=== PATIENT | female | born 1960 | race Caucasian/White ===

== ENCOUNTER 2016-12-02 10:40 | Emergency (ER) | payer OTHER ==
[~2016-12-02] VITALS: Ht 160 cm; Wt 109.0 kg
[~2016-12-02 10:40] MED LIST: ADVIN25/60 INH; ATR25 PO; FURO-85 PO; GABA300C19 PO; LEVO100T PO; LXP20 PO; OXGN; RMR15 PO; SPRIN/30 INH; WARF-246 PO
[2016-12-02 10:52] VITALS: TEMP 36.5; Ht 160 cm; Wt 109.0 kg
[2016-12-02] MEDS ORDERED: KLN5X PO (11:20)
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
[2016-12-02] MEDS ORDERED: ONDANSETRON 4MG OD TAB PO STA (12:52)
[2016-12-02] MEDS ORDERED: CYCLOBENZAPRINE HCL 10 MG TAB ONE (12:56)
[2016-12-02] MEDS ORDERED: ACETAMINOPHEN/CODEINE 300/30MG TAB PO ONE (13:00)
[2016-12-02] MEDS ORDERED: CYCLOBENZAPRINE HCL 5 MG TAB PO ONE (13:00)
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
--- NOTE | 2016-12-02 14:12 | EMERGENCY ROOM VISIT NOTE ---
ED Visit Note First contact with patient: 11:36 I have personally seen and evaluated the patient with the physician engineer first assistant. I agree with the diagnostic/management decisions and have personally been involved in these decisions and agree with the diagnosis.
[2016-12-02] MEDS ORDERED: CYCL10TA6 PO (14:17)
[2016-12-02] MEDS ORDERED: TRAMADOL HCL 50 MG TAB PO STA (14:25)
[2016-12-02 16:30] VITALS: BP 130/89; PULSE 86; O2SAT 97
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
== END 2016-12-02 16:30 | disposition home or self-care (01) ==
LOC: C.EDB 10:42 → C.EDC 16:30
DX: R42 Dizziness and giddiness (principal); M54.2 Cervicalgia; M54.5 Low back pain; V47.5XXA Car driver injured in collision with fixed or stationary object in traffic accident, initial encounter; J45.909 Unspecified asthma, uncomplicated; I48.91 Unspecified atrial fibrillation; J44.9 Chronic obstructive pulmonary disease, unspecified; F32.9 Major depressive disorder, single episode, unspecified; E78.5 Hyperlipidemia, unspecified; M19.90 Unspecified osteoarthritis, unspecified site; Z86.73 Personal history of transient ischemic attack (TIA), and cerebral infarction without residual deficits; F25.9 Schizoaffective disorder, unspecified; G40.909 Epilepsy, unspecified, not intractable, without status epilepticus; Z79.899 Other long term (current) drug therapy

== ENCOUNTER 2020-09-12 21:54 | Inpatient (IN) ==
[2020-09-12] MEDS ORDERED: SODIUM CHLORIDE 0.9% 500 ML IV SCH (22:00)
[2020-09-12 22:38] LABS: Basophils # (auto) 0.02 K/uL (0-0.2); Basophils % (auto) 0.1 %; Hematocrit (blood only) 40.3 % (37-47); Hemoglobin 13.2 g/dL (12.0-16.0); Immature Granulocytes # (auto) 0.06 K/uL (0.00-0.02); Immature Granulocytes % (auto) 0.4 %; Lymphocytes # (auto) 1.72 K/uL (1.2-3.4); Mean Corpuscular Hemoglobin 31.7 pg (25-34); Mean Corpuscular Hgb Conc 32.8 g/dL (32-36); Mean Corpuscular Volume 96.9 fL (80-100); Mean Platelet Volume 8.7 fL (7.4-10.4); Monocytes # (auto) 1.22 K/uL (0.11-0.59); Monocytes % (auto) 8.5 %; Neutrophils # (auto) 11.31 K/uL (1.4-6.5); Platelet Count 435 K/uL (130-400); RDW Coefficient of Variation 14.5 % (11.5-14.5); RDW Standard Deviation 51.4 fL (36.4-46.3); Red Blood Count 4.16 M/uL (4.2-5.4); White Blood Count 14.33 K/uL (4.8-10.8)
[2020-09-12 22:49] LABS: Partial Thromboplastin Time 28.5 Seconds (21.0-31.0); Prothrombin Time 10.9 Seconds (9.0-12.0)
[2020-09-12 22:55] LABS: Albumin Level 3.2 gm/dl (3.4-5.0); BUN Creatinine Ratio 26.9 (10-20); Calcium 8.7 mg/dl (8.5-10.1); Creatinine Clr Calc Pharmacy 133.3 ml/min; Est GFR (African American) 118.2; Est GFR (Non-African American) 101.9; Magnesium 1.9 mg/dl (1.8-2.4); Potassium 2.9 mmol/L (3.5-5.1)
[2020-09-12 23:05] LABS: Albumin Globulin Ratio 0.7 (0.9-2); Bilirubin,Total 0.4 mg/dl (0.2-1); Globulin 4.3 gm/dl (2.5-4.0); Thyroid Stimulating Hormone 0.28 uIu/ml (0.300-4.500); Total Protein 7.5 gm/dl (6.4-8.2); Troponin I 0.017 ng/ml (0-0.045)
[2020-09-12 23:07] LABS: Appearance Urine Clear (Clear); Bacteria Urine Automated 4+ (Negative); Bilirubin Urine Negative (Negative); Blood Urine Trace (Negative); Color Urine Yellow; Epithelial Cell Urine Auto 20-30 /lpf (0-5); Glucose Urine UA Negative (Negative); Ketones Urine Negative (Negative); Leukocyte Esterase Urine 1+ (Negative); Nitrite Urine Positive (Negative); Protein Urine Negative (Negative); RBC Urine Automated 0-4 /hpf (0-4); Specific Gravity Urine 1.018 (1.000-1.030); Urobilinogen Urine Negative (Negative)
[2020-09-12] MEDS ORDERED: PIPERACILLIN/TAZOBACTAM 4.5 GM/120 ML BAG IV ONE (23:10)
[2020-09-12] MEDS ORDERED: NYSTATIN POWDER 15GM BTL EXT STA (23:10)
[2020-09-12] MEDS ORDERED: PIPERACILL/TAZOBAC CONSULT ACTIVE PRN (23:10)
[2020-09-12 23:17] LABS: T4 Free Thyroxine 0.98 ng/dl (0.8-1.6)
--- NOTE | 2020-09-12 23:18 | Emergency Department Note ---
History of Present Illness General Chief complaint: Altered Mental Status Stated complaint: altered mental Time Seen by Provider: 09/12/20 21:57 History of Present Illness Maximum Pain Intensity: 5 This 60-year-old presents to the ER complaining of increased confusion for the past few days who is coming from home Location: Generalized Quality: Confused Severity: Moderate Duration: Past few days Timing: Started a few days ago Context: Family was concerned and sent her in Modifying factors: better with nothing; worse with nothing Patient states she is had multiple strokes and has a home health aide that helps care for her. Patient states she is not showered in a week. She has been in the same diaper for the past few days. Patient denies chest pain, dyspnea, abdominal pain, vomiting, diarrhea, flulike illness. Patient is answering questions appropriately. Home Medications Home Medications Medication Instructions Recorded Confirmed Type acetaminophen [Tylenol] 325 - 650 mg PO DIRECTED PRN 09/12/20 09/13/20 History albuterol sulfate 2.5 mg INHALATION Q4H PRN 09/12/20 09/13/20 History albuterol sulfate [ProAir HFA] 2 puff INHALATION QID 09/12/20 09/13/20 History cholestyramine-aspartame [Questran 4 g PO BID 09/12/20 09/13/20 History Light] codeine-guaifenesin 5 ml PO Q4H PRN 09/12/20 09/13/20 History fluticasone propionate [Flovent 2 puff INHALATION BID 09/12/20 09/13/20 History HFA] hydroxyzine HCl 50 mg PO TID PRN 09/12/20 09/13/20 History ipratropium-albuterol [DuoNeb] 3 ml INHALATION Q4H PRN 09/12/20 09/13/20 History lorazepam 0.5 mg PO BID PRN 09/12/20 09/13/20 History mirtazapine 30 mg PO HS 09/12/20 09/13/20 History ondansetron HCl [Zofran] 4 mg PO Q8H PRN 09/12/20 09/13/20 History sertraline 150 mg PO DAILY 09/12/20 09/13/20 History warfarin See Rx Instructions .ROUTE .COMPLEX 09/12/20 09/13/20 History Allergies Allergy/AdvReac Type Severity Reaction Status Date / Time aspirin Allergy Unknown TAKES Verified 09/12/20 23:23 COUMADIN salicylates AdvReac Unknown ?DUE TO Verified 09/12/20 23:23 COUMADIN? Past Med/Surg History Medical History Atrial fibrillation History of stroke "embolic stroke, underlying PFO" Surgical History Status post cholecystectomy Status post hysterectomy Social History Smoking Status: Current every day smoker Feels Safe at Home: Yes Review of Systems A total of 10 systems reviewed and were otherwise negative Physical Exam Vital Signs Vital Signs - 24 hr 09/12/20 22:00 09/12/20 22:04 09/12/20 22:05 Temperature 37.2 C Temperature Source Oral Pulse Rate 84 93 H 78 Pulse Rate [Finger] Pulse Rate from SpO2 Sensor 84 78 Respiratory Rate 17 24 17 Respiratory Effort / Characteristics Non-Labored Respiratory Depth Normal Blood Pressure 124/73 124/73 Blood Pressure [Right Arm] Blood Pressure Mean 81 90 Blood Pressure Mean [Right Arm] Blood Pressure Position Sitting Pulse Oximetry 97 94 98 Oxygen Delivery Method Nasal Cannula Oxygen Flow Rate 3 Sepsis New/Unexplained Change in Mental Status Yes Sepsis Action Taken by Nursing No Action Required 09/12/20 22:10 09/12/20 22:20 09/12/20 22:22 Temperature Temperature Source Pulse Rate 80 78 Pulse Rate [Finger] Pulse Rate from SpO2 Sensor Respiratory Rate 18 18 Respiratory Effort / Characteristics Respiratory Depth Blood Pressure Blood Pressure [Right Arm] Blood Pressure Mean Blood Pressure Mean [Right Arm] Blood Pressure Position Pulse Oximetry 94 Oxygen Delivery Method Nasal Cannula Oxygen Flow Rate 3 Sepsis New/Unexplained Change in Mental Status Sepsis Action Taken by Nursing 09/12/20 22:30 09/12/20 22:31 09/12/20 22:40 Temperature Temperature Source Pulse Rate 77 78 79 Pulse Rate [Finger] Pulse Rate from SpO2 Sensor Respiratory Rate 13 20 27 H Respiratory Effort / Characteristics Respiratory Depth Blood Pressure 112/64 Blood Pressure [Right Arm] Blood Pressure Mean 67 Blood Pressure Mean [Right Arm] Blood Pressure Position Pulse Oximetry Oxygen Delivery Method Oxygen Flow Rate Sepsis New/Unexplained Change in Mental Status Sepsis Action Taken by Nursing 09/12/20 22:50 09/12/20 23:00 09/12/20 23:26 Temperature Temperature Source Pulse Rate 83 82 80 Pulse Rate [Finger] Pulse Rate from SpO2 Sensor Respiratory Rate 21 17 28 H Respiratory Effort / Characteristics Respiratory Depth Blood Pressure Blood Pressure [Right Arm] Blood Pressure Mean Blood Pressure Mean [Right Arm] Blood Pressure Position Pulse Oximetry Oxygen Delivery Method Oxygen Flow Rate Sepsis New/Unexplained Change in Mental Status Sepsis Action Taken by Nursing 09/12/20 23:30 09/12/20 23:40 09/12/20 23:46 Temperature Temperature Source Pulse Rate 81 85 Pulse Rate [Finger] 84 Pulse Rate from SpO2 Sensor 81 85 Respiratory Rate 17 20 22 Respiratory Effort / Characteristics Respiratory Depth Blood Pressure 121/60 Blood Pressure [Right Arm] 121/60 Blood Pressure Mean 92 Blood Pressure Mean [Right Arm] 80 Blood Pressure Position Pulse Oximetry 98 98 97 Oxygen Delivery Method Nasal Cannula Oxygen Flow Rate 3 Sepsis New/Unexplained Change in Mental Status Sepsis Action Taken by Nursing 09/12/20 23:50 09/13/20 00:00 09/13/20 00:10 Temperature Temperature Source Pulse Rate 77 71 75 Pulse Rate [Finger] Pulse Rate from SpO2 Sensor 77 72 75 Respiratory Rate 17 13 15 Respiratory Effort / Characteristics Respiratory Depth Blood Pressure 114/60 Blood Pressure [Right Arm] Blood Pressure Mean 68 Blood Pressure Mean [Right Arm] Blood Pressure Position Pulse Oximetry 97 96 99 Oxygen Delivery Method Oxygen Flow Rate Sepsis New/Unexplained Change in Mental Status Sepsis Action Taken by Nursing 09/13/20 00:20 Temperature Temperature Source Pulse Rate 73 Pulse Rate [Finger] Pulse Rate from SpO2 Sensor 73 Respiratory Rate 13 Respiratory Effort / Characteristics Respiratory Depth Blood Pressure Blood Pressure [Right Arm] Blood Pressure Mean Blood Pressure Mean [Right Arm] Blood Pressure Position Pulse Oximetry 99 Oxygen Delivery Method Oxygen Flow Rate Sepsis New/Unexplained Change in Mental Status Sepsis Action Taken by Nursing VITALS: Vitals are noted on the nurse's note and reviewed by myself. Vital signs stable. GENERAL: White female malodorous, in no acute distress, nondiaphoretic, well- developed well-nourished. SKIN: Capillary reflex less than 2 seconds. HEENT: Normocephalic. PERRLA. EOMI. Nares patent. Mucous membranes dry. Neck is supple without nuchal rigidity. HEART: Regular rate and rhythm LUNGS: Clear to auscultation bilaterally without wheezes, rales or rhonchi. No retractions or accessory muscle use. ABDOMEN: Positive bowel sounds x 4. Normal tympanic percussion. Soft, candidiasis and cellulitis to the left lower pannus and abdomen, malodorous, draining, tender to palpation lower abdomen, without masses or organomegaly. Alejandro sign negative. No guarding or rebound tenderness. No CVA tenderness exam: No perineum infection, no perineum tenderness. MUSCULOSKELETAL: No gross musculoskeletal defects. NEURO: Patient was alert and oriented to person place and time. No focal neurological deficits. Course Administered Medications Potassium Chloride (K Harrison / Wtr) 10 meq in 100 mls @ 100 mls/hr IV Q1H MRAY Stop: 09/13/20 01:14 Last Admin: 09/13/20 00:28 Dose: 100 mls/hr Documented by: [id number] Discontinued Medications Sodium Chloride (Nss) 500 mls @ 999 mls/hr IV .Q31M MARY Stop: 09/12/20 22:30 Last Infusion: 09/12/20 22:59 Dose: 0 mls/hr Documented by: [id number] Admin: 09/12/20 22:21 Dose: 999 mls/hr Documented by: [id number] Piperacillin Sod/Tazobactam Sod (Zosyn) 4.5 gm in 120 mls @ 240 mls/hr IV NOW ONE Stop: 09/12/20 23:39 Last Admin: 09/12/20 23:48 Dose: 240 mls/hr Documented by: [id number] Ioversol (Ioversol 100ml) 93 ml IV ONCE ONE Stop: 09/12/20 23:20 Last Admin: 09/12/20 23:19 Dose: 93 ml Documented by: [id number] Nystatin (Nystatin Powder 15gm Btl) 1 appln EXT NOW STA Stop: 09/12/20 23:11 Last Admin: 09/12/20 23:48 Dose: 1 appln Documented by: [id number] Medical Decision Making Medical Records Attestation: I reviewed the patient's medical records. Home Medications Current Medication List: was personally reviewed by me Laboratory Data Attestation: I reviewed the patient's lab results. Result diagrams: 09/12/20 22:17 09/12/20 22:17 Lab Results 09/12/20 09/12/20 09/12/20 Range/Units 22:17 22:17 22:17 WBC 14.33 H (4.8-10.8) K/uL RBC 4.16 L (4.2-5.4) M/uL Hgb 13.2 (12.0-16.0) g/dL Hct 40.3 (37-47) % MCV 96.9 (80-100) fL MCH 31.7 (25-34) pg MCHC 32.8 (32-36) g/dL RDW Std Deviation 51.4 H (36.4-46.3) fL RDW Coeff of Ursula 14.5 (11.5-14.5) % Plt Count 435 H (130-400) K/uL MPV 8.7 (7.4-10.4) fL Immature Gran % (Auto) 0.4 % Neut % (Auto) 79.0 % Lymph % (Auto) 12.0 % Gal[place] % (Auto) 8.5 % Eos % (Auto) 0.0 % Baso % (Auto) 0.1 % Neut # (Auto) 11.31 H (1.4-6.5) K/uL Lymph # (Auto) 1.72 (1.2-3.4) K/uL [place] # (Auto) 1.22 H (0.11-0.59) K/uL Eos # (Auto) 0.00 (0-0.5) K/uL Baso # (Auto) 0.02 (0-0.2) K/uL Immature Gran # (Auto) 0.06 H (0.00-0.02) K/uL PT 10.9 (9.0-12.0) Seconds INR 1.0 (0.9-1.1) APTT 28.5 (21.0-31.0) Seconds PTT Ratio 1.0 Sodium 135 L (136-145) mmol/L Potassium 2.9 L (3.5-5.1) mmol/L Chloride 98 (98-107) mmol/L Carbon Dioxide 34 H (21-32) mmol/L Anion Gap 4.0 (3-11) BUN 15 (7-18) mg/dl Creatinine 0.55 L (0.6-1.2) mg/dl Est Cr Clr Drug Dosing 133.3 ml/min Est GFR ( Amer) 118.2 Est GFR (Non-Af Amer) 101.9 BUN/Creatinine Ratio 26.9 H (10-20) Glucose 139 H (70-99) mg/dl Calcium 8.7 (8.5-10.1) mg/dl Magnesium 1.9 (1.8-2.4) mg/dl Total Bilirubin 0.4 (0.2-1) mg/dl AST 50 H (15-37) U/L ALT 94 H (12-78) U/L Alkaline Phosphatase 208 H (45-117) U/L Total Creatine Kinase 487 H (26-192) U/L Troponin I 0.017 (0-0.045) ng/ml Total Protein 7.5 (6.4-8.2) gm/dl Albumin 3.2 L (3.4-5.0) gm/dl Globulin 4.3 H (2.5-4.0) gm/dl Albumin/Globulin Ratio 0.7 L (0.9-2) TSH 0.280 L (0.300-4.500) uIu/ml Free T4 0.98 (0.8-1.6) ng/dl Urine Color Urine Appearance (Clear) Urine pH (4.5-7.5) Ur Specific Roselle (1.000-1.030) Urine Protein (Negative) Urine Glucose (UA) (Negative) Urine Ketones (Negative) Urine Blood (Negative) Urine Nitrite (Negative) Urine Bilirubin (Negative) Urine Urobilinogen (Negative) Ur Leukocyte Esterase (Negative) Urine WBC (Auto) (0-5) /hpf Urine RBC (Auto) (0-4) /hpf U Hyaline Cast (Auto) (0-5) /lpf U Epithel Cells (Auto) (0-5) /lpf Urine Bacteria (Auto) (Negative) Urine Opiates Screen (Neg) Ur Methadone, Qual (Neg) Urine Barbiturates (Neg) Ur Phencyclidine (PCP) (Neg) U Amphetamin/Meth Scrn (Neg) MDMA (Ecstasy) Screen (Neg) U Benzodiazepines Scrn (Neg) Ur Cocaine Metabolite (Neg) U Marijuana (THC) Screen (Neg) Ethyl Alcohol mg/dL (0-3) mg/dl 10/29/20 10/29/20 10/29/20 Range/Units 22:19 22:50 22:50 WBC (4.8-10.8) K/uL RBC (4.2-5.4) M/uL Hgb (12.0-16.0) g/dL Hct (37-47) % MCV (80-100) fL MCH (25-34) pg MCHC (32-36) g/dL RDW Std Deviation (36.4-46.3) fL RDW Coeff of Ursula (11.5-14.5) % Plt Count (130-400) K/uL MPV (7.4-10.4) fL Immature Gran % (Auto) % Neut % (Auto) % Lymph % (Auto) % [place] % (Auto) % Eos % (Auto) % Baso % (Auto) % Neut # (Auto) (1.4-6.5) K/uL Lymph # (Auto) (1.2-3.4) K/uL [place] # (Auto) (0.11-0.59) K/uL Eos # (Auto) (0-0.5) K/uL Baso # (Auto) (0-0.2) K/uL Immature Gran # (Auto) (0.00-0.02) K/uL PT (9.0-12.0) Seconds INR (0.9-1.1) APTT (21.0-31.0) Seconds PTT Ratio Sodium (136-145) mmol/L Potassium (3.5-5.1) mmol/L Chloride (98-107) mmol/L Carbon Dioxide (21-32) mmol/L Anion Gap (3-11) BUN (7-18) mg/dl Creatinine (0.6-1.2) mg/dl Est Cr Clr Drug Dosing ml/min Est GFR ( Amer) Est GFR (Non-Af Amer) BUN/Creatinine Ratio (10-20) Glucose (70-99) mg/dl Calcium (8.5-10.1) mg/dl Magnesium (1.8-2.4) mg/dl Total Bilirubin (0.2-1) mg/dl AST (15-37) U/L ALT (12-78) U/L Alkaline Phosphatase (45-117) U/L Total Creatine Kinase (26-192) U/L Troponin I (0-0.045) ng/ml Total Protein (6.4-8.2) gm/dl Albumin (3.4-5.0) gm/dl Globulin (2.5-4.0) gm/dl Albumin/Globulin Ratio (0.9-2) TSH (0.300-4.500) uIu/ml Free T4 (0.8-1.6) ng/dl Urine Color Yellow Urine Appearance Clear (Clear) Urine pH 6.0 (4.5-7.5) Ur Specific Ros[place] 1.018 (1.000-1.030) Urine Protein Negative (Negative) Urine Glucose (UA) Negative (Negative) Urine Ketones Negative (Negative) Urine Blood Trace H (Negative) Urine Nitrite Positive A (Negative) Urine Bilirubin Negative (Negative) Urine Urobilinogen Negative (Negative) Ur Leukocyte Esterase 1+ H (Negative) Urine WBC (Auto) 5-10 H (0-5) /hpf Urine RBC (Auto) 0-4 (0-4) /hpf U Hyaline Cast (Auto) 1-5 (0-5) /lpf U Epithel Cells (Auto) 20-30 H (0-5) /lpf Urine Bacteria (Auto) 4+ H (Negative) Urine Opiates Screen Neg (Neg) Ur Methadone, Qual Neg (Neg) Urine Barbiturates Neg (Neg) Ur Phencyclidine (PCP) Neg (Neg) U Amphetamin/Meth Scrn Neg (Neg) MDMA (Ecstasy) Screen Neg (Neg) U Benzodiazepines Scrn Neg (Neg) Ur Cocaine Metabolite Neg (Neg) U Marijuana (THC) Screen Neg (Neg) Ethyl Alcohol mg/dL < 3.0 (0-3) mg/dl Imaging Data Attestation: I personally reviewed and interpreted this imaging study as follows: MDM Narrative Prior records/ancillary studies reviewed and summarized above. Nursing notes reviewed. Additional history obtained from EMS. The patient's history was concerning for possible drug ingestion, infection and possibly altered. Differential diagnosis: Etiologies such as metabolic, infection, hypo/hyperglycemia, electrolyte abno rmalities, cardiac sources, intracerebral event, toxicologic, neurologic, as well as others were entertained. Physical examination: As above. ER treatment provided: IV Lock An order was placed for continuous cardiac monitoring. The monitor shows a rate of 60-100 with a sinus rhythm. Zosyn, IV fluids, nystatin, potassium On reassessment the patient felt better. Diagnostics interpretation by me: ECG: Ordered for altered mental status EKG: Normal sinus, normal intervals, no acute ST-T wave changes. Impression normal sinus rhythm interpreted by myself I think arrhythmia is unlikely. EKG shows normal sinus rhythm with no interval abnormalities such as QT prolongation or WPW. There are no findings to suggest Brugada syndrome. Cardiac monitoring in the emergency department reveals no tachycardic or bradycardic dysrhythmia. Hypertrophic cardiomyopathy was considered but there are no clear historical elements pointing toward this. EKG is not suggestive. The QRS voltage is not extremely large and there are no suggestive Q waves. The labs revealed leukocytosis, elevated LFTs, hypokalemia Urine with possible infection and sent for culture. Imaging studies: Preliminary Findings Only See Final Report For Complete Findings CT HEAD: Comparison 12/02/2016. No acute intracranial hemorrhage, edema or mass. Old left frontal lobe infarct with encephalomalacia, as before. Additional small old right frontal infarcts, as before. New 6 mm left pontine hypodensity which may be a small infarct of indeterminate acuity though possibly chronic. No extra-axial fluid collection. Chronic sinus disease with possible superimposed acute right maxillary and sphenoid sinusitis. CT ABDOMEN & PELVIS With Contrast: Comparison 04/06/2015. No acute intra-abdominal inflammatory process. No dilated small bowel. Unremarkable appendix. Mild gas distended transverse colon. Mild colonic diverticulosis. No CT evidence for diverticulitis. Cholecystectomy. Mild chronic left hydronephrosis versus extra and pelvis, as before. Thickened left adrenal gland which may reflect hyperplasia. No abdominal aortic aneurysm. Hysterectomy. Radiologist: Jose Berrios M.D. Consultation: A consultation was placed with the hospitalist, Dr Slade. The case was discussed and diagnostics were reviewed. The patient was evaluated in the ER for further treatment. Exam and history seem consistent with UTI, pannus infection, possible stroke. Medicine was consulted. Patient was started on antibiotics. She is agreeable to treatment plan of admission. I did speak to the family and informed them of the way the patient was brought to the ER. I informed him that she not showered in a week and that her diaper had been on for several days per nursing. They state they will talk with the home health care company. Results reviewed with patient all questions were answered. She is in agreement to treatment plan of admission. By the evaluation outlined above emergent etiologies such as cardiac sources, toxologic, abnormalities blood glucose, metabolic, as well as others were deemed relatively unlikely. The pt informed about the findings as listed above. All questions were answered and pleased with the treatment. The chart was completed utilizing [employer] Speech voice recognition software. Grammatical errors, random word insertions, pronoun errors, and incomplete sentences are an occassional consequence of this system due to software limitations, ambient noise, and hardware issues. Any formal questions or concerns about the content, text, or information contained within the body of this dictation should be directly addressed to the physician assistant professor of surgery for clarification. Attending Attestation: I Christopher Schmid MD independently saw and evaluated this patient and agree with history and physical is otherwise documented by the physician assistant professor of surgery. See their note for full details. Patient poor historian. Patient has evidence of UTI and some irritation of her pannus. Fairly soft benign abdomen but some irritation in the left lower quadrant of the pannus crease. Patient with a nonfocal exam moving all extremities but again a very poor historian and CT questions possible age-indeterminate lacunar infarct. Timing last known well is unclear and not a TPA candidate. Doubt large vessel occlusion. Given Zosyn will be evaluated by the hospitalist. Impression & Plan Abdominal wall cellulitis, UTI (urinary tract infection), Hypokalemia, History of stroke Discharge Plan Visit Data Chief Complaint: Altered Mental Status Stated Complaint: altered mental ED Provider: Christopher Schmid ED Midlevel Provider: Niharika Street Discharge Problem: Abdominal wall cellulitis, UTI (urinary tract infection), Hypokalemia, History of stroke Patient Disposition: Admitted As Inpatient Condition: Fair Forms Stand Alone [facility] Pres[facility] Prescriptions: No Action warfarin 10 mg tablet See Rx Instructions .ROUTE .COMPLEX RF: 0 sertraline 100 mg tablet 150 mg PO DAILY RF: 0 hydroxyzine HCl 50 mg tablet 50 mg PO TID PRN (Reason: Anxiety) RF: 0 lorazepam 0.5 mg tablet 0.5 mg PO BID PRN (Reason: Anxiety) RF: 0 mirtazapine 30 mg tablet 30 mg PO HS RF: 0 codeine-guaifenesin 10-100 mg/5 mL liquid 5 ml PO Q4H PRN (Reason: Cough) RF: 0 Flovent HFA 110 mcg/actuation HFA aerosol inhaler 2 puff INHALATION BID RF: 0 acetaminophen [Tylenol] 325 mg Tablet 325 - 650 mg PO DIRECTED PRN (Reason: Pain) RF: 0 ipratropium-albuterol [DuoNeb] 0.5 mg-3 mg(2.5 mg base)/3 mL Solution For Nebulization 3 ml INHALATION Q4H PRN (Reason: Shortness Of Breath Or Wheezing) RF: 0 albuterol sulfate 2.5 mg /3 mL (0.083 %) Solution For Nebulization 2.5 mg INHALATION Q4H PRN (Reason: Wheezing) RF: 0 ondansetron HCl [Zofran] 4 mg Tablet 4 mg PO Q8H PRN (Reason: Nausea) RF: 0 albuterol sulfate [ProAir HFA] 90 mcg/actuation Hfa Aerosol Inhaler 2 puff INHALATION QID RF: 0 Questran Light 4 gram Powder 4 g PO BID RF: 0 Referrals Referrals: Roger Alexandra MD [Primary Care Provider] -
[2020-09-12] MEDS ORDERED: IOVERSOL 100ml IV ONE (23:19)
[2020-09-12 23:38] LABS: Amphetamines+Metham, Urine Neg (Neg); Barbiturates, Urine Neg (Neg); Benzodiazepine, Urine Neg (Neg); Cocaine, Urine Neg (Neg); MDMA (Ecstacy), Urine Neg (Neg); Methadone, Urine Neg (Neg); Opiate, Urine Neg (Neg); Phencyclidine, Urine Neg (Neg)
[2020-09-13] MEDS: POTASSIUM CHLORIDE / WTR 10 MEQ/100 ML PLCT IV SCH ×2 (00:28→01:29)
--- NOTE | 2020-09-13 04:27 | History and Physical Report ---
DATE OF ADMISSION: 09/13/2020 CHIEF COMPLAINT: Altered mental status. HISTORY OF PRESENT ILLNESS: This is a 60-year-old female with past medical history significant for hypothyroidism, COPD, obstructive sleep apnea, oxygen dependent, idiopathic cardiomyopathy, history of patent foramen ovale, history of multiple CVAs on Coumadin, morbid obesity, history of narcotic addiction, history of questionable von Willebrand disease, history of depression, ongoing tobacco use disorder, generalized anxiety disorder. The patient lives alone at home. She has caregivers. She says she has caregivers everyday from 9:00 to 5:00 and son lives in town. Was brought in because of question of altered mental status. The patient currently is alert and oriented, answering appropriately, but she was somewhat confused at home. On the imaging studies, CAT scan is showing possible pivut-jf-[id number] stroke and also UTI and abdominal wall cellulitis. Currently resting comfortably and hemodynamically stable, alert and oriented to name, place, and time. She is somewhat difficult with her date, but could tell the year and month. She says she has some left-sided weakness from the previous stroke. She says had about nine strokes and that is why she is on Coumadin. She said recently she had a stroke and she was in [facility]. She is noncompliant with Coumadin. Says she is depressed and she does not take Coumadin regularly as she is supposed to take and today the INR is only 1. The patient states she ambulates without any support. She can swallow food without any difficulty. Speech is clear. No facial droop is seen. Denies any headache, no blurred visions, no earache, no runny nose, no sore throat, no loss of sense of smell or taste. She says she is not exposed to any COVID, and says the caregivers are not sick. She was just recently treated with azithromycin for her cough. She says she still has some cough, but not bringing phlegm anymore. Denies any fevers, but feels cold. Denies any chest pain. She says she is already short of breath because of her COPD and that has not changed. Denies any nausea, vomiting. No abdominal pain. She says she always has diarrhea. Denies any blood in the stool or black stools. She says she is not micturating much. No swelling in the legs seen. ALLERGIES: ASPIRIN AND SALICYLATES. PAST MEDICAL HISTORY: As mentioned above. PAST SURGICAL HISTORY: Colonoscopy with biopsy, EGD with biopsies, EGD with endoscopic ultrasound, laparoscopic inguinal hernia repair, cholecystectomy, total hysterectomy. MEDICATIONS: The patient is on Robitussin A-C 5 mL p.o. q. 4 hours p.r.n., Coumadin 20 mg on Mondays and 15 mg all other days as directed by Coumadin clinic, Remeron 30 mg p.o. at bedtime, Ativan 0.5 mg p.o. b.i.d. p.r.n., Zoloft 150 mg p.o. daily, hydroxyzine 50 mg p.o. t.i.d. p.r.n., Zofran 4 mg p.o. q. 8 hours p.r.n., albuterol 2 puffs q. 4 hours p.r.n., Flovent HFA 110 mcg 2 puffs b.i.d., cholestyramine 1 scoop b.i.d., Tylenol 325 mg p.r.n., DuoNebs every 4 hours p.r.n., oxygen 4 liters during the day as needed and at bedtime. FAMILY HISTORY: Significant for father had asthma, heart disorder, schizophrenia; mother has hepatitis, COPD; sister has MR and epilepsy; another sister from sleep apnea. SOCIAL HISTORY: Currently lives alone, has caregivers. Smokes 0.5 packs a day for 30 years as per the records. No alcohol use, no drug use. REVIEW OF SYSTEMS: As per HPI. Rest of the review of systems negative. PHYSICAL EXAMINATION: GENERAL: The patient is morbidly obese, not in acute distress. VITAL SIGNS: Temperature 37.2, pulse 67, respiratory rate 20, blood pressure 119/59, oxygen 97% on 3 liters. HEENT: Atraumatic. Pupils equal, round, and reactive to light. Extraocular muscles intact. Oral mucosa moist. NECK: No JVD, no neck masses seen. CARDIOVASCULAR: S1, S2 heard, regular rate and rhythm, no murmur, no gallop. RESPIRATORY SYSTEM: Normal AP diameter. No accessory muscle use. Bilateral coarse rhonchi and occasional wheezing heard. ABDOMEN: Soft, bowel sounds present. Erythematous rash seen in the folds of the abdomen and also extending into groins. No distention. CENTRAL NERVOUS SYSTEM: Cranial nerves II-XII grossly intact. No facial droop. Speech clear. Alert and oriented. Extraocular muscles intact. Moves extremities. Coordination was normal. Power 4/5 to 5/5 in right extremities, 3/5 to 4/5 in left extremities. Sensation is intact. Position sense intact. EXTREMITIES: No edema, no erythema seen. LABORATORY DATA: WBC 14.3, hemoglobin 13.2, hematocrit 40.3, platelets 435. PT 10.9, INR 1, APTT 28.5. Sodium 135, potassium 2.9, chloride 98, bicarbonate 34, BUN 15, creatinine 0.5, serum glucose 139, calcium 8.7, magnesium 1.9, total bilirubin 0.4, AST 50, ALT 94, alkaline phosphatase 208, total creatine kinase 487. Troponin I 0.017. TSH 0.2, free T4 0.9. Urinalysis positive for nitrite, leukocyte esterase, and +4 bacteria. Urine drug screen negative. Alcohol level is less than 3. IMAGING DATA: Chest x-ray, no acute findings seen. CT of the head, preliminary report shows no acute intracranial hemorrhage, edema or mass. Old left frontal lobe infarct with encephalomalacia as before. Additional small old right frontal infarcts as before. A new 6 mm left pontine hypodensity, which may be small infarct of indeterminate acuity, though possibly chronic. Chronic sinus disease with possible superimposed acute right maxillary and sphenoid sinusitis. CT of abdomen and pelvis with contrast, no acute process seen. EKG: Normal sinus rhythm, rate of 75, nonspecific ST abnormality, no significant change was found. ASSESSMENT AND PLAN: This is a 60-year-old female who presents with altered mental status most likely secondary to abdominal wall cellulitis and urinary tract infection. Currently, her mental status seems to be okay. 1. Altered mental status .Encephalopathy possibly from uti and panniculitis, sinusitis. Empirically started on Zosyn in the ER. Will continue with Zosyn. Also had doxycycline. Follow the cultures. Follow the response. CT scan preliminary report showing possible [id number] strokes.Will follow final report. We will follow the MRI report. The patient is supposed to be on Coumadin because of recurrent strokes with patent foramen ovale, noncompliant. INR is subtherapeutic. Once MRI scan comes back, then we can start on possible heparin bridge/Lovenox bridge for Coumadin. Closely monitor in the tele floor. Also, will do full stroke workup with echocardiogram and carotid Doppler, speech evaluation, PT, OT, and neuro evaluation. 2. UTI Antibiotics as above. will follow cultures. 3. Panniculitis. Erythematous rash extending from abdominal folds to groin. Antibiotics as above and nystatin powder bid. 4. Hypokalemia: We will replace. 5. Mild elevation of AST, ALT, and alkaline phosphatase. CT scan of the abdomen and pelvis preliminary was okay. We will follow the final report and follow the repeat labs in the a.m. 6. History of obstructive sleep apnea She says she uses oxygen in the night time. 7. Morbid obesity, needs counseling. 8. Chronic obstructive pulmonary disease mild flare , ongoing tobacco abuse, needs counseling for tobacco abuse. Will continue home inhalers and nebs. Antibiotics as above and will give a short course of p.o. prednisone, for possible mild flare. 9. Depression and general anxiety disorder. Continue her home medication of Remeron, Zoloft, and Ativan p.r.n. and hydroxyzine p.r.n. 10. Hypothyroidism. Continue Synthroid. 11. Deep venous thrombosis prophylaxis. Currently sequential compression devices. Inr subtherapeutic. May start on Lovenox bridge once final ct report available.. DISPOSITION: Admit to tele floor. Expect to discharge home and follow with family doctor. PT and OT prior to discharge. Social service to help with discharge planning.Question of care at home with abdominal wall/groin cellulitis CODE STATUS: Full code as per my discussion with the patient. CHERIE
[2020-09-13] MEDS ORDERED: POTASSIUM CHLORIDE CRTAB 20 MEQ TABCR PO STA ×2 (06:59→09:18)
[2020-09-13] MEDS ORDERED: ALBUT/IPRATROP 3MG/0.5MG NEB 3 ML VIAL INH PRN (07:02)
[2020-09-13] MEDS ORDERED: PHARMACIST DISCHARGE MED REC CONSULT PRN (07:02)
[2020-09-13] MEDS ORDERED: NITROGLYCERIN SL 0.4 MG/TAB TAB SL PRN (07:02)
--- NOTE | 2020-09-13 07:13 | CT Scan Report ---
CT head/brain wo con CLINICAL HISTORY: Acute change in mental status COMPARISON STUDY: 12/02/2016 TECHNIQUE: Axial CT of the brain is performed from the vertex to the skull base. IV contrast was not administered for this examination. A dose lowering technique was utilized adhering to the principles of ALARA. CT DOSE: 614.27 mGy.cm FINDINGS: There is an old left frontoparietal cortical infarct. There is no CT evidence of acute cortical infar ction. There is no midline shift. There is no evidence of acute hemorrhage. There is an age-indetermi harrison 6 mm left pontine infarct. There are scattered small right frontal lobe infarcts. There are mild white matter hypodensities likely on a small vessel basis. There is no evidence of pathologic ventricular dilatation. There is air-fluid within the right maxillary sinus suggestive of sinusitis. There is air-fluid of th e sphenoid. There is mucosal disease involving multiple ethmoid air cells. IMPRESSION: 1. Inflammatory changes within the paranasal sinuses 2. Old areas of cortical infarction 3. New age indeterminate 6 mm left pontine hypodensity, likely representing an infarct. This is unlik bree to be hyperacute 4. No evidence of acute hemorrhage ACT 112: Negative or not required by law. Electronically signed by: Wesly Fontenot M.D. 09/13/2020 7:12 AM
[2020-09-13 07:23] LABS: Basophils # (auto) 0.01 K/uL (0-0.2); Basophils % (auto) 0.1 %; Eosinophils # (auto) 0.01 K/uL (0-0.5); Eosinophils % (auto) 0.1 %; Immature Granulocytes # (auto) 0.04 K/uL (0.00-0.02); Immature Granulocytes % (auto) 0.4 %; Lymphocytes # (auto) 1.64 K/uL (1.2-3.4); Lymphocytes % (auto) 14.4 %; Mean Corpuscular Hemoglobin 31.5 pg (25-34); Mean Corpuscular Hgb Conc 31.7 g/dL (32-36); Mean Corpuscular Volume 99.3 fL (80-100); Mean Platelet Volume 8.6 fL (7.4-10.4); Monocytes # (auto) 1.15 K/uL (0.11-0.59); Monocytes % (auto) 10.1 %; Neutrophils # (auto) 8.57 K/uL (1.4-6.5); Neutrophils % (auto) 74.9 %; Platelet Count 444 K/uL (130-400); RDW Coefficient of Variation 14.7 % (11.5-14.5); RDW Standard Deviation 53.2 fL (36.4-46.3); Red Blood Count 4.13 M/uL (4.2-5.4); White Blood Count 11.42 K/uL (4.8-10.8)
[2020-09-13] MEDS ORDERED: PIPERACILLIN/TAZOBACTAM 4.5 GM in DEXTROSE 5% 100 ML IV ONE (07:30)
--- NOTE | 2020-09-13 07:32 | CT Scan Report ---
ABDOMEN AND PELVIS CT WITH IV CONTRAST CT DOSE: 1697.43 mGy.cm HISTORY: lower abd pain TECHNIQUE: Multiaxial CT images of the abdomen and pelvis were performed following the use of intrave nous contrast. A dose lowering technique was utilized adhering to the principles of ALARA. COMPARISON STUDY: Abdomen and pelvis CT 04/06/2015. FINDINGS: The lung bases are essentially clear. No pneumoperitoneum. No pneumatosis. No suspicious ly tic or blastic osseous lesions. Small lipoma within the gastric antrum measuring 1.6 cm. Cholecystect juan carlos. The liver, spleen, and pancreas are unremarkable. Mild nodular thickening within the bilateral a drenal glands remains unchanged. Mild fullness within the left renal collecting system without lorin hydronephrosis. This remains unchanged and is likely chronic. Focal scarring within the left kidney i s also unchanged. No renal or ureteral stones. The bladder is unremarkable. No retroperitoneal lympha denopathy. No pelvic lymphadenopathy. Prior hysterectomy. Borderline distended and gas-filled transve rse colon and sigmoid colon. However, no evidence for bowel obstruction. No bowel wall thickening. No rmal appendix. IMPRESSION: 1. No bowel wall thickening or obstruction. 2. Normal appendix. 3. Stable mild fullness within the left renal collecting system without lorin hydronephrosis. No uret eral stones identified. 4. Cholecystectomy. 5. Additional findings as described above. ACT 112: Negative or not required by law. Electronically signed by: Otto Hendrickson M.D. 09/13/2020 7:31 AM
--- NOTE | 2020-09-13 07:42 | XRay Report ---
XR chest 1V portable CLINICAL HISTORY: weakness COMPARISON STUDY: 01/28/2016 FINDINGS: The heart is borderline enlarged. There is slight elevation of interstitium. An element of mild pulmonary vascular congestion cannot be excluded. There is no lobar consolidation. Basilar opaci ties are likely atelectatic.[There is an old left-sided rib fracture. No significant pleural effusion s are evident. Mild right hilar prominence is likely vascular. This should be followed up with a PA a nd lateral chest x-ray. IMPRESSION: 1. Possible mild pulmonary vascular congestion. Basilar opacity statistically atelectatic. 2. Mild right hilar prominence, likely vascular. ACT 112: Negative or not required by law. Electronically signed by: Wesly Fontenot M.D. 09/13/2020 7:40 AM
[2020-09-13 07:51] LABS: Calcium 8.6 mg/dl (8.5-10.1); Creatinine Clr Calc Pharmacy 130.9 ml/min; Est GFR (African American) 117.5; Est GFR (Non-African American) 101.3
[2020-09-13] MEDS ORDERED: INFLUENZA ADMINISTRATION CHARGE ONE (08:00)
[2020-09-13] MEDS ORDERED: INFLUENZA VIRUS QUAD VACCINE 0.5 ML SYR IM ONE (08:00)
[2020-09-13] MEDS: hydrOXYzine HCl 25 MG TAB PO PRN (09:00)
[2020-09-13] MEDS: SERTRALINE HCL 50 MG TABLET PO SCH (09:00)
[2020-09-13] MEDS: CHOLESTYRAMINE LIGHT 4 GM PKT PO SCH ×2 (09:00→23:30)
[2020-09-13] MEDS: FLUTICASONE FUROATE 200MCG 14 PUFFS/INHALER INH SCH (09:00)
[2020-09-13] MEDS: predniSONE 20 MG TAB PO SCH (09:00)
[2020-09-13] MEDS: NYSTATIN POWDER 15GM BTL EXT SCH ×2 (09:01→23:30)
[2020-09-13] MEDS: DOXYCYCLINE HYCLATE 100 MG in DEXTROSE 5% 100 ML IV SCH ×2 (09:01→23:28)
[2020-09-13] MEDS: SODIUM CHLORIDE 0.9% 1000ML 1,000 ML IV SCH ×2 (09:03→23:05)
[2020-09-13] MEDS: PIPERACILLIN/TAZOBACTAM 4.5 GM in DEXTROSE 5% 100 ML IV SCH (14:52)
[2020-09-13] MEDS ORDERED: WARFARIN SOD 10 MG TAB PO SCH (16:00)
[2020-09-13] MEDS: ALBUTEROL HFA 8 GM INHALER INH SCH ×3 (17:01→20:04)
--- NOTE | 2020-09-13 17:29 | Consultation Report ---
DATE OF CONSULTATION: 09/13/2020 REASON FOR CONSULTATION: Query acute on chronic stroke. The patient in the chart serve as the chief historians. HISTORY OF PRESENT ILLNESS: The patient is a 60-year-old with a past medical history of hypothyroidism, COPD, obstructive sleep apnea oxygen dependent, idiopathic cardiomyopathy, history of patent foramen ovale, multiple strokes on Coumadin (compliance is not known to this examiner), morbid obesity, narcotic addiction, questionable von Willebrand disease, history of depression, ongoing smoking, generalized anxiety. The patient lives with grandchildren and has caregivers. According to the patient, she has not had a caregiver for the last week or so. She was brought in because of questionable mental status changes. The patient reports that she was mildly confused as to what the day of the week was. She has noted some soreness of the abdomen and cough. She denies any new unilateral weakness or numbness. She has no history of seizure. Denies any uncontrolled jerking. She describes her baseline as living alone in the home with her grandchildren ambulating without the use of a walker. She has been depressed since her of cancer in March and does not regularly take her medications. She denies any difficulty with swallowing. No headache. She has not otherwise recently been ill other than the cough. She has not had any head or neck injury. She was recently treated with azithromycin for cough. The patient indicates that she has had a stroke. She is a poor historian. She indicates the stroke has affected the left body. She indicates that she has received TPA on one occasion, none of which are not any recent. REVIEW OF SYSTEMS: Notable for the absence of fever, but feeling cold. No chest pain, ongoing shortness of breath, nausea, vomiting, abdominal pain. She has chronic diarrhea. No swelling is noted in the legs. ALLERGIES: SAID TO BE ASPIRIN AND SALICYLATES. PAST MEDICAL HISTORY: As above. The patient is said to have a PFO. She has no history of DVT, PE or cancer. PAST SURGICAL HISTORY: Colonoscopy with biopsy, EGD, laparoscopic inguinal hernia repair, cholecystectomy, total hysterectomy. HOME MEDICATIONS: Robitussin, Coumadin, Remeron, Ativan, Zoloft, hydroxyzine, Zofran, albuterol, Flovent, cholestyramine, Tylenol, DuoNeb and O2 via 4 liters. FAMILY HISTORY: Patient indicates a family history of her father having a stroke in his 50s. Father also had asthma, heart disease, schizophrenia. Mother hepatitis, COPD. Sister MR and epilepsy. One sister from sleep apnea. SOCIAL HISTORY: The patient currently lives alone. Smokes half pack per day. No alcohol use, no drug use. REVIEW OF SYSTEMS: As per HPI. CT of the head, which I have reviewed, shows a left frontoparietal cortical infarction, query age indeterminate 6 mm left pontine infarction. There is an air fluid level within the right maxillary sinus suggestive of sinusitis. There is air fluid in the sphenoid. Chest x-ray notable for possible pulmonary vascular congestion, basilar opacity, statistically atelectatic mild right hilar prominence, likely vascular. Electrocardiogram on admission, normal sinus rhythm, nonspecific ST-T wave abnormality, abnormal EKG. Echocardiogram, LV is normal size, mild concentric left ventricular hypertrophy, EF 55-60%, grade 1 diastolic dysfunction, no significant valvular heart disease. Imaging quality was insufficient to allow for agitated saline contrast injection. Great vessels were unremarkable. LABORATORY DATA: On admission, white count was 14, H and H normal, platelet count 435, neutrophils 11.3. Coags are normal. INR is 1. Sodium 135, potassium 2.9, CO2 34, BUN and creatinine 15/0.55. Blood sugar 139, AST 50, ALT 94, alkaline phosphatase 203, CK 487. TSH 0.28, free T4 normal. Urinalysis notable for trace blood, positive nitrites, 1+ leukocyte esterase, 5-10 white cells, 20-30 epithelial cells and 4+ bacteria. Tox screen is negative. COVID screen is negative. The patient was clinically thought to have a panniculitis and urinary tract infection. PHYSICAL EXAMINATION: VITAL SIGNS: 124/97, 92, 36.9, O2 sat 90% on 4 liters. GENERAL: The patient is awake and alert, admits that she is mildly confused, appears to be in no distress. She is oriented x3. There is no right/left confusion. Naming and repetitions are normal. She follows 2/3 step commands. She may be mildly distractible. Memory is 0/3 at 3 minutes. NECK: There are no carotid bruits, although it is difficult to determine as the patient has fairly significant expiratory wheezing. HEART: Regular rate and rhythm. NEUROLOGIC: Pupils are postsurgical. Had difficulty visualizing the optic nerves. Hutchins were full, motility normal, normal facial sensation. Mild flattening of the left nasolabial fold. Speech is nondysarthric. Tongue is midline. Normal bulk and tone. Upper extremity strength appeared essentially symmetric. There was no drift. Rapid alternating movements may have been minimally decreased on the left. Lower extremities are about 3+/5. No asymmetric weakness was noted. Zzfhux-yz-hbuk is tremulous. Awib-qp-iwbk is normal. Reflexes are brisk. Ankle jerks are absent. Toes are downgoing. Sensation is symmetric to light touch. IMPRESSION: This patient has a history of multiple reported strokes and is on Coumadin because of a patent foramen ovale. The bulk of her workup for stroke is unknown to this examiner. She certainly may have been mildly confused related to infection and metabolic abnormalities. I agree that an MRI of the brain should help determine whether or not there is a new infarction. Carotid ultrasound is ordered as well and not reasonable. There is nothing by history to suggest that the patient had a seizure. Would recommend checking ammonia level given elevated transaminases. Regarding this patient's history of stroke and anticoagulation status, it is difficult to comment not knowing her history. I would recommend that she see her treating neurologist in followup. I assume she has had venous Dopplers of the lower extremity and workup for hypercoagulable state. A referral for PFO closure would only occur in the setting if the patient failed Coumadin, was not thought to be an anticoagulation candidate and had multiple strokes or transient ischemic attacks potentially attributable to her patent foramen ovale. Again, I do not know the answers to these questions. Provided the MRI showed no acute infarction, I would not have any objection to the use of heparin in this patient as is typical, I would recommend against a heparin bolus unless there was a strong indication for doing the same. We will follow with you. CHERIE
--- NOTE | 2020-09-13 18:18 | Communication Note ---
Date of Service: September 13, 2020 Pt seen around 1220. Son Ed visiting and requesting update. Patient admitted early this morning. Presented to ED with confusion. Being evaluated for possible UTI and cellulitis. Also has a cough- SARS-CoV-[address] showed apparent pontine stroke- age-indeterminate. MRI pending. Ed would like updates by phone: [phone] Re: VTE prophylaxis History of VTE + embolic strokes. Prescribed warfarin therapy, but INR subtherapeutic. Consider IV heparin or SQ enoxaparin while warfarin is being adjusted, but will wait for MRI results. Consider SCD's, but best to check venous duplex of lower extremities first to rule out DVT.
[2020-09-13] MEDS: LORazepam 0.5 MG TAB PO PRN (18:45)
--- NOTE | 2020-09-13 19:23 | Electrocardiogram Report ---
Test Reason : Blood Pressure : / mmHG Vent. Rate : 078 BPM Atrial Rate : 078 BPM P-R Int : 146 ms QRS Dur : 086 ms QT Int : 398 ms P-R-T Axes : 033 007 028 degrees QTc Int : 453 ms Normal sinus rhythm Nonspecific ST abnormality Abnormal ECG When compared with ECG of 30-JAN-2016 07:34, No significant change was found Confirmed by Live Warren ([id number]) on 09/13/2020 7:23:39 PM Referred By: REFERRED SELF Confirmed By:Live Warren
[2020-09-13] MEDS ORDERED: GADOBUTROL 65ML VIAL IV ONE (21:36)
--- NOTE | 2020-09-13 21:49 | Magnetic Resonance Report ---
MR brain wo/w con HISTORY: 60 years-old Female cva acute strokelike symptoms COMPARISON: Head CT 09/12/2020, brain MRI 04/07/2015. TECHNIQUE: Multiplanar multisequence MRI of the brain was obtained both with and without the use of 1 1.0 mL Gadavist FINDINGS: [employer] Inspector localizer images demonstrate no gross extracranial abnormality. Study is motion degraded. There is no restricted diffusion to suggest acute or subacute infarct. Midline structures including the co rpus callosum, brainstem, optic chiasm, pituitary and pineal glands appear unremarkable on the sagitt al T1 series. No cerebellar tonsillar herniation. Degenerative changes are noted involving the imaged cervical spine. No acute intracranial hemorrhage, midline shift, abnormal extra-axial collection, hydrocephalus or in tracranial mass. There is no pathologic blooming artifact on the T2 star series. No abnormal intra-ax ial or extra-axial enhancement. Encephalomalacia with gliosis involves remote infarcts of the bilater al frontal lobes and left insular cortex. Mild patchy T2/FLAIR hyperintensities throughout the white matter suggestive chronic microvascular ischemic disease. Cerebral venous sinuses and major arterial flow voids at the level the skull base appear patent. Mastoid air cells are clear. There is moderate to severe opacification of the right maxillary sinus with air-fluid level. Moderate mucosal thickenin g of the sphenoid sinuses. Prior bilateral lens replacement. Skull and soft tissues are unremarkable. IMPRESSION: 1. No acute intracranial abnormality, specifically there is no acute or subacute infarct. 2. Encephalomalacia and gliosis related to remote infarcts of the bilateral frontal lobes and left in sular cortex. 3. Paranasal sinus disease as above with right maxillary sinus air-fluid level suggestive of acute si nusitis. 4. No abnormal enhancement. ACT 112: Negative or not required by law. The above report was generated using voice recognition software. It may contain grammatical, syntax o r spelling errors. Electronically signed by: Lucien Peters M.D. 09/13/2020 9:48 PM
--- NOTE | 2020-09-13 22:54 | Ultrasound Report ---
BILATERAL LOWER EXTREMITY VENOUS DOPPLER HISTORY: Acute pain and swelling of the bilateral lower extremities leg swelling, history of DVT COMPARISON STUDY: Duplex venous Doppler 03/11/2015 FINDINGS: There is normal compressibility, flow, and augmentation within the bilateral lower extremit y deep venous systems. IMPRESSION: No DVT within the right or left lower extremity. ACT 112: Negative or not required by law. Electronically signed by: Lucien Peters M.D. 09/13/2020 10:53 PM
--- NOTE | 2020-09-13 22:56 | Ultrasound Report ---
US carotid doppler BI CLINICAL HISTORY: 60 years-old Female with cva. Acute strokelike symptoms COMPARISON: Carotid Doppler 04/02/2015 TECHNIQUE: Multiple real time sonographic images of the carotid bifurcations were obtained assessing fleming scale, color Doppler and spectral wave form appearance FINDINGS: RIGHT CAROTID: The peak systolic velocity within the right ICA is measured at72 cm/sec. The end fran stolic velocity measured 22 cm/sec. The ICA to CCA ratio measured 0.88 which correlates with a steno sis of 0-50%. Mild to moderate calcified plaque. LEFT CAROTID: The peak systolic velocity within the left ICA is measured at66 cm/sec. The end diast olic velocity measured 22 cm/sec. The ICA to CCA ratio measured 0.73 which correlates with a stenosis of 0-50%. Mild to moderate calcified plaque. There is normal antegrade vertebral flow bilaterally. IMPRESSION: 1. Mild to moderate calcified plaque of the bilateral carotid arteries without hemodynamically signi ficant stenosis.. 2. Normal antegrade vertebral flow bilaterally. ACT 112: Negative or not required by law. The above report was generated using voice recognition software. It may contain grammatical, syntax o r spelling errors. Electronically signed by: Lucien Peters M.D. 09/13/2020 10:55 PM
[2020-09-13] MEDS: ENOXAPARIN 100 MG/1ML SYR SQ SCH (23:29)
[2020-09-14] MEDS: MIRTAZAPINE TAB 15 MG TAB PO SCH ×2 (01:36→20:38)
[2020-09-14] MEDS: PIPERACILLIN/TAZOBACTAM 4.5 GM in DEXTROSE 5% 100 ML IV SCH ×3 (01:36→16:09)
[2020-09-14] MEDS ORDERED: guaiFENesin 600 MG TABCR PO STA (01:46)
[2020-09-14] MEDS: SODIUM CHLORIDE 0.9% 1000ML 1,000 ML IV SCH ×2 (02:42→12:54)
[2020-09-14 06:27] LABS: Basophils # (auto) 0.01 K/uL (0-0.2); Basophils % (auto) 0.1 %; Eosinophils # (auto) 0.01 K/uL (0-0.5); Eosinophils % (auto) 0.1 %; Hematocrit (blood only) 38.8 % (37-47); Hemoglobin 12.3 g/dL (12.0-16.0); Immature Granulocytes # (auto) 0.05 K/uL (0.00-0.02); Immature Granulocytes % (auto) 0.4 %; Lymphocytes % (auto) 15.3 %; Mean Corpuscular Hemoglobin 31.5 pg (25-34); Mean Corpuscular Hgb Conc 31.7 g/dL (32-36); Mean Corpuscular Volume 99.2 fL (80-100); Mean Platelet Volume 8.5 fL (7.4-10.4); Monocytes # (auto) 1.54 K/uL (0.11-0.59); Monocytes % (auto) 11.8 %; Neutrophils # (auto) 9.47 K/uL (1.4-6.5); Neutrophils % (auto) 72.3 %; Platelet Count 364 K/uL (130-400); RDW Coefficient of Variation 14.9 % (11.5-14.5); RDW Standard Deviation 54.2 fL (36.4-46.3); Red Blood Count 3.91 M/uL (4.2-5.4); White Blood Count 13.08 K/uL (4.8-10.8)
[2020-09-14 06:38] LABS: INR 1.2 (0.9-1.1); Prothrombin Time 12.5 Seconds (9.0-12.0)
[2020-09-14 06:57] LABS: Estimated Average Glucose 108 mg/dl; Hemoglobin A1C 5.4 % (4.5-5.6)
[2020-09-14 06:59] LABS: Albumin Level 2.5 gm/dl (3.4-5.0); BUN Creatinine Ratio 11.9 (10-20); Bilirubin Direct 0.1 mg/dl (0-0.2); Calcium 8.2 mg/dl (8.5-10.1); Creatinine Clr Calc Pharmacy 117.4 ml/min; Est GFR (African American) 113.6; Potassium 3.2 mmol/L (3.5-5.1)
[2020-09-14 07:10] LABS: Bilirubin,Total 0.4 mg/dl (0.2-1); Total Protein 6.1 gm/dl (6.4-8.2)
[2020-09-14] MEDS: ALBUTEROL HFA 8 GM INHALER INH SCH ×4 (07:34→19:47)
[2020-09-14] MEDS ORDERED: POTASSIUM CHLORIDE CRTAB 20 MEQ TABCR PO ONE (07:48)
[2020-09-14] MEDS: predniSONE 20 MG TAB PO SCH (08:24)
[2020-09-14] MEDS: guaiFENesin 600 MG TABCR PO SCH ×2 (08:25→20:38)
[2020-09-14] MEDS: SERTRALINE HCL 50 MG TABLET PO SCH (08:25)
[2020-09-14] MEDS: hydrOXYzine HCl 25 MG TAB PO PRN (08:25)
[2020-09-14] MEDS: NYSTATIN POWDER 15GM BTL EXT SCH ×2 (08:26→20:38)
[2020-09-14] MEDS: DOXYCYCLINE HYCLATE 100 MG in DEXTROSE 5% 100 ML IV SCH ×2 (08:27→20:37)
[2020-09-14] MEDS: FLUTICASONE FUROATE 200MCG 14 PUFFS/INHALER INH SCH (08:30)
[2020-09-14] MEDS: ENOXAPARIN 100 MG/1ML SYR SQ SCH ×2 (10:24→20:39)
[2020-09-14] MEDS: CHOLESTYRAMINE LIGHT 4 GM PKT PO SCH ×2 (10:25→20:39)
--- NOTE | 2020-09-14 10:52 | Progress Notes ---
DATE: 09/14/2020 INTERIM REPORT I have reviewed the patient's chart, MRI of the brain and carotid ultrasound. There is no evidence of a new infarction. My clinical impression is that the patient had a change in mental status related to metabolic and infectious etiologies. There is no evidence of a new infarction. I recommend that the patient follow up with her neurologist post-discharge. We will sign off. Please contact me if there are any further questions.
[2020-09-14] MEDS: LORazepam 0.5 MG TAB PO PRN (15:11)
[2020-09-14] MEDS ORDERED: WARFARIN SOD 7.5 MG TAB PO SCH (16:00)
--- NOTE | 2020-09-14 19:07 | Hospitalist Progress Note ---
Date of Service September 14, 2020 Assessment & Plan (1) Altered mental status: Tox screen negative. No acute cerebrovascular events per MRI. Probable toxic / metabolic encephalopathy secondary to infection. (2) Bronchitis: No definite infiltrates on chest x-ray. SARS-CoV-2 PCR negative. Continue doxycycline. (3) Sinusitis: Right maxillary sinusitis noted on MRI. Continue doxycycline and piperacillin / tazobactam. (4) COPD with exacerbation: Continue steroids and bronchodilators. (5) UTI (urinary tract infection): Continue piperacillin / tazobactam pending urine C&S results. (6) Abdominal wall cellulitis: Continue doxycycline and piperacillin / tazobactam. (7) Atrial fibrillation: History of PAF. Currently in sinus rhythm with PVC's. Continue anticoagulation. (8) Cerebrovascular disease: History of embolic strokes. Underlying PAF and PFO. CT showed old strokes and possible pontine stroke new since 2017. Pontine stroke was not confirmed on MRI. Maintain anticoagulation. (9) Chronic respiratory failure: Chronic hypoxic respiratory failure due to COPD. Continue supplemental O2. (10) Hypokalemia: Replace. Follow. (11) Anxiety and depression: Continue usual meds. (12) DVT prophylaxis: Receiving SQ enoxaparin while warfarin is being adjusted. (13) Discharge planning issues: Discharge disposition to be determined. Family Medicine follow-up with Dr. Alexandra. Admission and Anticipated Discharge Date Admission Date: September 13, 2020 Subjective Recheck for altered mental status and other problems. Patient seen in their room around 1030. Still anxious and confused. No fever. Persistent cough, sometimes congested. No chest pain. No nausea, vomiting, diarrhea. Urinary incontinence, no dysuria. Review of Systems: as noted above Physical Exam Constitutional: no acute distress Eyes: + anicteric sclerae Respiratory: no respiratory distress Auscultation: + rhonchi and + wheezes Cardiovascular: Rate/Rhythm: regular rate and regular rhythm Vessels: no JVD Extremities: + edema (1-2+ pretibial); no calf tenderness Gastrointestinal (Abdomen): normal bowel sounds, soft, nontender, no hepatosplenomegaly Musculoskeletal: Extremities: no cyanosis Skin: + rash (bilateral inguinal erythema) Psychiatric: Orientation: alert; + not oriented x 3 Affect: + anxious affect Results & Data Results & Data ([facility]) Vital Signs (Past 12 Hours) Vital Signs Temp Pulse Resp BP Pulse Ox 09/14/20 18:42 36.8 C 79 18 97/60 L 91 09/14/20 16:05 87 18 91 09/14/20 16:00 90 09/14/20 15:00 82 19 135/76 90 09/14/20 11:48 36.3 C L 86 20 125/66 91 09/14/20 11:36 98 H 20 133/65 94 09/14/20 11:05 18 98 09/14/20 07:42 36.8 C 84 20 95/65 L 90 09/14/20 07:34 84 16 97 Laboratory Results Laboratory Results - last 24 hr 09/14/20 09/14/20 09/14/20 05:57 05:57 05:57 WBC 13.08 H RBC 3.91 L Hgb 12.3 Hct 38.8 MCV 99.2 MCH 31.5 MCHC 31.7 L RDW Std Deviation 54.2 H RDW Coeff of Ursula 14.9 H Plt Count 364 MPV 8.5 Immature Gran % (Auto) 0.4 Neut % (Auto) 72.3 Lymph % (Auto) 15.3 [place] % (Auto) 11.8 Eos % (Auto) 0.1 Baso % (Auto) 0.1 Neut # (Auto) 9.47 H Lymph # (Auto) 2.00 [place] # (Auto) 1.54 H Eos # (Auto) 0.01 Baso # (Auto) 0.01 Immature Gran # (Auto) 0.05 H PT 12.5 H INR 1.2 H Sodium 143 Potassium 3.2 L Chloride 105 Carbon Dioxide 34 H Anion Gap 4.0 BUN 7 Creatinine 0.62 Est Cr Clr Drug Dosing 117.4 Est GFR ( Amer) 113.6 Est GFR (Non-Af Amer) 98.0 BUN/Creatinine Ratio 11.9 Glucose 79 Estimat Average Glucose Hemoglobin A1c Calcium 8.2 L Total Bilirubin 0.4 Direct Bilirubin 0.1 AST 32 ALT 55 Alkaline Phosphatase 151 H Total Protein 6.1 L Albumin 2.5 L Triglycerides 127 Cholesterol 178 LDL Cholesterol, Calc 111 VLDL Cholesterol, Calc 25 HDL Cholesterol 42 Cholesterol/HDL Ratio 4 09/14/20 05:57 WBC RBC Hgb Hct MCV MCH MCHC RDW Std Deviation RDW Coeff of Ursula Plt Count MPV Immature Gran % (Auto) Neut % (Auto) Lymph % (Auto) [place] % (Auto) Eos % (Auto) Baso % (Auto) Neut # (Auto) Lymph # (Auto) [place] # (Auto) Eos # (Auto) Baso # (Auto) Immature Gran # (Auto) PT INR Sodium Potassium Chloride Carbon Dioxide Anion Gap BUN Creatinine Est Cr Clr Drug Dosing Est GFR ( Amer) Est GFR (Non-Af Amer) BUN/Creatinine Ratio Glucose Estimat Average Glucose 108 Hemoglobin A1c 5.4 Calcium Total Bilirubin Direct Bilirubin AST ALT Alkaline Phosphatase Total Protein Albumin Triglycerides Cholesterol LDL Cholesterol, Calc VLDL Cholesterol, Calc HDL Cholesterol Cholesterol/HDL Ratio Microbiology 09/12/20 22:50 Urine,Straight Cath Urine Culture - Preliminary Gram negative bacilli
[2020-09-15] MEDS: SODIUM CHLORIDE 0.9% 1000ML 1,000 ML IV SCH ×2 (00:28→20:34)
[2020-09-15] MEDS: PIPERACILLIN/TAZOBACTAM 4.5 GM in DEXTROSE 5% 100 ML IV SCH ×4 (01:00→23:54)
[2020-09-15 06:58] LABS: Basophils # (auto) 0.02 K/uL (0-0.2); Basophils % (auto) 0.2 %; Eosinophils # (auto) 0.02 K/uL (0-0.5); Eosinophils % (auto) 0.2 %; Hematocrit (blood only) 37.7 % (37-47); Hemoglobin 11.7 g/dL (12.0-16.0); Immature Granulocytes # (auto) 0.03 K/uL (0.00-0.02); Immature Granulocytes % (auto) 0.2 %; Lymphocytes # (auto) 2.73 K/uL (1.2-3.4); Lymphocytes % (auto) 21.9 %; Mean Corpuscular Hemoglobin 31.2 pg (25-34); Mean Corpuscular Volume 100.5 fL (80-100); Mean Platelet Volume 8.9 fL (7.4-10.4); Monocytes # (auto) 1.34 K/uL (0.11-0.59); Monocytes % (auto) 10.8 %; Neutrophils % (auto) 66.7 %; Platelet Count 422 K/uL (130-400); RDW Coefficient of Variation 15.2 % (11.5-14.5); RDW Standard Deviation 55.9 fL (36.4-46.3); Red Blood Count 3.75 M/uL (4.2-5.4); White Blood Count 12.44 K/uL (4.8-10.8)
[2020-09-15 07:15] LABS: INR 3.9 (0.9-1.1); Prothrombin Time 38.6 Seconds (9.0-12.0)
[2020-09-15 07:20] LABS: Calcium 8.3 mg/dl (8.5-10.1); Creatinine Clr Calc Pharmacy 133.1 ml/min; Est GFR (African American) 118.2; Est GFR (Non-African American) 101.9; Potassium 3.2 mmol/L (3.5-5.1)
[2020-09-15] MEDS ORDERED: POTASSIUM CHLORIDE CRTAB 20 MEQ TABCR PO ONE ×2 (07:35→18:02)
[2020-09-15] MEDS: ALBUTEROL HFA 8 GM INHALER INH SCH ×4 (07:42→19:24)
[2020-09-15] MEDS: predniSONE 20 MG TAB PO SCH (08:20)
[2020-09-15] MEDS: guaiFENesin 600 MG TABCR PO SCH ×2 (08:20→20:37)
[2020-09-15] MEDS: DOXYCYCLINE HYCLATE 100 MG in DEXTROSE 5% 100 ML IV SCH ×2 (08:20→20:32)
[2020-09-15] MEDS: SERTRALINE HCL 50 MG TABLET PO SCH (08:21)
[2020-09-15] MEDS: NYSTATIN POWDER 15GM BTL EXT SCH ×2 (08:21→20:36)
[2020-09-15] MEDS: FLUTICASONE FUROATE 200MCG 14 PUFFS/INHALER INH SCH (08:21)
[2020-09-15] MEDS: LORazepam 0.5 MG TAB PO PRN ×2 (08:26→15:59)
[2020-09-15] MEDS: CHOLESTYRAMINE LIGHT 4 GM PKT PO SCH ×2 (10:56→23:47)
--- NOTE | 2020-09-15 17:57 | Hospitalist Progress Note ---
Date of Service September 15, 2020 Assessment & Plan (1) Altered mental status: Tox screen negative. No acute cerebrovascular events per MRI. Probable toxic / metabolic encephalopathy secondary to infection. (2) Bronchitis: No definite infiltrates on chest x-ray. SARS-CoV-2 PCR negative. Continue doxycycline and piperacillin / tazobactam. (3) Sinusitis: Right maxillary sinusitis noted on MRI. Continue doxycycline and piperacillin / tazobactam. (4) COPD with exacerbation: Continue steroids and bronchodilators. (5) UTI (urinary tract infection): Urine culture- Klebsiella pneumoniae, pansensitive. Continue piperacillin / tazobactam to cover other apparent sites of infection. (6) Abdominal wall cellulitis: Continue doxycycline and piperacillin / tazobactam. (7) Atrial fibrillation: History of PAF. Currently in sinus rhythm with PVC's. Continue anticoagulation. (8) Cerebrovascular disease: History of embolic strokes. Underlying PAF and PFO. CT showed old strokes and possible pontine stroke new since 2017. Pontine stroke was not confirmed on MRI. Maintain anticoagulation. Patient not a candidate for DOAC's because of weight / BMI. INR's have historically been difficult to maintain in therapeutic range. INR was 1.0 day of admission; quickly letty to 3.9 after just 2 doses of her previous regimen. Continue to monitor INR's closely and titrate warfarin dosing. (9) Chronic respiratory failure: Chronic hypoxic respiratory failure due to COPD. Continue supplemental O2. (10) Hypokalemia: Replace. Follow. (11) Anxiety and depression: Continue usual meds. (12) Morbid obesity: Wt 115 kg. BMI 45. Heart healthy diet. (13) DVT prophylaxis: Receiving SQ enoxaparin while warfarin is being adjusted. (14) Discharge planning issues: Discharge disposition to be determined. Family Medicine follow-up with Dr. Alexandra. Son Ed given update by phone. He would like Case Management to contact him regarding support services at home. Admission and Anticipated Discharge Date Admission Date: September 13, 2020 Subjective Recheck for altered mental status and other problems. Patient seen in their room around 0930. No fever. Persistent cough and wheezing. No chest pain. No nausea, vomiting, diarrhea. Urinary incontinence without dysuria. Complains of dry mouth and dry lips. Anxious. Still somewhat confused and worried about things that she does not recall from last week. Review of Systems: as noted above Physical Exam Constitutional: no acute distress Eyes: + anicteric sclerae Respiratory: no respiratory distress Auscultation: + rhonchi and + wheezes Cardiovascular: Rate/Rhythm: regular rate and regular rhythm Vessels: no JVD Extremities: + edema (2+ pretibial); no calf tenderness Gastrointestinal (Abdomen): normal bowel sounds, soft, nontender, no hep atosplenomegaly Musculoskeletal: Extremities: + extremities abnormal to inspection (contusion right knee) and no cyanosis Skin: + rash (bilateral inguinal erythema, erythema less intense) Psychiatric: Orientation: alert; + not oriented x 3 Affect: + anxious affect Results & Data Results & Data ([facility]) Vital Signs (Past 12 Hours) Vital Signs Temp Pulse Resp BP Pulse Ox 09/15/20 15:51 36.8 C 76 18 124/62 90 09/15/20 14:58 76 18 92 09/15/20 11:08 36.8 C 78 20 125/75 91 09/15/20 11:01 76 16 92 09/15/20 07:42 84 20 92 09/15/20 07:31 36.8 C 83 19 135/76 91 Laboratory Results Laboratory Results - last 24 hr 09/15/20 09/15/20 09/15/20 06:07 06:07 06:07 WBC 12.44 H RBC 3.75 L Hgb 11.7 L Hct 37.7 MCV 100.5 H MCH 31.2 MCHC 31.0 L RDW Std Deviation 55.9 H RDW Coeff of Ursula 15.2 H Plt Count 422 H MPV 8.9 Immature Gran % (Auto) 0.2 Neut % (Auto) 66.7 Lymph % (Auto) 21.9 [place] % (Auto) 10.8 Eos % (Auto) 0.2 Baso % (Auto) 0.2 Neut # (Auto) 8.30 H Lymph # (Auto) 2.73 [place] # (Auto) 1.34 H Eos # (Auto) 0.02 Baso # (Auto) 0.02 Immature Gran # (Auto) 0.03 H PT 38.6 H INR 3.9 H Sodium 143 Potassium 3.2 L Chloride 107 Carbon Dioxide 33 H Anion Gap 3.0 BUN 10 Creatinine 0.55 L Est Cr Clr Drug Dosing 133.1 Est GFR ( Amer) 118.2 Est GFR (Non-Af Amer) 101.9 BUN/Creatinine Ratio 18.0 Glucose 77 Calcium 8.3 L
[2020-09-15] MEDS: MIRTAZAPINE TAB 15 MG TAB PO SCH (20:37)
[2020-09-15] MEDS ORDERED: Nursing to Pharmacy Communication SCH (23:15)
[2020-09-16 06:50] LABS: Basophils # (auto) 0.01 K/uL (0-0.2); Basophils % (auto) 0.1 %; Eosinophils # (auto) 0.03 K/uL (0-0.5); Eosinophils % (auto) 0.2 %; Hematocrit (blood only) 37.8 % (37-47); Hemoglobin 11.9 g/dL (12.0-16.0); Immature Granulocytes # (auto) 0.02 K/uL (0.00-0.02); Immature Granulocytes % (auto) 0.2 %; Lymphocytes # (auto) 2.71 K/uL (1.2-3.4); Lymphocytes % (auto) 21.5 %; Mean Corpuscular Hemoglobin 31.4 pg (25-34); Mean Corpuscular Hgb Conc 31.5 g/dL (32-36); Mean Corpuscular Volume 99.7 fL (80-100); Mean Platelet Volume 8.6 fL (7.4-10.4); Monocytes % (auto) 11.1 %; Neutrophils # (auto) 8.42 K/uL (1.4-6.5); Neutrophils % (auto) 66.9 %; Platelet Count 375 K/uL (130-400); RDW Coefficient of Variation 15.2 % (11.5-14.5); RDW Standard Deviation 55.4 fL (36.4-46.3); Red Blood Count 3.79 M/uL (4.2-5.4); White Blood Count 12.59 K/uL (4.8-10.8)
[2020-09-16 07:07] LABS: INR 4.4 (0.9-1.1); Prothrombin Time 43.1 Seconds (9.0-12.0)
[2020-09-16 07:19] LABS: BUN Creatinine Ratio 17.2 (10-20); Creatinine Clr Calc Pharmacy 136.1 ml/min; Est GFR (African American) 118.9; Est GFR (Non-African American) 102.6; Potassium 3.4 mmol/L (3.5-5.1)
[2020-09-16] MEDS: ALBUTEROL HFA 8 GM INHALER INH SCH ×4 (07:47→19:52)
[2020-09-16] MEDS: DOXYCYCLINE HYCLATE 100 MG in DEXTROSE 5% 100 ML IV SCH ×2 (08:20→20:44)
[2020-09-16] MEDS: PIPERACILLIN/TAZOBACTAM 4.5 GM in DEXTROSE 5% 100 ML IV SCH ×2 (08:20→16:33)
[2020-09-16] MEDS: FLUTICASONE FUROATE 200MCG 14 PUFFS/INHALER INH SCH (08:20)
[2020-09-16] MEDS: CHOLESTYRAMINE LIGHT 4 GM PKT PO SCH ×2 (08:21→21:36)
[2020-09-16] MEDS: guaiFENesin 600 MG TABCR PO SCH ×2 (08:21→20:44)
[2020-09-16] MEDS: NYSTATIN POWDER 15GM BTL EXT SCH ×2 (08:21→20:47)
[2020-09-16] MEDS: predniSONE 20 MG TAB PO SCH (08:21)
[2020-09-16] MEDS: SERTRALINE HCL 50 MG TABLET PO SCH (08:21)
[2020-09-16] MEDS: ACETAMINOPHEN 325 MG TAB PO PRN ×3 (08:28→20:44)
[2020-09-16] MEDS: LORazepam 0.5 MG TAB PO PRN ×2 (08:28→20:44)
[2020-09-16] MEDS: SODIUM CHLORIDE 0.9% 1000ML 1,000 ML IV SCH (13:54)
[2020-09-16] MEDS: hydrOXYzine HCl 25 MG TAB PO PRN (17:32)
[2020-09-16] MEDS: MIRTAZAPINE TAB 15 MG TAB PO SCH (20:45)
--- NOTE | 2020-09-16 21:50 | Hospitalist Progress Note ---
Date of Service September 16, 2020 Assessment & Plan (1) Altered mental status: Presented to ED with confusion. Tox screen negative. No acute cerebrovascular events per MRI. Probable toxic / metabolic encephalopathy secondary to infection. Other possible contributing factors: prescribed guaifenesin with codeine 09/04 takes hydroxyzine and lorazepam chronically PRN for anxiety Severe anxiety / depression could be contributing factors as well. Now essentially oriented x 3, but still have problems with recollection of events that occurred last week. (2) Bronchitis: Presented with cough, wheezing, SOB. No definite infiltrates on chest x-ray. MRI showed sinusitis SARS-CoV-2 PCR negative. Check sputum gram stain, C&S. Probable sinobronchitis. Continue doxycycline and piperacillin / tazobactam. (3) Sinusitis: Right maxillary sinusitis noted on MRI. Continue doxycycline and piperacillin / tazobactam. (4) COPD with exacerbation: Continue steroids and bronchodilators. Discontinue steroids MARKELL. (5) UTI (urinary tract infection): Urine culture- Klebsiella pneumoniae, pansensitive. Continue piperacillin / tazobactam to cover other apparent sites of infection. (6) Abdominal wall cellulitis: Continue doxycycline and piperacillin / tazobactam. (7) Atrial fibrillation: History of PAF. Currently in sinus rhythm with PVC's. Continue anticoagulation as discussed below. (8) Cerebrovascular disease: History of embolic strokes. Underlying PAF and PFO. CT showed old strokes and possible pontine stroke new since 2017. Neurology consulted. MRI did not confirm pontine stroke or demonstrate any other acute events. Need to maintain anticoagulation with warfarin. Patient not a candidate for DOAC's because of weight / BMI. INR's have historically been difficult to maintain in therapeutic range. INR was 1.0 day of admission; quickly letty to 3.9 after just 2 doses of her previous regimen. INR today = 4.4. Continue to monitor INR's closely and titrate warfarin dosing. Change warfarin dosing to 10 mg daily starting 09/17 with hold parameters. (9) Chronic respiratory failure: Chronic hypoxic respiratory failure due to COPD. Continue supplemental O2. (10) Hypokalemia: Replace. Follow. (11) Anxiety and depression: History of anxiety and depression. Recently lost her . Takes hydroxyzine and lorazepam chronically PRN for anxiety- could be contributing factor for problems with short-term memory. Very anxious and tearful. Consult Psychiatry. (12) Morbid obesity: Wt 115 kg. BMI 45. Heart healthy diet. (13) DVT prophylaxis: Received SQ enoxaparin while warfarin was adjusted. Continue warfarin, titrate dose. (14) Discharge planning issues: Discharge disposition to be determined. May need skilled care or rehab. PT / OT evals. Family Medicine follow-up with Dr. Alexandra. Son Ed given update by phone 09/15. Admission and Anticipated Discharge Date Admission Date: September 13, 2020 Subjective Recheck for altered mental status and other problems. Patient seen in their room around 1600. No fever. Persistent cough and wheezing. No chest pain. No nausea, vomiting, diarrhea. Chronic urinary incontinence without dysuria. Anxious. Wondering why she can't remember events of last week. Review of Systems: as noted above Physical Exam Constitutional: no acute distress Eyes: + anicteric sclerae Respiratory: no respiratory distress Auscultation: + rhonchi and + wheezes Cardiovascular: Rate/Rhythm: regular rate and regular rhythm Vessels: no JVD Extremities: + edema (2+ pretibial); no calf tenderness Gastrointestinal (Abdomen): normal bowel sounds, soft, nontender, no hepatosplenomegaly Musculoskeletal: Extremities: + extremities abnormal to inspection (contusion right knee) and no cyanosis Skin: + rash (bilateral inguinal erythema, erythema less intense) Psychiatric: Orientation: alert; + not oriented x 3 (oriented to person, place, year, president, but short term memory poor) Affect: + anxious affect and + tearful affect Results & Data Results & Data ([facility]) Vital Signs (Past 12 Hours) Vital Signs Temp Pulse Pulse Resp BP Pulse Ox 09/16/20 19:52 68 18 96 09/16/20 19:00 36.7 C 76 18 110/70 90 09/16/20 16:00 78 09/16/20 15:59 36.6 C 82 18 106/65 90 09/16/20 15:08 87 20 92 09/16/20 11:17 36.9 C 89 20 121/68 96 09/16/20 11:07 77 18 96 Laboratory Results Laboratory Results - last 24 hr 09/16/20 09/16/20 09/16/20 06:24 06:24 06:24 WBC 12.59 H RBC 3.79 L Hgb 11.9 L Hct 37.8 MCV 99.7 MCH 31.4 MCHC 31.5 L RDW Std Deviation 55.4 H RDW Coeff of Ursula 15.2 H Plt Count 375 MPV 8.6 Immature Gran % (Auto) 0.2 Neut % (Auto) 66.9 Lymph % (Auto) 21.5 [place] % (Auto) 11.1 Eos % (Auto) 0.2 Baso % (Auto) 0.1 Neut # (Auto) 8.42 H Lymph # (Auto) 2.71 [place] # (Auto) 1.40 H Eos # (Auto) 0.03 Baso # (Auto) 0.01 Immature Gran # (Auto) 0.02 PT 43.1 H INR 4.4 H Sodium 145 Potassium 3.4 L Chloride 110 H Carbon Dioxide 33 H Anion Gap 2.0 L BUN 9 Creatinine 0.54 L Est Cr Clr Drug Dosing 136.1 Est GFR ( Amer) 118.9 Est GFR (Non-Af Amer) 102.6 BUN/Creatinine Ratio 17.2 Glucose 66 L Calcium 8.0 L
[2020-09-17] MEDS: SODIUM CHLORIDE 0.9% 1000ML 1,000 ML IV SCH ×4 (00:29→23:17)
[2020-09-17] MEDS: PIPERACILLIN/TAZOBACTAM 4.5 GM in DEXTROSE 5% 100 ML IV SCH ×3 (00:30→16:13)
[2020-09-17] MEDS: ALBUTEROL HFA 8 GM INHALER INH SCH ×4 (06:59→19:09)
[2020-09-17] MEDS: guaiFENesin 600 MG TABCR PO SCH ×2 (07:20→20:58)
[2020-09-17] MEDS: POTASSIUM CHLORIDE CRTAB 20 MEQ TABCR PO SCH (07:20)
[2020-09-17] MEDS: SERTRALINE HCL 50 MG TABLET PO SCH (07:20)
[2020-09-17] MEDS: NYSTATIN POWDER 15GM BTL EXT SCH ×2 (07:20→20:57)
[2020-09-17] MEDS: LORazepam 0.5 MG TAB PO PRN ×2 (07:20→16:12)
[2020-09-17] MEDS: predniSONE 20 MG TAB PO SCH (07:20)
[2020-09-17] MEDS: DOXYCYCLINE HYCLATE 100 MG in DEXTROSE 5% 100 ML IV SCH ×2 (07:20→20:10)
[2020-09-17] MEDS: FLUTICASONE FUROATE 200MCG 14 PUFFS/INHALER INH SCH (07:21)
[2020-09-17] MEDS ORDERED: POTASSIUM CHLORIDE CRTAB 20 MEQ TABCR PO ONE (08:01)
[2020-09-17 08:39] LABS: Hematocrit (blood only) 36.7 % (37-47); Hemoglobin 11.6 g/dL (12.0-16.0); INR 3.2 (0.9-1.1); Mean Corpuscular Hemoglobin 31.2 pg (25-34); Mean Corpuscular Hgb Conc 31.6 g/dL (32-36); Mean Corpuscular Volume 98.7 fL (80-100); Mean Platelet Volume 8.9 fL (7.4-10.4); Platelet Count 400 K/uL (130-400); Prothrombin Time 31.5 Seconds (9.0-12.0); RDW Coefficient of Variation 14.9 % (11.5-14.5); RDW Standard Deviation 54.4 fL (36.4-46.3); Red Blood Count 3.72 M/uL (4.2-5.4); White Blood Count 11.51 K/uL (4.8-10.8)
[2020-09-17 09:08] LABS: BUN Creatinine Ratio 28.5 (10-20); Calcium 8.3 mg/dl (8.5-10.1); Creatinine Clr Calc Pharmacy 126.9 ml/min; Est GFR (African American) 116.1; Est GFR (Non-African American) 100.2; Potassium 3.5 mmol/L (3.5-5.1)
[2020-09-17] MEDS: CHOLESTYRAMINE LIGHT 4 GM PKT PO SCH ×2 (09:33→20:58)
[2020-09-17] MEDS: hydrOXYzine HCl 25 MG TAB PO PRN ×2 (13:31→20:58)
--- NOTE | 2020-09-17 13:38 | Psychiatric Consultation ---
Date of Consultation September 17, 2020 Impression / Recommendations Impression Dr. Brianna Nickerson was directly involved in review and discussion of the patient's case and participated in medical decision making regarding treatment recommendations. RECOMMENDATIONS: 09/17 - Psychiatric consultation requested to evaluate patient for anxiety and depression. It is reported that patient's psychotropic medications are managed by Dr. Lilly through [facility]. - It seems that acute anxiety is likely related to patient's reports of confusion and difficulty remembering the first few days of her hospitalization or events leading up to her admission. She does have a history of depression and anxiety, and is working with a psychiatrist on an outpatient basis. External medication history shows some recent medication changes, and it would be beneficial to get some additional information on these. - Given recent confusion and encephalopathy, most acute recommendations would be to reduce polypharmacy and limit the use of any delirogenic medications. As patient admits she is not consistent with the mirtazapine, we will take the liberty of discontinuing it from her medication list and utilize only one antidepressant medication at this time. Would also advise encouraging behavioral strategies to reduce anxiety while in the hospital and limiting use of as needed medications for anxiety - many of which can contribute to confusion. Additionally, the patient does have a history of benzodiazepine abuse and utilization of lorazepam and other controlled medications should be very closely monitored, or ideally not continued. Pt may require full discontinuation of lorazepam be completed gradually on an outpatient basis. - We will request records from the patient's outpatient psychiatrist to gather additional information. It would also be helpful to gather information regarding who assists with organizing the patient's medications or ensure compliance. - We will continue to gather this information and will offer any additional recommendations as available. AT this time, there is no criteria for inpatient psychiatric treatment - we will attempt to facilitate earlier appointment with her outpatient psychiatric team for additional medication adjustments as indicated. Please reach out to our service with any additional questions or updates in the interim. Psych History Identifying Data 60-year-old female admitted medically on 09/13/2020 after presenting to the ED with altered mental status. Psychiatric consultation was requested by our spitalist service to evaluate patient for anxiety and depression. Chief Complaint "I lost like 5 days." History of Present Illness Kimberly Kendall is a 60-year-old female admitted medically on 09/13/2020 after presenting to the ED with altered mental status. There is question the altered state may have been related to encephalopathy related to UTI, panniculitis, and sinusitis. Psychiatric consultation has been requested to evaluate patient for anxiety and depression. Pt follows with Dr. Lilly for psychotropic medication management. Records have been requested to gather additional information regarding the patient's psychiatric history. Pt is superficially cooperative with psychiatric assessment. She states "I lost like 5 days. I don't even know why I'm here. What is happening?" The patient states her last clear memory was having a drink at a wedding, which occurred on 09/07/2020. She admits events in the last week are not clear, and she does not recall how she came to be in the hospital. This is clearly upsetting to the patient, as she becomes visibly more anxious as more questions are asked of her. The patient is not able to clearly provide any information regarding medication compliance prior to her admission or any other history that may be beneficial. The patient does admit that she had not been taking mirtazapine, as she believes it had been giving her nightmares. Pt is not able to answer questions regarding how frequently she remembers to take sertraline or how often she is requiring prn medications for anxiety. Pt states that she had been doing well prior to the wedding with regard to her anxiety. She does feel she has been "majorly depressed" since 03/2020 when her of cancer. She admits to episodes of hopelessness and poor concentration. Unfortunately, the patient has difficulty providing a clear timeline for any of these concerns. She admits she has not been engaged in therapy or any type of grief counseling, but is open to receiving some information on this. Pt is uncertain of what she feels would be beneficial for her at this time. Pt denies SI or acute safety concerns. She denies other needs at this time. Past Psychiatric History Current Psychiatric Diagnosis: Depression, Anxiety, Borderline personality disorder Outpatient Services: Psychiatrist - Dr. Maxx Rebollar Previous Psych Admissions: Several past psychiatric admissions - [facility]: 06/2006 - [facility]: 09/2014 (d/c'd to rehab for opiate abuse), 09/2015 History of Previous Suicide Attempt: No Past Medication Trials: Numerous past medication trials. List includes, but is not limited to: 1. Prozac 2. Gabapentin 3. Effexor 4. Cymbalta 5. Zoloft 6. Lexapro 7. BuSpar 8. Lamictal 9. Seroquel 10.Topamax 11.Risperdal 12.Abilify 13.Thorazine 14.Klonopin 15.Ambien 16.Trazodone 17.Zoloft 18.Remeron 19.Vistaril 20.Ativan Allergies Allergy/AdvReac Type Severity Reaction Status Date / Time aspirin Allergy Unknown TAKES Verified 09/12/20 23:23 COUMADIN salicylates AdvReac Unknown ?DUE TO Verified 09/12/20 23:23 COUMADIN? Home Medications Home Medications Medication Instructions Recorded Confirmed Type acetaminophen [Tylenol] 325 - 650 mg PO DIRECTED PRN 09/12/20 09/13/20 History albuterol sulfate 2.5 mg INHALATION Q4H PRN 09/12/20 09/13/20 History albuterol sulfate [ProAir HFA] 2 puff INHALATION QID 09/12/20 09/13/20 History cholestyramine-aspartame [Questran 4 g PO BID 09/12/20 09/13/20 History Light] codeine-guaifenesin 5 ml PO Q4H PRN 09/12/20 09/13/20 History fluticasone propionate [Flovent 2 puff INHALATION BID 09/12/20 09/13/20 History HFA] hydroxyzine HCl 50 mg PO TID PRN 09/12/20 09/13/20 History ipratropium-albuterol [DuoNeb] 3 ml INHALATION Q4H PRN 09/12/20 09/13/20 History lorazepam 0.5 mg PO BID PRN 09/12/20 09/13/20 History mirtazapine 30 mg PO HS 09/12/20 09/13/20 History ondansetron HCl [Zofran] 4 mg PO Q8H PRN 09/12/20 09/13/20 History sertraline 150 mg PO DAILY 09/12/20 09/13/20 History warfarin See Rx Instructions .ROUTE .COMPLEX 09/12/20 09/13/20 History Family History Reports father had schizophrenia and sister was intellectually disabled. Both mother and father reportedly struggled with alcoholism. Substance Abuse History Denies significant alcohol or tobacco use. Denies use of illicit substances. Pt does have a history of abusing benzodiazepines and pain medications per previous documentation. Personal History Living Arrangements: Home (with granddaughter and granddaughter/s boyfriend) Living Arrangements Comments: Pt states she has daily assistance from caregivers Employment Status: Disabled Marital Status: (second in 03/2020) Number Of Children: 3 children - only two sons still living, 7 grandchildren ages 16-24 Beliefs That Will Affect Care: Synagogue (Mandaeism ) History of Legal Problems: Denied Psychological Trauma History Comment: Numerous past traumatic events - daughter struggled with substance abuse and passed in 2004, son was incarcerated in 2005, first in 2004, second in 03/2020. Patient History Medical History Anxiety and depression Atrial fibrillation Cerebrovascular disease History of stroke "embolic stroke, underlying PFO" Morbid obesity Surgical History Status post cholecystectomy Status post hysterectomy Social History Smoking Status: Current every day smoker Cigarettes Per Day: 40; Second Hand Exposure: Yes; Tobacco Cessation Education Requested by Patient: No Hx Alcohol Use: No Hx Substance Use: No Preferred Language: Botswanan Communication Ability: Effective Hospice Care Transitions Coordinator Required: No Beliefs That Will Affect Care: None Current Living Situation: Family Current Living Situation Comment: Lives with Laura (granddaughter) and Cj (granddaughter's s/o) Other Information That Helps Us Care for You: No Feels Safe at Home: Yes Safety Concerns: Feels Safe At This Time Assistive Devices: Oxygen - Continuous Physical Exam Psychiatric: Orientation: alert, oriented to person and oriented to place; + not oriented to time (but also does not truly attempt, "I couldn't even tell you") Apperance: appropriately dressed, + disheveled and appeared stated age Obese-appearing female, laying in bed appearing anxious but not in acute distress. Pt is appropriately dressed in a hospital gown. Long dark hair appears clean. Pt appears somewhat unkempt. Eye Contact: + fair eye contact Motor Behavior: no abnormal motor movements (observed while laying in bed) Speech: normal rate/rhythm/volume of speech Affect: + anxious affect, + tearful affect and mood congruent with affect Mood: + depressed mood and + anxious mood Thought Process: linear/logical thought process (but admits to limited recall of events leading to hospitalization) and + concrete thought process Thought Content: reality based without delusions; no hopelessness Suicidal Thoughts: denies suicidal thoughts and denies suicidal intent Homicidal Thoughts: denies homicidal thoughts Hallucinations: no auditory hallucinations and no visual hallucinations Cognition: attention grossly intact and language grossly intact; + recent memory not intact Estimated Intelligence: consistent with education level Insight: + fair insight Judgement: + fair judgement Vital Signs (Past 24 Hours): Last Vital Signs Temp 36.8 C 09/17/20 12:00 Pulse 83 09/17/20 12:00 Resp 18 09/17/20 12:00 BP 143/84 H 09/17/20 12:00 Pulse Ox 94 09/17/20 12:00 Review of Systems Constitutional: reports confusion, disorientation and increased anxiety Cardiovascular: denied Respiratory: denied Gastrointestinal: reports abdominal pain Neurological: denied Psychiatric: denies symptoms other than stated above Total of at least 10 systems reviewed, pertinent positives as above and in HPI. Results & Data (PSY) Medications Administered Acetaminophen (Acetaminophen 325 Mg Tab) 650 mg PO Q4H PRN PRN Reason: Pain or Fever Stop: 10/13/20 07:01 Last Admin: 09/16/20 20:44 Dose: 650 mg Documented by: [id number] Admin: 09/16/20 12:28 Dose: 650 mg Documented by: [id number] Admin: 09/16/20 08:28 Dose: 650 mg Documented by: [id number] Albuterol (Albuterol Hfa 8 Gm Inhaler) 2 puffs INH QIDR MARY Stop: 10/13/20 07:14 Last Admin: 09/17/20 11:06 Dose: 2 puffs Documented by: [id number] Admin: 09/17/20 06:59 Dose: 2 puffs Documented by: [id number] Admin: 09/16/20 19:52 Dose: 2 puffs Documented by: [id number] Admin: 09/16/20 15:08 Dose: 2 puffs Documented by: [id number] Admin: 09/16/20 11:06 Dose: 2 puffs Documented by: [id number] Admin: 09/16/20 07:47 Dose: 2 puffs Documented by: [id number] Admin: 09/15/20 19:24 Dose: 2 puffs Documented by: [id number] Admin: 09/15/20 14:55 Dose: 2 puffs Documented by: [id number] Admin: 09/15/20 11:01 Dose: 2 puffs Documented by: [id number] Admin: 09/15/20 07:42 Dose: 2 puffs Documented by: [id number] Admin: 09/14/20 19:47 Dose: 2 puffs Documented by: [id number] Admin: 09/14/20 16:05 Dose: 2 puffs Documented by: [id number] Admin: 09/14/20 11:05 Dose: 2 puffs Documented by: [id number] Admin: 09/14/20 07:34 Dose: 2 puffs Documented by: [id number] Admin: 09/13/20 20:04 Dose: Not Given Documented by: [id number] Admin: 09/13/20 20:04 Dose: Not Given Documented by: [id number] Admin: 09/13/20 19:06 Dose: 2 puffs Documented by: [id number] Admin: 09/13/20 17:01 Dose: Not Given Documented by: [id number] Albuterol (Albut/Ipratrop 3mg/0.5mg Neb 3 Ml Vial) 3 ml INH Q4H PRN PRN Reason: Shortness Of Breath Or Wheezing Stop: 10/13/20 07:01 Last Admin: 09/13/20 23:55 Dose: 3 ml Documented by: [id number] Cholestyramine Resin (Cholestyramine Light 4 Gm Pkt) 4 gm PO BID@1000,2200 MARY Stop: 10/13/20 09:59 Last Admin: 09/17/20 09:33 Dose: Not Given Documented by: [id number] Admin: 09/16/20 21:36 Dose: 4 gm Documented by: [id number] Admin: 09/16/20 08:21 Dose: Not Given Documented by: [id number] Admin: 09/15/20 23:47 Dose: 4 gm Documented by: [id number] Admin: 09/15/20 10:56 Dose: 4 gm Documented by: [id number] Admin: 09/14/20 20:39 Dose: 4 gm Documented by: [id number] Admin: 09/14/20 10:25 Dose: 4 gm Documented by: [id number] Admin: 09/13/20 23:30 Dose: 4 gm Documented by: [id number] Admin: 09/13/20 09:00 Dose: 4 gm Documented by: [id number] Fluticasone Furoate (Fluticasone Furoate 200mcg 14 Puffs/Inhaler) 1 puffs INH DAILY MARY; Protocol Stop: 10/13/20 08:59 Last Admin: 09/17/20 07:21 Dose: 1 puffs Documented by: [id number] Admin: 09/16/20 08:20 Dose: 1 puffs Documented by: [id number] Admin: 09/15/20 08:21 Dose: 1 puffs Documented by: [id number] Admin: 09/14/20 08:30 Dose: 1 puffs Documented by: [id number] Admin: 09/13/20 09:00 Dose: 1 puffs Documented by: [id number] Guaifenesin (Guaifenesin 600 Mg Tabcr) 600 mg PO Q12 MARY Stop: 10/14/20 08:59 Last Admin: 09/17/20 07:20 Dose: 600 mg Documented by: [id number] Admin: 09/16/20 20:44 Dose: 600 mg Documented by: [id number] Admin: 09/16/20 08:21 Dose: 600 mg Documented by: [id number] Admin: 09/15/20 20:37 Dose: 600 mg Documented by: [id number] Admin: 09/15/20 08:20 Dose: 600 mg Documented by: [id number] Admin: 09/14/20 20:38 Dose: 600 mg Documented by: [id number] Admin: 09/14/20 08:25 Dose: 600 mg Documented by: [id number] Hydroxyzine HCl (Hydroxyzine Hcl 25 Mg Tab) 50 mg PO TID PRN PRN Reason: Anxiety Stop: 10/13/20 07:01 Last Admin: 09/17/20 13:31 Dose: 50 mg Documented by: [id number] Admin: 09/16/20 17:32 Dose: 50 mg Documented by: [id number] Admin: 09/14/20 08:25 Dose: 50 mg Documented by: [id number] Admin: 09/13/20 09:00 Dose: 50 mg Documented by: [id number] Sodium Chloride (Nss 1000ml) 1,000 mls @ 100 mls/hr IV .Q10H MARY Stop: 10/13/20 07:01 Last Admin: 09/17/20 11:57 Dose: 100 mls/hr Documented by: [id number] Infusion: 09/17/20 11:56 Dose: 0 mls/hr Documented by: [id number] Admin: 09/17/20 00:29 Dose: 100 mls/hr Documented by: [id number] Infusion: 09/16/20 23:54 Dose: 100 mls/hr Documented by: [id number] Admin: 09/16/20 13:54 Dose: 100 mls/hr Documented by: [id number] Infusion: 09/16/20 13:53 Dose: 0 mls/hr Documented by: [id number] Admin: 09/15/20 20:34 Dose: 100 mls/hr Documented by: [id number] Infusion: 09/15/20 20:33 Dose: 0 mls/hr Documented by: [id number] Admin: 09/15/20 00:28 Dose: 100 mls/hr Documented by: [id number] Infusion: 09/14/20 22:54 Dose: 100 mls/hr Documented by: [id number] Admin: 09/14/20 12:54 Dose: 100 mls/hr Documented by: [id number] Infusion: 09/14/20 12:42 Dose: 100 mls/hr Documented by: [id number] Admin: 09/14/20 02:42 Dose: 100 mls/hr Documented by: [id number] Infusion: 09/14/20 02:41 Dose: 0 mls/hr Documented by: [id number] Admin: 09/13/20 23:05 Dose: 100 mls/hr Documented by: [id number] Infusion: 09/13/20 23:03 Dose: 0 mls/hr Documented by: [id number] Admin: 09/13/20 09:03 Dose: 100 mls/hr Documented by: [id number] Doxycycline Hyclate 100 mg/ (Dextrose) 110 mls @ 50 mls/hr IV Q12H MARY Stop: 09/20/20 07:59 Last Infusion: 09/17/20 09:33 Dose: 0 mls/hr Documented by: [id number] Admin: 09/17/20 07:20 Dose: 50 mls/hr Documented by: [id number] Infusion: 09/16/20 23:10 Dose: 0 mls/hr Documented by: [id number] Admin: 09/16/20 20:44 Dose: 50 mls/hr Documented by: [id number] Infusion: 09/16/20 10:32 Dose: 0 mls/hr Documented by: [id number] Admin: 09/16/20 08:20 Dose: 50 mls/hr Documented by: [id number] Infusion: 09/15/20 23:49 Dose: 0 mls/hr Documented by: [id number] Admin: 09/15/20 20:32 Dose: 50 mls/hr Documented by: [id number] Infusion: 09/15/20 10:35 Dose: 0 mls/hr Documented by: [id number] Admin: 09/15/20 08:20 Dose: 50 mls/hr Documented by: [id number] Infusion: 09/14/20 22:54 Dose: 0 mls/hr Documented by: [id number] Admin: 09/14/20 20:37 Dose: 50 mls/hr Documented by: [id number] Infusion: 09/14/20 10:15 Dose: 0 mls/hr Documented by: [id number] Admin: 09/14/20 08:27 Dose: 50 mls/hr Documented by: [id number] Infusion: 09/14/20 01:42 Dose: 0 mls/hr Documented by: [id number] Admin: 09/13/20 23:28 Dose: 50 mls/hr Documented by: [id number] Infusion: 09/13/20 11:10 Dose: 0 mls/hr Documented by: [id number] Admin: 09/13/20 09:01 Dose: 50 mls/hr Documented by: [id number] Piperacillin Sod/Tazobactam (Sod 4.5 gm/ Dextrose) 120 mls @ 30 mls/hr IV Q8H [facility]; Protocol Stop: 09/20/20 13:59 Last Admin: 09/17/20 09:39 Dose: 30 mls/hr Documented by: [id number] Infusion: 09/17/20 05:02 Dose: 0 mls/hr Documented by: [id number] Admin: 09/17/20 00:30 Dose: 30 mls/hr Documented by: [id number] Infusion: 09/16/20 20:41 Dose: 0 mls/hr Documented by: [id number] Admin: 09/16/20 16:33 Dose: 30 mls/hr Documented by: [id number] Infusion: 09/16/20 12:26 Dose: 0 mls/hr Documented by: [id number] Admin: 09/16/20 08:20 Dose: 30 mls/hr Documented by: [id number] Infusion: 09/16/20 04:39 Dose: 0 mls/hr Documented by: [id number] Admin: 09/15/20 23:54 Dose: 30 mls/hr Documented by: [id number] Infusion: 09/15/20 20:39 Dose: 0 mls/hr Documented by: [id number] Admin: 09/15/20 15:59 Dose: 30 mls/hr Documented by: [id number] Infusion: 09/15/20 14:35 Dose: 0 mls/hr Documented by: [id number] Admin: 09/15/20 10:30 Dose: 30 mls/hr Documented by: [id number] Infusion: 09/15/20 05:10 Dose: 0 mls/hr Documented by: [id number] Admin: 09/15/20 01:00 EST Dose: 30 mls/hr Documented by: [id number] Infusion: 09/14/20 20:09 Dose: 0 mls/hr Documented by: [id number] Admin: 09/14/20 16:09 Dose: 30 mls/hr Documented by: [id number] Infusion: 09/14/20 14:43 Dose: 0 mls/hr Documented by: [id number] Admin: 09/14/20 10:16 Dose: 30 mls/hr Documented by: [id number] Infusion: 09/14/20 06:07 Dose: 0 mls/hr Documented by: [id number] Admin: 09/14/20 01:36 Dose: 30 mls/hr Documented by: [id number] Infusion: 09/13/20 19:07 Dose: 0 mls/hr Documented by: [id number] Admin: 09/13/20 14:52 Dose: 30 mls/hr Documented by: [id number] Lorazepam (Lorazepam 0.5 Mg Tab) 0.5 mg PO BID PRN PRN Reason: Anxiety Stop: 10/13/20 07:01 Last Admin: 09/17/20 07:20 Dose: 0.5 mg Documented by: [id number] Admin: 09/16/20 20:44 Dose: 0.5 mg Documented by: [id number] Admin: 09/16/20 08:28 Dose: 0.5 mg Documented by: [id number] Admin: 09/15/20 15:59 Dose: 0.5 mg Documented by: [id number] Admin: 09/15/20 08:26 Dose: 0.5 mg Documented by: [id number] Admin: 09/14/20 15:11 Dose: 0.5 mg Documented by: [id number] Admin: 09/13/20 18:45 Dose: 0.5 mg Documented by: [id number] Mirtazapine (Mirtazapine Tab 15 Mg Tab) 30 mg PO HS MARY Stop: 10/13/20 20:59 Last Admin: 09/16/20 20:45 Dose: 30 mg Documented by: [id number] Admin: 09/15/20 20:37 Dose: 15 mg Documented by: [id number] Admin: 09/14/20 20:38 Dose: 30 mg Documented by: [id number] Admin: 09/14/20 01:36 Dose: 30 mg Documented by: [id number] Nystatin (Nystatin Powder 15gm Btl) 1 appln EXT BID MARY Stop: 10/13/20 08:59 Last Admin: 09/17/20 07:20 Dose: 1 appln Documented by: [id number] Admin: 09/16/20 20:47 Dose: 1 appln Documented by: [id number] Admin: 09/16/20 08:21 Dose: 1 appln Documented by: [id number] Admin: 09/15/20 20:36 Dose: 45 appln Documented by: [id number] Admin: 09/15/20 08:21 Dose: 1 appln Documented by: [id number] Admin: 09/14/20 20:38 Dose: 1 appln Documented by: [id number] Admin: 09/14/20 08:26 Dose: 1 appln Documented by: [id number] Admin: 09/13/20 23:30 Dose: 1 appln Documented by: [id number] Admin: 09/13/20 09:01 Dose: 1 appln Documented by: [id number] Potassium Chloride (Potassium Chloride 20 Meq Tabcr) 20 meq PO QAM MARY Stop: 10/17/20 08:59 Last Admin: 09/17/20 07:20 Dose: 20 meq Documented by: [id number] Prednisone (Prednisone 20 Mg Tab) 40 mg PO DAILY MARY Stop: 10/13/20 07:29 Last Admin: 09/17/20 07:20 Dose: 40 mg Documented by: [id number] Admin: 09/16/20 08:21 Dose: 40 mg Documented by: [id number] Admin: 09/15/20 08:20 Dose: 40 mg Documented by: [id number] Admin: 09/14/20 08:24 Dose: 40 mg Documented by: [id number] Admin: 09/13/20 09:00 Dose: 40 mg Documented by: [id number] Sertraline HCl (Sertraline Hcl 50 Mg Tablet) 150 mg PO DAILY MARY Stop: 10/13/20 08:59 Last Admin: 09/17/20 07:20 Dose: 150 mg Documented by: [id number] Admin: 09/16/20 08:21 Dose: 150 mg Documented by: [id number] Admin: 09/15/20 08:21 Dose: 150 mg Documented by: [id number] Admin: 09/14/20 08:25 Dose: 150 mg Documented by: [id number] Admin: 09/13/20 09:00 Dose: 150 mg Documented by: [id number] Coding Level of Care Code 95462 [facility] Intl Hosp Care Lvl 3
--- NOTE | 2020-09-17 14:21 | Hospitalist Progress Note ---
Date of Service September 17, 2020 Assessment & Plan (1) Altered mental status: Altered mental status Probable toxic / metabolic encephalopathy Toxicology screen negative. --MRI Brain: No acute intracranial abnormality, specifically there is no acute or subacute infarct. Encephalomalacia and gliosis related to remote infarcts of the bilateral frontal lobes and left insular cortex. Paranasal sinus disease as above with right maxillary sinus air-fluid level suggestive of acute sinusitis. No abnormal enhancement. --recently prescribed guaifenesin with codeine 09/04 --Also on hydroxyzine, lorazepam chronically PRN for anxiety --Currently oriented but could recall events from last week --Slowly improving (2) Bronchitis: Acute Bronchitis CXR:Possible mild pulmonary vascular congestion. Basilar opacity statistically atelectatic. Mild right hilar prominence, likely vascular. SARS-CoV-2 PCR negative. Sputum culture pending Continue doxycycline and piperacillin / tazobactam. (3) Sinusitis: MRI suggestive of right maxillary sinusitis Continue antibiotics as above (4) COPD with exacerbation: Acute COPD exacerbation Chronic oxygen dependency--on 3 L at baseline Continue prednisone, bronchodilators Continue supplemental oxygen--titrate as able to keep sats greater than 90% (5) UTI (urinary tract infection): Urine culture: Klebsiella pneumoniae Continue Zosyn (6) Abdominal wall cellulitis: Continue doxycycline, piperacillin / tazobactam. (7) Atrial fibrillation: H/O PAF. Continue Coumadin Monitor INR: 3.2 Adjust Coumadin dose as needed (8) Cerebrovascular disease: H/O Embolic strokes. H/O PAF and PFO. CT showed old strokes and possible pontine stroke new since 2017. MRI brain as above--no new CVA Appreciate neurology input Continue Coumadin Needs follow-up with neurology upon discharge (9) Chronic respiratory failure: Chronic hypoxic respiratory failure due to COPD. Continue supplemental Oxygen (10) Hypokalemia: Replace electrolytes as needed Monitor (11) Anxiety and depression: H/O Anxiety, Depression. Recently her On hydroxyzine, lorazepam PRN chronically for anxiety Consulted Psychiatry (12) Morbid obesity: BMI 45. Heart healthy diet. (13) DVT prophylaxis: Coumadin Disposition To be determined (14) Discharge planning issues: Discharge disposition to be determined. May need skilled care or rehab. PT / OT evals. Family Medicine follow-up with Dr. Alexandra. Son Ed given update by phone 09/15. Admission and Anticipated Discharge Date Admission Date: September 13, 2020 Subjective Patient is seen and examined at bedside Reports cough with expectoration States having chronic bilateral leg pain Also reports mild abdominal discomfort Denies chest pain, dyspnea, dysuria, hematuria Oriented to person, place, date this morning Offers no other complaints Review of Systems Review of Systems: All systems reviewed & are unremarkable except as noted in HPI & below Physical Exam Physical Exam: Physical Exam: Vitals signs as noted above General Appearance:Obese, no apparent distress Head: normocephalic, Atraumatic Eyes: normal inspection, EOMI Neck: supple, Trachea midline Respiratory/Chest: Decreased breath sounds, B/L rhonchi Cardiovascular: S1, S2, No murmur Abdomen/GI:Soft, Non tender, Bowel sounds present, +inguinal rash Extremities/Musculoskelatal:normal inspection, Trace pedal edema Neurologic/Psych:AAO, grossly no focal neurological deficits Skin: normal color, warm Results & Data Results & Data ([facility]) Vital Signs (Past 12 Hours) Vital Signs Temp Pulse Pulse Pulse Resp BP BP 09/17/20 12:00 36.8 C 83 18 143/84 H 09/17/20 07:30 36.7 C 69 22 123/81 09/17/20 06:59 74 18 09/17/20 03:19 36.4 C L 77 18 110/70 Pulse Ox 09/17/20 12:00 94 09/17/20 07:30 96 09/17/20 06:59 95 09/17/20 03:19 97 Laboratory Results Short CBC 09/17/20 Range/Units 07:58 WBC 11.51 H (4.8-10.8) K/uL Hgb 11.6 L (12.0-16.0) g/dL Hct 36.7 L (37-47) % Plt Count 400 (130-400) K/uL BMP 09/17/20 07:58 Sodium 143 Potassium 3.5 Chloride 109 H Carbon Dioxide 29 BUN 17 D Creatinine 0.58 L Glucose 72 Calcium 8.3 L
[2020-09-17] MEDS: ACETAMINOPHEN 325 MG TAB PO PRN (15:00)
[2020-09-17] MEDS ORDERED: WARFARIN SOD 10 MG TAB PO SCH (16:00)
[2020-09-17] MEDS ORDERED: WARFARIN SOD 2 MG TAB PO SCH (16:00)
[2020-09-17] MEDS ORDERED: traMADol HCL 50 MG TABLET PO STA (19:35)
[2020-09-18] MEDS: PIPERACILLIN/TAZOBACTAM 4.5 GM in DEXTROSE 5% 100 ML IV SCH ×3 (00:59→15:51)
[2020-09-18] MEDS: ACETAMINOPHEN 325 MG TAB PO PRN ×2 (02:00→12:44)
[2020-09-18] MEDS: MELATONIN 3 MG TAB PO PRN ×2 (03:02→23:18)
[2020-09-18 06:33] LABS: INR 2.7 (0.9-1.1); Prothrombin Time 26.9 Seconds (9.0-12.0)
[2020-09-18 06:52] LABS: BUN Creatinine Ratio 23.8 (10-20); Calcium 8.4 mg/dl (8.5-10.1); Creatinine Clr Calc Pharmacy 120.2 ml/min; Est GFR (African American) 114.2; Est GFR (Non-African American) 98.5; Potassium 3.9 mmol/L (3.5-5.1)
[2020-09-18] MEDS: ALBUTEROL HFA 8 GM INHALER INH SCH ×4 (07:13→19:27)
[2020-09-18] MEDS: DOXYCYCLINE HYCLATE 100 MG in DEXTROSE 5% 100 ML IV SCH (07:35)
[2020-09-18] MEDS: NYSTATIN POWDER 15GM BTL EXT SCH ×2 (07:36→20:00)
[2020-09-18] MEDS: SERTRALINE HCL 50 MG TABLET PO SCH (07:36)
[2020-09-18] MEDS: POTASSIUM CHLORIDE CRTAB 20 MEQ TABCR PO SCH (07:37)
[2020-09-18] MEDS: guaiFENesin 600 MG TABCR PO SCH ×2 (07:37→20:00)
[2020-09-18] MEDS: predniSONE 20 MG TAB PO SCH (07:37)
[2020-09-18] MEDS: FLUTICASONE FUROATE 200MCG 14 PUFFS/INHALER INH SCH (07:37)
[2020-09-18] MEDS: LORazepam 0.5 MG TAB PO PRN ×2 (07:42→15:51)
[2020-09-18] MEDS: CHOLESTYRAMINE LIGHT 4 GM PKT PO SCH ×2 (09:25→21:32)
[2020-09-18] MEDS: hydrOXYzine HCl 25 MG TAB PO PRN ×2 (12:44→20:05)
[2020-09-18] MEDS: GABAPENTIN 100 MG CAP PO SCH ×2 (13:31→20:00)
[2020-09-18] MEDS ORDERED: WARFARIN SOD 5 MG TAB PO SCH (16:00)
--- NOTE | 2020-09-18 18:46 | Hospitalist Progress Note ---
Date of Service September 18, 2020 Assessment & Plan (1) Altered mental status: Altered mental status Probable toxic / metabolic encephalopathy Toxicology screen negative. --MRI Brain: No acute intracranial abnormality, specifically there is no acute or subacute infarct. Encephalomalacia and gliosis related to remote infarcts of the bilateral frontal lobes and left insular cortex. Paranasal sinus disease as above with right maxillary sinus air-fluid level suggestive of acute sinusitis. No abnormal enhancement. --recently prescribed guaifenesin with codeine 09/04 --Also on hydroxyzine, lorazepam chronically PRN for anxiety --Currently oriented but could recall events from last week --Mental status seems to be back to baseline --Benzodiazepines need to be titrated off as able -Check Thyroid function test Right Knee Pain Mild ecchymosis Check X ray to R/O fracture (2) Bronchitis: Acute Bronchitis CXR:Possible mild pulmonary vascular congestion. Basilar opacity statistically atelectatic. Mild right hilar prominence, likely vascular. SARS-CoV-2 PCR negative. Sputum culture: Corynebacterium species Continue doxycycline Plan to transition Zosyn to Augmentin tmw (3) Sinusitis: MRI suggestive of right maxillary sinusitis Continue antibiotics as above (4) COPD with exacerbation: Acute COPD exacerbation Chronic oxygen dependency--on 3 L at baseline Continue prednisone, bronchodilators Continue supplemental oxygen--titrate as able to keep sats greater than 90% Taper prednisone as able (5) UTI (urinary tract infection): Urine culture: Klebsiella pneumoniae Continue Zosyn (6) Abdominal wall cellulitis: Continue doxycycline, piperacillin / tazobactam. (7) Atrial fibrillation: H/O PAF. Continue Coumadin Monitor INR: 3.2>2.7 Adjust Coumadin dose as needed (8) Cerebrovascular disease: H/O Embolic strokes. H/O PAF and PFO. CT showed old strokes and possible pontine stroke new since 2017. MRI brain as above--no new CVA Appreciate neurology input Continue Coumadin Needs follow-up with neurology upon discharge (9) Chronic respiratory failure: Chronic hypoxic respiratory failure due to COPD. Continue supplemental Oxygen (10) Hypokalemia: Replace electrolytes as needed Monitor (11) Anxiety and depression: H/O Anxiety, Depression. Recently her On hydroxyzine, lorazepam PRN chronically for anxiety Appreciate Psychiatry Input Taper off of Benzos as able (12) Morbid obesity: BMI 45. Heart healthy diet. Chronic Pain High risk for Narcotic dependence Resumed gabapentin at lower dose (13) DVT prophylaxis: Coumadin (14) Discharge planning issues: Disposition May need SNF placement Family Medicine follow-up with Dr. Alexandra. Admission and Anticipated Discharge Date Admission Date: September 13, 2020 Subjective Patient is seen and examined at bedside Reports cough about the same as yesterday Also states having headache Reports chronic pain which she attributes to neuropathy, osteoarthritis Discussed with patient's family at bedside Denies chest pain, dyspnea, dysuria, hematuria Review of Systems Review of Systems: All systems reviewed & are unremarkable except as noted in HPI & below Physical Exam Physical Exam: Physical Exam: Vitals signs as noted above General Appearance:Obese, no apparent distress Head: normocephalic, Atraumatic Eyes: normal inspection, EOMI Neck: supple, Trachea midline Respiratory/Chest: Decreased breath sounds, minimal rhonchi Cardiovascular: S1, S2, No murmur Abdomen/GI:Soft, Non tender, Bowel sounds present, +inguinal rash Extremities/Musculoskelatal:normal inspection, Trace pedal edema Neurologic/Psych:AAO, grossly no focal neurological deficits Skin: normal color, warm Results & Data Results & Data ([facility]) Vital Signs (Past 12 Hours) Vital Signs Temp Pulse Pulse Resp BP BP Pulse Ox 09/18/20 17:18 66 09/18/20 15:35 70 20 87 L 09/18/20 15:00 36.7 C 69 20 114/74 91 09/18/20 11:00 36.4 C L 67 20 123/70 90 09/18/20 10:46 67 16 95 09/18/20 07:15 36.4 C L 55 L 16 110/73 95 09/18/20 07:14 58 L 16 95 Laboratory Results BMP 09/18/20 06:17 Sodium 141 Potassium 3.9 Chloride 109 H Carbon Dioxide 31 BUN 15 Creatinine 0.61 Glucose 73 Calcium 8.4 L
[2020-09-18] MEDS: DOXYCYCLINE HYCLATE 100 MG CAP PO SCH (20:00)
[2020-09-18] MEDS: ACETAMINOPHEN 500 MG TAB PO PRN (20:05)
--- NOTE | 2020-09-18 20:49 | XRay Report ---
RIGHT KNEE 3 VIEWS HISTORY: Right knee pain. R/O fracture COMPARISON: None. FINDINGS: There is no fracture or dislocation. Moderate cartilage space narrowing within the medial c ompartment of the knee with subchondral sclerosis and marginal osteophytes. This is consistent with o steoarthritis. Mild anterior soft tissue swelling. No significant knee effusion. There is also modera te osteophytes at the patellofemoral joint. No radiopaque foreign bodies. IMPRESSION: No fracture or dislocation within the right knee. ACT 112: Negative or not required by law. Electronically signed by: Otto Hendrickson M.D. 09/18/2020 8:47 PM
[2020-09-19] MEDS: PIPERACILLIN/TAZOBACTAM 4.5 GM in DEXTROSE 5% 100 ML IV SCH ×2 (00:25→07:41)
[2020-09-19] MEDS: hydrOXYzine HCl 25 MG TAB PO PRN ×2 (02:26→12:16)
[2020-09-19 06:54] LABS: Hematocrit (blood only) 39.9 % (37-47); Mean Corpuscular Hemoglobin 31.9 pg (25-34); Mean Corpuscular Hgb Conc 32.6 g/dL (32-36); Mean Platelet Volume 8.8 fL (7.4-10.4); Platelet Count 452 K/uL (130-400); RDW Coefficient of Variation 14.7 % (11.5-14.5); RDW Standard Deviation 52.8 fL (36.4-46.3); Red Blood Count 4.07 M/uL (4.2-5.4); White Blood Count 14.32 K/uL (4.8-10.8)
[2020-09-19 07:02] LABS: INR 2.9 (0.9-1.1); Prothrombin Time 28.7 Seconds (9.0-12.0)
[2020-09-19] MEDS: ALBUTEROL HFA 8 GM INHALER INH SCH ×4 (07:09→19:17)
[2020-09-19 07:29] LABS: Calcium 8.8 mg/dl (8.5-10.1); Creatinine Clr Calc Pharmacy 112.1 ml/min; Est GFR (African American) 111.8; Est GFR (Non-African American) 96.5; Potassium 3.7 mmol/L (3.5-5.1)
[2020-09-19 07:40] LABS: Thyroid Stimulating Hormone 2.15 uIu/ml (0.300-4.500)
[2020-09-19] MEDS: NYSTATIN POWDER 15GM BTL EXT SCH ×2 (07:42→19:51)
[2020-09-19] MEDS: FLUTICASONE FUROATE 200MCG 14 PUFFS/INHALER INH SCH (07:42)
[2020-09-19] MEDS: DOXYCYCLINE HYCLATE 100 MG CAP PO SCH ×2 (07:42→19:52)
[2020-09-19] MEDS: SERTRALINE HCL 50 MG TABLET PO SCH (07:42)
[2020-09-19] MEDS: guaiFENesin 600 MG TABCR PO SCH ×2 (07:43→19:52)
[2020-09-19] MEDS: GABAPENTIN 100 MG CAP PO SCH ×2 (07:43→19:51)
[2020-09-19] MEDS: POTASSIUM CHLORIDE CRTAB 20 MEQ TABCR PO SCH (07:43)
[2020-09-19] MEDS: predniSONE 10 MG TABLET PO SCH (08:47)
[2020-09-19] MEDS: CHOLESTYRAMINE LIGHT 4 GM PKT PO SCH ×2 (08:48→21:57)
--- NOTE | 2020-09-19 13:24 | XRay Report ---
XR hip LT min 2V CLINICAL HISTORY: Left hip pain COMPARISON: April 2012 DISCUSSION: The study is mildly limited from a technical standpoint. No acute fractures are visualize d. The provided crosstable lateral view is suboptimal. A sclerotic femoral neck focus likely represen ts visualization of an osteophyte en face. An impaction fracture is not felt likely as no history of trauma was given. IMPRESSION: 1. Somewhat limited study from a technical standpoint 2. No acute fractures identified 3. Moderate osteoarthritic change ACT 112: Negative or not required by law. Electronically signed by: Wesly Fontenot M.D. 09/19/2020 1:23 PM
--- NOTE | 2020-09-19 13:25 | XRay Report ---
XR knee LT 3V CLINICAL HISTORY: Left knee pain status post trauma COMPARISON: April 2012 DISCUSSION: No acute fractures are visualized. There are moderate osteoarthritic changes. There is me dial joint compartment spurring. There are dorsal patellar spurs. IMPRESSION: 1. Progressive osteoarthritic change 2. No acute fractures ACT 112: Negative or not required by law. Electronically signed by: Wesly Fontenot M.D. 09/19/2020 1:24 PM
[2020-09-19] MEDS: LORazepam 0.5 MG TAB PO PRN (14:48)
[2020-09-19] MEDS: AMOXICILLIN/CLAVULANATE 875 MG TAB PO SCH (15:56)
[2020-09-19] MEDS ORDERED: WARFARIN SOD 4 MG TAB PO SCH (16:00)
--- NOTE | 2020-09-19 17:51 | Hospitalist Progress Note ---
Date of Service September 19, 2020 Assessment & Plan (1) Altered mental status: Altered mental status Probable toxic / metabolic encephalopathy Toxicology screen negative. --MRI Brain: No acute intracranial abnormality, specifically there is no acute or subacute infarct. Encephalomalacia and gliosis related to remote infarcts of the bilateral frontal lobes and left insular cortex. Paranasal sinus disease as above with right maxillary sinus air-fluid level suggestive of acute sinusitis. No abnormal enhancement. --recently prescribed guaifenesin with codeine 09/04 --Normal thyroid function test --Also on hydroxyzine, lorazepam chronically PRN for anxiety --Currently oriented but couldn't recall events from last week --Mental status seems to be back to baseline --Benzodiazepines need to be titrated off as able --Resolved Right/left Leg Pain Mild R knee ecchymosis Likely secondary to neuropathy Imaging studies negative for any acute fractures Started on Neurontin at low-dose (2) Bronchitis: Acute Bronchitis CXR:Possible mild pulmonary vascular congestion. Basilar opacity statistically atelectatic. Mild right hilar prominence, likely vascular. SARS-CoV-2 PCR negative. Sputum culture: Corynebacterium species Continue doxycycline IV Zosyn transition to Augmentin (3) Sinusitis: MRI suggestive of right maxillary sinusitis Continue antibiotics as above (4) COPD with exacerbation: Acute COPD exacerbation Chronic oxygen dependency--on 3 L at baseline Continue prednisone, bronchodilators Continue supplemental oxygen--titrate as able to keep sats greater than 90% Continue prednisone taper (5) UTI (urinary tract infection): Urine culture: Klebsiella pneumoniae Completed antibiotic course with Zosyn (6) Abdominal wall cellulitis: Continue doxycycline Zosyn transition to Augmentin (7) Atrial fibrillation: H/O PAF. Continue Coumadin Monitor INR: 3.2>2.7>2.9 Adjust Coumadin dose as needed (8) Cerebrovascular disease: H/O Embolic strokes. H/O PAF and PFO. CT showed old strokes and possible pontine stroke new since 2017. MRI brain as above--no new CVA Appreciate neurology input Continue Coumadin Needs follow-up with neurology upon discharge (9) Chronic respiratory failure: Chronic hypoxic respiratory failure due to COPD. Continue supplemental Oxygen (10) Hypokalemia: Replace electrolytes as needed Monitor (11) Anxiety and depression: H/O Anxiety, Depression. Recently her On hydroxyzine, lorazepam PRN chronically for anxiety Appreciate Psychiatry Input Taper off of Benzos as able (12) Morbid obesity: BMI 45. Heart healthy diet. Chronic Pain High risk for Narcotic dependence Resumed gabapentin at lower dose (13) DVT prophylaxis: Coumadin (14) Discharge planning issues: Disposition May need SNF placement Family Medicine follow-up with Dr. Alexandra. Admission and Anticipated Discharge Date Admission Date: September 13, 2020 Subjective Patient is seen and examined at bedside Complains of left leg pain this morning Also reports headache Anxious during my encounter Less cough today No significant dyspnea Denies chest pain, nausea, vomiting, diarrhea, dysuria, hematuria Leukocytosis likely secondary to steroids Review of Systems Review of Systems: All systems reviewed & are unremarkable except as noted in HPI & below Physical Exam Physical Exam: Physical Exam: Vitals signs as noted above General Appearance:Obese, no apparent distress Head: normocephalic, Atraumatic Eyes: normal inspection, EOMI Neck: supple, Trachea midline Respiratory/Chest: Decreased breath sounds, minimal rhonchi Cardiovascular: S1, S2, No murmur Abdomen/GI:Soft, Non tender, Bowel sounds present, +inguinal rash Extremities/Musculoskelatal:normal inspection, Trace pedal edema Neurologic/Psych:AAO, grossly no focal neurological deficits Skin: normal color, warm Results & Data Results & Data ([facility]) Vital Signs (Past 12 Hours) Vital Signs Temp Pulse Pulse Pulse Pulse Resp BP 09/19/20 15:50 36.6 C 76 18 119/60 09/19/20 15:21 72 19 09/19/20 15:16 70 09/19/20 11:57 36.6 C 73 18 108/70 09/19/20 10:51 74 19 09/19/20 07:30 37 C 62 16 120/75 09/19/20 07:10 74 20 Pulse Ox 09/19/20 15:50 90 09/19/20 15:21 94 09/19/20 15:16 09/19/20 11:57 92 09/19/20 10:51 96 09/19/20 07:30 95 09/19/20 07:10 92 Laboratory Results Short CBC 09/19/20 Range/Units 06:10 WBC 14.32 H (4.8-10.8) K/uL Hgb 13.0 (12.0-16.0) g/dL Hct 39.9 (37-47) % Plt Count 452 H (130-400) K/uL BMP 09/19/20 06:10 Sodium 140 Potassium 3.7 Chloride 105 Carbon Dioxide 31 BUN 18 Creatinine 0.65 Glucose 66 L Calcium 8.8
[2020-09-19] MEDS: ACETAMINOPHEN 500 MG TAB PO PRN (19:50)
[2020-09-20] MEDS: ALBUTEROL HFA 8 GM INHALER INH SCH ×4 (07:06→19:11)
[2020-09-20 07:22] LABS: INR 2.7 (0.9-1.1); Prothrombin Time 26.6 Seconds (9.0-12.0)
[2020-09-20 07:40] LABS: BUN Creatinine Ratio 33.2 (10-20); Calcium 8.6 mg/dl (8.5-10.1); Creatinine Clr Calc Pharmacy 118.5 ml/min; Est GFR (African American) 114.2; Est GFR (Non-African American) 98.5; Potassium 3.8 mmol/L (3.5-5.1)
[2020-09-20] MEDS: DOXYCYCLINE HYCLATE 100 MG CAP PO SCH ×2 (08:18→20:17)
[2020-09-20] MEDS: predniSONE 10 MG TABLET PO SCH (08:18)
[2020-09-20] MEDS: guaiFENesin 600 MG TABCR PO SCH ×2 (08:19→20:19)
[2020-09-20] MEDS: POTASSIUM CHLORIDE CRTAB 20 MEQ TABCR PO SCH (08:20)
[2020-09-20] MEDS: SERTRALINE HCL 50 MG TABLET PO SCH (08:20)
[2020-09-20] MEDS: NYSTATIN POWDER 15GM BTL EXT SCH ×2 (08:21→20:17)
[2020-09-20] MEDS: GABAPENTIN 100 MG CAP PO SCH (08:21)
[2020-09-20] MEDS: AMOXICILLIN/CLAVULANATE 875 MG TAB PO SCH ×2 (08:22→17:16)
[2020-09-20] MEDS: FLUTICASONE FUROATE 200MCG 14 PUFFS/INHALER INH SCH (08:22)
[2020-09-20] MEDS: LORazepam 0.5 MG TAB PO PRN ×2 (08:31→20:16)
[2020-09-20] MEDS: ACETAMINOPHEN 500 MG TAB PO PRN ×2 (08:31→23:52)
[2020-09-20] MEDS ORDERED: GLUCAGON FOR INJ 1 MG VIAL SQ PRN (08:33)
[2020-09-20] MEDS ORDERED: DEXTROSE 50% 50 ML SYRINGE IV PRN (08:33)
[2020-09-20] MEDS ORDERED: GLUCOSE 40% GEL 15 GM TUBE PO PRN (08:33)
[2020-09-20] MEDS ORDERED: GLUCOSE 10 TABS/TUBE PO PRN (08:33)
[2020-09-20] MEDS ORDERED: CARBOHYDRATES FOR HYPOGLYCEMIA PO PRN (08:33)
[2020-09-20] MEDS ORDERED: traMADol HCL 50 MG TABLET PO ONE (09:36)
[2020-09-20] MEDS ORDERED: GABAPENTIN 100 MG CAP PO ONE (10:00)
[2020-09-20] MEDS: CHOLESTYRAMINE LIGHT 4 GM PKT PO SCH ×2 (10:13→22:10)
[2020-09-20] MEDS: hydrOXYzine HCl 25 MG TAB PO PRN ×2 (14:06→23:52)
[2020-09-20] MEDS ORDERED: PERFLUTREN LIPID MICROSPHERE (DEFINITY) IV ONE (15:11)
--- NOTE | 2020-09-20 15:29 | XRay Report ---
XR chest 1V portable CLINICAL HISTORY: Chest pain radiating into left arm and jaw. COMPARISON STUDY: Chest CT September 16, 2015. Chest radiograph September 13, 2020. FINDINGS: There is no pneumothorax or pleural effusion. Mild cardiomegaly is unchanged. There is pulm onary vascular congestion. No consolidation is identified. Old left fourth rib fracture is incidental ly noted. IMPRESSION: 1. Pulmonary vascular congestion. 2. Left basilar opacity which favors atelectasis. ACT 112: Negative or not required by law. Electronically signed by: Guilherme Mancini M.D. 09/20/2020 3:27 PM
[2020-09-20] MEDS: WARFARIN SOD 5 MG TAB PO SCH (15:53)
--- NOTE | 2020-09-20 16:51 | Hospitalist Progress Note ---
Date of Service September 20, 2020 Assessment & Plan (1) Altered mental status: Altered mental status Probable toxic / metabolic encephalopathy Toxicology screen negative. --MRI Brain: No acute intracranial abnormality, specifically there is no acute or subacute infarct. Encephalomalacia and gliosis related to remote infarcts of the bilateral frontal lobes and left insular cortex. Paranasal sinus disease as above with right maxillary sinus air-fluid level suggestive of acute sinusitis. No abnormal enhancement. --recently prescribed guaifenesin with codeine 09/04 --Normal thyroid function test --Also on hydroxyzine, lorazepam chronically PRN for anxiety --Currently oriented but couldn't recall events from last week --Mental status seems to be back to baseline --Benzodiazepines need to be titrated off as able --Resolved Chest Pain Pulmonary Vascular Congestion on CXR Likely due to anxiety Initial Troponin Negative EKG no signs of acute Ischemia ECHO: No segmental LV wall motion abnormality Trend Troponin NTG, Lasix PRN Consider Cardiology if needed Anxiety management as per Psych (2) Bronchitis: Acute Bronchitis CXR:Possible mild pulmonary vascular congestion. Basilar opacity statistically atelectatic. Mild right hilar prominence, likely vascular. SARS-CoV-2 PCR negative. Sputum culture: Corynebacterium species Continue doxycycline IV Zosyn transition to Augmentin Check [employer] as has persistence of cough (3) Sinusitis: MRI suggestive of right maxillary sinusitis Continue antibiotics as above (4) COPD with exacerbation: Acute COPD exacerbation Chronic oxygen dependency--on 3 L at baseline Continue prednisone, bronchodilators Continue supplemental oxygen--titrate as able to keep sats greater than 90% Continue prednisone taper (5) UTI (urinary tract infection): Urine culture: Klebsiella pneumoniae Completed antibiotic course with Zosyn (6) Abdominal wall cellulitis: Continue doxycycline Zosyn transition to Augmentin (7) Atrial fibrillation: H/O PAF. Continue Coumadin Monitor INR: 3.2>2.7>2.9>2.7 Adjust Coumadin dose as needed (8) Cerebrovascular disease: H/O Embolic strokes. H/O PAF and PFO. CT showed old strokes and possible pontine stroke new since 2017. MRI brain as above--no new CVA Appreciate neurology input Continue Coumadin Needs follow-up with neurology upon discharge (9) Chronic respiratory failure: Chronic hypoxic respiratory failure due to COPD. Continue supplemental Oxygen (10) Hypokalemia: Replace electrolytes as needed Monitor (11) Anxiety and depression: H/O Anxiety, Depression. Recently her On hydroxyzine, lorazepam PRN chronically for anxiety Appreciate Psychiatry Input Taper off of Benzos as able (12) Morbid obesity: BMI 45. Heart healthy diet. Chronic Pain Right/left Leg Pain Mild R knee ecchymosis High risk for Narcotic dependence Likely secondary to neuropathy/Osteoarthritis Imaging studies negative for any acute fractures Restarted Neurontin at reduced dose (13) DVT prophylaxis: Coumadin (14) Discharge planning issues: Disposition May need SNF placement Family Medicine follow-up with Dr. Alexandra. Admission and Anticipated Discharge Date Admission Date: September 13, 2020 Subjective Patient is seen and examined at bedside Remains anxious (Likely baseline) Sitting in chair this morning Complained of chest today afternoon Also reported sore throat, nausea Has chronic pain Pulmonary congestion noted on chest x ray Still has cough No respiratory distress on exam Denies vomiting, diarrhea, dysuria, hematuria Review of Systems Review of Systems: All systems reviewed & are unremarkable except as noted in HPI & below Physical Exam Physical Exam: Physical Exam: Vitals signs as noted above General Appearance:Obese, no apparent distress Head: normocephalic, Atraumatic Eyes: normal inspection, EOMI Neck: supple, Trachea midline Respiratory/Chest: Decreased breath sounds, minimal rhonchi Cardiovascular: S1, S2, No murmur Abdomen/GI:Soft, Non tender, Bowel sounds present, +inguinal rash Extremities/Musculoskelatal:normal inspection, Trace pedal edema Neurologic/Psych:AAO, grossly no focal neurological deficits Skin: normal color, warm Results & Data Results & Data ([facility]) Vital Signs (Past 12 Hours) Vital Signs Temp Pulse Pulse Resp BP Pulse Ox 09/20/20 16:14 65 22 92 09/20/20 15:41 36.9 C 70 16 110/70 92 09/20/20 15:27 73 09/20/20 14:46 112/58 L 09/20/20 13:57 36.8 C 78 22 96/59 L 92 09/20/20 11:17 36.4 C L 82 16 104/71 93 09/20/20 10:33 74 09/20/20 07:08 75 20 92 Laboratory Results [facility] 09/20/20 06:40 Sodium 140 Potassium 3.8 Chloride 105 Carbon Dioxide 33 H BUN 20 H Creatinine 0.61 Glucose 65 L Calcium 8.6 Cardiac Enzymes 09/20/20 Range/Units 14:38 Troponin I < 0.015 (0-0.045) ng/ml
[2020-09-20] MEDS ORDERED: FUROSEMIDE 20 MG in SYRINGE 0 ML IV ONE (17:00)
[2020-09-20 17:16] LABS: Adenovirus PCR Not Detected (NotDetected); Bordetella parapertussis PCR Not Detected (NotDetected); Bordetella pertussis PCR Not Detected (NotDetected); Chlamydia pneumoniae PCR Not Detected (NotDetected); Coronavirus 229E PCR Not Detected (NotDetected); Coronavirus CoV-2 (COVID19)PCR Not Detected (NotDetected); Coronavirus HKU1 PCR Not Detected (NotDetected); Coronavirus NL63 PCR Not Detected (NotDetected); Coronavirus OC43PCR Not Detected (NotDetected); Human Metapneumovirus PCR Not Detected (NotDetected); Influenza A PCR Not Detected (NotDetected); Influenza B PCR Not Detected (NotDetected); Mycoplasma pneumoniae PCR Not Detected (NotDetected); Parainfluenza Virus 1 PCR Not Detected (NotDetected); Parainfluenza Virus 2 PCR Not Detected (NotDetected); Parainfluenza Virus 3 PCR Not Detected (NotDetected); Parainfluenza Virus 4 PCR Not Detected (NotDetected); Respiratory Syncytial VirusPCR Not Detected (NotDetected)
[2020-09-20] MEDS: CHLORASEPTIC 1.4% SOLN 180 ML BTL MT PRN ×2 (17:16→20:18)
[2020-09-20 17:29] LABS: Rhinovirus/Enterovirus PCR DETECTED (NotDetected)
--- NOTE | 2020-09-20 18:26 | Electrocardiogram Report ---
Test Reason : Blood Pressure : / mmHG Vent. Rate : 073 BPM Atrial Rate : 073 BPM P-R Int : 134 ms QRS Dur : 086 ms QT Int : 384 ms P-R-T Axes : 042 009 072 degrees QTc Int : 423 ms Normal sinus rhythm Normal ECG When compared with ECG of 12-SEP-2020 22:11, Nonspecific T wave abnormality now evident in Lateral leads Confirmed by Dov Cintron ([id number]) on 09/20/2020 6:26:17 PM Referred By: REFERRED SELF Confirmed By:David Cintron
[2020-09-20] MEDS: GABAPENTIN 300 MG CAP PO SCH (20:18)
[2020-09-21] MEDS: ALBUTEROL HFA 8 GM INHALER INH SCH ×4 (07:02→19:28)
[2020-09-21 08:04] LABS: INR 2.5 (0.9-1.1); Prothrombin Time 24.9 Seconds (9.0-12.0)
[2020-09-21 08:17] LABS: BUN Creatinine Ratio 34.7 (10-20); Creatinine Clr Calc Pharmacy 113.5 ml/min; Est GFR (Non-African American) 97.5; Magnesium 2.2 mg/dl (1.8-2.4); Potassium 3.6 mmol/L (3.5-5.1)
[2020-09-21] MEDS: GABAPENTIN 300 MG CAP PO SCH ×2 (08:33→21:15)
[2020-09-21] MEDS: predniSONE 10 MG TABLET PO SCH (08:33)
[2020-09-21] MEDS: POTASSIUM CHLORIDE CRTAB 20 MEQ TABCR PO SCH (08:33)
[2020-09-21] MEDS: guaiFENesin 600 MG TABCR PO SCH ×2 (08:33→21:15)
[2020-09-21] MEDS: SERTRALINE HCL 50 MG TABLET PO SCH (08:34)
[2020-09-21] MEDS: DOXYCYCLINE HYCLATE 100 MG CAP PO SCH ×2 (08:34→21:15)
[2020-09-21] MEDS: AMOXICILLIN/CLAVULANATE 875 MG TAB PO SCH ×2 (08:34→17:14)
[2020-09-21] MEDS: NYSTATIN POWDER 15GM BTL EXT SCH ×2 (08:35→21:16)
[2020-09-21] MEDS: FLUTICASONE FUROATE 200MCG 14 PUFFS/INHALER INH SCH (08:35)
[2020-09-21] MEDS: ACETAMINOPHEN 500 MG TAB PO PRN ×2 (08:39→15:36)
[2020-09-21] MEDS: LORazepam 0.5 MG TAB PO PRN ×2 (08:43→17:42)
[2020-09-21] MEDS: CHOLESTYRAMINE LIGHT 4 GM PKT PO SCH (10:24)
[2020-09-21] MEDS ORDERED: FUROSEMIDE 20 MG in SYRINGE 0 ML IV ONE (11:30)
[2020-09-21] MEDS ORDERED: ISOSORBIDE MONO EXTENDED REL 30 MG TABCR PO ONE (12:00)
--- NOTE | 2020-09-21 12:06 | Cardiology Consultation ---
Date of Consultation September 21, 2020 Assessment & Plan (1) Anxiety and depression: (2) Morbid obesity: (3) Cerebrovascular disease: (4) Altered mental status: The patient has had multiple EKGs which have been normal, negative cardiac markers and to normal resting echocardiograms. I believe her chest pain is atypical. She did find some relief with nitroglycerin and I will add Imdur 30 mg daily to her current medical regiment. I will also start her on a PPI. She has been under a lot of stress recently both physical as well as social. I do not believe any additional cardiac testing is indicated at this time. History of Present Illness Attending Physician: Luis Curry MD History of Present Illness This is a 60-year-old female with multiple medical problems with a previous history of multiple strokes on long-term anticoagulation due to a PFO, chronic pain syndrome on chronic analgesics, anxiety depression, morbid obesity, paroxysmal atrial fibrillation, abdominal wall cellulitis and a UTI. She has had a lot of social problems this year including the of her and the loss of her home. She is currently living with her children. She does have a caregiver but according the patient she has not been available recently. She was admitted with altered mental status. She has had flulike symptoms for about a week and tested positive for a rhinovirus. She is COVID-19 negative. She has been having atypical chest pain radiating into her left arm throughout her admission. She has been here for several days and all of her EKGs thus far are normal. Cardiac markers are negative. She has had 2 resting echocardiograms which have been normal. She has been given some sublingual nitroglycerin with moderate improvement in her discomfort. She denies shortness of breath. She has had no heart palpitations or tachycardia. She has maintained a normal sinus rhythm on telemetry. Allergies Allergy/AdvReac Type Severity Reaction Status Date / Time aspirin Allergy Unknown TAKES Verified 09/12/20 23:23 COUMADIN salicylates AdvReac Unknown ?DUE TO Verified 09/12/20 23:23 COUMADIN? Home Medications Home Medications Medication Instructions Recorded Confirmed Type acetaminophen [Tylenol] 325 - 650 mg PO DIRECTED PRN 09/12/20 09/13/20 History albuterol sulfate 2.5 mg INHALATION Q4H PRN 09/12/20 09/13/20 History albuterol sulfate [ProAir HFA] 2 puff INHALATION QID 09/12/20 09/13/20 History cholestyramine-aspartame [Questran 4 g PO BID 09/12/20 09/13/20 History Light] codeine-guaifenesin 5 ml PO Q4H PRN 09/12/20 09/13/20 History fluticasone propionate [Flovent 2 puff INHALATION BID 09/12/20 09/13/20 History HFA] hydroxyzine HCl 50 mg PO TID PRN 09/12/20 09/13/20 History ipratropium-albuterol [DuoNeb] 3 ml INHALATION Q4H PRN 09/12/20 09/13/20 History lorazepam 0.5 mg PO BID PRN 09/12/20 09/13/20 History mirtazapine 30 mg PO HS 09/12/20 09/13/20 History ondansetron HCl [Zofran] 4 mg PO Q8H PRN 09/12/20 09/13/20 History sertraline 150 mg PO DAILY 09/12/20 09/13/20 History warfarin See Rx Instructions .ROUTE .COMPLEX 09/12/20 09/13/20 History gabapentin 600 mg PO BID 09/18/20 09/18/20 History Patient History Medical History Anxiety and depression Atrial fibrillation Cerebrovascular disease History of stroke "embolic stroke, underlying PFO" Morbid obesity Surgical History Status post cholecystectomy Status post hysterectomy Social History Smoking Status: Current every day smoker Cigarettes Per Day: 40; Second Hand Exposure: Yes; Tobacco Cessation Education Requested by Patient: No Hx Alcohol Use: No Hx Substance Use: No Preferred Language: Kiswahili Communication Ability: Effective Vascular Neurologist Required: No Beliefs That Will Affect Care: Mormonism (Confucianism ) Current Living Situation: Family Current Living Situation Comment: Lives with Laura (granddaughter) and Cj (granddaughter's s/o) Other Information That Helps Us Care for You: No Feels Safe at Home: Yes Safety Concerns: Feels Safe At This Time Assistive Devices: Oxygen - Continuous Review of Systems Review of Systems: All systems reviewed & are unremarkable except as noted in HPI & below Nothing additional to add. Physical Exam Physical Exam: General: no acute distress and stated age Head: normocephalic, no masses, lesions, tenderness or abnormalities Eyes: conjunctiva are pink and non-injected, sclera clear Neck: supple, no adenopathy, no bruits, normal jugular venous pulse, no hepatojugular reflux Chest: normal shape and normal respiratory effort Lungs: clear to auscultation and percussion Cardiac Exam: - regular rate & rhythm, no murmurs gallops or rubs - normal S1, normal S2 Pulses: 2(+) throughout Abdomen: abdomen soft, non-tender, no abnormal masses and no hepatosplenomegaly Musculoskeletal: no gait disturbance, no joint inflammation, no deforming arthritis Extremities: no edema and no cyanosis Neuro: grossly normal exam Results & Data ([facility]) Vital Signs (Past 12 Hours) Vital Signs Temp Pulse Pulse Resp BP BP Pulse Ox 09/21/20 11:45 36.5 C 76 20 108/60 90 09/21/20 08:00 36.6 C 71 20 135/83 90 09/21/20 07:02 71 18 92 09/21/20 04:05 36.4 C L 61 21 116/68 90 09/21/20 00:20 66 Laboratory Results Laboratory Results - last 24 hr 09/20/20 09/20/20 09/20/20 14:38 15:50 18:40 PT INR Sodium Potassium Chloride Carbon Dioxide Anion Gap BUN Creatinine Est Cr Clr Drug Dosing Est GFR ( Amer) Est GFR (Non-Af Amer) BUN/Creatinine Ratio Glucose POC Glucose 146 H Calcium Magnesium Troponin I < 0.015 Adenovirus (PCR) Not Detected B. pertussis DNA (PCR) Not Detected B.parapertussis DNA PCR Not Detected C. pneumoniae DNA (PCR) Not Detected Coronavirus OC43 (PCR) Not Detected Coronavirus HKU1 (PCR) Not Detected Coronavirus 229E (PCR) Not Detected COVID-19 PCR Not Detected Coronavirus NL63 (PCR) Not Detected Human Metapneumovir PCR Not Detected Influenza Type A (PCR) Not Detected Influenza Type B (PCR) Not Detected M. pneumoniae (PCR) Not Detected Parainfluenza 1 (PCR) Not Detected Parainfluenza 2 (PCR) Not Detected Parainfluenza 3 (PCR) Not Detected Parainfluenza 4 (PCR) Not Detected RSV (PCR) Not Detected Entero/Rhino (PCR) DETECTED A* 09/20/20 09/21/20 09/21/20 19:47 07:24 07:24 PT 24.9 H INR 2.5 H Sodium 138 Potassium 3.6 Chloride 102 Carbon Dioxide 32 Anion Gap 4.0 BUN 22 H Creatinine 0.63 Est Cr Clr Drug Dosing 113.5 Est GFR ( Amer) 113.0 Est GFR (Non-Af Amer) 97.5 BUN/Creatinine Ratio 34.7 H Glucose 68 L POC Glucose Calcium 9.0 Magnesium 2.2 Troponin I < 0.015 Adenovirus (PCR) B. pertussis DNA (PCR) B.parapertussis DNA PCR C. pneumoniae DNA (PCR) Coronavirus OC43 (PCR) Coronavirus HKU1 (PCR) Coronavirus 229E (PCR) COVID-19 PCR Coronavirus NL63 (PCR) Human Metapneumovir PCR Influenza Type A (PCR) Influenza Type B (PCR) M. pneumoniae (PCR) Parainfluenza 1 (PCR) Parainfluenza 2 (PCR) Parainfluenza 3 (PCR) Parainfluenza 4 (PCR) RSV (PCR) Entero/Rhino (PCR) Diagnostic Findings EKGs revealed normal sinus rhythm and are within normal limits. Echocardiograms essentially show an anatomically normal heart. Medications Administered Current Inpatient Medications Acetaminophen (Acetaminophen 325 Mg Tab) 650 mg PO Q4H PRN PRN Reason: Pain or Fever Stop: 10/13/20 07:01 Last Admin: 09/18/20 12:44 Dose: 650 mg Documented by: Acetaminophen (Acetaminophen 500 Mg Tab) 1,000 mg PO Q8H PRN; Protocol PRN Reason: Pain Stop: 10/18/20 13:06 Last Admin: 09/21/20 08:39 Dose: 1,000 mg Documented by: Albuterol (Albuterol Hfa 8 Gm Inhaler) 2 puffs INH QIDR MARY Stop: 10/13/20 07:14 Last Admin: 09/21/20 11:10 Dose: 2 puffs Documented by: Albuterol (Albut/Ipratrop 3mg/0.5mg Neb 3 Ml Vial) 3 ml INH Q4H PRN PRN Reason: Shortness Of Breath Or Wheezing Stop: 10/13/20 07:01 Last Admin: 09/13/20 23:55 Dose: 3 ml Documented by: Amoxicillin/Clavulanate Potassium (Amoxicillin/Clavulanate 875 Mg Tab) 1 tab PO BIDM [facility] Stop: 09/23/20 16:59 Last Admin: 09/21/20 08:34 Dose: 1 tab Documented by: Cholestyramine Resin (Cholestyramine Light 4 Gm Pkt) 4 gm PO BID@1000,2200 [facility] Stop: 10/13/20 09:59 Last Admin: 09/21/20 10:24 Dose: 4 gm Documented by: Dextrose (Dextrose 50% 50 Ml Syringe) 25 - 50 ml IV UD PRN; Protocol PRN Reason: Hypoglycemia Protocol Stop: 10/20/20 08:32 Doxycycline Hyclate (Doxycycline Hyclate 100 Mg Cap) 100 mg PO BID [facility] Stop: 09/25/20 20:59 Last Admin: 09/21/20 08:34 Dose: 100 mg Documented by: Fluticasone Furoate (Fluticasone Furoate 200mcg 14 Puffs/Inhaler) 1 puffs INH DAILY [facility]; Protocol Stop: 10/13/20 08:59 Last Admin: 09/21/20 08:35 Dose: 1 puffs Documented by: Gabapentin (Gabapentin 300 Mg Cap) 300 mg PO BID [facility] Stop: 10/20/20 20:59 Last Admin: 09/21/20 08:33 Dose: 300 mg Documented by: Glucagon (Glucagon For Inj 1 Mg Vial) 1 mg SQ UD PRN; Protocol PRN Reason: Hypoglycemia Protocol Stop: 10/20/20 08:32 Glucose (Glucose 10 Tabs/Tube) 4 - 8 tabs PO UD PRN; Protocol PRN Reason: Hypoglycemia Protocol Stop: 10/20/20 08:32 Glucose (Glucose 40% Gel 15 Gm Tube) 15 - 30 gm PO UD PRN; Protocol PRN Reason: Hypoglycemia Protocol Stop: 10/20/20 08:32 Guaifenesin (Guaifenesin 600 Mg Tabcr) 600 mg PO Q12 [facility] Stop: 10/14/20 08:59 Last Admin: 09/21/20 08:33 Dose: 600 mg Documented by: Hydroxyzine HCl (Hydroxyzine Hcl 25 Mg Tab) 50 mg PO TID PRN PRN Reason: Anxiety Stop: 10/13/20 07:01 Last Admin: 09/20/20 23:52 Dose: 50 mg Documented by: Isosorbide Mononitrate (Isosorbide [place] Extended Rel 30 Mg Tabcr) 30 mg PO NOW ONE Stop: 09/21/20 12:01 Isosorbide Mononitrate (Isosorbide [place] Extended Rel 30 Mg Tabcr) 30 mg PO QAM [facility] Stop: 10/22/20 08:59 Lorazepam (Lorazepam 0.5 Mg Tab) 0.5 mg PO BID PRN PRN Reason: Anxiety Stop: 10/13/20 07:01 Last Admin: 09/21/20 08:43 Dose: 0.5 mg Documented by: Melatonin (Melatonin 3 Mg Tab) 3 mg PO HS PRN PRN Reason: Sleep Stop: 10/18/20 02:32 Last Admin: 09/18/20 23:18 Dose: 3 mg Documented by: Miscellaneous (Carbohydrates For Hypoglycemia ) 15 - 30 gm PO UD PRN PRN Reason: Hypoglycemia Protocol Stop: 10/20/20 08:32 Nitroglycerin (Nitroglycerin Sl 0.4 Mg/Tab Tab) 0.4 mg SL UD PRN PRN Reason: Chest Pain Stop: 10/13/20 07:01 Last Admin: 09/20/20 14:45 Dose: 0.4 mg Documented by: Nystatin (Nystatin Powder 15gm Btl) 1 appln EXT BID MARY Stop: 10/13/20 08:59 Last Admin: 09/21/20 08:35 Dose: 1 appln Documented by: Pantoprazole Sodium (Pantoprazole 40 Mg Tab) [facility]: 10/21/20 12:14 Phenol (Chloraseptic 1.4% Soln 180 Ml Btl) 2 sprays MT TID PRN PRN Reason: Sore Throat Stop: 10/20/20 13:59 Last Admin: 09/20/20 20:18 Dose: 2 sprays Documented by: Potassium Chloride (Potassium Chloride 20 Meq Tabcr) 20 meq PO QAM [facility] Stop: 10/17/20 08:59 Last Admin: 09/21/20 08:33 Dose: 20 meq Documented by: Prednisone (Prednisone 20 Mg Tab) 20 mg PO DAILY [facility] Stop: 10/22/20 08:59 Sertraline HCl (Sertraline Hcl 50 Mg Tablet) 150 mg PO DAILY [facility] Stop: 10/13/20 08:59 Last Admin: 09/21/20 08:34 Dose: 150 mg Documented by: Warfarin Sodium (Warfarin Sod 10 Mg Tab) 10 mg PO DAILY@1600 [facility] Stop: 10/17/20 15:59 Warfarin Sodium (Warfarin Sod 5 Mg Tab) 5 mg PO DAILY@1600 [facility] Stop: 10/20/20 15:59 Last Admin: 09/20/20 15:53 Dose: 5 mg Documented by:
[2020-09-21] MEDS: PANTOprazole 40 MG TAB PO SCH (12:51)
[2020-09-21] MEDS: WARFARIN SOD 5 MG TAB PO SCH (15:38)
[2020-09-21] MEDS: hydrOXYzine HCl 25 MG TAB PO PRN ×2 (15:38→22:15)
[2020-09-21] MEDS ORDERED: LORazepam 0.5 MG TAB PO ONE (17:24)
--- NOTE | 2020-09-21 18:11 | Hospitalist Progress Note ---
Date of Service September 21, 2020 Assessment & Plan (1) Altered mental status: Altered mental status Probable toxic / metabolic encephalopathy Toxicology screen negative. --MRI Brain: No acute intracranial abnormality, specifically there is no acute or subacute infarct. Encephalomalacia and gliosis related to remote infarcts of the bilateral frontal lobes and left insular cortex. Paranasal sinus disease as above with right maxillary sinus air-fluid level suggestive of acute sinusitis. No abnormal enhancement. --recently prescribed guaifenesin with codeine 09/04 --Normal thyroid function test --Also on hydroxyzine, lorazepam chronically PRN for anxiety --Currently oriented but couldn't recall events from prior week --Mental status back to baseline --Benzodiazepines need to be titrated off as able --Resolved Chest Pain Pulmonary Vascular Congestion on CXR Likely due to anxiety Troponin Negative EKG no signs of acute Ischemia ECHO: No segmental LV wall motion abnormality Trend Troponin NTG, Lasix PRN Appreciate Cardiology Input Added Imdur, PPI (2) Bronchitis: Acute Bronchitis Rhinovirus infection CXR:Possible mild pulmonary vascular congestion. Basilar opacity statistically atelectatic. Mild right hilar prominence, likely vascular. SARS-CoV-2 PCR negative. Sputum culture: Corynebacterium species Continue doxycycline IV Zosyn transition to Augmentin Continue supportive care (3) Sinusitis: MRI suggestive of right maxillary sinusitis Continue antibiotics as above (4) COPD with exacerbation: Acute COPD exacerbation Chronic oxygen dependency--on 3 L at baseline Continue prednisone, bronchodilators Continue supplemental oxygen--titrate as able to keep sats greater than 90% Continue prednisone taper (5) UTI (urinary tract infection): Urine culture: Klebsiella pneumoniae Completed antibiotic course with Zosyn (6) Abdominal wall cellulitis: Continue doxycycline Zosyn transition to Augmentin (7) Atrial fibrillation: H/O PAF. Continue Coumadin Monitor INR: 3.2>2.7>2.9>2.7>2.5 Adjust Coumadin dose as needed (8) Cerebrovascular disease: H/O Embolic strokes. H/O PAF and PFO. CT showed old strokes and possible pontine stroke new since 2017. MRI brain as above--no new CVA Appreciate neurology input Continue Coumadin Needs follow-up with neurology upon discharge (9) Chronic respiratory failure: Chronic hypoxic respiratory failure due to COPD. Continue supplemental Oxygen (10) Hypokalemia: Replace electrolytes as needed Monitor (11) Anxiety and depression: H/O Anxiety, Depression. Recently her On hydroxyzine, lorazepam PRN chronically for anxiety Appreciate Psychiatry Input Taper off of Benzos as able Further management deferred to psychiatry (12) Morbid obesity: BMI 45. Heart healthy diet. Chronic Pain Right/left Leg Pain Mild R knee ecchymosis High risk for Narcotic dependence Likely secondary to neuropathy/Osteoarthritis Imaging studies negative for any acute fractures Continue Neurontin (13) DVT prophylaxis: Coumadin (14) Discharge planning issues: Disposition May need SNF placement Family Medicine follow-up with Dr. Alexandra. Admission and Anticipated Discharge Date Admission Date: September 13, 2020 Subjective Patient is seen and examined at bedside Reports persistence of chest pain intermittently Continues to be anxious Cough about the same as yesterday Sore throat better today Chronic leg pain Discussed with cardiology today Review of Systems Review of Systems: All systems reviewed & are unremarkable except as noted in HPI & below Physical Exam Physical Exam: Physical Exam: Vitals signs as noted above General Appearance:Obese, no apparent distress Head: normocephalic, Atraumatic Eyes: normal inspection, EOMI Neck: supple, Trachea midline Respiratory/Chest: Decreased breath sounds, Minimal wheezes Cardiovascular: S1, S2, No murmur Abdomen/GI:Soft, Non tender, Bowel sounds present, +inguinal rash Extremities/Musculoskelatal:normal inspection, Trace pedal edema Neurologic/Psych:AAO, grossly no focal neurological deficits Skin: normal color, warm Results & Data Results & Data ([facility]) Vital Signs (Past 12 Hours) Vital Signs Temp Pulse Pulse Resp BP BP Pulse Ox 09/21/20 15:00 36.6 C 77 89 20 101/64 91 09/21/20 11:45 36.5 C 76 20 108/60 90 09/21/20 11:15 75 20 91 09/21/20 08:00 36.6 C 71 20 135/83 90 09/21/20 07:02 71 18 92 Laboratory Results [facility] 09/21/20 07:24 Sodium 138 Potassium 3.6 Chloride 102 Carbon Dioxide 32 BUN 22 H Creatinine 0.63 Glucose 68 L Calcium 9.0 Cardiac Enzymes 09/20/20 Range/Units 19:47 Troponin I < 0.015 (0-0.045) ng/ml
[2020-09-22] MEDS: ACETAMINOPHEN 500 MG TAB PO PRN (03:10)
[2020-09-22] MEDS: hydrOXYzine HCl 25 MG TAB PO PRN ×3 (03:55→16:42)
[2020-09-22] MEDS: ALBUTEROL HFA 8 GM INHALER INH SCH ×3 (07:10→14:53)
[2020-09-22] MEDS: NYSTATIN POWDER 15GM BTL EXT SCH (08:08)
[2020-09-22] MEDS: FLUTICASONE FUROATE 200MCG 14 PUFFS/INHALER INH SCH (08:09)
[2020-09-22] MEDS: SERTRALINE HCL 50 MG TABLET PO SCH (08:10)
[2020-09-22] MEDS: GABAPENTIN 300 MG CAP PO SCH (08:10)
[2020-09-22] MEDS: POTASSIUM CHLORIDE CRTAB 20 MEQ TABCR PO SCH (08:10)
[2020-09-22] MEDS: DOXYCYCLINE HYCLATE 100 MG CAP PO SCH (08:10)
[2020-09-22] MEDS: PANTOprazole 40 MG TAB PO SCH (08:10)
[2020-09-22] MEDS: AMOXICILLIN/CLAVULANATE 875 MG TAB PO SCH (08:10)
[2020-09-22] MEDS: guaiFENesin 600 MG TABCR PO SCH (08:11)
[2020-09-22] MEDS: LORazepam 0.5 MG TAB PO PRN (08:14)
[2020-09-22] MEDS ORDERED: CAPSAICIN CR 0.075% 60 GM TUBE EXT PRN (08:45)
[2020-09-22] MEDS ORDERED: ISOSORBIDE MONO EXTENDED REL 30 MG TABCR PO SCH (09:00)
[2020-09-22] MEDS ORDERED: predniSONE 20 MG TAB PO SCH (09:00)
[2020-09-22 09:03] LABS: Prothrombin Time 30.3 Seconds (9.0-12.0)
[2020-09-22 09:06] LABS: BUN Creatinine Ratio 36.1 (10-20); Creatinine Clr Calc Pharmacy 90.2 ml/min; Est GFR (African American) 94.3; Est GFR (Non-African American) 81.4; Potassium 3.6 mmol/L (3.5-5.1)
[2020-09-22] MEDS ORDERED: ONDANSETRON INJ 2 MG/ML 2 ML VIAL IV PRN (10:47)
[2020-09-22] MEDS ORDERED: ONDANSETRON INJ 2 MG/ML 2 ML VIAL ONE (10:50)
--- NOTE | 2020-09-22 11:08 | Cardiology Progress Note ---
Date of Service September 22, 2020 Assessment & Plan (1) Anxiety and depression: (2) Morbid obesity: (3) Cerebrovascular disease: (4) Altered mental status: Currently I would continue with Imdur and Protonix. The patient is stable from a cardiac standpoint. Admission and Anticipated Discharge Date Admission Date: September 13, 2020 Subjective No new complaints today. The Imdur and Protonix have improved her chest and arm discomfort. Review of Systems Review of Systems: All systems reviewed & are unremarkable except as noted in Subjective Physical Exam Physical Exam: General: no acute distress and stated age Head: normocephalic, no masses, lesions, tenderness or abnormalities Eyes: conjunctiva are pink and non-injected, sclera clear Neck: supple, no adenopathy, no bruits, normal jugular venous pulse, no hepatojugular reflux Chest: normal shape and normal respiratory effort Lungs: clear to auscultation and percussion Cardiac Exam: - regular rate & rhythm, no murmurs gallops or rubs - normal S1, normal S2 Pulses: 2(+) throughout Abdomen: abdomen soft, non-tender, no abnormal masses and no hepatosplenomegaly Musculoskeletal: no gait disturbance, no joint inflammation, no deforming arthritis Extremities: no edema and no cyanosis Neuro: grossly normal exam Results & Data ([facility]) Vital Signs (Past 12 Hours) Vital Signs Temp Pulse Pulse Resp BP BP Pulse Ox 09/22/20 07:12 61 16 97 09/22/20 07:00 36.5 C 73 20 107/65 93 09/22/20 03:04 36.4 C L 75 18 100/68 92 09/22/20 00:00 70 Laboratory Results Laboratory Results - last 24 hr 09/21/20 09/22/20 09/22/20 21:14 05:31 08:17 PT 30.3 H INR 3.0 H Sodium Potassium Chloride Carbon Dioxide Anion Gap BUN Creatinine Est Cr Clr Drug Dosing Est GFR ( Amer) Est GFR (Non-Af Amer) BUN/Creatinine Ratio Glucose POC Glucose 110 H 83 Calcium 09/22/20 08:17 PT INR Sodium 138 Potassium 3.6 Chloride 102 Carbon Dioxide 28 Anion Gap 8.0 BUN 28 H Creatinine 0.79 Est Cr Clr Drug Dosing 90.2 Est GFR ( Amer) 94.3 Est GFR (Non-Af Amer) 81.4 BUN/Creatinine Ratio 36.1 H Glucose 120 H POC Glucose Calcium 9.0 Medications Administered Current Inpatient Medications Acetaminophen (Acetaminophen 325 Mg Tab) 650 mg PO Q4H PRN PRN Reason: Pain or Fever Stop: 10/13/20 07:01 Last Admin: 09/18/20 12:44 Dose: 650 mg Documented by: Acetaminophen (Acetaminophen 500 Mg Tab) 1,000 mg PO Q8H PRN; Protocol PRN Reason: Pain Stop: 10/18/20 13:06 Last Admin: 09/22/20 03:10 Dose: 1,000 mg Documented by: Albuterol (Albuterol Hfa 8 Gm Inhaler) 2 puffs INH QIDR MARY Stop: 10/13/20 07:14 Last Admin: 09/22/20 11:02 Dose: 2 puffs Documented by: Albuterol (Albut/Ipratrop 3mg/0.5mg Neb 3 Ml Vial) 3 ml INH Q4H PRN PRN Reason: Shortness Of Breath Or Wheezing Stop: 10/13/20 07:01 Last Admin: 09/13/20 23:55 Dose: 3 ml Documented by: Amoxicillin/Clavulanate Potassium (Amoxicillin/Clavulanate 875 Mg Tab) 1 tab PO BIDM MARY Stop: 09/23/20 16:59 Last Admin: 09/22/20 08:10 Dose: 1 tab Documented by: Capsaicin (Capsaicin Cr 0.075% 60 Gm Tube) 1 appln EXT BID PRN PRN Reason: Pain Stop: 10/22/20 08:44 Cholestyramine Resin (Cholestyramine Light 4 Gm Pkt) 4 gm PO BID@1000,2200 MARY Stop: 10/13/20 09:59 Last Admin: 09/21/20 10:24 Dose: 4 gm Documented by: Dextrose (Dextrose 50% 50 Ml Syringe) 25 - 50 ml IV UD PRN; Protocol PRN Reason: Hypoglycemia Protocol Stop: 10/20/20 08:32 Doxycycline Hyclate (Doxycycline Hyclate 100 Mg Cap) 100 mg PO BID MARY Stop: 09/25/20 20:59 Last Admin: 09/22/20 08:10 Dose: 100 mg Documented by: Fluticasone Furoate (Fluticasone Furoate 200mcg 14 Puffs/Inhaler) 1 puffs INH DAILY MARY; Protocol Stop: 10/13/20 08:59 Last Admin: 09/22/20 08:09 Dose: 1 puffs Documented by: Gabapentin (Gabapentin 300 Mg Cap) 300 mg PO BID MARY Stop: 10/20/20 20:59 Last Admin: 09/22/20 08:10 Dose: 300 mg Documented by: Glucagon (Glucagon For Inj 1 Mg Vial) 1 mg SQ UD PRN; Protocol PRN Reason: Hypoglycemia Protocol Stop: 10/20/20 08:32 Glucose (Glucose 10 Tabs/Tube) 4 - 8 tabs PO UD PRN; Protocol PRN Reason: Hypoglycemia Protocol Stop: 10/20/20 08:32 Glucose (Glucose 40% Gel 15 Gm Tube) 15 - 30 gm PO UD PRN; Protocol PRN Reason: Hypoglycemia Protocol Stop: 10/20/20 08:32 Guaifenesin (Guaifenesin 600 Mg Tabcr) 600 mg PO Q12 MARY Stop: 10/14/20 08:59 Last Admin: 09/22/20 08:11 Dose: 600 mg Documented by: Hydroxyzine HCl (Hydroxyzine Hcl 25 Mg Tab) 50 mg PO TID PRN PRN Reason: Anxiety Stop: 10/13/20 07:01 Last Admin: 09/22/20 10:51 Dose: 50 mg Documented by: Isosorbide Mononitrate (Isosorbide [place] Extended Rel 30 Mg Tabcr) 30 mg PO QAM MARY Stop: 10/22/20 08:59 Last Admin: 09/22/20 08:11 Dose: 30 mg Documented by: Lorazepam (Lorazepam 0.5 Mg Tab) 0.5 mg PO BID PRN PRN Reason: Anxiety Stop: 10/13/20 07:01 Last Admin: 09/22/20 08:14 Dose: 0.5 mg Documented by: Melatonin (Melatonin 3 Mg Tab) 3 mg PO HS PRN PRN Reason: Sleep Stop: 10/18/20 02:32 Last Admin: 09/18/20 23:18 Dose: 3 mg Documented by: Miscellaneous (Carbohydrates For Hypoglycemia ) 15 - 30 gm PO UD PRN PRN Reason: Hypoglycemia Protocol Stop: 10/20/20 08:32 Nitroglycerin (Nitroglycerin Sl 0.4 Mg/Tab Tab) 0.4 mg SL UD PRN PRN Reason: Chest Pain Stop: 10/13/20 07:01 Last Admin: 09/20/20 14:45 Dose: 0.4 mg Documented by: Nystatin (Nystatin Powder 15gm Btl) 1 appln EXT BID [facility] Stop: 10/13/20 08:59 Last Admin: 09/22/20 08:08 Dose: 1 appln Documented by: Ondansetron HCl (Ondansetron Inj 2 Mg/Ml 2 Ml Vial) 4 mg IV Q6H PRN PRN Reason: Nausea Stop: 10/22/20 10:46 Pantoprazole Sodium (Pantoprazole 40 Mg Tab) 40 mg PO QAM [facility] Stop: 10/21/20 12:14 Last Admin: 09/22/20 08:10 Dose: 40 mg Documented by: Phenol (Chloraseptic 1.4% Soln 180 Ml Btl) 2 sprays MT TID PRN PRN Reason: Sore Throat Stop: 10/20/20 13:59 Last Admin: 09/20/20 20:18 Dose: 2 sprays Documented by: Potassium Chloride (Potassium Chloride 20 Meq Tabcr) 20 meq PO [facility] Stop: 10/17/20 08:59 Last Admin: 09/22/20 08:10 Dose: 20 meq Documented by: Prednisone (Prednisone 20 Mg Tab) 20 mg PO DAILY [facility] Stop: 10/22/20 08:59 Last Admin: 09/22/20 08:11 Dose: 20 mg Documented by: Sertraline HCl (Sertraline Hcl 50 Mg Tablet) 150 mg PO DAILY [facility] Stop: 10/13/20 08:59 Last Admin: 09/22/20 08:10 Dose: 150 mg Documented by: Warfarin Sodium (Warfarin Sod 10 Mg Tab) 10 mg PO DAILY@1600 [facility] Stop: 10/17/20 15:59 Warfarin Sodium (Warfarin Sod 3 Mg Tab) 3 mg PO DAILY@1600 [facility] Stop: 10/22/20 15:59
--- NOTE | 2020-09-22 12:50 | Hospitalist Progress Note ---
Date of Service September 22, 2020 Assessment & Plan (1) Altered mental status: Altered mental status Probable toxic / metabolic encephalopathy Toxicology screen negative. --MRI Brain: No acute intracranial abnormality, specifically there is no acute or subacute infarct. Encephalomalacia and gliosis related to remote infarcts of the bilateral frontal lobes and left insular cortex. Paranasal sinus disease as above with right maxillary sinus air-fluid level suggestive of acute sinusitis. No abnormal enhancement. --recently prescribed guaifenesin with codeine 09/04 --Normal thyroid function test --Also on hydroxyzine, lorazepam chronically PRN for anxiety --Currently oriented but couldn't recall events from prior week --Mental status back to baseline --Benzodiazepines need to be titrated off as able --Resolved Chest Pain Pulmonary Vascular Congestion on CXR Likely due to anxiety Troponin Negative EKG no signs of acute Ischemia ECHO: No segmental LV wall motion abnormality Trend Troponin NTG, Lasix PRN Appreciate Cardiology Input Added Imdur, PPI Improved (2) Bronchitis: Acute Bronchitis Rhinovirus infection CXR:Possible mild pulmonary vascular congestion. Basilar opacity statistically atelectatic. Mild right hilar prominence, likely vascular. SARS-CoV-2 PCR negative. Sputum culture: Corynebacterium species Continue doxycycline IV Zosyn transition to Augmentin Continue supportive care Saturating well on baseline supplemental oxygen (3) Sinusitis: MRI suggestive of right maxillary sinusitis Continue antibiotics as above (4) COPD with exacerbation: Acute COPD exacerbation Chronic oxygen dependency--on 3-4 L at baseline Continue prednisone, bronchodilators Continue supplemental oxygen Continue prednisone taper (5) UTI (urinary tract infection): Urine culture: Klebsiella pneumoniae Completed antibiotic course with Zosyn (6) Abdominal wall cellulitis: Continue doxycycline Zosyn transition to Augmentin (7) Atrial fibrillation: H/O PAF. Continue Coumadin Monitor INR: 3.2>2.7>2.9>2.7>2.5>3.0 Adjust Coumadin dose as needed Plan to give 3mg Coumadin today (8) Cerebrovascular disease: H/O Embolic strokes. H/O PAF and PFO. CT showed old strokes and possible pontine stroke new since 2017. MRI brain as above--no new CVA Appreciate neurology input Continue Coumadin Needs follow-up with neurology upon discharge (9) Chronic respiratory failure: Chronic hypoxic respiratory failure due to COPD. Continue supplemental Oxygen (10) Hypokalemia: Replace electrolytes as needed Monitor (11) Anxiety and depression: H/O Anxiety, Depression. Recently her On hydroxyzine, lorazepam PRN chronically for anxiety Appreciate Psychiatry Input Taper off of Benzos as able Further management deferred to psychiatry (12) Morbid obesity: BMI 45. Heart healthy diet. Chronic Pain Right/left Leg Pain Mild R knee ecchymosis High risk for Narcotic dependence Likely secondary to neuropathy/Osteoarthritis Imaging studies negative for any acute fractures Continue Neurontin 300mg BID (13) DVT prophylaxis: Coumadin (14) Discharge planning issues: Disposition Plan to discharge to Rehab Facility Family Medicine follow-up with Dr. Alexandra. Admission and Anticipated Discharge Date Admission Date: September 13, 2020 Subjective Patient is seen and examined at bedside Reports nausea but denies vomiting Chest pain and sore throat improved Less cough Chronic leg pain, anxiety No other complaints Plan to discharge to rehab facility today Review of Systems Review of Systems: All systems reviewed & are unremarkable except as noted in HPI & below Physical Exam Physical Exam: Physical Exam: Vitals signs as noted above General Appearance:Obese, no apparent distress Head: normocephalic, Atraumatic Eyes: normal inspection, EOMI Neck: supple, Trachea midline Respiratory/Chest: Decreased breath sounds, Scattered wheezes Cardiovascular: S1, S2, No murmur Abdomen/GI:Soft, Non tender, Bowel sounds present, +inguinal rash Extremities/Musculoskelatal:normal inspection, Trace pedal edema Neurologic/Psych:AAO, grossly no focal neurological deficits Skin: normal color, warm Results & Data Results & Data ([facility]) Vital Signs (Past 12 Hours) Vital Signs Temp Pulse Resp BP BP Pulse Ox 09/22/20 11:02 77 20 91 09/22/20 07:12 61 16 97 09/22/20 07:00 36.5 C 73 20 107/65 93 09/22/20 03:04 36.4 C L 75 18 100/68 92 Laboratory Results [facility] 09/22/20 08:17 Sodium 138 Potassium 3.6 Chloride 102 Carbon Dioxide 28 BUN 28 H Creatinine 0.79 Glucose 120 H Calcium 9.0
--- NOTE | 2020-09-22 14:34 | Discharge Summary ---
Date of Service September 22, 2020 Admission HPI Per Admitting Provider CHIEF COMPLAINT: Altered mental status. HISTORY OF PRESENT ILLNESS: This is a 60-year-old female with past medical history significant for hypothyroidism, COPD, obstructive sleep apnea, oxygen dependent, idiopathic cardiomyopathy, history of patent foramen ovale, history of multiple CVAs on Coumadin, morbid obesity, history of narcotic addiction, history of questionable von Willebrand disease, history of depression, ongoing tobacco use disorder, generalized anxiety disorder. The patient lives alone at home. She has caregivers. She says she has caregivers everyday from 9:00 to 5:00 and son lives in town. Was brought in because of question of altered mental status. The patient currently is alert and oriented, answering appropriately, but she was somewhat confused at home. On the imaging studies, CAT scan is showing possible [id number] stroke and also UTI and abdominal wall cellulitis. Currently resting comfortably and hemodynamically stable, alert and oriented to name, place, and time. She is somewhat difficult with her date, but could tell the year and month. She says she has some left-sided weakness from the previous stroke. She says had about nine strokes and that is why she is on Coumadin. She said recently she had a stroke and she was in [facility]. She is noncompliant with Coumadin. Says she is depressed and she does not take Coumadin regularly as she is supposed to take and today the INR is only 1. The patient states she ambulates without any support. She can swallow food without any difficulty. Speech is clear. No facial droop is seen. Denies any headache, no blurred visions, no earache, no runny nose, no sore throat, no loss of sense of smell or taste. She says she is not exposed to any COVID, and says the caregivers are not sick. She was just recently treated with azithromycin for her cough. She says she still has some cough, but not bringing phlegm anymore. Denies any fevers, but feels cold. Denies any chest pain. She says she is already short of breath because of her COPD and that has not changed. Denies any nausea, vomiting. No abdominal pain. She says she always has diarrhea. Denies any blood in the stool or black stools. She says she is not micturating much. No swelling in the legs seen. Admission Exam Per Admitting Provider PHYSICAL EXAMINATION: GENERAL: The patient is morbidly obese, not in acute distress. VITAL SIGNS: Temperature 37.2, pulse 67, respiratory rate 20, blood pressure 119/59, oxygen 97% on 3 liters. HEENT: Atraumatic. Pupils equal, round, and reactive to light. Extraocular muscles intact. Oral mucosa moist. NECK: No JVD, no neck masses seen. CARDIOVASCULAR: S1, S2 heard, regular rate and rhythm, no murmur, no gallop. RESPIRATORY SYSTEM: Normal AP diameter. No accessory muscle use. Bilateral coarse rhonchi and occasional wheezing heard. ABDOMEN: Soft, bowel sounds present. Erythematous rash seen in the folds of the abdomen and also extending into groins. No distention. CENTRAL NERVOUS SYSTEM: Cranial nerves II-XII grossly intact. No facial droop. Speech clear. Alert and oriented. Extraocular muscles intact. Moves extremities. Coordination was normal. Power 4/5 to 5/5 in right extremities, 3/5 to 4/5 in left extremities. Sensation is intact. Position sense intact. EXTREMITIES: No edema, no erythema seen. Principal Diagnosis Acute Toxic/Metabolic Encephalopathy Acute Bronchitis Acute COPD exacerbation Anxiety and depression Sinusitis Rhinovirus infection Urinary Tract Infection Abdominal wall cellulitis Chronic Pain syndrome Possible Polypharmacy Discharge Data Allergies Allergy/AdvReac Type Severity Reaction Status Date / Time aspirin Allergy Unknown TAKES Verified 09/12/20 23:23 COUMADIN salicylates AdvReac Unknown ?DUE TO Verified 09/12/20 23:23 COUMADIN? Consultations 09/13/20 00:18 ED Decision to Admit Stat 09/13/20 07:02 Consult Case Management - Discharge Planning Routine Consult Case Management - Discharge Planning Routine 09/13/20 08:00 Consult Neurology Routine 09/17/20 08:00 Consult Psychiatry Routine 09/21/20 11:07 Consult Cardiology Routine Procedures Performed MRI Brain: No acute intracranial abnormality, specifically there is no acute or subacute infarct. Encephalomalacia and gliosis related to remote infarcts of the bilateral frontal lobes and left insular cortex. Paranasal sinus disease as above with right maxillary sinus air-fluid level suggestive of acute sinusitis. No abnormal enhancement. CXR:Possible mild pulmonary vascular congestion. Basilar opacity statistically atelectatic. Mild right hilar prominence, likely vascular. CT ABD: 1. No bowel wall thickening or obstruction. 2. Normal appendix. 3. Stable mild fullness within the left renal collecting system without lorin hydronephrosis. No ureteral stones identified. 4. Cholecystectomy. Ordered Studies 09/12/20 21:59 CT head/brain wo con Urgent 09/12/20 22:06 CT abd pelvis IV con only Urgent 09/13/20 07:00 MR brain wo/w con Urgent 09/13/20 07:02 US carotid doppler BI Routine 09/13/20 18:18 US venous doppler LE BI Urgent Hospital Course (1) Altered mental status: Altered mental status Probable toxic / metabolic encephalopathy Toxicology screen negative. --MRI Brain: No acute intracranial abnormality, specifically there is no acute or subacute infarct. Encephalomalacia and gliosis related to remote infarcts of the bilateral frontal lobes and left insular cortex. Paranasal sinus disease as above with right maxillary sinus air-fluid level suggestive of acute sinusitis. No abnormal enhancement. --recently prescribed guaifenesin with codeine 09/04 --Normal thyroid function test --Also on hydroxyzine, lorazepam chronically PRN for anxiety --Currently oriented but couldn't recall events from prior week --Mental status back to baseline --Benzodiazepines need to be titrated off as able --Resolved Chest Pain Pulmonary Vascular Congestion on CXR Likely due to anxiety Troponin Negative EKG no signs of acute Ischemia ECHO: No segmental LV wall motion abnormality Trend Troponin NTG, Lasix PRN Appreciate Cardiology Input Added Imdur, PPI Improved (2) Bronchitis: Acute Bronchitis Rhinovirus infection CXR:Possible mild pulmonary vascular congestion. Basilar opacity statistically atelectatic. Mild right hilar prominence, likely vascular. SARS-CoV-2 PCR negative. Sputum culture: Corynebacterium species Continue doxycycline IV Zosyn transition to Augmentin Continue supportive care Saturating well on baseline supplemental oxygen (3) Sinusitis: MRI suggestive of right maxillary sinusitis Continue antibiotics as above (4) COPD with exacerbation: Acute COPD exacerbation Chronic oxygen dependency--on 3-4 L at baseline Continue prednisone, bronchodilators Continue supplemental oxygen Continue prednisone taper (5) UTI (urinary tract infection): Urine culture: Klebsiella pneumoniae Completed antibiotic course with Zosyn (6) Abdominal wall cellulitis: Continue doxycycline Zosyn transition to Augmentin (7) Atrial fibrillation: H/O PAF. Continue Coumadin Monitor INR: 3.2>2.7>2.9>2.7>2.5>3.0 Adjust Coumadin dose as needed Plan to give 3mg Coumadin today (8) Cerebrovascular disease: H/O Embolic strokes. H/O PAF and PFO. CT showed old strokes and possible pontine stroke new since 2017. MRI brain as above--no new CVA Appreciate neurology input Continue Coumadin Needs follow-up with neurology upon discharge (9) Chronic respiratory failure: Chronic hypoxic respiratory failure due to COPD. Continue supplemental Oxygen (10) Hypokalemia: Replace electrolytes as needed Monitor (11) Anxiety and depression: H/O Anxiety, Depression. Recently her On hydroxyzine, lorazepam PRN chronically for anxiety Appreciate Psychiatry Input Taper off of Benzos as able Further management deferred to psychiatry (12) Morbid obesity: BMI 45. Heart healthy diet. Chronic Pain Right/left Leg Pain Mild R knee ecchymosis High risk for Narcotic dependence Likely secondary to neuropathy/Osteoarthritis Imaging studies negative for any acute fractures Continue Neurontin 300mg BID (13) DVT prophylaxis: Coumadin (14) Discharge planning issues: Disposition Plan to discharge to Rehab Facility Family Medicine follow-up with Dr. Alexandra. Total Time Total Time Spent Total Time Spent (In Minutes): 45 minutes Total Time Includes: Examination of the Patient, Discharge Planning, Medication Reconciliation, Communication With Other Providers and Other Discharge Plan Discharge Items Patient Disposition: Transfer Inpatient Rehab Fac Reason For Visit: AMS Discharge Diagnosis: Acute Toxic/Metabolic Encephalopathy Acute Bronchitis Acute COPD exacerbation Anxiety and depression Sinusitis Rhinovirus infection Urinary Tract Infection Abdominal wall cellulitis Chronic Pain syndrome Possible Polypharmacy Condition on Discharge: Fair Activity: Per Instructions section Exercise/Sports: Gradually increase as tolerated Non-emergency contact: Primary Care Provider, Neurologist and Psychiatrist Call non-emergency contact if: you have any medication questions, your symptoms worsen, your pain is not controlled, your pain is worsening, your pain is unusual for you, you have a fever, your wound has increased redness, your wound has increased drainage and your wound pain has increased Follow-up/Referrals: Roger Alexandra MD [Primary Care Provider] - Diet: Heart Healthy Addtl Attending Provider Instructions: Follow-up with your primary care physician Dr. Alexandra in 1 week upon discharge from rehab facility Follow-up with your neurologist Dr. Hina Vaughan in 4 to 6 weeks Follow-up with your psychiatrist in 4 to 6 weeks Follow-up with your physician for further recommendations on Coumadin dose based on your INR results. Complete the antibiotic course and Prednisone taper course as advised Start taking prednisone 20mg daily for 2 days and then 10mg daily for 3 days and STOP Get PT/INR checked on 09/23/20 and adjust your Coumadin dose according to your blood test results per recommendation from your physician at rehab facility. Your PT/INR is 3.0 today (09/22/20). You were given 3 mg Coumadin today. Recommendations from your Psychiatrist: Your mirtazapine is discontinued given inconsistent use Taper off of lorazepam as able Minimize use of multiple medications to control anxiety given risk for polypharmacy. Encourage behavioral strategies Can continue sertraline 150mg daily Seek immediate medical attention if your symptoms reoccur or worsen Pending Studies at Discharge: Yes Studies:: PT/INR on 09/23/20 Stand-Alone Forms: My [facility] [employer] Skilled Items Patient informed of condition?: Yes DNR: No Discharge Level of Care: Acute rehab Communicable Disease: Yes Discharge Prognosis: Stable Lines: None Urinary Catheter: No Medications and DC Order Prescriptions: New amoxicillin-pot clavulanate [Augmentin] 875-125 mg Tablet 1 tab PO BIDM Qty: 0 RF: 0 doxycycline hyclate 100 mg Capsule 100 mg PO BID Qty: 0 RF: 0 isosorbide mononitrate 30 mg Tablet Extended Release 24 Hr 30 mg PO QAM Qty: 0 RF: 0 potassium chloride [Klor-Con M20] 20 mEq Tablet,Er Particles/Crystals 20 meq PO QAM Qty: 0 RF: 0 pantoprazole 40 mg Tablet,Delayed Release (Dr/Ec) 40 mg PO QAM Qty: 0 RF: 0 Sore Throat (phenol) 1.4 % Aerosol,[place] 2 spray MT TID PRNQty: 0 RF: 0 guaifenesin [Mucinex] 600 mg Tablet Extended Release 12hr 600 mg PO Q12 Qty: 0 RF: 0 prednisone 10 mg tablet 10 mg PO UD Qty: 7 RF: 0 Continued warfarin 10 mg tablet See Rx Instructions .ROUTE .COMPLEX RF: 0 sertraline 100 mg tablet 150 mg PO DAILY RF: 0 hydroxyzine HCl 50 mg tablet 50 mg PO TID PRN (Reason: Anxiety) RF: 0 lorazepam 0.5 mg tablet 0.5 mg PO BID PRN (Reason: Anxiety) RF: 0 Flovent HFA 110 mcg/actuation HFA aerosol inhaler 2 puff INHALATION BID RF: 0 acetaminophen [Tylenol] 325 mg Tablet 325 - 650 mg PO DIRECTED PRN (Reason: Pain) RF: 0 ipratropium-albuterol 0.5 mg-3 mg(2.5 mg base)/3 mL Solution For Nebulization 3 ml INHALATION Q4H PRN (Reason: Shortness Of Breath Or Wheezing) RF: 0 albuterol sulfate 2.5 mg /3 mL (0.083 %) Solution For Nebulization 2.5 mg INHALATION Q4H PRN (Reason: Wheezing) RF: 0 ondansetron HCl [Zofran] 4 mg Tablet 4 mg PO Q8H PRN (Reason: Nausea) RF: 0 albuterol sulfate [ProAir HFA] 90 mcg/actuation Hfa Aerosol Inhaler 2 puff INHALATION QID RF: 0 Questran Light 4 gram Powder 4 g PO BID RF: 0 Changed gabapentin 600 mg tablet 300 mg PO BID Qty: 0 RF: 0 Discontinued mirtazapine 30 mg tablet 30 mg PO HS RF: 0 codeine-guaifenesin 10-100 mg/5 mL liquid 5 ml PO Q4H PRN (Reason: Cough) RF: 0 Discharge Orders: Discharge Order (Routine); Ordered 09/22/20 Ordered By: Luis Curry Admission Data Admit Date/Time: 09/13/20 01:10 Attending Provider: Luis Curry Admit Provider: Maged Slade Primary Care Provider: Roger Alexandra Other Providers: Maged Slade ; Hina Lion ; Christoph Enriquez ; Hina Vaughan ; Jesus Peraza ; Brianna Nickerson ; [facility] ; Stuart Branch Other Interventions: Discharge Summary Assessment (RN) Last Done: 09/22/20 13:36 PSY Interdisciplinary Discharge Planning Last Done: 09/17/20 13:30
[2020-09-22] MEDS ORDERED: WARFARIN SOD 3 MG TAB PO SCH (16:00)
== END 2020-09-22 17:24 | DRG 602 ==
LOC: ED 21:54 → SUATTDRO 09-13 01:10 → 2E 09-13 01:10 → 2N 09-15 22:17 → 2W 09-20 19:49

== ENCOUNTER 2021-05-20 12:21 | Inpatient (IN) ==
[2021-05-20 13:25] LABS: Basophils # (auto) 0.02 K/uL (0-0.2); Basophils % (auto) 0.2 %; Eosinophils # (auto) 0.15 K/uL (0-0.5); Eosinophils % (auto) 1.5 %; Hematocrit (blood only) 35.4 % (37-47); Hemoglobin 11.2 g/dL (12.0-16.0); Immature Granulocytes # (auto) 0.02 K/uL (0.00-0.02); Immature Granulocytes % (auto) 0.2 %; Lymphocytes # (auto) 1.82 K/uL (1.2-3.4); Lymphocytes % (auto) 18.7 %; Mean Corpuscular Hemoglobin 28.4 pg (25-34); Mean Corpuscular Hgb Conc 31.6 g/dL (32-36); Mean Corpuscular Volume 89.6 fL (80-100); Mean Platelet Volume 8.4 fL (7.4-10.4); Monocytes % (auto) 7.2 %; Neutrophils # (auto) 7.02 K/uL (1.4-6.5); Neutrophils % (auto) 72.2 %; Platelet Count 328 K/uL (130-400); RDW Coefficient of Variation 17.9 % (11.5-14.5); RDW Standard Deviation 59.2 fL (36.4-46.3); Red Blood Count 3.95 M/uL (4.2-5.4); White Blood Count 9.73 K/uL (4.8-10.8)
--- NOTE | 2021-05-20 13:32 | XRay Report ---
XR chest 1V portable HISTORY: Shortness of breath. COMPARISON: Chest and abdominal series 11/08/2020. FINDINGS: No pneumothorax. No pleural effusions. No focal lung consolidations to suggest pneumonia. N o evidence for pulmonary edema. The heart is normal in size. There is a mildly tortuous thoracic aort a. IMPRESSION: No acute process. ACT 112: Negative or not required by law. Electronically signed by: Otto Hendrickson M.D. 05/20/2021 1:31 PM
[2021-05-20 13:46] LABS: Albumin Level 2.8 gm/dl (3.4-5.0); BUN Creatinine Ratio 18.2 (10-20); Blood Urea Nitrogen 10 mg/dl (7-18); Calcium 8.2 mg/dl (8.5-10.1); Carbon Dioxide 29 mmol/L (21-32); Chloride 105 mmol/L (98-107); Creatinine Clr Calc Pharmacy 128.1 ml/min; Est GFR (African American) 116.8 ml/min; Est GFR (Non-African American) 100.8 ml/min; Glucose 97 mg/dl (70-99); Magnesium 2.1 mg/dl (1.8-2.4); Partial Thromboplastin Ratio 2.7; Potassium 3.4 mmol/L (3.5-5.1); Prothrombin Time 68.8 Seconds (9.0-12.0); Sodium 139 mmol/L (136-145)
[2021-05-20 13:49] LABS: Partial Thromboplastin Time 71.3 Seconds (21.0-31.0)
[2021-05-20 13:51] LABS: Alanine Aminotransferase 9 U/L (12-78); Albumin Globulin Ratio 0.7 (0.9-2); Alkaline Phosphatase 73 U/L (45-117); Aspartate Aminotransferase 8 U/L (15-37); Bilirubin,Total 0.3 mg/dl (0.2-1); Globulin 3.8 gm/dl (2.5-4.0); Total Protein 6.6 gm/dl (6.4-8.2); Troponin I < 0.015 ng/ml (0-0.045)
[2021-05-20] MEDS ORDERED: ALBUT/IPRATROP 3MG/0.5MG NEB 3 ML VIAL NEB STA ×2 (13:51→15:24)
[2021-05-20] MEDS ORDERED: dexAMETHasone**PF** 10 MG/ML VIAL IV ONE (13:51)
--- NOTE | 2021-05-20 14:03 | Emergency Department Note ---
Impression & Plan Chronic respiratory failure, COPD with exacerbation, Hypoxia ED Provider Note NAME: YAZAN MCKEON AGE: 60 SEX: F : 1960 ARRIVES VIA: Ambulance INFORMANT: Patient, ED PROVIDER(S): Padilla Anthony DO CHIEF COMPLAINT: Shortness of breath HPI: The patient is a 60-year-old female who does have a history of tobacco use but quit about 8 months ago who presented to the emergency department for an evaluation of shortness of breath. The patient states that she has had symptoms that have been worsening through the weekend. They became significantly worse over the course the last 48 hours. She denies having any hemoptysis but notices productive cough and fever. She also notices headache and malaise. She has been complaining of chest pain as well as back pain. She denies having any rash or exposures to ticks. She is not been seen by her family doctor for these acute symptoms but is seen her family doctor in the past for similar complaints. She denies having any vomiting but always has some degree of GI symptoms including diarrhea. She notices no black or bloody bowel movements. She does currently take blood thinners for atrial fibrillation. She also has a history of COPD and states that she has been compliant with her outpatient medications. She is not been tested for COVID-19 recently and is not immunized against COVID- 19. ROS: See above HPI for pertinent positives & negatives. A total of 10 systems reviewed and were otherwise negative. PAST MEDICAL HISTORY: See Below PAST SURGICAL HISTORY: See Below FAMILY HISTORY: See Below SOCIAL HISTORY: See Below HOME MEDICATIONS: See Below ALLERGIES: See Below VITALS: See Below PHYSICAL EXAMINATION: GENERAL: The patient is awake and alert. She is nonanxious appearing. EYES: The conjunctivae are clear. The pupils are round and reactive. EARS, NOSE, MOUTH AND THROAT: The nose is without any evidence of any deformity. NECK: The neck is nontender and supple. RESPIRATORY: Diminished breath sounds are noted throughout. There was mild conversational dyspnea. Wheezing was noted in all lung mena. CARDIOVASCULAR: Regular rate and rhythm noted there no murmurs rubs or gallops normal S1 normal S2. GASTROINTESTINAL: The abdomen is soft. Abdomen is nontender. MUSCULOSKELETAL/EXTREMITIES: There is no evidence of gross deformity full range of motion is noted in the hips and shoulders. SKIN: Skin was warm and dry. Trace pedal edema was noted bilaterally. NEUROLOGIC: Patient is awake alert and oriented x3. MEDICAL DECISION MAKING: The patient is a 60-year-old female who presented to the emergency department by ambulance for an evaluation of shortness of breath. The patient has a history of COPD. She quit smoking some months ago. The patient was treated with bronch odilator therapy as well as IV antibiotics and IV steroids. She was reevaluated multiple times. I discussed the patient's laboratory and radiographic studies with her. She was significantly improved but still had an oxygen requirement. For this reason I discussed her case with [facility]. They have agreed to evaluate the patient in the emergency department for further management and disposition. Triage Nursing notes reviewed. Prior medical records reviewed Vital Signs: reviewed and remarkable for hypoxia on room air Differential diagnosis: Reactive airway disease, pneumonia, pneumothorax, COPD, CHF, infections, cardiac ischemia, pulmonary embolism, musculoskeletal, gastrointestinal, as well as other pathologies. ER treatment provided: See below Diagnostics interpreted by me: ECG: EKG was obtained in the emergency department. My interpretation is normal sinus rhythm at 88 bpm. There is no ectopy. There was no acute ST segment abn ormalities noted. This was compared to a tracing from November 052019. No significant changes were noted. Cardiac Monitoring: An order was placed for continuous cardiac monitoring. The monitor shows a rate of 89 bpm with sinus rhythm. Laboratory studies: As stated above and show below. Imaging studies: See below Consultation(s): [id number]: I discussed this case with Xenia Gómez who is on-call for [facility]. Past Med/Surg History Medical History Anxiety and depression Atrial fibrillation Atypical chest pain Cerebrovascular disease Chronic pain on daily narcotics History of stroke "embolic stroke, underlying PFO" Morbid obesity PAF (paroxysmal atrial fibrillation) Submucosal lesion of stomach Noted on EGD 11/06/20 Supratherapeutic INR Surgical History Status post cholecystectomy Status post hysterectomy Family History Other Heart disease Social History Smoking Status: Former smoker Smoking End Date: 2019; Second Hand Exposure: No; Hx Alcohol Use: No Hx Substance Use: No Preferred Language: Tamaz[place] Communication Ability: Effective Splicer Helper Required: No Beliefs That Will Affect Care: None Current Living Situation: Alone Current Living Situation Comment: in march Feels Safe at Home: Yes Safety Concerns: Feels Safe At This Time Assistive Devices: Oxygen - Continuous Allergies Allergies Allergy/AdvReac Type Severity Reaction Status Date / Time aspirin Allergy Unknown TAKES Verified 05/20/21 15:19 COUMADIN salicylates AdvReac Unknown ?DUE TO Verified 05/20/21 15:19 COUMADIN? Home Meds Home Medications Medication Instructions Recorded Confirmed Flovent HFA 2 puff INHALATION BID 09/12/20 05/20/21 acetaminophen [Tylenol] 325 - 650 mg PO DIRECTED PRN 09/12/20 05/20/21 albuterol sulfate 2.5 mg INHALATION Q4H PRN 09/12/20 05/20/21 hydroxyzine HCl 50 mg PO TID PRN 09/12/20 05/20/21 ipratropium-albuterol 3 ml INHALATION Q4H PRN 09/12/20 05/20/21 warfarin 10 - 15 mg PO UD 09/12/20 05/20/21 buspirone 10 mg PO BID 05/20/21 05/20/21 cholecalciferol (vitamin D3) 1,250 mcg PO WK 05/20/21 05/20/21 cholecalciferol (vitamin D3) 25 mcg PO DAILY 05/20/21 05/20/21 [Vitamin D3] guaifenesin [Mucinex] 600 mg PO Q12 PRN 05/20/21 05/20/21 lorazepam 0.5 mg PO TID PRN 05/20/21 05/20/21 tramadol 100 mg PO Q8 PRN 05/20/21 05/20/21 trazodone 50 mg PO HS 05/20/21 05/20/21 Previous Rx's Medication Instructions Recorded isosorbide mononitrate 30 mg PO QAM #0 tab 09/22/20 Results & Data (ED) Vital Signs Vital Signs - 24 hr 05/20/21 16:30 Pulse Rate 82 Pulse Rate from SpO2 Sensor 82 Respiratory Rate 23 Pulse Oximetry 95 Home Medications Current Medication List: was personally reviewed by me Laboratory Data Attestation: I reviewed the patient's lab results. Result diagrams: 05/21/21 07:48 05/21/21 07:48 Lab Results 05/20/21 05/20/21 05/20/21 Range/Units 13:07 13:07 13:07 WBC 9.73 (4.8-10.8) K/uL RBC 3.95 L (4.2-5.4) M/uL Hgb 11.2 L (12.0-16.0) g/dL Hct 35.4 L (37-47) % MCV 89.6 (80-100) fL MCH 28.4 (25-34) pg MCHC 31.6 L (32-36) g/dL RDW Std Deviation 59.2 H (36.4-46.3) fL RDW Coeff of Ursula 17.9 H (11.5-14.5) % Plt Count 328 (130-400) K/uL MPV 8.4 (7.4-10.4) fL Immature Gran % (Auto) 0.2 % Neut % (Auto) 72.2 % Lymph % (Auto) 18.7 % Hunt % (Auto) 7.2 % Eos % (Auto) 1.5 % Baso % (Auto) 0.2 % Neut # (Auto) 7.02 H (1.4-6.5) K/uL Lymph # (Auto) 1.82 (1.2-3.4) K/uL Hunt # (Auto) 0.70 H (0.11-0.59) K/uL Eos # (Auto) 0.15 (0-0.5) K/uL Baso # (Auto) 0.02 (0-0.2) K/uL Immature Gran # (Auto) 0.02 (0.00-0.02) K/uL PT 68.8 H (9.0-12.0) Seconds INR 8.0 H* (0.9-1.1) APTT 71.3 H* (21.0-31.0) Seconds PTT Ratio 2.7 Sodium 139 (136-145) mmol/L Potassium 3.4 L (3.5-5.1) mmol/L Chloride 105 (98-107) mmol/L Carbon Dioxide 29 (21-32) mmol/L Anion Gap 5.0 (3-11) BUN 10 (7-18) mg/dl Creatinine 0.57 L (0.6-1.2) mg/dl Est Cr Clr Drug Dosing 128.1 ml/min Est GFR ( Amer) 116.8 ml/min Est GFR (Non-Af Amer) 100.8 ml/min BUN/Creatinine Ratio 18.2 (10-20) Glucose 97 (70-99) mg/dl Lactate (0.4-2.0) mmol/L Calcium 8.2 L (8.5-10.1) mg/dl Magnesium 2.1 (1.8-2.4) mg/dl Total Bilirubin 0.3 (0.2-1) mg/dl AST 8 L (15-37) U/L ALT 9 L (12-78) U/L Alkaline Phosphatase 73 (45-117) U/L Troponin I < 0.015 (0-0.045) ng/ml NT-Pro-B Natriuret Pep (0-900) pg/ml Total Protein 6.6 (6.4-8.2) gm/dl Albumin 2.8 L (3.4-5.0) gm/dl Globulin 3.8 (2.5-4.0) gm/dl Albumin/Globulin Ratio 0.7 L (0.9-2) Procalcitonin (0-0.5) ng/ml COVID-19 Eval Order SARS-CoV-2 (PCR) (Negative) 05/20/21 05/20/21 05/20/21 Range/Units 13:07 13:07 14:00 WBC (4.8-10.8) K/uL RBC (4.2-5.4) M/uL Hgb (12.0-16.0) g/dL Hct (37-47) % MCV (80-100) fL MCH (25-34) pg MCHC (32-36) g/dL RDW Std Deviation (36.4-46.3) fL RDW Coeff of Ursula (11.5-14.5) % Plt Count (130-400) K/uL MPV (7.4-10.4) fL Immature Gran % (Auto) % Neut % (Auto) % Lymph % (Auto) % Hunt % (Auto) % Eos % (Auto) % Baso % (Auto) % Neut # (Auto) (1.4-6.5) K/uL Lymph # (Auto) (1.2-3.4) K/uL Hunt # (Auto) (0.11-0.59) K/uL Eos # (Auto) (0-0.5) K/uL Baso # (Auto) (0-0.2) K/uL Immature Gran # (Auto) (0.00-0.02) K/uL PT (9.0-12.0) Seconds INR (0.9-1.1) APTT (21.0-31.0) Seconds PTT Ratio Sodium (136-145) mmol/L Potassium (3.5-5.1) mmol/L Chloride (98-107) mmol/L Carbon Dioxide (21-32) mmol/L Anion Gap (3-11) BUN (7-18) mg/dl Creatinine (0.6-1.2) mg/dl Est Cr Clr Drug Dosing ml/min Est GFR ( Amer) ml/min Est GFR (Non-Af Amer) ml/min BUN/Creatinine Ratio (10-20) Glucose (70-99) mg/dl Lactate 1.0 (0.4-2.0) mmol/L Calcium (8.5-10.1) mg/dl Magnesium (1.8-2.4) mg/dl Total Bilirubin (0.2-1) mg/dl AST (15-37) U/L ALT (12-78) U/L Alkaline Phosphatase (45-117) U/L Troponin I (0-0.045) ng/ml NT-Pro-B Natriuret Pep 144 (0-900) pg/ml Total Protein (6.4-8.2) gm/dl Albumin (3.4-5.0) gm/dl Globulin (2.5-4.0) gm/dl Albumin/Globulin Ratio (0.9-2) Procalcitonin < 0.05 (0-0.5) ng/ml COVID-19 Eval Order SARS-CoV-2 (PCR) (Negative) 05/20/21 05/20/21 Range/Units 14:00 14:00 WBC (4.8-10.8) K/uL RBC (4.2-5.4) M/uL Hgb (12.0-16.0) g/dL Hct (37-47) % MCV (80-100) fL MCH (25-34) pg MCHC (32-36) g/dL RDW Std Deviation (36.4-46.3) fL RDW Coeff of Ursula (11.5-14.5) % Plt Count (130-400) K/uL MPV (7.4-10.4) fL Immature Gran % (Auto) % Neut % (Auto) % Lymph % (Auto) % Hunt % (Auto) % Eos % (Auto) % Baso % (Auto) % Neut # (Auto) (1.4-6.5) K/uL Lymph # (Auto) (1.2-3.4) K/uL Hunt # (Auto) (0.11-0.59) K/uL Eos # (Auto) (0-0.5) K/uL Baso # (Auto) (0-0.2) K/uL Immature Gran # (Auto) (0.00-0.02) K/uL PT (9.0-12.0) Seconds INR (0.9-1.1) APTT (21.0-31.0) Seconds PTT Ratio Sodium (136-145) mmol/L Potassium (3.5-5.1) mmol/L Chloride (98-107) mmol/L Carbon Dioxide (21-32) mmol/L Anion Gap (3-11) BUN (7-18) mg/dl Creatinine (0.6-1.2) mg/dl Est Cr Clr Drug Dosing ml/min Est GFR ( Amer) ml/min Est GFR (Non-Af Amer) ml/min BUN/Creatinine Ratio (10-20) Glucose (70-99) mg/dl Lactate (0.4-2.0) mmol/L Calcium (8.5-10.1) mg/dl Magnesium (1.8-2.4) mg/dl Total Bilirubin (0.2-1) mg/dl AST (15-37) U/L ALT (12-78) U/L Alkaline Phosphatase (45-117) U/L Troponin I (0-0.045) ng/ml NT-Pro-B Natriuret Pep (0-900) pg/ml Total Protein (6.4-8.2) gm/dl Albumin (3.4-5.0) gm/dl Globulin (2.5-4.0) gm/dl Albumin/Globulin Ratio (0.9-2) Procalcitonin (0-0.5) ng/ml COVID-19 Eval Order Covid19 at [facility] SARS-CoV-2 (PCR) NEGATIVE (Negative) Administered Medications Acetaminophen (Acetaminophen 325 Mg Tab) 650 mg PO Q4H PRN PRN Reason: Pain or Fever Stop: 06/19/21 18:02 Last Admin: 05/21/21 15:49 Dose: 650 mg Documented by: [id number] Azithromycin (Azithromycin 250 Mg Tab) 500 mg PO Q24H [facility] Stop: 05/27/21 19:59 Last Admin: 05/20/21 20:28 Dose: 500 mg Documented by: [id number] Fluticasone Furoate (Fluticasone Furoate 200mcg 14 Puffs/Inhaler) 1 puffs INH DAILY [facility] Stop: 06/20/21 08:59 Last Admin: 05/21/21 08:12 Dose: 1 puffs Documented by: [id number] Guaifenesin (Guaifenesin 600 Mg Tabcr) 600 mg PO Q12 PRN PRN Reason: Congestion Stop: 06/19/21 18:02 Last Admin: 05/21/21 11:00 Dose: 600 mg Documented by: [id number] Isosorbide Mononitrate (Isosorbide Hunt Extended Rel 30 Mg Tabcr) 30 mg PO QAM [facility] Stop: 06/20/21 08:59 Last Admin: 05/21/21 08:12 Dose: 30 mg Documented by: [id number] Loratadine (Loratadine 10 Mg Tab) 10 mg PO QAM [facility] Stop: 05/28/21 08:59 Last Admin: 05/21/21 11:00 Dose: Not Given Documented by: [id number] Lorazepam (Lorazepam 0.5 Mg Tab) 0.5 mg PO TID PRN PRN Reason: Anxiety Stop: 06/19/21 18:02 Last Admin: 05/21/21 15:13 Dose: 0.5 mg Documented by: [id number] Admin: 05/21/21 08:22 Dose: 0.5 mg Documented by: [id number] Prednisone (Prednisone 20 Mg Tab) 40 mg PO DAILY [facility] Stop: 05/25/21 08:59 Last Admin: 05/21/21 08:11 Dose: 40 mg Documented by: [id number] Tramadol HCl (Tramadol Hcl 50 Mg Tablet) 100 mg PO Q8 PRN PRN Reason: Pain Stop: 06/19/21 18:16 Last Admin: 05/21/21 08:22 Dose: 100 mg Documented by: [id number] Admin: 05/20/21 20:37 Dose: 100 mg Documented by: [id number] Vitamin D (Cholecalciferol 1,000 Units 25 Mcg Tab) 1,000 units PO DAILY MARY Stop: 06/20/21 08:59 Last Admin: 05/21/21 08:11 Dose: 1,000 units Documented by: [id number] Discontinued Medications Albuterol (Albut/Ipratrop 3mg/0.5mg Neb 3 Ml Vial) 3 ml NEB NOW STA Stop: 05/20/21 13:52 Last Admin: 05/20/21 14:21 Dose: 3 ml Documented by: [id number] Albuterol (Albut/Ipratrop 3mg/0.5mg Neb 3 Ml Vial) 3 ml NEB NOW STA Stop: 05/20/21 15:25 Last Admin: 05/20/21 15:56 Dose: 3 ml Documented by: [id number] Albuterol (Albut/Ipratrop 3mg/0.5mg Neb 3 Ml Vial) 3 ml NEB Q4R MARY Stop: 06/19/21 18:59 Last Admin: 05/21/21 07:06 Dose: 3 ml Documented by: [id number] Admin: 05/21/21 02:43 Dose: 3 ml Documented by: [id number] Admin: 05/20/21 23:28 Dose: 3 ml Documented by: [id number] Admin: 05/20/21 19:33 Dose: 3 ml Documented by: [id number] Buspirone HCl (Buspirone 5 Mg Tab) 10 mg PO BID MARY Stop: 06/19/21 20:59 Last Admin: 05/21/21 11:00 Dose: 10 mg Documented by: [id number] Admin: 05/20/21 20:29 Dose: 10 mg Documented by: [id number] Dexamethasone Sodium Phosphate (DexamethasonePf 10 Mg/Ml Vial) 10 mg IV NOW ONE Stop: 05/20/21 13:52 Last Admin: 05/20/21 14:29 Dose: 10 mg Documented by: [id number] Ceftriaxone Sodium (Rocephin) 1,000 mg in 50 mls @ 100 mls/hr IV NOW STA Stop: 05/20/21 15:53 Last Infusion: 05/20/21 16:18 Dose: 0 mls/hr Documented by: [id number] Admin: 05/20/21 15:48 Dose: 100 mls/hr Documented by: [id number] Methylprednisolone 40 mg/ (Syringe) 0.64 mls @ 1.5 mls/min IV NOW ONE Stop: 05/20/21 20:01 Last Admin: 05/20/21 20:25 Dose: 1.5 mls/min Documented by: [id number] Loratadine (Loratadine 10 Mg Tab) 10 mg PO NOW ONE Stop: 05/21/21 08:33 Last Admin: 05/21/21 11:00 Dose: 10 mg Documented by: [id number] Lorazepam (Lorazepam 0.5 Mg Tab) 0.5 mg PO NOW STA Stop: 05/20/21 14:14 Last Admin: 05/20/21 14:29 Dose: 0.5 mg Documented by: [id number] Nitroglycerin (Nitroglycerin Sl 0.4 Mg/Tab Tab) 0.4 mg SL NOW STA Stop: 05/20/21 19:41 Last Admin: 05/20/21 20:02 Dose: 0.4 mg Documented by: [id number] Tramadol HCl (Tramadol Hcl 50 Mg Tablet) 100 mg PO NOW STA Stop: 05/20/21 16:56 Last Admin: 05/20/21 17:01 Dose: 100 mg Documented by: [id number] Imaging Data Radiologist's Impression: Chest X-Ray 05/20/21 12:48 XR chest 1V portable HISTORY: Shortness of breath. COMPARISON: Chest and abdominal series 11/08/2020. FINDINGS: No pneumothorax. No pleural effusions. No focal lung consolidations to suggest pneumonia. No evidence for pulmonary edema. The heart is normal in size. There is a mildly tortuous thoracic aorta. IMPRESSION: No acute process. ACT 112: Negative or not required by law. Electronically signed by: Otto Hendrickson M.D. 05/20/2021 1:31 PM Discharge Plan Visit Data Chief Complaint: Shortness of Breath/Dyspnea Stated Complaint: SOB ED Provider: Raj,Padilla R Discharge Problem: Chronic respiratory failure, COPD with exacerbation, Hypoxia Patient Disposition: Admitted As Inpatient Condition: Good Discharge Instructions Interventions: ED Discharge Assessment Last Done: 05/20/21 17:43
[2021-05-20] MEDS ORDERED: LORazepam 0.5 MG TAB PO STA (14:13)
[2021-05-20] MEDS ORDERED: cefTRIAXone SODIUM 1,000 MG/50 ML BAG IV STA (15:24)
--- NOTE | 2021-05-20 16:25 | History & Physical Report ---
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 Afebrile, no leukocytosis or evidence of PNA or volume overload on CXR Presentation consistent with COPD exacerbation in setting of recent URI, non- compliant with home inhalers Continue duonebs QIDR Prednisone 40mg daily Azithromycin Mucinex Saturating at 95% on 3 L nasal cannula O2, which is her baseline Continue supplemental O2 PT / OT evaluation prior to discharge due to deconditionting (4) Supratherapeutic INR: INR of 8 today - likely multifactorial in setting of poor appetite with URI, questionable understanding of coumadin dose and recently starting tramadol which can cause a drug-drug interaction No active bleeding so no indication for reversal HOLD coumadin for now Discontinue Tramadol Monitor daily INR (5) History of CVA (cerebrovascular accident): History of embolic stroke with some residual visual deficit in L eye Holding coumadin while INR supratherapeutic (6) Chronic pain: Continue Tramadol 100mg TID PRN ( checked PDMP ) Avoid additional narcotics while admitted (7) Anxiety and depression: Worsening of symptoms recently in setting of Aunt's passing Continue Buspar 10mg BID, Hydroxyzine 50mg TID PRN, Ativan 0.5mg TID PRN Discontinuing Trazodone DVT Ppx: Holding coumadin while INR is supratherapeutic Code status: FULL PCP: Ibrahima Dispo: Admit to [facility] tele Patient seen in collaboration with Dr. Aguilar. Please see addendum. 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 Endorses a constellation of URI symptoms over the past few days, including luis alberto cough with pleuritic chest pain, wheezing, headache, runny nose and sore throat over the past few days. Also endorses swelling in legs. Denies fever, chills, lightheadedness, headache, nausea, vomiting, abdominal pain, dysuria or constipation. Was diagnosed with subacute bronchitis on 04/23/2021 and completed course of Levaquin from PCP. Chronic diarrhea. Has not used inhalers in a long time and needs a refilled prescription. Quit smoking cigarettes last year. Recently started Trazodone 50mg recently for insomnia. Is sedentary and incont inent of urine at baseline. Has chronic pain in hips and back and takes tramadol 100mg TID PRN. Allergies Allergy/AdvReac Type Severity Reaction Status Date / Time aspirin Allergy Unknown TAKES Verified 05/20/21 15:19 COUMADIN salicylates AdvReac Unknown ?DUE TO Verified 05/20/21 15:19 COUMADIN? Home Medications Medication Instructions Recorded Confirmed Type Flovent HFA 2 puff INHALATION BID 09/12/20 05/20/21 History acetaminophen [Tylenol] 325 - 650 mg PO DIRECTED PRN 09/12/20 05/20/21 History albuterol sulfate 2.5 mg INHALATION Q4H PRN 09/12/20 05/20/21 History hydroxyzine HCl 50 mg PO TID PRN 09/12/20 05/20/21 History ipratropium-albuterol 3 ml INHALATION Q4H PRN 09/12/20 05/20/21 History warfarin 10 - 15 mg PO UD 09/12/20 05/20/21 History isosorbide mononitrate 30 mg PO QAM #0 tab 09/22/20 05/20/21 Rx buspirone 10 mg PO BID 05/20/21 05/20/21 History cholecalciferol (vitamin D3) 1,250 mcg PO WK 05/20/21 05/20/21 History cholecalciferol (vitamin D3) 25 mcg PO DAILY 05/20/21 05/20/21 History [Vitamin D3] guaifenesin [Mucinex] 600 mg PO Q12 PRN 05/20/21 05/20/21 History lorazepam 0.5 mg PO TID PRN 05/20/21 05/20/21 History tramadol 100 mg PO Q8 PRN 05/20/21 05/20/21 History trazodone 50 mg PO HS 05/20/21 05/20/21 History Past Med/Surg History Medical History (Updated 05/20/21 @ 17:02 by Xenia Gómez PA-C) Anxiety and depression Atrial fibrillation Atypical chest pain Cerebrovascular disease Chronic pain on daily narcotics History of stroke "embolic stroke, underlying PFO" Morbid obesity PAF (paroxysmal atrial fibrillation) Submucosal lesion of stomach Noted on EGD 11/06/20 Supratherapeutic INR Surgical History Status post cholecystectomy Status post hysterectomy Family History Other Heart disease Social History (Updated 05/20/21 @ 16:29 by Xenia Gómez PA-C) Smoking Status: Former smoker Smoking End Date: 2019; Second Hand Exposure: No; Hx Alcohol Use: No Hx Substance Use: No Preferred Language: Portuguese Communication Ability: Effective Steamer Gum Candy Required: No Beliefs That Will Affect Care: Sikh Sikh Beliefs: Mandaen Current Living Situation: Alone Current Living Situation Comment: in march Feels Safe at Home: Yes Assistive Devices: Oxygen - Continuous and Walker Review of Systems Review of Systems: At least ten systems reviewed and negative except as noted in the HPI. Physical Exam Physical Exam: Please see Dr. Aguilar's addendum for physical exam. Results & Data Results & Data ([facility]) Vital Signs (Past 12 Hours) Vital Signs Temp Pulse Pulse Resp BP Pulse Ox 05/20/21 15:02 80 21 112/59 L 95 05/20/21 14:22 78 16 94 05/20/21 12:53 96 05/20/21 12:52 96 05/20/21 12:35 36.8 C 85 26 H 153/53 H 91 Laboratory Results Short CBC 05/20/21 Range/Units 13:07 WBC 9.73 (4.8-10.8) K/uL Hgb 11.2 L (12.0-16.0) g/dL Hct 35.4 L (37-47) % Plt Count 328 (130-400) K/uL BMP 05/20/21 13:07 Sodium 139 Potassium 3.4 L Chloride 105 Carbon Dioxide 29 BUN 10 Creatinine 0.57 L Glucose 97 Calcium 8.2 L Cardiac Enzymes 05/20/21 Range/Units 13:07 Troponin I < 0.015 (0-0.045) ng/ml Liver Function 05/20/21 Range/Units 13:07 Total Bilirubin 0.3 (0.2-1) mg/dl AST 8 L (15-37) U/L ALT 9 L (12-78) U/L Alkaline Phosphatase 73 (45-117) U/L Albumin 2.8 L (3.4-5.0) gm/dl Diagnostic Findings Chest X-Ray 05/20/21 12:48 XR chest 1V portable HISTORY: Shortness of breath. COMPARISON: Chest and abdominal series 11/08/2020. FINDINGS: No pneumothorax. No pleural effusions. No focal lung consolidations to suggest pneumonia. No evidence for pulmonary edema. The heart is normal in size. There is a mildly tortuous thoracic aorta. IMPRESSION: No acute process. ACT 112: Negative or not required by law. Electronically signed by: Otto Hendrickson M.D. 05/20/2021 1:31 PM ECG Rhythm: normal sinus Supervising Physician Co-Signing Physician Notes History and physical exam performed by ne History notable for 60-year-old woman with history of anxiety and depression, CVA, COPD on 3 L/min of oxygen, A. fib, on Coumadin therapy who presents to the ER complaining of cough and shortness of breath for the past few days. History as detailed by Xenia Gómez PA-C On physical exam, General: Obese, no obvious distress Eyes: PERRL, conjunctivae normal, not pale, anicteric sclerae, EOM intact bilaterally ENMT: External ear and nose normal, oropharynx normal Respiratory: Normal respiratory effort, no respiratory distress, on 3l/min nasal oxygen, expiratory wheeze globally Cardiovascular: Pulse is RRR. S1 S2 Gastrointestinal (Abdomen): Abdomen is not distended, soft, non-tender to palpation, no guarding, no palpable hepatosplenomegaly, normal bowel sounds Musculoskeletal: No cyanosis or clubbing, all extremities motor strength 5/5 Neurologic: Alert and oriented x 3, No focal weakness, sensation grossly intact Psychiatric: Alert and oriented x 3, euthymic affect, no depressed affect Chest x-ray does not report any focal opacity or infiltrates -COPD exacerbation -Upper respiratory infection -Supratherapeutic INR DuoNeb 4 times daily Albuterol as needed Prednisone for 5 days therapy Azithromycin Patient will need follow-up with pulmonary. INR is 8 today. Monitor for bleeding. Hemoglobin stable Supratherapeutic INR likely due to medication interaction/medication dosing adherence. Started on trazodone recently. Patient also reported that she had been taking 20 mg on Mondays and 10 mg other days as opposed to last pharmacy [facility] clinic report which recommended 20 mg on one particular day and continue 10 mg every day. No need for reversal at this point. Monitor daily INR. Hold Coumadin. Stop trazodone trial dialysis recently started by psychiatrist. Agree with other plans as detailed by Xenia Gómez PA-C
--- NOTE | 2021-05-20 16:51 | Communication Note ---
Date of Service: May 20, 2021 History and physical exam performed by me History notable for 60-year-old woman with history of anxiety and depression, CVA, COPD on 3 L/min of oxygen, A. fib, on Coumadin therapy who presents to the ER complaining of cough and shortness of breath for the past few days. History as detailed by Xenia Gómez PA-C On physical exam, General: Obese, no obvious distress Eyes: PERRL, conjunctivae normal, not pale, anicteric sclerae, EOM intact bilaterally ENMT: External ear and nose normal, oropharynx normal Respiratory: Normal respiratory effort, no respiratory distress, on 3l/min nasal oxygen, expiratory wheeze globally Cardiovascular: Pulse is RRR. S1 S2 Gastrointestinal (Abdomen): Abdomen is not distended, soft, non-tender to palpation, no guarding, no palpable hepatosplenomegaly, normal bowel sounds Musculoskeletal: No cyanosis or clubbing, all extremities motor strength 5/5 Neurologic: Alert and oriented x 3, No focal weakness, sensation grossly intact Psychiatric: Alert and oriented x 3, euthymic affect, no depressed affect Chest x-ray does not report any focal opacity or infiltrates -COPD exacerbation -Upper respiratory infection -Supratherapeutic INR DuoNeb 4 times daily Albuterol as needed Prednisone for 5 days therapy Azithromycin Patient will need follow-up with pulmonary. INR is 8 today. Monitor for bleeding. Hemoglobin stable Supratherapeutic INR likely due to medication interaction/medication dosing adherence. Started on trazodone recently. Patient also reported that she had been taking 20 mg on Mondays and 10 mg other days as opposed to last pharmacy [facility] clinic report which recommended 20 mg on one particular day and continue 10 mg every day. No need for reversal at this point. Monitor daily INR. Hold Coumadin. Stop trazodone trial dialysis recently started by psychiatrist. Agree with other plans as detailed by Xenia Gómez PA-C
[2021-05-20] MEDS ORDERED: traMADol HCL 50 MG TABLET PO STA (16:55)
[2021-05-20] MEDS ORDERED: POLYETHYLENE (MIRALAX) 17 GM PACK PO PRN (18:03)
[2021-05-20] MEDS: ALBUT/IPRATROP 3MG/0.5MG NEB 3 ML VIAL NEB SCH ×2 (19:33→23:28)
[2021-05-20] MEDS ORDERED: NITROGLYCERIN SL 0.4 MG/TAB TAB SL STA (19:40)
[2021-05-20] MEDS ORDERED: methylPREDNISolone 40 MG in SYRINGE 0 ML IV ONE (20:00)
[2021-05-20 20:19] LABS: Base Excess ABG 1.1 mEq/L (-9-1.8); HCO3 ABG 26 mmol/L (19-24); Oxygen Saturation ABG 95.5 % (90-95); PCO2 ABG 42 mmHg (35-46); PO2 ABG 74 mmHg (80-95); pH ABG 7.41 (7.35-7.45)
[2021-05-20 20:23] LABS: Allen Test Pos (Pos)
--- NOTE | 2021-05-20 20:27 | Communication Note ---
Date of Service: May 20, 2021 Patient complaining of chest pain, shortness of breath as per RN. O2 sats 80s on 3 L nasal cannula. Chest pain relieved by nitroglycerin. Chest x-ray : No active disease in the chest. EKG as per my interpretation : Rate 90, NSR, normal axis, T wave abnormality septal leads, low voltage (similar to EKG on admission) Troponin negative AP Chest pain relieved by nitroglycerin Rule out ACS given risk factors Trend troponin Cardiology consult in a.m. if with elevation and or recurrent chest pain Will relay to AM provider.
[2021-05-20] MEDS: AZITHROMYCIN 250 MG TAB PO SCH (20:28)
[2021-05-20] MEDS: busPIRone 5 MG TAB PO SCH (20:29)
--- NOTE | 2021-05-20 20:29 | XRay Report ---
SINGLE VIEW CHEST CLINICAL HISTORY: Hypoxia. FINDINGS: An AP, portable, upright chest radiograph is compared to study performed earlier the same d ay 05/20/2021. The examination is degraded by portable technique and apical lordotic positioning. The c ardiomediastinal silhouette is unremarkable. Chronic interstitial thickening is similar to previous. There is mild bibasilar atelectasis. No airspace consolidation or large pleural effusion is identifie d. No pneumothorax is seen. The skeletal structures are osteopenic. There are healed left-sided rib f ractures. IMPRESSION: No active disease in the chest. ACT 112: Negative or not required by law. Electronically signed by: Donavon Littlejohn M.D. 05/20/2021 8:28 PM
[2021-05-20] MEDS: traMADol HCL 50 MG TABLET PO PRN (20:37)
[2021-05-21] MEDS: ALBUT/IPRATROP 3MG/0.5MG NEB 3 ML VIAL NEB SCH ×2 (02:43→07:06)
--- NOTE | 2021-05-21 06:20 | Electrocardiogram Report ---
Test Reason : Blood Pressure : / mmHG Vent. Rate : 088 BPM Atrial Rate : 088 BPM P-R Int : 148 ms QRS Dur : 084 ms QT Int : 374 ms P-R-T Axes : 038 027 044 degrees QTc Int : 452 ms Normal sinus rhythm Low voltage QRS Nonspecific T wave abnormality When compared with ECG of 05-NOV-2020 00:16, No significant change Confirmed by Live Warren ([id number]) on 05/21/2021 6:19:58 AM Referred By: Confirmed By:Live Warren
[2021-05-21] MEDS: CHOLECALCIFEROL 1,000 UNITS 25 MCG TAB PO SCH (08:11)
[2021-05-21] MEDS: predniSONE 20 MG TAB PO SCH (08:11)
[2021-05-21] MEDS: FLUTICASONE FUROATE 200MCG 14 PUFFS/INHALER INH SCH (08:12)
[2021-05-21] MEDS: ISOSORBIDE MONO EXTENDED REL 30 MG TABCR PO SCH (08:12)
[2021-05-21 08:13] LABS: Hematocrit (blood only) 35.7 % (37-47); Hemoglobin 11.4 g/dL (12.0-16.0); Mean Corpuscular Hemoglobin 29.1 pg (25-34); Mean Corpuscular Hgb Conc 31.9 g/dL (32-36); Mean Corpuscular Volume 91.1 fL (80-100); Mean Platelet Volume 8.5 fL (7.4-10.4); Platelet Count 348 K/uL (130-400); RDW Coefficient of Variation 17.5 % (11.5-14.5); Red Blood Count 3.92 M/uL (4.2-5.4)
[2021-05-21] MEDS: traMADol HCL 50 MG TABLET PO PRN ×3 (08:22→23:33)
[2021-05-21] MEDS: LORazepam 0.5 MG TAB PO PRN ×3 (08:22→22:11)
[2021-05-21] MEDS ORDERED: LORATADINE 10 MG TAB PO ONE (08:32)
[2021-05-21 08:36] LABS: Prothrombin Time 66.5 Seconds (9.0-12.0)
[2021-05-21 08:40] LABS: BUN Creatinine Ratio 22.2 (10-20); Calcium 8.8 mg/dl (8.5-10.1); Creatinine Clr Calc Pharmacy 94.9 ml/min; Est GFR (African American) 97.3 ml/min; Est GFR (Non-African American) 83.9 ml/min; Potassium 3.7 mmol/L (3.5-5.1)
[2021-05-21 09:16] LABS: INR 7.7 (0.9-1.1)
--- NOTE | 2021-05-21 09:59 | Hospitalist Progress Note ---
Date of Service May 21, 2021 Assessment & Plan (1) URI (upper respiratory infection): (2) COPD (chronic obstructive pulmonary disease): (3) Chronic respiratory failure with hypoxia: Afebrile, no leukocytosis or evidence of PNA or volume overload on CXR Presentation consistent with COPD exacerbation in setting of recent URI, non- compliant with home inhalers Continue duonebs prn Continue prednisone 40mg daily and azithromycin Start loratadine Continue oxygen supplementation Continue supplemental O2 Will need pulmonary follow-up on discharge (4) Supratherapeutic INR: INR of 8 on admission - likely multifactorial in setting of questionable understanding of coumadin dose and recently starting trazodone which can cause a drug-drug interaction No active bleeding so no indication for reversal Continue to hold coumadin for now Hold trazodone for now INR 7.7 today. Continue to monitor (5) History of CVA (cerebrovascular accident): History of embolic stroke with some residual visual deficit in L eye Holding coumadin while INR supratherapeutic (6) Chronic pain: Continue Tramadol 100mg TID PRN PDMP reviewed Avoid additional narcotics while admitted (7) Anxiety and depression: Worsening of symptoms recently in setting of Aunt's passing Continue Buspar 10mg BID, Hydroxyzine 50mg TID PRN, Ativan 0.5mg TID PRN Discontinuing Trazodone Psychiatry evaluation With patient report of change in smell of urine, will get UA With report of bilateral hip and knee pain with fall in the past few weeks, will get PT/OT and XR of hip and knee Based on history, likely has osteoarthritis DVT Ppx: Holding coumadin while INR is supratherapeutic Code status: FULL Admission and Anticipated Discharge Date Admission Date: May 20, 2021 Subjective 60-year-old woman with history of chronic hypoxic respiratory failure on 3 L/min of nasal oxygen, COPD, paroxysmal A. fib, embolic stroke on Coumadin, mood disorder, chronic pain on tramadol, anxiety and depression who presents to the ER complaining of cough and worsening shortness of breath. Being managed for COPD exacerbation and upper respiratory infection. Patient seen and examined this morning. Still reports cough, shortness of breath and chest tightness. Still has nasal congestion and rhinorrhea. Denies any fevers, chills. Reported some chest discomfort overnight. Work-up at the time including EKG, chest x-ray and troponins were all negative. Denies any nausea, vomiting, palpitations Denies any abdominal pain, diarrhea, constipation. Reports chronic urinary incontinence for years. Reported that urine is changed: The past few days with bad smell. Stated that she forgot to report that on admission. She also reported that she fell a few weeks ago and thought. Reports chronic bilateral hip pain and knee pain which has been worsened but limits activity. Reports anxiety and depression. Denies any suicidal or homicidal ideation. Crying spells during evaluation and would like psychiatry evaluation Review of Systems Review of Systems: All systems reviewed & are unremarkable except as noted in Subjective Physical Exam Constitutional: + well hydrated and + obese; no acute distress Eyes: PERRL, conjunctivae normal, anicteric sclerae ENMT: external ear and nose normal, oropharynx normal Respiratory: normal respiratory effort; no respiratory distress On 3 L/min nasal oxygen. Lungs clear on auscultation. No wheeze or crackles Cardiovascular: Rate/Rhythm: regular rate and regular rhythm S1-S2. No pedal edema Gastrointestinal (Abdomen): normal bowel sounds, soft, nontender, no hepatosplenomegaly Musculoskeletal: no cyanosis or clubbing, extremities motor strength 5/5 Reports some with passive extension of the knee and the hip especially in left side. No obvious bruises/ step in bony edges noted. Neurologic: PERRL, EOMI, accommodation nl, no face palsy, no dysarthria Psychiatric: Orientation: alert, oriented x 3 and cooperative Mood: + anxious mood Results & Data Results & Data ([facility]) Vital Signs (Past 12 Hours) Vital Signs Temp Pulse Pulse Resp BP Pulse Ox 05/21/21 07:06 86 16 93 05/21/21 07:04 36.5 C 84 18 109/73 94 05/21/21 02:47 36.6 C 83 20 127/72 94 05/21/21 02:43 92 H 18 92 05/20/21 23:28 76 20 98 05/20/21 22:30 36.4 C L 86 20 107/83 95 05/20/21 22:20 82 Laboratory Results Abnormal lab results 05/20/21 05/20/21 05/20/21 Range/Units 13:07 13:07 13:07 WBC (4.8-10.8) K/uL RBC 3.95 L (4.2-5.4) M/uL Hgb 11.2 L (12.0-16.0) g/dL Hct 35.4 L (37-47) % MCHC 31.6 L (32-36) g/dL RDW Std Deviation 59.2 H (36.4-46.3) fL RDW Coeff of Ursula 17.9 H (11.5-14.5) % Neut # (Auto) 7.02 H (1.4-6.5) K/uL Kimball # (Auto) 0.70 H (0.11-0.59) K/uL PT 68.8 H (9.0-12.0) Seconds INR 8.0 H* (0.9-1.1) APTT 71.3 H* (21.0-31.0) Seconds ABG pO2 (80-95) mmHg ABG HCO3 (19-24) mmol/L ABG O2 Saturation (90-95) % Potassium 3.4 L (3.5-5.1) mmol/L Creatinine 0.57 L (0.6-1.2) mg/dl BUN/Creatinine Ratio (10-20) Glucose (70-99) mg/dl Calcium 8.2 L (8.5-10.1) mg/dl AST 8 L (15-37) U/L ALT 9 L (12-78) U/L Albumin 2.8 L (3.4-5.0) gm/dl Albumin/Globulin Ratio 0.7 L (0.9-2) 05/20/21 05/21/21 05/21/21 Range/Units 20:08 07:48 07:48 WBC 12.00 H (4.8-10.8) K/uL RBC 3.92 L (4.2-5.4) M/uL Hgb 11.4 L (12.0-16.0) g/dL Hct 35.7 L (37-47) % MCHC 31.9 L (32-36) g/dL RDW Std Deviation 59.0 H (36.4-46.3) fL RDW Coeff of Ursula 17.5 H (11.5-14.5) % Neut # (Auto) (1.4-6.5) K/uL Kimball # (Auto) (0.11-0.59) K/uL PT 66.5 H (9.0-12.0) Seconds INR 7.7 H* (0.9-1.1) APTT (21.0-31.0) Seconds ABG pO2 74 L (80-95) mmHg ABG HCO3 26 H (19-24) mmol/L ABG O2 Saturation 95.5 H (90-95) % Potassium (3.5-5.1) mmol/L Creatinine (0.6-1.2) mg/dl BUN/Creatinine Ratio (10-20) Glucose (70-99) mg/dl Calcium (8.5-10.1) mg/dl AST (15-37) U/L ALT (12-78) U/L Albumin (3.4-5.0) gm/dl Albumin/Globulin Ratio (0.9-2) 05/21/21 Range/Units 07:48 WBC (4.8-10.8) K/uL RBC (4.2-5.4) M/uL Hgb (12.0-16.0) g/dL Hct (37-47) % MCHC (32-36) g/dL RDW Std Deviation (36.4-46.3) fL RDW Coeff of Ursula (11.5-14.5) % Neut # (Auto) (1.4-6.5) K/uL Kimball # (Auto) (0.11-0.59) K/uL PT (9.0-12.0) Seconds INR (0.9-1.1) APTT (21.0-31.0) Seconds ABG pO2 (80-95) mmHg ABG HCO3 (19-24) mmol/L ABG O2 Saturation (90-95) % Potassium (3.5-5.1) mmol/L Creatinine (0.6-1.2) mg/dl BUN/Creatinine Ratio 22.2 H (10-20) Glucose 224 H (70-99) mg/dl Calcium (8.5-10.1) mg/dl AST (15-37) U/L ALT (12-78) U/L Albumin (3.4-5.0) gm/dl Albumin/Globulin Ratio (0.9-2)
--- NOTE | 2021-05-21 10:34 | XRay Report ---
XR knee LT 1 or 2V routine, XR knee RT 1 or 2V routine HISTORY: 60 years-old Female Bilateral knee pain. Rule out fracture chronic bilateral knee pain COMPARISON: None TECHNIQUE: 2 views of the bilateral knees FINDINGS: LEFT: Mild medial and lateral with mild to moderate patellofemoral compartment osteoarthritis. No acute fra cture, dislocation or opaque foreign body. Small joint effusion. RIGHT: Mild to moderate medial patellofemoral with mild lateral compartment osteoarthritis. Small joint effu naz. No acute fracture, dislocation or opaque foreign body. IMPRESSION: 1. No acute fracture. 2. 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 3. Small bilateral joint effusions. ACT 112: Negative or not required by law. The above report was generated using voice recognition software. It may contain grammatical, syntax o r spelling errors. Electronically signed by: Alvarez Peters M.D. 05/21/2021 10:32 AM
--- NOTE | 2021-05-21 10:37 | XRay Report ---
XR hips RHONA 1v w pelvis CLINICAL HISTORY: Bilateral hip pain. Rule out fracture COMPARISON: November 05, 2020 DISCUSSION: No definite acute dislocated fractures are seen. Evaluation is slightly limited due to osteopenia. Re demonstration of minimal deformity of the left femoral head which is unchanged since prior study. Medial joint space narrowing is seen within left hip and associated with osteophytes. Also mild degen erative changes are again seen within the right hip joint. IMPRESSION: No definite dislocated fractures are seen. Degenerative changes as detailed above. ACT 112: Negative or not required by law. The above report was generated using voice recognition software. It may contain grammatical, syntax o r spelling errors. Electronically signed by: Yomaira Huff DO 05/21/2021 10:36 AM
[2021-05-21] MEDS: guaiFENesin 600 MG TABCR PO PRN (11:00)
[2021-05-21] MEDS: LORATADINE 10 MG TAB PO SCH (11:00)
[2021-05-21] MEDS: busPIRone 5 MG TAB PO SCH ×2 (11:00→17:00)
--- NOTE | 2021-05-21 13:34 | Psychiatric Consultation ---
Date of Consultation May 21, 2021 Impression / Recommendations Impression 60 yo female with long hx of anxiety, poor response to all prior med trials, suspect much related to respiratory status and poor psychosocial situation. has refused rehab/personal care repeatedly in past. attending confirms that trazodone stopped due to subtherapeutic INR. Patient does not feel effective (I'd also be hesitant to increase dose given 3L o2 dependent) I will shift dosing of buspar, not clear if taking it as states she wasn't sure she would be on it. Was filled 05/05/21 and one of few options for this patient. I hate to use Vistaril standing order given anticholinergic properties and possible effects on cognition in already medically compromised patient avoid standing benzos given hx of opiate dependence liaison to attempt release for communication with Dr. Lilly. No current indication for inpatient psychiatric admit. Psych History Identifying Data 60 yo female with chronic resp failure, 3L O2 dependence, hx of narcotic abuse, known to me from previous consultation early this year. Chief Complaint "I'm just so anxious all the time and don't understand why something can't be done about it". History of Present Illness Since last contact patient did follow up with [facility] psychiatry. No longer on Zoloft. Had a trial of low dose Seroquel prn and states "I'm not supposed to take that anymore". She feels that Buspar is ineffective. She is upset that trazodone was discontinued but can't tell me if it was helpful or how her sleep has been in general. She asked if Ativan can be increased. Redirected to hx. Still has a caregiver 3 days a week who she states just watches tv with her. Granddaughter is a nurse and checks in on her regularly but states that memory is poor and can't keep track of her medicines and believes she took right amount of Coumadin as directed but "I guess I messed it up". Has had general decline in functioning since and now recent loss of an aunt. Past Psychiatric History Previous Psych History: Outpatient Services: Dr. Lilly (or covering physician guerita Nuñez). 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 Previous Psych Admissions: [facility] 09/28 (opiate abuse), 09/29; also [facility] 06/20. Do You Have Access To A Gun?: No Past Medication Trials: 1. Prozac 2. Gabapentin 3. Effexor 4. Cymbalta 5. Zoloft 6. Lexapro 7. BuSpar 8. Lamictal 9. Seroquel 10.Topamax 11.Risperdal 12.Abilify 13.Thorazine 14.Klonopin 15.Ambien 16.Trazodone 17.Zoloft 18.Remeron 19.Vistaril 20.Ativan also Wellbutrin XL 150 spring Allergies Allergy/AdvReac Type Severity Reaction Status Date / Time aspirin Allergy Unknown TAKES Verified 05/20/21 15:19 COUMADIN salicylates AdvReac Unknown ?DUE TO Verified 05/20/21 15:19 COUMADIN? Home Medications Medication Instructions Recorded Confirmed Type Flovent HFA 2 puff INHALATION BID 09/12/20 05/20/21 History acetaminophen [Tylenol] 325 - 650 mg PO DIRECTED PRN 09/12/20 05/20/21 History albuterol sulfate 2.5 mg INHALATION Q4H PRN 09/12/20 05/20/21 History hydroxyzine HCl 50 mg PO TID PRN 09/12/20 05/20/21 History ipratropium-albuterol 3 ml INHALATION Q4H PRN 09/12/20 05/20/21 History warfarin 10 - 15 mg PO UD 09/12/20 05/20/21 History isosorbide mononitrate 30 mg PO QAM #0 tab 09/22/20 05/20/21 Rx buspirone 10 mg PO BID 05/20/21 05/20/21 History cholecalciferol (vitamin D3) 1,250 mcg PO WK 05/20/21 05/20/21 History cholecalciferol (vitamin D3) 25 mcg PO DAILY 05/20/21 05/20/21 History [Vitamin D3] guaifenesin [Mucinex] 600 mg PO Q12 PRN 05/20/21 05/20/21 History lorazepam 0.5 mg PO TID PRN 05/20/21 05/20/21 History tramadol 100 mg PO Q8 PRN 05/20/21 05/20/21 History trazodone 50 mg PO HS 05/20/21 05/20/21 History Family History Etohism, bipolar Substance Abuse History Vicodin until 2 years ago Personal History Living Arrangements: Home Marital Status: Beliefs That Will Affect Care: None Patient History Medical History Anxiety and depression Atrial fibrillation Atypical chest pain Cerebrovascular disease Chronic pain on daily narcotics History of stroke "embolic stroke, underlying PFO" Morbid obesity PAF (paroxysmal atrial fibrillation) Submucosal lesion of stomach Noted on EGD 11/06/20 Supratherapeutic INR Surgical History Status post cholecystectomy Status post hysterectomy Family History Other Heart disease Social History Smoking Status: Former smoker Smoking End Date: 2019; Second Hand Exposure: No; Hx Alcohol Use: No Hx Substance Use: No Preferred Language: Sierra Leonean Communication Ability: Effective Relocation Associate Required: No Beliefs That Will Affect Care: None Current Living Situation: Alone Current Living Situation Comment: in march Feels Safe at Home: Yes Safety Concerns: Feels Safe At This Time Assistive Devices: Oxygen - Continuous Physical Exam Psychiatric: Orientation: alert Apperance: + disheveled Eye Contact: + fair eye contact Motor Behavior: + tremor Speech: normal rat e/rhythm/volume of speech Affect: + anxious affect Mood: + depressed mood and + anxious mood Thought Process: linear/logical thought process Thought Content: reality based without delusions Suicidal Thoughts: denies suicidal thoughts Homicidal Thoughts: denies homicidal thoughts Hallucinations: no auditory hallucinations and no visual hallucinations Cognition: + attention not intact Insight: + poor insight Judgement: + poor judgement Vital Signs (Past 24 Hours): Last Vital Signs Temp 36.5 C 05/21/21 07:04 Pulse 86 05/21/21 07:06 Resp 16 05/21/21 07:06 BP 109/73 05/21/21 07:04 Pulse Ox 93 05/21/21 07:06 Review of Systems All systems reviewed & are unremarkable except as noted in HPI & below Results & Data (PSY) Medications Administered Azithromycin (Azithromycin 250 Mg Tab) 500 mg PO Q24H MARY Stop: 05/27/21 19:59 Last Admin: 05/20/21 20:28 Dose: 500 mg Documented by: [id number] Buspirone HCl (Buspirone 5 Mg Tab) 10 mg PO BID [facility] Stop: 06/19/21 20:59 Last Admin: 05/21/21 11:00 Dose: 10 mg Documented by: [id number] Admin: 05/20/21 20:29 Dose: 10 mg Documented by: [id number] Fluticasone Furoate (Fluticasone Furoate 200mcg 14 Puffs/Inhaler) 1 puffs INH DAILY [facility] Stop: 06/20/21 08:59 Last Admin: 05/21/21 08:12 Dose: 1 puffs Documented by: [id number] Guaifenesin (Guaifenesin 600 Mg Tabcr) 600 mg PO Q12 PRN PRN Reason: Congestion Stop: 06/19/21 18:02 Last Admin: 05/21/21 11:00 Dose: 600 mg Documented by: [id number] Isosorbide Mononitrate (Isosorbide [place] Extended Rel 30 Mg Tabcr) 30 mg PO QAM [facility] Stop: 06/20/21 08:59 Last Admin: 05/21/21 08:12 Dose: 30 mg Documented by: [id number] Loratadine (Loratadine 10 Mg Tab) 10 mg PO QAM [facility] Stop: 05/28/21 08:59 Last Admin: 05/21/21 11:00 Dose: Not Given Documented by: [id number] Lorazepam (Lorazepam 0.5 Mg Tab) 0.5 mg PO TID PRN PRN Reason: Anxiety Stop: 06/19/21 18:02 Last Admin: 05/21/21 08:22 Dose: 0.5 mg Documented by: [id number] Prednisone (Prednisone 20 Mg Tab) 40 mg PO DAILY [facility] Stop: 05/25/21 08:59 Last Admin: 05/21/21 08:11 Dose: 40 mg Documented by: [id number] Tramadol HCl (Tramadol Hcl 50 Mg Tablet) 100 mg PO Q8 PRN PRN Reason: Pain Stop: 06/19/21 18:16 Last Admin: 05/21/21 08:22 Dose: 100 mg Documented by: [id number] Admin: 05/20/21 20:37 Dose: 100 mg Documented by: [id number] Vitamin D (Cholecalciferol 1,000 Units 25 Mcg Tab) 1,000 units PO DAILY [facility] Stop: 06/20/21 08:59 Last Admin: 05/21/21 08:11 Dose: 1,000 units Documented by: [id number] Coding Level of Care Code 58096 U Intl Hosp Care Lvl 3
[2021-05-21] MEDS: ACETAMINOPHEN 325 MG TAB PO PRN ×2 (15:49→20:22)
[2021-05-21 16:00] LABS: Appearance Urine Clear (Clear); Bilirubin Urine Negative (Negative); Blood Urine Negative (Negative); Color Urine Yellow; Glucose Urine UA Negative (Negative); Ketones Urine Negative (Negative); Leukocyte Esterase Urine Negative (Negative); Nitrite Urine Negative (Negative); Protein Urine Negative (Negative); Specific Gravity Urine 1.018 (1.000-1.030); Urobilinogen Urine Negative (Negative); pH Urine 6.5 (4.5-7.5)
[2021-05-21] MEDS: ALBUT/IPRATROP 3MG/0.5MG NEB 3 ML VIAL NEB PRN (16:06)
[2021-05-21] MEDS ORDERED: CONSULT PHARMACY STA (18:02)
[2021-05-21] MEDS ORDERED: VANCOMYCIN CONSULT ACTIVE PRN (18:02)
[2021-05-21] MEDS ORDERED: VANCOMYCIN HCL 2,500 MG in SODIUM CHLORIDE 0.9% 500 ML IV ONE (18:30)
--- NOTE | 2021-05-21 19:07 | Pharmacy Report ---
Pharmacy Abx Dose Short Note - Date of Service May 21, 2021 - Assessment & Plan Assessment 60 year old F receiving vancomycin for treatment of positive blood cultures Day # 1 of antimicrobial therapy. Plan Vancomycin * VANCOMYCIN 2500 MG IV X 1 (25 MG/KG) * VANCOMYCIN 1500 MG IV Q12 HOURS (POPULATION PHARMACOKINETICS SUGGEST HALF-LIFE OF 8.6 HOURS WITH ELIMINATION CONSTANT OF 0.08 HR-1) --- WITH BODY HABITUS WILL REDUCE DOSE TO 13.5 MG/KG WITH EXTENDED INTERVAL. * VANCOMYCIN TROUGH FOR BACTEREMIA IS 15-20 MG/ML * VANCOMYCIN TROUGH NOT CURRENTLY ORDERED EMPIRIC INDICATION CHOSEN WHICH IS 48 HOURS IN DURATION. Pharmacy will continue to follow and will adjust dose/frequency as necessary. Thank you.
[2021-05-21] MEDS: hydrOXYzine HCl 25 MG TAB PO PRN (19:37)
[2021-05-21] MEDS: AZITHROMYCIN 250 MG TAB PO SCH (19:38)
[2021-05-21] MEDS ORDERED: diphenhydrAMINE Capsule 25 MG CAP PO ONE (21:00)
--- NOTE | 2021-05-22 06:07 | Electrocardiogram Report ---
Test Reason : Blood Pressure : / mmHG Vent. Rate : 088 BPM Atrial Rate : 088 BPM P-R Int : 168 ms QRS Dur : 076 ms QT Int : 374 ms P-R-T Axes : 033 006 007 degrees QTc Int : 452 ms Normal sinus rhythm Low voltage QRS Nonspecific ST and T wave abnormality Abnormal ECG When compared with ECG of 20-MAY-2021 12:31, No significant change was found Confirmed by Live Warren ([id number]) on 05/22/2021 6:06:49 AM Referred By: REFERRED SELF Confirmed By:Live Warren
[2021-05-22] MEDS: hydrOXYzine HCl 25 MG TAB PO PRN ×3 (06:25→21:45)
[2021-05-22 07:40] LABS: Hematocrit (blood only) 34.3 % (37-47); Mean Corpuscular Hemoglobin 29.4 pg (25-34); Mean Corpuscular Hgb Conc 32.1 g/dL (32-36); Mean Corpuscular Volume 91.7 fL (80-100); Mean Platelet Volume 8.5 fL (7.4-10.4); Platelet Count 369 K/uL (130-400); RDW Coefficient of Variation 17.7 % (11.5-14.5); RDW Standard Deviation 59.9 fL (36.4-46.3); Red Blood Count 3.74 M/uL (4.2-5.4); White Blood Count 14.18 K/uL (4.8-10.8)
[2021-05-22] MEDS ORDERED: VANCOMYCIN HCL 1,750 MG in SODIUM CHLORIDE 0.9% 500 ML IV SCH (08:00)
[2021-05-22 08:01] LABS: INR 4.8 (0.9-1.1); Prothrombin Time 42.9 Seconds (9.0-12.0)
[2021-05-22] MEDS: ACETAMINOPHEN 325 MG TAB PO PRN (08:02)
[2021-05-22] MEDS: predniSONE 20 MG TAB PO SCH (08:03)
[2021-05-22] MEDS: LORATADINE 10 MG TAB PO SCH (08:03)
[2021-05-22] MEDS: LORazepam 0.5 MG TAB PO PRN ×3 (08:03→19:55)
[2021-05-22] MEDS: traMADol HCL 50 MG TABLET PO PRN ×2 (08:03→15:51)
[2021-05-22] MEDS: ISOSORBIDE MONO EXTENDED REL 30 MG TABCR PO SCH (08:04)
[2021-05-22] MEDS: CHOLECALCIFEROL 1,000 UNITS 25 MCG TAB PO SCH (08:04)
[2021-05-22] MEDS: busPIRone 5 MG TAB PO SCH ×2 (08:04→17:04)
[2021-05-22] MEDS: FLUTICASONE FUROATE 200MCG 14 PUFFS/INHALER INH SCH (08:05)
[2021-05-22] MEDS: VANCOMYCIN HCL 1,500 MG in SODIUM CHLORIDE 0.9% 500 ML IV SCH ×2 (08:13→19:55)
[2021-05-22 08:19] LABS: Blood Urea Nitrogen 19 mg/dl (7-18); Calcium 8.6 mg/dl (8.5-10.1); Carbon Dioxide 29 mmol/L (21-32); Chloride 107 mmol/L (98-107); Est GFR (African American) 114.8 ml/min; Est GFR (Non-African American) 99.1 ml/min; Glucose 90 mg/dl (70-99); Potassium 3.8 mmol/L (3.5-5.1); Sodium 141 mmol/L (136-145)
[2021-05-22 08:24] LABS: Troponin I < 0.015 ng/ml (0-0.045)
--- NOTE | 2021-05-22 10:22 | Hospitalist Progress Note ---
Date of Service May 22, 2021 Assessment & Plan (1) URI (upper respiratory infection): (2) COPD (chronic obstructive pulmonary disease): (3) Chronic respiratory failure with hypoxia: Afebrile, no leukocytosis or evidence of PNA or volume overload on CXR Presentation consistent with COPD exacerbation in setting of recent URI, non- compliant with home inhalers Continue duonebs prn Continue prednisone 40mg daily and azithromycin Continue Loratadine Continue oxygen supplementation (home oxygen) Will need pulmonary follow-up on discharge (4) Supratherapeutic INR: INR of 8 on admission - likely multifactorial in setting of questionable understanding of coumadin dose and recently starting trazodone which can cause a drug-drug interaction No active bleeding so no indication for reversal Continue to hold coumadin for now Hold trazodone for now INR 4.8 today. Continue to monitor (5) History of CVA (cerebrovascular accident): History of embolic stroke with some residual visual deficit in L eye Holding coumadin while INR supratherapeutic (6) Chronic pain: Continue Tramadol 100mg TID PRN Schedule tylenol and lidocaine patch XRays do not show fracture but Osteoarthritis in knees and hip PDMP reviewed Avoid additional narcotics while admitted Awaiting PT/OT (7) Anxiety and depression: Worsening of symptoms recently in setting of Aunt's passing Continue Buspar 10mg BID, Hydroxyzine 50mg TID PRN, Ativan 0.5mg TID PRN Continue to hold Trazodone Psychiatry evaluation appreciated Will follow up with psych Advised patient that no need to increase ativan dose at this time as she is currently on her home dose and is high risk for adverse effect since she is on benzodiazepine and opioid DVT Ppx: Holding coumadin while INR is supratherapeutic Code status: FULL Admission and Anticipated Discharge Date Admission Date: May 20, 2021 Subjective 60-year-old woman with history of chronic hypoxic respiratory failure on 3 L/min of nasal oxygen, COPD, paroxysmal A. fib, embolic stroke on Coumadin, mood disorder, chronic pain on tramadol, anxiety and depression who presents to the ER complaining of cough and worsening shortness of breath. Being managed for COPD exacerbation and upper respiratory infection. Patient seen and examined this morning. Still reports cough Reports some improvement in congestion and rhinorrhea. Still reports occasional chest tightness and anxiety. Reports chronic knee pain. Requesting increased doses of Ativan for anxiety Review of Systems Review of Systems: All systems reviewed & are unremarkable except as noted in Subjective Physical Exam Constitutional: + well hydrated and + obese; no acute distress Eyes: PERRL, conjunctivae normal, anicteric sclerae ENMT: external ear and nose normal, oropharynx normal Respiratory: normal respiratory effort; no respiratory distress Cardiovascular: Rate/Rhythm: regular rate and regular rhythm S1-S2 Gastrointestinal (Abdomen): normal bowel sounds, soft, nontender, no hepatosplenomegaly Musculoskeletal: no cyanosis or clubbing, extremities motor strength 5/5 Neurologic: PERRL, EOMI, accommodation nl, no face palsy, no dysarthria Psychiatric: Orientation: alert, oriented x 3 and cooperative Results & Data Results & Data ([facility]) Vital Signs (Past 12 Hours) Vital Signs Temp Pulse Pulse Resp BP Pulse Ox 05/22/21 07:21 36.4 C L 59 L 18 115/76 96 05/22/21 07:13 58 L 05/22/21 03:47 37.0 C 59 L 20 138/85 97 05/22/21 00:00 63 05/21/21 23:44 36.7 C 64 20 116/74 95 Laboratory Results Abnormal lab results 05/22/21 05/22/21 05/22/21 Range/Units 07:19 07:19 07:19 WBC 14.18 H (4.8-10.8) K/uL RBC 3.74 L (4.2-5.4) M/uL Hgb 11.0 L (12.0-16.0) g/dL Hct 34.3 L (37-47) % RDW Std Deviation 59.9 H (36.4-46.3) fL RDW Coeff of Ursula 17.7 H (11.5-14.5) % PT 42.9 H (9.0-12.0) Seconds INR 4.8 H (0.9-1.1) BUN 19 H (7-18) mg/dl BUN/Creatinine Ratio 32.0 H (10-20)
[2021-05-22] MEDS: LIDOCAINE 5% 1 PATCH TD SCH (10:41)
[2021-05-22] MEDS ORDERED: NAPHAZOLIN/PHENIRAMIN OPH SOLN 75 DROPS/5 ML BTL OP PRN (11:01)
[2021-05-22] MEDS: ACETAMINOPHEN 500 MG TAB PO SCH ×2 (13:58→19:55)
[2021-05-22] MEDS: ALBUT/IPRATROP 3MG/0.5MG NEB 3 ML VIAL NEB PRN (16:46)
[2021-05-22] MEDS: guaiFENesin 600 MG TABCR PO PRN (17:04)
[2021-05-22] MEDS: AZITHROMYCIN 250 MG TAB PO SCH (19:56)
[2021-05-22] MEDS ORDERED: LORazepam 0.5 MG TAB PO PRN (20:19)
[2021-05-22] MEDS ORDERED: diphenhydrAMINE Capsule 25 MG CAP PO ONE (20:20)
[2021-05-23] MEDS: traMADol HCL 50 MG TABLET PO PRN ×3 (00:55→20:15)
--- NOTE | 2021-05-23 05:41 | Electrocardiogram Report ---
Test Reason : Blood Pressure : / mmHG Vent. Rate : 067 BPM Atrial Rate : 067 BPM P-R Int : 140 ms QRS Dur : 078 ms QT Int : 406 ms P-R-T Axes : 034 015 029 degrees QTc Int : 429 ms Normal sinus rhythm Nonspecific T wave abnormality Abnormal ECG When compared with ECG of 20-MAY-2021 19:49, No significant change Confirmed by Live Warren ([id number]) on 05/23/2021 5:41:00 AM Referred By: REFERRED SELF Confirmed By:Live Warren
[2021-05-23] MEDS ORDERED: VANCOMYCIN TROUGH ONE (07:30)
[2021-05-23 07:32] LABS: Hematocrit (blood only) 35.6 % (37-47); Hemoglobin 11.3 g/dL (12.0-16.0); Mean Corpuscular Hemoglobin 28.9 pg (25-34); Mean Corpuscular Hgb Conc 31.7 g/dL (32-36); Mean Platelet Volume 8.3 fL (7.4-10.4); Platelet Count 361 K/uL (130-400); RDW Coefficient of Variation 17.4 % (11.5-14.5); RDW Standard Deviation 58.5 fL (36.4-46.3); Red Blood Count 3.91 M/uL (4.2-5.4); White Blood Count 10.69 K/uL (4.8-10.8)
[2021-05-23] MEDS: CHOLECALCIFEROL 1,000 UNITS 25 MCG TAB PO SCH (07:47)
[2021-05-23] MEDS: guaiFENesin 600 MG TABCR PO PRN (07:47)
[2021-05-23] MEDS: busPIRone 5 MG TAB PO SCH ×3 (07:47→20:16)
[2021-05-23] MEDS: ISOSORBIDE MONO EXTENDED REL 30 MG TABCR PO SCH (07:47)
[2021-05-23] MEDS: predniSONE 20 MG TAB PO SCH (07:47)
[2021-05-23] MEDS: LORATADINE 10 MG TAB PO SCH (07:47)
[2021-05-23] MEDS: ACETAMINOPHEN 500 MG TAB PO SCH ×3 (07:47→20:16)
[2021-05-23] MEDS: VANCOMYCIN HCL 1,500 MG in SODIUM CHLORIDE 0.9% 500 ML IV SCH (07:48)
[2021-05-23] MEDS: FLUTICASONE FUROATE 200MCG 14 PUFFS/INHALER INH SCH (07:48)
[2021-05-23] MEDS: LIDOCAINE 5% 1 PATCH TD SCH (07:50)
[2021-05-23 08:07] LABS: BUN Creatinine Ratio 32.9 (10-20); Calcium 8.4 mg/dl (8.5-10.1); Creatinine Clr Calc Pharmacy 110.4 ml/min; Est GFR (African American) 113.6 ml/min; Potassium 3.6 mmol/L (3.5-5.1)
[2021-05-23 10:26] LABS: INR 2.5 (0.9-1.1); Prothrombin Time 23.6 Seconds (9.0-12.0)
[2021-05-23] MEDS: hydrOXYzine HCl 25 MG TAB PO PRN ×2 (10:33→20:15)
--- NOTE | 2021-05-23 11:32 | Hospitalist Progress Note ---
Date of Service May 23, 2021 Assessment & Plan (1) URI (upper respiratory infection): (2) COPD (chronic obstructive pulmonary disease): (3) Chronic respiratory failure with hypoxia: Afebrile, no evidence of PNA or volume overload on CXR Presentation consistent with COPD exacerbation in setting of recent URI, non- compliant with home inhalers Continue duonebs prn Continue prednisone 40mg daily and azithromycin to complete treatment Continue Loratadine, guaifenesin Continue oxygen supplementation (home oxygen) Will need pulmonary follow-up on discharge (4) Supratherapeutic INR: INR of 8 on admission - likely multifactorial in setting of questionable understanding of coumadin dose and recently starting trazodone which can cause a drug-drug interaction No active bleeding so no indication for reversal Hold trazodone for now INR 2.5 today. Resume warfarin 10 mg daily Monitor INR daily (5) History of CVA (cerebrovascular accident): History of embolic stroke with some residual visual deficit in L eye Coumadin resumed (6) Chronic pain: Continue Tramadol 100mg TID PRN Continue tylenol and lidocaine patch XRays do not show fracture but Osteoarthritis in knees and hip PDMP reviewed Avoid additional narcotics while admitted Patient will benefit from some rehab. She stated to discuss with her son and if son is agreeable that she is okay with it. I called son and and discussed patient clinical problems with pain. He stated that he would actually like patient to go to rehab due to her level of activity at home. We will discuss with cyanide case hardener to look into SNF (7) Anxiety and depression: Worsening of symptoms recently in setting of Aunt's passing Currently on Buspar 10mg BID, Hydroxyzine 50mg TID PRN, Ativan 0.5mg TID PRN Psychiatry evaluation appreciated I called patient psychiatrist Dr. Gandhi and discussed the patient's psychiatric problem with her. She recommends not increasing benzodiazepine but increase buspirone to 10 mg 3 times daily. Buspirone increased. She agrees with holding trazodone DVT prophylaxis-Coumadin Code status: FULL Admission and Anticipated Discharge Date Admission Date: May 20, 2021 Subjective 60-year-old woman with history of chronic hypoxic respiratory failure on 3 L/min of nasal oxygen, COPD, paroxysmal A. fib, embolic stroke on Coumadin, mood disorder, chronic pain on tramadol, anxiety and depression who presents to the ER complaining of cough and worsening shortness of breath. Being managed for COPD exacerbation and upper respiratory infection. Patient seen and examined this morning. Reports cough. Stated she had one episode of blood tinged sputum yesterday States she is feeling overall better today No chest wall tightness at this time. Reports constipation Reports chronic hip and knee pain. Review of Systems Review of Systems: All systems reviewed & are unremarkable except as noted in Subjective Physical Exam Constitutional: + well hydrated and + obese; no acute distress Eyes: PERRL, conjunctivae normal, anicteric sclerae ENMT: external ear and nose normal, oropharynx normal Respiratory: normal respiratory effort; no respiratory distress Cardiovascular: Rate/Rhythm: regular rate and regular rhythm S1-S2 Gastrointestinal (Abdomen): normal bowel sounds, soft, nontender, no hepatosplenomegaly Musculoskeletal: no cyanosis or clubbing, extremities motor strength 5/5 Neurologic: PERRL, EOMI, accommodation nl, no face palsy, no dysarthria Psychiatric: Orientation: alert, oriented x 3 and cooperative Results & Data Results & Data ([facility]) Vital Signs (Past 12 Hours) Vital Signs Temp Pulse Pulse Resp BP Pulse Ox 05/23/21 07:14 53 L 05/23/21 07:06 37.1 C 56 L 18 124/78 97 05/23/21 03:36 72 Laboratory Results Abnormal lab results 05/23/21 05/23/21 05/23/21 Range/Units 07:14 07:14 10:02 RBC 3.91 L (4.2-5.4) M/uL Hgb 11.3 L (12.0-16.0) g/dL Hct 35.6 L (37-47) % MCHC 31.7 L (32-36) g/dL RDW Std Deviation 58.5 H (36.4-46.3) fL RDW Coeff of Ursula 17.4 H (11.5-14.5) % PT 23.6 H (9.0-12.0) Seconds INR 2.5 H (0.9-1.1) Anion Gap 2.0 L (3-11) BUN 21 H (7-18) mg/dl BUN/Creatinine Ratio 32.9 H (10-20) Calcium 8.4 L (8.5-10.1) mg/dl
[2021-05-23] MEDS: SENNA 8.6 MG TAB PO SCH (13:01)
[2021-05-23] MEDS: POLYETHYLENE (MIRALAX) 17 GM PACK PO SCH (13:02)
[2021-05-23] MEDS: LORazepam 0.5 MG TAB PO PRN (15:30)
[2021-05-23] MEDS: WARFARIN SOD 10 MG TAB PO SCH (15:31)
[2021-05-23] MEDS: AZITHROMYCIN 250 MG TAB PO SCH (20:17)
[2021-05-24] MEDS: LORazepam 0.5 MG TAB PO PRN ×3 (02:16→21:28)
[2021-05-24] MEDS: POLYETHYLENE (MIRALAX) 17 GM PACK PO SCH (08:03)
[2021-05-24] MEDS: busPIRone 5 MG TAB PO SCH ×3 (08:04→20:44)
[2021-05-24] MEDS: SENNA 8.6 MG TAB PO SCH (08:04)
[2021-05-24] MEDS: ACETAMINOPHEN 500 MG TAB PO SCH ×3 (08:04→20:49)
[2021-05-24] MEDS: CHOLECALCIFEROL 1,000 UNITS 25 MCG TAB PO SCH (08:05)
[2021-05-24] MEDS: LORATADINE 10 MG TAB PO SCH (08:05)
[2021-05-24] MEDS: FLUTICASONE FUROATE 200MCG 14 PUFFS/INHALER INH SCH (08:05)
[2021-05-24] MEDS: ISOSORBIDE MONO EXTENDED REL 30 MG TABCR PO SCH (08:05)
[2021-05-24] MEDS: traMADol HCL 50 MG TABLET PO PRN ×3 (08:05→23:08)
[2021-05-24] MEDS: hydrOXYzine HCl 25 MG TAB PO PRN ×3 (08:06→23:07)
[2021-05-24] MEDS: LIDOCAINE 5% 1 PATCH TD SCH (08:07)
[2021-05-24] MEDS: predniSONE 20 MG TAB PO SCH (08:07)
[2021-05-24 08:24] LABS: Hematocrit (blood only) 36.7 % (37-47); Hemoglobin 11.5 g/dL (12.0-16.0); Mean Corpuscular Hemoglobin 28.5 pg (25-34); Mean Corpuscular Hgb Conc 31.3 g/dL (32-36); Mean Corpuscular Volume 90.8 fL (80-100); Mean Platelet Volume 8.7 fL (7.4-10.4); Platelet Count 397 K/uL (130-400); RDW Coefficient of Variation 17.1 % (11.5-14.5); RDW Standard Deviation 57.3 fL (36.4-46.3); Red Blood Count 4.04 M/uL (4.2-5.4); White Blood Count 9.04 K/uL (4.8-10.8)
[2021-05-24 08:33] LABS: INR 2.6 (0.9-1.1); Prothrombin Time 24.5 Seconds (9.0-12.0)
[2021-05-24] MEDS ORDERED: guaiFENesin SUGAR FREE 100 MG/5 ML UDC PO PRN (08:49)
[2021-05-24 08:51] LABS: BUN Creatinine Ratio 35.6 (10-20); Calcium 8.5 mg/dl (8.5-10.1); Creatinine Clr Calc Pharmacy 110.5 ml/min; Est GFR (African American) 113.6 ml/min; Potassium 3.4 mmol/L (3.5-5.1)
[2021-05-24] MEDS: ALBUTEROL 0.083% NEBU SOLN 3 ML VIAL NEB PRN ×2 (09:32→15:53)
--- NOTE | 2021-05-24 09:51 | Hospitalist Progress Note ---
Date of Service May 24, 2021 Assessment & Plan (1) URI (upper respiratory infection): (2) COPD (chronic obstructive pulmonary disease): (3) Chronic respiratory failure with hypoxia: Afebrile, no evidence of PNA or volume overload on CXR Presentation consistent with COPD exacerbation in setting of recent URI, non- compliant with home inhalers Continue duonebs prn Completed prednisone this morning. Will complete azithromycin today Continue Loratadine, guaifenesin Continue oxygen supplementation (home oxygen) Will need pulmonary follow-up on discharge Continue fluticasone. Started on umeclidinium Continue nebs prn (4) Supratherapeutic INR: INR of 8 on admission - likely multifactorial in setting of questionable understanding of coumadin dose and recently starting trazodone which can cause a drug-drug interaction No active bleeding so no indication for reversal Hold trazodone for now INR 2.6 today. Continue warfarin 10 mg daily Monitor INR daily (5) History of CVA (cerebrovascular accident): History of embolic stroke with some residual visual deficit in L eye Coumadin resumed (6) Chronic pain: Continue Tramadol 100mg TID PRN Continue tylenol and lidocaine patch XRays do not show fracture but Osteoarthritis in knees and hip PDMP reviewed Avoid additional narcotics while admitted CM working on rehab placement per pt and son's request (7) Anxiety and depression: Worsening of symptoms recently in setting of Aunt's passing Currently on Buspar 10mg BID, Hydroxyzine 50mg TID PRN, Ativan 0.5mg TID PRN Psychiatry evaluation appreciated On 05/23/21I called patient psychiatrist Dr. Gandhi and discussed the patient's psychiatric problem with her. She recommended not increasing benzodiazepine but increase buspirone to 10 mg 3 times daily. Buspirone increased. She agrees with holding trazodone DVT prophylaxis-Coumadin Code status: FULL Admission and Anticipated Discharge Date Admission Date: May 20, 2021 Subjective 60-year-old woman with history of chronic hypoxic respiratory failure on 3 L/min of nasal oxygen, COPD, paroxysmal A. fib, embolic stroke on Coumadin, mood disorder, chronic pain on tramadol, anxiety and depression who presents to the ER complaining of cough and worsening shortness of breath. Being managed for COPD exacerbation and upper respiratory infection. Patient seen and examined this morning. Still reports cough Reports some wheezing with chest tightness this morning Constipation has resolved Has chronic hip and knee pain. Review of Systems Review of Systems: All systems reviewed & are unremarkable except as noted in Subjective Physical Exam Constitutional: + well hydrated and + obese; no acute distress Eyes: PERRL, conjunctivae normal, anicteric sclerae ENMT: external ear and nose normal, oropharynx normal Respiratory: normal respiratory effort; no respiratory distress bilateral expiratory wheeze, no crackles Cardiovascular: Rate/Rhythm: regular rate and regular rhythm S1 S2 Gastrointestinal (Abdomen): normal bowel sounds, soft, nontender, no hepatosplenomegaly Musculoskeletal: no cyanosis or clubbing, extremities motor strength 5/5 Neurologic: PERRL, EOMI, accommodation nl, no face palsy, no dysarthria Psychiatric: Orientation: alert, oriented x 3 and cooperative Results & Data Results & Data ([facility]) Vital Signs (Past 12 Hours) Vital Signs Temp Pulse Pulse Resp BP Pulse Ox 05/24/21 09:32 103 H 20 89 L 05/24/21 07:39 71 05/24/21 07:00 36.5 C 68 18 122/79 97 05/24/21 05:00 64 05/24/21 04:00 36.5 C 56 L 18 102/69 95 05/24/21 00:00 36.5 C 72 18 121/71 94 Laboratory Results Abnormal lab results 05/23/21 05/24/21 05/24/21 Range/Units 10:02 07:51 07:51 RBC 4.04 L (4.2-5.4) M/uL Hgb 11.5 L (12.0-16.0) g/dL Hct 36.7 L (37-47) % MCHC 31.3 L (32-36) g/dL RDW Std Deviation 57.3 H (36.4-46.3) fL RDW Coeff of Ursula 17.1 H (11.5-14.5) % PT 23.6 H (9.0-12.0) Seconds INR 2.5 H (0.9-1.1) Potassium 3.4 L (3.5-5.1) mmol/L BUN 22 H (7-18) mg/dl BUN/Creatinine Ratio 35.6 H (10-20) 05/24/21 Range/Units 07:51 RBC (4.2-5.4) M/uL Hgb (12.0-16.0) g/dL Hct (37-47) % MCHC (32-36) g/dL RDW Std Deviation (36.4-46.3) fL RDW Coeff of Ursula (11.5-14.5) % PT 24.5 H (9.0-12.0) Seconds INR 2.6 H (0.9-1.1) Potassium (3.5-5.1) mmol/L BUN (7-18) mg/dl BUN/Creatinine Ratio (10-20)
[2021-05-24] MEDS: UMECLIDINIUM BROMIDE 62.5MCG/BLISTER 7 PUFFS/INHALER INH SCH (09:54)
[2021-05-24] MEDS: WARFARIN SOD 10 MG TAB PO SCH ×2 (16:03→16:06)
[2021-05-24] MEDS: AZITHROMYCIN 250 MG TAB PO SCH (20:45)
[2021-05-25] MEDS: ACETAMINOPHEN 500 MG TAB PO SCH (08:03)
[2021-05-25] MEDS: LIDOCAINE 5% 1 PATCH TD SCH (08:04)
[2021-05-25] MEDS: SENNA 8.6 MG TAB PO SCH (08:05)
[2021-05-25] MEDS: LORATADINE 10 MG TAB PO SCH (08:05)
[2021-05-25] MEDS: busPIRone 5 MG TAB PO SCH (08:05)
[2021-05-25] MEDS: traMADol HCL 50 MG TABLET PO PRN (08:06)
[2021-05-25] MEDS: ISOSORBIDE MONO EXTENDED REL 30 MG TABCR PO SCH (08:06)
[2021-05-25] MEDS: FLUTICASONE FUROATE 200MCG 14 PUFFS/INHALER INH SCH (08:06)
[2021-05-25] MEDS: POLYETHYLENE (MIRALAX) 17 GM PACK PO SCH ×2 (08:06→08:16)
[2021-05-25] MEDS: UMECLIDINIUM BROMIDE 62.5MCG/BLISTER 7 PUFFS/INHALER INH SCH (08:06)
[2021-05-25] MEDS: LORazepam 0.5 MG TAB PO PRN (08:13)
[2021-05-25] MEDS: CHOLECALCIFEROL 1,000 UNITS 25 MCG TAB PO SCH (08:19)
[2021-05-25 08:58] LABS: INR 3.1 (0.9-1.1); Prothrombin Time 28.7 Seconds (9.0-12.0)
[2021-05-25] MEDS ORDERED: ALBUT/IPRATROP 3MG/0.5MG NEB 3 ML VIAL NEB STA (09:06)
[2021-05-25] MEDS ORDERED: predniSONE 20 MG TAB PO SCH (09:15)
--- NOTE | 2021-05-25 09:28 | XRay Report ---
XR chest 1V portable HISTORY: 60 years-old Female Reassess. Cough, wheezing acute cough with wheezing COMPARISON: Chest radiograph 05/20/2021 TECHNIQUE: Portable AP view of the chest FINDINGS: Cardiomediastinal and hilar silhouettes are within normal limits. No pneumothorax, pleural effusion, airspace consolidation or overt pulmonary edema. The bones of the chest appear grossly intact. IMPRESSION: No acute process. ACT 112: Negative or not required by law. The above report was generated using voice recognition software. It may contain grammatical, syntax o r spelling errors. Electronically signed by: Alvarez Peters M.D. 05/25/2021 9:26 AM
--- NOTE | 2021-05-25 10:03 | Discharge Summary ---
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 Endorses a constellation of URI symptoms over the past few days, including luis alberto cough with pleuritic chest pain, wheezing, headache, runny nose and sore throat over the past few days. Also endorses swelling in legs. Denies fever, chills, lightheadedness, headache, nausea, vomiting, abdominal pain, dysuria or constipation. Was diagnosed with subacute bronchitis on 04/23/2021 and completed course of Levaquin from PCP. Chronic diarrhea. Has not used inhalers in a long time and needs a refilled prescription. Quit smoking cigarettes last year. Recently started Trazodone 50mg recently for insomnia. Is sedentary and incontinent of urine at baseline. Has chronic pain in hips and back and takes tramadol 100mg TID PRN. Admission Exam Per Admitting Provider General: Obese, no obvious distress Eyes: PERRL, conjunctivae normal, not pale, anicteric sclerae, EOM intact bilaterally ENMT: External ear and nose normal, oropharynx normal Respiratory: Normal respiratory effort, no respiratory distress, on 3l/min nasal oxygen, expiratory wheeze globally Cardiovascular: Pulse is RRR. S1 S2 Gastrointestinal (Abdomen): Abdomen is not distended, soft, non-tender to palpation, no guarding, no palpable hepatosplenomegaly, normal bowel sounds Musculoskeletal: No cyanosis or clubbing, all extremities motor strength 5/5 Neurologic: Alert and oriented x 3, No focal weakness, sensation grossly intact Psychiatric: Alert and oriented x 3, euthymic affect, no depressed affect Principal Diagnosis COPD Exacerbation Upper respiratory infection Supratherapeutic INR Discharge Exam Constitutional + well hydrated and + obese; no acute distress Eyes PERRL, conjunctivae normal, anicteric sclerae ENMT external ear and nose normal, oropharynx normal Respiratory normal respiratory effort; no respiratory distress Scattered rhonchi. On 3l/min oxygen (baseline) Cardiovascular Rate/Rhythm: regular rate and regular rhythm S1 S2 Gastrointestinal (Abdomen) normal bowel sounds, soft, nontender, no hepatosplenomegaly Musculoskeletal no cyanosis or clubbing, extremities motor strength 5/5 Neurologic PERRL, EOMI, accommodation nl, no face palsy, no dysarthria Psychiatric Orientation: alert, oriented x 3 and cooperative Discharge Data Allergies Allergy/AdvReac Type Severity Reaction Status Date / Time aspirin Allergy Unknown TAKES Verified 05/20/21 15:19 COUMADIN salicylates AdvReac Unknown ?DUE TO Verified 05/20/21 15:19 COUMADIN? Consultations 05/20/21 15:45 ED Decision to Admit Stat 05/21/21 08:46 Consult Psychiatry Routine Hospital Course (1) URI (upper respiratory infection): (2) COPD (chronic obstructive pulmonary disease): (3) Chronic respiratory failure with hypoxia: Afebrile, no evidence of PNA or volume overload on CXR Presentation consistent with COPD exacerbation in setting of recent URI, non- compliant with home inhalers Patient was treated with azithromycin, nebs, antitussives Discharged on prednisone taper 20mg for 4 days, 10mg for 5 days and then stop Continue Loratadine for 4 more days Continue oxygen supplementation (home oxygen) Will need pulmonary referral after rehab Continue fluticasone. Started incruse ellipta Continue albuterol nebs prn (4) Supratherapeutic INR: INR of 8 on admission - likely multifactorial in setting of questionable understanding of coumadin dose and recently starting trazodone which can cause a drug-drug interaction No active bleeding so no indication for reversal Trazodone discontinued INR became therapeutic and warfarin initially resumed on home dose of 10mg daily INR 3.1. today. Discharged on warfarin 5mg daily for now Need to get INR in 3 days at rehab to monitor and manage meds appropriately Need to continue follow up with Anticoagulation MTM (5) History of CVA (cerebrovascular accident): History of embolic stroke with some residual visual deficit in L eye On warfarin (6) Chronic pain: Continue Tramadol 100mg TID PRN Added tylenol scheduled and lidocaine patch XRays do not show fracture but Osteoarthritis in knees and hip PDMP reviewed Avoid additional narcotics (7) Anxiety and depression: Worsening of symptoms recently in setting of Aunt's passing Currently on Buspar 10mg BID, Hydroxyzine 50mg TID PRN, Ativan 0.5mg TID PRN Psychiatry evaluation appreciated On 05/23/21, I called patient psychiatrist Dr. Gandhi and discussed the patient's psychiatric problem with her. She recommended not increasing benzodiazepine but increase buspirone to 10 mg 3 times daily. Buspirone increased. Trazodone discontinued Total Time Total Time Spent Total Time Spent (In Minutes): 35 Total Time Includes: Examination of the Patient, Discharge Planning, Medication Reconciliation and Communication With Other Providers Discharge Plan Discharge Items Patient Disposition: Transfer Inpatient Rehab Fac Reason For Visit: COPD EXACERBATION, SUPRATHERAPEUTIC INR Discharge Diagnosis: COPD Exacerbation Supratherapeutic INR Condition on Discharge: Good Activity: As commented below Activity Comment: Per Physical therapist recommendations Non-emergency contact: Primary Care Provider, Claims Supervisor and Psychiatrist Call non-emergency contact if: you have any medication questions Follow-up/Referrals: Alisha Ilene [Other] - 06/18/21 12:00 pm (outpatient psychiatric appt via telehealth) Roger Alexandra MD [Primary Care Provider] - (Date & Time 05/28/2021 3:20 PM Provider Roger Alexandra MD Department [facility] ) Diet: Heart Healthy Ambulatory Orders: Prothrombin Time INR (Timed) Timeframe: 3 Days Location: Determined by Patient Ordered By: Ashli Arriaza Attending Provider Instructions: Mrs Kendall. You came to the hospital complaining of cough, shortness of breath, chest tightness and congestion. You were evaluated and managed for COPD exacerbation. You are discharged on prednisone taper. Take 20mg daily for next 4 days and then 10mg daily after that for 5 days and then stop. Please ensure your inhalers are sent to your pharmacy when you are being discharged from rehab to home. Your INR was also significantly elevated at 8 when you were admitted. Your warfarin was held briefly but has been resumed. Continue your warfarin at reduced dose of 5mg daily for now. Check INR in 3 days and continue to follow with Anticoagulation clinic once you are discharged from rehab. For your anxiety, your buspirone was increased to 10mg three times a day. It is very important that you follow up with your Psychiatrist for continued management. Please do not take your ativan more than three times a day as needed. It is very important that you establish care with a Claims Supervisor for better management of your COPD and breathing problems. Please use the inhalers as prescribed. Please ensure follow up with your Primary Doctor. It was a pleasure taking care of you. Pending Studies at Discharge: No Stand-Alone Forms: My [facility] Skilled Items Patient informed of condition?: Yes DNR: No Discharge Level of Care: Acute rehab Communicable Disease: No Discharge Prognosis: Stable Lines: None Urinary Catheter: No Medications and DC Order Prescriptions: New loratadine [Wal-itin] 10 mg Tablet 10 mg PO QAM 4 Days Qty: 4 RF: 0 Incruse Ellipta 62.5 mcg/actuation Blister With Device 1 inh inhalation DAILY Qty: 30 RF: 0 prednisone 20 mg Tablet 20 mg PO UD Qty: 7 RF: 0 acetaminophen [Tylenol Extra Strength] 500 mg Tablet 1,000 mg PO TID Qty: 60 RF: 0 lidocaine 5 % Adhesive Patch,Medicated 1 patch transdermal QAM Qty: 30 RF: 0 guaifenesin 100 mg/5 mL Liquid 100 mg PO Q6H PRN (Reason: cough) Qty: 500 RF: 0 Continued hydroxyzine HCl 50 mg tablet 50 mg PO TID PRN (Reason: Anxiety) RF: 0 Flovent HFA 110 mcg/actuation HFA aerosol inhaler 2 puff INHALATION BID RF: 0 albuterol sulfate 2.5 mg /3 mL (0.083 %) Solution For Nebulization 2.5 mg INHALATION Q4H PRN (Reason: Wheezing) RF: 0 isosorbide mononitrate 30 mg Tablet Extended Release 24 Hr 30 mg PO QAM Qty: 0 RF: 0 lorazepam 0.5 mg tablet 0.5 mg PO TID PRN (Reason: Anxiety) RF: 0 cholecalciferol (vitamin D3) [Vitamin D3] 25 mcg (1,000 unit) Tablet 25 mcg PO DAILY RF: 0 cholecalciferol (vitamin D3) 1,250 mcg (50,000 unit) capsule 1,250 mcg PO WK RF: 0 tramadol 100 mg tablet 100 mg PO Q8 PRN (Reason: Pain) RF: 0 guaifenesin [Mucinex] 600 mg tablet extended release 12hr 600 mg PO Q12 PRN (Reason: Congestion) RF: 0 Changed warfarin 10 mg tablet 5 mg PO UD Qty: 0 RF: 0 buspirone 10 mg tablet 10 mg PO TID Qty: 0 RF: 0 Discontinued acetaminophen [Tylenol] 325 mg Tablet 325 - 650 mg PO DIRECTED PRN (Reason: Pain) RF: 0 ipratropium-albuterol 0.5 mg-3 mg(2.5 mg base)/3 mL Solution For Nebulization 3 ml INHALATION Q4H PRN (Reason: Shortness Of Breath Or Wheezing) RF: 0 trazodone 50 mg tablet 50 mg PO HS RF: 0 Discharge Orders: Discharge Order (Routine); Ordered 05/25/21 Ordered By: Ashli Aguilar Admission Data Admit Date/Time: 05/20/21 16:47 Attending Provider: Ashli Aguilar I. Admit Provider: Ashli Aguilar I. Primary Care Provider: Roger Alexandra Other Providers: Ashli Aguilar I. ; Dr Carlos ; Sakina Cesar ; Alonso Castillo ; [facility] Other Interventions: Discharge Summary Assessment (RN) Last Done: 05/25/21 11:32 PSY Interdisciplinary Discharge Planning Last Done: 05/21/21 12:32
[2021-05-25] MEDS: hydrOXYzine HCl 25 MG TAB PO PRN (12:00)
[2021-05-26] MEDS ORDERED: CHOLECALCIFEROL 1,000 UNITS 25 MCG TAB PO SCH (09:00)
== END 2021-05-25 13:11 | DRG 191 ==
LOC: ED 12:21 → 2N 16:47

== ENCOUNTER 2021-11-21 19:14 | Inpatient (IN) ==
[2021-11-21] MEDS ORDERED: ALBUT/IPRATROP 3MG/0.5MG NEB 3 ML VIAL NEB ONE (19:29)
[2021-11-21] MEDS ORDERED: guaiFENesin 600 MG TABCR PO STA (19:29)
[2021-11-21] MEDS ORDERED: SODIUM CHLORIDE 0.9% 1000ML 1,000 ML IV ONE (19:29)
[2021-11-21] MEDS ORDERED: dexAMETHasone**PF** 10 MG/ML VIAL IV ONE (19:29)
[2021-11-21] MEDS ORDERED: FAMOTIDINE 20MG IV PUSH 20 MG/5 ML SYR IV STA (19:29)
[2021-11-21] MEDS ORDERED: ACETAMINOPHEN 1,000 MG/100 ML VIAL IV STA (19:29)
[2021-11-21] MEDS ORDERED: ONDANSETRON INJ 2 MG/ML 2 ML VIAL IV STA (19:29)
--- NOTE | 2021-11-21 19:36 | Emergency Department Note ---
Impression & Plan Acute on chronic respiratory failure with hypoxia, COVID-19, Hypokalemia ED Provider Note NAME: YAZAN MCKEON AGE: 61 SEX: F ARRIVES VIA: Ambulance INFORMANT: Patient ED PROVIDER(S): Khang Arvizu MD CHIEF COMPLAINT: SOB, Covid-19 exposure PLAN: Disposition: Admit MEDICAL DECISION MAKING: The patient is a pleasant 61-year-old woman with a past medical history of chronic respiratory failure with hypoxia in setting of COPD, history of paroxy smal A. fib on warfarin, history of CVA presents to the emergency department via EMS for worsening shortness of breath with cough, congestion as well as feverishness, body aches, nausea, vomiting and diarrhea that evolved since November 15 in setting of her son and developing symptoms over being diagnosed with COVID-19. Per EMS report the patient was hypoxic to 87% on her home 3 L nasal cannula. She had severe expiratory wheezes which did improve after repeated nebulizer treatments by EMS. The patient reports she has had decreased oral intake due to her GI symptoms. She feels chest tightness but denies chest pain. On arrival the patient is acute on chronically ill-appearing with mild respiratory distress and increased work of breathing. She is afebrile with stable vital signs. Her O2 saturation is 93% on 4 L nasal cannula. EKG without overt acute ischemia. Chest x-ray with basilar interstitial thickening that is thought to be chronic. WBC 4.4K nonspecific. H/H and platelets within normal limits. INR is therapeutic at 2.1. VBG is unremarkable. Chemistry without metabolic acidosis. Potassium 2.8 and electrolytes otherwise without significant abnormality. LFTs are unremarkable. Troponin negative/undetectable. BNP is within normal limits. Lipase is not elevated. COVID-19 PCR was positive. Patient was treated with IV fluid hydration, dexamethasone, hour-long DuoNeb, Pepcid, Zofran, APAP, guaifenesin. However, given the patient's acute on chronic respiratory failure in the setting of COVID-19 infection she is in agreement with plan for admission. Case was discussed with Dr. Slade, [facility] hospitalist, who will evaluate the patient for admission. Triage Nursing notes reviewed and agree them. Prior medical records reviewed Vital Signs: reviewed and remarkable for hypoxia. Differential diagnosis: Reactive airway disease, pneumonia, pneumothorax, COPD, CHF, infections, cardiac ischemia, pulmonary embolism, musculoskeletal, gastrointestinal, as well as other pathologies. ER treatment provided: See below. Diagnostics interpreted by me: ECG: Normal sinus rhythm, 94 bpm, no ectopy, nonspecific ST abnormality, no overt ST elevation or depression, QTC 555, QRS 88. Cardiac Monitoring: An order for continuous cardiac monitoring was placed and demonstrated normal sinus rhythm, 94 bpm, no ectopy, Laboratory studies: See below Imaging studies: See below Consultation(s): Case was discussed with Dr. Sldae, [facility] hospitalist, who will evaluate the patient for admission. HPI: The patient is a pleasant 61-year-old woman with a past medical history of chronic respiratory failure with hypoxia in setting of COPD, history of paroxysmal A. fib on warfarin, history of CVA presents to the emergency department via EMS for worsening shortness of breath with cough, congestion as well as feverishness, body aches, nausea, vomiting and diarrhea that evolved si nce November 15 in setting of her son and developing symptoms over Camilo being diagnosed with COVID-19. Per EMS report the patient was hypoxic to 87% on her home 3 L nasal cannula. She had severe expiratory wheezes which did improve after repeated nebulizer treatments. The patient reports she has had decreased oral intake due to her GI symptoms. She feels chest tightness but denies chest pain. ROS: See above HPI for pertinent positives & negatives. A total of 10 systems reviewed and were otherwise negative. PAST MEDICAL HISTORY:See Below PAST SURGICAL HISTORY:See Below FAMILY HISTORY:See Below SOCIAL HISTORY:See Below HOME MEDICATIONS:See Below ALLERGIES:See Below VITALS:See Below PHYSICAL EXAMINATION: GENERAL: Awake, alert, acute on chronically ill-appearing, mild respiratory distress, BMI HENT: Normocephalic, atraumatic. Oropharynx mucous membranes. EYES: Normal conjunctiva. Sclera non-icteric. NECK: Supple. No nuchal rigidity. FROM. No JVD. RESPIRATORY: Diffuse wheezes with prolonged expiratory phase. Mild increase WOB. CARDIAC: Regular rate, normal rhythm. Extremities warm and well perfused. Pulses equal. ABDOMEN: Soft, non-distended. No tenderness to palpation. No rebound or guarding. No masses. RECTAL: Deferred. MUSCULOSKELETAL: Chest examination reveals no tenderness. The back is symmetrical on inspection without obvious abnormality. There is no CVA tenderness to palpation. No joint edema. LOWER EXTREMITIES: Calves are equal size bilaterally and non-tender. No edema. No discoloration. NEURO: Normal sensorium. No sensory or motor deficits noted. SKIN: No rash or jaundice noted. ED COURSE: Critical Care: I have personally spent greater than 35 minutes of critical care time in the direct management of this patient. This includes bedside care, interpretation of diagnostic studies, and testing, discussion with consultants, patient, and family members, and other required patient management activities. This 35 minutes is in excess of all separately billable procedures. Khang Arvizu MD Past Med/Surg History Medical History Anxiety and depression Atrial fibrillation Atypical chest pain Cerebrovascular disease Chronic pain on daily narcotics History of stroke "embolic stroke, underlying PFO" Morbid obesity PAF (paroxysmal atrial fibrillation) Submucosal lesion of stomach Noted on EGD 11/06/20 Supratherapeutic INR Surgical History Status post cholecystectomy Status post hysterectomy Family History Other Heart disease Social History Smoking Status: Former smoker Tobacco Type: Cigarettes Second Hand Exposure: No; Hx Alcohol Use: No Hx Substance Use: No Preferred Language: Syriac Communication Ability: Effective Multimedia Designer Required: No Beliefs That Will Affect Care: None Current Living Situation: Alone Current Living Situation Comment: in march Feels Safe at Home: Yes Assistive Devices: Special Shoe Allergies Allergies Allergy/AdvReac Type Severity Reaction Status Date / Time aspirin Allergy Unknown TAKES Verified 11/21/21 21:45 COUMADIN salicylates AdvReac Unknown ?DUE TO Verified 11/21/21 21:45 COUMADIN? Home Meds Home Medications Medication Instructions Recorded Confirmed cholecalciferol (vitamin D3) 1,250 1,250 mcg PO WK 05/20/21 11/21/21 mcg (50,000 unit) capsule lorazepam 0.5 mg tablet 0.5 mg PO TID PRN 05/20/21 11/21/21 tramadol 100 mg tablet 100 mg PO Q8 PRN 05/20/21 11/21/21 cholecalciferol (vitamin D3) 25 25 mcg PO HS 06/13/21 11/21/21 mcg (1,000 unit) capsule warfarin 2.5 mg tablet 7.5 mg PO 5XWK 06/13/21 11/21/21 warfarin 5 mg tablet 5 mg PO 2XWK 06/13/21 11/21/21 fluoxetine 20 mg capsule 20 mg PO QAM 11/21/21 11/21/21 mirtazapine 7.5 mg tablet 7.5 mg PO HS 11/21/21 11/21/21 nystatin 100,000 unit/gram topical 1 applic TOPICAL BID 11/21/21 11/21/21 powder (Ncamy) trazodone 150 mg tablet 150 mg PO HS 11/21/21 11/21/21 umeclidinium 62.5 mcg-vilanterol 1 inh INHALATION DAILY 11/21/21 11/21/21 25 mcg/actuation powdr for inhalation (Anoro Ellipta) Previous Rx's Medication Instructions Recorded isosorbide mononitrate 30 mg 30 mg PO QAM #0 tab 09/22/20 tablet,extended release 24 hr buspirone 10 mg tablet 10 mg PO TID #0 tab 05/25/21 Results & Data (ED) Vital Signs Vital Signs - 24 hr 11/21/21 19:28 11/21/21 19:30 11/21/21 19:35 Temperature 36.9 C Temperature Source Oral Pulse Rate 96 H Pulse Rate [Apical] Pulse Rhythm Regular Pulse Rhythm [Apical] Pulse Strength Normal Pulse Strength [Apical] Respiratory Rate 24 Respiratory Effort / Characteristics Spontaneous Short of Breath Short of Breath Respiratory Depth Shallow Shallow Respiratory Pattern Regular Regular Blood Pressure 151/86 H Blood Pressure [Right Arm] Blood Pressure Mean 107 Blood Pressure Mean [Right Arm] Pulse Oximetry 96 95 Oxygen Delivery Method Nasal Cannula Nasal Cannula Oxygen Flow Rate 4 4 Sepsis Recent Fever Within 48 Hours No Sepsis New/Unexplained Change in Mental Status No Sepsis Action Taken by Nursing Physician Notified 11/21/21 19:58 11/21/21 22:55 Temperature Temperature Source Pulse Rate Pulse Rate [Apical] 91 H 101 H Pulse Rhythm Pulse Rhythm [Apical] Regular Pulse Strength Pulse Strength [Apical] Normal Respiratory Rate 20 20 Respiratory Effort / Characteristics Non-Labored Spontaneous Non-Labored Respiratory Depth Normal Respiratory Pattern Blood Pressure Blood Pressure [Right Arm] 112/61 Blood Pressure Mean Blood Pressure Mean [Right Arm] 78 Pulse Oximetry 96 95 Oxygen Delivery Method Nasal Cannula Nasal Cannula Oxygen Flow Rate 5 4 Sepsis Recent Fever Within 48 Hours Sepsis New/Unexplained Change in Mental Status Sepsis Action Taken by Nursing Laboratory Data Attestation: I reviewed the patient's lab results. Result diagrams: 11/21/21 19:50 11/21/21 19:50 Lab Results 11/21/21 11/21/21 11/21/21 Range/Units 19:50 19:50 19:50 WBC 4.41 L (4.8-10.8) K/uL RBC 4.06 L (4.2-5.4) M/uL Hgb 12.1 (12.0-16.0) g/dL Hct 37.8 (37-47) % MCV 93.1 (80-100) fL MCH 29.8 (25-34) pg MCHC 32.0 (32-36) g/dL RDW Std Deviation 57.9 H (36.4-46.3) fL RDW Coeff of Ursula 16.9 H (11.5-14.5) % Plt Count 302 (130-400) K/uL MPV 9.2 (7.4-10.4) fL Neutrophils % (Manual) 30.7 % Lymphocytes % (Manual) 40.0 % Monocytes % (Manual) 3.5 % Eosinophils % (Manual) 0.4 % Plasma Cell % (Manual) 0.4 % Neutrophils # (Manual) 1.35 L (1.4-6.5) K/uL Total Absolute Neuts 1.35 L (1.4-6.5) K/uL Lymphocytes # (Manual) 1.76 (1.2-3.4) K/uL Total Abs Lymphocytes 2.88 (1.2-3.4) K/uL Monocytes # (Manual) 0.15 (0.11-0.59) K/uL Eosinophils # (Manual) 0.02 (0-0.5) K/uL Plasma Cell # (Manual) 0.02 H (0-0) K/uL Large Granular Lymphs 25.0 % # Lrg Granular Lymphs 1.10 K/uL Polychromasia 1+ PT (9.0-12.0) Seconds INR (0.9-1.1) VBG pH 7.41 (7.36-7.41) VBG pCO2 46 (38-50) mmHg VBG pO2 61 mmHg VBG HCO3 29 mmol/L VBG O2 Saturation 91.9 % VBG Base Excess 3.4 mEq/L Barometric Pressure 737.8 mm/Hg Sodium 140 (136-145) mmol/L Potassium 2.8 L (3.5-5.1) mmol/L Chloride 104 (98-107) mmol/L Carbon Dioxide 27 (21-32) mmol/L Anion Gap 9.0 (3-11) BUN 10 (7-18) mg/dl Creatinine 0.77 (0.6-1.2) mg/dl Est Cr Clr Drug Dosing 90.0 ml/min Est GFR ( Amer) 96.6 ml/min Est GFR (Non-Af Amer) 83.3 ml/min BUN/Creatinine Ratio 12.9 (10-20) Glucose 128 H (70-99) mg/dl Calcium 8.3 L (8.5-10.1) mg/dl Phosphorus 2.7 (2.5-4.9) mg/dl Magnesium 1.9 (1.8-2.4) mg/dl Total Bilirubin 0.2 (0.2-1) mg/dl AST 25 (15-37) U/L ALT 35 (12-78) Alkaline Phosphatase 91 (45-117) U/L Troponin I < 0.015 (0-0.045) ng/ml NT-Pro-B Natriuret Pep 43 (0-900) pg/ml Total Protein 6.6 (6.4-8.2) gm/dl Albumin 2.7 L (3.4-5.0) gm/dl Globulin 3.9 (2.5-4.0) gm/dl Albumin/Globulin Ratio 0.7 L (0.9-2) Lipase 66 L (73-393) U/L SARS-CoV-2 (PCR) (Negative) Influenza Type A (PCR) (Neg) Influenza Type B (PCR) (Neg) RSV (RT-PCR) (Neg) 11/21/21 11/21/21 Range/Units 19:50 19:56 WBC (4.8-10.8) K/uL RBC (4.2-5.4) M/uL Hgb (12.0-16.0) g/dL Hct (37-47) % MCV (80-100) fL MCH (25-34) pg MCHC (32-36) g/dL RDW Std Deviation (36.4-46.3) fL RDW Coeff of Ursula (11.5-14.5) % Plt Count (130-400) K/uL MPV (7.4-10.4) fL Neutrophils % (Manual) % Lymphocytes % (Manual) % Monocytes % (Manual) % Eosinophils % (Manual) % Plasma Cell % (Manual) % Neutrophils # (Manual) (1.4-6.5) K/uL Total Absolute Neuts (1.4-6.5) K/uL Lymphocytes # (Manual) (1.2-3.4) K/uL Total Abs Lymphocytes (1.2-3.4) K/uL Monocytes # (Manual) (0.11-0.59) K/uL Eosinophils # (Manual) (0-0.5) K/uL Plasma Cell # (Manual) (0-0) K/uL Large Granular Lymphs % # Lrg Granular Lymphs K/uL Polychromasia PT 20.1 H (9.0-12.0) Seconds INR 2.1 H (0.9-1.1) VBG pH (7.36-7.41) VBG pCO2 (38-50) mmHg VBG pO2 mmHg VBG HCO3 mmol/L VBG O2 Saturation % VBG Base Excess mEq/L Barometric Pressure mm/Hg Sodium (136-145) mmol/L Potassium (3.5-5.1) mmol/L Chloride (98-107) mmol/L Carbon Dioxide (21-32) mmol/L Anion Gap (3-11) BUN (7-18) mg/dl Creatinine (0.6-1.2) mg/dl Est Cr Clr Drug Dosing ml/min Est GFR ( Amer) ml/min Est GFR (Non-Af Amer) ml/min BUN/Creatinine Ratio (10-20) Glucose (70-99) mg/dl Calcium (8.5-10.1) mg/dl Phosphorus (2.5-4.9) mg/dl Magnesium (1.8-2.4) mg/dl Total Bilirubin (0.2-1) mg/dl AST (15-37) U/L ALT (12-78) Alkaline Phosphatase (45-117) U/L Troponin I (0-0.045) ng/ml NT-Pro-B Natriuret Pep (0-900) pg/ml Total Protein (6.4-8.2) gm/dl Albumin (3.4-5.0) gm/dl Globulin (2.5-4.0) gm/dl Albumin/Globulin Ratio (0.9-2) Lipase (73-393) U/L SARS-CoV-2 (PCR) POSITIVE A* (Negative) Influenza Type A (PCR) Negative (Neg) Influenza Type B (PCR) Negative (Neg) RSV (RT-PCR) Negative (Neg) Administered Medications Remdesivir 200 mg/ Sodium (Chloride) 250 mls @ 125 mls/hr IV ONE STA; Protocol Stop: 11/22/21 00:47 Last Admin: 11/21/21 23:36 Dose: 125 mls/hr Documented by: [id number] Discontinued Medications Albuterol (Albut/Ipratrop 3mg/0.5mg Neb 3 Ml Vial) 12 ml NEB ONE ONE; Protocol Stop: 11/21/21 19:30 Last Admin: 11/21/21 19:57 Dose: 12 ml Documented by: [id number] Dexamethasone Sodium Phosphate (DexamethasonePf 10 Mg/Ml Vial) 10 mg IV NOW ONE Stop: 11/21/21 19:30 Last Admin: 11/21/21 20:01 Dose: 10 mg Documented by: [id number] Guaifenesin (Guaifenesin 600 Mg Tabcr) 600 mg PO NOW STA Stop: 11/21/21 19:30 Last Admin: 11/21/21 20:02 Dose: 600 mg Documented by: [id number] Sodium Chloride (Nss 1000ml) 1,000 mls @ 999 mls/hr IV .Q1H1M ONE Stop: 11/21/21 20:29 Last Infusion: 11/21/21 22:05 Dose: 0 mls/hr Documented by: [id number] Admin: 11/21/21 20:02 Dose: 999 mls/hr Documented by: [id number] Acetaminophen (Ofirmev) 1,000 mg in 100 mls @ 400 mls/hr IV NOW STA Stop: 11/21/21 19:43 Last Infusion: 11/21/21 22:05 Dose: 0 mls/hr Documented by: [id number] Admin: 11/21/21 20:01 Dose: 400 mls/hr Documented by: [id number] Famotidine (Pepcid 20mg Iv Push) 20 mg in 5 mls @ 2.5 mls/min IV NOW STA Stop: 11/21/21 19:30 Last Admin: 11/21/21 20:01 Dose: 2.5 mls/min Documented by: [id number] Ondansetron HCl (Ondansetron Inj 2 Mg/Ml 2 Ml Vial) 4 mg IV NOW STA Stop: 11/21/21 19:30 Last Admin: 11/21/21 20:01 Dose: 4 mg Documented by: [id number] Oxycodone HCl (Oxycodone Hcl Ir 5 Mg Tab (Immediate Release)) 5 mg PO NOW STA Stop: 11/21/21 22:41 Last Admin: 11/21/21 22:54 Dose: 5 mg Documented by: [id number] Imaging Data Radiologist's Impression: Chest X-Ray 11/21/21 19:30 XR chest 1V portable HISTORY: Atypical Chest Pain COMPARISON: Chest 07/03/2021. FINDINGS: The lungs are hyperexpanded with mild apical predominant emphysematous changes. The heart is normal in size. No pleural effusions. No pneumothorax. Old, healed left fourth rib fracture. No new focal lung consolidations to suggest pneumonia. No evidence for pulmonary edema. Mild interstitial thickening at the lung bases remains unchanged and is likely chronic. IMPRESSION: No significant change compared to the prior study. No acute process. ACT 112: Negative or not required by law. Electronically signed by: Otto Hendrickson M.D. 11/21/2021 8:38 PM Discharge Plan Visit Data Chief Complaint: Shortness of Breath/Dyspnea Stated Complaint: SOB/WEAKNESS ED Provider: Khang Arvizu Discharge Problem: Acute on chronic respiratory failure with hypoxia, COVID-19, Hypokalemia Forms Stand Alone Forms: My [facility] [employer] Prescriptions Prescriptions: No Action cholecalciferol (vitamin D3) 25 mcg (1,000 unit) capsule 25 mcg PO HS RF: 0 warfarin 2.5 mg tablet 7.5 mg PO 5XWK RF: 0 warfarin 5 mg tablet 5 mg PO 2XWK RF: 0 isosorbide mononitrate 30 mg Tablet Extended Release 24 Hr 30 mg PO QAM Qty: 0 RF: 0 trazodone 150 mg tablet 150 mg PO HS RF: 0 nystatin [Nyamyc] 100,000 unit/gram powder 1 applic TOPICAL BID RF: 0 fluoxetine 20 mg capsule 20 mg PO QAM RF: 0 mirtazapine 7.5 mg tablet 7.5 mg PO HS RF: 0 Anoro Ellipta 62.5-25 mcg/actuation blister with device 1 inh INHALATION DAILY RF: 0 lorazepam 0.5 mg tablet 0.5 mg PO TID PRN (Reason: Anxiety) RF: 0 cholecalciferol (vitamin D3) 1,250 mcg (50,000 unit) capsule 1,250 mcg PO WK RF: 0 tramadol 100 mg tablet 100 mg PO Q8 PRN (Reason: Pain) RF: 0 buspirone 10 mg tablet 10 mg PO TID Qty: 0 RF: 0 Referrals Referrals: Roger Alexandra MD [Primary Care Provider] -
[2021-11-21 20:05] LABS: Hematocrit (blood only) 37.8 % (37-47); Hemoglobin 12.1 g/dL (12.0-16.0); Mean Corpuscular Hemoglobin 29.8 pg (25-34); Mean Corpuscular Volume 93.1 fL (80-100); Mean Platelet Volume 9.2 fL (7.4-10.4); Platelet Count 302 K/uL (130-400); RDW Coefficient of Variation 16.9 % (11.5-14.5); RDW Standard Deviation 57.9 fL (36.4-46.3); Red Blood Count 4.06 M/uL (4.2-5.4); White Blood Count 4.41 K/uL (4.8-10.8)
[2021-11-21 20:09] LABS: Base Excess VBG 3.4 mEq/L; Oxygen Saturation VBG 91.9 %; pH VBG 7.41 (7.36-7.41)
[2021-11-21 20:14] LABS: INR 2.1 (0.9-1.1); Prothrombin Time 20.1 Seconds (9.0-12.0)
[2021-11-21 20:25] LABS: Alanine Aminotransferase 35 (12-78); Albumin Level 2.7 gm/dl (3.4-5.0); Aspartate Aminotransferase 25 U/L (15-37); BUN Creatinine Ratio 12.9 (10-20); Blood Urea Nitrogen 10 mg/dl (7-18); Calcium 8.3 mg/dl (8.5-10.1); Carbon Dioxide 27 mmol/L (21-32); Chloride 104 mmol/L (98-107); Est GFR (African American) 96.6 ml/min; Est GFR (Non-African American) 83.3 ml/min; Glucose 128 mg/dl (70-99); Lipase 66 U/L (73-393); Magnesium 1.9 mg/dl (1.8-2.4); Potassium 2.8 mmol/L (3.5-5.1); Sodium 140 mmol/L (136-145)
[2021-11-21 20:30] LABS: Albumin Globulin Ratio 0.7 (0.9-2); Alkaline Phosphatase 91 U/L (45-117); Globulin 3.9 gm/dl (2.5-4.0); NT Pro B Type Natriuretic Pept 43 pg/ml (0-900); Phosphorus 2.7 mg/dl (2.5-4.9); Total Protein 6.6 gm/dl (6.4-8.2); Troponin I < 0.015 ng/ml (0-0.045)
[2021-11-21 20:39] LABS: Bilirubin,Total 0.2 mg/dl (0.2-1)
--- NOTE | 2021-11-21 20:39 | XRay Report ---
XR chest 1V portable HISTORY: Atypical Chest Pain COMPARISON: Chest 07/03/2021. FINDINGS: The lungs are hyperexpanded with mild apical predominant emphysematous changes. The heart i s normal in size. No pleural effusions. No pneumothorax. Old, healed left fourth rib fracture. No new focal lung consolidations to suggest pneumonia. No evidence for pulmonary edema. Mild interstitial t hickening at the lung bases remains unchanged and is likely chronic. IMPRESSION: No significant change compared to the prior study. No acute process. ACT 112: Negative or not required by law. Electronically signed by: Otto Hendrickson M.D. 11/21/2021 8:38 PM
[2021-11-21 20:58] LABS: ALC (manual) 2.88 K/uL (1.2-3.4); ANC (manual) 1.35 K/uL (1.4-6.5); Eosinophils # (manual) 0.02 K/uL (0-0.5); Eosinophils % (manual) 0.4 %; Lymphocytes # (manual) 1.76 K/uL (1.2-3.4); Monocytes # (manual) 0.15 K/uL (0.11-0.59); Monocytes % (manual) 3.5 %; Neutrophils # (manual) 1.35 K/uL (1.4-6.5); Neutrophils % (manual) 30.7 %; Plasma Cells # (manual) 0.02 K/uL (0-0); Plasma Cells % (manual) 0.4 %; Polychromasia 1+
[2021-11-21 21:57] LABS: Influenza A virus by PCR Negative (Neg); Influenza B virus by PCR Negative (Neg); RSV by PCR Negative (Neg)
[2021-11-21 22:02] LABS: SARS CoV2 RNA(COVID-19) InHosp POSITIVE (Negative)
[2021-11-21] MEDS ORDERED: oxyCODONE HCL IR 5 MG TAB (IMMEDIATE RELEASE) PO STA (22:40)
[2021-11-21] MEDS ORDERED: REMDESIVIR 200 MG in SODIUM CHLORIDE 0.9% 210 ML IV STA (22:48)
[2021-11-22] MEDS ORDERED: ONDANSETRON INJ 2 MG/ML 2 ML VIAL IV PRN (01:20)
[2021-11-22] MEDS ORDERED: SODIUM CHLORIDE 0.9% 1000ML 1,000 ML IV SCH (01:20)
[2021-11-22] MEDS ORDERED: ACETAMINOPHEN 325 MG TAB PO PRN (01:20)
[2021-11-22] MEDS ORDERED: XOPENEX/ATROVENT 1.25mg/0.5MG NEB COMBO NEB SCH (01:20)
--- NOTE | 2021-11-22 01:37 | History and Physical Report ---
DATE OF ADMISSION: 11/21/2021 CHIEF COMPLAINT: Shortness of breath. HISTORY OF PRESENT ILLNESS: This is a 61-year-old female with past medical history significant for COPD, chronic respiratory failure on 3 liters oxygen, hypothyroidism, sleep apnea, history of paroxysmal atrial fibrillation, history of idiopathic cardiomyopathy, patent foramen ovale, grade I diastolic dysfunction, morbid obesity, irritable bowel syndrome, history of narcotic addiction, chronic bilateral low back pain, von Willebrand disease, depression, generalized anxiety disorder, history of multiple strokes, PTSD, noncompliance with medication, who lives alone, ambulates with a walker. Son and granddaughter live close by. Brought in because of one week of having lot of cough and greenish phlegm, headache, some nausea, shortness of breath and generalized body weakness, feeling hot and cold and she is not COVID vaccinated and COVID test came back positive in the ER .On 3 liters oxygen at home. Currently, requiring 4 liters. She is afebrile in the ER. The patient says that she had no chest discomfort, cough, no abdominal pain, no diarrhea or constipation. No blood in the stool or black stools. Normal bladder movements. She is chronically incontinent of urine. She says lot of headache and asking for pain medication, vision is not good at baseline, has lot of sore throat, no runny nose. Poor appetite. ALLERGIES: ASPIRIN AND SALICYLATE. PAST MEDICAL HISTORY: As mentioned above. PAST SURGICAL HISTORY: Colonoscopy, colonoscopy with biopsy, EGDs, EGD with biopsy, EGD with endoscopic ultrasound, laparoscopic inguinal hernia repair, cholecystectomy, total hysterectomy and bilateral salpingo-oophorectomy. MEDICATIONS: The patient is on buspirone 10 mg p.o. t.i.d., vitamin D 25 mcg at bedtime, fluoxetine 20 mg p.o. a.m., isosorbide mononitrate 30 mg p.o. a.m., Ativan 0.5 mg p.o. t.i.d. p.r.n., mirtazapine 7.5 mg p.o. at bedtime, tramadol 100 mg p.o. 8 hours p.r.n., trazodone 150 mg p.o. at bedtime, Anoro Ellipta 1 inhalation daily, Coumadin 7.5 mg 5 times a week and 5 mg 2 times a week, Lasix 20 mg p.o. daily p.r.n. for edema. FAMILY HISTORY: Significant for father has asthma, heart disorder and schizophrenia; mother has COPD, hepatitis. Two sons with von Willebrand disease. Sister has sleep apnea, ADHD, and epilepsy. SOCIAL HISTORY: , currently lives alone. Son lives close by. Former smoker, quit in 2014, smoked 1/4 pack a day for 22 years. No alcohol use. No drug use. REVIEW OF SYSTEMS: As per HPI. Rest of the review of systems is negative. PHYSICAL EXAMINATION: GENERAL: The patient is morbidly obese, not in acute distress. VITAL SIGNS: Temperature 36.9, pulse 101, respiratory rate 20, blood pressure 112/61, oxygen 95% on 4 liters. HEENT: Pupils equal, round and reactive to light. Oral mucosa dry. NECK: No JVD, no neck masses. CARDIOVASCULAR: S1 and S2 heard. Regular rate and rhythm. No murmur, no gallop. RESPIRATORY SYSTEM: Normal AP diameter. No accessory muscle use. Bilateral wheezing and rhonchi heard. No crackles. ABDOMEN: Soft, bowel sounds present, nontender, no distention. CENTRAL NERVOUS SYSTEM: Cranial nerves II-XII grossly intact, nonfocal. EXTREMITIES: No edema, no erythema seen. LABORATORY DATA: WBC 4.4, hemoglobin 12.1, hematocrit 37.8, platelets 302. PT 20.1, INR 2.1. Venous blood gas, pH of 7.4. Sodium 140, potassium 2.8, chloride 104, bicarbonate 27, BUN 10, creatinine 0.7, serum glucose 128, calcium 8.3, phosphorus 2.7, magnesium 1.9, total bilirubin 0.2, AST 25, ALT 35, alkaline phosphatase 91. Troponin I less than 0.015. Lipase 66. SARS-CoV-2 PCR positive. Influenza A and B negative. RSV PCR negative. IMAGING DATA: Chest x-ray, no significant change. EKG: Normal sinus rhythm at 94. Nonspecific ST abnormalities. Prolonged QT. ASSESSMENT AND PLAN: This 61-year-old female who presents with COVID symptoms and found to have COVID positive. 1. Acute on chronic respiratory failure, at baseline requires 3 liters of oxygen, history of chronic obstructive pulmonary disease, diastolic congestive heart failure, currently COVID positive and requiring 4-5 liters of oxygen. Meets criteria for remdesivir and steroids, which will be started. Follow the remdesivir, labs. Continue home inhalers with nebs around the clock and p.r.n. Closely monitor in the tele floor. 2. History of paroxysmal atrial fibrillation: Rate is under control. Continue her Coumadin. Follow PT/INR. 3. History of depression, anxiety, posttraumatic stress disorder: Continue home medication fluoxetine and Ativan p.r.n. and Remeron and trazodone. 4. Chronic pain: Continue tramadol p.r.n. 5. History of cerebrovascular accident, history of embolic stroke. Continue Coumadin. 6. Deep venous thrombosis prophylaxis: On heparin. DISPOSITION: Closely monitor in the tele floor. Level 1 full code. Expect to discharge home and follow with family doctor. Job ID: [id number] [facility]
[2021-11-22] MEDS ORDERED: SODIUM CHLORIDE 0.9% 10ML FLUSH IV SCH (01:45)
[2021-11-22] MEDS: traMADol HCL 50 MG TABLET PO PRN ×3 (01:56→20:25)
[2021-11-22] MEDS: DOXYCYCLINE HYCLATE 100 MG in DEXTROSE 5% 100 ML IV SCH ×2 (02:10→15:50)
[2021-11-22] MEDS: IPRATROPIUM BROMIDE NEB SOLN 0.02% 2.5 ML VIAL INH SCH ×4 (03:15→20:00)
[2021-11-22] MEDS: LEVALBUTEROL 1.25MG/0.5ML NEB INH SCH ×4 (03:16→20:00)
[2021-11-22] MEDS ORDERED: MIRTAZAPINE TAB 15 MG TAB PO ONE (03:36)
[2021-11-22 05:57] LABS: Hematocrit (blood only) 37.9 % (37-47); Hemoglobin 11.7 g/dL (12.0-16.0); Lymphocytes # (auto) 0.42 K/uL (1.2-3.4); Lymphocytes % (auto) 14.2 %; Mean Corpuscular Hemoglobin 29.3 pg (25-34); Mean Corpuscular Hgb Conc 30.9 g/dL (32-36); Monocytes # (auto) 0.04 K/uL (0.11-0.59); Monocytes % (auto) 1.4 %; Neutrophils # (auto) 2.49 K/uL (1.4-6.5); Neutrophils % (auto) 84.4 %; Platelet Count 280 K/uL (130-400); RDW Coefficient of Variation 17.2 % (11.5-14.5); RDW Standard Deviation 60.3 fL (36.4-46.3); Red Blood Count 3.99 M/uL (4.2-5.4); White Blood Count 2.95 K/uL (4.8-10.8)
[2021-11-22 06:24] LABS: INR 2.1 (0.9-1.1); Prothrombin Time 19.8 Seconds (9.0-12.0)
[2021-11-22 06:29] LABS: Alanine Aminotransferase 29 (12-78); Aspartate Aminotransferase 18 U/L (15-37); BUN Creatinine Ratio 7.9 (10-20); Bilirubin Direct < 0.1 mg/dl (0-0.2); Blood Urea Nitrogen 8 mg/dl (7-18); Calcium 8.5 mg/dl (8.5-10.1); Carbon Dioxide 20 mmol/L (21-32); Chloride 106 mmol/L (98-107); Creatinine Clr Calc Pharmacy 66.6 ml/min; Est GFR (African American) 67.2 ml/min; Est GFR (Non-African American) 57.9 ml/min; Glucose 228 mg/dl (70-99); Sodium 138 mmol/L (136-145)
[2021-11-22 06:32] LABS: Alkaline Phosphatase 84 U/L (45-117); Bilirubin,Total 0.2 mg/dl (0.2-1); Total Protein 6.5 gm/dl (6.4-8.2)
[2021-11-22 07:25] LABS: Albumin Level 2.8 gm/dl (3.4-5.0)
[2021-11-22] MEDS: dexAMETHasone 6 MG in SYRINGE 0 ML IV SCH (09:00)
[2021-11-22] MEDS: NYSTATIN POWDER 15GM BTL EXT SCH ×2 (09:00→23:03)
[2021-11-22] MEDS: busPIRone 5 MG TAB PO SCH ×3 (09:01→20:48)
[2021-11-22] MEDS: UMECLIDINIUM/VILANTEROL 62.5/25MCG 7 PUFFS/INHALER INH SCH (09:01)
[2021-11-22] MEDS: FLUoxetine HCL 20 MG CAP PO SCH (09:02)
[2021-11-22] MEDS: ISOSORBIDE MONO EXTENDED REL 30 MG TABCR PO SCH (09:02)
[2021-11-22] MEDS ORDERED: POTASSIUM CHLORIDE CRTAB 20 MEQ TABCR PO STA (09:43)
[2021-11-22] MEDS: POTASSIUM CHLORIDE / WTR 10 MEQ/100 ML PLCT IV SCH ×2 (10:15→11:47)
--- NOTE | 2021-11-22 11:01 | Hospitalist Progress Note ---
Date of Service November 22, 2021 Assessment & Plan (1) Acute on chronic respiratory failure with hypoxia: (2) COVID-19: (3) Degenerative joint disease of left hip: (4) Anxiety and depression: (5) Chronic pain: (6) History of CVA (cerebrovascular accident): Plan: Continue oxygen supplementation. Oxygen has all weaned down to 3 L/min which is patient's baseline. Patient has COPD Continue dexamethasone and remdesivir. On doxycycline Monitor inflammatory markers Patient is still on chronic tramadol for chronic pain. PDMP reviewed. Continue tramadol as needed for now. Scheduled Tylenol. For history of CVA, embolic. Continue warfarin. INR is therapeutic For patient anxiety and depression, continue home medication including buspirone, fluoxetine and as needed lorazepam Admission and Anticipated Discharge Date Admission Date: November 22, 2021 Subjective Patient seen and examined. Reports cough, mild shortness of breath, chronic dyspnea on exertion. Reports headache. States she has chronic intermittent headaches but this is increased since being sick. Denies any dizziness, blurry vision. Reports nausea. Denies vomiting, abdominal pain, Denies chest pain, palpitations. Reports loose stool. Denies dyschezia or melena. Reports urinary incontinence which is chronic. Denies dysuria Physical Exam Constitutional: + well hydrated; no acute distress Eyes: PERRL, conjunctivae normal, anicteric sclerae ENMT: external ear and nose normal, oropharynx normal Neck: No neck stiffness. Respiratory: On nasal cannula 3 L/min, scattered rhonchi. Cardiovascular: Rate/Rhythm: regular rate and regular rhythm S1-S2 Gastrointestinal (Abdomen): normal bowel sounds, soft, nontender, no hepatosplenomegaly Musculoskeletal: No pedal edema Neurologic: PERRL, EOMI, accommodation nl, no face palsy, no dysarthria Results & Data Results & Data ([facility]) Vital Signs (Past 12 Hours) Vital Signs Temp Pulse Resp BP Pulse Ox Pulse Ox 11/22/21 10:38 36.9 C 89 18 131/66 98 11/22/21 08:55 85 15 119/68 97 11/22/21 08:49 98 11/22/21 08:45 82 18 88 L 11/22/21 07:11 95 11/22/21 07:06 87 L 11/22/21 06:59 95 11/22/21 06:11 91 H 18 126/62 95 11/22/21 03:59 94 H 18 144/67 H 96 11/22/21 03:17 97 H 24 94 11/22/21 00:00 96 H 18 113/56 L 96 Laboratory Results Abnormal lab results 11/21/21 11/21/21 11/21/21 Range/Units 19:50 19:50 19:50 WBC 4.41 L (4.8-10.8) K/uL RBC 4.06 L (4.2-5.4) M/uL Hgb (12.0-16.0) g/dL MCHC (32-36) g/dL RDW Std Deviation 57.9 H (36.4-46.3) fL RDW Coeff of Ursula 16.9 H (11.5-14.5) % Lymph # (Auto) (1.2-3.4) K/uL Cottle # (Auto) (0.11-0.59) K/uL Neutrophils # (Manual) 1.35 L (1.4-6.5) K/uL Total Absolute Neuts 1.35 L (1.4-6.5) K/uL Plasma Cell # (Manual) 0.02 H (0-0) K/uL PT 20.1 H (9.0-12.0) Seconds INR 2.1 H (0.9-1.1) Potassium 2.8 L (3.5-5.1) mmol/L Carbon Dioxide (21-32) mmol/L Anion Gap (3-11) BUN/Creatinine Ratio (10-20) Glucose 128 H (70-99) mg/dl Calcium 8.3 L (8.5-10.1) mg/dl Albumin 2.7 L (3.4-5.0) gm/dl Albumin/Globulin Ratio 0.7 L (0.9-2) Lipase 66 L (73-393) U/L SARS-CoV-2 (PCR) (Negative) 11/21/21 11/22/21 11/22/21 Range/Units 19:56 05:36 05:36 WBC 2.95 L (4.8-10.8) K/uL RBC 3.99 L (4.2-5.4) M/uL Hgb 11.7 L (12.0-16.0) g/dL MCHC 30.9 L (32-36) g/dL RDW Std Deviation 60.3 H (36.4-46.3) fL RDW Coeff of Ursula 17.2 H (11.5-14.5) % Lymph # (Auto) 0.42 L (1.2-3.4) K/uL Cottle # (Auto) 0.04 L (0.11-0.59) K/uL Neutrophils # (Manual) (1.4-6.5) K/uL Total Absolute Neuts (1.4-6.5) K/uL Plasma Cell # (Manual) (0-0) K/uL PT (9.0-12.0) Seconds INR (0.9-1.1) Potassium 3.0 L (3.5-5.1) mmol/L Carbon Dioxide 20 L (21-32) mmol/L Anion Gap 12.0 H (3-11) BUN/Creatinine Ratio 7.9 L (10-20) Glucose 228 H (70-99) mg/dl Calcium (8.5-10.1) mg/dl Albumin 2.8 L (3.4-5.0) gm/dl Albumin/Globulin Ratio (0.9-2) Lipase (73-393) U/L SARS-CoV-2 (PCR) POSITIVE A* (Negative) 11/22/21 Range/Units 05:36 WBC (4.8-10.8) K/uL RBC (4.2-5.4) M/uL Hgb (12.0-16.0) g/dL MCHC (32-36) g/dL RDW Std Deviation (36.4-46.3) fL RDW Coeff of Ursula (11.5-14.5) % Lymph # (Auto) (1.2-3.4) K/uL Cottle # (Auto) (0.11-0.59) K/uL Neutrophils # (Manual) (1.4-6.5) K/uL Total Absolute Neuts (1.4-6.5) K/uL Plasma Cell # (Manual) (0-0) K/uL PT 19.8 H (9.0-12.0) Seconds INR 2.1 H (0.9-1.1) Potassium (3.5-5.1) mmol/L Carbon Dioxide (21-32) mmol/L Anion Gap (3-11) BUN/Creatinine Ratio (10-20) Glucose (70-99) mg/dl Calcium (8.5-10.1) mg/dl Albumin (3.4-5.0) gm/dl Albumin/Globulin Ratio (0.9-2) Lipase (73-393) U/L SARS-CoV-2 (PCR) (Negative)
[2021-11-22] MEDS: ACETAMINOPHEN 325 MG TAB PO SCH ×2 (13:40→18:10)
[2021-11-22] MEDS: LORazepam 0.5 MG TAB PO PRN ×2 (13:49→22:31)
[2021-11-22] MEDS: WARFARIN SOD 7.5 MG TAB PO SCH (15:50)
[2021-11-22] MEDS: LIDOCAINE 5% 1 PATCH TD SCH (17:37)
[2021-11-22] MEDS: REMDESIVIR 100 MG in SODIUM CHLORIDE 0.9% 230 ML IV SCH (20:33)
[2021-11-22] MEDS ORDERED: KETOROLAC TROMETHAMINE 15 MG/ML VIAL IV ONE (20:45)
[2021-11-22] MEDS: CHOLECALCIFEROL 1,000 UNITS 25 MCG TAB PO SCH (20:48)
[2021-11-22] MEDS: traZODone HCL 50 MG TAB PO SCH (20:48)
[2021-11-22] MEDS: MIRTAZAPINE TAB 15 MG TAB PO SCH (20:48)
[2021-11-22] MEDS: SODIUM CHLORIDE 0.9% 10ML FLUSH IV SCH (23:03)
[2021-11-23] MEDS: IPRATROPIUM BROMIDE NEB SOLN 0.02% 2.5 ML VIAL INH SCH ×4 (01:00→19:22)
[2021-11-23] MEDS: LEVALBUTEROL 1.25MG/0.5ML NEB INH SCH ×4 (01:00→19:22)
[2021-11-23] MEDS: ACETAMINOPHEN 325 MG TAB PO SCH ×4 (01:13→18:22)
[2021-11-23] MEDS: DOXYCYCLINE HYCLATE 100 MG in DEXTROSE 5% 100 ML IV SCH ×2 (02:58→14:13)
[2021-11-23 08:49] LABS: Creatinine Clr Calc Pharmacy 97.7 ml/min; Est GFR (African American) 106.5 ml/min; Est GFR (Non-African American) 91.9 ml/min
[2021-11-23 08:51] LABS: INR 2.5 (0.9-1.1)
[2021-11-23] MEDS: traMADol HCL 50 MG TABLET PO PRN ×3 (09:18→21:22)
[2021-11-23] MEDS: FLUoxetine HCL 20 MG CAP PO SCH (09:19)
[2021-11-23] MEDS: ISOSORBIDE MONO EXTENDED REL 30 MG TABCR PO SCH (09:19)
[2021-11-23] MEDS: dexAMETHasone 6 MG in SYRINGE 0 ML IV SCH (09:19)
[2021-11-23] MEDS: busPIRone 5 MG TAB PO SCH ×3 (09:19→21:22)
[2021-11-23] MEDS: LORazepam 0.5 MG TAB PO PRN ×3 (09:19→21:22)
[2021-11-23] MEDS: LIDOCAINE 5% 1 PATCH TD SCH (09:23)
[2021-11-23] MEDS: NYSTATIN POWDER 15GM BTL EXT SCH ×2 (10:36→21:59)
[2021-11-23] MEDS: UMECLIDINIUM/VILANTEROL 62.5/25MCG 7 PUFFS/INHALER INH SCH (10:36)
--- NOTE | 2021-11-23 11:32 | Hospitalist Progress Note ---
Date of Service November 23, 2021 Assessment & Plan (1) Acute on chronic respiratory failure with hypoxia: (2) COVID-19: (3) Degenerative joint disease of left hip: (4) Anxiety and depression: (5) Chronic pain: (6) History of CVA (cerebrovascular accident): Plan: Continue oxygen supplementation. Oxygen has been weaned down to 3 L/min which is patient's baseline. Patient has COPD Continue dexamethasone and remdesivir. On doxycycline Monitor inflammatory markers Continue tramadol prn. Discussed with patient that opioid is not used for headache. She agreed to take scheduled tylenol CT head showed old infarct and no acute abnormalities If headache persists, may try NSAIDs sparingly as patient is on warfarin Awaiting BMP to assess potassium level as patient was hypokalemic yesterday For history of CVA, embolic. Continue warfarin. INR is therapeutic For patient anxiety and depression, continue home medication including buspirone, fluoxetine and as needed lorazepam Admission and Anticipated Discharge Date Admission Date: November 22, 2021 Subjective Patient seen and examined Patient reports acute persistent headache which is severe and worsening at home right-sided referred to the back. Reports persistent cough, shortness of breath and chest tightness. Reports generalized weakness. Patient declined scheduled Tylenol and lidocaine patch requesting for stronger pain regimen. Denies any fevers, chills, nausea, vomiting Denies abdominal pain, diarrhea Denies dysuria, frequency, urgency Currently on 3 L/min which is patient's baseline oxygen Physical Exam Constitutional: + well hydrated; no acute distress Eyes: PERRL, conjunctivae normal, anicteric sclerae ENMT: external ear and nose normal, oropharynx normal Neck: No neck stiffness or tenderness noted Respiratory: On nasal cannula, expiratory rhonchi Cardiovascular: Rate/Rhythm: regular rate and regular rhythm S1-S2 Gastrointestinal (Abdomen): normal bowel sounds, soft, nontender, no hepatosplenomegaly Neurologic: PERRL, EOMI, accommodation nl, no face palsy, no dysarthria Psychiatric: Alert and oriented x3, anxious Results & Data Results & Data ([facility]) Vital Signs (Past 12 Hours) Vital Signs Temp Pulse Pulse Resp BP Pulse Ox 11/23/21 07:33 70 18 99 11/23/21 06:57 36.7 C 69 15 98/61 L 95 11/23/21 04:37 90 11/23/21 03:00 36.7 C 79 16 96/62 L 95 Laboratory Results Abnormal lab results 11/23/21 11/23/21 Range/Units 07:55 07:55 PT 24.0 H (9.0-12.0) Seconds INR 2.5 H (0.9-1.1) AST 13 L (15-37) U/L
--- NOTE | 2021-11-23 12:18 | CT Scan Report ---
HEAD CT NONCONTRAST CT DOSE: 623.48 mGy.cm HISTORY: Acute persistent headache TECHNIQUE: Multiaxial CT images of the head were performed without the use of intravenous contrast. A utomated exposure control was utilized for this study. A dose lowering technique was utilized adheri ng to the principles of ALARA. Comparison: Head CT 09/12/2020. Findings: The paranasal sinuses and mastoid air cells are clear. Old small right frontal lobe infarct and old small left frontotemporal infarct, unchanged. There is no mass, hematoma, midline shift, acu te infarct. Atrophy and microvascular ischemic changes are again noted. Impression: Old infarcts as described above. No acute intracranial abnormality. ACT 112: Negative or not required by law. Electronically signed by: Otto Hendrickson M.D. 11/23/2021 12:17 PM
[2021-11-23 16:01] LABS: BUN Creatinine Ratio 23.2 (10-20); Calcium 8.6 mg/dl (8.5-10.1); Creatinine Clr Calc Pharmacy 71.5 ml/min; Est GFR (African American) 73.1 ml/min; Potassium 4.5 mmol/L (3.5-5.1)
[2021-11-23] MEDS: WARFARIN SOD 7.5 MG TAB PO SCH (16:44)
[2021-11-23] MEDS: NITROGLYCERIN SL 0.4 MG/TAB TAB SL PRN ×2 (16:44→16:54)
--- NOTE | 2021-11-23 17:30 | Electrocardiogram Report ---
Test Reason : Blood Pressure : / mmHG Vent. Rate : 094 BPM Atrial Rate : 094 BPM P-R Int : 144 ms QRS Dur : 088 ms QT Int : 412 ms P-R-T Axes : 027 -03 061 degrees QTc Int : 516 ms Poor data quality, interpretation may be adversely affected Normal sinus rhythm Low voltage QRS Nonspecific ST abnormality Prolonged QT Abnormal ECG When compared with ECG of 03-JUL-2021 22:19, QT has lengthened Confirmed by Live Warren ([id number]) on 11/23/2021 5:30:08 PM Referred By: REFERRED SELF Confirmed By:Live Warren
[2021-11-23] MEDS: MIRTAZAPINE TAB 15 MG TAB PO SCH (21:22)
[2021-11-23] MEDS: REMDESIVIR 100 MG in SODIUM CHLORIDE 0.9% 230 ML IV SCH (21:57)
[2021-11-23] MEDS: traZODone HCL 50 MG TAB PO SCH (21:57)
[2021-11-23] MEDS: CHOLECALCIFEROL 1,000 UNITS 25 MCG TAB PO SCH (21:59)
[2021-11-24] MEDS: IPRATROPIUM BROMIDE NEB SOLN 0.02% 2.5 ML VIAL INH SCH ×2 (00:38→08:24)
[2021-11-24] MEDS: LEVALBUTEROL 1.25MG/0.5ML NEB INH SCH ×2 (00:39→08:24)
[2021-11-24] MEDS: ACETAMINOPHEN 325 MG TAB PO SCH ×4 (00:45→18:23)
[2021-11-24] MEDS: SODIUM CHLORIDE 0.9% 10ML FLUSH IV SCH ×2 (00:45→21:57)
[2021-11-24] MEDS: DOXYCYCLINE HYCLATE 100 MG in DEXTROSE 5% 100 ML IV SCH ×2 (02:57→14:05)
[2021-11-24 08:25] LABS: Hematocrit (blood only) 37.6 % (37-47); Hemoglobin 11.5 g/dL (12.0-16.0); Mean Corpuscular Hemoglobin 29.1 pg (25-34); Mean Corpuscular Hgb Conc 30.6 g/dL (32-36); Mean Corpuscular Volume 95.2 fL (80-100); Mean Platelet Volume 9.4 fL (7.4-10.4); Platelet Count 371 K/uL (130-400); RDW Standard Deviation 63.1 fL (36.4-46.3); Red Blood Count 3.95 M/uL (4.2-5.4); White Blood Count 10.43 K/uL (4.8-10.8)
--- NOTE | 2021-11-24 08:28 | Electrocardiogram Report ---
Test Reason : Blood Pressure : / mmHG Vent. Rate : 092 BPM Atrial Rate : 092 BPM P-R Int : 138 ms QRS Dur : 078 ms QT Int : 364 ms P-R-T Axes : 040 -20 060 degrees QTc Int : 450 ms Normal sinus rhythm Normal ECG When compared with ECG of 21-NOV-2021 21:03, QT has shortened Confirmed by Roger Patterson ([id number]) on 11/24/2021 8:27:48 AM Referred By: REFERRED SELF Confirmed By:Roger Patterson
[2021-11-24] MEDS: traMADol HCL 50 MG TABLET PO PRN ×3 (08:31→20:39)
[2021-11-24] MEDS: LORazepam 0.5 MG TAB PO PRN ×3 (08:31→20:39)
[2021-11-24] MEDS: UMECLIDINIUM/VILANTEROL 62.5/25MCG 7 PUFFS/INHALER INH SCH (08:31)
[2021-11-24] MEDS: ISOSORBIDE MONO EXTENDED REL 30 MG TABCR PO SCH (08:32)
[2021-11-24] MEDS: busPIRone 5 MG TAB PO SCH ×3 (08:32→20:26)
[2021-11-24] MEDS: dexAMETHasone 6 MG in SYRINGE 0 ML IV SCH (08:32)
[2021-11-24] MEDS: ERGOCALCIFEROL 50,000 UNITS 1250 MCG CAP PO SCH (08:32)
[2021-11-24] MEDS: FLUoxetine HCL 20 MG CAP PO SCH (08:33)
[2021-11-24] MEDS: NYSTATIN POWDER 15GM BTL EXT SCH ×2 (08:33→20:27)
[2021-11-24] MEDS: LIDOCAINE 5% 1 PATCH TD SCH (08:33)
[2021-11-24 08:35] LABS: INR 2.8 (0.9-1.1); Prothrombin Time 26.6 Seconds (9.0-12.0)
[2021-11-24 08:47] LABS: Aspartate Aminotransferase 13 U/L (15-37); BUN Creatinine Ratio 29.5 (10-20); Blood Urea Nitrogen 22 mg/dl (7-18); C Reactive Protein < 0.29 mg/dl (0-0.29); Calcium 8.9 mg/dl (8.5-10.1); Carbon Dioxide 31 mmol/L (21-32); Chloride 108 mmol/L (98-107); Creatinine Clr Calc Pharmacy 94.6 ml/min; Est GFR (African American) 101.3 ml/min; Est GFR (Non-African American) 87.4 ml/min; Glucose 91 mg/dl (70-99); Magnesium 2.2 mg/dl (1.8-2.4); Potassium 3.9 mmol/L (3.5-5.1); Sodium 144 mmol/L (136-145)
--- NOTE | 2021-11-24 08:47 | Electrocardiogram Report ---
Test Reason : Blood Pressure : / mmHG Vent. Rate : 081 BPM Atrial Rate : 081 BPM P-R Int : 138 ms QRS Dur : 078 ms QT Int : 362 ms P-R-T Axes : 030 -14 056 degrees QTc Int : 420 ms Normal sinus rhythm Normal ECG When compared with ECG of 23-NOV-2021 17:05, No significant change was found Confirmed by Roger Patterson ([id number]) on 11/24/2021 8:47:00 AM Referred By: REFERRED SELF Confirmed By:Roger Patterson
[2021-11-24 08:48] LABS: Alanine Aminotransferase 21 (12-78)
--- NOTE | 2021-11-24 10:49 | Hospitalist Progress Note ---
Date of Service November 24, 2021 Assessment & Plan (1) Acute on chronic respiratory failure with hypoxia: (2) COVID-19: (3) Degenerative joint disease of left hip: (4) Anxiety and depression: (5) Chronic pain: (6) History of CVA (cerebrovascular accident): Plan: Acute on chronic resp failure with hypoxia COVID 19 infection COPD Exacerbation Continue oxygen supplementation. Oxygen has been weaned down to 3 L/min which is patient's baseline. Patient has COPD Continue dexamethasone and remdesivir. On doxycycline CT head showed old infarct and no acute abnormalities Continue nebs Send UA/UCx PT/OT eval For history of CVA, embolic. Continue warfarin. INR is therapeutic For patient anxiety and depression, continue home medication including buspirone, fluoxetine and as needed lorazepam Admission and Anticipated Discharge Date Admission Date: November 22, 2021 Subjective Patient seen and examined Reports persistent cough, shortness of breath and chest tightness. Reports generalized weakness. Reports occasional headache but not as bad as yesterday Denies any fevers, chills, nausea, vomiting Denies abdominal pain, diarrhea Had denied dysuria, frequency and urgency but later reported dysuria to RN Currently on 3 L/min which is patient's baseline oxygen Physical Exam Constitutional: + well hydrated; no acute distress Eyes: PERRL, conjunctivae normal, anicteric sclerae ENMT: external ear and nose normal, oropharynx normal Respiratory: On nasal cannula Generalized expiratory wheeze Cardiovascular: Rate/Rhythm: regular rate and regular rhythm S1 S2 Gastrointestinal (Abdomen): normal bowel sounds, soft, nontender, no hepatosplenomegaly Neurologic: PERRL, EOMI, accommodation nl, no face palsy, no dysarthria Results & Data Results & Data ([facility]) Vital Signs (Past 12 Hours) Vital Signs Temp Pulse Resp BP Pulse Ox 11/24/21 07:07 36.6 C 66 18 120/82 96 11/24/21 04:31 58 L 100 11/23/21 23:53 36.5 C 80 17 104/59 L 96 Laboratory Results Abnormal lab results 11/24/21 11/24/21 11/24/21 Range/Units 07:28 07:28 07:28 RBC 3.95 L (4.2-5.4) M/uL Hgb 11.5 L (12.0-16.0) g/dL MCHC 30.6 L (32-36) g/dL RDW Std Deviation 63.1 H (36.4-46.3) fL RDW Coeff of Ursula 18.0 H (11.5-14.5) % PT 26.6 H (9.0-12.0) Seconds INR 2.8 H (0.9-1.1) Chloride 108 H (98-107) mmol/L BUN 22 H (7-18) mg/dl BUN/Creatinine Ratio 29.5 H (10-20) AST 13 L (15-37) U/L Urine Ketones (Negative) 11/24/21 Range/Units 15:10 RBC (4.2-5.4) M/uL Hgb (12.0-16.0) g/dL MCHC (32-36) g/dL RDW Std Deviation (36.4-46.3) fL RDW Coeff of Ursula (11.5-14.5) % PT (9.0-12.0) Seconds INR (0.9-1.1) Chloride (98-107) mmol/L BUN (7-18) mg/dl BUN/Creatinine Ratio (10-20) AST (15-37) U/L Urine Ketones Trace H (Negative)
[2021-11-24 15:27] LABS: Appearance Urine Clear (Clear); Bilirubin Urine Negative (Negative); Blood Urine Negative (Negative); Color Urine Yellow; Glucose Urine UA Negative (Negative); Ketones Urine Trace (Negative); Leukocyte Esterase Urine Negative (Negative); Nitrite Urine Negative (Negative); Protein Urine Negative (Negative); Specific Gravity Urine 1.025 (1.000-1.030); Urobilinogen Urine Negative (Negative)
[2021-11-24] MEDS: WARFARIN SOD 5 MG TAB PO SCH (16:02)
[2021-11-24] MEDS: LEVALBUTEROL HCL 1.25 MG/3 ML NEB NEB PRN (19:06)
[2021-11-24] MEDS: REMDESIVIR 100 MG in SODIUM CHLORIDE 0.9% 230 ML IV SCH (20:25)
[2021-11-24] MEDS: CHOLECALCIFEROL 1,000 UNITS 25 MCG TAB PO SCH (20:26)
[2021-11-24] MEDS: MIRTAZAPINE TAB 15 MG TAB PO SCH (20:26)
[2021-11-24] MEDS: traZODone HCL 50 MG TAB PO SCH (20:40)
[2021-11-25] MEDS: ACETAMINOPHEN 325 MG TAB PO SCH ×4 (00:28→17:43)
[2021-11-25] MEDS: DOXYCYCLINE HYCLATE 100 MG in DEXTROSE 5% 100 ML IV SCH ×2 (03:00→14:19)
[2021-11-25 07:53] LABS: Hematocrit (blood only) 37.6 % (37-47); Hemoglobin 11.6 g/dL (12.0-16.0); Mean Corpuscular Hemoglobin 28.9 pg (25-34); Mean Corpuscular Hgb Conc 30.9 g/dL (32-36); Mean Corpuscular Volume 93.8 fL (80-100); Mean Platelet Volume 9.1 fL (7.4-10.4); Platelet Count 397 K/uL (130-400); RDW Coefficient of Variation 17.3 % (11.5-14.5); Red Blood Count 4.01 M/uL (4.2-5.4); White Blood Count 9.58 K/uL (4.8-10.8)
[2021-11-25 08:12] LABS: INR 3.7 (0.9-1.1); Prothrombin Time 33.5 Seconds (9.0-12.0)
[2021-11-25] MEDS ORDERED: cefTRIAXone SODIUM 1,000 MG in DEXTROSE 5% 50 ML IV SCH (08:15)
[2021-11-25 08:43] LABS: BUN Creatinine Ratio 33.4 (10-20); Calcium 8.7 mg/dl (8.5-10.1); Creatinine Clr Calc Pharmacy 107.2 ml/min; Est GFR (African American) 110.5 ml/min; Est GFR (Non-African American) 95.3 ml/min
[2021-11-25] MEDS: LORazepam 0.5 MG TAB PO PRN ×3 (08:43→20:47)
[2021-11-25] MEDS: traMADol HCL 50 MG TABLET PO PRN ×3 (08:43→20:47)
[2021-11-25] MEDS: ISOSORBIDE MONO EXTENDED REL 30 MG TABCR PO SCH (08:43)
[2021-11-25] MEDS: dexAMETHasone 6 MG in SYRINGE 0 ML IV SCH (08:43)
[2021-11-25] MEDS: FLUoxetine HCL 20 MG CAP PO SCH (08:44)
[2021-11-25] MEDS: busPIRone 5 MG TAB PO SCH ×3 (08:44→20:33)
[2021-11-25] MEDS: LIDOCAINE 5% 1 PATCH TD SCH (08:44)
[2021-11-25] MEDS: UMECLIDINIUM/VILANTEROL 62.5/25MCG 7 PUFFS/INHALER INH SCH (08:44)
[2021-11-25] MEDS: NYSTATIN POWDER 15GM BTL EXT SCH ×2 (08:45→20:33)
[2021-11-25] MEDS: cefTRIAXone SODIUM 2,000 MG in DEXTROSE 5% 50 ML IV SCH (09:41)
[2021-11-25] MEDS ORDERED: guaiFENesin 600 MG TABCR PO ONE (11:21)
--- NOTE | 2021-11-25 11:47 | Hospitalist Progress Note ---
Date of Service November 25, 2021 Assessment & Plan (1) Acute on chronic respiratory failure with hypoxia: (2) COVID-19: (3) Degenerative joint disease of left hip: (4) Anxiety and depression: (5) Chronic pain: (6) History of CVA (cerebrovascular accident): Plan: Acute on chronic resp failure with hypoxia COVID 19 infection COPD Exacerbation Urinary tract infection Continue oxygen supplementation. Was requiring 5l/min on admission. Oxygen has been weaned down to 3 L/min which is patient's baseline. Patient has COPD Continue dexamethasone and remdesivir. On doxycycline Continue nebs and supportive care Urine culture - GNR. Follow up speciation/sensitivity On ceftriaxone INR is supratherapeutic today Hold warfarin and monitor PT/OT eval For history of CVA, embolic. on warfarin. Held for now due to supratherapeutic INR today For patient anxiety and depression, continue home medication including buspirone, fluoxetine and as needed lorazepam Admission and Anticipated Discharge Date Admission Date: November 22, 2021 Subjective Patient seen and examined Reports persistent cough, shortness of breath and chest tightness. Reports generalized weakness. Reports headache is better Reports anxiety Denies any fevers, chills, nausea, vomiting Denies abdominal pain, diarrhea Reports dysuria. No freq, urgency or hematuria Physical Exam Constitutional: + well hydrated; no acute distress Eyes: PERRL, conjunctivae normal, anicteric sclerae ENMT: external ear and nose normal, oropharynx normal Respiratory: On nasal oxygen, diminished breath sounds Cardiovascular: Rate/Rhythm: regular rate and regular rhythm S1 S2 Gastrointestinal (Abdomen): normal bowel sounds, soft, nontender, no hepatosplenomegaly Musculoskeletal: No pedal edema Neurologic: PERRL, EOMI, accommodation nl, no face palsy, no dysarthria Results & Data Results & Data ([facility]) Vital Signs (Past 12 Hours) Vital Signs Temp Pulse Pulse Resp BP Pulse Ox 11/25/21 11:42 37.1 C 90 20 115/79 95 11/25/21 10:50 59 L 11/25/21 07:49 36.6 C 69 18 128/99 96 11/25/21 05:12 36.7 C 72 20 134/78 96 Laboratory Results Abnormal lab results 11/24/21 11/25/21 11/25/21 Range/Units 15:10 07:08 07:08 RBC (4.2-5.4) M/uL Hgb (12.0-16.0) g/dL MCHC (32-36) g/dL RDW Std Deviation (36.4-46.3) fL RDW Coeff of Ursula (11.5-14.5) % PT 33.5 H (9.0-12.0) Seconds INR 3.7 H (0.9-1.1) Chloride 108 H (98-107) mmol/L BUN 22 H (7-18) mg/dl BUN/Creatinine Ratio 33.4 H (10-20) Urine Ketones Trace H (Negative) 11/25/21 Range/Units 07:08 RBC 4.01 L (4.2-5.4) M/uL Hgb 11.6 L (12.0-16.0) g/dL MCHC 30.9 L (32-36) g/dL RDW Std Deviation 60.0 H (36.4-46.3) fL RDW Coeff of Ursula 17.3 H (11.5-14.5) % PT (9.0-12.0) Seconds INR (0.9-1.1) Chloride (98-107) mmol/L BUN (7-18) mg/dl BUN/Creatinine Ratio (10-20) Urine Ketones (Negative)
[2021-11-25] MEDS: guaiFENesin 600 MG TABCR PO SCH (20:32)
[2021-11-25] MEDS: CHOLECALCIFEROL 1,000 UNITS 25 MCG TAB PO SCH (20:32)
[2021-11-25] MEDS: MIRTAZAPINE TAB 15 MG TAB PO SCH (20:33)
[2021-11-25] MEDS: REMDESIVIR 100 MG in SODIUM CHLORIDE 0.9% 230 ML IV SCH (20:47)
[2021-11-25] MEDS: traZODone HCL 50 MG TAB PO SCH (20:47)
[2021-11-25] MEDS: SODIUM CHLORIDE 0.9% 10ML FLUSH IV SCH (22:08)
[2021-11-25] MEDS: LEVALBUTEROL HCL 1.25 MG/3 ML NEB NEB PRN (22:18)
[2021-11-26] MEDS: DOXYCYCLINE HYCLATE 100 MG in DEXTROSE 5% 100 ML IV SCH ×2 (01:13→13:14)
[2021-11-26] MEDS: ACETAMINOPHEN 325 MG TAB PO SCH ×4 (01:14→17:43)
[2021-11-26] MEDS: traMADol HCL 50 MG TABLET PO PRN ×3 (08:04→20:34)
[2021-11-26] MEDS: guaiFENesin 600 MG TABCR PO SCH ×2 (08:05→20:35)
[2021-11-26] MEDS: busPIRone 5 MG TAB PO SCH ×3 (08:05→20:36)
[2021-11-26] MEDS: ISOSORBIDE MONO EXTENDED REL 30 MG TABCR PO SCH (08:06)
[2021-11-26] MEDS: FLUoxetine HCL 20 MG CAP PO SCH (08:06)
[2021-11-26] MEDS: dexAMETHasone 6 MG in SYRINGE 0 ML IV SCH (08:06)
[2021-11-26] MEDS: LIDOCAINE 5% 1 PATCH TD SCH (08:07)
[2021-11-26] MEDS: UMECLIDINIUM/VILANTEROL 62.5/25MCG 7 PUFFS/INHALER INH SCH (08:07)
[2021-11-26] MEDS: NYSTATIN POWDER 15GM BTL EXT SCH ×2 (08:08→21:00)
[2021-11-26 08:32] LABS: Hematocrit (blood only) 37.5 % (37-47); Hemoglobin 11.8 g/dL (12.0-16.0); Mean Corpuscular Hemoglobin 28.9 pg (25-34); Mean Corpuscular Hgb Conc 31.5 g/dL (32-36); Mean Corpuscular Volume 91.9 fL (80-100); Mean Platelet Volume 8.9 fL (7.4-10.4); Platelet Count 410 K/uL (130-400); RDW Coefficient of Variation 17.1 % (11.5-14.5); RDW Standard Deviation 58.3 fL (36.4-46.3); Red Blood Count 4.08 M/uL (4.2-5.4)
[2021-11-26] MEDS: LORazepam 0.5 MG TAB PO PRN ×3 (08:38→20:34)
[2021-11-26 08:41] LABS: INR 3.4 (0.9-1.1); Prothrombin Time 31.2 Seconds (9.0-12.0)
[2021-11-26 09:09] LABS: Calcium 8.1 mg/dl (8.5-10.1); Potassium 3.9 mmol/L (3.5-5.1)
[2021-11-26 09:42] LABS: BUN Creatinine Ratio 34.3 (10-20); Creatinine Clr Calc Pharmacy 100.3 ml/min; Est GFR (African American) 108.4 ml/min; Est GFR (Non-African American) 93.5 ml/min
[2021-11-26] MEDS: cefTRIAXone SODIUM 2,000 MG in DEXTROSE 5% 50 ML IV SCH (09:58)
--- NOTE | 2021-11-26 15:15 | Hospitalist Progress Note ---
Date of Service November 26, 2021 Assessment & Plan (1) Acute on chronic respiratory failure with hypoxia: (2) COVID-19: Plan: 61-year-old female w/ PMH of COPD, chronic respiratory failure on 3 liters oxygen, hypothyroidism, sleep apnea, paroxysmal atrial fibrillation, idiopathic cardiomyopathy, patent foramen ovale, grade I diastolic dysfunction, morbid obesity, irritable bowel syndrome, history of narcotic addiction, chronic bilateral low back pain, von Willebrand disease, depression, generalized anxiety disorder, multiple strokes, PTSD, noncompliance with medication, who lives alone, ambulates with a walker presented 11/22/21 w/ cough w/ greenish sputum x 1 wk [employer]NA[employer] a/w SOB, generalized body weakness, chills. She is being managed for the following: #. Acute on chronic resp failure with hypoxia #. COVID 19 infection #. Possible COPD Exacerbation --given greenish sputum Patient presented with 1 week of shortness of breath, cough with greenish sputum [employer] Patient not vaccinated against COVID, came back positive in the ED 11/21. Present is chronic respiratory failure/COPD on 3 L oxygen at baseline. Was requiring 5l/min on admission. Patient currently requiring 3 L oxygen at bedside exam. Per chart review, her oxygen requirements is fluctuating. Continue dexamethasone 11/21 and remdesivir 11/21 On doxycycline 11/22 Continue nebs and supportive care/IS/Flutter valve #. Supratherapeutic INR INR of 3.7 on 11/25, still supratherapeutic today Continue to hold warfarin PT/INR daily #. Chronic medical conditions: History of CVA, embolic; anxiety/depression For history of CVA, embolic. on warfarin. Held for now due to supratherapeutic INR today For patient anxiety and depression, continue home medication including buspirone, fluoxetine and as needed lorazepam Resume other home meds as appropriate. #. Urinary tract infection Patient complains of pain/burning while passing urine. She is chronically incontinent of urine. 11/24 urine culture positive for Proteus mirabilis Continue with ceftriaxone 11/25, trial of Pyridium Supratherapeutic INR, warfarin on hold Full code Admission and Anticipated Discharge Date Admission Date: November 22, 2021 Subjective Patient was sitting up in bed, on 3 L nasal cannula oxygen, NAD, reports sleeping on and off overnight. Patient reports pain during passing urine and wanted pain medications for the same. Explained that she has UTI and is being treated appropriately for that. We will try Pyridium. Patient denies fever/chills/headache. Patient reports that she is trying to eat, her lungs at bedside was completely done and by the look of it she is eating okay. She reports not moving bowels for couple of days, will add bowel regimen. She also reports having hot mouth and she has multiple complaints which does not seems to be related. Physical Exam Physical Exam: GENERAL: Alert and oriented x3. NAD, on 3L NC O2. HEENT: No pallor, no icterus. Pupils equal, round and reactive to light. Oral mucosa moist. NECK: No JVD, no neck masses. HEART: S1 and S2 heard. Regular rate and rhythm. No murmur, no gallop. RESPIRATORY SYSTEM: Normal AP diameter. No accessory muscle use. No wheezing, no crackles. ABDOMEN: Soft, bowel sounds present, nontender, no distention. CENTRAL NERVOUS SYSTEM: No facial droop. Speech is clear. Obeys simple commands. Moves extremities. EXTREMITIES: No edema, no erythema seen. Results & Data Results & Data ([facility]) Vital Signs (Past 12 Hours) Vital Signs Temp Pulse Pulse Pulse Resp BP Pulse Ox 11/26/21 11:32 36.5 C 88 20 116/73 94 11/26/21 08:46 60 11/26/21 07:29 36.7 C 65 17 131/74 95 11/26/21 05:00 99
[2021-11-26] MEDS: PHENAZOPYRIDINE HCL 200 MG TAB PO PRN (16:20)
[2021-11-26] MEDS: traZODone HCL 50 MG TAB PO SCH (20:34)
[2021-11-26] MEDS: MIRTAZAPINE TAB 15 MG TAB PO SCH (20:35)
[2021-11-26] MEDS: CHOLECALCIFEROL 1,000 UNITS 25 MCG TAB PO SCH (20:36)
[2021-11-26] MEDS: LEVALBUTEROL HCL 1.25 MG/3 ML NEB NEB PRN (20:39)
[2021-11-27] MEDS: DOXYCYCLINE HYCLATE 100 MG in DEXTROSE 5% 100 ML IV SCH ×2 (02:25→13:30)
[2021-11-27] MEDS: ACETAMINOPHEN 325 MG TAB PO SCH ×4 (05:52→17:53)
[2021-11-27] MEDS: traMADol HCL 50 MG TABLET PO PRN ×3 (06:42→20:41)
[2021-11-27] MEDS: LORazepam 0.5 MG TAB PO PRN ×2 (06:42→20:41)
[2021-11-27 08:58] LABS: INR 2.4 (0.9-1.1); Prothrombin Time 22.4 Seconds (9.0-12.0)
[2021-11-27] MEDS: dexAMETHasone 6 MG in SYRINGE 0 ML IV SCH (09:19)
[2021-11-27] MEDS: PHENAZOPYRIDINE HCL 200 MG TAB PO PRN (09:20)
[2021-11-27] MEDS: busPIRone 5 MG TAB PO SCH ×3 (09:20→20:41)
[2021-11-27] MEDS: FLUoxetine HCL 20 MG CAP PO SCH (09:20)
[2021-11-27] MEDS: ISOSORBIDE MONO EXTENDED REL 30 MG TABCR PO SCH (09:21)
[2021-11-27] MEDS: LIDOCAINE 5% 1 PATCH TD SCH (09:21)
[2021-11-27] MEDS: guaiFENesin 600 MG TABCR PO SCH ×2 (09:21→20:40)
[2021-11-27] MEDS: UMECLIDINIUM/VILANTEROL 62.5/25MCG 7 PUFFS/INHALER INH SCH (09:22)
[2021-11-27] MEDS: NYSTATIN POWDER 15GM BTL EXT SCH ×2 (09:23→20:41)
[2021-11-27] MEDS: cefTRIAXone SODIUM 2,000 MG in DEXTROSE 5% 50 ML IV SCH (12:15)
--- NOTE | 2021-11-27 14:41 | Electrocardiogram Report ---
Test Reason : Blood Pressure : / mmHG Vent. Rate : 093 BPM Atrial Rate : 093 BPM P-R Int : 136 ms QRS Dur : 084 ms QT Int : 360 ms P-R-T Axes : 038 003 064 degrees QTc Int : 447 ms Normal sinus rhythm Nonspecific T wave abnormality Septal leads Borderline ECG When compared with ECG of 23-NOV-2021 19:52, Nonspecific T wave abnormality Septal leads now present Confirmed by Roger Patterson ([id number]) on 11/27/2021 2:41:26 PM Referred By: REFERRED SELF Confirmed By:Roger Patterson
--- NOTE | 2021-11-27 16:47 | Hospitalist Progress Note ---
Date of Service November 27, 2021 Assessment & Plan (1) Acute on chronic respiratory failure with hypoxia: (2) COVID-19: Plan: 61-year-old female w/ PMH of COPD, chronic respiratory failure on 3 liters oxygen, hypothyroidism, sleep apnea, paroxysmal atrial fibrillation, idiopathic cardiomyopathy, patent foramen ovale, grade I diastolic dysfunction, morbid obesity, irritable bowel syndrome, history of narcotic addiction, chronic bilateral low back pain, von Willebrand disease, depression, generalized anxiety disorder, multiple strokes, PTSD, noncompliance with medication, who lives alone, ambulates with a walker presented 11/22/21 w/ cough w/ greenish sputum x 1 wk [employer] a/w SOB, generalized body weakness, chills. She is being managed for the following: #. Acute on chronic resp failure with hypoxia #. COVID 19 infection #. Possible COPD Exacerbation --given greenish sputum Patient presented with 1 week of shortness of breath, cough with greenish sputum [employer] Patient not vaccinated against COVID, came back positive in the ED 11/21. Present is chronic respiratory failure/COPD on 3 L oxygen at baseline. Was requiring 5l/min on admission. Patient currently requiring 3 L oxygen at bedside exam. Per chart review, her oxygen requirements more stable now. Continue dexamethasone 11/21 and s/p remdesivir 11/21- 11/25 On doxycycline 11/22 Continue nebs and supportive care/IS/Flutter valve #. Supratherapeutic INR INR of 3.7 on 11/25, still supratherapeutic today INR therapeutic today, resume home dose of warfarin. PT/INR daily #. Chronic medical conditions: History of CVA, embolic; anxiety/depression For history of CVA, embolic. on warfarin. Held for now due to supratherapeutic INR today For patient anxiety and depression, continue home medication including buspirone, fluoxetine and as needed lorazepam Resume other home meds as appropriate. #. Urinary tract infection Patient complains of pain/burning while passing urine. She is chronically incontinent of urine. 11/24 urine culture positive for Proteus mirabilis Continue with ceftriaxone 11/25, complete Pyridium DVT prophylaxis: Patient on warfarin Full code Disposition: PT/OT, CM to assist with DC planning, patient stable for discharge. Admission and Anticipated Discharge Date Admission Date: November 22, 2021 Subjective Patient was sitting up in bed, on 3 L nasal cannula oxygen, NAD, reports no particular problems overnight. Patient does not mention about belly pain today but reports having chest pain which is reproducible with palpation, troponin and EKG were WNL. Patient wanted to know what we will be doing for her pain. Patient complaining of facial numbness but no facial drooping appreciated on exam. Patient complains multiple things as usual, ROS seems unreliable. Discussed with RN, she is doing okay with no acute events overnight as he is eating okay. She did not cooperate with physical and Occupational Therapy. There is no desaturation with movement noted. Physical Exam Physical Exam: GENERAL: Alert and oriented x3. NAD, on 3L NC O2. HEENT: No pallor, no icterus. Pupils equal, round and reactive to light. Oral mucosa moist. NECK: No JVD, no neck masses. HEART: S1 and S2 heard. Regular rate and rhythm. No murmur, no gallop. RESPIRATORY SYSTEM: Normal AP diameter. No accessory muscle use. No wheezing, no crackles. ABDOMEN: Soft, bowel sounds present, nontender, no distention. CENTRAL NERVOUS SYSTEM: No facial droop. Speech is clear. Obeys simple commands. Moves extremities. EXTREMITIES: No edema, no erythema seen. [place]wick cath w/ yellow urine collection noted. Results & Data Results & Data ([facility]) Vital Signs (Past 12 Hours) Vital Signs Temp Pulse Pulse Resp BP Pulse Ox 11/27/21 15:35 36.7 C 90 104/60 93 11/27/21 13:09 36.7 C 94 H 20 117/75 93 11/27/21 08:32 36.5 C 84 20 123/86 94 11/27/21 08:00 62 11/27/21 05:22 36.9 C 69 20 134/80 97
[2021-11-27] MEDS: MIRTAZAPINE TAB 15 MG TAB PO SCH (20:40)
[2021-11-27] MEDS: CHOLECALCIFEROL 1,000 UNITS 25 MCG TAB PO SCH (20:41)
[2021-11-27] MEDS: traZODone HCL 50 MG TAB PO SCH (20:41)
[2021-11-28] MEDS: ACETAMINOPHEN 325 MG TAB PO SCH ×5 (00:54→23:05)
[2021-11-28] MEDS: DOXYCYCLINE HYCLATE 100 MG in DEXTROSE 5% 100 ML IV SCH ×2 (03:01→15:33)
[2021-11-28 07:32] LABS: INR 1.6 (0.9-1.1); Prothrombin Time 15.6 Seconds (9.0-12.0)
[2021-11-28] MEDS: FLUoxetine HCL 20 MG CAP PO SCH (07:54)
[2021-11-28] MEDS: ISOSORBIDE MONO EXTENDED REL 30 MG TABCR PO SCH (07:55)
[2021-11-28] MEDS: dexAMETHasone 6 MG in SYRINGE 0 ML IV SCH (07:55)
[2021-11-28] MEDS: busPIRone 5 MG TAB PO SCH ×3 (07:56→20:29)
[2021-11-28] MEDS: guaiFENesin 600 MG TABCR PO SCH ×2 (07:56→20:28)
[2021-11-28] MEDS: NYSTATIN POWDER 15GM BTL EXT SCH ×2 (07:57→20:30)
[2021-11-28] MEDS: UMECLIDINIUM/VILANTEROL 62.5/25MCG 7 PUFFS/INHALER INH SCH (07:57)
[2021-11-28] MEDS: LIDOCAINE 5% 1 PATCH TD SCH (07:58)
[2021-11-28] MEDS: traMADol HCL 50 MG TABLET PO PRN ×3 (08:20→23:11)
[2021-11-28] MEDS: LORazepam 0.5 MG TAB PO PRN ×2 (08:20→21:13)
[2021-11-28] MEDS: PHENAZOPYRIDINE HCL 200 MG TAB PO PRN (11:19)
[2021-11-28] MEDS: cefTRIAXone SODIUM 2,000 MG in DEXTROSE 5% 50 ML IV SCH (11:20)
--- NOTE | 2021-11-28 13:22 | Psychiatric Consultation ---
Date of Consultation November 28, 2021 Impression / Recommendations Impression This is a 61 yo with a history of complicated bereavement, depression, anxiety, opioid use disorder in sustained remission admitted medically for COVID. Diagnostically consistent with unspecified depression and anxiety-complicated bereavement vs persistent depressive disorder vs adjustment disorder vs secondary to COVID. Acute risk of self-harm is low given denial of SI. They are not interested in nor do they meet criteria for inpatient psychiatric hospitalization at this time. Discussed potential medication and non-pharmacologic coping skills in detail as well as options for additional hospital based resources (speaking with psych liason for check-ins/coping, distraction tools, mindfulness). She demonstrates some help-seeking, help-rejecting behaviors and was not interested in any suggestions or resources with the exception of medications she could take for anxiety. Discussed concern for any additional benzodiazepines (addictive potential especially with her history of opioid use, respiratory depression especially with COVID) which she is frustrated with. At this time agree with continuing prn since review of PDMP notes she has been getting ativan as an outpatient and tapering now would be non-ideal given increased stress and isolation for COVID treatment. However long-term goal would be to taper ativan to discontinuation as an outpatient. Discussed option to increase prozac which she isn't very interested in because it would be non-immediate effect. Reviewed option to increase buspar which she'd like to do. Discussed importance of discontinuing mirtazapine to reduce risk of serotonin syndrome given multiple psychiatric medications and increasing buspar and currently already on trazodone. Sodium is normal and no evidence of prolonged QTc. -Consider increasing buspar to 15 mg qAM and 10mg qafternoon and 10mg qevening (can increase by 5mg q2days with goal of 45-60mg per day max dose) -Consider discontinuing mirtazpine -psychiatric liason can make referral for additional outpatient services such as therapy if she becomes interested and can provide additional resources to help with coping in the hospital if she becomes interested (1) Complicated bereavement: (2) Depression, unspecified: (3) Anxiety disorder, unspecified: see impression above Risk Factors Assessment Do You Have Access To A Gun?: No Previous Attempt: No Hopelessness: No Protective Factors Assessment Stable Relationships: Yes Good Rapport with Provider: Yes Telehealth Telehealth Options: Telephone only For the duration of the visit, provider was performing the assessment from: The same facility as the patient After establishing a telemedicine visit, patient was: Patient was verified with two unique identifiers, Patient/authorized rep acknowledged consent and understanding and Gave permission to continue telehealth session Total Time Spent (minutes): 25 Psych History Identifying Data 61 yo woman with history of complicated bereavement, depression, anxiety, opioid use disorder in sustained remission admitted medically for COVID. Psychiatry was consulted for worsening anxiety and patient requesting to speak with psychiatry about her medications. Chief Complaint "I'm not so good". History of Present Illness Kimberly is admitted for COVID and difficulty breathing. She describes a long history of depression ("since I was 13") which has remained constant and she cites most significant contributing factor is her grief from the of her in 2019 and the of her daughter in 2004. She also endorses a long history of anxiety which she feels is currently being triggered by "the nasty aids" who have been helping to care for her in the hospital. She stated frustration that they have been encouraging her to get out of bed and sit in the chair or move during the day. She feels that she is unable to do this due to chronic pain issues. She is quite fixated on needing something else for anxiety stating "I need something between the ativan doses". Discussed her medications, which are prescribed a psychiatrist through [facility] in [place] "I can't remember his name". She was not interested in adjusting the fluoxetine dose since this would not be an immediate effect. She was more open to trying a dose increase of buspar. She was not interested in offers to set her up with outpatient therapy nor in speaking with the psych liason while she's admitted. She also declined offers for distractions such as word searches or suduko, etc. Denies current SI. Gets frustrated with psychiatric ROS and history stating "I had 9 strokes, I'm not good at answering questions" so interview was completed per her request. Past Psychiatric History Outpatient Services: see HPI Previous Psych Admissions: [facility] (06/2006), [facility] (09/2014 & 09/2015) Do You Have Access To A Gun?: No History of Previous Suicide Attempt: No Past Medication Trials: per chart review from psych consult note by Dr. Romano on 11/04/2020: 1. Prozac 2. Gabapentin 3. Effexor 4. Cymbalta 5. Zoloft 6. Lexapro 7. BuSpar 8. Lamictal 9. Seroquel 10.Topamax 11.Risperdal 12.Abilify 13.Thorazine 14.Klonopin 15.Ambien 16.Trazodone 17.Zoloft 18.Remeron 19.Vistaril 20.Ativan Allergies Allergy/AdvReac Type Severity Reaction Status Date / Time aspirin Allergy Unknown TAKES Verified 11/21/21 21:45 COUMADIN salicylates AdvReac Unknown ?DUE TO Verified 11/21/21 21:45 COUMADIN? Home Medications Medication Instructions Recorded Confirmed Type isosorbide mononitrate 30 mg 30 mg PO QAM #0 tab 09/22/20 11/21/21 Rx tablet,extended release 24 hr cholecalciferol (vitamin D3) 1,250 1,250 mcg PO WK 05/20/21 11/21/21 History mcg (50,000 unit) capsule lorazepam 0.5 mg tablet 0.5 mg PO TID PRN 05/20/21 11/21/21 History tramadol 100 mg tablet 100 mg PO Q8 PRN 05/20/21 11/21/21 History buspirone 10 mg tablet 10 mg PO TID #0 tab 05/25/21 11/21/21 Rx cholecalciferol (vitamin D3) 25 25 mcg PO HS 06/13/21 11/21/21 History mcg (1,000 unit) capsule warfarin 2.5 mg tablet 7.5 mg PO 5XWK 06/13/21 11/21/21 History warfarin 5 mg tablet 5 mg PO 2XWK 06/13/21 11/21/21 History fluoxetine 20 mg capsule 20 mg PO QAM 11/21/21 11/21/21 History mirtazapine 7.5 mg tablet 7.5 mg PO HS 11/21/21 11/21/21 History nystatin 100,000 unit/gram topical 1 applic TOPICAL BID 11/21/21 11/21/21 History powder (Nyamyc) trazodone 150 mg tablet 150 mg PO HS 11/21/21 11/21/21 History umeclidinium 62.5 mcg-vilanterol 1 inh INHALATION DAILY 11/21/21 11/21/21 History 25 mcg/actuation powdr for inhalation (Anoro Ellipta) Family History alcohol use disorder in parents, schizophrenia in paternal relatives Substance Abuse History vicodin use disorder (last in 2018) Personal History Employment Status: Disabled Marital Status: (2nd ; from 1st ) Number Of Children: 3, 2 living, one of her daugthers in 2004 Beliefs That Will Affect Care: None Patient History Medical History (Updated 11/28/21 @ 13:37 by Shaye Sylvester MD) Anxiety and depression Atrial fibrillation Atypical chest pain Cerebrovascular disease Chronic pain on daily narcotics Complicated bereavement History of stroke "embolic stroke, underlying PFO" Morbid obesity PAF (paroxysmal atrial fibrillation) Submucosal lesion of stomach Noted on EGD 11/06/20 Supratherapeutic INR Surgical History Status post cholecystectomy Status post hysterectomy Family History Other Heart disease Social History Smoking Status: Former smoker Tobacco Type: Cigarettes Second Hand Exposure: No; Hx Alcohol Use: No Hx Substance Use: No Preferred Language: Tajik Communication Ability: Effective Local Driver Required: No Beliefs That Will Affect Care: None marital status: / Current Living Situation: Alone Current Living Situation Comment: in march Other Information That Helps Us Care for You: No Feels Safe at Home: Yes Assistive Devices: Glasses and Oxygen - Continuous Physical Exam Psychiatric: Orientation: alert and oriented x 3 Speech: normal rate/rhythm/volume of speech Mood: + depressed mood, + anxious mood and + irritable mood Thought Process: linear/logical thought process Thought Content: + preoccupation (desires more frequent dosing of ativan ) and reality based without delusions Suicidal Thoughts: denies suicidal thoughts Homicidal Thoughts: denies homicidal thoughts Hallucinations: no auditory hallucinations and no visual hallucinations Insight: + limited insight Judgement: + limited judgement Vital Signs (Past 24 Hours): Last Vital Signs Temp 36.6 C 11/28/21 11:23 Pulse 95 H 11/28/21 11:23 Resp 19 11/28/21 11:23 BP 137/70 11/28/21 11:23 Pulse Ox 93 11/28/21 11:23 Review of Systems All systems reviewed & are unremarkable except as noted in HPI & below (endorses SOB, cough) Results & Data (PSY) Laboratory Results Na+ wnl Diagnostic Findings EKG QTC wnl on 11/27/21 Medications Administered Acetaminophen (Acetaminophen 325 Mg Tab) 650 mg PO Q6H MARY Stop: 12/22/21 11:59 Last Admin: 11/28/21 11:19 Dose: 650 mg Documented by: [id number] Admin: 11/28/21 06:02 Dose: 650 mg Documented by: [id number] Admin: 11/28/21 00:54 Dose: Not Given Documented by: [id number] Admin: 11/27/21 17:53 Dose: 650 mg Documented by: [id number] Admin: 11/27/21 12:52 Dose: 650 mg Documented by: [id number] Admin: 11/27/21 05:52 Dose: 650 mg Documented by: [id number] Admin: 11/27/21 00:00 Dose: Not Given Documented by: [id number] Admin: 11/26/21 17:43 Dose: 650 mg Documented by: [id number] Admin: 11/26/21 11:34 Dose: 650 mg Documented by: [id number] Admin: 11/26/21 05:41 Dose: 650 mg Documented by: [id number] Admin: 11/26/21 01:14 Dose: Not Given Documented by: [id number] Admin: 11/25/21 17:43 Dose: 650 mg Documented by: [id number] Admin: 11/25/21 11:46 Dose: 650 mg Documented by: [id number] Admin: 11/25/21 05:34 Dose: Not Given Documented by: [id number] Admin: 11/25/21 00:28 Dose: Not Given Documented by: [id number] Admin: 11/24/21 18:23 Dose: 650 mg Documented by: [id number] Admin: 11/24/21 12:28 Dose: 650 mg Documented by: [id number] Admin: 11/24/21 06:02 Dose: Not Given Documented by: [id number] Admin: 11/24/21 00:45 Dose: 650 mg Documented by: [id number] Admin: 11/23/21 18:22 Dose: 650 mg Documented by: [id number] Admin: 11/23/21 11:10 Dose: 650 mg Documented by: [id number] Admin: 11/23/21 06:05 Dose: Not Given Documented by: [id number] Admin: 11/23/21 01:13 Dose: Not Given Documented by: [id number] Admin: 11/22/21 18:10 Dose: 650 mg Documented by: [id number] Admin: 11/22/21 13:40 Dose: Not Given Documented by: [id number] Buspirone HCl (Buspirone 5 Mg Tab) 10 mg PO TID MARY Stop: 12/22/21 08:59 Last Admin: 11/28/21 07:56 Dose: 10 mg Documented by: [id number] Admin: 11/27/21 20:41 Dose: 10 mg Documented by: [id number] Admin: 11/27/21 13:26 Dose: 10 mg Documented by: [id number] Admin: 11/27/21 09:20 Dose: 10 mg Documented by: [id number] Admin: 11/26/21 20:36 Dose: 10 mg Documented by: [id number] Admin: 11/26/21 13:15 Dose: 10 mg Documented by: [id number] Admin: 11/26/21 08:05 Dose: 10 mg Documented by: [id number] Admin: 11/25/21 20:33 Dose: 10 mg Documented by: [id number] Admin: 11/25/21 14:18 Dose: 10 mg Documented by: [id number] Admin: 11/25/21 08:44 Dose: 10 mg Documented by: [id number] Admin: 11/24/21 20:26 Dose: 10 mg Documented by: [id number] Admin: 11/24/21 14:05 Dose: 10 mg Documented by: [id number] Admin: 11/24/21 08:32 Dose: 10 mg Documented by: [id number] Admin: 11/23/21 21:22 Dose: 10 mg Documented by: [id number] Admin: 11/23/21 14:13 Dose: 10 mg Documented by: [id number] Admin: 11/23/21 09:19 Dose: 10 mg Documented by: [id number] Admin: 11/22/21 20:48 Dose: 10 mg Documented by: [id number] Admin: 11/22/21 15:50 Dose: 10 mg Documented by: [id number] Admin: 11/22/21 09:01 Dose: 10 mg Documented by: [id number] Ergocalciferol (Ergocalciferol 50,000 Units 1250 Mcg Cap) 50,000 units PO Mo@0900 MARY Stop: 12/24/21 08:59 Last Admin: 11/24/21 08:32 Dose: 50,000 units Documented by: [id number] Fluoxetine HCl (Fluoxetine Hcl 20 Mg Cap) 20 mg PO QAM MARY Stop: 12/22/21 08:59 Last Admin: 11/28/21 07:54 Dose: 20 mg Documented by: [id number] Admin: 11/27/21 09:20 Dose: 20 mg Documented by: [id number] Admin: 11/26/21 08:06 Dose: 20 mg Documented by: [id number] Admin: 11/25/21 08:44 Dose: 20 mg Documented by: [id number] Admin: 11/24/21 08:33 Dose: 20 mg Documented by: [id number] Admin: 11/23/21 09:19 Dose: 20 mg Documented by: [id number] Admin: 11/22/21 09:02 Dose: 20 mg Documented by: [id number] Guaifenesin (Guaifenesin 600 Mg Tabcr) 1,200 mg PO Q12 MARY Stop: 12/25/21 20:59 Last Admin: 11/28/21 07:56 Dose: 1,200 mg Documented by: [id number] Admin: 11/27/21 20:40 Dose: 1,200 mg Documented by: [id number] Admin: 11/27/21 09:21 Dose: 1,200 mg Documented by: [id number] Admin: 11/26/21 20:35 Dose: 1,200 mg Documented by: [id number] Admin: 11/26/21 08:05 Dose: 1,200 mg Documented by: [id number] Admin: 11/25/21 20:32 Dose: 1,200 mg Documented by: [id number] Dexamethasone 6 mg/ Syringe 1.5 mls @ 1 mls/min IV DAILY MARY Stop: 12/02/21 08:59 Last Admin: 11/28/21 07:55 Dose: 1 mls/min Documented by: [id number] Admin: 11/27/21 09:19 Dose: 1 mls/min Documented by: [id number] Admin: 11/26/21 08:06 Dose: 1 mls/min Documented by: [id number] Admin: 11/25/21 08:43 Dose: 1 mls/min Documented by: [id number] Admin: 11/24/21 08:32 Dose: 1 mls/min Documented by: [id number] Admin: 11/23/21 09:19 Dose: 1 mls/min Documented by: [id number] Admin: 11/22/21 09:00 Dose: 1 mls/min Documented by: [id number] Doxycycline Hyclate 100 mg/ (Dextrose) 110 mls @ 50 mls/hr IV Q12H MARY Stop: 11/29/21 01:59 Last Infusion: 11/28/21 06:02 Dose: 0 mls/hr Documented by: [id number] Admin: 11/28/21 03:01 Dose: 50 mls/hr Documented by: [id number] Infusion: 11/27/21 15:56 Dose: 0 mls/hr Documented by: [id number] Admin: 11/27/21 13:30 Dose: 50 mls/hr Documented by: [id number] Infusion: 11/27/21 05:53 Dose: 0 mls/hr Documented by: [id number] Admin: 11/27/21 02:25 Dose: 50 mls/hr Documented by: [id number] Infusion: 11/26/21 15:27 Dose: 0 mls/hr Documented by: [id number] Admin: 11/26/21 13:14 Dose: 50 mls/hr Documented by: [id number] Infusion: 11/26/21 03:30 Dose: 0 mls/hr Documented by: [id number] Admin: 11/26/21 01:13 Dose: 50 mls/hr Documented by: [id number] Infusion: 11/25/21 16:20 Dose: 0 mls/hr Documented by: [id number] Admin: 11/25/21 14:19 Dose: 55 mls/hr Documented by: [id number] Infusion: 11/25/21 05:02 Dose: 0 mls/hr Documented by: [id number] Admin: 11/25/21 03:00 Dose: 55 mls/hr Documented by: [id number] Infusion: 11/24/21 16:43 Dose: 0 mls/hr Documented by: [id number] Admin: 11/24/21 14:05 Dose: 55 mls/hr Documented by: [id number] Infusion: 11/24/21 05:23 Dose: 0 mls/hr Documented by: [id number] Admin: 11/24/21 02:57 Dose: 50 mls/hr Documented by: [id number] Infusion: 11/23/21 16:45 Dose: 0 mls/hr Documented by: [id number] Admin: 11/23/21 14:13 Dose: 50 mls/hr Documented by: [id number] Infusion: 11/23/21 05:16 Dose: 0 mls/hr Documented by: [id number] Admin: 11/23/21 02:58 Dose: 50 mls/hr Documented by: [id number] Infusion: 11/22/21 18:18 Dose: 0 mls/hr Documented by: [id number] Admin: 11/22/21 15:50 Dose: 50 mls/hr Documented by: [id number] Infusion: 11/22/21 04:29 Dose: 0 mls/hr Documented by: [id number] Admin: 11/22/21 02:10 Dose: 50 mls/hr Documented by: [id number] Ceftriaxone Sodium 2,000 mg/ (Dextrose) 70 mls @ 140 mls/hr IV Q25H MARY Stop: 11/30/21 08:59 Last Infusion: 11/28/21 12:36 Dose: 0 mls/hr Documented by: [id number] Admin: 11/28/21 11:20 Dose: 140 mls/hr Documented by: [id number] Infusion: 11/27/21 12:50 Dose: 0 mls/hr Documented by: [id number] Admin: 11/27/21 12:15 Dose: 140 mls/hr Documented by: [id number] Infusion: 11/26/21 10:55 Dose: 0 mls/hr Documented by: [id number] Admin: 11/26/21 09:58 Dose: 140 mls/hr Documented by: [id number] Infusion: 11/25/21 10:25 Dose: 0 mls/hr Documented by: [id number] Admin: 11/25/21 09:41 Dose: 140 mls/hr Documented by: [id number] Isosorbide Mononitrate (Isosorbide [place] Extended Rel 30 Mg Tabcr) 30 mg PO QAM MARY Stop: 12/22/21 08:59 Last Admin: 11/28/21 07:55 Dose: 30 mg Documented by: [id number] Admin: 11/27/21 09:21 Dose: 30 mg Documented by: [id number] Admin: 11/26/21 08:06 Dose: 30 mg Documented by: [id number] Admin: 11/25/21 08:43 Dose: 30 mg Documented by: [id number] Admin: 11/24/21 08:32 Dose: 30 mg Documented by: [id number] Admin: 11/23/21 09:19 Dose: 30 mg Documented by: [id number] Admin: 11/22/21 09:02 Dose: 30 mg Documented by: [id number] Levalbuterol HCl (Levalbuterol Hcl 1.25 Mg/3 Ml Neb) 1.25 mg NEB Q2H PRN; Protocol PRN Reason: Shortness Of Breath Or Wheezing Stop: 12/22/21 01:19 Last Admin: 11/26/21 20:39 Dose: 1.25 mg Documented by: [id number] Admin: 11/25/21 22:18 Dose: 1.25 mg Documented by: [id number] Admin: 11/24/21 19:06 Dose: 1.25 mg Documented by: [id number] Lidocaine (Lidocaine 5% 1 Patch) 1 patch TD QAM [facility] Stop: 12/22/21 16:44 Last Admin: 11/28/21 07:58 Dose: Not Given Documented by: [id number] Admin: 11/27/21 09:21 Dose: Not Given Documented by: [id number] Admin: 11/26/21 08:07 Dose: Not Given Documented by: [id number] Admin: 11/25/21 08:44 Dose: Not Given Documented by: [id number] Admin: 11/24/21 08:33 Dose: Not Given Documented by: [id number] Admin: 11/23/21 09:23 Dose: Not Given Documented by: [id number] Admin: 11/22/21 17:37 Dose: 1 patch Documented by: [id number] Lorazepam (Lorazepam 0.5 Mg Tab) 0.5 mg PO TID PRN PRN Reason: Anxiety Stop: 12/22/21 01:19 Last Admin: 11/28/21 08:20 Dose: 0.5 mg Documented by: [id number] Admin: 11/27/21 20:41 Dose: 0.5 mg Documented by: [id number] Admin: 11/27/21 06:42 Dose: 0.5 mg Documented by: [id number] Admin: 11/26/21 20:34 Dose: 0.5 mg Documented by: [id number] Admin: 11/26/21 16:19 Dose: 0.5 mg Documented by: [id number] Admin: 11/26/21 08:38 Dose: 0.5 mg Documented by: [id number] Admin: 11/25/21 20:47 Dose: 0.5 mg Documented by: [id number] Admin: 11/25/21 14:19 Dose: 0.5 mg Documented by: [id number] Admin: 11/25/21 08:43 Dose: 0.5 mg Documented by: [id number] Admin: 11/24/21 20:39 Dose: 0.5 mg Documented by: [id number] Admin: 11/24/21 14:05 Dose: 0.5 mg Documented by: [id number] Admin: 11/24/21 08:31 Dose: 0.5 mg Documented by: [id number] Admin: 11/23/21 21:22 Dose: 0.5 mg Documented by: [id number] Admin: 11/23/21 15:02 Dose: 0.5 mg Documented by: [id number] Admin: 11/23/21 09:19 Dose: 0.5 mg Documented by: [id number] Admin: 11/22/21 22:31 Dose: 0.5 mg Documented by: [id number] Admin: 11/22/21 13:49 Dose: 0.5 mg Documented by: [id number] Mirtazapine (Mirtazapine Tab 15 Mg Tab) 7.5 mg PO [facility] Stop: 12/22/21 20:59 Last Admin: 11/27/21 20:40 Dose: 7.5 mg Documented by: [id number] Admin: 11/26/21 20:35 Dose: 7.5 mg Documented by: [id number] Admin: 11/25/21 20:33 Dose: 7.5 mg Documented by: [id number] Admin: 11/24/21 20:26 Dose: 7.5 mg Documented by: [id number] Admin: 11/23/21 21:22 Dose: 7.5 mg Documented by: [id number] Admin: 11/22/21 20:48 Dose: 7.5 mg Documented by: [id number] Miscellaneous (Remove Lidoderm Patch) 1 ea N/A DAILY@2100 [facility] Stop: 12/22/21 22:59 Last Admin: 11/27/21 22:14 Dose: Not Given Documented by: [id number] Admin: 11/26/21 22:47 Dose: Not Given Documented by: [id number] Admin: 11/25/21 20:34 Dose: Not Given Documented by: [id number] Admin: 11/24/21 20:28 Dose: Not Given Documented by: [id number] Admin: 11/23/21 22:00 Dose: Not Given Documented by: [id number] Admin: 11/22/21 23:03 Dose: 1 ea Documented by: [id number] Nitroglycerin (Nitroglycerin Sl 0.4 Mg/Tab Tab) 0.4 mg SL UD PRN PRN Reason: Chest Pain Stop: 12/22/21 01:19 Last Admin: 11/23/21 16:54 Dose: 0.4 mg Documented by: [id number] Admin: 11/23/21 16:44 Dose: 0.4 mg Documented by: [id number] Nystatin (Nystatin Powder 15gm Btl) 1 appln EXT BID MARY Stop: 12/22/21 08:59 Last Admin: 11/28/21 07:57 Dose: 1 appln Documented by: [id number] Admin: 11/27/21 20:41 Dose: 1 appln Documented by: [id number] Admin: 11/27/21 09:23 Dose: 1 appln Documented by: [id number] Admin: 11/26/21 21:00 Dose: 1 appln Documented by: [id number] Admin: 11/26/21 08:08 Dose: 1 appln Documented by: [id number] Admin: 11/25/21 20:33 Dose: 1 appln Documented by: [id number] Admin: 11/25/21 08:45 Dose: 1 appln Documented by: [id number] Admin: 11/24/21 20:27 Dose: 1 appln Documented by: [id number] Admin: 11/24/21 08:33 Dose: 1 appln Documented by: [id number] Admin: 11/23/21 21:59 Dose: 1 appln Documented by: [id number] Admin: 11/23/21 10:36 Dose: 1 appln Documented by: [id number] Admin: 11/22/21 23:03 Dose: 1 appln Documented by: [id number] Admin: 11/22/21 09:00 Dose: 1 appln Documented by: [id number] Phenazopyridine HCl (Phenazopyridine Hcl 200 Mg Tab) 200 mg PO TID PRN PRN Reason: pain, dysuria Last Admin: 11/28/21 11:19 Dose: 200 mg Documented by: [id number] Admin: 11/27/21 09:20 Dose: 200 mg Documented by: [id number] Admin: 11/26/21 16:20 Dose: 200 mg Documented by: [id number] Tramadol HCl (Tramadol Hcl 50 Mg Tablet) 100 mg PO TID PRN PRN Reason: Pain Stop: 12/22/21 01:38 Last Admin: 11/28/21 08:20 Dose: 100 mg Documented by: [id number] Admin: 11/27/21 20:41 Dose: 100 mg Documented by: [id number] Admin: 11/27/21 12:51 Dose: 100 mg Documented by: [id number] Admin: 11/27/21 06:42 Dose: 100 mg Documented by: [id number] Admin: 11/26/21 20:34 Dose: 100 mg Documented by: [id number] Admin: 11/26/21 15:18 Dose: 100 mg Documented by: [id number] Admin: 11/26/21 08:04 Dose: 100 mg Documented by: [id number] Admin: 11/25/21 20:47 Dose: 100 mg Documented by: [id number] Admin: 11/25/21 14:18 Dose: 100 mg Documented by: [id number] Admin: 11/25/21 08:43 Dose: 100 mg Documented by: [id number] Admin: 11/24/21 20:39 Dose: 100 mg Documented by: [id number] Admin: 11/24/21 14:04 Dose: 100 mg Documented by: [id number] Admin: 11/24/21 08:31 Dose: 100 mg Documented by: [id number] Admin: 11/23/21 21:22 Dose: 100 mg Documented by: [id number] Admin: 11/23/21 15:02 Dose: 100 mg Documented by: [id number] Trazodone HCl (Trazodone Hcl 50 Mg Tab) 150 mg PO HS MARY Stop: 12/22/21 20:59 Last Admin: 11/27/21 20:41 Dose: 150 mg Documented by: [id number] Admin: 11/26/21 20:34 Dose: 150 mg Documented by: [id number] Admin: 11/25/21 20:47 Dose: 150 mg Documented by: [id number] Admin: 11/24/21 20:40 Dose: 150 mg Documented by: [id number] Admin: 11/23/21 21:57 Dose: 150 mg Documented by: [id number] Admin: 11/22/21 20:48 Dose: 150 mg Documented by: [id number] Umeclidinium/Vilanterol (Umeclidinium/Vilanterol 62.5/25mcg 7 Puffs/Inhaler) 1 puffs INH DAILY [facility] Stop: 12/22/21 08:59 Last Admin: 11/28/21 07:57 Dose: 1 puffs Documented by: [id number] Admin: 11/27/21 09:22 Dose: 1 puffs Documented by: [id number] Admin: 11/26/21 08:07 Dose: 1 puffs Documented by: [id number] Admin: 11/25/21 08:44 Dose: 1 puffs Documented by: [id number] Admin: 11/24/21 08:31 Dose: 1 puffs Documented by: [id number] Admin: 11/23/21 10:36 Dose: 1 puffs Documented by: [id number] Admin: 11/22/21 09:01 Dose: 1 puffs Documented by: [id number] Vitamin D (Cholecalciferol 1,000 Units 25 Mcg Tab) 1,000 units PO [facility] Stop: 12/22/21 20:59 Last Admin: 11/27/21 20:41 Dose: 1,000 units Documented by: [id number] Admin: 11/26/21 20:36 Dose: 1,000 units Documented by: [id number] Admin: 11/25/21 20:32 Dose: 1,000 units Documented by: [id number] Admin: 11/24/21 20:26 Dose: 1,000 units Documented by: [id number] Admin: 11/23/21 21:59 Dose: 1,000 units Documented by: [id number] Admin: 11/22/21 20:48 Dose: 1,000 units Documented by: [id number] Warfarin Sodium (Warfarin Sod 7.5 Mg Tab) 7.5 mg PO [id number]@1600 [facility] Stop: 12/22/21 15:59 Last Admin: 11/23/21 16:44 Dose: 7.5 mg Documented by: [id number] Admin: 11/22/21 15:50 Dose: 7.5 mg Documented by: [id number] Warfarin Sodium (Warfarin Sod 5 Mg Tab) 5 mg PO MoFr@1600 [facility] Stop: 02/09/22 15:59 Last Admin: 11/24/21 16:02 Dose: 5 mg Documented by: [id number] Coding Level of Care Code 59570 Inpt Consult Level 3 Diagnoses Complicated bereavement F43.21 Depression, unspecified F32.A Anxiety disorder, unspecified F41.9
[2021-11-28] MEDS: WARFARIN SOD 7.5 MG TAB PO SCH (15:20)
[2021-11-28] MEDS: WARFARIN SOD 5 MG TAB PO SCH (16:00)
--- NOTE | 2021-11-28 16:32 | Hospitalist Progress Note ---
Date of Service November 28, 2021 Assessment & Plan (1) Acute on chronic respiratory failure with hypoxia: (2) COVID-19: Plan: 61-year-old female w/ PMH of COPD, chronic respiratory failure on 3 liters oxygen, hypothyroidism, sleep apnea, paroxysmal atrial fibrillation, idiopathic cardiomyopathy, patent foramen ovale, grade I diastolic dysfunction, morbid obesity, irritable bowel syndrome, history of narcotic addiction, chronic bilateral low back pain, von Willebrand disease, depression, generalized anxiety disorder, multiple strokes, PTSD, noncompliance with medication, who lives alone, ambulates with a walker presented 11/22/21 w/ cough w/ greenish sputum x 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 She is being managed for the following: #. Acute on chronic resp failure with hypoxia #. COVID 19 infection #. 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 Present is chronic respiratory failure/COPD on 3 L oxygen at baseline. Was requiring 5l/min on admission. Patient currently requiring 3 L oxygen at bedside exam. Per chart review, her oxygen requirements more stable now. Continue dexamethasone 11/21 and s/p remdesivir 11/21- 11/25 On doxycycline 11/22 Continue nebs and supportive care/IS/Flutter valve #. Supratherapeutic INR INR of 3.7 on 11/25 INR sub-therapeutic today, c/w home dose of warfarin. PT/INR daily #. Chronic medical conditions: History of CVA, embolic; anxiety/depression For history of CVA, embolic. on warfarin. Held for now due to supratherapeutic INR today For patient anxiety and depression, continue home medication including buspirone, fluoxetine and as needed lorazepam Resume other home meds as appropriate. Pt wanted psychiatry evaluation while in hospital: buspar increased 15 mg in AM 10 mg in afternoon and evening; DC mirtazapine for concerns of serotonin syndrome w/ trazodone; consider increasing prozac in future. d/w psychiatry. #. Urinary tract infection Patient complains of pain/burning while passing urine. She is chronically incontinent of urine. 11/24 urine culture positive for Proteus mirabilis Continue with ceftriaxone 11/25, complete Pyridium DVT prophylaxis: Patient on warfarin Full code Disposition: PT/OT, CM to assist with DC planning, patient stable for discharge. Admission and Anticipated Discharge Date Admission Date: November 22, 2021 Subjective Patient was lying in bed, on 3 L nasal cannula oxygen, NAD, reports no particular problems overnight. Patient has belly pain, leg pain and headache and chest pain today. Patient still complaining of facial numbness. Patient complains multiple things as usual, ROS seems unreliable. Per RN, she is doing okay with no acute events overnight and she is eating okay. No desaturation noted with movement. Physical Exam Physical Exam: GENERAL: Alert and oriented x3. NAD, on 3L NC O2. HEENT: No pallor, no icterus. Pupils equal, round and reactive to light. Oral mucosa moist. NECK: No JVD, no neck masses. HEART: S1 and S2 heard. Regular rate and rhythm. No murmur, no gallop. RESPIRATORY SYSTEM: Normal AP diameter. No accessory muscle use. No wheezing, no crackles. ABDOMEN: Soft, bowel sounds present, nontender, no distention. CENTRAL NERVOUS SYSTEM: No facial droop. Speech is clear. Obeys simple commands. Moves extremities. EXTREMITIES: No edema, no erythema seen. Results & Data Results & Data ([facility]) Vital Signs (Past 12 Hours) Vital Signs Temp Pulse Pulse Resp BP Pulse Ox 11/28/21 16:04 36.6 C 69 19 118/58 L 93 11/28/21 11:23 36.6 C 95 H 19 137/70 93 11/28/21 07:34 36.6 C 73 20 119/40 L 97
[2021-11-28] MEDS: LEVALBUTEROL HCL 1.25 MG/3 ML NEB NEB PRN (18:12)
[2021-11-28] MEDS: CHOLECALCIFEROL 1,000 UNITS 25 MCG TAB PO SCH (20:28)
[2021-11-28] MEDS: traZODone HCL 50 MG TAB PO SCH (21:13)
[2021-11-29] MEDS: ACETAMINOPHEN 325 MG TAB PO SCH ×4 (05:31→23:57)
[2021-11-29 07:11] LABS: INR 1.5 (0.9-1.1); Prothrombin Time 14.5 Seconds (9.0-12.0)
[2021-11-29] MEDS: LORazepam 0.5 MG TAB PO PRN ×3 (07:47→23:55)
[2021-11-29] MEDS: traMADol HCL 50 MG TABLET PO PRN ×3 (07:51→23:57)
[2021-11-29] MEDS: dexAMETHasone 6 MG in SYRINGE 0 ML IV SCH (09:21)
[2021-11-29] MEDS: busPIRone 15 MG TAB PO SCH (09:22)
[2021-11-29] MEDS: FLUoxetine HCL 20 MG CAP PO SCH (09:22)
[2021-11-29] MEDS: UMECLIDINIUM/VILANTEROL 62.5/25MCG 7 PUFFS/INHALER INH SCH (09:23)
[2021-11-29] MEDS: ISOSORBIDE MONO EXTENDED REL 30 MG TABCR PO SCH (09:24)
[2021-11-29] MEDS: guaiFENesin 600 MG TABCR PO SCH ×2 (09:25→20:01)
[2021-11-29] MEDS: NYSTATIN POWDER 15GM BTL EXT SCH ×2 (09:26→20:00)
[2021-11-29] MEDS: LIDOCAINE 5% 1 PATCH TD SCH (09:26)
[2021-11-29] MEDS: cefTRIAXone SODIUM 2,000 MG in DEXTROSE 5% 50 ML IV SCH (12:55)
[2021-11-29] MEDS: busPIRone 5 MG TAB PO SCH ×2 (12:56→20:01)
[2021-11-29] MEDS: WARFARIN SOD 7.5 MG TAB PO SCH (16:15)
--- NOTE | 2021-11-29 17:30 | Hospitalist Progress Note ---
Date of Service November 29, 2021 Assessment & Plan (1) Acute on chronic respiratory failure with hypoxia: (2) COVID-19: Plan: 61-year-old female w/ PMH of COPD, chronic respiratory failure on 3 liters oxygen, hypothyroidism, sleep apnea, paroxysmal atrial fibrillation, idiopathic cardiomyopathy, patent foramen ovale, grade I diastolic dysfunction, morbid obesity, irritable bowel syndrome, history of narcotic addiction, chronic bilateral low back pain, von Willebrand disease, depression, generalized anxiety disorder, multiple strokes, PTSD, noncompliance with medication, who lives alone, ambulates with a walker presented 11/22/21 w/ cough w/ greenish sputum 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 She is being managed for the following: #. Acute on chronic resp failure with hypoxia #. COVID 19 infection #. 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 Present is chronic respiratory failure/COPD on 3 L oxygen at baseline. Was requiring 5l/min on admission. Patient currently requiring 3 L oxygen at bedside exam. Per chart review, her oxygen requirements more stable now. Continue dexamethasone 11/21 and s/p remdesivir 11/21- 11/25 s/p doxycycline 11/22 -11/29 Continue nebs and supportive care/IS/Flutter valve #. Supratherapeutic INR INR of 3.7 on 11/25 INR sub-therapeutic today, c/w home dose of warfarin. PT/INR daily, maintain SCDs #. Chronic medical conditions: History of CVA, embolic; anxiety/depression For history of CVA, embolic. on warfarin. Held for now due to supratherapeutic INR today For patient anxiety and depression, continue home medication including buspirone, fluoxetine and as needed lorazepam Resume other home meds as appropriate. Pt wanted psychiatry evaluation while in hospital: buspar increased 15 mg in AM 10 mg in afternoon and evening; DC mirtazapine for concerns of serotonin syndrome w/ trazodone; consider increasing prozac in future. d/w psychiatry. #. Urinary tract infection Patient complains of pain/burning while passing urine -- seems improving but can't exactly tell as patient will say yes to any questions asked. She is c hronically incontinent of urine. 11/24 urine culture positive for Proteus mirabilis Continue with ceftriaxone 11/25, complete Pyridium DVT prophylaxis: Patient on warfarin Full code Disposition: PT/OT, CM to assist with DC planning, patient stable for discharge. Admission and Anticipated Discharge Date Admission Date: November 22, 2021 Subjective Patient was lying in bed, on 3 L nasal cannula oxygen, NAD, reports no particular problems overnight. Patient with headache today and did not mention about other pains. CT scan of head was done this admission and negative for acute finding --> Patient still complaining of facial numbness. Patient complains multiple things as usual, ROS seems unreliable. Per RN, she is doing okay with no acute events overnight and she is eating okay. No desaturation noted with movement. Physical Exam Physical Exam: GENERAL: Alert and oriented x3. NAD, on 3L NC O2. HEENT: No pallor, no icterus. Pupils equal, round and reactive to light. Oral mucosa moist. NECK: No JVD, no neck masses. HEART: S1 and S2 heard. Regular rate and rhythm. No murmur, no gallop. RESPIRATORY SYSTEM: Normal AP diameter. No accessory muscle use. No wheezing, no crackles. ABDOMEN: Soft, bowel sounds present, nontender, no distention. CENTRAL NERVOUS SYSTEM: No facial droop. Speech is clear. Obeys simple commands. Moves extremities. EXTREMITIES: No edema, no erythema seen. Results & Data Results & Data ([facility]) Vital Signs (Past 12 Hours) Vital Signs Temp Pulse Resp BP BP Pulse Ox 11/29/21 15:56 36.5 C 83 20 94/56 L 96 11/29/21 11:05 36.5 C 86 19 117/57 L 96 11/29/21 07:42 36.8 C 78 19 124/61 98
[2021-11-29] MEDS: CHOLECALCIFEROL 1,000 UNITS 25 MCG TAB PO SCH (20:01)
[2021-11-29] MEDS: traZODone HCL 50 MG TAB PO SCH (20:08)
[2021-11-30] MEDS: ACETAMINOPHEN 325 MG TAB PO SCH ×3 (06:14→17:49)
[2021-11-30 08:14] LABS: INR 2.2 (0.9-1.1); Prothrombin Time 20.8 Seconds (9.0-12.0)
[2021-11-30] MEDS: ISOSORBIDE MONO EXTENDED REL 30 MG TABCR PO SCH (08:26)
[2021-11-30] MEDS: busPIRone 15 MG TAB PO SCH ×2 (08:26→19:57)
[2021-11-30] MEDS: dexAMETHasone 6 MG in SYRINGE 0 ML IV SCH (08:26)
[2021-11-30] MEDS: guaiFENesin 600 MG TABCR PO SCH ×2 (08:27→19:58)
[2021-11-30] MEDS: LIDOCAINE 5% 1 PATCH TD SCH (08:27)
[2021-11-30] MEDS: FLUoxetine HCL 20 MG CAP PO SCH (08:27)
[2021-11-30] MEDS: LORazepam 0.5 MG TAB PO PRN ×2 (08:27→16:36)
[2021-11-30] MEDS: UMECLIDINIUM/VILANTEROL 62.5/25MCG 7 PUFFS/INHALER INH SCH (08:28)
[2021-11-30] MEDS: traMADol HCL 50 MG TABLET PO PRN ×2 (08:28→16:36)
[2021-11-30] MEDS: NYSTATIN POWDER 15GM BTL EXT SCH ×2 (08:28→19:58)
[2021-11-30] MEDS: PHENAZOPYRIDINE HCL 200 MG TAB PO PRN ×2 (09:22→17:49)
[2021-11-30] MEDS: busPIRone 5 MG TAB PO SCH (13:38)
--- NOTE | 2021-11-30 16:15 | Hospitalist Progress Note ---
Date of Service November 30, 2021 Assessment & Plan (1) Acute on chronic respiratory failure with hypoxia: (2) COVID-19: Plan: 61-year-old female w/ PMH of COPD, chronic respiratory failure on 3 liters oxygen, hypothyroidism, sleep apnea, paroxysmal atrial fibrillation, idiopathic cardiomyopathy, patent foramen ovale, grade I diastolic dysfunction, morbid obesity, irritable bowel syndrome, history of narcotic addiction, chronic bilateral low back pain, von Willebrand disease, depression, generalized anxiety disorder, multiple strokes, PTSD, noncompliance with medication, who lives alone, ambulates with a walker presented 11/22/21 w/ cough w/ greenish sputum 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 She is being managed for the following: #. Acute on chronic resp failure with hypoxia #. COVID 19 infection #. 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 Present is chronic respiratory failure/COPD on 3 L oxygen at baseline. Was requiring 5l/min on admission. Patient currently requiring 3 L oxygen at bedside exam. Per chart review, her oxygen requirements more stable now. s/p dexamethasone 11/21-11/30; and s/p remdesivir 11/21- 11/25 s/p doxycycline 11/22 -11/29 Continue nebs and supportive care/IS/Flutter valve #. Supratherapeutic INR INR of 3.7 on 11/25 INR therapeutic today, c/w home dose of warfarin. PT/INR daily, maintain SCDs #. Chronic medical conditions: History of CVA, embolic; anxiety/depression For history of CVA, embolic. on warfarin. Held for now due to supratherapeutic INR today For patient anxiety and depression, continue home medication including buspirone, fluoxetine and as needed lorazepam Resume other home meds as appropriate. Pt wanted psychiatry evaluation while in hospital: buspar increased 15 mg in AM 10 mg in afternoon and evening; DC mirtazapine for concerns of serotonin syndrome w/ trazodone; consider increasing prozac in future. #. Urinary tract infection Patient complains of pain/burning while passing urine -- seems improving but can't exactly tell as patient will say yes to any questions asked. She is chronically incontinent of urine. 11/24 urine culture positive for Proteus mirabilis s/p ceftriaxone 11/25-, prn Pyridium DVT prophylaxis: Patient on warfarin Full code Disposition: PT/OT, CM to assist with DC planning, patient stable for discharge. Admission and Anticipated Discharge Date Admission Date: November 22, 2021 Subjective Patient was lying semi upright in bed, on 3 L nasal cannula oxygen, NAD, reports no particular problems overnight. Per RN, pt doing better, eating mildly e xcessive, no acute events overnight and pt complains about staff to other staff all the time and also pt has been requesting/pressing for pain meds earlier than scheduled even when she has been made aware. Patient with headache and belly pain today. Patient complains multiple things as usual, ROS seems unreliable. No desaturation noted with movement. Physical Exam Physical Exam: GENERAL: Alert and oriented x3. NAD, on 3L NC O2. HEENT: No pallor, no icterus. Pupils equal, round and reactive to light. Oral mucosa moist. NECK: No JVD, no neck masses. HEART: S1 and S2 heard. Regular rate and rhythm. No murmur, no gallop. RESPIRATORY SYSTEM: Normal AP diameter. No accessory muscle use. No wheezing, no crackles. ABDOMEN: Soft, bowel sounds present, nontender, no distention. CENTRAL NERVOUS SYSTEM: No facial droop. Speech is clear. Obeys simple commands. Moves extremities. EXTREMITIES: No edema, no erythema seen. Results & Data Results & Data ([facility]) Vital Signs (Past 12 Hours) Vital Signs Temp Pulse Resp BP Pulse Ox 11/30/21 15:07 37.1 C 120 H 20 112/66 92 11/30/21 11:23 36.5 C 92 H 21 122/72 94 11/30/21 07:15 36.5 C 78 20 143/89 H 92
[2021-11-30] MEDS: WARFARIN SOD 7.5 MG TAB PO SCH (16:36)
[2021-11-30] MEDS: CHOLECALCIFEROL 1,000 UNITS 25 MCG TAB PO SCH (19:56)
[2021-11-30] MEDS: traZODone HCL 50 MG TAB PO SCH (20:16)
[2021-12-01] MEDS: traMADol HCL 50 MG TABLET PO PRN ×4 (00:37→21:54)
[2021-12-01] MEDS: LORazepam 0.5 MG TAB PO PRN ×4 (00:38→21:53)
[2021-12-01] MEDS: ACETAMINOPHEN 325 MG TAB PO SCH ×2 (00:38→05:38)
[2021-12-01 07:25] LABS: Hematocrit (blood only) 36.5 % (37-47); Hemoglobin 11.5 g/dL (12.0-16.0); Mean Corpuscular Hemoglobin 28.8 pg (25-34); Mean Corpuscular Hgb Conc 31.5 g/dL (32-36); Mean Corpuscular Volume 91.3 fL (80-100); Mean Platelet Volume 8.5 fL (7.4-10.4); Platelet Count 456 K/uL (130-400); RDW Coefficient of Variation 17.4 % (11.5-14.5); RDW Standard Deviation 58.5 fL (36.4-46.3); White Blood Count 17.75 K/uL (4.8-10.8)
[2021-12-01 07:42] LABS: BUN Creatinine Ratio 52.5 (10-20); Calcium 8.6 mg/dl (8.5-10.1); Creatinine Clr Calc Pharmacy 116.2 ml/min; Est GFR (African American) 113.4 ml/min; Est GFR (Non-African American) 97.8 ml/min; Magnesium 2.1 mg/dl (1.7-2.4); Potassium 4.5 mmol/L (3.5-5.1)
[2021-12-01] MEDS: PHENAZOPYRIDINE HCL 200 MG TAB PO PRN (08:04)
[2021-12-01] MEDS: LIDOCAINE 5% 1 PATCH TD SCH (08:04)
[2021-12-01] MEDS: guaiFENesin 600 MG TABCR PO SCH ×2 (08:05→21:45)
[2021-12-01] MEDS: FLUoxetine HCL 20 MG CAP PO SCH (08:05)
[2021-12-01] MEDS: ISOSORBIDE MONO EXTENDED REL 30 MG TABCR PO SCH (08:05)
[2021-12-01] MEDS: CHOLECALCIFEROL 1,000 UNITS 25 MCG TAB PO SCH (08:06)
[2021-12-01] MEDS: busPIRone 15 MG TAB PO SCH ×3 (08:06→21:45)
[2021-12-01] MEDS: UMECLIDINIUM/VILANTEROL 62.5/25MCG 7 PUFFS/INHALER INH SCH (08:09)
[2021-12-01] MEDS: ERGOCALCIFEROL 50,000 UNITS 1250 MCG CAP PO SCH (08:09)
[2021-12-01] MEDS: NYSTATIN POWDER 15GM BTL EXT SCH ×2 (08:09→21:45)
--- NOTE | 2021-12-01 09:33 | Communication Note ---
Date of Service: December 01, 2021 interim progress reviewed. Patient has been splitting staff to seek more frequent benzodiazepines and misrepresenting recs of psychiatry. Patient has a l ludwig hx of medication focus and has received varying doses of Ativan on an outpatient basis for some time. Given age, respiratory status, polypharmacy with tramadol, etc Ativan is less than ideal, but ultimately deferring to outpatient provider rather than tapering here. Remeron was discontinued this admission by Dr. Sylvester as patient reported ineffective and she has complained about sleep. She has had extensive med trials and her persistent anxiety complaints are mainly around requests for additional Ativan which is not clinically appropriate. Our service has attempted to provide support around non-pharmacologic interventions for anxiety and she remains focussed on Ativan. Has declined titration of Prozac and I believe further titration of Buspar would be very low yield as she reports ineffective but doesn't want to taper as "needs something" every few hours. follows with [facility] psychiatry as an outpatient.
[2021-12-01] MEDS ORDERED: COUGH DROP (SUGAR FREE) LOZ 24 LOZ/1 BOX BUCCAL ONE (10:00)
[2021-12-01] MEDS ORDERED: CHLORASEPTIC 1.4% SOLN 180 ML BTL MT PRN (10:03)
[2021-12-01 11:10] LABS: C Reactive Protein 0.79 mg/dl (0-0.5)
--- NOTE | 2021-12-01 13:00 | XRay Report ---
XR KUB/Abdomen 1 view CLINICAL HISTORY: Lower abdominal pain. COMPARISON STUDY: 11/08/2020 TECHNIQUE: Single view of the abdomen. FINDINGS: There are fairly loops of both large and small bowel without evidence for disproportionate dilatation or obstruction. The There is no evidence for organomegaly or gross intra-abdominal mass. No abnormal calcifications are seen along the course of the urinary tracts bilaterally. No acute osseous patholo gy. IMPRESSION: 1.No acute intra-abdominal abnormality. ACT 112: Negative or not required by law. Electronically signed by: Cuate Duque M.D. 12/01/2021 12:59 PM
[2021-12-01] MEDS: ACETAMINOPHEN 325 MG TAB PO PRN (14:33)
--- NOTE | 2021-12-01 15:57 | Hospitalist Progress Note ---
Date of Service December 01, 2021 Assessment & Plan (1) Acute on chronic respiratory failure with hypoxia: (2) COVID-19: Plan: 61-year-old female w/ PMH of COPD, chronic respiratory failure on 3 liters oxygen, hypothyroidism, sleep apnea, paroxysmal atrial fibrillation, idiopathic cardiomyopathy, patent foramen ovale, grade I diastolic dysfunction, morbid obesity, irritable bowel syndrome, history of narcotic addiction, chronic bilateral low back pain, von Willebrand disease, depression, generalized anxiety disorder, multiple strokes, PTSD, noncompliance with medication, who lives alone, ambulates with a walker presented 11/22/21 w/ cough w/ greenish sputum 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 She is being managed for the following: #. Acute on chronic resp failure with hypoxia #. COVID 19 infection #. 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 Present is chronic respiratory failure/COPD on 3 L oxygen at baseline. Was requiring 5l/min on admission. Patient currently requiring 3 L oxygen at bedside exam. Per chart review, her oxygen requirements more stable now. s/p dexamethasone 11/21-11/30; and s/p remdesivir 11/21- 11/25 s/p doxycycline 11/22 -11/29 Continue nebs and supportive care/IS/Flutter valve #. Supratherapeutic INR INR of 3.7 on 11/25 INR therapeutic today, c/w home dose of warfarin. 12/01 Discussed with pharmacy, readjusted her Coumadin dose to 5 mg MWF and 7.5mg daily rest of the week. PT/INR daily, #. Chronic medical conditions: History of CVA, embolic; anxiety/depression For history of CVA, embolic. on warfarin. For patient anxiety and depression, continue home medication including buspirone, fluoxetine and as needed lorazepam Resume other home meds as appropriate. Pt wanted psychiatry evaluation while in hospital: buspar increased 15 mg in AM 10 mg in afternoon and evening; DC mirtazapine for concerns of serotonin syndrome w/ trazodone; consider increasing prozac in future. #. Urinary tract infection Patient complains of pain/burning while passing urine -- seems improving but can't exactly tell as patient will say yes to any questions asked. She is chronically incontinent of urine. 11/24 urine culture positive for Proteus mirabilis s/p ceftriaxone 11/25-, prn Pyridium DVT prophylaxis: Patient on warfarin Full code Disposition: PT/OT, CM to assist with DC planning, patient stable for discharge. to med/surg until then Admission and Anticipated Discharge Date Admission Date: November 22, 2021 Subjective Patient was lying semi upright in bed, on 3 L nasal cannula oxygen, NAD, reports no particular problems overnight. Per RN, pt doing better, eating a lot, no acute events overnight. Patient with headache , chest pain, face numbness and belly pain today. Patient complains multiple things as usual, ROS seems unreliable. No desaturation noted with movement. Physical Exam Physical Exam: GENERAL: Alert and oriented x3. NAD, on 3L NC O2. HEENT: No pallor, no icterus. Pupils equal, round and reactive to light. Oral mucosa moist. NECK: No JVD, no neck masses. HEART: S1 and S2 heard. Regular rate and rhythm. No murmur, no gallop. RESPIRATORY SYSTEM: Normal AP diameter. No accessory muscle use. No wheezing, no crackles. ABDOMEN: Soft, bowel sounds present, lower belly tender (not sure how much of that is true), no distention. CENTRAL NERVOUS SYSTEM: No facial droop. Speech is clear. Obeys simple commands. Moves extremities. EXTREMITIES: No edema, no erythema seen. Results & Data Results & Data ([facility]) Vital Signs (Past 12 Hours) Vital Signs Temp Pulse Resp BP Pulse Ox 12/01/21 15:41 36.8 C 82 19 106/59 L 94 12/01/21 11:55 36.7 C 91 H 19 98/78 L 94 12/01/21 07:28 36.8 C 71 19 127/71 93
[2021-12-01] MEDS ORDERED: WARFARIN SOD 5 MG TAB PO SCH (16:00)
--- NOTE | 2021-12-01 17:40 | Surgery Consultation ---
Date of Consultation December 01, 2021 Assessment & Plan (1) Blister of skin: This is a 61yF with a PMH of afib on coumadin, chronic respiratory failure, h/o CVA, anxiety/depression who presented to the [facility] ED on 11/21/21 with respiratory issues and general malaise who was found to be Covid +. Surgery was consulted today for consideration of I&D of area of fluctuance on patient's R forearm present for the last few days. On exam has an area of 1-2cm circumferential fluctuance, appears to be a blister of the skin, with some bloody fluid underneath. Per patient report it had opened up previously and was draining, but has since stopped. Area of concern seems consistent with a blister, not a true abscess. For now recommend local wound care. Area will likely open up and drain on its own at some point. Supervising Physician Co-Signing Physician Notes Agree with above 61-year-old female with a blister to the right forearm No signs of abscess Will place protective dressing over the area Will allow this to resolve on its own without drainage No plans for I&D, please call back with any questions or concerns History of Present Illness Attending Physician: Cherie Darnell MD History of Present Illness This is a 61yF with a PMH of afib on coumadin, chronic respiratory failure, h/o CVA, anxiety/depression who presented to the [facility] ED on 11/21/21 with respiratory issues and general malaise who was found to be Covid +. Surgery was consulted today for consideration of I&D of area of fluctuance on patient's R forearm. Per patient she says it popped up around 3 days ago. She says it has drained some fluid, but has since stopped. She reports tenderness over the area. She says overall she is not feeling much improved, still reports some SOB and is currently dealing with a UTI. Allergies Allergy/AdvReac Type Severity Reaction Status Date / Time aspirin Allergy Unknown TAKES Verified 11/21/21 21:45 COUMADIN salicylates AdvReac Unknown ?DUE TO Verified 11/21/21 21:45 COUMADIN? Home Medications Medication Instructions Recorded Confirmed Type isosorbide mononitrate 30 mg 30 mg PO QAM #0 tab 09/22/20 11/21/21 Rx tablet,extended release 24 hr cholecalciferol (vitamin D3) 1,250 1,250 mcg PO WK 05/20/21 11/21/21 History mcg (50,000 unit) capsule lorazepam 0.5 mg tablet 0.5 mg PO TID PRN 05/20/21 11/21/21 History tramadol 100 mg tablet 100 mg PO Q8 PRN 05/20/21 11/21/21 History buspirone 10 mg tablet 10 mg PO TID #0 tab 05/25/21 11/21/21 Rx cholecalciferol (vitamin D3) 25 25 mcg PO HS 06/13/21 11/21/21 History mcg (1,000 unit) capsule warfarin 2.5 mg tablet 7.5 mg PO 5XWK 06/13/21 11/21/21 History warfarin 5 mg tablet 5 mg PO 2XWK 06/13/21 11/21/21 History fluoxetine 20 mg capsule 20 mg PO QAM 11/21/21 11/21/21 History mirtazapine 7.5 mg tablet 7.5 mg PO HS 11/21/21 11/21/21 History nystatin 100,000 unit/gram topical 1 applic TOPICAL BID 11/21/21 11/21/21 History powder ([facility]) trazodone 150 mg tablet 150 mg PO HS 11/21/21 11/21/21 History umeclidinium 62.5 mcg-vilanterol 1 inh INHALATION DAILY 11/21/21 11/21/21 History 25 mcg/actuation powdr for inhalation (Anoro Ellipta) Patient History Medical History (Updated 12/01/21 @ 18:18 by Johanna Baker PA-C) Anxiety and depression Atrial fibrillation Atypical chest pain Cerebrovascular disease Chronic pain on daily narcotics Complicated bereavement History of stroke "embolic stroke, underlying PFO" Morbid obesity PAF (paroxysmal atrial fibrillation) Submucosal lesion of stomach Noted on EGD 11/06/20 Supratherapeutic INR Surgical History Status post cholecystectomy Status post hysterectomy Family History Other Heart disease Social History Smoking Status: Former smoker Tobacco Type: Cigarettes Second Hand Exposure: No; Hx Alcohol Use: No Hx Substance Use: No Preferred Language: Azeri Communication Ability: Effective [employer] Incident Responder Required: No Beliefs That Will Affect Care: None marital status: / Current Living Situation: Alone Current Living Situation Comment: in march Other Information That Helps Us Care for You: No Feels Safe at Home: Yes Assistive Devices: Oxygen - Continuous Review of Systems Respiratory: + dyspnea Integumentary: area of tenderness over R forearm with h/o seepage of fluid Physical Exam Physical Exam: awake, using cellphone Respiratory: normal respiratory effort on supplemental O2 Skin: ~1-2 cm area of fluctuance over R forearm, bloody fluid under blistered skin, tender Results & Data ([facility]) Vital Signs (Past 12 Hours) Vital Signs Temp Pulse Resp BP Pulse Ox 12/01/21 15:41 36.8 C 82 19 106/59 L 94 12/01/21 11:55 36.7 C 91 H 19 98/78 L 94 12/01/21 07:28 36.8 C 71 19 127/71 93 PG Care Time/CCT Total # of Minutes Spent Total Time Spent with Patient: Total time spent is greater than 50% in coordination of care (as documented) at patient's floor/unit and/or counseling patient: Coding Level of Care Code 85455 Initial Inpt Care Lvl 1 Diagnoses Blister of skin T14.8XXA
[2021-12-01] MEDS: traZODone HCL 50 MG TAB PO SCH (21:45)
[2021-12-01 22:41] LABS: Appearance Urine Clear (Clear); Bacteria Urine Automated Negative (Negative); Bilirubin Urine Negative (Negative); Blood Urine Negative (Negative); Cast Urine Automated 0 /lpf (0-5); Color Urine Dark Yellow; Glucose Urine UA Negative (Negative); Ketones Urine Negative (Negative); Leukocyte Esterase Urine Negative (Negative); Nitrite Urine Positive (Negative); Protein Urine Negative (Negative); RBC Urine Automated 0-4 /hpf (0-4); Specific Gravity Urine 1.012 (1.000-1.030); Urobilinogen Urine Negative (Negative)
[2021-12-02] MEDS: ACETAMINOPHEN 325 MG TAB PO PRN (05:09)
[2021-12-02] MEDS: traMADol HCL 50 MG TABLET PO PRN ×3 (07:15→21:15)
[2021-12-02] MEDS: LORazepam 0.5 MG TAB PO PRN ×3 (07:16→21:16)
[2021-12-02] MEDS: guaiFENesin 600 MG TABCR PO SCH ×2 (07:16→21:14)
[2021-12-02] MEDS: busPIRone 15 MG TAB PO SCH ×2 (07:16→14:55)
[2021-12-02] MEDS: NYSTATIN POWDER 15GM BTL EXT SCH ×2 (07:17→21:15)
[2021-12-02] MEDS: ISOSORBIDE MONO EXTENDED REL 30 MG TABCR PO SCH (07:17)
[2021-12-02] MEDS: FLUoxetine HCL 20 MG CAP PO SCH (07:17)
[2021-12-02] MEDS: LIDOCAINE 5% 1 PATCH TD SCH (07:17)
[2021-12-02] MEDS: UMECLIDINIUM/VILANTEROL 62.5/25MCG 7 PUFFS/INHALER INH SCH (07:17)
[2021-12-02 07:50] LABS: Hematocrit (blood only) 36.6 % (37-47); Hemoglobin 11.4 g/dL (12.0-16.0); Mean Corpuscular Hemoglobin 29.7 pg (25-34); Mean Corpuscular Hgb Conc 31.1 g/dL (32-36); Mean Corpuscular Volume 95.3 fL (80-100); Mean Platelet Volume 8.6 fL (7.4-10.4); Platelet Count 424 K/uL (130-400); RDW Standard Deviation 62.8 fL (36.4-46.3); Red Blood Count 3.84 M/uL (4.2-5.4); White Blood Count 15.72 K/uL (4.8-10.8)
[2021-12-02 08:06] LABS: INR 3.9 (0.9-1.1); Prothrombin Time 35.4 Seconds (9.0-12.0)
[2021-12-02] MEDS ORDERED: WARFARIN SOD 7.5 MG TAB PO SCH (16:00)
--- NOTE | 2021-12-02 17:07 | Hospitalist Progress Note ---
Date of Service December 02, 2021 Assessment & Plan (1) Acute on chronic respiratory failure with hypoxia: (2) COVID-19: Plan: 61-year-old female w/ PMH of COPD, chronic respiratory failure on 3 liters oxygen, hypothyroidism, sleep apnea, paroxysmal atrial fibrillation, idiopathic cardiomyopathy, patent foramen ovale, grade I diastolic dysfunction, morbid obesity, irritable bowel syndrome, history of narcotic addiction, chronic bilateral low back pain, von Willebrand disease, depression, generalized anxiety disorder, multiple strokes, PTSD, noncompliance with medication, who lives alone, ambulates with a walker presented 11/22/21 w/ cough w/ greenish sputum x 1 wk 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 She is being managed for the following: #. Acute on chronic resp failure with hypoxia #. COVID 19 infection #. 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 Present is chronic respiratory failure/COPD on 3 L oxygen at baseline. Was requiring 5l/min on admission. Patient currently requiring 3 L oxygen at bedside exam. Per chart review, her oxygen requirements more stable now. s/p dexamethasone 11/21-11/30; and s/p remdesivir 11/21- 11/25 s/p doxycycline 11/22 -11/29 Continue nebs and supportive care/IS/Flutter valve #. Supratherapeutic INR INR of 3.7 on 11/25 INR supra-therapeutic today, hold warfarin today. 12/01 Discussed with pharmacy, readjusted her Coumadin dose to 5 mg MWF and 7.5mg daily rest of the week --> since INR seems to be supratherapeutic even after this adjustment, will need further discussion with pharmacy for revised warfarin doses. PT/INR daily #. Chronic medical conditions: History of CVA, embolic; anxiety/depression For history of CVA, embolic. on warfarin. For patient anxiety and depression, continue home medication including buspirone, fluoxetine and as needed lorazepam Resume other home meds as appropriate. Pt wanted psychiatry evaluation while in hospital: buspar increased 15 mg in AM 10 mg in afternoon and evening; DC mirtazapine for concerns of serotonin syndrome w/ trazodone; consider increasing prozac in future. #. Urinary tract infection Patient complains of pain/burning while passing urine -- seems improving but can't exactly tell as patient will say yes to any questions asked. She is chronically incontinent of urine. 11/24 urine culture positive for Proteus mirabilis s/p ceftriaxone 11/25-, prn Pyridium DVT prophylaxis: Patient on warfarin Full code Disposition: PT/OT, CM to assist with DC planning, patient stable for discharge. to med/surg until then Admission and Anticipated Discharge Date Admission Date: November 22, 2021 Subjective Patient was lying semi upright in bed, on 3 L nasal cannula oxygen, NAD, reports no particular problems overnight. Per RN, pt doing better, eating a lot as usual, no acute events overnight. Patient with headache , chest pain, face numbness and belly pain again today. Patient complains multiple things as usual, ROS seems unreliable. No desat uration noted with movement. Physical Exam Physical Exam: GENERAL: Alert and oriented x3. NAD, on 3L NC O2. HEENT: No pallor, no icterus. Pupils equal, round and reactive to light. Oral mucosa moist. NECK: No JVD, no neck masses. HEART: S1 and S2 heard. Regular rate and rhythm. No murmur, no gallop. RESPIRATORY SYSTEM: Normal AP diameter. No accessory muscle use. No wheezing, no crackles. ABDOMEN: Soft, bowel sounds present, lower belly tender (not sure how much of that is true), no distention. CENTRAL NERVOUS SYSTEM: No facial droop. Speech is clear. Obeys simple commands. Moves extremities. EXTREMITIES: No edema, no erythema seen. Results & Data Results & Data ([facility]) Vital Signs (Past 12 Hours) Vital Signs Temp Pulse Resp BP Pulse Ox 12/02/21 15:45 36.9 C 92 H 19 103/62 92 12/02/21 12:36 36.7 C 90 20 108/69 94 12/02/21 10:59 96 12/02/21 07:19 36.6 C 88 19 110/58 L 93
[2021-12-02] MEDS: busPIRone 5 MG TAB PO SCH (21:14)
[2021-12-02] MEDS: CHOLECALCIFEROL 1,000 UNITS 25 MCG TAB PO SCH (21:14)
[2021-12-02] MEDS: traZODone HCL 50 MG TAB PO SCH (21:16)
[2021-12-03] MEDS: ACETAMINOPHEN 325 MG TAB PO PRN (02:56)
[2021-12-03 07:40] LABS: INR 3.4 (0.9-1.1); Prothrombin Time 31.3 Seconds (9.0-12.0)
[2021-12-03] MEDS: traMADol HCL 50 MG TABLET PO PRN ×2 (07:43→14:00)
[2021-12-03] MEDS: LORazepam 0.5 MG TAB PO PRN ×2 (07:43→14:00)
[2021-12-03] MEDS: FLUoxetine HCL 20 MG CAP PO SCH (08:48)
[2021-12-03] MEDS: guaiFENesin 600 MG TABCR PO SCH (08:49)
[2021-12-03] MEDS: busPIRone 15 MG TAB PO SCH (08:49)
[2021-12-03] MEDS: ISOSORBIDE MONO EXTENDED REL 30 MG TABCR PO SCH (08:51)
[2021-12-03] MEDS: UMECLIDINIUM/VILANTEROL 62.5/25MCG 7 PUFFS/INHALER INH SCH (08:51)
[2021-12-03] MEDS: LIDOCAINE 5% 1 PATCH TD SCH (08:52)
[2021-12-03] MEDS: NYSTATIN POWDER 15GM BTL EXT SCH (08:52)
--- NOTE | 2021-12-03 12:16 | Discharge Summary ---
Date of Service December 03, 2021 Admission HPI Per Admitting Provider 61-year-old female with past medical history significant for COPD, chronic respiratory failure on 3 liters oxygen, hypothyroidism, sleep apnea, history of paroxysmal atrial fibrillation, history of idiopathic cardiomyopathy, patent foramen ovale, grade I diastolic dysfunction, morbid obesity, irritable bowel syndrome, history of narcotic addiction, chronic bilateral low back pain, von Willebrand disease, depression, generalized anxiety disorder, history of multiple strokes, PTSD, noncompliance with medication, who lives alone, ambulates with a walker. Son and granddaughter live close by. Brought in because of one week of having lot of cough and greenish phlegm, headache, some nausea, shortness of breath and generalized body weakness, feeling hot and cold and she is not COVID vaccinated and COVID test came back positive in the ER .On 3 liters oxygen at home. Currently, requiring 4 liters. She is afebrile in the ER. The patient says that she had no chest discomfort, cough, no abdominal pain, no diarrhea or constipation. No blood in the stool or black stools. Normal bladder movements. She is chronically incontinent of urine. She says lot of headache and asking for pain medication, vision is not good at baseline, has lot of sore throat, no runny nose. Poor appetite Admission Exam Per Admitting Provider GENERAL: The patient is morbidly obese, not in acute distress. VITAL SIGNS: Temperature 36.9, pulse 101, respiratory rate 20, blood pressure 112/61, oxygen 95% on 4 liters. HEENT: Pupils equal, round and reactive to light. Oral mucosa dry. NECK: No JVD, no neck masses. CARDIOVASCULAR: S1 and S2 heard. Regular rate and rhythm. No murmur, no gallop. RESPIRATORY SYSTEM: Normal AP diameter. No accessory muscle use. Bilateral wheezing and rhonchi heard. No crackles. ABDOMEN: Soft, bowel sounds present, nontender, no distention. CENTRAL NERVOUS SYSTEM: Cranial nerves II-XII grossly intact, nonfocal. EXTREMITIES: No edema, no erythema seen. Principal Diagnosis Acute on chronic hypoxic respiratory failure COVID-19 infection COPD exacerbation Supratherapeutic INR Urinary tract infection Anxiety Discharge Exam Constitutional + well hydrated; no acute distress Eyes PERRL, conjunctivae normal, anicteric sclerae ENMT external ear and nose normal, oropharynx normal Respiratory normal respiratory effort, lungs clear to auscultation On nasal cannula Cardiovascular Rate/Rhythm: regular rate and regular rhythm S1 S2 Gastrointestinal (Abdomen) normal bowel sounds, soft, nontender, no hepatosplenomegaly Neurologic PERRL, EOMI, accommodation nl, no face palsy, no dysarthria Psychiatric A+Ox3, euthymic affect Discharge Data Allergies Allergy/AdvReac Type Severity Reaction Status Date / Time aspirin Allergy Unknown TAKES Verified 11/21/21 21:45 COUMADIN salicylates AdvReac Unknown ?DUE TO Verified 11/21/21 21:45 COUMADIN? Consultations 11/21/21 21:45 ED Decision to Admit Stat 11/28/21 11:48 Consult Psychiatry Routine 12/01/21 17:15 Consult General Surgery Routine Ordered Studies 11/23/21 11:02 CT head/brain wo con Urgent Hospital Course (1) Acute on chronic respiratory failure with hypoxia: (2) COVID-19: 61-year-old female w/ PMH of COPD, chronic respiratory failure on 3 liters oxygen, hypothyroidism, sleep apnea, paroxysmal atrial fibrillation, idiopathic cardiomyopathy, patent foramen ovale, grade I diastolic dysfunction, morbid obesity, irritable bowel syndrome, history of narcotic addiction, chronic bilateral low back pain, von Willebrand disease, depression, generalized anxiety disorder, multiple strokes, PTSD, noncompliance with medication, who lives alone, ambulates with a walker presented 11/22/21 w/ cough w/ greenish sputum x 1 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 She is being managed for the following: #. Acute on chronic resp failure with hypoxia #. COVID 19 infection #. 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 Present is chronic respiratory failure/COPD on 3 L oxygen at baseline. Was requiring 5l/min on admission. Patient currently requiring 3 L oxygen at bedside exam. Per chart review, her oxygen requirements more stable now. s/p dexamethasone 11/21-11/30; and s/p remdesivir 11/21- 11/25 s/p doxycycline 11/22 -11/29 Currently at baseline oxygen requirement #. Supratherapeutic INR INR of 3.7 on 11/25 INR supratherapeutic today at 3.4 Continue to hold warfarin until repeat INR on 12/05/21, prior to resuming Patient needs close follow up on INR and follow up with Anticoagulation pharmacy #. Chronic medical conditions: History of CVA, embolic; anxiety/depression For history of CVA, embolic. on warfarin. For patient anxiety and depression, continue home medication including buspirone, fluoxetine and as needed lorazepam Resume other home meds as appropriate. Pt wanted psychiatry evaluation while in hospital: buspar increased 15 mg in AM 10 mg in afternoon and evening; consider increasing prozac in future and mirtazirpine was discontinued #. Urinary tract infection Patient complains of pain/burning while passing urine -- seems improving but can't exactly tell as patient will say yes to any questions asked. She is chronically incontinent of urine. 11/24 urine culture positive for Proteus mirabilis Completed antibiotics with ceftriaxone inpatient Total Time Total Time Spent Total Time Spent (In Minutes): 40 Total Time Includes: Examination of the Patient, Discharge Planning and Medication Reconciliation Discharge Plan Discharge Items Patient Disposition: Transfer Inpatient Rehab Fac Reason For Visit: Shortness of breath Discharge Diagnosis: Acute on chronic hypoxic respiratory failure COVID-19 infection COPD exacerbation Supratherapeutic INR Urinary tract infection Anxiety Activity: As commented below Activity Comment: As recommended by physical therapist Non-emergency contact: Primary Care Provider and Psychiatrist Call non-emergency contact if: you have any medication questions and your symptoms worsen Follow-up/Referrals: Roger Alexandar MD [Primary Care Provider] - Diet: Heart Healthy Ambulatory Orders: Prothrombin Time INR (Routine) Timeframe: 2 Days Location: Determined by Patient Ordered By: Ashli Arriaza Attending Provider Instructions: Mrs. Kendall. You came to the hospital with shortness of breath. You were evaluated and found to have COVID-19 infection. You were treated for t his with increased oxygen requirement as well as COPD exacerbation. You required increased oxygen on admission. However, oxygen has been weaned down to your baseline. You were also treated for urinary tract infection and completed antibiotics Your symptoms improved. You are being discharged to [facility] for rehab. Please ensure follow-up with your primary doctors. Your INR is elevated today at 3.4. Please continue to hold warfarin until recheck INR. Can recheck INR on 12/05/21 at rehab before determining resumption of INR. Please ensure follow up with anticoagulation clinic on discharge from rehab. Your buspirone was increased to 15mg in the morning and then 10mg in the afternoon and night. Your remeron was discontinued per psychiatrist recommendations. Please ensure follow up with Psychiatry for continued management of your anxiety It was a pleasure taking care of you. Pending Studies at Discharge: No Stand-Alone Forms: My [facility] Skilled Items Patient informed of condition?: Yes DNR: No Discharge Level of Care: Acute rehab Communicable Disease: No Discharge Prognosis: Stable Lines: None Urinary Catheter: No Medications and DC Order Prescriptions: New buspirone 15 mg Tablet 15 mg PO QAM Qty: 30 RF: 0 buspirone 5 mg Tablet 10 mg PO BID@1400,2100 Qty: 60 RF: 0 Continued cholecalciferol (vitamin D3) 25 mcg (1,000 unit) capsule 25 mcg PO HS RF: 0 isosorbide mononitrate 30 mg Tablet Extended Release 24 Hr 30 mg PO QAM Qty: 0 RF: 0 trazodone 150 mg tablet 150 mg PO HS RF: 0 nystatin [Nyamyc] 100,000 unit/gram powder 1 applic TOPICAL BID RF: 0 fluoxetine 20 mg capsule 20 mg PO QAM RF: 0 Anoro Ellipta 62.5-25 mcg/actuation blister with device 1 inh INHALATION DAILY RF: 0 warfarin 2.5 mg tablet 7.5 mg PO 5XWK Qty: 0 RF: 0 warfarin 5 mg tablet 5 mg PO 2XWK Qty: 0 RF: 0 lorazepam 0.5 mg tablet 0.5 mg PO TID PRN (Reason: Anxiety) RF: 0 cholecalciferol (vitamin D3) 1,250 mcg (50,000 unit) capsule 1,250 mcg PO WK RF: 0 tramadol 100 mg tablet 100 mg PO Q8 PRN (Reason: Pain) RF: 0 Discontinued mirtazapine 7.5 mg tablet 7.5 mg PO HS RF: 0 buspirone 10 mg tablet 10 mg PO TID Qty: 0 RF: 0 Discharge Orders: Discharge Order (Routine); Ordered 12/03/21 Ordered By: Ashli Bravo/Other Patient Handouts: COVID-19 Make Face Mask, 2019-nCoV, COVID-19 Home Care Admission Data Admit Date/Time: 11/22/21 01:12 Attending Provider: Ashli Aguilar I. Admit Provider: aMged Slade Primary Care Provider: Roger Alexandra Other Providers: [facility] ; Maged Slade ; Shaye Sylvester ; Ely Romano ; Sakina Cesar ; Alonso Castillo ; Johanna Baker ; Cherie Darnell
[2021-12-03] MEDS: busPIRone 5 MG TAB PO SCH (13:59)
== END 2021-12-03 14:17 | DRG 177 ==
LOC: ED 19:14 → SUATTDRO 11-22 01:12 → EDINP 11-22 01:12 → 2S 11-22 01:20
DX: R32 Unspecified urinary incontinence; N39.0 Urinary tract infection, site not specified; S50.821A Blister (nonthermal) of right forearm, initial encounter; Z79.01 Long term (current) use of anticoagulants; F43.10 Post-traumatic stress disorder, unspecified; Z82.5 Family history of asthma and other chronic lower respiratory diseases; Z87.891 Personal history of nicotine dependence; E87.6 Hypokalemia; F11.21 Opioid dependence, in remission; I50.30 Unspecified diastolic (congestive) heart failure; J96.21 Acute and chronic respiratory failure with hypoxia; F32.A Depression, unspecified; Z81.8 Family history of other mental and behavioral disorders; Z88.6 Allergy status to analgesic agent; I48.0 Paroxysmal atrial fibrillation; J44.1 Chronic obstructive pulmonary disease with (acute) exacerbation; F43.21 Adjustment disorder with depressed mood; Z79.899 Other long term (current) drug therapy; Z99.81 Dependence on supplemental oxygen; Z68.42 Body mass index [BMI] 45.0-49.9, adult; Z81.1 Family history of alcohol abuse and dependence; M16.12 Unilateral primary osteoarthritis, left hip; B96.4 Proteus (mirabilis) (morganii) as the cause of diseases classified elsewhere; E66.01 Morbid (severe) obesity due to excess calories; U07.1 COVID-19; X58.XXXA Exposure to other specified factors, initial encounter; R79.1 Abnormal coagulation profile; F41.1 Generalized anxiety disorder; J44.0 Chronic obstructive pulmonary disease with (acute) lower respiratory infection; Z86.73 Personal history of transient ischemic attack (TIA), and cerebral infarction without residual deficits; G89.29 Other chronic pain

== ENCOUNTER 2021-12-26 17:25 | Inpatient (IN) ==
--- NOTE | 2021-12-26 19:33 | XRay Report ---
XR chest 1V portable CLINICAL HISTORY: SOB TECHNIQUE: Single frontal radiograph of the chest was obtained. Comparison: Comparison is made to chest one view 11/21/2021 FINDINGS: No lines and tubes are seen. The cardiomediastinal silhouette is normal. The lungs are clear. No evid ence of pleural effusion or pneumothorax. IMPRESSION: No acute chest disease. ACT 112: Negative or not required by law. Electronically signed by: Joesph Hoyt M.D. 12/26/2021 7:32 PM
[2021-12-26 19:44] LABS: Basophils # (auto) 0.02 K/uL (0-0.2); Basophils % (auto) 0.2 %; Eosinophils # (auto) 0.07 K/uL (0-0.5); Eosinophils % (auto) 0.9 %; Hematocrit (blood only) 38.8 % (37-47); Hemoglobin 12.1 g/dL (12.0-16.0); Immature Granulocytes # (auto) 0.02 K/uL (0.00-0.02); Immature Granulocytes % (auto) 0.2 %; Mean Corpuscular Hemoglobin 29.8 pg (25-34); Mean Corpuscular Hgb Conc 31.2 g/dL (32-36); Mean Corpuscular Volume 95.6 fL (80-100); Mean Platelet Volume 8.3 fL (7.4-10.4); Monocytes % (auto) 7.5 %; Neutrophils % (auto) 56.2 %; Platelet Count 529 K/uL (130-400); RDW Standard Deviation 60.6 fL (36.4-46.3); Red Blood Count 4.06 M/uL (4.2-5.4); White Blood Count 8.01 K/uL (4.8-10.8)
[2021-12-26 20:10] LABS: Alanine Aminotransferase 10 U/L (7-52); Albumin Globulin Ratio 1.2 (0.9-2); Albumin Level 3.8 gm/dl (3.4-5.0); Alkaline Phosphatase 72 U/L (34-104); Anion Gap 7 (3-11); BUN Creatinine Ratio 17.1 (10-20); Bilirubin,Total 0.4 mg/dl (0.2-1.0); Blood Urea Nitrogen 12 mg/dl (6-23); Calcium 8.9 mg/dl (8.5-10.1); Carbon Dioxide 28 mmol/L (21-32); Chloride 102 mmol/L (98-107); Est GFR (African American) 108.4 ml/min; Est GFR (Non-African American) 93.5 ml/min; Globulin 3.1 gm/dl (2.5-4.0); Glucose 82 mg/dl (70-99(Fasting)); Sodium 137 mmol/L (136-145); Total Protein 6.9 gm/dl (6.0-8.3)
[2021-12-26] MEDS ORDERED: dexAMETHasone**PF** 10 MG/ML VIAL IV ONE (20:33)
[2021-12-26] MEDS ORDERED: ALBUT/IPRATROP 3MG/0.5MG NEB 3 ML VIAL NEB ONE (20:33)
--- NOTE | 2021-12-26 20:35 | Emergency Department Note ---
Impression & Plan Acute exacerbation of chronic obstructive pulmonary disease, Lab test positive for detection of COVID-19 virus ED Provider Note Name: YAZAN MCKEON Age: 61 Sex: F Arrives Via: Walk-In Informant: Patient ED Provider: Héctor Green MD Chief Complaint: illness Impression: As per impressions above Medical Decision Makin-year-old female with extensive past medical history including COPD, CVA, PAF, anxiety/depression, obesity who was hospitalized 6 weeks ago for COVID-19. She arrives for worsening shortness of breath and weakness over the last day or so. On examination she has diffuse wheezing and is quite short of breath though is not significantly hypoxic on her normal nasal cannula O2. She was apparently seen in the clinic today and was advised to come to the ER for further evaluation. Given patient's examination she was given an hour-long nebulizer along with IV steroids. This resulted in only minimal improvement in her breathing and she still is having quite junky breath sounds. She had a chest x- ray which is nonspecific and labs which are unremarkable other than a positive Covid test it is difficult to know whether this is due to a reinfection of Covid or whether it is still positive from her previous infection. I do not see any clear indication for antibiotics at this point. Given the continued poor respiratory exam I did feel that hospitalization was reasonable and hospitalist was consulted for further management. Patient was comfortable with this plan. Patient does note extensive different pains and aches and thus was given her typical tramadol after stating she had already had Tylenol today. Prior Medical Record and Triage/Nursing Notes reviewed by Me Additional history obtained from chart Differentials:Reactive airway disease, pneumonia, pneumothorax, COPD, CHF, inf ections, cardiac ischemia, pulmonary embolism, musculoskeletal, gastrointestinal, as well as other pathologies. Vital Signs: reviewed and remarkable for no significant abnormalities Interventions: duoneb 1 hr, tramadol po, decadron 10mg iv Labs:Reviewed and remarkable for no significant abnormalities Imaging:See Below EKG:Per My Interpretation: Indication shob: NSR 96 bpm, qtc 444. No Ectopy. No Ischemia. Compared to EKG 11/27/21, no significant changes. Cardiac/Tele Monitoring: Cardiac Monitoring: An Order was placed for continuous cardiac monitoring. The monitor shows a rate of 90 with a normal sinus rhythm. Consults:Dr Jiang Hospitalist Plan: Disposition:Hospitalization. Condition: Good History of Present Illness:61-year-old female arrives for evaluation of illness. Patient notes for the last 2 to 3 days she has been having worsening weakness. It is associated with shortness of breath, cough, chest tightness, weakness, fatigue, burning with urination. She also notes that she has a diffuse headache and has not had her tramadol or Tylenol in the last few hours. She notes she just does not feel right either. She regularly uses 3 L for her chronic COPD but is increased to 4 L the last day or so. She states she is whee zing loudly and usually she can hear her wheezing. She did have Covid about 6 weeks ago and was treated in the hospital with steroids at that time. She notes she did feel a lot better over the last few weeks until last few days. She denies any fevers, chills, chest pain, syncope, abdominal pain, back pain, leg swelling, rashes, other symptoms. She had no medications prior to arrival. Her Tylenol when she got to the waiting room. Nothing makes symptoms better and any exertion makes symptoms worse. She has been on no recent antibiotics. She did have steroids at the beginning of November when she had COPD. ROS: See above HPI for pertinent positives & negatives. A total of 10 systems reviewed and were otherwise negative. Past Medical History:See Below Past Surgical History:See Below Family History:See Below Social History:See Below Home Medications:See Below Allergies:See Below Vitals:Blood Pressure: 126/79, Pulse 99, RR 20, T 36.6C, O2 94% on 4L NC Physical Exam: GENERAL: Patient is chronically unwell, uncomfortable appearing and in mild distress. EYES: No scleral icterus, unremarkable pupils. ENT: Mucous membranes moist, no nasal congestion. NECK: No masses appreciated, nomeningismus, trachea is midline. RESPIRATORY: Diffuse insp/exp wheezing, dyspnea, moderate SOB CARDIOVASCULAR: Regular rate and rhythm.No murmurs, rubs, gallops appreciated. GASTROINTESTINAL: Abdomen soft, non-tender, no peritonitis.Bowel sounds pos itive.No masses appreciated. BACK: No midline tenderness, no CVA tenderness EXTREMITIES: Normal motion all extremities, no cyanosis, no edema. NEUROLOGIC: Alert and oriented, no acute motor or sensory deficits, no focal weakness, cranial nerves grossly intact. SKIN: No rash, no jaundice, no diaphoresis. PSYCH: Appropriate GCS: 15 ED Course: Times/Reassessments: Patient does appear improved with nebulizer though has continued diffuse loud wheezing and respiratory distress requiring hospitalization Héctor Green MD Past Med/Surg History Medical History (Updated 12/27/21 @ 01:24 by Héctor Green MD) Anxiety and depression Atrial fibrillation Atypical chest pain Cerebrovascular disease Chronic pain on daily narcotics Complicated bereavement History of stroke "embolic stroke, underlying PFO" Morbid obesity PAF (paroxysmal atrial fibrillation) Submucosal lesion of stomach Noted on EGD 11/06/20 Supratherapeutic INR Surgical History Status post cholecystectomy Status post hysterectomy Family History Other Heart disease Social History Smoking Status: Former smoker Tobacco Type: Cigarettes Second Hand Exposure: No; Hx Alcohol Use: No Hx Substance Use: No Preferred Language: Amharic Communication Ability: Effective Gift Shop Manager Required: No Beliefs That Will Affect Care: None marital status: / Current Living Situation: Alone Current Living Situation Comment: in march Feels Safe at Home: Yes Assistive Devices: Oxygen - Continuous Allergies Allergies Allergy/AdvReac Type Severity Reaction Status Date / Time aspirin Allergy Unknown TAKES Verified 12/26/21 20:49 COUMADIN salicylates AdvReac Unknown ?DUE TO Verified 12/26/21 20:49 COUMADIN? Home Meds Home Medications Medication Instructions Recorded Confirmed cholecalciferol (vitamin D3) 1,250 1,250 mcg PO WK 05/20/21 12/26/21 mcg (50,000 unit) capsule lorazepam 0.5 mg tablet 0.5 mg PO TID PRN 05/20/21 12/26/21 tramadol 100 mg tablet 100 mg PO Q8 PRN 05/20/21 12/26/21 cholecalciferol (vitamin D3) 25 25 mcg PO HS 06/13/21 12/26/21 mcg (1,000 unit) capsule fluoxetine 20 mg capsule 20 mg PO QAM 11/21/21 12/26/21 nystatin 100,000 unit/gram topical 1 applic TOPICAL BID 11/21/21 12/26/21 powder (Nyamy) trazodone 150 mg tablet 150 mg PO HS 11/21/21 12/26/21 budesonide-formoterol HFA 80 2 puff INHALATION BID 12/26/21 12/26/21 mcg-4.5 mcg/actuation aerosol inhaler (Symbicort) mirtazapine 7.5 mg tablet 7.5 mg PO HS 12/26/21 12/26/21 warfarin 5 mg tablet 5 mg PO QPM 12/26/21 12/26/21 Previous Rx's Medication Instructions Recorded isosorbide mononitrate 30 mg 30 mg PO QAM #0 tab 09/22/20 tablet,extended release 24 hr buspirone 15 mg tablet 15 mg PO QAM #30 tab 12/03/21 buspirone 5 mg tablet 10 mg PO BID@1400,2100 #60 tab 12/03/21 Results & Data (ED) Vital Signs Vital Signs - 24 hr 12/26/21 17:31 12/26/21 20:30 12/26/21 20:31 Temperature 36.6 C Temperature Source Oral Pulse Rate 99 H 96 H Pulse Rate [Apical] Pulse Rate from SpO2 Sensor 95 H Pulse Rhythm Regular Pulse Strength Normal Respiratory Rate 20 19 Respiratory Effort / Characteristics Non-Labored Spontaneous Respiratory Depth Normal Respiratory Pattern Regular Blood Pressure 126/79 129/90 Blood Pressure Mean 94 103 Blood Pressure Position Sitting Pulse Oximetry 94 93 Oxygen Delivery Method Nasal Cannula Oxygen Flow Rate 3 Sepsis Recent Fever Within 48 Hours No Sepsis New/Unexplained Change in Mental Status No Sepsis Action Taken by Nursing No Action Required 12/26/21 21:00 12/26/21 21:05 12/26/21 21:30 Temperature Temperature Source Pulse Rate 81 79 Pulse Rate [Apical] 89 Pulse Rate from SpO2 Sensor 83 79 Pulse Rhythm Pulse Strength Respiratory Rate 16 20 18 Respiratory Effort / Characteristics Non-Labored Spontaneous Respiratory Depth Respiratory Pattern Blood Pressure 108/74 Blood Pressure Mean 85 Blood Pressure Position Pulse Oximetry 97 96 98 Oxygen Delivery Method Nasal Cannula Oxygen Flow Rate 4 Sepsis Recent Fever Within 48 Hours Sepsis New/Unexplained Change in Mental Status Sepsis Action Taken by Nursing 12/26/21 22:00 12/26/21 22:30 Temperature Temperature Source Pulse Rate 81 80 Pulse Rate [Apical] Pulse Rate from SpO2 Sensor 80 81 Pulse Rhythm Pulse Strength Respiratory Rate 17 19 Respiratory Effort / Characteristics Respiratory Depth Respiratory Pattern Blood Pressure Blood Pressure Mean Blood Pressure Position Pulse Oximetry 99 98 Oxygen Delivery Method Oxygen Flow Rate Sepsis Recent Fever Within 48 Hours Sepsis New/Unexplained Change in Mental Status Sepsis Action Taken by Nursing Laboratory Data Result diagrams: 12/26/21 19:20 12/26/21 20:25 Lab Results 12/26/21 12/26/21 12/26/21 Range/Units 19:20 19:20 20:25 WBC 8.01 (4.8-10.8) K/uL RBC 4.06 L (4.2-5.4) M/uL Hgb 12.1 (12.0-16.0) g/dL Hct 38.8 (37-47) % MCV 95.6 (80-100) fL MCH 29.8 (25-34) pg MCHC 31.2 L (32-36) g/dL RDW Std Deviation 60.6 H (36.4-46.3) fL RDW Coeff of Ursula 17.0 H (11.5-14.5) % Plt Count 529 H (130-400) K/uL MPV 8.3 (7.4-10.4) fL Immature Gran % (Auto) 0.2 % Neut % (Auto) 56.2 % Lymph % (Auto) 35.0 % Arthur % (Auto) 7.5 % Eos % (Auto) 0.9 % Baso % (Auto) 0.2 % Neut # (Auto) 4.50 (1.4-6.5) K/uL Lymph # (Auto) 2.80 (1.2-3.4) K/uL Arthur # (Auto) 0.60 H (0.11-0.59) K/uL Eos # (Auto) 0.07 (0-0.5) K/uL Baso # (Auto) 0.02 (0-0.2) K/uL Immature Gran # (Auto) 0.02 (0.00-0.02) K/uL PT (9.0-12.0) Seconds INR (0.9-1.1) ABG pH (7.35-7.45) ABG pCO2 (35-46) mmHg ABG pO2 (80-95) mmHg ABG HCO3 (19-24) mmol/L ABG O2 Saturation (90-95) % ABG Base Excess (-9-1.8) mEq/L [place] Test (Pos) Oxygen Given Sodium 137 (136-145) mmol/L Potassium TNP 3.9 Chloride 102 (98-107) mmol/L Carbon Dioxide 28 (21-32) mmol/L Anion Gap 7 (3-11) BUN 12 (6-23) mg/dl Creatinine 0.70 (0.6-1.2) mg/dl Est Cr Clr Drug Dosing Not Reportable Est GFR ( Amer) 108.4 ml/min Est GFR (Non-Af Amer) 93.5 ml/min BUN/Creatinine Ratio 17.1 (10-20) Glucose 82 (70-99(Fasting)) mg/dl Calcium 8.9 (8.5-10.1) mg/dl Magnesium 1.8 (1.7-2.4) mg/dl Total Bilirubin 0.4 (0.2-1.0) mg/dl AST TNP 12 L ALT 10 (7-52) U/L Alkaline Phosphatase 72 (34-104) U/L Total Protein 6.9 (6.0-8.3) gm/dl Albumin 3.8 (3.4-5.0) gm/dl Globulin 3.1 (2.5-4.0) gm/dl Albumin/Globulin Ratio 1.2 (0.9-2) Urine Color Urine Appearance (Clear) Urine pH (4.5-7.5) Ur Specific [place] (1.000-1.030) Urine Protein (Negative) Urine Glucose (UA) (Negative) Urine Ketones (Negative) Urine Blood (Negative) Urine Nitrite (Negative) Urine Bilirubin (Negative) Urine Urobilinogen (Negative) Ur Leukocyte Esterase (Negative) Urine WBC (Auto) (0-5) /hpf Urine RBC (Auto) (0-4) /hpf U Hyaline Cast (Auto) (0-5) /lpf U Epithel Cells (Auto) (0-5) /lpf Urine Bacteria (Auto) (Negative) SARS-CoV-2, RNA, NAAT (NEGATIVE) 12/26/21 12/26/21 12/26/21 Range/Units 20:25 20:26 20:54 WBC (4.8-10.8) K/uL RBC (4.2-5.4) M/uL Hgb (12.0-16.0) g/dL Hct (37-47) % MCV (80-100) fL MCH (25-34) pg MCHC (32-36) g/dL RDW Std Deviation (36.4-46.3) fL RDW Coeff of Ursula (11.5-14.5) % Plt Count (130-400) K/uL MPV (7.4-10.4) fL Immature Gran % (Auto) % Neut % (Auto) % Lymph % (Auto) % Arthur % (Auto) % Eos % (Auto) % Baso % (Auto) % Neut # (Auto) (1.4-6.5) K/uL Lymph # (Auto) (1.2-3.4) K/uL Arthur # (Auto) (0.11-0.59) K/uL Eos # (Auto) (0-0.5) K/uL Baso # (Auto) (0-0.2) K/uL Immature Gran # (Auto) (0.00-0.02) K/uL PT 10.1 (9.0-12.0) Seconds INR 1.0 (0.9-1.1) ABG pH (7.35-7.45) ABG pCO2 (35-46) mmHg ABG pO2 (80-95) mmHg ABG HCO3 (19-24) mmol/L ABG O2 Saturation (90-95) % ABG Base Excess (-9-1.8) mEq/L [place] Test (Pos) Oxygen Given Sodium (136-145) mmol/L Potassium Chloride (98-107) mmol/L Carbon Dioxide (21-32) mmol/L Anion Gap (3-11) BUN (6-23) mg/dl Creatinine (0.6-1.2) mg/dl Est Cr Clr Drug Dosing Est GFR ( Amer) ml/min Est GFR (Non-Af Amer) ml/min BUN/Creatinine Ratio (10-20) Glucose (70-99(Fasting)) mg/dl Calcium (8.5-10.1) mg/dl Magnesium Cancelled (1.7-2.4) mg/dl Total Bilirubin (0.2-1.0) mg/dl AST ALT (7-52) U/L Alkaline Phosphatase (34-104) U/L Total Protein (6.0-8.3) gm/dl Albumin (3.4-5.0) gm/dl Globulin (2.5-4.0) gm/dl Albumin/Globulin Ratio (0.9-2) Urine Color Yellow Urine Appearance Clear (Clear) Urine pH 5.0 (4.5-7.5) Ur Specific [place] 1.020 (1.000-1.030) Urine Protein Negative (Negative) Urine Glucose (UA) Negative (Negative) Urine Ketones Trace H (Negative) Urine Blood Negative (Negative) Urine Nitrite Positive A (Negative) Urine Bilirubin Negative (Negative) Urine Urobilinogen Negative (Negative) Ur Leukocyte Esterase Negative (Negative) Urine WBC (Auto) 1-5 (0-5) /hpf Urine RBC (Auto) 0-4 (0-4) /hpf U Hyaline Cast (Auto) 1-5 (0-5) /lpf U Epithel Cells (Auto) 10-20 H (0-5) /lpf Urine Bacteria (Auto) 2+ H (Negative) SARS-CoV-2, RNA, NAAT (NEGATIVE) 12/26/21 12/27/21 Range/Units Unknown 00:22 WBC (4.8-10.8) K/uL RBC (4.2-5.4) M/uL Hgb (12.0-16.0) g/dL Hct (37-47) % MCV (80-100) fL MCH (25-34) pg MCHC (32-36) g/dL RDW Std Deviation (36.4-46.3) fL RDW Coeff of Ursula (11.5-14.5) % Plt Count (130-400) K/uL MPV (7.4-10.4) fL Immature Gran % (Auto) % Neut % (Auto) % Lymph % (Auto) % Arthur % (Auto) % Eos % (Auto) % Baso % (Auto) % Neut # (Auto) (1.4-6.5) K/uL Lymph # (Auto) (1.2-3.4) K/uL Arthur # (Auto) (0.11-0.59) K/uL Eos # (Auto) (0-0.5) K/uL Baso # (Auto) (0-0.2) K/uL Immature Gran # (Auto) (0.00-0.02) K/uL PT (9.0-12.0) Seconds INR (0.9-1.1) ABG pH 7.43 (7.35-7.45) ABG pCO2 40 (35-46) mmHg ABG pO2 62 L (80-95) mmHg ABG HCO3 26 H (19-24) mmol/L ABG O2 Saturation 92.2 (90-95) % ABG Base Excess 1.5 (-9-1.8) mEq/L [place] Test Pos (Pos) Oxygen Given 4L Sodium (136-145) mmol/L Potassium Chloride (98-107) mmol/L Carbon Dioxide (21-32) mmol/L Anion Gap (3-11) BUN (6-23) mg/dl Creatinine (0.6-1.2) mg/dl Est Cr Clr Drug Dosing Est GFR ( Amer) ml/min Est GFR (Non-Af Amer) ml/min BUN/Creatinine Ratio (10-20) Glucose (70-99(Fasting)) mg/dl Calcium (8.5-10.1) mg/dl Magnesium (1.7-2.4) mg/dl Total Bilirubin (0.2-1.0) mg/dl AST ALT (7-52) U/L Alkaline Phosphatase (34-104) U/L Total Protein (6.0-8.3) gm/dl Albumin (3.4-5.0) gm/dl Globulin (2.5-4.0) gm/dl Albumin/Globulin Ratio (0.9-2) Urine Color Urine Appearance (Clear) Urine pH (4.5-7.5) Ur Specific [place] (1.000-1.030) Urine Protein (Negative) Urine Glucose (UA) (Negative) Urine Ketones (Negative) Urine Blood (Negative) Urine Nitrite (Negative) Urine Bilirubin (Negative) Urine Urobilinogen (Negative) Ur Leukocyte Esterase (Negative) Urine WBC (Auto) (0-5) /hpf Urine RBC (Auto) (0-4) /hpf U Hyaline Cast (Auto) (0-5) /lpf U Epithel Cells (Auto) (0-5) /lpf Urine Bacteria (Auto) (Negative) SARS-CoV-2, RNA, NAAT POSITIVE A* (NEGATIVE) Administered Medications Acetaminophen (Acetaminophen 325 Mg Tab) 650 mg PO Q6H PRN PRN Reason: Fever/pain Stop: 01/25/22 23:48 Last Admin: 12/27/21 00:14 Dose: 650 mg Documented by: [id number] Remdesivir 200 mg/ Sodium (Chloride) 250 mls @ 125 mls/hr IV ONE STA; Protocol Stop: 12/27/21 01:48 Last Admin: 12/27/21 01:16 Dose: 125 mls/hr Documented by: [id number] Discontinued Medications Albuterol (Albut/Ipratrop 3mg/0.5mg Neb 3 Ml Vial) 12 ml NEB ONE ONE; Protocol Stop: 12/26/21 20:34 Last Admin: 12/26/21 21:02 Dose: 12 ml Documented by: [id number] Dexamethasone Sodium Phosphate (DexamethasonePf 10 Mg/Ml Vial) 10 mg IV NOW ONE Stop: 12/26/21 20:34 Last Admin: 12/26/21 21:32 Dose: 10 mg Documented by: [id number] Cefepime HCl (Maxipime) 2,000 mg in 20 mls @ 5 mls/min IV NOW STA; Protocol Stop: 12/26/21 23:15 Last Admin: 12/27/21 00:15 Dose: 5 mls/min Documented by: [id number] Lorazepam (Lorazepam 0.5 Mg Tab) 0.5 mg PO NOW STA Stop: 12/26/21 23:50 Last Admin: 12/27/21 00:14 Dose: 0.5 mg Documented by: [id number] Tramadol HCl (Tramadol Hcl 50 Mg Tablet) 50 mg PO NOW STA Stop: 12/26/21 21:33 Last Admin: 12/26/21 21:48 Dose: 50 mg Documented by: [id number] Imaging Data Radiologist's Impression: Chest X-Ray 12/26/21 17:35 XR chest 1V portable CLINICAL HISTORY: SOB TECHNIQUE: Single frontal radiograph of the chest was obtained. Comparison: Comparison is made to chest one view 11/21/2021 FINDINGS: No lines and tubes are seen. The cardiomediastinal silhouette is normal. The lungs are clear. No evidence of pleural effusion or pneumothorax. IMPRESSION: No acute chest disease. ACT 112: Negative or not required by law. Electronically signed by: Joesph Hoyt M.D. 12/26/2021 7:32 PM Discharge Plan Visit Data Chief Complaint: Illness Stated Complaint: SHORTNESS OF BRATH ED Provider: Héctor Green Discharge Problem: Acute exacerbation of chronic obstructive pulmonary disease, Lab test positive for detection of COVID-19 virus Forms Stand Alone Forms: My [facility] [employer] Prescriptions Prescriptions: No Action cholecalciferol (vitamin D3) 25 mcg (1,000 unit) capsule 25 mcg PO HS RF: 0 isosorbide mononitrate 30 mg Tablet Extended Release 24 Hr 30 mg PO QAM Qty: 0 RF: 0 trazodone 150 mg tablet 150 mg PO HS RF: 0 nystatin [Nyamyc] 100,000 unit/gram powder 1 applic TOPICAL BID RF: 0 fluoxetine 20 mg capsule 20 mg PO QAM RF: 0 buspirone 15 mg Tablet 15 mg PO QAM Qty: 30 RF: 0 buspirone 5 mg Tablet 10 mg PO BID@1400,2100 Qty: 60 RF: 0 budesonide-formoterol [Symbicort] 80-4.5 mcg/actuation HFA aerosol inhaler 2 puff INHALATION BID RF: 0 warfarin 5 mg tablet 5 mg PO QPM RF: 0 mirtazapine 7.5 mg tablet 7.5 mg PO HS RF: 0 lorazepam 0.5 mg tablet 0.5 mg PO TID PRN (Reason: Anxiety) RF: 0 cholecalciferol (vitamin D3) 1,250 mcg (50,000 unit) capsule 1,250 mcg PO WK RF: 0 tramadol 100 mg tablet 100 mg PO Q8 PRN (Reason: Pain) RF: 0 Referrals Referrals: Roger Alexandra MD [Primary Care Provider] -
[2021-12-26 20:58] LABS: Magnesium 1.8 mg/dl (1.7-2.4); Potassium 3.9 mmol/L (3.5-5.1)
[2021-12-26 21:07] LABS: Appearance Urine Clear (Clear); Bacteria Urine Automated 2+ (Negative); Bilirubin Urine Negative (Negative); Blood Urine Negative (Negative); Color Urine Yellow; Glucose Urine UA Negative (Negative); Ketones Urine Trace (Negative); Leukocyte Esterase Urine Negative (Negative); Nitrite Urine Positive (Negative); Protein Urine Negative (Negative); RBC Urine Automated 0-4 /hpf (0-4); Urobilinogen Urine Negative (Negative)
[2021-12-26] MEDS ORDERED: traMADol HCL 50 MG TABLET PO STA (21:32)
[2021-12-26] MEDS ORDERED: CEFEPIME 2,000 MG/20 ML VIAL IV STA (23:12)
--- NOTE | 2021-12-26 23:18 | History & Physical Report ---
Date of Service December 26, 2021 History of Present Illness Primary Care Provider: Roger Alexandra MD Medical history significant for chronic resp failure 2 to COPD on home O2, past tobacco abuse, hypertension, history of embolic CVA secondary to PFO ongoing coumadin tx, history of seizures, chronic pain syndrome, schizoaffective disorder, history of depression. Irritable bowel syndrome as per records. R" MEDICAL HISTORY: As above. SURGERIES: Cholecystectomy, hysterectomy, hernia repair. FAMILY HISTORY: Heart disease. PERSONAL AND SOCIAL HISTORY: Past history of tobacco abuse. No chronic intake of alcoholic beverages. On disability. Allergies Allergy/AdvReac Type Severity Reaction Status Date / Time aspirin Allergy Unknown TAKES Verified 12/26/21 20:49 COUMADIN salicylates AdvReac Unknown ?DUE TO Verified 12/26/21 20:49 COUMADIN? Home Medications Medication Instructions Recorded Confirmed Type isosorbide mononitrate 30 mg 30 mg PO QAM #0 tab 09/22/20 12/26/21 Rx tablet,extended release 24 hr cholecalciferol (vitamin D3) 1,250 1,250 mcg PO WK 05/20/21 12/26/21 History mcg (50,000 unit) capsule lorazepam 0.5 mg tablet 0.5 mg PO TID PRN 05/20/21 12/26/21 History tramadol 100 mg tablet 100 mg PO Q8 PRN 05/20/21 12/26/21 History cholecalciferol (vitamin D3) 25 25 mcg PO HS 06/13/21 12/26/21 History mcg (1,000 unit) capsule fluoxetine 20 mg capsule 20 mg PO QAM 11/21/21 12/26/21 History nystatin 100,000 unit/gram topical 1 applic TOPICAL BID 11/21/21 12/26/21 [place] [place]one 150 mg tablet 150 mg PO HS 11/21/21 12/26/21 History buspirone 15 mg tablet 15 mg PO QAM #30 tab 12/03/21 12/26/21 Rx buspirone 5 mg tablet 10 mg PO BID@1400,2100 #60 tab 12/03/21 12/26/21 Rx budesonide-formoterol HFA 80 2 puff INHALATION BID 12/26/21 12/26/21 History mcg-4.5 mcg/actuation aerosol inhaler (Symbicort) mirtazapine 7.5 mg tablet 7.5 mg PO HS 12/26/21 12/26/21 History warfarin 5 mg tablet 5 mg PO QPM 12/26/21 12/26/21 History Past Med/Surg History Medical History (Updated 12/01/21 @ 18:18 by Johanna Baker PA-C) Anxiety and depression Atrial fibrillation Atypical chest pain Cerebrovascular disease Chronic pain on daily narcotics Complicated bereavement History of stroke "embolic stroke, underlying PFO" Morbid obesity PAF (paroxysmal atrial fibrillation) Submucosal lesion of stomach Noted on EGD 11/06/20 Supratherapeutic INR Surgical History Status post cholecystectomy Status post hysterectomy Family History Other Heart disease Social History Smoking Status: Former smoker Tobacco Type: Cigarettes Second Hand Exposure: No; Hx Alcohol Use: No Hx Substance Use: No Preferred Language: Bulgarian Communication Ability: Effective Project 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
[2021-12-26 23:41] LABS: Prothrombin Time 10.1 Seconds (9.0-12.0)
[2021-12-26] MEDS ORDERED: LORazepam 0.5 MG TAB PO STA (23:49)
[2021-12-26] MEDS ORDERED: REMDESIVIR 200 MG in SODIUM CHLORIDE 0.9% 210 ML IV STA (23:49)
[2021-12-27] MEDS: ACETAMINOPHEN 325 MG TAB PO PRN ×2 (00:14→20:02)
[2021-12-27 00:34] LABS: Base Excess ABG 1.5 mEq/L (-9-1.8); HCO3 ABG 26 mmol/L (19-24); Oxygen Saturation ABG 92.2 % (90-95); PCO2 ABG 40 mmHg (35-46); PO2 ABG 62 mmHg (80-95); pH ABG 7.43 (7.35-7.45)
[2021-12-27 00:37] LABS: Allen Test Pos (Pos)
--- NOTE | 2021-12-27 01:05 | History & Physical Report ---
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 Urine CS, Cefepime Judicious narcotic use given addiction history DVT prophylaxis Coumadin INR goal between 2 and 3 Full code Text document was generated using [employer] voice recognition software. It may contain grammatical or spelling errors. Kindly contact undersigned for clarification of any documentation item in question. History of Present Illness Chief Complaint: Shortness of breath Primary Care Provider: Roger Alexandra MD History obtained from patient and records. 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 Last confinement last month for COPD exacerbation secondary to COVID-19 infection status post Decadron and remdesivir Rx. Patient also received ceftriaxone for Proteus UTI. COVID-19 test was negative prior to discharge to rehab facility. Patient discharged home last week. Few days ago, patient noted blinding headache symptoms. Dry cough symptoms with worsening shortness of breath. Pleuritic chest pain with coughing. Achy abdominal pain with dysuria. Not sure about recent sick contacts given recent rehab stay. Patient has not received COVID-19 vaccination. Patient seen at PCPs office yesterday. Diffuse wheezing on exam. Patient directed to ER for evaluation. Albuterol and Decadron given at the ER for COPD exacerbation. MEDICAL HISTORY: As above. SURGERIES: Cholecystectomy, hysterectomy, hernia repair. FAMILY HISTORY: Heart disease. Schizophrenia 6PERSONAL AND SOCIAL HISTORY: Past tobacco abuse. No chronic intake of alcoholic beverages. On disability. Allergies Allergy/AdvReac Type Severity Reaction Status Date / Time aspirin Allergy Unknown TAKES Verified 12/26/21 20:49 COUMADIN salicylates AdvReac Unknown ?DUE TO Verified 12/26/21 20:49 COUMADIN? Home Medications Medication Instructions Recorded Confirmed Type isosorbide mononitrate 30 mg 30 mg PO QAM #0 tab 09/22/20 12/26/21 Rx tablet,extended release 24 hr cholecalciferol (vitamin D3) 1,250 1,250 mcg PO WK 05/20/21 12/26/21 History mcg (50,000 unit) capsule lorazepam 0.5 mg tablet 0.5 mg PO TID PRN 05/20/21 12/26/21 History tramadol 100 mg tablet 100 mg PO Q8 PRN 05/20/21 12/26/21 History cholecalciferol (vitamin D3) 25 25 mcg PO HS 06/13/21 12/26/21 History mcg (1,000 unit) capsule fluoxetine 20 mg capsule 20 mg PO QAM 11/21/21 12/26/21 History nystatin 100,000 unit/gram topical 1 applic TOPICAL BID 11/21/21 12/26/21 History powder ([facility]) trazodone 150 mg tablet 150 mg PO HS 11/21/21 12/26/21 History buspirone 15 mg tablet 15 mg PO QAM #30 tab 12/03/21 12/26/21 Rx buspirone 5 mg tablet 10 mg PO BID@1400,2100 #60 tab 12/03/21 12/26/21 Rx budesonide-formoterol HFA 80 2 puff INHALATION BID 12/26/21 12/26/21 History mcg-4.5 mcg/actuation aerosol inhaler (Symbicort) mirtazapine 7.5 mg tablet 7.5 mg PO HS 12/26/21 12/26/21 History warfarin 5 mg tablet 5 mg PO QPM 12/26/21 12/26/21 History Past Med/Surg History Medical History (Updated 12/27/21 @ 01:24 by Héctor Green MD) Anxiety and depression Atrial fibrillation Atypical chest pain Cerebrovascular disease Chronic pain on daily narcotics Complicated bereavement History of stroke "embolic stroke, underlying PFO" Morbid obesity PAF (paroxysmal atrial fibrillation) Submucosal lesion of stomach Noted on EGD 11/06/20 Supratherapeutic INR Surgical History Status post cholecystectomy Status post hysterectomy Family History Other Heart disease Social History Smoking Status: Former smoker Tobacco Type: Cigarettes Second Hand Exposure: No; Hx Alcohol Use: No Hx Substance Use: No Preferred Language: Mosotho Communication Ability: Effective Highway Inspector Required: No Beliefs That Will Affect Care: None marital status: / Current Living Situation: Alone Current Living Situation Comment: in march Feels Safe at Home: Yes Assistive Devices: Oxygen - Continuous Review of Systems Review of Systems: As per HPI, all 10 systems reviewed, all other ROS negative Physical Exam Physical Exam: GENERAL: uncomfortable, anxious, obese, minimal respiratory distress SKIN: Normal color, warm HEENT: [place] palpebral conjunctivae, no ptosis, dry buccal mucosa, nasal cannula in place NECK : Supple, no tenderness CHEST : Decreased breath sounds, diffuse expiratory wheezes, no tenderness HEART : RRR, no obvious murmurs ABDOMEN: Some distention, minimal hypogastric tenderness EXTREMITIES : Minimal LE swelling, no LE tenderness, no other conspicuous deformities noted NEUROLOGIC : Coherent, no facial asymmetry, no other gross focality Results & Data Results & Data ([facility]) Vital Signs (Past 12 Hours) Vital Signs Temp Pulse Pulse Resp BP Pulse Ox 12/26/21 22:30 80 19 98 12/26/21 22:00 81 17 99 12/26/21 21:30 79 18 98 12/26/21 21:05 89 20 96 12/26/21 21:00 81 16 108/74 97 12/26/21 20:31 96 H 19 93 12/26/21 20:30 129/90 12/26/21 17:31 36.6 C 99 H 20 126/79 94 Laboratory Results Laboratory Results WBC 8.01 K/uL (4.8-10.8) 12/26/21 19:20 RBC 4.06 M/uL (4.2-5.4) L 12/26/21 19:20 Hgb 12.1 g/dL (12.0-16.0) 12/26/21 19:20 Hct 38.8 % (37-47) 12/26/21 19:20 MCV 95.6 fL (80-100) 12/26/21 19:20 MCH 29.8 pg (25-34) 12/26/21 19:20 MCHC 31.2 g/dL (32-36) L 12/26/21 19: RDW Std Deviation 60.6 fL (36.4-46.3) H 12/26/21 19:20 RDW Coeff of [place]ula 17.0 % (11.5-14.5) H 12/26/21 19:20 Plt Count 529 K/uL (130-400) H 12/26/21 19:20 MPV 8.3 fL (7.4-10.4) 12/26/21 19:20 Immature Gran % (Auto) 0.2 % 12/26/21 19:20 Neut % (Auto) 56.2 % 12/26/21 19:20 Lymph % (Auto) 35.0 % 12/26/21 19:20 [place] % (Auto) 7.5 % 12/26/21 19:20 Eos % (Auto) 0.9 % 12/26/21 19:20 Baso % (Auto) 0.2 % 12/26/21 19:20 Neut # (Auto) 4.50 K/uL (1.4-6.5) 12/26/21 19:20 Lymph # (Auto) 2.80 K/uL (1.2-3.4) 12/26/21 19:20 [place] # (Auto) 0.60 K/uL (0.11-0.59) H 12/26/21 19:20 Eos # (Auto) 0.07 K/uL (0-0.5) 12/26/21 19:20 Baso # (Auto) 0.02 K/uL (0-0.2) 12/26/21 19:20 Immature Gran # (Auto) 0.02 K/uL (0.00-0.02) 12/26/21 19:20 PT 10.1 Seconds (9.0-12.0) 12/26/21 20:26 INR 1.0 (0.9-1.1) 12/26/21 20:26 ABG pH 7.43 (7.35-7.45) 12/27/21 00:22 ABG pCO2 40 mmHg (35-46) 12/27/21 00:22 ABG pO2 62 mmHg (80-95) L 12/27/21 00:22 ABG HCO3 26 mmol/L (19-24) H 12/27/21 00:22 ABG O2 Saturation 92.2 % (90-95) 12/27/21 00:22 ABG Base Excess 1.5 mEq/L (-9-1.8) 12/27/21 00:22 [place] Test Pos (Pos) 12/27/21 00:22 Oxygen Given 4L 12/27/21 00:22 Sodium 137 mmol/L (136-145) 12/26/21 19:20 Potassium 3.9 mmol/L (3.5-5.1) 12/26/21 20:25 Chloride 102 mmol/L (98-107) 12/26/21 19:20 Carbon Dioxide 28 mmol/L (21-32) 12/26/21 19:20 Anion Gap 7 (3-11) 12/26/21 19:20 BUN 12 mg/dl (6-23) 12/26/21 19:20 Creatinine 0.70 mg/dl (0.6-1.2) 12/26/21 19:20 Est Cr Clr Drug Dosing Not Reportable 12/26/21 19:20 Est GFR ( Amer) 108.4 ml/min 12/26/21 19:20 Est GFR (Non-Af Amer) 93.5 ml/min 12/26/21 19:20 BUN/Creatinine Ratio 17.1 (10-20) 12/26/21 19:20 Glucose 82 mg/dl (70-99(Fasting)) 12/26/21 19:20 Calcium 8.9 mg/dl (8.5-10.1) 12/26/21 19:20 Magnesium 1.8 mg/dl (1.7-2.4) 12/26/21 20:25 Magnesium Cancelled 12/26/21 20:25 Total Bilirubin 0.4 mg/dl (0.2-1.0) 12/26/21 19:20 AST 12 U/L (13-39) L 12/26/21 20:25 ALT 10 U/L (7-52) 12/26/21 19:20 Alkaline Phosphatase 72 U/L (34-104) 12/26/21 19:20 Total Protein 6.9 gm/dl (6.0-8.3) 12/26/21 19:20 Albumin 3.8 gm/dl (3.4-5.0) 12/26/21 19:20 Globulin 3.1 gm/dl (2.5-4.0) 12/26/21 19:20 Albumin/Globulin Ratio 1.2 (0.9-2) 12/26/21 19:20 Urine Color Yellow 12/26/21 20:54 Urine Appearance Clear (Clear) 12/26/21 20:54 Urine pH 5.0 (4.5-7.5) 12/26/21 20:54 Ur Specific [place] 1.020 (1.000-1.030) 12/26/21 20:54 Urine Protein Negative (Negative) 12/26/21 20:54 Urine Glucose (UA) Negative (Negative) 12/26/21 20:54 Urine Ketones Trace (Negative) H 12/26/21 20:54 Urine Blood Negative (Negative) 12/26/21 20:54 Urine Nitrite Positive (Negative) A 12/26/21 20:54 Urine Bilirubin Negative (Negative) 12/26/21 20:54 Urine Urobilinogen Negative (Negative) 12/26/21 20:54 Ur Leukocyte Esterase Negative (Negative) 12/26/21 20:54 Urine WBC (Auto) 1-5 /hpf (0-5) 12/26/21 20:54 Urine RBC (Auto) 0-4 /hpf (0-4) 12/26/21 20:54 U Hyaline Cast (Auto) 1-5 /lpf (0-5) 12/26/21 20:54 U Epithel Cells (Auto) 10-20 /lpf (0-5) H 12/26/21 20:54 Urine Bacteria (Auto) 2+ (Negative) H 12/26/21 20:54 SARS-CoV-2, RNA, NAAT POSITIVE (NEGATIVE) A* 12/26/21 Unknown Impressions Chest X-Ray 12/26/21 17:35 XR chest 1V portable CLINICAL HISTORY: SOB TECHNIQUE: Single frontal radiograph of the chest was obtained. Comparison: Comparison is made to chest one view 11/21/2021 FINDINGS: No lines and tubes are seen. The cardiomediastinal silhouette is normal. The lungs are clear. No evidence of pleural effusion or pneumothorax. IMPRESSION: No acute chest disease. ACT 112: Negative or not required by law. Electronically signed by: Joesph Hoyt M.D. 12/26/2021 7:[address] head initial read: No ICH, mass effect or edema. No evidence of acute cortical stroke. Periventricular small vessel ischemic change. Mild generalized brain atrophy. Encephalomalacia within the left frontoparietal lobe, likelysequela of old i nfarct. Visualized sinuses and mastoid air cells are clear. CT abdomen pelvis initial read: Examis limited due to decreased resolution related to large bodyhabitus and patient's arms. Normal cardiac size. Mild posterior dependent atelectasis. Minimal bilateral pleural thickening. Status post cholecystectomyotherwise unremarkable biliarysystem. Normal liver, spleen and pancreas. Normal right adre nal gland. Nodule within the left adrenal gland measuring 1.8 x 1.2 cmwith Hounsfield units consistent with adenoma. Mild bilateral perinephric stranding otherwise normal kidneys. No hydronephrosis. Atherosclerotic disease of aortawith no aneurysm. Decompressed stomach with no hiatal hernia. Nonspecific small bowel. Normal appendix. Decompressed descending colon with mild distention of the transverse portion and ascending colon. Remainder of the colon is unremarkable. Normal urinarybladder. Status post hysterectomy. Degenerative disease of the spine with osteopenia. EKG as per my interpretation: Rate 95, NSR, LAD, LAFB, T wave abnormality septal leads
[2021-12-27] MEDS: guaiFENesin 600 MG TABCR PO SCH ×3 (01:50→21:06)
[2021-12-27] MEDS: MAGNESIUM SULFATE / D5W 1 GM/100 ML BAG IV SCH ×2 (01:57→02:36)
[2021-12-27] MEDS ORDERED: LACTATED RINGER'S 1,000 ML IV ONE (02:06)
[2021-12-27] MEDS ORDERED: PROMETHAZINE HCL 12.5 MG in SODIUM CHLORIDE 0.9% 50 ML IV PRN (04:47)
[2021-12-27] MEDS: traMADol HCL 50 MG TABLET PO PRN ×3 (06:12→18:20)
[2021-12-27] MEDS: LORazepam 0.5 MG TAB PO PRN ×2 (06:13→18:20)
--- NOTE | 2021-12-27 06:40 | CT Scan Report ---
HEAD CT NONCONTRAST CT DOSE: 537.48 mGy.cm HISTORY: Headache. TECHNIQUE: Multiaxial CT images of the head were performed without the use of intravenous contrast. A utomated exposure control was utilized for this study. A dose lowering technique was utilized adheri ng to the principles of ALARA. Comparison: Head CT 11/23/2021. Findings: The paranasal sinuses and mastoid air cells are clear. The calvarium and skull base are int act. There is no mass, hematoma, midline shift, acute infarct. White matter hypodensity is nonspecifi c but suggestive of microvascular ischemic change. The ventricles and sulci demonstrate mild age-rela elyssa involutional changes. Old bilateral MCA territory infarcts are again noted. Impression: No significant change compared to the prior study. No acute intracranial abnormality. ACT 112: Negative or not required by law. Electronically signed by: Otto Hendrickson M.D. 12/27/2021 6:39 AM
--- NOTE | 2021-12-27 07:27 | CT Scan Report ---
ABDOMEN AND PELVIS CT WITHOUT CONTRAST CT DOSE: 2065.68 mGy.cm HISTORY: Generalized abdominal pain. Weakness. TECHNIQUE: Multiaxial CT images of the abdomen and pelvis were performed without contrast. A dose lo wering technique was utilized adhering to the principles of ALARA. COMPARISON STUDY: Abdomen and pelvis CT 11/13/2020. FINDINGS: Mild dependent changes seen at the lung bases. No pneumoperitoneum. No pneumatosis. Mild ri ght and moderate left hip osteoarthritis. No acute fractures within the visualized osseous structures . Stable 2 cm lipoma within the gastric antrum. Subcutaneous edema within the lumbar region. Cholecys tectomy. The unenhanced liver, spleen, right adrenal gland, and pancreas are unremarkable. Bilateral cortical renal scarring is again noted. No renal or ureteral stones. No hydronephrosis. No retroperit ruiz lymphadenopathy. Normal caliber abdominal aorta. Stable 1.8 cm left adrenal adenoma. No pelvic free fluid. Hysterectomy. The bladder is unremarkable. Suboptimal evaluation for bowel pathology due to the lack of intravenous and oral contrast. However, there is no definite bowel wall thickening or obstruction. Normal appendix. IMPRESSION: 1. No bowel wall thickening or obstruction. 2. Normal appendix. 3. Prior cholecystectomy. 4. No hydronephrosis. 5. Additional findings as described above. ACT 112: Negative or not required by law. Electronically signed by: Otto Hendrickson M.D. 12/27/2021 7:26 AM
[2021-12-27] MEDS: LEVALBUTEROL TARTRATE 15 GM HFA.AER.AD INH SCH ×4 (07:30→20:09)
[2021-12-27] MEDS: FLUoxetine HCL 20 MG CAP PO SCH (08:45)
[2021-12-27] MEDS: ISOSORBIDE MONO EXTENDED REL 30 MG TABCR PO SCH (08:45)
[2021-12-27] MEDS: busPIRone 15 MG TAB PO SCH (08:45)
[2021-12-27] MEDS: dexAMETHasone 6 MG in SYRINGE 0 ML IV SCH (08:46)
[2021-12-27] MEDS: CEFEPIME 2,000 MG in SYRINGE 0 ML IV SCH ×2 (11:16→22:38)
--- NOTE | 2021-12-27 13:09 | Hospitalist Progress Note ---
Date of Service December 27, 2021 Assessment & Plan (1) Acute exacerbation of chronic obstructive pulmonary disease: (2) Lab test positive for detection of COVID-19 virus: Plan: 61-year-old female w/ PMH of COPD, chronic respiratory failure on 3 liters oxyg en, hypothyroidism, sleep apnea, paroxysmal atrial fibrillation on Coumadin [noncompliance], idiopathic cardiomyopathy, patent foramen ovale, grade I diastolic dysfunction, morbid obesity, irritable bowel syndrome, history of narcotic addiction, chronic bilateral low back pain, von Willebrand disease, depression, generalized anxiety disorder,multiple strokes, PTSD, noncompliance with medication, who lives alone, ambulates with a walker presented 12/26 to the ED with complaints of dry cough and worsening shortness of breath since few days 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 She is being managed for the following: #. Long COVID #. Acute exacerbation of COPD likely secondary to above #. Acute on chronic respiratory failure with hypoxia likely secondary to above Patient was recently in the hospital for COVID-19 infection and acute on chronic respiratory failure. Patient not vaccinated against Covid, Covid was positive on 11/21. Came back positive on 12/26 this admission. Likely long Covid. Patient had received dexamethasone 11/21 - 11/30 and remdesivir 11/21 - 11/25 in previous admission. Patient was also treated with doxycycline during that admission. Admitting CXR negative for any acute findings. WBC elevated at 15.7 2K, will add pro-[place] to the admitting blood sample. Patient afebrile. 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 Patient was requiring 6 L oxygen at baseline exam. Diffuse and bilateral wheezing appreciated. Continue with Decadron, discontinue remdesivir [received first dose], was recently positive for Covid, less chances of reinfection. We will continue to monitor. Incentive spirometer/proning as able. Get BNP, CRP, pro-[place]. #. Complicated UTI Patient complains of achy abdominal pain with dysuria UA positive for UTI, follow-up with urine culture Continue with cefepime 12/27. As needed Pyridium. #. 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 INR presentation 1.0 Patient's home Coumadin dose resumed, continue to follow INR closely. Given extra dose of Coumadin today. #. Chronic medical conditions: History of CVA, embolic; anxiety/depression For history of CVA, embolic. on warfarin. Receiving extra dose of warfarin today. See above. For patient anxiety and depression, continue home medication including buspirone, fluoxetine, mirtazapine and as needed lorazepam Resume other home meds as appropriate. Judicious narcotic use given addiction history. DVT prophylaxis: Resumed Coumadin. SCDs until INR therapeutic. Full code 12/27-->Patient's primary contact and granddaughter Darlene [[phone]] given a phone call, left a voicemail to call us back and ask for Dr. Darnell. Admission and Anticipated Discharge Date Admission Date: December 27, 2021 Subjective Patient seen and examined at bedside for COPD exacerbation and complicated UTI. Patient lying in bed, on 6 L nasal cannula oxygen, NAD, no new acute events overnight per patient. Patient reports cough with no mucus. Patient reports eating and moving bowels okay. Patient reports chronic pressure/pain in her chest which has been there for a long time. Patient reports low belly pain. Patient denies any fever/headache/dizziness/palpitation/other review of symptoms. Physical Exam Physical Exam: GENERAL: Alert and oriented x3. NAD, on 6L. HEENT: No pallor, no icterus. Pupils equal, round and reactive to light. Oral mucosa moist. NECK: No JVD, no neck masses. HEART: S1 and S2 heard. Regular rate and rhythm. No murmur, no gallop. RESPIRATORY SYSTEM: Normal AP diameter. No accessory muscle use. + b/l wheezing, no crackles. ABDOMEN: Soft, bowel sounds present, nontender, no distention. CENTRAL NERVOUS SYSTEM: No facial droop. Speech is clear. Obeys simple commands. Moves extremities. EXTREMITIES: No edema, no erythema seen. Results & Data Results & Data ([facility]) Vital Signs (Past 12 Hours) Vital Signs Temp Pulse Pulse Resp BP Pulse Ox 12/27/21 11:47 36.4 C L 88 22 149/79 H 95 12/27/21 11:14 86 18 96 12/27/21 08:55 91 H 12/27/21 08:42 36.2 C L 95 H 22 141/76 H 93 12/27/21 08:10 90 18 94 12/27/21 04:20 36.5 C 90 16 129/71 94 12/27/21 03:00 82 20 104/54 L 97 12/27/21 01:50 81 22 99/54 L 98
[2021-12-27] MEDS: WARFARIN SOD 5 MG TAB PO SCH ×2 (13:16→21:07)
[2021-12-27] MEDS: NYSTATIN POWDER 15GM BTL EXT PRN (13:16)
[2021-12-27] MEDS: busPIRone 5 MG TAB PO SCH ×2 (13:16→21:08)
[2021-12-27] MEDS: PHENAZOPYRIDINE HCL 100 MG TAB PO PRN (16:23)
[2021-12-27] MEDS ORDERED: traMADol HCL 50 MG TABLET PO STA (19:47)
[2021-12-27] MEDS ORDERED: REMDESIVIR 100 MG in SODIUM CHLORIDE 0.9% 230 ML IV SCH (20:00)
[2021-12-27] MEDS: MIRTAZAPINE TAB 15 MG TAB PO SCH (21:03)
[2021-12-27] MEDS: traZODone HCL 50 MG TAB PO SCH (21:09)
[2021-12-27] MEDS ORDERED: ACETAMINOPHEN 1,000 MG/100 ML VIAL IV STA (21:56)
--- NOTE | 2021-12-27 22:27 | CT Scan Report ---
ABDOMEN AND PELVIS CT WITHOUT CONTRAST CT DOSE: 1843.30 mGy.cm HISTORY: Worsening generalized abdominal pain. TECHNIQUE: Multiaxial CT images of the abdomen and pelvis were performed without contrast. A dose lo wering technique was utilized adhering to the principles of ALARA. COMPARISON STUDY: None. FINDINGS: Mild dependent changes seen at the lung bases. No pneumoperitoneum. No pneumatosis. No frac tures within the visualized osseous structures. Lumbar subcutaneous edema, unchanged. Stable 2 cm lip [place] at the gastric antrum. Cholecystectomy. The unenhanced liver, right adrenal gland, spleen, and pa ncreas are unremarkable. Stable left adrenal adenoma. Bilateral cortical renal scarring is again note d. No renal or ureteral stones. No hydronephrosis. No retroperitoneal lymphadenopathy. Normal caliber abdominal aorta. No pelvic free fluid. The bladder is unremarkable. Prior hysterectomy. Suboptimal e valuation for bowel pathology due to the lack of intravenous and oral contrast. However, there is no definite bowel wall thickening or obstruction. Normal appendix. Moderate well-formed stool seen withi n the colon. IMPRESSION: 1. No definite bowel wall thickening or obstruction. 2. Normal appendix. 3. No hydronephrosis. 4. Prior cholecystectomy. 5. Additional findings as described above. ACT 112: Negative or not required by law. Electronically signed by: Otto Hendrickson M.D. 12/27/2021 10:26 PM
[2021-12-28] MEDS: traMADol HCL 50 MG TABLET PO PRN ×3 (07:53→22:44)
[2021-12-28] MEDS: LORazepam 0.5 MG TAB PO PRN ×3 (07:53→20:38)
[2021-12-28] MEDS: dexAMETHasone 6 MG in SYRINGE 0 ML IV SCH (07:53)
[2021-12-28] MEDS: ISOSORBIDE MONO EXTENDED REL 30 MG TABCR PO SCH (07:54)
[2021-12-28] MEDS: LEVALBUTEROL TARTRATE 15 GM HFA.AER.AD INH SCH ×4 (07:54→20:10)
[2021-12-28] MEDS: busPIRone 15 MG TAB PO SCH (07:54)
[2021-12-28] MEDS: FLUoxetine HCL 20 MG CAP PO SCH (07:54)
[2021-12-28] MEDS: PHENAZOPYRIDINE HCL 100 MG TAB PO PRN ×2 (07:54→13:31)
[2021-12-28] MEDS: guaiFENesin 600 MG TABCR PO SCH ×2 (07:54→20:37)
[2021-12-28 09:16] LABS: Basophils # (auto) 0.01 K/uL (0-0.2); Basophils % (auto) 0.1 %; Hematocrit (blood only) 36.7 % (37-47); Hemoglobin 11.2 g/dL (12.0-16.0); Immature Granulocytes # (auto) 0.04 K/uL (0.00-0.02); Immature Granulocytes % (auto) 0.3 %; Lymphocytes # (auto) 2.09 K/uL (1.2-3.4); Lymphocytes % (auto) 14.7 %; Mean Corpuscular Hemoglobin 29.6 pg (25-34); Mean Corpuscular Hgb Conc 30.5 g/dL (32-36); Mean Corpuscular Volume 96.8 fL (80-100); Mean Platelet Volume 8.9 fL (7.4-10.4); Monocytes # (auto) 0.96 K/uL (0.11-0.59); Monocytes % (auto) 6.7 %; Neutrophils # (auto) 11.15 K/uL (1.4-6.5); Neutrophils % (auto) 78.2 %; Platelet Count 498 K/uL (130-400); RDW Coefficient of Variation 17.7 % (11.5-14.5); Red Blood Count 3.79 M/uL (4.2-5.4); White Blood Count 14.25 K/uL (4.8-10.8)
[2021-12-28 09:25] LABS: Prothrombin Time 10.3 Seconds (9.0-12.0)
[2021-12-28 09:46] LABS: Albumin Globulin Ratio 1.3 (0.9-2); Albumin Level 3.7 gm/dl (3.4-5.0); BUN Creatinine Ratio 29.4 (10-20); Bilirubin,Total 0.3 mg/dl (0.2-1.0); C Reactive Protein 0.94 mg/dl (0-0.5); Calcium 9.2 mg/dl (8.5-10.1); Creatinine Clr Calc Pharmacy 103.5 ml/min; Est GFR (African American) 109.4 ml/min; Est GFR (Non-African American) 94.4 ml/min; Globulin 2.9 gm/dl (2.5-4.0); Potassium 3.9 mmol/L (3.5-5.1); Total Protein 6.6 gm/dl (6.0-8.3)
[2021-12-28] MEDS: CEFEPIME 2,000 MG in SYRINGE 0 ML IV SCH ×2 (11:58→22:45)
[2021-12-28] MEDS ORDERED: NON-FORMULARY MEDICATION (Cholecalciferol (Vitamin D3) 1,250 mcg (50,000 unit) capsule) PO SCH (12:15)
[2021-12-28] MEDS: FLUTICASONE/VILANTEROL 100/25MCG 14 PUFFS/INHALER INH SCH (13:30)
[2021-12-28] MEDS: busPIRone 5 MG TAB PO SCH ×2 (13:30→20:40)
[2021-12-28] MEDS: NYSTATIN POWDER 15GM BTL EXT PRN (14:58)
--- NOTE | 2021-12-28 15:50 | Hospitalist Progress Note ---
Date of Service December 28, 2021 Assessment & Plan (1) Acute exacerbation of chronic obstructive pulmonary disease: (2) Lab test positive for detection of COVID-19 virus: Plan: 61-year-old female w/ PMH of COPD, chronic respiratory failure on 3 liters oxyg en, hypothyroidism, sleep apnea, paroxysmal atrial fibrillation on Coumadin [noncompliance], idiopathic cardiomyopathy, patent foramen ovale, grade I diastolic dysfunction, morbid obesity, irritable bowel syndrome, history of narcotic addiction, chronic bilateral low back pain, von Willebrand disease, depression, generalized anxiety disorder,multiple strokes, PTSD, noncompliance with medication, who lives alone, ambulates with a walker presented 12/26 to the ED with complaints of dry cough and 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 She is being managed for the following: #. Long COVID #. Acute exacerbation of COPD likely secondary to noncompliance on the background of above #. Acute on chronic respiratory failure with hypoxia likely secondary to above Patient was recently in the hospital for COVID-19 infection and acute on chronic respiratory failure. Patient not vaccinated against Covid, Covid was positive on 11/21. Came back positive on 12/26 this admission. Likely long Covid. Patient had received dexamethasone 11/21 - 11/30 and remdesivir 11/21 - 11/25 in previous admission. Patient was also treated with doxycycline during that admission. Admitting CXR negative for any acute findings. WBC elevated at 15.7 2K, will add pro-Chapincito to the admitting blood sample. Patient afebrile. Patient presented with worsening shortness of breath, dry cough, pleuritic chest pain that onset few days [employer]AT WR[employer]. Patient had not taken any medications including her inhalers couple of days prior to admission. Patient was requiring 2 L oxygen at baseline exam. Diffuse and bilateral wheezing appreciated yesterday was improving. Continue with Decadron, discontinued remdesivir [received first dose], was recently positive for Covid, less chances of reinfection. We will continue to monitor. Incentive spirometer/proning as able. Pro-Chapincito and BNP negative, CRP mildly elevated. #. Complicated UTI Patient complains of achy abdominal pain with dysuria UA positive for UTI, urine culture positive for multidrug-resistant organism. Continue with cefepime 12/27. As needed Pyridium. #. 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 INR presentation 1.0 --> 1.0 still today. Patient's home Coumadin dose resumed, continue to follow INR closely. Patient started on subcu heparin until INR greater than 2.0 #. Chronic medical conditions: History of CVA, embolic; anxiety/depression For history of CVA, embolic. on warfarin. Receiving extra dose of warfarin today. See above. For patient anxiety and depression, continue home medication including buspirone, fluoxetine, mirtazapine and as needed lorazepam Resume other home meds as appropriate. Judicious narcotic use given addiction history. DVT prophylaxis: c/w Coumadin. Heparin subcu until INR therapeutic. Full code 12/27-->Patient's primary contact and granddaughter Darlene [[phone]] given a phone call, left a voicemail to call us back and ask for Dr. Darnell. 12/28 --> patient's primary contact Darlene given a phone call, updated about present current status which was likely the result of noncompliance with her home medication, answered all her questions, she voiced understanding and was agreeable to the plan of care. Admission and Anticipated Discharge Date Admission Date: December 27, 2021 Subjective Patient seen and examined at bedside for COPD exacerbation and complicated UTI. Patient lying in bed, on 2 L nasal cannula oxygen, NAD, no new acute events overnight per patient. Patient reports cough with no mucus. Patient reports eating and moving bowels okay. Patient reports chronic pressure/pain in her ch est along with other parts of the body including belly and legs and hands which has been there for a long time. Patient denies any fever/headache/dizziness/palpitation/other review of symptoms. Per RN patient is doing better, no new acute events overnight. Physical Exam Physical Exam: GENERAL: Alert and oriented x3. NAD, on 2L. HEENT: No pallor, no icterus. Pupils equal, round and reactive to light. Oral mucosa moist. NECK: No JVD, no neck masses. HEART: S1 and S2 heard. Regular rate and rhythm. No murmur, no gallop. RESPIRATORY SYSTEM: Normal AP diameter. No accessory muscle use. + b/l wheezing --> improving no crackles. ABDOMEN: Soft, bowel sounds present, nontender, no distention. CENTRAL NERVOUS SYSTEM: No facial droop. Speech is clear. Obeys simple commands. Moves extremities. EXTREMITIES: No edema, no erythema seen. Results & Data Results & Data ([facility]) Vital Signs (Past 12 Hours) Vital Signs Temp Pulse Pulse Resp BP Pulse Ox 12/28/21 11:58 36.8 C 90 22 135/7 L 92 12/28/21 09:04 18 97 12/28/21 07:53 80 18 97 12/28/21 07:52 36.5 C 65 18 131/80 98 12/28/21 07:30 52 L 12/28/21 05:12 36.4 C L 71 12 140/66 94
--- NOTE | 2021-12-28 18:03 | Electrocardiogram Report ---
Test Reason : Blood Pressure : / mmHG Vent. Rate : 096 BPM Atrial Rate : 096 BPM P-R Int : 148 ms QRS Dur : 078 ms QT Int : 352 ms P-R-T Axes : 024 -04 034 degrees QTc Int : 444 ms Normal sinus rhythm Nonspecific ST abnormality Abnormal ECG When compared with ECG of 27-NOV-2021 09:52, Nonspecific T wave abnormality no longer evident in Lateral leads Confirmed by Bean Yang ([id number]) on 12/28/2021 6:02:43 PM Referred By: REFERRED SELF Confirmed By:Bean Yang
[2021-12-28] MEDS: traZODone HCL 50 MG TAB PO SCH (20:35)
[2021-12-28] MEDS: MIRTAZAPINE TAB 15 MG TAB PO SCH (20:36)
[2021-12-28] MEDS: CHOLECALCIFEROL 1,000 UNITS 25 MCG TAB PO SCH (20:38)
[2021-12-28] MEDS: WARFARIN SOD 5 MG TAB PO SCH (20:39)
[2021-12-28] MEDS: HEPARIN SOD 5,000 UNIT/0.5 ML VIAL SQ SCH (20:41)
[2021-12-29] MEDS: LEVALBUTEROL TARTRATE 15 GM HFA.AER.AD INH SCH (07:21)
[2021-12-29 07:22] LABS: Hematocrit (blood only) 33.6 % (37-47); Hemoglobin 10.3 g/dL (12.0-16.0); Mean Corpuscular Hemoglobin 29.7 pg (25-34); Mean Corpuscular Hgb Conc 30.7 g/dL (32-36); Mean Corpuscular Volume 96.8 fL (80-100); Mean Platelet Volume 8.7 fL (7.4-10.4); Platelet Count 456 K/uL (130-400); RDW Coefficient of Variation 17.7 % (11.5-14.5); RDW Standard Deviation 63.2 fL (36.4-46.3); Red Blood Count 3.47 M/uL (4.2-5.4); White Blood Count 12.19 K/uL (4.8-10.8)
[2021-12-29] MEDS: traMADol HCL 50 MG TABLET PO PRN ×2 (08:18→16:22)
[2021-12-29] MEDS: FLUoxetine HCL 20 MG CAP PO SCH (08:18)
[2021-12-29] MEDS: guaiFENesin 600 MG TABCR PO SCH ×2 (08:19→21:35)
[2021-12-29] MEDS: dexAMETHasone 6 MG in SYRINGE 0 ML IV SCH (08:19)
[2021-12-29] MEDS: busPIRone 15 MG TAB PO SCH (08:19)
[2021-12-29] MEDS: ISOSORBIDE MONO EXTENDED REL 30 MG TABCR PO SCH (08:19)
[2021-12-29] MEDS: FLUTICASONE/VILANTEROL 100/25MCG 14 PUFFS/INHALER INH SCH (08:20)
[2021-12-29] MEDS: HEPARIN SOD 5,000 UNIT/0.5 ML VIAL SQ SCH ×2 (09:26→21:35)
[2021-12-29] MEDS: LORazepam 0.5 MG TAB PO PRN ×3 (09:26→21:53)
[2021-12-29] MEDS: LEVALBUTEROL TARTRATE 15 GM HFA.AER.AD INH PRN (10:52)
[2021-12-29] MEDS: CEFEPIME 2,000 MG in SYRINGE 0 ML IV SCH ×2 (11:35→23:47)
[2021-12-29] MEDS: ACETAMINOPHEN 325 MG TAB PO PRN (13:17)
[2021-12-29] MEDS: busPIRone 5 MG TAB PO SCH ×2 (13:17→21:34)
--- NOTE | 2021-12-29 18:21 | Hospitalist Progress Note ---
Date of Service December 29, 2021 Assessment & Plan (1) Acute exacerbation of chronic obstructive pulmonary disease: (2) Lab test positive for detection of COVID-19 virus: Plan: 61-year-old female w/ PMH of COPD, chronic respiratory failure on 3 liters oxyg en, hypothyroidism, sleep apnea, paroxysmal atrial fibrillation on Coumadin [noncompliance], idiopathic cardiomyopathy, patent foramen ovale, grade I diastolic dysfunction, morbid obesity, irritable bowel syndrome, history of narcotic addiction, chronic bilateral low back pain, von Willebrand disease, depression, generalized anxiety disorder,multiple strokes, PTSD, noncompliance with medication, who lives alone, ambulates with a walker presented 12/26 to the ED with complaints of dry cough and 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 She is being managed for the following: #. Long COVID #. Acute exacerbation of COPD likely secondary to noncompliance on the background of above #. Acute on chronic respiratory failure with hypoxia likely secondary to above Patient was recently in the hospital for COVID-19 infection and acute on chronic respiratory failure. Patient not vaccinated against Covid, Covid was positive on 11/21. Came back positive on 12/26 this admission. Likely long Covid. Patient had received dexamethasone 11/21 - 11/30 and remdesivir 11/21 - 11/25 in previous admission. Patient was also treated with doxycycline during that admission. Admitting CXR negative for any acute findings. Admitting WBC elevated at 15.7 2K. Patient afebrile. Patient presented with worsening shortness of breath, dry cough, pleuritic chest pain that onset few days [employer] SH[employer] FOREM[employer]. Patient had not taken any medications including her inhalers couple of days prior to admission. Patient was requiring 3 L oxygen at bedside exam. No wheezing appreciated today. Continue with Decadron, discontinued remdesivir [received first dose], was recently positive for Covid, less chances of reinfection. We will continue to monitor. Incentive spirometer/proning as able. Pro-Chapincito and BNP negative, CRP mildly elevated. #. Complicated UTI Patient complains of achy abdominal pain with dysuria UA positive for UTI, urine culture positive for multidrug-resistant organism. Continue with cefepime 12/27. As needed Pyridium. #. Subtherapeutic INR Patient reports not taking her Coumadin, at least not for the last 3 days [employer] SH[employer]. INR presentation 1.0 Patient's home Coumadin dose resumed, continue to follow INR closely. Patient on subcu heparin until INR greater than 2.0 #. Chronic medical conditions: History of CVA, embolic; anxiety/depression For history of CVA, embolic. on warfarin. Receiving extra dose of warfarin today. See above. For patient anxiety and depression, continue home medication including buspirone, fluoxetine, mirtazapine and as needed lorazepam Resume other home meds as appropriate. Judicious narcotic use given addiction history. DVT prophylaxis: c/w Coumadin. Heparin subcu until INR therapeutic. Full code 12/27-->Patient's primary contact and granddaughter Darlene [[phone]] given a phone call, left a voicemail to call us back and ask for Dr. Darnell. 12/28 --> patient's primary contact Darlene given a phone call, updated about present current status which was likely the result of noncompliance with her home medication, answered all her questions, she voiced understanding and was agreeable to the plan of care. Admission and Anticipated Discharge Date Admission Date: December 27, 2021 Subjective Patient seen and examined at bedside for COPD exacerbation and complicated UTI. Patient lying in bed, on 3 L nasal cannula oxygen, NAD, no new acute events overnight per patient. Patient reports cough with no mucus. Patient reports eating and moving bowels okay. Patient reports chronic pressure/pain in her chest along with other parts of the body including belly and legs and hands and head which has been there for a long time. Patient denies any fever/headache/dizziness/palpitation/other review of symptoms. Per RN no new acute events overnight. Physical Exam Physical Exam: GENERAL: Alert and oriented x3. NAD, on 3L. HEENT: No pallor, no icterus. Pupils equal, round and reactive to light. Oral mucosa moist. NECK: No JVD, no neck masses. HEART: S1 and S2 heard. Regular rate and rhythm. No murmur, no gallop. RESPIRATORY SYSTEM: Normal AP diameter. No accessory muscle use. + b/l wheezing --> improving no crackles. ABDOMEN: Soft, bowel sounds present, nontender, no distention. CENTRAL NERVOUS SYSTEM: No facial droop. Speech is clear. Obeys simple commands. Moves extremities. EXTREMITIES: No edema, no erythema seen. Results & Data Results & Data ([facility]) Vital Signs (Past 12 Hours) Vital Signs Temp Pulse Pulse Resp BP Pulse Ox Pulse Ox 12/29/21 16:51 36.6 C 85 19 94/62 L 92 12/29/21 16:00 83 12/29/21 14:49 94 12/29/21 12:00 36.6 C 88 20 110/62 94 12/29/21 10:52 77 18 94 12/29/21 07:54 36.5 C 68 19 106/65 96 12/29/21 07:21 62 18 99 12/29/21 07:00 61 Pulse Ox 12/29/21 16:51 12/29/21 16:00 12/29/21 14:49 74 L 12/29/21 12:00 12/29/21 10:52 12/29/21 07:54 12/29/21 07:21 12/29/21 07:00
[2021-12-29] MEDS: CHOLECALCIFEROL 1,000 UNITS 25 MCG TAB PO SCH (21:34)
[2021-12-29] MEDS: MIRTAZAPINE TAB 15 MG TAB PO SCH (21:36)
[2021-12-29] MEDS: traZODone HCL 50 MG TAB PO SCH (21:36)
[2021-12-29] MEDS: WARFARIN SOD 5 MG TAB PO SCH (21:37)
[2021-12-30] MEDS: traMADol HCL 50 MG TABLET PO PRN ×3 (06:21→22:38)
[2021-12-30 06:44] LABS: Hematocrit (blood only) 34.9 % (37-47); Hemoglobin 10.9 g/dL (12.0-16.0); Mean Corpuscular Hemoglobin 30.2 pg (25-34); Mean Corpuscular Hgb Conc 31.2 g/dL (32-36); Mean Corpuscular Volume 96.7 fL (80-100); Mean Platelet Volume 8.7 fL (7.4-10.4); Platelet Count 446 K/uL (130-400); RDW Coefficient of Variation 17.2 % (11.5-14.5); RDW Standard Deviation 61.5 fL (36.4-46.3); Red Blood Count 3.61 M/uL (4.2-5.4); White Blood Count 11.61 K/uL (4.8-10.8)
[2021-12-30 06:49] LABS: INR 1.3 (0.9-1.1); Prothrombin Time 12.6 Seconds (9.0-12.0)
[2021-12-30] MEDS: LORazepam 0.5 MG TAB PO PRN ×3 (09:37→22:38)
[2021-12-30] MEDS: ISOSORBIDE MONO EXTENDED REL 30 MG TABCR PO SCH (09:38)
[2021-12-30] MEDS: busPIRone 15 MG TAB PO SCH (09:38)
[2021-12-30] MEDS: dexAMETHasone 6 MG in SYRINGE 0 ML IV SCH (09:38)
[2021-12-30] MEDS: HEPARIN SOD 5,000 UNIT/0.5 ML VIAL SQ SCH ×2 (09:39→20:51)
[2021-12-30] MEDS: guaiFENesin 600 MG TABCR PO SCH ×2 (09:39→20:50)
[2021-12-30] MEDS: FLUoxetine HCL 20 MG CAP PO SCH (09:39)
[2021-12-30] MEDS: FLUTICASONE/VILANTEROL 100/25MCG 14 PUFFS/INHALER INH SCH (09:39)
[2021-12-30] MEDS: NYSTATIN POWDER 15GM BTL EXT PRN (09:45)
[2021-12-30] MEDS: LEVALBUTEROL TARTRATE 15 GM HFA.AER.AD INH PRN (10:23)
--- NOTE | 2021-12-30 10:23 | Electrocardiogram Report ---
Test Reason : Blood Pressure : / mmHG Vent. Rate : 073 BPM Atrial Rate : 073 BPM P-R Int : 136 ms QRS Dur : 090 ms QT Int : 382 ms P-R-T Axes : 035 006 059 degrees QTc Int : 420 ms Normal sinus rhythm Normal ECG When compared with ECG of 26-DEC-2021 19:19, No significant change Confirmed by Roger Patterson ([id number]) on 12/30/2021 10:23:20 AM Referred By: REFERRED SELF Confirmed By:Roger Patterson
[2021-12-30] MEDS: CEFEPIME 2,000 MG in SYRINGE 0 ML IV SCH ×2 (12:52→22:39)
[2021-12-30] MEDS: PHENAZOPYRIDINE HCL 100 MG TAB PO PRN ×2 (13:16→21:18)
[2021-12-30] MEDS: busPIRone 5 MG TAB PO SCH ×2 (13:16→20:52)
--- NOTE | 2021-12-30 19:16 | Hospitalist Progress Note ---
Date of Service December 30, 2021 Assessment & Plan (1) Acute exacerbation of chronic obstructive pulmonary disease: (2) Lab test positive for detection of COVID-19 virus: Plan: 61-year-old female w/ PMH of COPD, chronic respiratory failure on 3 liters oxyg en, hypothyroidism, sleep apnea, paroxysmal atrial fibrillation on Coumadin [noncompliance], idiopathic cardiomyopathy, patent foramen ovale, grade I diastolic dysfunction, morbid obesity, irritable bowel syndrome, history of narcotic addiction, chronic bilateral low back pain, von Willebrand disease, depression, generalized anxiety disorder,multiple strokes, PTSD, noncompliance with medication, who lives alone, ambulates with a walker presented 12/26 to the ED with complaints of dry cough and 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 She is being managed for the following: #. Long COVID #. Acute exacerbation of COPD likely secondary to noncompliance on the background of above #. Acute on chronic respiratory failure with hypoxia likely secondary to above Patient was recently in the hospital for COVID-19 infection and acute on chronic respiratory failure. Patient not vaccinated against Covid, Covid was positive on 11/21. Came back positive on 12/26 this admission. Likely long Covid. Patient had received dexamethasone 11/21 - 11/30 and remdesivir 11/21 - 11/25 in previous admission. Patient was also treated with doxycycline during that admission. Admitting CXR negative for any acute findings. Admitting WBC elevated at 15.7 2K. Patient afebrile. 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 Patient had not taken any medications including her inhalers couple of days prior to admission. Patient was requiring 3 L oxygen at bedside exam. No wheezing appreciated today. Continue with Decadron, discontinued remdesivir [received first dose], was recently positive for Covid, less chances of reinfection. We will continue to monitor. Incentive spirometer/proning as able. Pro-Chapincito and BNP negative, CRP mildly elevated. #. Complicated UTI Patient complains of achy abdominal pain with dysuria UA positive for UTI, urine culture positive for multidrug-resistant organism. Continue with cefepime 12/27. As needed Pyridium. #. 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 INR presentation 1.0 Patient's home Coumadin dose resumed, continue to follow INR closely. Patient on subcu heparin until INR greater than 2.0 Will need close follow-up with Coumadin clinic as an outpatient. #. Chronic medical conditions: History of CVA, embolic; anxiety/depression For history of CVA, embolic. on warfarin. Receiving extra dose of warfarin today. See above. For patient anxiety and depression, continue home medication including buspirone, fluoxetine, mirtazapine and as needed lorazepam Resume other home meds as appropriate. Judicious narcotic use given addiction history. DVT prophylaxis: c/w Coumadin. Heparin subcu until INR therapeutic. Full code 12/27-->Patient's primary contact and granddaughter Darlene [[phone]] given a phone call, left a voicemail to call us back and ask for Dr. Darnell. 12/28 --> patient's primary contact Darlene given a phone call, updated about present current status which was likely the result of noncompliance with her home medication, answered all her questions, she voiced understanding and was agreeable to the plan of care. Admission and Anticipated Discharge Date Admission Date: December 27, 2021 Subjective Patient seen and examined at bedside for COPD exacerbation and complicated UTI. Patient lying in bed, on 3 L nasal cannula oxygen, NAD, no new acute events overnight per patient. Patient reports cough with no mucus. Patient reports eating and moving bowels okay. Patient reports chronic pressure/pain in her chest along with other parts of the body including belly and legs and hands and head which has been there for a long time. Patient denies any fever/headache/dizziness/palpitation/other review of symptoms. Per RN no new acute events overnight. Physical Exam Physical Exam: GENERAL: Alert and oriented x3. NAD, on 3L. HEENT: No pallor, no icterus. Pupils equal, round and reactive to light. Oral mucosa moist. NECK: No JVD, no neck masses. HEART: S1 and S2 heard. Regular rate and rhythm. No murmur, no gallop. RESPIRATORY SYSTEM: Normal AP diameter. No accessory muscle use. Wheezing improved with occasional wheezes sometimes. ABDOMEN: Soft, bowel sounds present, nontender, no distention. CENTRAL NERVOUS SYSTEM: No facial droop. Speech is clear. Obeys simple commands. Moves extremities. EXTREMITIES: No edema, no erythema seen. Results & Data Results & Data ([facility]) Vital Signs (Past 12 Hours) Vital Signs Temp Pulse Pulse Resp BP Pulse Ox 12/30/21 17:00 36.6 C 90 22 120/63 95 12/30/21 15:05 91 H 12/30/21 11:00 36.6 C 87 22 130/73 93 12/30/21 10:24 88 18 95 12/30/21 07:35 36.7 C 68 17 121/78 97 12/30/21 07:30 71
[2021-12-30] MEDS ORDERED: ASPIRIN 81 MG CHEW ONE ×2 (20:31→20:48)
[2021-12-30] MEDS: traZODone HCL 50 MG TAB PO SCH (20:49)
[2021-12-30] MEDS: CHOLECALCIFEROL 1,000 UNITS 25 MCG TAB PO SCH (20:50)
[2021-12-30] MEDS: WARFARIN SOD 5 MG TAB PO SCH (20:50)
[2021-12-30] MEDS: MIRTAZAPINE TAB 15 MG TAB PO SCH (20:50)
[2021-12-31] MEDS: traMADol HCL 50 MG TABLET PO PRN ×2 (06:35→12:36)
[2021-12-31 06:59] LABS: INR 1.4 (0.9-1.1)
[2021-12-31] MEDS: LORazepam 0.5 MG TAB PO PRN ×2 (07:54→16:34)
[2021-12-31] MEDS: busPIRone 15 MG TAB PO SCH (07:55)
[2021-12-31] MEDS: FLUTICASONE/VILANTEROL 100/25MCG 14 PUFFS/INHALER INH SCH (07:55)
[2021-12-31] MEDS: FLUoxetine HCL 20 MG CAP PO SCH (07:56)
[2021-12-31] MEDS: HEPARIN SOD 5,000 UNIT/0.5 ML VIAL SQ SCH ×2 (07:56→20:13)
[2021-12-31] MEDS: ISOSORBIDE MONO EXTENDED REL 30 MG TABCR PO SCH (07:56)
[2021-12-31] MEDS: guaiFENesin 600 MG TABCR PO SCH ×2 (07:57→20:12)
[2021-12-31] MEDS: dexAMETHasone 6 MG in SYRINGE 0 ML IV SCH (07:57)
[2021-12-31] MEDS: LEVALBUTEROL TARTRATE 15 GM HFA.AER.AD INH PRN (09:33)
[2021-12-31] MEDS ORDERED: bisacodyL 10 MG SUPP PR STA (10:21)
[2021-12-31] MEDS: DICLOFENAC SOD 1% GEL 100 GM TUBE EXT SCH ×2 (11:42→20:16)
[2021-12-31] MEDS: CEFEPIME 2,000 MG in SYRINGE 0 ML IV SCH ×2 (12:36→22:54)
[2021-12-31] MEDS ORDERED: bisacodyL 10 MG SUPP PR ONE (13:32)
[2021-12-31] MEDS: oxyCODONE/ACETAMINOPHEN 5mg/325mg TAB PO PRN ×2 (13:39→19:39)
[2021-12-31] MEDS: busPIRone 5 MG TAB PO SCH ×2 (13:42→20:12)
--- NOTE | 2021-12-31 14:32 | Hospitalist Progress Note ---
Date of Service December 31, 2021 Assessment & Plan (1) Acute exacerbation of chronic obstructive pulmonary disease: Plan: 61-year-old female w/ PMH of COPD, chronic respiratory failure on 3 liters oxygen, hypothyroidism, sleep apnea, paroxysmal atrial fibrillation on Coumadin [noncompliance], idiopathic cardiomyopathy, patent foramen ovale, grade I diastolic dysfunction, morbid obesity, irritable bowel syndrome, history of narcotic addiction, chronic bilateral low back pain, von Willebrand disease, depression, generalized anxiety disorder,multiple strokes, PTSD, noncompliance with medication, who lives alone, ambulates with a walker presented 12/26 to the ED with complaints of dry cough and worsening shortness of breath since few days SNOW REMOVAL/PLOWING associated with pleuritic chest pain/achy abdominal pain with dysuria. She is being managed for the following: Acute exacerbation of COPD likely secondary to noncompliance Acute on chronic respiratory failure with hypoxia and is complicated by recent Covid 19 infection Patient presented with worsening shortness of breath, dry cough, pleuritic chest pain that onset few days SNOW REMOVAL/PLOWING. Patient had not taken any medications including her inhalers couple of days prior to admission. Patient was requiring 3 L oxygen at bedside exam. Patient was recently in the hospital for COVID-19 infection and acute on chronic respiratory failure. Patient not vaccinated against Covid, Covid was positive on 11/21. Came back positive on 12/26 this admission. Patient had received dexamethasone 11/21 - 11/30 and remdesivir 11/21 - 11/25 in previous admission. Patient was also treated with doxycycline during that admission. Has been receiving dexamethasone We will continue to monitor. Incentive spirometer/proning as able. Pro-Chapincito and BNP negative, CRP mildly elevated. Respiratory symptoms are improved and she has been saturating normally on 3 L of nasal cannula oxygen Complicated UTI Patient complains of achy abdominal pain with dysuria UA positive for UTI, urine culture positive for multidrug-resistant organism. Continue with cefepime 12/27. As needed Pyridium. Minimal symptoms without any fever and/or chills Finish the course of antibiotic (2) Lab test positive for detection of COVID-19 virus: Plan: Has had recent COVID-19 virus infection on 21 November and received treatment with dexamethasone and remdesivir Has been getting dexamethasone during this admission (3) Acute on chronic respiratory failure with hypoxia: Plan: As above (4) Degenerative joint disease of left hip: Plan: Has been complaining of left hip and left knee pain History of left hip trochanteric bursitis Has been getting intravenous steroid, will give local diclofenac cream Pain medications have been changed to Percocet from Ultram (5) Trochanteric bursitis of left hip: (6) PAF (paroxysmal atrial fibrillation): Plan: Rate is controlled (7) Anticoagulated on Coumadin: Plan: Her admission INR was normal Coumadin has been restarted INR is 1.4 as of (8) Morbid obesity: (9) Anxiety and depression: Plan: Chronic medical conditions: History of CVA, embolic; anxiety/depression For history of CVA, embolic. on warfarin. Receiving extra dose of warfarin today. See above. For patient anxiety and depression, continue home medication including buspirone, fluoxetine, mirtazapine and as needed lorazepam Resume other home meds as appropriate. Judicious narcotic use given addiction history . DVT prophylaxis: c/w Coumadin. Heparin subcu until INR therapeutic. Full code 12/27-->Patient's primary contact and granddaughter Darlene [[phone]] given a phone call, left a voicemail to call us back and ask for Dr. Darnell. 12/28 --> patient's primary contact Darlene given a phone call, updated about present current status which was likely the result of noncompliance with her home medication, answered all her questions, she voiced understanding and was agreeable to the plan of care. Will update the Granddaughter Admission and Anticipated Discharge Date Admission Date: December 27, 2021 Subjective 12/21/2021 Patient was seen and examined in medical telemetry unit She has been complaining of pain all over the body and especially the left hip and knee and lower abdomen Has not been participating in PT and OT due to increasing pain We will change her pain medications and possible discharge tomorrow Review of Systems Review of Systems: All systems reviewed and are unremarkable except as noted below Musculoskeletal: Left hip and left knee pain-no evidence of acute arthritis involving the joints Physical Exam Physical Exam: Lying in bed with pain in multiple areas Constitutional: well developed, well nourished, + ill appearing and + morbidly obese Eyes: PERRL, conjunctivae normal, anicteric sclerae ENMT: external ear and nose normal, oropharynx normal Neck: trachea midline, no thyromegaly Respiratory: no respiratory distress Auscultation: + diminished lung sounds and + crackles (Minimal crackles at the bases) Cardiovascular: Rate/Rhythm: regular rate and regular rhythm; not tachycardic Heart Sounds: normal S1 and normal S2; no murmur Extremities: + edema (1+ edema bilaterally) Gastrointestinal (Abdomen): Inspection/Auscultation: normal bowel sounds; abdomen not distended Percussion/Palpation: abdomen soft; abdomen nontender Musculoskeletal: No acute arthritis in any joint. Movement of the left hip j oint was painful Neurologic: Alert, awake and oriented x3 Results & Data Results & Data ([facility]) Vital Signs (Past 12 Hours) Vital Signs Temp Pulse Pulse Resp BP Pulse Ox 12/31/21 11:19 36.7 C 91 H 18 106/68 91 12/31/21 09:33 100 H 20 93 12/31/21 07:40 61 12/31/21 07:25 36.6 C 67 18 130/86 91 12/31/21 03:10 36.4 C L 68 18 138/83 96 Medications Administered Current Inpatient Medications Acetaminophen (Acetaminophen 325 Mg Tab) 650 mg PO Q6H PRN PRN Reason: Fever/pain Stop: 01/25/22 23:48 Last Admin: 12/29/21 13:17 Dose: 650 mg Documented by: Buspirone HCl (Buspirone 5 Mg Tab) 10 mg PO BID@1400,2100 [facility] Stop: 01/26/22 13:59 Last Admin: 12/31/21 13:42 Dose: 10 mg Documented by: Buspirone HCl (Buspirone 15 Mg Tab) 15 mg PO QAM [facility] Stop: 01/26/22 08:59 Last Admin: 12/31/21 07:55 Dose: 15 mg Documented by: Diclofenac Sodium (Diclofenac Sod 1% Gel 100 Gm Tube) 4 gm EXT BID [facility] Stop: 01/30/22 10:29 Last Admin: 12/31/21 11:42 Dose: 4 gm Documented by: Fluoxetine HCl (Fluoxetine Hcl 20 Mg Cap) 20 mg PO QAM [facility] Stop: 01/26/22 08:59 Last Admin: 12/31/21 07:56 Dose: 20 mg Documented by: Fluticasone/Vilanterol (Fluticasone/Vilanterol 100/25mcg 14 Puffs/Inhaler) 1 puffs INH DAILY [facility] Stop: 01/27/22 08:59 Last Admin: 12/31/21 07:55 Dose: 1 puffs Documented by: Guaifenesin (Guaifenesin 600 Mg Tabcr) 600 mg PO Q12 [facility] Stop: 01/26/22 00:24 Last Admin: 12/31/21 07:57 Dose: 600 mg Documented by: Heparin Sodium (Porcine) (Heparin Sod 5,000 Unit/0.5 Ml Vial) 5,000 units SQ Q12 [facility] Stop: 01/27/22 20:59 Last Admin: 12/31/21 07:56 Dose: 5,000 units Documented by: Dexamethasone 6 mg/ Syringe 1.5 mls @ 1 mls/min IV DAILY [facility] Stop: 01/26/22 08:59 Last Admin: 12/31/21 07:57 Dose: 1 mls/min Documented by: Cefepime HCl 2,000 mg/ Syringe 20 mls @ 5 mls/min IV Q12H [facility]; Protocol Stop: 01/06/22 10:59 Last Admin: 12/31/21 12:36 Dose: 5 mls/min Documented by: Promethazine HCl 12.5 mg/ (Sodium Chloride) 50.5 mls @ 202 mls/hr IV Q6H PRN PRN Reason: Nausea And Vomiting Stop: 01/26/22 04:46 Isosorbide Mononitrate (Isosorbide [place] Extended Rel 30 Mg Tabcr) 30 mg PO QAM [facility] Stop: 01/26/22 08:59 Last Admin: 12/31/21 07:56 Dose: 30 mg Documented by: Levalbuterol HCl (Levalbuterol Tartrate 15 Gm Hfa.Aer.Ad) 2 puffs INH QIDR PRN PRN Reason: wheezing/sob Stop: 01/26/22 06:59 Last Admin: 12/31/21 09:33 Dose: 2 puffs Documented by: Lorazepam (Lorazepam 0.5 Mg Tab) 0.5 mg PO TID PRN PRN Reason: Anxiety Stop: 01/26/22 04:46 Last Admin: 12/31/21 07:54 Dose: 0.5 mg Documented by: Mirtazapine (Mirtazapine Tab 15 Mg Tab) 7.5 mg PO HS [facility] Stop: 01/26/22 20:59 Last Admin: 12/30/21 20:50 Dose: 7.5 mg Documented by: Nystatin (Nystatin Powder 15gm Btl) 1 appln EXT BID PRN PRN Reason: Affected Skin Folds Stop: 01/26/22 11:50 Last Admin: 12/30/21 09:45 Dose: 1 appln Documented by: Oxycodone/Acetaminophen (Oxycodone/Acetaminophen 5mg/325mg Tab) 1 tab PO Q4H PRN PRN Reason: Pain Stop: 01/14/22 13:18 Last Admin: 12/31/21 13:39 Dose: 1 tab Documented by: Phenazopyridine HCl (Phenazopyridine Hcl 100 Mg Tab) 100 mg PO TID PRN PRN Reason: bladder pain, dyuria Last Admin: 12/30/21 21:18 Dose: 100 mg Documented by: Trazodone HCl (Trazodone Hcl 50 Mg Tab) 150 mg PO [facility] Stop: 01/26/22 20:59 Last Admin: 12/30/21 20:49 Dose: 150 mg Documented by: Vitamin D (Cholecalciferol 1,000 Units 25 Mcg Tab) 1,000 units PO [facility] Stop: 01/27/22 20:59 Last Admin: 12/30/21 20:50 Dose: 1,000 units Documented by: Warfarin Sodium (Warfarin Sod 5 Mg Tab) 5 mg PO QPM [facility] Stop: 01/26/22 10:59 Last Admin: 12/30/21 20:50 Dose: 5 mg Documented by:
--- NOTE | 2021-12-31 15:59 | XRay Report ---
LEFT HIP 2 VIEWS CLINICAL HISTORY: Left hip pain. Osteoarthritis. FINDINGS: AP and frog-leg views of the left hip are compared to study dated 11/05/2020. Correlation i s made with pelvic CT dated 12/27/2021. The skeletal structures are osteopenic. There is no radiograph ic evidence of fracture involving the left hip or the visualized left hemipelvis. Moderate to advance d osteoarthritic change is seen in the left hip. Overgrowth and sclerotic change is noted in the femo ral head. The overlying soft tissues are within normal limits. IMPRESSION: Moderate to advanced osteoarthritic change of the left hip as above with no acute bony ab normality identified. Electronically signed by: Donavon Littlejohn M.D. 12/31/2021 3:58 PM
[2021-12-31] MEDS: CHOLECALCIFEROL 1,000 UNITS 25 MCG TAB PO SCH (20:12)
[2021-12-31] MEDS: MIRTAZAPINE TAB 15 MG TAB PO SCH (20:13)
[2021-12-31] MEDS: WARFARIN SOD 5 MG TAB PO SCH (20:15)
[2021-12-31] MEDS: traZODone HCL 50 MG TAB PO SCH (20:24)
[2022-01-01] MEDS: LORazepam 0.5 MG TAB PO PRN ×4 (04:02→20:41)
[2022-01-01] MEDS: oxyCODONE/ACETAMINOPHEN 5mg/325mg TAB PO PRN ×4 (04:02→22:39)
[2022-01-01] MEDS: NYSTATIN POWDER 15GM BTL EXT PRN (05:14)
[2022-01-01] MEDS: LEVALBUTEROL TARTRATE 15 GM HFA.AER.AD INH PRN ×2 (05:20→16:46)
[2022-01-01 07:03] LABS: INR 1.7 (0.9-1.1); Prothrombin Time 16.5 Seconds (9.0-12.0)
[2022-01-01 07:11] LABS: Creatinine Clr Calc Pharmacy 108.2 ml/min; Est GFR (Non-African American) 94.9 ml/min
[2022-01-01] MEDS: FLUoxetine HCL 20 MG CAP PO SCH (07:54)
[2022-01-01] MEDS: HEPARIN SOD 5,000 UNIT/0.5 ML VIAL SQ SCH ×2 (07:54→20:33)
[2022-01-01] MEDS: ISOSORBIDE MONO EXTENDED REL 30 MG TABCR PO SCH (07:54)
[2022-01-01] MEDS: busPIRone 15 MG TAB PO SCH (07:55)
[2022-01-01] MEDS: dexAMETHasone 6 MG in SYRINGE 0 ML IV SCH (07:55)
[2022-01-01] MEDS: DICLOFENAC SOD 1% GEL 100 GM TUBE EXT SCH ×2 (07:55→20:34)
[2022-01-01] MEDS: guaiFENesin 600 MG TABCR PO SCH ×2 (07:55→20:33)
[2022-01-01] MEDS: FLUTICASONE/VILANTEROL 100/25MCG 14 PUFFS/INHALER INH SCH (07:56)
[2022-01-01] MEDS: PHENAZOPYRIDINE HCL 100 MG TAB PO PRN (09:38)
--- NOTE | 2022-01-01 11:17 | Hospitalist Progress Note ---
Date of Service January 01, 2022 Assessment & Plan (1) Acute exacerbation of chronic obstructive pulmonary disease: Plan: 61-year-old female w/ PMH of COPD, chronic respiratory failure on 3 liters oxygen, hypothyroidism, sleep apnea, paroxysmal atrial fibrillation on Coumadin [noncompliance], idiopathic cardiomyopathy, patent foramen ovale, grade I diastolic dysfunction, morbid obesity, irritable bowel syndrome, history of narcotic addiction, chronic bilateral low back pain, von Willebrand disease, depression, generalized anxiety disorder,multiple strokes, PTSD, noncompliance with medication, who lives alone, ambulates with a walker presented 12/26 to the ED with complaints of dry cough and worsening shortness of breath since few days [employer]ACH[employer] associated with pleuritic chest pain/achy abdominal pain with dysuria. She is being managed for the following: Acute exacerbation of COPD likely secondary to noncompliance Acute on chronic respiratory failure with hypoxia and is complicated by recent Covid 19 infection Patient presented with worsening shortness of breath, dry cough, pleuritic chest pain that onset few days [employer]. Patient had not taken any medications including her inhalers couple of days prior to admission. Patient was requiring 3 L oxygen at bedside exam. Patient was recently in the hospital for COVID-19 infection and acute on chronic respiratory failure. Patient not vaccinated against Covid, Covid was positive on 11/21. Came back positive on 12/26 this admission. Patient had received dexamethasone 11/21 - 11/30 and remdesivir 11/21 - 11/25 in previous admission. Patient was also treated with doxycycline during that admission. Has been receiving dexamethasone We will continue to monitor. Incentive spirometer/proning as able. Pro-Chapincito and BNP negative, CRP mildly elevated. Respiratory symptoms are improved and she has been saturating normally on 3 L of nasal cannula oxygen Respiratory symptoms remain stable Complicated UTI Patient complains of achy abdominal pain with dysuria UA positive for UTI, urine culture positive for multidrug-resistant organism. Continue with cefepime 12/27. As needed Pyridium. Minimal symptoms without any fever and/or chills Finish the course of antibiotic Minimal hypogastric discomfort and has been getting Pyridium (2) Lab test positive for detection of COVID-19 virus: Plan: Has had recent COVID-19 virus infection on 21 November and received treatment with dexamethasone and remdesivir Has been getting dexamethasone during this admission (3) Acute on chronic respiratory failure with hypoxia: Plan: As above (4) Degenerative joint disease of left hip: Plan: Has been complaining of left hip and left knee pain History of left hip trochanteric bursitis Has been getting intravenous steroid, will give local diclofenac cream Pain medications have been changed to Percocet from Ultram X-ray of the left hip showed moderate to advanced osteoarthritis Advised to continue PT and pain medications as needed (5) Trochanteric bursitis of left hip: Plan: Has been getting diclofenac sodium locally (6) PAF (paroxysmal atrial fibrillation): Plan: Rate is controlled (7) Anticoagulated on Coumadin: Plan: Her admission INR was normal Coumadin has been restarted INR is 1.4 as of INR is 1.7 as of January 01, 2022 (8) Morbid obesity: (9) Anxiety and depression: Plan: Continue with as needed antianxiety medication Plan: Chronic medical conditions: History of CVA, embolic; anxiety/depression For history of CVA, embolic. on warfarin. Receiving extra dose of warfarin today. See above. For patient anxiety and depression, continue home medication including bu spirone, fluoxetine, mirtazapine and as needed lorazepam Resume other home meds as appropriate. Judicious narcotic use given addiction history . DVT prophylaxis: c/w Coumadin. Heparin subcu until INR therapeutic. Full code 12/27-->Patient's primary contact and granddaughter Darlene [[phone]] given a phone call, left a voicemail to call us back and ask for Dr. Darnell. 12/28 --> patient's primary contact Darlene given a phone call, updated about present current status which was likely the result of noncompliance with her home medication, answered all her questions, she voiced understanding and was agreeable to the plan of care. Likely be transferred to [facility] this afternoon Admission and Anticipated Discharge Date Admission Date: December 27, 2021 Subjective 12/31/2021 Patient was seen and examined in medical telemetry unit She has been complaining of pain all over the body and especially the left hip and knee and lower abdomen Has not been participating in PT and OT due to increasing pain We will change her pain medications and possible discharge tomorrow January 01, 2022 The patient was seen and examined in medical telemetry unit She still complains to have pain in the left hip and does not come out of bed du e to fear of pain Also has some discomfort in the lower abdomen Denies any other significant symptoms Review of Systems Review of Systems: All systems reviewed and are unremarkable except as noted below Musculoskeletal: Left hip and left knee pain-no evidence of acute arthritis involving the joints Physical Exam Physical Exam: Lying in bed with pain in multiple areas Constitutional: well developed, well nourished, + ill appearing and + morbidly obese Eyes: PERRL, conjunctivae normal, anicteric sclerae ENMT: external ear and nose normal, oropharynx normal Neck: trachea midline, no thyromegaly Respiratory: no respiratory distress Auscultation: + diminished lung sounds and + crackles (Minimal crackles at the bases) Cardiovascular: Rate/Rhythm: regular rate and regular rhythm; not tachycardic Heart Sounds: normal S1 and normal S2; no murmur Extremities: + edema (1+ edema bilaterally) Gastrointestinal (Abdomen): Inspection/Auscultation: normal bowel sounds; abdomen not distended Percussion/Palpation: abdomen soft; abdomen nontender Musculoskeletal: Hip: + limited ROM of hip (Left hip with pain) Pain with movement of the left lower extremity especially the left hip joint Neurologic: Alert, awake and oriented x3. Generally very weak and lethargic Results & Data Results & Data ([facility]) Vital Signs (Past 12 Hours) Vital Signs Temp Pulse Pulse Resp BP Pulse Ox 01/01/22 07:11 36.3 C L 70 20 122/82 94 01/01/22 07:10 72 01/01/22 05:23 87 18 93 01/01/22 03:18 36.3 C L 67 20 113/72 94 Laboratory Results [facility] 01/01/22 06:06 Creatinine 0.67 Medications Administered Current Inpatient Medications Acetaminophen (Acetaminophen 325 Mg Tab) 650 mg PO Q6H PRN PRN Reason: Fever/pain Stop: 01/25/22 23:48 Last Admin: 12/29/21 13:17 Dose: 650 mg Documented by: Buspirone HCl (Buspirone 5 Mg Tab) 10 mg PO BID@1400,2100 [facility] Stop: 01/26/22 13:59 Last Admin: 12/31/21 20:12 Dose: 10 mg Documented by: Buspirone HCl (Buspirone 15 Mg Tab) 15 mg PO QAM [facility] Stop: 01/26/22 08:59 Last Admin: 01/01/22 07:55 Dose: 15 mg Documented by: Diclofenac Sodium (Diclofenac Sod 1% Gel 100 Gm Tube) 4 gm EXT BID [facility] Stop: 01/30/22 10:29 Last Admin: 01/01/22 07:55 Dose: 4 gm Documented by: Fluoxetine HCl (Fluoxetine Hcl 20 Mg Cap) 20 mg PO QAM [facility] Stop: 01/26/22 08:59 Last Admin: 01/01/22 07:54 Dose: 20 mg Documented by: Fluticasone/Vilanterol (Fluticasone/Vilanterol 100/25mcg 14 Puffs/Inhaler) 1 puffs INH DAILY [facility] Stop: 01/27/22 08:59 Last Admin: 01/01/22 07:56 Dose: 1 puffs Documented by: Guaifenesin (Guaifenesin 600 Mg Tabcr) 600 mg PO Q12 [facility] Stop: 01/26/22 00:24 Last Admin: 01/01/22 07:55 Dose: 600 mg Documented by: Heparin Sodium (Porcine) (Heparin Sod 5,000 Unit/0.5 Ml Vial) 5,000 units SQ Q12 [facility] Stop: 01/27/22 20:59 Last Admin: 01/01/22 07:54 Dose: 5,000 units Documented by: Dexamethasone 6 mg/ Syringe 1.5 mls @ 1 mls/min IV DAILY [facility] Stop: 01/26/22 08:59 Last Admin: 01/01/22 07:55 Dose: 1 mls/min Documented by: Cefepime HCl 2,000 mg/ Syringe 20 mls @ 5 mls/min IV Q12H [facility]; Protocol Stop: 01/06/22 10:59 Last Admin: 12/31/21 22:54 Dose: 5 mls/min Documented by: Promethazine HCl 12.5 mg/ (Sodium Chloride) 50.5 mls @ 202 mls/hr IV Q6H PRN PRN Reason: Nausea And Vomiting Stop: 01/26/22 04:46 Isosorbide Mononitrate (Isosorbide [place] Extended Rel 30 Mg Tabcr) 30 mg PO QAM [facility] Stop: 01/26/22 08:59 Last Admin: 01/01/22 07:54 Dose: 30 mg Documented by: Levalbuterol HCl (Levalbuterol Tartrate 15 Gm Hfa.Aer.Ad) 2 puffs INH QIDR PRN PRN Reason: wheezing/sob Stop: 01/26/22 06:59 Last Admin: 01/01/22 05:20 Dose: 2 puffs Documented by: Lorazepam (Lorazepam 0.5 Mg Tab) 0.5 mg PO TID PRN PRN Reason: Anxiety Stop: 01/26/22 04:46 Last Admin: 01/01/22 04:02 Dose: 0.5 mg Documented by: Mirtazapine (Mirtazapine Tab 15 Mg Tab) 7.5 mg PO [facility] Stop: 01/26/22 20:59 Last Admin: 12/31/21 20:13 Dose: 7.5 mg Documented by: Nystatin (Nystatin Powder 15gm Btl) 1 appln EXT BID PRN PRN Reason: Affected Skin Folds Stop: 01/26/22 11:50 Last Admin: 01/01/22 05:14 Dose: 1 appln Documented by: Oxycodone/Acetaminophen (Oxycodone/Acetaminophen 5mg/325mg Tab) 1 tab PO Q4H PRN PRN Reason: Pain Stop: 01/14/22 13:18 Last Admin: 01/01/22 09:38 Dose: 1 tab Documented by: Trazodone HCl (Trazodone Hcl 50 Mg Tab) 150 mg PO [facility] Stop: 01/26/22 20:59 Last Admin: 12/31/21 20:24 Dose: 150 mg Documented by: Vitamin D (Cholecalciferol 1,000 Units 25 Mcg Tab) 1,000 units PO [facility] Stop: 01/27/22 20:59 Last Admin: 12/31/21 20:12 Dose: 1,000 units Documented by: Warfarin Sodium (Warfarin Sod 5 Mg Tab) 5 mg PO QPM [facility] Stop: 01/26/22 10:59 Last Admin: 12/31/21 20:15 Dose: 5 mg Documented by:
[2022-01-01] MEDS: CEFEPIME 2,000 MG in SYRINGE 0 ML IV SCH ×2 (11:38→22:39)
--- NOTE | 2022-01-01 13:47 | Electrocardiogram Report ---
Test Reason : Blood Pressure : / mmHG Vent. Rate : 093 BPM Atrial Rate : 093 BPM P-R Int : 128 ms QRS Dur : 078 ms QT Int : 348 ms P-R-T Axes : 044 012 076 degrees QTc Int : 432 ms Normal sinus rhythm Normal ECG When compared with ECG of 29-DEC-2021 17:54, No significant change was found Confirmed by Roger Patterson ([id number] on 01/01/2022 1:47:18 PM Referred By: REFERRED SELF Confirmed By:Roger Patterson
[2022-01-01] MEDS: busPIRone 5 MG TAB PO SCH ×2 (15:05→20:33)
--- NOTE | 2022-01-01 18:44 | Orthopedic Consultation ---
Date of Service January 01, 2022 Assessment & Plan (1) Trochanteric bursitis of left hip: (2) Lumbar radiculopathy: (3) Degenerative joint disease of left hip: -No acute intervention warranted. -Pain is multifactorial. Treatment options limited. Likely not a surgical candidate. -Recommend follow up as outpatient for trial of steroid injection. This could be in L greater trochanter or intra-articular injection under US guidance. Would not recommend doing this now since she has been getting systemic steroids since admission. -Encouraged pt to work with PT but she has very limited functional capacity. She is averse to PT as her severe pain causes her to become SOB very quickly. -Agree with current pain management regimen. Discussed with Dr. Krueger History of Present Illness Reason for Consultation: Left hip pain . Requesting Physician: Sonia Myers MD. Attending Physician: Sonia Myers MD Pt is an unfortunate 61 y/o/f with PMHx of COPD, chronic respiratory failure on home O2, hypothyroidism, sleep apnea, paroxysmal atrial fibrillation on Coumadin [noncompliance], idiopathic cardiomyopathy, patent foramen ovale, grade I diastolic dysfunction, morbid obesity, irritable bowel syndrome, history of narcotic addiction, chronic bilateral low back pain, von Willebrand disease, depression, generalized anxiety disorder,multiple strokes, PTSD, noncompliance with medication who was originally admitted to medicine on 12/27 for COPD exacerbation and UTI. Treated with high dose steroids and antibiotics. She has developed worsening left hip pain (lateral and groin) since admission. XRs of left hip showing moderate to severe degenerative changes. Primary team has been treating with diclofenac cream, Ultram, and working with PT while admitted. She has been getting IV steroids for COPD exacerbation. We are consulted for further input on her left hip pain. Of note, she was seen in our office last May and offered a steroid injection both within hip joint and L greater trochanter. She declined both. She does not recall this visit. Seen at bedside. Clearly in pain, tearful. Endorses pain down her entire LLE, including groin, lateral hip, knee, calf. Allergies Allergy/AdvReac Type Severity Reaction Status Date / Time aspirin Allergy Unknown TAKES Verified 12/26/21 20:49 COUMADIN salicylates AdvReac Unknown ?DUE TO Verified 12/26/21 20:49 COUMADIN? Home Medications Medication Instructions Recorded Confirmed Type isosorbide mononitrate 30 mg 30 mg PO QAM #0 tab 09/22/20 12/26/21 Rx tablet,extended release 24 hr cholecalciferol (vitamin D3) 1,250 1,250 mcg PO WK 05/20/21 12/26/21 History mcg (50,000 unit) capsule lorazepam 0.5 mg tablet 0.5 mg PO TID PRN 05/20/21 12/26/21 History tramadol 100 mg tablet 100 mg PO Q8 PRN 05/20/21 12/26/21 History cholecalciferol (vitamin D3) 25 25 mcg PO HS 06/13/21 12/26/21 History mcg (1,000 unit) capsule fluoxetine 20 mg capsule 20 mg PO QAM 11/21/21 12/26/21 History nystatin 100,000 unit/gram topical 1 applic TOPICAL BID 11/21/21 12/26/21 History powder ([facility]) trazodone 150 mg tablet 150 mg PO HS 11/21/21 12/26/21 History buspirone 15 mg tablet 15 mg PO QAM #30 tab 12/03/21 12/26/21 Rx buspirone 5 mg tablet 10 mg PO BID@1400,2100 #60 tab 12/03/21 12/26/21 Rx budesonide-formoterol HFA 80 2 puff INHALATION BID 12/26/21 12/26/21 History mcg-4.5 mcg/actuation aerosol inhaler (Symbicort) mirtazapine 7.5 mg tablet 7.5 mg PO HS 12/26/21 12/26/21 History warfarin 5 mg tablet 5 mg PO QPM 12/26/21 12/26/21 History Past Med/Surg History Medical History Anxiety and depression Atrial fibrillation Atypical chest pain Cerebrovascular disease Chronic pain on daily narcotics Complicated bereavement History of stroke "embolic stroke, underlying PFO" Morbid obesity PAF (paroxysmal atrial fibrillation) Submucosal lesion of stomach Noted on EGD 11/06/20 Supratherapeutic INR Surgical History Status post cholecystectomy Status post hysterectomy Family History Other Heart disease Social History Smoking Status: Former smoker Tobacco Type: Cigarettes Second Hand Exposure: No; Hx Alcohol Use: No Hx Substance Use: Yes (Per history.) Preferred Language: Greek Communication Ability: Effective Crab Picker Required: No Beliefs That Will Affect Care: None marital status: / Current Living Situation: Alone Current Living Situation Comment: in march Other Information That Helps Us Care for You: No Feels Safe at Home: Yes Safety Concerns: Feels Safe At This Time Assistive Devices: Glasses and Oxygen - Continuous Review of Systems All systems reviewed & are unremarkable except as noted in HPI & below. Physical Exam General: Chronically ill appearing 61 y/o/f resting in bed. Tearful, in mild distress. Answers questions appropriately. LLE: She has tenderness in groin, greater trochanter, knee, and calf. Has groin pain with passive log roll of hip. Passive hip flexion, ext/int rotation causes severe pain. Distally N/V/I. Results & Data Results & Data Laboratory Results Reviewed . Diagnostic Findings XRs showing mod-severe osteoarthritis changes in L hip joint . PG Care Time/CCT Total # of Minutes Spent Total Time Spent with Patient: Total time spent is greater than 50% in coordination of care (as documented) at patient's floor/unit and/or counseling patient: Supervising Physician Co-Signing Physician Notes Patient seen and examined. I agree with above note. Her pain is likely multifactorial but she does report that radiates down her leg to her calf and foot. This may be more of a radiculopathy. Consider pain management as an outpatient, as she has several comorbidities that likely would prevent her from a total joint replacement. The best means of relief may be Pain management as an outpatient. She had seen Dr. Gómez and Dr. Karl Velasquez in the past. She can follow-up with them for further treatment. She really wanted to be considered for hip r eplacement, but I advised her this to be difficult given her medical comorbidities and that it might not be the answer to her more diffuse pain. She can reserve that question for a joint replacement surgeon as an outpatient. Consider adjusting steroids for pain. Coding Level of Care Code 16784 Inpt Consult Level 3 Diagnoses Trochanteric bursitis of left hip M70.62 Lumbar radiculopathy M54.16 Degenerative joint disease of left hip M16.12
[2022-01-01] MEDS: WARFARIN SOD 5 MG TAB PO SCH (20:32)
[2022-01-01] MEDS: CHOLECALCIFEROL 1,000 UNITS 25 MCG TAB PO SCH (20:34)
[2022-01-01] MEDS: MIRTAZAPINE TAB 15 MG TAB PO SCH (20:34)
[2022-01-01] MEDS: traZODone HCL 50 MG TAB PO SCH (20:41)
[2022-01-02] MEDS ORDERED: COUGH DROP (SUGAR FREE) LOZ 24 LOZ/1 BOX BUCCAL PRN (04:06)
[2022-01-02] MEDS: oxyCODONE/ACETAMINOPHEN 5mg/325mg TAB PO PRN ×3 (04:12→13:49)
[2022-01-02] MEDS: busPIRone 15 MG TAB PO SCH (08:38)
[2022-01-02] MEDS: ISOSORBIDE MONO EXTENDED REL 30 MG TABCR PO SCH (08:38)
[2022-01-02] MEDS: LORazepam 0.5 MG TAB PO PRN ×2 (08:38→13:49)
[2022-01-02] MEDS: guaiFENesin 600 MG TABCR PO SCH (08:39)
[2022-01-02] MEDS: FLUoxetine HCL 20 MG CAP PO SCH (08:39)
[2022-01-02] MEDS: DICLOFENAC SOD 1% GEL 100 GM TUBE EXT SCH (08:39)
[2022-01-02] MEDS: dexAMETHasone 6 MG in SYRINGE 0 ML IV SCH (08:39)
[2022-01-02] MEDS: HEPARIN SOD 5,000 UNIT/0.5 ML VIAL SQ SCH (08:39)
[2022-01-02] MEDS: FLUTICASONE/VILANTEROL 100/25MCG 14 PUFFS/INHALER INH SCH (08:39)
[2022-01-02 08:50] LABS: INR 1.9 (0.9-1.1); Prothrombin Time 18.2 Seconds (9.0-12.0)
[2022-01-02 09:03] LABS: Creatinine Clr Calc Pharmacy 110.5 ml/min; Est GFR (African American) 111.6 ml/min; Est GFR (Non-African American) 96.3 ml/min
--- NOTE | 2022-01-02 11:20 | Hospitalist Progress Note ---
Date of Service January 02, 2022 Assessment & Plan (1) Acute exacerbation of chronic obstructive pulmonary disease: Plan: 61-year-old female w/ PMH of COPD, chronic respiratory failure on 3 liters oxygen, hypothyroidism, sleep apnea, paroxysmal atrial fibrillation on Coumadin [noncompliance], idiopathic cardiomyopathy, patent foramen ovale, grade I diastolic dysfunction, morbid obesity, irritable bowel syndrome, history of narcotic addiction, chronic bilateral low back pain, von Willebrand disease, depression, generalized anxiety disorder,multiple strokes, PTSD, noncompliance with medication, who lives alone, ambulates with a walker presented 12/26 to the ED with complaints of dry cough and worsening shortness of breath since few days [employer]OTBALL [employer]ACH associated with pleuritic chest pain/achy abdominal pain with dysuria. She is being managed for the following: Acute exacerbation of COPD likely secondary to noncompliance Acute on chronic respiratory failure with hypoxia and is complicated by recent Covid 19 infection Patient presented with worsening shortness of breath, dry cough, pleuritic chest pain that onset few days FO[employer]BALL [employer]ACH. Patient had not taken any medications including her inhalers couple of days prior to admission. Patient was requiring 3 L oxygen at bedside exam. Patient was recently in the hospital for COVID-19 infection and acute on chronic respiratory failure. Patient not vaccinated against Covid, Covid was positive on 11/21. Came back positive on 12/26 this admission. Patient had received dexamethasone 11/21 - 11/30 and remdesivir 11/21 - 11/25 in previous admission. Patient was also treated with doxycycline during that admission. Has been receiving dexamethasone We will continue to monitor. Incentive spirometer/proning as able. Pro-Chapincito and BNP negative, CRP mildly elevated. Respiratory symptoms are improved and she has been saturating normally on 3 L of nasal cannula oxygen Respiratory symptoms remain stable Complicated UTI Patient complains of achy abdominal pain with dysuria UA positive for UTI, urine culture positive for multidrug-resistant organism. Continue with cefepime 12/27. As needed Pyridium. Minimal symptoms without any fever and/or chills Finish the course of antibiotic Minimal hypogastric discomfort and has been getting Pyridium (2) Lab test positive for detection of COVID-19 virus: Plan: Has had recent COVID-19 virus infection on 21 November and received treatment with dexamethasone and remdesivir Has been getting dexamethasone during this admission We will finish the course of dexamethasone which will also help greater trochanteric bursitis (3) Acute on chronic respiratory failure with hypoxia: Plan: As above (4) Degenerative joint disease of left hip: Plan: Has been complaining of left hip and left knee pain History of left hip trochanteric bursitis Has been getting intravenous steroid, will give local diclofenac cream Pain medications have been changed to Percocet from Ultram X-ray of the left hip showed moderate to advanced osteoarthritis Advised to continue PT and pain medications as needed Appreciate orthopedic input and recommendation-no injection at this time and no surgical intervention (5) Trochanteric bursitis of left hip: Plan: Has been getting diclofenac sodium locally Will need to have outpatient follow-up for possible intra-articular injection (6) PAF (paroxysmal atrial fibrillation): Plan: Rate is controlled (7) Anticoagulated on Coumadin: Plan: Her admission INR was normal Coumadin has been restarted INR is 1.4 as of INR is 1.7 as of January 01, 2022 INR is 1.9 as of 01/02/2022 (8) Morbid obesity: (9) Anxiety and depression: Plan: Continue with as needed antianxiety medication Plan: Chronic medical conditions: History of CVA, embolic; anxiety/depression For history of CVA, embolic. on warfarin. Receiving extra dose of warfarin today. See above. For patient anxiety and depression, continue home medication including buspirone, fluoxetine, mirtazapine and as needed lorazepam Resume other home meds as appropriate. Judicious narcotic use given addiction history . DVT prophylaxis: c/w Coumadin. Heparin subcu until INR therapeutic. Full code 12/27-->Patient's primary contact and granddaughter Darlene [[phone]] given a phone call, left a voicemail to call us back and ask for Dr. Darnell. 12/28 --> patient's primary contact Darlene given a phone call, updated about present current status which was likely the result of noncompliance with her home medication, answered all her questions, she voiced understanding and was agreeable to the plan of care. Likely be transferred to [facility] this afternoon Admission and Anticipated Discharge Date Admission Date: December 27, 2021 Subjective 12/31/2021 Patient was seen and examined in medical telemetry unit She has been complaining of pain all over the body and especially the left hip and knee and lower abdomen Has not been participating in PT and OT due to increasing pain We will change her pain medications and possible discharge tomorrow January 01, 2022 The patient was seen and examined in medical telemetry unit She still complains to have pain in the left hip and does not come out of bed due to fear of pain Also has some discomfort in the lower abdomen Denies any other significant symptoms 01/02/2022 The patient was seen and examined in medical telemetry unit She still complains to have left hip pain and is afraid to put any pressure on it Complains to have minimal lower abdominal discomfort Denies any other significant symptoms Review of Systems Review of Systems: All systems reviewed and are unremarkable except as noted below Musculoskeletal: Left hip and left knee pain-no evidence of acute arthritis involving the joints Physical Exam Physical Exam: Lying in bed with pain in multiple areas Constitutional: well developed, well nourished, + ill appearing and + morbidly obese Eyes: PERRL, conjunctivae normal, anicteric sclerae ENMT: external ear and nose normal, oropharynx normal Neck: trachea midline, no thyromegaly Respiratory: no respiratory distress Auscultation: + diminished lung sounds and + crackles (Minimal crackles at the bases) Cardiovascular: Rate/Rhythm: regular rate and regular rhythm; not tachycardic Heart Sounds: normal S1 and normal S2; no murmur Extremities: + edema (1+ edema bilaterally) Gastrointestinal (Abdomen): Inspection/Auscultation: normal bowel sounds; abdomen not distended Percussion/Palpation: abdomen soft; abdomen nontender Musculoskeletal: Hip: + limited ROM of hip (Left hip with pain) Neurologic: Alert, awake and oriented x3. Remains generally weak and lethargic Results & Data Results & Data ([facility]) Vital Signs (Past 12 Hours) Vital Signs Temp Pulse Resp BP Pulse Ox 01/02/22 11:06 36.5 C 80 20 101/64 92 01/02/22 06:24 36.3 C L 72 20 109/69 91 01/02/22 02:59 36.7 C 86 20 117/73 94 Laboratory Results BMP 01/02/22 07:47 Creatinine 0.64 Cardiac Enzymes 01/01/22 Range/Units 11:33 Troponin I < 0.03 (0-0.04) ng/ml Medications Administered Current Inpatient Medications Acetaminophen (Acetaminophen 325 Mg Tab) 650 mg PO Q6H PRN PRN Reason: Fever/pain Stop: 01/25/22 23:48 Last Admin: 12/29/21 13:17 Dose: 650 mg Documented by: Buspirone HCl (Buspirone 5 Mg Tab) 10 mg PO BID@1400,2100 [facility] Stop: 01/26/22 13:59 Last Admin: 01/01/22 20:33 Dose: 10 mg Documented by: Buspirone HCl (Buspirone 15 Mg Tab) 15 mg PO QAM [facility] [place] Stop: 01/26/22 08:59 Last Admin: 01/02/22 08:38 Dose: 15 mg Documented by: Diclofenac Sodium (Diclofenac Sod 1% Gel 100 Gm Tube) 4 gm EXT BID [facility] Stop: 01/30/22 10:29 Last Admin: 01/02/22 08:39 Dose: 4 gm Documented by: Fluoxetine HCl (Fluoxetine Hcl 20 Mg Cap) 20 mg PO QAM [facility] Stop: 01/26/22 08:59 Last Admin: 01/02/22 08:39 Dose: 20 mg Documented by: Fluticasone/Vilanterol (Fluticasone/Vilanterol 100/25mcg 14 Puffs/Inhaler) 1 puffs INH DAILY [facility] Stop: 01/27/22 08:59 Last Admin: 01/02/22 08:39 Dose: 1 puffs Documented by: Guaifenesin (Guaifenesin 600 Mg Tabcr) 600 mg PO Q12 [facility] [place] Stop: 01/26/22 00:24 Last Admin: 01/02/22 08:39 Dose: 600 mg Documented by: Heparin Sodium (Porcine) (Heparin Sod 5,000 Unit/0.5 Ml Vial) 5,000 units SQ Q12 [facility] [place] Stop: 01/27/22 20:59 Last Admin: 01/02/22 08:39 Dose: 5,000 units Documented by: Dexamethasone 6 mg/ Syringe 1.5 mls @ 1 mls/min IV DAILY [facility] [place] Stop: 01/26/22 08:59 Last Admin: 01/02/22 08:39 Dose: 1 mls/min Documented by: Cefepime HCl 2,000 mg/ Syringe 20 mls @ 5 mls/min IV Q12H [facility]; Protocol Stop: 01/06/22 10:59 Last Admin: 01/01/22 22:39 Dose: 5 mls/min Documented by: Promethazine HCl 12.5 mg/ (Sodium Chloride) 50.5 mls @ 202 mls/hr IV Q6H PRN PRN Reason: Nausea And Vomiting Stop: 01/26/22 04:46 Isosorbide Mononitrate (Isosorbide [place] Extended Rel 30 Mg Tabcr) 30 mg PO QAM [facility] [place] Stop: 01/26/22 08:59 Last Admin: 01/02/22 08:38 Dose: 30 mg Documented by: Levalbuterol HCl (Levalbuterol Tartrate 15 Gm Hfa.Aer.Ad) 2 puffs INH QIDR PRN PRN Reason: wheezing/sob Stop: 01/26/22 06:59 Last Admin: 01/01/22 16:46 Dose: 2 puffs Documented by: Lorazepam (Lorazepam 0.5 Mg Tab) 0.5 mg PO TID PRN PRN Reason: Anxiety Stop: 01/26/22 04:46 Last Admin: 01/02/22 08:38 Dose: 0.5 mg Documented by: Menthol (Cough Drop (Sugar Free) Jerad 24 Jerad/1 Box) 1 jerad BUCCAL Q2H PRN PRN Reason: Cough Stop: 02/01/22 04:05 Last Admin: 01/02/22 06:04 Dose: 1 jerad Documented by: Mirtazapine (Mirtazapine Tab 15 Mg Tab) 7.5 mg PO [facility] Stop: 01/26/22 20:59 Last Admin: 01/01/22 20:34 Dose: 7.5 mg Documented by: Nystatin (Nystatin Powder 15gm Btl) 1 appln EXT BID PRN PRN Reason: Affected Skin Folds Stop: 01/26/22 11:50 Last Admin: 01/01/22 05:14 Dose: 1 appln Documented by: Oxycodone/Acetaminophen (Oxycodone/Acetaminophen 5mg/325mg Tab) 1 tab PO Q4H PRN PRN Reason: Pain Stop: 01/14/22 13:18 Last Admin: 01/02/22 08:38 Dose: 1 tab Documented by: Trazodone HCl (Trazodone Hcl 50 Mg Tab) 150 mg PO [facility] Stop: 01/26/22 20:59 Last Admin: 01/01/22 20:41 Dose: 150 mg Documented by: Vitamin D (Cholecalciferol 1,000 Units 25 Mcg Tab) 1,000 units PO HS MARY Stop: 01/27/22 20:59 Last Admin: 01/01/22 20:34 Dose: 1,000 units Documented by: Warfarin Sodium (Warfarin Sod 5 Mg Tab) 5 mg PO QPM [facility]ARY Stop: 01/26/22 10:59 Last Admin: 01/01/22 20:32 Dose: 5 mg Documented by:
[2022-01-02] MEDS: CEFEPIME 2,000 MG in SYRINGE 0 ML IV SCH (12:12)
[2022-01-02] MEDS ORDERED: CIPROFLOXACIN 500 MG TAB PO ONE (12:15)
[2022-01-02] MEDS: busPIRone 5 MG TAB PO SCH (13:49)
--- NOTE | 2022-01-03 08:54 | Discharge Summary ---
Date of Service January 03, 2022 Admission HPI Per Admitting Provider History obtained from patient and records. 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 Last confinement last month for COPD exacerbation secondary to COVID-19 infection status post Decadron and remdesivir Rx. Patient also received ceftriaxone for Proteus UTI. COVID-19 test was negative prior to discharge to rehab facility. Patient discharged home last week. Few days ago, patient noted blinding headache symptoms. Dry cough symptoms with worsening shortness of breath. Pleuritic chest pain with coughing. Achy abdominal pain with dysuria. Not sure about recent sick contacts given recent rehab stay. Patient has not received COVID-19 vaccination. Patient seen at PCPs office yesterday. Diffuse wheezing on exam. Patient directed to ER for evaluation. Albuterol and Decadron given at the ER for COPD exacerbation. MEDICAL HISTORY: As above. SURGERIES: Cholecystectomy, hysterectomy, hernia repair. FAMILY HISTORY: Heart disease. Schizophrenia 6PERSONAL AND SOCIAL HISTORY: Past tobacco abuse. No chronic intake of alcoholic beverages. On disability. Admission Exam Per Admitting Provider Physical Exam: GENERAL: uncomfortable, anxious, obese, minimal respiratory distress SKIN: Normal color, warm HEENT: [place] palpebral conjunctivae, no ptosis, dry buccal mucosa, nasal cannula in place NECK : Supple, no tenderness CHEST : Decreased breath sounds, diffuse expiratory wheezes, no tenderness HEART : RRR, no obvious murmurs ABDOMEN: Some distention, minimal hypogastric tenderness EXTREMITIES : Minimal LE swelling, no LE tenderness, no other conspicuous deformities noted NEUROLOGIC : Coherent, no facial asymmetry, no other gross focality Principal Diagnosis Acute exacerbation of COPD, complicated UTI, advanced osteoarthritis involving the left hip, PAF on Coumadin, history of embolic CVA, anxiety/depression, o besity, recent Covid 19 infection Discharge Exam Lying in bed with pain in multiple areas Constitutional well developed, well nourished, + ill appearing and + morbidly obese Eyes PERRL, conjunctivae normal, anicteric sclerae ENMT external ear and nose normal, oropharynx normal Neck trachea midline, no thyromegaly Respiratory no respiratory distress Auscultation: + diminished lung sounds and + crackles (Minimal crackles at the bases) Cardiovascular Rate/Rhythm: regular rate and regular rhythm; not tachycardic Heart Sounds: normal S1 and normal S2; no murmur Extremities: + edema (1+ edema bilaterally) Gastrointestinal (Abdomen) Inspection/Auscultation: normal bowel sounds; abdomen not distended Percussion/Palpation: abdomen soft; abdomen nontender Musculoskeletal Hip: + limited ROM of hip (Left hip with pain) Discharge Data Allergies Allergy/AdvReac Type Severity Reaction Status Date / Time aspirin Allergy Unknown TAKES Verified 12/26/21 20:49 COUMADIN salicylates AdvReac Unknown ?DUE TO Verified 12/26/21 20:49 COUMADIN? Consultations 12/26/21 22:39 ED Decision to Admit Stat 01/01/22 15:10 Consult Orthopedic Surgery Routine Ordered Studies 12/26/21 23:49 CT abd pelvis wo con Urgent CT head/brain wo con Urgent 12/27/21 21:55 CT abd pelvis wo con Urgent Hospital Course (1) Acute exacerbation of chronic obstructive pulmonary disease: 61-year-old female w/ PMH of COPD, chronic respiratory failure on 3 liters oxygen, hypothyroidism, sleep apnea, paroxysmal atrial fibrillation on Coumadin [noncompliance], idiopathic cardiomyopathy, patent foramen ovale, grade I diastolic dysfunction, morbid obesity, irritable bowel syndrome, history of narcotic addiction, chronic bilateral low back pain, von Willebrand disease, depression, generalized anxiety disorder,multiple strokes, PTSD, noncompliance with medication, who lives alone, ambulates with a walker presented 12/26 to the ED with complaints of dry cough and worsening shortness of breath since few days [employer] associated with pleuritic chest pain/achy abdominal pain with dysuria. She is being managed for the following: Acute exacerbation of COPD likely secondary to noncompliance Acute on chronic respiratory failure with hypoxia and is complicated by recent Covid 19 infection Patient presented with worsening shortness of breath, dry cough, pleuritic chest pain that onset few days [employer]. Patient had not taken any medications including her inhalers couple of days prior to admission. Patient was requiring 3 L oxygen at bedside exam. Patient was recently in the hospital for COVID-19 infection and acute on chronic respiratory failure. Patient not vaccinated against Covid, Covid was positive on 11/21. Came back positive on 12/26 this admission. Patient had received dexamethasone 11/21 - 11/30 and remdesivir 11/21 - 11/25 in previous admission. Patient was also treated with doxycycline during that admission. Has been receiving dexamethasone We will continue to monitor. Incentive spirometer/proning as able. Pro-Chapincito and BNP negative, CRP mildly elevated. Respiratory symptoms are improved and she has been saturating normally on 3 L of nasal cannula oxygen Respiratory symptoms remain stable Complicated UTI Patient complains of achy abdominal pain with dysuria UA positive for UTI, urine culture positive for multidrug-resistant organism. Continue with cefepime 12/27. As needed Pyridium. Minimal symptoms without any fever and/or chills Finish the course of antibiotic Minimal hypogastric discomfort and has been getting Pyridium (2) Lab test positive for detection of COVID-19 virus: Has had recent COVID-19 virus infection on 21 November and received treatment with dexamethasone and remdesivir Has been getting dexamethasone during this admission We will finish the course of dexamethasone which will also help greater trochanteric bursitis (3) Acute on chronic respiratory failure with hypoxia: As above (4) Degenerative joint disease of left hip: Has been complaining of left hip and left knee pain History of left hip trochanteric bursitis Has been getting intravenous steroid, will give local diclofenac cream Pain medications have been changed to Percocet from Ultr[facility] X-ray of the left hip showed moderate to advanced osteoarthritis Advised to continue PT and pain medications as needed Appreciate orthopedic input and recommendation-no injection at this time and no surgical intervention (5) Trochanteric bursitis of left hip: Has been getting diclofenac sodium locally Will need to have outpatient follow-up for possible intra-articular injection (6) PAF (paroxysmal atrial fibrillation): Rate is controlled (7) Anticoagulated on Coumadin: Her admission INR was normal Coumadin has been restarted INR is 1.4 as of INR is 1.7 as of January 01, 2022 INR is 1.9 as of 01/02/2022 (8) Morbid obesity: (9) Anxiety and depression: Continue with as needed antianxiety medication Chronic medical conditions: History of CVA, embolic; anxiety/depression For history of CVA, embolic. on warfarin. Receiving extra dose of warfarin today. See above. For patient anxiety and depression, continue home medication including buspirone, fluoxetine, mirtazapine and as needed lorazepam Resume other home meds as appropriate. Judicious narcotic use given addiction history . DVT prophylaxis: c/w Coumadin. Heparin subcu until INR therapeutic. Full code 12/27-->Patient's primary contact and granddaughter Darlene [[phone]] given a phone call, left a voicemail to call us back and ask for Dr. Darnell. 12/28 --> patient's primary contact Darlene given a phone call, updated about present current status which was likely the result of noncompliance with her home medication, answered all her questions, she voiced understanding and was agreeable to the plan of care. Likely be transferred to [facility] this afternoon Total Time Total Time Spent Total Time Spent (In Minutes): 45 minutes Discharge Plan Discharge Items Patient Disposition: Transfer Inpatient Rehab Fac Reason For Visit: RESP FAILURE, COVID Discharge Diagnosis: Acute exacerbation of COPD, complicated UTI, advanced osteoarthritis involving the left hip, PAF on Coumadin, history of embolic CVA, anxiety/depression, obesity, recent Covid 19 infection Condition on Discharge: Fair Activity: As commented below Activity Comment: Continue PT and OT Non-emergency contact: Primary Care Provider Call non-emergency contact if: you have any medication questions and your symptoms worsen Follow-up/Referrals: Roger Alexandra MD [Primary Care Provider] - (Please make an appointment with your primary care provider within 7 days following discharge from the facility) Diet: Heart Healthy Addtl Attending Provider Instructions: Please take precautions to avoid fall Take participate in physical therapy Try to take pain medications 20 to 30 minutes before therapy so that your pain is less Has been on Coumadin and will need to check INR periodically Pending Studies at Discharge: No Stand-Alone Forms: My [facility] Skilled Items Patient informed of condition?: Yes DNR: No Discharge Level of Care: Acute rehab Communicable Disease: No Discharge Prognosis: Stable Lines: None Urinary Catheter: No Medications and DC Order Prescriptions: New oxycodone-acetaminophen [Percocet] 5-325 mg Tablet 1 tab PO Q4H PRN (Reason: pain) 5 Days Qty: 12 RF: 0 diclofenac sodium [Voltaren Arthritis Pain] 1 % Gel 4 g EXT BID 10 Days Qty: 50 RF: 0 ciprofloxacin HCl 500 mg tablet 500 mg PO BID Qty: 6 RF: 0 phenazopyridine [Pyridium] 200 mg tablet 200 mg PO TID PRN (Reason: pain) 3 Days Qty: 7 RF: 0 dexamethasone 6 mg tablet 6 mg PO DAILY Qty: 3 RF: 0 Continued cholecalciferol (vitamin D3) 25 mcg (1,000 unit) capsule 25 mcg PO HS RF: 0 isosorbide mononitrate 30 mg Tablet Extended Release 24 Hr 30 mg PO QAM Qty: 0 RF: 0 trazodone 150 mg tablet 150 mg PO HS RF: 0 nystatin [Nyamyc] 100,000 unit/gram powder 1 applic TOPICAL BID RF: 0 fluoxetine 20 mg capsule 20 mg PO QAM RF: 0 buspirone 15 mg Tablet 15 mg PO QAM Qty: 30 RF: 0 buspirone 5 mg Tablet 10 mg PO BID@1400,2100 Qty: 60 RF: 0 budesonide-formoterol [Symbicort] 80-4.5 mcg/actuation HFA aerosol inhaler 2 puff INHALATION BID RF: 0 warfarin 5 mg tablet 5 mg PO QPM RF: 0 mirtazapine 7.5 mg tablet 7.5 mg PO HS RF: 0 lorazepam 0.5 mg tablet 0.5 mg PO TID PRN (Reason: Anxiety) RF: 0 cholecalciferol (vitamin D3) 1,250 mcg (50,000 unit) capsule 1,250 mcg PO WK RF: 0 Discontinued tramadol 100 mg tablet 100 mg PO Q8 PRN (Reason: Pain) RF: 0 Discharge Orders: Discharge Order (Routine); Ordered 01/02/22 Ordered By: Sonia Myers Admission Data Admit Date/Time: 12/27/21 02:02 Attending Provider: Sonia Myers Admit Provider: Israel Jiang Primary Care Provider: Roger Alexandra Other Providers: Israel Jiang ; [facility] ; Cherie Darnell ; Damon Krueger ; Tamra Monzon ; Alfredo Bonilla ; Kim Velasquez ; Musa Ball ; Lolis Spencer ; Airam Hope ; Jerry Gómez ; Adarsh Ascencio ; Aly Colby ; Aly Velasco Other Interventions: Discharge Summary Assessment (RN) Last Done: 01/02/22 16:06
== END 2022-01-02 17:51 | DRG 177 ==
LOC: ED 17:25 → SUATTDRO 12-27 02:02 → 2E 12-27 02:02 → 2S 12-29 17:29 → 2N 12-31 01:01
DX: U07.1 COVID-19; Z91.14 Patient's other noncompliance with medication regimen; M70.62 Trochanteric bursitis, left hip; J96.21 Acute and chronic respiratory failure with hypoxia; E03.9 Hypothyroidism, unspecified; Z68.41 Body mass index [BMI] 40.0-44.9, adult; M16.12 Unilateral primary osteoarthritis, left hip; Z88.6 Allergy status to analgesic agent; F41.8 Other specified anxiety disorders; B96.4 Proteus (mirabilis) (morganii) as the cause of diseases classified elsewhere; Z87.891 Personal history of nicotine dependence; Z86.73 Personal history of transient ischemic attack (TIA), and cerebral infarction without residual deficits; D68.0 Von Willebrand disease; J44.1 Chronic obstructive pulmonary disease with (acute) exacerbation; E66.01 Morbid (severe) obesity due to excess calories; M54.16 Radiculopathy, lumbar region; Z79.01 Long term (current) use of anticoagulants; Q21.1 Atrial septal defect; I42.9 Cardiomyopathy, unspecified; N39.0 Urinary tract infection, site not specified

== ENCOUNTER 2022-08-20 14:19 | Inpatient (IN) ==
--- NOTE | 2022-08-20 15:27 | Emergency Department Note ---
History of Present Illness General Chief complaint: Shortness of Breath/Dyspnea Stated complaint: CHEST PAIN, SOB Time Seen by Provider: 08/20/22 14:51 Source: patient Mode of arrival: ambulatory Limitations: no limitations History of Present Illness Provider complaint: chest pain, shortness of breath This is a 62-year-old female presents emergency department after being referred from her intensive care ambulance paramedic, Dr. Bonilla due to concern for chest pain and shortness of breath. Patient with complicated past medical history including COPD, CVA, and prior IA. Patient states on Wednesday evening she coughed and sneezed vigorously and noticed a small amount of blood in the sputum. She does take Coumadin due to her history of strokes per her report and states her last INR was 2.8. She states because of seeing blood she stopped taking her Coumadin the last 2 days. She states she contacted her intensive care ambulance paramedic with the help of her granddaughter who helps with her care and her appointment from Wednesday was moved up to today. She also verbalized to the intensive care ambulance paramedic today that she was having some upper chest discomfort. She denies any other change in medications. She does admit to eating chips recently despite a history of congestive heart failure. She does wear oxygen at home typically 4 to 5 L chronically. She states her breathing is usually worse with exertion and worse laying flat. She denies any nausea, vomiting, or abdominal pain. She states she does have MDIs and nebulizers at home but does not use them. Home Medications Medication Instructions Recorded Confirmed Type albuterol sulfate 5 mg/mL(0.5 %) 2.5 mg inhalation DIRECTED PRN 08/20/22 08/20/22 History solution for nebulization Shortness Of Breath Or Wheezing albuterol sulfate 90 mcg/actuation 2 puff inhalation QID 08/20/22 08/20/22 History aerosol inhaler baclofen 10 mg tablet 10 mg PO TID PRN Muscle Pain 08/20/22 08/20/22 History buspirone 10 mg tablet 20 mg PO AMHS 08/20/22 08/20/22 History cholecalciferol (vitamin D3) 25 25 mcg PO DAILY 08/20/22 08/20/22 History mcg (1,000 unit) capsule (Vitamin D3) fluticasone fur. 100 mcg-umeclid 1 ea inhalation QAM 08/20/22 08/20/22 History 62.5 mcg-vilant 25 mcg inhalat.powder (Trelegy Ellipta) furosemide 20 mg tablet (Lasix) 20 mg PO DAILY PRN .SWELLING IN 08/20/22 1 History LOWER LEGS gabapentin 300 mg capsule 300 mg PO HS 08/20/22 08/20/22 History isosorbide mononitrate 30 mg 30 mg PO DAILY 08/20/22 08/20/22 History tablet,extended release 24 hr lorazepam 0.5 mg tablet 0.5 mg PO TID PRN Anxiety 08/20/22 08/20/22 History mirtazapine 30 mg tablet 30 mg PO HS 08/20/22 08/20/22 History nystatin 100,000 unit/gram topical 1 applic topical BID 08/20/22 08/20/22 History powder (Nyamyc) tramadol 100 mg tablet 100 mg PO Q8 PRN .MOD-SEVERE PAIN 08/20/22 08/20/22 History warfarin 5 mg tablet 5 mg PO QPM 08/20/22 08/20/22 History Allergies Allergy/AdvReac Type Severity Reaction Status Date / Time aspirin Allergy Unknown TAKES Verified 08/20/22 19:34 COUMADIN salicylates AdvReac Unknown ?DUE TO Verified 08/20/22 19:34 COUMADIN? Past Med/Surg History Medical History Anxiety and depression Atrial fibrillation Atypical chest pain Cerebrovascular disease Chronic pain on daily narcotics Complicated bereavement History of stroke "embolic stroke, underlying PFO" Morbid obesity PAF (paroxysmal atrial fibrillation) Submucosal lesion of stomach Noted on EGD 11/06/20 Supratherapeutic INR Surgical History Status post cholecystectomy Status post hysterectomy Family History Other Heart disease Social History Smoking Status: Never smoker Tobacco Type: Cigarettes Second Hand Exposure: No; Do You Dip or Chew Tobacco: No; Tobacco Cessation Education Requested by Patient: No Hx Alcohol Use: No Hx Substance Use: No Preferred Language: Andorran Communication Ability: Effective Um Specialist Required: No Beliefs That Will Affect Care: None marital status: / Current Living Situation: Alone Current Living Situation Comment: in march Other Information That Helps Us Care for You: No Feels Safe at Home: Yes Safety Concerns: Feels Safe At This Time Assistive Devices: Oxygen - Continuous and Walker Review of Systems A total of 10 systems reviewed and were otherwise negative All systems reviewed & are unremarkable except as noted in HPI & below Physical Exam Vital Signs Vital Signs - 24 hr 08/20/22 14:38 08/20/22 14:38 08/20/22 14:38 Temperature 36.8 C 36.8 C Temperature Source Oral Oral Pulse Rate 116 H Pulse Rate [Apical] 116 H Pulse Rhythm Regular Pulse Strength Normal Respiratory Rate 25 H 21 Respiratory Effort / Characteristics Respiratory Depth Blood Pressure 141/112 H Blood Pressure [Right Arm] Blood Pressure Mean 121 Blood Pressure Mean [Right Arm] Pulse Oximetry 94 94 Oxygen Delivery Method Non-rebreather Non-rebreather Non-rebreather Oxygen Flow Rate 15 15 15 Sepsis Recent Fever Within 48 Hours No Sepsis New/Unexplained Change in Mental Status N/A Sepsis Action Taken by Nursing No Action Required 08/20/22 15:00 08/20/22 17:00 Temperature Temperature Source Pulse Rate Pulse Rate [Apical] 106 H 106 H Pulse Rhythm Pulse Strength Respiratory Rate 22 25 H Respiratory Effort / Characteristics Non-Labored Spontaneous Respiratory Depth Normal Blood Pressure Blood Pressure [Right Arm] 119/98 141/105 H Blood Pressure Mean Blood Pressure Mean [Right Arm] 105 117 Pulse Oximetry 95 96 Oxygen Delivery Method Non-rebreather Non-rebreather Oxygen Flow Rate 15 10 Sepsis Recent Fever Within 48 Hours Sepsis New/Unexplained Change in Mental Status Sepsis Action Taken by Nursing GENERAL: alert, well appearing, well nourished, no distress, non-toxic EYE EXAM: normal conjunctiva, PERRL and EOM's grossly intact OROPHARYNX: no exudate, no erythema, lips, buccal mucosa, and tongue normal and mucous membranes are moist NECK: supple, no nuchal rigidity, no adenopathy, non-tender LUNGS: Clear to auscultation. Normal chest wall mechanics, no w/r/r HEART: no murmurs, S1 normal and S2 normal ABDOMEN: abdomen soft, non-tender, normo-active bowel sounds, no masses, no rebound or guarding. BACK: Back is symmetrical on inspection and there is no deformity, no midline tenderness, no CVA tenderness. SKIN: no rashes and no bruising UPPER EXTREMITIES: upper extremities are grossly normal. FROM, nml pulses b/l. LOWER EXTREMITIES: No pitting edema. FROM, nml pulses b/l. NEURO EXAM: Normal sensorium, cranial nerves II-XII grossly intact, normal speech, no gross weakness of arms, no gross weakness of legs. Gross sensation intact. Course Course 1545: Pt states she still has pain and SOB. 1644: Patient requesting ativan which she takes at home. 1835: Pt requesting tramadol for headache. Patient states she does not feel any improvement following the breathing treatments and does not wish to try any additionally. She states this is why she does not take them at home. We discussed steroids for possible COPD exacerbation and she declined stating that the steroids "make her crazy". Administered Medications Acetaminophen (Acetaminophen 325 Mg Tab) 650 mg PO Q4H PRN PRN Reason: Pain or Fever Stop: 09/20/22 00:08 Last Admin: 08/21/22 21:00 Dose: 650 mg Documented By: Admin: 08/21/22 13:34 Dose: 650 mg Documented By: Admin: 08/21/22 01:31 Dose: 650 mg Documented By: LYNN Baclofen (Baclofen 10 Mg Tab) 10 mg PO TID PRN PRN Reason: Muscle Pain Stop: 09/20/22 00:08 Last Admin: 08/21/22 20:59 Dose: 10 mg Documented By: Admin: 08/21/22 08:26 Dose: 10 mg Documented By: NOMAN Buspirone HCl (Buspirone 5 Mg Tab) 20 mg PO [facility] MARY Stop: 09/20/22 00:08 Last Admin: 08/21/22 21:00 Dose: 20 mg Documented By: Admin: 08/21/22 08:20 Dose: 20 mg Documented By: Admin: 08/21/22 01:32 Dose: 20 mg Documented By: LYNN Fluticasone Furoate (Fluticasone Furoate 100mcg 14 Puffs/Inhaler) 1 puffs INH DAILY MARY Stop: 09/20/22 08:59 Last Admin: 08/21/22 08:18 Dose: 1 puffs Documented By: NOMAN Gabapentin (Gabapentin 300 Mg Cap) 300 mg PO HS MARY Stop: 09/20/22 00:08 Last Admin: 08/21/22 21:00 Dose: 300 mg Documented By: Admin: 08/21/22 01:31 Dose: 300 mg Documented By: LYNN Guaifenesin (Guaifenesin 600 Mg Tabcr) 600 mg PO Q12 MARY Stop: 09/20/22 00:08 Last Admin: 08/21/22 21:00 Dose: 600 mg Documented By: Admin: 08/21/22 08:20 Dose: 600 mg Documented By: Admin: 08/21/22 01:33 Dose: 600 mg Documented By: LYNN Ipratropium [place] (Ipratropium [place] Neb Soln 0.02% 2.5 Ml Vial) 0.5 mg INH Q6R MARY Stop: 09/19/22 15:29 Last Admin: 08/22/22 00:55 Dose: 0.5 mg Documented By: Admin: 08/21/22 19:57 Dose: 0.5 mg Documented By: Admin: 08/21/22 15:03 Dose: 0.5 mg Documented By: Admin: 08/21/22 13:14 Dose: Not Given Documented By: Admin: 08/21/22 07:05 Dose: Not Given Documented By: Admin: 08/21/22 01:41 Dose: 0.5 mg Documented By: Admin: 08/20/22 23:29 Dose: Not Given Documented By: Admin: 08/20/22 17:31 Dose: 0.5 mg Documented By: ORLANDO Isosorbide Mononitrate (Isosorbide [place] Extended Rel 30 Mg Tabcr) 30 mg PO DAILY MARY Stop: 09/20/22 08:59 Last Admin: 08/21/22 08:18 Dose: 30 mg Documented By: NOMAN Levalbuterol HCl (Levalbuterol 1.25mg/0.5ml Neb) 1.25 mg INH Q6R MARY Stop: 09/19/22 15:29 Last Admin: 08/22/22 00:56 Dose: Not Given Documented By: Admin: 08/21/22 19:57 Dose: 1.25 mg Documented By: Admin: 08/21/22 15:03 Dose: 1.25 mg Documented By: Admin: 08/21/22 13:14 Dose: Not Given Documented By: Admin: 08/21/22 07:05 Dose: Not Given Documented By: Admin: 08/21/22 01:41 Dose: 1.25 mg Documented By: Admin: 08/20/22 23:29 Dose: Not Given Documented By: Admin: 08/20/22 16:53 Dose: 1.25 mg Documented By: QGV Lorazepam (Lorazepam 0.5 Mg Tab) 0.5 mg PO TID PRN PRN Reason: Anxiety Stop: 09/20/22 00:08 Last Admin: 08/21/22 20:59 Dose: 0.5 mg Documented By: Admin: 08/21/22 12:45 Dose: 0.5 mg Documented By: Admin: 08/21/22 08:26 Dose: 0.5 mg Documented By: NOMAN Mirtazapine (Mirtazapine Tab 15 Mg Tab) 30 mg PO HS MARY Stop: 09/20/22 00:08 Last Admin: 08/21/22 21:00 Dose: 30 mg Documented By: Admin: 08/21/22 01:33 Dose: 30 mg Documented By: LYNN Prednisone (Prednisone 20 Mg Tab) 40 mg PO DAILY MARY Stop: 08/25/22 08:59 Last Admin: 08/21/22 08:20 Dose: 40 mg Documented By: NOMAN Tramadol HCl (Tramadol Hcl 50 Mg Tablet) 50 mg PO Q4H PRN PRN Reason: .MOD-SEVERE PAIN (4-10) Stop: 09/20/22 00:08 Last Admin: 08/22/22 00:20 Dose: 50 mg Documented By: Admin: 08/21/22 18:40 Dose: 50 mg Documented By: Admin: 08/21/22 14:08 Dose: 50 mg Documented By: Admin: 08/21/22 09:59 Dose: 50 mg Documented By: Admin: 08/21/22 05:52 Dose: 50 mg Documented By: LYNN Umeclidinium/Vilanterol (Umeclidinium/Vilanterol 62.5/25mcg 7 Puffs/Inhaler) 1 puffs INH DAILY MARY Stop: 09/20/22 08:59 Last Admin: 08/21/22 08:20 Dose: 1 puffs Documented By: NOMAN Warfarin Sodium (Warfarin Sod 5 Mg Tab) 5 mg PO TODAY@1600 [facility] Stop: 09/20/22 15:59 Last Admin: 08/21/22 17:40 Dose: 5 mg Documented By: NOMAN Discontinued Medications Al Hydrox/Mg Hydrox/Simethicone (Aluminum/Magnesium Susp 30 Ml Udc) 15 ml PO NOW STA Stop: 08/20/22 17:24 Last Admin: 08/20/22 17:44 Dose: Not Given Documented By: QGV Acetaminophen (Ofirmev) 1,000 mg in 100 mls @ 400 mls/hr IV NOW STA Stop: 08/20/22 17:37 Last Admin: 08/20/22 17:44 Dose: Not Given Documented By: QGV Famotidine (Pepcid 20mg Iv Push) 20 mg in 5 mls @ 2.5 mls/min IV NOW STA Stop: 08/20/22 17:36 Last Admin: 08/20/22 17:44 Dose: 2.5 mls/min Documented By: QGV Methylprednisolone 40 mg/ (Syringe) 0.64 mls @ 1.5 mls/min IV NOW STA Stop: 08/20/22 19:31 Last Admin: 08/20/22 20:13 Dose: 1.5 mls/min Documented By: JAXON Levalbuterol HCl (Levalbuterol Hcl 1.25 Mg/3 Ml Neb) Confirm Administered Dose 1.25 mg .ROUTE .STK-MED ONE Stop: 08/22/22 00:54 Last Admin: 08/22/22 00:56 Dose: 1.25 mg Documented By: BRANDY Lorazepam (Lorazepam 0.5 Mg Tab) 0.5 mg PO NOW STA Stop: 08/20/22 17:24 Last Admin: 08/20/22 17:37 Dose: 0.5 mg Documented By: QGV Lorazepam (Lorazepam 0.5 Mg Tab) 0.5 mg PO NOW STA Stop: 08/20/22 20:53 Last Admin: 08/20/22 22:00 Dose: Not Given Documented By: BS Lorazepam (Lorazepam 2 Mg/2 Ml Syr) 0.25 mg IV NOW STA; Protocol Stop: 08/20/22 21:16 Last Admin: 08/20/22 21:36 Dose: 0.25 mg Documented By: HUBER Miscellaneous (Xopenex/Atrovent 1.25mg/0.5mg Neb Combo) 1 each NEB Q6R STA; Protocol Stop: 08/20/22 16:26 Last Admin: 08/20/22 16:54 Dose: Not Given Documented By: QGV Nitroglycerin (Nitroglycerin Sl 0.4 Mg/Tab Tab) 0.4 mg SL NOW STA Stop: 08/20/22 21:17 Last Admin: 08/20/22 23:29 Dose: Not Given Documented By: JAXON Tramadol HCl (Tramadol Hcl 50 Mg Tablet) 100 mg PO NOW STA Stop: 08/20/22 18:50 Last Admin: 08/20/22 19:17 Dose: 100 mg Documented By: JAXON Medical Decision Making Differential Diagnosis Differential diagnoses includes but is not limited to acute coronary syndrome, myocardial infarction, pericarditis, pulmonary embolus, aortic dissection, pneumonia, pneumothorax, musculoskeletal, shingles, esophageal. Medical Records Attestation: I reviewed the patient's medical records. Home Medications Current Medication List: was personally reviewed by me Laboratory Data Attestation: I reviewed the patient's lab results. Result diagrams: 08/21/22 08:01 08/21/22 08:01 Lab Results 08/20/22 08/20/22 08/20/22 Range/Units 13:00 14:35 14:35 WBC 8.46 (4.8-10.8) K/ul RBC 4.42 (3.93-5.22) M/uL Hgb 11.6 L (12.0-16.0) g/dl Hct 38.1 (34.1-44.9) % MCV 86.2 (80.0-100.0) fL MCH 26.2 (25.0-34.0) pg MCHC 30.4 L (32.0-36.0) g/dL RDW Std Deviation 57.8 H (36.4-46.3) fL RDW Coeff of Ursula 18.2 H (11.5-14.5) % Plt Count 497 H (130-400) K/uL MPV 8.9 L (9.4-12.3) fL Immature Gran % (Auto) 0.6 % Neut % (Auto) 52.7 % Lymph % (Auto) 35.8 % [place] % (Auto) 7.8 % Eos % (Auto) 2.5 % Baso % (Auto) 0.6 % Neut # (Auto) 4.46 (1.4-6.5) K/uL Lymph # (Auto) 3.03 (1.2-3.4) K/uL [place] # (Auto) 0.66 (0.24-0.82) K/uL Eos # (Auto) 0.21 (0-0.50) K/uL Baso # (Auto) 0.05 (0-0.2) K/uL Immature Gran # (Auto) 0.05 H (0.00-0.02) K/uL PT 29.6 H (9.0-12.0) Seconds INR 2.9 H (0.9-1.1) ABG pH (7.35-7.45) ABG pCO2 (35-46) mmHg ABG pO2 (80-95) mmHg ABG HCO3 (19-24) mmol/L ABG O2 Saturation (90-95) % ABG Base Excess (-9-1.8) mEq/L [place] Test (Pos) Oxygen Given Sodium (136-145) mmol/L Potassium (3.5-5.1) mmol/L Chloride (98-107) mmol/L Carbon Dioxide (21-32) mmol/L Anion Gap (3-11) BUN (6-23) mg/dl Creatinine (0.6-1.2) mg/dl Est Cr Clr Drug Dosing ml/min Est GFR ( Amer) ml/min Est GFR (Non-Af Amer) ml/min BUN/Creatinine Ratio (10-20) Glucose (70-99(Fasting)) mg/dl Estimat Average Glucose mg/dl Hemoglobin A1c (4.5-5.6) % Calcium (8.5-10.1) mg/dl Magnesium (1.7-2.4) mg/dl Total Bilirubin (0.2-1.0) mg/dl AST (13-39) U/L ALT (7-52) U/L Alkaline Phosphatase (34-104) U/L Troponin I High Sens (0-14) pg/ml B-Natriuretic Peptide (0-100) pg/ml Total Protein (6.0-8.3) gm/dl Albumin (3.4-5.0) gm/dl Globulin (2.5-4.0) gm/dl Albumin/Globulin Ratio (0.9-2) TSH (0.300-4.500) uIu/ml Urine Color Yellow Urine Appearance Clear (Clear) Urine pH 5.0 (4.5-7.5) Ur Specific [place] 1.007 (1.000-1.030) Urine Protein Negative (Negative) Urine Glucose (UA) Negative (Negative) Urine Ketones Negative (Negative) Urine Blood Negative (Negative) Urine Nitrite Negative (Negative) Urine Bilirubin Negative (Negative) Urine Urobilinogen Negative (Negative) Ur Leukocyte Esterase Trace H (Negative) Urine WBC (Auto) 1-5 (0-5) /hpf Urine RBC (Auto) 0-4 (0-4) /hpf U Hyaline Cast (Auto) 0 (0-5) /lpf U Epithel Cells (Auto) 10-20 H (0-5) /lpf Urine Bacteria (Auto) Negative (Negative) SARS-CoV-2 (PCR) (Negative) Influenza Type A (PCR) (Neg) Influenza Type B (PCR) (Neg) RSV (RT-PCR) (Neg) 08/20/22 08/20/22 08/20/22 Range/Units 14:35 14:35 14:35 WBC (4.8-10.8) K/ul RBC (3.93-5.22) M/uL Hgb (12.0-16.0) g/dl Hct (34.1-44.9) % MCV (80.0-100.0) fL MCH (25.0-34.0) pg MCHC (32.0-36.0) g/dL RDW Std Deviation (36.4-46.3) fL RDW Coeff of Ursula (11.5-14.5) % Plt Count (130-400) K/uL MPV (9.4-12.3) fL Immature Gran % (Auto) % Neut % (Auto) % Lymph % (Auto) % [place] % (Auto) % Eos % (Auto) % Baso % (Auto) % Neut # (Auto) (1.4-6.5) K/uL Lymph # (Auto) (1.2-3.4) K/uL [place] # (Auto) (0.24-0.82) K/uL Eos # (Auto) (0-0.50) K/uL Baso # (Auto) (0-0.2) K/uL Immature Gran # (Auto) (0.00-0.02) K/uL PT (9.0-12.0) Seconds INR (0.9-1.1) ABG pH (7.35-7.45) ABG pCO2 (35-46) mmHg ABG pO2 (80-95) mmHg ABG HCO3 (19-24) mmol/L ABG O2 Saturation (90-95) % ABG Base Excess (-9-1.8) mEq/L [place] Test (Pos) Oxygen Given Sodium 142 (136-145) mmol/L Potassium 4.3 (3.5-5.1) mmol/L Chloride 106 (98-107) mmol/L Carbon Dioxide 28 (21-32) mmol/L Anion Gap 8 (3-11) BUN 20 (6-23) mg/dl Creatinine 0.76 (0.6-1.2) mg/dl Est Cr Clr Drug Dosing 100.4 ml/min Est GFR ( Amer) 97.4 ml/min Est GFR (Non-Af Amer) 84.1 ml/min BUN/Creatinine Ratio 26.3 H (10-20) Glucose 117 H (70-99(Fasting)) mg/dl Estimat Average Glucose mg/dl Hemoglobin A1c (4.5-5.6) % Calcium 8.9 (8.5-10.1) mg/dl Magnesium 2.0 (1.7-2.4) mg/dl Total Bilirubin 0.2 (0.2-1.0) mg/dl AST 18 (13-39) U/L ALT 13 (7-52) U/L Alkaline Phosphatase 79 (34-104) U/L Troponin I High Sens 5.8 (0-14) pg/ml B-Natriuretic Peptide 14 (0-100) pg/ml Total Protein 6.7 (6.0-8.3) gm/dl Albumin 3.6 (3.4-5.0) gm/dl Globulin 3.1 (2.5-4.0) gm/dl Albumin/Globulin Ratio 1.2 (0.9-2) TSH 1.688 (0.300-4.500) uIu/ml Urine Color Urine Appearance (Clear) Urine pH (4.5-7.5) Ur Specific [place] (1.000-1.030) Urine Protein (Negative) Urine Glucose (UA) (Negative) Urine Ketones (Negative) Urine Blood (Negative) Urine Nitrite (Negative) Urine Bilirubin (Negative) Urine Urobilinogen (Negative) Ur Leukocyte Esterase (Negative) Urine WBC (Auto) (0-5) /hpf Urine RBC (Auto) (0-4) /hpf U Hyaline Cast (Auto) (0-5) /lpf U Epithel Cells (Auto) (0-5) /lpf Urine Bacteria (Auto) (Negative) SARS-CoV-2 (PCR) (Negative) Influenza Type A (PCR) (Neg) Influenza Type B (PCR) (Neg) RSV (RT-PCR) (Neg) 08/20/22 08/20/22 08/20/22 Range/Units 14:35 15:36 21:29 WBC (4.8-10.8) K/ul RBC (3.93-5.22) M/uL Hgb (12.0-16.0) g/dl Hct (34.1-44.9) % MCV (80.0-100.0) fL MCH (25.0-34.0) pg MCHC (32.0-36.0) g/dL RDW Std Deviation (36.4-46.3) fL RDW Coeff of Ursula (11.5-14.5) % Plt Count (130-400) K/uL MPV (9.4-12.3) fL Immature Gran % (Auto) % Neut % (Auto) % Lymph % (Auto) % [place] % (Auto) % Eos % (Auto) % Baso % (Auto) % Neut # (Auto) (1.4-6.5) K/uL Lymph # (Auto) (1.2-3.4) K/uL [place] # (Auto) (0.24-0.82) K/uL Eos # (Auto) (0-0.50) K/uL Baso # (Auto) (0-0.2) K/uL Immature Gran # (Auto) (0.00-0.02) K/uL PT (9.0-12.0) Seconds INR (0.9-1.1) ABG pH 7.40 (7.35-7.45) ABG pCO2 48 H (35-46) mmHg ABG pO2 105 H (80-95) mmHg ABG HCO3 30 H (19-24) mmol/L ABG O2 Saturation 99.3 H (90-95) % ABG Base Excess 4.1 H (-9-1.8) mEq/L [place] Test POS (Pos) Oxygen Given 10L O2 Sodium (136-145) mmol/L Potassium (3.5-5.1) mmol/L Chloride (98-107) mmol/L Carbon Dioxide (21-32) mmol/L Anion Gap (3-11) BUN (6-23) mg/dl Creatinine (0.6-1.2) mg/dl Est Cr Clr Drug Dosing ml/min Est GFR ( Amer) ml/min Est GFR (Non-Af Amer) ml/min BUN/Creatinine Ratio (10-20) Glucose (70-99(Fasting)) mg/dl Estimat Average Glucose 126 mg/dl Hemoglobin A1c 6.0 H (4.5-5.6) % Calcium (8.5-10.1) mg/dl Magnesium (1.7-2.4) mg/dl Total Bilirubin (0.2-1.0) mg/dl AST (13-39) U/L ALT (7-52) U/L Alkaline Phosphatase (34-104) U/L Troponin I High Sens (0-14) pg/ml B-Natriuretic Peptide (0-100) pg/ml Total Protein (6.0-8.3) gm/dl Albumin (3.4-5.0) gm/dl Globulin (2.5-4.0) gm/dl Albumin/Globulin Ratio (0.9-2) TSH (0.300-4.500) uIu/ml Urine Color Urine Appearance (Clear) Urine pH (4.5-7.5) Ur Specific [place] (1.000-1.030) Urine Protein (Negative) Urine Glucose (UA) (Negative) Urine Ketones (Negative) Urine Blood (Negative) Urine Nitrite (Negative) Urine Bilirubin (Negative) Urine Urobilinogen (Negative) Ur Leukocyte Esterase (Negative) Urine WBC (Auto) (0-5) /hpf Urine RBC (Auto) (0-4) /hpf U Hyaline Cast (Auto) (0-5) /lpf U Epithel Cells (Auto) (0-5) /lpf Urine Bacteria (Auto) (Negative) SARS-CoV-2 (PCR) NEGATIVE (Negative) Influenza Type A (PCR) Negative (Neg) Influenza Type B (PCR) Negative (Neg) RSV (RT-PCR) Negative (Neg) 08/20/22 Range/Units 22:54 WBC (4.8-10.8) K/ul RBC (3.93-5.22) M/uL Hgb (12.0-16.0) g/dl Hct (34.1-44.9) % MCV (80.0-100.0) fL MCH (25.0-34.0) pg MCHC (32.0-36.0) g/dL RDW Std Deviation (36.4-46.3) fL RDW Coeff of Ursula (11.5-14.5) % Plt Count (130-400) K/uL MPV (9.4-12.3) fL Immature Gran % (Auto) % Neut % (Auto) % Lymph % (Auto) % [place] % (Auto) % Eos % (Auto) % Baso % (Auto) % Neut # (Auto) (1.4-6.5) K/uL Lymph # (Auto) (1.2-3.4) K/uL [place] # (Auto) (0.24-0.82) K/uL Eos # (Auto) (0-0.50) K/uL Baso # (Auto) (0-0.2) K/uL Immature Gran # (Auto) (0.00-0.02) K/uL PT (9.0-12.0) Seconds INR (0.9-1.1) ABG pH (7.35-7.45) ABG pCO2 (35-46) mmHg ABG pO2 (80-95) mmHg ABG HCO3 (19-24) mmol/L ABG O2 Saturation (90-95) % ABG Base Excess (-9-1.8) mEq/L [place] Test (Pos) Oxygen Given Sodium (136-145) mmol/L Potassium (3.5-5.1) mmol/L Chloride (98-107) mmol/L Carbon Dioxide (21-32) mmol/L Anion Gap (3-11) BUN (6-23) mg/dl Creatinine (0.6-1.2) mg/dl Est Cr Clr Drug Dosing ml/min Est GFR ( Amer) ml/min Est GFR (Non-Af Amer) ml/min BUN/Creatinine Ratio (10-20) Glucose (70-99(Fasting)) mg/dl Estimat Average Glucose mg/dl Hemoglobin A1c (4.5-5.6) % Calcium (8.5-10.1) mg/dl Magnesium (1.7-2.4) mg/dl Total Bilirubin (0.2-1.0) mg/dl AST (13-39) U/L ALT (7-52) U/L Alkaline Phosphatase (34-104) U/L Troponin I High Sens 4.8 (0-14) pg/ml B-Natriuretic Peptide (0-100) pg/ml Total Protein (6.0-8.3) gm/dl Albumin (3.4-5.0) gm/dl Globulin (2.5-4.0) gm/dl Albumin/Globulin Ratio (0.9-2) TSH (0.300-4.500) uIu/ml Urine Color Urine Appearance (Clear) Urine pH (4.5-7.5) Ur Specific [place] (1.000-1.030) Urine Protein (Negative) Urine Glucose (UA) (Negative) Urine Ketones (Negative) Urine Blood (Negative) Urine Nitrite (Negative) Urine Bilirubin (Negative) Urine Urobilinogen (Negative) Ur Leukocyte Esterase (Negative) Urine WBC (Auto) (0-5) /hpf Urine RBC (Auto) (0-4) /hpf U Hyaline Cast (Auto) (0-5) /lpf U Epithel Cells (Auto) (0-5) /lpf Urine Bacteria (Auto) (Negative) SARS-CoV-2 (PCR) (Negative) Influenza Type A (PCR) (Neg) Influenza Type B (PCR) (Neg) RSV (RT-PCR) (Neg) Imaging Data Radiologist's Impression: Chest X-Ray 08/20/22 15:21 SINGLE VIEW CHEST CLINICAL HISTORY: Atypical chest pain. Dyspnea FINDINGS: An AP, portable, upright chest radiograph is compared to study dated 12/26/2021. Correlation is made with chest CT dated 09/16/2015. The cardiomediastinal silhouette is unremarkable noting atherosclerotic calcification of the thoracic aorta. Emphysema and chronic interstitial thickening is similar to previous. The lungs and pleural spaces are clear noting mild bibasilar scarring/atelectasis. No pneumothorax is seen. The skeletal structures are osteopenic. There are healed left-sided rib fractures. IMPRESSION: Emphysematous change with no active disease in the chest. ACT 112: Negative or not required by law. Electronically signed by: Donavon Littlejohn M.D. 08/20/2022 4:43 PM ECG Data Attestation: I personally reviewed and interpreted this ECG as follows: Indication: + chest pain Rate (beats per minute): 113 Rhythm: + sinus tachycardia ECG Intervals/blocks: + Normal QRS and + Normal QT ECG [place]: + Normal ECG ST segments: + Nonspecific ST abnormalities MDM Narrative An order was placed for continuous cardiac monitoring. The monitor shows a rate of _102__ with _sinus tachycardia__ rhythm. This is a 62-year-old female presents emergency department complaining of chest pain and shortness of breath and states she was referred here by her intensive care ambulance paramedic after an office visit today. Patient with significant and complicated past medical history of both cardiac and pulmonary events. Patient was tachycardic although otherwise hemodynamically stable. Patient was initially on elevated levels of oxygen compared to her prior. She was hesitant to try nebulizer treatments that she states she does not use them at home because they make her feel more anxious. We did try Xopenex here, and patient did not notice any improvement. We discussed steroids for possible COPD exac erbation and she states she "does not do well with these". Patient's INR was therapeutic, I do not suspect occult PE. No evidence of CHF or focal consolidation on chest x-ray. No evidence of significant hypercapnia. Patient did request lorazepam for her anxiety as well as medication for chest pain and headaches. She does use tramadol at home. Given patient's persistent complaints of pain and difficulty breathing despite several modalities done here, she did not feel comfortable going home. Case was discussed with hospitalist for additional evaluation and management. Impression & Plan Chest pain, Chronic respiratory failure with hypoxia, Anxiety disorder, unspecified, COPD (chronic obstructive pulmonary disease), Dyspnea Discharge Plan Visit Data Chief Complaint: Shortness of Breath/Dyspnea Stated Complaint: CHEST PAIN, SOB ED Provider: Ame Lopez Discharge Problem: Chest pain, Chronic respiratory failure with hypoxia, Anxiety disorder, unspecified, COPD (chronic obstructive pulmonary disease), Dyspnea Patient Disposition: Admitted As Inpatient Discharge Instructions Interventions: ED Discharge Assessment Last Done: 08/21/22 01:03
[2022-08-20] MEDS ORDERED: LEVALBUTEROL 1.25MG/0.5ML NEB INH SCH (15:30)
[2022-08-20] MEDS ORDERED: IPRATROPIUM BROMIDE NEB SOLN 0.02% 2.5 ML VIAL INH SCH (15:30)
[2022-08-20 15:35] LABS: Basophils # (auto) 0.05 K/uL (0-0.2); Basophils % (auto) 0.6 %; Eosinophils # (auto) 0.21 K/uL (0-0.50); Eosinophils % (auto) 2.5 %; Hematocrit (blood only) 38.1 % (34.1-44.9); Hemoglobin 11.6 g/dl (12.0-16.0); Immature Granulocytes # (auto) 0.05 K/uL (0.00-0.02); Immature Granulocytes % (auto) 0.6 %; Lymphocytes # (auto) 3.03 K/uL (1.2-3.4); Lymphocytes % (auto) 35.8 %; Mean Corpuscular Hemoglobin 26.2 pg (25.0-34.0); Mean Corpuscular Hgb Conc 30.4 g/dL (32.0-36.0); Mean Corpuscular Volume 86.2 fL (80.0-100.0); Mean Platelet Volume 8.9 fL (9.4-12.3); Monocytes # (auto) 0.66 K/uL (0.24-0.82); Monocytes % (auto) 7.8 %; Neutrophils # (auto) 4.46 K/uL (1.4-6.5); Neutrophils % (auto) 52.7 %; Platelet Count 497 K/uL (130-400); RDW Coefficient of Variation 18.2 % (11.5-14.5); RDW Standard Deviation 57.8 fL (36.4-46.3); Red Blood Count 4.42 M/uL (3.93-5.22); White Blood Count 8.46 K/ul (4.8-10.8)
[2022-08-20 15:46] LABS: INR 2.9 (0.9-1.1); Prothrombin Time 29.6 Seconds (9.0-12.0)
[2022-08-20 15:53] LABS: Base Excess ABG 4.1 mEq/L (-9-1.8); HCO3 ABG 30 mmol/L (19-24); Oxygen Saturation ABG 99.3 % (90-95); PCO2 ABG 48 mmHg (35-46); PO2 ABG 105 mmHg (80-95)
[2022-08-20 15:58] LABS: Allen Test POS (Pos)
[2022-08-20 16:04] LABS: Troponin I High Sensitivity 5.8 pg/ml (0-14)
[2022-08-20 16:07] LABS: Albumin Globulin Ratio 1.2 (0.9-2); Albumin Level 3.6 gm/dl (3.4-5.0); BUN Creatinine Ratio 26.3 (10-20); Bilirubin,Total 0.2 mg/dl (0.2-1.0); Calcium 8.9 mg/dl (8.5-10.1); Creatinine Clr Calc Pharmacy 100.4 ml/min; Est GFR (African American) 97.4 ml/min; Est GFR (Non-African American) 84.1 ml/min; Globulin 3.1 gm/dl (2.5-4.0); Potassium 4.3 mmol/L (3.5-5.1); Total Protein 6.7 gm/dl (6.0-8.3)
[2022-08-20] MEDS ORDERED: XOPENEX/ATROVENT 1.25mg/0.5MG NEB COMBO NEB STA (16:25)
--- NOTE | 2022-08-20 16:44 | XRay Report ---
SINGLE VIEW CHEST CLINICAL HISTORY: Atypical chest pain. Dyspnea FINDINGS: An AP, portable, upright chest radiograph is compared to study dated 12/26/2021. Correlation is made with chest CT dated 09/16/2015. The cardiomediastinal silhouette is unremarkable noting ather osclerotic calcification of the thoracic aorta. Emphysema and chronic interstitial thickening is ki lar to previous. The lungs and pleural spaces are clear noting mild bibasilar scarring/atelectasis. N o pneumothorax is seen. The skeletal structures are osteopenic. There are healed left-sided rib fract ures. IMPRESSION: Emphysematous change with no active disease in the chest. ACT 112: Negative or not required by law. Electronically signed by: Donavon Littlejohn M.D. 08/20/2022 4:43 PM
[2022-08-20] MEDS: LEVALBUTEROL 1.25MG/0.5ML NEB INH SCH ×2 (16:53→23:29)
[2022-08-20] MEDS ORDERED: ALUMINUM/MAGNESIUM SUSP 30 ML UDC PO STA (17:23)
[2022-08-20] MEDS ORDERED: LORazepam 0.5 MG TAB PO STA ×2 (17:23→20:52)
[2022-08-20] MEDS ORDERED: ACETAMINOPHEN 1,000 MG/100 ML VIAL IV STA (17:23)
[2022-08-20] MEDS: IPRATROPIUM BROMIDE NEB SOLN 0.02% 2.5 ML VIAL INH SCH ×2 (17:31→23:29)
[2022-08-20] MEDS ORDERED: FAMOTIDINE 20MG IV PUSH 20 MG/5 ML SYR IV STA (17:35)
[2022-08-20] MEDS ORDERED: traMADol HCL 50 MG TABLET PO STA (18:49)
[2022-08-20] MEDS ORDERED: XOPENEX/ATROVENT 1.25mg/0.5MG NEB COMBO NEB SCH (19:00)
[2022-08-20] MEDS ORDERED: methylPREDNISolone 40 MG in SYRINGE 0 ML IV STA (19:30)
[2022-08-20] MEDS ORDERED: LORazepam 2 MG/2 ML SYR IV STA (21:15)
[2022-08-20] MEDS ORDERED: NITROGLYCERIN SL 0.4 MG/TAB TAB SL STA (21:16)
--- NOTE | 2022-08-20 22:24 | History & Physical Report ---
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 nitro trial for chest pain Follow troponin, TTE May need Cardiology input pending nitro response and work-up results Judicious narcotic/anxiolytic use given addiction history Check hemoglobin A1c DVT prophylaxis Coumadin INR goal between 2 and 3 Full code Total critical care time was 45 minutes. Text document was generated using Wander voice recognition software. It may contain grammatical or spelling errors. Kindly contact undersigned for clarification of any documentation item in question. History of Present Illness Chief Complaint: Chest pain, shortness of breath Primary Care Provider: Roger Alexandra MD History obtained from patient and records. 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 Last confinement December 2021 for COPD exacerbation and complicated UTI. 2 days ago, patient noted dry cough symptoms with pleuritic chest pain going to the neck and worsening shortness of breath while eating some potato chips. Coughing sometimes with meals/water intake if he is not careful. Achy headache symptoms. No unusual abdominal pain. Fluid retention as per patient. Transient hemoptysis and epistaxis after sneezing. No recent sick contacts. Patient has not received COVID-19 vaccination. Patient seen at [facility] generator repairer's office today. Patient noted to be in respiratory distress. Patient directed to ER for evaluation. Neb treatment administered at the ER. Patient still complaining of chest pain. MEDICAL HISTORY: As above. SURGERIES: Cholecystectomy, hysterectomy, hernia repair. FAMILY HISTORY: Heart disease. Schizophrenia 6PERSONAL AND SOCIAL HISTORY: Past tobacco abuse. No chronic intake of alcoholic beverages. On disability Allergies Allergy/AdvReac Type Severity Reaction Status Date / Time aspirin Allergy Unknown TAKES Verified 08/20/22 19:34 COUMADIN salicylates AdvReac Unknown ?DUE TO Verified 08/20/22 19:34 COUMADIN? Home Medications Medication Instructions Recorded Confirmed Type albuterol sulfate 5 mg/mL(0.5 %) 2.5 mg inhalation DIRECTED PRN 08/20/22 08/20/22 History solution for nebulization Shortness Of Breath Or Wheezing albuterol sulfate 90 mcg/actuation 2 puff inhalation QID 08/20/22 08/20/22 History aerosol inhaler baclofen 10 mg tablet 10 mg PO TID PRN Muscle Pain 08/20/22 08/20/22 History buspirone 10 mg tablet 20 mg PO AMHS 08/20/22 08/20/22 History cholecalciferol (vitamin D3) 25 25 mcg PO DAILY 08/20/22 08/20/22 History mcg (1,000 unit) capsule (Vitamin D3) fluticasone fur. 100 mcg-umeclid 1 ea inhalation QAM 08/20/22 08/20/22 History 62.5 mcg-vilant 25 mcg inhalat.powder (Trelegy Ellipta) furosemide 20 mg tablet (Lasix) 20 mg PO DAILY PRN .SWELLING IN 08/20/22 08/20/22 History LOWER LEGS gabapentin 300 mg capsule 300 mg PO HS 08/20/22 08/20/22 History isosorbide mononitrate 30 mg 30 mg PO DAILY 08/20/22 08/20/22 History tablet,extended release 24 hr lorazepam 0.5 mg tablet 0.5 mg PO TID PRN Anxiety 08/20/22 08/20/22 History mirtazapine 30 mg tablet 30 mg PO HS 08/20/22 08/20/22 History nystatin 100,000 unit/gram topical 1 applic topical BID 08/20/22 08/20/22 History powder (Nyamyc) tramadol 100 mg tablet 100 mg PO Q8 PRN .MOD-SEVERE PAIN 08/20/22 08/20/22 History warfarin 5 mg tablet 5 mg PO QPM 08/20/22 08/20/22 History Past Med/Surg History Medical History Anxiety and depression Atrial fibrillation Atypical chest pain Cerebrovascular disease Chronic pain on daily narcotics Complicated bereavement History of stroke "embolic stroke, underlying PFO" Morbid obesity PAF (paroxysmal atrial fibrillation) Submucosal lesion of stomach Noted on EGD 11/06/20 Supratherapeutic INR Surgical History Status post cholecystectomy Status post hysterectomy Family History Other Heart disease Social History Smoking Status: Never smoker Tobacco Type: Cigarettes Second Hand Exposure: No; Do You Dip or Chew Tobacco: No; Tobacco Cessation Education Requested by Patient: No Hx Alcohol Use: No Hx Substance Use: No Preferred Language: Maori Communication Ability: Effective Housekeeping Laundry Worker Required: No Beliefs That Will Affect Care: None marital status: / Current Living Situation: Alone Current Living Situation Comment: in march Other Information That Helps Us Care for You: No Feels Safe at Home: Yes Safety Concerns: Feels Safe At This Time Assistive Devices: Oxygen - at Night, Oxygen - Continuous and Walker Review of Systems Review of Systems: As per HPI, all other systems reviewed and negative Physical Exam Physical Exam: GENERAL: uncomfortable, anxious, obese, minimal respiratory distress SKIN: Pallor, warm HEENT: Pale palpebral conjunctivae, no ptosis, dry buccal mucosa, nasal cannula in place NECK : Supple, short neck, no tenderness CHEST : Decreased breath sounds, diffuse expiratory wheezes, no tenderness HEART : RRR, no obvious murmurs ABDOMEN: Some distention, no abdominal tenderness EXTREMITIES : Minimal LE swelling, no LE tenderness, no other conspicuous deformities noted NEUROLOGIC : Coherent, no facial asymmetry, no other gross focality Results & Data Results & Data ([facility]) Vital Signs (Past 12 Hours) Vital Signs Temp Pulse Pulse Resp BP BP Pulse Ox 08/20/22 21:31 87 18 120/87 97 08/20/22 21:00 98 08/20/22 20:30 96 08/20/22 20:30 161/114 H 08/20/22 20:01 90 16 96 08/20/22 20:00 91 H 19 159/88 H 96 08/20/22 19:31 91 H 17 97 08/20/22 19:30 93 H 20 97 08/20/22 19:01 160/81 H 08/20/22 21:26 86 24 124/78 94 08/20/22 21:00 36.8 C 98 H 22 94 08/20/22 19:00 36.7 C 90 20 160/81 H 97 08/20/22 17:00 106 H 25 H 141/105 H 96 08/20/22 15:00 106 H 22 119/98 95 08/20/22 14:38 36.8 C 116 H 21 94 08/20/22 14:38 08/20/22 14:38 36.8 C 116 H 25 H 141/112 H 94 O2 Del Method O2 Flow Rate 08/20/22 21:31 08/20/22 21:00 08/20/22 20:30 08/20/22 20:30 08/20/22 20:01 08/20/22 20:00 08/20/22 19:31 08/20/22 19:30 08/20/22 19:01 08/20/22 21:26 Non-rebreather 8 08/20/22 21:00 Non-rebreather 6 08/20/22 19:00 Room Air 08/20/22 17:00 Non-rebreather 10 08/20/22 15:00 Non-rebreather 15 08/20/22 14:38 Non-rebreather 15 08/20/22 14:38 Non-rebreather 15 08/20/22 14:38 Non-rebreather 15 Laboratory Results Laboratory Results WBC 8.46 K/ul (4.8-10.8) 08/20/22 14:35 RBC 4.42 M/uL (3.93-5.22) 08/20/22 14:35 Hgb 11.6 g/dl (12.0-16.0) L 08/20/22 14:35 Hct 38.1 % (34.1-44.9) 08/20/22 14:35 MCV 86.2 fL (80.0-100.0) 08/20/22 14:35 MCH 26.2 pg (25.0-34.0) 08/20/22 14:35 MCHC 30.4 g/dL (32.0-36.0) L 08/20/22 14:35 RDW Std Deviation 57.8 fL (36.4-46.3) H 08/20/22 14:35 RDW Coeff of Ursula 18.2 % (11.5-14.5) H 08/20/22 14:35 Plt Count 497 K/uL (130-400) H 08/20/22 14:35 MPV 8.9 fL (9.4-12.3) L 08/20/22 14:35 Immature Gran % (Auto) 0.6 % 08/20/22 14:35 Neut % (Auto) 52.7 % 08/20/22 14:35 Lymph % (Auto) 35.8 % 08/20/22 14:35 [place] % (Auto) 7.8 % 08/20/22 14:35 Eos % (Auto) 2.5 % 08/20/22 14:35 Baso % (Auto) 0.6 % 08/20/22 14:35 Neut # (Auto) 4.46 K/uL (1.4-6.5) 08/20/22 14:35 Lymph # (Auto) 3.03 K/uL (1.2-3.4) 08/20/22 14:35 [place] # (Auto) 0.66 K/uL (0.24-0.82) 08/20/22 14:35 Eos # (Auto) 0.21 K/uL (0-0.50) 08/20/22 14:35 Baso # (Auto) 0.05 K/uL (0-0.2) 08/20/22 14:35 Immature Gran # (Auto) 0.05 K/uL (0.00-0.02) H 08/20/22 14:35 PT 29.6 Seconds (9.0-12.0) H 08/20/22 14:35 INR 2.9 (0.9-1.1) H 08/20/22 14:35 ABG pH 7.40 (7.35-7.45) 08/20/22 15:36 ABG pCO2 48 mmHg (35-46) H 08/20/22 15:36 ABG pO2 105 mmHg (80-95) H 08/20/22 15:36 ABG HCO3 30 mmol/L (19-24) H 08/20/22 15:36 ABG O2 Saturation 99.3 % (90-95) H 08/20/22 15:36 ABG Base Excess 4.1 mEq/L (-9-1.8) H 08/20/22 15:36 [place] Test POS (Pos) 08/20/22 15:36 Oxygen Given 10L O2 08/20/22 15:36 Sodium 142 mmol/L (136-145) 08/20/22 14:35 Potassium 4.3 mmol/L (3.5-5.1) 08/20/22 14:35 Chloride 106 mmol/L (98-107) 08/20/22 14:35 Carbon Dioxide 28 mmol/L (21-32) 08/20/22 14:35 Anion Gap 8 (3-11) 08/20/22 14:35 BUN 20 mg/dl (6-23) 08/20/22 14:35 Creatinine 0.76 mg/dl (0.6-1.2) 08/20/22 14:35 Est Cr Clr Drug Dosing 100.4 ml/min 08/20/22 14:35 Est GFR ( Amer) 97.4 ml/min 08/20/22 14:35 Est GFR (Non-Af Amer) 84.1 ml/min 08/20/22 14:35 BUN/Creatinine Ratio 26.3 (10-20) H 08/20/22 14:35 Glucose 117 mg/dl (70-99(Fasting)) H 08/20/22 14:35 Calcium 8.9 mg/dl (8.5-10.1) 08/20/22 14:35 Magnesium 2.0 mg/dl (1.7-2.4) 08/20/22 14:35 Total Bilirubin 0.2 mg/dl (0.2-1.0) 08/20/22 14:35 AST 18 U/L (13-39) 08/20/22 14:35 ALT 13 U/L (7-52) 08/20/22 14:35 Alkaline Phosphatase 79 U/L (34-104) 08/20/22 14:35 Troponin I High Sens 5.8 pg/ml (0-14) 08/20/22 14:35 B-Natriuretic Peptide 14 pg/ml (0-100) 08/20/22 14:35 Total Protein 6.7 gm/dl (6.0-8.3) 08/20/22 14:35 Albumin 3.6 gm/dl (3.4-5.0) 08/20/22 14:35 Globulin 3.1 gm/dl (2.5-4.0) 08/20/22 14:35 Albumin/Globulin Ratio 1.2 (0.9-2) 08/20/22 14:35 TSH 1.688 uIu/ml (0.300-4.500) 08/20/22 14:35 Impressions Chest X-Ray 08/20/22 15:21 SINGLE VIEW CHEST CLINICAL HISTORY: Atypical chest pain. Dyspnea FINDINGS: An AP, portable, upright chest radiograph is compared to study dated 12/26/2021. Correlation is made with chest CT dated 09/16/2015. The cardiomediastinal silhouette is unremarkable noting atherosclerotic calcification of the thoracic aorta. Emphysema and chronic interstitial thickening is similar to previous. The lungs and pleural spaces are clear noting mild bibasilar scarring/atelectasis. No pneumothorax is seen. The skeletal structures are osteopenic. There are healed left-sided rib fractures. IMPRESSION: Emphysematous change with no active disease in the chest. ACT 112: Negative or not required by law. Electronically signed by: Donavon Littlejohn M.D. 08/20/2022 4:[address] head initial read: There is a an approximately3 cmarea of encephalomalacia and gliosis in the left frontal lobe consistent with old infarct. There is also a 5 x 18 mmold infarct in the right frontal lobe. There is mild periventricular white matter lowdensityconsistent with chronic small vessel disease. No acute large vessel infarct or intracranial hemorrhage is seen. The paranasal sinuses and mastoid air cells are normal EKG as per my interpretation :Rate 115, sinus tachycardia, normal axis, no ischemia
[2022-08-20 22:35] LABS: Influenza A virus by PCR Negative (Neg); Influenza B virus by PCR Negative (Neg); RSV by PCR Negative (Neg); SARS CoV2 RNA(COVID-19) InHosp NEGATIVE (Negative)
[2022-08-21] MEDS ORDERED: NITROGLYCERIN SL 0.4 MG/TAB TAB SL PRN (00:09)
[2022-08-21] MEDS: GABAPENTIN 300 MG CAP PO SCH ×2 (01:31→21:00)
[2022-08-21] MEDS: ACETAMINOPHEN 325 MG TAB PO PRN ×3 (01:31→21:00)
[2022-08-21] MEDS: busPIRone 5 MG TAB PO SCH ×3 (01:32→21:00)
[2022-08-21] MEDS: guaiFENesin 600 MG TABCR PO SCH ×3 (01:33→21:00)
[2022-08-21] MEDS: MIRTAZAPINE TAB 15 MG TAB PO SCH ×2 (01:33→21:00)
[2022-08-21] MEDS: LEVALBUTEROL 1.25MG/0.5ML NEB INH SCH ×5 (01:41→19:57)
[2022-08-21] MEDS: IPRATROPIUM BROMIDE NEB SOLN 0.02% 2.5 ML VIAL INH SCH ×5 (01:41→19:57)
[2022-08-21] MEDS: traMADol HCL 50 MG TABLET PO PRN ×4 (05:52→18:40)
[2022-08-21 07:14] LABS: Estimated Average Glucose 126 mg/dl
--- NOTE | 2022-08-21 07:23 | CT Scan Report ---
HEAD CT NONCONTRAST CT DOSE: 1311.06 mGy.cm HISTORY: Headache. TECHNIQUE: Multiaxial CT images of the head were performed without the use of intravenous contrast. A utomated exposure control was utilized for this study. A dose lowering technique was utilized adheri ng to the principles of ALARA. Comparison: Head CT 12/27/2021. Findings: The paranasal sinuses and mastoid air cells are clear. The calvarium and skull base are int act. There is no mass, hematoma, midline shift, acute infarct. White matter hypodensity is nonspecifi c but suggestive of microvascular ischemic change. The ventricles and sulci demonstrate mild age-rela elyssa involutional changes. Old bilateral MCA territory infarcts are again noted. Impression: No significant change compared to the prior study. No acute intracranial abnormality. ACT 112: Negative or not required by law. Electronically signed by: Otto Hendrickson M.D. 08/21/2022 7:22 AM
[2022-08-21 08:13] LABS: Basophils # (auto) 0.03 K/uL (0-0.2); Basophils % (auto) 0.3 %; Hematocrit (blood only) 34.7 % (34.1-44.9); Immature Granulocytes # (auto) 0.09 K/uL (0.00-0.02); Immature Granulocytes % (auto) 0.8 %; Lymphocytes # (auto) 1.85 K/uL (1.2-3.4); Lymphocytes % (auto) 16.5 %; Mean Corpuscular Hemoglobin 26.4 pg (25.0-34.0); Mean Corpuscular Hgb Conc 31.7 g/dL (32.0-36.0); Mean Corpuscular Volume 83.4 fL (80.0-100.0); Mean Platelet Volume 8.5 fL (9.4-12.3); Monocytes # (auto) 0.21 K/uL (0.24-0.82); Monocytes % (auto) 1.9 %; Neutrophils # (auto) 9.02 K/uL (1.4-6.5); Neutrophils % (auto) 80.5 %; Platelet Count 464 K/uL (130-400); RDW Coefficient of Variation 18.4 % (11.5-14.5); RDW Standard Deviation 55.3 fL (36.4-46.3); Red Blood Count 4.16 M/uL (3.93-5.22)
[2022-08-21] MEDS: ISOSORBIDE MONO EXTENDED REL 30 MG TABCR PO SCH (08:18)
[2022-08-21] MEDS: FLUTICASONE FUROATE 100MCG 14 PUFFS/INHALER INH SCH (08:18)
[2022-08-21] MEDS: UMECLIDINIUM/VILANTEROL 62.5/25MCG 7 PUFFS/INHALER INH SCH (08:20)
[2022-08-21] MEDS: predniSONE 20 MG TAB PO SCH (08:20)
[2022-08-21] MEDS: BACLOFEN 10 MG TAB PO PRN ×2 (08:26→20:59)
[2022-08-21] MEDS: LORazepam 0.5 MG TAB PO PRN ×3 (08:26→20:59)
[2022-08-21 08:32] LABS: INR 1.8 (0.9-1.1); Prothrombin Time 18.8 Seconds (9.0-12.0)
[2022-08-21 08:35] LABS: BUN Creatinine Ratio 42.6 (10-20); Calcium 8.5 mg/dl (8.5-10.1); Creatinine Clr Calc Pharmacy 109.8 ml/min; Est GFR (African American) 108.7 ml/min; Est GFR (Non-African American) 93.7 ml/min; Potassium 4.3 mmol/L (3.5-5.1)
[2022-08-21] MEDS ORDERED: NON-FORMULARY MEDICATION (Fluticasone-Umeclidin-Vilanter [Trelegy Ellipta] 100-62.5-25 mcg INH SCH (09:00)
--- NOTE | 2022-08-21 11:56 | Fluoroscopy Report ---
FL video swallow HISTORY: Dyspnea. r/o aspiration TECHNIQUE: Video fluoroscopic evaluation of swallowing was performed in the AP and lateral projection s by the speech pathology staff. The patient is fed nectar-thick and thin liquid barium, a barium coa elyssa wafer, and barium pudding. FLUOROSCOPY TIME: 2 minutes. A cine loop was submitted. COMPARISON STUDY: None. FINDINGS: There is normal hyoid excursion and epiglottic deflection. No significant penetration or as piration identified. Swallowing function is within normal limits. There is premature spillover to the pyriform sinuses. Mild cricopharyngeal dysfunction is noted. Multiple episodes of penetration with t he thin liquid barium. IMPRESSION: 1. No aspiration identified. 2. Please see the speech pathologist report for detailed findings and recommendations. ACT 112: Negative or not required by law. Electronically signed by: Otto Hendrickson M.D. 08/21/2022 11:55 AM
--- NOTE | 2022-08-21 13:22 | Hospitalist Progress Note ---
Date of Service August 21, 2022 Assessment & Plan (1) Acute exacerbation of chronic obstructive pulmonary disease: Plan 61-year-old female w/ PMH of COPD, chronic respiratory failure 2/2 COPD on 3 liters oxygen, hypothyroidism, sleep apnea, paroxysmal atrial fibrillation on Coumadin [noncompliance], idiopathic cardiomyopathy, patent foramen ovale, grade I diastolic dysfunction, morbid obesity, irritable bowel syndrome, history of narcotic addiction, chronic bilateral low back pain, von Willebrand disease, depression, generalized anxiety disorder,multiple strokes, PTSD, noncompliance with medication, presented 08/20 to the ED with complaints of dry cough symptoms with pleuritic 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 Also complaint was coughing sometimes with meals/water intake if she is not careful. Also complaining of generalized pain including headache, lower abdominal pain, lower belly pain, hip pain. Patient also reported transient hemoptysis and epistaxis after sneezing prior to arrival which has not recurred since that 1 episode per patient. 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 Patient also complaining of coughing sometimes with milk/water intake if she is not careful. Patient was seen at resolution specialist office on the day of arrival and noted to be in respiratory distress and hence directed to the ED. Patient was found to have wheezing at admission, admitting ABG [on 10 L oxygen] with mild CO2 retention done in ED. Admitting CXR with emphysematous changes with no active disease. Admitting CT head with no new acute findings. 08/21 video Swallow study with aspiration identified Patient received Solu-Medrol in the ED, continue with p.o. prednisone. Continue with Xopenex nebulization, patient with sinus tachycardia. Wean down oxygen as tolerated, minimal wheezing noted on exam today. Aspiration precaution, appreciate speech evaluation. Follow-up with GI services regarding complaint of globus sensation as it likely will be correlated to esophageal dysmotility and or GERD. Chest pain: Troponin trends negative, 08/21 echo with EF greater than 70%, grade 1 diastolic dysfunction, no wall motion abnormalities noted. Admitting EKG with sinus tachycardia with fusion complexes. Chest pain could be due to coughing vs anxiety vs part of chronic issues, will continue to monitor over telemetry. Generalized body pain: Including headache, hip pain, lower belly pain, back pain, BLE pain. We will send urine analysis to rule out UTI. We will continue with patient's home pain medication. Chronic medical conditions: History of CVA, embolic 2/2 PFO; anxiety/depression For history of CVA, embolic. on warfarin. For patient's anxiety and depression, continue home medication including buspirone, mirtazapine and as needed lorazepam. Pt requesting psychiatry eval, liasion to eval her first. Resume other home meds as appropriate. Judicious narcotic use given addiction history. DVT prophylaxis: c/w Coumadin. Full code Admission and Anticipated Discharge Date Admission Date: August 20, 2022 Subjective Patient seen and examined at bedside as a follow-up of likely COPD exacerbation, acute respiratory failure and history of generalized anxiety with generalized pain. Patient was lying in bed, on 6 L nasal cannula oxygen, appears sad, complains of headache/chest pain/belly pain/low back pain/hip pain/lower leg pain. Patient also complains of being anxious and would like more of anxiety medication. Patient wanted to be evaluated by psychiatry for her anxiety and wanted to see if they recommend any medication changes. Patient denies cough or hemoptysis, has minimal wheezing on exam, is difficult to assess acute complaints from her chronic complaints. Physical Exam Physical Exam: GENERAL: Alert and oriented x3. NAD, on 6L NC O2 HEENT: No pallor, no icterus. Pupils equal, round and reactive to light. Oral mucosa moist. NECK: No JVD, no neck masses. HEART: S1 and S2 heard. Regular rate and rhythm. No murmur, no gallop. RESPIRATORY SYSTEM: Normal AP diameter. No accessory muscle use. + wheezing, no crackles. ABDOMEN: Soft, bowel sounds present, nontender, no distention. CENTRAL NERVOUS SYSTEM: No facial droop. Speech is clear. Obeys simple commands. Moves extremities. EXTREMITIES: No edema, no erythema seen. Results & Data Results & Data ([facility]) Vital Signs (Past 12 Hours) Vital Signs Temp Pulse Resp BP Pulse Ox O2 Del Method O2 Flow Rate 10/07/22 12:04 113 H 18 106/67 93 Nasal Cannula 6 08/21/22 07:39 36.8 C 08/21/22 07:35 108 H 24 130/76 95 Nasal Cannula 08/21/22 07:29 18 94 Nasal Cannula 6 08/21/22 03:10 36.6 C 95 H 20 121/75 95 Nasal Cannula 6 08/21/22 01:42 20 93 Nasal Cannula 6
--- NOTE | 2022-08-21 13:43 | Electrocardiogram Report ---
Test Reason : Blood Pressure : / mmHG Vent. Rate : 113 BPM Atrial Rate : 113 BPM P-R Int : 128 ms QRS Dur : 076 ms QT Int : 336 ms P-R-T Axes : 056 -24 071 degrees QTc Int : 460 ms Sinus tachycardia with Fusion complexes Low voltage QRS Possible Inferior infarct , age undetermined Abnormal ECG When compared with ECG of 01-JAN-2022 11:16, Fusion complexes are now Present Borderline criteria for Inferior infarct are now Present Confirmed by Dov Cintron ([id number]) on 08/21/2022 1:43:18 PM Referred By: REFERRED SELF Confirmed By:David Cintron
[2022-08-21 13:48] LABS: Appearance Urine Clear (Clear); Bacteria Urine Automated Negative (Negative); Bilirubin Urine Negative (Negative); Blood Urine Negative (Negative); Cast Urine Automated 0 /lpf (0-5); Color Urine Yellow; Glucose Urine UA Negative (Negative); Ketones Urine Negative (Negative); Leukocyte Esterase Urine Trace (Negative); Nitrite Urine Negative (Negative); Protein Urine Negative (Negative); RBC Urine Automated 0-4 /hpf (0-4); Specific Gravity Urine 1.007 (1.000-1.030); Urobilinogen Urine Negative (Negative)
[2022-08-21] MEDS: WARFARIN SOD 5 MG TAB PO SCH (17:40)
[2022-08-22] MEDS: traMADol HCL 50 MG TABLET PO PRN ×5 (00:20→23:55)
[2022-08-22] MEDS ORDERED: LEVALBUTEROL HCL 1.25 MG/3 ML NEB ONE (00:53)
[2022-08-22] MEDS: IPRATROPIUM BROMIDE NEB SOLN 0.02% 2.5 ML VIAL INH SCH ×4 (00:55→19:58)
[2022-08-22] MEDS: LEVALBUTEROL 1.25MG/0.5ML NEB INH SCH ×4 (00:56→19:58)
[2022-08-22 06:19] LABS: Hematocrit (blood only) 31.8 % (34.1-44.9); Hemoglobin 9.9 g/dl (12.0-16.0); Mean Corpuscular Hemoglobin 26.2 pg (25.0-34.0); Mean Corpuscular Hgb Conc 31.1 g/dL (32.0-36.0); Mean Corpuscular Volume 84.1 fL (80.0-100.0); Mean Platelet Volume 8.6 fL (9.4-12.3); Nucleated RBC # (auto) 0.02 K/uL (0-0); Nucleated RBC % (auto) 0.2 %; Platelet Count 458 K/uL (130-400); RDW Coefficient of Variation 18.5 % (11.5-14.5); RDW Standard Deviation 55.6 fL (36.4-46.3); Red Blood Count 3.78 M/uL (3.93-5.22); White Blood Count 12.51 K/ul (4.8-10.8)
[2022-08-22 06:35] LABS: INR 1.3 (0.9-1.1)
[2022-08-22 07:12] LABS: BUN Creatinine Ratio 34.2 (10-20); Calcium 8.4 mg/dl (8.5-10.1); Creatinine Clr Calc Pharmacy 98.3 ml/min; Est GFR (African American) 97.4 ml/min; Est GFR (Non-African American) 84.1 ml/min; Phosphorus 2.9 mg/dl (2.5-4.9); Potassium 3.9 mmol/L (3.5-5.1)
[2022-08-22] MEDS: LORazepam 0.5 MG TAB PO PRN ×2 (07:27→14:49)
[2022-08-22] MEDS: UMECLIDINIUM/VILANTEROL 62.5/25MCG 7 PUFFS/INHALER INH SCH (09:03)
[2022-08-22] MEDS: busPIRone 5 MG TAB PO SCH ×2 (09:03→19:48)
[2022-08-22] MEDS: guaiFENesin 600 MG TABCR PO SCH ×2 (09:03→19:48)
[2022-08-22] MEDS: predniSONE 20 MG TAB PO SCH (09:03)
[2022-08-22] MEDS: ISOSORBIDE MONO EXTENDED REL 30 MG TABCR PO SCH (09:03)
[2022-08-22] MEDS: FLUTICASONE FUROATE 100MCG 14 PUFFS/INHALER INH SCH (09:04)
[2022-08-22] MEDS: hydrOXYzine HCl 25 MG TAB PO PRN ×2 (10:26→19:56)
[2022-08-22] MEDS: WARFARIN SOD 5 MG TAB PO SCH (15:41)
--- NOTE | 2022-08-22 16:47 | Electrocardiogram Report ---
Test Reason : Blood Pressure : / mmHG Vent. Rate : 094 BPM Atrial Rate : 094 BPM P-R Int : 136 ms QRS Dur : 088 ms QT Int : 352 ms P-R-T Axes : 031 000 049 degrees QTc Int : 440 ms Normal sinus rhythm Normal ECG When compared with ECG of 20-AUG-2022 14:31, No significant change Confirmed by Bean Yang ([id number]) on 08/22/2022 4:47:02 PM Referred By: REFERRED SELF Confirmed By:Bean Yang
--- NOTE | 2022-08-22 18:20 | Hospitalist Progress Note ---
Date of Service August 22, 2022 Assessment & Plan (1) Acute exacerbation of chronic obstructive pulmonary disease: Plan 61-year-old female w/ PMH of COPD, chronic respiratory failure 2/2 COPD on 3 liters oxygen, hypothyroidism, sleep apnea, paroxysmal atrial fibrillation on Coumadin [noncompliance], idiopathic cardiomyopathy, patent foramen ovale, grade I diastolic dysfunction, morbid obesity, irritable bowel syndrome, history of narcotic addiction, chronic bilateral low back pain, von Willebrand disease, depression, generalized anxiety disorder,multiple strokes, PTSD, noncompliance with medication, presented 08/20 to the ED with complaints of dry cough symptoms with pleuritic 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 Also complaint was coughing sometimes with meals/water intake if she is not careful. Also complaining of generalized pain including headache, lower abdominal pain, lower belly pain, hip pain. Patient also reported transient hemoptysis and epistaxis after sneezing prior to arrival which has not recurred since that 1 episode per patient. 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 Patient also complaining of coughing sometimes with milk/water intake if she is not careful. Patient was seen at supervisor paper machine office on the day of arrival and noted to be in respiratory distress and hence directed to the ED. Patient was found to have wheezing at admission, admitting ABG [on 10 L oxygen] with mild CO2 retention done in ED. Admitting CXR with emphysematous changes with no active disease. Admitting CT head with no new acute findings. 08/21 video Swallow study with aspiration identified Patient received Solu-Medrol in the ED, continue with p.o. prednisone. Continue with Xopenex nebulization, sinus tachycardia improving. Patient encouraged to use incentive spirometer. Wean down oxygen as tolerated, some wheezing noted on exam today. Aspiration precaution, appreciate speech evaluation. Follow-up with GI services regarding complaint of globus sensation as it likely will be correlated to esophageal dysmotility and or GERD. Chest pain: Troponin trends negative, 08/21 echo with EF greater than 70%, grade 1 diastolic dysfunction, no wall motion abnormalities noted. Admitting EKG with sinus tachycardia with fusion complexes. Chest pain could be due to coughing vs anxiety vs part of chronic issues, will continue to monitor over telemetry. Generalized body pain: Including headache, hip pain, lower belly pain, back pain, BLE pain. Urine analysis not overtly suggestive of UTI. We will continue with patient's home pain medication. Chronic medical conditions: History of CVA, embolic 2/2 PFO; anxiety/depression For history of CVA, embolic. on warfarin. For patient's anxiety and depression, continue home medication including buspirone, mirtazapine and as needed lorazepam. Pt requesting psychiatry eval, liasion to eval her first. Resume other home meds as appropriate. Judicious narcotic use given addiction history. DVT prophylaxis: c/w Coumadin. Full code PT/OT, CM to assist with DC planning, expect DC when wheezing improves and oxygen weaned down to baseline. Admission and Anticipated Discharge Date Admission Date: August 20, 2022 Subjective Patient seen and examined at bedside as a follow-up of likely COPD exacerbation, acute respiratory failure and history of generalized anxiety with generalized pain. Patient was lying in bed, on 5 L nasal cannula oxygen, NAD, complains of headache/chest pain/belly pain/low back pain/hip pain/lower leg pain. Patient also complains of being anxious and would like more of anxiety medication. Patient psychiatry liaison, Sudhirl has been added as needed. Patient denies cough or hemoptysis, has some wheezing on exam, is difficult to assess acute complaints from her chronic complaints. Physical Exam Physical Exam: GENERAL: Alert and oriented x3. NAD, on 5L NC O2 HEENT: No pallor, no icterus. Pupils equal, round and reactive to light. Oral mucosa moist. NECK: No JVD, no neck masses. HEART: S1 and S2 heard. Regular rate and rhythm. No murmur, no gallop. RESPIRATORY SYSTEM: Normal AP diameter. No accessory muscle use. + wheezing, no crackles. ABDOMEN: Soft, bowel sounds present, nontender, no distention. CENTRAL NERVOUS SYSTEM: No facial droop. Speech is clear. Obeys simple commands. Moves extremities. EXTREMITIES: No edema, no erythema seen. Results & Data Results & Data ([facility]) Vital Signs (Past 12 Hours) Vital Signs Temp Pulse Pulse Resp BP Pulse Ox O2 Del Method 08/22/22 15:00 96 H 08/22/22 15:29 36.6 C 65 22 139/79 98 Nasal Cannula 08/22/22 13:42 86 18 93 Nasal Cannula 08/22/22 11:43 36.5 C 94 H 22 133/83 94 Room Air 08/22/22 10:30 Nasal Cannula 08/22/22 10:28 94 H 26 H 111/71 92 Nasal Cannula 08/22/22 07:00 97 H 08/22/22 09:00 112/75 08/22/22 07:24 37.0 C 98 H 20 141/90 H 95 Nasal Cannula 08/22/22 07:12 90 20 96 Nasal Cannula O2 Flow Rate 08/22/22 15:00 08/22/22 15:29 5 08/22/22 13:42 5 08/22/22 11:43 5 08/22/22 10:30 5 08/22/22 10:28 5 08/22/22 07:00 08/22/22 09:00 08/22/22 07:24 5 08/22/22 07:12 7
[2022-08-22] MEDS: BACLOFEN 10 MG TAB PO PRN (19:48)
[2022-08-22] MEDS: MIRTAZAPINE TAB 15 MG TAB PO SCH (19:48)
[2022-08-22] MEDS: GABAPENTIN 300 MG CAP PO SCH (19:49)
[2022-08-23] MEDS: IPRATROPIUM BROMIDE NEB SOLN 0.02% 2.5 ML VIAL INH SCH ×4 (00:33→19:50)
[2022-08-23] MEDS: LEVALBUTEROL 1.25MG/0.5ML NEB INH SCH ×4 (00:33→19:51)
[2022-08-23] MEDS: traMADol HCL 50 MG TABLET PO PRN ×4 (04:38→22:39)
[2022-08-23] MEDS: hydrOXYzine HCl 25 MG TAB PO PRN ×3 (04:39→21:39)
[2022-08-23 06:37] LABS: Hematocrit (blood only) 33.3 % (34.1-44.9); Hemoglobin 10.4 g/dl (12.0-16.0); Mean Corpuscular Hemoglobin 26.5 pg (25.0-34.0); Mean Corpuscular Hgb Conc 31.2 g/dL (32.0-36.0); Mean Corpuscular Volume 84.7 fL (80.0-100.0); Mean Platelet Volume 8.3 fL (9.4-12.3); Nucleated RBC # (auto) 0.02 K/uL (0-0); Nucleated RBC % (auto) 0.2 %; Platelet Count 477 K/uL (130-400); RDW Coefficient of Variation 18.7 % (11.5-14.5); RDW Standard Deviation 57.1 fL (36.4-46.3); Red Blood Count 3.93 M/uL (3.93-5.22); White Blood Count 13.22 K/ul (4.8-10.8)
[2022-08-23 06:58] LABS: BUN Creatinine Ratio 42.2 (10-20); Calcium 8.8 mg/dl (8.5-10.1); Creatinine Clr Calc Pharmacy 117.9 ml/min; Est GFR (African American) 110.8 ml/min; Est GFR (Non-African American) 95.6 ml/min; Magnesium 2.2 mg/dl (1.7-2.4); Phosphorus 3.2 mg/dl (2.5-4.9); Potassium 3.7 mmol/L (3.5-5.1)
[2022-08-23 07:02] LABS: INR 1.5 (0.9-1.1); Prothrombin Time 15.4 Seconds (9.0-12.0)
[2022-08-23] MEDS: LORazepam 0.5 MG TAB PO PRN ×3 (07:52→20:21)
[2022-08-23] MEDS ORDERED: WARFARIN SOD 1 MG TAB PO STA (08:51)
[2022-08-23] MEDS: busPIRone 5 MG TAB PO SCH ×2 (09:18→20:13)
[2022-08-23] MEDS: UMECLIDINIUM/VILANTEROL 62.5/25MCG 7 PUFFS/INHALER INH SCH (09:18)
[2022-08-23] MEDS: ISOSORBIDE MONO EXTENDED REL 30 MG TABCR PO SCH (09:18)
[2022-08-23] MEDS: predniSONE 20 MG TAB PO SCH (09:18)
[2022-08-23] MEDS: guaiFENesin 600 MG TABCR PO SCH ×2 (09:18→20:13)
[2022-08-23] MEDS: FLUTICASONE FUROATE 100MCG 14 PUFFS/INHALER INH SCH (09:19)
[2022-08-23] MEDS ORDERED: MICONAZOLE NITRATE POWDER 43 GM EXT PRN (12:45)
[2022-08-23] MEDS: WARFARIN SOD 5 MG TAB PO SCH (15:38)
--- NOTE | 2022-08-23 16:10 | Hospitalist Progress Note ---
Date of Service August 23, 2022 Assessment & Plan (1) Acute exacerbation of chronic obstructive pulmonary disease: Plan 61-year-old female w/ PMH of COPD, chronic respiratory failure 2/2 COPD on 3 liters oxygen, hypothyroidism, sleep apnea, paroxysmal atrial fibrillation on Coumadin [noncompliance], idiopathic cardiomyopathy, patent foramen ovale, grade I diastolic dysfunction, morbid obesity, irritable bowel syndrome, history of narcotic addiction, chronic bilateral low back pain, von Willebrand disease, depression, generalized anxiety disorder,multiple strokes, PTSD, noncompliance with medication, presented 08/20 to the ED with complaints of dry cough symptoms with 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 Also complaint was coughing sometimes with meals/water intake if she is not careful. Also complaining of generalized pain including headache, lower abdominal pain, lower belly pain, hip pain. Patient also reported transient hemoptysis and epistaxis after sneezing prior to arrival which has not recurred since that 1 episode per patient. 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 Patient also complaining of coughing sometimes with milk/water intake if she is not careful. Patient was seen at double bottom driver office on the day of arrival and noted to be in respiratory distress and hence directed to the ED. Patient was found to have wheezing at admission, admitting ABG [on 10 L oxygen] with mild CO2 retention done in ED. Pt states she uses 5L O2 at home w/ acitivity and 4L w/ rest. Admitting CXR with emphysematous changes with no active disease. Admitting CT head with no new acute findings. 08/21 video Swallow study with no aspiration identified Patient received Solu-Medrol in the ED, continue with p.o. prednisone. Continue with Xopenex nebulization, sinus tachycardia improving. Patient encouraged to use incentive spirometer, non compliant. Wean down oxygen as tolerated, some wheezing noted on exam today. Aspiration precaution, appreciate speech evaluation. Follow-up with GI services regarding complaint of globus sensation as it likely will be correlated to esophageal dysmotility and or GERD. Subtherapeutic INR: f/u INR, extra dose of warfarin today. Chest pain: Troponin trends negative, 08/21 echo with EF greater than 70%, grade 1 diastolic dysfunction, no wall motion abnormalities noted. Admitting EKG with sinus tachycardia with fusion complexes. Chest pain could be due to coughing vs anxiety vs part of chronic issues, will continue to monitor over telemetry. Generalized body pain: Including headache, hip pain, lower belly pain, back pain, BLE pain. Urine analysis not overtly suggestive of UTI. We will continue with patient's home pain medication. Chronic medical conditions: History of CVA, embolic 2/2 PFO; anxiety/depression For history of CVA, embolic. on warfarin. For patient's anxiety and depression, continue home medication including buspirone, mirtazapine and as needed lorazepam. Pt requested psychiatry eval, liasion eval appreciated. Resume other home meds as appropriate. Judicious narcotic use given addiction history. DVT prophylaxis: c/w Coumadin. Full code PT/OT, CM to assist with DC planning, expect DC when wheezing improves and oxygen weaned down to baseline. Admission and Anticipated Discharge Date Admission Date: August 20, 2022 Subjective Patient seen and examined at bedside as a follow-up of likely COPD exacerbation, acute respiratory failure and history of generalized anxiety with generalized pain. Patient was lying in bed, on 5 L nasal cannula oxygen, NAD, complains of headache/chest pain/belly pain/low back pain/hip pain/lower leg pain. Patient also complains of being anxious and would like more of anxiety medication. Patient's discussion was focussed mainly on increasing ativan and pain medication. Patient denies cough or hemoptysis, has improving wheezing on exam, is difficult to assess acute complaints from her chronic complaints. Physical Exam Physical Exam: GENERAL: Alert and oriented x3. NAD, on 5L NC O2 HEENT: No pallor, no icterus. Pupils equal, round and reactive to light. Oral mucosa moist. NECK: No JVD, no neck masses. HEART: S1 and S2 heard. Regular rate and rhythm. No murmur, no gallop. RESPIRATORY SYSTEM: Normal AP diameter. No accessory muscle use. + wheezing--improving, no crackles. ABDOMEN: Soft, bowel sounds present, nontender, no distention. CENTRAL NERVOUS SYSTEM: No facial droop. Speech is clear. Obeys simple commands. Moves extremities. EXTREMITIES: No edema, no erythema seen. Results & Data Results & Data ([facility]) Vital Signs (Past 12 Hours) Vital Signs Temp Pulse Pulse Resp BP Pulse Ox O2 Del Method 08/23/22 15:31 36.7 C 94 H 20 146/77 H 93 Nasal Cannula 08/23/22 15:00 94 H 08/23/22 12:59 86 18 92 Nasal Cannula 08/23/22 08:00 Nasal Cannula 08/23/22 11:41 36.4 C L 92 H 22 151/97 H 93 Nasal Cannula 08/23/22 07:00 87 08/23/22 09:17 97/62 L 08/23/22 07:48 36.5 C 84 20 128/75 92 Nasal Cannula 08/23/22 07:07 86 18 95 Nasal Cannula O2 Flow Rate 08/23/22 15:31 5.0 08/23/22 15:00 08/23/22 12:59 5 08/23/22 08:00 5 08/23/22 11:41 5.0 08/23/22 07:00 08/23/22 09:17 08/23/22 07:48 5.0 08/23/22 07:07 5
[2022-08-23 17:49] LABS: Anion Gap 8.5 (3-11)
[2022-08-23] MEDS: GABAPENTIN 300 MG CAP PO SCH (20:13)
[2022-08-23] MEDS: MIRTAZAPINE TAB 15 MG TAB PO SCH (20:13)
[2022-08-24] MEDS: IPRATROPIUM BROMIDE NEB SOLN 0.02% 2.5 ML VIAL INH SCH ×3 (00:26→13:10)
[2022-08-24] MEDS: LEVALBUTEROL 1.25MG/0.5ML NEB INH SCH ×3 (00:26→13:10)
[2022-08-24] MEDS: hydrOXYzine HCl 25 MG TAB PO PRN (05:55)
[2022-08-24] MEDS: traMADol HCL 50 MG TABLET PO PRN ×2 (05:55→13:04)
[2022-08-24 06:16] LABS: Hematocrit (blood only) 35.2 % (34.1-44.9); Hemoglobin 10.9 g/dl (12.0-16.0); Mean Corpuscular Hemoglobin 26.1 pg (25.0-34.0); Mean Corpuscular Volume 84.4 fL (80.0-100.0); Mean Platelet Volume 8.2 fL (9.4-12.3); Nucleated RBC # (auto) 0.02 K/uL (0-0); Nucleated RBC % (auto) 0.2 %; Platelet Count 475 K/uL (130-400); RDW Coefficient of Variation 18.8 % (11.5-14.5); RDW Standard Deviation 56.3 fL (36.4-46.3); Red Blood Count 4.17 M/uL (3.93-5.22); White Blood Count 11.69 K/ul (4.8-10.8)
[2022-08-24 06:52] LABS: BUN Creatinine Ratio 42.9 (10-20); Calcium 8.8 mg/dl (8.5-10.1); Creatinine Clr Calc Pharmacy 119.3 ml/min; Est GFR (African American) 111.4 ml/min; Est GFR (Non-African American) 96.1 ml/min; Magnesium 2.2 mg/dl (1.7-2.4); Phosphorus 3.5 mg/dl (2.5-4.9); Potassium 4.2 mmol/L (3.5-5.1)
[2022-08-24 06:56] LABS: INR 1.6 (0.9-1.1); Prothrombin Time 17.1 Seconds (9.0-12.0)
[2022-08-24] MEDS: busPIRone 5 MG TAB PO SCH (08:55)
[2022-08-24] MEDS: guaiFENesin 600 MG TABCR PO SCH (08:56)
[2022-08-24] MEDS: FLUTICASONE FUROATE 100MCG 14 PUFFS/INHALER INH SCH (08:56)
[2022-08-24] MEDS: ISOSORBIDE MONO EXTENDED REL 30 MG TABCR PO SCH (08:56)
[2022-08-24] MEDS: UMECLIDINIUM/VILANTEROL 62.5/25MCG 7 PUFFS/INHALER INH SCH (08:57)
[2022-08-24] MEDS: LORazepam 0.5 MG TAB PO PRN (08:57)
[2022-08-24] MEDS: predniSONE 20 MG TAB PO SCH (08:57)
[2022-08-24] MEDS: ACETAMINOPHEN 325 MG TAB PO PRN (11:09)
[2022-08-24] MEDS ORDERED: WARFARIN SOD 1 MG TAB PO SCH (16:00)
--- NOTE | 2022-08-24 16:12 | Discharge Summary ---
Discharge Summary Date of Service August 24, 2022 Notes For Next Care Provider Patient will need PCP visit in a week time. Patient was admitted for acute exacerbation of COPD, he is being discharged on prednisone taper. Patient INR was subtherapeutic, patient will need Coumadin clinic visit in 3 days and PT/INR drawn in 3 days, and further evaluation for necessary dose adjustment of her warfarin dose. Likely GI f/u due to globus sensation during swallowing, concern for GI dysmotility or GERD. Medication Changes From Visit Prednisone taper dose has been added. Hydroxyzine as needed for anxiety has been added. Admission HPI Per Admitting Provider Chief Complaint: Chest pain, shortness of breath Primary Care Provider: Roger Alexandra MD History obtained from patient and records. 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 Last confinement December 2021 for COPD exacerbation and complicated UTI. 2 days ago, patient noted dry cough symptoms with pleuritic chest pain going to the neck and worsening shortness of breath while eating some potato chips. Coughing sometimes with meals/water intake if he is not careful. Achy headache symptoms. No unusual abdominal pain. Fluid retention as per patient. Transient hemoptysis and epistaxis after sneezing. No recent sick contacts. Patient has not received COVID-19 vaccination. Patient seen at [facility] customer business manager's office today. Patient noted to be in respiratory distress. Patient directed to ER for evaluation. Neb treatment administered at the ER. Patient still complaining of chest pain. MEDICAL HISTORY: As above. SURGERIES: Cholecystectomy, hysterectomy, hernia repair. FAMILY HISTORY: Heart disease. Schizophrenia 6PERSONAL AND SOCIAL HISTORY: Past tobacco abuse. No chronic intake of alcoholic beverages. On disability Admission Exam Per Admitting Provider GENERAL: uncomfortable, anxious, obese, minimal respiratory distress SKIN: Pallor, warm HEENT: Pale palpebral conjunctivae, no ptosis, dry buccal mucosa, nasal cannula in place NECK : Supple, short neck, no tenderness CHEST : Decreased breath sounds, diffuse expiratory wheezes, no tenderness HEART : RRR, no obvious murmurs ABDOMEN: Some distention, no abdominal tenderness EXTREMITIES : Minimal LE swelling, no LE tenderness, no other conspicuous deformities noted NEUROLOGIC : Coherent, no facial asymmetry, no other gross focality Principal Dx & Hospital Course #1 = Principal Diagnosis (1) Acute exacerbation of chronic obstructive pulmonary disease: Plan 61-year-old female w/ PMH of COPD, chronic respiratory failure 2/2 COPD on 3 liters oxygen, hypothyroidism, sleep apnea, paroxysmal atrial fibrillation on Coumadin [noncompliance], idiopathic cardiomyopathy, patent foramen ovale, grade I diastolic dysfunction, morbid obesity, irritable bowel syndrome,history of narcotic addiction, chronic bilateral low back pain, von Willebrand disease, depression,generalized anxiety disorder,multiple strokes, PTSD,noncompliance with medication, presented 08/20 to the ED with complaints of dry cough symptoms with 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 Also complaint was coughing sometimes with meals/water intake if she is not careful. Also complaining of generalized pain including headache, lower abdominal pain, lower belly pain, hip pain. Patient also reported transient hemoptysis and epistaxis after sneezing prior to arrival which has not recurred since that 1 episode per patient. 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 Patient also complaining of coughing sometimes with milk/water intake if she is not careful. Patient was seen at customer business manager office on the day of arrival and noted to be in respiratory distress and hence directed to the ED. Patient was found to have wheezing at admission, admitting ABG [on 10 L oxygen] with mild CO2 retention done in ED. Pt states she uses 5L O2 at home w/ acitivity and 4L w/ rest. Admitting CXR with emphysematous changes with no active disease. Admitting CT head with no new acute findings. 08/21 video Swallow study with no aspiration identified Patient received Solu-Medrol in the ED, continue with p.o. prednisone. Prednisone taper upon discharge. Continue nebulization as needed. Patient encouraged to use incentive spirometer, non compliant. Wheezing has resolved on exam, patient down to 4 L [which is her home baseline] of oxygen.. Aspiration precaution, appreciate speech evaluation.Follow-up with GI services regarding complaint of globus sensation as it likely will be correlated to esophageal dysmotility and or GERD. Subtherapeutic INR:f/u INR, extra dose of warfarin today. Patient to follow-up with Coumadin clinic in 3 days and have PT/INR drawn and have further evaluation at Coumadin clinic. Patient made aware. Chest pain:Troponin trends negative, 08/21 echo with EF greater than 70%, grade 1 diastolic dysfunction, no wall motion abnormalities noted. Admitting EKG with sinus tachycardia with fusion complexes. Chest pain could be due to coughing vs anxiety vs part of chronic issues, will continue to monitor over telemetry. Generalized body pain:Including headache, hip pain, lower belly pain, back pain, BLE pain. Urine analysis not overtly suggestive of UTI. We will continue with patient's home pain medication. Chronic medical conditions: History of CVA, embolic 2/2 PFO; anxiety/depression For history of CVA, embolic. on warfarin. For patient's anxiety and depression, continue home medication including buspirone, mirtazapine and as needed lorazepam. Pt requested psychiatry eval, liasion evnikos appreciated. Resume other home meds as appropriate. Judicious narcotic use given addiction history. DVT prophylaxis:c/w Coumadin. Full code Appreciate PT/OT eval, patient does not want rehab. She is being discharged home with home health with following instruction at the point of discharge: Follow-up with your primary care physician within a week time. You will be given a tapering dose of prednisone, take prednisone as prescribed. You need follow-up with Coumadin clinic in 3 days upon discharge, you will need blood test PT/INR in 3 days at Coumadin clinic, you will be evaluated for necessary dose adjustment of your warfarin. Take your warfarin regularly as prescribed. You will likely benefit fromfollow-up with GI servicesregarding complaint of globus sensation as it likely will be correlated to esophageal dysmotility and or GERD. Take your medications as prescribed. Discharge Exam GENERAL: Alert and oriented x3. NAD, on 4L NC O2 HEENT: No pallor, no icterus. Pupils equal, round and reactive to light. Oral mucosa moist. NECK: No JVD, no neck masses. HEART: S1 and S2 heard. Regular rate and rhythm. No murmur, no gallop. RESPIRATORY SYSTEM: Normal AP diameter. No accessory muscle use. no wheezing, no crackles. ABDOMEN: Soft, bowel sounds present, nontender, no distention. CENTRAL NERVOUS SYSTEM: No facial droop. Speech is clear. Obeys simple commands. Moves extremities. EXTREMITIES: No edema, no erythema seen. Updated Medication List Medication Instructions Recorded Confirmed Type albuterol sulfate 5 mg/mL(0.5 %) 2.5 mg inhalation DIRECTED PRN 08/20/22 08/20/22 History solution for nebulization Shortness Of Breath Or Wheezing albuterol sulfate 90 mcg/actuation 2 puff inhalation QID 08/20/22 08/20/22 History aerosol inhaler baclofen 10 mg tablet 10 mg PO TID PRN Muscle Pain 08/20/22 08/20/22 History buspirone 10 mg tablet 20 mg PO AMHS 08/20/22 08/20/22 History cholecalciferol (vitamin D3) 25 25 mcg PO DAILY 08/20/22 08/20/22 History mcg (1,000 unit) capsule (Vitamin D3) fluticasone fur. 100 mcg-umeclid 1 ea inhalation QAM 08/20/22 08/20/22 History 62.5 mcg-vilant 25 mcg inhalat.powder (Trelegy Ellipta) furosemide 20 mg tablet (Lasix) 20 mg PO DAILY PRN .SWELLING IN 08/20/22 08/20/22 History LOWER LEGS gabapentin 300 mg capsule 300 mg PO HS 08/20/22 08/20/22 History isosorbide mononitrate 30 mg 30 mg PO DAILY 08/20/22 08/20/22 History tablet,extended release 24 hr lorazepam 0.5 mg tablet 0.5 mg PO TID PRN Anxiety 08/20/22 08/20/22 History mirtazapine 30 mg tablet 30 mg PO HS 08/20/22 08/20/22 History nystatin 100,000 unit/gram topical 1 applic topical BID 08/20/22 08/20/22 Hi story powder (Nyamyc) tramadol 100 mg tablet 100 mg PO Q8 PRN .MOD-SEVERE PAIN 08/20/22 08/20/22 History warfarin 5 mg tablet 5 mg PO QPM 08/20/22 08/20/22 History guaifenesin 600 mg tablet, 600 mg PO Q12 7 days #14 tabs 08/24/22 Rx extended release 12 hr (Mucinex) hydroxyzine HCl 25 mg tablet 25 mg PO Q8H PRN anxiety #90 tabs 08/24/22 Rx prednisone 20 mg tablet 40 mg PO DAILY 6 days #8 tabs 08/24/22 Rx Hospital Stay Data Consultations 08/21/22 13:22 Consult Behavioral Health Liaison Routine Diagnostic Imagining Performed 08/20/22 20:48 CT head/brain wo con Urgent 08/21/22 11:30 FL video swallow Routine Pending Results Patient Have Any Pending Studies at Discharge: No Discharge Instructions Given to Patient (Per Discharging Provider) Follow-up with your primary care physician within a week time. You will be given a tapering dose of prednisone, take prednisone as prescribed. You need follow-up with Coumadin clinic in 3 days upon discharge, you will need blood test PT/INR in 3 days at Coumadin clinic, you will be evaluated for necessary dose adjustment of your warfarin. Take your warfarin regularly as prescribed. You will likely benefit fromfollow-up with GI servicesregarding complaint of globus sensation as it likely will be correlated to esophageal dysmotility and or GERD. Take your medications as prescribed. Total Time Total Time Spent Total Time Spent (In Minutes): 45
[2022-08-24] MEDS: WARFARIN SOD 5 MG TAB PO SCH (17:21)
== END 2022-08-24 18:18 | disposition home health service (06) | DRG 189 ==
LOC: ED 14:19 → 2S 23:32
DX: E87.20 Acidosis, unspecified; Q21.12 Patent foramen ovale; J44.1 Chronic obstructive pulmonary disease with (acute) exacerbation; E66.01 Morbid (severe) obesity due to excess calories; J96.21 Acute and chronic respiratory failure with hypoxia; J96.01 Acute respiratory failure with hypoxia; I42.9 Cardiomyopathy, unspecified; G89.4 Chronic pain syndrome; F41.1 Generalized anxiety disorder; Z86.73 Personal history of transient ischemic attack (TIA), and cerebral infarction without residual deficits; D68.00 Von Willebrand disease, unspecified; I25.2 Old myocardial infarction; Z99.81 Dependence on supplemental oxygen; F43.10 Post-traumatic stress disorder, unspecified; I10 Essential (primary) hypertension; Z79.01 Long term (current) use of anticoagulants; Z88.6 Allergy status to analgesic agent; R04.2 Hemoptysis; Z91.14 Patient's other noncompliance with medication regimen; Z28.310 Unvaccinated for COVID-19; I48.0 Paroxysmal atrial fibrillation

== ENCOUNTER 2023-07-15 13:20 | Inpatient (IN) ==
[2023-07-15 13:56] LABS: Base Excess VBG 9.6 mEq/L; HCO3 VBG 39 mmol/L; Oxygen Saturation VBG < 60.0 %; PCO2 VBG 73 mmHg (38-50); PO2 VBG 26 mmHg; pH VBG 7.33 (7.36-7.41)
[2023-07-15] MEDS ORDERED: methylPREDNISolone 125 MG/2 ML VIAL IV STA (14:10)
[2023-07-15] MEDS ORDERED: ALBUT/IPRATROP 3MG/0.5MG NEB 3 ML VIAL NEB ONE (14:10)
[2023-07-15] MEDS ORDERED: MoRPHine SULFATE 2 MG/ML CARP IV STA (14:12)
--- NOTE | 2023-07-15 14:12 | Emergency Department Note ---
Impression & Plan Acute exacerbation of chronic obstructive pulmonary disease, Chronic respiratory failure with hypoxia ED Provider Note NAME: YAZAN MCKEON AGE: 63 SEX: F : 1960 ARRIVES VIA: Ambulance INFORMANT: Patient ED PROVIDER(S): Ej Fuenets DO CHIEF COMPLAINT: shortness of breath HPI: Patient is a 63-year-old female with a past medical history of A-fib on Coumadin, COPD with chronic respiratory failure on 4 L nasal cannula presents the ER for shortness of breath which has been present and worsening for the past 2 to 3 days. She admits to worsening cough. Denies any fevers but has been feeling hot and cold. No headache or change in vision. Admits to chest pain which has been present for the past 2 to 3 days. Worse with pushing on her chest as well as movement. Denies any belly pain but does have some diarrhea. No dysuria, urgency, or frequency. No other exacerbating or remitting factors. PAST MEDICAL HISTORY:See Below PAST SURGICAL HISTORY:See Below FAMILY HISTORY:See Below SOCIAL HISTORY:See Below HOME MEDICATIONS:See Below ALLERGIES:See Below VITALS:See Below PHYSICAL EXAMINATION: GENERAL: Sitting up in bed, alert, morbidly obese, disheveled, nontoxic, 4 L nasal cannula EYE EXAM: normal conjunctiva. PERRL and EOM's grossly intact. OROPHARYNX: mucous membranes are moist NECK: supple, no nuchal rigidity, no adenopathy, non-tender LUNGS: Diffuse wheezing bilateral. Normal chest wall mechanics HEART: no murmurs, S1 normal and S2 normal ABDOMEN: abdomen soft, non-tender, normo-active bowel sounds, no masses, no rebound or guarding. UPPER EXTREMITIES: upper extremities are grossly normal. LOWER EXTREMITIES: No pitting edema. Calves are equal bilaterally NEURO EXAM: Normal sensorium, cranial nerves II-XII grossly intact, normal speech, no gross weakness of arms, no gross weakness of legs. MEDICAL DECISION MAKING: Patient is a 63-year-old female who presents ER for above-stated complaint. IV was established blood work was obtained. External records reviewed. Showed no significant leukocytosis. Mild anemia at 9.5. INR 2.1. Dimer negative. VBG with a pH of 7.33 and a CO2 of 73. BMP along with LFTs was unremarkable. Tr oponin was negative. Viral panel was negative. Chest x-ray was unremarkable. Patient was given an hour-long neb treatment as well as steroids. Updated at bedside. Discussed with hospitalist for further evaluation management treatment. Patient was given 2 mg of morphine for chronic pain. Triage Nursing notes reviewed. Limited review of prior medical records performed Vital Signs: reviewed and remarkable for no significant abnormalities Differential diagnosis: Differential diagnoses includes but is not limited to pneumonia, bronchitis, C OPD/Asthma exacerbation, pneumothorax, pulmonary embolism, congestive heart failure, acute coronary syndrome ER treatment provided: See below Diagnostics interpreted by me include EKG and cardiac monitoring as listed below: -Cardiac Monitoring: An order was placed for continuous cardiac monitoring. The monitor shows a rate of 90 with sinus rhythm. -ECG: Sinus rhythm rate 89 Normal axis No PVCs QTc 438 -Laboratory studies:Interpreted by me as stated above in MDM and shown below. Imaging studies: Xrays: As interpreted by me: Portable AP upright 1 view of the chest shows no focal infiltrate CTs show: none Consultation(s): As described in [facility] Procedures:none Critical Care: None Past Med/Surg History Medical History (Updated 07/15/23 @ 20:18 by Ej Fuentes DO) Anemia Anticoagulated on Coumadin Anxiety and depression Chronic pain on daily narcotics (tramadol PRN) Chronic respiratory failure with hypoxia Congestive heart failure follows with [facility] cardiology (Patricia banks) COPD (chronic obstructive pulmonary disease) Degenerative disc disease Dementia "very early stages" Alert and oriented x3. granddaughter is the caregiver of patient. Diarrhea started about 1 year ago -- will come and go. History of COVID-19 Spring 2020. treated at [facility] inpatient. symptoms included: sob, cough, desaturation 84-87%, congestion, headache, fatigue. no ventilator at the time. no current problems. History of stroke "embolic stroke, underlying PFO" total of 9 strokes -> last stroke ~6+years ago. damaged urinary nerve and mild left sided weakness. Hypertension Morbid obesity On home oxygen therapy continuous 3lpm via n/c. (will increase to 4lpm via n/c if needed) Osteoarthritis Paroxysmal A-fib feels her heart race at times. Peripheral neuropathy Post traumatic stress disorder Sleep apnea mild RUFINA (dx in ) no machine currently -- pt to have another sleep study february 2023. Submucosal lesion of stomach Noted on EGD 11/06/20 Urinary incontinence Surgical History (Updated 01/12/23 @ 09:09 by Aria Alva RN) H/O colonoscopy H/O esophagogastroduodenoscopy History of cardiac cath [facility] - "long time ago" -- pt unsure of details. History of cataract surgery bilateral Hx of lumpectomy left breast (benign) Status post cholecystectomy Status post hernia repair Right inguinal Status post hysterectomy MERT with BSO Family History (Updated 01/12/23 @ 09:11 by Aria Alva RN) Grandmother (Maternal) FHx: bladder cancer Father FHx: stroke Other Heart disease No family history of adverse response to anesthesia Social History Smoking Status: Former smoker Tobacco Type: Cigarettes Second Hand Exposure: No; Do You Dip or Chew Tobacco: No; Hx Alcohol Use: No Hx Substance Use: No Preferred Language: Vietnamese Communication Ability: Effective Experimental Psychologist Required: No Beliefs That Will Affect Care: None marital status: / Current Living Situation: Alone Current Living Situation Comment: in march Feels Safe at Home: Yes Assistive Devices: Denture - Upper, Glasses, Hospital Bed, Nebulizer, Oxygen - Continuous, Walker and Wheelchair Allergies Allergies Allergy/AdvReac Type Severity Reaction Status Date / Time aspirin Allergy Unknown TAKES Verified 07/15/23 16:00 COUMADIN salicylates AdvReac Unknown ?DUE TO Verified 07/15/23 16:00 COUMADIN? Home Meds Home Medications Medication Instructions Recorded Confirmed albuterol sulfate 5 mg/mL(0.5 %) 2.5 mg inhalation DIRECTED PRN 08/20/22 07/15/23 solution for nebulization Shortness Of Breath Or Wheezing albuterol sulfate 90 mcg/actuation 2 puff inhalation QID PRN sob 08/20/22 07/15/23 aerosol inhaler baclofen 10 mg tablet 10 mg PO TID PRN Muscle Pain 08/20/22 07/15/23 buspirone 10 mg tablet 20 mg PO AMHS 08/20/22 07/15/23 cholecalciferol (vitamin D3) 25 25 mcg PO QAM 08/20/22 07/15/23 mcg (1,000 unit) capsule (Vitamin D3) furosemide 20 mg tablet (Lasix) 20 mg PO DAILY PRN .SWELLING IN 10/06/22 08/31/23 LOWER LEGS isosorbide mononitrate 30 mg 30 mg PO QAM 08/20/22 07/15/23 tablet,extended release 24 hr lorazepam 0.5 mg tablet 0.5 mg PO Q8 PRN Anxiety 08/20/22 07/15/23 mirtazapine 30 mg tablet 30 mg PO HS 08/20/22 07/15/23 tramadol 100 mg tablet 100 mg PO Q8 PRN .MOD-SEVERE PAIN 08/20/22 07/15/23 warfarin 5 mg tablet 2.5 mg PO MOWEFR@1600 08/20/22 07/15/23 ferrous sulfate 325 mg (65 mg 325 mg PO QAM 01/12/23 07/15/23 iron) tablet acetaminophen 300 mg-codeine 30 mg 1 tab PO Q6 PRN Moderate Pain 07/15/23 07/15/23 tablet (Scale Score 5-6) fluticasone propionate 115 2 puff inhalation [facility] 07/15/23 07/15/23 mcg-salmeterol 21 mcg/actuation HFA inhaler (Advair HFA) metoprolol succinate 25 mg 25 mg PO QAM 07/15/23 07/15/23 tablet,extended release 24 hr omeprazole 20 mg capsule,delayed 20 mg PO AMHS 07/15/23 07/15/23 release potassium chloride 10 mEq 10 meq PO AMHS 07/15/23 07/15/23 capsule,extended release solifenacin 10 mg tablet 10 mg PO QAM 07/15/23 07/15/23 warfarin 5 mg tablet 5 mg PO SUTUTHSA 07/15/23 07/15/23 Results & Data (ED) Vital Signs Vital Signs - 24 hr 07/15/23 13:13 07/15/23 13:13 07/15/23 13:13 Temperature 37.1 C Temperature Source Oral Pulse Rate 90 Pulse Rate from SpO2 Sensor Respiratory Rate 16 Respiratory Effort / Characteristics Spontaneous Blood Pressure 108/59 L Blood Pressure Mean 75 Pulse Oximetry 98 Oxygen Delivery Method Nasal Cannula Nasal Cannula Oxygen Flow Rate 4 Sepsis New/Unexplained Change in Mental Status No Sepsis Action Taken by Nursing No Action Required 07/15/23 13:13 07/15/23 13:32 07/15/23 15:13 Temperature Temperature Source Pulse Rate 89 Pulse Rate from SpO2 Sensor Respiratory Rate 20 Respiratory Effort / Characteristics Blood Pressure Blood Pressure Mean Pulse Oximetry 92 Oxygen Delivery Method Nasal Cannula Room Air Oxygen Flow Rate 4 Sepsis New/Unexplained Change in Mental Status Sepsis Action Taken by Nursing 07/15/23 13:33 07/15/23 14:00 07/15/23 14:12 Temperature Temperature Source Pulse Rate 89 86 87 Pulse Rate from SpO2 Sensor 90 89 Respiratory Rate 16 15 24 Respiratory Effort / Characteristics Blood Pressure Blood Pressure Mean Pulse Oximetry 95 93 Oxygen Delivery Method Oxygen Flow Rate Sepsis New/Unexplained Change in Mental Status Sepsis Action Taken by Nursing 07/15/23 14:30 07/15/23 15:00 07/15/23 15:30 Temperature Temperature Source Pulse Rate 84 83 84 Pulse Rate from SpO2 Sensor 84 82 84 Respiratory Rate 16 28 H 20 Respiratory Effort / Characteristics Blood Pressure 114/64 Blood Pressure Mean 80 Pulse Oximetry 96 98 95 Oxygen Delivery Method Oxygen Flow Rate Sepsis New/Unexplained Change in Mental Status Sepsis Action Taken by Nursing 07/15/23 15:45 07/15/23 15:45 07/15/23 16:00 Temperature Temperature Source Pulse Rate 85 85 Pulse Rate from SpO2 Sensor 85 Respiratory Rate 26 H 12 Respiratory Effort / Characteristics Blood Pressure 133/81 123/74 Blood Pressure Mean 104 90 Pulse Oximetry 94 Oxygen Delivery Method Oxygen Flow Rate Sepsis New/Unexplained Change in Mental Status Sepsis Action Taken by Nursing 07/15/23 16:01 07/15/23 16:30 07/15/23 17:31 Temperature Temperature Source Pulse Rate 85 85 85 Pulse Rate from SpO2 Sensor 80 83 Respiratory Rate 17 13 Respiratory Effort / Characteristics Blood Pressure Blood Pressure Mean Pulse Oximetry 95 95 Oxygen Delivery Method Oxygen Flow Rate Sepsis New/Unexplained Change in Mental Status Sepsis Action Taken by Nursing Laboratory Data 07/15/23 13:45 Lab Results 07/15/23 07/15/23 07/15/23 Range/Units 13:45 13:45 13:45 WBC 7.39 (4.8-10.8) K/ul RBC 3.49 L (4.20-5.40) M/uL Hgb 9.5 L (12.0-16.0) g/dl Hct 33.0 L (37.0-47.0) % MCV 94.6 (80.0-100.0) fL MCH 27.2 (25.0-34.0) pg MCHC 28.8 L (32.0-36.0) g/dL RDW Std Deviation 71.6 H (36.4-46.3) fL RDW Coeff of Ursula 20.3 H (11.5-14.5) % Plt Count 455 H (130-400) K/uL MPV 8.9 L (9.4-12.4) fL Immature Gran % (Auto) 0.8 % Neut % (Auto) 68.6 % Lymph % (Auto) 21.4 % [place] % (Auto) 7.6 % Eos % (Auto) 1.2 % Baso % (Auto) 0.4 % Neut # (Auto) 5.07 (1.40-6.50) K/uL Lymph # (Auto) 1.58 (1.20-3.40) K/uL [place] # (Auto) 0.56 (0.11-0.59) K/uL Eos # (Auto) 0.09 (0.00-0.50) K/uL Baso # (Auto) 0.03 (0.00-0.20) K/uL Immature Gran # (Auto) 0.06 (0.01-0.20) K/uL Absolute Nucleated RBC 0.02 (0.00-0.12) K/uL Nucleated RBC % (auto) 0.3 % Polychromasia 1+ Anisocytosis Present Stomatocytes 1+ PT (9.0-12.0) Seconds INR (0.9-1.1) D-Dimer < 190 (0-500) ug/L FEU VBG pH 7.33 L (7.36-7.41) VBG pCO2 73 H (38-50) mmHg VBG pO2 26 mmHg VBG HCO3 39 mmol/L VBG O2 Saturation < 60.0 % VBG Base Excess 9.6 mEq/L Sodium (136-145) mmol/L Potassium (3.5-5.1) mmol/L Chloride (98-107) mmol/L Carbon Dioxide (21-32) mmol/L Anion Gap (3-11) BUN (6-23) mg/dl Creatinine (0.6-1.2) mg/dl Est Cr Clr Drug Dosing ml/min Est GFR ( Amer) ml/min Est GFR (Non-Af Amer) ml/min BUN/Creatinine Ratio (10-20) Glucose (70-99(Fasting)) mg/dl Calcium (8.6-10.3) mg/dl Total Bilirubin (0.2-1.0) mg/dl AST (13-39) U/L ALT (7-52) U/L Alkaline Phosphatase (34-104) U/L Troponin I High Sens (0-14) pg/ml B-Natriuretic Peptide (0-100) pg/ml Total Protein (6.0-8.3) gm/dl Albumin (3.4-5.0) gm/dl Globulin (2.5-4.0) gm/dl Albumin/Globulin Ratio (0.9-2) Adenovirus (PCR) (NotDetected) B. pertussis DNA (PCR) (NotDetected) B.parapertussis DNA PCR (NotDetected) C. pneumoniae DNA (PCR) (NotDetected) Coronavirus OC43 (PCR) (NotDetected) Coronavirus HKU1 (PCR) (NotDetected) Coronavirus 229E (PCR) (NotDetected) SARS-CoV-2 (PCR) (NotDetected) Coronavirus NL63 (PCR) (NotDetected) Human Metapneumovir PCR (NotDetected) Influenza Type A (PCR) (NotDetected) Influenza Type B (PCR) (NotDetected) M. pneumoniae (PCR) (NotDetected) Parainfluenza 1 (PCR) (NotDetected) Parainfluenza 2 (PCR) (NotDetected) Parainfluenza 3 (PCR) (NotDetected) Parainfluenza 4 (PCR) (NotDetected) RSV (PCR) (NotDetected) Entero/Rhino (PCR) (NotDetected) 07/15/23 07/15/23 07/15/23 Range/Units 13:45 15:09 15:09 WBC (4.8-10.8) K/ul RBC (4.20-5.40) M/uL Hgb (12.0-16.0) g/dl Hct (37.0-47.0) % MCV (80.0-100.0) fL MCH (25.0-34.0) pg MCHC (32.0-36.0) g/dL RDW Std Deviation (36.4-46.3) fL RDW Coeff of Ursula (11.5-14.5) % Plt Count (130-400) K/uL MPV (9.4-12.4) fL Immature Gran % (Auto) % Neut % (Auto) % Lymph % (Auto) % [place] % (Auto) % Eos % (Auto) % Baso % (Auto) % Neut # (Auto) (1.40-6.50) K/uL Lymph # (Auto) (1.20-3.40) K/uL [place] # (Auto) (0.11-0.59) K/uL Eos # (Auto) (0.00-0.50) K/uL Baso # (Auto) (0.00-0.20) K/uL Immature Gran # (Auto) (0.01-0.20) K/uL Absolute Nucleated RBC (0.00-0.12) K/uL Nucleated RBC % (auto) % Polychromasia Anisocytosis Stomatocytes PT 22.3 H (9.0-12.0) Seconds INR 2.1 H (0.9-1.1) D-Dimer (0-500) ug/L FEU VBG pH (7.36-7.41) VBG pCO2 (38-50) mmHg VBG pO2 mmHg VBG HCO3 mmol/L VBG O2 Saturation % VBG Base Excess mEq/L Sodium 141 (136-145) mmol/L Potassium 4.0 (3.5-5.1) mmol/L Chloride 99 (98-107) mmol/L Carbon Dioxide 38 H (21-32) mmol/L Anion Gap 4 (3-11) BUN 13 (6-23) mg/dl Creatinine 0.73 (0.6-1.2) mg/dl Est Cr Clr Drug Dosing 111.2 ml/min Est GFR ( Amer) 101.6 ml/min Est GFR (Non-Af Amer) 87.7 ml/min BUN/Creatinine Ratio 17.8 (10-20) Glucose 106 H (70-99(Fasting)) mg/dl Calcium 8.1 L (8.6-10.3) mg/dl Total Bilirubin 0.1 L (0.2-1.0) mg/dl AST 12 L (13-39) U/L ALT 9 (7-52) U/L Alkaline Phosphatase 82 (34-104) U/L Troponin I High Sens 5.1 (0-14) pg/ml B-Natriuretic Peptide (0-100) pg/ml Total Protein 6.2 (6.0-8.3) gm/dl Albumin 3.3 L (3.4-5.0) gm/dl Globulin 2.9 (2.5-4.0) gm/dl Albumin/Globulin Ratio 1.1 (0.9-2) Adenovirus (PCR) (NotDetected) B. pertussis DNA (PCR) (NotDetected) B.parapertussis DNA PCR (NotDetected) C. pneumoniae DNA (PCR) (NotDetected) Coronavirus OC43 (PCR) (NotDetected) Coronavirus HKU1 (PCR) (NotDetected) Coronavirus 229E (PCR) (NotDetected) SARS-CoV-2 (PCR) (NotDetected) Coronavirus NL63 (PCR) (NotDetected) Human Metapneumovir PCR (NotDetected) Influenza Type A (PCR) (NotDetected) Influenza Type B (PCR) (NotDetected) M. pneumoniae (PCR) (NotDetected) Parainfluenza 1 (PCR) (NotDetected) Parainfluenza 2 (PCR) (NotDetected) Parainfluenza 3 (PCR) (NotDetected) Parainfluenza 4 (PCR) (NotDetected) RSV (PCR) (NotDetected) Entero/Rhino (PCR) (NotDetected) 07/15/23 07/15/23 Range/Units 15:09 Unknown WBC (4.8-10.8) K/ul RBC (4.20-5.40) M/uL Hgb (12.0-16.0) g/dl Hct (37.0-47.0) % MCV (80.0-100.0) fL MCH (25.0-34.0) pg MCHC (32.0-36.0) g/dL RDW Std Deviation (36.4-46.3) fL RDW Coeff of Ursula (11.5-14.5) % Plt Count (130-400) K/uL MPV (9.4-12.4) fL Immature Gran % (Auto) % Neut % (Auto) % Lymph % (Auto) % [place] % (Auto) % Eos % (Auto) % Baso % (Auto) % Neut # (Auto) (1.40-6.50) K/uL Lymph # (Auto) (1.20-3.40) K/uL [place] # (Auto) (0.11-0.59) K/uL Eos # (Auto) (0.00-0.50) K/uL Baso # (Auto) (0.00-0.20) K/uL Immature Gran # (Auto) (0.01-0.20) K/uL Absolute Nucleated RBC (0.00-0.12) K/uL Nucleated RBC % (auto) % Polychromasia Anisocytosis Stomatocytes PT (9.0-12.0) Seconds INR (0.9-1.1) D-Dimer (0-500) ug/L FEU VBG pH (7.36-7.41) VBG pCO2 (38-50) mmHg VBG pO2 mmHg VBG HCO3 mmol/L VBG O2 Saturation % VBG Base Excess mEq/L Sodium (136-145) mmol/L Potassium (3.5-5.1) mmol/L Chloride (98-107) mmol/L Carbon Dioxide (21-32) mmol/L Anion Gap (3-11) BUN (6-23) mg/dl Creatinine (0.6-1.2) mg/dl Est Cr Clr Drug Dosing ml/min Est GFR ( Amer) ml/min Est GFR (Non-Af Amer) ml/min BUN/Creatinine Ratio (10-20) Glucose (70-99(Fasting)) mg/dl Calcium (8.6-10.3) mg/dl Total Bilirubin (0.2-1.0) mg/dl AST (13-39) U/L ALT (7-52) U/L Alkaline Phosphatase (34-104) U/L Troponin I High Sens (0-14) pg/ml B-Natriuretic Peptide 204 H (0-100) pg/ml Total Protein (6.0-8.3) gm/dl Albumin (3.4-5.0) gm/dl Globulin (2.5-4.0) gm/dl Albumin/Globulin Ratio (0.9-2) Adenovirus (PCR) Not Detected (NotDetected) B. pertussis DNA (PCR) Not Detected (NotDetected) B.parapertussis DNA PCR Not Detected (NotDetected) C. pneumoniae DNA (PCR) Not Detected (NotDetected) Coronavirus OC43 (PCR) Not Detected (NotDetected) Coronavirus HKU1 (PCR) Not Detected (NotDetected) Coronavirus 229E (PCR) Not Detected (NotDetected) SARS-CoV-2 (PCR) Not Detected (NotDetected) Coronavirus NL63 (PCR) Not Detected (NotDetected) Human Metapneumovir PCR Not Detected (NotDetected) Influenza Type A (PCR) Not Detected (NotDetected) Influenza Type B (PCR) Not Detected (NotDetected) M. pneumoniae (PCR) Not Detected (NotDetected) Parainfluenza 1 (PCR) Not Detected (NotDetected) Parainfluenza 2 (PCR) Not Detected (NotDetected) Parainfluenza 3 (PCR) Not Detected (NotDetected) Parainfluenza 4 (PCR) Not Detected (NotDetected) RSV (PCR) Not Detected (NotDetected) Entero/Rhino (PCR) Not Detected (NotDetected) Administered Medications Discontinued Medications Albuterol (Albut/Ipratrop 3mg/0.5mg Neb 3 Ml Vial) 12 ml NEB ONE ONE; Protocol Stop: 07/15/23 14:11 Last Admin: 07/15/23 14:32 Dose: 12 ml Documented By: GEETHA Furosemide (Furosemide 40 Mg/4 Ml Vial) 40 mg IV ONE ONE Stop: 07/15/23 17:24 Last Admin: 07/15/23 17:50 Dose: 40 mg Documented By: GEETHA Methylprednisolone (Methylprednisolone 125 Mg/2 Ml Vial) 60 mg IV NOW STA Stop: 07/15/23 14:11 Last Admin: 07/15/23 14:32 Dose: 60 mg Documented By: GEETHA Morphine Sulfate (Morphine Sulfate 2 Mg/Ml Carp) 2 mg IV NOW STA Stop: 07/15/23 14:13 Last Admin: 07/15/23 14:32 Dose: 2 mg Documented By: S Imaging Data Radiologist's Impression: Chest X-Ray 07/15/23 13:36 SINGLE VIEW CHEST CLINICAL HISTORY: Dyspnea FINDINGS: An AP, portable, upright chest radiograph is compared to study dated 08/20/2022. Correlation is made with chest CT dated 09/16/2015. The examination is degraded by portable technique, large body habitus, and apical lordotic positioning. The cardiomediastinal silhouette is unremarkable. There is bibasilar atelectasis. The lungs and pleural spaces are otherwise clear. No pne umothorax is seen. The skeletal structures are osteopenic. The bony thorax is grossly intact. IMPRESSION: No active disease in the chest. ACT 112: Negative or not required by law. Electronically signed by: Donavon Littlejohn M.D. 07/15/2023 2:28 PM Discharge Plan Visit Data Chief Complaint: Shortness of Breath/Dyspnea Stated Complaint: Increasing SOB ED Provider: Ej Fuentes Discharge Problem: Acute exacerbation of chronic obstructive pulmonary disease, Chronic respiratory failure with hypoxia Patient Disposition: Admitted As Inpatient
[2023-07-15 14:17] LABS: Hemoglobin 9.5 g/dl (12.0-16.0); Mean Corpuscular Hemoglobin 27.2 pg (25.0-34.0); Mean Corpuscular Hgb Conc 28.8 g/dL (32.0-36.0); Mean Corpuscular Volume 94.6 fL (80.0-100.0); Mean Platelet Volume 8.9 fL (9.4-12.4); Nucleated RBC # (auto) 0.02 K/uL (0.00-0.12); Nucleated RBC % (auto) 0.3 %; Platelet Count 455 K/uL (130-400); RDW Coefficient of Variation 20.3 % (11.5-14.5); RDW Standard Deviation 71.6 fL (36.4-46.3); Red Blood Count 3.49 M/uL (4.20-5.40); White Blood Count 7.39 K/ul (4.8-10.8)
[2023-07-15 14:26] LABS: Anisocytosis Present; Basophils # (auto) 0.03 K/uL (0.00-0.20); Basophils % (auto) 0.4 %; Eosinophils # (auto) 0.09 K/uL (0.00-0.50); Eosinophils % (auto) 1.2 %; Immature Granulocytes # (auto) 0.06 K/uL (0.01-0.20); Immature Granulocytes % (auto) 0.8 %; Lymphocytes # (auto) 1.58 K/uL (1.20-3.40); Lymphocytes % (auto) 21.4 %; Monocytes # (auto) 0.56 K/uL (0.11-0.59); Monocytes % (auto) 7.6 %; Neutrophils # (auto) 5.07 K/uL (1.40-6.50); Neutrophils % (auto) 68.6 %; Polychromasia 1+; Stomatocytes 1+
--- NOTE | 2023-07-15 14:29 | XRay Report ---
SINGLE VIEW CHEST CLINICAL HISTORY: Dyspnea FINDINGS: An AP, portable, upright chest radiograph is compared to study dated 08/20/2022. Correlation is made with chest CT dated 09/16/2015. The examination is degraded by portable technique, large body habitus, and apical lordotic positioning. The cardiomediastinal silhouette is unremarkable. There is bibasilar atelectasis. The lungs and pleural spaces are otherwise clear. No pneumothorax is seen. Th e skeletal structures are osteopenic. The bony thorax is grossly intact. IMPRESSION: No active disease in the chest. ACT 112: Negative or not required by law. Electronically signed by: Donavon Littlejohn M.D. 07/15/2023 2:28 PM
[2023-07-15 14:42] LABS: D Dimer < 190 ug/L FEU (0-500)
[2023-07-15 15:52] LABS: Albumin Globulin Ratio 1.1 (0.9-2); Albumin Level 3.3 gm/dl (3.4-5.0); BUN Creatinine Ratio 17.8 (10-20); Bilirubin,Total 0.1 mg/dl (0.2-1.0); Calcium 8.1 mg/dl (8.6-10.3); Creatinine Clr Calc Pharmacy 111.2 ml/min; Est GFR (African American) 101.6 ml/min; Est GFR (Non-African American) 87.7 ml/min; Globulin 2.9 gm/dl (2.5-4.0); Total Protein 6.2 gm/dl (6.0-8.3)
[2023-07-15 16:05] LABS: INR 2.1 (0.9-1.1); Prothrombin Time 22.3 Seconds (9.0-12.0)
--- NOTE | 2023-07-15 16:39 | History & Physical Report ---
Date of Service July 15, 2023 Assessment & Plan (1) COPD with exacerbation: (2) Atrial fibrillation: (3) History of stroke: (4) COPD (chronic obstructive pulmonary disease): (5) Chronic respiratory failure with hypoxia: (6) Congestive heart failure: (7) Anemia: Plan: Acute on Chronic COPD Exacerbation Acute on Chronic Hypoxic and hypercarbic respiratory Failure - Admit to med tele - Pt was started on IV solumedrol in the ER, given nebulizer x 1 hr-continued tight breath sounds, diffuse wheezing, patient does not feel significantly improved, will order Solu-Medrol 40 mg Q12, nebulizers every 4 hours and every 2 hours as needed shortness of breath, patient was given MS IV 2 mg in the ER. Patient is requesting dose of Ativan for anxiety as she uses this as a home medication. -Discussion regarding hospice withheld at bedside as the patient and her granddaughter brought this up reporting that they have been told previously that hospice may be an option for her. They have many questions regarding such including help at home, hospitalization, continued treatment of medical conditions. At this point time the patient is interested in continuing to treat the problem such as COPD with steroids and if infection she wants antibiotics. Can consider palliative care consultation if wanting more information regarding hospice and/or conversation to discuss goals of care. -Continue supportive care, patient is chronically on O2, 4 L at baseline. -VBG has been completed showing pH of 7.33, CO2 elevated at 70 -Afebrile, WBC 7.39 no leukocytosis -Does not appear to be infectious at this time -Respiratory viral panel is negative -BMP is only mildly elevated at 250, patient has been taking Lasix 40 mg twice daily at home, will give Lasix 40 mg IV now, place pure wick, strict I's and O's to see if this improves respiratory status Anemia -Hemoglobin of 9.3, hematocrit 33, no current need for transfusion, no overt bleeding, check guaiac as patient reports diarrhea and recently had supratherapeutic INR within the past week Anemia panel completed as an outpatient showing iron 17, TIBC 388, transferrin 4, B12 302, ferritin 9 - Indicative of iron deficiency anemia-patient reports that she has not picked this up [id number] and has been missing it for at least 2 weeks History of CVA, at least 9 strokes in the past - hx of PFO and hx of afib, on chronic anticoagulation with coumadin -Denies any focal weakness -PT/OT consults Sinus tachycardia Mild acute on Chronic diastolic CHF PFO Paroxysmal Afib - INR 2.1, trend with a.m. labs - give IV lasix now - re-assess volume status tmrw (currently on 80 PO daily) - Follows with Dr. Pacheco as outpatient, reports per last note tachycardia likely physiologic and related to her underlying lung disease, was started on metoprolol succinate 25 mg daily, continue isosorbide mononitrate, warfarin, furosemide, potassium Diarrhea - Reports this is increased recently, she had been on antibiotics in March for UTI as well as 2 weeks ago completed course of Bactrim - Check c. diff, stool culture, guiac stool Urinary Incontinence - place purwick - Pt reports hx of UTI, check UA and Urine culture Moderate protein malnutrition -Albumin is decreased at 3.3 -Consider nutrition consult -Granddaughter reports that she drinks primarily Pepsi at home, minimal water intake - BMI of 59.7 Depression and anxiety - Continue home antihypertensives -Allow Ativan as tolerates this at home DVT PPx: Teds, SCDs FEN/GI: Heart healthy diet Access/lines: 2 peripheral IVs CODE STATUS: Full code Dispo: Patient from home, previously has completed inpatient rehab, family has questions about home hospice, likely remain in the hospital x2 days History of Present Illness Chief Complaint: Shortness of breath Primary Care Provider: Roger Alexandra MD This is a 63-year-old female with PMHx of paroxysmal A-fib, chronic diastolic CHF, chronic hypoxic respiratory failure, COPD, obstructive sleep apnea, anemia, history of multiple strokes, prediabetes, hypothyroidism, depression who presents to the hospital with acute worsening shortness of breath over the past 2 to 3 days. Pt typically wears 4 L O2 at baseline, and had to increase to 5 L in the past 2- 3 days. Pt admits to having chills, no fever or sweats. She has not been sleeping well and feels wron out. Pt has nurses at home and home health care physician at home and are in the house from 8-4 and nurses come twice per week. Pt notes that she is having increased chest pressure, worse today and different, feels like she has somebody sitting on her chest. She has difficult taking deep breaths. Pt has referred pain radiating into her left arm and into jaw bilaterally. She feels this is occuring while she is short of breath. Pt has been being told by her home health nurses to come to the hospital due to more rattling, wheezing and fluid in her lungs however the patient had been refusing. Pt has hx of UTI, incontinent at baseline, denies being able to feel dysuria, has darkened urine but no hematuria. Pt has increased edema of her legs, no changes recently, but does take furosemide daily 80 mg daily and has been recently increased. At home her pulse ox sits around 88-93%. Yesterday she was hypoxic with sats at 73%. Pt has nebulizer at home but refuses to use it due to burning in her throat. She has difficulty at bedside completing full sentences due to her shortness of breath. Allergies Allergy/AdvReac Type Severity Reaction Status Date / Time aspirin Allergy Unknown TAKES Verified 07/15/23 16:00 COUMADIN salicylates AdvReac Unknown ?DUE TO Verified 07/15/23 16:00 COUMADIN? Home Medications Medication Instructions Recorded Confirmed Type albuterol sulfate 5 mg/mL(0.5 %) 2.5 mg inhalation DIRECTED PRN 08/20/22 07/15/23 History solution for nebulization Shortness Of Breath Or Wheezing albuterol sulfate 90 mcg/actuation 2 puff inhalation QID PRN sob 08/20/22 07/15/23 History aerosol inhaler baclofen 10 mg tablet 10 mg PO TID PRN Muscle Pain 08/20/22 07/15/23 History buspirone 10 mg tablet 20 mg PO AMHS 08/20/22 07/15/23 History cholecalciferol (vitamin D3) 25 25 mcg PO QAM 08/20/22 07/15/23 History mcg (1,000 unit) capsule (Vitamin D3) furosemide 20 mg tablet (Lasix) 20 mg PO DAILY PRN .SWELLING IN 08/20/22 07/15/23 History LOWER LEGS isosorbide mononitrate 30 mg 30 mg PO QAM 08/20/22 07/15/23 History tablet,extended release 24 hr lorazepam 0.5 mg tablet 0.5 mg PO Q8 PRN Anxiety 08/20/22 07/15/23 History mirtazapine 30 mg tablet 30 mg PO HS 08/20/22 07/15/23 History tramadol 100 mg tablet 100 mg PO Q8 PRN .MOD-SEVERE PAIN 08/20/22 07/15/23 History warfarin 5 mg tablet 2.5 mg PO MOWEFR@1600 08/20/22 07/15/23 History ferrous sulfate 325 mg (65 mg 325 mg PO QAM 01/12/23 07/15/23 History iron) tablet acetaminophen 300 mg-codeine 30 mg 1 tab PO Q6 PRN Moderate Pain 07/15/23 07/15/23 History tablet (Scale Score 5-6) fluticasone propionate 115 2 puff inhalation AMHS 07/15/23 07/15/23 History mcg-salmeterol 21 mcg/actuation HFA inhaler (Advair HFA) metoprolol succinate 25 mg 25 mg PO QAM 07/15/23 07/15/23 History tablet,extended release 24 hr omeprazole 20 mg capsule,delayed 20 mg PO AMHS 07/15/23 07/15/23 History release potassium chloride 10 mEq 10 meq PO AMHS 07/15/23 07/15/23 History capsule,extended release solifenacin 10 mg tablet 10 mg PO QAM 07/15/23 07/15/23 History warfarin 5 mg tablet 5 mg PO SUTUTHSA 07/15/23 07/15/23 History Past Med/Surg History Medical History (Updated 07/15/23 @ 16:42 by Izzy Anderson PA-C) Anemia Anticoagulated on Coumadin Anxiety and depression Chronic pain on daily narcotics (tramadol PRN) Chronic respiratory failure with hypoxia Congestive heart failure follows with [facility] cardiology ([facility]) COPD (chronic obstructive pulmonary disease) Degenerative disc disease Dementia "very early stages" Alert and oriented x3. granddaughter is the caregiver of patient. Diarrhea started about 1 year ago -- will come and go. History of COVID-19 Spring 2020. treated [address] [facility] inpatient. symptoms included: sob, cough, desaturation 84-87%, congestion, headache, fatigue. no ventilator at the time. no current problems. History of stroke "embolic stroke, underlying PFO" total of 9 strokes -> last stroke ~6+years ago. damaged urinary nerve and mild left sided weakness. Hypertension Morbid obesity On home oxygen therapy continuous 3lpm via n/c. (will increase to 4lpm via n/c if needed) Osteoarthritis Paroxysmal A-fib feels her heart race at times. Peripheral neuropathy Post traumatic stress disorder Sleep apnea mild RUFINA (dx in ) no machine currently -- pt to have another sleep study february 2023. Submucosal lesion of stomach Noted on EGD 11/06/20 Urinary incontinence Surgical History (Updated 01/12/23 @ 09:09 by Aria Alva RN) H/O colonoscopy H/O esophagogastroduodenoscopy History of cardiac cath [facility] - "long time ago" -- pt unsure of details. History of cataract surgery bilateral Hx of lumpectomy left breast (benign) Status post cholecystectomy Status post hernia repair Right inguinal Status post hysterectomy MERT with BSO Family History (Updated 01/12/23 @ 09:11 by Aria Alva, EMELY) Grandmother (Maternal) FHx: bladder cancer Father FHx: stroke Other Heart disease No family history of adverse response to anesthesia Social History Smoking Status: Former smoker Tobacco Type: Cigarettes Second Hand Exposure: No; Do You Dip or Chew Tobacco: No; Hx Alcohol Use: No Hx Substance Use: No Preferred Language: Beninese Communication Ability: Effective Electroencephalographic Technician Required: No Beliefs That Will Affect Care: None marital status: / Current Living Situation: Alone Current Living Situation Comment: in march Feels Safe at Home: Yes Assistive Devices: Denture - Upper, Glasses, Hospital Bed, Nebulizer, Oxygen - Continuous, Walker and Wheelchair Review of Systems Review of Systems: Constitutional: No fever, sweats or chills Eyes: No diplopia, no worsening or blurred vision ENT: normal hearing, no trouble swallowing Respiratory: As per HPI, +No cough, minimal sputum, +dyspnea at rest and on exertion Cardiovascular: No chest pain, tightness or palpitations Abdomen: No pain, nausea, vomiting, diarrhea or constipation Musculoskeletal: No joint pain, calf pain, swelling Neurologic: No weakness, numbness/tingling, or balance problems Psychiatric: No anxiety or depression Skin: No rash or itch Physical Exam Physical Exam: General: awake, alert, + mild distress, has difficulty completing full sentences due to shortness of breath, morbidly obese with BMI of 59.7 Head: Normocephalic, atraumatic ENT: PERRL, EOMI, no pharyngeal exudate, mucous membranes moist Chest: On 4 L NC, O2 sats 91%, dropped with minimal exertion, tight breath sounds, diffuse wheezing, restricted airflow, patient has difficulty with deep breaths Cardiac: Regular rate and rhythm, no murmur, no JVD, normal peripheral pulses, good capillary refill Abdominal: NABS x 4 quadrants, soft, nondistended, nontender to palpation, no rebound or guarding Extremities: Normal inspection, 2+ peripheral edema, nonpitting, no erythema, calfs nontender to palpation Psych: Normal mood and affect Neuro: AAO x 3, strength intact bilaterally and rated 4/5 throughout, no motor deficits, speech is clear, no peripheral sensory deficits Results & Data Results & Data Vital Signs (Past 12 Hours) Vital Signs Temp Pulse Resp BP Pulse Ox O2 Del Method O2 Flow Rate 07/15/23 16:30 85 13 95 07/15/23 16:01 85 17 95 07/15/23 16:00 85 12 123/74 94 07/15/23 15:45 133/81 07/15/23 15:45 85 26 H 07/15/23 15:30 84 20 95 07/15/23 15:00 83 28 H 98 07/15/23 14:30 84 16 114/64 96 07/15/23 14:12 87 24 93 07/15/23 14:00 86 15 07/15/23 13:33 89 16 95 07/15/23 15:13 Room Air 07/15/23 13:32 89 07/15/23 13:13 20 92 Nasal Cannula 4 07/15/23 13:13 Nasal Cannula 07/15/23 13:13 37.1 C 90 16 108/59 L 98 Nasal Cannula 4 Laboratory Results 07/15/23 07/15/23 07/15/23 Unknown 15:09 15:09 WBC RBC Hgb Hct MCV MCH MCHC RDW Std Deviation RDW Coeff of Ursula Plt Count MPV Immature Gran % (Auto) Neut % (Auto) Lymph % (Auto) [place] % (Auto) Eos % (Auto) Baso % (Auto) Neut # (Auto) Lymph # (Auto) [place] # (Auto) Eos # (Auto) Baso # (Auto) Immature Gran # (Auto) Absolute Nucleated RBC Nucleated RBC % (auto) Polychromasia Anisocytosis Stomatocytes PT INR D-Dimer VBG pH VBG pCO2 VBG pO2 VBG HCO3 VBG O2 Saturation VBG Base Excess Sodium 141 Potassium 4.0 Chloride 99 Carbon Dioxide 38 H Anion Gap 4 BUN 13 Creatinine 0.73 Est Cr Clr Drug Dosing 111.2 Est GFR ( Amer) 101.6 Est GFR (Non-Af Amer) 87.7 BUN/Creatinine Ratio 17.8 Glucose 106 H Calcium 8.1 L Total Bilirubin 0.1 L AST 12 L ALT 9 Alkaline Phosphatase 82 Troponin I High Sens B-Natriuretic Peptide 204 H Total Protein 6.2 Albumin 3.3 L Globulin 2.9 Albumin/Globulin Ratio 1.1 Adenovirus (PCR) Not Detected B. pertussis DNA (PCR) Not Detected B.parapertussis DNA PCR Not Detected C. pneumoniae DNA (PCR) Not Detected Coronavirus OC43 (PCR) Not Detected Coronavirus HKU1 (PCR) Not Detected Coronavirus 229E (PCR) Not Detected SARS-CoV-2 (PCR) Not Detected Coronavirus NL63 (PCR) Not Detected Human Metapneumovir PCR Not Detected Influenza Type A (PCR) Not Detected Influenza Type B (PCR) Not Detected M. pneumoniae (PCR) Not Detected Parainfluenza 1 (PCR) Not Detected Parainfluenza 2 (PCR) Not Detected Parainfluenza 3 (PCR) Not Detected Parainfluenza 4 (PCR) Not Detected RSV (PCR) Not Detected Entero/Rhino (PCR) Not Detected 07/15/23 07/15/23 07/15/23 15:09 13:45 13:45 WBC RBC Hgb Hct MCV MCH MCHC RDW Std Deviation RDW Coeff of Ursula Plt Count MPV Immature Gran % (Auto) Neut % (Auto) Lymph % (Auto) [place] % (Auto) Eos % (Auto) Baso % (Auto) Neut # (Auto) Lymph # (Auto) [place] # (Auto) Eos # (Auto) Baso # (Auto) Immature Gran # (Auto) Absolute Nucleated RBC Nucleated RBC % (auto) Polychromasia Anisocytosis Stomatocytes PT 22.3 H INR 2.1 H D-Dimer < 190 VBG pH VBG pCO2 VBG pO2 VBG HCO3 VBG O2 Saturation VBG Base Excess Sodium Potassium Chloride Carbon Dioxide Anion Gap BUN Creatinine Est Cr Clr Drug Dosing Est GFR ( Amer) Est GFR (Non-Af Amer) BUN/Creatinine Ratio Glucose Calcium Total Bilirubin AST ALT Alkaline Phosphatase Troponin I High Sens 5.1 B-Natriuretic Peptide Total Protein Albumin Globulin Albumin/Globulin Ratio Adenovirus (PCR) B. pertussis DNA (PCR) B.parapertussis DNA PCR C. pneumoniae DNA (PCR) Coronavirus OC43 (PCR) Coronavirus HKU1 (PCR) Coronavirus 229E (PCR) SARS-CoV-2 (PCR) Coronavirus NL63 (PCR) Human Metapneumovir PCR Influenza Type A (PCR) Influenza Type B (PCR) M. pneumoniae (PCR) Parainfluenza 1 (PCR) Parainfluenza 2 (PCR) Parainfluenza 3 (PCR) Parainfluenza 4 (PCR) RSV (PCR) Entero/Rhino (PCR) 07/15/23 07/15/23 13:45 13:45 WBC 7.39 RBC 3.49 L Hgb 9.5 L Hct 33.0 L MCV 94.6 MCH 27.2 MCHC 28.8 L RDW Std Deviation 71.6 H RDW Coeff of Ursula 20.3 H Plt Count 455 H MPV 8.9 L Immature Gran % (Auto) 0.8 Neut % (Auto) 68.6 Lymph % (Auto) 21.4 [place] % (Auto) 7.6 Eos % (Auto) 1.2 Baso % (Auto) 0.4 Neut # (Auto) 5.07 Lymph # (Auto) 1.58 [place] # (Auto) 0.56 Eos # (Auto) 0.09 Baso # (Auto) 0.03 Immature Gran # (Auto) 0.06 Absolute Nucleated RBC 0.02 Nucleated RBC % (auto) 0.3 Polychromasia 1+ Anisocytosis Present Stomatocytes 1+ PT INR D-Dimer VBG pH 7.33 L VBG pCO2 73 H VBG pO2 26 VBG HCO3 39 VBG O2 Saturation < 60.0 VBG Base Excess 9.6 Sodium Potassium Chloride Carbon Dioxide Anion Gap BUN Creatinine Est Cr Clr Drug Dosing Est GFR ( Amer) Est GFR (Non-Af Amer) BUN/Creatinine Ratio Glucose Calcium Total Bilirubin AST ALT Alkaline Phosphatase Troponin I High Sens B-Natriuretic Peptide Total Protein Albumin Globulin Albumin/Globulin Ratio Adenovirus (PCR) B. pertussis DNA (PCR) B.parapertussis DNA PCR C. pneumoniae DNA (PCR) Coronavirus OC43 (PCR) Coronavirus HKU1 (PCR) Coronavirus 229E (PCR) SARS-CoV-2 (PCR) Coronavirus NL63 (PCR) Human Metapneumovir PCR Influenza Type A (PCR) Influenza Type B (PCR) M. pneumoniae (PCR) Parainfluenza 1 (PCR) Parainfluenza 2 (PCR) Parainfluenza 3 (PCR) Parainfluenza 4 (PCR) RSV (PCR) Entero/Rhino (PCR) Diagnostic Findings Chest X-Ray 07/15/23 13:36 SINGLE VIEW CHEST CLINICAL HISTORY: Dyspnea FINDINGS: An AP, portable, upright chest radiograph is compared to study dated 08/20/2022. Correlation is made with chest CT dated 09/16/2015. The examination is degraded by portable technique, large body habitus, and apical lordotic positioning. The cardiomediastinal silhouette is unremarkable. There is bibasilar atelectasis. The lungs and pleural spaces are otherwise clear. No pneumothorax is seen. The skeletal structures are osteopenic. The bony thorax is grossly intact. IMPRESSION: No active disease in the chest. ACT 112: Negative or not required by law. Electronically signed by: Donavon Littlejohn M.D. 07/15/2023 2:28 PM Code Status & VTE Plan Code Status Full code-discussed with the patient and her 2 granddaughters at bedside Supervising Physician Co-Signing Physician Notes Pt seen in examined by wa, care coordinated w/ Eligio Anderson PA-C, pls refer to her note above for further detail. Pt is a 63 yo F paroxysmal A-fib, chronic diastolic CHF, chronic hypoxic respiratory failure, COPD, obstructive sleep apnea, morbid obesity, anemia, history of multiple strokes, prediabetes, hypothyroidism, depression who presents with acute worsening shortness of breath over the past 2 to 3 days. Pt typically uses 4 L O2 at baseline, and had to increase to 5 L in the past 2-3 days. At home her pulse ox is around 88-93%. Yesterday she was hypoxic with sats at 73%. Pt admits to having chills, no fever or sweats.Pt reports increased chest pressure for the past 2-3 days as well. She feels this is occurring while she is short of breath. Pt has been being told by her home health nurses to come to the hospital due to more rattling, wheezing and fluid in her lungs however the patient had been refusing. Pt has hx of UTI, incontinent at baseline, denies being able to feel dysuria, has darkened urine but no hematuria. Pt has increased edema of her legs, takes furosemide daily 80 mg daily and this has been recently increased. On exam, pt is morbidly obese, chronically ill appearing F in NAD, awake and alert and able to answer appropriately. Lung sounds - restric. air sounds, wheezing, minimal crackles. Heart sounds regular. Abdomen soft, obese, mildly tender in suprapubic region. 1+ LE edema b/l. Pt is able to move extremities. Skin is warm and dry. Pt received breathing treatment in the ED and she reports no much improvement. Pt likely presents with COPD exacerbation and mild acute on chronic HF. Will provide w/ IV lasix and will re-assess volume status tmrw. Will continue w/ nebs and solumedrol for copd exacerb. treatment. Will obtain UA to eval for poss. UTI. Cont. to closely monitor. MD [place]
[2023-07-15 16:41] LABS: Adenovirus PCR Not Detected (NotDetected); Bordetella parapertussis PCR Not Detected (NotDetected); Bordetella pertussis PCR Not Detected (NotDetected); Chlamydia pneumoniae PCR Not Detected (NotDetected); Coronavirus 229E PCR Not Detected (NotDetected); Coronavirus CoV-2 (COVID19)PCR Not Detected (NotDetected); Coronavirus HKU1 PCR Not Detected (NotDetected); Coronavirus NL63 PCR Not Detected (NotDetected); Coronavirus OC43PCR Not Detected (NotDetected); Human Metapneumovirus PCR Not Detected (NotDetected); Influenza A PCR Not Detected (NotDetected); Influenza B PCR Not Detected (NotDetected); Mycoplasma pneumoniae PCR Not Detected (NotDetected); Parainfluenza Virus 1 PCR Not Detected (NotDetected); Parainfluenza Virus 2 PCR Not Detected (NotDetected); Parainfluenza Virus 3 PCR Not Detected (NotDetected); Parainfluenza Virus 4 PCR Not Detected (NotDetected); Respiratory Syncytial VirusPCR Not Detected (NotDetected); Rhinovirus/Enterovirus PCR Not Detected (NotDetected)
[2023-07-15] MEDS ORDERED: FUROSEMIDE 40 MG/4 ML VIAL IV ONE (17:23)
[2023-07-15] MEDS ORDERED: ACETAMINOPHEN 325 MG TAB PO PRN (20:17)
[2023-07-15] MEDS ORDERED: ONDANSETRON INJ 2 MG/ML 2 ML VIAL IV PRN (20:17)
[2023-07-15] MEDS: ALBUT/IPRATROP 3MG/0.5MG NEB 3 ML VIAL NEB SCH ×2 (20:57→22:25)
[2023-07-15] MEDS ORDERED: ALBUT/IPRATROP 3MG/0.5MG NEB 3 ML VIAL NEB SCH (21:00)
[2023-07-15] MEDS: LORazepam 0.5 MG TAB PO PRN (21:11)
[2023-07-15] MEDS: traMADol HCL 50 MG TABLET PO PRN (21:11)
[2023-07-15] MEDS: guaiFENesin 600 MG TABCR PO SCH (21:12)
[2023-07-15] MEDS: DOXYCYCLINE HYCLATE 100 MG CAP PO SCH (21:12)
[2023-07-15] MEDS: busPIRone 5 MG TAB PO SCH (21:12)
[2023-07-15] MEDS: MIRTAZAPINE TAB 15 MG TAB PO SCH (21:13)
[2023-07-15] MEDS: methylPREDNISolone 40 MG in SYRINGE 0 ML IV SCH (21:13)
[2023-07-15] MEDS: PANTOprazole 40 MG TAB PO SCH (21:13)
[2023-07-15] MEDS: WARFARIN SOD 5 MG TAB PO SCH (21:13)
[2023-07-16 02:32] LABS: Appearance Urine Clear (Clear); Bilirubin Urine Negative (Negative); Blood Urine Negative (Negative); Color Urine Yellow; Glucose Urine UA Negative (Negative); Ketones Urine Negative (Negative); Leukocyte Esterase Urine Negative (Negative); Nitrite Urine Negative (Negative); Protein Urine Negative (Negative); Specific Gravity Urine 1.015 (1.000-1.030); Urobilinogen Urine Negative (Negative); pH Urine 6.5 (4.5-7.5)
[2023-07-16] MEDS: ALBUT/IPRATROP 3MG/0.5MG NEB 3 ML VIAL NEB SCH ×6 (02:36→22:41)
[2023-07-16] MEDS: LORazepam 0.5 MG TAB PO PRN ×2 (02:51→22:14)
[2023-07-16 03:51] LABS: Adenovirus F 40/41 PCR Not Detected (NotDetected); Astrovirus PCR Not Detected (NotDetected); Campylobacter PCR Not Detected (NotDetected); Cryptosporidium PCR Not Detected (NotDetected); Cyclospora cayetanensis PCR Not Detected (NotDetected); Entamoeba histolytica PCR Not Detected (NotDetected); Enteroaggregative E.coli(EAEC) Not Detected (NotDetected); Enteropathogenic E.coli (EPEC) Not Detected (NotDetected); Enterotoxigenic E.coli (ETEC) Not Detected (NotDetected); Giardia lamblia PCR Not Detected (NotDetected); Norovirus GI/GII PCR Not Detected (NotDetected); Plesiomonas shigelloides PCR Not Detected (NotDetected); Rotavirus A PCR Not Detected (NotDetected); Salmonella PCR Not Detected (NotDetected); Sapovirus PCR Not Detected (NotDetected); Shiga-like Toxin E.coli (STEC) Not Detected (NotDetected); Shigella/Enteroinvasive E.coli Not Detected (NotDetected); Vibrio cholerae PCR Not Detected (NotDetected); Vibrio species PCR Not Detected (NotDetected); Yersinia enterocolitica PCR Not Detected (NotDetected)
[2023-07-16 06:29] LABS: Hematocrit (blood only) 29.5 % (37.0-47.0); Hemoglobin 8.8 g/dl (12.0-16.0); Mean Corpuscular Hemoglobin 27.2 pg (25.0-34.0); Mean Corpuscular Hgb Conc 29.8 g/dL (32.0-36.0); Nucleated RBC # (auto) 0.04 K/uL (0.00-0.12); Nucleated RBC % (auto) 0.6 %; Platelet Count 419 K/uL (130-400); RDW Coefficient of Variation 19.9 % (11.5-14.5); RDW Standard Deviation 66.6 fL (36.4-46.3); Red Blood Count 3.24 M/uL (4.20-5.40); White Blood Count 7.21 K/ul (4.8-10.8)
[2023-07-16 06:33] LABS: Calcium 7.9 mg/dl (8.6-10.3); Creatinine Clr Calc Pharmacy 111.7 ml/min; Est GFR (African American) 103.3 ml/min; Est GFR (Non-African American) 89.1 ml/min; Potassium 3.9 mmol/L (3.5-5.1)
[2023-07-16 06:51] LABS: Prothrombin Time 20.6 Seconds (9.0-12.0)
[2023-07-16] MEDS: DOXYCYCLINE HYCLATE 100 MG CAP PO SCH ×2 (08:38→22:05)
[2023-07-16] MEDS: methylPREDNISolone 40 MG in SYRINGE 0 ML IV SCH ×2 (08:38→22:03)
[2023-07-16] MEDS: busPIRone 5 MG TAB PO SCH ×2 (08:38→22:04)
[2023-07-16] MEDS: guaiFENesin 600 MG TABCR PO SCH ×2 (08:38→22:04)
[2023-07-16] MEDS: OXYBUTYNIN CHLORIDE XL 5 MG TABCR PO SCH (08:39)
[2023-07-16] MEDS: METOPROLOL SUCC 25MG EXT REL TAB PO SCH (08:39)
[2023-07-16] MEDS: PANTOprazole 40 MG TAB PO SCH ×2 (08:39→22:03)
[2023-07-16] MEDS: FLUTICASONE/VILANTEROL 100/25MCG 14 PUFFS/INHALER INH SCH (08:40)
[2023-07-16] MEDS: ISOSORBIDE MONO EXTENDED REL 30 MG TABCR PO SCH (08:40)
[2023-07-16] MEDS: BACLOFEN 10 MG TAB PO PRN (08:48)
[2023-07-16] MEDS: traMADol HCL 50 MG TABLET PO PRN ×2 (08:48→21:59)
[2023-07-16] MEDS ORDERED: FUROSEMIDE 80 MG TAB PO SCH (09:00)
[2023-07-16] MEDS: BUDESONIDE 0.5 MG/2 ML VIAL (PULMICORT) NEB SCH ×2 (09:51→19:31)
[2023-07-16] MEDS: FORMOTEROL 20 MCG/2 ML VIAL NEB SCH ×2 (09:51→19:30)
[2023-07-16] MEDS ORDERED: GLUCOSE 40% GEL 15 GM TUBE PO PRN (13:30)
[2023-07-16] MEDS ORDERED: GLUCAGON FOR INJ 1 MG VIAL IM PRN (13:30)
[2023-07-16] MEDS ORDERED: DEXTROSE 50% 50 ML SYRINGE IV PRN (13:30)
[2023-07-16] MEDS ORDERED: GLUCOSE 10 TAB/TUBE PO PRN (13:30)
[2023-07-16] MEDS ORDERED: CARBOHYDRATES FOR HYPOGLYCEMIA PO PRN (13:30)
[2023-07-16] MEDS ORDERED: BUTT PASTE (ZINC OXIDE 16%) 171 APPLN/57 GM JAR EXT PRN (13:39)
[2023-07-16] MEDS: ACETAMINOPHEN W/CODEINE #3 1 TAB PO PRN (13:43)
[2023-07-16] MEDS ORDERED: FLUCONAZOLE 50 MG TAB PO ONE (14:00)
[2023-07-16] MEDS ORDERED: FUROSEMIDE 40 MG/4 ML VIAL IV ONE (14:00)
--- NOTE | 2023-07-16 14:39 | Hospitalist Progress Note ---
Date of Service July 16, 2023 Assessment & Plan (1) COPD with exacerbation: (2) Atrial fibrillation: (3) History of stroke: (4) COPD (chronic obstructive pulmonary disease): (5) Chronic respiratory failure with hypoxia: (6) Congestive heart failure: (7) Anemia: Plan: COPD Exacerbation Acute on Chronic Hypoxic and hypercarbic respiratory Failure Acute on chronic HFpEF Patient is a 63-year-old female with history of COPD on 4 L of oxygen presents to the ED with shortness of breath. Chest x-ray on admission personally reviewed no definite infiltrate seen. No leukocytosis ABG personally reviewed; consistent with chronic respiratory acidosis. Respiratory viral panel negative. Started the patient on DuoNeb [id number], IV Solu-Medrol Inhaled budesonide and formoterol. Continue on IV Lasix 40 mg IV twice daily Strict input and output monitoring. Wean oxygen as tolerated to keep saturation above 88%. Cutaneous candidiasis Cellulitis Significant redness in groin region. Also has tender nests/redness on left labia majora Started on miconazole nitrate. Will give 1 dose of fluconazole 150 mg Also started on ceftriaxone. Anemia -Hemoglobin of 9.3, hematocrit 33, no current need for transfusion, no overt bleeding, check guaiac as patient reports diarrhea and recently had supratherapeutic INR within the past week Anemia panel completed as an outpatient showing iron 17, TIBC 388, transferrin 4, B12 302, ferritin 9 - Indicative of iron deficiency anemia-patient reports that she has not picked this up [id number] and has been missing it for at least 2 weeks History of CVA, at least 9 strokes in the past - hx of PFO and hx of afib, on chronic anticoagulation with coumadin -Denies any focal weakness -PT/OT Sinus tachycardia Mild acute on Chronic diastolic CHF PFO Paroxysmal Afib - INR 2.1, trend with a.m. labs - Follows with Dr. Pacheco as outpatient, reports per last note tachycardia likely physiologic and related to her underlying lung disease, was started on metoprolol succinate 25 mg daily, continue isosorbide mononitrate, warfarin, furosemide, potassium Diarrhea - Reports this is increased recently, she had been on antibiotics in March for UTI as well as 2 weeks ago completed course of Bactrim -C. difficile stool culture negative. Urinary Incontinence - place purwick -Urinalysis not suggestive of infection. Moderate protein malnutrition -Albumin is decreased at 3.3 -Granddaughter reports that she drinks primarily Pepsi at home, minimal water intake - BMI of 59.7 Depression and anxiety - Continue home antihypertensives -Allow Ativan as tolerates this at home DVT PPx: Coumadin FEN/GI: Heart healthy diet Access/lines: 2 peripheral IVs CODE STATUS: Full code Dispo: Patient from home with daughter as caregiver from Wednesday to Wednesday. Time spent evaluating patient, direct bedside care, chart review, placing orders, interpretation of diagnostic studies, discussion with consultants, patient, and family members, as well as other required patient management activities is 60 minutes. Please note the above document was generated using voice recognition software. It may contain grammatical, syntax or spelling errors. Any formal questions or concerns about the content, text or information contained within the body of this dictation should be directly addressed to the provider for clarification Admission and Anticipated Discharge Date Admission Date: July 15, 2023 Subjective Patient seen in the morning and in afternoon. In the morning, patient was working with PT and was have difficulty with shortness of breath. In the afternoon, patient reported improvement in shortness of breath slightly. Review of Systems Review of Systems: All systems reviewed & are unremarkable except as noted in Subjective Physical Exam Physical Exam: Constitutional: Alert oriented x3; appears to be in mild distress. Morbidly obese. Respiratory: Bilateral diffuse wheeze heard. Cardiovascular: RRR, no murmur, no edema Vessels: no JVD or carotid bruit Chest: normal inspection of chest Abdomen: normal bowel sounds, soft, nontender, no hepatosplenomegaly Pelvic: Appears to have redness in groin area. Also tenderness and redness on left labia majora Musculoskeletal: no cyanosis or clubbing, extremities motor strength 5/5 Skin: no rashes, warm and dry normal turgor Neurologic: PERRL, EOMI, accommodation nl, no face palsy, no dysarthria CN's II- XI intact bilaterally and moves all extremities Psychiatric: A+Ox3, euthymic affect Results & Data Results & Data Vital Signs (Past 12 Hours) Vital Signs Temp Pulse Pulse Resp BP Pulse Ox O2 Del Method 07/16/23 12:30 86 94 Nasal Cannula 07/16/23 11:35 36.6 C 91 H 18 100/67 92 Nasal Cannula 07/16/23 08:00 63 07/16/23 08:00 Nasal Cannula 07/16/23 09:54 94 H 20 92 Nasal Cannula 07/16/23 07:59 95 H 20 95 Nasal Cannula 07/16/23 07:49 36.7 C 95 H 18 125/72 92 Nasal Cannula 07/16/23 03:00 36.6 C 90 20 111/69 90 Nasal Cannula O2 Flow Rate 07/16/23 12:30 07/16/23 11:35 07/16/23 08:00 07/16/23 08:00 6 07/16/23 09:54 5 07/16/23 07:59 5 07/16/23 07:49 5 07/16/23 03:00 6 Laboratory Results Laboratory Results WBC 7.21 K/ul (4.8-10.8) 07/16/23 05:48 RBC 3.24 M/uL (4.20-5.40) L 07/16/23 05:48 Hgb 8.8 g/dl (12.0-16.0) L 07/16/23 05:48 Hct 29.5 % (37.0-47.0) L 07/16/23 05:48 MCV 91.0 fL (80.0-100.0) 07/16/23 05:48 MCH 27.2 pg (25.0-34.0) 07/16/23 05:48 MCHC 29.8 g/dL (32.0-36.0) L 07/16/23 05:48 RDW Std Deviation 66.6 fL (36.4-46.3) H 07/16/23 05:48 RDW Coeff of Ursula 19.9 % (11.5-14.5) H 07/16/23 05:48 Plt Count 419 K/uL (130-400) H 07/16/23 05:48 MPV 9.0 fL (9.4-12.4) L 07/16/23 05:48 Immature Gran % (Auto) 0.8 % 07/15/23 13:45 Neut % (Auto) 68.6 % 07/15/23 13:45 Lymph % (Auto) 21.4 % 07/15/23 13:45 Andrews % (Auto) 7.6 % 07/15/23 13:45 Eos % (Auto) 1.2 % 07/15/23 13:45 Baso % (Auto) 0.4 % 07/15/23 13:45 Neut # (Auto) 5.07 K/uL (1.40-6.50) 07/15/23 13:45 Lymph # (Auto) 1.58 K/uL (1.20-3.40) 07/15/23 13:45 Andrews # (Auto) 0.56 K/uL (0.11-0.59) 07/15/23 13:45 Eos # (Auto) 0.09 K/uL (0.00-0.50) 07/15/23 13:45 Baso # (Auto) 0.03 K/uL (0.00-0.20) 07/15/23 13:45 Immature Gran # (Auto) 0.06 K/uL (0.01-0.20) 07/15/23 13:45 Absolute Nucleated RBC 0.04 K/uL (0.00-0.12) 07/16/23 05:48 Nucleated RBC % (auto) 0.6 % 07/16/23 05:48 Polychromasia 1+ 07/15/23 13:45 Anisocytosis Present 07/15/23 13:45 Stomatocytes 1+ 07/15/23 13:45 PT 20.6 Seconds (9.0-12.0) H 07/16/23 05:48 INR 2.0 (0.9-1.1) H 07/16/23 05:48 D-Dimer < 190 ug/L FEU (0-500) 07/15/23 13:45 VBG pH 7.33 (7.36-7.41) L 07/15/23 13:45 VBG pCO2 73 mmHg (38-50) H 07/15/23 13:45 VBG pO2 26 mmHg 07/15/23 13:45 VBG HCO3 39 mmol/L 07/15/23 13:45 VBG O2 Saturation < 60.0 % 07/15/23 13:45 VBG Base Excess 9.6 mEq/L 07/15/23 13:45 Sodium 139 mmol/L (136-145) 07/16/23 05:48 Potassium 3.9 mmol/L (3.5-5.1) 07/16/23 05:48 Chloride 98 mmol/L (98-107) 07/16/23 05:48 Carbon Dioxide 36 mmol/L (21-32) H 07/16/23 05:48 Anion Gap 5 (3-11) 07/16/23 05:48 BUN 18 mg/dl (6-23) 07/16/23 05:48 Creatinine 0.72 mg/dl (0.6-1.2) 07/16/23 05:48 Est Cr Clr Drug Dosing 111.7 ml/min 07/16/23 05:48 Est GFR ( Amer) 103.3 ml/min 07/16/23 05:48 Est GFR (Non-Af Amer) 89.1 ml/min 07/16/23 05:48 BUN/Creatinine Ratio 25.0 (10-20) H 07/16/23 05:48 Glucose 242 mg/dl (70-99(Fasting)) H 07/16/23 05:48 Calcium 7.9 mg/dl (8.6-10.3) L 07/16/23 05:48 Total Bilirubin 0.1 mg/dl (0.2-1.0) L 07/15/23 15:09 AST 12 U/L (13-39) L 07/15/23 15:09 ALT 9 U/L (7-52) 07/15/23 15:09 Alkaline Phosphatase 82 U/L (34-104) 07/15/23 15:09 Troponin I High Sens 4.8 pg/ml (0-14) 07/15/23 21:04 B-Natriuretic Peptide 204 pg/ml (0-100) H 07/15/23 15:09 Total Protein 6.2 gm/dl (6.0-8.3) 07/15/23 15:09 Albumin 3.3 gm/dl (3.4-5.0) L 07/15/23 15:09 Globulin 2.9 gm/dl (2.5-4.0) 07/15/23 15:09 Albumin/Globulin Ratio 1.1 (0.9-2) 07/15/23 15:09 Urine Color Yellow 07/16/23 02:18 Urine Appearance Clear (Clear) 07/16/23 02:18 Urine pH 6.5 (4.5-7.5) 07/16/23 02:18 Ur Specific Eagle 1.015 (1.000-1.030) 07/16/23 02:18 Urine Protein Negative (Negative) 07/16/23 02:18 Urine Glucose (UA) Negative (Negative) 07/16/23 02:18 Urine Ketones Negative (Negative) 07/16/23 02:18 Urine Blood Negative (Negative) 07/16/23 02:18 Urine Nitrite Negative (Negative) 07/16/23 02:18 Urine Bilirubin Negative (Negative) 07/16/23 02:18 Urine Urobilinogen Negative (Negative) 07/16/23 02:18 Ur Leukocyte Esterase Negative (Negative) 07/16/23 02:18 Stl C. cayetanensis PCR Not Detected (NotDetected) 07/16/23 02:18 Stool Rotavirus A PCR Not Detected (NotDetected) 07/16/23 02:18 Stl Adenov F 40/41 PCR Not Detected (NotDetected) 07/16/23 02:18 Stool Astrovirus (PCR) Not Detected (NotDetected) 07/16/23 02:18 Stool Campylobacter PCR Not Detected (NotDetected) 07/16/23 02:18 Stl C. diff Tox B Gene Negative Cdiff Gene (Neg) 07/16/23 02:18 Stool Cryptosporidium PCR Not Detected (NotDetected) 07/16/23 02:18 Stl E.coli Shiga Tox PCR Not Detected (NotDetected) 07/16/23 02:18 Stl Enterotoxigenic E PCR Not Detected (NotDetected) 07/16/23 02:18 Stool EPEC (PCR) Not Detected (NotDetected) 07/16/23 02:18 Stool EAEC (PCR) Not Detected (NotDetected) 07/16/23 02:18 Stl E. histolytica PCR Not Detected (NotDetected) 07/16/23 02:18 Stool Giardia Lamblia PCR Not Detected (NotDetected) 07/16/23 02:18 Stool Salmonella PCR Not Detected (NotDetected) 07/16/23 02:18 Stool Sapovirus (PCR) Not Detected (NotDetected) 07/16/23 02:18 Stl P. shigelloides PCR Not Detected (NotDetected) 07/16/23 02:18 Stl Shigella/EIEC PCR Not Detected (NotDetected) 07/16/23 02:18 St Y.enterocolitica PCR Not Detected (NotDetected) 07/16/23 02:18 Stool Vibrio (PCR) Not Detected (NotDetected) 07/16/23 02:18 Stl Vibrio cholerae PCR Not Detected (NotDetected) 07/16/23 02:18 Stl Norovirus GI/GII PCR Not Detected (NotDetected) 07/16/23 02:18 Adenovirus (PCR) Not Detected (NotDetected) 07/15/23 Unknown B. pertussis DNA (PCR) Not Detected (NotDetected) 07/15/23 Unknown B.parapertussis DNA PCR Not Detected (NotDetected) 07/15/23 Unknown C. pneumoniae DNA (PCR) Not Detected (NotDetected) 07/15/23 Unknown Coronavirus OC43 (PCR) Not Detected (NotDetected) 07/15/23 Unknown Coronavirus HKU1 (PCR) Not Detected (NotDetected) 07/15/23 Unknown Coronavirus 229E (PCR) Not Detected (NotDetected) 07/15/23 Unknown SARS-CoV-2 (PCR) Not Detected (NotDetected) 07/15/23 Unknown Coronavirus NL63 (PCR) Not Detected (NotDetected) 07/15/23 Unknown Human Metapneumovir PCR Not Detected (NotDetected) 07/15/23 Unknown Influenza Type A (PCR) Not Detected (NotDetected) 07/15/23 Unknown Influenza Type B (PCR) Not Detected (NotDetected) 07/15/23 Unknown M. pneumoniae (PCR) Not Detected (NotDetected) 07/15/23 Unknown Parainfluenza 1 (PCR) Not Detected (NotDetected) 07/15/23 Unknown Parainfluenza 2 (PCR) Not Detected (NotDetected) 07/15/23 Unknown Parainfluenza 3 (PCR) Not Detected (NotDetected) 07/15/23 Unknown Parainfluenza 4 (PCR) Not Detected (NotDetected) 07/15/23 Unknown RSV (PCR) Not Detected (NotDetected) 07/15/23 Unknown Entero/Rhino (PCR) Not Detected (NotDetected) 07/15/23 Unknown Impressions Chest X-Ray 07/15/23 13:36 SINGLE VIEW CHEST CLINICAL HISTORY: Dyspnea FINDINGS: An AP, portable, upright chest radiograph is compared to study dated 08/20/2022. Correlation is made with chest CT dated 09/16/2015. The examination is degraded by portable technique, large body habitus, and apical lordotic positioning. The cardiomediastinal silhouette is unremarkable. There is bibasilar atelectasis. The lungs and pleural spaces are otherwise clear. No pneumothorax is seen. The skeletal structures are osteopenic. The bony thorax is grossly intact. IMPRESSION: No active disease in the chest. ACT 112: Negative or not required by law. Electronically signed by: Donavon Littlejohn M.D. 07/15/2023 2:28 PM
[2023-07-16] MEDS: cefTRIAXone SODIUM 2,000 MG in DEXTROSE 5% 50 ML IV SCH (14:47)
[2023-07-16] MEDS: WARFARIN SOD 2.5 MG TAB PO SCH (14:49)
[2023-07-16] MEDS: INSULIN ASPART PER UNIT CHARGE SC SCH ×2 (17:53→22:14)
--- NOTE | 2023-07-16 18:25 | Pulmonary Consultation ---
Date of Consultation July 16, 2023 Assessment & Plan (1) Congestive heart failure: (2) Atrial fibrillation: (3) Cerebrovascular disease: (4) PAF (paroxysmal atrial fibrillation): (5) Anxiety and depression: (6) COPD (chronic obstructive pulmonary disease): (7) Anticoagulated on Coumadin: Plan ASSESSMENT/PLAN: 1. Acute Respiratory Failure with Hypoxia -COPD Exacerbation -Acute Bronchitis vs HF? -steroids -inhalers: Advair/Spiriva or alternative -sputum culture -mucinex -flutter valve -procalcitonin -supplemental oxygen 2. Chest Pain -ECG -troponins -ECHO 3. Paroxsymal Atrial Fibrillation -continue coumadin -serial ECG'S -low dose beta-rosio 4. Dementia -continue home medications 5. Stroke Hx -continue Coumadin -PT/OT 6. Depression/Anxiety -Continue her home medications Total pulmonary time spent examining and speaking the patient, reviewing all of her diagnostic studies and developing a pulmonary management plan exclusive any invasive procedures or family conferences today was 46 minutes today. History of Present Illness Reason for Consultation: COPD exacerbation Requesting Physician: Scott Blood MD Attending Physician: Scott Blood MD History of Present Illness History of present illness taken from patient and also history and physical from hospitalist note due to patient's poor history due to dementia, Ms. Kendall is a 63-year-old woman with a history of COPD who has been seen at the [facility] and treated for COPD admits to being progressively short of breath for the past several days. She normally wears oxygen at home at 4 L nasal cannula and states that she has been on oxygen for multiple years at least greater than 5. Patient does have home nurses and care givers from [facility] where the nurses come twice a week. She states she has been having difficulty taking deep breaths and has also been experiencing some chest pain in which the pain does radiate to her left arm and jaw bilaterally. Her home care personnel has encouraged her to come to the hospital due to more coarse breath sounds and wheezing in her chest. While in the ED patient's oxygen saturation was noted to be 73% where her normal oxygen saturation runs from approximately 88 to 93%. She denies any fever and chills at this time or any exposure to anyone else who has been ill the past several days to weeks. Allergies Allergy/AdvReac Type Severity Reaction Status Date / Time aspirin Allergy Unknown TAKES Verified 07/15/23 16:00 COUMADIN salicylates AdvReac Unknown ?DUE TO Verified 07/15/23 16:00 COUMADIN? Home Medications Medication Instructions Recorded Confirmed Type albuterol sulfate 5 mg/mL(0.5 %) 2.5 mg inhalation DIRECTED PRN 08/20/22 07/15/23 History solution for nebulization Shortness Of Breath Or Wheezing albuterol sulfate 90 mcg/actuation 2 puff inhalation QID PRN sob 08/20/22 07/15/23 History aerosol inhaler baclofen 10 mg tablet 10 mg PO TID PRN Muscle Pain 08/20/22 07/15/23 History buspirone 10 mg tablet 20 mg PO AMHS 08/20/22 07/15/23 History cholecalciferol (vitamin D3) 25 25 mcg PO QAM 08/20/22 07/15/23 History mcg (1,000 unit) capsule (Vitamin D3) furosemide 20 mg tablet (Lasix) 20 mg PO DAILY PRN .SWELLING IN 08/20/2206/17 History LOWER LEGS isosorbide mononitrate 30 mg 30 mg PO QAM 08/20/22 07/15/23 History tablet,extended release 24 hr lorazepam 0.5 mg tablet 0.5 mg PO Q8 PRN Anxiety 08/20/22 07/15/23 History mirtazapine 30 mg tablet 30 mg PO HS 08/20/22 07/15/23 History tramadol 100 mg tablet 100 mg PO Q8 PRN .MOD-SEVERE PAIN 08/20/22 07/15/23 History warfarin 5 mg tablet 2.5 mg PO MOWEFR@1600 08/20/22 07/15/23 History ferrous sulfate 325 mg (65 mg 325 mg PO QAM 01/12/23 07/15/23 History iron) tablet acetaminophen 300 mg-codeine 30 mg 1 tab PO Q6 PRN Moderate Pain 07/15/23 History tablet (Scale Score 5-6) fluticasone propionate 115 2 puff inhalation AMHS 07/15/23 07/15/23 History mcg-salmeterol 21 mcg/actuation HFA inhaler (Advair HFA) metoprolol succinate 25 mg 25 mg PO QAM 07/15/23 07/15/23 History tablet,extended release 24 hr omeprazole 20 mg capsule,delayed 20 mg PO AMHS 07/15/23 07/15/23 History release potassium chloride 10 mEq 10 meq PO AMHS 07/15/23 07/15/23 History capsule,extended release solifenacin 10 mg tablet 10 mg PO QAM 07/15/23 07/15/23 History warfarin 5 mg tablet 5 mg PO SUTUTHSA 07/15/23 07/15/23 History Patient History Medical History (Updated 07/15/23 @ 20:18 by Ej Fuentes DO) Anemia Anticoagulated on Coumadin Anxiety and depression Chronic pain on daily narcotics (tramadol PRN) Chronic respiratory failure with hypoxia Congestive heart failure follows with [facility] cardiology (Patricia banks) COPD (chronic obstructive pulmonary disease) Degenerative disc disease Dementia "very early stages" Alert and oriented x3. granddaughter is the caregiver of patient. Diarrhea started about 1 year ago -- will come and go. History of COVID-19 Spring 2020. treated at [facility] inpatient. symptoms included: sob, cough, desaturation 84-87%, congestion, headache, fatigue. no ventilator at the time. no current problems. History of stroke "embolic stroke, underlying PFO" total of 9 strokes -> last stroke ~6+years ago. damaged urinary nerve and mild left sided weakness. Hypertension Morbid obesity On home oxygen therapy continuous 3lpm via n/c. (will increase to 4lpm via n/c if needed) Osteoarthritis Paroxysmal A-fib feels her heart race at times. Peripheral neuropathy Post traumatic stress disorder Sleep apnea mild RUFINA (dx in ) no machine currently -- pt to have another sleep study february 2023. Submucosal lesion of stomach Noted on EGD 11/06/20 Urinary incontinence Surgical History (Updated 01/12/23 @ 09:09 by Aria Alva RN) H/O colonoscopy H/O esophagogastroduodenoscopy History of cardiac cath [facility] - "long time ago" -- pt unsure of details. History of cataract surgery bilateral Hx of lumpectomy left breast (benign) Status post cholecystectomy Status post hernia repair Right inguinal Status post hysterectomy MERT with BSO Family History (Updated 01/12/23 @ 09:11 by Aria Alva RN) Grandmother (Maternal) FHx: bladder cancer Father FHx: stroke Other Heart disease No family history of adverse response to anesthesia Social History Smoking Status: Former smoker Tobacco Type: Cigarettes Second Hand Exposure: No; Do You Dip or Chew Tobacco: No; Hx Alcohol Use: No Hx Substance Use: No Preferred Language: Chinese Communication Ability: Effective Shirt Turner Required: No Beliefs That Will Affect Care: None marital status: / Current Living Situation: Alone Current Living Situation Comment: Granddaughter is the caregiver. Comes M-F 8am-4pm. Other Information That Helps Us Care for You: No Feels Safe at Home: Yes Safety Concerns: Feels Safe At This Time Assistive Devices: Hospital Bed, Nebulizer, Oxygen - Continuous, S cooter/Electric Scooter, Walker and Wheelchair Review of Systems Review of Systems: All systems reviewed & are unremarkable except as noted in HPI & below Respiratory: Increasing dyspnea with wheezing. Normally uses 4 L/min of oxygen at home. Cardiovascular: Additional Comments: Experiencing more chest pain with radiation to her arm and chest. Physical Exam Constitutional: Patient appears somewhat confused but states this is due to her dementia does not appear to be in any acute cardiac or respiratory distress at this time and is not complaining of any chest pain. Eyes: PERRL, conjunctivae normal, anicteric sclerae ENMT: external ear and nose normal, oropharynx normal Neck: trachea midline, no thyromegaly Respiratory: Scattered wheezing with both inspiratory and expiratory phases of respiration. Poor inspiratory and expiratory effort with poor airflow particular to the bases but this may also be due to her massive body habitus. No coughing. Cardiovascular: RRR, no murmur, no edema S1-S2 within normal limits. There is no rubs gallops or clicks. Gastrointestinal (Abdomen): normal bowel sounds, soft, nontender, no hepatosplenomegaly Obese. Musculoskeletal: no cyanosis or clubbing, extremities motor strength 5/5 Skin: no rashes, warm and dry Neurologic: patellar DTR's 2+ bilat, sensation intact and PERRL, EOMI, accommodation nl, no face palsy, no dysarthria Psychiatric: Patient is somewhat anxious at times, unable to recall any accurate history at this time which led to her admission, explains to me that she does have dementia. Results & Data Results & Data Vital Signs (Past 12 Hours) Vital Signs Temp Pulse Pulse Resp BP Pulse Ox O2 Del Method 07/16/23 16:12 92 Nasal Cannula 07/16/23 16:00 88 07/16/23 14:59 88 18 90 Nasal Cannula 07/16/23 14:44 36.9 C 86 18 98/60 L 92 Nasal Cannula 07/16/23 12:30 86 94 Nasal Cannula 07/16/23 11:35 36.6 C 91 H 18 100/67 92 Nasal Cannula 07/16/23 08:00 63 07/16/23 08:00 Nasal Cannula 07/16/23 09:54 94 H 20 92 Nasal Cannula 07/16/23 07:59 95 H 20 95 Nasal Cannula 07/16/23 07:49 36.7 C 95 H 18 125/72 92 Nasal Cannula O2 Flow Rate 07/16/23 16:12 07/16/23 16:00 07/16/23 14:59 5 07/16/23 14:44 5 07/16/23 12:30 07/16/23 11:35 07/16/23 08:00 07/16/23 08:00 6 07/16/23 09:54 5 07/16/23 07:59 5 07/16/23 07:49 5 Laboratory Results Laboratory Results WBC 7.21 K/ul (4.8-10.8) 07/16/23 05:48 RBC 3.24 M/uL (4.20-5.40) L 07/16/23 05:48 Hgb 8.8 g/dl (12.0-16.0) L 07/16/23 05:48 Hct 29.5 % (37.0-47.0) L 07/16/23 05:48 MCV 91.0 fL (80.0-100.0) 07/16/23 05:48 MCH 27.2 pg (25.0-34.0) 07/16/23 05:48 MCHC 29.8 g/dL (32.0-36.0) L 07/16/23 05:48 RDW Std Deviation 66.6 fL (36.4-46.3) H 07/16/23 05:48 RDW Coeff of Ursula 19.9 % (11.5-14.5) H 07/16/23 05:48 Plt Count 419 K/uL (130-400) H 07/16/23 05:48 MPV 9.0 fL (9.4-12.4) L 07/16/23 05:48 Immature Gran % (Auto) 0.8 % 07/15/23 13:45 Neut % (Auto) 68.6 % 07/15/23 13:45 Lymph % (Auto) 21.4 % 07/15/23 13:45 [place] % (Auto) 7.6 % 07/15/23 13:45 Eos % (Auto) 1.2 % 07/15/23 13:45 Baso % (Auto) 0.4 % 07/15/23 13:45 Neut # (Auto) 5.07 K/uL (1.40-6.50) 07/15/23 13:45 Lymph # (Auto) 1.58 K/uL (1.20-3.40) 07/15/23 13:45 Apache # (Auto) 0.56 K/uL (0.11-0.59) 07/15/23 13:45 Eos # (Auto) 0.09 K/uL (0.00-0.50) 07/15/23 13:45 Baso # (Auto) 0.03 K/uL (0.00-0.20) 07/15/23 13:45 Immature Gran # (Auto) 0.06 K/uL (0.01-0.20) 07/15/23 13:45 Absolute Nucleated RBC 0.04 K/uL (0.00-0.12) 07/16/23 05:48 Nucleated RBC % (auto) 0.6 % 07/16/23 05:48 Polychromasia 1+ 07/15/23 13:45 Anisocytosis Present 07/15/23 13:45 Stomatocytes 1+ 07/15/23 13:45 PT 20.6 Seconds (9.0-12.0) H 07/16/23 05:48 INR 2.0 (0.9-1.1) H 07/16/23 05:48 D-Dimer < 190 ug/L FEU (0-500) 07/15/23 13:45 VBG pH 7.33 (7.36-7.41) L 07/15/23 13:45 VBG pCO2 73 mmHg (38-50) H 07/15/23 13:45 VBG pO2 26 mmHg 07/15/23 13:45 VBG HCO3 39 mmol/L 07/15/23 13:45 VBG O2 Saturation < 60.0 % 07/15/23 13:45 VBG Base Excess 9.6 mEq/L 07/15/23 13:45 Sodium 139 mmol/L (136-145) 07/16/23 05:48 Potassium 3.9 mmol/L (3.5-5.1) 07/16/23 05:48 Chloride 98 mmol/L (98-107) 07/16/23 05:48 Carbon Dioxide 36 mmol/L (21-32) H 07/16/23 05:48 Anion Gap 5 (3-11) 07/16/23 05:48 BUN 18 mg/dl (6-23) 07/16/23 05:48 Creatinine 0.72 mg/dl (0.6-1.2) 07/16/23 05:48 Est Cr Clr Drug Dosing 111.7 ml/min 07/16/23 05:48 Est GFR ( Amer) 103.3 ml/min 07/16/23 05:48 Est GFR (Non-Af Amer) 89.1 ml/min 07/16/23 05:48 BUN/Creatinine Ratio 25.0 (10-20) H 07/16/23 05:48 Glucose 242 mg/dl (70-99(Fasting)) H 07/16/23 05:48 POC Glucose 196 mg/dl (70-99) H 07/16/23 15:42 Calcium 7.9 mg/dl (8.6-10.3) L 07/16/23 05:48 Total Bilirubin 0.1 mg/dl (0.2-1.0) L 07/15/23 15:09 AST 12 U/L (13-39) L 07/15/23 15:09 ALT 9 U/L (7-52) 07/15/23 15:09 Alkaline Phosphatase 82 U/L (34-104) 07/15/23 15:09 Troponin I High Sens 4.8 pg/ml (0-14) 07/15/23 21:04 B-Natriuretic Peptide 204 pg/ml (0-100) H 07/15/23 15:09 Total Protein 6.2 gm/dl (6.0-8.3) 07/15/23 15:09 Albumin 3.3 gm/dl (3.4-5.0) L 07/15/23 15:09 Globulin 2.9 gm/dl (2.5-4.0) 07/15/23 15:09 Albumin/Globulin Ratio 1.1 (0.9-2) 07/15/23 15:09 Urine Color Yellow 07/16/23 02:18 Urine Appearance Clear (Clear) 07/16/23 02:18 Urine pH 6.5 (4.5-7.5) 07/16/23 02:18 Ur Specific Enterprise 1.015 (1.000-1.030) 07/16/23 02:18 Urine Protein Negative (Negative) 07/16/23 02:18 Urine Glucose (UA) Negative (Negative) 07/16/23 02:18 Urine Ketones Negative (Negative) 07/16/23 02:18 Urine Blood Negative (Negative) 07/16/23 02:18 Urine Nitrite Negative (Negative) 07/16/23 02:18 Urine Bilirubin Negative (Negative) 07/16/23 02:18 Urine Urobilinogen Negative (Negative) 07/16/23 02:18 Ur Leukocyte Esterase Negative (Negative) 07/16/23 02:18 Stl C. cayetanensis PCR Not Detected (NotDetected) 07/16/23 02:18 Stool Rotavirus A PCR Not Detected (NotDetected) 07/16/23 02:18 Stl Adenov F 40/41 PCR Not Detected (NotDetected) 07/16/23 02:18 Stool Astrovirus (PCR) Not Detected (NotDetected) 07/16/23 02:18 Stool Campylobacter PCR Not Detected (NotDetected) 07/16/23 02:18 Stl C. diff Tox B Gene Negative Cdiff Gene (Neg) 07/16/23 02:18 Stool Cryptosporidium PCR Not Detected (NotDetected) 07/16/23 02:18 Stl E.coli Shiga Tox PCR Not Detected (NotDetected) 07/16/23 02:18 Stl Enterotoxigenic E PCR Not Detected (NotDetected) 07/16/23 02:18 Stool EPEC (PCR) Not Detected (NotDetected) 07/16/23 02:18 Stool EAEC (PCR) Not Detected (NotDetected) 07/16/23 02:18 Stl E. histolytica PCR Not Detected (NotDetected) 07/16/23 02:18 Stool Giardia Lamblia PCR Not Detected (NotDetected) 07/16/23 02:18 Stool Salmonella PCR Not Detected (NotDetected) 07/16/23 02:18 Stool Sapovirus (PCR) Not Detected (NotDetected) 07/16/23 02:18 Stl P. shigelloides PCR Not Detected (NotDetected) 07/16/23 02:18 Stl Shigella/EIEC PCR Not Detected (NotDetected) 07/16/23 02:18 St Y.enterocolitica PCR Not Detected (NotDetected) 07/16/23 02:18 Stool Vibrio (PCR) Not Detected (NotDetected) 07/16/23 02:18 Stl Vibrio cholerae PCR Not Detected (NotDetected) 07/16/23 02:18 Stl Norovirus GI/GII PCR Not Detected (NotDetected) 07/16/23 02:18 Adenovirus (PCR) Not Detected (NotDetected) 07/15/23 Unknown B. pertussis DNA (PCR) Not Detected (NotDetected) 07/15/23 Unknown B.parapertussis DNA PCR Not Detected (NotDetected) 07/15/23 Unknown C. pneumoniae DNA (PCR) Not Detected (NotDetected) 07/15/23 Unknown Coronavirus OC43 (PCR) Not Detected (NotDetected) 07/15/23 Unknown Coronavirus HKU1 (PCR) Not Detected (NotDetected) 07/15/23 Unknown Coronavirus 229E (PCR) Not Detected (NotDetected) 07/15/23 Unknown SARS-CoV-2 (PCR) Not Detected (NotDetected) 07/15/23 Unknown Coronavirus NL63 (PCR) Not Detected (NotDetected) 07/15/23 Unknown Human Metapneumovir PCR Not Detected (NotDetected) 07/15/23 Unknown Influenza Type A (PCR) Not Detected (NotDetected) 07/15/23 Unknown Influenza Type B (PCR) Not Detected (NotDetected) 07/15/23 Unknown M. pneumoniae (PCR) Not Detected (NotDetected) 07/15/23 Unknown Parainfluenza 1 (PCR) Not Detected (NotDetected) 07/15/23 Unknown Parainfluenza 2 (PCR) Not Detected (NotDetected) 07/15/23 Unknown Parainfluenza 3 (PCR) Not Detected (NotDetected) 07/15/23 Unknown Parainfluenza 4 (PCR) Not Detected (NotDetected) 07/15/23 Unknown RSV (PCR) Not Detected (NotDetected) 07/15/23 Unknown Entero/Rhino (PCR) Not Detected (NotDetected) 07/15/23 Unknown Impressions Chest X-Ray 07/15/23 13:36 SINGLE VIEW CHEST CLINICAL HISTORY: Dyspnea FINDINGS: An AP, portable, upright chest radiograph is compared to study dated 08/20/2022. Correlation is made with chest CT dated 09/16/2015. The examination is degraded by portable technique, large body habitus, and apical lordotic positioning. The cardiomediastinal silhouette is unremarkable. There is bibasilar atelectasis. The lungs and pleural spaces are otherwise clear. No pneumothorax is seen. The skeletal structures are osteopenic. The bony thorax is grossly intact. IMPRESSION: No active disease in the chest. ACT 112: Negative or not required by law. Electronically signed by: Donavon Littlejohn M.D. 07/15/2023 2:28 PM Medications Administered Home Medications Medication Instructions Recorded Confirmed Last Taken albuterol sulfate 5 mg/mL(0.5 %) 2.5 mg inhalation DIRECTED PRN 08/20/22 07/15/23 Unknown solution for nebulization Shortness Of Breath Or Wheezing albuterol sulfate 90 mcg/actuation 2 puff inhalation QID PRN sob 08/20/22 07/15/23 01/13/23 06:00 aerosol inhaler baclofen 10 mg tablet 10 mg PO TID PRN Muscle Pain 08/20/22 07/15/23 01/12/23 buspirone 10 mg tablet 20 mg PO AMHS 08/20/22 07/15/23 01/13/23 06:00 cholecalciferol (vitamin D3) 25 25 mcg PO QAM 08/20/22 07/15/23 01/12/23 mcg (1,000 unit) capsule (Vitamin D3) furosemide 20 mg tablet (Lasix) 20 mg PO DAILY PRN .SWELLING IN 08/20/22 07/15/23 01/12/23 LOWER LEGS isosorbide mononitrate 30 mg 30 mg PO QAM 08/20/22 07/15/23 01/13/23 06:00 tablet,extended release 24 hr lorazepam 0.5 mg tablet 0.5 mg PO Q8 PRN Anxiety 08/20/22 07/15/23 01/12/23 mirtazapine 30 mg tablet 30 mg PO HS 08/20/22 07/15/23 01/12/23 tramadol 100 mg tablet 100 mg PO Q8 PRN .MOD-SEVERE PAIN 08/20/22 07/15/23 01/12/23 warfarin 5 mg tablet 2.5 mg PO MOWEFR@1600 08/20/22 07/15/23 01/07/23 ferrous sulfate 325 mg (65 mg 325 mg PO QA 01/12/23 07/15/23 01/12/23 iron) tablet acetaminophen 300 mg-codeine 30 mg 1 tab PO Q6 PRN Moderate Pain 07/15/23 07/15/23 Unknown tablet (Scale Score 5-6) fluticasone propionate 115 2 puff inhalation [facility] 07/15/23 07/15/23 Unknown mcg-salmeterol 21 mcg/actuation HFA inhaler (Advair HFA) metoprolol succinate 25 mg 25 mg PO QA 07/15/23 07/15/23 Unknown tablet,extended release 24 hr omeprazole 20 mg capsule,delayed 20 mg PO [facility] 07/15/23 07/15/23 Unknown release potassium chloride 10 mEq 10 meq PO [facility] 07/15/23 07/15/23 Unknown capsule,extended release solifenacin 10 mg tablet 10 mg PO QA 07/15/23 07/15/23 Unknown warfarin 5 mg tablet 5 mg PO SUTUTHSA 07/15/23 07/15/23 Unknown Active Medications Generic Name Dose Route Start Last Admin Trade Name Freq PRN Reason Stop Dose Admin Acetaminophen/Codeine Phosphate 1 tab 07/15/23 20:17 07/16/23 13:43 Acetaminophen W/Codeine #3 1 Tab PO 08/14/23 20:16 1 tab Q6H PRN Administration Moderate Pain (Scale Score 5-6) Albuterol 3 ml 07/15/23 19:00 07/16/23 14:58 Albut/Ipratrop 3mg/0.5mg Neb 3 Ml Vial NEB 08/14/23 18:59 3 ml Q4R MARY Administration Protocol Baclofen 10 mg 07/15/23 20:17 07/16/23 08:48 Baclofen 10 Mg Tab PO 08/14/23 20:16 10 mg TID PRN Administration Muscle Pain/spasm Budesonide 0.5 mg 07/16/23 08:20 07/16/23 09:51 Budesonide 0.5 Mg/2 Ml Vial (Pulmicort) NEB 08/15/23 08:19 0.5 mg BIDR MARY Administration Buspirone HCl 20 mg 07/15/23 21:00 07/16/23 08:38 Buspirone 5 Mg Tab PO 08/14/23 20:59 20 mg AMHS MARY Administration Doxycycline Hyclate 100 mg 07/15/23 21:00 07/16/23 08:38 Doxycycline Hyclate 100 Mg Cap PO 07/22/23 20:59 100 mg BID MARY Administration Fluticasone/Vilanterol 1 puffs 07/16/23 09:00 07/16/23 08:40 Fluticasone/Vilanterol 100/25mcg 14 Puffs/Inhaler INH 08/15/23 08:59 1 puffs DAILY MARY Administration Protocol Formoterol Fumarate 20 mcg 07/16/23 09:00 07/16/23 09:51 Formoterol 20 Mcg/2 Ml Vial NEB 08/15/23 08:59 20 mcg BID MARY Administration Guaifenesin 1,200 mg 07/15/23 21:00 07/16/23 08:38 Guaifenesin 600 Mg Tabcr PO 08/14/23 20:59 1,200 mg Q12 MARY Administration Methylprednisolone 40 mg/ 0.64 mls @ 1.5 mls/min 07/15/23 21:00 07/16/23 08:38 Syringe IV 08/14/23 20:59 1.5 mls/min Q12 MARY Administration Ceftriaxone Sodium 2,000 mg/ 70 mls @ 100 mls/hr 07/16/23 14:00 07/16/23 15:30 Dextrose IV 07/23/23 13:59 Infused Q24H MARY Infusion Protocol Insulin Aspart 0 units 07/16/23 16:30 07/16/23 17:53 Insulin Aspart Per Unit Charge SC 08/15/23 16:29 4 units ACHS MARY Administration Isosorbide Mononitrate 30 mg 07/16/23 09:00 07/16/23 08:40 Isosorbide [place] Extended Rel 30 Mg Tabcr PO 08/15/23 08:59 30 mg QAM MARY Administration Lorazepam 0.5 mg 07/15/23 20:54 07/16/23 02:51 Lorazepam 0.5 Mg Tab PO 08/14/23 20:53 0.5 mg TID PRN Administration Anxiety Metoprolol Succinate 25 mg 07/16/23 09:00 07/16/23 08:39 Metoprolol Succ 25mg Ext Rel Tab PO 08/15/23 08:59 25 mg QAM MARY Administration Mirtazapine 30 mg 07/15/23 21:00 07/15/23 21:13 Mirtazapine Tab 15 Mg Tab PO 08/14/23 20:59 30 mg HS MARY Administration Oxybutynin Chloride 10 mg 07/16/23 09:00 07/16/23 08:39 Oxybutynin Chloride Xl 5 Mg Tabcr PO 08/15/23 08:59 10 mg QAM MARY Administration Pantoprazole Sodium 40 mg 07/15/23 21:00 07/16/23 08:39 Pantoprazole 40 Mg Tab PO 08/14/23 20:59 40 mg AMHS MARY Administration Protocol Tramadol HCl 100 mg 07/15/23 20:27 07/16/23 08:48 Tramadol Hcl 50 Mg Tablet PO 08/14/23 20:26 100 mg Q8H PRN Administration SEVERE PAIN Warfarin Sodium 5 mg 07/15/23 21:00 07/15/23 21:13 Warfarin Sod 5 Mg Tab PO 08/14/23 20:59 5 mg SuTuThSa@1600 MARY Administration Warfarin Sodium 2.5 mg 07/16/23 16:00 07/16/23 14:49 Warfarin Sod 2.5 Mg Tab PO 08/15/23 15:59 2.5 mg MOWEFR@1600 MARY Administration PG Care Time/CCT Total # of Minutes Spent Total Time Spent with Patient: Total time spent is greater than 50% in coordination of care (as documented) at patient's floor/unit and/or counseling patient: Coding Level of Care Code 07246 IN/OBS CONSULT LVL 3,45M Diagnoses Congestive heart failure I50.9 Atrial fibrillation I48.91 Cerebrovascular disease I67.9 PAF (paroxysmal atrial fibrillation) I48.0 Anxiety and depression F41.9; F32.9 COPD (chronic obstructive pulmonary disease) J44.9 Anticoagulated on Coumadin Z79.01
[2023-07-16] MEDS: MIRTAZAPINE TAB 15 MG TAB PO SCH (22:05)
[2023-07-16] MEDS: MICONAZOLE NITRATE 2% CR 30 GM TUBE EXT SCH (22:36)
[2023-07-17] MEDS: ALBUT/IPRATROP 3MG/0.5MG NEB 3 ML VIAL NEB SCH ×6 (03:24→22:34)
[2023-07-17] MEDS: MICONAZOLE NITRATE POWDER 85 GM EXT PRN ×2 (03:35→08:30)
[2023-07-17] MEDS: ACETAMINOPHEN W/CODEINE #3 1 TAB PO PRN ×3 (03:43→20:56)
[2023-07-17] MEDS: FORMOTEROL 20 MCG/2 ML VIAL NEB SCH ×2 (07:38→18:58)
[2023-07-17] MEDS: BUDESONIDE 0.5 MG/2 ML VIAL (PULMICORT) NEB SCH ×2 (07:38→18:58)
[2023-07-17] MEDS: FUROSEMIDE 40 MG/4 ML VIAL IV SCH ×2 (08:27→14:40)
[2023-07-17] MEDS: INSULIN ASPART PER UNIT CHARGE SC SCH ×4 (08:27→20:56)
[2023-07-17] MEDS: DOXYCYCLINE HYCLATE 100 MG CAP PO SCH ×2 (08:28→21:00)
[2023-07-17] MEDS: methylPREDNISolone 40 MG in SYRINGE 0 ML IV SCH ×2 (08:28→21:01)
[2023-07-17] MEDS: BACLOFEN 10 MG TAB PO PRN ×2 (08:28→16:24)
[2023-07-17] MEDS: OXYBUTYNIN CHLORIDE XL 5 MG TABCR PO SCH (08:28)
[2023-07-17] MEDS: guaiFENesin 600 MG TABCR PO SCH ×2 (08:28→20:58)
[2023-07-17] MEDS: ISOSORBIDE MONO EXTENDED REL 30 MG TABCR PO SCH (08:28)
[2023-07-17] MEDS: LORazepam 0.5 MG TAB PO PRN ×3 (08:28→20:57)
[2023-07-17] MEDS: traMADol HCL 50 MG TABLET PO PRN ×2 (08:28→16:24)
[2023-07-17] MEDS: METOPROLOL SUCC 25MG EXT REL TAB PO SCH (08:29)
[2023-07-17] MEDS: busPIRone 5 MG TAB PO SCH ×2 (08:29→21:00)
[2023-07-17] MEDS: FLUTICASONE/VILANTEROL 100/25MCG 14 PUFFS/INHALER INH SCH (08:29)
[2023-07-17] MEDS: PANTOprazole 40 MG TAB PO SCH ×2 (08:29→20:58)
[2023-07-17] MEDS: MICONAZOLE NITRATE 2% CR 30 GM TUBE EXT SCH ×2 (08:30→21:02)
[2023-07-17 08:44] LABS: Basophils # (auto) 0.01 K/uL (0.00-0.20); Basophils % (auto) 0.1 %; Hematocrit (blood only) 30.8 % (37.0-47.0); Hemoglobin 9.3 g/dl (12.0-16.0); Immature Granulocytes # (auto) 0.11 K/uL (0.01-0.20); Immature Granulocytes % (auto) 1.1 %; Lymphocytes # (auto) 1.02 K/uL (1.20-3.40); Lymphocytes % (auto) 10.1 %; Mean Corpuscular Hemoglobin 27.4 pg (25.0-34.0); Mean Corpuscular Hgb Conc 30.2 g/dL (32.0-36.0); Mean Corpuscular Volume 90.6 fL (80.0-100.0); Mean Platelet Volume 9.4 fL (9.4-12.4); Monocytes # (auto) 0.32 K/uL (0.11-0.59); Monocytes % (auto) 3.2 %; Neutrophils # (auto) 8.67 K/uL (1.40-6.50); Neutrophils % (auto) 85.5 %; Nucleated RBC # (auto) 0.06 K/uL (0.00-0.12); Nucleated RBC % (auto) 0.6 %; Platelet Count 447 K/uL (130-400); RDW Standard Deviation 66.9 fL (36.4-46.3); White Blood Count 10.13 K/ul (4.8-10.8)
[2023-07-17 08:58] LABS: BUN Creatinine Ratio 36.8 (10-20); Calcium 8.4 mg/dl (8.6-10.3); Creatinine Clr Calc Pharmacy 106.9 ml/min; Est GFR (African American) 96.8 ml/min; Est GFR (Non-African American) 83.5 ml/min; Potassium 3.8 mmol/L (3.5-5.1)
[2023-07-17 09:00] LABS: INR 2.1 (0.9-1.1); Prothrombin Time 22.1 Seconds (9.0-12.0)
[2023-07-17] MEDS ORDERED: COUGH DROP (SUGAR FREE) LOZ 24 LOZ/1 BOX BUCCAL PRN (10:56)
--- NOTE | 2023-07-17 11:02 | Hospitalist Progress Note ---
Date of Service July 17, 2023 Assessment & Plan (1) COPD with exacerbation: (2) Atrial fibrillation: (3) History of stroke: (4) COPD (chronic obstructive pulmonary disease): (5) Chronic respiratory failure with hypoxia: (6) Congestive heart failure: (7) Anemia: Plan: COPD Exacerbation Acute on Chronic Hypoxic and hypercarbic respiratory Failure Acute on chronic HFpEF Patient is a 63-year-old female with history of COPD on 4 L of oxygen presents to the ED with shortness of breath. Chest x-ray on admission personally reviewed no definite infiltrate seen. No leukocytosis ABG personally reviewed; consistent with chronic respiratory acidosis. Respiratory viral panel negative. Continue on DuoNeb [id number], IV Solu-Medrol Inhaled budesonide and formoterol. Continue on IV Lasix 40 mg IV twice daily Strict input and output monitoring. Wean oxygen as tolerated to keep saturation above 88%. Sputum cx, procal ordered as per pulmology reccs Cutaneous candidiasis Cellulitis Significant redness in groin region. Also has tender nests/redness on left labia majora Started on miconazole nitrate. Given 1 dose of fluconazole 150 mg on ceftriaxone. Anemia -Hemoglobin of 9.3, hematocrit 33, no current need for transfusion, no overt bleeding, check guaiac as patient reports diarrhea and recently had supratherapeutic INR within the past week Anemia panel completed as an outpatient showing iron 17, TIBC 388, transferrin 4, B12 302, ferritin 9 - Indicative of iron deficiency anemia-patient reports that she has not picked this up [id number] and has been missing it for at least 2 weeks History of CVA, at least 9 strokes in the past - hx of PFO and hx of afib, on chronic anticoagulation with coumadin -Denies any focal weakness -PT/OT Sinus tachycardia Mild acute on Chronic diastolic CHF PFO Paroxysmal Afib - INR 2.1, trend with a.m. labs - Follows with Dr. Pacheco as outpatient, reports per last note tachycardia likely physiologic and related to her underlying lung disease, was started on metoprolol succinate 25 mg daily, continue isosorbide mononitrate, warfarin, furosemide, potassium Diarrhea - Reports this is increased recently, she had been on antibiotics in March for UTI as well as 2 weeks ago completed course of Bactrim -C. difficile stool culture negative. Urinary Incontinence - place purwick -Urinalysis not suggestive of infection. Moderate protein malnutrition -Albumin is decreased at 3.3 -Granddaughter reports that she drinks primarily Pepsi at home, minimal water intake - BMI of 59.7 Depression and anxiety - Continue home antihypertensives -Allow Ativan as tolerates this at home DVT PPx: Coumadin FEN/GI: Heart healthy diet Access/lines: 2 peripheral IVs CODE STATUS: Full code Dispo: Patient from home with daughter as caregiver from Wednesday to Wednesday. PT OT ordered. Time spent evaluating patient, direct bedside care, chart review, placing orders, interpretation of diagnostic studies, discussion with consultants, patient, and family members, as well as other required patient management activities is 60 minutes. Please note the above document was generated using voice recognition software. It may contain grammatical, syntax or spelling errors. Any formal questions or concerns about the content, text or information contained within the body of this dictation should be directly addressed to the provider for clarification Admission and Anticipated Discharge Date Admission Date: July 15, 2023 Subjective Patient seen and examined at bedside. She reports of sore throat. Reports that her breathing is similar to her admission. Review of Systems Review of Systems: All systems reviewed & are unremarkable except as noted in Subjective Physical Exam Physical Exam: Constitutional: Alert oriented x3; appears to be in mild distress. Morbidly obese. Respiratory: Bilateral diffuse wheeze heard. Cardiovascular: RRR, no murmur, no edema Vessels: no JVD or carotid bruit Chest: normal inspection of chest Abdomen: normal bowel sounds, soft, nontender, no hepatosplenomegaly Pelvic: Appears to have redness in groin area. Also tenderness and redness on left labia majora Musculoskeletal: no cyanosis or clubbing, extremities motor strength 5/5 Skin: no rashes, warm and dry normal turgor Neurologic: PERRL, EOMI, accommodation nl, no face palsy, no dysarthria CN's II- XI intact bilaterally and moves all extremities Psychiatric: A+Ox3, euthymic affect Results & Data Results & Data Vital Signs (Past 12 Hours) Vital Signs Temp Pulse Pulse Resp BP Pulse Ox O2 Del Method 07/17/23 08:00 80 07/17/23 07:29 36.6 C 81 16 103/68 95 Nasal Cannula 07/17/23 07:42 87 20 92 Nasal Cannula 07/17/23 03:31 36.7 C 74 20 97/65 L 95 Nasal Cannula 07/17/23 01:07 85 07/17/23 01:07 Nasal Cannula O2 Flow Rate 07/17/23 08:00 07/17/23 07:29 5 07/17/23 07:42 5 07/17/23 03:31 5 07/17/23 01:07 07/17/23 01:07 5 Laboratory Results Laboratory Results WBC 10.13 K/ul (4.8-10.8) 07/17/23 07:43 RBC 3.40 M/uL (4.20-5.40) L 07/17/23 07:43 Hgb 9.3 g/dl (12.0-16.0) L 07/17/23 07:43 Hct 30.8 % (37.0-47.0) L 07/17/23 07:43 MCV 90.6 fL (80.0-100.0) 07/17/23 07:43 MCH 27.4 pg (25.0-34.0) 07/17/23 07:43 MCHC 30.2 g/dL (32.0-36.0) L 07/17/23 07:43 RDW Std Deviation 66.9 fL (36.4-46.3) H 07/17/23 07:43 RDW Coeff of [place]ula 20.0 % (11.5-14.5) H 07/17/23 07:43 Plt Count 447 K/uL (130-400) H 07/17/23 07:43 MPV 9.4 fL (9.4-12.4) 07/17/23 07:43 Immature Gran % (Auto) 1.1 % 07/17/23 07:43 Neut % (Auto) 85.5 % 07/17/23 07:43 Lymph % (Auto) 10.1 % 07/17/23 07:43 [place] % (Auto) 3.2 % 07/17/23 07:43 Eos % (Auto) 0.0 % 07/17/23 07:43 Baso % (Auto) 0.1 % 07/17/23 07:43 Neut # (Auto) 8.67 K/uL (1.40-6.50) H 07/17/23 07:43 Lymph # (Auto) 1.02 K/uL (1.20-3.40) L 07/17/23 07:43 [place] # (Auto) 0.32 K/uL (0.11-0.59) 07/17/23 07:43 Eos # (Auto) 0.00 K/uL (0.00-0.50) 07/17/23 07:43 Baso # (Auto) 0.01 K/uL (0.00-0.20) 07/17/23 07:43 Immature Gran # (Auto) 0.11 K/uL (0.01-0.20) 07/17/23 07:43 Absolute Nucleated RBC 0.06 K/uL (0.00-0.12) 07/17/23 07:43 Nucleated RBC % (auto) 0.6 % 07/17/23 07:43 Polychromasia 1+ 07/15/23 13:45 Anisocytosis Present 07/15/23 13:45 Stomatocytes 1+ 07/15/23 13:45 PT 22.1 Seconds (9.0-12.0) H 07/17/23 07:43 INR 2.1 (0.9-1.1) H 07/17/23 07:43 D-Dimer < 190 ug/L FEU (0-500) 07/15/23 13:45 VBG pH 7.33 (7.36-7.41) L 07/15/23 13:45 VBG pCO2 73 mmHg (38-50) H 07/15/23 13:45 VBG pO2 26 mmHg 07/15/23 13:45 VBG HCO3 39 mmol/L 07/15/23 13:45 VBG O2 Saturation < 60.0 % 07/15/23 13:45 VBG Base Excess 9.6 mEq/L 07/15/23 13:45 Sodium 138 mmol/L (136-145) 07/17/23 07:43 Potassium 3.8 mmol/L (3.5-5.1) 07/17/23 07:43 Chloride 96 mmol/L (98-107) L 07/17/23 07:43 Carbon Dioxide 36 mmol/L (21-32) H 07/17/23 07:43 Anion Gap 6 (3-11) 07/17/23 07:43 BUN 28 mg/dl (6-23) H 07/17/23 07:43 Creatinine 0.76 mg/dl (0.6-1.2) 07/17/23 07:43 Est Cr Clr Drug Dosing 106.9 ml/min 07/17/23 07:43 Est GFR ( Amer) 96.8 ml/min 07/17/23 07:43 Est GFR (Non-Af Amer) 83.5 ml/min 07/17/23 07:43 BUN/Creatinine Ratio 36.8 (10-20) H 07/17/23 07:43 Glucose 180 mg/dl (70-99(Fasting)) H 07/17/23 07:43 POC Glucose 187 mg/dl (70-99) H 07/17/23 08:02 Calcium 8.4 mg/dl (8.6-10.3) L 07/17/23 07:43 Total Bilirubin 0.1 mg/dl (0.2-1.0) L 07/15/23 15:09 AST 12 U/L (13-39) L 07/15/23 15:09 ALT 9 U/L (7-52) 07/15/23 15:09 Alkaline Phosphatase 82 U/L (34-104) 07/15/23 15:09 Troponin I High Sens 4.8 pg/ml (0-14) 07/15/23 21:04 B-Natriuretic Peptide 204 pg/ml (0-100) H 07/15/23 15:09 Total Protein 6.2 gm/dl (6.0-8.3) 07/15/23 15:09 Albumin 3.3 gm/dl (3.4-5.0) L 07/15/23 15:09 Globulin 2.9 gm/dl (2.5-4.0) 07/15/23 15:09 Albumin/Globulin Ratio 1.1 (0.9-2) 07/15/23 15:09 Urine Color Yellow 07/16/23 02:18 Urine Appearance Clear (Clear) 07/16/23 02:18 Urine pH 6.5 (4.5-7.5) 07/16/23 02:[address] [place] [address] 1.015 (1.000-1.030) 07/16/23 02:18 Urine Protein Negative (Negative) 07/16/23 02:18 Urine Glucose (UA) Negative (Negative) 07/16/23 02:18 Urine Ketones Negative (Negative) 07/16/23 02:18 Urine Blood Negative (Negative) 07/16/23 02:18 Urine Nitrite Negative (Negative) 07/16/23 02:18 Urine Bilirubin Negative (Negative) 07/16/23 02:18 Urine Urobilinogen Negative (Negative) 07/16/23 02:18 Ur Leukocyte Esterase Negative (Negative) 07/16/23 02:18 Stl C. cayetanensis PCR Not Detected (NotDetected) 07/16/23 02:18 Stool Rotavirus A PCR Not Detected (NotDetected) 07/16/23 02:18 Stl Adenov F 40/41 PCR Not Detected (NotDetected) 07/16/23 02:18 Stool Astrovirus (PCR) Not Detected (NotDetected) 07/16/23 02:18 Stool Campylobacter PCR Not Detected (NotDetected) 07/16/23 02:18 Stl C. diff Tox B Gene Negative Cdiff Gene (Neg) 07/16/23 02:18 Stool Cryptosporidium PCR Not Detected (NotDetected) 07/16/23 02:18 Stl E.coli Shiga Tox PCR Not Detected (NotDetected) 07/16/23 02:18 Stl Enterotoxigenic E PCR Not Detected (NotDetected) 07/16/23 02:18 Stool EPEC (PCR) Not Detected (NotDetected) 07/16/23 02:18 Stool EAEC (PCR) Not Detected (NotDetected) 07/16/23 02:18 Stl E. histolytica PCR Not Detected (NotDetected) 07/16/23 02:18 Stool Giardia Lamblia PCR Not Detected (NotDetected) 07/16/23 02:18 Stool Salmonella PCR Not Detected (NotDetected) 07/16/23 02:18 Stool Sapovirus (PCR) Not Detected (NotDetected) 07/16/23 02:18 Stl P. shigelloides PCR Not Detected (NotDetected) 07/16/23 02:18 Stl Shigella/EIEC PCR Not Detected (NotDetected) 07/16/23 02:18 St Y.enterocolitica PCR Not Detected (NotDetected) 07/16/23 02:18 Stool Vibrio (PCR) Not Detected (NotDetected) 07/16/23 02:18 Stl Vibrio cholerae PCR Not Detected (NotDetected) 07/16/23 02:18 Stl Norovirus GI/GII PCR Not Detected (NotDetected) 07/16/23 02:18 Adenovirus (PCR) Not Detected (NotDetected) 07/15/23 Unknown B. pertussis DNA (PCR) Not Detected (NotDetected) 07/15/23 Unknown B.parapertussis DNA PCR Not Detected (NotDetected) 07/15/23 Unknown C. pneumoniae DNA (PCR) Not Detected (NotDetected) 07/15/23 Unknown Coronavirus OC43 (PCR) Not Detected (NotDetected) 07/15/23 Unknown Coronavirus HKU1 (PCR) Not Detected (NotDetected) 07/15/23 Unknown Coronavirus 229E (PCR) Not Detected (NotDetected) 07/15/23 Unknown SARS-CoV-2 (PCR) Not Detected (NotDetected) 07/15/23 Unknown Coronavirus NL63 (PCR) Not Detected (NotDetected) 07/15/23 Unknown Human Metapneumovir PCR Not Detected (NotDetected) 07/15/23 Unknown Influenza Type A (PCR) Not Detected (NotDetected) 07/15/23 Unknown Influenza Type B (PCR) Not Detected (NotDetected) 07/15/23 Unknown M. pneumoniae (PCR) Not Detected (NotDetected) 07/15/23 Unknown Parainfluenza 1 (PCR) Not Detected (NotDetected) 07/15/23 Unknown Parainfluenza 2 (PCR) Not Detected (NotDetected) 07/15/23 Unknown Parainfluenza 3 (PCR) Not Detected (NotDetected) 07/15/23 Unknown Parainfluenza 4 (PCR) Not Detected (NotDetected) 07/15/23 Unknown RSV (PCR) Not Detected (NotDetected) 07/15/23 Unknown Entero/Rhino (PCR) Not Detected (NotDetected) 07/15/23 Unknown Impressions Chest X-Ray 07/15/23 13:36 SINGLE VIEW CHEST CLINICAL HISTORY: Dyspnea FINDINGS: An AP, portable, upright chest radiograph is compared to study dated 08/20/2022. Correlation is made with chest CT dated 09/16/2015. The examination is degraded by portable technique, large body habitus, and apical lordotic positioning. The cardiomediastinal silhouette is unremarkable. There is bibasilar atelectasis. The lungs and pleural spaces are otherwise clear. No pneumothorax is seen. The skeletal structures are osteopenic. The bony thorax is grossly intact. IMPRESSION: No active disease in the chest. ACT 112: Negative or not required by law. Electronically signed by: Donavon Littlejohn M.D. 07/15/2023 2:28 PM
--- NOTE | 2023-07-17 12:26 | Pulmonology Progress Note ---
Date of Service July 17, 2023 Assessment & Plan (1) Congestive heart failure: (2) Atrial fibrillation: (3) Cerebrovascular disease: (4) PAF (paroxysmal atrial fibrillation): (5) Anxiety and depression: (6) COPD (chronic obstructive pulmonary disease): (7) Anticoagulated on Coumadin: Plan ASSESSMENT/PLAN: 1. Acute Respiratory Failure with Hypoxia -COPD Exacerbation -Acute Bronchitis vs HF? -steroids -inhalers: Continue Breo-Ellipta -sputum culture -mucinex -flutter valve -procalcitonin-negative -supplemental oxygen -F/U with [facility] 2. Chest Pain -ECG -troponins -ECHOL Grade I Diastolic Dysfunction, EF=>70% 3. Paroxsymal Atrial Fibrillation -continue coumadin -serial ECG'S -low dose beta-rosio 4. Dementia -continue home medications 5. Stroke Hx -continue Coumadin -PT/OT 6. Depression/Anxiety -Continue her home medications Total pulmonary time spent examining and speaking the patient, reviewing all of her diagnostic studies and developing a pulmonary management plan exclusive any invasive procedures or family conferences today was 36 minutes today. Admission and Anticipated Discharge Date Admission Date: July 15, 2023 Subjective Patient remains on 5 L nasal cannula currently receiving her morning medications and states that her breathing is essentially the same. Although, she does not report any new problems overnight or this morning. Review of Systems Review of Systems: All systems reviewed & are unremarkable except as noted in Subjective Respiratory: Increasing dyspnea with wheezing. Normally uses 4 L/min of oxygen at home. Cardiovascular: Additional Comments: Experiencing more chest pain with radiation to her arm and chest. Physical Exam Constitutional: WD/WN, vitals as above She appears in no acute cardiac or respiratory distress Eyes: PERRL, conjunctivae normal, anicteric sclerae ENMT: external ear and nose normal, oropharynx normal Neck: trachea midline, no thyromegaly Respiratory: Poor inspiratory and expiratory effort, scattered wheezing throughout all lung mena. No coughing at this time. Diminished breath sounds to the bases Cardiovascular: RRR, no murmur, no edema Gastrointestinal (Abdomen): normal bowel sounds, soft, nontender, no hepatosplenomegaly Musculoskeletal: no cyanosis or clubbing, extremities motor strength 5/5 Skin: no rashes, warm and dry Neurologic: patellar DTR's 2+ bilat, sensation intact and PERRL, EOMI, accommodation nl, no face palsy, no dysarthria Psychiatric: A+Ox3, euthymic affect Results & Data Results & Data Vital Signs (Past 12 Hours) Vital Signs Temp Pulse Pulse Resp BP Pulse Ox O2 Del Method 07/17/23 11:15 37 C 85 22 98/66 L 93 Nebulizer 07/17/23 11:02 85 20 91 Nasal Cannula 07/17/23 08:00 80 07/17/23 07:29 36.6 C 81 16 103/68 95 Nasal Cannula 07/17/23 07:42 87 20 92 Nasal Cannula 07/17/23 03:31 36.7 C 74 20 97/65 L 95 Nasal Cannula 07/17/23 01:07 85 07/17/23 01:07 Nasal Cannula O2 Flow Rate 07/17/23 11:15 07/17/23 11:02 5 07/17/23 08:00 07/17/23 07:29 5 07/17/23 07:42 5 07/17/23 03:31 5 07/17/23 01:07 07/17/23 01:07 5 Laboratory Results Laboratory Results WBC 10.13 K/ul (4.8-10.8) 07/17/23 07:43 RBC 3.40 M/uL (4.20-5.40) L 07/17/23 07:43 Hgb 9.3 g/dl (12.0-16.0) L 07/17/23 07:43 Hct 30.8 % (37.0-47.0) L 07/17/23 07:43 MCV 90.6 fL (80.0-100.0) 07/17/23 07:43 MCH 27.4 pg (25.0-34.0) 07/17/23 07:43 MCHC 30.2 g/dL (32.0-36.0) L 07/17/23 07:43 RDW Std Deviation 66.9 fL (36.4-46.3) H 07/17/23 07:43 RDW Coeff of Ursula 20.0 % (11.5-14.5) H 07/17/23 07:43 Plt Count 447 K/uL (130-400) H 07/17/23 07:43 MPV 9.4 fL (9.4-12.4) 07/17/23 07:43 Immature Gran % (Auto) 1.1 % 07/17/23 07:43 Neut % (Auto) 85.5 % 07/17/23 07:43 Lymph % (Auto) 10.1 % 07/17/23 07:43 Armstrong % (Auto) 3.2 % 07/17/23 07:43 Eos % (Auto) 0.0 % 07/17/23 07:43 Baso % (Auto) 0.1 % 07/17/23 07:43 Neut # (Auto) 8.67 K/uL (1.40-6.50) H 07/17/23 07:43 Lymph # (Auto) 1.02 K/uL (1.20-3.40) L 07/17/23 07:43 Armstrong # (Auto) 0.32 K/uL (0.11-0.59) 07/17/23 07:43 Eos # (Auto) 0.00 K/uL (0.00-0.50) 07/17/23 07:43 Baso # (Auto) 0.01 K/uL (0.00-0.20) 07/17/23 07:43 Immature Gran # (Auto) 0.11 K/uL (0.01-0.20) 07/17/23 07:43 Absolute Nucleated RBC 0.06 K/uL (0.00-0.12) 07/17/23 07:43 Nucleated RBC % (auto) 0.6 % 07/17/23 07:43 Polychromasia 1+ 07/15/23 13:45 Anisocytosis Present 07/15/23 13:45 Stomatocytes 1+ 07/15/23 13:45 PT 22.1 Seconds (9.0-12.0) H 07/17/23 07:43 INR 2.1 (0.9-1.1) H 07/17/23 07:43 D-Dimer < 190 ug/L FEU (0-500) 07/15/23 13:45 VBG pH 7.33 (7.36-7.41) L 07/15/23 13:45 VBG pCO2 73 mmHg (38-50) H 07/15/23 13:45 VBG pO2 26 mmHg 07/15/23 13:45 VBG HCO3 39 mmol/L 07/15/23 13:45 VBG O2 Saturation < 60.0 % 07/15/23 13:45 VBG Base Excess 9.6 mEq/L 07/15/23 13:45 Sodium 138 mmol/L (136-145) 07/17/23 07:43 Potassium 3.8 mmol/L (3.5-5.1) 07/17/23 07:43 Chloride 96 mmol/L (98-107) L 07/17/23 07:43 Carbon Dioxide 36 mmol/L (21-32) H 07/17/23 07:43 Anion Gap 6 (3-11) 07/17/23 07:43 BUN 28 mg/dl (6-23) H 07/17/23 07:43 Creatinine 0.76 mg/dl (0.6-1.2) 07/17/23 07:43 Est Cr Clr Drug Dosing 106.9 ml/min 07/17/23 07:43 Est GFR ( Amer) 96.8 ml/min 07/17/23 07:43 Est GFR (Non-Af Amer) 83.5 ml/min 07/17/23 07:43 BUN/Creatinine Ratio 36.8 (10-20) H 07/17/23 07:43 Glucose 180 mg/dl (70-99(Fasting)) H 07/17/23 07:43 POC Glucose 170 mg/dl (70-99) H 07/17/23 12:05 Calcium 8.4 mg/dl (8.6-10.3) L 07/17/23 07:43 Total Bilirubin 0.1 mg/dl (0.2-1.0) L 07/15/23 15:09 AST 12 U/L (13-39) L 07/15/23 15:09 ALT 9 U/L (7-52) 07/15/23 15:09 Alkaline Phosphatase 82 U/L (34-104) 07/15/23 15:09 Troponin I High Sens 4.8 pg/ml (0-14) 07/15/23 21:04 B-Natriuretic Peptide 204 pg/ml (0-100) H 07/15/23 15:09 Total Protein 6.2 gm/dl (6.0-8.3) 07/15/23 15:09 Albumin 3.3 gm/dl (3.4-5.0) L 07/15/23 15:09 Globulin 2.9 gm/dl (2.5-4.0) 07/15/23 15:09 Albumin/Globulin Ratio 1.1 (0.9-2) 07/15/23 15:09 Procalcitonin < 0.05 ng/ml (0-0.5) 07/17/23 11:09 Urine Color Yellow 07/16/23 02:18 Urine Appearance Clear (Clear) 07/16/23 02:18 Urine pH 6.5 (4.5-7.5) 07/16/23 02:18 Ur Specific [place] 1.015 (1.000-1.030) 07/16/23 02:18 Urine Protein Negative (Negative) 07/16/23 02:18 Urine Glucose (UA) Negative (Negative) 07/16/23 02:18 Urine Ketones Negative (Negative) 07/16/23 02:18 Urine Blood Negative (Negative) 07/16/23 02:18 Urine Nitrite Negative (Negative) 07/16/23 02:18 Urine Bilirubin Negative (Negative) 07/16/23 02:18 Urine Urobilinogen Negative (Negative) 07/16/23 02:18 Ur Leukocyte Esterase Negative (Negative) 07/16/23 02:18 Stl C. cayetanensis PCR Not Detected (NotDetected) 07/16/23 02:18 Stool Rotavirus A PCR Not Detected (NotDetected) 07/16/23 02:18 Stl Adenov F 40/41 PCR Not Detected (NotDetected) 07/16/23 02:18 Stool Astrovirus (PCR) Not Detected (NotDetected) 07/16/23 02:18 Stool Campylobacter PCR Not Detected (NotDetected) 07/16/23 02:18 Stl C. diff Tox B Gene Negative Cdiff Gene (Neg) 07/16/23 02:18 Stool Cryptosporidium PCR Not Detected (NotDetected) 07/16/23 02:18 Stl E.coli Shiga Tox PCR Not Detected (NotDetected) 07/16/23 02:18 Stl Enterotoxigenic E PCR Not Detected (NotDetected) 07/16/23 02:18 Stool EPEC (PCR) Not Detected (NotDetected) 07/16/23 02:18 Stool EAEC (PCR) Not Detected (NotDetected) 07/16/23 02:18 Stl E. histolytica PCR Not Detected (NotDetected) 07/16/23 02:18 Stool Giardia Lamblia PCR Not Detected (NotDetected) 07/16/23 02:18 Stool Salmonella PCR Not Detected (NotDetected) 07/16/23 02:18 Stool Sapovirus (PCR) Not Detected (NotDetected) 07/16/23 02:18 Stl P. shigelloides PCR Not Detected (NotDetected) 07/16/23 02:18 Stl Shigella/EIEC PCR Not Detected (NotDetected) 07/16/23 02:18 St Y.enterocolitica PCR Not Detected (NotDetected) 07/16/23 02:18 Stool Vibrio (PCR) Not Detected (NotDetected) 07/16/23 02:18 Stl Vibrio cholerae PCR Not Detected (NotDetected) 07/16/23 02:18 Stl Norovirus GI/GII PCR Not Detected (NotDetected) 07/16/23 02:18 Adenovirus (PCR) Not Detected (NotDetected) 07/15/23 Unknown B. pertussis DNA (PCR) Not Detected (NotDetected) 07/15/23 Unknown B.parapertussis DNA PCR Not Detected (NotDetected) 07/15/23 Unknown C. pneumoniae DNA (PCR) Not Detected (NotDetected) 07/15/23 Unknown Coronavirus OC43 (PCR) Not Detected (NotDetected) 07/15/23 Unknown Coronavirus HKU1 (PCR) Not Detected (NotDetected) 07/15/23 Unknown Coronavirus 229E (PCR) Not Detected (NotDetected) 07/15/23 Unknown SARS-CoV-2 (PCR) Not Detected (NotDetected) 07/15/23 Unknown Coronavirus NL63 (PCR) Not Detected (NotDetected) 07/15/23 Unknown Human Metapneumovir PCR Not Detected (NotDetected) 07/15/23 Unknown Influenza Type A (PCR) Not Detected (NotDetected) 07/15/23 Unknown Influenza Type B (PCR) Not Detected (NotDetected) 07/15/23 Unknown M. pneumoniae (PCR) Not Detected (NotDetected) 07/15/23 Unknown Parainfluenza 1 (PCR) Not Detected (NotDetected) 07/15/23 Unknown Parainfluenza 2 (PCR) Not Detected (NotDetected) 07/15/23 Unknown Parainfluenza 3 (PCR) Not Detected (NotDetected) 07/15/23 Unknown Parainfluenza 4 (PCR) Not Detected (NotDetected) 07/15/23 Unknown RSV (PCR) Not Detected (NotDetected) 07/15/23 Unknown Entero/Rhino (PCR) Not Detected (NotDetected) 07/15/23 Unknown Impressions Chest X-Ray 07/15/23 13:36 SINGLE VIEW CHEST CLINICAL HISTORY: Dyspnea FINDINGS: An AP, portable, upright chest radiograph is compared to study dated 08/20/2022. Correlation is made with chest CT dated 09/16/2015. The examination is degraded by portable technique, large body habitus, and apical lordotic positioning. The cardiomediastinal silhouette is unremarkable. There is bibasilar atelectasis. The lungs and pleural spaces are otherwise clear. No pneumothorax is seen. The skeletal structures are osteopenic. The bony thorax is grossly intact. IMPRESSION: No active disease in the chest. ACT 112: Negative or not required by law. Electronically signed by: Donavon Littlejohn M.D. 07/15/2023 2:28 PM Medications Administered Home Medications Medication Instructions Recorded Confirmed Last Taken albuterol sulfate 5 mg/mL(0.5 %) 2.5 mg inhalation DIRECTED PRN 08/20/22 07/15/23 Unknown solution for nebulization Shortness Of Breath Or Wheezing albuterol sulfate 90 mcg/actuation 2 puff inhalation QID PRN sob 08/20/22 07/15/23 01/13/23 06:00 aerosol inhaler baclofen 10 mg tablet 10 mg PO TID PRN Muscle Pain 08/20/22 07/15/23 01/12/23 buspirone 10 mg tablet 20 mg PO AMHS 08/20/22 07/15/23 01/13/23 06:00 cholecalciferol (vitamin D3) 25 25 mcg PO QAM 08/20/22 07/15/23 01/12/23 mcg (1,000 unit) capsule (Vitamin D3) furosemide 20 mg tablet (Lasix) 20 mg PO DAILY PRN .SWELLING IN 08/20/22 07/15/23 01/12/23 LOWER LEGS isosorbide mononitrate 30 mg 30 mg PO QAM 08/20/22 07/15/23 01/13/23 06:00 tablet,extended release 24 hr lorazepam 0.5 mg tablet 0.5 mg PO Q8 PRN Anxiety 08/20/22 07/15/23 01/12/23 mirtazapine 30 mg tablet 30 mg PO HS 08/20/22 07/15/23 01/12/23 tramadol 100 mg tablet 100 mg PO Q8 PRN .MOD-SEVERE PAIN 08/20/22 07/15/23 01/12/23 warfarin 5 mg tablet 2.5 mg PO MOWEFR@1600 08/20/22 07/15/23 01/07/23 ferrous sulfate 325 mg (65 mg 325 mg PO QAM 01/12/23 07/15/23 01/12/23 iron) tablet acetaminophen 300 mg-codeine 30 mg 1 tab PO Q6 PRN Moderate Pain 07/15/23 07/15/23 Unknown tablet (Scale Score 5-6) fluticasone propionate 115 2 puff inhalation AMHS 07/15/23 07/15/23 Unknown mcg-salmeterol 21 mcg/actuation HFA inhaler (Advair HFA) metoprolol succinate 25 mg 25 mg PO QAM 07/15/23 07/15/23 Unknown tablet,extended release 24 hr omeprazole 20 mg capsule,delayed 20 mg PO AMHS 07/15/23 07/15/23 Unknown release potassium chloride 10 mEq 10 meq PO AMHS 07/15/23 07/15/23 Unknown capsule,extended release solifenacin 10 mg tablet 10 mg PO QAM 07/15/23 07/15/23 Unknown warfarin 5 mg tablet 5 mg PO SUTUTHSA 07/15/23 07/15/23 Unknown Active Medications Generic Name Dose Route Start Last Admin Trade Name Freq PRN Reason Stop Dose Admin Acetaminophen/Codeine Phosphate 1 tab 07/15/23 20:17 07/17/23 10:36 Acetaminophen W/Codeine #3 1 Tab PO 08/14/23 20:16 1 tab Q6H PRN Administration Moderate Pain (Scale Score 5-6) Albuterol 3 ml 07/15/23 19:00 07/17/23 10:59 Albut/Ipratrop 3mg/0.5mg Neb 3 Ml Vial NEB 08/14/23 18:59 3 ml Q4R MARY Administration Protocol Baclofen 10 mg 07/15/23 20:17 07/17/23 08:28 Baclofen 10 Mg Tab PO 08/14/23 20:16 10 mg TID PRN Administration Muscle Pain/spasm Budesonide 0.5 mg 07/16/23 08:20 07/17/23 07:38 Budesonide 0.5 Mg/2 Ml Vial (Pulmicort) NEB 08/15/23 08:19 0.5 mg BIDR MARY Administration Buspirone HCl 20 mg 07/15/23 21:00 07/17/23 08:29 Buspirone 5 Mg Tab PO 08/14/23 20:59 20 mg AMHS MARY Administration Doxycycline Hyclate 100 mg 07/15/23 21:00 07/17/23 08:28 Doxycycline Hyclate 100 Mg Cap PO 07/22/23 20:59 100 mg BID MARY Administration Fluticasone/Vilanterol 1 puffs 07/16/23 09:00 07/17/23 08:29 Fluticasone/Vilanterol 100/25mcg 14 Puffs/Inhaler INH 08/15/23 08:59 1 puffs DAILY MARY Administration Protocol Formoterol Fumarate 20 mcg 07/16/23 09:00 07/17/23 07:38 Formoterol 20 Mcg/2 Ml Vial NEB 08/15/23 08:59 20 mcg BID MARY Administration Furosemide 40 mg 07/17/23 07:00 07/17/23 08:27 Furosemide 40 Mg/4 Ml Vial IV 08/16/23 06:59 40 mg [id number] MARY Administration Guaifenesin 1,200 mg 07/15/23 21:00 07/17/23 08:28 Guaifenesin 600 Mg Tabcr PO 08/14/23 20:59 1,200 mg Q12 MARY Administration Methylprednisolone 40 mg/ 0.64 mls @ 1.5 mls/min 07/15/23 21:00 07/17/23 08:28 Syringe IV 08/14/23 20:59 1.5 mls/min Q12 MARY Administration Ceftriaxone Sodium 2,000 mg/ 70 mls @ 100 mls/hr 07/16/23 14:00 07/16/23 15:30 Dextrose IV 07/23/23 13:59 Infused Q24H MARY Infusion Protocol Insulin Aspart 0 units 07/16/23 16:30 07/17/23 12:40 Insulin Aspart Per Unit Charge SC 08/15/23 16:29 6 units ACHS MARY Administration Isosorbide Mononitrate 30 mg 07/16/23 09:00 07/17/23 08:28 Isosorbide Armstrong Extended Rel 30 Mg Tabcr PO 08/15/23 08:59 30 mg QAM MARY Administration Lorazepam 0.5 mg 07/15/23 20:54 07/17/23 08:28 Lorazepam 0.5 Mg Tab PO 08/14/23 20:53 0.5 mg TID PRN Administration Anxiety Metoprolol Succinate 25 mg 07/16/23 09:00 07/17/23 08:29 Metoprolol Succ 25mg Ext Rel Tab PO 08/15/23 08:59 25 mg QAM MARY Administration Miconazole Nitrate 1 appln 07/16/23 21:00 07/17/23 08:30 Miconazole Nitrate 2% Cr 30 Gm Tube EXT 08/15/23 20:59 1 appln BID MARY Administration Miconazole Nitrate 1 appln 07/16/23 22:35 07/17/23 08:30 Miconazole Nitrate Powder 85 Gm EXT 08/15/23 22:34 1 appln PRN PRN Administration Affected Skin Folds Mirtazapine 30 mg 07/15/23 21:00 07/16/23 22:05 Mirtazapine Tab 15 Mg Tab PO 08/14/23 20:59 30 mg HS MARY Administration Oxybutynin Chloride 10 mg 07/16/23 09:00 07/17/23 08:28 Oxybutynin Chloride Xl 5 Mg Tabcr PO 08/15/23 08:59 10 mg QAM MARY Administration Pantoprazole Sodium 40 mg 07/15/23 21:00 07/17/23 08:29 Pantoprazole 40 Mg Tab PO 08/14/23 20:59 40 mg AMHS MARY Administration Protocol Tramadol HCl 100 mg 07/15/23 20:27 07/17/23 08:28 Tramadol Hcl 50 Mg Tablet PO 08/14/23 20:26 100 mg Q8H PRN Administration SEVERE PAIN Warfarin Sodium 5 mg 07/15/23 21:00 07/15/23 21:13 Warfarin Sod 5 Mg Tab PO 08/14/23 20:59 5 mg [id number]@1600 [facility] Administration Warfarin Sodium 2.5 mg 07/16/23 16:00 07/16/23 14:49 Warfarin Sod 2.5 Mg Tab PO 08/15/23 15:59 2.5 mg [id number]@1600 [facility] Administration PG Care Time/CCT Total # of Minutes Spent Total Time Spent with Patient: Total time spent is greater than 50% in coordination of care (as documented) at patient's floor/unit and/or counseling patient: Coding Level of Care Code 30972 SUB INP/OBS CARE 2/35MIN Diagnoses Congestive heart failure I50.9 Atrial fibrillation I48.91 Cerebrovascular disease I67.9 PAF (paroxysmal atrial fibrillation) I48.0 Anxiety and depression F41.9; F32.9 COPD (chronic obstructive pulmonary disease) J44.9 Anticoagulated on Coumadin Z79.01
[2023-07-17] MEDS: cefTRIAXone SODIUM 2,000 MG in DEXTROSE 5% 50 ML IV SCH (14:39)
[2023-07-17] MEDS: WARFARIN SOD 5 MG TAB PO SCH (14:40)
[2023-07-17] MEDS: MIRTAZAPINE TAB 15 MG TAB PO SCH (21:00)
[2023-07-18] MEDS: ALBUT/IPRATROP 3MG/0.5MG NEB 3 ML VIAL NEB SCH ×7 (02:51→23:46)
[2023-07-18 06:02] LABS: Basophils # (auto) 0.01 K/uL (0.00-0.20); Basophils % (auto) 0.1 %; Hematocrit (blood only) 31.2 % (37.0-47.0); Hemoglobin 9.2 g/dl (12.0-16.0); Immature Granulocytes # (auto) 0.09 K/uL (0.01-0.20); Immature Granulocytes % (auto) 0.9 %; Lymphocytes # (auto) 0.96 K/uL (1.20-3.40); Lymphocytes % (auto) 9.6 %; Mean Corpuscular Hemoglobin 26.9 pg (25.0-34.0); Mean Corpuscular Hgb Conc 29.5 g/dL (32.0-36.0); Mean Corpuscular Volume 91.2 fL (80.0-100.0); Mean Platelet Volume 9.1 fL (9.4-12.4); Monocytes # (auto) 0.35 K/uL (0.11-0.59); Monocytes % (auto) 3.5 %; Neutrophils # (auto) 8.58 K/uL (1.40-6.50); Neutrophils % (auto) 85.9 %; Nucleated RBC # (auto) 0.04 K/uL (0.00-0.12); Nucleated RBC % (auto) 0.4 %; Platelet Count 473 K/uL (130-400); RDW Coefficient of Variation 20.1 % (11.5-14.5); RDW Standard Deviation 67.2 fL (36.4-46.3); Red Blood Count 3.42 M/uL (4.20-5.40); White Blood Count 9.99 K/ul (4.8-10.8)
[2023-07-18 06:26] LABS: Est GFR (African American) 89.6 ml/min; Potassium 3.9 mmol/L (3.5-5.1)
[2023-07-18 06:27] LABS: BUN Creatinine Ratio 40.7 (10-20); Calcium 8.4 mg/dl (8.6-10.3); Creatinine Clr Calc Pharmacy 99.5 ml/min; Est GFR (Non-African American) 77.3 ml/min
[2023-07-18 06:58] LABS: Anisocytosis Present; Polychromasia 1+; Stomatocytes 2+
[2023-07-18] MEDS: LORazepam 0.5 MG TAB PO PRN ×3 (07:13→21:39)
[2023-07-18] MEDS: ACETAMINOPHEN W/CODEINE #3 1 TAB PO PRN ×3 (07:13→22:58)
[2023-07-18 07:31] LABS: INR 1.8 (0.9-1.1)
[2023-07-18] MEDS: BUDESONIDE 0.5 MG/2 ML VIAL (PULMICORT) NEB SCH ×2 (07:34→18:48)
[2023-07-18] MEDS: FORMOTEROL 20 MCG/2 ML VIAL NEB SCH ×2 (07:34→18:48)
[2023-07-18] MEDS: busPIRone 5 MG TAB PO SCH ×2 (09:04→21:40)
[2023-07-18] MEDS: INSULIN ASPART PER UNIT CHARGE SC SCH ×4 (09:04→21:39)
[2023-07-18] MEDS: traMADol HCL 50 MG TABLET PO PRN ×2 (09:04→18:08)
[2023-07-18] MEDS: BACLOFEN 10 MG TAB PO PRN ×2 (09:04→18:08)
[2023-07-18] MEDS: methylPREDNISolone 40 MG in SYRINGE 0 ML IV SCH ×2 (09:04→21:40)
[2023-07-18] MEDS: FUROSEMIDE 40 MG/4 ML VIAL IV SCH ×2 (09:04→15:01)
[2023-07-18] MEDS: guaiFENesin 600 MG TABCR PO SCH ×2 (09:05→21:42)
[2023-07-18] MEDS: OXYBUTYNIN CHLORIDE XL 5 MG TABCR PO SCH (09:05)
[2023-07-18] MEDS: METOPROLOL SUCC 25MG EXT REL TAB PO SCH (09:05)
[2023-07-18] MEDS: FLUTICASONE/VILANTEROL 100/25MCG 14 PUFFS/INHALER INH SCH (09:05)
[2023-07-18] MEDS: DOXYCYCLINE HYCLATE 100 MG CAP PO SCH ×2 (09:05→21:42)
[2023-07-18] MEDS: PANTOprazole 40 MG TAB PO SCH ×2 (09:05→21:41)
[2023-07-18] MEDS: ISOSORBIDE MONO EXTENDED REL 30 MG TABCR PO SCH (09:05)
[2023-07-18] MEDS: MICONAZOLE NITRATE 2% CR 30 GM TUBE EXT SCH ×2 (09:06→21:44)
--- NOTE | 2023-07-18 11:55 | Pulmonology Progress Note ---
Date of Service July 18, 2023 Assessment & Plan (1) Congestive heart failure: (2) Atrial fibrillation: (3) Cerebrovascular disease: (4) PAF (paroxysmal atrial fibrillation): (5) Anxiety and depression: (6) COPD (chronic obstructive pulmonary disease): (7) Anticoagulated on Coumadin: Plan ASSESSMENT/PLAN: 1. Acute Respiratory Failure with Hypoxia -COPD Exacerbation -Acute Bronchitis vs HF? -steroids -inhalers: Continue Breo-Ellipta -sputum culture -mucinex -flutter valve -procalcitonin-negative -supplemental oxygen -F/U with [facility] 2. Chest Pain -ECG -troponins -ECHOL Grade I Diastolic Dysfunction, EF=>70% -continue diuresis 3. Paroxsymal Atrial Fibrillation -continue coumadin -serial ECG'S -low dose beta-rosio 4. Dementia -continue home medications 5. Stroke Hx -continue Coumadin -PT/OT 6. Depression/Anxiety -Continue her home medications Total pulmonary time spent examining and speaking the patient, reviewing all of her diagnostic studies and developing a pulmonary management plan exclusive any invasive procedures or family conferences today was 38 minutes today. Admission and Anticipated Discharge Date Admission Date: July 15, 2023 Subjective Patient now on 4 L nasal cannula but seems quite anxious states that she is experiencing more wheezing than normal and that she is experiencing some chest tightness this morning. Review of Systems Review of Systems: All systems reviewed & are unremarkable except as noted in Subjective Respiratory: Increasing dyspnea with wheezing. Normally uses 4 L/min of oxygen at home. Cardiovascular: Additional Comments: Experiencing more chest pain with radiation to her arm and chest. Physical Exam Constitutional: WD/WN, vitals as above Morbidly obese. Eyes: PERRL, conjunctivae normal, anicteric sclerae ENMT: external ear and nose normal, oropharynx normal Neck: trachea midline, no thyromegaly Respiratory: Scattered wheezing without coughing in all lung mena. Diminished breath sounds in the bases although this may be due to secondary to her significant morbid obesity Cardiovascular: RRR, no murmur, no edema Gastrointestinal (Abdomen): normal bowel sounds, soft, nontender, no hepatosplenomegaly Musculoskeletal: no cyanosis or clubbing, extremities motor strength 5/5 Skin: no rashes, warm and dry Neurologic: patellar DTR's 2+ bilat, sensation intact and PERRL, EOMI, accommodation nl, no face palsy, no dysarthria Psychiatric: A+Ox3, euthymic affect Results & Data Results & Data Vital Signs (Past 12 Hours) Vital Signs Temp Pulse Resp BP BP Pulse Ox O2 Del Method 07/18/23 11:10 36.4 C L 85 22 108/68 90 Nasal Cannula 07/18/23 10:45 88 18 92 Nasal Cannula 07/18/23 08:37 86 18 90 Nasal Cannula 07/18/23 07:20 36.6 C 82 22 121/76 96 Nasal Cannula 07/18/23 07:37 79 18 91 Nasal Cannula 07/18/23 03:00 36.7 C 80 20 114/72 93 Nasal Cannula 07/18/23 02:52 80 18 93 Nasal Cannula O2 Flow Rate 07/18/23 11:10 4 07/18/23 10:45 4 07/18/23 08:37 4 07/18/23 07:20 5 07/18/23 07:37 4 07/18/23 03:00 5 07/18/23 02:52 5 Laboratory Results Laboratory Results WBC 9.99 K/ul (4.8-10.8) 07/18/23 05:24 RBC 3.42 M/uL (4.20-5.40) L 07/18/23 05:24 Hgb 9.2 g/dl (12.0-16.0) L 07/18/23 05:24 Hct 31.2 % (37.0-47.0) L 07/18/23 05:24 MCV 91.2 fL (80.0-100.0) 07/18/23 05:24 MCH 26.9 pg (25.0-34.0) 07/18/23 05:24 MCHC 29.5 g/dL (32.0-36.0) L 07/18/23 05:24 RDW Std Deviation 67.2 fL (36.4-46.3) H 07/18/23 05:24 RDW Coeff of Ursula 20.1 % (11.5-14.5) H 07/18/23 05:24 Plt Count 473 K/uL (130-400) H 07/18/23 05:24 MPV 9.1 fL (9.4-12.4) L 07/18/23 05:24 Immature Gran % (Auto) 0.9 % 07/18/23 05:24 Neut % (Auto) 85.9 % 07/18/23 05:24 Lymph % (Auto) 9.6 % 07/18/23 05:24 [place] % (Auto) 3.5 % 07/18/23 05:24 Eos % (Auto) 0.0 % 07/18/23 05:24 Baso % (Auto) 0.1 % 07/18/23 05:24 Neut # (Auto) 8.58 K/uL (1.40-6.50) H 07/18/23 05:24 Lymph # (Auto) 0.96 K/uL (1.20-3.40) L 07/18/23 05:24 [place] # (Auto) 0.35 K/uL (0.11-0.59) 07/18/23 05:24 Eos # (Auto) 0.00 K/uL (0.00-0.50) 07/18/23 05:24 Baso # (Auto) 0.01 K/uL (0.00-0.20) 07/18/23 05:24 Immature Gran # (Auto) 0.09 K/uL (0.01-0.20) 07/18/23 05:24 Absolute Nucleated RBC 0.04 K/uL (0.00-0.12) 07/18/23 05:24 Nucleated RBC % (auto) 0.4 % 07/18/23 05:24 Polychromasia 1+ 07/18/23 05:24 Anisocytosis Present 07/18/23 05:24 Stomatocytes 2+ 07/18/23 05:24 PT 19.0 Seconds (9.0-12.0) H 07/18/23 05:24 INR 1.8 (0.9-1.1) H 07/18/23 05:24 D-Dimer < 190 ug/L FEU (0-500) 07/15/23 13:45 VBG pH 7.33 (7.36-7.41) L 07/15/23 13:45 VBG pCO2 73 mmHg (38-50) H 07/15/23 13:45 VBG pO2 26 mmHg 07/15/23 13:45 VBG HCO3 39 mmol/L 07/15/23 13:45 VBG O2 Saturation < 60.0 % 07/15/23 13:45 VBG Base Excess 9.6 mEq/L 07/15/23 13:45 Sodium 139 mmol/L (136-145) 07/18/23 05:24 Potassium 3.9 mmol/L (3.5-5.1) 07/18/23 05:24 Chloride 98 mmol/L (98-107) 07/18/23 05:24 Carbon Dioxide 35 mmol/L (21-32) H 07/18/23 05:24 Anion Gap 6 (3-11) 07/18/23 05:24 BUN 33 mg/dl (6-23) H 07/18/23 05:24 Creatinine 0.81 mg/dl (0.6-1.2) 07/18/23 05:24 Est Cr Clr Drug Dosing 99.5 ml/min 07/18/23 05:24 Est GFR ( Amer) 89.6 ml/min 07/18/23 05:24 Est GFR (Non-Af Amer) 77.3 ml/min 07/18/23 05:24 BUN/Creatinine Ratio 40.7 (10-20) H 07/18/23 05:24 Glucose 187 mg/dl (70-99(Fasting)) H 07/18/23 05:24 POC Glucose 193 mg/dl (70-99) H 07/18/23 08:12 Calcium 8.4 mg/dl (8.6-10.3) L 07/18/23 05:24 Total Bilirubin 0.1 mg/dl (0.2-1.0) L 07/15/23 15:09 AST 12 U/L (13-39) L 07/15/23 15:09 ALT 9 U/L (7-52) 07/15/23 15:09 Alkaline Phosphatase 82 U/L (34-104) 07/15/23 15:09 Troponin I High Sens 4.8 pg/ml (0-14) 07/15/23 21:04 B-Natriuretic Peptide 204 pg/ml (0-100) H 07/15/23 15:09 Total Protein 6.2 gm/dl (6.0-8.3) 07/15/23 15:09 Albumin 3.3 gm/dl (3.4-5.0) L 07/15/23 15:09 Globulin 2.9 gm/dl (2.5-4.0) 07/15/23 15:09 Albumin/Globulin Ratio 1.1 (0.9-2) 07/15/23 15:09 Procalcitonin < 0.05 ng/ml (0-0.5) 07/17/23 11:09 Urine Color Yellow 07/16/23 02:18 Urine Appearance Clear (Clear) 07/16/23 02:18 Urine pH 6.5 (4.5-7.5) 07/16/23 02:18 Ur Specific Cecil 1.015 (1.000-1.030) 07/16/23 02:18 Urine Protein Negative (Negative) 07/16/23 02:18 Urine Glucose (UA) Negative (Negative) 07/16/23 02:18 Urine Ketones Negative (Negative) 07/16/23 02:18 Urine Blood Negative (Negative) 07/16/23 02:18 Urine Nitrite Negative (Negative) 07/16/23 02:18 Urine Bilirubin Negative (Negative) 07/16/23 02:18 Urine Urobilinogen Negative (Negative) 07/16/23 02:18 Ur Leukocyte Esterase Negative (Negative) 07/16/23 02:18 Stl C. cayetanensis PCR Not Detected (NotDetected) 07/16/23 02:18 Stool Rotavirus A PCR Not Detected (NotDetected) 07/16/23 02:18 Stl Adenov F 40/41 PCR Not Detected (NotDetected) 07/16/23 02:18 Stool Astrovirus (PCR) Not Detected (NotDetected) 07/16/23 02:18 Stool Campylobacter PCR Not Detected (NotDetected) 07/16/23 02:18 Stl C. diff Tox B Gene Negative Cdiff Gene (Neg) 07/16/23 02:18 Stool Cryptosporidium PCR Not Detected (NotDetected) 07/16/23 02:18 Stl E.coli Shiga Tox PCR Not Detected (NotDetected) 07/16/23 02:18 Stl Enterotoxigenic E PCR Not Detected (NotDetected) 07/16/23 02:18 Stool EPEC (PCR) Not Detected (NotDetected) 07/16/23 02:18 Stool EAEC (PCR) Not Detected (NotDetected) 07/16/23 02:18 Stl E. histolytica PCR Not Detected (NotDetected) 07/16/23 02:18 Stool Giardia Lamblia PCR Not Detected (NotDetected) 07/16/23 02:18 Stool Salmonella PCR Not Detected (NotDetected) 07/16/23 02:18 Stool Sapovirus (PCR) Not Detected (NotDetected) 07/16/23 02:18 Stl P. shigelloides PCR Not Detected (NotDetected) 07/16/23 02:18 Stl Shigella/EIEC PCR Not Detected (NotDetected) 07/16/23 02:18 St Y.enterocolitica PCR Not Detected (NotDetected) 07/16/23 02:18 Stool Vibrio (PCR) Not Detected (NotDetected) 07/16/23 02:18 Stl Vibrio cholerae PCR Not Detected (NotDetected) 07/16/23 02:18 Stl Norovirus GI/GII PCR Not Detected (NotDetected) 07/16/23 02:18 Adenovirus (PCR) Not Detected (NotDetected) 07/15/23 Unknown B. pertussis DNA (PCR) Not Detected (NotDetected) 07/15/23 Unknown B.parapertussis DNA PCR Not Detected (NotDetected) 07/15/23 Unknown C. pneumoniae DNA (PCR) Not Detected (NotDetected) 07/15/23 Unknown Coronavirus OC43 (PCR) Not Detected (NotDetected) 07/15/23 Unknown Coronavirus HKU1 (PCR) Not Detected (NotDetected) 07/15/23 Unknown Coronavirus 229E (PCR) Not Detected (NotDetected) 07/15/23 Unknown SARS-CoV-2 (PCR) Not Detected (NotDetected) 07/15/23 Unknown Coronavirus NL63 (PCR) Not Detected (NotDetected) 07/15/23 Unknown Human Metapneumovir PCR Not Detected (NotDetected) 07/15/23 Unknown Influenza Type A (PCR) Not Detected (NotDetected) 07/15/23 Unknown Influenza Type B (PCR) Not Detected (NotDetected) 07/15/23 Unknown M. pneumoniae (PCR) Not Detected (NotDetected) 07/15/23 Unknown Parainfluenza 1 (PCR) Not Detected (NotDetected) 07/15/23 Unknown Parainfluenza 2 (PCR) Not Detected (NotDetected) 07/15/23 Unknown Parainfluenza 3 (PCR) Not Detected (NotDetected) 07/15/23 Unknown Parainfluenza 4 (PCR) Not Detected (NotDetected) 07/15/23 Unknown RSV (PCR) Not Detected (NotDetected) 07/15/23 Unknown Entero/Rhino (PCR) Not Detected (NotDetected) 07/15/23 Unknown Impressions Chest X-Ray 07/15/23 13:36 SINGLE VIEW CHEST CLINICAL HISTORY: Dyspnea FINDINGS: An AP, portable, upright chest radiograph is compared to study dated 08/20/2022. Correlation is made with chest CT dated 09/16/2015. The examination is degraded by portable technique, large body habitus, and apical lordotic positioning. The cardiomediastinal silhouette is unremarkable. There is bibasilar atelectasis. The lungs and pleural spaces are otherwise clear. No pneumothorax is seen. The skeletal structures are osteopenic. The bony thorax is grossly intact. IMPRESSION: No active disease in the chest. ACT 112: Negative or not required by law. Electronically signed by: Donavon Littlejohn M.D. 07/15/2023 2:28 PM Medications Administered Home Medications Medication Instructions Recorded Confirmed Last Taken albuterol sulfate 5 mg/mL(0.5 %) 2.5 mg inhalation DIRECTED PRN 08/20/22 07/15/23 Unknown solution for nebulization Shortness Of Breath Or Wheezing albuterol sulfate 90 mcg/actuation 2 puff inhalation QID PRN sob 08/20/22 07/15/23 01/13/23 06:00 aerosol inhaler baclofen 10 mg tablet 10 mg PO TID PRN Muscle Pain 08/20/22 07/15/23 01/12/23 buspirone 10 mg tablet 20 mg PO AMHS 08/20/22 07/15/23 01/13/23 06:00 cholecalciferol (vitamin D3) 25 25 mcg PO QAM 08/20/22 07/15/23 01/12/23 mcg (1,000 unit) capsule (Vitamin D3) furosemide 20 mg tablet (Lasix) 20 mg PO DAILY PRN .SWELLING IN 08/20/22 07/15/23 01/12/23 LOWER LEGS isosorbide mononitrate 30 mg 30 mg PO QAM 08/20/22 07/15/23 01/13/23 06:00 tablet,extended release 24 hr lorazepam 0.5 mg tablet 0.5 mg PO Q8 PRN Anxiety 08/20/22 07/15/23 01/12/23 mirtazapine 30 mg tablet 30 mg PO HS 08/20/22 07/15/23 01/12/23 tramadol 100 mg tablet 100 mg PO Q8 PRN .MOD-SEVERE PAIN 08/20/22 07/15/23 01/12/23 warfarin 5 mg tablet 2.5 mg PO MOWEFR@1600 08/20/22 07/15/23 01/07/23 ferrous sulfate 325 mg (65 mg 325 mg PO QAM 01/12/23 07/15/23 01/12/23 iron) tablet acetaminophen 300 mg-codeine 30 mg 1 tab PO Q6 PRN Moderate Pain 07/15/23 07/15/23 Unknown tablet (Scale Score 5-6) fluticasone propionate 115 2 puff inhalation [facility] 07/15/23 07/15/23 Unknown mcg-salmeterol 21 mcg/actuation HFA inhaler (Advair HFA) metoprolol succinate 25 mg 25 mg PO QA 07/15/23 07/15/23 Unknown tablet,extended release 24 hr omeprazole 20 mg capsule,delayed 20 mg PO AMHS 07/15/23 07/15/23 Unknown release potassium chloride 10 mEq 10 meq PO [facility] 07/15/23 07/15/23 Unknown capsule,extended release solifenacin 10 mg tablet 10 mg PO QA 07/15/23 07/15/23 Unknown warfarin 5 mg tablet 5 mg PO SUTUTHSA 07/15/23 07/15/23 Unknown Active Medications Generic Name Dose Route Start Last Admin Trade Name Freq PRN Reason Stop Dose Admin Acetaminophen/Codeine Phosphate 1 tab 07/15/23 20:17 07/18/23 07:13 Acetaminophen W/Codeine #3 1 Tab PO 08/14/23 20:16 1 tab Q6H PRN Administration Moderate Pain (Scale Score 5-6) Albuterol 3 ml 07/15/23 19:00 07/18/23 10:45 Albut/Ipratrop 3mg/0.5mg Neb 3 Ml Vial NEB 08/14/23 18:59 3 ml Q4R MARY Administration Protocol Baclofen 10 mg 07/15/23 20:17 07/18/23 09:04 Baclofen 10 Mg Tab PO 08/14/23 20:16 10 mg TID PRN Administration Muscle Pain/spasm Budesonide 0.5 mg 07/16/23 08:20 07/18/23 07:34 Budesonide 0.5 Mg/2 Ml Vial (Pulmicort) [facility] 08/15/23 08:19 0.5 mg BIDR MARY Administration Buspirone HCl 20 mg 07/15/23 21:00 07/18/23 09:04 Buspirone 5 Mg Tab PO 08/14/23 20:59 20 mg AMHS MARY Administration Doxycycline Hyclate 100 mg 07/15/23 21:00 07/18/23 09:05 Doxycycline Hyclate 100 Mg Cap PO 07/22/23 20:59 100 mg BID MARY Administration Fluticasone/Vilanterol 1 puffs 07/16/23 09:00 07/18/23 09:05 Fluticasone/Vilanterol 100/25mcg 14 Puffs/Inhaler INH 08/15/23 08:59 1 puffs DAILY MARY Administration Protocol Formoterol Fumarate 20 mcg 07/16/23 09:00 07/18/23 07:34 Formoterol 20 Mcg/2 Ml Vial NEB 08/15/23 08:59 20 mcg BID MARY Administration Furosemide 40 mg 07/17/23 07:00 07/18/23 09:04 Furosemide 40 Mg/4 Ml Vial IV 08/16/23 06:59 40 mg [id number] MARY Administration Guaifenesin 1,200 mg 07/15/23 21:00 07/18/23 09:05 Guaifenesin 600 Mg Tabcr PO 08/14/23 20:59 1,200 mg Q12 MARY Administration Methylprednisolone 40 mg/ 0.64 mls @ 1.5 mls/min 07/15/23 21:00 07/18/23 09:04 Syringe IV 08/14/23 20:59 1.5 mls/min Q12 MARY Administration Ceftriaxone Sodium 2,000 mg/ 70 mls @ 100 mls/hr 07/16/23 14:00 07/17/23 15:40 Dextrose IV 07/23/23 13:59 Infused Q24H MARY Infusion Protocol Insulin Aspart 0 units 07/16/23 16:30 07/18/23 09:04 Insulin Aspart Per Unit Charge SC 08/15/23 16:29 5 units ACHS MARY Administration Isosorbide Mononitrate 30 mg 07/16/23 09:00 07/18/23 09:[address] Extended Rel 30 Mg Tabcr PO 08/15/23 08:59 30 mg QAM MARY Administration Lorazepam 0.5 mg 07/15/23 20:54 07/18/23 07:13 Lorazepam 0.5 Mg Tab PO 08/14/23 20:53 0.5 mg TID PRN Administration Anxiety Metoprolol Succinate 25 mg 07/16/23 09:00 07/18/23 09:05 Metoprolol Succ 25mg Ext Rel Tab PO 08/15/23 08:59 25 mg QAM MARY Administration Miconazole Nitrate 1 appln 07/16/23 21:00 07/18/23 09:06 Miconazole Nitrate 2% Cr 30 Gm Tube EXT 08/15/23 20:59 1 appln BID MARY Administration Miconazole Nitrate 1 appln 07/16/23 22:35 07/17/23 08:30 Miconazole Nitrate Powder 85 Gm EXT 08/15/23 22:34 1 appln PRN PRN Administration Affected Skin Folds Mirtazapine 30 mg 07/15/23 21:00 07/17/23 21:00 Mirtazapine Tab 15 Mg Tab PO 08/14/23 20:59 30 mg HS MARY Administration Oxybutynin Chloride 10 mg 07/16/23 09:00 07/18/23 09:05 Oxybutynin Chloride Xl 5 Mg Tabcr PO 08/15/23 08:59 10 mg QAM MARY Administration Pantoprazole Sodium 40 mg 07/15/23 21:00 07/18/23 09:05 Pantoprazole 40 Mg Tab PO 08/14/23 20:59 40 mg AMHS MARY Administration Protocol Tramadol HCl 100 mg 07/15/23 20:27 07/18/23 09:04 Tramadol Hcl 50 Mg Tablet PO 08/14/23 20:26 100 mg Q8H PRN Administration SEVERE PAIN Warfarin Sodium 5 mg 07/15/23 21:00 07/17/23 14:40 Warfarin Sod 5 Mg Tab PO 08/14/23 20:59 5 mg [id number]@1600 MARY Administration Warfarin Sodium 2.5 mg 07/16/23 16:00 07/16/23 14:49 Warfarin Sod 2.5 Mg Tab PO 08/15/23 15:59 2.5 mg MOWEFR@1600 MARY Administration PG Care Time/CCT Total # of Minutes Spent Total Time Spent with Patient: Total time spent is greater than 50% in coordination of care (as documented) at patient's floor/unit and/or counseling patient: Coding Level of Care Code 03784 SUB INP/OBS CARE 2/35MIN Diagnoses Congestive heart failure I50.9 Atrial fibrillation I48.91 Cerebrovascular disease I67.9 PAF (paroxysmal atrial fibrillation) I48.0 Anxiety and depression F41.9; F32.9 COPD (chronic obstructive pulmonary disease) J44.9 Anticoagulated on Coumadin Z79.01
--- NOTE | 2023-07-18 12:19 | Hospitalist Progress Note ---
Date of Service July 18, 2023 Assessment & Plan (1) COPD with exacerbation: (2) Atrial fibrillation: (3) History of stroke: (4) COPD (chronic obstructive pulmonary disease): (5) Chronic respiratory failure with hypoxia: (6) Congestive heart failure: (7) Anemia: Plan: COPD Exacerbation Acute on Chronic Hypoxic and hypercarbic respiratory Failure Acute on chronic HFpEF Patient is a 63-year-old female with history of COPD on 4 L of oxygen presents to the ED with shortness of breath. Chest x-ray on admission personally reviewed no definite infiltrate seen. No leukocytosis ABG personally reviewed; consistent with chronic respiratory acidosis. Respiratory viral panel negative. Continue on DuoNeb [id number], IV Solu-Medrol Inhaled budesonide and formoterol. Continue on IV Lasix 40 mg IV twice daily Strict input and output monitoring. Wean oxygen as tolerated to keep saturation above 88%. Pro-Chapincito negative Cutaneous candidiasis Cellulitis Significant redness in groin region. Also has tender nests/redness on left labia majora Started on miconazole nitrate. Given 1 dose of fluconazole 150 mg on ceftriaxone. Anemia -Globin stable around 9 hematocrit 33, no current need for transfusion, no overt bleeding, check guaiac as patient reports diarrhea and recently had supratherapeutic INR within the past week Anemia panel completed as an outpatient showing iron 17, TIBC 388, transferrin 4, B12 302, ferritin 9 - Indicative of iron deficiency anemia-patient reports that she has not picked this up [id number] and has been missing it for at least 2 weeks History of CVA, at least 9 strokes in the past - hx of PFO and hx of afib, on chronic anticoagulation with coumadin -Denies any focal weakness -PT/OT Sinus tachycardia Mild acute on Chronic diastolic CHF PFO Paroxysmal Afib -INR slightly subtherapeutic. - Follows with Dr. Pacheco as outpatient, reports per last note tachycardia likely physiologic and related to her underlying lung disease, was started on metoprolol succinate 25 mg daily, continue isosorbide mononitrate, warfarin, furosemide, potassium Diarrhea - Reports this is increased recently, she had been on antibiotics in March for UTI as well as 2 weeks ago completed course of Bactrim -C. difficile stool culture negative. Urinary Incontinence - place purwick -Urinalysis not suggestive of infection. Moderate protein malnutrition -Albumin is decreased at 3.3 -Granddaughter reports that she drinks primarily Pepsi at home, minimal water intake - BMI of 59.7 Depression and anxiety - Continue home antihypertensives -Allow Ativan as tolerates this at home DVT PPx: Coumadin FEN/GI: Heart healthy diet Access/lines: 2 peripheral IVs CODE STATUS: Full code Dispo: Patient from home with daughter as caregiver from Wednesday to Wednesday. Patient continues to be hospitalized given COPD exacerbation/HFpEF Time spent evaluating patient, direct bedside care, chart review, placing orders, interpretation of diagnostic studies, discussion with consultants, patient, and family members, as well as other required patient management activities is 60 minutes. Please note the above document was generated using voice recognition software. It may contain grammatical, syntax or spelling errors. Any formal questions or concerns about the content, text or information contained within the body of this dictation should be directly addressed to the provider for clarification Admission and Anticipated Discharge Date Admission Date: July 15, 2023 Subjective Patient reports anxiety and chest tightness today. Oxygen saturation is close to baseline. Requiring 4 L of oxygen. No overnight events. Review of Systems Review of Systems: All systems reviewed & are unremarkable except as noted in Subjective Physical Exam Physical Exam: Constitutional: Alert oriented x3; appears to be in mild distress. Morbidly obese. Respiratory: Bilateral diffuse wheeze heard. Cardiovascular: RRR, no murmur, no edema Vessels: no JVD or carotid bruit Chest: normal inspection of chest Abdomen: normal bowel sounds, soft, nontender, no hepatosplenomegaly Pelvic: Appears to have redness in groin area. Also tenderness and redness on left labia majora Musculoskeletal: no cyanosis or clubbing, extremities motor strength 5/5 Skin: no rashes, warm and dry normal turgor Neurologic: PERRL, EOMI, accommodation nl, no face palsy, no dysarthria CN's II- XI intact bilaterally and moves all extremities Psychiatric: A+Ox3, euthymic affect Results & Data Results & Data Vital Signs (Past 12 Hours) Vital Signs Temp Pulse Pulse Resp BP BP Pulse Ox 07/18/23 08:00 80 07/18/23 11:10 36.4 C L 85 22 108/68 90 07/18/23 10:45 88 18 92 07/18/23 08:37 86 18 90 07/18/23 07:20 36.6 C 82 22 121/76 96 07/18/23 07:37 79 18 91 07/18/23 03:00 36.7 C 80 20 114/72 93 07/18/23 02:52 80 18 93 O2 Del Method O2 Flow Rate 07/18/23 08:00 07/18/23 11:10 Nasal Cannula 4 07/18/23 10:45 Nasal Cannula 4 07/18/23 08:37 Nasal Cannula 4 07/18/23 07:20 Nasal Cannula 5 07/18/23 07:37 Nasal Cannula 4 07/18/23 03:00 Nasal Cannula 5 07/18/23 02:52 Nasal Cannula 5 Laboratory Results Laboratory Results WBC 9.99 K/ul (4.8-10.8) 07/18/23 05:24 RBC 3.42 M/uL (4.20-5.40) L 07/18/23 05:24 Hgb 9.2 g/dl (12.0-16.0) L 07/18/23 05:24 Hct 31.2 % (37.0-47.0) L 07/18/23 05:24 MCV 91.2 fL (80.0-100.0) 07/18/23 05:24 MCH 26.9 pg (25.0-34.0) 07/18/23 05:24 MCHC 29.5 g/dL (32.0-36.0) L 07/18/23 05:24 RDW Std Deviation 67.2 fL (36.4-46.3) H 07/18/23 05:24 RDW Coeff of Ursula 20.1 % (11.5-14.5) H 07/18/23 05:24 Plt Count 473 K/uL (130-400) H 07/18/23 05:24 MPV 9.1 fL (9.4-12.4) L 07/18/23 05:24 Immature Gran % (Auto) 0.9 % 07/18/23 05:24 Neut % (Auto) 85.9 % 07/18/23 05:24 Lymph % (Auto) 9.6 % 07/18/23 05:24 [place] % (Auto) 3.5 % 07/18/23 05:24 Eos % (Auto) 0.0 % 07/18/23 05:24 Baso % (Auto) 0.1 % 07/18/23 05:24 Neut # (Auto) 8.58 K/uL (1.40-6.50) H 07/18/23 05:24 Lymph # (Auto) 0.96 K/uL (1.20-3.40) L 07/18/23 05:24 [place] # (Auto) 0.35 K/uL (0.11-0.59) 07/18/23 05:24 Eos # (Auto) 0.00 K/uL (0.00-0.50) 07/18/23 05:24 Baso # (Auto) 0.01 K/uL (0.00-0.20) 07/18/23 05:24 Immature Gran # (Auto) 0.09 K/uL (0.01-0.20) 07/18/23 05:24 Absolute Nucleated RBC 0.04 K/uL (0.00-0.12) 07/18/23 05:24 Nucleated RBC % (auto) 0.4 % 07/18/23 05:24 Polychromasia 1+ 07/18/23 05:24 Anisocytosis Present 07/18/23 05:24 Stomatocytes 2+ 07/18/23 05:24 PT 19.0 Seconds (9.0-12.0) H 07/18/23 05:24 INR 1.8 (0.9-1.1) H 07/18/23 05:24 D-Dimer < 190 ug/L FEU (0-500) 07/15/23 13:45 VBG pH 7.33 (7.36-7.41) L 07/15/23 13:45 VBG pCO2 73 mmHg (38-50) H 07/15/23 13:45 VBG pO2 26 mmHg 07/15/23 13:45 VBG HCO3 39 mmol/L 07/15/23 13:45 VBG O2 Saturation < 60.0 % 07/15/23 13:45 VBG Base Excess 9.6 mEq/L 07/15/23 13:45 Sodium 139 mmol/L (136-145) 07/18/23 05:24 Potassium 3.9 mmol/L (3.5-5.1) 07/18/23 05:24 Chloride 98 mmol/L (98-107) 07/18/23 05:24 Carbon Dioxide 35 mmol/L (21-32) H 07/18/23 05:24 Anion Gap 6 (3-11) 07/18/23 05:24 BUN 33 mg/dl (6-23) H 07/18/23 05:24 Creatinine 0.81 mg/dl (0.6-1.2) 07/18/23 05:24 Est Cr Clr Drug Dosing 99.5 ml/min 07/18/23 05:24 Est GFR ( Amer) 89.6 ml/min 07/18/23 05:24 Est GFR (Non-Af Amer) 77.3 ml/min 07/18/23 05:24 BUN/Creatinine Ratio 40.7 (10-20) H 07/18/23 05:24 Glucose 187 mg/dl (70-99(Fasting)) H 07/18/23 05:24 POC Glucose 193 mg/dl (70-99) H 07/18/23 12:11 Calcium 8.4 mg/dl (8.6-10.3) L 07/18/23 05:24 Total Bilirubin 0.1 mg/dl (0.2-1.0) L 07/15/23 15:09 AST 12 U/L (13-39) L 07/15/23 15:09 ALT 9 U/L (7-52) 07/15/23 15:09 Alkaline Phosphatase 82 U/L (34-104) 07/15/23 15:09 Troponin I High Sens 4.8 pg/ml (0-14) 07/15/23 21:04 B-Natriuretic Peptide 204 pg/ml (0-100) H 07/15/23 15:09 Total Protein 6.2 gm/dl (6.0-8.3) 07/15/23 15:09 Albumin 3.3 gm/dl (3.4-5.0) L 07/15/23 15:09 Globulin 2.9 gm/dl (2.5-4.0) 07/15/23 15:09 Albumin/Globulin Ratio 1.1 (0.9-2) 07/15/23 15:09 Procalcitonin < 0.05 ng/ml (0-0.5) 07/17/23 11:09 Urine Color Yellow 07/16/23 02:18 Urine Appearance Clear (Clear) 07/16/23 02:18 Urine pH 6.5 (4.5-7.5) 07/16/23 02:18 Ur Specific [place] 1.015 (1.000-1.030) 07/16/23 02:18 Urine Protein Negative (Negative) 07/16/23 02:18 Urine Glucose (UA) Negative (Negative) 07/16/23 02:18 Urine Ketones Negative (Negative) 07/16/23 02:18 Urine Blood Negative (Negative) 07/16/23 02:18 Urine Nitrite Negative (Negative) 07/16/23 02:18 Urine Bilirubin Negative (Negative) 07/16/23 02:18 Urine Urobilinogen Negative (Negative) 07/16/23 02:18 Ur Leukocyte Esterase Negative (Negative) 07/16/23 02:18 Stl C. cayetanensis PCR Not Detected (NotDetected) 07/16/23 02:18 Stool Rotavirus A PCR Not Detected (NotDetected) 07/16/23 02:18 Stl Adenov F 40/41 PCR Not Detected (NotDetected) 07/16/23 02:18 Stool Astrovirus (PCR) Not Detected (NotDetected) 07/16/23 02:18 Stool Campylobacter PCR Not Detected (NotDetected) 07/16/23 02:18 Stl C. diff Tox B Gene Negative Cdiff Gene (Neg) 07/16/23 02:18 Stool Cryptosporidium PCR Not Detected (NotDetected) 07/16/23 02:18 Stl E.coli Shiga Tox PCR Not Detected (NotDetected) 07/16/23 02:18 Stl Enterotoxigenic E PCR Not Detected (NotDetected) 07/16/23 02:18 Stool EPEC (PCR) Not Detected (NotDetected) 07/16/23 02:18 Stool EAEC (PCR) Not Detected (NotDetected) 07/16/23 02:18 Stl E. histolytica PCR Not Detected (NotDetected) 07/16/23 02:18 Stool Giardia Lamblia PCR Not Detected (NotDetected) 07/16/23 02:18 Stool Salmonella PCR Not Detected (NotDetected) 07/16/23 02:18 Stool Sapovirus (PCR) Not Detected (NotDetected) 07/16/23 02:18 Stl P. shigelloides PCR Not Detected (NotDetected) 07/16/23 02:18 Stl Shigella/EIEC PCR Not Detected (NotDetected) 07/16/23 02:18 St Y.enterocolitica PCR Not Detected (NotDetected) 07/16/23 02:18 Stool Vibrio (PCR) Not Detected (NotDetected) 07/16/23 02:18 Stl Vibrio cholerae PCR Not Detected (NotDetected) 07/16/23 02:18 Stl Norovirus GI/GII PCR Not Detected (NotDetected) 07/16/23 02:18 Adenovirus (PCR) Not Detected (NotDetected) 07/15/23 Unknown B. pertussis DNA (PCR) Not Detected (NotDetected) 07/15/23 Unknown B.parapertussis DNA PCR Not Detected (NotDetected) 07/15/23 Unknown C. pneumoniae DNA (PCR) Not Detected (NotDetected) 07/15/23 Unknown Coronavirus OC43 (PCR) Not Detected (NotDetected) 07/15/23 Unknown Coronavirus HKU1 (PCR) Not Detected (NotDetected) 07/15/23 Unknown Coronavirus 229E (PCR) Not Detected (NotDetected) 07/15/23 Unknown SARS-CoV-2 (PCR) Not Detected (NotDetected) 07/15/23 Unknown Coronavirus NL63 (PCR) Not Detected (NotDetected) 07/15/23 Unknown Human Metapneumovir PCR Not Detected (NotDetected) 07/15/23 Unknown Influenza Type A (PCR) Not Detected (NotDetected) 07/15/23 Unknown Influenza Type B (PCR) Not Detected (NotDetected) 07/15/23 Unknown M. pneumoniae (PCR) Not Detected (NotDetected) 07/15/23 Unknown Parainfluenza 1 (PCR) Not Detected (NotDetected) 07/15/23 Unknown Parainfluenza 2 (PCR) Not Detected (NotDetected) 07/15/23 Unknown Parainfluenza 3 (PCR) Not Detected (NotDetected) 07/15/23 Unknown Parainfluenza 4 (PCR) Not Detected (NotDetected) 07/15/23 Unknown RSV (PCR) Not Detected (NotDetected) 07/15/23 Unknown Entero/Rhino (PCR) Not Detected (NotDetected) 07/15/23 Unknown Impressions Chest X-Ray 07/15/23 13:36 SINGLE VIEW CHEST CLINICAL HISTORY: Dyspnea FINDINGS: An AP, portable, upright chest radiograph is compared to study dated 08/20/2022. Correlation is made with chest CT dated 09/16/2015. The examination is degraded by portable technique, large body habitus, and apical lordotic positioning. The cardiomediastinal silhouette is unremarkable. There is bibasilar atelectasis. The lungs and pleural spaces are otherwise clear. No pneumothorax is seen. The skeletal structures are osteopenic. The bony thorax is grossly intact. IMPRESSION: No active disease in the chest. ACT 112: Negative or not required by law. Electronically signed by: Donavon Littlejohn M.D. 07/15/2023 2:28 PM
[2023-07-18] MEDS: cefTRIAXone SODIUM 2,000 MG in DEXTROSE 5% 50 ML IV SCH (15:00)
[2023-07-18] MEDS: WARFARIN SOD 5 MG TAB PO SCH (15:01)
[2023-07-18] MEDS: MIRTAZAPINE TAB 15 MG TAB PO SCH (21:42)
[2023-07-19] MEDS: ALBUT/IPRATROP 3MG/0.5MG NEB 3 ML VIAL NEB SCH ×6 (02:09→22:22)
[2023-07-19] MEDS: LORazepam 0.5 MG TAB PO PRN ×3 (07:02→22:34)
[2023-07-19] MEDS: BUDESONIDE 0.5 MG/2 ML VIAL (PULMICORT) NEB SCH ×2 (07:31→19:30)
[2023-07-19] MEDS: FORMOTEROL 20 MCG/2 ML VIAL NEB SCH ×2 (07:31→19:30)
[2023-07-19 08:03] LABS: Hematocrit (blood only) 32.2 % (37.0-47.0); Hemoglobin 9.8 g/dl (12.0-16.0); Immature Granulocytes # (auto) 0.12 K/uL (0.01-0.20); Immature Granulocytes % (auto) 1.4 %; Lymphocytes # (auto) 0.89 K/uL (1.20-3.40); Lymphocytes % (auto) 10.6 %; Mean Corpuscular Hemoglobin 27.2 pg (25.0-34.0); Mean Corpuscular Hgb Conc 30.4 g/dL (32.0-36.0); Mean Corpuscular Volume 89.4 fL (80.0-100.0); Monocytes # (auto) 0.42 K/uL (0.11-0.59); Neutrophils # (auto) 6.94 K/uL (1.40-6.50); Nucleated RBC # (auto) 0.06 K/uL (0.00-0.12); Nucleated RBC % (auto) 0.7 %; Platelet Count 492 K/uL (130-400); RDW Coefficient of Variation 19.8 % (11.5-14.5); RDW Standard Deviation 65.5 fL (36.4-46.3); White Blood Count 8.37 K/ul (4.8-10.8)
[2023-07-19 08:09] LABS: INR 2.2 (0.9-1.1)
[2023-07-19 08:17] LABS: BUN Creatinine Ratio 38.6 (10-20); Calcium 8.5 mg/dl (8.6-10.3); Creatinine Clr Calc Pharmacy 97.5 ml/min
[2023-07-19] MEDS: traMADol HCL 50 MG TABLET PO PRN ×2 (09:16→17:18)
[2023-07-19] MEDS: BACLOFEN 10 MG TAB PO PRN ×2 (09:16→23:06)
[2023-07-19] MEDS: INSULIN ASPART PER UNIT CHARGE SC SCH ×4 (09:16→22:29)
[2023-07-19] MEDS: OXYBUTYNIN CHLORIDE XL 5 MG TABCR PO SCH (09:17)
[2023-07-19] MEDS: busPIRone 5 MG TAB PO SCH ×2 (09:17→22:27)
[2023-07-19] MEDS: ISOSORBIDE MONO EXTENDED REL 30 MG TABCR PO SCH (09:17)
[2023-07-19] MEDS: FLUTICASONE/VILANTEROL 100/25MCG 14 PUFFS/INHALER INH SCH (09:17)
[2023-07-19] MEDS: METOPROLOL SUCC 25MG EXT REL TAB PO SCH (09:17)
[2023-07-19] MEDS: guaiFENesin 600 MG TABCR PO SCH ×2 (09:17→22:27)
[2023-07-19] MEDS: methylPREDNISolone 40 MG in SYRINGE 0 ML IV SCH (09:17)
[2023-07-19] MEDS: DOXYCYCLINE HYCLATE 100 MG CAP PO SCH (09:17)
[2023-07-19] MEDS: FUROSEMIDE 40 MG/4 ML VIAL IV SCH ×2 (09:18→14:48)
[2023-07-19] MEDS: PANTOprazole 40 MG TAB PO SCH ×2 (09:18→22:28)
[2023-07-19] MEDS: MICONAZOLE NITRATE 2% CR 30 GM TUBE EXT SCH ×2 (09:19→23:02)
[2023-07-19] MEDS ORDERED: MAGNESIUM HYDROXIDE SUSP 30 ML UDC PO ONE (09:36)
[2023-07-19] MEDS: POLYETHYLENE (MIRALAX) 17 GM PACK PO SCH (10:15)
--- NOTE | 2023-07-19 12:15 | Pulmonology Progress Note ---
Date of Service July 19, 2023 Assessment & Plan (1) Chronic respiratory failure: Respiratory failure complication: hypoxia Qualified Code(s): J96.11 - Chronic respiratory failure with hypoxia (2) COPD with exacerbation: (3) Hypoxia: Plan Impression: 63-year-old female with morbid obesity and probable obesity hypoventilation syndrome with obstructive lung disease admitted with exacerba tion. She is not really improved after treatment to this point with inhaled bronchodilators. Recommendations: 1. Obstructive lung disease: We will discontinue Breo as the patient is already on nebulized Perforomist and budesonide. She is also receiving prednisone at 40 mg a day. 2. Hypercarbic respiratory failure: This is likely exacerbating her hypoxemia. Recommended she retry nocturnal positive airway pressure. The patient states she cannot tolerate it. There are no acceptable alternatives. 3. The patient was advised that she would do better if she can get out of bed and at least sit up in the chair. Lying in bed already on a recliner perpetually will result in mechanical disadvantage for her respiratory system. Unclear whether or not the patient can or will be compliant with this recommendation. 4. Ultimately the patient would require significant weight loss as a solution to her obesity hypoventilation syndrome. Would be very reluctant to use narcotics, benzodiazepines, or other respiratory suppressant medications given the patient's morbid obesity, hypercarbia, and propensity for hypercarbic respiratory failure. 5. The patient's chest x-ray shows no evidence of any acute infiltrative process. Her procalcitonin was negative. Her white count is normal. She is been afebrile. Antibiotics will be discontinued. We will continue to follow with you. Feel free to contact us with questions or concerns Admission and Anticipated Discharge Date Admission Date: July 15, 2023 Subjective Patient seen and examined. EMR reviewed. Discussed with outgoing single stayer operator. The patient reports that her breathing is about the same as when she came into the hospital. She still feels tightness in her chest. She states all the inhalers make her feel very anxious. She has been tried on noninvasive positive pressure ventilation in the past but apparently was poorly tolerant of it due to claustrophobia issues. She spends most of the time in bed or on a recliner at home. She denies fevers chills night sweats or other constitutional symptoms. She is not coughing or expectorating significant phlegm. Review of Systems Review of Systems: All systems reviewed & are unremarkable except as noted in Subjective Physical Exam Constitutional: WD/WN, vitals as above + morbidly obese; no acute distress Neck: trachea midline, no thyromegaly Respiratory: no respiratory distress, no labored breathing, no cough and not tachypneic Auscultation: + wheezes Cardiovascular: RRR, no murmur, no edema Gastrointestinal (Abdomen): normal bowel sounds, soft, nontender, no hepatosplenomegaly Musculoskeletal: Extremities: extremities normal to inspection Skin: no rashes, warm and dry Neurologic: Nonfocal exam Lymphatic: no cervical lymphadenopathy Results & Data Results & Data Vital Signs (Past 12 Hours) Vital Signs Temp Pulse Pulse Resp BP BP Pulse Ox 07/19/23 11:19 36.4 C L 72 16 124/68 94 07/19/23 11:10 84 24 90 07/19/23 08:00 73 07/19/23 07:10 36.4 C L 76 20 134/80 92 07/19/23 07:31 73 22 91 07/19/23 03:27 36.4 C L 76 16 117/72 93 07/19/23 00:15 75 O2 Del Method O2 Flow Rate 07/19/23 11:19 Nasal Cannula 5 07/19/23 11:10 Nasal Cannula 5 07/19/23 08:00 07/19/23 07:10 Nasal Cannula 4 07/19/23 07:31 Nasal Cannula 4 07/19/23 03:27 Nasal Cannula 4 07/19/23 00:15 Laboratory Results 07/19/23 06:58 07/19/23 06:58 PG Care Time/CCT Total # of Minutes Spent Total Time Spent with Patient: Total time spent is greater than 50% in coordination of care (as documented) at patient's floor/unit and/or counseling patient: Coding Level of Care Code 28378 SUB INP/OBS CARE 3/50MIN Diagnoses Chronic respiratory failure J96.11 Respiratory failure complication: hypoxia COPD with exacerbation J44.1 Hypoxia R09.02
--- NOTE | 2023-07-19 13:02 | Hospitalist Progress Note ---
Date of Service July 19, 2023 Assessment & Plan (1) COPD with exacerbation: (2) Atrial fibrillation: (3) History of stroke: (4) COPD (chronic obstructive pulmonary disease): (5) Chronic respiratory failure with hypoxia: (6) Congestive heart failure: (7) Anemia: Plan: COPD Exacerbation Acute on Chronic Hypoxic and hypercarbic respiratory Failure Acute on chronic HFpEF Patient is a 63-year-old female with history of COPD on 4 L of oxygen presents to the ED with shortness of breath. Chest x-ray on admission personally reviewed no definite infiltrate seen. No leukocytosis ABG personally reviewed; consistent with chronic respiratory acidosis. Respiratory viral panel negative. Pro-[place] negative EKG personally reviewed; normal sinus rhythm; no ST or T wave changes. High sensitivity troponin negative Continue on DuoNeb [id number], Will change IV Solu-Medrol to oral prednisone 40 mg. We will do slow tapering. Inhaled budesonide and formoterol. Continue on IV Lasix 40 mg IV twice daily Strict input and output monitoring. Wean oxygen as tolerated to keep saturation above 88%. Cutaneous candidiasis Cellulitis Significant redness in groin region. Also has tender nests/redness on left labia majora Started on miconazole nitrate. Given 1 dose of fluconazole 150 mg Received 3 days of ceftriaxone Anemia -Hemoglobin stable around 8-10. - Indicative of iron deficiency anemia-patient reports that she has not picked this up [id number] and has been missing it for at least 2 weeks History of CVA, at least 9 strokes in the past - hx of PFO and hx of afib, on chronic anticoagulation with coumadin -Denies any focal weakness -PT/OT Sinus tachycardia Mild acute on Chronic diastolic CHF PFO Paroxysmal Afib -INR therapeutic today - Follows with Dr. Pacheco as outpatient, reports per last note tachycardia likely physiologic and related to her underlying lung disease, was started on metoprolol succinate 25 mg daily, continue isosorbide mononitrate, warfarin, furosemide, potassium Diarrhea - Reports this is increased recently, she had been on antibiotics in March for UTI as well as 2 weeks ago completed course of Bactrim -C. difficile stool culture negative. No longer having diarrhea Urinary Incontinence - place purwick -Urinalysis not suggestive of infection. Moderate protein malnutrition -Albumin is decreased at 3.3 -Granddaughter reports that she drinks primarily Pepsi at home, minimal water intake - BMI of 59.7 Depression and anxiety - Continue home antihypertensives -Allow Ativan as tolerates this at home DVT PPx: Coumadin FEN/GI: Heart healthy diet Access/lines: 2 peripheral IVs CODE STATUS: Full code Dispo: Patient from home with daughter as caregiver from Wednesday to Wednesday. Patient continues to be hospitalized given COPD exacerbation/HFpEF Time spent evaluating patient, direct bedside care, chart review, placing orders, interpretation of diagnostic studies, discussion with consultants, patient, and family members, as well as other required patient management activities is 60 minutes. Please note the above document was generated using voice recognition software. It may contain grammatical, syntax or spelling errors. Any formal questions or concerns about the content, text or information contained within the body of this dictation should be directly addressed to the provider for clarification Admission and Anticipated Discharge Date Admission Date: July 15, 2023 Subjective Patient seen and examined at bedside. She is lying on the bed; reports chest discomfort. EKG obtained; personally reviewed. Normal sinus rhythm. Review of Systems Review of Systems: All systems reviewed & are unremarkable except as noted in Subjective Physical Exam Physical Exam: Constitutional: Alert oriented x3; appears to be in mild distress. Morbidly obese. Respiratory: Improvement in the bilateral wheeze. Occasional wheeze present. Cardiovascular: RRR, no murmur, no edema Vessels: no JVD or carotid bruit Chest: normal inspection of chest Abdomen: normal bowel sounds, soft, nontender, no hepatosplenomegaly Pelvic: Appears to have redness in groin area. Also tenderness and redness on left labia majora Musculoskeletal: no cyanosis or clubbing, extremities motor strength 5/5 Skin: no rashes, warm and dry normal turgor Neurologic: PERRL, EOMI, accommodation nl, no face palsy, no dysarthria CN's II- XI intact bilaterally and moves all extremities Psychiatric: A+Ox3, euthymic affect Results & Data Results & Data Vital Signs (Past 12 Hours) Vital Signs Temp Pulse Pulse Resp BP BP Pulse Ox 07/19/23 11:19 36.4 C L 72 16 124/68 94 07/19/23 11:10 84 24 90 07/19/23 08:00 73 07/19/23 07:10 36.4 C L 76 20 134/80 92 07/19/23 07:31 73 22 91 07/19/23 03:27 36.4 C L 76 16 117/72 93 O2 Del Method O2 Flow Rate 07/19/23 11:19 Nasal Cannula 5 07/19/23 11:10 Nasal Cannula 5 07/19/23 08:00 07/19/23 07:10 Nasal Cannula 4 07/19/23 07:31 Nasal Cannula 4 07/19/23 03:27 Nasal Cannula 4 Laboratory Results Laboratory Results WBC 8.37 K/ul (4.8-10.8) 07/19/23 06:58 RBC 3.60 M/uL (4.20-5.40) L 07/19/23 06:58 Hgb 9.8 g/dl (12.0-16.0) L 07/19/23 06:58 Hct 32.2 % (37.0-47.0) L 07/19/23 06:58 MCV 89.4 fL (80.0-100.0) 07/19/23 06:58 MCH 27.2 pg (25.0-34.0) 07/19/23 06:58 MCHC 30.4 g/dL (32.0-36.0) L 07/19/23 06:58 RDW Std Deviation 65.5 fL (36.4-46.3) H 07/19/23 06:58 RDW Coeff of Ursula 19.8 % (11.5-14.5) H 07/19/23 06:58 Plt Count 492 K/uL (130-400) H 07/19/23 06:58 MPV 9.0 fL (9.4-12.4) L 07/19/23 06:58 Immature Gran % (Auto) 1.4 % 07/19/23 06:58 Neut % (Auto) 83.0 % 07/19/23 06:58 Lymph % (Auto) 10.6 % 07/19/23 06:58 [place] % (Auto) 5.0 % 07/19/23 06:58 Eos % (Auto) 0.0 % 07/19/23 06:58 Baso % (Auto) 0.0 % 07/19/23 06:58 Neut # (Auto) 6.94 K/uL (1.40-6.50) H 07/19/23 06:58 Lymph # (Auto) 0.89 K/uL (1.20-3.40) L 07/19/23 06:58 [place] # (Auto) 0.42 K/uL (0.11-0.59) 07/19/23 06:58 Eos # (Auto) 0.00 K/uL (0.00-0.50) 07/19/23 06:58 Baso # (Auto) 0.00 K/uL (0.00-0.20) 07/19/23 06:58 Immature Gran # (Auto) 0.12 K/uL (0.01-0.20) 07/19/23 06:58 Absolute Nucleated RBC 0.06 K/uL (0.00-0.12) 07/19/23 06:58 Nucleated RBC % (auto) 0.7 % 07/19/23 06:58 Polychromasia 1+ 07/18/23 05:24 Anisocytosis Present 07/18/23 05:24 Stomatocytes 2+ 07/18/23 05:24 PT 23.0 Seconds (9.0-12.0) H 07/19/23 06:58 INR 2.2 (0.9-1.1) H 07/19/23 06:58 D-Dimer < 190 ug/L FEU (0-500) 07/15/23 13:45 VBG pH 7.33 (7.36-7.41) L 07/15/23 13:45 VBG pCO2 73 mmHg (38-50) H 07/15/23 13:45 VBG pO2 26 mmHg 07/15/23 13:45 VBG HCO3 39 mmol/L 07/15/23 13:45 VBG O2 Saturation < 60.0 % 07/15/23 13:45 VBG Base Excess 9.6 mEq/L 07/15/23 13:45 Sodium 140 mmol/L (136-145) 07/19/23 06:58 Potassium 4.0 mmol/L (3.5-5.1) 07/19/23 06:58 Chloride 97 mmol/L (98-107) L 07/19/23 06:58 Carbon Dioxide 37 mmol/L (21-32) H 07/19/23 06:58 Anion Gap 6 (3-11) 07/19/23 06:58 BUN 32 mg/dl (6-23) H 07/19/23 06:58 Creatinine 0.83 mg/dl (0.6-1.2) 07/19/23 06:58 Est Cr Clr Drug Dosing 97.5 ml/min 07/19/23 06:58 Est GFR ( Amer) 87.0 ml/min 07/19/23 06:58 Est GFR (Non-Af Amer) 75.0 ml/min 07/19/23 06:58 BUN/Creatinine Ratio 38.6 (10-20) H 07/19/23 06:58 Glucose 170 mg/dl (70-99(Fasting)) H 07/19/23 06:58 POC Glucose 197 mg/dl (70-99) H 07/19/23 11:46 Calcium 8.5 mg/dl (8.6-10.3) L 07/19/23 06:58 Total Bilirubin 0.1 mg/dl (0.2-1.0) L 07/15/23 15:09 AST 12 U/L (13-39) L 07/15/23 15:09 ALT 9 U/L (7-52) 07/15/23 15:09 Alkaline Phosphatase 82 U/L (34-104) 07/15/23 15:09 Troponin I High Sens 6.7 pg/ml (0-14) 07/18/23 13:00 B-Natriuretic Peptide 204 pg/ml (0-100) H 07/15/23 15:09 Total Protein 6.2 gm/dl (6.0-8.3) 07/15/23 15:09 Albumin 3.3 gm/dl (3.4-5.0) L 07/15/23 15:09 Globulin 2.9 gm/dl (2.5-4.0) 07/15/23 15:09 Albumin/Globulin Ratio 1.1 (0.9-2) 07/15/23 15:09 Procalcitonin < 0.05 ng/ml (0-0.5) 07/17/23 11:09 Urine Color Yellow 07/16/23 02:18 Urine Appearance Clear (Clear) 07/16/23 02:18 Urine pH 6.5 (4.5-7.5) 07/16/23 02:18 Ur Specific [place] 1.015 (1.000-1.030) 07/16/23 02:18 Urine Protein Negative (Negative) 07/16/23 02:18 Urine Glucose (UA) Negative (Negative) 07/16/23 02:18 Urine Ketones Negative (Negative) 07/16/23 02:18 Urine Blood Negative (Negative) 07/16/23 02:18 Urine Nitrite Negative (Negative) 07/16/23 02:18 Urine Bilirubin Negative (Negative) 07/16/23 02:18 Urine Urobilinogen Negative (Negative) 07/16/23 02:18 Ur Leukocyte Esterase Negative (Negative) 07/16/23 02:18 Stl C. cayetanensis PCR Not Detected (NotDetected) 07/16/23 02:18 Stool Rotavirus A PCR Not Detected (NotDetected) 07/16/23 02:18 Stl Adenov F 40/41 PCR Not Detected (NotDetected) 07/16/23 02:18 Stool Astrovirus (PCR) Not Detected (NotDetected) 07/16/23 02:18 Stool Campylobacter PCR Not Detected (NotDetected) 07/16/23 02:18 Stl C. diff Tox B Gene Negative Cdiff Gene (Neg) 07/16/23 02:18 Stool Cryptosporidium PCR Not Detected (NotDetected) 07/16/23 02:18 Stl E.coli Shiga Tox PCR Not Detected (NotDetected) 07/16/23 02:18 Stl Enterotoxigenic E PCR Not Detected (NotDetected) 07/16/23 02:18 Stool EPEC (PCR) Not Detected (NotDetected) 07/16/23 02:18 Stool EAEC (PCR) Not Detected (NotDetected) 07/16/23 02:18 Stl E. histolytica PCR Not Detected (NotDetected) 07/16/23 02:18 Stool Giardia Lamblia PCR Not Detected (NotDetected) 07/16/23 02:18 Stool Salmonella PCR Not Detected (NotDetected) 07/16/23 02:18 Stool Sapovirus (PCR) Not Detected (NotDetected) 07/16/23 02:18 Stl P. shigelloides PCR Not Detected (NotDetected) 07/16/23 02:18 Stl Shigella/EIEC PCR Not Detected (NotDetected) 07/16/23 02:18 St Y.enterocolitica PCR Not Detected (NotDetected) 07/16/23 02:18 Stool Vibrio (PCR) Not Detected (NotDetected) 07/16/23 02:18 Stl Vibrio cholerae PCR Not Detected (NotDetected) 07/16/23 02:18 Stl Norovirus GI/GII PCR Not Detected (NotDetected) 07/16/23 02:18 Adenovirus (PCR) Not Detected (NotDetected) 07/15/23 Unknown B. pertussis DNA (PCR) Not Detected (NotDetected) 07/15/23 Unknown B.parapertussis DNA PCR Not Detected (NotDetected) 07/15/23 Unknown C. pneumoniae DNA (PCR) Not Detected (NotDetected) 07/15/23 Unknown Coronavirus OC43 (PCR) Not Detected (NotDetected) 07/15/23 Unknown Coronavirus HKU1 (PCR) Not Detected (NotDetected) 07/15/23 Unknown Coronavirus 229E (PCR) Not Detected (NotDetected) 07/15/23 Unknown SARS-CoV-2 (PCR) Not Detected (NotDetected) 07/15/23 Unknown Coronavirus NL63 (PCR) Not Detected (NotDetected) 07/15/23 Unknown Human Metapneumovir PCR Not Detected (NotDetected) 07/15/23 Unknown Influenza Type A (PCR) Not Detected (NotDetected) 07/15/23 Unknown Influenza Type B (PCR) Not Detected (NotDetected) 07/15/23 Unknown M. pneumoniae (PCR) Not Detected (NotDetected) 07/15/23 Unknown Parainfluenza 1 (PCR) Not Detected (NotDetected) 07/15/23 Unknown Parainfluenza 2 (PCR) Not Detected (NotDetected) 07/15/23 Unknown Parainfluenza 3 (PCR) Not Detected (NotDetected) 07/15/23 Unknown Parainfluenza 4 (PCR) Not Detected (NotDetected) 07/15/23 Unknown RSV (PCR) Not Detected (NotDetected) 07/15/23 Unknown Entero/Rhino (PCR) Not Detected (NotDetected) 07/15/23 Unknown Impressions Chest X-Ray 07/15/23 13:36 SINGLE VIEW CHEST CLINICAL HISTORY: Dyspnea FINDINGS: An AP, portable, upright chest radiograph is compared to study dated 08/20/2022. Correlation is made with chest CT dated 09/16/2015. The examination is degraded by portable technique, large body habitus, and apical lordotic positioning. The cardiomediastinal silhouette is unremarkable. There is bibasilar atelectasis. The lungs and pleural spaces are otherwise clear. No pneumothorax is seen. The skeletal structures are osteopenic. The bony thorax is grossly intact. IMPRESSION: No active disease in the chest. ACT 112: Negative or not required by law. Electronically signed by: Donavon Littlejohn M.D. 07/15/2023 2:28 PM
[2023-07-19] MEDS: ACETAMINOPHEN W/CODEINE #3 1 TAB PO PRN ×2 (14:48→21:15)
[2023-07-19] MEDS: WARFARIN SOD 2.5 MG TAB PO SCH (14:49)
--- NOTE | 2023-07-19 15:00 | Electrocardiogram Report ---
Test Reason : Blood Pressure : / mmHG Vent. Rate : 089 BPM Atrial Rate : 089 BPM P-R Int : 136 ms QRS Dur : 082 ms QT Int : 360 ms P-R-T Axes : 024 008 033 degrees QTc Int : 438 ms Normal sinus rhythm Normal ECG When compared with ECG of 22-AUG-2022 10:25, No significant change was found Confirmed by Live Warren ([id number]) on 07/19/2023 2:59:58 PM Referred By: REFERRED SELF Confirmed By:Live Warren
[2023-07-19] MEDS: MIRTAZAPINE TAB 15 MG TAB PO SCH (22:29)
--- NOTE | 2023-07-19 22:49 | Electrocardiogram Report ---
Test Reason : Blood Pressure : / mmHG Vent. Rate : 084 BPM Atrial Rate : 084 BPM P-R Int : 136 ms QRS Dur : 092 ms QT Int : 376 ms P-R-T Axes : 043 013 040 degrees QTc Int : 444 ms Normal sinus rhythm Normal ECG When compared with ECG of 15-JUL-2023 13:29, No significant change was found Confirmed by Live Warren ([id number]) on 07/19/2023 10:49:11 PM Referred By: REFERRED SELF Confirmed By:Live Warren
[2023-07-20] MEDS: ALBUT/IPRATROP 3MG/0.5MG NEB 3 ML VIAL NEB SCH ×7 (02:43→22:26)
[2023-07-20] MEDS: BUDESONIDE 0.5 MG/2 ML VIAL (PULMICORT) NEB SCH ×2 (07:10→19:02)
[2023-07-20] MEDS: FORMOTEROL 20 MCG/2 ML VIAL NEB SCH ×2 (07:10→19:02)
[2023-07-20 07:11] LABS: Eosinophils # (auto) 0.01 K/uL (0.00-0.50); Eosinophils % (auto) 0.1 %; Hematocrit (blood only) 33.5 % (37.0-47.0); Hemoglobin 10.2 g/dl (12.0-16.0); Immature Granulocytes # (auto) 0.08 K/uL (0.01-0.20); Immature Granulocytes % (auto) 0.8 %; Lymphocytes # (auto) 1.71 K/uL (1.20-3.40); Lymphocytes % (auto) 18.1 %; Mean Corpuscular Hemoglobin 27.1 pg (25.0-34.0); Mean Corpuscular Hgb Conc 30.4 g/dL (32.0-36.0); Mean Corpuscular Volume 88.9 fL (80.0-100.0); Mean Platelet Volume 9.1 fL (9.4-12.4); Monocytes # (auto) 1.08 K/uL (0.11-0.59); Monocytes % (auto) 11.4 %; Neutrophils # (auto) 6.57 K/uL (1.40-6.50); Neutrophils % (auto) 69.6 %; Nucleated RBC # (auto) 0.07 K/uL (0.00-0.12); Nucleated RBC % (auto) 0.7 %; Platelet Count 483 K/uL (130-400); RDW Coefficient of Variation 19.5 % (11.5-14.5); Red Blood Count 3.77 M/uL (4.20-5.40); White Blood Count 9.45 K/ul (4.8-10.8)
[2023-07-20 07:43] LABS: Albumin Globulin Ratio 1.2 (0.9-2); Albumin Level 3.3 gm/dl (3.4-5.0); BUN Creatinine Ratio 45.9 (10-20); Bilirubin,Total 0.2 mg/dl (0.2-1.0); Calcium 8.3 mg/dl (8.6-10.3); Creatinine Clr Calc Pharmacy 109.2 ml/min; Est GFR (African American) 99.9 ml/min; Est GFR (Non-African American) 86.2 ml/min; Globulin 2.7 gm/dl (2.5-4.0); INR 2.2 (0.9-1.1); Potassium 3.6 mmol/L (3.5-5.1); Prothrombin Time 23.3 Seconds (9.0-12.0)
--- NOTE | 2023-07-20 07:46 | Pulmonology Progress Note ---
Date of Service July 20, 2023 Assessment & Plan (1) Chronic respiratory failure: Respiratory failure complication: hypoxia Qualified Code(s): J96.11 - Chronic respiratory failure with hypoxia (2) COPD with exacerbation: (3) Hypoxia: Plan Impression: 63-year-old female with morbid obesity and probable obesity hypoventilation syndrome with obstructive lung disease admitted with exacerba tion. She is not really improved after treatment to this point with inhaled bronchodilators. Recommendations: 1. Obstructive lung disease: Continue nebulized Perforomist and budesonide. She is also receiving prednisone at 40 mg a day. Add Singulair 10 mg daily 2. Hypercarbic respiratory failure: This is likely exacerbating her hypoxemia. Recommended she retry nocturnal positive airway pressure. The patient states she cannot tolerate it. There are no acceptable alternatives. She is not a candidate for tracheostomy 3. Out of bed to chair is much as possible. If the patient remains in bed, she should try and keep her head elevated is much as possible. 4. Ultimately the patient would require significant weight loss as a solution to her obesity hypoventilation syndrome. Would be very reluctant to use narcotics, benzodiazepines, or other respiratory suppressant medications given the patient's morbid obesity, hypercarbia, and propensity for hypercarbic respiratory failure. We will continue to follow with you. Feel free to contact us with questions or concerns Admission and Anticipated Discharge Date Admission Date: July 15, 2023 Subjective Patient seen and examined. EMR reviewed. The patient states that she slept okay. She stood yesterday with therapy. She spent the majority of the time in bed. She continues to complain of some chest tightness and intermittent wheezing. She denies fevers chills night sweats or other constitutional symptoms. No chest pain or palpitations. Review of Systems Review of Systems: All systems reviewed & are unremarkable except as noted in Subjective Physical Exam Constitutional: WD/WN, vitals as above + morbidly obese; no acute distress Neck: trachea midline, no thyromegaly Respiratory: no respiratory distress, no labored breathing, no cough and not tachypneic Auscultation: + wheezes Cardiovascular: RRR, no murmur, no edema Gastrointestinal (Abdomen): normal bowel sounds, soft, nontender, no hepatosplenomegaly Musculoskeletal: Extremities: extremities normal to inspection Skin: no rashes, warm and dry Lymphatic: no cervical lymphadenopathy Results & Data Results & Data Vital Signs (Past 12 Hours) Vital Signs Temp Pulse Pulse Resp BP Pulse Ox O2 Del Method 07/20/23 07:11 78 18 98 Nasal Cannula 07/20/23 03:51 36.6 C 76 20 114/68 94 Nasal Cannula 07/20/23 02:11 Nasal Cannula 07/19/23 22:00 72 07/19/23 22:22 74 18 94 Nasal Cannula 07/19/23 20:11 36.5 C 78 20 127/68 92 Nasal Cannula O2 Flow Rate 07/20/23 07:11 5 07/20/23 03:51 4 07/20/23 02:11 5 07/19/23 22:00 07/19/23 22:22 5 07/19/23 20:11 4 Laboratory Results 07/20/23 06:15 07/20/23 06:15 Diagnostic Findings No new imaging PG Care Time/CCT Total # of Minutes Spent Total Time Spent with Patient: Total time spent is greater than 50% in coordination of care (as documented) at patient's floor/unit and/or counseling patient: Coding Level of Care Code 91926 SUB INP/OBS CARE 2/35MIN Diagnoses Chronic respiratory failure J96.11 Respiratory failure complication: hypoxia COPD with exacerbation J44.1 Hypoxia R09.02
[2023-07-20] MEDS: FUROSEMIDE 40 MG/4 ML VIAL IV SCH (08:12)
[2023-07-20] MEDS: ACETAMINOPHEN W/CODEINE #3 1 TAB PO PRN ×2 (08:12→14:02)
[2023-07-20] MEDS: LORazepam 0.5 MG TAB PO PRN ×2 (08:25→19:35)
[2023-07-20] MEDS: INSULIN ASPART PER UNIT CHARGE SC SCH ×4 (09:06→22:05)
[2023-07-20] MEDS: predniSONE 20 MG TAB PO SCH (09:10)
[2023-07-20] MEDS: PANTOprazole 40 MG TAB PO SCH ×2 (09:11→19:24)
[2023-07-20] MEDS: OXYBUTYNIN CHLORIDE XL 5 MG TABCR PO SCH (09:11)
[2023-07-20] MEDS: ISOSORBIDE MONO EXTENDED REL 30 MG TABCR PO SCH (09:11)
[2023-07-20] MEDS: POLYETHYLENE (MIRALAX) 17 GM PACK PO SCH (09:11)
[2023-07-20] MEDS: METOPROLOL SUCC 25MG EXT REL TAB PO SCH (09:11)
[2023-07-20] MEDS: busPIRone 5 MG TAB PO SCH ×2 (09:12→19:26)
[2023-07-20] MEDS: guaiFENesin 600 MG TABCR PO SCH ×2 (09:12→19:25)
[2023-07-20] MEDS: traMADol HCL 50 MG TABLET PO PRN ×2 (10:17→19:35)
[2023-07-20] MEDS: MICONAZOLE NITRATE 2% CR 30 GM TUBE EXT SCH ×2 (10:19→22:06)
--- NOTE | 2023-07-20 11:41 | Hospitalist Progress Note ---
Date of Service July 20, 2023 Assessment & Plan (1) COPD with exacerbation: (2) Atrial fibrillation: (3) History of stroke: (4) COPD (chronic obstructive pulmonary disease): (5) Chronic respiratory failure with hypoxia: (6) Congestive heart failure: (7) Anemia: Plan: COPD Exacerbation Acute on Chronic Hypoxic and hypercarbic respiratory Failure Acute on chronic HFpEF Patient is a 63-year-old female with history of COPD on 4 L of oxygen presents to the ED with shortness of breath. Chest x-ray on admission personally reviewed no definite infiltrate seen. No leukocytosis ABG personally reviewed; consistent with chronic respiratory acidosis. Respiratory viral panel negative. Pro-Chapincito negative EKG personally reviewed; normal sinus rhythm; no ST or T wave changes. High sensitivity troponin negative Continue on DuoNeb [id number], On prednisone 40 mg; will taper down after wheeze improves Inhaled budesonide and formoterol. Diuresing well with IV Lasix 40 mg twice daily; will change it to once a day starting tomorrow AM. Strict input and output monitoring. Wean oxygen as tolerated to keep saturation above 88%. Completed 5 days of doxycycline. Cutaneous candidiasis Cellulitis Significant redness in groin region. Also has tender nests/redness on left labia majora Started on miconazole nitrate. Given 1 dose of fluconazole 150 mg Received 3 days of ceftriaxone. Completed 5 days of doxycycline. Anemia -Hemoglobin stable around 8-10. - Indicative of iron deficiency anemia-patient reports that she has not picked this up [id number] and has been missing it for at least 2 weeks History of CVA, at least 9 strokes in the past - hx of PFO and hx of afib, on chronic anticoagulation with coumadin -Denies any focal weakness -PT/OT Sinus tachycardia Mild acute on Chronic diastolic CHF PFO Paroxysmal Afib -INR therapeutic today Diarrhea - Reports this is increased recently, she had been on antibiotics in March for UTI as well as 2 weeks ago completed course of Bactrim -C. difficile stool culture negative. No longer having diarrhea Urinary Incontinence - place purwick -Urinalysis not suggestive of infection. Moderate protein malnutrition -Albumin is decreased at 3.3 -Granddaughter reports that she drinks primarily Pepsi at home, minimal water intake - BMI of 59.7 Depression and anxiety - Continue home antihypertensives -Allow Ativan as tolerates this at home DVT PPx: Coumadin FEN/GI: Heart healthy diet Access/lines: 2 peripheral IVs CODE STATUS: Full code Dispo: Patient from home with daughter as caregiver from Wednesday to Wednesday. Patient continues to be hospitalized given COPD exacerbation/HFpEF. As per OT, patient needs 24/ care; will likely benefit from rehab. Case management on board. Time spent evaluating patient, direct bedside care, chart review, placing orders, interpretation of diagnostic studies, discussion with consultants, patient, and family members, as well as other required patient management activities is 60 minutes. Please note the above document was generated using voice recognition software. It may contain grammatical, syntax or spelling errors. Any formal questions or concerns about the content, text or information contained within the body of this dictation should be directly addressed to the provider for clarification Admission and Anticipated Discharge Date Admission Date: July 15, 2023 Subjective Patient seen and examined at bedside. She reports chest tightness. Her oxygen requirement is similar symptom; at 5 L of nasal cannula. Review of Systems Review of Systems: All systems reviewed & are unremarkable except as noted in Subjective Physical Exam Physical Exam: Constitutional: Alert oriented x3; appears to be in mild distress. Morbidly obese. Respiratory: Bilateral wheeze present. Cardiovascular: RRR, no murmur, no edema Vessels: no JVD or carotid bruit Chest: normal inspection of chest Abdomen: normal bowel sounds, soft, nontender, no hepatosplenomegaly Pelvic: Appears to have redness in groin area. Also tenderness and redness on left labia majora Musculoskeletal: no cyanosis or clubbing, extremities motor strength 5/5 Skin: no rashes, warm and dry normal turgor Neurologic: PERRL, EOMI, accommodation nl, no face palsy, no dysarthria CN's II- XI intact bilaterally and moves all extremities Psychiatric: A+Ox3, euthymic affect Results & Data Results & Data Vital Signs (Past 12 Hours) Vital Signs Temp Pulse Pulse Resp BP BP Pulse Ox 07/20/23 11:13 72 18 92 07/20/23 11:08 36.3 C L 72 20 104/66 93 07/20/23 10:38 07/20/23 10:28 67 07/20/23 07:48 37.1 C 89 20 128/80 91 07/20/23 07:11 78 18 98 07/20/23 03:51 36.6 C 76 20 114/68 94 07/20/23 02:11 O2 Del Method O2 Flow Rate 07/20/23 11:13 Nasal Cannula 5 07/20/23 11:08 Nasal Cannula 4 07/20/23 10:38 Nasal Cannula 5 07/20/23 10:28 07/20/23 07:48 Nasal Cannula 4 07/20/23 07:11 Nasal Cannula 5 07/20/23 03:51 Nasal Cannula 4 07/20/23 02:11 Nasal Cannula 5 Laboratory Results Laboratory Results WBC 9.45 K/ul (4.8-10.8) 07/20/23 06:15 RBC 3.77 M/uL (4.20-5.40) L 07/20/23 06:15 Hgb 10.2 g/dl (12.0-16.0) L 07/20/23 06:15 Hct 33.5 % (37.0-47.0) L 07/20/23 06:15 MCV 88.9 fL (80.0-100.0) 07/20/23 06:15 MCH 27.1 pg (25.0-34.0) 07/20/23 06:15 MCHC 30.4 g/dL (32.0-36.0) L 07/20/23 06:15 RDW Std Deviation 64.0 fL (36.4-46.3) H 07/20/23 06:15 RDW Coeff of Ursula 19.5 % (11.5-14.5) H 07/20/23 06:15 Plt Count 483 K/uL (130-400) H 07/20/23 06:15 MPV 9.1 fL (9.4-12.4) L 07/20/23 06:15 Immature Gran % (Auto) 0.8 % 07/20/23 06:15 Neut % (Auto) 69.6 % 07/20/23 06:15 Lymph % (Auto) 18.1 % 07/20/23 06:15 [place] % (Auto) 11.4 % 07/20/23 06:15 Eos % (Auto) 0.1 % 07/20/23 06:15 Baso % (Auto) 0.0 % 07/20/23 06:15 Neut # (Auto) 6.57 K/uL (1.40-6.50) H 07/20/23 06:15 Lymph # (Auto) 1.71 K/uL (1.20-3.40) 07/20/23 06:15 [place] # (Auto) 1.08 K/uL (0.11-0.59) H 07/20/23 06:15 Eos # (Auto) 0.01 K/uL (0.00-0.50) 07/20/23 06:15 Baso # (Auto) 0.00 K/uL (0.00-0.20) 07/20/23 06:15 Immature Gran # (Auto) 0.08 K/uL (0.01-0.20) 07/20/23 06:15 Absolute Nucleated RBC 0.07 K/uL (0.00-0.12) 07/20/23 06:15 Nucleated RBC % (auto) 0.7 % 07/20/23 06:15 Polychromasia 1+ 07/18/23 05:24 Anisocytosis Present 07/18/23 05:24 Stomatocytes 2+ 07/18/23 05:24 PT 23.3 Seconds (9.0-12.0) H 07/20/23 06:15 INR 2.2 (0.9-1.1) H 07/20/23 06:15 D-Dimer < 190 ug/L FEU (0-500) 07/15/23 13:45 VBG pH 7.33 (7.36-7.41) L 07/15/23 13:45 VBG pCO2 73 mmHg (38-50) H 07/15/23 13:45 VBG pO2 26 mmHg 07/15/23 13:45 VBG HCO3 39 mmol/L 07/15/23 13:45 VBG O2 Saturation < 60.0 % 07/15/23 13:45 VBG Base Excess 9.6 mEq/L 07/15/23 13:45 Sodium 140 mmol/L (136-145) 07/20/23 06:15 Potassium 3.6 mmol/L (3.5-5.1) 07/20/23 06:15 Chloride 95 mmol/L (98-107) L 07/20/23 06:15 Carbon Dioxide 42 mmol/L (21-32) H* 07/20/23 06:15 Anion Gap 3 (3-11) 07/20/23 06:15 BUN 34 mg/dl (6-23) H 07/20/23 06:15 Creatinine 0.74 mg/dl (0.6-1.2) 07/20/23 06:15 Est Cr Clr Drug Dosing 109.2 ml/min 07/20/23 06:15 Est GFR ( Amer) 99.9 ml/min 07/20/23 06:15 Est GFR (Non-Af Amer) 86.2 ml/min 07/20/23 06:15 BUN/Creatinine Ratio 45.9 (10-20) H 07/20/23 06:15 Glucose 100 mg/dl (70-99(Fasting)) H 07/20/23 06:15 POC Glucose 107 mg/dl (70-99) H 07/20/23 07:57 Calcium 8.3 mg/dl (8.6-10.3) L 07/20/23 06:15 Total Bilirubin 0.2 mg/dl (0.2-1.0) 07/20/23 06:15 AST 19 U/L (13-39) 07/20/23 06:15 ALT 23 U/L (7-52) 07/20/23 06:15 Alkaline Phosphatase 68 U/L (34-104) 07/20/23 06:15 Troponin I High Sens 6.7 pg/ml (0-14) 07/18/23 13:00 B-Natriuretic Peptide 204 pg/ml (0-100) H 07/15/23 15:09 Total Protein 6.0 gm/dl (6.0-8.3) 07/20/23 06:15 Albumin 3.3 gm/dl (3.4-5.0) L 07/20/23 06:15 Globulin 2.7 gm/dl (2.5-4.0) 07/20/23 06:15 Albumin/Globulin Ratio 1.2 (0.9-2) 07/20/23 06:15 Procalcitonin < 0.05 ng/ml (0-0.5) 07/17/23 11:09 Urine Color Yellow 07/16/23 02:18 Urine Appearance Clear (Clear) 07/16/23 02:18 Urine pH 6.5 (4.5-7.5) 07/16/23 02:18 Ur Specific [place] 1.015 (1.000-1.030) 07/16/23 02:18 Urine Protein Negative (Negative) 07/16/23 02:18 Urine Glucose (UA) Negative (Negative) 07/16/23 02:18 Urine Ketones Negative (Negative) 07/16/23 02:18 Urine Blood Negative (Negative) 07/16/23 02:18 Urine Nitrite Negative (Negative) 07/16/23 02:18 Urine Bilirubin Negative (Negative) 07/16/23 02:18 Urine Urobilinogen Negative (Negative) 07/16/23 02:18 Ur Leukocyte Esterase Negative (Negative) 07/16/23 02:18 Stl C. cayetanensis PCR Not Detected (NotDetected) 07/16/23 02:18 Stool Rotavirus A PCR Not Detected (NotDetected) 07/16/23 02:18 Stl Adenov F 40/41 PCR Not Detected (NotDetected) 07/16/23 02:18 Stool Astrovirus (PCR) Not Detected (NotDetected) 07/16/23 02:18 Stool Campylobacter PCR Not Detected (NotDetected) 07/16/23 02:18 Stl C. diff Tox B Gene Negative Cdiff Gene (Neg) 07/16/23 02:18 Stool Cryptosporidium PCR Not Detected (NotDetected) 07/16/23 02:18 Stl E.coli Shiga Tox PCR Not Detected (NotDetected) 07/16/23 02:18 Stl Enterotoxigenic E PCR Not Detected (NotDetected) 07/16/23 02:18 Stool EPEC (PCR) Not Detected (NotDetected) 07/16/23 02:18 Stool EAEC (PCR) Not Detected (NotDetected) 07/16/23 02:18 Stl E. histolytica PCR Not Detected (NotDetected) 07/16/23 02:18 Stool Giardia Lamblia PCR Not Detected (NotDetected) 07/16/23 02:18 Stool Salmonella PCR Not Detected (NotDetected) 07/16/23 02:18 Stool Sapovirus (PCR) Not Detected (NotDetected) 07/16/23 02:18 Stl P. shigelloides PCR Not Detected (NotDetected) 07/16/23 02:18 Stl Shigella/EIEC PCR Not Detected (NotDetected) 07/16/23 02:18 St Y.enterocolitica PCR Not Detected (NotDetected) 07/16/23 02:18 Stool Vibrio (PCR) Not Detected (NotDetected) 07/16/23 02:18 Stl Vibrio cholerae PCR Not Detected (NotDetected) 07/16/23 02:18 Stl Norovirus GI/GII PCR Not Detected (NotDetected) 07/16/23 02:18 Adenovirus (PCR) Not Detected (NotDetected) 07/15/23 Unknown B. pertussis DNA (PCR) Not Detected (NotDetected) 07/15/23 Unknown B.parapertussis DNA PCR Not Detected (NotDetected) 07/15/23 Unknown C. pneumoniae DNA (PCR) Not Detected (NotDetected) 07/15/23 Unknown Coronavirus OC43 (PCR) Not Detected (NotDetected) 07/15/23 Unknown Coronavirus HKU1 (PCR) Not Detected (NotDetected) 07/15/23 Unknown Coronavirus 229E (PCR) Not Detected (NotDetected) 07/15/23 Unknown SARS-CoV-2 (PCR) Not Detected (NotDetected) 07/15/23 Unknown Coronavirus NL63 (PCR) Not Detected (NotDetected) 07/15/23 Unknown Human Metapneumovir PCR Not Detected (NotDetected) 07/15/23 Unknown Influenza Type A (PCR) Not Detected (NotDetected) 07/15/23 Unknown Influenza Type B (PCR) Not Detected (NotDetected) 07/15/23 Unknown M. pneumoniae (PCR) Not Detected (NotDetected) 07/15/23 Unknown Parainfluenza 1 (PCR) Not Detected (NotDetected) 07/15/23 Unknown Parainfluenza 2 (PCR) Not Detected (NotDetected) 07/15/23 Unknown Parainfluenza 3 (PCR) Not Detected (NotDetected) 07/15/23 Unknown Parainfluenza 4 (PCR) Not Detected (NotDetected) 07/15/23 Unknown RSV (PCR) Not Detected (NotDetected) 08/31/23 Unknown Entero/Rhino (PCR) Not Detected (NotDetected) 07/15/23 Unknown Impressions Chest X-Ray 07/15/23 13:36 SINGLE VIEW CHEST CLINICAL HISTORY: Dyspnea FINDINGS: An AP, portable, upright chest radiograph is compared to study dated 08/20/2022. Correlation is made with chest CT dated 09/16/2015. The examination is degraded by portable technique, large body habitus, and apical lordotic positioning. The cardiomediastinal silhouette is unremarkable. There is bibasilar atelectasis. The lungs and pleural spaces are otherwise clear. No pneumothorax is seen. The skeletal structures are osteopenic. The bony thorax is grossly intact. IMPRESSION: No active disease in the chest. ACT 112: Negative or not required by law. Electronically signed by: Donavon Littlejohn M.D. 07/15/2023 2:28 PM
[2023-07-20] MEDS: WARFARIN SOD 2.5 MG TAB PO SCH (16:22)
[2023-07-20] MEDS: WARFARIN SOD 5 MG TAB PO SCH (17:04)
[2023-07-20] MEDS: MIRTAZAPINE TAB 15 MG TAB PO SCH (19:25)
[2023-07-20] MEDS: MONTELUKAST SODIUM 10 MG TABLET PO SCH (19:25)
[2023-07-20] MEDS: MICONAZOLE NITRATE POWDER 85 GM EXT PRN (19:27)
[2023-07-21] MEDS: ALBUT/IPRATROP 3MG/0.5MG NEB 3 ML VIAL NEB SCH ×6 (03:22→22:16)
[2023-07-21] MEDS: ACETAMINOPHEN W/CODEINE #3 1 TAB PO PRN ×2 (03:58→11:43)
[2023-07-21] MEDS: BUDESONIDE 0.5 MG/2 ML VIAL (PULMICORT) NEB SCH ×2 (07:15→19:19)
[2023-07-21] MEDS: FORMOTEROL 20 MCG/2 ML VIAL NEB SCH ×2 (07:15→19:19)
[2023-07-21 07:20] LABS: Basophils # (auto) 0.01 K/uL (0.00-0.20); Basophils % (auto) 0.1 %; Eosinophils # (auto) 0.06 K/uL (0.00-0.50); Eosinophils % (auto) 0.6 %; Hematocrit (blood only) 34.1 % (37.0-47.0); Hemoglobin 10.5 g/dl (12.0-16.0); Lymphocytes # (auto) 2.02 K/uL (1.20-3.40); Lymphocytes % (auto) 20.3 %; Mean Corpuscular Hemoglobin 27.3 pg (25.0-34.0); Mean Corpuscular Hgb Conc 30.8 g/dL (32.0-36.0); Mean Corpuscular Volume 88.6 fL (80.0-100.0); Mean Platelet Volume 9.6 fL (9.4-12.4); Monocytes # (auto) 1.06 K/uL (0.11-0.59); Monocytes % (auto) 10.6 %; Neutrophils # (auto) 6.71 K/uL (1.40-6.50); Neutrophils % (auto) 67.4 %; Nucleated RBC # (auto) 0.02 K/uL (0.00-0.12); Nucleated RBC % (auto) 0.2 %; Platelet Count 485 K/uL (130-400); RDW Coefficient of Variation 19.6 % (11.5-14.5); RDW Standard Deviation 63.6 fL (36.4-46.3); Red Blood Count 3.85 M/uL (4.20-5.40); White Blood Count 9.96 K/ul (4.8-10.8)
[2023-07-21 07:46] LABS: Albumin Globulin Ratio 1.2 (0.9-2); Albumin Level 3.2 gm/dl (3.4-5.0); BUN Creatinine Ratio 40.5 (10-20); Bilirubin,Total 0.3 mg/dl (0.2-1.0); Calcium 8.2 mg/dl (8.6-10.3); Creatinine Clr Calc Pharmacy 102.4 ml/min; Est GFR (African American) 92.3 ml/min; Est GFR (Non-African American) 79.7 ml/min; Globulin 2.7 gm/dl (2.5-4.0); Potassium 3.7 mmol/L (3.5-5.1); Total Protein 5.9 gm/dl (6.0-8.3)
[2023-07-21] MEDS: predniSONE 20 MG TAB PO SCH (08:33)
[2023-07-21] MEDS: LORazepam 0.5 MG TAB PO PRN ×2 (08:33→19:57)
[2023-07-21] MEDS: PANTOprazole 40 MG TAB PO SCH ×2 (08:34→19:47)
[2023-07-21] MEDS: OXYBUTYNIN CHLORIDE XL 5 MG TABCR PO SCH (08:34)
[2023-07-21] MEDS: ISOSORBIDE MONO EXTENDED REL 30 MG TABCR PO SCH (08:34)
[2023-07-21] MEDS: METOPROLOL SUCC 25MG EXT REL TAB PO SCH (08:34)
[2023-07-21] MEDS: guaiFENesin 600 MG TABCR PO SCH ×2 (08:35→19:48)
[2023-07-21] MEDS: busPIRone 5 MG TAB PO SCH ×2 (08:35→19:48)
[2023-07-21] MEDS: FUROSEMIDE 40 MG/4 ML VIAL IV SCH (08:41)
[2023-07-21] MEDS: INSULIN ASPART PER UNIT CHARGE SC SCH ×4 (08:41→21:56)
[2023-07-21] MEDS: POLYETHYLENE (MIRALAX) 17 GM PACK PO SCH (09:07)
[2023-07-21] MEDS: MICONAZOLE NITRATE 2% CR 30 GM TUBE EXT SCH ×2 (09:07→19:53)
[2023-07-21] MEDS ORDERED: NITROGLYCERIN SL 0.4 MG/TAB TAB SL PRN (09:26)
[2023-07-21 10:02] LABS: INR 2.3 (0.9-1.1); Prothrombin Time 23.8 Seconds (9.0-12.0)
--- NOTE | 2023-07-21 10:28 | XRay Report ---
XR chest 1V portable HISTORY: Chest Pain COMPARISON: Chest 07/15/2023. FINDINGS: No pneumothorax. There are low lung volumes. The cardiac silhouette remains borderline enla rged. There is no evidence for pulmonary edema. A few bibasilar linear densities favor subsegmental a telectasis. This is similar to the prior study. No new focal lung consolidations to suggest a pneumon ia. There are calcifications within the aortic knob. Old, healed left-sided rib fractures again noted . IMPRESSION: No significant change compared to the prior study. No acute process. ACT 112: Negative or not required by law. Electronically signed by: Otto Hendrickson M.D. 07/21/2023 10:26 AM
[2023-07-21] MEDS: traMADol HCL 50 MG TABLET PO PRN ×2 (10:31→19:06)
--- NOTE | 2023-07-21 13:02 | Pulmonology Progress Note ---
Date of Service July 21, 2023 Assessment & Plan (1) Chronic respiratory failure: Respiratory failure complication: hypoxia Qualified Code(s): J96.11 - Chronic respiratory failure with hypoxia (2) COPD with exacerbation: (3) Hypoxia: Plan Impression: 63-year-old female with morbid obesity and obesity hypoventilation syndrome with obstructive lung disease admitted with exacerbation. She is not really improved after treatment to this point with inhaled bronchodilators. Recommendations: 1. Obstructive lung disease: Continue nebulized Perforomist and budesonide. She is also receiving prednisone at 40 mg a day. Continue Singulair 10 mg daily. Add Incruse daily. Consider HUDSON but pt already complains of anxiety and tachycardia which would likely worsen with HUDSON. 2. Hypercarbic respiratory failure: This is likely exacerbating her hypoxemia. Recommended she retry nocturnal positive airway pressure. The patient states she cannot tolerate it. There are no acceptable alternatives. She is not a candidate for tracheostomy 3. Out of bed to chair is much as possible. If the patient remains in bed, she should try and keep her head elevated is much as possible. Cannot rule out a potential component of tracheomalacia/dynamic airway collapse contributing to the patient's symptoms. Could consider CAT scan of the chest although the patient's body habitus would make this somewhat difficult and there are no good treatment options other than positive airway pressure for this patient. 4. Ultimately the patient would require significant weight loss as a solution to her obesity hypoventilation syndrome. Would be very reluctant to use narcotics, benzodiazepines, or other respiratory suppressant medications given the patient's morbid obesity, hypercarbia, and propensity for hypercarbic respiratory failure. We will continue to follow with you. Feel free to contact us with questions or concerns Admission and Anticipated Discharge Date Admission Date: July 15, 2023 Subjective Patient seen and examined. EMR reviewed. The patient does still feels like she is not making much in the way of progress with regards to her breathing. She continues to complain of some chest tightness and wheezing. She states she has been out of bed to the chair. She is not coughing or expectorating phlegm. No fevers chills or night sweats. Review of Systems Review of Systems: All systems reviewed & are unremarkable except as noted in Subjective Physical Exam Constitutional: WD/WN, vitals as above + morbidly obese; no acute distress Neck: trachea midline, no thyromegaly Respiratory: no respiratory distress, no labored breathing, no cough and not tachypneic Auscultation: + wheezes Cardiovascular: RRR, no murmur, no edema Gastrointestinal (Abdomen): normal bowel sounds, soft, nontender, no hepatosplenomegaly Musculoskeletal: Extremities: extremities normal to inspection Skin: no rashes, warm and dry Lymphatic: no cervical lymphadenopathy Results & Data Results & Data Vital Signs (Past 12 Hours) Vital Signs Temp Pulse Pulse Resp BP BP Pulse Ox 07/21/23 11:50 36.4 C L 73 18 93/56 L 93 07/21/23 11:32 83 18 92 07/21/23 07:48 36.6 C 75 19 123/75 98 07/21/23 07:43 68 07/21/23 07:19 07/21/23 07:18 73 18 99 07/21/23 03:23 75 18 93 07/21/23 02:38 36.6 C 65 18 107/68 91 O2 Del Method O2 Flow Rate 07/21/23 11:50 Room Air 07/21/23 11:32 Nasal Cannula 4 07/21/23 07:48 Nasal Cannula 4 07/21/23 07:43 07/21/23 07:19 Nasal Cannula 4 07/21/23 07:18 Nasal Cannula 4 07/21/23 03:23 Nasal Cannula 4 07/21/23 02:38 Nasal Cannula 4 Laboratory Results 07/21/23 06:19 07/21/23 06:19 Diagnostic Findings No new imaging PG Care Time/CCT Total # of Minutes Spent Total Time Spent with Patient: Total time spent is greater than 50% in coordination of care (as documented) at patient's floor/unit and/or counseling patient: Coding Level of Care Code 46718 SUB INP/OBS CARE 3/50MIN Diagnoses Chronic respiratory failure J96.11 Respiratory failure complication: hypoxia COPD with exacerbation J44.1 Hypoxia R09.02
[2023-07-21] MEDS: hydrOXYzine HCl 10 MG TAB PO PRN (15:13)
--- NOTE | 2023-07-21 15:48 | Hospitalist Progress Note ---
Date of Service July 21, 2023 Assessment & Plan (1) COPD with exacerbation: (2) Atrial fibrillation: (3) History of stroke: (4) COPD (chronic obstructive pulmonary disease): (5) Chronic respiratory failure with hypoxia: (6) Congestive heart failure: (7) Anemia: Plan: Acute COPD Exacerbation Acute on Chronic Hypoxic and hypercarbic respiratory Failure Acute on chronic HFpEF Obesity hypoventilation syndrome DD: Cannot rule out tracheomalacia/dynamic airway collapse Patient is a 63-year-old female with history of COPD on 4 L of oxygen presents to the ED with shortness of breath. --CXR:No active disease in the chest. ABG consistent with chronic respiratory acidosis. Respiratory viral panel negative. Pro-Chapincito negative EKG personally reviewed; normal sinus rhythm; no ST or T wave changes. High sensitivity troponin negative -ECHO: Mild concentric LVH. LV wall motion is normal. EF 55 to 60%. Grade 1 diastolic dysfunction. Findings not suggestive of pulmonary hypertension. -Continue nebs, prednisone, Singulair. Added Incruse Intolerance to BiPAP at night in the past Completed 5-day course of doxycycline Appreciate pulmonology input Continue IV diuretics for now Monitor volume status Cardiology consulted as well Monitor I's and O's, daily weight Atypical chest pain Troponin negative Echo no wall motion abnormality INR therapeutic Cardiology consulted Cutaneous candidiasis Cellulitis groin Significant redness in groin region/left labia majora Continue topical miconazole nitrate. Received 1 dose of fluconazole 150 mg Received 3 days of ceftriaxone. Completed 5 days of doxycycline. Monitor Chronic Anemia -Hb stable around 8-10. -Indicative of iron deficiency anemia-patient reports that she has not picked this up [id number] and has been missing it for at least 2 weeks H/O CVA, at least 9 strokes in the past H/O PFO and Afib, on chronic anticoagulation with coumadin -Denies any focal weakness -PT/OT Sinus tachycardia Mild acute on Chronic diastolic CHF PFO Paroxysmal Afib -INR therapeutic Continue Coumadin Monitor INR 2.3 today Diarrhea - Reports this is increased recently, she had been on antibiotics in March for UTI as well as 2 weeks ago completed course of Bactrim -C. difficile stool culture negative. No diarrhea currently Urinary Incontinence - Continue purwick Morbid Obesity Moderate protein malnutrition -Albumin is decreased at 3.3 -Granddaughter reports that she drinks primarily Pepsi at home, minimal water intake - BMI of 59 Depression and anxiety -Continue home meds antihypertensives DVT Px: Coumadin CODE STATUS: Full code Admission and Anticipated Discharge Date Admission Date: July 15, 2023 Subjective Patient is seen and examined at bedside States having left-sided chest pain radiating to neck this morning No significant improvement of dyspnea as per patient Saturating well on baseline supplemental oxygen No other complaints Review of Systems Review of Systems: All systems reviewed & are unremarkable except as noted in Subjective Physical Exam Physical Exam: Physical Exam: Vitals signs as noted above General Appearance:Morbidly Obese, no apparent distress Head: normocephalic, Atraumatic Eyes: normal inspection, EOMI Neck: supple, Trachea midline Respiratory/Chest: Decreased breath sounds, B/L wheezes, No accessory muscle use Cardiovascular: S1, S2, No murmur Abdomen/GI:Soft, Non tender, Bowel sounds present Extremities/Musculoskeletal:normal inspection, Trace edema Neurologic/Psych:AAOX3, grossly no focal neurological deficits Skin: normal color, warm Results & Data Results & Data Vital Signs (Past 12 Hours) Vital Signs Temp Pulse Pulse Resp BP BP Pulse Ox 07/21/23 15:17 88 18 92 07/21/23 11:50 36.4 C L 73 18 93/56 L 93 07/21/23 11:32 83 18 92 07/21/23 07:48 36.6 C 75 19 123/75 98 07/21/23 07:43 68 07/21/23 07:19 07/21/23 07:18 73 18 99 O2 Del Method O2 Flow Rate 07/21/23 15:17 Nasal Cannula 4 07/21/23 11:50 Room Air 07/21/23 11:32 Nasal Cannula 4 07/21/23 07:48 Nasal Cannula 4 07/21/23 07:43 07/21/23 07:19 Nasal Cannula 4 07/21/23 07:18 Nasal Cannula 4 Laboratory Results Short CBC 07/21/23 Range/Units 06:19 WBC 9.96 (4.8-10.8) K/ul Hgb 10.5 L (12.0-16.0) g/dl Hct 34.1 L (37.0-47.0) % Plt Count 485 H (130-400) K/uL BMP 07/21/23 06:19 Sodium 140 Potassium 3.7 Chloride 97 L Carbon Dioxide 38 H BUN 32 H Creatinine 0.79 Glucose 72 Calcium 8.2 L Liver Function 07/21/23 Range/Units 06:19 Total Bilirubin 0.3 (0.2-1.0) mg/dl AST 17 (13-39) U/L ALT 25 (7-52) U/L Alkaline Phosphatase 64 (34-104) U/L Albumin 3.2 L (3.4-5.0) gm/dl
[2023-07-21] MEDS: UMECLIDINIUM BROMIDE 62.5MCG/BLISTER 7 PUFFS/INHALER INH SCH (17:33)
[2023-07-21] MEDS: WARFARIN SOD 5 MG TAB PO SCH (17:52)
[2023-07-21] MEDS ORDERED: WARFARIN SOD 2.5 MG TAB PO ONE (18:00)
--- NOTE | 2023-07-21 18:55 | Cardiology Consultation ---
Date of Consultation July 21, 2023 Assessment & Plan (1) Acute on chronic respiratory failure with hypoxia: (2) Bronchitis: Plan At previous outpatient visits, sinus tachycardia with rate of 100 bpm noted. Metoprolol succinate 25 mg daily was therefore added at her most recent outpatient cardiology visit with the undersigned in June,,. Heart rates under much better control at present with rate of 70 bpm at the time my assessment on telemetry. INR 2.3 today. As noted above, if patient has a history of atrial fibrillation or atrial flutter, I was unable to find definite documentation within her [facility] chart and the available records from [place] per previous chart review and per review of the available records it appears that she had been placed on Coumadin as a treatment after having presented with recurrent stroke several years ago and has remained on this. Her chest discomfort symptoms are felt to be atypical in character for angina. EKG, echocardiogram, and troponin levels are reassuring. Agree with ongoing IV diuretic as compared to her oral diuretic while hospitalized to keep her fluid balance on the negative side as blood pressure and renal function allows. History of Present Illness Attending Physician: Luis Curry MD History of Present Illness Kimberly Kendall is a 63-year-old female seen in cardiology consultation per the request of Dr. Curry for the evaluation of chest discomfort. Patient known to the undersigned as an outpatient.Patient initially admitted on 07/15/2023 with complaint of shortness of breath. Has complained of intermittent chest pressure during admission. She has a past medical history of morbid obesity, BMI 59.4 kg per metered squared, chart history of von Willebrand's disease, likely underlying obesity hypoventilation syndrome, and severe COPD. She is on chronic supplemental oxygen. She has had waxing and waning resting chest discomfort during this admission. High-sensitivity troponin levels as obtained on 07/15, 07/18, 07/21, have been negative x5 measurements thus far. EKG performed today 07/21/2023 revealed normal sinus rhythm at 76 bpm, possible left atrial enlargement. No significant repolarization changes to suggest ischemia. Echocardiogram performed today revealed mild concentric left ventricular hypertrophy, LVEF in the range of 55 to 60%, grade 1 diastolic dysfunction. No significant valvular disease. Findings do not suggest pulm hypertension. She reportedly underwent nuclear stress test for the evaluation of dyspnea on exertion and atypical chest pain in December 2016 that suggested ischemia. Cardiac catheterization performed in [place] 01/06/2017 reportedly revealed no obstructive coronary heart disease, LVEF 50% by left ventriculogram, subsequently improved to 60% on follow-up echocardiogram September,. Bilateral lower extremity edema noted the time the progress note for which treatment with furosemide and metolazone recommended at that time in 2017. As noted in my previous progress note, the diagnosis of atrial fibrillation first appears in her chart in 2009 and is associated with her Coumadin therapy. The patient however is unaware of the term atrial fibrillation. I had been unable to find any definite EKG evidence of atrial fibrillation but the patient did have a documented history of recurrent stroke events and transesophageal echocardiogram performed in [place] in 2016 revealed an atrial septal aneurysm and PFO and ongoing anticoagulation for secondary prevention of stroke was recommended. It appears that she is been on Coumadin since proximally 2003. Allergies Allergy/AdvReac Type Severity Reaction Status Date / Time aspirin Allergy Unknown TAKES Verified 07/15/23 16:00 COUMADIN salicylates AdvReac Unknown ?DUE TO Verified 07/15/23 16:00 COUMADIN? Home Medications Medication Instructions Recorded Confirmed Type albuterol sulfate 5 mg/mL(0.5 %) 2.5 mg inhalation DIRECTED PRN 08/20/22 07/15/23 History solution for nebulization Shortness Of Breath Or Wheezing albuterol sulfate 90 mcg/actuation 2 puff inhalation QID PRN sob 08/20/22 07/15/23 History aerosol inhaler baclofen 10 mg tablet 10 mg PO TID PRN Muscle Pain 08/20/22 07/15/23 History buspirone 10 mg tablet 20 mg PO AMHS 08/20/22 07/15/23 History cholecalciferol (vitamin D3) 25 25 mcg PO QAM 08/20/22 07/15/23 History mcg (1,000 unit) capsule (Vitamin D3) furosemide 20 mg tablet (Lasix) 20 mg PO DAILY PRN .SWELLING IN 08/20/22 07/15/23 History LOWER LEGS isosorbide mononitrate 30 mg 30 mg PO QAM 08/20/22 07/15/23 History tablet,extended release 24 hr lorazepam 0.5 mg tablet 0.5 mg PO Q8 PRN Anxiety 08/20/22 07/15/23 History mirtazapine 30 mg tablet 30 mg PO HS 08/20/22 07/15/23 History tramadol 100 mg tablet 100 mg PO Q8 PRN .MOD-SEVERE PAIN 08/20/22 07/15/23 History warfarin 5 mg tablet 2.5 mg PO MOWEFR@1600 08/20/22 07/15/23 History ferrous sulfate 325 mg (65 mg 325 mg PO QAM 01/12/23 07/15/23 History iron) tablet acetaminophen 300 mg-codeine 30 mg 1 tab PO Q6 PRN Moderate Pain 07/15/23 07/15/23 History tablet (Scale Score 5-6) fluticasone propionate 115 2 puff inhalation AMHS 07/15/23 07/15/23 History mcg-salmeterol 21 mcg/actuation HFA inhaler (Advair HFA) metoprolol succinate 25 mg 25 mg PO QAM 07/15/23 07/15/23 History tablet,extended release 24 hr omeprazole 20 mg capsule,delayed 20 mg PO AMHS 07/15/23 07/15/23 History release potassium chloride 10 mEq 10 meq PO AMHS 07/15/23 07/15/23 History capsule,extended release solifenacin 10 mg tablet 10 mg PO QAM 07/15/23 07/15/23 History warfarin 5 mg tablet 5 mg PO SUTUTHSA 07/15/23 07/15/23 History Patient History Medical History Anemia Anticoagulated on Coumadin Anxiety and depression Chronic pain on daily narcotics (tramadol PRN) Chronic respiratory failure with hypoxia Congestive heart failure follows with [facility] cardiology ([facility]) COPD (chronic obstructive pulmonary disease) Degenerative disc disease Dementia "very early stages" Alert and oriented x3. granddaughter is the caregiver of patient. Diarrhea started about 1 year ago -- will come and go. History of COVID-19 Spring 2020. treated at [facility] inpatient. symptoms included: sob, cough, desaturation 84-87%, congestion, headache, fatigue. no ventilator at the time. no current problems. History of stroke "embolic stroke, underlying PFO" total of 9 strokes -> last stroke ~6+years ago. damaged urinary nerve and mild left sided weakness. Hypertension Morbid obesity On home oxygen therapy continuous 3lpm via n/c. (will increase to 4lpm via n/c if needed) Osteoarthritis Paroxysmal A-fib feels her heart race at times. Peripheral neuropathy Post traumatic stress disorder Sleep apnea mild RUFINA (dx in ) no machine currently -- pt to have another sleep study february 2023. Submucosal lesion of stomach Noted on EGD 11/06/20 Urinary incontinence Surgical History H/O colonoscopy H/O esophagogastroduodenoscopy [facility]" -- pt unsure of details. History of cataract surgery bilateral Hx of lumpectomy left breast (benign) Status post cholecystectomy Status post hernia repair Right inguinal Status post hysterectomy MERT with BSO Family History Grandmother (Maternal) FHx: bladder cancer Father FHx: stroke Other Heart disease No family history of adverse response to anesthesia Social History Smoking Status: Former smoker Tobacco Type: Cigarettes Second Hand Exposure: No; Do You Dip or Chew Tobacco: No; Hx Alcohol Use: No Hx Substance Use: No Preferred Language: [place] Communication Ability: Effective Hemstitcher Required: No Beliefs That Will Affect Care: None marital status: / Current Living Situation: Alone Current Living Situation Comment: Granddaughter is the caregiver. Comes M-F 8am-4pm. Other Information That Helps Us Care for You: No Feels Safe at Home: Yes Safety Concerns: Feels Safe At This Time Assistive Devices: Hospital Bed, Nebulizer, Oxygen - Continuous, Scooter/Electric Scooter, Walker and Wheelchair Review of Systems Review of Systems: All systems reviewed & are unremarkable except as noted in HPI & below Physical Exam Constitutional: + morbidly obese Respiratory: no cough and not tachypneic Auscultation: + wheezes; no rales and no rhonchi Cardiovascular: Rate/Rhythm: regular rate Heart Sounds: no murmur Extremities: no edema Gastrointestinal (Abdomen): normal bowel sounds, soft, nontender, no hepatosplenomegaly Neurologic: PERRL, EOMI, accommodation nl, no face palsy, no dysarthria Results & Data Vital Signs (Past 12 Hours) Vital Signs Temp Pulse Pulse Resp BP BP Pulse Ox 07/21/23 17:25 81 07/21/23 17:05 81 07/21/23 16:01 36.8 C 84 20 98/61 L 91 07/21/23 15:17 88 18 92 07/21/23 11:50 36.4 C L 73 18 93/56 L 93 07/21/23 11:32 83 18 92 07/21/23 07:48 36.6 C 75 19 123/75 98 07/21/23 07:43 68 07/21/23 07:19 07/21/23 07:18 73 18 99 O2 Del Method O2 Flow Rate 07/21/23 17:25 07/21/23 17:05 07/21/23 16:01 Nasal Cannula 4 07/21/23 15:17 Nasal Cannula 4 07/21/23 11:50 Room Air 07/21/23 11:32 Nasal Cannula 4 07/21/23 07:48 Nasal Cannula 4 07/21/23 07:43 07/21/23 07:19 Nasal Cannula 4 07/21/23 07:18 Nasal Cannula 4 Laboratory Results Cardiac Enzymes 07/21/23 07/21/23 07/21/23 Range/Units 06:19 09:45 15:09 AST 17 (13-39) U/L Troponin I High Sens 6.4 5.1 (0-14) pg/ml Coagulation 07/21/23 Range/Units 09:45 PT 23.8 H (9.0-12.0) Seconds CBC 07/21/23 Range/Units 06:19 WBC 9.96 (4.8-10.8) K/ul RBC 3.85 L (4.20-5.40) M/uL Hgb 10.5 L (12.0-16.0) g/dl Hct 34.1 L (37.0-47.0) % Plt Count 485 H (130-400) K/uL Neut # (Auto) 6.71 H (1.40-6.50) K/uL Lymph # (Auto) 2.02 (1.20-3.40) K/uL [place] # (Auto) 1.06 H (0.11-0.59) K/uL Eos # (Auto) 0.06 (0.00-0.50) K/uL Baso # (Auto) 0.01 (0.00-0.20) K/uL Comprehensive Metabolic Panel 07/21/23 Range/Units 06:19 Sodium 140 (136-145) mmol/L Potassium 3.7 (3.5-5.1) mmol/L Chloride 97 L (98-107) mmol/L Carbon Dioxide 38 H (21-32) mmol/L BUN 32 H (6-23) mg/dl Creatinine 0.79 (0.6-1.2) mg/dl Glucose 72 (70-99(Fasting)) mg/dl Calcium 8.2 L (8.6-10.3) mg/dl AST 17 (13-39) U/L ALT 25 (7-52) U/L Alkaline Phosphatase 64 (34-104) U/L Total Protein 5.9 L (6.0-8.3) gm/dl Albumin 3.2 L (3.4-5.0) gm/dl Intake and Output 07/21/23 07/21/23 07/21/23 06:59 14:59 22:59 Intake Total 200 / 1000 240 / 240 Output Total 150 / 1525 400 / 400 Balance 50 / -525 -160 / -160 Intake: Oral 200 / 1000 240 / 240 Output: Urine Amount (Catheter) 150 / 1525 400 / 400 External 150 / 1525 400 / 400 Other: # Unmeasured Voids 2 Weight 147.4 kg Weight Measurement Method Built in [facility]
[2023-07-21] MEDS: MONTELUKAST SODIUM 10 MG TABLET PO SCH (19:47)
[2023-07-21] MEDS: MIRTAZAPINE TAB 15 MG TAB PO SCH (19:47)
[2023-07-22] MEDS: ALBUT/IPRATROP 3MG/0.5MG NEB 3 ML VIAL NEB SCH ×6 (03:22→23:59)
[2023-07-22] MEDS: ACETAMINOPHEN W/CODEINE #3 1 TAB PO PRN ×2 (05:38→14:32)
[2023-07-22] MEDS: LORazepam 0.5 MG TAB PO PRN ×2 (06:05→21:30)
[2023-07-22] MEDS: BUDESONIDE 0.5 MG/2 ML VIAL (PULMICORT) NEB SCH ×2 (07:05→19:49)
[2023-07-22] MEDS: FORMOTEROL 20 MCG/2 ML VIAL NEB SCH ×2 (07:05→19:50)
[2023-07-22 08:50] LABS: Hematocrit (blood only) 36.1 % (37.0-47.0); Hemoglobin 10.9 g/dl (12.0-16.0); Mean Corpuscular Hemoglobin 26.9 pg (25.0-34.0); Mean Corpuscular Hgb Conc 30.2 g/dL (32.0-36.0); Mean Corpuscular Volume 89.1 fL (80.0-100.0); Platelet Count 522 K/uL (130-400); RDW Coefficient of Variation 19.6 % (11.5-14.5); RDW Standard Deviation 63.9 fL (36.4-46.3); Red Blood Count 4.05 M/uL (4.20-5.40); White Blood Count 10.75 K/ul (4.8-10.8)
[2023-07-22] MEDS: FUROSEMIDE 40 MG/4 ML VIAL IV SCH (08:52)
[2023-07-22] MEDS: busPIRone 5 MG TAB PO SCH ×2 (08:52→21:22)
[2023-07-22] MEDS: guaiFENesin 600 MG TABCR PO SCH ×2 (08:52→21:22)
[2023-07-22] MEDS: METOPROLOL SUCC 25MG EXT REL TAB PO SCH (08:52)
[2023-07-22] MEDS: PANTOprazole 40 MG TAB PO SCH ×2 (08:52→21:21)
[2023-07-22] MEDS: POLYETHYLENE (MIRALAX) 17 GM PACK PO SCH (08:53)
[2023-07-22] MEDS: OXYBUTYNIN CHLORIDE XL 5 MG TABCR PO SCH (08:53)
[2023-07-22] MEDS: MICONAZOLE NITRATE 2% CR 30 GM TUBE EXT SCH ×2 (08:54→21:21)
[2023-07-22] MEDS: ISOSORBIDE MONO EXTENDED REL 30 MG TABCR PO SCH (08:54)
[2023-07-22] MEDS: predniSONE 20 MG TAB PO SCH (08:54)
[2023-07-22] MEDS: UMECLIDINIUM BROMIDE 62.5MCG/BLISTER 7 PUFFS/INHALER INH SCH (08:55)
[2023-07-22] MEDS: hydrOXYzine HCl 10 MG TAB PO PRN ×2 (08:56→16:21)
[2023-07-22] MEDS: INSULIN ASPART PER UNIT CHARGE SC SCH ×4 (09:06→21:30)
--- NOTE | 2023-07-22 09:12 | Pulmonology Progress Note ---
Date of Service July 22, 2023 Assessment & Plan (1) Chronic respiratory failure: Respiratory failure complication: hypoxia Qualified Code(s): J96.11 - Chronic respiratory failure with hypoxia (2) COPD with exacerbation: (3) Hypoxia: Plan Impression: 63-year-old female with morbid obesity and obesity hypoventilation syndrome with obstructive lung disease admitted with exacerbation. She had persistent issues with wheezing which appears to be emanating from her anterior neck. Given her failure to respond, I am highly concerned about potential vocal cord dysfunction. We do not have PFTs available to review. Recommendations: 1. Obstructive lung disease: This is by report as we do not have PFTs available. She is not responded favorably to aggressive therapies and I wonder whether or not she could have a component of vocal cord dysfunction. For now continue nebulized Perforomist and budesonide. She is also receiving prednisone at 40 mg a day. Continue Singulair 10 mg daily. Continue Incruse daily. Would discontinue steroids after 5 days. Recommend outpatient PFTs and consideration for outpatient ENT consultation as well as speech therapy consultation for potential vocal cord dysfunction. [facility] with [facility] and can follow-up with them. 2. Hypercarbic respiratory failure: This is likely exacerbating her hypoxemia. Recommended she retry nocturnal positive airway pressure. The patient states she cannot tolerate it. There are no acceptable alternatives. She is not a candidate for tracheostomy 3. Out of bed to chair is much as possible. 4. Ultimately the patient would require significant weight loss as a solution to her obesity hypoventilation syndrome. Would be very reluctant to use narcotics, benzodiazepines, or other respiratory suppressant medications given the patient's morbid obesity, hypercarbia, and propensity for hypercarbic respiratory failure. Patient states she is considering being discharged from the hospital within the next 24 hours. I think this is reasonable as she is received maximal inpatient therapy. Outpatient follow[facility] with [facility] pulmonary as recommended. Feel free to contact us with questions. Admission and Anticipated Discharge Date Admission Date: July 15, 2023 Subjective Patient seen and examined. EMR reviewed. The patient reports continued tightness. She has intermittent chest burning. She has noted wheezing but her wheezing appears to be emanating from her neck. She is never been diagnosed with vocal cord dysfunction or had an evaluation for VCD in the past. She continues to complain of anxiety Review of Systems Review of Systems: All systems reviewed & are unremarkable except as noted in Subjective Physical Exam Constitutional: WD/WN, vitals as above + morbidly obese; no acute distress Neck: trachea midline, no thyromegaly Significant wheezing over the anterior neck Respiratory: no respiratory distress, no labored breathing, no cough and not tachypneic Auscultation: + wheezes Cardiovascular: RRR, no murmur, no edema Gastrointestinal (Abdomen): normal bowel sounds, soft, nontender, no hepatosplenomegaly Musculoskeletal: Extremities: extremities normal to inspection Skin: no rashes, warm and dry Lymphatic: no cervical lymphadenopathy Results & Data Results & Data Vital Signs (Past 12 Hours) Vital Signs Temp Pulse Pulse Resp BP Pulse Ox O2 Del Method 07/22/23 07:48 36.5 C 68 18 136/75 99 Nasal Cannula 07/22/23 07:09 71 07/22/23 04:32 36.7 C 68 18 106/68 92 Nasal Cannula 07/21/23 22:00 71 07/22/23 00:00 Nasal Cannula 07/21/23 22:16 72 18 92 Nasal Cannula O2 Flow Rate 07/22/23 07:48 4 07/22/23 07:09 07/22/23 04:32 3 07/21/23 22:00 07/22/23 00:00 3 07/21/23 22:16 4 Laboratory Results 07/22/23 08:12 07/21/23 06:19 Diagnostic Findings Unchanged from prior PG Care Time/CCT Total # of Minutes Spent Total Time Spent with Patient: Total time spent is greater than 50% in coordination of care (as documented) at patient's floor/unit and/or counseling patient: Coding Level of Care Code 90996 SUB INP/OBS CARE 2/35MIN Diagnoses Chronic respiratory failure J96.11 Respiratory failure complication: hypoxia COPD with exacerbation J44.1 Hypoxia R09.02
[2023-07-22 09:16] LABS: INR 2.1 (0.9-1.1); Prothrombin Time 21.6 Seconds (9.0-12.0)
[2023-07-22] MEDS: traMADol HCL 50 MG TABLET PO PRN ×2 (10:40→21:30)
--- NOTE | 2023-07-22 16:14 | Hospitalist Progress Note ---
Date of Service July 22, 2023 Assessment & Plan (1) COPD with exacerbation: (2) Atrial fibrillation: (3) History of stroke: (4) COPD (chronic obstructive pulmonary disease): (5) Chronic respiratory failure with hypoxia: (6) Congestive heart failure: (7) Anemia: Plan: Acute COPD Exacerbation Acute on Chronic Hypoxic and hypercarbic respiratory Failure Acute on chronic HFpEF Obesity hypoventilation syndrome DD: Cannot rule out tracheomalacia/dynamic airway collapse, vocal cord dysfunction Patient is a 63-year-old female with history of COPD on 4 L of oxygen presents to the ED with shortness of breath. --CXR:No active disease in the chest. ABG consistent with chronic respiratory acidosis. Respiratory viral panel negative. Pro-[place] negative EKG personally reviewed; normal sinus rhythm; no ST or T wave changes. High sensitivity troponin negative -ECHO: Mild concentric LVH. LV wall motion is normal. EF 55 to 60%. Grade 1 diastolic dysfunction. Findings not suggestive of pulmonary hypertension. -Continue nebs, prednisone, Singulair. Added Incruse Intolerance to BiPAP at night in the past due to claustrophobia Patient continues to refuse retrial of BiPAP Not a candidate for tracheostomy per pulmonology Completed 5-day course of doxycycline Appreciate pulmonology input Continue IV diuretics for now Monitor volume status Cardiology consulted as well Monitor I's and O's, daily weight Plan to discontinue prednisone after 5-day course Will need outpatient PFTs Will also need outpatient ENT consultation Request speech eval Recommended out of bed to chair as able Patient requests to be discharged home tomorrow if able Atypical chest pain Troponin negative Echo no wall motion abnormality INR therapeutic Appreciate cardiology input Cutaneous candidiasis Cellulitis groin Significant redness in groin region/left labia majora Continue topical miconazole nitrate. Received 1 dose of fluconazole 150 mg Received 3 days of ceftriaxone. Completed 5 days of doxycycline. Monitor Chronic Anemia -Hb stable around 8-10. -Indicative of iron deficiency anemia-patient reports that she has not picked this up [id number] and has been missing it for at least 2 weeks H/O CVA, at least 9 strokes in the past H/O PFO and Afib, on chronic anticoagulation with coumadin -Denies any focal weakness -PT/OT Sinus tachycardia Mild acute on Chronic diastolic CHF PFO Paroxysmal Afib -INR therapeutic Continue Coumadin Monitor INR 2.1 today Diarrhea - Reports this is increased recently, she had been on antibiotics in March for UTI as well as 2 weeks ago completed course of Bactrim -C. difficile stool culture negative. No diarrhea currently Urinary Incontinence - Continue purwick Morbid Obesity Moderate protein malnutrition -Albumin is decreased at 3.3 -Granddaughter reports that she drinks primarily Pepsi at home, minimal water intake - BMI of 59 Depression and anxiety -Continue home meds antihypertensives DVT Px: Coumadin CODE STATUS: Full code Admission and Anticipated Discharge Date Admission Date: July 15, 2023 Subjective Patient is seen and examined at bedside Denies any significant change when compared to yesterday Continues to wheeze on exam No new complaints Renal function stable while on IV diuretics Continues to complain of dyspnea, cough, chest discomfort Saturating well on baseline supplemental oxygen Review of Systems Review of Systems: All systems reviewed & are unremarkable except as noted in Subjective Physical Exam Physical Exam: Physical Exam: Vitals signs as noted above General Appearance:Morbidly Obese, no apparent distress Head: normocephalic, Atraumatic Eyes: normal inspection, EOMI Neck: supple, Trachea midline Respiratory/Chest: Decreased breath sounds, B/L wheezes, No accessory muscle use Cardiovascular: S1, S2, No murmur Abdomen/GI:Soft, Non tender, Bowel sounds present Extremities/Musculoskeletal:normal inspection, Trace edema Neurologic/Psych:AAOX3, grossly no focal neurological deficits Skin: normal color, warm Results & Data Results & Data Vital Signs (Past 12 Hours) Vital Signs Temp Pulse Pulse Resp BP BP Pulse Ox 07/22/23 15:51 36.4 C L 80 16 105/68 91 07/22/23 15:13 77 20 93 07/22/23 12:17 36.3 C L 75 16 108/75 100 07/22/23 08:00 07/22/23 07:48 36.5 C 68 18 136/75 99 07/22/23 07:09 71 07/22/23 04:32 36.7 C 68 18 106/68 92 O2 Del Method O2 Flow Rate 07/22/23 15:51 Nasal Cannula 3 07/22/23 15:13 Nasal Cannula 4 07/22/23 12:17 Nasal Cannula 3 07/22/23 08:00 Nasal Cannula 3 07/22/23 07:48 Nasal Cannula 4 07/22/23 07:09 07/22/23 04:32 Nasal Cannula 3 Laboratory Results Short CBC 07/22/23 Range/Units 08:12 WBC 10.75 (4.8-10.8) K/ul Hgb 10.9 L (12.0-16.0) g/dl Hct 36.1 L (37.0-47.0) % Plt Count 522 H (130-400) K/uL
[2023-07-22] MEDS: WARFARIN SOD 5 MG TAB PO SCH (16:21)
--- NOTE | 2023-07-22 17:59 | Electrocardiogram Report ---
Test Reason : Blood Pressure : / mmHG Vent. Rate : 076 BPM Atrial Rate : 076 BPM P-R Int : 134 ms QRS Dur : 086 ms QT Int : 406 ms P-R-T Axes : 022 -02 011 degrees QTc Int : 456 ms Normal sinus rhythm Possible Left atrial enlargement Borderline ECG When compared with ECG of 18-JUL-2023 11:10, No significant change was found Confirmed by Dov Cintron ([id number]) on 07/22/2023 5:59:23 PM Referred By: REFERRED SELF Confirmed By:David Cintron
[2023-07-22] MEDS: MIRTAZAPINE TAB 15 MG TAB PO SCH (21:21)
[2023-07-22] MEDS: MONTELUKAST SODIUM 10 MG TABLET PO SCH (21:21)
[2023-07-23] MEDS: ALBUT/IPRATROP 3MG/0.5MG NEB 3 ML VIAL NEB SCH ×4 (03:39→15:26)
[2023-07-23] MEDS: LORazepam 0.5 MG TAB PO PRN ×2 (05:49→13:01)
[2023-07-23] MEDS: ACETAMINOPHEN W/CODEINE #3 1 TAB PO PRN ×2 (05:49→15:15)
[2023-07-23] MEDS: BUDESONIDE 0.5 MG/2 ML VIAL (PULMICORT) NEB SCH (07:00)
[2023-07-23] MEDS: FORMOTEROL 20 MCG/2 ML VIAL NEB SCH (07:00)
[2023-07-23] MEDS: hydrOXYzine HCl 10 MG TAB PO PRN ×2 (07:39→16:15)
[2023-07-23] MEDS: traMADol HCL 50 MG TABLET PO PRN (07:52)
[2023-07-23 08:03] LABS: Anion Gap 5 (3-11); Carbon Dioxide 34 mmol/L (21-32); Chloride 98 mmol/L (98-107); Sodium 137 mmol/L (136-145)
[2023-07-23 08:18] LABS: BUN Creatinine Ratio 40.8 (10-20); Blood Urea Nitrogen 31 mg/dl (6-23); Est GFR (African American) 96.8 ml/min; Est GFR (Non-African American) 83.5 ml/min; Glucose 73 mg/dl (70-99(Fasting))
[2023-07-23 08:25] LABS: INR 2.3 (0.9-1.1); Prothrombin Time 23.5 Seconds (9.0-12.0)
--- NOTE | 2023-07-23 08:29 | Pulmonology Progress Note ---
Date of Service July 23, 2023 Assessment & Plan (1) Chronic respiratory failure: Respiratory failure complication: hypoxia Qualified Code(s): J96.11 - Chronic respiratory failure with hypoxia (2) COPD with exacerbation: (3) Hypoxia: Plan Impression: 63-year-old female with morbid obesity and obesity hypoventilation syndrome with obstructive lung disease admitted with exacerbation. She had persistent issues with wheezing which appears to be emanating from her anterior neck. Given her failure to respond, I am highly concerned about potential vocal cord dysfunction. We do not have PFTs available to review. Recommendations: 1. Obstructive lung disease: This is by report as we do not have PFTs available. She is not responded favorably to aggressive therapies and I wonder whether or not she could have a component of vocal cord dysfunction. For now continue nebulized Perforomist and budesonide. She is also receiving prednisone at 40 mg a day. Discontinue after 5 days. Continue Singulair 10 mg daily. Continue Incruse daily. Recommend outpatient PFTs and consideration for outpatient ENT consultation as well as speech therapy consultation for potential vocal cord dysfunction. Patient is established with the [facility] and can follow-up with them. 2. Hypercarbic respiratory failure: This is likely exacerbating her hypoxemia. Recommended she retry nocturnal positive airway pressure. The patient states she cannot tolerate it. There are no acceptable alternatives. She is not a candidate for tracheostomy 3. Out of bed to chair is much as possible. 4. Ultimately the patient would require significant weight loss as a solution to her obesity hypoventilation syndrome. Would be very reluctant to use narcotics, benzodiazepines, or other respiratory suppressant medications given the patient's morbid obesity, hypercarbia, and propensity for hypercarbic respiratory failure. No new recommendations. We will continue to follow peripherally but the patient is interested in potential discharge in the hospital. Outpatient follow-up with the [facility] pulmonary group would be reasonable Admission and Anticipated Discharge Date Admission Date: July 15, 2023 Subjective Patient seen and examined. She sitting up in a chair. She feels she is hyperventilating and is extremely anxious at this point in time. She feels her anxiety is likely contributing to her breathing issues. Review of Systems Review of Systems: All systems reviewed & are unremarkable except as noted in Subjective Physical Exam Constitutional: WD/WN, vitals as above + morbidly obese; no acute distress Neck: trachea midline, no thyromegaly Respiratory: no respiratory distress, no labored breathing, no cough and not tachypneic Auscultation: + wheezes Cardiovascular: RRR, no murmur, no edema Gastrointestinal (Abdomen): normal bowel sounds, soft, nontender, no hepatosplenomegaly Musculoskeletal: Extremities: extremities normal to inspection Skin: no rashes, warm and dry Lymphatic: no cervical lymphadenopathy Results & Data Results & Data Vital Signs (Past 12 Hours) Vital Signs Temp Pulse Pulse Resp BP Pulse Ox O2 Del Method 07/23/23 07:59 36.5 C 78 18 108/70 92 Nasal Cannula 07/23/23 07:01 71 14 92 Nasal Cannula 07/23/23 02:02 36.5 C 70 20 110/67 94 Nasal Cannula 07/23/23 00:01 72 18 94 Nasal Cannula 07/22/23 23:31 72 07/22/23 22:44 36.6 C 71 18 113/73 95 Nasal Cannula 07/22/23 22:44 Nasal Cannula O2 Flow Rate 07/23/23 07:59 4 07/23/23 07:01 4 07/23/23 02:02 4 07/23/23 00:01 4 07/22/23 23:31 07/22/23 22:44 4 07/22/23 22:44 3 Laboratory Results 07/22/23 08:12 07/23/23 06:46 Diagnostic Findings No new imaging PG Care Time/CCT Total # of Minutes Spent Total Time Spent with Patient: Total time spent is greater than 50% in coordination of care (as documented) at patient's floor/unit and/or counseling patient: Coding Level of Care Code 79836 SUB INP/OBS CARE 2/35MIN Diagnoses Chronic respiratory failure J96.11 Respiratory failure complication: hypoxia COPD with exacerbation J44.1 Hypoxia R09.02
[2023-07-23] MEDS: INSULIN ASPART PER UNIT CHARGE SC SCH ×2 (08:48→12:55)
[2023-07-23] MEDS: POLYETHYLENE (MIRALAX) 17 GM PACK PO SCH (08:48)
[2023-07-23] MEDS: FUROSEMIDE 40 MG/4 ML VIAL IV SCH (08:50)
[2023-07-23] MEDS: busPIRone 5 MG TAB PO SCH (08:50)
[2023-07-23] MEDS: guaiFENesin 600 MG TABCR PO SCH (08:50)
[2023-07-23] MEDS: METOPROLOL SUCC 25MG EXT REL TAB PO SCH (08:51)
[2023-07-23] MEDS: MICONAZOLE NITRATE POWDER 85 GM EXT PRN (08:51)
[2023-07-23] MEDS: ISOSORBIDE MONO EXTENDED REL 30 MG TABCR PO SCH (08:51)
[2023-07-23] MEDS: MICONAZOLE NITRATE 2% CR 30 GM TUBE EXT SCH (08:51)
[2023-07-23] MEDS: PANTOprazole 40 MG TAB PO SCH (08:52)
[2023-07-23] MEDS: predniSONE 20 MG TAB PO SCH (08:52)
[2023-07-23] MEDS: UMECLIDINIUM BROMIDE 62.5MCG/BLISTER 7 PUFFS/INHALER INH SCH (08:52)
[2023-07-23] MEDS: OXYBUTYNIN CHLORIDE XL 5 MG TABCR PO SCH (08:52)
--- NOTE | 2023-07-23 13:50 | Hospitalist Progress Note ---
Date of Service July 23, 2023 Assessment & Plan (1) COPD with exacerbation: (2) Atrial fibrillation: (3) History of stroke: (4) COPD (chronic obstructive pulmonary disease): (5) Chronic respiratory failure with hypoxia: (6) Congestive heart failure: (7) Anemia: Plan: Acute COPD Exacerbation Acute on Chronic Hypoxic and hypercarbic respiratory Failure Acute on chronic HFpEF Obesity hypoventilation syndrome DD: Cannot rule out tracheomalacia/dynamic airway collapse, vocal cord dysfunction Patient is a 63-year-old female with history of COPD on 4 L of oxygen presents to the ED with shortness of breath. --CXR:No active disease in the chest. ABG consistent with chronic respiratory acidosis. Respiratory viral panel negative. Pro-[place] negative EKG personally reviewed; normal sinus rhythm; no ST or T wave changes. High sensitivity troponin negative -ECHO: Mild concentric LVH. LV wall motion is normal. EF 55 to 60%. Grade 1 diastolic dysfunction. Findings not suggestive of pulmonary hypertension. -Continue nebs, prednisone, Singulair. Added Incruse Intolerance to BiPAP at night in the past due to claustrophobia Patient continues to refuse retrial of BiPAP Not a candidate for tracheostomy per pulmonology Completed 5-day course of doxycycline Appreciate pulmonology input Continue IV diuretics>> transition to p.o. diuretics upon discharge Monitor volume status Cardiology consulted as well Monitor I's and O's, daily weight Plan to discontinue prednisone after 5-day course Will need outpatient PFTs Will also need outpatient ENT consultation for possible vocal cord dysfunction Requested speech eval Plan to discharge home today Advised to follow-up with pulmonology as outpatient Atypical chest pain Troponin negative Echo no wall motion abnormality INR therapeutic Appreciate cardiology input Cutaneous candidiasis Cellulitis groin Significant redness in groin region/left labia majora Continue topical miconazole nitrate. Received 1 dose of fluconazole 150 mg Received 3 days of ceftriaxone. Completed 5 days of doxycycline. Monitor Chronic Anemia -Hb stable around 8-10. -Indicative of iron deficiency anemia-patient reports that she has not picked this up [id number] and has been missing it for at least 2 weeks H/O CVA, at least 9 strokes in the past H/O PFO and Afib, on chronic anticoagulation with coumadin -Denies any focal weakness -PT/OT Sinus tachycardia Mild acute on Chronic diastolic CHF PFO Paroxysmal Afib -INR therapeutic Continue Coumadin Monitor INR 2.3 today Diarrhea - Reports this is increased recently, she had been on antibiotics in March for UTI as well as 2 weeks ago completed course of Bactrim -C. difficile stool culture negative. No diarrhea currently Urinary Incontinence - Continue purwick Morbid Obesity Moderate protein malnutrition -Albumin is decreased at 3.3 -Granddaughter reports that she drinks primarily Pepsi at home, minimal water intake - BMI of 59 Depression and anxiety -Continue home meds antihypertensives DVT Px: Coumadin CODE STATUS: Full code Admission and Anticipated Discharge Date Admission Date: July 15, 2023 Subjective Patient is seen and examined at bedside Feels anxious intermittently Subjectively feels no significant change from yesterday Discussed with patient's family over the phone Leg edema improved Prefers to be discharged home today Saturating well on baseline supplemental oxygen Review of Systems Review of Systems: All systems reviewed & are unremarkable except as noted in Subjective Physical Exam Physical Exam: Physical Exam: Vitals signs as noted above General Appearance:Morbidly Obese, no apparent distress Head: normocephalic, Atraumatic Eyes: normal inspection, EOMI Neck: supple, Trachea midline Respiratory/Chest: Decreased breath sounds, B/L wheezes, No accessory muscle use Cardiovascular: S1, S2, No murmur Abdomen/GI:Soft, Non tender, Bowel sounds present Extremities/Musculoskeletal:normal inspection, Trace edema Neurologic/Psych:AAOX3, grossly no focal neurological deficits Skin: normal color, warm Results & Data Results & Data Vital Signs (Past 12 Hours) Vital Signs Temp Pulse Pulse Resp BP Pulse Ox O2 Del Method 07/23/23 08:00 78 07/23/23 11:47 36.6 C 73 18 143/70 H 94 Nasal Cannula 07/23/23 11:33 75 20 97 Nasal Cannula 07/23/23 07:59 36.5 C 78 18 108/70 92 Nasal Cannula 07/23/23 07:01 71 14 92 Nasal Cannula 07/23/23 02:02 36.5 C 70 20 110/67 94 Nasal Cannula O2 Flow Rate 07/23/23 08:00 07/23/23 11:47 4 07/23/23 11:33 4 07/23/23 07:59 4 07/23/23 07:01 4 07/23/23 02:02 4 Laboratory Results [facility] 07/23/23 07/23/23 06:46 08:12 Sodium 137 Potassium TNP 3.5 Chloride 98 Carbon Dioxide 34 H BUN 31 H Creatinine 0.76 Glucose 73 Calcium 8.0 L
--- NOTE | 2023-07-23 14:05 | Discharge Summary ---
Date of Service July 23, 2023 Admission HPI Per Admitting Provider This is a 63-year-old female with PMHx of paroxysmal A-fib, chronic diastolic CHF, chronic hypoxic respiratory failure, COPD, obstructive sleep apnea, anemia, history of multiple strokes, prediabetes, hypothyroidism, depression who presents to the hospital with acute worsening shortness of breath over the past 2 to 3 days. Pt typically wears 4 L O2 at baseline, and had to increase to 5 L in the past 2- 3 days. Pt admits to having chills, no fever or sweats. She has not been sleeping well and feels wron out. Pt has nurses at home and daycare manager at home and are in the house from 8-4 and nurses come twice per week. Pt notes that she is having increased chest pressure, worse today and different, feels like she has somebody sitting on her chest. She has difficult taking deep breaths. Pt has referred pain radiating into her left arm and into jaw bilaterally. She feels this is occuring while she is short of breath. Pt has been being told by her home health nurses to come to the hospital due to more rattling, wheezing and fluid in her lungs however the patient had been refusing. Pt has hx of UTI, incontinent at baseline, denies being able to feel dysuria, has darkened urine but no hematuria. Pt has increased edema of her legs, no changes recently, but does take furosemide daily 80 mg daily and has been recently increased. At home her pulse ox sits around 88-93%. Yesterday she was hypoxic with sats at 73%. Pt has nebulizer at home but refuses to use it due to burning in her throat. She has difficulty at bedside completing full sentences due to her shortness of breath. Admission Exam Per Admitting Provider General: awake, alert, + mild distress, has difficulty completing full sentences due to shortness of breath, morbidly obese with BMI of 59.7 Head: Normocephalic, atraumatic ENT: PERRL, EOMI, no pharyngeal exudate, mucous membranes moist Chest: On 4 L NC, O2 sats 91%, dropped with minimal exertion, tight breath sounds, diffuse wheezing, restricted airflow, patient has difficulty with deep breaths Cardiac: Regular rate and rhythm, no murmur, no JVD, normal peripheral pulses, good capillary refill Abdominal: NABS x 4 quadrants, soft, nondistended, nontender to palpation, no rebound or guarding Extremities: Normal inspection, 2+ peripheral edema, nonpitting, no erythema, calfs nontender to palpation Psych: Normal mood and affect Neuro: AAO x 3, strength intact bilaterally and rated 4/5 throughout, no motor deficits, speech is clear, no peripheral sensory deficits Principal Diagnosis Acute on Chronic Hypoxic and hypercarbic respiratory Failure Acute COPD Exacerbation Acute on chronic diastolic heart failure Suspected vocal cord dysfunction Discharge Data Allergies Allergy/AdvReac Type Severity Reaction Status Date / Time aspirin Allergy Unknown TAKES Verified 07/15/23 16:00 COUMADIN salicylates AdvReac Unknown ?DUE TO Verified 07/15/23 16:00 COUMADIN? Consultations 07/15/23 16:34 ED Decision to Admit Stat 07/16/23 10:58 Consult Pulmonology Routine 07/21/23 09:21 Consult Cardiology Routine Procedures Performed Laboratory Results WBC 10.75 K/ul (4.8-10.8) 07/22/23 08:12 RBC 4.05 M/uL (4.20-5.40) L 07/22/23 08:12 Hgb 10.9 g/dl (12.0-16.0) L 07/22/23 08:12 Hct 36.1 % (37.0-47.0) L 07/22/23 08:12 MCV 89.1 fL (80.0-100.0) 07/22/23 08:12 MCH 26.9 pg (25.0-34.0) 07/22/23 08:12 MCHC 30.2 g/dL (32.0-36.0) L 07/22/23 08:12 RDW Std Deviation 63.9 fL (36.4-46.3) H 07/22/23 08:12 RDW Coeff of Ursula 19.6 % (11.5-14.5) H 07/22/23 08:12 Plt Count 522 K/uL (130-400) H 07/22/23 08:12 MPV 9.0 fL (9.4-12.4) L 07/22/23 08:12 Immature Gran % (Auto) 1.0 % 07/21/23 06:19 Neut % (Auto) 67.4 % 07/21/23 06:19 Lymph % (Auto) 20.3 % 07/21/23 06:19 [place]ster % (Auto) 10.6 % 07/21/23 06:19 Eos % (Auto) 0.6 % 07/21/23 06:19 Baso % (Auto) 0.1 % 07/21/23 06:19 Neut # (Auto) 6.71 K/uL (1.40-6.50) H 07/21/23 06:19 Lymph # (Auto) 2.02 K/uL (1.20-3.40) 07/21/23 06:19 [place]ster # (Auto) 1.06 K/uL (0.11-0.59) H 07/21/23 06:19 Eos # (Auto) 0.06 K/uL (0.00-0.50) 07/21/23 06:19 Baso # (Auto) 0.01 K/uL (0.00-0.20) 07/21/23 06:19 Immature Gran # (Auto) 0.10 K/uL (0.01-0.20) 07/21/23 06:19 Absolute Nucleated RBC 0.02 K/uL (0.00-0.12) 07/21/23 06:19 Nucleated RBC % (auto) 0.2 % 07/21/23 06:19 Polychromasia 1+ 07/18/23 05:24 Anisocytosis Present 07/18/23 05:24 Stomatocytes 2+ 07/18/23 05:24 PT 23.5 Seconds (9.0-12.0) H 07/23/23 06:52 INR 2.3 (0.9-1.1) H 07/23/23 06:52 D-Dimer < 190 ug/L FEU (0-500) 07/15/23 13:45 VBG pH 7.33 (7.36-7.41) L 07/15/23 13:45 VBG pCO2 73 mmHg (38-50) H 07/15/23 13:45 VBG pO2 26 mmHg 07/15/23 13:45 VBG HCO3 39 mmol/L 07/15/23 13:45 VBG O2 Saturation < 60.0 % 07/15/23 13:45 VBG Base Excess 9.6 mEq/L 07/15/23 13:45 Sodium 137 mmol/L (136-145) 07/23/23 06:46 Potassium 3.5 mmol/L (3.5-5.1) 07/23/23 08:12 Chloride 98 mmol/L (98-107) 07/23/23 06:46 Carbon Dioxide 34 mmol/L (21-32) H 07/23/23 06:46 Anion Gap 5 (3-11) 07/23/23 06:46 BUN 31 mg/dl (6-23) H 07/23/23 06:46 Creatinine 0.76 mg/dl (0.6-1.2) 07/23/23 06:46 Est Cr Clr Drug Dosing 108.0 ml/min 07/23/23 06:46 Est GFR ( Amer) 96.8 ml/min 07/23/23 06:46 Est GFR (Non-Af Amer) 83.5 ml/min 07/23/23 06:46 BUN/Creatinine Ratio 40.8 (10-20) H 07/23/23 06:46 Glucose 73 mg/dl (70-99(Fasting)) 07/23/23 06:46 POC Glucose 148 mg/dl (70-99) H 07/23/23 12:13 Calcium 8.0 mg/dl (8.6-10.3) L 07/23/23 06:46 Magnesium 2.6 mg/dl (1.7-2.4) H 07/22/23 08:12 Total Bilirubin 0.3 mg/dl (0.2-1.0) 07/21/23 06:19 AST 17 U/L (13-39) 07/21/23 06:19 ALT 25 U/L (7-52) 07/21/23 06:19 Alkaline Phosphatase 64 U/L (34-104) 07/21/23 06:19 Troponin I High Sens 5.1 pg/ml (0-14) 07/21/23 15:09 B-Natriuretic Peptide 204 pg/ml (0-100) H 07/15/23 15:09 Total Protein 5.9 gm/dl (6.0-8.3) L 07/21/23 06:19 Albumin 3.2 gm/dl (3.4-5.0) L 07/21/23 06:19 Globulin 2.7 gm/dl (2.5-4.0) 07/21/23 06:19 Albumin/Globulin Ratio 1.2 (0.9-2) 07/21/23 06:19 Procalcitonin < 0.05 ng/ml (0-0.5) 07/17/23 11:09 Urine Color Yellow 07/16/23 02:18 Urine Appearance Clear (Clear) 07/16/23 02:18 Urine pH 6.5 (4.5-7.5) 07/16/23 02:18 Ur Specific Sapphire 1.015 (1.000-1.030) 07/16/23 02:18 Urine Protein Negative (Negative) 07/16/23 02:18 Urine Glucose (UA) Negative (Negative) 07/16/23 02:18 Urine Ketones Negative (Negative) 07/16/23 02:18 Urine Blood Negative (Negative) 07/16/23 02:18 Urine Nitrite Negative (Negative) 07/16/23 02:18 Urine Bilirubin Negative (Negative) 07/16/23 02:18 Urine Urobilinogen Negative (Negative) 07/16/23 02:18 Ur Leukocyte Esterase Negative (Negative) 07/16/23 02:18 Stl C. cayetanensis PCR Not Detected (NotDetected) 07/16/23 02:18 Stool Rotavirus A PCR Not Detected (NotDetected) 07/16/23 02:18 Stl Adenov F 40/41 PCR Not Detected (NotDetected) 07/16/23 02:18 Stool Astrovirus (PCR) Not Detected (NotDetected) 07/16/23 02:18 Stool Campylobacter PCR Not Detected (NotDetected) 07/16/23 02:18 Stl C. diff Tox B Gene Negative Cdiff Gene (Neg) 07/16/23 02:18 Stool Cryptosporidium PCR Not Detected (NotDetected) 07/16/23 02:18 Stl E.coli Shiga Tox PCR Not Detected (NotDetected) 07/16/23 02:18 Stl Enterotoxigenic E PCR Not Detected (NotDetected) 07/16/23 02:18 Stool EPEC (PCR) Not Detected (NotDetected) 07/16/23 02:18 Stool EAEC (PCR) Not Detected (NotDetected) 07/16/23 02:18 Stl E. histolytica PCR Not Detected (NotDetected) 07/16/23 02:18 Stool Giardia Lamblia PCR Not Detected (NotDetected) 07/16/23 02:18 Stool Salmonella PCR Not Detected (NotDetected) 07/16/23 02:18 Stool Sapovirus (PCR) Not Detected (NotDetected) 07/16/23 02:18 Stl P. shigelloides PCR Not Detected (NotDetected) 07/16/23 02:18 Stl Shigella/EIEC PCR Not Detected (NotDetected) 07/16/23 02:18 St Y.enterocolitica PCR Not Detected (NotDetected) 07/16/23 02:18 Stool Vibrio (PCR) Not Detected (NotDetected) 07/16/23 02:18 Stl Vibrio cholerae PCR Not Detected (NotDetected) 07/16/23 02:18 Stl Norovirus GI/GII PCR Not Detected (NotDetected) 07/16/23 02:18 Adenovirus (PCR) Not Detected (NotDetected) 07/15/23 Unknown B. pertussis DNA (PCR) Not Detected (NotDetected) 07/15/23 Unknown B.parapertussis DNA PCR Not Detected (NotDetected) 07/15/23 Unknown C. pneumoniae DNA (PCR) Not Detected (NotDetected) 07/15/23 Unknown Coronavirus OC43 (PCR) Not Detected (NotDetected) 07/15/23 Unknown Coronavirus HKU1 (PCR) Not Detected (NotDetected) 07/15/23 Unknown Coronavirus 229E (PCR) Not Detected (NotDetected) 07/15/23 Unknown SARS-CoV-2 (PCR) Not Detected (NotDetected) 07/15/23 Unknown Coronavirus NL63 (PCR) Not Detected (NotDetected) 07/15/23 Unknown Human Metapneumovir PCR Not Detected (NotDetected) 07/15/23 Unknown Influenza Type A (PCR) Not Detected (NotDetected) 07/15/23 Unknown Influenza Type B (PCR) Not Detected (NotDetected) 07/15/23 Unknown M. pneumoniae (PCR) Not Detected (NotDetected) 07/15/23 Unknown Parainfluenza 1 (PCR) Not Detected (NotDetected) 07/15/23 Unknown Parainfluenza 2 (PCR) Not Detected (NotDetected) 07/15/23 Unknown Parainfluenza 3 (PCR) Not Detected (NotDetected) 07/15/23 Unknown Parainfluenza 4 (PCR) Not Detected (NotDetected) 07/15/23 Unknown RSV (PCR) Not Detected (NotDetected) 07/15/23 Unknown Entero/Rhino (PCR) Not Detected (NotDetected) 07/15/23 Unknown Impressions Chest X-Ray 07/21/23 09:21 XR chest 1V portable HISTORY: Chest Pain COMPARISON: Chest 07/15/2023. FINDINGS: No pneumothorax. There are low lung volumes. The cardiac silhouette remains borderline enlarged. There is no evidence for pulmonary edema. A few bibasilar linear densities favor subsegmental atelectasis. This is similar to the prior study. No new focal lung consolidations to suggest a pneumonia. There are calcifications within the aortic knob. Old, healed left-sided rib fractures again noted. IMPRESSION: No significant change compared to the prior study. No acute process. ACT 112: Negative or not required by law. Electronically signed by: Otto Hendrickson M.D. 07/21/2023 10:26 AM Hospital Course (1) COPD with exacerbation: (2) Atrial fibrillation: (3) History of stroke: (4) COPD (chronic obstructive pulmonary disease): (5) Chronic respiratory failure with hypoxia: (6) Congestive heart failure: (7) Anemia: Acute COPD Exacerbation Acute on Chronic Hypoxic and hypercarbic respiratory Failure Acute on chronic HFpEF Obesity hypoventilation syndrome DD: Cannot rule out tracheomalacia/dynamic airway collapse, vocal cord dysfunction Patient is a 63-year-old female with history of COPD on 4 L of oxygen presents to the ED with shortness of breath. --CXR:No active disease in the chest. ABG consistent with chronic respiratory acidosis. Respiratory viral panel negative. Pro-Chapincito negative EKG personally reviewed; normal sinus rhythm; no ST or T wave changes. High sensitivity troponin negative -ECHO: Mild concentric LVH. LV wall motion is normal. EF 55 to 60%. Grade 1 diastolic dysfunction. Findings not suggestive of pulmonary hypertension. -Continue nebs, prednisone, Singulair. Added Incruse Intolerance to BiPAP at night in the past due to claustrophobia Patient continues to refuse retrial of BiPAP Not a candidate for tracheostomy per pulmonology Completed 5-day course of doxycycline Appreciate pulmonology input Continue IV diuretics>> transition to p.o. diuretics upon discharge Monitor volume status Cardiology consulted as well Monitor I's and O's, daily weight Plan to discontinue prednisone after 5-day course Will need outpatient PFTs Will also need outpatient ENT consultation for possible vocal cord dysfunction Requested speech eval Plan to discharge home today Advised to follow-up with pulmonology as outpatient Atypical chest pain Troponin negative Echo no wall motion abnormality INR therapeutic Appreciate cardiology input Cutaneous candidiasis Cellulitis groin Significant redness in groin region/left labia majora Continue topical miconazole nitrate. Received 1 dose of fluconazole 150 mg Received 3 days of ceftriaxone. Completed 5 days of doxycycline. Monitor Chronic Anemia -Hb stable around 8-10. -Indicative of iron deficiency anemia-patient reports that she has not picked this up [id number] and has been missing it for at least 2 weeks H/O CVA, at least 9 strokes in the past H/O PFO and Afib, on chronic anticoagulation with coumadin -Denies any focal weakness -PT/OT Sinus tachycardia Mild acute on Chronic diastolic CHF PFO Paroxysmal Afib -INR therapeutic Continue Coumadin Monitor INR 2.3 today Diarrhea - Reports this is increased recently, she had been on antibiotics in March for UTI as well as 2 weeks ago completed course of Bactrim -C. difficile stool culture negative. No diarrhea currently Urinary Incontinence - Continue purwick Morbid Obesity Moderate protein malnutrition -Albumin is decreased at 3.3 -Granddaughter reports that she drinks primarily Pepsi at home, minimal water intake - BMI of 59 Depression and anxiety -Continue home meds antihypertensives DVT Px: Coumadin CODE STATUS: Full code Total Time Total Time Spent Total Time Spent (In Minutes): 58 minutes Discharge Plan Discharge Items Patient Disposition: Home - Home Health Services Reason For Visit: COPD EXACERBATION Discharge Diagnosis: Acute on Chronic Hypoxic and hypercarbic respiratory Failure Acute COPD Exacerbation Acute on chronic diastolic heart failure Suspected vocal cord dysfunction Activity: Per Instructions section Exercise/Sports: Wait until after follow-up appointment Non-emergency contact: Primary Care Provider and Quencher Operator Call non-emergency contact if: you have any medication questions, your symptoms worsen, your pain is concerning for you and you have a fever Follow-up/Referrals: [facility] Pulmonary Office [Other] (The Pulmonary office will contact you with a follow up appointment.) Roger Alexandra MD [Primary Care Provider] - (Date & Time 07/27/2023 3:20 PM Provider Roger Alexandra MD Department Family Practice [facility] ) Diet: Carb Consistent or DM2 and Heart Healthy Fluids: 2000ml (8 cups) Addtl Attending Provider Instructions: Follow-up with your primary care physician Dr. Alexandra on 07/27/2023 3:20 PM Follow-up with your tie cutter in 1-2 weeks Follow-up with your ENT surgeon for possible vocal cord dysfunction evaluation Follow-up with your property manager as needed --- Complete the prednisone course for 2 more days as prescribed --- Get outpatient lung function tests as recommended by your tie cutter. Seek immediate medical attention if your symptoms reoccur or worsen Please take all medications as instructed on discharge list below. Please call if you have any questions or problems. You can reach a [facility] hospitalist on duty at [facility] 24 hours a day by calling [phone] Call your Primary Care doctor if any of the following symptoms or problems start or get worse: * Shortness of breath or difficulty breathing * Wake up at night short of breath * Chest pain * Cough * Swelling of your hands, feet, or legs * More fatigued or tired with your normal activity * Palpitations - sudden fast heart beats WEIGHT * Weigh yourself every morning after using the bathroom. * Use the same scale. * Wear the same amount of clothing. * Write your weight down on a chart. * Call your Primary Care doctor if you gain more than 2-3 pounds in 1-2 days. MEDICATIONS * Use this discharge instruction sheet for medication instructions. * Take your medications at the time your doctor ordered. * Do not skip a dose of your medicines. * If you miss a dose of medicine, take it as soon as possible, but DO NOT DOUBLE A DOSE. * Read your medicine information when you get home. * Know all of the side effects of your medicine. If in doubt, ask your p harmacist * Call your Primary Care doctor's office if you have any side effects. * Be sure all of your doctors know what medicine and herbs you take (including cold, flu, and herbal medicine). Take the following with you to your follow-up doctor appointments: * Weight Chart * Medication List * List of questions Do not drink excessive alcohol, beer or wine. Pending Studies at Discharge: No Stand-Alone Forms: My [facility] [employer], Smoking Cessation Medications and DC Order Prescriptions: New Incruse Ellipta 62.5 mcg/actuation Blister With Device 1 inh inhalation DAILY Qty: 30 1RF miconazole nitrate 2 % Cream 1 applic EXT BID Qty: 28 0RF Rx Instructions: Apply at Groin/Labial region as advised prednisone 20 mg Tablet 40 mg PO DAILY Qty: 4 0RF montelukast 10 mg Tablet 10 mg PO HS Qty: 30 1RF Continued isosorbide mononitrate 30 mg tablet extended release 24 hr 30 mg PO QAM lorazepam 0.5 mg tablet 0.5 mg PO Q8 PRN (Reason: Anxiety) Rx Instructions: take 1 tab in am prn, 1 tab @ noon prn & 1 tab @ hs prn baclofen 10 mg tablet 10 mg PO TID PRN (Reason: Muscle Pain) mirtazapine 30 mg tablet 30 mg PO HS Rx Instructions: take before hs warfarin 5 mg tablet 2.5 mg PO MOWEFR@1600 albuterol sulfate 90 mcg/actuation HFA aerosol inhaler 2 puff INHALATION QID PRN (Reason: sob) albuterol sulfate 5 mg/mL Solution For Nebulization 2.5 mg INHALATION DIRECTED PRN (Reason: Shortness Of Breath Or Wheezing) cholecalciferol (vitamin D3) [Vitamin D3] 25 mcg (1,000 unit) Capsule 25 mcg PO QAM tramadol 100 mg tablet 100 mg PO Q8 PRN (Reason: .MOD-SEVERE PAIN) buspirone 10 mg tablet 20 mg PO [facility] potassium chloride 10 mEq capsule, extended release 10 meq PO [facility] omeprazole 20 mg capsule,delayed release(DR/EC) 20 mg PO [facility]HS metoprolol succinate 25 mg tablet extended release 24 hr 25 mg PO QAM fluticasone propion-salmeterol [Advair HFA] 115-21 mcg/actuation HFA aerosol inhaler 2 puff INHALATION [facility] acetaminophen-codeine 300-30 mg tablet 1 tab PO Q6 PRN (Reason: Moderate Pain (Scale Score 5-6)) solifenacin 10 mg tablet 10 mg PO QAM warfarin 5 mg tablet 5 mg PO SUTUTHSA ferrous sulfate 325 mg (65 mg iron) Tablet 325 mg PO QAM Changed furosemide [Lasix] 20 mg Tablet 20 mg PO DAILY Qty: 30 0RF Discharge Orders: Discharge Order- CHF (Routine); Ordered 07/23/23 Ordered By: Luis Curry Admission Data Admit Date/Time: 07/15/23 16:53 Attending Provider: Luis Curry Admit Provider: Mohit Singh Primary Care Provider: Roger Alexandra Other Providers: Mohit Singh ; Christoph West ; Jerry Pacheco
[2023-07-23] MEDS: WARFARIN SOD 2.5 MG TAB PO SCH (16:14)
--- OUTSIDE RECORDS SUMMARY | 2023-07-25 04:09 | External Medical Summary ---
Author Name Unknown Address Unknown Organization [id number]:[place] [place] [address] [place] [address] Laboratory Report Ordering Provider Test Date Status NOAM MOORE 07/12/2023 07:01:00 Final Observation Date Value Abnormality Reference (Units ) Status Folic Acid 07/12/2023 07:01:00 6.7 >4.5 (ng/ mL) Final Performing Location LABORATORY [facility] - [address] [place] [address]
--- OUTSIDE RECORDS SUMMARY | 2023-07-25 04:09 | External Medical Summary ---
Author Name Unknown Address Unknown Organization [id number]:LABORATORY [facility] [place] - [address] [place] [address] Laboratory Report Ordering Provider Test Date Status NOAM MOORE 07/12/2023 07:01:00 Final Observation Date Value Abnormality Reference (Units ) Status HbA1C 07/12/2023 07:01:00 6.3 Above high normal 4. 0-5.6 (%) Final Performing Location LABORATORY [facility] [place] - [address] [place] [address]
--- OUTSIDE RECORDS SUMMARY | 2023-07-25 04:09 | External Medical Summary ---
Author Name Unknown Address Unknown Organization [id number]:LABORATORY [facility] - [address] [place] [address] Laboratory Report Ordering Provider Test Date Status NOAM MOORE 07/12/2023 07:01:00 Final Observation Date Value Abnormality Reference (Units ) Status BUN 07/12/2023 07:01:00 11 6-20 (mg/dL) Final Creatinine 07/12/2023 07:01:00 0.7 0.5-1.0 (mg/dL) Final Glomerular filtration rate/1.73 sq M.predicted [Volume Rate/Area] in Serum, Plasma or Blood by Creatinine-based formula (CKD-EPI) 07/12/2023 07:01:00 >90 >=60 (mL/min) Final Performing Location LAB[facility]ATORY [facility] [place] [address]
--- OUTSIDE RECORDS SUMMARY | 2023-07-25 04:09 | External Medical Summary ---
Author Name Unknown Address Unknown Organization [id number]:[facility] [place] [address] [place] [address] Laboratory Report Ordering Provider Test Date Status NOAM MOORE 07/12/2023 07:01:00 Final Observation Date Value Abnormality Reference (Units ) Status TSH 07/12/2023 07:01:00 2.32 0.27-4.20 (uIU/mL) Final Performing Location LABORATORY [facility] - [address] [place] [address]
--- OUTSIDE RECORDS SUMMARY | 2023-07-25 04:09 | External Medical Summary ---
Author Name Unknown Address Unknown Organization [id number]:[place] [place] [address] [place] [address] Laboratory Report Ordering Provider Test Date Status NOAM MOORE 07/12/2023 07:01:00 Final Observation Date Value Abnormality Reference (Units ) Status Vitamin B12 07/12/2023 07:01:00 [id number] (pg/mL) Final Performing Location LABORATORY [facility] - [address] [place] [address]
--- OUTSIDE RECORDS SUMMARY | 2023-07-25 04:09 | External Medical Summary | Summary of Care ---
Author Name Unknown Organization [facility] Address [address] [facility] [address] Phone [phone] Care Team Providers Care Animal Behaviourist Name Role Phone Roger Alexandra MD Primary Care Provider [phone] Reason for Visit * Reason Comments Follow Up Encounter Details Date Type Department Care Team Description 07/07/2023 Office Visit Cardiology, [facility] [address] [place] [address] Jerry Pacheco, [address] [place] [address] Sinus tachycardia*; PFO (patent foramen ovale) Allergies Active Allergy Reactions Severity Noted Date Comments Aspirin Unknown 12/12/2007 von Willebrand's disease Salicylates 03/01/2000 von Willebrand's disease documented as of this encounter (statuses as of 07/07/2023) Medications Medication Sig Dispensed Refills Start Date End Date Status oxygen IN GASIndications:Chron ic hypoxemic respiratory 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 1 Each 0 2022 Active Additional Information Patient taking differently: Use 4 LPM at rest, 5 LPM with exertion and 4 LPM with sleep., Reported on 12/16/2022 Disposable Brief X-LargeIndications:O veractive bladder Attends X-Large Super Absorb Underwear 32 Each 2 09/08/2022 Active Nebulizer DeviceIndications:CO PD, group D, by GOLD 2017 classification ([facility]),Chronic hypoxemic respiratory failure ([facility]) Use with nebulized meds 1 Each 0 09/16/2022 Active Full Kit Nebulizer SetIndications:COPD, group D, by GOLD 2017 classification ([facility]),Chronic hypoxemic respiratory failure ([facility]) Use with nebulizer 1 Each 0 09/16/2022 Active ProAir HFA 108 (90 Base) MCG/ACT Inhalation Aerosol SolutionIndications: Bronchitis, complicated Inhale 2 Puffs by mouth in the morning and 2 Puffs at noon and 2 Puffs in the evening and 2 Puffs before bedtime. 18 g 1 09/29/2022 Active Albuterol Sulfate 0.63 MG/3ML Inhalation Nebulization Solution (Accuneb) Inhale 1 Vial (0.63 mg) via nebulizer every 4 hours as needed for Wheezing or Shortness of Breath. 540 mL 12 10/23/2022 Active Solifenacin Succinate 10 MG Oral Tablet (VESIcare) Take 1 Tablet by mouth in the morning. 30 Tablet 6 01/26/2023 Active Donepezil HCl 5 MG Oral Tablet (Aricept) Take 1 Tablet by mouth in the morning. Take with largest meal of the day.. 30 Tablet 2 03/11/2023 Active Potassium Chloride ER 10 MEQ Oral Capsule Extended Release take 1 capsule by mouth every morning and 1 capsule by mouth BEFORE BEDTIME 60 Capsule 5 03/15/2023 Active Mirtazapine 30 MG Oral Tablet (Remeron) Take 1.5 Tablets by mouth at bedtime. 45 Tablet 2 03/17/2023 Active Vitron-C 65-125 MG Oral Tablet (Iron-Vitamin C 65-125 mg per tab)Indications:Othe r iron deficiency anemia Take 2 Tablets by mouth in the morning. 60 Tablet 11 03/17/2023 Active Ipratropium-Albutero l 0.5-2.5 (3) MG/3ML Inhalation Solution (Duoneb) Inhale 3 ML by mouth every 6 hours as needed for wheezing. J44.9 90 mL 3 03/18/2023 Active Omeprazole 20 MG Oral Capsule Delayed Release (PriLOSEC) take 1 capsule by mouth IN THE MORNING and 1 capsule BEFORE BEDTIME 60 Capsule 5 04/05/2023 Active Ferrous Sulfate 325 (65 Fe) MG Oral Tablet (Feosol) 1 Tablet. 0 01/12/2023 Active Nystatin 258550 UNIT/GM External Powder (Nyamyc) apply to affected area twice a day 60 g 1 05/10/2023 Active Cefuroxime Axetil 500 MG Oral Tablet (Ceftin) Take 1 Tablet by mouth in the morning and 1 Tablet before bedtime. 14 Tablet 0 05/13/2023 Active Warfarin Sodium 5 MG Oral Tablet (Coumadin)Indication s:Paroxysmal atrial fibrillation (HCC) Take 0.5-1 Tablets by mouth every evening. OR DIRECTED BY COUMADIN CLINIC 90 Tablet 3 05/15/2023 Active Ramelteon 8 MG Oral Tablet (Rozerem) Take 1 Tablet by mouth at bedtime. 30 Tablet 1 05/24/2023 Active LORazepam 0.5 MG Oral Tablet (Ativan) Take 1 Tablet by mouth every 8 hours as needed for Anxiety. Do not start before June 24, 2023. 90 Tablet 1 06/24/2023 Active Baclofen 10 MG Oral Tablet (Lioresal)Indication s:Chronic bilateral low back pain without sciatica Take 1 Tablet by mouth 3 times a day as needed for Muscle spasms. 90 Tablet 0 06/21/2023 Active Furosemide 40 MG Oral Tablet (Lasix)Indications:C hronic diastolic CHF (congestive heart failure) (HCC) Take 1 Tablet by mouth in the morning and 1 Tablet before bedtime. 180 Tablet 3 06/21/2023 Active Nitrofurantoin Monohyd Macro 100 MG Oral Capsule (Macrobid) Take 1 Capsule by mouth in the morning and 1 Capsule before bedtime. With food.. 20 Capsule 0 06/24/2023 Active Acetaminophen-Codein e 300-30 MG Oral TabletIndications:Ch ronic bilateral low back pain without sciatica Take 1 Tablet by mouth every 6 hours as needed for Pain, Moderate. 120 Tablet 0 06/25/2023 Active Isosorbide Mononitrate ER 30 MG Oral Tablet Extended Release 24 Hour (Imdur) take 1 tablet by mouth once daily 30 Tablet 5 07/07/2023 Active busPIRone HCl 10 MG Oral Tablet (Buspar) Take 2 Tablets by mouth in the morning and 2 Tablets before bedtime. 120 Tablet 2 07/07/2023 Active Metoprolol Succinate ER 25 MG Oral Tablet Extended Release 24 Hour (Toprol XL) Take 1 Tablet by mouth in the morning. 30 Tablet 11 07/07/2023 Active Hospital, Clinic, or Other Facility Administered Medication Ordered Dose Route Frequency Start Date End Date Status Albuterol Sulfate (Proventil) (2.5 MG/3ML) 0.083% inhalation solution 2.5 mgIndications:COPD, group D, by GOLD 2017 classification ([facility]) 2.5 mg NEBULIZER PRN 03/03/2023 03/02/2024 Acti ve Albuterol Sulfate (Proventil) (5 MG/ML) 0.5% *conc* inhalation solution 2.5 mgIndications:COPD, group D, by GOLD 2017 classification ([facility]) 2.5 mg NEBULIZER PRN 03/03/2023 03/02/2024 Acti ve documented as of this encounter (statuses as of 07/07/2023) Active Problems Problem Noted Date Decreased functional mobility 08/28/2022 History of narcotic addiction 12/19/2021 Chronic hypoxemic respiratory failure COPD, group D, by GOLD 2017 classificati on 04/29/2021 Overview: Per COPD GOLD Classification PTSD (post-traumatic stress disorder) Chronic diastolic CHF (congestive heart failure) 10/23/2020 Overview: Noted on ECHO 10/2020 History of multiple strokes 10/17/2020 Chronic bilateral low back pain without sciatica 10/14/2020 Paroxysmal atrial fibrillation 0 Super obese 03/05/2020 Oxygen dependent 12/29/2019 Acquired hypothyroidism 04/16/2015 Idiopathic cardiomyopathy 09/15/2013 Von Willebrand disease 03/10/2013 Obstructive sleep apnea 07/05/2007 Overview: ICD-10 update of inactive term Medical home patient encounter 4 Irritable bowel syndrome with diarrhea 0 04/13/2001 Depression with anxiety documented as of this encounter (statuses as of 07/07/2023) Resolved Problems Problem Noted Date Resolved Date Body mass index (BMI) of 40.0 to 44.9 in adult 1 12/29/2019 03/05/2021 Overview: Per Obesity protocol Drug-seeking behavior 10/17/2020 04/20/2023 Non compliance w medication regimen 10/14/2020 08/28/2022 Hemiplegia 06/07/2020 10/14/2020 Moderate episode of recurrent major depressive d isorder 03/05/2020 08/28/2022 Venous stasis 04/16/2015 12/29/2019 Narcotic addiction 10/04/2014 12/19/2021 MEDICATION USE AGREEMENT 01/29/2014 020 ADVANCE DIRECTIVE INFORMATION 09/13/2013 Overview: No, Advance Directive brochure given to patient at prior appointment. Urinary, incontinence, stress female 05/08/2013 12/29/2019 Anxiety state 05/12/2012 12/29/2019 Seizure 05/02/2012 12/29/2019 Urinary incontinence 05/02/2012 12/29/2019 Overview: ICD-10 update of inactive term Benign neoplasm of colon 10/06/2010 020 Overview: adenomatous/repeat colonoscopy in 1 yr Obesity, Class I, BMI 30.0-34.9 (see actual BMI) 02/06/2010 03/05/2020 Overview: Per Obesity Taxonomy Disc disorder of lumbar region 12/19/2009 1 12/14/2019 Dyslipidemia, goal to be determined 10/24/2009 05/01/2011 Overview: Per Lipid Taxonomy. Cerebrovascular disease, arteriosclerotic, post- stroke 02/26/2009 10/17/2020 Overview: Modified per CVA protocol #8 Chest pain 01/23/2009 05/01/2011 Patent foramen ovale 12/21/2008 12/19/2021 Chest pain, non-cardiac 12/12/2007 12/29/19 20 COPD, severe 04/06/2007 05/01/2021 Acute bronchitis, antibiotics not indicated 03/1606/27/2008 SIMA (generalized anxiety disorder) 02/08/2006 08/28/2022 Atrial septal defect 02/04/2006 12/21/2008 Atrial septal aneurysm 02/04/2006 9 skilled nursing current use 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 0 06/01/2005 03/05/2021 Overview: ICD-10 update of inactive term Carotid stenosis, non-symptomatic 03/16/2005 03/14/2007 CVA 07/31/2004 02/28/2009 Overview: Modified per CVA protocol #8 ATRIAL SEPTAL ANEURYSM(aka ANEURYSM) 07/31/2004 02/04/2006 Malaise and fatigue 03/07/2004 05/01/2011 Back disorder 03/07/2004 05/02/2012 Mixed dyslipidemia 03/07/2004 10/24/2009 Overview: Per Lipid Taxonomy. CEREBROVASC DISEASE NEC 02/01/2004 12/29/19 20 Pelvic pain in female 03/26/2003 12/29/2019 OBESITY, UNSPECIFIED 07/19/2002 02/06/2010 Overview: Per Obesity Taxonomy EXT ASTHMA W-O STAT ASTH 010 Tobacco use disorder 04/23/2021 documented as of this encounter (statuses as of 07/07/2023) Immunizations Name Administration Dates Next Due H1N1 2009 Influenza, IM 12/19/2009 Pneumococcal Polysaccharide PPV23 (Pneumovax) 03/20/2009 Seasonal Influenza Virus Vac cine, Unspecified Formulation 11/11/2021,09/15/2020,10/03/2017,08/21,08/01/2014,07/30/2014,08/09/2013 ,08/03/2012,08/24/2011,08/06/2010,02/0 02/2010,09/20/2007,09/04/2003 Seasonal Influenza, PF, 6 mo ns & Above, IM , (Flulaval) 08/28/2022,11/11/2021 Seasonal Influenza, Quadriva lent, No Preserve, IM 08/21/2015 Seasonal Influenza, Split, I IV3, With Preserve, Inj 08/01/2014,08/09/2013,08/03/2012,08/24,08/06/2010,12/19/2009,09/20/2007 TDAP (age 11 and older)(Adacel) 06/27/2008 documented as of this encounter Social History Tobacco Use Types Packs/Day Years Used Date Smoking Tobacco: Former Cigarettes 1.5 32 Q uit: 2019 Smokeless Tobacco: Never Tobacco Cessation:Counseling Given: Not Answered Alcohol Use Standard Drinks/Week Comments No 0 (1 standard drink = 0.6 oz pur e alcohol) Food Insecurity Answer Date Recorded Within the past 12 months, y ou worried that your food would run out before you got money to buy more. Never true 12/29/2019 Within the past 12 months, t he food you bought just didn't last and you didn't have money to get more. Never true 12/29/2019 Sex Assigned at Date Recorded Not on file Job Start Date Occupation Industry Not on file Not on file Not on file documented as of this encounter Last Filed Vital Signs Vital Sign Reading Time Taken Comments Blood Pressure 108/72 07/07/2023 1:33 PM EDT Pulse 104 07/07/2023 1:33 PM EDT Temperature - - Respiratory Rate 18 07/07/2023 1:33 PM EDT Oxygen Saturation - - Inhaled Oxygen Concentration - - Weight - - Height - - Body Mass Index - - documented in this encounter Progress Notes * Jerry Pacheco, - 07/07/2023 1:49 PM EDT 07/07/2023 Cardiology Follow Up CHIEF COMPLAINT: Follow up, tachycardia, chest pain SUBJECTIVE: Kimberly Kendall is a 63 year old year old female follow up, tachycardia, chest pain returns in cardiology follow-up of the above concerns. She had initially been seen by the undersigned as a new patient in November, having previously followed with Dr. Deutsch of cardiology in [place]. She has a history of morbid obesity, BMI 57 kilograms/meter squared, severe oxygen-dependent COPD and an apparent history of 9 past strokes and von Willebrand's disease. She reportedly underwent nuclear stress test for the evaluation of dyspnea on exertion and atypicalchest pain in December 2016 that suggested ischemia. Cardiac catheterization performed in [place] 01/06/2017 reportedly revealed no obstructive coronary heart disease, LVEF 50% by left ventriculogram, subsequently improved to 60% on follow-up echocardiogram September,. Bilateral lower extremityedema noted the time the progress note for which treatment with furosemide and metolazone recommended at that time in 2017. As noted in my previous progress note, the diagnosis of atrial fibrillation first appears in her chart in 2009 and is associated with her Coumadin therapy. The patient however is unaware of the term atrial fibrillation. I had been unable to find any definite EKG evidence of atrial fibrillation but the patient did have a documented history of recurrent stroke events and transesophageal echocardiogram performed in [place] in 2017 revealed an atrial septal aneurysm and PFO and ongoing anticoagulation for secondary prevention of stroke was recommended. It appears that she is been on Coumadin since proximally 2003. Patient presents in her wheelchair today. She notes ongoing description of chest heaviness. Extensive ROS: All systems reviewed & are unremarkable except as noted in HPI & below Cardiovascular (chest pain/palpitations/fluttering/diaphoresis/dyspnea on exertion/paroxysmally nocturnal dyspnea):Negative Review of patient's allergies indicates: Allergen Reactions Aspirin Unknown von Willebrand's disease Salicylates von Willebrand's disease Current Outpatient Medications Medication Sig Dispense Refill oxygen IN GAS Use 2 LPM at rest, 4 LPM with exertion and with sleep. (Patient taking differently: Use 4 LPM at rest, 5 LPM with exertion and 4 LPM with sleep.) 1 Each 0 Disposable Brief X-Large Attends X-Large Super Absorb Underwear 32 Each 2 Nebulizer Device Use with nebulized meds 1 Each 0 Full Kit Nebulizer Set Use with nebulizer 1 Each 0 ProAir HFA 108 (90 Base) MCG/ACT Inhalation Aerosol Solution Inhale 2 Puffs by mouth in the morningand 2 Puffs at noon and 2 Puffs in the evening and 2 Puffs before bedtime. 18 g 1 Albuterol Sulfate 0.63 MG/3ML Inhalation Nebulization Solution (Accuneb) Inhale 1 Vial (0.63 mg) via nebulizer every 4 hours as needed for Wheezing or Shortness of Breath. 540 mL 12 Solifenacin Succinate 10 MG Oral Tablet (VESIcare) Take 1 Tablet by mouth in the morning. 30 Tablet6 Donepezil HCl 5 MG Oral Tablet (Aricept) Take 1 Tablet by mouth in the morning. Take with largest meal of the day.. 30 Tablet 2 Potassium Chloride ER 10 MEQ Oral Capsule Extended Release take 1 capsule by mouth every morning and 1 capsule by mouth BEFORE BEDTIME 60 Capsule 5 Mirtazapine 30 MG Oral Tablet (Remeron) Take 1.5 Tablets by mouth at bedtime. 45 Tablet 2 Vitron-C 65-125 MG Oral Tablet (Iron-Vitamin C 65-125 mg per tab) Take 2 Tablets by mouth in the morning. 60 Tablet 11 Ipratropium-Albuterol 0.5-2.5 (3) MG/3ML Inhalation Solution (Duoneb) Inhale 3 ML by mouth every 6 hours as needed for wheezing. J44.9 90 mL 3 Omeprazole 20 MG Oral Capsule Delayed Release (PriLOSEC) take 1 capsule by mouth IN THE MORNING and1 capsule BEFORE BEDTIME 60 Capsule 5 Ferrous Sulfate 325 (65 Fe) MG Oral Tablet (Feosol) 1 Tablet. Nystatin 782246 UNIT/GM External Powder (Nyamyc) apply to affected area twice a day 60 g 1 Cefuroxime Axetil 500 MG Oral Tablet (Ceftin) Take 1 Tablet by mouth in the morning and 1 Tablet before bedtime. 14 Tablet 0 Warfarin Sodium 5 MG Oral Tablet (Coumadin) Take 0.5-1 Tablets by mouth every evening. OR DIRECTED BY COUMADIN CLINIC 90 Tablet 3 Ramelteon 8 MG Oral Tablet (Rozerem) Take 1 Tablet by mouth at bedtime. 30 Tablet 1 LORazepam 0.5 MG Oral Tablet (Ativan) Take 1 Tablet by mouth every 8 hours as needed for Anxiety. Do not start before June 24, 2023. 90 Tablet 1 Baclofen 10 MG Oral Tablet (Lioresal) Take 1 Tablet by mouth 3 times a day as needed for Muscle spasms. 90 Tablet 0 Furosemide 40 MG Oral Tablet (Lasix) Take 1 Tablet by mouth in the morning and 1 Tablet before bedtime. 180 Tablet 3 Nitrofurantoin Monohyd Macro 100 MG Oral Capsule (Macrobid) Take 1 Capsule by mouth in the morning and 1 Capsule before bedtime. With food.. 20 Capsule 0 Acetaminophen-Codeine 300-30 MG Oral Tablet Take 1 Tablet by mouth every 6 hours as needed for Pain, Moderate. 120 Tablet 0 Isosorbide Mononitrate ER 30 MG Oral Tablet Extended Release 24 Hour (Imdur) take 1 tablet by mouthonce daily 30 Tablet 5 busPIRone HCl 10 MG Oral Tablet (Buspar) Take 2 Tablets by mouth in the morning and 2 Tablets before bedtime. 120 Tablet 2 Current Facility-Administered Medications Medication Dose Route Frequency Provider Last Rate Last Admin Albuterol Sulfate (Proventil) (2.5 MG/3ML) 0.083% inhalation solution 2.5 mg 2.5 mg Nebulizer PRSeferino Quintero MD 2.5 mg at 03/09/23 1107 Albuterol Sulfate (Proventil) (5 MG/ML) 0.5% *conc* inhalation solution 2.5 mg 2.5 mg Nebulizer PRLondon Quintero MD OBJECTIVE/PHYSICAL EXAMINATION: BP 108/72 | Pulse 104 | Resp 18 General: no acute distress and stated age Eyes: conjunctiva are pink and non-injected, sclera clear Neck: normal jugular venous pulse, no hepatojugular reflux Chest: normal shape and normal respiratory effort Lungs: Mild apical wheezing Cardiac Exam: - regular rhythm, tachycardia Abdomen: Not examined, patient in wheelchair Musculoskeletal: no gait disturbance, no weakness Extremities: no edema and no cyanosis Neuro: grossly normal exam Psych: appropriate affect and insight. Data: EKG performed 12/14/2022 reveals sinus tachycardia 113 beats per minute with nonspecific repolarization changes. Lipid Panel Results: Results for orders placed or performed in visit on 03/09/23 LIPID PANEL WITH DIRECT LDL IF TG IS HIGH Result Value Ref Range Triglycerides 180 (H) <=174 mg/dL Cholesterol 227 (H) <200 mg/dL HDL Cholesterol 60 >49 mg/dL Non-HDL Cholesterol 167 (H) <=159 mg/dL LDL Cholesterol 131 (H) <=129 mg/dL ASSESSMENT / PLAN: 63 year old year old female ICD-10-CM 1. Sinus tachycardia R00.0 2. PFO (patent foramen ovale) Q21.12 -as previously noted, I believe her tachycardia is likely physiologic and related to her underlyinglung disease. -at this time, recommend proceeding with a trial of metoprolol succinate 25 milligrams daily. -continue other medication including isosorbide mononitrate which she is been on a chronic basis, warfarin, furosemide, potassium chloride. -I do not think she would be a good candidate for treatment with a calcium channel rosio such as diltiazem due to concerns that it would cause worsening edema. DISPOSITION: Follow Up: Return in about 6 months (around 01/07/2024) for Clinic Visit. | For: Clinic Visit Jerry Pacheco DO Cardiology, [facility] [address] [facility] [place] [address] This chart was completed in part utilizing [employer] Speech Voice Recognition Software. Grammatical errors, random word insertions, prounoun errors, and incomplete sentences are an occasional consequence of this system due to software limitations, ambient noise, and hardware issues. Any formal questions or concerns about the content, text, or information contained within the body of this dictation should be directly addressed to the provider for clarification. documented in this encounter Nursing Notes * Piedad Gandhi LPN - 07/07/2023 1:32 PM EDT Examination Room: 12 Name: Kimberly Kendall Date of : (1960) Reason for Visit: Follow up Interim Hospitalization(s): Denies Problems/Concerns: Intermittent Chest heaviness mid sternal, lasting approx couple hours at a time. Chest Pain/SOB: See above [facility] is a way you can talk to your provider online through e-mail. Would you like to sign up? I can activate it for you? ALREADY ACTIVE Patient was instructed to not get up on the exam table until directed and assisted by their provider; patient is to remain seated in the chair/ wheelchair/ exam table for fall prevention and safety reasons. Patient is aware to have assistance to step down off exam table with personnel. Patient voiced full comprehension of instructions. documented in this encounter Plan of Treatment Upcoming Encounters Date Type Specialty Care Team Description 07/12/2023 Laboratory [place] [facility] [place] [facility] [address] [facility] [address] 07/13/2023 [facility] [address] [facility] [address] 07/21/2023 Telemedicine Psychiatry Hugo Alcantara MD [address] [place] [address] 07/21/2023 Office Visit Urology Juan José Walters MD [address] [place] [address] 08/02/2023 Telemedicine [facility] Sharmaine Johns PA-C [address] [place] [address] Aisha Gilliland, [address] [place] [address] 08/04/2023 Office Visit Infectious Disease Julieta Reyes MD [address] [place] [address] 01/07/2024 Office Visit Cardiology Saray Muhammad CRNP [address] [place] [address] Scheduled Procedures Name Priority Associated Diagnoses Date/Ti me COLONOSCOPY FLEXIBLE PROXIMA L DIAGNOSTIC Recall History of colonic polyps Health Maintenance Due Date Last Done Comments COVID-19 Vaccine (#1) 1960 HIV Screening 1975 Hepatitis C Screening 1978 Pneumococcal Vaccine: Pediatrics (0 to 5 Years) and At-Risk Patients (6 to 64 Years) (2 - PCV) 03/20/2010 03/20/2009 Zoster Vaccines (1 of 2) 2010 DTaP,Tdap,and Td Vaccines (2 - Td or Tdap) 06/27/2018 06/27/2008 Depression, Most Recent Score >= 10 (will fire each visit until score < 10) 04/24/2021 04/23/2021 *ADVANCE DIRECTIVE NOT ON FILE 02/16/2022 Influenza Vaccine (FLU shot) (#1) 2023 08/28/2022, 11/11/2021, 11/11/2021, Additional history exists Mammogram 09/04/2023 09/04/2022, 10/15, 04/27/2014, Additional history exists O2 ASSESSMENT COMPLETED IN PAST YEAR FOR COPD 07/02/2024 07/02/2023 Diabetes Screening 10/23/2025 10/23/2022, 0 01/15/2022, 01/08/2022, Additional history exists COLONOSCOPY-EVERY 5 YRS AGES 18-100 01/14/2028 01/13/2023, 11/12/2020, 05/22/2013, Additional history exists Lipid Panel 03/09/2028 03/09/2023, 08/15, 09/25/2015, Additional history exists Alpha-1 Antitrypsin Completed 02/16/2022 LUNG CANCER SCREENING - USE SMARTSET 27796 Completed 2023, 03/16/2022, 08/24/2018, Additional history exists GARDASIL-HPV IMMUNIZATION SERIES Aged Out No longer eligible based on patient's age to complete this topic Hepatitis B Aged Out No longer eligi ble based on patient's age to complete this topic MENINGOCOCCAL (MENACTRA/MENVEO) Aged Out No longer eligible based on patient's age to complete this topic documented as of this encounter Medical Devices Not on filedocumented as of this encounter Visit Diagnoses Diagnosis Sinus tachycardia- Primary Other specified cardiac dysrhythmias PFO (patent foramen ovale) Ostium secundum type atrial septal defect documented in this encounter Care Teams Animal Behaviourist Relationship Specialty Start Date End Date Roger Alexandra MD [address] [place] [address] PCP - General Family Medicine 12/29/19 documented as of this encounter"
--- OUTSIDE RECORDS SUMMARY | 2023-07-25 04:09 | External Medical Summary ---
Author Name Unknown Address Unknown Organization [id number][facility] [facility] [address] [place] [address] Laboratory Report Ordering Provider Test Date Status SUMAN STANFORD 07/12/2023 04:26:00 Final Observation Date Value Abnormality Reference (Units ) Status PT 07/12/2023 04:26:00 38.5 Above high normal 11 .6-15.2 (seconds) Final INR 07/12/2023 04:26:00 3.9 Above high normal 0. 8-1.2 Final Performing Location [facility] [place] [place] [address] [place] [address]
--- OUTSIDE RECORDS SUMMARY | 2023-07-25 04:09 | External Medical Summary ---
Author Name Unknown Address Unknown Organization [id number]:[facility] [place] [address] [place] [address] Laboratory Report Ordering Provider Test Date Status NOAM MOORE 07/12/2023 07:01:00 Final Observation Date Value Abnormality Reference (Units ) Status 25-OH Vitamin D total 07/12/2023 07:01:00 15 Below low normal >19 (ng/mL) Final Performing Location [facility] [place] [address] [place] [address]
--- OUTSIDE RECORDS SUMMARY | 2023-07-25 04:09 | External Medical Summary | Summary of Care ---
Author Name Unknown Organization [facility] Address [address] [facility] [address] Phone [phone] Care Team Providers Care Patient Services Coordinator Name Role Phone Roger Alexandra MD Primary Care Provider +1 [phone] Reason for Visit * Reason Comments Dosage Adjustment Via Phone (anticoag Cl inic) Encounter Details Date Type Department Care Team Description 07/13/2023 Anticoagulation Pharmacy Call Center [phone] [place] [address] [facility] [place] [address] Anticoagulation management encounter* Allergies Active Allergy Reactions Severity Noted Date Comments Aspirin Unknown 12/12/2007 von Willebrand's disease Salicylates 03/01/2000 von Willebrand's disease documented as of this encounter (statuses as of 07/13/2023) Medications Medication Sig Dispensed Refills Start Date [...] PD, group D, by GOLD 2017 classification ([facility]),Chronic hypoxemic respiratory failure ([facility]) Use with nebulized meds 1 Each 0 09/16/2022 Active Full Kit Nebulizer SetIndications:COPD, group D, by GOLD 2017 classification ([facility]),Chronic hypoxemic respiratory failure ([facility]) Use with nebulizer 1 Each 0 09/16/2022 [...] (Feosol) 1 Tablet. 0 01/12/2023 Active Nystatin 316675 UNIT/GM External Powder (Nyamyc) apply to affected [...] mgIndications:COPD, group D, by GOLD 2017 classification ([facility]) 2.5 mg NEBULIZER PRN 03/03/2023 03/02/2024 Acti ve Albuterol Sulfate (Proventil) (5 MG/ML) 0.5% *conc* inhalation solution 2.5 mgIndications:COPD, group D, by GOLD 2017 classification ([facility]) 2.5 mg NEBULIZER PRN 03/03/2023 03/02/2024 Acti ve documented as of this encounter (statuses as of 07/13/2023) Active Problems Problem Noted Date Prediabetes 07/13/2023 Decreased functional mobility 08/28/2022 History of narcotic [...] as of this encounter (statuses as of 07/13/2023) Resolved Problems Problem Noted Date Resolved Date [...] 02/04/2006 12/21/2008 Atrial septal aneurysm 02/04/2006 9 halfway current use 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 0 06/01/2005 [...] as of this encounter (statuses as of 07/13/2023) Immunizations Name Administration Dates Next Due H1N1 2009 Influenza, IM 12/19/2009 Pneumococcal Polysaccharide PPV23 (Pneumovax) 03/20/2009 Seasonal Influenza Virus Vac cine, Unspecified Formulation 11/11/2021,09/15/2020,10/03/2017,08/21,08/01/2014,07/30/2014,08/09/2013 ,08/03/2012,08/24/2011,08/06/2010,02/02/2010,09/20/2007,09/04/2003 Seasonal Influenza, PF, 6 mo ns & Above, IM , (Flulaval) 08/28/2022,11/11/2021 Seasonal Influenza, Quadriva lent, No Preserve, IM 08/21/2015 Seasonal Influenza, Split, I IV3, With Preserve, Inj 08/01/2014,08/09/2013,08/03/2012,08/24,08/06/2010,12/19/2009,09/20/2007 TDAP (age 11 and older)(Adacel) 06/27/2008 documented as of this encounter Social History Tobacco Use Types Packs/Day Years Used Date Smoking Tobacco: Former Cigarettes 1.5 32 Q uit: 2019 Smokeless Tobacco: Never Alcohol Use Standard Drinks/Week Comments No 0 [...] on file documented as of this encounter Progress Notes * DANIEL Mahajan Tech - 07/13/2023 10:07 AM EDT Contacts Type Contact Phone/Fax 07/13/2023 10:06 AM EDT Phone (Outgoing) Kimberly Kendall (Self) [phone] (M) Spoke to Patient Subjective Patient Findings Negatives: Signs/symptoms of thrombosis, Signs/symptoms of bleeding, Change in health, Change in alcohol use, Change in activity, Upcoming invasive procedure, Missed doses, Extra doses, Change in medications, Change in diet/appetite, Bruising Advised patient to contact Anticoagulation Clinic if any unusual bruising or bleeding, recent illness, changes in medication, or questions/concerns. PT/INR results, Coumadin dose instructions, and next PT/INR date communicated as noted by Pharmacist: Yes DANIEL MAHAJAN Tech 07/13/2023, 10:07 AM * Kim Mercado [facility] - 07/13/2023 9:18 AM EDT Images from the original note were not included. Coumadin Clinic (region specific) Objective Current Warfarin Dose As of 07/13/2023 Warfarin maintenance plan: 2.5 mg (5 mg x 0.5) every Mon, Fri; 5 mg (5 mg x 1) all other days INR Result As of 07/13/2023 INR goal: 2.0-3.0 INR used for dosin.9 (07/12/2023) Assessment & Plan Warfarin Plan As of 07/13/2023 Full warfarin instructions: 07/13: Hold; Otherwise 2.5 mg every Mon, Wed, Fri; 5 mg all other days Next INR check: 07/21/2023 Repeat PT/INR in 1.5 week(s) Weekly dose: decreased Additional Dosing Information: Description GML Also sent MyG after trying to call Tech to contact patient with dose instructions as noted. Kim Mercado RPh 07/13/2023, 9:18 AM documented in this encounter Plan of Treatment Upcoming Encounters Date Type Specialty Care Team Description 07/21/2023 Telemedicine Psychiatry Hugo Alcantara MD [address] [place] [address] 07/21/2023 Office Visit Urology Juan José Walters MD [address] [place] [address] 08/02/2023 Telemedicine [facility] Sharmaine Johns PA-Roz [address] [place] [address] Aisha Gilliland [address] [place] [address] 08/04/2023 Office Visit Infectious Disease Julieta Reyes MD [address] [place] [address] 01/07/2024 Office Visit Cardiology Saray Muhammad CRNP [address] [place] [address] Scheduled Procedures Name Priority Associated Diagnoses Date/Ti [...] IN PAST YEAR FOR COPD 07/02/2024 07/02/2023 HbA1c 07/12/2024 07/12/2023, 08/15, 04/19/2014, Additional history exists COLONOSCOPY-EVERY 5 YRS AGES 18-100 01/14/2028 01/13/2023, 11/12/2020, 05/22/2013, Additional history exists Lipid Panel 03/09/2028 03/09/2023, 08/15, 09/25/2015, Additional history exists Alpha-1 Antitrypsin Completed 02/16/2022 LUNG CANCER SCREENING - USE SMARTSET 17429 Completed 2023, 03/16/2022, 08/24/2018, Additional history exists [...] as of this encounter Visit Diagnoses Diagnosis Anticoagulation management encounter- Primary Encounter for therapeutic drug monitoring documented in this encounter Care Teams Patient Services Coordinator Relationship Specialty Start Date End Date Roger Alexandra MD [address] [place] [address] PCP - General Family Medicine 12/29/19 documented as of this encounter
--- OUTSIDE RECORDS SUMMARY | 2023-07-25 04:09 | External Medical Summary ---
Author Name Unknown Address Unknown Organization K01:[facility]ORY [facility] [place] [address] [place] [address] Laboratory Report Ordering Provider Test Date Status NOAM MOORE 07/12/2023 07:01:00 Final Observation Date Value Abnormality Reference (Units ) Status Iron 07/12/2023 07:01:00 17 Below low normal 33-151 (ug/dL) Final Iron-binding capacity 07/12/2023 07:01:00 388 250-425 (ug/dL) Final Transferrin Sat % 07/12/2023 07:01:00 4 Below low normal 15-55 (%) Final Performing Location [facility]ATORY [facility] - [address] [place] [address]
--- OUTSIDE RECORDS SUMMARY | 2023-07-25 04:09 | External Medical Summary | Summary of Care ---
Author Name Unknown Organization [facility] Address [address] [place] [address] Phone [phone] Care Team Providers Care Cafe Aide Name Role Phone Roger Alexandra MD Primary Care Provider [phone] Reason for Visit * Reason Onset Date Comments case management 07/07/2023 Encounter Details Date Type Department Care Team Description 07/07/2023 Shade Matcher Telephone Care Coordination [address] [place], [place] [id number] Saray Jones LSW [address] [place] [address] case management Allergies Active Allergy Reactions Severity Noted Date [...] PD, group D, by GOLD 2017 classification ([facility]),Chronic hypoxemic respiratory failure ([facility]) Use with nebulized meds 1 Each 0 09/16/2022 Active Full Kit Nebulizer SetIndications:COPD, group D, by GOLD 2017 classification ([facility]),Chronic hypoxemic respiratory failure ([facility]) Use with nebulizer 1 Each 0 09/16/2022 [...] (Feosol) 1 Tablet. 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 Pt confirmed her name and . Pt reports now is not a good time to talk and requested [facility] call back. [facility] verbalized understanding. Saray Jones TECHNICAL PUBLICATIONS MANAGER, [employer] [facility] Shade Matcher (Pronouns: she, her, hers) Care Coordination Integration home school coordinator documented in this encounter Plan of Treatment Upcoming Encounters Date Type Specialty Care Team Description 07/12/2023 Laboratory Laboratory Processing [facility] Home Draw [address] [place] [address] 07/13/2023 [facility] [address] [place] [address] 07/21/2023 Telemedicine Psychiatry Hugo Alcantara MD [address] [place] [address] 07/21/2023 Office Visit Urology Juan José Walters MD 27 [facility] [address] [facility] [place] [address] 08/02/2023 Telemedicine [facility] Sharmaine Johns PA-C [address] [place] [address] Aisha Gilliland, Community Health Air Quality Chemist [address] [place] [address] [place] [id number] 08/04/2023 Office Visit Infectious Disease Julieta Reyes MD [address] [place], [place] [phone] 01/07/2024 Office Visit Cardiology Saray Muhammad CRNP [address] [place] [address] Scheduled Procedures Name Priority Associated Diagnoses Date/Ti [...] 02/16/2022 LUNG CANCER SCREENING - USE SMARTSET 45521 Completed 2023, 03/16/2022, 08/24/2018, Additional history exists [...] Not on filedocumented as of this encounter Care Teams Cafe Aide Relationship Specialty Start Date End Date Roger Alexandra MD [address] [place] [address] PCP - General Family Medicine 12/29/19 documented as of this encounter
--- OUTSIDE RECORDS SUMMARY | 2023-07-25 04:09 | External Medical Summary | Summary of Care ---
Author Name Unknown Organization [facility] Address [address] [facility] [address] Phone [phone] Care Team Providers Care Quality Control Inspector Name Role Phone Roger Alexandra MD Primary Care Provider [phone] [phone] Reason for Visit * Reason Onset Date Comments Home Health 07/13/2023 Encounter Details Date Type Department Care Team Description 07/13/2023 Telephone Family Practice [facility] [address] [place] [address] Roger Alexandra MD [address] [place] [address] Home Health Allergies Active Allergy Reactions Severity Noted Date Comments Aspirin Unknown 12/12/2007 von Willebrand's disease Salicylates 03/01/2000 von Willebrand's disease documented as of this encounter (statuses as of 07/13/2023) Medications Medication Sig Dispensed Refills Start Date End Date Status oxygen IN GASIndications: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 1 Each 0 2022 Active Additional Information Patient taking differently: Use 4 LPM at rest, 5 LPM with exertion and 4 LPM with sleep., Reported on 12/16/2022 Disposable Brief X-LargeIndications: Overactive bladder Attends X-Large Super Absorb Underwear 32 Each 2 09/08/2022 Active Nebulizer DeviceIndications:C OPD, group D, by GOLD 2017 classification ([facility]),Chronic hypoxemic respiratory failure ([facility]) Use with nebulized meds 1 Each 0 09/16/2022 Active Full Kit Nebulizer SetIndications:COPD , group D, by GOLD 2017 classification ([facility]),Chronic hypoxemic respiratory failure ([facility]) Use with nebulizer 1 Each 0 09/16/2022 Active Albuterol Sulfate 0.63 MG/3ML Inhalation Nebulization [...] Oral Tablet (Iron-Vitamin C 65-125 mg per tab)Indications:Oth er iron deficiency anemia Take 2 Tablets by mouth in the morning. 60 Tablet 11 03/17/2023 Active Ipratropium-Albuter ol 0.5-2.5 (3) MG/3ML Inhalation Solution (Duoneb) Inhale [...] (Feosol) 1 Tablet. 0 01/12/2023 Active Nystatin 860330 UNIT/GM External Powder (Nyamyc) apply to affected area twice a day 60 g 1 05/10/2023 Active Cefuroxime Axetil 500 MG Oral Tablet (Ceftin) Take 1 Tablet by mouth in the morning and 1 Tablet before bedtime. 14 Tablet 0 05/13/2023 Active Warfarin Sodium 5 MG Oral Tablet (Coumadin)Indicatio ns:Paroxysmal atrial fibrillation (HCC) Take 0.5-1 Tablets by [...] 06/24/2023 Active Baclofen 10 MG Oral Tablet (Lioresal)Indicatio ns:Chronic bilateral low back pain without sciatica Take 1 Tablet by mouth 3 times a day as needed for Muscle spasms. 90 Tablet 0 06/21/2023 Active Furosemide 40 MG Oral Tablet (Lasix)Indications: Chronic diastolic CHF (congestive heart failure) (HCC) Take 1 Tablet by mouth in the morning and 1 Tablet before bedtime. 180 Tablet 3 06/21/2023 Active Nitrofurantoin Monohyd Macro 100 MG Oral Capsule (Macrobid) Take 1 Capsule by mouth in the morning and 1 Capsule before bedtime. With food.. 20 Capsule 0 06/24/2023 Active Acetaminophen-Codei ne 300-30 MG Oral TabletIndications:C hronic bilateral low back pain without sciatica Take [...] the morning. 30 Tablet 11 07/07/2023 Active Vitamin D3 1.25 MG (39516 UT) Oral Capsule Take 1 Capsule by mouth once a week. 12 Capsule 0 07/13/2023 3 Active ProAir HFA 108 (90 Base) MCG/ACT Inhalation Aerosol SolutionIndications :Bronchitis, complicated Inhale 2 Puffs by mouth in the morning and 2 Puffs at noon and 2 Puffs in the evening and 2 Puffs before bedtime. 18 g 5 07/13/2023 Active ProAir HFA 108 (90 Base) MCG/ACT Inhalation Aerosol SolutionIndications :Bronchitis, complicated Inhale 2 Puffs by mouth in the morning and 2 Puffs at noon and 2 Puffs in the evening and 2 Puffs before bedtime. 18 g 1 09/29/2022 3 Discontinu ed(Refill) Hospital, Clinic, or Other Facility Administered Medication [...] 02/04/2006 12/21/2008 Atrial septal aneurysm 02/04/2006 9 [facility] current use 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 0 06/01/2005 [...] Influenza Virus Vac cine, Unspecified Formulation 11/11/2021,09/15/2020,10/03/2017,08/21,08/01/2014,07/30/2014,08/09/2013 ,08/03/2012,08/24/2011,08/06/2010,/02/2010,09/20/2007,09/04/2003 Seasonal Influenza, PF, 6 mo ns & [...] encounter Miscellaneous Notes * Telephone Encounter - Gisel Giordano REGIONAL MAINTENANCE MANAGER - 07/13/2023 9:47 AM EDT Provider to address: Concerns EMELY Myers . Calling from: [facility] Report/Concerns of: Increased SOB Symptoms: sob- at rest and constant Vitals: BP 118/64, P 98 , RR 20, T 97.7, SP O2 88% 4 LPM Lung sounds --Diminished throughout with wheezing. BS --patient didn't check Weight- can't stand on the scale. Narrative: Lucia HAN just saw patient. Kimberly has increased SOB at rest, wheezing. Lungs are diminished throughout. She advised Kimberly to go to the ER, but she refuses. Right now the patient is increasing her O2 as needed. She told Lucia yesterday her SP 02 was in the 70's. Patient won't use her nebulizer, she told Lucia it caro her throat. She doesn't have a rescue inhaler. Pended new script. Patient's lower extremities +3 pitting edema bilateral. Kimberly won't let Lucia measure them. Patient continues to be none compliant. She doesn't know what her meds are or if she takes them all. Next nurse visit is , it will be a new nurse. Call back [facility] with any advice or orders at [phone] Please fax new orders to [phone] Reason for Call: Home Health Contact: Telephone Call Contact Type: Care Coordination Total Time including non face to face (minutes): 20 documented in this encounter Plan of Treatment Upcoming Encounters Date Type Specialty Care Team Description 07/21/2023 Telemedicine Psychiatry Hugo Alcantara MD [address] [place], [place] [phone] 07/21/2023 Laboratory Laboratory Processing [facility] Mobile Home Draw [address] [place] [address] 07/21/2023 Office Visit Urology Juan José Walters MD 27 [facility] [address] [place] [address] 08/02/2023 Telemedicine [facility] Sharmaine Johns PA-C [address] [place] [address] Aisha Gilliland, Community Health Extruder [address] [place] [address] [place] [address] 08/04/2023 Office Visit Infectious Disease Julieta Reyes MD [address] [place], [place] [phone] 01/07/2024 Office Visit Cardiology Saray Muhammad CRNP [address] [place] [address] Scheduled Procedures Name Priority Associated Diagnoses Date/Ti [...] 02/16/2022 LUNG CANCER SCREENING - USE SMARTSET 51601 Completed 2023, 03/16/2022, 08/24/2018, Additional history exists [...] as of this encounter Visit Diagnoses Diagnosis Bronchitis, complicated Bronchitis, not specified as acute or chronic documented in this encounter Care Teams Quality Control Inspector Relationship Specialty Start Date End Date Roger Alexandra MD [address] [place] [address] PCP - General Family Medicine 12/29/19 documented as of this encounter
--- OUTSIDE RECORDS SUMMARY | 2023-07-25 04:09 | External Medical Summary | Summary of Care ---
Author Name Unknown Organization [facility] Address [address] [place] [address] Phone [phone] Care Team Providers Care Golf Club Manager Name Role Phone Roger Alexandra MD Primary Care Provider [phone] [phone] Reason for Visit * Reason Onset Date Comments case management 07/13/2023 Encounter Details Date Type Department Care Team Description 07/13/2023 Wheat Washer Telephone Care Coordination [address] [place], [place] [phone] Saray Joens LSW [address] [place] [address] case management Allergies Active Allergy [...] PD, group D, by GOLD 2017 classification ([facility]),Chronic hypoxemic respiratory failure ([facility]) Use with nebulized meds 1 Each 0 09/16/2022 Active Full Kit Nebulizer SetIndications:COPD, group D, by GOLD 2017 classification ([facility]),Chronic hypoxemic respiratory failure ([facility]) Use with nebulizer 1 Each 0 [...] (Feosol) 1 Tablet. 0 01/12/2023 Active Nystatin 557725 UNIT/GM External Powder (Nyamyc) apply to affected [...] mgIndications:COPD, group D, by GOLD 2017 classification ([facility]) 2.5 mg NEBULIZER PRN 03/03/2023 03/02/2024 Acti ve Albuterol Sulfate (Proventil) (5 MG/ML) 0.5% *conc* inhalation solution 2.5 mgIndications:COPD, group D, by GOLD 2017 classification ([facility]) 2.5 mg NEBULIZER PRN 03/03/2023 03/02/2024 [...] * Telephone Encounter - PARVEZ Mason - 07/13/2023 9:58 AM EDT Images from the original note were not included. [facility] Goal Review Follow-up Routine Attempted Phone Call Second Attempt Call Outcome Unable to Leave Message Plan To attempt another outreach [facility] Wheat Washer (Pronouns: she, her, hers) Care Coordination Integration funeral home assistant documented in this encounter Plan of Treatment Upcoming Encounters Date Type Specialty Care Team Description 07/21/2023 Telemedicine Psychiatry Hugo Alcantara MD [address] [place] [address] 07/21/2023 Office Visit Urology Juan José Walters MD [address] [facility] [place] [address] 08/02/2023 Telemedicine [facility] Sharmaine Johns PA-C [address] [place] [address] Aisha Gilliland, [address] [place] [address] 08/04/2023 Office Visit Infectious Disease Julieta Reyes MD [address] [facility] [place] [address] 01/07/2024 Office Visit Cardiology Saray Muhammad CRNP [address] [place] [address] Scheduled Procedures Name Priority Associated Diagnoses Date/Ti [...] 02/16/2022 LUNG CANCER SCREENING - USE SMARTSET [id number] Completed 2023, 03/16/2022, 08/24/2018, Additional history exists [...] filedocumented as of this encounter Care Teams Golf Club Manager Relationship Specialty Start Date End Date Roger Alexandra MD [address] [place] [address] PCP - General Family Medicine 12/29/19 documented as of this encounter
--- OUTSIDE RECORDS SUMMARY | 2023-07-25 04:09 | External Medical Summary ---
Author Name Unknown Address Unknown Organization K01:[facility] [place] [address] [place] [address] Laboratory Report Ordering Provider Test Date Status NOAM MOORE 07/12/2023 07:01:00 Final Observation Date Value Abnormality Reference (Units ) Status WBC, Total 07/12/2023 07:01:00 5.70 4.00-10.8 0 (K/uL) Final RBC 07/12/2023 07:01:00 3.54 3.85-5.15 (M/uL) Final Hemoglobin 07/12/2023 07:01:00 9.7 Below low normal 12 .0-15.3 (g/dL) Final Performing Location [facility] [place] [address] [place] [address]
--- OUTSIDE RECORDS SUMMARY | 2023-07-25 04:09 | External Medical Summary ---
Author Name Unknown Address Unknown Organization K01:LABORATORY [place] [address] [place] [address] Laboratory Report Ordering Provider Test Date Status TERESANOAM AALIYAH 07/12/2023 07:01:00 Final Observation Date Value Abnormality Reference (Units ) Status Retic, % (auto) 07/12/2023 07:01:00 2.09 Above high normal 0.80-1.90 (%) Final Reticulocytes, Absolute 07/12/2023 07:01:00 75.4 31.3-100.1 (K/uL) Final Reticulocyte fraction, immature 07/12/2023 07:01:00 32.1 Above high normal 2.5-20.6 (%) Final Reticulocyte HGB 07/12/2023 07:01:00 23.1 Below low normal 29.7-37.4 (pg) Final Performing Location [facility] [facility] [place] [facility] [address] [address]
--- OUTSIDE RECORDS SUMMARY | 2023-07-25 04:09 | External Medical Summary ---
Author Name Unknown Address Unknown Organization K01:LABORATORY [facility] [place] [address] [facility] [place] [address] Laboratory Report Ordering Provider Test Date Status NOAM MOORE 07/12/2023 07:01:00 Final Observation Date Value Abnormality Reference (Units ) Status SYNC LEUKOCYTES IN BLOOD BY AUTOMATED COUNT 07/12/2023 07:01:00 5.70 4.00-10.80 (K/uL) Final Segs 07/12/2023 07:01:00 60.1 40.0-75.0 (%) Final Lymphs % 07/12/2023 07:01:00 27.2 18.0-42.0 (%) Final Monos 07/12/2023 07:01:00 9.5 1.0-11.0 (%) Final Eosinophils 07/12/2023 07:01:00 1.9 0.0-6.0 (%) Final Basos 07/12/2023 07:01:00 0.4 0.0-2.0 (%) Final Immature Granulocyte, Percent 07/12/2023 07:01:00 0.9 0.0-2.0 (%) Final Absolute Segs 07/12/2023 07:01:00 3.43 1.80-7.70 (K/uL) Final Lymphs, absolute 07/12/2023 07:01:00 1.55 1.00-4.80 (K/ul) Final Monos, Abs 07/12/2023 07:01:00 0.54 0.00-1.10 (K/uL) Final Eos, Abs 07/12/2023 07:01:00 0.11 0.00-0.70 (K/uL) Final Basos, Abs 07/12/2023 07:01:00 0.02 0.00-0.20 (K/uL) Final Immature Granulocytes, Number 07/12/2023 07:01:00 0.05 0.00-0.20 (K/uL) Final Performing Location LABORATORY [facility] [place] - [address] [facility] [address]
--- OUTSIDE RECORDS SUMMARY | 2023-07-25 04:09 | External Medical Summary ---
Author Name Unknown Address Unknown Organization K01:[facility] - [address] [place] [address] Laboratory Report Ordering Provider Test Date Status NOAM MOORE 07/12/2023 07:01:00 Final Observation Date Value Abnormality Reference (Units ) Status Ferritin 07/12/2023 07:01:00 9 Below low normal 13- 150 (ng/mL) Final Performing Location [facility] - [address] [place] [address]
--- OUTSIDE RECORDS SUMMARY | 2023-07-25 04:10 | External Medical Summary | Summary of Care ---
Author Name Unknown Organization [facility] Address [address] [place] [facility] [place] [address] Phone [phone] Care Team Providers Care Legal Examiner Name Role Phone Roger Alexandra MD Primary Care Provider [phone] Encounter Details Date Type Department Care Team Description 07/07/2023 Telephone Family Practice [facility] [address] [place] [address] Roger Alexandra MD [address] [place] [address] Allergies Active Allergy Reactions Severity Noted Date [...] PD, group D, by GOLD 2017 classification ([facility]),Chronic hypoxemic respiratory failure ([facility]) Use with nebulized meds 1 Each 0 09/16/2022 Active Additional Information Patient not taking.Reported on 07/02/2023 Full Kit Nebulizer SetIndications:COPD, group D, by GOLD 2017 classification ([facility]),Chronic hypoxemic respiratory failure (HCC) Use with nebulizer 1 Each 0 09/16/2022 Active Additional Information Patient not taking.Reported on 07/02/2023 ProAir HFA 108 (90 Base) MCG/ACT Inhalation [...] of Breath. 540 mL 12 10/23/2022 Active Additional Information Patient not taking.Reported on 07/02/2023 Solifenacin Succinate 10 MG Oral Tablet (VESIcare) [...] the morning. 60 Tablet 11 03/17/2023 Active Additional Information Patient not taking.Reported on 07/02/2023 Ipratropium-Albutero l 0.5-2.5 (3) MG/3ML Inhalation Solution (Duoneb) Inhale 3 ML by mouth every 6 hours as needed for wheezing. J44.9 90 mL 3 03/18/2023 Active Additional Information Patient not taking.Reported on 07/02/2023 Omeprazole 20 MG Oral Capsule Delayed Release (PriLOSEC) take 1 capsule by mouth IN THE MORNING and 1 capsule BEFORE BEDTIME 60 Capsule 5 04/05/2023 Active Ferrous Sulfate 325 (65 Fe) MG Oral Tablet (Feosol) 1 Tablet. 0 01/12/2023 Active Nystatin 877457 UNIT/GM External Powder (Nyamyc) apply to affected [...] before bedtime. 120 Tablet 2 07/07/2023 Active Hospital, Clinic, or Other Facility Administered Medication Ordered Dose Route Frequency Start Date End Date Status Albuterol Sulfate (Proventil) (2.5 MG/3ML) 0.083% inhalation solution 2.5 mgIndications:COPD, group D, by GOLD 2017 classification ([facility]) 2.5 mg NEBULIZER PRN 03/03/2023 03/02/2024 Acti ve Albuterol Sulfate (Proventil) (5 MG/ML) 0.5% *conc* inhalation solution 2.5 mgIndications:COPD, group D, by GOLD 2017 classification ([facility]) 2.5 mg NEBULIZER PRN 03/03/2023 03/02/2024 [...] 02/04/2006 12/21/2008 Atrial septal aneurysm 02/04/2006 9 [employer] current use 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 0 06/01/2005 [...] Tobacco: Former Cigarettes 1.5 32 Q uit: 2018 Smokeless Tobacco: Never Alcohol Use Standard Drinks/Week [...] encounter Miscellaneous Notes * Telephone Encounter - Kim De Guzman LPN - 07/07/2023 10:43 AM EDT Call comes from Phone triage nurse, see below. S/w Dr. Alexandra who agreed, pt should go to ER for chest pain and chest heaviness. Phone nurse will relay this to pt. * Telephone Encounter - Temi West LPN - 07/07/2023 10:12 AM EDT Provider to address: Concerns Myrna Calling from: [facility] Report/Concerns of: Left sided chest pain Symptoms: chest pain-intermittent and described pain as an aching heaviness. Vitals: BP 118/60 (did not have a large cuff to obtain- is not sure of accuracy), P 103, RR 20, T 97.8, SP O2 90% with 02 at 4 LPM, Weight 309 lbs 1-2 days ago per pt, Lung sounds wheezing throughout, BS- pt does not check BSG Narrative Pt reported that she is having left sided chest pain off an on for the last 2 days. Wheezing scattered throughout. HR will not go below 103. Pt is not weighing herself. Lucia encouraged pt to go to the ER x 3 and pt will not go unless advised by a doctor. Pt is scheduled with cardiology at 1330. Called PCP office, spoke with Mehnaz whom spoke with PCP. PCP advise ER. Made Lucia aware and she will make the pt aware. FYI- PCP. Reason for Call: No chief complaint on file. Contact: Telephone Call Contact Type: Care Coordination Total Time including non face to face (minutes): 10 documented in this encounter Plan of Treatment Upcoming Encounters Date Type Specialty Care Team Description 07/07/2023 Office Visit Cardiology Jerry Pacheco, DO [address] [facility] [place] [address] 07/12/2023 Laboratory Laboratory Processing [facility], [facility] Mobile Home Draw [address] [place] [address] 07/13/2023 [facility] [address] [place] [address] 07/21/2023 Telemedicine Psychiatry Hugo Alcantara MD [address] [place] [address] 07/21/2023 Office Visit Urology Juan José Walters MD 27 [facility] Sudars[address] [facility] [place] [id number] 08/02/2023 Telemedicine [facility] Sharmaine Johns PA-Roz [address] [place] [address] Aisha Gilliland, [address] [place] [address] 08/04/2023 Office Visit Infectious Disease Julieta Reyes MD [address] [place] [address] Scheduled Procedures Name Priority Associated Diagnoses Date/Ti [...] 02/16/2022 LUNG CANCER SCREENING - USE SMARTSET 93202 Completed 2023, 03/16/2022, 08/24/2018, Additional history exists [...] filedocumented as of this encounter Care Teams Legal Examiner Relationship Specialty Start Date End Date Roger Alexandra MD [address] [place] [address] PCP - General Family Medicine 12/29/19 documented as of this encounter
--- OUTSIDE RECORDS SUMMARY | 2023-07-25 04:10 | External Medical Summary | Summary of Care ---
Author Name Unknown Organization [facility] Address [address] [place] [address] Phone [phone] Care Team Providers Care Plug Cutting Machine Operator Name Role Phone Roger Alexandra MD Primary Care Provider [phone] Reason for Visit * Reason Onset Date Comments Medication Refill 07/07/2023 Encounter Details Date Type Department Care Team Description 07/07/2023 Refill Psychiatry, [facility] [address] [facility] [place] [address] Venkata Alcantara MD [address] [place] [address] Allergies Active Allergy Reactions Severity Noted Date Comments Aspirin Unknown 12/12/2007 von Willebrand's disease Salicylates 03/01/2000 von Willebrand's disease documented as of this encounter (statuses as of 07/07/2023) Medications Medication Sig Dispensed Refills Start Date End Date Status oxygen IN GASIndications:[employer] 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 respiratory failure (HCC),COPD, group D, [...] OPD, group D, by GOLD 2017 classification ([facility]),Chronic hypoxemic respiratory failure ([facility]) Use with nebulized meds 1 Each 0 09/16/2022 Active Additional Information Patient not taking.Reported on 07/02/2023 Full Kit Nebulizer SetIndications:COPD , group D, by GOLD 2017 classification ([facility]),Chronic hypoxemic respiratory failure ([facility]) Use with nebulizer 1 Each 0 09/16/2022 [...] Additional Information Patient not taking.Reported on 07/02/2023 Ipratropium-Albuter ol 0.5-2.5 (3) MG/3ML Inhalation Solution [...] (Feosol) 1 Tablet. 0 01/12/2023 Active Nystatin 530596 UNIT/GM External Powder (Nyamyc) apply to affected [...] before bedtime. 120 Tablet 2 07/07/2023 Active busPIRone HCl 10 MG Oral Tablet (Buspar) Take 2 Tablets by mouth in the morning and 2 Tablets before bedtime. 120 Tablet 2 04/07/2023 3 Discontinu ed(Refill) Hospital, Clinic, or Other Facility Administered Medication Ordered Dose Route Frequency Start Date End Date Status Albuterol Sulfate (Proventil) (2.5 MG/3ML) 0.083% inhalation solution 2.5 mgIndications:COPD, group D, by GOLD 2017 classification ([facility]) 2.5 mg NEBULIZER PRN 03/03/2023 03/02/2024 Acti ve Albuterol Sulfate (Proventil) (5 MG/ML) 0.5% *conc* inhalation solution 2.5 mgIndications:COPD, group D, by GOLD 2017 classification ([facility]) 2.5 mg NEBULIZER PRN 03/03/2023 03/02/2024 Acti [...] 02/04/2006 12/21/2008 Atrial septal aneurysm 02/04/2006 9 care home current use 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 0 06/01/2005 [...] Influenza Virus Vac cine, Unspecified Formulation 11/11/2021,09/15/2020,10/03/2017,08/21,08/01/2014,07/30/2014,08/09/2013 ,08/03/2012,08/24/2011,08/06/2010,0202/2010,09/20/2007,09/04/2003 Seasonal Influenza, PF, 6 mo ns & [...] encounter Miscellaneous Notes * Telephone Encounter - Venkata Alcantara MD - 07/07/2023 10:42 AM EDT Signed Prescriptions: Disp Refills busPIRone HCl 10 MG Oral Tablet (Buspar) 120 Ta*2 Sig: Take 2 Tablets by mouth in the morning and 2 Tablets before bedtime.Authorizing Provider: VENKATA ALCANTARA * Telephone Encounter - Narcisa Raines LPN - 07/07/2023 10:19 AM EDT Pharmacy requesting refill on Buspar 10mg. Medication was last filled on 04/07/23 with 2 refills. Patient last seen on 05/24/23 with return appointment scheduled for 07/21/23. Patient had 0 cancelled appointments and 0 NO SHOW appointments. documented in this encounter Plan of Treatment Upcoming Encounters Date Type Specialty Care Team Description 07/07/2023 Office Visit Cardiology Jerry Pacheco, DO [address] [place] [address] 07/12/2023 Laboratory Laboratory Processing [facility], [facility] Mobile Home Draw [address] [place] [address] 07/13/2023 [facility] [address] [place] [address] 07/21/2023 Telemedicine Psychiatry Venkata Alcantara MD [address] [place] [address] 07/21/2023 Office Visit Urology Juan José Walters MD [address] [place] [place] [address] 08/02/2023 Telemedicine [facility] Sharmaine Johns PA-C [address] [place] [address] Aisha Gilliland [facility] Car Operator [address] [place] [address] [place] [address] 08/04/2023 Office Visit Infectious Disease Julieta Reyes MD [address] [place] [address] Scheduled Procedures Name Priority Associated Diagnoses Date/Ti [...] 02/16/2022 LUNG CANCER SCREENING - USE SMARTSET 50914 Completed 2023, 03/16/2022, 08/24/2018, Additional history exists [...] filedocumented as of this encounter Care Teams Plug Cutting Machine Operator Relationship Specialty Start Date End Date Roger Alexandra MD [address] [place] [address] PCP - General Family Medicine 12/29/19 documented as of this encounter
--- OUTSIDE RECORDS SUMMARY | 2023-07-25 04:10 | External Medical Summary | Summary of Care ---
Author Name Unknown Organization [facility] Address [address] [place] [address] Phone [phone] Care Team Providers Care Universal Winding Machine Operator Name Role Phone Roger Alexnadra MD Primary Care Provider [phone] Reason for Referral * Evaluate & Treat - Unlimited Visits (Within 10 days (routine)) - Authorized Specialty Diagnoses / Procedures Referred By Anna hendrix Referred To Contact HOME CARE / Home Care Diagnoses Dysuria Chronic diastolic CHF (congestive heart failure) (HCC) Chronic hypoxemic respiratory failure (HCC) COPD, group D, by GOLD 2017 classification (HCC) Paroxysmal atrial fibrillation (HCC) Decreased functional mobility Oxygen dependent Juan José Walters MD 27 [facility] [address] [place] [address] Referral ID Status Reason Start Date Expiration Date Visits Requested Visits Authorized [id number] Authorized Specialty Services Required 06/28/2023 999 999 Question Answer Referral Priority Within 10 days (routine) Comments Documentation of Yozc-sg-Libz Encounter Addendum Patient Name: Kimberly Kendall I certify that this patient is under my care and that I, or a nurse practitioner or physician's criminal legal assistant working with me, had a [id number] encounter that meets the physician grfn-[id number] encounter requirements with this patient on: Scheduled on 07/02/23 The encounter with the patient was in whole, or in part, for the following medical condition, which is the primary reason for home health care (List medical condition): CHF, COPD, urinary incontinence I certify that, based on my findings, the following services are medically necessary home health services: Nursing To provide the following care/treatments: (All hospitalists not following the patient after discharge should complete this section): medication teaching for CHF and COPD management. Pt requires a straight cath to obtain urine sample Primary Care Physician to follow home care plan of care after discharge My clinical findings support the need for the above services because: Absenses from home require considerable and tazing effort. Further, I certify that my clinical findings support that this patient is homebound (i.e. Absences from home require considerable and taxing effort and are for medical reasons or religion services or infrequently or of short duration when for other reason) because: of dyspnea with exertion, chronic medical conditions Physician Signature: Date of Signature: Physician Printed Name: Roger Alexandra MD Reason for Visit * Reason Onset Date Comments Order Request 06/28/2023 Home health Encounter Details Date Type Department Care Team Description 06/28/2023 Telephone Urology, [facility] 132 [facility] [place] [address] Juan José Walters MD [address] [place] [address] [place] [address] Order Request (Home health ) Allergies Active Allergy Reactions Severity Noted Date Comments Aspirin Unknown 12/12/2007 von Willebrand's disease Salicylates 03/01/2000 von Willebrand's disease documented as of this encounter (statuses as of 06/28/2023) Medications Medication Sig Dispensed Refills Start Date End Date Status oxygen IN GASIndications:Chron ic hypoxemic respiratory failure (HCC),COPD, group D, by GOLD 2017 classification ([facility]) Use 2 LPM at rest, 4 LPM with exertion and with sleep. 1 Each 0 2022 Active Additional Information Patient taking differently: Use 4 LPM at rest, 5 LPM with exertion and 4 LPM with sleep., Reported on 12/16/2022 Disposable Brief X-LargeIndications:O veractive bladder Attends X-Large Super Absorb Underwear 32 Each 2 09/08/2022 Active Nebulizer DeviceIndications:CO PD, group D, by GOLD 2017 classification ([facility]),Chronic hypoxemic respiratory failure ([facility]) Use with nebulized meds 1 Each 0 09/16/2022 Active Full Kit Nebulizer SetIndications:COPD, group D, by GOLD 2017 classification ([facility]),Chronic hypoxemic respiratory failure ([facility]) Use with nebulizer 1 Each [...] of Breath. 540 mL 12 10/23/2022 Active Isosorbide Mononitrate ER 30 MG Oral Tablet Extended Release 24 Hour (Imdur) take 1 tablet by mouth daily 30 Tablet 5 01/11/2023 Active Solifenacin Succinate 10 MG Oral Tablet [...] BEFORE BEDTIME 60 Capsule 5 04/05/2023 Active busPIRone HCl 10 MG Oral Tablet (Buspar) Take 2 Tablets by mouth in the morning and 2 Tablets before bedtime. 120 Tablet 2 04/07/2023 Active Ferrous Sulfate 325 (65 Fe) MG Oral Tablet (Feosol) 1 Tablet. 0 01/12/2023 Active Nystatin 089004 UNIT/GM External Powder (Nyamyc) apply to affected [...] Pain, Moderate. 120 Tablet 0 06/25/2023 Active Hospital, Clinic, or Other Facility Administered Medication Ordered Dose Route Frequency Start Date End Date Status Albuterol Sulfate (Proventil) (2.5 MG/3ML) 0.083% inhalation solution 2.5 mgIndications:COPD, group D, by GOLD 2017 classification ([facility]) 2.5 mg NEBULIZER PRN 03/03/2023 03/02/2024 Acti ve Albuterol Sulfate (Proventil) (5 MG/ML) 0.5% *conc* inhalation solution 2.5 mgIndications:COPD, group D, by GOLD 2017 classification ([facility]) 2.5 mg NEBULIZER PRN 03/03/2023 03/02/2024 Acti ve documented as of this encounter (statuses as of 06/28/2023) Active Problems Problem Noted Date Decreased functional [...] as of this encounter (statuses as of 06/28/2023) Resolved Problems Problem Noted Date Resolved Date [...] 02/04/2006 12/21/2008 Atrial septal aneurysm 02/04/2006 9 [facility] current use 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 0 06/01/2005 [...] as of this encounter (statuses as of 06/28/2023) Immunizations Name Administration Dates Next Due H1N1 2009 Influenza, IM 12/19/2009 Pneumococcal Polysaccharide PPV23 (Pneumovax) 03/20/2009 Seasonal Influenza Virus Vac cine, Unspecified Formulation 11/11/2021,09/15/2020,10/03/2017,08/21,08/01/2014,07/30/2014,08/09/2013 ,08/03/2012,08/24/2011,08/06/2010,02/02/2010,09/20/2007,09/04/2003 Seasonal Influenza, Quadriva lent, No Preserve, 6 Mons & Above, IM 08/28/2022,11/11/2021 Seasonal Influenza, Quadriva lent, No Preserve, IM 08/21/2015 Seasonal Influenza, Split, I IV3, With Preserve, Inj 08/01/2014,08/09/2013,08/03/2012,08/24,08/06/2010,12/19/2009,09/20/2007 ,09/04/2003 TDAP (age 11 and older)(Adacel) 06/27/2008 documented [...] encounter Miscellaneous Notes * Telephone Encounter - Yara Hernandez RN - 06/28/2023 4:26 PM EDT [facility] called to report they are unable to accept the referral. Faxed to [facility]. * Addendum Note - Yara Hernandez RN - 06/28/2023 2:37 PM EDTAddended by: YARA HERNANDEZ on: 06/28/2023 02:37 PM Modules accepted: Orders * Telephone Encounter - Yara Hernandez RN - 06/28/2023 2:19 PM EDT Referral for home health placed. Will fax to [facility], unsure if they will accept patient back again. Will await reply from them * Telephone Encounter - Roger Alexandra MD - 06/28/2023 1:02 PM EDT I don't know. * Telephone Encounter - Yvonne Esquivel LPN - 06/28/2023 11:15 AM EDT Patient states unable to obtain and drop off urine culture for further work up. Patient had prior [facility] HH coming in and states that Dr Alexandra's office was in the process of getting her more visits established. At this time she does not know how to proceed. She has a video visit with Dr Walters tomorrow for a follow up. She states she has burning with urination, strong odor, and bladder pressure. She is asking me to send this message to Dr Alexandra to get further information in regards to [facility] forher. Please advise. documented in this encounter Plan of Treatment Upcoming Encounters Date Type Specialty Care Team Description 06/29/2023 Anticoagulation Pharmacy Telepharmacy, [facility] [address] [place] [address] 06/29/2023 Telemedicine Urology Juan José Walters MD 27 [facility] 270 [place] [address] 06/30/2023 Laboratory Laboratory Processing [facility], [facility] Mobile Home Draw [address] [place] [address] 07/02/2023 Telemedicine [facility] Sharmaine Johns PA-C [address] [place] [address] Aliya Brooks, Community Health Reworker [address] [place] [address] 07/07/2023 Office Visit Cardiology Jerry Pacheco, DO [address] [place] [address] 07/21/2023 Telemedicine Psychiatry Hugo Alcantara MD [address] [place] [address] 08/04/2023 Office Visit Infectious Disease Julieta Reyes MD [address] [place] [address] Scheduled Procedures Name Priority Associated Diagnoses Date/Ti me COLONOSCOPY FLEXIBLE PROXIMA L DIAGNOSTIC Recall History of colonic polyps Scheduled Referrals Name Type Priority Associated Diagnoses Orde r Schedule HOME HEALTH REFERRAL OP Referral Within 10 days (routine) Dysuria Chronic diastolic CHF (congestive heart failure) (HCC) Chronic hypoxemic respiratory failure (HCC) COPD, group D, by GOLD 2017 classification (HCC) Paroxysmal atrial fibrillation (HCC) Decreased functional mobility Oxygen dependent Ordered: 06/28/2023 Health Maintenance Due Date Last Done Comments [...] ASSESSMENT COMPLETED IN PAST YEAR FOR COPD 04/20/2024 04/20/2023 Diabetes Screening 10/23/2025 10/23/2022, 0 01/15/2022, 01/08/2022, Additional history exists COLONOSCOPY-EVERY 5 YRS AGES 18-100 01/14/2028 01/13/2023, 11/12/2020, 05/22/2013, Additional history exists Lipid Panel 03/09/2028 03/09/2023, 08/15, 09/25/2015, Additional history exists Alpha-1 Antitrypsin Completed 02/16/2022 LUNG CANCER SCREENING - USE SMARTSET [id number] Completed 2023, 03/16/2022, 08/24/2018, Additional history exists [...] as of this encounter Visit Diagnoses Diagnosis Dysuria- Primary Chronic diastolic CHF (congestive heart failure) (HCC) Chronic diastolic heart failure Chronic hypoxemic respiratory failure (HCC) Chronic respiratory failure COPD, group D, by GOLD 2017 classification (HCC) Paroxysmal atrial fibrillation (HCC) Atrial fibrillation Decreased functional mobility Other symptoms involving nervous and musculoskeletal systems Oxygen dependent Dependence on supplemental oxygen documented in this encounter Care Teams Universal Winding Machine Operator Relationship Specialty Start Date End Date Roger Alexandra MD [address] [place] [address] PCP - General Family Medicine 12/29/19 documented as of this encounter
--- OUTSIDE RECORDS SUMMARY | 2023-07-25 04:10 | External Medical Summary | Summary of Care ---
Author Name Unknown Organization [facility] Address [address] [place] [address] Phone [phone] Care Team Providers Care Is Consultant Name Role Phone Jeevan Mclean MD Primary Care Provider [phone] Reason for Visit * Reason Comments eRx-Medication Refill Encounter Details Date Type Department Care Team Description 07/06/2023 Refill Family Practice [facility] [address] [place] [address] Jeevan Mclean MD [address] [place] [id number] Allergies Active Allergy Reactions Severity Noted Date Comments Aspirin Unknown 12/12/2007 von Willebrand's disease Salicylates 03/01/2000 von Willebrand's disease documented as of this encounter (statuses as of 07/07/2023) Medications Medication Sig Dispensed Refills Start Date End Date Status oxygen IN GASIndications: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 1 Each 0 2 Active Additional Information Patient taking differently: Use 4 LPM at rest, 5 LPM with exertion and 4 LPM with sleep., Reported on 12/16/2022 Disposable Brief X-LargeIndications: Overactive bladder Attends X-Large Super Absorb Underwear 32 Each 2 2 Active Nebulizer DeviceIndications:C OPD, group D, by GOLD 2017 classification ([facility]),Chronic hypoxemic respiratory failure ([facility]) Use with nebulized meds 1 Each 0 2 Active Additional Information Patient not taking.Reported on 07/02/2023 Full Kit Nebulizer SetIndications:COPD , group D, by GOLD 2017 classification ([facility]),Chronic hypoxemic respiratory failure ([facility]) Use with nebulizer 1 Each 0 2 Active Additional Information Patient not taking.Reported on 07/02/2023 ProAir HFA 108 (90 Base) MCG/ACT Inhalation Aerosol SolutionIndications :Bronchitis, complicated Inhale 2 Puffs by mouth in the morning and 2 Puffs at noon and 2 Puffs in the evening and 2 Puffs before bedtime. 18 g 1 2 Active Albuterol Sulfate 0.63 MG/3ML Inhalation Nebulization Solution (Accuneb) Inhale 1 Vial (0.63 mg) via nebulizer every 4 hours as needed for Wheezing or Shortness of Breath. 540 mL 12 2 Active Additional Information Patient not taking.Reported on 07/02/2023 Solifenacin Succinate 10 MG Oral Tablet (VESIcare) Take 1 Tablet by mouth in the morning. 30 Tablet 6 3 Active Donepezil HCl 5 MG Oral Tablet (Aricept) Take 1 Tablet by mouth in the morning. Take with largest meal of the day.. 30 Tablet 2 3 Active Potassium Chloride ER 10 MEQ Oral Capsule Extended Release take 1 capsule by mouth every morning and 1 capsule by mouth BEFORE BEDTIME 60 Capsule 5 3 Active Mirtazapine 30 MG Oral Tablet (Remeron) Take 1.5 Tablets by mouth at bedtime. 45 Tablet 2 3 Active Vitron-C 65-125 MG Oral Tablet (Iron-Vitamin C 65-125 mg per tab)Indications:Oth er iron deficiency anemia Take 2 Tablets by mouth in the morning. 60 Tablet 11 3 Active Additional Information Patient not taking.Reported on 07/02/2023 Ipratropium-Albuter ol 0.5-2.5 (3) MG/3ML Inhalation Solution (Duoneb) Inhale 3 ML by mouth every 6 hours as needed for wheezing. J44.9 90 mL 3 3 Active Additional Information Patient not taking.Reported on 07/02/2023 Omeprazole 20 MG Oral Capsule Delayed Release (PriLOSEC) take 1 capsule by mouth IN THE MORNING and 1 capsule BEFORE BEDTIME 60 Capsule 5 3 Active busPIRone HCl 10 MG Oral Tablet (Buspar) Take 2 Tablets by mouth in the morning and 2 Tablets before bedtime. 120 Tablet 2 3 Active Ferrous Sulfate 325 (65 Fe) MG Oral Tablet (Feosol) 1 Tablet. 0 3 Active Nystatin 285938 UNIT/GM External Powder (Nyamyc) apply to affected area twice a day 60 g 1 3 Active Cefuroxime Axetil 500 MG Oral Tablet (Ceftin) Take 1 Tablet by mouth in the morning and 1 Tablet before bedtime. 14 Tablet 0 3 Active Warfarin Sodium 5 MG Oral Tablet (Coumadin)Indicatio ns:Paroxysmal atrial fibrillation (HCC) Take 0.5-1 Tablets by mouth every evening. OR DIRECTED BY [facility] 90 Tablet 3 3 Active Ramelteon 8 MG Oral Tablet (Rozerem) Take 1 Tablet by mouth at bedtime. 30 Tablet 1 3 Active LORazepam 0.5 MG Oral Tablet (Ativan) Take 1 Tablet by mouth every 8 hours as needed for Anxiety. Do not start before June 24, 2023. 90 Tablet 1 3 Active Baclofen 10 MG Oral Tablet (Lioresal)Indicatio ns:Chronic bilateral low back pain without sciatica Take 1 Tablet by mouth 3 times a day as needed for Muscle spasms. 90 Tablet 0 3 Active Furosemide 40 MG Oral Tablet (Lasix)Indications: Chronic diastolic CHF (congestive heart failure) (HCC) Take 1 Tablet by mouth in the morning and 1 Tablet before bedtime. 180 Tablet 3 3 Active Nitrofurantoin Monohyd Macro 100 MG Oral Capsule (Macrobid) Take 1 Capsule by mouth in the morning and 1 Capsule before bedtime. With food.. 20 Capsule 0 3 Active Acetaminophen-Codei ne 300-30 MG Oral TabletIndications:C hronic bilateral low back pain without sciatica Take 1 Tablet by mouth every 6 hours as needed for Pain, Moderate. 120 Tablet 0 3 Active Isosorbide Mononitrate ER 30 MG Oral Tablet Extended Release 24 Hour (Imdur) take 1 tablet by mouth once daily 30 Tablet 5 3 Active Isosorbide Mononitrate ER 30 MG Oral Tablet Extended Release 24 Hour (Imdur) take 1 tablet by mouth daily 30 Tablet 5 3 07/07/20 23 Discontinued Hospital, Clinic, or Other Facility Administered Medication Ordered Dose Route Frequency Start Date End Date Status Albuterol Sulfate (Proventil) (2.5 MG/3ML) 0.083% inhalation solution 2.5 mgIndications:COPD, group D, by GOLD 2017 classification ([facility]) 2.5 mg NEBULIZER PRN 03/03/2023 03/02/2024 Acti ve Albuterol Sulfate (Proventil) (5 MG/ML) 0.5% *conc* inhalation solution 2.5 mgIndications:COPD, group D, by GOLD 2017 classification ([facility]) 2.5 mg NEBULIZER PRN 03/03/2023 [...] 02/04/2006 12/21/2008 Atrial septal aneurysm 02/04/2006 9 alf current use 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 0 06/01/2005 [...] encounter Miscellaneous Notes * Telephone Encounter - Jeevan Mclean MD - 07/07/2023 8:26 AM EDTSigned Prescriptions: Disp Refills Isosorbide Mononitrate ER 30 MG Oral Table*30 Tab*5 Sig: take 1 tablet by mouth once daily Authorizing Provider: JEEVAN MCLEAN * Telephone Encounter - Kerry Carias [facility] - 07/07/2023 8:22 AM EDTPending Prescriptions: Disp Refills Isosorbide Mononitrate ER 30 MG Oral Table*30 Tab*5 Sig: take 1 tablet by mouth once daily * Telephone Encounter - Kerry Carias [facility] - 07/07/2023 8:21 AM EDT Unable to authorize medication refills for pended medication(s) at this time. Part of the protocol criteria used for refill authorization was not satisfied. Patient needs a heart rate below 100. Please approve if appropriate. Pulse Readings from Last 3 Encounters: 07/02/23 102 04/20/23 105 04/15/23 104 Orlin, Kerry Carias Clinical Pharmacist [facility] ([facility]) [phone] 07/07/2023, 8:21 AM * Telephone Encounter - Kerry Carias [facility] - 07/07/2023 8:21 AM EDT Did you pend patient's preferred pharmacy and medication before forwarding?yes Pharmacy: [id number] Pending Prescriptions: Disp Refills Isosorbide Mononitrate ER 30 MG Oral Tabl*30 Tab*5 Sig: take 1 tablet by mouth once daily Last Visit: 04/20/2023 (in office), 12/16/2022 (telemedicine) Next Visit: Visit date not found If no future appointments scheduled, and last appointment is greater than a year ago, please schedule patient for a follow-up appointment Last date the medication was ordered: 01/11/23 Is this request for a controlled substance?No Urine Drug Screen:No results found. However, due to the size of the patient record, not all encounters were searched. Please check Results Review for a complete set of results. Patient Phone Numbers Labs: Lab Results Component Value Date/Time CREAT 0.9 10/23/2022 09:53 AM CREAT 0.77 11/21/2021 12:00 AM CREAT 0.7 10/17/2020 03:40 PM POTASSIUM 4.6 10/23/2022 09:53 AM POTASSIUM 2.8 (A) 11/21/2021 12:00 AM POTASSIUM 4.6 10/17/2020 03:40 PM TSH 2.14 12/08/2022 01:59 PM TSH 0.66 12/29/2019 10:22 AM LDLCALC 131 (H) 03/09/2023 12:12 PM LDLCALC 111 08/24/2018 04:39 AM LDLCALC 123 05/01/2011 11:39 AM LDLDIRECT 138 (H) 02/14/2015 09:27 AM ALT 6 (L) 12/29/2019 10:22 AM HGBA1C 5.8 08/24/2018 04:39 AM HGBA1C 5.7 04/19/2014 12:08 PM documented in this encounter Plan of Treatment Upcoming Encounters Date Type Specialty Care Team Description 07/07/2023 Office Visit Cardiology Jerry Pacheco, DO [address] [place] [address] 07/12/2023 Laboratory Laboratory Processing [facility] [place] [address] [place] [address] 07/13/2023 [facility] [address] [place] [address] 07/21/2023 Telemedicine Psychiatry Hugo Alcantara MD [address] [place] [address] 07/21/2023 Office Visit Urology Juan José Walters MD [address] [place] [address] 08/02/2023 Telemedicine [facility] Sharmaine Johns PA-C [address] [place] [address] Aisha Gilliland, [facility] Orthopedic Nurse Practitioner [address] [place] [address] [place] [phone] 08/04/2023 Office Visit Infectious Disease Julieta Reyes MD [address] [place] [address] Scheduled Procedures Name Priority Associated [...] 02/16/2022 LUNG CANCER SCREENING - USE SMARTSET [id number] Completed 2023, 03/16/2022, 08/24/2018, Additional history exists [...] filedocumented as of this encounter Care Teams Is Consultant Relationship Specialty Start Date End Date Jeevan Mclean MD [address] [place] [address] PCP - General Family Medicine 12/29/19 documented as of this encounter
--- OUTSIDE RECORDS SUMMARY | 2023-07-25 04:10 | External Medical Summary | Summary of Care ---
Author Name Unknown Organization [facility] Address [address] [place] [address] Phone [phone] Care Team Providers Care Estimating Manager Name Role Phone Roger Alexandra MD Primary Care Provider [phone] Reason for Referral * Ancillary Services (Within 30 days (routine)) - Authorized Specialty Diagnoses / Procedures Referred By Contac t Referred To Contact Heel Stiffener Diagnoses Chronic diastolic CHF (congestive heart failure) (HCC) Prediabetes Vitamin D deficiency Sharmaine Johns PA-C [address] [place] [address] Referral ID Status Reason Start Date Expiration Date Visits Requested Visits Authorized [id number] Authorized Ancillary Services Required 07/02/2023 999 999 Question Answer Referral Priority Within 30 days (routine) Comments Is Patient homebound? Yes All sections of this form must be filled out completely. Forms with missing or illegible information will be returned for completion. This form should not be modified in any way. Forms that have been modified will be returned. This form may not be submitted by a home health agency. It must be complete and submitted by the ordering provider. One full business day lead time is required and service will be scheduled based on the next service day for the [facility] does not service every geographical location on a daily basis. Contact [facility] Client Services at to find out service days for a specific location. Medical Laboratory [address] [place] [address] Dawson Sanchez M.D. Director and Towel Distributor Patient Name: Kimberly Kendall : 1960 Sex: female Address [address] [facility] [place] [address] Provider: Self? Roger Alexandra MD? Diagnosis: J44.9 COPD, group D, by GOLD 2017 classification ([facility]) (primary encounter diagnosis) I50.32 Chronic diastolic CHF (congestive heart failure) ([facility]) Z99.81 Oxygen dependent I48.0 Paroxysmal atrial fibrillation ([facility]) N39.0 Recurrent UTI R73.03 Prediabetes E55.9 Vitamin D deficiency Tests Requested CBC, CMP, vit D, A1c Reason for Visit * Reason Comments [facility]: Telehealth Encounter Details Date Type Department Care Team Description 07/02/2023 Telemedicine [facility], [place] [address] [place] [address] Sharmaine Johns PA-C [address] [place] [address] Aliya Brooks, [facility] [address] [place] [address] COPD, group D, by GOLD 2017 classification ([facility])*; Chronic diastolic CHF (congestive heart failure) ([facility]); Oxygen dependent; Paroxysmal atrial fibrillation ([facility]); Recurrent UTI; Prediabetes; Vitamin D deficiency Allergies Active Allergy Reactions Severity Noted Date Comments Aspirin Unknown 12/12/2007 von Willebrand's disease Salicylates 03/01/2000 von Willebrand's disease documented as of this encounter (statuses as of 07/02/2023) Medications Medication Sig Dispensed Refills Start Date End Date Status oxygen IN GASIndications:Chron ic hypoxemic respiratory failure (HCC),COPD, group D, by GOLD 2017 classification ([facility]) Use 2 LPM at rest, [...] PD, group D, by GOLD 2017 classification ([facility]),Chronic hypoxemic respiratory failure ([facility]) Use with nebulized meds 1 Each 0 09/16/2022 Active Additional Information Patient not taking.Reported on 07/02/2023 Full Kit Nebulizer SetIndications:COPD, group D, by GOLD 2017 classification ([facility]),Chronic hypoxemic respiratory failure ([facility]) Use with nebulizer 1 Each [...] Additional Information Patient not taking.Reported on 07/02/2023 Isosorbide Mononitrate ER 30 MG Oral Tablet [...] (Feosol) 1 Tablet. 0 01/12/2023 Active Nystatin 478063 UNIT/GM External Powder (Nyamyc) apply to affected [...] mgIndications:COPD, group D, by GOLD 2017 classification ([facility]) 2.5 mg NEBULIZER PRN 03/03/2023 03/02/2024 Acti ve Albuterol Sulfate (Proventil) (5 MG/ML) 0.5% *conc* inhalation solution 2.5 mgIndications:COPD, group D, by GOLD 2017 classification ([facility]) 2.5 mg NEBULIZER PRN 03/03/2023 03/02/2024 Acti ve documented as of this encounter (statuses as of 07/02/2023) Active Problems Problem Noted Date Decreased functional [...] as of this encounter (statuses as of 07/02/2023) Resolved Problems Problem Noted Date Resolved Date [...] Obesity Taxonomy Disc disorder of lumbar region 12/19/200912/14/2019 Dyslipidemia, goal to be determined 10/24/2009 05/01/2011 [...] 02/04/2006 12/21/2008 Atrial septal aneurysm 02/04/2006 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 current use 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 0 06/01/2005 [...] as of this encounter (statuses as of 07/02/2023) Immunizations Name Administration Dates Next Due H1N1 [...] Sign Reading Time Taken Comments Blood Pressure 142/82 07/02/2023 1:00 PM EDT Pulse 102 07/02/2023 1:00 PM EDT Temperature 36.3 C (97.3 F) 07/02/2023 1:00 PM ED T Respiratory Rate 20 07/02/2023 1:00 PM EDT Oxygen Saturation 94% 07/02/2023 1:00 PM EDT Inhaled Oxygen Concentration - - Weight - - Height - - Body Mass Index - - documented in this encounter Progress Notes * Sharmaine Roberts PA-C - 07/02/2023 3:00 PM EDT [facility] Provider Telemedicine Visit Date: 07/02/2023 Time: 12:48 PM Assessment/Plan: 1. COPD, group D, by GOLD 2017 classification (HCC) Advised she needs to see pulmonology Recommended use of inhaler every 4 hours as she has diffuse wheezing on exam 2. Chronic diastolic CHF (congestive heart failure) (HCC) Patient noncompliant with sodium and fluid restrictions. Weight fluctuates do to fluid overload - CBC WITH WBC DIFFERENTIAL AND ANEMIA REFLEX WORKUP; Future - COMPREHENSIVE METABOLIC PANEL; Future - 25-HYDROXY VITAMIN D; Future - HEMOGLOBIN A1C; Future - HOME PHLEBOTOMY REFERRAL OP 3. Oxygen dependent 4 liters 4. Paroxysmal atrial fibrillation (HCC) Anticoagulated with coumadin 5. Recurrent UTI Currently on Macrobid See below 6. Prediabetes - CBC WITH WBC DIFFERENTIAL AND ANEMIA REFLEX WORKUP; Future - COMPREHENSIVE METABOLIC PANEL; Future - HEMOGLOBIN A1C; Future - HOME PHLEBOTOMY REFERRAL OP 7. Vitamin D deficiency - 25-HYDROXY VITAMIN D; Future - HOME PHLEBOTOMY REFERRAL OP Follow up plan: Will follow up in one month. Patient on day 3 of Macrobid with continual dysuria and increased urgency/frequency. Recommended switching antibiotics now and checking a urine culture. Explained concern of development of resistant organism and subsequent urosepsis. She wants to complete this course of antibiotics and will try to collect a sample. EMERSON left a hat and urine cup. Will order routine labs as it has been awhile. Last A1c was in 2018 and was 5.8. Patient leads a sedentary life style and is morbidity obese. A total of 30 minutes was spent face to face via video-based telemedicine. Subjective Patient location: HOME. I was not in a hospital or clinic location. After connecting through televideo, patient was verified with two unique identifiers. Patient (or authorized legal quality assurance representative) was then informed that this was a Telemedicine visit and being conducted confidentially over secure lines. Methods to assure confidentiality were taken. Patient acknowledged consent and understanding of privacy and security of the Telemedicine visit. The patient agreed to participate. Reason for Visit: Initial Visit Current Concerns: Kimberly Kendall is a 63 year old female seen today for a [facility] Telemedicine Provider Visit. Date of last known acute care visit: 05/24/23 with psychiatry Reason for last known acute care visit: Patient referred to me by CM as she has difficulty getting to appointment. She has a history of COPD and is oxygen dependent. Cardiac history includes heart failure and A.fib. She is managed on Coumadin and Lasix. There was concern for UTI and PCP recently prescribed Macrobid. Patient was unable toprovide a urine sample. Today's concerns are: Patient states she is doing ok. She is mostly homebound and ambulates very little in her house. Shemaintains on 4 liters of oxygen. No CP/SOB or GUTHRIE outside of her usual. No changes in cough or sputum production. She can't use nebulizer because they make her chest burn but she is ok using the albuterol inhaler. She states she follows with Pulmonology but is unsure when she saw them last. She hascaregiver support through the day -. She states she has urinary incontinence at baseline. She hasbeen having dysuria and increased urgency/frequency to go. She is on day 3 of Macrobid with little improvement of symptoms. She admits to getting frequent UTI's in the past. No vaginal yeast symptoms. No changes in appetite. She does not monitor salt or fluid intake. She admits to eating a lot of chips. She fluctuates with weight and edema. Last week she was 323 lbs and this week she is 310 lbs. She feels the edema she has today is near her baseline. ROS: See HPI Objective Physical Exam: BP 142/82 | Pulse 102 | Temp 36.3 C (97.3 F) (Infrared ) | Resp 20 | SpO2 94% Previous Wts: Wt Readings from Last 5 Encounters: 04/15/23 (!) 142.7 kg (314 lb 8 oz) 03/15/23 (!) 137.2 kg (302 lb 8 oz) 03/11/23 (!) 138.8 kg (306 lb) 03/09/23 (!) 139.6 kg (307 lb 12.2 oz) 12/17/22 133.4 kg (294 lb) Previous BPs: BP Readings from Last 5 Encounters: 04/20/23 122/70 04/15/23 118/68 03/11/23 125/75 03/09/23 132/76 12/17/22 134/80 Physical Exam Constitutional: General: She is not in acute distress. HENT: Head: Normocephalic and atraumatic. Nose: Nose normal. Mouth/Throat: Pharynx: Oropharynx is clear. Eyes: Extraocular Movements: Extraocular movements intact. Conjunctiva/sclera: Conjunctivae normal. Cardiovascular: Rate and Rhythm: Normal rate and regular rhythm. Pulmonary: Effort: Pulmonary effort is normal. No respiratory distress. Comments: Diffuse wheezing Musculoskeletal: Comments: Mild edema noted to the ankle region bilaterally Neurological: General: No focal deficit present. Mental Status: She is alert and oriented to person, place, and time. Diagnostic Data Review: Hematology Lab Results Component Value Date/Time WBC AUTO - [facility] 7.10 03/09/2023 12:12 PM WBC AUTO - [facility] 7.42 12/08/2022 01:59 PM WBC AUTO - [facility] 5.65 01/15/2022 05:45 AM WBC AUTO - [facility] 7.25 10/17/2020 03:40 PM WBC AUTO - [facility] 8.07 12/29/2019 10:22 AM WBC AUTO - [facility] 9.78 03/17/2016 03:23 PM Lab Results Component Value Date/Time HGB - [facility] 11.3 (L) 03/09/2023 12:12 PM HGB - [facility] 10.2 (L) 12/08/2022 01:59 PM HGB - [facility] 10.6 (L) 01/15/2022 05:45 AM HGB - [facility] 12.2 10/17/2020 03:40 PM HGB - [facility] 14.1 12/29/2019 10:22 AM HGB - [facility] 14.0 03/17/2016 03:23 PM Lab Results Component Value Date/Time HCT - [facility] 38.7 03/09/2023 12:12 PM HCT - [facility] 35.4 (L) 12/08/2022 01:59 PM HCT - [facility] 33.7 (L) 01/15/2022 05:45 AM HCT - [facility] 39.5 10/17/2020 03:40 PM HCT - [facility] 44.1 12/29/2019 10:22 AM HCT - [facility] 43.3 03/17/2016 03:23 PM Lab Results Component Value Date/Time PLATELET AUTO - [facility] 411 (H) 03/09/2023 12:12 PM PLATELET AUTO - [facility] 568 (H) 12/08/2022 01:59 PM PLATELET AUTO - [facility] 318 01/15/2022 05:45 AM PLATELET AUTO - [facility] 385 10/17/2020 03:40 PM PLATELET AUTO - [facility] 399 12/29/2019 10:22 AM PLATELET AUTO - [facility] 379 03/17/2016 03:23 PM Lab Results Component Value Date/Time IRON - [facility] 26 (L) 03/09/2023 12:12 PM IRON - [facility] 37 05/08/2015 03:40 PM Lab Results Component Value Date/Time TRANSFERRIN SATURATION PERCENT - [facility] 7 (L) 03/09/2023 12:12 PM No results found for: TRANSFERRIN - [facility] Lab Results Component Value Date/Time VITAMIN B12 - [facility] 338 05/01/2021 10:11 AM VITAMIN B12 - [facility] 397 08/21/2015 11:59 AM Chemistry/Renal Lab Results Component Value Date/Time SODIUM - [facility] 141 10/23/2022 09:53 AM SODIUM - [facility] 140 01/15/2022 05:45 AM SODIUM - [facility] 142 10/17/2020 03:40 PM SODIUM - [facility] 143 12/29/2019 10:22 AM Lab Results Component Value Date/Time POTASSIUM - [facility] 4.6 10/23/2022 09:53 AM POTASSIUM - [facility] 3.9 01/15/2022 05:45 AM POTASSIUM - [facility] 4.6 10/17/2020 03:40 PM POTASSIUM - [facility] 4.0 12/29/2019 10:22 AM Lab Results Component Value Date/Time PHOSPHORUS - [facility] 2.9 03/24/2005 10:42 AM Lab Results Component Value Date/Time MAGNESIUM - [facility] 2.2 05/25/2016 10:30 AM MAGNESIUM - [facility] 2.2 03/24/2005 10:42 AM Lab Results Component Value Date/Time BUN - [facility] 19 10/23/2022 09:53 AM BUN - [facility] 21 (H) 01/15/2022 05:45 AM BUN - [facility] 30 (H) 01/08/2022 06:57 AM BUN - [facility] 10 10/17/2020 03:40 PM BUN - [facility] 14 12/29/2019 10:22 AM BUN - [facility] 15 05/25/2016 10:30 AM Lab Results Component Value Date/Time CREATININE - [facility] 0.9 10/23/2022 09:53 AM CREATININE - [facility] 0.7 01/15/2022 05:45 AM CREATININE - [facility] 0.7 01/08/2022 06:57 AM CREATININE - [facility] 0.7 10/17/2020 03:40 PM CREATININE - [facility] 0.7 12/29/2019 10:22 AM CREATININE - [facility] 0.6 05/25/2016 10:30 AM Lab Results Component Value Date/Time ESTIMATED GLOMERULAR FILTRATION RATE - [facility] 74 10/23/2022 09:53 AM ESTIMATED GLOMERULAR FILTRATION RATE - [facility] >90 01/15/2022 05:45 AM ESTIMATED GLOMERULAR FILTRATION RATE - [facility] >90 01/08/2022 06:57 AM ESTIMATED GLOMERULAR FILTRATION RATE - [facility] >60.0 10/17/2020 03:40 PM ESTIMATED GLOMERULAR FILTRATION RATE - [facility] >60.0 12/29/2019 10:22 AM ESTIMATED GLOMERULAR FILTRATION RATE - [facility] >60.0 05/25/2016 10:30 AM ESTIMATED GLOMERULAR FILTRATION RATE - [facility] >60.0 12/01/2013 09:40 AM ESTIMATED GLOMERULAR FILTRATION RATE - [facility] >60.0 10/06/2013 11:03 AM ESTIMATED GLOMERULAR FILTRATION RATE - [facility] >60.0 05/17/2013 11:16 AM No results found for: PTH - [facility] Liver Lab Results Component Value Date/Time AST - [facility] 13 12/29/2019 10:22 AM AST - [facility] 16 03/17/2016 03:23 PM Lab Results Component Value Date/Time ALT - [facility] 6 (L) 12/29/2019 10:22 AM ALT - [facility] 9 (L) 03/17/2016 03:23 PM Lab Results Component Value Date/Time ALKALINE PHOSPHATASE - [facility] 75 12/29/2019 10:22 AM ALKALINE PHOSPHATASE - [facility] 104 03/17/2016 03:23 PM Lab Results Component Value Date/Time BILIRUBIN, DIRECT - [facility] 0.1 11/19/2000 12:26 PM BILIRUBIN, TOTAL - [facility] 0.2 12/29/2019 10:22 AM BILIRUBIN, URINE - [facility] Negative 12/23/2022 12:31 PM BILIRUBIN, URINE - [facility] NEGATIVE 02/14/2015 09:28 AM Cardiac Lab Results Component Value Date/Time PRO BNP 337 (H) 10/17/2020 03:40 PM Lab Results Component Value Date/Time LEFT VENTRICULAR EJECTION FRACTION 55 10/22/2020 02:22 PM Lab Results Component Value Date/Time HDL CHOLESTEROL - [facility] 60 03/09/2023 12:12 PM HDL CHOLESTEROL - [facility] 63 (H) 05/01/2011 11:39 AM Lab Results Component Value Date/Time NON-HDL CHOLESTEROL - [facility] 167 (H) 03/09/2023 12:12 PM Endocrine Lab Results Component Value Date/Time HEMOGLOBIN A1C - [facility] 5.7 04/19/2014 12:08 PM HEMOGLOBIN A1C - [facility] 5.9 09/10/1999 04:45 PM No results found for: ESTIMATED AVERAGE GLUCOSE - [facility] Lab Results Component Value Date/Time TSH - [facility] 2.14 12/08/2022 01:59 PM TSH - [facility] 3.40 12/05/2021 06:33 AM TSH - [facility] 0.66 12/29/2019 10:22 AM TSH - [facility] 2.08 03/26/2016 01:00 PM Lab Results Component Value Date/Time T4, FREE - [facility] 0.65 (L) 03/26/2016 01:00 PM Medication Review: Current Outpatient Medications Medication Sig Dispense Refill [...] or Shortness of Breath. 540 mL 12 Isosorbide Mononitrate ER 30 MG Oral Tablet Extended Release 24 Hour (Imdur) take 1 tablet by mouthdaily 30 Tablet 5 Solifenacin Succinate 10 MG Oral Tablet (VESIcare) [...] and1 capsule BEFORE BEDTIME 60 Capsule 5 busPIRone HCl 10 MG Oral Tablet (Buspar) Take 2 Tablets by mouth in the morning and 2 Tablets before bedtime. 120 Tablet 2 Ferrous Sulfate 325 (65 Fe) MG Oral Tablet (Feosol) 1 Tablet. Nystatin [id number] UNIT/GM External Powder (Nyamyc) apply to affected [...] needed for Pain, Moderate. 120 Tablet 0 Current Facility-Administered Medications Medication Dose Route Frequency Provider Last Rate Last Admin Albuterol Sulfate (Proventil) (2.5 MG/3ML) 0.083% inhalation solution 2.5 mg 2.5 mg Nebulizer PRN Juan Quintero MD 2.5 mg at 03/09/23 1107 Albuterol Sulfate (Proventil) (5 MG/ML) 0.5% *conc* inhalation solution 2.5 mg 2.5 mg Nebulizer PRLondon Quintero MD Mobility Evaluation: MACH10 Assessment: Assistive Devices Used in the Home: Walker (standard or rollator) Recent Falls: Falls in the last 6 months: No SDoH: DME (Durable Medical Equipment) needs [employer] / Assistance with ADLs and Self-Care Routine Transportation Urgent Transportation Social Isolation Behavioral Health needs Sharmaine Roberts PA-C 12:48 PM *Communication sent to PCP (via [email or web address] if [facility]), Population Health Care Team members, relevant Specialty Care Physicians* * Aliya Brooks, [facility] - 07/02/2023 1:12 PM EDT [facility] Visit Date: 07/02/2023 Time: 1:13 PM Name: Kimberly Kendall : 1960 Kimberly was sitting in her lift chair when I arrived. She was watching her sop operas when I arrived. Wearing 4 L of O2 at all times. 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 Composite Technician needed: No. COVID-19 screening completed: Yes Vitals: Vital signs completed: Yes, vital signs within normal range. BP 142/82 | Pulse 102 | Temp 36.3 C (97.3 F) (Infrared ) | Resp 20 | SpO2 94% Condition Changes: Changes in health or social status since last visit -being treated for a uti currently The patient has new concerns since last visit: No Progress towards goals since last visit: Goals not established at this time Medications: Medication review completed? No, provider reviewed Does the patient have barriers to medication adherence? No. Fills at [facility] Fills weekly pill box Caregivers help dispense medications Patient reports difficulty paying for medications or might in the future: No. Telehealth: This is a telehealth visit: Yes. Type of telehealth visit: Enrollment Visit conducted with: Physician/AP Symptoms Surveys and Evaluations: MAHC10 completed this visit: Yes. Score is 4 or more? Yes, notified Provider/Face And Fill Packer Last flowsheet values for MAHC10: Age 65+: 0 (07/02/2023 1:00 PM) Diagnosis (3 or more co-existing): 1 (07/02/2023 1:00 PM) Prior history of falls within 3 months: 0 (07/02/2023 1:00 PM) Incontinence: 1 (07/02/2023 1:00 PM) Visual impairment: 0 (07/02/2023 1:00 PM) Impaired functional mobility: 1 (07/02/2023 1:00 PM) Environmental hazards: 0 (07/02/2023 1:00 PM) Poly Pharmacy (4 or more prescriptions - any type): 1 (07/02/2023 1:00 PM) Pain affecting level of function: 1 (07/02/2023 1:00 PM) Cognitive impairment: 0 (07/02/2023 1:00 PM) Score - a score of 4 or more is considered at risk for fallin (07/02/2023 1:00 PM) Home Safety Does member identify any safety issues related to entering or exiting their home? No Does the patient need a wheelchair ramp to access the home? No Snow/ice removal assistance available? Yes Is there adequate lighting? Yes Are there railings on stairs? N/A Do sidewalks appear to be in good repair? N/A Does member identify any safety issues related to the interior of their home? No If durable medical equipment is used, halls and doorways easy to navigate? Yes Are there trip hazards in the home? No Are there working smoke detectors/CO2 detectors? Yes Is a health condition present or an air quality concern that an air conditioner or other cooling device will help? N/A Do stairs in the home have railings? N/A Is there a medical alert or phone near patient? Yes Are walkways clear and well lit? Yes Does member identify any safety issues related to utilizing or accessing the bathroom in their home? No Does bathroom have grab bars needed? Yes The patient reports needing help getting on and off the toilet? Yes Does the patient report needing help bathing? Yes Are there any other identified issues/needs? No. If yes specify: Social Determinants of Health: Safety: Patient reports feeling unsafe in their home: No. Housing: Patient reports they are at risk of becoming homeless: No. Home/Living situation: Patient lives alone: Yes Bathroom is located main level Bedroom is located main level Patient has to go up and down steps: No. Patient receives help from family/friends/neighbors/community agencies etc.: Yes. Type of help the patient receives: caregivers Patient perceives the help they receive as adequate: Yes. DME: DME used: Walker Patient has concerns related to DME: No. Financial: Patient reports experiencing a financial hardship: No. Employment: Patient is unemployed or without regular income: No. Utilities: Patient reports difficulty paying heating, water, or electric bill: No. Transportation: Patient drives: No. Does anyone drive patient to appointments and shopping? Yes. Patient receives community or public transportation assistance: No. Patient reports trouble getting a ride to medical visits or work: Never True. Clothing: Patient reports being unable to get clothing when it was really needed: No. Food insecurity: Patient has concerns surrounding meals/food: No. Within the past 12 months patient worried food would run out before having money to buy more: Never True. Within the past 12 months the food patient bought did not last and did not have money to get more: Never True Food is needed for this week: No. Caregiver/Childcare: Patient feels overwhelmed with taking care of a child, family member or friend: No. If caregiver is present, patient reports adequate support: No. Specify plan/referrals/care team members notified: Connections: How often do you feel lonely or isolated from those around you? Never. Plan: Reinforced fall prevention and safety. Reviewed the providers poc for Kimberly. Left UA collection supplies and hat for her. Follow Up: Patient encouraged to call the intake phone number for all urgent but not emergent issues. Scheduled to follow up with patient in prn. Aliya Brooks [facility] 07/02/2023 1:13 PM Electronically signed by Aliya Brooks [facility] at 07/02/2023 3:24 PM EDT documented in this encounter Plan of Treatment Upcoming Encounters Date Type Specialty Care Team Description 07/07/2023 Office Visit Cardiology Jerry Pacheco, DO [address] [place] [address] 07/12/2023 Laboratory Laboratory [place] [facility] [place] [address] [place], [place] [id number] 07/13/2023 [facility] [address] [place] [address] 07/21/2023 Telemedicine Psychiatry Hugo Alcantara MD [address] [place] [address] 07/21/2023 Office Visit Urology Juan José Walters MD [address] [place] [address] 08/02/2023 Telemedicine [facility] Sharmaine Johns PA-C [address] [place] [address] Aisha Gilliland [facility] [address] [place] [address] [place] [address] 08/04/2023 Office Visit Infectious Disease Julieta Reyes MD [address] [place] [address] Scheduled Orders Name Type Priority Associated Diagnoses Orde r Schedule CBC WITH WBC DIFFERENTIAL AND ANEMIA REFLEX WORKUP Lab Routine Chronic diastolic CHF (congestive heart failure) (HCC) Prediabetes Expected: 07/02/2023 (Approximate), Expires: 07/02/2024 COMPREHENSIVE METABOLIC PANEL Lab Routine Chronic diastolic CHF (congestive heart failure) (HCC) Prediabetes Expected: 07/02/2023 (Approximate), Expires: 07/01/2024 25-HYDROXY VITAMIN D Lab Routine Chronic diastolic CHF (congestive heart failure) (HCC) Vitamin D deficiency Expected: 07/02/2023 (Approximate), Expires: 07/01/2024 HEMOGLOBIN A1C Lab Routine Chronic diastolic CHF (congestive heart failure) (HCC) Prediabetes Expected: 07/02/2023 (Approximate), Expires: 07/01/2024 Scheduled Procedures Name Priority Associated Diagnoses Date/Ti me COLONOSCOPY FLEXIBLE PROXIMA L DIAGNOSTIC Recall History of colonic polyps Scheduled Referrals Name Type Priority Associated Diagnoses Orde r Schedule HOME PHLEBOTOMY REFERRAL OP Referral Within 30 days (routine) Chronic diastolic CHF (congestive heart failure) (HCC) Prediabetes Vitamin D deficiency Ordered: 07/02/2023 Health Maintenance Due Date Last Done Comments [...] 02/16/2022 LUNG CANCER SCREENING - USE SMARTSET [id number] Completed 2023, 03/16/2022, 08/24/2018, Additional history exists [...] as of this encounter Visit Diagnoses Diagnosis COPD, group D, by GOLD 2017 classification (HCC)- Primary Chronic diastolic CHF (congestive heart failure) (HCC) Chronic diastolic heart failure Oxygen dependent Dependence on supplemental oxygen Paroxysmal atrial fibrillation (HCC) Atrial fibrillation Recurrent UTI Urinary tract infection, site not specified Prediabetes Other abnormal glucose Vitamin D deficiency Unspecified vitamin D deficiency documented in this encounter Care Teams Estimating Manager Relationship Specialty Start Date End Date Roger Alexandra MD [address] [place] [address] PCP - General Family Medicine 12/29/19 documented as of this encounter"
--- OUTSIDE RECORDS SUMMARY | 2023-07-25 04:10 | External Medical Summary | Summary of Care ---
Author Name Unknown Organization [facility] Address [address] [place] [address] Phone [phone] Care Team Providers Care Drill Setup Operator Name Role Phone Roger Alexandra MD Primary Care Provider [phone] Reason for Referral * Evaluate & Treat [...] Oxygen dependent Juan José Walters MD [address] [facility] [address] [place] [address] Referral ID Status Reason Start Date Expiration Date Visits Requested Visits Authorized [id number] Authorized Specialty Services Required 06/28/2023 999 999 Question Answer Referral Priority Within 10 days (routine) Comments Documentation of [id number]-ca-Hmqb Encounter Addendum Patient Name: Kimberly Kendall I certify that this patient is under my care and that I, or a nurse practitioner or physician's portfolio assistant working with me, had a lbtd-[id number] encounter that meets the physician fhco-os-loql encounter requirements with this patient on: Scheduled [...] effort and are for medical reasons or tenriism services or infrequently or of short duration when for other reason) because: of dyspnea with exertion, chronic medical conditions Physician Signature: Date of Signature: Physician Printed Name: Roger Alexandra MD Reason for Visit * Reason Onset Date Comments Order Request 06/28/2023 Encounter Details Date Type Department Care Team Description 06/28/2023 Telephone Urology, [address] [place] [address] Juan José Walters MD [address] [place] [address] [place] [address] Order Request Allergies Active Allergy Reactions Severity Noted Date Comments Aspirin Unknown 12/12/2007 von Willebrand's disease Salicylates 03/01/2000 von Willebrand's disease documented as of this encounter (statuses as of 06/28/2023) Medications Medication Sig Dispensed Refills Start Date End Date Status oxygen IN GASIndications:Chron ic hypoxemic respiratory failure (HCC),COPD, group D, by GOLD 2017 classification ([facility]) Use 2 LPM at rest, 4 LPM with exertion and with sleep. 1 Each 0 2022 Active Additional Information Patient taking differently: Use 4 LPM at rest, 5 LPM with exertion and 4 LPM with sleep., Reported on 12/16/2022 Disposable Brief X-LargeIndications:O veractive bladder Attends X-Large Super Absorb Underwear 32 Each 2 09/08/2022 Active Nebulizer DeviceIndications:CO PD, group D, by GOLD 2017 classification ([facility]),Chronic hypoxemic respiratory failure ([facility]) Use with nebulized meds 1 Each 0 09/16/2022 Active Full Kit Nebulizer SetIndications:COPD, group D, by GOLD 2017 classification ([facility]),Chronic hypoxemic respiratory failure ([facility]) Use with nebulizer 1 Each 0 09/16/2022 [...] (Feosol) 1 Tablet. 0 01/12/2023 Active Nystatin 852236 UNIT/GM External Powder (Nyamyc) apply to affected [...] group D, by GOLD 2017 classification ([facility]) 2.5 mg NEBULIZER PRN 03/03/2023 03/02/2024 Acti ve Albuterol Sulfate (Proventil) (5 MG/ML) 0.5% *conc* inhalation solution 2.5 mgIndications:COPD, group D, by GOLD 2017 classification ([facility]) 2.5 mg NEBULIZER PRN 03/03/2023 03/02/2024 Acti [...] 02/04/2006 12/21/2008 Atrial septal aneurysm 02/04/2006 9 snf current use 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 0 06/01/2005 [...] as of this encounter Miscellaneous Notes * Addendum Note - Yara Hernandez RN - 06/28/2023 2:37 PM EDTAddended by: YARA HERNANDEZ on: 06/28/2023 02:37 PM Modules accepted: Orders * Telephone Encounter - Yara Hernandez RN - 06/28/2023 2:19 PM EDT Referral for home health placed. Will fax to [facility], unsure if they will accept patient back again. Will await reply from them * Telephone Encounter - Roger Alexandra MD - 06/28/2023 1:02 PM EDT I don't know. * Telephone Encounter - Yvonne Esquivel LPN - 06/28/2023 11:15 AM EDT Patient states unable to obtain and drop off urine culture for further work up. Patient had prior [facility] coming in and states that Dr [...] to get further information in regards to [facility] forher. Please advise. documented in this encounter Plan of Treatment Upcoming Encounters Date Type Specialty Care Team Description 06/29/2023 [facility] Telepharmacy, [facility] [address] [place] [address] 06/29/2023 Telemedicine Urology Juan José Walters MD [address] [facility] [address] [place], [place] [id number] 07/02/2023 Telemedicine [facility] Sharmaine Johns PA-Roz [address] [place] [address] Aliya Brooks, Community Health Buffer Operator [address] [place] [address] 07/07/2023 Office Visit Cardiology Jerry Pacheco, DO [address] [place] [address] 07/21/2023 Telemedicine Psychiatry Hugo Alcantara MD [address] [place] [address] 08/04/2023 Office Visit Infectious Disease Julieta Reyes MD [address] [place] [address] Scheduled Procedures Name Priority Associated [...] 02/16/2022 LUNG CANCER SCREENING - USE SMARTSET [id number] Completed 2023, 03/16/2022, 08/24/2018, Additional history exists [...] oxygen documented in this encounter Care Teams Drill Setup Operator Relationship Specialty Start Date End Date Roger Alexandra MD [address] [place] [address] PCP - General Family Medicine 12/29/19 documented as of this encounter
--- OUTSIDE RECORDS SUMMARY | 2023-07-25 04:10 | External Medical Summary | Summary of Care ---
Author Name Unknown Organization [facility] Address [address] [facility] [address] Phone [phone] Care Team Providers Care Solar Thermal Technician Name Role Phone Roger Alexandra MD Primary Care Provider [phone] Reason for Visit * Reason Comments Dosage Adjustment Via Phone (anticoag Cl inic) Encounter Details Date Type Department Care Team Description 07/01/2023 Anticoagulation Pharmacy Call Center [address] [place] [address] [facility] [address] [place] [address] Anticoagulation management encounter* Allergies Active Allergy Reactions Severity Noted Date Comments Aspirin Unknown 12/12/2007 von Willebrand's disease Salicylates 03/01/2000 von Willebrand's disease documented as of this encounter (statuses as of 07/01/2023) Medications Medication Sig Dispensed Refills Start Date [...] PD, group D, by GOLD 2017 classification ([facility]),Chronic hypoxemic respiratory failure ([facility]) Use with nebulized meds 1 Each 0 09/16/2022 Active Full Kit Nebulizer SetIndications:COPD, group D, by GOLD 2017 classification ([facility]),Chronic hypoxemic respiratory failure ([facility]) Use with nebulizer 1 Each [...] (Feosol) 1 Tablet. 0 01/12/2023 Active Nystatin 328709 UNIT/GM External Powder (Nyamyc) apply to affected [...] mgIndications:COPD, group D, by GOLD 2017 classification ([facility]) 2.5 mg NEBULIZER PRN 03/03/2023 03/02/2024 Acti ve Albuterol Sulfate (Proventil) (5 MG/ML) 0.5% *conc* inhalation solution 2.5 mgIndications:COPD, group D, by GOLD 2017 classification ([facility]) 2.5 mg NEBULIZER PRN 03/03/2023 03/02/2024 Acti ve documented as of this encounter (statuses as of 07/01/2023) Active Problems Problem Noted Date Decreased functional [...] as of this encounter (statuses as of 07/01/2023) Resolved Problems Problem Noted Date Resolved Date [...] 02/04/2006 12/21/2008 Atrial septal aneurysm 02/04/2006 9 roasterman current use 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 0 06/01/2005 [...] as of this encounter (statuses as of 07/01/2023) Immunizations Name Administration Dates Next Due H1N1 2009 Influenza, IM 12/19/2009 Pneumococcal Polysaccharide PPV23 (Pneumovax) 03/20/2009 Seasonal Influenza Virus Vac cine, Unspecified Formulation 11/11/2021,09/15/2020,10/03/2017,08/21,08/01/2014,07/30/2014,08/09/2013 ,08/03/2012,08/24/2011,08/06/2010,02/2010,09/20/2007,09/04/2003 Seasonal Influenza, Quadriva lent, No Preserve, 6 [...] as of this encounter Progress Notes * Kim Mercado RPh - 07/01/2023 11:17 AM EDT Noted, not a significant interaction. Tech advised pt to call if NVD >24 hours. Kim Mercado Rph, Pharm.D. Clinical Pharmacist [facility] ([facility]) (formerly Telepharmacy) [phone] 07/01/2023,11:17 AM * DANIEL Morley - 07/01/2023 10:49 AM EDT Contacts Type Contact Phone/Fax 07/01/2023 10:33 AM EDT Phone (Outgoing) Kimberly Kendall (Self) [phone] (M) Subjective Patient Findings Positives: Change in medications (Pt taking Macrobid 100 mg taken twice daily. For UTI.) Negatives: Signs/symptoms of thrombosis, Signs/symptoms of bleeding, Change in health, Change in alcohol use, Change in activity, Upcoming invasive procedure, Missed doses, Extra doses, Change in diet/appetite, Bruising Advised patient to contact Anticoagulation Clinic if any unusual bruising or bleeding, recent illness, changes in medication, or questions/concerns. PT/INR results, Coumadin dose instructions, and next PT/INR date communicated as noted by Pharmacist: Yes DANIEL Morley Tech 07/01/2023, 10:49 AM * Kim Mercado [facility] - 07/01/2023 8:30 AM EDT Coumadin Clinic (region specific) Objective Current Warfarin Dose As of 07/01/2023 Warfarin maintenance plan: 2.5 mg (5 mg x 0.5) every Mon, Fri; 5 mg (5 mg x 1) all other days INR Result As of 07/01/2023 INR goal: 2.0-3.0 INR used for dosin.0 (06/30/2023) Assessment & Plan Warfarin Plan As of 07/01/2023 Full warfarin instructions: 07/01: Hold; 07/02: Hold; Otherwise 2.5 mg every Mon, Fri; 5 mg all otherdays Next INR check: 07/12/2023 Repeat PT/INR in 1.5 week(s) Weekly dose: not changed Additional Dosing Information: Description [facility] Also sent MyG after trying to call Tech to contact patient with dose instructions as noted. Kim Mercado [facility] 07/01/2023, 8:30 AM documented in this encounter Plan of Treatment Upcoming Encounters Date Type Specialty Care Team Description 07/02/2023 Telemedicine [facility] Sharmaine Johns PA-C [address] [place] [address] Aliya Brooks, Community Health Spinner Frame [address] [place] [address] 07/07/2023 Office Visit Cardiology Jerry Pacheco, DO [address] [place] [address] 07/12/2023 Laboratory Laboratory Processing [facility] Mobile Home Draw [address] [place] [address] 07/13/2023 [facility] [address] [place] [address] 07/21/2023 Telemedicine Psychiatry Hugo Alcantara MD [address] [place] [address] 07/21/2023 Office Visit Urology Juan José Walters MD 27 [facility] [address] [place] [address] 08/04/2023 Office Visit Infectious Disease Julieta Reyes MD [address] [place] [address] Scheduled Procedures Name Priority Associated [...] 02/16/2022 LUNG CANCER SCREENING - USE SMARTSET [id number] Completed 2023, 03/16/2022, 08/24/2018, Additional history exists [...] monitoring documented in this encounter Care Teams Solar Thermal Technician Relationship Specialty Start Date End Date Roger Alexandra MD [address] [place] [address] PCP - General Family Medicine 12/29/19 documented as of this encounter
--- OUTSIDE RECORDS SUMMARY | 2023-07-25 04:10 | External Medical Summary | Summary of Care ---
Author Name Unknown Organization [facility] Address [address] [place] [address] Phone [phone] Care Team Providers Care Missile And Missile Checkout Technician Name Role Phone Roger Alexandra MD Primary Care Provider [phone] Encounter Details Date Type Department Care Team Description 06/28/2023 Telephone Urology, [facility] [address] [facility] [place] [address] Juan José Walters MD 27 [facility] [address] [place] [address] Allergies Active Allergy Reactions Severity Noted Date [...] PD, group D, by GOLD 2017 classification ([facility]),Chronic hypoxemic respiratory failure ([facility]) Use with nebulized meds 1 Each 0 09/16/2022 Active Full Kit Nebulizer SetIndications:COPD, group D, by GOLD 2017 classification ([facility]),Chronic hypoxemic respiratory failure ([facility]) Use with nebulizer 1 Each 0 [...] (Feosol) 1 Tablet. 0 01/12/2023 Active Nystatin 592782 UNIT/GM External Powder (Nyamyc) apply to affected [...] mgIndications:COPD, group D, by GOLD 2017 classification ([facility]) 2.5 mg NEBULIZER PRN 03/03/2023 03/02/2024 Acti ve Albuterol Sulfate (Proventil) (5 MG/ML) 0.5% *conc* inhalation solution 2.5 mgIndications:COPD, group D, by GOLD 2017 classification ([facility]) 2.5 mg NEBULIZER PRN 03/03/2023 03/02/2024 [...] 02/04/2006 12/21/2008 Atrial septal aneurysm 02/04/2006 9 retirement current use 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 0 06/01/2005 [...] encounter Miscellaneous Notes * Telephone Encounter - Roger Alexandra MD [...] to get further information in regards to [facility] forher. Please advise. documented in this encounter Plan of Treatment Upcoming Encounters Date Type Specialty Care Team Description 06/29/2023 Anticoagulation Pharmacy Telepharmacy, [facility] [address] [facility] [place] [address] 06/29/2023 Telemedicine Urology Juan José Walters MD [address] [place] [address] 07/02/2023 Telemedicine [facility] Sharmaine Johns PA-C [address] [place] [address] Aliya Brooks, Community Health Engine Installer [address] [place] [address] 07/07/2023 Office Visit Cardiology Jerry Pacheco, DO [address] [place] [address] 07/21/2023 Telemedicine Psychiatry Hugo Alcantara MD [address] [place], [place] [address] 08/04/2023 Office Visit Infectious Disease Julieta Reyes MD [address] [place], [place] [address] Scheduled Procedures Name Priority Associated Diagnoses Date/Ti [...] 02/16/2022 LUNG CANCER SCREENING - USE SMARTSET [id number] Completed 2023, 03/16/2022, 08/24/2018, Additional history exists [...] filedocumented as of this encounter Care Teams Missile And Missile Checkout Technician Relationship Specialty Start Date End Date Roger Alexandra MD [address] [place] [address] PCP - General Family Medicine 12/29/19 documented as of this encounter
--- OUTSIDE RECORDS SUMMARY | 2023-07-25 04:10 | External Medical Summary | Summary of Care ---
Author Name Unknown Organization [facility] Address [address] [facility] [address] Phone [phone] Care Team Providers Care Power Generation Plant Operator Name Role Phone Roger Alexandra MD Primary Care Provider [phone] [phone] Encounter Details Date Type Department Care Team Description 06/29/2023 Telemedicine Urology, [facility] 132 [facility] [place] [address] Juan José Walters MD [address] [facility] [place] [address] Dysuria* Allergies Active Allergy Reactions Severity Noted Date Comments Aspirin Unknown 12/12/2007 von Willebrand's disease Salicylates 03/01/2000 von Willebrand's disease documented as of this encounter (statuses as of 06/29/2023) Medications Medication Sig Dispensed Refills Start Date [...] PD, group D, by GOLD 2017 classification ([facility]),Chronic hypoxemic respiratory failure ([facility]) Use with nebulized meds 1 Each 0 09/16/2022 Active Full Kit Nebulizer SetIndications:COPD, group D, by GOLD 2017 classification ([facility]),Chronic hypoxemic respiratory failure ([facility]) Use with nebulizer 1 Each 0 09/16/2022 [...] (Feosol) 1 Tablet. 0 01/12/2023 Active Nystatin 069258 UNIT/GM External Powder (Nyamyc) apply to affected [...] mgIndications:COPD, group D, by GOLD 2017 classification ([facility]) 2.5 mg NEBULIZER PRN 03/03/2023 03/02/2024 Acti ve Albuterol Sulfate (Proventil) (5 MG/ML) 0.5% *conc* inhalation solution 2.5 mgIndications:COPD, group D, by GOLD 2017 classification ([facility]) 2.5 mg NEBULIZER PRN 03/03/2023 03/02/2024 Acti ve documented as of this encounter (statuses as of 06/29/2023) Active Problems Problem Noted Date Decreased functional [...] as of this encounter (statuses as of 06/29/2023) Resolved Problems Problem Noted Date Resolved Date [...] as of this encounter (statuses as of 06/29/2023) Immunizations Name Administration Dates Next Due H1N1 [...] as of this encounter Progress Notes * Juan José Walters MD - 06/29/2023 3:00 PM EDT Video visit initialized, error message "patient unable to join." Will reschedule in person, patientnot seen physically at previous visit. HM documented in this encounter Plan of Treatment Upcoming Encounters Date Type Specialty Care Team Description 06/30/2023 Laboratory Laboratory Processing [facility] [place] Mobile Home Draw [address] [place] [address] 06/30/2023 [facility] Telepharmacy, [facility] [address] [place] [address] 07/02/2023 Telemedicine [facility] Sharmaine Johns PA-C [address] [place] [address] Aliya Brooks, Community Health Commercial Credit Lead [address] [place] [address] 07/07/2023 Office Visit Cardiology Jerry Pacheco, DO [address] [place] [address] 07/21/2023 Telemedicine Psychiatry Hugo Alcantara MD [address] [place] [address] 07/21/2023 Office Visit Urology Juan José Walters MD [address] [place] [address] 08/04/2023 Office Visit Infectious Disease Julieta Reyes MD [address] [place], [place] [address] Scheduled Procedures Name Priority Associated Diagnoses Date/Ti [...] 02/16/2022 LUNG CANCER SCREENING - USE SMARTSET [id number] Completed 2023, 03/16/2022, 08/24/2018, Additional history exists [...] this encounter Visit Diagnoses Diagnosis Dysuria- Primary documented in this encounter Care Teams Power Generation Plant Operator Relationship Specialty Start Date End Date Roger Alexandra MD [address] [place] [address] PCP - General Family Medicine 12/29/19 documented as of this encounter
--- OUTSIDE RECORDS SUMMARY | 2023-07-25 04:10 | External Medical Summary ---
Author Name Unknown Address Unknown Organization K01:[facility] [place] - [address] [place] [address] Laboratory Report Ordering Provider Test Date Status SUMAN STANFORD 06/30/2023 12:01:00 Final Observation Date Value Abnormality Reference (Units ) Status PT 06/30/2023 12:01:00 39.4 Above high normal 11 .6-15.2 (seconds) Final INR 06/30/2023 12:01:00 4.0 Above high normal 0. 8-1.2 Final Performing Location [facility] [place] - [address] [place] [address]
--- OUTSIDE RECORDS SUMMARY | 2023-07-25 04:10 | External Medical Summary | Summary of Care ---
Author Name Unknown Organization [facility] Address [address] [place] [address] Phone [phone] Care Team Providers Care Neurobiologist Name Role Phone Roger Alexandra MD Primary Care Provider [phone] Reason for Visit * Reason Onset Date Comments case management 06/21/2023 Encounter Details Date Type Department Care Team Description 06/21/2023 Gas Pit Worker Telephone Family [facility] [address] [place] [place] [address] Yara Morris, manager of project management Allergies Active Allergy Reactions Severity Noted Date Comments Aspirin Unknown 12/12/2007 von Willebrand's disease Salicylates 03/01/2000 von Willebrand's disease documented as of this encounter (statuses as of 06/28/2023) Medications Medication Sig Dispensed Refills Start Date End Date Status oxygen IN GASIndications:Chr onic hypoxemic respiratory failure (HCC),COPD, group D, by GOLD 2017 classification ([facility]) Use 2 LPM at rest, 4 LPM with exertion and with sleep. 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 18 g 1 2 Active Albuterol Sulfate 0.63 MG/3ML Inhalation Nebulization Solution (Accuneb) Inhale 1 Vial (0.63 mg) via nebulizer every 4 hours as needed for Wheezing or Shortness of Breath. 540 mL 12 2 Active Isosorbide Mononitrate ER 30 MG Oral Tablet Extended Release 24 Hour (Imdur) take 1 tablet by mouth daily 30 Tablet 5 3 Active Solifenacin Succinate 10 MG Oral Tablet [...] Oral Tablet (Iron-Vitamin C 65-125 mg per tab)Indications:Ot her iron deficiency anemia Take 2 Tablets by mouth in the morning. 60 Tablet 11 3 Active Ipratropium-Albute rol 0.5-2.5 (3) MG/3ML Inhalation Solution (Duoneb) Inhale 3 ML by mouth every 6 hours as needed for wheezing. J44.9 90 mL 3 3 Active Omeprazole 20 MG Oral Capsule Delayed [...] (Feosol) 1 Tablet. 0 3 Active Nystatin 380679 UNIT/GM External Powder (Nyamyc) apply to affected area twice a day 60 g 1 3 Active Cefuroxime Axetil 500 MG Oral Tablet (Ceftin) Take 1 Tablet by mouth in the morning and 1 Tablet before bedtime. 14 Tablet 0 3 Active Warfarin Sodium 5 MG Oral Tablet (Coumadin)Indicati ons:Paroxysmal atrial fibrillation (HCC) Take 0.5-1 Tablets by [...] 3 Active Baclofen 10 MG Oral Tablet (Lioresal)Indicati ons:Chronic bilateral low back pain without sciatica Take 1 Tablet by mouth 3 times a day as needed for Muscle spasms. 90 Tablet 0 3 Active Furosemide 40 MG Oral Tablet (Lasix)Indications :Chronic diastolic CHF (congestive heart failure) (HCC) Take 1 Tablet by mouth in the morning and 1 Tablet before bedtime. 180 Tablet 3 3 Active Nitrofurantoin Monohyd Macro 100 MG Oral Capsule (Macrobid) Take 1 Capsule by mouth in the morning and 1 Capsule before bedtime. With food.. 20 Capsule 0 3 023 Discontinued(Re fill) Furosemide 40 MG Oral Tablet (Lasix)Indications :Chronic diastolic CHF (congestive heart failure) (HCC) Take 1 Tablet by mouth daily as needed for Other (leg swelling). 90 Tablet 3 3 023 Discontinued Acetaminophen-Code ine 300-30 MG Oral TabletIndications: Chronic bilateral low back pain without sciatica Take 1 Tablet by mouth every 6 hours as needed for Pain, Moderate. 120 Tablet 0 3 023 Discontinued(Re fill) Hospital, Clinic, or Other Facility Administered Medication Ordered Dose Route Frequency Start Date End Date Status Albuterol Sulfate (Proventil) (2.5 MG/3ML) 0.083% inhalation solution 2.5 mgIndications:COPD, group D, by GOLD 2017 classification ([facility]) 2.5 mg NEBULIZER PRN 03/03/2023 03/02/2024 Acti ve Albuterol Sulfate (Proventil) (5 MG/ML) 0.5% *conc* inhalation solution 2.5 mgIndications:COPD, group D, by GOLD 2017 classification ([facility]) 2.5 mg NEBULIZER PRN 03/03/2023 03/02/2024 [...] 02/04/2006 12/21/2008 Atrial septal aneurysm 02/04/2006 9 senior care current use 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 0 06/01/2005 [...] encounter Miscellaneous Notes * Telephone Encounter - Tracey Cabrera LPN - 06/28/2023 1:28 PM EDT Pt is aware of need to come to urology clinic for catheterized urine sample. * Telephone Encounter - Yara Morris RN - 06/21/2023 2:18 PM EDT Spoke with Dr. Alexandra, Will increased lasix to BID for fluid and SOB. Discussed with patient. Urology team, as patient has been discharged from , they will not go back in for catheterization to obtain sample. Is it possible for patient to come into uro clinic to get sample? Thank you * Telephone Encounter - Juan José Walters MD - 06/21/2023 10:33 AM EDT UC&S ordered, OK to check, thx, HM * Telephone Encounter - Yara Morris RN - 06/21/2023 9:51 AM EDT CM Progress note S: Patient called in with concerns of increased SOB and swelling to BLE. She reports oxygen sats are at her usual 87-92%. She denies any cough, fever or chills. She reports having increased muscle cramping recently to legs and in thumbs. She cannot tell me if there is any redness or warm areas to touch on her lower legs or the back of her legs, she is unable to see. Has some wheezing. Weight was 320 lbs today, she cannot recall what her weight prior to this was. States "this dementia is gettingworse, I cannot remember". She has taken her 40mg lasix this morning. She still does not use her nebulizer as this "caro her mouth". She reports that she is taking her hand held inhaler. She also has return of painful/burning to perineum, she feels could be a uti. O: phone call A: Alert, oriented to her baseline P: Asked to have granddaughter look at legs to make sure no red/warm areas. Monitor weight gain. Will message PCP and urology with symptoms. documented in this encounter Plan of Treatment Upcoming Encounters Date Type Specialty Care Team Description 06/29/2023 Anticoagulation Pharmacy Telepharmacy, [facility] [address] [place] [address] 06/29/2023 Telemedicine Urology Juan José Walters MD [address] [place] [address] 07/02/2023 Telemedicine [facility] Sharmaine Johns PA-C [address] [place] [address] Aliya Brooks, Community Health Sizing Sprayer [address] [place] [address] 07/07/2023 Office Visit Cardiology Jerry Pacheco, DO [address] [place] [address] 07/21/2023 Telemedicine Psychiatry Hugo Alcantara MD [address] [place] [address] 08/04/2023 Office Visit Infectious Disease Julieta Reyes MD [address] [place] [address] Scheduled Orders Name Type Priority Associated Diagnoses Orde r Schedule CULTURE, URINE, QUANTITATIVE Lab Routine Recurrent UTI Expected: 06/21/2023, Expires: 06/21/2024 Scheduled Procedures Name Priority Associated Diagnoses Date/Ti [...] 02/16/2022 LUNG CANCER SCREENING - USE SMARTSET 33770 Completed 2023, 03/16/2022, 08/24/2018, Additional history exists [...] as of this encounter Visit Diagnoses Diagnosis Recurrent UTI- Primary Urinary tract infection, site not specified Chronic diastolic CHF (congestive heart failure) (HCC) Chronic diastolic heart failure documented in this encounter Care Teams Neurobiologist Relationship Specialty Start Date End Date Roger Alexandra MD [address] [place] [address] PCP - General Family Medicine 12/29/19 documented as of this encounter
--- OUTSIDE RECORDS SUMMARY | 2023-07-25 04:10 | External Medical Summary | Summary of Care ---
Author Name Unknown Organization [facility] Address [address] [place] [address] Phone [phone] Care Team Providers Care Chucking Machine Set Up Operator Tool Name Role Phone Roger Alexandra MD Primary Care Provider [phone] Encounter Details Date Type Department Care Team Description 06/28/2023 Telephone Urology, [facility] [address] [facility] [place] [address] Juan José Walters MD 27 [facility] [address] [place] [address] Allergies Active Allergy Reactions Severity Noted [...] group D, by GOLD 2017 classification ([facility]),Chronic hypoxemic respiratory failure ([facility]) Use with nebulized meds 1 Each 0 09/16/2022 Active Full Kit Nebulizer SetIndications:COPD, group D, by GOLD 2017 classification ([facility]),Chronic hypoxemic respiratory failure ([facility]) Use with nebulizer 1 [...] (Feosol) 1 Tablet. 0 01/12/2023 Active Nystatin 135300 UNIT/GM External Powder (Nyamyc) apply to affected [...] group D, by GOLD 2017 classification ([facility]) 2.5 mg NEBULIZER PRN 03/03/2023 03/02/2024 Acti ve Albuterol Sulfate (Proventil) (5 MG/ML) 0.5% *conc* inhalation solution 2.5 mgIndications:COPD, group D, by GOLD 2017 classification ([facility]) 2.5 mg NEBULIZER PRN [...] 02/04/2006 12/21/2008 Atrial septal aneurysm 02/04/2006 9 [facility] current use 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 0 06/01/2005 [...] for further work up. Patient had prior [facility] HH coming in and states that [...] to get further information in regards to [facility] forher. Please advise. documented in this encounter Plan of Treatment Upcoming Encounters Date Type Specialty Care Team Description 06/29/2023 Anticoagulation Pharmacy Telepharmacy, [facility] [address] [facility] [place] [address] 06/29/2023 Telemedicine Urology Juan José Walters MD [address] [place] [address] 07/02/2023 Telemedicine [facility] Sharmaine Johns PA-C [address] [place] [address] Aliya Brooks, Community [facility] Canine Deputy [address] [place] [address] 07/07/2023 Office Visit Cardiology Jerry Pacheco, DO [address] [place] [address] 07/21/2023 Telemedicine Psychiatry Hugo Alcantara MD [address] [place], [place] [address] 08/04/2023 Office Visit Infectious Disease Julieta Reyes MD [address] [place], [place] [address] Scheduled Procedures Name Priority Associated Diagnoses Date/Ti [...] 02/16/2022 LUNG CANCER SCREENING - USE SMARTSET 42363 Completed 2023, 03/16/2022, 08/24/2018, Additional history exists [...] filedocumented as of this encounter Care Teams Chucking Machine Set Up Operator Tool Relationship Specialty Start Date End Date Roger Alexandra MD [address] [place] [address] PCP - General Family Medicine 12/29/19 documented as of this encounter
--- OUTSIDE RECORDS SUMMARY | 2023-07-25 04:10 | External Medical Summary | Summary of Care ---
Author Name Unknown Organization [facility] Address [address] [place] [address] Phone [phone] Care Team Providers Care Corner Trimmer Operator Name Role Phone Roger Alexandra MD Primary Care Provider [phone] Reason for Referral * Evaluate & Treat [...] Oxygen dependent Juan José Walters MD 27 [facility] [address] [place] [address] Referral ID Status Reason Start Date Expiration Date Visits Requested Visits Authorized [id number] Authorized Specialty Services Required 06/28/2023 999 999 Question Answer Referral Priority Within 10 days (routine) Comments Documentation of [id number] Encounter Addendum Patient Name: Kimberly Kendall I certify that this patient is under my care and that I, or a nurse practitioner or physician's railway yard assistant working with me, had a [id number]-io-rphb encounter that meets the physician btgg-ei-hjmy encounter requirements with this patient on: Scheduled [...] effort and are for medical reasons or holiness services or infrequently or of short duration when for other reason) because: of dyspnea with exertion, chronic medical conditions Physician Signature: Date of Signature: Physician Printed Name: Roger Alexandra MD Reason for Visit * Reason Onset Date Comments Order Request 06/28/2023 Home health Encounter Details Date Type Department Care Team Description 06/28/2023 Telephone Urology, [facility] 132 [facility] [place] [address] Juan José Walters MD [address] [place] [address] [place] [address] Order Request (Home health ) Allergies Active Allergy Reactions Severity Noted Date Comments Aspirin Unknown 12/12/2007 von Willebrand's disease Salicylates 03/01/2000 von Willebrand's disease documented as of this encounter (statuses as of 06/29/2023) Medications Medication Sig Dispensed Refills Start Date End Date Status oxygen IN GASIndications:Chron ic hypoxemic respiratory failure (HCC),COPD, group D, by GOLD 2017 classification ([facility]) Use 2 LPM at rest, [...] D, by GOLD 2017 classification ([facility]),Chronic hypoxemic respiratory failure ([facility]) Use with nebulized meds 1 Each 0 09/16/2022 Active Full Kit Nebulizer SetIndications:COPD, group D, by GOLD 2017 classification ([facility]),Chronic hypoxemic respiratory failure ([facility]) Use with nebulizer 1 Each [...] (Feosol) 1 Tablet. 0 01/12/2023 Active Nystatin 687998 UNIT/GM External Powder (Nyamyc) apply to affected [...] D, by GOLD 2017 classification ([facility]) 2.5 mg NEBULIZER PRN 03/03/2023 03/02/2024 Acti ve Albuterol Sulfate (Proventil) (5 MG/ML) 0.5% *conc* inhalation solution 2.5 mgIndications:COPD, group D, by GOLD 2017 classification ([facility]) 2.5 mg NEBULIZER PRN 03/03/2023 [...] 02/04/2006 12/21/2008 Atrial septal aneurysm 02/04/2006 9 longterm current use 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 0 06/01/2005 [...] Telephone Encounter - Yara Hernandez RN - 06/29/2023 8:40 AM EDT Antonina at [facility] called to notify they are able to accept referral. Faxed demographics sheet to them. * Telephone Encounter - Yara Hernandez RN - 06/28/2023 4:26 PM EDT [facility] called to report they are unable to accept the referral. Faxed to [facility]. * Addendum Note - Yara Hernandez RN - 06/28/2023 2:37 PM EDTAddended by: YARA HERNANDEZ on: 06/28/2023 02:37 PM Modules accepted: Orders * Telephone Encounter - Yara Hernandez RN - 06/28/2023 2:19 PM EDT Referral for home health placed. Will fax to [facility], unsure if they will accept patient back again. Will await reply from them * Telephone Encounter - Roger Alexandra MD - 06/28/2023 1:02 PM EDT I don't know. * Telephone Encounter - Yvonne sEquivel LPN - 06/28/2023 11:15 AM EDT Patient states unable to obtain and drop off urine culture for further work up. Patient had prior [facility] HH coming in and states that [...] to get further information in regards to [facility] forher. Please advise. documented in this encounter Plan of Treatment Upcoming Encounters Date Type Specialty Care Team Description 06/29/2023 Telemedicine Urology Juan José Walters MD [address] [facility] [address] [place] [address] 06/30/2023 Laboratory Laboratory Processing [facility] [address] [place] [address] 06/30/2023 [facility] [address] [facility] [place] [address] 07/02/2023 Telemedicine [facility] Sharmaine Johns PA-C [address] [place] [address] Aliya Brooks, Community [facility] [place] [address] [place] [address] 07/07/2023 Office Visit Cardiology Jerry Pacheco, DO [address] [place] [address] 07/21/2023 Telemedicine Psychiatry Hugo Alcantara MD [address] [place] [address] 08/04/2023 Office Visit Infectious Disease Julieta Reyes MD [address] [place] [address] Scheduled Procedures Name Priority Associated Diagnoses Date/Ti [...] 02/16/2022 LUNG CANCER SCREENING - USE SMARTSET [id number] Completed 2023, 03/16/2022, 08/24/2018, Additional history exists [...] oxygen documented in this encounter Care Teams Corner Trimmer Operator Relationship Specialty Start Date End Date Roger Alexandra MD [address] [place] [address] PCP - General Family Medicine 12/29/19 documented as of this encounter
--- OUTSIDE RECORDS SUMMARY | 2023-07-25 04:11 | External Medical Summary | Summary of Care ---
Author Name Unknown Organization [facility] Address [address] [place] [address] Phone [phone] Care Team Providers Care Political Reporter Name Role Phone Roger Alexandra MD Primary Care Provider [phone] Reason for Visit * Reason Onset Date Comments Advice 06/24/2023 Encounter Details Date Type Department Care Team Description 06/24/2023 Specification Manager Telephone Family Practice [facility] [address] [place] [address] Yara Morris, financial representative Allergies Active Allergy Reactions Severity Noted Date Comments Aspirin Unknown 12/12/2007 von Willebrand's disease Salicylates 03/01/2000 von Willebrand's disease documented as of this encounter (statuses as of 06/24/2023) Medications Medication Sig Dispensed Refills Start Date End Date Status oxygen IN GASIndications:Supervisor Purification 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 respiratory failure (HCC),COPD, group D, by GOLD 2017 classification ([facility]) Use 2 LPM at rest, 4 [...] D, by GOLD 2017 classification ([facility]),Chronic hypoxemic respiratory failure (HCC) Use with nebulized meds 1 Each 0 09/16/2022 Active Full Kit Nebulizer SetIndications:COPD , group D, by GOLD 2017 classification ([facility]),Chronic hypoxemic respiratory failure (HCC) Use with [...] (Feosol) 1 Tablet. 0 01/12/2023 Active Nystatin 428735 UNIT/GM External Powder (Nyamyc) apply to affected [...] 24, 2023. 90 Tablet 1 06/24/2023 Active Acetaminophen-Codei ne 300-30 MG Oral TabletIndications:C hronic bilateral low back pain without sciatica Take 1 Tablet by mouth every 6 hours as needed for Pain, Moderate. 120 Tablet 0 2023 Active Baclofen 10 MG Oral Tablet (Lioresal)Indicatio [...] With food.. 20 Capsule 0 06/24/2023 Active Nitrofurantoin Monohyd Macro 100 MG Oral Capsule (Macrobid) Take 1 Capsule by mouth in the morning and 1 Capsule before bedtime. With food.. 20 Capsule 0 04/16/2023 3 Discontinu ed(Refill) Hospital, Clinic, or Other Facility Administered Medication Ordered Dose Route Frequency Start Date End Date Status Albuterol Sulfate (Proventil) (2.5 MG/3ML) 0.083% inhalation solution 2.5 mgIndications:COPD, group D, by GOLD 2017 classification ([facility]) 2.5 mg NEBULIZER PRN 03/03/2023 03/02/2024 Acti ve Albuterol Sulfate (Proventil) (5 MG/ML) 0.5% *conc* inhalation solution 2.5 mgIndications:COPD, group D, by GOLD 2017 classification ([facility]) 2.5 mg NEBULIZER PRN 03/03/2023 03/02/2024 Acti ve documented as of this encounter (statuses as of 06/24/2023) Active Problems Problem Noted Date Decreased functional [...] as of this encounter (statuses as of 06/24/2023) Resolved Problems Problem Noted Date Resolved Date [...] 02/04/2006 12/21/2008 Atrial septal aneurysm 02/04/2006 9 terminal make up operator current use 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 0 [...] as of this encounter (statuses as of 06/24/2023) Immunizations Name Administration Dates Next Due H1N1 [...] encounter Miscellaneous Notes * Telephone Encounter - Yvonne Esquivel LPN - 06/24/2023 3:27 PM EDT MyG sent to pt * Telephone Encounter - Juan José Walters MD - 06/24/2023 3:18 PM EDT Prescription for Macrobid sent. Strongly recommend the patient drop off urine culture beforehand and keep appointment as scheduled next week. Thanks, HM * Telephone Encounter - Yara Morris RN - 06/24/2023 2:07 PM EDT CM Progress note S: Patient called in to report that her legs are hurting, she has not felt improved with increased diuretic. She reports oxygen yesterday (she has not checked today) was running in the 83-93% range. She has some slight wheezing, reports is using inhaler 4x a day as directed. She is not coughing up mucus. She doesn't feel she would be able to get into the clinic due to leg pain to have a straight cath to obtain UA. States urine is darker colored and "it is burning down there, like it does when Ihave a uti". O: phone call follow up A: alert and oriented P: Instructed that id oxygen falls to 83- 88 with use of oxygen and she has worsening wheezing or SOB she should be evaluated urgently/ER. She is agreeable to [facility] tele visit. Will refer for Lashae Roberts appt. Will message urology to see if appropriate to send abx without UA, as she feelsshe has an infection. documented in this encounter Plan of Treatment Upcoming Encounters Date Type Specialty Care Team Description 06/28/2023 Laboratory Laboratory Processing [facility], [facility] Draw [address] [place] [address] 06/29/2023 Anticoagulation Pharmacy Telepharmacy, [facility] [address] [place] [address] 06/29/2023 Telemedicine Urology Juan José Walters MD [address] [address] 07/07/2023 Telemedicine [facility] Sharmaine Johns PA-Roz [address] [place] [address] Kim Carrizales, Community Health Accounting Practice Manager [address] [place] [address] 07/07/2023 Office Visit Cardiology Jerry Pacheco, DO [address] [place] [address] 07/21/2023 Telemedicine Psychiatry Hugo Alcantara MD [address] [place] [address] 08/04/2023 Office Visit Infectious Disease Julieta Reyes MD [address] [place] [address] Scheduled Procedures Name Priority Associated Diagnoses Date/Ti [...] 02/16/2022 LUNG CANCER SCREENING - USE SMARTSET 55551 Completed 2023, 03/16/2022, 08/24/2018, Additional history exists [...] filedocumented as of this encounter Care Teams Political Reporter Relationship Specialty Start Date End Date Roger Alexandra MD [address] [place] [address] PCP - General Family Medicine 12/29/19 documented as of this encounter
--- OUTSIDE RECORDS SUMMARY | 2023-07-25 04:11 | External Medical Summary | Summary of Care ---
Author Name Unknown Organization [facility] Address [address] [facility] [address] Phone [phone] Care Team Providers Care Coal Washer Tender Name Role Phone Roger Alexandra MD Primary Care Provider [phone] [phone] Reason for Visit * Reason Comments eRx-Medication Refill Encounter Details Date Type Department Care Team Description 06/21/2023 Refill Family Practice [facility] [address] [place] [address] Brittney Wilde, [address] [place] [id number] Chronic bilateral low back pain without sciatica Allergies Active Allergy Reactions Severity Noted Date Comments Aspirin Unknown 12/12/2007 von Willebrand's disease Salicylates 03/01/2000 von Willebrand's disease documented as of this encounter (statuses as of 06/21/2023) Medications Medication Sig Dispensed Refills Start Date [...] D, by GOLD 2017 classification ([facility]),Chronic hypoxemic respiratory failure ([facility]) Use with nebulized meds 1 Each 0 09/16/2022 Active Full Kit Nebulizer SetIndications:COPD, group D, by GOLD 2017 classification ([facility]),Chronic hypoxemic respiratory failure ([facility]) Use with nebulizer 1 Each 0 [...] before bedtime. 120 Tablet 2 04/07/2023 Active Nitrofurantoin Monohyd Macro 100 MG Oral Capsule (Macrobid) Take 1 Capsule by mouth in the morning and 1 Capsule before bedtime. With food.. 20 Capsule 0 04/16/2023 Active Ferrous Sulfate 325 (65 Fe) MG Oral Tablet (Feosol) 1 Tablet. 0 01/12/2023 Active Nystatin 389219 UNIT/GM External Powder (Nyamyc) apply to affected area twice a day 60 g 1 05/10/2023 Active Furosemide 40 MG Oral Tablet (Lasix)Indications:C hronic diastolic CHF (congestive heart failure) (HCC) Take 1 Tablet by mouth daily as needed for Other (leg swelling). 90 Tablet 3 05/12/2023 Active Cefuroxime Axetil 500 MG Oral Tablet [...] 24, 2023. 90 Tablet 1 06/24/2023 Active Acetaminophen-Codein e 300-30 MG Oral TabletIndications:Ch ronic bilateral low back pain without sciatica Take 1 Tablet by mouth every 6 hours as needed for Pain, Moderate. 120 Tablet 0 2023 Active Baclofen 10 MG Oral Tablet (Lioresal)Indication s:Chronic bilateral low back pain without sciatica Take 1 Tablet by mouth 3 times a day as needed for Muscle spasms. 90 Tablet 0 06/21/2023 Active Hospital, Clinic, or Other Facility Administered Medication Ordered Dose Route Frequency Start Date End Date Status Albuterol Sulfate (Proventil) (2.5 MG/3ML) 0.083% inhalation solution 2.5 mgIndications:COPD, group D, by GOLD 2017 classification ([facility]) 2.5 mg NEBULIZER PRN 03/03/2023 03/02/2024 Acti ve Albuterol Sulfate (Proventil) (5 MG/ML) 0.5% *conc* inhalation solution 2.5 mgIndications:COPD, group D, by GOLD 2017 classification ([facility]) 2.5 mg NEBULIZER PRN 03/03/2023 03/02/2024 Acti ve documented as of this encounter (statuses as of 06/21/2023) Active Problems Problem Noted Date Decreased functional [...] as of this encounter (statuses as of 06/21/2023) Resolved Problems Problem Noted Date Resolved Date [...] 02/04/2006 12/21/2008 Atrial septal aneurysm 02/04/2006 9 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 current use 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 0 06/01/2005 [...] as of this encounter (statuses as of 06/21/2023) Immunizations Name Administration Dates Next Due H1N1 [...] encounter Miscellaneous Notes * Telephone Encounter - Alvarez Mueller RPh - 06/21/2023 10:47 AM EDTRefused Prescriptions: Disp Refills Baclofen 10 MG Oral Tablet (Lioresal) 90 Tab*0 Sig: take 1 tablet by mouth three times a day if needed for muscle spasmRefused By: Sonia MUELLER for Refusal:Duplicate Request documented in this encounter Plan of Treatment Upcoming Encounters Date Type Specialty Care Team Description 06/22/2023 [facility] [address] [facility] [address] 06/28/2023 Telemedicine Urology Juan José Walters MD [address] [facility] [address] [place] [address] 07/07/2023 Office Visit Cardiology Jerry Pacheco, [address] [place] [address] 07/21/2023 Telemedicine Psychiatry Hugo Alcantara MD [address] [place] [address] 08/04/2023 Office Visit Infectious Disease Julieta Reyes MD [address] [place] [address] Scheduled Procedures Name Priority Associated Diagnoses Date/Ti [...] 02/16/2022 LUNG CANCER SCREENING - USE SMARTSET [id number] Completed 2023, 03/16/2022, 08/24/2018, Additional history exists [...] as of this encounter Visit Diagnoses Diagnosis Chronic bilateral low back pain without sciatica documented in this encounter Care Teams Coal Washer Tender Relationship Specialty Start Date End Date Roger Alexandra MD [address] [place] [address] PCP - General Family Medicine 12/29/19 documented as of this encounter
--- OUTSIDE RECORDS SUMMARY | 2023-07-25 04:11 | External Medical Summary | Summary of Care ---
Author Name Unknown Organization [facility] Address [address] [facility] [place] [address] Phone [phone] Care Team Providers Care Mini Shifter Name Role Phone Jeevan Mclean MD Primary Care Provider [phone] Reason for Visit * Reason Onset Date Comments Medication Refill 06/25/2023 Encounter Details Date Type Department Care Team Description 06/25/2023 Manga Artist Telephone Family [facility] [address] [facility] [place] [address] Yara Morris, director global sales Refill Allergies Active Allergy Reactions Severity Noted Date Comments Aspirin Unknown 12/12/2007 von Willebrand's disease Salicylates 03/01/2000 von Willebrand's disease documented as of this encounter (statuses as of 06/25/2023) Medications Medication Sig Dispensed Refills Start Date End Date Status oxygen IN GASIndications:Apron Man 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 respiratory failure (HCC),COPD, group D, by GOLD 2017 classification ([facility]) Use 2 LPM at rest, 4 LPM with exertion and with sleep. 1 Each 0 2022 Active Additional Information Patient taking differently: Use 4 LPM at rest, 5 LPM with exertion and 4 LPM with sleep., Reported on 12/16/2022 Disposable Brief X-LargeIndications: Overactive bladder Attends X-Large Super Absorb Underwear 32 Each 2 09/08/2022 Active Nebulizer DeviceIndications:C OPD, group D, by GOLD 2017 classification ([facility]),Chronic hypoxemic respiratory failure (HCC) Use with nebulized meds 1 Each 0 09/16/2022 Active Full Kit Nebulizer SetIndications:COPD , group D, by GOLD 2017 classification ([facility]),Chronic hypoxemic respiratory failure ([facility]) Use with nebulizer 1 Each 0 09/16/2022 [...] (Feosol) 1 Tablet. 0 01/12/2023 Active Nystatin 631651 UNIT/GM External Powder (Nyamyc) apply to affected [...] Pain, Moderate. 120 Tablet 0 06/25/2023 Active Acetaminophen-Codei ne 300-30 MG Oral TabletIndications:C hronic bilateral low back pain without sciatica Take 1 Tablet by mouth every 6 hours as needed for Pain, Moderate. 120 Tablet 0 2023 3 Discontinu ed(Refill) Hospital, Clinic, or Other Facility Administered Medication Ordered Dose Route Frequency Start Date End Date Status Albuterol Sulfate (Proventil) (2.5 MG/3ML) 0.083% inhalation solution 2.5 mgIndications:COPD, group D, by GOLD 2017 classification ([facility]) 2.5 mg NEBULIZER PRN 03/03/2023 03/02/2024 Acti ve Albuterol Sulfate (Proventil) (5 MG/ML) 0.5% *conc* inhalation solution 2.5 mgIndications:COPD, group D, by GOLD 2017 classification ([facility]) 2.5 mg NEBULIZER PRN 03/03/2023 03/02/2024 Acti ve documented as of this encounter (statuses as of 06/25/2023) Active Problems Problem Noted Date Decreased functional [...] as of this encounter (statuses as of 06/25/2023) Resolved Problems Problem Noted Date Resolved Date [...] 02/04/2006 12/21/2008 Atrial septal aneurysm 02/04/2006 9 shelter current use 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 0 06/01/2005 [...] as of this encounter (statuses as of 06/25/2023) Immunizations Name Administration Dates Next Due H1N1 2009 Influenza, IM 12/19/2009 Pneumococcal Polysaccharide PPV23 (Pneumovax) 03/20/2009 Seasonal Influenza Virus Vac cine, Unspecified Formulation 11/11/2021,09/15/2020,10/03/2017,08/21,08/01/2014,07/30/2014,08/09/2013 ,08/03/2012,08/24/2011,08/06/2010,0202/2010,09/20/2007,09/04/2003 Seasonal Influenza, Quadriva lent, No Preserve, 6 [...] Telephone Encounter - Jeevan Mclean MD - 06/25/2023 10:19 AM EDTSigned Prescriptions: Disp Refills Acetaminophen-Codeine 300-30 MG Oral Oxigly098 Ta*0 Sig: Take 1 Tablet by mouth every 6 hours as needed for Pain, Moderate. Authorizing Provider: JEEVAN MCLEAN * Telephone Encounter - Yara Morris RN - 06/25/2023 10:00 AM EDT Patient called in asking for a refill as she will be due for this on Wednesday. She does not have anyone to tack picker the prescription over the weekend. Also gave nia message from urology- antibiotic sentto pharm from Dr. Walters, for suspected uti. Made aware she needs to come in for straight cath/ UA in the future. Also informed her if she has worsening pain that doesn't allow her to amulate she needs evaluated. Pended refill for Tylenol III, Dr. Mclean Per PDMP last fill was 05/28/23 30 day supply. Thank you documented in this encounter Plan of Treatment Upcoming Encounters Date Type Specialty Care Team Description 06/28/2023 Laboratory [facility] Draw [address] [place] [address] 06/29/2023 [facility] [address] [place] [address] 06/29/2023 Telemedicine Urology Juan José Walters MD [address] [facility] [address] [place] [address] 07/07/2023 Telemedicine [facility] Sharmaine Johns PA-C [address] [place] [address] Kim Carrizales, Community Health Technical Support Representative [address] [place] [address] 07/07/2023 Office Visit Cardiology Jerry Pacheco, DO [address] [place] [address] 07/21/2023 Telemedicine Psychiatry Hugo Alcantara MD [address] [place] [address] 08/04/2023 Office Visit Infectious Disease Juleita Reyes MD [address] [place], [place] [id number] Scheduled Procedures Name Priority Associated Diagnoses Date/Ti [...] 02/16/2022 LUNG CANCER SCREENING - USE SMARTSET [id number] Completed 2023, 03/16/2022, 08/24/2018, Additional history exists [...] sciatica documented in this encounter Care Teams Mini Shifter Relationship Specialty Start Date End Date Jeevan Mclean MD [address] [place] [address] PCP - General Family Medicine 12/29/19 documented as of this encounter
--- OUTSIDE RECORDS SUMMARY | 2023-07-25 04:11 | External Medical Summary | Summary of Care ---
Author Name Unknown Organization [facility] Address [address] [facility] [address] Phone [phone] Care Team Providers Care Director Revenue Name Role Phone Roger Alexandra MD Primary Care Provider [phone] Reason for Visit * Reason Comments Dosage Adjustment Via Phone (anticoag Cl inic) Encounter Details Date Type Department Care Team Description 06/22/2023 Anticoagulation Pharmacy Call Center [address] [facility] [address] [facility] [address] [place] [address] Anticoagulation management encounter* Allergies Active Allergy Reactions Severity Noted Date Comments Aspirin Unknown 12/12/2007 von Willebrand's disease Salicylates 03/01/2000 von Willebrand's disease documented as of this encounter (statuses as of 06/22/2023) Medications Medication Sig Dispensed Refills Start Date [...] PD, group D, by GOLD 2017 classification ([facility]),Chronic hypoxemic respiratory failure ([facility]) Use with nebulized meds 1 Each 0 09/16/2022 Active Full Kit Nebulizer SetIndications:COPD, group D, by GOLD 2017 classification ([facility]),Chronic hypoxemic respiratory failure ([facility]) Use with nebulizer 1 Each [...] (Feosol) 1 Tablet. 0 01/12/2023 Active Nystatin 310193 UNIT/GM External Powder (Nyamyc) apply to affected [...] before bedtime. 180 Tablet 3 06/21/2023 Active Hospital, Clinic, or Other Facility Administered Medication Ordered Dose Route Frequency Start Date End Date Status Albuterol Sulfate (Proventil) (2.5 MG/3ML) 0.083% inhalation solution 2.5 mgIndications:COPD, group D, by GOLD 2017 classification ([facility]) 2.5 mg NEBULIZER PRN 03/03/2023 03/02/2024 Acti ve Albuterol Sulfate (Proventil) (5 MG/ML) 0.5% *conc* inhalation solution 2.5 mgIndications:COPD, group D, by GOLD 2017 classification ([facility]) 2.5 mg NEBULIZER PRN 03/03/2023 03/02/2024 Acti ve documented as of this encounter (statuses as of 06/22/2023) Active Problems Problem Noted Date Decreased functional [...] as of this encounter (statuses as of 06/22/2023) Resolved Problems Problem Noted Date Resolved Date [...] as of this encounter (statuses as of 06/22/2023) Immunizations Name Administration Dates Next Due H1N1 [...] of this encounter Progress Notes * Kim Juarez CPhT - 06/22/2023 8:34 AM EDT Contacts Type Contact Phone/Fax 06/22/2023 08:32 AM EDT Phone (Outgoing) Kimberly Kendall (Self) [phone] (M) Subjective Patient Findings Negatives: Signs/symptoms of bleeding, Change in health, Change in activity, Upcoming invasive procedure, Missed doses, Extra doses, Change in medications, Change in diet/appetite, Bruising MYG sent Advised patient to contact Anticoagulation Clinic if any unusual bruising or bleeding, recent illness, changes in medication, or questions/concerns. PT/INR results, Coumadin dose instructions, and next PT/INR date communicated as noted by Pharmacist: Yes Kim Juarez CPhT 06/22/2023, 8:34 AM * Kim Mercado [facility] - 06/22/2023 8:15 AM EDT Coumadin Clinic (region specific) Objective Current Warfarin Dose As of 06/22/2023 Warfarin maintenance plan: 2.5 mg (5 mg x 0.5) every Mon, Fri; 5 mg (5 mg x 1) all other days INR Result As of 06/22/2023 INR goal: 2.0-3.0 INR used for dosin.4 (06/21/2023) Assessment & Plan Warfarin Plan As of 06/22/2023 Full warfarin instructions: 2.5 mg every Mon, Fri; 5 mg all other days No change documented: Kim Mercado RPh Next INR check: 06/28/2023 Repeat PT/INR in 1 week(s) Weekly dose: not changed Additional Dosing Information: Description GML Also sent MyG after trying to call Tech to contact patient with dose instructions as noted. Kim Mercado RPh 06/22/2023, 8:15 AM documented in this encounter Plan of Treatment Upcoming Encounters Date Type Specialty Care Team Description 06/28/2023 Telemedicine Urology Juan José Walters MD [address] [facility] [place] [id number] 06/29/2023 Anticoagulation Pharmacy [facility] [address] [place] [address] 07/07/2023 Office Visit Cardiology Jerry Pacheco, [address] [facility] [place] [address] 07/21/2023 Telemedicine Psychiatry Hugo Alcantara MD [address] [place] [address] 08/04/2023 Office Visit Infectious Disease Julieta Reyes MD [address] [place] [address] Scheduled Procedures Name Priority Associated [...] 02/16/2022 LUNG CANCER SCREENING - USE SMARTSET [id number] Completed 2023, 03/16/2022, 08/24/2018, Additional history exists [...] monitoring documented in this encounter Care Teams Director Revenue Relationship Specialty Start Date End Date Roger Alexandra MD [address] [place] [address] PCP - General Family Medicine 12/29/19 documented as of this encounter
--- OUTSIDE RECORDS SUMMARY | 2023-07-25 04:11 | External Medical Summary | Summary of Care ---
Author Name Unknown Organization [facility] Address [address] [facility] [address] Phone [phone] Care Team Providers Care Shipping And Receiving Material Handler Name Role Phone Roger Alexandra MD Primary Care Provider [phone] Reason for Visit * Reason Comments Dosage Adjustment Via Phone (anticoag Cl inic) Encounter Details Date Type Department Care Team Description 06/01/2023 Anticoagulation Pharmacy Call Center [address] [facility] [place] [address] [facility] [address] [place] [address] Anticoagulation management encounter* Allergies Active Allergy Reactions Severity Noted Date Comments Aspirin Unknown 12/12/2007 von Willebrand's disease Salicylates 03/01/2000 von Willebrand's disease documented as of this encounter (statuses as of 06/01/2023) Medications Medication Sig Dispensed Refills Start Date [...] group D, by GOLD 2017 classification ([facility]),Chronic hypoxemic respiratory failure ([facility]) Use with nebulized meds 1 Each 0 09/16/2022 Active Full Kit Nebulizer SetIndications:COPD, group D, by GOLD 2017 classification ([facility]),Chronic hypoxemic respiratory failure ([facility]) Use with nebulizer 1 Each 0 09/16/2022 [...] (Feosol) 1 Tablet. 0 01/12/2023 Active Nystatin 743886 UNIT/GM External Powder (Nyamyc) apply to affected [...] [facility] 90 Tablet 3 05/15/2023 Active Baclofen 10 MG Oral Tablet (Lioresal)Indication s:Chronic bilateral low back pain without sciatica Take 1 Tablet by mouth 3 times a day as needed for Muscle spasms. 90 Tablet 0 05/17/2023 Active Ramelteon 8 MG Oral Tablet (Rozerem) [...] Pain, Moderate. 120 Tablet 0 2023 Active Hospital, Clinic, or Other Facility Administered Medication Ordered Dose Route Frequency Start Date End Date Status Albuterol Sulfate (Proventil) (2.5 MG/3ML) 0.083% inhalation solution 2.5 mgIndications:COPD, group D, by GOLD 2017 classification ([facility]) 2.5 mg NEBULIZER PRN 03/03/2023 03/02/2024 Acti ve Albuterol Sulfate (Proventil) (5 MG/ML) 0.5% *conc* inhalation solution 2.5 mgIndications:COPD, group D, by GOLD 2017 classification ([facility]) 2.5 mg NEBULIZER PRN 03/03/2023 03/02/2024 Acti ve documented as of this encounter (statuses as of 06/01/2023) Active Problems Problem Noted Date Decreased functional [...] as of this encounter (statuses as of 06/01/2023) Resolved Problems Problem Noted Date Resolved Date [...] 02/04/2006 12/21/2008 Atrial septal aneurysm 02/04/2006 9 [facility] current use 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 0 06/01/2005 [...] as of this encounter (statuses as of 06/01/2023) Immunizations Name Administration Dates Next Due H1N1 [...] of this encounter Progress Notes * DANIEL Morley - 06/01/2023 11:59 AM EDT Contacts Type Contact Phone/Fax 06/01/2023 11:58 AM EDT Phone (Outgoing) Kimberly Kendall (Self) [phone] (M) Left Message PT/INR results, Coumadin dose instructions, and next PT/INR date communicated as noted by Pharmacist: Yes DANIEL Morley 06/01/2023, 11:59 AM * Kim Mercado RPh - 06/01/2023 8:34 AM EDT Coumadin Clinic (region specific) Current Warfarin Dose As of 06/01/2023 Warfarin maintenance plan: 2.5 mg (5 mg x 0.5) every Mon; 5 mg (5 mg x 1) all other days INR Result As of 06/01/2023 INR goal: 2.0-3.0 INR used for dosin.8 (05/31/2023) Warfarin Plan As of 06/01/2023 Full warfarin instructions: 2.5 mg every Mon; 5 mg all other days No change documented: Kim Mercaod RPh Next INR check: 06/14/2023 Repeat PT/INR in 2 week(s) Weekly dose: not changed Additional Dosing Information: Description [facility] Also sent MyG after trying to call [employer] to contact patient with dose instructions as noted. Kim Mercado RPh 06/01/2023, 8:34 AM documented in this encounter Plan of Treatment Upcoming Encounters Date Type Specialty Care Team Description 06/14/2023 Laboratory Laboratory Processing [facility] Mobile Home Draw [address] [place] [address] 06/28/2023 Telemedicine Urology Juan José Walters MD [address] [place] [address] 07/07/2023 Office Visit Cardiology Jerry Pacheco, DO [address] [place] [address] 07/21/2023 Telemedicine Psychiatry Hugo Alcantara MD [address] [place] [address] 08/04/2023 Office Visit Infectious Disease Julieta Reyes MD [address] [place] [address] Scheduled Procedures Name Priority Associated [...] 02/16/2022 LUNG CANCER SCREENING - USE SMARTSET [id number] Completed 2023, 03/16/2022, 08/24/2018, Additional history exists [...] monitoring documented in this encounter Care Teams Shipping And Receiving Material Handler Relationship Specialty Start Date End Date Roger Alexandra MD [address] [place] [address] PCP - General Family Medicine 12/29/19 documented as of this encounter
--- OUTSIDE RECORDS SUMMARY | 2023-07-25 04:11 | External Medical Summary | Summary of Care ---
Author Name Unknown Organization [facility] Address [address] [place] [address] Phone [phone] Care Team Providers Care Precision Dancer Name Role Phone Roger Alexandra MD Primary Care Provider [phone] Reason for Visit * Reason Comments Dosage Adjustment Via Phone (anticoag Cl inic) Encounter Details Date Type Department Care Team Description 06/14/2023 Anticoagulation Pharmacy Call Center [address] [place] [address] [facility] [address] [place] [address] Type 2 diabetes mellitus with hemoglobin A1c goal of less than 7.0% ([facility])* Allergies Active Allergy Reactions Severity Noted Date Comments Aspirin Unknown 12/12/2007 von Willebrand's disease Salicylates 03/01/2000 von Willebrand's disease documented as of this encounter (statuses as of 06/14/2023) Medications Medication Sig Dispensed Refills Start Date End Date Status oxygen IN GASIndications:Chron ic hypoxemic respiratory failure (HCC),COPD, group D, by GOLD 2017 classification ([facility]) Use 2 LPM at rest, 4 LPM with exertion and with sleep. 1 Each 0 2022 Active Additional Information Patient taking differently: Use 4 LPM at rest, 5 LPM with exertion and 4 LPM with sleep., Reported on 12/16/2022 Disposable Brief X-LargeIndications:O veractive bladder Attends X-Large Super Absorb Underwear 32 Each 2 09/08/2022 Active Nebulizer DeviceIndications:CO PD, group D, by GOLD 2017 classification ([facility]),Chronic hypoxemic respiratory failure ([facility]) Use with nebulized meds 1 Each 0 09/16/2022 Active Full Kit Nebulizer SetIndications:COPD, group D, by GOLD 2017 classification ([facility]),Chronic hypoxemic respiratory failure ([facility]) Use with nebulizer 1 Each 0 09/16/2022 [...] (Feosol) 1 Tablet. 0 01/12/2023 Active Nystatin 812841 UNIT/GM External Powder (Nyamyc) apply to affected [...] mgIndications:COPD, group D, by GOLD 2017 classification ([facility]) 2.5 mg NEBULIZER PRN 03/03/2023 03/02/2024 Acti ve Albuterol Sulfate (Proventil) (5 MG/ML) 0.5% *conc* inhalation solution 2.5 mgIndications:COPD, group D, by GOLD 2017 classification ([facility]) 2.5 mg NEBULIZER PRN 03/03/2023 03/02/2024 Acti ve documented as of this encounter (statuses as of 06/14/2023) Active Problems Problem Noted Date Decreased functional [...] as of this encounter (statuses as of 06/14/2023) Resolved Problems Problem Noted Date Resolved Date [...] 12/21/2008 Atrial septal aneurysm 02/04/2006 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 CEREBROVASC DISEASE NEC 02/01/2004 12/29/19 Pelvic pain in female 03/26/2003 12/29/2019 OBESITY, UNSPECIFIED 07/19/2002 02/06/2010 Overview: Per Obesity Taxonomy EXT ASTHMA W-O STAT ASTH 010 Tobacco use disorder 04/23/2021 documented as of this encounter (statuses as of 06/14/2023) Immunizations Name Administration Dates Next Due H1N1 [...] Progress Notes * Kim Mercado RPh - 06/14/2023 11:39 AM EDT Agree with plan. Kim Mercado Rph, Pharm.D. Clinical Pharmacist Telepharmacy [phone] 06/14/2023,11:39 AM * Kayla Osorio, PHARM Student - 06/14/2023 11:28 AM EDT Images from the original note were not included. Medication Therapy Disease Management - Anticoagulation Patient: Kimberly Kendall : 1960 Contacts Type Contact Phone/Fax 06/14/2023 11:41 AM EDT Phone (Outgoing) Kimberly Kendall (Self) [phone] (M) Current Warfarin Dose As of 06/14/2023 Warfarin maintenance plan: 2.5 mg (5 mg x 0.5) every Mon, Fri; 5 mg (5 mg x 1) all other days Patient-Reported Symptoms: Patient Findings Positives: Signs/symptoms of bleeding (Patient has been having nose bleeds pretty often. Patient unsure of how long they have been lasting, but states it is longer than usual. Patient counseled on how to get nosebleeds to stop and advised to go to ER if lasting longer than 20 minutes.), Change in health (Patient states she has been having diarrhea all the time, PCP aware of this.) Negatives: Upcoming invasive procedure, Missed doses, Extra doses, Change in medications, Change indiet/appetite, Bruising Nose bleeds: Patient reports experiencing nose bleeds. Reviewed ways to control an acute nose bleed(pinch nostril; apply cold compress to bridge of nose) and when to seek medical attention. Advised patient that majority of nose bleeds can be attributable to dry nasal passages and discussed ways tohelp prevent future episodes. Saline nasal spray one squirt in each nostril 4-5 times a day; apply s mall amount of petroleum jelly to nostrils at bedtime; use humidifier; do not pick/blow nose. INR Result As of 06/14/2023 INR goal: 2.0-3.0 INR used for dosin.6 (06/14/2023) Warfarin Plan As of 06/14/2023 Full warfarin instructions: 06/14: Hold; 06/15: Hold; Otherwise 2.5 mg every Mon, Fri; 5 mg all other days Next INR check: 06/21/2023 Additional Dosing Information: Description [facility] Also sent MyG after trying to call Repeat PT/INR in 1 week(s) Weekly dose: not changed Kayla Osorio, PHARM Student Clinical Pharmacist 06/14/2023, 11:53 AM documented in this encounter Plan of Treatment Upcoming Encounters Date Type Specialty Care Team Description 06/21/2023 Laboratory Laboratory Processing [facility] [place] Mobile Home Draw [address] [place] [address] 06/22/2023 [facility] [address] [facility] [place] [address] 06/28/2023 Telemedicine Urology Juan José Walters MD [address] [facility] [address] [place] [address] 07/07/2023 Office Visit Cardiology Jerry Pacheco, DO [address] [place] [address] 07/21/2023 Telemedicine Psychiatry Hugo Alcantara MD [address] [place] [address] 08/04/2023 Office Visit Infectious Disease Julieta Reyes MD [address] [place] [address] Scheduled Procedures Name Priority Associated Diagnoses Date/Ti [...] 02/16/2022 LUNG CANCER SCREENING - USE SMARTSET [id number] Completed 2023, 03/16/2022, 08/24/2018, Additional history exists [...] as of this encounter Visit Diagnoses Diagnosis Type 2 diabetes mellitus with hemoglobin A1c goal of less than 7.0% (HCC)- Primary documented in this encounter Care Teams Precision Dancer Relationship Specialty Start Date End Date Roger Alexandra MD [address] [place] [address] PCP - General Family Medicine 12/29/19 documented as of this encounter
--- OUTSIDE RECORDS SUMMARY | 2023-07-25 04:11 | External Medical Summary ---
Author Name Unknown Address Unknown Organization [facility] [address] [place] [id number] Laboratory Report Ordering Provider Test Date Status SUMAN STANFORD 06/21/2023 09:27:00 Final Observation Date Value Abnormality Reference (Units ) Status PT 06/21/2023 09:27:00 26.6 Above high normal 11 .6-15.2 (seconds) Final INR 06/21/2023 09:27:00 2.4 Above high normal 0. 8-1.2 Final Performing Location [facility] [address] [place] [address]
--- OUTSIDE RECORDS SUMMARY | 2023-07-25 04:11 | External Medical Summary | Summary of Care ---
Author Name Unknown Organization [facility] Address [address] [place] [address] Phone [phone] Care Team Providers Care Plumber Cub Name Role Phone Roger Alexandra MD Primary Care Provider [phone] Reason for Visit * Reason Onset Date Comments Appointment 06/24/2023 Encounter Details Date Type Department Care Team Description 06/24/2023 [facility] [address] [place] [address] Services, Scheduling [address] [place] [address] Appointment (/) Allergies Active Allergy Reactions Severity Noted Date Comments Aspirin Unknown 12/12/2007 von Willebrand's disease Salicylates 03/01/2000 von Willebrand's disease documented as of this encounter (statuses as of 06/25/2023) Medications Medication Sig Dispensed Refills Start Date End Date Status oxygen IN GASIndications:Respite Coordinator 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 respiratory failure (HCC),COPD, group D, by GOLD 2017 classification ([facility]) Use 2 LPM at rest, 4 LPM with exertion and with sleep. 1 Each 0 2022 Active Additional Information Patient taking differently: Use 4 LPM at rest, 5 LPM with exertion and 4 LPM with sleep., Reported on 12/16/2022 Disposable Brief X-LargeIndications: Overactive bladder Attends X-Large Super Absorb Underwear 32 Each 2 09/08/2022 Active Nebulizer DeviceIndications:C OPD, group D, by GOLD 2017 classification ([facility]),Chronic hypoxemic respiratory failure ([facility]) Use with nebulized meds 1 Each 0 09/16/2022 Active Full Kit Nebulizer SetIndications:COPD , group D, by GOLD 2017 classification ([facility]),Chronic hypoxemic respiratory failure ([facility]) Use with nebulizer 1 Each 0 09/16/2022 [...] (Feosol) 1 Tablet. 0 01/12/2023 Active Nystatin 505170 UNIT/GM External Powder (Nyamyc) apply to affected [...] bedtime. With food.. 20 Capsule 0 04/16/2023 Discontinu ed(Refill) Hospital, Clinic, or Other Facility Administered Medication Ordered Dose Route Frequency Start Date End Date Status Albuterol Sulfate (Proventil) (2.5 MG/3ML) 0.083% inhalation solution 2.5 mgIndications:COPD, group D, by GOLD 2017 classification ([facility]) 2.5 mg NEBULIZER PRN 03/03/2023 03/02/2024 Acti ve Albuterol Sulfate (Proventil) (5 MG/ML) 0.5% *conc* inhalation solution 2.5 mgIndications:COPD, group D, by GOLD 2017 classification ([facility]) 2.5 mg NEBULIZER PRN 03/03/2023 03/02/2024 Acti [...] 12/21/2008 Atrial septal aneurysm 02/04/2006 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 She asks for call back on her cell phone [phone]. Thank you! * Telephone Encounter - RUFINA Lozoya - 06/24/2023 2:13 PM EDT LMOM for son edward to confirm new [facility] telemed for 07/07 at 830/9am... to pt and no answer and vm is full documented in this encounter Plan of Treatment Upcoming Encounters Date Type Specialty Care Team Description 06/28/2023 Laboratory [place] [facility] [place] [facility] [address] [facility] [address] 06/29/2023 [facility] [place] [address] [facility] [place] [address] 06/29/2023 Telemedicine Urology Juan José Walters MD [address] [place] [place] [address] 07/07/2023 [facility]medicine [facility] Sharmaine Johns PA-C [address] [place] [address] Kim Carrizales, Community Health Boot Turner [address] [place] [address] 07/07/2023 Office Visit Cardiology Jerry Pacheco, DO [address] [place] [address] 07/21/2023 Telemedicine Psychiatry Hugo Alcantara MD [address] [place] [address] 08/04/2023 Office Visit Infectious Disease Julieta Reyes MD [address] [place] [address] Scheduled Procedures Name Priority Associated [...] 02/16/2022 LUNG CANCER SCREENING - USE SMARTSET 06419 Completed 2023, 03/16/2022, 08/24/2018, Additional history exists [...] filedocumented as of this encounter Care Teams Plumber Cub Relationship Specialty Start Date End Date Roger Alexandra MD [address] [place] [address] PCP - General Family Medicine 12/29/19 documented as of this encounter
--- OUTSIDE RECORDS SUMMARY | 2023-07-25 04:11 | External Medical Summary | Summary of Care ---
Author Name Unknown Organization [facility] Address [address] [facility] [place] [address] Phone [phone] Care Team Providers Care Housekeeper Supervisor Name Role Phone Jeevan Mclean MD Primary Care Provider [phone] Reason for Visit * Reason Onset Date Comments Medication Refill 06/25/2023 Encounter Details Date Type Department Care Team Description 06/25/2023 Top And Seat Cover Fitter Telephone [facility] [address] [facility] [place] [address] Yara Morris, stamp press operator Refill Allergies Active Allergy Reactions Severity Noted Date Comments Aspirin Unknown 12/12/2007 von Willebrand's disease Salicylates 03/01/2000 von Willebrand's disease documented as of this encounter (statuses as of 06/25/2023) Medications Medication Sig Dispensed Refills Start Date End Date Status oxygen IN GASIndications:Unarmed Security Guard 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 respiratory failure (HCC),COPD, group D, by GOLD 2017 classification ([facility]) Use 2 LPM at rest, [...] OPD, group D, by GOLD 2017 classification ([facility]),Chronic hypoxemic respiratory failure (HCC) Use with nebulized meds 1 Each 0 09/16/2022 Active Full Kit Nebulizer SetIndications:COPD , group D, by GOLD 2017 classification ([facility]),Chronic hypoxemic respiratory failure ([facility]) Use with nebulizer 1 Each [...] (Feosol) 1 Tablet. 0 01/12/2023 Active Nystatin 049268 UNIT/GM External Powder (Nyamyc) apply to affected [...] mgIndications:COPD, group D, by GOLD 2017 classification ([facility]) 2.5 mg NEBULIZER PRN 03/03/2023 03/02/2024 Acti ve Albuterol Sulfate (Proventil) (5 MG/ML) 0.5% *conc* inhalation solution 2.5 mgIndications:COPD, group D, by GOLD 2017 classification ([facility]) 2.5 mg NEBULIZER PRN 03/03/2023 [...] 02/04/2006 12/21/2008 Atrial septal aneurysm 02/04/2006 9 assisted current use 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 0 06/01/2005 [...] Encounter - Yara Morris RN - 06/25/2023 10:53 AM EDT Discussed with Dr. Mclean, feels if patient is experiencing hypoxia and pain causing her to be non ambulatory - she needs surinder in ER. Spoke with patient and made aware. She would like to try antibiotics to see if symptoms improve. Instructed for worsening or if oxygen saturations do not improve from 80's% on 4L she should be seen in ER. She verbalizes understanding. * Telephone Encounter - Jeevan Mclean MD - 06/25/2023 10:19 AM EDTSigned Prescriptions: Disp Refills Acetaminophen-Codeine 300-30 MG Oral [id number] Ta*0 Sig: Take 1 Tablet by mouth every 6 hours as needed for Pain, Moderate. Authorizing Provider: JEEVAN MCLEAN * Telephone Encounter - Yara Morris RN - 06/25/2023 10:00 AM EDT Patient called in asking for a refill as she will be due for this on Wednesday. She does not have anyone to garbage pick up worker the prescription over the weekend. Also gave [...] Care Team Description 06/28/2023 Laboratory Laboratory [place] [facility] [place] [facility] Mobile Home Draw [address] [place] [address] 06/29/2023 [facility] [address] [place] [address] 06/29/2023 Telemedicine Urology Juan José Walters MD [address] [facility] [address] [place] [address] 07/07/2023 Telemedicine [facility] Sharmaine Johns PA-C [address] [place] [address] Kim Carrizales, [facility] Director [address] [place] [address] 07/07/2023 Office Visit Cardiology Jerry Pacheco, DO [address] [place] [address] 07/21/2023 Telemedicine Psychiatry Hugo Alcantara MD [address] [place], [place] [address] 08/04/2023 Office Visit Infectious Disease Julieta Reyes MD [address] [place] [address] Scheduled Procedures Name Priority Associated Diagnoses Date/Ti [...] 02/16/2022 LUNG CANCER SCREENING - USE SMARTSET 10150 Completed 2023, 03/16/2022, 08/24/2018, Additional history exists [...] sciatica documented in this encounter Care Teams Housekeeper Supervisor Relationship Specialty Start Date End Date Jeevan Mclean MD [address] [place] [address] PCP - General Family Medicine 12/29/19 documented as of this encounter
--- OUTSIDE RECORDS SUMMARY | 2023-07-25 04:11 | External Medical Summary | Summary of Care ---
Author Name Unknown Organization [facility] Address [address] [place] [address] Phone [phone] Care Team Providers Care Cloth Napping Supervisor Name Role Phone Roger Alexandra MD Primary Care Provider [phone] [phone] Reason for Visit * Reason Onset Date Comments Appointment 06/24/2023 Encounter Details Date Type Department Care Team Description 06/24/2023 [facility] [address] [place] [address] Services, Scheduling [address] [place] [address] Appointment (/) Allergies Active Allergy Reactions Severity Noted Date Comments Aspirin Unknown 12/12/2007 von Willebrand's disease Salicylates 03/01/2000 von Willebrand's disease documented as of this encounter (statuses as of 06/25/2023) Medications Medication Sig Dispensed Refills Start Date End Date Status oxygen IN GASIndications: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 She is agreeable * Telephone Encounter - Yara Morris RN - 06/25/2023 10:15 AM EDT I spoke with patient today, she would like a sooner appointment with Lashae if possible? She asks for call back on her cell phone [phone]. Thank you! * Telephone Encounter - RUFINA Lozoya - 06/24/2023 2:13 PM EDT LMOM for son edruchi to confirm new kaco telemed for 07/07 at 830/9am... to pt and no answer and vm is full documented in this encounter Plan of Treatment Upcoming Encounters Date Type Specialty Care Team Description 06/28/2023 Laboratory Laboratory Processing [facility] [place] Mobile Home Draw [address] [place] [address] 06/29/2023 [facility] [address] [place] [address] 06/29/2023 Telemedicine Urology Juan José Walters MD [address] [place] [address] 07/02/2023 Telemedicine [facility] Sharmaine Johns PA-Roz [address] [place] [address] Aliya Brooks, Community [facility] Home Performance Consultant [address] [place] [address] 07/07/2023 Office Visit Cardiology Jerry Pacheco, DO [address] [place] [address] 07/21/2023 Telemedicine Psychiatry Hugo Alcantara MD [address] [place] [address] 08/04/2023 Office Visit Infectious Disease Julieta Reyes MD [address] [place] [address] Scheduled Procedures Name Priority Associated Diagnoses Date/Ti [...] 02/16/2022 LUNG CANCER SCREENING - USE SMARTSET 23736 Completed 2023, 03/16/2022, 08/24/2018, Additional history exists [...] filedocumented as of this encounter Care Teams Cloth Napping Supervisor Relationship Specialty Start Date End Date Roger Alexandra MD [address] [place] [address] PCP - General Family Medicine 12/29/19 documented as of this encounter
--- OUTSIDE RECORDS SUMMARY | 2023-07-25 04:11 | External Medical Summary ---
Author Name Unknown Address Unknown Organization [facility] [place] [address] [place] [address] Laboratory Report Ordering Provider Test Date Status SUMAN STANFORD 06/14/2023 09:27:00 Final Observation Date Value Abnormality Reference (Units ) Status PT 06/14/2023 09:27:00 50.9 Above high normal 11 .6-15.2 (seconds) Final Performing Location [facility] [address] [place] [address]
--- OUTSIDE RECORDS SUMMARY | 2023-07-25 04:11 | External Medical Summary | Summary of Care ---
Author Name Unknown Organization [facility] Address [address] [place] [address] Phone [phone] Care Team Providers Care Principal Network Architect Name Role Phone Jeevan Mclean MD Primary Care Provider [phone] [phone] Reason for Visit * Reason Onset Date Comments Medication Refill 06/21/2023 Encounter Details Date Type Department Care Team Description 06/21/2023 Refill [facility] [address] [place] [address] Yara Morris, supervisor scrap preparation bilateral low back pain without sciatica Allergies Active Allergy Reactions Severity Noted Date Comments Aspirin Unknown 12/12/2007 von Willebrand's disease Salicylates 03/01/2000 von Willebrand's disease documented as of this encounter (statuses as of 06/21/2023) Medications Medication Sig Dispensed Refills Start Date End Date Status oxygen IN GASIndications:Child Neurologist 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 respiratory failure (HCC),COPD, group D, [...] OPD, group D, by GOLD 2017 classification ([facility]),Chronic hypoxemic respiratory failure ([facility]) Use with nebulized meds 1 Each 0 09/16/2022 Active Full Kit Nebulizer SetIndications:COPD , group D, by GOLD 2017 classification ([facility] [...] (Feosol) 1 Tablet. 0 01/12/2023 Active Nystatin 547160 UNIT/GM External Powder (Nyamyc) apply to affected area twice a day 60 g 1 05/10/2023 Active Furosemide 40 MG Oral Tablet (Lasix)Indications: [...] Muscle spasms. 90 Tablet 0 06/21/2023 Active Baclofen 10 MG Oral Tablet (Lioresal)Indicatio ns:Chronic bilateral low back pain without sciatica Take 1 Tablet by mouth 3 times a day as needed for Muscle spasms. 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 Authorizing Provider: JEEVAN MCLEAN * Telephone Encounter - Yara Morris RN - 06/21/2023 10:04 AM EDT Patient requesting refill of both tylenol III and baclofen, She is not due for the tylenol yet, will pend baclofen Per PDMP acetaminophen with codeine filled for 120 tabs for 30 days on 05/28/23. Pended refill, if agreeable Dr. Mclean, Thank you documented in this encounter Plan of Treatment Upcoming Encounters Date Type Specialty Care Team Description 06/22/2023 [facility] [address] [facility] [address] 06/28/2023 Telemedicine Urology Juan José Walters MD [address] [place] [address] 07/07/2023 Office Visit Cardiology Jerry Pacheco, DO [address] [place] [address] 07/21/2023 Telemedicine Psychiatry Hugo Alcantara MD [address] [place] [address] 08/04/2023 Office Visit Infectious Disease Julieta Reyes MD [address] [place] [address] Scheduled Procedures Name Priority Associated [...] 02/16/2022 LUNG CANCER SCREENING - USE SMARTSET 25569 Completed 2023, 03/16/2022, 08/24/2018, Additional history exists [...] sciatica documented in this encounter Care Teams Principal Network Architect Relationship Specialty Start Date End Date Jeevan Mclean MD [address] [place] [address] PCP - General Family Medicine 12/29/19 documented as of this encounter
--- OUTSIDE RECORDS SUMMARY | 2023-07-25 04:11 | External Medical Summary | Summary of Care ---
Author Name Unknown Organization [facility] Address [address] [place] [address] Phone [phone] Care Team Providers Care Internal Sales Name Role Phone Roger Alexandra MD Primary Care Provider [phone] [phone] Reason for Visit * Reason Onset Date Comments case management 05/31/2023 Encounter Details Date Type Department Care Team Description 05/31/2023 Building Coordinator Telephone Care Coordination [address] [place], [place] [id number] Saray Jones LSW [address] [place], [place] [id number] case management Allergies Active Allergy Reactions Severity Noted Date Comments Aspirin Unknown 12/12/2007 von Willebrand's disease Salicylates 03/01/2000 von Willebrand's disease documented as of this encounter (statuses as of 05/31/2023) Medications Medication Sig Dispensed Refills Start Date [...] PD, group D, by GOLD 2017 classification ([facility]),Chronic hypoxemic respiratory failure ([facility]) Use with nebulized meds 1 Each 0 09/16/2022 Active Full Kit Nebulizer SetIndications:COPD, group D, by GOLD 2017 classification ([facility]),Chronic hypoxemic respiratory failure ([facility]) Use with nebulizer 1 Each 0 09/16/2022 [...] (Feosol) 1 Tablet. 0 01/12/2023 Active Nystatin 944741 UNIT/GM External Powder (Nyamyc) apply to affected [...] mgIndications:COPD, group D, by GOLD 2017 classification ([facility]) 2.5 mg NEBULIZER PRN 03/03/2023 03/02/2024 Acti ve Albuterol Sulfate (Proventil) (5 MG/ML) 0.5% *conc* inhalation solution 2.5 mgIndications:COPD, group D, by GOLD 2017 classification ([facility]) 2.5 mg NEBULIZER PRN 03/03/2023 03/02/2024 Acti ve documented as of this encounter (statuses as of 05/31/2023) Active Problems Problem Noted Date Decreased functional [...] as of this encounter (statuses as of 05/31/2023) Resolved Problems Problem Noted Date Resolved Date [...] 02/04/2006 12/21/2008 Atrial septal aneurysm 02/04/2006 9 group home current use 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 0 [...] as of this encounter (statuses as of 05/31/2023) Immunizations Name Administration Dates Next Due H1N1 [...] * Telephone Encounter - PARVEZ Mason - 05/31/2023 1:35 PM EDT Images from the original note were not included. [facility] Goal Review S. [facility] spoke w/ pt over the phone. Pt confirmed name and . Pt reports that she is "doing the same" when asked how she was. Pt reports feelings of depression and difficulty sleeping. Pt scored a 17 on the PHQ-9 respectively. Pt saw Psychiatry 1 week ago where they adjusted her medications to assist w/ sleeping. Pt reports no changes as of yet. [facility] discussed therapy and list of providers. Pt stated "therapy isn't going to bring my daughter or my back". [facility] provided emotional supportand discussed ways in which therapy can support pt now. Pt verbalized understanding. [facility] resent list of therapy providers to pt's email. Pt verbalized understanding. O.Over the phone A. Pt spoke in flat tone of voice- Reports feelings of depression but denies SI/HI. Pt is followingup w/ psychiatry in three weeks. Reviewed red flags and [facility] f/u. Pt verbalized understanding P. [facility] to f/u w/ pt in 1 month after next psychiatry appointment to review pt's medications. Saray Jones RN FIRST ASSISTANT, RCP Behavioral Health Building Coordinator (Pronouns: she, her, hers) Care Coordination Integration nurse practitioner home assessments documented in this encounter Plan of Treatment Upcoming Encounters Date Type Specialty Care Team Description 06/01/2023 [facility], [place] [address] [address] [facility] [place] [facility] [place] 06/28/2023 Telemedicine Urology Juan José Walters MD [address] [place] [address] 07/07/2023 Office Visit Cardiology Jerry Pacheco, DO [address] [place] [address] 07/21/2023 Telemedicine Psychiatry Hugo Alcantara MD [address] [place] [address] 08/04/2023 Office Visit Infectious Disease Julieta Reyes MD [address] [place] [address] Scheduled Procedures Name Priority Associated [...] 02/16/2022 LUNG CANCER SCREENING - USE SMARTSET [id number] Completed 2023, 03/16/2022, 08/24/2018, Additional history exists [...] filedocumented as of this encounter Care Teams Internal Sales Relationship Specialty Start Date End Date Roger Alexandra MD [address] [place] [address] PCP - General Family Medicine 12/29/19 documented as of this encounter
--- OUTSIDE RECORDS SUMMARY | 2023-07-25 04:11 | External Medical Summary | Summary of Care ---
Author Name Unknown Organization [facility] Address [address] [place] [address] Phone [phone] Care Team Providers Care Signals Collector/Analyst Name Role Phone Roger Alexandra MD Primary Care Provider [phone] [phone] Reason for Visit * Reason Onset Date Comments Appointment 06/24/2023 Encounter Details Date Type Department Care Team Description 06/24/2023 Telephone [facility] [place] [address] [place] [address] Services, Scheduling [address] [place] [address] Appointment (/) Allergies Active Allergy Reactions Severity Noted Date Comments Aspirin Unknown 12/12/2007 von Willebrand's disease Salicylates 03/01/2000 von Willebrand's disease documented as of this encounter (statuses as of 06/24/2023) Medications Medication Sig Dispensed Refills Start Date End Date Status oxygen IN GASIndications:Chron ic hypoxemic respiratory failure (HCC),COPD, group D, by GOLD 2017 classification ([facility]) Use 2 LPM at rest, [...] (Feosol) 1 Tablet. 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 [address] [place] [address] 07/07/2023 Telemedicine [facility] Sharmaine Johns PA-Roz [address] [place] [address] Kim Carrizales, Community Health Supervisor [facility] [employer] [address] [place] [address] 07/07/2023 Office Visit Cardiology Jerry Pacheco, DO [address] [facility] [place] [address] 07/21/2023 Telemedicine Psychiatry Hugo Alcantara MD [address] [place] [address] 08/04/2023 Office Visit Infectious Disease Julieta Reyes MD [address] [place] [address] Scheduled Procedures Name Priority Associated Diagnoses Date/Ti [...] 02/16/2022 LUNG CANCER SCREENING - USE SMARTSET [id number] Completed 2023, 03/16/2022, 08/24/2018, Additional history exists [...] filedocumented as of this encounter Care Teams Signals Collector/Analyst Relationship Specialty Start Date End Date Roger Alexandra MD [address] [place] [address] PCP - General Family Medicine 12/29/19 documented as of this encounter
--- OUTSIDE RECORDS SUMMARY | 2023-07-25 04:12 | External Medical Summary | Summary of Care ---
Author Name Unknown Organization [facility] Address [address] [place] [address] Phone [phone] Care Team Providers Care Trader Name Role Phone Jeevan Mclean MD Primary Care Provider [phone] Reason for Visit * Reason Onset Date Comments Medication Refill 05/24/2023 Encounter Details Date Type Department Care Team Description 05/24/2023 Refill Family [facility] [address] [place] [address] Jeevan Mclean MD [address] [place] [id number] Chronic bilateral low back pain without sciatica Allergies Active Allergy Reactions Severity Noted Date Comments Aspirin Unknown 12/12/2007 von Willebrand's disease Salicylates 03/01/2000 von Willebrand's disease documented as of this encounter (statuses as of 05/26/2023) Medications Medication Sig Dispensed Refills Start Date End Date Status oxygen IN GASIndications:Suture Polisher 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 respiratory failure (HCC),COPD, group D, [...] (Feosol) 1 Tablet. 0 01/12/2023 Active Nystatin 528796 UNIT/GM External Powder (Nyamyc) apply to affected [...] 05/15/2023 Active Baclofen 10 MG Oral Tablet (Lioresal)Indicatio ns:Chronic bilateral low back pain without sciatica Take 1 Tablet by mouth 3 times a day as needed for Muscle spasms. 90 Tablet 0 05/17/2023 Active Acetaminophen-Codei ne 300-30 MG Oral TabletIndications:C hronic bilateral low back pain without sciatica Take 1 Tablet by mouth every 6 hours as needed for Pain, Moderate. 120 Tablet 0 05/26/2023 Active Ramelteon 8 MG Oral Tablet (Rozerem) [...] needed for Pain, Moderate. 120 Tablet 0 04/20/2023 3 Discontinu ed(Refill) Hospital, Clinic, or Other [...] as of this encounter (statuses as of 05/26/2023) Active Problems Problem Noted Date Decreased functional [...] as of this encounter (statuses as of 05/26/2023) Resolved Problems Problem Noted Date Resolved Date [...] 02/04/2006 12/21/2008 Atrial septal aneurysm 02/04/2006 9 [facility] current use 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 0 06/01/2005 [...] as of this encounter (statuses as of 05/26/2023) Immunizations Name Administration Dates Next Due H1N1 2009 Influenza, IM 12/19/2009 Pneumococcal Polysaccharide PPV23 (Pneumovax) 03/20/2009 Seasonal Influenza Virus Vac cine, Unspecified Formulation 11/11/2021,09/15/2020,10/03/2017,08/21,08/01/2014,07/30/2014,08/09/2013 ,08/03/2012,08/24/2011,08/06/2010,02/0 02/2010,09/20/2007,09/04/2003 Seasonal Influenza, Quadriva lent, No Preserve, 6 [...] Telephone Encounter - Jeevan Mclean MD - 05/26/2023 11:05 AM EDTSigned Prescriptions: Disp Refills Acetaminophen-Codeine 300-30 MG Oral [id number] Ta*0 Sig: Take 1 Tablet by mouth every 6 hours as needed for Pain, Moderate. Authorizing Provider: JEEVAN MCLEAN * Telephone Encounter - April Medellin [facility] - 05/26/2023 10:57 AM EDTPending Prescriptions: Disp Refills Acetaminophen-Codeine 300-30 MG Oral [id number] Ta*0 Sig: Take 1 Tablet by mouth every 6 hours as needed for Pain, Moderate. * Telephone Encounter - April Medellin RPh - 05/26/2023 10:55 AM EDT Images from the original note were not included. Per PDMP: Patient using 2 medications for pain?? During last OV, Patient stated that tramadol was not workingand provider started a trial of Tylenol #3. Thank you, April Medellin [facility] Clinical Pharmacist Centralized Clinical Pharmacy Services ([facility]) (formerly Telepharmacy) 05/26/23 10:57 AM [phone] * Telephone Encounter - April Medellin RPh - 05/26/2023 10:51 AM EDT I have reviewed the patients controlled substance dispensing history in the Prescription Drug Monitoring Program in compliance with the [facility] regulations before prescribing a controlled substance. PDMP checked on 05/26/2023. Pending Prescriptions: Disp Refills Acetaminophen-Codeine 300-30 MG Oral Tabl*120 Ta*0 Sig: Take 1 Tablet by mouth every 6 hours as needed for Pain, Moderate. Last Visit: 04/20/2023 (in office), 12/16/2022 (telemedicine) Next Visit: Visit date not found Date medication was last filled: 04/21/2023 Date medication is due for refill: 05/20/2023 Pharmacy: [id number] Is this request for a controlled substance? Yes and Urine Drug Screen Not completed Toxicology results: No results found. However, due to the size of the patient record, not all encounters were searched.Please check Results Review for a complete set of results. Please approve if appropriate. Thank you, April Medellin RPh Clinical Pharmacist [facility] Clinical Pharmacy [facility] ([facility]) (formerly Telepharmacy) 05/26/23 10:52 AM [phone] documented in this encounter Plan of Treatment Upcoming Encounters Date Type Specialty Care Team Description 05/27/2023 Laboratory Laboratory Processing [facility] Mobile Home Draw [address] [place], [place] [phone] [facility] [address] [place] [address] 2023 Imaging Radiology 06/28/2023 Telemedicine Urology Juan José Walters MD [address] [place] [address] 07/07/2023 Office Visit Cardiology Jerry Pacheco, DO [address] [place] [address] 07/21/2023 Telemedicine Psychiatry Hugo Alcantara MD [address] [place] [address] 08/04/2023 Office Visit Infectious Disease Julieta Reyes MD [address] [place] [address] Scheduled Procedures Name Priority Associated [...] 02/16/2022 LUNG CANCER SCREENING - USE SMARTSET 49320 Completed 03/16/2022, 08/24/2018, 01/03/2017 GARDASIL-HPV IMMUNIZATION SERIES Aged Out No longer [...] sciatica documented in this encounter Care Teams Trader Relationship Specialty Start Date End Date Jeevan Mclean MD [address] [place] [address] PCP - General Family Medicine 12/29/19 documented as of this encounter
--- OUTSIDE RECORDS SUMMARY | 2023-07-25 04:12 | External Medical Summary | Summary of Care ---
Author Name Unknown Organization [facility] Address [address] [place] [address] Phone [phone] Care Team Providers Care Spindle Carver Name Role Phone Roger Alexandra MD Primary Care Provider [phone] Reason for Visit * Reason Comments Scheduling Encounter Details Date Type Department Care Team Description 05/11/2023 Anticoagulation Pharmacy Call Center [address] [facility] [place] [address] [facility] [address] [place] [address] Anticoagulation management encounter* Allergies Active Allergy Reactions Severity Noted Date Comments Aspirin Unknown 12/12/2007 von Willebrand's disease Salicylates 03/01/2000 von Willebrand's disease documented as of this encounter (statuses as of 05/14/2023) Medications Medication Sig Dispensed Refills Start Date End Date Status Warfarin Sodium 5 MG Oral Tablet (Coumadin)Indication s:Paroxysmal atrial fibrillation (HCC) Take by mouth 1 Tablet in the evening. OR As directed by coumadin clinic. 90 Tablet 3 02/16/2022 Active oxygen IN GASIndications:Chron ic hypoxemic respiratory failure [...] group D, by GOLD 2017 classification ([facility]),Chronic hypoxemic respiratory failure ([facility]) Use with nebulized meds 1 Each 0 09/16/2022 Active Full Kit Nebulizer SetIndications:COPD, group D, by GOLD 2017 classification ([facility]),Chronic hypoxemic respiratory failure ([facility]) Use with nebulizer 1 Each 0 [...] wheezing. J44.9 90 mL 3 03/18/2023 Active LORazepam 0.5 MG Oral Tablet (Ativan) Take 1 Tablet by mouth every 8 hours as needed for Anxiety. Do not start before April 22, 2023. 90 Tablet 1 04/22/2023 Active Omeprazole 20 MG Oral Capsule Delayed Release (PriLOSEC) take 1 capsule by mouth IN THE MORNING and 1 capsule BEFORE BEDTIME 60 Capsule 5 04/05/2023 Active busPIRone HCl 10 MG Oral Tablet (Buspar) Take 2 Tablets by mouth in the morning and 2 Tablets before bedtime. 120 Tablet 2 04/07/2023 Active Baclofen 10 MG Oral Tablet (Lioresal)Indication s:Chronic bilateral low back pain without sciatica Take 1 Tablet by mouth 3 times a day as needed for Muscle spasms. 90 Tablet 0 04/13/2023 Active Nitrofurantoin Monohyd Macro 100 MG Oral Capsule (Macrobid) Take 1 Capsule by mouth in the morning and 1 Capsule before bedtime. With food.. 20 Capsule 0 04/16/2023 Active Ferrous Sulfate 325 (65 Fe) MG Oral Tablet (Feosol) 1 Tablet. 0 01/12/2023 Active Acetaminophen-Codein e 300-30 MG Oral TabletIndications:Ch ronic bilateral low back pain without sciatica Take 1 Tablet by mouth every 6 hours as needed for Pain, Moderate. 120 Tablet 0 04/20/2023 Active Nystatin 408085 UNIT/GM External Powder (Nyamyc) apply to affected area twice a day 60 g 1 05/10/2023 Active Hospital, Clinic, or Other Facility Administered Medication Ordered Dose Route Frequency Start Date End Date Status Albuterol Sulfate (Proventil) (2.5 MG/3ML) 0.083% inhalation solution 2.5 mgIndications:COPD, group D, by GOLD 2017 classification ([facility]) 2.5 mg NEBULIZER PRN 03/03/2023 03/02/2024 Acti ve Albuterol Sulfate (Proventil) (5 MG/ML) 0.5% *conc* inhalation solution 2.5 mgIndications:COPD, group D, by GOLD 2017 classification ([facility]) 2.5 mg NEBULIZER PRN 03/03/2023 03/02/2024 Acti ve documented as of this encounter (statuses as of 05/14/2023) Active Problems Problem Noted Date Decreased functional [...] as of this encounter (statuses as of 05/14/2023) Resolved Problems Problem Noted Date Resolved Date [...] 02/04/2006 12/21/2008 Atrial septal aneurysm 02/04/2006 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 Kim Mercado [facility] documented in this encounter Plan of Treatment Upcoming Encounters Date Type Specialty Care Team Description 05/24/2023 Telemedicine Psychiatry Hugo Alcantara MD [address] [place] [address] 05/27/2023 Laboratory Laboratory Processing [facility] Mobile Home Draw [address] [place] [address] 2023 [facility] [address] [place] [address] 2023 Imaging Radiology 06/28/2023 Telemedicine Urology Juan José Walters MD [address] [place] [id number] 07/07/2023 Office Visit Cardiology Jerry Pacheco, DO [address] [place] [address] 08/04/2023 Office Visit Infectious Disease Julieta Reyes MD [address] [place], [place] [id number] Scheduled Procedures Name Priority Associated Diagnoses Date/Ti [...] 04/23/2021 *ADVANCE DIRECTIVE NOT ON FILE 02/16/2022 Mammogram 09/04/2023 09/04/2022, 10/15, 04/27/2014, Additional history exists O2 ASSESSMENT COMPLETED IN PAST YEAR FOR COPD 04/20/2024 04/20/2023 Diabetes Screening 10/23/2025 10/23/2022, 0 01/15/2022, 01/08/2022, Additional history exists COLONOSCOPY-EVERY 5 YRS AGES 18-100 01/14/2028 01/13/2023, 11/12/2020, 05/22/2013, Additional history exists Lipid Panel 03/09/2028 03/09/2023, 08/15, 09/25/2015, Additional history exists Alpha-1 Antitrypsin Completed 02/16/2022 LUNG CANCER SCREENING - USE SMARTSET 08480 Completed 03/16/2022, 08/24/2018, 01/03/2017 Influenza Vaccine (FLU shot) Completed , 11/11/2021, 11/11/2021, Additional history exists GARDASIL-HPV IMMUNIZATION SERIES Aged [...] monitoring documented in this encounter Care Teams Spindle Carver Relationship Specialty Start Date End Date Roger Alexandra MD [address] [place] [address] PCP - General Family Medicine 12/29/19 documented as of this encounter
--- OUTSIDE RECORDS SUMMARY | 2023-07-25 04:12 | External Medical Summary ---
Author Name Unknown Address Unknown Organization K01:[facility] [place] [facility] [address] [facility] [address] [place] [address] Laboratory Report Ordering Provider Test Date Status SUMAN STANFORD 05/31/2023 09:55:00 Final Observation Date Value Abnormality Reference (Units ) Status PT 05/31/2023 09:55:00 30.1 Above high normal 11 .6-15.2 (seconds) Final INR 05/31/2023 09:55:00 2.8 Above high normal 0. 8-1.2 Final Performing Location [facility] [place] [facility] [address] [place] [address]
--- OUTSIDE RECORDS SUMMARY | 2023-07-25 04:12 | External Medical Summary | Summary of Care ---
Author Name Unknown Organization [facility] Address [address] [facility] [place] [address] Phone [phone] Care Team Providers Care Crew Scheduler Name Role Phone Roger Alexandra MD Primary Care Provider [phone] Reason for Visit * Reason Comments Dosage Adjustment Via Phone (anticoag Cl inic) Encounter Details Date Type Department Care Team Description 05/14/2023 Anticoagulation Pharmacy Call Center [address] [facility] [place] [address] [facility] [address] [place] [address] Anticoagulation management encounter* Allergies Active Allergy Reactions [...] D, by GOLD 2017 classification ([facility]),Chronic hypoxemic respiratory failure ([facility]) Use with nebulized meds 1 Each 0 09/16/2022 Active Full Kit Nebulizer SetIndications:COPD, group D, by GOLD 2017 classification ([facility]),Chronic hypoxemic respiratory failure ([facility]) Use with nebulizer 1 Each 0 [...] Moderate. 120 Tablet 0 04/20/2023 Active Nystatin 007669 UNIT/GM External Powder (Nyamyc) apply to affected [...] before bedtime. 14 Tablet 0 05/13/2023 Active Hospital, Clinic, or Other Facility Administered Medication Ordered Dose Route Frequency Start Date End Date Status Albuterol Sulfate (Proventil) (2.5 MG/3ML) 0.083% inhalation solution 2.5 mgIndications:COPD, group D, by GOLD 2017 classification ([facility]) 2.5 mg NEBULIZER PRN 03/03/2023 03/02/2024 Acti ve Albuterol Sulfate (Proventil) (5 MG/ML) 0.5% *conc* inhalation solution 2.5 mgIndications:COPD, group D, by GOLD 2017 classification ([facility]) 2.5 mg NEBULIZER PRN 03/03/2023 03/02/2024 [...] as of this encounter Progress Notes * RUFINA Vela - 05/14/2023 9:14 AM EDT Contacts Type Contact Phone/Fax 05/14/2023 09:12 AM EDT Phone (Outgoing) Kimberly Kendall (Self) [phone] (M) Patient Findings Negatives: Signs/symptoms of bleeding, Change in health, Change in activity, Upcoming invasive procedure, Missed doses, Extra doses, Change in medications, Change in diet/appetite, Bruising MYG sent Advised patient to contact Anticoagulation Clinic if any unusual bruising or bleeding, recent illness, changes in medication, or questions/concerns. PT/INR results, Coumadin dose instructions, and next PT/INR date communicated as noted by Pharmacist: Yes RUFINA Vela 05/14/2023, 9:14 AM * Kim Mercado [facility] - 05/14/2023 7:37 AM EDT Images from the original note were not included. Coumadin Clinic (region specific) Current Warfarin Dose As of 05/14/2023 Warfarin maintenance plan: 5 mg (5 mg x 1) every day INR Result As of 05/14/2023 INR goal: 2.0-3.0 INR used for dosin.3 (05/13/2023) Warfarin Plan As of 05/14/2023 Full warfarin instructions: 05/14: Hold; 05/15: Hold; Otherwise 2.5 mg every Mon; 5 mg all other days Next INR check: 05/27/2023 Repeat PT/INR in 2 week(s) Weekly dose: decreased Additional Dosing Information: Description GML Also sent MyG after trying to call Tech to contact patient with dose instructions as noted. Kim Mercado RPh 05/14/2023, 7:39 AM documented in this encounter Plan of Treatment Upcoming Encounters Date Type Specialty Care Team Description 05/24/2023 Telemedicine Psychiatry Hugo Alcantara MD [address] [place] [address] 05/27/2023 Laboratory Laboratory Processing [facility] Mobile Home Draw [address] [place] [address] 2023 [facility] [address] [place] [address] 2023 Imaging Radiology 06/28/2023 Telemedicine Urology Juan José Walters MD [address] [place], [place] [id number] 07/07/2023 Office Visit Cardiology Jerry Pacheco, DO [address] [place] [address] 08/04/2023 Office Visit Infectious Disease Julieta Reyes MD [address] [place] [address] Scheduled Procedures Name Priority Associated [...] 02/16/2022 LUNG CANCER SCREENING - USE SMARTSET 72543 Completed 03/16/2022, 08/24/2018, 01/03/2017 Influenza Vaccine (FLU [...] monitoring documented in this encounter Care Teams Crew Scheduler Relationship Specialty Start Date End Date Roger Alexandra MD [address] [place] [address] PCP - General Family Medicine 12/29/19 documented as of this encounter
--- OUTSIDE RECORDS SUMMARY | 2023-07-25 04:12 | External Medical Summary | Summary of Care ---
Author Name Unknown Organization [facility] Address [address] [place] [address] Phone [phone] Care Team Providers Care Drawing Tender Name Role Phone Jeevan Alexandra MD Primary Care Provider [phone] Reason for Visit * Reason Onset Date Comments Medication Refill 05/27/2023 Encounter Details Date Type Department Care Team Description 05/27/2023 Refill [facility] [address] [place] [address] Jeevan Alexandra MD [address] [place] [id number] Chronic bilateral low back pain without sciatica Allergies Active Allergy Reactions Severity Noted Date Comments Aspirin Unknown 12/12/2007 von Willebrand's disease Salicylates 03/01/2000 von Willebrand's disease documented as of this encounter (statuses as of 2023) Medications Medication Sig Dispensed Refills Start Date End Date Status oxygen IN GASIndications:Health Manager 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 respiratory failure (HCC),COPD, group D, [...] OPD, group D, by GOLD 2017 classification ([facility]),Chronic hypoxemic respiratory failure ([facility]) Use with nebulized meds 1 Each 0 09/16/2022 Active Full Kit Nebulizer SetIndications:COPD , group D, by GOLD 2017 classification ([facility]),Chronic hypoxemic respiratory failure ([facility]) Use with nebulizer 1 Each [...] (Feosol) 1 Tablet. 0 01/12/2023 Active Nystatin 455528 UNIT/GM External Powder (Nyamyc) apply to affected [...] Pain, Moderate. 120 Tablet 0 2023 Active Acetaminophen-Codei ne 300-30 MG Oral TabletIndications:C hronic bilateral low back pain without sciatica Take 1 Tablet by mouth every 6 hours as needed for Pain, Moderate. 120 Tablet 0 05/26/2023 3 Discontinu ed(Refill) Acetaminophen-Codei ne 300-30 MG [...] mgIndications:COPD, group D, by GOLD 2017 classification ([facility]) 2.5 mg NEBULIZER PRN 03/03/2023 03/02/2024 Acti ve Albuterol Sulfate (Proventil) (5 MG/ML) 0.5% *conc* inhalation solution 2.5 mgIndications:COPD, group D, by GOLD 2017 classification ([facility]) 2.5 mg NEBULIZER PRN 03/03/2023 03/02/2024 Acti ve documented as of this encounter (statuses as of 2023) Active Problems Problem Noted Date Decreased functional [...] as of this encounter (statuses as of 2023) Resolved Problems Problem Noted Date Resolved Date [...] as of this encounter (statuses as of 2023) Immunizations Name Administration Dates Next Due H1N1 [...] Miscellaneous Notes * Telephone Encounter - RUFINA Muñoz - 2023 1:38 PM EDT Patient has been notified of the message. Patient has no further questions. * Telephone Encounter - Jeevan Alexandra MD - 2023 1:11 PM EDTSigned Prescriptions: Disp Refills Acetaminophen-Codeine 300-30 MG Oral [id number] Ta*0 Sig: Take 1 Tablet by mouth every 6 hours as needed for Pain, Moderate.Authorizing Provider: JEEVAN ALEXANDRARefused Prescriptions: Disp Refills Acetaminophen-Codeine 300-30 MG Oral [id number] Ta*0 Sig: Take 1Tablet by mouth every 6 hours as needed for Pain, Moderate.Refused By: JEEVAN ALEXANDRAReason for Refusal: Duplicate Request * Addendum Note - MARCELLA Hester ASSIST - 2023 12:19 PM EDT Addended by: MARYCRUZ SCHAFFER on: 2023 12:19 PM Modules accepted: Orders * Telephone Encounter - MARCELLA Hester - 2023 12:15 PM EDT [facility] only has 20 tablets left and unsure when they will receive more. Called and asked [facility] if they had it in stock and they do. Please resend to [facility]. * Telephone Encounter - RUFINA Jay - 2023 12:09 PM EDT Patient calling in to check on the status of previous message. Patient Called within 48 hour timeframe. Reminded patient of 48 hour turn-around time. Pt is stating Karen rasmussen is suggesting for her to get the prescription from another pharmacy since they are out and dont know when they will have it again. Please call pt to verify what she should do * Telephone Encounter - Jeevan Alexandra MD - 2023 11:06 AM EDTSigned Prescriptions: Disp Refills Acetaminophen-Codeine 300-30 MG Oral [id number] Ta*0 Sig: Take 1 Tablet by mouth every 6 hours as needed for Pain, Moderate.Authorizing Provider: JEEVAN ALEXANDRARefused Prescriptions: Disp Refills Acetaminophen-Codeine 300-30 MG Oral Pbyryx446 Ta*0 Sig: Take 1 Tablet by mouth every 6 hours as needed for Pain, Moderate.Refused By: JEEVAN ALEXANDRAason for Refusal: Duplicate Request * Addendum Note - Delmis Cruz LPN - 2023 8:47 AM EDTAddended by: DELMIS CRUZ on: 2023 08:47 AM Modules accepted: Orders * Telephone Encounter - Delmis Cruz LPN - 2023 8:46 AM EDT Please review and note message below. Pt requesting different pharmacy. Pended below. * Telephone Encounter - Jeevan Alexandra MD - 05/27/2023 9:01 PM EDTRefused Prescriptions: Disp Refills Acetaminophen-Codeine 300-30 MG Oral [id number] Ta*0 Sig: Take 1 Tablet by mouth every 6 hours as needed for Pain, Moderate. Refused By: JEEVAN ALEXANDRA Reason for Refusal: Duplicate Request * Telephone Encounter - Delmis Cruz LPN - 05/27/2023 3:53 PM EDTPending Prescriptions: Disp Refills Acetaminophen-Codeine 300-30 MG Oral Pexofi642 Ta*0 Sig: Take 1 Tablet by mouth every 6 hours as needed for Pain, Moderate. * Telephone Encounter - Mary Campbell, pneumatic system conveyor operator - 05/27/2023 2:25 PM EDT Please resend Rx to [facility] [address] [place] [address]. Confirmed pharmacy did not receive original prescription. Pharmacy does not have Please resend Pending Prescriptions: Disp Refills Acetaminophen-Codeine 300-30 MG Oral Tabl*120 Ta*0 Sig: Take 1 Tablet by mouth every 6 hours as needed for Pain, Moderate. Last Visit: 04/20/2023 (in office), 12/16/2022 (telemedicine) Visit date not found If no future appointments scheduled, and last appointment is greater than a year ago, please schedule patient for a follow-up appointment Last date the medication was ordered: 05/26 Patient Phone Numbers [employer] [phone] Labs: Lab Results Component Value Date/Time CREAT [...] Encounters Date Type Specialty Care Team Description 05/31/2023 Laboratory Laboratory Processing [facility] Mobile Home Draw [address] [place] [address] 06/01[facility] [address] [facility] [address] 06/28/2023 Telemedicine Urology Juan José Walters MD [address] [place] [address] 07/07/2023 Office Visit Cardiology Jerry Pacheco, DO [address] [place] [address] 07/21/2023 Telemedicine Psychiatry Hugo Alcantara MD [address] [place] [address] 08/04/2023 Office Visit Infectious Disease Julieta Reyes MD [address] [place] [address] Scheduled Procedures Name Priority Associated [...] 02/16/2022 LUNG CANCER SCREENING - USE SMARTSET 97825 Completed 03/16/2022, 08/24/2018, 01/03/2017 GARDASIL-HPV IMMUNIZATION SERIES [...] sciatica documented in this encounter Care Teams Drawing Tender Relationship Specialty Start Date End Date Jeevan Alexandra MD [address] [place] [address] PCP - General Family Medicine 12/29/19 documented as of this encounter
--- OUTSIDE RECORDS SUMMARY | 2023-07-25 04:12 | External Medical Summary | Summary of Care ---
Author Name Unknown Organization [facility] Address [address] [place] [address] Phone [phone] Care Team Providers Care Patent Leather Sorter Name Role Phone Jeevan Mclean MD Primary Care Provider [phone] Reason for Visit * Reason Onset Date Comments Medication Refill 05/27/2023 Encounter Details Date Type Department Care Team Description 05/27/2023 Refill [facility] [address] [place] [address] Jeevan Mclean MD [address] [place] [id number] Chronic bilateral low back pain without sciatica [...] PD, group D, by GOLD 2017 classification ([facility]),Chronic hypoxemic respiratory failure ([facility]) Use with nebulized meds 1 Each 0 09/16/2022 Active Full Kit Nebulizer SetIndications:COPD, group D, by GOLD 2017 classification ([facility]),Chronic hypoxemic respiratory failure ([facility]) Use with nebulizer 1 Each [...] (Feosol) 1 Tablet. 0 01/12/2023 Active Nystatin 306007 UNIT/GM External Powder (Nyamyc) apply to affected [...] Muscle spasms. 90 Tablet 0 05/17/2023 Active Acetaminophen-Codein e 300-30 MG Oral TabletIndications:Ch [...] 24, 2023. 90 Tablet 1 06/24/2023 Active Hospital, Clinic, or Other Facility Administered Medication Ordered Dose Route Frequency Start Date End Date Status Albuterol Sulfate (Proventil) (2.5 MG/3ML) 0.083% inhalation solution 2.5 mgIndications:COPD, group D, by GOLD 2017 classification ([facility]) 2.5 mg NEBULIZER PRN 03/03/2023 03/02/2024 Acti ve Albuterol Sulfate (Proventil) (5 MG/ML) 0.5% *conc* inhalation solution 2.5 mgIndications:COPD, group D, by GOLD 2017 classification ([facility]) 2.5 mg NEBULIZER PRN 03/03/2023 [...] encounter Miscellaneous Notes * Addendum Note - Delmis Cruz LPN - 2023 8:47 AM EDTAddended by: DELMIS CRUZ on: 2023 08:47 AM Modules accepted: Orders * Telephone Encounter - Delmis Cruz LPN - 2023 8:46 AM EDT Please review and note message below. Pt requesting different pharmacy. Pended below. * Telephone Encounter - Jeevan Mclean MD - 05/27/2023 9:01 PM EDTRefused Prescriptions: Disp Refills Acetaminophen-Codeine 300-30 MG Oral [id number] Ta*0 Sig: Take 1 Tablet by mouth every 6 hours as needed for Pain, Moderate. Refused By: JEEVAN MCLEAN Reason for Refusal: Duplicate Request * Telephone Encounter - Delmis Cruz LPN - 05/27/2023 3:53 PM EDTPending Prescriptions: Disp Refills Acetaminophen-Codeine 300-30 MG Oral [id number] Ta*0 Sig: Take 1 Tablet by mouth every 6 hours as needed for Pain, Moderate. * Telephone Encounter - Mary Campbell, snapper on - 05/27/2023 2:25 PM EDT Please resend Rx to [facility] [address] [place] [address]. Confirmed pharmacy did not receive original prescription. [...] medication was ordered: 05/26 Patient Phone Numbers Labs: Lab Results Component [...] Encounters Date Type Specialty Care Team Description 2023 Imaging Radiology 05/31/2023 Laboratory Laboratory Processing [facility], [facility] Mobile Home Draw [address] [place], [place] [id number] 06/01/2023 [facility] [address] [place] [address] 06/28/2023 Telemedicine Urology Juan José Walters MD [address] [place] [address] 07/07/2023 Office Visit Cardiology Jerry Pacheco, DO [address] [place] [address] 07/21/2023 Telemedicine Psychiatry Hugo Alcantara MD [address] [place] [address] 08/04/2023 Office Visit Infectious Disease Julieta Reyes MD [address] [place] [address] Scheduled Procedures Name Priority Associated [...] 02/16/2022 LUNG CANCER SCREENING - USE SMARTSET 40095 Completed 03/16/2022, 08/24/2018, 01/03/2017 GARDASIL-HPV IMMUNIZATION SERIES [...] sciatica documented in this encounter Care Teams Patent Leather Sorter Relationship Specialty Start Date End Date Jeevan Mclean MD [address] [place] [address] PCP - General Family Medicine 12/29/19 documented as of this encounter
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
--- OUTSIDE RECORDS SUMMARY | 2023-07-25 04:12 | External Medical Summary | Summary of Care ---
Author Name Unknown Organization [facility] Address [address] [place] [address] Phone [phone] Care Team Providers Care Civil Design Specialist Name Role Phone Jeevan Mclean MD Primary Care Provider [phone] Reason for Visit * Reason Onset Date Comments Medication Refill 05/27/2023 Encounter Details Date Type Department Care Team Description 05/27/2023 Refill Family [facility] [address] [place] [address] Jeevan Mclean MD [address] [place] [id number] Chronic bilateral low back pain without sciatica [...] PD, group D, by GOLD 2017 classification ([facility]),Chronic hypoxemic respiratory failure ([facility]) Use with nebulized meds 1 Each 0 09/16/2022 Active Full Kit Nebulizer SetIndications:COPD, group D, by GOLD 2017 classification ([facility]),Chronic hypoxemic respiratory failure ([facility]) Use with nebulizer 1 Each [...] (Feosol) 1 Tablet. 0 01/12/2023 Active Nystatin 943240 UNIT/GM External Powder (Nyamyc) apply to affected [...] mgIndications:COPD, group D, by GOLD 2017 classification ([facility]) 2.5 mg NEBULIZER PRN 03/03/2023 03/02/2024 Acti ve Albuterol Sulfate (Proventil) (5 MG/ML) 0.5% *conc* inhalation solution 2.5 mgIndications:COPD, group D, by GOLD 2017 classification ([facility]) 2.5 mg NEBULIZER PRN 03/03/2023 [...] Prescriptions: Disp Refills Acetaminophen-Codeine 300-30 MG Oral [id number] Ta*0 Sig: Take 1 Tablet by mouth every 6 hours as needed for Pain, Moderate. Refused By: JEEVAN MCLEAN Reason for Refusal: Duplicate Request * Telephone Encounter - Corrie Sam LPN - 05/27/2023 3:53 PM EDTPending Prescriptions: Disp Refills Acetaminophen-Codeine 300-30 MG Oral Nnqgyi225 Ta*0 Sig: Take 1 Tablet by mouth every 6 hours as needed for Pain, Moderate. * Telephone Encounter - Mary Campbell, petal cutter - 05/27/2023 2:25 PM EDT Please resend Rx to [facility] [address] [place] [address] [place] [address]. Confirmed pharmacy did not receive original prescription. [...] 05/31/2023 Laboratory Laboratory Processing [facility] [address] [facility] [address] 06/01/2023 [facility] [address] [facility] [place] [address] 06/28/2023 Telemedicine Urology Juan José Walters MD [address] [place] [address] 07/07/2023 Office Visit Cardiology Jerry Pacheco, DO [address] [place] [address] 07/21/2023 Telemedicine Psychiatry Hugo Alcantara MD [address] [place] [address] 08/04/2023 Office Visit Infectious Disease Julieta Reyes MD [address] [place] [address] Scheduled Procedures Name Priority Associated [...] 02/16/2022 LUNG CANCER SCREENING - USE SMARTSET 08159 Completed 03/16/2022, 08/24/2018, 01/03/2017 GARDASIL-HPV IMMUNIZATION SERIES [...] sciatica documented in this encounter Care Teams Civil Design Specialist Relationship Specialty Start Date End Date Jeevan Mclean MD [address] [place] [address] PCP - General Family Medicine 12/29/19 documented as of this encounter
--- OUTSIDE RECORDS SUMMARY | 2023-07-25 04:12 | External Medical Summary | Summary of Care ---
Author Name Unknown Organization [facility] Address [address] [facility] [address] Phone [phone] Care Team Providers Care Car Pincher Name Role Phone Jeevan Mclean MD Primary Care Provider [phone] Reason for Visit * Reason Comments eRx-Medication Refill Encounter Details Date Type Department Care Team Description 05/14/2023 Refill Pharmacy Call Center [address] 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 60 Tablet 11 3 Active Ipratropium-Albuter ol 0.5-2.5 (3) MG/3ML Inhalation Solution (Duoneb) Inhale 3 ML by mouth every 6 hours as needed for wheezing. J44.9 90 mL 3 3 Active LORazepam 0.5 MG Oral Tablet (Ativan) Take 1 Tablet by mouth every 8 hours as needed for Anxiety. Do not start before April 22, 2023. 90 Tablet 1 3 Active Omeprazole 20 MG Oral Capsule Delayed Release (PriLOSEC) take 1 capsule by mouth IN THE MORNING and 1 capsule BEFORE BEDTIME 60 Capsule 5 3 Active busPIRone HCl 10 MG Oral Tablet (Buspar) Take 2 Tablets by mouth in the morning and 2 Tablets before bedtime. 120 Tablet 2 3 Active Baclofen 10 MG Oral Tablet (Lioresal)Indicatio ns:Chronic bilateral low back pain without sciatica Take 1 Tablet by mouth 3 times a day as needed for Muscle spasms. 90 Tablet 0 3 Active Nitrofurantoin Monohyd Macro 100 MG Oral Capsule (Macrobid) Take 1 Capsule by mouth in the morning and 1 Capsule before bedtime. With food.. 20 Capsule 0 3 Active Ferrous Sulfate 325 (65 Fe) MG Oral Tablet (Feosol) 1 Tablet. 0 3 Active Acetaminophen-Codei ne 300-30 MG Oral TabletIndications:C hronic bilateral low back pain without sciatica Take 1 Tablet by mouth every 6 hours as needed for Pain, Moderate. 120 Tablet 0 3 Active Nystatin 716204 UNIT/GM External Powder (Nyamyc) apply to affected area twice a day 60 g 1 3 Active Furosemide 40 MG Oral Tablet (Lasix)Indications: Chronic diastolic CHF (congestive heart failure) (HCC) Take 1 Tablet by mouth daily as needed for Other (leg swelling). 90 Tablet 3 3 Active Cefuroxime Axetil 500 MG Oral Tablet (Ceftin) Take 1 Tablet by mouth in the morning and 1 Tablet before bedtime. 14 Tablet 0 3 Active Warfarin Sodium 5 MG Oral Tablet (Coumadin)Indicatio ns:Paroxysmal atrial fibrillation (HCC) Take 0.5-1 Tablets by mouth every evening. OR DIRECTED BY COUMADIN CLINIC 90 Tablet 3 3 Active Warfarin Sodium 5 MG Oral Tablet (Coumadin)Indicatio ns:Paroxysmal atrial fibrillation (HCC) Take by mouth 1 Tablet in the evening. OR As directed by coumadin clinic. 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 OR DIRECTED BY COUMADIN CLINICAuthorizing Provider: JEEVAN MCLEAN User: SUSANNA TILLMAN documented in this encounter Plan of Treatment Upcoming Encounters Date Type Specialty Care Team Description 05/24/2023 Telemedicine Psychiatry Hugo Alcantara MD [address] [place] [address] 05/27/2023 Laboratory Laboratory Processing [facility], [facility] Mobile Home Draw [address] [place] [address] 2023 [facility] [place] [address] [address] [place] [address] 2023 Imaging Radiology 06/28/2023 Telemedicine Urology Juan José Walters MD [address] [place] [address] 07/07/2023 Office Visit Cardiology Jerry Pacheco, [address] [place] [address] 08/04/2023 Office Visit Infectious Disease Julieta Reyes MD [address] [facility] [place] [address] Scheduled Procedures Name Priority Associated Diagnoses [...] 02/16/2022 LUNG CANCER SCREENING - USE SMARTSET [id number] Completed 03/16/2022, 08/24/2018, 01/03/2017 GARDASIL-HPV IMMUNIZATION SERIES [...] as of this encounter Visit Diagnoses Diagnosis Paroxysmal atrial fibrillation (HCC) Atrial fibrillation documented in this encounter Care Teams Car Pincher Relationship Specialty Start Date End Date Jeevan Mclean MD [address] [place] [address] PCP - General Family Medicine 12/29/19 documented as of this encounter
--- OUTSIDE RECORDS SUMMARY | 2023-07-25 04:12 | External Medical Summary | Summary of Care ---
Author Name Unknown Organization [facility] Address [address] [place] [address] Phone [phone] Care Team Providers Care Crude Unit Operator Name Role Phone Roger Alexandra MD Primary Care Provider [phone] Reason for Visit * Reason Onset Date Comments Medication Refill 05/14/2023 Encounter Details Date Type Department Care Team Description 05/14/2023 Refill Urology, [facility] 132 [facility] [place] [address] Juan José Walters MD 27 [facility] [address] [place] [address] Allergies Active Allergy Reactions Severity Noted [...] PD, group D, by GOLD 2017 classification ([facility]),Chronic hypoxemic respiratory failure ([facility]) Use with nebulized meds 1 Each 0 09/16/2022 Active Full Kit Nebulizer SetIndications:COPD, group D, by GOLD 2017 classification ([facility]),Chronic hypoxemic respiratory failure ([facility]) Use with nebulizer 1 Each 0 [...] Moderate. 120 Tablet 0 04/20/2023 Active Nystatin 183305 UNIT/GM External Powder (Nyamyc) apply to affected [...] mgIndications:COPD, group D, by GOLD 2017 classification ([facility]) 2.5 mg NEBULIZER PRN 03/03/2023 03/02/2024 Acti ve Albuterol Sulfate (Proventil) (5 MG/ML) 0.5% *conc* inhalation solution 2.5 mgIndications:COPD, group D, by GOLD 2017 classification (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 0 [...] encounter Miscellaneous Notes * Telephone Encounter - Bria Gant LPN - 05/14/2023 2:02 PM EDTRefused Prescriptions: Disp Refills Solifenacin Succinate 10 MG Oral Tablet (V*30 Tab*6 Sig: Take 1Tablet by mouth in the morning.Refused By: BRIA GANT for Refusal: Too soon documented in this encounter Plan of Treatment Upcoming Encounters Date Type Specialty Care Team Description 05/24/2023 Telemedicine Psychiatry Hugo Alcantara MD [address] [place] [address] 05/27/2023 Laboratory Laboratory Processing [facility] [place], [facility] Mobile Home Draw [address] [place] [address] 2023 [facility] [address] [place] [address] 2023 Imaging Radiology 06/28/2023 Telemedicine Urology Juan José Walters MD 27 [facility] [address] [place] [address] 07/07/2023 Office Visit Cardiology Jerry Pacheco, DO [address] [place] [address] 08/04/2023 Office Visit Infectious Disease Julieta Reyes MD [address] [facility] [place] [address] Scheduled Procedures Name Priority Associated Diagnoses Date/Ti [...] 02/16/2022 LUNG CANCER SCREENING - USE SMARTSET [id number] Completed 03/16/2022, 08/24/2018, 01/03/2017 Influenza Vaccine (FLU [...] filedocumented as of this encounter Care Teams Crude Unit Operator Relationship Specialty Start Date End Date Roger Alexandra MD [address] [place] [address] PCP - General Family Medicine 12/29/19 documented as of this encounter
--- OUTSIDE RECORDS SUMMARY | 2023-07-25 04:12 | External Medical Summary | Summary of Care ---
Author Name Unknown Organization [facility] Address [address] [place] [address] Phone [phone] Care Team Providers Care Fiber Technician Name Role Phone Roger Alexandra MD Primary Care Provider [phone] Reason for Visit * Reason Onset Date Comments Medication Refill 05/14/2023 Encounter Details Date Type Department Care Team Description 05/14/2023 Refill [facility] [place] [address] [place] [address] Roger Alexandra MD [address] [place] [id number] Chronic bilateral low back pain without sciatica Allergies Active Allergy Reactions Severity Noted Date Comments Aspirin Unknown 12/12/2007 von Willebrand's disease Salicylates 03/01/2000 von Willebrand's disease documented as of this encounter (statuses as of 05/17/2023) Medications Medication Sig Dispensed Refills Start Date End Date Status oxygen IN GASIndications: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 120 Tablet 0 04/20/2023 Active Nystatin 909998 UNIT/GM External Powder (Nyamyc) apply to affected [...] Muscle spasms. 90 Tablet 0 05/17/2023 Active Baclofen 10 MG Oral Tablet (Lioresal)Indicatio ns:Chronic bilateral low back pain without sciatica Take 1 Tablet by mouth 3 times a day as needed for Muscle spasms. 90 Tablet 0 04/13/2023 3 Discontinu ed(Refill) Hospital, Clinic, or Other Facility Administered Medication Ordered Dose Route Frequency Start Date End Date Status Albuterol Sulfate (Proventil) (2.5 MG/3ML) 0.083% inhalation solution 2.5 mgIndications:COPD, group D, by GOLD 2017 classification ([facility]) 2.5 mg NEBULIZER PRN 03/03/2023 03/02/2024 Acti ve Albuterol Sulfate (Proventil) (5 MG/ML) 0.5% *conc* inhalation solution 2.5 mgIndications:COPD, group D, by GOLD 2017 classification ([facility]) 2.5 mg NEBULIZER PRN 03/03/2023 03/02/2024 Acti ve documented as of this encounter (statuses as of 05/17/2023) Active Problems Problem Noted Date Decreased functional [...] as of this encounter (statuses as of 05/17/2023) Resolved Problems Problem Noted Date Resolved Date [...] 02/04/2006 12/21/2008 Atrial septal aneurysm 02/04/2006 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 Authorizing Provider: WILLA SHORT * Telephone Encounter - Ammy Taylor LPN - 05/17/2023 7:19 AM EDTPending Prescriptions: Disp Refills Baclofen 10 MG Oral Tablet (Lioresal) 90 Tab*0 Sig: Take 1 Tablet by mouth 3 times a day as needed for Muscle spasms. * Telephone Encounter - Octavia Zamora - 05/15/2023 11:19 AM EDTPending Prescriptions: Disp Refills Baclofen 10 MG Oral Tablet (Lioresal) 90 Tab*0 Sig: Take 1 Tablet by mouth 3 times a day as needed for Muscle spasms. documented in this encounter Plan of Treatment Upcoming Encounters Date Type Specialty Care Team Description 05/24/2023 Telemedicine Psychiatry Hugo Alcantara MD [address] [place] [address] 05/27/2023 Laboratory Laboratory Processing [facility] [place], [facility] Mobile Home Draw [address] [place] [address] 2023 [facility] [address] [place] [address] 2023 Imaging Radiology 06/28/2023 Telemedicine Urology Juan José Walters MD [address] [place] [address] [place] [address] 07/07/2023 Office Visit Cardiology Jerry Pacheco DO [address] [place] [address] 08/04/2023 Office Visit Infectious Disease Julieta Reyes MD [address] [place] [address] Scheduled Procedures Name Priority Associated [...] 02/16/2022 LUNG CANCER SCREENING - USE SMARTSET [id number] Completed 03/16/2022, 08/24/2018, 01/03/2017 GARDASIL-HPV IMMUNIZATION SERIES [...] sciatica documented in this encounter Care Teams Fiber Technician Relationship Specialty Start Date End Date Roger Alexandra MD [address] [address] PCP - General Family Medicine 12/29/19 documented as of this encounter
--- OUTSIDE RECORDS SUMMARY | 2023-07-25 04:12 | External Medical Summary | Summary of Care ---
Author Name Unknown Organization [facility] Address [address] [place] [address] Phone [phone] Care Team Providers Care Metallurgical Technician Name Role Phone Jeevan Mclean MD Primary Care Provider [phone] Reason for Referral * Medication Prior Authorization - Pending Review Specialty Diagnoses / Procedures Referred By Anna hendrix Referred To Contact Diagnoses Chronic bilateral low back pain without sciatica Jeevan Mclean MD [address] [place] [address] Referral ID Status Reason Start Date Expiration Date V isits Requested Visits Authorized [id number] Pending Review 999 999 Reason for Visit * Reason Onset Date Comments Medication Refill 05/27/2023 Encounter Details Date Type Department Care Team Description 05/27/2023 Refill Family Practice [facility] [address] [place] [address] Jeevan Mclean MD [address] [place] [address] Chronic bilateral low back pain without sciatica Allergies Active Allergy Reactions Severity Noted Date Comments Aspirin Unknown 12/12/2007 von Willebrand's disease Salicylates 03/01/2000 von Willebrand's disease documented as of this encounter (statuses as of 2023) Medications Medication Sig Dispensed Refills Start Date End Date Status oxygen IN GASIndications: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 Patient Called within 48 hour timeframe. Reminded patient of 48 hour turn-around time. Pt is stating [facility] is suggesting for her to get the prescription from another pharmacy since they are out and dont know when they will have it again. Please call pt to verify what she should do * Telephone Encounter - Jeevan Mclean MD - 2023 11:06 AM EDTSigned Prescriptions: Disp Refills Acetaminophen-Codeine 300-30 MG Oral [id number] Ta*0 Sig: Take 1 Tablet by mouth every 6 hours as needed for Pain, Moderate.Authorizing Provider: JEEVAN MCLEANRefused Prescriptions: Disp Refills Acetaminophen-Codeine 300-30 MG Oral [id number] Ta*0 Sig: Take 1Tablet by mouth every 6 hours as needed for Pain, Moderate.Refused By: JEEVAN MCLEANReason for Refusal: Duplicate Request * Addendum Note [...] Prescriptions: Disp Refills Acetaminophen-Codeine 300-30 MG Oral [id number] Ta*0 Sig: Take 1 Tablet by mouth every 6 hours as needed for Pain, Moderate. Refused By: JEEVAN MCLEAN Reason for Refusal: Duplicate Request * Telephone Encounter - Delmis Cruz LPN - 05/27/2023 3:53 PM EDTPending Prescriptions: Disp Refills Acetaminophen-Codeine 300-30 MG Oral [id number] Ta*0 Sig: Take 1 Tablet by mouth every 6 hours as needed for Pain, Moderate. * Telephone Encounter - Mary Campbell, communications equipment supervisor - 05/27/2023 2:25 PM EDT Please resend Rx to [facility] [address] [place] [address]. Confirmed pharmacy did not receive original prescription. [...] Care Team Description 05/31/2023 Laboratory [facility] Mobile Home Draw [address] [place] [address] 06/01/2023 [facility] [address] [place] [address] 06/28/2023 Telemedicine Urology Juan José Walters MD [address] [place], [place] [address] 07/07/2023 Office Visit Cardiology Jerry Pacheco, DO [address] [place] [address] 07/21/2023 Telemedicine Psychiatry Hugo Alcantara MD [address] [place] [address] 08/04/2023 Office Visit Infectious Disease Julieta Reyes MD [address] [place] [address] Scheduled Procedures Name Priority Associated [...] 02/16/2022 LUNG CANCER SCREENING - USE SMARTSET [id number] Completed 03/16/2022, 08/24/2018, 01/03/2017 GARDASIL-HPV IMMUNIZATION SERIES [...] sciatica documented in this encounter Care Teams Metallurgical Technician Relationship Specialty Start Date End Date Jeevan Mclean MD [address] [place] [address] PCP - General Family Medicine 12/29/19 documented as of this encounter
--- OUTSIDE RECORDS SUMMARY | 2023-07-25 04:12 | External Medical Summary | Summary of Care ---
Author Name Unknown Organization [facility] Address [address] [place] [address] Phone [phone] Care Team Providers Care Lab Analyst Name Role Phone Jeevan Alexandra MD Primary Care Provider [phone] Reason for Referral * Medication Prior Authorization - Pending Review Specialty Diagnoses / Procedures Referred By Anna hendrix Referred To Contact Diagnoses Chronic bilateral low back pain without sciatica Jeevan Alexandra MD [address] [place] [address] Referral ID Status Reason Start Date Expiration Date V isits Requested Visits Authorized [id number] Pending Review 999 999 Reason for Visit * Reason Onset Date Comments Medication Refill 05/27/2023 Encounter Details Date Type Department Care Team Description 05/27/2023 Refill Family Practice [facility] [address] [place] [address] Jeevan Alexandra MD [address] [place] [address] Chronic bilateral low back pain without sciatica Allergies Active Allergy Reactions Severity Noted Date Comments Aspirin Unknown 12/12/2007 von Willebrand's disease Salicylates 03/01/2000 von Willebrand's disease documented as of this encounter (statuses as of 2023) Medications Medication Sig Dispensed Refills Start Date End Date Status oxygen IN GASIndications:Technical Coordinator 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 respiratory failure (HCC),COPD, group D, by GOLD 2017 classification ([facility]) Use 2 LPM at rest, [...] D, by GOLD 2017 classification ([facility]),Chronic hypoxemic respiratory failure ([facility]) Use with nebulized meds 1 Each 0 09/16/2022 Active Full Kit Nebulizer SetIndications:COPD , group D, by GOLD 2017 classification ([facility]),Chronic hypoxemic respiratory failure ([facility]) Use with nebulizer 1 Each [...] (Feosol) 1 Tablet. 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 Called and asked [facility] if they had it in stock and they do. Please resend to [facility]. * Telephone Encounter - RUFINA Jay [...] Prescriptions: Disp Refills Acetaminophen-Codeine 300-30 MG Oral [id number] Ta*0 Sig: Take 1 Tablet by mouth every 6 hours as needed for Pain, Moderate.Authorizing Provider: JEEVAN ALEXANDRARefused Prescriptions: Disp Refills Acetaminophen-Codeine 300-30 MG Oral [id number] Ta*0 Sig: Take 1Tablet by mouth every [...] Prescriptions: Disp Refills Acetaminophen-Codeine 300-30 MG Oral [id number] Ta*0 Sig: Take 1 Tablet by mouth every 6 hours as needed for Pain, Moderate. Refused By: JEEVAN ALEXANDRA Reason for Refusal: Duplicate Request * Telephone Encounter - Delmis Cruz LPN - 05/27/2023 3:53 PM EDTPending Prescriptions: Disp Refills Acetaminophen-Codeine 300-30 MG Oral [id number] Ta*0 Sig: Take 1 Tablet by mouth every 6 hours as needed for Pain, Moderate. * Telephone Encounter - Mary Campbell, financial sales associate - 05/27/2023 2:25 PM EDT Please resend Rx to [facility] [address] [place] [address]. Confirmed pharmacy did not receive original prescription. [...] Care Team Description 05/31/2023 Laboratory Laboratory Processing [facility] [place] [place], [facility] Draw [address] [facility] [address] 06/01/2023 [facility] [place] [address] [facility] [place] [address] 06/28/2023 Telemedicine Urology Juan José Walters MD [address] [place] [address] 07/07/2023 Office Visit Cardiology Jerry Pacheco, DO [address] [place] [address] 07/21/2023 Telemedicine Psychiatry Hugo Alcantara MD [address] [place] [address] 08/04/2023 Office Visit Infectious Disease Julieta Reyes MD [address] [place] [address] Scheduled Procedures Name Priority Associated Diagnoses Date/Ti [...] 02/16/2022 LUNG CANCER SCREENING - USE SMARTSET [id number] Completed 03/16/2022, 08/24/2018, 01/03/2017 GARDASIL-HPV IMMUNIZATION SERIES [...] sciatica documented in this encounter Care Teams Lab Analyst Relationship Specialty Start Date End Date Jeevan Alexandra MD [address] [place] [address] PCP - General Family Medicine 12/29/19 documented as of this encounter
--- OUTSIDE RECORDS SUMMARY | 2023-07-25 04:13 | External Medical Summary | Summary of Care ---
Author Name Unknown Organization [facility] Address [address] [place] [address] Phone [phone] Care Team Providers Care Maintenance Welder Name Role Phone Roger Alexandra MD Primary Care Provider [phone] Reason for Visit * Reason Onset Date Comments case management 04/20/2023 Encounter Details Date Type Department Care Team Description 04/20/2023 Cell Changer Telephone Family [facility] [address] [place] [address] Yara Morris, senior management consultant Allergies Active Allergy Reactions Severity Noted Date Comments Aspirin Unknown 12/12/2007 von Willebrand's disease Salicylates 03/01/2000 von Willebrand's disease documented as of this encounter (statuses as of 05/06/2023) Medications Medication Sig Dispensed Refills Start Date [...] PD, group D, by GOLD 2017 classification ([facility]),Chronic hypoxemic respiratory failure ([facility]) Use with nebulized meds 1 Each 0 09/16/2022 Active Full Kit Nebulizer SetIndications:COPD, group D, by GOLD 2017 classification ([facility]),Chronic hypoxemic respiratory failure ([facility]) Use with nebulizer 1 Each 0 [...] before bedtime. 120 Tablet 2 04/07/2023 Active Furosemide 20 MG Oral Tablet (Lasix)Indications:C hronic diastolic CHF (congestive heart failure) ([facility]) take 1 tablet by mouth once daily if needed for LOWER LEG SWELLING 30 Tablet 1 04/13/2023 Active Baclofen 10 MG Oral Tablet (Lioresal)Indication s:Chronic bilateral low back pain without sciatica Take 1 Tablet by mouth 3 times a day as needed for Muscle spasms. 90 Tablet 0 04/13/2023 Active Nystatin 844518 UNIT/GM External Powder (Nyamyc) apply to affected area twice a day 60 g 1 04/13/2023 Active Nitrofurantoin Monohyd Macro 100 MG [...] Pain, Moderate. 120 Tablet 0 04/20/2023 Active Hospital, Clinic, or Other Facility Administered Medication Ordered Dose Route Frequency Start Date End Date Status Albuterol Sulfate (Proventil) (2.5 MG/3ML) 0.083% inhalation solution 2.5 mgIndications:COPD, group D, by GOLD 2017 classification ([facility]) 2.5 mg NEBULIZER PRN 03/03/2023 03/02/2024 Acti ve Albuterol Sulfate (Proventil) (5 MG/ML) 0.5% *conc* inhalation solution 2.5 mgIndications:COPD, group D, by GOLD 2017 classification ([facility]) 2.5 mg NEBULIZER PRN 03/03/2023 03/02/2024 Acti ve documented as of this encounter (statuses as of 05/06/2023) Active Problems Problem Noted Date Decreased functional [...] as of this encounter (statuses as of 05/06/2023) Resolved Problems Problem Noted Date Resolved Date [...] 12/21/2008 Atrial 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 O2 is 88-89% on 4 L. She reports feels breathing is at baseline. Ankles with minimal edema, unable to tolerate LINDA stockings. Unable to balance self on [facility] home scale. [facility] is still visiting once a week. Had an antibiotic called into thepharmacy by urology, was upset that she was not aware of this, had been uncomfortable with urinary burning over the weekend. Has chaffing to [place] area as well. O: Clinic visit A: Alert,oriented P: Given tubi automotive upholsterer stockings to try on lower extremities, she will try to utilize these. Will remove [facility] scale from home as she is too unsteady to use this. She will go back to using home scale whichwas consistent, seems accurate with [facility] scale. Patient called to clinic after appointment to report that her medication may need a prior auth. Called [facility] and was told auth is required for Tylenol#3. Medicare Part D Bin: [id number] PCN: [id number] GRP: [id number] ID# [id number] # documented in this encounter Plan of Treatment Upcoming Encounters Date Type Specialty Care Team Description 05/11/2023 [facility] [address] [place] [address] 05/24/2023 Telemedicine Psychiatry Hugo Alcantara MD [address] [place] [address] 2023 Imaging Radiology 06/28/2023 Telemedicine Urology Juan José Walters MD 27 [facility] [address] [place] [address] 07/07/2023 Office Visit Cardiology Jerry Pacheco, DO [address] [place] [address] Scheduled Procedures Name Priority Associated Diagnoses Date/Ti [...] 02/16/2022 LUNG CANCER SCREENING - USE SMARTSET [id number] Completed 03/16/2022, 08/24/2018, 01/03/2017 Influenza Vaccine (FLU [...] filedocumented as of this encounter Care Teams Maintenance Welder Relationship Specialty Start Date End Date Roger Alexandra MD [address] [place] [address] PCP - General Family Medicine 12/29/19 documented as of this encounter
--- OUTSIDE RECORDS SUMMARY | 2023-07-25 04:13 | External Medical Summary | Summary of Care ---
Author Name Unknown Organization [facility] Address [address] [place] [address] Phone [phone] Care Team Providers Care Conveyor Belt Repairer Name Role Phone Roger Alexandra MD Primary Care Provider [phone] Reason for Referral * Evaluate & Treat - Unlimited Visits (Within 10 days (routine)) - Authorized Specialty Diagnoses / Procedures Referred By Contlaika t Referred To Contact Infectious Diseases / Infectious Disease Diagnoses Recurrent UTI Juan José Walters MD [address] [facility] [address] [place] [address] Referral ID Status Reason Start Date Expiration Date Visits Requested Visits Authorized [id number] Authorized Specialty Services Required 05/13/2023 999 999 Question Answer Referral Priority Within 10 days (routine) What condition is the patient being seen for? All Other Conditions Comments Multidrug resistant UTI Reason for Visit * Reason Onset Date Comments Test Results 05/06/2023 Encounter Details Date Type Department Care Team Description 05/06/2023 Foreign Agent Telephone Family Practice [facility] [address] [place] [address] Yara Morris RN Test Results Allergies Active Allergy Reactions Severity Noted Date Comments Aspirin Unknown 12/12/2007 von Willebrand's disease Salicylates 03/01/2000 von Willebrand's disease documented as of this encounter (statuses as of 05/13/2023) Medications Medication Sig Dispensed Refills Start Date End Date Status Warfarin Sodium 5 MG Oral Tablet (Coumadin)Indicati ons:Paroxysmal atrial fibrillation (HCC) Take by mouth 1 Tablet in the evening. OR As directed by coumadin clinic. 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 0 3 Active Acetaminophen-Code ine 300-30 MG Oral TabletIndications: Chronic bilateral low back pain without sciatica Take 1 Tablet by mouth every 6 hours as needed for Pain, Moderate. 120 Tablet 0 3 Active Cefuroxime Axetil 500 MG Oral Tablet (Ceftin) Take 1 Tablet by mouth in the morning and 1 Tablet before bedtime. 14 Tablet 0 3 Active Furosemide 20 MG Oral Tablet (Lasix)Indications :Chronic diastolic CHF (congestive heart failure) ([facility]) take 1 tablet by mouth once daily if needed for LOWER LEG SWELLING 30 Tablet 1 3 023 Discontinued Nystatin 488596 UNIT/GM External Powder (Nyamyc) apply to affected area twice a day 60 g 1 3 023 Discontinued(Re fill) Hospital, Clinic, or Other Facility Administered Medication Ordered Dose Route Frequency Start Date End Date Status Albuterol Sulfate (Proventil) (2.5 MG/3ML) 0.083% inhalation solution 2.5 mgIndications:COPD, group D, by GOLD 2017 classification ([facility]) 2.5 mg NEBULIZER PRN 03/03/2023 03/02/2024 Acti ve Albuterol Sulfate (Proventil) (5 MG/ML) 0.5% *conc* inhalation solution 2.5 mgIndications:COPD, group D, by GOLD 2017 classification ([facility]) 2.5 mg NEBULIZER PRN 03/03/2023 03/02/2024 Acti ve documented as of this encounter (statuses as of 05/13/2023) Active Problems Problem Noted Date Decreased functional [...] as of this encounter (statuses as of 05/13/2023) Resolved Problems Problem Noted Date Resolved Date [...] 02/04/2006 12/21/2008 Atrial septal aneurysm 02/04/2006 9 prison current use 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 0 06/01/2005 [...] as of this encounter (statuses as of 05/13/2023) Immunizations Name Administration Dates Next Due H1N1 [...] Telephone Encounter - Tracey Cabrera LPN - 05/13/2023 12:03 PM EDT Spoke with pt. Aware of antibiotics and ID referral. * Telephone Encounter - Juan José Walters MD - 05/13/2023 10:21 AM EDT Unfortunately, the patient's urine culture demonstrates multi-drug resistant organisms. Will provide a prescription for cephalosporins x1 week twice daily, but patient will need to see infectious disease if this trend continues, which I suspect it well considering her numerous antibiotic prescriptions. Consultation placed. Thanks, HM * Telephone Encounter - Tracey Cabrera LPN - 05/13/2023 8:[address] Walters Culture results received by fax this morning, given to Lucien molina. Also received order request from [facility] for macrobid, faxed to [place] for your review / signature. Thank you, Ammy * Telephone Encounter - RUFINA Pompa - 05/12/2023 5:04 PM EDT Please advise if the results are in yet. Call back: [phone] * Telephone Encounter - Juan José Walters MD - 05/10/2023 5:00 PM EDT We will await final culture results. Let us make sure it was done. Thanks, * Telephone Encounter - Tracey Cabrera LPN - 05/10/2023 2:[address] Walters Urinalysis results are scanned in, please advise. Thank you Ammy * Telephone Encounter - Tracey Cabrera LPN - 05/07/2023 12:21 PM EDT To be collected by [facility] Home Health. Spoke with ALFRED at office, aware of order. Order also faxed. * Telephone Encounter - Tracey Cabrera LPN - 05/07/2023 12:11 PM EDT Spoke with Kimberly, she's aware of urine culture order. Will monitor for results. * Telephone Encounter - Juan José Walters MD - 05/07/2023 11:32 AM EDT Yes, repeat UC&S, order placed. Thx, HM * Telephone Encounter - Tracey Cabrera LPN - 05/06/2023 3:[address] Walters Patient feels symptoms have no resolved, do you want repeat UC&S? Thank you Ammy * Telephone Encounter - Yara Morris RN - 05/06/2023 2:46 PM EDT S: Spoke with patient, she reports having continued pain and pressure in bladder area. She does notfeel uti is resolved. Had completed abx. In regards to edema, she reports some improvement, but herweight was still 323 lbs today. Her breathing is at baseline 88-92%. She reports pain in her legs that they tylenol with codeine is not helping much. O: phone follow up A: alert and oriented P: CM to follow up with PCP when back in office tomorrow, Will send message to urology regarding ongoing dysuria. documented in this encounter Plan of Treatment Upcoming Encounters Date Type Specialty Care Team Description 05/14/2023 [facility]ticoagulation [facility] [address] [facility] [address] 05/24/2023 Telemedicine Psychiatry Hugo Alcantara MD [address] [place] [address] 2023 Imaging Radiology 06/28/2023 Telemedicine Urology Juan José Walters MD [address] [facility] [address] [address] 07/07/2023 Office Visit Cardiology Jerry Pacheco, DO [address] [place] [address] Scheduled Orders Name Type Priority Associated Diagnoses Orde r Schedule CULTURE, URINE, QUANTITATIVE Lab Routine Recurrent UTI Ordered: 05/07/2023 Scheduled Procedures Name Priority Associated Diagnoses Date/Ti me COLONOSCOPY FLEXIBLE PROXIMA L DIAGNOSTIC Recall History of colonic polyps Scheduled Referrals Name Type Priority Associated Diagnoses Orde r Schedule INFECTIOUS DISEASE REFERRAL OP Referral Within 10 days (routine) Recurrent UTI Ordered: 05/13/2023 Health Maintenance Due Date Last Done Comments [...] 02/16/2022 LUNG CANCER SCREENING - USE SMARTSET [id number] Completed 03/16/2022, 08/24/2018, 01/03/2017 Influenza Vaccine (FLU [...] Primary Urinary tract infection, site not specified documented in this encounter Care Teams Conveyor Belt Repairer Relationship Specialty Start Date End Date Roger Alexandra MD [address] [place] [address] PCP - General Family Medicine 12/29/19 documented as of this encounter
--- OUTSIDE RECORDS SUMMARY | 2023-07-25 04:13 | External Medical Summary | Summary of Care ---
Author Name Unknown Organization [facility] Address [address] [place] [address] Phone [phone] Care Team Providers Care Supervisor Wet End Name Role Phone Roger Alexandra MD Primary Care Provider [phone] Reason for Visit * Reason Comments case management Encounter Details Date Type Department Care Team Description 04/21/2023 Call Circuit WorkerPrincipal Examiner Practice [facility] [address] [place] [id number] Yara Morris, RN Medical home patient encounter* Allergies Active Allergy Reactions Severity Noted Date Comments Aspirin Unknown 12/12/2007 von Willebrand's disease Salicylates 03/01/2000 von Willebrand's disease documented as of this encounter (statuses as of 04/21/2023) Medications Medication Sig Dispensed Refills Start Date [...] group D, by GOLD 2017 classification ([facility]),Chronic hypoxemic respiratory failure ([facility]) Use with nebulized meds 1 Each 0 09/16/2022 Active Full Kit Nebulizer SetIndications:COPD, group D, by GOLD 2017 classification ([facility]),Chronic hypoxemic respiratory failure ([facility]) Use with nebulizer 1 Each 0 [...] (Lasix)Indications:C hronic diastolic CHF (congestive heart failure) ([facility]) take 1 tablet by mouth once daily if needed for LOWER LEG SWELLING 30 Tablet 1 04/13/2023 Active Baclofen 10 MG Oral Tablet (Lioresal)Indication s:Chronic bilateral low back pain without sciatica Take 1 Tablet by mouth 3 times a day as needed for Muscle spasms. 90 Tablet 0 04/13/2023 Active Nystatin 770543 UNIT/GM External Powder (Nyamyc) apply to affected [...] group D, by GOLD 2017 classification ([facility]) 2.5 mg NEBULIZER PRN 03/03/2023 03/02/2024 Acti ve Albuterol Sulfate (Proventil) (5 MG/ML) 0.5% *conc* inhalation solution 2.5 mgIndications:COPD, group D, by GOLD 2017 classification ([facility]) 2.5 mg NEBULIZER PRN 03/03/2023 03/02/2024 Acti ve documented as of this encounter (statuses as of 04/21/2023) Active Problems Problem Noted Date Decreased functional [...] as of this encounter (statuses as of 04/21/2023) Resolved Problems Problem Noted Date Resolved Date [...] 12/21/2008 Atrial 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 Per granddaughter they still have the box the scale came in. documented in this encounter Plan of Treatment Upcoming Encounters Date Type Specialty Care Team Description 05/11/2023 [facility] [address] [facility] [address] 05/24/2023 Telemedicine Psychiatry Hugo Alcantara MD [address] [place] [address] 2023 Imaging Radiology 06/28/2023 Telemedicine Urology Juan José Walters MD [address] [place] [address] 07/07/2023 Office Visit Cardiology Jerry Pacheco, DO [address] [place] [address] Scheduled Procedures Name Priority Associated Diagnoses Date/Ti [...] 02/16/2022 LUNG CANCER SCREENING - USE SMARTSET [id number] Completed 03/16/2022, 08/24/2018, 01/03/2017 Influenza Vaccine (FLU [...] as of this encounter Visit Diagnoses Diagnosis Medical home patient encounter- Primary Other specified examination documented in this encounter Care Teams Supervisor Wet End Relationship Specialty Start Date End Date Roger Alexandra MD [address] [place] [address] PCP - General Family Medicine 12/29/19 documented as of this encounter
--- OUTSIDE RECORDS SUMMARY | 2023-07-25 04:13 | External Medical Summary | Summary of Care ---
Author Name Unknown Organization [facility] Address [address] [facility] [address] Phone [phone] Care Team Providers Care Retanner Name Role Phone Roger Alexandra MD Primary Care Provider [phone] Encounter Details Date Type Department Care Team Description 03/02/2023 Orders Only Pulmonary Medicine Vangie Meier [address] [place] [address] Juan Pulido MD [address] [place] [id number] COPD, group D, by GOLD 2017 classification ([facility])* Allergies Active Allergy Reactions Severity Noted Date Comments Aspirin Unknown 12/12/2007 von Willebrand's disease Salicylates 03/01/2000 von Willebrand's disease documented as of this encounter (statuses as of 05/04/2023) Medications Medication Sig Dispensed Refills Start Date [...] COPD, group D, by GOLD 2017 classification ([facility]),Chronic hypoxemic respiratory failure ([facility]) Use with nebulized meds 1 Each 0 2 Active Full Kit Nebulizer SetIndications:LIQUOR RECTIFIER D, group D, by GOLD 2017 classification ([facility]),Chronic hypoxemic respiratory failure ([facility]) Use with nebulizer 1 Each 0 2 [...] the morning. 30 Tablet 6 3 Active Ipratropium-Albute rol 0.5-2.5 (3) MG/3ML Inhalation Solution (Duoneb) Inhale 3 mL by mouth every 6 hours as needed for Wheezing. 90 mL 3 2 023 Discontinued(Re fill) Potassium Chloride ER 10 MEQ Oral Capsule Extended Release Take 1 Capsule (10 mEq) by mouth in the morning and 1 Capsule (10 mEq) before bedtime. 60 Capsule 5 2 023 Discontinued Omeprazole 20 MG Oral Capsule Delayed Release (PriLOSEC) take 1 capsule by mouth IN THE MORNING and 1 capsule BEFORE BEDTIME 60 Capsule 5 2 023 Discontinued Vitron-C 65-125 MG Oral Tablet (Iron-Vitamin C 65-125 mg per tab) Take 1 Tablet by mouth in the morning. 30 Tablet 11 3 023 Discontinued(Re fill) Fluticasone-Salmet jose martin 115-21 MCG/ACT Inhalation Aerosol (Advair Hfa) Inhale 2 Puffs by mouth in the morning and 2 Puffs before bedtime. 12 g 12 3 023 Discontinued(Re fill) Mirtazapine 30 MG Oral Tablet (Remeron) Take 1.5 Tablets by mouth at bedtime. 45 Tablet 2 3 023 Discontinued(Re fill) busPIRone HCl 10 MG Oral Tablet (Buspar) Take 2 Tablets by mouth in the morning and 2 Tablets before bedtime. 120 Tablet 2 3 023 Discontinued(Re fill) Baclofen 10 MG Oral Tablet (Lioresal)Indicati ons:Chronic bilateral low back pain without sciatica Take 1 Tablet by mouth 3 times a day as needed for Muscle spasms. 90 Tablet 0 3 023 Discontinued(Re fill) Nitrofurantoin Monohyd Macro 100 MG Oral Capsule (Macrobid) Take 1 Capsule by mouth in the morning and 1 Capsule before bedtime. With food.. 14 Capsule 0 3 023 Discontinued Furosemide 20 MG Oral Tablet (Lasix)Indications :Chronic diastolic CHF (congestive heart failure) (HCC) take 1 tablet by mouth once daily if needed for LOWER LEG SWELLING 30 Tablet 1 3 023 Discontinued traMADol HCl 50 MG Oral Tablet (Ultram)Indication s:Chronic bilateral low back pain without sciatica Take 2 Tablets by mouth every 8 hours as needed for Pain, Moderate. 180 Tablet 0 3 023 Discontinued(Re fill) Nystatin 771442 UNIT/GM External Powder (Nyamyc) apply to affected area twice a day 15 g 1 3 023 Discontinued(Re fill) LORazepam 0.5 MG Oral Tablet (Ativan) Take 1 Tablet by mouth every 8 hours as needed for Anxiety. 90 Tablet 1 3 023 Discontinued(Re fill) Hospital, Clinic, [...] as of this encounter (statuses as of 05/04/2023) Active Problems Problem Noted Date Decreased functional [...] as of this encounter (statuses as of 05/04/2023) Resolved Problems Problem Noted Date Resolved Date [...] as of this encounter (statuses as of 05/04/2023) Immunizations Name Administration Dates Next Due H1N1 [...] Progress Notes * Yara Morris RN - 05/04/2023 10:52 AM EDT CM Progress note S: patient called in with concerns of her current weight. Reports she was 323 lbs yesterday. Breathing is at her baseline. Oxygen sats are 87-93%. + bilateral lower leg edema. No drainage to legs. She is taking lasix 20mg once a day and would like to increase if appropriate. Of note, reports drinking 4 of the 16.5 oz bottles of pepsi a day. O: phone call follow up A: Alert and oriented P: Discussed with Dr. Alexandra, who recommends cutting back soda and okay to increase lasix to 40mg daily for 3 days. Called patient and made aware of recommendation. She verbalizes understanding. documented in this encounter Plan of Treatment Upcoming Encounters Date Type Specialty Care Team Description 05/11/2023 [facility] [address] [place] [address] 05/24/2023 Telemedicine Psychiatry Hugo Alcantara MD [address] [place] [address] 2023 Imaging Radiology 06/28/2023 Telemedicine Urology Juan José Walters MD 27 [facility] [address] [place] [address] 07/07/2023 Office Visit Cardiology Jerry Pacheco, DO [address] [place] [address] Scheduled Procedures Name Priority Associated Diagnoses Date/Ti [...] 02/16/2022 LUNG CANCER SCREENING - USE SMARTSET [id number] Completed 03/16/2022, 08/24/2018, 01/03/2017 Influenza Vaccine (FLU [...] Not on filedocumented as of this encounter Results * SPIROMETRY B/A BRONCHODILATOR (03/09/2023 11:08 AM EDT) FVC Actual Pre 1.06 L GE[facility] NGER [facility] FVC Actual Pre %Predict 36 % [facility] FVC Actual Post 1.22 L REGINO CAMELIA [facility] FVC Actual Post %Change 5 % [facility] FEV1 Actual Pre 0.84 L REGINO CAMELIA [facility] FEV1 Actual Pre %Predict 36 % [facility] FEV1 Actual Post 1.05 L [facility] FEV1 Actual Post %Change 9 % [facility] FEV1/FVC Actual Pre 79 % [facility] FEV1/FVC Actual Post 86 % [facility] FEF 25-75% Actual Pre 0.80 L/sec [facility] FEF 25-75% Actual Pre %Predict 38 % [facility] FEF 25-75% Actual Post 1.18 L/sec [facility] FEF 25-75% Actual Post %Change 47 % [facility] 03/09/2023 11:0 8 AM EDT Narrative [facility] - 03/09/2023 11:08 AM EDT Pulmonary Function Test shows: Restrictive Ventilatory Pattern. FEV1 is 0.84 L, 36 % of Predicted. Positive Bronchodilator response is noted only in smaller airways. Flow Volume loop is consistent with RESTRICTION Lung Volume Study was not done. Gas Transfer Study was not done. COMPARISON with HISTORICAL PFT Data: FEV1 DECREASED from 1.59 L to 0.84 L or from 71 % of predicted to 36 % of predicted which is considered a Clinically significant decrease over time. OVERALL IMPRESSION: Restrictive Ventilatory Pattern with worsening ventilatory parameters compared to 05/07/2022 data. Clinical correlation is recommended.This interpretation has been electronically signed: JUAN PULIDO DR. 03/10/2023 06:36:48 PM Juan Pulido MD MEDICINE DAYNA TRAN documented in this encounter Visit Diagnoses Diagnosis COPD, group D, by GOLD 2017 classification (HCC)- Primary COPD, group D, by GOLD 2017 classification (HCC)- Primary documented in this encounter Care Teams Retanner Relationship Specialty Start Date End Date Roger Alexandra MD [address] [place] [address] PCP - General Family Medicine 12/29/19 documented as of this encounter
--- OUTSIDE RECORDS SUMMARY | 2023-07-25 04:13 | External Medical Summary | Summary of Care ---
Author Name Unknown Organization [facility] Address [address] [place] [address] Phone [phone] Care Team Providers Care Vice President Of Talent Management Name Role Phone Roger Alexandra MD Primary Care Provider [phone] Reason for Visit * Reason Onset Date Comments FYI 05/03/2023 Encounter Details Date Type Department Care Team Description 05/03/2023 Lamination Assembler Telephone Family Practice [facility] [address] [place] [address] Yara Morris, RN FY Allergies Active Allergy Reactions Severity Noted Date [...] group D, by GOLD 2017 classification ([facility]),Chronic hypoxemic respiratory failure ([facility]) Use with nebulized meds 1 Each 0 09/16/2022 Active Full Kit Nebulizer SetIndications:COPD, group D, by GOLD 2017 classification ([facility]),Chronic hypoxemic respiratory failure ([facility]) Use with nebulizer 1 [...] hronic diastolic CHF (congestive heart failure) ([facility]) take 1 tablet by mouth once daily if needed for LOWER LEG SWELLING 30 Tablet 1 04/13/2023 Active Baclofen 10 MG Oral Tablet (Lioresal)Indication s:Chronic bilateral low back pain without sciatica Take 1 Tablet by mouth 3 times a day as needed for Muscle spasms. 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 * Telephone Encounter - Roger Alexandra MD - 05/03/2023 3:45 PM EDT Health swimming coach or instructor for diet would be great. No other recommendations I can think of at this time. * Telephone Encounter - Yara Morris RN - 05/03/2023 3:29 PM EDT CM Progress note S: received a call from EMELY Saez at [facility] home health. He reports that while visiting [place] rupal has had an increase in weight gain. Her leg swelling is increased. He notes that she is drinking "lots of pepsi and eating potato chips" despite being frequently educated on salt intake. She remains nonadherent to recommendations. He isn't sure what else he can do to reinforce these, so he wanted to report to PCP. SHe is at her usual state of health otherwise. Her vitals are stable pulse ox runs from 88-90% BP was 128/80, temp 97.1, pulse 86. She hadnt stepped on her home scale in quite some time, but today weighed 323 lbs. O: phone call follow up A: spoke with home health nurse. P: Continue to monitor/reinforce cutting down on sodium. Dr. Alexandra is there anything else you would recommend? (perhaps I could offer health swimming coach or instructor for diet?) Thank you documented in this encounter Plan of Treatment Upcoming Encounters Date Type Specialty Care Team Description 05/11/2023 [facility] [address] [facility] [place] [facility] 05/24/2023 Telemedicine Psychiatry Hugo Alcantara MD [address] [place] [address] 2023 Imaging Radiology 06/28/2023 Telemedicine Urology Juan José Walters MD [address] [place] [address] 07/07/2023 Office Visit Cardiology Jerry Pacheco, DO [address] [place] [address] Scheduled Procedures Name Priority Associated Diagnoses Date/Ti [...] 02/16/2022 LUNG CANCER SCREENING - USE SMARTSET [id number] Completed 03/16/2022, 08/24/2018, 01/03/2017 Influenza Vaccine (FLU [...] filedocumented as of this encounter Care Teams Vice President Of Talent Management Relationship Specialty Start Date End Date Roger Alexandra MD [address] [place] [address] PCP - General Family Medicine 12/29/19 documented as of this encounter
--- OUTSIDE RECORDS SUMMARY | 2023-07-25 04:13 | External Medical Summary | Summary of Care ---
Author Name Unknown Organization [facility] Address [address] [place] [address] Phone [phone] Care Team Providers Care Court Assistant Name Role Phone Roger Alexandra MD Primary Care Provider [phone] [phone] Reason for Visit * Reason Onset Date Comments case management 05/06/2023 Encounter Details Date Type Department Care Team Description 05/06/2023 Kraft Digester Operator Telephone Care Coordination [address], [place] [id number] Saray Jones LSW [address], [place] [id number] case management Allergies Active Allergy Reactions Severity [...] PD, group D, by GOLD 2017 classification ([facility]),Chronic hypoxemic respiratory failure ([facility]) Use with nebulized meds 1 Each 0 09/16/2022 Active Full Kit Nebulizer SetIndications:COPD, group D, by GOLD 2017 classification ([facility]),Chronic hypoxemic respiratory failure ([facility]) Use with nebulizer 1 Each [...] (Lasix)Indications:C hronic diastolic CHF (congestive heart failure) ([facility]) take 1 tablet by mouth once daily if needed for LOWER LEG SWELLING 30 Tablet 1 04/13/2023 Active Baclofen 10 MG Oral Tablet (Lioresal)Indication s:Chronic bilateral low back pain without sciatica Take 1 Tablet by mouth 3 times a day as needed for Muscle spasms. 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 S. CM spoke w/ pt over the phone. Pt confirmed her name and . Pt reports that she has a message out to EMELY Livingston as she continues to have leg pain and feels that her UTI is not improving. [facility] Y[facility] to notify her. Yara confirmed. [facility] discussed list of therapy providersemailed to pt. Pt stated that she will check her email after the call. CM confirmed pt's psychiatry appointment. Pt verbalized understanding and agreement w/ this plan of care O. Over the phone.. A. Pt spoke in a clear level tone of voice. Expressed concerns over leg pain and UTI- RNCM notified. P. BHCM to follow up w/ pt in 3-4 weeks. Saray Jones EARLY EDUCATION TEACHER, AUTO BODY STRAIGHTENER Behavioral Health Kraft Digester Operator (Pronouns: she, her, hers) Care Coordination Integration home builder documented in this encounter Plan of Treatment Upcoming Encounters Date Type Specialty Care Team Description 05/11/2023 [facility] [address] [place] [address] 05/24/2023 Telemedicine Psychiatry Hugo Alcantara MD [address] [place] [address] 2023 Imaging Radiology 06/28/2023 Telemedicine Urology Juan José Walters MD [address] [place] [address] 07/07/2023 Office Visit Cardiology Jerry Pacheco, DO [address] [place] [address] Scheduled Procedures Name Priority Associated Diagnoses Date/Ti [...] 02/16/2022 LUNG CANCER SCREENING - USE SMARTSET 38306 Completed 03/16/2022, 08/24/2018, 01/03/2017 Influenza Vaccine (FLU [...] filedocumented as of this encounter Care Teams Court Assistant Relationship Specialty Start Date End Date Roger Alexandra MD [address] [place] [address] PCP - General Family Medicine 12/29/19 documented as of this encounter
--- OUTSIDE RECORDS SUMMARY | 2023-07-25 04:13 | External Medical Summary | Summary of Care ---
Author Name Unknown Organization [facility] Address [address] [place] [address] Phone [phone] Care Team Providers Care Peritoneal Dialysis Registered Nurse Name Role Phone Roger Alexandra MD Primary Care Provider [phone] Reason for Visit * Reason Onset Date Comments Medication Refill 04/13/2023 Encounter Details Date Type Department Care Team Description 04/13/2023 Refill [facility] [address] [place] [address] Yara Morris, EMELY Allergies Active Allergy Reactions Severity Noted Date Comments Aspirin Unknown 12/12/2007 von Willebrand's disease Salicylates 03/01/2000 von Willebrand's disease documented as of this encounter (statuses as of 04/20/2023) Medications Medication Sig Dispensed Refills Start Date [...] PD, group D, by GOLD 2017 classification ([facility]),Chronic hypoxemic respiratory failure ([facility]) Use with nebulized meds 1 Each 0 09/16/2022 Active Full Kit Nebulizer SetIndications:COPD, group D, by GOLD 2017 classification ([facility]),Chronic hypoxemic respiratory failure ([facility]) Use with nebulizer 1 Each 0 [...] the morning. 30 Tablet 6 01/26/2023 Active Nitrofurantoin Monohyd Macro 100 MG Oral Capsule (Macrobid) Take 1 Capsule by mouth in the morning and 1 Capsule before bedtime. With food.. 14 Capsule 0 02/05/2023 Active Fluticasone-Salmeter ol 115-21 MCG/ACT Inhalation Aerosol (Advair Hfa) Inhale 2 Puffs by mouth in the morning and 2 Puffs before bedtime. 12 g 12 03/09/2023 Active Donepezil HCl 5 MG Oral Tablet [...] (Lasix)Indications:C hronic diastolic CHF (congestive heart failure) ([facility]) take 1 tablet by mouth once daily if needed for LOWER LEG SWELLING 30 Tablet 1 04/13/2023 Active traMADol HCl 50 MG Oral Tablet (Ultram)Indications: Chronic bilateral low back pain without sciatica Take 2 Tablets by mouth every 8 hours as needed for Pain, Moderate. 180 Tablet 0 04/13/2023 Active Baclofen 10 MG Oral Tablet (Lioresal)Indication s:Chronic bilateral low back pain without sciatica Take 1 Tablet by mouth 3 times a day as needed for Muscle spasms. 90 Tablet 0 04/13/2023 Active Nystatin 890173 UNIT/GM External Powder (Nyamyc) apply to affected area twice a day 60 g 1 04/13/2023 Active Hospital, Clinic, or Other Facility Administered Medication Ordered Dose Route Frequency Start Date End Date Status Albuterol Sulfate (Proventil) (2.5 MG/3ML) 0.083% inhalation solution 2.5 mgIndications:COPD, group D, by GOLD 2017 classification ([facility]) 2.5 mg NEBULIZER PRN 03/03/2023 03/02/2024 Acti ve Albuterol Sulfate (Proventil) (5 MG/ML) 0.5% *conc* inhalation solution 2.5 mgIndications:COPD, group D, by GOLD 2017 classification (HCC) 2.5 mg NEBULIZER PRN 03/03/2023 03/02/2024 Acti ve documented as of this encounter (statuses as of 04/20/2023) Active Problems Problem Noted Date Decreased functional mobility 08/28/2022 History of narcotic addiction 12/19/2021 Chronic hypoxemic respiratory failure COPD, group D, by GOLD 2017 classificati on 04/29/2021 Overview: Per COPD GOLD Classification PTSD (post-traumatic stress disorder) Chronic diastolic CHF (congestive heart failure) 10/23/2020 Overview: Noted on ECHO 10/2020 Drug-seeking behavior 10/17/2020 History of multiple strokes 10/17/2020 Chronic bilateral [...] as of this encounter (statuses as of 04/20/2023) Resolved Problems Problem Noted Date Resolved Date Body mass index (BMI) of 40.0 to 44.9 in adult 1 12/29/2019 03/05/2021 Overview: Per Obesity protocol Non compliance w medication regimen 10/14/2020 08/28/2022 [...] 02/04/2006 12/21/2008 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 06/01/2005 [...] as of this encounter (statuses as of 04/20/2023) Immunizations Name Administration Dates Next Due H1N1 [...] on file documented as of this encounter Plan of Treatment Upcoming Encounters Date Type Specialty Care Team Description 04/20/2023 Office Visit Family Medicine Roger Alexandra MD [address] [place] [address] 05/24/2023 Telemedicine Psychiatry Hugo Alcantara MD [address] [place] [address] 2023 Imaging Radiology 06/28/2023 Telemedicine Urology Juan José Walters MD [address] [place] [address] 07/07/2023 Office Visit Cardiology Jerry Pacheco DO [address] [place] [address] Scheduled Procedures Name Priority Associated Diagnoses Date/Ti [...] ASSESSMENT COMPLETED IN PAST YEAR FOR COPD 04/15/2024 04/15/2023 Diabetes Screening 10/23/2025 10/23/2022, 0 01/15/2022, 01/08/2022, Additional history exists COLONOSCOPY-EVERY 5 YRS AGES 18-100 01/14/2028 01/13/2023, 11/12/2020, 05/22/2013, Additional history exists Lipid Panel 03/09/2028 03/09/2023, 08/15, 09/25/2015, Additional history exists Alpha-1 Antitrypsin Completed 02/16/2022 LUNG CANCER SCREENING - USE SMARTSET 99553 Completed 03/16/2022, 08/24/2018, 01/03/2017 Influenza Vaccine (FLU [...] filedocumented as of this encounter Care Teams Peritoneal Dialysis Registered Nurse Relationship Specialty Start Date End Date Roger Alexandra MD [address] [place] [address] PCP - General Family Medicine 12/29/19 documented as of this encounter
--- OUTSIDE RECORDS SUMMARY | 2023-07-25 04:13 | External Medical Summary | Summary of Care ---
Author Name Unknown Organization [facility] Address [address] [place] [address] Phone [phone] Care Team Providers Care Transportation Aid Name Role Phone Roger Alexandra MD Primary Care Provider [phone] Reason for Visit * Reason Onset Date Comments case management 04/20/2023 Encounter Details Date Type Department Care Team Description 04/20/2023 Digital Director Telephone Family [facility] [address] [place] [address] Yara Morris, case management assistant Allergies Active Allergy Reactions Severity Noted Date [...] PD, group D, by GOLD 2017 classification ([facility]),Chronic hypoxemic respiratory failure ([facility]) Use with nebulized meds 1 Each 0 09/16/2022 Active Full Kit Nebulizer SetIndications:COPD, group D, by GOLD 2017 classification ([facility]),Chronic hypoxemic respiratory failure ([facility]) Use with nebulizer 1 Each 0 09/16/2022 [...] (Lasix)Indications:C hronic diastolic CHF (congestive heart failure) ([facility]) take 1 tablet by mouth once daily if needed for LOWER LEG SWELLING 30 Tablet 1 04/13/2023 Active Baclofen 10 MG Oral Tablet (Lioresal)Indication s:Chronic bilateral low back pain without sciatica Take 1 Tablet by mouth 3 times a day as needed for Muscle spasms. 90 Tablet 0 04/13/2023 Active Nystatin 262828 UNIT/GM External Powder (Nyamyc) apply to affected [...] mgIndications:COPD, group D, by GOLD 2017 classification ([facility]) 2.5 mg NEBULIZER PRN 03/03/2023 03/02/2024 Acti ve Albuterol Sulfate (Proventil) (5 MG/ML) 0.5% *conc* inhalation solution 2.5 mgIndications:COPD, group D, by GOLD 2017 classification ([facility]) 2.5 mg NEBULIZER PRN 03/03/2023 03/02/2024 Acti [...] to balance self on [facility] home scale. [facility] is still visiting once a week. Had an antibiotic called into thepharmacy by urology, was upset that she was not aware of this, had been uncomfortable with urinary burning over the weekend. [place] chaffing to [place] as well. O: Clinic visit A: Alert,oriented P: Given tubi hand shaker stockings to try on lower extremities, she [...] required for Tylenol#3. Medicare Part D Bin: [id number] PCN: [id number] GRP: [id number] ID# [id number] # documented in this encounter Plan of Treatment Upcoming Encounters Date Type Specialty Care Team Description 05/11[facility]2023 [facility] [address] [facility] [place] [address] 05/24/2023 Telemedicine Psychiatry Hguo Alcantara MD [address] [place] [address] 2023 Imaging Radiology 06/28/2023 Telemedicine Urology Juan José Walters MD [address] [facility] [address] [place] [address] 07/07/2023 Office Visit Cardiology Jerry Pacheco, DO [address] [place] [address] Scheduled Procedures Name Priority Associated Diagnoses Date/Ti [...] 02/16/2022 LUNG CANCER SCREENING - USE SMARTSET 44822 Completed 03/16/2022, 08/24/2018, 01/03/2017 Influenza Vaccine (FLU [...] filedocumented as of this encounter Care Teams Transportation Aid Relationship Specialty Start Date End Date Roger Alexandra MD [address] [place] [address] PCP - General Family Medicine 12/29/19 documented as of this encounter
--- OUTSIDE RECORDS SUMMARY | 2023-07-25 04:13 | External Medical Summary | Summary of Care ---
Author Name Unknown Organization [facility] Address [address] [place] [address] Phone [phone] Care Team Providers Care Sand Plant Attendant Name Role Phone Roger Alexandra MD Primary Care Provider [phone] [phone] Reason for Visit * Reason Onset Date Comments case management 04/20/2023 Encounter Details Date Type Department Care Team Description 04/20/2023 Gasoline Pump Installer Telephone Family [facility] [address] [place] [address] Yara Morris, knowledge management advisor Allergies Active Allergy Reactions Severity Noted Date [...] spasms. 90 Tablet 0 04/13/2023 Active Nystatin 520529 UNIT/GM External Powder (Nyamyc) apply to affected [...] 02/04/2006 12/21/2008 Atrial septal aneurysm 02/04/2006 9 emt intermediate current use 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 0 06/01/2005 [...] Encounter - Yara Morris RN - 05/06/2023 2:57 PM EDT See encounter from today. Called and spoke with patient. * Telephone Encounter - Yara Morris RN - 04/20/2023 2:52 PM EDT CM Progress note S: met with patient and granddaughter, Laura in the clinic. O2 is 88-89% on 4 L. She reports feels breathing is at baseline. Ankles with minimal edema, unable to tolerate LINDA stockings. Unable to balance self on [facility] home scale. [facility] is still visiting once a week. Had an antibiotic called into thepharmacy by urology, was upset that she was not aware of this, had been uncomfortable with urinary burning over the weekend. [place]affing to [place] as well. O: Clinic visit A: Alert,oriented P: Given tubi marine farmer stockings to try on lower extremities, she [...] required for Tylenol#3. Medicare Part D Bin: [id number] PCN: [id number] GRP: [id number] ID# [id number] # documented in this encounter Plan of Treatment Upcoming Encounters Date Type Specialty Care Team Description 05/11/2023 [facility] [address] [facility] [place] [address] 05/24/2023 Telemedicine Psychiatry Hugo Alcantara MD [address] [place] [facility] [place] [address] 2023 Imaging Radiology 06/28/2023 Telemedicine Urology Juan José Walters MD [address] [place] [address] 07/07/2023 Office Visit Cardiology Jerry Pacheco, DO [address] [place] [address] Scheduled Procedures Name Priority Associated Diagnoses Date/Ti [...] 02/16/2022 LUNG CANCER SCREENING - USE SMARTSET 72859 Completed 03/16/2022, 08/24/2018, 01/03/2017 Influenza Vaccine (FLU [...] filedocumented as of this encounter Care Teams Sand Plant Attendant Relationship Specialty Start Date End Date Roger Alexandra MD [address] [place] [address] PCP - General Family Medicine 12/29/19 documented as of this encounter
--- OUTSIDE RECORDS SUMMARY | 2023-07-25 04:13 | External Medical Summary | Summary of Care ---
Author Name Unknown Organization [facility] Address [address] [facility] [place] [address] Phone [phone] Care Team Providers Care Supervisor Polishing Name Role Phone Jeevan Mclean MD Primary Care Provider [phone] [phone] Reason for Visit * Reason Onset Date Comments Medication Refill 05/07/2023 Encounter Details Date Type Department Care Team Description 05/07/2023 Refill [facility] [address] [place] [address] Emmanuel Brooks DO [address] [place] [address] Allergies Active Allergy Reactions Severity Noted Date Comments Aspirin Unknown 12/12/2007 von Willebrand's disease Salicylates 03/01/2000 von Willebrand's disease documented as of this encounter (statuses as of 05/10/2023) Medications Medication Sig Dispensed Refills Start Date End Date Status Warfarin Sodium 5 MG Oral Tablet (Coumadin)Indicatio ns:Paroxysmal atrial fibrillation (HCC) Take by mouth 1 Tablet in the evening. OR As directed by coumadin clinic. 90 Tablet 3 02/16/2022 Active oxygen IN GASIndications:Circulation Crew Leader 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 respiratory failure (HCC),COPD, group D, [...] OPD, group D, by GOLD 2017 classification ([facility]),Chronic hypoxemic respiratory failure ([facility]) Use with nebulized meds 1 Each 0 09/16/2022 Active Full Kit Nebulizer SetIndications:COPD , group D, by GOLD 2017 classification ([facility]),Chronic hypoxemic respiratory failure ([facility]) Use with nebulizer 1 [...] 04/07/2023 Active Furosemide 20 MG Oral Tablet (Lasix)Indications: Chronic diastolic CHF (congestive heart failure) (HCC) take 1 tablet by mouth once daily if needed for LOWER LEG SWELLING 30 Tablet 1 04/13/2023 Active Baclofen 10 MG Oral Tablet (Lioresal)Indicatio [...] Moderate. 120 Tablet 0 04/20/2023 Active Nystatin 604604 UNIT/GM External Powder (Nyamyc) apply to affected area twice a day 60 g 1 05/10/2023 Active Nystatin 725833 UNIT/GM External Powder (Nyamyc) apply to affected area twice a day 60 g 1 04/13/2023 3 Discontinu ed(Refill) Hospital, Clinic, or Other Facility Administered Medication Ordered Dose Route Frequency Start Date End Date Status Albuterol Sulfate (Proventil) (2.5 MG/3ML) 0.083% inhalation solution 2.5 mgIndications:COPD, group D, by GOLD 2017 classification ([facility]) 2.5 mg NEBULIZER PRN 03/03/2023 03/02/2024 Acti ve Albuterol Sulfate (Proventil) (5 MG/ML) 0.5% *conc* inhalation solution 2.5 mgIndications:COPD, group D, by GOLD 2017 classification ([facility]) 2.5 mg NEBULIZER PRN 03/03/2023 03/02/2024 Acti ve documented as of this encounter (statuses as of 05/10/2023) Active Problems Problem Noted Date Decreased functional [...] as of this encounter (statuses as of 05/10/2023) Resolved Problems Problem Noted Date Resolved Date [...] 12/21/2008 Atrial septal aneurysm 02/04/2006 9 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 current use 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 0 06/01/2005 [...] as of this encounter (statuses as of 05/10/2023) Immunizations Name Administration Dates Next Due H1N1 [...] Telephone Encounter - Jeevan Mclean MD - 05/10/2023 7:49 AM EDTSigned Prescriptions: Disp Refills Nystatin 746766 UNIT/GM External Powder (N*60 g 1 Sig: apply to affected area twice a day Authorizing Provider: JEEVAN MCLEAN * Telephone Encounter - MARCELLA Hester ASSIST - 05/10/2023 7:47 AM EDT Pending Prescriptions: Disp Refills Nystatin 522040 UNIT/GM External Powder (N*60 g 1 Sig: apply to affected area twice a day * Telephone Encounter - Nieves Duran MED ASSIST - 05/10/2023 7:47 AM EDT Did you pend patient's preferred pharmacy and medication before forwarding?yes Pharmacy: [facility] [id number] Pending Prescriptions: Disp Refills Nystatin 131511 UNIT/GM External Powder (*60 g 1 Sig: apply to affected area twice a day Last Visit: 04/20/2023 (in office), 12/16/2022 (telemedicine) Next Visit: Visit date not found If no future appointments scheduled, and last appointment is greater than a year ago, please schedule patient for a follow-up appointment Last date the medication was ordered: 04/13/2023 Is this request for a controlled substance?No [...] 04:39 AM HGBA1C 5.7 04/19/2014 12:08 PM * Telephone Encounter - Octavia [facility] - 05/08/2023 1:51 AM EDTPending Prescriptions: Disp Refills Nystatin 934478 UNIT/GM External Powder (N*60 g 1 Sig: apply toaffected area twice a day documented in this encounter Plan of Treatment Upcoming Encounters Date Type Specialty Care Team Description 05/11[facility] [address] [facility] [place] [address] 05/24/2023 Telemedicine Psychiatry [facility]ara [facility] [address] [facility] [address] 2023 Imaging Radiology 06/28/2023 Telemedicine Urology Juan José Walters MD [address] [place] [address] 07/07/2023 Office Visit Cardiology Jerry Pacheco, DO [address] [place] [address] Scheduled Procedures Name Priority Associated Diagnoses Date/Ti [...] 02/16/2022 LUNG CANCER SCREENING - USE SMARTSET 83258 Completed 03/16/2022, 08/24/2018, 01/03/2017 Influenza Vaccine (FLU [...] filedocumented as of this encounter Care Teams Supervisor Polishing Relationship Specialty Start Date End Date Jeevan Mclean MD [address] [place] [address] PCP - General Family Medicine 12/29/19 documented as of this encounter
--- OUTSIDE RECORDS SUMMARY | 2023-07-25 04:13 | External Medical Summary ---
Author Name Unknown Address Unknown Organization [id number]:[facility] - [address] [place] [address] Laboratory Report Ordering Provider Test Date Status SUMAN STANFORD 05/13/2023 09:47:00 Final Observation Date Value Abnormality Reference (Units ) Status PT 05/13/2023 09:47:00 48.6 Above high normal 11.6-15.2 (seconds) Final INR 05/13/2023 09:47:00 5.3 Above upper panic limits 0.8-1.2 Final Performing Location [facility] - [address] [place] [address]
--- OUTSIDE RECORDS SUMMARY | 2023-07-25 04:13 | External Medical Summary | Summary of Care ---
Author Name Unknown Organization [facility] Address [address] [facility] [address] Phone [phone] Care Team Providers Care Hub Associate Name Role Phone Roger Alexandra MD Primary Care Provider [phone] Reason for Visit * Reason Comments Follow Up Pt here for 6 month follow up, c/o SOB Encounter Details Date Type Department Care Team Description 04/20/2023 [facility] [place] [address] Roger Alexandra MD [address] [place] [address] Chronic hypoxemic respiratory failure (HCC)*; Acquired hypothyroidism; Oxygen dependent; Obstructive sleep apnea; Paroxysmal atrial fibrillation (HCC); Idiopathic cardiomyopathy (HCC); Chronic diastolic CHF (congestive heart failure) (HCC); Super obese; PTSD (post-traumatic stress disorder); Depression with anxiety; History of multiple strokes; Decreased functional mobility; History of narcotic addiction (HCC); COPD, group D, by GOLD 2017 classification (HCC); Chronic bilateral low back pain without sciatica [...] 2017 classification ([facility]) Use 2 LPM at rest, 4 LPM [...] 2017 classification ([facility]),Chronic hypoxemic respiratory failure (HCC) Use with nebulized meds 1 Each 0 2 Active Full Kit Nebulizer SetIndications: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 120 Tablet 2 3 Active Furosemide 20 MG Oral Tablet (Lasix)Indications :Chronic diastolic CHF (congestive heart failure) (HCC) take 1 tablet by mouth once daily if needed for LOWER LEG SWELLING 30 Tablet 1 3 Active Baclofen 10 MG Oral Tablet (Lioresal)Indicati ons:Chronic bilateral low back pain without sciatica Take 1 Tablet by mouth 3 times a day as needed for Muscle spasms. 90 Tablet 0 3 Active Nystatin 163033 UNIT/GM External Powder (Nyamyc) apply to affected area twice a day 60 g 1 3 Active Nitrofurantoin Monohyd Macro 100 MG [...] Pain, Moderate. 120 Tablet 0 3 Active Nitrofurantoin Monohyd Macro 100 MG Oral Capsule (Macrobid) Take 1 Capsule by mouth in the morning and 1 Capsule before bedtime. With food.. 14 Capsule 0 3 023 Discontinued Fluticasone-Salmet jose martin 115-21 MCG/ACT Inhalation Aerosol (Advair Hfa) Inhale 2 Puffs by mouth in the morning and 2 Puffs before bedtime. 12 g 12 3 023 Discontinued traMADol HCl 50 MG Oral Tablet (Ultram)Indication s:Chronic bilateral low back pain without sciatica Take 2 Tablets by mouth every 8 hours as needed for Pain, Moderate. 180 Tablet 0 3 023 Discontinued(Nya keith) Hospital, Clinic, or Other Facility Administered Medication Ordered Dose Route Frequency Start Date End Date Status Albuterol Sulfate (Proventil) (2.5 MG/3ML) 0.083% inhalation solution 2.5 mgIndications:COPD, group D, by GOLD 2017 classification ([facility]) 2.5 mg NEBULIZER PRN 03/03/2023 03/02/2024 Acti ve Albuterol Sulfate (Proventil) (5 MG/ML) 0.5% *conc* inhalation solution 2.5 mgIndications:COPD, group D, by GOLD 2017 classification ([facility]) 2.5 mg NEBULIZER PRN 03/03/2023 03/02/2024 Acti [...] 07/05/2007 Overview: ICD-10 update of inactive term Irritable bowel syndrome with diarrhea 0 04/13/2001 [...] inactive term Carotid stenosis, non-symptomatic 03/16/2005 03/14/2007 Medical home patient encounter 07/31/2004 0 04/20/2023 CVA 07/31/2004 02/28/2009 Overview: Modified per CVA [...] Sign Reading Time Taken Comments Blood Pressure 122/70 04/20/2023 1:17 PM EDT Pulse 105 04/20/2023 1:17 PM EDT Temperature 37.7 C (99.8 F) 04/20/2023 1:17 PM ED T Respiratory Rate 22 04/20/2023 1:17 PM EDT Oxygen Saturation 89% 04/20/2023 1:17 PM EDT 4 liters Inhaled Oxygen Concentration - - Weight - - Height - - Body Mass Index - - documented in this encounter Progress Notes * Roger Alexandra MD - 04/20/2023 4:09 PM EDT SUBJECTIVE: Kimberly Kendall is a 62 year old female. Chief Complaint Patient presents with Follow Up Pt here for 6 month follow up, c/o SOB HPI: Kimberly is an immobile morbidly obese female with chronic hypoxic respiratory failure here for herregular visit. She is accompanied by her daughter per usual routine. She remains at her baseline. I reviewed her specialist notes/recommendations. The tramadol doesn't seem to help with her pain anymore. I am okay with trying some Tylenol #3. She is compliant with her medication. Inactivity, sedentary lifestyle unfortunately continues. Is followed by case management. She follows with our pulmonology department. Patient Active Problem List Diagnosis Code Irritable bowel syndrome with diarrhea K58.0 Depression with anxiety F41.8 Obstructive sleep apnea G47.33 Von Willebrand disease ([facility]) D68.00 Idiopathic cardiomyopathy ([facility]) I42.9 Acquired hypothyroidism E03.9 Super obese E66.9 Chronic bilateral low back pain without sciatica M54.50, G89.29 Paroxysmal atrial fibrillation ([facility]) I48.0 History of multiple strokes Z86.73 Chronic diastolic CHF (congestive heart failure) ([facility]) I50.32 PTSD (post-traumatic stress disorder) F43.10 COPD, group D, by GOLD 2017 classification ([facility]) J44.9 Chronic hypoxemic respiratory failure ([facility]) J96.11 History of narcotic addiction ([facility]) F11.21 Decreased functional mobility R26.89 Oxygen dependent Z99.81 Current Outpatient Medications Medication Sig Dispense Refill Warfarin Sodium 5 MG Oral Tablet (Coumadin) Take by mouth 1 Tablet in the evening. OR As directed by coumadin clinic. 90 Tablet 3 oxygen IN GAS Use 2 LPM at rest, 4 LPM with exertion and with sleep. (Patient taking differently: Use 4 LPM at rest, 5 LPM with exertion and 4 LPM with sleep.) 1 Each 0 Disposable Brief X-Large Attends X-Large Super Absorb Underwear 32 Each 2 ProAir HFA 108 (90 Base) MCG/ACT Inhalation [...] or Shortness of Breath. 540 mL 12 Donepezil HCl 5 MG Oral Tablet (Aricept) [...] needed for wheezing. J44.9 90 mL 3 [START ON 04/22/2023] LORazepam 0.5 MG Oral Tablet (Ativan) Take [...] 2 Tablets before bedtime. 120 Tablet 2 Furosemide 20 MG Oral Tablet (Lasix) take 1 tablet by mouth once daily if needed for LOWER LEG SWELLING 30 Tablet 1 Baclofen 10 MG Oral Tablet (Lioresal) Take 1 Tablet by mouth 3 times a day as needed for Musclespasms. 90 Tablet 0 Nystatin 814625 UNIT/GM External Powder (Nyamyc) apply to affected area twice a day 60 g 1 Ferrous Sulfate 325 (65 Fe) MG Oral Tablet (Feosol) 1 Tablet. Acetaminophen-Codeine 300-30 MG Oral Tablet Take 1 Tablet by mouth every 6 hours as needed for Pain, Moderate. 120 Tablet 0 Nebulizer Device Use with nebulized meds 1 Each 0 Full Kit Nebulizer Set Use with nebulizer 1 Each 0 Isosorbide Mononitrate ER 30 MG Oral Tablet Extended Release 24 Hour (Imdur) take 1 tablet by mouth daily 30 Tablet 5 Solifenacin Succinate 10 MG Oral Tablet (VESIcare) Take 1 Tablet by mouth in the morning. 30 Tablet 6 Nitrofurantoin Monohyd Macro 100 MG Oral Capsule (Macrobid) Take 1 Capsule by mouth in the morning and 1 Capsule before bedtime. With food.. 20 Capsule 0 Current Facility-Administered Medications Medication Dose Route Frequency Provider Last Rate Last Admin Albuterol Sulfate (Proventil) (2.5 MG/3ML) 0.083% inhalation solution 2.5 mg 2.5 mg Nebulizer PRN Juan Quintero MD 2.5 mg at 03/09/23 1107 Albuterol Sulfate (Proventil) (5 MG/ML) 0.5% *conc* inhalation solution 2.5 mg 2.5 mg NebulizerPRN Juan Quintero MD Allergy: Review of patient's allergies indicates: Allergen Reactions Aspirin Unknown von Willebrand's disease Salicylates von Willebrand's disease OBJECTIVE: BP 122/70 (BP Site: Left Arm, BP Position: Sitting, BP Cuff Size: Large) | Pulse 105 | Temp 37.7 C (99.8 F) (Tympanic) | Resp 22 | SpO2 89% Comment: 4 liters Gen: morbidly obese female sitting in wheelchair wearing oxygen Lungs: coarse breath sounds Heart: rrr, no mrg Skin: no open sores ASSESSMENT AND PLAN: (J96.11) Chronic hypoxemic respiratory failure (HCC) (primary encounter diagnosis) Plan: continue mgmt per pulm (E03.9) Acquired hypothyroidism Plan: euthyroid (Z99.81) Oxygen dependent Plan: continue mgmt per pulm (G47.33) Obstructive sleep apnea Plan: stable (I48.0) Paroxysmal atrial fibrillation (HCC) Plan: stable (I42.9) Idiopathic cardiomyopathy (HCC) Plan: stable (I50.32) Chronic diastolic CHF (congestive heart failure) (HCC) Plan: stable (E66.9) Super obese Plan: inactive --- likely won't lose weight at this juncture (F43.10) PTSD (post-traumatic stress disorder) Plan: continue psych mgmt (F41.8) Depression with anxiety Plan: see above (Z86.73) History of multiple strokes Plan: continue asa (R26.89) Decreased functional mobility Plan: chronic (F11.21) History of narcotic addiction (HCC) Plan: noted (J44.9) COPD, group D, by GOLD 2017 classification (HCC) Plan: stable (M54.50, G89.29) Chronic bilateral low back pain without sciatica Plan: Acetaminophen-Codeine 300-30 MG Oral Tablet Follow up in 6 month(s). No other complaints were offered at this time. Roger Alexandra MD documented in this encounter Plan of Treatment Upcoming Encounters Date Type Specialty Care Team Description 05/11/2023 [facility] [address] [place] [address] 05/24/2023 Telemedicine Psychiatry Hugo Alcantara MD [address] [place] [address] 2023 Imaging Radiology 06/28/2023 Telemedicine Urology Juan José Walters MD [address] [place] [address] 07/07/2023 Office Visit Cardiology Jerry Pacheco, DO [address] [place] [address] Scheduled Procedures Name Priority Associated Diagnoses Date/Ti [...] 02/16/2022 LUNG CANCER SCREENING - USE SMARTSET [id number] Completed 03/16/2022, 08/24/2018, 01/03/2017 Influenza Vaccine (FLU [...] of this encounter Visit Diagnoses Diagnosis Chronic hypoxemic respiratory failure (HCC)- Primary Chronic respiratory failure Acquired hypothyroidism Unspecified hypothyroidism Oxygen dependent Dependence on supplemental oxygen Obstructive sleep apnea Obstructive sleep apnea (adult) (pediatric) Paroxysmal atrial fibrillation (HCC) Atrial fibrillation Idiopathic cardiomyopathy (HCC) Other primary cardiomyopathies Chronic diastolic CHF (congestive heart failure) (HCC) Chronic diastolic heart failure Super obese Morbid obesity PTSD (post-traumatic stress disorder) Posttraumatic stress disorder Depression with anxiety Dysthymic disorder History of multiple strokes Decreased functional mobility Other symptoms involving nervous and musculoskeletal systems History of narcotic addiction (HCC) Opioid type dependence, in remission COPD, group D, by GOLD 2017 classification (HCC) Chronic bilateral low back pain without sciatica documented in this encounter Care Teams Hub Associate Relationship Specialty Start Date End Date Roger Alexandra MD [address] [place] [address] PCP - General Family Medicine 12/29/19 documented as of this encounter"
--- OUTSIDE RECORDS SUMMARY | 2023-07-25 04:13 | External Medical Summary | Summary of Care ---
Author Name Unknown Organization [facility] Address [address] [place] [address] Phone [phone] Care Team Providers Care Speeder Machine Operator Name Role Phone Roger Alexandra MD Primary Care Provider [phone] Reason for Visit * Reason Onset Date Comments Test Results 05/11/2023 Encounter Details Date Type Department Care Team Description 05/11/2023 Telephone Family Practice [facility] [address] [place] [address] Roger Alexandra MD [address] [employer] [place] [id number] Test Results Allergies Active Allergy Reactions Severity Noted Date Comments Aspirin Unknown 12/12/2007 von Willebrand's disease Salicylates 03/01/2000 von Willebrand's disease documented as of this encounter (statuses as of 05/11/2023) Medications Medication Sig Dispensed Refills Start Date [...] (Lasix)Indications:C hronic diastolic CHF (congestive heart failure) ([facility]) take 1 tablet by mouth [...] Moderate. 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 0 06/01/2005 [...] as of this encounter (statuses as of 05/11/2023) Immunizations Name Administration Dates Next Due H1N1 [...] Telephone Encounter - Tracey Cabrera LPN - 05/11/2023 12:35 PM EDT See other telephone encounter * Telephone Encounter - RUFINA Mckinney - 05/11/2023 10:58 AM EDT Who is Requesting Test Results: Patient Primary Care Provider : Dr Alexandra Tests Results Requested : Lab work Date of Test : 05/07/23 Location of Test: [facility] Ordering Provider: Dr Walters Callback Number: [phone] Patient has been made aware that the turnaround time for test results are typically as follows: Laboratory results = within 2 days Urine Cultures = within 2-3 days depending on growth within the culture Pathology results (biopsy results/PAP) = 1-2 weeks Radiology results = within 1 week Cologuard results = within 2 weeks from the shipment date COVID testing = results are on average 7 days documented in this encounter Plan of Treatment Upcoming Encounters Date Type Specialty Care Team Description 05/13/2023 Laboratory Laboratory Processing [facility] [address] [place] [address] 05/14/2023 [facility] [address] [place] [address] 05/24/2023 Telemedicine Psychiatry Hugo Alcantara MD [address] [place] [address] 2023 Imaging Radiology 06/28/2023 Telemedicine Urology Juan José Walters MD [address] [place] [address] 07/07/2023 Office Visit Cardiology Jerry Pacheco, DO [address] [place] [address] Scheduled Procedures Name Priority Associated Diagnoses Date/Ti [...] 02/16/2022 LUNG CANCER SCREENING - USE SMARTSET 68049 Completed 03/16/2022, 08/24/2018, 01/03/2017 Influenza Vaccine (FLU [...] filedocumented as of this encounter Care Teams Speeder Machine Operator Relationship Specialty Start Date End Date Roger Alexandra MD [address] [place] [address] PCP - General Family Medicine 12/29/19 documented as of this encounter
--- OUTSIDE RECORDS SUMMARY | 2023-07-25 04:13 | External Medical Summary | Summary of Care ---
Author Name Unknown Organization [facility] Address [address] [place] [address] Phone [phone] Care Team Providers Care Templer Head Name Role Phone Roger Alexandra MD Primary Care Provider [phone] Reason for Visit * Reason Onset Date Comments case management 04/20/2023 Encounter Details Date Type Department Care Team Description 04/20/2023 Program Rep Telephone Family [facility] [address] [place] [address] Yaar Morris, sports management internship Allergies Active Allergy Reactions Severity Noted Date [...] by GOLD 2017 classification ([facility]),Chronic hypoxemic respiratory failure ([facility]) Use with nebulized meds 1 Each 0 09/16/2022 Active Full Kit Nebulizer SetIndications:COPD, group D, by GOLD 2017 classification ([facility]),Chronic hypoxemic respiratory failure ([facility]) Use with nebulizer 1 Each 0 [...] (Lasix)Indications:C hronic diastolic CHF (congestive heart failure) ([facility]) take 1 tablet by mouth once daily if needed for LOWER LEG SWELLING 30 Tablet 1 04/13/2023 Active Baclofen 10 MG Oral Tablet (Lioresal)Indication s:Chronic bilateral low back pain without sciatica Take 1 Tablet by mouth 3 times a day as needed for Muscle spasms. 90 Tablet 0 04/13/2023 Active Nystatin 289503 UNIT/GM External Powder (Nyamyc) apply to affected [...] by GOLD 2017 classification ([facility]) 2.5 mg NEBULIZER PRN 03/03/2023 03/02/2024 Acti ve Albuterol Sulfate (Proventil) (5 MG/ML) 0.5% *conc* inhalation solution 2.5 mgIndications:COPD, group D, by GOLD 2017 classification ([facility]) 2.5 mg NEBULIZER PRN 03/03/2023 03/02/2024 [...] 02/04/2006 12/21/2008 Atrial septal aneurysm 02/04/2006 9 detention current use 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 0 06/01/2005 [...] to balance self on [facility] home scale. [facility] is still visiting once a week. Had an antibiotic called into thepharmacy by urology, was upset that she was not aware of this, had been uncomfortable with urinary burning over the weekend. Has chaffing to [place] area as well. O: Clinic visit A: Alert,oriented P: Given tubi speech language pathologist travel stockings to try on lower extremities, she [...] required for Tylenol#3. Medicare Part D Bin: [id number] PCN: [id number] GRP: [id number] ID# [id number] # documented in this encounter Plan of Treatment Upcoming Encounters Date Type Specialty Care Team Description 05/11/2023 [facility] [address] [facility] [address] 05/24/2023 Telemedicine Psychiatry Hugo Alcantara MD [address] [facility] [place] [address] 2023 Imaging Radiology 06/28/2023 Telemedicine Urology Juan José Walters MD [address] [facility] [address] [place] [address] 07/07/2023 Office Visit Cardiology Jerry Pacheco, DO [address] [place] [address] Scheduled Procedures Name Priority Associated Diagnoses Date/Ti [...] 02/16/2022 LUNG CANCER SCREENING - USE SMARTSET [id number] Completed 03/16/2022, 08/24/2018, 01/03/2017 Influenza Vaccine (FLU [...] filedocumented as of this encounter Care Teams Templer Head Relationship Specialty Start Date End Date Roger Alexandra MD [address] [place] [address] PCP - General Family Medicine 12/29/19 documented as of this encounter
--- OUTSIDE RECORDS SUMMARY | 2023-07-25 04:14 | External Medical Summary | Summary of Care ---
Author Name Unknown Organization [facility] Address [address] [place] [address] Phone [phone] Care Team Providers Care Digital Field Service Technician Name Role Phone Roger Alexandra MD Primary Care Provider [phone] Reason for Visit * Reason Onset Date Comments Advice 04/14/2023 Encounter Details Date Type Department Care Team Description 04/14/2023 Telephone Family Practice [facility] [address] [place] [address] Yara Morris, wood stock blank handler Allergies Active Allergy Reactions Severity Noted Date Comments Aspirin Unknown 12/12/2007 von Willebrand's disease Salicylates 03/01/2000 von Willebrand's disease documented as of this encounter (statuses as of 04/15/2023) Medications Medication Sig Dispensed Refills Start Date [...] D, by GOLD 2017 classification ([facility]),Chronic hypoxemic respiratory failure ([facility]) Use with nebulized meds 1 Each 0 09/16/2022 Active Full Kit Nebulizer SetIndications:COPD, group D, by GOLD 2017 classification ([facility]),Chronic hypoxemic respiratory failure ([facility]) Use with nebulizer 1 Each 0 09/16/2022 [...] diastolic CHF (congestive heart failure) ([facility]) take 1 tablet by mouth once daily [...] spasms. 90 Tablet 0 04/13/2023 Active Nystatin 145463 UNIT/GM External Powder (Nyamyc) apply to affected area twice a day 60 g 1 04/13/2023 Active Hospital, Clinic, or Other Facility Administered Medication Ordered Dose Route Frequency Start Date End Date Status Albuterol Sulfate (Proventil) (2.5 MG/3ML) 0.083% inhalation solution 2.5 mgIndications:COPD, group D, by GOLD 2017 classification ([facility]) 2.5 mg NEBULIZER PRN 03/03/2023 03/02/2024 Acti ve Albuterol Sulfate (Proventil) (5 MG/ML) 0.5% *conc* inhalation solution 2.5 mgIndications:COPD, group D, by GOLD 2017 classification (HCC) 2.5 mg NEBULIZER PRN 03/03/2023 03/02/2024 Acti ve documented as of this encounter (statuses as of 04/15/2023) Active Problems Problem Noted Date Decreased functional [...] as of this encounter (statuses as of 04/15/2023) Resolved Problems Problem Noted Date Resolved Date [...] 02/04/2006 12/21/2008 Atrial septal aneurysm 02/04/2006 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 Walters on 06/28/23. * Telephone Encounter - Tracey Cabrera LPN - 04/15/2023 9:09 AM EDT Still awaiting kailey. Lucien, please call patient to assist with rescheduling appointment. * Telephone Encounter - Yara Morris RN - 04/14/2023 2:42 PM EDT Patient called in asking if results have been received from [facility]. She is having increased pain and pressure. No hematuria on incontinent pad, but noticing increased frequency as well. No fever/chills. Notified that result is the preliminary at this time. She is asking if preliminary result would indicate need for abx? Dr. Walters, Please advise? Thank you Uro Scheduling team, Patient also asking to be called to reschedule the appointment she received a letter regarding. Thank you documented in this encounter Plan of Treatment Upcoming Encounters Date Type Specialty Care Team Description 04/15/2023 Home Visit Family Medicine Félix Otero, [facility] Proof Load Mechanic [address] [place] [address] 04/19/2023 Laboratory Laboratory Processing [facility] [address] [place] [address] 04/20/2023 [facility] [place] [address] [address] [place] [address] 04/20/2023 Office Visit Family Medicine Roger Alexandra MD [address] [place] [address] 05/24/2023 Telemedicine Psychiatry Hugo Alcantara MD [address] [place] [address] 2023 Imaging Radiology 06/28/2023 Telemedicine Urology Juan José Walters MD [address] [place] [address] 07/07/2023 Office Visit Cardiology Jerry Pacheco DO [address] [place] [address] Scheduled Procedures Name Priority Associated Diagnoses Date/Ti [...] ASSESSMENT COMPLETED IN PAST YEAR FOR COPD 03/15/2024 03/15/2023 Diabetes Screening 10/23/2025 10/23/2022, 0 01/15/2022, 01/08/2022, Additional history exists COLONOSCOPY-EVERY 5 YRS AGES 18-100 01/14/2028 01/13/2023, 11/12/2020, 05/22/2013, Additional history exists Lipid Panel 03/09/2028 03/09/2023, 08/15, 09/25/2015, Additional history exists Alpha-1 Antitrypsin Completed 02/16/2022 LUNG CANCER SCREENING - USE SMARTSET 28081 Completed 03/16/2022, 08/24/2018, 01/03/2017 Influenza Vaccine (FLU [...] filedocumented as of this encounter Care Teams Digital Field Service Technician Relationship Specialty Start Date End Date Roger Alexandra MD [address] [place] [address] PCP - General Family Medicine 12/29/19 documented as of this encounter
--- OUTSIDE RECORDS SUMMARY | 2023-07-25 04:14 | External Medical Summary | Summary of Care ---
Author Name Unknown Organization [facility] Address [address] [place] [address] Phone [phone] Care Team Providers Care Fisher Crab Name Role Phone Jeevan Mclean MD Primary Care Provider [phone] Reason for Visit * Reason Onset Date Comments Medication Refill 04/12/2023 Encounter Details Date Type Department Care Team Description 04/12/2023 Refill Family [facility] [address] [place] [address] Jeevan Mclean MD [address] [place] [id number] Chronic bilateral low back pain without sciatica Allergies Active Allergy Reactions Severity Noted Date Comments Aspirin Unknown 12/12/2007 von Willebrand's disease Salicylates 03/01/2000 von Willebrand's disease documented as of this encounter (statuses as of 04/13/2023) Medications Medication Sig Dispensed Refills Start Date End Date Status Warfarin Sodium 5 MG Oral Tablet (Coumadin)Indicatio ns:Paroxysmal atrial fibrillation (HCC) Take by mouth 1 Tablet in the evening. OR As directed by coumadin clinic. 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 14 Capsule 0 02/05/2023 Active Fluticasone-Salmete rol 115-21 MCG/ACT Inhalation Aerosol (Advair Hfa) Inhale [...] Active traMADol HCl 50 MG Oral Tablet (Ultram)Indications :Chronic bilateral low back pain without sciatica Take 2 Tablets by mouth every 8 hours as needed for Pain, Moderate. 180 Tablet 0 04/13/2023 Active Baclofen 10 MG Oral Tablet (Lioresal)Indicatio ns:Chronic bilateral low back pain without sciatica Take 1 Tablet by mouth 3 times a day as needed for Muscle spasms. 90 Tablet 0 04/13/2023 Active Nystatin 481920 UNIT/GM External Powder (Nyamyc) apply to affected area twice a day 60 g 1 04/13/2023 Active Baclofen 10 MG Oral Tablet (Lioresal)Indicatio ns:Chronic bilateral low back pain without sciatica Take 1 Tablet by mouth 3 times a day as needed for Muscle spasms. 90 Tablet 0 03/10/2023 3 Discontinu ed(Refill) Hospital, Clinic, or Other [...] as of this encounter (statuses as of 04/13/2023) Active Problems Problem Noted Date Decreased functional [...] as of this encounter (statuses as of 04/13/2023) Resolved Problems Problem Noted Date Resolved Date [...] 02/04/2006 12/21/2008 Atrial septal aneurysm 02/04/2006 9 nursing home current use 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 0 [...] as of this encounter (statuses as of 04/13/2023) Immunizations Name Administration Dates Next Due H1N1 [...] Telephone Encounter - Jeevan Mclean MD - 04/13/2023 4:31 PM EDTSigned Prescriptions: Disp Refills Baclofen 10 MG Oral Tablet (Lioresal) 90 Tab*0 Sig: Take 1 Tablet by mouth 3 times a day as needed for Muscle spasms. Authorizing Provider: JEEVAN MCLEAN * Telephone Encounter - Héctor Pradhan [facility] - 04/13/2023 2:14 PM EDT Pending Prescriptions: Disp Refills Baclofen 10 MG Oral Tablet (Lioresal) 90 Tab*0 Sig: Take 1 Tablet by mouth 3 times a day as needed for Muscle spasms. * Telephone Encounter - Héctor Pradhan [facility] - 04/13/2023 2:14 PM EDT Pending Prescriptions: Disp Refills Baclofen 10 MG Oral Tablet (Lioresal) 90 Tab*0 Sig: Take 1 Tablet by mouth 3 times a day as needed for Muscle spasms. 09/30/2022 (in office), 12/16/2022 (telemedicine) 04/20/2023 If no future appointments scheduled, and last appointment is greater than a year ago, please schedule patient for a follow-up appointment Last date the medication was ordered: 03/10/23 Pharmacy: [facility] #[id number] Is this request for a controlled substance?No [...] Visit Family Medicine Félix Otero, [facility] Machine Castings Plasterer [address] [place] [address] 04/19/2023 Laboratory Laboratory Processing [facility] Home Draw [address] [place] [address] 04/20/2023 [facility]acy [facility] [address] [place] [address] 04/20/2023 Office Visit Family Medicine Jeevan Mclean MD [address] [place] [address] 05/24/2023 Telemedicine Psychiatry Hugo Alcantara MD [address] [place] [address] 2023 Imaging Radiology 07/07/2023 Office Visit Cardiology Jerry Pacheco DO [address] [place] [address] Scheduled Procedures Name Priority Associated Diagnoses Date/Ti [...] 02/16/2022 LUNG CANCER SCREENING - USE SMARTSET 32605 Completed 03/16/2022, 08/24/2018, 01/03/2017 Influenza Vaccine (FLU [...] sciatica documented in this encounter Care Teams Fisher Crab Relationship Specialty Start Date End Date Jeevan Mclean MD [address] [place] [address] PCP - General Family Medicine 12/29/19 documented as of this encounter
--- OUTSIDE RECORDS SUMMARY | 2023-07-25 04:14 | External Medical Summary | Summary of Care ---
Author Name Unknown Organization [facility] Address [address] [facility] 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 30 Tablet 6 3 Active Nitrofurantoin Monohyd Macro 100 MG Oral Capsule (Macrobid) Take 1 Capsule by mouth in the morning and 1 Capsule before bedtime. With food.. 14 Capsule 0 3 Active Fluticasone-Salmete rol 115-21 MCG/ACT Inhalation Aerosol (Advair Hfa) Inhale 2 Puffs by mouth in the morning and 2 Puffs before bedtime. 12 g 12 3 Active Baclofen 10 MG Oral Tablet (Lioresal)Indicatio ns:Chronic bilateral low back pain without sciatica Take 1 Tablet by mouth 3 times a day as needed for Muscle spasms. 90 Tablet 0 3 Active Donepezil HCl 5 MG Oral Tablet (Aricept) Take 1 Tablet by mouth in the morning. Take with largest meal of the day.. 30 Tablet 2 3 Active Potassium Chloride ER 10 MEQ Oral Capsule Extended Release take 1 capsule by mouth every morning and 1 capsule by mouth BEFORE BEDTIME 60 Capsule 5 3 Active traMADol HCl 50 MG Oral Tablet (Ultram)Indications :Chronic bilateral low back pain without sciatica Take 2 Tablets by mouth every 8 hours as needed for Pain, Moderate. 180 Tablet 0 3 Active Mirtazapine 30 MG Oral Tablet [...] 3 Active Furosemide 20 MG Oral Tablet (Lasix)Indications: Chronic diastolic CHF (congestive heart failure) (HCC) take 1 tablet by mouth once daily if needed for LOWER LEG SWELLING 30 Tablet 1 3 Active Nystatin 329680 UNIT/GM External Powder (Nyamyc) apply to affected area twice a day 60 g 1 3 Active Furosemide 20 MG Oral Tablet (Lasix)Indications: Chronic diastolic CHF (congestive heart failure) (HCC) take 1 tablet by mouth once daily if needed for LOWER LEG SWELLING 30 Tablet 1 3 04/13/20 23 Discontinued Hospital, Clinic, or Other Facility Administered Medication Ordered Dose Route Frequency Start Date End Date Status Albuterol Sulfate (Proventil) (2.5 MG/3ML) 0.083% inhalation solution 2.5 mgIndications:COPD, group D, by GOLD 2017 classification ([facility]) 2.5 mg NEBULIZER PRN 03/03/2023 03/02/2024 Acti ve Albuterol Sulfate (Proventil) (5 MG/ML) 0.5% *conc* inhalation solution 2.5 mgIndications:COPD, group D, by GOLD 2017 classification ([facility]) 2.5 mg NEBULIZER PRN 03/03/2023 03/02/2024 [...] 02/04/2006 12/21/2008 Atrial septal aneurysm 02/04/2006 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 0 06/01/2005 [...] encounter Miscellaneous Notes * Telephone Encounter - Shikha Escobar RPh - 04/13/2023 1:40 PM EDTSigned Prescriptions: Disp Refills Furosemide 20 MG Oral Tablet (Lasix) 30 Tab*1 Sig: take 1 tablet by mouth once daily if needed for LOWER LEG SWELLINGAuthorizing Provider: JEEVAN MCLEAN User: SHIKHA ECSOBAR documented in this encounter Plan of Treatment Upcoming Encounters Date Type Specialty Care Team Description 04/15/2023 Home Visit Family Medicine Félix Otero, [facility] Commercial Painter [address] [place] [address] 04/19/2023 Laboratory Laboratory Processing [facility] [place] Draw [address] [place] [address] 04/20/2023 [facility] [address] [facility] [address] 04/20/2023 Office Visit Family Medicine Jeevan Mclean MD [address] [place] [address] 05/24/2023 Telemedicine Psychiatry Hugo Alcantara MD [address] [place] [address] 2023 Imaging Radiology 07/07/2023 Office Visit Cardiology Jerry Pacheco, DO [address] [place] [address] Scheduled Procedures Name Priority Associated Diagnoses Date/Ti [...] 02/16/2022 LUNG CANCER SCREENING - USE SMARTSET 06012 Completed 03/16/2022, 08/24/2018, 01/03/2017 Influenza Vaccine (FLU [...] of this encounter Visit Diagnoses Diagnosis Chronic diastolic CHF (congestive heart failure) (HCC) Chronic diastolic heart failure documented in this encounter Care Teams Vice President Of Procurement Relationship Specialty Start Date End Date Jeevan Mclean MD [address] [place] [address] PCP - General Family Medicine 12/29/19 documented as of this encounter
--- OUTSIDE RECORDS SUMMARY | 2023-07-25 04:14 | External Medical Summary | Summary of Care ---
Author Name Unknown Organization [facility] Address [address] [place] [address] Phone [phone] Care Team Providers Care Screen Handler Name Role Phone Jeevan Mclean MD Primary Care Provider [phone] Reason for Visit * Reason Onset Date Comments Medication Refill 04/12/2023 Encounter Details Date Type Department Care Team Description 04/12/2023 Refill Family [facility] [address] [place] [address] Jeevan Mclean MD [address] [place] [id number] Chronic bilateral low back pain without sciatica [...] 90 Tablet 3 02/16/2022 Active oxygen IN GASIndications: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 180 Tablet 0 04/13/2023 Active Nystatin 835971 UNIT/GM External Powder (Nyamyc) apply to affected area twice a day 60 g 1 04/13/2023 Active Baclofen 10 MG Oral Tablet (Lioresal)Indicatio ns:Chronic bilateral low back pain without sciatica Take 1 Tablet by mouth 3 times a day as needed for Muscle spasms. 90 Tablet 0 03/10/2023 3 Discontinu ed(Refill) traMADol HCl 50 MG Oral Tablet (Ultram)Indications :Chronic bilateral low back pain without sciatica Take 2 Tablets by mouth every 8 hours as needed for Pain, Moderate. 180 Tablet 0 03/17/2023 3 Discontinu ed(Refill) Hospital, Clinic, or Other Facility Administered Medication Ordered Dose Route Frequency Start Date End Date Status Albuterol Sulfate (Proventil) (2.5 MG/3ML) 0.083% inhalation solution 2.5 mgIndications:COPD, group D, by GOLD 2017 classification ([facility]) 2.5 mg NEBULIZER PRN 03/03/2023 03/02/2024 Acti ve Albuterol Sulfate (Proventil) (5 MG/ML) 0.5% *conc* inhalation solution 2.5 mgIndications:COPD, group D, by GOLD 2017 classification ([facility]) 2.5 mg NEBULIZER PRN 03/03/2023 03/02/2024 [...] 02/04/2006 12/21/2008 Atrial septal aneurysm 02/04/2006 9 long-term current use 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 0 06/01/2005 [...] 04/13/2023 4:31 PM EDTSigned Prescriptions: Disp Refills traMADol HCl 50 MG Oral Tablet (Ultram) 180 Ta*0 Sig: Take 2 Tablets by mouth every 8 hours as needed for Pain, Moderate. Authorizing Provider: JEEVAN MCLEAN * Telephone Encounter - Aly Bryant RP - 04/13/2023 2:53 PM EDTPending Prescriptions: Disp Refills traMADol HCl 50 MG Oral Tablet (Ultram) 180 Ta*0 Sig: Take 2 Tablets by mouth every 8 hours as needed for Pain, Moderate. * Telephone Encounter - Aly Bryant RP - 04/13/2023 2:53 PM EDT I have reviewed the patients controlled substance dispensing history in the Prescription Drug Monitoring Program in compliance with the [facility] regulations before prescribing a controlled substance. PDMP checked on 04/13/2023. Pending Prescriptions: Disp Refills traMADol HCl 50 MG Oral Tablet (Ultram) 180 Ta*0 Sig: Take 2 Tablets by mouth every 8 hours as needed for Pain, Moderate. Last Visit: 09/30/2022 (in office), 12/16/2022 (telemedicine) Next Visit: 04/20/2023 Date medication was last filled: 03-18-23 Date medication is due for refill: 04-16-23 Pharmacy: [email or web address] #[id number] Is this request for a controlled substance? Yes and Urine Drug Screen Not completed Toxicology results: No results found. However, due to the size of the patient record, not all encounters were searched.Please check Results Review for a complete set of results. Please approve if appropriate. Thanks, Aly Bryant, Jose Alfredo.Ph. Clinical Pharmacist [facility] [phone] [id number] 04/13/2023,2:53 PM documented in this encounter Plan of Treatment Upcoming Encounters Date Type Specialty Care Team Description 04/15/2023 Home Visit Family Medicine Félix Otero, [facility] Pin Setter [address] [place] [address] 04/19/2023 Laboratory Laboratory [place] [facility] [place] [facility] Draw [address] [place] [address] 04/20/2023 [facility] [address] [facility] [place] [address] 04/20/2023 Office Visit Family Medicine Jeevan Mclean MD [address] [facility] [place] [address] 05/24/2023 Telemedicine Psychiatry Hugo Alcantara MD [address] [facility] [place] [address] 2023 Imaging Radiology 07/07/2023 Office Visit Cardiology Jerry Pacheco, DO [address] [place] [address] Scheduled Procedures Name Priority Associated Diagnoses Date/Ti [...] 02/16/2022 LUNG CANCER SCREENING - USE SMARTSET 20933 Completed 03/16/2022, 08/24/2018, 01/03/2017 Influenza Vaccine (FLU [...] sciatica documented in this encounter Care Teams Screen Handler Relationship Specialty Start Date End Date Jeevan Mclean MD [address] [place] [address] PCP - General Family Medicine 12/29/19 documented as of this encounter
--- OUTSIDE RECORDS SUMMARY | 2023-07-25 04:14 | External Medical Summary | Summary of Care ---
Author Name Unknown Organization [facility] Address [address] [place] [address] Phone [phone] Care Team Providers Care Hogshead Weigher Name Role Phone Roger Alexandra MD Primary Care Provider [phone] [phone] Encounter Details Date Type Department Care Team Description 04/16/2023 Senior Laboratory Technician Care Coordination [address], [place] [id number] Saray Jones LSW [address], [place] [id number] Depression with anxiety* Allergies Active Allergy Reactions Severity Noted Date Comments Aspirin Unknown 12/12/2007 von Willebrand's disease Salicylates 03/01/2000 von Willebrand's disease documented as of this encounter (statuses as of 04/16/2023) Medications Medication Sig Dispensed Refills Start Date [...] ([facility]),Chronic hypoxemic respiratory failure ([facility]) Use with nebulized meds 1 Each 0 09/16/2022 Active Full Kit Nebulizer SetIndications:COPD, group D, by GOLD 2017 classification ([facility]),Chronic hypoxemic respiratory failure ([facility]) Use with nebulizer 1 Each 0 [...] spasms. 90 Tablet 0 04/13/2023 Active Nystatin 155154 UNIT/GM External Powder (Nyamyc) apply to affected [...] as of this encounter (statuses as of 04/16/2023) Active Problems Problem Noted Date Decreased functional [...] as of this encounter (statuses as of 04/16/2023) Resolved Problems Problem Noted Date Resolved Date [...] as of this encounter (statuses as of 04/16/2023) Immunizations Name Administration Dates Next Due H1N1 [...] as of this encounter Progress Notes * PARVEZ Mason - 04/16/2023 10:27 AM EDT Images from the original note were not included. PAST PSYCHIATRY HISTORY: Are you currently being treated for a mental health or substance use condition? Yes: Diagnosis: depression Ever been treated as an OUTPATIENT (such as a doctor's or therapist's office or a clinic) for a mental health or substance use condition? Yes Ever been HOSPITALIZED for a mental health or substance use condition? No Ever been to the EMERGENCY ROOM for a mental health or substance use condition? No Have you overdosed in the last month? No Medical History DIAGNOSIS: Patient Active Problem List Diagnosis Code Irritable bowel syndrome with diarrhea K58.0 Medical home patient encounter Z00.8 Depression with anxiety F41.8 Obstructive sleep apnea G47.33 Von Willebrand disease ([facility]) D68.00 Idiopathic cardiomyopathy ([facility]) I42.9 Acquired hypothyroidism E03.9 Super obese E66.9 Chronic bilateral low back pain without sciatica M54.50, G89.29 Paroxysmal atrial fibrillation ([facility]) I48.0 Drug-seeking behavior Z76.5 History of multiple strokes Z86.73 Chronic diastolic CHF (congestive heart failure) ([facility]) I50.32 PTSD (post-traumatic stress disorder) F43.10 COPD, group D, by GOLD 2017 classification ([facility]) J44.9 Chronic hypoxemic respiratory failure ([facility]) J96.11 History of narcotic addiction ([facility]) F11.21 Decreased functional mobility R26.89 Oxygen dependent Z99.81 MEDICATIONS: Current Outpatient Medications Medication Sig Dispense Refill [...] before bedtime. With food.. 14 Capsule 0 Fluticasone-Salmeterol 115-21 MCG/ACT Inhalation Aerosol (Advair Hfa) Inhale 2 Puffs by mouth in the morning and 2 Puffs before bedtime. 12 g 12 Donepezil HCl 5 MG Oral Tablet [...] for LOWER LEG SWELLING 30 Tablet 1 traMADol HCl 50 MG Oral Tablet (Ultram) Take 2 Tablets by mouth every 8 hours as needed for Pain, Moderate. 180 Tablet 0 Baclofen 10 MG Oral Tablet (Lioresal) Take 1 Tablet by mouth 3 times a day as needed for Musclespasms. 90 Tablet 0 Nystatin 947274 UNIT/GM External Powder (Nyamyc) apply to affected area twice a day 60 g 1 Current Facility-Administered Medications Medication Dose Route Frequency Provider Last Rate Last Admin Albuterol Sulfate (Proventil) (2.5 MG/3ML) 0.083% inhalation solution 2.5 mg 2.5 mg Nebulizer PRN Juan Quintero MD 2.5 mg at 03/09/23 1107 Albuterol Sulfate (Proventil) (5 MG/ML) 0.5% *conc* inhalation solution 2.5 mg 2.5 mg NebulizerPRN Juan Quintero MD S: [facility] spoke w/ pt over the phone. Pt confirmed name and . [facility] educated pt on recorded line and on [facility]'s role/ scope. Pt agreed to engage. Pt lives at home alone with the support of her granddaughter who is her paid caregiver Wednesday-Wednesday from 8AM-4PM. [facility] reviewed pt's upcoming appointments and completed medication reconciliation. Pt attends psychiatry and has an upcoming appointment. Ptreports strong feelings of depression with a PHQ-9 score of 18. Pt also reports feelings of anxietyaround bedtime and having difficulty sleeping. Pt reports no past hx of BRANDY. When asked if pt can pin point reasons for her depression, Pt states "there are several" but did not elaborate. Pt would like to start therapy via telehealth. [facility] reached out to [facility] where pt was emailed a listof therapy providers accepting pt's insurance at [email or web address]. Pt reports financial difficulties and that she is working with the [facility] on finding housing. Pt was provided resources and states that she will be calling them on Wednesday. Pt reports no additional questions or concerns at this time. REFERRAL: Depression O: Over the phone Patient's report of symptoms/progress (affect, level of awareness, mood): Affect: broad (normal) Level of awareness: alert A: Pt spoke in a clear, level tone of voice. Pt was guarded with [facility] open ended questions. Pt reports deep feelings of depression but denies SI/HI. [facility] educated pt that if these thoughts develop [facility] [phone]- suicide prevention hotline. [facility] attempted to provide pt w/ the number for Crisis however pt decline. [facility] provided pt with [facility] contact information and reviewed red flags. Pt verbalized understanding and agreement Support system: yes Screening Questionnaires: View : No data to display. SISQ - How many times in the past year have you used an illegal drug or used a prescription medicine for non-medical reasons? 0 How many times in the past year have you had X or more drinks in a day? 0 Mood: depressed Cognitive and Mental Health: denies problems and alert and oriented x3 Substance Abuse Use/History: none History of Violence or Trauma: denied Suicidal ideation/Intent: Denied by patient. Homicidal ideation/Intent: Denied. Psychotic symptoms: denied Speech: normal pitch, normal rate and normal volume Thought Process: within normal limits Thought Content: Delusions: No Hallucinations: No Obsessions: No Cognition: grossly intact Insight: good Judgment: good Medications: Taking all medication as directed. Review of Current goals: Connected with patient via phone Discussed the following patient-centered CM goals with the patient during this discussion: -Behavioral Health: Patient will have referral for treatment and counseling -Status: On Track -Appointments: Patient will adhere to scheduled appointments -Status: On Track -Behavioral Health: Patient will participate in their recovery. -Status: On Track Identified Barriers: physical health barriers Senior Laboratory Technician Interventions: enhancement of social supports/resources P: Plan: Call patient in 2-3 weeks (time frame) to reassess and update plan of care. RECOMMENDATIONS: Individual (general) psychotherapy SNP Member? No Does this patient qualify for an annual wellness visit? No PCP Notified of enrollment in CM/HM program: No Is Provider in agreement with POC? No - Pt is not a SNP documented in this encounter Plan of Treatment Upcoming Encounters Date Type Specialty Care Team Description 04/19/2023 Laboratory Laboratory Processing [facility] Mobile Home Draw [address] [place] [address] 04/20/2023 [facility] [address] [place] [address] 04/20/2023 Office Visit Family Medicine Roger Alexandra MD [address] [facility] [place] [address] 05/24/2023 Telemedicine Psychiatry Hugo Alcantara MD [address] [place] [address] 2023 Imaging Radiology 06/28/2023 Telemedicine Urology Juan José Walters MD [address] [place] [address] 07/07/2023 Office Visit Cardiology Jerry Pacheco DO [address] [place] [address] Scheduled Procedures Name Priority Associated Diagnoses Date/Ti [...] 02/16/2022 LUNG CANCER SCREENING - USE SMARTSET 58766 Completed 03/16/2022, 08/24/2018, 01/03/2017 Influenza Vaccine (FLU [...] as of this encounter Visit Diagnoses Diagnosis Depression with anxiety- Primary Dysthymic disorder documented in this encounter Care Teams Hogshead Weigher Relationship Specialty Start Date End Date Roger Alexandra MD [address] [place] [address] PCP - General Family Medicine 12/29/19 documented as of this encounter
--- OUTSIDE RECORDS SUMMARY | 2023-07-25 04:14 | External Medical Summary | Summary of Care ---
Author Name Unknown Organization [facility] Address [address] [place] [address] Phone [phone] Care Team Providers Care Music Therapy Teacher Name Role Phone Roger Alexandra MD Primary Care Provider [phone] Reason for Visit * Reason Onset Date Comments Home Health 04/09/2023 Encounter Details Date Type Department Care Team Description 04/09/2023 Telephone Radiology [facility] 2nd [facility] [address] [place] [address] Juan José Walters MD 27 [facility] [address] [place] [address] Home Health Allergies Active Allergy Reactions Severity Noted Date Comments Aspirin Unknown 12/12/2007 von Willebrand's disease Salicylates 03/01/2000 von Willebrand's disease documented as of this encounter (statuses as of 04/14/2023) Medications Medication Sig Dispensed Refills Start Date [...] before bedtime. 120 Tablet 2 04/07/2023 Active Hospital, Clinic, or Other Facility Administered [...] as of this encounter (statuses as of 04/14/2023) Active Problems Problem Noted Date Decreased functional [...] as of this encounter (statuses as of 04/14/2023) Resolved Problems Problem Noted Date Resolved Date [...] as of this encounter (statuses as of 04/14/2023) Immunizations Name Administration Dates Next Due H1N1 [...] * Telephone Encounter - RUFINA Holland - 04/14/2023 10:40 AM EDT Appt rescheduled to 06/28/23. * Telephone Encounter - Yvonne Esquivel LPN - 04/09/2023 12:19 PM EDT FYI * Telephone Encounter - Temi West LPN - 04/09/2023 12:02 PM EDT Amber Nurse from [facility] is calling. States that the pt is refusing a home health visit today 04/09/2023 but is agreeable to originally scheduled visit on 04/13/2023. Will obtain urine on 04/13/2023. FYI. documented in this encounter Plan of Treatment Upcoming Encounters Date Type Specialty Care Team Description 04/15/2023 Home Visit Family Medicine Félix Otero, Community Health Landscape Engineer [address] [place] [address] 04/19/2023 Laboratory Laboratory Processing [facility], [facility] Mobile Home Draw [address] [place] [address] 04/20/2023 [facility] [address] [place] [address] 04/20/2023 Office Visit Family Medicine Roger Alexandra MD [address] [place] [address] 05/24/2023 Telemedicine Psychiatry Hugo Alcantara MD [address] [place] [address] 2023 Imaging Radiology 06/28/2023 Telemedicine Urology Juan [facility] [address] [place] [address] 07/07/2023 Office Visit Cardiology Jerry Pacheco DO [address] [place] [address] Scheduled Procedures Name Priority Associated Diagnoses Date/Ti [...] 02/16/2022 LUNG CANCER SCREENING - USE SMARTSET [id number] Completed 03/16/2022, 08/24/2018, 01/03/2017 Influenza Vaccine (FLU [...] filedocumented as of this encounter Care Teams Music Therapy Teacher Relationship Specialty Start Date End Date Roger Alexandra MD 132 [facility] [place] [address] PCP - General Family Medicine 12/29/19 documented as of this encounter
--- OUTSIDE RECORDS SUMMARY | 2023-07-25 04:14 | External Medical Summary | Summary of Care ---
Author Name Unknown Organization [facility] Address [address] [place] [address] Phone [phone] Care Team Providers Care Concrete Boom Operator Name Role Phone Roger Alexandra MD Primary Care Provider [phone] Reason for Visit * Reason Onset Date Comments Home Health 04/09/2023 Encounter Details Date Type Department Care Team Description 04/09/2023 Telephone Radiology [facility] 2nd [facility] [address] [place] [address] Juan José Walters MD 27 [facility] [address] [place] [address] Home Health Allergies Active Allergy Reactions [...] Telephone Encounter - Tracey Cabrera LPN - 04/16/2023 9:13 AM EDT Sensitivities received, given to Lucien to scan. Please advise once reviewed. Thank you Ammy * Telephone Encounter - Tracey Cabrera LPN - 04/14/2023 1:[address] Romeo GUTIERREZ, pending urine culture results are scanned in, sensitivities not yet available. Thank you Ammy * Telephone Encounter - RUFINA Holland - 04/14/2023 10:40 AM EDT Appt rescheduled to 06/28/23. * Telephone Encounter - Yvonne Esquivel LPN - 04/09/2023 12:19 PM EDT MATT * Telephone Encounter - Temi West LPN - 04/09/2023 12:02 PM EDT Amber Nurse from [facility] is calling. States that the pt is refusing a home health visit today 04/09/2023 but is agreeable to originally scheduled visit on 04/13/2023. Will obtain urine on 04/13/2023. MATT. documented in this encounter Plan of Treatment Upcoming Encounters Date Type Specialty Care Team Description 04/19/2023 Laboratory Laboratory Processing [facility], [facility] Draw [address] [facility] [address] 04/20/2023 [facility] [address] 60 [facility] [place] [address] 04/20/2023 Office Visit Family Medicine Roger Alexandra MD 132 [facility] [place] [address] 05/24/2023 Telemedicine Psychiatry Hugo Alcantara MD [address] [facility] [place] [address] 2023 Imaging Radiology 06/28/2023 Telemedicine Urology Juan José Walters MD [address] [place] [address] 07/07/2023 Office Visit Cardiology Jerry Pacheco, DO [address] [place] [address] Scheduled Procedures Name Priority Associated Diagnoses Date/Ti [...] 02/16/2022 LUNG CANCER SCREENING - USE SMARTSET [id number] Completed 03/16/2022, 08/24/2018, 01/03/2017 Influenza Vaccine (FLU [...] filedocumented as of this encounter Care Teams Concrete Boom Operator Relationship Specialty Start Date End Date Roger Alexandra MD [address] [place] [address] PCP - General Family Medicine 12/29/19 documented as of this encounter
--- OUTSIDE RECORDS SUMMARY | 2023-07-25 04:14 | External Medical Summary ---
Author Name Unknown Address Unknown Organization [facility] [place] [address] [place] [address] Laboratory Report Ordering Provider Test Date Status SUMAN STANFORD 04/19/2023 10:09:00 Final Observation Date Value Abnormality Reference (Units ) Status PT 04/19/2023 10:09:00 33.0 Above high normal 11 .6-15.2 (seconds) Final INR 04/19/2023 10:09:00 3.2 Above high normal 0. 8-1.2 Final Performing Location [facility] [place] [address] [place] [address]
--- OUTSIDE RECORDS SUMMARY | 2023-07-25 04:14 | External Medical Summary | Summary of Care ---
Author Name Unknown Organization [facility] Address [address] [place] [address] Phone [phone] Care Team Providers Care Watch Engine Operator Name Role Phone Roger Aelxandra MD Primary Care Provider [phone] Reason for Visit * Reason Onset Date Comments Home Health 04/09/2023 Encounter Details Date Type Department Care Team Description 04/09/2023 Telephone Radiology [facility] 2nd [facility] [address] [place] [address] Juan José Walters MD 27 [facility] [address] [place] [address] Home Health Allergies Active Allergy Reactions [...] D, by GOLD 2017 classification ([facility]),Chronic hypoxemic respiratory failure ([facility]) Use with nebulized meds 1 Each 0 09/16/2022 Active Full Kit Nebulizer SetIndications:COPD, group D, by GOLD 2017 classification ([facility]),Chronic hypoxemic respiratory failure ([facility]) Use with nebulizer 1 Each [...] D, by GOLD 2017 classification ([facility]) 2.5 mg NEBULIZER PRN 03/03/2023 03/02/2024 Acti ve Albuterol Sulfate (Proventil) (5 MG/ML) 0.5% *conc* inhalation solution 2.5 mgIndications:COPD, group D, by GOLD 2017 classification ([facility]) 2.5 mg NEBULIZER PRN 03/03/2023 [...] 04/09/2023 12:02 PM EDT Amber Nurse from [facility] is calling. States that the pt is refusing a home health visit today 04/09/2023 but is agreeable to originally scheduled visit on 04/13/2023. Will obtain urine on 04/13/2023. FYI. documented in this encounter Plan of Treatment Upcoming Encounters Date Type Specialty Care Team Description 04/15/2023 Home Visit Family Medicine Félix Otero, Community Health Inspector And Sorter [address] [place] [address] 04/19/2023 Laboratory Laboratory Processing [facility] Mobile Home Draw [address] [place] [address] 04/20/2023 [facility] [address] [place] [address] 04/20/2023 Office Visit Family Medicine Roger Alexanrda MD 132 [facility] [place] [address] 05/24/2023 Telemedicine Psychiatry Hugo Alcantara MD [address] [place] [address] 2023 Imaging Radiology 06/28/2023 Telemedicine Urology Juan José Walters MD [address] [place] [address] 07/07/2023 Office Visit Cardiology Jerry Pacheco, DO [address] [place] [address] Scheduled Procedures Name Priority Associated Diagnoses Date/Ti [...] 02/16/2022 LUNG CANCER SCREENING - USE SMARTSET [id number] Completed 03/16/2022, 08/24/2018, 01/03/2017 Influenza Vaccine (FLU [...] filedocumented as of this encounter Care Teams Watch Engine Operator Relationship Specialty Start Date End Date Roger Alexandra MD [address] [place] [address] PCP - General Family Medicine 12/29/19 documented as of this encounter
--- OUTSIDE RECORDS SUMMARY | 2023-07-25 04:14 | External Medical Summary | Summary of Care ---
Author Name Unknown Organization [facility] Address [address] [place] [address] Phone [phone] Care Team Providers Care Manager Policy Name Role Phone Roger Alexandra MD Primary Care Provider [phone] Reason for Visit * Reason Onset Date Comments Home Health 04/09/2023 Encounter Details Date Type Department Care Team Description 04/09/2023 Telephone Radiology [facility] 2nd [facility] [address] [place] [address] Juan José Walters MD 27 [facility] [address] [place] [address] Home Health Allergies Active Allergy Reactions [...] With food.. 20 Capsule 0 04/16/2023 Active Hospital, Clinic, or Other Facility Administered [...] Telephone Encounter - Tracey Cabrera LPN - 04/20/2023 9:33 AM EDT Pt aware * Addendum Note - Juan José Walters MD - 04/16/2023 12:23 PM EDTAddended by: JUAN JOSÉ WALTERS on: 04/16/2023 12:23 PM Modules accepted: Orders * Telephone Encounter - Juan José Walters MD - 04/16/2023 12:23 PM EDT Bacteria pansensitive, prescription for Macrobid provided. Thanks, HM * Telephone Encounter - Tracey [...] Alexandra MD [address] [place] [address] 05/24/2023 Telemedicine Psychiatry Hugo Alcantara MD [address] [place] [address] 2023 Imaging Radiology 06/28/2023 Telemedicine Urology Juan José Walters MD [address] [place] [address] 07/07/2023 Office Visit Cardiology Jerry Pacheco DO [address] [place] [address] Scheduled Procedures Name Priority Associated Diagnoses Date/Ti [...] 02/16/2022 LUNG CANCER SCREENING - USE SMARTSET 94989 Completed 03/16/2022, 08/24/2018, 01/03/2017 Influenza Vaccine (FLU [...] filedocumented as of this encounter Care Teams Manager Policy Relationship Specialty Start Date End Date Roger Alexandra MD [address] [place] [address] PCP - General Family Medicine 12/29/19 documented as of this encounter
--- OUTSIDE RECORDS SUMMARY | 2023-07-25 04:14 | External Medical Summary | Summary of Care ---
Author Name Unknown Organization [facility] Address [address] [place] [address] Phone [phone] Care Team Providers Care Rn Field Name Role Phone Roger Alexandra MD Primary Care Provider [phone] Reason for Visit * Reason Onset Date Comments case management 04/13/2023 Encounter Details Date Type Department Care Team Description 04/13/2023 Solutions Sales Consultant Telephone [facility] [address] [place] [address] Yara Morris, management recruiter Allergies Active Allergy Reactions Severity Noted Date [...] diastolic CHF (congestive heart failure) ([facility]) take 1 tablet by mouth once daily [...] spasms. 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 Home health did obtain straight cath urine sample. She has pressure and burning, frequency. No fever or chills. Became tearful on the phone, reports feeling lonely, unable to sleep at night. Increased stress would like to find different housing, her rent is very expensive currently. She misses her who has . She is worried that she "did something wrong" When she received a letter that urology appt was canceled. O: phone call follow up A: Alert and oriented, tearful, anxious P: message to urology. Reassured patient she did not do anything wrong, will get her urology appointment rescheduled. Discussed [facility] to help find counselor services. She does see psychiatrist. documented in this encounter Plan of Treatment Upcoming Encounters Date Type Specialty Care Team Description 04/15/2023 Home Visit Family Medicine Félix Otero, Community Health Judicial Assistant [address] [place] [address] 04/19/[address] [facility] Mobile Home Draw [address] [place] [address] 04/20/2023 [facility] [address] [place] [address] 04/20/2023 Office Visit Family Medicine Roger Alexandra MD [address] [place] [address] 05/24/2023 Telemedicine Psychiatry Hugo Alcantara MD [address] [facility] [place] [address] 2023 Imaging Radiology 06/28/2023 Telemedicine Urology Juan José Walters MD [address] [place] [address] 07/07/2023 Office Visit Cardiology Jerry Pacheco, DO [address] [place] [address] Scheduled Procedures Name Priority Associated Diagnoses Date/Ti [...] 02/16/2022 LUNG CANCER SCREENING - USE SMARTSET 42754 Completed 03/16/2022, 08/24/2018, 01/03/2017 Influenza Vaccine (FLU [...] filedocumented as of this encounter Care Teams Rn Field Relationship Specialty Start Date End Date Roger Alexandra MD [address] [place] [address] PCP - General Family Medicine 12/29/19 documented as of this encounter
--- OUTSIDE RECORDS SUMMARY | 2023-07-25 04:14 | External Medical Summary | Summary of Care ---
Author Name Unknown Organization [facility] Address [address] [place] [facility] [place] [address] Phone [phone] Care Team Providers Care Addiction Psychiatrist Name Role Phone Roger Alexandra MD Primary Care Provider [phone] Reason for Visit * Reason Comments Dosage Adjustment Via Phone (anticoag Cl inic) Encounter Details Date Type Department Care Team Description 04/20/2023 Anticoagulation Pharmacy Call Center [address] [facility] [place] [address] [facility] [address] [place] [address] Anticoagulation management encounter* Allergies Active Allergy Reactions [...] PD, group D, by GOLD 2017 classification ([facility]),Chronic hypoxemic respiratory failure ([facility]) Use with nebulized meds 1 Each 0 09/16/2022 Active Full Kit Nebulizer SetIndications:COPD, group D, by GOLD 2017 classification ([facility] [...] hronic diastolic CHF (congestive heart failure) (HCC) take [...] spasms. 90 Tablet 0 04/13/2023 Active Nystatin 891620 UNIT/GM External Powder (Nyamyc) apply to affected [...] 02/04/2006 12/21/2008 Atrial septal aneurysm 02/04/2006 9 [facility] current use 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 0 06/01/2005 [...] of this encounter Progress Notes * RUFINA Briseno - 04/20/2023 8:10 AM EDT Contacts Type Contact Phone/Fax 04/20/2023 08:08 AM EDT Phone (Outgoing) Kimberly Kendall (Self) [phone] (M) Left Message Advised patient to contact Anticoagulation Clinic if any unusual bruising or bleeding, recent illness, changes in medication, or questions/concerns. PT/INR results, Coumadin dose instructions, and next PT/INR date communicated as noted by Pharmacist: Yes MYG sent RUFINA Briseno 04/20/2023, 8:10 AM * Kim Mercado RP - 04/20/2023 8:02 AM EDT Images from the original note were not included. Coumadin Clinic (region specific) Current Warfarin Dose As of 04/20/2023 Warfarin maintenance plan: 5 mg (5 mg x 1) every day INR Result As of 04/20/2023 INR goal: 2.0-3.0 INR used for dosin.2 (04/19/2023) Warfarin Plan As of 04/20/2023 Full warfarin instructions: 04/20: Hold; Otherwise 5 mg every day Next INR check: 05/10/2023 Repeat PT/INR in 3 week(s) Weekly dose: not changed Additional Dosing Information: Description GML Also sent MyG after trying to call Tech to contact patient with dose instructions as noted. Kim Mercado [facility] 04/20/2023, 8:02 AM documented in this encounter Plan of Treatment Upcoming Encounters Date Type Specialty Care Team Description 04/20/2023 Office Visit Family Medicine Roger Alexandra MD [address] [place] [address] 05/24/2023 Telemedicine Psychiatry Hugo Alcantara MD [address] [place] [address] 2023 Imaging Radiology 06/28/2023 Telemedicine Urology Juan José Walters MD [address] [facility] [place] [address] 07/07/2023 Office Visit Cardiology Jerry Pacheco DO [address] [place] [address] Scheduled Procedures Name Priority Associated Diagnoses Date/Ti [...] 02/16/2022 LUNG CANCER SCREENING - USE SMARTSET 54089 Completed 03/16/2022, 08/24/2018, 01/03/2017 Influenza Vaccine (FLU [...] monitoring documented in this encounter Care Teams Addiction Psychiatrist Relationship Specialty Start Date End Date Roger Alexandra MD [address] [place] [address] PCP - General Family Medicine 12/29/19 documented as of this encounter
--- OUTSIDE RECORDS SUMMARY | 2023-07-25 04:14 | External Medical Summary | Summary of Care ---
Author Name Unknown Organization [facility] Address [address] [place] [address] Phone [phone] Care Team Providers Care Representative Personal Service Name Role Phone Roger Alexandra MD Primary Care Provider [phone] Encounter Details Date Type Department Care Team Description 04/15/2023 Home Visit Care Coordination [address], [place] [id number] Félix Otero, [facility] [address], [place] [phone] Allergies Active Allergy Reactions Severity Noted Date [...] PD, group D, by GOLD 2017 classification ([facility]),Chronic hypoxemic respiratory failure ([facility]) Use with nebulized meds 1 Each 0 09/16/2022 Active Full Kit Nebulizer SetIndications:COPD, group D, by GOLD 2017 classification ([facility]),Chronic hypoxemic respiratory failure ([facility]) Use with nebulizer 1 Each 0 09/16/2022 [...] (Lasix)Indications:C hronic diastolic CHF (congestive heart failure) ([facility]) take 1 tablet by mouth once daily [...] spasms. 90 Tablet 0 04/13/2023 Active Nystatin 897011 UNIT/GM External Powder (Nyamyc) apply to affected area twice a day 60 g 1 04/13/2023 Active Hospital, Clinic, or Other Facility Administered Medication Ordered Dose Route Frequency Start Date End Date Status Albuterol Sulfate (Proventil) (2.5 MG/3ML) 0.083% inhalation solution 2.5 mgIndications:COPD, group D, by GOLD 2017 classification (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 [...] Sign Reading Time Taken Comments Blood Pressure 118/68 04/15/2023 12:26 PM EDT Pulse 104 04/15/2023 12:26 PM EDT Temperature 37.1 C (98.7 F) 04/15/2023 12:26 PM E DT Respiratory Rate 20 04/15/2023 12:26 PM EDT Oxygen Saturation 91% 04/15/2023 12:26 PM EDT Inhaled Oxygen Concentration - - Weight 142.7 kg (314 lb 8 oz) 04/15/2023 12:26 P M EDT Height - - Body Mass Index 57.52 03/09/2023 11:13 AM EDT documented in this encounter Progress Notes * Félix Otero, [facility] - 04/15/2023 3:32 PM EDT [facility] Visit Date: 04/15/2023 Time: 3:32 PM Name: Kimberly Kendall : 1960 Referral Source: activities manager Source of Information: Patient Spoken language: Irish Patient can read in Irish: Yes. Animal Killer needed: No. COVID-19 screening completed: Yes Vitals: Vital signs completed: Yes, vital signs within normal range. BP 118/68 (BP Site: Left Arm, BP Position: Sitting, BP Cuff Size: Regular) | Pulse 104 | Temp 37.1 C (98.7 F) (Infrared ) | Resp 20 | Wt (!) 142.7 kg (314 lb 8 oz) | SpO2 91% | BMI 57.52 kg/m |BSA 2.5 m Condition Changes: Changes in health or social status since last visit: Pt needs help with finding affordable housing. The patient has new concerns since last visit: Yes, see above Progress towards goals since last visit: Pt has been home and independent as possible. Medications: Medication review completed? Yes, no gaps identified Does the patient have barriers to medication adherence? No. Patient reports difficulty paying for medications or might in the future: No. Telehealth: This is a telehealth visit: No. Symptoms Surveys and Evaluations: [facility] completed this visit: No. Last flowsheet values for [facility]: Age 65+: 0 (03/15/2023 9:00 AM) Diagnosis (3 or more co-existing): 1 (03/15/2023 9:00 AM) Prior history of falls within 3 months: 0 (03/15/2023 9:00 AM) Incontinence: 1 (03/15/2023 9:00 AM) Visual impairment: 1 (03/15/2023 9:00 AM) Impaired functional mobility: 1 (03/15/2023 9:00 AM) Environmental hazards: 0 (03/15/2023 9:00 AM) Poly Pharmacy (4 or more prescriptions - any type): 1 (03/15/2023 9:00 AM) Pain affecting level of function: 1 (03/15/2023 9:00 AM) Cognitive impairment: 1 (03/15/2023 9:00 AM) Score - a score of 4 or more is considered at risk for fallin (03/15/2023 9:00 AM) Social Determinants of Health: Safety: o Patient reports feeling unsafe in their home: No. Housing: o Patient reports they are at risk of becoming homeless: No. Home/Living situation: o Patient lives alone: Yes o Bathroom is located 1st floor o Bedroom is located 1st floor o Patient has to go up and down steps: No. Patient receives help from family/friends/neighbors/community agencies etc.: Yes. Type of help the patient receives: Grand daughter is paid caregiver through waiver. Patient perceives the help they receive as adequate: o Yes. DME: o DME used: Walker, O2 and Shower chair o Patient has concerns related to DME: No. Financial: Patient reports experiencing a financial hardship: Yes. Financial services the patient currently receives: None Patient requests additional financial help with affordable housing Specify plan/referrals/care team members notified: EMERSON gave the pt information on [facility] Housing and other services available to [facility] residents. o Employment: o Patient is unemployed or without regular income: No. Utilities: o Patient reports difficulty paying heating, water, or electric bill: No. Transportation: o Patient drives: No. o Does anyone drive patient to appointments and shopping? Yes. o Patient receives community or public transportation assistance: No. o Patient reports trouble getting a ride to medical visits or work: Never True. Clothing: o Patient reports being unable to get clothing when it was really needed: No. Food insecurity: o Patient has concerns surrounding meals/food: No. o Within the past 12 months patient worried food would run out before having money to buy more: Never True. o Within the past 12 months the food patient bought did not last and did not have money to get more: Never True o Food is needed for this week: No. Caregiver/Childcare: o Patient feels overwhelmed with taking care of a child, family member or friend: No. o If caregiver is present, patient reports adequate support: Yes. Connections: o How often do you feel lonely or isolated from those around you? Sometimes. Specify plan/referrals/care team members notified: RNCM aware Plan: Plan for the patient PCP 04/20/23 Follow Up: Patient encouraged to call the intake phone number for all urgent but not emergent issues. Scheduled to follow up with patient as needed and scheduled. [facility] 04/15/2023 3:32 PM documented in this encounter Plan of Treatment Upcoming Encounters Date Type Specialty Care Team Description 04/19/2023 Laboratory Laboratory Processing [facility], [facility] Mobile Home Draw [address] [place] [address] 04/20/2023 [facility] [address] [place] [address] 04/20/2023 Office Visit Family Medicine Roger Alexandra MD [address] [place] [address] 05/24/2023 Telemedicine Psychiatry Hugo Alcantara MD [address] [place] [address] 2023 Imaging Radiology 06/28/2023 Telemedicine Urology Juan José Walters MD [address] [place] [address] 07/07/2023 Office Visit Cardiology Jerry Pacheco, DO [address] [place] [address] Scheduled Procedures Name Priority Associated Diagnoses Date/Ti [...] 02/16/2022 LUNG CANCER SCREENING - USE SMARTSET 30179 Completed 03/16/2022, 08/24/2018, 01/03/2017 Influenza Vaccine (FLU [...] filedocumented as of this encounter Care Teams Representative Personal Service Relationship Specialty Start Date End Date Roger Alexandra MD [address] [place] [address] PCP - General Family Medicine 12/29/19 documented as of this encounter"
--- OUTSIDE RECORDS SUMMARY | 2023-07-25 04:14 | External Medical Summary | Summary of Care ---
Author Name Unknown Organization [facility] Address [address] [place] [address] Phone [phone] Care Team Providers Care Tar Heater Name Role Phone Roger Alexandra MD Primary Care Provider [phone] Reason for Visit * Reason Onset Date Comments Home Health 04/09/2023 Encounter Details Date Type Department Care Team Description 04/09/2023 Telephone Radiology [facility] [address] [place] [address] Juan José Walters MD [address] [facility] [address] [place] [address] Home Health Allergies Active Allergy Reactions [...] 02/04/2006 12/21/2008 Atrial septal aneurysm 02/04/2006 9 [facility] current use 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 0 06/01/2005 [...] encounter Miscellaneous Notes * Addendum Note - Juan José Walters [...] EDT MATT * Telephone Encounter - Temi Wets LPN - 04/09/2023 12:02 PM EDT Amber, Nurse from [facility] is calling. States that the pt is refusing a home health visit today 04/09/2023 but is agreeable to originally scheduled visit on 04/13/2023. Will obtain urine on 04/13/2023. FYI. documented in this encounter Plan of Treatment Upcoming Encounters Date Type Specialty Care Team Description 04/19/[address] [facility], [facility] Mobile Home Draw [address] [place] [address] 04/20/2023 [facility] [address] [place] [address] 04/20/2023 Office Visit Family Medicine Roger Alexandra MD [address] [facility] [id number] 05/24/2023 Telemedicine Psychiatry Hugo Alcantara MD [address] [place] [address] 2023 Imaging Radiology 06/28/2023 Telemedicine Urology Juan José Walters MD [address] [facility] [address] [place] [address] 07/07/2023 Office Visit Cardiology Jerry Pacheco DO [address] [place] [address] Scheduled Procedures Name Priority Associated Diagnoses Date/Ti [...] 02/16/2022 LUNG CANCER SCREENING - USE SMARTSET 36629 Completed 03/16/2022, 08/24/2018, 01/03/2017 Influenza Vaccine (FLU [...] filedocumented as of this encounter Care Teams Tar Heater Relationship Specialty Start Date End Date Roger Alexandra MD [address] [place] [address] PCP - General Family Medicine 12/29/19 documented as of this encounter
--- OUTSIDE RECORDS SUMMARY | 2023-07-25 04:15 | External Medical Summary | Summary of Care ---
Author Name Unknown Organization [facility] Address [address] [place] [address] Phone [phone] Care Team Providers Care Community Relations Liaison Name Role Phone Roger Alexandra MD Primary Care Provider [phone] Reason for Visit * Reason Onset Date Comments Medication Refill 04/07/2023 Encounter Details Date Type Department Care Team Description 04/07/2023 Refill Psychiatry, [facility] [address] [place] [address] Hugo Alcantara MD [address] [place] [address] Allergies Active Allergy Reactions Severity Noted Date Comments Aspirin Unknown 12/12/2007 von Willebrand's disease Salicylates 03/01/2000 von Willebrand's disease documented as of this encounter (statuses as of 04/07/2023) Medications Medication Sig Dispensed Refills Start Date End Date Status Warfarin Sodium 5 MG Oral Tablet (Coumadin)Indicatio ns:Paroxysmal atrial fibrillation (HCC) Take by mouth 1 Tablet in the evening. OR As directed by coumadin clinic. 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 14 Capsule 0 02/05/2023 Active Furosemide 20 MG Oral Tablet (Lasix)Indications: Chronic diastolic CHF (congestive heart failure) ([facility]) take 1 tablet by mouth once daily if needed for LOWER LEG SWELLING 30 Tablet 1 02/16/2023 Active Nystatin 402740 UNIT/GM External Powder (Nyamyc) apply to affected area twice a day 60 g 1 03/08/2023 Active Fluticasone-Salmete rol 115-21 MCG/ACT Inhalation Aerosol (Advair Hfa) Inhale 2 Puffs by mouth in the morning and 2 Puffs before bedtime. 12 g 12 03/09/2023 Active Baclofen 10 MG Oral Tablet (Lioresal)Indicatio ns:Chronic bilateral low back pain without sciatica Take 1 Tablet by mouth 3 times a day as needed for Muscle spasms. 90 Tablet 0 03/10/2023 Active Donepezil HCl 5 MG Oral Tablet (Aricept) Take 1 Tablet by mouth in the morning. Take with largest meal of the day.. 30 Tablet 2 03/11/2023 Active Potassium Chloride ER 10 MEQ Oral Capsule Extended Release take 1 capsule by mouth every morning and 1 capsule by mouth BEFORE BEDTIME 60 Capsule 5 03/15/2023 Active traMADol HCl 50 MG Oral Tablet (Ultram)Indications :Chronic bilateral low back pain without sciatica Take 2 Tablets by mouth every 8 hours as needed for Pain, Moderate. 180 Tablet 0 03/17/2023 Active Mirtazapine 30 MG Oral Tablet (Remeron) [...] before bedtime. 120 Tablet 2 04/07/2023 Active busPIRone HCl 10 MG Oral Tablet (Buspar) Take 2 Tablets by mouth in the morning and 2 Tablets before bedtime. 120 Tablet 2 12/16/2022 3 Discontinu ed(Refill) Hospital, Clinic, or Other Facility Administered Medication Ordered Dose Route Frequency Start Date End Date Status Albuterol Sulfate (Proventil) (2.5 MG/3ML) 0.083% inhalation solution 2.5 mgIndications:COPD, group D, by GOLD 2017 classification ([facility]) 2.5 mg NEBULIZER PRN 03/03/2023 03/02/2024 Acti ve Albuterol Sulfate (Proventil) (5 MG/ML) 0.5% *conc* inhalation solution 2.5 mgIndications:COPD, group D, by GOLD 2017 classification ([facility]) 2.5 mg NEBULIZER PRN 03/03/2023 03/02/2024 Acti ve documented as of this encounter (statuses as of 04/07/2023) Active Problems Problem Noted Date Decreased functional [...] as of this encounter (statuses as of 04/07/2023) Resolved Problems Problem Noted Date Resolved Date [...] 02/04/2006 12/21/2008 Atrial 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 Authorizing Provider: HUGO ALCANTARA * Telephone Encounter - Saray Ann LPN - 04/07/2023 7:29 AM EDT Patient calling for refill on Buspar. Medication was last filled on 12/16/2022 with 2 refills. Patient last seen on 03/22/2023 with return appointment scheduled for 05/24/2023. Patient had 0 cancelled appointments and 0 NO SHOW appointments. documented in this encounter Plan of Treatment Upcoming Encounters Date Type Specialty Care Team Description 04/19/2023 Laboratory Laboratory Processing [facility], [facility] Mobile Home Draw [address] [place] [facility] [place] [address] 04/20/2023 [facility] [place] [address] [address] [place] [address] 04/20/2023 Office Visit Family Medicine Roger Alexandra MD [address] [place] [address] 05/24/2023 Telemedicine Psychiatry Hugo Alcantara MD [address] [place] [address] 2023 Imaging Radiology 06/11/2023 Telemedicine Urology Juan José Walters MD [address] [place] [address] 07/07/2023 Office Visit Cardiology Jerry Pacheco DO [address] [place] [address] Scheduled Procedures Name Priority Associated Diagnoses Date/Ti [...] 02/16/2022 LUNG CANCER SCREENING - USE SMARTSET 70722 Completed 03/16/2022, 01/03/2017 Influenza Vaccine (FLU shot) Completed , [...] filedocumented as of this encounter Care Teams Community Relations Liaison Relationship Specialty Start Date End Date Roger Alexandra MD [address] [place] [address] PCP - General Family Medicine 12/29/19 documented as of this encounter
--- OUTSIDE RECORDS SUMMARY | 2023-07-25 04:15 | External Medical Summary | Summary of Care ---
Author Name Unknown Organization [facility] Address [address] [facility] [address] Phone [phone] Care Team Providers Care Associate Dentist Name Role Phone Roger Alexandra MD Primary Care Provider [phone] [phone] Reason for Visit * Reason Onset Date Comments Test Results 03/13/2023 Encounter Details Date Type Department Care Team Description 03/13/2023 Telephone Cardiology, [facility] [address] [place] [address] Jerry Pacheco, [address] [place] [address] Test Results Allergies Active Allergy Reactions Severity Noted Date Comments Aspirin Unknown 12/12/2007 von Willebrand's disease Salicylates 03/01/2000 von Willebrand's disease documented as of this encounter (statuses as of 03/17/2023) Medications Medication Sig Dispensed Refills Start Date End Date Status Warfarin Sodium 5 MG Oral Tablet (Coumadin)Indicatio ns:Paroxysmal atrial fibrillation (HCC) Take by mouth 1 Tablet in the evening. OR As directed by coumadin clinic. 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),COPD, group D, [...] OPD, group D, by GOLD 2017 classification ([facility]),Chronic hypoxemic respiratory failure ([facility]) Use with nebulized meds 1 Each 0 09/16/2022 Active Full Kit Nebulizer SetIndications:COPD , group D, by GOLD 2017 classification ([facility]),Chronic hypoxemic respiratory failure ([facility]) Use with nebulizer 1 Each 0 09/16/2022 Active ProAir HFA 108 (90 Base) MCG/ACT Inhalation Aerosol SolutionIndications :Bronchitis, complicated Inhale 2 Puffs by mouth in the morning and 2 Puffs at noon and 2 Puffs in the evening and 2 Puffs before bedtime. 18 g 1 09/29/2022 Active Omeprazole 20 MG Oral Capsule Delayed Release (PriLOSEC) take 1 capsule by mouth IN THE MORNING and 1 capsule BEFORE BEDTIME 60 Capsule 5 10/05/2022 Active Albuterol Sulfate 0.63 MG/3ML Inhalation Nebulization Solution (Accuneb) Inhale 1 Vial (0.63 mg) via nebulizer every 4 hours as needed for Wheezing or Shortness of Breath. 540 mL 12 10/23/2022 Active busPIRone HCl 10 MG Oral Tablet (Buspar) Take 2 Tablets by mouth in the morning and 2 Tablets before bedtime. 120 Tablet 2 12/16/2022 Active Isosorbide Mononitrate ER 30 MG Oral [...] (Lasix)Indications: Chronic diastolic CHF (congestive heart failure) ([facility]) take 1 tablet by mouth once daily if needed for LOWER LEG SWELLING 30 Tablet 1 02/16/2023 Active LORazepam 0.5 MG Oral Tablet (Ativan) Take 1 Tablet by mouth every 8 hours as needed for Anxiety. 90 Tablet 1 02/24/2023 Active Nystatin 856520 UNIT/GM External Powder (Nyamyc) apply to affected area twice a day 60 g 1 03/08/2023 Active Fluticasone-Salmete rol 115-21 MCG/ACT Inhalation Aerosol (Advair Hfa) Inhale 2 Puffs by mouth in the morning and 2 Puffs before bedtime. 12 g 12 03/09/2023 Active Ipratropium-Albuter ol 0.5-2.5 (3) MG/3ML Inhalation Solution (Duoneb) Inhale 3 mL by mouth every 6 hours as needed for Wheezing. 90 mL 3 03/09/2023 Active Baclofen 10 MG Oral Tablet (Lioresal)Indicatio ns:Chronic bilateral low back pain without sciatica Take 1 Tablet by mouth 3 times a day as needed for Muscle spasms. 90 Tablet 0 03/10/2023 Active Donepezil HCl 5 MG Oral Tablet (Aricept) Take 1 Tablet by mouth in the morning. Take with largest meal of the day.. 30 Tablet 2 03/11/2023 Active Vitron-C 65-125 MG Oral Tablet (Iron-Vitamin C 65-125 mg per tab)Indications:Oth er iron deficiency anemia Take 2 Tablets by mouth in the morning. 60 Tablet 11 03/17/2023 Active Vitron-C 65-125 MG Oral Tablet (Iron-Vitamin C 65-125 mg per tab) Take 1 Tablet by mouth in the morning. 30 Tablet 11 12/09/2022 3 Discontinu ed(Refill) Hospital, Clinic, or Other [...] as of this encounter (statuses as of 03/17/2023) Active Problems Problem Noted Date Decreased functional [...] as of this encounter (statuses as of 03/17/2023) Resolved Problems Problem Noted Date Resolved Date [...] 02/04/2006 12/21/2008 Atrial septal aneurysm 02/04/2006 9 list of first job ideas current use 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 0 06/01/2005 [...] as of this encounter (statuses as of 03/17/2023) Immunizations Name Administration Dates Next Due H1N1 [...] encounter Miscellaneous Notes * Telephone Encounter - Lucia Weaver CMA - 03/17/2023 4:33 PM EDT Spoke with patient by phone. Gave results and recommendations from Dr. Pacheco regarding recent lab work. Patient verbalized understanding and agreeable to plan of care. Requesting updated prescription for Vitron-C be sent in to [facility] on [address]. Will forward to PCP office to f/u. Patient scheduled with Dr. Alexandra 04/20/23. * Telephone Encounter - Jerry Pacheco DO - 03/13/2023 12:15 PM EDT Cardiology nursing: Please notify patient that I reviewed her recent lab work. Her hemoglobin is slightly improved compared to November, at 11.3 as compared to 10.2. Her iron levels remain low despitehaving starting Vitron C 1 tablet daily. I recommend she increases the Vitron C to 2 tablets daily. I have concerns that she is not a candidate for endoscopy given her chronic respiratory insufficiency. Recommend follow-up with primary care with regards to ongoing evaluation/treatment for anemia. Future considerations include referral to hematology for consideration of IV iron infusion. Jerry Pacheco DO documented in this encounter Plan of Treatment Upcoming Encounters Date Type Specialty Care Team Description 03/22/2023 Telemedicine Psychiatry Hugo Alcantara MD [address] [place] [address] 03/23/2023 Laboratory Laboratory Processing [facility] [place] Mobile Home Draw [address] [place] [address] 03/24/[address] [facility] [address] [facility] [place] [address] 04/20/2023 Office Visit Family Medicine Roger Alexandra MD [address] [facility] [place] [address] 2023 Imaging Radiology 06/11/2023 Telemedicine Urology Juan José Walters MD [address] [place] [address] 07/07/2023 Office Visit Cardiology Jerry Pacheco, DO [address] [place] [address] Scheduled Procedures Name Priority Associated Diagnoses Date/Ti [...] Additional history exists Lipid Panel 03/09/2028 03/09/2023, 09/15, 02/14/2015, Additional history exists Alpha-1 Antitrypsin Completed 02/16/2022 LUNG CANCER SCREENING - USE SMARTSET 51323 Completed 03/16/2022, 01/03/2017 Influenza Vaccine (FLU shot) [...] as of this encounter Visit Diagnoses Diagnosis Other iron deficiency anemia- Primary documented in this encounter Care Teams Associate Dentist Relationship Specialty Start Date End Date Roger Alexandra MD [address] [place] [address] PCP - General Family Medicine 12/29/19 documented as of this encounter
--- OUTSIDE RECORDS SUMMARY | 2023-07-25 04:15 | External Medical Summary | Summary of Care ---
Author Name Unknown Organization [facility] Address [address] [facility] [address] Phone [phone] Care Team Providers Care Meat And Seafood Clerk Name Role Phone Roger Alexandra MD Primary Care Provider [phone] Reason for Visit * Reason Comments Dosage Adjustment Via Phone (anticoag Cl inic) Encounter Details Date Type Department Care Team Description 03/24/2023 Anticoagulation Pharmacy Call Center [address] [facility] [place] [address] [facility] [address] [place] [address] termite control representative current use 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* Allergies Active Allergy Reactions Severity Noted Date Comments Aspirin Unknown 12/12/2007 von Willebrand's disease Salicylates 03/01/2000 von Willebrand's disease documented as of this encounter (statuses as of 03/24/2023) Medications Medication Sig Dispensed Refills Start Date [...] [facility]),Chronic hypoxemic respiratory failure ([facility]) Use with nebulized meds 1 Each 0 09/16/2022 Active Full Kit Nebulizer SetIndications:COPD, group D, by GOLD 2017 classification ([facility]),Chronic hypoxemic respiratory failure ([facility]) Use with nebulizer 1 Each 0 09/16/2022 [...] 02/05/2023 Active Furosemide 20 MG Oral Tablet (Lasix)Indications:C hronic diastolic CHF (congestive heart failure) ([facility]) take 1 tablet by mouth once daily if needed for LOWER LEG SWELLING 30 Tablet 1 02/16/2023 Active Nystatin 823424 UNIT/GM External Powder (Nyamyc) apply to affected area twice a day 60 g 1 03/08/2023 Active Fluticasone-Salmeter ol 115-21 MCG/ACT Inhalation Aerosol (Advair Hfa) Inhale 2 Puffs by mouth in the morning and 2 Puffs before bedtime. 12 g 12 03/09/2023 Active Baclofen 10 MG Oral Tablet (Lioresal)Indication [...] 22, 2023. 90 Tablet 1 04/22/2023 Active Hospital, Clinic, or Other Facility Administered [...] as of this encounter (statuses as of 03/24/2023) Active Problems Problem Noted Date Decreased functional [...] as of this encounter (statuses as of 03/24/2023) Resolved Problems Problem Noted Date Resolved Date [...] as of this encounter (statuses as of 03/24/2023) Immunizations Name Administration Dates Next Due H1N1 [...] as of this encounter Progress Notes * Dottie Eli RP - 03/24/2023 8:47 AM EDT Medication Therapy Disease Management - Anticoagulation Patient: Kimberly Kendall : 1960 Current Warfarin Dose As of 03/24/2023 Warfarin maintenance plan: 5 mg (5 mg x 1) every day Patient-Reported Symptoms: INR Result As of 03/24/2023 INR goal: 2.0-3.0 INR used for dosing: No new INR was available at the time of this encounter. Warfarin Plan As of 03/24/2023 Full warfarin instructions: 5 mg every day No change documented: Dottie Eli michelle Next INR check: 03/29/2023 Additional Dosing Information: Description [facility] Also sent MyG after trying to call Repeat PT/INR in 5 day(s) Weekly dose: not changed Dottie Eli [facility] Clinical Pharmacist 03/24/2023, 8:47 AM * DANIEL Solares - 03/24/2023 7:33 AM EDT Pt refused GML yesterday and per their note requested that they reschedule her to 03/29. Thank you, Xenia Sheppard Electrical Checkout Mechanic 03/24/2023,7:34 AM documented in this encounter Plan of Treatment Upcoming Encounters Date Type Specialty Care Team Description 03/29/2023 Laboratory Laboratory Processing [facility] [place], [facility] Mobile Home Draw [address] [facility] [place] [address] 04/20/2023 Office Visit Family Medicine Roger Alexandra MD [address] [place] [address] 05/24/2023 Telemedicine Psychiatry [facility]ara [facility] [address] [facility] [address] 2023 Imaging Radiology 06/11/2023 Telemedicine Urology Juan José Walters MD [address] [place] [address] 07/07/2023 Office Visit Cardiology Jerry Pacheco, DO [address] [place] [address] Scheduled Procedures Name Priority Associated Diagnoses Date/Ti [...] 02/16/2022 LUNG CANCER SCREENING - USE SMARTSET 662[address] Completed 03/16/2022, 01/03/2017 Influenza Vaccine (FLU shot) [...] as of this encounter Visit Diagnoses Diagnosis 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
--- OUTSIDE RECORDS SUMMARY | 2023-07-25 04:15 | External Medical Summary | Summary of Care ---
Author Name Unknown Organization [facility] Address [address] [facility] [address] Phone [phone] Care Team Providers Care Associate Dentist Name Role Phone Jeevan Mclean MD Primary Care Provider [phone] Reason for Visit * Reason Comments eRx-Medication Refill Encounter Details Date Type Department Care Team Description 04/04/2023 Refill Family Practice [facility] [address] [place] [address] Jeevan Mclean MD [address] [place] [address] Allergies Active Allergy Reactions Severity Noted Date Comments Aspirin Unknown 12/12/2007 von Willebrand's disease Salicylates 03/01/2000 von Willebrand's disease documented as of this encounter (statuses as of 04/05/2023) Medications Medication Sig Dispensed Refills Start Date End Date Status Warfarin Sodium 5 MG Oral Tablet (Coumadin)Indicatio ns:Paroxysmal atrial fibrillation (HCC) Take by mouth 1 Tablet in the evening. OR As directed by coumadin clinic. 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 540 mL 12 2 Active busPIRone HCl 10 MG Oral Tablet (Buspar) Take 2 Tablets by mouth in the morning and 2 Tablets before bedtime. 120 Tablet 2 3 Active Isosorbide Mononitrate ER 30 MG [...] With food.. 14 Capsule 0 3 Active Furosemide 20 MG Oral Tablet (Lasix)Indications: Chronic diastolic CHF (congestive heart failure) ([facility]) take 1 tablet by mouth once daily if needed for LOWER LEG SWELLING 30 Tablet 1 3 Active Nystatin 592601 UNIT/GM External Powder (Nyamyc) apply to affected area twice a day 60 g 1 3 Active Fluticasone-Salmete rol 115-21 MCG/ACT Inhalation [...] BEFORE BEDTIME 60 Capsule 5 3 Active Omeprazole 20 MG Oral Capsule Delayed Release (PriLOSEC) take 1 capsule by mouth IN THE MORNING and 1 capsule BEFORE BEDTIME 60 Capsule 5 2 04/05/20 23 Discontinued Hospital, Clinic, or Other Facility [...] as of this encounter (statuses as of 04/05/2023) Active Problems Problem Noted Date Decreased functional [...] as of this encounter (statuses as of 04/05/2023) Resolved Problems Problem Noted Date Resolved Date [...] as of this encounter (statuses as of 04/05/2023) Immunizations Name Administration Dates Next Due H1N1 [...] encounter Miscellaneous Notes * Telephone Encounter - Héctor Pradhan michelle - 04/05/2023 9:17 AM EDT Signed Prescriptions: Disp Refills Omeprazole 20 MG Oral Capsule Delayed Rele*60 Cap*5 Sig: take 1 capsule by mouth IN THE MORNING and 1 capsule BEFORE BEDTIMEAuthorizing Provider: JEEVAN MCLEAN User: HÉCTOR PRADHAN ----- documented in this encounter Plan of Treatment Upcoming Encounters Date Type Specialty Care Team Description 04/19/2023 Laboratory Laboratory Processing [facility] [place], [facility] Mobile Home Draw [address] [place] [address] 04/20/2023 [facility] [address] [place] [address] 04/20/2023 Office Visit Family Medicine Jeevan Mclean MD [address] [facility] [place] [address] 05/24/2023 Telemedicine Psychiatry Hugo Alcantara MD [address] [place] [address] 2023 Imaging Radiology 06/11/2023 Telemedicine Urology Juan José Walters MD [address] [place] [address] 07/07/2023 Office Visit Cardiology Jerry Pacheco, DO [address] [place] [address] Scheduled Procedures Name Priority Associated Diagnoses Date/Ti [...] 02/16/2022 LUNG CANCER SCREENING - USE SMARTSET 97015 Completed 03/16/2022, 01/03/2017 Influenza Vaccine (FLU shot) [...] filedocumented as of this encounter Care Teams Associate Dentist Relationship Specialty Start Date End Date Jeevan Mclean MD [address] [place] [address] PCP - General Family Medicine 12/29/19 documented as of this encounter
--- OUTSIDE RECORDS SUMMARY | 2023-07-25 04:15 | External Medical Summary ---
Author Name Unknown Address Unknown Organization [facility] [address] [place] [address] Laboratory Report Ordering Provider Test Date Status SUMAN STANFORD 03/29/2023 09:47:00 Final Observation Date Value Abnormality Reference (Units ) Status PT 03/29/2023 09:47:00 26.9 Above high normal 11 .6-15.2 (seconds) Final INR 03/29/2023 09:47:00 2.5 Above high normal 0. 8-1.2 Final Performing Location [facility] [place] [address] [place] [address]
--- OUTSIDE RECORDS SUMMARY | 2023-07-25 04:15 | External Medical Summary | Summary of Care ---
Author Name Unknown Organization [facility] Address [address] [facility] [address] Phone [phone] Care Team Providers Care Seat Nailer Name Role Phone Roger Alexandra MD Primary Care Provider [phone] [phone] Reason for Visit * Reason Onset Date Comments Test Results 03/13/2023 Encounter Details Date Type Department Care Team Description 03/13/2023 Telephone Cardiology, [facility] [address] [place] [address] Jerry Pacheco, [address] [place] [address] Test Results Allergies Active Allergy Reactions Severity Noted Date Comments Aspirin Unknown 12/12/2007 von Willebrand's disease Salicylates 03/01/2000 von Willebrand's disease documented as of this encounter (statuses as of 03/18/2023) Medications Medication Sig Dispensed Refills Start Date End Date Status Warfarin Sodium 5 MG Oral Tablet (Coumadin)Indicatio ns:Paroxysmal atrial fibrillation (HCC) Take by mouth 1 Tablet in the evening. OR As directed by coumadin clinic. 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),COPD, group D, [...] D, by GOLD 2017 classification ([facility]),Chronic hypoxemic respiratory failure ([facility]) Use with nebulized meds 1 Each 0 09/16/2022 Active Full Kit Nebulizer SetIndications:COPD , group D, by GOLD 2017 classification ([facility]),Chronic hypoxemic respiratory failure ([facility]) Use with nebulizer 1 Each 0 09/16/2022 [...] (Lasix)Indications: Chronic diastolic CHF (congestive heart failure) ([facility]) take 1 tablet by mouth once daily if needed for LOWER LEG SWELLING 30 Tablet 1 02/16/2023 Active LORazepam 0.5 MG Oral Tablet (Ativan) Take 1 Tablet by mouth every 8 hours as needed for Anxiety. 90 Tablet 1 02/24/2023 Active Nystatin 135200 UNIT/GM External Powder (Nyamyc) apply to affected [...] D, by GOLD 2017 classification ([facility]) 2.5 mg NEBULIZER PRN 03/03/2023 03/02/2024 Acti ve Albuterol Sulfate (Proventil) (5 MG/ML) 0.5% *conc* inhalation solution 2.5 mgIndications:COPD, group D, by GOLD 2017 classification ([facility]) 2.5 mg NEBULIZER PRN 03/03/2023 03/02/2024 Acti ve documented as of this encounter (statuses as of 03/18/2023) Active Problems Problem Noted Date Decreased functional [...] as of this encounter (statuses as of 03/18/2023) Resolved Problems Problem Noted Date Resolved Date [...] 02/04/2006 12/21/2008 Atrial septal aneurysm 02/04/2006 9 termination clerk current use 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 0 [...] as of this encounter (statuses as of 03/18/2023) Immunizations Name Administration Dates Next Due H1N1 [...] encounter Miscellaneous Notes * Telephone Encounter - Jerry Pacheco DO - 03/18/2023 12:46 PM EDT Update noted. It looks like Dr Alexandra signed order for the new Vitron-C dose yesterday. Jerry Pacheco DO * Telephone Encounter - Lucia Weaver CMA - 03/17/2023 4:33 PM EDT Spoke with patient by phone. Gave results and recommendations from Dr. Pacheco regarding recent lab work. Patient verbalized understanding and agreeable to plan of care. Requesting updated prescription for Vitron-C be sent in to [facility] on [address]. Will forward to PCP office to f/u. [...] Telemedicine Psychiatry Hugo Alcantara MD [address] [place] [address] 03/23/2023 Laboratory Laboratory Processing [facility] [place] Draw [address] [place] [address] 03/24/2023 [facility] [address] [facility] [place] [address] 04/20/2023 Office Visit Family Medicine Roger Alexandra MD [address] [place] [address] 2023 Imaging Radiology 06/11/2023 Telemedicine Urology Juan José Walters MD [address] [place] [address] 07/07/2023 Office Visit Cardiology Jerry Pacheco DO [address] [place] [address] Scheduled Procedures Name Priority Associated Diagnoses Date/Ti [...] 02/16/2022 LUNG CANCER SCREENING - USE SMARTSET 75396 Completed 03/16/2022, 01/03/2017 Influenza Vaccine (FLU shot) [...] Primary documented in this encounter Care Teams Seat Nailer Relationship Specialty Start Date End Date Roger Alexandra MD [address] [place] [address] PCP - General Family Medicine 12/29/19 documented as of this encounter
--- OUTSIDE RECORDS SUMMARY | 2023-07-25 04:15 | External Medical Summary | Summary of Care ---
Author Name Unknown Organization [facility] Address [address] [facility] [place] [address] Phone [phone] Care Team Providers Care Hotel Office Manager Name Role Phone Roger Alexandra MD Primary Care Provider [phone] Reason for Visit * Reason Onset Date Comments Medication Refill 04/12/2023 Encounter Details Date Type Department Care Team Description 04/12/2023 Refill [facility] [address] [place] [address] Roger Alexandra MD [address] [place] [id number] Allergies Active Allergy Reactions Severity Noted Date [...] 90 Tablet 3 02/16/2022 Active oxygen IN GASIndications: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 (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),COPD, group D, [...] OPD, group D, by GOLD 2017 classification ([facility]),Chronic hypoxemic respiratory failure ([facility]) Use with nebulized meds 1 Each 0 09/16/2022 Active Full Kit Nebulizer SetIndications:COPD , group D, by GOLD 2017 classification ([facility]),Chronic hypoxemic respiratory failure ([facility]) Use with nebulizer 1 Each [...] (Lasix)Indications: Chronic diastolic CHF (congestive heart failure) ([facility]) take 1 tablet by mouth once daily if needed for LOWER LEG SWELLING 30 Tablet 1 02/16/2023 Active Fluticasone-Salmete rol 115-21 MCG/ACT Inhalation Aerosol [...] before bedtime. 120 Tablet 2 04/07/2023 Active Nystatin 280345 UNIT/GM External Powder (Nyamyc) apply to affected area twice a day 60 g 1 04/13/2023 Active Nystatin 288472 UNIT/GM External Powder (Nyamyc) apply to affected area twice a day 60 g 1 03/08/2023 3 Discontinu ed(Refill) Hospital, Clinic, or Other Facility Administered Medication Ordered Dose Route Frequency Start Date End Date Status Albuterol Sulfate (Proventil) (2.5 MG/3ML) 0.083% inhalation solution 2.5 mgIndications:COPD, group D, by GOLD 2017 classification ([facility]) 2.5 mg NEBULIZER PRN 03/03/2023 03/02/2024 Acti ve Albuterol Sulfate (Proventil) (5 MG/ML) 0.5% *conc* inhalation solution 2.5 mgIndications:COPD, group D, by GOLD 2017 classification ([facility]) 2.5 mg NEBULIZER PRN 03/03/2023 [...] encounter Miscellaneous Notes * Telephone Encounter - Pete Brooks DO - 04/13/2023 12:25 PM EDT Signed Prescriptions: Disp Refills Nystatin 492501 UNIT/GM External Powder (N*60 g 1 Sig: apply to affected area twice a day Authorizing Provider: PETE BROOKS * Telephone Encounter - Corrie Sam LPN - 04/13/2023 8:16 AM EDTPending Prescriptions: Disp Refills Nystatin 401308 UNIT/GM External Powder (N*60 g 1 Sig: apply to affected area twice a day * Telephone Encounter - Corrie Sam LPN - 04/13/2023 8:15 AM EDT Did you pend patient's preferred pharmacy and medication before forwarding?yes [facility]acy: [facility] #[id number] Pending Prescriptions: Disp Refills Nystatin 131858 UNIT/GM External Powder (*60 g 1 Sig: apply to affected area twice a day Last Visit: 09/30/2022 (in office), 12/16/2022 (telemedicine) Next Visit: 04/20/2023 If no future appointments scheduled, and last appointment is greater than a year ago, please schedule patient for a follow-up appointment Last date the medication was ordered: 03/08/2023 Is this request for a controlled substance?No [...] 04/19/2014 12:08 PM * [facility] En[facility] - [facility] - 04/12/2023 1:54 PM EDTPending Prescriptions: Disp Refills Nystatin 138432 UNIT/GM External Powder (N*60 g 1 Sig: apply toaffected area twice a day documented in this encounter Plan of Treatment Upcoming Encounters Date Type Specialty Care Team Description 04/15/2023 Home Visit Family Medicine Félix Otero, Community Health Irrigation Worker [address] [place] [address] 04/19/2023 Laboratory Laboratory Processing [facility] Mobile Home Draw [address] [place] [address] 04/20/2023 [facility] [address] [place] [address] 04/20/2023 Office Visit Family Medicine Roger Alexandra MD [address] [facility] [place] [address] 05/24/2023 Telemedicine Psychiatry Hugo Alcantara MD [address] [place] [address] 2023 Imaging Radiology 07/07/2023 Office Visit Cardiology Jerry Pacheco DO [address] [place] [address] Scheduled Procedures Name Priority Associated Diagnoses Date/Ti [...] 02/16/2022 LUNG CANCER SCREENING - USE SMARTSET 11134 Completed 03/16/2022, 08/24/2018, 01/03/2017 Influenza Vaccine (FLU [...] filedocumented as of this encounter Care Teams Hotel Office Manager Relationship Specialty Start Date End Date Roger Alexandra MD [address] [place] [address] PCP - General Family Medicine 12/29/19 documented as of this encounter
--- OUTSIDE RECORDS SUMMARY | 2023-07-25 04:15 | External Medical Summary | Summary of Care ---
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*; Cerebrovascular disease, arteriosclerotic, post-stroke Allergies Active Allergy Reactions Severity Noted Date Comments Aspirin Unknown 12/12/2007 von Willebrand's disease Salicylates 03/01/2000 von Willebrand's disease documented as of this encounter (statuses as of 03/30/2023) Medications Medication Sig Dispensed Refills Start Date [...] PD, group D, by GOLD 2017 classification ([facility]),Chronic hypoxemic respiratory failure ([facility]) Use with nebulized meds 1 Each 0 09/16/2022 Active Full Kit Nebulizer SetIndications:COPD, group D, by GOLD 2017 classification ([facility]),Chronic hypoxemic respiratory failure ([facility]) Use with nebulizer 1 Each [...] (Lasix)Indications:C hronic diastolic CHF (congestive heart failure) ([facility]) take 1 tablet by mouth once daily if needed for LOWER LEG SWELLING 30 Tablet 1 02/16/2023 Active Nystatin 937159 UNIT/GM External Powder (Nyamyc) apply to affected [...] mgIndications:COPD, group D, by GOLD 2017 classification ([facility]) 2.5 mg NEBULIZER PRN 03/03/2023 03/02/2024 Acti ve documented as of this encounter (statuses as of 03/30/2023) Active Problems Problem Noted Date Decreased functional [...] as of this encounter (statuses as of 03/30/2023) Resolved Problems Problem Noted Date Resolved Date [...] as of this encounter (statuses as of 03/30/2023) Immunizations Name Administration Dates Next Due H1N1 [...] of this encounter Progress Notes * DANIEL Solares - 03/30/2023 9:19 AM EDT Contacts Type Contact Phone/Fax 03/30/2023 09:17 AM EDT Phone (Outgoing) Kimberly Kendall (Self) [phone] (M) Patient Findings Negatives: Signs/symptoms of bleeding, Change in health, Change in activity, Upcoming invasive procedure, Missed doses, Extra doses, Change in medications, Change in diet/appetite, Bruising Advised patient to contact Anticoagulation Clinic if any unusual bruising or bleeding, recent illness, changes in medication, or questions/concerns. PT/INR results, Coumadin dose instructions, and next PT/INR date communicated as noted by Pharmacist: Yes DANIEL Solares 03/30/2023, 9:19 AM * Kim Mercado RPh - 03/30/2023 8:47 AM EDT Coumadin Clinic (region specific) Current Warfarin Dose As of 03/30/2023 Warfarin maintenance plan: 5 mg (5 mg x 1) every day INR Result As of 03/30/2023 INR goal: 2.0-3.0 INR used for dosin.5 (03/29/2023) Warfarin Plan As of 03/30/2023 Full warfarin instructions: 5 mg every day No change documented: Kim Mercado RPh Next INR check: 04/19/2023 Repeat PT/INR in 3 week(s) Weekly dose: not changed Additional Dosing Information: Description [facility] Also sent MyG after trying to call [employer] to contact patient with dose instructions as noted. Kim Mercado RPh 03/30/2023, 8:48 AM documented in this encounter Plan of Treatment Upcoming Encounters Date Type Specialty Care Team Description 04/20/2023 [facility] [address] [place] [address] 04/20/2023 Office Visit Family Medicine Roger Alexandra MD [address] [place] [address] 05/24/2023 Telemedicine Psychiatry Hugo Alcantara MD [address] [place] [facility] [place] [address] 2023 Imaging Radiology 06/11/2023 Telemedicine Urology Juan José Walters MD [address] [place] [address] 07/07/2023 Office Visit Cardiology Jerry Pacheco DO [address] [place] [address] Scheduled Procedures Name Priority Associated Diagnoses Date/Ti [...] 02/16/2022 LUNG CANCER SCREENING - USE SMARTSET 24606 Completed 03/16/2022, 01/03/2017 Influenza Vaccine (FLU shot) [...] as of this encounter Visit Diagnoses Diagnosis 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
--- OUTSIDE RECORDS SUMMARY | 2023-07-25 04:15 | External Medical Summary ---
Author Name Unknown Address Unknown Organization [id number][facility] [address] [place] [address] Laboratory Report Ordering Provider Test Date Status SUMAN STANFORD 03/16/2023 10:42:00 Final Observation Date Value Abnormality Reference (Units ) Status PT 03/16/2023 10:42:00 25.8 Above high normal 11 .6-15.2 (seconds) Final INR 03/16/2023 10:42:00 2.3 Above high normal 0. 8-1.2 Final Performing Location [facility] [place] [address] [place] [address]
--- OUTSIDE RECORDS SUMMARY | 2023-07-25 04:15 | External Medical Summary | Summary of Care ---
Author Name Unknown Organization [facility] Address [address] [place] [address] Phone [phone] Care Team Providers Care Food Critic Name Role Phone Roger Alexandra MD Primary Care Provider [phone] [phone] Reason for Visit * Reason Onset Date Comments Medication Refill 03/17/2023 Encounter Details Date Type Department Care Team Description 03/17/2023 Refill Psychiatry, [facility] [address] [place] [address] Hugo Alcantara MD [address] [place] [address] Allergies Active Allergy Reactions Severity [...] 90 Tablet 3 02/16/2022 Active oxygen IN GASIndications:Breaker Off 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 respiratory failure (HCC),COPD, group D, [...] OPD, group D, by GOLD 2017 classification ([facility]),Chronic hypoxemic respiratory failure ([facility]) Use with nebulized meds 1 Each 0 09/16/2022 Active Full Kit Nebulizer SetIndications:COPD , group D, by GOLD 2017 classification ([facility]),Chronic hypoxemic respiratory failure ([facility]) Use with nebulizer 1 Each [...] of Breath. 540 mL 12 10/23/2022 Active Vitron-C 65-125 MG Oral Tablet (Iron-Vitamin C 65-125 mg per tab) Take 1 Tablet by mouth in the morning. 30 Tablet 11 12/09/2022 Active busPIRone HCl 10 MG Oral Tablet [...] LEG SWELLING 30 Tablet 1 02/16/2023 Active traMADol HCl 50 MG Oral Tablet (Ultram)Indications :Chronic bilateral low back pain without sciatica Take 2 Tablets by mouth every 8 hours as needed for Pain, Moderate. 180 Tablet 0 02/17/2023 Active LORazepam 0.5 MG Oral Tablet (Ativan) Take 1 Tablet by mouth every 8 hours as needed for Anxiety. 90 Tablet 1 02/24/2023 Active Nystatin 476515 UNIT/GM External Powder (Nyamyc) apply to affected [...] at bedtime. 45 Tablet 2 03/17/2023 Active Mirtazapine 30 MG Oral Tablet (Remeron) Take 1.5 Tablets by mouth at bedtime. 45 Tablet 2 12/16/2022 3 Discontinu ed(Refill) Hospital, Clinic, or Other Facility Administered Medication Ordered Dose Route Frequency Start Date End Date Status Albuterol Sulfate (Proventil) (2.5 MG/3ML) 0.083% inhalation solution 2.5 mgIndications:COPD, group D, by GOLD 2017 classification ([facility]) 2.5 mg NEBULIZER PRN 03/03/2023 03/02/2024 Acti ve Albuterol Sulfate (Proventil) (5 MG/ML) 0.5% *conc* inhalation solution 2.5 mgIndications:COPD, group D, by GOLD 2017 classification ([facility]) 2.5 mg NEBULIZER PRN 03/03/2023 [...] 02/04/2006 12/21/2008 Atrial septal aneurysm 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 Authorizing Provider: HUGO ALCANTARA * Telephone Encounter - Saray Ann LPN - 03/17/2023 8:01 AM EDT Patient calling for refill on Remeron. Medication was last filled on 12/16/22 with 2 refills. Patientlast seen on 12/16/22 with return appointment scheduled for 03/22/2023. Patient had 1 cancelled appointments and 1 NO SHOW appointments. documented in this encounter Plan of Treatment Upcoming Encounters Date Type Specialty Care Team Description 03/22/2023 Telemedicine Psychiatry Hugo Alcantara MD [address] [place] [address] 03/23/2023 Laboratory Laboratory Processing [facility], [facility] Mobile Home Draw [address] [place] [address] 03/24/2023 [facility] [place] [place] [address] [facility] [place] [address] 04/20/2023 Office Visit Family Medicine Roger Alexandra MD [address] [place] [address] 2023 Imaging Radiology 06/11/2023 Telemedicine Urology Juan José Walters MD [address] [place] [address] 07/07/2023 Office Visit Cardiology Jerry Pacheco DO [address] [place] [address] Scheduled Procedures Name Priority Associated Diagnoses Date/Ti [...] 02/16/2022 LUNG CANCER SCREENING - USE SMARTSET 07475 Completed 03/16/2022, 01/03/2017 Influenza Vaccine (FLU shot) [...] filedocumented as of this encounter Care Teams Food Critic Relationship Specialty Start Date End Date Roger Alexandra MD [address] [place] [address] PCP - General Family Medicine 12/29/19 documented as of this encounter
--- OUTSIDE RECORDS SUMMARY | 2023-07-25 04:15 | External Medical Summary | Summary of Care ---
Author Name Unknown Organization [facility] Address [address] [place] [address] Phone [phone] Care Team Providers Care Geophysical Operator Name Role Phone Jeevan Mclean MD Primary Care Provider [phone] Reason for Referral * Medication Prior Authorization - Pending Review Specialty Diagnoses / Procedures Referred By Anna t Referred To Contact Diagnoses Chronic bilateral low back pain without sciatica Jeevan Mclean MD [address] [place] [address] Referral ID Status Reason Start Date Expiration Date V isits Requested Visits Authorized [id number] Pending Review 999 999 Reason for Visit * Reason Onset Date Comments Medication Refill 03/16/2023 Encounter Details Date Type Department Care Team Description 03/16/[address] 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 90 Tablet 1 02/24/2023 Active Nystatin 369618 UNIT/GM External Powder (Nyamyc) apply to affected [...] Pain, Moderate. 180 Tablet 0 03/17/2023 Active traMADol HCl 50 MG Oral Tablet (Ultram)Indications :Chronic bilateral low back pain without sciatica Take 2 Tablets by mouth every 8 hours as needed for Pain, Moderate. 180 Tablet 0 02/17/2023 3 Discontinu ed(Refill) Hospital, Clinic, or Other [...] Telephone Encounter - Jeevan Mclean MD - 03/17/2023 9:00 AM EDTSigned Prescriptions: Disp Refills traMADol HCl 50 MG Oral Tablet (Ultram) 180 Ta*0 Sig: Take 2 Tablets by mouth every 8 hours as needed for Pain, Moderate. Authorizing Provider: JEEVAN MCLEAN * Telephone Encounter - Shikha Cobian, [facility] - 03/17/2023 8:41 AM EDTPending Prescriptions: Disp Refills traMADol HCl 50 MG Oral Tablet (Ultram) 180 Ta*0 Sig: Take 2 Tablets by mouth every 8 hours as needed for Pain, Moderate. * Telephone Encounter - Shikha Cobian RPh - 03/17/2023 8:40 AM EDT I have reviewed the patients controlled substance dispensing history in the Prescription Drug Monitoring Program in compliance with the [facility] regulations before prescribing a controlled substance. PDMP checked on 03/17/2023. Pending Prescriptions: Disp Refills traMADol HCl 50 MG Oral Tablet (Ultram) 180 Ta*0 Sig: Take 2 Tablets by mouth every 8 hours as needed for Pain, Moderate. Last Visit: 09/30/2022 (in office), 12/16/2022 (telemedicine) Next Visit: 04/20/2023 Date medication was last filled: 02/18/23 Date medication is due for refill: 03/19/23 [facility]: [facility] #[id number] Is this request for a controlled substance? Yes and Urine Drug Screen Not completed Toxicology results: No results found. However, due to the size of the patient record, not all encounters were searched.Please check Results Review for a complete set of results. Please approve if appropriate. Thank you, Shikha Cobian, PharmD Staff Pharmacist Refill Call Center [phone] 03/17/2023, 8:40 AM documented in this encounter Plan of Treatment Upcoming Encounters Date Type Specialty Care Team Description 03/22/2023 Telemedicine Psychiatry Hugo Alcantara MD [address] [place] [address] 03/23/2023 Laboratory Laboratory Processing [facility], [facility] Mobile Home Draw [address] [place] [address] 03/24/2023 [facility] [address] [address] [place] [address] 04/20/2023 Office Visit Family Medicine Jeevan Mclean MD [address] [place] [address] 2023 Imaging Radiology 06/11/2023 Telemedicine Urology Juan José Walters MD [address] [place] [address] 07/07/2023 Office Visit Cardiology Jerry Pacheco, [address] [place] [address] Scheduled Procedures Name Priority Associated Diagnoses Date/Ti [...] 02/16/2022 LUNG CANCER SCREENING - USE SMARTSET 23097 Completed 03/16/2022, 01/03/2017 Influenza Vaccine (FLU shot) [...] sciatica documented in this encounter Care Teams Geophysical Operator Relationship Specialty Start Date End Date Jeevan Mclean MD [address] [place] [address] PCP - General Family Medicine 12/29/19 documented as of this encounter
--- OUTSIDE RECORDS SUMMARY | 2023-07-25 04:15 | External Medical Summary | Summary of Care ---
Author Name Unknown Organization [facility] Address [address] [place] [address] Phone [phone] Care Team Providers Care Plasterer Stucco Name Role Phone Roger Alexandra MD Primary Care Provider [phone] Encounter Details Date Type Department Care Team Description 04/08/2023 Driver License Reviewing OfficerContact Printer Dry Film [facility] [address] [facility] [place] [id number] Yara Morris, RN Medical home patient encounter* Allergies Active Allergy Reactions Severity Noted Date Comments Aspirin Unknown 12/12/2007 von Willebrand's disease Salicylates 03/01/2000 von Willebrand's disease documented as of this encounter (statuses as of 04/08/2023) Medications Medication Sig Dispensed Refills Start Date [...] (Lasix)Indications:C hronic diastolic CHF (congestive heart failure) ([facility]) take 1 tablet by mouth once daily if needed for LOWER LEG SWELLING 30 Tablet 1 02/16/2023 Active Nystatin 650743 UNIT/GM External Powder (Nyamyc) apply to affected [...] as of this encounter (statuses as of 04/08/2023) Active Problems Problem Noted Date Decreased functional [...] as of this encounter (statuses as of 04/08/2023) Resolved Problems Problem Noted Date Resolved Date [...] as of this encounter (statuses as of 04/08/2023) Immunizations Name Administration Dates Next Due H1N1 [...] Progress Notes * Yara Morris RN - 04/08/2023 1:25 PM EDT Patient called in, upset. She needs help finding different housing, states she can no longer affordto pay her current rent. Offered [facility], she sees Dr. Alcantara but no counseling for anxiety. Will place [facility] referral for home visit to do vital check, also check [facility] scale as readings have not been transmitting. Please also provide guidance on applying for possible housing assistance. She is also c/o pain and pressure in lower abdomen/bladder. She feels that she has a uti. Message to Dr. Romeo Webb who was able to place order for UA. Printed and faxed order to [facility] home health. documented in this encounter Plan of Treatment Upcoming Encounters Date Type Specialty Care Team Description 04/15/2023 Home Visit Family Medicine Félix Otero, Community Health Abstracter [address] [place] [address] 04/19/2023 Laboratory Laboratory Processing [facility], [facility] Mobile Home Draw [address] [place] [address] 04/20/2023 [facility] [address] [place] [address] 04/20/2023 Office Visit Family Medicine [facility] Alexandra [facility] [address] [facility] [address] 05/24/2023 Telemedicine Psychiatry Hugo Alcantara MD [address] [place] [address] 2023 Imaging Radiology 07/07/2023 Office Visit Cardiology Jerry Pacheco DO [address] [place] [address] Scheduled Procedures Name Priority Associated Diagnoses Date/Ti [...] 02/16/2022 LUNG CANCER SCREENING - USE SMARTSET 99696 Completed 03/16/2022, 01/03/2017 Influenza Vaccine (FLU shot) [...] examination documented in this encounter Care Teams Plasterer Stucco Relationship Specialty Start Date End Date Roger Alexandra MD [address] [place] [address] PCP - General Family Medicine 12/29/19 documented as of this encounter
--- OUTSIDE RECORDS SUMMARY | 2023-07-25 04:15 | External Medical Summary | Summary of Care ---
Author Name Unknown Organization [facility] Address [address] [facility] [address] Phone [phone] Care Team Providers Care Structures Assembler Name Role Phone Roger Alexandra MD Primary Care Provider [phone] Reason for Visit * Reason Comments Dosage Adjustment Via Phone (anticoag Cl inic) Encounter Details Date Type Department Care Team Description 03/17/2023 Anticoagulation Pharmacy Call Center [address] 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 PT/INR results, Coumadin dose instructions, and next PT/INR date communicated as noted by Pharmacist: Yes DANIEL Bello Tech 03/17/2023, 8:33 AM * Piedad Craft RPh - 03/17/2023 8:13 AM EDT Coumadin Clinic (region specific) Current Warfarin Dose As of 03/17/2023 Warfarin maintenance plan: 5 mg (5 mg x 1) every day INR Result As of 03/17/2023 INR goal: 2.0-3.0 INR used for dosin.3 (03/16/2023) Warfarin Plan As of 03/17/2023 Full warfarin instructions: 5 mg every day No change documented: Piedad Craft RPh Next INR check: 03/23/2023 I sent MyG Repeat PT/INR in 1 week(s) Weekly dose: not changed Additional Dosing Information: Description GML Also sent MyG after trying to call Tech to contact patient with dose instructions as noted. Piedad Craft RPh 03/17/2023, 8:14 AM documented in this encounter Plan of Treatment Upcoming Encounters Date Type Specialty Care Team Description 03/22/2023 Telemedicine Psychiatry Hugo Alcantara MD [address] [place] [address] 03/23/2023 Laboratory Laboratory Processing [facility] [place] [facility] Draw [address] [place], [place] [id number] 03/24/2023 [facility] [address] [place] [address] 04/20/2023 Office Visit Family Medicine Roger Alexandra MD [address] [place] [address] 2023 Imaging Radiology 06/11/2023 Telemedicine Urology Juan José Walters MD [address] [place] [address] 07/07/2023 Office Visit Cardiology Jerry Pacheco DO [address] [place] [address] Scheduled Procedures Name Priority Associated Diagnoses Date/Ti [...] 02/16/2022 LUNG CANCER SCREENING - USE SMARTSET 50425 Completed 03/16/2022, 01/03/2017 Influenza Vaccine (FLU shot) [...] monitoring documented in this encounter Care Teams Structures Assembler Relationship Specialty Start Date End Date Roger Alexandra MD [address] [place] [address] PCP - General Family Medicine 12/29/19 documented as of this encounter
--- OUTSIDE RECORDS SUMMARY | 2023-07-25 04:15 | External Medical Summary | Summary of Care ---
Author Name Unknown Organization [facility] Address [address] [place] [address] Phone [phone] Care Team Providers Care Fishing Rod Marker Name Role Phone Roger Alexandra MD Primary Care Provider [phone] Encounter Details Date Type Department Care Team Description 04/08/2023 Orders Only Urology, [facility] [address] [facility] [place] [address] Juan José Walters MD [address] [place] [address] Dysuria* Allergies Active Allergy Reactions Severity [...] PD, group D, by GOLD 2017 classification ([facility]),Chronic hypoxemic respiratory failure ([facility]) Use with nebulized meds 1 Each 0 09/16/2022 Active Full Kit Nebulizer SetIndications:COPD, group D, by GOLD 2017 classification ([facility] [...] (Lasix)Indications:C hronic diastolic CHF (congestive heart failure) ([facility]) take 1 tablet by mouth once daily if needed for LOWER LEG SWELLING 30 Tablet 1 02/16/2023 Active Nystatin 032584 UNIT/GM External Powder (Nyamy) apply to affected area twice a day [...] addiction 10/04/2014 12/19/2021 MEDICATION USE AGREEMENT 01/29/2014 02/14/2 020 ADVANCE DIRECTIVE INFORMATION 09/13/2013 Overview: No, [...] as of this encounter Progress Notes * Tracey Cabrear LPN - 04/08/2023 1:51 PM EDT Urine culture order requested for bladder pain and pressure. documented in this encounter Plan of Treatment Upcoming Encounters Date Type Specialty Care Team Description 04/19/2023 Laboratory Laboratory Processing [facility] [place] Mobile Home Draw [address] [place] [address] 04/20/2023 [facility] [address] [place] [address] 04/20/2023 Office Visit Family Medicine Roger Alexandra MD [address] [place] [address] 05/24/2023 Telemedicine Psychiatry Hugo Alcantara MD [address] [place] [address] 2023 Imaging Radiology 07/07/2023 Office Visit Cardiology Jerry Pacheco DO [address] [place] [address] Scheduled Orders Name Type Priority Associated Diagnoses Orde r Schedule CULTURE, URINE, QUANTITATIVE Lab Routine Dysuria Expected: 04/08/2023, Expires: 04/08/2024 Scheduled Procedures Name Priority Associated Diagnoses Date/Ti [...] 02/16/2022 LUNG CANCER SCREENING - USE SMARTSET 20563 Completed 03/16/2022, 01/03/2017 Influenza Vaccine (FLU shot) [...] Primary documented in this encounter Care Teams Fishing Rod Marker Relationship Specialty Start Date End Date Roger Alexandra MD [address] [place] [address] PCP - General Family Medicine 12/29/19 documented as of this encounter
--- OUTSIDE RECORDS SUMMARY | 2023-07-25 04:15 | External Medical Summary | Summary of Care ---
Author Name Unknown Organization [facility] Address [address] [facility] [address] Phone [phone] Care Team Providers Care Structural Iron Erector Name Role Phone Roger Alexandra MD Primary Care Provider [phone] Reason for Visit * Reason Onset Date Comments Medication Refill 03/18/2023 Encounter Details Date Type Department Care Team Description 03/18/2023 Refill Pulmonary Medicine, [facility] [address] [place] [address] Juan Pulido MD [address] [facility] [place] [id number] Allergies Active Allergy Reactions Severity Noted Date [...] 90 Tablet 3 02/16/2022 Active oxygen IN GASIndications: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 90 Tablet 1 02/24/2023 Active Nystatin 347218 UNIT/GM External Powder (Nyamyc) apply to affected [...] wheezing. J44.9 90 mL 3 03/18/2023 Active Ipratropium-Albuter ol 0.5-2.5 (3) MG/3ML Inhalation Solution (Duoneb) Inhale 3 mL by mouth every 6 hours as needed for Wheezing. 90 mL 3 03/09/2023 Discontinu ed(Refill) Hospital, Clinic, or Other Facility [...] encounter Miscellaneous Notes * Telephone Encounter - Juan Pulido MD - 03/18/2023 5:04 PM EDT Signed Prescriptions: Disp Refills Ipratropium-Albuterol 0.5-2.5 (3) MG/3ML I*90 mL 3 Sig: Inhale 3ML by mouth every 6 hours as needed for wheezing. J44.9Authorizing Provider: JUAN PULIDO documented in this encounter Plan of Treatment Upcoming Encounters Date Type Specialty Care Team Description 03/22/2023 Telemedicine Psychiatry Hugo Alcantara MD [address] [place] [address] 03/23/2023 Laboratory Laboratory Processing [facility] [place] Mobile Home Draw [address] [place] [address] 03/24/2023 [facility] [address] [place] [address] 04/20/2023 Office Visit Family Medicine Roger Alexandra MD [address] [place] [address] 2023 Imaging Radiology 06/11/2023 Telemedicine Urology Juan José Walters MD [address] [place] [address] 07/07/2023 Office Visit Cardiology Jerry Pacheco DO [address] [place] [address] Scheduled Procedures Name Priority Associated Diagnoses Date/Ti [...] 02/16/2022 LUNG CANCER SCREENING - USE SMARTSET 23072 Completed 03/16/2022, 01/03/2017 Influenza Vaccine (FLU shot) [...] filedocumented as of this encounter Care Teams Structural Iron Erector Relationship Specialty Start Date End Date Roger Alexandra MD [address] [place] [address] PCP - General Family Medicine 12/29/19 documented as of this encounter
--- OUTSIDE RECORDS SUMMARY | 2023-07-25 04:15 | External Medical Summary | Summary of Care ---
Author Name Unknown Organization [facility] Address [address] [place] [address] Phone [phone] Care Team Providers Care Full Roll Inspector Name Role Phone Roger Alexandra MD Primary Care Provider [phone] Reason for Visit * - Authorized Specialty Diagnoses / Procedures Referred By Contac t Referred To Contact Referral ID Status Reason Start Date Expiration Date V isits Requested Visits Authorized [id number] Authorized 06/15/2022 06/14/2023 999 [id number] Encounter Details Date Type Department Care Team Description 03/22/2023 Telemedicine Psychiatry, [facility] [address] [place] [address] Hugo Alcantara MD [address] [place] [address] SIMA (generalized anxiety disorder)* Allergies Active Allergy Reactions Severity Noted Date Comments Aspirin Unknown 12/12/2007 von Willebrand's disease Salicylates 03/01/2000 von Willebrand's disease documented as of this encounter (statuses as of 03/23/2023) Medications Medication Sig Dispensed Refills Start Date End Date Status Warfarin Sodium 5 MG Oral Tablet (Coumadin)Indicatio ns:Paroxysmal atrial fibrillation (HCC) Take by mouth 1 Tablet in the evening. OR As directed by coumadin clinic. 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 90 Tablet 1 04/22/2023 Active LORazepam 0.5 MG Oral Tablet (Ativan) Take 1 Tablet by mouth every 8 hours as needed for Anxiety. 90 Tablet 1 02/24/2023 3 Discontinu ed(Refill) Hospital, Clinic, or Other [...] as of this encounter (statuses as of 03/23/2023) Active Problems Problem Noted Date Decreased functional [...] as of this encounter (statuses as of 03/23/2023) Resolved Problems Problem Noted Date Resolved Date [...] as of this encounter (statuses as of 03/23/2023) Immunizations Name Administration Dates Next Due H1N1 [...] Progress Notes * Hugo Alcantara MD - 03/22/2023 3:36 PM EDT After connecting through [email or web address], patient was verified with two unique identifiers. 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 Methods to assure confidentiality were taken. Patient acknowledged consent and understanding of privacy and security of the Telemedicine visit. The patient agreed to participate. PSYCHOTHERAPY & MEDICATION MANAGEMENT RETURN VISIT NOTE Psychiatry, [facility] [address] [facility] [address] 08/18/2021 Kimberly Kendall CHIEF COMPLAINT: medication management INTERVAL HISTORY: she states she is nervous. Notes it feels like her heart is always racing. she states her biggest worry is not remembering her family. We discuss the dementia diagnosis. She describes feeling "scared" of this. Sleep remains impaired, states she had a hard time sleeping last night.She will sometimes wake in the middle of the night crying. Appetite is variable. Mood remains low. Discuss increasing Buspar but she voices frustration regarding this as she feels lorazepam is the only medication that helps and does not understand why it cannot be increased. Again reviewed the risks associated with this. OBJECTIVE DATA: ROS EXAM: negative except as noted above SUBSTANCE ABUSE:Unremarkable RELEVANT PAST PSYCHIATRIC, MEDICAL, FAMILY OR SOCIAL HX: recently started Aricept CURRENT MEDS: Current Outpatient Medications Medication Sig [...] 2 Puffs before bedtime. 18 g 1 Omeprazole 20 MG Oral Capsule Delayed Release (PriLOSEC) take 1 capsule by mouth IN THE MORNINGand 1 capsule BEFORE BEDTIME 60 Capsule 5 Albuterol Sulfate 0.63 MG/3ML Inhalation Nebulization Solution (Accuneb) Inhale 1 Vial (0.63 mg) via nebulizer every 4 hours as needed for Wheezing or Shortness of Breath. 540 mL 12 busPIRone HCl 10 MG Oral Tablet (Buspar) Take 2 Tablets by mouth in the morning and 2 Tablets before bedtime. 120 Tablet 2 Isosorbide Mononitrate ER 30 MG Oral Tablet [...] before bedtime. With food.. 14 Capsule 0 Furosemide 20 MG Oral Tablet (Lasix) take 1 tablet by mouth once daily if needed for LOWER LEG SWELLING 30 Tablet 1 LORazepam 0.5 MG Oral Tablet (Ativan) Take 1 Tablet by mouth every 8 hours as needed for Anxiety. 90 Tablet 1 Nystatin 776635 UNIT/GM External Powder (Nyamyc) apply to affected area twice a day 60 g 1 Fluticasone-Salmeterol 115-21 MCG/ACT Inhalation Aerosol (Advair Hfa) Inhale 2 Puffs by mouth in the morning and 2 Puffs before bedtime. 12 g 12 Baclofen 10 MG Oral Tablet (Lioresal) Take 1 Tablet by mouth 3 times a day as needed for Musclespasms. 90 Tablet 0 Donepezil HCl 5 MG Oral Tablet (Aricept) Take 1 Tablet by mouth in the morning. Take with largest meal of the day.. 30 Tablet 2 Potassium Chloride ER 10 MEQ Oral Capsule Extended Release take 1 capsule by mouth every morning and 1 capsule by mouth BEFORE BEDTIME 60 Capsule 5 traMADol HCl 50 MG Oral Tablet (Ultram) Take 2 Tablets by mouth every 8 hours as needed for Pain, Moderate. 180 Tablet 0 Mirtazapine 30 MG Oral Tablet (Remeron) Take 1.5 Tablets by mouth at bedtime. 45 Tablet 2 Vitron-C 65-125 MG Oral Tablet (Iron-Vitamin C 65-125 mg per tab) Take 2 Tablets by mouth in the morning. 60 Tablet 11 Ipratropium-Albuterol 0.5-2.5 (3) MG/3ML Inhalation Solution (Duoneb) Inhale 3 ML by mouth every 6 hours as needed for wheezing. J44.9 90 mL 3 Current Facility-Administered Medications Medication Dose Route Frequency [...] fair Judgment: fair FORMULATION: Kimberly Kendall is [id number] old female with presenting symptoms ofdepression, anxiety, [...] depressive sx, cognitive impairment, demoralization and grief. DIAGNOSIS: Major depressive disorder recurrent episode moderate Generalized Anxiety Disorder PTSD Bereavement Major vascular neurocognitive d/o TREATMENT PLAN: -- cont Remeron 45mg nightly -- cont Ativan 0.5mg TID; unable to increase further d/t multiple risks -- cont Buspar 20mg BID -- recommend therapy; referral previously placed -- ongoing neurology care RTC: 2 months [...] > 17 minutes spent on supportive psychotherapy Hugo Alcantara MD Psychiatry Attending documented in this encounter Plan of Treatment Upcoming Encounters Date Type Specialty Care Team Description 03/24/20[facility] [address] [place] [address] 04/20/2023 Office Visit Family Medicine Roger Alexandra MD [address] [facility] [place] [address] 05/24/2023 Telemedicine Psychiatry Hugo Alcantara MD [address] [facility] [address] 2023 Imaging Radiology 06/11/2023 Telemedicine Urology Juan José Walters MD [address] [facility] [address] [facility] [place] [address] 07/07/2023 Office Visit Cardiology Jerry Pacheco, DO [address] [place] [address] Scheduled Procedures Name Priority Associated Diagnoses Date/Ti [...] 02/16/2022 LUNG CANCER SCREENING - USE SMARTSET 20735 Completed 03/16/2022, 01/03/2017 Influenza Vaccine (FLU shot) [...] disorder documented in this encounter Care Teams Full Roll Inspector Relationship Specialty Start Date End Date Roger Alexandra MD [address] [place] [address] PCP - General Family Medicine 12/29/19 documented as of this encounter
--- OUTSIDE RECORDS SUMMARY | 2023-07-25 04:16 | External Medical Summary | Summary of Care ---
Author Name Unknown Organization [facility] Address [address] [place] [address] Phone [phone] Care Team Providers Care Physical Therapy Aide Name Role Phone Roger Alexandra MD Primary Care Provider [phone] Reason for Visit * Reason Comments Follow Up Encounter Details Date Type Department Care Team Description 03/09/2023 Office Visit Pulmonary Medicine, [facility] [address] [place] [address] [facility]intero [facility] [address] [facility] [address] COPD, group D, by GOLD 2017 classification ([facility])*; Obstructive sleep apnea; Chronic hypoxemic respiratory failure (HCC); Chronic diastolic CHF (congestive heart failure) (HCC) Allergies Active Allergy Reactions Severity Noted Date Comments Aspirin Unknown 12/12/2007 von Willebrand's disease Salicylates 03/01/2000 von Willebrand's disease documented as of this encounter (statuses as of 03/09/2023) Medications Medication Sig Dispensed Refills Start Date End Date Status Warfarin Sodium 5 MG Oral Tablet (Coumadin)Indicatio ns:Paroxysmal atrial fibrillation (HCC) Take by mouth 1 Tablet in the evening. OR As directed by coumadin clinic. 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 1 Each 0 2022 Active Additional Information Patient taking differently: Use 4 LPM at rest, 5 LPM with exertion and 4 LPM with sleep., Reported on 12/16/2022 Disposable Brief X-LargeIndications: Overactive bladder Attends X-Large Super Absorb Underwear 32 Each 2 09/08/2022 Active Nebulizer DeviceIndications:C OPD, group D, by GOLD 2017 classification ([facility]),Chronic hypoxemic respiratory failure ([facility]) Use with nebulized meds 1 Each 0 09/16/2022 Active Full Kit Nebulizer SetIndications:COPD , group D, by GOLD 2017 classification ([facility]),Chronic hypoxemic respiratory failure ([facility]) Use with nebulizer 1 Each 0 09/16/2022 Active ProAir HFA 108 (90 Base) MCG/ACT Inhalation Aerosol SolutionIndications :Bronchitis, complicated Inhale 2 Puffs by mouth in the morning and 2 Puffs at noon and 2 Puffs in the evening and 2 Puffs before bedtime. 18 g 1 09/29/2022 Active Potassium Chloride ER 10 MEQ Oral Capsule Extended Release Take 1 Capsule (10 mEq) by mouth in the morning and 1 Capsule (10 mEq) before bedtime. 60 Capsule 5 09/30/2022 Active Omeprazole 20 MG Oral Capsule Delayed [...] the morning. 30 Tablet 11 12/09/2022 Active Mirtazapine 30 MG Oral Tablet (Remeron) Take 1.5 Tablets by mouth at bedtime. 45 Tablet 2 12/16/2022 Active busPIRone HCl 10 MG Oral Tablet [...] the morning. 30 Tablet 6 01/26/2023 Active Baclofen 10 MG Oral Tablet (Lioresal)Indicatio ns:Chronic bilateral low back pain without sciatica Take 1 Tablet by mouth 3 times a day as needed for Muscle spasms. 90 Tablet 0 02/04/2023 Active Nitrofurantoin Monohyd Macro 100 MG Oral [...] Anxiety. 90 Tablet 1 02/24/2023 Active Nystatin 255068 UNIT/GM External Powder ([facility] [place] [place] apply to affected area twice a day 60 g 1 03/08/2023 Active Fluticasone-Salmete rol 115-21 MCG/ACT Inhalation Aerosol (Advair Hfa) Inhale 2 Puffs by mouth in the morning and 2 Puffs before bedtime. 12 g 12 03/09/2023 Active Ipratropium-Albuter ol 0.5-2.5 (3) MG/3ML Inhalation Solution (Duoneb) Inhale 3 mL by mouth every 6 hours as needed for Wheezing. 90 mL 3 03/09/2023 Active Ipratropium-Albuter ol 0.5-2.5 (3) MG/3ML Inhalation Solution (Duoneb) Inhale 3 mL by mouth every 6 hours as needed for Wheezing. 90 mL 3 09/29/2022 3 Discontinu ed(Refill) Fluticasone-Salmete rol 115-21 MCG/ACT Inhalation Aerosol (Advair Hfa) Inhale 2 Puffs by mouth in the morning and 2 Puffs before bedtime. 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 Pt own tank Inhaled Oxygen Concentration - - Weight 139.6 kg (307 lb 12.2 oz) 03/09/2023 11:13 AM EDT Height 157.5 cm (5' 2") 03/09/2023 11:1 3 AM EDT Body Mass Index 56.29 03/09/2023 11:13 AM EDT documented in this encounter Progress Notes * Juan Quintero MD - 03/09/2023 11:22 AM EDT 03/09/2023 Pulmonary Medicine, [address] [place] [id number] Kimberly Abhilash Kendall 1960 female 62 year old Attending Physician Documentation: 62 year old female, significant past medical history of obesity, chronic hypoxic respiratory failure, COPD, CHF, paroxysmal AFib, multiple CVAs, chronic anticoagulation status with warfarin therapy,sleep apnea, noncompliant with CPAP therapy, 48 pack-year smoking history quit 4 years ago, presenting for pulmonary medicine follow-up evaluation. Since last evaluation, patient describes a stable baseline respiratory status, compliant with current bronchodilator regimen including Advair HFA along with DuoNeb nebulizer therapy. Limited exercisetolerance, minimal ambulation at home. Denies emergency room visits or nocturnal awakening due to cough, wheezing, shortness of breath. Did not require recent prednisone regimen. No visits to emergency room/urgent care center since last evaluation. Patient is compliant with 3 L nasal cannula oxygen continuous. Physical examination today shows obese body habitus, bilateral coarse rhonchi with scattered coarserales, no dullness, regular cardiac rhythm, 2+ pitting lower extremity edema and nonlateralizing Neuro examination. Office spirometry today shows FEV1 0.84 L, 36% of predicted along with FVC at 1.06 L, 36% of predicted, overall pattern consistent with restriction. Echocardiogram 2022 showed hyperdynamic LV with grade [address] chest March 2022 showed well-preserved lung parenchyma without acute infiltrates. Overall clinical picture consistent with restrictive ventilatory pattern likely related to reactiveairway disease and body habitus artifact, BMI 56.2. Plan to continue with current bronchodilator regimen and oxygen therapy. Importance of adding physical activity to current lifestyle was discussed. Patient was advised to contact the office with any change in symptoms status. Pulmonary clinic follow-up in 4 months. Assessment Restrictive ventilatory pattern BMI 56.2 Reactive airway disease Paroxysmal AFib Chronic hypoxic respiratory failure Follow Up: Return in about 4 months (around 07/09/2023) for Clinic Visit. | For: Clinic Visit | Check-out note: Restrictive ventilatory pattern BMI 56.2 Reactive airway disease Paroxysmal AFib Chronic hypoxic respiratory failure Plan: Continue with current bronchodilator regimen including Advair HFA and DuoNeb nebulizer therapy Physical activity encouraged as tolerated. Pulmonary clinic follow-up in 4 months Juan Quintero MD Subjective CC: Chief Complaint Patient presents with Follow Up HPI: Nursing Notes: Kinga Malcolm, INBOUND CALL CENTER AGENT 03/09/23 1133 Signed Interm History/Respiratory Symptoms Cough: Non productive Hemoptysis: No Sinus Symptoms: No Hospitalizations:No ED Trips: No Triggers: Exertion Nocturnal: Pt wears 2-3 liters at rest and with sleep and 4-5 liters with exertion CPAP/BiPAP/O2: Pt wears 2-3 liters at rest and with sleep and 4-5 liters with exertion Flu Vaccine: 08/28/22 Pneumovax: 03/20/09 [facility] Cat Question 03/09/2023 11:26 AM EDT - Filed by Patient When do you become breathless? (4) I am too breathless to leave the house or I am breathless when dressing How frequently do you cough? (3) Do you have phlegm in your chest? (5) - My chest is completely full of phlegm Is your chest tight? (5) - My chest feels very tight How breathless do you become when walking up a hill or steps? (5) - When I walk up a hill or one flight of stairs I am very breathless How limited are you doing activities at home? (5) - I am very limited doing activities at home How confident are you leaving home with your lung condition? (0) - I am confident leaving my home despite my condition How soundly do you sleep? (5) - I don't sleep soundly because of my lung condition How much energy do you have? (5) - I have no energy at all Total MMRC Score (range: 0 - 4) 4 Total CAT Score (range: 0 - 40) 33 Copd Rescue Question 03/09/2023 11:27 AM EDT - Filed by Patient Have you used an antibiotic (e.g., azithromycin, doxycycline, augmentin) in the last 12 months because of your breathing or lung problem? No Have you added or increased the dose of a steroid (e.g., prednisone, solumedrol) in the last 12 months because of your breathing or lung problem? No Did you go to the ED, or were you hospitalized in the last 12 months because of your breathing or lung problem? No Myc Visit Accident Related Question Question 03/09/2023 11:27 AM EDT - Filed by Patient Is this visit related to an accident? (i.e work, motor vehicle) No ROS: No reported history of Hemoptysis, Hematemesis, Melena No reported history of Dysuria, Hematuria, Flank Pain No reported history of chronic headache, seizures No reported history of Fall or trauma . No reported history of recent change in weight or appetite. Past Medical History: Diagnosis Date Back disorder Benign neoplasm of colon 10/06/10 adenomatous/repeat colonoscopy in 1 yr Chronic bilateral low back pain without sciatica 10/14/2020 COPD (chronic obstructive pulmonary disease) (HCC) COPD, mild (HCC) 04/06/2007 COPD, severe (HCC) 04/06/2007 Decreased functional mobility 08/28/2022 Depressive disorder, not elsewhere classified Drug-seeking behavior 10/17/2020 Generalized osteoarthritis History of multiple strokes 10/17/2020 History of narcotic addiction (HCC) 12/19/2021 Hyperplastic colonic polyp Hypothyroidism 04/16/2015 Malaise and fatigue Mixed dyslipidemia Moderate episode of recurrent major depressive disorder (HCC) 03/05/2020 Morbid obesity due to excess calories ([facility]) 03/05/2020 Narcotic addiction ([facility]) 10/04/2014 Non compliance w medication regimen 10/14/2020 Oxygen dependent 12/29/2019 Paroxysmal atrial fibrillation ([facility]) 10/14/2020 Patent foramen ovale PTSD (post-traumatic stress disorder) 03/05/2021 Schizoaffective disorder, chronic condition ([facility]) followed Dr Robby Diego [facility] Sequelae, post-stroke CVA Status asthmaticus Von Willebrand's disease ([facility]) Past Surgical History: Procedure Laterality Date BREAST BIOPSY Left benign--- done in her late 20's COLONOSCOPY THRU STOMA, W/BIOPSY 10/06/2010 adenomatous/repeat colonoscopy in 1 yr COLONOSCOPY THRU STOMA, W/BIOPSY 05/22/2013 hyperplastic polyp COLONOSCOPY, DIAGNOSTIC (RECTUM) 11/12/2020 large adenomatous polyp, repeat 6 mo / [facility] COLONOSCOPY, DIAGNOSTIC (RECTUM) N/A 01/13/2023 multiple small and larged mouthed diverticula/angiodysplastic lesion ascending colon/hemorrhoids/biopsies show adenomatous polyps/recall 1-2 years/Colon/[place] EGD, FLEXIBLE, DIAGNOSTIC 02/26/2015 retained food/[facility] EGD, FLEXIBLE, DIAGNOSTIC 11/12/2020 Gastric submucosal mass / [facility] EGD, FLEXIBLE, DIAGNOSTIC 11/06/2020 gastritis / [facility] EGD, FLEXIBLE, W/BIOPSY 05/19/2013 EGD, W/ENDOSCOPIC US 11/05/2011 UPPER GI ENDOSCOPY ENDOSCOPIC ULTRASOUND performed by BERENICE ASHBY at [facility] [place]; REPAIR INITIAL INGUINAL HERNIA REMOVE GALLBLADDER TOTAL HYSTERECTOMY and bso Social History Socioeconomic History Marital status: Number of children: 3 Tobacco Use Smoking status: Former Packs/day: 1.50 Years: 32.00 Pack years: 48.00 Types: Cigarettes Quit date: 2019 Years since quittin.3 Smokeless tobacco: Never Vaping Use Vaping Use: Former Substance and Sexual Activity Alcohol use: No Drug use: No Sexual activity: Yes Partners: Male Social History Narrative 1 cat No mold Family History Problem Relation Age of Onset Lung Disorder Mother copd Other (hepatitis) Mother Heart Disorder Father age 55 mu Mental Disorder Father schizophrenia Asthma Father Other (Other) Sister from sleep apnea Neurological Disorder Sister MR and epilepsy Other (Other) Son 2 sons von willebrand Other (Other) Daughter asd Current Outpatient Medications Medication Sig Dispense Refill [...] 2 Puffs before bedtime. 18 g 1 Potassium Chloride ER 10 MEQ Oral Capsule Extended Release Take 1 Capsule (10 mEq) by mouth in the morning and 1 Capsule (10 mEq) before bedtime. 60 Capsule 5 Omeprazole 20 MG Oral Capsule Delayed Release (PriLOSEC) take 1 capsule by mouth IN THE MORNINGand 1 capsule BEFORE BEDTIME 60 Capsule 5 Vitron-C 65-125 MG Oral Tablet (Iron-Vitamin C 65-125 mg per tab) Take 1 Tablet by mouth in themorning. 30 Tablet 11 Mirtazapine 30 MG Oral Tablet (Remeron) Take 1.5 Tablets by mouth at bedtime. 45 Tablet 2 busPIRone HCl 10 MG Oral Tablet (Buspar) Take 2 Tablets by mouth in the morning and 2 Tablets before bedtime. 120 Tablet 2 Isosorbide Mononitrate ER 30 MG Oral Tablet Extended Release 24 Hour (Imdur) take 1 tablet by mouth daily 30 Tablet 5 Solifenacin Succinate 10 MG Oral Tablet (VESIcare) Take 1 Tablet by mouth in the morning. 30 Tablet 6 Baclofen 10 MG Oral Tablet (Lioresal) Take 1 Tablet by mouth 3 times a day as needed for Musclespasms. 90 Tablet 0 Nitrofurantoin Monohyd Macro 100 MG Oral Capsule [...] needed for Pain, Moderate. 180 Tablet 0 LORazepam 0.5 MG Oral Tablet (Ativan) Take 1 Tablet by mouth every 8 hours as needed for Anxiety. 90 Tablet 1 Nystatin 929887 UNIT/GM External Powder (Nyamyc) apply to affected area twice a day 60 g 1 Fluticasone-Salmeterol 115-21 MCG/ACT Inhalation Aerosol (Advair Hfa) Inhale 2 Puffs by mouth in the morning and 2 Puffs before bedtime. 12 g 12 Ipratropium-Albuterol 0.5-2.5 (3) MG/3ML Inhalation Solution (Duoneb) Inhale 3 mL by mouth every 6 hours as needed for Wheezing. 90 mL 3 Nebulizer Device Use with nebulized meds 1 Each 0 Full Kit Nebulizer Set Use with nebulizer 1 Each 0 Albuterol Sulfate 0.63 MG/3ML Inhalation Nebulization Solution (Accuneb) Inhale 1 Vial (0.63 mg) via nebulizer every 4 hours as needed for Wheezing or Shortness of Breath. 540 mL 12 Current Facility-Administered Medications Medication Dose Route Frequency Provider Last Rate Last Admin Albuterol Sulfate (Proventil) (2.5 MG/3ML) 0.083% inhalation solution 2.5 mg 2.5 mg Nebulizer PRN Juan Quintero MD 2.5 mg at 03/09/23 1107 Albuterol Sulfate (Proventil) (5 MG/ML) 0.5% *conc* inhalation solution 2.5 mg 2.5 mg NebulizerPRN Juan Quintero MD Review of patient's allergies indicates: Allergen Reactions Aspirin Unknown von Willebrand's disease Salicylates von Willebrand's disease Objective Filed Vitals: 03/09/23 1113 03/09/23 1120 BP: 132/76 Pulse: 116 107 Resp: 18 Temp: 35.3 C (95.6 F) SpO2: 83% 89% Weight: (!) 139.6 kg (307 lb 12.2 oz) Height: 1.575 m (5' 2") Exam: Const: No signs of acute distress present. Head/Face: Normal on inspection. Eyes: Conjunctivae clear. Pupils equal round and reactive to light. ENMT: Oropharynx: No erythema, exudate or masses. Posterior pharynx is normal. Neck: Supple and symmetric. Resp: Respiratory examination as outlined above CV: Rate is regular. Rhythm is regular. No heart murmur appreciated. Extremities: 2+ pitting edema of the lower limbs bilaterally. Abdomen: Positive bowel sounds. Palpation of the abdomen reveals softness, but no distension or tenderness. No palpable hepatosplenomegaly. Musculo: Wheelchair status Skin: Skin is warm and dry. Neuro: Coordination normal. No involuntary movement. Psych: Patient's attitude is cooperative. Mood is normal. Affect is normal. Tests reviewed with the patient: Available Radiologic data was reviewed by me in PACS. The images were shown to the patient and findings were discussed with the patient. documented in this encounter Nursing Notes * Leighton Yun, INBOUND CALL CENTER AGENT - 03/09/2023 11:29 AM EDT Interm History/Respiratory Symptoms Cough: Non productive Hemoptysis: No Sinus Symptoms: No Hospitalizations:No ED Trips: No Triggers: Exertion Nocturnal: Pt wears 2-3 liters at rest and with sleep and 4-5 liters with exertion CPAP/BiPAP/O2: Pt wears 2-3 liters at rest and with sleep and 4-5 liters with exertion Flu Vaccine: 08/28/22 Pneumovax: 03/20/09 [facility] Cat Question 03/09/2023 11:26 AM EDT - Filed by Patient When do you become breathless? (4) I am too breathless to leave the house or I am breathless when dressing How frequently do you cough? (3) Do you have phlegm in your chest? (5) - My chest is completely full of phlegm Is your chest tight? (5) - My chest feels very tight How breathless do you become when walking up a hill or steps? (5) - When I walk up a hill or one flight of stairs I am very breathless How limited are you doing activities at home? (5) - I am very limited doing activities at home How confident are you leaving home with your lung condition? (0) - I am confident leaving my home despite my condition How soundly do you sleep? (5) - I don't sleep soundly because of my lung condition How much energy do you have? (5) - I have no energy at all Total MMRC Score (range: 0 - 4) 4 Total CAT Score (range: 0 - 40) 33 Copd Rescue Question 03/09/2023 11:27 AM EDT - Filed by Patient Have you used an antibiotic (e.g., azithromycin, doxycycline, augmentin) in the last 12 months because of your breathing or lung problem? No Have you added or increased the dose of a steroid (e.g., prednisone, solumedrol) in the last 12 months because of your breathing or lung problem? No Did you go to the ED, or were you hospitalized in the last 12 months because of your breathing or lung problem? No Myc Visit Accident Related Question Question 03/09/2023 11:27 AM EDT - Filed by Patient Is this visit related to an accident? (i.e work, motor vehicle) No documented in this encounter Plan of Treatment Upcoming Encounters Date Type Specialty Care Team Description 03/10/2023 [facility] [address] [place] [address] 03/11/2023 Office Visit Neurology Hina Lion PA-C [address] [facility] [place] [address] 03/22/2023 Telemedicine Psychiatry Hugo Alcantara MD [address] [place] [address] 04/20/2023 Office Visit Family Medicine Roger Alexandra MD [address] [place] [address] 2023 Imaging Radiology 06/11/2023 Telemedicine Urology Juan José Walters MD [address] [place] [address] 07/07/2023 Office Visit Cardiology Jerry Pacheco DO [address] [place] [address] Scheduled Procedures Name Priority Associated Diagnoses Date/Ti [...] (2 - Td or Tdap) 06/27/2018 06/27/2008 Lipid Panel 09/25/2020 09/25/2015, 0412/2014, 05/01/2011, Additional history exists Depression, Most Recent Score >= 10 (will fire each visit until score < 10) 04/24/2021 04/23/2021 *ADVANCE DIRECTIVE NOT ON FILE 02/16/2022 Mammogram 09/04/2023 09/04/2022, 10/15, 04/27/2014, Additional history exists O2 ASSESSMENT COMPLETED IN PAST YEAR FOR COPD 12/17/2023 12/17/2022 Diabetes Screening 10/23/2025 10/23/2022, 0 01/15/2022, 01/08/2022, Additional history exists COLONOSCOPY-EVERY 5 YRS AGES 18-100 01/14/2028 01/13/2023, 11/12/2020, 05/22/2013, Additional history exists Alpha-1 Antitrypsin Completed 02/16/2022 LUNG CANCER SCREENING - USE SMARTSET [id number] Completed 03/16/2022, 01/03/2017 Influenza Vaccine (FLU shot) [...] D, by GOLD 2017 classification (HCC)- Primary Obstructive sleep apnea Obstructive sleep apnea (adult) (pediatric) Chronic hypoxemic respiratory failure (HCC) Chronic respiratory failure Chronic diastolic CHF (congestive heart failure) (HCC) Chronic diastolic heart failure documented in this encounter Care Teams Physical Therapy Aide Relationship Specialty Start Date End Date Roger Alexandra MD [address] [place] [address] PCP - General Family Medicine 12/29/19 documented as of this encounter
--- OUTSIDE RECORDS SUMMARY | 2023-07-25 04:16 | External Medical Summary | Summary of Care ---
Author Name Unknown Organization [facility] Address [address] [place] [address] Phone [phone] Care Team Providers Care Director Of Online Merchandising Name Role Phone Roger Alexandra MD Primary Care Provider [phone] [phone] Encounter Details Date Type Department Care Team Description 03/15/[address] [facility] [address] [place] [address] Roger Alexandra MD [address] [place] [address] Allergies Active Allergy Reactions Severity Noted Date Comments Aspirin Unknown 12/12/2007 von Willebrand's disease Salicylates 03/01/2000 von Willebrand's disease documented as of this encounter (statuses as of 03/15/2023) Medications Medication Sig Dispensed Refills Start Date [...] respiratory failure ([facility]) Use with nebulizer 1 Each [...] (Lasix)Indications:C hronic diastolic CHF (congestive heart failure) ([facility]) take 1 tablet by mouth [...] Anxiety. 90 Tablet 1 02/24/2023 Active Nystatin 058420 UNIT/GM External Powder (Nyamyc) apply to affected area twice a day 60 g 1 03/08/2023 Active Fluticasone-Salmeter ol 115-21 MCG/ACT Inhalation Aerosol (Advair Hfa) Inhale 2 Puffs by mouth in the morning and 2 Puffs before bedtime. 12 g 12 03/09/2023 Active Ipratropium-Albutero l 0.5-2.5 (3) MG/3ML Inhalation [...] the day.. 30 Tablet 2 03/11/2023 Active Hospital, Clinic, or Other Facility Administered [...] as of this encounter (statuses as of 03/15/2023) Active Problems Problem Noted Date Decreased functional [...] as of this encounter (statuses as of 03/15/2023) Resolved Problems Problem Noted Date Resolved Date [...] as of this encounter (statuses as of 03/15/2023) Immunizations Name Administration Dates Next Due H1N1 [...] Encounters Date Type Specialty Care Team Description 03/16/2023 Laboratory Laboratory [facility] Draw [address] [place] [address] 03/17/2023 [facility] [address] [place] [address] 03/22/2023 Telemedicine Psychiatry Hugo Alcantara MD [address] [place] [address] 04/20/2023 Office Visit Family Medicine Roger Alexandra MD [address] [place] [address] 2023 Imaging Radiology 06/11/2023 Telemedicine Urology Juan José Walters MD [address] [place] [address] 07/07/2023 Office Visit Cardiology Jerry Pacheco DO [address] [place] [address] Scheduled Procedures Name Priority Associated Diagnoses Date/Ti [...] ASSESSMENT COMPLETED IN PAST YEAR FOR COPD 03/09/2024 03/09/2023 Diabetes Screening 10/23/2025 10/23/2022, 0 01/15/2022, 01/08/2022, Additional history exists COLONOSCOPY-EVERY 5 YRS AGES 18-100 01/14/2028 01/13/2023, 11/12/2020, 05/22/2013, Additional history exists Lipid Panel 03/09/2028 03/09/2023, 09/15, 02/14/2015, Additional history exists Alpha-1 Antitrypsin Completed 02/16/2022 LUNG CANCER SCREENING - USE SMARTSET 55554 Completed 03/16/2022, 01/03/2017 Influenza Vaccine (FLU shot) [...] Not on filedocumented as of this encounter Procedures Procedure Name Priority Date/Time Associated Diagnosis Comments FVC SCREENING SPIROMETRY Routine 03/09/2023 documented in this encounter Results * FVC SCREENING SPIROMETRY (03/09/2023) 03/09/2023 History Per Patient MEDICINE OUTSIDE LAB (SEE SCANNED REPORT) documented in this encounter Care Teams Director Of Online Merchandising Relationship Specialty Start Date End Date Roger Alexandra MD [address] [place] [address] PCP - General Family Medicine 12/29/19 documented as of this encounter
--- OUTSIDE RECORDS SUMMARY | 2023-07-25 04:16 | External Medical Summary | Summary of Care ---
Author Name Unknown Organization [facility] Address [address] [facility] [address] Phone [phone] Care Team Providers Care Rn Homecare Name Role Phone Roger Alexandra MD Primary Care Provider [phone] [phone] Reason for Visit * Reason Comments Dosage Adjustment Via Phone (anticoag Cl inic) Encounter Details Date Type Department Care Team Description 03/09/2023 Anticoagulation Pharmacy Call Center [address] [place] [address] [facility] [address] [place] [address] terminal worker current use 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* Allergies Active [...] by mouth in the morning. 30 Tablet 12/09/2022 Active Mirtazapine 30 MG Oral Tablet [...] 01/26/2023 Active Baclofen 10 MG Oral Tablet (Lioresal)Indication [...] Anxiety. 90 Tablet 1 02/24/2023 Active Nystatin 802008 UNIT/GM External Powder (Nyamyc) apply to affected [...] for Wheezing. 90 mL 3 03/09/2023 Active Hospital, Clinic, or Other Facility Administered [...] Progress Notes * Kim Mercado RPh - 03/09/2023 4:23 PM EDT Images from the original note were not included. Medication Therapy Disease Management - Anticoagulation Patient: Kimberly Kendall : 1960 Contacts Type Contact Phone/Fax 03/09/2023 04:23 PM EDT Phone (Outgoing) Kimberly Kendall (Self) [phone] (M) Spoke to Patient Current Warfarin Dose As of 03/09/2023 Warfarin maintenance plan: 5 mg (5 mg x 1) every day Patient-Reported Symptoms: Patient Findings Negatives: Signs/symptoms of thrombosis, Signs/symptoms of bleeding, Change in health, Change in alcohol use, Change in activity, Upcoming invasive procedure, Missed doses, Extra doses, Change in medications, Change in diet/appetite, Bruising INR Result As of 03/09/2023 INR goal: 2.0-3.0 INR used for dosin.5 (03/09/2023) Warfarin Plan As of 03/09/2023 Full warfarin instructions: 03/09: Hold; 03/10: Hold; Otherwise 5 mg every day Next INR check: 03/16/2023 Additional Dosing Information: Description GML Also sent MyG after trying to call Repeat PT/INR in 1 week(s) Weekly dose: not changed Kim Mercado [facility] Clinical Pharmacist 03/09/2023, 4:23 PM documented in this encounter Plan of Treatment Upcoming Encounters Date Type Specialty Care Team Description 03/11/2023 Office Visit Neurology Hina Lion PA-C [address] [place] [address] 03/22/2023 Telemedicine Psychiatry Hugo Alcantara MD [address] [place] [address] 04/20/2023 Office Visit Family Medicine Roger Alexandra MD [address] [place] [address] 2023 Imaging Radiology 06/11/2023 Telemedicine Urology Juan José Walters MD [address] [place] [address] 07/07/2023 Office Visit Cardiology Jerry Pacheco DO [address] [place] [address] Scheduled Procedures Name Priority Associated Diagnoses Date/Ti [...] Tdap) 06/27/2018 06/27/2008 Lipid Panel 09/25/2020 09/25/2015, 12/2014, 05/01/2011, Additional history exists Depression, Most Recent [...] 02/16/2022 LUNG CANCER SCREENING - USE SMARTSET 66382 Completed 03/16/2022, 01/03/2017 Influenza Vaccine (FLU shot) [...] as of this encounter Visit Diagnoses Diagnosis prison current use 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- Primary documented in this encounter Care Teams Rn Homecare Relationship Specialty Start Date End Date Roger Alexandra MD [address] [place] [address] PCP - General Family Medicine 12/29/19 documented as of this encounter
--- OUTSIDE RECORDS SUMMARY | 2023-07-25 04:16 | External Medical Summary | Summary of Care ---
Author Name Unknown Organization [facility] Address [address] [place] [address] Phone [phone] Care Team Providers Care Malt Liquors Sales Representative Name Role Phone Roger Alexandra MD Primary Care Provider [phone] [phone] Reason for Visit * Reason Onset Date Comments Appointment 03/10/2023 Request for vide o flip Encounter Details Date Type Department Care Team Description 03/10/2023 Telephone Neurology [facility] [address] [place] [address] Services, Scheduling [address] [place] [address] Appointment (Request for video flip) Allergies Active Allergy Reactions Severity Noted Date Comments Aspirin Unknown 12/12/2007 von Willebrand's disease Salicylates 03/01/2000 von Willebrand's disease documented as of this encounter (statuses as of 03/11/2023) Medications Medication Sig Dispensed Refills Start Date [...] 2017 classification ([facility]),Chronic hypoxemic respiratory failure ([facility]) Use with nebulized meds 1 Each 0 09/16/2022 Active Full Kit Nebulizer SetIndications:COPD, group D, by GOLD 2017 classification ([facility]),Chronic hypoxemic respiratory failure ([facility]) Use with nebulizer 1 Each 0 09/16/2022 [...] heart failure) ([facility]) take 1 tablet by mouth once daily [...] Anxiety. 90 Tablet 1 02/24/2023 Active Nystatin 493310 UNIT/GM External Powder (Nyamyc) apply to affected [...] Muscle spasms. 90 Tablet 0 03/10/2023 Active Hospital, Clinic, or Other Facility Administered Medication Ordered Dose Route Frequency Start Date End Date Status Albuterol Sulfate (Proventil) (2.5 MG/3ML) 0.083% inhalation solution 2.5 mgIndications:COPD, group D, by GOLD 2017 classification ([facility]) 2.5 mg NEBULIZER PRN 03/03/2023 03/02/2024 Acti ve Albuterol Sulfate (Proventil) (5 MG/ML) 0.5% *conc* inhalation solution 2.5 mgIndications:COPD, group D, by GOLD 2017 classification ([facility]) 2.5 mg NEBULIZER PRN 03/03/2023 03/02/2024 Acti ve documented as of this encounter (statuses as of 03/11/2023) Active Problems Problem Noted Date Decreased functional [...] as of this encounter (statuses as of 03/11/2023) Resolved Problems Problem Noted Date Resolved Date [...] 02/04/2006 12/21/2008 Atrial septal aneurysm 02/04/2006 9 supervisor intermediates current use 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 0 06/01/2005 [...] as of this encounter (statuses as of 03/11/2023) Immunizations Name Administration Dates Next Due H1N1 [...] Miscellaneous Notes * Telephone Encounter - RUFINA Marshall - 03/10/2023 3:26 PM EDT Thank you * Telephone Encounter - Capri Perez MED ASSIST - 03/10/2023 1:34 PM EDT We do not see new patients over video. * Telephone Encounter - RUFINA Marshall - 03/10/2023 12:56 PM EDT Pt calling to request 03/11 new neuro appt jaron Lion be rescheduled to a video from home appt due to transportation and limited mobility. Scheduling unable to reschedule. Plz contact pt at number in chart to advise if appt can be flipped. [phone] Thank you documented in this encounter Plan of Treatment Upcoming Encounters Date Type Specialty Care Team Description 03/11/2023 Office Visit Neurology Hina Lion PA-C [address] [place] [address] 03/15/2023 Home Visit Family Medicine Fawn Godfrey, Community Health Welding Machine Operator [employer] [address] [place] [address] 03/16/2023 Laboratory Laboratory Processing [facility] Mobile Home Draw [address] [place] [address] 03/17/2023 [facility] [address] [place] [address] 03/22/2023 Telemedicine Psychiatry Hugo Alcantara MD [address] [place] [address] 04/20/2023 Office Visit Family Medicine Roger Alexandra MD [address] [place] [address] 2023 Imaging Radiology 06/11/2023 Telemedicine Urology Juan José Walters MD [address] [place] [address] 07/07/2023 Office Visit Cardiology Jerry Pacheco DO [address] [place] [address] Scheduled Procedures Name Priority Associated Diagnoses Date/Ti [...] 02/16/2022 LUNG CANCER SCREENING - USE SMARTSET 77335 Completed 03/16/2022, 01/03/2017 Influenza Vaccine (FLU shot) [...] filedocumented as of this encounter Care Teams Malt Liquors Sales Representative Relationship Specialty Start Date End Date Roger Alexandra MD [address] [place] [address] PCP - General Family Medicine 12/29/19 documented as of this encounter
--- OUTSIDE RECORDS SUMMARY | 2023-07-25 04:16 | External Medical Summary | Summary of Care ---
Author Name Unknown Organization [facility] Address [address] [facility] [place] [address] Phone [phone] Care Team Providers Care Pipe Fitter Supervisor Name Role Phone Roger Alexandra MD Primary Care Provider [phone] [phone] Reason for Visit * Reason Comments Outpatient Testing Encounter Details Date Type Department Care Team Description 03/09/2023 Laboratory Laboratory, [facility] [address] [facility] [place] [address] [facility] [address] [place] [address] Other iron deficiency anemia; Encounter for long-term (current) use of other medications; Anticoagulation management encounter Allergies Active Allergy Reactions Severity Noted Date [...] diastolic CHF (congestive heart failure) ([facility]) take 1 tablet by mouth [...] Anxiety. 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 current use 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 0 06/01/2005 [...] Specialty Care Team Description 03/10/2023 [facility] [address] [facility] [place] [address] 03/11/2023 Office Visit Neurology Hina Lion PA-C [address] [facility] [place] [address] 03/22/2023 Telemedicine Psychiatry Hugo Alcantara MD [address] [place] [address] 04/20/2023 Office Visit Family Medicine Roger Alexandra MD [address] [place] [address] 2023 Imaging Radiology 06/11/2023 Telemedicine Urology Juan José Walters MD [address] [facility] [id number] 07/07/2023 Office Visit Cardiology Jerry Pacheco DO [address] [place] [address] Pending Results Name Type Priority Associated Diagnoses Date /Time IRON SCREEN, INCLUDING TIBC Lab Routine Other iron deficiency anemia 03/09/2023 12:12 PM EDT LIPID PANEL WITH DIRECT LDL IF TG IS HIGH Lab Routine Encounter for long-term (current) use of other medications 03/09/2023 12:12 PM EDT PT INR Lab Routine Anticoagulation management encounter 03/09/2023 12:21 PM EDT Scheduled Procedures Name Priority Associated Diagnoses Date/Ti [...] Tdap) 06/27/2018 06/27/2008 Lipid Panel 09/25/2020 09/25/2015, 04/0 12/2014, 05/01/2011, Additional history exists Depression, Most [...] 02/16/2022 LUNG CANCER SCREENING - USE SMARTSET 51750 Completed 03/16/2022, 01/03/2017 Influenza Vaccine (FLU shot) [...] Procedure Name Priority Date/Time Associated Diagnosis Comments CBC Routine 03/09/2023 12:12 PM EDT Other iron deficiency anemia documented in this encounter Results * (ABNORMAL) CBC (03/09/2023 12:12 PM EDT) WBC 7.10 4.00 - 10.80 K/uL 03/09/2023 12:24 PM EDT [facility] [place] [facility]10 RBC 4.37 3.85 - 5.15 M/uL 03/09/2023 12:24 PM EDT [facility] [place] 57-10 HGB 11.3(L) 12.0 - 15.3 g/dL 03/09/2023 12:24 PM EDT [facility] [place] 57-10 HCT 38.7 36.0 - 45.2 % 03/09/2023 12:24 PM EDT [facility] [place] 57-10 MCV 88.6 81.5 - 97.5 fL 03/09/2023 12:24 PM EDT [facility] [place] 57-10 MCH 25.9 27.0 - 34.0 pg 03/09/2023 12:24 PM EDT [facility] [place] 57-10 MCHC 29.2 32.0 - 36.0 g/dL 03/09/2023 12:24 PM EDT [facility] [place] 57-10 RDW 23.1 11.5 - 15.5 % 03/09/2023 12:24 PM EDT [facility] [place] 57-10 PLT 411(H) 140 - 400 K/uL 03/09/2023 12:24 PM EDT [facility] [place] 57-10 MPV 8.9 6.6 - 11.1 fL 03/09/2023 12:24 PM EDT [facility] [place] 57-10 Blood Venous blood specimen / Unknown Venipuncture / Unknown 03/09/2023 12:12 PM EDT 03/09/2023 12:12 PM EDT Jerry Pacheco DO LAB BLOOD ORDERABLES [facility] [place] [facility] [place] [address] documented in this encounter Visit Diagnoses Diagnosis Other iron deficiency anemia Encounter for long-term (current) use of other medications Anticoagulation management encounter Encounter for therapeutic drug monitoring documented in this encounter Care Teams Pipe Fitter Supervisor Relationship Specialty Start Date End Date Roger Alexandra MD [address] [place] [address] PCP - General Family Medicine 12/29/19 documented as of this encounter
--- OUTSIDE RECORDS SUMMARY | 2023-07-25 04:16 | External Medical Summary | Summary of Care ---
Author Name Unknown Organization [facility] Address [address] [place] [address] Phone [phone] Care Team Providers Care Medical Attendant Name Role Phone Jeevan Mclean MD Primary Care Provider [phone] [phone] Reason for Visit * Reason Onset Date Comments Medication Refill 03/09/2023 Encounter Details Date Type Department Care Team Description 03/09/2023 Refill Family [facility] [address] [place] [address] Jeevan Mclean MD [address] [place] [id number] Chronic bilateral low back pain without sciatica Allergies Active Allergy Reactions Severity Noted Date Comments Aspirin Unknown 12/12/2007 von Willebrand's disease Salicylates 03/01/2000 von Willebrand's disease documented as of this encounter (statuses as of 03/10/2023) Medications Medication Sig Dispensed Refills Start Date End Date Status Warfarin Sodium 5 MG Oral Tablet (Coumadin)Indicatio ns:Paroxysmal atrial fibrillation (HCC) Take by mouth 1 Tablet in the evening. OR As directed by coumadin clinic. 90 Tablet 3 02/16/2022 Active oxygen IN GASIndications:Nike Athlete 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 respiratory failure (HCC),COPD, group D, [...] Anxiety. 90 Tablet 1 02/24/2023 Active Nystatin 138430 UNIT/GM External Powder (Nyamyc) apply to affected [...] Muscle spasms. 90 Tablet 0 03/10/2023 Active Baclofen 10 MG Oral Tablet (Lioresal)Indicatio ns:Chronic bilateral low back pain without sciatica Take 1 Tablet by mouth 3 times a day as needed for Muscle spasms. 90 Tablet 0 02/04/2023 3 Discontinu ed(Refill) Hospital, Clinic, or Other [...] as of this encounter (statuses as of 03/10/2023) Active Problems Problem Noted Date Decreased functional [...] as of this encounter (statuses as of 03/10/2023) Resolved Problems Problem Noted Date Resolved Date [...] 12/21/2008 Atrial septal aneurysm 02/04/2006 9 senior living current use 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 0 06/01/2005 [...] as of this encounter (statuses as of 03/10/2023) Immunizations Name Administration Dates Next Due H1N1 [...] Telephone Encounter - Jeevan Mclean MD - 03/10/2023 11:25 AM EDTSigned Prescriptions: Disp Refills Baclofen 10 MG Oral Tablet (Lioresal) 90 Tab*0 Sig: Take 1 Tablet by mouth 3 times a day as needed for Muscle spasms. Authorizing Provider: JEEVAN MCLEAN * Telephone Encounter - Nusrat Covington RPh - 03/10/2023 10:06 AM EDTPending Prescriptions: Disp Refills Baclofen 10 MG Oral Tablet (Lioresal) 90 Tab*0 Sig: Take 1 Tablet by mouth 3 times a day as needed for Muscle spasms. * Telephone Encounter - Nusrat Covington RPh - 03/10/2023 10:05 AM EDT [facility] is currently not authorized to approve refills for the pended medication(s) per refillprotocol. Please approve if appropriate. Thanks, Nusrat Covington, PharmD Clinical Pharmacist [facility] [phone] 03/10/2023, 10:05 AM * Telephone Encounter - Nusrat Covington RPh - 03/10/2023 10:05 AM EDT Pending Prescriptions: Disp Refills Baclofen 10 MG Oral Tablet (Lioresal) 90 Tab*0 Sig: Take 1 Tablet by mouth 3 times a day as needed for Muscle spasms. Last Visit: 09/30/2022 (in office), 12/16/2022 (telemedicine) Next Visit: 04/20/2023 If no future appointments scheduled, and last appointment is greater than a year ago, please schedule patient for a follow-up appointment Last date the medication was ordered: 02/04/23 Pharmacy: [id number] Is this request for a controlled substance? No Urine Drug Screen:No results found. However, due [...] Office Visit Neurology Hina Lion PA-C [address] [place] [address] 03/15/2023 Home Visit Family Medicine Fawn Godfrey, Community Health Main Line Assembler [address] [place] [address] 03/16/2023 Laboratory Laboratory Processing [facility], [facility] Mobile Home Draw [address] [place] [address] 03/17/2023 [facility] [address] [place] [address] 03/22/2023 Telemedicine Psychiatry Hugo Alcantara MD [address] [place] [address] 04/20/2023 Office Visit Family Medicine Jeevan Mclean MD [address] [place] [address] 2023 Imaging Radiology 06/11/2023 Telemedicine Urology Juan José Walters MD [address] [place] [address] 07/07/2023 Office Visit Cardiology Jerry Pacheco DO [address] [place] [address] Scheduled Procedures Name Priority Associated Diagnoses Date/Ti [...] 02/16/2022 LUNG CANCER SCREENING - USE SMARTSET 64411 Completed 03/16/2022, 01/03/2017 Influenza Vaccine (FLU shot) [...] sciatica documented in this encounter Care Teams Medical Attendant Relationship Specialty Start Date End Date Jeevan Mclean MD [address] [place] [address] PCP - General Family Medicine 12/29/19 documented as of this encounter
--- OUTSIDE RECORDS SUMMARY | 2023-07-25 04:16 | External Medical Summary | Summary of Care ---
Author Name Unknown Organization [facility] Address [address] [place] [address] Phone [phone] Care Team Providers Care Steersman Name Role Phone Roger Alexandra MD Primary Care Provider [phone] [phone] Reason for Visit * Reason Onset Date Comments case management 03/10/2023 Encounter Details Date Type Department Care Team Description 03/10/2023 Rac Specialist Telephone Family [facility] [address] [place] [address] Yara Morris, land management forester Allergies Active Allergy Reactions Severity Noted Date [...] Anxiety. 90 Tablet 1 02/24/2023 Active Nystatin 742951 UNIT/GM External Powder (Nyamyc) apply to affected [...] 02/04/2006 12/21/2008 Atrial septal aneurysm 02/04/2006 [address] jail current use 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 0 06/01/2005 [...] Telephone Encounter - Yara Morris RN - 03/10/2023 9:24 AM EDT CM progress note S: Received a phone call from nurse Amber at [facility] Home health. Reports the patient received her AMChome scale, but it is registering 287 lbs and her office visit yesterday showed 307, and her old home scale measured 307 also this morning. O: Phone call follow up A: spoke with Home health nurse P: Will place EMERSON referral to check new scale. documented in this encounter Plan of Treatment Upcoming Encounters Date Type Specialty Care Team Description 03/11/2023 Office Visit Neurology Hina Lion PA-C [address] [place] [address] 03/15/2023 Home Visit Family Medicine Fawn Godfrey, Community Health Financial Assistance Specialist [address] [place] [address] 03/17/2023 Anticoagulation Pharmacy Telepharmacy, [facility] [address] [place] [address] 03/22/2023 Telemedicine Psychiatry Hugo Alcantara MD [address] [place] [address] 04/20/2023 Office Visit Family Medicine Roger Alexandra MD [address] [place] [address] 2023 Imaging Radiology 06/11/2023 Telemedicine Urology Juan José Walters MD [address] [place] [address] 07/07/2023 Office Visit Cardiology Jerry Pacheco DO [address] [place] [address] Scheduled Procedures Name Priority Associated Diagnoses Date/Ti [...] 02/16/2022 LUNG CANCER SCREENING - USE SMARTSET 14393 Completed 03/16/2022, 01/03/2017 Influenza Vaccine (FLU shot) [...] filedocumented as of this encounter Care Teams Steersman Relationship Specialty Start Date End Date Roger Alexandra MD [address] [place] [address] PCP - General Family Medicine 12/29/19 documented as of this encounter
--- OUTSIDE RECORDS SUMMARY | 2023-07-25 04:16 | External Medical Summary ---
Author Name Unknown Address Unknown Organization K0[facility] [place] [address] [place] [id number] Laboratory Report Ordering Provider Test Date Status HIEN,GUTOREY 03/09/2023 12:21:22 Final Observation Date Value Abnormality Reference (Units ) Status PT 03/09/2023 12:21:22 43.0 Above high normal 11 .6-15.2 (seconds) Final Performing Location [facility] [place] [address] [place] [address]
--- OUTSIDE RECORDS SUMMARY | 2023-07-25 04:16 | External Medical Summary | Summary of Care ---
Author Name Unknown Organization [facility] Address [address] [place] [address] Phone [phone] Care Team Providers Care Stock Broker Name Role Phone Roger Alexandra MD Primary Care Provider [phone] Reason for Visit * Reason Onset Date Comments Appointment 03/10/2023 Request for vide o flip Encounter Details Date Type Department Care Team Description 03/10/2023 Telephone Neurology [facility] [place] [address] [place] [address] Services, Scheduling [address] [place] [address] Appointment (Request for video flip) Allergies Active [...] PD, group D, by GOLD 2017 classification ([facility]),Chronic hypoxemic respiratory failure ([facility]) Use with nebulized meds 1 Each 0 09/16/2022 Active Full Kit Nebulizer SetIndications:COPD, group D, by GOLD 2017 classification ([facility]),Chronic hypoxemic respiratory failure ([facility]) Use with nebulizer 1 Each 0 [...] (Lasix)Indications:C hronic diastolic CHF (congestive heart failure) ([facility]) take 1 tablet by mouth once [...] Anxiety. 90 Tablet 1 02/24/2023 Active Nystatin 598139 UNIT/GM External Powder (Nyamyc) apply to affected [...] group D, by GOLD 2017 classification ([facility]) 2.5 mg NEBULIZER PRN 03/03/2023 03/02/2024 Acti ve Albuterol Sulfate (Proventil) (5 MG/ML) 0.5% *conc* inhalation solution 2.5 mgIndications:COPD, group D, by GOLD 2017 classification ([facility]) 2.5 mg NEBULIZER PRN 03/03/2023 03/02/2024 [...] 02/04/2006 12/21/2008 Atrial septal aneurysm 02/04/2006 9 intermediate manager current use 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 0 [...] to advise if appt can be flipped. [phone] Thank you documented in this encounter Plan of Treatment Upcoming Encounters Date Type Specialty Care Team Description 03/11/2023 Office Visit Neurology Hina Lion PA-C [address] [place] [address] 03/15/2023 Home Visit Family Medicine Fawn Godfrey, Community Health Health Service Coordinator [address] [place] [address] 03/16/2023 Laboratory Laboratory [place] [facility] [place] [facility] Draw [address] [place] [address] 03/17/2023 [facility] [address] [place] [address] 03/22/2023 Telemedicine Psychiatry Hugo Alcantara MD [address] [place] [address] 04/20/2023 Office Visit Family Medicine Roger Alexandra MD [address] [place] [address] 2023 Imaging Radiology 06/11/2023 Telemedicine Urology Juan José Walters MD [address] [place] [address] 07/07/2023 Office Visit Cardiology Jerry Pacheco DO [address] [place] [address] Scheduled Procedures Name Priority Associated Diagnoses Date/Ti [...] 02/16/2022 LUNG CANCER SCREENING - USE SMARTSET 57443 Completed 03/16/2022, 01/03/2017 Influenza Vaccine (FLU shot) [...] filedocumented as of this encounter Care Teams Stock Broker Relationship Specialty Start Date End Date Roger Alexandra MD [address] [place] [address] PCP - General Family Medicine 12/29/19 documented as of this encounter
--- OUTSIDE RECORDS SUMMARY | 2023-07-25 04:16 | External Medical Summary | Summary of Care ---
Author Name Unknown Organization [facility] Address [address] [facility] [address] Phone [phone] Care Team Providers Care Farm Equipment Engine Mechanic Name Role Phone Roger Alexandra MD Primary Care Provider [phone] [phone] Reason for Visit * Reason Comments Pulmonary Function Test Spirogram with uma stephens Encounter Details Date Type Department Care Team Description 03/09/2023 PulmDiagnostic Pulmonary Function Lab, [facility] [address] [place] [address] [place], [address] [facility] [place] [address] COPD, group D, by GOLD 2017 classification ([facility])* Allergies Active Allergy Reactions Severity Noted Date [...] (HCC),COPD, group D, by GOLD 2017 classification ([facility]) Use 2 LPM at rest, [...] Anxiety. 90 Tablet 1 02/24/2023 Active Nystatin 739516 UNIT/GM External Powder (Nyamyc) apply to affected area twice a day 60 g 1 03/08/2023 Active Hospital, Clinic, or Other Facility Administered [...] on file documented as of this encounter Nursing Notes * Leighton Malcolm, SHEET ROCK TAPER HELPER - 03/09/2023 11:54 AM EDT Kimberly Kendall was identified by name, Date of : (1960), and . Vitals were obtained for testing. Pt has 1.5 ppd for 32 years smoking history and quit 4 years ago. Pt wears 2-3 liters at rest and with sleep and 4-5 liters with exertion. Spirometry performed before and after a slow volume nebulizer treatment of 0.5ml of albuterol in 3 ml of NSS. Administrations This Visit Albuterol Sulfate (Proventil) (2.5 MG/3ML) 0.083% inhalation solution 2.5 mg Admin Date 03/09/2023 Action Given Dose 2.5 mg Route Nebulizer Administered By Leighton Malcolm RRT documented in this encounter Plan of Treatment Upcoming Encounters Date Type Specialty Care Team Description 03/10/2023 [facility] [address] [place] [address] 03/11/2023 Office Visit Neurology Hina Lion PA-C [address] [place] [address] 03/22/2023 Telemedicine Psychiatry Hugo Alcantara MD [address] [place] [address] 04/20/2023 Office Visit Family Medicine Roger Alexandra MD [address] [place] [address] 2023 Imaging Radiology 06/11/2023 Telemedicine Urology Juan José Walters MD [address] [place] [address] 07/07/2023 Office Visit Cardiology Jerry Pacheco DO [address] [place] [address] Scheduled Procedures Name Priority Associated Diagnoses Date/Ti [...] 02/16/2022 LUNG CANCER SCREENING - USE SMARTSET 60289 Completed 03/16/2022, 01/03/2017 Influenza Vaccine (FLU shot) [...] classification (HCC)- Primary documented in this encounter Administered Medications Active Administered Medications - up to 3 most recent administrations Medication Order MAR Action Action Date Dose Rate Site Albuterol Sulfate (Proventil) (2.5 MG/3ML) 0.083% inhalation solution 2.5 mg 2.5 mg, Nebulizer, PRN Other, Starting on Wed03/03/23 at 0752, Until Christiana 03/02/24 at 0751, For 365 days, Only one type of albuterol product should be administered (Nebulizer or Inhaler). Please select and document on the appropriate albuterol product order. Given 03/09/2023 11:07 AM EDT 2.5 mg documented in this encounter Care Teams Farm Equipment Engine Mechanic Relationship Specialty Start Date End Date Roger Alexandra MD [address] [place] [address] PCP - General Family Medicine 12/29/19 documented as of this encounter
--- OUTSIDE RECORDS SUMMARY | 2023-07-25 04:16 | External Medical Summary | Summary of Care ---
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) SIMA (generalized anxiety disorder) PTSD (post-traumatic stress disorder) Roger Drake, PhD [address] [place] [address] Referral ID Status Reason Start Date Expiration Date Visits Requested Visits Authorized [id number] Pending Review Specialty Services Required 12/03/[phone] Encounter Details Date Type Department Care Team Description 03/11/2023 Office Visit Neurology [facility] [address] [place] [address] Hina Lion PA-C [address] [place] [address] Memory changes*; Depression with anxiety; Paroxysmal atrial fibrillation (HCC) Allergies Active Allergy [...] classification ([facility]) Use 2 LPM at rest, 4 LPM [...] [facility]Chronic hypoxemic respiratory failure (HCC) Use with nebulized meds 1 Each 0 09/16/2022 Active Full Kit Nebulizer SetIndications:COPD, group D, by GOLD 2017 classification ([facility]),Chronic hypoxemic respiratory failure (HCC) Use with nebulizer [...] Anxiety. 90 Tablet 1 02/24/2023 Active Nystatin 700777 UNIT/GM External Powder (Nyamyc) apply to affected [...] Sign Reading Time Taken Comments Blood Pressure 125/75 03/11/2023 12:33 PM EDT Pulse 76 03/11/2023 12:33 PM EDT Temperature 37.7 C (99.9 F) 03/11/2023 12:33 PM E DT Respiratory Rate 18 03/11/2023 12:33 PM EDT Oxygen Saturation - - Inhaled Oxygen Concentration - - Weight 138.8 kg (306 lb) 03/11/2023 12:33 PM EDT Height - - Body Mass Index 55.97 03/09/2023 11:13 AM EDT documented in this encounter Plan of Treatment Upcoming Encounters Date Type Specialty Care Team Description 03/15/2023 Home Visit Family Medicine Fawn Godfrey, Community Health Otr Company Driver [address] [place] [address] 03/16/2023 Laboratory Laboratory [place] [facility] [place] [facility] [place] Draw [address] [place] [address] 03/17/2023 [facility] [address] [place] [address] 03/22/2023 Telemedicine Psychiatry Hugo Alcantara MD [address] [facility] [place] [address] 04/20/2023 Office Visit Family Medicine Roger Alexandra MD [address] [place] [address] 2023 Imaging Radiology 06/11/2023 Telemedicine Urology Juan José Walters MD [address] [place] [address] 07/07/2023 Office Visit Cardiology Jerry Pacheco DO [address] [place] [address] Scheduled Procedures Name Priority Associated Diagnoses Date/Ti [...] 02/16/2022 LUNG CANCER SCREENING - USE SMARTSET 53584 Completed 03/16/2022, 01/03/2017 Influenza Vaccine (FLU shot) [...] as of this encounter Visit Diagnoses Diagnosis Memory changes- Primary Memory loss Depression with anxiety Dysthymic disorder Paroxysmal atrial fibrillation (HCC) Atrial fibrillation documented in this encounter Care Teams Rn Maternity Relationship Specialty Start Date End Date Roger Alexandra MD [address] [place] [address] PCP - General Family Medicine 12/29/19 documented as of this encounter
--- OUTSIDE RECORDS SUMMARY | 2023-07-25 04:16 | External Medical Summary ---
Author Name Unknown Address Unknown Organization K01[facility] [address] [place] [address] Laboratory Report Ordering Provider Test Date Status LICHACAMRYN CONRAD 03/09/2023 12:12:13 Final Observation Date Value Abnormality Reference (Units ) Status Triglyceride 03/09/2023 12:12:13 180 Above high normal <=174 (mg/dL) Final Performing Location [facility] - [address] [place] [address]
--- OUTSIDE RECORDS SUMMARY | 2023-07-25 04:16 | External Medical Summary | Summary of Care ---
Author Name Unknown Organization [facility] Address [address] [place] [address] Phone [phone] Care Team Providers Care Sign Hanger Name Role Phone Roger Alexandra MD Primary Care Provider [phone] [phone] Reason for Visit * Reason Comments [facility] Care Coordination Services Encounter Details Date Type Department Care Team Description 03/15/2023 Home Visit Care Coordination [address] [place], [place] [id number] Fawn Godfrey, Community Health Product Operations Associate [address] [place], [place] [id number] Allergies Active Allergy Reactions Severity Noted Date [...] Anxiety. 90 Tablet 1 02/24/2023 Active Nystatin 216904 UNIT/GM External Powder (Nyamyc) apply to affected [...] 05/01/2021 Acute bronchitis, antibiotics not indicated 03/1606/27/2008 ISMA (generalized anxiety disorder) 02/08/2006 08/28/2022 Atrial septal defect 02/04/2006 12/21/2008 Atrial septal aneurysm 02/04/2006 9 intermission coordinator current use 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 0 06/01/2005 [...] Sign Reading Time Taken Comments Blood Pressure - - Pulse 103 03/15/2023 10:00 AM EDT Temperature 36.9 C (98.4 F) 03/15/2023 1 0:00 AM EDT Respiratory Rate - - Oxygen Saturation 90% 03/15/2023 10: 00 AM EDT Pt on 3 liters O2. Using her own tank Inhaled Oxygen Concentration - - Weight 137.2 kg (302 lb 8 oz) 03/15/2023 10:00 AM EDT Height - - Body Mass Index 55.33 03/09/2023 11:13 AM EDT documented in this encounter Progress Notes * Fawn Godfrey, [facility] Health Product Operations Associate - 03/15/2023 9:45 AM EDT Community Health Product Operations Associate Visit Date: 03/15/2023 Time: 9:45 AM Name: Kimberly Kendall : 1960 Referral Source: employee welfare manager Source of Information: Patient Spoken lang -iraqi Patient can read in Lithuanian: Yes. Silk Screen Etcher needed: No. COVID-19 screening completed: Yes Vitals: Vital signs completed: Yes, vital signs within normal range. Pulse 103 | Temp 36.9 C (98.4 F) | Wt (!) 137.2 kg (302 lb 8 oz) | SpO2 90% Comment: Pt on 3 liters O2. Using her own tank | BMI 55.33 kg/m | BSA 2.45 m iraqi Condition Changes: Changes in health or social status since last visit: no The patient has new concerns since last visit: No Progress towards goals since last visit: None noted Medications: Medication review completed? No, none requested Does the patient have barriers to medication adherence? No. Patient reports difficulty paying for medications or might in the future: No. Telehealth: This is a telehealth visit: No. Symptoms Surveys and Evaluations: [facility]10 completed this visit: Yes. Score is 4 or more? Yes, notified Provider/Client Support Representative Last flowsheet values for [facility]: Age 65+: 0 (03/15/2023 9:00 AM) Diagnosis [...] at risk for fallin (03/15/2023 9:00 AM) COPD Checklist COPD EMERSON (Community Health Product Operations Associate) Checklist The patient uses oxygen: Yes Tanks are stored: another room Compressor located away from anything flammable: yes Oxygen tubing: - Clean and in good repair: Yes - Reached out to Durable Medical Equipment supplier for replacement tubing: No, - Referred to Client Support Representative for additional in-home respiratory assessment: No, - Other: Describe how the patient manages going out with oxygen: She has small portable tank - Referred to Client Support Representative for portable oxygen order: No - Coordinated portable oxygen tanks with Durable Medical Equipment supplier: No The patient uses a nebulizer: No The patient uses an inhaler: Yes Describe how the patient uses the inhaler: Patient acknowledged the need to rinse their mouth after using the inhaler. Describe how the patient cleans the inhaler: Reviewed cleaning with patient and they returned demonstration. Frequency of inhaler use: 2 x/daily COPD Assessment Test (CAT) completed this visit: Yes Last flowsheet values for COPD Assessment Test (CAT): How often do you cough?: 3 (03/15/2023 9:00 AM) Do you have phlegm (mucus) in your chest at all? : 3 (03/15/2023 9:00 AM) Does your chest feel tight?: 4 (03/15/2023 9:00 AM) How out of breath are you when you walk up a hill or flight of stairs?: 5 (03/15/2023 9:00 AM) How limited are you doing any activities at home?: 5 (03/15/2023 9:00 AM) [id number])@How soundly do you sleep?: 5 (03/15/2023 9:00 AM) How much energy do you have?: 5 (03/15/2023 9:00 AM) CAT Total Score: 35 (03/15/2023 9:00 AM) Heart Failure Checklist A "good day" for the patient looks like most days. Today is different than a "good day": No Patient describes sleep as ok Normal The patient has been asked to track the amount of fluid they drink: No. There is an [facility] scale in the home: Yes. Patient struggles using scale Patient did use the scales, but is unable to palliative medicine physician one place.The weight fluxuates and you just need to see what weight comes up the most times. Typically, the patient's meals look like Patient's food choices are lower in sodium. Home Safety Does member identify any safety issues related to entering or exiting their home? No Does the patient need a wheelchair ramp to access the home? Yes Snow/ice removal assistance available? Yes Is there adequate lighting? Yes Are there railings on stairs? Yes Do sidewalks appear to be in good [...] concern that an air conditioner or other coolingdevice will help? Yes Do stairs in the home have railings? N/A Is there a medical alert or phone near patient? Yes Are walkways clear and well lit? Yes Does member identify any safety issues related to utilizing or accessing the bathroom in their home? No Does bathroom have grab bars needed? Yes The patient reports needing help getting on and off the toilet? No Does the patient report needing help bathing? Yes Are there any other identified issues/needs? No. If yes specify: Plan: Plan for the patient is to contact CM/PCP if her weight increases or she notices that her feet/ankles are starting to swell. Patient was told how important it is to weight daily. EMERSON had the patient stand on the [facility] scale and she could not stand long enough to get a reading. EMERSON just looked at the scale numbers that kept coming up to determine the weight. She was reminded to watch sodium and to elevate her legs. She stated she does every time she sits on her recliner chair. Her oxygen was 90 and patient stated she is on 3L. EMERSON suggested she contact the PCP/CM about increasing the oxygen. She stated that she has been told she can increase to 4L if she feels its necessary. Follow Up: Patient encouraged to call the intake phone number for all urgent but not emergent issues. Scheduled to follow up with patient as requested per CM/PCP. Fawn Godfrey Community Health Product Operations Associate 03/15/2023 9:45 AM Electronically signed by Fawn Godfrey [facility] Health Product Operations Associate at 03/15/2023 1:49 PM EDT documented in this encounter Plan of Treatment Upcoming Encounters Date Type Specialty Care Team Description 03/16/2023 Laboratory Laboratory Processing [facility] [place] Home Draw [address] [place] [address] 03/17/2023 [facility] [address] [place] [address] 03/22/2023 Telemedicine Psychiatry Hugo Alcantara MD [address] [place] [address] 04/20/2023 Office Visit Family Medicine Roger Alexandra MD [address] [place] [address] 2023 Imaging Radiology 06/11/2023 Telemedicine Urology Juan José Walters MD [address] [place] [address] 07/07/2023 Office Visit Cardiology Jerry Pacheco DO [address] [place] [address] Scheduled Procedures Name Priority Associated Diagnoses Date/Ti [...] 02/16/2022 LUNG CANCER SCREENING - USE SMARTSET 85969 Completed 03/16/2022, 01/03/2017 Influenza Vaccine (FLU shot) [...] filedocumented as of this encounter Care Teams Sign Hanger Relationship Specialty Start Date End Date Roger Alexandra MD [address] [place] [address] PCP - General Family Medicine 12/29/19 documented as of this encounter
--- OUTSIDE RECORDS SUMMARY | 2023-07-25 04:16 | External Medical Summary ---
Author Name Unknown Address Unknown Organization K0G:[facility] [address] - [address] [place] [address] Laboratory Report Ordering Provider Test Date Status RONNIE DIAL 03/09/2023 12:12:13 Final Observation Date Value Abnormality Reference (Units ) Status WBC, Total 03/09/2023 12:12:13 7.10 4.00-10.8 0 (K/uL) Final RBC 03/09/2023 12:12:13 4.37 3.85-5.15 (M/uL) Final Hemoglobin 03/09/2023 12:12:13 11.3 Below low normal 12 .0-15.3 (g/dL) Final HCT 03/09/2023 12:12:13 38.7 36.0-45.2 (%) Final MCV 03/09/2023 12:12:13 88.6 81.5-97.5 (fL) Final MCH 03/09/2023 12:12:13 25.9 27.0-34.0 (pg) Final MCHC 03/09/2023 12:12:13 29.2 32.0-36.0 (g/dL) Final RDW 03/09/2023 12:12:13 23.1 11.5-15.5 (%) Final Platelets 03/09/2023 12:12:13 411 Above high normal 14 0-400 (K/uL) Final MPV 03/09/2023 12:12:13 8.9 6.6-11.1 ( fL) Final Performing Location [facility] [place] [address] [place] [address]
--- OUTSIDE RECORDS SUMMARY | 2023-07-25 04:16 | External Medical Summary | Summary of Care ---
Author Name Unknown Organization [facility] Address [address] [facility] [address] Phone [phone] Care Team Providers Care Gas Burner Operator Name Role Phone Roger Alexandra MD Primary Care Provider [phone] [phone] Reason for Visit * Reason Onset Date Comments Protime Testing 03/09/2023 Encounter Details Date Type Department Care Team Description 03/09/2023 Telephone Pharmacy Call Center [address] [place] [address] [facility] [address] [place] [address] Protime Testing Allergies Active Allergy Reactions Severity Noted Date [...] [facility]),Chronic hypoxemic respiratory failure ([facility]) Use with nebulized meds 1 Each 0 09/16/2022 Active Full Kit Nebulizer SetIndications:COPD, group D, by GOLD 2017 classification ([facility]),Chronic hypoxemic respiratory failure ([facility]) Use with nebulizer 1 Each 0 [...] hronic diastolic CHF (congestive heart failure) ([facility]) take 1 tablet by mouth once [...] Anxiety. 90 Tablet 1 02/24/2023 Active Nystatin 311856 UNIT/GM External Powder (Nyamyc) apply to affected [...] 12/21/2008 Atrial septal aneurysm 02/04/2006 9 director long term care current use 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 0 [...] Miscellaneous Notes * Telephone Encounter - Kim Mercado RPh - 03/09/2023 12:16 PM EDT PT/INR order signed Kim Mercado Rph, Pharm.D. Clinical Pharmacist Telepharmacy [phone] 03/09/2023,12:16 PM documented in this encounter Plan of Treatment Upcoming Encounters Date Type Specialty Care Team Description 03/10/2023 [facility] [address] [place] [address] 03/11/2023 Office Visit Neurology Hina Lion PA-C [address] [place] [address] 03/22/2023 Telemedicine Psychiatry Hugo Alcantara MD [address] [place] [address] 04/20/2023 Office Visit Family Medicine Roger Alexandra MD [address] [place] [address] 2023 Imaging Radiology 06/11/2023 Telemedicine Urology Juan José Walters MD [address] [place] [address] 07/07/2023 Office Visit Cardiology Jerry Pacheco DO [address] [place] [address] Pending Results Name Type Priority Associated Diagnoses Date /Time PT INR Lab Routine Anticoagulation management encounter 03/09/2023 12:21 PM EDT Scheduled Orders Name Type Priority Associated Diagnoses Orde r Schedule PT INR Lab Routine Anticoagulation management encounter Other, Please specify in Comments field for 26 Occurrences starting 03/09/2023 until 03/09/2024 Scheduled Procedures Name Priority Associated Diagnoses Date/Ti [...] 02/16/2022 LUNG CANCER SCREENING - USE SMARTSET 06154 Completed 03/16/2022, 01/03/2017 Influenza Vaccine (FLU shot) [...] as of this encounter Visit Diagnoses Diagnosis Encounter for medication review- Primary Encounter for long-term (current) use of other medications Anticoagulation management encounter Encounter for therapeutic drug monitoring documented in this encounter Care Teams Gas Burner Operator Relationship Specialty Start Date End Date Roger Alexandra MD [address] [place] [address] PCP - General Family Medicine 12/29/19 documented as of this encounter
--- OUTSIDE RECORDS SUMMARY | 2023-07-25 04:16 | External Medical Summary ---
Author Name Unknown Address Unknown Organization [id number]:[facility] [place] [address] [place] [address] Laboratory Report Ordering Provider Test Date Status RONNIE DIAL 03/09/2023 12:12:13 Final Observation Date Value Abnormality Reference (Units ) Status Iron 03/09/2023 12:12:13 26 Below low normal 33-151 (ug/dL) Final Iron-binding capacity 03/09/2023 12:12:13 390 250-425 (ug/dL) Final Transferrin Sat % 03/09/2023 12:12:13 7 Below low normal 15-55 (%) Final Performing Location [facility] [place] [address] [place] [address]
--- OUTSIDE RECORDS SUMMARY | 2023-07-25 04:16 | External Medical Summary | Summary of Care ---
Author Name Unknown Organization [facility] Address [address] [facility] [address] Phone [phone] Care Team Providers Care Decorative Cutting Machine Tender Name Role Phone Jeevan Mclean MD Primary Care Provider +1 [phone] Reason for Visit * Reason Comments eRx-Medication Refill Encounter Details Date Type Department Care Team Description 03/15/2023 Refill Family Practice [facility] [address] [place] [address] Jeevan Mclean MD [address] [place] [...] 90 Tablet 3 2 Active oxygen IN GASIndications:Day Care Worker 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 respiratory failure (HCC),COPD, group D, [...] before bedtime. 18 g 1 2 Active Omeprazole 20 MG Oral Capsule Delayed Release (PriLOSEC) take 1 capsule by mouth IN THE MORNING and 1 capsule BEFORE BEDTIME 60 Capsule 5 2 Active Albuterol Sulfate 0.63 MG/3ML Inhalation Nebulization Solution (Accuneb) Inhale 1 Vial (0.63 mg) via nebulizer every 4 hours as needed for Wheezing or Shortness of Breath. 540 mL 12 2 Active Vitron-C 65-125 MG Oral Tablet (Iron-Vitamin C 65-125 mg per tab) Take 1 Tablet by mouth in the morning. 30 Tablet 11 3 Active Mirtazapine 30 MG Oral Tablet (Remeron) Take 1.5 Tablets by mouth at bedtime. 45 Tablet 2 3 Active busPIRone HCl 10 MG Oral [...] LEG SWELLING 30 Tablet 1 3 Active traMADol HCl 50 MG Oral Tablet (Ultram)Indications :Chronic bilateral low back pain without sciatica Take 2 Tablets by mouth every 8 hours as needed for Pain, Moderate. 180 Tablet 0 3 Active LORazepam 0.5 MG Oral Tablet (Ativan) Take 1 Tablet by mouth every 8 hours as needed for Anxiety. 90 Tablet 1 3 Active Nystatin 233020 UNIT/GM External Powder (Nyamyc) apply to affected area twice a day 60 g 1 3 Active Fluticasone-Salmete rol 115-21 MCG/ACT Inhalation Aerosol (Advair Hfa) Inhale 2 Puffs by mouth in the morning and 2 Puffs before bedtime. 12 g 12 3 Active Ipratropium-Albuter ol 0.5-2.5 (3) MG/3ML Inhalation Solution (Duoneb) Inhale 3 mL by mouth every 6 hours as needed for Wheezing. 90 mL 3 3 Active Baclofen 10 MG Oral Tablet [...] BEFORE BEDTIME 60 Capsule 5 3 Active Potassium Chloride ER 10 MEQ Oral Capsule Extended Release Take 1 Capsule (10 mEq) by mouth in the morning and 1 Capsule (10 mEq) before bedtime. 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 current use 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 0 [...] encounter Miscellaneous Notes * Telephone Encounter - Kina Bai [facility] - 03/15/2023 4:01 PM EDTSigned Prescriptions: Disp Refills Potassium Chloride ER 10 MEQ Oral Capsule *60 Cap*5 Sig: take 1 capsule by mouth every morning and 1 capsule by mouth BEFORE BEDTIMEAuthorizing Provider: JEEVAN MCLEAN User: KINA BAI documented in this encounter Plan of Treatment Upcoming Encounters Date Type Specialty Care Team Description 03/16/2023 Laboratory Laboratory Processing [facility], [facility] Mobile Home Draw [address] [place] [address] 03/17/2023 [facility] [address] [place] [address] 03/22/2023 Telemedicine Psychiatry Hugo Alcantara MD [address] [place] [address] 04/20/2023 Office Visit Family Medicine Jeevan Mclean MD [address] [place] [address] 2023 Imaging Radiology 06/11/2023 Telemedicine Urology Juan José Walters MD [address] [place] [id number] 07/07/2023 Office Visit Cardiology Jerry Pacheco, DO [address] [place] [address] Scheduled Procedures Name Priority Associated Diagnoses Date/Ti [...] 02/16/2022 LUNG CANCER SCREENING - USE SMARTSET [id number] Completed 03/16/2022, 01/03/2017 Influenza Vaccine (FLU shot) [...] filedocumented as of this encounter Care Teams Decorative Cutting Machine Tender Relationship Specialty Start Date End Date Jeevan Mclean MD [address] [place] [address] PCP - General Family Medicine 12/29/19 documented as of this encounter
--- OUTSIDE RECORDS SUMMARY | 2023-07-25 04:17 | External Medical Summary | Summary of Care ---
Author Name Unknown Organization [facility] Address [address] [place] [address] Phone [phone] Care Team Providers Care Register Of Wills Name Role Phone Roger Alexandra MD Primary Care Provider [phone] Reason for Visit * Reason Onset Date Comments Medication Refill 02/24/2023 Encounter Details Date Type Department Care Team Description 02/24/2023 Refill Psychiatry, [facility] [address] [place] [address] Venkata Alcantara MD [address] [place] [address] Allergies Active Allergy Reactions Severity Noted Date Comments Aspirin Unknown 12/12/2007 von Willebrand's disease Salicylates 03/01/2000 von Willebrand's disease documented as of this encounter (statuses as of 02/24/2023) Medications Medication Sig Dispensed Refills Start Date End Date Status Warfarin Sodium 5 MG Oral Tablet (Coumadin)Indicatio ns:Paroxysmal atrial fibrillation (HCC) Take by mouth 1 Tablet in the evening. OR As directed by coumadin clinic. 90 Tablet 3 02/16/2022 Active oxygen IN GASIndications:Silk Screen Repairer 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 respiratory failure (HCC),COPD, group [...] before bedtime. 18 g 1 09/29/2022 Active Ipratropium-Albuter ol 0.5-2.5 (3) MG/3ML Inhalation Solution (Duoneb) Inhale 3 mL by mouth every 6 hours as needed for Wheezing. 90 mL 3 09/29/2022 Active Potassium Chloride ER 10 MEQ [...] the morning. 30 Tablet 11 12/09/2022 Active Fluticasone-Salmete rol 115-21 MCG/ACT Inhalation Aerosol (Advair Hfa) Inhale 2 Puffs by mouth in the morning and 2 Puffs before bedtime. 12 g 12 12/15/2022 Active Mirtazapine 30 MG Oral Tablet (Remeron) [...] Pain, Moderate. 180 Tablet 0 02/17/2023 Active Nystatin 979574 UNIT/GM External Powder ([facility]) apply to affected area twice a day 15 g 1 02/18/2023 Active LORazepam 0.5 MG Oral Tablet (Ativan) Take 1 Tablet by mouth every 8 hours as needed for Anxiety. 90 Tablet 1 02/24/2023 Active LORazepam 0.5 MG Oral Tablet (Ativan) Take 1 Tablet by mouth every 8 hours as needed for Anxiety. Do not start before December 25, 2022. 90 Tablet 1 12/25/2022 3 Discontinu ed(Refill) documented as of this encounter (statuses as of 02/24/2023) Active Problems Problem Noted Date Decreased functional [...] Paroxysmal atrial fibrillation 0 Super obese 03/05/2020 Acquired hypothyroidism 04/16/2015 Idiopathic cardiomyopathy 09/15/2013 Von Willebrand disease 03/10/2013 Obstructive sleep apnea 07/05/2007 Overview: ICD-10 update of inactive term Medical home patient encounter 4 Irritable bowel syndrome with diarrhea 0 04/13/2001 Depression with anxiety documented as of this encounter (statuses as of 02/24/2023) Resolved Problems Problem Noted Date Resolved Date [...] as of this encounter (statuses as of 02/24/2023) Immunizations Name Administration Dates Next Due H1N1 [...] Telephone Encounter - Venkata Alcantara MD - 02/24/2023 12:35 PM EDT Signed Prescriptions: Disp Refills LORazepam 0.5 MG Oral Tablet (Ativan) 90 Tab*1 Sig: Take 1 Tablet by mouth every 8 hours as needed for Anxiety.Authorizing Provider: VENKATA ALCANTARA--------- * Telephone Encounter - RUFINA Jacome - 02/24/2023 11:48 AM EDTPending Prescriptions: Disp Refills LORazepam 0.5 MG Oral Tablet (Ativan) 90 Tab*1 Sig: Take 1 Tablet by mouth every 8 hours as needed for Anxiety. * Telephone Encounter - RUFINA Jacome - 02/24/2023 11:47 AM EDT Refill request from patient (Ebony) for ativan. Medication last filled on 12/25/22 with 1 refills. Patient last seen on 12/16/22 with return appointment scheduled for 03/01/23. Patient had 0 cancelled appointments and 0 NO SHOW appointments. documented in this encounter Plan of Treatment Upcoming Encounters Date Type Specialty Care Team Description 03/01/2023 Laboratory Laboratory Processing [facility] Mobile Home Draw [address] [place] [address] 03/01/2023 Telemedicine Psychiatry Venkata Alcantara MD [address] [place] [address] 03/02/2023 [facility] [address] [address] [place] [address] 03/11/2023 Office Visit Neurology Hina Lion PA-C [address] [facility], [place] [address] 03/16/2023 Office Visit Pulmonary Alisha Carrero, ACCOUNT ADVISOR [address] [place] [address] 03/17/2023 PulmDiagnostic Pulmonary Function [place], [facility] [address] [place] [address] 2023 Imaging Radiology 06/11/2023 Telemedicine Urology Juan José Walters MD [address] [place] [address] 07/07/2023 Office Visit Cardiology Jerry Pacheco, [address] [place] [address] Scheduled Procedures Name Priority Associated Diagnoses Date/Ti [...] 02/16/2022 LUNG CANCER SCREENING - USE SMARTSET [id number] Completed 03/16/2022 Influenza Vaccine (FLU shot) Completed , 11/11/2021, [...] filedocumented as of this encounter Care Teams Register Of Wills Relationship Specialty Start Date End Date Roger Alexandra MD [address] [place] [address] PCP - General Family Medicine 12/29/19 documented as of this encounter
--- OUTSIDE RECORDS SUMMARY | 2023-07-25 04:17 | External Medical Summary | Summary of Care ---
Author Name Unknown Organization [facility] Address [address] [facility] [place] [address] Phone [phone] Care Team Providers Care Medicare Specialist Name Role Phone Roger Alexandra MD Primary Care Provider [phone] Reason for Visit * Reason Onset Date Comments FYI 02/26/2023 Encounter Details Date Type Department Care Team Description 02/26/2023 Telephone Family Practice [facility] [address] [place] [address] Roger Alexandra MD [email or web address] [place] [id number] FYI Allergies Active Allergy Reactions Severity Noted Date Comments Aspirin Unknown 12/12/2007 von Willebrand's disease Salicylates 03/01/2000 von Willebrand's disease documented as of this encounter (statuses as of 03/01/2023) Medications Medication Sig Dispensed Refills Start Date [...] before bedtime. 18 g 1 09/29/2022 Active Ipratropium-Albutero l 0.5-2.5 (3) MG/3ML Inhalation [...] the morning. 30 Tablet 11 12/09/2022 Active Fluticasone-Salmeter ol 115-21 MCG/ACT Inhalation Aerosol [...] Moderate. 180 Tablet 0 02/17/2023 Active Nystatin 707796 UNIT/GM External Powder (Nyamyc) apply to affected area twice a day 15 g 1 02/18/2023 Active LORazepam 0.5 MG Oral Tablet (Ativan) Take 1 Tablet by mouth every 8 hours as needed for Anxiety. 90 Tablet 1 02/24/2023 Active documented as of this encounter (statuses as of 03/01/2023) Active Problems Problem Noted Date Decreased functional [...] as of this encounter (statuses as of 03/01/2023) Resolved Problems Problem Noted Date Resolved Date [...] as of this encounter (statuses as of 03/01/2023) Immunizations Name Administration Dates Next Due H1N1 [...] Miscellaneous Notes * Telephone Encounter - RUFINA Wu - 02/26/2023 11:45 AM EDT Patient had missed call, no TE's. Assuming appointment reminder for upcoming lab draw. documented in this encounter Plan of Treatment Upcoming Encounters Date Type Specialty Care Team Description 03/01/2023 Telemedicine Psychiatry Hugo Alcantara MD [address] [place] [address] 03/02/2023 [facility] [address] [facility] [place] [address] 03/11/2023 Office Visit Neurology Hina Lion PA-C [address] [facility], [place] [address] 03/16/2023 Office Visit Pulmonary Alisha Carrero CRNP [address] [place] [address] 03/17/2023 PulmDiagnostic Pulmonary Function [place], [facility] [address] [place] [address] 2023 Imaging Radiology 06/11/2023 Telemedicine Urology Juan José Walters MD [address] [place] [address] 07/07/2023 Office Visit Cardiology Jerry Pacheco DO [address] [place] [address] Scheduled Procedures Name Priority Associated Diagnoses Date/Ti [...] Tdap) 06/27/2018 06/27/2008 Lipid Panel 09/25/2020 09/25/2015, 04/12/2014, 05/01/2011, Additional history exists Depression, Most Recent [...] 02/16/2022 LUNG CANCER SCREENING - USE SMARTSET [id number] Completed 03/16/2022, 01/03/2017 Influenza Vaccine (FLU shot) [...] filedocumented as of this encounter Care Teams Medicare Specialist Relationship Specialty Start Date End Date Roger Alexandra MD [address] [place] [address] PCP - General Family Medicine 12/29/19 documented as of this encounter
--- OUTSIDE RECORDS SUMMARY | 2023-07-25 04:17 | External Medical Summary | Summary of Care ---
Author Name Unknown Organization [facility] Address [address] [facility] [address] Phone [phone] Care Team Providers Care Web Offset Press Feeder Name Role Phone Roger Alexandra MD Primary Care Provider [phone] Reason for Visit * Reason Onset Date Comments Advice 03/01/2023 [facility] Home Health Encounter Details Date Type Department Care Team Description 03/01/2023 Telephone Family Practice [facility] [address] [place] [address] Roger Alexandra MD [address] [place] [address] Advice ([facility] Home Health) Allergies Active Allergy Reactions Severity Noted Date Comments Aspirin Unknown 12/12/2007 von Willebrand's disease Salicylates 03/01/2000 von Willebrand's disease documented as of this encounter (statuses as of 03/03/2023) Medications Medication Sig Dispensed Refills Start Date [...] D, by GOLD 2017 classification ([facility]),Chronic hypoxemic respiratory failure ([facility]) Use with nebulized meds 1 Each 0 09/16/2022 Active Full Kit Nebulizer SetIndications:COPD, group D, by GOLD 2017 classification ([facility]),Chronic hypoxemic respiratory failure ([facility]) Use with nebulizer 1 Each 0 09/16/2022 [...] as of this encounter (statuses as of 03/03/2023) Active Problems Problem Noted Date Decreased functional [...] as of this encounter (statuses as of 03/03/2023) Resolved Problems Problem Noted Date Resolved Date [...] as of this encounter (statuses as of 03/03/2023) Immunizations Name Administration Dates Next Due H1N1 [...] Telephone Encounter - Yara Morris RN - 03/01/2023 11:11 AM EDT Posmetricsg message sent to patient. * Telephone Encounter - Roger Alexandra MD - 03/01/2023 10:42 AM EDT Noted. As per usual, I recommend she be compliant with her treatment. Not much more I can offer in the way of advice here. * Telephone Encounter - Mónica Kurtz LPN - 03/01/2023 10:29 AM EDT Se calling from [facility]. She has a weight increase of 3 lbs since last week. She is 309 today. Last week 306. She is noncompliant. No sob. She continues to have expiratory wheezes. Refuses nebulizer treatments. Has not done inhaler since Wednesday. Noncompliant, troublesome, hard to manage patient. Her oxygen @ 3 lpm was 91 % * Telephone Encounter - RUFINA Barron - 03/01/2023 10:25 AM EDT Reason for patient's call: [facility] Home Health to discuss weight increase Caller was transferred to [facility] at the nurse line. documented in this encounter Plan of Treatment Upcoming Encounters Date Type Specialty Care Team Description 03/09/2023 Laboratory Laboratory Processing [facility] Mobile Home Draw [address] [place], [place] [id number] 03/09/2023 PulmDiagnostic Pulmonary Function [place], [facility] [address] [facility] [place] [address] 03/09/2023 Office Visit Pulmonary Juan Quintero MD [address] [facility] [place] [address] 03/10/2023 [facility] Tele[facility]acy, [facility] [address] [facility] [place] [address] 03/11/2023 Office Visit Neurology [facility] [address] [facility] [address] 03/22/2023 Telemedicine Psychiatry Hugo Alcantara MD [address] [place] [address] 2023 Imaging Radiology 06/11/2023 Telemedicine Urology Juan José Waltres MD [address] [place] [address] 07/07/2023 Office Visit Cardiology Jerry Pacheco, DO [address] [place] [address] Scheduled Procedures Name Priority Associated Diagnoses Date/Ti [...] 02/16/2022 LUNG CANCER SCREENING - USE SMARTSET [id number] Completed 03/16/2022, 01/03/2017 Influenza Vaccine (FLU shot) [...] filedocumented as of this encounter Care Teams Web Offset Press Feeder Relationship Specialty Start Date End Date Roger Alexandra MD [address] [facility] [place] [address] PCP - General Family Medicine 12/29/19 documented as of this encounter
--- OUTSIDE RECORDS SUMMARY | 2023-07-25 04:17 | External Medical Summary | Summary of Care ---
Author Name Unknown Organization [facility] Address [address] [facility] [address] Phone [phone] Care Team Providers Care Sales Assistant Displays Name Role Phone Roger Alexandra MD Primary Care Provider [phone] Reason for Visit * Reason Onset Date Comments Advice 02/23/2023 Encounter Details Date Type Department Care Team Description 02/23/2023 Telephone Pharmacy Call Center [address] [place] [address] [facility] [address] [place] [address] Advice Allergies Active Allergy Reactions Severity Noted Date Comments Aspirin Unknown 12/12/2007 von Willebrand's disease Salicylates 03/01/2000 von Willebrand's disease documented as of this encounter (statuses as of 02/23/2023) Medications Medication Sig Dispensed Refills Start Date [...] group D, by GOLD 2017 classification ([facility]),Chronic hypoxemic respiratory failure ([facility]) Use with nebulized meds 1 Each 0 09/16/2022 Active Full Kit Nebulizer SetIndications:COPD, group D, by GOLD 2017 classification ([facility]),Chronic hypoxemic respiratory failure ([facility]) Use with nebulizer 1 Each 0 [...] at bedtime. 45 Tablet 2 12/16/2022 Active LORazepam 0.5 MG Oral Tablet (Ativan) Take 1 Tablet by mouth every 8 hours as needed for Anxiety. Do not start before December 25, 2022. 90 Tablet 1 12/25/2022 Active busPIRone HCl 10 MG Oral Tablet [...] Moderate. 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 [facility] tracker updated within that encounter as well. Thanks, Dottie Eli, PharmD Clinical Pharmacist 02/23/2023 1:22 PM * Telephone Encounter - Mali Olivares MA - 02/23/2023 10:37 AM EDT Caller's name: Kimberly Preferred call back number(OFFICE NUMBER FOR ): [phone] Reason for call: patient requesting another call back stating she cannot listen to her voicemail, she wants to verify her Coumadin dosing, thank you. Mali Olivares MA, [facility] [employer] Manager [employer] [facility] documented in this encounter Plan of Treatment Upcoming Encounters Date Type Specialty Care Team Description 03/01/2023 Laboratory Laboratory Processing [facility], [facility] Mobile Home Draw [address], [place] [phone] 03/01/2023 Telemedicine Psychiatry Hugo Alcantaar MD [address] [place], [place] [address] 03/02/2023 Anticoagulation Pharmacy Telepharmacy, [facility] [address] [place] [address] 03/11/2023 Office Visit Neurology Hina Lino PA-C [address] [place] [address] 03/16/2023 Office Visit Pulmonary Alisha Carrero CRNP [address] [place] [address] 03/17/2023 PulmDiagnostic Pulmonary Function [place], [address] [place] [address] 2023 Imaging Radiology 06/11/2023 Telemedicine Urology Juan José Walters MD [address] [place] [address] 07/07/2023 Office Visit Cardiology Jerry Pacheco, DO [address] [place] [address] Scheduled Procedures Name Priority Associated Diagnoses Date/Ti [...] 02/16/2022 LUNG CANCER SCREENING - USE SMARTSET [id number] Completed 03/16/2022 Influenza Vaccine (FLU shot) Completed [...] filedocumented as of this encounter Care Teams Sales Assistant Displays Relationship Specialty Start Date End Date Roger Alexandra MD [address] [place] [address] PCP - General Family Medicine 12/29/19 documented as of this encounter
--- OUTSIDE RECORDS SUMMARY | 2023-07-25 04:17 | External Medical Summary | Summary of Care ---
Author Name Unknown Organization [facility] Address [address] [place] [address] Phone [phone] Care Team Providers Care Landing Support Specialist Name Role Phone Roger Alexandra MD Primary Care Provider +1 [phone] Encounter Details Date Type Department Care Team Description 03/01/2023 Orders Only Lab Mobile Phlebotomy [facility] [place] [address] [place], [place] [id number] Kim Mercado, [facility] [address] [place] [address] Idiopathic cardiomyopathy (HCC)*; Paroxysmal atrial fibrillation (HCC) Allergies Active Allergy [...] D, by GOLD 2017 classification ([facility]),Chronic hypoxemic respiratory failure ([facility]) Use with nebulized meds 1 Each 0 09/16/2022 Active Full Kit Nebulizer SetIndications:COPD, group D, by GOLD 2017 classification ([facility]),Chronic hypoxemic respiratory failure ([facility]) Use with nebulizer 1 Each [...] Moderate. 180 Tablet 0 02/17/2023 Active Nystatin 075644 UNIT/GM External Powder (Nyamyc) apply to affected [...] as of this encounter Progress Notes * MAXWELL Khalil - 03/01/2023 4:33 AM EDT ptinr documented in this encounter Plan of Treatment Upcoming Encounters Date Type Specialty Care Team Description 03/01/2023 Laboratory Laboratory Processing [facility] Mobile Home Draw [address] [place] [address] 03/01/2023 Telemedicine Psychiatry Hugo Alcantara MD [address] [place] [address] 03/02/2023 [facility] [address] [facility] [address] 03/11/2023 Office Visit Neurology Hina Lion PA-C [address] [place] [address] 03/16/2023 Office Visit Pulmonary Alisha Carrero CRNP [address] [place] [address] 03/17/2023 PulmDiagnostic Pulmonary Function [place], Pft [address] [place] [address] 2023 Imaging Radiology 06/11/2023 Telemedicine Urology Juan José Walters MD [address] [place] [address] 07/07/2023 Office Visit Cardiology Jerry Pacheco, [address] [place] [address] Scheduled Orders Name Type Priority Associated Diagnoses Orde r Schedule PT INR Lab Routine Idiopathic cardiomyopathy (HCC) Paroxysmal atrial fibrillation (HCC) Expected: 03/01/2023, Expires: 03/01/2024 Scheduled Procedures Name Priority Associated Diagnoses Date/Ti [...] 02/16/2022 LUNG CANCER SCREENING - USE SMARTSET 18700 Completed 03/16/2022, 01/03/2017 Influenza Vaccine (FLU shot) [...] as of this encounter Visit Diagnoses Diagnosis Idiopathic cardiomyopathy (HCC) Other primary cardiomyopathies Paroxysmal atrial fibrillation (HCC) Atrial fibrillation Idiopathic cardiomyopathy (HCC)- Primary Other primary cardiomyopathies Paroxysmal atrial fibrillation (HCC) Atrial fibrillation documented in this encounter Care Teams Landing Support Specialist Relationship Specialty Start Date End Date Roger Alexandra MD [address] [place] [address] PCP - General Family Medicine 12/29/19 documented as of this encounter
--- OUTSIDE RECORDS SUMMARY | 2023-07-25 04:17 | External Medical Summary | Summary of Care ---
Author Name Unknown Organization [facility] Address [address] [place] [facility] [place] [address] Phone [phone] Care Team Providers Care Ensemble Member Name Role Phone Roger Alexandra MD Primary Care Provider +1 [phone] Reason for Visit * Reason Onset Date Comments FYI 02/26/2023 Encounter Details Date Type Department Care Team Description 02/26/2023 Telephone Family Practice [facility] [address] [place] [address] Roger Alexandra MD [address] [place] [id number] FYI Allergies Active Allergy Reactions Severity Noted Date Comments Aspirin Unknown 12/12/2007 von Willebrand's disease Salicylates 03/01/2000 von Willebrand's disease documented as of this encounter (statuses as of 02/26/2023) Medications Medication Sig Dispensed Refills Start Date [...] PD, group D, by GOLD 2017 classification ([facility]),Chronic hypoxemic respiratory failure ([facility]) Use with nebulized meds 1 Each 0 09/16/2022 Active Full Kit Nebulizer SetIndications:COPD, group D, by GOLD 2017 classification ([facility] [...] Moderate. 180 Tablet 0 02/17/2023 Active Nystatin 856816 UNIT/GM External Powder (Nyamyc) apply to affected area twice a day 15 g 1 02/18/2023 Active LORazepam 0.5 MG Oral Tablet (Ativan) Take 1 Tablet by mouth every 8 hours as needed for Anxiety. 90 Tablet 1 02/24/2023 Active documented as of this encounter (statuses as of 02/26/2023) Active Problems Problem Noted Date Decreased functional [...] as of this encounter (statuses as of 02/26/2023) Resolved Problems Problem Noted Date Resolved Date [...] as of this encounter (statuses as of 02/26/2023) Immunizations Name Administration Dates Next Due H1N1 [...] Care Team Description 03/01/2023 Laboratory Laboratory Processing [facility] Home Draw [address] [place] [address] 03/01/2023 Telemedicine Psychiatry Hugo Alcantara MD [address] [place] [facility] [place] [address] 03/02/2023 [facility] 58 60 [facility] [place] [address] 03/11/2023 Office Visit Neurology Hina Lion PA-C [address] [place] [address] 03/16/2023 Office Visit Pulmonary Alisha Carrero CRNP [address] [place] [address] 03/17/2023 PulmDiagnostic Pulmonary Function [facility] Pft [address] [place] [address] 2023 Imaging Radiology 06/11/2023 Telemedicine Urology Juan José Walters MD [address] [place] [address] 07/07/2023 Office Visit Cardiology Jerry Pacheco DO [address] [place] [address] Scheduled Procedures Name Priority Associated Diagnoses Date/Ti [...] 02/16/2022 LUNG CANCER SCREENING - USE SMARTSET 03126 Completed 03/16/2022, 01/03/2017 Influenza Vaccine (FLU shot) [...] filedocumented as of this encounter Care Teams Ensemble Member Relationship Specialty Start Date End Date Roger Alexandra MD [address] [place] [address] PCP - General Family Medicine 12/29/19 documented as of this encounter
--- OUTSIDE RECORDS SUMMARY | 2023-07-25 04:17 | External Medical Summary | Summary of Care ---
Author Name Unknown Organization [facility] Address [address] [facility] [place] [address] Phone [phone] Care Team Providers Care Form Builder Helper Name Role Phone Roger Alexandra MD Primary Care Provider +1 [phone] Reason for Visit * Reason Comments Dosage Adjustment Via Phone (anticoag Cl inic) Encounter Details Date Type Department Care Team Description 03/02/2023 Anticoagulation Pharmacy Call Center [address] [place] [address] [facility] [address] [place] [address] Anticoagulation management encounter* Allergies Active Allergy Reactions Severity Noted Date Comments Aspirin Unknown 12/12/2007 von Willebrand's disease Salicylates 03/01/2000 von Willebrand's disease documented as of this encounter (statuses as of 03/02/2023) Medications Medication Sig Dispensed Refills Start Date [...] Moderate. 180 Tablet 0 02/17/2023 Active Nystatin 251263 UNIT/GM External Powder (Nyamyc) apply to affected area twice a day 15 g 1 02/18/2023 Active LORazepam 0.5 MG Oral Tablet (Ativan) Take 1 Tablet by mouth every 8 hours as needed for Anxiety. 90 Tablet 1 02/24/2023 Active documented as of this encounter (statuses as of 03/02/2023) Active Problems Problem Noted Date Decreased functional [...] as of this encounter (statuses as of 03/02/2023) Resolved Problems Problem Noted Date Resolved Date [...] 12/21/2008 Atrial septal aneurysm 02/04/2006 9 intermediate current use 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 0 [...] as of this encounter (statuses as of 03/02/2023) Immunizations Name Administration Dates Next Due H1N1 [...] as of this encounter Progress Notes * Vignesh Whitaker precinct commanding officer - 03/02/2023 2:14 PM EDT Contacts Type Contact Phone/Fax 03/02/2023 02:12 PM EDT Phone (Outgoing) Kimberly Kendall (Self) [phone] (M) Left Message PT/INR results, Coumadin dose instructions, and next PT/INR date communicated as noted by Pharmacist: Yes Vignesh Whitaker precinct commanding officer 03/02/2023, 2:14 PM * Kim Mercado RP - 03/02/2023 11:35 AM EDT Coumadin Clinic (region specific) Current Warfarin Dose As of 03/02/2023 Warfarin maintenance plan: 5 mg (5 mg x 1) every day INR Result As of 03/02/2023 INR goal: 2.0-3.0 INR used for dosin.5 (03/01/2023) Warfarin Plan As of 03/02/2023 Full warfarin instructions: 5 mg every day No change documented: Kim Mercado RPh Next INR check: 03/09/2023 Repeat PT/INR in 1 week(s) Weekly dose: not changed Additional Dosing Information: Description [facility] Also sent MyG after trying to call Tech to contact patient with dose instructions as noted. Kim Mercado RPh 03/02/2023, 11:35 AM documented in this encounter Plan of Treatment Upcoming Encounters Date Type Specialty Care Team Description 03/09/2023 Laboratory Laboratory Processing [facility], [facility] Mobile Home Draw [address] [place], [place] [id number] 03/09/2023 PulmDiagnostic Pulmonary Function [place], [address] [place] [address] 03/09/2023 Office Visit Pulmonary Juan Quintero MD [address] [place] [address] 03/10/2023 [facility] 58 60 [facility] [place] [address] 03/11/2023 Office Visit Neurology [facility] [address] [facility] [address] 03/22/2023 Telemedicine Psychiatry Hugo Alcantara MD [address] [facility] [place] [address] 2023 Imaging Radiology 06/11/2023 Telemedicine Urology Juan José Walters MD [address] [place] [address] 07/07/2023 Office Visit Cardiology Jerry Pacheco, DO [address] [place] [address] Scheduled Procedures Name Priority Associated Diagnoses Date/Ti [...] 02/16/2022 LUNG CANCER SCREENING - USE SMARTSET 44934 Completed 03/16/2022, 01/03/2017 Influenza Vaccine (FLU shot) [...] monitoring documented in this encounter Care Teams Form Builder Helper Relationship Specialty Start Date End Date Roger Alexandra MD [address] [place] [address] PCP - General Family Medicine 12/29/19 documented as of this encounter
--- OUTSIDE RECORDS SUMMARY | 2023-07-25 04:17 | External Medical Summary | Summary of Care ---
Author Name Unknown Organization [facility] Address [address] [place] [place] [address] Phone [phone] Care Team Providers Care Copra Processor Name Role Phone Roger Alexandra MD Primary Care Provider +1 [phone] Reason for Visit * Reason Onset Date Comments Health Maintenance 03/05/2023 Encounter Details Date Type Department Care Team Description 03/05/2023 Telephone Family Practice [facility] [address] [place] [address] Roger Alexandra MD [address] [place] [id number] Health Maintenance Allergies Active Allergy Reactions Severity Noted Date Comments Aspirin Unknown 12/12/2007 von Willebrand's disease Salicylates 03/01/2000 von Willebrand's disease documented as of this encounter (statuses as of 03/05/2023) Medications Medication Sig Dispensed Refills Start Date [...] PD, group D, by GOLD 2017 classification ([facility]),Chronic hypoxemic respiratory failure ([facility]) Use with nebulized meds 1 Each 0 09/16/2022 Active Full Kit Nebulizer SetIndications:COPD, group D, by GOLD 2017 classification ([facility] [...] (Lasix)Indications:C hronic diastolic CHF (congestive heart failure) ([facility]) take 1 tablet by mouth once [...] Anxiety. 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 current use 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 0 06/01/2005 [...] as of this encounter (statuses as of 03/05/2023) Immunizations Name Administration Dates Next Due H1N1 [...] encounter Miscellaneous Notes * Telephone Encounter - Katie Beyer LPN - 03/05/2023 11:05 AM EDT Care Gaps Comprehensive Care Outreach Last Office/Telemedicine Visit: 09/30/2022 (in office), 12/16/2022 (telemedicine) Next Office Visit: Visit date not found Hemoglobin AIC Results: Lab Results Component Value Date/Time HEMOGLOBIN A1C - [facility] 5.7 04/19/2014 12:08 PM HEMOGLOBIN A1C - [facility] 5.9 09/10/1999 04:45 PM HEMOGLOBIN A1C - [facility] 6.0 01/10/1999 11:30 AM Reviewed Health Maintenance below: Health Maintenance Topic Date Due COVID-19 Vaccine (1) Never done HIV Screening Never done Hepatitis C Screening Never done Pneumococcal Vaccine: Pediatrics (0 to 5 Years) and At-Risk Patients (6 to 64 Years) (2 - PCV) 03/20/2010 Zoster Vaccines (1 of 2) Never done DTaP,Tdap,and Td Vaccines (2 - Td or Tdap) 06/27/2018 Lipid Panel 09/25/2020 Depression, Most Recent Score >= 10 (will fire each visit until score < 10) 04/24/2021 *ADVANCE DIRECTIVE NOT ON FILE Never done Lipid already ordered Ov scheduled Care Gap Outreach Action Taken: Spoke to patient documented in this encounter Plan of Treatment Upcoming Encounters Date Type Specialty Care Team Description 03/09/2023 Laboratory Laboratory Processing [facility] [place] Draw [address] [facility] [id number] 03/09/2023 PulmDiagnostic Pulmonary Function [facility] Pft [address] [facility] [place] [address] 03/09/2023 Office Visit Pulmonary Juan Quintero MD [address] [place] [address] 03/10/2023 [facility] [address] [place] [address] 03/11/2023 Office Visit Neurology Hina Lion PA-C [address] [facility] [place] [address] 03/22/2023 Telemedicine Psychiatry Hugo Alcantara MD [address] [place] [address] 04/20/2023 Office Visit Family Medicine Roger Alexandra MD [address] [place] [address] 2023 Imaging Radiology 06/11/2023 Telemedicine Urology Juan José Walters MD [address] [place] [id number] 07/07/2023 Office Visit Cardiology Jerry Pacheco DO [address] [place] [address] Scheduled Procedures Name Priority Associated Diagnoses Date/Ti [...] 02/16/2022 LUNG CANCER SCREENING - USE SMARTSET 41407 Completed 03/16/2022, 01/03/2017 Influenza Vaccine (FLU shot) [...] filedocumented as of this encounter Care Teams Copra Processor Relationship Specialty Start Date End Date Roger Alexandra MD [address] [facility] [place] [address] PCP - General Family Medicine 12/29/19 documented as of this encounter
--- OUTSIDE RECORDS SUMMARY | 2023-07-25 04:17 | External Medical Summary | Summary of Care ---
Author Name Unknown Organization [facility] Address [address] [place] [address] Phone [phone] Care Team Providers Care Concrete Crusher Loader Operator Name Role Phone Roger Alexandra MD Primary Care Provider +1 -[phone] Reason for Visit * Reason Comments case management Encounter Details Date Type Department Care Team Description 03/03/2023 Fur Cutting Machine Operator Ancillary [facility] [address] [place] [address] Yara Morris, RN Medical home patient encounter* [...] Anxiety. 90 Tablet 1 02/24/2023 Active Nystatin 514281 UNIT/GM External Powder (Nyamyc) apply to affected [...] Progress Notes * Yara Morris RN - 03/03/2023 4:09 PM EDT MyG message received from patient, she would like to be set up with [facility] for heart failure monitoring. documented in this encounter Plan of Treatment Upcoming Encounters Date Type Specialty Care Team Description 03/09/2023 Laboratory Laboratory Processing [facility] Mobile Home Draw [address] [place] [address] 03/09/2023 PulmDiagnostic Pulmonary Function [place], Pft [address] [place] [address] 03/09/2023 Office Visit Pulmonary Juan [facility]inter[facility] MD [address] [facility] [id number] 03/10/2023 Anticoagulation Pharmacy Telepharmacy, [facility] [address] [place] [address] 03/11/2023 Office Visit Neurology Hina Lion PA-C [address] [place] [address] 03/22/2023 Telemedicine Psychiatry Hugo Alcantara MD [address] [place] [address] 2023 Imaging Radiology 06/11/2023 Telemedicine Urology Juan José Walters MD [address] [place] [address] 07/07/2023 Office Visit Cardiology Jerry Pacheco, DO [address] [facility] [place] [address] Scheduled Procedures Name Priority Associated Diagnoses Date/Ti [...] 02/16/2022 LUNG CANCER SCREENING - USE SMARTSET 99135 Completed 03/16/2022, 01/03/2017 Influenza Vaccine (FLU shot) [...] examination documented in this encounter Care Teams Concrete Crusher Loader Operator Relationship Specialty Start Date End Date Roger Alexandra MD [address] [place] [address] PCP - General Family Medicine 12/29/19 documented as of this encounter
--- OUTSIDE RECORDS SUMMARY | 2023-07-25 04:17 | External Medical Summary | Summary of Care ---
Author Name Unknown Organization [facility] Address [address] [facility] [address] Phone [phone] Care Team Providers Care Java Development Manager Name Role Phone Roger Alexandra MD Primary Care Provider +1 -[phone] Reason for Visit * Reason Comments Dosage Adjustment Via Phone (anticoag Cl inic) Encounter Details Date Type Department Care Team Description 02/22/2023 Anticoagulation Pharmacy Call Center [address] [place] [address] [facility] [address] [place] [address] control engineer current use 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* Allergies Active [...] Moderate. 180 Tablet 0 02/17/2023 Active Nystatin 415636 UNIT/GM External Powder (Nyamyc) apply to affected [...] of this encounter Progress Notes * Dottie Eli, [facility] - 02/23/2023 1:16 PM EDT Spoke with patient and explained INR likely low yesterday from holds the previous week. Pt notes tome she took 5 mg last night. I advised her to take 7.5 mg tonight then resume her usual dose of 5 mg daily. INR on 03/01/23. Pt expressed understanding and no further questions/concerns at this time. Thanks, Dottie Eli, PharmD Clinical Pharmacist 02/23/2023 1:20 PM * Kim Mercado RP - 02/22/2023 3:35 PM EDT 02/22/2023 03:33 PM EDT by Kim Mercado RPh 02/22/2023 03:33 PM EDT by Kim Mercado RPh Outgoing Kimberly Kendall (Self) Remove - Left Message Called to discuss pt proposed skipping a day or 2. Advised importance of compliance and keeping open communication with [facility] about what dose she has been taking or missed doses. INR was elevated last week, [facility] held 3 doses. INR drawn today reflective of only 2 doses of Warfarin. Advised to be more conservative to only take 7.5mg today (instead of originally planned 10mg) then 5mg daily with repeat PT/INR in 1 week. Kim Mercado [facility], Pharm.D. Clinical Pharmacist Telepharmacy [phone] 02/22/2023,3:37 PM * RUFINA Vela - 02/22/2023 1:24 PM EDT Contacts Type Contact Phone/Fax 02/22/2023 01:13 PM EDT Phone (Outgoing) Kimberly Kendall (Self) [phone] (M) Patient Findings Positives: Other complaints (This pt wants to try skipping a day or 2. She states that her when herlevels go low like today the next time is always very high. She wants to know if you can make an adjustment? Please call her. No [facility] available when pt was holding.) Negatives: Signs/symptoms of thrombosis, Signs/symptoms of bleeding, [...] as noted by Pharmacist: Yes RUFINA Vela 02/22/2023, 1:24 PM * Kim Mercado RPh - 02/22/2023 1:05 PM EDT Images from the original note were not included. Coumadin Clinic (region specific) Current Warfarin Dose As of 02/22/2023 Warfarin maintenance plan: 5 mg (5 mg x 1) every day INR Result As of 02/22/2023 INR goal: 2.0-3.0 INR used for dosin.2 (02/22/2023) Warfarin Plan As of 02/22/2023 Full warfarin instructions: 02/22: 10 mg; Otherwise 5 mg every day Next INR check: 03/01/2023 Repeat PT/INR in 1 week(s) Weekly dose: not changed Additional Dosing Information: Description [facility] Also sent MyG after trying to call Tech to contact patient with dose instructions as noted. Kim Mercado RPh 02/22/2023, 1:08 PM documented in this encounter Plan of Treatment Upcoming Encounters Date Type Specialty Care Team Description 03/01/2023 Laboratory Laboratory Processing c, [facility] Mobile Home Draw [address] [place] [address] 03/01/2023 Telemedicine Psychiatry Hugo Alcantara MD [address] [place] [address] 03/02/2023 [facility] [address] [address] [place] [address] 03/11/2023 Office Visit Neurology Hina Lion PA-C [address] [place] [address] 03/16/2023 Office Visit Pulmonary Alisha Carrero CRNP [address] [place] [address] 03/17/2023 PulmDiagnostic Pulmonary Function [place], [address] [place] [address] 2023 Imaging Radiology 06/11/2023 Telemedicine Urology Juan José Walters MD [address] [place] [address] 07/07/2023 Office Visit Cardiology Jerry Pacheco, [address] [place] [address] Scheduled Procedures Name Priority Associated Diagnoses Date/Ti [...] NOT ON FILE 02/16/2022 Mammogram 09/04/2023 09/04/2022, 1202/2015, 04/27/2014, Additional history exists O2 ASSESSMENT COMPLETED IN PAST YEAR FOR COPD 12/17/2023 12/17/2022 Diabetes Screening 10/23/2025 10/23/2022, 0 01/15/2022, 01/08/2022, Additional history exists COLONOSCOPY-EVERY 5 YRS AGES 18-100 01/14/2028 01/13/2023, 11/12/2020, 05/22/2013, Additional history exists Alpha-1 Antitrypsin Completed 02/16/2022 LUNG CANCER SCREENING - USE SMARTSET 13984 Completed 03/16/2022 Influenza Vaccine (FLU shot) Completed [...] as of this encounter Visit Diagnoses Diagnosis nursing home current use 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- Primary documented in this encounter Care Teams Java Development Manager Relationship Specialty Start Date End Date Roger Alexandra MD [address] [place] [address] PCP - General Family Medicine 12/29/19 documented as of this encounter
--- OUTSIDE RECORDS SUMMARY | 2023-07-25 04:17 | External Medical Summary | Summary of Care ---
Author Name Unknown Organization [facility] Address [address] [facility] [place] [address] Phone [phone] Care Team Providers Care Veneer Jointer Name Role Phone Jeevan Mclean MD Primary Care Provider [phone] Reason for Visit * Reason Onset Date Comments Medication Refill 03/02/2023 Encounter Details Date Type Department Care Team Description 03/02/2023 Refill [facility] [address] [place] [address] Jeevan Mclean MD [address] [place] [id number] Allergies Active Allergy Reactions Severity Noted Date [...] 90 Tablet 3 02/16/2022 Active oxygen IN GASIndications:Computer Technology Trainer 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 respiratory failure (HCC),COPD, group D, [...] OPD, group D, by GOLD 2017 classification ([facility]),Chronic hypoxemic respiratory failure ([facility]) Use with nebulized meds 1 Each 0 09/16/2022 Active Full Kit Nebulizer SetIndications:COPD , group D, by GOLD 2017 classification ([facility]),Chronic hypoxemic respiratory failure ([facility]) Use with nebulizer 1 [...] Anxiety. 90 Tablet 1 02/24/2023 Active Nystatin 837423 UNIT/GM External Powder (Nyamyc) apply to affected area twice a day 15 g 1 03/03/2023 Active Nystatin 419508 UNIT/GM External Powder (Nyamyc) apply to affected area twice a day 15 g 1 02/18/2023 3 Discontinu ed(Refill) Hospital, Clinic, or Other Facility Administered Medication Ordered Dose Route Frequency Start Date End Date Status Albuterol Sulfate (Proventil) (2.5 MG/3ML) 0.083% inhalation solution 2.5 mgIndications:COPD, group D, by GOLD 2017 classification ([facility]) 2.5 mg NEBULIZER PRN [...] 02/04/2006 12/21/2008 Atrial septal aneurysm 02/04/2006 9 geriatric care manager current use 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 0 [...] Telephone Encounter - Jeevan Mclean MD - 03/03/2023 3:12 PM EDTSigned Prescriptions: Disp Refills Nystatin 177732 UNIT/GM External Powder (N*15 g 1 Sig: apply to affected area twice a day Authorizing Provider: JEEVAN MCLEAN * Telephone Encounter - Sharmaine Salazar RPh - 03/03/2023 1:13 PM EDT Pending Prescriptions: Disp Refills Nystatin 070546 UNIT/GM External Powder (N*15 g 1 Sig: apply to affected area twice a day * Telephone Encounter - Sharmaine Salazar RPh - 03/03/2023 1:12 PM EDT Patient requesting larger bottle. Please modify script to 30g or 60g size if indicated. [facility] to approve refills for the pended medication(s) per refillprotocol. Please approve if appropriate. Thank you, Sharmaine Salazar, PharmD Staff Pharmacist [facility] 03/03/23 1:13 PM [phone] documented in this encounter Plan of Treatment Upcoming Encounters Date Type Specialty Care Team Description 03/09/2023 Laboratory Laboratory Processing [facility], [facility] Mobile Home Draw [address] [place] [address] 03/09/2023 PulmDiagnostic Pulmonary Function Cory, Pft [address] [place] [address] 03/09/2023 Office Visit Pulmonary [facility]inter[facility] [address] [facility] [address] 03/10/2023 [facility] [address] [place] [address] 03/11/2023 Office Visit Neurology Hina Lion PA-C [address] [place] [address] 03/22/2023 Telemedicine Psychiatry Hugo Alcantara MD [address] [place] [address] 2023 Imaging Radiology 06/11/2023 Telemedicine Urology Juan José Watlers MD [address] [place] [id number] 07/07/2023 Office Visit Cardiology Jerry Pacheco, DO [address] [place] [address] Scheduled Procedures Name Priority Associated Diagnoses Date/Ti [...] 02/16/2022 LUNG CANCER SCREENING - USE SMARTSET 15072 Completed 03/16/2022, 01/03/2017 Influenza Vaccine (FLU shot) [...] filedocumented as of this encounter Care Teams Veneer Jointer Relationship Specialty Start Date End Date Jeevan Mclean MD [address] [place] [address] PCP - General Family Medicine 12/29/19 documented as of this encounter
--- OUTSIDE RECORDS SUMMARY | 2023-07-25 04:17 | External Medical Summary | Summary of Care ---
Author Name Unknown Organization [facility] Address [address] [facility] [address] Phone [phone] Care Team Providers Care Dump Worker Name Role Phone Roger Alexandra MD Primary Care Provider [phone] Reason for Visit * Reason Onset Date Comments Advice 03/01/2023 [facility] Home Health Encounter Details Date Type Department Care Team Description 03/01/2023 Telephone Family Practice [facility] [address] [place] [address] Roger Alexandra MD [address] [place] [address] Advice ([facility] Home Health) Allergies Active Allergy Reactions Severity [...] D, by GOLD 2017 classification ([facility]),Chronic hypoxemic respiratory failure ([facility]) Use with nebulized meds 1 Each 0 09/16/2022 Active Full Kit Nebulizer SetIndications:COPD, group D, by GOLD 2017 classification ([facility]),Chronic hypoxemic respiratory failure ([facility]) Use with nebulizer 1 Each 0 [...] Morris RN - 03/01/2023 11:11 AM EDT Aircrmg message sent to patient. * Telephone Encounter - Roger Alexandra MD - 03/01/2023 10:42 AM EDT Noted. As per usual, I recommend she be compliant with her treatment. Not much more I can offer in the way of advice here. * Telephone Encounter - Mónica Kurtz LPN - 03/01/2023 10:29 AM EDT Se calling from [facility]. She has a weight increase of 3 [...] 10:25 AM EDT Reason for patient's call: [facility] Home Health to discuss weight increase Caller was transferred to [facility] at the nurse line. documented in this encounter Plan of Treatment Upcoming Encounters Date Type Specialty Care Team Description 03/09/2023 Laboratory Laboratory Processing [facility] Mobile Home Draw [address] [place], [place] [id number] 03/09/2023 PulmDiagnostic Pulmonary Function Ava, Pft [address] [facility] [place] [address] 03/09/2023 Office Visit Pulmonary Juan Quintero MD [address] [facility] [place] [address] 03/10/2023 [facility] Telepharmacy, [facility] [address] [facility] [place] [address] 03/11/2023 Office Visit Neurology [facility] [address] [facility] [address] 03/22/2023 Telemedicine Psychiatry Hugo Alcantara MD [address] [place] [address] 2023 Imaging Radiology 06/11/2023 Telemedicine Urology Juan José Walters MD [address] [place] [address] 07/07/2023 Office Visit Cardiology Jerry Pacheco, DO [address] [place] [address] Scheduled Procedures Name Priority Associated Diagnoses Date/Ti [...] 02/16/2022 LUNG CANCER SCREENING - USE SMARTSET 99987 Completed 03/16/2022, 01/03/2017 Influenza Vaccine (FLU shot) [...] filedocumented as of this encounter Care Teams Dump Worker Relationship Specialty Start Date End Date Roger Alexandra MD [address] [facility] [place] [address] PCP - General Family Medicine 12/29/19 documented as of this encounter
--- OUTSIDE RECORDS SUMMARY | 2023-07-25 04:17 | External Medical Summary | Summary of Care ---
Author Name Unknown Organization [facility] Address [address] [place] [address] Phone [phone] Care Team Providers Care Telephone Clerk Telegraph Office Name Role Phone Roger Alexandra MD Primary Care Provider [phone] Reason for Visit * - Authorized Specialty Diagnoses / Procedures Referred By Contac t Referred To Contact Referral ID Status Reason Start Date Expiration Date V isits Requested Visits Authorized [id number] Authorized 06/15/2022 06/14/2023 999 999 Encounter Details Date Type Department Care Team Description 03/01/2023 Telemedicine Psychiatry, [facility] [address] [place] [address] Hugo Alcantara MD [address] [place] [address] No Show for psych appt* Allergies Active Allergy Reactions Severity Noted Date [...] PD, group D, by GOLD 2017 classification ([facility]),Chronic hypoxemic respiratory failure ([facility]) Use with nebulized meds 1 Each 0 09/16/2022 Active Full Kit Nebulizer SetIndications:COPD, group D, by GOLD 2017 classification ([facility] [...] Moderate. 180 Tablet 0 02/17/2023 Active Nystatin 449454 UNIT/GM External Powder (Nyamyc) apply to affected [...] Progress Notes * Hugo Alcantara MD - 03/01/2023 2:31 PM EDT Patient failed to keep appointment. documented in this encounter Plan of Treatment Upcoming Encounters Date Type Specialty Care Team Description 03/02/2023 [facility] [address] [facility] [place] [address] 03/11/2023 Office Visit Neurology Hina Lion PA-C [address] [facility] [address] 03/16/2023 Office Visit Pulmonary Alisha Carrero CRNP [address] [place] [address] 03/17/2023 PulmDiagnostic Pulmonary Function [place], Pft [address] [place] [address] 2023 Imaging Radiology 06/11/2023 Telemedicine Urology Juan José Walters MD [address] [place] [id number] 07/07/2023 Office Visit Cardiology Jerry Pacheco DO [address] [place] [address] Scheduled Procedures Name Priority Associated Diagnoses Date/Ti [...] 02/16/2022 LUNG CANCER SCREENING - USE SMARTSET 13[address] Completed 03/16/2022, 01/03/2017 Influenza Vaccine (FLU shot) [...] as of this encounter Visit Diagnoses Diagnosis No Show for psych appt- Primary documented in this encounter Care Teams Telephone Clerk Telegraph Office Relationship Specialty Start Date End Date Roger Alexandra MD [address] [place] [address] PCP - General Family Medicine 12/29/19 documented as of this encounter
--- OUTSIDE RECORDS SUMMARY | 2023-07-25 04:17 | External Medical Summary | Summary of Care ---
Author Name Unknown Organization [facility] Address [address] [place] [address] Phone [phone] Care Team Providers Care Fitness Specialist Name Role Phone Roger Alexandra MD Primary Care Provider [phone] Reason for Visit * Reason Onset Date Comments Med Request 03/08/2023 Encounter Details Date Type Department Care Team Description 03/08/2023 Telephone Family Practice [facility] [address] [place] [address] Yara Morris, RN Med Request Allergies Active Allergy Reactions Severity Noted Date Comments Aspirin Unknown 12/12/2007 von Willebrand's disease Salicylates 03/01/2000 von Willebrand's disease documented as of this encounter (statuses as of 03/08/2023) Medications Medication Sig Dispensed Refills Start Date End Date Status Warfarin Sodium 5 MG Oral Tablet (Coumadin)Indicatio ns:Paroxysmal atrial fibrillation (HCC) Take by mouth 1 Tablet in the evening. OR As directed by coumadin clinic. 90 Tablet 3 2 Active oxygen IN GASIndications:Gut Dropper 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 respiratory failure (HCC),COPD, group D, [...] D, by GOLD 2017 classification ([facility]),Chronic hypoxemic respiratory failure ([facility]) Use with nebulized meds 1 Each 0 2 Active Full Kit Nebulizer SetIndications:COPD , group D, by GOLD 2017 classification ([facility]),Chronic hypoxemic respiratory failure ([facility]) Use with nebulizer 1 Each 0 2 Active ProAir HFA 108 (90 Base) MCG/ACT Inhalation Aerosol SolutionIndications :Bronchitis, complicated Inhale 2 Puffs by mouth in the morning and 2 Puffs at noon and 2 Puffs in the evening and 2 Puffs before bedtime. 18 g 1 2 Active Ipratropium-Albuter ol 0.5-2.5 (3) MG/3ML Inhalation Solution (Duoneb) Inhale 3 mL by mouth every 6 hours as needed for Wheezing. 90 mL 3 2 Active Potassium Chloride ER 10 MEQ Oral Capsule Extended Release Take 1 Capsule (10 mEq) by mouth in the morning and 1 Capsule (10 mEq) before bedtime. 60 Capsule 5 2 Active Omeprazole 20 MG Oral Capsule [...] the morning. 30 Tablet 11 3 Active Fluticasone-Salmete rol 115-21 MCG/ACT Inhalation Aerosol (Advair Hfa) Inhale 2 Puffs by mouth in the morning and 2 Puffs before bedtime. 12 g 12 3 Active Mirtazapine 30 MG Oral Tablet [...] the morning. 30 Tablet 6 3 Active Baclofen 10 MG Oral Tablet [...] diastolic CHF (congestive heart failure) ([facility]) take 1 tablet by mouth once [...] Anxiety. 90 Tablet 1 3 Active Nystatin 464418 UNIT/GM External Powder (Nyamyc) apply to affected area twice a day 60 g 1 3 Active Nystatin 568700 UNIT/GM External Powder (Nyamyc) apply to affected area twice a day 15 g 1 3 03/08/20 23 Discontinued Hospital, Clinic, or Other Facility Administered Medication Ordered Dose Route Frequency Start Date End Date Status Albuterol Sulfate (Proventil) (2.5 MG/3ML) 0.083% inhalation solution 2.5 mgIndications:COPD, group D, by GOLD 2017 classification ([facility]) 2.5 mg NEBULIZER PRN 03/03/2023 03/02/2024 Acti ve Albuterol Sulfate (Proventil) (5 MG/ML) 0.5% *conc* inhalation solution 2.5 mgIndications:COPD, group D, by GOLD 2017 classification (HCC) 2.5 mg NEBULIZER PRN 03/03/2023 03/02/2024 Acti ve documented as of this encounter (statuses as of 03/08/2023) Active Problems Problem Noted Date Decreased functional [...] as of this encounter (statuses as of 03/08/2023) Resolved Problems Problem Noted Date Resolved Date [...] as of this encounter (statuses as of 03/08/2023) Immunizations Name Administration Dates Next Due H1N1 [...] Telephone Encounter - Yara Morris RN - 03/08/2023 2:55 PM EDT Case management Progress note S: patient called in to report that she will Not be home for her mobile lab draw tomorrow as she has an appointment in pul. She has not yet received her scale, is at baseline SOB. Having headaches. Running out of Nystatin poweder for under her abdomen sooner than refill bottles allow, wondering ifthere are larger sized bottles available. O: Phone call follow up A: Alert and oriented P: Reinforce [facility] scale- if any trouble hooking up device notify CM. Message sent to mobile phlebotomy to cancel tomorrows lab draw. documented in this encounter Plan of Treatment Upcoming Encounters Date Type Specialty Care Team Description 03/09/2023 PulmDiagnostic Pulmonary Function [place], Pft [address] [place] [address] 03/09/2023 Office Visit Pulmonary Juan Quintero MD [address] [facility] [address] 03/10/2023 [facility] [address] [place] [address] 03/11/2023 Office Visit Neurology Hina Lion PA-C [address] [place] [address] 03/22/2023 Telemedicine Psychiatry Hugo Alcantara MD [address] [place] [address] 04/20/2023 Office Visit Family Medicine Roger Alexandra MD [address] [place] [address] 2023 Imaging Radiology 06/11/2023 Telemedicine Urology Juan José Walters MD [address] [place] [address] 07/07/2023 Office Visit Cardiology Jerry Pacheco, DO [address] [place] [address] Scheduled Procedures Name Priority Associated Diagnoses Date/Ti [...] 02/16/2022 LUNG CANCER SCREENING - USE SMARTSET 68058 Completed 03/16/2022, 01/03/2017 Influenza Vaccine (FLU shot) [...] filedocumented as of this encounter Care Teams Fitness Specialist Relationship Specialty Start Date End Date Roger Alexandra MD [address] [place] [address] PCP - General Family Medicine 12/29/19 documented as of this encounter
--- OUTSIDE RECORDS SUMMARY | 2023-07-25 04:17 | External Medical Summary ---
Author Name Unknown Address Unknown Organization [facility] [address] [place] [address] Laboratory Report Ordering Provider Test Date Status SUMAN STANFORD 03/01/2023 11:32:32 Final Observation Date Value Abnormality Reference (Units ) Status PT 03/01/2023 11:32:32 27.3 Above high normal 11 .6-15.2 (seconds) Final INR 03/01/2023 11:32:32 2.5 Above high normal 0. 8-1.2 Final Performing Location [facility] [address] [place] [address]
--- OUTSIDE RECORDS SUMMARY | 2023-07-25 04:18 | External Medical Summary | Summary of Care ---
Author Name Unknown Organization [facility] Address [address] [place] [address] Phone [phone] Care Team Providers Care Test Consultant Name Role Phone Roger Alexandra MD Primary Care Provider [phone] Reason for Visit * Reason Onset Date Comments case management 02/15/2023 Encounter Details Date Type Department Care Team Description 02/15/2023 Automatic Coin Machine Mechanic Telephone Family [facility] [address] [place] [address] Yara Morris, project management Allergies Active Allergy Reactions Severity Noted Date Comments Aspirin Unknown 12/12/2007 von Willebrand's disease Salicylates 03/01/2000 von Willebrand's disease documented as of this encounter (statuses as of 02/15/2023) Medications Medication Sig Dispensed Refills Start Date [...] PD, group D, by GOLD 2017 classification ([facility]),Chronic hypoxemic respiratory failure ([facility]) Use with nebulized meds 1 Each 0 09/16/2022 Active Full Kit Nebulizer SetIndications:COPD, group D, by GOLD 2017 classification ([facility]),Chronic hypoxemic respiratory failure ([facility]) Use with nebulizer 1 Each 0 09/16/2022 [...] mouth daily 30 Tablet 5 01/11/2023 Active Furosemide 20 MG Oral Tablet (Lasix)Indications:C hronic diastolic CHF (congestive heart failure) (HCC) take 1 tablet by mouth once daily if needed for LOWER LEG SWELLING 30 Tablet 0 01/14/2023 Active traMADol HCl 50 MG Oral Tablet (Ultram)Indications: Chronic bilateral low back pain without sciatica take 2 tablets by mouth every 8 hours if needed for moderate pain 180 Tablet 0 01/20/2023 Active Solifenacin Succinate 10 MG Oral Tablet (VESIcare) Take 1 Tablet by mouth in the morning. 30 Tablet 6 01/26/2023 Active Nystatin 159307 UNIT/GM External Powder (Nyamyc) apply to affected area twice a day 15 g 1 01/29/2023 Active Baclofen 10 MG Oral Tablet (Lioresal)Indication s:Chronic bilateral low back pain without sciatica Take 1 Tablet by mouth 3 times a day as needed for Muscle spasms. 90 Tablet 0 02/04/2023 Active Nitrofurantoin Monohyd Macro 100 MG Oral Capsule (Macrobid) Take 1 Capsule by mouth in the morning and 1 Capsule before bedtime. With food.. 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 Agreed and they will fax an order for Dr. Alexandra to sign. documented in this encounter Plan of Treatment Upcoming Encounters Date Type Specialty Care Team Description 02/15/2023 Laboratory Laboratory Processing [facility] [place] [place] Draw [address] [place] [address] Paroxysmal atrial fibrillation (HCC) 02/16/2023 [facility] [address] [place] [address] 03/01/2023 Telemedicine Psychiatry Hugo Alcantara MD [address] [place] [address] 03/11/2023 Office Visit Neurology Hina Lion PA-C [address] [facility] [address] 03/16/2023 Office Visit Pulmonary Alisha Carrero CRNP [address] [place] [address] 03/17/2023 PulmDiagnostic Pulmonary Function [place], Pft [address] [place] [address] 2023 Imaging Radiology 06/11/2023 Telemedicine Urology Juan José Walters MD [address] [place] [id number] 07/07/2023 Office Visit Cardiology Jerry Pacheco DO [address] [place] [address] Scheduled Procedures Name Priority Associated Diagnoses Date/Ti [...] 02/16/2022 LUNG CANCER SCREENING - USE SMARTSET [address] Completed 03/16/2022 Influenza Vaccine (FLU shot) Completed [...] filedocumented as of this encounter Care Teams Test Consultant Relationship Specialty Start Date End Date Roger Alexandra MD [address] [place] [address] PCP - General Family Medicine 12/29/19 documented as of this encounter
--- OUTSIDE RECORDS SUMMARY | 2023-07-25 04:18 | External Medical Summary | Summary of Care ---
Author Name Unknown Organization [facility] Address [address] [place] [address] Phone [phone] Care Team Providers Care Precision Thread Grinder Operator Name Role Phone Roger Alexandra MD Primary Care Provider [phone] [phone] Reason for Visit * Reason Comments Dosage Adjustment Via Phone (anticoag Cl inic) Encounter Details Date Type Department Care Team Description 02/16/2023 Anticoagulation Pharmacy Call Center 58[address] [facility] [place] [address] [facility] [address] [place] [address] Anticoagulation management encounter* Allergies Active Allergy Reactions Severity Noted Date Comments Aspirin Unknown 12/12/2007 von Willebrand's disease Salicylates 03/01/2000 von Willebrand's disease documented as of this encounter (statuses as of 02/16/2023) Medications Medication Sig Dispensed Refills Start Date [...] D, by GOLD 2017 classification ([facility]),Chronic hypoxemic respiratory failure ([facility]) Use with nebulized meds 1 Each 0 09/16/2022 Active Full Kit Nebulizer SetIndications:COPD, group D, by GOLD 2017 classification ([facility]),Chronic hypoxemic respiratory failure ([facility]) Use with nebulizer 1 Each 0 09/16/2022 [...] mouth daily 30 Tablet 5 01/11/2023 Active traMADol HCl 50 MG Oral Tablet (Ultram)Indications: Chronic bilateral low back pain without sciatica take 2 tablets by mouth every 8 hours if needed for moderate pain 180 Tablet 0 01/20/2023 Active Solifenacin Succinate 10 MG Oral Tablet (VESIcare) Take 1 Tablet by mouth in the morning. 30 Tablet 6 01/26/2023 Active Nystatin 162123 UNIT/GM External Powder (Nyamyc) apply to affected [...] LEG SWELLING 30 Tablet 1 02/16/2023 Active documented as of this encounter (statuses as of 02/16/2023) Active Problems Problem Noted Date Decreased functional [...] as of this encounter (statuses as of 02/16/2023) Resolved Problems Problem Noted Date Resolved Date [...] as of this encounter (statuses as of 02/16/2023) Immunizations Name Administration Dates Next Due H1N1 [...] as of this encounter Progress Notes * Xenia Sheppard, securities counselor - 02/16/2023 2:51 PM EDT Contacts Type Contact Phone/Fax 02/16/2023 02:47 PM EDT Phone (Outgoing) Kimberly Kendall (Self) [phone] (M) Patient Findings Positives: Signs/symptoms of bleeding (Pt reports nose bleed last night. Says it lasted 5-10 minutes and she was able to get it to stop.) Negatives: Change in health, Change in activity, Upcoming invasive procedure, Missed doses, Extra doses, Change in medications, Change in diet/appetite, Bruising Nose bleeds: Patient reports experiencing nose [...] bedtime; use humidifier; do not pick/blow nose. Advised patient to contact Anticoagulation Clinic if any unusual bruising or bleeding, recent illness, changes in medication, or questions/concerns. PT/INR results, Coumadin dose instructions, and next PT/INR date communicated as noted by Pharmacist: Yes DANIEL Solares 02/16/2023, 2:51 PM * Piedad Craft RPh - 02/16/2023 10:36 AM EDT Images from the original note were not included. Coumadin Clinic (region specific) Current Warfarin Dose As of 02/16/2023 Warfarin maintenance plan: 5 mg (5 mg x 1) every day INR Result As of 02/16/2023 INR goal: 2.0-3.0 INR used for dosin.2 (02/15/2023) Warfarin Plan As of 02/16/2023 Full warfarin instructions: 4/4: Hold; 4/5: Hold; 4/6: Hold; Otherwise 5 mg every day Next INR check: 02/22/2023 I sent MyG Repeat PT/INR in 1 week(s) Weekly dose: not changed Additional Dosing Information: Description [facility] Also sent MyG after trying to call 01/13/23 - [employer] to contact patient with dose instructions as noted. Piedad Craft RPh 02/16/2023, 10:36 AM documented in this encounter Plan of Treatment Upcoming Encounters Date Type Specialty Care Team Description 02/22/2023 Laboratory [facility] Processing [facility] Draw [address] [place] [address] 02/23/20[facility] [address] [place] [address] 03/01/2023 Telemedicine Psychiatry Hugo Alcantara MD [address] [place] [address] 03/11/2023 Office Visit Neurology Hina Lion PA-C [address] [place] [address] 03/16/2023 Office Visit Pulmonary Alisha Carrero CRNP [address] [place] [address] 03/17/2023 PulmDiagnostic Pulmonary Function [place], [facility] [address] [place] [address] 2023 Imaging Radiology 06/11/2023 Telemedicine Urology Juan José Walters MD [address] [place] [address] [place] [address] 07/07/2023 Office Visit Cardiology Jerry Pacheco DO [address] [place] [id number] Scheduled Procedures Name Priority Associated Diagnoses Date/Ti [...] 02/16/2022 LUNG CANCER SCREENING - USE SMARTSET 58117 Completed 03/16/2022 Influenza Vaccine (FLU shot) Completed [...] monitoring documented in this encounter Care Teams Precision Thread Grinder Operator Relationship Specialty Start Date End Date Roger Alexandra MD [address] [place] [address] PCP - General Family Medicine 12/29/19 documented as of this encounter
--- OUTSIDE RECORDS SUMMARY | 2023-07-25 04:18 | External Medical Summary | Summary of Care ---
Author Name Unknown Organization [facility] Address [address] [place] [facility] [place] [address] Phone [phone] Care Team Providers Care Guest House Manager Name Role Phone Jeevan Mclean MD Primary Care Provider [phone] [phone] Reason for Visit * Reason Comments eRx-Medication Refill Encounter Details Date Type Department Care Team Description 02/15/2023 Refill Family Practice [facility] [address] [place] [address] Jeevan Mclean MD [address] [place] [...] 90 Tablet 3 2 Active oxygen IN GASIndications:Income Tax Adjuster 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 respiratory failure (HCC),COPD, group D, [...] HEALTH) Use with nebulizer 1 Each 0 2 [...] at bedtime. 45 Tablet 2 3 Active LORazepam 0.5 MG Oral Tablet (Ativan) Take 1 Tablet by mouth every 8 hours as needed for Anxiety. Do not start before December 25, 2022. 90 Tablet 1 3 Active busPIRone HCl 10 MG Oral Tablet (Buspar) Take 2 Tablets by mouth in the morning and 2 Tablets before bedtime. 120 Tablet 2 3 Active Isosorbide Mononitrate ER 30 MG Oral Tablet Extended Release 24 Hour (Imdur) take 1 tablet by mouth daily 30 Tablet 5 3 Active traMADol HCl 50 MG Oral Tablet (Ultram)Indications :Chronic bilateral low back pain without sciatica take 2 tablets by mouth every 8 hours if needed for moderate pain 180 Tablet 0 3 Active Solifenacin Succinate 10 MG Oral Tablet (VESIcare) Take 1 Tablet by mouth in the morning. 30 Tablet 6 3 Active Nystatin 184631 UNIT/GM External Powder (Nyamyc) apply to affected area twice a day 15 g 1 3 Active Baclofen 10 MG Oral [...] LEG SWELLING 30 Tablet 1 3 Active Furosemide 20 MG Oral Tablet (Lasix)Indications: Chronic diastolic CHF (congestive heart failure) (HCC) take 1 tablet by mouth once daily if needed for LOWER LEG SWELLING 30 Tablet 0 3 02/17/20 23 Discontinued documented as of this encounter (statuses as [...] encounter Miscellaneous Notes * Telephone Encounter - Jozef Maki, [facility] - 02/16/2023 10:17 AM EDTSigned Prescriptions: Disp Refills Furosemide 20 MG Oral Tablet (Lasix) 30 Tab*1 Sig: take 1 tabletby mouth once daily if needed for LOWER LEG SWELLINGAuthorizing Provider: JEEVAN MCLEAN User: JOZEF MAKI documented in this encounter Plan of Treatment Upcoming Encounters Date Type Specialty Care Team Description 03/01/2023 Telemedicine Psychiatry Hugo Alcantara MD [address] [place], [place] [id number] 03/11/2023 Office Visit Neurology Hina Lion PA-C [address] [place] [address] 03/16/2023 Office Visit Pulmonary Alisha Carrero CRNP [address] [place] [address] 03/17/2023 PulmDiagnostic Pulmonary Function [place], [facility] [address] [place] [address] 2023 Imaging Radiology 06/11/2023 Telemedicine Urology Juan José Walters MD [address] [facility] [address] [place] [id number] 07/07/2023 Office Visit Cardiology Jerry Pacheco DO [address] [place] [address] Scheduled Procedures Name Priority Associated Diagnoses Date/Ti [...] 02/16/2022 LUNG CANCER SCREENING - USE SMARTSET 52841 Completed 03/16/2022 Influenza Vaccine (FLU shot) Completed [...] failure documented in this encounter Care Teams Guest House Manager Relationship Specialty Start Date End Date Jeevan Mclean MD [address] [place] [address] PCP - General Family Medicine 12/29/19 documented as of this encounter
--- OUTSIDE RECORDS SUMMARY | 2023-07-25 04:18 | External Medical Summary | Summary of Care ---
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 [address] [facility] [place] [address] Yara Morris, pattern chain builder; case management Allergies Active Allergy Reactions Severity Noted Date Comments Aspirin Unknown 12/12/2007 von Willebrand's disease Salicylates 03/01/2000 von Willebrand's disease documented as of this encounter (statuses as of 02/09/2023) Medications Medication Sig Dispensed Refills Start Date [...] morning. 30 Tablet 6 01/26/2023 Active Nystatin 894029 UNIT/GM External Powder (Nyamyc) apply to affected [...] With food.. 14 Capsule 0 02/05/2023 Active Fluconazole 150 MG Oral Tablet (Diflucan) Take 1 Tablet by mouth once for 1 dose. May repeat in 3 days if continued symptoms. 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 * Telephone Encounter - Brittney Wilde DO - 02/09/2023 12:56 PM EDT rx for diflucan sent rec f/u if sx don't improve Thanks! 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 She is still experiencing symptoms. Also now having perineal itching. Does not notice any white discharge but states "I have so much going on all thetime, its hard to tell". O: Phone call follow up A: alert and oriented x 3 P: Reviewed results message from urologist, Inform patient abx was sent to her pharmacy. Encourageddrinking water with uti. Report any worsening of itching or if develops any other symptoms such as discharge. Message sent to covering provider for Dr. Alexandra to ask if diflucan would be appropriate for symptoms. Patient cannot recall if she ever had to use this in the past. Dr. Wilde, Patient with urinary incontinence and frequent uti's. Wears urinary briefs as well as pads. Now with perineal itching. Would it be appropriate to send diflucan to take with the abx, prescribed by uro? Thank you! documented in this encounter Plan of Treatment Upcoming Encounters Date Type Specialty Care Team Description 02/11/2023 Laboratory Laboratory Processing [facility] Mobile Home Draw [address] [place], [place] [id number] 02/12/2023 [facility] [address] [place] [address] 03/01/2023 Telemedicine Psychiatry Hugo Alcantara MD [address] [place] [address] 03/11/2023 Office Visit Neurology Hina Lion PA-C [address] [place] [address] 03/16/2023 Office Visit Pulmonary Alisha Carrero CRNP [address] [place] [address] 03/17/2023 PulmDiagnostic Pulmonary Function [place], [facility] [address] [place] [address] 2023 Imaging Radiology 06/11/2023 Telemedicine Urology Juan José Walters MD [address] [place] [address] [place] [id number] 07/07/2023 Office Visit Cardiology Jerry Pacheco DO [address] [place] [address] Scheduled Procedures Name Priority Associated Diagnoses Date/Ti [...] 02/16/2022 LUNG CANCER SCREENING - USE SMARTSET 11575 Completed 03/16/2022 Influenza Vaccine (FLU shot) Completed [...] filedocumented as of this encounter Care Teams Office Services Specialist Relationship Specialty Start Date End Date Roger Alexandra MD [address] [place] [address] PCP - General Family Medicine 12/29/19 documented as of this encounter
--- OUTSIDE RECORDS SUMMARY | 2023-07-25 04:18 | External Medical Summary | Summary of Care ---
Author Name Unknown Organization [facility] Address [address] [place] [address] Phone [phone] Care Team Providers Care Salon Professional Name Role Phone Jeevan Mclean MD Primary Care Provider [phone] [phone] Reason for Visit * Reason Onset Date Comments Medication Refill 02/16/2023 Encounter Details Date Type Department Care Team Description 02/16/2023 Refill Family [facility] [address] [place] [address] Jeevan Mclean MD [address] [place] [id number] Chronic bilateral low back pain without sciatica Allergies Active Allergy Reactions Severity Noted Date Comments Aspirin Unknown 12/12/2007 von Willebrand's disease Salicylates 03/01/2000 von Willebrand's disease documented as of this encounter (statuses as of 02/17/2023) Medications Medication Sig Dispensed Refills Start Date End Date Status Warfarin Sodium 5 MG Oral Tablet (Coumadin)Indicatio ns:Paroxysmal atrial fibrillation (HCC) Take by mouth 1 Tablet in the evening. OR As directed by coumadin clinic. 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 30 Tablet 6 01/26/2023 Active Nystatin 565432 UNIT/GM External Powder (Nyamyc) apply to affected area twice a day 15 g 1 01/29/2023 Active Baclofen 10 MG Oral Tablet (Lioresal)Indicatio [...] Pain, Moderate. 180 Tablet 0 02/17/2023 Active traMADol HCl 50 MG Oral Tablet (Ultram)Indications :Chronic bilateral low back pain without sciatica take 2 tablets by mouth every 8 hours if needed for moderate pain 180 Tablet 0 01/20/2023 3 Discontinu ed(Refill) documented as of this encounter (statuses as of 02/17/2023) Active Problems Problem Noted Date Decreased functional [...] as of this encounter (statuses as of 02/17/2023) Resolved Problems Problem Noted Date Resolved Date [...] as of this encounter (statuses as of 02/17/2023) Immunizations Name Administration Dates Next Due H1N1 [...] Telephone Encounter - Jeevan Mclean MD - 02/17/2023 1:46 PM EDTSigned Prescriptions: Disp Refills traMADol HCl 50 MG Oral Tablet (Ultram) 180 Ta*0 Sig: Take 2 Tablets by mouth every 8 hours as needed for Pain, Moderate. Authorizing Provider: JEEVAN MCLEAN * Telephone Encounter - Alonso Billings, [facility] - 02/17/2023 1:43 PM EDT Pending Prescriptions: Disp Refills traMADol HCl 50 MG Oral Tablet (Ultram) 180 Ta*0 Sig: Take 2 Tablets by mouth every 8 hours as needed for Pain, Moderate. * Telephone Encounter - Alonso Billings [facility] - 02/17/2023 1:42 PM EDT I have reviewed the patients controlled substance dispensing history in the Prescription Drug Monitoring Program in compliance with the [facility] regulations before prescribing a controlled substance. PDMP checked on 02/17/2023. Pending Prescriptions: Disp Refills traMADol HCl 50 MG Oral Tablet (Ultram) 180 Ta*0 Sig: Take 2 Tablets by mouth every 8 hours as needed for Pain, Moderate. Last Visit: 09/30/2022 (in office), 12/16/2022 (telemedicine) Next Visit: Visit date not found Date medication was last filled: 01/21/23 Date medication is due for refill: 02/19/23 [facility]acy: [facility] #[id number] Is this request for a controlled substance? Yes and Urine Drug Screen Not completed Toxicology results: No results found. However, due to the size of the patient record, not all encounters were searched.Please check Results Review for a complete set of results. Please approve if appropriate. Thanks, Alonso Billings, Jose Clinical Pharmacist Telepharmacy [phone] 02/17/2023, 1:42 PM * Telephone Encounter - DANIEL Olmstead - 02/16/2023 10:48 AM EDT Did you pend patient's preferred pharmacy and medication before forwarding?yes [facility]acy: [facility] #[id number] Pending Prescriptions: Disp Refills traMADol HCl 50 MG Oral Tablet (Ultram) 180 Ta*0 Sig: Take 2 Tablets by mouth every 8 hours as needed for Pain, Moderate. Last Visit: 09/30/2022 (in office), 12/16/2022 (telemedicine) Next Visit: Visit date not found If no future appointments scheduled, and last appointment is greater than a year ago, please schedule patient for a follow-up appointment Last date the medication was ordered: 01/20/2023 Is this request for a controlled substance?Yes, What was the last refill date 01/20/2023 w/ quantity 180 and dosage 50mg and Urine Drug Screen Not completed. Urine Drug Screen:No results found. However, due [...] PM TSH 0.66 12/29/2019 10:22 AM LDLCALC 111 08/24/2018 04:39 AM LDLCALC 123 05/01/2011 11:39 AM LDLDIRECT 138 (H) 02/14/2015 09:27 AM ALT 6 (L) 12/29/2019 10:22 AM HGBA1C 5.8 08/24/2018 04:39 AM HGBA1C 5.7 04/19/2014 12:08 PM documented in this encounter Plan of Treatment Upcoming Encounters Date Type Specialty Care Team Description 02/22/2023 Laboratory [facility] Mobile Home Draw [address] [place], [place] [phone] 02/23/2023 [facility] [address] [place] [address] 03/01/2023 Telemedicine Psychiatry Hugo Alcantara MD [address] [place] [address] 03/11/2023 Office Visit Neurology Hina Lion PA-C [address] [place] [address] 03/16/2023 Office Visit Pulmonary Alisha Carrero CRNP [address] [place] [address] 03/17/2023 PulmDiagnostic Pulmonary Function [place], [address] [place] [address] 2023 Imaging Radiology 06/11/2023 Telemedicine Urology Juan José Walters MD [address] [place] [address] 07/07/2023 Office Visit Cardiology Jerry Pacheco DO [address] [place] [id number] Scheduled Procedures Name Priority Associated Diagnoses Date/Ti [...] 02/16/2022 LUNG CANCER SCREENING - USE SMARTSET 35505 Completed 03/16/2022 Influenza Vaccine (FLU shot) Completed [...] sciatica documented in this encounter Care Teams Salon Professional Relationship Specialty Start Date End Date Jeevan Mclean MD [address] [place] [address] PCP - General Family Medicine 12/29/19 documented as of this encounter
--- OUTSIDE RECORDS SUMMARY | 2023-07-25 04:18 | External Medical Summary | Summary of Care ---
Author Name Unknown Organization [facility] Address [address] [facility] [address] Phone [phone] Care Team Providers Care Coding Validator Name Role Phone Roger Alexandra MD Primary Care Provider [phone] Reason for Visit * Reason Onset Date Comments Abnormal Lab Results 02/16/2023 Encounter Details Date Type Department Care Team Description 02/16/2023 Telephone Pharmacy Call Center [address] [place] [address] [facility] [address] [place] [address] Abnormal Lab Results Allergies Active Allergy Reactions Severity Noted [...] morning. 30 Tablet 6 01/26/2023 Active Nystatin 787866 UNIT/GM External Powder (Nyamyc) apply to affected [...] Telephone Encounter - Dottie Eli RPh - 02/16/2023 8:09 AM EDT Images from the original note were not included. Received the following staff message; please refer to [facility] encounter from today 02/16/23 for warfarin dosing recommendations. Deon Callahan RPh P Telepharmacy [facility] Pool/Class Previous Messages ----- Message ----- From: Rosales Castañeda RPh Sent: 02/15/2023 10:39 PM EDT To: [facility] Clinic Pool/Class Subject: After hours INR call Hello, We received a call in the inpatient pharmacy just after 2230 tonight with this patient's INR resultof 5.2. A message was left for the patient at the number listed on her anticoagulation clinic note, instructing her that the anticoagulation clinic would be in touch with her in the morning with further dosing instructions. Thanks! --Papito Ordaz, Dottie Eli, PharmD Clinical Pharmacist 02/16/2023 8:10 AM documented in this encounter Plan of Treatment Upcoming Encounters Date Type Specialty Care Team Description 03/01/2023 Telemedicine Psychiatry Hugo Alcantara MD [address] [place] [address] 03/11/2023 Office Visit Neurology Hina Lion PA-C [address] [place] [address] 03/16/2023 Office Visit Pulmonary Alisha Carrero CRNP [address] [place] [address] 03/17/2023 PulmDiagnostic Pulmonary Function [place], [facility] [address] [place] [address] 2023 Imaging Radiology 06/11/2023 Telemedicine Urology Juan José Walters MD [address] [place] [address] 07/07/2023 Office Visit Cardiology Jerry Pacheco DO [address] [place] [address] Scheduled Procedures Name Priority Associated Diagnoses Date/Ti [...] Tdap) 06/27/2018 06/27/2008 Lipid Panel 09/25/2020 09/25/2015, /12/2014, 05/01/2011, Additional history exists Depression, Most Recent [...] 02/16/2022 LUNG CANCER SCREENING - USE SMARTSET 60739 Completed 03/16/2022 Influenza Vaccine (FLU shot) Completed [...] filedocumented as of this encounter Care Teams Coding Validator Relationship Specialty Start Date End Date Roger Alexandra MD [address] [place] [address] PCP - General Family Medicine 12/29/19 documented as of this encounter
--- OUTSIDE RECORDS SUMMARY | 2023-07-25 04:18 | External Medical Summary | Summary of Care ---
Author Name Unknown Organization [facility] Address [address] [place] [address] Phone [phone] Care Team Providers Care Railroad Police Name Role Phone Roger Alexandra MD Primary Care Provider [phone] [phone] Encounter Details Date Type Department Care Team Description 02/22/2023 Orders Only Lab Mobile Phlebotomy [facility] [address] [place], [place] [id number] Kim Mercado, [facility] [address] [place] [address] Paroxysmal atrial fibrillation (HCC)* Allergies Active Allergy Reactions Severity Noted Date Comments Aspirin Unknown 12/12/2007 von Willebrand's disease Salicylates 03/01/2000 von Willebrand's disease documented as of this encounter (statuses as of 02/22/2023) Medications Medication Sig Dispensed Refills Start Date [...] Moderate. 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 0 06/01/2005 [...] as of this encounter (statuses as of 02/22/2023) Immunizations Name Administration Dates Next Due H1N1 [...] [facility]mc, Gml Mobile Home Draw [address] [place] [address] Paroxysmal atrial fibrillation (HCC) 02/23/2023 [facility] [address] [place] [address] 03/01/2023 Telemedicine Psychiatry Hugo Alcantara MD [address] [place] [address] 03/11/2023 Office Visit Neurology Hina Lion PA-C [address] [place] [address] 03/16/2023 Office Visit Pulmonary Alisha Carrero, DEALERSHIP GENERAL MANAGER [address] [place] [address] 03/17/2023 PulmDiagnostic Pulmonary Function [place], Pft [address] [place] [address] 2023 Imaging Radiology 06/11/2023 Telemedicine Urology Juan José Walters MD [address] [place] [address] 07/07/2023 Office Visit Cardiology Jerry Pacheco, [address] [place] [address] Scheduled Orders Name Type Priority Associated Diagnoses Orde r Schedule PT INR Lab Routine Paroxysmal atrial fibrillation (HCC) Expected: 02/22/2023, Expires: 02/23/2024 Scheduled Procedures Name Priority Associated Diagnoses Date/Ti [...] 02/16/2022 LUNG CANCER SCREENING - USE SMARTSET 48926 Completed 03/16/2022 Influenza Vaccine (FLU shot) Completed [...] Diagnosis Paroxysmal atrial fibrillation (HCC) Atrial fibrillation Paroxysmal atrial fibrillation (HCC)- Primary Atrial fibrillation documented in this encounter Care Teams Railroad Police Relationship Specialty Start Date End Date Roger Alexandra MD [address] [place] [address] PCP - General Family Medicine 12/29/19 documented as of this encounter
--- OUTSIDE RECORDS SUMMARY | 2023-07-25 04:18 | External Medical Summary ---
Author Name Unknown Address Unknown Organization [id number]:[facility] [place] [address] [facility] [address] [place] [address] Laboratory Report Ordering Provider Test Date Status SUMAN STANFORD 02/15/2023 09:40:00 Final Observation Date Value Abnormality Reference (Units ) Status PT 02/15/2023 09:40:00 48.2 Above high normal 11.6-15.2 (seconds) Final INR 02/15/2023 09:40:00 5.2 Above upper panic limits 0.8-1.2 Final Performing Location [facility] [place] [address] [place] [address]
--- OUTSIDE RECORDS SUMMARY | 2023-07-25 04:18 | External Medical Summary | Summary of Care ---
Author Name Unknown Organization [facility] Address [address] [facility] [address] Phone [phone] Care Team Providers Care Streetcar Operator Name Role Phone Roger Alexandra MD Primary Care Provider +1 [phone] Reason for Visit * Reason Comments Dosage Adjustment Via Phone (anticoag Cl inic) Encounter Details Date Type Department Care Team Description 02/22/2023 Anticoagulation Pharmacy Call Center [address] [facility] [place] [address] [facility] [address] [place] [address] intermission coordinator current use 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* Allergies Active [...] Moderate. 180 Tablet 0 02/17/2023 Active Nystatin 336269 UNIT/GM External Powder (Nyamyc) apply to affected [...] Progress Notes * Kim Mercado RPh - 02/22/2023 3:35 PM EDT 02/22/2023 03:33 [...] repeat PT/INR in 1 week. Kim Mercado Rph, Pharm.D. Clinical Pharmacist Telepharmacy [phone] 02/22/2023,3:37 PM * RUFINA Vela - 02/22/2023 1:24 PM EDT Contacts Type Contact Phone/Fax 02/22/2023 01:13 PM EDT Phone (Outgoing) Kimberly Kendall (Self) [phone] (M) Patient Findings Positives: Other complaints (This pt wants to try skipping a day or 2. She states that her when herlevels go low like today the next time is always very high. She wants to know if you can make an adjustment? Please call her. No [facility] available when pt was holding.) Negatives: Signs/symptoms [...] dose: not changed Additional Dosing Information: Description [facility] Also sent MyG after trying to call Tech to contact patient with dose instructions as noted. Kim Mercado RPh 02/22/2023, 1:08 PM documented in this encounter Plan of Treatment Upcoming Encounters Date Type Specialty Care Team Description 03/01/2023 Laboratory Laboratory Processing [facility], [facility] Mobile Home Draw [address] [place] [address] 03/01/2023 Telemedicine Psychiatry Hugo Alcantara MD [address] [place] [address] 03/02/2023 [facility] [address] [place] [address] 03/11/2023 Office Visit Neurology Hina Lion PA-C [address] [place] [address] 03/16/2023 Office Visit Pulmonary Alisha Carrero CRNP [address] [place] [address] 03/17/2023 PulmDiagnostic Pulmonary Function [place]id, Pft [address] [place] [address] 2023 Imaging Radiology 06/11/2023 Telemedicine Urology Juan José Walters MD [address] [place] [id number] 07/07/2023 Office Visit Cardiology Jerry Pacheco, [address] [place] [address] Scheduled Procedures Name Priority Associated Diagnoses Date/Ti [...] 02/16/2022 LUNG CANCER SCREENING - USE SMARTSET 06311 Completed 03/16/2022 Influenza Vaccine (FLU shot) Completed [...] as of this encounter Visit Diagnoses Diagnosis snf current use 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- Primary documented in this encounter Care Teams Streetcar Operator Relationship Specialty Start Date End Date Roger Alexandra MD [address] [place] [address] PCP - General Family Medicine 12/29/19 documented as of this encounter
--- OUTSIDE RECORDS SUMMARY | 2023-07-25 04:18 | External Medical Summary | Summary of Care ---
Author Name Unknown Organization [facility] Address [address] [place] [address] Phone [phone] Care Team Providers Care Research Engineer Marine Equipment Name Role Phone Roger Alexandra MD Primary Care Provider [phone] [phone] Reason for Visit * Reason Onset Date Comments case management 02/03/2023 Encounter Details Date Type Department Care Team Description 02/03/2023 Band Saw Operator Telephone Family [facility] [address] [place] [address] Yara Morris, management accounts manager Allergies Active Allergy Reactions Severity Noted Date Comments Aspirin Unknown 12/12/2007 von Willebrand's disease Salicylates 03/01/2000 von Willebrand's disease documented as of this encounter (statuses as of 02/05/2023) Medications Medication Sig Dispensed Refills Start Date End Date Status Warfarin Sodium 5 MG Oral Tablet (Coumadin)Indicatio ns:Paroxysmal atrial fibrillation (HCC) Take by mouth 1 Tablet in the evening. OR As directed by coumadin clinic. 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 30 Tablet 6 01/26/2023 Active Nystatin 458514 UNIT/GM External Powder (Nyamyc) apply to affected area twice a day 15 g 1 01/29/2023 Active Nitrofurantoin Monohyd Macro 100 MG Oral Capsule (Macrobid) Take 1 Capsule by mouth in the morning and 1 Capsule before bedtime. With food.. 14 Capsule 0 02/05/2023 Active Baclofen 10 MG Oral Tablet (Lioresal)Indicatio ns:Chronic bilateral low back pain without sciatica Take 1 Tablet by mouth 3 times a day as needed for Muscle spasms. 90 Tablet 0 12/31/2022 3 Discontinu ed(Refill) documented as of this encounter (statuses as of 02/05/2023) Active Problems Problem Noted Date Decreased functional [...] as of this encounter (statuses as of 02/05/2023) Resolved Problems Problem Noted Date Resolved Date [...] as of this encounter (statuses as of 02/05/2023) Immunizations Name Administration Dates Next Due H1N1 [...] Telephone Encounter - Tracey Cabrera LPN - 02/05/2023 3:09 PM EDT Spoke with pt, aware of macrobid. Will start today. * Addendum Note - Juan José Walters MD - 02/05/2023 1:35 PM EDTAddended by: JUAN JOSÉ WALTERS on: 02/05/2023 01:35 PM Modules accepted: Orders * Telephone Encounter - Juan José Walters MD - 02/05/2023 1:34 PM EDT Macrobid ordered pending urine culture for we can. Unclear why these messages are not going throughour staff. Thanks, * Telephone Encounter - Yara Morris RN - 02/05/2023 10:51 AM EDT Spoke with patient and made aware. She is asking if there is anything that can be prescribed in themeantime as her urine culture is still pending. She is complaining of burning and stinging. Noticedsome pink tinged urine on her brief yesterday. Dr. Walters, Please advise, if anything can be prescribed? (she states she does not recall ever using pyridium in the past, not sure if that would be appropriate?) Thank you! She uses [facility]. * Telephone Encounter - Juan José Walters MD - 02/03/2023 3:55 PM EDT Stop medication and check if patient diuresis fluid. It patient wishes to restart medication afterwards we can provide prescription for 5 mg dose. Thanks, * Telephone Encounter - Yara Morris RN - 02/03/2023 1:03 PM EDT Case Management Progress note S: patient called in to report that she has had an increase in swelling of her lower extremities since starting the vesicare. She also feels like she has a uti. Has burning and stinging. Is incontinent. Does not think there is any change in color or odor to urine. Reporting her weight is up to 305 lbs. She does not know how much of a gain/how quickly she has gained. States she is drinking adequately. Denies fevers, cough or any worsening shortness of breath. O: phone call follow up A: Alert and oriented x 3 P: spoke with urology, who will place order for UA. Called [facility] and spoke with Abiodun, they are scheduled to see the patient tomorrow. Will fax order forUA via straight cath to their office at #[phone] documented in this encounter Plan of Treatment Upcoming Encounters Date Type Specialty Care Team Description 02/11/2023 Laboratory Laboratory Processing [facility], [facility] Mobile Home Draw [address] [facility] [place] [address] 02/12/2023 [facility] [address] [place] [address] 03/01/2023 Telemedicine Psychiatry Hugo Alcantara MD [address] [place], [place] [address] 03/11/2023 Office Visit Neurology Hina Lion PA-C [address] [place], [place] [address] 03/16/2023 Office Visit Pulmonary Alisha Carrero CRNP [address] [place] [address] 03/17/2023 PulmDiagnostic Pulmonary Function [place], Pft [address] [place] [address] 2023 Imaging Radiology 06/11/2023 Telemedicine Urology Juan José Walters MD [address] [place] [address] 07/07/2023 Office Visit Cardiology Jerry Pacheco, [address] [place] [address] Scheduled Procedures Name Priority Associated Diagnoses Date/Ti [...] 02/16/2022 LUNG CANCER SCREENING - USE SMARTSET 45916 Completed 03/16/2022 Influenza Vaccine (FLU shot) Completed [...] filedocumented as of this encounter Care Teams Research Engineer Marine Equipment Relationship Specialty Start Date End Date Roger Alexandra MD [address] [place] [address] PCP - General Family Medicine 12/29/19 documented as of this encounter
--- OUTSIDE RECORDS SUMMARY | 2023-07-25 04:18 | External Medical Summary | Summary of Care ---
Author Name Unknown Organization [facility] Address [address] [place] [address] Phone [phone] Care Team Providers Care Watch Train Assembler Name Role Phone Roger Alexandra MD Primary Care Provider [phone] [phone] Encounter Details Date Type Department Care Team Description 02/15/2023 Orders Only Lab Mobile Phlebotomy [facility] [address] [place], [place] [address] Kim Mercado, [facility] [address] [place] [address] Paroxysmal atrial fibrillation (HCC)* Allergies Active Allergy [...] morning. 30 Tablet 6 01/26/2023 Active Nystatin 182995 UNIT/GM External Powder (Nyamyc) apply to affected [...] Care Team Description 02/15/2023 Laboratory Laboratory Processing c, l Mobile Home Draw [address] [place] [address] 02/16/2023 [facility] [address] [facility] [address] 03/01/2023 Telemedicine Psychiatry Hugo Alcantara MD [address] [place] [address] 03/11/2023 Office Visit Neurology Hina Lion PA-C [address] [place] [address] 03/16/2023 Office Visit Pulmonary Alisha Carrero CRNP [address] [place] [address] 03/17/2023 PulmDiagnostic Pulmonary Function [place], Pft [address] [place] [address] 2023 Imaging Radiology 06/11/2023 Telemedicine Urology Juan José Walters MD [address] [place] [address] 07/07/2023 Office Visit Cardiology Jerry Pacheco, [address] [place] [address] Scheduled Orders Name Type Priority Associated Diagnoses Orde r Schedule PT INR Lab Routine Paroxysmal atrial fibrillation (HCC) Expected: 02/15/2023, Expires: 02/16/2024 Scheduled Procedures Name Priority Associated Diagnoses Date/Ti [...] 02/16/2022 LUNG CANCER SCREENING - USE SMARTSET 10678 Completed 03/16/2022 Influenza Vaccine (FLU shot) Completed [...] fibrillation documented in this encounter Care Teams Watch Train Assembler Relationship Specialty Start Date End Date Roger Alexandra MD [address] [place] [address] PCP - General Family Medicine 12/29/19 documented as of this encounter
--- OUTSIDE RECORDS SUMMARY | 2023-07-25 04:18 | External Medical Summary ---
Author Name Unknown Address Unknown Organization K0G:[facility] 57[address]10 - [address] [place] [address] Laboratory Report Ordering Provider Test Date Status SUMAN STANFORD 02/22/2023 10:05:00 Final Observation Date Value Abnormality Reference (Units ) Status PT 02/22/2023 10:05:00 15.6 Above high normal 11 .6-15.2 (seconds) Final INR 02/22/2023 10:05:00 1.2 0.8-1.2 Final Performing Location [facility] 0 - [address] [place] [address]
--- OUTSIDE RECORDS SUMMARY | 2023-07-25 04:18 | External Medical Summary | Summary of Care ---
Author Name Unknown Organization [facility] Address [address] [place] [address] Phone [phone] Care Team Providers Care Bonding Supervisor Name Role Phone Jeevan Mclean MD Primary Care Provider [phone] [phone] Reason for Visit * Reason Onset Date Comments Medication Refill 02/17/2023 Encounter Details Date Type Department Care Team Description 02/17/2023 Refill Family [facility] [address] [place] [address] Jeevan Mclean MD [address] [place] [id number] Chronic bilateral low back pain without sciatica Allergies Active Allergy Reactions Severity Noted Date Comments Aspirin Unknown 12/12/2007 von Willebrand's disease Salicylates 03/01/2000 von Willebrand's disease documented as of this encounter (statuses as of 02/18/2023) Medications Medication Sig Dispensed Refills Start Date End Date Status Warfarin Sodium 5 MG Oral Tablet (Coumadin)Indicatio ns:Paroxysmal atrial fibrillation (HCC) Take by mouth 1 Tablet in the evening. OR As directed by coumadin clinic. 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 0 06/01/2005 [...] as of this encounter (statuses as of 02/18/2023) Immunizations Name Administration Dates Next Due H1N1 [...] Telephone Encounter - Jeevan Mclean MD - 02/18/2023 1:53 PM EDTSigned Prescriptions: Disp Refills Nystatin 483617 UNIT/GM External Powder (N*15 g 1 Sig: apply to affected area twice a day Authorizing Provider: JEEVAN MCLEAN Refused Prescriptions: Disp Refills traMADol HCl 50 MG Oral Tablet (Ultram) 180 Ta*0 Refused By: BLOSSOM CHERY Reason for Refusal: Duplicate Request * Telephone Encounter - Blossom Chery [facility] - 02/18/2023 1:53 PM EDTPending Prescriptions: Disp Refills Nystatin 999569 UNIT/GM External Powder (N*15 g 1 Sig: apply to affected area twice a day Refused Prescriptions: Disp Refills traMADol HCl 50 MG Oral Tablet (Ultram) 180 Ta*0 Refused By: BLOSSOM CHERY Reason for Refusal: Duplicate Request - * Telephone Encounter - Blossom Chery [facility] - 02/18/2023 1:51 PM EDT [facility] is currently not authorized to approve refills for the pended medication(s) per refillprotocol. Please approve if appropriate. Thank you, Blossom Chery, PharmD Clinical Pharmacist [facility] [phone] 02/18/2023, 1:51 PM Pending Prescriptions: Disp Refills Nystatin 393300 UNIT/GM External Powder (*15 g 1 Sig: apply to affected area twice a day Refused Prescriptions: Disp Refills traMADol HCl 50 MG Oral Tablet (Ultram) 180 Ta*0 Refused By: BLOSSOM CHERY Reason for Refusal: Duplicate Request Last Visit: 09/30/2022 (in office), 12/16/2022 (telemedicine) Next Visit: Visit date not found If no future appointments scheduled, and last appointment is greater than a year ago, please schedule patient for a follow-up appointment Last date the medication was ordered: 01/29 Pharmacy: [facility] [id number] Is this request for a controlled [...] Care Team Description 02/22/2023 Laboratory Laboratory Processing Gm, Gml Mobile Home Draw [address] [place] [address] 02/23/2023 [facility] [address] [place] [address] 03/01/2023 Telemedicine Psychiatry Hugo Alcantara MD [address] [place] [address] 03/11/2023 Office Visit Neurology Hina Lion PA-C [address] [facility], [place] [address] 03/16/2023 Office Visit Pulmonary Alisha Carrero, FRUIT STUFFER [address] [place] [address] 03/17/2023 PulmDiagnostic Pulmonary Function [place], Pft [address] [place] [address] 2023 Imaging Radiology 06/11/2023 Telemedicine Urology Juan José Walters MD [address] [place] [address] 07/07/2023 Office Visit Cardiology Jerry Pacheco, [address] [place] [address] Scheduled Procedures Name Priority Associated Diagnoses Date/Ti [...] 02/16/2022 LUNG CANCER SCREENING - USE SMARTSET 50071 Completed 03/16/2022 Influenza Vaccine (FLU shot) Completed [...] sciatica documented in this encounter Care Teams Bonding Supervisor Relationship Specialty Start Date End Date Jeevan Mclean MD [address] [place] [address] PCP - General Family Medicine 12/29/19 documented as of this encounter
--- OUTSIDE RECORDS SUMMARY | 2023-07-25 04:18 | External Medical Summary | Summary of Care ---
Author Name Unknown Organization [facility] Address [address] [facility] [address] Phone [phone] Care Team Providers Care Front Desk Worker Name Role Phone Roger Alexandra MD Primary Care Provider [phone] [phone] Reason for Visit * Reason Onset Date Comments Other 02/22/2023 Encounter Details Date Type Department Care Team Description 02/22/2023 Telephone Pharmacy Call Center [address] [facility] [place] [address] [facility] [address] [place] [address] Other Allergies Active Allergy Reactions Severity Noted Date [...] Moderate. 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 Kim Mercado [facility], Pharm.D. Clinical Pharmacist Telepharmacy [phone] 02/22/2023,4:19 PM * Telephone Encounter - RUFINA Montoya - 02/22/2023 3:38 PM EDT Caller's name: Kimberly Yoon call back number(OFFICE NUMBER FOR ): [phone] Reason for call: Questions about Coumadin/ Lovenox dosing: pt requesting to speak to [facility] for her dose dirs. Thank you, Carlos Soares [facility] Passport Application Examiner [facility] 02/22/2023,3:38 PM documented in this encounter Plan of Treatment Upcoming Encounters Date Type Specialty Care Team Description 02/22/2023 [facility] [address] [place] [address] detention current use 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* 03/01/2023 Laboratory Laboratory Processing [facility] Mobile Home Draw [address] [place] [address] 03/01/2023 Telemedicine Psychiatry Hugo Alcantara MD [address] [place] [address] 03/02/2023 [facility] [address] [place] [address] 03/11/2023 Office Visit Neurology Hina Lion PA-C [address] [place] [address] 03/16/2023 Office Visit Pulmonary Alisha Carrero CRNP [address] [place] [address] 03/17/2023 PulmDiagnostic Pulmonary Function West, Pft [address] [place] [address] 2023 Imaging Radiology 06/11/2023 Telemedicine Urology Juan José Walters MD [address] [place] [address] 07/07/2023 Office Visit Cardiology Jerry Pacheco DO [address] [place] [address] Scheduled Procedures Name Priority Associated Diagnoses Date/Ti [...] 02/16/2022 LUNG CANCER SCREENING - USE SMARTSET 18455 Completed 03/16/2022 Influenza Vaccine (FLU shot) Completed [...] filedocumented as of this encounter Care Teams Front Desk Worker Relationship Specialty Start Date End Date Roger Alexandra MD [address] [place] [address] PCP - General Family Medicine 12/29/19 documented as of this encounter
--- OUTSIDE RECORDS SUMMARY | 2023-07-25 04:18 | External Medical Summary | Summary of Care ---
Author Name Unknown Organization [facility] Address [address] [place] [address] Phone [phone] Care Team Providers Care Insurance Underwriter Sales Name Role Phone Roger Alexandra MD Primary Care Provider [phone] [phone] Reason for Visit * Reason Onset Date Comments Medication Refill 02/16/2023 Encounter Details Date Type Department Care Team Description 02/16/2023 Refill [facility] [address] [place] [address] Roger Alexandra MD [address] [place] [id number] Allergies Active Allergy Reactions Severity Noted Date [...] morning. 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 Informed pt that RX is available at their pharmacy. Pt verbalized understanding and stated they will check with their pharmacy regarding this medication. Thanks, Oliverio Aguirre, [facility] 02/16/2023,10:50 AM documented in this encounter Plan of Treatment Upcoming Encounters Date Type Specialty Care Team Description 02/22/2023 Laboratory Laboratory [facility] Mobile Home Draw [address] [place] [address] 03/01/2023 Telemedicine Psychiatry Hugo Alcantara MD [address] [place] [address] 03/11/2023 Office Visit Neurology Hina Lion PA-C [address] [place] [address] 03/16/2023 Office Visit Pulmonary Alisha Carrero CRNP [address] [place] [address] 03/17/2023 PulmDiagnostic Pulmonary Function [place], Pft [address] [place] [address] 2023 Imaging Radiology 06/11/2023 Telemedicine Urology Juan José Walters MD [address] [facility] [address] [place] [address] 07/07/2023 Office Visit Cardiology Jerry Pacheco DO [address] [place] [address] Scheduled Procedures Name Priority Associated Diagnoses Date/Ti [...] Tdap) 06/27/2018 06/27/2008 Lipid Panel 09/25/2020 09/25/2015, 040 12/2014, 05/01/2011, Additional history exists Depression, Most [...] 02/16/2022 LUNG CANCER SCREENING - USE SMARTSET 38830 Completed 03/16/2022 Influenza Vaccine (FLU shot) Completed [...] filedocumented as of this encounter Care Teams Insurance Underwriter Sales Relationship Specialty Start Date End Date Roger Alexandra MD [address] [place] [address] PCP - General Family Medicine 12/29/19 documented as of this encounter
--- OUTSIDE RECORDS SUMMARY | 2023-07-25 04:19 | External Medical Summary | Summary of Care ---
Author Name Unknown Organization [facility] Address [address] [place] [address] Phone [phone] Care Team Providers Care Sewer Hand Name Role Phone Roger Alexandra MD Primary Care Provider [phone] [phone] Reason for Visit * Reason Onset Date Comments case management 02/03/2023 Encounter Details Date Type Department Care Team Description 02/03/2023 Central Supply Technician Telephone Family [facility] [address] [place] [address] Yara Morris, risk management internship Allergies Active Allergy Reactions Severity Noted Date Comments Aspirin Unknown 12/12/2007 von Willebrand's disease Salicylates 03/01/2000 von Willebrand's disease documented as of this encounter (statuses as of 02/03/2023) Medications Medication Sig Dispensed Refills Start Date [...] before bedtime. 120 Tablet 2 12/16/2022 Active Baclofen 10 MG Oral Tablet (Lioresal)Indication s:Chronic bilateral low back pain without sciatica Take 1 Tablet by mouth 3 times a day as needed for Muscle spasms. 90 Tablet 0 12/31/2022 Active Isosorbide Mononitrate ER 30 MG Oral [...] morning. 30 Tablet 6 01/26/2023 Active Nystatin 347284 UNIT/GM External Powder ([facility]) apply to affected area twice a day 15 g 1 01/29/2023 Active documented as of this encounter (statuses as of 02/03/2023) Active Problems Problem Noted Date Decreased functional [...] as of this encounter (statuses as of 02/03/2023) Resolved Problems Problem Noted Date Resolved Date [...] as of this encounter (statuses as of 02/03/2023) Immunizations Name Administration Dates Next Due H1N1 [...] gained. States she is drinking adequately. Denies fevers. O: phone call follow up A: Alert and oriented x 3 P: spoke with urology, who will place order for UA. Called [facility] and spoke with Abiodun, they are scheduled to see the patient tomorrow. Will fax order forUA via straight cath to their office at #[phone] documented in this encounter Plan of Treatment Upcoming Encounters Date Type Specialty Care Team Description 02/11/2023 Laboratory Laboratory Processing [facility] Mobile Home Draw [address] [facility] [place] [address] 02/12/2023 [facility] [address] [place] [address] 03/01/2023 Telemedicine Psychiatry Hugo Alcantara MD [address] [place] [address] 03/11/2023 Office Visit Neurology Hina Lion PA-C [address] [place], [place] [address] 03/16/2023 Office Visit Pulmonary Alisha Carrero CRNP [address] [place] [address] 03/17/2023 PulmDiagnostic Pulmonary Function [place], [facility] [address] [place] [address] 2023 Imaging Radiology 06/11/2023 Telemedicine Urology [facility] [address] [place] [address] 07/07/2023 Office Visit Cardiology Jerry Pacheco, [address] [place] [address] Scheduled Procedures Name Priority Associated Diagnoses [...] 02/16/2022 LUNG CANCER SCREENING - USE SMARTSET [id number] Completed 03/16/2022 Influenza Vaccine (FLU shot) Completed [...] filedocumented as of this encounter Care Teams Sewer Hand Relationship Specialty Start Date End Date Roger Alexandra MD [address] [place] [address] PCP - General Family Medicine 12/29/19 documented as of this encounter
--- OUTSIDE RECORDS SUMMARY | 2023-07-25 04:19 | External Medical Summary | Summary of Care ---
Author Name Unknown Organization [facility] Address [address] [place] [address] Phone [phone] Care Team Providers Care Promotions Associate Name Role Phone Roger Alexandra MD Primary Care Provider [phone] [phone] Reason for Visit * Reason Onset Date Comments case management 02/03/2023 Encounter Details Date Type Department Care Team Description 02/03/2023 Pot Lining Supervisor Telephone Family [facility] [address] [place] [address] Yara Morris, project management analyst Allergies Active Allergy Reactions Severity Noted Date [...] 90 Tablet 3 02/16/2022 Active oxygen IN GASIndications:Ice Cream Dipper 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 respiratory failure (HCC),COPD, group D, [...] OPD, group D, by GOLD 2017 classification ([facility]),Chronic hypoxemic respiratory failure ([facility]) Use with nebulized meds 1 Each 0 09/16/2022 Active Full Kit Nebulizer SetIndications:COPD , group D, by GOLD 2017 classification ([facility]),Chronic hypoxemic respiratory failure ([facility]) Use with nebulizer 1 Each [...] morning. 30 Tablet 6 01/26/2023 Active Nystatin 430420 UNIT/GM External Powder (Nyamyc) apply to affected [...] 02/04/2006 12/21/2008 Atrial septal aneurysm 02/04/2006 9 half-way current use 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 0 06/01/2005 [...] would be appropriate?) Thank you! She uses [employer]. * Telephone Encounter - Juan José Walters MD - 02/03/2023 3:55 PM EDT Stop medication and check if patient diuresis fluid. It patient wishes to restart medication afterwards we can provide prescription for 5 mg dose. Thanks, HM * Telephone Encounter - Yara [...] who will place order for UA. Called [facility] and spoke with Abiodun, they are scheduled to see the patient tomorrow. Will fax order forUA via straight cath to their office at #[phone] documented in this encounter Plan of Treatment Upcoming Encounters Date Type Specialty Care Team Description 02/11/2023 Laboratory Laboratory Processing [facility] Mobile Home Draw [address] [place] [address] 02/12/2023 [facility] [address] [place] [address] 03/01/2023 Telemedicine Psychiatry Hugo Alcantara MD [address] [place], [place] [address] 03/11/2023 Office Visit Neurology Hina Lion PA-C [address] [facility] [place] [address] 03/16/2023 Office Visit Pulmonary Alisha Carrero CRNP [address] [place] [address] 03/17/2023 PulmDiagnostic Pulmonary Function [place], [facility] [address] [place] [address] 2023 Imaging Radiology 06/11/2023 Telemedicine Urology Juan José Walters MD [address] [facility] [address] [place] [id number] 07/07/2023 Office Visit Cardiology Jerry Pacheco DO [address] [place] [address] Scheduled Procedures Name Priority Associated Diagnoses Date/Ti [...] 02/16/2022 LUNG CANCER SCREENING - USE SMARTSET 71343 Completed 03/16/2022 Influenza Vaccine (FLU shot) Completed [...] filedocumented as of this encounter Care Teams Promotions Associate Relationship Specialty Start Date End Date Roger Alexandra MD [address] [place] [address] PCP - General Family Medicine 12/29/19 documented as of this encounter
--- OUTSIDE RECORDS SUMMARY | 2023-07-25 04:19 | External Medical Summary | Summary of Care ---
Author Name Unknown Organization [facility] Address [address] [place] [address] Phone [phone] Care Team Providers Care Gun Profiler Name Role Phone Jeevan Mclean MD Primary Care Provider [phone] [phone] Reason for Visit * Reason Onset Date Comments Medication Refill 02/04/2023 Encounter Details Date Type Department Care Team Description 02/04/2023 Refill [facility] [address] [place] [address] Jeevan Mclean MD [address] [place] [address] Chronic bilateral low back pain without sciatica Allergies Active Allergy Reactions Severity Noted Date Comments Aspirin Unknown 12/12/2007 von Willebrand's disease Salicylates 03/01/2000 von Willebrand's disease documented as of this encounter (statuses as of 02/04/2023) Medications Medication Sig Dispensed Refills Start Date End Date Status Warfarin Sodium 5 MG Oral Tablet (Coumadin)Indicatio ns:Paroxysmal atrial fibrillation (HCC) Take by mouth 1 Tablet in the evening. OR As directed by coumadin clinic. 90 Tablet 3 02/16/2022 Active oxygen IN GASIndications:Customs Verifier 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 respiratory failure (HCC),COPD, group D, [...] OPD, group D, by GOLD 2017 classification ([facility]),Chronic hypoxemic respiratory failure ([facility]) Use with nebulized meds 1 Each 0 09/16/2022 Active Full Kit Nebulizer SetIndications:COPD , group D, by GOLD 2017 classification ([facility]),Chronic hypoxemic respiratory failure ([facility]) Use with nebulizer 1 Each 0 09/16/2022 [...] morning. 30 Tablet 6 01/26/2023 Active Nystatin 003619 UNIT/GM External Powder (Nyamyc) apply to affected area twice a day 15 g 1 01/29/2023 Active Baclofen 10 MG Oral Tablet (Lioresal)Indicatio ns:Chronic bilateral low back pain without sciatica Take 1 Tablet by mouth 3 times a day as needed for Muscle spasms. 90 Tablet 0 02/04/2023 Active Baclofen 10 MG Oral Tablet (Lioresal)Indicatio ns:Chronic bilateral low back pain without sciatica Take 1 Tablet by mouth 3 times a day as needed for Muscle spasms. 90 Tablet 0 12/31/2022 3 Discontinu ed(Refill) documented as of this encounter (statuses as of 02/04/2023) Active Problems Problem Noted Date Decreased functional [...] as of this encounter (statuses as of 02/04/2023) Resolved Problems Problem Noted Date Resolved Date [...] as of this encounter (statuses as of 02/04/2023) Immunizations Name Administration Dates Next Due H1N1 [...] Telephone Encounter - Jeevan Mclean MD - 02/04/2023 7:14 PM EDTSigned Prescriptions: Disp Refills Baclofen 10 MG Oral Tablet (Lioresal) 90 Tab*0 Sig: Take 1 Tablet by mouth 3 times a day as needed for Muscle spasms. Authorizing Provider: JEEVAN MCLEAN * Telephone Encounter - Corrie Sam LPN - 02/04/2023 6:25 PM EDTPending Prescriptions: Disp Refills Baclofen 10 MG Oral Tablet (Lioresal) 90 Tab*0 Sig: Take 1 Tablet by mouth 3 times a day as needed for Muscle spasms. * Telephone Encounter - Corrie Sam LPN - 02/04/2023 6:25 PM EDT Did you pend patient's preferred pharmacy and medication before forwarding?yes Pharmacy: [facility] #[id number] Pending Prescriptions: Disp Refills Baclofen 10 MG [...] appointment Last date the medication was ordered: 12/31/2022 Is this request for a controlled substance?No [...] 12:08 PM * Telephone Encounter - Octavia Zamora - 02/04/2023 4:56 PM EDTPending Prescriptions: Disp Refills Baclofen 10 MG Oral Tablet (Lioresal) 90 Tab*0 Sig: Take 1 Tablet by mouth 3 times a day as needed for Muscle spasms. documented in this encounter Plan of Treatment Upcoming Encounters Date Type Specialty Care Team Description 02/11/2023 Laboratory Laboratory Processing [facility], [facility] Mobile [facility] Draw [address] [facility] [place] [id number] 02/12/2023 [facility] [address] [facility] [address] 03/01/2023 Telemedicine Psychiatry Hugo Alcantara MD [address] [place], [place] [address] 03/11/2023 Office Visit Neurology Hina Lion [facility]C [address] [facility] [address] 03/16/2023 Office Visit Pulmonary Alisha Carrero CRNP [address] [place] [address] 03/17/2023 PulmDiagnostic Pulmonary Function [place], Pft [address] [place] [address] 2023 Imaging Radiology 06/11/2023 Telemedicine Urology Juan José Walters MD [address] [facility] [address] [place] [address] 07/07/2023 Office Visit Cardiology Jerry Pacheco, [address] [place] [address] Scheduled Procedures Name Priority Associated Diagnoses Date/Ti [...] 02/16/2022 LUNG CANCER SCREENING - USE SMARTSET 62588 Completed 03/16/2022 Influenza Vaccine (FLU shot) Completed [...] sciatica documented in this encounter Care Teams Gun Profiler Relationship Specialty Start Date End Date Jeevan Mclean MD [address] [place] [address] PCP - General Family Medicine 12/29/19 documented as of this encounter
--- OUTSIDE RECORDS SUMMARY | 2023-07-25 04:19 | External Medical Summary | Summary of Care ---
Author Name Unknown Organization [facility] Address [address] [place] [facility] [place] [address] Phone [phone] Care Team Providers Care Government Documents Librarian Name Role Phone Jeevan Mclean MD Primary Care Provider +1 [phone] Reason for Visit * Reason Onset Date Comments Medication Refill 01/29/2023 Encounter Details Date Type Department Care Team Description 01/29/2023 Refill [facility] [address] [place] [address] Jeevan Mclean MD [address] [place] [address] Allergies Active Allergy Reactions Severity Noted Date Comments Aspirin Unknown 12/12/2007 von Willebrand's disease Salicylates 03/01/2000 von Willebrand's disease documented as of this encounter (statuses as of 01/29/2023) Medications Medication Sig Dispensed Refills Start Date End Date Status Warfarin Sodium 5 MG Oral Tablet (Coumadin)Indicatio ns:Paroxysmal atrial fibrillation (HCC) Take by mouth 1 Tablet in the evening. OR As directed by coumadin clinic. 90 Tablet 3 02/16/2022 Active oxygen IN GASIndications:Stem Sizer 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 respiratory failure (HCC),COPD, group D, [...] group D, by GOLD 2017 classification ([facility]),Chronic hypoxemic respiratory failure ([facility]) Use with nebulized meds 1 Each 0 09/16/2022 Active Full Kit Nebulizer SetIndications:COPD , group D, by GOLD 2017 classification ([facility]),Chronic hypoxemic respiratory failure ([facility]) Use with nebulizer 1 Each 0 09/16/2022 [...] 12/16/2022 Active Baclofen 10 MG Oral Tablet (Lioresal)Indicatio [...] morning. 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 [...] as of this encounter (statuses as of 01/29/2023) Immunizations Name Administration Dates Next Due H1N1 [...] Telephone Encounter - Jeevan Mclean MD - 01/29/2023 3:30 PM EDTSigned Prescriptions: Disp Refills Nystatin 382372 UNIT/GM External Powder (N*15 g 1 Sig: apply to affected area twice a day Authorizing Provider: JEEVAN MCLEAN * Telephone Encounter - Barbara Strange LPN - 01/29/2023 3:22 PM EDTPending Prescriptions: Disp Refills Nystatin 267717 UNIT/GM External Powder (N*15 g 1 Sig: apply to affected area twice a day * Telephone Encounter - Barbara Strange LPN - 01/29/2023 3:21 PM EDT Pending Prescriptions: Disp Refills Nystatin 553602 UNIT/GM External Powder (*15 g 1 Sig: apply to affected area twice a day Last Visit: 09/30/2022 (in office), 12/16/2022 (telemedicine) Next Visit: Visit date not found Last date the medication was ordered: 12/31/2022 Patient Active Problem List Diagnosis Code Irritable bowel syndrome with diarrhea K58.0 Medical home patient encounter Z00.8 Depression with anxiety F41.8 Obstructive sleep apnea G47.33 Von Willebrand disease D68.00 Idiopathic cardiomyopathy ([facility]) I42.9 Acquired hypothyroidism E03.9 Super obese E66.9 Chronic bilateral low back pain without sciatica M54.50, G89.29 Paroxysmal atrial fibrillation ([facility]) I48.0 Drug-seeking behavior Z76.5 History of multiple strokes Z86.73 Chronic diastolic CHF (congestive heart failure) ([facility]) I50.32 PTSD (post-traumatic stress disorder) F43.10 COPD, group D, by GOLD 2017 classification ([facility]) J44.9 Chronic hypoxemic respiratory failure ([facility]) J96.11 History of narcotic addiction ([facility]) F11.21 Decreased functional mobility R26.89 Labs: Lab Results Component Value Date/Time CREATININE - [facility] 0.9 10/23/2022 09:53 AM CREATININE - [facility] 0.7 10/17/2020 03:40 PM CREATININE NARESH 252 03/08/2014 10:22 AM CREATININE, RAND URINE-CAT 42 08/13/2011 11:08 AM CREATININE-OUTSIDE LAB 0.77 11/21/2021 12:00 AM Lab Results Component Value Date/Time POTASSIUM - [facility] 4.6 10/23/2022 09:53 AM POTASSIUM - [facility] 4.6 10/17/2020 03:40 PM POTASSIUM-OUTSIDE LAB 2.8 (A) 11/21/2021 12:00 AM Lab Results Component Value Date/Time TSH - [facility] 2.14 12/08/2022 01:59 PM TSH - [facility] 0.66 12/29/2019 10:22 AM Lab Results Component Value Date/Time LDL (CALCULATED)-OUTSIDE LAB 99 09/25/2015 12:00 AM LDL CHOLESTEROL (CALCULATED) - [facility] 123 05/01/2011 11:39 AM LDL CHOLESTEROL (CALCULATED) - [facility] 110 (H) 12/19/2009 11:26 AM LDL CHOLESTEROL (DIRECT MEASURE) - [facility] 138 (H) 02/14/2015 09:27 AM LDL CHOLESTEROL (DIRECT MEASURE) - [facility] 135 (H) 09/20/2007 02:06 PM LDL CHOLESTEROL-OUTSIDE LAB 111 08/24/2018 04:39 AM Lab Results Component Value Date/Time ALT - [facility] 6 (L) 12/29/2019 10:22 AM ALT-OUTSIDE LAB 10 (A) 01/17/2015 12:00 AM Hemoglobin AIC Results: Lab Results Component Value Date/Time HEMOGLOBIN A1C - [facility] 5.7 04/19/2014 12:08 PM HEMOGLOBIN A1C - [facility] 5.9 09/10/1999 04:45 PM HEMOGLOBIN A1C - [facility] 6.0 01/10/1999 11:30 AM documented in this encounter Plan of Treatment Upcoming Encounters Date Type Specialty Care Team Description 02/11/2023 Laboratory Laboratory Processing [facility] Mobile Home Draw [address] [place] [id number] 02/12/2023 [facility] [address] [place] [address] 03/01/2023 Telemedicine Psychiatry Hugo [facility]antara [facility] [address] [facility] [address] 03/11/2023 Office Visit Neurology Hina Lion PA-Roz [address] [place], [place] [address] 03/16/2023 Office Visit Pulmonary Alisha Carrero CRNP [address] [place] [address] 03/17/2023 PulmDiagnostic Pulmonary Function [facility] Pft [address] [place] [address] 2023 Imaging Radiology 06/11/2023 Telemedicine Urology Juan José Walters MD [address] [facility] [place] [address] 07/07/2023 Office Visit Cardiology Jerry Pacheco DO [address] [place] [address] Scheduled Procedures Name Priority Associated Diagnoses Date/Ti [...] 02/16/2022 LUNG CANCER SCREENING - USE SMARTSET 34510 Completed 03/16/2022 Influenza Vaccine (FLU shot) Completed [...] filedocumented as of this encounter Care Teams Government Documents Librarian Relationship Specialty Start Date End Date Jeevan Mclean MD [address] [place] [address] PCP - General Family Medicine 12/29/19 documented as of this encounter
--- OUTSIDE RECORDS SUMMARY | 2023-07-25 04:19 | External Medical Summary | Summary of Care ---
Author Name Unknown Organization [facility] Address [address] [place] [address] Phone [phone] Care Team Providers Care Chick Sexer Name Role Phone Roger Alexandra MD Primary Care Provider [phone] Reason for Visit * Reason Onset Date Comments case management 02/03/2023 Encounter Details Date Type Department Care Team Description 02/03/2023 Telephone Plant Power Operator Telephone Family [facility] [address] [place] [address] Yara Morris, business management analyst Allergies Active Allergy Reactions Severity [...] morning. 30 Tablet 6 01/26/2023 Active Nystatin 755483 UNIT/GM External Powder ([facility]) apply to affected area twice a [...] 02/04/2006 12/21/2008 Atrial septal aneurysm 02/04/2006 9 correction current use 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 0 06/01/2005 [...] Miscellaneous Notes * Telephone Encounter - Juan José Walters [...] who will place order for UA. Called [facility] and spoke with Abiodun, they are scheduled to see the patient tomorrow. Will fax order forUA via straight cath to their office at #[phone] documented in this encounter Plan of Treatment Upcoming Encounters Date Type Specialty Care Team Description 02/11/2023 Laboratory Laboratory Processing [facility], [facility] Mobile Home Draw [address] [facility] [place] [address] 02/12/2023 [facility] [address] [place] [address] 03/01/2023 Telemedicine Psychiatry Hugo Alcantara MD [address] [place] [address] 03/11/2023 Office Visit Neurology Hina Lion PA-C [address] [place] [address] 03/16/2023 Office Visit Pulmonary Alisha Carrero CRNP [address] [place] [address] 03/17/2023 PulmDiagnostic Pulmonary Function [place], Pft [address] [place] [address] 2023 Imaging Radiology 06/11/2023 Telemedicine Urology Juan José Walters MD [address] [facility] [address] [place] [address] 07/07/2023 Office Visit Cardiology Jerry Pacheco, DO [address] [place] [address] Scheduled Procedures Name Priority Associated Diagnoses Date/Ti [...] 02/16/2022 LUNG CANCER SCREENING - USE SMARTSET 17367 Completed 03/16/2022 Influenza Vaccine (FLU shot) Completed [...] filedocumented as of this encounter Care Teams Chick Sexer Relationship Specialty Start Date End Date Roger Alexandra MD [address] [place] [address] PCP - General Family Medicine 12/29/19 documented as of this encounter
--- OUTSIDE RECORDS SUMMARY | 2023-07-25 04:19 | External Medical Summary | Summary of Care ---
Author Name Unknown Organization [facility] Address [address] [facility] [address] Phone [phone] Care Team Providers Care Figure Model Name Role Phone Roger Alexandra MD Primary Care Provider [phone] [phone] Reason for Visit * Reason Onset Date Comments Medication Question 01/06/2023 Encounter Details Date Type Department Care Team Description 01/06/2023 Telephone Pharmacy Call Center [address] [place] [address] [facility] [address] [place] [address] Medication Question Allergies Active Allergy Reactions Severity Noted Date Comments Aspirin Unknown 12/12/2007 von Willebrand's disease Salicylates 03/01/2000 von Willebrand's disease documented as of this encounter (statuses as of 01/28/2023) Medications Medication Sig Dispensed Refills Start Date [...] Muscle spasms. 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 Pt is scheduled for a colonoscopy with you on 01/13/23 at [facility]. Pt is anticoagulated for Cerebrovascular disease. She has held without bridging in the past due to long periods of subtherapeutic INRs (previously approved by PCP for other procedures). Would a 3 day hold of Coumadin be sufficient for your procedure? Please let me know and I will advise pt. Thank you, Kim Mercado [facility], Pharm.D. Clinical Pharmacist Telepharmacy [phone] 01/06/2023,2:40 PM documented in this encounter Plan of Treatment Upcoming Encounters Date Type Specialty Care Team Description 01/29/2023 [facility] [address] [place] [address] 03/01/2023 Telemedicine Psychiatry Hugo Alcantara MD [address] [facility] [place] [address] 03/11/2023 Office Visit Neurology Hina Lion PA-Roz [address] [place] [address] 03/16/2023 Office Visit Pulmonary Alisha Carrero CRNP [address] [place] [address] 03/17/2023 PulmDiagnostic Pulmonary Function [place], Pft [address] [place] [address] 2023 Imaging Radiology 06/11/2023 Telemedicine Urology Juan José Walters MD [address] [place] [address] 07/07/2023 Office Visit Cardiology Jerry Pacheco DO [address] [place] [address] Scheduled Procedures Name Priority Associated Diagnoses Date/Ti [...] 02/16/2022 LUNG CANCER SCREENING - USE SMARTSET 75532 Completed 03/16/2022 Influenza Vaccine (FLU shot) Completed [...] filedocumented as of this encounter Care Teams Figure Model Relationship Specialty Start Date End Date Roger Alexandra MD [address] [place] [address] PCP - General Family Medicine 12/29/19 documented as of this encounter
--- OUTSIDE RECORDS SUMMARY | 2023-07-25 04:19 | External Medical Summary | Summary of Care ---
Author Name Unknown Organization [facility] Address [address] [place] [address] Phone [phone] Care Team Providers Care Loss Prevention Lead Name Role Phone Roger Alexandra MD Primary Care Provider +1 [phone] Encounter Details Date Type Department Care Team Description 02/03/2023 Orders Only Urology, [facility] 132 [facility] [place] [id number] Juan José Walters MD 27 [facility] [address] [place] [address] Urge incontinence*; Dysuria Allergies Active Allergy Reactions Severity Noted Date [...] morning. 30 Tablet 6 01/26/2023 Active Nystatin 242035 UNIT/GM External Powder ([facility]) apply to affected area twice a [...] Care Team Description 02/11/[address] [facility], [facility] Mobile Home Draw [address] [facility] [place] [address] 02/12/2023 [facility] Telepharmacy, [facility] [address] [place] [address] 03/01/2023 Telemedicine Psychiatry Hugo Alcantara MD [address] [place] [address] 03/11/2023 Office Visit Neurology Hina Lion PA-C [address] [place] [address] 03/16/2023 Office Visit Pulmonary Alisha Carrero CRNP [address] [place] [address] 03/17/2023 PulmDiagnostic Pulmonary Function [place], Pft [address] [place] [address] 2023 Imaging Radiology 06/11/2023 Telemedicine Urology Juan José Walters MD [address] [place] [id number] 07/07/2023 Office Visit Cardiology Jerry Pacheco DO [address] [place] [address] Scheduled Orders Name Type Priority Associated Diagnoses Orde r Schedule CULTURE, URINE, QUANTITATIVE Lab Routine Urge incontinence Dysuria Expected: 02/03/2023, Expires: 02/04/2024 Scheduled Procedures Name Priority Associated Diagnoses Date/Ti [...] 02/16/2022 LUNG CANCER SCREENING - USE SMARTSET 80486 Completed 03/16/2022 Influenza Vaccine (FLU shot) Completed [...] as of this encounter Visit Diagnoses Diagnosis Urge incontinence- Primary Dysuria documented in this encounter Care Teams Loss Prevention Lead Relationship Specialty Start Date End Date Roger Alexandra MD [address] [place] [address] PCP - General Family Medicine 12/29/19 documented as of this encounter
--- OUTSIDE RECORDS SUMMARY | 2023-07-25 04:19 | External Medical Summary ---
Author Name Unknown Address Unknown Organization [facility] [address] [place] [address] Laboratory Report Ordering Provider Test Date Status GRAYSON BIGGS 01/28/2023 10:27:00 Final Observation Date Value Abnormality Reference (Units ) Status PT 01/28/2023 10:27:00 26.6 Above high normal 11 .6-15.2 (seconds) Final INR 01/28/2023 10:27:00 2.4 Above high normal 0. 8-1.2 Final Performing Location [facility] [place] [facility] [address] [place] [address]
--- OUTSIDE RECORDS SUMMARY | 2023-07-25 04:19 | External Medical Summary | Summary of Care ---
Author Name Unknown Organization [facility] Address [address] [place] [address] Phone [phone] Care Team Providers Care Slab Conditioner Supervisor Name Role Phone Roger Alexandra MD Primary Care Provider [phone] [phone] Reason for Visit * Reason Onset Date Comments case management 02/03/2023 Encounter Details Date Type Department Care Team Description 02/03/2023 Geometry Tutor Telephone Family [facility] [address] [place] [address] Yara Morris, care management associate Allergies Active Allergy Reactions Severity Noted Date [...] 90 Tablet 3 02/16/2022 Active oxygen IN GASIndications:Publishing Editor 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 respiratory failure (HCC),COPD, group D, [...] morning. 30 Tablet 6 01/26/2023 Active Nystatin 494652 UNIT/GM External Powder (Nyamyc) apply to affected [...] messages are not going throughour staff. Thanks, HM * Telephone Encounter - Yara [...] would be appropriate?) Thank you! She uses [employer]. * Telephone Encounter - Juan José [...] who will place order for UA. Called [facility] and spoke with Abiodun, they are scheduled to see the patient tomorrow. Will fax order forUA via straight cath to their office at #[phone] documented in this encounter Plan of Treatment Upcoming Encounters Date Type Specialty Care Team Description 02/11/2023 Laboratory Laboratory [facility] Mobile Home Draw [address] [facility] [place] [address] 02/12/2023 [facility] [address] [facility] [address] 03/01/2023 Telemedicine Psychiatry Hugo Alcantara MD [address] [place] [address] 03/11/2023 Office Visit Neurology Hina Lion PA-C [address] [place] [address] 03/16/2023 Office Visit Pulmonary Alisha Carrero CRNP [address] [place] [address] 03/17/2023 PulmDiagnostic Pulmonary Function [place], Pft [address] [place] [address] 2023 Imaging Radiology 06/11/2023 Telemedicine Urology Juan José Walters MD [address] [place] [address] 07/07/2023 Office Visit Cardiology Jerry Pacheco DO [address] [place] [address] Scheduled Procedures Name Priority Associated Diagnoses Date/Ti [...] 02/16/2022 LUNG CANCER SCREENING - USE SMARTSET 63839 Completed 03/16/2022 Influenza Vaccine (FLU shot) Completed [...] filedocumented as of this encounter Care Teams Slab Conditioner Supervisor Relationship Specialty Start Date End Date Roger Alexandra MD [address] [place] [address] PCP - General Family Medicine 12/29/19 documented as of this encounter
--- OUTSIDE RECORDS SUMMARY | 2023-07-25 04:19 | External Medical Summary | Summary of Care ---
Author Name Unknown Organization [facility] Address [address] [place] [address] Phone [phone] Care Team Providers Care Photogrammetric Engineer Name Role Phone Roger Alexandra MD Primary Care Provider [phone] [phone] Encounter Details Date Type Department Care Team Description 01/27/2023 Telephone Urology, [facility] 132 [facility] [place] [address] Juan José Walters MD 27 [facility] [address] [place] [address] Allergies Active Allergy Reactions Severity Noted Date Comments Aspirin Unknown 12/12/2007 von Willebrand's disease Salicylates 03/01/2000 von Willebrand's disease documented as of this encounter (statuses as of 01/27/2023) Medications Medication Sig Dispensed Refills Start Date [...] PD, group D, by GOLD 2017 classification ([facility]),Chronic hypoxemic respiratory failure ([facility]) Use with nebulized meds 1 Each 0 09/16/2022 Active Full Kit Nebulizer SetIndications:COPD, group D, by GOLD 2017 classification ([facility] [...] spasms. 90 Tablet 0 12/31/2022 Active Nystatin 269770 UNIT/GM External Powder (Nyamyc) apply to affected area twice a day 15 g 1 12/31/2022 Active Isosorbide Mononitrate ER 30 MG [...] the morning. 30 Tablet 6 01/26/2023 Active documented as of this encounter (statuses as of 01/27/2023) Active Problems Problem Noted Date Decreased functional [...] as of this encounter (statuses as of 01/27/2023) Resolved Problems Problem Noted Date Resolved Date [...] as of this encounter (statuses as of 01/27/2023) Immunizations Name Administration Dates Next Due H1N1 [...] * Telephone Encounter - RUFINA Holland - 01/27/2023 1:44 PM EDT Appt has been scheduled * Telephone Encounter - Tracey Cabrera LPN - 01/27/2023 1:39 PM EDT Please contact patient to schedule follow up appt. Return in about 4 months (around 2023). Thank you Ammy documented in this encounter Plan of Treatment Upcoming Encounters Date Type Specialty Care Team Description 01/28/2023 Laboratory Laboratory Processing [facility], [facility] Mobile Home Draw [address] [place] [address] 01/29/2023 [facility] [address] [place] [address] 03/01/2023 Telemedicine Psychiatry Hugo Alcantara MD [address] [place] [address] 03/11/2023 Office Visit Neurology Hina Lion PA-C [address] [place] [address] 03/16/2023 Office Visit Pulmonary Alisha Carrero CRNP [address] [place] [address] 03/17/2023 PulmDiagnostic Pulmonary Function [place], Pft [address] [place] [address] 2023 Imaging Radiology 06/11/2023 Telemedicine Urology Juan José Walters MD [address] [place] [id number] 07/07/2023 Office Visit Cardiology Jerry Pacheco DO [address] [place] [address] Scheduled Procedures Name Priority Associated Diagnoses Date/Ti [...] 02/16/2022 LUNG CANCER SCREENING - USE SMARTSET 42561 Completed 03/16/2022 Influenza Vaccine (FLU shot) Completed [...] filedocumented as of this encounter Care Teams Photogrammetric Engineer Relationship Specialty Start Date End Date Roger Alexandra MD [address] [place] [address] PCP - General Family Medicine 12/29/19 documented as of this encounter
--- OUTSIDE RECORDS SUMMARY | 2023-07-25 04:19 | External Medical Summary | Summary of Care ---
Author Name Unknown Organization [facility] Address [address] [place] [address] Phone [phone] Care Team Providers Care Halver Machine Operator Name Role Phone Roger Alexandra MD Primary Care Provider +1 [phone] Reason for Visit * Reason Comments Outpatient Testing Encounter Details Date Type Department Care Team Description 02/04/2023 Laboratory Laboratory, [facility] 132 [facility] [place] [address] [facility] 132 [facility] [place] [id number] Urge incontinence; Dysuria Allergies Active Allergy Reactions Severity Noted [...] morning. 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 use 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 0 [...] Care Team Description 02/11/2023 Laboratory Laboratory Processing [facility], [facility] Mobile Home Draw 400 [facility] [place] [address] 02/12/2023 [facility] 60 [facility] [address] 03/01/2023 Telemedicine Psychiatry Hugo [facility]antara MD [address] [facility] [address] 03/11/2023 Office Visit Neurology Hina Lion PA-C [address] [place] [facility] [place] [address] 03/16/2023 Office Visit Pulmonary Alisha Carrero CRNP [address] [place] [address] 03/17/2023 PulmDiagnostic Pulmonary Function [place], Pft [address] [place] [address] 2023 Imaging Radiology 06/11/2023 Telemedicine Urology Juan José Walters MD [address] [place] [address] 07/07/2023 Office Visit Cardiology Jerry Pacheco DO [address] [place] [address] Pending Results Name Type Priority Associated Diagnoses Date /Time CULTURE, URINE, QUANTITATIVE Lab Routine Urge incontinence Dysuria 02/04/2023 10:30 AM EDT Scheduled Procedures Name Priority Associated Diagnoses [...] 02/16/2022 LUNG CANCER SCREENING - USE SMARTSET 54017 Completed 03/16/2022 Influenza Vaccine (FLU shot) Completed [...] of this encounter Visit Diagnoses Diagnosis Urge incontinence Dysuria documented in this encounter Care Teams Halver Machine Operator Relationship Specialty Start Date End Date Roger Alexandra MD [address] [place] [address] PCP - General Family Medicine 12/29/19 documented as of this encounter
--- OUTSIDE RECORDS SUMMARY | 2023-07-25 04:19 | External Medical Summary | Summary of Care ---
Author Name Unknown Organization [facility] Address [address] [place] [address] Phone [phone] Care Team Providers Care Senior Clinical Research Scientist Name Role Phone Roger Alexandra MD Primary Care Provider [phone] [phone] Encounter Details Date Type Department Care Team Description 01/27/2023 Telephone Urology, [facility] 132 [facility] [place] [address] Juan José Walters MD 27 [facility] [address] [place] [address] Allergies Active Allergy Reactions Severity Noted [...] D, by GOLD 2017 classification ([facility]),Chronic hypoxemic respiratory failure ([facility]) Use with nebulized meds 1 Each 0 09/16/2022 Active Full Kit Nebulizer SetIndications:COPD, group D, by GOLD 2017 classification ([facility]),Chronic hypoxemic respiratory failure ([facility]) Use with nebulizer 1 Each [...] spasms. 90 Tablet 0 12/31/2022 Active Nystatin 776592 UNIT/GM External Powder (Nyamyc) apply to affected [...] Team Description 01/28/2023 Laboratory Laboratory Processing [facility], [facility] Mobile Home Draw [address] [place] [address] 01/29/2023 [facility] 58 [address] [place] [address] 03/01/2023 Telemedicine Psychiatry Hugo Alcantara MD [address] [place] [address] 03/11/2023 Office Visit Neurology Hina Lion PA-C [address] [place] [address] 03/16/2023 Office Visit Pulmonary Alisha Carrero CRNP [address] [place] [address] 03/17/2023 PulmDiagnostic Pulmonary Function [place], Pft [address] [place] [address] 2023 Imaging Radiology 06/11/2023 Telemedicine Urology Juan José Walters MD [address] [place] [phone] 07/07/2023 Office Visit Cardiology Jerry Pacheco DO [address] [place] [address] Scheduled Procedures Name Priority Associated Diagnoses Date/Ti [...] 02/16/2022 LUNG CANCER SCREENING - USE SMARTSET 90476 Completed 03/16/2022 Influenza Vaccine (FLU shot) Completed [...] filedocumented as of this encounter Care Teams Senior Clinical Research Scientist Relationship Specialty Start Date End Date Roger Alexandra MD [address] [place] [address] PCP - General Family Medicine 12/29/19 documented as of this encounter
--- OUTSIDE RECORDS SUMMARY | 2023-07-25 04:19 | External Medical Summary ---
Author Name Unknown Address Unknown Organization K01:LABORATORY C - [address] [facility] [place] [address] Laboratory Report Ordering Provider Test Date Status YOLI ERICKSON 02/04/2023 10:30:15 Final Observation Date Value Abnormality Reference (Units ) Status Bacteria identified in Unspecified specimen by Culture 02/04/2023 10:30:15 [id number]^ESCHE RICHIA COLI Abnormal Final Performing Location LAB[facility] - [address] [facility] [address] Ordering Provider Test Date Status YOLI ERICKSON 02/04/2023 10:30:15 Final Observation Date Value Abnormality Reference (Units ) Status Ampicillin 02/04/2023 10:30:15 <=2 Susceptible Final Cefazolin 02/04/2023 10:30:15 <=4 Susceptible Final Cefepime susceptibility 02/04/2023 10:30:15 <=1 Susceptible Final Ceftriaxone suceptibility 02/04/2023 10:30:15 <=1 Susceptible Final Ciprofloxacin 02/04/2023 10:30:15 <=0.25 Susceptible Final Performing Location LABORATORY [facility] - [address] [facility] [address]
--- OUTSIDE RECORDS SUMMARY | 2023-07-25 04:19 | External Medical Summary | Summary of Care ---
Author Name Unknown Organization [facility] Address [address] [place] [address] Phone [phone] Care Team Providers Care Survey Crew Chief Name Role Phone Roger Alexandra MD Primary Care Provider +1 [phone] Reason for Visit * Reason Onset Date Comments case management 02/03/2023 Encounter Details Date Type Department Care Team Description 02/03/2023 Director Digital Telephone Family [facility] [address] [place] [address] Yara Morris, customer management specialist Allergies Active Allergy Reactions Severity Noted Date [...] morning. 30 Tablet 6 01/26/2023 Active Nystatin 525536 UNIT/GM External Powder ([facility]) apply to affected area twice a [...] who will place order for UA. Called [facility] and spoke with Abiodun, they are scheduled to see the patient tomorrow. Will fax order forUA via straight cath to their office at #[phone] documented in this encounter Plan of Treatment Upcoming Encounters Date Type Specialty Care Team Description 02/11/2023 Laboratory Laboratory Processing [facility], [facility] Mobile Home Draw 400 [facility] [place] [address] 02/12/2023 [facility] 58 60 [place] [address] 03/01/2023 Telemedicine Psychiatry Hugo Alcantara MD [address] [place] [address] 03/11/2023 Office Visit Neurology Hina Lion PA-C [address] [place] [address] 03/16/2023 Office Visit Pulmonary Alisha Carrero CRNP [address] [place] [address] 03/17/2023 PulmDiagnostic Pulmonary Function [place], Pft [address] [place] [address] 2023 Imaging Radiology 06/11/2023 Telemedicine Urology Juan José Walters MD [address] [place] [address] 07/07/2023 Office Visit Cardiology Jerry Pacheco DO [address] [place] [address] Scheduled Procedures Name Priority Associated Diagnoses Date/Ti [...] 02/16/2022 LUNG CANCER SCREENING - USE SMARTSET 77298 Completed 03/16/2022 Influenza Vaccine (FLU shot) Completed [...] filedocumented as of this encounter Care Teams Survey Crew Chief Relationship Specialty Start Date End Date Roger Alexandra MD [address] [place] [address] PCP - General Family Medicine 12/29/19 documented as of this encounter
--- OUTSIDE RECORDS SUMMARY | 2023-07-25 04:19 | External Medical Summary | Summary of Care ---
Author Name Unknown Organization [facility] Address [address] [place] [address] Phone [phone] Care Team Providers Care Welder Production Line Arc Name Role Phone Roger Alexandra MD Primary Care Provider [phone] [phone] Reason for Visit * Reason Comments Dosage Adjustment Via Phone (anticoag Cl inic) Encounter Details Date Type Department Care Team Description 01/29/2023 Anticoagulation Pharmacy Call Center [address] [facility] [place] [address] [facility] [address] [place] [address] Anticoagulation management encounter* Allergies Active Allergy Reactions [...] morning. 30 Tablet 6 01/26/2023 Active Nystatin 068091 UNIT/GM External Powder ([facility]) apply to affected area twice a day [...] encounter Progress Notes * RUFINA Vela - 01/29/2023 4:04 PM EDT Contacts Type Contact Phone/Fax 01/29/2023 04:02 PM EDT Phone (Outgoing) Kimberly Kendall (Self) [phone] (M) Left Message Advised patient to contact Anticoagulation Clinic if any unusual bruising or bleeding, recent illness, changes in medication, or questions/concerns. PT/INR results, Coumadin dose instructions, and next PT/INR date communicated as noted by Pharmacist: Yes RUFINA Vela 01/29/2023, 4:04 PM * Kim Mercado RPh - 01/29/2023 8:58 AM EDT Coumadin Clinic (region specific) Current Warfarin Dose As of 01/29/2023 Warfarin maintenance plan: 5 mg (5 mg x 1) every day INR Result As of 01/29/2023 INR goal: 2.0-3.0 INR used for dosin.4 (01/28/2023) Warfarin Plan As of 01/29/2023 Full warfarin instructions: 5 mg every day No change documented: Kim Mercado RPh Next INR check: 02/11/2023 Repeat PT/INR in 2 week(s) Weekly dose: not changed Additional Dosing Information: Description [facility] Also sent MyG after trying to call 01/13/23 2NDNATURE to contact patient with dose instructions as noted. Kim Mercado RPh 01/29/2023, 8:58 AM documented in this encounter Plan of Treatment Upcoming Encounters Date Type Specialty Care Team Description 02/11/2023 Laboratory Laboratory Processing [facility], [facility] Mobile Home Draw [address] [place], [place] [id number] 02/12/2023 [facility] [address] [place] [address] 03/01/2023 Telemedicine Psychiatry Hugo Alcantara MD [address] [place] [address] 03/11/2023 Office Visit Neurology Hina Lion PA-C [address] [place] [address] 03/16/2023 Office Visit Pulmonary Alisha Carrero CRNP [address] [place] [address] 03/17/2023 PulmDiagnostic Pulmonary Function West, Pft [address] [place] [address] 2023 Imaging Radiology 06/11/2023 Telemedicine Urology Juan José Walters MD [address] [place] [address] 07/07/2023 Office Visit Cardiology Jerry Pacheco, DO [address] [place] [address] Scheduled Procedures Name Priority Associated Diagnoses Date/Ti [...] 02/16/2022 LUNG CANCER SCREENING - USE SMARTSET 67618 Completed 03/16/2022 Influenza Vaccine (FLU shot) Completed [...] monitoring documented in this encounter Care Teams Welder Production Line Arc Relationship Specialty Start Date End Date Roger Alexandra MD [address] [place] [address] PCP - General Family Medicine 12/29/19 documented as of this encounter
--- OUTSIDE RECORDS SUMMARY | 2023-07-25 04:20 | External Medical Summary | Summary of Care ---
Author Name Unknown Organization [facility] Address [address] [place] [address] Phone [phone] Care Team Providers Care Senior Chemist Name Role Phone Roger Alexandra MD Primary Care Provider [phone] [phone] Encounter Details Date Type Department Care Team Description 01/13/2023 Procedure Only Endoscopy, [facility] [address] [place] [address] Shaneka Santiago MD [address] [place] [address] Screening for alcoholism* Allergies Active Allergy Reactions Severity Noted Date Comments Aspirin Unknown 12/12/2007 von Willebrand's disease Salicylates 03/01/2000 von Willebrand's disease documented as of this encounter (statuses as of 01/18/2023) Medications Medication Sig Dispensed Refills Start Date End Date Status Warfarin Sodium 5 MG Oral Tablet (Coumadin)Indicatio ns:Paroxysmal atrial fibrillation (HCC) Take by mouth 1 Tablet in the evening. OR As directed by coumadin clinic. 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),Chronic hypoxemic respiratory failure ([facility]) Use with nebulized meds 1 Each 0 2 Active Full Kit Nebulizer SetIndications:COPD , group D, by GOLD 2017 classification ([facility]),Chronic hypoxemic respiratory failure ([facility]) Use with nebulizer 1 Each 0 2 [...] for Wheezing. 90 mL 3 2 Active Bumetanide 1 MG Oral Tablet Take 1 Tablet (1 mg) by mouth in the morning. 90 Tablet 3 2 Active Potassium Chloride ER 10 [...] before bedtime. 120 Tablet 2 3 Active traMADol HCl 50 MG Oral Tablet (Ultram)Indications :Chronic bilateral low back pain without sciatica Take 2 Tablets by mouth every 8 hours as needed for Pain, Moderate. 180 Tablet 0 3 Active Baclofen 10 MG Oral Tablet (Lioresal)Indicatio ns:Chronic bilateral low back pain without sciatica Take 1 Tablet by mouth 3 times a day as needed for Muscle spasms. 90 Tablet 0 3 Active Nystatin 608531 UNIT/GM External Powder (Nyamyc) apply to affected area twice a day 15 g 1 3 Active Isosorbide Mononitrate ER 30 MG Oral Tablet Extended Release 24 Hour (Imdur) take 1 tablet by mouth daily 30 Tablet 5 3 Active Furosemide 20 MG Oral Tablet (Lasix)Indications: Chronic diastolic CHF (congestive heart failure) (HCC) Take 1 Tablet by mouth daily as needed (for swelling of legs). 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 current use 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 0 06/01/2005 [...] as of this encounter (statuses as of 01/18/2023) Immunizations Name Administration Dates Next Due H1N1 [...] Encounters Date Type Specialty Care Team Description 01/19/2023 Laboratory Laboratory Processing [facility] [address] [facility] [address] 01/20/2023 Pharmacy Pharmacy Pharmacist2, [facility] [address] [place] [address] 01/21/2023 Anticoagulation Pharmacy Telepharmacy, [facility] 58 60 [facility] [place] [address] 01/26/2023 Telemedicine Urology Juan José Walters MD [address] [place] [address] 03/01/2023 Telemedicine Psychiatry Hugo Alcantara MD [address] [place] [address] 03/11/2023 Office Visit Neurology Hina Lion PA-Roz [address] [place] [address] 03/16/2023 Office Visit Pulmonary Alisha Carrero CRNP [address] [place] [address] 03/17/2023 PulmDiagnostic Pulmonary Function West, Pft [address] [place] [address] 07/07/2023 Office Visit Cardiology Jerry Pacheco DO [address] [place] [address] Scheduled Procedures Name Priority Associated Diagnoses [...] 02/16/2022 LUNG CANCER SCREENING - USE SMARTSET 70620 Completed 03/16/2022 Influenza Vaccine (FLU shot) Completed [...] Procedure Name Priority Date/Time Associated Diagnosis Comments COLONOSCOPY 01/13/2023 documented in this encounter Results * COLONOSCOPY (01/13/2023) 01/13/2023 Shaneka Santiago MD GASTRO LOWER documented in this encounter Visit Diagnoses Diagnosis Screening for alcoholism- Primary documented in this encounter Care Teams Senior Chemist Relationship Specialty Start Date End Date Roger Alexandra MD [address] [place] [address] PCP - General Family Medicine 12/29/19 documented as of this encounter
--- OUTSIDE RECORDS SUMMARY | 2023-07-25 04:20 | External Medical Summary | Summary of Care ---
Author Name Unknown Organization [facility] Address [address] [place] [address] Phone [phone] Care Team Providers Care Direct Marketing Coordinator Name Role Phone Roger Alexandra MD Primary Care Provider [phone] [phone] Encounter Details Date Type Department Care Team Description 01/19/2023 Orders Only Lab Mobile Phlebotomy [facility] [address] [place], [place] [id number] Kim Mercado, [facility] [address] [place] [address] Paroxysmal atrial fibrillation (HCC)* Allergies Active Allergy Reactions Severity Noted Date Comments Aspirin Unknown 12/12/2007 von Willebrand's disease Salicylates 03/01/2000 von Willebrand's disease documented as of this encounter (statuses as of 01/19/2023) Medications Medication Sig Dispensed Refills Start Date [...] GOLD 2017 classification ([facility]),Chronic hypoxemic respiratory failure ([facility]) Use with nebulized meds 1 Each 0 09/16/2022 Active Full Kit Nebulizer SetIndications:COPD, group D, by GOLD 2017 classification ([facility]),Chronic hypoxemic respiratory failure ([facility]) Use with nebulizer 1 Each 0 09/16/2022 [...] for Wheezing. 90 mL 3 09/29/2022 Active Bumetanide 1 MG Oral Tablet Take 1 Tablet (1 mg) by mouth in the morning. 90 Tablet 3 09/30/2022 Active Potassium Chloride ER 10 MEQ Oral [...] before bedtime. 120 Tablet 2 12/16/2022 Active traMADol HCl 50 MG Oral Tablet (Ultram)Indications: Chronic bilateral low back pain without sciatica Take 2 Tablets by mouth every 8 hours as needed for Pain, Moderate. 180 Tablet 0 12/22/2022 Active Baclofen 10 MG Oral Tablet (Lioresal)Indication s:Chronic bilateral low back pain without sciatica Take 1 Tablet by mouth 3 times a day as needed for Muscle spasms. 90 Tablet 0 12/31/2022 Active Nystatin 286684 UNIT/GM External Powder (Nyamyc) apply to affected [...] LEG SWELLING 30 Tablet 0 01/14/2023 Active documented as of this encounter (statuses as of 01/19/2023) Active Problems Problem Noted Date Decreased functional [...] as of this encounter (statuses as of 01/19/2023) Resolved Problems Problem Noted Date Resolved Date [...] as of this encounter (statuses as of 01/19/2023) Immunizations Name Administration Dates Next Due H1N1 [...] Care Team Description 01/19/[address] [facility] Mobile Home Draw [address] [place] [address] Paroxysmal atrial fibrillation (HCC) 01/20/2023 Pharmacy Pharmacy Pharmacist2, [facility] [address] [place] [address] 01/21/2023 Anticoagulation Pharmacy Telepharmacy, [facility] [address] 60 [facility] [place] [address] 01/26/2023 Telemedicine Urology Juan José Walters MD 27 [facility] [address] [place] [address] 03/01/2023 Telemedicine Psychiatry Hugo Alcantara MD [address] [place], [place] [address] 03/11/2023 Office Visit Neurology Hina Lion PA-C [address] [facility], [place] [address] 03/16/2023 Office Visit Pulmonary Alisha [facility] CRNP [address] [facility] [address] 03/17/2023 PulmDiagnostic Pulmonary Function West, Pft [address] [place] [address] 07/07/2023 Office Visit Cardiology Jerry Pacheco DO [address] [facility] [address] Scheduled Orders Name Type Priority Associated Diagnoses Orde r Schedule PT INR Lab Routine Paroxysmal atrial fibrillation (HCC) Expected: 01/19/2023, Expires: 01/20/2024 Scheduled Procedures Name Priority Associated Diagnoses Date/Ti [...] 02/16/2022 LUNG CANCER SCREENING - USE SMARTSET 77883 Completed 03/16/2022 Influenza Vaccine (FLU shot) Completed [...] fibrillation documented in this encounter Care Teams Direct Marketing Coordinator Relationship Specialty Start Date End Date Roger Alexandra MD [address] [place] [address] PCP - General Family Medicine 12/29/19 documented as of this encounter
--- OUTSIDE RECORDS SUMMARY | 2023-07-25 04:20 | External Medical Summary | Summary of Care ---
Author Name Unknown Organization [facility] Address [address] [facility] [address] Phone [phone] Care Team Providers Care Dry End Tester Name Role Phone Roger Alexandra MD Primary Care Provider [phone] [phone] Reason for Visit * Reason Comments eRx-Medication Refill Encounter Details Date Type Department Care Team Description 01/14/2023 Refill Family Practice [facility] [address] [place] [address] Roger Alexandra MD 132 [facility] [place] [address] Chronic diastolic CHF (congestive heart failure) (HCC) Allergies Active Allergy Reactions Severity Noted Date Comments Aspirin Unknown 12/12/2007 von Willebrand's disease Salicylates 03/01/2000 von Willebrand's disease documented as of this encounter (statuses as of 01/14/2023) Medications Medication Sig Dispensed Refills Start Date End Date Status Warfarin Sodium 5 MG Oral Tablet (Coumadin)Indicatio ns:Paroxysmal atrial fibrillation (HCC) Take by mouth 1 Tablet in the evening. OR As directed by coumadin clinic. 90 Tablet 3 2 Active oxygen IN GASIndications:Rotor Winder 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 90 Tablet 0 3 Active Nystatin 970931 UNIT/GM External Powder ([facility] apply to affected area twice a day 15 g 1 3 Active Isosorbide Mononitrate ER 30 MG Oral Tablet Extended Release 24 Hour (Imdur) take 1 tablet by mouth daily 30 Tablet 5 3 Active Furosemide 20 MG Oral Tablet (Lasix)Indications: Chronic diastolic CHF (congestive heart failure) ([facility]) take 1 tablet by mouth once daily if needed for LOWER LEG SWELLING 30 Tablet 0 3 Active Furosemide 20 MG Oral Tablet (Lasix)Indications: Chronic diastolic CHF (congestive heart failure) (HCC) Take 1 Tablet by mouth daily as needed (for swelling of legs). Take once daily as needed for swelling of legs 30 Tablet 0 3 01/15/20 23 Discontinued documented as of this encounter (statuses as of 01/14/2023) Active Problems Problem Noted Date Decreased functional [...] as of this encounter (statuses as of 01/14/2023) Resolved Problems Problem Noted Date Resolved Date [...] as of this encounter (statuses as of 01/14/2023) Immunizations Name Administration Dates Next Due H1N1 [...] encounter Miscellaneous Notes * Telephone Encounter - Matt Mathew DO - 01/14/2023 5:14 PM ESTSigned Prescriptions: Disp Refills Furosemide 20 MG Oral Tablet (Lasix) 30 Tab*0 Sig: take 1 tablet by mouth once daily if needed for LOWER LEG SWELLING Authorizing Provider: MATT MATHEW * Telephone Encounter - Aly Bryant [facility] - 01/14/2023 4:35 PM ESTPending Prescriptions: Disp Refills Furosemide 20 MG Oral Tablet [Pharmacy Med*30 Tab*0 Sig: take 1 tablet by mouth once daily if needed for LOWER LEG SWELLING * Telephone Encounter - Aly Bryant [facility] - 01/14/2023 4:35 PM EST Pending Prescriptions: Disp Refills Furosemide 20 MG Oral Tablet [Pharmacy Med*30 Tab*0 Sig: take 1 tablet by mouth once daily if needed for LOWER LEG SWELLING Last Visit: 09/30/2022 (in office), 12/16/2022 (telemedicine) Next Visit: Visit date not found If no future appointments scheduled, and last appointment is greater than a year ago, please schedule patient for a follow-up appointment Last date the medication was ordered: 12-24-22 Pharmacy: [facility] [id number] Is this request for a controlled [...] Care Team Description 01/19/2023 Laboratory Laboratory Processing [facility] Mobile Home Draw [address] [place] [address] 01/20/2023 Pharmacy Pharmacy Pharmacist, [facility] 200 [facility] [place] [address] 01/21/2023 Anticoagulation Pharmacy Telepharmacy, [facility] [address] [place] [address] 01/26/2023 Telemedicine Urology Juan José Walters MD [address] [facility] [place] [address] 03/01/2023 Telemedicine Psychiatry Hugo Alcantara MD [address] [place] [address] 03/11/2023 Office Visit Neurology Hina Lion PA-C [address] [place] [address] 03/16/2023 Office Visit Pulmonary Alisha Carrero CRNP 132 [facility] [place] [address] 03/17/2023 PulmDiagnostic Pulmonary Function West, [address] [place] [address] 07/07/2023 Office Visit Cardiology Jerry Pacheco, DO [address] [place] [address] Health Maintenance Due Date Last Done Comments [...] 02/16/2022 LUNG CANCER SCREENING - USE SMARTSET 20335 Completed 03/16/2022 Influenza Vaccine (FLU shot) Completed [...] failure documented in this encounter Care Teams Dry End Tester Relationship Specialty Start Date End Date Roger Alexandra MD [address] [place] [address] PCP - General Family Medicine 12/29/19 documented as of this encounter
--- OUTSIDE RECORDS SUMMARY | 2023-07-25 04:20 | External Medical Summary | Summary of Care ---
Author Name Unknown Organization [facility] Address [address] [facility] [address] Phone [phone] Care Team Providers Care Assistant Store Leader Name Role Phone Roger Alexandra MD Primary Care Provider +1 [phone] Reason for Visit * Reason Comments Dosage Adjustment Via Phone (anticoag Cl inic) Encounter Details Date Type Department Care Team Description 01/20/2023 Pharmacy Pharmacy, [facility] [address] [place] [address] Pharmacist2, [facility] [address] [place] [address] Type 2 diabetes mellitus with hemoglobin A1c goal of less than 7.0% ([facility])* Allergies Active Allergy Reactions Severity Noted Date Comments Aspirin Unknown 12/12/2007 von Willebrand's disease Salicylates 03/01/2000 von Willebrand's disease documented as of this encounter (statuses as of 01/20/2023) Medications Medication Sig Dispensed Refills Start Date [...] spasms. 90 Tablet 0 12/31/2022 Active Nystatin 434701 UNIT/GM External Powder (Nyamyc) apply to affected [...] as of this encounter (statuses as of 01/20/2023) Active Problems Problem Noted Date Decreased functional [...] as of this encounter (statuses as of 01/20/2023) Resolved Problems Problem Noted Date Resolved Date [...] 02/04/2006 12/21/2008 Atrial septal aneurysm 02/04/2006 9 [facility] current use 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 0 06/01/2005 [...] as of this encounter (statuses as of 01/20/2023) Immunizations Name Administration Dates Next Due H1N1 [...] of this encounter Progress Notes * DANIEL Ramirez - 01/20/2023 10:12 AM EST Patient Phone Numbers Spoke with patient to schedule MTD appointment for polypharm management. Appointment scheduled as noted below. 01/27/2023 Thank you, Solange Arias Finance Intern Smooth Khan 01/20/2023, 10:12 AM documented in this encounter Plan of Treatment Upcoming Encounters Date Type Specialty Care Team Description 01/21/2023 [facility] 58 60 [facility] [place] [address] 01/26/2023 Telemedicine Urology Juan José Walters MD [address] [place] [address] 01/27/2023 Telemedicine Pharmacy Pharmacist2, [facility] Sp [address] [place] [address] 03/01/2023 Telemedicine Psychiatry Hugo Alcantara MD [address] [place] [address] 03/11/2023 Office Visit Neurology Hina Lion PA-C [address] [place] [address] 03/16/2023 Office Visit Pulmonary Alisha Carrero CRNP [address] [place] [address] 03/17/2023 PulmDiagnostic Pulmonary Function West, Pft [address] [place] [address] 07/07/2023 Office Visit Cardiology Jerry Pacheco DO [address] [place] [address] Scheduled Procedures Name Priority Associated Diagnoses Date/Ti [...] 02/16/2022 LUNG CANCER SCREENING - USE SMARTSET 32635 Completed 03/16/2022 Influenza Vaccine (FLU shot) Completed [...] Primary documented in this encounter Care Teams Assistant Store Leader Relationship Specialty Start Date End Date Roger Alexandra MD [address] [place] [address] PCP - General Family Medicine 12/29/19 documented as of this encounter
--- OUTSIDE RECORDS SUMMARY | 2023-07-25 04:20 | External Medical Summary | Summary of Care ---
Author Name Unknown Organization [facility] Address [address] [place] [address] Phone [phone] Care Team Providers Care Biomedical Engineer Name Role Phone Jeevan Alexandra MD Primary Care Provider [phone] Reason for Visit * Evaluate & Treat - Unlimited Visits (Within 10 days (routine)) - Authorized Specialty Diagnoses / Procedures Referred By Anna hendrix Referred To Contact Urology Diagnoses Dysuria Overactive bladder Jeevan Alexandra [facility] [address] [facility] [place] [address] Referral ID Status Reason Start Date Expiration Date Visits Requested Visits Authorized [id number] Authorized Specialty Services Required 12/23/[phone] Encounter Details Date Type Department Care Team Description 01/26/2023 Telemedicine Urology, [facility] [address] [place] [address] Juan José Walters MD [address] [facility] [address] [place] [address] Urge incontinence* Allergies Active Allergy Reactions Severity Noted Date Comments Aspirin Unknown 12/12/2007 von Willebrand's disease Salicylates 03/01/2000 von Willebrand's disease documented as of this encounter (statuses as of 01/26/2023) Medications Medication Sig Dispensed Refills Start Date End Date Status Warfarin Sodium 5 MG Oral Tablet (Coumadin)Indication s:Paroxysmal atrial fibrillation (HCC) Take by mouth 1 Tablet in the evening. OR As directed by coumadin clinic. 90 Tablet 3 02/16/2022 Active oxygen IN GASIndications:Chron ic hypoxemic respiratory failure (HCC),COPD, group D, by GOLD 2017 classification ([facility]) Use 2 LPM at rest, 4 LPM [...] spasms. 90 Tablet 0 12/31/2022 Active Nystatin 755946 UNIT/GM External Powder (Nyamyc) apply to affected [...] as of this encounter (statuses as of 01/26/2023) Active Problems Problem Noted Date Decreased functional [...] as of this encounter (statuses as of 01/26/2023) Resolved Problems Problem Noted Date Resolved Date [...] as of this encounter (statuses as of 01/26/2023) Immunizations Name Administration Dates Next Due H1N1 [...] Notes * Juan José Walters MD - 01/26/2023 3:57 PM EDT [id number] PCP: JEEVAN ALEXANDRA [address] [place] [address] [phone] Patient location: HOME. I was in a hospital or clinic location. After connecting through televideo,patient was verified with two unique identifiers. Patient (or authorized legal inside sales account representative) was then informed that this was a Telemedicine visit and being conducted confidentially over secure lines. Methods to assure confidentiality were taken. Patient acknowledged consent and understanding of pr ivacy and security of the Telemedicine visit. The patient agreed to participate. Kimberly Kendall is a comorbid 62 year old female, who presents in referral for evaluation of incontinence and UTI. She notes a history of incontinence since CVA. Patient's BMI 53 is appreciated.Past notes with Dr. Fierro are reviewed, fluid elimination was attempted that that time with no success. Patient is a poor historian, does not recall taking medication for urinary incontinence in the past. CT scan abdomen and pelvis performed December 2021, images personally reviewed demonstratingno significant urologic abnormalities. Urinary Incontinence: Patient is being seen for urinary incontinence. Problem has been present for years. Severity is high. Problem is about the same. Urinary incontinence is urge incontinence. They are using 3-5 pads a day, soaked. They have used nomedications for incontinence. UTI: CT scan December 2021 demonstrates no stones, hydronephrosis or abnormalities. Urine culture October 2022: Culture Growth >100,000 colonies/mL Escherichia coliAbnormal <10,000 colonies/ml normal malik, one colony type Resulting Agency: Susceptibility Escherichia coli [employer] Ampicillin Susceptible Cefazolin Susceptible Cefepime Susceptible Ceftriaxone Susceptible Ciprofloxacin Susceptible 1 Gentamicin Susceptible Nitrofurantoin Susceptible Piperacillin Tazobactam Susceptible Trimeth/Sulfamethoxazole Susceptible Current Outpatient Medications Medication Sig Dispense Refill [...] 2 Puffs before bedtime. 18 g 1 Ipratropium-Albuterol 0.5-2.5 (3) MG/3ML Inhalation Solution (Duoneb) Inhale 3 mL by mouth every 6 hours as needed for Wheezing. 90 mL 3 Bumetanide 1 MG Oral Tablet Take 1 Tablet (1 mg) by mouth in the morning. 90 Tablet 3 Potassium Chloride ER 10 MEQ Oral Capsule [...] or Shortness of Breath. 540 mL 12 Vitron-C 65-125 MG Oral Tablet (Iron-Vitamin C 65-125 mg per tab) Take 1 Tablet by mouth in themorning. 30 Tablet 11 Fluticasone-Salmeterol 115-21 MCG/ACT Inhalation Aerosol (Advair Hfa) Inhale 2 Puffs by mouth in the morning and 2 Puffs before bedtime. 12 g 12 Mirtazapine 30 MG Oral Tablet (Remeron) Take 1.5 Tablets by mouth at bedtime. 45 Tablet 2 LORazepam 0.5 MG Oral Tablet (Ativan) Take 1 Tablet by mouth every 8 hours as needed for Anxiety. Do not start before December 25, 2022. 90 Tablet 1 busPIRone HCl 10 MG Oral Tablet (Buspar) Take 2 Tablets by mouth in the morning and 2 Tablets before bedtime. 120 Tablet 2 Baclofen 10 MG Oral Tablet (Lioresal) Take 1 Tablet by mouth 3 times a day as needed for Musclespasms. 90 Tablet 0 Nystatin 181123 UNIT/GM External Powder (Nyamyc) apply to affected area twice a day 15 g 1 Isosorbide Mononitrate ER 30 MG Oral Tablet Extended Release 24 Hour (Imdur) take 1 tablet by mouth daily 30 Tablet 5 Furosemide 20 MG Oral Tablet (Lasix) take 1 tablet by mouth once daily if needed for LOWER LEG SWELLING 30 Tablet 0 traMADol HCl 50 MG Oral Tablet (Ultram) take 2 tablets by mouth every 8 hours if needed for moderate pain 180 Tablet 0 No current facility-administered medications for this visit. Review of patient's allergies indicates: Allergen Reactions Aspirin Unknown von Willebrand's disease Salicylates von Willebrand's disease Social History: Social History Tobacco Use Smoking status: Former Packs/day: 1.50 Years: 32.00 Pack years: 48.00 Types: Cigarettes Quit date: 2018 Years since quittin.2 Smokeless tobacco: Never Substance Use Topics Alcohol use: No Vaping/E-Cigarette Use Vaping/E-Cigarette Use Former User Vaping/E-Cigarette Substances Vaping/E-Cigarette Devices Family History 11 items Mother ( at age 64) Lung Disorder hepatitis [OTHER] Father ( at age 55) Heart Disorder Mental Disorder Asthma Daughter ( at age 25) Son Son Sister ( at age 41) Sister Sister Other [OTHER] Sister Neurological Disorder Son Other [OTHER] Daughter Other [OTHER] Past Surgical History: Procedure Laterality Date BREAST BIOPSY Left benign--- done in her late 20's COLONOSCOPY THRU STOMA, W/BIOPSY 10/06/2010 adenomatous/repeat colonoscopy in 1 yr COLONOSCOPY THRU STOMA, W/BIOPSY 05/22/2013 hyperplastic polyp COLONOSCOPY, DIAGNOSTIC (RECTUM) 11/12/2020 large adenomatous polyp, repeat 6 mo / [facility] COLONOSCOPY, DIAGNOSTIC (RECTUM) N/A 01/13/2023 multiple small and larged mouthed diverticula/angiodysplastic lesion ascending colon/hemorrhoids/biopsies show adenomatous polyps/recall 1-2 years/Colon/[place] EGD, FLEXIBLE, DIAGNOSTIC 02/26/2015 retained food/[facility] EGD, FLEXIBLE, DIAGNOSTIC 11/12/2020 Gastric submucosal mass / [facility] EGD, FLEXIBLE, DIAGNOSTIC 11/06/2020 gastritis / [facility] EGD, FLEXIBLE, W/BIOPSY 05/19/2013 EGD, W/ENDOSCOPIC US 11/05/2011 UPPER GI ENDOSCOPY ENDOSCOPIC ULTRASOUND performed by BERENICE ASHBY at ENDOSCOPY [facility]; REPAIR INITIAL INGUINAL HERNIA REMOVE GALLBLADDER TOTAL HYSTERECTOMY and bso Past Medical History: Diagnosis Date Back disorder Benign neoplasm of colon 10/06/10 adenomatous/repeat colonoscopy in 1 yr Chronic bilateral low back pain without sciatica 10/14/2020 COPD (chronic obstructive pulmonary disease) ([facility]) COPD, mild ([facility]) 04/06/2007 COPD, severe ([facility]) 04/06/2007 Decreased functional mobility 08/28/2022 Depressive disorder, not elsewhere classified Drug-seeking behavior 10/17/2020 Generalized osteoarthritis History of multiple strokes 10/17/2020 History of narcotic addiction ([facility]) 12/19/2021 Hyperplastic colonic polyp Hypothyroidism 04/16/2015 Malaise and fatigue Mixed dyslipidemia Moderate episode of recurrent major depressive disorder ([facility]) 03/05/2020 Morbid obesity due to excess calories ([facility]) 03/05/2020 Narcotic addiction ([facility]) 10/04/2014 Non compliance w medication regimen 10/14/2020 Oxygen dependent 12/29/2019 Paroxysmal atrial fibrillation ([facility]) 10/14/2020 Patent foramen ovale PTSD (post-traumatic stress disorder) 03/05/2021 Schizoaffective disorder, chronic condition ([facility]) followed Dr Robby Diego [facility] Sequelae, post-stroke CVA Status asthmaticus Von Willebrand's disease Patient Active Problem List Diagnosis Code Irritable bowel syndrome with diarrhea K58.0 Medical home patient encounter Z00.8 Depression with anxiety F41.8 Obstructive sleep apnea G47.33 Von Willebrand disease D68.00 Idiopathic cardiomyopathy ([facility]) I42.9 Acquired hypothyroidism E03.9 Super obese E66.9 Chronic bilateral low back pain without sciatica M54.50, G89.29 Paroxysmal atrial fibrillation ([facility]) I48.0 Drug-seeking behavior Z76.5 History of multiple strokes Z86.73 Chronic diastolic CHF (congestive heart failure) ([facility]) I50.32 PTSD (post-traumatic stress disorder) F43.10 COPD, group D, by GOLD 2017 classification ([facility]) J44.9 Chronic hypoxemic respiratory failure ([facility]) J96.11 History of narcotic addiction ([facility]) F11.21 Decreased functional mobility R26.89 Constitutional: (+) weakness ENT: (+) sinus trouble Pulmonary: (+) apnea Female : (+) See HPI Musculoskeletal: (+) muscle weakness Neurology: (+) generalized weakness Psychiatry: (+) depression Physical Exam Constitutional: Appearance: She is obese. She is ill-appearing. She is not toxic-appearing. HENT: Head: Normocephalic. Right Ear: External ear normal. Left Ear: External ear normal. Eyes: Extraocular Movements: Extraocular movements intact. Pulmonary: Effort: Respiratory distress (using NC O2) present. Skin: Coloration: Skin is not pale. Neurological: Mental Status: She is oriented to person, place, and time. Psychiatric: Thought Content: Thought content normal. Impression/Plan: 62-year-old female with chronic urinary incontinence, history of CVA. Findings reviewed with patient. Multifactorial suspected origin of the patient's urinary incontinence is reviewed. Will start with a trial of anticholinergics in the form of VESIcare 10 mg. Will see the patient back via telehealth visit in 3-4 months to check on progress. Second at the patient's history of neuropathy, obesity and comorbidities telehealth is simpler for the patient. Would hold on antibiotics for asymptomatic bacteriuria. Previous imaging studies demonstrate no significant abnormalities, no need for repeat at this time. Patient vocalizes good understanding of the treatment plan. Juan José Walters MD 3:58 PM 01/26/2023 documented in this encounter Plan of Treatment Upcoming Encounters Date Type Specialty Care Team Description 01/27/2023 Telemedicine Pharmacy Pharmacist2, [facility] [address] [place] [address] 01/28/2023 Laboratory Laboratory Processing [facility], [facility] Mobile Home Draw [address] [place], [place] [id number] 01/29/2023 [facility] [address] [place] [address] 03/01/2023 Telemedicine Psychiatry Hugo Alcantara MD [address] [place] [address] 03/11/2023 Office Visit Neurology Hina Lion PA-C [address] [place] [address] 03/16/2023 Office Visit Pulmonary Alisha Carrero CRNP [address] [place] [address] 03/17/2023 PulmDiagnostic Pulmonary Function [place], [facility] [address] [place] [address] 2023 Imaging Radiology 07/07/2023 Office Visit Cardiology Jerry Pacheco, [address] [place] [address] Scheduled Procedures Name Priority Associated Diagnoses Date/Ti [...] 02/16/2022 LUNG CANCER SCREENING - USE SMARTSET [id number] Completed 03/16/2022 Influenza Vaccine (FLU shot) Completed [...] encounter Visit Diagnoses Diagnosis Urge incontinence- Primary documented in this encounter Care Teams Biomedical Engineer Relationship Specialty Start Date End Date Jeevan Alexandra MD [address] [place] [address] PCP - General Family Medicine 12/29/19 documented as of this encounter
--- OUTSIDE RECORDS SUMMARY | 2023-07-25 04:20 | External Medical Summary | Summary of Care ---
Author Name Unknown Organization [facility] Address [address] [place] [address] Phone [phone] Care Team Providers Care Operations Supervisor 2Nd Shift Name Role Phone Roger Alexandra MD Primary Care Provider [phone] Reason for Visit * Reason Onset Date Comments case management 12/15/2022 Encounter Details Date Type Department Care Team Description 12/15/2022 Speech Writer Telephone Family [facility] [address] [place] [address] Yara Morris, case management assistant Allergies Active Allergy Reactions Severity Noted Date Comments Aspirin Unknown 12/12/2007 von Willebrand's disease Salicylates 03/01/2000 von Willebrand's disease documented as of this encounter (statuses as of 01/13/2023) Medications Medication Sig Dispensed Refills Start Date [...] the morning. 30 Tablet 11 12/09/2022 Active documented as of this encounter (statuses as of 01/13/2023) Active Problems Problem Noted Date Decreased functional [...] as of this encounter (statuses as of 01/13/2023) Resolved Problems Problem Noted Date Resolved Date [...] as of this encounter (statuses as of 01/13/2023) Immunizations Name Administration Dates Next Due H1N1 [...] Telephone Encounter - Roger Alexandra MD - 12/15/2022 12:00 PM EST No changes for now. She has a history of opiate abuse so I won't be prescribing her anything STRONGER than tramadol if that is her expectation. Will discuss issues at visit. Thanks, Dr. Alexandra * Telephone Encounter - Yara Morris RN - 12/15/2022 10:59 AM EST Case Management Assessment S: Spoke with patient, she has multiple complaints at this time. Chest has been hurting the past few weeks. She considered going to the ER last evening for chest pain and arm pain. The arm pain has resolved. She had seen pulmonology yesterday and was instructed to restart Advair, she has to pick this up at the pharmacy. She would like to have Home health back. Thinks she may have a uti, has decreased output and odorous urine. needs straight catheterization to obtain sample. Is using oxygen at 4L.Also would like to obtain a rollator walker. Reporting tramadol is not effective as 100mg Q8H. Also using tylenol occasionally. Would like to try something else. Denies any falls. No blurry vision. Admits to not drinking much water. O: phone call follow up A: Alert and oriented P: message to PCP about pain. Scheduled televideo visit to [facility] for walker need also for face to face encounter to refer home health. Encourage increase water intake, monitor and report and chills/fever, worsening SOB. documented in this encounter Plan of Treatment Upcoming Encounters Date Type Specialty Care Team Description 01/19/2023 Laboratory Laboratory Processing [facility], [facility] Mobile Home Draw [address] [place] [address] 01/20/2023 Pharmacy Pharmacy Pharmacist2, [facility] Sp [address] [place] [address] 01/21/2023 Anticoagulation Pharmacy Telepharmacy, [facility] [address] [facility] [place] [address] 01/26/2023 Telemedicine Urology Juan José Walters MD 27 [facility] [address] [place] [address] 03/01/2023 Telemedicine Psychiatry Hugo Alcantara MD [address] [place] [facility] [place] [address] 03/11/2023 Office Visit Neurology Hina Lion PA-C [address] [place] [facility] [place] [address] 03/16/2023 Office Visit Pulmonary Alisha Carrero CRNP [address] [facility] [place] [address] 03/17/2023 PulmDiagnostic Pulmonary Function [place], [facility]ft [address] [place] [address] 07/07/2023 Office Visit Cardiology Jerry Pacheco DO [address] [place] [address] Health Maintenance Due Date Last Done Comments [...] 02/16/2022 LUNG CANCER SCREENING - USE SMARTSET [id number] Completed 03/16/2022 Influenza Vaccine (FLU shot) Completed [...] filedocumented as of this encounter Care Teams Operations Supervisor 2Nd Shift Relationship Specialty Start Date End Date Roger Alexandra MD [address] [place] [address] PCP - General Family Medicine 12/29/19 documented as of this encounter
--- OUTSIDE RECORDS SUMMARY | 2023-07-25 04:20 | External Medical Summary | Summary of Care ---
Author Name Unknown Organization [facility] Address [address] [facility] [place] [address] Phone [phone] Care Team Providers Care Leak Operator [employer] Name Role Phone Roger Alexandra MD Primary Care Provider [phone] Reason for Visit * Reason Onset Date Comments Med Request 01/15/2023 Encounter Details Date Type Department Care Team Description 01/15/2023 Telephone Family Practice [facility] [address] [place] [id number] Roger Alexandra MD [address] [facility] [place] [id number] Med Request Allergies Active Allergy Reactions Severity Noted Date Comments Aspirin Unknown 12/12/2007 von Willebrand's disease Salicylates 03/01/2000 von Willebrand's disease documented as of this encounter (statuses as of 01/15/2023) Medications Medication Sig Dispensed Refills Start Date [...] spasms. 90 Tablet 0 12/31/2022 Active Nystatin 994889 UNIT/GM External Powder (Nyamyc) apply to affected [...] as of this encounter (statuses as of 01/15/2023) Active Problems Problem Noted Date Decreased functional [...] as of this encounter (statuses as of 01/15/2023) Resolved Problems Problem Noted Date Resolved Date [...] as of this encounter (statuses as of 01/15/2023) Immunizations Name Administration Dates Next Due H1N1 [...] * Telephone Encounter - DANIEL Olmstead - 01/15/2023 11:07 AM EST Pt calling to request a refill for Tramadol. Advised too soon to put request in. Advised Pt to callback on 01/19/2023. Thanks, Oliverio Aguirre [facility] 01/15/2023,11:07 AM documented in this encounter Plan of Treatment Upcoming Encounters Date Type Specialty Care Team Description 01/19/2023 Laboratory Laboratory Processing [facility], [facility] Mobile Home Draw [address] [place] [address] 01/20/2023 Pharmacy Pharmacy Pharmacist2, [facility] [address] [place] [address] 01/21/2023 Anticoagulation Pharmacy Telepharmacy, [facility] [address] [place] [address] 01/26/2023 Telemedicine Urology Juan José Walters MD [address] [place] [address] 03/01/2023 Telemedicine Psychiatry Hugo Alcantara MD [address] [place] [address] 03/11/2023 Office Visit Neurology Hina Lion PA-C [address] [place] [address] 03/16/2023 Office Visit Pulmonary Alisha Carrero CRNP [address] [place] [address] 03/17/2023 PulmDiagnostic Pulmonary Function [place], [facility] [address] [place] [address] 07/07/2023 Office Visit Cardiology Jerry Pacheco DO [address] [place] [address] Health Maintenance Due Date Last Done Comments [...] 02/16/2022 LUNG CANCER SCREENING - USE SMARTSET [id number] Completed 03/16/2022 Influenza Vaccine (FLU shot) Completed [...] filedocumented as of this encounter Care Teams Leak Operator Paraffin Plant Relationship Specialty Start Date End Date Roger Alexandra MD [address] [place] [address] PCP - General Family Medicine 12/29/19 documented as of this encounter
--- OUTSIDE RECORDS SUMMARY | 2023-07-25 04:20 | External Medical Summary | Summary of Care ---
Author Name Unknown Organization [facility] Address [address] [facility] [address] Phone [phone] Care Team Providers Care Log Pond Worker Name Role Phone Roger Alexandra MD Primary Care Provider [phone] Reason for Visit * Reason Comments Dosage Adjustment In Person (Anticoag Cl inic) Encounter Details Date Type Department Care Team Description 01/27/2023 Telemedicine Pharmacy, [facility] [address] [place] [address] Pharmacist2, [facility] 200 [place] [address] Encounter for medication review* Allergies Active Allergy Reactions Severity Noted Date [...] 90 Tablet 3 2 Active oxygen IN GASIndications:Canvas 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 90 Tablet 0 3 Active Nystatin 493616 UNIT/GM External Powder (Nyamyc) apply to affected [...] LEG SWELLING 30 Tablet 0 3 Active traMADol HCl 50 MG Oral Tablet (Ultram)Indications :Chronic bilateral low back pain without sciatica take 2 tablets by mouth every 8 hours if needed for moderate pain 180 Tablet 0 3 Active Solifenacin Succinate 10 MG Oral Tablet (VESIcare) Take 1 Tablet by mouth in the morning. 30 Tablet 6 3 Active Bumetanide 1 MG Oral Tablet Take 1 Tablet (1 mg) by mouth in the morning. 90 Tablet 3 2 01/28/20 23 Discontinued documented as of this encounter [...] as of this encounter Progress Notes * Dov Medley, [facility] - 01/27/2023 8:50 AM EDT Medication Therapy [facility] - Medication Reconciliation Kimberly Kendall is an 62 year old being seen for medication reconciliation. Prescription insurance information: Medicare/Medicaid Do you have any other prescription coverage: No Preferred pharmacy: [facility] [x] Problem list reviewed [x] Allergies reviewed and updated if needed [x] Drug interaction check completed [x] HEDIS list addressed Immunizations: Due for PNA, Shingles, Tdap Medication Organization/Adherence: Has home care nurse or caregiver: yes Patient uses a pill box? Yes, refill(s) completed by self When you are at home, how often do you miss doses of medications? Never How difficult is it for you to pay for your medications? Not difficult at all How often do you experience side effects from your medications? Less than once a week "Referral at request of out patient home health-[facility] home health with concerns for pt being to sleepy during the day and not sleeping well at night. Pt is on more than 20 medications-request review per CM workflow." Patient disagrees with this statement and believes a lot of her sleep disturbances are due to anxiety/depression. Labs/Vitals/Risk Scores: The ASCVD Risk score (Carroll MONACO, et al., 2019) failed to calculate for the following reasons: Cannot find a previous HDL lab Cannot find a previous total cholesterol lab BP Readings from Last 3 Encounters: 12/17/22 134/80 12/14/22 134/64 12/08/22 116/76 No results for input(s): HGBA1C in the last 97395 hours. Recent Labs Units 10/23/22 0953 01/15/22 0545 01/08/22 0657 ESTIMATED GLOMERULAR FILTRATION RATE - [facility] mL/min 74 >90 >90 Serum creatinine: 0.9 mg/dL 10/23/22 0953 Estimated creatinine clearance: 86 mL/min Assessment & Plan: Medication discrepancies identified: Bumetanide removed from list (on lasix now) Dose/frequency of medications appropriate for current renal function? yes Other medication problems identified: N/A Patient education provided: N/A Referral pended for follow up management of: N/A Summary- Changes & Recommendations: No changes recommended Dov Medley [facility] Clinical Pharmacist - Neurophysiologist Medication Therapy Management Clinic 01/27/2023, 8:50 AM documented in this encounter Plan of Treatment Upcoming Encounters Date Type Specialty Care Team Description 01/28/2023 Laboratory [facility] Draw [address] [place] [address] 01/29/2023 [facility] [address] [place] [address] 03/01/2023 Telemedicine Psychiatry Hugo Alcantara MD [address] [place] [address] 03/11/2023 Office Visit Neurology Hina Lion PA-C [address] [place] [address] 03/16/2023 Office Visit Pulmonary Alisha Carrero CRNP [address] [facility] [place] [address] 03/17/2023 PulmDiagnostic Pulmonary Function [place], [facility] [address] [place] [address] 2023 Imaging Radiology 07/07/2023 Office Visit Cardiology Jerry Pacheco DO [address] [facility] [place] [id number] Scheduled Procedures Name Priority Associated Diagnoses Date/Ti [...] 02/16/2022 LUNG CANCER SCREENING - USE SMARTSET 72979 Completed 03/16/2022 Influenza Vaccine (FLU shot) Completed [...] for long-term (current) use of other medications documented in this encounter Care Teams Log Pond Worker Relationship Specialty Start Date End Date Roger Alexandra MD [address] [place] [address] PCP - General Family Medicine 12/29/19 documented as of this encounter
--- OUTSIDE RECORDS SUMMARY | 2023-07-25 04:20 | External Medical Summary | Summary of Care ---
Author Name Unknown Organization [facility] Address [address] [place] [address] Phone [phone] Care Team Providers Care Director Environmental Name Role Phone Jeevan Alexandra MD Primary Care Provider [phone] Reason for Referral * Medication Prior Authorization - Pending Review Specialty Diagnoses / Procedures Referred By Anna hendrix Referred To Contact Diagnoses Chronic bilateral low back pain without sciatica Jeevan Alexandra MD [address] [facility] [place] [address] Referral ID Status Reason Start Date Expiration Date V isits Requested Visits Authorized [id number] Pending Review 999 999 Reason for Visit * Reason Comments eRx-Medication Refill Encounter Details Date Type Department Care Team Description 01/20/2023 Refill Family Practice [facility] [address] [place] [address] Jeevan Alexandra MD 132 [facility] [place] [address] Chronic bilateral low back pain without sciatica [...] 90 Tablet 3 2 Active oxygen IN GASIndications: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 90 Tablet 0 3 Active Nystatin 485627 UNIT/GM External Powder (Nyamyc) apply to affected [...] moderate pain 180 Tablet 0 3 Active traMADol HCl 50 MG Oral Tablet (Ultram)Indications :Chronic bilateral low back pain without sciatica Take 2 Tablets by mouth every 8 hours as needed for Pain, Moderate. 180 Tablet 0 3 01/21/20 23 Discontinued documented as of this encounter [...] Miscellaneous Notes * Telephone Encounter - Jeevan Alexandra MD - 01/20/2023 4:41 PM ESTSigned Prescriptions: Disp Refills traMADol HCl 50 MG Oral Tablet (Ultram) 180 Ta*0 Sig: take 2 tablets by mouth every 8 hours if needed for moderate pain Authorizing Provider: JEEVAN ALEXANDRA * Telephone Encounter - Deepthi Maki RPh - 01/20/2023 1:45 PM EST I have reviewed the patients controlled substance dispensing history in the Prescription Drug Monitoring Program in compliance with the [facility] regulations before prescribing a controlled substance. PDMP checked on 01/20/2023. Pending Prescriptions: Disp Refills traMADol HCl 50 MG Oral Tablet (Ultram) [*180 Ta* Sig: take 2 tablets by mouth every 8 hours if needed for moderate pain Last Visit: 09/30/2022 (in office), 12/16/2022 (telemedicine) Next Visit: Visit date not found Date medication was last filled: 12/22/22 Date medication is due for refill: 01/20/23 Pharmacy: [facility] #[id number] Is this request for a controlled substance? Yes and Urine Drug Screen Not completed Toxicology results: No results found. However, due to the size of the patient record, not all encounters were searched.Please check Results Review for a complete set of results. Please approve if appropriate. Thanks, Deepthi Maki, PharmD Clinical Pharmacist Telepharmacy [phone] 01/20/2023 1:45 PM documented in this encounter Plan of Treatment Upcoming Encounters Date Type Specialty Care Team Description 01/20/2023 Pharmacy Pharmacy Pharmacist2, [facility] 200 [facility], [place] [id number] Type 2 diabetes mellitus with hemoglobin A1c goal of less than 7.0% (HCC)* 01/21/2023 Anticoagulation Pharmacy Telepharmacy, [facility] [address] [facility] [place] [address] 01/26/2023 Telemedicine Urology Juan José Walters MD [address] [place] [address] 01/27/2023 Telemedicine Pharmacy Pharmacist, [facility] Sp [address] [place] [address] 03/01/2023 Telemedicine Psychiatry Hugo Alcantara MD [address] [place] [address] 03/11/2023 Office Visit Neurology Hina Lion PA-C [address] [place] [address] 03/16/2023 Office Visit Pulmonary Alisha Carrero CRNP [address] [place] [address] 03/17/2023 PulmDiagnostic Pulmonary Function [facility] Pft [address] [place] [address] 07/07/2023 Office Visit Cardiology Jerry Pacheco DO [address] [place] [address] Scheduled Procedures Name Priority Associated Diagnoses Date/Ti [...] 02/16/2022 LUNG CANCER SCREENING - USE SMARTSET 37507 Completed 03/16/2022 Influenza Vaccine (FLU shot) Completed [...] goal of less than 7.0% (HCC)- Primary Chronic bilateral low back pain without sciatica documented in this encounter Care Teams Director Environmental Relationship Specialty Start Date End Date Jeevan Alexandra MD [address] [place] [address] PCP - General Family Medicine 12/29/19 documented as of this encounter
--- OUTSIDE RECORDS SUMMARY | 2023-07-25 04:20 | External Medical Summary | Summary of Care ---
Author Name Unknown Organization [facility] Address [address] [facility] [address] Phone [phone] Care Team Providers Care Body And Fender Mechanic Name Role Phone Roger Alexandra MD Primary Care Provider [phone] Reason for Visit * Reason Onset Date Comments Advice 10/20/2022 Encounter Details Date Type Department Care Team Description 10/20/2022 Telephone Family Practice [facility] [address] [place] [address] Brittney Wilde DO [address] [place] [id number] Advice Allergies Active Allergy Reactions Severity Noted [...] COPD, group D, by GOLD 2017 classification ([facility]),Chronic hypoxemic respiratory failure ([facility]) Use with nebulized meds 1 Each 0 2 Active Full Kit Nebulizer SetIndications: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 18 g 1 2 Active Ipratropium-Albute rol 0.5-2.5 (3) MG/3ML Inhalation [...] BEFORE BEDTIME 60 Capsule 5 2 Active Nystatin 872625 UNIT/GM External Powder (Nyamyc) apply to affected area twice a day 15 g 1 2 023 Discontinued Isosorbide Mononitrate ER 30 MG Oral Tablet Extended Release 24 Hour (Imdur) take 1 tablet by mouth daily 30 Tablet 5 2 023 Discontinued Mirtazapine 30 MG Oral Tablet (Remeron) Take by mouth 1 Tablet before bedtime. 30 Tablet 2 2 022 Discontinued(Re fill) busPIRone HCl 10 MG Oral Tablet (Buspar) Take by mouth 2 Tablets in the morning AND 2 Tablets before bedtime. 120 Tablet 1 2 022 Discontinued(Re fill) guaiFENesin ER 600 MG Oral Tablet Extended Release 12 Hour (Humibid LA) Take by mouth 600 mg in the morning AND 600 mg before bedtime. 0 023 Discontinued(Mau thomas preference/disc ontinuation) Fluticasone-Salmet jose martin 115-21 MCG/ACT Inhalation Aerosol Inhale by mouth 2 Puffs in the morning AND 2 Puffs before bedtime. 12 g 12 2 023 Discontinued(Re fill) traMADol HCl 100 MG Oral TabletIndications: Chronic bilateral low back pain without sciatica take 1 tablet by mouth every 8 hours if needed for moderate pain to severe pain 90 Tablet 0 2 022 Discontinued(Re fill) Baclofen 10 MG Oral Tablet (Lioresal)Indicati ons:Chronic bilateral low back pain without sciatica Take 1 Tablet (10 mg) by mouth 3 times a day as needed for Muscle spasms. 90 Tablet 0 2 023 Discontinued clonazePAM 0.5 MG Oral Tablet (KlonoPIN) Take 1 Tablet (0.5 mg) by mouth in the morning and 1 Tablet (0.5 mg) before bedtime. 60 Tablet 1 2 022 Discontinued Sulfamethoxazole-T rimethoprim 800-160 MG Oral Tablet (Bactrim DS) Take 1 Tablet by mouth in the morning and 1 Tablet before bedtime. Do all this for 3 days. Until gone. 6 Tablet 0 2 022 Hospital, Clinic, or Other Facility Administered Medication Ordered Dose Route Frequency Start Date End Date Status Albuterol Sulfate (Proventil) (2.5 MG/3ML) 0.083% inhalation solution 2.5 mgIndications:Chroni c hypoxemic respiratory failure (HCC),COPD, group D, by GOLD 2017 classification (HCC) 2.5 mg NEBULIZER PRN 03/10/2022 02 3 Discontinued Albuterol Sulfate (Proventil) (5 MG/ML) 0.5% *conc* inhalation solution 2.5 mgIndications:Chroni c hypoxemic respiratory failure (HCC),COPD, group D, by GOLD 2017 classification (HCC) 2.5 mg NEBULIZER PRN 03/10/2022 02 3 Discontinued documented as of this encounter (statuses [...] Telephone Encounter - Yara Morris RN - 10/20/2022 4:04 PM EST Spoke with patient and made aware. She will have her granddaughter pickling machine operator the rx (from other encounter regarding UA results) Also called patient back as we discussed to leave this info as a VM so she can let her granddaughter listen to the message- granddaughter helps fill pill box for her to take medications. * Telephone Encounter - Brittney Wilde DO - 10/20/2022 1:07 PM EST Please call Urine cx pending but UA looks like infection rx for bactrim sent x 3 days Can re-eval once sensitivities back documented in this encounter Plan of Treatment Upcoming Encounters Date Type Specialty Care Team Description 01/19/2023 Laboratory [place] [facility] [place] Draw [address] [place] [address] 01/20/2023 Pharmacy Pharmacy Pharmacist2, [facility] Sp [address] [place] [address] 01/21/2023 Anticoagulation Pharmacy Telepharmacy, [facility] [address] [place] [address] 01/26/2023 Telemedicine Urology Juan José Walters MD 27 [facility] [address] [place] [address] 03/01/2023 Telemedicine Psychiatry Hugo Alcantara MD [address] [place] [address] 03/11/2023 Office Visit Neurology Hina Lion PA-C [address] [facility] [place] [address] 03/16/2023 Office Visit Pulmonary Alisha Carrero CRNP [address] [place] [address] 03/17/2023 PulmDiagnostic Pulmonary Function [place], [facility] [address] [place] [address] 07/07/2023 Office Visit Cardiology Jerry Pacheco DO [address] [place] [address] Health Maintenance Due Date Last Done Comments [...] 02/16/2022 LUNG CANCER SCREENING - USE SMARTSET 49484 Completed 03/16/2022 Influenza Vaccine (FLU shot) Completed [...] filedocumented as of this encounter Care Teams Body And Fender Mechanic Relationship Specialty Start Date End Date Roger Alexandra MD [address] [place] [address] PCP - General Family Medicine 12/29/19 documented as of this encounter
--- OUTSIDE RECORDS SUMMARY | 2023-07-25 04:20 | External Medical Summary | Summary of Care ---
Author Name Unknown Organization [facility] Address [address] [place] [address] Phone [phone] Care Team Providers Care Reliability Engineer Name Role Phone Roger Alexandra MD Primary Care Provider [phone] Encounter Details Date Type Department Care Team Description 01/13/2023 Result Scan Unspecified Department Shaneka Santiago MD [address] [place] [id number] <No scans attached> Allergies Active Allergy Reactions Severity Noted Date [...] by GOLD 2017 classification ([facility]),Chronic hypoxemic respiratory failure ([facility]) Use with nebulized meds 1 Each 0 09/16/2022 Active Full Kit Nebulizer SetIndications:COPD, group D, by GOLD 2017 classification ([facility]),Chronic hypoxemic respiratory failure ([facility]) Use with nebulizer 1 Each 0 [...] spasms. 90 Tablet 0 12/31/2022 Active Nystatin 029440 UNIT/GM External Powder (Nyamyc) apply to affected area twice a day 15 g 1 12/31/2022 Active Isosorbide Mononitrate ER 30 MG Oral Tablet Extended Release 24 Hour (Imdur) take 1 tablet by mouth daily 30 Tablet 5 01/11/2023 Active documented as of this encounter (statuses [...] Care Team Description 01/19/2023 Laboratory [facility], [facility] Mobile Home Draw [address] [place] [address] 01/20/2023 Pharmacy Pharmacy Pharmacist2, [facility] Sp [address] [place] [address] 01/21/2023 Anticoagulation Pharmacy Telepharmacy, [facility] [address] [place] [address] 01/26/2023 Telemedicine Urology Juan José Walters MD 27 [facility] [address] [place] [address] 03/01/2023 Telemedicine Psychiatry Hugo Alcantara MD [address] [place], [place] [address] 03/11/2023 Office Visit Neurology Hina Lion PA-C [address] [facility], [place] [address] 03/16/2023 Office Visit Pulmonary Alisha Carrero CRNP [address] [place] [address] 03/17/2023 PulmDiagnostic Pulmonary Function [place], [facility] [place] [address] 07/07/2023 Office Visit Cardiology Jerry Pacheco DO [address] [place] [address] Health Maintenance Due Date Last Done Comments [...] 02/16/2022 LUNG CANCER SCREENING - USE SMARTSET 39557 Completed 03/16/2022 Influenza Vaccine (FLU shot) Completed [...] Procedure Name Priority Date/Time Associated Diagnosis Comments PATHOLOGY SCANNED RESULT 01/13/2023 documented in this encounter Results * PATHOLOGY SCANNED RESULT (01/13/2023) 01/13/2023 Shaneka Santiago MD PATHOLOGY documented in this encounter Care Teams Reliability Engineer Relationship Specialty Start Date End Date Roger Alexandra MD 132 [facility] [place] [address] PCP - General Family Medicine 12/29/19 documented as of this encounter
--- OUTSIDE RECORDS SUMMARY | 2023-07-25 04:20 | External Medical Summary | Summary of Care ---
Author Name Unknown Organization [facility] Address [address] [place] [address] Phone [phone] Care Team Providers Care Sand Blaster Name Role Phone Roger Alexandra MD Primary Care Provider [phone] Reason for Visit * Reason Onset Date Comments Medication Refill 01/19/2023 Encounter Details Date Type Department Care Team Description 01/19/2023 Refill Family [facility] [address] [place] [address] Roger Alexandra MD [address] [facility] [place] [id number] Chronic bilateral low back pain without sciatica [...] spasms. 90 Tablet 0 12/31/2022 Active Nystatin 633937 UNIT/GM External Powder (Nyamyc) apply to affected [...] Miscellaneous Notes * Telephone Encounter - Jozef Maki RPh - 01/20/2023 1:47 PM ESTRefused Prescriptions: Disp Refills traMADol HCl 50 MG Oral Tablet (Ultram) 180 Ta*0 Sig: Take 2 Tablets by mouth every 8 hours as needed for Pain, Moderate. Refused By: JOZEF MAKI Reason for Refusal: Duplicate Request Reason for Refusal Comment: pending with pcp within separate request * Telephone Encounter - DANIEL Posey Tech - 01/19/2023 12:52 PM EST Did you pend patient's preferred pharmacy and medication before forwarding?yes Pharmacy: [facility] #[id number] Pending Prescriptions: Disp Refills traMADol HCl [...] appointment Last date the medication was ordered: 12/22/2022 Is this request for a controlled substance?Yes, What was the last refill date 12/22/2022 w/ quantity 180 TAB and dosage 50 MG and Urine Drug Screen Not completed Urine Drug Screen:No results found. However, due [...] Care Team Description 01/20/2023 Pharmacy Pharmacy Pharmacist2, [facility] Sp 200 [facility] [place] [address] Type 2 diabetes mellitus with hemoglobin A1c goal of less than 7.0% (HCC)* 01/21/2023 Anticoagulation Pharmacy Telepharmacy, [facility] [address] [facility] [place] [address] 01/26/2023 Telemedicine Urology Juan José Walters MD [address] [place] [address] 01/27/2023 Telemedicine Pharmacy Pharmacist2, [facility] Sp [address] [facility] [place] [address] 03/01/2023 Telemedicine Psychiatry Hugo Alcantara MD [address] [place] [address] 03/11/2023 Office Visit Neurology Hina Lion PA-C [address] [place] [address] 03/16/2023 Office Visit Pulmonary lAisha Carrero CRNP [address] [place] [address] 03/17/2023 PulmDiagnostic Pulmonary Function [place], Pft [address] [place] [address] 07/07/2023 Office Visit Cardiology Jerry Pacheco DO [address] [place] [address] Scheduled Procedures Name Priority Associated Diagnoses Date/Ti [...] 02/16/2022 LUNG CANCER SCREENING - USE SMARTSET 21766 Completed 03/16/2022 Influenza Vaccine (FLU shot) Completed [...] Chronic bilateral low back pain without sciatica Type 2 diabetes mellitus with hemoglobin A1c goal of less than 7.0% (HCC)- Primary documented in this encounter Care Teams Sand Blaster Relationship Specialty Start Date End Date Roger Alexandra MD [address] [place] [address] PCP - General Family Medicine 12/29/19 documented as of this encounter
--- OUTSIDE RECORDS SUMMARY | 2023-07-25 04:20 | External Medical Summary | Summary of Care ---
Author Name Unknown Organization [facility] Address [address] [place] [address] Phone [phone] Care Team Providers Care Medical Affairs Leader Name Role Phone Roger Alexandra MD Primary Care Provider [phone] Reason for Visit * Reason Onset Date Comments case management 01/19/2023 Encounter Details Date Type Department Care Team Description 01/19/2023 Chief Operations Officer Telephone Family [facility] [address] [place] [address] Yara Morris, oracle identity management consultant Allergies Active Allergy Reactions Severity [...] spasms. 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 She would like her granddaughterto pick this up tomorrow if possible. She reports she is "pretty good" otherwise. Has "good days and bad days" with her breathing. Home health nursing and PT still coming in to visit, but she feels this will be finishing up next week. O: phone call follow up A: alert, oriented x 3 P: Form completed, had signed by PCP. Reinforce care plan previously established at last encounter. documented in this encounter Plan of Treatment Upcoming Encounters Date Type Specialty Care Team Description 01/20/2023 Pharmacy Pharmacy Pharmacist2, [facility] [address] [place] [address] 01/21/2023 [facility] Tele[facility], [facility] [address] [facility] [address] 01/26/2023 Telemedicine Urology Juan José Walters MD [address] [place] [address] [place] [address] 03/01/2023 Telemedicine Psychiatry Hugo Alcantara MD [address] [place] [address] 03/11/2023 Office Visit Neurology Hina Lion PA-C [address] [place] [address] 03/16/2023 Office Visit Pulmonary [facility]ro [facility] [place] [address] 03/17/2023 PulmDiagnostic Pulmonary Function [place], Pft [address] [place] [address] 07/07/2023 Office Visit Cardiology Jerry Pacheco, [address] [place] [address] Scheduled Procedures Name Priority Associated Diagnoses Date/Ti [...] 02/16/2022 LUNG CANCER SCREENING - USE SMARTSET 30058 Completed 03/16/2022 Influenza Vaccine (FLU shot) Completed [...] filedocumented as of this encounter Care Teams Medical Affairs Leader Relationship Specialty Start Date End Date Roger Alexandra MD [address] [place] [address] PCP - General Family Medicine 12/29/19 documented as of this encounter
--- OUTSIDE RECORDS SUMMARY | 2023-07-25 04:20 | External Medical Summary | Summary of Care ---
Author Name Unknown Organization [facility] Address [address] [place] [facility] [place] [address] Phone [phone] Care Team Providers Care Filtrose Crusher Name Role Phone Roger Alexandra MD Primary Care Provider [phone] [phone] Reason for Visit * Reason Comments Dosage Adjustment Via Phone (anticoag Cl inic) Encounter Details Date Type Department Care Team Description 01/21/2023 Anticoagulation Pharmacy Call Center [address] [place] [address] [facility] [address] [place] [address] Anticoagulation management encounter* Allergies Active Allergy Reactions Severity Noted Date Comments Aspirin Unknown 12/12/2007 von Willebrand's disease Salicylates 03/01/2000 von Willebrand's disease documented as of this encounter (statuses as of 01/21/2023) Medications Medication Sig Dispensed Refills Start Date [...] spasms. 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 Coumadin Clinic (region specific) Current Warfarin Dose As of 01/21/2023 Warfarin maintenance plan: 5 mg (5 mg x 1) every day INR Result As of 01/21/2023 INR goal: 2.0-3.0 INR used for dosin.5 (01/19/2023) Warfarin Plan As of 01/21/2023 Full warfarin instructions: 01/21: 10 mg; Otherwise 5 mg every day Next INR check: 01/28/2023 Repeat PT/INR in 1.5 week(s) Weekly dose: not changed Additional Dosing Information: Description [facility] Also sent MyG after trying to call 01/13/23 [employer] to contact patient with dose instructions as noted. Dottie Eli RPh 01/21/2023, 9:42 AM documented in this encounter Plan of Treatment Upcoming Encounters Date Type Specialty Care Team Description 01/26/2023 Telemedicine Urology Juan José Walters MD 27 [facility] [address] [place] [address] 01/27/2023 Telemedicine Pharmacy Pharmacist2, [facility] Sp [address] [place] [address] 01/28/2023 Laboratory Laboratory Processing [facility] [facility] Mobile Home Draw [address] [place] [address] 01/29/2023 [facility] [address] [place] [address] 03/01/2023 Telemedicine Psychiatry Hugo Alcantara MD [address] [place] [facility] [address] 03/11/2023 Office Visit Neurology Hina Lion PA-C [address] [facility], [place] [address] 03/16/2023 Office Visit Pulmonary Alisha Carrero CRNP [address] [place] [address] 03/17/2023 PulmDiagnostic Pulmonary Function [place], Pft [address] [place] [address] 07/07/2023 Office Visit Cardiology Jerry Pacheco DO [address] [place] [address] Scheduled Procedures Name Priority [...] 02/16/2022 LUNG CANCER SCREENING - USE SMARTSET 19880 Completed 03/16/2022 Influenza Vaccine (FLU shot) Completed [...] monitoring documented in this encounter Care Teams Filtrose Crusher Relationship Specialty Start Date End Date Roger Alexandra MD [address] [place] [address] PCP - General Family Medicine 12/29/19 documented as of this encounter
--- OUTSIDE RECORDS SUMMARY | 2023-07-25 04:20 | External Medical Summary ---
Author Name Unknown Address Unknown Organization K01:[facility] - [address] [place] [address] Laboratory Report Ordering Provider Test Date Status SUMAN STANFORD 01/19/2023 11:02:00 Final Observation Date Value Abnormality Reference (Units ) Status PT 01/19/2023 11:02:00 18.6 Above high normal 11 .6-15.2 (seconds) Final INR 01/19/2023 11:02:00 1.5 Above high normal 0. 8-1.2 Final Performing Location [facility] - [address] [place] [address]
--- OUTSIDE RECORDS SUMMARY | 2023-07-25 04:21 | External Medical Summary | Summary of Care ---
Author Name Unknown Organization [facility] [address] Care Team Providers Care Press Operator [employer] Products Name Role Phone Roger Alexandra MD Primary Care Provider [phone] [phone] Reason for Referral * Evaluate & Treat - Unlimited Visits (Within 10 days (routine)) - Authorized Specialty Diagnoses / Procedures Referred By Contac t Referred To Contact Pharmacist / Pharmacy Diagnoses Polypharmacy Roger Alexandra MD [address] [place] [address] Referral ID Status Reason Start Date Expiration Date Visits Requested Visits Authorized [id number] Authorized Specialty Services Required 01/01/2023 99 99 Question Answer Referral Priority Within 10 days (routine) Department: Primary Care Reason for Referral: Med Review Comments Referral at request of out patient home health-[facility] home health with concerns for pt being to sleepy during the day and not sleeping well at night. Pt is on more than 20 medications-request review per workflow. Pharmacist Medication Therapy Management: Minimum frequency patient should be seen in person for medication management: as appropriate per clinical condition and patient status By my signature, I understand that my patient Kimberly Kendall will have her medication therapy managed by the [facility] Medication Therapy Disease Management [facility] ([facility]) per established policies, procedures, and protocols. I also certify that this referral may serve as an initiation of service for the management of drug therapy in the above noted patient. [facility] providers will be responsible for scheduling patient visits, obtaining appropriate laboratory studies, and adjusting medication management therapy per patient's need, in addition to those roles spelled out in the clinic policy, procedures, and drug management protocols. I understand that the service provided by the [facility] Clinic is voluntary and have informed patient that they can refuse the service at their discretion. I am aware that the [facility] Clinic will provide me with a copy of the patient encounter via my [employer]et. I authorize the [facility] Clinic to carry out these activities on my behalf. I consider this program to be a necessary part of the patient's medical care. Kim Mercado RN Reason for Visit * Reason Onset Date Comments Advice 01/01/2023 Encounter Details Date Type Department Care Team Description 01/01/2023 Pest Control Specialist Telephone Family Practice [address] [place] [address] Kim Mercado, nurse liaison Allergies Active Allergy Reactions Severity Noted Date Comments Aspirin Unknown 12/12/2007 von Willebrand's disease Salicylates 03/01/2000 von Willebrand's disease documented as of this encounter (statuses as of 01/01/2023) Medications Medication Sig Dispensed Refills Start Date End Date Status Warfarin Sodium 5 MG Oral Tablet (Coumadin)Indication s:Paroxysmal atrial fibrillation (HCC) Take by mouth 1 Tablet in the evening. OR As directed by coumadin clinic. 90 Tablet 3 02/16/2022 Active oxygen IN GASIndications:Chron ic hypoxemic respiratory failure (HCC),COPD, group D, by GOLD 2017 classification ([facility]) Use 2 LPM at rest, 4 LPM with exertion and with sleep. 1 Each 0 2022 Active Additional Information Patient taking differently: Use 4 LPM at rest, 5 LPM with exertion and 4 LPM with sleep., Reported on 12/16/2022 Isosorbide Mononitrate ER 30 MG Oral Tablet Extended Release 24 Hour (Imdur) take 1 tablet by mouth daily 30 Tablet 5 07/28/2022 Active Disposable Brief X-LargeIndications:O veractive bladder Attends X-Large Super Absorb Underwear 32 Each 2 09/08/2022 Active Nebulizer DeviceIndications:CO PD, group D, by GOLD 2017 classification ([facility]),Chronic hypoxemic respiratory failure (HCC) Use with nebulized meds 1 Each 0 09/16/2022 Active Full Kit Nebulizer SetIndications:COPD, group D, by GOLD 2017 classification ([facility]),Chronic hypoxemic respiratory failure (HCC) Use [...] Pain, Moderate. 180 Tablet 0 12/22/2022 Active Furosemide 20 MG Oral Tablet (Lasix)Indications:C hronic diastolic CHF (congestive heart failure) (HCC) Take 1 Tablet by mouth daily as needed (for swelling of legs). Take once daily as needed for swelling of legs 30 Tablet 0 12/24/2022 Active Sulfamethoxazole-Tri methoprim 800-160 MG Oral Tablet (Bactrim DS) Take 1 Tablet by mouth in the morning and 1 Tablet before bedtime. Do all this for 10 days. Until gone.. 20 Tablet 0 12/28/2022 3 Active Baclofen 10 MG Oral Tablet (Lioresal)Indication s:Chronic bilateral low back pain without sciatica Take 1 Tablet by mouth 3 times a day as needed for Muscle spasms. 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 They are concerned over what meds she is taking and whether or not they could possibly be adjusted. ASSESSMENT: CM reviewed with PT and pt in the back ground-Pt is taking her ativan 0.5mg every 8 hours around the clock, Tramadol ever 8 hours around the clock and her remeron 45mg at bed time. She states she does not sleep well at night and dozes off and on through the day but feels like she does not get enough sleep. RECOMMENDATION: [facility]TM Pharmacy referral for pt on more than 10 medications. Evaluate meds for pain, anxiety and sleep-Ativan, Remeron, Buspar, Tramadol Order Pended for [facility]TM Follow up. Please sign if you are in agreement Thank you! Kim Mercado freight forwarder [facility] [place] [address] [facility] [place] [address] documented in this encounter Plan of Treatment Upcoming Encounters Date Type Specialty Care Team Description 01/04/2023 Laboratory Laboratory Processing [facility] Mobile Home Draw [address] [place] [address] 01/04/2023 [facility] Tele[facility]acy, [facility] [address] [place] [address] 01/13/2023 Procedure Only Endoscopy [facility]ka Santiago MD [facility] [address] 01/26/2023 Telemedicine Urology Juan José Walters MD [address] [address] 03/01/2023 Telemedicine Psychiatry Hugo Alcantara MD [address] [place] [address] 03/11/2023 Office Visit Neurology Hina Lion PA-C 200 [facility] [place] [address] 03/16/2023 Office Visit Pulmonary Alisha Carrero CRNP [address] [facility] [place] [address] 03/17/2023 PulmDiagnostic Pulmonary Function [place], Pft [address] [place] [address] 07/07/2023 Office Visit Cardiology Jerry Pacheco DO [address] [place] [address] Scheduled Referrals Name Type Priority Associated Diagnoses Orde r Schedule PHARMACIST MEDS THERAPY MGMT REFERRAL OP Referral Within 10 days (routine) Polypharmacy Ordered: 01/01/2023 Health Maintenance Due Date Last Done Comments [...] history exists COLONOSCOPY-EVERY 5 YRS AGES 18-100 11/12/2025 11/12/2020, 05/22/2013, 08/21/2011, Additional history exists Alpha-1 Antitrypsin Completed 02/16/2022 LUNG CANCER SCREENING - USE SMARTSET 29726 Completed 03/16/2022 Influenza Vaccine (FLU shot) Completed [...] home patient encounter- Primary Other specified examination Polypharmacy Encounter for long-term (current) use of other medications documented in this encounter Care Teams Press Operator [employer] Products Relationship Specialty Start Date End Date Roger Alexandra MD [address] [place] [address] PCP - General Family Medicine 12/29/19 documented as of this encounter
--- OUTSIDE RECORDS SUMMARY | 2023-07-25 04:21 | External Medical Summary | Summary of Care ---
Author Name Unknown Organization [place] [address] Care Team Providers Care Assistant Signal Maintainer Name Role Phone Roger Alexandra MD Primary Care Provider [phone] Reason for Visit * Reason Onset Date Comments case management 01/05/2023 Encounter Details Date Type Department Care Team Description 01/05/2023 Detail Maker And Fitter Telephone [facility] 132 [facility] [place] [id number] Yara Morris, financial management Allergies Active Allergy Reactions Severity Noted Date Comments Aspirin Unknown 12/12/2007 von Willebrand's disease Salicylates 03/01/2000 von Willebrand's disease documented as of this encounter (statuses as of 01/06/2023) Medications Medication Sig Dispensed Refills Start Date [...] days. Until gone.. 20 Tablet 0 12/28/2022 Active Baclofen 10 MG Oral Tablet (Lioresal)Indication s:Chronic bilateral low back pain without sciatica Take 1 Tablet by mouth 3 times a day as needed for Muscle spasms. 90 Tablet 0 12/31/2022 Active Nystatin 381473 UNIT/GM External Powder (Nyamyc) apply to affected area twice a day 15 g 1 12/31/2022 Active documented as of this encounter (statuses as of 01/06/2023) Active Problems Problem Noted Date Decreased functional [...] as of this encounter (statuses as of 01/06/2023) Resolved Problems Problem Noted Date Resolved Date [...] as of this encounter (statuses as of 01/06/2023) Immunizations Name Administration Dates Next Due H1N1 [...] Telephone Encounter - Yara Morris RN - 01/05/2023 12:48 PM EST myg message sent documented in this encounter Plan of Treatment Upcoming Encounters Date Type Specialty Care Team Description 01/13/2023 Procedure Only Endoscopy Shaneka Santiago MD [address] [place] [address] 01/19/2023 Laboratory Laboratory Processing [facility] Mobile Home Draw [address] [place] [address] 01/21/2023 [facility] [address] [place] [address] 01/26/2023 Telemedicine Urology Juan José Walters MD [address] [address] 03/01/2023 Telemedicine Psychiatry Hugo Alcantara MD [address] [place] [address] 03/11/2023 Office Visit Neurology Hina Lion PA-C [address] [place] [address] 03/16/2023 Office Visit Pulmonary Alisha Carrero CRNP 132 [facility] [place] [address] 03/17/2023 PulmDiagnostic Pulmonary Function [place], Pft [facility] [place] [address] 07/07/2023 Office Visit Cardiology [facility]acheco DO [address] [facility] [place] [address] Health Maintenance Due Date Last Done Comments [...] 02/16/2022 LUNG CANCER SCREENING - USE SMARTSET 36819 Completed 03/16/2022 Influenza Vaccine (FLU shot) Completed [...] filedocumented as of this encounter Care Teams Assistant Signal Maintainer Relationship Specialty Start Date End Date Roger Alexandra MD [address] [place] [address] PCP - General Family Medicine 12/29/19 documented as of this encounter
--- OUTSIDE RECORDS SUMMARY | 2023-07-25 04:21 | External Medical Summary | Summary of Care ---
Author Name Unknown Organization [place] [address] Care Team Providers Care Parachute/Combatant Diver Officer Name Role Phone Jeevan Alexandra MD Primary Care Provider [phone] [phone] Reason for Visit * Reason Comments eRx-Medication Refill Encounter Details Date Type Department Care Team Description 01/10/2023 Refill Family Practice [facility] [address] [place] [id number] Jeevan Alexandra MD [address] [place] [address] Allergies Active Allergy Reactions Severity Noted Date Comments Aspirin Unknown 12/12/2007 von Willebrand's disease Salicylates 03/01/2000 von Willebrand's disease documented as of this encounter (statuses as of 01/11/2023) Medications Medication Sig Dispensed Refills Start Date End Date Status Warfarin Sodium 5 MG Oral Tablet (Coumadin)Indicatio ns:Paroxysmal atrial fibrillation (HCC) Take by mouth 1 Tablet in the evening. OR As directed by coumadin clinic. 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 180 Tablet 0 3 Active Furosemide 20 MG Oral Tablet (Lasix)Indications: Chronic diastolic CHF (congestive heart failure) (HCC) Take 1 Tablet by mouth daily as needed (for swelling of legs). Take once daily as needed for swelling of legs 30 Tablet 0 3 Active Baclofen 10 MG Oral Tablet (Lioresal)Indicatio ns:Chronic bilateral low back pain without sciatica Take 1 Tablet by mouth 3 times a day as needed for Muscle spasms. 90 Tablet 0 3 Active Nystatin 746714 UNIT/GM External Powder (Nyamyc) apply to affected area twice a day 15 g 1 3 Active Isosorbide Mononitrate ER 30 MG Oral Tablet Extended Release 24 Hour (Imdur) take 1 tablet by mouth daily 30 Tablet 5 3 Active Isosorbide Mononitrate ER 30 MG Oral Tablet Extended Release 24 Hour (Imdur) take 1 tablet by mouth daily 30 Tablet 5 2 01/11/20 23 Discontinued documented as of this encounter (statuses as of 01/11/2023) Active Problems Problem Noted Date Decreased functional [...] as of this encounter (statuses as of 01/11/2023) Resolved Problems Problem Noted Date Resolved Date [...] 12/21/2008 Atrial septal aneurysm 02/04/2006 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 0 06/01/2005 [...] as of this encounter (statuses as of 01/11/2023) Immunizations Name Administration Dates Next Due H1N1 [...] encounter Miscellaneous Notes * Telephone Encounter - Blossom Chery [facility] - 01/11/2023 11:23 AM ESTSigned Prescriptions: Disp Refills Isosorbide Mononitrate ER 30 MG Oral Table*30 Tab*5 Sig: take 1 tablet by mouth dailyAuthorizing Provider: JEEVAN ALEXANDRA User: BLOSSOM CHERY----- documented in this encounter Plan of Treatment Upcoming Encounters Date Type Specialty Care Team Description 01/13/2023 Procedure Only Endoscopy Shaenka Santiago MD [address] [place] [address] 01/19/2023 Laboratory Laboratory Processing [facility] [place] [place], [facility] Mobile Home Draw [address] [place] [address] 01/20/2023 Pharmacy Pharmacy Pharmacist, [facility] Sp 200 [facility] [place] [address] 01/21/2023 Count Includes [facility] Telepharmacy, [facility] [address] [place] [address] 01/26/2023 Telemedicine Urology Juan José Walters MD [facility] [address] [place] [address] 03/01/2023 Telemedicine Psychiatry Hugo Alcantara MD [address] [place] [address] 03/11/2023 Office Visit Neurology Hina Lion PA-C 200 [facility] [place] [address] 03/16/2023 Office Visit Pulmonary Alisha Carrero CRNP [address] [place] [address] 03/17/2023 PulmDiagnostic Pulmonary Function [place], Pft [address] [place] [address] 07/07/2023 Office Visit Cardiology Jerry Pacheco, DO [address] [place] [address] Health Maintenance Due Date Last Done Comments [...] 02/16/2022 LUNG CANCER SCREENING - USE SMARTSET 39317 Completed 03/16/2022 Influenza Vaccine (FLU shot) Completed [...] filedocumented as of this encounter Care Teams Parachute/Combatant Diver Officer Relationship Specialty Start Date End Date Jeevan Alexandra MD [address] [place] [address] PCP - General Family Medicine 12/29/19 documented as of this encounter
--- OUTSIDE RECORDS SUMMARY | 2023-07-25 04:21 | External Medical Summary | Summary of Care ---
Author Name Unknown Organization [place] [address] Care Team Providers Care Section Leader Screen Printing Name Role Phone Roger Alexandra MD Primary Care Provider [phone] Reason for Visit * Reason Onset Date Comments Medication Refill 12/31/2022 Encounter Details Date Type Department Care Team Description 12/31/[address] [facility] [address] [place] [address] Roger Alexandra MD 132 [facility] [place] [address] Chronic bilateral low back pain without sciatica Allergies Active Allergy Reactions Severity Noted Date Comments Aspirin Unknown 12/12/2007 von Willebrand's disease Salicylates 03/01/2000 von Willebrand's disease documented as of this encounter (statuses as of 12/31/2022) Medications Medication Sig Dispensed Refills Start Date [...] spasms. 90 Tablet 0 12/31/2022 Active Nystatin 064564 UNIT/GM External Powder (Nyamyc) apply to affected area twice a day 15 g 1 12/31/2022 Active documented as of this encounter (statuses as of 12/31/2022) Active Problems Problem Noted Date Decreased functional [...] as of this encounter (statuses as of 12/31/2022) Resolved Problems Problem Noted Date Resolved Date [...] as of this encounter (statuses as of 12/31/2022) Immunizations Name Administration Dates Next Due H1N1 [...] encounter Miscellaneous Notes * Telephone Encounter - Alvina Dalton LPN - 12/31/2022 4:15 PM EST Duplicate request See refill encounter from yesterday documented in this encounter Plan of Treatment Upcoming Encounters Date Type Specialty Care Team Description 01/04/2023 Laboratory Laboratory Processing [facility] Mobile Home Draw [address] [place] [address] 01/04/2023 [facility] [address] [place] [address] 01/13/2023 Procedure Only Endoscopy Shaneka Santiago MD [facility] [place] [id number] 01/26/2023 Telemedicine Urology Juan José Walters MD [address] [address] 03/01/2023 Telemedicine Psychiatry Hugo Alcantara MD [address] [place], [place] [address] 03/11/2023 Office Visit Neurology Hina Lion PA-C [address] [place] [address] 03/16/2023 Office Visit Pulmonary Alisha Carrero CRNP 132 [facility] [place] [address] 03/17/2023 PulmDiagnostic Pulmonary Function [place], Pft 132 [facility] [place] [address] 07/07/2023 Office Visit Cardiology Jerry Pacheco DO 132 [facility] [place] [address] Health Maintenance Due Date Last Done Comments [...] 02/16/2022 LUNG CANCER SCREENING - USE SMARTSET 03606 Completed 03/16/2022 Influenza Vaccine (FLU shot) Completed [...] sciatica documented in this encounter Care Teams Section Leader Screen Printing Relationship Specialty Start Date End Date Roger Alexandra MD 132 [place] [address] PCP - General Family Medicine 12/29/19 documented as of this encounter
--- OUTSIDE RECORDS SUMMARY | 2023-07-25 04:21 | External Medical Summary | Summary of Care ---
Author Name Unknown Organization [place] [address] Care Team Providers Care Development Intern Name Role Phone Roger Alexandra MD Primary Care Provider [phone] Encounter Details Date Type Department Care Team Description 01/01/2023 Orders Only Gastroenterology, [facility] [address] [place] [address] Shaneka Santiago MD [address] [place] [address] History of colonic polyps* Allergies Active Allergy Reactions Severity Noted Date [...] classification ([facility]),Chronic hypoxemic respiratory failure (HCC) Use [...] (Lasix)Indications:C hronic diastolic CHF (congestive heart failure) ([facility]) Take 1 Tablet by mouth daily as [...] spasms. 90 Tablet 0 12/31/2022 Active Nystatin 573079 UNIT/GM External Powder ([facility]) apply to affected area twice a day 15 g 1 12/31/2022 Active documented as of this encounter (statuses as of 01/01/2023) Active Problems Problem Noted Date Decreased functional mobility 08/28/2022 History of narcotic addiction 12/19/2021 Chronic hypoxemic respiratory failure COPD, group D, by GOLD 2017 classificati on 04/29/2021 Overview: Per COPD GOLD Classification PTSD (post-traumatic stress disorder) 04 / Chronic diastolic CHF (congestive heart failure) 10/23/2020 [...] Care Team Description 01/04/2023 Laboratory Laboratory Processing [facility] Mobile Home Draw [address] [facility] [address] 01/04/2023 [facility] [address] [facility] [place] [address] 01/13/2023 Procedure Only Endoscopy Shaneka Santiago MD 132 [facility] [place] [address] 01/26/2023 Telemedicine Urology Juan José Walters MD [address] [address] 03/01/2023 Telemedicine Psychiatry Hugo Alcantara MD [address] [place] [address] 03/11/2023 Office Visit Neurology Hina Lion PA-C [address] [place] [facility] [place] [address] 03/16/2023 Office Visit Pulmonary Alisha Carrero CRNP 132 [place] [address] 03/17/2023 PulmDiagnostic Pulmonary Function [place], Pft 132 [place] [address] 07/07/2023 Office Visit Cardiology Jerry Pacheco DO 132 [place] [address] Scheduled Orders Name Type Priority Associated Diagnoses Orde r Schedule COLONOSCOPY, DIAGNOSTIC (RECTUM) Procedures Routine History of colonic polyps Ordered: 01/01/2023 Health Maintenance Due Date Last [...] 02/16/2022 LUNG CANCER SCREENING - USE SMARTSET 40852 Completed 03/16/2022 Influenza Vaccine (FLU shot) Completed [...] as of this encounter Visit Diagnoses Diagnosis History of colonic polyps- Primary Personal history of colonic polyps documented in this encounter Care Teams Development Intern Relationship Specialty Start Date End Date Roger Alexandra MD [address] [place] [address] [place] [address] PCP - General Family Medicine 12/29/19 documented as of this encounter
--- OUTSIDE RECORDS SUMMARY | 2023-07-25 04:21 | External Medical Summary | Summary of Care ---
Author Name Unknown Organization [place] [address] Care Team Providers Care Chronometer Assembler And Adjuster Name Role Phone Roger Alexandra MD Primary Care Provider [phone] Reason for Visit * Reason Onset Date Comments Referral 01/01/2023 Encounter Details Date Type Department Care Team Description 01/01/2023 Telephone Pharmacy, [facility] [place] 200 [place] [address] Pharmacist1, [facility] [address] [facility] [address] Referral Allergies Active Allergy Reactions Severity Noted Date [...] [facility]),Chronic hypoxemic respiratory failure ([facility]) Use with nebulized meds 1 Each 0 09/16/2022 Active Full Kit Nebulizer SetIndications:COPD, group D, by GOLD 2017 classification ([facility]),Chronic hypoxemic respiratory failure ([facility]) Use with nebulizer 1 Each [...] spasms. 90 Tablet 0 12/31/2022 Active Nystatin 537963 UNIT/GM External Powder (Nyamyc) apply to affected [...] Miscellaneous Notes * Telephone Encounter - DANIEL Solares - 01/06/2023 4:26 PM EST Patient Phone Numbers Sent [facility] message to schedule [facility] appointment for polypharmacy management. [facility] message sent --yes Clinic will follow up again in 2 week(s). [Attempt # 1] Thank you, Xenia Sheppard Repairer Controller Tester 01/06/2023,4:26 PM * Telephone Encounter - Dov Medley, [facility] - 01/01/2023 2:20 PM EST Referral reviewed and is appropriate. Please schedule. Initial appt length: 40 min Appointment type indicated: In Person/televideo Preferred Clinic for Appointment: Zaheer evans Patient referred to [facility] clinic for polypharmacy on behalf of Roger Alexandra MD. Referral reviewed and relevant pre-visit information listed below: Polypharmacy/med rec Follow-up as scheduled. Dov Medley, [facility] 01/01/2023, 2:20 PM * Telephone Encounter - RUFINA Grier - 01/01/2023 1:01 PM EST Referral at request of out patient home health-[facility] home health with concerns for pt being to sleepy during the day and not sleeping well at night. Pt is on more than 20 medications-request review per CM workflow. Pharmacist Medication Therapy Management: Minimum frequency patient should be seen in person for medication management: as appropriate per clinical condition and patient status By my signature, I understand that my patient Kimberly Kendall will have her medication therapymanaged by the [facility] Medication Therapy [facility] ([facility]) per established policies, procedures, and protocols. I also certify that this referral may serve as an initiation of service for the management of drug therapy in the above noted patient. [facility] providers will be responsible for scheduling patient visits, obtaining appropriate laboratory studies, and adjusting medication management therapy per patient's need, in addition to those roles spelled out in the clinic policy, procedures, and drug management protocols. I understand that the service provided by the [facility] is voluntary and have informed patient that they can refuse the service at their discretion. I am aware that the [facility] will provide me with a copy of the patient encounter via my [employer]. I authorize the [facility] to carry out these activities on my behalf. I consider this program to be a necessary part of the patient's medical care. Kim Mercado RN Order Questions Question Answer Referral Priority Within 10 days (routine) Department: Primary Care Reason for Referral: Med Review documented in this encounter Plan of Treatment Upcoming Encounters Date Type Specialty Care Team Description 01/13/2023 Procedure Only Endoscopy Shaneka Santiago MD [address] [place] [address] 01/19/2023 Laboratory Laboratory Processing [facility] Mobile Home Draw [address] [place] [address] 01/20/2023 Pharmacy Pharmacy Pharmacist, [facility] [place] [address] 01/21/2023 Anticoagulation Pharmacy Telepharmacy, [facility] [address] [place] [address] 01/26/2023 Telemedicine Urology Juan José Walters MD [address] [address] 03/01/2023 Telemedicine Psychiatry Hugo Alcantara MD [address] [place] [address] 03/11/2023 Office Visit Neurology Hina Lion PA-C [address] [place] [address] 03/16/2023 Office Visit Pulmonary Alisha Carrero CRNP [address] [place] [address] 03/17/2023 PulmDiagnostic Pulmonary Function [place], Pft [address] [place] [address] 07/07/2023 Office Visit Cardiology Jerry Pacheco DO [address] [place] [address] Health Maintenance Due Date Last Done Comments [...] 02/16/2022 LUNG CANCER SCREENING - USE SMARTSET 15009 Completed 03/16/2022 Influenza Vaccine (FLU shot) Completed [...] filedocumented as of this encounter Care Teams Chronometer Assembler And Adjuster Relationship Specialty Start Date End Date Roger Alexandra MD [address] [place] [address] PCP - General Family Medicine 12/29/19 documented as of this encounter
--- OUTSIDE RECORDS SUMMARY | 2023-07-25 04:21 | External Medical Summary | Summary of Care ---
Author [place] [address] Care Team Providers Care Certified Activities Director Name Role Phone Roger Alexandra MD Primary Care Provider [phone] Reason for Visit * Reason Onset Date Comments Medication Question 10/20/2022 Encounter Details Date Type Department Care Team Description 10/20/2022 Telephone Pharmacy, [facility] 132 [facility] [place] [address] [facility] [place] [id number] Medication Question Allergies Active Allergy Reactions Severity Noted Date Comments Aspirin Unknown 12/12/2007 von Willebrand's disease Salicylates 03/01/2000 von Willebrand's disease documented as of this encounter (statuses as of 01/05/2023) Medications Medication Sig Dispensed Refills Start Date [...] by mouth daily 30 Tablet 5 2 Active Disposable Brief X-LargeIndications :Overactive bladder Attends X-Large Super Absorb Underwear 32 Each 2 2 Active Nebulizer DeviceIndications: COPD, group D, by GOLD 2017 classification ([facility]),Chronic hypoxemic respiratory failure ([facility]) Use with nebulized meds 1 Each 0 2 Active Full Kit Nebulizer SetIndications:ECHOCARDIOGRAPH TECH D, group D, by GOLD 2017 classification ([facility] [...] BEDTIME 60 Capsule 5 2 Active Nystatin 408232 UNIT/GM External Powder (Nyamyc) apply to affected area twice a day 15 g 1 2 023 Discontinued Mirtazapine 30 MG Oral Tablet (Remeron) Take by mouth 1 Tablet before bedtime. 30 Tablet 2 2 022 Discontinued(Re fill) guaiFENesin ER 600 MG Oral Tablet Extended Release 12 Hour (Humibid [place]) Take by mouth 600 mg in the morning AND 600 mg before bedtime. 0 023 Discontinued(Mau thomas preference/disc ontinuation) Fluticasone-Salmet jose martin 115-21 MCG/ACT Inhalation Aerosol Inhale by mouth 2 Puffs in the morning AND 2 Puffs before bedtime. 12 g 12 2 023 Discontinued(Re fill) Baclofen 10 MG Oral [...] as of this encounter (statuses as of 01/05/2023) Active Problems Problem Noted Date Decreased functional [...] as of this encounter (statuses as of 01/05/2023) Resolved Problems Problem Noted Date Resolved Date [...] as of this encounter (statuses as of 01/05/2023) Immunizations Name Administration Dates Next Due H1N1 [...] encounter Miscellaneous Notes * Telephone Encounter - Abena Moya RPh - 10/20/2022 1:25 PM EST Coumadin patient ordered bactrim today, please address. Thank you, Abena Moya, Pharm D Clinical Pharmacist 10/20/2022, 1:25 PM documented in this encounter Plan of Treatment Upcoming Encounters Date Type Specialty Care Team Description 01/13/2023 Procedure Only Endoscopy Shaneka Santiago MD [address] [place] [address] 01/26/2023 Telemedicine Urology Juan José Walters MD [address] [address] 03/01/2023 Telemedicine Psychiatry Hugo Alcantara MD [address] [place] [address] 03/11/2023 Office Visit Neurology iHna Lion PA-C [address] [place] [address] 03/16/2023 Office Visit Pulmonary Alisha Carrero CRNP 132 [facility] [place] [address] 03/17/2023 PulmDiagnostic Pulmonary Function [place], Pft [address] [place] [address] 07/07/2023 Office Visit Cardiology Jerry Pacheco DO [address] [place] [address] Health Maintenance Due Date Last Done Comments [...] 02/16/2022 LUNG CANCER SCREENING - USE SMARTSET 52154 Completed 03/16/2022 Influenza Vaccine (FLU shot) Completed [...] filedocumented as of this encounter Care Teams Certified Activities Director Relationship Specialty Start Date End Date Roger Alexandra MD [address] [place] [address] PCP - General Family Medicine 12/29/19 documented as of this encounter
--- OUTSIDE RECORDS SUMMARY | 2023-07-25 04:21 | External Medical Summary | Summary of Care ---
Author Name Unknown Organization [place] [address] Care Team Providers Care Electronic Field Service Engineer Name Role Phone Jeevan Mclean MD Primary Care Provider [phone] Reason for Visit * Reason Onset Date Comments Medication Refill 12/30/2022 Encounter Details Date Type Department Care Team Description 12/30/2022 Refill Family Practice [facility] [address] [place] [address] Jeevan Mclean MD 132 [facility] [place] [address] Allergies Active Allergy Reactions Severity Noted Date [...] 90 Tablet 3 02/16/2022 Active oxygen IN GASIndications: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 Take once daily as needed for swelling of legs 30 Tablet 0 12/24/2022 Active Sulfamethoxazole-Tr imethoprim 800-160 MG Oral Tablet (Bactrim DS) Take 1 Tablet by mouth in the morning and 1 Tablet before bedtime. Do all this for 10 days. Until gone.. 20 Tablet 0 12/28/2022 3 Active Nystatin 685976 UNIT/GM External Powder ([facility]) apply to affected area twice a day 15 g 1 12/31/2022 Active Nystatin 577654 UNIT/GM External Powder (Nyamyc) apply to affected area twice a day 15 g 1 11/18/2022 3 Discontinu ed(Refill) Baclofen 10 MG Oral Tablet (Lioresal)Indicatio ns:Chronic bilateral low back pain without sciatica take 1 tablet by mouth three times a day if needed for muscle spasm 90 Tablet 0 11/24/2022 3 Discontinu ed(Refill) documented as of this [...] Telephone Encounter - Jeevan Mclean MD - 12/31/2022 1:09 PM ESTSigned Prescriptions: Disp Refills Nystatin 434582 UNIT/GM External Powder (N*15 g 1 Sig: apply to affected area twice a day Authorizing Provider: JEEVAN MCLEAN * Telephone Encounter - Alisha Michele LPN - 12/31/2022 11:34 AM ESTPending Prescriptions: Disp Refills Nystatin 175039 UNIT/GM External Powder (N*15 g 1 Sig: apply to affected area twice a day * Telephone Encounter - Alisha Michele LPN - 12/31/2022 11:33 AM EST Pending Prescriptions: Disp Refills Nystatin 688343 UNIT/GM External Powder (*15 g 1 Sig: apply to affected area twice a day Last Visit: 09/30/2022 (in office), 12/16/2022 (telemedicine) Next Visit: Visit date not found Last date the medication was ordered: 11/18/22 Patient Active Problem List Diagnosis Code Irritable bowel syndrome with diarrhea K58.0 Medical home patient encounter Z00.8 Depression with anxiety F41.8 Obstructive sleep apnea G47.33 Von Willebrand disease D68.00 Idiopathic cardiomyopathy ([facility]) I42.9 Acquired hypothyroidism E03.9 Super obese E66.9 Chronic bilateral low back pain without sciatica M54.50, G89.29 Paroxysmal atrial fibrillation ([facility]) I48.0 Drug-seeking behavior Z76.5 History of multiple strokes Z86.73 Chronic diastolic CHF (congestive heart failure) ([facility]) I50.32 PTSD (post-traumatic stress disorder) F43.10 COPD, group D, by GOLD 2017 classification ([facility]) J44.9 Chronic hypoxemic respiratory failure (HCC) J96.11 History of narcotic addiction ([facility]) F11.21 Decreased functional mobility R26.89 Labs: Lab [...] Care Team Description 01/04/[address] [facility] Mobile Home Draw [address] [place] [address] 01/04/2023 [facility] [address] [place] [address] 01/13/2023 Procedure Only Endoscopy [facility]ka Santiago MD [facility] [place] [address] 01/26/2023 Telemedicine Urology Juan José Walters MD [address] [address] 03/01/2023 Telemedicine Psychiatry Hugo Alcantara MD [address] [place], [place] [address] 03/11/2023 Office Visit Neurology Hina Lion PA-C [address] [place] [address] 03/16/2023 Office Visit Pulmonary [facility] [place] [address] 03/17/2023 PulmDiagnostic Pulmonary Function [place], Pft [address] [place] [address] 07/07/2023 Office Visit Cardiology [facility]acheco DO [facility] [place] [address] Health Maintenance Due Date Last Done Comments [...] 02/16/2022 LUNG CANCER SCREENING - USE SMARTSET 79184 Completed 03/16/2022 Influenza Vaccine (FLU shot) Completed [...] filedocumented as of this encounter Care Teams Electronic Field Service Engineer Relationship Specialty Start Date End Date Jeevan Mclean MD [address] [place] [address] PCP - General Family Medicine 12/29/19 documented as of this encounter
--- OUTSIDE RECORDS SUMMARY | 2023-07-25 04:21 | External Medical Summary | Summary of Care ---
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 respiratory failure (HCC),COPD, group D, [...] OPD, group D, by GOLD 2017 classification ([facility]),Chronic hypoxemic respiratory failure ([facility]) Use with nebulized meds 1 Each 0 09/16/2022 Active Full Kit Nebulizer SetIndications:COPD , group D, by GOLD 2017 classification ([facility]),Chronic hypoxemic respiratory failure ([facility]) Use with nebulizer 1 Each 0 [...] 3 Active Baclofen 10 MG Oral Tablet (Lioresal)Dovo ns:Chronic bilateral low back pain without sciatica Take 1 Tablet by mouth 3 times a day as needed for Muscle spasms. 90 Tablet 0 12/31/2022 Active Nystatin 473082 UNIT/GM External Powder (Nyamyc) apply to affected area twice a day 15 g 1 11/18/2022 3 Discontinu ed(Refill) Baclofen 10 MG Oral Tablet (Lioresal)Goodtio ns:Chronic bilateral low back pain without sciatica [...] 12/31/2022 1:09 PM ESTSigned Prescriptions: Disp Refills Baclofen 10 MG Oral Tablet (Lioresal) 90 Tab*0 Sig: Take 1 Tablet by mouth 3 times a day as needed for Muscle spasms. Authorizing Provider: JEEVAN MCLEAN * Telephone Encounter - Alisha Michele LPN - 12/31/2022 11:36 AM ESTPending Prescriptions: Disp Refills Baclofen 10 MG Oral Tablet (Lioresal) 90 Tab*0 Sig: Take 1 Tablet by mouth 3 times a day as needed for Muscle spasms. * Telephone Encounter - Alisha Michele LPN - 12/31/2022 11:34 AM EST Pending Prescriptions: Disp Refills Baclofen 10 MG Oral Tablet (Lioresal) 90 Tab*0 Sig: Take 1 Tablet by mouth 3 times a day as needed for Muscle spasms. Last Visit: 09/30/2022 (in office), 12/16/2022 (telemedicine) Next Visit: Visit date not found Last date the medication was ordered: 11/24/22 Patient Active Problem List Diagnosis Code Irritable bowel syndrome with diarrhea K58.0 Medical home patient encounter Z00.8 Depression with anxiety F41.8 Obstructive sleep apnea G47.33 Von Willebrand disease D68.00 Idiopathic cardiomyopathy (HCC) I42.9 Acquired hypothyroidism E03.9 Super obese E66.9 Chronic bilateral low back pain without sciatica M54.50, G89.29 Paroxysmal atrial fibrillation (HCC) I48.0 Drug-seeking behavior Z76.5 History of multiple strokes Z86.73 Chronic diastolic CHF (congestive heart failure) ([facility]) I50.32 PTSD (post-traumatic stress disorder) F43.10 COPD, group D, by GOLD 2017 classification ([facility]) J44.9 Chronic hypoxemic respiratory failure ([facility]) J96.11 History of narcotic addiction ([facility]) F11.21 Decreased functional mobility R26.89 Labs: Lab [...] Care Team Description 01/04/2023 Laboratory Laboratory [place] [facility] [place] [facility] Mobile Home Draw [address] [place] [address] 01/04/2023 [facility] [address] [place] [address] 01/13/2023 Procedure Only Endoscopy Shaneka Santiago MD [address] [place] [address] 01/26/2023 Telemedicine Urology Juan José Walters MD [address] [address] 03/01/2023 Telemedicine Psychiatry Hugo Alcantara MD [address] [place] [address] 03/11/2023 Office Visit Neurology Hina Lion PA-C [address] [place] [address] 03/16/2023 Office Visit Pulmonary Alisha Carrero CRNP 132 [facility] [address] [place] [address] 03/17/2023 PulmDiagnostic Pulmonary Function Bartolo Whitfieldt [address] [address] 07/07/2023 Office Visit Cardiology [facility]acheco DO [facility] [place] [address] Health Maintenance Due Date Last Done Comments [...] 02/16/2022 LUNG CANCER SCREENING - USE SMARTSET 41406 Completed 03/16/2022 Influenza Vaccine (FLU shot) Completed [...] sciatica documented in this encounter Care Teams Hairspring Cutter Relationship Specialty Start Date End Date Jeevan Mclean MD [address] [address] PCP - General Family Medicine 12/29/19 documented as of this encounter
--- OUTSIDE RECORDS SUMMARY | 2023-07-25 04:21 | External Medical Summary | Summary of Care ---
Author Name Unknown Organization [place] [address] Care Team Providers Care Net Programmer Analyst Name Role Phone Roger Alexandra MD Primary Care Provider [phone] Reason for Visit * Reason Onset Date Comments FYI 01/06/2023 Encounter Details Date Type Department Care Team Description 01/06/2023 Telephone Family Practice [facility] [address] [address] Roger Alexandra MD [address] [place] [address] FYI Allergies Active Allergy Reactions Severity Noted [...] spasms. 90 Tablet 0 12/31/2022 Active Nystatin 054414 UNIT/GM External Powder (Nyamyc) apply to affected [...] Miscellaneous Notes * Telephone Encounter - RUFINA Underwood - 01/06/2023 2:13 PM EST Pt states she was supposed to receive a phone call from a nurse for instructions for her colonoscopy on 01/13/23. Pt transferred to Gastro. documented in this encounter Plan of Treatment Upcoming Encounters Date Type Specialty Care Team Description 01/13/2023 Procedure Only Endoscopy Shaneka Santiago MD [address] [place] [address] 01/19/2023 Laboratory Laboratory Processing [facility] [place] [facility] Mobile Home Draw [address] [place] [address] 01/21/2023 [facility] [address] [place] [address] 01/26/2023 Telemedicine Urology Juan José Walters MD [address] [address] 03/01/2023 Telemedicine Psychiatry Hugo Alcantara MD [address] [place] [address] 03/11/2023 Office Visit Neurology Hina Lion PA-C [address] [place] [address] 03/16/2023 Office Visit Pulmonary Alisha Carrero CRNP 132 [facility] [place] [address] 03/17/2023 PulmDiagnostic Pulmonary Function [facility], [facility] [address] [place] [address] 07/07/2023 Office Visit Cardiology Jerry Pacheco DO [address] [place] [address] Health Maintenance Due Date Last Done Comments [...] 02/16/2022 LUNG CANCER SCREENING - USE SMARTSET 08160 Completed 03/16/2022 Influenza Vaccine (FLU shot) Completed [...] filedocumented as of this encounter Care Teams Net Programmer Analyst Relationship Specialty Start Date End Date Roger Alexandra MD [address] [address] [address] PCP - General Family Medicine 12/29/19 documented as of this encounter
--- OUTSIDE RECORDS SUMMARY | 2023-07-25 04:21 | External Medical Summary | Summary of Care ---
Author Name Unknown Organization [place] [address] Care Team Providers Care Flat Bed Operator Name Role Phone Roger Alexandra MD Primary Care Provider [phone] [phone] Reason for Visit * Reason Comments Dosage Adjustment Via Phone (anticoag Cl inic) Encounter Details Date Type Department Care Team Description 01/06/2023 Anticoagulation Pharmacy Call Center 58[address]60 [facility] [place] [address] Telepharmacy, [facility] [address] [facility] [address] custodial current use 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* Allergies Active [...] spasms. 90 Tablet 0 12/31/2022 Active Nystatin 222138 UNIT/GM External Powder (Nyamyc) apply to affected [...] 02/04/2006 12/21/2008 Atrial septal aneurysm 02/04/2006 9 custodial current use 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 0 06/01/2005 [...] Progress Notes * Kim Mercado RPh - 01/06/2023 2:17 PM EST 01/06/2023 02:20 PM EST by Kim Mercado RPh 01/06/2023 02:20 PM EST by Kim Mercado RPh Outgoing Kimberly Kendall (Self) Remove - Spoke to Patient Pt was given no holding preference for upcoming procedure 01/13. Will reach out to provider to confirm if 3 day hold would be sufficient. Pt anticoagulated for history of Cerebrovascular disease, has held without bridging in the past dueto long periods of subtherapeutic INRs (approved by PCP) Kim Mercado [facility], Pharm.D. Clinical Pharmacist Telepharmacy [phone] 01/06/2023,2:24 PM Electronically signed by Kim Mercado [facility] located [facility] at 01/06/2023 2:25 PM EST documented in this encounter Plan of Treatment Upcoming Encounters Date Type Specialty Care Team Description 01/13/2023 Procedure Only Endoscopy Shaneka Santiago MD 132 [facility] [address] [address] 01/19/2023 Laboratory Laboratory Processing [facility] [place], [facility] Mobile Home Draw [address] [place] [address] 01/21/2023 [facility] 58 60 [place] [address] 01/26/2023 Telemedicine Urology Juan José Walters MD [address] [address] 03/01/2023 Telemedicine Psychiatry Hugo Alcantara MD [address] [place] [address] 03/11/2023 Office Visit Neurology Hina Lion PA-C [address] [place] [address] 03/16/2023 Office Visit Pulmonary Alisha Carrero CRNP 132 [facility] [place] [address] 03/17/2023 PulmDiagnostic Pulmonary Function [place], [facility] [address] [place] [address] 07/07/2023 Office Visit Cardiology Jerry Pacheco, DO [address] [place] [address] Health Maintenance Due Date Last Done Comments [...] 02/16/2022 LUNG CANCER SCREENING - USE SMARTSET 59578 Completed 03/16/2022 Influenza Vaccine (FLU shot) Completed [...] as of this encounter Visit Diagnoses Diagnosis custodial current use 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- Primary documented in this encounter Care Teams Flat Bed Operator Relationship Specialty Start Date End Date Roger Alexandra MD 132 [address] [address] PCP - General Family Medicine 12/29/19 documented as of this encounter
--- OUTSIDE RECORDS SUMMARY | 2023-07-25 04:21 | External Medical Summary | Summary of Care ---
Author Name Unknown Organization [place] [address] Care Team Providers Care Cellophane Wrapping Examiner Name Role Phone Roger Alexandra MD Primary Care Provider [phone] [phone] Reason for Visit * Reason Comments Dosage Adjustment Via Phone (anticoag Cl inic) Encounter Details Date Type Department Care Team Description 01/05/2023 Anticoagulation Pharmacy Call Center 58-60 [facility] [place] [address] Telepharmacy, [facility] [address] [facility] [address] jail current use 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* Allergies Active [...] spasms. 90 Tablet 0 12/31/2022 Active Nystatin 824177 UNIT/GM External Powder (Nyamyc) apply to affected [...] of this encounter Progress Notes * Kim Mercado, [facility] - 01/05/2023 3:29 PM EST Images from the original note were not included. Medication Therapy Disease Management - Anticoagulation Patient: Kimberly Kendall : 1960 Contacts Type Contact Phone/Fax 01/05/2023 03:35 PM EST Phone (Outgoing) Kimberly Kendall (Self) [phone] (M) Spoke to Patient Current Warfarin Dose As of 01/05/2023 Warfarin maintenance plan: 5 mg (5 mg x 1) every day Patient-Reported Symptoms: Patient Findings Positives: Change in medications Negatives: Signs/symptoms of thrombosis, Signs/symptoms of bleeding, Change in health, Change in alcohol use, Change in activity, Upcoming invasive procedure, Missed doses, Extra doses, Change in diet/appetite, Bruising Comments: Pt still has 4 days of Bactrim. Pt states she has been taking Warfarin daily at decreaseddose while on Bactrim as per last note. Provider gave no holding preference for upcoming procedure.Pt has appt with them tomorrow and will ask if he prefers 3 or 5 day hold. Per previous notes pt has held w/o bridge due to long periods of subtherapeutic INR. INR Result As of 01/05/2023 INR goal: 2.0-3.0 INR used for dosin.2 (01/04/2023) Warfarin Plan As of 01/05/2023 Full warfarin instructions: 01/05: 7.5 mg; Otherwise 5 mg every day Next INR check: 01/20/2023 Additional Dosing Information: Description GML Also sent MyG after trying to call 01/13/23 - colonoscopy Repeat PT/INR in 1 week(s) after procedure Weekly dose: not changed Kim Mercado RPh Clinical Pharmacist 01/05/2023, 3:39 PM documented in this encounter Plan of Treatment Upcoming Encounters Date Type Specialty Care Team Description 01/06/2023 [facility] 58 60 [facility] [place] [address] 01/13/2023 Procedure Only Endoscopy Shaneka Santiago MD [address] [place] [address] 01/21/2023 [facility] 58 60 [facility] [place] [address] 01/26/2023 Telemedicine Urology Juan José Walters MD 27 [facility] [address] [place] [address] 03/01/2023 Telemedicine Psychiatry Hugo Alcantara MD [address] [place] [address] 03/11/2023 Office Visit Neurology Hina Lion PA-C 200 [facility] [place] [address] 03/16/2023 Office Visit Pulmonary Alisha Carrero CRNP [address] [place] [address] 03/17/2023 PulmDiagnostic Pulmonary Function [place], [facility] [address] [place] [address] 07/07/2023 Office Visit Cardiology Jerry Pacheco DO [address] [place] [address] Health Maintenance Due Date Last Done Comments [...] 02/16/2022 LUNG CANCER SCREENING - USE SMARTSET [address] Completed 03/16/2022 Influenza Vaccine (FLU shot) Completed [...] as of this encounter Visit Diagnoses Diagnosis jail current use 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- Primary documented in this encounter Care Teams Cellophane Wrapping Examiner Relationship Specialty Start Date End Date Roger Alexandra MD [address] [address] [address] PCP - General Family Medicine 12/29/19 documented as of this encounter
--- OUTSIDE RECORDS SUMMARY | 2023-07-25 04:21 | External Medical Summary | Summary of Care ---
Author Name Unknown Organization [facility] [address] Care Team Providers Care Employee Relations Manager Name Role Phone Roger Alexandra MD Primary Care Provider [phone] [phone] Reason for Visit * Reason Onset Date Comments case management 01/05/2023 Encounter Details Date Type Department Care Team Description 01/05/2023 Keyboard Operator Telephone Family [facility] 132 [facility] [place] [id number] Yara Morris, waste management specialist Allergies Active Allergy Reactions Severity [...] spasms. 90 Tablet 0 12/31/2022 Active Nystatin 031203 UNIT/GM External Powder (Nyamyc) apply to affected [...] Santiago MD [address] [place] [address] 01/26/2023 Telemedicine Urology Juan José Walters MD 27 [facility] [address] [place] [address] 03/01/2023 Telemedicine Psychiatry Hugo Alcantara MD [address] [place] [facility] [place] [address] 03/11/2023 Office Visit Neurology Hina Lion PA-C [address] [place] [facility] [place] [address] 03/16/2023 Office Visit Pulmonary [facility]ro CRNP [facility] [place] [address] 03/17/2023 PulmDiagnostic Pulmonary Function [place], [facility] [address] [place] [address] 07/07/2023 Office Visit Cardiology Jerry Pacheco DO 132 [facility] [place] [address] Health Maintenance Due Date Last Done Comments [...] 02/16/2022 LUNG CANCER SCREENING - USE SMARTSET [address]67[address] Completed 03/16/2022 Influenza Vaccine (FLU shot) Completed [...] filedocumented as of this encounter Care Teams Employee Relations Manager Relationship Specialty Start Date End Date Roger Alexandra MD [address] [address] PCP - General Family Medicine 12/29/19 documented as of this encounter
--- OUTSIDE RECORDS SUMMARY | 2023-07-25 04:21 | External Medical Summary ---
Author Name Unknown Address Unknown Organization K01:[facility] - [facility] [address] [facility] [address] [facility] [address] Laboratory Report Ordering Provider Test Date Status SUMAN STANFORD 01/04/2023 10:09:00 Final Observation Date Value Abnormality Reference (Units ) Status PT 01/04/2023 10:09:00 15.7 Above high normal 11 .6-15.2 (seconds) Final INR 01/04/2023 10:09:00 1.2 0.8-1.2 Final Performing Location [facility] - [address] [place] [address]
--- OUTSIDE RECORDS SUMMARY | 2023-07-25 04:21 | External Medical Summary | Summary of Care ---
Author Name Unknown Organization [place] [address] Care Team Providers Care Tile Grinder Name Role Phone Roger Alexandra MD Primary Care Provider [phone] [phone] Reason for Visit * Reason Comments Dosage Adjustment Via Phone (anticoag Cl inic) Encounter Details Date Type Department Care Team Description 01/04/2023 Anticoagulation Pharmacy Call Center 58-60 [facility] [place] [address] Telepharmacy, [facility] 58 60 [facility] [place] [address] Anticoagulation management encounter* Allergies Active Allergy Reactions Severity Noted Date Comments Aspirin Unknown 12/12/2007 von Willebrand's disease Salicylates 03/01/2000 von Willebrand's disease documented as of this encounter (statuses as of 01/04/2023) Medications Medication Sig Dispensed Refills Start Date [...] spasms. 90 Tablet 0 12/31/2022 Active Nystatin 666514 UNIT/GM External Powder ([facility]) apply to affected area twice a day 15 g 1 12/31/2022 Active documented as of this encounter (statuses as of 01/04/2023) Active Problems Problem Noted Date Decreased functional [...] as of this encounter (statuses as of 01/04/2023) Resolved Problems Problem Noted Date Resolved Date [...] as of this encounter (statuses as of 01/04/2023) Immunizations Name Administration Dates Next Due H1N1 [...] Progress Notes * Kim Mercado RPh - 01/04/2023 4:27 PM EST INR still in process for today. PT has weekly dose (decreased while on Bactrim). [facility] will follow upin AM once INR results are in. Kim Mercado Rph, Pharm.D. Clinical Pharmacist [facility] [phone] 01/04/2023,4:28 PM documented in this encounter Plan of Treatment Upcoming Encounters Date Type Specialty Care Team Description 01/05/[address] [facility] [address] 60 [place] [address] 01/13/2023 Procedure Only Endoscopy Shaneka Santiago MD [address] [place] [address] 01/26/2023 Telemedicine Urology Juan José Walters MD [address] [place] [address] 03/01/2023 Telemedicine Psychiatry Hugo Alcantara MD [address] [place] [address] 03/11/2023 Office Visit Neurology Hina Lion PA-C 200 [facility] [address] 03/16/2023 Office Visit Pulmonary Alisha Carrero CRNP [address] [address] 03/17/2023 PulmDiagnostic Pulmonary Function [place], [facility]ft [address] [address] 07/07/2023 Office Visit Cardiology Jerry Pacheco DO 132 [address] [place] [address] Health Maintenance Due Date Last Done Comments [...] 02/16/2022 LUNG CANCER SCREENING - USE SMARTSET 04649 Completed 03/16/2022 Influenza Vaccine (FLU shot) Completed [...] monitoring documented in this encounter Care Teams Tile Grinder Relationship Specialty Start Date End Date Roger Alexandra MD 132 [address] [address] PCP - General Family Medicine 12/29/19 documented as of this encounter
--- OUTSIDE RECORDS SUMMARY | 2023-07-25 04:22 | External Medical Summary | Summary of Care ---
Author Name Unknown Organization [place] [address] Care Team Providers Care Currency Exchange Specialist Name Role Phone Roger Alexandra MD Primary Care Provider [phone] Reason for Referral * Evaluate & Treat - Unlimited Visits (Within 10 days (routine)) - Authorized Specialty Diagnoses / Procedures Referred By Contlakia t Referred To Contact Urology Diagnoses Dysuria Overactive bladder Roger Alexandra MD [address] [place] [address] Referral ID Status Reason Start Date Expiration Date Visits Requested Visits Authorized [id number] Authorized Specialty Services Required 12/23/2022 999 999 Question Answer Referral Priority Within 10 days (routine) What is the patient being referred for? Urinary Concerns Comments Incontinence and history of uti. Reason for Visit * Reason Onset Date Comments Order Request 12/22/2022 Encounter Details Date Type Department Care Team Description 12/22/2022 Telephone Family Practice [facility] [address] [address] Roger Alexandra MD [address] [place] [place] [address] Order Request Allergies Active Allergy Reactions Severity Noted Date Comments Aspirin Unknown 12/12/2007 von Willebrand's disease Salicylates 03/01/2000 von Willebrand's disease documented as of this encounter (statuses as of 12/23/2022) Medications Medication Sig Dispensed Refills Start Date End Date Status Warfarin Sodium 5 MG Oral Tablet (Coumadin)Indication s:Paroxysmal atrial fibrillation (HCC) Take by mouth 1 Tablet in the evening. OR As directed by coumadin clinic. 90 Tablet 3 02/16/2022 Active oxygen IN GASIndications:Chron ic hypoxemic respiratory failure (HCC),COPD, group D, by GOLD 2017 classification ([facility]) Use 2 LPM at rest, 4 [...] ([facility]),Chronic hypoxemic respiratory failure (HCC) Use with nebulized meds 1 Each 0 09/16/2022 Active Full Kit Nebulizer SetIndications:COPD, group D, by GOLD 2017 classification ([facility]),Chronic hypoxemic respiratory failure (HCC) Use with [...] of Breath. 540 mL 12 10/23/2022 Active Nystatin 981725 UNIT/GM External Powder (Nyamyc) apply to affected area twice a day 15 g 1 11/18/2022 Active Baclofen 10 MG Oral Tablet (Lioresal)Indication s:Chronic bilateral low back pain without sciatica take 1 tablet by mouth three times a day if needed for muscle spasm 90 Tablet 0 11/24/2022 Active Vitron-C 65-125 MG Oral Tablet (Iron-Vitamin [...] before bedtime. 120 Tablet 2 12/16/2022 Active documented as of this encounter (statuses as of 12/23/2022) Active Problems Problem Noted Date Decreased functional [...] as of this encounter (statuses as of 12/23/2022) Resolved Problems Problem Noted Date Resolved Date [...] as of this encounter (statuses as of 12/23/2022) Immunizations Name Administration Dates Next Due H1N1 [...] Miscellaneous Notes * Telephone Encounter - RUFINA Garcia - 12/23/2022 2:15 PM EST Dysuria [R30.0] - Primary Overactive bladder [N32.81] Urology referral placed. * Telephone Encounter - Yara Morris RN - 12/23/2022 2:06 PM EST Spoke with patient, she reports the abdominal pressure is unchanged for the past couple of weeks and she does not feel it is necessary to go to urgent care or ER. She is unsure if she has fever or chills. I discussed with her that we have to wait to see what the culture shows, and go from there. Also discussed referral to urology. She is in agreement. Gave recommendations from Dr. Alexandra, and instructed if pain worsens, or develops any fever, to be evaluated. She verbalizes understanding. * Telephone Encounter - Roger Alexandra MD - 12/23/2022 1:30 PM EST Urgent care or ER since I can't see her. * Telephone Encounter - Temi West LPN - 12/23/2022 12:50 PM EST Gracie from [facility] is calling. States that she obtained the pt's urine specimen. Reports that the pt is complaining of lower abd pressure. Completely emptied the pt's bladder via straight cath and obtained approximately 80 cc and the pt continued to have c/o's of lower abd pressure afterwards. Pt's urine was clear, yellow and odor free. Please advise. * Telephone Encounter - Yara Morris RN - 12/22/2022 4:02 PM EST Called [facility] and was asked to fax order as well. Faxed to # [phone] * Telephone Encounter - Roger Alexandra MD - 12/22/2022 1:17 PM EST Signed orders. And yes I would recommend she see the urologist * Telephone Encounter - Yara Morris RN - 12/22/2022 1:[address] Alexandra, orders pended for UA w/micro and culture, if appropriate? (will fax to [facility] to obtain) Also looks like she had seen uro previously, but not since 2013. Would you recommend she re-establish for ongoing urine concerns? Thank you! * Telephone Encounter - Roger Alexandra MD - 12/22/2022 1:01 PM EST Noted. * Telephone Encounter - Mónica Kurtz LPN - 12/22/2022 12:50 PM EST Gracie calling from [facility]. Discharged her 2 weeks ago. Received another referral. Will see her foranother couple weeks. She has a lot of issues with non-compliance. That is why she was discharged. She gets very sob. Lungs are wheezy. Won't do the nebulizer because it makes her heart race. She hasa lot of anxiety issues. Will use inhaler. HR 108 today. She thinks she has another UTI. She has had a stroke and doesn't know when she urinates. They will need the order for a straight cath if the doctor wants it. She says it is dark and has an odor to it. She is taking more than 3000 mg of tylenol. Was told about it and is not willing to comply. Will bring in therapy and see if she refuses it again. Will send the orders over for signature. documented in this encounter Plan of Treatment Upcoming Encounters Date Type Specialty Care Team Description 12/24/2022 Laboratory [place] [facility] [place] [facility] [address] [facility] [address] 12/25/2022 [facility] [address] [place] [address] 01/13/2023 Procedure Only Endoscopy Shaneka Santiago MD 132 [facility] [place] [address] 02/22/2023 Telemedicine Psychiatry Hugo Alcantara MD [address] [place] [address] 03/11/2023 Office Visit Neurology Hina Lion PA-C [address] [place] [address] 03/16/2023 Office Visit Pulmonary Alisha Carrero CRNP 132 [place] [place] [address] 03/17/2023 PulmDiagnostic Pulmonary Function [place], Pft 132 [facility] [place] [address] 07/07/2023 Office Visit Cardiology Jerry Pacheco DO 132 [facility] [place] [address] Pending Results Name Type Priority Associated Diagnoses Date /Time CULTURE, URINE, QUANTITATIVE Lab Routine Dysuria 12/23/2022 12:31 PM EST Scheduled Orders Name Type Priority Associated Diagnoses Orde r Schedule CULTURE, URINE, QUANTITATIVE Lab Routine Dysuria Expected: 12/23/2022 (Approximate), Expires: 12/22/2023 Scheduled Referrals Name Type Priority Associated Diagnoses Orde r Schedule UROLOGY REFERRAL OP Referral Within 10 da ys (routine) Dysuria Overactive bladder Ordered: 12/23/2022 Health Maintenance Due Date Last Done Comments [...] 02/16/2022 LUNG CANCER SCREENING - USE SMARTSET 12226 Completed 03/16/2022 Influenza Vaccine (FLU shot) Completed [...] filedocumented as of this encounter Results * (ABNORMAL) URINALYSIS WITH MICROSCOPIC EXAM (12/23/2022 12:31 PM EST) Color, Urine Yellow Light Yellow, Yellow, Dark Yellow 12/23/2022 1:08 PM EST [facility] Clarity, Urine Clear Clear 12/23/2022 1:08 PM EST [facility] [facility] Glucose, Urine Negative Negative mg/dL 12/23/2022 1:08 PM EST [facility] [place] [facility]10 Bilirubin, Urine Negative Negative 12/23/2022 1:08 PM EST [facility] [place] [facility]10 Ketone, Urine Negative Negative mg/dL 12/23/2022 1:08 PM EST [facility] [place]10 Specific Mackey, Urine 1.020 1.003 - 1.030 12/23/2022 1:08 PM EST [facility] [place] [facility]10 Blood, Urine Negative Negative 12/23/2022 1:08 PM EST [facility] [place] [facility] pH, Urine 5.5 5.0 - 7.5 Units 12/23/2022 1:08 PM EST [facility] [place] [facility]10 Protein, Urine Negative Negative mg/dL 12/23/2022 1:08 PM EST [facility] [place] [facility]10 Urobilinogen, Urine 0.2 0.2, 1.0 mg/dL 12/23/2022 1:08 PM EST [facility] [place] [facility]10 Nitrite, Urine Negative Negative 12/23/2022 1:08 PM EST [facility] [place] [facility]10 Esterase, Urine Trace(A) Negative 12/23/2022 1:08 PM EST [facility] RBC, Urine 0-2 0 - 2 /HPF 12/23/2022 1:08 PM EST [facility] WBC, Urine 0-2 0 - 2 /HPF 12/23/2022 1:08 PM EST [facility]10 Bacteria, Urine 0-25 0 - 25 /HPF 12/23/2022 1:08 PM EST [facility]10 Hyaline, Cast, Urine 5-9(A) None /LPF 12/23/2022 1:08 PM EST [facility]10 Urine Urine specimen / Unknown Non-blood Collection / Unknown 12/23/2022 12:31 PM EST 12/23/2022 12:31 PM EST Roger Alexandra MD LAB URINE ORDERAB LES [facility]10 [address] [facility] [place] [address] documented in this encounter Visit Diagnoses Diagnosis Dysuria- Primary Overactive bladder Hypertonicity of bladder documented in this encounter Care Teams Currency Exchange Specialist Relationship Specialty Start Date End Date Roger Alexandra MD [address] [address] PCP - General Family Medicine 12/29/19 documented as of this encounter
--- OUTSIDE RECORDS SUMMARY | 2023-07-25 04:22 | External Medical Summary | Summary of Care ---
Author Name Unknown Organization [place] [address] Care Team Providers Care Medical Sociologist Name Role Phone Roger Alexandra MD Primary Care Provider [phone] Reason for Visit * Reason Onset Date Comments Follow Up 12/14/2022 Encounter Details Date Type Department Care Team Description 12/14/2022 Telephone Pulmonary Medicine, [facility] [address] [address] Alisha Carrero CRNP 132 [facility] [place] [place] [address] Follow Up Allergies Active Allergy Reactions Severity Noted Date Comments Aspirin Unknown 12/12/2007 von Willebrand's disease Salicylates 03/01/2000 von Willebrand's disease documented as of this encounter (statuses as of 12/30/2022) Medications Medication Sig Dispensed Refills Start Date End Date Status Warfarin Sodium 5 MG Oral Tablet (Coumadin)Indicatio ns:Paroxysmal atrial fibrillation (HCC) Take by mouth 1 Tablet in the evening. OR As directed by coumadin clinic. 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 540 mL 12 10/23/2022 Active Nystatin 859811 UNIT/GM External Powder (Nyamyc) apply to affected area twice a day 15 g 1 11/18/2022 Active Baclofen 10 MG Oral Tablet (Lioresal)Indicatio ns:Chronic bilateral low back pain without sciatica take 1 tablet by mouth three times a day if needed for muscle spasm 90 Tablet 0 11/24/2022 Active Vitron-C 65-125 MG Oral Tablet (Iron-Vitamin C 65-125 mg per tab) Take 1 Tablet by mouth in the morning. 30 Tablet 11 12/09/2022 Active guaiFENesin ER 600 MG Oral Tablet Extended Release 12 Hour (Humibid LA) Take by mouth 600 mg in the morning AND 600 mg before bedtime. 0 3 Discontinu ed(Patient preference /discontin uation) traMADol HCl 50 MG Oral Tablet (Ultram)Indications :Chronic bilateral low back pain without sciatica Take 2 Tablets by mouth every 8 hours as needed for Pain, Moderate. 180 Tablet 0 11/24/2022 3 Discontinu ed(Refill) documented as of this encounter (statuses as of 12/30/2022) Active Problems Problem Noted Date Decreased functional [...] as of this encounter (statuses as of 12/30/2022) Resolved Problems Problem Noted Date Resolved Date [...] 02/04/2006 12/21/2008 Atrial septal aneurysm 02/04/2006 [facility] current use 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 0 06/01/2005 [...] as of this encounter (statuses as of 12/30/2022) Immunizations Name Administration Dates Next Due H1N1 [...] Care Team Description 01/04/2023 Laboratory [place] [facility] [place] [facility] Mobile Home Draw [address] [place] [address] 01/04/2023 [facility] [address] [place] [address] 01/13/2023 Procedure Only Endoscopy [facility]ka Santiago MD [facility] [address] 01/26/2023 Telemedicine Urology Juan José Walters MD [address] [address] 03/01/2023 Telemedicine Psychiatry Hugo Alcantara MD [address] [place] [address] 03/11/2023 Office Visit Neurology Hina Lion PA-C [address] [place] [address] 03/16/2023 Office Visit Pulmonary Alisha Carrero CRNP [address] [address] 03/17/2023 PulmDiagnostic Pulmonary Function [place], Pft [address] [address] 07/07/2023 Office Visit Cardiology Jerry Pacheco, DO [address] [address] Health Maintenance Due Date Last Done Comments [...] 02/16/2022 LUNG CANCER SCREENING - USE SMARTSET 60426 Completed 03/16/2022 Influenza Vaccine (FLU shot) Completed [...] as of this encounter Care Teams Medical Sociologist Relationship Specialty Start Date End Date Roger Alexandra MD [address] [address] PCP - General Family Medicine 12/29/19 documented as of this encounter
--- OUTSIDE RECORDS SUMMARY | 2023-07-25 04:22 | External Medical Summary | Summary of Care ---
Author Name Unknown Organization [place] [address] Care Team Providers Care Vocational Evaluator Name Role Phone Roger Alexandra MD Primary Care Provider [phone] Reason for Visit * Reason Onset Date Comments Medication Update 12/28/2022 Encounter Details Date Type Department Care Team Description 12/28/2022 Telephone Pharmacy, [facility] [address] [facility] [place] [address] [facility] [address] [place] [address] Medication Update Allergies Active Allergy Reactions Severity Noted Date Comments Aspirin Unknown 12/12/2007 von Willebrand's disease Salicylates 03/01/2000 von Willebrand's disease documented as of this encounter (statuses as of 12/28/2022) Medications Medication Sig Dispensed Refills Start Date [...] Breath. 540 mL 12 10/23/2022 Active Nystatin 384694 UNIT/GM External Powder (Nyamyc) apply to affected [...] gone.. 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 Please refer to ACC encounterfor warfarin dosing. Thanks, Fabienne TrimbleD Clinical Pharmacist 12/28/2022 3:36 PM * Telephone Encounter - Ericka Smith RPh - 12/28/2022 3:00 PM EST Images from the original note were not included. Received the following BPA for a 10 day course of bactrim. documented in this encounter Plan of Treatment Upcoming Encounters Date Type Specialty Care Team Description 01/07/2023 Laboratory Laboratory Processing [facility] Mobile Home Draw [address] [place] [address] 01/08/2023 [facility] [address] [place] [address] 01/13/2023 Procedure Only Endoscopy Shaneka Santiago MD [address] [place] [address] 01/26/2023 Telemedicine Urology Juan José Walters MD [address] [address] 03/01/2023 Telemedicine Psychiatry Hugo Alcantara MD [address] [place] [address] 03/11/2023 Office Visit Neurology Hina Lion PA-C [address] [place] [address] 03/16/2023 Office Visit Pulmonary Alisha Carrero CRNP [address] [place] [address] 03/17/2023 PulmDiagnostic Pulmonary Function [place], Pft [address] [place] [address] 07/07/2023 Office Visit Cardiology Jerry Pacheco, DO [address] [place] [address] Health Maintenance Due Date Last Done Comments [...] 02/16/2022 LUNG CANCER SCREENING - USE SMARTSET 37399 Completed 03/16/2022 Influenza Vaccine (FLU shot) Completed [...] filedocumented as of this encounter Care Teams Vocational Evaluator Relationship Specialty Start Date End Date Roger Alexandra MD [address] [address] PCP - General Family Medicine 12/29/19 documented as of this encounter
--- OUTSIDE RECORDS SUMMARY | 2023-07-25 04:22 | External Medical Summary | Summary of Care ---
Author Name Unknown Organization [place] [address] Care Team Providers Care Measurement Department Chief Clerk Name Role Phone Roger Alexandra MD Primary Care Provider [phone] Reason for Visit * Reason Onset Date Comments Order Request 12/24/2022 Encounter Details Date Type Department Care Team Description 12/24/2022 Telephone Family Practice [facility] [address] [place] [address] Roger Alexandra MD [address] [place] [place] [address] Order Request Allergies Active Allergy Reactions Severity Noted Date Comments Aspirin Unknown 12/12/2007 von Willebrand's disease Salicylates 03/01/2000 von Willebrand's disease documented as of this encounter (statuses as of 12/25/2022) Medications Medication Sig Dispensed Refills Start Date [...] Breath. 540 mL 12 10/23/2022 Active Nystatin 855562 UNIT/GM External Powder (Nyamyc) apply to affected [...] of legs 30 Tablet 0 12/24/2022 Active documented as of this encounter (statuses as of 12/25/2022) Active Problems Problem Noted Date Decreased functional [...] as of this encounter (statuses as of 12/25/2022) Resolved Problems Problem Noted Date Resolved Date [...] as of this encounter (statuses as of 12/25/2022) Immunizations Name Administration Dates Next Due H1N1 [...] Telephone Encounter - Yara Morris RN - 12/25/2022 9:24 AM EST Spoke with patients granddaughter Laura, as patient was unavailable to speak (currently in the shower) made aware that lasix rx was sent to the pharmacy and after discussing with Dr. Alexandra, patientmay take extra dose today. Instructed to continue to monitor and notify if fluid/weight continues to increase. Verbalizes understanding. * Telephone Encounter - RUFINA Causey - 12/24/2022 11:28 AM EST [facility] Requesting orders for PT 1x week for 1 week, then 2x week for 1 week, and 1x a week for 3 weeks. Pt's weight is 203 on 12/24/2022 which is a 3 lb weight gain from yesterday 12/23/2022 documented in this encounter Plan of Treatment Upcoming Encounters Date Type Specialty Care Team Description 01/08/2023 [facility] [address] [facility] [address] 01/13/2023 Procedure Only Endoscopy Shaneka Santiago MD 132 [facility] [address] [id number] 01/26/2023 Telemedicine Urology Juan José Walters MD [address] [address] 03/01/2023 Telemedicine Psychiatry Hugo Alcantara MD [address] [place] [address] 03/11/2023 Office Visit Neurology Hina Lion PA-C [address] [place] [address] 03/16/2023 Office Visit Pulmonary Alisha Carrero CRNP [address] [place] [address] 03/17/2023 PulmDiagnostic Pulmonary Function [place], [place] [address] [place] [address] 07/07/2023 Office Visit Cardiology Jerry Pacheco DO [address] [address] Health Maintenance Due Date Last Done Comments [...] 02/16/2022 LUNG CANCER SCREENING - USE SMARTSET 56804 Completed 03/16/2022 Influenza Vaccine (FLU shot) Completed [...] filedocumented as of this encounter Care Teams Measurement Department Chief Clerk Relationship Specialty Start Date End Date Roger Alexandra MD [address] [address] PCP - General Family Medicine 12/29/19 documented as of this encounter
--- OUTSIDE RECORDS SUMMARY | 2023-07-25 04:22 | External Medical Summary ---
Author Name Unknown Address Unknown Organization K01:[facility] - [address] [place] [address] [place] [address] Laboratory Report Ordering Provider Test Date Status SUMAN STANFORD 12/24/2022 10:37:00 Final Observation Date Value Abnormality Reference (Units ) Status PT 12/24/2022 10:37:00 37.1 Above high normal 11 .6-15.2 (seconds) Final INR 12/24/2022 10:37:00 3.7 Above high normal 0. 8-1.2 Final Performing Location [facility] - [address] [place] [address]
--- OUTSIDE RECORDS SUMMARY | 2023-07-25 04:22 | External Medical Summary | Summary of Care ---
Author Name Unknown Organization [place] [address] Care Team Providers Care Fish And Wildlife Biologist Name Role Phone Roger Alexandra MD Primary Care Provider +1 -[phone] Reason for Referral * Evaluate & Treat - Unlimited Visits (Within 10 days (routine)) - Authorized Specialty Diagnoses / Procedures Referred By Contlakia t Referred To Contact Urology Diagnoses Dysuria Overactive bladder Roger Alexandra MD [address] [place] [address] Referral ID Status Reason Start Date Expiration Date Visits Requested Visits Authorized [id number] Authorized Specialty Services Required 12/23/2022 999 999 Question Answer Referral Priority Within 10 days (routine) What is the patient being referred for? Urinary Concerns Comments Incontinence and history of uti. Reason for Visit * Reason Onset Date Comments Order Request 12/22/2022 Encounter Details Date Type Department Care Team Description 12/22/2022 Telephone Family Practice [facility] [address] [address] Roger Alexandra MD [address] [place] [...] ([facility]),Chronic hypoxemic respiratory failure (HCC) Use with nebulized meds 1 Each 0 09/16/2022 Active Full Kit Nebulizer SetIndications:COPD, group D, by GOLD 2017 classification ([facility]),Chronic hypoxemic respiratory failure (HCC) Use with nebulizer [...] Breath. 540 mL 12 10/23/2022 Active Nystatin 994736 UNIT/GM External Powder (Nyamyc) apply to affected [...] * Telephone Encounter - RUFINA [place] - 12/23/2022 2:31 PM EST Patient scheduled with Dr. Walters on 01/26/23. * Telephone Encounter - RUFINA Garcia - [...] - 12/23/2022 12:50 PM EST Gracie from [facility] is calling. States that she obtained the [...] RN - 12/22/2022 4:02 PM EST Called [facility] and was asked to fax order as well. Faxed to # [phone] * Telephone Encounter - Roger Alexandra MD - 12/22/2022 1:17 PM EST Signed orders. And yes I would recommend she see the urologist * Telephone Encounter - Yara Morris RN - 12/22/2022 1:[address] Alexandra, orders pended for UA w/micro and culture, if appropriate? (will fax to [facility] to obtain) Also looks like she had seen uro previously, but not since 2013. Would you recommend she re-establish for ongoing urine concerns? Thank you! * Telephone Encounter - Roger Alexandra MD - 12/22/2022 1:01 PM EST Noted. * Telephone Encounter - Mónica Kurtz LPN - 12/22/2022 12:50 PM EST Gracie calling from [facility]. Discharged her 2 weeks ago. Received another [...] Care Team Description 12/24/2022 Laboratory Laboratory Processing [facility] Mobile Home Draw [address] [place] [address] 12/25/2022 [facility] [address] [place] [address] 01/13/2023 Procedure Only Endoscopy Shaneka Santiago MD 132 [facility] [place] [address] 01/26/2023 Telemedicine Urology Juan José Walters MD [address] [address] 02/22/2023 Telemedicine Psychiatry Hugo Alcantara MD [address] [place] [address] 03/11/2023 Office Visit Neurology Hina Lion PA-C 200 [place] [address] 03/16/2023 Office Visit Pulmonary Alisha Carrero CRNP [address] [facility] [place] [address] 03/17/2023 PulmDiagnostic Pulmonary Function [place], Pft 132 [facility] [place] [address] 07/07/2023 Office Visit Cardiology Jerry Pacheco DO 132 [facility] [place] [address] Pending Results Name Type Priority Associated Diagnoses [...] 02/16/2022 LUNG CANCER SCREENING - USE SMARTSET 82674 Completed 03/16/2022 Influenza Vaccine (FLU shot) Completed [...] 1:08 PM EST [facility] [place] [facility]10 Bilirubin, Urine Negative Negative 12/23/2022 1:08 PM EST [facility] [place] [facility]10 Ketone, Urine Negative Negative mg/dL 12/23/2022 1:08 PM EST [facility] [place] 57-10 Specific [place], Urine 1.020 1.003 - 1.030 12/23/2022 1:08 [...] Alexandra MD LAB URINE ORDERAB LES LAB[facility]AT[facility] [place] 57-10 [address] [address] documented in this encounter Visit Diagnoses Diagnosis Dysuria- Primary Overactive bladder Hypertonicity of bladder documented in this encounter Care Teams Fish And Wildlife Biologist Relationship Specialty Start Date End Date Roger Alexandra MD [address] [address] PCP - General Family Medicine 12/29/19 documented as of this encounter
--- OUTSIDE RECORDS SUMMARY | 2023-07-25 04:22 | External Medical Summary | Summary of Care ---
Author Name Unknown Organization [place] [address] Care Team Providers Care Manager Strategy Name Role Phone Roger Alexandra MD Primary Care Provider +1 [phone] Reason for Visit * Reason Onset Date Comments Test Results 12/25/2022 Encounter Details Date Type Department Care Team Description 12/25/2022 Telephone Family Practice [facility] [address] [place] [address] Roger Alexandra MD [address] [place] [address] Test Results Allergies Active Allergy Reactions Severity [...] Breath. 540 mL 12 10/23/2022 Active Nystatin 989899 UNIT/GM External Powder (Nyamyc) apply to affected [...] Encounter - Yara Morris RN - 12/25/2022 4:32 PM EST Portal message sent. * Telephone Encounter - Roger Alexandra MD - 12/25/2022 3:49 PM EST Culture with less than 100,000 colonies which is not an infection. No antibiotics needed. documented in this encounter Plan of Treatment Upcoming Encounters Date Type Specialty Care Team Description 01/07/2023 Laboratory Laboratory [place] [facility] [place] [facility] Mobile Home Draw [address] [place] [address] 01/08/2023 [facility] [address] [place] [address] 01/13/2023 Procedure Only Endoscopy Shaneka Santiago MD [address] [place] [id number] 01/26/2023 Telemedicine Urology Juan José Walters MD [address] [address] 03/01/2023 Telemedicine Psychiatry Hugo Alcantara MD [address] [place] [address] 03/11/2023 Office Visit Neurology Hina Lion PA-C [address] [place] [address] 03/16/2023 Office Visit Pulmonary Alisha Carrero CRNP 132 [facility] [place] [address] 03/17/2023 PulmDiagnostic Pulmonary Function [place], Pft [address] [place] [address] 07/07/2023 Office Visit Cardiology Jerry Pacheco DO 132 [facility] [place] [address] Health Maintenance Due Date Last Done Comments [...] 02/16/2022 LUNG CANCER SCREENING - USE SMARTSET 45143 Completed 03/16/2022 Influenza Vaccine (FLU shot) Completed [...] as of this encounter Care Teams Manager Strategy Relationship Specialty Start Date End Date Roger Alexandra MD [address] [place] [address] PCP - General Family Medicine 12/29/19 documented as of this encounter
--- OUTSIDE RECORDS SUMMARY | 2023-07-25 04:22 | External Medical Summary | Summary of Care ---
Author Name Unknown Organization [place] [address] Care Team Providers Care Director Risk Name Role Phone Roger Alexandra MD Primary Care Provider +1 -[phone] Reason for Visit * Reason Comments Dosage Adjustment Via Phone (anticoag Cl inic) Encounter Details Date Type Department Care Team Description 12/25/2022 Anticoagulation Pharmacy Call Center 58-60 [facility] [place] [address] Telepharmacy, [facility] 58 60 [facility] [place] [address] Anticoagulation management encounter* Allergies Active Allergy Reactions [...] Breath. 540 mL 12 10/23/2022 Active Nystatin 610657 UNIT/GM External Powder (Nyamyc) apply to affected [...] 02/04/2006 12/21/2008 Atrial septal aneurysm 02/04/2006 9 terminologist current use 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 0 06/01/2005 [...] Progress Notes * Kim Juarez, RUFINA - 12/25/2022 8:53 AM EST Contacts Type Contact Phone/Fax 12/25/2022 08:51 AM EST Phone (Outgoing) Kimberly Kendall (Self) [phone] (M) Patient Findings Negatives: Signs/symptoms of thrombosis, [...] as noted by Pharmacist: Yes RUFINA Vela 12/25/2022, 8:53 AM * Kim Mercado RPh - 12/25/2022 8:11 AM EST Images from the original note were not included. Coumadin Clinic (region specific) Current Warfarin Dose As of 12/25/2022 Warfarin maintenance plan: 5 mg (5 mg x 1) every day; Starting 12/25/2022 INR Result As of 12/25/2022 INR goal: 2.0-3.0 INR used for dosin.7 (12/24/2022) Warfarin Plan As of 12/25/2022 Full warfarin instructions: 12/25: Hold; Otherwise 5 mg every day; Starting 12/25/2022 Next INR check: 01/07/2023 Repeat PT/INR in 2 week(s) Weekly dose: not changed Additional Dosing Information: Description GM Also sent MyG after trying to call 01/13/23 [employer] to contact patient with dose instructions as noted. Kim Mercado RPh 12/25/2022, 8:11 AM documented in this encounter Plan of Treatment Upcoming Encounters Date Type Specialty Care Team Description 01/08/2023 [facility] 58 60 [facility] [place] [address] 01/13/2023 Procedure Only Endoscopy Shaneka Santiago MD [address] [address] 01/26/2023 Telemedicine Urology Juan [facility]ters MD 27 [facility] [address] [place] [address] 03/01/2023 Telemedicine Psychiatry Hugo Alcantara MD [address] [place] [facility] [place] [address] 03/11/2023 Office Visit Neurology Hina Lion PA-C 200 [facility], [place] [address] 03/16/2023 Office Visit Pulmonary Alisha Carrero CRNP [address] [facility] [place] [address] 03/17/2023 PulmDiagnostic Pulmonary Function West, Pft [facility] [place] [address] 07/07/2023 Office Visit Cardiology Jerry Pacheco DO 132 [facility] [place] [address] Health Maintenance Due Date Last Done Comments [...] 02/16/2022 LUNG CANCER SCREENING - USE SMARTSET 88253 Completed 03/16/2022 Influenza Vaccine (FLU shot) Completed [...] documented in this encounter Care Teams Director Risk Relationship Specialty Start Date End Date Roger Alexandra MD [facility] [place] [address] PCP - General Family Medicine 12/29/19 documented as of this encounter
--- OUTSIDE RECORDS SUMMARY | 2023-07-25 04:22 | External Medical Summary | Summary of Care ---
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 540 mL 12 10/23/2022 Active Nystatin 199773 UNIT/GM External Powder (Nyamyc) apply to affected [...] of legs 30 Tablet 0 12/24/2022 Active Furosemide 20 MG Oral Tablet (Lasix) Take 1 Tablet by mouth daily as needed. 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 Informed pt that RX is available at their pharmacy. Pt verbalized understanding and stated they will check with their pharmacy regarding this medication. Thank you, Blanche Polk Signal Fitter [facility] 12/25/2022, 10:28 AM * Telephone Encounter - Matt Mathew DO - 12/24/2022 4:08 PM EST Prescription for Lasix refilled as requested. Advise call return to office if symptoms persist or worsen, pulse ox less than 90% * Telephone Encounter - Yara Morris, RN - 12/24/2022 10:29 AM EST Case Management progress note: Patient called in to report her weight is up 3lbs in one day. She is 302 lbs today. Having swellingin L ankle, reports this is where she usually gets swelling. She had previously been on lasix 20mg daily PRN and is asking if she can have this refilled. Taking bumetanide 1mg daily. Dr. Mathew, (Dr. Alexandra out of office today) Would you be agreeable to sending rx for lasix? Should she take more than one for acute swelling today? (she is at her baseline otherwise, has SOB on O2) Home health also checking on her. Thank you Pended as refill, if appropriate? 30 tabs no refill documented in this encounter Plan of Treatment Upcoming Encounters Date Type Specialty Care Team Description 01/08/2023 [facility] [address] [place] [address] 01/13/2023 Procedure Only Endoscopy Shaneka Santiago MD 132 [facility] [address] 01/26/2023 Telemedicine Urology Juan José Walters MD 27 [facility] [address] [place] [address] 03/01/2023 Telemedicine Psychiatry Hugo Alcantara MD [address] [place] [address] 03/11/2023 Office Visit Neurology Hina Lion PA-C [address] [place] [address] 03/16/2023 Office Visit Pulmonary Alisha Carrero CRNP [address] [place] [address] 03/17/2023 PulmDiagnostic Pulmonary Function West, Pft [address] [address] 07/07/2023 Office Visit Cardiology Jerry Pacheco DO [address] [place] [address] Health Maintenance Due Date Last Done Comments [...] 02/16/2022 LUNG CANCER SCREENING - USE SMARTSET 68959 Completed 03/16/2022 Influenza Vaccine (FLU shot) Completed [...] as of this encounter Visit Diagnoses Diagnosis Edema, unspecified type- Primary Chronic diastolic CHF (congestive heart failure) (HCC) Chronic diastolic heart failure documented in this encounter Care Teams Lumber Checker Relationship Specialty Start Date End Date Roger Alexandra MD [address] [place] [address] PCP - General Family Medicine 12/29/19 documented as of this encounter
--- OUTSIDE RECORDS SUMMARY | 2023-07-25 04:22 | External Medical Summary | Summary of Care ---
Author Name Unknown Organization [place] [address] Care Team Providers Care Base Filler Name Role Phone Roger Alexandra MD Primary Care Provider +1 [phone] Reason for Visit * Reason Comments Dosage Adjustment Via Phone (anticoag Cl inic) Encounter Details Date Type Department Care Team Description 12/28/2022 Anticoagulation Pharmacy Call Center 58-60 [facility] [place] [address] [facility]pharmacy, [facility] 58 60 [facility] [place] [address] care home current use 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* Allergies Active [...] Breath. 540 mL 12 10/23/2022 Active Nystatin 734943 UNIT/GM External Powder (Nyamyc) apply to affected [...] this encounter Progress Notes * Dottie Eli, [facility] - 12/28/2022 4:03 PM EST Medication Therapy Disease Management - Anticoagulation Patient: Kimberly Hung Enoch : 1960 Contacts Type Contact Phone/Fax 12/28/2022 04:07 PM EST Phone (Outgoing) Kimberly Kendall (Self) [phone] (M) Left Message MyG sent as well. Current Warfarin Dose As of 12/28/2022 Warfarin maintenance plan: 5 mg (5 mg x 1) every day; Starting 12/28/2022 Patient-Reported Symptoms: Patient Findings Positives: Change in medications (Bactrim DS BID x10 days) INR Result As of 12/28/2022 INR goal: 2.0-3.0 INR used for dosing: No new INR was available at the time of this encounter. Warfarin Plan As of 12/28/2022 Full warfarin instructions: While on Bactrim DS BID x10 days : will try dosing as follows: 5 mg Tues, Thurs, Sun and 2.5 mg all other days. (28.6% dose decrease) 5 mg every day; Starting 12/28/2022 Next INR check: 01/04/23 Additional Dosing Information: Description GML Also sent MyG after trying to call 01/13/23 - colonoscopy Repeat PT/INR in 1 week(s) Weekly dose: not changed (temporary dose decrease due to bactrim) Dottie Eli [facility] Clinical Pharmacist 12/28/2022, 4:03 PM documented in this encounter Plan of Treatment Upcoming Encounters Date Type Specialty Care Team Description 01/04/2023 [facility] 60 [facility] [address] 01/13/2023 Procedure Only Endoscopy Shaneka Santiago MD [address] [place] [address] 01/26/2023 Telemedicine Urology Juan José Walters MD [address] [place] [address] 03/01/2023 Telemedicine Psychiatry Hugo Alcantara MD [address] [place] [address] 03/11/2023 Office Visit Neurology Hina Lion PA-C 200 [place] [address] 03/16/2023 Office Visit Pulmonary Alisha Carrero CRNP [address] [place] [address] 03/17/2023 PulmDiagnostic Pulmonary Function West, Pft [address] [place] [address] 07/07/2023 Office Visit Cardiology Jerry Pacheco DO [address] [place] [address] Health Maintenance Due Date Last Done Comments [...] 02/16/2022 LUNG CANCER SCREENING - USE SMARTSET 96908 Completed 03/16/2022 Influenza Vaccine (FLU shot) Completed [...] as of this encounter Visit Diagnoses Diagnosis manager long term care current use 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- Primary documented in this encounter Care Teams Base Filler Relationship Specialty Start Date End Date Roger Alexandra MD [address] [place] [id number] PCP - General Family Medicine 12/29/19 documented as of this encounter
--- OUTSIDE RECORDS SUMMARY | 2023-07-25 04:22 | External Medical Summary | Summary of Care ---
Author Name Unknown Organization [place] [address] Care Team Providers Care Implementation Project Manager Name Role Phone Roger Alexandra MD Primary Care Provider +1 -[phone] Reason for Visit * Reason Comments Outpatient Testing Encounter Details Date Type Department Care Team Description 12/23/2022 Laboratory Laboratory, [facility] 132 [facility] [place] [address] [facility] 132 [facility] [place] [address] Dysuria Allergies Active Allergy Reactions Severity Noted Date Comments Aspirin Unknown 12/12/2007 von Willebrand's disease Salicylates 03/01/2000 von Willebrand's disease documented as of this encounter (statuses as of 12/24/2022) Medications Medication Sig Dispensed Refills Start Date [...] classification ([facility]),Chronic hypoxemic respiratory failure (HCC) Use [...] Breath. 540 mL 12 10/23/2022 Active Nystatin 901255 UNIT/GM External Powder (Nyamyc) apply to affected [...] Pain, Moderate. 180 Tablet 0 12/22/2022 Active documented as of this encounter (statuses as of 12/24/2022) Active Problems Problem Noted Date Decreased functional [...] as of this encounter (statuses as of 12/24/2022) Resolved Problems Problem Noted Date Resolved Date [...] as of this encounter (statuses as of 12/24/2022) Immunizations Name Administration Dates Next Due H1N1 [...] Encounters Date Type Specialty Care Team Description 12/25/2022 [facility] 58 60 [place] [address] 01/13/2023 Procedure Only Endoscopy Shaneka Santiago MD 132 [place] [address] 01/26/2023 Telemedicine Urology Juan José Walters MD [address] [address] 02/22/2023 Telemedicine Psychiatry Hugo Alcantara MD [address] [place] [address] 03/11/2023 Office Visit Neurology Hina Lion PA-C 200 [place] [address] 03/16/2023 Office Visit Pulmonary Alisha Carrero CRNP [address] [place] [address] 03/17/2023 PulmDiagnostic Pulmonary Function West, Pft [address] [place] [address] 07/07/2023 Office Visit Cardiology Jerry Pacheco DO [address] [place] [address] Pending Results Name Type Priority Associated Diagnoses Date /Time CULTURE, URINE, QUANTITATIVE Lab Routine Dysuria 12/23/2022 12:31 PM EST Health Maintenance Due Date Last Done Comments [...] 02/16/2022 LUNG CANCER SCREENING - USE SMARTSET 84128 Completed 03/16/2022 Influenza Vaccine (FLU shot) Completed [...] Procedure Name Priority Date/Time Associated Diagnosis Comments URINALYSIS WITH MICROSCOPIC EXAM Routine 12/23/2022 12:31 PM EST Dysuria documented in this encounter Results * (ABNORMAL) URINALYSIS WITH [...] PM EST [facility] [place] 57-10 Specific [place], Urine 1.020 1.003 - 1.030 12/23/2022 1:08 [...] MD LAB URINE ORDERAB LES [facility] [place] 57-10 [facility] [place] [address] documented in this encounter Visit Diagnoses Diagnosis Dysuria documented in this encounter Care Teams Implementation Project Manager Relationship Specialty Start Date End Date Roger Alexandra MD [address] [place] [address] PCP - General Family Medicine 12/29/19 documented as of this encounter
--- OUTSIDE RECORDS SUMMARY | 2023-07-25 04:22 | External Medical Summary | Summary of Care ---
Author Name Unknown Organization [place] [address] Care Team Providers Care Graduate Rn Name Role Phone Roger Alexandra MD Primary Care Provider +1 -[phone] Reason for Visit * Reason Comments Dosage Adjustment Via Phone (anticoag Cl inic) Encounter Details Date Type Department Care Team Description 12/25/2022 Anticoagulation Pharmacy Call Center 58-60 [facility] [place] [address] Telepharmacy, [facility] 58 60 [facility] [place] [address] Anticoagulation management encounter* Allergies Active Allergy Reactions [...] D, by GOLD 2017 classification ([facility]),Chronic hypoxemic respiratory failure ([facility]) Use with nebulized meds 1 Each 0 09/16/2022 Active Full Kit Nebulizer SetIndications:COPD, group D, by GOLD 2017 classification ([facility]),Chronic hypoxemic respiratory failure ([facility]) Use with nebulizer 1 Each [...] Breath. 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 Kim Mercado RPh 12/25/2022, 8:11 AM documented in this encounter Plan of Treatment Upcoming Encounters Date Type Specialty Care Team Description 01/08/2023 [facility] 58 60 [facility] [place] [address] 01/13/2023 Procedure Only Endoscopy Shaneka Santiago MD [address] [place] [address] 01/26/2023 Telemedicine Urology Juan [facility]ters MD [facility] [address] [place] [address] 03/01/2023 Telemedicine Psychiatry Hugo Alcantara MD [address] [place] [address] 03/11/2023 Office Visit Neurology Hina Lion PA-C 200 [facility], [place] [address] 03/16/2023 Office Visit Pulmonary Alisha Carrero CRNP [address] [facility] [place] [address] 03/17/2023 PulmDiagnostic Pulmonary Function [place], Pft [facility] [place] [address] 07/07/2023 Office Visit Cardiology Jerry Pacheco DO 132 [facility] [place] [address] Health Maintenance Due Date Last Done Comments [...] 02/16/2022 LUNG CANCER SCREENING - USE SMARTSET 09274 Completed 03/16/2022 Influenza Vaccine (FLU shot) Completed [...] monitoring documented in this encounter Care Teams Graduate Rn Relationship Specialty Start Date End Date Roger Alexandra MD [address] [facility] [place] [address] PCP - General Family Medicine 12/29/19 documented as of this encounter
--- OUTSIDE RECORDS SUMMARY | 2023-07-25 04:22 | External Medical Summary | Summary of Care ---
Author Name Unknown Organization [place] [address] Care Team Providers Care Access Developer Name Role Phone Roger Alexandra MD Primary Care Provider [phone] Reason for Visit * Reason Onset Date Comments Test Results 12/25/2022 Encounter Details Date Type Department Care Team Description 12/25/2022 Telephone Family Practice [facility] [address] [place] [address] Roger Alexandra MD [address] [place] [address] Test Results Allergies Active Allergy Reactions Severity [...] Breath. 540 mL 12 10/23/2022 Active Nystatin 340057 UNIT/GM External Powder (Nyamyc) apply to affected [...] Date Type Specialty Care Team Description 01/08[facility]2023 [facility] [place] [address] [place] [address] 01/13/2023 Procedure Only Endoscopy Shaneka Santiago MD [address] [place] [address] 01/26/2023 Telemedicine Urology Juan José Walters MD [address] [address] 03/01/2023 Telemedicine Psychiatry Hugo Alcantara MD [address] [place] [address] 03/11/2023 Office Visit Neurology Hina Lion PA-C [address] [place] [address] 03/16/2023 Office Visit Pulmonary Alisha Carrero CRNP [address] [facility] [place] [address] 03/17/2023 PulmDiagnostic Pulmonary Function [facility], Pft [address] [place] [address] 07/07/2023 Office Visit Cardiology Jerry Pacheco DO [address] [facility] [place] [address] Health Maintenance Due Date Last Done Comments [...] 02/16/2022 LUNG CANCER SCREENING - USE SMARTSET 54363 Completed 03/16/2022 Influenza Vaccine (FLU shot) Completed [...] filedocumented as of this encounter Care Teams Access Developer Relationship Specialty Start Date End Date Roger Alexandra MD [address] [place] [address] PCP - General Family Medicine 12/29/19 documented as of this encounter
--- OUTSIDE RECORDS SUMMARY | 2023-07-25 04:22 | External Medical Summary | Summary of Care ---
Author Name Unknown Organization [place] [address] Care Team Providers Care Guard Lieutenant Name Role Phone Roger Alexandra MD Primary Care Provider [phone] Encounter Details Date Type Department Care Team Description 12/28/2022 Telephone Pharmacy, [facility] [address] [facility] [place] [id number] [facility] [address] [place] [address] Allergies Active Allergy Reactions Severity Noted Date [...] Breath. 540 mL 12 10/23/2022 Active Nystatin 709720 UNIT/GM External Powder (Nyamyc) apply to affected [...] encounter Miscellaneous Notes * Telephone Encounter - Ericka Smith RPh - 12/28/2022 3:00 PM EST Images from the original note were not included. Received the following BPA for a 10 day course of bactrim. documented in this encounter Plan of Treatment Upcoming Encounters Date Type Specialty Care Team Description 01/07/2023 Laboratory Laboratory Processing [facility], [facility] Mobile Home Draw [address] [place] [address] 01/08/2023 [facility] [address] [place] [address] 01/13/2023 Procedure Only Endoscopy Shaneka Santiago MD [address] [place] [address] 01/26/2023 Telemedicine Urology Juan José Walters MD [address] [address] 03/01/2023 Telemedicine Psychiatry Hugo Alcantara MD [address] [place] [address] 03/11/2023 Office Visit Neurology Hina Lion PA-C [address] [place] [address] 03/16/2023 Office Visit Pulmonary Alisha Carrero CRNP [address] [facility] [place] [address] 03/17/2023 PulmDiagnostic Pulmonary Function [facility] [address] [facility] [place] [address] 07/07/2023 Office Visit Cardiology Jerry Pacheco DO [address] [facility] [place] [address] Health Maintenance Due Date Last Done Comments [...] 02/16/2022 LUNG CANCER SCREENING - USE SMARTSET 56261 Completed 03/16/2022 Influenza Vaccine (FLU shot) Completed [...] filedocumented as of this encounter Care Teams Guard Lieutenant Relationship Specialty Start Date End Date Roger Alexandra MD [address] [address] PCP - General Family Medicine 12/29/19 documented as of this encounter
--- OUTSIDE RECORDS SUMMARY | 2023-07-25 04:23 | External Medical Summary | Summary of Care ---
Author Name Unknown Organization [place] [address] Care Team Providers Care Support Services Rep Name Role Phone Roger Alexandra MD Primary Care Provider [phone] Reason for Referral * Evaluate & Treat - Unlimited Visits (Within 3 days (urgent)) - Authorized Specialty Diagnoses / Procedures Referred By Anna hendrix Referred To Contact HOME CARE / Home Care Diagnoses Decreased functional mobility Dysuria Paroxysmal atrial fibrillation (HCC) Francisco Thapa CRNP [address] [place] [address] Referral ID Status Reason Start Date Expiration Date Visits Requested Visits Authorized [id number] Authorized Specialty Services Required 12/16/2022 999 999 Question Answer Referral Priority Within 3 days (urgent) Comments Documentation of Vevt-id-Ukpy Encounter Addendum Patient Name: Kimberly Kendall I certify that this patient is under my care and that I, or a nurse practitioner or physician's planning assistant working with me, had a nvxj-zq-qjon encounter that meets the physician lpbo-ic-qyux encounter requirements with this patient on: 12/16/22 The encounter with the patient was in whole, or in part, for the following medical condition, which is the primary reason for home health care (List medical condition): ADL dysfunction, INR check on coumadin, frequent UTI requires straight cath I certify that, based on my findings, the following services are medically necessary home health services: Nursing and Physical Therapy To provide the following care/treatments: (All hospitalists not following the patient after discharge should complete this section): Primary Care Physician to follow home care plan of care after discharge: My clinical findings support the need for the above services because: Further, I certify that my clinical findings support that this patient is homebound (i.e. Absences from home require considerable and taxing effort and are for medical reasons or congregation services or infrequently or of short duration when for other reason) because: Physician Signature: Date of Signature: Physician Printed Name: COY Mccabe Reason for Visit * Reason Comments Referral Discuss home health referral and order for a walker Encounter Details Date Type Department Care Team Description 12/16/2022 Telemedicine Family Practice [facility] [address] [facility] [place] [address] Francisco Thapa CRNP 132 [facility] [place] [address] Decreased functional mobility*; COPD, group D, by GOLD 2017 classification (HCC); Super obese; Chronic hypoxemic respiratory failure (HCC); Chronic diastolic CHF (congestive heart failure) (HCC); Chronic bilateral low back pain without sciatica; Dysuria; Paroxysmal atrial fibrillation (HCC) Allergies Active Allergy Reactions Severity Noted Date Comments Aspirin Unknown 12/12/2007 von Willebrand's disease Salicylates 03/01/2000 von Willebrand's disease documented as of this encounter (statuses as of 12/16/2022) Medications Medication Sig Dispensed Refills Start Date End Date Status Warfarin Sodium 5 MG Oral Tablet (Coumadin)Indicatio ns:Paroxysmal atrial fibrillation (HCC) Take by mouth 1 Tablet in the evening. OR As directed by coumadin clinic. 90 Tablet 3 02/16/2022 Active oxygen IN GASIndications:[employer]ling [employer]er 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 respiratory failure (HCC),COPD, group D, by GOLD 2017 classification ([facility]) Use 2 LPM at rest, [...] Active Additional Information Patient not taking.Reported on 12/16/2022 Full Kit Nebulizer SetIndications:COPD , group D, by GOLD 2017 classification ([facility]),Chronic hypoxemic respiratory failure ([facility]) Use with nebulizer 1 Each 0 09/16/2022 Active Additional Information Patient not taking.Reported on 12/16/2022 ProAir HFA 108 (90 Base) MCG/ACT Inhalation [...] for Wheezing. 90 mL 3 09/29/2022 Active Additional Information Patient not taking.Reported on 12/16/2022 Bumetanide 1 MG Oral Tablet Take 1 [...] Active Additional Information Patient not taking.Reported on 12/16/2022 Nystatin 232011 UNIT/GM External Powder (Nyamyc) apply to affected area twice a day 15 g 1 11/18/2022 Active Baclofen 10 MG Oral Tablet (Lioresal)Indicatio ns:Chronic bilateral low back pain without sciatica take 1 tablet by mouth three times a day if needed for muscle spasm 90 Tablet 0 11/24/2022 Active traMADol HCl 50 MG Oral Tablet (Ultram)Indications :Chronic bilateral low back pain without sciatica Take 2 Tablets by mouth every 8 hours as needed for Pain, Moderate. 180 Tablet 0 11/24/2022 Active Vitron-C 65-125 MG [...] at bedtime. 45 Tablet 2 12/16/2022 Active Additional Information Patient not taking.Reported on 12/16/2022 LORazepam 0.5 MG Oral Tablet (Ativan) Take 1 Tablet by mouth every 8 hours as needed for Anxiety. Do not start before December 25, 2022. 90 Tablet 1 12/25/2022 Active busPIRone HCl 10 MG Oral Tablet (Buspar) Take 2 Tablets by mouth in the morning and 2 Tablets before bedtime. 120 Tablet 2 12/16/2022 Active guaiFENesin ER 600 MG Oral Tablet Extended Release 12 Hour (Humibid LA) Take by mouth 600 mg in the morning AND 600 mg before bedtime. 0 3 Discontinu ed(Patient preference /discontin uation) documented as of this encounter (statuses as of 12/16/2022) Active Problems Problem Noted Date Decreased functional [...] as of this encounter (statuses as of 12/16/2022) Resolved Problems Problem Noted Date Resolved Date [...] as of this encounter (statuses as of 12/16/2022) Immunizations Name Administration Dates Next Due H1N1 [...] as of this encounter Progress Notes * COY Mccabe - 12/16/2022 10:47 AM EST Images from the original note were not included. Follow up Family Medicine Visit History of Present Illness Patient location: HOME. I was in a hospital or clinic location. After connecting through televideo,patient was verified with two unique identifiers. Patient (or authorized legal digital media representative) was then informed that this was a Telemedicine visit and being conducted confidentially over secure lines. Methods to assure confidentiality were taken. Patient acknowledged consent and understanding of pr ivacy and security of the Telemedicine visit. The patient agreed to participate. Kimberly Kendall is a pleasant 62 year old female has a significant past medical history of Back disorder, Benign neoplasm of colon (10/06/10), Chronic bilateral low back pain without sciatica (10/14/2020), COPD (chronic obstructive pulmonary disease) ([facility]), COPD, mild (HCC) (04/06/2007), COPD, severe (HCC) (04/06/2007), Decreased functional mobility (08/28/2022), Depressive disorder, not elsewhere classified, Generalized osteoarthritis, History of multiple strokes (10/17/2020), Morbid obesitydue to excess calories ([facility]) (03/05/2020), Narcotic addiction ([facility]) (10/04/2014), Non compliance w medication regimen (10/14/2020), Oxygen dependent (12/29/2019), Paroxysmal atrial fibrillation (HCC) (10/14/2020), Patent foramen ovale, PTSD (post-traumatic stress disorder) (03/05/2021), Schizoaffective disorder, chronic condition ([facility]), Sequelae, post- stroke, Status asthmaticus, and Von Willebrand'sdisease. She has been using home health through [facility]. Home health nurse came to draw blood (INR) and home health exercise. She would like to continue her care with [facility] home health nurse. O2 stable at 90% per patient. Also requesting Rollator walker. She uses walker at baseline, her current rollator walker front andback wheels do not work. She had UTI in October treated with Bactrim. She is also complaining pain in the bladder area and want her urine to be checked. Notes prone to UTI. She states that there is a standing urine order and she needs to be catheterized because of urine incontinence. Social History Socioeconomic History Marital status: Spouse name: Not on file Number of children: 3 Years of education: Not on file Highest education level: Not on file Occupational History Not on file Tobacco Use Smoking status: Former Packs/day: 1.50 Years: 32.00 Pack years: 48.00 Types: Cigarettes Quit date: 2019 Years since quittin.0 Smokeless tobacco: Never Vaping Use Vaping Use: Former Substance and Sexual Activity Alcohol use: No Drug use: No Sexual activity: Yes Partners: Male Other Topics Concern Not on file Social History Narrative 1 cat No mold Social Determinants of Health Financial Resource Strain: Not on file Food Insecurity: Not on file Transportation Needs: Not on file Physical Activity: Not on file Stress: Not on file Social Connections: Not on file Intimate Partner Violence: Not on file Housing Stability: Not on file PMH: Past Medical History: Diagnosis Date Back disorder [...] 03/05/2020 Morbid obesity due to excess calories (HCC) 03/05/2020 Narcotic addiction (HCC) 10/04/2014 Non compliance w medication regimen 10/14/2020 Oxygen dependent 12/29/2019 Paroxysmal atrial fibrillation (HCC) 10/14/2020 Patent foramen ovale PTSD (post-traumatic stress disorder) 03/05/2021 Schizoaffective disorder, chronic condition ([facility]) followed Dr Robby Diego [facility] Sequelae, post-stroke CVA Status asthmaticus Von Willebrand's disease Past Surgical History: Procedure Laterality Date BREAST BIOPSY Left benign--- done in her late s COLONOSCOPY THRU STOMA, W/BIOPSY 10/06/2010 adenomatous/repeat colonoscopy in 1 yr COLONOSCOPY THRU STOMA, W/BIOPSY 05/22/2013 hyperplastic polyp COLONOSCOPY, DIAGNOSTIC (RECTUM) 11/12/2020 large adenomatous polyp, repeat 6 mo / [facility] EGD, FLEXIBLE, DIAGNOSTIC 02/26/2015 retained food/[facility] EGD, FLEXIBLE, DIAGNOSTIC 11/12/2020 Gastric submucosal mass / [facility] EGD, FLEXIBLE, DIAGNOSTIC 11/06/2020 gastritis / [facility] EGD, FLEXIBLE, W/BIOPSY 05/19/2013 EGD, W/ENDOSCOPIC US 11/05/2011 UPPER GI ENDOSCOPY ENDOSCOPIC ULTRASOUND performed by BERENICE ASHBY at [facility]; REPAIR INITIAL INGUINAL HERNIA REMOVE GALLBLADDER TOTAL HYSTERECTOMY and bso Outpatient Medications Marked as Taking for the 12/16/22 encounter (Telemedicine) with COY Mccabe Medication Sig busPIRone HCl 10 MG Oral Tablet (Buspar) Take 2 Tablets by mouth in the morning and 2 Tablets before bedtime. [START ON 12/25/2022] LORazepam 0.5 MG Oral Tablet (Ativan) Take 1 Tablet by mouth every 8 hoursas needed for Anxiety. Do not start before December 25, 2022. Fluticasone-Salmeterol 115-21 MCG/ACT Inhalation Aerosol (Advair Hfa) Inhale 2 Puffs by mouth in the morning and 2 Puffs before bedtime. Vitron-C 65-125 MG Oral Tablet (Iron-Vitamin C 65-125 mg per tab) Take 1 Tablet by mouth in themorning. Baclofen 10 MG Oral Tablet (Lioresal) take 1 tablet by mouth three times a day if needed for muscle spasm traMADol HCl 50 MG Oral Tablet (Ultram) Take 2 Tablets by mouth every 8 hours as needed for Pain, Moderate. Nystatin 973237 UNIT/GM External Powder (Nyamyc) apply to affected area twice a day Omeprazole 20 MG Oral Capsule Delayed Release (PriLOSEC) take 1 capsule by mouth IN THE MORNINGand 1 capsule BEFORE BEDTIME Bumetanide 1 MG Oral Tablet Take 1 Tablet (1 mg) by mouth in the morning. Potassium Chloride ER 10 MEQ Oral Capsule Extended Release Take 1 Capsule (10 mEq) by mouth in the morning and 1 Capsule (10 mEq) before bedtime. ProAir HFA 108 (90 Base) MCG/ACT Inhalation Aerosol Solution Inhale 2 Puffs by mouth in the morning and 2 Puffs at noon and 2 Puffs in the evening and 2 Puffs before bedtime. Disposable Brief X-Large Attends X-Large Super Absorb Underwear Isosorbide Mononitrate ER 30 MG Oral Tablet Extended Release 24 Hour (Imdur) take 1 tablet by mouth daily oxygen IN GAS Use 2 LPM at rest, 4 LPM with exertion and with sleep. (Patient taking differently: Use 4 LPM at rest, 5 LPM with exertion and 4 LPM with sleep.) Warfarin Sodium 5 MG Oral Tablet (Coumadin) Take by mouth 1 Tablet in the evening. OR As directed by coumadin clinic. Current Facility-Administered Medications for the 12/16/22 encounter (Telemedicine) with COY Mccabe Medication [DISCONTINUED] Albuterol Sulfate (Proventil) (2.5 MG/3ML) 0.083% inhalation solution 2.5 mg [DISCONTINUED] Albuterol Sulfate (Proventil) (5 MG/ML) 0.5% *conc* inhalation solution 2.5 mg Review of patient's allergies indicates: Allergen Reactions Aspirin Unknown von Willebrand's disease Salicylates von Willebrand's disease Most Recent Immunizations Administered Date(s) Administered H1N1 2009 Influenza, IM 12/19/2009 Pneumococcal Polysaccharide PPV23 (Pneumovax) 03/20/2009 Seasonal Influenza Virus Vaccine, Unspecified Formulation 11/11/2021 Seasonal Influenza, Quadrivalent, No Preserve, 6 Mons & Above, IM 08/28/2022 Seasonal Influenza, Quadrivalent, No Preserve, IM 08/21/2015 Seasonal Influenza, Split, IIV3, With Preserve, Inj 08/01/2014 TDAP (age 11 and older)(Adacel) 06/27/2008 Review of Systems: Review of Systems Constitutional: Negative for chills and fever. Respiratory: Negative for shortness of breath. Cardiovascular: Negative for chest pain. Genitourinary: Positive for dysuria and pelvic pain. Incontinence Musculoskeletal: Positive for gait problem. Physical Exam There were no vitals taken for this visit. Assessment and Plan 1. Decreased functional mobility Home health nurse w/ [facility] DME order Rollator walker 2. COPD, group D, by GOLD 2017 classification ([facility]) Cont inhalers 3. Super obese 4. Chronic hypoxemic respiratory failure (HCC) On oxygen 5. Chronic diastolic CHF (congestive heart failure) ([facility]) F/u cardiology 6. Chronic bilateral low back pain without sciatica Cont tramadol 7. Dysuria UA w/ straight cath Standing UA order 8. Paroxysmal atrial fibrillation (HCC) On coumadin, follow cardiology - HOME HEALTH REFERRAL OP Wrap-Up I have advised the patient to call our office with any worsening or new symptoms. I spent a total of 20-29 minutes (exact time 28 mins) on the date of service in preparation, delivery, and documentation of the care provided to Kimberly Kendall excluding any time spent in the performance of separately billed services. Francisco Thapa, SIMEON, COY [facility] documented in this encounter Nursing Notes * Héctor Ojeda RN - 12/16/2022 10:24 AM EST Chief Complaint Patient presents with Referral Discuss home health referral and order for a walker documented in this encounter Plan of Treatment Upcoming Encounters Date Type Specialty Care Team Description 12/17/2022 Office Visit Sleep Disorders Mariposa Gay DO [address] [facility] [place] [address] 12/24/[address] [facility], [facility] Mobile Home Draw [address] [place] [address] 12/25/2022 [facility] [address] [place] [address] 01/13/2023 Procedure Only Endoscopy Shaneka Santiago MD [address] [facility] [place] [address] 02/22/2023 Telemedicine Psychiatry Hugo Alcantara MD [address] [place] [address] 03/11/2023 Office Visit Neurology Hina Lion PA-C [address] [place] [address] 03/16/2023 Office Visit Pulmonary Alisha Carrero CRNP [address] [place] [address] 03/17/2023 PulmDiagnostic Pulmonary Function [place], Pft [address] [place] [address] 07/07/2023 Office Visit Cardiology Jerry Pacheco DO [address] [place] [address] Scheduled Referrals Name Type Priority Associated Diagnoses Orde r Schedule HOME HEALTH REFERRAL OP Referral Within 3 days (urgent) Decreased functional mobility Dysuria Paroxysmal atrial fibrillation (HCC) Ordered: 12/16/2022 Health Maintenance Due Date Last Done Comments [...] ASSESSMENT COMPLETED IN PAST YEAR FOR COPD 12/14/2023 12/14/2022 Diabetes Screening 10/23/2025 10/23/2022, 0 01/15/2022, 01/08/2022, Additional history exists COLONOSCOPY-EVERY 5 YRS AGES 18-100 11/12/2025 11/12/2020, 05/22/2013, 08/21/2011, Additional history exists Alpha-1 Antitrypsin Completed 02/16/2022 LUNG CANCER SCREENING - USE SMARTSET 84236 Completed 03/16/2022 Influenza Vaccine (FLU shot) Completed [...] as of this encounter Visit Diagnoses Diagnosis Decreased functional mobility- Primary Other symptoms involving nervous and musculoskeletal systems COPD, group D, by GOLD 2017 classification (HCC) Super obese Morbid obesity Chronic hypoxemic respiratory failure (HCC) Chronic respiratory failure Chronic diastolic CHF (congestive heart failure) (HCC) Chronic diastolic heart failure Chronic bilateral low back pain without sciatica Dysuria Paroxysmal atrial fibrillation (HCC) Atrial fibrillation documented in this encounter Care Teams Support Services Rep Relationship Specialty Start Date End Date Roger Alexandra MD [address] [place] [address] PCP - General Family Medicine 12/29/19 documented as of this encounter
--- OUTSIDE RECORDS SUMMARY | 2023-07-25 04:23 | External Medical Summary | Summary of Care ---
Author Name Unknown Organization [place] [address] Care Team Providers Care Water Project Manager Name Role Phone Roger Alexandra MD Primary Care Provider [phone] Reason for Visit * Reason Onset Date Comments Medication Question 12/18/2022 Encounter Details Date Type Department Care Team Description 12/18/2022 Telephone Family Practice [facility] [address] [address] Roger Alexandra MD [address] [place] [address] Medication Question Allergies Active Allergy Reactions Severity Noted Date Comments Aspirin Unknown 12/12/2007 von Willebrand's disease Salicylates 03/01/2000 von Willebrand's disease documented as of this encounter (statuses as of 12/18/2022) Medications Medication Sig Dispensed Refills Start Date [...] group D, by GOLD 2017 classification ([facility]),Chronic hypoxemic respiratory failure ([facility]) Use with nebulized meds 1 Each 0 09/16/2022 Active Full Kit Nebulizer SetIndications:COPD, group D, by GOLD 2017 classification ([facility]),Chronic hypoxemic respiratory failure ([facility]) Use with nebulizer 1 [...] Breath. 540 mL 12 10/23/2022 Active Nystatin 972971 UNIT/GM External Powder (Nyamyc) apply to affected [...] as of this encounter (statuses as of 12/18/2022) Active Problems Problem Noted Date Decreased functional [...] as of this encounter (statuses as of 12/18/2022) Resolved Problems Problem Noted Date Resolved Date [...] as of this encounter (statuses as of 12/18/2022) Immunizations Name Administration Dates Next Due H1N1 [...] Telephone Encounter - Blanche Polk CPhT - 12/18/2022 10:54 AM EST Pt calling to refill traMADol HCl 50 MG Oral Tablet (Ultram). Advised it is too soon and to call back on 12/22/22 Thank you, Blanche Polk Pasta Maker [facility] 12/18/2022, 10:55 AM documented in this encounter Plan of Treatment Upcoming Encounters Date Type Specialty Care Team Description 12/24/2022 Laboratory Laboratory Processing [facility] [place] [address] [facility] [address] 12/25/2022 [facility] [address] [facility] [place] [address] 01/13/2023 Procedure Only Endoscopy Shaneka Santiago MD [address] [facility] [place] [address] 02/22/2023 Telemedicine Psychiatry Hugo Alcantara MD [address] [place] [address] 03/11/2023 Office Visit Neurology Hina Lion PA-C [address] [place] [address] 03/16/2023 Office Visit Pulmonary Alisha Carrero CRNP 132 [facility] [place] [address] 03/17/2023 PulmDiagnostic Pulmonary Function West, Pft 132 [facility] [address] [place] [address] 07/07/2023 Office Visit Cardiology Jerry Pacheco DO 132 [facility] [address] [place] [address] Health Maintenance Due Date Last Done Comments [...] 02/16/2022 LUNG CANCER SCREENING - USE SMARTSET 31315 Completed 03/16/2022 Influenza Vaccine (FLU shot) Completed [...] filedocumented as of this encounter Care Teams Water Project Manager Relationship Specialty Start Date End Date Roger Alexandra MD [address] [address] PCP - General Family Medicine 12/29/19 documented as of this encounter
--- OUTSIDE RECORDS SUMMARY | 2023-07-25 04:23 | External Medical Summary | Summary of Care ---
Author Name Unknown Organization [place] [address] Care Team Providers Care Hydro Plant Technician Name Role Phone Roger Alexandra MD Primary Care Provider [phone] Reason for Visit * - Authorized Specialty Diagnoses / Procedures Referred By Contac t Referred To Contact Referral ID Status Reason Start Date Expiration Date V isits Requested Visits Authorized [id number] Authorized 10/14/2023 999 999 Encounter Details Date Type Department Care Team Description 12/16/2022 Telemedicine Psychiatry, [address] [address] Hugo Alcantara MD [address] [place] [address] Major neurocognitive disorder, due to vascular disease, without behavioral disturbance, mild*; MDD (major depressive disorder), recurrent severe, 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 1 Each 0 2 Active Isosorbide Mononitrate ER 30 MG Oral Tablet Extended Release 24 Hour (Imdur) take 1 tablet by mouth daily 30 Tablet 5 2 Active guaiFENesin ER 600 MG Oral Tablet Extended Release 12 Hour (Humibid LA) Take by mouth 600 mg in the morning AND 600 mg before bedtime. 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 540 mL 12 2 Active Nystatin 138465 UNIT/GM External Powder ([facility]) apply to affected area twice a day 15 g 1 3 Active Baclofen 10 MG Oral Tablet (Lioresal)Indicati ons:Chronic bilateral low back pain without sciatica take 1 tablet by mouth three times a day if needed for muscle spasm 90 Tablet 0 3 Active traMADol HCl 50 MG Oral Tablet (Ultram)Indication s:Chronic bilateral low back pain without sciatica Take 2 Tablets by mouth every 8 hours as needed for Pain, Moderate. 180 Tablet 0 3 Active Vitron-C 65-125 MG Oral Tablet (Iron-Vitamin C 65-125 mg per tab) Take 1 Tablet by mouth in the morning. 30 Tablet 11 3 Active Fluticasone-Salmet jose martin 115-21 MCG/ACT Inhalation Aerosol [...] before bedtime. 120 Tablet 2 3 Active busPIRone HCl 10 MG Oral Tablet (Buspar) Take 2 Tablets (20 mg) by mouth in the morning and 2 Tablets (20 mg) before bedtime. 120 Tablet 2 2 12/16/19 23 Discontinued(Ref ill) LORazepam 0.5 MG Oral Tablet (Ativan) Take 1 Tablet (0.5 mg) by mouth every 8 hours as needed for Anxiety. 90 Tablet 1 2 12/16/19 23 Discontinued(Ref ill) Mirtazapine 30 MG Oral Tablet (Remeron) Take 1 Tablet by mouth at bedtime. 30 Tablet 2 2 12/16/19 23 Discontinued documented as of this encounter [...] Progress Notes * Hugo Alcantara MD - 12/16/2022 9:00 AM EST After connecting through [email or web address], patient was verified with two unique identifiers. Patient (or authorized legal hospital insurance representative) was then informed that this was a Telemedicine visit and being conducted confidentially over secure lines. Methods to assure confidentiality were taken. Patient acknowledged consent and understanding of privacy and security of the Telemedicine visit. The patient agreed to participate. PSYCHOTHERAPY & MEDICATION MANAGEMENT RETURN VISIT NOTE Psychiatry, Zaheer Gordon Kwame Zaheer Gillis [facility] [address] 08/18/2021 Kimberly Abhilash Kendall CHIEF COMPLAINT: medication management INTERVAL HISTORY: she states she is "down". She states she lays in bed from 4pm until 1am when she falls asleep. She states her mind is constantly racing. We discuss some of the findings from the neuropsychology evaluation. She notes that she is always thinking of "the worst things" including the dementia progressing and forgetting her family. She again requests Ativan to be increased. She becomes frustrated when I explain the risks associated with this. OBJECTIVE DATA: COLUMBIA-SUICIDE SEVERITY RATING SCALE Have you ever wished that you were , or not alive anymore? denies Have you actually had thoughts about killing yourself? denies Have you been thinking about how you might do this? denies Have you had these thoughts and had some intention of acting on them? denies Have you started to work out or worked out the details of how to kill yourself? denies Do you intend to carry out this plan? denies Have you done anything, started to do anything, or prepared to do anything to end your life? denies Low Risk Reviewed crisis plan with patient including suicide hotline, text line or my office number Discussed risk/protective factors and reasons for living ROS EXAM: negative except as noted above No observed or reported side effects to current medications SUBSTANCE ABUSE:Unremarkable RELEVANT PAST PSYCHIATRIC, MEDICAL, FAMILY OR SOCIAL HX: recently elevated INR with associated nosebleed CURRENT MEDS: Current Outpatient Medications Medication Sig Dispense Refill Warfarin Sodium 5 MG Oral Tablet (Coumadin) Take by mouth 1 Tablet in the evening. OR As directed by coumadin clinic. 90 Tablet 3 oxygen IN GAS Use 2 LPM at rest, 4 LPM with exertion and with sleep. 1 Each 0 Isosorbide Mononitrate ER 30 MG Oral Tablet Extended Release 24 Hour (Imdur) take 1 tablet by mouth daily 30 Tablet 5 guaiFENesin ER 600 MG Oral Tablet Extended Release 12 Hour (Humibid LA) Take by mouth 600 mg inthe morning AND 600 mg before bedtime. Disposable Brief X-Large Attends X-Large [...] MG Oral Tablet (Buspar) Take 2 Tablets (20 mg) by mouth in the morning and 2 Tablets (20 mg) before bedtime. 120 Tablet 2 Albuterol Sulfate 0.63 MG/3ML Inhalation Nebulization Solution (Accuneb) Inhale 1 Vial (0.63 mg) via nebulizer every 4 hours as needed for Wheezing or Shortness of Breath. 540 mL 12 LORazepam 0.5 MG Oral Tablet (Ativan) Take 1 Tablet (0.5 mg) by mouth every 8 hours as needed for Anxiety. 90 Tablet 1 Mirtazapine 30 MG Oral Tablet (Remeron) Take 1 Tablet by mouth at bedtime. 30 Tablet 2 Nystatin 945334 UNIT/GM External Powder ([facility] [place]) apply to affected area twice a day 15 g 1 Baclofen 10 MG Oral Tablet (Lioresal) take 1 tablet by mouth three times a day if needed for muscle spasm 90 Tablet 0 traMADol HCl 50 MG Oral Tablet (Ultram) Take 2 Tablets by mouth every 8 hours as needed for Pain, Moderate. 180 Tablet 0 Vitron-C 65-125 MG Oral Tablet (Iron-Vitamin C 65-125 mg per tab) Take 1 Tablet by mouth in themorning. 30 Tablet 11 Fluticasone-Salmeterol 115-21 MCG/ACT Inhalation Aerosol (Advair Hfa) Inhale 2 Puffs by mouth in the morning and 2 Puffs before bedtime. 12 g 12 No current facility-administered medications for this visit. LABS: reviewed per EMR MENTAL STATUS EVALUATION: Appearance: casually dressed and wearing nasal cannula Muscle strength/tone and motor behavior: nml movements visualized on video Gait and Station: not tested Personal Presentation: candid and cooperative. Behavior: cooperative Speech: normal, rate, tone and volume Mood: down Affect: type - dysphoric; range - full [...] fair Judgment: fair FORMULATION: Kimberly Kendall is l70udws old female with presenting symptoms ofdepression, anxiety, [...] Major vascular neurocognitive d/o TREATMENT PLAN: -- increase Remeron to 45mg nightly -- cont Ativan 0.5mg TID; unable to increase further d/t multiple risks -- cont Buspar 20mg BID -- recommend therapy; referral previously placed -- neuropsychology report reviewed; scheduled w neurology February 2023 RTC: 2 months - Crisis planning-- Kimberly [...] Encounters Date Type Specialty Care Team Description 12/16/2022 Telemedicine Family Medicine Francisco Thapa CRNP 132 [facility] [place] [address] 12/17/2022 Office Visit Sleep Disorders Mariposa Gay DO 132 [facility] [place] [address] 12/24/2022 Laboratory Laboratory Processing [facility] [place] Mobile Home Draw [address] [place] [address] 12/25/2022 [facility] [address] [place] [address] 01/13/2023 Procedure Only Endoscopy Shaneka Santiago MD 132 [facility] [place] [address] 02/22/2023 Telemedicine Psychiatry Hugo Alcantara MD [address] [place] [address] 03/11/2023 Office Visit Neurology Hina Lion PA-C 200 [facility] [place] [address] 03/16/2023 Office Visit Pulmonary Alisha Carrero CRNP 132 [facility] [place] [address] 03/17/2023 PulmDiagnostic Pulmonary Function West, Pft 132 [facility] [place] [address] 07/07/2023 Office Visit Cardiology Jerry Pacheco, DO [address] [place] [address] Health Maintenance Due Date Last Done Comments [...] 02/16/2022 LUNG CANCER SCREENING - USE SMARTSET 87566 Completed 03/16/2022 Influenza Vaccine (FLU shot) Completed [...] as of this encounter Visit Diagnoses Diagnosis Major neurocognitive disorder, due to vascular disease, without behavioral disturbance, mild- Primary MDD (major depressive disorder), recurrent severe, 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
--- OUTSIDE RECORDS SUMMARY | 2023-07-25 04:23 | External Medical Summary | Summary of Care ---
Author Name Unknown Organization [place] [address] Care Team Providers Care Score Caller Name Role Phone Jeevan Mclean MD Primary Care Provider [phone] Reason for Referral * Medication Prior Authorization - Pending Review Specialty Diagnoses / Procedures Referred By Contac t Referred To Contact Diagnoses Chronic bilateral low back pain without sciatica Jeevan Mclean MD [address] [place] [address] Referral ID Status Reason Start Date Expiration Date V isits Requested Visits Authorized [id number] Pending Review [phone] Reason for Visit * Reason Onset Date Comments Medication Refill 12/22/2022 Encounter Details Date Type Department Care Team Description 12/22/2022 Refill Family Practice [facility] [address] [address] Jeevan Mclean MD [address] [address] Encounter for long-term (current) use of other medications*; Chronic bilateral low back pain without sciatica Allergies Active Allergy Reactions Severity Noted Date Comments Aspirin Unknown 12/12/2007 von Willebrand's disease Salicylates 03/01/2000 von Willebrand's disease documented as of this encounter (statuses as of 12/22/2022) Medications Medication Sig Dispensed Refills Start Date End Date Status Warfarin Sodium 5 MG Oral Tablet (Coumadin)Indicatio ns:Paroxysmal atrial fibrillation (HCC) Take by mouth 1 Tablet in the evening. OR As directed by coumadin clinic. 90 Tablet 3 02/16/2022 Active oxygen IN GASIndications:Special Effects Technician 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 respiratory failure (HCC),COPD, group [...] OPD, group D, by GOLD 2017 classification ([facility]),Chronic hypoxemic respiratory failure (HCC) Use with nebulized meds 1 Each 0 09/16/2022 Active Full Kit Nebulizer SetIndications:COPD , group D, by GOLD 2017 classification ([facility]),Chronic hypoxemic respiratory failure (HCC) Use [...] Breath. 540 mL 12 10/23/2022 Active Nystatin 621846 UNIT/GM External Powder (Nyamyc) apply to affected [...] Pain, Moderate. 180 Tablet 0 12/22/2022 Active traMADol HCl 50 MG Oral Tablet (Ultram)Indications :Chronic bilateral low back pain without sciatica Take 2 Tablets by mouth every 8 hours as needed for Pain, Moderate. 180 Tablet 0 11/24/2022 3 Discontinu ed(Refill) documented as of this encounter (statuses as of 12/22/2022) Active Problems Problem Noted Date Decreased functional [...] as of this encounter (statuses as of 12/22/2022) Resolved Problems Problem Noted Date Resolved Date [...] as of this encounter (statuses as of 12/22/2022) Immunizations Name Administration Dates Next Due H1N1 [...] Telephone Encounter - Jeevan Mclean MD - 12/22/2022 2:27 PM ESTSigned Prescriptions: Disp Refills traMADol HCl 50 MG Oral Tablet (Ultram) 180 Ta*0 Sig: Take 2 Tablets by mouth every 8 hours as needed for Pain, Moderate. Authorizing Provider: JEEVAN MCLEAN * Telephone Encounter - Alvarez Mueller [facility] - 12/22/2022 2:07 PM ESTPending Prescriptions: Disp Refills traMADol HCl 50 MG Oral Tablet (Ultram) 180 Ta*0 Sig: Take 2 Tablets by mouth every 8 hours as needed for Pain, Moderate. * Telephone Encounter - Alvarez Mueller [facility] - 12/22/2022 2:03 PM EST I have reviewed the patients controlled substance dispensing history in the Prescription Drug Monitoring Program in compliance with the [facility] regulations before prescribing a controlled substance. PDMP checked on 12/22/2022. Pending Prescriptions: Disp Refills traMADol HCl 50 MG Oral Tablet (Ultram) 180 Ta*0 Sig: Take 2 Tablets by mouth every 8 hours as needed for Pain, Moderate. Last Visit: 09/30/2022 (in office), 12/16/2022 (telemedicine) Next Visit: Visit date not found Date medication was last filled: 11/24 Date medication is due for refill: 12/24 [facility]: [facility] #[id number] Is this request for a controlled substance? Yes and Urine Drug Screen Not completed Toxicology results: Results for orders placed or performed in visit on 12/29/19 TOX SCREEN, URINE, W/ CONFIRMATION Result Value Amphetamine NEGATIVE Benzodiazepines NEGATIVE Cannabinoids NEGATIVE Cocaine Metabolite NEGATIVE HYDROCODONE NEGATIVE Morphine / Codeine NEGATIVE METHADONE METABOLITE NEGATIVE OXYCODONE NEGATIVE TOX COMMENT THE ABOVE SCREENING RESULTS ARE PRESUMPTIVE AND CAN ONLY BE USED FOR MEDICAL PURPOSES. POSITIVE RESULTS REFLEX TO CONFIRMATORY TESTING. Cutoff Concentration *Note: Due to a large number of results and/or encounters for the requested time period, some results have not been displayed. A complete set of results can be found in Results Review. Please approve if appropriate. Thanks, Alvarez Mueller, PharmD Clinical Pharmacist [facility] [phone] 12/22/2022 2:03 PM * Telephone Encounter - Blanche Polk [facility] - 12/22/2022 1:47 PM EST Pt said she will be out tomorrow. Did you pend patient's preferred pharmacy and medication before forwarding?yes [facility]acy: [facility] #[id number] Pending Prescriptions: Disp Refills traMADol HCl [...] appointment Last date the medication was ordered: 11/24/22 Is this request for a controlled substance?Yes, What was the last refill date 11/24/22 w/ quantity 180 and dosage 50 mg and Urine Drug Screen Not completed Urine Drug Screen: Results for orders placed or performed in visit on 12/29/19 TOX SCREEN, URINE, W/ CONFIRMATION Result Value Amphetamine NEGATIVE Benzodiazepines NEGATIVE Cannabinoids NEGATIVE Cocaine Metabolite NEGATIVE HYDROCODONE NEGATIVE Morphine / Codeine NEGATIVE METHADONE METABOLITE NEGATIVE OXYCODONE NEGATIVE TOX COMMENT THE ABOVE SCREENING RESULTS ARE PRESUMPTIVE AND CAN ONLY BE USED FOR MEDICAL PURPOSES. POSITIVE RESULTS REFLEX TO CONFIRMATORY TESTING. Cutoff Concentration *Note: Due to a large number of results and/or encounters for the requested time period, some results have not been displayed. A complete set of results can be found in Results Review. Patient Phone Numbers Labs: Lab Results Component [...] Care Team Description 12/24/2022 Laboratory Laboratory Processing [facility] Mobile Home Draw [address] [place] [address] 12/25/2022 [facility] [address] [place] [address] 01/13/2023 Procedure Only Endoscopy Shaneka Santiago MD 132 [place] [address] 02/22/2023 Telemedicine Psychiatry Hugo Alcantara MD [address] [place] [address] 03/11/2023 Office Visit Neurology Hina Lion PA-C [address] [place] [address] 03/16/2023 Office Visit Pulmonary Alisha Carrero CRNP [address] [place] [address] 03/17/2023 PulmDiagnostic Pulmonary Function West, Pft [address] [place] [address] 07/07/2023 Office Visit Cardiology Jerry Pacheco DO [address] [place] [address] Scheduled Orders Name Type Priority Associated Diagnoses Orde r Schedule LIPID PANEL WITH DIRECT LDL IF TG IS HIGH Lab Routine Encounter for long-term (current) use of other medications Expected: 12/22/2022 (Approximate), Expires: 12/22/2023 Health Maintenance Due Date Last Done Comments [...] 02/16/2022 LUNG CANCER SCREENING - USE SMARTSET 10850 Completed 03/16/2022 Influenza Vaccine (FLU shot) Completed [...] this encounter Visit Diagnoses Diagnosis Encounter for long-term (current) use of other medications- Primary Chronic bilateral low back pain without sciatica documented in this encounter Care Teams Score Caller Relationship Specialty Start Date End Date Jeevan Mclean MD [address] [address] PCP - General Family Medicine 12/29/19 documented as of this encounter
--- OUTSIDE RECORDS SUMMARY | 2023-07-25 04:23 | External Medical Summary | Summary of Care ---
Author Name Unknown Organization [place] [address] Care Team Providers Care Compensation Manager Name Role Phone Roger Alexandra MD Primary Care Provider [phone] Reason for Referral * Precert (Within 10 days (routine)) - Authorized Specialty Diagnoses / Procedures Referred By Anna hendrix Referred To Contact Sleep Disorders Diagnoses Obstructive sleep apnea Chronic hypoxemic respiratory failure (HCC) Procedures SLEEP STUDY, W/ CPAP (TREATMENT SETTINGS) Mariposa Gay DO [address] [place] [address] Referral ID Status Reason Start Date Expiration Date V isits Requested Visits Authorized [id number] Authorized 12/17/2022 999 999 * Precert (Within 10 days (routine)) - Authorized Specialty Diagnoses / Procedures Referred By Anna hendrix Referred To Contact Sleep Disorders Diagnoses Obstructive sleep apnea Chronic hypoxemic respiratory failure (HCC) Procedures SLEEP STUDY, W/O CPAP Mariposa Gay DO [address] [place] [address] Referral ID Status Reason Start Date Expiration Date V isits Requested Visits Authorized [id number] Authorized 12/17/2022 999 999 Reason for Visit * Reason Comments Sleep Apnea NEW PATIENT * Evaluate & Treat - Unlimited Visits (Within 10 days (routine)) - Pending Review Specialty Diagnoses / Procedures Referred By Anna t Referred To Contact Sleep Medicine / Sleep Disorders Diagnoses Obstructive sleep apnea Roger Alexandra MD [address] [place] [address] Referral ID Status Reason Start Date Expiration Date Visits Requested Visits Authorized [id number] Pending Review Specialty Services Required 12/03/2022 2 2 Encounter Details Date Type Department Care Team Description 12/17/2022 Office Visit Sleep Disorders Ctr [facility] [address] [place] [id number] Mariposa Gay DO [address] [place] [address] Obstructive sleep apnea*; Chronic hypoxemic respiratory failure (HCC) Allergies Active Allergy Reactions Severity Noted Date Comments Aspirin Unknown 12/12/2007 von Willebrand's disease Salicylates 03/01/2000 von Willebrand's disease documented as of this encounter (statuses as of 12/21/2022) Medications Medication Sig Dispensed Refills Start Date [...] Breath. 540 mL 12 10/23/2022 Active Nystatin 303331 UNIT/GM External Powder (Nyamyc) apply to affected [...] as of this encounter (statuses as of 12/21/2022) Active Problems Problem Noted Date Decreased functional [...] as of this encounter (statuses as of 12/21/2022) Resolved Problems Problem Noted Date Resolved Date [...] as of this encounter (statuses as of 12/21/2022) Immunizations Name Administration Dates Next Due H1N1 [...] Sign Reading Time Taken Comments Blood Pressure 134/80 12/17/2022 10:18 AM EST Pulse 110 12/17/2022 10:18 AM EST Temperature 36.4 C (97.6 F) 12/17/2022 10:[address] Respiratory Rate 16 12/17/2022 10:18 AM EST Oxygen Saturation 92% 12/17/2022 10:18 AM EST Inhaled Oxygen Concentration - - Weight 133.4 kg (294 lb) 12/17/2022 10:18 AM EST Height 158.8 cm (5' 2.5") 12/17/2022 10:18 AM ES T Body Mass Index 52.92 12/17/2022 10:18 AM EST documented in this encounter Patient Instructions * Patient Instructions* Mariposa Gay, - 12/17/2022 11:00 AM EST OBSTRUCTIVE SLEEP APNEA We are concerned that you may have obstructive sleep apnea. Obstructive sleep apnea is when someonehas difficulties with breathing only during sleep. This typically happens without the patient beingaware they are having breathing issues. Obstructive sleep apnea is very common. It can be seen in kids and adults. It can cause symptoms of excessive daytime sleepiness, fatigue, morning headaches, and poor memory and cognition. It can also lead to difficulties at work or school and motor vehicle accidents. If left untreated, it puts people at risk for heart attacks, strokes, and diabetes. We diagnose obstructive sleep apnea (and are often able to determine the best treatment setting) with a sleep study. If you come in for an in lab sleep study, a trained solar maintenance technician will be present at the sleep center to administer and monitor the test. They will be putting sensors on you that monitor your brain waves, breathing, movements, and respiratory effort. They will not be putting in any IV's or using any needles, and none of the sensors should be painful, though they may be annoying or uncomfortable to some patients when they are trying to sleep. You will have a private room withyour own bathroom. Please feel free to bring your own pillow or blanket if you feel this would helpyou sleep more comfortably. They provide these things for you, but we want you to feel as comfortable and relaxed as possible when you are spending the night in the sleep center. [facility] is accredited by the [place] [employer] (AASM). To receive accreditation, a sleep center must meet or exceed all standards for professional quality sleep medicine care as designated by the Academy. More information can be obtained at: SleepEducation.org documented in this encounter Progress Notes * Mariposa Gay DO - 12/17/2022 10:32 AM EST Sleep Medicine Evaluation [address] [address] Consultation was requested by: Dr. Alexandra for: RUFINA and a copy of this report is being sent to the provider electronically. Relevant available records reviewed. HPI: Kimberly Kendall is a(n) 62 year old female presenting for evaluation and management of RUFINA. Accompanied by granddaughter. Prior PSG 06/02/2007: AHI 12.2, SpO2 mor 79%, "severe nocturnal hypoxemia." She is currently using oxygen set at 4-5 during the day, and at 4 L/min overnight. Granddaughter is there with her 8 AM to 4 PM. Patient reports a typical bedtime of 4 PM; she lays in bed to watch TV. She dozes off while watching TV, at varying times. Patient awakens a couple times overnight; she startles awake (like from a nightmare). It takes a while to return to sleep; TV stays on through the night for noise. Patient awakens for the day at 8 AM (granddaughter wakes her up then), feeling still tired. She canbe difficult to awaken. She used to awaken on her own prior to 8 AM. Patient does feel tired during the day. "I just don't have energy." She states she has been diagnosed with dementia; that is affecting mood, feeling depressed. Patient does not take naps. Patient does use caffeine, Pepsi, about 3 16.9-oz bottles per day. The patient reports having ("+" indicates reports, "-" indicates denies): occasional Snoring (daughter sometimes notices snoring when she gets there in the morning). + Choking/gasping awakenings + Mouth breathing - Acid reflux at night + Nocturia. She cannot tell when she needs to urinate (attributed to hx stroke, has incontinence) + Morning headaches - Teeth grinding; she has a top plate but no bottom teeth Restless Legs Syndrome Symptoms: + Pain/discomfort in legs at night, + neuropathy Raises legs in hospital bed. + edema, on fluid pill Parasomnias Symptoms: - Sleepwalking - Dream-enactment. No falling out of bed. Excessive Daytime Sleepiness: [place] Sleepiness Scale 4 Modified F.O.S.Q. 34 N/A Drowsy driving [place] Sleepiness Scale Question 12/17/2022 10:31 AM EST - Filed by Patient What is the chance you will doze off in the following situation? Sitting and reading No chance of dozing Watching TV Slight chance of dozing Sitting inactive in a public place, such as a theater or meeting No chance of dozing As a passenger in a car for an hour without a break No chance of dozing Lying down to rest in the afternoon when circumstances permit Moderate chance of dozing When sitting and talking to someone No chance of dozing When sitting quietly after lunch without alcohol Slight chance of dozing In a car, while stopped for a few minutes in traffic No chance of dozing Score (range: 0 - 24) 4 Functional Outcomes Of Sleep Question 12/17/2022 10:34 AM EST - Filed by Patient Please complete the following questions. Do you have difficulty concentrating because you are sleepy or tired? Yes, moderate Do you have difficulty remembering things because you are sleepy or tired? Yes, a little Do you have difficulty operating a motor vehicle for short distances (less than 100 miles) because you become sleepy? No Do you have difficulty operating a motor vehicle for long distances (more than 100 miles) because you become sleepy? No Do you have difficulty visiting family or friends in their home because you become sleepy or tired?Yes, a little Has your relationship with family, friends, or work colleagues been affected because you are sleepyor tired? Yes, a little Do youhave difficulty watching a movie or video because you become sleepy or tired? No Do you have difficulty being as active as you want to be in the evening because you are tired or sleepy? No Do you have difficulty being as active as you want to be in the morning because you are tired or sleepy? No Has your mood been affected because you are sleepy or tired? Yes, a little Score (range: 10 - 40) 34 PMH: Past Medical History: Diagnosis Date Back disorder Benign neoplasm of colon 10/06/10 adenomatous/repeat colonoscopy in 1 yr Chronic bilateral low back pain without sciatica 10/14/2020 COPD (chronic obstructive pulmonary disease) (HCC) COPD, mild (HCC) 04/06/2007 COPD, severe (HCC) 04/06/2007 Decreased functional mobility 08/28/2022 Depressive disorder, not elsewhere classified Drug-seeking behavior 10/17/2020 Generalized osteoarthritis History of multiple strokes 10/17/2020 History of narcotic addiction ([facility]) 12/19/2021 Hyperplastic colonic polyp Hypothyroidism 04/16/2015 Malaise and fatigue Mixed dyslipidemia Moderate episode of recurrent major depressive disorder (HCC) 03/05/2020 Morbid obesity due to excess calories (HCC) 03/05/2020 Narcotic addiction (HCC) 10/04/2014 Non compliance w medication regimen 10/14/2020 Oxygen dependent 12/29/2019 Paroxysmal atrial fibrillation (HCC) 10/14/2020 Patent foramen ovale PTSD (post-traumatic stress disorder) 03/05/2021 Schizoaffective disorder, chronic condition ([facility]) followed Dr Robby Diego [facility] Sequelae, post-stroke CVA Status asthmaticus Von Willebrand's disease Past Surgical History: Procedure Laterality Date BREAST BIOPSY Left benign--- done in her late COLONOSCOPY THRU STOMA, W/BIOPSY 10/06/2010 adenomatous/repeat colonoscopy in 1 yr COLONOSCOPY THRU STOMA, W/BIOPSY 05/22/2013 hyperplastic polyp COLONOSCOPY, DIAGNOSTIC (RECTUM) 11/12/2020 large adenomatous polyp, repeat 6 mo / [facility] EGD, FLEXIBLE, DIAGNOSTIC 02/26/2015 retained food/[facility] EGD, FLEXIBLE, DIAGNOSTIC 11/12/2020 Gastric submucosal mass / [facility] EGD, FLEXIBLE, DIAGNOSTIC 11/06/2020 gastritis / [facility] EGD, FLEXIBLE, W/BIOPSY 05/19/2013 EGD, W/ENDOSCOPIC US 11/05/2011 UPPER GI ENDOSCOPY ENDOSCOPIC ULTRASOUND performed by BERENICE ASHBY at [facility]; REPAIR INITIAL INGUINAL HERNIA REMOVE GALLBLADDER TOTAL HYSTERECTOMY and bso ALLERGIES: Review of patient's allergies indicates: Allergen Reactions Aspirin Unknown von Willebrand's disease Salicylates von Willebrand's disease MEDS: Outpatient Medications Marked as Taking for the 12/17/22 encounter (Office Visit) with Mariposa Hamilton, DO Medication Sig busPIRone HCl 10 MG Oral Tablet (Buspar) Take 2 Tablets by mouth in the morning and 2 Tablets before bedtime. [START ON 12/25/2022] LORazepam 0.5 MG Oral Tablet (Ativan) Take 1 Tablet by mouth every 8 hoursas needed for Anxiety. Do not start before December 25, 2022. Mirtazapine 30 MG Oral Tablet (Remeron) Take 1.5 Tablets by mouth at bedtime. Fluticasone-Salmeterol 115-21 MCG/ACT Inhalation Aerosol (Advair Hfa) [...] hours as needed for Pain, Moderate. Nystatin 432158 UNIT/GM External Powder (Nyamyc) apply to affected area twice a day [DISCONTINUED] Mirtazapine 30 MG Oral Tablet (Remeron) Take 1 Tablet by mouth at bedtime. [DISCONTINUED] LORazepam 0.5 MG Oral Tablet (Ativan) Take 1 Tablet (0.5 mg) by mouth every 8 hours as needed for Anxiety. Albuterol Sulfate 0.63 MG/3ML Inhalation Nebulization Solution (Accuneb) Inhale 1 Vial (0.63 mg) via nebulizer every 4 hours as needed for Wheezing or Shortness of Breath. [DISCONTINUED] busPIRone HCl 10 MG Oral Tablet (Buspar) Take 2 Tablets (20 mg) by mouth in the morning and 2 Tablets (20 mg) before bedtime. Omeprazole 20 MG Oral Capsule Delayed Release (PriLOSEC) take 1 capsule by mouth IN THE MORNINGand 1 capsule BEFORE BEDTIME Bumetanide 1 MG Oral Tablet Take 1 Tablet (1 mg) by mouth in the morning. Potassium Chloride ER 10 MEQ Oral Capsule Extended Release Take 1 Capsule (10 mEq) by mouth in the morning and 1 Capsule (10 mEq) before bedtime. Ipratropium-Albuterol 0.5-2.5 (3) MG/3ML Inhalation Solution (Duoneb) Inhale 3 mL by mouth every 6 hours as needed for Wheezing. ProAir HFA 108 (90 Base) MCG/ACT Inhalation Aerosol Solution Inhale 2 Puffs by mouth in the morning and 2 Puffs at noon and 2 Puffs in the evening and 2 Puffs before bedtime. Full Kit Nebulizer Set Use with nebulizer Nebulizer Device Use with nebulized meds Disposable Brief X-Large Attends X-Large Super Absorb Underwear [DISCONTINUED] guaiFENesin ER 600 MG Oral Tablet Extended Release 12 Hour (Humibid LA) Take by mouth 600 mg in the morning AND 600 mg before bedtime. Isosorbide Mononitrate ER 30 MG Oral Tablet [...] evening. OR As directed by coumadin clinic. Social hx: Tobacco Use: Medium Risk Smoking Tobacco Use: Former Smokeless Tobacco Use: Never Passive Exposure: Not on file Alcohol use: none Drug use: none PE: VITAL SIGNS: Filed Vitals: 12/17/22 1018 BP: 134/80 Pulse: 110 Resp: 16 Temp: 36.4 C (97.6 F) TempSrc: Tympanic SpO2: 92% Weight: 133.4 kg (294 lb) Height: 1.588 m (5' 2.5") Body mass index is 52.92 kg/m. GEN: Ambulatory, obese, NAD, wearing oxygen via nasal cannula, seated in wheelchair ORAL: Upper plate Oral mucous membranes moist OP: Soft palate normal [place] IV NECK: Circumference enlarged 17" RESP: Diffuse wheezing CVS: Regular rate and rhythm EXT: + BLE edema NEURO: Seated in wheelchair Speech clear and appropriate IMPRESSION/RECOMMENDATIONS: Hx mild RUFINA, currently untreated Snoring, fatigue Hx cardiomyopathy, CHF, COPD, chronic hypoxemic respiratory failure on oxygen ATC, CVA - STOP-BANG 5 (snoring, tired, BMI > 35, age > 50 and large neck circumference) - Discussed the pathophysiology, implications on short- and long-term health, diagnostic evaluation, and likely treatment of RUFINA - Schedule an overnight PSG - split night protocol if meets criteria. In-lab study recommended due to COPD, CHF, continuous oxygen use - Avoid driving when sleepy/drowsy (she does not drive). Follow-up: Return will send MyG with PSG results. | Check-out note: PSG [facility] Mariposa Gay DO documented in this encounter Nursing Notes * Mali Benz LPN - 12/17/2022 10:21 AM EST Chief Complaint Patient presents with Sleep Apnea NEW PATIENT PSG: approx 20 yrs ago No Cpap Neck: 17" documented in this encounter Plan of Treatment Upcoming Encounters Date Type Specialty Care Team Description 12/24/2022 Laboratory Laboratory Processing [facility] Mobile Home Draw [address] [place] [address] 12/25/2022 [facility] [address] [place] [address] 01/13/2023 Procedure Only Endoscopy Shaneka Santiago MD [address] [facility] [place] [address] 02/22/2023 Telemedicine Psychiatry Hugo Alcantara MD [address] [place] [address] 03/11/2023 Office Visit Neurology Hina Lion PA-C [address] [facility] [place] [address] 03/16/2023 Office Visit Pulmonary Alisha Carrero CRNP [address] [facility] [place] [address] 03/17/2023 PulmDiagnostic Pulmonary Function [place], [facility] [address] [facility] [place] [address] 07/07/2023 Office Visit Cardiology Jerry Pacheco DO [address] [facility] [place] [address] Scheduled Orders Name Type Priority Associated Diagnoses Orde r Schedule SLEEP STUDY, W/O CPAP Procedures Routine Obstructive sleep apnea Chronic hypoxemic respiratory failure (HCC) Ordered: 12/17/2022 SLEEP STUDY, W/ CPAP (TREATMENT SETTINGS) Procedures Routine Obstructive sleep apnea Chronic hypoxemic respiratory failure (HCC) Ordered: 12/17/2022 Health Maintenance Due Date Last Done Comments [...] 02/16/2022 LUNG CANCER SCREENING - USE SMARTSET [id number] Completed 03/16/2022 Influenza Vaccine (FLU shot) Completed [...] as of this encounter Visit Diagnoses Diagnosis Obstructive sleep apnea- Primary Obstructive sleep apnea (adult) (pediatric) Chronic hypoxemic respiratory failure (HCC) Chronic respiratory failure documented in this encounter Care Teams Compensation Manager Relationship Specialty Start Date End Date Roger Alexandra MD [address] [place] [address] PCP - General Family Medicine 12/29/19 documented as of this encounter
--- OUTSIDE RECORDS SUMMARY | 2023-07-25 04:23 | External Medical Summary | Summary of Care ---
Author Name Unknown Organization [place] [address] Care Team Providers Care Animal Biologist Name Role Phone Roger Alexandra MD Primary Care Provider [phone] Reason for Visit * Reason Onset Date Comments Order Request 12/17/2022 Encounter Details Date Type Department Care Team Description 12/17/[address] [facility] [address] [facility] [place] [id number] Yara Morris, EMELY Order Request Allergies Active Allergy Reactions Severity Noted Date Comments Aspirin Unknown 12/12/2007 von Willebrand's disease Salicylates 03/01/2000 von Willebrand's disease documented as of this encounter (statuses as of 12/17/2022) Medications Medication Sig Dispensed Refills Start Date [...] D, by GOLD 2017 classification ([facility]),Chronic hypoxemic respiratory failure ([facility]) Use with nebulized meds 1 Each 0 09/16/2022 Active Full Kit Nebulizer SetIndications:COPD, group D, by GOLD 2017 classification ([facility]),Chronic hypoxemic respiratory failure ([facility]) Use with nebulizer 1 Each [...] Breath. 540 mL 12 10/23/2022 Active Nystatin 205237 UNIT/GM External Powder (Nyamyc) apply to affected [...] as of this encounter (statuses as of 12/17/2022) Active Problems Problem Noted Date Decreased functional [...] as of this encounter (statuses as of 12/17/2022) Resolved Problems Problem Noted Date Resolved Date [...] as of this encounter (statuses as of 12/17/2022) Immunizations Name Administration Dates Next Due H1N1 [...] Telephone Encounter - Yara Morris RN - 12/17/2022 2:37 PM EST Spoke with [facility], if a pt is <300 lbs they can fill for a standard Rolator walker. Will fax order to them at #[phone] * Telephone Encounter - RUFINA Vernon - 12/17/2022 12:10 PM EST Mirtha from [facility] called to say that there rollator walkers have a weight limit of 250 lbs. They do not get the bariatric ones.she just wanted to make clinic aware. RUFINA Vernon * Telephone Encounter - Yara Morris RN - 12/17/2022 11:18 AM EST Referral placed for home health and rollator walker. Contacted [facility], faxed referral to #[phone] Faxed OV notes and rollator walker order to [facility]. documented in this encounter Plan of Treatment Upcoming Encounters Date Type Specialty Care Team Description 12/24/2022 Laboratory Laboratory Processing [facility], [facility] Mobile Home Draw [address] [place] [address] 12/25/2022 [facility] [address] [place] [address] 01/13/2023 Procedure Only [facility]oscopy [facility] [address] [facility] [id number] 02/22/2023 Telemedicine Psychiatry Hugo Alcantara MD [address] [place] [address] 03/11/2023 Office Visit Neurology Hina Lion PA-C [address] [place] [address] 03/16/2023 Office Visit Pulmonary Alisha Carrero CRNP [address] [facility] [place] [address] 03/17/2023 PulmDiagnostic Pulmonary Function [place] [place] [address] 07/07/2023 Office Visit Cardiology [facility]co DO [facility] [place] [address] Health Maintenance Due Date [...] 02/16/2022 LUNG CANCER SCREENING - USE SMARTSET [id number] Completed 03/16/2022 Influenza Vaccine (FLU shot) Completed [...] filedocumented as of this encounter Care Teams Animal Biologist Relationship Specialty Start Date End Date Roger Alexandra MD [address] [place] [address] PCP - General Family Medicine 12/29/19 documented as of this encounter
--- OUTSIDE RECORDS SUMMARY | 2023-07-25 04:23 | External Medical Summary ---
Author Name Unknown Address Unknown Organization [facility] [address] [place] [address] Laboratory Report Ordering Provider Test Date Status VINAY CHEW 12/23/2022 12:31:30 Final Observation Date Value Abnormality Reference (Units ) Status Color of Urine by Auto 12/23/2022 12:31:30 Yellow Light Yellow, Yellow, Dark Yellow Final Clarity, Urine 12/23/2022 12:31:30 Clear Clear Final Glucose [Mass/volume] in Urine by Automated test strip 12/23/2022 12:31:30 Negative Negative (mg/dL) Final Bilirubin.total [Presence] in Urine by Automated test strip 12/23/2022 12:31:30 Negative Negative Final Ketones [Mass/volume] in Urine by Automated test strip 12/23/2022 12:31:30 Negative Negative (mg/dL) Final Specific gravity, Urine 12/23/2022 12:31:30 1.020 1.003-1.030 Final Hemoglobin [Presence] in Urine by Automated test strip 12/23/2022 12:31:30 Negative Negative Final pH, Urine 12/23/2022 12:31:30 5.5 5.0-7.5 (Units) Final Protein [Mass/volume] in Urine by Automated test strip 12/23/2022 12:31:30 Negative Negative (mg/dL) Final Urobilinogen [Mass/volume] in Urine by Automated test strip 12/23/2022 12:31:30 0.2 0.2, 1.0 (mg/dL) Final Nitrite [Presence] in Urine by Automated test strip 12/23/2022 12:31:30 Negative Negative Final Leukocyte esterase [Presence] in Urine by Automated test strip 12/23/2022 12:31:30 Trace Abnormal Negative Final RBC, Urine 12/23/2022 12:31:30 0-2 0-2 (/HPF) Final WBC, Urine 12/23/2022 12:31:30 0-2 0-2 (/HPF) Final Bacteria [#/area] in Urine sediment by Microscopy high power field 12/23/2022 12:31:30 0-25 0-25 (/HPF) Final Hyaline casts, Urine 12/23/2022 12:31:30 5-9 Abnormal None (/LPF) Final Performing Location [facility] [address] [place] [address]
--- OUTSIDE RECORDS SUMMARY | 2023-07-25 04:23 | External Medical Summary | Summary of Care ---
Author Name Unknown Organization [place] [address] Care Team Providers Care Digital Archivist Name Role Phone Roger Alexandra MD Primary Care Provider [phone] [phone] Reason for Referral * Evaluate & Treat - Unlimited Visits (Within 10 days (routine)) - Authorized Specialty Diagnoses / Procedures Referred By Contlakia t Referred To Contact Urology Diagnoses Dysuria Overactive bladder Roger Alexandra MD [address] [place] [place] [address] Referral ID Status Reason Start Date Expiration Date Visits Requested Visits Authorized [id number] Authorized Specialty Services Required 12/23/2022 999 999 Question Answer Referral Priority Within 10 days (routine) What is the patient being referred for? Urinary Concerns Comments Incontinence and history of uti. Reason for Visit * Reason Onset Date Comments Order Request 12/22/2022 Encounter Details Date Type Department Care Team Description 12/22/2022 Telephone Family Practice [facility] [address] [address] Roger Alexandra MD [address] [place] [...] GOLD 2017 classification ([facility]) Use 2 LPM at rest, 4 [...] [facility]),Chronic hypoxemic respiratory failure (HCC) Use with nebulized meds 1 Each 0 09/16/2022 Active Full Kit Nebulizer SetIndications:COPD, group D, by GOLD 2017 classification ([facility]),Chronic hypoxemic respiratory failure (HCC) Use [...] Breath. 540 mL 12 10/23/2022 Active Nystatin 704829 UNIT/GM External Powder (Nyamyc) apply to affected [...] - 12/23/2022 12:50 PM EST Gracie from [facility] is calling. States that she [...] RN - 12/22/2022 4:02 PM EST Called [facility] and was asked to fax order as well. Faxed to # [phone] * Telephone Encounter - Roger Alexandra MD - 12/22/2022 1:17 PM EST Signed orders. And yes I would recommend she see the urologist * Telephone Encounter - Yara Morris RN - 12/22/2022 1:[address] Alexandra, orders pended for UA w/micro and culture, if appropriate? (will fax to [facility] to obtain) Also looks like she had seen uro previously, but not since 2013. Would you recommend she re-establish for ongoing urine concerns? Thank you! * Telephone Encounter - Roger Alexandra MD - 12/22/2022 1:01 PM EST Noted. * Telephone Encounter - Mónica Kurtz LPN - 12/22/2022 12:50 PM EST Gracie calling from [facility]. Discharged her 2 weeks ago. Received another [...] Care Team Description 12/24/2022 Laboratory Laboratory [place] [facility] [place] [facility] [address] [facility] [address] 12/25/2022 [facility] [address] [place] [address] 01/13/2023 Procedure Only Endoscopy Shaneka Santiago MD 132 [place] [address] 02/22/2023 Telemedicine Psychiatry Hugo Alcantara MD [address] [place] [address] 03/11/2023 Office Visit Neurology Hina Lion PA-C [address] [place] [facility] [address] 03/16/2023 Office Visit Pulmonary Alisha Carrero CRNP [address] [place] [address] 03/17/2023 PulmDiagnostic Pulmonary Function [place], Pft [address] [facility] [place] [address] 07/07/2023 Office Visit Cardiology Jerry Pacheco DO [address] [facility] [place] [address] Pending Results Name Type Priority Associated Diagnoses [...] 02/16/2022 LUNG CANCER SCREENING - USE SMARTSET 21476 Completed 03/16/2022 Influenza Vaccine (FLU shot) Completed [...] PM EST LAB[facility]ATORY [place] 57-10 Specific [place], Urine 1.020 1.003 - 1.030 12/23/2022 1:08 [...] MD LAB URINE ORDERAB LES [facility] 57-10 [address] [facility] [place] [address] documented in this encounter Visit Diagnoses Diagnosis Dysuria- Primary Overactive bladder Hypertonicity of bladder documented in this encounter Care Teams Digital Archivist Relationship Specialty Start Date End Date Roger Alexandra MD [address] [address] PCP - General Family Medicine 12/29/19 documented as of this encounter
--- OUTSIDE RECORDS SUMMARY | 2023-07-25 04:23 | External Medical Summary | Summary of Care ---
Author Name Unknown Organization [place] [address] Care Team Providers Care Spray Ii Painter Name Role Phone Roger Alexandra MD Primary Care Provider [phone] [phone] Reason for Visit * Reason Comments Dosage Adjustment Via Phone (anticoag Cl inic) Encounter Details Date Type Department Care Team Description 12/10/2022 Anticoagulation Pharmacy Call Center [address] [facility] [place] [address] Telepharmacy, [facility] [address] [facility] [place] [address] Anticoagulation management encounter* Allergies Active Allergy Reactions Severity Noted Date Comments Aspirin Unknown 12/12/2007 von Willebrand's disease Salicylates 03/01/2000 von Willebrand's disease documented as of this encounter (statuses as of 12/10/2022) Medications Medication Sig Dispensed Refills Start Date [...] with sleep. 1 Each 0 2022 Active Isosorbide Mononitrate ER 30 MG Oral Tablet Extended Release 24 Hour (Imdur) take 1 tablet by mouth daily 30 Tablet 5 07/28/2022 Active guaiFENesin ER 600 MG Oral Tablet Extended Release 12 Hour (Humibid LA) Take by mouth 600 mg in the morning AND 600 mg before bedtime. 0 Active Disposable Brief X-LargeIndications:O veractive bladder Attends X-Large Super Absorb Underwear 32 Each 2 09/08/2022 Active Fluticasone-Salmeter ol 115-21 MCG/ACT Inhalation Aerosol Inhale by mouth 2 Puffs in the morning AND 2 Puffs before bedtime. 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:CO PD, group D, by [...] Active Additional Information Patient not taking.Reported on 12/08/2022 Bumetanide 1 MG Oral Tablet Take 1 [...] BEFORE BEDTIME 60 Capsule 5 10/05/2022 Active busPIRone HCl 10 MG Oral Tablet (Buspar) Take 2 Tablets (20 mg) by mouth in the morning and 2 Tablets (20 mg) before bedtime. 120 Tablet 2 10/21/2022 Active Albuterol Sulfate 0.63 MG/3ML Inhalation Nebulization Solution (Accuneb) Inhale 1 Vial (0.63 mg) via nebulizer every 4 hours as needed for Wheezing or Shortness of Breath. 540 mL 12 10/23/2022 Active Additional Information Patient not taking.Reported on 12/08/2022 LORazepam 0.5 MG Oral Tablet (Ativan) Take 1 Tablet (0.5 mg) by mouth every 8 hours as needed for Anxiety. 90 Tablet 1 10/27/2022 Active Mirtazapine 30 MG Oral Tablet (Remeron) Take 1 Tablet by mouth at bedtime. 30 Tablet 2 11/06/2022 Active Nystatin 961858 UNIT/GM External Powder (Nyamyc) apply to affected [...] the morning. 30 Tablet 11 12/09/2022 Active Hospital, Clinic, or Other Facility Administered Medication Ordered Dose Route Frequency Start Date End Date Status Albuterol Sulfate (Proventil) (2.5 MG/3ML) 0.083% inhalation solution 2.5 mgIndications:Chronic hypoxemic respiratory failure (HCC),COPD, group D, by GOLD 2017 classification ([facility]) 2.5 mg NEBULIZER PRN 03/10/2022 03/10/2023 Acti ve Albuterol Sulfate (Proventil) (5 MG/ML) 0.5% *conc* inhalation solution 2.5 mgIndications:Chronic hypoxemic respiratory failure (HCC),COPD, group D, by GOLD 2017 classification ([facility]) 2.5 mg NEBULIZER PRN 03/10/2022 03/10/2023 Acti ve documented as of this encounter (statuses as of 12/10/2022) Active Problems Problem Noted Date Decreased functional [...] as of this encounter (statuses as of 12/10/2022) Resolved Problems Problem Noted Date Resolved Date [...] 02/04/2006 12/21/2008 Atrial septal aneurysm 02/04/2006 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 Coumadin Clinic (region specific) Current Warfarin Dose As of 12/10/2022 Warfarin maintenance plan: 5 mg (5 mg x 1) every day; Starting 12/10/2022 INR Result As of 12/10/2022 INR goal: 2.0-3.0 INR used for dosin.5 (12/10/2022) Warfarin Plan As of 12/10/2022 Full warfarin instructions: 12/10: 10 mg; Otherwise 5 mg every day; Starting 12/10/2022 Next INR check: 12/24/2022 Repeat PT/INR in 2 week(s) Weekly dose: not changed Additional Dosing Information: Description [facility] Also sent MyG after trying to call 01/13/23 - [employer] to contact patient with dose instructions as noted. Kim Mercado RPh 12/10/2022, 2:15 PM documented in this encounter Plan of Treatment Upcoming Encounters Date Type Specialty Care Team Description 12/14/2022 Office Visit Pulmonary Alisha Carrero CRNP [address] [facility] [place] [address] 12/16/2022 Telemedicine Psychiatry Hugo Alcantara MD [address] [place] [address] 12/17/2022 Office Visit Sleep Disorders Mariposa Gay DO [address] [facility] [place] [address] 12/25/2022 [facility] [address] [facility] [address] 01/13/2023 Procedure Only Endoscopy Shaneka Santiago MD [address] [facility] [place] [address] 03/11/2023 Office Visit Neurology Hina Lion PA-C [address] [facility], [place] [address] 03/17/2023 PulmDiagnostic Pulmonary Function [place], Pft [address] [place] [address] 07/07/2023 Office Visit Cardiology Jerry Pacheco, [address] [facility] [place] [address] Health Maintenance Due Date Last Done Comments [...] ASSESSMENT COMPLETED IN PAST YEAR FOR COPD 09/30/2023 09/30/2022 Diabetes Screening 10/23/2025 10/23/2022, 0 01/15/2022, 01/08/2022, Additional history exists COLONOSCOPY-EVERY 5 YRS AGES 18-100 11/12/2025 11/12/2020, 05/22/2013, 08/21/2011, Additional history exists Alpha-1 Antitrypsin Completed 02/16/2022 LUNG CANCER SCREENING - USE SMARTSET 45323 Completed 03/16/2022 Influenza Vaccine (FLU shot) Completed [...] monitoring documented in this encounter Care Teams Spray Ii Painter Relationship Specialty Start Date End Date Roger Alexandra MD [address] [address] PCP - General Family Medicine 12/29/19 documented as of this encounter
--- OUTSIDE RECORDS SUMMARY | 2023-07-25 04:23 | External Medical Summary | Summary of Care ---
Author Name Unknown Organization [place] [address] Care Team Providers Care Raised Printer Name Role Phone Roger Alexandra MD Primary Care Provider [phone] [phone] Reason for Visit * Reason Comments Outpatient Testing Encounter Details Date Type Department Care Team Description 12/23/2022 Laboratory Laboratory, [facility] [address] [facility] [place] [address] [facility] [address] [facility] [place] [address] Dysuria Allergies Active Allergy [...] ([facility]),Chronic hypoxemic respiratory failure (HCC) Use with nebulizer [...] Breath. 540 mL 12 10/23/2022 Active Nystatin 936874 UNIT/GM External Powder (Nyamyc) apply to affected [...] Care Team Description 12/24/2022 Laboratory Laboratory Processing [facility] Mobile Home Draw [address] [place] [address] 12/25/2022 [facility] [address] [place] [address] 01/13/2023 Procedure Only Endoscopy Shaneka Santiago MD [address] [place] [address] 02/22/2023 Telemedicine Psychiatry Hugo Alcantara MD [address] [place] [address] 03/11/2023 Office Visit Neurology Hina Lion PA-C [address] [place] [address] 03/16/2023 Office Visit Pulmonary Alisha Carrero CRNP [address] [place] [address] 03/17/2023 PulmDiagnostic Pulmonary Function [place], Pft [address] [place] [address] 07/07/2023 Office Visit Cardiology Jerry Pacheco DO [address] [place] [address] Pending Results Name Type Priority Associated Diagnoses Date /Time URINALYSIS WITH MICROSCOPIC EXAM Lab Routine Dysuria 12/23/2022 12:31 PM EST CULTURE, URINE, QUANTITATIVE Lab Routine Dysuria 12/23/2022 [...] 02/16/2022 LUNG CANCER SCREENING - USE SMARTSET [address]58[address] Completed 03/16/2022 Influenza Vaccine (FLU shot) Completed [...] as of this encounter Visit Diagnoses Diagnosis Dysuria documented in this encounter Care Teams Raised Printer Relationship Specialty Start Date End Date Roger Alexandra MD [address] [address] PCP - General Family Medicine 12/29/19 documented as of this encounter
--- OUTSIDE RECORDS SUMMARY | 2023-07-25 04:23 | External Medical Summary ---
Author Name Unknown Address Unknown Organization K01:[facility] [address] [address] Laboratory Report Ordering Provider Test Date Status VINAY CHEW 12/23/2022 12:31:30 Final Observation Date Value Abnormality Reference (Units ) Status Bacteria identified in Unspecified specimen by Culture 12/23/2022 12:31:30 [id number]^ESCHE RICHIA COLI Abnormal Final Performing Location [facility] - [address] [place] [address] Ordering Provider Test Date Status VINAY CHEW 12/23/2022 12:31:30 Final Observation Date Value Abnormality Reference (Units ) Status Ampicillin 12/23/2022 12:31:30 <=2 Susceptible Final Cefazolin 12/23/2022 12:31:30 <=4 Susceptible Final Cefepime susceptibility 12/23/2022 12:31:30 <=1 Susceptible Final Ceftriaxone suceptibility 12/23/2022 12:31:30 <=1 Susceptible Final Ciprofloxacin 12/23/2022 12:31:30 <=0.25 Susceptible Final Performing Location LABORATORY [facility] - [address] [facility] [address]
--- OUTSIDE RECORDS SUMMARY | 2023-07-25 04:23 | External Medical Summary | Summary of Care ---
Author Name Unknown Organization [place] [address] Care Team Providers Care Account Support Associate Name Role Phone Roger Alexandra MD Primary Care Provider [phone] Reason for Visit * Reason Onset Date Comments Order Request 12/17/2022 Encounter Details Date Type Department Care Team Description 12/17/2022 Telephone Family Practice [facility] [address] [facility] [place] [id number] Yara Hernandez, EMELY Order Request Allergies Active Allergy Reactions [...] PD, group D, by GOLD 2017 classification ([facility]),Chronic hypoxemic respiratory failure ([facility]) Use with nebulized meds 1 Each 0 09/16/2022 Active Full Kit Nebulizer SetIndications:COPD, group D, by GOLD 2017 classification ([facility] [...] Breath. 540 mL 12 10/23/2022 Active Nystatin 909088 UNIT/GM External Powder (Nyamyc) apply to affected [...] Miscellaneous Notes * Telephone Encounter - RUFINA Ramírez - 12/18/2022 10:37 AM EST Vi is calling from [facility] Home Care. * Addendum Note - Yara Hernandez RN - 12/18/2022 9:41 AM ESTAddended by: YARA HERNANDEZ on: 12/18/2022 09:41 AM Modules accepted: Orders * Telephone Encounter - Yara Hernandez RN - 12/18/2022 9:22 AM EST Re faxed order, per Romy at [facility], order must state bariatric even though patient <300 lbs. * Telephone Encounter - Yara Hernandez RN - 12/17/2022 2:37 PM EST Spoke with [facility], if a pt is <300 lbs they can fill for a standard Rolator walker. Will fax order to them at #[phone] * Telephone Encounter - RUFINA Vrenon - 12/17/2022 12:10 PM EST Mirtha from [facility] called to say that there rollator walkers have a weight limit of 250 lbs. They do not get the bariatric ones.she just wanted to make clinic aware. RUFINA Vernon * Telephone Encounter - Yara Hernandez RN - 12/17/2022 11:18 AM EST Referral placed for home health and rollator walker. Contacted [facility], faxed referral to #[phone] Faxed OV notes and rollator walker order to [facility]. documented in this encounter Plan of Treatment Upcoming Encounters Date Type Specialty Care Team Description 12/24/2022 Laboratory Laboratory Processing [facility], [facility] Mobile Home Draw [address] [place] [address] 12/25/2022 [facility] [address] [place] [address] 01/13/2023 Procedure Only Endoscopy Shaneka Santiago MD [address] [facility] [place] [address] 02/22/2023 Telemedicine Psychiatry Hugo Alcantara MD [address] [place] [address] 03/11/2023 Office Visit Neurology Hina Lion PA-C [address] [facility] [place], [place] [address] 03/16/2023 Office Visit Pulmonary Alisha Carrero CRNP [address] [place] [address] 03/17/2023 PulmDiagnostic Pulmonary Function [place], Pft [address] [address] 07/07/2023 Office Visit Cardiology Jerry Pacheco DO [address] [place] [address] Health Maintenance Due Date Last Done Comments [...] 02/16/2022 LUNG CANCER SCREENING - USE SMARTSET 16897 Completed 03/16/2022 Influenza Vaccine (FLU shot) Completed [...] Other symptoms involving nervous and musculoskeletal systems documented in this encounter Care Teams Account Support Associate Relationship Specialty Start Date End Date Roger Alexandra MD [address] [place] [address] PCP - General Family Medicine 12/29/19 documented as of this encounter
--- OUTSIDE RECORDS SUMMARY | 2023-07-25 04:23 | External Medical Summary | Summary of Care ---
Author Name Unknown Organization [place] [address] Care Team Providers Care Resource Management Specialist Name Role Phone Roger Alexandra MD Primary Care Provider [phone] Reason for Visit * Reason Onset Date Comments Order Request 12/17/2022 Encounter Details Date Type Department Care Team Description 12/17/2022 Telephone Family Practice [facility] [address] [facility] [place] [phone] Yara Hernandez, EMELY Order Request Allergies Active [...] PD, group D, by GOLD 2017 classification ([facility]),Chronic hypoxemic respiratory failure ([facility]) Use with nebulized meds 1 Each 0 09/16/2022 Active Full Kit Nebulizer SetIndications:COPD, group D, by GOLD 2017 classification ([facility]),Chronic hypoxemic respiratory failure ([facility]) Use with nebulizer 1 Each 0 [...] Breath. 540 mL 12 10/23/2022 Active Nystatin 490886 UNIT/GM External Powder (Nyamyc) apply to affected [...] EST Re faxed order, per Romy at [facility], order must state bariatric even though patient <300 lbs. * Telephone Encounter - Yara Hernandez RN - 12/17/2022 2:37 PM EST Spoke with [facility] [place] patient, if a pt is <300 lbs they can fill for a standard Rolator walker. Will fax order to them at #[phone] * Telephone Encounter - RUFINA Vernon - 12/17/2022 12:10 PM EST Mirtha from [facility] called to say that there rollator walkers have a weight limit of 250 lbs. They do not get the bariatric ones.she just wanted to make clinic aware. RUFINA Vernon * Telephone Encounter - Yara Hernandez RN - 12/17/2022 11:18 AM EST Referral placed for home health and rollator walker. Contacted [facility], faxed referral to #[phone] Faxed OV notes and rollator walker order to [facility]. documented in this encounter Plan of Treatment Upcoming Encounters Date Type Specialty Care Team Description 12/24/2022 Laboratory Laboratory Processing [facility] Home Draw [address] [place] [address] 12/25/2022 [facility] [address] [place] [address] 01/13/2023 Procedure Only Endoscopy Shaneka Santiago MD [address] [place] [address] 02/22/2023 Telemedicine Psychiatry Hugo Alcantara MD [address] [place] [address] 03/11/2023 Office Visit Neurology Hina Lion PA-C [address] [place] [address] 03/16/2023 Office Visit Pulmonary Alisha Carrero CRNP 132 [place] [address] 03/17/2023 PulmDiagnostic Pulmonary Function [place], Pft [address] [place] [address] 07/07/2023 Office Visit Cardiology Jerry Pacheco, [address] [place] [address] Health Maintenance Due Date Last Done Comments [...] 02/16/2022 LUNG CANCER SCREENING - USE SMARTSET 44046 Completed 03/16/2022 Influenza Vaccine (FLU shot) Completed [...] systems documented in this encounter Care Teams Resource Management Specialist Relationship Specialty Start Date End Date Roger Alexandra MD [address] [facility] [place] [address] PCP - General Family Medicine 12/29/19 documented as of this encounter
--- OUTSIDE RECORDS SUMMARY | 2023-07-25 04:23 | External Medical Summary | Summary of Care ---
Author Name Unknown Organization [place] [address] Care Team Providers Care Sports Information Director Name Role Phone Roger Alexandra MD Primary Care Provider [phone] Reason for Visit * Reason Onset Date Comments Encounter Created in Error 12/23/2022 Encounter Details Date Type Department Care Team Description 12/23/2022 Telephone Family Practice [facility] [address] [place] [address] Roger Alexandra MD [address] [facility] [place] [address] Encounter Created in Error Allergies Active Allergy Reactions Severity Noted Date [...] Breath. 540 mL 12 10/23/2022 Active Nystatin 910681 UNIT/GM External Powder (Nyamyc) apply to affected [...] Care Team Description 12/24/2022 Laboratory Laboratory Processing [facility] Mobile Home Draw [address] [place] [address] 12/25/2022 [facility] [address] [place] [address] 01/13/2023 Procedure Only Endoscopy Shaneka Santiago MD [address] [place] [address] 02/22/2023 Telemedicine Psychiatry Hugo Alcantara MD [address] [place], [place] [address] 03/11/2023 Office Visit Neurology Hina Lion PA-C [address] [place] [address] 03/16/2023 Office Visit Pulmonary Alisha Carrero CRNP [address] [place] [address] 03/17/2023 PulmDiagnostic Pulmonary Function [place], Pft [address] [place] [address] 07/07/2023 Office Visit Cardiology Jerry Pacheco DO [address] [place] [address] Health Maintenance Due Date Last Done Comments [...] 02/16/2022 LUNG CANCER SCREENING - USE SMARTSET 00225 Completed 03/16/2022 Influenza Vaccine (FLU shot) Completed [...] filedocumented as of this encounter Care Teams Sports Information Director Relationship Specialty Start Date End Date Roger Alexandra MD [address] [place] [address] PCP - General Family Medicine 12/29/19 documented as of this encounter
--- OUTSIDE RECORDS SUMMARY | 2023-07-25 04:23 | External Medical Summary | Summary of Care ---
Author Name Unknown Organization [place] [address] Care Team Providers Care Account Assistant Name Role Phone Roger Alexandra MD Primary Care Provider [phone] Reason for Visit * Reason Onset Date Comments Medication Refill 12/10/2022 Encounter Details Date Type Department Care Team Description 12/10/2022 Refill Family Practice [facility] [address] [place] [address] Roger Alexandra MD [address] [facility] [place] [address] Allergies Active Allergy Reactions Severity Noted Date [...] bedtime. 30 Tablet 2 11/06/2022 Active Nystatin 381134 UNIT/GM External Powder (Nyamyc) apply to affected [...] [facility]) 2.5 mg NEBULIZER PRN 03/10/2022 03/10/2023 Acti ve Albuterol Sulfate (Proventil) (5 MG/ML) 0.5% *conc* inhalation solution 2.5 mgIndications:Chronic hypoxemic respiratory failure (HCC),COPD, group D, by GOLD 2017 classification ([facility]) 2.5 mg NEBULIZER PRN 03/10/2022 03/10/2023 [...] encounter Miscellaneous Notes * Telephone Encounter - Elsa Solo LPN - 12/10/2022 11:42 AM EST Duplicate Script sent in 11/18/22 documented in this encounter Plan of Treatment Upcoming Encounters Date Type Specialty Care Team Description 12/10/2022 Home Visit Family Medicine Fawn Godfrey, Community [facility] Business Process Manager [address] [place] [address] 12/11/2022 [facility] [address] [place] [address] 12/14/2022 Office Visit Pulmonary Alisha Carrero CRNP [address] [facility] [place] [address] 12/16/2022 Telemedicine Psychiatry Hugo Alcantara MD [address] [place] [address] 01/13/2023 Procedure Only Endoscopy Shaneka Santiago MD [address] [place] [address] 03/11/2023 Office Visit Neurology Hina Lion PA-C [address] [place] [address] 03/17/2023 PulmDiagnostic Pulmonary Function [place], [facility] [address] [address] 07/07/2023 Office Visit Cardiology Jerry Pacheco DO [address] [place] [address] Health Maintenance Due Date Last Done Comments [...] 02/16/2022 LUNG CANCER SCREENING - USE SMARTSET [id number] Completed 03/16/2022 Influenza Vaccine (FLU shot) Completed [...] filedocumented as of this encounter Care Teams Account Assistant Relationship Specialty Start Date End Date Roger Alexandra MD [address] [address] [address] PCP - General Family Medicine 12/29/19 documented as of this encounter
--- OUTSIDE RECORDS SUMMARY | 2023-07-25 04:23 | External Medical Summary | Summary of Care ---
Author Name Unknown Organization [place] [address] Care Team Providers Care Cost Clerk Name Role Phone Roger Alexandra MD Primary Care Provider [phone] Reason for Visit * Reason Comments Follow Up COPD Encounter Details Date Type Department Care Team Description 12/14/2022 Office Visit Pulmonary Medicine, [facility] [address] [place] [address] Alisha Carrero CRNP [address] [facility] [place] [address] Chronic hypoxemic respiratory failure (HCC)*; COPD, group B, by GOLD 2017 classification (HCC); SOB (shortness of breath); Physical deconditioning; Obstructive sleep apnea; History of tobacco abuse; Chronic diastolic CHF (congestive heart failure) ([facility]); Tachycardia; Morbid obesity due to excess calories (HCC) Allergies Active Allergy Reactions Severity Noted Date Comments Aspirin Unknown 12/12/2007 von Willebrand's disease Salicylates 03/01/2000 von Willebrand's disease documented as of this encounter (statuses as of 12/15/2022) Medications Medication Sig Dispensed Refills Start Date End Date Status Warfarin Sodium 5 MG Oral Tablet (Coumadin)Indication s:Paroxysmal atrial fibrillation (HCC) Take by mouth 1 Tablet in the evening. OR As directed by coumadin clinic. 90 Tablet 3 02/16/2022 Active oxygen IN GASIndications:Chron ic hypoxemic respiratory failure (HCC),COPD, group D, by GOLD 2017 classification ([facility]) Use 2 LPM at rest, 4 [...] of Breath. 540 mL 12 10/23/2022 Active LORazepam 0.5 MG Oral Tablet (Ativan) Take 1 Tablet (0.5 mg) by mouth every 8 hours as needed for Anxiety. 90 Tablet 1 10/27/2022 Active Mirtazapine 30 MG Oral Tablet (Remeron) Take 1 Tablet by mouth at bedtime. 30 Tablet 2 11/06/2022 Active Nystatin 461696 UNIT/GM External Powder (Nyamyc) apply to affected [...] before bedtime. 12 g 12 12/15/2022 Active Fluticasone-Salmeter ol 115-21 MCG/ACT Inhalation Aerosol Inhale by mouth 2 Puffs in the morning AND 2 Puffs before bedtime. 12 g 12 09/16/2022 3 Discontinue d(Refill) Hospital, Clinic, or Other Facility Administered Medication [...] as of this encounter (statuses as of 12/15/2022) Active Problems Problem Noted Date Decreased functional [...] as of this encounter (statuses as of 12/15/2022) Resolved Problems Problem Noted Date Resolved Date [...] as of this encounter (statuses as of 12/15/2022) Immunizations Name Administration Dates Next Due H1N1 [...] Sign Reading Time Taken Comments Blood Pressure 134/64 12/14/2022 1:03 PM EST Pulse 116 12/14/2022 1:03 PM EST Temperature 35.9 C (96.7 F) 12/14/2022 1:03 PM ES T Respiratory Rate 16 12/14/2022 1:03 PM EST Oxygen Saturation 91% 12/14/2022 1:03 PM EST Inhaled Oxygen Concentration - - Weight 133.4 kg (294 lb) 12/14/2022 1:03 PM EST Height 158.8 cm (5' 2.5") 12/14/2022 1:03 PM EST Body Mass Index 52.92 12/14/2022 1:03 PM EST documented in this encounter Progress Notes * COY Plata - 12/14/2022 12:57 PM EST [facility] PULMONARY PROGRESS NOTE Kimberly Kendall is a(n) 62 year old female presents for chronic respiratory failure with hypoxia, COPD, chronic diastolic congestive heart failure, obesity, paroxysmal atrial fibrillation, obstructive sleep apnea refuses CPAP, history of COVID-19, history of tobacco use. Other significant PMH history of CVA (on chronic coumadin), acquired hypothyroidism, RUFINA (non compliant with CPAP), cardiomyopathy, p. Atrial fibrillation, CHF, IBS, chronic lower back pain without sciatica, Von willebranddisease, history of narcotic addiction, depression with anxiety, history of multiple strokes, PTSD,decreased functional mobility. Seen 05/2022, by Dr. Bonilla. [place] stable. 88% on RA. Poor sleep. Tried to do nox ox and it fell off several times and she didn't replace. chronic dry cough. Wheezes some days. On Trelegy and albuterol. To be on 2 L with rest and 4 L with exertion 08/2022: Patient was to have a follow-up visit but was found to be hypoxic upon arrival and tachypneic. Advised to go to the emergency department. Last seen by Dr. Bonilla 09/2022: She was admitted at [facility] for COPD exacerbation in August. Back to her baseline mainly sedentary. Using 4 L with rest and sleep and 5 L with inogen on exertion. Discharge with prednisone taper. Had a GI referral placed due to global sensation of dysphagia. Requested pulmonary stress test. Discontinue Trelegy as she did not tolerate it. Switch to AdvairHFA a 115 in advised use DuoNebs 4 times a day. HPI: Today, reports the last few days she is having a lot of chest discomfort. Occasionally pain. Not painful to touch. Denies any changing in activity to cause this. Feeling lightheaded. Wearing 4 L currently with inogen (breath initiated). Wears continuous at home. Wearing 5 LPM per grandaughter, who is with her today. Does not check heroxygen levels at home, but does have pulse ox. Emotional at today's visit, tearful. She confirms coughs She confirms sputum -- not sure what it looks like She confirms wheezes-- thinks daily She uses a walker at home, but currently in wheelchair. Sometime doesn't use oxygen at home with ambulation, as the concentrator is too heavy. DME is [employer] She confirms night time cough and choking episodes Tested for RUFINA in the past. Intolerant of CPAP. She is to see Sleep Medicine this week for re-evaluation She denies hemoptysis She confrims shortness of breath. Occurs mild exertion She has had 1 ER visits/hospitalization and 1 courses of prednisone related to their breathing in the past year She is a former smoker, 2pdd from age 13 until 59. Quit 2018. She confirms hx of pneumonia Current inhalers are advair 115 (not using, reports she didn't like it), prn albuterol (once in morning). Intolerant of dry powder in trelegy She denies history of hay fever/seasonal allergies. Occasional nose-- has nasal saline She confirms acid reflux. Taking PPI daily Weight is currently 294 lbs (stable), some minor fluctuations. On butedamine 1 mg daily -- trace edema today She does not have her covid vaccine, up to date on influenza vaccine Patient Active Problem List Diagnosis Code Irritable [...] Z86.73 Chronic diastolic CHF (congestive heart failure) ([facility]) I50.32 PTSD (post-traumatic stress disorder) F43.10 COPD, group D, by GOLD 2017 classification ([facility]) J44.9 Chronic hypoxemic respiratory failure ([facility]) J96.11 History of narcotic addiction ([facility]) F11.21 Decreased functional mobility R26.89 Past Medical History: Diagnosis Date Back disorder Benign neoplasm of colon 10/06/10 adenomatous/repeat colonoscopy in 1 yr Chronic bilateral low back pain without sciatica 10/14/2020 COPD (chronic obstructive pulmonary disease) ([facility]) COPD, mild ([facility]) 04/06/2007 COPD, severe ([facility]) 04/06/2007 Decreased functional mobility 08/28/2022 Depressive disorder, not elsewhere classified Drug-seeking behavior 10/17/2020 Generalized osteoarthritis History of multiple strokes 10/17/2020 History of narcotic addiction ([facility]) 12/19/2021 Hyperplastic colonic polyp Hypothyroidism 04/16/2015 Malaise and fatigue Mixed dyslipidemia Moderate episode of recurrent major depressive disorder ([facility]) 03/05/2020 Morbid obesity due to excess calories ([facility]) 03/05/2020 Narcotic addiction ([facility]) 10/04/2014 Non compliance w medication regimen 10/14/2020 Oxygen dependent 12/29/2019 Paroxysmal atrial fibrillation ([facility]) 10/14/2020 Patent foramen ovale PTSD (post-traumatic stress disorder) 03/05/2021 Schizoaffective disorder, chronic condition ([facility]) followed Dr Robby Diego [facility] Sequelae, post-stroke CVA Status asthmaticus Von [...] ULTRASOUND performed by BERENICE ASHBY at [facility]; REPAIR INITIAL INGUINAL HERNIA REMOVE GALLBLADDER TOTAL HYSTERECTOMY and bso Allergies: Aspirin and Salicylates Current Outpatient Medications Medication Sig Dispense Refill [...] X-Large Super Absorb Underwear 32 Each 2 Fluticasone-Salmeterol 115-21 MCG/ACT Inhalation Aerosol Inhale by mouth 2 Puffs in the morningAND 2 Puffs before bedtime. (Patient not taking: Reported on 12/08/2022) 12 g 12 Nebulizer Device Use with nebulized meds 1 [...] every 6 hours as needed for Wheezing. (Patient not taking: Reported on 12/08/2022) 90 mL 3 Bumetanide 1 MG Oral [...] needed for Wheezing or Shortness of Breath. (Patient not taking: Reported on 12/08/2022) 540 mL 12 LORazepam 0.5 MG Oral Tablet (Ativan) Take 1 Tablet (0.5 mg) by mouth every 8 hours as needed for Anxiety. 90 Tablet 1 Mirtazapine 30 MG Oral Tablet (Remeron) Take 1 Tablet by mouth at bedtime. 30 Tablet 2 Nystatin [id number] UNIT/GM External Powder (Nyamyc) apply to affected [...] by mouth in themorning. 30 Tablet 11 Current Facility-Administered Medications Medication Dose Route Frequency Provider Last Rate Last Admin Albuterol Sulfate (Proventil) (2.5 MG/3ML) 0.083% inhalation solution 2.5 mg 2.5 mg Nebulizer PRN Jesus Bonilla MD Albuterol Sulfate (Proventil) (5 MG/ML) 0.5% *conc* inhalation solution 2.5 mg 2.5 mg NebulizerPRN Jesus Bonilla MD 2.5 mg at 05/07/22 1507 Social/occupational/living/family history: Home environment: Lives by self,1 cat, no recent renovations. Granddaughter often helps her. Work environment: n/a Exercise: none Alcohol: none Illicit Drugs: none SYSTEMS REVIEW: REVIEW OF SYSTEMS Review of Systems Constitutional: Negative for chills and fever. HENT: Positive for congestion and nosebleeds. Negative for postnasal drip and rhinorrhea. Cardiovascular: Positive for chest pain, palpitations and leg swelling (baseline ). Gastrointestinal: Negative for abdominal pain. Neurological: Positive for dizziness and headaches. Negative for syncope. Hematological: Negative for adenopathy. DATA Pulmonary Stress Test: Performed on 03/2022. Patient was 86% on room air at rest. On 2 L at rest patient was 90%. With exertion patient dropped to 85%. Patient turned to 3 L nasal cannula with low SpO2 88% with exertion. Patient turned up to 4 L. Low- dose SpO2 on 4 L with exertion was 89%. Patient should use 2 L nasal cannula rest 4 L with exertion Pulmonary Function Test Results: Performed on 04/2022: BMI 53. Flow loops obstructive. Spirometry is normal by ATS. There is no significant bronchodilator response. DLCO uncorrected for hemoglobin is mildly reduced. The finding of isolated reduced diffusing capacity can be seen with anemia, pulmonary vascular disease (such as pulmonary hypertension or pulmonary embolism), cardiac disease, or early or mixed obstructive/restrictive lung disease Chest CT scan: Performed on 03/2022: FINDINGS: Lungs: Unremarkable. No consolidation. No masses. Pleural spaces: Unremarkable. No pneumothorax. No pleural effusion. Heart: Mild coronary artery calcifications. Lymph nodes: Unremarkable. No enlarged lymph nodes. Vasculature: Unremarkable. No aortic aneurysm. Gallbladder and bile ducts: Status post cholecystectomy. Bones/joints: Unremarkable. No acute fracture. Soft tissues: Unremarkable. IMPRESSION IMPRESSION: No acute cardiopulmonary disease. Echocardiogram: Performed 11/2022: Interpretation Summary The examination is limited quality but adequate for evaluation of the referral indication. Sinus tachycardia with rate in the range of 100-106 beats per minute present during the echocardiogram. The qualitative LV ejection fraction is >70% (hyperdynamic). The left ventricular diastolic function is mildly abnormal (grade I). Performed on 10/2020: The qualitative LV ejection fraction is 55-59% (normal). The left ventricular diastolic function is mildly abnormal (grade I). No significant valvular disease is present. Moderate right to left intracardiac shunt at rest visualized with injection of agitated saline contrast. Findings suggest patent foramen ovale. Echocardiogram report amended to include interpretation of agitated saline contrast injection. Compared to prior study dated March 14, 2014, there is no significant change. Patent foramen ovale documented on prior echocardiogram July 04, 2012. Mmrc Cat Question 12/14/2022 1:02 PM EST - Filed by Mali Benz LPN When do you become breathless? (4) I [...] when walking up a hill or steps? (0) - When I walk up a hill or one flight of stairs I am not breathless How limited are you doing activities at home? (5) - I am very limited doing activities at home How confident are you leaving home with your lung condition? (5) - I am not at all confident leaving my home because of my lung condition How soundly do you sleep? (5) - I don't sleep soundly because of my lung condition How much energy do you have? (5) - I have no energy at all Total MMRC Score (range: 0 - 4) 4 Total CAT Score (range: 0 - 40) 33 PHYSICAL EXAM: BP 134/64 | Pulse 116 | Temp 35.9 C (96.7 F) (Tympanic) | Resp 16 | Ht 1.588 m (5' 2.5") | Wt 133.4 kg (294 lb) | SpO2 91% | BMI 52.92 kg/m | BSA 2.43 m Physical Exam Constitutional: General: She is not in acute distress. Appearance: She is obese. She is not ill-appearing. Neck: Thyroid: No thyromegaly. Cardiovascular: Rate and Rhythm: Normal rate and regular rhythm. Pulmonary: Effort: Pulmonary effort is normal. No tachypnea or respiratory distress. Breath sounds: Decreased breath sounds (throughout ) present. No wheezing or rhonchi. Chest: Chest wall: No tenderness. Musculoskeletal: Cervical back: Normal range of motion. Right lower leg: No tenderness. Edema (trace, non pitting ) present. Left lower leg: No tenderness. Edema (trace, non pitting ) present. Lymphadenopathy: Cervical: No cervical adenopathy. Skin: General: Skin is warm and dry. Capillary Refill: Capillary refill takes less than 2 seconds. Neurological: Mental Status: She is alert and oriented to person, place, and time. Psychiatric: Mood and Affect: Mood is anxious. Comments: Tearful Assessment/ Recommendations and Plans: 1. Chronic respiratory failure with hypoxia a. Discussed need to wear oxygen with all ambulation b. Patient should use 2 L nasal cannula rest 4 L with exertion -- granddaughter noting it is sometimes increased to 5 L. She does not check oxygen levels. Discussed that increasing oxygen may not be any more beneficial for her. She is to maintain oxygen saturations at 90-94% . Refusing walk test due to physical deconditioning/ pain c. Would recommend humidification added onto oxygen at home due to nose bleeds d. Suggest case management to be more involved again, as she has used them before 2. COPD, group B a. Previously listed on patient's chart, although PFTs without obstructive index b. Restart advair inhaler and continue prn albuterol -- update PFTs after consistent use, and if stable, consider decrease in therapy 3. Shortness of breath a. Suspect multifactorial-- tobacco use vs obesity vs physical deconditioning vs heart failure 4. History of tobacco use a. Placed [facility]SCP referral-- next scan to be March 2023 b. > 50 pack years 5. Physical deconditioning 6. RUFINA a. Upcoming sleep medicine visit 7. Obesity, Body mass index is 52.92 kg/m. a. Obesity has significant effects on respiratory function, which contribute significantly to the burden of respiratory disease. The mechanical properties of the lungs and chest wall are altered significantly in obesity, largely due to fat deposits in the mediastinum and the abdominal cavities. These alterations reduce the compliance of the lungs chest wall and entire respiratory system (causing increased stiffness and reduction in respiratory system), and likely contribute to the respiratory symptoms of obesity such as wheeze, dyspnea, and orthopnea. 8. CHF a. Continue diuretics as prescribed, continue following with cardiology 9. Tachycardia a. ekg unchanged at today's visit in comparison to last visit with cardiology ( 12/08/2022) b. If symptoms worsen, should contact cardiology or be seen at ER - Follow up in 3 months, sooner if needed. - All questions and concerns answered to patient's apparent satisfaction. I spent a total of 40-54 minutes (exact time 45 mins) on the date of service in preparation, delivery, and documentation of the care provided to Kimberly Kendall excluding any time spent in the performance of separately billed services. [facility], [place] [address] documented in this encounter Procedure Notes * Chavez Melo DO - 12/14/2022 1:53 PM ESTAssociated Order(s): EKG REASON FOR STUDY: tachycardia CONCLUSIONS: Sinus tachycardia Low voltage QRS, consider pulmonary disease, pericardial effusion, or normal variant Nonspecific ST and T wave abnormality Abnormal ECG When compared with ECG of 08-DEC-2022 12:53, No significant change was found Ventricular Rate: 113 Atrial Rate: 113 SD Interval: 136 QRS Duration: 84 QT/QTc: 334/458 ms P-R-T [place]: 20 : -5 : 69 degrees documented in this encounter Nursing Notes * Mali Benz LPN - 12/14/2022 12:56 PM EST Chief Complaint Patient presents with Follow Up COPD Interm History/Respiratory Symptoms Cough: at HS-productive Hemoptysis: no Sinus Symptoms: no Hospitalizations: no ED Trips: no Triggers: anxiety,after showering Nocturnal: SOB laying down CPAP/BiPAP/O2: O2 @ 5 lpm Flu Vaccine: 08/28/22 Pneumovax: 03/20/09 Prevnar: no COVID 19: no Mmrc Cat Question 12/14/2022 1:02 PM EST - Filed by Mali Benz LPN When do you become breathless? (4) I [...] when walking up a hill or steps? (0) - When I walk up a hill or one flight of stairs I am not breathless How limited are you doing activities at home? (5) - I am very limited doing activities at home How confident are you leaving home with your lung condition? (5) - I am not at all confident leaving my home because of my lung condition How soundly do you sleep? (5) - I don't sleep soundly because of my lung condition How much energy do you have? (5) - I have no energy at all Total MMRC Score (range: 0 - 4) 4 Total CAT Score (range: 0 - 40) 33 documented in this encounter Plan of Treatment Upcoming Encounters Date Type Specialty Care Team Description 12/16/2022 Telemedicine Psychiatry Hugo Alcantara MD [address] [facility] [place] [address] 12/16/2022 Telemedicine Family Medicine Francisco Thapa CRNP [address] [address] 12/17/2022 Office Visit Sleep Disorders Mariposa Gay DO [address] [address] 12/24/2022 Laboratory Laboratory Processing [facility] Mobile Home Draw [address] [place], [place] [id number] 12/25/2022 [facility] [address] [place] [address] 01/13/2023 Procedure Only Endoscopy Shaneka Santiago MD [address] [facility] [place] [address] 03/11/2023 Office Visit Neurology Hina Lion PA-C [address] [place] [address] 03/16/2023 Office Visit Pulmonary Alisha Carrero CRNP [address] [place] [address] 03/17/2023 PulmDiagnostic Pulmonary Function [place], [address] [place] [address] 07/07/2023 Office Visit Cardiology Jerry Pacheco DO [address] [place] [address] Health Maintenance Due Date Last Done Comments [...] 02/16/2022 LUNG CANCER SCREENING - USE SMARTSET [id number] Completed 03/16/2022 Influenza Vaccine (FLU shot) Completed [...] Procedure Name Priority Date/Time Associated Diagnosis Comments SD ECG ROUTINE ECG W/LEAST 12 LDS W/I&R Routine 12/14/2022 1:53 PM EST Tachycardia documented in this encounter Results * EKG (12/14/2022 1:53 PM EST) 12/14/2022 1:53 PM EST Procedure Note Chavez Melo DO - 12/14/2022 1:53 PM EST REASON FOR STUDY: tachycardia CONCLUSIONS: Sinus tachycardia Low voltage QRS, consider pulmonary disease, pericardial effusion, ornormal variant Nonspecific ST and T wave abnormality Abnormal ECG When compared with ECG of 08-DEC-2022 12:53, No significant change was found Ventricular Rate: 113 Atrial Rate: 113 SD Interval: 136 QRS Duration: 84 QT/QTc: 334/458 ms P-R-T [place]: 20 : -5 : 69 degrees Alisha Andino Magan [facility] documented in this encounter Visit Diagnoses Diagnosis Chronic hypoxemic respiratory failure (HCC)- Primary Chronic respiratory failure COPD, group B, by GOLD 2017 classification (HCC) SOB (shortness of breath) Shortness of breath Physical deconditioning Debility, unspecified Obstructive sleep apnea Obstructive sleep apnea (adult) (pediatric) History of tobacco abuse Personal history of tobacco use, presenting hazards to health Chronic diastolic CHF (congestive heart failure) (HCC) Chronic diastolic heart failure Tachycardia Tachycardia, unspecified Morbid obesity due to excess calories (HCC) documented in this encounter Care Teams Cost Clerk Relationship Specialty Start Date End Date Roger Alexandra MD [address] [place] [address] PCP - General Family Medicine 12/29/19 documented as of this encounter
--- OUTSIDE RECORDS SUMMARY | 2023-07-25 04:24 | External Medical Summary | Summary of Care ---
Author Name Unknown Organization [place] [address] Care Team Providers Care Pmp Project Manager Name Role Phone Roger Alexandra MD Primary Care Provider [phone] Reason for Visit * Reason Comments Test Results * - Authorized Specialty Diagnoses / Procedures Referred By Contac t Referred To Contact Referral ID Status Reason Start Date Expiration Date V isits Requested Visits Authorized [id number] Authorized 10/14/2023 999 999 Encounter Details Date Type Department Care Team Description 12/01/2022 Telemedicine Neuropsychology [facility] [address] [place] [address] Roger Drake, PhD [address] [place] [address] Major neurocognitive disorder, due to vascular disease, without behavioral disturbance, mild*; MDD (major depressive disorder), recurrent severe, 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 OR As directed by coumadin clinic. 90 Tablet 3 02/16/2022 Active oxygen IN GASIndications:Chroni c hypoxemic respiratory failure (HCC),COPD, group D, by GOLD 2017 classification ([facility]) Use 2 LPM at rest, 4 LPM [...] mg before bedtime. 0 Active Disposable Brief X-LargeIndications:Ov eractive bladder Attends X-Large Super Absorb Underwear 32 Each 2 09/08/2022 Active Fluticasone-Salmetero l 115-21 MCG/ACT Inhalation Aerosol (Advair HFA) Inhale by mouth 2 Puffs in the morning AND 2 Puffs before bedtime. 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 18 g 1 09/29/2022 Active Ipratropium-Albuterol 0.5-2.5 (3) MG/3ML Inhalation Solution (Duoneb) [...] bedtime. 30 Tablet 2 11/06/2022 Active Nystatin 217776 UNIT/GM External Powder (Nyamyc) apply to affected area twice a day 15 g 1 11/18/2022 Active Baclofen 10 MG Oral Tablet (Lioresal)Indications :Chronic bilateral low back pain without sciatica take 1 tablet by mouth three times a day if needed for muscle spasm 90 Tablet 0 11/24/2022 Active traMADol HCl 50 MG Oral Tablet (Ultram)Indications:C hronic bilateral low back pain without sciatica Take 2 Tablets by mouth every 8 hours as needed for Pain, Moderate. 180 Tablet 0 11/24/2022 Active Hospital, Clinic, or Other Facility Administered Medication Ordered Dose Route Frequency Start Date End Date Status Albuterol Sulfate (Proventil) (2.5 MG/3ML) 0.083% inhalation solution 2.5 mgIndications:Chronic hypoxemic respiratory failure (HCC),COPD, group D, by GOLD 2017 classification ([facility]) 2.5 mg NEBULIZER PRN 03/10/2022 03/10/2023 Acti ve Albuterol Sulfate (Proventil) (5 MG/ML) 0.5% *conc* inhalation solution 2.5 mgIndications:Chronic hypoxemic respiratory failure (HCC),COPD, group D, by GOLD 2017 classification ([facility]) 2.5 mg NEBULIZER PRN 03/10/2022 03/10/2023 Acti ve documented as of this encounter (statuses as of 12/02/2022) Active Problems Problem Noted Date Decreased functional [...] as of this encounter (statuses as of 12/02/2022) Resolved Problems Problem Noted Date Resolved Date [...] as of this encounter (statuses as of 12/02/2022) Immunizations Name Administration Dates Next Due H1N1 [...] as of this encounter Progress Notes * Roger Drake, PhD - 12/02/2022 3:22 PM EST Patient location: HOME. I was in a hospital or clinic location. After connecting through [employer],patient was verified with two unique identifiers. Patient (or authorized legal contracts representative) was then informed that this was a Telemedicine visit and being conducted confidentially over secure lines. Methods to assure confidentiality were taken. Patient acknowledged consent and understanding of pr ivacy and security of the Telemedicine visit. The patient agreed to participate. Name: Kimberly Kendall Date of Evaluation: 11/18/2022 Date of Encounter: 12/01/2022 Date of : 1960 Age: 62 Education: 9 years Evaluated by: hCa Champion, PhD (Neuropsychology Postdoctoral Resident); Roger Drake, PhD, ABN (Neuropsychologist) NEUROPSYCHOLOGY FEEDBACK NOTE Ms. Kimberly Kendall, presented for a neuropsychology feedback appointment to review the results, impressions, and recommendations of an evaluation that was conducted on 11/18/2022. Appointment was co-conducted by Drs. Drake and Jaycee. Patient was alone. Patient reported that she is feeling very depressed since her last visit with neuropsychology. She feels that her memory is worse even compared to a couple of weeks ago when she was seen for the evaluation, and that others are getting frustrated with her not understanding things. She denied SI when asked directly. Her sleep remains poor despite purchasing a more comfortable mattress. She reported anxious thoughts keep her awake. Her appetite was described as okay and her energy is very low. She also reported experiencing a racing heart since her echocardiogram completed on 11/26/22; she has been in contact with her PCP regarding this concern and has an appt with cardiology on 12/08/22. Pt stated she is aware of what symptoms would necessitate a call to emergency services. Results, impressions, and recommendations were reviewed (see full report available on 11/18/22). Patient verbalized understanding and expressed appreciation. She is aware that she may contact the clinic with any additional questions. She was amenable to recommendations for a referral to cognitive re habilitation and neurology (for continuation of care). The pt was also provided with resources for contacting a therapist/counselor. Patient was stable at the conclusion of the appointment. Summary and Conclusions: On formal neuropsychological testing, Ms. Kendall appeared to put forth good effort. Single word reading ability was unusually low.It should be noted that Ms. Kendall completed 9 years of education and, although she denied grade repetition or diagnosis of learning disability, she did report poor academic performance (grades were mostly Ds) which she attributed to not putting forth sufficient effort. As such, the aforementioned estimate of academic achievement (word reading) may underestimate the pts true baseline intellectual capabilities and is conceivably more reflective of limited educational enrichment/engagement. Low average to average baseline capabilities is likely a reasonable estimation. Simple auditory/verbal attention was average and auditory/verbal working memory was low average. Complex psychomotor processing speed and simple numeric sequencingwere both frankly reduced. Language tasks were variable with normal confrontation picture naming, low average phonemic fluency, and frankly reduced semantic fluency. The RBANS visuospatial index score was low average overall. Performance on a figure copy task integrating different details and elements was average. An additional task of visual analysis and judgment of angular line orientations waslow average. Additional tasks thought to be associated with executive functions were also frankly impaired including a pencil/paper task of speeded divided attention/cognitive set-shifting and a taskof complex integrative attention. Clock drawing was mildly impaired (missing number, minor spatial misalignment, no size discrimination of clock hands). Verbal memory testing was characterized by weak encoding but with good retention of what limited amount of information was initially encoded. Acquisition of a 12-item word list (NAB) was extremely low (learning trials raw=2, 1, 1). Recall after short delay (raw = 3) was unusually low and low average after long delay (raw = 4). There was modest b enefit from recognition cues, with 10/12 hits and 6 false positive errors (low average discriminability). Memory for a previously copied geometric figure (as described above) was average. Pt endorsed severe anxiety (SIMA-7= 21) and moderately severe depression (PHQ-9 = 19) on self-reportquestionnaires. Her mental health history is reportedly significant for MDD, SIMA, PTSD, and schizoaffective d/o (per EMR). She is currently prescribed Remeron, Ativan, Buspar (managed by Dr. Alcantara, [facility] psychiatry) but does not feel her current medication regimen is helpful. Pt denied SI/HIupon direct questioning. In terms of functional status, the pt does require assistance for many basic and instrumental ADLs, and while this is partly related to physical limitations (e.g., dressing, bathing, driving), the pt and her granddaughter believe that she would have difficulty completing more complicated aspects of instrumental ADLs (e.g, finances, managing medications) independently. Thepts granddaughter provides care for pt Wednesday-Wednesday, 8AM- 4PM. The pts granddaughter rated her at a mild dementia level of functioning on a formal dementia severity rating scale. Impression at this time is one of major vascular neurocognitive disorder, mild stage severity; pt has a known stroke history, numerous vascular risk factors (COPD, chronic hypoxemic respiratory failure, RUFINA, CHF, paroxysmal a-fib, Von Willebrand disease, elevated BMI), and positive neuroimaging findings (completed 10 years ago; chronic cortical infarcts, chronic microvascular disease). Additionally, the pts neurocognitive profile (reduced processing speed, poor memory encoding, and executivedysfunction) is consistent with cerebrovascular disease. Additionally, there appears to have been adecline in functional status since pts last hospitalization in January 2022. While the etiology ofpts current cognitive difficulty is thought to be primarily driven by CVD/vascular events, thereare several other factors that are likely compounding pts experience of cognitive dysfunction including significantly elevated mood and psychiatric symptoms (anxiety, panic attacks, hx of MDD, SIMA, PTSD and schizoaffective d/o), poor sleep, untreated RUFINA, chronic pain, and daily headaches. She is also on quite a few medications, and therefore medication side effects may also be contributing tosome degree. Recommend pt/providers work to ameliorate any of the above modifiable factors to the extent possible. Diagnostic Impressions: Major Vascular Neurocognitive Disorder Major Depressive Disorder, Recurrent Episode, Severe Generalized Anxiety Disorder PTSD (per history) Schizoaffective Disorder (by history) Recommendations: 1. Continue with treatment through psychiatry to address elevated mood and psychiatric symptoms. May consider medication optimization as there is room for improvement in management of the pts current depression and anxiety symptoms. Pt is also encouraged to consider reestablishing with therapy/counseling for tips and strategies for addressing intense emotions. 2. Continue to work with physicians to address chronic medical conditions and cerebrovascular risk factors to reduce the risk of further decline. Recommend treatment for RUFINA. Consider referral to pain management if not already considered or pt may benefit from alternative pain relief options such as Cognitive Behavioral Therapy for Chronic Pain (CBT-CP). 3. Pt may consider a referral for cognitive rehabilitation services through speech and language pathology. 4. Pt reported that she is followed by Dr. Olivares for neurology, however, Dr. Olivares has recentlyretired. It is strongly recommended that pt establish with a neurology provider for continued monitoring and management. 5. Healthy, balanced, and active lifestyle is recommended for overall wellbeing and long-term brainhealth. This includes eating a healthy diet, actively managing stress, getting an adequate amount of restful sleep, and staying socially and mentally active. Pt may consider seeking out physical therapy or personal training to assist with increased mobility and physical health. 6. Ms. Kendall and family are encouraged to develop compensatory strategies, such as the following,to help address cognitive problems (some may become relevant in the future): a. Use external memory aids, such as a white board or a large wall calendar for appointments. b. Set an alarm/timer to help you remember daily routine tasks such as taking your medications. i. For caregivers this could include setting daily reminders on his phone or an external alarm clock that will ring when a task needs to be completed. You may write down important information on a large calendar or white board that provides Mr. Burgess with a reference should he forget something. c. Avoid complex and complicated tasks. If you have to complete a task, make sure that you have [id number] instructions that are easy to follow. Complete tasks one step at a time. d. For caregivers this means providing Ms. Kendall with simple and short instructions. Avoid givingmultiple-step instructions at once - rather break instructions down in several small steps. For important tasks, such as medication adherence, double check that the task is being completed correctly b efore and after she is finished (ex. check medication dosage before administration, etc.) 7. As progressive decline may be anticipated, planning for future care should take place as early in the disease as possible. This may include completing a healthcare proxy, a living will or power ofattorney for healthcare and/or finances, that can help ensure that a person's healthcare needs are met if they have difficulty voicing wishes or making decisions on their own. Legal and financial planning can be completed with the help of an elder care geophysical laboratory supervisor who understands many of the legal andfinancial issues associated with long-term elder care, and can advise the person about his/her options based on and individual's present situation. 8. Neuropsychology is available in the future as clinically indicated. Roger Drake, Ph.D., [facility] Neuropsychologist Service Time: 30 mins (77947) documented in this encounter Plan of Treatment Upcoming Encounters Date Type Specialty Care Team Description 12/08/2022 Office Visit Cardiology Jerry Pacheco DO [address] [place] [address] 12/10/2022 Laboratory Laboratory Processing [facility] [place] Draw [address] [place] [address] 12/11/2022 [facility] [address] [place] [address] 12/14/2022 Office Visit Pulmonary Magan, COY Cabezas [address] [place] [address] 12/16/2022 Telemedicine Psychiatry Hugo Alcantara MD [address] [place] [address] 01/13/2023 Procedure Only Endoscopy Shaneka Santiago MD [address] [address] 03/17/2023 PulmDiagnostic Pulmonary Function [place], [facility] [address] Health Maintenance Due Date Last Done Comments [...] 04/23/2021 *ADVANCE DIRECTIVE NOT ON FILE 02/16/2022 O2 ASSESSMENT COMPLETED IN PAST YEAR FOR COPD 09/30/2023 09/30/2022 Mammogram 09/04/2024 09/04/2022, 10/15, 04/27/2014, Additional history exists Diabetes Screening 10/23/2025 10/23/2022, 0 01/15/2022, 01/08/2022, Additional history exists COLONOSCOPY-EVERY 5 YRS AGES 18-100 11/12/2025 11/12/2020, 05/22/2013, 08/21/2011, Additional history exists Alpha-1 Antitrypsin Completed 02/16/2022 LUNG CANCER SCREENING - USE SMARTSET 82405 Completed 03/16/2022 Influenza Vaccine (FLU shot) Completed [...] episode, severe, without mention of psychotic behavior SIMA (generalized anxiety disorder) Generalized anxiety disorder PTSD (post-traumatic stress disorder) Posttraumatic stress disorder documented in this encounter Care Teams Pmp Project Manager Relationship Specialty Start Date End Date Roger Alexandra MD [address] [address] PCP - General Family Medicine 12/29/19 documented as of this encounter
--- OUTSIDE RECORDS SUMMARY | 2023-07-25 04:24 | External Medical Summary | Summary of Care ---
Author Name Unknown Organization [place] [address] Care Team Providers Care Health Services Director Name Role Phone Roger Alexandra MD Primary Care Provider [phone] Reason for Referral * Evaluate & Treat - Unlimited Visits (Within 10 days (routine)) - Authorized Specialty Diagnoses / Procedures Referred By Contlakia t Referred To Contact Sleep Medicine / Sleep Disorders Diagnoses Obstructive sleep apnea Roger Alexandra MD [address] [place] [address] Referral ID Status Reason Start Date Expiration Date Visits Requested Visits Authorized [id number] Authorized Specialty Services Required 12/03/2022 2 2 Question Answer GS CAD SLEEP MED ADULT REFERRAL Sleep Apnea Testing and Management Does the patient snore and/or gasp at night or has been told they stop breathing at night? Yes Referral Priority Within 10 days (routine) Reason for Visit * Reason Onset Date Comments Appointment 12/03/2022 Encounter Details Date Type Department Care Team Description 12/03/2022 Telephone Family Practice [facility] [address] [address] Roger Alexandra MD [address] [address] Appointment Allergies Active Allergy Reactions Severity Noted Date Comments Aspirin Unknown 12/12/2007 von Willebrand's disease Salicylates 03/01/2000 von Willebrand's disease documented as of this encounter (statuses as of 12/04/2022) Medications Medication Sig Dispensed Refills Start Date [...] bedtime. 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 30 Tablet 2 11/06/2022 Active Nystatin 187919 UNIT/GM External Powder (Nyamyc) apply to affected [...] classification (HCC) 2.5 mg NEBULIZER PRN 03/10/2022 03/10/2023 Acti ve Albuterol Sulfate (Proventil) (5 MG/ML) 0.5% *conc* inhalation solution 2.5 mgIndications:Chronic hypoxemic respiratory failure (HCC),COPD, group D, by GOLD 2017 classification (HCC) 2.5 mg NEBULIZER PRN 03/10/2022 03/10/2023 Acti ve documented as of this encounter (statuses as of 12/04/2022) Active Problems Problem Noted Date Decreased functional [...] as of this encounter (statuses as of 12/04/2022) Resolved Problems Problem Noted Date Resolved Date [...] as of this encounter (statuses as of 12/04/2022) Immunizations Name Administration Dates Next Due H1N1 [...] * Telephone Encounter - RUFINA Garcia - 12/04/2022 8:38 AM EST I talked to pt, appt with sleep med scheduled. She is going to call her insurance and see where shecan go or speech/hearing and will self schedule * Telephone Encounter - Roger Alexandra MD - 12/03/2022 9:17 AM EST Neuropsych recommended patient be referred to sleep medicine and speech/language therapy. I'm not certain I put the latter in correctly. If not, please pend the CORRECT way to refer, pend it, and then forward back to me. Thank you! Dr. alexandra documented in this encounter Plan of Treatment Upcoming Encounters Date Type Specialty Care Team Description 12/08/2022 Office Visit Cardiology Jerry Pacheco, DO [address] [place] [address] 12/10/2022 Laboratory Laboratory Processing [facility] [place] Home Draw [address] [place] [address] 12/10/2022 Office Visit Sleep Disorders Mariposa Gay DO [address] [address] 12/11/2022 [facility] [address] [facility] [place] [address] 12/14/2022 Office Visit Pulmonary Alisha Carrero CRNP [address] [place] [address] 12/16/2022 Telemedicine Psychiatry Hugo Alcantara MD [address] [place] [address] 01/13/2023 Procedure Only Endoscopy Shaneka Santiago MD [address] [place] [address] 03/11/2023 Office Visit Neurology Hina Lion PA-C [address] [place] [address] 03/17/2023 PulmDiagnostic Pulmonary Function [place], [facility] [address] [place] [address] Scheduled Orders Name Type Priority Associated Diagnoses Orde r Schedule SPEECH/HEARING THERAPY, INDIVIDUAL Procedures Routine Cognitive dysfunction Adult onset fluency disorder Ordered: 12/03/2022 Scheduled Referrals Name Type Priority Associated Diagnoses Orde r Schedule SLEEP MEDICINE REFERRAL OP Referral Within 10 days (routine) Obstructive sleep apnea Ordered: 12/03/2022 Health Maintenance Due Date Last Done Comments [...] 02/16/2022 LUNG CANCER SCREENING - USE SMARTSET 99509 Completed 03/16/2022 Influenza Vaccine (FLU shot) Completed [...] apnea- Primary Obstructive sleep apnea (adult) (pediatric) Cognitive dysfunction Unspecified persistent mental disorders due to conditions classified elsewhere Adult onset fluency disorder documented in this encounter Care Teams Health Services Director Relationship Specialty Start Date End Date Roger Alexandra MD [address] [address] PCP - General Family Medicine 12/29/19 documented as of this encounter
--- OUTSIDE RECORDS SUMMARY | 2023-07-25 04:24 | External Medical Summary ---
Author Name Unknown Address Unknown Organization [facility] [address] [place] [address] Laboratory Report Ordering Provider Test Date Status SUMAN STANFORD 12/10/2022 11:23:00 Final Observation Date Value Abnormality Reference (Units ) Status PT 12/10/2022 11:23:00 18.5 Above high normal 11 .6-15.2 (seconds) Final INR 12/10/2022 11:23:00 1.5 Above high normal 0. 8-1.2 Final Performing Location [facility] [address] [place] [address]
--- OUTSIDE RECORDS SUMMARY | 2023-07-25 04:24 | External Medical Summary | Summary of Care ---
Author Name Unknown Organization [place] [address] Care Team Providers Care Broke Beater Machine Operator Name Role Phone Roger Alexandra MD Primary Care Provider [phone] Reason for Visit * Reason Comments case management Encounter Details Date Type Department Care Team Description 11/26/2022 Directory ClerkHead Sawyer Automatic [address] [place] [address] Yara [place] RN Medical home patient encounter* Allergies Active Allergy Reactions Severity Noted Date Comments Aspirin Unknown 12/12/2007 von Willebrand's disease Salicylates 03/01/2000 von Willebrand's disease documented as of this encounter (statuses as of 11/26/2022) Medications Medication Sig Dispensed Refills Start Date [...] bedtime. 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:DENTURE WAXER D, group D, by GOLD 2017 classification ([facility]),Chronic hypoxemic respiratory failure (HCC) Use with nebulized [...] bedtime. 30 Tablet 2 11/06/2022 Active Nystatin 999417 UNIT/GM External Powder (Nyamyc) apply to affected [...] as of this encounter (statuses as of 11/26/2022) Active Problems Problem Noted Date Decreased functional [...] as of this encounter (statuses as of 11/26/2022) Resolved Problems Problem Noted Date Resolved Date [...] as of this encounter (statuses as of 11/26/2022) Immunizations Name Administration Dates Next Due H1N1 [...] Progress Notes * Yara [place] RN - 11/26/2022 2:00 PM EST 1. Follow-up Routine 2. Attempted Phone Call First Attempt 3. Call Unanswered Left Voicemail 4. Plan To attempt Follow-up documented in this encounter Plan of Treatment Upcoming Encounters Date Type Specialty Care Team Description 12/01/2022 Office Visit Pulmonary Alisha Carrero CRNP 132 [facility] [place] [address] 12/01/2022 Therapy Psychiatry Cha Champion, PhD [address] [place] [address] [place] [address] 12/10/2022 Laboratory Laboratory Processing [facility] [place] Mobile Home Draw [address] [place] [address] 12/11/2022 [facility] [address] [place] [address] 12/16/2022 Telemedicine Psychiatry Hugo Alcantara MD [address] [place] [address] 01/13/2023 Procedure Only Endoscopy Shaneka Santiago MD 132 [facility] [place] [address] 03/17/2023 PulmDiagnostic Pulmonary Function [place], Pft [address] [place] [address] Health Maintenance Due Date Last Done Comments [...] 02/16/2022 LUNG CANCER SCREENING - USE SMARTSET [id number] Completed 03/16/2022 Influenza Vaccine (FLU shot) Completed [...] examination documented in this encounter Care Teams Broke Beater Machine Operator Relationship Specialty Start Date End Date Roger Alexandra MD [address] [place] [address] PCP - General Family Medicine 12/29/19 documented as of this encounter
--- OUTSIDE RECORDS SUMMARY | 2023-07-25 04:24 | External Medical Summary | Summary of Care ---
Author Name Unknown Organization [place] [address] Care Team Providers Care Alarm Mechanism Adjuster Name Role Phone Jeevan Alexandra MD Primary Care Provider [phone] Reason for Visit * Reason Comments NEW PATIENT * Evaluate & Treat - Unlimited Visits (Within 10 days (routine)) - Authorized Specialty Diagnoses / Procedures Referred By Anna t Referred To Contact Cardiovascular Medicine / Cardiology Diagnoses Paroxysmal atrial fibrillation (HCC) Jeevan Alexandra MD 132 [facility] [place] [address] Referral ID Status Reason Start Date Expiration Date Visits Requested Visits Authorized [id number] Authorized Specialty Services Required 11/30/2022 999 999 Encounter Details Date Type Department Care Team Description 12/08/2022 Office Visit Cardiology, [facility] [address] [place] [address] Jerry Pacheco, 132 [facility] [place] [address] Sinus tachycardia*; Other iron deficiency anemia; PFO (patent foramen ovale) Allergies Active Allergy Reactions Severity Noted Date Comments Aspirin Unknown 12/12/2007 von Willebrand's disease Salicylates 03/01/2000 von Willebrand's disease documented as of this encounter (statuses as of 12/08/2022) Medications Medication Sig Dispensed Refills Start Date End Date Status Warfarin Sodium 5 MG Oral Tablet (Coumadin)Indication s:Paroxysmal atrial fibrillation (HCC) Take by mouth 1 Tablet in the evening. OR As directed by coumadin clinic. 90 Tablet 3 02/16/2022 Active oxygen IN GASIndications:Chron ic hypoxemic respiratory failure (HCC),COPD, group D, by GOLD 2017 classification ([facility]) Use 2 LPM at rest, [...] PD, group D, by GOLD 2017 classification ([facility]),Chronic hypoxemic respiratory failure ([facility]) Use with nebulized meds 1 Each 0 09/16/2022 Active Full Kit Nebulizer SetIndications:COPD, group D, by GOLD 2017 classification ([facility]),Chronic hypoxemic respiratory failure ([facility]) Use with nebulizer 1 Each [...] bedtime. 30 Tablet 2 11/06/2022 Active Nystatin 779627 UNIT/GM External Powder (Nyamyc) apply to affected [...] as of this encounter (statuses as of 12/08/2022) Active Problems Problem Noted Date Decreased functional [...] as of this encounter (statuses as of 12/08/2022) Resolved Problems Problem Noted Date Resolved Date [...] as of this encounter (statuses as of 12/08/2022) Immunizations Name Administration Dates Next Due H1N1 [...] Sign Reading Time Taken Comments Blood Pressure 116/76 12/08/2022 12:55 PM EST Pulse 116 12/08/2022 12:55 PM EST Temperature 36.6 C (97.8 F) 12/08/2022 12:[address] Respiratory Rate 22 12/08/2022 12:55 PM EST Oxygen Saturation - - Inhaled Oxygen Concentration - - Weight 133.4 kg (294 lb) 12/08/2022 12:55 PM EST Height - - Body Mass Index 52.92 09/30/2022 8:55 AM EST documented in this encounter Progress Notes * Jerry Pacheco DO - 12/08/2022 1:15 PM EST Cardiology Consultation [facility] 12/08/2022 PCP: JEEVAN ALEXANDRA [address] [place] [address] [place] [address] [phone] History of Present Illness: Kimberly Kendall is a 62 year old year old female seen in cardiology consultation per the request of Dr. Alexandra for the evaluation of paroxysmal atrial fibrillation. The patient had previously followed with Dr. Deutsch of cardiology in [place]. Most recent progress note available for review dates back to April,. The note describes that she has a history of COPD for which she is on chronic oxygen supplementation and patient tells me that she has had 9 past stroke events. Has a history of von Willebrand's disease. She reportedly underwent nuclear stress test for the evaluation of dyspnea on exertion and atypicalchest pain in December 2016 that suggested ischemia. Cardiac catheterization performed in [place] 01/06/2017 reportedly revealed no obstructive coronary heart disease, LVEF 50% by left ventriculogram, subsequently improved to 60% on follow-up echocardiogram September,. Bilateral lower extremityedema noted the time the progress note for which treatment with furosemide and metolazone recommended at that time in 2016. The patient presents in a wheelchair today, her BMI is 52.9 kilograms/meter squared. Audible wheezing noted on exam. She is concerned because she feels her heart rate is elevated from time to time, and has a sensation of this that she feels in her chest. Review of Systems: All systems reviewed & are unremarkable except as noted in HPI & below Past Medical History: Patient Active Problem List Diagnosis Code Irritable [...] Z86.73 Chronic diastolic CHF (congestive heart failure) ([facility]) I50.32 PTSD (post-traumatic stress disorder) F43.10 COPD, group D, by GOLD 2017 classification ([facility]) J44.9 Chronic hypoxemic respiratory failure ([facility]) J96.11 History of narcotic addiction ([facility]) F11.21 Decreased functional mobility R26.89 Past Surgical History: Procedure Laterality Date BREAST BIOPSY Left benign--- done in her late 20's COLONOSCOPY THRU STOMA, W/BIOPSY 10/06/2010 adenomatous/repeat colonoscopy in 1 yr COLONOSCOPY THRU STOMA, W/BIOPSY 05/22/2013 hyperplastic polyp COLONOSCOPY, DIAGNOSTIC (RECTUM) 11/12/2020 large adenomatous polyp, repeat 6 mo / [facility] EGD, FLEXIBLE, DIAGNOSTIC 02/26/2015 retained food/[facility] EGD, FLEXIBLE, DIAGNOSTIC 11/12/2020 Gastric submucosal mass / [facility] EGD, FLEXIBLE, DIAGNOSTIC 11/06/2020 gastritis / [facility] EGD, FLEXIBLE, W/BIOPSY 05/19/2013 EGD, W/ENDOSCOPIC US 11/05/2011 UPPER GI ENDOSCOPY ENDOSCOPIC ULTRASOUND performed by BERENICE ASHBY at [facility]; REPAIR INITIAL INGUINAL HERNIA REMOVE GALLBLADDER TOTAL HYSTERECTOMY and bso Family History: Family History Problem Relation Age of Onset Lung Disorder Mother copd Other (hepatitis) Mother Heart Disorder Father age 55 mu Mental Disorder Father schizophrenia Asthma Father Other (Other) Sister from sleep apnea Neurological Disorder Sister MR and epilepsy Other (Other) Son 2 sons von willebrand Other (Other) Daughter asd Social History: Social History Socioeconomic History Marital status: Spouse name: Not on file Number of children: 3 Years of education: Not on file Highest education level: Not on file Occupational History Disabled Tobacco Use Smoking status: Former Packs/day: 1.50 Years: 32.00 Pack years: 48.00 Types: Cigarettes Quit date: 2019 Years since quittin.0 Smokeless tobacco: Never Vaping Use Vaping Use: Former Substance and Sexual Activity Alcohol use: No Drug use: No Sexual activity: Yes Partners: Male Allergies: Aspirin and Salicylates Medications: Current Outpatient Medications Medication Sig Dispense Refill [...] tablet by mouth daily 30 Tablet 5 ProAir HFA 108 (90 Base) MCG/ACT Inhalation Aerosol Solution Inhale 2 Puffs by mouth in the morning and 2 Puffs at noon and 2 Puffs in the evening and 2 Puffs before bedtime. 18 g 1 Bumetanide 1 MG Oral Tablet Take 1 [...] (20 mg) before bedtime. 120 Tablet 2 LORazepam 0.5 MG Oral Tablet (Ativan) Take 1 Tablet (0.5 mg) by mouth every 8 hours as needed for Anxiety. 90 Tablet 1 Mirtazapine 30 MG Oral Tablet (Remeron) Take 1 Tablet by mouth at bedtime. 30 Tablet 2 Nystatin 208304 UNIT/GM External Powder (Nyamyc) apply to affected area twice a day 15 g 1 Baclofen 10 MG Oral Tablet (Lioresal) take 1 tablet by mouth three times a day if needed for muscle spasm 90 Tablet 0 traMADol HCl 50 MG Oral Tablet (Ultram) Take 2 Tablets by mouth every 8 hours as needed for Pain, Moderate. 180 Tablet 0 guaiFENesin ER 600 MG Oral Tablet Extended [...] Set Use with nebulizer 1 Each 0 Ipratropium-Albuterol 0.5-2.5 (3) MG/3ML Inhalation Solution (Duoneb) Inhale 3 mL by mouth every 6 hours as needed for Wheezing. (Patient not taking: Reported on 12/08/2022) 90 mL 3 Albuterol Sulfate 0.63 MG/3ML Inhalation Nebulization Solution (Accuneb) Inhale 1 Vial (0.63 mg) via nebulizer every 4 hours as needed for Wheezing or Shortness of Breath. (Patient not taking: Reported on 12/08/2022) 540 mL 12 Current Facility-Administered Medications Medication Dose Route Frequency Provider Last Rate Last Admin Albuterol Sulfate (Proventil) (2.5 MG/3ML) 0.083% inhalation solution 2.5 mg 2.5 mg Nebulizer PRN Jesus Bonilla MD Albuterol Sulfate (Proventil) (5 MG/ML) 0.5% *conc* inhalation solution 2.5 mg 2.5 mg NebulizerPRN Jesus Bonilla MD 2.5 mg at 05/07/22 1507 OBJECTIVE/PHYSICAL EXAMINATION: BP 116/76 | Pulse 116 | Temp 36.6 C (97.8 F) (Infrared ) | Resp 22 | Wt 133.4 kg (294 lb) | BMI52.92 kg/m | BSA 2.43 m General: no acute distress and stated age Eyes: conjunctiva are pink and non-injected, sclera clear Neck: normal jugular venous pulse, no hepatojugular reflux Chest: normal shape and normal respiratory effort Lungs: clear to auscultation and percussion Cardiac Exam: - regular heart sounds, no murmurs, rubs, or gallops Abdomen: abdomen soft, non-tender, no abnormal masses and no hepatosplenomegaly Musculoskeletal: no gait disturbance, no weakness Extremities: no edema and no cyanosis Neuro: grossly normal exam Psych: appropriate affect and insight. Data: EKG performed today 12/08/2022 and interpreted independently: Sinus tachycardia 115 beats per minute, poor R-wave progression, likely due to body habitus Summary of transthoracic echocardiogram performed 11/26/2022 with images reviewed independently by the undersigned in advance of today's visit: Sinus tachycardia with rate in the range of 100-106 beats per minute present during the echocardiogram. The qualitative LV ejection fraction is >70% (hyperdynamic). The left ventricular diastolic function is mildly abnormal (grade I). IMPRESSION: 62 year old year old female Sinus tachycardia (Primary) Other iron deficiency anemia PFO (patent foramen ovale) Comment: The diagnosis of atrial fibrillation first appears in her chart in 2009, as the diagnosis associated with Coumadin therapy. The patient however is unaware of the term atrial fibrillation . Per available records, I do not see any definite mention of past EKG rhythm strips that of capture the atrial fibrillation. I do see a well documented history of recurrent stroke events, she had a transesophageal echocardiogram performed in [place] in 2017 with findings of an atrial septal aneurysm and a PFO, in ongoing anticoagulation therapy for secondary prevention of stroke was recommended at that time which she has been on since at least 2003, per interventional cardiology note within the [facility] dated 10/16/2004. Based on her degree of dyspnea and wheezing on physical exam today, I believe her sinus tachycardiais likely physiologic. I have concerns with regards to starting her on beta-rosio therapy given risk of potentiating additional wheezing. She also has chronic lower extremity edema, which at this time is controlled on her diuretics, but would have concerns that if she was to start calcium channelblocker, her edema would be worse. Future consideration would be to add digoxin, but I am not optimistic that this would have a benefit of significance. Recommend ongoing treatment of her underlying lung disease and observation. Follow Up: Return in about 6 months (around 06/07/2023) for Clinic Visit. | For: Clinic Visit Jerry Pacheco DO Cardiology, [address] [place] [address] This chart was completed in part utilizing [employer] Speech Voice Recognition Software. Grammatical errors, random word insertions, prounoun errors, and incomplete sentences are an occasional consequence of this system due to software limitations, ambient noise, and hardware issues. Any formal questions or concerns about the content, text, or information contained within the body of this dictation should be directly addressed to the provider for clarification. documented in this encounter Procedure Notes * Edgard Hernandez MD - 12/08/2022 12:53 PM ESTAssociated Order(s): EKG REASON FOR STUDY: idiopathic cardiomyopathy; chronic diastol CONCLUSIONS: Sinus tachycardia Low voltage QRS, consider pulmonary disease, pericardial effusion, or normal variant Cannot rule out Anterior infarct , age undetermined Abnormal ECG When compared with ECG of 28-JAN-2016 14:42, No significant change was found Ventricular Rate: 115 Atrial Rate: 115 FL Interval: 140 QRS Duration: 82 QT/QTc: 330/456 ms P-R-T [place]: 31 : -5 : 61 degrees documented in this encounter Nursing Notes * Ryan Fallon RN - 12/08/2022 12:51 PM EST Examination Room: room 10 Name: Kimberly Kendall Date of : (1960). Reason for Visit: for new patient parox a-fib Interim Hospitalization(s): denies Problems/Concerns: denies Chest Pain/SOB: very [place]; denies chest pain at present [email or web address] Discussed: Not applicable [email or web address] is a way you can talk to [...] Date Type Specialty Care Team Description 12/10/2022 Laboratory Laboratory Processing [place], [facility] Mobile Home Draw [address] [place] [address] 12/10/2022 Office Visit Sleep Disorders Mariposa Gay DO 132 [facility] [place] [address] 12/11/2022 [facility] [address] [place] [address] 12/14/2022 Office Visit Pulmonary Alisha Carrero CRNP 132 [place] [address] 12/16/2022 Telemedicine Psychiatry Hugo Alcantara MD [address] [place] [address] 01/13/2023 Procedure Only Endoscopy Shaneka Santiago MD 132 [facility] [place] [address] 03/11/2023 Office Visit Neurology Hina Lion PA-C [facility] [place] [address] 03/17/2023 PulmDiagnostic Pulmonary Function [place], [address] [place] [address] 07/07/2023 Office Visit Cardiology [facility]co DO [facility] [place] [address] Pending Results Name Type Priority Associated Diagnoses Date /Time TSH WITH FREE T4 IF INDICATED Lab Routine Sinus tachycardia 12/08/2022 1:59 PM EST IRON SCREEN, INCLUDING TIBC Lab Routine Other iron deficiency anemia 12/08/2022 1:59 PM EST Scheduled Orders Name Type Priority Associated Diagnoses Orde r Schedule TSH WITH FREE T4 IF INDICATED Lab Routine Sinus tachycardia Expected: 12/08/2022, Expires: 12/08/2023 IRON SCREEN, INCLUDING TIBC Lab Routine Other iron deficiency anemia Expected: 12/08/2022, Expires: 12/08/2023 Health Maintenance Due Date Last Done Comments [...] 02/16/2022 LUNG CANCER SCREENING - USE SMARTSET [id number] Completed 03/16/2022 Influenza Vaccine (FLU shot) Completed [...] Procedure Name Priority Date/Time Associated Diagnosis Comments FL ECG ROUTINE ECG W/LEAST 12 LDS I&R ONLY Routine 12/08/2022 12:53 PM EST Sinus tachycardia documented in this encounter Results * (ABNORMAL) CBC (12/08/2022 1:59 PM EST) Pathologist [facility] WBC 7.42 4.00 - 10.80 K/uL 12/08/2022 2:27 PM EST [facility] [place] RBC 4.46 3.85 - 5.15 M/uL 12/08/2022 2:27 PM EST [facility] [place] [facility] HGB 10.2(L) 12.0 - 15.3 g/dL 12/08/2022 2:27 PM EST [facility] [place] [facility] HCT 35.4(L) 36.0 - 45.2 % 12/08/2022 2:27 PM EST [facility] [place] [facility] MCV 79.4 81.5 - 97.5 fL 12/08/2022 2:27 PM EST [facility] [place] [facility] MCH 22.9 27.0 - 34.0 pg 12/08/2022 2:27 PM EST [facility] [place] [facility] MCHC 28.8 32.0 - 36.0 g/dL 12/08/2022 2:27 PM EST [facility] [place] [facility] RDW 18.3 11.5 - 15.5 % 12/08/2022 2:27 PM EST [facility] [place] [facility] PLT 568(H) 140 - 400 K/uL 12/08/2022 2:27 PM EST [facility] [place] [facility] MPV 8.5 6.6 - 11.1 fL 12/08/2022 2:27 PM EST [facility] [place] [facility] Blood Venous blood specimen / Unknown Venipuncture / Unknown 12/08/2022 1:59 PM EST 12/08/2022 1:59 PM EST Jerry J Glen DO LAB BLOOD ORDERABLES Performing Organization Address [facility] Co de Phone Number LAB[facility]ATORY [facility] [place] [facility] [place] [address] * EKG (12/08/2022 12:53 PM EST) 12/08/2022 12:5 3 PM EST Procedure Note Edgard Hernandez MD - 12/08/2022 12:53 PM EST REASON FOR STUDY: idiopathic cardiomyopathy; chronic diastol CONCLUSIONS: Sinus tachycardia Low voltage QRS, consider pulmonary disease, pericardial effusion, ornormal variant Cannot rule out Anterior infarct , age undetermined Abnormal ECG When compared with ECG of 28-JAN-2016 14:42, No significant change was found Ventricular Rate: 115 Atrial Rate: 115 FL Interval: 140 QRS Duration: 82 QT/QTc: 330/456 ms P-R-T [place]: 31 : -5 : 61 degrees Jerry Pacheco DO EKG Performing Organization Address [facility] Co de Phone Number [facility] documented in this encounter Visit Diagnoses Diagnosis Sinus tachycardia- Primary Other specified cardiac dysrhythmias Other iron deficiency anemia PFO (patent foramen ovale) Ostium secundum type atrial septal defect documented in this encounter Care Teams Alarm Mechanism Adjuster Relationship Specialty Start Date End Date Jeevan Alexandra MD [address] [place] [address] PCP - General Family Medicine 12/29/19 documented as of this encounter"
--- OUTSIDE RECORDS SUMMARY | 2023-07-25 04:24 | External Medical Summary | Summary of Care ---
Author Name Unknown Organization [place] [address] Care Team Providers Care Physicians Assistant Name Role Phone Roger Alexandra MD Primary Care Provider [phone] [phone] Reason for Visit * Reason Comments case management Encounter Details Date Type Department Care Team Description 12/01/2022 Scow Derrick OperatorCattle Alley Worker [address] [place] [address] Yara [place] RN Medical home patient encounter* Allergies Active Allergy Reactions Severity Noted Date Comments Aspirin Unknown 12/12/2007 von Willebrand's disease Salicylates 03/01/2000 von Willebrand's disease documented as of this encounter (statuses as of 12/01/2022) Medications Medication Sig Dispensed Refills Start Date [...] bedtime. 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 Follow-up Routine 2. Attempted Phone Call Second Attempt 3. Call Unanswered Left Voicemail 4. Plan To attempt Follow-up documented in this encounter Plan of Treatment Upcoming Encounters Date Type Specialty Care Team Description 12/01/2022 Telemedicine Psychiatry Cha Champion, PhD [address] [place] [address] [place] [address] 12/08/2022 Office Visit Cardiology Jerry Pacheco DO 132 [facility] [place] [address] 12/10/2022 Laboratory Laboratory Processing [facility] Mobile Home Draw [address] [place] [address] 12/11/2022 [facility] [address] [place] [address] 12/14/2022 Office Visit Pulmonary Alisha Carrero CRNP 132 [facility] [place] [address] 12/16/2022 Telemedicine Psychiatry Hugo Alcantara MD [address] [place] [address] 01/13/2023 Procedure Only Endoscopy Shaneka Santiago MD 132 [facility] [place] [id number] 03/17/2023 PulmDiagnostic Pulmonary Function [place], Pft 132 [facility] [place] [address] Health Maintenance Due Date Last Done Comments [...] 02/16/2022 LUNG CANCER SCREENING - USE SMARTSET [id number] Completed 03/16/2022 Influenza Vaccine (FLU shot) Completed [...] examination documented in this encounter Care Teams Physicians Assistant Relationship Specialty Start Date End Date Roger Alexandra MD 132 [place] [address] PCP - General Family Medicine 12/29/19 documented as of this encounter
--- OUTSIDE RECORDS SUMMARY | 2023-07-25 04:24 | External Medical Summary ---
Author Name Unknown Address Unknown Organization K0G:[facility] [address] [place] [address] Laboratory Report Ordering Provider Test Date Status RONNIE DIAL 12/08/2022 13:59:06 Final Observation Date Value Abnormality Reference (Units ) Status WBC, Total 12/08/2022 13:59:06 7.42 4.00-10.8 0 (K/uL) Final RBC 12/08/2022 13:59:06 4.46 3.85-5.15 (M/uL) Final Hemoglobin 12/08/2022 13:59:06 10.2 Below low normal 12 .0-15.3 (g/dL) Final HCT 12/08/2022 13:59:06 35.4 Below low normal 36. 0-45.2 (%) Final MCV 12/08/2022 13:59:06 79.4 81.5-97.5 (fL) Final MCH 12/08/2022 13:59:06 22.9 27.0-34.0 (pg) Final MCHC 12/08/2022 13:59:06 28.8 32.0-36.0 (g/dL) Final RDW 12/08/2022 13:59:06 18.3 11.5-15.5 (%) Final Platelets 12/08/2022 13:59:06 568 Above high normal 14 0-400 (K/uL) Final MPV 12/08/2022 13:59:06 8.5 6.6-11.1 ( fL) Final Performing Location [facility] [address] [place] [address]
--- OUTSIDE RECORDS SUMMARY | 2023-07-25 04:24 | External Medical Summary | Summary of Care ---
Author Name Unknown Organization [place] [address] Care Team Providers Care Education Department Registrar Name Role Phone Roger Alexandra MD Primary Care Provider [phone] Encounter Details Date Type Department Care Team Description 11/18/2022 Documentation Neuropsychology [facility] [place] [address] [facility] [place] [address] Roger Drake, PhD [address] [facility] [place] [address] Allergies Active Allergy Reactions Severity Noted Date [...] bedtime. 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 30 Tablet 2 11/06/2022 Active Nystatin 262338 UNIT/GM External Powder (Nyamyc) apply to affected area twice a day 15 g 1 11/18/2022 Active traMADol HCl 50 MG Oral Tablet [...] Notes * Roger Drake, PhD - 12/02/2022 3:20 PM EST NEUROPSYCHOLOGY: SCORE SUMMARY SHEET Name: Kimberly Kendall Age: 62 Education: 9 years Date of Evaluation: 11/18/2022 DEPARTMENT OF PSYCHIATRY NEUROPSYCHOLOGICAL TEST RESULTS IQ, Index, and Standard Scores (SS): Mean = 100; Standard Deviation = 15 Scaled Scores: Mean = 10; Standard Deviation = 3 Z scores (z): Mean = 0; Standard Deviation = 1 T scores (T); Mean = 50; Standard Deviation = 10 GENERAL INTELLECTUAL FUNCTIONING/ACHIEVEMENT Wide Range Achievement Test - 4TH Edition (WRAT-4) Word Reading Standard Score = 75 (68-84, 95% Confidence Interval) ATTENTION/PROCESSING SPEED Repeatable Battery for the Assessment of Neuropsychological Status (Form A) Coding: ss = 4 Neuropsychological Assessment Battery (NAB Form 1) Attention Module Digits Forward: T = 44 Digits Backward: T = 41 Berlin Making Test Berlin A: T = 36 (0 errors) LEARNING AND MEMORY Neuropsychological Assessment Battery (NAB Form 1) Memory Module List Learning List A Immediate Recall (2,1,1): T = 19 List Learning List B Immediate Recall (2): T = 38 List Learning List A Short-Delayed Recall (3): T = 35 List Learning List A Long-Delayed Recall (4): T = 40 List Learning Percent Retention: 133%, 90%ile List Learning List A Long-Delayed Yes/No Recognition (10): 13%ile List Learning List A Long-Delayed Yes/No Recognition False Alarms (6): 10%ile List Learning List A Recognition Discriminability Index (4): 15%ile Repeatable Battery for the Assessment of Neuropsychological Status (Form A) Delayed Memory Figure Recall: ss = 8 LANGUAGE Neuropsychological Assessment Battery (NAB Form 1) Language Module Naming: T = 57 (raw = 31) Controlled Oral Word Association Test FAS: T = 37 Animals: T = 33 VISUOSPATIAL Repeatable Battery for the Assessment of Neuropsychological Status (Form A) Visuospatial/Constructional Index: SS = 84 Figure Copy: ss = 8 Line Orientation: 10-16cumul%ile EXECUTIVE FUNCTIONS Berlin Making Test Berlin B: T = 30 (0 errors) Controlled Oral Word Association Test FAS: T = 37 Animals: T = 33 Complex Ideational Material: raw = 9/12 (ss = 5) Clock Drawing Test: raw = 7/10 (mild impairment) EMOTIONAL/BEHAVIOR RATING SCALES PHQ-9: raw = 19 (moderately severe) SIMA-7: raw = 21 (severe) QDRS: raw = 12 (mild dementia) Roger Drake, Ph.D., ABN Neuropsychologist documented in this encounter Plan of Treatment Upcoming Encounters Date Type Specialty Care Team Description 12/08/2022 Office Visit Cardiology Jerry Pacheco, DO [address] [facility] [place] [address] 12/10/2022 Laboratory Laboratory Processing [facility], [facility] Mobile Home Draw [address] [place] [address] 12/11/2022 [facility] [address] [facility] [address] 12/14/2022 Office Visit Pulmonary Alisha Carrero CRNP [address] [place] [address] 12/16/2022 Telemedicine Psychiatry Hugo Alcantara MD [address] [place] [address] 01/13/2023 Procedure Only Endoscopy Shaneka Santiago MD [address] [place] [address] 03/17/2023 PulmDiagnostic Pulmonary Function [facility], [address] [address] [facility] [address] Health Maintenance Due Date Last Done Comments [...] 02/16/2022 LUNG CANCER SCREENING - USE SMARTSET [id number] Completed 03/16/2022 Influenza Vaccine (FLU shot) Completed [...] filedocumented as of this encounter Care Teams Education Department Registrar Relationship Specialty Start Date End Date Roger Alexandra MD [address] [place] [address] PCP - General Family Medicine 12/29/19 documented as of this encounter
--- OUTSIDE RECORDS SUMMARY | 2023-07-25 04:24 | External Medical Summary ---
Author Name Unknown Address Unknown Organization K01:[facility] - [address] [place] [address] Laboratory Report Ordering Provider Test Date Status RONNIE DIAL 12/08/2022 13:59:06 Final Observation Date Value Abnormality Reference (Units ) Status Iron 12/08/2022 13:59:06 24 Below low normal 33-151 (ug/dL) Final Iron-binding capacity 12/08/2022 13:59:06 424 250-425 (ug/dL) Final Transferrin Sat % 12/08/2022 13:59:06 6 Below low normal 15-55 (%) Final Performing Location [facility] - [address] [place] [address]
--- OUTSIDE RECORDS SUMMARY | 2023-07-25 04:24 | External Medical Summary | Summary of Care ---
Author Name Unknown Organization [place] [address] Care Team Providers Care Shingle Packer Name Role Phone Roger Alexandra MD Primary Care Provider [phone] Reason for Visit * Reason Onset Date Comments Follow Up 12/09/2022 Test Results 12/09/2022 Encounter Details Date Type Department Care Team Description 12/09/2022 Telephone Cardiology, [facility] [address] [place] [address] Jerry Pacheco, 132 [facility] [place] [address] Follow Up; Test Results Allergies Active Allergy Reactions Severity Noted Date Comments Aspirin Unknown 12/12/2007 von Willebrand's disease Salicylates 03/01/2000 von Willebrand's disease documented as of this encounter (statuses as of 12/09/2022) Medications Medication Sig Dispensed Refills Start Date [...] bedtime. 30 Tablet 2 11/06/2022 Active Nystatin 558180 UNIT/GM External Powder (Nyamyc) apply to affected [...] GOLD 2017 classification ([facility]) 2.5 mg NEBULIZER PRN 03/10/2022 03/10/2023 Acti ve Albuterol Sulfate (Proventil) (5 MG/ML) 0.5% *conc* inhalation solution 2.5 mgIndications:Chronic hypoxemic respiratory failure (HCC),COPD, group D, by GOLD 2017 classification ([facility]) 2.5 mg NEBULIZER PRN 03/10/2022 03/10/2023 Acti ve documented as of this encounter (statuses as of 12/09/2022) Active Problems Problem Noted Date Decreased functional [...] as of this encounter (statuses as of 12/09/2022) Resolved Problems Problem Noted Date Resolved Date [...] as of this encounter (statuses as of 12/09/2022) Immunizations Name Administration Dates Next Due H1N1 [...] encounter Miscellaneous Notes * Telephone Encounter - Piedad Gandhi LPN - 12/09/2022 12:20 PM EST mychart sent to notify patient of recommendations. * Telephone Encounter - Jerry Pacheco DO - 12/09/2022 11:00 AM EST Cardiology nursing: Please call patient in follow-up of her lab work performed yesterday for evaluation of tachycardia. Her thyroid stimulating hormone was within normal limits. She has anemia, hemoglobin of 10.2, relatively stable compared to other recent historical hemoglobin levels. Iron studies reveal low iron level. I recommend that she starts an iron supplement, Vitron-C, tablet by mouth daily, a prescription wassent to her pharmacy, she may need to obtain this [id number]. With regards to her anemia, she is on long-term anticoagulation with Coumadin due to her history ofrecurrent strokes, and based on her records as reviewed yesterday, it would appear that this is an important medication for her. Given her respiratory status, I do not feel that she is a candidate for endoscopy. Will order a repeat CBC and iron studies to be completed 3 months.Orders entered. Jerry Pacheco DO Copy to PCP as an FYI. documented in this encounter Plan of Treatment Upcoming Encounters Date Type Specialty Care Team Description 12/10/2022 Laboratory Laboratory Processing [facility], [facility] Mobile Home Draw [address] [place] [address] 12/10/2022 Office Visit Sleep Disorders Mariposa Gay DO [address] [place] [address] 12/11/2022 [facility] [address] [facility] [place] [address] 12/14/2022 Office Visit Pulmonary Alisha Carrero CRNP [address] [place] [address] 12/16/2022 Telemedicine Psychiatry Hugo Alcantara MD [address] [place] [address] 01/13/2023 Procedure Only Endoscopy Shaneka Santiago MD [address] [place] [address] 03/11/2023 Office Visit Neurology Hina Lion PA-C [address] [place] [address] 03/17/2023 PulmDiagnostic Pulmonary Function [place], [address] [place] [address] 07/07/2023 Office Visit Cardiology Jerry Pacheco DO [address] [place] [address] Scheduled Orders Name Type Priority Associated Diagnoses Orde r Schedule CBC Lab Routine Other iron deficiency anemia Expected: 03/09/2023, Expires: 12/09/2023 IRON SCREEN, INCLUDING TIBC Lab Routine Other iron deficiency anemia Expected: 03/09/2023, Expires: 12/09/2023 Health Maintenance Due Date Last Done Comments [...] 02/16/2022 LUNG CANCER SCREENING - USE SMARTSET [id number] Completed 03/16/2022 Influenza Vaccine (FLU shot) Completed [...] Primary documented in this encounter Care Teams Shingle Packer Relationship Specialty Start Date End Date Roger Alexandra MD [address] [place] [address] PCP - General Family Medicine 12/29/19 documented as of this encounter
--- OUTSIDE RECORDS SUMMARY | 2023-07-25 04:24 | External Medical Summary | Summary of Care ---
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 [...] as of this encounter Visit Diagnoses Diagnosis Cognitive dysfunction- Primary Unspecified persistent mental disorders due to conditions classified elsewhere SIMA (generalized anxiety disorder) Generalized anxiety disorder MDD (major depressive disorder), recurrent episode, moderate (HCC) Major depressive disorder, recurrent episode, moderate documented in this encounter Care Teams Wood Barker Relationship Specialty Start Date End Date Roger Alexandra MD [address] [place] [address] PCP - General Family Medicine 12/29/19 documented as of this encounter
--- OUTSIDE RECORDS SUMMARY | 2023-07-25 04:24 | External Medical Summary | Summary of Care ---
Author Name Unknown Organization [place] [address] Care Team Providers Care Rx Specialist Name Role Phone Roger Alexandra MD Primary Care Provider [phone] Reason for Referral * Evaluate & Treat - Unlimited Visits (Within 10 days (routine)) - Authorized Specialty Diagnoses / Procedures Referred By Contlakia t Referred To Contact Sleep Medicine / Sleep Disorders Diagnoses Obstructive sleep apnea Roger Alexandra MD [address] [place] [address] Referral ID Status Reason Start Date Expiration Date Visits Requested Visits Authorized [id number] Authorized Specialty Services Required 12/03/2022 2 2 Question Answer GS CAD SLEEP MED ADULT REFERRAL Sleep Apnea Testing and Management Does the patient snore and/or gasp at night or has been told they stop breathing at night? Yes Referral Priority Within 10 days (routine) Encounter Details Date Type Department Care Team Description 12/03/2022 Telephone Family Practice [facility] [address] [place] [address] Roger Alexandra MD [address] [place] [address] Allergies Active Allergy Reactions Severity Noted Date Comments Aspirin Unknown 12/12/2007 von Willebrand's disease Salicylates 03/01/2000 von Willebrand's disease documented as of this encounter (statuses as of 12/03/2022) Medications Medication Sig Dispensed Refills Start Date End Date Status Warfarin Sodium 5 MG Oral Tablet (Coumadin)Indications :Paroxysmal atrial fibrillation (HCC) Take by mouth 1 Tablet in the evening. OR As directed by coumadin clinic. 90 Tablet 3 02/16/2022 Active oxygen IN GASIndications:Chroni c hypoxemic respiratory failure (HCC),COPD, group D, by GOLD 2017 classification ([facility]) Use 2 LPM at rest, 4 LPM [...] bedtime. 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 [address] [place] [address] 12/14/2022 Office Visit Pulmonary Alisha Carrero CRNP [address] [place] [address] 12/16/2022 Telemedicine Psychiatry Hugo Alcantara MD [address] [place] [address] 01/13/2023 Procedure Only Endoscopy Shaneka Santiago MD [address] [facility] [place] [address] 03/17/2023 PulmDiagnostic Pulmonary Function [place], Pft [address] [place] [address] Scheduled Orders Name Type Priority Associated Diagnoses [...] 02/16/2022 LUNG CANCER SCREENING - USE SMARTSET [id number] Completed 03/16/2022 Influenza Vaccine (FLU shot) Completed [...] disorder documented in this encounter Care Teams Rx Specialist Relationship Specialty Start Date End Date Roger Alexandra MD [facility] [place] [address] PCP - General Family Medicine 12/29/19 documented as of this encounter
--- OUTSIDE RECORDS SUMMARY | 2023-07-25 04:24 | External Medical Summary | Summary of Care ---
Author Name Unknown Organization [place] [address] Care Team Providers Care Jinrikisha [place] Name Role Phone Roger Alexandra MD Primary Care Provider [phone] Reason for Visit * Reason Comments Outpatient Testing Encounter Details Date Type Department Care Team Description 12/08/2022 Laboratory Laboratory, [facility] 132 [facility] [place] [address] [facility] 132 [facility] [place] [address] Sinus tachycardia; Other iron deficiency anemia Allergies Active Allergy Reactions Severity Noted Date [...] bedtime. 30 Tablet 2 11/06/2022 Active Nystatin 104407 UNIT/GM External Powder (Nyamyc) apply to affected [...] (HCC),COPD, group D, by GOLD 2017 classification ([facility]) 2.5 mg NEBULIZER PRN 03/10/2022 03/10/2023 Acti ve Albuterol Sulfate (Proventil) (5 MG/ML) 0.5% *conc* inhalation solution 2.5 mgIndications:Chronic hypoxemic respiratory failure (HCC),COPD, group D, by GOLD 2017 classification (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 0 06/01/2005 [...] Team Description 12/10/2022 Laboratory Laboratory Processing [facility] Mobile Home Draw [address] [facility] [address] 12/10/2022 Office Visit Sleep Disorders Mariposa Gay, [address] [facility] [place] [address] 12/11/2022 [facility] [address] [place] [address] 12/14/2022 Office Visit Pulmonary Alisha Carrero CRNP [address] [facility] [place] [address] 12/16/2022 Telemedicine Psychiatry Hugo Alcantara MD [address] [place] [address] 01/13/2023 Procedure Only Endoscopy Shaneka Santiago MD [address] [place] [address] 03/11/2023 Office Visit Neurology Hina Lion PA-C [address] [place] [place] [address] 03/17/2023 PulmDiagnostic Pulmonary Function [place], Pft [address] [place] [address] 07/07/2023 Office Visit Cardiology Jerry Pacheco DO [address] [facility] [place] [address] Pending Results Name Type Priority Associated Diagnoses Date /Time CBC Lab Routine Sinus tachycardia 12/08/2022 1:59 PM EST TSH WITH FREE T4 IF INDICATED Lab Routine Sinus tachycardia 12/08/2022 1:59 PM EST IRON SCREEN, INCLUDING TIBC Lab Routine Other iron deficiency anemia 12/08/2022 1:59 PM EST Health Maintenance Due Date Last [...] 02/16/2022 LUNG CANCER SCREENING - USE SMARTSET [id number] Completed 03/16/2022 Influenza Vaccine (FLU shot) Completed [...] of this encounter Visit Diagnoses Diagnosis Sinus tachycardia Other specified cardiac dysrhythmias Other iron deficiency anemia documented in this encounter Care Teams Jinrikisha [place] Relationship Specialty Start Date End Date Roger Alexandra MD [address] [place] [address] PCP - General Family Medicine 12/29/19 documented as of this encounter
--- OUTSIDE RECORDS SUMMARY | 2023-07-25 04:24 | External Medical Summary | Summary of Care ---
Author Name Unknown Organization [place] [address] Care Team Providers Care Snapper On Name Role Phone Roger Alexandra MD Primary Care Provider [phone] Reason for Visit * Reason Onset Date Comments Advice 10/22/2022 Re: sore mouth Encounter Details Date Type Department Care Team Description 10/22/2022 Tractor Operator Helper Telephone Family Practice [facility] [address] [place] [address] Yara Morris, cherry picker operator (Re: sore mouth) Allergies Active Allergy Reactions Severity Noted Date Comments Aspirin Unknown 12/12/2007 von Willebrand's disease Salicylates 03/01/2000 von Willebrand's disease documented as of this encounter (statuses as of 11/27/2022) Medications Medication Sig Dispensed Refills Start Date [...] Absorb Underwear 32 Each 2 2 Active Fluticasone-Salmet jose martin 115-21 MCG/ACT Inhalation Aerosol (Advair HFA) Inhale by mouth 2 Puffs in the morning AND 2 Puffs before bedtime. 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 120 Tablet 2 2 Active Albuterol Sulfate 0.63 MG/3ML Inhalation Nebulization Solution (Accuneb) Inhale 1 Vial (0.63 mg) via nebulizer every 4 hours as needed for Wheezing or Shortness of Breath. 540 mL 12 2 Active Nystatin 369686 UNIT/GM External Powder (Nyamyc) apply to affected area twice a day 15 g 1 2 11/18/19 23 Discontinued Mirtazapine 30 MG Oral Tablet (Remeron) Take by mouth 1 Tablet before bedtime. 30 Tablet 2 2 11/06/20 22 Discontinued(Ref ill) Baclofen 10 MG Oral Tablet (Lioresal)Indicati ons:Chronic bilateral low back pain without sciatica Take 1 Tablet (10 mg) by mouth 3 times a day as needed for Muscle spasms. 90 Tablet 0 2 11/24/19 23 Discontinued clonazePAM 0.5 MG Oral Tablet (KlonoPIN) Take 1 Tablet (0.5 mg) by mouth in the morning and 1 Tablet (0.5 mg) before bedtime. 60 Tablet 1 2 10/27/20 22 Discontinued Sulfamethoxazole-T rimethoprim 800-160 MG Oral Tablet (Bactrim DS) Take 1 Tablet by mouth in the morning and 1 Tablet before bedtime. Do all this for 3 days. Until gone. 6 Tablet 0 2 10/23/20 22 traMADol HCl 100 MG Oral TabletIndications: Chronic bilateral low back pain without sciatica take 1 tablet by mouth every 8 hours if needed for moderate pain to severe pain 90 Tablet 0 2 11/17/19 23 Discontinued(Ref ill) Hospital, Clinic, or Other Facility Administered Medication Ordered Dose Route Frequency Start Date End Date Status Albuterol Sulfate (Proventil) (2.5 MG/3ML) 0.083% inhalation solution 2.5 mgIndications:Chronic hypoxemic respiratory failure (HCC),COPD, group D, by GOLD 2017 classification ([facility]) 2.5 mg NEBULIZER PRN 03/10/2022 03/10/2023 Acti ve Albuterol Sulfate (Proventil) (5 MG/ML) 0.5% *conc* inhalation solution 2.5 mgIndications:Chronic hypoxemic respiratory failure (HCC),COPD, group D, by GOLD 2017 classification ([facility]) 2.5 mg NEBULIZER PRN 03/10/2022 03/10/2023 Acti ve documented as of this encounter (statuses as of 11/27/2022) Active Problems Problem Noted Date Decreased functional [...] as of this encounter (statuses as of 11/27/2022) Resolved Problems Problem Noted Date Resolved Date [...] 12/21/2008 Atrial septal aneurysm 02/04/2006 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 * Telephone Encounter - Jesus Bonilla MD - 10/23/2022 3:23 PM EST Use albuterol neb instead. I sent in prescription * Telephone Encounter - Airam Ramey LPN - 10/22/2022 3:20 PM EST When I spoke with the pt, she said her mouth is "a little sore" but that the burning in chest is her main concern. When she uses the nebulizer, her chest "caro." She said she always feels a heaviness in her chest, but this is different. She denies radiating pain accompanying the burning. She has been using the nebulizer for "a long time" with no change to the medication, but the burning in her chest following neb treatments is a new finding. I advised her to brush teeth, rinse, gargle after use of Advair. She doesn't believe it's the Advair-she feels it's the nebulizer causing the problems. * Telephone Encounter - Jesus Bonilla MD - 10/22/2022 3:06 PM EST Any sign of thrush? Can home nursing check? Unlikely her nebulized medications are causing soreness. More likely from her advair. Should be rinsing, gargling and brushing mouth after using her advair. * Telephone Encounter - Yara Morris RN - 10/22/2022 11:45 AM EST Patient has c/o nebulizer treatments burning the roof of her mouth and chest with use for past approx week. She denies any symptoms of thrush and reports that she has always rinsed her mouth after using inhaler or nebulizer. She reported that the hand held inhaler does not cause this burning sensation She has home health and [facility] nurse left a voicemail reporting that she has not been using nebulizerfor past 3 days due to complaints that it is burning. nurse is asking if there is any different nebulizer medication that would be appropriate to have the patient try? O2 sats are >90%, she is continuing to use O2 @ 5L but continues to c/o feeling dyspneic with minimal exertion. Dr. Bonilla, Please advise? Is there a different medication that patient could try? Next pul appt 12/02. Thank you documented in this encounter Plan of Treatment Upcoming Encounters Date Type Specialty Care Team Description 12/01/2022 Office Visit Pulmonary Alisha Carrero CRNP 132 [facility] [place] [address] 12/01/2022 Therapy Psychiatry Cha Champion, PhD [address] [place] [address] [place] [address] 12/10/2022 Laboratory Laboratory Processing [facility] Mobile Home Draw [address] [place] [address] 12/11/2022 Anticoagulation Pharmacy Telepharmacy, [facility] [address] [place] [address] 12/16/2022 Telemedicine Psychiatry Hugo Alcantara MD [address] [place] [address] 01/13/2023 Procedure Only Endoscopy Shaneka Santiago MD [address] [facility] [place] [address] 03/17/2023 PulmDiagnostic Pulmonary Function [place], P[address] [place] [address] Health Maintenance Due Date Last Done Comments [...] 02/16/2022 LUNG CANCER SCREENING - USE SMARTSET [id number] Completed 03/16/2022 Influenza Vaccine (FLU shot) Completed [...] filedocumented as of this encounter Care Teams Snapper On Relationship Specialty Start Date End Date Roger Alexandra MD [address] [place] [address] PCP - General Family Medicine 12/29/19 documented as of this encounter
--- OUTSIDE RECORDS SUMMARY | 2023-07-25 04:24 | External Medical Summary | Summary of Care ---
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 Or is this a follow up with established provider? First Available Comments Pt with stroke hx. Prior neurologist recently retired. Would like to establish care at [facility]. Reason for Visit * Reason Comments Test Results * - Authorized Specialty Diagnoses / Procedures Referred By Contac t Referred To Contact Referral ID Status Reason Start Date Expiration Date V isits Requested Visits Authorized [id number] Authorized 10/14/2023 999 999 Encounter Details Date Type Department Care Team Description 12/01/2022 Telemedicine Neuropsychology [facility] [address] [facility] [place] [address] Jeevan Choe, PhD [address] [facility] [place] [address] Major neurocognitive disorder, due to vascular disease, [...] (HCC),COPD, group D, by GOLD 2017 classification ([facility]) Use 2 LPM at rest, 4 [...] bedtime. 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 30 Tablet 2 11/06/2022 Active Nystatin 435369 UNIT/GM External Powder (Nyamyc) apply to affected [...] as of this encounter Progress Notes * Jeevan Choe, PhD - 12/02/2022 3:22 PM EST Patient location: HOME. I was in a hospital or clinic location. After connecting through [employer],patient was verified with two unique identifiers. Patient (or authorized legal wine sales representative) was then informed that this [...] Age: 62 Education: 9 years Evaluated by: Cha Champion, PhD (Neuropsychology Postdoctoral Resident); Jeevan Choe, PhD, ABN (Neuropsychologist) NEUROPSYCHOLOGY FEEDBACK NOTE Ms. Kimberly Kendall, presented for a neuropsychology feedback appointment to review the results, impressions, and recommendations of an evaluation that was conducted on 11/18/2022. Appointment was co-conducted by Drs. Choe and Jaycee. Patient was alone. Patient reported [...] Remeron, Ativan, Buspar (managed by Dr. Alcantara, [facility] psychiatry) but does not feel her current [...] a task, make sure that you have [id number] instructions that are easy to follow. Complete [...] with the help of an elder care supervisor public health nursing who understands many of the legal andfinancial issues associated with long-term elder care, and can advise the person about his/her options based on and individual's present situation. 8. Neuropsychology is available in the future as clinically indicated. Jeevan Choe, Ph.D., [facility] Neuropsychologist Service Time: 30 mins ([id number]) * Cha Champion, PhD - 12/01/2022 1:57 PM EST Note created in error. documented in this encounter Miscellaneous Notes * Addendum Note - Jeevan Choe, PhD - 12/03/2022 2:54 PM ESTAddended by: JEEVAN CHOE on: 12/03/2022 02:54 PM Modules accepted: Orders documented in this encounter Plan of Treatment Upcoming Encounters Date Type Specialty Care Team Description 12/08/2022 Office Visit Cardiology Jerry Pacheco, DO [address] [place] [address] 12/10/2022 Laboratory Laboratory [place] [facility] Mobile Home Draw [address] [place] [address] 12/11/2022 [facility] [address] [place] [address] 12/14/2022 Office Visit Pulmonary Alisha Carrero CRNP [address] [place] [address] 12/16/2022 Telemedicine Psychiatry Hugo Alcantara MD [address] [place] [address] 01/13/2023 Procedure Only Endoscopy Shaneka Santiago MD [address] [place] [address] 03/17/2023 PulmDiagnostic Pulmonary Function [place], Pft [address] [place] [address] Scheduled Referrals Name Type Priority Associated Diagnoses Orde r Schedule NEUROLOGY REFERRAL OP Referral Within 30 days (routine) Major neurocognitive disorder, due to vascular disease, without behavioral disturbance, mild MDD (major depressive disorder), recurrent severe, without psychosis (HCC) SIMA (generalized anxiety disorder) PTSD (post-traumatic stress disorder) Ordered: 12/03/2022 Health Maintenance Due Date Last [...] 02/16/2022 LUNG CANCER SCREENING - USE SMARTSET [id number] Completed 03/16/2022 Influenza Vaccine (FLU shot) Completed [...] disorder documented in this encounter Care Teams Cupola Repairer Relationship Specialty Start Date End Date Jeevan Alexandra MD [address] [place] [address] PCP - General Family Medicine 12/29/19 documented as of this encounter
--- OUTSIDE RECORDS SUMMARY | 2023-07-25 04:25 | External Medical Summary | Summary of Care ---
Author Name Unknown Organization [place] [address] Care Team Providers Care Rn Procedure Name Role Phone Jeevan Mclean MD Primary Care Provider [phone] Reason for Visit * Reason Comments eRx-Medication Refill Encounter Details Date Type Department Care Team Description 11/23/2022 Refill Family Practice [facility] [address] [place] [id number] Jeevan Mclean MD 132 [facility] [place] [address] Chronic bilateral low back pain without sciatica Allergies Active Allergy Reactions Severity Noted Date Comments Aspirin Unknown 12/12/2007 von Willebrand's disease Salicylates 03/01/2000 von Willebrand's disease documented as of this encounter (statuses as of 11/24/2022) Medications Medication Sig Dispensed Refills Start Date End Date Status Warfarin Sodium 5 MG Oral Tablet (Coumadin)Indicatio ns:Paroxysmal atrial fibrillation (HCC) Take by mouth 1 Tablet in the evening. OR As directed by coumadin clinic. 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 30 Tablet 2 11/06/2022 Active Nystatin 598455 UNIT/GM External Powder (Nyamyc) apply to affected area twice a day 15 g 1 11/18/2022 Active Baclofen 10 MG Oral Tablet (Lioresal)Indicatio ns:Chronic bilateral low back pain without sciatica take 1 tablet by mouth three times a day if needed for muscle spasm 90 Tablet 0 11/24/2022 Active Baclofen 10 MG Oral Tablet (Lioresal)Indicatio [...] (HCC),COPD, group D, by GOLD 2017 classification ([facility]) 2.5 mg NEBULIZER PRN 03/10/2022 03/10/2023 Acti ve Albuterol Sulfate (Proventil) (5 MG/ML) 0.5% *conc* inhalation solution 2.5 mgIndications:Chronic hypoxemic respiratory failure (HCC),COPD, group D, by GOLD 2017 classification ([facility]) 2.5 mg NEBULIZER PRN 03/10/2022 03/10/2023 Acti ve documented as of this encounter (statuses as of 11/24/2022) Active Problems Problem Noted Date Decreased functional [...] as of this encounter (statuses as of 11/24/2022) Resolved Problems Problem Noted Date Resolved Date [...] 02/04/2006 12/21/2008 Atrial septal aneurysm 02/04/2006 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 0 06/01/2005 [...] as of this encounter (statuses as of 11/24/2022) Immunizations Name Administration Dates Next Due H1N1 [...] Telephone Encounter - Jeevan Mclean MD - 11/24/2022 10:15 AM ESTSigned Prescriptions: Disp Refills Baclofen 10 MG Oral Tablet (Lioresal) 90 Tab*0 Sig: take 1 tablet by mouth three times a day if needed for muscle spasm Authorizing Provider: JEEVAN MCLEAN * Telephone Encounter - Elsa Solo LPN - 11/24/2022 7:59 AM ESTPending Prescriptions: Disp Refills Baclofen 10 MG Oral Tablet [Pharmacy Med N*90 Tab*0 Sig: take 1 tablet by mouth three times a day if needed for muscle spasm * Telephone Encounter - Elsa Solo LPN - 11/24/2022 7:58 AM EST Did you pend patient's preferred pharmacy and medication before forwarding?yes [facility]acy: [facility] #[id number] Pending Prescriptions: Disp Refills Baclofen 10 MG Oral Tablet (Lioresal) [Ph*90 Tab*0 Sig: take 1 tablet by mouth three times a day if needed for muscle spasm Last Visit: 09/30/2022 (in office), 03/14/2021 (telemedicine) Next Visit: Visit date not found If no future appointments scheduled, and last appointment is greater than a year ago, please schedule patient for a follow-up appointment Last date the medication was ordered: 09/24/22 Is this request for a controlled substance?No Urine Drug Screen: Results for orders placed [...] found in Results Review. Patient Phone Numbers [email or web address] [phone] Labs: Lab Results Component Value Date/Time CREAT 0.9 10/23/2022 09:53 AM CREAT 0.77 11/21/2021 12:00 AM CREAT 0.7 10/17/2020 03:40 PM POTASSIUM 4.6 10/23/2022 09:53 AM POTASSIUM 2.8 (A) 11/21/2021 12:00 AM POTASSIUM 4.6 10/17/2020 03:40 PM TSH 3.40 12/05/2021 06:33 AM TSH 0.66 12/29/2019 10:22 AM LDLCALC 111 08/24/2018 04:39 AM LDLCALC 123 05/01/2011 11:39 AM LDLDIRECT 138 (H) 02/14/2015 09:27 AM ALT 6 (L) 12/29/2019 10:22 AM HGBA1C 5.8 08/24/2018 04:39 AM HGBA1C 5.7 04/19/2014 12:08 PM * Telephone Encounter - Octavia Zamora - 11/23/2022 5:18 PM ESTPending Prescriptions: Disp Refills Baclofen 10 MG Oral Tablet [Pharmacy Med N*90 Tab*0 Sig: take 1 tablet by mouth three times a day if needed for muscle spasm documented in this encounter Plan of Treatment Upcoming Encounters Date Type Specialty Care Team Description 11/26/2022 Cardiac Studies Cardiac Studies 12/01/2022 Office Visit Pulmonary Alisha Carrero CRNP 132 [facility] [place] [address] 12/01/2022 Therapy Psychiatry Cha Champion, PhD [address] [place] [address] [place] [address] 12/10/2022 Laboratory Laboratory Processing [facility] [place] [facility] Draw [address] [place] [address] 12/11/2022 [facility] [address] [place] [address] 12/16/2022 Telemedicine Psychiatry Hugo Alcantara MD [address] [place] [address] 01/13/2023 Procedure Only Endoscopy Shaneka Santiago MD 132 [facility] [place] [address] 03/17/2023 PulmDiagnostic Pulmonary Function [place], [facility] [address] [place] [address] Health Maintenance Due Date Last Done Comments [...] 11/12/2025 11/12/2020, 05/22/2013, 08/21/2011, Additional history exists LUNG CANCER SCREENING - USE SMARTSET 58624 Completed 03/16/2022 Influenza Vaccine (FLU shot) Completed [...] sciatica documented in this encounter Care Teams Rn Procedure Relationship Specialty Start Date End Date Jeevan Mclean MD [address] [place] [address] PCP - General Family Medicine 12/29/19 documented as of this encounter
--- OUTSIDE RECORDS SUMMARY | 2023-07-25 04:25 | External Medical Summary | Summary of Care ---
Author Name Unknown Organization [place] [address] Care Team Providers Care Chain Link Fence Installer Name Role Phone Roger Alexandra MD Primary Care Provider [phone] Reason for Visit * Reason Onset Date Comments Medication Refill 11/06/2022 Encounter Details Date Type Department Care Team Description 11/06/2022 Refill [facility] [address] [place] [address] Hugo Alcantara MD [address] [place] [address] Allergies Active Allergy Reactions Severity Noted Date Comments Aspirin Unknown 12/12/2007 von Willebrand's disease Salicylates 03/01/2000 von Willebrand's disease documented as of this encounter (statuses as of 11/06/2022) Medications Medication Sig Dispensed Refills Start Date End Date Status Warfarin Sodium 5 MG Oral Tablet (Coumadin)Indication s:Paroxysmal atrial fibrillation (HCC) Take by mouth 1 Tablet in the evening. OR As directed by coumadin clinic. 90 Tablet 3 02/16/2022 Active Nystatin 593053 UNIT/GM External Powder (Mdamyc) apply to affected area twice a day 15 g 1 05/19/2022 Active oxygen IN GASIndications:Chron ic hypoxemic respiratory [...] Fluticasone-Salmeter ol 115-21 MCG/ACT Inhalation Aerosol (Advair HFA) Inhale by mouth 2 Puffs in the morning AND 2 Puffs before bedtime. 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:CO PD, group D, by GOLD 2017 classification ([facility]),Chronic hypoxemic respiratory failure ([facility]) Use with nebulized meds 1 Each 0 09/16/2022 Active Full Kit Nebulizer SetIndications:COPD, group D, by GOLD 2017 classification ([facility]),Chronic hypoxemic respiratory failure ([facility]) Use with nebulizer 1 Each 0 09/16/2022 Active Baclofen 10 MG Oral Tablet (Lioresal)Indication s:Chronic bilateral low back pain without sciatica Take 1 Tablet (10 mg) by mouth 3 times a day as needed for Muscle spasms. 90 Tablet 0 09/24/2022 Active ProAir HFA 108 (90 Base) MCG/ACT [...] before bedtime. 120 Tablet 2 10/21/2022 Active traMADol HCl 100 MG Oral TabletIndications:Ch ronic bilateral low back pain without sciatica take 1 tablet by mouth every 8 hours if needed for moderate pain to severe pain 90 Tablet 0 10/21/2022 Active Albuterol Sulfate 0.63 MG/3ML Inhalation [...] at bedtime. 30 Tablet 2 11/06/2022 Active Mirtazapine 30 MG Oral Tablet (Remeron) Take by mouth 1 Tablet before bedtime. 30 Tablet 2 08/10/2022 Discontinue d(Refill) Hospital, Clinic, or Other Facility Administered Medication Ordered Dose Route Frequency Start Date End Date Status Albuterol Sulfate (Proventil) (2.5 MG/3ML) 0.083% inhalation solution 2.5 mgIndications:Chronic hypoxemic respiratory failure (HCC),COPD, group D, by GOLD 2017 classification ([facility]) 2.5 mg NEBULIZER PRN 03/10/2022 03/10/2023 Acti ve Albuterol Sulfate (Proventil) (5 MG/ML) 0.5% *conc* inhalation solution 2.5 mgIndications:Chronic hypoxemic respiratory failure (HCC),COPD, group D, by GOLD 2017 classification ([facility]) 2.5 mg NEBULIZER PRN 03/10/2022 03/10/2023 Acti ve documented as of this encounter (statuses as of 11/06/2022) Active Problems Problem Noted Date Decreased functional [...] as of this encounter (statuses as of 11/06/2022) Resolved Problems Problem Noted Date Resolved Date [...] inactive term Benign neoplasm of colon 10/06/2010 02/14/2 020 Overview: adenomatous/repeat colonoscopy in 1 yr [...] as of this encounter (statuses as of 11/06/2022) Immunizations Name Administration Dates Next Due H1N1 [...] encounter Miscellaneous Notes * Telephone Encounter - Kamini Henderson MD - 11/06/2022 11:29 AM ESTSigned Prescriptions: Disp Refills Mirtazapine 30 MG Oral Tablet (Remeron) 30 Tab*2 Sig: Take 1 Tablet by mouth at bedtime. Authorizing Provider: KAMINI HENDERSON * Telephone Encounter - Dov Navarrete RN - 11/06/2022 11:20 AM EST Patient calling for refill on Mirtazapine. Medication was last filled on 08/10 with 2 refills. Patient last seen on 10/12 with return appointment scheduled for 12/16. Patient had 0 cancelled appointments and 0 NO SHOW appointments. documented in this encounter Plan of Treatment Upcoming Encounters Date Type Specialty Care Team Description 11/06/2022 Home Visit Family Medicine Fawn Godfrey, [facility] Other Sports Official [address] [place] [address] 11/12/2022 Laboratory Laboratory [place] [facility] [place] [facility] Draw [address] [place] [address] 11/13/2022 [facility] [address] [place] [address] 11/18/2022 Therapy Psychiatry Roger Drake, PhD [address] [place] [address] 11/26/2022 Cardiac Studies Cardiac Studies 12/01/2022 Office Visit Pulmonary Alisha Carrero CRNP [address] [place] [address] 12/16/2022 Telemedicine Psychiatry Hugo Alcantara MD [address] [place] [address] 01/13/2023 Procedure Only Endoscopy Shaneka Santiago MD [address] [place] [address] 03/17/2023 PulmDiagnostic Pulmonary Function [place], [facility] [address] [place] [address] Health Maintenance Due Date Last Done Comments [...] exists LUNG CANCER SCREENING - USE SMARTSET 46828 Completed 03/16/2022 Influenza Vaccine (FLU shot) Completed [...] filedocumented as of this encounter Care Teams Chain Link Fence Installer Relationship Specialty Start Date End Date Roger Alexandra MD [address] [place] [address] PCP - General Family Medicine 12/29/19 documented as of this encounter
--- OUTSIDE RECORDS SUMMARY | 2023-07-25 04:25 | External Medical Summary ---
Author Name Unknown Address Unknown Organization [id number][facility] [address] [place] [address] Laboratory Report Ordering Provider Test Date Status SUMAN STANFORD 11/05/2022 08:40:00 Final Observation Date Value Abnormality Reference (Units ) Status PT 11/05/2022 08:40:00 41.4 Above high normal 11 .6-15.2 (seconds) Final INR 11/05/2022 08:40:00 4.3 Above high normal 0. 8-1.2 Final Performing Location [facility] [place] [facility] [address] [place] [address]
--- OUTSIDE RECORDS SUMMARY | 2023-07-25 04:25 | External Medical Summary | Summary of Care ---
Author Name Unknown Organization [place] [address] Care Team Providers Care Monologist Name Role Phone Roger Alexandra MD Primary Care Provider [phone] [phone] Reason for Visit * Reason Onset Date Comments Medication Refill 11/17/2022 Encounter Details Date Type Department Care Team Description 11/17/2022 Refill Family Practice [facility] [address] [place] [address] Roger Alexandra MD 132 [facility] [place] [address] Chronic bilateral low back pain without sciatica [...] COPD, group D, by GOLD 2017 classification ([facility]),Chronic hypoxemic respiratory failure (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),Chronic hypoxemic respiratory failure ([facility]) Use with nebulizer 1 Each 0 2 Active Baclofen 10 MG Oral Tablet (Lioresal)Indicati ons:Chronic bilateral low back pain without sciatica Take 1 Tablet (10 mg) by mouth 3 times a day as needed for Muscle spasms. 90 Tablet 0 2 Active ProAir HFA 108 (90 [...] of Breath. 540 mL 12 2 Active LORazepam 0.5 MG Oral Tablet (Ativan) Take 1 Tablet (0.5 mg) by mouth every 8 hours as needed for Anxiety. 90 Tablet 1 2 Active Mirtazapine 30 MG Oral Tablet (Remeron) Take 1 Tablet by mouth at bedtime. 30 Tablet 2 2 Active traMADol HCl 100 MG Oral TabletIndications: Chronic bilateral low back pain without sciatica take 1 tablet by mouth every 8 hours if needed for moderate pain to severe pain 90 Tablet 0 3 Active Nystatin 744281 UNIT/GM External Powder (Nyamyc) apply to affected area twice a day 15 g 1 2 11/18/19 23 Discontinued traMADol HCl 100 MG Oral TabletIndications: Chronic [...] (HCC),COPD, group D, by GOLD 2017 classification ([facility]) 2.5 mg NEBULIZER PRN 03/10/2022 03/10/2023 Acti ve Albuterol Sulfate (Proventil) (5 MG/ML) 0.5% *conc* inhalation solution 2.5 mgIndications:Chronic hypoxemic respiratory failure (HCC),COPD, group D, by GOLD 2017 classification ([facility]) 2.5 mg NEBULIZER PRN 03/10/2022 03/10/2023 Acti [...] Telephone Encounter - Blanche Polk CPhT - 11/24/2022 9:58 AM EST Pt calling regarding her Tramadol. Called the pharmacy and they said the 100 MG is not in stock at the moment, and is wondering if a rx can be sent for the 50 MG- twice a day. Please advise. Thank you, Blanche Polk [facility] 11/24/2022, 10:01 AM * Telephone Encounter - Alonso Eastman MD - 11/18/2022 5:18 PM ESTSigned Prescriptions: Disp Refills traMADol HCl 100 MG Oral Tablet 90 Tab*0 Sig: take 1 tablet by mouth every 8 hours if needed for moderate pain to severe painAuthorizing Provider: ALONSO EASTMAN * Telephone Encounter - Alvarez Hope [facility] - 11/18/2022 3:36 PM ESTPending Prescriptions: Disp Refills traMADol HCl 100 MG Oral Tablet 90 Tab*0 Sig: take 1 tablet by mouth every 8 hours if needed for moderate pain to severe pain * Telephone Encounter - Alvarez Hope [facility] - 11/18/2022 3:35 PM EST I have reviewed the patients controlled substance dispensing history in the Prescription Drug Monitoring Program in compliance with the [place] regulations before prescribing a controlled substance. PDMP checked on 11/18/2022. Pending Prescriptions: Disp Refills traMADol HCl 100 MG Oral Tablet 90 Tab*0 Sig: take 1 tablet by mouth every 8 hours if needed for moderate pain to severe pain Last Visit: 09/30/2022 (in office), 03/14/2021 (telemedicine) Next Visit: Visit date not found Date medication was last filled: 10/23/2022 Date medication is due for refill: 11/21/2022 [facility]: [facility] #[id number] Is this request for a controlled [...] Review. Please approve if appropriate. Thanks, Alvarez Hope Pharm.D. Clinical Pharmacist [facility] [phone] 11/18/2022, 3:35 PM * Telephone Encounter - DANIEL Aragon Tech - 11/17/2022 10:16 AM EST Did you pend patient's preferred pharmacy and medication before forwarding?yes Pharmacy: [facility] #[id number] Pending Prescriptions: Disp Refills traMADol HCl 100 MG Oral Tablet 90 Tab*0 Sig: take 1 tablet by mouth every 8 hours if needed for moderate pain to severe pain Last Visit: 09/30/2022 (in office), 03/14/2021 (telemedicine) Next Visit: Visit date not found If no future appointments scheduled, and last appointment is greater than a year ago, please schedule patient for a follow-up appointment Last date the medication was ordered: 10/21/2022 Is this request for a controlled substance?Yes, What was the last refill date 10/21 w/ quantity 90 and dosage 100 mg and Urine Drug Screen Not completed [...] Visit Pulmonary Alisha Carrero CRNP [address] [address] 12/01/2022 Therapy Psychiatry Cha Champion, PhD [address] [place] [address] [place] [address] 12/10/2022 Laboratory Laboratory Processing [facility] Draw [address] [place] [address] 12/11/2022 [facility] [address] [place] [address] 12/16/2022 Telemedicine Psychiatry Hugo Alcantara MD [address] [place] [address] 01/13/2023 Procedure Only Endoscopy Shaneka Santiago MD 132 [place] [address] 03/17/2023 PulmDiagnostic Pulmonary Function [facility] 132 [facility] [place] [address] Health Maintenance Due Date Last Done Comments [...] exists LUNG CANCER SCREENING - USE SMARTSET 04642 Completed 03/16/2022 Influenza Vaccine (FLU shot) Completed [...] sciatica documented in this encounter Care Teams Monologist Relationship Specialty Start Date End Date Roger Alexandra MD [facility] [place] [address] PCP - General Family Medicine 12/29/19 documented as of this encounter
--- OUTSIDE RECORDS SUMMARY | 2023-07-25 04:25 | External Medical Summary | Summary of Care ---
Author Name Unknown Organization [facility] [place] [address] Care Team Providers Care Sales Engineer Account Manager Name Role Phone Roger Alexandra MD Primary Care Provider [phone] [phone] Reason for Visit * Reason Comments Dosage Adjustment Via Phone (anticoag Cl inic) Encounter Details Date Type Department Care Team Description 11/05/2022 Anticoagulation Pharmacy Call Center [address] [place] [address] [facility] [address] 60 [facility] [place] [address] ad terminal makeup operator current use 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* Allergies Active Allergy Reactions Severity Noted Date Comments Aspirin Unknown 12/12/2007 von Willebrand's disease Salicylates 03/01/2000 von Willebrand's disease documented as of this encounter (statuses as of 11/05/2022) Medications Medication Sig Dispensed Refills Start Date End Date Status Warfarin Sodium 5 MG Oral Tablet (Coumadin)Indications :Paroxysmal atrial fibrillation (HCC) Take by mouth 1 Tablet in the evening. OR As directed by coumadin clinic. 90 Tablet 3 02/16/2022 Active Nystatin 590800 UNIT/GM External Powder (Nyamyc) apply to affected area twice a day 15 g 1 05/19/2022 Active oxygen IN GASIndications:Chroni c hypoxemic respiratory 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 1 Each 0 2022 Active Isosorbide Mononitrate ER 30 MG Oral Tablet Extended Release 24 Hour (Imdur) take 1 tablet by mouth daily 30 Tablet 5 07/28/2022 Active Mirtazapine 30 MG Oral Tablet (Remeron) Take by mouth 1 Tablet before bedtime. 30 Tablet 2 08/10/2022 Active guaiFENesin ER 600 MG Oral Tablet [...] bedtime. 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 90 Tablet 1 10/27/2022 Active Hospital, Clinic, or Other Facility Administered [...] [facility]) 2.5 mg NEBULIZER PRN 03/10/2022 03/10/2023 Acti ve documented as of this encounter (statuses as of 11/05/2022) Active Problems Problem Noted Date Decreased functional [...] as of this encounter (statuses as of 11/05/2022) Resolved Problems Problem Noted Date Resolved Date [...] as of this encounter (statuses as of 11/05/2022) Immunizations Name Administration Dates Next Due H1N1 [...] as of this encounter Progress Notes * Luis Nava, clinical data analyst - 11/05/2022 2:42 PM EST Contacts Type Contact Phone/Fax 11/05/2022 02:38 PM EST Phone (Outgoing) Kimberly Kendall (Self) [phone] (M) Patient Findings Negatives: Signs/symptoms of thrombosis, [...] date communicated as noted by Pharmacist: Yes and MyG sent Luis Nava CPhT 11/05/2022, 2:42 PM * Kim Mercado RP - 11/05/2022 11:29 AM EST Images from the original note were not included. Coumadin Clinic (region specific) Current Warfarin Dose As of 11/05/2022 Warfarin maintenance plan: 5 mg (5 mg x 1) every day; Starting 11/05/2022 INR Result As of 11/05/2022 INR goal: 2.0-3.0 INR used for dosin.3 (11/05/2022) Warfarin Plan As of 11/05/2022 Full warfarin instructions: 11/05: Hold; 11/06: Hold; Otherwise 5 mg every day; Starting 11/05/2022 Next INR check: 11/12/2022 Repeat PT/INR in 1 week(s) Weekly dose: not changed Additional Dosing Information: Description [facility] Also sent MyG after trying to call 01/13/23 [employer] to contact patient with dose instructions as noted. Kim Mercado RPh 11/05/2022, 11:30 AM documented in this encounter Plan of Treatment Upcoming Encounters Date Type Specialty Care Team Description 11/06/2022 Home Visit Family Medicine Fawn Godfrey, [facility] Silver Designer [address] [place] [address] 11/13/2022 [facility]ticoagulation [facility] [place] [address] [address] [facility] [address] 11/18/2022 Therapy Psychiatry Roger Drake, PhD [address] [place] [address] 11/26/2022 Cardiac Studies Cardiac Studies 12/01/2022 Office Visit Pulmonary Alisha Carrero CRNP [address] [place] [address] 12/16/2022 Telemedicine Psychiatry Hugo Alcantara MD [address] [place] [address] 01/13/2023 Procedure Only Endoscopy Shaneka Santiago MD [address] [place] [address] 03/17/2023 PulmDiagnostic Pulmonary Function [place], [facility]ft 132 [place] [address] Health Maintenance Due Date Last Done Comments [...] exists LUNG CANCER SCREENING - USE SMARTSET [address]47[address] Completed 03/16/2022 Influenza Vaccine (FLU shot) Completed [...] as of this encounter Visit Diagnoses Diagnosis care home current use 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- Primary documented in this encounter Care Teams Sales Engineer Account Manager Relationship Specialty Start Date End Date Roger Alexandra MD [address] [place] [address] PCP - General Family Medicine 12/29/19 documented as of this encounter
--- OUTSIDE RECORDS SUMMARY | 2023-07-25 04:25 | External Medical Summary ---
Author Name Unknown Address Unknown Organization [facility] [address] [place] [address] Laboratory Report Ordering Provider Test Date Status SUMAN STANFORD 10/30/2022 12:20:00 Final Observation Date Value Abnormality Reference (Units ) Status PT 10/30/2022 12:20:00 25.8 Above high normal 11 .6-15.2 (seconds) Final INR 10/30/2022 12:20:00 2.3 Above high normal 0. 8-1.2 Final Performing Location [facility] [address] [place] [address]
--- OUTSIDE RECORDS SUMMARY | 2023-07-25 04:25 | External Medical Summary | Summary of Care ---
Author Name Unknown Organization [place] [address] Care Team Providers Care Head Of History Name Role Phone Roger Alexandra MD Primary Care Provider [phone] [phone] Reason for Visit * Reason Comments Dosage Adjustment Via Phone (anticoag Cl inic) Encounter Details Date Type Department Care Team Description 11/20/2022 Anticoagulation Pharmacy Call Center [address] [facility] [place] [address] [facility] [address] [place] [address] Anticoagulation management encounter* Allergies Active Allergy Reactions Severity Noted Date Comments Aspirin Unknown 12/12/2007 von Willebrand's disease Salicylates 03/01/2000 von Willebrand's disease documented as of this encounter (statuses as of 11/20/2022) Medications Medication Sig Dispensed Refills Start Date [...] bedtime. 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 30 Tablet 2 11/06/2022 Active traMADol HCl 100 MG Oral TabletIndications:Chr onic bilateral low back pain without sciatica take 1 tablet by mouth every 8 hours if needed for moderate pain to severe pain 90 Tablet 0 11/18/2022 Active Nystatin 448915 UNIT/GM External Powder ([facility]) apply to affected area twice a day 15 g 1 11/18/2022 Active Hospital, Clinic, or Other Facility Administered [...] as of this encounter (statuses as of 11/20/2022) Active Problems Problem Noted Date Decreased functional [...] as of this encounter (statuses as of 11/20/2022) Resolved Problems Problem Noted Date Resolved Date [...] as of this encounter (statuses as of 11/20/2022) Immunizations Name Administration Dates Next Due H1N1 [...] Progress Notes * Kim Juarez, RUFINA - 11/20/2022 12:04 PM EST Contacts Type Contact Phone/Fax 11/20/2022 12:01 PM EST Phone (Outgoing) Kimberly Kendall (Self) [phone] (M) Left Message MYG also sent Advised patient to contact Anticoagulation Clinic if any unusual bruising or bleeding, recent illness, changes in medication, or questions/concerns. PT/INR results, Coumadin dose instructions, and next PT/INR date communicated as noted by Pharmacist: Yes RUFINA Vela 11/20/2022, 12:04 PM * Kim Mercado RPh - 11/20/2022 9:52 AM EST Coumadin Clinic (region specific) Current Warfarin Dose As of 11/20/2022 Warfarin maintenance plan: 5 mg (5 mg x 1) every day; Starting 11/20/2022 INR Result As of 11/20/2022 INR goal: 2.0-3.0 INR used for dosin.3 (11/19/2022) Warfarin Plan As of 11/20/2022 Full warfarin instructions: 5 mg every day; Starting 11/20/2022 No change documented: Kim Mercado RPh Next INR check: 12/10/2022 Repeat PT/INR in 2 week(s) Weekly dose: not changed Additional Dosing Information: Description [facility] Also sent MyG after trying to call 01/13/23 [employer] to contact patient with dose instructions as noted. Kim Mercado RPh 11/20/2022, 9:52 AM documented in this encounter Plan of Treatment Upcoming Encounters Date Type Specialty Care Team Description 11/26/2022 Cardiac Studies Cardiac Studies 12/01/2022 Office Visit Pulmonary Alisha Carrero CRNP [address] [place] [address] 12/01/2022 Therapy Psychiatry Cha Champion, PhD [address] [place] [address] [place] [address] 12/10/2022 Laboratory Laboratory Processing [facility] [address] [facility] [id number] 12/16/2022 Telemedicine Psychiatry Hugo Alcantara MD [address] [place] [address] 01/13/2023 Procedure Only Endoscopy Shaneka Santiago MD [address] [place] [address] 03/17/2023 PulmDiagnostic Pulmonary Function West, Pft [address] [facility] [address] Health Maintenance Due Date Last Done Comments [...] exists LUNG CANCER SCREENING - USE SMARTSET 29232 Completed 03/16/2022 Influenza Vaccine (FLU shot) Completed [...] monitoring documented in this encounter Care Teams Head Of History Relationship Specialty Start Date End Date Roger Alexandra MD [address] [place] [address] PCP - General Family Medicine 12/29/19 documented as of this encounter
--- OUTSIDE RECORDS SUMMARY | 2023-07-25 04:25 | External Medical Summary | Summary of Care ---
Author Name Unknown Organization [place] [address] Care Team Providers Care Tapper Balance Wheel Screw Hole Name Role Phone Roger Alexandra MD Primary Care Provider [phone] [phone] Reason for Visit * Reason Onset Date Comments Advice 10/16/2022 case management 10/16/2022 Encounter Details Date Type Department Care Team Description 10/16/2022 Gas Engine Mechanic Telephone Family [facility] [address] [place] [address] Yara Morris, greenhouse florist; case management Allergies Active Allergy Reactions Severity Noted Date Comments Aspirin Unknown 12/12/2007 von Willebrand's disease Salicylates 03/01/2000 von Willebrand's disease documented as of this encounter (statuses as of 11/18/2022) Medications Medication Sig Dispensed Refills Start Date End Date Status Warfarin Sodium 5 MG Oral Tablet (Coumadin)Indications :Paroxysmal atrial fibrillation (HCC) Take by mouth 1 Tablet in the evening. OR As directed by coumadin clinic. 90 Tablet 3 02/16/2022 Active Nystatin 609418 UNIT/GM External Powder (Nyamyc) apply to affected [...] bedtime. 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 D, by GOLD 2017 classification ([facility] [...] BEFORE BEDTIME 60 Capsule 5 10/05/2022 Active Hospital, Clinic, or Other Facility Administered [...] as of this encounter (statuses as of 11/18/2022) Active Problems Problem Noted Date Decreased functional [...] as of this encounter (statuses as of 11/18/2022) Resolved Problems Problem Noted Date Resolved Date [...] defect 02/04/2006 12/21/2008 Atrial septal aneurysm 02/04/2006 02/06/200 9 terminal clerk current use of anticoagulant [...] as of this encounter (statuses as of 11/18/2022) Immunizations Name Administration Dates Next Due H1N1 [...] Telephone Encounter - Yara Morris RN - 10/16/2022 11:[address] Alexandra, please see note below, would you want to make any change in inhaled meds? Or defer to pulm for that? Thank you! * Telephone Encounter - Yara Morris RN - 10/16/2022 11:39 AM EST Gas Engine Mechanic Progress Note: Date: 09/29/22 Current Patient Tier: 3 Assessment: Case Management Assessment Is this call for a hospital, senior living or rehab facility discharge to home? no Review of Current goals: Connected with patient via telephone. Pt. Noted the following: She continues to have dyspnea on exertion, O2 sats 93- 95% at rest. She is continuing to use 5 LPM of oxygen. Denies a cough, but is having wheezing. She feels like the albuterol nebulizer and hand inhaler burn her lungs and the roof of her mouth with use. She has no white patches or sores in mouth. Had a nosebleed last weekend, is fearful of taking her warfarin daily since her INR "is all over the place". If she takes every other day goes low. She continues to work with [facility] on this. She had appt with Dr. Alcantara who discontinued gabapentin, hydroxyzine and lorazapam. She is now on Clonazepam 0.5 mg BID and feels this is not effective. Reporting her anxiety is unbearable during the daytime. She would like to try taking a third dose duringthe day to see if that helps. Her preacher yesterday and she is tearful on the phone osmin tate about him. He was involved in her life since she was 8 years old. PCP office has been working with [facility] and they should have everything they need to get her the hospital bed that she ispatiently waiting on. She thinks Home health PT and long-term may be done next week, unsure. Discussed the following patient-centered CM goals with the patient during this discussion: -Activity: Patient will increase activity or maintain level as tolerated -Status: On Track patient activity is at baseline. -Prevention: Prevent admission/readmission -Status: On Track patient aware of symptoms to monitor and report that are red flags. -SAFETY: Prevent falls or injuries -Status: On Track Has had no injuries or falls since las CM encounter. Plan for Future Contacts: Plan to follow up in a month to check progress on the following goals/needs cardio-pulmonary status, Noting that contacts from the following parties will occur this week: [facility] and mobile lab as additional contacts per workflow. Advancement/Closure Plan: CM Plan : Keep patient at current Tier with reassessment per workflow. Patient provided CM contact information and encouraged to call with any changes in condition. Yara Morris RN Outpatient Case Management documented in this encounter Plan of Treatment Upcoming Encounters Date Type Specialty Care Team Description 11/19/2022 Laboratory Laboratory Processing [facility] Mobile Home Draw [address] [facility] [address] 11/20/2022 Anticoagulation Pharmacy Telepharmacy, [facility] [address] [facility] [place] [address] 11/26/2022 Cardiac Studies Cardiac Studies 12/01/2022 Office Visit Pulmonary Alisha Carrero CRNP 132 [facility] [place] [address] 12/16/2022 Telemedicine Psychiatry Hugo Alcantara MD [address] [facility] [place] [address] 01/13/2023 Procedure Only Endoscopy Shaneka Santiago MD 132 [facility] [place] [address] 03/17/2023 PulmDiagnostic Pulmonary Function West, Pft [address] [place] [address] Health Maintenance Due Date Last Done Comments [...] exists LUNG CANCER SCREENING - USE SMARTSET [address]56[address] Completed 03/16/2022 Influenza Vaccine (FLU shot) Completed [...] filedocumented as of this encounter Care Teams Tapper Balance Wheel Screw Hole Relationship Specialty Start Date End Date Roger Alexandra MD [address] [place] [address] PCP - General Family Medicine 12/29/19 documented as of this encounter
--- OUTSIDE RECORDS SUMMARY | 2023-07-25 04:25 | External Medical Summary ---
Author Name Unknown Address Unknown Organization K0G[facility] [address] [place] [address] Laboratory Report Ordering Provider Test Date Status SUMAN STANFORD 11/12/2022 09:57:00 Final Observation Date Value Abnormality Reference (Units ) Status PT 11/12/2022 09:57:00 17.0 Above high normal 11 .6-15.2 (seconds) Final INR 11/12/2022 09:57:00 1.4 Above high normal 0. 8-1.2 Final Performing Location [facility] [address] [place] [address]
--- OUTSIDE RECORDS SUMMARY | 2023-07-25 04:25 | External Medical Summary | Summary of Care ---
Author Name Unknown Organization [place] [address] Care Team Providers Care Yarn Preparation Supervisor Name Role Phone Roger Alexandra MD Primary Care Provider [phone] [phone] Reason for Visit * Reason Onset Date Comments Medication Refill 11/17/2022 Encounter Details Date Type Department Care Team Description 11/17/2022 Refill Family Practice [facility] [address] [place] [address] Roger Alexandra MD 132 [facility] [place] [address] Chronic bilateral low back pain without sciatica [...] Each 0 2 Active Full Kit Nebulizer SetIndications: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 ESTIMATOR D, 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 D, by GOLD 2017 classification ([facility]),Chronic hypoxemic respiratory failure ([facility]) Use with nebulizer 1 Each 0 2 [...] pain 90 Tablet 0 3 Active Nystatin 607350 UNIT/GM External Powder (Nyamyc) apply to affected [...] encounter Miscellaneous Notes * Telephone Encounter - Chelo Eastman MD - 11/18/2022 5:18 PM ESTSigned Prescriptions: Disp Refills traMADol HCl 100 MG Oral Tablet 90 Tab*0 Sig: take 1 tablet by mouth every 8 hours if needed for moderate pain to severe painAuthorizing Provider: CHELO EASTMAN * Telephone Encounter - Alvarez Hope, [facility] - 11/18/2022 3:36 PM ESTPending Prescriptions: Disp Refills traMADol HCl 100 MG Oral Tablet 90 Tab*0 Sig: take 1 tablet by mouth every 8 hours if needed for moderate pain to severe pain * Telephone Encounter - Alvarez Hope, [facility] - 11/18/2022 3:35 PM EST I have reviewed the patients controlled substance dispensing history in the Prescription Drug Monitoring Program in compliance with the [facility] regulations before prescribing a controlled substance. [...] for refill: 11/21/2022 Pharmacy: [facility] #[id number] Is this request for a controlled [...] appropriate. Thanks, Alvarez Hope Pharm.D. Clinical Pharmacist [facility] [phone] 11/18/2022, 3:35 PM * Telephone Encounter - DANIEL Aragon Tech - 11/17/2022 10:16 AM EST Did you pend patient's preferred pharmacy and medication before forwarding?yes Pharmacy: [facility] #[id number] Pending Prescriptions: Disp Refills traMADol HCl [...] Care Team Description 11/19/2022 Laboratory Laboratory [facility] Mobile Home Draw [address] [place] [address] 11/20/2022 [facility] [address] [place] [address] 11/26/2022 Cardiac Studies Cardiac Studies 12/01/2022 Office Visit Pulmonary Alisha Carrero CRNP 132 [facility] [place] [address] 12/01/2022 Therapy Psychiatry Cha Champion, PhD [address] [place] [address] [place] [address] 12/16/2022 Telemedicine Psychiatry Hugo Alcantara MD [address] [place] [address] 01/13/2023 Procedure Only Endoscopy Shaneka Santiago MD [address] [place] [address] 03/17/2023 PulmDiagnostic Pulmonary Function West, Pft [address] [place] [address] Health Maintenance Due Date Last Done Comments [...] exists LUNG CANCER SCREENING - USE SMARTSET [address] Completed 03/16/2022 Influenza Vaccine (FLU shot) Completed [...] sciatica documented in this encounter Care Teams Yarn Preparation Supervisor Relationship Specialty Start Date End Date Roger Alexandra MD [address] [place] [address] PCP - General Family Medicine 12/29/19 documented as of this encounter
--- OUTSIDE RECORDS SUMMARY | 2023-07-25 04:25 | External Medical Summary | Summary of Care ---
Author Name Unknown Organization [facility] Address [place] [address] Care Team Providers Care Curriculum Coordinator Name Role Phone Roger Alexandra MD Primary Care Provider [phone] [phone] Reason for Visit * Reason Comments Neuropsychological Evaluation * - Authorized Specialty Diagnoses / Procedures Referred By Contac t Referred To Contact Referral ID Status Reason Start Date Expiration Date V isits Requested Visits Authorized [id number] Authorized 10/14/2023 999 999 Encounter Details Date Type Department Care Team Description 11/18/2022 Therapy [facility] [place] [address] [facility] [address] Roger Drake, PhD [address] [place] [address] Cognitive dysfunction*; SIMA (generalized anxiety disorder); MDD [...] bedtime. 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, by GOLD 2017 [...] pain 90 Tablet 0 11/18/2022 Active Nystatin 685523 UNIT/GM External Powder (Nyamyc) apply to affected area twice a day 15 g 1 11/18/2022 Active Hospital, Clinic, or Other Facility Administered Medication Ordered Dose Route Frequency Start Date End Date Status Albuterol Sulfate (Proventil) (2.5 MG/3ML) 0.083% inhalation solution 2.5 mgIndications:Chronic hypoxemic respiratory failure (HCC),COPD, group D, by GOLD 2017 classification ([facility]) 2.5 mg NEBULIZER PRN 03/10/2022 03/10/2023 Acti ve Albuterol Sulfate (Proventil) (5 MG/ML) 0.5% *conc* inhalation solution 2.5 mgIndications:Chronic hypoxemic respiratory failure (HCC),COPD, group D, by GOLD 2017 classification ([facility]) 2.5 mg NEBULIZER PRN 03/10/2022 [...] Progress Notes * Roger Drake, PhD - 11/20/2022 8:57 AM EST NEUROPSYCHOLOGY: [...] speech therapist during her last admission to [facility] January 2022 and noticed she was having trouble remembering what was told toher. She commented that she feels she is getting dementia and her speech therapist agreed that she suspected dementia d/t pts many strokes. 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 Olivares for neurology in [place] (now retired?) Current cognitive complaints reported as: [...] o Lives alone in a house [place] [facility] but granddaughter provides care Mon-Wed 8AM-4PM o [...] the pharmacy to have them filled o [id number] has been managing money/finances since pts ; pt and granddaughter both feel pt would have difficulty managing on her own o Granddaughter helps with furnace puncher/repairs o Pt uses a calendar to manage [...] be normal as imaged. 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 Alcantara, [facility] psychiatry)- does not feelher medications are [...] hospitalization- was admitted for inpatient care at [facility] approx. 30 years ago, but she [...] for past 8-9 years. Treatment: Rehab in [place] approx. 8-9 years ago for 3-4 weeks Legal History/Applications for Disability: -No significant legal hx -Has been on disability for many years; was originally on disability for social anxiety and other mental health concerns (unclear) Service: Denied, but was a , so she receives some benefits through the [place] Marital Status: - -Was at 15, then [...] had a brain tumor Family History from [facility] Mental Status & Behavioral Observations Consciousness: [...] Coding, Figure Copy, Figure Recall, Line Orientation); [place] Making Test; Neuropsychological Assessment Battery (NAB: Digit Span, List Learning, Naming); Controlled Oral Word Association Test (FAS); Category Fluency (Animals); Complex Ideational Material ([place] Diagnostic Aphasia Exam); Clock Drawing; Geriatric Depression [...] washing, a clear plexiglass screen, and/or limited [id number]-[id number] of test stimuli. Impressions are given with [...] with this encounter (time of licensed psychologist): [id number] x 60 minutes 00438 x 120 minutes 18262 x 30 minutes 96140 x 120 minutes documented in this encounter Plan of Treatment Upcoming Encounters Date Type Specialty Care Team Description 11/26/2022 Cardiac Studies Cardiac Studies 12/01/2022 Office Visit Pulmonary Alisha Carrero CRNP [address] [place] [address] 12/01/2022 Therapy Psychiatry Cha Champion, PhD [address] [place] [address] [place] [address] 12/16/2022 Telemedicine Psychiatry Hugo Alcantara MD [address] [place] [facility] [place] [address] 01/13/2023 Procedure Only Endoscopy Shaneka Santiago MD 132 [facility] [address] 03/17/2023 PulmDiagnostic Pulmonary Function West, Pft 132 [facility] [place] [address] Scheduled Referrals Name Type Priority Associated Diagnoses [...] exists LUNG CANCER SCREENING - USE SMARTSET [address] Completed 03/16/2022 Influenza Vaccine (FLU shot) Completed [...] moderate documented in this encounter Care Teams Curriculum Coordinator Relationship Specialty Start Date End Date Roger Alexandra MD [address] [place] [address] PCP - General Family Medicine 12/29/19 documented as of this encounter
--- OUTSIDE RECORDS SUMMARY | 2023-07-25 04:25 | External Medical Summary | Summary of Care ---
Author Name Unknown Organization [facility] Address [place] [address] Care Team Providers Care Skein Drier Name Role Phone Roger Alexandra MD Primary Care Provider [phone] [phone] Reason for Visit * Reason Comments Dosage Adjustment Via Phone (anticoag Cl inic) Encounter Details Date Type Department Care Team Description 10/30/2022 Anticoagulation Pharmacy Call Center 58[address] [facility] [place] [address] [facility] 58 [address] [place] [address] Anticoagulation management encounter* Allergies Active Allergy Reactions Severity Noted Date Comments Aspirin Unknown 12/12/2007 von Willebrand's disease Salicylates 03/01/2000 von Willebrand's disease documented as of this encounter (statuses as of 10/30/2022) Medications Medication Sig Dispensed Refills Start Date End Date Status Warfarin Sodium 5 MG Oral Tablet (Coumadin)Indications :Paroxysmal atrial fibrillation (HCC) Take by mouth 1 Tablet in the evening. OR As directed by coumadin clinic. 90 Tablet 3 02/16/2022 Active Nystatin 257768 UNIT/GM External Powder (Nyamyc) apply to affected [...] bedtime. 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 D, by GOLD 2017 classification ([facility]),Chronic hypoxemic respiratory failure (HCC) Use with nebulized meds 1 Each 0 09/16/2022 Active Full Kit Nebulizer SetIndications:COPD, group D, by GOLD 2017 classification ([facility]),Chronic hypoxemic respiratory failure (HCC) Use with [...] as of this encounter (statuses as of 10/30/2022) Active Problems Problem Noted Date Decreased functional [...] as of this encounter (statuses as of 10/30/2022) Resolved Problems Problem Noted Date Resolved Date [...] as of this encounter (statuses as of 10/30/2022) Immunizations Name Administration Dates Next Due H1N1 [...] Progress Notes * Kim Juarez, RUFINA - 10/30/2022 2:29 PM EST Contacts Type Contact Phone/Fax 10/30/2022 02:27 PM EST Phone (Outgoing) Kimberly Kendall (Self) [phone] (M) Patient Findings Negatives: Signs/symptoms of thrombosis, [...] as noted by Pharmacist: Yes RUFINA Vela 10/30/2022, 2:29 PM * Kim Mercado RPh - 10/30/2022 2:20 PM EST Coumadin Clinic (region specific) Current Warfarin Dose As of 10/30/2022 Warfarin maintenance plan: 5 mg (5 mg x 1) every day; Starting 10/30/2022 INR Result As of 10/30/2022 INR goal: 2.0-3.0 INR used for dosin.3 (10/30/2022) Warfarin Plan As of 10/30/2022 Full warfarin instructions: 5 mg every day; Starting 10/30/2022 No change documented: Kim Mecrado RPh Next INR check: 11/05/2022 Repeat PT/INR in 1 week(s) Weekly dose: not changed Additional Dosing Information: Description [facility] Also sent MyG after trying to call 01/13/23 QuadROI to contact patient with dose instructions as noted. Kim Mercado RPh 10/30/2022, 2:22 PM documented in this encounter Plan of Treatment Upcoming Encounters Date Type Specialty Care Team Description 11/05/2022 Laboratory Laboratory Processing [facility] Home Draw [address] [place] [address] 11/06/2022 Anticoagulation Pharmacy [facility] 58 [address] [place] [address] 11/18/2022 Therapy Psychiatry Roger Drake, PhD [address] [place] [facility] [address] 11/26/2022 Cardiac Studies Cardiac Studies 12/01/2022 Office Visit Pulmonary Alisha Carrero CRNP [address] [facility] [place] [address] 12/16/2022 Telemedicine Psychiatry Hugo Alcantara MD [address] [place] [address] 01/13/2023 Procedure Only Endoscopy Shaneka Satniago MD 132 [place] [address] 03/17/2023 PulmDiagnostic Pulmonary Function [place], Pft [address] [place] [address] Health Maintenance Due Date Last Done Comments Hepatitis B (1 of 3 - 3-dose series) 1960 COVID-19 Vaccine (#1) 1960 HIV Screening 1975 [...] exists LUNG CANCER SCREENING - USE SMARTSET 76039 Completed 03/16/2022 Influenza Vaccine (FLU shot) Completed [...] monitoring documented in this encounter Care Teams Skein Drier Relationship Specialty Start Date End Date Roger Alexandra MD [address] [place] [address] PCP - General Family Medicine 12/29/19 documented as of this encounter
--- OUTSIDE RECORDS SUMMARY | 2023-07-25 04:25 | External Medical Summary ---
Author Name Unknown Address Unknown Organization [id number][facility] [address] [place] [address] Laboratory Report Ordering Provider Test Date Status SUMAN STANFORD 11/19/2022 10:15:00 Final Observation Date Value Abnormality Reference (Units ) Status PT 11/19/2022 10:15:00 25.9 Above high normal 11 .6-15.2 (seconds) Final INR 11/19/2022 10:15:00 2.3 Above high normal 0. 8-1.2 Final Performing Location [facility] [place] [address] [place] [address]
--- OUTSIDE RECORDS SUMMARY | 2023-07-25 04:25 | External Medical Summary | Summary of Care ---
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 30 Tablet 2 2 Active Nystatin [id number] UNIT/GM External Powder (Nyamyc) apply to affected area twice a day 15 g 1 2 11/18/19 23 Discontinued Baclofen 10 MG Oral Tablet (Lioresal)Indicati ons:Chronic bilateral low back pain without sciatica Take 1 Tablet (10 mg) by mouth 3 times a day as needed for Muscle spasms. 90 Tablet 0 2 11/24/19 23 Discontinued traMADol HCl 100 MG Oral TabletIndications: Chronic bilateral low back pain without sciatica take 1 tablet by mouth every 8 hours if needed for moderate pain to severe pain 90 Tablet 0 2 11/17/19 23 Discontinued(Ref ill) traMADol HCl 100 MG Oral TabletIndications: Chronic bilateral low back pain without sciatica take 1 tablet by mouth every 8 hours if needed for moderate pain to severe pain 90 Tablet 0 3 11/24/19 23 Discontinued Hospital, Clinic, or Other Facility Administered Medication Ordered Dose Route Frequency Start Date End Date Status Albuterol Sulfate (Proventil) (2.5 MG/3ML) 0.083% inhalation solution 2.5 mgIndications:Chronic hypoxemic respiratory failure (HCC),COPD, group D, by GOLD 2017 classification ([facility]) 2.5 mg NEBULIZER PRN 03/10/2022 03/10/2023 Acti ve Albuterol Sulfate (Proventil) (5 MG/ML) 0.5% *conc* inhalation solution 2.5 mgIndications:Chronic hypoxemic respiratory failure (HCC),COPD, group D, by GOLD 2017 classification ([facility]) 2.5 mg NEBULIZER PRN 03/10/2022 03/10/2023 Acti [...] 02/04/2006 12/21/2008 Atrial 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 Called the pharmacy and they said the 100 MG is not in stock at the moment, and is wondering if a rx can be sent for the 50 MG- Pend order below. Sign if you agree. * Telephone Encounter - Blanche Polk CPhT - 11/24/2022 9:58 AM EST Pt calling regarding her Tramadol. Called the pharmacy and they said the 100 MG is not in stock at the moment, and is wondering if a rx can be sent for the 50 MG- twice a day. Please advise. Thank you, Blanche Polk Signal Supervisor [facility] 11/24/2022, 10:01 AM * Telephone Encounter - Alonso Eastman MD - 11/18/2022 5:18 PM ESTSigned Prescriptions: Disp Refills traMADol HCl 100 MG Oral Tablet 90 Tab*0 Sig: take 1 tablet by mouth every 8 hours if needed for moderate pain to severe painAuthorizing Provider: ALONSO EASTMAN * Telephone Encounter - Alvarez Hope [facility] - 11/18/2022 3:36 PM ESTPending Prescriptions: Disp Refills traMADol HCl 100 MG Oral Tablet 90 Tab*0 Sig: take 1 tablet by mouth every 8 hours if needed for moderate pain to severe pain * Telephone Encounter - Alvarez Hope RP - 11/18/2022 3:35 PM EST I have reviewed the patients controlled substance dispensing history in the Prescription Drug Monitoring Program in compliance with the [facility] regulations before prescribing a controlled substance. PDMP [...] for refill: 11/21/2022 [facility]acy: [facility] #[id number] Is this request for a controlled [...] appropriate. Thanks, Alvarez Hope Pharm.D. Clinical Pharmacist [facility] [phone] 11/18/2022, 3:35 PM * Telephone Encounter - DANIEL Aragon Tech - 11/17/2022 10:16 AM EST Did you pend patient's preferred pharmacy and medication before forwarding?yes Pharmacy: [facility] #[id number] Pending Prescriptions: Disp Refills traMADol HCl [...] found in Results Review. Patient Phone Numbers [employer] [phone] Labs: Lab Results Component Value Date/Time CREAT [...] Alisha Carrero CRNP [address] [place] [address] 12/01/2022 Therapy Psychiatry Cha Champion, PhD [address] [place] [address] [place] [address] 12/10/2022 Laboratory Laboratory Processing [place], [facility] Home Draw [address] [place] [address] 12/11/2022 [facility] [address] [place] [address] 12/16/2022 Telemedicine Psychiatry Hugo Alcantara MD [address] [place] [address] 01/13/2023 Procedure Only Endoscopy Shaneka Santiago MD [address] [place] [address] 03/17/2023 PulmDiagnostic Pulmonary Function [facility] Pft [address] [place] [address] Health Maintenance Due Date Last Done Comments [...] exists LUNG CANCER SCREENING - USE SMARTSET 10048 Completed 03/16/2022 Influenza Vaccine (FLU shot) Completed [...] sciatica documented in this encounter Care Teams Asset Protection Greeter Relationship Specialty Start Date End Date Roger Alexandra MD [address] [place] [address] PCP - General Family Medicine 12/29/19 documented as of this encounter
--- OUTSIDE RECORDS SUMMARY | 2023-07-25 04:25 | External Medical Summary | Summary of Care ---
Author Name Unknown Organization [facility] Address [place] [address] Care Team Providers Care Track Welder Name Role Phone Roger Alexandra MD Primary Care Provider [phone] [phone] Reason for Visit * Reason Comments Dosage Adjustment Via Phone (anticoag Cl inic) Encounter Details Date Type Department Care Team Description 11/12/2022 Anticoagulation Pharmacy Call Center [address] [facility] [place] [address] [facility] 58 60 [place] [address] Anticoagulation management encounter* Allergies Active Allergy Reactions Severity Noted Date Comments Aspirin Unknown 12/12/2007 von Willebrand's disease Salicylates 03/01/2000 von Willebrand's disease documented as of this encounter (statuses as of 11/12/2022) Medications Medication Sig Dispensed Refills Start Date End Date Status Warfarin Sodium 5 MG Oral Tablet (Coumadin)Indications :Paroxysmal atrial fibrillation (HCC) Take by mouth 1 Tablet in the evening. OR As directed by coumadin clinic. 90 Tablet 3 02/16/2022 Active Nystatin 217235 UNIT/GM External Powder (Nyamyc) apply to affected [...] bedtime. 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 30 Tablet 2 11/06/2022 Active Hospital, Clinic, or Other Facility Administered [...] as of this encounter (statuses as of 11/12/2022) Active Problems Problem Noted Date Decreased functional [...] as of this encounter (statuses as of 11/12/2022) Resolved Problems Problem Noted Date Resolved Date [...] as of this encounter (statuses as of 11/12/2022) Immunizations Name Administration Dates Next Due H1N1 [...] as of this encounter Progress Notes * Piedad Craft, Self [facility] - 11/12/2022 3:05 PM EST Images from the original note were not included. Medication Therapy Disease Management - Anticoagulation Patient: Kimberly Abhilash Kendall : 1960 Contacts Type Contact Phone/Fax 11/12/2022 03:07 PM EST Phone (Outgoing) Kimberly Kendall (Self) [phone] (M) Left Message Current Warfarin Dose As of 11/12/2022 Warfarin maintenance plan: 5 mg (5 mg x 1) every day; Starting 11/12/2022 INR Result As of 11/12/2022 INR goal: 2.0-3.0 INR used for dosin.4 (11/12/2022) Warfarin Plan As of 11/12/2022 Full warfarin instructions: 11/12: 7.5 mg; Otherwise 5 mg every day; Starting 11/12/2022 Next INR check: 11/19/2022 Additional Dosing Information: Description GML Also sent MyG after trying to call 01/13/23 - colonoscopy Repeat PT/INR in 1 week(s) Weekly dose: not changed Piedad Craft RPh Clinical Pharmacist 11/12/2022, 3:05 PM documented in this encounter Plan of Treatment Upcoming Encounters Date Type Specialty Care Team Description 11/18/2022 Therapy Psychiatry Roger Drake, PhD [address] [place] [address] 11/26/2022 Cardiac Studies Cardiac Studies 12/01/2022 Office Visit Pulmonary Alisha Carrero CRNP [address] [place] [address] 12/16/2022 Telemedicine Psychiatry Hugo Alcantara MD [address] [place] [address] 01/13/2023 Procedure Only Endoscopy Shaneka Santiago MD [address] [place] [address] 03/17/2023 PulmDiagnostic Pulmonary Function [place], Pft [address] [place] [address] Health Maintenance Due Date Last Done Comments [...] exists LUNG CANCER SCREENING - USE SMARTSET 01118 Completed 03/16/2022 Influenza Vaccine (FLU shot) Completed [...] monitoring documented in this encounter Care Teams Track Welder Relationship Specialty Start Date End Date Roger Alexandra MD [address] [place] [address] PCP - General Family Medicine 12/29/19 documented as of this encounter
--- OUTSIDE RECORDS SUMMARY | 2023-07-25 04:25 | External Medical Summary | Summary of Care ---
Author Name Unknown Organization [facility] Address [place] [address] Care Team Providers Care Pals Nurse Name Role Phone Roger Alexandra MD Primary Care Provider [phone] [phone] Reason for Visit * Reason Comments Dosage Adjustment Via Phone (anticoag Cl inic) Encounter Details Date Type Department Care Team Description 10/29/2022 [facility] [place] [address] [facility] 58 60 [place] [address] Anticoagulation management encounter* Allergies Active Allergy Reactions Severity Noted Date Comments Aspirin Unknown 12/12/2007 von Willebrand's disease Salicylates 03/01/2000 von Willebrand's disease documented as of this encounter (statuses as of 10/29/2022) Medications Medication Sig Dispensed Refills Start Date End Date Status Warfarin Sodium 5 MG Oral Tablet (Coumadin)Indications :Paroxysmal atrial fibrillation (HCC) Take by mouth 1 Tablet in the evening. OR As directed by coumadin clinic. 90 Tablet 3 02/16/2022 Active Nystatin 901429 UNIT/GM External Powder (Nyamyc) apply to affected [...] bedtime. 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 ([facility]),Chronic hypoxemic respiratory failure (HCC) Use with nebulized meds 1 Each 0 09/16/2022 Active Full Kit Nebulizer SetIndications:COPD, group D, by GOLD 2017 classification ([facility]),Chronic hypoxemic respiratory failure (HCC) Use with [...] as of this encounter (statuses as of 10/29/2022) Active Problems Problem Noted Date Decreased functional [...] as of this encounter (statuses as of 10/29/2022) Resolved Problems Problem Noted Date Resolved Date [...] as of this encounter (statuses as of 10/29/2022) Immunizations Name Administration Dates Next Due H1N1 [...] Progress Notes * Kim Mercado RPh - 10/29/2022 1:01 PM EST Noted- pt has weekly dose. Will follow up once lab received. Kim Mercado Rph, Pharm.D. Clinical Pharmacist [facility] [phone] 10/29/2022,1:01 PM * DANIEL Bello Tech - 10/29/2022 11:50 AM EST [facility] unable to draw patient today due to weather. They have rescheduled patient for tomorrow 10/30. Follow up call scheduled for tomorrow. Please advise. Thank you, Jeni Brooks Adult Manager [employer] [facility] 10/29/2022,11:50 AM documented in this encounter Plan of Treatment Upcoming Encounters Date Type Specialty Care Team Description 10/30/2022 Laboratory Laboratory Processing [facility] Home Draw [address] [place] [address] 10/30/2022 [facility] 58 [address] [place] [address] 11/18/2022 Therapy Psychiatry Roger Drake, PhD [address] [place] [address] 11/26/2022 Cardiac Studies Cardiac Studies 12/02/2022 Office Visit Pulmonary Jesus Bonilla MD [address] [facility] [place] [id number] 12/16/2022 Telemedicine Psychiatry Hugo Alcantara MD [address] [place] [address] 01/13/2023 Procedure Only Endoscopy Shaneka Santiago MD 132 [facility] [place] [address] 03/17/2023 [facility] 132 [facility] [place] [address] Health Maintenance Due Date Last Done Comments [...] exists LUNG CANCER SCREENING - USE SMARTSET 67129 Completed 03/16/2022 Influenza Vaccine (FLU shot) Completed [...] monitoring documented in this encounter Care Teams Pals Nurse Relationship Specialty Start Date End Date Roger Alexandra MD 132 [place] [address] PCP - General Family Medicine 12/29/19 documented as of this encounter
--- OUTSIDE RECORDS SUMMARY | 2023-07-25 04:25 | External Medical Summary | Summary of Care ---
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 0 [...] Encounter - Chelo Eastman MD - 11/18/2022 5:17 PM ESTSigned Prescriptions: Disp Refills Nystatin 244658 UNIT/GM External Powder (N*15 g 1 Sig: apply to affected area twice a day Authorizing Provider: CHELO EASTMAN * Telephone Encounter - Aly Bryant [facility] - 11/18/2022 4:34 PM ESTPending Prescriptions: Disp Refills Nyamyc 677168 UNIT/GM External Powder [Pha*15 g 1 Sig: apply to affected area twice a day * Telephone Encounter - Aly Bryant RP - 11/18/2022 4:34 PM EST Refill pharmacists currently not authorized to approve refills for the pended medication(s) per refill protocol. Please approve if appropriate. Thanks, Kobi ChanPh. Clinical Pharmacist [facility]ral [facility] [phone] 11/18/2022,4:34 PM Pending Prescriptions: Disp Refills Nyamyc 932907 UNIT/GM External Powder [Pha*15 g 1 Sig: apply to affected area twice a day Last Visit: 09/30/2022 (in office), 03/14/2021 (telemedicine) Next Visit: Visit date not found If no future appointments scheduled, and last appointment is greater than a year ago, please schedule patient for a follow-up appointment Last date the medication was ordered: 05-19-22 Pharmacy: [facility] #[id number] Is this request for a controlled [...] Care Team Description 11/19/2022 Laboratory Laboratory Processing [facility] Draw [address] [facility] [place] [address] 11/20/2022 [facility] 58 60 [facility] [place] [address] 11/26/2022 Cardiac Studies Cardiac Studies 12/01/2022 Office Visit Pulmonary Alisha Carrero CRNP 132 [facility] [place] [address] 12/01/2022 Therapy Psychiatry Cha Champion, PhD [address] [place] [address] [place] [address] 12/16/2022 Telemedicine Psychiatry Hugo Alcantara MD [address] [facility] [id number] 01/13/2023 Procedure Only Endoscopy Shaneka Santiago MD [address] [place] [address] 03/17/2023 PulmDiagnostic Pulmonary Function [place], [facility]ft [facility] [place] [address] Health Maintenance Due Date Last Done Comments [...] exists LUNG CANCER SCREENING - USE SMARTSET 93396 Completed 03/16/2022 Influenza Vaccine (FLU shot) Completed [...] as of this encounter Care Teams Medical Claims Representative Relationship Specialty Start Date End Date Roger Alexandra MD [address] [place] [address] PCP - General Family Medicine 12/29/19 documented as of this encounter
--- OUTSIDE RECORDS SUMMARY | 2023-07-25 04:26 | External Medical Summary | Summary of Care ---
Author Name Unknown Organization [place] [address] Care Team Providers Care Assistant Secretary Name Role Phone Roger Alexandra MD Primary Care Provider [phone] Reason for Visit * Reason Comments case management Encounter Details Date Type Department Care Team Description 10/19/2022 [address] [place] [address] Yara Morris, RN Medical home patient encounter* Allergies Active Allergy Reactions Severity Noted Date Comments Aspirin Unknown 12/12/2007 von Willebrand's disease Salicylates 03/01/2000 von Willebrand's disease documented as of this encounter (statuses as of 10/19/2022) Medications Medication Sig Dispensed Refills Start Date End Date Status Warfarin Sodium 5 MG Oral Tablet (Coumadin)Indications :Paroxysmal atrial fibrillation (HCC) Take by mouth 1 Tablet in the evening. OR As directed by coumadin clinic. 90 Tablet 3 02/16/2022 Active Nystatin 812832 UNIT/GM External Powder (Nyamyc) apply to affected [...] before bedtime. 30 Tablet 2 08/10/2022 Active busPIRone HCl 10 MG Oral Tablet (Buspar) Take by mouth 2 Tablets in the morning AND 2 Tablets before bedtime. 120 Tablet 1 08/24/2022 Active guaiFENesin ER 600 MG Oral Tablet [...] bedtime. 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 ([facility]),Chronic hypoxemic respiratory failure ([facility]) Use with nebulized meds 1 Each 0 09/16/2022 Active Full Kit Nebulizer SetIndications:COPD, group D, by GOLD 2017 classification ([facility]),Chronic hypoxemic respiratory failure ([facility]) Use with nebulizer 1 Each 0 09/16/2022 Active traMADol HCl 100 MG Oral TabletIndications:Chr onic bilateral low back pain without sciatica take 1 tablet by mouth every 8 hours if needed for moderate pain to severe pain 90 Tablet 0 09/23/2022 Active Baclofen 10 MG Oral Tablet (Lioresal)Indications [...] BEFORE BEDTIME 60 Capsule 5 10/05/2022 Active clonazePAM 0.5 MG Oral Tablet (KlonoPIN) Take 1 Tablet (0.5 mg) by mouth in the morning and 1 Tablet (0.5 mg) before bedtime. 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 SHe had visited the patient on 10/18. Patient had c/o dysuria symptoms. I re faxed order to [facility] that was placed in September for similar symptoms. Called Hannah back and made aware that ok to obtain via straight cath if needed as patient is incontinent. documented in this encounter Plan of Treatment Upcoming Encounters Date Type Specialty Care Team Description 10/20/2022 [facility] [address] [facility] [place] [facility] 11/18/2022 Therapy Psychiatry Roger Drake, PhD [address] [place] [address] 11/26/2022 Cardiac Studies Cardiac Studies 12/02/2022 Office Visit Pulmonary Jesus Bonilla MD [address] [place] [address] 12/16/2022 Telemedicine Psychiatry Hugo Alcantara MD [address] [place] [address] 01/13/2023 Procedure Only Endoscopy Shaneka Santiago MD [address] [place] [address] 03/17/2023 PulmDiagnostic Pulmonary Function West, [address]ft [address] [facility] [place] [address] Health Maintenance Due Date Last Done Comments [...] 10/15, 04/27/2014, Additional history exists Diabetes Screening 01/15/2025 01/15/2022, 0 01/08/2022, 01/03/2022, Additional history exists COLONOSCOPY-EVERY 5 YRS AGES 18-100 11/12/2025 11/12/2020, 05/22/2013, 08/21/2011, Additional history exists LUNG CANCER SCREENING - USE SMARTSET 23985 Completed 03/16/2022 Influenza Vaccine (FLU shot) Completed [...] examination documented in this encounter Care Teams Assistant Secretary Relationship Specialty Start Date End Date Roger Alexandra MD [address] [address] PCP - General Family Medicine 12/29/19 documented as of this encounter
--- OUTSIDE RECORDS SUMMARY | 2023-07-25 04:26 | External Medical Summary | Summary of Care ---
Author Name Unknown Organization [place] [address] Care Team Providers Care Beauty School Instructor Name Role Phone Roger Alexandra MD Primary Care Provider [phone] Reason for Visit * Reason Onset Date Comments Other 10/26/2022 Encounter Details Date Type Department Care Team Description 10/26/2022 Telephone [facility] [place] [address] [id number] Hugo Alcantara MD [address] [place], [place] [id number] Other Allergies Active Allergy Reactions Severity Noted Date Comments Aspirin Unknown 12/12/2007 von Willebrand's disease Salicylates 03/01/2000 von Willebrand's disease documented as of this encounter (statuses as of 10/27/2022) Medications Medication Sig Dispensed Refills Start Date End Date Status Warfarin Sodium 5 MG Oral Tablet (Coumadin)Indications :Paroxysmal atrial fibrillation (HCC) Take by mouth 1 Tablet in the evening. OR As directed by coumadin clinic. 90 Tablet 3 02/16/2022 Active Nystatin 983693 UNIT/GM External Powder ([facility]) apply to affected area twice a day [...] bedtime. 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 60 Tablet 1 10/12/2022 Active busPIRone HCl 10 MG Oral Tablet [...] of Breath. 540 mL 12 10/23/2022 Active Hospital, Clinic, or Other Facility Administered Medication Ordered Dose Route Frequency Start Date End Date Status Albuterol Sulfate (Proventil) (2.5 MG/3ML) 0.083% inhalation solution 2.5 mgIndications:Chronic hypoxemic respiratory failure (HCC),COPD, group D, by GOLD 2017 classification ([facility]) 2.5 mg NEBULIZER PRN 03/10/2022 03/10/2023 Acti ve Albuterol Sulfate (Proventil) (5 MG/ML) 0.5% *conc* inhalation solution 2.5 mgIndications:Chronic hypoxemic respiratory failure (HCC),COPD, group D, by GOLD 2017 classification ([facility]) 2.5 mg NEBULIZER PRN 03/10/2022 03/10/2023 Acti ve documented as of this encounter (statuses as of 10/27/2022) Active Problems Problem Noted Date Decreased functional [...] as of this encounter (statuses as of 10/27/2022) Resolved Problems Problem Noted Date Resolved Date [...] as of this encounter (statuses as of 10/27/2022) Immunizations Name Administration Dates Next Due H1N1 [...] Miscellaneous Notes * Telephone Encounter - Blanche Wilcox LPN - 10/26/2022 1:54 PM EST Patient is asking for provider to reach out to her by phone flaquito, Patient is anxious, wanting to talk about other prescription options. Reach at number on file. documented in this encounter Plan of Treatment Upcoming Encounters Date Type Specialty Care Team Description 10/28/2022 [facility] [address] [place] [address] 10/29/2022 Laboratory Laboratory Processing [facility], [facility] Mobile Home Draw [address] [place] [address] 11/18/2022 Therapy Psychiatry Roger Drake, PhD [address] [place] [address] 11/26/2022 Cardiac Studies Cardiac Studies 12/02/2022 Office Visit Pulmonary Jesus Bonilla MD [address] [place] [address] 12/16/2022 Telemedicine Psychiatry Hugo Alcantara MD [address] [place], [place] [address] 01/13/2023 Procedure Only Endoscopy [facility] [address] [facility] [address] 03/17/2023 PulmDiagnostic Pulmonary Function [place] [address] [facility] [place] [address] Health Maintenance Due Date Last Done Comments [...] exists LUNG CANCER SCREENING - USE SMARTSET 36103 Completed 03/16/2022 Influenza Vaccine (FLU shot) Completed , 11/11/2021, 11/11/2021, Additional history exists GARDASIL-HPV IMMUNIZATION SERIES Aged Out No longer eligible based on patient's age to complete this topic MENINGOCOCCAL (MENACTRA/MENVEO) Aged Out No longer eligible based on patient's age to complete this topic documented as of this encounter Medical Devices Not on filedocumented as of this encounter Care Teams Beauty School Instructor Relationship Specialty Start Date End Date Roger Alexandra MD [address] [place] [address] PCP - General Family Medicine 12/29/19 documented as of this encounter
--- OUTSIDE RECORDS SUMMARY | 2023-07-25 04:26 | External Medical Summary ---
Author Name Unknown Address Unknown Organization [facility] [address] [place] [address] Laboratory Report Ordering Provider Test Date Status VINAY CHEW 10/20/2022 09:00:39 Final Observation Date Value Abnormality Reference (Units ) Status Color of Urine by Auto 10/20/2022 09:00:39 Yellow Light Yellow, Yellow, Dark Yellow Final Clarity, Urine 10/20/2022 09:00:39 Slightly Cloudy Abnormal Clear Final Glucose [Mass/volume] in Urine by Automated test strip 10/20/2022 09:00:39 Negative Negative (mg/dL) Final Bilirubin.total [Presence] in Urine by Automated test strip 10/20/2022 09:00:39 Negative Negative Final Ketones [Mass/volume] in Urine by Automated test strip 10/20/2022 09:00:39 Negative Negative (mg/dL) Final Specific gravity, Urine 10/20/2022 09:00:39 1.025 1.003-1.030 Final Hemoglobin [Presence] in Urine by Automated test strip 10/20/2022 09:00:39 Negative Negative Final pH, Urine 10/20/2022 09:00:39 5.0 5.0-7.5 (Units) Final Protein [Mass/volume] in Urine by Automated test strip 10/20/2022 09:00:39 Negative Negative (mg/dL) Final Urobilinogen [Mass/volume] in Urine by Automated test strip 10/20/2022 09:00:39 0.2 0.2, 1.0 (mg/dL) Final Nitrite [Presence] in Urine by Automated test strip 10/20/2022 09:00:39 Positive Abnormal Negative Final Leukocyte esterase [Presence] in Urine by Automated test strip 10/20/2022 09:00:39 Small Abnormal Negative Final Performing Location [facility] [address] [place] [address]
--- OUTSIDE RECORDS SUMMARY | 2023-07-25 04:26 | External Medical Summary | Summary of Care ---
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 OR As directed by coumadin clinic. 90 Tablet 3 02/16/2022 Active Nystatin 232327 UNIT/GM External Powder (Nyamyc) apply to affected [...] bedtime. 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 60 Tablet 1 10/12/2022 Active Sulfamethoxazole-Trim ethoprim 800-160 MG Oral Tablet (Bactrim DS) Take 1 Tablet by mouth in the morning and 1 Tablet before bedtime. Do all this for 3 days. Until gone. 6 Tablet 0 10/20/2022 10/23/2022 Active Hospital, Clinic, or Other Facility Administered Medication Ordered Dose Route Frequency Start Date End Date Status Albuterol Sulfate (Proventil) (2.5 MG/3ML) 0.083% inhalation solution 2.5 mgIndications:Chronic hypoxemic respiratory failure (HCC),COPD, group D, by GOLD 2017 classification ([facility]) 2.5 mg NEBULIZER PRN 03/10/2022 03/10/2023 Acti ve Albuterol Sulfate (Proventil) (5 MG/ML) 0.5% *conc* inhalation solution 2.5 mgIndications:Chronic hypoxemic respiratory failure (HCC),COPD, group D, by GOLD 2017 classification ([facility]) 2.5 mg NEBULIZER PRN 03/10/2022 03/10/2023 Acti ve documented as of this encounter (statuses as of 10/20/2022) Active Problems Problem Noted Date Decreased functional [...] as of this encounter (statuses as of 10/20/2022) Resolved Problems Problem Noted Date Resolved Date [...] as of this encounter (statuses as of 10/20/2022) Immunizations Name Administration Dates Next Due H1N1 [...] Progress Notes * Kim Mercado RPh - 10/20/2022 2:17 PM EST Noted- will follow up and see if NOAC would be appropriate/affordable for pt. Kim Mercado Rph, Pharm.D. Clinical Pharmacist [facility] [phone] 10/20/2022,2:17 PM * DANIEL Morley - 10/20/2022 11:45 AM EST Contacts Type Contact Phone/Fax 10/20/2022 11:38 AM EST Phone (Outgoing) Kimberly Kendall (Self) [phone] (M) Patient Findings Positives: Signs/symptoms of bleeding (Pt having nosebleeds again. Lasting a while and hard to stop. Pt already knows about Saline for sinus and keeping sinus moist and clean.Pt mentioned she may check with DR to try a different medication.), Missed doses (Pt stated she takes herself off Warfarin when she gets really bad nosebleeds. She has been having issues with nosebleeds almost everyday over last week. PT had stopped Warfarin for at least 3 days. Pt could not be specific.) Negatives: Signs/symptoms of thrombosis, Change in health, Change in alcohol use, Change in activity, Upcoming invasive procedure, Extra doses, Change in medications, Change in diet/appetite, Bruising Advised patient to contact Anticoagulation Clinic if any unusual bruising or bleeding, recent illness, changes in medication, or questions/concerns. PT/INR results, Coumadin dose instructions, and next PT/INR date communicated as noted by Pharmacist: Yes DANIEL Morley 10/20/2022, 11:45 AM * Kim Mercado RPh - 10/20/2022 8:48 AM EST Images from the original note were not included. Coumadin Clinic (region specific) Current Warfarin Dose As of 10/20/2022 Warfarin maintenance plan: 5 mg (5 mg x 1) every day; Starting 10/20/2022 INR Result As of 10/20/2022 INR goal: 2.0-3.0 INR used for dosin.9 (10/19/2022) Warfarin Plan As of 10/20/2022 Full warfarin instructions: 10/20: 7.5 mg; 10/21: 7.5 mg; Otherwise 5 mg every day; Starting 10/20/2022 Next INR check: 10/23/2022 Repeat PT/INR in 5 day(s) Weekly dose: not changed Additional Dosing Information: Description GML Also sent MyG after trying to call 01/13/23 [employer] to contact patient with dose instructions as noted. Kim Mercado RPh 10/20/2022, 8:50 AM documented in this encounter Plan of Treatment Upcoming Encounters Date Type Specialty Care Team Description 10/23/2022 [facility] [address] [place] [address] 11/18/2022 Therapy Psychiatry Roger Drake, PhD [address] [place] [address] 11/26/2022 Cardiac Studies Cardiac Studies 12/02/2022 Office Visit Pulmonary Jesus Bonilla MD [address] [place] [address] 12/16/2022 Telemedicine Psychiatry Hugo Alcantara MD [address] [place] [address] 01/13/2023 Procedure Only Endoscopy Shaneka Santiago MD [address] [place] [address] 03/17/2023 PulmDiagnostic Pulmonary Function [place], [address] [place] [address] Health Maintenance Due Date Last Done Comments [...] exists LUNG CANCER SCREENING - USE SMARTSET 03160 Completed 03/16/2022 Influenza Vaccine (FLU shot) Completed , 11/11/2021, 11/11/2021, Additional history exists GARDASIL-HPV IMMUNIZATION SERIES Aged Out No longer eligible based on patient's age to complete this topic MENINGOCOCCAL (MENACTRA/MENVEO) Aged Out No longer eligible based on patient's age to complete this topic documented as of this encounter Medical Devices Not on filedocumented as of this encounter Visit Diagnoses 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
--- OUTSIDE RECORDS SUMMARY | 2023-07-25 04:26 | External Medical Summary | Summary of Care ---
Author Name Unknown Organization [facility] Address [place] [address] Care Team Providers Care Eyeglass Frame Truer Name Role Phone Roger Alexandra MD Primary Care Provider [phone] Reason for Visit * Reason Comments Dosage Adjustment Via Phone (anticoag Cl inic) Encounter Details Date Type Department Care Team Description 10/28/2022 Anticoagulation Pharmacy Call Center [address] [facility] [place] [address] [facility] [address] [facility] [place] [address] Anticoagulation management encounter* Allergies Active Allergy Reactions Severity Noted Date Comments Aspirin Unknown 12/12/2007 von Willebrand's disease Salicylates 03/01/2000 von Willebrand's disease documented as of this encounter (statuses as of 10/28/2022) Medications Medication Sig Dispensed Refills Start Date End Date Status Warfarin Sodium 5 MG Oral Tablet (Coumadin)Indications :Paroxysmal atrial fibrillation (HCC) Take by mouth 1 Tablet in the evening. OR As directed by coumadin clinic. 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 Kim Mercado Rph, Pharm.D. Clinical Pharmacist Telepharmacy [phone] 10/28/2022,4:23 PM * DANIEL Bello Tech - 10/28/2022 10:31 AM EST [facility] unable to draw patient today, they do not have a mobile unit in patient's area. She is scheduled for INR draw tomorrow, 10/29. Follow up call scheduled for tomorrow. Please advise. Thank you, Jeni Brooks Suspect Artist Supervisor [employer] Telepharmacy 10/28/2022,10:31 AM documented in this encounter Plan of Treatment Upcoming Encounters Date Type Specialty Care Team Description 10/29/2022 Laboratory Laboratory Processing [facility], [facility] Mobile Home Draw [address] [place], [place] [id number] 10/29/2022 [facility] [address] [place] [address] 11/18/2022 Therapy Psychiatry Roger Drake, PhD [address] [place] [address] 11/26/2022 Cardiac Studies Cardiac Studies 12/02/2022 Office Visit Pulmonary Jesus Bonilla MD [address] [place] [address] 12/16/2022 Telemedicine Psychiatry Hugo Alcantara MD [address] [place] [address] 01/13/2023 Procedure Only Endoscopy Shaneka Santiago MD [address] [facility] [place] [address] 03/17/2023 [facility] [address] [facility] [place] [address] Health Maintenance Due Date Last Done Comments [...] exists LUNG CANCER SCREENING - USE SMARTSET 29136 Completed 03/16/2022 Influenza Vaccine (FLU shot) Completed [...] monitoring documented in this encounter Care Teams Eyeglass Frame Truer Relationship Specialty Start Date End Date Roger Alexandra MD [address] [place] [address] PCP - General Family Medicine 12/29/19 documented as of this encounter
--- OUTSIDE RECORDS SUMMARY | 2023-07-25 04:26 | External Medical Summary | Summary of Care ---
Author Name Unknown Organization [place] [address] Care Team Providers Care Grain Farmer Name Role Phone Roger Alexandra MD Primary Care Provider +1 [phone] Reason for Visit * Reason Comments Outpatient Testing Encounter Details Date Type Department Care Team Description 10/20/2022 Laboratory Laboratory, [facility] 132 [facility] [place] [address] [facility] 132 [facility] [place] [address] Urinary tract infection Allergies Active Allergy Reactions Severity Noted Date [...] clinic. 90 Tablet 3 02/16/2022 Active Nystatin 243883 UNIT/GM External Powder (Moamyc) apply to affected area twice a day [...] bedtime. 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 0 06/01/2005 [...] Date Type Specialty Care Team Description 10/23/2022 [facility] Telepharmacy, Psychiatric 58 [address] [facility] [place] [address] 11/18/2022 Therapy Psychiatry Roger Drake, PhD [address] [place], [place] [address] [address] 11/26/2022 Cardiac Studies Cardiac Studies 12/02/2022 Office Visit Pulmonary Jesus Bonilla MD [address] [facility] [place] [address] 12/16/2022 Telemedicine Psychiatry Hugo Alcantara MD [address] [place] [facility] [place] [address] 01/13/2023 Procedure Only Endoscopy Shaneka Santiago MD 132 [place] [address] 03/17/2023 PulmDiagnostic Pulmonary Function West, Pft [address] [place] [address] Pending Results Name Type Priority Associated Diagnoses Date /Time URINALYSIS, REFLEX TO MICROSCOPIC Lab Routine Urinary tract infection 10/20/2022 9:00 AM EST CULTURE, URINE, QUANTITATIVE Lab Routine Urinary tract infection 10/20/2022 9:00 AM EST Health Maintenance Due Date Last Done [...] exists LUNG CANCER SCREENING - USE SMARTSET 88408 Completed 03/16/2022 Influenza Vaccine (FLU shot) Completed , 11/11/2021, 11/11/2021, Additional history exists GARDASIL-HPV IMMUNIZATION SERIES Aged Out No longer eligible based on patient's age to complete this topic MENINGOCOCCAL (MENACTRA/MENVEO) Aged Out No longer eligible based on patient's age to complete this topic documented as of this encounter Medical Devices Not on filedocumented as of this encounter Visit Diagnoses Diagnosis Urinary tract infection Urinary tract infection, site not specified documented in this encounter Care Teams Grain Farmer Relationship Specialty Start Date End Date Roger Alexandra MD 132 [place] [address] PCP - General Family Medicine 12/29/19 documented as of this encounter
--- OUTSIDE RECORDS SUMMARY | 2023-07-25 04:26 | External Medical Summary | Summary of Care ---
Author Name Unknown Organization [facility] Address [place] [address] Care Team Providers Care Switchboard Wire Worker Helper Name Role Phone Roger Alexandra MD Primary Care Provider [phone] [phone] Reason for Visit * Reason Comments Dosage Adjustment Via Phone (anticoag Cl inic) Encounter Details Date Type Department Care Team Description 10/23/2022 Anticoagulation Pharmacy Call Center 58-[address] [facility] [place] [address] [facility] 58 60 [place] [address] Anticoagulation management encounter* Allergies Active Allergy Reactions Severity Noted Date Comments Aspirin Unknown 12/12/2007 von Willebrand's disease Salicylates 03/01/2000 von Willebrand's disease documented as of this encounter (statuses as of 10/23/2022) Medications Medication Sig Dispensed Refills Start Date End Date Status Warfarin Sodium 5 MG Oral Tablet (Coumadin)Indications :Paroxysmal atrial fibrillation (HCC) Take by mouth 1 Tablet in the evening. OR As directed by coumadin clinic. 90 Tablet 3 02/16/2022 Active Nystatin 450784 UNIT/GM External Powder (Nyamyc) apply to affected [...] bedtime. 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 6 Tablet 0 10/20/2022 10/23/2022 Active busPIRone HCl 10 MG Oral [...] severe pain 90 Tablet 0 10/21/2022 Active Hospital, Clinic, or Other Facility Administered [...] as of this encounter (statuses as of 10/23/2022) Active Problems Problem Noted Date Decreased functional [...] as of this encounter (statuses as of 10/23/2022) Resolved Problems Problem Noted Date Resolved Date [...] as of this encounter (statuses as of 10/23/2022) Immunizations Name Administration Dates Next Due H1N1 [...] this encounter Progress Notes * Kim Mercado, [facility] - 10/23/2022 2:48 PM EST Images from the original note were not included. Medication Therapy Disease Management - Anticoagulation Patient: Kimberly Kendall : 1960 Contacts Type Contact Phone/Fax 10/23/2022 02:50 PM EST Phone (Outgoing) Kimberly Kendall Abhilash (Self) [phone] (M) Spoke to Patient Current Warfarin Dose As of 10/23/2022 Warfarin maintenance plan: 5 mg (5 mg x 1) every day; Starting 10/23/2022 Patient-Reported Symptoms: Patient Findings Negatives: Signs/symptoms of thrombosis, Signs/symptoms of bleeding, Change in health, Change in alcohol use, Change in activity, Upcoming invasive procedure, Missed doses, Extra doses, Change in medications, Change in diet/appetite, Bruising Comments: Pt confirms she took doses last 2 days as advised. Interested in DOAC if affordable. INR Result As of 10/23/2022 INR goal: 2.0-3.0 INR used for dosin.0 (10/23/2022) Warfarin Plan As of 10/23/2022 Full warfarin instructions: 10/23: 7.5 mg; 10/24: 7.5 mg; Otherwise 5 mg every day; Starting 10/23/2022 Next INR check: 10/28/2022 Additional Dosing Information: Description GM Also sent MyG after trying to call 01/13/23 - colonoscopy Repeat PT/INR in 5 day(s) Weekly dose: not changed Kim Mercado RPh Clinical Pharmacist 10/23/2022, 2:53 PM documented in this encounter Plan of Treatment Upcoming Encounters Date Type Specialty Care Team Description 11/18/2022 Therapy Psychiatry Roger Drake, PhD [address] [place] [address] 11/26/2022 Cardiac Studies Cardiac Studies 12/02/2022 Office Visit Pulmonary Jesus Bonilla MD [address] [place] [facility] [place] [address] 12/16/2022 Telemedicine Psychiatry Hugo Alcantara MD [address] [place] [address] 01/13/2023 Procedure Only Endoscopy Shaneka Santiago MD 132 [place] [address] 03/17/2023 PulmDiagnostic Pulmonary Function West, Pft [address] [place] [address] Health Maintenance Due Date Last Done Comments [...] exists LUNG CANCER SCREENING - USE SMARTSET 16653 Completed 03/16/2022 Influenza Vaccine (FLU shot) Completed [...] monitoring documented in this encounter Care Teams Switchboard Wire Worker Helper Relationship Specialty Start Date End Date Roger Alexandra MD 132 [place] [address] PCP - General Family Medicine 12/29/19 documented as of this encounter
--- OUTSIDE RECORDS SUMMARY | 2023-07-25 04:26 | External Medical Summary | Summary of Care ---
Author Name Unknown Organization [place] [address] Care Team Providers Care Crossband Layer Name Role Phone Roger Alexandra MD Primary Care Provider [phone] [phone] Reason for Visit * Reason Comments Outpatient Testing Encounter Details Date Type Department Care Team Description 10/20/2022 Laboratory Laboratory, [facility] 132 [facility] [place] [address] [facility] 132 [facility] [place] [address] Urinary tract infection Allergies [...] clinic. 90 Tablet 3 02/16/2022 Active Nystatin 725907 UNIT/GM External Powder (Laamyc) apply to affected area twice a day [...] bedtime. 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 ([facility]),Chronic hypoxemic respiratory failure (HCC) Use with nebulized [...] Date Type Specialty Care Team Description 10/23/2022 [facility] Telepharmacy, [facility] 58 60 [facility] [place] [address] 11/18/2022 Therapy Psychiatry Roger Drake, PhD [address] [place], [place] [address] [address] 11/26/2022 Cardiac Studies Cardiac Studies 12/02/2022 Office Visit Pulmonary Jesus Bonilla MD [address] [facility] [place] [address] 12/16/2022 Telemedicine Psychiatry Hugo Alcantara MD [address] [facility] [place] [address] 01/13/2023 Procedure Only Endoscopy Shaneka Santiago MD 132 [place] [address] 03/17/2023 PulmDiagnostic Pulmonary Function West, Pft [address] [place] [address] Pending Results Name Type Priority Associated Diagnoses [...] exists LUNG CANCER SCREENING - USE SMARTSET 11592 Completed 03/16/2022 Influenza Vaccine (FLU shot) Completed [...] specified documented in this encounter Care Teams Crossband Layer Relationship Specialty Start Date End Date Roger Alexandra MD 132 [place] [address] PCP - General Family Medicine 12/29/19 documented as of this encounter
--- OUTSIDE RECORDS SUMMARY | 2023-07-25 04:26 | External Medical Summary | Summary of Care ---
Author Name Unknown Organization [place] [address] Care Team Providers Care V Belt Mold Assembler And Curer Name Role Phone Roger Alexandra MD Primary Care Provider [phone] [phone] Reason for Visit * Reason Comments Encounter Created in Error Encounter Details Date Type Department Care Team Description 10/20/2022 Drum Drier OperatorRn Case Management [address] [place] [address] Yara Morris, RN [...] clinic. 90 Tablet 3 02/16/2022 Active Nystatin 472372 UNIT/GM External Powder (Nyamyc) apply to affected [...] bedtime. 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 documented in this encounter Plan of Treatment Upcoming Encounters Date Type Specialty Care Team Description 10/23/2022 [facility] [place] [address] 60 [facility] [place] [facility] 11/18/2022 Therapy Psychiatry Rgoer Drake, PhD [address] [facility] [address] 11/26/2022 Cardiac Studies Cardiac Studies 12/02/2022 Office Visit Pulmonary Jesus Bonilla MD [address] [place] [address] 12/16/2022 Telemedicine Psychiatry Hugo Alcantara MD [address] [place] [address] 01/13/2023 Procedure Only Endoscopy Shaneka Santiago MD [address] [place] [address] 03/17/2023 PulmDiagnostic Pulmonary Function West, Pft [address] [place] [address] Health Maintenance Due Date Last Done [...] exists LUNG CANCER SCREENING - USE SMARTSET 85091 Completed 03/16/2022 Influenza Vaccine (FLU shot) Completed [...] examination documented in this encounter Care Teams V Belt Mold Assembler And Curer Relationship Specialty Start Date End Date Roger Alexandra MD [facility] [place] [address] PCP - General Family Medicine 12/29/19 documented as of this encounter
--- OUTSIDE RECORDS SUMMARY | 2023-07-25 04:26 | External Medical Summary ---
Author Name Unknown Address Unknown Organization K01:[facility] - [address] [facility] [address] [place] [address] Laboratory Report Ordering Provider Test Date Status VINAY CHEW 10/20/2022 09:00:39 Final Observation Date Value Abnormality Reference (Units ) Status Bacteria identified in Unspecified specimen by Culture 10/20/2022 09:00:39 [id number]^ESCHE RICHIA COLI Abnormal Final Performing Location [facility] [place] [address] [place] [address] Ordering Provider Test Date Status VINAY CHEW 10/20/2022 09:00:39 Final Observation Date Value Abnormality Reference (Units ) Status Ampicillin 10/20/2022 09:00:39 <=2 Susceptible Final Cefazolin 10/20/2022 09:00:39 <=4 Susceptible Final Cefepime susceptibility 10/20/2022 09:00:39 <=1 Susceptible Final Ceftriaxone suceptibility 10/20/2022 09:00:39 <=1 Susceptible Final Ciprofloxacin 10/20/2022 09:00:39 <=0.25 Susceptible Final Performing Location [facility] [place] [address] [facility] [address]
--- OUTSIDE RECORDS SUMMARY | 2023-07-25 04:26 | External Medical Summary | Summary of Care ---
Author Name Unknown Organization [place] [address] Care Team Providers Care Glass Mechanic Name Role Phone Roger Alexandra MD Primary Care Provider [phone] [phone] Reason for Visit * Reason Onset Date Comments Other 10/26/2022 Encounter Details Date Type Department Care Team Description 10/26/2022 Telephone [facility] [place] [address] [place] [id number] Hugo Alcantara MD [address] [place], [place] [id number] Other Allergies Active Allergy Reactions Severity Noted [...] clinic. 90 Tablet 3 02/16/2022 Active Nystatin 834399 UNIT/GM External Powder ([facility]) apply to affected area twice a day 15 g 1 05/19/2022 Active oxygen IN GASIndications:Welding Operator 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 respiratory failure (HCC),COPD, group [...] classification ([facility]),Chronic hypoxemic respiratory failure (HCC) Use with nebulized meds 1 Each 0 09/16/2022 Active Full Kit Nebulizer SetIndications:COPD , group D, by GOLD 2017 classification ([facility]),Chronic hypoxemic respiratory failure (HCC) Use with nebulizer 1 Each 0 09/16/2022 Active Baclofen 10 MG Oral Tablet (Lioresal)Indicatio [...] 10/21/2022 Active traMADol HCl 100 MG Oral TabletIndications:C hronic [...] for Anxiety. 90 Tablet 1 10/27/2022 Active clonazePAM 0.5 MG Oral Tablet (KlonoPIN) Take 1 Tablet (0.5 mg) by mouth in the morning and 1 Tablet (0.5 mg) before bedtime. 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 She feels the change from lorazepam to Klonopin has not been helpful and her anxiety sx are worse. Agreeable to dc Klonopin and restart lorazepam at same dose-- 0.5mg TID PRN anxiety. * Telephone Encounter - Blanche Wilcox LPN - 10/26/2022 1:54 PM EST Patient is asking for provider to reach out to her by phone flaquito, Patient is anxious, wanting to talk about other prescription options. Reach at number on file. documented in this encounter Plan of Treatment Upcoming Encounters Date Type Specialty Care Team Description 10/28/2022 [facility] Tele[facility]acy, [facility] 58 [address] [place] [address] 10/29/2022 Laboratory Laboratory [facility] [address] [place] [address] 11/18/2022 Therapy Psychiatry Roger Drake, PhD [address] [place] [address] 11/26/2022 Cardiac Studies Cardiac Studies 12/02/2022 Office Visit Pulmonary Jesus Bonilla MD [address] [place] [address] 12/16/2022 Telemedicine Psychiatry Hugo Alcantara MD [address] [place] [address] 01/13/2023 Procedure Only Endoscopy Shaneka Santiago MD 132 [facility] [place] [address] 03/17/2023 PulmDiagnostic Pulmonary Function West, Pft [address] [place] [address] Health Maintenance Due Date Last Done Comments [...] exists LUNG CANCER SCREENING - USE SMARTSET 11536 Completed 03/16/2022 Influenza Vaccine (FLU shot) Completed , 11/11/2021, 11/11/2021, Additional history exists GARDASIL-HPV IMMUNIZATION SERIES Aged Out No longer eligible based on patient's age to complete this topic MENINGOCOCCAL (MENACTRA/MENVEO) Aged Out No longer eligible based on patient's age to complete this topic documented as of this encounter Medical Devices Not on filedocumented as of this encounter Care Teams Glass Mechanic Relationship Specialty Start Date End Date Roger Alexandra MD 132 [place] [address] PCP - General Family Medicine 12/29/19 documented as of this encounter
--- OUTSIDE RECORDS SUMMARY | 2023-07-25 04:26 | External Medical Summary | Summary of Care ---
Author Name Unknown Organization [place] [address] Care Team Providers Care Nut Culler Name Role Phone Roger Alexandra MD Primary Care Provider +1 [phone] Reason for Visit * Reason Onset Date Comments Advice 10/20/2022 Encounter Details Date Type Department Care Team Description 10/20/2022 Senior Controls Analyst Telephone Family Practice [facility] 132 [facility] [place] [id number] Yara Morris, cake winder Allergies Active Allergy Reactions Severity Noted Date [...] clinic. 90 Tablet 3 02/16/2022 Active Nystatin 511255 UNIT/GM External Powder ([facility]) apply to affected area twice [...] bedtime. 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 See other encounter from today. * Telephone Encounter - Brittney Wilde DO - 10/20/2022 12:46 PM EST Please call Okay to increase bumex to 2mg daily x 2 days Should also increase potassium to 20MEQ BID those days Then return to regular dose (bumex 10mg daily, kcl 10meq BID) Check bmp on Wednesday thanks * Telephone Encounter - Yara Morris RN - 10/20/2022 11:22 AM EST Hannah nurse from [facility] visited Kimberly today, reports that her weight is up to 298lb. Last week HH nurse noted weight to be 291 lbs. O2 sats are 97% on oxygen. She also mentioned they did collect and submit a urine sample. Dr. Alexandra, Would you want to increase diuretics? Urine culture still pending. She is complaining of some burning with urination. Thank you (Hannah [facility] ph# [phone]) documented in this encounter Plan of Treatment Upcoming Encounters Date Type Specialty Care Team Description 10/23/2022 [facility] 58 [address] [place] [address] 11/18/2022 Therapy Psychiatry Roger Drake, PhD [address] [place] [address] 11/26/2022 Cardiac Studies Cardiac Studies 12/02/2022 Office Visit Pulmonary Jesus Bonilla MD [address] [place] [address] 12/16/2022 Telemedicine Psychiatry Hugo Alcantara MD [address] [place] [address] 01/13/2023 Procedure Only Endoscopy [facility]ka Santiago [facility] [address] 03/17/2023 PulmDiagnostic Pulmonary Function [place] 132 [facility] [place] [address] Scheduled Orders Name Type Priority Associated Diagnoses Orde r Schedule BASIC METABOLIC PANEL Lab Routine Chronic diastolic CHF (congestive heart failure) (HCC) Expected: 10/23/2022 (Approximate), Expires: 10/20/2023 Health Maintenance Due Date Last Done Comments [...] exists LUNG CANCER SCREENING - USE SMARTSET [address] Completed 03/16/2022 Influenza Vaccine (FLU shot) Completed , 11/11/2021, 11/11/2021, Additional history exists GARDASIL-HPV IMMUNIZATION SERIES Aged Out No longer eligible based on patient's age to complete this topic MENINGOCOCCAL (MENACTRA/MENVEO) Aged Out No longer eligible based on patient's age to complete this topic documented as of this encounter Medical Devices Not on filedocumented as of this encounter Visit Diagnoses Diagnosis Idiopathic cardiomyopathy (HCC)- Primary Other primary cardiomyopathies Chronic diastolic CHF (congestive heart failure) (HCC) Chronic diastolic heart failure documented in this encounter Care Teams Nut Culler Relationship Specialty Start Date End Date Roger Alexandra MD 132 [place] [address] PCP - General Family Medicine 12/29/19 documented as of this encounter
--- OUTSIDE RECORDS SUMMARY | 2023-07-25 04:26 | External Medical Summary | Summary of Care ---
Author Name Unknown Organization [facility] Address [place] [address] Care Team Providers Care Cashier Credit Name Role Phone Roger Alexandra MD Primary Care Provider [phone] [phone] Reason for Visit * Reason Comments Dosage Adjustment Via Phone (anticoag Cl inic) Encounter Details Date Type Department Care Team Description 10/21/2022 Anticoagulation Pharmacy Call Center [address] [facility] [place] [address] [facility] [address] [facility] [place] [place] [address] Anticoagulation management encounter* Allergies Active Allergy Reactions Severity Noted Date Comments Aspirin Unknown 12/12/2007 von Willebrand's disease Salicylates 03/01/2000 von Willebrand's disease documented as of this encounter (statuses as of 10/21/2022) Medications Medication Sig Dispensed Refills Start Date End Date Status Warfarin Sodium 5 MG Oral Tablet (Coumadin)Indications :Paroxysmal atrial fibrillation (HCC) Take by mouth 1 Tablet in the evening. OR As directed by coumadin clinic. 90 Tablet 3 02/16/2022 Active Nystatin 232565 UNIT/GM External Powder (Nyamyc) apply to affected [...] bedtime. 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:[employer] D, group D, by GOLD 2017 classification ([facility]),Chronic hypoxemic respiratory failure (HCC) Use with nebulized meds 1 Each 0 09/16/2022 Active Full Kit Nebulizer SetIndications:COPD, group D, by GOLD 2017 classification ([facility]),Chronic hypoxemic respiratory failure (HCC) Use [...] (HCC),COPD, group D, by GOLD 2017 classification ([facility]) 2.5 mg NEBULIZER PRN 03/10/2022 03/10/2023 Acti ve Albuterol Sulfate (Proventil) (5 MG/ML) 0.5% *conc* inhalation solution 2.5 mgIndications:Chronic hypoxemic respiratory failure (HCC),COPD, group D, by GOLD 2017 classification ([facility]) 2.5 mg NEBULIZER PRN 03/10/2022 03/10/2023 Acti ve documented as of this encounter (statuses as of 10/21/2022) Active Problems Problem Noted Date Decreased functional [...] as of this encounter (statuses as of 10/21/2022) Resolved Problems Problem Noted Date Resolved Date [...] as of this encounter (statuses as of 10/21/2022) Immunizations Name Administration Dates Next Due H1N1 [...] Progress Notes * Kim Mercado RPh - 10/21/2022 4:05 PM EST 10/21/2022 04:12 PM EST by Kim Mercado RPh 10/21/2022 04:12 PM EST by Kim Mercado [facility] Outgoing Kibmerly Kendall (Self) Remove - Spoke to Patient Received BPA: Bactrim DS x 3 days. INR drawn 10/19 was 0.9. Advised pt to only take 5mg today instead of bolus originally instructed. Pt states she is afraid to take Coumadin. When I tried to ask further, she said she didn't feel well and needed to go to bed. [facility] will follow up to see if pt would be a DOAC candidate. Per chart review, Henrik [facility] Kim Mercado Rph, Pharm.D. Clinical Pharmacist Telepharmacy [phone] 10/21/2022,4:17 PM documented in this encounter Plan of Treatment Upcoming Encounters Date Type Specialty Care Team Description 10/23/2022 Laboratory Laboratory Processing [facility], [facility] Mobile Home Draw [address] [place] [address] 10/23/2022 [facility] [address] [place] [address] 11/18/2022 Therapy Psychiatry Roger Drake, PhD [address] [place] [address] 11/26/2022 Cardiac Studies Cardiac Studies 12/02/2022 Office Visit Pulmonary Jesus Bonilla MD [address] [place] [facility] [place] [address] 12/16/2022 Telemedicine Psychiatry Hugo Alcantara MD [address] [place] [address] 01/13/2023 Procedure Only Endoscopy Shaneka Santiago MD [address] [place] [place] [address] 03/17/2023 PulmDiagnostic Pulmonary Function West, Pft [address] [place] [address] Health Maintenance Due Date Last Done Comments [...] exists LUNG CANCER SCREENING - USE SMARTSET 83171 Completed 03/16/2022 Influenza Vaccine (FLU shot) Completed [...] monitoring documented in this encounter Care Teams Cashier Credit Relationship Specialty Start Date End Date Roger Alexandra MD [address] [place] [address] PCP - General Family Medicine 12/29/19 documented as of this encounter
--- OUTSIDE RECORDS SUMMARY | 2023-07-25 04:26 | External Medical Summary | Summary of Care ---
Author Name Unknown Organization [facility] [address] Care Team Providers Care Communication Equipment Repairer Name Role Phone Roger Alexandra MD Primary Care Provider [phone] Encounter Details Date Type Department Care Team Description 10/21/2022 Refill [facility] [address] [place] [address] Hugo Alcantara MD [address] [place] [address] Allergies Active Allergy Reactions Severity Noted Date [...] clinic. 90 Tablet 3 02/16/2022 Active Nystatin 851706 UNIT/GM External Powder (Nyamyc) apply to affected [...] 09/16/2022 Active traMADol HCl 100 MG Oral TabletIndications:Ch ronic bilateral low back pain without sciatica take 1 tablet by mouth every 8 hours if needed for moderate pain to severe pain 90 Tablet 0 09/23/2022 Active Baclofen 10 MG Oral Tablet (Lioresal)Indication [...] before bedtime. 60 Tablet 1 10/12/2022 Active Sulfamethoxazole-Tri methoprim 800-160 MG Oral Tablet (Bactrim DS) Take 1 Tablet by mouth in the morning and 1 Tablet before bedtime. Do all this for 3 days. Until gone. 6 Tablet 0 10/20/2022 2 Active busPIRone HCl 10 MG Oral Tablet (Buspar) Take 2 Tablets (20 mg) by mouth in the morning and 2 Tablets (20 mg) before bedtime. 120 Tablet 2 10/21/2022 Active busPIRone HCl 10 MG Oral Tablet (Buspar) Take by mouth 2 Tablets in the morning AND 2 Tablets before bedtime. 120 Tablet 1 08/24/2022 2 Discontinue d(Refill) Hospital, Clinic, or Other Facility [...] Telephone Encounter - Hugo Alcantara MD - 10/21/2022 8:29 AM EST Signed Prescriptions: Disp Refills busPIRone HCl 10 MG Oral Tablet (Buspar) 120 Ta*2 Sig: Take 2 Tablets (20 mg) by mouth in the morning and 2 Tablets (20 mg) before bedtime. Authorizing Provider: HUGO ALCANTARA * Telephone Encounter - Dov Navarrete RN - 10/21/2022 7:57 AM EST Pharmacy requesting refill on Buspirone. Medication was last filled on 08/24 with 1 refills. Patient last seen on 10/12 with return appointment scheduled for 12/16. Patient had 0 cancelled appointmentsand 0 NO SHOW appointments. documented in this encounter Plan of Treatment Upcoming Encounters Date Type Specialty Care Team Description 10/23/2022 Anticoagulation Pharmacy Telepharmacy, [facility] [address] [place] [address] 11/18/2022 Therapy Psychiatry Roger Drake, PhD [address] [place] [address] 11/26/2022 Cardiac Studies Cardiac Studies 12/02/2022 Office Visit Pulmonary Jesus Bonilla MD [address] [place] [address] 12/16/2022 Telemedicine Psychiatry uHgo Alcantara MD [address] [place] [address] 01/13/2023 Procedure Only Endoscopy Shaneka Santiago MD 132 [place] [address] 03/17/2023 PulmDiagnostic Pulmonary Function West, [address] [place] [address] Health Maintenance Due Date Last Done [...] exists LUNG CANCER SCREENING - USE SMARTSET 285[address] Completed 03/16/2022 Influenza Vaccine (FLU shot) Completed , 11/11/2021, 11/11/2021, Additional history exists GARDASIL-HPV IMMUNIZATION SERIES Aged Out No longer eligible based on patient's age to complete this topic MENINGOCOCCAL (MENACTRA/MENVEO) Aged Out No longer eligible based on patient's age to complete this topic documented as of this encounter Medical Devices Not on filedocumented as of this encounter Care Teams Communication Equipment Repairer Relationship Specialty Start Date End Date Roger Alexandra MD [address] [place] [address] PCP - General Family Medicine 12/29/19 documented as of this encounter
--- OUTSIDE RECORDS SUMMARY | 2023-07-25 04:26 | External Medical Summary ---
Author Name Unknown Address Unknown Organization [facility] [address] [place] [address] Laboratory Report Ordering Provider Test Date Status SUMAN STANFORD 10/23/2022 09:53:00 Final Observation Date Value Abnormality Reference (Units ) Status PT 10/23/2022 09:53:00 13.1 11.6-15.2 (seconds) Final INR 10/23/2022 09:53:00 1.0 0.8-1.2 Final Performing Location [facility] [address] [place] [address]
--- OUTSIDE RECORDS SUMMARY | 2023-07-25 04:26 | External Medical Summary ---
Author Name Unknown Address Unknown Organization [facility] [address] [place] [address] Laboratory Report Ordering Provider Test Date Status DEJA CROUCH 10/23/2022 09:53:00 Final Observation Date Value Abnormality Reference (Units ) Status BUN 10/23/2022 09:53:00 19 6-20 (mg/dL) Final Creatinine 10/23/2022 09:53:00 0.9 0.5-1.0 (mg/dL) Final Glomerular filtration rate/1.73 sq M.predicted [Volume Rate/Area] in Serum, Plasma or Blood by Creatinine-based formula (CKD-EPI) 10/23/2022 09:53:00 74 >=60 (mL/min) Final Performing Location [facility] [address] [place] [address]
--- OUTSIDE RECORDS SUMMARY | 2023-07-25 04:26 | External Medical Summary | Summary of Care ---
Author Name Unknown Organization [place] [address] Care Team Providers Care Rod Placer Name Role Phone Jeevan Mclean MD Primary Care Provider [phone] [phone] Reason for Visit * Reason Onset Date Comments Medication Refill 10/21/2022 Encounter Details Date Type Department Care Team Description 10/21/2022 Refill Family Practice [facility] [address] [place] [address] Jeevan Mclean MD 132 [facility] [place] [address] Chronic bilateral low back pain without sciatica [...] clinic. 90 Tablet 3 02/16/2022 Active Nystatin 087022 UNIT/GM External Powder (Nyamyc) apply to affected [...] D, by GOLD 2017 classification ([facility]),Chronic hypoxemic respiratory failure ([facility]) Use with nebulized meds 1 Each 0 09/16/2022 Active Full Kit Nebulizer SetIndications:COPD, group D, by GOLD 2017 classification ([facility]),Chronic hypoxemic respiratory failure ([facility]) Use with nebulizer 1 Each 0 [...] severe pain 90 Tablet 0 10/21/2022 Active traMADol HCl 100 MG Oral TabletIndications:Ch ronic bilateral low back pain without sciatica take 1 tablet by mouth every 8 hours if needed for moderate pain to severe pain 90 Tablet 0 09/23/2022 2 Discontinue d(Refill) Hospital, Clinic, or Other Facility Administered Medication Ordered Dose Route Frequency Start Date End Date Status Albuterol Sulfate (Proventil) (2.5 MG/3ML) 0.083% inhalation solution 2.5 mgIndications:Chronic hypoxemic respiratory failure (HCC),COPD, group D, by GOLD 2017 classification ([facility]) 2.5 mg NEBULIZER PRN 03/10/2022 03/10/2023 Acti ve Albuterol Sulfate (Proventil) (5 MG/ML) 0.5% *conc* inhalation solution 2.5 mgIndications:Chronic hypoxemic respiratory failure (HCC),COPD, group D, by GOLD 2017 classification ([facility]) 2.5 mg NEBULIZER PRN 03/10/2022 03/10/2023 [...] Telephone Encounter - Jeevan Mclean MD - 10/21/2022 10:44 AM ESTSigned Prescriptions: Disp Refills traMADol HCl 100 MG Oral Tablet 90 Tab*0 Sig: take 1 tablet by mouth every 8 hours if needed for moderate pain to severe pain Authorizing Provider: JEEVAN MCLEAN * Telephone Encounter - Yara Morris RN - 10/21/2022 10:26 AM EST Pt left a VM asking for this refill. Ok to send Dr. Mclean? Thank you documented in this encounter Plan of Treatment Upcoming Encounters Date Type Specialty Care Team Description 10/23/2022 [facility] [address] [place] [address] 11/18/2022 Therapy Psychiatry Jeevan Drake, PhD [address] [place] [address] 11/26/2022 Cardiac Studies Cardiac Studies 12/02/2022 Office Visit Pulmonary Jesus Bonilla MD [address] [place] [address] 12/16/2022 Telemedicine Psychiatry Hugo Alcantara MD [address] [place] [address] 01/13/2023 Procedure Only Endoscopy Shaneka Santiago MD [address] [place] [address] 03/17/2023 PulmDiagnostic Pulmonary Function West, [address] [place] [address] Health Maintenance Due Date Last Done Comments [...] exists LUNG CANCER SCREENING - USE SMARTSET 647[address] Completed 03/16/2022 Influenza Vaccine (FLU shot) Completed [...] sciatica documented in this encounter Care Teams Rod Placer Relationship Specialty Start Date End Date Jeevan Mclean MD [address] [place] [address] PCP - General Family Medicine 12/29/19 documented as of this encounter
--- OUTSIDE RECORDS SUMMARY | 2023-07-25 04:27 | External Medical Summary ---
Author Name Unknown Address Unknown Organization [facility] [address] [place] [address] Laboratory Report Ordering Provider Test Date Status SUMAN STANFORD 10/06/2022 09:17:00 Final Observation Date Value Abnormality Reference (Units ) Status PT 10/06/2022 09:17:00 59.1 Above high normal 11 .6-15.2 (seconds) Final Performing Location [facility] [address] [place] [address]
--- OUTSIDE RECORDS SUMMARY | 2023-07-25 04:27 | External Medical Summary | Summary of Care ---
Author Name Unknown Organization [place] [address] Care Team Providers Care Metal Filer Name Role Phone Roger Alexandra MD Primary Care Provider [phone] [phone] Reason for Visit * Reason Onset Date Comments Medication Refill 10/05/2022 Encounter Details Date Type Department Care Team Description 10/05/2022 Refill Psychiatry, [facility] [address] [place] [address] Hugo Alcantara MD [address] [place], [place] [address] Allergies Active Allergy Reactions Severity Noted Date Comments Aspirin Unknown 12/12/2007 von Willebrand's disease Salicylates 03/01/2000 von Willebrand's disease documented as of this encounter (statuses as of 10/05/2022) Medications Medication Sig Dispensed Refills Start Date End Date Status Warfarin Sodium 5 MG Oral Tablet (Coumadin)Indication s:Paroxysmal atrial fibrillation (HCC) Take by mouth 1 Tablet in the evening. OR As directed by coumadin clinic. 90 Tablet 3 02/16/2022 Active Nystatin 371828 UNIT/GM External Powder (Ncamyc) apply to affected area twice a day [...] before bedtime. 30 Tablet 2 08/10/2022 Active LORazepam 0.5 MG Oral Tablet (Ativan) Take by mouth 1 Tablet as needed in the morning AND 1 Tablet as needed at noon AND 1 Tablet as needed in the evening for Anxiety. Do not start before August 13, 2022. 90 Tablet 1 08/13/2022 Active busPIRone HCl 10 MG Oral Tablet (Buspar) Take by mouth 2 Tablets in the morning AND 2 Tablets before bedtime. 120 Tablet 1 08/24/2022 Active guaiFENesin ER 600 MG Oral Tablet Extended Release 12 Hour (Humibid LA) Take by mouth 600 mg in the morning AND 600 mg before bedtime. 0 Active Omeprazole 20 MG Oral Capsule Delayed Release (PriLOSEC) Take by mouth 1 Capsule in the morning AND 1 Capsule before bedtime. 60 Capsule 0 09/07/2022 Active Disposable Brief X-LargeIndications:O veractive bladder Attends [...] before bedtime. 60 Capsule 5 09/30/2022 Active Gabapentin 300 MG Oral Capsule (Neurontin) Take 1 Capsule (300 mg) by mouth at bedtime. 30 Capsule 1 10/05/2022 Active hydrOXYzine HCl 25 MG Oral Tablet Take 1 tablet by mouth twice daily 60 Tablet 5 10/05/2022 Active hydrOXYzine HCl 25 MG Oral Tablet Take by mouth 25 mg as needed in the morning AND 25 mg as needed at noon AND 25 mg as needed in the evening. 0 Discontinue d(Refill) Hospital, Clinic, or Other Facility Administered Medication Ordered Dose Route Frequency Start Date End Date Status Albuterol Sulfate (Proventil) (2.5 MG/3ML) 0.083% inhalation solution 2.5 mgIndications:Chronic hypoxemic respiratory failure (HCC),COPD, group D, by GOLD 2017 classification ([facility]) 2.5 mg NEBULIZER PRN 03/10/2022 03/10/2023 Acti ve Albuterol Sulfate (Proventil) (5 MG/ML) 0.5% *conc* inhalation solution 2.5 mgIndications:Chronic hypoxemic respiratory failure (HCC),COPD, group D, by GOLD 2017 classification ([facility]) 2.5 mg NEBULIZER PRN 03/10/2022 03/10/2023 Acti ve documented as of this encounter (statuses as of 10/05/2022) Active Problems Problem Noted Date Decreased functional [...] as of this encounter (statuses as of 10/05/2022) Resolved Problems Problem Noted Date Resolved Date [...] 03/16/2005 03/14/2007 Medical home patient encounter 07/31/2004 1 11/29/2021 CVA 07/31/2004 02/28/2009 Overview: Modified per CVA [...] as of this encounter (statuses as of 10/05/2022) Immunizations Name Administration Dates Next Due H1N1 [...] encounter Miscellaneous Notes * Telephone Encounter - COY Hensley - 10/05/2022 4:57 PM ESTSigned Prescriptions: Disp Refills hydrOXYzine HCl 25 MG Oral Tablet 60 Tab*5 Sig: Take 1 tablet by mouth twice daily Authorizing Provider: SALVADOR ESTRADA * Telephone Encounter - Vignesh Martin [facility] - 10/05/2022 4:31 PM EST Pt requesting refill, confirmed dose with pt, 25 mg BID, please approve if appropriate Thanks, Vignesh Martin, PharmD Clinical Pharmacist [facility] [phone] 10/05/2022,4:31 PM * Telephone Encounter - Vignesh Martin [facility] - 10/05/2022 4:29 PM EST Did you pend patient's preferred pharmacy and medication before forwarding?yes Pharmacy: [id number] Pending Prescriptions: Disp Refills hydrOXYzine HCl 25 MG Oral Tablet 60 Tab*5 Sig: Take 1 tablet by mouth twice daily Last Visit: Visit date not found (in office), Visit date not found (telemedicine) Next Visit: Visit date not found If no future appointments scheduled, and last appointment is greater than a year ago, please schedule patient for a follow-up appointment Last date the medication was ordered: historical Is this request for a controlled substance?No [...] Labs: Lab Results Component Value Date/Time CREAT 0.7 01/15/2022 05:45 AM CREAT 0.77 11/21/2021 12:00 AM CREAT 0.7 10/17/2020 03:40 PM POTASSIUM 3.9 01/15/2022 05:45 AM POTASSIUM 2.8 (A) 11/21/2021 12:00 AM [...] Encounters Date Type Specialty Care Team Description 10/06/2022 Laboratory Laboratory Processing [facility] Mobile Home Draw [address] [place] [address] 10/07/2022 [facility] [address] [place] [address] 10/12/2022 Telemedicine Psychiatry Hugo Alcantara MD [address] [place] [address] 11/18/2022 Therapy Psychiatry Roger Drake, PhD [address] [place] [address] 11/26/2022 Cardiac Studies Cardiac Studies 12/02/2022 Office Visit Pulmonary Jesus Bonilla MD [address] [place] [facility] [place] [address] 01/13/2023 Procedure Only Endoscopy Shaneka Santiago MD [address] [place] [address] 03/17/2023 PulmDiagnostic Pulmonary Function [place], [address] [place] [address] Health Maintenance Due Date Last Done Comments Hepatitis B (1 of 3 - 3-dose series) 1960 COVID-19 Vaccine (#1) 1960 HIV Screening 1975 Hepatitis C Screening 1978 Zoster Vaccines (1 of 2) 2010 DTaP,Tdap,and [...] 11/12/2025 11/12/2020, 05/22/2013, 08/21/2011, Additional history exists Pneumococcal Vaccine: Pediatrics (0 to 5 Years) and At-Risk Patients (6 to 64 Years) Completed 03/20/2009 LUNG CANCER SCREENING - USE SMARTSET 20[address] Completed 03/16/2022 Influenza Vaccine (FLU shot) Completed , 11/11/2021, 11/11/2021, Additional history exists GARDASIL-HPV IMMUNIZATION SERIES Aged Out No longer eligible based on patient's age to complete this topic MENINGOCOCCAL (MENACTRA/MENVEO) Aged Out No longer eligible based on patient's age to complete this topic documented as of this encounter Medical Devices Not on filedocumented as of this encounter Care Teams Metal Filer Relationship Specialty Start Date End Date Roger Alexandra MD [address] [place] [address] PCP - General Family Medicine 12/29/19 documented as of this encounter
--- OUTSIDE RECORDS SUMMARY | 2023-07-25 04:27 | External Medical Summary | Summary of Care ---
Author Name Unknown Organization [place] [address] Care Team Providers Care Juke Box Servicer Name Role Phone Jeevan Mclean MD Primary Care Provider [phone] Reason for Visit * Reason Comments eRx-Medication Refill Encounter Details Date Type Department Care Team Description 10/03/2022 Refill Family Practice [facility] [address] [place] [id number] Jeevan Mclean MD [address] [place] [address] Allergies Active Allergy Reactions Severity Noted Date [...] coumadin clinic. 90 Tablet 3 2 Active Nystatin 600524 UNIT/GM External Powder (Nyamyc) apply to affected area twice a day 15 g 1 2 Active oxygen IN GASIndications:Chr onic hypoxemic respiratory 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 1 Each 0 2 Active Isosorbide Mononitrate ER 30 MG Oral Tablet Extended Release 24 Hour (Imdur) take 1 tablet by mouth daily 30 Tablet 5 2 Active Mirtazapine 30 MG Oral Tablet (Remeron) Take by mouth 1 Tablet before bedtime. 30 Tablet 2 2 Active LORazepam 0.5 MG Oral Tablet (Ativan) Take by mouth 1 Tablet as needed in the morning AND 1 Tablet as needed at noon AND 1 Tablet as needed in the evening for Anxiety. Do not start before August 13, 2022. 90 Tablet 1 2 Active busPIRone HCl 10 MG Oral Tablet (Buspar) Take by mouth 2 Tablets in the morning AND 2 Tablets before bedtime. 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 0 10/05/20 22 Discontinued(Ref ill) Omeprazole 20 MG Oral Capsule Delayed Release (PriLOSEC) Take by mouth 1 Capsule in the morning AND 1 Capsule before bedtime. 60 Capsule 0 2 10/05/20 22 Discontinued Hospital, Clinic, or Other Facility Administered Medication Ordered Dose Route Frequency Start Date End Date Status Albuterol Sulfate (Proventil) (2.5 MG/3ML) 0.083% inhalation solution 2.5 mgIndications:Chronic hypoxemic respiratory failure (HCC),COPD, group D, by GOLD 2017 classification ([facility]) 2.5 mg NEBULIZER PRN 03/10/2022 03/10/2023 Acti ve Albuterol Sulfate (Proventil) (5 MG/ML) 0.5% *conc* inhalation solution 2.5 mgIndications:Chronic hypoxemic respiratory failure (HCC),COPD, group D, by GOLD 2017 classification ([facility]) 2.5 mg NEBULIZER PRN 03/10/2022 [...] Telephone Encounter - Jeevan Mclean MD - 10/05/2022 5:35 PM ESTSigned Prescriptions: Disp Refills Omeprazole 20 MG Oral Capsule Delayed Rele*60 Cap*5 Sig: take 1 capsule by mouth IN THE MORNING and 1 capsule BEFORE BEDTIME Authorizing Provider: JEEVAN MCLEAN * Telephone Encounter - Vignesh Martin [facility] - 10/05/2022 4:28 PM ESTPending Prescriptions: Disp Refills Omeprazole 20 MG Oral Capsule Delayed Rele*60 Cap*5 Sig: take 1 capsule by mouth IN THE MORNING and 1 capsule BEFORE BEDTIME * Telephone Encounter - Vignesh Martin [facility] - 10/05/2022 4:22 PM EST Trial of omeprazole was initiated on 09/07/22 by gastro for chest pressure x 2 weeks, pt was encouraged to follow up with PCP. I spoke with pt today, states she believes the medication is helping her. Please approve refills if appropriate Thanks, Vignesh Martin, PharmD Clinical Pharmacist [facility] [phone] 10/05/2022,4:28 PM * Telephone Encounter - Samantha Qureshi CPhT - 10/05/2022 1:43 PM ESTPending Prescriptions: Disp Refills Omeprazole 20 MG Oral Capsule Delayed Rele*60 Cap*0 Sig: take 1 capsule by mouth IN THE MORNING and 1 capsule BEFORE BEDTIME * Telephone Encounter - Samantha Qureshi CPhT - 10/05/2022 1:42 PM EST Did you pend patient's preferred pharmacy and medication before forwarding?yes Pharmacy: [id number] Pending Prescriptions: Disp Refills Omeprazole 20 MG Oral Capsule Delayed Rel*60 Cap*0 Sig: take 1 capsule by mouth IN THE MORNING and 1 capsule BEFORE BEDTIME Last Visit: 09/07/2022 (in office), Visit date not found (telemedicine) Next Visit: Visit date not found If no future appointments scheduled, and last appointment is greater than a year ago, please schedule patient for a follow-up appointment Last date the medication was ordered: 09.07.22 Is this request for a controlled substance?No [...] found in Results Review. Patient Phone Numbers [facility] [phone] Labs: Lab Results Component Value Date/Time CREAT [...] Care Team Description 10/06/2022 Laboratory Laboratory Processing [facility], [facility] Draw [address] [place] [address] 10/07/2022 [facility] [address] [place] [address] 10/12/2022 Telemedicine Psychiatry Hugo Alcantara MD [address] [place] [address] 11/18/2022 Therapy Psychiatry Jeevan Drake, PhD [address] [place] [address] 11/26/2022 Cardiac Studies Cardiac Studies 12/02/2022 Office Visit Pulmonary [facility] [address] [facility] [id number] 01/13/2023 Procedure Only Endoscopy Shaneka Santiago MD [address] [place] [address] 03/17/2023 PulmDiagnostic Pulmonary Function [place], [address] [place] [address] Health Maintenance Due Date Last Done Comments [...] 03/20/2009 LUNG CANCER SCREENING - USE SMARTSET [id number] Completed 03/16/2022 Influenza Vaccine (FLU shot) Completed , 11/11/2021, 11/11/2021, Additional history exists GARDASIL-HPV IMMUNIZATION SERIES Aged Out No longer eligible based on patient's age to complete this topic MENINGOCOCCAL (MENACTRA/MENVEO) Aged Out No longer eligible based on patient's age to complete this topic documented as of this encounter Medical Devices Not on filedocumented as of this encounter Care Teams Juke Box Servicer Relationship Specialty Start Date End Date Jeevan Mclean MD [address] [place] [address] PCP - General Family Medicine 12/29/19 documented as of this encounter
--- OUTSIDE RECORDS SUMMARY | 2023-07-25 04:27 | External Medical Summary | Summary of Care ---
Author Name Unknown Organization [facility] Address [place] [address] Care Team Providers Care Methods Analyst Name Role Phone Roger Alexandra MD Primary Care Provider [phone] Reason for Visit * Reason Comments Dosage Adjustment Via Phone (anticoag Cl inic) Encounter Details Date Type Department Care Team Description 10/13/2022 Anticoagulation Pharmacy Call Center [address] [facility] [place] [address] [facility] [address] [facility] [place] [address] Anticoagulation management encounter* Allergies Active Allergy Reactions Severity Noted Date Comments Aspirin Unknown 12/12/2007 von Willebrand's disease Salicylates 03/01/2000 von Willebrand's disease documented as of this encounter (statuses as of 10/13/2022) Medications Medication Sig Dispensed Refills Start Date End Date Status Warfarin Sodium 5 MG Oral Tablet (Coumadin)Indications :Paroxysmal atrial fibrillation (HCC) Take by mouth 1 Tablet in the evening. OR As directed by coumadin clinic. 90 Tablet 3 02/16/2022 Active Nystatin 915415 UNIT/GM External Powder (Nyamyc) apply to affected [...] bedtime. 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 ([facility]),Chronic hypoxemic respiratory failure (HCC) Use with nebulized meds 1 Each 0 09/16/2022 Active Full Kit Nebulizer SetIndications:COPD, group D, by GOLD 2017 classification ([facility]),Chronic hypoxemic respiratory failure (HCC) Use with nebulizer [...] as of this encounter (statuses as of 10/13/2022) Active Problems Problem Noted Date Decreased functional [...] as of this encounter (statuses as of 10/13/2022) Resolved Problems Problem Noted Date Resolved Date [...] as of this encounter (statuses as of 10/13/2022) Immunizations Name Administration Dates Next Due H1N1 [...] this encounter Progress Notes * Vignesh Whitaker, surgical product sales consultant - 10/13/2022 12:07 PM EST Contacts Type Contact Phone/Fax 10/13/2022 12:04 PM EST Phone (Outgoing) Kimberly Kendall (Self) [phone] (M) Patient Findings Negatives: Signs/symptoms of thrombosis, [...] as noted by Pharmacist: Yes Vignesh Whitaker surgical product sales consultant 10/13/2022, 12:08 PM * Kim Mercado [facility] - 10/13/2022 9:15 AM EST Images from the original note were not included. Coumadin Clinic (region specific) Current Warfarin Dose As of 10/13/2022 Warfarin maintenance plan: 5 mg (5 mg x 1) every day; Starting 10/13/2022 INR Result As of 10/13/2022 INR goal: 2.0-3.0 INR used for dosin.7 (10/12/2022) Warfarin Plan As of 10/13/2022 Full warfarin instructions: 10/13: 7.5 mg; Otherwise 5 mg every day; Starting 10/13/2022 Next INR check: 10/19/2022 Repeat PT/INR in 1 week(s) Weekly dose: not changed Additional Dosing Information: Description [facility] Also sent MyG after trying to call 01/13/23 - [employer] to contact patient with dose instructions as noted. Kim Mercado [facility] 10/13/2022, 9:16 AM documented in this encounter Plan of Treatment Upcoming Encounters Date Type Specialty Care Team Description 10/20/2022 [facility] [address] [facility] [address] 11/18/2022 Therapy Psychiatry Roger Drake, PhD [address] [place] [address], [place] [address] 11/26/2022 Cardiac Studies Cardiac Studies 12/02/2022 Office Visit Pulmonary Jesus Bonilla MD [address] [place] [address] 12/16/2022 Telemedicine Psychiatry Hugo Alcantara MD [address] [place] [facility] [address] 01/13/2023 Procedure Only Endoscopy [facility]ka Santiago MD [address] [facility] [address] 03/17/2023 PulmDiagnostic Pulmonary Function [place], [address] [facility] [place] [address] Health Maintenance Due Date Last Done Comments [...] exists LUNG CANCER SCREENING - USE SMARTSET 59853 Completed 03/16/2022 Influenza Vaccine (FLU shot) Completed [...] monitoring documented in this encounter Care Teams Methods Analyst Relationship Specialty Start Date End Date Roger Alexandra MD [address] [address] PCP - General Family Medicine 12/29/19 documented as of this encounter
--- OUTSIDE RECORDS SUMMARY | 2023-07-25 04:27 | External Medical Summary | Summary of Care ---
Author Name Unknown Organization [place] [address] Care Team Providers Care Controlled Area Checker Name Role Phone Roger Alexandra MD Primary Care Provider [phone] Reason for Visit * Reason Comments case management Encounter Details Date Type Department Care Team Description 10/14/2022 Client Engagement SpecialistSupervisor Estimator And Drafter[address] [place] [address] Yara Morris, RN Medical home patient encounter* Allergies Active Allergy Reactions Severity Noted Date Comments Aspirin Unknown 12/12/2007 von Willebrand's disease Salicylates 03/01/2000 von Willebrand's disease documented as of this encounter (statuses as of 10/14/2022) Medications Medication Sig Dispensed Refills Start Date End Date Status Warfarin Sodium 5 MG Oral Tablet (Coumadin)Indications :Paroxysmal atrial fibrillation (HCC) Take by mouth 1 Tablet in the evening. OR As directed by coumadin clinic. 90 Tablet 3 02/16/2022 Active Nystatin 791131 UNIT/GM External Powder (Nyamyc) apply to affected [...] bedtime. 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 Follow-up Routine 2. Attempted Phone Call First Attempt 3. Call Unanswered Left Voicemail 4. Plan To attempt Follow-up documented in this encounter Plan of Treatment Upcoming Encounters Date Type Specialty Care Team Description 10/19/2022 Laboratory Laboratory Processing [facility], [facility] Draw [address] [facility] [place] [address] 10/20/2022 [facility] [address] [facility] [place] [address] 11/18/2022 Therapy Psychiatry Roger Drake, PhD [address] [place] [address] 11/26/2022 Cardiac Studies Cardiac Studies 12/02/2022 Office Visit Pulmonary Jesus Bonilla MD [address] [place] [address] 12/16/2022 Telemedicine Psychiatry Hugo Alcantara MD [address] [place] [address] 01/13/2023 Procedure Only Endoscopy Shaneka Santiago MD [address] [place] [address] 03/17/2023 PulmDiagnostic Pulmonary Function [place], [address]ft [address] [place] [address] Health Maintenance Due Date Last Done Comments [...] exists LUNG CANCER SCREENING - USE SMARTSET [id number] Completed 03/16/2022 Influenza Vaccine (FLU shot) Completed [...] examination documented in this encounter Care Teams Controlled Area Checker Relationship Specialty Start Date End Date Roger Alexandra MD [address] [place] [address] PCP - General Family Medicine 12/29/19 documented as of this encounter
--- OUTSIDE RECORDS SUMMARY | 2023-07-25 04:27 | External Medical Summary | Summary of Care ---
Author Name Unknown Organization [place] [address] Care Team Providers Care Equity Structurer Name Role Phone Roger Alexandra MD Primary Care Provider [phone] Reason for Referral * Precert (Within 10 days (routine)) - Authorized Specialty Diagnoses / Procedures Referred By Contac t Referred To Contact Cardiac Studies Diagnoses Idiopathic cardiomyopathy (HCC) Chronic diastolic CHF (congestive heart failure) (HCC) Procedures ECHO, COMPLETE (2D), TRANS-THORACIC Roger Alexandra MD [address] [address] Referral ID Status Reason Start Date Expiration Date V isits Requested Visits Authorized [id number] Authorized Precert 09/30/2022 999 999 Reason for Visit * Reason Comments Routine Exam Follow up Encounter Details Date Type Department Care Team Description 09/30/2022 Office Visit Family Practice [facility] [address] [address] Roger Alexandra MD [address] [address] Chronic hypoxemic respiratory failure (HCC)*; Acquired hypothyroidism; COPD, group D, by GOLD 2017 classification (HCC); Obstructive sleep apnea; Idiopathic cardiomyopathy (HCC); Paroxysmal atrial fibrillation (HCC); Chronic diastolic CHF (congestive heart failure) (HCC); Irritable bowel syndrome with diarrhea; Super obese; Depression with anxiety; History of multiple strokes; PTSD (post-traumatic stress disorder); Decreased functional mobility Allergies Active Allergy Reactions Severity Noted Date Comments Aspirin Unknown 12/12/2007 von Willebrand's disease Salicylates 03/01/2000 von Willebrand's disease documented as of this encounter (statuses as of 10/15/2022) Medications Medication Sig Dispensed Refills Start Date End Date Status Warfarin Sodium 5 MG Oral Tablet (Coumadin)Indicati ons:Paroxysmal atrial fibrillation (HCC) Take by mouth 1 Tablet in the evening. OR As directed by coumadin clinic. 90 Tablet 3 2 Active Nystatin 444318 UNIT/GM External Powder (Nyamyc) apply to affected area twice a day 15 g 1 2 Active oxygen IN GASIndications:Chr onic hypoxemic respiratory failure (HCC),COPD, group D, by GOLD 2017 classification ([facility]) Use 2 LPM at rest, 4 LPM with exertion and with sleep. 1 Each 0 2 Active Isosorbide Mononitrate ER 30 MG Oral Tablet Extended Release 24 Hour (Imdur) take 1 tablet by mouth daily 30 Tablet 5 2 Active Mirtazapine 30 MG Oral Tablet (Remeron) Take by mouth 1 Tablet before bedtime. 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 60 Capsule 5 2 Active Furosemide 20 MG Oral Tablet (Lasix) Take by mouth 1 Tablet daily as needed (lower leg swelling). 30 Tablet 11 2 09/30/20 22 Discontinued(Dis charged) Gabapentin 300 MG Oral Capsule (Neurontin) Take by mouth 1 Capsule before bedtime. 30 Capsule 1 2 10/05/20 22 Discontinued(Ref ill) LORazepam 0.5 MG Oral Tablet (Ativan) Take by mouth 1 Tablet as needed in the morning AND 1 Tablet as needed at noon AND 1 Tablet as needed in the evening for Anxiety. Do not start before August 13, 2022. 90 Tablet 1 2 10/12/20 22 Discontinued hydrOXYzine HCl 25 MG Oral Tablet Take [...] as of this encounter (statuses as of 10/15/2022) Active Problems Problem Noted Date Decreased functional [...] as of this encounter (statuses as of 10/15/2022) Resolved Problems Problem Noted Date Resolved Date [...] as of this encounter (statuses as of 10/15/2022) Immunizations Name Administration Dates Next Due H1N1 [...] Sign Reading Time Taken Comments Blood Pressure 108/68 09/30/2022 8:55 AM EST Pulse 105 09/30/2022 8:55 AM EST Temperature 36.7 C (98 F) 09/30/2022 8:55 AM EST Respiratory Rate - - Oxygen Saturation 95% 09/30/2022 8:55 AM EST Inhaled Oxygen Concentration - - Weight 133.4 kg (294 lb) 09/30/2022 8:55 AM EST Height 158.8 cm (5' 2.5") 09/30/2022 8:55 AM EST Body Mass Index 52.92 09/30/2022 8:55 AM EST documented in this encounter Progress Notes * Kim De Guzman LPN - 10/15/2022 11:42 AM EST Patient has upper respiratory condition, COPD that requires her to be elevated 30 degrees most of the time. Patient has a condition that requires frequent repositioning of body in ways not feasible with ordinary bed in order to alleviate pain. * Roger Alexandra MD - 09/30/2022 10:34 AM EST SUBJECTIVE: Kimberly Kendall is a 62 year old female. Chief Complaint Patient presents with Routine Exam Follow up HPI: This is a morbidly obese immobile oxygen dependent female with multiple medical comorbidities who comes in accompanied by her daughter per usual routine. She notes her legs have been more swollen lately. Her breathing remains at baseline. She is on continuous O2. She is very sedentary. She does notexercise. Case management follows her as well. Patient Active Problem List Diagnosis Code Irritable bowel syndrome with diarrhea K58.0 Depression with anxiety F41.8 Obstructive sleep apnea G47.33 Von Willebrand disease D68.00 Idiopathic cardiomyopathy ([facility]) I42.9 Acquired hypothyroidism E03.9 Super obese E66.9 Chronic bilateral low back pain without sciatica M54.50, G89.29 Paroxysmal atrial fibrillation ([facility]) I48.0 Drug-seeking behavior Z76.5 History of multiple strokes Z86.73 Chronic diastolic CHF (congestive heart failure) ([facility]) I50.32 PTSD (post-traumatic stress disorder) F43.10 COPD, group D, by GOLD 2017 classification ([facility]) J44.9 Chronic hypoxemic respiratory failure ([facility]) J96.11 History of narcotic addiction ([facility]) F11.21 Decreased functional mobility R26.89 Current Outpatient Medications Medication Sig Dispense Refill Bumetanide 1 MG Oral Tablet Take 1 Tablet (1 mg) by mouth in the morning. 90 Tablet 3 Potassium Chloride ER 10 MEQ Oral Capsule Extended Release Take 1 Capsule (10 mEq) by mouth in the morning and 1 Capsule (10 mEq) before bedtime. 60 Capsule 5 Warfarin Sodium 5 MG Oral Tablet (Coumadin) Take by mouth 1 Tablet in the evening. OR As directed by coumadin clinic. 90 Tablet 3 Nystatin 891429 UNIT/GM External Powder ([facility]) apply to affected area twice a day 15 g 1 oxygen IN GAS Use 2 LPM at rest, 4 LPM with exertion and with sleep. 1 Each 0 Isosorbide Mononitrate ER 30 MG Oral Tablet Extended Release 24 Hour (Imdur) take 1 tablet by mouth daily 30 Tablet 5 Gabapentin 300 MG Oral Capsule (Neurontin) Take by mouth 1 Capsule before bedtime. 30 Capsule 1 Mirtazapine 30 MG Oral Tablet (Remeron) Take by mouth 1 Tablet before bedtime. 30 Tablet 2 LORazepam 0.5 MG Oral Tablet (Ativan) Take by mouth 1 Tablet as needed in the morning AND 1 Tablet as needed at noon AND 1 Tablet as needed in the evening for Anxiety. Do not start before August 13, 2022. 90 Tablet 1 busPIRone HCl 10 MG Oral Tablet (Buspar) Take by mouth 2 Tablets in the morning AND 2 Tablets before bedtime. 120 Tablet 1 guaiFENesin ER 600 MG Oral Tablet Extended Release 12 Hour (Humibid LA) Take by mouth 600 mg inthe morning AND 600 mg before bedtime. hydrOXYzine HCl 25 MG Oral Tablet Take by mouth 25 mg as needed in the morning AND 25 mg as needed at noon AND 25 mg as needed in the evening. Omeprazole 20 MG Oral Capsule Delayed Release (PriLOSEC) Take by mouth 1 Capsule in the morningAND 1 Capsule before bedtime. 60 Capsule 0 Disposable Brief X-Large Attends X-Large Super Absorb Underwear 32 Each 2 Fluticasone-Salmeterol 115-21 MCG/ACT Inhalation Aerosol (Advair HFA) Inhale by mouth 2 Puffs in the morning AND 2 Puffs before bedtime. 12 g 12 Nebulizer Device Use with nebulized meds 1 Each 0 Full Kit Nebulizer Set Use with nebulizer 1 Each 0 traMADol HCl 100 MG Oral Tablet take 1 tablet by mouth every 8 hours if needed for moderate pain to severe pain 90 Tablet 0 Baclofen 10 MG Oral Tablet (Lioresal) Take 1 Tablet (10 mg) by mouth 3 times a day as needed for Muscle spasms. 90 Tablet 0 ProAir HFA 108 (90 Base) MCG/ACT Inhalation Aerosol Solution Inhale 2 Puffs by mouth in the morning and 2 Puffs at noon and 2 Puffs in the evening and 2 Puffs before bedtime. 18 g 1 Ipratropium-Albuterol 0.5-2.5 (3) MG/3ML Inhalation Solution (Duoneb) Inhale 3 mL by mouth every 6 hours as needed for Wheezing. 90 mL 3 Current Facility-Administered Medications Medication Dose Route Frequency Provider Last Rate Last Admin Albuterol Sulfate (Proventil) (2.5 MG/3ML) 0.083% inhalation solution 2.5 mg 2.5 mg Nebulizer PRN Jesus Bonilla MD Albuterol Sulfate (Proventil) (5 MG/ML) 0.5% *conc* inhalation solution 2.5 mg 2.5 mg NebulizerPRN Jesus Bonilla MD 2.5 mg at 05/07/22 5257 Allergy: Review of patient's allergies indicates: Allergen Reactions Aspirin Unknown von Willebrand's disease Salicylates von Willebrand's disease OBJECTIVE: BP 108/68 | Pulse 105 | Temp 36.7 C (98 F) (Tympanic) | Ht 1.588 m (5' 2.5") | Wt 133.4 kg (294lb) | SpO2 95% | BMI 52.92 kg/m | BSA 2.43 m Gen: morbidly obese female sitting in a wheelchair wearing O2 via nasal canula Lungs: ctab Heart: rrr, no mrg Ext: 1+ pitting edema Skin: no rashes or stasis dermatitis ASSESSMENT AND PLAN: (J96.11) Chronic hypoxemic respiratory failure (HCC) (primary encounter diagnosis) Plan: continue O2 and recs per pulm Patient has upper respiratory condition, COPD that requires her to be elevated 30 degrees most of the time (E03.9) Acquired hypothyroidism Plan: euthyroid (J44.9) COPD, group D, by GOLD 2017 classification ([facility]) Plan: continue O2 and recs per pulm (G47.33) Obstructive sleep apnea Plan: use cpap (I42.9) Idiopathic cardiomyopathy ([facility]) Plan: ECHO, COMPLETE (2D), TRANS-THORACIC -last echo 2 years ago --- normal EF (I48.0) Paroxysmal atrial fibrillation ([facility]) Plan: continue rx (I50.32) Chronic diastolic CHF (congestive heart failure) ([facility]) Plan: ECHO, COMPLETE (2D), TRANS-THORACIC -will transition to bumex to see if this gets more fluid off her legs for her comfort (K58.0) Irritable bowel syndrome with diarrhea Plan: stable (E66.9) Super obese Plan: inactive; continues to gain (F41.8) Depression with anxiety Plan: stable (Z86.73) History of multiple strokes Plan: noted/stable (F43.10) PTSD (post-traumatic stress disorder) Plan: stable (R26.89) Decreased functional mobility Plan: stable -- sits most of the day Follow up in 6 month(s). No other complaints were offered at this time. Roger Alexandra MD documented in this encounter Nursing Notes * Myesha Dhillon CMA - 09/30/2022 8:53 AM EST The patient has been properly identified by confirmation of name and date of . Chief Complaint Patient presents with Routine Exam Follow up difficulty breathing, worse when showering and walking. Left leg pain with swollen ankle. Left hip pain. documented in this encounter Plan of Treatment Upcoming Encounters Date Type Specialty Care Team Description 10/19/2022 Laboratory [place] [facility] [place] [facility] Draw [address] [place] [address] 10/20/2022 [facility] [address] [place] [address] 11/18/2022 Therapy Psychiatry Roger Drake, PhD [address] [place] [address] 11/26/2022 Cardiac Studies Cardiac Studies 12/02/2022 Office Visit Pulmonary Jesus Bonilla MD [address] [place] [address] 12/16/2022 Telemedicine Psychiatry Hugo Alcantara MD [address] [place] [address] 01/13/2023 Procedure Only Endoscopy Shaneka Santiago MD [address] [facility] [address] [address] 03/17/2023 PulmDiagnostic Pulmonary Function [facility] [address] [facility] [address] [address] Scheduled Orders Name Type Priority Associated Diagnoses Orde r Schedule ECHO, COMPLETE (2D), TRANS-THORACIC Echocardiology Routine Idiopathic cardiomyopathy (HCC) Chronic diastolic CHF (congestive heart failure) (HCC) Expected: 09/30/2022, Expires: 10/30/2024 Health Maintenance Due Date Last Done Comments [...] exists LUNG CANCER SCREENING - USE SMARTSET 56725 Completed 03/16/2022 Influenza Vaccine (FLU shot) Completed [...] Chronic respiratory failure Acquired hypothyroidism Unspecified hypothyroidism COPD, group D, by GOLD 2017 classification (HCC) Obstructive sleep apnea Obstructive sleep apnea (adult) (pediatric) Idiopathic cardiomyopathy (HCC) Other primary cardiomyopathies Paroxysmal atrial fibrillation (HCC) Atrial fibrillation Chronic diastolic CHF (congestive heart failure) (HCC) Chronic diastolic heart failure Irritable bowel syndrome with diarrhea Irritable bowel syndrome Super obese Morbid obesity Depression with anxiety Dysthymic disorder History of multiple strokes PTSD (post-traumatic stress disorder) Posttraumatic stress disorder Decreased functional mobility Other symptoms involving nervous and musculoskeletal systems documented in this encounter Care Teams Equity Structurer Relationship Specialty Start Date End Date Roger Alexandra MD [address] [address] PCP - General Family Medicine 12/29/19 documented as of this encounter
--- OUTSIDE RECORDS SUMMARY | 2023-07-25 04:27 | External Medical Summary | Summary of Care ---
Author Name Unknown Organization [place] [address] Care Team Providers Care Manager Grocery Name Role Phone Roger Alexandra MD Primary Care Provider [phone] Reason for Visit * Reason Onset Date Comments FYI 10/06/2022 Advice 10/06/2022 Encounter Details Date Type Department Care Team Description 10/06/2022 Telephone Family Practice [facility] [address] [address] Roger Alexandra MD [address] [id number] FYI; Advice Allergies Active Allergy Reactions Severity Noted [...] clinic. 90 Tablet 3 02/16/2022 Active Nystatin 957991 UNIT/GM External Powder (Neamyc) apply to affected area twice a day 15 g 1 05/19/2022 Active oxygen IN GASIndications:Computer Scientist 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 respiratory failure (HCC),COPD, group D, [...] ([facility]),Chronic hypoxemic respiratory failure (HCC) Use with nebulized meds 1 Each 0 09/16/2022 Active Full Kit Nebulizer SetIndications:COPD , group D, by GOLD 2017 classification ([facility]),Chronic hypoxemic respiratory failure (HCC) Use with nebulizer 1 Each 0 09/16/2022 Active traMADol HCl 100 MG Oral TabletIndications:C hronic bilateral low back pain without sciatica take 1 tablet by mouth every 8 hours if needed for moderate pain to severe pain 90 Tablet 0 09/23/2022 Active Baclofen 10 MG Oral Tablet (Lioresal)Indicatio [...] BEFORE BEDTIME 60 Capsule 5 10/05/2022 Active LORazepam 0.5 MG Oral Tablet (Ativan) Take by mouth 1 Tablet as needed in the morning AND 1 Tablet as needed at noon AND 1 Tablet as needed in the evening for Anxiety. Do not start before August 13, 2022. 90 Tablet 1 08/13/2022 10/12/20 22 Discontinued Gabapentin 300 MG Oral Capsule (Neurontin) Take 1 Capsule (300 mg) by mouth at bedtime. 30 Capsule 1 10/05/2022 10/12/20 22 Discontinued hydrOXYzine HCl 25 MG Oral Tablet Take 1 tablet by mouth twice daily 60 Tablet 5 10/05/2022 10/12/20 22 Discontinued Hospital, Clinic, or Other Facility Administered Medication Ordered Dose Route Frequency Start Date End Date Status Albuterol Sulfate (Proventil) (2.5 MG/3ML) 0.083% inhalation solution 2.5 mgIndications:Chronic hypoxemic respiratory failure (HCC),COPD, group D, by GOLD 2017 classification ([facility]) 2.5 mg NEBULIZER PRN 03/10/2022 03/10/2023 Acti ve Albuterol Sulfate (Proventil) (5 MG/ML) 0.5% *conc* inhalation solution 2.5 mgIndications:Chronic hypoxemic respiratory failure (HCC),COPD, group D, by GOLD 2017 classification ([facility]) 2.5 mg NEBULIZER PRN 03/10/2022 03/10/2023 [...] septal aneurysm 02/04/2006 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 Transferred to the nurse line. * Telephone Encounter - Yara Morris RN - 10/12/2022 10:59 AM EST Faxed addended office notes to [facility] * Telephone Encounter - Roger Alexandra MD - 10/09/2022 8:43 PM EST 09/30 office note addended. * Telephone Encounter - Yara Morris RN - 10/09/2022 3:46 PM EST Patient left a on case management line asking for me to check on status of electric bed at [facility]. I called [facility] and spoke with Kathy, in order for medicare to pay for this we need office notes to state specifically: (they will accept an addended note) "Patient has upper respiratory condition, COPD that requires her to be elevated 30 degrees most of the time". Or other reasoning that is covered is: "patient has a condition that requires frequent repositioning of body in ways not feasible with ordinary bed in order to alleviate pain". Dr. Alexandra, are you able to addend last OV note to state one of the above, to get this covered? Thank you! documented in this encounter Plan of Treatment Upcoming Encounters Date Type Specialty Care Team Description 10/19/2022 Laboratory Laboratory Processing [facility] [place] [address] [facility] [address] 10/20/2022 [facility] [address] [place] [address] 11/18/2022 Therapy Psychiatry Roger Drake, PhD [address] [place] [address] 11/26/2022 Cardiac Studies Cardiac Studies 12/02/2022 Office Visit Pulmonary Jesus Bonilla MD [address] [place] [facility] [place] [address] 12/16/2022 Telemedicine Psychiatry Hugo Alcantara MD [address] [place] [facility] [place] [address] 01/13/2023 Procedure Only Endoscopy Shaneka Santiago MD [address] [place] [address] 03/17/2023 PulmDiagnostic Pulmonary Function [place], Pft [address] [place] [address] Health Maintenance Due Date Last Done Comments [...] exists LUNG CANCER SCREENING - USE SMARTSET 67246 Completed 03/16/2022 Influenza Vaccine (FLU shot) Completed , 11/11/2021, 11/11/2021, Additional history exists GARDASIL-HPV IMMUNIZATION SERIES Aged Out No longer eligible based on patient's age to complete this topic MENINGOCOCCAL (MENACTRA/MENVEO) Aged Out No longer eligible based on patient's age to complete this topic documented as of this encounter Medical Devices Not on filedocumented as of this encounter Care Teams Manager Grocery Relationship Specialty Start Date End Date Roger Alexandra MD [address] [address] PCP - General Family Medicine 12/29/19 documented as of this encounter
--- OUTSIDE RECORDS SUMMARY | 2023-07-25 04:27 | External Medical Summary | Summary of Care ---
Author Name Unknown Organization [place] [address] Care Team Providers Care Concrete Analyst Name Role Phone Roger Alexandra MD Primary Care Provider [phone] Reason for Visit * Reason Onset Date Comments FYI 10/06/2022 Advice 10/06/2022 Encounter Details Date Type Department Care Team Description 10/06/[address] [facility] [address] [address] Roger Alexandra MD [address] [id number] FYI; Advice Allergies Active Allergy Reactions Severity [...] clinic. 90 Tablet 3 02/16/2022 Active Nystatin 433631 UNIT/GM External Powder ([facility]) apply to affected area twice a day 15 g 1 05/19/2022 Active oxygen IN GASIndications:Carbonation Tester 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 respiratory failure (HCC),COPD, group D, [...] [facility] [place]Chronic hypoxemic respiratory failure (HCC) Use with nebulized meds 1 Each 0 09/16/2022 Active Full Kit Nebulizer SetIndications:COPD , group D, by GOLD 2017 classification ([facility]),Chronic hypoxemic respiratory failure (HCC) Use with [...] (HCC),COPD, group D, by GOLD 2017 classification ([facility]) 2.5 mg NEBULIZER PRN 03/10/2022 03/10/2023 Acti ve Albuterol Sulfate (Proventil) (5 MG/ML) 0.5% *conc* inhalation solution 2.5 mgIndications:Chronic hypoxemic respiratory failure (HCC),COPD, group D, by GOLD 2017 classification ([facility]) 2.5 mg NEBULIZER PRN 03/10/2022 03/10/2023 Acti [...] 12/21/2008 Atrial septal aneurysm 02/04/2006 9 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 Still need specific wording on OV note, that is still not correct. They are faxing us a cheat sheet for correct wording. Faxing to [phone] * Telephone Encounter - RUFINA Sheppard - 10/15/2022 11:26 AM EST [facility] calling back still need the edited ov to be faxed over soon as possible to Mirtha . Transferred to the nurse line. * Telephone Encounter - Yara Morris RN - 10/12/2022 10:59 AM EST Faxed addended office notes to [facility] * Telephone Encounter - Roger Alexandra MD - 10/09/2022 8:43 PM EST 09/30 office note addended. * Telephone Encounter - Yara Morris RN - 10/09/2022 3:46 PM EST Patient left a on case management line asking for me to check on status of electric bed at [facility]. I called [facility] and spoke with Kathy, in order for [...] Care Team Description 10/19/2022 Laboratory Laboratory Processing [facility], [facility] Mobile Home Draw [address] [place] [address] 10/20/2022 [facility] [address] [place] [address] 11/18/2022 Therapy Psychiatry Roger Drake, PhD [address] [place] [address] 11/26/2022 Cardiac Studies Cardiac Studies 12/02/2022 Office Visit Pulmonary Jesus Bonilla MD [address] [place] [address] 12/16/2022 Telemedicine Psychiatry Hugo Alcantara MD [address] [place] [address] 01/13/2023 Procedure Only Endoscopy Shaneka Santiago MD [address] [facility] [address] [address] 03/17/2023 PulmDiagnostic Pulmonary Function [place], Pft [address] [facility] [address] [address] Health Maintenance Due Date Last Done Comments [...] exists LUNG CANCER SCREENING - USE SMARTSET 19388 Completed 03/16/2022 Influenza Vaccine (FLU shot) Completed , 11/11/2021, 11/11/2021, Additional history exists GARDASIL-HPV IMMUNIZATION SERIES Aged Out No longer eligible based on patient's age to complete this topic MENINGOCOCCAL (MENACTRA/MENVEO) Aged Out No longer eligible based on patient's age to complete this topic documented as of this encounter Medical Devices Not on filedocumented as of this encounter Care Teams Concrete Analyst Relationship Specialty Start Date End Date Roger Alexandra MD [address] [address] PCP - General Family Medicine 12/29/19 documented as of this encounter
--- OUTSIDE RECORDS SUMMARY | 2023-07-25 04:27 | External Medical Summary | Summary of Care ---
Author Name Unknown Organization [place] [address] Care Team Providers Care Cue Worker Name Role Phone Roger Alexandra MD Primary Care Provider [phone] [phone] Reason for Referral * Precert (Within 10 days (routine)) - Authorized Specialty Diagnoses / Procedures Referred By Contac t Referred To Contact Cardiac Studies Diagnoses Idiopathic cardiomyopathy (HCC) Chronic diastolic CHF (congestive heart failure) (HCC) Procedures ECHO, COMPLETE (2D), TRANS-THORACIC Roger Alexandra MD [address] [address] Referral ID Status Reason Start Date Expiration Date V isits Requested Visits Authorized [id number] Authorized Precert 09/30/2022 999 999 Reason for Visit * Reason Comments Routine Exam Follow up Encounter Details Date Type Department Care Team Description 09/30/2022 Office Visit Family Practice [facility] [address] [address] Roger Alexandra MD [address] [address] Chronic hypoxemic respiratory failure (HCC)*; Acquired hypothyroidism; [...] as of this encounter (statuses as of 10/09/2022) Medications Medication Sig Dispensed Refills Start Date End Date Status Warfarin Sodium 5 MG Oral Tablet (Coumadin)Indicati ons:Paroxysmal atrial fibrillation (HCC) Take by mouth 1 Tablet in the evening. OR As directed by coumadin clinic. 90 Tablet 3 2 Active Nystatin 371520 UNIT/GM External Powder (Nyamyc) apply to affected [...] COPD, group D, by GOLD 2017 classification ([facility]),Chronic hypoxemic respiratory failure ([facility]) Use with nebulized meds 1 Each 0 2 Active Full Kit Nebulizer SetIndications:RESTROOMS OR LOUNGES MAID D, group D, by GOLD 2017 classification [...] Capsule 1 2 10/05/20 22 Discontinued(Ref ill) hydrOXYzine HCl 25 MG Oral Tablet Take [...] as of this encounter (statuses as of 10/09/2022) Active Problems Problem Noted Date Decreased functional [...] as of this encounter (statuses as of 10/09/2022) Resolved Problems Problem Noted Date Resolved Date [...] 02/04/2006 12/21/2008 Atrial septal aneurysm 02/04/2006 9 saw edge fuser circular current use 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 0 06/01/2005 [...] as of this encounter (statuses as of 10/09/2022) Immunizations Name Administration Dates Next Due H1N1 [...] Progress Notes * Roger Alexandra MD - 09/30/2022 10:34 [...] G47.33 Von Willebrand disease D68.00 Idiopathic cardiomyopathy ([facility]) I42.9 Acquired hypothyroidism E03.9 Super obese E66.9 Chronic bilateral low back pain without sciatica M54.50, G89.29 Paroxysmal atrial fibrillation ([facility]) I48.0 Drug-seeking behavior Z76.5 History of multiple strokes Z86.73 Chronic diastolic CHF (congestive heart failure) ([facility]) I50.32 PTSD (post-traumatic stress disorder) F43.10 COPD, group D, by GOLD 2017 classification ([facility]) J44.9 Chronic hypoxemic respiratory failure ([facility]) J96.11 History of narcotic addiction ([facility]) F11.21 Decreased functional mobility R26.89 Current [...] by coumadin clinic. 90 Tablet 3 Nystatin 551616 UNIT/GM External Powder ([facility]) apply to affected area twice [...] Jesus Bonilla MD 2.5 mg at 05/07/22 0627 Allergy: Review of patient's allergies indicates: Allergen [...] COPD, group D, by GOLD 2017 classification ([facility]) Plan: continue O2 and recs per pulm (G47.33) Obstructive sleep apnea Plan: use cpap (I42.9) Idiopathic cardiomyopathy ([facility]) Plan: ECHO, COMPLETE (2D), TRANS-THORACIC -last echo 2 years ago --- normal EF (I48.0) Paroxysmal atrial fibrillation ([facility]) Plan: continue rx (I50.32) Chronic diastolic CHF (congestive heart failure) ([facility]) Plan: ECHO, COMPLETE (2D), TRANS-THORACIC -will [...] in this encounter Nursing Notes * Myesha Dhillon, [facility] - 09/30/2022 8:53 AM EST The patient has been properly identified by confirmation of name and date of . Chief Complaint Patient presents with Routine Exam Follow up difficulty breathing, worse when showering and walking. Left leg pain with swollen ankle. Left hip pain. documented in this encounter Plan of Treatment Upcoming Encounters Date Type Specialty Care Team Description 10/12/2022 Laboratory Laboratory Processing [facility], [facility] Mobile Home Draw [address] [place] [address] 10/12/2022 Telemedicine Psychiatry Hugo Alcantara MD [address] [place] [address] 10/13/2022 [facility] [address] [place] [address] 11/18/2022 Therapy Psychiatry Roger Drake, PhD [address] [place] [address] 11/26/2022 Cardiac Studies Cardiac Studies 12/02/2022 Office Visit Pulmonary Jesus Bonilla MD [address] [place] [address] 01/13/2023 Procedure Only Endoscopy Shaneka Santiago MD [address] [place] [address] 03/17/2023 PulmDiagnostic Pulmonary Function [facility] Pft [address] [facility] [place] [address] Scheduled Orders Name Type Priority Associated Diagnoses [...] 03/20/2009 LUNG CANCER SCREENING - USE SMARTSET 86932 Completed 03/16/2022 Influenza Vaccine (FLU shot) Completed [...] systems documented in this encounter Care Teams Cue Worker Relationship Specialty Start Date End Date Roger Alexandra MD [address] [address] PCP - General Family Medicine 12/29/19 documented as of this encounter
--- OUTSIDE RECORDS SUMMARY | 2023-07-25 04:27 | External Medical Summary ---
Author Name Unknown Address Unknown Organization K01:[facility] - [address] [place] [address] Laboratory Report Ordering Provider Test Date Status SUMAN STANFORD 10/12/2022 09:55:00 Final Observation Date Value Abnormality Reference (Units ) Status PT 10/12/2022 09:55:00 19.7 Above high normal 11 .6-15.2 (seconds) Final INR 10/12/2022 09:55:00 1.7 Above high normal 0. 8-1.2 Final Performing Location [facility] - [address] [place] [address]
--- OUTSIDE RECORDS SUMMARY | 2023-07-25 04:27 | External Medical Summary | Summary of Care ---
Author Name Unknown Organization [place] [address] Care Team Providers Care Office Asst Name Role Phone Roger Alexandra MD Primary Care Provider [phone] [phone] Reason for Visit * Reason Onset Date Comments FYI 10/06/2022 Advice 10/06/2022 Encounter Details Date Type Department Care Team Description 10/06/2022 Telephone Family Practice [facility] [address] [address] Roger Alexandra MD [address] [id number] FYI; Advice Allergies Active Allergy Reactions Severity [...] clinic. 90 Tablet 3 02/16/2022 Active Nystatin 307229 UNIT/GM External Powder (Nmamy[facility]) apply to affected area twice a day 15 g 1 05/19/2022 Active oxygen IN GASIndications:Correctional Supervising Cook 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 respiratory failure (HCC),COPD, group D, [...] [facility]) 2.5 mg NEBULIZER PRN 03/10/2022 03/10/2023 Acti ve Albuterol Sulfate (Proventil) (5 MG/ML) 0.5% *conc* inhalation solution 2.5 mgIndications:Chronic hypoxemic respiratory failure (HCC),COPD, group D, by GOLD 2017 classification ([facility]) 2.5 mg NEBULIZER PRN 03/10/2022 03/10/2023 [...] 02/04/2006 12/21/2008 Atrial septal aneurysm 02/04/2006 9 jaw skinner current use 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 0 06/01/2005 [...] - Kim De Guzman LPN - 10/15/2022 11:47 AM EST Addendum corrected, signed, dated and stamped by Dr. Alexandra and faxed to attn: Mirtha at [facility]. [phone] * Telephone Encounter - Kim De Guzman LPN - 10/15/2022 11:37 AM EST Call from Mirtha from [facility] home care. Still need specific wording on OV note, that is still not correct. They are faxing us a cheat sheet for correct wording. Faxing to [phone] * Telephone Encounter - RUFINA Sheppard - 10/15/2022 11:26 AM EST [facility] calling back still need the edited ov to be faxed over soon as possible to Mirtha . Transferred to the nurse line. * Telephone Encounter - Yara Morris RN - 10/12/2022 10:59 AM EST Faxed addended office notes to [facility] * Telephone Encounter - Roger Alexandra MD - 10/09/2022 8:43 PM EST 09/30 office note addended. * Telephone Encounter - Yara Morris RN - 10/09/2022 3:46 PM EST Patient left a Vm on case management line asking for me to check on status of electric bed at [facility]. I called [facility] and spoke with Kathy, [...] Care Team Description 10/19/2022 Laboratory Laboratory Processing [facility] Mobile Home Draw [address] [place] [address] 10/20/2022 [facility] [address] [place] [address] 11/18/2022 Therapy Psychiatry Roger Drake, PhD [address] [place] [address] 11/26/2022 Cardiac Studies Cardiac Studies 12/02/2022 Office Visit Pulmonary Jesus Bonilla MD [address] [place] [address] 12/16/2022 Telemedicine Psychiatry Hugo Alcantara MD [address] [place], [place] [address] 01/13/2023 Procedure Only Endoscopy Shaneka Santiago MD [address] [facility] [address] [address] 03/17/2023 PulmDiagnostic Pulmonary Function [facility] Pft [address] [facility] [address] [place] [address] Health Maintenance Due Date Last Done Comments [...] exists LUNG CANCER SCREENING - USE SMARTSET 77724 Completed 03/16/2022 Influenza Vaccine (FLU shot) Completed , 11/11/2021, 11/11/2021, Additional history exists GARDASIL-HPV IMMUNIZATION SERIES Aged Out No longer eligible based on patient's age to complete this topic MENINGOCOCCAL (MENACTRA/MENVEO) Aged Out No longer eligible based on patient's age to complete this topic documented as of this encounter Medical Devices Not on filedocumented as of this encounter Care Teams Office Asst Relationship Specialty Start Date End Date Roger Alexandra MD [address] [address] PCP - General Family Medicine 12/29/19 documented as of this encounter
--- OUTSIDE RECORDS SUMMARY | 2023-07-25 04:27 | External Medical Summary | Summary of Care ---
Author Name Unknown Organization [facility] [place] [address] Care Team Providers Care Supervisor Rod Placing Name Role Phone Roger Alexandra MD Primary Care Provider [phone] [phone] Reason for Visit * Reason Comments Dosage Adjustment Via Phone (anticoag Cl inic) Encounter Details Date Type Department Care Team Description 10/06/2022 Anticoagulation Pharmacy Call Center [address] [facility] [place] [address] [facility] [address] [place] [address] 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 current use 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* Allergies Active Allergy Reactions Severity Noted Date Comments Aspirin Unknown 12/12/2007 von Willebrand's disease Salicylates 03/01/2000 von Willebrand's disease documented as of this encounter (statuses as of 10/06/2022) Medications Medication Sig Dispensed Refills Start Date End Date Status Warfarin Sodium 5 MG Oral Tablet (Coumadin)Indications :Paroxysmal atrial fibrillation (HCC) Take by mouth 1 Tablet in the evening. OR As directed by coumadin clinic. 90 Tablet 3 02/16/2022 Active Nystatin 922226 UNIT/GM External Powder (Nyamyc) apply to affected [...] bedtime. 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:PRE K TEACHER D, group D, by GOLD 2017 [...] BEFORE BEDTIME 60 Capsule 5 10/05/2022 Active Gabapentin 300 MG Oral Capsule (Neurontin) Take 1 Capsule (300 mg) by mouth at bedtime. 30 Capsule 1 10/05/2022 Active hydrOXYzine HCl 25 MG Oral Tablet Take 1 tablet by mouth twice daily 60 Tablet 5 10/05/2022 Active Hospital, Clinic, or Other Facility Administered Medication Ordered Dose Route Frequency Start Date End Date Status Albuterol Sulfate (Proventil) (2.5 MG/3ML) 0.083% inhalation solution 2.5 mgIndications:Chronic hypoxemic respiratory failure (HCC),COPD, group D, by GOLD 2017 classification ([facility]) 2.5 mg NEBULIZER PRN 03/10/2022 03/10/2023 Acti ve Albuterol Sulfate (Proventil) (5 MG/ML) 0.5% *conc* inhalation solution 2.5 mgIndications:Chronic hypoxemic respiratory failure (HCC),COPD, group D, by GOLD 2017 classification ([facility]) 2.5 mg NEBULIZER PRN 03/10/2022 03/10/2023 Acti ve documented as of this encounter (statuses as of 10/06/2022) Active Problems Problem Noted Date Decreased functional [...] as of this encounter (statuses as of 10/06/2022) Resolved Problems Problem Noted Date Resolved Date [...] Obesity Taxonomy EXT ASTHMA W-O STAT ASTH 10/21/2 010 Tobacco use disorder 04/23/2021 documented as of this encounter (statuses as of 10/06/2022) Immunizations Name Administration Dates Next Due H1N1 [...] this encounter Progress Notes * Kim Mercado, [facility] - 10/06/2022 11:39 AM EST Images from the original note were not included. Medication Therapy Disease Management - Anticoagulation Patient: Kimberly Hung Enoch : 1960 Contacts Type Contact Phone/Fax 10/06/2022 12:09 PM EST Phone (Outgoing) Kimberly Kendall (Self) [phone] (M) Current Warfarin Dose As of 10/06/2022 Warfarin maintenance plan: 5 mg (5 mg x 1) every day; Starting 10/06/2022 Patient-Reported Symptoms: Patient Findings Positives: Signs/symptoms of bleeding (A little nose bleed but it stopped.), Change in health (Pt reports her oxygen level has been down to 87-88. 90 today. Not breathing very well. Pt reports her doctor is aware.), Change in activity (Weak and walking around less.) Negatives: Signs/symptoms of thrombosis, Change in alcohol use, Upcoming invasive procedure, Misseddoses, Extra doses, Change in medications, Change in diet/appetite, Bruising Comments: Counseled pt to contact the doctor if she is experiencing any unusual bruising or bleeding. Counseled that the increased INR puts her at higher risk of bleeding and to be careful not to fall and use caution with sharp objects. Told patient to monitor for bleeding symptoms like black, tarry stools or nose bleeds that are gushing blood. INR Result As of 10/06/2022 INR goal: 2.0-3.0 INR used for dosin.9 (10/06/2022) Warfarin Plan As of 10/06/2022 Full warfarin instructions: 10/06: Hold; 10/07: Hold; 10/08: Hold; 10/09: Hold; 10/10: 2.5 mg; Otherwise 5 mg every day; Starting 10/06/2022 Next INR check: 10/12/2022 Additional Dosing Information: Description [facility] Also sent MyG after trying to call 01/13/23 - colonoscopy Repeat PT/INR in 6 day(s) Weekly dose: not changed Amber Dexter, FabeinneD Candidate 2022 [facility] Agree with plan as documented. Kim Mercado RPh Clinical Pharmacist 10/06/2022, 12:05 PM documented in this encounter Plan of Treatment Upcoming Encounters Date Type Specialty Care Team Description 10/12/2022 Telemedicine Psychiatry Hugo Alcantara MD [address] [place] [address] 11/18/2022 Therapy Psychiatry Roger Drake, PhD [address] [place] [address] 11/26/2022 Cardiac Studies Cardiac Studies 12/02/2022 Office Visit Pul[facility] [address] [facility] [address] 01/13/2023 Procedure Only Endoscopy Shaneka Santiago MD [address] [facility] [place] [address] 03/17/2023 PulmDiagnostic Pulmonary Function [place] [address] [address] Health Maintenance Due Date Last Done Comments [...] 03/20/2009 LUNG CANCER SCREENING - USE SMARTSET 50[address] Completed 03/16/2022 Influenza Vaccine (FLU shot) Completed , 11/11/2021, 11/11/2021, Additional history exists GARDASIL-HPV IMMUNIZATION SERIES Aged Out No longer eligible based on patient's age to complete this topic MENINGOCOCCAL (MENACTRA/MENVEO) Aged Out No longer eligible based on patient's age to complete this topic documented as of this encounter Medical Devices Not on filedocumented as of this encounter Visit Diagnoses Diagnosis USP current use 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- Primary documented in this encounter Care Teams Supervisor Rod Placing Relationship Specialty Start Date End Date Roger Alexandra MD [address] [address] PCP - General Family Medicine 12/29/19 documented as of this encounter
--- OUTSIDE RECORDS SUMMARY | 2023-07-25 04:27 | External Medical Summary | Summary of Care ---
Author Name Unknown Organization [place] [address] Care Team Providers Care Mail List Librarian Name Role Phone Roger Alexandra MD Primary Care Provider [phone] [phone] Reason for Visit * Reason Onset Date Comments Fax 08/31/2022 notes for DME be d Encounter Details Date Type Department Care Team Description 08/31/2022 Telephone Family Practice [facility] [address] [id number] Roger Alexandra MD [address] [facility] [address] [place] [id number] Fax (notes for DME bed ) Allergies Active Allergy Reactions Severity Noted [...] clinic. 90 Tablet 3 02/16/2022 Active Nystatin 589221 UNIT/GM External Powder (Nyamyc) apply to affected [...] AND 600 mg before bedtime. 0 Active Hospital, Clinic, or Other Facility Administered [...] Encounter - Kim De Guzman LPN - 10/09/2022 10:47 AM EST Faxed over last OV note to [facility]. * Telephone Encounter - RUFINA Luu - 10/09/2022 10:42 AM EST [facility] calling for Chart Notes for a Hospital Bed Mirtha has been waiting for 08/31/22 Please fax to [phone] * Telephone Encounter - Myesha Dhillon CMA - 09/08/2022 12:59 PM EDT Fwd to Dr Alexandra Fax with insurance requirements is in your blue bin. See note below from [facility]. TY * Telephone Encounter - RUFINA Lam - 09/07/2022 4:23 PM EDT Mirtha with [facility] still needs chart notes faxed over. The addendum needs to state as follow, "The patient has a medical condition that requires frequent positioning of the body in ways not feasible with an ordinary bed in order to alleviate pain or the head of the bed must be elevated morethan 30 degrees most of the time due to COPD or other respiratory issues." Mirtha faxed over a form on 08/31 as well with what is needed. * Telephone Encounter - RUFINA Bass - 08/31/2022 12:39 PM EDT Caller requesting the following information to be faxed: Name/Company of caller: [facility] Information requested to be faxed: Supporting OV notes for Hospital Bed - Medical Necessity requires frequent reposition in ways not feasible with ordinary bed. Can order to alleviate pain or HOB elevated 30 degrees, most of the time d/t CHF or upper respiratory issues . Fax number: [phone] Attention to Name/Company: Any additional information?: documented in this encounter Plan of Treatment Upcoming Encounters Date Type Specialty Care Team Description 10/12/2022 Laboratory Laboratory Processing [facility] Mobile Home Draw [address] [place] [address] 10/12/2022 Telemedicine Psychiatry Hugo Alcantara MD [address] [place] [address] 10/13/2022 [facility] [address] [place] [address] 11/18/2022 Therapy Psychiatry Roger Drake, PhD [address] [place] [address] 11/26/2022 Cardiac Studies Cardiac Studies 12/02/2022 Office Visit Pulmonary Jesus Bonilla MD [address] [place] [facility] [place] [address] 01/13/2023 Procedure Only Endoscopy Shaneka Santiago MD [address] [facility] [address] [place] [address] 03/17/2023 PulmDiagnostic Pulmonary Function [place], Pft [address] [facility] [address] [place] [address] Health Maintenance Due Date Last Done Comments [...] 03/20/2009 LUNG CANCER SCREENING - USE SMARTSET 265[address] Completed 03/16/2022 Influenza Vaccine (FLU shot) Completed , 11/11/2021, 11/11/2021, Additional history exists GARDASIL-HPV IMMUNIZATION SERIES Aged Out No longer eligible based on patient's age to complete this topic MENINGOCOCCAL (MENACTRA/MENVEO) Aged Out No longer eligible based on patient's age to complete this topic documented as of this encounter Medical Devices Not on filedocumented as of this encounter Care Teams Mail List Librarian Relationship Specialty Start Date End Date Roger Alexandra MD [address] [address] PCP - General Family Medicine 12/29/19 documented as of this encounter
--- OUTSIDE RECORDS SUMMARY | 2023-07-25 04:27 | External Medical Summary | Summary of Care ---
Author Name Unknown Organization [place] [address] Care Team Providers Care Global Safety Officer Name Role Phone Roger Alexandra MD Primary Care Provider [phone] [phone] Encounter Details Date Type Department Care Team Description 10/12/2022 Telemedicine Psychiatry, [facility] [address] [place] [address] Hugo Alcantara MD [address] [place], [place] [id number] SIMA (generalized anxiety disorder)* Allergies Active Allergy Reactions Severity Noted Date Comments Aspirin Unknown 12/12/2007 von Willebrand's disease Salicylates 03/01/2000 von Willebrand's disease documented as of this encounter (statuses as of 10/12/2022) Medications Medication Sig Dispensed Refills Start Date End Date Status Warfarin Sodium 5 MG Oral Tablet (Coumadin)Indicatio ns:Paroxysmal atrial fibrillation (HCC) Take by mouth 1 Tablet in the evening. OR As directed by coumadin clinic. 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 60 Tablet 1 10/12/2022 Active LORazepam 0.5 MG Oral Tablet (Ativan) [...] as of this encounter (statuses as of 10/12/2022) Active Problems Problem Noted Date Decreased functional [...] as of this encounter (statuses as of 10/12/2022) Resolved Problems Problem Noted Date Resolved Date [...] as of this encounter (statuses as of 10/12/2022) Immunizations Name Administration Dates Next Due H1N1 [...] Progress Notes * Hugo Alcantara MD - 10/12/2022 12:01 PM EST After connecting through [employer], patient was verified with two unique identifiers. Patient (or authorized legal customer relations representative) was then informed that this was a Telemedicine visit and being conducted confidentially over secure lines. Methods to assure confidentiality were taken. Patient acknowledged consent and understanding of privacy and security of the Telemedicine visit. The patient agreed to participate. PSYCHOTHERAPY & MEDICATION MANAGEMENT RETURN VISIT NOTE Psychiatry, Zaheer Gordon [address] [facility] [address] 08/18/2021 Kimberly Kendall CHIEF COMPLAINT: medication management INTERVAL HISTORY: she states she is "so so I guess". She states sleepless nights, sleepless morning. She states her nerves are "really shot". She states stressors with her sons as they have not been talking with the family. She states the Vistaril has not been helpful. She states she has not noticed any changes with the addition of gabapentin. She feels that it is "harder to think". She reports day as Wednesday. She reports date as 10/10/22. She is unable to say days of week backwards correctly. She reports minimal appetite. She states when her granddaughter is present, she eats 3 meals but eat less when she is not present. She states she "never thought I'd be this way" explaining she felt she was strong until she lost her daughter and her . She also notes buying things online at times to make herself feel good and now has associated financial stress. OBJECTIVE DATA: COLUMBIA-SUICIDE SEVERITY RATING SCALE Have [...] by coumadin clinic. 90 Tablet 3 Nystatin 595441 UNIT/GM External Powder (Nyamyc) apply to affected area twice a day 15 g 1 oxygen IN GAS Use 2 LPM at rest, 4 LPM with exertion and with sleep. 1 Each 0 Isosorbide Mononitrate ER 30 MG Oral Tablet Extended Release 24 Hour (Imdur) take 1 tablet by mouth daily 30 Tablet 5 Mirtazapine 30 MG Oral Tablet (Remeron) [...] 1 capsule BEFORE BEDTIME 60 Capsule 5 Gabapentin 300 MG Oral Capsule (Neurontin) Take 1 Capsule (300 mg) by mouth at bedtime. 30 Capsule 1 hydrOXYzine HCl 25 MG Oral Tablet Take 1 tablet by mouth twice daily 60 Tablet 5 Current Facility-Administered Medications Medication Dose Route Frequency Provider Last Rate Last Admin Albuterol Sulfate (Proventil) (2.5 MG/3ML) 0.083% inhalation solution 2.5 mg 2.5 mg Nebulizer PRN Jesus Bonilla MD Albuterol Sulfate (Proventil) (5 MG/ML) 0.5% *conc* inhalation solution 2.5 mg 2.5 mg NebulizerPRN Jesus Bonilla MD 2.5 mg at 05/07/22 1507 LABS: reviewed per EMR MENTAL STATUS EVALUATION: Appearance: casually dressed and wearing nasal cannula Muscle strength/tone and motor behavior: nml movements visualized on video Gait and Station: not tested Personal Presentation: candid and cooperative. Behavior: cooperative Speech: normal, rate, tone and volume Mood: "so so" Affect: type - dysphoric; range - full [...] fair Judgment: fair FORMULATION: Kimberly Kendall is [id number] old female with presenting symptoms ofdepression, anxiety, [...] Prozac was not helpful. Cymbalta not helpful. struggling with ongoing anxiety sx, depressive sx, cognitive impairment, demoralization and grief. DIAGNOSIS: Major depressive disorder recurrent episode moderate Generalized Anxiety Disorder PTSD Bereavement R/o major neurocognitive d/o TREATMENT PLAN: -- cont Remeron 30mg nightly for sleep/anxiety/depression -- dc Ativan-- transition to Klonopin 0.5mg BID -- cont Buspar 20mg BID -- dc gabapentin d/t lack of effectiveness -- dc Vistaril d/t concern for anticholinergic burden and lack of effectiveness -- recommend therapy; referral previously placed -- neuropsychology referral for neurocognitive d/o evaluation: scheduled 11/18/22 discussed with her RTC: 2 months - Crisis planning-- Kimberly [...] Encounters Date Type Specialty Care Team Description [facility]/13[facility] [address] [place] [address] 11/18/2022 Therapy Psychiatry Roger Drake, PhD [address] [place] [address] 11/26/2022 Cardiac Studies Cardiac Studies 12/02/2022 Office Visit Pulmonary Jesus Bonilla MD [address] [place] [address] 12/16/2022 Telemedicine Psychiatry Hugo Alcantara MD [address] [place] [address] 01/13/2023 Procedure Only Endoscopy [facility] [address] [facility] [address] 03/17/2023 PulmDiagnostic Pulmonary Function [place], [facility] [address] [place] [address] Health Maintenance Due Date Last Done Comments [...] exists LUNG CANCER SCREENING - USE SMARTSET 93712 Completed 03/16/2022 Influenza Vaccine (FLU shot) Completed [...] disorder documented in this encounter Care Teams Global Safety Officer Relationship Specialty Start Date End Date Roger Alexandra MD [address] [place] [address] PCP - General Family Medicine 12/29/19 documented as of this encounter
--- OUTSIDE RECORDS SUMMARY | 2023-07-25 04:27 | External Medical Summary | Summary of Care ---
Author Name Unknown Organization [place] [address] Care Team Providers Care Director Of Catering Name Role Phone Roger Alexandra MD Primary Care Provider [phone] Reason for Visit * Reason Onset Date Comments FYI 10/06/2022 Encounter Details Date Type Department Care Team Description 10/06/2022 Telephone Family Practice [facility] [address] [place] [address] Roger Alexandra MD 132 [facility] [place] [address] FYI Allergies Active Allergy Reactions Severity Noted [...] clinic. 90 Tablet 3 02/16/2022 Active Nystatin 599170 UNIT/GM External Powder (Nyamyc) apply to affected [...] bedtime. 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:CRACK OFF PERSON D, group D, by GOLD 2017 classification [...] AM EST Faxed addended office notes to [facility] * Telephone Encounter - Roger Alexandra MD - 10/09/2022 8:43 PM EST 09/30 office note addended. * Telephone Encounter - Yara Morris RN - 10/09/2022 3:46 PM EST Patient left a Vm on case management line asking for me to check on status of electric bed at [facility]. [facility] and spoke [facility] Kathy, in order for [...] Care Team Description 10/12/2022 Laboratory Laboratory [place] [facility] Draw [address] [place] [address] penitentiary (current) use of anticoagulants 10/12/2022 Telemedicine Psychiatry Hugo Alcantara MD [address] [place] [address] 10/13/2022 [facility] [address] [place] [address] 11/18/2022 Therapy Psychiatry Roger Drake, PhD [address] [place] [address] 11/26/2022 Cardiac Studies Cardiac Studies 12/02/2022 Office Visit Pulmonary Jesus Bonilla MD [address] [facility] [place] [address] 01/13/2023 Procedure Only Endoscopy Shaneka Santiago MD [address] [place] [address] 03/17/2023 PulmDiagnostic Pulmonary Function [place], [address]ft [address] [place] [address] Health Maintenance Due Date Last Done Comments [...] 03/20/2009 LUNG CANCER SCREENING - USE SMARTSET 97989 Completed 03/16/2022 Influenza Vaccine (FLU shot) Completed , 11/11/2021, 11/11/2021, Additional history exists GARDASIL-HPV IMMUNIZATION SERIES Aged Out No longer eligible based on patient's age to complete this topic MENINGOCOCCAL (MENACTRA/MENVEO) Aged Out No longer eligible based on patient's age to complete this topic documented as of this encounter Medical Devices Not on filedocumented as of this encounter Care Teams Director Of Catering Relationship Specialty Start Date End Date Roger Alexandra MD [address] [place] [address] PCP - General Family Medicine 12/29/19 documented as of this encounter
--- OUTSIDE RECORDS SUMMARY | 2023-07-25 04:27 | External Medical Summary ---
Author Name Unknown Address Unknown Organization K01:[facility] [place] [address] [place] [address] Laboratory Report Ordering Provider Test Date Status SUMAN STANFORD 10/19/2022 09:28:00 Final Observation Date Value Abnormality Reference (Units ) Status PT 10/19/2022 09:28:00 12.6 11.6-15.2 (seconds) Final INR 10/19/2022 09:28:00 0.9 0.8-1.2 Final Performing Location [facility] [place] [address] [place] [address]
--- OUTSIDE RECORDS SUMMARY | 2023-07-25 04:28 | External Medical Summary | Summary of Care ---
Author Name Unknown Organization [place] [address] Care Team Providers Care Engine Repairer Name Role Phone Jeevan Mclean MD Primary Care Provider [phone] [phone] Reason for Visit * Reason Onset Date Comments Medication Refill 09/24/2022 Encounter Details Date Type Department Care Team Description 09/24/2022 Refill Family Practice [facility] [address] [place] [address] Yara Morris, business analyst manager bilateral low back pain without sciatica Allergies Active Allergy Reactions Severity Noted Date Comments Aspirin Unknown 12/12/2007 von Willebrand's disease Salicylates 03/01/2000 von Willebrand's disease documented as of this encounter (statuses as of 09/24/2022) Medications Medication Sig Dispensed Refills Start Date End Date Status Furosemide 20 MG Oral Tablet (Lasix) Take by mouth 1 Tablet daily as needed (lower leg swelling). 30 Tablet 11 01/23/2022 Active Warfarin Sodium 5 MG Oral Tablet (Coumadin)Indication s:Paroxysmal atrial fibrillation (HCC) Take by mouth 1 Tablet in the evening. OR As directed by coumadin clinic. 90 Tablet 3 02/16/2022 Active Nystatin 062306 UNIT/GM External Powder (Nyamyc) apply to affected [...] mouth daily 30 Tablet 5 07/28/2022 Active Gabapentin 300 MG Oral Capsule (Neurontin) Take by mouth 1 Capsule before bedtime. 30 Capsule 1 08/03/2022 Active Mirtazapine 30 MG Oral Tablet (Remeron) [...] AND 600 mg before bedtime. 0 Active hydrOXYzine HCl 25 MG Oral Tablet Take by mouth 25 mg as needed in the morning AND 25 mg as needed at noon AND 25 mg as needed in the evening. 0 Active Omeprazole 20 MG Oral Capsule Delayed Release (PriLOSEC) Take by mouth 1 Capsule in the morning AND 1 Capsule before bedtime. 60 Capsule 0 09/07/2022 Active Disposable Brief X-LargeIndications:O veractive bladder Attends X-Large Super Absorb Underwear 32 Each 2 09/08/2022 Active ProAir HFA 108 (90 Base) MCG/ACT Inhalation Aerosol SolutionIndications: Bronchitis, complicated Inhale by mouth 2 Puffs 4 times a day . 18 g 1 09/15/2022 Active Ipratropium-Albutero l 0.5-2.5 (3) MG/3ML Inhalation Solution (Duoneb) Inhale by mouth 3 mL every 6 hours as needed for Wheezing. 90 mL 3 09/15/2022 Active Fluticasone-Salmeter ol 115-21 MCG/ACT Inhalation Aerosol (Advair HFA) Inhale by mouth 2 Puffs in the morning AND 2 Puffs before bedtime. 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:CO PD, group D, by GOLD 2017 classification ([facility]),Chronic hypoxemic respiratory failure (HCC) Use with nebulized meds 1 Each 0 09/16/2022 Active Full Kit Nebulizer SetIndications:COPD, group D, by GOLD 2017 classification ([facility]),Chronic hypoxemic respiratory failure (HCC) Use [...] Muscle spasms. 90 Tablet 0 09/24/2022 Active Baclofen 10 MG Oral Tablet (Lioresal)Indication s:Chronic bilateral low back pain without sciatica Take by mouth 1 Tablet as needed in the morning AND 1 Tablet as needed at noon AND 1 Tablet as needed in the evening for Muscle spasms. 90 Tablet 0 08/27/2022 2 Discontinue d(Refill) Hospital, Clinic, or Other Facility Administered Medication Ordered Dose Route Frequency Start Date End Date Status Albuterol Sulfate (Proventil) (2.5 MG/3ML) 0.083% inhalation solution 2.5 mgIndications:Chronic hypoxemic respiratory failure (HCC),COPD, group D, by GOLD 2017 classification ([facility]) 2.5 mg NEBULIZER PRN 03/10/2022 03/10/2023 Acti ve Albuterol Sulfate (Proventil) (5 MG/ML) 0.5% *conc* inhalation solution 2.5 mgIndications:Chronic hypoxemic respiratory failure (HCC),COPD, group D, by GOLD 2017 classification ([facility]) 2.5 mg NEBULIZER PRN 03/10/2022 03/10/2023 Acti ve documented as of this encounter (statuses as of 09/24/2022) Active Problems Problem Noted Date Decreased functional [...] as of this encounter (statuses as of 09/24/2022) Resolved Problems Problem Noted Date Resolved Date [...] 02/04/2006 12/21/2008 Atrial septal aneurysm 02/04/2006 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 Authorizing Provider: JEEVAN MCLEAN * Telephone Encounter - Yara Morris RN - 09/24/2022 9:46 AM EST Pt called in asking for a refill of baclofen for muscle spasms. Ok to refill? Thank you Did you pend patient's preferred pharmacy and medication before forwarding?yes Pharmacy: [facility] #[id number] Pending Prescriptions: Disp Refills Baclofen 10 MG Oral Tablet (Lioresal) 90 Tab*0 Sig: Take 1 Tablet (10 mg) by mouth 3 times a day as needed for Muscle spasms. Last Visit: 08/28/2022 (in office), 03/14/2021 (telemedicine) Next Visit: Visit date not found If no future appointments scheduled, and last appointment is greater than a year ago, please schedule patient for a follow-up appointment Last date the medication was ordered: 08/27 Is this request for a controlled substance?No [...] Care Team Description 10/06/2022 Laboratory Laboratory Processing [facility] Home Draw [address] [place], [place] [id number] 10/07/2022 [facility] [address] [place] [address] 10/12/2022 Telemedicine Psychiatry Hugo Alcantara MD [address] [place] [address] 11/18/2022 Therapy Psychiatry Jeevan Drake, PhD [address] [place] [address] 12/02/2022 Office Visit Pulmonary [facility] [address] [facility] [id number] 01/13/2023 Procedure Only Endoscopy Shaneka Santiago MD [address] [place] [address] 03/17/2023 [facility] [address] [place] [address] Health Maintenance Due Date Last Done Comments [...] ASSESSMENT COMPLETED IN PAST YEAR FOR COPD 09/16/2023 09/16/2022 Mammogram 09/04/2024 09/04/2022, 10/15, 04/27/2014, Additional history exists Diabetes Screening 01/15/2025 01/15/2022, 0 01/08/2022, 01/03/2022, Additional history exists COLONOSCOPY-EVERY 5 YRS AGES 18-100 11/12/2025 11/12/2020, 05/22/2013, 08/21/2011, Additional history exists Pneumococcal Vaccine: Pediatrics (0 to 5 Years) and At-Risk Patients (6 to 64 Years) Completed 03/20/2009 LUNG CANCER SCREENING - USE SMARTSET 42993 Completed 03/16/2022 Influenza Vaccine (FLU shot) Completed [...] sciatica documented in this encounter Care Teams Engine Repairer Relationship Specialty Start Date End Date Jeevan Mclean MD [address] [place] [address] PCP - General Family Medicine 12/29/19 documented as of this encounter
--- OUTSIDE RECORDS SUMMARY | 2023-07-25 04:28 | External Medical Summary | Summary of Care ---
Author Name Unknown Organization [place] [address] Care Team Providers Care Optometric Technician Name Role Phone Roger Alexandra MD Primary Care Provider [phone] Reason for Visit * Reason Onset Date Comments Advice 09/17/2022 Encounter Details Date Type Department Care Team Description 09/17/2022 Telephone Family Practice [facility] [address] [place] [address] Roger Alexandra MD [address] [facility] [place] [address] Advice Allergies Active Allergy Reactions Severity Noted Date Comments Aspirin Unknown 12/12/2007 von Willebrand's disease Salicylates 03/01/2000 von Willebrand's disease documented as of this encounter (statuses as of 09/22/2022) Medications Medication Sig Dispensed Refills Start Date End Date Status Furosemide 20 MG Oral Tablet (Lasix) Take by mouth 1 Tablet daily as needed (lower leg swelling). 30 Tablet 11 01/23/2022 Active Warfarin Sodium 5 MG Oral Tablet (Coumadin)Indications :Paroxysmal atrial fibrillation (HCC) Take by mouth 1 Tablet in the evening. OR As directed by coumadin clinic. 90 Tablet 3 02/16/2022 Active Nystatin 501738 UNIT/GM External Powder (Nyamyc) apply to affected [...] as needed in the evening. 0 Active Baclofen 10 MG Oral Tablet (Lioresal)Indications :Chronic bilateral low back pain without sciatica Take by mouth 1 Tablet as needed in the morning AND 1 Tablet as needed at noon AND 1 Tablet as needed in the evening for Muscle spasms. 90 Tablet 0 08/27/2022 Active traMADol HCl 100 MG Oral TabletIndications:Chr onic bilateral low back pain without sciatica take 1 tablet by mouth every 8 hours if needed for moderate pain to severe pain 90 Tablet 0 08/27/2022 Active Omeprazole 20 MG Oral Capsule Delayed Release (PriLOSEC) Take by mouth 1 Capsule in the morning AND 1 Capsule before bedtime. 60 Capsule 0 09/07/2022 Active Disposable Brief X-LargeIndications:Ov eractive bladder Attends X-Large Super Absorb Underwear 32 Each 2 09/08/2022 Active ProAir HFA 108 (90 Base) MCG/ACT Inhalation Aerosol SolutionIndications:B ronchitis, complicated Inhale by mouth 2 Puffs 4 times a day . 18 g 1 09/15/2022 Active Ipratropium-Albuterol 0.5-2.5 (3) MG/3ML Inhalation Solution (Duoneb) Inhale by mouth 3 mL every 6 hours as needed for Wheezing. 90 mL 3 09/15/2022 Active Fluticasone-Salmetero l 115-21 MCG/ACT Inhalation Aerosol (Advair HFA) Inhale by mouth 2 Puffs in the morning AND 2 Puffs before bedtime. 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 ([facility]),Chronic hypoxemic respiratory failure (HCC) Use with nebulized meds 1 Each 0 09/16/2022 Active Full Kit Nebulizer SetIndications:COPD, group D, by GOLD 2017 classification ([facility]),Chronic hypoxemic respiratory failure (HCC) Use with nebulizer 1 Each 0 09/16/2022 Active Hospital, Clinic, or Other Facility Administered Medication Ordered Dose Route Frequency Start Date End Date Status Albuterol Sulfate (Proventil) (2.5 MG/3ML) 0.083% inhalation solution 2.5 mgIndications:Chronic hypoxemic respiratory failure (HCC),COPD, group D, by GOLD 2017 classification ([facility]) 2.5 mg NEBULIZER PRN 03/10/2022 03/10/2023 Acti ve Albuterol Sulfate (Proventil) (5 MG/ML) 0.5% *conc* inhalation solution 2.5 mgIndications:Chronic hypoxemic respiratory failure (HCC),COPD, group D, by GOLD 2017 classification ([facility]) 2.5 mg NEBULIZER PRN 03/10/2022 03/10/2023 Acti ve documented as of this encounter (statuses as of 09/22/2022) Active Problems Problem Noted Date Decreased functional [...] as of this encounter (statuses as of 09/22/2022) Resolved Problems Problem Noted Date Resolved Date [...] as of this encounter (statuses as of 09/22/2022) Immunizations Name Administration Dates Next Due H1N1 [...] encounter Miscellaneous Notes * Telephone Encounter - Myesha Dhillon CMA - 09/22/2022 5:29 PM EST Faxed to jaclyn Courtney at [phone] and received at 6:09pm * Telephone Encounter - Roger Alexandra MD - 09/22/2022 4:01 PM EST 10/24 note addended * Telephone Encounter - RUFINA Amin - 09/22/2022 3:07 PM EST Mirtha from [facility] called and has not received the chart notes for the hospital bed Please advise and fax to [phone] * Telephone Encounter - Yara Morris RN - 09/22/2022 10:00 AM EST Faxed note from Dr. Bonilla to [facility] to support patients need for nebulizer. * Telephone Encounter - Myesha Dhillon CMA - 09/18/2022 10:05 AM EDT Paperwork in your bin. TY * Telephone Encounter - RUFINA Alcantar - 09/17/2022 12:05 PM EDT Mirtha from [facility] called requesting a note from the why she needs hospital bed and chart note to why she needed nebulizer. Good call back for Mirtha is [phone] Fax number [phone] attention Mirtha documented in this encounter Plan of Treatment Upcoming Encounters Date Type Specialty Care Team Description 09/23/2022 [facility], [facility] [address] [facility] [address] 10/12/2022 Telemedicine Psychiatry Hugo [facility]antara MD [address] [facility] [address] 11/18/2022 Therapy Psychiatry Roger Drake, PhD [address] [place] [address] 12/02/2022 Office Visit Pulmonary Jesus Bonilla MD [address] [place] [address] 01/13/2023 Procedure Only Endoscopy Shaneka Santiago MD [address] [facility] [place] [address] 03/17/2023 PulmDiagnostic Pulmonary Function [place], [address] [facility] [place] [address] Health Maintenance Due Date Last Done Comments [...] 03/20/2009 LUNG CANCER SCREENING - USE SMARTSET 92267 Completed 03/16/2022 Influenza Vaccine (FLU shot) Completed , 11/11/2021, 11/11/2021, Additional history exists GARDASIL-HPV IMMUNIZATION SERIES Aged Out No longer eligible based on patient's age to complete this topic MENINGOCOCCAL (MENACTRA/MENVEO) Aged Out No longer eligible based on patient's age to complete this topic documented as of this encounter Medical Devices Not on filedocumented as of this encounter Care Teams Optometric Technician Relationship Specialty Start Date End Date Roger Alexandra MD [address] [place] [address] PCP - General Family Medicine 12/29/19 documented as of this encounter
--- OUTSIDE RECORDS SUMMARY | 2023-07-25 04:28 | External Medical Summary | Summary of Care ---
Author Name Unknown Organization [facility] Address [facility] [place] [address] Care Team Providers Care Vertical Lathe Operator Name Role Phone Roger Alexandra MD Primary Care Provider [phone] [phone] Reason for Visit * Reason Comments Dosage Adjustment Via Phone (anticoag Cl inic) Encounter Details Date Type Department Care Team Description 09/23/2022 Anticoagulation Pharmacy Call Center [address] [facility] [place] [address] [facility] [address] [facility] [place] [address] Anticoagulation management encounter* Allergies Active Allergy Reactions Severity Noted Date Comments Aspirin Unknown 12/12/2007 von Willebrand's disease Salicylates 03/01/2000 von Willebrand's disease documented as of this encounter (statuses as of 09/23/2022) Medications Medication Sig Dispensed Refills Start Date End Date Status Furosemide 20 MG Oral Tablet (Lasix) Take by mouth 1 Tablet daily as needed (lower leg swelling). 30 Tablet 11 01/23/2022 Active Warfarin Sodium 5 MG Oral Tablet (Coumadin)Indications :Paroxysmal atrial fibrillation (HCC) Take by mouth 1 Tablet in the evening. OR As directed by coumadin clinic. 90 Tablet 3 02/16/2022 Active Nystatin 198294 UNIT/GM External Powder (Nyamyc) apply to affected area twice a day 15 g 1 05/19/2022 Active oxygen IN GASIndications:Chroni c hypoxemic respiratory failure (HCC),COPD, group D, by GOLD 2017 classification ([facility]) Use 2 LPM at rest, 4 LPM [...] Muscle spasms. 90 Tablet 0 08/27/2022 Active Omeprazole 20 [...] bedtime. 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 ([facility]),Chronic hypoxemic respiratory failure (HCC) Use with nebulized meds 1 Each 0 09/16/2022 Active Full Kit Nebulizer SetIndications:COPD, group D, by GOLD 2017 classification ([facility]),Chronic hypoxemic respiratory failure (HCC) Use with nebulizer 1 Each 0 09/16/2022 Active traMADol HCl 100 MG Oral TabletIndications:Chr onic bilateral low back pain without sciatica take 1 tablet by mouth every 8 hours if needed for moderate pain to severe pain 90 Tablet 0 09/23/2022 Active Hospital, Clinic, or Other Facility Administered Medication Ordered Dose Route Frequency Start Date End Date Status Albuterol Sulfate (Proventil) (2.5 MG/3ML) 0.083% inhalation solution 2.5 mgIndications:Chronic hypoxemic respiratory failure (HCC),COPD, group D, by GOLD 2017 classification ([facility]) 2.5 mg NEBULIZER PRN 03/10/2022 03/10/2023 Acti ve Albuterol Sulfate (Proventil) (5 MG/ML) 0.5% *conc* inhalation solution 2.5 mgIndications:Chronic hypoxemic respiratory failure (HCC),COPD, group D, by GOLD 2017 classification ([facility]) 2.5 mg NEBULIZER PRN 03/10/2022 03/10/2023 Acti ve documented as of this encounter (statuses as of 09/23/2022) Active Problems Problem Noted Date Decreased functional [...] as of this encounter (statuses as of 09/23/2022) Resolved Problems Problem Noted Date Resolved Date [...] 12/21/2008 Atrial septal aneurysm 02/04/2006 9 terminal operator current use 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 [...] as of this encounter (statuses as of 09/23/2022) Immunizations Name Administration Dates Next Due H1N1 [...] this encounter Progress Notes * Vignesh Whitaker, dental laboratory technology teacher - 09/23/2022 3:43 PM EST Contacts Type Contact Phone/Fax 09/23/2022 03:41 PM EST Phone (Outgoing) Kimberly Kendall (Self) [phone] (M) Patient Findings Negatives: Signs/symptoms of thrombosis, [...] noted by Pharmacist: Yes DANIEL Morley Tech 09/23/2022, 3:43 PM * Kim Mercado RPh - 09/23/2022 8:54 AM EST Coumadin Clinic (region specific) Current Warfarin Dose As of 09/23/2022 Warfarin maintenance plan: 5 mg (5 mg x 1) every day; Starting 09/23/2022 INR Result As of 09/23/2022 INR goal: 2.0-3.0 INR used for dosin.3 (09/22/2022) Warfarin Plan As of 09/23/2022 Full warfarin instructions: 5 mg every day; Starting 09/23/2022 No change documented: Kim Mercado RPh Next INR check: 10/06/2022 Repeat PT/INR in 2 week(s) Weekly dose: not changed Additional Dosing Information: Description [facility] Also sent MyG after trying to call 01/13/23 - People Pattern Tech to contact patient with dose instructions as noted. Kim Mercado RPh 09/23/2022, 8:54 AM documented in this encounter Plan of Treatment Upcoming Encounters Date Type Specialty Care Team Description 10/06/2022 Laboratory Laboratory Processing [facility] Mobile Home Draw [address] [place] [address] 10/07/2022 [facility] [address] [place] [address] 10/12/2022 Telemedicine Psychiatry Hugo Alcantara MD [address] [place] [address] 11/18/2022 Therapy Psychiatry Roger Drake, PhD 200 [place] [address] 12/02/2022 Office Visit Pulmonary Jesus Bonilla MD [address] [place] [address] 01/13/2023 Procedure Only Endoscopy Shaneka Santiago MD 132 [facility] [place] [address] 03/17/2023 PulmDiagnostic Pulmonary Function West, Pft 132 [facility] [place] [address] Health Maintenance Due Date Last Done Comments [...] 03/20/2009 LUNG CANCER SCREENING - USE SMARTSET 20194 Completed 03/16/2022 Influenza Vaccine (FLU shot) Completed [...] monitoring documented in this encounter Care Teams Vertical Lathe Operator Relationship Specialty Start Date End Date Roger Alexandra MD [address] [place] [address] [place] [address] PCP - General Family Medicine 12/29/19 documented as of this encounter
--- OUTSIDE RECORDS SUMMARY | 2023-07-25 04:28 | External Medical Summary | Summary of Care ---
Author Name Unknown Organization [place] [address] Care Team Providers Care Mine Equipment Design Engineer Name Role Phone Roger Alexandra MD Primary Care Provider [phone] [phone] Reason for Visit * Reason Comments case management Encounter Details Date Type Department Care Team Description 09/25/2022 Supervisor Shed WorkersCold Type Composing Machine Operator[address] [place] [address] Yara Morris, RN Medical home patient encounter* Allergies Active Allergy Reactions Severity Noted Date Comments Aspirin Unknown 12/12/2007 von Willebrand's disease Salicylates 03/01/2000 von Willebrand's disease documented as of this encounter (statuses as of 09/25/2022) Medications Medication Sig Dispensed Refills Start Date End Date Status Furosemide 20 MG Oral Tablet (Lasix) Take by mouth 1 Tablet daily as needed (lower leg swelling). 30 Tablet 11 01/23/2022 Active Warfarin Sodium 5 MG Oral Tablet (Coumadin)Indications :Paroxysmal atrial fibrillation (HCC) Take by mouth 1 Tablet in the evening. OR As directed by coumadin clinic. 90 Tablet 3 02/16/2022 Active Nystatin 216763 UNIT/GM External Powder (Nyamyc) apply to affected [...] bedtime. 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 90 Tablet 0 09/24/2022 Active Hospital, Clinic, or Other Facility Administered [...] as of this encounter (statuses as of 09/25/2022) Active Problems Problem Noted Date Decreased functional [...] as of this encounter (statuses as of 09/25/2022) Resolved Problems Problem Noted Date Resolved Date [...] as of this encounter (statuses as of 09/25/2022) Immunizations Name Administration Dates Next Due H1N1 [...] Progress Notes * Yara Morris RN - 09/25/2022 9:22 AM EST Encounter created in Error documented in this encounter Plan of Treatment Upcoming Encounters Date Type Specialty Care Team Description 09/30/2022 Office Visit Family Medicine Roger Alexandra MD 132 [facility] [place] [address] 10/06/2022 Laboratory Laboratory Processing [facility], [facility] Mobile Home Draw [address] [facility] [id number] 10/07/2022 [facility] Tele[facility]acy, [facility] [address] [place] [address] 10/12/2022 Telemedicine Psychiatry Hugo Alcantara MD [address] [facility] [place] [address] 11/18/2022 Therapy Psychiatry Roger Drake, PhD 200 [place] [address] 12/02/2022 Office Visit Pulmonary Jesus Bonilla MD [address] [place] [address] 01/13/2023 Procedure Only Endoscopy Shaneka Santiago MD 132 [facility] [place] [address] 03/17/2023 PulmDiagnostic Pulmonary Function West, Pft [address] [facility] [place] [address] Health Maintenance Due Date Last Done Comments [...] 03/20/2009 LUNG CANCER SCREENING - USE SMARTSET [id number] Completed 03/16/2022 Influenza Vaccine (FLU shot) Completed [...] examination documented in this encounter Care Teams Mine Equipment Design Engineer Relationship Specialty Start Date End Date Roger Alexandra MD 132 [place] [address] PCP - General Family Medicine 12/29/19 documented as of this encounter
--- OUTSIDE RECORDS SUMMARY | 2023-07-25 04:28 | External Medical Summary | Summary of Care ---
Author Name Unknown Organization [place] [address] Care Team Providers Care Relief Manager Name Role Phone Roger Alexandra MD Primary Care Provider [phone] [phone] Reason for Visit * Reason Comments case management Encounter Details Date Type Department Care Team Description 09/25/[address] Illustr[address] [place] [address] Yara Morris, RN [...] clinic. 90 Tablet 3 02/16/2022 Active Nystatin 329195 UNIT/GM External Powder (Nyamyc) apply to affected [...] bedtime. 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 ([facility]),Chronic hypoxemic respiratory failure (HCC) Use with nebulized meds 1 Each 0 09/16/2022 Active Full Kit Nebulizer SetIndications:COPD, group D, by GOLD 2017 classification ([facility]),Chronic hypoxemic respiratory failure (HCC) [...] Visit Family Medicine Roger Alexandra MD 132 [place] [address] 10/06/2022 Laboratory Laboratory Processing [facility], [facility] Mobile Home Draw [address] [facility] [place] [id number] 10/07/2022 [facility], [facility] [address] [facility] [address] 10/12/2022 Telemedicine Psychiatry Hugo Alcantara MD [address] [place] [facility] [place] [address] 11/18/2022 Therapy Psychiatry Roger Drake, PhD 200 [place] [address] 12/02/2022 Office Visit Pulmonary Jesus Bonilla MD [address] [facility] [place] [id number] 01/13/2023 Procedure Only Endoscopy Shaneka Santiago MD 132 [facility] [place] [address] 03/17/2023 PulmDiagnostic Pulmonary Function West, Pft 132 [facility] [place] [address] Health Maintenance Due Date Last Done Comments [...] 03/20/2009 LUNG CANCER SCREENING - USE SMARTSET [address]34[address] Completed 03/16/2022 Influenza Vaccine (FLU shot) Completed [...] examination documented in this encounter Care Teams Relief Manager Relationship Specialty Start Date End Date Roger Alexandra MD 132 [place] [address] PCP - General Family Medicine 12/29/19 documented as of this encounter
--- OUTSIDE RECORDS SUMMARY | 2023-07-25 04:28 | External Medical Summary | Summary of Care ---
Author Name Unknown Organization [place] [address] Care Team Providers Care Glass Artist Name Role Phone Roger Alexandra MD Primary Care Provider [phone] [phone] Reason for Visit * Reason Onset Date Comments Advice 09/23/2022 Encounter Details Date Type Department Care Team Description 09/23/2022 Auto Technician Mechanic Telephone Family Practice [facility] 132 [facility] [place] [id number] Yara Morris, palletizer Allergies Active Allergy Reactions Severity Noted Date [...] clinic. 90 Tablet 3 02/16/2022 Active Nystatin 334958 UNIT/GM External Powder (Nyamyc) apply to affected [...] bedtime. 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 ([facility]),Chronic hypoxemic respiratory failure (HCC) Use with nebulized meds 1 Each 0 09/16/2022 Active Full Kit Nebulizer SetIndications:COPD, group D, by GOLD 2017 classification ([facility]),Chronic hypoxemic respiratory failure (HCC) Use with nebulizer 1 Each 0 09/16/2022 Active Hospital, Clinic, or Other Facility Administered Medication Ordered Dose Route Frequency Start Date End Date Status Albuterol Sulfate (Proventil) (2.5 MG/3ML) 0.083% inhalation solution 2.5 mgIndications:Chronic hypoxemic respiratory failure (HCC),COPD, group D, by GOLD 2017 classification ([facility]) 2.5 mg NEBULIZER PRN 03/10/2022 03/10/2023 Acti ve Albuterol Sulfate (Proventil) (5 MG/ML) 0.5% *conc* inhalation solution 2.5 mgIndications:Chronic hypoxemic respiratory failure (HCC),COPD, group D, by GOLD 2017 classification ([facility]) 2.5 mg NEBULIZER PRN [...] Telephone Encounter - Yara Morris RN - 09/23/2022 1:40 PM EST Spoke with Kimberly. She verbalizes understanding and will increase dose today and tomorrow. CM to follow up at end of week. * Telephone Encounter - Roger Alexandra MD - 09/23/2022 1:24 PM EST Okay to double up lasix dose for two days, then return to 20 mg. Tramadol won't help with swelling. * Telephone Encounter - Yara Morris RN - 09/23/2022 12:12 PM EST Shavonne MARTINEZ, with [facility] home health (ph# [phone]) reached out and left a VM on CM line stating that at visit today with the patient she has a reported 5lb weight gain in one day. Has some lower extremity edema and Lower extremity pain. She is asking for tramadol as well as advice on weight gain/swelling. She is reporting ongoing dyspnea. Dr. Alexandra, Would you like to increase diuretic for weight gain? (currently on 20mg lasix daily) Or other advice? Thank you! documented in this encounter Plan of Treatment Upcoming Encounters Date Type Specialty Care Team Description 10/06/2022 Laboratory Laboratory Processing [facility], [facility] Mobile Home Draw [address] [place] [address] 10/12/2022 Telemedicine Psychiatry Hugo Alcantara MD [address] [place], [place] [id number] 11/18/2022 Therapy Psychiatry Roger Drake, PhD [address] [place] [address] 12/02/2022 Office Visit Pulmonary Jesus Bonilla MD [address] [facility] [place] [id number] 01/13/2023 Procedure Only Endoscopy Shaneka Santiago MD [address] [place] [address] 03/17/2023 PulmDiagnostic Pulmonary Function West, Pft [address] [place] [address] Health Maintenance Due Date Last Done [...] 03/20/2009 LUNG CANCER SCREENING - USE SMARTSET 35405 Completed 03/16/2022 Influenza Vaccine (FLU shot) Completed , 11/11/2021, 11/11/2021, Additional history exists GARDASIL-HPV IMMUNIZATION SERIES Aged Out No longer eligible based on patient's age to complete this topic MENINGOCOCCAL (MENACTRA/MENVEO) Aged Out No longer eligible based on patient's age to complete this topic documented as of this encounter Medical Devices Not on filedocumented as of this encounter Care Teams Glass Artist Relationship Specialty Start Date End Date Roger Alexandra MD 132 [place] [address] PCP - General Family Medicine 12/29/19 documented as of this encounter
--- OUTSIDE RECORDS SUMMARY | 2023-07-25 04:28 | External Medical Summary | Summary of Care ---
Author Name Unknown Organization [place] [address] Care Team Providers Care Salon Manager Name Role Phone Roger Alexandra MD Primary Care Provider [phone] [phone] Reason for Visit * Reason Onset Date Comments Medication Refill 10/05/2022 Encounter Details Date Type Department Care Team Description 10/05/2022 Refill [facility] [address] [place] [address] Hugo Alcantara MD [address] [place] [address] Allergies Active Allergy Reactions Severity Noted Date [...] clinic. 90 Tablet 3 02/16/2022 Active Nystatin 525534 UNIT/GM External Powder (Azamyc) apply to affected area twice a day [...] classification ([facility]),Chronic hypoxemic respiratory failure (HCC) Use with nebulized meds 1 Each 0 09/16/2022 Active Full Kit Nebulizer SetIndications:COPD, group D, by GOLD 2017 classification ([facility]),Chronic hypoxemic respiratory failure (HCC) Use with nebulizer [...] at bedtime. 30 Capsule 1 10/05/2022 Active Gabapentin 300 MG Oral Capsule (Neurontin) Take by mouth 1 Capsule before bedtime. 30 Capsule 1 08/03/2022 2 Discontinue d(Refill) Hospital, Clinic, or Other Facility Administered Medication Ordered Dose Route Frequency Start Date End Date Status Albuterol Sulfate (Proventil) (2.5 MG/3ML) 0.083% inhalation solution 2.5 mgIndications:Chronic hypoxemic respiratory failure (HCC),COPD, group D, by GOLD 2017 classification ([facility]) 2.5 mg NEBULIZER PRN 03/10/2022 03/10/2023 Acti ve Albuterol Sulfate (Proventil) (5 MG/ML) 0.5% *conc* inhalation solution 2.5 mgIndications:Chronic hypoxemic respiratory failure (HCC),COPD, group D, by GOLD 2017 classification ([facility]) 2.5 mg NEBULIZER PRN 03/10/2022 03/10/2023 Acti [...] Telephone Encounter - COY Hensley - 10/05/2022 8:22 AM ESTSigned Prescriptions: Disp Refills Gabapentin 300 MG Oral Capsule (Neurontin) 30 Cap*1 Sig: Take 1 Capsule (300 mg) by mouth at bedtime. Authorizing Provider: SALVADOR ESTRADA * Telephone Encounter - Blanche Wilcox LPN - 10/05/2022 6:58 AM EST Pharmacy requesting refill on Neurontin 300mg. Medication was last filled on 08/03/22 with 1 refills. Patient last seen on 08/03/22 with return appointment scheduled for 10/12/22. Patient had 0 cancelled appointments and 0 NO SHOW appointments. documented in this encounter Plan of Treatment Upcoming Encounters Date Type Specialty Care Team Description 10/06/2022 Laboratory Laboratory Processing [facility] Mobile Home Draw [address] [place] [address] 10/07/2022 [facility] [address] [place] [address] 10/12/2022 Telemedicine Psychiatry Hugo Alcantara MD [address] [place] [address] 11/18/2022 Therapy Psychiatry Roger Drake, PhD [address] [place] [address] 11/26/2022 Cardiac Studies Cardiac Studies 12/02/2022 Office Visit Pulmonary Jesus Bonilla MD [address] [facility] [place] [id number] 01/13/2023 Procedure Only Endoscopy Shaneka Santiago MD [address] [place] [address] 03/17/2023 PulmDiagnostic Pulmonary Function West, Pft [address] [place] [address] Health Maintenance Due Date Last Done Comments [...] 03/20/2009 LUNG CANCER SCREENING - USE SMARTSET [address] Completed 03/16/2022 Influenza Vaccine (FLU shot) Completed , 11/11/2021, 11/11/2021, Additional history exists GARDASIL-HPV IMMUNIZATION SERIES Aged Out No longer eligible based on patient's age to complete this topic MENINGOCOCCAL (MENACTRA/MENVEO) Aged Out No longer eligible based on patient's age to complete this topic documented as of this encounter Medical Devices Not on filedocumented as of this encounter Care Teams Salon Manager Relationship Specialty Start Date End Date Roger Alexandra MD 132 [place] [address] PCP - General Family Medicine 12/29/19 documented as of this encounter
--- OUTSIDE RECORDS SUMMARY | 2023-07-25 04:28 | External Medical Summary | Summary of Care ---
Author Name Unknown Organization [place] [address] Care Team Providers Care Protozoologist Name Role Phone Roger Alexandra MD Primary Care Provider [phone] [phone] Reason for Referral * Precert (Within 10 days (routine)) - Authorized Specialty Diagnoses / Procedures Referred By Contac t Referred To Contact Cardiac Studies Diagnoses Idiopathic cardiomyopathy (HCC) Chronic diastolic CHF (congestive heart failure) (HCC) Procedures ECHO, COMPLETE (2D), TRANS-THORACIC Roger Alexandra MD [address] [address] Referral ID Status Reason Start Date Expiration Date V isits Requested Visits Authorized [id number] Authorized Precert 09/30/2022 999 999 Reason for Visit * Reason Comments Routine Exam Follow up Encounter Details Date Type Department Care Team Description 09/30/2022 Office Visit Family Practice [facility] [address] [address] Roger Alexandra MD [address] [address] Chronic hypoxemic respiratory failure (HCC)*; Acquired hypothyroidism; [...] as of this encounter (statuses as of 09/30/2022) Medications Medication Sig Dispensed Refills Start Date End Date Status Warfarin Sodium 5 MG Oral Tablet (Coumadin)Indication s:Paroxysmal atrial fibrillation (HCC) Take by mouth 1 Tablet in the evening. OR As directed by coumadin clinic. 90 Tablet 3 02/16/2022 Active Nystatin 696931 UNIT/GM External Powder (Nyamyc) apply to affected [...] before bedtime. 60 Capsule 5 09/30/2022 Active Furosemide 20 MG Oral Tablet (Lasix) Take by mouth 1 Tablet daily as needed (lower leg swelling). 30 Tablet 11 01/23/2022 2 Discontinue d(Discharge d) Hospital, Clinic, or Other Facility Administered Medication [...] as of this encounter (statuses as of 09/30/2022) Active Problems Problem Noted Date Decreased functional [...] as of this encounter (statuses as of 09/30/2022) Resolved Problems Problem Noted Date Resolved Date [...] as of this encounter (statuses as of 09/30/2022) Immunizations Name Administration Dates Next Due H1N1 [...] Willebrand disease D68.00 Idiopathic cardiomyopathy ([facility]) I42.9 Acquired hypothyroidism E03.9 Super obese E66.9 Chronic bilateral low back pain without sciatica M54.50, G89.29 Paroxysmal atrial fibrillation ([facility]) I48.0 Drug-seeking behavior Z76.5 History of multiple strokes Z86.73 Chronic diastolic CHF (congestive heart failure) ([facility]) I50.32 PTSD (post-traumatic stress disorder) F43.10 COPD, group D, by GOLD 2017 classification ([facility]) J44.9 Chronic hypoxemic respiratory failure ([facility]) J96.11 History of narcotic addiction ([facility]) F11.21 Decreased functional mobility R26.89 Current [...] by coumadin clinic. 90 Tablet 3 Nystatin 376895 UNIT/GM External Powder ([facility]) apply to affected area twice a [...] Bonilla MD 2.5 mg at 05/07/22 1507 Allergy: Review of patient's allergies indicates: Allergen [...] Plan: continue O2 and recs per pulm (E03.9) Acquired hypothyroidism Plan: euthyroid (J44.9) COPD, group D, by GOLD 2017 classification ([facility]) Plan: continue O2 and recs per pulm (G47.33) Obstructive sleep apnea Plan: use cpap (I42.9) Idiopathic cardiomyopathy ([facility]) Plan: ECHO, COMPLETE (2D), TRANS-THORACIC -last echo 2 years ago --- normal EF (I48.0) Paroxysmal atrial fibrillation ([facility]) Plan: continue rx (I50.32) Chronic diastolic CHF (congestive heart failure) ([facility]) Plan: ECHO, COMPLETE (2D), TRANS-THORACIC -will [...] Care Team Description 10/06/2022 Laboratory [facility] Mobile Home Draw [address] [place] [address] 10/07/2022 [facility] [address] [place] [address] 10/12/2022 Telemedicine Psychiatry Hugo Alcantara MD [address] [place] [address] 11/18/2022 Therapy Psychiatry Roger Drake, PhD [address] [place] [address] 11/26/2022 Cardiac Studies Cardiac Studies 12/02/2022 Office Visit Pulmonary Jesus Bonilla MD [address] [place] [address] 01/13/2023 Procedure Only Endoscopy Shaneka Santiago MD [address] [facility] [place] [id number] 03/17/2023 PulmDiagnostic Pulmonary Function [place], Pft [address] [facility] [place] [id number] Scheduled Orders Name Type Priority Associated Diagnoses [...] 03/20/2009 LUNG CANCER SCREENING - USE SMARTSET 69306 Completed 03/16/2022 Influenza Vaccine (FLU shot) Completed [...] systems documented in this encounter Care Teams Protozoologist Relationship Specialty Start Date End Date Roger Alexandra MD [address] [address] PCP - General Family Medicine 12/29/19 documented as of this encounter
--- OUTSIDE RECORDS SUMMARY | 2023-07-25 04:28 | External Medical Summary | Summary of Care ---
Author Name Unknown Organization [place] [address] Care Team Providers Care Datastage Architect Name Role Phone Jeevan Alexandra MD Primary Care Provider [phone] Reason for Visit * Reason Onset Date Comments Medication Refill 09/22/2022 Encounter Details Date Type Department Care Team Description 09/22/2022 Refill Family Practice [facility] [address] [address] Jeevan Alexandra MD 132 [facility] [address] [place] [address] Chronic bilateral low back pain without sciatica [...] clinic. 90 Tablet 3 02/16/2022 Active Nystatin 173943 UNIT/GM External Powder (Nyamyc) apply to affected [...] 0 Active Baclofen 10 MG Oral Tablet (Lioresal)Indication [...] severe pain 90 Tablet 0 09/23/2022 Active traMADol HCl 100 MG Oral TabletIndications:Ch ronic bilateral low back pain without sciatica take 1 tablet by mouth every 8 hours if needed for moderate pain to severe pain 90 Tablet 0 08/27/2022 2 Discontinue d(Refill) Hospital, Clinic, or Other Facility Administered Medication Ordered Dose Route Frequency Start Date End Date Status Albuterol Sulfate (Proventil) (2.5 MG/3ML) 0.083% inhalation solution 2.5 mgIndications:Chronic hypoxemic respiratory failure (HCC),COPD, group D, by GOLD 2017 classification ([facility]) 2.5 mg NEBULIZER PRN 03/10/2022 03/10/2023 Acti ve Albuterol Sulfate (Proventil) (5 MG/ML) 0.5% *conc* inhalation solution 2.5 mgIndications:Chronic hypoxemic respiratory failure (HCC),COPD, group D, by GOLD 2017 classification ([facility]) 2.5 mg NEBULIZER PRN 03/10/2022 [...] Telephone Encounter - Jeevan Alexandra MD - 09/23/2022 2:38 PM ESTSigned Prescriptions: Disp Refills traMADol HCl 100 MG Oral Tablet 90 Tab*0 Sig: take 1 tablet by mouth every 8 hours if needed for moderate pain to severe pain Authorizing Provider: JEEVAN ALEXANDRA * Telephone Encounter - Deepthi Maki [facility] - 09/23/2022 2:03 PM ESTPending Prescriptions: Disp Refills traMADol HCl 100 MG Oral Tablet 90 Tab*0 Sig: take 1 tablet by mouth every 8 hours if needed for moderate pain to severe pain * Telephone Encounter - Deepthi Maki [facility] - 09/23/2022 2:03 PM EST I have reviewed the patients controlled substance dispensing history in the Prescription Drug Monitoring Program in compliance with the [facility] regulations before prescribing a controlled substance. PDMP checked on 09/23/2022. Pending Prescriptions: Disp Refills traMADol HCl 100 MG Oral Tablet 90 Tab*0 Sig: take 1 tablet by mouth every 8 hours if needed for moderate pain to severe pain Last Visit: 08/28/2022 (in office), 03/14/2021 (telemedicine) Next Visit: Visit date not found Date medication was last filled: 08/28/22 Date medication is due for refill: 09/26/22 [facility]acy: [facility] #[id number] Is this request for a controlled [...] Results Review. Please approve if appropriate. Thanks, Deepthi Maki PharmD Clinical Pharmacist Telepharmacy [phone] 09/23/2022 2:03 PM * Telephone Encounter - DANIEL Aragon Tech - 09/22/2022 12:27 PM EST Did you pend patient's preferred pharmacy and medication before forwarding?yes Pharmacy: [facility] #[id number] Pending Prescriptions: Disp Refills traMADol HCl 100 MG Oral Tablet 90 Tab*0 Sig: take 1 tablet by mouth every 8 hours if needed for moderate pain to severe pain Last Visit: 08/28/2022 (in office), 03/14/2021 (telemedicine) Next Visit: Visit date not found If no future appointments scheduled, and last appointment is greater than a year ago, please schedule patient for a follow-up appointment Last date the medication was ordered: 08/27/2022 Is this request for a controlled substance?Yes, What was the last refill date 08/27/2022 w/ quantity 90 and dosage 100 mg [...] Care Team Description 10/06/2022 Laboratory Laboratory Processing [facility] Mobile Home Draw [address] [place] [address] 10/07/2022 [facility] [place] [address] [address] [place] [address] 10/12/2022 Telemedicine Psychiatry Hugo Alcantara MD [address] [place] [address] 11/18/2022 Therapy Psychiatry Jeevan Drake, PhD [address] [place] [address] 12/02/2022 Office Visit Pulmonary Jesus Bonilla MD [address] [address] 01/13/2023 Procedure Only Endoscopy Shaneka Santiago MD 132 [facility] [address] [address] 03/17/2023 PulmDiagnostic Pulmonary Function [place], Pft [address] [address] Health Maintenance Due Date Last Done Comments [...] 03/20/2009 LUNG CANCER SCREENING - USE SMARTSET 90828 Completed 03/16/2022 Influenza Vaccine (FLU shot) Completed [...] sciatica documented in this encounter Care Teams Datastage Architect Relationship Specialty Start Date End Date Jeevan Alexandra MD [address] [address] PCP - General Family Medicine 12/29/19 documented as of this encounter
--- OUTSIDE RECORDS SUMMARY | 2023-07-25 04:28 | External Medical Summary | Summary of Care ---
Author Name Unknown Organization [place] [address] Care Team Providers Care Founder Ceo & President Name Role Phone Jeevan Mclean MD Primary Care Provider [phone] Reason for Visit * Reason Onset Date Comments Medication Refill 09/29/2022 Encounter Details Date Type Department Care Team Description 09/29/2022 Refill Family Practice [facility] [address] [address] Jeevan Mclean MD 132 [facility] [address] [place] [address] Bronchitis, complicated Allergies Active Allergy Reactions Severity Noted Date Comments Aspirin Unknown 12/12/2007 von Willebrand's disease Salicylates 03/01/2000 von Willebrand's disease documented as of this encounter (statuses as of 09/29/2022) Medications Medication Sig Dispensed Refills Start Date End Date Status Furosemide 20 MG Oral Tablet (Lasix) Take by mouth 1 Tablet daily as needed (lower leg swelling). 30 Tablet 11 01/23/2022 Active Warfarin Sodium 5 MG Oral Tablet (Coumadin)Indication s:Paroxysmal atrial fibrillation (HCC) Take by mouth 1 Tablet in the evening. OR As directed by coumadin clinic. 90 Tablet 3 02/16/2022 Active Nystatin 746320 UNIT/GM External Powder (Nyamyc) apply to affected area twice a day 15 g 1 05/19/2022 Active oxygen IN GASIndications:Chron ic hypoxemic respiratory failure (HCC),COPD, group D, by GOLD 2017 classification ([facility]) Use 2 LPM at [...] SetIndications:COPD, group D, by GOLD 2017 classification (HCC),Chronic [...] for Wheezing. 90 mL 3 09/29/2022 Active ProAir HFA 108 (90 Base) MCG/ACT Inhalation Aerosol SolutionIndications: Bronchitis, complicated Inhale by mouth 2 Puffs 4 times a day . 18 g 1 09/15/2022 2 Discontinue d(Refill) Ipratropium-Albutero l 0.5-2.5 (3) MG/3ML Inhalation Solution (Duoneb) Inhale by mouth 3 mL every 6 hours as needed for Wheezing. 90 mL 3 09/15/2022 2 Discontinue d(Refill) Hospital, Clinic, or Other [...] as of this encounter (statuses as of 09/29/2022) Active Problems Problem Noted Date Decreased functional [...] as of this encounter (statuses as of 09/29/2022) Resolved Problems Problem Noted Date Resolved Date [...] as of this encounter (statuses as of 09/29/2022) Immunizations Name Administration Dates Next Due H1N1 [...] Telephone Encounter - Jeevan Mclean MD - 09/29/2022 1:03 PM ESTSigned Prescriptions: Disp Refills ProAir HFA 108 (90 Base) MCG/ACT Inhalatio*18 g 1 Sig: Inhale 2 Puffs by mouth in the morning and 2 Puffs at noon and 2 Puffs in the evening and 2 Puffs before bedtime. Authorizing Provider: JEEVAN MCLEAN Ipratropium-Albuterol 0.5-2.5 (3) MG/3ML I*90 mL 3 Sig: Inhale 3 mL by mouth every 6 hours as needed for Wheezing. Authorizing Provider: JEEVAN MCLEAN * Telephone Encounter - Myesha Dhillon [facility] - 09/29/2022 1:01 PM EST Pending Prescriptions: Disp Refills ProAir HFA 108 (90 Base) MCG/ACT Inhalati*18 g 1 Sig: Inhale 2 Puffs by mouth in the morning and 2 Puffs at noon and 2 Puffs in the evening and 2 Puffs before bedtime. Ipratropium-Albuterol 0.5-2.5 (3) MG/3ML *90 mL 3 Sig: Inhale 3 mL by mouth every 6 hours as needed for Wheezing. Last Visit: 08/28/2022 (in office), 03/14/2021 (telemedicine) Next Visit: 09/30/2022 Last date the medication was ordered:09/15/2022 Patient Active Problem List Diagnosis Code Irritable bowel syndrome with diarrhea K58.0 Medical home patient encounter Z00.8 Depression with anxiety F41.8 Obstructive sleep apnea G47.33 Von Willebrand disease D68.00 Idiopathic cardiomyopathy (HCC) I42.9 Acquired hypothyroidism E03.9 Super obese E66.9 Chronic bilateral low back pain without sciatica M54.50, G89.29 Paroxysmal atrial fibrillation ([facility]) I48.0 Drug-seeking behavior Z76.5 History of multiple strokes Z86.73 Chronic diastolic CHF (congestive heart failure) ([facility]) I50.32 PTSD (post-traumatic stress disorder) F43.10 COPD, group D, by GOLD 2017 classification ([facility]) J44.9 Chronic hypoxemic respiratory failure ([facility]) J96.11 History of narcotic addiction ([facility]) F11.21 Decreased functional mobility R26.89 Labs: Lab Results Component Value Date/Time CREATININE - [facility] 0.7 01/15/2022 05:45 AM CREATININE - [facility] 0.7 10/17/2020 03:40 PM CREATININE NARESH 252 03/08/2014 10:22 AM CREATININE, RAND URINE-CAT 42 08/13/2011 11:08 AM CREATININE-OUTSIDE LAB 0.77 11/21/2021 12:00 AM Lab Results Component Value Date/Time POTASSIUM - [facility] 3.9 01/15/2022 05:45 AM POTASSIUM - [facility] 4.6 10/17/2020 03:40 PM POTASSIUM-OUTSIDE LAB 2.8 (A) 11/21/2021 12:00 AM Lab Results Component Value Date/Time TSH - [facility] 3.40 12/05/2021 06:33 AM [...] A1C - [facility] 6.0 01/10/1999 11:30 AM * Telephone Encounter - Myesha Dhillon CMA - 09/29/2022 12:40 PM EST Form received and filled out. Will fax back to [facility] [phone]. Received successfully at 1:01pm. * Telephone Encounter - Yara Morris RN - 09/29/2022 11:55 AM EST Patient left a VM on CM line stating the pharmacy needed a ICD code for her duoneb. I called and spoke with the pharmacist at [facility] and provided COPD code from chart of J44.9. This was accepted, but now they need a DWO form completed. This will be faxed to the office to have Dr. Mclean sign and fax back to pharmacy. fyi- Nurses this form is to come via fax. Thanks! documented in this encounter Plan of Treatment Upcoming Encounters Date Type Specialty Care Team Description 09/30/2022 Office Visit Family Medicine Jeevan Mclean MD [address] [place] [address] 10/06/2022 Laboratory Laboratory Processing [facility] Mobile Home Draw [address] [place] [address] 10/07/2022 [facility] [address] [facility] [address] 10/12/2022 Telemedicine Psychiatry Hugo Alcantara MD [address] [place] [address] 11/18/2022 Therapy Psychiatry Jeevan Drake, PhD [address] [place] [address] 12/02/2022 Office Visit Pulmonary Jesus Bonilla MD [address] [facility] [place] [address] 01/13/2023 Procedure Only Endoscopy Shaneka Santiago MD [address] [facility] [address] 03/17/2023 PulmDiagnostic Pulmonary Function [place], Pft 132 [facility] [address] [address] Health Maintenance Due Date Last Done Comments [...] 03/20/2009 LUNG CANCER SCREENING - USE SMARTSET 01087 Completed 03/16/2022 Influenza Vaccine (FLU shot) Completed [...] chronic documented in this encounter Care Teams Founder Ceo & President Relationship Specialty Start Date End Date Jeevan Mclean MD [address] [address] PCP - General Family Medicine 12/29/19 documented as of this encounter
--- OUTSIDE RECORDS SUMMARY | 2023-07-25 04:28 | External Medical Summary | Summary of Care ---
Author Name Unknown Organization [place] [address] Care Team Providers Care Advanced Practice Rn Name Role Phone Roger Alexandra MD Primary Care Provider [phone] [phone] Reason for Visit * Reason Comments eRx-Medication Refill Encounter Details Date Type Department Care Team Description 09/24/2022 Refill Family Practice [facility] [address] [address] Matt Mathew DO [address] [address] Chronic bilateral low back pain without sciatica [...] clinic. 90 Tablet 3 02/16/2022 Active Nystatin 333294 UNIT/GM External Powder (Nyamyc) apply to affected area twice a day 15 g 1 05/19/2022 Active oxygen IN GASIndications:Chroni c hypoxemic respiratory failure (HCC),COPD, group D, by GOLD 2017 classification ([facility]) Use 2 LPM at rest, 4 [...] bedtime. 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 [...] [facility]) 2.5 mg NEBULIZER PRN 03/10/2022 03/10/2023 Acti ve Albuterol Sulfate (Proventil) (5 MG/ML) 0.5% *conc* inhalation solution 2.5 mgIndications:Chronic hypoxemic respiratory failure (HCC),COPD, group D, by GOLD 2017 classification ([facility]) 2.5 mg NEBULIZER PRN 03/10/2022 03/10/2023 [...] encounter Miscellaneous Notes * Telephone Encounter - Kerry Carias [facility] - 09/25/2022 1:13 PM ESTRefused Prescriptions: Disp Refills Baclofen 10 MG Oral Tablet (Lioresal) 90 Tab*0 Sig: take 1 tablet by mouth three times a day if needed for muscle spasmRefused By: KERRY CARIAS for Refusal: Duplicate Request documented in this encounter Plan of Treatment Upcoming Encounters Date Type Specialty Care Team Description 09/30/2022 Office Visit Family Medicine Roger Alexandra MD [address] [address] 10/06/2022 Laboratory Laboratory Processing [facility] Mobile Home Draw [address] [place] [address] 10/07/2022 [facility] [place] [address] [address] [place] [address] 10/12/2022 Telemedicine Psychiatry Hugo Alcantara MD [address] [place] [address] 11/18/2022 Therapy Psychiatry Roger Drake, PhD [address] [place] [address] 12/02/2022 Office Visit Pulmonary Jesus Bonilla MD [address] [place], [place] [address] 01/13/2023 Procedure Only Endoscopy Shaneka Santiago MD [address] [address] 03/17/2023 PulmDiagnostic Pulmonary Function [place], Pft [address] [address] Health Maintenance Due Date Last Done Comments [...] 03/20/2009 LUNG CANCER SCREENING - USE SMARTSET [address] Completed 03/16/2022 Influenza Vaccine (FLU shot) Completed [...] sciatica documented in this encounter Care Teams Advanced Practice Rn Relationship Specialty Start Date End Date Roger Alexandra MD [address] [address] PCP - General Family Medicine 12/29/19 documented as of this encounter
--- OUTSIDE RECORDS SUMMARY | 2023-07-25 04:28 | External Medical Summary | Summary of Care ---
Author Name Unknown Organization [place] [address] Care Team Providers Care Director Of Business Applications Name Role Phone Roger Alexandra MD Primary Care Provider [phone] [phone] Reason for Visit * Reason Onset Date Comments Appointment 09/24/2022 Encounter Details Date Type Department Care Team Description 09/24/2022 Manager Regional Telephone Family Practice [facility] [address] [facility] [address] [place] [id number] Yara Morris, RN Appointment Allergies Active Allergy Reactions Severity Noted [...] clinic. 90 Tablet 3 02/16/2022 Active Nystatin 361678 UNIT/GM External Powder (Nyamyc) apply to affected [...] bedtime. 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 home health nurse Gracie (ph# [phone]) To reportpatients ongoing symptoms of feeling SOB, she reported to home health that she has chest diiscomfort with use of incentive spirometry. Vitals were stable, pulse ox 96%, BP 112/80 and pulse 100. No fever or chills reported. She is anxious during HH visit. Her weight/swelling has decreased today fromyesterday (see encounter from yesterday) Re-faxed orders to [facility] for UA as per nurse Gracie she did not receive this. Scheduling, Can you please reach out this patient be scheduled for first available opening to eval in office? Thank you documented in this encounter Plan of Treatment Upcoming Encounters Date Type Specialty Care Team Description 09/30/2022 Office Visit Family Medicine Roger Alexandra MD [address] [address] 10/06/2022 Laboratory Laboratory [place] [facility] [place] [facility] Mobile Home Draw [address] [place] [address] 10/07/2022 Anticoagulation Pharmacy Telepharmacy, [facility] [address] [place] [address] 10/12/2022 Telemedicine Psychiatry Hugo Alcantara MD [address] [place] [address] 11/18/2022 Therapy Psychiatry Roger Drake, PhD [address] [place] [address] 12/02/2022 Office Visit Pulmonary [facility] MD [address] [facility] [address] 01/13/2023 Procedure Only Endoscopy Shaneka aSntiago MD [address] [address] 03/17/2023 PulmDiagnostic Pulmonary Function [place], t [address] [address] Health Maintenance Due Date Last Done Comments [...] 03/20/2009 LUNG CANCER SCREENING - USE SMARTSET 93316 Completed 03/16/2022 Influenza Vaccine (FLU shot) Completed , 11/11/2021, 11/11/2021, Additional history exists GARDASIL-HPV IMMUNIZATION SERIES Aged Out No longer eligible based on patient's age to complete this topic MENINGOCOCCAL (MENACTRA/MENVEO) Aged Out No longer eligible based on patient's age to complete this topic documented as of this encounter Medical Devices Not on filedocumented as of this encounter Care Teams Director Of Business Applications Relationship Specialty Start Date End Date Roger Alexandra MD [address] [address] PCP - General Family Medicine 12/29/19 documented as of this encounter
--- OUTSIDE RECORDS SUMMARY | 2023-07-25 04:28 | External Medical Summary | Summary of Care ---
Author Name Unknown Organization [place] [address] Care Team Providers Care Director Of Cardiopulmonary Services Name Role Phone Jeevan Mclean MD Primary Care Provider [phone] Reason for Visit * Reason Onset Date Comments Medication Refill 09/15/2022 Encounter Details Date Type Department Care Team Description 09/15/2022 Refill Family Practice [facility] [address] [place] [id number] Yara Morris RN Bronchitis, complicated Allergies Active Allergy Reactions Severity Noted Date Comments Aspirin Unknown 12/12/2007 von Willebrand's disease Salicylates 03/01/2000 von Willebrand's disease documented as of this encounter (statuses as of 09/29/2022) Medications Medication Sig Dispensed Refills Start Date End Date Status Furosemide 20 MG Oral Tablet (Lasix) Take by mouth 1 Tablet daily as needed (lower leg swelling). 30 Tablet 11 2 Active Warfarin Sodium 5 MG Oral Tablet (Coumadin)Indicati ons:Paroxysmal atrial fibrillation (HCC) Take by mouth 1 Tablet in the evening. OR As directed by coumadin clinic. 90 Tablet 3 2 Active Nystatin 957139 UNIT/GM External Powder (Nyamyc) apply to affected [...] mouth daily 30 Tablet 5 2 Active Gabapentin 300 MG Oral Capsule (Neurontin) Take by mouth 1 Capsule before bedtime. 30 Capsule 1 2 Active Mirtazapine 30 MG Oral [...] Capsule before bedtime. 60 Capsule 0 2 Active Disposable Brief X-LargeIndications :Overactive bladder Attends X-Large Super Absorb Underwear 32 Each 2 2 Active ProAir HFA 108 (90 Base) MCG/ACT Inhalation Aerosol SolutionIndication s:Bronchitis, complicated Inhale by mouth 2 Puffs 4 times a day . 18 g 1 2 Active Ipratropium-Albute rol 0.5-2.5 (3) MG/3ML Inhalation Solution (Duoneb) Inhale by mouth 3 mL every 6 hours as needed for Wheezing. 90 mL 3 2 Active ProAir HFA 108 (90 Base) MCG/ACT Inhalation Aerosol SolutionIndication s:Bronchitis, complicated Inhale by mouth 2 Puffs 4 times a day . 18 g 1 2 09/15/20 22 Discontinued(Ref ill) Trelegy Ellipta 100-62.5-25 MCG/INH Aerosol Powder Breath Activated (fluticasone-umecl idinium-vilanterol )Indications:COPD, group D, by GOLD 2017 classification ([facility]) Inhale by mouth 1 Puff in the morning. 60 Blister Dosing Unit 3 2 09/16/20 22 Discontinued Baclofen 10 MG Oral Tablet (Lioresal)Indicati ons:Chronic bilateral low back pain without sciatica Take by mouth 1 Tablet as needed in the morning AND 1 Tablet as needed at noon AND 1 Tablet as needed in the evening for Muscle spasms. 90 Tablet 0 2 09/24/20 22 Discontinued(Ref ill) traMADol HCl 100 MG Oral TabletIndications: Chronic bilateral low back pain without sciatica take 1 tablet by mouth every 8 hours if needed for moderate pain to severe pain 90 Tablet 0 2 09/22/20 22 Discontinued(Ref ill) Ipratropium-Albute rol 0.5-2.5 (3) MG/3ML Inhalation Solution (Duoneb) Inhale by mouth 3 mL every 6 hours as needed . 0 09/15/20 22 Discontinued(Ref ill) Hospital, Clinic, or Other Facility Administered Medication Ordered Dose Route Frequency Start Date End Date Status Albuterol Sulfate (Proventil) (2.5 MG/3ML) 0.083% inhalation solution 2.5 mgIndications:Chronic hypoxemic respiratory failure (HCC),COPD, group D, by GOLD 2017 classification ([facility]) 2.5 mg NEBULIZER PRN 03/10/2022 03/10/2023 Acti ve Albuterol Sulfate (Proventil) (5 MG/ML) 0.5% *conc* inhalation solution 2.5 mgIndications:Chronic hypoxemic respiratory failure (HCC),COPD, group D, by GOLD 2017 classification ([facility]) 2.5 mg NEBULIZER PRN 03/10/2022 03/10/2023 Acti [...] Notes * Telephone Encounter - DANIEL Olmstead Tech - 09/29/2022 10:35 AM EST Pt calling stating the pharmacy needs the diagnosis code for the Duoneb to be able to bill the insurance. If appropriate, please send script to [id number]- [place] Thanks, Oliverio Aguirre t [facility] Refill Call Center 09/29/2022,10:35 AM * Telephone Encounter - Jeevan Mclean MD - 09/15/2022 11:01 AM EDTSigned Prescriptions: Disp Refills ProAir HFA 108 (90 Base) MCG/ACT Inhalatio*18 g 1 Sig: Inhale by mouth 2 Puffs 4 times a day . Authorizing Provider: JEEVAN MCLEAN Ipratropium-Albuterol 0.5-2.5 (3) MG/3ML I*90 mL 3 Sig: Inhale by mouth 3 mL every 6 hours as needed for Wheezing. Authorizing Provider: JEEVAN MCLEAN * Telephone Encounter - Yara Morris RN - 09/15/2022 10:56 AM EDT Patient asking for a refill of hand held inhaler and a new Rx for nebulizer solution (what she currently has is ) Pended CAGE MAKER MACHINE, And duoneb, if appropriate Dr. Mclean? Thanks! documented in this encounter Plan of Treatment Upcoming Encounters Date Type Specialty Care Team Description 09/30/2022 Office Visit Family Medicine Jeevan Mclean MD [address] [place] [address] 10/06/2022 Laboratory Laboratory Processing [facility] [place], [facility] Mobile Home Draw [address] [place] [address] 10/07/2022 [facility] [address] [place] [address] 10/12/2022 Telemedicine Psychiatry Hugo Alcantara MD [address] [place] [facility] [place] [address] 11/18/2022 Therapy Psychiatry Jeevan Drake, PhD [address] [place] [address] 12/02/2022 Office Visit Pulmonary Jesus Bonilla MD [address] [place] [facility] [place] [address] 01/13/2023 Procedure Only Endoscopy Shaneka Santiago MD [address] [place] [address] 03/17/2023 PulmDiagnostic Pulmonary Function [place], Pft [address] [place] [address] Health Maintenance Due Date Last Done Comments [...] 03/20/2009 LUNG CANCER SCREENING - USE SMARTSET 14721 Completed 03/16/2022 Influenza Vaccine (FLU shot) Completed [...] chronic documented in this encounter Care Teams Director Of Cardiopulmonary Services Relationship Specialty Start Date End Date Jeevan Mclean MD [address] [place] [address] PCP - General Family Medicine 12/29/19 documented as of this encounter
--- OUTSIDE RECORDS SUMMARY | 2023-07-25 04:28 | External Medical Summary | Summary of Care ---
Author Name Unknown Organization [place] [address] Care Team Providers Care Steam Blocker Name Role Phone Roger Alexandra MD Primary Care Provider [phone] Reason for Visit * Reason Comments case management Encounter Details Date Type Department Care Team Description 09/29/2022 [place] HeadBeverage Steward[address] [place] [address] Yara Morris, RN [...] clinic. 90 Tablet 3 02/16/2022 Active Nystatin 972945 UNIT/GM External Powder (Nyamyc) apply to affected [...] bedtime. 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 classification ([facility] [...] (HCC),COPD, group D, by GOLD 2017 classification ([facility]) 2.5 mg NEBULIZER PRN 03/10/2022 03/10/2023 Acti ve Albuterol Sulfate (Proventil) (5 MG/ML) 0.5% *conc* inhalation solution 2.5 mgIndications:Chronic hypoxemic respiratory failure (HCC),COPD, group D, by GOLD 2017 classification ([facility]) 2.5 mg NEBULIZER PRN 03/10/2022 [...] Progress Notes * Yara Morris RN - 09/29/2022 12:12 PM EST Chiseler Head Progress Note: Date: 09/29/22 Current Patient Tier: 3 Assessment: Case Management Assessment Is this call for a hospital, custodial or rehab facility discharge to home? Yes RAYSHAWN week 5 Review of Current goals: Connected with patient via telephone. Pt. Noted the following: she is still trying to get nebulizerand medication. She continues to have dyspnea on exertion, O2 sats in the 87's% with activity and @ 94% at rest. She has swelling to BLE, this was improved while she took 3 days of extra lasix. She has an appt tomorrow morning with Dr. Alexandra and will discuss at that time. HH did not obtain a urine sample, she continues to report dark and strong smelling urine. Denies and hematuria, flank pain or fevers. Does notfeel PT is helping. Reports weight today of 294 lb. Discussed the following patient-centered CM goals with [...] progress on the following goals/needs cardio-pulmonary status, urinary symptoms. Noting that contacts from the following parties will occur this week: PCP office visit as additional contacts per workflow. Advancement/Closure Plan: CM Plan : Keep patient at current Tier with reassessment per workflow. Patient provided CM contact information and encouraged to call with any changes in condition. SNP Member? No Does this patient qualify for an annual wellness visit? No PCP Notified of enrollment in CM/HM program: Yes Is Provider in agreement with POC? Yes Yara Morris RN Outpatient Case Management documented in this encounter Plan of Treatment Upcoming Encounters Date Type Specialty Care Team Description 09/30/2022 Office Visit Family Medicine Roger Alexandra MD [address] [place] [address] 10/06/2022 Laboratory Laboratory Processing [facility] [place], [facility] Mobile Home Draw [address] [place] [address] 10/07/2022 [facility] [address] [place] [address] 10/12/2022 Telemedicine Psychiatry Hugo Alcantara MD [address] [place] [address] 11/18/2022 Therapy Psychiatry Roger Drake, PhD [address] [place] [address] 12/02/2022 Office Visit Pulmonary Jesus Bonilla MD [address] [place] [address] 01/13/2023 Procedure Only Endoscopy Shaneka Santiago MD [address] [place] [address] 03/17/2023 PulmDiagnostic Pulmonary Function [place], Pft [address] [place] [address] Health Maintenance Due Date Last Done Comments [...] 03/20/2009 LUNG CANCER SCREENING - USE SMARTSET 36691 Completed 03/16/2022 Influenza Vaccine (FLU shot) Completed [...] examination documented in this encounter Care Teams Steam Blocker Relationship Specialty Start Date End Date Roger Alexandra MD [address] [place] [address] PCP - General Family Medicine 12/29/19 documented as of this encounter
--- OUTSIDE RECORDS SUMMARY | 2023-07-25 04:28 | External Medical Summary | Summary of Care ---
Author Name Unknown Organization [place] [address] Care Team Providers Care Internetworking Technician Name Role Phone Jeevan Mclean MD Primary Care Provider [phone] Reason for Visit * Reason Onset Date Comments Medication Refill 09/15/2022 Encounter Details Date Type Department Care Team Description 09/15/2022 Refill Family Practice [facility] [address] [place] [id number] Yara Morris RN Bronchitis, complicated Allergies Active [...] clinic. 90 Tablet 3 2 Active Nystatin 922270 UNIT/GM External Powder (Nyamyc) apply to affected [...] )Indications:COPD, group D, by GOLD 2017 classification ([facility]) Inhale by mouth 1 Puff in the [...] needed . 0 09/15/20 22 Discontinued(Ref ill) ProAir HFA 108 (90 Base) MCG/ACT Inhalation Aerosol SolutionIndication s:Bronchitis, complicated Inhale by mouth 2 Puffs 4 times a day . 18 g 1 2 09/29/20 22 Discontinued(Ref ill) Ipratropium-Albute rol 0.5-2.5 (3) MG/3ML Inhalation Solution (Duoneb) Inhale by mouth 3 mL every 6 hours as needed for Wheezing. 90 mL 3 2 09/29/20 22 Discontinued(Ref ill) Hospital, Clinic, or Other Facility Administered Medication Ordered Dose Route Frequency Start Date End Date Status Albuterol Sulfate (Proventil) (2.5 MG/3ML) 0.083% inhalation solution 2.5 mgIndications:Chronic hypoxemic respiratory failure (HCC),COPD, group D, by GOLD 2017 classification ([facility]) 2.5 mg NEBULIZER PRN 03/10/2022 03/10/2023 Acti ve Albuterol Sulfate (Proventil) (5 MG/ML) 0.5% *conc* inhalation solution 2.5 mgIndications:Chronic hypoxemic respiratory failure (HCC),COPD, group D, by GOLD 2017 classification ([facility]) 2.5 mg NEBULIZER PRN 03/10/2022 [...] Miscellaneous Notes * Telephone Encounter - Héctor Ojeda RN - 09/29/2022 7:20 PM EST Called, left message for patient to return call to nurse call center. See message below: Please see previous message and also refill encounter from today 09/29/2022. Called and spoke with Michaelle, pharmacist at [facility] and she said she received the information for the Duoneb and it is ready for pickup. * Telephone Encounter - DANIEL Olmstead - 09/29/2022 10:35 AM EST Pt calling stating the pharmacy needs the diagnosis code for the Duoneb to be able to bill the insurance. If appropriate, please send script to [id number]- [place] Thanks, Oliverio Aguirre t [facility] Refill Call Center 09/29/2022,10:35 AM * [...] (what she currently has is ) Pended BOTTLE SELECTOR, And duoneb, if appropriate Dr. Mclean? Thanks! documented in this encounter Plan of Treatment Upcoming Encounters Date Type Specialty Care Team Description 09/30/2022 Office Visit Family Medicine Jeevan Mclean MD [address] [place] [address] 10/06/2022 Laboratory Laboratory Processing [facility] [place], [facility] Mobile Home Draw [address] [place] [address] 10/07/2022 [facility] [address] [place] [address] 10/12/2022 Telemedicine Psychiatry Hugo Alcantara MD [address] [place] [address] 11/18/2022 Therapy Psychiatry Jeevan Drake, PhD [address] [place] [address] 12/02/2022 Office Visit Pulmonary Jesus Bonilla MD [address] [place] [address] 01/13/2023 Procedure Only Endoscopy Shaneka Santiago MD [address] [place] [address] 03/17/2023 PulmDiagnostic Pulmonary Function [place], Pft [address] [place] [address] Health Maintenance Due Date Last Done Comments [...] 03/20/2009 LUNG CANCER SCREENING - USE SMARTSET 48217 Completed 03/16/2022 Influenza Vaccine (FLU shot) Completed [...] chronic documented in this encounter Care Teams Internetworking Technician Relationship Specialty Start Date End Date Jeevan Mclean MD [address] [place] [address] PCP - General Family Medicine 12/29/19 documented as of this encounter
--- OUTSIDE RECORDS SUMMARY | 2023-07-25 04:29 | External Medical Summary | Summary of Care ---
Author Name Unknown Organization [place] [address] Care Team Providers Care Evening Anchor Name Role Phone Roger Alexandra MD Primary Care Provider [phone] Reason for Visit * Reason Comments case management Encounter Details Date Type Department Care Team Description 09/22/[address] [place] [address] Yara Morris, RN [...] clinic. 90 Tablet 3 02/16/2022 Active Nystatin 891400 UNIT/GM External Powder (Nyamyc) apply to affected [...] bedtime. 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 classification [...] by GOLD 2017 classification ([facility]) 2.5 mg NEBULIZER PRN 03/10/2022 03/10/2023 Acti ve Albuterol Sulfate (Proventil) (5 MG/ML) 0.5% *conc* inhalation solution 2.5 mgIndications:Chronic hypoxemic respiratory failure (HCC),COPD, group D, by GOLD 2017 classification ([facility]) 2.5 mg NEBULIZER PRN 03/10/2022 03/10/2023 [...] Progress Notes * Yara Morris RN - 09/22/2022 9:27 AM EST Forensic Manager Progress Note: Date: 09/22/22 Current Patient Tier: 2 Assessment: Case Management Assessment Is this call for a hospital, chcf or rehab facility discharge to home? No Review of Current goals: Connected with patient via phone. Pt. Noted the following: ongoing GUTHRIE. Using oxygen 4LPM at rest and 5LPM with activity. O2 sats were 87% this morning upon waking. Level was 92% while on phone. She is noticing dark and "smelly" urine. She is incontinent and reports a history of uti. Se is HH nurse from [facility]. She has some edema to BLE, she is using lasix daily, 20mg. She is inquiring the statusof hospital bed and nebulizer machine. She is anxious and when asked about any signs of bleeding she states "I can't even focus on that, all I can focus on is my breathing". Discussed the following patient-centered CM goals with the patient during this discussion: -Activity: Patient will increase activity or maintain level as tolerated -Status: On Track patient is ambulating as tolerated, home health PT coming to home. -COPD: Achieve successful management of COPD -Status: At Risk patient oxygen sats drop <90 % with activity. Still awaiting nebulizer maching. -Durable Medical Equipment (DME): Patient will have DME in place and adhere to use -Status: At Risk awaiting hospital bed and nebulizer machine currently. Plan for Future Contacts: Plan to follow up within 2 weeks to check progress on the following goals/needs DME, pulmonary status and urinary symptoms. Noting that contacts from the following parties will occur this week: home health nurse, PT, [facility] as additional contacts per workflow. Advancement/Closure Plan: CM Plan : Graduate to Tier 3 Patient provided CM contact information and encouraged to call with any changes in condition. Instructed to monitor and report any symptoms of infection such As chills, fever or worsening urinary odor/color. Oxygen <90%. SNP Member? No Does this patient qualify for an annual wellness visit? No PCP Notified of enrollment in CM/HM program: Yes Is Provider in agreement with POC? Yes Yara Morris RN Outpatient Case Management documented in this encounter Plan of Treatment Upcoming Encounters Date Type Specialty Care Team Description 09/22/2022 Laboratory Laboratory Processing [facility] [place], [facility] Mobile Home Draw [address] [place] [address] penitentiary (current) use of anticoagulants 09/23/2022 [facility] [address] [place] [address] 10/12/2022 Telemedicine Psychiatry Hugo Alcantara MD [address] [place] [address] 11/18/2022 Therapy Psychiatry Roger Drake, PhD [address] [place] [address] 12/02/2022 Office Visit Pulmonary Jesus Bonilla MD [address] [facility] [place] [address] 01/13/2023 Procedure Only Endoscopy [facility] [address] [facility] [address] 03/17/2023 PulmDiagnostic Pulmonary Function [place], Pft 132 [facility] [place] [address] Health Maintenance Due Date Last Done Comments [...] 03/20/2009 LUNG CANCER SCREENING - USE SMARTSET 07801 Completed 03/16/2022 Influenza Vaccine (FLU shot) Completed , 11/11/2021, 11/11/2021, Additional history exists GARDASIL-HPV IMMUNIZATION SERIES Aged Out No longer eligible based on patient's age to complete this topic MENINGOCOCCAL (MENACTRA/MENVEO) Aged Out No longer eligible based on patient's age to complete this topic documented as of this encounter Medical Devices Not on filedocumented as of this encounter Visit Diagnoses Diagnosis director database (current) use of anticoagulants Long-term (current) use of anticoagulants Medical home patient encounter- Primary Other specified examination documented in this encounter Care Teams Evening Anchor Relationship Specialty Start Date End Date Roger Alexandra MD [address] [place] [address] PCP - General Family Medicine 12/29/19 documented as of this encounter
--- OUTSIDE RECORDS SUMMARY | 2023-07-25 04:29 | External Medical Summary | Summary of Care ---
Author Name Unknown Organization [place] [address] Care Team Providers Care Account Supervisor Name Role Phone Roger Alexandra MD Primary Care Provider [phone] Reason for Visit * Reason Onset Date Comments Other 09/18/2022 Encounter Details Date Type Department Care Team Description 09/18/2022 Telephone Pharmacy Call Center [address] [facility] [place] [address] [facility] [address] [place] [address] Other Allergies Active Allergy Reactions Severity Noted Date Comments Aspirin Unknown 12/12/2007 von Willebrand's disease Salicylates 03/01/2000 von Willebrand's disease documented as of this encounter (statuses as of 09/18/2022) Medications Medication Sig Dispensed Refills Start Date End Date Status Furosemide 20 MG Oral Tablet (Lasix) Take by mouth 1 Tablet daily as needed (lower leg swelling). 30 Tablet 11 01/23/2022 Active Warfarin Sodium 5 MG Oral Tablet (Coumadin)Indications :Paroxysmal atrial fibrillation (HCC) Take by mouth 1 Tablet in the evening. OR As directed by coumadin clinic. 90 Tablet 3 02/16/2022 Active Nystatin 633627 UNIT/GM External Powder (Nyamyc) apply to affected area twice a day 15 g 1 05/19/2022 Active oxygen IN GASIndications:Chroni c hypoxemic respiratory failure (HCC),COPD, group D, by GOLD 2017 classification ([facility]) Use 2 LPM at rest, 4 [...] bedtime. 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 D, group D, by GOLD 2017 classification ([facility]),Chronic hypoxemic respiratory failure (HCC) Use with nebulized meds 1 Each 0 09/16/2022 Active Full Kit Nebulizer SetIndications:COPD, group D, by GOLD 2017 classification ([facility]),Chronic hypoxemic respiratory failure (HCC) Use with [...] as of this encounter (statuses as of 09/18/2022) Active Problems Problem Noted Date Decreased functional [...] as of this encounter (statuses as of 09/18/2022) Resolved Problems Problem Noted Date Resolved Date [...] 02/04/2006 12/21/2008 Atrial septal aneurysm 02/04/2006 9 residential current use 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 0 06/01/2005 [...] as of this encounter (statuses as of 09/18/2022) Immunizations Name Administration Dates Next Due H1N1 [...] Tobacco Use Types Packs/Day Years Used Date Former Smoker Cigarettes 1.5 32 Quit: 2019 Smokeless Tobacco: Never Used Alcohol Use Standard Drinks/Week Comments No 0 [...] Telephone Encounter - Kim Mercado RPh - 09/18/2022 11:46 AM EDT 09/18/2022 11:46 AM Phone (Outgoing) Kimberly Kendall (Self) [phone] (M) Remove Left Message By Kim Mercado RPh Nose bleeds: Patient reports experiencing nose bleeds. [...] use humidifier; do not pick/blow nose. Advised pt if bleeding continues to skip Coumadin today. If gushing lasting more than 20 mins seek medical attention. [facility] scheduled for next draw on 09/22. Kim Mercado Rph, Pharm.D. Clinical Pharmacist [facility] [phone] 09/18/2022,11:47 AM * Telephone Encounter - DANIEL Sawyer Tech - 09/18/2022 8:57 AM EDT Caller's name: kimberly Yoon call back number: [phone] Reason for call: pt calling in states she had a nosebleed this morning. she just resumed her normaldose of the warfarin on wednesday. last inr was high. please advise. Thank you, Kimberly Crooks Information Technology Advisor [facility] 09/18/2022,8:57 AM documented in this encounter Plan of Treatment Upcoming Encounters Date Type Specialty Care Team Description 09/22/2022 Laboratory Laboratory Processing [facility] Draw [address] [place] [address] 09/23/2022 [facility] [address] [place] [address] 10/12/2022 Telemedicine Psychiatry Hugo Alcantara MD [address] [place] [address] 11/18/2022 Therapy Psychiatry Roger Drake, PhD [address] [place] [address] 12/02/2022 Office Visit Pulmonary Jesus Bonilla MD [address] [address] 01/13/2023 Procedure Only Endoscopy Shaneka Santiago MD [address] [place] [address] 03/17/2023 PulmDiagnostic Pulmonary Function [place], [address] [address] [place] [address] Health Maintenance Due Date Last Done Comments [...] exists LUNG CANCER SCREENING - USE SMARTSET [id number] Completed 03/16/2022 Influenza Vaccine (FLU shot) Completed [...] this topic documented as of this encounter Implants Not on filedocumented as of this encounter Advance Directives Documents on File Type Date Recorded Patient Dish Network Installer Expl anation Advanced Directive service a yohana default Advanced Directive Advanced Directive Advanced Directive Advanced Directive Advanced Directive Advanced Directive Advanced Directive Advanced Directive Advanced Directive Advanced Directive Advanced Directive Advanced Directive Advanced Directive Advanced Directive Advanced Directive Advanced Directive Advanced Directive Advanced Directive Advanced Directive Advanced Directive Advanced Directive Advanced Directive Advanced Directive Advanced Directive Advanced Directive Advanced Directive Advanced Directive Advanced Directive Advanced Directive Advanced Directive Advanced Directive Advanced Directive Advanced Directive Advanced Directive Advanced Directive Advanced Directive Advanced Directive Advanced Directive Advanced Directive Advanced Directive Advanced Directive Advanced Directive Advanced Directive Advanced Directive Advanced Directive Advanced Directive Advanced Directive Advanced Directive Advanced Directive Advanced Directive Advanced Directive Advanced Directive Advanced Directive Advanced Directive Advanced Directive Advanced Directive Advanced Directive Advanced Directive Advanced Directive Advanced Directive Advanced Directive Advanced Directive Advanced Directive Advanced Directive Advanced Directive Advanced Directive Advanced Directive Advanced Directive Advanced Directive Advanced Directive Advanced Directive Advanced Directive Advanced Directive Advanced Directive Advanced Directive Advanced Directive Advanced Directive Advanced Directive Advanced Directive Advanced Directive Advanced Directive Advanced Directive Advanced Directive Advanced Directive Advanced Directive Advanced Directive Advanced Directive Advanced Directive Advanced Directive Advanced Directive Advanced Directive Advanced Directive Advanced Directive Advanced Directive Advanced Directive Advanced Directive Advanced Directive Advanced Directive Advanced Directive Advanced Directive Advanced Directive Advanced Directive Advanced Directive Advanced Directive Advanced Directive Advanced Directive Advanced Directive Advanced Directive Advanced Directive Advanced Directive Advanced Directive Advanced Directive Advanced Directive Advanced Directive Advanced Directive Advanced Directive Advanced Directive Advanced Directive Advanced Directive Advanced Directive Advanced Directive Advanced Directive Advanced Directive Advanced Directive Advanced Directive Advanced Directive Advanced Directive Advanced Directive Advanced Directive Advanced Directive Advanced Directive Advanced Directive Advanced Directive Advanced Directive Advanced Directive Advanced Directive Advanced Directive Advanced Directive Advanced Directive Advanced Directive Advanced Directive Advanced Directive Advanced Directive Advanced Directive Advanced Directive Advanced Directive Advanced Directive Advanced Directive Advanced Directive Advanced Directive Advanced Directive Advanced Directive Advanced Directive Advanced Directive Advanced Directive Advanced Directive Advanced Directive Advanced Directive Advanced Directive Advanced Directive Advanced Directive Advanced Directive Advanced Directive Advanced Directive Advanced Directive Advanced Directive Advanced Directive Advanced Directive Advanced Directive Advanced Directive Advanced Directive Advanced Directive Advanced Directive Advanced Directive Advanced Directive Advanced Directive Advanced Directive Advanced Directive Advanced Directive Advanced Directive Advanced Directive Advanced Directive Advanced Directive Advanced Directive Advanced Directive Advanced Directive Advanced Directive Advanced Directive Advanced Directive Advanced Directive Advanced Directive Advanced Directive Advanced Directive Advanced Directive Advanced Directive Advanced Directive Advanced Directive Advanced Directive Advanced Directive Advanced Directive Advanced Directive Advanced Directive Advanced Directive Advanced Directive Advanced Directive Advanced Directive Advanced Directive Advanced Directive Advanced Directive Advanced Directive Advanced Directive Advanced Directive Advanced Directive Advanced Directive Advanced Directive Advanced Directive Advanced Directive Advanced Directive Advanced Directive Advanced Directive Advanced Directive Advanced Directive Advanced Directive Advanced Directive Advanced Directive Advanced Directive Advanced Directive Advanced Directive Advanced Directive Advanced Directive Advanced Directive Advanced Directive Advanced Directive Advanced Directive Advanced Directive Advanced Directive Advanced Directive Advanced Directive Advanced Directive Advanced Directive Advanced Directive Advanced Directive Advanced Directive Advanced Directive Advanced Directive Advanced Directive Advanced Directive Advanced Directive Advanced Directive Advanced Directive Advanced Directive Advanced Directive Advanced Directive Advanced Directive Advanced Directive Advanced Directive Advanced Directive Advanced Directive Advanced Directive Advanced Directive Advanced Directive Advanced Directive Advanced Directive Advanced Directive Advanced Directive Advanced Directive Advanced Directive Advanced Directive Advanced Directive Advanced Directive Advanced Directive Advanced Directive Advanced Directive Advanced Directive Advanced Directive Advanced Directive Advanced Directive Advanced Directive Advanced Directive Advanced Directive Advanced Directive Advanced Directive Advanced Directive Advanced Directive Advanced Directive Advanced Directive Advanced Directive Advanced Directive Advanced Directive Advanced Directive Advanced Directive Advanced Directive Advanced Directive Advanced Directive Advanced Directive Advanced Directive Advanced Directive Advanced Directive Advanced Directive Advanced Directive Advanced Directive Advanced Directive Advanced Directive Advanced Directive Advanced Directive Advanced Directive Advanced Directive Advanced Directive Advanced Directive Advanced Directive Advanced Directive Advanced Directive Advanced Directive Advanced Directive Advanced Directive Advanced Directive Advanced Directive Advanced Directive Advanced Directive Advanced Directive Advanced Directive Advanced Directive Advanced Directive Advanced Directive Advanced Directive Advanced Directive Advanced Directive Advanced Directive Advanced Directive Advanced Directive Advanced Directive Advanced Directive Advanced Directive Advanced Directive Advanced Directive Advanced Directive Advanced Directive Advanced Directive Advanced Directive Advanced Directive Advanced Directive Advanced Directive Advanced Directive Advanced Directive Advanced Directive Advanced Directive Advanced Directive Advanced Directive Advanced Directive Advanced Directive Advanced Directive Advanced Directive Advanced Directive Advanced Directive Advanced Directive Advanced Directive Advanced Directive Advanced Directive Advanced Directive Advanced Directive 11/02/2011 12:00 AM Care Teams Account Supervisor Relationship Specialty Start Date End Date Roger Alexandra MD [address] [place] [address] PCP - General Family Medicine 12/29/19 documented as of this encounter
--- OUTSIDE RECORDS SUMMARY | 2023-07-25 04:29 | External Medical Summary | Summary of Care ---
Author Name Unknown Organization [place] [address] Care Team Providers Care Hides And Skins Colorer Name Role Phone Roger Alexandra MD Primary Care Provider [phone] Reason for Visit * Reason Comments Follow Up COPD Encounter Details Date Type Department Care Team Description 09/16/2022 Office Visit Pulmonary Medicine, [facility] [address] [facility] [address] [place] [address] Jesus Bonilla MD [address] [facility] [place] [address] SOB (shortness of breath)*; COPD, group D, by GOLD 2017 classification (HCC); Chronic hypoxemic respiratory failure (HCC); Chronic diastolic CHF (congestive heart failure) (HCC); Morbid obesity due to excess calories (HCC); Paroxysmal atrial fibrillation (HCC); Obstructive sleep apnea; Muscular deconditioning; History of tobacco abuse Allergies Active Allergy Reactions Severity Noted Date Comments Aspirin Unknown 12/12/2007 von Willebrand's disease Salicylates 03/01/2000 von Willebrand's disease documented as of this encounter (statuses as of 09/16/2022) Medications Medication Sig Dispensed Refills Start Date End Date Status Furosemide 20 MG Oral Tablet (Lasix) Take by mouth 1 Tablet daily as needed (lower leg swelling). 30 Tablet 11 2 Active Warfarin Sodium 5 MG Oral Tablet (Coumadin)Indicatio ns:Paroxysmal atrial fibrillation (HCC) Take by mouth 1 Tablet in the evening. OR As directed by coumadin clinic. 90 Tablet 3 2 Active Nystatin 324527 UNIT/GM External Powder (Nyamyc) apply to affected area twice a day 15 g 1 2 Active oxygen IN GASIndications:Bank Messenger 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 respiratory failure (HCC),COPD, group D, [...] 0 Active Baclofen 10 MG Oral Tablet (Lioresal)Indicatio ns:Chronic bilateral low back pain without sciatica Take by mouth 1 Tablet as needed in the morning AND 1 Tablet as needed at noon AND 1 Tablet as needed in the evening for Muscle spasms. 90 Tablet 0 2 Active traMADol HCl 100 MG Oral TabletIndications:C hronic bilateral low back pain without sciatica take 1 tablet by mouth every 8 hours if needed for moderate pain to severe pain 90 Tablet 0 2 Active Omeprazole 20 MG Oral Capsule Delayed Release (PriLOSEC) Take by mouth 1 Capsule in the morning AND 1 Capsule before bedtime. 60 Capsule 0 2 Active Disposable Brief X-LargeIndications: Overactive bladder Attends X-Large Super Absorb Underwear 32 Each 2 2 Active ProAir HFA 108 (90 Base) MCG/ACT Inhalation Aerosol SolutionIndications :Bronchitis, complicated Inhale by mouth 2 Puffs 4 times a day . 18 g 1 2 Active Ipratropium-Albuter ol 0.5-2.5 (3) MG/3ML Inhalation Solution (Duoneb) Inhale by mouth 3 mL every 6 hours as needed for Wheezing. 90 mL 3 2 Active Fluticasone-Salmete rol 115-21 MCG/ACT Inhalation Aerosol (Advair HFA) Inhale by mouth 2 Puffs in the morning AND 2 Puffs before bedtime. 12 g 12 2 Active Nebulizer DeviceIndications:C OPD, group D, by GOLD 2017 classification ([facility]),Chronic hypoxemic respiratory failure (HCC) Use with nebulized meds 1 Each 0 2 Active Full Kit Nebulizer SetIndications:COPD , group D, by GOLD 2017 classification ([facility]),Chronic hypoxemic respiratory failure (HCC) Use with nebulizer 1 Each 0 2 Active Trelegy Ellipta 100-62.5-25 MCG/INH Aerosol Powder Breath Activated (fluticasone-umecli dinium-vilanterol)I ndications:COPD, group D, by GOLD 2017 classification ([facility]) Inhale by mouth 1 Puff in the morning. 60 Blister Dosing Unit 3 2 09/16/20 22 Discontinued Umeclidinium [facility] 62.5 MCG/INH Inhalation Aerosol Powder Breath Activated (INCRUSE ellipta) Inhale by mouth 1 Puff in the morning. 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 use 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 0 06/01/2005 [...] as of this encounter (statuses as of 09/16/2022) Immunizations Name Administration Dates Next Due H1N1 [...] Reading Time Taken Comments Blood Pressure 134/80 09/16/2022 1:49 PM EDT Pulse 112 09/16/2022 1:49 PM EDT Temperature 35.9 C (96.6 F) 09/16/2022 1:49 PM ED T Respiratory Rate 18 09/16/2022 1:49 PM EDT Oxygen Saturation 93% 09/16/2022 1:49 PM EDT Inhaled Oxygen Concentration - - Weight 130.2 kg (287 lb) 09/16/2022 1:49 PM EDT Height - - Body Mass Index 51.66 09/07/2022 2:12 PM EDT documented in this encounter Progress Notes * Jesus Bonilla MD - 09/16/2022 1:46 PM EDT PULMONARY PROGRESS NOTE REFERRING PHYSICIAN: Roger Alexandra MD HPI: 62-year-old female of multifactorial shortness of COPD gold class D chronic heart failure preserved EF, chronic hypoxic respiratory failure on 2 L at rest 4 L with exertion sleep, atrial fibrillation, embolic CVA, morbid obesity, RUFINA and refuses CPAP, history tobacco dependence here for short interval follow-up. At patient's last visit she was sent emergently to the emergency department for r espiratory distress 08/2022. At last visit patient was admitted to [facility] for COPD exacerbation. Back to usual sob.doesnt want to do full walk test because she is worried about how much it will worsen her sob. Is mainly sedentary. Using 4 L with rest/sleep, 5 L with inogen with exertion She has chronic coughs She denies sputum She has daily wheezes She has occassional night time cough She denies hemoptysis She becomes short of breath after any type of exertion, doing her ADLs. She has had 2 ER visits/hospitalization and 2 courses of prednisone related to their breathing in the past year She is a former smokes She has hx of pneumonia She current inhalers are trelegy (not using due to white powder in her mouth)- was switched to advair hfa at her and prn albuterol. Using mucinex. She denies history of hay fever/seasonal allergies Past Medical History: Diagnosis Date Back disorder Benign neoplasm of colon 10/06/10 adenomatous/repeat colonoscopy in 1 yr Chronic bilateral low back pain without sciatica 10/14/2020 COPD (chronic obstructive pulmonary disease) (HCC) COPD, mild (HCC) 04/06/2007 COPD, severe (HCC) 04/06/2007 Decreased functional mobility 08/28/2022 Depressive disorder, not elsewhere classified Drug-seeking behavior 10/17/2020 Generalized osteoarthritis History of multiple strokes 10/17/2020 History of narcotic addiction ([facility]) 12/19/2021 Hyperplastic colonic polyp Hypothyroidism 04/16/2015 Malaise and fatigue Mixed dyslipidemia Moderate episode of recurrent major depressive disorder ([facility]) 03/05/2020 Morbid obesity due to excess calories ([facility]) 03/05/2020 Narcotic addiction ([facility]) 10/04/2014 Non compliance w medication regimen 10/14/2020 Oxygen dependent 12/29/2019 Paroxysmal atrial fibrillation ([facility]) 10/14/2020 Patent foramen ovale PTSD (post-traumatic stress disorder) 03/05/2021 Schizoaffective disorder, chronic condition ([facility]) followed Dr Robby [facility] Sequelae, post-stroke CVA Status asthmaticus Von Willebrand's disease Past Surgical History: Procedure Laterality Date BREAST BIOPSY Left benign--- done in her late 20' COLONOSCOPY, DIAGNOSTIC (RECTUM) 11/12/2020 large adenomatous polyp, repeat 6 mo / [facility] COLONOSCOPY, W/BIOPSY 10/06/2010 adenomatous/repeat colonoscopy in 1 yr COLONOSCOPY, W/BIOPSY 05/22/2013 hyperplastic polyp EGD, FLEXIBLE, DIAGNOSTIC 02/26/2015 retained food/[facility] EGD, FLEXIBLE, DIAGNOSTIC 11/12/2020 Gastric submucosal mass / [facility] EGD, FLEXIBLE, DIAGNOSTIC 11/06/2020 gastritis / [facility] EGD, FLEXIBLE, W/BIOPSY 05/19/2013 EGD, W/ENDOSCOPIC US 11/05/2011 UPPER GI ENDOSCOPY ENDOSCOPIC ULTRASOUND performed by BERENICE ASHBY at ENDOSCOPY [facility]; REPAIR INITIAL INGUINAL HERNIA REMOVE GALLBLADDER TOTAL HYSTERECTOMY and bso Allergies: Aspirin and Salicylates Current Outpatient Medications Medication Sig Dispense Refill Furosemide 20 MG Oral Tablet (Lasix) Take by mouth 1 Tablet daily as needed (lower leg swelling). 30 Tablet 11 Trelegy Ellipta 100-62.5-25 MCG/INH Aerosol Powder Breath Activated (faskqbfsksa-lrauevhwimil-oqwsnxevba) Inhale by mouth 1 Puff in the morning. 60 Blister Dosing Unit 3 Warfarin Sodium 5 MG Oral Tablet (Coumadin) Take by mouth 1 Tablet in the evening. OR As directed by coumadin clinic. 90 Tablet 3 Nystatin 336998 UNIT/GM External Powder (Nyamyc) apply to affected [...] 25 mg as needed in the evening. Baclofen 10 MG Oral Tablet (Lioresal) Take by mouth 1 Tablet as needed in the morning AND 1 Tablet as needed at noon AND 1 Tablet as needed in the evening for Muscle spasms. 90 Tablet 0 traMADol HCl 100 MG Oral Tablet take 1 tablet by mouth every 8 hours if needed for moderate pain to severe pain 90 Tablet 0 Omeprazole 20 MG Oral Capsule Delayed Release (PriLOSEC) Take by mouth 1 Capsule in the morningAND 1 Capsule before bedtime. 60 Capsule 0 Disposable Brief X-Large Attends X-Large Super Absorb Underwear 32 Each 2 ProAir HFA 108 (90 Base) MCG/ACT Inhalation Aerosol Solution Inhale by mouth 2 Puffs 4 times a day . 18 g 1 Ipratropium-Albuterol 0.5-2.5 (3) MG/3ML [...] MD 2.5 mg at 05/07/22 1507 Social/occupational/living/family history reviewed unchanged SYSTEMS REVIEW: REVIEW OF SYSTEMS CONSTITUTIONAL ROS: No change in weight, +weakness, +fatigue and No fevers, sweats, or chills EYE ROS: No recent significant change in vision, No eye pain, redness, discharge, No diplopia, No h/o cataracts and No h/o glaucoma EAR ROS: No ear pain, No drainage, No tinnitus or vertigo and No recent change in hearing NOSE/THROAT ROS: No history of frequent colds or sinusitis, No nasal stuffiness, No history of Hay Fever and No significant epistaxis MOUTH ROS: No bleeding gums, No thrush or No sore throat NECK ROS: No lumps or masses, No swollen glands, No recent swelling in thyroid area, No significantpain in neck and No h/o goiter or thyroid disease PULMONARY ROS: see HPI CARDIOVASCULAR ROS: No chest pain, No orthopnea, +paroxysmal nocturnal dyspnea, + edema, No palpitations and No syncope GASTROINTESTINAL ROS: No abdominal pain, No change in bowel habits, No significant heartburn, No significant change in appetite, No nausea, vomiting, diarrhea, or constipation, No hematemesis, No blood in stools or black tarry stools, No abdominal bloating or early satiety and No dysphagia HEMATOLOGIC/LYMPHATIC ROS: No coagulation disorder, No anemia, No abnormal bleeding, No chills, No bruising, No HIV risk factors, No night sweats, No swollen nodes, No weight loss and No history of transfusion MSK/EXTREMITIES ROS: No pain, redness or swelling on the joints SKIN/INTEGUMENTARY ROS: No edema, No rash and No itching NEUROLOGICAL ROS: Normal balance, No headaches, No seizures and No weakness PSYCHIATRIC ROS: No depression, No anxiety and No psychosis ALLERGY/IMMUNOLOGIC ROS: No allergic triggers, No sneeze, nasal itch, ocular symptoms of allergy, No reactions to insect sting, No chemical sensitivities and No Food Allergies PHYSICAL EXAM: BP 134/80 | Pulse 112 | Temp 35.9 C (96.6 F) (Tympanic) | Resp 18 | Wt 130.2 kg (287 lb) | UnU781% | BMI 51.66 kg/m | BSA 2.4 m GEN: Morbidly obese middle-aged female, in no acute distress, speaking in complete sentences HEENT: eyes perrla, trachea midline, non-boggy nasal turbinates and no nasal drainage. CHEST: no respiratory distress, no retractions, or abdominal breathing. Lungs decreased breath sounds bilaterally. No egophony, ribs nontender to palpation. CVS: S1,S2 normal, regular rate and rhythm, no murmurs, rubs or gallops ABD: soft, nontender, protuberant, +BS, no organomegaly EXT: 1+ pitting edema in lower extremities bilaterally, posterior tibial and radial pulses 2+ bilaterally, no clubbing in fingers or toes. SKIN: no lesions or rashes, pale, dry Neuro: alert, oriented to person, place and time. Rest of exam nonfocal, GCS 15. ADENOPATHY: no cervical or axillary adenopathy OTHER: rest of exam unremarkable DATA Reviewed the patient's recent discharge summary from her hospitalization 08/20- 08/24/2022. She was hospitalized for acute exacerbation of COPD in acute on chronic hypoxic respiratory failure and was discharged on a prednisone taper. Additionally there is concern for dysphagia due to a globus sensation during swallowing. GI referral had been placed. Chest x-ray during her admission was consistent with COPD without acute changes. Exercise oximetry from 03/2022. Patient was 86% on room air at rest. On 2 L at rest patient was 90%. With exertion patient dropped to 85%. Patient turned to 3 L nasal cannula with low SpO2 88% with exertion. Patient turned up to 4 L. Low- dose SpO2 on 4 L with exertion was 89%. Patient should use 2 L nasal cannula rest 4 L with exertion. PFT from 04/2022 per my interpretation: BMI 53. Flow loops obstructive. Spirometry is normal by ATS. There is no significant bronchodilator response. DLCO uncorrected for hemoglobin is mildly reduced. The finding of isolated reduced diffusing capacity can be seen with anemia, pulmonary vascular disease (such as pulmonary hypertension or pulmonary embolism), cardiac disease, or early or mixed obstructive/restrictive lung disease CT chest without contrast from 03/2022 per my interpretation: There is upper lung predominant paraseptal and centrilobular emphysema. Previously seen bibasilar consolidations have resolved. There is no pleural effusion. There is no pneumothorax. There are no significant lung nodules. There is coronary artery and aortic calcifications. Patient is status post cholecystectomy. There is no mediastinal adenopathy. Echo 10/2020 The qualitative LV ejection fraction is 55-59% [...] ovale documented on prior echocardiogram July 04, 2012 Other: Interm History/Respiratory Symptoms Cough: dry Hemoptysis: no Sinus Symptoms: no Hospitalizations: no ED Trips: no Triggers: exertion Nocturnal: laying down CPAP/BiPAP/O2: O2 @ 4 lpm Flu Vaccine: 08/28/22 Pneumovax: 03/20/09 Prevnar: no COVID 19: no Mmrc Cat Question 09/16/2022 1:48 PM EDT - Filed by Mali Benz LPN When do you become breathless? (4) I am too breathless to leave the house or I am breathless when dressing How frequently do you cough? (3) Do you have phlegm in your chest? (2) Is your chest tight? (5) - My chest feels very tight How breathless do you become when walking up a hill or steps? (5) - When I walk up a hill or oneflight of stairs I am very breathless How [...] condition How much energy do you have? (4) Total MMRC Score (range: 0 - 4) 4 Total CAT Score (range: 0 - 40) 34 Assessment: 1. Shortness of breath multifactorial secondary to COPD, morbid obesity, CHF, deconditioning 2. COPD gold you class D, smoking-related, emphysematous and chronic bronchitic phenotype, recurrent flares, M MRC 4, CT score 34 3. Chronic hypoxic respiratory failure requiring 4 L at rest/sleep, 4 L to 5 L with exertion. This is increased from her most recent walk test. 4. Chronic heart failure preserved EF, euvolemic 5. Atrial fibrillation, sinus rhythm today 6. Morbid obesity BMI 51.66 7. Physical deconditioning 8 RUFINA refuses CPAP Recommendations and Plans: -get exercise oximetry on 2 L nasal cannula sat was her prior baseline. Then will titrate -adjust inhalers 2 Advair 115 HFA 2 puffs twice daily, nebulized DuoNebs four times daily and p.r.n. albuterol by HFA or neb. Discontinue Trelegy as patient did not tolerate. -weight management counseling Done today. -oxygen supplementation as above. -continue diuretics -titrate oxygen for SpO2 90-94%. -anticoagulation per Cardiology/PCP -refuses COVID vaccines. -Covid vaccine information discussed with the patient. They understand it is safe, effective and highly recommended. Given the number, , to call and schedule an appointment to get the vaccine. Can also schedule online at [email or web address]. -follow-up in 3-6 months, in person, sooner if needed -all the patient's and her daughter's questions and concerns were addressed their apparent satisfaction I spent more than 50% of the 25 minute visit counseling and coordinating care. Jesus Bonilla MD Pulmonary Medicine, [address] [address] documented in this encounter Nursing Notes * Mali Benz LPN - 09/16/2022 1:41 PM EDT Chief Complaint Patient presents with Follow Up COPD Interm History/Respiratory Symptoms Cough: dry Hemoptysis: no Sinus Symptoms: no Hospitalizations: no ED Trips: no Triggers: exertion Nocturnal: laying down CPAP/BiPAP/O2: O2 @ 4 lpm Flu Vaccine: 08/28/22 Pneumovax: 03/20/09 Prevnar: no COVID 19: no Mmrc Cat Question 09/16/2022 1:48 PM EDT - Filed by Mali Benz LPN When do you become breathless? (4) I am too breathless to leave the house or I am breathless when dressing How frequently do you cough? (3) Do you have phlegm in your chest? (2) Is your chest tight? (5) - My [...] condition How much energy do you have? (4) Total MMRC Score (range: 0 - 4) 4 Total CAT Score (range: 0 - 40) 34 documented in this encounter Plan of Treatment Upcoming Encounters Date Type Specialty Care Team Description 09/22/2022 Laboratory Laboratory Processing [facility] Mobile Home Draw [address] [place] [address] 09/23/2022 [facility] [address] [place] [address] 10/12/2022 Telemedicine Psychiatry Hugo Alcantara MD [address] [place], [place] [id number] 11/18/2022 Therapy Psychiatry Roger Drake, PhD [address] [place] [address] 12/02/2022 Office Visit Pulmonary Jesus Bonilla MD [address] [place] [address] 01/13/2023 Procedure Only Endoscopy Shaneka Santiago MD [address] [facility] [place] [address] 03/17/2023 PulmDiagnostic Pulmonary Function [facility] [address] [place] [address] Scheduled Orders Name Type Priority Associated Diagnoses Orde r Schedule PULSE OX W/ REST/EXERCISE, MULTIPLE (OP) Procedures Routine COPD, group D, by GOLD 2017 classification (HCC) Chronic hypoxemic respiratory failure (HCC) Expected: 09/16/2022 (Approximate), Expires: 03/15/2023 Health Maintenance Due Date Last Done Comments [...] ASSESSMENT COMPLETED IN PAST YEAR FOR COPD 09/07/2023 09/07/2022 Mammogram 09/04/2024 09/04/2022, 10/15, 04/27/2014, Additional history exists Diabetes Screening 01/15/2025 01/15/2022, 0 01/08/2022, 01/03/2022, Additional history exists COLONOSCOPY-EVERY 5 YRS AGES 18-100 11/12/2025 11/12/2020, 05/22/2013, 08/21/2011, Additional history exists LUNG CANCER SCREENING - USE SMARTSET 54077 Completed 03/16/2022 Influenza Vaccine (FLU shot) Completed [...] as of this encounter Visit Diagnoses Diagnosis SOB (shortness of breath)- Primary Shortness of breath COPD, group D, by GOLD 2017 classification (HCC) Chronic hypoxemic respiratory failure (HCC) Chronic respiratory failure Chronic diastolic CHF (congestive heart failure) (HCC) Chronic diastolic heart failure Morbid obesity due to excess calories (HCC) Paroxysmal atrial fibrillation (HCC) Atrial fibrillation Obstructive sleep apnea Obstructive sleep apnea (adult) (pediatric) Muscular deconditioning Muscular wasting and disuse atrophy, not elsewhere classified History of tobacco abuse Personal history of tobacco use, presenting hazards to health documented in this encounter Advance Directives Documents on File Type Date Recorded Patient Pretzel Twister Expl 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 Advanced Directive 11/02/2011 12:00 AM Care Teams Hides And Skins Colorer Relationship Specialty Start Date End Date Roger Alexandra MD [address] [facility] [place] [address] PCP - General Family Medicine 12/29/19 documented as of this encounter"
--- OUTSIDE RECORDS SUMMARY | 2023-07-25 04:29 | External Medical Summary | Summary of Care ---
Author Name Unknown Organization [place] [address] Care Team Providers Care Retort Firer Name Role Phone Roger Alexandra MD Primary Care Provider [phone] Reason for Visit * Reason Onset Date Comments Order Request 09/14/2022 Encounter Details Date Type Department Care Team Description 09/14/2022 Collections Manager Telephone Family Practice [facility] [address] [facility] [address] [place] [id number] Yara Morris, RN Order Request Allergies Active Allergy Reactions Severity Noted Date Comments Aspirin Unknown 12/12/2007 von Willebrand's disease Salicylates 03/01/2000 von Willebrand's disease documented as of this encounter (statuses as of 09/15/2022) Medications Medication Sig Dispensed Refills Start Date End Date Status Furosemide 20 MG Oral Tablet (Lasix) Take by mouth 1 Tablet daily as needed (lower leg swelling). 30 Tablet 11 01/23/2022 Active Trelegy Ellipta 100-62.5-25 MCG/INH Aerosol Powder Breath Activated (fluticasone-umeclid inium-vilanterol)Ind ications:COPD, group D, by GOLD 2017 classification ([facility]) Inhale by mouth 1 Puff in the morning. 60 Blister Dosing Unit 3 02/13/2022 Active Warfarin Sodium 5 MG Oral Tablet (Coumadin)Indication s:Paroxysmal atrial fibrillation (HCC) Take by mouth 1 Tablet in the evening. OR As directed by coumadin clinic. 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 Order printed and faxed. * Telephone Encounter - Roger Alexandra MD - 09/14/2022 7:59 PM EDT I can order it. I ordered a new nebulizer under DME order. Please print order then fax to appropriate vendor. * Telephone Encounter - Yara Morris RN - 09/14/2022 3:54 PM EDT Is this call for a hospital, alf or rehab facility discharge to home? Yes [facility] 08/24 COPD exacerbation Phone visit for RAYSHAWN follow up. Reports: dyspnea with exertion, uses 4L O2. Sats are >90% at rest, today were 89% after ambulating. Has occasional wheeze, more after activity. She "cant get comfortable" at night, sleeping with multiple pillows. Hospital bed was ordered. Patient reports she used to have a nebulizer machine, but has lost it for quite some time now. She cannot recall what DME provided this to her, or how long ago this was. Dr. Alexandra, Would it be appropriate to order new neb machine for patient? Or would you want this to come from pulm? (pended order) Thank you! documented in this encounter Plan of Treatment Upcoming Encounters Date Type Specialty Care Team Description 09/16/2022 Office Visit Pulmonary Jesus Bonilla MD [address] [place] [address] 09/22/2022 Laboratory Laboratory Processing [facility], [facility] Mobile Home Draw [address] [place] [address] 09/23/2022 [facility] [address] [place] [address] 10/12/2022 Telemedicine Psychiatry Hugo Alcantara MD [address] [place] [address] 11/18/2022 Therapy Psychiatry Roger Drake, PhD [address] [place] [address] 12/02/2022 Office Visit Pulmonary Jesus Bonilla MD [address] [place] [address] 01/13/2023 Procedure Only Endoscopy Shaneka Santiago MD [address] [facility] [address] Health Maintenance Due Date Last Done [...] exists LUNG CANCER SCREENING - USE SMARTSET 53464 Completed 03/16/2022 Influenza Vaccine (FLU shot) Completed [...] respiratory failure (HCC)- Primary Chronic respiratory failure documented in this encounter Advance Directives Documents on File Type Date Recorded 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
--- OUTSIDE RECORDS SUMMARY | 2023-07-25 04:29 | External Medical Summary | Summary of Care ---
Author Name Unknown Organization [place] [address] Care Team Providers Care Silk Top Hat Body Maker Name Role Phone Roger Alexandra MD Primary Care Provider [phone] Reason for Visit * Reason Onset Date Comments Order Request 09/22/2022 Encounter Details Date Type Department Care Team Description 09/22/2022 Frame Gate Mortiser Operator Telephone Family Practice [facility] [address] [place] [id number] Yara Morris, RN Order Request (/) Allergies Active Allergy Reactions Severity Noted [...] clinic. 90 Tablet 3 02/16/2022 Active Nystatin 603439 UNIT/GM External Powder (Nyamyc) apply to affected [...] bedtime. 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 She is incontinent and reporting dark and odorous urine and a hx of uti. She has home health with [facility] (nurse Saez ph# [phone]) who is scheduled to see her tomorrow. Could order straight cath tocollect? Dr. Alexandra, Are you agreeable to sending ua order to for collection? (is pended order correct?) Thank you documented in this encounter Plan of Treatment Upcoming Encounters Date Type Specialty Care Team Description 09/22/2022 Laboratory Laboratory Processing [facility], [facility] Mobile Home Draw [address] [place] [address] jail (current) use of anticoagulants 09/23/2022 Anticoagulation [facility] [address] [place] [address] 10/12/2022 Telemedicine Psychiatry Hugo Alcantara MD [address] [place] [address] 11/18/2022 Therapy Psychiatry Roger Drake, PhD [address] [place] [address] 12/02/2022 Office Visit Pulmonary Jesus Bonilla MD [address] [place], [place] [id number] 01/13/2023 Procedure Only Endoscopy [facility] [address] 03/17/2023 [facility] [address] [facility] [place] [address] Scheduled Orders Name Type Priority Associated Diagnoses Orde r Schedule URINALYSIS, REFLEX TO CULTURE (NOT FOR NEUTROPENIC PATIENTS) Lab Routine Dysuria Expected: 09/23/2022 (Approximate), Expires: 09/22/2023 Health Maintenance Due Date Last Done Comments [...] 03/20/2009 LUNG CANCER SCREENING - USE SMARTSET 11923 Completed 03/16/2022 Influenza Vaccine (FLU shot) Completed , 11/11/2021, 11/11/2021, Additional history exists GARDASIL-HPV IMMUNIZATION SERIES Aged Out No longer eligible based on patient's age to complete this topic MENINGOCOCCAL (MENACTRA/MENVEO) Aged Out No longer eligible based on patient's age to complete this topic documented as of this encounter Medical Devices Not on filedocumented as of this encounter Visit Diagnoses 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
--- OUTSIDE RECORDS SUMMARY | 2023-07-25 04:29 | External Medical Summary | Summary of Care ---
Author Name Unknown Organization [place] [address] Care Team Providers Care Sales Support Associate Name Role Phone Jeevan Mclean MD Primary Care Provider [phone] Reason for Visit * Reason Onset Date Comments Medication Refill 09/15/2022 Encounter Details Date Type Department Care Team Description 09/15/2022 Refill Family Practice [facility] [address] [place] [id number] Yara Morris RN Bronchitis, complicated Allergies Active [...] ndications:COPD, group D, by GOLD 2017 classification (HCC) Inhale by mouth 1 Puff in the morning. 60 Blister Dosing Unit 3 02/13/2022 Active Warfarin Sodium 5 MG Oral Tablet (Coumadin)Indicatio ns:Paroxysmal atrial fibrillation (HCC) Take by mouth 1 Tablet in the evening. OR As directed by coumadin clinic. 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 60 Capsule 0 09/07/2022 Active Disposable Brief X-LargeIndications: Overactive bladder Attends X-Large Super Absorb Underwear 32 Each 2 09/08/2022 Active ProAir HFA 108 (90 Base) MCG/ACT Inhalation Aerosol SolutionIndications :Bronchitis, complicated Inhale by mouth 2 Puffs 4 times a day . 18 g 1 09/15/2022 Active Ipratropium-Albuter ol 0.5-2.5 (3) MG/3ML Inhalation Solution (Duoneb) Inhale by mouth 3 mL every 6 hours as needed for Wheezing. 90 mL 3 09/15/2022 Active ProAir HFA 108 (90 Base) MCG/ACT Inhalation Aerosol SolutionIndications :Bronchitis, complicated Inhale by mouth 2 Puffs 4 times a day . 18 g 1 01/23/2022 2 Discontinue d(Refill) Ipratropium-Albuter ol 0.5-2.5 (3) MG/3ML Inhalation Solution (Duoneb) Inhale by mouth 3 mL every 6 hours as needed . 0 2 Discontinue d(Refill) Hospital, Clinic, or Other [...] Jeevan Mclean MD - 09/15/2022 11:01 AM EDT Signed Prescriptions: Disp Refills ProAir HFA 108 (90 [...] (what she currently has is ) Pended JINRIKSHA DRIVER, And duoneb, if appropriate Dr. Mclean? Thanks! documented in this encounter Plan of Treatment Upcoming Encounters Date Type Specialty Care Team Description 09/16/2022 Office Visit Pulmonary Jesus Bonilla MD [address] [place] [address] 09/22/2022 Laboratory Laboratory Processing [facility] Mobile Home Draw [address] [place] [address] 09/23/2022 [facility] [address] [place] [address] 10/12/2022 Telemedicine Psychiatry Hugo Alcantara MD [address] [place] [address] 11/18/2022 Therapy Psychiatry Jeevan Drake, PhD [address] [place] [address] 12/02/2022 Office Visit Pulmonary Jesus Bonilla MD [address] [place] [address] 01/13/2023 Procedure Only Endoscopy Shaneka Santiago MD [address] [place] [address] Health Maintenance Due Date Last Done Comments [...] exists LUNG CANCER SCREENING - USE SMARTSET [address]60[address] Completed 03/16/2022 Influenza Vaccine (FLU shot) Completed [...] acute or chronic documented in this encounter Advance Directives Documents on File Type Date Recorded Patient Manager News Expl 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 Advanced Directive 11/02/2011 12:00 AM Care Teams Sales Support Associate Relationship Specialty Start Date End Date Jeevan Mclean MD [address] [facility] [address] [place] [address] PCP - General Family Medicine 12/29/19 documented as of this encounter
--- OUTSIDE RECORDS SUMMARY | 2023-07-25 04:29 | External Medical Summary | Summary of Care ---
Author Name Unknown Organization [place] [address] Care Team Providers Care Waxer Tender Name Role Phone Roger Alexandra MD Primary Care Provider [phone] Reason for Visit * Reason Onset Date Comments Advice 09/15/2022 Encounter Details Date Type Department Care Team Description 09/15/2022 Telephone Family Practice [facility] [address] [place] [address] Roger Alexandra MD [address] [facility] [address] [place] [address] Advice Allergies Active Allergy Reactions Severity Noted [...] ications:COPD, group D, by GOLD 2017 classification (HCC) Inhale by mouth 1 Puff in the morning. 60 Blister Dosing Unit 3 02/13/2022 Active Warfarin Sodium 5 MG Oral Tablet (Coumadin)Indication s:Paroxysmal atrial fibrillation (HCC) Take by mouth 1 Tablet in the evening. OR As directed by coumadin clinic. 90 Tablet 3 02/16/2022 Active Nystatin 655259 UNIT/GM External Powder (Nyamyc) apply to affected area twice a day 15 g 1 05/19/2022 Active oxygen IN GASIndications:Chron ic hypoxemic respiratory failure (HCC),COPD, group D, by GOLD 2017 classification ([facility]) Use 2 LPM at rest, [...] Miscellaneous Notes * Telephone Encounter - RUFINA Titus - 09/15/2022 11:10 AM EDT Patient is scheduled for Tomorrow September 16 at 1:40pm * Telephone Encounter - Yara Morris RN - 09/15/2022 10:37 AM EDT Spoke with patient. PT has finished. Her O2 sats are 93% currently. She is very anxious and tearfulon the phone. Encouraged her to rest as HR is currently 103. She is going to take a dose of PRN ativan to try to calm herself. No audible wheezing and no cough heard during phone call. She ran out of MEAT LUGGER albuterol, Working on getting her a neb machine ordered. Will request a refill. She can not make it to pulm opening available today at 11, but would like to be seen sooner in department if possible this week. Pulmonology, Is there any availability this week she could be scheduled for? Thank you * Telephone Encounter - RUFINA Gar - 09/15/2022 10:01 AM EDT Home health called, pt at rest 4 liters oxygen at 91%, hr- 98. With activity uses 5 liters 94%, hr -126. Pt reporting feeling agitated today and is unsure why, told home health aide she get butterflies in stomach while walking or standing, fears something is going to happen, she has a dry cough which is disrupting her sleep, she is having some wheezing, aide listened to lungs, reporting they are not clear. Please advise. Can fax orders to [facility] home health, fax # [phone] documented in this encounter Plan of Treatment Upcoming Encounters Date Type Specialty Care Team Description 09/16/2022 Office Visit Pulmonary Jesus Bonilla MD [address] [id number] 09/22/2022 Laboratory Laboratory Processing [facility], [facility] Mobile Home Draw [address] [place] [address] 09/23/2022 [facility] [address] [place] [address] 10/12/2022 Telemedicine Psychiatry Hugo Alcantara MD [address] [place] [address] 11/18/2022 Therapy Psychiatry Roger Drake, PhD [address] [place] [address] 12/02/2022 Office Visit Pulmonary Jesus Bonilla MD [address] [id number] 01/13/2023 Procedure Only Endoscopy Shaneka Santiago MD [address] [place] [address] Health Maintenance Due Date Last Done Comments [...] exists LUNG CANCER SCREENING - USE SMARTSET [address] Completed 03/16/2022 Influenza Vaccine (FLU shot) Completed [...] Documents on File Type Date Recorded Patient Lab Animal Technologist Expl 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 Advanced Directive 11/02/2011 12:00 AM Care Teams Waxer Tender Relationship Specialty Start Date End Date Roger Alexandra MD [address] [facility] [address] [place] [address] PCP - General Family Medicine 12/29/19 documented as of this encounter
--- OUTSIDE RECORDS SUMMARY | 2023-07-25 04:29 | External Medical Summary | Summary of Care ---
Author Name Unknown Organization [place] [address] Care Team Providers Care Buffing And Polishing Wheel Repairer Name Role Phone Roger Alexandra MD Primary Care Provider [phone] Reason for Referral * Evaluate & Treat - Unlimited Visits (Within 30 days (routine)) - Authorized Specialty Diagnoses / Procedures Referred By Anna t Referred To Contact Gastroenterology Diagnoses Globus sensation oRger Alexandra MD [address] [address] Referral ID Status Reason Start Date Expiration Date Visits Requested Visits Authorized [id number] Authorized Specialty Services Required 2 999 999 Question Answer Referral Priority Within 30 days (routine) For what condition is the patient being referred? All Gastro Conditions Reason for Visit * Reason Onset Date Comments Hospital Follow-Up [facility] D/C 08/15 0 Hospital Follow-Up 08/28/2022 Encounter Details Date Type Department Care Team Description 08/28/2022 Office Visit Family [facility] [address] [address] Roger Alexandra MD [address] [address] Hospital discharge follow-up*; Chronic hypoxemic respiratory failure (HCC); Decreased functional mobility; Super obese; Depression with anxiety; PTSD (post-traumatic stress disorder); History of multiple strokes; Chronic diastolic CHF (congestive heart failure) (HCC); Paroxysmal atrial fibrillation (HCC); Acquired hypothyroidism; COPD, group D, by GOLD 2017 classification (HCC); Obstructive sleep apnea; Need for influenza vaccination; Globus sensation; Encounter for screening mammogram for breast cancer Allergies Active Allergy Reactions Severity Noted Date [...] clinic. 90 Tablet 3 2 Active Nystatin 557354 UNIT/GM External Powder ([facility]) apply to affected area twice a day [...] 0 Active Baclofen 10 MG Oral Tablet (Lioresal)Indicati [...] severe pain 90 Tablet 0 2 Active Disposable Brief X-LargeIndications :Overactive bladder Attends X-Large Super Absorb Underwear 32 Each 2 1 09/08/20 22 Discontinued(Ref ill) Vitamin D (Cholecalciferol) 25 MCG (1000 UT) Oral Capsule Take 1 Cap by mouth daily. 30 Cap 5 1 09/07/20 22 Discontinued(Pat ient preference/disco ntinuation) ProAir HFA 108 (90 Base) MCG/ACT Inhalation Aerosol SolutionIndication s:Bronchitis, complicated Inhale by mouth 2 Puffs 4 times a day . 18 g 1 2 09/15/20 22 Discontinued(Ref ill) Trelegy Ellipta 100-62.5-25 MCG/INH Aerosol Powder Breath Activated (fluticasone-umecl idinium-vilanterol )Indications:COPD, group D, by GOLD 2017 classification ([facility]) Inhale by mouth 1 Puff in the morning. 60 Blister Dosing Unit 3 2 09/16/20 22 Discontinued predniSONE 20 MG Oral Tablet (Deltasone) Take by mouth 2 Tablets in the morning. 6 day course. 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 Chief Complaint Patient presents with Hospital Follow-Up [facility] D/C 08/24 Hospital Follow-Up Recent Admission: Patient was recently admitted to [facility]. The date of discharge was 08/24/22. Discharge report received and reviewed. HPI: This is a medically complex 62 year old super obese female with multiple medical comorbiditieswho is here today for a hospital follow up. She was sent to the ER from her pulmonology outpatient visit due to worsening SOB and acute COPD exacerbation. While hospitalized, she was eventually stabilized and able to be discharged on her baseline oxygen requirement. She is undergoing home PT and doi ng relatively well. She has very limited mobility and spends almost all of her time in a chair or wheelchair. Patient Active Problem List Diagnosis Code Irritable bowel syndrome with diarrhea K58.0 Depression with anxiety F41.8 Obstructive sleep apnea G47.33 Von Willebrand disease D68.00 Idiopathic cardiomyopathy (HCC) I42.9 Acquired hypothyroidism E03.9 Super obese E66.9 Chronic bilateral low back pain without sciatica M54.50, G89.29 Paroxysmal atrial fibrillation ([facility]) I48.0 Drug-seeking behavior Z76.5 History of multiple strokes Z86.73 Chronic diastolic CHF (congestive heart failure) ([facility]) I50.32 PTSD (post-traumatic stress disorder) F43.10 COPD, group D, by GOLD 2017 classification ([facility]) J44.9 Chronic hypoxemic respiratory failure ([facility]) J96.11 History of narcotic addiction ([facility]) F11.21 Decreased functional mobility R26.89 Current Outpatient Medications Medication Sig Dispense Refill Disposable Brief X-Large Attends X-Large Super Absorb Underwear 32 Each 2 Vitamin D (Cholecalciferol) 25 MCG (1000 UT) Oral Capsule Take 1 Cap by mouth daily. 30 Cap 5 ProAir HFA 108 (90 Base) MCG/ACT Inhalation Aerosol Solution Inhale by mouth 2 Puffs 4 times a day . 18 g 1 Furosemide 20 MG Oral Tablet (Lasix) Take by mouth 1 Tablet daily as needed (lower leg swelling). 30 Tablet 11 Trelegy Ellipta 100-62.5-25 MCG/INH Aerosol Powder Breath Activated (xnainokwqoy-xdgioebasxbz-iowmceragp) Inhale by mouth 1 Puff in the morning. 60 Blister Dosing Unit 3 Warfarin Sodium 5 MG Oral Tablet (Coumadin) Take by mouth 1 Tablet in the evening. OR As directed by coumadin clinic. 90 Tablet 3 Nystatin 932181 UNIT/GM External Powder (Nyamy) apply to affected [...] inthe morning AND 600 mg before bedtime. predniSONE 20 MG Oral Tablet (Deltasone) Take by mouth 2 Tablets in the morning. 6 day course. hydrOXYzine HCl 25 MG Oral Tablet Take [...] pain to severe pain 90 Tablet 0 Current Facility-Administered Medications Medication Dose Route Frequency Provider Last Rate Last Admin Albuterol Sulfate (Proventil) (2.5 MG/3ML) 0.083% inhalation solution 2.5 mg 2.5 mg Nebulizer PRN Jesus Bonilla MD Albuterol Sulfate (Proventil) (5 MG/ML) 0.5% *conc* inhalation solution 2.5 mg 2.5 mg NebulizerPRN Jesus Bonilla MD 2.5 mg at 05/07/22 1507 Current and discharge medications have been reconciled. Review of patient's allergies indicates: Allergen Reactions Aspirin Unknown von Willebrand's disease Salicylates von Willebrand's disease OBJECTIVE: BP 110/70 | Pulse 104 | Temp 37.1 C (98.7 F) (Tympanic) | Ht 1.588 m (5' 2.5") | Wt 132 kg (291lb) | SpO2 94% | BMI 52.38 kg/m | BSA 2.41 m PHYSICAL EXAM: Gen: super obese female sitting in wheelchair comfortably; wearing O2 Lungs: bilateral wheezes; no rales or egophony Heart: rrr, no mrg Skin: no open sores Ext: bilateral lymphedema ASSESSMENT: Hospital discharge follow-up (Primary) - DISCH MED RECON CUR MED LIS Chronic hypoxemic respiratory failure (HCC) Decreased functional mobility - DURABLE MEDICAL EQUIPMENT - DURABLE MEDICAL EQUIPMENT -patient is severely limited in her mobility and would benefit from both a lift wheelchair as well as a semi-electric hospital bed. This would help her facilitate transfers much more easily and help her be more independent. She should continue PT Patient has a medical condition that requires positioning of the body in ways not feasible with an ordinary bed. She requires frequent changes in body position. Super obese Depression with anxiety PTSD (post-traumatic stress disorder) History of multiple strokes Chronic diastolic CHF (congestive heart failure) (HCC) Paroxysmal atrial fibrillation (HCC) Acquired hypothyroidism COPD, group D, by GOLD 2017 classification (HCC) Obstructive sleep apnea Need for influenza vaccination - INFLUENZA VACC, QUAD, PF, 6 MONTHS & UP, 0.5 ML, IM Globus sensation - GASTROENTEROLOGY REFERRAL OP Encounter for screening mammogram for breast cancer - MAMMOGRAM SCREENING BILATERAL; Future; Expected date: 08/28/2022 Follow Up: Return in about 6 months (around 02/26/2023). PLAN: Continue present medication(s): Follow up in 6 month(s). Roger Alexandra MD documented in this encounter Nursing Notes * Myesha Dhillon CMA - 08/28/2022 10:58 AM EDT The patient has been properly identified by confirmation of name and date of . Chief Complaint Patient presents with Hospital Follow-Up [facility] D/C 08/24 Patient here for f/u hosp D/C documented in this encounter Plan of Treatment Upcoming Encounters Date Type Specialty Care Team Description 09/23/2022 Anticoagulation Pharmacy Telepharmacy, [facility] [address] [place] [address] 10/12/2022 Telemedicine Psychiatry Hugo Alcantara MD [address] [place] [address] 11/18/2022 Therapy Psychiatry Rogre Drake, PhD [address] [place] [address] 12/02/2022 Office Visit Pulmonary Jesus Bonilla MD [address] [place] [address] 01/13/2023 Procedure Only Endoscopy Shaneka Santiago MD [address] [facility] [address] [place] [address] 03/17/2023 PulmDiagnostic Pulmonary Function [place], [facility] [address] [facility] [place] [place] [address] Scheduled Referrals Name Type Priority Associated Diagnoses Order Schedule GASTROENTEROLOGY REFERRAL OP Referral Within 30 days (routine) Globus sensation Ordered: 08/28/2022 Health Maintenance Due Date Last Done Comments [...] 03/20/2009 LUNG CANCER SCREENING - USE SMARTSET 91953 Completed 03/16/2022 Influenza Vaccine (FLU shot) Completed , 11/11/2021, 11/11/2021, Additional history exists GARDASIL-HPV IMMUNIZATION SERIES Aged Out No longer eligible based on patient's age to complete this topic MENINGOCOCCAL (MENACTRA/MENVEO) Aged Out No longer eligible based on patient's age to complete this topic documented as of this encounter Medical Devices Not on filedocumented as of this encounter Results * MAMMOGRAM SCREENING BILATERAL (09/04/2022 11:27 AM EDT) Anatomical Region Laterality Modality Breast Bilateral Mammography Narrative 09/07/2022 5:07 PM EDT Result MAMMOGRAM SCREENING BILATERAL History Encounter for screening mammogram for breast cancer The patient has no documented relevant family history. Films Compared 10/28/2015 MAMMOGRAM, DIAGNOSTIC, BILAT, 04/27/2014 MAMMOGRAM, SCREENING, BILAT, 05/12/2013 MAMMOGRAM, DIAGNOSTIC, BILAT, and 01/02/2011 MAMMOGRAM, SCREENING, BILAT Findings The breasts have scattered areas of fibroglandular density. There is no evidence of suspicious masses, calcifications, or other abnormal findings. Impression Bilateral No mammographic evidence of malignancy. BI-RADS Category: 1 - Negative. Recommendation Screening mammogram in 1 year is recommended for both breasts. This digital mammogram has been analyzed with the computer aided detection system. This notice contains the results of your recent mammogram, including information about breast density. If your mammogram shows that your breast tissue is dense, you should know that dense breast tissue is a common finding and is not abnormal. Statistics show many women could have dense or highly dense breasts. Dense breast tissue can make it harder to find cancer on a mammogram and may be associated with an increased risk of cancer. This information about the result of your mammogram is given to you to raise your awareness and to inform your conversations with your physician. Together, you can decide which screening options are right for you, based on your mammogram results, individual risk factors or physical examination. A report of your results was sent to your physician. Your mammographic breast density on today's study is described above. There are four categories of breast density on mammography. Fatty breasts and those with scattered fibroglandular tissue are not considered dense. Heterogeneously dense or extremely dense tissue is considered "dense". Please understand that assessment of breast density may vary from year to year. This examination was performed at [facility], [address] [place] [address]. Roger Alexandra MD RAD MAMMOGRAPHY documented in this encounter Visit Diagnoses Diagnosis Hospital discharge follow-up- Primary Other follow-up examination Chronic hypoxemic respiratory failure (HCC) Chronic respiratory failure Decreased functional mobility Other symptoms involving nervous and musculoskeletal systems Super obese Morbid obesity Depression with anxiety Dysthymic disorder PTSD (post-traumatic stress disorder) Posttraumatic stress disorder History of multiple strokes Chronic diastolic CHF (congestive heart failure) (HCC) Chronic diastolic heart failure Paroxysmal atrial fibrillation (HCC) Atrial fibrillation Acquired hypothyroidism Unspecified hypothyroidism COPD, group D, by GOLD 2017 classification (HCC) Obstructive sleep apnea Obstructive sleep apnea (adult) (pediatric) Need for influenza vaccination Need for prophylactic vaccination and inoculation against influenza Globus sensation Gastrointestinal malfunction arising from mental factors Encounter for screening mammogram for breast cancer Encounter for screening mammogram for breast cancer documented in this encounter Care Teams Buffing And Polishing Wheel Repairer Relationship Specialty Start Date End Date Roger Alexandra MD [address] [address] PCP - General Family Medicine 12/29/19 documented as of this encounter
--- OUTSIDE RECORDS SUMMARY | 2023-07-25 04:29 | External Medical Summary | Summary of Care ---
Author Name Unknown Organization [facility] Address [place] [address] Care Team Providers Care Methods Specialist Engineer Name Role Phone Roger Alexandra MD Primary Care Provider [phone] Reason for Visit * Reason Onset Date Comments Returning Call 09/18/2022 Encounter Details Date Type Department Care Team Description 09/18/2022 Telephone Pharmacy Call Center [address] [facility] [address] [address] [facility] [address] [facility] [address] Returning Call Allergies Active Allergy Reactions Severity Noted Date [...] clinic. 90 Tablet 3 02/16/2022 Active Nystatin 035531 UNIT/GM External Powder (Nyamyc) apply to affected [...] bedtime. 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:TIN POURER D, group D, by GOLD 2017 classification ([facility]),Chronic hypoxemic respiratory failure (HCC) Use with nebulized meds 1 Each 0 09/16/2022 Active Full Kit Nebulizer SetIndications:COPD, group D, by GOLD 2017 classification ([facility]),Chronic hypoxemic respiratory failure (HCC) Use with nebulizer 1 Each 0 09/16/2022 Active Hospital, Clinic, or Other Facility Administered Medication Ordered Dose Route Frequency Start Date End Date Status Albuterol Sulfate (Proventil) (2.5 MG/3ML) 0.083% inhalation solution 2.5 mgIndications:Chronic hypoxemic respiratory failure (HCC),COPD, group D, by GOLD 2017 classification ([facility]) 2.5 mg NEBULIZER PRN 03/10/2022 03/10/2023 Acti ve Albuterol Sulfate (Proventil) (5 MG/ML) 0.5% *conc* inhalation solution 2.5 mgIndications:Chronic hypoxemic respiratory failure (HCC),COPD, group D, by GOLD 2017 classification ([facility]) 2.5 mg NEBULIZER PRN 03/10/2022 [...] Encounter - Kim Mercado RPh - 09/18/2022 2:42 PM EDT 09/18/2022 02:42 PM Phone (Outgoing) Kimberly Kendall (Self) [phone] (M) Remove Spoke to Patient By Kim Mercado RP Reviewed previous note regarding nosebleed. Kim Mercado Rph, Pharm.D. Clinical Pharmacist Telepharmacy [phone] 09/18/2022,2:53 PM Electronically signed by Kim Mercado [facility], located within [facility] at 09/18/2022 2:54 PM EDT * Telephone Encounter - Mali Olivares MA - 09/18/2022 12:29 PM EDT Caller's name: patient Preferred call back number: [phone] Reason for call: patient requesting a call back from Mehnaz, states she could not understand the voicemail she left, I tried to go over everything with the patient but she would not listen, wants to speak with Mehnaz, thank you. Mali Olivares MA Doctor Of Nursing Practice [employer] [facility] documented in this encounter Plan of Treatment Upcoming Encounters Date Type Specialty Care Team Description 09/22/2022 Laboratory Laboratory Processing [facility], [facility] [address] [place] [address] 09/23/2022 [facility] [address] [place] [address] 10/12/2022 Telemedicine Psychiatry Hugo Alcantara MD [address] [place] [address] 11/18/2022 Therapy Psychiatry Roger Drake, PhD [address] [place] [address] 12/02/2022 Office Visit Pulmonary Jesus Bonilla MD [address] [facility] [place] [address] 01/13/2023 Procedure Only Endoscopy Shaneka Santiago MD [address] [facility] [place] [address] 03/17/2023 PulmDiagnostic Pulmonary Function [place], [facility] [address] [place] [address] Health Maintenance Due Date Last Done Comments [...] exists LUNG CANCER SCREENING - USE SMARTSET 60023 Completed 03/16/2022 Influenza Vaccine (FLU shot) Completed [...] Documents on File Type Date Recorded Patient Weight And Balance Control Agent Expl 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 Advanced Directive 11/02/2011 12:00 AM Care Teams Methods Specialist Engineer Relationship Specialty Start Date End Date Roger Alexandra MD [address] [place] [address] [place] [address] PCP - General Family Medicine 12/29/19 documented as of this encounter
--- OUTSIDE RECORDS SUMMARY | 2023-07-25 04:29 | External Medical Summary | Summary of Care ---
Author Name Unknown Organization [place] [address] Care Team Providers Care Laboratory Clerk Name Role Phone Roger Alexandra MD Primary Care Provider [phone] Reason for Visit * Reason Onset Date Comments Advice 09/15/2022 Encounter Details Date Type Department Care Team Description 09/15/2022 Telephone Family Practice [facility] [address] [place] [address] Roger Alexandra MD [address] [facility] [place] [address] Advice Allergies Active Allergy Reactions Severity Noted [...] clinic. 90 Tablet 3 02/16/2022 Active Nystatin 249511 UNIT/GM External Powder (Nyamyc) apply to affected area twice a day 15 g 1 05/19/2022 Active oxygen IN GASIndications:Chron ic hypoxemic respiratory failure (HCC),COPD, group D, by GOLD 2017 classification ([facility]) Use 2 LPM at rest, [...] during phone call. 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 Please advise. Can fax orders to [facility] home health, fax # [phone] documented in this encounter Plan of Treatment Upcoming Encounters Date Type Specialty Care Team Description 09/16/2022 Office Visit Pulmonary Jesus Bonilla MD [address] [place] [id number] 09/22/2022 Laboratory Laboratory Processing [facility], [facility] Mobile Home Draw [address] [place] [address] 09/23/2022 [facility] [address] [place] [address] 10/12/2022 Telemedicine Psychiatry Hugo Alcantara MD [address] [place] [address] 11/18/2022 Therapy Psychiatry Roger Drake, PhD [address] [place] [address] 12/02/2022 Office Visit Pulmonary Jesus Bonilla MD [address] [id number] 01/13/2023 Procedure Only Endoscopy Shaneka Santiago MD [address] [address] Health Maintenance Due Date Last Done Comments [...] exists LUNG CANCER SCREENING - USE SMARTSET 97538 Completed 03/16/2022 Influenza Vaccine (FLU shot) Completed [...] Documents on File Type Date Recorded Patient Associate Veterinarian Expl 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 Advanced Directive 11/02/2011 12:00 AM Care Teams Laboratory Clerk Relationship Specialty Start Date End Date Roger Alexandra MD [address] [facility] [place] [address] PCP - General Family Medicine 12/29/19 documented as of this encounter
--- OUTSIDE RECORDS SUMMARY | 2023-07-25 04:29 | External Medical Summary ---
Author Name Unknown Address Unknown Organization K0G[facility] [address] [place] [address] Laboratory Report Ordering Provider Test Date Status SUMAN STANFORD 09/22/2022 11:04:00 Final Observation Date Value Abnormality Reference (Units ) Status PT 09/22/2022 11:04:00 25.9 Above high normal 11 .6-15.2 (seconds) Final INR 09/22/2022 11:04:00 2.3 Above high normal 0. 8-1.2 Final Performing Location [facility] [place] [address] [place] [address]
--- OUTSIDE RECORDS SUMMARY | 2023-07-25 04:30 | External Medical Summary | Summary of Care ---
Author Name Unknown Organization [facility] Address [place] [address] Care Team Providers Care Business Objects Report Developer Name Role Phone Roger Alexandra MD Primary Care Provider [phone] Reason for Visit * Reason Onset Date Comments case management 09/11/2022 Encounter Details Date Type Department Care Team Description 09/11/2022 Business Services Officer Telephone [facility] Valerie Guerra [address] [address] Tess Bright, RN [address] [address] case management Allergies Active Allergy Reactions Severity Noted Date Comments Aspirin Unknown 12/12/2007 von Willebrand's disease Salicylates 03/01/2000 von Willebrand's disease documented as of this encounter (statuses as of 09/11/2022) Medications Medication Sig Dispensed Refills Start Date End Date Status ProAir HFA 108 (90 Base) MCG/ACT Inhalation Aerosol SolutionIndications :Bronchitis, complicated Inhale by mouth 2 Puffs 4 times a day . 18 g 1 01/23/2022 Active Furosemide 20 MG Oral Tablet (Lasix) Take by mouth 1 Tablet daily as needed (lower leg swelling). 30 Tablet 11 01/23/2022 Active Trelegy Ellipta 100-62.5-25 MCG/INH Aerosol Powder Breath Activated (fluticasone-umecli dinium-vilanterol)I ndications:COPD, group D, by GOLD 2017 classification ([facility]) Inhale by mouth 1 Puff in the morning. 60 Blister Dosing Unit 3 02/13/2022 Active Warfarin Sodium 5 MG Oral Tablet (Coumadin)Indicatio ns:Paroxysmal atrial fibrillation (HCC) Take by mouth 1 Tablet in the evening. OR As directed by coumadin clinic. 90 Tablet 3 02/16/2022 Active Nystatin 980351 UNIT/GM External Powder (Nyamyc) apply to affected area twice a day 15 g 1 05/19/2022 Active oxygen IN GASIndications:Reservation Sales Agent 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 respiratory failure (HCC),COPD, group D, by GOLD 2017 classification ([facility]) Use 2 LPM at rest, [...] Absorb Underwear 32 Each 2 09/08/2022 Active predniSONE 20 MG Oral Tablet (Deltasone) Take by mouth 2 Tablets in the morning. 6 day course. 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 new medications on discharge mucinex Q12hr, prednisone x6 days and hydroxazine prn. [facility] home health to provide home health. PCP follow up 08/28/22. S: Reports: She relates that she feels a bit nervous. Her breathing is still not back at her baseline. She is wearing her oxygen at 4 lit/min Notices shortness of breath is worse with activity. Weight gain: Reports weight at 286 lbs- lost 2-3 lbs Increased edema: Reports chronic edema in her legs - takes furosemide. Chest pain Denies Increased shortness of breath: With exertion; denies cough. Wearing oxygen. Using inhalers Chills / Sweats / Fever: denies chills/sweats and denies fever Fall: denies any falls since last Care Management encounter assistive device:walker Appetite: Reports good appetite denies nausea, vomiting, burning, decreased appetite Bowel: denies problems Bladder: reports good urinary response - has chronic incontience; denies dysuria and incontinent Medications: takes all medications as prescribed. Chronic Pain: Denies O: Phone visit for case management follow up A Alert and oriented x 3 - anxious P: Reviewed relaxation/anxiety medications to use. Discussed deep breathing techniques. Encouraged use of IS to help strengthen lungs. Monitor and report the following symptoms for worsening of COPD: increased shortness of breath, wheezing, increased cough, chest tightness, fever or chills, increased sputum with change in color and consistency, increased fatigue, decrease in appetite. Encouraged paced activities, frequent rest periods, pursed lip breathing. Follow up in 1-2 weeks Tess Bright RN Outpatient Business Services Officer [phone] documented in this encounter Plan of Treatment Upcoming Encounters Date Type Specialty Care Team Description 09/22/2022 Laboratory Laboratory Processing [facility] Mobile Home Draw [address] [place] [address] 09/23/2022 [facility] [address] [place] [address] 10/12/2022 Telemedicine Psychiatry Hugo Alcantara MD [address] [place] [address] 12/02/2022 Office Visit Pulmonary [facility] Bonilla [facility] [address] [facility] [place] [address] 01/13/2023 Procedure Only Endoscopy Shaneka Santiago MD 132 [facility] [place] [address] Health Maintenance Due Date Last Done [...] exists LUNG CANCER SCREENING - USE SMARTSET [id number] Completed 03/16/2022 Influenza Vaccine (FLU shot) Completed [...] Documents on File Type Date Recorded Patient Brand Ambassador Promotional Model Expl 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 Advanced Directive 11/02/2011 12:00 AM Care Teams Business Objects Report Developer Relationship Specialty Start Date End Date Roger Alexandra MD 132 [facility] [place] [id number] PCP - General Family Medicine 12/29/19 documented as of this encounter
--- OUTSIDE RECORDS SUMMARY | 2023-07-25 04:30 | External Medical Summary | Summary of Care ---
Author Name Unknown Organization [place] [address] Care Team Providers Care Coo Name Role Phone Roger Alexandra MD Primary Care Provider [phone] Reason for Visit * Reason Comments case management Encounter Details Date Type Department Care Team Description 09/15/2022 Orthopedically Impaired TeacherSpeed Belt S[address] [place] [address] Yara Morris, RN [...] clinic. 90 Tablet 3 02/16/2022 Active Nystatin 671220 UNIT/GM External Powder (Nyamyc) apply to affected area twice a day 15 g 1 05/19/2022 Active oxygen IN GASIndications:Admitted Attorneys 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 respiratory failure (HCC),COPD, group D, [...] Progress Notes * Yara Morris RN - 09/15/2022 10:50 AM EDT Received a VM from MICHELLE Ordaz at [facility] # [phone] reporting that patient was feeling anxious and wheezy. See other encounter from today. Message sent to pulmonology. Refill request sent to PCP. documented in this encounter Plan of Treatment Upcoming Encounters Date Type Specialty Care Team Description 09/16/2022 Office Visit Pulmonary Jesus Bonilla MD [address] [facility] [place] [address] 09/22/2022 Laboratory Laboratory Processing [facility], [facility] Mobile Home Draw [address] [place] [facility] [place] [address] 09/23/2022 [facility] [address] [facility] [place] [address] 10/12/2022 Telemedicine Psychiatry Hugo Alcantara MD [address] [place] [address] 11/18/2022 Therapy Psychiatry Roger Drake, PhD 200 [place] [address] 12/02/2022 Office Visit Pulmonary [facility] [address] [facility] [address] 01/13/2023 Procedure Only Endoscopy [facility] [address] Health Maintenance Due Date Last Done [...] exists LUNG CANCER SCREENING - USE SMARTSET 229[address] Completed 03/16/2022 Influenza Vaccine (FLU shot) Completed [...] Other specified examination documented in this encounter Advance Directives Documents on File Type Date Recorded Patient Clinical Academic Allergist Expl 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 Advanced Directive 11/02/2011 12:00 AM Care Teams Coo Relationship Specialty Start Date End Date Roger Alexandra MD [address] [place] [address] PCP - General Family Medicine 12/29/19 documented as of this encounter
--- OUTSIDE RECORDS SUMMARY | 2023-07-25 04:30 | External Medical Summary | Summary of Care ---
Author Name Unknown Organization [place] [address] Care Team Providers Care Table Setter Name Role Phone Roger Alexandra MD Primary Care Provider [phone] Reason for Visit * Reason Onset Date Comments Encounter Created in Error 09/11/2022 Encounter Details Date Type Department Care Team Description 09/11/[address] [facility] 132 [facility] [place] [address] Roger Alexandra MD 132 [facility] [place] [address] Encounter Created in Error Allergies Active Allergy [...] ications:COPD, group D, by GOLD 2017 classification ([facility]) Inhale by mouth 1 Puff in the morning. 60 Blister Dosing Unit 3 02/13/2022 Active Warfarin Sodium 5 MG Oral Tablet (Coumadin)Indication s:Paroxysmal atrial fibrillation (HCC) Take by mouth 1 Tablet in the evening. OR As directed by coumadin clinic. 90 Tablet 3 02/16/2022 Active Nystatin 369573 UNIT/GM External Powder (Nyamyc) apply to affected [...] AND 600 mg before bedtime. 0 Active predniSONE 20 MG Oral Tablet (Deltasone) Take by mouth 2 Tablets in the morning. 6 day course. 0 Active hydrOXYzine HCl 25 MG Oral [...] Laboratory Processing [facility] Mobile Home Draw [address] [place] [address] 09/23/2022 [facility] [address] [place] [address] 10/12/2022 Telemedicine Psychiatry Hugo Alcantara MD [address] [place] [address] 12/02/2022 Office Visit Pulmonary Jesus Bonilla MD [address] [facility] [address] 01/13/2023 Procedure Only Endoscopy [facility]ka [facility] MD [address] [facility] [place] [address] Health Maintenance Due Date Last Done Comments [...] exists LUNG CANCER SCREENING - USE SMARTSET 36005 Completed 03/16/2022 Influenza Vaccine (FLU shot) Completed [...] Documents on File Type Date Recorded Patient Systems Project Manager Expl 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 Advanced Directive 11/02/2011 12:00 AM Care Teams Table Setter Relationship Specialty Start Date End Date Roger Alexandra MD [address] [place] [address] [place] [address] PCP - General Family Medicine 12/29/19 documented as of this encounter
--- OUTSIDE RECORDS SUMMARY | 2023-07-25 04:30 | External Medical Summary | Summary of Care ---
Author Name Unknown Organization [place] [address] Care Team Providers Care Lawn Care Professional Name Role Phone Roger Alexandra MD Primary Care Provider [phone] Reason for Visit * Reason Comments case management Encounter Details Date Type Department Care Team Description 09/14/2022 Day Care Home ProviderSite Safety Coordinator [address] [place] [address] Yara Morris, RN Medical home patient encounter*; COPD, group D, by GOLD 2017 classification ([facility]) Allergies Active Allergy Reactions Severity Noted Date Comments Aspirin Unknown 12/12/2007 von Willebrand's disease Salicylates 03/01/2000 von Willebrand's disease documented as of this encounter (statuses as of 09/14/2022) Medications Medication Sig Dispensed Refills Start Date [...] ications:COPD, group D, by GOLD 2017 classification ([facility]) Inhale by mouth 1 Puff in the morning. 60 Blister Dosing Unit 3 02/13/2022 Active Warfarin Sodium 5 MG Oral Tablet (Coumadin)Indication s:Paroxysmal atrial fibrillation (HCC) Take by mouth 1 Tablet in the evening. OR As directed by coumadin clinic. 90 Tablet 3 02/16/2022 Active Nystatin 987533 UNIT/GM External Powder (Nyamyc) apply to affected [...] as of this encounter (statuses as of 09/14/2022) Active Problems Problem Noted Date Decreased functional [...] as of this encounter (statuses as of 09/14/2022) Resolved Problems Problem Noted Date Resolved Date [...] as of this encounter (statuses as of 09/14/2022) Immunizations Name Administration Dates Next Due H1N1 [...] Progress Notes * Yara Morris RN - 09/14/2022 3:35 PM EDT Day Care Home Provider Progress Note: Date: 09/14/22 Current Patient Tier: 2 Assessment: Case Management Assessment Is this call for a hospital, group home or rehab facility discharge to home? Yes [facility] 08/20 - 08/24 COPD exacerbation Review of Current goals: Connected with patient via Phone. Pt. Noted the following: Ongoing dyspnea with exertion. She is wearing )@ @ 4L NC continuous. She checks oxygen saturation throughout the day and levels are usually >90's at rest, was 89% with activity today, but came up to 97% with rest. Denies any new or worsening swelling. Wheezes occur with activity. Patient sounds anxious on the phone. She "just cant get comfortable". Inquiring about hospital bed order. This was placed at her office visit. She is currently requiring several pillows under her head to sleep at night. She used to have a nebulizer but is unsure where this is. She does not recall what DME provided this in the past. She was told to hold co umadin as INR was 5.2, she resumed this today. Taking a shower wears her out. She is doing leg exercises as tolerated. Instructed to pace activities as tolerated. Discussed the following patient-centered CM goals with the patient during this discussion: -Activity: Patient will increase activity or maintain level as tolerated -Status: On Track patient is doing exercises as able/tolerated. -Durable Medical Equipment (DME): Patient will have DME in place and adhere to use -Status: On Track hospital bed orderd, awaiting outcome. -RESPIRATORY: Patient/caregiver will monitor for exacerbation of respiratory condition and treat accordingly -Status: On Track Patient aware to monitor for oxygen levels <90% using oxygen as ordered. Plan for Future Contacts: Plan to follow up later this week to check progress on the following goals/needs respiratory status. Noting that contacts from the following parties will occur this week: [facility] Pharmacy and IVR as additional contacts per workflow. Advancement/Closure Plan: CM Plan : Keep patient at current Tier with reassessment per workflow. Patient provided CM contact information and encouraged to call with any changes in condition. Reviewed red flag symptoms to monitor and report: wheezing/cough, Increased swelling and oxygen levels <90%. SNP Member? No Does this patient qualify for an annual wellness visit? No PCP Notified of enrollment in CM/HM program: Yes Is Provider in agreement with POC? Yes Yara Morris RN Outpatient Case Management documented in this encounter Plan of Treatment Upcoming Encounters Date Type Specialty Care Team Description 09/22/2022 Laboratory Laboratory Processing [facility] Mobile Home Draw [address] [place] [address] 09/23/2022 [facility] [address] [place] [address] 10/12/2022 Telemedicine Psychiatry Hugo Alcantara MD [address] [place] [address] 11/18/2022 Therapy Psychiatry Roger Drake, PhD [address] [place] [address] 12/02/2022 Office Visit Pulmonary Jesus Bonilla MD [address] [place] [address] 01/13/2023 Procedure Only Endoscopy Shaneka Santiago MD [address] [place] [address] Health Maintenance Due Date Last Done Comments [...] exists LUNG CANCER SCREENING - USE SMARTSET [id number] Completed 03/16/2022 Influenza Vaccine (FLU shot) Completed [...] home patient encounter- Primary Other specified examination COPD, group D, by GOLD 2017 classification (HCC) documented in this encounter Advance Directives Documents on File Type Date Recorded Patient Valve Repairer Reclamation Expl 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 Advanced Directive 11/02/2011 12:00 AM Care Teams Lawn Care Professional Relationship Specialty Start Date End Date Roger Alexandra MD 132 [facility] [place] [id number] PCP - General Family Medicine 12/29/19 documented as of this encounter
--- OUTSIDE RECORDS SUMMARY | 2023-07-25 04:30 | External Medical Summary | Summary of Care ---
Author Name Unknown Organization [place] [address] Care Team Providers Care Cargo Router Name Role Phone Roger Alexandra MD Primary Care Provider [phone] Reason for Visit * Reason Onset Date Comments Advice 09/11/2022 Warfarin Encounter Details Date Type Department Care Team Description 09/11/2022 Telephone Gastroenterology, [facility] [address] [place] [address] Shaneka Santiago MD 132 [facility] [place] [address] Advice (Warfarin) Allergies Active Allergy Reactions Severity Noted Date [...] ications:COPD, group D, by GOLD 2017 classification ([facility]) Inhale by mouth 1 Puff in the morning. 60 Blister Dosing Unit 3 02/13/2022 Active Warfarin Sodium 5 MG Oral Tablet (Coumadin)Indication s:Paroxysmal atrial fibrillation (HCC) Take by mouth 1 Tablet in the evening. OR As directed by coumadin clinic. 90 Tablet 3 02/16/2022 Active Nystatin 398792 UNIT/GM External Powder (Nyamyc) apply to affected area twice a day 15 g 1 05/19/2022 Active oxygen IN GASIndications:Chron ic hypoxemic respiratory failure (HCC),COPD, group D, by GOLD 2017 classification (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 [facility] to follow-up with instructions regarding warfarin once procedure gets closer. Thanks, Fabienne TrimbleD Clinical Pharmacist 09/11/2022 11:12 AM * Telephone Encounter - RUFINA Davalos - 09/11/2022 11:01 AM EDT Patient is scheduled for a colonoscopy 01/13/[address] Shaneka Santiago. Please call patient directly with Warfarin instructions. Thank you documented in this encounter Plan of Treatment Upcoming Encounters Date Type Specialty Care Team Description 09/22/2022 Laboratory Laboratory Processing [facility] Mobile Home Draw [address] [place] [address] 09/23/2022 [facility] [address] [place] [address] 10/12/2022 Telemedicine Psychiatry Hugo Alcantara MD [address] [place] [address] 12/02/2022 Office Visit Pulmonary [facility] [address] [facility] [address] 01/13/2023 Procedure Only Endoscopy [facility] [address] Health Maintenance Due Date Last [...] FOR COPD 09/07/2023 09/07/2022 Mammogram 09/04/2024 09/04/2022, 1202/2015, 04/27/2014, Additional history exists Diabetes Screening 01/15/2025 01/15/2022, 0 01/08/2022, 01/03/2022, Additional history exists COLONOSCOPY-EVERY 5 YRS AGES 18-100 11/12/2025 11/12/2020, 05/22/2013, 08/21/2011, Additional history exists LUNG CANCER SCREENING - USE SMARTSET 74240 Completed 03/16/2022 Influenza Vaccine (FLU shot) Completed [...] Documents on File Type Date Recorded Patient Steel Analyst Expl 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 Advanced Directive 11/02/2011 12:00 AM Care Teams Cargo Router Relationship Specialty Start Date End Date Roger Alexandra MD [address] [place] [address] PCP - General Family Medicine 12/29/19 documented as of this encounter
--- OUTSIDE RECORDS SUMMARY | 2023-07-25 04:30 | External Medical Summary | Summary of Care ---
Author Name Unknown Organization [place] [address] Care Team Providers Care Signaler Name Role Phone Jeevan Mclean MD Primary Care Provider [phone] [phone] Reason for Visit * Reason Onset Date Comments Medication Refill 09/08/2022 Encounter Details Date Type Department Care Team Description 09/08/2022 Refill Family Practice [facility] [address] [facility] [place] [address] Jeevan Mclean MD [address] [facility] [place] [address] Overactive bladder Allergies Active Allergy Reactions Severity Noted Date Comments Aspirin Unknown 12/12/2007 von Willebrand's disease Salicylates 03/01/2000 von Willebrand's disease documented as of this encounter (statuses as of 09/08/2022) Medications Medication Sig Dispensed Refills Start Date [...] ndications:COPD, group D, by GOLD 2017 classification ([facility]) Inhale by mouth 1 Puff in the morning. 60 Blister Dosing Unit 3 02/13/2022 Active Warfarin Sodium 5 MG Oral Tablet (Coumadin)Indicatio ns:Paroxysmal atrial fibrillation (HCC) Take by mouth 1 Tablet in the evening. OR As directed by coumadin clinic. 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 Educator 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 respiratory failure (HCC),COPD, group D, by GOLD 2017 classification ([facility]) Use 2 LPM at rest, 4 LPM [...] Absorb Underwear 32 Each 2 09/08/2022 Active Disposable Brief X-LargeIndications: Overactive bladder Attends X-Large Super Absorb Underwear 32 Each 2 03/18/2021 2 Discontinue d(Refill) Hospital, Clinic, or Other [...] as of this encounter (statuses as of 09/08/2022) Active Problems Problem Noted Date Decreased functional [...] as of this encounter (statuses as of 09/08/2022) Resolved Problems Problem Noted Date Resolved Date [...] as of this encounter (statuses as of 09/08/2022) Immunizations Name Administration Dates Next Due H1N1 [...] Telephone Encounter - Jeevan Mclean MD - 09/08/2022 4:45 PM EDT Signed Prescriptions: Disp Refills Disposable Brief X-Large 32 Each2 Sig: Attends X-Large Super Absorb Underwear Authorizing Provider: JEEVAN MCLEAN * Telephone Encounter - Corrie Sam LPN - 09/08/2022 3:15 PM EDT Pending Prescriptions: Disp Refills Disposable Brief X-Large 32 Each2 Sig: Attends X-Large Super Absorb Underwear * Telephone Encounter - Corrie Sam LPN - 09/08/2022 3:14 PM EDT Did you pend patient's preferred pharmacy and medication before forwarding?yes Pharmacy: [facility] [id number] Pending Prescriptions: Disp Refills Disposable Brief X-Large 32 Each2 Sig: Attends X-Large Super Absorb Underwear Last Visit: 08/28/2022 (in office), 03/14/2021 (telemedicine) Next Visit: Visit date not found If no future appointments scheduled, and last appointment is greater than a year ago, please schedule patient for a follow-up appointment Last date the medication was ordered: 03/18/2021 Is this request for a controlled substance?No [...] Encounters Date Type Specialty Care Team Description 09/08/[facility] [address] [place] [address] bed bug exterminator current use 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* 09/09/2022 Office Visit Otolaryngology Jazmine Whitehead PA-C [address] [facility] [id number] 09/09/2022 Office Visit Audiology [facility] [address] [facility] [id number] 09/23/2022 [facility] [address] [place] [address] 10/12/2022 Telemedicine Psychiatry Hugo Alcantara MD [address] [place] [facility] [place] [address] 12/02/2022 Office Visit Pulmonary Jesus Bonilla MD [address] [place] [address] Scheduled Procedures Name Priority Associated Diagnoses Date/Ti me COLONOSCOPY FLEXIBLE PROXIMAL DIAGNOSTIC Recall History of colon polyps Health Maintenance Due Date Last Done [...] exists LUNG CANCER SCREENING - USE SMARTSET 57512 Completed 03/16/2022 Influenza Vaccine (FLU shot) Completed [...] as of this encounter Visit Diagnoses Diagnosis Overactive bladder Hypertonicity of bladder bed bug exterminator current use 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- Primary documented in this encounter Advance Directives Documents on File Type Date Recorded Patient Rn Stars Expl 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 Advanced Directive 11/02/2011 12:00 AM Care Teams Signaler Relationship Specialty Start Date End Date Jeevan Mclean MD [address] [facility] [place] [address] PCP - General Family Medicine 12/29/19 documented as of this encounter
--- OUTSIDE RECORDS SUMMARY | 2023-07-25 04:30 | External Medical Summary | Summary of Care ---
Author Name Unknown Organization [place] [address] Care Team Providers Care Sound Technician Name Role Phone Roger Alexandra MD Primary Care Provider [phone] [phone] Reason for Visit * Reason Onset Date Comments Advice 09/11/2022 Warfarin Encounter Details Date Type Department Care Team Description 09/11/2022 Telephone Gastroenterology, [facility] [address] [place] [address] Shaneka Santiago MD 132 [facility] [place] [address] Advice (Warfarin) Allergies Active Allergy Reactions Severity [...] ications:COPD, group D, by GOLD 2017 classification ([facility]) Inhale by mouth 1 Puff in the morning. 60 Blister Dosing Unit 3 02/13/2022 Active Warfarin Sodium 5 MG Oral Tablet (Coumadin)Indication s:Paroxysmal atrial fibrillation (HCC) Take by mouth 1 Tablet in the evening. OR As directed by coumadin clinic. 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 0 06/01/2005 [...] [facility] Mobile Home Draw [address] [place] [address] 09/23/2022 [facility] [address] [place] [address] 10/12/2022 Telemedicine Psychiatry Hugo Alcantara MD [address] [place] [address] 12/02/2022 Office Visit Pulmonary [facility]illa [facility] [address] [facility] [address] 01/13/2023 Procedure Only Endoscopy [facility] [address] Health Maintenance Due Date Last Done [...] exists LUNG CANCER SCREENING - USE SMARTSET 19661 Completed 03/16/2022 Influenza Vaccine (FLU shot) Completed [...] Documents on File Type Date Recorded Patient Casino Assistant Manager Expl 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 Advanced Directive 11/02/2011 12:00 AM Care Teams Sound Technician Relationship Specialty Start Date End Date Roger Alexandra MD [address] [place] [address] PCP - General Family Medicine 12/29/19 documented as of this encounter
--- OUTSIDE RECORDS SUMMARY | 2023-07-25 04:30 | External Medical Summary | Summary of Care ---
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 60 Blister Dosing Unit 3 02/13/2022 Active Warfarin Sodium 5 MG Oral Tablet (Coumadin)Indication s:Paroxysmal atrial fibrillation (HCC) Take by mouth 1 Tablet in the evening. OR As directed by coumadin clinic. 90 Tablet 3 02/16/2022 Active Nystatin 206672 UNIT/GM External Powder (Nyamyc) apply to affected [...] Encounters Date Type Specialty Care Team Description 09/09/2022 Office Visit Otolaryngology Jazmine Whitehead PA-C 132 [facility] [place] [address] 09/09/[address] [facility], Audiology [facility] [address] [facility] [place] [address] 09/22/2022 Laboratory Laboratory Processing [facility], [facility] Mobile Home Draw [address] [facility] [place] [id number] 09/23/2022 [facility] [address] [facility] [place] [address] 10/12/2022 Telemedicine Psychiatry [facility]ara [facility] [address] [facility] [place] [address] 12/02/2022 Office Visit Pulmonary Jesus Bonilla MD [address] [place] [id number] Scheduled Orders Name Type Priority Associated Diagnoses Orde r Schedule PT INR Lab Routine care home (current) use of anticoagulants 12 Occurrences starting 09/08/2022 until 09/08/2023 Scheduled Procedures Name Priority Associated Diagnoses Date/Ti [...] exists LUNG CANCER SCREENING - USE SMARTSET [address] Completed 03/16/2022 Influenza Vaccine (FLU shot) Completed [...] of this encounter Visit Diagnoses Diagnosis 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
--- OUTSIDE RECORDS SUMMARY | 2023-07-25 04:30 | External Medical Summary | Summary of Care ---
Author Name Unknown Organization [place] [address] Care Team Providers Care Postmaster Name Role Phone Roger Alexandra MD Primary Care Provider [phone] [phone] Reason for Visit * Reason Comments Dosage Adjustment Via Phone (anticoag Cl inic) Encounter Details Date Type Department Care Team Description 09/08/2022 Anticoagulation Pharmacy Call Center [address] [place] [address] [facility] [address] [place] [address] sales and marketing associate current use 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* Allergies Active Allergy Reactions Severity Noted Date Comments Aspirin Unknown 12/12/2007 von Willebrand's disease Salicylates 03/01/2000 von Willebrand's disease documented as of this encounter (statuses as of 09/08/2022) Medications Medication Sig Dispensed Refills Start Date End Date Status Disposable Brief X-LargeIndications:O veractive bladder Attends X-Large Super Absorb Underwear 32 Each 2 03/18/2021 Active ProAir HFA 108 (90 Base) MCG/ACT [...] ications:COPD, group D, by GOLD 2017 classification ([facility]) Inhale by mouth 1 Puff in the morning. 60 Blister Dosing Unit 3 02/13/2022 Active Warfarin Sodium 5 MG Oral Tablet (Coumadin)Indication s:Paroxysmal atrial fibrillation (HCC) Take by mouth 1 Tablet in the evening. OR As directed by coumadin clinic. 90 Tablet 3 02/16/2022 Active Nystatin 216757 UNIT/GM External Powder (Nyamyc) apply to affected area twice a day 15 g 1 05/19/2022 Active oxygen IN GASIndications:Chron ic hypoxemic respiratory failure (HCC),COPD, group D, by GOLD 2017 classification ([facility]) Use 2 LPM at rest, [...] before bedtime. 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 PT/INR results, Coumadin dose instructions, and next PT/INR date communicated as noted by Pharmacist: Yes and MyG sent Luis Nava CPhT 09/08/2022, 3:38 PM * Kim Mercado [facility] - 09/08/2022 3:19 PM EDT Images from the original note were not included. Coumadin Clinic (region specific) Current Warfarin Dose As of 09/08/2022 Warfarin maintenance plan: 5 mg (5 mg x 1) every day INR Result As of 09/08/2022 INR goal: 2.0-3.0 INR used for dosin.2 (09/08/2022) Warfarin Plan As of 09/08/2022 Full warfarin instructions: 09/08: Hold; 09/09: Hold; 09/10: 2.5 mg; Otherwise 5 mg every day Next INR check: 09/22/2022 Repeat PT/INR in 2 week(s) Weekly dose: not changed Additional Dosing Information: Description GML Also sent MyG after trying to call Tech to contact patient with dose instructions as noted. Kim Mercado RPh 09/08/2022, 3:20 PM documented in this encounter Plan of Treatment Upcoming Encounters Date Type Specialty Care Team Description 09/09/2022 Office Visit Otolaryngology Jazmine Whitehead PA-C 132 [place] [address] 09/09/2022 Office Visit Audiology [facility], Audiology Brian More [address] [place] [address] 10/12/2022 Telemedicine Psychiatry Hugo Alcantara MD [address] [place] [address] 12/02/2022 Office Visit Pulmonary Jesus Bonilla MD [address] [place] [address] Scheduled Procedures Name Priority Associated Diagnoses [...] exists LUNG CANCER SCREENING - USE SMARTSET [address]49[address] Completed 03/16/2022 Influenza Vaccine (FLU shot) Completed [...] as of this encounter Visit Diagnoses Diagnosis residential current use 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- Primary documented in this encounter Advance Directives Documents on File Type Date Recorded 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
--- OUTSIDE RECORDS SUMMARY | 2023-07-25 04:31 | External Medical Summary | Summary of Care ---
Author Name Unknown Organization [place] [address] Care Team Providers Care Network Support Technician Name Role Phone Roger Alexandra MD Primary Care Provider [phone] [phone] Reason for Visit * Reason Onset Date Comments Advice 09/03/2022 [facility] nursing upd ate Encounter Details Date Type Department Care Team Description 09/03/2022 Telephone Pulmonary Medicine, [facility] [address] [place] [address] Services, Scheduling [address] [place] [address] Advice ([facility] nursing update) Allergies Active Allergy Reactions Severity Noted Date Comments Aspirin Unknown 12/12/2007 von Willebrand's disease Salicylates 03/01/2000 von Willebrand's disease documented as of this encounter (statuses as of 09/05/2022) Medications Medication Sig Dispensed Refills Start Date End Date Status Disposable Brief X-LargeIndications:O veractive bladder Attends X-Large Super Absorb Underwear 32 Each 2 03/18/2021 Active Vitamin D (Cholecalciferol) 25 MCG (1000 UT) Oral Capsule Take 1 Cap by mouth daily. 30 Cap 5 05/05/2021 Active ProAir HFA 108 (90 Base) MCG/ACT [...] 2017 classification ([facility]) Inhale by mouth 1 Puff in the morning. 60 Blister Dosing Unit 3 02/13/2022 Active Warfarin Sodium 5 MG Oral Tablet (Coumadin)Indication s:Paroxysmal atrial fibrillation (HCC) Take by mouth 1 Tablet in the evening. OR As directed by coumadin clinic. 90 Tablet 3 02/16/2022 Active Nystatin 303649 UNIT/GM External Powder (Nyamyc) apply to affected [...] severe pain 90 Tablet 0 08/27/2022 Active Hospital, Clinic, or Other Facility Administered [...] as of this encounter (statuses as of 09/05/2022) Active Problems Problem Noted Date Decreased functional [...] as of this encounter (statuses as of 09/05/2022) Resolved Problems Problem Noted Date Resolved Date [...] as of this encounter (statuses as of 09/05/2022) Immunizations Name Administration Dates Next Due H1N1 [...] encounter Miscellaneous Notes * Telephone Encounter - Jesus Bonilla MD - 09/05/2022 12:41 PM EDT Agree with need for ER evaluation given apparent worsening of her respiratory failure * Telephone Encounter - Yvonne Deluna LPN - 09/03/2022 4:25 PM EDT Spoke with [facility] nurse got an update on pt. She educated pt on the importance of taking the Lasix atthe same time everyday 08/27 291lb, 09/02 291.4lb, 09/03 293.5lb. Her sat is hoovering between 88%-90% on 4l at rest. [facility] nurse ambulated pt 90 ft at 5l o2 and her sat dropped to 84%. After sitting for 30 seconds her sat went up to 88% and then to 90% after 2 mins of rest. [facility] nurse recommended pt go to ED and she refused. I called pt and advised her to go to the ED to be evaluated and she said she's not going because she is not sick and she doesn't want to be admitted. Educated on the importance of getting her sats stable and that she shouldn't go against the recommendation and pt continued to refuse. * Telephone Encounter - RUFINA Pham - 09/03/2022 10:34 AM EDT Sushma from [facility] calling in stating she would like a call back from Dr. Toribio nurse so she can give them an update on pt. Please advise. Thank you! documented in this encounter Plan of Treatment Upcoming Encounters Date Type Specialty Care Team Description 09/07/2022 Office Visit Gastroenterology Shaneka Santiago MD [address] [place] [address] 09/08/2022 Laboratory Laboratory Processing [facility], [facility] Mobile Home Draw [address] [place] [address] 09/09/2022 [facility] [address] [place] [address] 09/09/2022 Office Visit Otolaryngology Jazmine Whitehead PA-C [address] [place] [address] 09/09/2022 Office Visit Audiology [place], Audiology Brian More [address] [place] [address] 10/12/2022 Telemedicine Psychiatry Hugo Alcantara MD [address] [place] [address] 12/02/2022 Office Visit Pulmonary Jesus Bonilla MD [address] [place] [address] Scheduled Procedures Name Priority Associated Diagnoses Date/Ti me COLONOSCOPY FLEXIBLE PROXIMAL DIAGNOSTIC Recall History of colon polyps Health Maintenance Due Date Last Done Comments COVID-19 Vaccine (#1) 1960 HIV Screening 1975 Hepatitis C Screening 1978 Pneumococcal Vaccine: Pediatrics (0 to 5 Years) and At-Risk Patients (6 to 64 Years) (2 - PCV) 03/20/2010 03/20/2009 Zoster Vaccines (1 of 2) 2010 Mammogram 10/28/2017 10/28/2015, 04/15, 05/12/2013, Additional history exists DTaP,Tdap,and Td Vaccines (2 - Td or Tdap) 06/27/2018 06/27/2008 Lipid Panel 09/25/2020 09/25/2015, 12/2014, 05/01/2011, Additional history exists Depression, Most Recent Score >= 10 (will fire each visit until score < 10) 04/24/2021 04/23/2021 *ADVANCE DIRECTIVE NOT ON FILE 02/16/2022 O2 ASSESSMENT COMPLETED IN PAST YEAR FOR COPD 08/28/2023 08/28/2022 Diabetes Screening 01/15/2025 01/15/2022, 0 01/08/2022, 01/03/2022, Additional history exists COLONOSCOPY-EVERY 5 YRS AGES 18-100 11/12/2025 11/12/2020, 05/22/2013, 08/21/2011, Additional history exists LUNG CANCER SCREENING - USE SMARTSET 16018 Completed 03/16/2022 Influenza Vaccine (FLU shot) Completed [...] Documents on File Type Date Recorded Patient Local Operator Expl 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 Advanced Directive 11/02/2011 12:00 AM Care Teams Network Support Technician Relationship Specialty Start Date End Date Roger Alexandra MD [address] [facility] [place] [id number] PCP - General Family Medicine 12/29/19 documented as of this encounter
--- OUTSIDE RECORDS SUMMARY | 2023-07-25 04:31 | External Medical Summary | Summary of Care ---
Author Name Unknown Organization [place] [address] Care Team Providers Care Partner Marketing Intern Name Role Phone Roger Alexandra MD Primary Care Provider [phone] [phone] Reason for Visit * Reason Onset Date Comments Advice 08/31/2022 re: O2 sats Encounter Details Date Type Department Care Team Description 08/31/2022 Telephone Pulmonary Medicine, [facility] [address] [place] [address] Jesus Bonilla MD [address] [address] Advice (re: O2 sats) Allergies Active Allergy Reactions Severity Noted Date Comments Aspirin Unknown 12/12/2007 von Willebrand's disease Salicylates 03/01/2000 von Willebrand's disease documented as of this encounter (statuses as of 08/31/2022) Medications Medication Sig Dispensed Refills Start Date [...] ications:COPD, group D, by GOLD 2017 classification ([facility]) Inhale by mouth 1 Puff in the morning. 60 Blister Dosing Unit 3 02/13/2022 Active Warfarin Sodium 5 MG Oral Tablet (Coumadin)Indication s:Paroxysmal atrial fibrillation (HCC) Take by mouth 1 Tablet in the evening. OR As directed by coumadin clinic. 90 Tablet 3 02/16/2022 Active Nystatin 685264 UNIT/GM External Powder (Nyamyc) apply to affected area twice a day 15 g 1 05/19/2022 Active oxygen IN GASIndications:Chron ic hypoxemic respiratory failure (HCC),COPD, group D, by GOLD 2017 classification ([facility]) Use 2 LPM at rest, [...] as of this encounter (statuses as of 08/31/2022) Active Problems Problem Noted Date Decreased functional [...] as of this encounter (statuses as of 08/31/2022) Resolved Problems Problem Noted Date Resolved Date [...] as of this encounter (statuses as of 08/31/2022) Immunizations Name Administration Dates Next Due H1N1 [...] Telephone Encounter - Jesus Bonilla MD - 08/31/2022 5:36 PM EDT Titrate oxygen for spo2 90-94%. With exertion can turn up to 4-5 L if dropping into the 80s. If persistently increased oxygen requirement at rest will need in person evaluation eiher as acute visit or in the ER * Telephone Encounter - Airam Ramey LPN - 08/31/2022 2:[address] Bonilla, this is the pt who presented to the office with sob and low sats, [facility]. She was discharged on O2 3LPM continuous. This morning home PT,Shavonne, visited the pt and wanted to report the pt has turned her O2 up to 4 LPM. On 4 liters at rest she is maintaining sats in low 90s, but if she is exerting on 4 liters, she dips into the high 80s. Pt knows she will need to go back to the ER if she isn't able to maintain sats above 89%. Please advise. * Telephone Encounter - RUFINA Zhao - 08/31/2022 9:41 AM EDT Shavonne calling from [facility] stating pt will receive at home PT 2 times a week for 2 weeks Then once a week for 5 weeks For weakness and gait training. Her oxygen readings she is 4 liters of oxygen at home. She is prescribed 3 liters. At rest the reading is between 90% and 91%. With standing and walking she is reduced to 87%. With any questions please call Shavonne at [phone]. To fax orders the fax number is [phone]. documented in this encounter Plan of Treatment Upcoming Encounters Date Type Specialty Care Team Description 09/02/2022 Office Visit Otolaryngology Jazmine Whitehead PA-C [address] [facility] [place] [address] 09/04/2022 Imaging Radiology 09/07/2022 Office Visit Gastroenterology Shaneka Santiago MD [address] [facility] [place] [address] 09/08/2022 Laboratory Laboratory [place] [facility] [address] [facility] [address] 09/09/2022 [facility] [address] 60 [facility] [place] [address] 10/12/2022 Telemedicine Psychiatry Hugo Alcantara MD [address] [facility] [place] [address] 12/02/2022 Office Visit Pulmonary Jesus Bonilla MD [address] [place] [id number] Scheduled Procedures Name Priority Associated Diagnoses Date/Ti [...] exists LUNG CANCER SCREENING - USE SMARTSET 32286 Completed 03/16/2022 Influenza Vaccine (FLU shot) Completed [...] Documents on File Type Date Recorded 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
--- OUTSIDE RECORDS SUMMARY | 2023-07-25 04:31 | External Medical Summary ---
Author Name Unknown Address Unknown Organization K0G[facility] [address] [place] [address] Laboratory Report Ordering Provider Test Date Status SUMAN STANFORD 09/08/2022 09:59:00 Final Observation Date Value Abnormality Reference (Units ) Status PT 09/08/2022 09:59:00 48.3 Above high normal 11 .6-15.2 (seconds) Final Performing Location [facility] [address] [place] [id number]
--- OUTSIDE RECORDS SUMMARY | 2023-07-25 04:31 | External Medical Summary | Summary of Care ---
Author Name Unknown Organization [place] [address] Care Team Providers Care Loss Prevention Guard Name Role Phone Roger Alexandra MD Primary Care Provider [phone] Reason for Visit * Reason Onset Date Comments Advice 08/31/2022 re: O2 sats Encounter Details Date Type Department Care Team Description 08/31/2022 Telephone Pulmonary Medicine, [facility] [address] [place] [address] Jesus [facility]illa [facility] [address] [facility] [address] Advice (re: O2 sats) Allergies Active Allergy Reactions Severity Noted Date Comments Aspirin Unknown 12/12/2007 von Willebrand's disease Salicylates 03/01/2000 von Willebrand's disease documented as of this encounter (statuses as of 09/01/2022) Medications Medication Sig Dispensed Refills Start Date [...] ications:COPD, group D, by GOLD 2017 classification ([facility]) Inhale by mouth 1 Puff in the morning. 60 Blister Dosing Unit 3 02/13/2022 Active Warfarin Sodium 5 MG Oral Tablet (Coumadin)Indication s:Paroxysmal atrial fibrillation (HCC) Take by mouth 1 Tablet in the evening. OR As directed by coumadin clinic. 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 * Telephone Encounter - Jesus Bonilla MD [...] and low sats, [facility]. She was discharged [...] 08/31/2022 9:41 AM EDT Shavonne calling from [facility] Home Health stating pt will receive at [...] With any questions please call Shavonne at [phone]. To fax orders the fax number is [phone]. documented in this encounter Plan of Treatment Upcoming Encounters Date Type Specialty Care Team Description 09/02/2022 Office Visit Otolaryngology Jazmine Whitehead PA-C [address] [place] [address] 09/04/2022 Imaging Radiology 09/07/2022 Office Visit Gastroenterology Shaneka Santiago MD [address] [place] [address] 09/08/2022 Laboratory Laboratory Processing [facility], [facility] Mobile Home Draw [address] [place] [address] 09/09/2022 [facility] [address] [place] [address] 10/12/2022 Telemedicine Psychiatry Hugo Alcantara MD [address] [place] [address] 12/02/2022 Office Visit Pulmonary Jesus Bonilla MD [address] [facility] [place] [id number] Scheduled Procedures Name Priority Associated Diagnoses Date/Ti [...] exists LUNG CANCER SCREENING - USE SMARTSET 07048 Completed 03/16/2022 Influenza Vaccine (FLU shot) Completed [...] Documents on File Type Date Recorded 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
--- OUTSIDE RECORDS SUMMARY | 2023-07-25 04:31 | External Medical Summary | Summary of Care ---
Author Name Unknown Organization [place] [address] Care Team Providers Care Folder Tier Name Role Phone Roger Alexandra MD Primary Care Provider [phone] Reason for Visit * Reason Onset Date Comments Home Health 08/27/2022 Encounter Details Date Type Department Care Team Description 08/27/2022 Telephone Family Practice [facility] [address] [place] [address] Roger Alexandra MD 132 [facility] [place] [id number] Home Health Allergies Active Allergy Reactions Severity [...] ications:COPD, group D, by GOLD 2017 classification ([facility]) Inhale by mouth 1 Puff in the morning. 60 Blister Dosing Unit 3 02/13/2022 Active Warfarin Sodium 5 MG Oral Tablet (Coumadin)Indication s:Paroxysmal atrial fibrillation (HCC) Take by mouth 1 Tablet in the evening. OR As directed by coumadin clinic. 90 Tablet 3 02/16/2022 Active Nystatin 511900 UNIT/GM External Powder (Nyamyc) apply to affected area twice a day 15 g 1 05/19/2022 Active oxygen IN GASIndications:Chron ic hypoxemic respiratory failure (HCC),COPD, group D, by GOLD 2017 classification ([facility]) Use 2 LPM at [...] No Preserve, 6 Mons & Above, IM 11/11/2021 Seasonal Influenza, Quadriva lent, No Preserve, IM [...] Miscellaneous Notes * Telephone Encounter - RUFINA Del Castillo - 09/01/2022 10:33 AM EDT Pt was already seen on 08/[address] Alexandra. * Telephone Encounter - Mónica Kurtz LPN - 08/28/2022 8:25 AM EDT Ej calling from [facility]. Since has a doctors appt. Today. Patient unavailable for PT. Asking for appt. Next week. Will fax over the information. * Telephone Encounter - Temi West LPN - 08/27/2022 1:43 PM EDT Katarina calling from [facility] Saw pt for start of care today. Was in the hospital with respiratory failure and hypoxia. Is scheduled to see PCP tomorrow. Pt is to have her INR checked tomorrow, will need order placed. Is not set up with mobile lab since being D/C from hospital. Also states that pt will need set up with the coumadin clinic. Pt does not want HH nursing drawing her labs. Will see pt one more time for nursing and will have PT and OT going in to see pt. FYI. documented in this encounter Plan of Treatment Upcoming Encounters Date Type Specialty Care Team Description 09/02/2022 Office Visit Otolaryngology Jazmine Whitehead PA-C [address] [place] [address] 09/04/2022 Imaging Radiology 09/07/2022 Office Visit Gastroenterology Shaneka Santiago MD [address] [place] [address] 09/08/2022 Laboratory Laboratory Processing [facility], [facility] Mobile Home Draw [address] [place] [address] 09/09/2022 [facility] [address] [place] [address] 10/12/2022 Telemedicine Psychiatry Hugo Alcantara MD [address] [place], [place] [phone] 12/02/2022 Office Visit Pulmonary Jesus Bonilla MD [address] [place] [id number] Scheduled Procedures Name Priority Associated Diagnoses Date/Ti [...] exists LUNG CANCER SCREENING - USE SMARTSET 15092 Completed 03/16/2022 Influenza Vaccine (FLU shot) Completed [...] Documents on File Type Date Recorded Patient Executive Chef Expl 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 Advanced Directive 11/02/2011 12:00 AM Care Teams Folder Tier Relationship Specialty Start Date End Date Roger Alexandra MD [address] [facility] [place] [address] PCP - General Family Medicine 12/29/19 documented as of this encounter
--- OUTSIDE RECORDS SUMMARY | 2023-07-25 04:31 | External Medical Summary | Summary of Care ---
Author Name Unknown Organization [place] [address] Care Team Providers Care Acquisition Lead Name Role Phone Roger Alexandra MD Primary Care Provider [phone] Reason for Visit * Reason Onset Date Comments case management 09/01/2022 MyG difficulties Encounter Details Date Type Department Care Team Description 09/01/2022 Clinical Trial Data Manager Telephone Care Coordination [address] [place], [place] [phone] Hannah Brown, RN [address] [place] [address] case management (MyG difficulties) Allergies Active Allergy Reactions Severity Noted Date [...] 2017 classification ([facility]) Inhale by mouth 1 Puff in the morning. 60 Blister Dosing Unit 3 02/13/2022 Active Warfarin Sodium 5 MG Oral Tablet (Coumadin)Indication s:Paroxysmal atrial fibrillation (HCC) Take by mouth 1 Tablet in the evening. OR As directed by coumadin clinic. 90 Tablet 3 02/16/2022 Active Nystatin 877972 UNIT/GM External Powder (Nyamyc) apply to affected [...] encounter Miscellaneous Notes * Telephone Encounter - Hannah Brown RN - 09/01/2022 4:02 PM EDT Called at request of another CM who receieved a VM from the patient -- she was unable to login to her [employer] [facility] [employer] account and wanted help. Phone call to patient, she reports, "kailey is alright now, I got it fixed." She denies any further needs at this point. documented in this encounter Plan of Treatment Upcoming Encounters Date Type Specialty Care Team Description 09/02/2022 Office Visit Otolaryngology Jazmine Whitehead PA-C [address] [place] [address] 09/04/2022 Imaging Radiology 09/07/2022 Office Visit Gastroenterology Shaneka Santiago MD [address] [facility] [place] [address] 09/08/2022 Laboratory Laboratory Processing [facility] Mobile Home Draw [address] [place] [address] 09/09/2022 [facility] [address] [place] [address] 10/12/2022 Telemedicine Psychiatry Hugo Alcantara MD [address] [place] [address] 12/02/2022 Office Visit Pulmonary Jesus Bonilla MD [address] [place] [address] Scheduled Procedures Name Priority Associated Diagnoses [...] exists LUNG CANCER SCREENING - USE SMARTSET 06798 Completed 03/16/2022 Influenza Vaccine (FLU shot) Completed [...] Documents on File Type Date Recorded Patient Machine Repair Person Expl 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 Advanced Directive 11/02/2011 12:00 AM Care Teams Acquisition Lead Relationship Specialty Start Date End Date Roger Alexandra MD [address] [place] [address] PCP - [facility] Medicine 12/29/19 documented as of this encounter
--- OUTSIDE RECORDS SUMMARY | 2023-07-25 04:31 | External Medical Summary | Summary of Care ---
Author Name Unknown Organization [facility] [place] [address] Care Team Providers Care Contracting Executive Name Role Phone Roger Alexandra MD Primary Care Provider [phone] [phone] Encounter Details Date Type Department Care Team Description 09/08/2022 Coin Machine Assembler Care Coordination [address] [place], [place] [id number] Lashae Valdez LCSW Depression with anxiety* Allergies Active Allergy Reactions [...] ications:COPD, group D, by GOLD 2017 classification ([facility]) Inhale by mouth 1 Puff in the morning. 60 Blister Dosing Unit 3 02/13/2022 Active Warfarin Sodium 5 MG Oral Tablet (Coumadin)Indication s:Paroxysmal atrial fibrillation (HCC) Take by mouth 1 Tablet in the evening. OR As directed by coumadin clinic. 90 Tablet 3 02/16/2022 Active Nystatin 756356 UNIT/GM External Powder (Nyamyc) apply to affected [...] as of this encounter Progress Notes * Lashae Valdez, BOBBIN CLEANER HAND - 09/08/2022 1:55 PM EDT PAST PSYCHIATRY HISTORY: Are you currently being treated for a mental health or substance use condition? Yes: Name of Treating Clinician: Dr. Alcantara at [facility] and Diagnosis: Depression with anxiety, PTSD Ever been treated as an OUTPATIENT (such as a doctor's or therapist's office or a clinic) for a mental health or substance use condition? Yes Ever been HOSPITALIZED for a mental health or substance use condition? Yes Number of Times: 4 Ever been to the EMERGENCY ROOM for a mental health or substance use condition? Unknown Have you overdosed in the last month? No Do you have any of the following chronic MEDICAL conditions? See problem list below Medical History DIAGNOSIS: Patient Active Problem List [...] Chronic diastolic CHF (congestive heart failure) ([facility]) I50.32 PTSD (post-traumatic stress disorder) F43.10 COPD, group D, by GOLD 2017 classification ([facility]) J44.9 Chronic hypoxemic respiratory failure ([facility]) J96.11 History of narcotic addiction ([facility]) F11.21 Decreased functional mobility R26.89 MEDICATIONS: Current Outpatient Medications Medication Sig Dispense [...] Ellipta 100-62.5-25 MCG/INH Aerosol Powder Breath Activated (ywqharbzccb-inueacqwyxdu-nvyzaugaiy) Inhale by mouth 1 Puff in the morning. 60 Blister Dosing Unit 3 Warfarin Sodium 5 MG Oral Tablet (Coumadin) Take by mouth 1 Tablet in the evening. OR As directed by coumadin clinic. 90 Tablet 3 Nystatin 619183 UNIT/GM External Powder (Nyamyc) apply to affected [...] Tablets in the morning. 6 day course. (Patient not taking: Reported on 09/07/2022 ) hydrOXYzine HCl 25 MG Oral Tablet Take [...] 1 Capsule before bedtime. 60 Capsule 0 Current Facility-Administered Medications Medication Dose Route Frequency Provider Last Rate Last Admin Albuterol Sulfate (Proventil) (2.5 MG/3ML) 0.083% inhalation solution 2.5 mg 2.5 mg Nebulizer PRN Jesus Bonilla MD Albuterol Sulfate (Proventil) (5 MG/ML) 0.5% *conc* inhalation solution 2.5 mg 2.5 mg NebulizerPRN Jesus Bonilla MD 2.5 mg at 05/07/22 1507 Comprehensive Assessment S: [facility] spoke with patient today via phone. Introduced self, role, and reason for call and informedof recorded line. Pt reports she always has anxiety and is currently following with Dr. Alcantara with [facility] Psychiatry and with Dr. Lilly before that. She is prescribed medications for anxiety and depression, but states she does not feel they are helpful. Has upcoming appointment with psychiatrist 10/12/22 and is agreeable to discuss this with him at that appointment. She reports she has been in counseling in the past but it was just talking and she felt she could get that from her friendsand family for free. Asked patient if there are any coping skills she uses at home to help with her anxiety, she states nothing she does is really helpful. She often watches TV. She reports living alone but has a caregiver with her during the day. Pt reports having friends and family who are supportive and she talks to someone at least once a day. Pt stated that all these questions from [facility] wereupsetting her and she was not sure what if anything that she needed any help with at this time. [facility] discussed connection to additional supports to help manage anxiety and depression. Pt reports she does not leave her home much and her providers are aware of that so she does telehealth with her psychiatrist. Discussed other services that could be accessed via telehealth as well. Pt not interestedat this time. [facility] offered to send message to patient's psychiatrist to let him know she continues to struggle with anxiety and does not feel the medications are helpful. Pt agreeable. REFERRAL: Anxiety and Depression O: Phone encounter Patient's report of symptoms/progress (affect, level of awareness, mood): Affect: flat Level of awareness: alert Behavior (if face to face): phone A: Pt not interested in additional services at this time. Discussed ongoing issues with anxiety and depression, medications, and additional supports. Pt feels she can talk to her friends and family if needed. Support system: yes Screening Questionnaires: Unable to assess. Pt reports having severe depression, but did not want any more questions. No flowsheet data found. Mood: anxious, depressed and irritable Cognitive and Mental Health: alert and oriented x3 Substance Abuse Use/History: Unable to assess History of Violence or Trauma: PTSD diagnosis Suicidal ideation/Intent: Denied by patient. Homicidal ideation/Intent: Denied. Psychotic symptoms: None reported Speech: Sounded short of breath and noted to be using oxygen, normal rate and normal volume Thought Process: within normal limits Thought Content: Delusions: No Hallucinations: No Obsessions: No Cognition: grossly intact Insight: fair Judgment: fair Medications: Taking all medication as directed. Identified Barriers: lack of motivation and physical health barriers Coin Machine Assembler Interventions: enhancement of social supports/resources P: Pt declined additional supports or services at this time. [facility] will send message to psychiatrist regarding conversation with patient with her permission. [facility] to close referral. Encouraged patient to reach out if any additional needs arise. Lashae Valdez LCSW Coin Machine Assembler-Behavioral Health [facility] [phone] [email or web address] documented in this encounter Plan of Treatment Upcoming Encounters Date Type Specialty Care Team Description 09/09/2022 [facility] [address] [facility] [place] [facility] 09/09/2022 Office Visit Otolaryngology Jazmine Whitehead PA-C [address] [facility] [place] [address] 09/09/2022 Office Visit Audiology [facility] [address] [place] [address] 10/12/2022 Telemedicine Psychiatry Hugo Alcantara MD [address] [place] [address] 12/02/2022 Office Visit Pulmonary Jesus Bonilla MD [address] [facility] [place] [address] Scheduled Procedures Name Priority Associated Diagnoses Date/Ti [...] FOR COPD 09/07/2023 09/07/2022 Mammogram 09/04/2024 09/04/2022, 12/02/2015, 04/27/2014, Additional history exists Diabetes Screening 01/15/2025 01/15/2022, 0 01/08/2022, 01/03/2022, Additional history exists COLONOSCOPY-EVERY 5 YRS AGES 18-100 11/12/2025 11/12/2020, 05/22/2013, 08/21/2011, Additional history exists LUNG CANCER SCREENING - USE SMARTSET [id number] Completed 03/16/2022 Influenza Vaccine (FLU shot) Completed [...] Primary Dysthymic disorder documented in this encounter Advance Directives Documents on File Type Date Recorded Patient Editor School Photograph Expl 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 Advanced Directive 11/02/2011 12:00 AM Care Teams Contracting Executive Relationship Specialty Start Date End Date Roger Alexandra MD [address] [place] [address] PCP - General Family Medicine 12/29/19 documented as of this encounter
--- OUTSIDE RECORDS SUMMARY | 2023-07-25 04:31 | External Medical Summary | Summary of Care ---
Author Name Unknown Organization [place] [address] Care Team Providers Care Control Clerk Subassembly Name Role Phone Roger Alexandra MD Primary Care Provider [phone] Encounter Details Date Type Department Care Team Description 09/08/2022 Textile Technologist Care Coordination [address], [place] [id number] Lashae Valdez LCSW Depression with anxiety* Allergies [...] clinic. 90 Tablet 3 02/16/2022 Active Nystatin 443872 UNIT/GM External Powder (Nyamyc) apply to affected [...] this encounter Progress Notes * Lashae Valdez, STATION EXAMINER - 09/08/2022 1:55 PM EDT PAST PSYCHIATRY HISTORY: Are you currently being treated for a mental health or substance use condition? Yes: Name of Treating Clinician: Dr. Alcantara at [facility] and Diagnosis: Depression with anxiety, PTSD Ever [...] Z86.73 Chronic diastolic CHF (congestive heart failure) ([facility]) I50.32 PTSD (post-traumatic stress disorder) F43.10 COPD, group D, by GOLD 2017 classification ([facility]) J44.9 Chronic hypoxemic respiratory failure ([facility]) J96.11 History of narcotic addiction ([facility]) F11.21 Decreased functional mobility R26.89 [...] Ellipta 100-62.5-25 MCG/INH Aerosol Powder Breath Activated (hjdpublkshl-agnjpewnoywk-sysvbfunpo) Inhale by mouth 1 Puff in the morning. 60 Blister Dosing Unit 3 Warfarin Sodium 5 MG Oral Tablet (Coumadin) Take by mouth 1 Tablet in the evening. OR As directed by coumadin clinic. 90 Tablet 3 Nystatin 694424 UNIT/GM External Powder (Nyamyc) apply to affected [...] mg at 05/07/22 1507 Comprehensive Assessment S: [facility] spoke with patient today via phone. Introduced self, role, and reason for call and informedof recorded line. Pt reports she always has anxiety and is currently following with Dr. Alcantara with [facility] Psychiatry and with Dr. Lilly before that. [...] Pt stated that all these questions from [facility] wereupsetting her and she was not sure what if anything that she needed any help with at this time. [facility] discussed connection to additional supports to help manage anxiety and depression. Pt reports she does not leave her home much and her providers are aware of that so she does telehealth with her psychiatrist. Discussed other services that could be accessed via telehealth as well. Pt not interestedat this time. [facility] offered to send message to patient's psychiatrist [...] lack of motivation and physical health barriers Textile Technologist Interventions: enhancement of social supports/resources P: Pt declined additional supports or services at this time. [facility] will send message to psychiatrist regarding conversation with patient with her permission. [facility] to close referral. Encouraged patient to reach out if any additional needs arise. Lashae Valdez LCSW Textile Technologist-Behavioral Health [facility] [employer] [facility] [phone] [email or web address] documented in this encounter Plan of Treatment Upcoming Encounters Date Type Specialty Care Team Description 09/09/2022 [facility] [address] [facility] [place] [facility] 09/09/2022 Office Visit Otolaryngology Jazmine Whitehead PA-C [address] [facility] [place] [address] 09/09/2022 Office Visit Audiology [facility] Audiology [facility] [address] [place] [address] 10/12/2022 Telemedicine Psychiatry Hugo Alcantara MD [address] [place] [address] 12/02/2022 Office Visit Pulmonary Jesus Bonilla MD [address] [facility] [place] [address] Scheduled Procedures Name Priority Associated Diagnoses Date/Ti [...] exists LUNG CANCER SCREENING - USE SMARTSET 45276 Completed 03/16/2022 Influenza Vaccine (FLU shot) Completed [...] Documents on File Type Date Recorded Patient Precast Concrete Products Installer Expl 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 Advanced Directive 11/02/2011 12:00 AM Care Teams Control Clerk Subassembly Relationship Specialty Start Date End Date Roger Alexandra MD [address] [place] [address] PCP - General Family Medicine 12/29/19 documented as of this encounter
--- OUTSIDE RECORDS SUMMARY | 2023-07-25 04:31 | External Medical Summary | Summary of Care ---
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 Name Role Phone Jeevan Alexandra MD Primary Care Provider [phone] Reason for Visit * Reason Comments NEW PATIENT globus sensation * Evaluate & Treat - Unlimited Visits (Within 30 days (routine)) - Authorized Specialty Diagnoses / Procedures Referred By Anna hendrix Referred To Contact Gastroenterology Diagnoses Globus sensation Jeevan Alexandra MD [address] [facility] [place] [address] Referral ID Status Reason Start Date Expiration Date Visits Requested Visits Authorized [id number] Authorized Specialty Services Required 2 999 999 Encounter Details Date Type Department Care Team Description 09/07/2022 Office Visit Gastroenterology, [facility] [address] [place] [address] Shaneka Santiago MD [address] [facility] [place] [address] Chest pressure* Allergies Active Allergy Reactions Severity Noted Date Comments Aspirin Unknown 12/12/2007 von Willebrand's disease Salicylates 03/01/2000 von Willebrand's disease documented as of this encounter (statuses as of 09/07/2022) Medications Medication Sig Dispensed Refills Start Date End Date Status Disposable Brief X-LargeIndications: Overactive bladder Attends X-Large [...] clinic. 90 Tablet 3 02/16/2022 Active Nystatin [id number] UNIT/GM External Powder (Nyamyc) apply to affected area twice a day 15 g 1 05/19/2022 Active oxygen IN GASIndications:Pediatric Physician Assistant 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 respiratory failure (HCC),COPD, group D, [...] before bedtime. 60 Capsule 0 09/07/2022 Active Vitamin D (Cholecalciferol) 25 MCG (1000 UT) Oral Capsule Take 1 Cap by mouth daily. 30 Cap 5 05/05/2021 Discontinue d(Patient preference/ discontinua tion) Hospital, Clinic, or Other Facility Administered Medication Ordered Dose Route Frequency Start Date End Date Status Albuterol Sulfate (Proventil) (2.5 MG/3ML) 0.083% inhalation solution 2.5 mgIndications:Chronic hypoxemic respiratory failure (HCC),COPD, group D, by GOLD 2017 classification ([facility]) 2.5 mg NEBULIZER PRN 03/10/2022 03/10/2023 Acti ve Albuterol Sulfate (Proventil) (5 MG/ML) 0.5% *conc* inhalation solution 2.5 mgIndications:Chronic hypoxemic respiratory failure (HCC),COPD, group D, by GOLD 2017 classification ([facility]) 2.5 mg NEBULIZER PRN 03/10/2022 03/10/2023 Acti ve documented as of this encounter (statuses as of 09/07/2022) Active Problems Problem Noted Date Decreased functional [...] as of this encounter (statuses as of 09/07/2022) Resolved Problems Problem Noted Date Resolved Date [...] as of this encounter (statuses as of 09/07/2022) Immunizations Name Administration Dates Next Due H1N1 [...] Sign Reading Time Taken Comments Blood Pressure 132/72 09/07/2022 2:12 PM EDT Pulse 105 09/07/2022 2:12 PM EDT Temperature 36.4 C (97.5 F) 09/07/2022 2 :12 PM EDT Respiratory Rate 20 09/07/2022 2:12 PM EDT Oxygen Saturation 93% 09/07/2022 2:1 2 PM EDT 4L Inhaled Oxygen Concentration - - Weight 131.1 kg (289 lb) 09/07/2022 2:1 2 PM EDT per patient from home Height 158.8 cm (5' 2.5") 09/07/2022 2: 12 PM EDT Body Mass Index 52.02 09/07/2022 2:12 PM EDT documented in this encounter Progress Notes * Shaneka Santiago MD - 09/07/2022 2:37 PM EDT Consult requested by Ref: JEEVAN ALEXANDRA[[id number]] [address] [place] [address] (office) [phone] (fax) HPI: 62 year old female seen for sensation of chest pressure x 2 weeks. She tells me that she has a constant sense of pressure in upper chest for 2 weeks. No GERD symptoms. No dysphagia -- eating well, no difficulty with food. Admitted [facility] 08/24 ago for SOB, hypoxia, dry cough, pleuritic CP -- given steroids. Swallow study during hosp stay showed normal swallow, normal esophageal clearance. On baclofen. Not on PPI. Prior EGD/enteroscopy 2019. ROS: GEN: no weight loss, fever, fatigue HEENT: no changes in vision or hearing, no sinus problems, no sore throat, no hoarsenss RESP: no cough, wheezing, SOB or change in breathing CARDIOVASCULAR: no exertional chest pain, dyspnea, palpitations GI: see HPI , otherwise negative : no dysuria, hematuria, polyuria MUSCULOSKELETAL: no change in joint pains, no new arthritis PSYCHIATRIC: no significant anxiety or depression, unchanged sleep pattern HEME: no bleeding tendency, no transfusion history NEURO: no significant headache, no seizures , no tremors SKIN: no new rashes, no itching ALLERGIES: Review of patient's allergies indicates: Allergen Reactions Aspirin Unknown von Willebrand's disease Salicylates von Willebrand's disease Past Medical History: Diagnosis Date Back disorder [...] to excess calories (HCC) 03/05/2020 Narcotic addiction ([facility] Left benign--- done in her late 20's COLONOSCOPY, DIAGNOSTIC (RECTUM) 11/12/2020 large adenomatous polyp, repeat 6 mo / [facility] COLONOSCOPY, W/BIOPSY 10/06/2010 adenomatous/repeat colonoscopy in 1 yr COLONOSCOPY, W/BIOPSY 05/22/2013 hyperplastic polyp EGD, FLEXIBLE, DIAGNOSTIC 02/26/2015 retained food/[facility] EGD, FLEXIBLE, DIAGNOSTIC 11/12/2020 Gastric submucosal mass / [facility] EGD, FLEXIBLE, DIAGNOSTIC 11/06/2020 gastritis / [facility] EGD, FLEXIBLE, W/BIOPSY 05/19/2013 EGD, W/ENDOSCOPIC US 11/05/2011 UPPER GI ENDOSCOPY ENDOSCOPIC ULTRASOUND performed [place] BERENICE ASHBY [place] [facility]; REPAIR INITIAL INGUINAL HERNIA REMOVE GALLBLADDER TOTAL HYSTERECTOMY and bso Family History Problem Relation Age of Onset Lung Disorder Mother copd Other (hepatitis) Mother Heart Disorder Father age 55 mu Mental Disorder Father schizophrenia Asthma Father Other (Other) Sister from sleep apnea Neurological Disorder Sister MR and epilepsy Other (Other) Son 2 sons von willebrand Other (Other) Daughter asd Social History Socioeconomic History Marital status: Spouse name: Not on file Number of children: 3 Years of education: Not on file Highest education level: Not on file Occupational History Not on file Tobacco Use Smoking status: Former Smoker Packs/day: 1.50 Years: 32.00 Pack years: 48.00 Types: Cigarettes Quit date: 2019 Years since quittin.8 Smokeless tobacco: Never Used Vaping Use Vaping Use: Former Substance and [...] on file Housing Stability: Not on file Current Outpatient Medications Medication Sig Dispense Refill ProAir HFA 108 (90 Base) MCG/ACT Inhalation Aerosol Solution Inhale by mouth 2 Puffs 4 times a day . 18 g 1 Furosemide 20 MG Oral Tablet (Lasix) Take by mouth 1 Tablet daily as needed (lower leg swelling). 30 Tablet 11 Trelegy Ellipta 100-62.5-25 MCG/INH Aerosol Powder Breath Activated (dwpstsdrhbi-zjwvelfwckxf-ecvrrhfddz) Inhale by mouth 1 Puff in the [...] pain to severe pain 90 Tablet 0 Disposable Brief X-Large Attends X-Large Super Absorb Underwear 32 Each 2 Nystatin [id number] UNIT/GM External Powder (Pramy) apply to affected area twice a day 15 g 1 predniSONE 20 MG Oral Tablet (Deltasone) Take by mouth 2 Tablets in the morning. 6 day course. (Patient not taking: Reported on 09/07/2022 ) Current Facility-Administered Medications Medication Dose Route Frequency Provider Last Rate Last Admin Albuterol Sulfate (Proventil) (2.5 MG/3ML) 0.083% inhalation solution 2.5 mg 2.5 mg Nebulizer PRN Jesus Bonilla MD Albuterol Sulfate (Proventil) (5 MG/ML) 0.5% *conc* inhalation solution 2.5 mg 2.5 mg NebulizerPRN Jesus Bonilla MD 2.5 mg at 05/07/22 1507 BP 132/72 | Pulse 105 | Temp 36.4 C (97.5 F) (Infrared ) | Resp 20 | Ht 1.588 m (5' 2.5") | Wt 131.1 kg (289 lb) Comment: per patient from home | SpO2 93% Comment: 4L | BMI 52.02 kg/m | BSA 2.4m GENERAL: Obese. She has to pause mid sentence to take a breath. SKIN: no rashes, ulcers, or spider angiomata HEENT: normocephalic, sclerae clear, pharynx normal, no thrush NECK: supple, no masses or thyroid enlargement LUNGS: Wheezes throughout, no rales HEART: regular rate & rhythm, no murmurs and no gallops ABDOMEN: Enormous pannus EXTREMITIES: Bilateral edema NEURO: no lateralizing findings, Sensory/Motor grossly normal ASSESSMENT/PLAN: Chest pressure - Symptmos not clearly GI in origin, but have asked her to try PPI BID and 2 week trial off Baclofen to see if this helps her symptoms. She is not a candidate for esophagram, as she cannot stand; sheis also not a candidate for EGD given her tenuous cardiopulmnoary status. I have asked her to follow up with PCP - if symptoms persist, may consider empiric trial of diflucan for esophageal candidiasis, as she has risk fx for this. RTC PRN. Shaneka Santiago MD documented in this encounter Nursing Notes * Esperanza Dejesus RN - 09/07/2022 2:15 PM EDT Chief Complaint Patient presents with NEW PATIENT globus sensation Feels like something is stuck in her throat. Has felt like this for about 2 weeks. Is able to swallow liquids and solid foods but has a feeling that something is also stuck. documented in this encounter Plan of Treatment Upcoming Encounters Date Type Specialty Care Team Description 09/08/2022 Laboratory Laboratory Processing [facility] Mobile Home Draw [address] [place] [address] 09/09/2022 [facility] [address] [place] [address] 09/09/2022 Office Visit Otolaryngology Jazmine Whitehead PA-C [address] [facility] [address] 09/09/2022 Office Visit Audiology Leija, Aud[facility] Brian More [facility] [address] 10/12/2022 Telemedicine Psychiatry Hugo Alcantara MD [address] [place], [place] [address] 12/02/2022 Office Visit Pulmonary Jesus Bonilla MD [address] [place] [address] Scheduled Procedures Name Priority [...] exists LUNG CANCER SCREENING - USE SMARTSET 51183 Completed 03/16/2022 Influenza Vaccine (FLU shot) Completed [...] as of this encounter Visit Diagnoses Diagnosis Chest pressure- Primary Other chest pain documented in this encounter Advance Directives Documents on File Type Date Recorded 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
--- OUTSIDE RECORDS SUMMARY | 2023-07-25 04:32 | External Medical Summary | Summary of Care ---
Author Name Unknown Organization [place] [address] Care Team Providers Care Laboratory Coordinator Name Role Phone Roger Alexandra MD Primary Care Provider [phone] Encounter Details Date Type Department Care Team Description 08/20/2022 Office Visit Pulmonary Medicine, [facility] [address] [facility] [place] [address] Jesus Bonilla MD [address] [facility] [place] [address] Respiratory distress*; Tachycardia; COPD, group D, by GOLD 2017 classification (HCC); Chronic hypoxemic respiratory failure (HCC) Allergies Active Allergy Reactions Severity Noted Date Comments Aspirin Unknown 12/12/2007 von Willebrand's disease Salicylates 03/01/2000 von Willebrand's disease documented as of this encounter (statuses as of 08/27/2022) Medications Medication Sig Dispensed Refills Start Date [...] GOLD 2017 classification ([facility]) Inhale by mouth 1 Puff in the morning. 60 Blister Dosing Unit 3 02/13/2022 Active Warfarin Sodium 5 MG Oral Tablet (Coumadin)Indicatio ns:Paroxysmal atrial fibrillation (HCC) Take by mouth 1 Tablet in the evening. OR As directed by coumadin clinic. 90 Tablet 3 02/16/2022 Active Baclofen 10 MG Oral Tablet (Lioresal) Take by mouth 1 Tablet as needed in the morning AND 1 Tablet as needed at noon AND 1 Tablet as needed in the evening for Muscle spasms. 90 Tablet 3 02/16/2022 Active Nystatin [id number] UNIT/GM External Powder (Nyamyc) apply to affected area twice a day 15 g 1 05/19/2022 Active oxygen IN GASIndications:House Detective 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 respiratory failure (HCC),COPD, group D, by GOLD 2017 classification ([facility]) Use 2 LPM at rest, 4 LPM with exertion and with sleep. 1 Each 0 2022 Active Isosorbide Mononitrate ER 30 MG Oral Tablet Extended Release 24 Hour (Imdur) take 1 tablet by mouth daily 30 Tablet 5 07/28/2022 Active traMADol HCl 100 MG Oral TabletIndications:C hronic bilateral low back pain without sciatica take 1 tablet by mouth every 8 hours if needed for moderate pain to severe pain 90 Tablet 0 07/29/2022 Active Gabapentin 300 MG Oral Capsule (Neurontin) [...] 2 Tablets before bedtime. 120 Tablet 1 06/22/2022 2 Discontinue d(Refill) Hospital, Clinic, or Other [...] as of this encounter (statuses as of 08/27/2022) Active Problems Problem Noted Date History of narcotic addiction 12/19/2021 Chronic hypoxemic respiratory failure COPD, group D, by GOLD 2017 classificati on 04/29/2021 Overview: Per COPD GOLD Classification PTSD (post-traumatic stress disorder) Chronic diastolic CHF (congestive heart failure) 10/23/2020 Overview: Noted on ECHO 10/2020 Drug-seeking behavior 10/17/2020 History of multiple strokes 10/17/2020 Non compliance w medication regimen 09/17 Chronic bilateral low back pain without sciatica 10/14/2020 Paroxysmal atrial fibrillation 0 Moderate episode of recurrent major depr essive disorder 03/05/2020 Morbid obesity due to excess calories Acquired hypothyroidism 04/16/2015 Idiopathic cardiomyopathy 09/15/2013 Von Willebrand disease 03/10/2013 Obstructive sleep apnea 07/05/2007 Overview: ICD-10 update of inactive term SIMA (generalized anxiety disorder) 02/08 Irritable bowel syndrome with diarrhea 0 04/13/2001 documented as of this encounter (statuses as of 08/27/2022) Resolved Problems Problem Noted Date Resolved Date Body mass index (BMI) of 40.0 to 44.9 in adult 1 12/29/2019 03/05/2021 Overview: Per Obesity protocol Hemiplegia 06/07/2020 10/14/2020 Venous stasis 04/16/2015 12/29/2019 Narcotic addiction 10/04/2014 [...] 05/01/2021 Acute bronchitis, antibiotics not indicated 03/1606/27/2008 Atrial septal defect 02/04/2006 12/21/2008 Atrial septal [...] UNSPECIFIED 07/19/2002 02/06/2010 Overview: Per Obesity Taxonomy Depression with anxiety 03/05/20 20 EXT ASTHMA W-O STAT ASTH 010 Tobacco use disorder 04/23/2021 documented as of this encounter (statuses as of 08/27/2022) Immunizations Name Administration Dates Next Due H1N1 [...] Sign Reading Time Taken Comments Blood Pressure 130/88 08/20/2022 1:37 PM EDT Pulse 128 08/20/2022 1:37 PM EDT Temperature 37.5 C (99.5 F) 08/20/2022 1:37 PM ED T Respiratory Rate 41 08/20/2022 1:37 PM EDT Oxygen Saturation 91% 08/20/2022 1:37 PM EDT ra, rest Inhaled Oxygen Concentration - - Weight 130.9 kg (288 lb 8 oz) 08/20/2022 1:37 PM EDT Height - - Body Mass Index 51.93 2022 10:37 AM EDT documented in this encounter Progress Notes * Jesus Bonilla MD - 08/20/2022 1:42 PM EDT Patient arrived in respiratory distress- grunting, tachypnea into the 40s, tachycardic- 128. She was 93% at rest on 4 L via inogen. BP is 130/88. Has LE edema, decreased BS bilaterally. Speaking in very short sentences. DDX for her respiratory distress includes possible AECOPD gold D or acute on chronic CHF, and/or possible afib with rvr. Discussed with patient that due to her acute respiratory distress I am recommending she be further evaluated in the nearest ER. EMS has been called and patient has agreed to further eval in the ER> grand daughter updated at the bedside. documented in this encounter Nursing Notes * Yvonne Deluna LPN - 08/20/2022 1:45 PM EDT Pt presented for appointment complained of extreme SOB, 41 respirations, HR 128 and regular, pt is diaphoretic, complained of chest heaviness. Dr. Bonilla came in and spoke with the pt and advised transport to hospital via ambulance. 911 called and en route. Pt's grand daughter waiting with pt. documented in this encounter Plan of Treatment Upcoming Encounters Date Type Specialty Care Team Description 08/28/2022 Office Visit Family Medicine Roger Alexandra MD [address] [place] [address] 09/02/2022 Office Visit Otolaryngology Jazmine Whitehead PA-C [address] [place] [address] 09/08/2022 Laboratory [place] [facility] [place] Mobile Home Draw [address] [place] [address] 09/09/2022 [facility] [address] [place] [address] 10/12/2022 Telemedicine Psychiatry Hugo Alcantara MD [address] [place] [address] 12/02/2022 Office Visit Pulmonary Jesus Bonilla MD [address] [place] [facility] [place] [address] Scheduled Procedures Name Priority Associated Diagnoses Date/Ti [...] FILE 02/16/2022 Influenza Vaccine (FLU shot) (#1) 2022 11/11/2021, 11/11/2021, 09/15/2020, Additional history exists O2 ASSESSMENT COMPLETED IN PAST YEAR FOR COPD 08/20/2023 08/27/2022 Diabetes Screening 01/15/2025 01/15/2022, 0 01/08/2022, 01/03/2022, Additional history exists COLONOSCOPY-EVERY 5 YRS AGES 18-100 11/12/2025 11/12/2020, 05/22/2013, 08/21/2011, Additional history exists LUNG CANCER SCREENING - USE SMARTSET 87596 Completed 03/16/2022 GARDASIL-HPV IMMUNIZATION SERIES Aged Out No longer eligible based on patient's age to complete this topic Hepatitis B Aged Out No longer eligi ble based on patient's age to complete this topic MENINGOCOCCAL (MENACTRA/MENVEO) Aged Out No longer eligible based on patient's age to complete this topic documented as of this encounter Implants Not on filedocumented as of this encounter Visit Diagnoses Diagnosis Respiratory distress- Primary Other dyspnea and respiratory abnormality Tachycardia Tachycardia, unspecified COPD, group D, by GOLD 2017 classification (HCC) Chronic hypoxemic respiratory failure (HCC) Chronic respiratory failure documented in this encounter Advance Directives Documents on File Type Date Recorded Patient Good 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
--- OUTSIDE RECORDS SUMMARY | 2023-07-25 04:32 | External Medical Summary | Summary of Care ---
Author Name Unknown Organization [place] [address] Care Team Providers Care Flexible Machining System Machinist Name Role Phone Roger Alexandra MD Primary Care Provider [phone] Reason for Visit * Reason Onset Date Comments Medication Refill 08/26/2022 Encounter Details Date Type Department Care Team Description 08/26/2022 Refill Family Practice [facility] [address] [facility] [place] [address] Roger Alexandra MD 132 [facility] [place] [id number] Chronic bilateral low back pain without sciatica [...] ndications:COPD, group D, by GOLD 2017 classification ([facility]) Inhale by mouth 1 Puff in the morning. 60 Blister Dosing Unit 3 02/13/2022 Active Warfarin Sodium 5 MG Oral Tablet (Coumadin)Indicatio ns:Paroxysmal atrial fibrillation (HCC) Take by mouth 1 Tablet in the evening. OR As directed by coumadin clinic. 90 Tablet 3 02/16/2022 Active Nystatin 152716 UNIT/GM External Powder (Nyamyc) apply to affected area twice a day 15 g 1 05/19/2022 Active oxygen IN GASIndications:Application Development Specialist 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 respiratory failure (HCC),COPD, group D, [...] severe pain 90 Tablet 0 08/27/2022 Active Baclofen 10 MG Oral Tablet (Lioresal) Take by mouth 1 Tablet as needed in the morning AND 1 Tablet as needed at noon AND 1 Tablet as needed in the evening for Muscle spasms. 90 Tablet 3 02/16/2022 2 Discontinue d(Refill) traMADol HCl 100 MG Oral TabletIndications:C hronic bilateral low back pain without sciatica take 1 tablet by mouth every 8 hours if needed for moderate pain to severe pain 90 Tablet 0 07/29/2022 2 Discontinue d(Refill) Hospital, Clinic, or Other Facility Administered Medication Ordered Dose Route Frequency Start Date End Date Status Albuterol Sulfate (Proventil) (2.5 MG/3ML) 0.083% inhalation solution 2.5 mgIndications:Chronic hypoxemic respiratory failure (HCC),COPD, group D, by GOLD 2017 classification ([facility]) 2.5 mg NEBULIZER PRN 03/10/2022 03/10/2023 Acti ve Albuterol Sulfate (Proventil) (5 MG/ML) 0.5% *conc* inhalation solution 2.5 mgIndications:Chronic hypoxemic respiratory failure (HCC),COPD, group D, by GOLD 2017 classification ([facility]) 2.5 mg NEBULIZER PRN 03/10/2022 [...] 12/21/2008 12/19/2021 Chest pain, non-cardiac 12/12/2007 12/29/19 COPD, severe 04/06/2007 05/01/2021 Acute bronchitis, antibiotics [...] Telephone Encounter - Matt Mathew DO - 08/27/2022 7:40 PM EDT Signed Prescriptions: Disp Refills Baclofen 10 MG Oral Tablet (Lioresal) 90 Tab*0 Sig: Take by mouth 1 Tablet as needed in the morning AND 1 Tablet as needed at noon AND 1 Tablet as needed in the evening for Muscle spasms.Authorizing Provider: MATT MATHEW traMADol HCl 100 MG Oral Tablet 90 Tab*0 Sig: take 1 tablet by mouth every 8 hours if needed for moderate pain to severe painAuthorizing Provider: MATT MATHEW * Telephone Encounter - Matt Mathwe DO - 08/27/2022 7:40 PM EDT Signed Prescriptions: Disp Refills Baclofen 10 MG Oral Tablet (Lioresal) 90 Tab*0 Sig: Take by mouth 1 Tablet as needed in the morning AND 1 Tablet as needed at noon AND 1 Tablet as needed in the evening for Muscle spasms.Authorizing Provider: MATT MATHEW traMADol HCl 100 MG Oral Tablet 90 Tab*0 Sig: take 1 tablet by mouth every 8 hours if needed for moderate pain to severe painAuthorizing Provider: MATT MATHEW * Telephone Encounter - Katie Coto CPhT - 08/27/2022 5:59 PM EDT pt calling to check on status of tramadol. Caller can be reached at [phone]. Thank you, Katie Coto Padded Products Finisher [facility] 08/27/2022,5:59 PM * Telephone Encounter - Heather Lora [facility] - 08/27/2022 11:58 AM EDT Pending Prescriptions: Disp Refills Baclofen 10 MG Oral Tablet (Lioresal) 90 Tab*3 Sig: Take by mouth 1 Tablet as needed in the morning AND 1 Tablet as needed at noon AND 1 Tablet as needed in the evening for Muscle spasms. traMADol HCl 100 MG Oral Tablet 90 Tab*0 Sig: take 1 tablet by mouth every 8 hours if needed for moderate pain to severe pain * Telephone Encounter - Heather Lora RPh - 08/27/2022 11:56 AM EDT I have reviewed the patients controlled substance dispensing history in the Prescription Drug Monitoring Program in compliance with the [facility] regulations before prescribing a controlled substance. PDMP checked on 08/27/2022. Pending Prescriptions: Disp Refills Baclofen 10 MG Oral Tablet (Lioresal) 90 Tab*3 Sig: Take by mouth 1 Tablet as needed in the morning AND 1 Tablet as needed at noon AND 1 Tablet as needed in the evening for Muscle spasms. traMADol HCl 100 MG Oral Tablet 90 Tab*0 Sig: take 1 tablet by mouth every 8 hours if needed for moderate pain to severe pain Last Visit: 01/23/2022 (in office), 03/14/2021 (telemedicine) Next Visit: 08/28/2022 Date medication was last filled: 07/30/2022 Date medication is due for refill: 08/28/2022 [facility]: [facility] #[id number] Is this request for a controlled [...] Results Review. Please approve if appropriate. Thanks, Heather Lora, PharmD, MS Clinical Pharmacist [facility] [phone] 08/27/2022 11:57 AM * Telephone Encounter - Heather Lora [facility] - 08/27/2022 11:56 AM EDT Pending Prescriptions: Disp Refills Baclofen 10 MG Oral Tablet (Lioresal) 90 Tab*3 Sig: Take by mouth 1 Tablet as needed in the morning AND 1 Tablet as needed at noon AND 1 Tablet as needed in the evening for Muscle spasms. traMADol HCl 100 MG Oral Tablet 90 Tab*0 Sig: take 1 tablet by mouth every 8 hours if needed for moderate pain t o severe pain * Telephone Encounter - Marilee Ho CPhT - 08/27/2022 11:15 AM EDT Pt calling to check status of baclofen and tramadol. Advised pt we are waiting for her provider to sign rx's. Asking high priority. Thank you, Marilee Ho Patrol [facility] 08/27/2022,11:18 AM * Telephone Encounter - Edita Loomis CPhT - 08/26/2022 10:39 AM EDT Did you pend patient's preferred pharmacy and medication before forwarding?yes [facility] [id number] [address] [id number] [facility] Pending Prescriptions: Disp Refills Baclofen 10 MG Oral Tablet (Lioresal) 90 Tab*3 Sig: Take by mouth 1 Tablet as needed in the morning AND 1 Tablet as needed at noon AND 1 Tablet as needed in the evening for Muscle spasms. traMADol HCl 100 MG Oral Tablet 90 Tab*0 Sig: take 1 tablet by mouth every 8 hours if needed for moderate pain to severe pain Last Visit: 01/23/2022 (in office), 03/14/2021 (telemedicine) Next Visit: 08/28/2022 If no future appointments scheduled, and last appointment is greater than a year ago, please schedule patient for a follow-up appointment Last date the medication was ordered: 02/16/2022, 07/29/2022 Is this request for a controlled substance?Yes, What was the last refill date 07/30/2022 w/ [id number] and dosage ?and Urine Drug Screen was completed Urine Drug Screen: Results for orders [...] found in Results Review. Patient Phone Numbers [facility] [phone] Labs: Lab Results Component Value Date/Time CREAT [...] Visit Family Medicine Roger Alexandra MD [address] [place] [address] 09/02/2022 Office Visit Otolaryngology Jazmine Whitehead PA-C [address] [place] [address] 09/08/2022 Laboratory Laboratory Processing [facility], [facility] Mobile Home Draw [address] [place], [place] [id number] 09/09/2022 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
--- OUTSIDE RECORDS SUMMARY | 2023-07-25 04:32 | External Medical Summary | Summary of Care ---
Author Name Unknown Organization [place] [address] Care Team Providers Care Senior Cytotechnologist Name Role Phone Roger Alexandra MD Primary Care Provider [phone] Reason for Referral * Evaluate & Treat - Unlimited Visits (Within 30 days (routine)) - Authorized Specialty Diagnoses / Procedures Referred By Anna t Referred To Contact Gastroenterology Diagnoses Globus sensation Roger Alexandra MD [address] [place] [address] Referral ID Status Reason Start Date Expiration Date Visits Requested Visits Authorized [id number] Authorized Specialty Services Required 2 999 999 Question Answer Referral Priority Within 30 days (routine) For what condition is the patient being referred? All Gastro Conditions Reason for Visit * Reason Onset Date Comments Hospital Follow-Up [facility] D/C 08/15 0 Hospital Follow-Up 08/28/2022 Encounter Details Date Type Department Care Team Description 08/28/2022 Office Visit Family [facility] [address] [place] [address] Roger Alexandra MD [address] [place] [address] Hospital discharge follow-up*; Chronic hypoxemic respiratory failure (HCC); Decreased functional mobility; Super obese; Depression with anxiety; PTSD (post-traumatic stress disorder); History of multiple strokes; Chronic diastolic CHF (congestive heart failure) ([facility]); Paroxysmal atrial fibrillation ([facility]); Acquired hypothyroidism; COPD, group D, by GOLD 2017 classification ([facility]); Obstructive sleep apnea; Need for influenza vaccination; Globus sensation; Encounter for screening mammogram for breast cancer Allergies Active Allergy Reactions Severity Noted Date Comments Aspirin Unknown 12/12/2007 von Willebrand's disease Salicylates 03/01/2000 von Willebrand's disease documented as of this encounter (statuses as of 08/28/2022) Medications Medication Sig Dispensed Refills Start Date [...] MG Oral Tablet (Coumadin)Indication s:Paroxysmal atrial fibrillation ([facility]) Take by mouth 1 Tablet in the evening. OR As directed by coumadin clinic. 90 Tablet 3 02/16/2022 Active Nystatin 450884 UNIT/GM External Powder (Nyamyc) apply to affected [...] as of this encounter (statuses as of 08/28/2022) Active Problems Problem Noted Date Decreased functional [...] as of this encounter (statuses as of 08/28/2022) Resolved Problems Problem Noted Date Resolved Date [...] as of this encounter (statuses as of 08/28/2022) Immunizations Name Administration Dates Next Due H1N1 [...] Chief Complaint Patient presents with Hospital Follow-Up [facility] D/C 08/24 Hospital Follow-Up Recent Admission: Patient was recently admitted to [facility]. The date of discharge was 08/24/22. Discharge [...] Z86.73 Chronic diastolic CHF (congestive heart failure) ([facility]) I50.32 PTSD (post-traumatic stress disorder) F43.10 COPD, group D, by GOLD 2017 classification ([facility]) J44.9 Chronic hypoxemic respiratory failure ([facility]) J96.11 History of narcotic addiction ([facility]) F11.21 Decreased functional mobility R26.89 Current Outpatient [...] Ellipta 100-62.5-25 MCG/INH Aerosol Powder Breath Activated (ytgqcwmudki-ffbhwdxsxpti-jnondseogv) Inhale by mouth 1 Puff in the morning. 60 Blister Dosing Unit 3 Warfarin Sodium 5 MG Oral Tablet (Coumadin) Take by mouth 1 Tablet in the evening. OR As directed by coumadin clinic. 90 Tablet 3 Nystatin 605575 UNIT/GM External Powder (Nyamyc) apply to affected [...] be more independent. She should continue PT Super obese Depression with anxiety PTSD (post-traumatic [...] Chief Complaint Patient presents with Hospital Follow-Up [facility] D/C 08/24 Patient here for f/u hosp D/C documented in this encounter Plan of Treatment Upcoming Encounters Date Type Specialty Care Team Description 09/02/2022 Office Visit Otol[facility]ology Jazmine Whitehead PA-C [facility] [place] [address] 09/08/2022 Laboratory Laboratory Processing [facility] Mobile Home Draw [address] [place] [address] 09/09/2022 [facility] [address] [place] [address] 10/12/2022 Telemedicine Psychiatry Hugo Alcantara MD [address] [place] [address] 12/02/2022 Office Visit Pulmonary [facility] [address] [facility] [place] [address] Scheduled Orders Name Type Priority Associated Diagnoses Orde r Schedule MAMMOGRAM SCREENING BILATERAL Medical Imaging Routine Encounter for screening mammogram for breast cancer Expected: 08/28/2022, Expires: 09/28/2023 Scheduled Procedures Name Priority Associated Diagnoses Date/Ti me COLONOSCOPY FLEXIBLE PROXIMAL DIAGNOSTIC Recall History of colon polyps Scheduled Referrals Name Type Priority Associated [...] ASSESSMENT COMPLETED IN PAST YEAR FOR COPD 08/27/2023 08/28/2022 Diabetes Screening 01/15/2025 01/15/2022, 0 01/08/2022, 01/03/2022, Additional history exists COLONOSCOPY-EVERY 5 YRS AGES 18-100 11/12/2025 11/12/2020, 05/22/2013, 08/21/2011, Additional history exists LUNG CANCER SCREENING - USE SMARTSET 06860 Completed 03/16/2022 Influenza Vaccine (FLU shot) Completed [...] as of this encounter Visit Diagnoses Diagnosis Hospital discharge [...] for breast cancer documented in this encounter Advance Directives Documents on File Type Date Recorded Patient Flight Radio Officer Expl 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 Advanced Directive 11/02/2011 12:00 AM Care Teams Senior Cytotechnologist Relationship Specialty Start Date End Date Roger Alexandra MD [address] [place] [address] PCP - General Family Medicine 12/29/19 documented as of this encounter
--- OUTSIDE RECORDS SUMMARY | 2023-07-25 04:32 | External Medical Summary | Summary of Care ---
Author Name Unknown Organization [place] [address] Care Team Providers Care Shopper Insights Manager Name Role Phone Roger Alexandra MD Primary Care Provider [phone] Reason for Visit * Reason Comments eRx-Medication Refill Encounter Details Date Type Department Care Team Description 08/26/2022 Refill Pharmacy Call Center [address] [place] [address] Roger Alexandra MD [address] [place] [address] Allergies Active Allergy Reactions Severity Noted Date [...] ications:COPD, group D, by GOLD 2017 classification ([facility]) Inhale by mouth 1 Puff in the [...] spasms. 90 Tablet 3 02/16/2022 Active Nystatin 512396 UNIT/GM External Powder (Nyamyc) apply to affected [...] 07/28/2022 Active traMADol HCl 100 MG Oral TabletIndications:Ch [...] as needed in the evening. 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 0 06/01/2005 [...] encounter Miscellaneous Notes * Telephone Encounter - Isaiah Beck RPh - 08/27/2022 11:56 AM EDT Refused Prescriptions: Disp Refills Baclofen 10 MG Oral Tablet (Lioresal) 90 Tab*3 Sig: take 1 tablet by mouth every morning if needed and 1 tablet by mouth AT NOON if needed IN THE EVENING FOR MUSCLE SPASMSRefused By: ISAIAH BECK for Refusal: Duplicate Request documented in this encounter Plan of Treatment Upcoming Encounters Date Type Specialty Care Team Description 08/28/2022 Office Visit Family Medicine Roger Alexandra MD [address] [place] [address] 09/02/2022 Office Visit Otolaryngology Jazmine Whitehead PA-C 132 [facility] [place] [address] 09/08/2022 Laboratory Laboratory Processing [facility], [facility] Mobile Home Draw [address] [place] [address] 09/09/2022 [facility] [address] [place] [address] 10/12/2022 Telemedicine Psychiatry Hugo Alcantara MD [address] [place] [address] 12/02/2022 Office Visit Pulmonary Jesus Bonilla MD [address] [place] [address] Scheduled Procedures Name Priority Associated [...] COMPLETED IN PAST YEAR FOR COPD 08/20/2023 08/20/2022 Diabetes Screening 01/15/2025 01/15/2022, 0 01/08/2022, 01/03/2022, Additional history exists COLONOSCOPY-EVERY 5 YRS AGES 18-100 11/12/2025 11/12/2020, 05/22/2013, 08/21/2011, Additional history exists LUNG CANCER SCREENING - USE SMARTSET 13140 Completed 03/16/2022 GARDASIL-HPV IMMUNIZATION SERIES Aged Out [...] Documents on File Type Date Recorded Patient Makeup Artist Expl 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
--- OUTSIDE RECORDS SUMMARY | 2023-07-25 04:32 | External Medical Summary | Summary of Care ---
Author Name Unknown Organization [place] [address] Care Team Providers Care Transactional Attorney Name Role Phone Roger Alexandra MD Primary Care Provider [phone] Reason for Visit * Reason Onset Date Comments Referral 08/28/2022 mammo/GI Encounter Details Date Type Department Care Team Description 08/28/2022 Telephone Family Practice [facility] [address] [place] [address] Roger Alexandra MD 132 [facility] [place] [address] Referral (mammo/GI) Allergies Active Allergy Reactions Severity Noted Date Comments Aspirin Unknown 12/12/2007 von Willebrand's disease Salicylates 03/01/2000 von Willebrand's disease documented as of this encounter (statuses as of 08/29/2022) Medications Medication Sig Dispensed Refills Start Date [...] ications:COPD, group D, by GOLD 2017 classification ([facility]) Inhale by mouth 1 Puff in the morning. 60 Blister Dosing Unit 3 02/13/2022 Active Warfarin Sodium 5 MG Oral Tablet (Coumadin)Indication s:Paroxysmal atrial fibrillation (HCC) Take by mouth 1 Tablet in the evening. OR As directed by coumadin clinic. 90 Tablet 3 02/16/2022 Active Nystatin 729120 UNIT/GM External Powder (Nyamyc) apply to affected [...] as of this encounter (statuses as of 08/29/2022) Active Problems Problem Noted Date Decreased functional [...] as of this encounter (statuses as of 08/29/2022) Resolved Problems Problem Noted Date Resolved Date [...] as of this encounter (statuses as of 08/29/2022) Immunizations Name Administration Dates Next Due H1N1 [...] Miscellaneous Notes * Telephone Encounter - RUFINA Barajas - 08/29/2022 10:17 AM EDT Reason for patient's call: returning call to [facility] gastro appts and mammo Caller was transferred to gastro inge line and instructed to inform them that she needs mammo inge after. * Telephone Encounter - RUFINA Garcia - 08/28/2022 1:33 PM EDT LM for pt to call to schedule with GI and her mammogram documented in this encounter Plan of Treatment Upcoming Encounters Date Type Specialty Care Team Description 09/02/2022 Office Visit Otolaryngology Jazmine Whitehead PA-C [address] [place] [address] 09/04/2022 Imaging Radiology 09/07/2022 Office Visit Gastroenterology Shaneka Santiago MD [address] [place] [address] 09/08/2022 Laboratory Laboratory Processing [facility], [facility] Mobile Home Draw [address] [place], [place] [address] 09/09/2022 [facility] [place] [address] [address] [place] [address] 10/12/2022 Telemedicine Psychiatry Hugo Alcantara MD [address] [place], [place] [address] 12/02/2022 Office Visit Pulmonary Jesus Bonilla MD [address] [place] [address] Scheduled Procedures Name Priority Associated Diagnoses Date/Ti [...] exists LUNG CANCER SCREENING - USE SMARTSET 13933 Completed 03/16/2022 Influenza Vaccine (FLU shot) Completed [...] Documents on File Type Date Recorded 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
--- OUTSIDE RECORDS SUMMARY | 2023-07-25 04:32 | External Medical Summary | Summary of Care ---
Author Name Unknown Organization [place] [address] Care Team Providers Care Web Interface Developer Name Role Phone Roger Alexandra MD Primary Care Provider [phone] Reason for Visit * Reason Comments eRx-Medication Refill Encounter Details Date Type Department Care Team Description 08/27/2022 Refill Family Practice [facility] 132 [facility] [place] [address] Roger Alexandra MD 132 [facility] [place] [id number] Chronic bilateral low back pain without sciatica [...] spasms. 90 Tablet 3 02/16/2022 Active Nystatin 002019 UNIT/GM External Powder (Nyamyc) apply to affected [...] 11:56 AM EDT Refused Prescriptions: Disp Refills traMADol HCl 100 MG Oral Tablet 90 Tab* Sig: take 1 tablet by mouth every 8 hours if needed for moderate pain to severe painRefused By: ISAIAH BECK for Refusal: Duplicate Request documented in this encounter Plan of Treatment Upcoming Encounters Date Type Specialty Care Team Description 08/28/2022 Office Visit Family Medicine Roger Alexandra MD [address] [place] [address] 09/02/2022 Office Visit Otolaryngology Jazmine Whitehead PA-C 132 [facility] [place] [address] 09/08/2022 Laboratory Laboratory Processing [facility], [facility] Mobile Home Draw [address] [place] [address] 09/09/2022 [facility] [address] [place] [address] 10/12/2022 Telemedicine Psychiatry Hugo Alcantara MD [address] [place] [address] 12/02/2022 Office Visit Pulmonary Jesus Bonilla MD [address] [place] [address] Scheduled Procedures Name Priority Associated [...] exists LUNG CANCER SCREENING - USE SMARTSET 28920 Completed 03/16/2022 GARDASIL-HPV IMMUNIZATION SERIES Aged Out [...] Documents on File Type Date Recorded Patient Elastic 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
--- OUTSIDE RECORDS SUMMARY | 2023-07-25 04:32 | External Medical Summary | Summary of Care ---
Author Name Unknown Organization [place] [address] Care Team Providers Care Front End Specialist Name Role Phone Roger Alexandra MD Primary Care Provider [phone] Reason for Visit * Reason Onset Date Comments Referral 08/28/2022 mammo/GI Encounter Details Date Type Department Care Team Description 08/28/2022 Telephone Family Practice [facility] [address] [place] [address] Roger Alexandra MD 132 [facility] [place] [address] Referral (mammo/GI) Allergies Active Allergy Reactions Severity [...] 2017 classification ([facility]) Inhale by mouth 1 Puff in the morning. 60 Blister Dosing Unit 3 02/13/2022 Active Warfarin Sodium 5 MG Oral Tablet (Coumadin)Indication s:Paroxysmal atrial fibrillation (HCC) Take by mouth 1 Tablet in the evening. OR As directed by coumadin clinic. 90 Tablet 3 02/16/2022 Active Nystatin 433165 UNIT/GM External Powder (Nyamyc) apply to affected area twice a day 15 g 1 05/19/2022 Active oxygen IN GASIndications:Chron ic hypoxemic respiratory failure (HCC),COPD, group D, by GOLD 2017 classification ([facility]) Use 2 LPM at rest, [...] Reason for patient's call: returning call to counts include 234 beds at the [facility] gastro appts and mammo Caller was transferred [...] Office Visit Otolaryngology Jazmine Whitehead PA-C [address] [place] [address] 09/04/2022 Imaging Radiology 09/07/2022 Office Visit Gastroenterology Shaneka Santiago MD [address] [place] [address] 09/08/2022 Laboratory Laboratory Processing [facility] Mobile Home Draw [address] [place], [place] [id number] 09/09/2022 [facility] [place] [address] [address] [place] [address] 10/12/2022 Telemedicine Psychiatry Hguo Alcantara MD [address] [place], [place] [address] 12/02/2022 Office Visit Pulmonary Jesus Bonilla MD [address] [place] [address] Scheduled Procedures Name Priority Associated Diagnoses Date/Ti [...] exists LUNG CANCER SCREENING - USE SMARTSET [id number] Completed 03/16/2022 Influenza Vaccine (FLU shot) Completed [...] Documents on File Type Date Recorded Patient Courtroom Deputy Expl 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 Advanced Directive 11/02/2011 12:00 AM Care Teams Front End Specialist Relationship Specialty Start Date End Date Roger Alexandra MD [address] [place] [address] PCP - General Family Medicine 12/29/19 documented as of this encounter
--- OUTSIDE RECORDS SUMMARY | 2023-07-25 04:32 | External Medical Summary | Summary of Care ---
Author Name Unknown Organization [place] [address] Care Team Providers Care Felt Cementer Name Role Phone Roger Alexandra MD Primary Care Provider [phone] Reason for Visit * Reason Comments [facility] Care Coordination Services Encounter Details Date Type Department Care Team Description 08/27/2022 Home Visit Care Coordination [address] [place] [address] Fawn Godfrey, Community Health Human Services Care Specialist [address] [place] [address] Allergies Active Allergy Reactions Severity Noted Date [...] ications:COPD, group D, by GOLD 2017 classification ([facility]) Inhale by mouth 1 [...] spasms. 90 Tablet 3 02/16/2022 Active Nystatin 708499 UNIT/GM External Powder (Nyamyc) apply to affected [...] Sign Reading Time Taken Comments Blood Pressure 120/62 08/27/2022 12:04 PM EDT Pulse 97 08/27/2022 12:04 PM EDT Temperature 36.6 C (97.8 F) 08/27/2022 12:04 PM E DT Respiratory Rate - - Oxygen Saturation 95% 08/27/2022 12:04 PM EDT Inhaled Oxygen Concentration - - Weight - - Height - - Body Mass Index - - documented in this encounter Progress Notes * Fawn Godfrey, Community Health Human Services Care Specialist - 08/27/2022 10:09 AM EDT Community Health Human Services Care Specialist Visit Date: 08/27/2022 Time: 10:09 AM Name: Kimberly Kendall : 1960 Referral Source: printing manager Source of Information: Patient Spoken language: burkinan Patient can read in Arabic: Yes. Director Search needed: No. COVID-19 screening completed: Yes Vitals: Vital signs completed: Yes, vital signs within normal range. BP 120/62 | Pulse 97 | Temp 36.6 C (97.8 F) | SpO2 95% Condition Changes: Changes in health or social status since last visit: no The patient has new concerns since last visit: No Progress towards goals since last visit: Granddaughter said she is doing better Medications: Medication review completed? Yes, gaps identified and escalated to nurse/provider: All medications in EPIC the patient is taking EXCEPT for ProAir inhaler Does the patient have barriers to medication adherence? No. Patient reports difficulty paying for medications or might in the future: No. Telehealth: This is a telehealth visit: No. Symptoms Surveys and Evaluations: MAHC10 completed this visit: Yes. Score is 4 or more? Yes, notified Provider/Clinical Engineer Last flowsheet values for MAHC10: Age 65+: 0 (08/27/2022 10:00 AM) Diagnosis (3 or more co-existing): 1 (08/27/2022 10:00 AM) Prior history of falls within 3 months: 0 (08/27/2022 10:00 AM) Incontinence: 1 (08/27/2022 10:00 AM) Visual impairment: 0 (08/27/2022 10:00 AM) Impaired functional mobility: 1 (08/27/2022 10:00 AM) Environmental hazards: 0 (08/27/2022 10:00 AM) Poly Pharmacy (4 or more prescriptions - any type): 1 (08/27/2022 10:00 AM) Pain affecting level of function: 1 (08/27/2022 10:00 AM) Cognitive impairment: 0 (08/27/2022 10:00 AM) Score - a score of 4 or more is considered at risk for fallin (08/27/2022 10:00 AM) Social Determinants of Health: Safety: o Patient reports feeling unsafe in their home: No. Housing: o Patient reports they are at risk of becoming homeless: No. Home/Living situation: o Patient lives alone: Yes-has waiver during the day but alone at night o Bathroom is located 1 o Bedroom is located 1 o Patient has to go up and down steps: No. Patient receives help from family/friends/neighbors/community agencies etc.: Yes. Type of help the patient receives: transportation and picking up food and RX Patient perceives the help they receive as adequate: o Yes. DME: o DME used: Walker, Wheelchair, O2, Bedside commode and Shower chair o Patient has concerns related to DME: No. Financial: o Patient reports experiencing a financial hardship: No. Employment: o Patient is unemployed or without [...] lonely or isolated from those around you? Rarely. Specify plan/referrals/care team members notified: misses her daughter and spouse due to Plan: Plan for the patient to follow up with PCP tomorrow and find out the name of her Clinical Engineer to contact if any problems. Patient seemed to be doing well. She said she is still SOB when walking around. Granddaughter who is with soumya stated she is doing better since coming home from the hospital. Home is very clean andorganized. Patient states she would like to have PT. When [facility] was leaving [facility] home health was coming in for their first visit. She has appt with PCP tomorrow and has some questions to ask him. One is that she used to have a nebulizer, but in her move years ago it was lost. She would like to have another one to use for her COPD. Patient does have a PERS, but just can't find it at this time. I told her she needs to have that for when soumya leaves at 4pm and she is alone. Patient has all of the medications in Epic except she is not using ProAir inhaler. Follow Up: Patient encouraged to call the intake phone number for all urgent but not emergent issues. Scheduled to follow up with patient as needed per CM/PCP. [facility] Care Specialist 08/27/2022 10:09 AM Electronically signed by Fawn Godfrey [facility] Human Services Care Specialist at 08/27/2022 12:35 PM EDT documented in this encounter Plan of Treatment Upcoming Encounters Date Type Specialty Care Team Description 08/28/2022 Office Visit Family Medicine Roger Alexandra MD [address] [place] [address] 09/02/2022 Office Visit Otolaryngology Jazmine Whitehead PA-C 132 [facility] 09/08/2022 Laboratory Laboratory Processing [facility] Mobile Home Draw [address] [place], [place] [id number] 09/09/2022 [facility] [address] [place] [address] 10/12/2022 Telemedicine Psychiatry Hugo Alcantara MD [address] [place] [address] 12/02/2022 Office Visit Pulmonary Jesus Bonilla MD [address] [place], [place] [phone] Scheduled Procedures Name Priority Associated Diagnoses Date/Ti [...] exists LUNG CANCER SCREENING - USE SMARTSET [id number] Completed 03/16/2022 GARDASIL-HPV IMMUNIZATION SERIES Aged Out [...] Documents on File Type Date Recorded Patient Passport Support Associate Expl 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 Advanced Directive 11/02/2011 12:00 AM Care Teams Felt Cementer Relationship Specialty Start Date End Date Roger Alexandra MD 132 [facility] [place] [address] PCP - General Family Medicine 12/29/19 documented as of this encounter"
--- OUTSIDE RECORDS SUMMARY | 2023-07-25 04:32 | External Medical Summary | Summary of Care ---
Author Name Unknown Organization [place] [address] Care Team Providers Care Supervisor [employer] Name Role Phone Roger Alexandra MD Primary Care Provider [phone] Reason for Referral * Evaluate & Treat - Unlimited Visits (Within 30 days (routine)) - Authorized Specialty Diagnoses / Procedures Referred By Anna t Referred To Contact Gastroenterology Diagnoses Globus sensation Roger Alexandra MD [address] [place] [address] Referral ID Status Reason Start Date Expiration Date Visits Requested Visits Authorized [id number] Authorized Specialty Services Required 2 999 999 Question Answer Referral Priority Within 30 days (routine) For what condition is the patient being referred? All Gastro Conditions Reason for Visit * Reason Onset Date Comments Hospital Follow-Up [facility] D/C 08/15 0 Hospital Follow-Up 08/28/2022 Encounter Details Date Type Department Care Team Description 08/28/2022 Office Visit Family [facility] [address] [place] [address] Roger Alexandra MD [address] [place] [address] Hospital discharge follow-up*; Chronic hypoxemic respiratory failure (HCC); Decreased functional mobility; Super obese; Depression with anxiety; PTSD (post-traumatic stress disorder); History of multiple strokes; Chronic diastolic CHF (congestive heart failure) ([facility]); Paroxysmal atrial fibrillation ([facility]); Acquired hypothyroidism; COPD, group D, by GOLD 2017 classification ([facility]); Obstructive sleep apnea; Need for [...] 2017 classification ([facility]) Inhale by mouth 1 Puff in the morning. 60 Blister Dosing Unit 3 02/13/2022 Active Warfarin Sodium 5 MG Oral Tablet (Coumadin)Indication s:Paroxysmal atrial fibrillation ([facility]) Take by mouth 1 Tablet in the evening. OR As directed by coumadin clinic. 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 The date of discharge was 08/24/22. Discharge [...] diastolic CHF (congestive heart failure) ([facility]) I50.32 PTSD (post-traumatic stress disorder) F43.10 COPD, group D, by GOLD 2017 classification ([facility]) J44.9 Chronic hypoxemic respiratory failure ([facility]) J96.11 History of narcotic addiction ([facility]) F11.21 Decreased functional mobility R26.89 [...] Ellipta 100-62.5-25 MCG/INH Aerosol Powder Breath Activated (xbzekjrdbvd-seekxqjukgtk-yqduxjuxlx) Inhale by mouth 1 Puff in the morning. 60 Blister Dosing Unit 3 Warfarin Sodium 5 MG Oral Tablet (Coumadin) Take by mouth 1 Tablet in the evening. OR As directed by coumadin clinic. 90 Tablet 3 Nystatin 568362 UNIT/GM External Powder (Nyamyc) apply to affected [...] Chief Complaint Patient presents with Hospital Follow-Up [facility] D/C 08/24 Patient here for f/u hosp D/C documented in this encounter Plan of Treatment Upcoming Encounters Date Type Specialty Care Team Description 09/02/2022 Office Visit Otol[facility]ology Jazmine [facility]head PA-C [address] [facility] [place] [address] 09/08/2022 Laboratory Laboratory Processing [facility] [place] Mobile Home Draw [address] [place] [address] 09/09/2022 [facility] [address] [place] [address] 10/12/2022 Telemedicine Psychiatry Hugo Alcantara MD [address] [place] [address] 12/02/2022 Office Visit Pulmonary Jesus Bonilla MD [address] [facility] [place] [address] Scheduled Orders Name Type Priority Associated Diagnoses [...] exists LUNG CANCER SCREENING - USE SMARTSET 53804 Completed 03/16/2022 Influenza Vaccine (FLU shot) Completed [...] Documents on File Type Date Recorded Patient Design Engineering Specialist Expl 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 Advanced Directive 11/02/2011 12:00 AM Care Teams Supervisor [employer] Relationship Specialty Start Date End Date Roger Alexandra MD [address] [place] [address] PCP - General Family Medicine 12/29/19 documented as of this encounter
--- OUTSIDE RECORDS SUMMARY | 2023-07-25 04:33 | External Medical Summary | Summary of Care ---
Author Name Unknown Organization [place] [address] Care Team Providers Care Certified Retinal Angiographer Name Role Phone Roger Alexandra MD Primary Care Provider [phone] [phone] Reason for Visit * Reason Comments Dosage Adjustment Via Phone (anticoag Cl inic) Encounter Details Date Type Department Care Team Description 08/12/2022 Anticoagulation Pharmacy Call Center [address] [facility] [place] [address] [facility] [address] [place] [address] computer terminal operator current use 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* Allergies Active Allergy Reactions Severity Noted Date Comments Aspirin Unknown 12/12/2007 von Willebrand's disease Salicylates 03/01/2000 von Willebrand's disease documented as of this encounter (statuses as of 08/12/2022) Medications Medication Sig Dispensed Refills Start Date [...] spasms. 90 Tablet 3 02/16/2022 Active Nystatin 540135 UNIT/GM External Powder (Nyamyc) apply to affected area twice a day 15 g 1 05/19/2022 Active oxygen IN GASIndications:Chron ic hypoxemic respiratory failure (HCC),COPD, group D, by GOLD 2017 classification ([facility]) Use 2 LPM at rest, 4 LPM with exertion and with sleep. 1 Each 0 2022 Active busPIRone HCl 10 MG Oral Tablet (Buspar) Take by mouth 2 Tablets in the morning AND 2 Tablets before bedtime. 120 Tablet 1 06/22/2022 Active Isosorbide Mononitrate ER 30 MG Oral [...] 13, 2022. 90 Tablet 1 08/13/2022 Active Hospital, Clinic, or Other Facility Administered [...] as of this encounter (statuses as of 08/12/2022) Active Problems Problem Noted Date History of [...] as of this encounter (statuses as of 08/12/2022) Resolved Problems Problem Noted Date Resolved Date [...] as of this encounter (statuses as of 08/12/2022) Immunizations Name Administration Dates Next Due H1N1 [...] Progress Notes * Kim Mercado RPh - 08/12/2022 12:50 PM EDT Noted, no known interaction. Continue as planned. Kim Mercado Rph, Pharm.D. Clinical Pharmacist Telepharmacy [phone] 08/12/2022,12:54 PM * Luis Nava CPhT - 08/12/2022 12:32 PM EDT Contacts Type Contact Phone 08/12/2022 12:30 PM EDT Phone (Outgoing) Kimberly Kendall (Self) [phone] (M) Patient Findings Positives: Change in medications (taking gabapentin 300mg at bedtime ) Negatives: Signs/symptoms of thrombosis, Signs/symptoms of bleeding, [...] Yes and MyG sent Luis Nava CPhT 08/12/2022, 12:32 PM * Kim Mercado RPh - 08/12/2022 9:21 AM EDT Coumadin Clinic (region specific) Current Warfarin Dose As of 08/12/2022 Warfarin maintenance plan: 5 mg (5 mg x 1) every day INR Result As of 08/12/2022 INR goal: 2.0-3.0 INR used for dosin.0 (08/11/2022) Warfarin Plan As of 08/12/2022 Full warfarin instructions: 5 mg every day No change documented: Kim Mercado RPh Next INR check: 09/08/2022 Repeat PT/INR in 4 week(s) Weekly dose: not changed Additional Dosing Information: Description [facility] Also sent MyG after trying to call Tech to contact patient with dose instructions as noted. Kmi Mercado RPh 08/12/2022, 9:23 AM documented in this encounter Plan of Treatment Upcoming Encounters Date Type Specialty Care Team Description 09/02/2022 Office Visit Otolaryngology Jazmine Whitehead PA-C [address] [facility] [place] [address] 09/08/2022 Laboratory Laboratory Processing [facility] [place] Mobile Home Draw [address] [place] [address] 09/09/2022 [facility] [address] [place] [address] 10/12/2022 Telemedicine Psychiatry Hugo Alcantara MD [address] [place] [address] 12/02/2022 Office Visit Pulmonary [facility] Bonilla MD [address] [facility] [place] [address] Scheduled Procedures Name Priority Associated Diagnoses Date/Ti [...] ASSESSMENT COMPLETED IN PAST YEAR FOR COPD 2023 2022 Diabetes Screening 01/15/2025 01/15/2022, 0 01/08/2022, 01/03/2022, Additional history exists COLONOSCOPY-EVERY 5 YRS AGES 18-100 11/12/2025 11/12/2020, 05/22/2013, 08/21/2011, Additional history exists LUNG CANCER SCREENING - USE SMARTSET [id number] Completed 03/16/2022 GARDASIL-HPV IMMUNIZATION SERIES Aged Out [...] as of this encounter Visit Diagnoses Diagnosis computer terminal operator current use 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- Primary documented in this encounter Advance Directives Documents on File Type Date Recorded Patient Peer Tutor Expl 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 Advanced Directive 11/02/2011 12:00 AM Care Teams Certified Retinal Angiographer Relationship Specialty Start Date End Date Roger Alexandra MD [address] [place] [address] [place] [address] PCP - General Family Medicine 12/29/19 documented as of this encounter
--- OUTSIDE RECORDS SUMMARY | 2023-07-25 04:33 | External Medical Summary | Summary of Care ---
Author Name Unknown Organization [place] [address] Care Team Providers Care Manager Plant Name Role Phone Roger Alexandra MD Primary Care Provider [phone] Reason for Visit * Reason Comments case management CM comp/RAYSHAWN comp Encounter Details Date Type Department Care Team Description 08/25/2022 Family Law SpecialistHot [facility] [address] [place], [place] [id number] Kayla Hobbs, RN [address] [place] [address] COPD, group D, by GOLD 2017 classification ([facility])* Allergies Active Allergy Reactions Severity Noted Date Comments Aspirin Unknown 12/12/2007 von Willebrand's disease Salicylates 03/01/2000 von Willebrand's disease documented as of this encounter (statuses as of 08/25/2022) Medications Medication Sig Dispensed Refills Start Date [...] ications:COPD, group D, by GOLD 2017 classification ([facility]) Inhale by mouth 1 Puff [...] spasms. 90 Tablet 3 02/16/2022 Active Nystatin 609128 UNIT/GM External Powder (Nyamyc) apply to affected [...] as of this encounter (statuses as of 08/25/2022) Active Problems Problem Noted Date History of [...] as of this encounter (statuses as of 08/25/2022) Resolved Problems Problem Noted Date Resolved Date [...] as of this encounter (statuses as of 08/25/2022) Immunizations Name Administration Dates Next Due H1N1 [...] as of this encounter Progress Notes * Kayla Hobbs RN - 08/25/2022 10:30 AM EDT Family Law Specialist Progress Note: Date: 08/25/22 Current Patient Tier: 2 Assessment: Case Management Assessment Is this call for a [place], [place] [facility] or [facility]hab facility discharge to home? Yes Pt admitted to [facility] 08/20/22-08/24/22 d/t COPD exacerbation. new medications on discharge mucinex Q12hr, prednisone x6 days and hydroxazine prn. [facility] home health to provide home health. PCP follow up 08/28/22. Review of Current goals: CM comp/RAYSHAWN comp-Connected with patient via telephone. Pt. Noted the following: Pt lives alone has caregiver 8am-4pm M-F. Granddaughter Laura is her caregiver through [employer]. She requires assist w/ ADLs, meal prep and medication management. Caregiver provider transportation. Has and uses walker, BSC, home O2 and shower chair. Has wheelchair if needed. Home O2 provided by [employer]. Does not have any ACP but is agreeable to CM sending documents. Denies falls in the last 12 months. Follows w/ Dr. Irene Davis. SOB w/ any activity and even when talking a lot. 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 Sleeps in bed w/ 2pillows. Cough has improved since admission and she denies concerns at this time. Admits to headache since illness started last week. Also reports light headedness/dizziness intermittently but unableto provide specific information. Pt became overwhelmed and CM completed assessment w/ granddaughter, Laura. Baseline ankle edema has prn lasix daily for edema. Is incontinent of urine at baseline. Denies CP, GI/ concerns or skin integrity concerns. Denies CM needs at this time. PCP follow up 08/28/22 Discussed the following patient-centered CM goals with the patient during this discussion: -COPD: Achieve successful management of COPD -Status: At Risk discharged from [facility] 08/24/22. -Behavioral Health: Patient will have referral for treatment and counseling -Status: Not Started will make referral. -SAFETY: Prevent falls or injuries -Status: On Track will request [facility] safety eval. Plan for Future Contacts: Plan to follow up early next week to check progress on the following goals/needs IVR next week. Noting that contacts from the following parties will occur this week: [facility] Fiberglass Product Tester, Behavioral Health CM and PCP office visit as additional contacts per [...] Is Provider in agreement with POC? Yes Kayla Hobbs RN Outpatient Case Management documented in this encounter Plan of Treatment Upcoming Encounters Date Type Specialty Care Team Description 08/28/2022 Office Visit Family Medicine Roger Alexandra MD [address] [place] [address] 09/02/2022 Office Visit Otolaryngology Jazmine Whitehead PA-C [facility] [place] [address] 09/08/2022 Laboratory Laboratory Processing [facility] Mobile Home Draw [address], [place] [id number] 09/09/2022 [facility] [address] [place] [address] 10/12/2022 Telemedicine Psychiatry Hugo Alcantara MD [address] [place] [address] 12/02/2022 Office Visit Pulmonary Jesus Bonilla MD [address] [place] [address] Scheduled Procedures Name Priority Associated [...] exists LUNG CANCER SCREENING - USE SMARTSET 73521 Completed 03/16/2022 GARDASIL-HPV IMMUNIZATION SERIES Aged Out [...] classification (HCC)- Primary documented in this encounter Advance Directives Documents on File Type Date Recorded Patient Speech Correction Assistant Expl 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 Advanced Directive 11/02/2011 12:00 AM Care Teams Manager Plant Relationship Specialty Start Date End Date Roger Alexandra MD [address] [place] [address] PCP - General Family Medicine 12/29/19 documented as of this encounter
--- OUTSIDE RECORDS SUMMARY | 2023-07-25 04:33 | External Medical Summary | Summary of Care ---
Author Name Unknown Organization [place] [address] Care Team Providers Care Customer Service Advisor Name Role Phone Roger Alexandra MD Primary Care Provider [phone] Reason for Visit * Reason Onset Date Comments Information 08/24/2022 Encounter Details Date Type Department Care Team Description 08/24/2022 Telephone Family Practice [facility] 132 [facility] [place] [address] Roger Alexandra MD 132 [facility] [place] [address] Information Allergies Active Allergy Reactions Severity Noted Date Comments Aspirin Unknown 12/12/2007 von Willebrand's disease Salicylates 03/01/2000 von Willebrand's disease documented as of this encounter (statuses as of 08/24/2022) Medications Medication Sig Dispensed Refills Start Date [...] GOLD 2017 classification ([facility]) Inhale by mouth 1 Puff in the [...] spasms. 90 Tablet 3 02/16/2022 Active Nystatin 142742 UNIT/GM External Powder (Nyamyc) apply to affected area twice a day 15 g 1 05/19/2022 Active oxygen IN GASIndications:Chron ic hypoxemic respiratory failure (HCC),COPD, group D, by GOLD 2017 classification ([facility]) Use 2 LPM at rest, 4 LPM [...] as of this encounter (statuses as of 08/24/2022) Active Problems Problem Noted Date History of [...] as of this encounter (statuses as of 08/24/2022) Resolved Problems Problem Noted Date Resolved Date [...] as of this encounter (statuses as of 08/24/2022) Immunizations Name Administration Dates Next Due H1N1 [...] Miscellaneous Notes * Telephone Encounter - DANIEL Cadena - 08/24/2022 10:40 AM EDT Patient calling to see when they can call in their request for the Tramadol. I told her on the August. Patient will call back then. Caitlin Mancilla Art Studio Teacher [facility]armacy 08/24/2022 10:41 AM documented in this encounter Plan of Treatment Upcoming Encounters Date Type Specialty Care Team Description 09/02/2022 Office Visit Otolaryngology Jazmine Whitehead PA-C 132 [facility] [place] [address] 09/08/2022 Laboratory Laboratory Processing [facility] Mobile Home Draw [address] [place] [address] 09/09/2022 [facility] [address] [place] [address] 10/12/2022 Telemedicine Psychiatry Hugo Alcantara MD [address] [place] [address] 12/02/2022 Office Visit Pulmonary Jesus Bonilla MD [address] [place] [place] [address] Scheduled Procedures Name Priority Associated Diagnoses Date/Ti [...] exists LUNG CANCER SCREENING - USE SMARTSET 26429 Completed 03/16/2022 GARDASIL-HPV IMMUNIZATION SERIES Aged Out [...] Documents on File Type Date Recorded Patient Turn Down Man Expl 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 Advanced Directive 11/02/2011 12:00 AM Care Teams Customer Service Advisor Relationship Specialty Start Date End Date Roger Alexandra MD 132 [facility] [place] [address] PCP - General Family Medicine 12/29/19 documented as of this encounter
--- OUTSIDE RECORDS SUMMARY | 2023-07-25 04:33 | External Medical Summary | Summary of Care ---
Author Name Unknown Organization [place] [address] Care Team Providers Care Environmental Monitoring Specialist Name Role Phone Roger Alexandra MD Primary Care Provider [phone] Encounter Details Date Type Department Care Team Description 08/20/2022 Scan Encounter [facility] 132 [facility] [place] [id number] Roger Alexandra MD 132 [facility] [place] [address] <No scans attached> Allergies Active Allergy Reactions [...] ications:COPD, group D, by GOLD 2017 classification ([facility]) Inhale by mouth 1 Puff in [...] spasms. 90 Tablet 3 02/16/2022 Active Nystatin 771832 UNIT/GM External Powder (Nyamyc) apply to affected [...] Otolaryngology Jazmine Whitehead PA-C [address] [facility] [place] [address] 09/08/2022 Laboratory Laboratory Processing [facility] [facility] Mobile Home Draw [address] [place] [address] 09/09/2022 [facility] [address] [place] [address] 10/12/2022 Telemedicine Psychiatry Hugo Alcantara MD [address] [place] [address] 12/02/2022 Office Visit Pulmonary Jesus Bonilla MD [address] [place] [address] Scheduled Procedures Name Priority Associated [...] exists LUNG CANCER SCREENING - USE SMARTSET 74344 Completed 03/16/2022 GARDASIL-HPV IMMUNIZATION SERIES Aged Out [...] Documents on File Type Date Recorded Patient Medical Accounting Clerk Expl 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 Advanced Directive 11/02/2011 12:00 AM Care Teams Environmental Monitoring Specialist Relationship Specialty Start Date End Date Roger Alexandra MD [address] [place] [address] [place] [address] PCP - General Family Medicine 12/29/19 documented as of this encounter
--- OUTSIDE RECORDS SUMMARY | 2023-07-25 04:33 | External Medical Summary ---
Author Name Unknown Address Unknown Organization K0G[facility] [address] [place] [address] Laboratory Report Ordering Provider Test Date Status SUMAN STANFORD 08/11/2022 11:14:00 Final Observation Date Value Abnormality Reference (Units ) Status PT 08/11/2022 11:14:00 23.1 Above high normal 11 .6-15.2 (seconds) Final INR 08/11/2022 11:14:00 2.0 Above high normal 0. 8-1.2 Final Performing Location [facility] [place] [address] [place] [address]
--- OUTSIDE RECORDS SUMMARY | 2023-07-25 04:33 | External Medical Summary | Summary of Care ---
Author Name Unknown Organization [place] [address] Care Team Providers Care Hull And Deck Remover Name Role Phone Roger Alexandra MD Primary Care Provider [phone] Encounter Details Date Type Department Care Team Description 08/20/2022 Scan Encounter [facility] 132 [facility] [place] [phone] Roger Alexandra MD 132 [facility] [place] [address] <No scans attached> Allergies Active Allergy Reactions [...] GOLD 2017 classification ([facility]) Inhale by mouth 1 Puff in the [...] spasms. 90 Tablet 3 02/16/2022 Active Nystatin 081122 UNIT/GM External Powder (Nyamyc) apply to affected [...] Office Visit Otolaryngology Jazmine Whitehead PA-C [address] [facility] [place] [address] 09/08/2022 Laboratory Laboratory Processing [facility] Mobile Home Draw [address] [place] [address] 09/09/[address] [facility] [address] [place] [address] 10/12/2022 Telemedicine Psychiatry Hugo Alcantara MD [address] [place] [address] 12/02/2022 Office Visit Pulmonary Jesus Bonilla MD [address] [place] [address] Scheduled Procedures Name Priority Associated [...] exists LUNG CANCER SCREENING - USE SMARTSET 06746 Completed 03/16/2022 GARDASIL-HPV IMMUNIZATION SERIES Aged Out [...] Documents on File Type Date Recorded Patient Field Appraiser Expl 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 Advanced Directive 11/02/2011 12:00 AM Care Teams Hull And Deck Remover Relationship Specialty Start Date End Date Roger Alexandra MD [address] [place] [address] [place] [address] PCP - General Family Medicine 12/29/19 documented as of this encounter
--- OUTSIDE RECORDS SUMMARY | 2023-07-25 04:33 | External Medical Summary | Summary of Care ---
Author Name Unknown Organization [place] [address] Care Team Providers Care General Counselor Name Role Phone Roger Alexandra MD Primary Care Provider [phone] Reason for Visit * Reason Onset Date Comments Medication Question 08/24/2022 Encounter Details Date Type Department Care Team Description 08/24/2022 Telephone Psychiatry, [place] [address] [place] [address] Hugo Alcantara MD [address] [place] [address] Medication Question Allergies Active Allergy Reactions Severity [...] GOLD 2017 classification ([facility]) Inhale by mouth 1 Puff in [...] spasms. 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 She is asking for a prn use for anxiety. documented in this encounter Plan of Treatment Upcoming Encounters Date Type Specialty Care Team Description 09/02/2022 Office Visit Otolaryngology Jazmine Whitehead PA-C 132 [facility] [place] [address] 09/08/[address] [facility], [facility] Mobile Home Draw [address] [place] [address] 09/09/2022 [facility] [address] [place] [address] 10/12/2022 Telemedicine Psychiatry Hugo Alcantara MD [address] [place] [address] 12/02/2022 Office Visit Pulmonary Jesus Bonilla MD [address] [facility] [place] [address] Scheduled Procedures Name Priority Associated Diagnoses Date/Ti [...] COMPLETED IN PAST YEAR FOR COPD 2023 08/20/2022 Diabetes Screening 01/15/2025 01/15/2022, 0 01/08/2022, 01/03/2022, Additional history exists COLONOSCOPY-EVERY 5 YRS AGES 18-100 11/12/2025 11/12/2020, 05/22/2013, 08/21/2011, Additional history exists LUNG CANCER SCREENING - USE SMARTSET 32188 Completed 03/16/2022 GARDASIL-HPV IMMUNIZATION SERIES Aged Out [...] Documents on File Type Date Recorded Patient Special Makeup Fx Artist Instructor Expl 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 Advanced Directive 11/02/2011 12:00 AM Care Teams General Counselor Relationship Specialty Start Date End Date Roger Alexandra MD 132 [facility] [place] [address] PCP - General Family Medicine 12/29/19 documented as of this encounter
--- OUTSIDE RECORDS SUMMARY | 2023-07-25 04:33 | External Medical Summary | Summary of Care ---
Author Name Unknown Organization [place] [address] Care Team Providers Care Director Of Corporate Real Estate Name Role Phone Roger Alexandra MD Primary Care Provider [phone] Reason for Visit * Reason Onset Date Comments Medication Question 08/24/2022 Encounter Details Date Type Department Care Team Description 08/24/2022 Telephone Psychiatry, [place] [address] [place] [address] Hugo Alcantara MD [address] [place] [address] Medication Question Allergies Active Allergy Reactions Severity [...] ndications:COPD, group D, by GOLD 2017 classification ([facility]) Inhale by mouth 1 Puff in [...] spasms. 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 current use 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 0 06/01/2005 [...] Encounters Date Type Specialty Care Team Description 08/27/2022 Home Visit Family Medicine Fawn Godfrey, [facility] Associate Professor Of Biblical Studies [address] [place] [address] 08/28/2022 Office Visit Family Medicine Roger Alexandra MD [address] [place] [address] 09/02/2022 Office Visit Otolaryngology Jazmine Whitehead PA-C [address] [place] [address] 09/08/2022 Laboratory Laboratory Processing [facility], [facility] Mobile Home Draw [address] [place] [address] 09/09/2022 [facility] 58 60 [facility] [place] [address] 10/12/2022 Telemedicine Psychiatry Hugo Alcantara MD 100 [address] [facility] [place] [address] 12/02/2022 Office Visit Pulmonary Jesus Bonilla MD [address] [facility] [place] [address] Scheduled Procedures Name Priority Associated Diagnoses [...] exists LUNG CANCER SCREENING - USE SMARTSET [address] Completed 03/16/2022 GARDASIL-HPV IMMUNIZATION SERIES Aged Out [...] Documents on File Type Date Recorded Patient Diaphragm Builder Expl 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 Advanced Directive 11/02/2011 12:00 AM Care Teams Director Of Corporate Real Estate Relationship Specialty Start Date End Date Roger Alexandra MD 132 [facility] [place] [address] PCP - General Family Medicine 12/29/19 documented as of this encounter
--- OUTSIDE RECORDS SUMMARY | 2023-07-25 04:33 | External Medical Summary | Summary of Care ---
Author Name Unknown Organization [place] [address] Care Team Providers Care Medical Social Worker Name Role Phone Roger Alexandra MD Primary Care Provider [phone] Reason for Visit * Reason Onset Date Comments Medication Refill 08/11/2022 Encounter Details Date Type Department Care Team Description 08/11/2022 Refill [facility] [place] [address] [place] [address] Hugo Alcantara MD [address] [place] [address] Allergies Active Allergy Reactions Severity Noted Date Comments Aspirin Unknown 12/12/2007 von Willebrand's disease Salicylates 03/01/2000 von Willebrand's disease documented as of this encounter (statuses as of 08/11/2022) Medications Medication Sig Dispensed Refills Start Date [...] ndications:COPD, group D, by GOLD 2017 classification ([facility]) Inhale by mouth 1 Puff in the [...] spasms. 90 Tablet 3 02/16/2022 Active Nystatin 393198 UNIT/GM External Powder (Nyamyc) apply to affected area twice a day 15 g 1 05/19/2022 Active oxygen IN GASIndications:Stave Jointer 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 respiratory failure (HCC),COPD, group D, by GOLD 2017 classification ([facility]) Use 2 LPM at rest, 4 [...] 13, 2022. 90 Tablet 1 08/13/2022 Active LORazepam 0.5 MG Oral Tablet (Ativan) Take by mouth 1 Tablet as needed in the morning AND 1 Tablet as needed at noon AND 1 Tablet as needed in the evening for Anxiety. 90 Tablet 1 06/15/2022 2 Discontinue d(Refill) Hospital, Clinic, or Other [...] as of this encounter (statuses as of 08/11/2022) Active Problems Problem Noted Date History of [...] as of this encounter (statuses as of 08/11/2022) Resolved Problems Problem Noted Date Resolved Date [...] as of this encounter (statuses as of 08/11/2022) Immunizations Name Administration Dates Next Due H1N1 [...] encounter Miscellaneous Notes * Telephone Encounter - Hguo Alcantara MD - 08/11/2022 10:58 AM EDT Signed Prescriptions: Disp Refills LORazepam 0.5 MG Oral Tablet (Ativan) 90 Tab*1 Sig: Take by mouth 1 Tablet as needed in the morning AND 1 Tablet as needed at noon AND 1 Tablet as needed in the evening for Anxiety. Do not start before August 13, 2022.Authorizing Provider: HUGO ALCANTARA Y * Telephone Encounter - Blanche Wilcox LPN - 08/11/2022 10:31 AM EDT Patient calling for refill on Lorazapam. Medication was last filled on 06/15/22 with 1 refills. Patient last seen on 08/03/22 with return appointment scheduled for 09/2822. Patient had 0 cancelled appointments and 0 NO SHOW appointments. documented in this encounter Plan of Treatment Upcoming Encounters Date Type Specialty Care Team Description 08/12/2022 [facility] 58 60 [facility] [place] [address] 09/02/2022 Office Visit Otolaryngology Jazmine Whitehead PA-C 132 [facility] [place] [address] 10/12/2022 Telemedicine Psychiatry Hugo Alcantara MD [address] [place] [facility] [place] [address] 12/02/2022 Office Visit Pulmonary Jesus Bonilla MD [address] [facility] [place] [address] Scheduled Procedures Name Priority Associated Diagnoses [...] exists LUNG CANCER SCREENING - USE SMARTSET [address]48[address] Completed 03/16/2022 GARDASIL-HPV IMMUNIZATION SERIES Aged Out [...] Documents on File Type Date Recorded Patient Printed Circuit Board Layout Designer Expl 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
--- OUTSIDE RECORDS SUMMARY | 2023-07-25 04:33 | External Medical Summary | Summary of Care ---
Author Name Unknown Organization [place] [address] Care Team Providers Care Occupational Health Physiotherapist Name Role Phone Roger Alexandra MD Primary Care Provider [phone] [phone] Encounter Details Date Type Department Care Team Description 08/24/2022 Scan Encounter [facility] 132 [facility] [place] [id number] Roger Alexandra MD 132 [facility] [place] [address] <No scans attached> Allergies Active Allergy Reactions [...] ications:COPD, group D, by GOLD 2017 classification ([place] [...] spasms. 90 Tablet 3 02/16/2022 Active Nystatin 181680 UNIT/GM External Powder (Nyamyc) apply to affected [...] before bedtime. 120 Tablet 1 08/24/2022 Active Hospital, Clinic, or Other Facility Administered [...] Visit Family Medicine Roger Alexandra MD 132 [facility] [place] [address] 09/02/2022 Office Visit Otolaryngology Jazmine Whitehead PA-C [address] [facility] [place] [address] 09/08/2022 Laboratory Laboratory Processing [facility] Mobile Home Draw [address] [place] [address] 09/09/2022 [facility] [address] [address] [place] [address] 10/12/2022 Telemedicine Psychiatry Hugo Alcantara MD [address] [place] [address] 12/02/2022 Office Visit Pulmonary Jesus Bonilla MD [address] [place] [id number] Scheduled Procedures Name Priority Associated Diagnoses Date/Ti [...] exists LUNG CANCER SCREENING - USE SMARTSET 75114 Completed 03/16/2022 GARDASIL-HPV IMMUNIZATION SERIES Aged Out [...] Documents on File Type Date Recorded 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
--- OUTSIDE RECORDS SUMMARY | 2023-07-25 04:33 | External Medical Summary | Summary of Care ---
Author Name Unknown Organization [place] [address] Care Team Providers Care Energy Professional Name Role Phone Roger Alexandra MD Primary Care Provider [phone] [phone] Reason for Visit * Reason Onset Date Comments Medication Refill 08/24/2022 Encounter Details Date Type Department Care Team Description 08/24/2022 Refill [facility] [place] [address] [place] [address] Hugo Alcantara MD [address] [place] [address] Allergies Active Allergy Reactions Severity Noted Date [...] spasms. 90 Tablet 3 02/16/2022 Active Nystatin 040055 UNIT/GM External Powder (Nyamyc) apply to affected area twice a day 15 g 1 05/19/2022 Active oxygen IN GASIndications:Director Of Corporate Real Estate 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 respiratory failure (HCC),COPD, group D, [...] before bedtime. 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 Authorizing Provider: HUGO ALCANTARA * Telephone Encounter - Blanche Wilcox LPN - 08/24/2022 2:39 PM EDT Pharmacy requesting refill on Buspar. Medication was last filled on 06/22/22 with 1 refills. Patient last seen on 08/03/22 with return appointment scheduled for 10/12/22. Patient had 0 cancelled appointments and 0 NO SHOW appointments. documented in this encounter Plan of Treatment Upcoming Encounters Date Type Specialty Care Team Description 08/28/2022 Office Visit Family Medicine Roger Alexandra MD 132 [place] [address] 09/02/2022 Office Visit Otolaryngology Jazmine Whitehead PA-C 132 [place] [place] [address] 09/08/2022 Laboratory Laboratory Processing [facility], [facility] Mobile Home Draw [address] [place] [address] 09/09/2022 [facility] [address] [place] [address] 10/12/2022 Telemedicine Psychiatry Hugo Alcantara MD [address] [place] [address] 12/02/2022 Office Visit Pulmonary Jesus Bonilla MD [address] [place] [address] Scheduled Procedures Name Priority Associated [...] exists LUNG CANCER SCREENING - USE SMARTSET 52009 Completed 03/16/2022 GARDASIL-HPV IMMUNIZATION SERIES Aged Out [...] Documents on File Type Date Recorded Patient Business Intern Expl 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 Advanced Directive 11/02/2011 12:00 AM Care Teams Energy Professional Relationship Specialty Start Date End Date Roger Alexandra MD [address] [place] [address] PCP - General Family Medicine 12/29/19 documented as of this encounter
--- OUTSIDE RECORDS SUMMARY | 2023-07-25 04:34 | External Medical Summary | Summary of Care ---
Author Name Unknown Organization [place] [address] Care Team Providers Care Cigar Making Supervisor Name Role Phone Jeevan Mclean MD Primary Care Provider [phone] [phone] Reason for Visit * Reason Onset Date Comments eRx-Medication Refill Medication Refill 07/30/2022 Encounter Details Date Type Department Care Team Description 07/29/2022 Refill Family [facility] 132 [facility] [place] [address] Jeevan Mclean MD 132 [facility] [place] [address] Chronic bilateral low back pain without sciatica Allergies Active Allergy Reactions Severity Noted Date Comments Aspirin Unknown 12/12/2007 von Willebrand's disease Salicylates 03/01/2000 von Willebrand's disease documented as of this encounter (statuses as of 07/30/2022) Medications Medication Sig Dispensed Refills Start Date End Date Status Disposable Brief X-LargeIndications: Overactive bladder Attends X-Large Super Absorb Underwear 32 Each 2 1 Active Vitamin D (Cholecalciferol) 25 MCG (1000 UT) Oral Capsule Take 1 Cap by mouth daily. 30 Cap 5 1 Active ProAir HFA 108 (90 Base) MCG/ACT Inhalation Aerosol SolutionIndications :Bronchitis, complicated Inhale by mouth 2 Puffs 4 times a day . 18 g 1 2 Active Furosemide 20 MG Oral Tablet (Lasix) Take by mouth 1 Tablet daily as needed (lower leg swelling). 30 Tablet 11 2 Active Trelegy Ellipta 100-62.5-25 MCG/INH Aerosol Powder Breath Activated (fluticasone-umecli dinium-vilanterol)I ndications:COPD, group D, by GOLD 2017 classification ([facility]) Inhale by mouth 1 Puff in the morning. 60 Blister Dosing Unit 3 2 Active Warfarin Sodium 5 MG Oral Tablet (Coumadin)Indicatio ns:Paroxysmal atrial fibrillation (HCC) Take by mouth 1 Tablet in the evening. OR As directed by coumadin clinic. 90 Tablet 3 2 Active Baclofen 10 MG Oral Tablet (Lioresal) Take by mouth 1 Tablet as needed in the morning AND 1 Tablet as needed at noon AND 1 Tablet as needed in the evening for Muscle spasms. 90 Tablet 3 2 Active Mirtazapine 30 MG Oral Tablet (Remeron) Take by mouth 1 Tablet before bedtime. 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 1 Each 0 2 Active LORazepam 0.5 MG Oral Tablet (Ativan) Take by mouth 1 Tablet as needed in the morning AND 1 Tablet as needed at noon AND 1 Tablet as needed in the evening for Anxiety. 90 Tablet 1 2 Active DULoxetine HCl 60 MG Oral Capsule Delayed Release Particles (Cymbalta) Take by mouth 1 Capsule in the morning. 30 Capsule 1 2 Active busPIRone HCl 10 MG Oral Tablet (Buspar) Take by mouth 2 Tablets in the morning AND 2 Tablets before bedtime. 120 Tablet 1 2 Active Isosorbide Mononitrate ER 30 MG Oral Tablet Extended Release 24 Hour (Imdur) take 1 tablet by mouth daily 30 Tablet 5 2 Active traMADol HCl 100 MG Oral TabletIndications:C hronic bilateral low back pain without sciatica take 1 tablet by mouth every 8 hours if needed for moderate pain to severe pain 90 Tablet 0 2 Active traMADol HCl 100 MG Oral TabletIndications:C hronic bilateral low back pain without sciatica take 1 tablet by mouth every 8 hours if needed for MODERATE TO SEVERE PAIN 90 Tablet 0 2 07/29/20 22 Discontinued Hospital, Clinic, or Other Facility [...] as of this encounter (statuses as of 07/30/2022) Active Problems Problem Noted Date History of [...] as of this encounter (statuses as of 07/30/2022) Resolved Problems Problem Noted Date Resolved Date [...] as of this encounter (statuses as of 07/30/2022) Immunizations Name Administration Dates Next Due H1N1 [...] encounter Miscellaneous Notes * Telephone Encounter - Tamar Jones CPhT - 07/30/2022 9:57 AM EDT Pt calling to request tramadol. Informed pt that RX is available at their pharmacy. Pt verbalized understanding and stated they will check with their pharmacy regarding this medication. 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 - 07/29/2022 4:33 PM EDT Pending Prescriptions: Disp Refills traMADol HCl 100 MG Oral Tablet [Pharmacy*90 Tab* Sig: take 1 tablet by mouth every 8 hours if needed for moderate pain to severe pain * Telephone Encounter - Alonso Billings [facility] - 07/29/2022 4:32 PM EDT I have reviewed the patients controlled substance dispensing history in the Prescription Drug Monitoring Program in compliance with the [facility] regulations before prescribing a controlled substance. PDMP checked on 07/29/2022. Pending Prescriptions: Disp Refills traMADol HCl 100 MG Oral Tablet [Pharmacy*90 Tab* Sig: take 1 tablet by mouth every 8 hours if needed for moderate pain to severe pain Last Visit: 01/23/2022 (in office), 03/14/2021 (telemedicine) Next Visit: Visit date not found Date medication was last filled: 07/02/22 Date medication is due for refill: 07/31/22 [facility]acy: [facility] #[id number] Is this request for a controlled [...] Results Review. Please approve if appropriate. Thanks, Alonso Billings, PharmD Clinical Pharmacist [facility] [phone] 07/29/2022, 4:33 PM documented in this encounter Plan of Treatment Upcoming Encounters Date Type Specialty Care Team Description 08/03/2022 Telemedicine Psychiatry Hugo Alcantara MD [address] [place] [address] 08/11/2022 Laboratory Laboratory Processing [facility] Mobile Home Draw [address] [place] [address] 08/12/2022 [facility] [address] [place] [address] 09/02/2022 Office Visit Otolaryngology Jazmine Whitehead PA-C 132 [facility] [place] [address] 12/02/2022 Office Visit Pulmonary [facility] [address] [facility] [address] Scheduled Procedures Name Priority Associated Diagnoses [...] exists LUNG CANCER SCREENING - USE SMARTSET 52525 Completed 03/16/2022 GARDASIL-HPV IMMUNIZATION SERIES Aged Out [...] Documents on File Type Date Recorded Patient Comfort Filler Expl 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 Advanced Directive 11/02/2011 12:00 AM Care Teams Cigar Making Supervisor Relationship Specialty Start Date End Date Jeevan Mclean MD [address] [place] [address] PCP - General Family Medicine 12/29/19 documented as of this encounter
--- OUTSIDE RECORDS SUMMARY | 2023-07-25 04:34 | External Medical Summary | Summary of Care ---
Author Name Unknown Organization [place] [address] Care Team Providers Care Restaurant Kitchen And Service Manager Name Role Phone Jeevan Mclean MD Primary Care Provider [phone] [phone] Reason for Visit * Reason Comments eRx-Medication Refill Encounter Details Date Type Department Care Team Description 07/29/2022 Refill Family Practice [facility] [address] [place] [id number] Jeevan Mclean MD 132 [facility] [place] [address] Chronic bilateral low back pain without sciatica Allergies Active Allergy Reactions Severity Noted Date Comments Aspirin Unknown 12/12/2007 von Willebrand's disease Salicylates 03/01/2000 von Willebrand's disease documented as of this encounter (statuses as of 07/29/2022) Medications Medication Sig Dispensed Refills Start Date [...] ndications:COPD, group D, by GOLD 2017 classification ([facility]) Inhale by mouth 1 Puff in [...] bedtime. 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 respiratory failure (HCC),COPD, group D, [...] as of this encounter (statuses as of 07/29/2022) Active Problems Problem Noted Date History of [...] as of this encounter (statuses as of 07/29/2022) Resolved Problems Problem Noted Date Resolved Date [...] as of this encounter (statuses as of 07/29/2022) Immunizations Name Administration Dates Next Due H1N1 [...] JEEVAN MCLEAN * Telephone Encounter - Alonso Billings [facility] - 07/29/2022 4:33 PM EDT Pending Prescriptions: Disp Refills traMADol HCl 100 MG Oral Tablet [Pharmacy*90 Tab* Sig: take 1 tablet by mouth every 8 hours if needed for moderate pain to severe pain * Telephone Encounter - Alonso Billings RPh - 07/29/2022 4:32 PM EDT I have reviewed the patients controlled substance dispensing history in the Prescription Drug Monitoring Program in compliance with the [facility] regulations before prescribing a controlled [...] for refill: 07/31/22 Pharmacy: [facility] #[id number] Is this request for a controlled [...] appropriate. Thanks, Alonso Billings, PharmD Clinical Pharmacist Telepharmacy [phone] 07/29/2022, 4:33 PM documented in this encounter Plan of Treatment Upcoming Encounters Date Type Specialty Care Team Description 08/03/2022 Telemedicine Psychiatry Hugo Alcantara MD [address] [place] [address] 08/11/2022 Laboratory Laboratory Processing [facility], [facility] Mobile Home Draw [address] [place] [address] 08/12/2022 [facility] 58 60 [facility] [place] [address] 09/02/2022 Office Visit Otolaryngology Jazmine Whitehead PA-C 132 [facility] [place] [address] 12/02/2022 Office Visit Pulmonary Jesus Bonilla MD [address] [place] [address] Scheduled Procedures Name Priority Associated Diagnoses Date/Ti [...] exists LUNG CANCER SCREENING - USE SMARTSET 77588 Completed 03/16/2022 GARDASIL-HPV IMMUNIZATION SERIES Aged Out [...] Documents on File Type Date Recorded Patient Automatic Machine Attendant Expl 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 Advanced Directive 11/02/2011 12:00 AM Care Teams Restaurant Kitchen And Service Manager Relationship Specialty Start Date End Date Jeevan Mclean MD [address] [facility] [place] [address] PCP - General Family Medicine 12/29/19 documented as of this encounter
--- OUTSIDE RECORDS SUMMARY | 2023-07-25 04:34 | External Medical Summary | Summary of Care ---
Author Name Unknown Organization [place] [address] Care Team Providers Care Technical Specialist Name Role Phone Roger Alexandra MD Primary Care Provider [phone] [phone] Reason for Visit * Reason Onset Date Comments Medication Refill 08/10/2022 Encounter Details Date Type Department Care Team Description 08/10/2022 [address] [facility] [place] [address] [place] [address] Hugo Alcantara MD [address] [place] [address] Allergies Active Allergy Reactions Severity Noted Date Comments Aspirin Unknown 12/12/2007 von Willebrand's disease Salicylates 03/01/2000 von Willebrand's disease documented as of this encounter (statuses as of 08/10/2022) Medications Medication Sig Dispensed Refills Start Date [...] 2017 classification ([facility]) Inhale by mouth 1 Puff in [...] spasms. 90 Tablet 3 02/16/2022 Active Nystatin 441124 UNIT/GM External Powder (Nyamyc) apply to affected area twice a day 15 g 1 05/19/2022 Active oxygen IN GASIndications:Probate Paralegal 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 respiratory failure (HCC),COPD, group D, by GOLD 2017 classification ([facility]) Use 2 LPM at rest, 4 LPM with exertion and with sleep. 1 Each 0 2022 Active LORazepam 0.5 MG Oral Tablet (Ativan) Take by mouth 1 Tablet as needed in the morning AND 1 Tablet as needed at noon AND 1 Tablet as needed in the evening for Anxiety. 90 Tablet 1 06/15/2022 Active busPIRone HCl 10 MG Oral Tablet [...] before bedtime. 30 Tablet 2 08/10/2022 Active Mirtazapine 30 MG Oral Tablet (Remeron) Take by mouth 1 Tablet before bedtime. 30 Tablet 2 05/11/2022 2 Discontinue d(Refill) Hospital, Clinic, or Other [...] as of this encounter (statuses as of 08/10/2022) Active Problems Problem Noted Date History of [...] as of this encounter (statuses as of 08/10/2022) Resolved Problems Problem Noted Date Resolved Date [...] as of this encounter (statuses as of 08/10/2022) Immunizations Name Administration Dates Next Due H1N1 [...] Telephone Encounter - Hugo Alcantara MD - 08/10/2022 3:58 PM EDT Signed Prescriptions: Disp Refills Mirtazapine 30 MG Oral Tablet (Remeron) 30 Tab*2 Sig: Take by mouth 1 Tablet before bedtime.Authorizing Provider: HUGO ALCANTARA * Telephone Encounter - Blanche Wilcox LPN - 08/10/2022 2:42 PM EDT Pharmacy requesting refill on Remeron. Medication was last filled on 05/11/22 with 2 refills. Patient last seen on 08/03/22 with return appointment scheduled for 10/12/22. Patient had 0 cancelled appointments and 0 NO SHOW appointments. documented in this encounter Plan of Treatment Upcoming Encounters Date Type Specialty Care Team Description 08/11/2022 Laboratory Laboratory Processing [facility] [place] Mobile Home Draw [address] [place] [address] 08/12/2022 Counts Include [facility] [address] [facility] [address] 09/02/2022 Office Visit Otolaryngology Jazmine Whitehead PA-C 132 [facility] [place] [address] 10/12/2022 Telemedicine Psychiatry Hugo Alcantara MD [address] [place] [address] 12/02/2022 Office Visit Pulmonary Jesus Bonilla MD [address] [facility] [address] Scheduled Procedures Name Priority Associated Diagnoses [...] exists LUNG CANCER SCREENING - USE SMARTSET 08228 Completed 03/16/2022 GARDASIL-HPV IMMUNIZATION SERIES Aged Out [...] Documents on File Type Date Recorded Patient E Business Manager Expl 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 Advanced Directive 11/02/2011 12:00 AM Care Teams Technical Specialist Relationship Specialty Start Date End Date Roger Alexandra MD [address] [place] [address] PCP - [facility] 12/29/19 documented as of this encounter
--- OUTSIDE RECORDS SUMMARY | 2023-07-25 04:34 | External Medical Summary | Summary of Care ---
Author Name Unknown Organization [place] [address] Care Team Providers Care Wire Steward Name Role Phone Jeevan Mclean MD Primary Care Provider [phone] [phone] Reason for Visit * Reason Comments eRx-Medication Refill Encounter Details Date Type Department Care Team Description 07/27/2022 Refill Family Practice [facility] [address] [place] [id number] Jeevan Mclean MD 132 [facility] [place] [address] Allergies Active Allergy Reactions Severity Noted Date Comments Aspirin Unknown 12/12/2007 von Willebrand's disease Salicylates 03/01/2000 von Willebrand's disease documented as of this encounter (statuses as of 07/28/2022) Medications Medication Sig Dispensed Refills Start Date [...] ndications:COPD, group D, by GOLD 2017 classification ([facility] [...] bedtime. 30 Tablet 2 2 Active Nystatin 449312 UNIT/GM External Powder (Nyamyc) apply to affected area twice a day 15 g 1 2 Active oxygen IN GASIndications:Permanent [place] 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 respiratory failure (HCC),COPD, group D, by GOLD 2017 classification ([facility]) Use 2 LPM at rest, [...] before bedtime. 120 Tablet 1 2 Active traMADol HCl 100 MG Oral TabletIndications:C hronic bilateral low back pain without sciatica take 1 tablet by mouth every 8 hours if needed for MODERATE TO SEVERE PAIN 90 Tablet 0 2 Active Isosorbide Mononitrate ER 30 MG Oral Tablet Extended Release 24 Hour (Imdur) take 1 tablet by mouth daily 30 Tablet 5 2 Active Isosorbide Mononitrate ER 30 MG Oral Tablet Extended Release 24 Hour (Imdur) take 1 tablet by mouth daily 30 Tablet 5 2 07/28/20 22 Discontinued Hospital, Clinic, or Other Facility [...] as of this encounter (statuses as of 07/28/2022) Active Problems Problem Noted Date History of [...] as of this encounter (statuses as of 07/28/2022) Resolved Problems Problem Noted Date Resolved Date [...] 02/04/2006 12/21/2008 Atrial septal aneurysm 02/04/2006 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 0 06/01/2005 [...] as of this encounter (statuses as of 07/28/2022) Immunizations Name Administration Dates Next Due H1N1 [...] Miscellaneous Notes * Telephone Encounter - Alvarez Hope [facility] - 07/28/2022 10:39 AM EDT Signed Prescriptions: Disp Refills Isosorbide Mononitrate ER 30 MG Oral Table*30 Tab*5 Sig: take 1 tablet by mouth dailyAuthorizing Provider: JEEVAN MCLEAN User: ALVAREZ HOPE---- documented in this encounter Plan of Treatment Upcoming Encounters Date Type Specialty Care Team Description 08/03/2022 Telemedicine Psychiatry Hugo Alcantara MD [address] [place] [address] 08/11/2022 Laboratory Laboratory Processing [facility] [place], [facility] Mobile Home Draw [address] [place] [address] 08/12/2022 [facility] [address] [address] [place] [address] 09/02/2022 Office Visit Otolaryngology Jazmine Whitehead PA-C [address] [place] [address] 12/02/2022 Office Visit Pulmonary Jesus Bonilla MD [address] [place] [address] Scheduled Procedures Name Priority Associated Diagnoses [...] exists LUNG CANCER SCREENING - USE SMARTSET 93728 Completed 03/16/2022 GARDASIL-HPV IMMUNIZATION SERIES Aged Out [...] Documents on File Type Date Recorded Patient News Director Expl 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 Advanced Directive 11/02/2011 12:00 AM Care Teams Wire Steward Relationship Specialty Start Date End Date Jeevan Mclean MD 132 [facility] [place] [id number] PCP - General Family Medicine 12/29/19 documented as of this encounter
--- OUTSIDE RECORDS SUMMARY | 2023-07-25 04:34 | External Medical Summary | Summary of Care ---
Author Name Unknown Organization [place] [address] Care Team Providers Care Sterile Processing Technician Name Role Phone Jeevan Mclean MD Primary Care Provider [phone] Reason for Visit * Reason Onset Date Comments Medication Refill 07/01/2022 Encounter Details Date Type Department Care Team Description 07/01/2022 Refill Family Practice [facility] [address] [facility] [place] [address] Jeevan Mclean MD [address] [facility] [place] [address] Chronic bilateral low back pain without sciatica Allergies Active Allergy Reactions Severity Noted Date Comments Aspirin Unknown 12/12/2007 von Willebrand's disease Salicylates 03/01/2000 von Willebrand's disease documented as of this encounter (statuses as of 07/01/2022) Medications Medication Sig Dispensed Refills Start Date [...] leg swelling). 30 Tablet 11 01/23/2022 Active Isosorbide Mononitrate ER 30 MG Oral Tablet Extended Release 24 Hour (Imdur) take 1 tablet by mouth daily 30 Tablet 5 02/06/2022 Active Trelegy Ellipta 100-62.5-25 MCG/INH Aerosol Powder Breath Activated (fluticasone-umecli dinium-vilanterol)I ndications:COPD, group D, by GOLD 2017 classification ([facility]) Inhale by mouth 1 Puff in [...] Muscle spasms. 90 Tablet 3 02/16/2022 Active Mirtazapine 30 MG Oral Tablet (Remeron) Take by mouth 1 Tablet before bedtime. 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 1 Each 0 2022 Active LORazepam 0.5 MG Oral Tablet (Ativan) Take by mouth 1 Tablet as needed in the morning AND 1 Tablet as needed at noon AND 1 Tablet as needed in the evening for Anxiety. 90 Tablet 1 06/15/2022 Active DULoxetine HCl 60 MG Oral Capsule Delayed Release Particles (Cymbalta) Take by mouth 1 Capsule in the morning. 30 Capsule 1 06/22/2022 Active busPIRone HCl 10 MG Oral Tablet (Buspar) Take by mouth 2 Tablets in the morning AND 2 Tablets before bedtime. 120 Tablet 1 06/22/2022 Active traMADol HCl 100 MG Oral TabletIndications:C hronic bilateral low back pain without sciatica take 1 tablet by mouth every 8 hours if needed for MODERATE TO SEVERE PAIN 90 Tablet 0 07/01/2022 Active traMADol HCl 100 MG Oral TabletIndications:C hronic bilateral low back pain without sciatica take 1 tablet by mouth every 8 hours if needed for MODERATE TO SEVERE PAIN 90 Tablet 0 06/04/2022 2 Discontinue d(Refill) Hospital, Clinic, or Other [...] as of this encounter (statuses as of 07/01/2022) Active Problems Problem Noted Date History of [...] as of this encounter (statuses as of 07/01/2022) Resolved Problems Problem Noted Date Resolved Date [...] as of this encounter (statuses as of 07/01/2022) Immunizations Name Administration Dates Next Due H1N1 [...] Telephone Encounter - Jeevan Mclean MD - 07/01/2022 1:03 PM EDT Signed Prescriptions: Disp Refills traMADol HCl 100 MG Oral Tablet 90 Tab*0 Sig: take 1 tablet by mouth every 8 hours if needed for MODERATE TO SEVERE PAIN Authorizing Provider: JEEVAN MCLEAN * Telephone Encounter - Héctor Pradhan [facility] - 07/01/2022 12:57 PM EDT Pending Prescriptions: Disp Refills traMADol HCl 100 MG Oral Tablet 90 Tab*0 Sig: take 1 tablet by mouth every 8 hours if needed for MODERATE TO SEVERE PAIN * Telephone Encounter - Héctor Pradhan RP - 07/01/2022 12:56 PM EDT I have reviewed the patients controlled substance dispensing history in the Prescription Drug Monitoring Program in compliance with the [facility] regulations before prescribing a controlled substance. PDMP checked on 07/01/2022. Pending Prescriptions: Disp Refills traMADol HCl 100 MG Oral Tablet 90 Tab*0 Sig: take 1 tablet by mouth every 8 hours if needed for MODERATE TO SEVERE PAIN Last Visit: 01/23/2022 (in office), 03/14/2021 (telemedicine) Next Visit: Visit date not found Date medication was last filled: 06/04/22 Date medication is due for refill: 07/02/22 [facility]: [facility] [id number] Is this request for a controlled substance? Yes and Urine Drug Screen Not completed Please approve if appropriate. Thanks, Héctor Pradhan, PharmD Clinical Pharmacist Telepharmacy [phone] 07/01/2022, 12:56 PM * Telephone Encounter - Chikis Wesley CPhT - 07/01/2022 9:45 AM EDT Did you pend patient's preferred pharmacy and medication before forwarding?yes Pharmacy: [facility] #[id number] Pending Prescriptions: Disp Refills traMADol HCl 100 MG Oral Tablet 90 Tab*0 Sig: take 1 tablet by mouth every 8 hours if needed for MODERATE TO SEVERE PAIN Last Visit: 01/23/2022 (in office), 03/14/2021 (telemedicine) Next Visit: Visit date not found If no future appointments scheduled, and last appointment is greater than a year ago, please schedule patient for a follow-up appointment Last date the medication was ordered: 06/04/2022 Is this request for a controlled substance?Yes, What was the last refill date 06/04/2022 w/ quantity 90 and dosage 100mgand Urine Drug Screen was completed Urine Drug [...] AM TSH 0.66 12/29/2019 10:22 AM LDLCALC 99 09/25/2015 12:00 AM LDLCALC 123 05/01/2011 11:39 AM LDLDIRECT 138 (H) 02/14/2015 09:27 AM ALT 6 (L) 12/29/2019 10:22 AM HGBA1C 5.7 04/19/2014 12:08 PM documented in this encounter Plan of Treatment Upcoming Encounters Date Type Specialty Care Team Description 07/14/2022 Laboratory Laboratory Processing c, [facility] Mobile Home Draw [address] [place] [address] 07/15/2022 [facility] [address] [facility] [address] 08/03/2022 Telemedicine Psychiatry Hugo Alcantara MD [address] [place] [address] 09/02/2022 Office Visit Otolaryngology Jazmine Whitehead PA-C [address] [place] [address] 12/02/2022 Office Visit Pulmonary Jesus Bonilla MD [...] exists LUNG CANCER SCREENING - USE SMARTSET 55457 Completed 03/16/2022 GARDASIL-HPV IMMUNIZATION SERIES Aged Out [...] Documents on File Type Date Recorded Patient Television Technician Expl 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 Advanced Directive 11/02/2011 12:00 AM Care Teams Sterile Processing Technician Relationship Specialty Start Date End Date Jeevan Mclean MD 132 [facility] [place] [id number] PCP - General Family Medicine 12/29/19 documented as of this encounter
--- OUTSIDE RECORDS SUMMARY | 2023-07-25 04:34 | External Medical Summary ---
Author Name Unknown Address Unknown Organization K01:[facility] [place] [address] [facility] [address] [place] [address] Laboratory Report Ordering Provider Test Date Status SUMAN STANFORD 07/14/2022 09:55:00 Final Observation Date Value Abnormality Reference (Units ) Status PT 07/14/2022 09:55:00 36.2 Above high normal 11 .5-14.6 (seconds) Final INR 07/14/2022 09:55:00 3.68 Above high normal 0. 84-1.14 Final Performing Location [facility] [place] [address] [place] [address]
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
--- OUTSIDE RECORDS SUMMARY | 2023-07-25 04:34 | External Medical Summary | Summary of Care ---
Author Name Unknown Organization [place] [address] Care Team Providers Care Public Health Policy Analyst Name Role Phone Roger Alexandra MD Primary Care Provider [phone] Reason for Visit * Reason Onset Date Comments Fax 06/10/2022 re: oxygen order Encounter Details Date Type Department Care Team Description 06/10/[address] [facility] [address] [place] [address] Roger Alexandra MD 132 [facility] [place] [id number] Fax (re: oxygen order) Allergies Active Allergy Reactions Severity Noted Date Comments Aspirin Unknown 12/12/2007 von Willebrand's disease Salicylates 03/01/2000 von Willebrand's disease documented as of this encounter (statuses as of 06/23/2022) Medications Medication Sig Dispensed Refills Start Date End Date Status Disposable Brief X-LargeIndications :Overactive bladder Attends X-Large [...] leg swelling). 30 Tablet 11 2 Active Isosorbide Mononitrate ER 30 MG Oral Tablet Extended Release 24 Hour (Imdur) take 1 tablet by mouth daily 30 Tablet 5 2 Active Trelegy Ellipta 100-62.5-25 MCG/INH Aerosol Powder Breath Activated (fluticasone-umecl idinium-vilanterol )Indications:COPD, group D, by GOLD 2017 classification ([facility] [...] bedtime. 30 Tablet 2 2 Active Nystatin 467089 UNIT/GM External Powder (Nyamyc) apply to affected area twice a day 15 g 1 2 Active oxygen IN GASIndications:Chr onic hypoxemic respiratory failure (HCC),COPD, group D, by GOLD 2017 classification ([facility]) Use 2 LPM at rest, 4 LPM with exertion and with sleep. 1 Each 0 2 Active traMADol HCl 100 MG Oral TabletIndications: Chronic bilateral low back pain without sciatica take 1 tablet by mouth every 8 hours if needed for MODERATE TO SEVERE PAIN 90 Tablet 0 2 Active LORazepam 0.5 MG Oral Tablet (Ativan) Take by mouth 1 Tablet as needed in the morning AND 1 Tablet as needed at noon AND 1 Tablet as needed in the evening for Anxiety. Do not start before April 23, 2022. 90 Tablet 1 2 06/12/20 22 Discontinued(Ref ill) DULoxetine HCl 30 MG Oral Capsule Delayed Release Particles (Cymbalta) Take by mouth 1 Capsule in the morning. 30 Capsule 1 2 06/22/20 22 Discontinued busPIRone HCl 10 MG Oral Tablet (Buspar) Take by mouth 2 Tablets in the morning AND 2 Tablets before bedtime. 120 Tablet 1 2 06/22/20 22 Discontinued(Ref ill) Hospital, Clinic, or Other [...] as of this encounter (statuses as of 06/23/2022) Active Problems Problem Noted Date History of [...] as of this encounter (statuses as of 06/23/2022) Resolved Problems Problem Noted Date Resolved Date [...] as of this encounter (statuses as of 06/23/2022) Immunizations Name Administration Dates Next Due H1N1 [...] Telephone Encounter - Airam Ramey LPN - 06/23/2022 9:05 AM EDT Called [place] [facility], and clarified oxygen order. She understands the current order is 2LPM atrest, and 4 LPM with exertion and sleep. * Telephone Encounter - Myesha Dhillon CMA - 06/22/2022 12:14 PM EDT Called [facility] and spoke with [place]. He states the the Current Outpatient Medications that waspart of the Office note on 05/28/22 that was faxed, states in the Sig for Oxygen - As needed and at bedtime. Please call [facility] and give updated instructions. * Telephone Encounter - COY Allen - 06/18/2022 9:55 AM EDT Covering for Dr. Bonilla. The 05/28/[address] Bonilla states "oxygen supplementation as above" referencing "Chronic hypoxic respiratory failure requiring 2 L at rest 4 L with exertion, 4 L with sleep" which is consistent with the prescription written for oxygen on the same date. Rx states "Use 2 LPM at rest, 4 LPM with exertion and with sleep." There is no mention of "oxygen as needed". * Telephone Encounter - Mali Benz LPN - 06/18/2022 7:39 AM EDT and are out of the office for the next 2 weeks. Please advise * Telephone Encounter - Nissa Richter LPN - 06/17/2022 5:12 PM EDT Medicare will not pay for O2 as needed, does pt require oxygen? Pt last saw Dr. Bonilla in May. Please advise * Telephone Encounter - RUFINA Allen - 06/17/2022 4:[address] [facility] called stating note that was sent states pt uses oxygen during the day "as needed." Naina states that this needs clarified as pt's insurance will not cover oxygen on an as needed basis. Please send clarification to fax number [phone]. * Telephone Encounter - Kim De Guzman LPN - 06/12/2022 8:55 AM EDT No notes within the time period, but I do have a pulm note from 05/28. Will fax that and hope that helps. * Telephone Encounter - RUFINA Chatterjee - 06/10/2022 4:36 PM EDT Caller requesting the following information to be faxed: Name/Company of caller: Naina from [employer]. Information requested to be faxed: Naina states that they need the patient's face to face notes that are within a 30 day window from the patient's 6 minute walk test on 03/24/22. Naina states that thenotes could be from 02/22/22 to 04/23/22. Fax number: [phone] Attention to Name/Company: Any additional information?: documented in this encounter Plan of Treatment Upcoming Encounters Date Type Specialty Care Team Description 07/14/2022 Laboratory Laboratory [place] [facility] [place] [facility] Home Draw [address] [place] [address] 07/15/2022 [facility] [place] [address] [address] [place] [address] 08/03/2022 Telemedicine Psychiatry Hugo Alcantara MD [address] [place] [address] 09/02/2022 Office Visit Otolaryngology Jazmine Whitehead PA-C 132 [facility] [place] [address] 12/02/2022 Office Visit Pulmonary Jesus Bonilla MD [address] [place] [address] Scheduled Procedures Name Priority Associated Diagnoses Date/Ti [...] exists LUNG CANCER SCREENING - USE SMARTSET [address] Completed 03/16/2022 GARDASIL-HPV IMMUNIZATION SERIES Aged Out [...] Documents on File Type Date Recorded Patient Welding Rod Coater Expl 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 Advanced Directive 11/02/2011 12:00 AM Care Teams Public Health Policy Analyst Relationship Specialty Start Date End Date Roger Alexandra MD [address] [facility] [place] [address] PCP - General Family Medicine 12/29/19 documented as of this encounter
--- OUTSIDE RECORDS SUMMARY | 2023-07-25 04:34 | External Medical Summary | Summary of Care ---
Author Name Unknown Organization [facility] Address [place] [address] Care Team Providers Care Metals Analyst Name Role Phone Roger Alexandra MD Primary Care Provider [phone] [phone] Reason for Visit * Reason Comments Dosage Adjustment Via Phone (anticoag Cl inic) Encounter Details Date Type Department Care Team Description 07/15/2022 Anticoagulation Pharmacy Call Center [address] [facility] [place] [address] [facility] [address] [place] [address] bed bug exterminator current use 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* Allergies Active Allergy Reactions Severity Noted Date Comments Aspirin Unknown 12/12/2007 von Willebrand's disease Salicylates 03/01/2000 von Willebrand's disease documented as of this encounter (statuses as of 07/15/2022) Medications Medication Sig Dispensed Refills Start Date [...] MG Oral Tablet (Coumadin)Indication s:Paroxysmal atrial fibrillation ([facility]) Take by mouth 1 Tablet in the [...] bedtime. 30 Tablet 2 05/11/2022 Active Nystatin 878579 UNIT/GM External Powder (Nyamyc) apply to affected [...] 06/22/2022 Active traMADol HCl 100 MG Oral TabletIndications:Ch ronic bilateral low back pain without sciatica take 1 tablet by mouth every 8 hours if needed for MODERATE TO SEVERE PAIN 90 Tablet 0 07/01/2022 Active Hospital, Clinic, or Other Facility Administered [...] as of this encounter (statuses as of 07/15/2022) Active Problems Problem Noted Date History of [...] as of this encounter (statuses as of 07/15/2022) Resolved Problems Problem Noted Date Resolved Date [...] as of this encounter (statuses as of 07/15/2022) Immunizations Name Administration Dates Next Due H1N1 [...] Progress Notes * Kim Mercado RPh - 07/15/2022 4:27 PM EDT Images from the original note were not included. Medication Therapy Disease Management - Anticoagulation Patient: Kimberly Kendall : 1960 Contacts Type Contact Phone 07/15/2022 04:27 PM EDT Phone (Outgoing) CycloneKimberly mcdonnell (Self) [phone] (M) Spoke to Patient Current Warfarin Dose As of 07/15/2022 Warfarin maintenance plan: 5 mg (5 mg x 1) every day Patient-Reported Symptoms: Patient Findings Positives: Change in diet/appetite Negatives: Signs/symptoms of thrombosis, Signs/symptoms of bleeding, Change in health, Change in alcohol use, Change in activity, Upcoming invasive procedure, Missed doses, Extra doses, Change in medications, Bruising Comments: Not eating as much normal. INR Result As of 07/15/2022 INR goal: 2.0-3.0 INR used for dosin.68 (07/14/2022) Warfarin Plan As of 07/15/2022 Full warfarin instructions: 07/15: Hold; Otherwise 5 mg every day Next INR check: 08/11/2022 Additional Dosing Information: Description GML Also sent MyG after trying to call Repeat PT/INR in 4 week(s) Weekly dose: not changed Kim Mercado RPh Clinical Pharmacist 07/15/2022, 4:27 PM documented in this encounter Plan of Treatment Upcoming Encounters Date Type Specialty Care Team Description 08/03/2022 Telemedicine Psychiatry Hugo Alcantara MD [address] [place] [address] 09/02/2022 Office Visit Otolaryngology Jazmine Whitehead PA-C [address] [place] [address] 12/02/2022 Office Visit Pulmonary Jesus Bonilla MD [address] [place] [id number] Scheduled Procedures Name Priority Associated Diagnoses Date/Ti [...] exists LUNG CANCER SCREENING - USE SMARTSET 54711 Completed 03/16/2022 GARDASIL-HPV IMMUNIZATION SERIES Aged Out [...] Documents on File Type Date Recorded Patient Drip Box Tender Expl 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 Advanced Directive 11/02/2011 12:00 AM Care Teams Metals Analyst Relationship Specialty Start Date End Date Roger Alexandra MD [address] [facility] [place] [address] PCP - General Family Medicine 12/29/19 documented as of this encounter
--- OUTSIDE RECORDS SUMMARY | 2023-07-25 04:34 | External Medical Summary | Summary of Care ---
Author Name Unknown Organization [place] [address] Care Team Providers Care Monitor Technician Name Role Phone Roger Alexandra MD Primary Care Provider [phone] [phone] Encounter Details Date Type Department Care Team Description 08/03/2022 Orders Only Outcomes Research Department [address] [place] [address] Niharika Hernandez CHRA MyCode Research Other*[id number] Allergies Active Allergy Reactions Severity Noted Date [...] Tablet (Coumadin)Indication s:Paroxysmal atrial fibrillation ([facility]) Take by mouth 1 Tablet [...] bedtime. 30 Tablet 2 05/11/2022 Active Nystatin 663541 UNIT/GM External Powder (Nyamyc) apply to affected [...] severe pain 90 Tablet 0 07/29/2022 Active Hospital, Clinic, or Other Facility Administered [...] Telemedicine Psychiatry Hugo Alcantara MD [address] [place] [address] 08/11/2022 Laboratory Laboratory Processing [facility] Mobile Home Draw [address] [place], [place] [phone] 08/12/2022 [facility] [address] [place] [address] 09/02/2022 Office Visit Otolaryngology Jazmine Whitehead PA-C [address] [facility] [place] [address] 12/02/2022 Office Visit Pulmonary [facility] [address] [facility] [address] Scheduled Orders Name Type Priority Associated Diagnoses Orde r Schedule MYCODE SUBSEQUENT ADULT Lab Routine My[employer] Research Other*[id number] Every 6 Months for 2 Occurrences starting 08/03/2022 until 08/23/2023 Scheduled Procedures Name Priority Associated Diagnoses Date/Ti [...] exists LUNG CANCER SCREENING - USE SMARTSET 70903 Completed 03/16/2022 GARDASIL-HPV IMMUNIZATION SERIES Aged Out [...] as of this encounter Visit Diagnoses Diagnosis [employer] Research Other*[id number] documented in this encounter Advance Directives Documents on File Type Date Recorded Patient Molding Associate Expl 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 Advanced Directive 11/02/2011 12:00 AM Care Teams Monitor Technician Relationship Specialty Start Date End Date Roger Alexandra MD [address] [place] [address] [place] [address] PCP - General Family Medicine 12/29/19 documented as of this encounter
--- OUTSIDE RECORDS SUMMARY | 2023-07-25 04:35 | External Medical Summary | Summary of Care ---
Author Name Unknown Organization [place] [address] Care Team Providers Care Tin Recovery Worker Name Role Phone Roger Alexandra MD Primary Care Provider [phone] Reason for Visit * Reason Onset Date Comments Fax 06/10/2022 Encounter Details Date Type Department Care Team Description 06/10/2022 Telephone Family Practice [facility] [address] [place] [address] Roger Alexandra MD 132 [facility] [place] [address] Fax Allergies Active Allergy Reactions Severity Noted Date Comments Aspirin Unknown 12/12/2007 von Willebrand's disease Salicylates 03/01/2000 von Willebrand's disease documented as of this encounter (statuses as of 06/22/2022) Medications Medication Sig Dispensed Refills Start Date [...] )Indications:COPD, group D, by GOLD 2017 classification ([facility] [...] before bedtime. 120 Tablet 1 2 Active Nystatin 404553 UNIT/GM External Powder (Nyamyc) apply to affected [...] 30 Capsule 1 2 06/22/20 22 Discontinued Hospital, Clinic, or Other Facility [...] as of this encounter (statuses as of 06/22/2022) Active Problems Problem Noted Date History of [...] as of this encounter (statuses as of 06/22/2022) Resolved Problems Problem Noted Date Resolved Date [...] as of this encounter (statuses as of 06/22/2022) Immunizations Name Administration Dates Next Due H1N1 [...] CMA - 06/22/2022 12:14 PM EDT Called [employer] and spoke with [place]. He states the the Current Outpatient Medications that waspart of the Office note on 05/28/22 that was faxed, states in the Sig for Oxygen - As needed and at bedtime. Please call [employer] and give updated instructions. * Telephone Encounter [...] RUFINA Allen - 06/17/2022 4:48 PM EDT [facility] called stating note that was sent states pt uses oxygen during the day "as needed." Naina states that this needs clarified as pt's insurance will not cover oxygen on an as needed basis. Please send clarification to fax number [phone]. * Telephone Encounter - Kim De Guzman LPN - 06/12/2022 8:55 AM EDT No notes within the time period, but I do have a pulm note from 05/28. Will fax that and hope that helps. * Telephone Encounter - RUFINA Chatterjee - 06/10/2022 4:36 PM EDT Caller requesting the following information to be faxed: Name/Company of caller: Naina from [employer]. Information requested to be faxed: Naina states that they need the patient's face to face notes that are within a 30 day window from the patient's 6 minute walk test on 03/24/22. Naina states that thenotes could be from 02/22/22 to 04/23/22. Fax number: [phone] Attention to Name/Company: Any additional information?: documented in this encounter Plan of Treatment Upcoming Encounters Date Type Specialty Care Team Description 07/14/2022 Laboratory Laboratory Processing [facility] Draw [address] [facility] [address] 07/15/2022 [facility] [address] [facility] [address] 09/02/2022 Office Visit Otolaryngology Jazmine Whitehead PA-C 132 [facility] [place] [address] 12/02/2022 Office Visit Pulmonary Jesus Bonilla MD [address] [place] [address] Scheduled Procedures Name Priority Associated Diagnoses Date/Ti [...] exists LUNG CANCER SCREENING - USE SMARTSET 15638 Completed 03/16/2022 GARDASIL-HPV IMMUNIZATION SERIES Aged Out [...] Documents on File Type Date Recorded Patient Aerobics Instructor Expl 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 Advanced Directive 11/02/2011 12:00 AM Care Teams Tin Recovery Worker Relationship Specialty Start Date End Date Roger Alexandra MD [address] [place] [address] PCP - [facility] 12/29/19 documented as of this encounter
--- OUTSIDE RECORDS SUMMARY | 2023-07-25 04:35 | External Medical Summary | Summary of Care ---
Author Name Unknown Organization [facility] Address [place] [address] Care Team Providers Care Rail Splitter Name Role Phone Roger Alexandra MD Primary Care Provider [phone] Encounter Details Date Type Department Care Team Description 06/11/2022 External Data Patient Risk Medial Allergies Active Allergy Reactions Severity Noted Date Comments Aspirin Unknown 12/12/2007 von Willebrand's disease Salicylates 03/01/2000 von Willebrand's disease documented as of this encounter (statuses as of 06/18/2022) Medications Medication Sig Dispensed Refills Start Date [...] GOLD 2017 classification ([facility]) Inhale by mouth 1 [...] Muscle spasms. 90 Tablet 3 02/16/2022 Active DULoxetine HCl 30 MG Oral Capsule Delayed Release Particles (Cymbalta) Take by mouth 1 Capsule in the morning. 30 Capsule 1 05/11/2022 Active Mirtazapine 30 MG Oral Tablet (Remeron) Take by mouth 1 Tablet before bedtime. 30 Tablet 2 05/11/2022 Active busPIRone HCl 10 MG Oral Tablet (Buspar) Take by mouth 2 Tablets in the morning AND 2 Tablets before bedtime. 120 Tablet 1 05/11/2022 Active Nystatin 730999 UNIT/GM External Powder (Nyamyc) apply to affected area twice a day 15 g 1 05/19/2022 Active oxygen IN GASIndications:Chron ic hypoxemic respiratory failure (HCC),COPD, group D, by GOLD 2017 classification ([facility]) Use 2 LPM at rest, 4 LPM with exertion and with sleep. 1 Each 0 2022 Active traMADol HCl 100 MG Oral TabletIndications:Ch ronic bilateral low back pain without sciatica take 1 tablet by mouth every 8 hours if needed for MODERATE TO SEVERE PAIN 90 Tablet 0 06/04/2022 Active Hospital, Clinic, or Other Facility Administered [...] as of this encounter (statuses as of 06/18/2022) Active Problems Problem Noted Date History of [...] as of this encounter (statuses as of 06/18/2022) Resolved Problems Problem Noted Date Resolved Date [...] 12/21/2008 Atrial septal aneurysm 02/04/2006 9 manager policy current use 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 0 06/01/2005 [...] as of this encounter (statuses as of 06/18/2022) Immunizations Name Administration Dates Next Due H1N1 [...] Encounters Date Type Specialty Care Team Description 06/22/2022 Telemedicine Psychiatry Hugo Alcantara MD [address] [place] [address] 07/14/2022 Laboratory Laboratory Processing Gm, [facility] Mobile Home Draw [address] [place], [place] [phone] 07/15/2022 [facility] [address] [place] [address] 09/02/2022 Office Visit Otolaryngology Jazmine Whitehead PA-C 132 [facility] [place] [address] 12/02/2022 Office Visit Pulmonary Jesus Bonilla MD [address] [facility] [place] [phone] Scheduled Procedures Name Priority Associated Diagnoses Date/Ti [...] exists LUNG CANCER SCREENING - USE SMARTSET 45227 Completed 03/16/2022 GARDASIL-HPV IMMUNIZATION SERIES Aged Out [...] Documents on File Type Date Recorded Patient Bellhop Expl 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 Advanced Directive 11/02/2011 12:00 AM Care Teams Rail Splitter Relationship Specialty Start Date End Date Roger Alexandra MD [address] [place] [address] PCP - General Family Medicine 12/29/19 documented as of this encounter
--- OUTSIDE RECORDS SUMMARY | 2023-07-25 04:35 | External Medical Summary | Summary of Care ---
Author Name Unknown Organization [place] [address] Care Team Providers Care Brick Maker Name Role Phone Roger Alexandra MD Primary Care Provider [phone] [phone] Reason for Visit * Reason Onset Date Comments Fax 06/10/2022 Encounter Details Date Type Department Care Team Description 06/10/2022 Telephone Family Practice [facility] [address] [place] [id number] Roger Alexandra MD 132 [facility] [place] [address] Fax Allergies Active Allergy Reactions Severity Noted [...] ndications:COPD, group D, by GOLD 2017 classification ([facility]) Inhale by mouth 1 Puff [...] bedtime. 120 Tablet 1 05/11/2022 Active Nystatin 681736 UNIT/GM External Powder (Nyamyc) apply to affected area twice a day 15 g 1 05/19/2022 Active oxygen IN GASIndications:Information Clerk 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 respiratory failure (HCC),COPD, group D, by GOLD 2017 classification ([facility]) Use 2 LPM at rest, 4 LPM with exertion and with sleep. 1 Each 0 2022 Active traMADol HCl 100 MG Oral TabletIndications:C hronic bilateral low back pain without sciatica take 1 tablet by mouth every 8 hours if needed for MODERATE TO SEVERE PAIN 90 Tablet 0 06/04/2022 Active LORazepam 0.5 MG Oral Tablet (Ativan) Take by mouth 1 Tablet as needed in the morning AND 1 Tablet as needed at noon AND 1 Tablet as needed in the evening for Anxiety. Do not start before April 23, 2022. 90 Tablet 1 04/23/2022 2 Discontinue d(Refill) Hospital, Clinic, or Other [...] Miscellaneous Notes * Telephone Encounter - COY Allen - [...] RUFINA Allen - 06/17/2022 4:48 PM EDT [facility] called stating note that was sent states pt uses oxygen during the day "as needed." Naina states that this needs clarified as pt's insurance will not cover oxygen on an as needed basis. Please send clarification to fax number [phone]. * Telephone Encounter - Kim De Guzman LPN - 06/12/2022 8:55 AM EDT No notes within the time period, but I do have a pulm note from 05/28. Will fax that and hope that helps. * Telephone Encounter - RUFINA Chatterjee - 06/10/2022 4:36 PM EDT Caller requesting the following information to be faxed: Name/Company of caller: Naina from [employer]. Information requested to be faxed: Naina states that they need the patient's face to face notes that are within a 30 day window from the patient's 6 minute walk test on 03/24/22. Naina states that thenotes could be from 02/22/22 to 04/23/22. Fax number: [phone] Attention to Name/Company: Any additional information?: documented in this encounter Plan of Treatment Upcoming Encounters Date Type Specialty Care Team Description 06/22/2022 Telemedicine Psychiatry Hugo Alcantara MD [address] [place] [address] 07/14/2022 Laboratory Laboratory Processing [facility] [place] Mobile Home Draw [address] [place] [address] 07/15/2022 [facility] [address] [facility] [place] [address] 09/02/2022 Office Visit Otolaryngology Jazmine Whitehead PA-C [address] [place] [address] 12/02/2022 Office Visit Pulmonary Jesus Bonilla MD [address] [place] [address] Scheduled Procedures Name Priority Associated Diagnoses Date/Ti [...] exists LUNG CANCER SCREENING - USE SMARTSET 399[address] Completed 03/16/2022 GARDASIL-HPV IMMUNIZATION SERIES Aged Out [...] Documents on File Type Date Recorded Patient Display Designer Expl 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 Advanced Directive 11/02/2011 12:00 AM Care Teams Brick Maker Relationship Specialty Start Date End Date Roger Alexandra MD 132 [facility] [place] [address] PCP - General Family Medicine 12/29/19 documented as of this encounter
--- OUTSIDE RECORDS SUMMARY | 2023-07-25 04:35 | External Medical Summary | Summary of Care ---
Author Name Unknown Organization [place] [address] Care Team Providers Care Energy Scheduler Name Role Phone Roger Alexandra MD Primary Care Provider [phone] [phone] Reason for Visit * Reason Onset Date Comments Referral 01/27/2022 Encounter Details Date Type Department Care Team Description 01/27/2022 Telephone Family Practice [facility] [address] [place] [address] Roger Alexandra MD 132 [facility] [place] [address] Referral Allergies Active Allergy Reactions Severity Noted [...] leg swelling). 30 Tablet 11 01/23/2022 Active documented as of this encounter (statuses [...] Packs/Day Years Used Date Former Smoker Cigarettes 0.25 32 Quit: 01/17 Smokeless Tobacco: Never Used Comments:will only try with patches which are not covered by insurance Alcohol Use Standard Drinks/Week Comments No 0 [...] encounter Miscellaneous Notes * Telephone Encounter - Kimberly Fernandez LPN - 01/27/2022 2:42 PM EDT Please route to correct pool. * Telephone Encounter - RUFINA Taylor - 01/27/2022 2:25 PM EDT Has the patient been seen for this problem? (Y/N)?: n If No, an appt needs to be scheduled before a referral will be placed Patient Name: Kimberly Kendall Patient Primary care provider: Roger Alexandra MD Does this need to be an insurance referral (Y/N)?: y Name of preferred specialist: [facility] Type of specialist: wound Location of specialist:[address] Specialist's Phone # [phone] Specialist's Fax #: [phone] Reason for visit: wound care Date of visit: Wound not healing getting larger,had since 12/06 [facility] care stated she is not compliant with her scheduled care diet and daily wieight. documented in this encounter Plan of Treatment Upcoming Encounters Date Type Specialty Care Team Description 06/22/2022 Telemedicine Psychiatry Hugo Alcantara MD [address] [place] [address] 07/14/2022 Laboratory Laboratory Processing [facility] [place] Mobile Home Draw [address] [place] [address] 07/15/2022 [facility] [address] [facility] [place] [address] 09/02/2022 Office Visit Otolaryngology Jazmine Whitehead PA-C 132 [facility] [place] [address] 12/02/2022 Office Visit Pulmonary Jesus Bonilla MD [address] [place] [id number] Scheduled Procedures Name Priority Associated Diagnoses Date/Ti [...] exists LUNG CANCER SCREENING - USE SMARTSET [address] Completed 03/16/2022 GARDASIL-HPV IMMUNIZATION SERIES Aged Out [...] Documents on File Type Date Recorded Patient Principal Product Manager Expl 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 Directive 11/02/2011 12:00 AM Care Teams Energy Scheduler Relationship Specialty Start Date End Date Roger Alexandra MD [address] [place] [address] [place] [address] PCP - General Family Medicine 12/29/19 documented as of this encounter
--- OUTSIDE RECORDS SUMMARY | 2023-07-25 04:35 | External Medical Summary | Summary of Care ---
Author Name Unknown Organization [place] [address] Care Team Providers Care Chain Dyer Name Role Phone Roger Alexandra MD Primary Care Provider [phone] Reason for Visit * - Authorized Specialty Diagnoses / Procedures Referred By Contac t Referred To Contact Referral ID Status Reason Start Date Expiration Date V isits Requested Visits Authorized [id number] Authorized 06/15/2022 06/14/2023 999 Encounter Details Date Type Department Care Team Description 06/22/2022 Telemedicine Psychiatry, [address] [address] Hugo Alcantara MD [address] [facility] [place] [address] SIMA (generalized anxiety disorder)* Allergies [...] 2017 classification ([facility]) Inhale by mouth 1 Puff in the morning. 60 Blister Dosing Unit 3 2 Active Warfarin Sodium 5 MG Oral Tablet (Coumadin)Indicati ons:Paroxysmal atrial fibrillation ([facility]) Take by mouth 1 Tablet [...] bedtime. 30 Tablet 2 2 Active Nystatin 086616 UNIT/GM External Powder (Nyamyc) apply to affected area twice a day 15 g 1 2 Active oxygen IN GASIndications:Chr onic hypoxemic respiratory failure (HCC),COPD, group D, by GOLD 2017 classification ([facility]) Use 2 LPM at rest, [...] before bedtime. 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 Patient (or authorized legal inbound sales representative) was then informed that this was a Telemedicine visit and being conducted confidentially over secure lines. Methods to assure confidentiality were taken. Patient acknowledged consent and understanding of privacy and security of the Telemedicine visit. The patient agreed to participate. PSYCHOTHERAPY & MEDICATION MANAGEMENT RETURN VISIT NOTE [facility], [facility] [address] [place] [address] 08/18/2021 Kimberly Kendall CHIEF COMPLAINT: medication management INTERVAL HISTORY: she states she's "so so". She states her granddaughter just gave . She states she continues to struggle with feeling "very nervous". Does not feel there have been any changes with this. Experiences this daily with "70% of day" consumed by anxiety. Sleep: "I'm not really". States she is getting broken sleep with "2 hours here and there". No changes with increased Remeron. Reports appetite as "poor". She notes ongoing issues with concentration-- "I' can't remember anything". She states she has been crocheting but feels she is unable to do so physically. She notes "I know what I need to do but can't get my fingers to do it". She also states she feels unsteady and off balance for "the last few months". Feels pain is "the same". Mood is "sometimes down and sometimes happy". 0/3 for short term recall (immediate recall 3/3). Only able to list current president and one previous. OBJECTIVE DATA: COLUMBIA-SUICIDE SEVERITY RATING SCALE Have [...] needed (lower leg swelling). 30 Tablet 11 Isosorbide Mononitrate ER 30 MG Oral Tablet Extended Release 24 Hour (Imdur) take 1 tablet by mouth daily 30 Tablet 5 Trelegy Ellipta 100-62.5-25 MCG/INH Aerosol Powder Breath Activated (padqwvkzuht-ivvruqvftspn-yqnktfhmmh) Inhale by mouth 1 Puff in the [...] evening for Muscle spasms. 90 Tablet 3 DULoxetine HCl 30 MG Oral Capsule Delayed Release Particles (Cymbalta) Take by mouth 1 Capsule in the morning. 30 Capsule 1 Mirtazapine 30 MG Oral Tablet (Remeron) Take by mouth 1 Tablet before bedtime. 30 Tablet 2 busPIRone HCl 10 MG Oral Tablet (Buspar) Take by mouth 2 Tablets in the morning AND 2 Tablets before bedtime. 120 Tablet 1 Nystatin 638441 UNIT/GM External Powder (Nyamyc) apply to affected area twice a day 15 g 1 oxygen IN GAS Use 2 LPM at rest, 4 LPM with exertion and with sleep. 1 Each 0 traMADol HCl 100 MG Oral Tablet take 1 tablet by mouth every 8 hours if needed for MODERATE TO SEVERE PAIN 90 Tablet 0 LORazepam 0.5 MG Oral Tablet (Ativan) Take by mouth 1 Tablet as needed in the morning AND 1 Tablet as needed at noon AND 1 Tablet as needed in the evening for Anxiety. 90 Tablet 1 Current Facility-Administered Medications Medication Dose Route [...] Speech: normal, rate, tone and volume Mood: so so Affect: type - euthymic; range - full range; lability - no Associations: intact Thought Process: goal directed Abstract Reasoning: not intact Thought Content: denies suicidal ideations, homicidal ideations, auditory hallucinations, visual hallucinations, delusions, impulsivity to act out or preoccupation with violence Orientation: Alert; oriented to person, place, month, year, situation (not oriented to date) Recent and remote memory as evidenced by recall of recent circumstances and remote life events: impaired Language as evidenced by ability to repeat phrase and name object: intact Fund of knowledge as evidenced by vocabulary and current/historical events: intact Attention span/concentration as evidenced by: ability to sustain attention to examiner - intact (able to do days of week backwards correctly after 2 failed attempts) Insight: fair Judgment: fair FORMULATION: Kimberly Kendall is [id number] old female with presenting symptoms ofdepression, anxiety, [...] anxiety. Stopped Seroquel. Prozac was not helpful. struggling with ongoing anxiety sx, depressive sx, demoralization and grief. DIAGNOSIS: Major depressive disorder recurrent episode moderate Generalized Anxiety Disorder PTSD Bereavement R/o major neurocognitive d/o TREATMENT PLAN: -- cont Remeron 30mg nightly for sleep/anxiety/depression -- cont Ativan 0.5mg TID -- cont Buspar 20mg BID -- increase Cymbalta to 60mg daily -- recommend therapy; referral previously placed -- neuropsychology referral for neurocognitive d/o evaluation RTC: 6 weeks - Crisis planning-- Kimberly Kendall has been [...] counseling/educating patient, ordering medications/tests, documenting clinical information. Hugo Alcantara MD Psychiatry Attending documented in this encounter Plan of Treatment Upcoming Encounters Date Type Specialty Care Team Description 07/14/2022 Laboratory Laboratory Processing [facility] Mobile Home Draw [address] [place] [address] 07/15/2022 [facility] [address] [facility] [place] [address] 09/02/2022 Office Visit Otolaryngology Jazmine Whitehead PA-C [address] [place] [address] 12/02/2022 Office Visit Pulmonary Jesus Bonilla MD [address] [place] [address] Scheduled Procedures Name Priority Associated Diagnoses Date/Ti [...] exists LUNG CANCER SCREENING - USE SMARTSET 27488 Completed 03/16/2022 GARDASIL-HPV IMMUNIZATION SERIES Aged Out [...] Documents on File Type Date Recorded Patient Chief Nurse Executive Expl 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 Advanced Directive 11/02/2011 12:00 AM Care Teams Chain Dyer Relationship Specialty Start Date End Date Roger Alexandra MD [address] [facility] [place] [address] PCP - General Family Medicine 12/29/19 documented as of this encounter
--- OUTSIDE RECORDS SUMMARY | 2023-07-25 04:35 | External Medical Summary | Summary of Care ---
Author Name Unknown Organization [place] [address] Care Team Providers Care Refuge Worker Name Role Phone Roger lAexandra MD Primary Care Provider [phone] Reason for Visit * Reason Onset Date Comments Fax 06/10/2022 Encounter Details Date Type Department Care Team Description 06/10/2022 Telephone Family Practice [facility] [address] [place] [id number] Roger Alexandra MD 132 [facility] [place] [address] Fax Allergies [...] ndications:COPD, group D, by GOLD 2017 classification ([facility] [...] bedtime. 120 Tablet 1 05/11/2022 Active Nystatin 626095 UNIT/GM External Powder (Nyamyc) apply to affected area twice a day 15 g 1 05/19/2022 Active oxygen IN GASIndications:Concrete Precast Moulder 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 respiratory failure (HCC),COPD, group D, [...] encounter Miscellaneous Notes * Telephone Encounter - Mali Benz LPN [...] RUFINA Allen - 06/17/2022 4:48 PM EDT [facility] called stating note that was sent states pt uses oxygen during the day "as needed." Naina states that this needs clarified as pt's insurance will not cover oxygen on an as needed basis. Please send clarification to fax number [phone]. * Telephone Encounter - Kim De Guzman LPN - 06/12/2022 8:55 AM EDT No notes within the time period, but I do have a pulm note from 05/28. Will fax that and hope that helps. * Telephone Encounter - RUFINA Chatterjee - 06/10/2022 4:36 PM EDT Caller requesting the following information to be faxed: Name/Company of caller: Naina from [employer]. Information requested to be faxed: Naina states that they need the patient's face to face notes that are within a 30 day window from the patient's 6 minute walk test on 03/24/22. Naina states that thenotes could be from 02/22/22 to 04/23/22. Fax number: [phone] Attention to Name/Company: Any additional information?: documented in this encounter Plan of Treatment Upcoming Encounters Date Type Specialty Care Team Description 06/22/2022 Telemedicine Psychiatry Hugo Alcantara MD [address] [place] [address] 07/14/2022 Laboratory Laboratory Processing [facility], [facility] Mobile Home Draw [address] [place] [address] 07/15/2022 [facility] [address] [place] [address] 09/02/2022 Office Visit Otolaryngology Jazmine Whitehead PA-C [address] [facility] [place] [address] 12/02/2022 Office Visit Pulmonary [facility] [address] [facility] [place] [address] Scheduled Procedures Name Priority Associated Diagnoses [...] exists LUNG CANCER SCREENING - USE SMARTSET 478[address] Completed 03/16/2022 GARDASIL-HPV IMMUNIZATION SERIES Aged Out [...] Documents on File Type Date Recorded 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
--- OUTSIDE RECORDS SUMMARY | 2023-07-25 04:35 | External Medical Summary | Summary of Care ---
Author Name Unknown Organization [place] [address] Care Team Providers Care Remanufacturing Technician Name Role Phone Roger Alexandra MD Primary Care Provider [phone] Reason for Visit * Reason Onset Date Comments Fax 06/10/2022 Encounter Details Date Type Department Care Team Description 06/10/2022 Telephone Family Practice [facility] [address] [place] [id number] Roger Alexandra MD 132 [facility] [place] [address] Fax Allergies Active Allergy Reactions Severity Noted Date Comments Aspirin Unknown 12/12/2007 von Willebrand's disease Salicylates 03/01/2000 von Willebrand's disease documented as of this encounter (statuses as of 06/19/2022) Medications Medication Sig Dispensed Refills Start Date [...] ndications:COPD, group D, by GOLD 2017 classification ([facility]) Inhale by mouth 1 Puff in [...] bedtime. 120 Tablet 1 05/11/2022 Active Nystatin 311769 UNIT/GM External Powder (Nyamyc) apply to affected area twice a day 15 g 1 05/19/2022 Active oxygen IN GASIndications:Paper Latcher 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 respiratory failure (HCC),COPD, group D, [...] as of this encounter (statuses as of 06/19/2022) Active Problems Problem Noted Date History of [...] as of this encounter (statuses as of 06/19/2022) Resolved Problems Problem Noted Date Resolved Date [...] as of this encounter (statuses as of 06/19/2022) Immunizations Name Administration Dates Next Due H1N1 [...] RUFINA Allen - 06/17/2022 4:48 PM EDT [facility] called stating note that was sent states pt uses oxygen during the day "as needed." Naina states that this needs clarified as pt's insurance will not cover oxygen on an as needed basis. Please send clarification to fax number [phone]. * Telephone Encounter - Kim De Guzman LPN - 06/12/2022 8:55 AM EDT No notes within the time period, but I do have a pulm note from 05/28. Will fax that and hope that helps. * Telephone Encounter - RUFINA Chatterjee - 06/10/2022 4:36 PM EDT Caller requesting the following information to be faxed: Name/Company of caller: Naina from [employer]. Information requested to be faxed: Naina states that they need the patient's face to face notes that are within a 30 day window from the patient's 6 minute walk test on 03/24/22. Naina states that thenotes could be from 02/22/22 to 04/23/22. Fax number: [phone] Attention to Name/Company: Any additional information?: documented in this encounter Plan of Treatment Upcoming Encounters Date Type Specialty Care Team Description 06/22/2022 Telemedicine Psychiatry Hugo Alcantara MD [address] [place] [address] 07/14/2022 Laboratory Laboratory Processing [facility], [facility] Mobile Home Draw [address] [place] [address] 07/15/2022 [facility] [address] 60 [facility] [place] [address] 09/02/2022 Office Visit Otolaryngology Jazmine Whitehead PA-C [address] [place] [address] 12/02/2022 Office Visit Pulmonary Jesus Bonilla MD [address] [place] [address] Scheduled Procedures Name Priority Associated Diagnoses Date/Ti [...] exists LUNG CANCER SCREENING - USE SMARTSET [address] Completed 03/16/2022 GARDASIL-HPV IMMUNIZATION SERIES Aged Out [...] Documents on File Type Date Recorded Patient Hotel Yardperson Expl 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 Advanced Directive 11/02/2011 12:00 AM Care Teams Remanufacturing Technician Relationship Specialty Start Date End Date Roger Alexandra MD 132 [facility] [place] [address] PCP - General Family Medicine 12/29/19 documented as of this encounter
--- OUTSIDE RECORDS SUMMARY | 2023-07-25 04:35 | External Medical Summary | Summary of Care ---
Author Name Unknown Organization [place] [address] Care Team Providers Care Field Party Manager Name Role Phone Roger Alexandra MD Primary Care Provider [phone] Reason for Visit * Reason Onset Date Comments Fax 06/10/2022 Encounter Details Date Type Department Care Team Description 06/10/2022 Telephone Family Practice [facility] [address] [place] [phone] Roger Alexandra MD 132 [facility] [place] [address] Fax Allergies Active Allergy [...] bedtime. 120 Tablet 1 05/11/2022 Active Nystatin 256810 UNIT/GM External Powder (Nyamyc) apply to affected area twice a day 15 g 1 05/19/2022 Active oxygen IN GASIndications:Mincing Machine Operator 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 respiratory failure (HCC),COPD, group [...] COY Allen - 06/18/2022 9:55 AM EDT The 05/28/22 OV note states "oxygen supplementation as above" referencing "Chronic hypoxic respiratory failure requiring 2 L at rest 4 L with exertion, 4 L with sleep" which is consistent with the prescription written for oxygen on the same date. Rx states "Use 2 LPM at rest, 4 LPM with exertion andwith sleep." There is no mention of "oxygen [...] RUFINA Allen - 06/17/2022 4:48 PM EDT [facility] called stating note that was sent states pt uses oxygen during the day "as needed." Naina states that this needs clarified as pt's insurance will not cover oxygen on an as needed basis. Please send clarification to fax number [phone]. * Telephone Encounter - Kim De Guzman LPN - 06/12/2022 8:55 AM EDT No notes within the time period, but I do have a pulm note from 05/28. Will fax that and hope that helps. * Telephone Encounter - RUFINA Chatterjee - 06/10/2022 4:36 PM EDT Caller requesting the following information to be faxed: Name/Company of caller: Naina from [employer]. Information requested to be faxed: Naina states that they need the patient's face to face notes that are within a 30 day window from the patient's 6 minute walk test on 03/24/22. Naina states that thenotes could be from 02/22/22 to 04/23/22. Fax number: [phone] Attention to Name/Company: Any additional information?: documented in this encounter Plan of Treatment Upcoming Encounters Date Type Specialty Care Team Description 06/22/2022 Telemedicine Psychiatry Hugo Alcantara MD [address] [place] [address] 07/14/2022 [address] [facility], [facility] Mobile Home Draw [address] [place] [address] 07/15/2022 [facility] [address] 60 [facility] [place] [address] 09/02/2022 Office Visit Otolaryngology Jazmine Whitehead PA-C [address] [place] [address] 12/02/2022 Office Visit Pulmonary Jesus Bonilla MD [address] [place] [address] Scheduled Procedures Name Priority Associated Diagnoses Date/Ti [...] exists LUNG CANCER SCREENING - USE SMARTSET [address] Completed 03/16/2022 GARDASIL-HPV IMMUNIZATION SERIES Aged Out [...] Documents on File Type Date Recorded Patient Lining Machine Tender Expl 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 Advanced Directive 11/02/2011 12:00 AM Care Teams Field Party Manager Relationship Specialty Start Date End Date Roger Alexandra MD 132 [facility] [place] [address] PCP - General Family Medicine 12/29/19 documented as of this encounter
--- OUTSIDE RECORDS SUMMARY | 2023-07-25 04:35 | External Medical Summary | Summary of Care ---
Author Name Unknown Organization [place] [address] Care Team Providers Care Builder'S Labourer Name Role Phone Roger Alexandra MD Primary Care Provider [phone] Reason for Visit * Reason Onset Date Comments Fax 06/10/2022 Encounter Details Date Type Department Care Team Description 06/10/2022 Telephone Family Practice [facility] [address] [place] [phone] Roger Alexandra MD 132 [facility] [place] [address] Fax Allergies Active Allergy Reactions Severity Noted Date Comments Aspirin Unknown 12/12/2007 von Willebrand's disease Salicylates 03/01/2000 von Willebrand's disease documented as of this encounter (statuses as of 06/17/2022) Medications Medication Sig Dispensed Refills Start Date [...] ([facility]) Inhale by mouth 1 Puff in the [...] bedtime. 120 Tablet 1 05/11/2022 Active Nystatin 251648 UNIT/GM External Powder (Nyamyc) apply to affected area twice a day 15 g 1 05/19/2022 Active oxygen IN GASIndications:Ophthalmology Technician 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 respiratory failure (HCC),COPD, group D, by GOLD 2017 classification ([facility]) Use 2 LPM at rest, 4 LPM [...] as of this encounter (statuses as of 06/17/2022) Active Problems Problem Noted Date History of [...] as of this encounter (statuses as of 06/17/2022) Resolved Problems Problem Noted Date Resolved Date [...] as of this encounter (statuses as of 06/17/2022) Immunizations Name Administration Dates Next Due H1N1 [...] encounter Miscellaneous Notes * Telephone Encounter - Nissa Richter LPN - 06/17/2022 5:12 PM EDT Medicare will not pay for O2 as needed, does pt require oxygen? Pt last saw Dr. Bonilla in May. Please advise * Telephone Encounter - RUFINA Allen - 06/17/2022 4:48 PM EDT [facility] called stating note that was sent states pt uses oxygen during the day "as needed." Naina states that this needs clarified as pt's insurance will not cover oxygen on an as needed basis. Please send clarification to fax number [phone]. * Telephone Encounter - Kim De Guzman LPN - 06/12/2022 8:55 AM EDT No notes within the time period, but I do have a pulm note from 05/28. Will fax that and hope that helps. * Telephone Encounter - RUFINA Chatterjee - 06/10/2022 4:36 PM EDT Caller requesting the following information to be faxed: Name/Company of caller: Naina from [employer]. Information requested to be faxed: Naina states that they need the patient's face to face notes that are within a 30 day window from the patient's 6 minute walk test on 03/24/22. Naina states that thenotes could be from 02/22/22 to 04/23/22. Fax number: [phone] Attention to Name/Company: Any additional information?: documented in this encounter Plan of Treatment Upcoming Encounters Date Type Specialty Care Team Description 06/22/2022 Telemedicine Psychiatry Hugo Alcantara MD [address] [place] [address] 07/14/2022 Laboratory Laboratory Processing [facility], [facility] Mobile Home Draw [address] [place] [address] 07/15/2022 [facility] [address] [place] [address] 09/02/2022 Office Visit Otolaryngology Jazmine Whitehead PA-C 132 [facility] [place] [address] 12/02/2022 Office Visit Pulmonary Jesus Bonilla MD [address] [place] [address] Scheduled Procedures Name Priority Associated Diagnoses Date/Ti [...] exists LUNG CANCER SCREENING - USE SMARTSET [address] Completed 03/16/2022 GARDASIL-HPV IMMUNIZATION SERIES Aged Out [...] on File Type Date Recorded Patient Clinical Nursing Manager Expl 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 Advanced Directive 11/02/2011 12:00 AM Care Teams Builder'S Labourer Relationship Specialty Start Date End Date Roger Alexandra MD [address] [place] [address] [place] [address] PCP - General Family Medicine 12/29/19 documented as of this encounter
--- OUTSIDE RECORDS SUMMARY | 2023-07-25 04:35 | External Medical Summary | Summary of Care ---
Author Name Unknown Organization [place] [address] Care Team Providers Care Subsurface Augmentee Operator Name Role Phone Roger Alexandra MD Primary Care Provider [phone] Reason for Visit * Reason Onset Date Comments Fax 06/10/2022 Encounter Details Date Type Department Care Team Description 06/10/2022 Telephone Family Practice [facility] [address] [place] [id number] Roger Alexandra MD 132 [facility] [place] [address] Fax Allergies Active Allergy [...] bedtime. 120 Tablet 1 05/11/2022 Active Nystatin 934557 UNIT/GM External Powder (Nyamyc) apply to affected area twice a day 15 g 1 05/19/2022 Active oxygen IN GASIndications:Assignment Officer 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 respiratory failure (HCC),COPD, group [...] RUFINA Allen - 06/17/2022 4:48 PM EDT [facility] called stating note that was sent states pt uses oxygen during the day "as needed." Naina states that this needs clarified as pt's insurance will not cover oxygen on an as needed basis. Please send clarification to fax number [phone]. * Telephone Encounter - Kim De Guzman LPN - 06/12/2022 8:55 AM EDT No notes within the time period, but I do have a pulm note from 05/28. Will fax that and hope that helps. * Telephone Encounter - RUFINA Chatterjee - 06/10/2022 4:36 PM EDT Caller requesting the following information to be faxed: Name/Company of caller: Naina from [employer]. Information requested to be faxed: Naina states that they need the patient's face to face notes that are within a 30 day window from the patient's 6 minute walk test on 03/24/22. Naina states that thenotes could be from 02/22/22 to 04/23/22. Fax number: [phone] Attention to Name/Company: Any additional information?: documented in this encounter Plan of Treatment Upcoming Encounters Date Type Specialty Care Team Description 06/22/2022 Telemedicine Psychiatry Hugo Alcantara MD [address] [place] [address] 07/14/2022 Laboratory Laboratory Processing [facility], [facility] Mobile Home Draw [address] [place] [address] 07/15/2022 Anticoagulation Pharmacy [facility] [address] [facility] [place] [address] 09/02/2022 Office Visit Otolaryngology Jazmine Whitehead PA-C [address] [place] [address] 12/02/2022 Office Visit Pulmonary Jesus Bonilla MD [address] [place] [address] Scheduled Procedures Name Priority Associated Diagnoses Date/Ti [...] exists LUNG CANCER SCREENING - USE SMARTSET 53680 Completed 03/16/2022 GARDASIL-HPV IMMUNIZATION SERIES Aged Out [...] Documents on File Type Date Recorded Patient Pen Or Pencil Assembly Machine Operator Expl 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 Advanced Directive 11/02/2011 12:00 AM Care Teams Subsurface Augmentee Operator Relationship Specialty Start Date End Date Roger Alexandra MD 132 [facility] [place] [address] PCP - General Family Medicine 12/29/19 documented as of this encounter
--- OUTSIDE RECORDS SUMMARY | 2023-07-25 04:36 | External Medical Summary | Summary of Care ---
Author Name Unknown Organization [place] [address] Care Team Providers Care Design Director Name Role Phone Roger Alexandra MD Primary Care Provider [phone] Encounter Details Date Type Department Care Team Description 06/11/2022 Orders Only Lab Mobile Phlebotomy [facility] [address] [place] [address] Roger Alexandra MD [address] [place] [address] Idiopathic cardiomyopathy (HCC)*; Paroxysmal atrial fibrillation (HCC) Allergies Active Allergy Reactions Severity Noted Date Comments Aspirin Unknown 12/12/2007 von Willebrand's disease Salicylates 03/01/2000 von Willebrand's disease documented as of this encounter (statuses as of 06/11/2022) Medications Medication Sig Dispensed Refills Start Date [...] Muscle spasms. 90 Tablet 3 02/16/2022 Active LORazepam 0.5 MG Oral Tablet (Ativan) Take by mouth 1 Tablet as needed in the morning AND 1 Tablet as needed at noon AND 1 Tablet as needed in the evening for Anxiety. Do not start before April 23, 2022. 90 Tablet 1 04/23/2022 Active DULoxetine HCl 30 MG Oral Capsule [...] bedtime. 120 Tablet 1 05/11/2022 Active Nystatin 247501 UNIT/GM External Powder (Nyamyc) apply to affected [...] as of this encounter (statuses as of 06/11/2022) Active Problems Problem Noted Date History of [...] as of this encounter (statuses as of 06/11/2022) Resolved Problems Problem Noted Date Resolved Date [...] as of this encounter (statuses as of 06/11/2022) Immunizations Name Administration Dates Next Due H1N1 [...] Encounters Date Type Specialty Care Team Description 06/11/2022 Laboratory Laboratory Processing [facility], [facility] Mobile Home Draw [address] [place] [address] 06/12/2022 [facility] [address] [place] [address] 06/22/2022 Telemedicine Psychiatry Hugo Alcantara MD [address] [place] [address] 09/02/2022 Office Visit Otolaryngology Jazmine Whitehead PA-C [address] [place] [address] 12/02/2022 Office Visit Pulmonary Jesus Bonilla MD [address] [place] [address] Scheduled Orders Name Type Priority Associated Diagnoses Orde r Schedule PT INR Lab Routine Idiopathic cardiomyopathy (HCC) Paroxysmal atrial fibrillation (HCC) Expected: 06/11/2022, Expires: 06/11/2023 Scheduled Procedures Name Priority Associated Diagnoses Date/Ti [...] exists LUNG CANCER SCREENING - USE SMARTSET [id number] Completed 03/16/2022 GARDASIL-HPV IMMUNIZATION SERIES Aged Out [...] encounter Visit Diagnoses Diagnosis Paroxysmal atrial fibrillation (HCC)- Primary Atrial fibrillation Idiopathic cardiomyopathy (HCC) Other primary cardiomyopathies Idiopathic cardiomyopathy (HCC)- Primary Other primary cardiomyopathies Paroxysmal atrial fibrillation (HCC) Atrial fibrillation documented in this encounter Advance Directives Documents on File Type Date Recorded Patient Maritime Pilot Expl 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 Advanced Directive 11/02/2011 12:00 AM Care Teams Design Director Relationship Specialty Start Date End Date Roger Alexandra MD [address] [place] [address] [place] [address] PCP - General Family Medicine 12/29/19 documented as of this encounter
--- OUTSIDE RECORDS SUMMARY | 2023-07-25 04:36 | External Medical Summary | Summary of Care ---
Author Name Unknown Organization [place] [address] Care Team Providers Care Distribution Engineer Name Role Phone Roger Alexandra MD Primary Care Provider [phone] Reason for Visit * Reason Onset Date Comments Fax 06/10/2022 Encounter Details Date Type Department Care Team Description 06/10/2022 Telephone Family Practice [facility] [address] [place] [id number] Roger Alexandra MD 132 [facility] [place] [address] Fax Allergies Active [...] ndications:COPD, group D, by GOLD 2017 classification (REGENCY [...] bedtime. 120 Tablet 1 05/11/2022 Active Nystatin 033534 UNIT/GM External Powder (Nyamyc) apply to affected area twice a day 15 g 1 05/19/2022 Active oxygen IN GASIndications:Mining Speculator 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 respiratory failure (HCC),COPD, group D, [...] Miscellaneous Notes * Telephone Encounter - RUFINA Allen - 06/17/2022 4:48 PM EDT [facility] called stating note that was sent states pt uses oxygen during the day "as needed." Naina states that this needs clarified as pt's insurance will not cover oxygen on an as needed basis. Please send clarification to fax number [phone]. * Telephone Encounter - Kim De Guzman LPN - 06/12/2022 8:55 AM EDT No notes within the time period, but I do have a pulm note from 05/28. Will fax that and hope that helps. * Telephone Encounter - RUFINA Chatterjee - 06/10/2022 4:36 PM EDT Caller requesting the following information to be faxed: Name/Company of caller: Naina from [employer]. Information requested to be faxed: Naina states that they need the patient's face to face notes that are within a 30 day window from the patient's 6 minute walk test on 03/24/22. Naina states that thenotes could be from 02/22/22 to 04/23/22. Fax number: [phone] Attention to Name/Company: Any additional information?: documented in this encounter Plan of Treatment Upcoming Encounters Date Type Specialty Care Team Description 06/22/2022 Telemedicine Psychiatry Hugo Alcantara MD [address] [place] [address] 07/14/2022 Laboratory Laboratory Processing [facility], [facility] Mobile Home Draw [address] [place] [address] 07/15/2022 [facility] [address] [place] [address] 09/02/2022 Office Visit Otolaryngology Jazmine [facility]head [facility]C [facility] [address] 12/02/2022 Office Visit Pulmonary Jesus Bonilla MD [address] [place] [address] Scheduled Procedures Name Priority [...] exists LUNG CANCER SCREENING - USE SMARTSET [address] Completed 03/16/2022 GARDASIL-HPV IMMUNIZATION SERIES Aged Out [...] Documents on File Type Date Recorded Patient Overlock Operator Expl 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 Advanced Directive 11/02/2011 12:00 AM Care Teams Distribution Engineer Relationship Specialty Start Date End Date Roger Alexandra MD [address] [place] [address] PCP - General Family Medicine 12/29/19 documented as of this encounter
--- OUTSIDE RECORDS SUMMARY | 2023-07-25 04:36 | External Medical Summary | Summary of Care ---
Author Name Unknown Organization [place] [address] Care Team Providers Care Lead Security Officer Name Role Phone Roger Alexandra MD Primary Care Provider [phone] Reason for Visit * Reason Onset Date Comments Medication Refill 06/01/2022 Encounter Details Date Type Department Care Team Description 06/01/2022 Telephone Family Practice [facility] [address] [place] [address] Roger Alexandra MD 132 [facility] [place] [address] Medication Refill Allergies Active Allergy Reactions Severity Noted Date Comments Aspirin Unknown 12/12/2007 von Willebrand's disease Salicylates 03/01/2000 von Willebrand's disease documented as of this encounter (statuses as of 06/03/2022) Medications Medication Sig Dispensed Refills Start Date [...] 23, 2022. 90 Tablet 1 04/23/2022 Active traMADol HCl 100 MG Oral TabletIndications:Ch ronic bilateral low back pain without sciatica Take by mouth 100 mg every 8 hours as needed for Pain, Moderate or Pain, Severe. 90 Tablet 0 05/05/2022 Active DULoxetine HCl 30 MG Oral Capsule [...] bedtime. 120 Tablet 1 05/11/2022 Active Nystatin 574843 UNIT/GM External Powder (Nyamyc) apply to affected area twice a day 15 g 1 05/19/2022 Active oxygen IN GASIndications:Chron ic hypoxemic respiratory failure (HCC),COPD, group D, by GOLD 2017 classification ([facility]) Use 2 LPM at rest, 4 LPM with exertion and with sleep. 1 Each 0 2022 Active Hospital, Clinic, or Other Facility Administered [...] as of this encounter (statuses as of 06/03/2022) Active Problems Problem Noted Date History of [...] as of this encounter (statuses as of 06/03/2022) Resolved Problems Problem Noted Date Resolved Date [...] as of this encounter (statuses as of 06/03/2022) Immunizations Name Administration Dates Next Due H1N1 [...] Telephone Encounter - Blanche Polk CPhT - 06/03/2022 3:25 PM EDT Pt calling in to check status of refill. She is requesting high priority as she states she is due. Please advise. Thank you, Blanche Polk Mobile Manager [facility] [address] [facility] 06/03/2022, 3:26 PM * Telephone Encounter - RANDI Jones - 06/01/2022 2:52 PM EDT Pt aware * Telephone Encounter - Roger Alexandra MD - 06/01/2022 12:08 PM EDT Agree. No refills until it's due * Telephone Encounter - Edita Loomis CPhT - 06/01/2022 10:32 AM EDT Pt is calling to request TRAMADOL. It is too early to request this medication pt has been informed the Rx is 30-DS and Day 30 of this Rx is this coming Wednesday06/05/2022 and should not be out of med yet. Please advise. Pt can be reached at [phone]. Thank you, Edita Loomis CPhT Catering Associate [facility] 06/01/2022, 10:34 AM documented in this encounter Plan of Treatment Upcoming Encounters Date Type Specialty Care Team Description 06/11/2022 Laboratory Laboratory Processing [facility], [facility] Mobile Home Draw [address] [place] [address] 06/12/2022 [facility] Pharmacy [facility] [address] [place] [address] 06/22/2022 Telemedicine Psychiatry Hugo Alcantara MD [address] [place], [place] [address] 09/02/2022 Office Visit Otolaryngology Jazmine Whitehead PA-C 132 [facility] [place] [address] 12/02/2022 Office Visit Pulmonary Jesus Bonilla MD [address] [place] [address] Scheduled Procedures Name Priority Associated Diagnoses Date/Ti me COLONOSCOPY FLEXIBLE PROXIMAL DIAGNOSTIC Recall History of colon polyps Health Maintenance Due Date Last Done Comments COVID-19 Vaccine (#1) 1960 Pneumococcal Vaccine: Pediatrics (0 to 5 Years) and At-Risk Patients (6 to 64 Years) (2 - PCV) 03/20/2010 03/20/2009 Zoster Vaccines (1 of 2) 2010 BREAST CANCER SCREENING DISCUSSION YEARLY AGES 40-75 10/28/2016 10/28/2015, 04/27/2014, 05/12/2013, Additional history exists DTaP,Tdap,and Td Vaccines [...] exists LUNG CANCER SCREENING - USE SMARTSET 62333 Completed 03/16/2022 GARDASIL-HPV IMMUNIZATION SERIES Aged Out [...] Documents on File Type Date Recorded Patient Physical Metallurgist Expl 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 Advanced Directive 11/02/2011 12:00 AM Care Teams Lead Security Officer Relationship Specialty Start Date End Date Roger Alexandra MD [address] [place] [address] PCP - General Family Medicine 12/29/19 documented as of this encounter
--- OUTSIDE RECORDS SUMMARY | 2023-07-25 04:36 | External Medical Summary | Summary of Care ---
Author Name Unknown Organization [place] [address] Care Team Providers Care Health Informatics Specialist Name Role Phone Roger Alexandra MD Primary Care Provider [phone] Reason for Visit * Reason Onset Date Comments Medication Refill 06/12/2022 Encounter Details Date Type Department Care Team Description 06/12/2022 Refill Psychiatry, [facility] [address] [place] [address] Hugo Alcantara MD [address] [place], [place] [id number] Allergies Active Allergy Reactions Severity Noted Date Comments Aspirin Unknown 12/12/2007 von Willebrand's disease Salicylates 03/01/2000 von Willebrand's disease documented as of this encounter (statuses as of 06/15/2022) Medications Medication Sig Dispensed Refills Start Date [...] D, by GOLD 2017 classification ([facility]) Inhale by mouth 1 Puff in the [...] bedtime. 120 Tablet 1 05/11/2022 Active Nystatin 869695 UNIT/GM External Powder (Nyamyc) apply to affected area twice a day 15 g 1 05/19/2022 Active oxygen IN GASIndications:Primary Special Educator 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 respiratory failure (HCC),COPD, group D, by GOLD 2017 classification ([facility]) Use 2 LPM at rest, 4 LPM [...] for Anxiety. 90 Tablet 1 06/15/2022 Active LORazepam 0.5 MG Oral Tablet (Ativan) [...] as of this encounter (statuses as of 06/15/2022) Active Problems Problem Noted Date History of [...] as of this encounter (statuses as of 06/15/2022) Resolved Problems Problem Noted Date Resolved Date [...] as of this encounter (statuses as of 06/15/2022) Immunizations Name Administration Dates Next Due H1N1 [...] Telephone Encounter - Hugo Alcantara MD - 06/15/2022 8:43 AM EDT Signed Prescriptions: Disp Refills LORazepam 0.5 MG Oral Tablet (Ativan) 90 Tab*1 Sig: Take by mouth 1 Tablet as needed in the morning AND 1 Tablet as needed at noon AND 1 Tablet as needed in the evening for Anxiety.Authorizing Provider: HUGO ALCANTARA * Telephone Encounter - Kerry Reyes [facility] - 06/13/2022 8:12 AM EDT Pending Prescriptions: Disp Refills LORazepam 0.5 MG Oral Tablet (Ativan) 90 Tab*1 Sig: Take by mouth 1 Tablet as needed in the morning AND 1 Tablet as needed at noon AND 1 Tablet as needed in the evening for Anxiety. * Telephone Encounter - Kerry Reyes RP - 06/13/2022 8:11 AM EDT Telepharmacy is not delegated to approve refills for medications from this specialty. Please approve if appropriate. Thanks, Kerry Reyes Clinical Pharmacist Telepharmacy [phone] 06/13/2022, 8:11 AM * Telephone Encounter - Luis Nava [facility] - 06/12/2022 3:53 PM EDT Did you pend patient's preferred pharmacy and medication before forwarding?yes Pharmacy: [facility] [id number] Pending Prescriptions: Disp Refills LORazepam 0.5 MG Oral Tablet (Ativan) 90 Tab*1 Sig: Take by mouth 1 Tablet as needed in the morning AND 1 Tablet as needed at noon AND 1 Tablet as needed in the evening for Anxiety. Last Visit: 01/23/2022 (in office), 03/14/2021 (telemedicine) Next Visit: Visit date not found If no future appointments scheduled, and last appointment is greater than a year ago, please schedule patient for a follow-up appointment Last date the medication was ordered: 03/30/2022 Is this request for a controlled substance?Yes, What was the last refill date 04/23/2022 w/ quantity 90 and dosage 1ttid and Urine Drug Screen Not completed Urine [...] 10:22 AM HGBA1C 5.7 04/19/2014 12:08 PM Thank you, Cj Nava ([facility]) Sap Business Objects Consultant III Retail Pharmacy Call Center 06/12/2022, 3:53 PM documented in this encounter Plan of Treatment Upcoming Encounters Date Type Specialty Care Team Description 06/16/2022 Laboratory Laboratory Processing [facility], [facility] Mobile Home Draw [address] [place] [address] 06/17/2022 [facility] [address] [place] [address] 06/22/2022 Telemedicine Psychiatry Hugo Alcantara MD [address] [facility] [place] [address] 09/02/2022 Office Visit Otolaryngology Jazmine Whitehead PA-C [address] [facility] [place] [address] 12/02/2022 Office Visit Pulmonary Jesus Bonilla MD [address] [place] [address] Scheduled Procedures Name Priority Associated Diagnoses Date/Ti [...] exists LUNG CANCER SCREENING - USE SMARTSET 84462 Completed 03/16/2022 GARDASIL-HPV IMMUNIZATION SERIES Aged Out [...] Documents on File Type Date Recorded Patient Java Portal Developer Expl 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 Advanced Directive 11/02/2011 12:00 AM Care Teams Health Informatics Specialist Relationship Specialty Start Date End Date Roger Alexandra MD [address] [facility] [place] [address] PCP - General Family Medicine 12/29/19 documented as of this encounter
--- OUTSIDE RECORDS SUMMARY | 2023-07-25 04:36 | External Medical Summary | Summary of Care ---
Author Name Unknown Organization [place] [address] Care Team Providers Care Backing In Machine Tender Name Role Phone Roger Alexandra MD Primary Care Provider [phone] Reason for Visit * Reason Onset Date Comments Medication Refill 06/01/2022 Encounter Details Date Type Department Care Team Description 06/01/2022 Telephone Family Practice [facility] [address] [place] [address] Roger Alexandra MD 132 [facility] [place] [address] Medication Refill Allergies Active Allergy Reactions Severity Noted Date Comments Aspirin Unknown 12/12/2007 von Willebrand's disease Salicylates 03/01/2000 von Willebrand's disease documented as of this encounter (statuses as of 06/01/2022) Medications Medication Sig Dispensed Refills Start Date [...] ications:COPD, group D, by GOLD 2017 classification ([facility]) Inhale by mouth 1 Puff in [...] bedtime. 120 Tablet 1 05/11/2022 Active Nystatin 642635 UNIT/GM External Powder (Nyamyc) apply to affected area twice a day 15 g 1 05/19/2022 Active oxygen IN GASIndications:Chron ic hypoxemic respiratory failure (HCC),COPD, group D, by GOLD 2017 classification ([facility]) Use 2 LPM at rest, 4 [...] [facility]) 2.5 mg NEBULIZER PRN 03/10/2022 03/10/2023 Acti ve Albuterol Sulfate (Proventil) (5 MG/ML) 0.5% *conc* inhalation solution 2.5 mgIndications:Chronic hypoxemic respiratory failure (HCC),COPD, group D, by GOLD 2017 classification (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 Pt can be reached at [phone]. Thank you, Edita Loomis CPhT Test Borer Helper [facility] 06/01/2022, 10:34 AM documented in this encounter Plan of Treatment Upcoming Encounters Date Type Specialty Care Team Description 06/11/2022 Laboratory Laboratory Processing [facility], [facility] Mobile Home Draw [address] [place] [address] 06/12/2022 [facility] [address] [place] [address] 06/22/2022 Telemedicine Psychiatry Hugo Alcantara MD [address] [place], [place] [address] 09/02/2022 Office Visit Otolaryngology Jazmine Whitehead PA-C 132 [facility] [place] [address] 12/02/2022 Office Visit Pulmonary Jesus Bonilla MD [address] [place] [address] Scheduled Procedures Name Priority Associated Diagnoses Date/Ti [...] exists LUNG CANCER SCREENING - USE SMARTSET [address]3246 Completed 03/16/2022 GARDASIL-HPV IMMUNIZATION SERIES Aged Out [...] Documents on File Type Date Recorded Patient Purchasing Department Clerk Expl 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 Advanced Directive 11/02/2011 12:00 AM Care Teams Backing In Machine Tender Relationship Specialty Start Date End Date Roger Alexandra MD [address] [facility] [place] [address] PCP - General Family Medicine 12/29/19 documented as of this encounter
--- OUTSIDE RECORDS SUMMARY | 2023-07-25 04:36 | External Medical Summary | Summary of Care ---
Author Name Unknown Organization [place] [address] Care Team Providers Care Nuclear Supervising Operator Name Role Phone Roger Alexandra MD Primary Care Provider [phone] Reason for Visit * Reason Onset Date Comments Advice 05/29/2022 Encounter Details Date Type Department Care Team Description 05/29/2022 Telephone Family Practice [facility] [address] [place] [address] Roger Alexandra MD 132 [facility] [place] [address] Advice Allergies Active Allergy Reactions Severity Noted Date Comments Aspirin Unknown 12/12/2007 von Willebrand's disease Salicylates 03/01/2000 von Willebrand's disease documented as of this encounter (statuses as of 05/29/2022) Medications Medication Sig Dispensed Refills Start Date [...] bedtime. 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 I recommended calling on Wednesday. Caitlin Mancilla Blueprint Developer [facility] Telepharmacy 05/29/2022 2:30 PM documented in this encounter Plan of Treatment Upcoming Encounters Date Type Specialty Care Team Description 06/11/2022 Laboratory Laboratory Processing [facility] [place] Mobile Home Draw [address] [place] [address] 06/12/2022 [facility] [address] [place] [address] 06/22/2022 Telemedicine Psychiatry Hugo Alcantara MD [address] [place] [address] 09/02/2022 Office Visit Otolaryngology Jazmine Whitehead PA-C [address] [address] 12/02/2022 Office Visit Pulmonary Jesus Bonilla MD [address] [place] [address] Scheduled Procedures Name Priority Associated Diagnoses Date/Ti [...] exists LUNG CANCER SCREENING - USE SMARTSET 53812 Completed 03/16/2022 GARDASIL-HPV IMMUNIZATION SERIES Aged Out No longer eligible based on patient's age to complete this topic MENINGOCOCCAL (MENACTRA/MENVEO) Aged Out No longer eligible based on patient's age to complete this topic documented as of this encounter Implants Not on filedocumented as of this encounter Advance Directives Documents on File Type Date Recorded Patient Supervisor Painting Shipyard Expl 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 Advanced Directive 11/02/2011 12:00 AM Care Teams Nuclear Supervising Operator Relationship Specialty Start Date End Date Roger Alexandra MD [address] [place] [address] [place] [address] PCP - General Family Medicine 12/29/19 documented as of this encounter
--- OUTSIDE RECORDS SUMMARY | 2023-07-25 04:36 | External Medical Summary ---
Author Name Unknown Address Unknown Organization K0G[facility] [address] [place] [address] Laboratory Report Ordering Provider Test Date Status VINAY CHEW 06/16/2022 10:59:00 Final Observation Date Value Abnormality Reference (Units ) Status PT 06/16/2022 10:59:00 25.6 Above high normal 11 .5-14.6 (seconds) Final INR 06/16/2022 10:59:00 2.34 Above high normal 0. 84-1.14 Final Performing Location [facility] [facility] [address] [place] [address]
--- OUTSIDE RECORDS SUMMARY | 2023-07-25 04:36 | External Medical Summary | Summary of Care ---
Author Name Unknown Organization [place] [address] Care Team Providers Care Office Services Manager Name Role Phone Roger Alexandra MD Primary Care Provider [phone] Reason for Visit * Reason Onset Date Comments Fax 06/10/2022 Encounter Details Date Type Department Care Team Description 06/10/2022 Telephone Family Practice [facility] [address] [place] [address] Roger Alexandra MD 132 [facility] [place] [address] Fax Allergies Active Allergy Reactions Severity Noted Date Comments Aspirin Unknown 12/12/2007 von Willebrand's disease Salicylates 03/01/2000 von Willebrand's disease documented as of this encounter (statuses as of 06/12/2022) Medications Medication Sig Dispensed Refills Start Date [...] ications:COPD, group D, by GOLD 2017 classification ([facility] [...] bedtime. 120 Tablet 1 05/11/2022 Active Nystatin 472612 UNIT/GM External Powder (Nyamyc) apply to affected area twice a day 15 g 1 05/19/2022 Active oxygen IN GASIndications:Chron ic hypoxemic respiratory failure (HCC),COPD, group D, by GOLD 2017 classification ([facility]) Use 2 LPM at rest, [...] as of this encounter (statuses as of 06/12/2022) Active Problems Problem Noted Date History of [...] as of this encounter (statuses as of 06/12/2022) Resolved Problems Problem Noted Date Resolved Date [...] as of this encounter (statuses as of 06/12/2022) Immunizations Name Administration Dates Next Due H1N1 [...] be faxed: Name/Company of caller: Naina from [employer]. Information requested to be faxed: Naina states that they need the patient's face to face notes that are within a 30 day window from the patient's 6 minute walk test on 03/24/22. Naina states that thenotes could be from 02/22/22 to 04/23/22. Fax number: [phone] Attention to Name/Company: Any additional information?: documented in this encounter Plan of Treatment Upcoming Encounters Date Type Specialty Care Team Description 06/22/2022 Telemedicine Psychiatry Hugo Alcantara MD [address] [place] [address] 09/02/2022 Office Visit Otolaryngology Jazmine Whitehead PA-C [address] [address] 12/02/2022 Office Visit Pulmonary Jesus Bonilla MD [...] exists LUNG CANCER SCREENING - USE SMARTSET 38259 Completed 03/16/2022 GARDASIL-HPV IMMUNIZATION SERIES Aged Out [...] on File Type Date Recorded Patient Medical Officer Expl 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 Advanced Directive 11/02/2011 12:00 AM Care Teams Office Services Manager Relationship Specialty Start Date End Date Roger Alexandra MD 132 [facility] [place] [id number] PCP - General Family Medicine 12/29/19 documented as of this encounter
--- OUTSIDE RECORDS SUMMARY | 2023-07-25 04:36 | External Medical Summary | Summary of Care ---
Author Name Unknown Organization [place] [address] Care Team Providers Care Muck Farmer Name Role Phone Roger Alexandra MD Primary Care Provider [phone] Reason for Visit * Reason Comments Dosage Adjustment Via Phone (anticoag Cl inic) Encounter Details Date Type Department Care Team Description 06/17/2022 Anticoagulation Pharmacy Call Center [address] [facility] [place] [address] [facility] [address] [place] [address] Anticoagulation management encounter* Allergies Active Allergy Reactions [...] ications:COPD, group D, by GOLD 2017 classification ([facility]) Inhale by mouth 1 Puff in the morning. 60 Blister Dosing Unit 3 02/13/2022 Active Warfarin Sodium 5 MG Oral Tablet (Coumadin)Indication s:Paroxysmal atrial fibrillation ([facility]) Take by mouth 1 Tablet in the [...] bedtime. 120 Tablet 1 05/11/2022 Active Nystatin 568805 UNIT/GM External Powder (Nyamyc) apply to affected area twice a day 15 g 1 05/19/2022 Active oxygen IN GASIndications:Chron ic hypoxemic respiratory failure (HCC),COPD, group D, by GOLD 2017 classification ([facility]) Use 2 LPM at rest, [...] for Anxiety. 90 Tablet 1 06/15/2022 Active Hospital, Clinic, or Other Facility Administered [...] encounter Progress Notes * RUFINA Briseno - 06/17/2022 8:04 AM EDT Contacts Type Contact Phone 06/17/2022 08:03 AM EDT Phone (Outgoing) Kimberly Kendall (Self) [phone] (M) Spoke to Patient Patient Findings Negatives: Signs/symptoms of thrombosis, Signs/symptoms [...] communicated as noted by Pharmacist: Yes RUFINA Briseno 06/17/2022, 8:04 AM * Kim Mercado, [facility] - 06/17/2022 7:52 AM EDT Coumadin Clinic (region specific) Current Warfarin Dose As of 06/17/2022 Warfarin maintenance plan: 5 mg (5 mg x 1) every day INR Result As of 06/17/2022 INR goal: 2.0-3.0 INR used for dosin.34 (06/16/2022) Warfarin Plan As of 06/17/2022 Full warfarin instructions: 5 mg every day No change documented: Kim Mercado RPh Next INR check: 07/14/2022 Repeat PT/INR in 4 week(s) Weekly dose: not changed Additional Dosing Information: Description [facility] Also sent MyG after trying to call Tech to contact patient with dose instructions as noted. Kim Mercado RPh 06/17/2022, 7:53 AM documented in this encounter Plan of Treatment Upcoming Encounters Date Type Specialty Care Team Description 06/22/2022 Telemedicine Psychiatry Hugo Alcantara MD [address] [place] [address] 07/14/2022 Laboratory Laboratory Processing [facility], [facility] Mobile Home Draw [address] [place], [place] [address] 09/02/2022 Office Visit [facility]ol[facility]ology [facility]azmine [facility]head [facility]C [facility] [address] 12/02/2022 Office Visit Pulmonary Jesus Bonilla MD [address] [place] [address] Scheduled Procedures Name Priority Associated Diagnoses [...] exists LUNG CANCER SCREENING - USE SMARTSET 58887 Completed 03/16/2022 GARDASIL-HPV IMMUNIZATION SERIES Aged Out [...] therapeutic drug monitoring documented in this encounter Advance Directives Documents on File Type Date Recorded Patient Fish Hatchery Inspector Expl 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 Advanced Directive 11/02/2011 12:00 AM Care Teams Muck Farmer Relationship Specialty Start Date End Date Roger Alexandra MD [address] [place] [address] PCP - General Family Medicine 12/29/19 documented as of this encounter
--- OUTSIDE RECORDS SUMMARY | 2023-07-25 04:36 | External Medical Summary | Summary of Care ---
Author Name Unknown Organization [place] [address] Care Team Providers Care Bottle Hop Name Role Phone Roger Alexandra MD Primary Care Provider [phone] Reason for Visit * Reason Comments FYI re: resting room air Encounter Details Date Type Department Care Team Description 05/14/2022 Telephone Pulmonary Medicine, [facility] 132 [facility] [place] [address] Alisha Carrero CRNP 132 [facility] [place] [address] FYI (re: resting room air) Allergies Active Allergy Reactions Severity Noted Date Comments Aspirin Unknown 12/12/2007 von Willebrand's disease Salicylates 03/01/2000 von Willebrand's disease documented as of this encounter (statuses as of 2022) Medications Medication Sig Dispensed Refills Start Date [...] 04/23/2022 Active traMADol HCl 100 MG Oral TabletIndications:C [...] before bedtime. 120 Tablet 1 05/11/2022 Active OXYGEN 4 L during the day as needed and at bedtime 0 02/14/2015 2 Discontinue d(Refill) Nystatin 651418 UNIT/GM External Powder (Nyamyc) apply to affected area twice a day 15 g 1 11/04/2021 2 Discontinue d(Refill) Hospital, Clinic, or Other [...] as of this encounter (statuses as of 2022) Active Problems Problem Noted Date History of [...] as of this encounter (statuses as of 2022) Resolved Problems Problem Noted Date Resolved Date [...] as of this encounter (statuses as of 2022) Immunizations Name Administration Dates Next Due H1N1 [...] Telephone Encounter - Airam Ramey LPN - 2022 12:15 PM EDT Done during office visit today. * Telephone Encounter - Jesus Bonilla MD - 05/26/2022 10:17 AM EDT Will do resting room air spo2 at her visit. * Telephone Encounter - Leighton Malcolm RRT - 05/25/2022 2:44 PM EDT Talked to Kathy Pt needs room air SPO2 DOCUMENTED AT 05/28/22 APPOINTMENT. [phone]. Talked to Adrian [phone]. He suggested calling Kathy. Call [facility]. . No testing needed office not sure why this was requested. They have no record of requesting this. Pt has valid script and just got tanks 05/19/22.Pt called and appointment cancelled. Alisha CESPEDES aware. * Telephone Encounter - RUFINA Titus - 05/14/2022 11:40 AM EDT Patient is scheduled for May 27 for 6 min walk * Telephone Encounter - COY Plata - 05/14/2022 10:56 AM EDT Orders placed. She has an upcoming appt with Dr. Bonilla on 2022. * Telephone Encounter - Airam Ramey LPN - 05/14/2022 10:39 AM EDT Kathy from [employer] called to let us know pt needs 6MW (starting on room air and titrating oxygen) and pulmonary to qualify for continued oxygen payment by insurance company. Alisha, please place order for 6mw, starting on room air and titrating as needed. Susanna, please contact pt to schedule 6mw and f/u visit-preferably the same day. I have already spoken with the pt, so she is aware of the reason and will be expecting your call. documented in this encounter Plan of Treatment Upcoming Encounters Date Type Specialty Care Team Description 06/11/2022 Laboratory Laboratory Processing [facility], [facility] Mobile Home Draw [address] [place] [address] 06/12/2022 Anticoagulation Pharmacy Telepharmacy, [facility] [address] [place] [address] 06/22/2022 Telemedicine Psychiatry Hugo Alcantara MD [address] [place] [address] 09/02/2022 Office Visit Otolaryngology Jazmine Whitehead PA-C 132 [facility] [place] [address] 12/02/2022 Office Visit Pulmonary Jesus Bonilla MD [address] [place] [address] Scheduled Orders Name Type Priority Associated Diagnoses Orde r Schedule PULMONARY STRESS TESTING Procedures Routine Chronic hypoxemic respiratory failure (HCC) Expected: 05/14/2022, Expires: 06/13/2023 Scheduled Procedures Name Priority Associated Diagnoses Date/Ti [...] ASSESSMENT COMPLETED IN PAST YEAR FOR COPD 03/24/2023 2022 Diabetes Screening 01/15/2025 01/15/2022, 0 01/08/2022, 01/03/2022, Additional history exists COLONOSCOPY-EVERY 5 YRS AGES 18-100 11/12/2025 11/12/2020, 05/22/2013, 08/21/2011, Additional history exists LUNG CANCER SCREENING - USE SMARTSET 45045 Completed 03/16/2022 GARDASIL-HPV IMMUNIZATION SERIES Aged Out [...] Documents on File Type Date Recorded Patient Bank Appraiser Expl 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 Advanced Directive 11/02/2011 12:00 AM Care Teams Bottle Hop Relationship Specialty Start Date End Date Roger Alexandra MD 132 [facility] [place] [address] PCP - General Family Medicine 12/29/19 documented as of this encounter
--- OUTSIDE RECORDS SUMMARY | 2023-07-25 04:36 | External Medical Summary | Summary of Care ---
Author Name Unknown Organization [place] [address] Care Team Providers Care Inspector Motor Vehicles Name Role Phone Jeevan Mclean MD Primary Care Provider [phone] Reason for Visit * Reason Comments eRx-Medication Refill Encounter Details Date Type Department Care Team Description 06/03/2022 Refill Family Practice [facility] [address] [place] [id number] Jeevan Mclean MD 132 [facility] [place] [address] Chronic bilateral low back pain without sciatica Allergies Active Allergy Reactions Severity Noted Date Comments Aspirin Unknown 12/12/2007 von Willebrand's disease Salicylates 03/01/2000 von Willebrand's disease documented as of this encounter (statuses as of 06/04/2022) Medications Medication Sig Dispensed Refills Start Date [...] 2017 classification ([facility]) Inhale by mouth 1 Puff in [...] Muscle spasms. 90 Tablet 3 2 Active LORazepam 0.5 MG Oral Tablet (Ativan) Take by mouth 1 Tablet as needed in the morning AND 1 Tablet as needed at noon AND 1 Tablet as needed in the evening for Anxiety. Do not start before April 23, 2022. 90 Tablet 1 2 Active DULoxetine HCl 30 MG Oral Capsule Delayed Release Particles (Cymbalta) Take by mouth 1 Capsule in the morning. 30 Capsule 1 2 Active Mirtazapine 30 MG Oral Tablet (Remeron) Take by mouth 1 Tablet before bedtime. 30 Tablet 2 2 Active busPIRone HCl 10 MG Oral Tablet (Buspar) Take by mouth 2 Tablets in the morning AND 2 Tablets before bedtime. 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 1 Each 0 2 Active traMADol HCl 100 MG Oral TabletIndications:C hronic bilateral low back pain without sciatica take 1 tablet by mouth every 8 hours if needed for MODERATE TO SEVERE PAIN 90 Tablet 0 2 Active traMADol HCl 100 MG Oral TabletIndications:C hronic bilateral low back pain without sciatica Take by mouth 100 mg every 8 hours as needed for Pain, Moderate or Pain, Severe. 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 0 [...] as of this encounter (statuses as of 06/04/2022) Immunizations Name Administration Dates Next Due H1N1 [...] encounter Miscellaneous Notes * Telephone Encounter - Yumiko Francisco RPh - 06/04/2022 12:42 PM EDT Signed Prescriptions: Disp Refills traMADol HCl 100 MG Oral Tablet 90 Tab*0 Sig: take 1 tablet by mouth every 8 hours if needed for MODERATE TO SEVERE PAINAuthorizing Provider: JEEVAN MCLEAN-- * Telephone Encounter - Jeevan Mclean MD - 06/04/2022 12:30 PM EDT Signed Prescriptions: Disp Refills traMADol HCl 100 MG Oral Tablet 90 Tab*0 Sig: take 1 tablet by mouth every 8 hours if needed for MODERATE TO SEVERE PAIN Authorizing Provider: JEEVAN MCLEAN * Telephone Encounter - Yuliet Purvis [facility] - 06/04/2022 11:13 AM EDT Pending Prescriptions: Disp Refills traMADol HCl 100 MG Oral Tablet [Pharmacy*90 Tab*0 Sig: take 1 tablet by mouth every 8 hours if needed for MODERATE TO SEVERE PAIN * Telephone Encounter - Yuliet Purvis [facility] - 06/04/2022 11:13 AM EDT I have reviewed the patients controlled substance dispensing history in the Prescription Drug Monitoring Program in compliance with the [facility] regulations before prescribing a controlled substance. PDMP checked on 06/04/2022. Pending Prescriptions: Disp Refills traMADol HCl 100 MG Oral Tablet [Pharmacy*90 Tab*0 Sig: take 1 tablet by mouth every 8 hours if needed for MODERATE TO SEVERE PAIN Last Visit: 01/23/2022 (in office), 03/14/2021 (telemedicine) Next Visit: Visit date not found Date medication was last filled: 05/07 Date medication is due for refill: 06/05 Pharmacy: [facility] [place] [address] Is this request for a controlled substance? [...] in Results Review. Please approve if appropriate. Thank you, Yuliet Purvis PharmD. Clinical Pharmacist Pharmacy Refill Call Center 06/04/2022, 11:13 AM * Telephone Encounter - DANIEL Olmstead - 06/04/2022 11:08 AM EDT Pt is out of medication Did you pend patient's preferred pharmacy and medication before forwarding?yes Pharmacy: [email or web address] [place] [address] Pending Prescriptions: Disp Refills traMADol HCl 100 MG Oral Tablet [Pharmacy*90 Tab*0 Sig: take 1 tablet by mouth every 8 hours if needed for MODERATE TO SEVERE PAIN Last Visit: 01/23/2022 (in office), 03/14/2021 (telemedicine) Next Visit: Visit date not found If no future appointments scheduled, and last appointment is greater than a year ago, please schedule patient for a follow-up appointment Last date the medication was ordered: 05/05/2022 Is this request for a controlled substance?Yes, What was the last refill date 05/05/2022 w/ [id number] and dosage 100mg and Urine Drug Screen was completed Urine Drug [...] Care Team Description 06/11/2022 Laboratory Laboratory Processing [facility], [facility] Mobile Home Draw [address] [place] [address] 06/12/2022 [facility] [address] [place] [address] 06/22/2022 Telemedicine Psychiatry Hugo Alcantara MD [address] [place] [address] 09/02/2022 Office Visit Otolaryngology Jazmine Whitehead PA-C 132 [facility] [place] [address] 12/02/2022 Office Visit Pulmonary Jesus Bonilla MD [address] [place] [address] Scheduled Procedures Name Priority Associated Diagnoses Date/Ti [...] exists LUNG CANCER SCREENING - USE SMARTSET 417[address] Completed 03/16/2022 GARDASIL-HPV IMMUNIZATION SERIES Aged Out [...] Documents on File Type Date Recorded Patient Hammerer Tab Expl 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 Advanced Directive 11/02/2011 12:00 AM Care Teams Inspector Motor Vehicles Relationship Specialty Start Date End Date Jeevan Mclean MD [address] [place] [address] [place] [address] PCP - General Family Medicine 12/29/19 documented as of this encounter
--- OUTSIDE RECORDS SUMMARY | 2023-07-25 04:37 | External Medical Summary | Summary of Care ---
Author Name Unknown Organization [place] [address] Care Team Providers Care Assistant Restaurant General Manager Name Role Phone Roger Alexandra MD Primary Care Provider [phone] Reason for Referral * (Within 10 days (routine)) - Authorized Specialty Diagnoses / Procedures Referred By Contac t Referred To Contact Radiology Diagnoses History of tobacco abuse Procedures CT CHEST LOW DOSE SCAN LUNG CANCER SCREEN INITIAL LUNG CANCER SCREENING PROGRAM REFERRAL Jesus Bonilla MD [address] [address] Referral ID Status Reason Start Date Expiration Date V isits Requested Visits Authorized [id number] Authorized 2023 999 999 Reason for Visit * Reason Comments Follow Up Encounter Details Date Type Department Care Team Description 2022 Office Visit Pulmonary Medicine, [facility] [address] [facility] [address] [place] [address] Jesus Bonilla MD [address] [address] Chronic hypoxemic respiratory failure (HCC)*; COPD, group D, by GOLD 2017 classification (HCC); Chronic diastolic CHF (congestive heart failure) (HCC); Morbid obesity due to excess calories (HCC); Paroxysmal atrial fibrillation (HCC); Obstructive sleep apnea; History of 2019 novel coronavirus disease (COVID-19); History of tobacco abuse Allergies Active Allergy [...] bedtime. 120 Tablet 1 05/11/2022 Active Nystatin 200227 UNIT/GM External Powder (Nyamyc) apply to affected area twice a day 15 g 1 05/19/2022 Active oxygen IN GASIndications:[employer] 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 respiratory failure (HCC),COPD, group D, by GOLD 2017 classification ([facility]) Use 2 LPM at rest, 4 LPM with exertion and with sleep. 1 Each 0 2022 Active OXYGEN 4 L during the day as needed and at bedtime 0 02/14/2015 2 Discontinue d(Refill) Hospital, Clinic, or Other [...] Reading Time Taken Comments Blood Pressure 142/82 2022 10:37 AM EDT Pulse 113 2022 10:37 AM EDT Temperature 37.1 C (98.7 F) 2022 1 0:37 AM EDT Respiratory Rate 20 2022 10:3 7 AM EDT Oxygen Saturation 91% 2022 10: 57 AM EDT O2 2LPM, rest Inhaled Oxygen Concentration - - Weight 120.2 kg (265 lb) 2022 10: 37 AM EDT Height 158.8 cm (5' 2.5") 2022 10 :37 AM EDT Body Mass Index 47.7 2022 10:37 AM EDT documented in this encounter Patient Instructions * Patient Instructions* Jesus Bonilla MD - 2022 10:54 AM EDT Kimberly Kendall [id number] Benefits of Quitting Smoking Why should I quit smoking? Smoking is bad for you and bad for others around you. Smoking causes cancer, heart attacks, hardening of the arteries, bronchitis, emphysema, cough, shortness of breath, wrinkles, and premature aging. It stains teeth and fingers, irritates the eyes, furs the tongue, and causes bad breath. People are living longer today than their parents did, so it makes sense to work on staying healthy and independent. One of the best ways to do this is to quit smoking. Benefits of quitting smoking It takes time to reverse many years' worth of smoking damage to your body, but some benefits of quitting smoking begin immediately. For example, you're financially better off on day one. Your health starts to improve right away, too, because you remove a former constant source of irritation from your lungs. People may comment that you no longer cough. Your blood circulation is likely to improve, so your hands and feet may feel warmer. Your teeth, breath, and fingers are no longer a turn-off. Benefits that you're less aware of also begin to occur. These include better resistance to colds and respiratory infections, less likelihood of major heart and circulation problems, less risk of high blood pressure or stroke, and less risk of developing cancer. The following arguments are often presented by smokers as justifications for their continuing to smoke: "I have to sometime, so I might as well enjoy life until then." True, but as a smoker you're much more likely to of a heart attack or cancer - neither of whichare very pleasant ways to go. "I'm only hurting myself." True, if you don't count the heartache and grief you may cause your loved ones by your early or permanent disability, or the damage of your smoke to others. "Lots of people who smoke live to ripe old ages in perfect health." True, but this is rare. Nearly all smokers have significant health problems. "Smoking is one of my pleasures. I don't want to quit." Smoking is associated with pleasure because the nicotine in tobacco is an addictive drug. Your bodywill continue to crave a regular supply until you can overcome the habit. Smoking is always a disadvantage to your health and that of your loved ones. "It's my choice and I choose to smoke." True. It is your choice. In a survey of older former smokers, more than 90% quit on their own because they decided to do so. The main reasons they gave for quitting were wanting to stay healthy, following health care provider's advice, regaining control of their lives, and making a loved one happy . [place] Department of Health Quit Line [facility] Cancer Society Free Quitline 5-187 QUIT NOW ( ) Your insurance company may also have more information and helpful programs to help you quit. Some may even help cover some of the costs. For example, [employer] members can call to find out about their smoking cessation program and medication coverage. Developed by Traci Bo MD, for [employer]. Published by [employer]. Last modified: 2006-03-26 Last reviewed: 2006-01-13 This content is reviewed periodically and is subject to change as new health information becomes available. The information is intended to inform and educate and is not a replacement for medical evaluation, advice, diagnosis or treatment by a healthcare professional. Adult Health Advisor 2006.4 Index Adult Health Advisor 2006.4 Credits Copyright 2006 [employer] and/or one of its subsidiaries. All Rights Reserved. documented in this encounter Progress Notes * Jesus Bonilla MD - 2022 10:39 AM EDT PULMONARY PROGRESS NOTE REFERRING PHYSICIAN: Roger Alexandra MD HPI: 62-year-old female history of multifactorial shortness of breath, COPD gold you class D, chronic hypoxic respiratory failure, COVID-19 pneumonia, chronic heart failure preserved EF, morbid obesity, physical deconditioning, RUFINA refuses CPAP, atrial fibrillation, tobacco use and embolic CVA and chronic Coumadin here for routine follow-up. Patient last seen 02/2022. 88% on room air rest on this visit. Feels stable. Poor sleep. Tried to do nox ox and it fell off several times and she didn't replace. She has a chronic drycoughs She denies sputum She has some wheezes- good days and bad days She has nightly night time cough She denies hemoptysis She becomes short of breath after mminimal exertion such as walking from bed to bathroom (6 steps) or doing ADLs such as showering. She has had 1 ER visits/hospitalization and 1 courses of prednisone related to their breathing in the past year She is a former smokes. 2pdd from age 13 until 59. Quit 2018. She has hx of pneumonia She current inhalers are trelegy and prn albuterol. Using albuterol using 3xs daily. She denies history of hay fever/seasonal allergies Past Medical History: Diagnosis Date Back disorder Benign neoplasm of colon 10/06/10 adenomatous/repeat colonoscopy in 1 yr Chronic bilateral low back pain without sciatica 10/14/2020 COPD (chronic obstructive pulmonary disease) ([facility]) COPD, mild ([facility]) 04/06/2007 COPD, severe ([facility]) 04/06/2007 Depressive disorder, not elsewhere classified Drug-seeking behavior 10/17/2020 Generalized osteoarthritis History of multiple strokes 10/17/2020 History of narcotic addiction ([facility]) 12/19/2021 Hyperplastic colonic polyp Hypothyroidism 04/16/2015 Malaise and fatigue Mixed dyslipidemia Moderate episode of recurrent major depressive disorder (HCC) 03/05/2020 Morbid obesity due to excess calories (HCC) 03/05/2020 Narcotic addiction (HCC) 10/04/2014 Non compliance w medication regimen 10/14/2020 Oxygen dependent 12/29/2019 Paroxysmal atrial fibrillation (HCC) 10/14/2020 Patent foramen ovale PTSD (post-traumatic stress disorder) 03/05/2021 Schizoaffective disorder, chronic condition ([facility]) followed Dr Robby Diego [facility] Sequelae, post-stroke CVA Status asthmaticus Von Willebrand's disease (HCC) Past Surgical History: Procedure Laterality Date COLONOSCOPY, DIAGNOSTIC (RECTUM) 11/12/2020 large adenomatous polyp, repeat 6 mo / [facility] COLONOSCOPY, W/BIOPSY 10/06/2010 adenomatous/repeat colonoscopy in 1 yr COLONOSCOPY, W/BIOPSY 05/22/2013 hyperplastic polyp EGD, FLEXIBLE, DIAGNOSTIC 02/26/2015 retained food/[facility] EGD, FLEXIBLE, DIAGNOSTIC 11/12/2020 Gastric submucosal mass / [facility] EGD, FLEXIBLE, DIAGNOSTIC 11/06/2020 gastritis / [facility] EGD, FLEXIBLE, W/BIOPSY 05/19/2013 EGD, W/ENDOSCOPIC US 11/05/2011 UPPER GI ENDOSCOPY ENDOSCOPIC ULTRASOUND performed by BERENICE ASHBY at [facility]; REPAIR INITIAL INGUINAL HERNIA REMOVE GALLBLADDER TOTAL HYSTERECTOMY and bso Allergies: Aspirin and Salicylates Current Outpatient Medications Medication Sig Dispense Refill OXYGEN 4 L during the day as needed and at bedtime Disposable Brief X-Large Attends X-Large Super Absorb [...] Ellipta 100-62.5-25 MCG/INH Aerosol Powder Breath Activated (aolrgmxccch-fofculcnwxty-jcsexacqmf) Inhale by mouth 1 Puff in the [...] evening for Muscle spasms. 90 Tablet 3 LORazepam 0.5 MG Oral Tablet (Ativan) Take by mouth 1 Tablet as needed in the morning AND 1 Tablet as needed at noon AND 1 Tablet as needed in the evening for Anxiety. Do not start before April. 90 Tablet 1 traMADol HCl 100 MG Oral Tablet Take by mouth 100 mg every 8 hours as needed for Pain, Moderateor Pain, Severe. 90 Tablet 0 DULoxetine HCl 30 MG Oral Capsule Delayed Release Particles (Cymbalta) Take by mouth 1 Capsule in the morning. 30 Capsule 1 Mirtazapine 30 MG Oral Tablet (Remeron) Take by mouth 1 Tablet before bedtime. 30 Tablet 2 busPIRone HCl 10 MG Oral Tablet (Buspar) Take by mouth 2 Tablets in the morning AND 2 Tablets before bedtime. 120 Tablet 1 Nystatin 552080 UNIT/GM External Powder (Nyamyc) apply to affected area twice a day 15 g 1 Current Facility-Administered Medications Medication Dose [...] SYSTEMS REVIEW: REVIEW OF SYSTEMS CONSTITUTIONAL ROS: +change in weight, +weakness, +fatigue and No fevers, + sweats, no chills EYE ROS: No recent significant change [...] see HPI CARDIOVASCULAR ROS: No chest pain, +orthopnea, +paroxysmal nocturnal dyspnea, +edema, No palpitations and No syncope GASTROINTESTINAL ROS: [...] and No Food Allergies PHYSICAL EXAM: BP 142/82 | Pulse 113 | Temp 37.1 C (98.7 F) (Tympanic) | Resp 20 | Ht 1.588 m (5' 2.5") | Wt 120.2 kg (265 lb) | BMI 47.70 kg/m | BSA 2.3 m GEN: Morbidly obese middle-aged female, sitting in wheelchair, no acute distress,, speaking in complete sentences HEENT: eyes perrla, trachea midline, thick squat neck, non-boggy nasal turbinates and no nasal drainage. CHEST: no respiratory distress, no retractions, or abdominal breathing. Lungs decreased breath sounds and scattered wheezing. No egophony, ribs nontender to palpation. CVS: S1,S2 normal, regular rate and rhythm, no murmurs, rubs or gallops ABD: soft, nontender, protuberant with large pannus, +BS, no organomegaly EXT: 1+ pitting and nonpitting edema in lower extremities bilaterally, posterior tibial and radial pulses 2+ bilaterally, no clubbing in fingers or toes. SKIN: no lesions or rashes, warm, dry Neuro: alert, oriented to person, place and time. Rest of exam nonfocal, GCS 15. ADENOPATHY: no cervical or axillary adenopathy OTHER: rest of exam unremarkable DATA Exercise oximetry from 03/2022. Patient was 86% [...] documented on prior echocardiogram July 04, 2012. Other: Interm History/Respiratory Symptoms Cough: occasional, dry Hemoptysis: no Sinus Symptoms: no Hospitalizations: no ED Trips: no Triggers: exertion, humidity Nocturnal: occasional sob, sleeps with her head elevated CPAP/BiPAP/O2: O2 4LPM continuous Flu Vaccine: 2020 Pneumovax: 2009 Prevnar: no COVID 19: no Mmrc Cat Question 2022 10:42 AM EDT - Filed by Airam Ramey LPN When do you become breathless? (4) I am too breathless to leave the house or I am breathless when dressing How frequently do you cough? (2) Do you have phlegm in your chest? (0) - I have no phlegm (mucus) in my chest Is your chest tight? (3) How breathless do you become when walking up a hill or steps? (5) - When I walk up a hill or oneflight of stairs I am very breathless How limited are you doing activities at home? (5) - I am very limited doing activities at home How confident are you leaving home with your lung condition? (2) How soundly do you sleep? (2) How much energy do you have? (5) - I have no energy at all Total MMRC Score (range: 0 - 4) 4 Total CAT Score (range: 0 - 40) 24 Assessment: 1. Shortness of breath, multifactorial secondary to COPD, morbid obesity, deconditioning, chronic heart failure. 2. COPD gold you class D, smoking-related, emphysematous phenotype, 1 recent flare requiring hospitalization, M MRC 4, CT score 24 3. Chronic heart failure preserved EF, euvolemic on exam 4 history of COVID-19 pneumonia most recent imaging with resolved changes. 5. Chronic hypoxic respiratory failure requiring 2 L at rest 4 L with exertion, 4 L with sleep. Shewas 88% on room air at rest, 91% on 2 L NC at rest. 6.p atrial fibrillation 7. Embolic CVA 8. Morbid obesity Body mass index is 47.7 kg/m. 9. RUFINA in refuses CPAP. Patient will think by history 1 CPAP not yet ready to commit. 10. History tobacco dependence quit 2019. Two packs per day from age 13 until 59. Recommendations and Plans: -lung cancer screening program referral- due 03/2023 -The following information was reviewed/discussed with the patient: ? Benefits & harms of screening ? Potential indications for follow-up testing, if/when necessary ? Risk of over-diagnosis, false positive findings, and radiation exposure ? Importance of cigarette smoking abstinence, if applicable ? Annual adherence to lung cancer screening ? Impact of comorbidities and ability or willingness to undergo diagnostic testing and/or treatmentif something concerning is identified during screening. -continue Trelegy, p.r.n. albuterol -weight management counseling done today. -as discussed above patient refuses sleep evaluation -oxygen supplementation as above -continue diuretics -follow-up in 6 months, in person, sooner needed -all the patient's and her granddaughters questions and concerns were addressed their apparent satisfaction I spent more than 50% of the 25 minute visit counseling and coordinating care. Jesus Bonilla MD Pulmonary Medicine, [address] [place] [address] documented in this encounter Nursing Notes * Airam Ramey LPN - 2022 10:32 AM EDT Pt is here for f/u SOB, COPD, COVID pneumonia, AFib, tobacco use, embolic CVA, RUFINA - refuses CPAP, chronic hypoxic resp failure, CHF, morbid obesity, and physical deconditioning. Interm History/Respiratory Symptoms Cough: occasional, dry Hemoptysis: no Sinus Symptoms: no Hospitalizations: no ED Trips: no Triggers: exertion, humidity Nocturnal: occasional sob, sleeps with her head elevated CPAP/BiPAP/O2: O2 4LPM continuous Flu Vaccine: 2020 Pneumovax: 2008 Prevnar: no COVID 19: no Mmrc Cat Question 2022 10:42 AM EDT - Filed by Airam Ramey LPN When do you become breathless? (4) I am too breathless to leave the house or I am breathless when dressing How frequently do you cough? (2) Do you have phlegm in your chest? (0) - I have no phlegm (mucus) in my chest Is your chest tight? (3) How breathless do you become when walking up a hill or steps? (5) - When I walk up a hill or one flight of stairs I am very breathless How limited are you doing activities at home? (5) - I am very limited doing activities at home How confident are you leaving home with your lung condition? (2) How soundly do you sleep? (2) How much energy do you have? (5) - I have no energy at all Total MMRC Score (range: 0 - 4) 4 Total CAT Score (range: 0 - 40) 24 documented in this encounter Plan of Treatment Upcoming Encounters Date Type Specialty Care Team Description 06/11/2022 Laboratory Laboratory Processing [facility], [facility] Mobile Home Draw [address] [place] [address] 06/12/2022 [facility] [address] [place] [address] 06/22/2022 Telemedicine Psychiatry Hugo Alcantara MD [address] [place], [place] [id number] 09/02/2022 Office Visit Otolaryngology Jazmine Whitehead PA-C [address] [facility] [address] [place] [address] 12/02/2022 Office Visit Pulmonary Jesus Bonilla MD [address] [id number] Scheduled Orders Name Type Priority Associated Diagnoses Orde r Schedule CT CHEST LOW DOSE SCAN LUNG CANCER SCREEN INITIAL Medical Imaging Routine History of tobacco abuse Expected: 2023, Expires: 06/28/2023 Scheduled Procedures Name Priority Associated Diagnoses Date/Ti [...] COMPLETED IN PAST YEAR FOR COPD 03/24/2023 03/24/2022 Diabetes Screening 01/15/2025 01/15/2022, 0 01/08/2022, 01/03/2022, Additional history exists COLONOSCOPY-EVERY 5 YRS AGES 18-100 11/12/2025 11/12/2020, 05/22/2013, 08/21/2011, Additional history exists LUNG CANCER SCREENING - USE SMARTSET [id number] Completed 03/16/2022 GARDASIL-HPV IMMUNIZATION SERIES Aged Out No longer eligible based on patient's age to complete this topic MENINGOCOCCAL (MENACTRA/MENVEO) Aged Out No longer eligible based on patient's age to complete this topic documented as of this encounter Implants Not on filedocumented as of this encounter Visit Diagnoses Diagnosis Chronic hypoxemic respiratory failure (HCC)- Primary Chronic respiratory failure COPD, group D, by GOLD 2017 classification (HCC) Chronic diastolic CHF (congestive heart failure) (HCC) Chronic diastolic heart failure Morbid obesity due to excess calories (HCC) Paroxysmal atrial fibrillation (HCC) Atrial fibrillation Obstructive sleep apnea Obstructive sleep apnea (adult) (pediatric) History of 2019 novel coronavirus disease (COVID-19) History of tobacco abuse Personal history of tobacco use, presenting hazards to health documented in this encounter Advance Directives Documents on File Type Date Recorded Patient Home Economist Expl 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 Advanced Directive 11/02/2011 12:00 AM Care Teams Assistant Restaurant General Manager Relationship Specialty Start Date End Date Roger Alexandra MD [address] [facility] [address] [place] [address] PCP - General Family Medicine 12/29/19 documented as of this encounter
--- OUTSIDE RECORDS SUMMARY | 2023-07-25 04:37 | External Medical Summary | Summary of Care ---
Author Name Unknown Organization [place] [address] Care Team Providers Care Curatorial Specialist Name Role Phone Roger Alexandra MD Primary Care Provider [phone] Reason for Visit * Reason Onset Date Comments Appointment 05/14/2022 needs 6MW and pu lm visit Encounter Details Date Type Department Care Team Description 05/14/2022 Telephone Pulmonary Medicine, [facility] [address] [facility] [address] [place] [address] Alisha Carrero CRNP [address] [facility] [address] [place] [address] Appointment (needs 6MW and pulm visit) Allergies Active Allergy Reactions Severity Noted Date Comments Aspirin Unknown 12/12/2007 von Willebrand's disease Salicylates 03/01/2000 von Willebrand's disease documented as of this encounter (statuses as of 05/25/2022) Medications Medication Sig Dispensed Refills Start Date End Date Status OXYGEN 4 L during the day as needed and at bedtime 0 02/14/2015 Active Disposable Brief X-LargeIndications: Overactive bladder Attends [...] bedtime. 120 Tablet 1 05/11/2022 Active Nystatin 672905 UNIT/GM External Powder (Nyamyc) apply to affected [...] as of this encounter (statuses as of 05/25/2022) Active Problems Problem Noted Date History of [...] 03/05/2020 Morbid obesity due to excess calories Oxygen dependent 12/29/2019 Acquired hypothyroidism 04/16/2015 Idiopathic cardiomyopathy 09/15/2013 Von Willebrand disease 03/10/2013 Obstructive sleep apnea 07/05/2007 Overview: ICD-10 update of inactive term SIMA (generalized anxiety disorder) 02/08 Irritable bowel syndrome with diarrhea 0 04/13/2001 documented as of this encounter (statuses as of 05/25/2022) Resolved Problems Problem Noted Date Resolved Date [...] as of this encounter (statuses as of 05/25/2022) Immunizations Name Administration Dates Next Due H1N1 2009 Influenza, IM 12/19/2009 Pneumococcal Polysaccharide PPV23 (Pneumovax) 03/20/2009 Seasonal Influenza, Quadriva lent, No Preserve, 6 [...] encounter Miscellaneous Notes * Telephone Encounter - Leighton Malcolm RRT - 05/25/2022 2:44 PM EDT [facility]. . No testing needed [...] - 05/14/2022 10:39 AM EDT Kathy from DENTAL SPECIALIST called to let us know pt needs [...] Encounters Date Type Specialty Care Team Description 2022 Office Visit Pulmonary [facility] Bonilla [facility] [address] [place] [address] 06/11/2022 Laboratory Laboratory Processing [facility], [facility] Mobile Home Draw [address] [place], [place] [id number] 06/12/2022 [facility] [address] [place] [address] 06/22/2022 Telemedicine Psychiatry Hugo Alcantara MD [address] [place] [address] 09/02/2022 Office Visit Otolaryngology Jazmine Whitehead PA-C [address] [facility] [place] [address] Scheduled Orders Name Type Priority Associated Diagnoses [...] exists LUNG CANCER SCREENING - USE SMARTSET 19815 Completed 03/16/2022 GARDASIL-HPV IMMUNIZATION SERIES Aged Out [...] Documents on File Type Date Recorded Patient Cart Attendant Expl 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 Advanced Directive 11/02/2011 12:00 AM Care Teams Curatorial Specialist Relationship Specialty Start Date End Date Roger Alexandra MD [address] [place] [address] PCP - General Family Medicine 12/29/19 documented as of this encounter
--- OUTSIDE RECORDS SUMMARY | 2023-07-25 04:37 | External Medical Summary | Summary of Care ---
Author Name Unknown Organization [place] [address] Care Team Providers Care Extruding Department Supervisor Name Role Phone Roger Alexandra MD Primary Care Provider [phone] [phone] Reason for Visit * Reason Comments FYI re: resting room air Encounter Details Date Type Department Care Team Description 05/14/2022 Telephone Pulmonary Medicine, [facility] 132 [facility] [place] [address] Alisha Carrero CRNP 132 [facility] [place] [address] FYI (re: resting room air) Allergies Active Allergy Reactions Severity Noted Date Comments Aspirin Unknown 12/12/2007 von Willebrand's disease Salicylates 03/01/2000 von Willebrand's disease documented as of this encounter (statuses as of 05/27/2022) Medications Medication Sig Dispensed Refills Start Date [...] bedtime. 120 Tablet 1 05/11/2022 Active Nystatin 646778 UNIT/GM External Powder (Nyamyc) apply to affected [...] as of this encounter (statuses as of 05/27/2022) Active Problems Problem Noted Date History of [...] as of this encounter (statuses as of 05/27/2022) Resolved Problems Problem Noted Date Resolved Date [...] Atrial septal aneurysm 02/04/2006 9 long term current use 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 0 06/01/2005 [...] as of this encounter (statuses as of 05/27/2022) Immunizations Name Administration Dates Next Due H1N1 [...] room air SPO2 DOCUMENTED AT 05/28/22 APPOINTMENT. [phone]. Talked to Adrian [phone]. He suggested calling Kathy. Call [facility]. [...] - 05/14/2022 10:39 AM EDT Kathy from [facility] called to let us know pt needs [...] Pulmonary Jesus Bonilla MD [address] [facility] [place] [id number] 06/11/2022 Laboratory Laboratory Processing [facility], [facility] Mobile Home Draw [address] [place] [address] 06/12/2022 [facility] [address] [place] [address] 06/22/2022 Telemedicine Psychiatry Hugo Alcantara MD [address] [place] [address] 09/02/2022 Office Visit Otolaryngology Jazmine Whitehead PA-C 132 [facility] [place] [address] Scheduled Orders Name Type Priority Associated Diagnoses [...] exists LUNG CANCER SCREENING - USE SMARTSET 17705 Completed 03/16/2022 GARDASIL-HPV IMMUNIZATION SERIES Aged Out [...] on File Type Date Recorded Patient Manager Labor Delivery Expl 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 Advanced Directive 11/02/2011 12:00 AM Care Teams Extruding Department Supervisor Relationship Specialty Start Date End Date Roger Alexandra MD [address] [place] [address] [place] [address] PCP - General Family Medicine 12/29/19 documented as of this encounter
--- OUTSIDE RECORDS SUMMARY | 2023-07-25 04:37 | External Medical Summary | Summary of Care ---
Author Name Unknown Organization [facility] [address] Care Team Providers Care Inspector Wire Products Name Role Phone Roger Alexandra MD Primary Care Provider [phone] [phone] Reason for Visit * Reason Onset Date Comments Appointment 05/14/2022 needs 6MW and pu lm visit Encounter Details Date Type Department Care Team Description 05/14/2022 Telephone Pulmonary Medicine, [facility] 132 [facility] [place] [address] Alisha Carrero CRNP 132 [facility] [place] [address] Appointment (needs 6MW and pulm visit) Allergies Active Allergy Reactions Severity Noted Date Comments Aspirin Unknown 12/12/2007 von Willebrand's disease Salicylates 03/01/2000 von Willebrand's disease documented as of this encounter (statuses as of 05/14/2022) Medications Medication Sig Dispensed Refills Start Date End Date Status OXYGEN 4 L during the day as needed and at bedtime 0 02/14/2015 Active Disposable Brief X-LargeIndications:O veractive bladder Attends X-Large Super Absorb Underwear 32 Each 2 03/18/2021 Active Vitamin D (Cholecalciferol) 25 MCG (1000 UT) Oral Capsule Take 1 Cap by mouth daily. 30 Cap 5 05/05/2021 Active Nystatin 143713 UNIT/GM External Powder (Nyamyc) apply to affected area twice a day 15 g 1 11/04/2021 Active ProAir HFA 108 (90 Base) MCG/ACT [...] 2017 classification ([facility]) Inhale by mouth 1 Puff [...] before bedtime. 120 Tablet 1 05/11/2022 Active Hospital, Clinic, or Other Facility Administered [...] as of this encounter (statuses as of 05/14/2022) Active Problems Problem Noted Date History of [...] as of this encounter (statuses as of 05/14/2022) Resolved Problems Problem Noted Date Resolved Date [...] as of this encounter (statuses as of 05/14/2022) Immunizations Name Administration Dates Next Due H1N1 [...] - 05/14/2022 10:39 AM EDT Kathy from [facility] called to let us know pt [...] Encounters Date Type Specialty Care Team Description 05/15/2022 Anticoagulation Pharmacy Telepharmacy, [facility] 58 60 [facility] [place] [address] 05/27/2022 PulmDiagnostic Pulmonary Function [place], Pft 132 [facility] [place] [address] 2022 Office Visit Pulmonary Jesus Bonilla MD [address] [place] [id number] 06/22/2022 Telemedicine Psychiatry [facility]ara MD [address] [facility] [address] 09/02/2022 Office Visit Otolaryngology Jazmine Whitehead PA-C 132 [facility] [place] [address] Scheduled Orders Name Type Priority Associated Diagnoses [...] (2 - Td or Tdap) 06/27/2018 06/27/2008 LIPID SCREEN EVERY 5 YRS-WOMEN AGE 45-75 09/25/2020 09/25/2015, 02/14/2015, 05/01/2011, Additional history exists Depression, Most Recent Score >= 10 (will fire each visit until score < 10) 04/24/2021 04/23/2021 *ADVANCE DIRECTIVE NOT ON FILE 02/16/2022 O2 ASSESSMENT COMPLETED IN PAST YEAR FOR COPD 03/24/2023 03/24/2022 DIABETES SCREEN EVERY 3 YRS-AGE 45 AND ABOVE 01/15/2025 01/15/2022, 01/08/2022, 01/03/2022, Additional history exists COLONOSCOPY-EVERY 5 YRS AGES 18-100 11/12/2025 11/12/2020, 05/22/2013, 08/21/2011, Additional history exists Influenza Vaccine (FLU shot) Completed , 11/11/2021, 09/15/2020, Additional history exists LUNG CANCER SCREENING - USE SMARTSET 65533 Completed 03/16/2022 GARDASIL-HPV IMMUNIZATION SERIES Aged Out [...] Documents on File Type Date Recorded Patient Tricot Knitter Expl 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 Directive 11/02/2011 12:00 AM Care Teams Inspector Wire Products Relationship Specialty Start Date End Date Roger Alexandra MD [address] [place] [address] PCP - General Family Medicine 12/29/19 documented as of this encounter
--- OUTSIDE RECORDS SUMMARY | 2023-07-25 04:37 | External Medical Summary | Summary of Care ---
Author Name Unknown Organization [place] [address] Care Team Providers Care Business Manager Name Role Phone Roger Alexandra MD Primary Care Provider [phone] [phone] Reason for Visit * Reason Onset Date Comments Medication Refill 05/26/2022 Encounter Details Date Type Department Care Team Description 05/26/[address] [facility] 132 [facility] [place] [address] Roger Alexandra MD 132 [facility] [place] [address] Chronic bilateral low back pain without sciatica Allergies Active Allergy Reactions Severity Noted Date Comments Aspirin Unknown 12/12/2007 von Willebrand's disease Salicylates 03/01/2000 von Willebrand's disease documented as of this encounter (statuses as of 05/26/2022) Medications Medication Sig Dispensed Refills Start Date [...] bedtime. 120 Tablet 1 05/11/2022 Active Nystatin 917403 UNIT/GM External Powder (Nyamyc) apply to affected area twice a day 15 g 1 05/19/2022 Active Hospital, Clinic, or Other Facility Administered [...] as of this encounter (statuses as of 05/26/2022) Active Problems Problem Noted Date History of [...] as of this encounter (statuses as of 05/26/2022) Resolved Problems Problem Noted Date Resolved Date [...] as of this encounter (statuses as of 05/26/2022) Immunizations Name Administration Dates Next Due H1N1 [...] Miscellaneous Notes * Telephone Encounter - DANIEL Brar - 05/26/2022 9:23 AM EDT Pt calling to request a refill for Tramodol Advised too soon to put request in. 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 [employer] [facility] Telepharmacy 05/26/2022,9:25 AM documented in this encounter Plan of Treatment Upcoming Encounters Date Type Specialty Care Team Description 2022 Office Visit Pulmonary [facility] [id number] 06/11/2022 Laboratory Laboratory [facility] Mobile Home Draw [address] [place] [address] 06/12/2022 [facility] [address] [place] [address] 06/22/2022 Telemedicine Psychiatry Hugo Alcantara MD [address] [place], [place] [address] 09/02/2022 Office Visit Otolaryngology Jazmine Whitehead PA-C 132 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
--- OUTSIDE RECORDS SUMMARY | 2023-07-25 04:37 | External Medical Summary | Summary of Care ---
Author Name Unknown Organization [place] [address] Care Team Providers Care Master Cosmetologist Name Role Phone Roger Alexandra MD Primary Care Provider [phone] Reason for Visit * Reason Comments FYI Encounter Details Date Type Department Care Team Description 05/14/2022 Telephone Pulmonary Medicine, [facility] 132 [facility] [place] [address] Alisha Carrero CRNP 132 [facility] [place] [address] FYI Allergies Active Allergy Reactions Severity Noted [...] bedtime. 120 Tablet 1 05/11/2022 Active Nystatin 116691 UNIT/GM External Powder (Nyamyc) apply to affected [...] room air SPO2 DOCUMENTED AT 05/28/22 APPOINTMENT. [phone]. Talked to Adrian [phone]. He suggested calling Kathy. Call [facility]. [...] - 05/14/2022 10:39 AM EDT Kathy from [facility] called to let us know pt needs [...] Visit Pulmonary Jesus Bonilla MD [address] [facility] [place] [address] 06/11/2022 Laboratory Laboratory Processing [facility] Mobile Home Draw [address] [place] [address] 06/12/2022 [facility] [address] [place] [address] 06/22/2022 Telemedicine Psychiatry Hugo Alcantara MD [address] [place] [address] 09/02/2022 Office Visit Otolaryngology Jazmine Whitehead PA-C 132 [facility] [place] [address] Scheduled Orders Name Type Priority Associated Diagnoses [...] exists LUNG CANCER SCREENING - USE SMARTSET 22769 Completed 03/16/2022 GARDASIL-HPV IMMUNIZATION SERIES Aged Out [...] Documents on File Type Date Recorded Patient Minute Clerk Expl 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 Advanced Directive 11/02/2011 12:00 AM Care Teams Master Cosmetologist Relationship Specialty Start Date End Date Roger Alexandra MD 132 [place] [address] PCP - General Family Medicine 12/29/19 documented as of this encounter
--- OUTSIDE RECORDS SUMMARY | 2023-07-25 04:37 | External Medical Summary | Summary of Care ---
Author Name Unknown Organization [place] [address] Care Team Providers Care Annealer Name Role Phone Roger Alexandra MD Primary Care Provider [phone] [phone] Reason for Visit * Reason Comments FYI Encounter Details Date Type Department Care Team Description 05/14/2022 Telephone Pulmonary Medicine, [facility] 132 [facility] [place] [address] Alisha Carrero CRNP 132 [facility] [place] [address] FYI Allergies Active Allergy Reactions Severity Noted [...] bedtime. 120 Tablet 1 05/11/2022 Active Nystatin 886186 UNIT/GM External Powder (Nyamyc) apply to affected [...] room air SPO2 DOCUMENTED AT 05/28/22 APPOINTMENT. [phone]. Talked to Adrian [phone]. He suggested calling Kathy. Call [facility]. [...] - 05/14/2022 10:39 AM EDT Kathy from [facility] called to let us know pt needs [...] Bonilla MD [address] [facility] [place] [id number] 06/11/[address] [facility] Mobile Home Draw [address] [place] [address] 06/12/2022 [facility] [address] [place] [address] 06/22/2022 Telemedicine Psychiatry Hugo Alcantara MD [address] [place] [address] 09/02/2022 Office Visit Otolaryngology Jazmine Whitehead PA-C 132 [facility] [place] [address] Scheduled Orders Name Type Priority Associated Diagnoses [...] exists LUNG CANCER SCREENING - USE SMARTSET 72213 Completed 03/16/2022 GARDASIL-HPV IMMUNIZATION SERIES Aged Out [...] on File Type Date Recorded 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
--- OUTSIDE RECORDS SUMMARY | 2023-07-25 04:37 | External Medical Summary | Summary of Care ---
Author Name Unknown Organization [place] [address] Care Team Providers Care Promotions Executive Name Role Phone Roger Alexandra MD Primary Care Provider [phone] [phone] Reason for Visit * Reason Onset Date Comments Appointment 05/14/2022 needs 6MW and pu lm visit Encounter Details Date Type Department Care Team Description 05/14/2022 Telephone Pulmonary Medicine, [facility] 132 [facility] [place] [address] Alisha Carrero CRNP 132 [facility] [place] [address] Appointment (needs 6MW and pulm visit) Allergies [...] bedtime. 120 Tablet 1 05/11/2022 Active Nystatin 529788 UNIT/GM External Powder (Nyamyc) apply to affected [...] room air SPO2 DOCUMENTED AT 05/28/22 APPOINTMENT. [phone]. Talked to Adrian [phone]. He suggested calling Kathy. Call [facility]. [...] - 05/14/2022 10:39 AM EDT Kathy from [facility] called to let us know pt needs [...] [address] [facility] [place] [address] 06/11/2022 Laboratory Laboratory Processing [facility] Mobile Home Draw [address] [place] [address] 06/12/2022 [facility] [address] [place] [address] 06/22/2022 Telemedicine Psychiatry Hugo Alcantara MD [address] [place], [place] [address] 09/02/2022 Office Visit Otolaryngology Jazmine Whitehead PA-C 132 [facility] [place] [address] Scheduled Orders Name Type Priority Associated Diagnoses [...] exists LUNG CANCER SCREENING - USE SMARTSET 47245 Completed 03/16/2022 GARDASIL-HPV IMMUNIZATION SERIES Aged Out [...] Documents on File Type Date Recorded Patient Senior Market Intelligence Consultant Expl 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 Advanced Directive 11/02/2011 12:00 AM Care Teams Promotions Executive Relationship Specialty Start Date End Date Roger Alexandra MD [address] [place] [address] [place] [address] PCP - General Family Medicine 12/29/19 documented as of this encounter
--- OUTSIDE RECORDS SUMMARY | 2023-07-25 04:37 | External Medical Summary | Summary of Care ---
Author Name Unknown Organization [place] [address] Care Team Providers Care National Coverage Specialist Name Role Phone Jeevan Mclean MD Primary Care Provider [phone] Reason for Visit * Reason Onset Date Comments Medication Refill 05/19/2022 Encounter Details Date Type Department Care Team Description 05/19/2022 Refill Family Practice [facility] [address] [place] [address] Jeevan Mclean MD 132 [facility] [place] [address] Allergies Active Allergy Reactions Severity Noted Date Comments Aspirin Unknown 12/12/2007 von Willebrand's disease Salicylates 03/01/2000 von Willebrand's disease documented as of this encounter (statuses as of 05/19/2022) Medications Medication Sig Dispensed Refills Start Date [...] bedtime. 120 Tablet 1 05/11/2022 Active Nystatin 889321 UNIT/GM External Powder (Nyamyc) apply to affected area twice a day 15 g 1 05/19/2022 Active Nystatin 462483 UNIT/GM External Powder (Nyamyc) apply to affected [...] as of this encounter (statuses as of 05/19/2022) Active Problems Problem Noted Date History of [...] as of this encounter (statuses as of 05/19/2022) Resolved Problems Problem Noted Date Resolved Date [...] as of this encounter (statuses as of 05/19/2022) Immunizations Name Administration Dates Next Due H1N1 [...] Telephone Encounter - Jeevan Mclean MD - 05/19/2022 3:34 PM EDT Signed Prescriptions: Disp Refills Nystatin 184027 UNIT/GM External Powder (N*15 g 1 Sig: apply to affected area twice a day Authorizing Provider: JEEVAN MCLEAN * Telephone Encounter - Mary Campbell, vacuum frame operator - 05/19/2022 3:32 PM EDT Did you pend patient's preferred pharmacy and medication before forwarding?yes Pharmacy: [id number] Pending Prescriptions: Disp Refills Nystatin 354351 UNIT/GM External Powder (*15 g 1 Sig: apply to affected area twice a day Last Visit: 01/23/2022 (in office), 03/14/2021 (telemedicine) Next Visit: Visit date not found If no future appointments scheduled, and last appointment is greater than a year ago, please schedule patient for a follow-up appointment Last date the medication was ordered: Is this request for a controlled substance?No [...] Encounters Date Type Specialty Care Team Description 05/27/2022 PulmDiagnostic Pulmonary Function [place], [facility] [address] [place] [address] 2022 Office Visit Pulmonary Jesus Bonilla MD [address] [facility] [place] [address] 06/11/2022 Laboratory Laboratory Processing [facility], [facility] Mobile Home Draw [address] [place] [address] 06/22/2022 Telemedicine Psychiatry Hugo Alcantara MD [address] [place] [address] 09/02/2022 Office Visit Otolaryngology Jazmine Whitehead PA-C 132 [place] [address] Scheduled Procedures Name Priority Associated Diagnoses Date/Ti [...] exists LUNG CANCER SCREENING - USE SMARTSET [address]25[address] Completed 03/16/2022 GARDASIL-HPV IMMUNIZATION SERIES Aged Out No longer eligible based on patient's age to complete this topic MENINGOCOCCAL (MENACTRA/MENVEO) Aged Out No longer eligible based on patient's age to complete this topic documented as of this encounter Implants Not on filedocumented as of this encounter Advance Directives Documents on File Type Date Recorded Patient Sales And Operations Trainee Expl 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 Advanced Directive 11/02/2011 12:00 AM Care Teams National Coverage Specialist Relationship Specialty Start Date End Date Jeevan Mclean MD 132 [facility] [place] [address] PCP - General Family Medicine 12/29/19 documented as of this encounter
--- OUTSIDE RECORDS SUMMARY | 2023-07-25 04:37 | External Medical Summary | Summary of Care ---
Author Name Unknown Organization [facility] Address [facility] [place] [address] Care Team Providers Care Net Developer Contract Name Role Phone Roger Alexandra MD Primary Care Provider [phone] [phone] Reason for Visit * Reason Comments Dosage Adjustment Via Phone (anticoag Cl inic) Encounter Details Date Type Department Care Team Description 05/15/2022 Anticoagulation Pharmacy Call Center [address] [facility] [place] [address] Telepharmacy, [facility] 58 60 [place] [address] Anticoagulation management encounter* Allergies Active Allergy Reactions Severity Noted Date Comments Aspirin Unknown 12/12/2007 von Willebrand's disease Salicylates 03/01/2000 von Willebrand's disease documented as of this encounter (statuses as of 05/15/2022) Medications Medication Sig Dispensed Refills Start Date End Date Status OXYGEN 4 L during the day as needed and at bedtime 0 02/14/2015 Active Disposable Brief X-LargeIndications:O veractive bladder Attends X-Large Super Absorb Underwear 32 Each 2 03/18/2021 Active Vitamin D (Cholecalciferol) 25 MCG (1000 UT) Oral Capsule Take 1 Cap by mouth daily. 30 Cap 5 05/05/2021 Active Nystatin 492979 UNIT/GM External Powder (Nyamyc) apply to affected [...] as of this encounter (statuses as of 05/15/2022) Active Problems Problem Noted Date History of [...] as of this encounter (statuses as of 05/15/2022) Resolved Problems Problem Noted Date Resolved Date [...] as of this encounter (statuses as of 05/15/2022) Immunizations Name Administration Dates Next Due H1N1 [...] encounter Progress Notes * DANIEL Morley - 05/15/2022 8:56 AM EDT Contacts Type Contact Phone 05/15/2022 08:53 AM EDT Phone (Outgoing) Kimberly Kendall (Self) [phone] (M) Left Message PT/INR results, Coumadin dose instructions, and next PT/INR date communicated as noted by Pharmacist: Yes DANIEL Morley 05/15/2022, 8:56 AM * Kim Mercado RPh - 05/15/2022 8:17 AM EDT Coumadin Clinic (region specific) Current Warfarin Dose As of 05/15/2022 Warfarin maintenance plan: 5 mg (5 mg x 1) every day INR Result As of 05/15/2022 INR goal: 2.0-3.0 INR used for dosin.89 (05/14/2022) Warfarin Plan As of 05/15/2022 Full warfarin instructions: 5 mg every day No change documented: Kim Mercado RPh Next INR check: 06/11/2022 Repeat PT/INR in 4 week(s) Weekly dose: not changed Additional Dosing Information: Description [facility] Also sent MyG after trying to call [employer] to contact patient with dose instructions as noted. Kim Mercado RPh 05/15/2022, 8:18 AM documented in this encounter Plan of Treatment Upcoming Encounters Date Type Specialty Care Team Description 05/27/2022 PulmDiagnostic Pulmonary Function [place], [facility] [address] [place] [address] 2022 Office Visit Pulmonary Jesus Bonilla MD [address] [place] [address] 06/11/[address] [facility], [facility] Mobile Home Draw [address] [place] [address] 06/22/2022 Telemedicine Psychiatry Hugo Alcantara MD [address] [place] [address] 09/02/2022 Office Visit Otolaryngology Jazmine Whitehead PA-C 132 [facility] [place] [address] Scheduled Procedures Name Priority Associated Diagnoses Date/Ti [...] exists LUNG CANCER SCREENING - USE SMARTSET [address]3398 Completed 03/16/2022 GARDASIL-HPV IMMUNIZATION SERIES Aged Out [...] Documents on File Type Date Recorded Patient Ccie Expl 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 Advanced Directive 11/02/2011 12:00 AM Care Teams Net Developer Contract Relationship Specialty Start Date End Date Roger Alexandra MD [facility] [place] [id number] PCP - General Family Medicine 12/29/19 documented as of this encounter
--- OUTSIDE RECORDS SUMMARY | 2023-07-25 04:38 | External Medical Summary | Summary of Care ---
Author Name Unknown Organization [place] [address] Care Team Providers Care Sawmill Relief Worker Name Role Phone Roger Alexandra MD Primary Care Provider [phone] Reason for Visit * Reason Onset Date Comments Encounter Created in Error 05/12/2022 Encounter Details Date Type Department Care Team Description 05/12/2022 Telephone Pulmonary Medicine, [facility] [address] [place] [address] Jesus Bonilla MD [address] [facility] [place] [id number] Encounter Created in Error Allergies Active Allergy Reactions Severity Noted Date Comments Aspirin Unknown 12/12/2007 von Willebrand's disease Salicylates 03/01/2000 von Willebrand's disease documented as of this encounter (statuses as of 05/12/2022) Medications Medication Sig Dispensed Refills Start Date End Date Status OXYGEN 4 L during the day as needed and at bedtime 0 02/14/2015 Active Disposable Brief X-LargeIndications:O veractive bladder Attends X-Large Super Absorb Underwear 32 Each 2 03/18/2021 Active Vitamin D (Cholecalciferol) 25 MCG (1000 UT) Oral Capsule Take 1 Cap by mouth daily. 30 Cap 5 05/05/2021 Active Nystatin 270783 UNIT/GM External Powder (Nyamyc) apply to affected [...] 2017 classification ([facility]) Inhale by mouth 1 Puff [...] as of this encounter (statuses as of 05/12/2022) Active Problems Problem Noted Date History of [...] as of this encounter (statuses as of 05/12/2022) Resolved Problems Problem Noted Date Resolved Date [...] as of this encounter (statuses as of 05/12/2022) Immunizations Name Administration Dates Next Due H1N1 [...] Telephone Encounter - Airam Ramey LPN - 05/12/2022 2:33 PM EDT Error documented in this encounter Plan of Treatment Upcoming Encounters Date Type Specialty Care Team Description 05/14/2022 Laboratory Laboratory Processing [facility], [facility] Mobile Home Draw [address] [place] [address] 05/15/2022 [facility] [address] [place] [address] 2022 Office Visit Pulmonary Jesus Bonilla MD [address] [place] [address] 06/22/2022 Telemedicine Psychiatry Hugo Alcantara MD [address] [place] [address] 09/02/2022 Office Visit Otolaryngology Jazmine Whitehead PA-Roz [address] [facility] [address] Scheduled Procedures Name Priority Associated Diagnoses Date/Ti [...] exists LUNG CANCER SCREENING - USE SMARTSET 05944 Completed 03/16/2022 GARDASIL-HPV IMMUNIZATION SERIES Aged Out No longer eligible based on patient's age to complete this topic MENINGOCOCCAL (MENACTRA/MENVEO) Aged Out No longer eligible based on patient's age to complete this topic documented as of this encounter Implants Not on filedocumented as of this encounter Advance Directives Documents on File Type Date Recorded Patient Border Machine Operator Expl 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 Advanced Directive 11/02/2011 12:00 AM Care Teams Sawmill Relief Worker Relationship Specialty Start Date End Date Roger Alexandra MD [address] [place] [address] PCP - General Family Medicine 12/29/19 documented as of this encounter
--- OUTSIDE RECORDS SUMMARY | 2023-07-25 04:38 | External Medical Summary | Summary of Care ---
Author Name Unknown Organization [place] [address] Care Team Providers Care Inspector Penetrant Name Role Phone Roger Alexandra MD Primary Care Provider [phone] Encounter Details Date Type Department Care Team Description 05/11/2022 Telemedicine Psychiatry, [address] [address] Hugo Alcantara MD [address] [place], [place] [id number] SIMA (generalized anxiety disorder)* Allergies Active Allergy Reactions Severity Noted Date Comments Aspirin Unknown 12/12/2007 von Willebrand's disease Salicylates 03/01/2000 von Willebrand's disease documented as of this encounter (statuses as of 05/11/2022) Medications Medication Sig Dispensed Refills Start Date End Date Status OXYGEN 4 L during the day as needed and at bedtime 0 5 Active Disposable Brief X-LargeIndications :Overactive bladder Attends X-Large Super Absorb Underwear 32 Each 2 1 Active Vitamin D (Cholecalciferol) 25 MCG (1000 UT) Oral Capsule Take 1 Cap by mouth daily. 30 Cap 5 1 Active Nystatin 025708 UNIT/GM External Powder ([facility]) apply to affected area twice a day 15 g 1 1 Active ProAir HFA 108 (90 Base) [...] )Indications:COPD, group D, by GOLD 2017 classification (HCC) [...] 23, 2022. 90 Tablet 1 2 Active traMADol HCl 100 MG Oral TabletIndications: Chronic bilateral low back pain without sciatica Take by mouth 100 mg every 8 hours as needed for Pain, Moderate or Pain, Severe. 90 Tablet 0 2 Active DULoxetine HCl 30 MG Oral [...] before bedtime. 120 Tablet 1 2 Active Mirtazapine 15 MG Oral Tablet (Remeron) Take by mouth 1 Tablet before bedtime. 30 Tablet 2 2 05/11/20 22 Discontinued busPIRone HCl 10 MG Oral Tablet (Buspar) Take by mouth 2 Tablets in the morning AND 2 Tablets before bedtime. 120 Tablet 1 2 05/11/20 22 Discontinued(Ref ill) Hospital, Clinic, or Other [...] as of this encounter (statuses as of 05/11/2022) Active Problems Problem Noted Date History of [...] as of this encounter (statuses as of 05/11/2022) Resolved Problems Problem Noted Date Resolved Date [...] as of this encounter (statuses as of 05/11/2022) Immunizations Name Administration Dates Next Due H1N1 [...] Progress Notes * Hugo Alcantara MD - 05/11/2022 3:31 PM EDT After connecting through [employer], patient was verified with two unique identifiers. Patient (or authorized legal apprenticeship training representative) was then informed that this was a Telemedicine visit and being conducted confidentially over secure lines. Methods to assure confidentiality were taken. Patient acknowledged consent and understanding of privacy and security of the Telemedicine visit. The patient agreed to participate. PSYCHOTHERAPY & MEDICATION MANAGEMENT RETURN VISIT NOTE Psychiatry, [address] [facility] [address] 08/18/2021 Kimberly Kendall CHIEF COMPLAINT: medication management INTERVAL HISTORY: she states she's "not too good". Reports that she has a CARVALHO, her nerves are "bad today" and feels agitated. Has been having headaches "off and on" over the last 2 days. She states she "can't concentrate over anything". She states sleep has been "terrible". Shares an example of waking up crying the other night dreaming of her mother. Continues to feel "very depressed". Inquires if she has dementia (previously discussed and neuropsych referral placed) OBJECTIVE DATA: COLUMBIA-SUICIDE SEVERITY RATING SCALE Have [...] Cap by mouth daily. 30 Cap 5 Nystatin 209280 UNIT/GM External Powder (Nyamyc) apply to affected area twice a day 15 g 1 ProAir HFA 108 (90 Base) MCG/ACT Inhalation [...] Ellipta 100-62.5-25 MCG/INH Aerosol Powder Breath Activated (esuregntmca-fspwnqxnztmi-ekxouxyayb) Inhale by mouth 1 Puff in the [...] for Muscle spasms. 90 Tablet 3 Mirtazapine 15 MG Oral Tablet (Remeron) Take by mouth 1 Tablet before bedtime. 30 Tablet 2 busPIRone HCl 10 MG Oral Tablet (Buspar) Take by mouth 2 Tablets in the morning AND 2 Tablets before bedtime. 120 Tablet 1 LORazepam 0.5 MG Oral Tablet [...] Pain, Moderateor Pain, Severe. 90 Tablet 0 Current Facility-Administered Medications Medication [...] Thought Process: goal directed Abstract Reasoning: not tested Thought Content: denies suicidal ideations, homicidal ideations, auditory hallucinations, visual hallucinations, delusions, impulsivity to act out or preoccupation with violence Orientation: Alert; oriented to person, place, month, year, situation Recent and remote memory as evidenced by recall of recent circumstances and remote life events: intact Language as evidenced by ability to repeat phrase and name object: intact Fund of knowledge as evidenced by vocabulary and current/historical events: intact Attention span/concentration as evidenced by: following conversation - intact Insight: fair Judgment: fair FORMULATION: Kimberly Kendall is [id number] old female with presenting symptoms ofdepression, anxiety, [...] Bereavement R/o major neurocognitive d/o TREATMENT PLAN: - I have reviewed the patients controlled substance dispensing history in the Prescription Drug Monitoring Program in compliance with the [facility] regulations before prescribing a controlled substance. -- increase Remeron to 30mg nightly for sleep/anxiety/depression -- cont Ativan 0.5mg TID -- cont Buspar 20mg BID -- start Cymbalta 30mg daily (previously took this w/o issue) -- recommend therapy; referral previously placed -- neuropsychology referral for neurocognitive d/o evaluation RTC: 1 month - Crisis planning-- Kimberly Kendall has been [...] Care Team Description 05/14/2022 Laboratory Laboratory Processing [facility] Mobile Home Draw [address] [place] [address] 05/15/2022 [facility] [place] [place] [address] [facility] [place] [address] 2022 Office Visit Pulmonary Jesus Bonilla MD [address] [facility] [place] [phone] 09/02/2022 Office Visit Otolaryngology Jazmine Whitehead PA-Roz 132 [facility] [place] [address] Scheduled Procedures Name Priority Associated Diagnoses Date/Ti [...] exists LUNG CANCER SCREENING - USE SMARTSET 10703 Completed 03/16/2022 GARDASIL-HPV IMMUNIZATION SERIES Aged Out [...] Documents on File Type Date Recorded Patient Residence Director Expl 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 Directive 11/02/2011 12:00 AM Care Teams Inspector Penetrant Relationship Specialty Start Date End Date Roger Alexandra MD [address] [place] [address] PCP - General Family Medicine 12/29/19 documented as of this encounter
--- OUTSIDE RECORDS SUMMARY | 2023-07-25 04:38 | External Medical Summary | Summary of Care ---
Author Name Unknown Organization [facility] Address [place] [address] Care Team Providers Care Manager Review Name Role Phone Roger Alexandra MD Primary Care Provider [phone] Reason for Visit * Reason Comments Pulmonary Function Test PFT Encounter Details Date Type Department Care Team Description 05/07/2022 PulmDiagnostic Pulmonary Function Lab, [facility] [address] [place] [address] [place], Pft [address] [place] [address] COPD, group D, by GOLD 2017 classification ([facility])* Allergies Active Allergy Reactions Severity Noted Date Comments Aspirin Unknown 12/12/2007 von Willebrand's disease Salicylates 03/01/2000 von Willebrand's disease documented as of this encounter (statuses as of 05/07/2022) Medications Medication Sig Dispensed Refills Start Date End Date Status OXYGEN 4 L during the day as needed and at bedtime 0 02/14/2015 Active Disposable Brief X-LargeIndications:O veractive bladder Attends X-Large Super Absorb Underwear 32 Each 2 03/18/2021 Active Vitamin D (Cholecalciferol) 25 MCG (1000 UT) Oral Capsule Take 1 Cap by mouth daily. 30 Cap 5 05/05/2021 Active Nystatin 017847 UNIT/GM External Powder (Nyamyc) apply to affected [...] spasms. 90 Tablet 3 02/16/2022 Active Mirtazapine 15 MG Oral Tablet (Remeron) Take by mouth 1 Tablet before bedtime. 30 Tablet 2 02/26/2022 Active busPIRone HCl 10 MG Oral Tablet (Buspar) Take by mouth 2 Tablets in the morning AND 2 Tablets before bedtime. 120 Tablet 1 03/30/2022 Active LORazepam 0.5 MG Oral Tablet (Ativan) [...] Pain, Severe. 90 Tablet 0 05/05/2022 Active Hospital, Clinic, or Other Facility Administered [...] as of this encounter (statuses as of 05/07/2022) Active Problems Problem Noted Date History of [...] as of this encounter (statuses as of 05/07/2022) Resolved Problems Problem Noted Date Resolved Date [...] as of this encounter (statuses as of 05/07/2022) Immunizations Name Administration Dates Next Due H1N1 [...] Taken Comments Blood Pressure - - Pulse - - Temperature 36.2 C (97.1 F) 05/07/2022 2:48 PM ED T Respiratory Rate - - Oxygen Saturation - - Inhaled Oxygen Concentration - - Weight 129 kg (284 lb 6.3 oz) 05/07/2022 2:48 PM EDT Height 155 cm (5' 1.02") 05/07/2022 2:48 PM EDT Body Mass Index 53.69 05/07/2022 2:48 PM EDT documented in this encounter Nursing Notes * Leighton Malcolm RRT - 05/07/2022 3:07 PM EDT Kimberly Kendall was identified by name, Date of : (1960), and . Vitals were obtained for testing. Body mass index is 53.69 kg/m. Pt has a 1.5 ppd for 32 years smoking history and quit 3 years ago. Pt wear 4 liters of oxygen continuously. 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 Spirometry and DLCO performed before and after a slow volume nebulizer treatment of 0.5ml of albuterol in 3 ml of NSS. The proper method of use, as well as anticipated side effects, of this svn are discussed and demonstrated to the patient. Patient demonstrates adequate delivery. Administrations This Visit Albuterol Sulfate (Proventil) (5 MG/ML) 0.5% *conc* inhalation solution 2.5 mg Admin Date 05/07/2022 Action Given Dose 2.5 mg Route Nebulizer Administered By Leighton Malcolm RRT documented in this encounter Plan of Treatment Upcoming Encounters Date Type Specialty Care Team Description 05/11/2022 Telemedicine Psychiatry Hugo Alcantara MD [address] [place] [address] 05/14/2022 Laboratory Laboratory Processing [facility], [facility] Mobile Home Draw [address] [place] [address] 05/15/2022 [facility] [address] [facility] [place] [address] 2022 Office Visit Pulmonary Jesus Bonilla MD [address] [place] [address] 09/02/2022 Office Visit Otolaryngology Jazmine Whitehead PA-C [address] [place] [address] Pending Results Name Type Priority Associated Diagnoses Date /Time DIFFUSION CAPACITY (DLCO) Procedures Routine COPD, group D, by GOLD 2017 classification ([facility]) 05/07/2022 2:41 PM EDT SPIROMETRY B/A BRONCHODILATOR Procedures Routine COPD, group D, by GOLD 2017 classification ([facility]) 05/07/2022 2:41 PM EDT Scheduled Procedures Name Priority Associated Diagnoses Date/Ti me COLONOSCOPY FLEXIBLE PROXIMAL DIAGNOSTIC Recall History of colon polyps Health Maintenance Due Date Last Done Comments COVID-19 Vaccine (#1) 1965 Pneumococcal Vaccine: Pediatrics (0 to 5 Years) [...] exists LUNG CANCER SCREENING - USE SMARTSET 31258 Completed 03/16/2022 GARDASIL-HPV IMMUNIZATION SERIES Aged Out No longer eligible based on patient's age to complete this topic MENINGOCOCCAL (MENACTRA/MENVEO) Aged Out No longer eligible based on patient's age to complete this topic documented as of this encounter Implants Not on filedocumented as of this encounter Procedures Procedure Name Priority Date/Time Associated Diagnosis Comments DIFFUSION CAPACITY (DLCO) Routine 05/07/2022 2:41 PM EDT COPD, group D, by GOLD 2017 classification ([facility]) SPIROMETRY B/A BRONCHODILATOR Routine 05/07/2022 2:41 PM EDT COPD, group D, by GOLD 2017 classification ([facility]) documented in this encounter Visit Diagnoses Diagnosis COPD, group D, by GOLD 2017 classification ([facility])- Primary documented in this encounter Administered Medications Active Administered Medications - up to 3 most recent administrations Medication Order MAR Action Action Date Dose Rate Site Albuterol Sulfate (Proventil) (5 MG/ML) 0.5% *conc* inhalation solution 2.5 mg 2.5 mg, Nebulizer, PRN pft once, Starting on Wed03/10/22 at 1541, Until Wed03/10/23 at 1540, For 365 days, Only one type of albuterol product should be administered (Nebulizer or Inhaler). Please select and document on the appropriate albuterol product order. *Dilute with 0.9% saline IF needed Given 05/07/2022 3:07 PM EDT 2.5 mg documented in this encounter Advance Directives Documents on File Type Date Recorded Patient Sales Service Assistant Expl 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 Directive 11/02/2011 12:00 AM Care Teams Manager Review Relationship Specialty Start Date End Date Roger Alexandra MD [address] [facility] [place] [address] PCP - General Family Medicine 12/29/19 documented as of this encounter
--- OUTSIDE RECORDS SUMMARY | 2023-07-25 04:38 | External Medical Summary | Summary of Care ---
Author Name Unknown Organization [place] [address] Care Team Providers Care Solar Technician Name Role Phone Roger Alexandra MD Primary Care Provider [phone] Reason for Referral * Evaluate & Treat - Unlimited Visits (Within 30 days (routine)) - Authorized Specialty Diagnoses / Procedures Referred By Contac t Referred To Contact HOME CARE / Home Care Diagnoses Decreased activities of daily living (ADL) Roger Alexandra MD [address] [place] [address] Referral ID Status Reason Start Date Expiration Date Visits Requested Visits Authorized Authorized Specialty Services Required 04/22/2022 999 [id number] Question Answer Referral Priority Within 30 days (routine) Comments Documentation of Xlmm-ye-Xnrs Encounter Addendum Patient Name: Kimberly Kendall I certify that this patient is under my care and that I, or a nurse practitioner or physician's staff assistant working with me, had a ieoe-as-avhf encounter that meets the physician qdhd-[id number] encounter requirements with this patient on: The encounter with the patient was in whole, or in part, for the following medical condition, which is the primary reason for home health care (List medical condition): ADL dysfunction I certify that, based on my findings, the following services are medically necessary home health services: Nursing To provide the following care/treatments: (All hospitalists not following the patient after discharge should complete this section): adl Primary Care Physician to follow home care plan of care after discharge: My clinical findings support the need for the above services because: Further, I certify that my clinical findings support that this patient is homebound (i.e. Absences from home require considerable and taxing effort and are for medical reasons or moravian services or infrequently or of short duration when for other reason) because: Physician Signature: Date of Signature: Physician Printed Name: MARCELLA Orellana'majo [place] Handle Bench Worker Reason for Visit * Reason Onset Date Comments Advice 04/15/2022 Encounter Details Date Type Department Care Team Description 04/15/2022 Telephone Family Practice [facility] [address] [place] [address] Roger Alexandra MD 132 [facility] [place] [address] Advice Allergies Active Allergy Reactions Severity Noted Date Comments Aspirin Unknown 12/12/2007 von Willebrand's disease Salicylates 03/01/2000 von Willebrand's disease documented as of this encounter (statuses as of 04/22/2022) Medications Medication Sig Dispensed Refills Start Date End Date Status OXYGEN 4 L during the day as needed and at bedtime 0 02/14/2015 Active Disposable Brief X-LargeIndications:O veractive bladder Attends X-Large Super Absorb Underwear 32 Each 2 03/18/2021 Active Vitamin D (Cholecalciferol) 25 MCG (1000 UT) Oral Capsule Take 1 Cap by mouth daily. 30 Cap 5 05/05/2021 Active Nystatin 478477 UNIT/GM External Powder (Nyamyc) apply to affected [...] ications:COPD, group D, by GOLD 2017 classification ([facility]) Inhale by mouth 1 Puff [...] Moderate or Pain, Severe. 90 Tablet 0 04/07/2022 Active Hospital, Clinic, or Other Facility Administered [...] as of this encounter (statuses as of 04/22/2022) Active Problems Problem Noted Date History of [...] as of this encounter (statuses as of 04/22/2022) Resolved Problems Problem Noted Date Resolved Date [...] as of this encounter (statuses as of 04/22/2022) Immunizations Name Administration Dates Next Due H1N1 [...] Miscellaneous Notes * Telephone Encounter - RUFINA Ordonez - 04/15/2022 2:30 PM EDT Pt calling in - said she received a call from [employer] electronic warfare officer and said after today her caregiver would not be able to come anymore because she ran out of services. Patient is very upset and was crying on the phone. She was given no notice that she wouldn't have a caregiver. She mention them telling her they need an authorization in order for caregiver to come back. documented in this encounter Plan of Treatment Upcoming Encounters Date Type Specialty Care Team Description 05/07/2022 PulmDiagnostic Pulmonary Function [place], Pft 132 [facility] [place] [address] 05/11/2022 Telemedicine Psychiatry Hugo Alcantara MD [address] [place] [address] 05/14/2022 Laboratory Laboratory Processing [facility] Mobile Home Draw [address] [place] [address] 05/15/2022 [facility] [address] [place] [address] 08/21/2022 Office Visit Pulmonary Jesus Bonilla MD [address] [facility] [place] [address] 09/02/2022 Office Visit Otolaryngology Jazmine Whitehead PA-C 132 [facility] [place] [address] Scheduled Procedures Name Priority Associated Diagnoses Date/Ti me COLONOSCOPY FLEXIBLE PROXIMAL DIAGNOSTIC Recall History of colon polyps Scheduled Referrals Name Type Priority Associated Diagnoses Orde r Schedule HOME HEALTH REFERRAL OP Referral Within 30 days (routine) Decreased activities of daily living (ADL) Ordered: 04/22/2022 Health Maintenance Due Date Last Done Comments [...] exists LUNG CANCER SCREENING - USE SMARTSET 82496 Completed 03/16/2022 GARDASIL-HPV IMMUNIZATION SERIES Aged Out No longer eligible based on patient's age to complete this topic MENINGOCOCCAL (MENACTRA/MENVEO) Aged Out No longer eligible based on patient's age to complete this topic documented as of this encounter Implants Not on filedocumented as of this encounter Visit Diagnoses Diagnosis Decreased activities of daily living (ADL)- Primary documented in this encounter Advance Directives Documents on File Type Date Recorded Patient Hr Business Partner Expl 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 Advanced Directive 11/02/2011 12:00 AM Care Teams Solar Technician Relationship Specialty Start Date End Date Roger Alexandra MD [address] [place] [address] [place] [address] PCP - General Family Medicine 12/29/19 documented as of this encounter
--- OUTSIDE RECORDS SUMMARY | 2023-07-25 04:38 | External Medical Summary | Summary of Care ---
Author Name Unknown Organization [facility] Address [place] [address] Care Team Providers Care Steward/Stewardess Tourist Class Name Role Phone Roger Alexandra MD Primary Care Provider [phone] [phone] Reason for Visit * Reason Comments Pulmonary Function Test PFT Encounter Details Date Type Department Care Team Description 05/07/2022 PulmDiagnostic Pulmonary Function Lab, [facility] [address] [place] [address] [place], Pft [address] [place] [address] COPD, group D, by GOLD 2017 classification ([facility])* Allergies Active Allergy Reactions Severity Noted Date [...] daily. 30 Cap 5 05/05/2021 Active Nystatin 811617 UNIT/GM External Powder (Nyamyc) apply to affected [...] by GOLD 2017 classification ([facility]) Inhale by mouth 1 Puff in the [...] Telemedicine Psychiatry Hugo Alcantara MD [address] [place] [address] 05/14/2022 Laboratory Laboratory Processing [facility], [facility] Mobile Home Draw [address] [place] [address] 05/15/2022 [facility] 58 60 [facility] [place] [address] 2022 Office Visit Pulmonary Jesus Bonilla MD [address] [place] [address] 09/02/2022 Office Visit Otolaryngology Jazmine Whitehead PA-C [address] [place] [address] Pending Results Name Type Priority Associated Diagnoses Date /Time DIFFUSION CAPACITY (DLCO) Procedures Routine COPD, group D, by GOLD 2017 classification ([facility]) 05/07/2022 2:41 PM EDT SPIROMETRY B/A BRONCHODILATOR Procedures Routine COPD, group D, by GOLD 2017 classification ([facility]) 05/07/2022 2:41 PM EDT Scheduled Procedures Name [...] exists LUNG CANCER SCREENING - USE SMARTSET 53212 Completed 03/16/2022 GARDASIL-HPV IMMUNIZATION SERIES Aged Out [...] by GOLD 2017 classification ([facility]) SPIROMETRY B/A BRONCHODILATOR Routine 05/07/2022 2:41 PM EDT COPD, group D, by GOLD 2017 classification ([facility]) documented in this encounter Visit Diagnoses Diagnosis COPD, group D, by GOLD 2017 classification ([facility])- Primary documented in this encounter Administered Medications [...] Documents on File Type Date Recorded Patient Animal Eviscerator Expl 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 Advanced Directive 11/02/2011 12:00 AM Care Teams Steward/Stewardess Tourist Class Relationship Specialty Start Date End Date Roger Alexandra MD 132 [facility] [place] [address] PCP - General Family Medicine 12/29/19 documented as of this encounter
--- OUTSIDE RECORDS SUMMARY | 2023-07-25 04:38 | External Medical Summary ---
Author Name Unknown Address Unknown Organization [facility] [address] [place] [address] Laboratory Report Ordering Provider Test Date Status SUMAN STANFORD 05/14/2022 09:54:00 Final Observation Date Value Abnormality Reference (Units ) Status PT 05/14/2022 09:54:00 30.1 Above high normal 11 .5-14.6 (seconds) Final INR 05/14/2022 09:54:00 2.89 Above high normal 0. 84-1.14 Final Performing Location [facility]ATORY [facility] [address] [place] [address]
--- OUTSIDE RECORDS SUMMARY | 2023-07-25 04:38 | External Medical Summary | Summary of Care ---
Author Name Unknown Organization [facility] Address [place] [address] Care Team Providers Care Stone Polisher Name Role Phone Roger Alexandra MD Primary Care Provider [phone] [phone] Reason for Visit * Reason Comments Pulmonary Function Test PFT Encounter Details Date Type Department Care Team Description 05/07/2022 PulmDiagnostic Pulmonary Function Lab, [facility] [address] [address] [place], Pft [address] [place] [address] COPD, group D, by GOLD 2017 classification ([facility])* Allergies Active Allergy Reactions Severity Noted Date [...] daily. 30 Cap 5 05/05/2021 Active Nystatin 291283 UNIT/GM External Powder (Nyamyc) apply to affected [...] Telemedicine Psychiatry Hugo Alcantara MD [address] [place] [address] 05/14/2022 Laboratory Laboratory Processing [facility] Mobile Home Draw [address] [place] [address] 05/15/2022 [facility] 58 60 [facility] [place] [address] 2022 Office Visit Pulmonary Jesus Bonilla MD [address] [place] [address] 09/02/2022 Office Visit Otolaryngology Jazmine Whitehead PA-C [address] [place] [address] Pending Results Name Type Priority Associated Diagnoses Date /Time DIFFUSION CAPACITY (DLCO) Procedures Routine COPD, group D, by GOLD 2017 classification ([facility]) 05/07/2022 2:41 PM EDT SPIROMETRY B/A BRONCHODILATOR Procedures Routine COPD, group D, by GOLD 2017 classification ([facility]) 05/07/2022 2:41 PM EDT Scheduled Procedures Name [...] exists LUNG CANCER SCREENING - USE SMARTSET 66862 Completed 03/16/2022 GARDASIL-HPV IMMUNIZATION SERIES Aged Out [...] COPD, group D, by GOLD 2017 classification ([facility]) SPIROMETRY B/A BRONCHODILATOR Routine 05/07/2022 2:41 PM EDT COPD, group D, by GOLD 2017 classification ([facility]) documented in this encounter Visit Diagnoses Diagnosis COPD, group D, by GOLD 2017 classification ([facility])- Primary documented in this encounter Administered Medications [...] Documents on File Type Date Recorded Patient Recreation Assistant Expl 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 Advanced Directive 11/02/2011 12:00 AM Care Teams Stone Polisher Relationship Specialty Start Date End Date Roger Alexandra MD 132 [facility] [place] [address] PCP - General Family Medicine 12/29/19 documented as of this encounter
--- OUTSIDE RECORDS SUMMARY | 2023-07-25 04:38 | External Medical Summary | Summary of Care ---
Author Name Unknown Organization [place] [address] Care Team Providers Care Vehicle Return Associate Name Role Phone Roger Alexandra MD Primary Care Provider [phone] Reason for Visit * Reason Onset Date Comments Test Results 05/08/2022 PFT Encounter Details Date Type Department Care Team Description 05/08/2022 Telephone Pulmonary Medicine, [facility] [address] [place] [address] Jesus Bonilla MD [address] [facility] [place] [id number] Test Results (PFT) Allergies Active Allergy Reactions Severity Noted Date [...] daily. 30 Cap 5 05/05/2021 Active Nystatin 980457 UNIT/GM External Powder (Nyamyc) apply to affected [...] D, by GOLD 2017 classification ([facility]) Inhale by mouth 1 Puff in the [...] Telephone Encounter - Jesus Bonilla MD - 05/08/2022 4:01 PM EDT pft with normal teresa, low diffusion capacity (likely from her COPD. Will discuss further at upcoming appt documented in this encounter Plan of Treatment Upcoming Encounters Date Type Specialty Care Team Description 05/11/2022 Telemedicine Psychiatry Hugo Alcantara MD [address] [place] [address] 05/14/2022 Laboratory Laboratory Processing [facility], [facility] Mobile Home Draw [address] [place], [place] [address] 05/15/2022 [facility] [address] [facility] [address] Office Visit Pulmonary Jesus [facility] [address] [facility] [address] 09/02/2022 Office Visit Otolaryngology Jazmine Whitehead PA-C 132 [facility] [place] [address] Scheduled Procedures Name Priority Associated Diagnoses Date/Ti [...] exists LUNG CANCER SCREENING - USE SMARTSET 22211 Completed 03/16/2022 GARDASIL-HPV IMMUNIZATION SERIES Aged Out No longer eligible based on patient's age to complete this topic MENINGOCOCCAL (MENACTRA/MENVEO) Aged Out No longer eligible based on patient's age to complete this topic documented as of this encounter Implants Not on filedocumented as of this encounter Advance Directives Documents on File Type Date Recorded Patient Information Security Risk Analyst Expl 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 Advanced Directive 11/02/2011 12:00 AM Care Teams Vehicle Return Associate Relationship Specialty Start Date End Date Roger Alexandra MD [address] [place] [address] PCP - General Family Medicine 12/29/19 documented as of this encounter
--- OUTSIDE RECORDS SUMMARY | 2023-07-25 04:38 | External Medical Summary | Summary of Care ---
Author Name Unknown Organization [facility] Address [place] [address] Care Team Providers Care Clinical Field Specialist Name Role Phone Roger Alexandra MD Primary Care Provider [phone] [phone] Reason for Visit * Reason Comments Pulmonary Function Test PFT Encounter Details Date Type Department Care Team Description 05/07/2022 PulmDiagnostic Pulmonary Function Lab, [facility] [address] [place] [address] [place], [address]ft [address] [place] [address] COPD, group D, by GOLD 2017 classification ([facility])* Allergies Active Allergy Reactions Severity Noted Date [...] daily. 30 Cap 5 05/05/2021 Active Nystatin 041101 UNIT/GM External Powder (Nyamyc) apply to affected [...] classification ([facility]) Inhale by mouth 1 Puff in the [...] Telemedicine Psychiatry Hugo Alcantara MD [address] [place] [address] 05/14/2022 Laboratory Laboratory Processing [facility] Mobile Home Draw [address] [place] [address] 05/15/2022 [facility] 58 60 [facility] [place] [address] 2022 Office Visit Pulmonary Jesus Bonilla MD [address] [place] [address] 09/02/2022 Office Visit Otolaryngology Jazmine Whitehead PA-C [address] [address] Pending Results Name Type Priority Associated Diagnoses Date /Time DIFFUSION CAPACITY (DLCO) Procedures Routine COPD, group D, by GOLD 2017 classification ([facility]) 05/07/2022 2:41 PM EDT SPIROMETRY B/A BRONCHODILATOR Procedures Routine COPD, group D, by GOLD 2017 classification ([facility]) 05/07/2022 2:41 PM EDT Scheduled Procedures Name [...] exists LUNG CANCER SCREENING - USE SMARTSET [address] Completed 03/16/2022 GARDASIL-HPV IMMUNIZATION SERIES Aged Out [...] classification ([facility]) SPIROMETRY B/A BRONCHODILATOR Routine 05/07/2022 2:41 PM EDT COPD, group D, by GOLD 2017 classification ([facility]) documented in this encounter Visit Diagnoses Diagnosis COPD, group D, by GOLD 2017 classification ([facility])- Primary documented in this encounter Administered Medications [...] Documents on File Type Date Recorded Patient Credit And Loan Collections Supervisor Expl 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 Advanced Directive 11/02/2011 12:00 AM Care Teams Clinical Field Specialist Relationship Specialty Start Date End Date Roger Alexandra MD 132 [facility] [place] [address] PCP - General Family Medicine 12/29/19 documented as of this encounter
--- OUTSIDE RECORDS SUMMARY | 2023-07-25 04:38 | External Medical Summary | Summary of Care ---
Author Name Unknown Organization [facility] Address [facility] [place] [address] Care Team Providers Care Boulevard Glassware Replacer Name Role Phone Roger Alexandra MD Primary Care Provider [phone] [phone] Reason for Visit * Reason Comments Dosage Adjustment Via Phone (anticoag Cl inic) Encounter Details Date Type Department Care Team Description 04/17/2022 Anticoagulation Pharmacy Call Center [address] [facility] [place] [address] Telepharmacy, [facility] [address] [place] [address] Anticoagulation management encounter* Allergies Active Allergy Reactions Severity Noted Date Comments Aspirin Unknown 12/12/2007 von Willebrand's disease Salicylates 03/01/2000 von Willebrand's disease documented as of this encounter (statuses as of 04/17/2022) Medications Medication Sig Dispensed Refills Start Date End Date Status OXYGEN 4 L during the day as needed and at bedtime 0 02/14/2015 Active Disposable Brief X-LargeIndications:O veractive bladder Attends X-Large Super Absorb Underwear 32 Each 2 03/18/2021 Active Vitamin D (Cholecalciferol) 25 MCG (1000 UT) Oral Capsule Take 1 Cap by mouth daily. 30 Cap 5 05/05/2021 Active Nystatin 142671 UNIT/GM External Powder (Nyamyc) apply to affected [...] as of this encounter (statuses as of 04/17/2022) Active Problems Problem Noted Date History of [...] as of this encounter (statuses as of 04/17/2022) Resolved Problems Problem Noted Date Resolved Date [...] as of this encounter (statuses as of 04/17/2022) Immunizations Name Administration Dates Next Due H1N1 [...] encounter Progress Notes * DANIEL Morley - 04/17/2022 10:24 AM EDT Contacts Type Contact Phone 04/17/2022 09:51 AM EDT Phone (Outgoing) Kimberly Kendall (Self) [phone] (M) Patient Findings Negatives: Signs/symptoms of thrombosis, [...] as noted by Pharmacist: Yes DANIEL Morley 04/17/2022, 10:24 AM * Kim Mercado RPh - 04/17/2022 8:31 AM EDT Coumadin Clinic (region specific) Current Warfarin Dose As of 04/17/2022 Warfarin maintenance plan: 5 mg (5 mg x 1) every day INR Result As of 04/17/2022 INR goal: 2.0-3.0 INR used for dosin.62 (04/16/2022) Warfarin Plan As of 04/17/2022 Full warfarin instructions: 5 mg every day No change documented: Kim Mercado RPh Next INR check: 05/14/2022 Repeat PT/INR in 4 week(s) Weekly dose: not changed Additional Dosing Information: Description L Also sent MyG after trying to call Tech to contact patient with dose instructions as noted. Kim Mercado RPh 04/17/2022, 8:31 AM documented in this encounter Plan of Treatment Upcoming Encounters Date Type Specialty Care Team Description 05/07/2022 PulmDiagnostic Pulmonary Function West, Pft [address] [place] [address] 05/11/2022 Telemedicine Psychiatry Hugo Alcantara MD [address] [place] [address] 05/14/2022 Laboratory Laboratory Processing [facility], [facility] Mobile Home Draw [address] [place] [address] 05/15/2022 [facility] 58 60 [place] [address] 08/21/2022 Office Visit Pulmonary Jesus Bonilla MD [address] [facility] [address] 09/02/2022 Office Visit Otolaryngology Jazmine Whitehead PA-C 132 [facility] [place] [address] Scheduled Procedures Name Priority Associated Diagnoses Date/Ti [...] exists LUNG CANCER SCREENING - USE SMARTSET 564[address] Completed 03/16/2022 GARDASIL-HPV IMMUNIZATION SERIES Aged Out [...] Documents on File Type Date Recorded Patient Filter Operator Expl 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 Advanced Directive 11/02/2011 12:[address] Glassware Replacer Relationship Specialty Start Date End Date Roger Alexandra MD [address] [place] [address] PCP - [facility] Medicine 12/29/19 documented as of this encounter
--- OUTSIDE RECORDS SUMMARY | 2023-07-25 04:38 | External Medical Summary | Summary of Care ---
Author Name Unknown Organization [place] [address] Care Team Providers Care Formation Testing Operator Name Role Phone Jeevan Mclean MD Primary Care Provider [phone] [phone] Reason for Visit * Reason Onset Date Comments Medication Refill 05/05/2022 Encounter Details Date Type Department Care Team Description 05/05/2022 Refill Family Practice [facility] [address] [place] [place] [address] Jeevan Mclean MD 132 [facility] [place] [address] Chronic bilateral low back pain without sciatica Allergies Active Allergy Reactions Severity Noted Date Comments Aspirin Unknown 12/12/2007 von Willebrand's disease Salicylates 03/01/2000 von Willebrand's disease documented as of this encounter (statuses as of 05/05/2022) Medications Medication Sig Dispensed Refills Start Date End Date Status OXYGEN 4 L during the day as needed and at bedtime 0 02/14/2015 Active Disposable Brief X-LargeIndications: Overactive bladder Attends X-Large Super Absorb Underwear 32 Each 2 03/18/2021 Active Vitamin D (Cholecalciferol) 25 MCG (1000 UT) Oral Capsule Take 1 Cap by mouth daily. 30 Cap 5 05/05/2021 Active Nystatin 336234 UNIT/GM External Powder (Nyamyc) apply to affected [...] ndications:COPD, group D, by GOLD 2017 classification ([facility]) Inhale by mouth 1 Puff [...] Pain, Severe. 90 Tablet 0 05/05/2022 Active traMADol HCl 100 MG Oral TabletIndications:C hronic bilateral low back pain without sciatica Take by mouth 100 mg every 8 hours as needed for Pain, Moderate or Pain, Severe. 90 Tablet 0 04/07/2022 2 Discontinue d(Refill) Hospital, Clinic, or Other [...] as of this encounter (statuses as of 05/05/2022) Active Problems Problem Noted Date History of [...] as of this encounter (statuses as of 05/05/2022) Resolved Problems Problem Noted Date Resolved Date [...] as of this encounter (statuses as of 05/05/2022) Immunizations Name Administration Dates Next Due H1N1 [...] Telephone Encounter - Jeevan Mclean MD - 05/05/2022 9:09 AM EDT Signed Prescriptions: Disp Refills traMADol HCl 100 MG Oral Tablet 90 Tab*0 Sig: Take by mouth 100 mg every 8 hours as needed for Pain, Moderate or Pain, Severe. Authorizing Provider: JEEVAN MCLEAN * Telephone Encounter - Alvarez Hope [facility] - 05/05/2022 8:52 AM EDT Pending Prescriptions: Disp Refills traMADol HCl 100 MG Oral Tablet 90 Tab*0 Sig: Take by mouth 100 mg every 8 hours as needed for Pain, Moderate or Pain, Severe. * Telephone Encounter - Alvarez Hope [facility] - 05/05/2022 8:52 AM EDT I have reviewed the patients controlled substance dispensing history in the Prescription Drug Monitoring Program in compliance with the [facility] regulations before prescribing a controlled substance. PDMP checked on 05/05/2022. Pending Prescriptions: Disp Refills traMADol HCl 100 MG Oral Tablet 90 Tab*0 Sig: Take by mouth 100 mg every 8 hours as needed for Pain, Moderate or Pain, Severe. Last Visit: 01/23/2022 (in office), 03/14/2021 (telemedicine) Next Visit: Visit date not found Date medication was last filled: 04/09/2022 Date medication is due for refill: 05/08/2022 Pharmacy: [facility] [address] Is this request for a controlled [...] appropriate. Thanks, Alvarez Hope Pharm.D. Clinical Pharmacist [facility] [phone] 05/05/2022, 8:52 AM * Telephone Encounter - Blanche Polk [facility] - 05/05/2022 8:44 AM EDT Pt states she is out of meds. Did you pend patient's preferred pharmacy and medication before forwarding?yes Pharmacy: [facility] [place] [address] Pending Prescriptions: Disp Refills traMADol HCl 100 MG Oral Tablet 90 Tab*0 Sig: Take by mouth 100 mg every 8 hours as needed for Pain, Moderate or Pain, Severe. Last Visit: 01/23/2022 (in office), 03/14/2021 (telemedicine) Next Visit: Visit date not found If no future appointments scheduled, and last appointment is greater than a year ago, please schedule patient for a follow-up appointment Last date the medication was ordered: 04/07/22 Is this request for a controlled substance?Yes, What was the last refill date 04/07/22 w/ quantity 90 and dosage 100 mg [...] West, [address] [place] [address] 05/11/2022 Telemedicine Psychiatry Hugo Alcantara MD [address] [place] [address] 05/14/2022 Laboratory Laboratory Processing [facility], [facility] Mobile Home Draw [address] [place] [address] 05/15/2022 [facility] 58 60 [facility] [place] [address] 08/21/2022 Office Visit Pulmonary Jesus Bonilla MD [address] [place] [id number] 09/02/2022 Office Visit Otolaryngology Jazmine Whitehead PA-C 132 [facility] [place] [address] Scheduled Procedures Name Priority Associated Diagnoses Date/Ti [...] exists LUNG CANCER SCREENING - USE SMARTSET 51777 Completed 03/16/2022 GARDASIL-HPV IMMUNIZATION SERIES Aged Out [...] Documents on File Type Date Recorded Patient Timber Killer Expl 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 Advanced Directive 11/02/2011 12:00 AM Care Teams Formation Testing Operator Relationship Specialty Start Date End Date Jeevan Mclean MD 132 [facility] [place] [address] PCP - General Family Medicine 12/29/19 documented as of this encounter
--- OUTSIDE RECORDS SUMMARY | 2023-07-25 04:39 | External Medical Summary | Summary of Care ---
Author Name Unknown Organization [place] [address] Care Team Providers Care Sprinkler Fitter Helper Name Role Phone Roger Alexandra MD Primary Care Provider +1 [phone] Reason for Visit * Reason Onset Date Comments Test Results 03/30/2022 Encounter Details Date Type Department Care Team Description 03/30/2022 Telephone Pulmonary Medicine, [facility] [address] [place] [address] Services, Scheduling [address] [place] [address] Test Results Allergies Active Allergy Reactions Severity Noted Date Comments Aspirin Unknown 12/12/2007 von Willebrand's disease Salicylates 03/01/2000 von Willebrand's disease documented as of this encounter (statuses as of 03/30/2022) Medications Medication Sig Dispensed Refills Start Date End Date Status OXYGEN 4 L during the day as needed and at bedtime 0 02/14/2015 Active Disposable Brief X-LargeIndications:O veractive bladder Attends X-Large Super Absorb Underwear 32 Each 2 03/18/2021 Active Vitamin D (Cholecalciferol) 25 MCG (1000 UT) Oral Capsule Take 1 Cap by mouth daily. 30 Cap 5 05/05/2021 Active Nystatin 266125 UNIT/GM External Powder (Nyamyc) apply to affected area twice a day 15 g 1 11/04/2021 Active busPIRone HCl 10 MG Oral Tablet (Buspar) Take by mouth 1 Tablet in the morning AND 1 Tablet before bedtime. 60 Tablet 2 01/05/2022 Active busPIRone HCl 15 MG Oral Tablet (Buspar)Indications: Take in the morning Take by mouth 15 mg once . 0 Active ProAir HFA 108 (90 Base) MCG/ACT [...] the evening for Anxiety. 90 Tablet 1 02/26/2022 Active Mirtazapine 15 MG Oral Tablet (Remeron) Take by mouth 1 Tablet before bedtime. 30 Tablet 2 02/26/2022 Active traMADol HCl 100 MG Oral TabletIndications:Ch ronic bilateral low back pain without sciatica Take by mouth 100 mg every 8 hours as needed for Pain, Moderate or Pain, Severe. 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 Please call her cell listed in chart and she has an video appt at 230 hoping to get in contact before that appt. documented in this encounter Plan of Treatment Upcoming Encounters Date Type Specialty Care Team Description 03/30/2022 Telemedicine Psychiatry Hugo Alcantara MD [address] [place] [address] 03/31/2022 [facility] [address] [place] [address] 05/07/2022 PulmDiagnostic Pulmonary Function [place], [address]ft [address] [facility] [place] [address] 08/21/2022 Office Visit Pulmonary Jesus Bonilla MD [address] [facility] [place] [address] 09/02/2022 Office Visit Otolaryngology Jazmine Whitehead PA-C [address] [place] [address] Scheduled Procedures Name Priority Associated Diagnoses Date/Ti me COLONOSCOPY FLEXIBLE PROXIMAL DIAGNOSTIC Recall History of colon polyps Health Maintenance Due Date Last Done Comments COVID-19 Vaccine (1) 1965 Pneumococcal Vaccine: Pediatrics (0 to 5 [...] exists LUNG CANCER SCREENING - USE SMARTSET 92752 Completed 03/16/2022 GARDASIL-HPV IMMUNIZATION SERIES Aged Out No longer eligible based on patient's age to complete this topic MENINGOCOCCAL (MENACTRA/MENVEO) Aged Out No longer eligible based on patient's age to complete this topic documented as of this encounter Implants Not on filedocumented as of this encounter Advance Directives Documents on File Type Date Recorded Patient Hot Tar Roofer Expl 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 Advanced Directive 11/02/2011 12:00 AM Care Teams Sprinkler Fitter Helper Relationship Specialty Start Date End Date Roger Alexandra MD [address] [place] [address] PCP - General Family Medicine 12/29/19 documented as of this encounter
--- OUTSIDE RECORDS SUMMARY | 2023-07-25 04:39 | External Medical Summary | Summary of Care ---
Author Name Unknown Organization [place] [address] Care Team Providers Care Outdoor Studies Director Name Role Phone Roger Alexandra MD Primary Care Provider [phone] [phone] Reason for Visit * Reason Onset Date Comments Order Request 04/15/2022 Encounter Details Date Type Department Care Team Description 04/15/2022 Telephone Family Practice [facility] [address] [place] [id number] Roger Alexandra MD [address] [facility] [place] [id number] Order Request Allergies Active Allergy Reactions Severity Noted Date Comments Aspirin Unknown 12/12/2007 von Willebrand's disease Salicylates 03/01/2000 von Willebrand's disease documented as of this encounter (statuses as of 04/15/2022) Medications Medication Sig Dispensed Refills Start Date End Date Status OXYGEN 4 L during the day as needed and at bedtime 0 02/14/2015 Active Disposable Brief X-LargeIndications:O veractive bladder Attends X-Large Super Absorb Underwear 32 Each 2 03/18/2021 Active Vitamin D (Cholecalciferol) 25 MCG (1000 UT) Oral Capsule Take 1 Cap by mouth daily. 30 Cap 5 05/05/2021 Active Nystatin 726103 UNIT/GM External Powder (Nyamyc) apply to affected [...] ications:COPD, group D, by GOLD 2017 classification (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 Spoke to Damon in the company and he needs information from her last pulmonology visit. documented in this encounter Plan of Treatment Upcoming Encounters Date Type Specialty Care Team Description 04/16/2022 Laboratory Laboratory Processing [facility] Mobile Home Draw [address] [place] [address] 04/17/2022 [facility] [address] [place] [address] 05/07/2022 PulmDiagnostic Pulmonary Function [facility] Pft [address] [facility] [place] [address] 05/11/2022 Telemedicine Psychiatry Hugo Alcantara MD [address] [place], [place] [phone] 08/21/2022 Office Visit Pulmonary Jesus Bonilla MD [address] [place] [address] 09/02/2022 Office Visit Otolaryngology Jazmine Whitehead PA-C [address] [employer] [facility] [place] [address] Scheduled Procedures Name Priority Associated Diagnoses Date/Ti [...] exists LUNG CANCER SCREENING - USE SMARTSET 53263 Completed 03/16/2022 GARDASIL-HPV IMMUNIZATION SERIES Aged Out No longer eligible based on patient's age to complete this topic MENINGOCOCCAL (MENACTRA/MENVEO) Aged Out No longer eligible based on patient's age to complete this topic documented as of this encounter Implants Not on filedocumented as of this encounter Advance Directives Documents on File Type Date Recorded Patient Uc Architect Expl 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 Advanced Directive 11/02/2011 12:00 AM Care Teams Outdoor Studies Director Relationship Specialty Start Date End Date Roger Alexandra MD [address] [place] [address] [place] [address] PCP - General Family Medicine 12/29/19 documented as of this encounter
--- OUTSIDE RECORDS SUMMARY | 2023-07-25 04:39 | External Medical Summary | Summary of Care ---
Author Name Unknown Organization [facility] Address [facility] [place] [address] Care Team Providers Care Youth Court Judge Name Role Phone Roger Alexandra MD Primary Care Provider [phone] [phone] Reason for Visit * Reason Comments Dosage Adjustment Via Phone (anticoag Cl inic) Encounter Details Date Type Department Care Team Description 03/30/2022 Anticoagulation Pharmacy Call Center [address] [place] [address] Telepharmacy, [facility] [address] [place] [address] Anticoagulation management encounter* Allergies Active Allergy Reactions [...] daily. 30 Cap 5 05/05/2021 Active Nystatin 489873 UNIT/GM External Powder (Nyamyc) apply to affected [...] as of this encounter Progress Notes * Christine Camejo, RUFINA - 03/30/2022 3:28 PM EDT Contacts Type Contact Phone 03/30/2022 03:26 PM EDT Phone (Outgoing) Kimberly Kendall (Self) [phone] (M) Patient Findings Negatives: Signs/symptoms of thrombosis, [...] communicated as noted by Pharmacist: Yes RUFINA Siddiqui 03/30/2022, 3:28 PM * Kim Mercado [facility] - 03/30/2022 2:54 PM EDT Images from the original note were not included. Coumadin Clinic (region specific) Current Warfarin Dose As of 03/30/2022 Warfarin maintenance plan: 5 mg (5 mg x 1) every day INR Result As of 03/30/2022 INR goal: 2.0-3.0 INR used for dosin.02 (03/30/2022) Warfarin Plan As of 03/30/2022 Full warfarin instructions: 5/16: Hold; 5/17: Hold; Otherwise 5 mg every day Next INR check: 04/16/2022 Repeat PT/INR in 2.5 week(s) Weekly dose: not changed Additional Dosing Information: Description [facility] Also sent MyG after trying to call Tech to contact patient with dose instructions as noted. Kim Mercado [facility] 03/30/2022, 2:54 PM documented in this encounter Plan of Treatment Upcoming Encounters Date Type Specialty Care Team Description 04/16/2022 Laboratory Laboratory Processing [facility] [facility] [address] [facility] [address] 04/17/2022 [facility] [address] [facility] [place] [address] 05/07/2022 PulmDiagnostic Pulmonary Function [place], [address]ft [address] [place] [address] 08/21/2022 Office Visit Pulmonary Jesus Bonilla MD [address] [place] [address] 09/02/2022 Office Visit Otolaryngology Jazmine Whitehead PA-C [address] [place] [address] Scheduled Procedures Name Priority Associated Diagnoses Date/Ti [...] exists LUNG CANCER SCREENING - USE SMARTSET 39897 Completed 03/16/2022 GARDASIL-HPV IMMUNIZATION SERIES Aged Out [...] Documents on File Type Date Recorded 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
--- OUTSIDE RECORDS SUMMARY | 2023-07-25 04:39 | External Medical Summary | Summary of Care ---
Author Name Unknown Organization [place] [address] Care Team Providers Care Chore Tender Name Role Phone Roger Alexandra MD Primary Care Provider [phone] [phone] Reason for Visit * Reason Comments eRx-Medication Refill Encounter Details Date Type Department Care Team Description 04/07/2022 Refill Family Practice [facility] [address] [place] [id number] Roger Alexandra MD [address] [place] [address] Chronic bilateral low back pain without sciatica Allergies Active Allergy Reactions Severity Noted Date Comments Aspirin Unknown 12/12/2007 von Willebrand's disease Salicylates 03/01/2000 von Willebrand's disease documented as of this encounter (statuses as of 04/08/2022) Medications Medication Sig Dispensed Refills Start Date End Date Status OXYGEN 4 L during the day as needed and at bedtime 0 02/14/2015 Active Disposable Brief X-LargeIndications:O veractive bladder Attends X-Large Super Absorb Underwear 32 Each 2 03/18/2021 Active Vitamin D (Cholecalciferol) 25 MCG (1000 UT) Oral Capsule Take 1 Cap by mouth daily. 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 [...] as of this encounter (statuses as of 04/08/2022) Immunizations Name Administration Dates Next Due H1N1 [...] Miscellaneous Notes * Telephone Encounter - Yumiko Israel michelle - 04/08/2022 10:57 AM EDT Refused Prescriptions: Disp Refills traMADol HCl 100 MG Oral Tablet 90 Tab* Sig: take 1 tablet by mouth every 8 hours if needed for MODERATE TO SEVERE PAINRefused By: Lorena ISRAEL for Refusal: Duplicate Request documented in this encounter Plan of Treatment Upcoming Encounters Date Type Specialty Care Team Description 04/16/2022 Laboratory Laboratory Processing [facility], [facility] Mobile Home Draw [address] [place] [address] 04/17/2022 [facility] [address] [place] [address] 05/07/2022 PulmDiagnostic Pulmonary Function [facility] Pf [address] [place] [address] 05/11/2022 Telemedicine Psychiatry Hugo Alcantara MD [address] [place] [address] 08/21/2022 Office Visit Pulmonary Jesus Bonilla MD [address] [place] [id number] 09/02/2022 Office Visit Otolaryngology Jazmine Whitehead PA-C [address] [place] [address] Scheduled Procedures Name Priority Associated [...] exists LUNG CANCER SCREENING - USE SMARTSET 65744 Completed 03/16/2022 GARDASIL-HPV IMMUNIZATION SERIES Aged Out [...] Documents on File Type Date Recorded 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
--- OUTSIDE RECORDS SUMMARY | 2023-07-25 04:39 | External Medical Summary | Summary of Care ---
Author Name Unknown Organization [facility] Address [place] [address] Care Team Providers Care Office Clerk Name Role Phone Roger Alexandra MD Primary Care Provider [phone] [phone] Reason for Visit * Reason Onset Date Comments Order Request 04/15/2022 Encounter Details Date Type Department Care Team Description 04/15/2022 Telephone Pulmonary Medicine Vangie Meier [address] [place] [id number] Jesus Bonilla MD [address] [place] [id number] Order Request Allergies Active Allergy Reactions Severity [...] daily. 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 She states that she spoke with [facility] [employer] in [facility] and they told her that her order was on hold. Spoke to Damon with [employer] and he states that they need the documentation from her recent pulmonology appoinment. (February 13 & 03/24) Fax #: [phone] ATTN: [facility] STL [id number] She states she only has 3 left. documented in this encounter Plan of Treatment Upcoming Encounters Date Type Specialty Care Team Description 04/16/2022 Laboratory Laboratory Processing [place], [facility] Mobile Home Draw [address] [place] [address] 04/17/2022 [facility] [address] [place] [address] 05/07/2022 PulmDiagnostic Pulmonary Function [place], [address]ft [address] [place] [address] 05/11/2022 Telemedicine Psychiatry Hugo Alcantara MD [address] [place] [address] 08/21/2022 Office Visit Pulmonary Jesus Bonilla MD [address] [place] [address] 09/02/2022 Office Visit Otolaryngology Jazmine Whitehead PA-C [address] [place] [address] Scheduled Procedures Name Priority Associated Diagnoses Date/Ti [...] exists LUNG CANCER SCREENING - USE SMARTSET [address]8878 Completed 03/16/2022 GARDASIL-HPV IMMUNIZATION SERIES Aged Out No longer eligible based on patient's age to complete this topic MENINGOCOCCAL (MENACTRA/MENVEO) Aged Out No longer eligible based on patient's age to complete this topic documented as of this encounter Implants Not on filedocumented as of this encounter Advance Directives Documents on File Type Date Recorded Patient Popped Corn Oven Attendant Expl 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
--- OUTSIDE RECORDS SUMMARY | 2023-07-25 04:39 | External Medical Summary | Summary of Care ---
Author Name Unknown Organization [place] [address] Care Team Providers Care Registered Mail Clerk Name Role Phone Rogre Alexandra MD Primary Care Provider [phone] [phone] Reason for Visit * Reason Onset Date Comments Test Results 03/30/2022 Encounter Details Date Type Department Care Team Description 03/30/2022 Telephone Pulmonary Medicine, [facility] [address] [place] [address] Services, Scheduling [address] [place] [address] Test Results Allergies Active Allergy Reactions Severity [...] daily. 30 Cap 5 1 Active Nystatin 566077 UNIT/GM External Powder (Nyamyc) apply to affected [...] spasms. 90 Tablet 3 2 Active Mirtazapine 15 MG Oral Tablet (Remeron) Take by mouth 1 Tablet before bedtime. 30 Tablet 2 2 Active traMADol HCl 100 MG Oral TabletIndications: Chronic bilateral low back pain without sciatica Take by mouth 100 mg every 8 hours as needed for Pain, Moderate or Pain, Severe. 90 Tablet 0 2 Active busPIRone HCl 10 MG Oral Tablet (Buspar) Take by mouth 1 Tablet in the morning AND 1 Tablet before bedtime. 60 Tablet 2 2 03/30/20 22 Discontinued busPIRone HCl 15 MG Oral Tablet (Buspar)Indication s:Take in the morning Take by mouth 15 mg once . 0 03/30/20 22 Discontinued LORazepam 0.5 MG Oral Tablet (Ativan) Take by mouth 1 Tablet as needed in the morning AND 1 Tablet as needed at noon AND 1 Tablet as needed in the evening for Anxiety. 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 Please call her cell listed in chart and she has an video appt at 230 hoping to get in contact before that appt. documented in this encounter Plan of Treatment Upcoming Encounters Date Type Specialty Care Team Description 03/30/2022 [facility] [address] 60 [facility] [place] [address] 04/16/2022 Laboratory Laboratory Processing [facility], [facility] Mobile Home Draw [address] [place] [address] 04/17/2022 [facility] [address] [facility] [place] [address] 05/07/2022 PulmDiagnostic Pulmonary Function [place], [address]ft [address] [place] [address] 08/21/2022 Office Visit Pulmonary Jesus Bonilla MD [address] [place] [address] 09/02/2022 Office Visit Otolaryngology Jazmine Whitehead PA-C [address] [place] [address] Scheduled Procedures Name Priority Associated Diagnoses Date/Ti [...] Documents on File Type Date Recorded 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 [place] [address] PCP - General Family Medicine 12/29/19 documented as of this encounter
--- OUTSIDE RECORDS SUMMARY | 2023-07-25 04:39 | External Medical Summary ---
Author Name Unknown Address Unknown Organization K[facility] [address] [place] [address] Laboratory Report Ordering Provider Test Date Status SUMAN STANFORD 04/16/2022 11:43:00 Final Observation Date Value Abnormality Reference (Units ) Status PT 04/16/2022 11:43:00 27.9 Above high normal 11 .5-14.6 (seconds) Final INR 04/16/2022 11:43:00 2.62 Above high normal 0. 84-1.14 Final Performing Location [facility] [place] [address] [place] [address]
--- OUTSIDE RECORDS SUMMARY | 2023-07-25 04:39 | External Medical Summary | Summary of Care ---
Author Name Unknown Organization [place] [address] Care Team Providers Care Ecommerce Project Manager Name Role Phone Roger Alexandra MD Primary Care Provider [phone] Reason for Visit * Reason Onset Date Comments Med Request 04/15/2022 Encounter Details Date Type Department Care Team Description 04/15/2022 Telephone Psychiatry, [facility] [address] [place], [place] [id number] Hugo Alcantara MD [address] [place], [place] [phone] Med Request Allergies Active Allergy Reactions Severity [...] daily. 30 Cap 5 05/05/2021 Active Nystatin 084316 UNIT/GM External Powder (Nyamyc) apply to affected [...] encounter Miscellaneous Notes * Telephone Encounter - Hollister [place]battah, landscape architect and planner - 04/15/2022 1:02 PM EDT Pt calling to request Lorazapam. Informed pt that RX is available at their pharmacy. Pt verbalized understanding and stated they will check with their pharmacy regarding this medication. Thank you, Chepe Ortega Print Designer [facility] Telepharmacy 04/15/2022,1:03 PM documented in this encounter Plan of Treatment Upcoming Encounters Date Type Specialty Care Team Description 04/16/2022 Laboratory Laboratory Processing [facility] Mobile Home Draw [address] [place] [address] 04/17/2022 [facility] [address] [place] [address] 05/07/2022 PulmDiagnostic Pulmonary Function [facility], [address] [place] [address] 05/11/2022 Telemedicine Psychiatry Hugo Alcantara MD [address] [place] [address] 08/21/2022 Office Visit Pulmonary Jesus Bonilla MD [address] [facility] [place] [address] 09/02/2022 Office Visit Otolaryngology Jazmine Whitehead [facility]-C [facility] [place] [address] Scheduled Procedures Name Priority [...] exists LUNG CANCER SCREENING - USE SMARTSET 42300 Completed 03/16/2022 GARDASIL-HPV IMMUNIZATION SERIES Aged Out No longer eligible based on patient's age to complete this topic MENINGOCOCCAL (MENACTRA/MENVEO) Aged Out No longer eligible based on patient's age to complete this topic documented as of this encounter Implants Not on filedocumented as of this encounter Advance Directives Documents on File Type Date Recorded Patient Entry Driver Operator Expl 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
--- OUTSIDE RECORDS SUMMARY | 2023-07-25 04:39 | External Medical Summary | Summary of Care ---
Author Name Unknown Organization [place] [address] Care Team Providers Care Kiln Packer Name Role Phone Roger Alexandra MD Primary Care Provider [phone] Reason for Visit * Reason Comments Oxygen Assessment 3 minute walk with t itration Encounter Details Date Type Department Care Team Description 03/24/2022 PulmDiagnostic Pulmonary Function Lab, [facility] [address] [place] [address] [place], [address] [facility] [place] [address] Chronic hypoxemic respiratory failure (HCC)*; COPD, group D, by GOLD 2017 classification (HCC) Allergies Active Allergy Reactions Severity Noted Date Comments Aspirin Unknown 12/12/2007 von Willebrand's disease Salicylates 03/01/2000 von Willebrand's disease documented as of this encounter (statuses as of 03/24/2022) Medications Medication Sig Dispensed Refills Start Date End Date Status OXYGEN 4 L during the day as needed and at bedtime 0 02/14/2015 Active Disposable Brief X-LargeIndications:O veractive bladder Attends X-Large Super Absorb Underwear 32 Each 2 03/18/2021 Active Vitamin D (Cholecalciferol) 25 MCG (1000 UT) Oral Capsule Take 1 Cap by mouth daily. 30 Cap 5 05/05/2021 Active Nystatin 151039 UNIT/GM External Powder (Nyamyc) apply to affected [...] as of this encounter (statuses as of 03/24/2022) Active Problems Problem Noted Date History of [...] as of this encounter (statuses as of 03/24/2022) Resolved Problems Problem Noted Date Resolved Date [...] as of this encounter (statuses as of 03/24/2022) Immunizations Name Administration Dates Next Due H1N1 [...] Sign Reading Time Taken Comments Blood Pressure 120/80 03/24/2022 12:21 PM EDT Pulse 93 03/24/2022 12:21 PM EDT Temperature 36.6 C (97.9 F) 03/24/2022 1 2:21 PM EDT Respiratory Rate 16 03/24/2022 12:2 1 PM EDT Oxygen Saturation 90% 03/24/2022 12: 21 PM EDT Inhaled Oxygen Concentration - - Weight 119.4 kg (263 lb 3.7 oz) 022 12:21 PM EDT Height 157 cm (5' 1.81") 03/24/2022 12: 21 PM EDT Body Mass Index 48.44 03/24/2022 12:21 PM EDT documented in this encounter Nursing Notes * Leighton Malcolm RRT - 03/24/2022 12:32 PM EDT Kimberly Kendall was identified by name, Date of : (1960), and . Vitals were obtained for testing. Body mass index is 48.44 kg/m. SPO2 on room air at rest was 86% HR 1113.Pt placed on 2 liters for walk. Pt held onto wheelchar for walk. Exercise oximetry performed on 2 liters. Pt used own tank. x 3 minutes. Pt ambulated 240 feet/ 73 meters. 1 rest periods was required for 22 seconds. Lowest SPO2 on 2 liters was 85%. Pt placed on 3 liters. Exercise oximetry performed on 3 liters x 3 minutes. Pt ambulated 270 feet/ 82 meters. 2 rest periods were required for 27 seconds.. Lowest SPO2 on 3 liters was 88%. Pt placed on 4 liters. Exercise oximetry performed on 4 litersx 3 minutes. Pt ambulated 360 feet/ 110 meters. 1 rest periods was required for 3 seconds. Lowest SPO2 on 4 liters was 89%. documented in this encounter Plan of Treatment Upcoming Encounters Date Type Specialty Care Team Description 03/30/2022 Laboratory [facility] Mobile Home Draw [address] [place] [address] 03/30/2022 Telemedicine Psychiatry Hugo Alcantara MD [address] [place], [place] [phone] 03/31/2022 [facility] [address] [place] [address] 05/07/2022 PulmDiagnostic Pulmonary Function [place], [address] [facility] [place] [address] 08/21/2022 Office Visit Pulmonary Jesus Bonilla MD [address] [place] [id number] 09/02/2022 Office Visit Otolaryngology Jazmine Whitehead PA-C [address] [place] [address] Scheduled Procedures Name Priority Associated Diagnoses Date/Ti me COLONOSCOPY FLEXIBLE PROXIMAL DIAGNOSTIC Recall History of colon polyps Health Maintenance Due Date Last Done Comments COVID-19 Vaccine (1) 1965 Zoster Vaccines (1 of 2) 2010 BREAST [...] ASSESSMENT COMPLETED IN PAST YEAR FOR COPD 02/13/2023 03/24/2022 DIABETES SCREEN EVERY 3 YRS-AGE 45 AND ABOVE 01/15/2025 01/15/2022, 01/08/2022, 01/03/2022, Additional history exists Pneumococcal Vaccine: Pediatrics (0 to 5 Years) and At-Risk Patients (6 to 64 Years) (2 of 2 - PPSV23) 2025 03/20/2009 COLONOSCOPY-EVERY 5 YRS AGES 18-100 11/12/2025 11/12/2020, 05/22/2013, 08/21/2011, Additional history exists Influenza Vaccine (FLU shot) Completed , 11/11/2021, 09/15/2020, Additional history exists LUNG CANCER SCREENING - USE SMARTSET 59431 Completed 03/16/2022 GARDASIL-HPV IMMUNIZATION SERIES Aged Out [...] Documents on File Type Date Recorded Patient Director Of Instruction Expl 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 Advanced Directive 11/02/2011 12:00 AM Care Teams Kiln Packer Relationship Specialty Start Date End Date Roger Alexandra MD [address] [place] [address] PCP - General Family Medicine 12/29/19 documented as of this encounter
--- OUTSIDE RECORDS SUMMARY | 2023-07-25 04:39 | External Medical Summary ---
Author Name Unknown Address Unknown Organization [facility] [address] [place] [address] Laboratory Report Ordering Provider Test Date Status SUMAN STANFORD 03/30/2022 11:33:00 Final Observation Date Value Abnormality Reference (Units ) Status PT 03/30/2022 11:33:00 38.7 Above high normal 11 .5-14.6 (seconds) Final INR 03/30/2022 11:33:00 4.02 Above high normal 0. 84-1.14 Final Performing Location [facility] [place] [address] [place] [address]
--- OUTSIDE RECORDS SUMMARY | 2023-07-25 04:39 | External Medical Summary | Summary of Care ---
Author Name Unknown Organization [place] [address] Care Team Providers Care Clinical Nursing Coordinator Name Role Phone Jeevan Mclean MD Primary Care Provider [phone] Reason for Visit * Reason Onset Date Comments Medication Refill 04/06/2022 Encounter Details Date Type Department Care Team Description 04/06/2022 Refill Family Practice [facility] [address] [place] [address] Jeevan Mclean MD [address] [facility] [place] [address] Chronic bilateral low back pain without sciatica Allergies Active Allergy Reactions Severity Noted Date Comments Aspirin Unknown 12/12/2007 von Willebrand's disease Salicylates 03/01/2000 von Willebrand's disease documented as of this encounter (statuses as of 04/07/2022) Medications Medication Sig Dispensed Refills Start Date End Date Status OXYGEN 4 L during the day as needed and at bedtime 0 02/14/2015 Active Disposable Brief X-LargeIndications: Overactive bladder Attends X-Large Super Absorb Underwear 32 Each 2 03/18/2021 Active Vitamin D (Cholecalciferol) 25 MCG (1000 UT) Oral Capsule Take 1 Cap by mouth daily. 30 Cap 5 05/05/2021 Active Nystatin 524217 UNIT/GM External Powder (Nyamyc) apply to affected [...] 2017 classification ([facility]) Inhale by mouth 1 Puff in [...] Pain, Severe. 90 Tablet 0 04/07/2022 Active traMADol HCl 100 MG Oral TabletIndications:C hronic bilateral low back pain without sciatica Take by mouth 100 mg every 8 hours as needed for Pain, Moderate or Pain, Severe. 90 Tablet 0 03/10/2022 2 Discontinue d(Refill) Hospital, Clinic, or Other [...] as of this encounter (statuses as of 04/07/2022) Active Problems Problem Noted Date History of [...] as of this encounter (statuses as of 04/07/2022) Resolved Problems Problem Noted Date Resolved Date [...] as of this encounter (statuses as of 04/07/2022) Immunizations Name Administration Dates Next Due H1N1 [...] Telephone Encounter - Jeevan Mclean MD - 04/07/2022 10:39 AM EDT Signed Prescriptions: Disp Refills traMADol HCl 100 MG Oral Tablet 90 Tab*0 Sig: Take by mouth 100 mg every 8 hours as needed for Pain, Moderate or Pain, Severe. Authorizing Provider: JEEVAN MCLEAN * Telephone Encounter - Nusrat Covington [facility] - 04/07/2022 9:11 AM EDT Pending Prescriptions: Disp Refills traMADol HCl 100 MG Oral Tablet 90 Tab*0 Sig: Take by mouth 100 mg every 8 hours as needed for Pain, Moderate or Pain, Severe. * Telephone Encounter - Nusrat Covington [facility] - 04/07/2022 9:09 AM EDT I have reviewed the patients controlled substance dispensing history in the Prescription Drug Monitoring Program in compliance with the [facility] regulations before prescribing a controlled substance. PDMP checked on 04/07/2022. Pending Prescriptions: Disp Refills traMADol HCl 100 MG Oral Tablet 90 Tab*0 Sig: Take by mouth 100 mg every 8 hours as needed for Pain, Moderate or Pain, Severe. Last Visit: 01/23/2022 (in office), 03/14/2021 (telemedicine) Next Visit: Visit date not found Date medication was last filled: 03/11 Date medication is due for refill: 04/09 [facility]: [id number] [place] [address] Is this request for a controlled substance?and Urine Drug Screen was completed Toxicology results: Results for orders placed [...] Results Review. Please approve if appropriate. Thanks, Nusrat Covington PharmD Clinical Pharmacist [facility] [phone] 04/07/2022, 9:10 AM * Telephone Encounter - Samantha Qureshi CPhT - 04/06/2022 9:07 AM EDT Did you pend patient's preferred pharmacy and medication before forwarding?yes Pending Prescriptions: Disp Refills traMADol HCl 100 [...] appointment Last date the medication was ordered: 03.10.22 Pharmacy: [id number] [place] [address] Is this request for a controlled substance?Yes, What was the last refill date 03.10.22 w/ quantity 90 and dosage 1q8 prn pain and Urine Drug Screen Not completed Urine [...] Care Team Description 04/16/2022 Laboratory Laboratory Processing [facility] [place], [facility] Mobile Home Draw [address] [place] [facility] [place] [address] 04/17/2022 Anticoagulation Pharmacy Telepharmacy, [facility] [address] [facility] [place] [address] 05/07/2022 PulmDiagnostic Pulmonary Function [facility] [address] [facility] [place] [address] 05/11/2022 Telemedicine Psychiatry Hugo Alcantara MD [address] [facility] [place] [address] 08/21/2022 Office Visit Pulmonary Jesus Bonilla MD [address] [place] [phone] 09/02/2022 Office Visit Otolaryngology Jazmine Whitehead PA-C [address] [place] [address] Scheduled Procedures Name Priority Associated Diagnoses Date/Ti [...] exists LUNG CANCER SCREENING - USE SMARTSET 91142 Completed 03/16/2022 GARDASIL-HPV IMMUNIZATION SERIES Aged Out [...] Documents on File Type Date Recorded Patient Store Lead Expl 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 Directive 11/02/2011 12:00 AM Care Teams Clinical Nursing Coordinator Relationship Specialty Start Date End Date Jeevan Mclean MD [address] [place] [address] [place] [address] PCP - General Family Medicine 12/29/19 documented as of this encounter
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
--- OUTSIDE RECORDS SUMMARY | 2023-07-25 04:40 | External Medical Summary | Summary of Care ---
Author Name Unknown Organization [place] [address] Care Team Providers Care Spa Experience Coordinator Name Role Phone Roger Alexandra MD Primary Care Provider [phone] Reason for Visit * Reason Comments Ear Problem Both ears Encounter Details Date Type Department Care Team Description 02/25/2022 Office Visit Otolaryngology [facility] [address] [place] [address] Jazmine Whitehead PA-C [address] [facility] [place] [address] Sensorineural hearing loss (SNHL) of both ears* Allergies Active Allergy Reactions Severity Noted Date Comments Aspirin Unknown 12/12/2007 von Willebrand's disease Salicylates 03/01/2000 von Willebrand's disease documented as of this encounter (statuses as of 02/25/2022) Medications Medication Sig Dispensed Refills Start Date End Date Status OXYGEN 4 L during the day as needed and at bedtime 0 02/14/2015 Active Disposable Brief X-LargeIndications:O veractive bladder Attends X-Large Super Absorb Underwear 32 Each 2 03/18/2021 Active Vitamin D (Cholecalciferol) 25 MCG (1000 UT) Oral Capsule Take 1 Cap by mouth daily. 30 Cap 5 05/05/2021 Active Nystatin 973546 UNIT/GM External Powder (Nyamyc) apply to affected area twice a day 15 g 1 11/04/2021 Active LORazepam 0.5 MG Oral Tablet (Ativan) Take by mouth 1 Tablet as needed in the morning AND 1 Tablet as needed at noon AND 1 Tablet as needed in the evening for Anxiety. 90 Tablet 1 12/15/2021 Active Mirtazapine 7.5 MG Oral Tablet (Remeron) Take by mouth 1 Tablet before bedtime. 30 Tablet 1 12/17/2021 Active busPIRone HCl 10 MG Oral Tablet (Buspar) Take by mouth 1 Tablet in the morning AND 1 Tablet before bedtime. 60 Tablet 2 01/05/2022 Active FLUoxetine HCl 20 MG Oral Capsule (PROzac) Take by mouth 1 Capsule in the morning. In addition to 40mg cap for a total of 60mg daily. 30 Capsule 2 01/05/2022 Active Additional Information Patient taking differently: 20 mg Oral DAILY, (No instructions reported), Reported on 01/21/2022 traZODone HCl 150 MG Oral Tablet (Desyrel) Take by mouth 150 mg before bedtime. 0 01/17/2022 Active busPIRone HCl 15 MG Oral Tablet [...] mouth daily 30 Tablet 5 02/06/2022 Active traMADol HCl 100 MG Oral TabletIndications:Ch ronic bilateral low back pain without sciatica Take by mouth 100 mg every 8 hours as needed for Pain, Moderate or Pain, Severe. 90 Tablet 0 02/09/2022 Active Trelegy Ellipta 100-62.5-25 MCG/INH Aerosol Powder [...] Muscle spasms. 90 Tablet 3 02/16/2022 Active documented as of this encounter (statuses as of 02/25/2022) Active Problems Problem Noted Date History of [...] as of this encounter (statuses as of 02/25/2022) Resolved Problems Problem Noted Date Resolved Date [...] as of this encounter (statuses as of 02/25/2022) Immunizations Name Administration Dates Next Due H1N1 [...] - Pulse - - Temperature 36.2 C (97.2 F) 02/25/2022 8:59 AM ED T Respiratory Rate - - Oxygen Saturation - - Inhaled Oxygen Concentration - - Weight - - Height - - Body Mass Index - - documented in this encounter Progress Notes * Jazmine Whitehead PA-C - 02/25/2022 9:16 AM EDT Images from the original note were not included. Nursing Notes: Valencia Mallory, [facility] 02/25/22 0856 Signed Kimberly Kendall is a 61 year old female who presents today for ear problems. Patient reports Which ear: BOTH EARS How lon MONTHS TO A YEAR Pain: NO Pressure: NO Ringing: YES Drainage: NO Any treatment: NO Hearing loss: NO Any outside hearing aids/hearing test: NO Any history of ear surgeries: NO Pt denies of any pain. History of Present Illness This 61 year old YO female is seen at the request of Roger Alexandra MD for the evaluation of bilateral hearing loss The patient reported that her symptoms started several years ago and are progressive. She feels theleft is worse than the right. The patient also noted left ear tinnitus (intermittent and nonpulsatile). The patinet denied otalgia, otorrhea, and aural fullness. Remaining ear review of symptoms: History of recurrent infections: as a child Head trauma: denied Medical History Patient Active Problem List Diagnosis Code Irritable bowel syndrome with diarrhea K58.0 SIMA (generalized anxiety disorder) F41.1 Obstructive sleep apnea G47.33 Von Willebrand disease ([facility]) D68.0 Idiopathic cardiomyopathy ([facility]) I42.8 Acquired hypothyroidism E03.9 Oxygen dependent Z99.81 Moderate episode of recurrent major depressive disorder ([facility]) F33.1 Morbid obesity due to excess calories ([facility]) E66.01 Non compliance w medication regimen Z91.14 Chronic bilateral low back pain without sciatica M54.50, G89.29 Paroxysmal atrial fibrillation ([facility]) I48.0 Drug-seeking behavior Z76.5 History of multiple strokes Z86.73 Chronic diastolic CHF (congestive heart failure) ([facility]) I50.32 PTSD (post-traumatic stress disorder) F43.10 COPD, group D, by GOLD 2017 classification ([facility]) J44.9 Chronic hypoxemic respiratory failure (HCC) J96.11 History of narcotic addiction ([facility]) F11.21 Past Medical History: Diagnosis Date Back disorder Benign neoplasm of colon 10/06/10 adenomatous/repeat colonoscopy in 1 yr Chronic bilateral low back pain without sciatica 10/14/2020 COPD (chronic obstructive pulmonary disease) ([facility]) COPD, mild (HCC) 04/06/2007 COPD, severe ([facility]) 04/06/2007 Depressive disorder, not elsewhere classified Drug-seeking behavior 10/17/2020 Generalized osteoarthritis History of multiple strokes 10/17/2020 History of narcotic addiction ([facility]) 12/19/2021 Hyperplastic colonic polyp Hypothyroidism 04/16/2015 Malaise and fatigue Mixed dyslipidemia Moderate episode of recurrent major depressive disorder ([facility]) 03/05/2020 Morbid obesity due to excess calories ([facility]) 03/05/2020 Narcotic addiction ([facility]) 10/04/2014 Non compliance w medication regimen 10/14/2020 Oxygen dependent 12/29/2019 Paroxysmal atrial fibrillation ([facility]) 10/14/2020 Patent foramen ovale PTSD (post-traumatic stress disorder) 03/05/2021 Schizoaffective disorder, chronic condition ([facility]) followed Dr Robby Diego [facility] Sequelae, post-stroke CVA Status asthmaticus Von Willebrand's disease ([facility]) Past Surgical History: Procedure Laterality Date COLONOSCOPY, DIAGNOSTIC (RECTUM) 11/12/2020 large adenomatous polyp, repeat 6 mo / [facility] COLONOSCOPY, W/BIOPSY 10/06/2010 adenomatous/repeat colonoscopy in 1 yr COLONOSCOPY, W/BIOPSY 05/22/2013 hyperplastic polyp EGD, FLEXIBLE, DIAGNOSTIC 02/26/2015 retained food/[facility] EGD, FLEXIBLE, DIAGNOSTIC 11/12/2020 Gastric submucosal mass / [facility] EGD, FLEXIBLE, DIAGNOSTIC 11/06/2020 gastritis / [facility] EGD, FLEXIBLE, W/BIOPSY 05/19/2013 EGD, W/ENDOSCOPIC US 11/05/2011 UPPER GI ENDOSCOPY ENDOSCOPIC ULTRASOUND performed by BERENICE ASHBY at ENDOSCOPY [facility]; REPAIR INITIAL INGUINAL HERNIA REMOVE GALLBLADDER TOTAL HYSTERECTOMY and bso Family History Problem Relation Age of Onset Lung Disorder Mother copd Other (hepatitis) Mother Heart Disorder Father age 55 mu Mental Disorder Father schizophrenia Asthma Father Other (Other) Sister from sleep apnea Neurological Disorder Sister MR and epilepsy Other (Other) Son 2 sons von willebrand Other (Other) Daughter asd Social History Tobacco Use Smoking status: Former Smoker Packs/day: 0.25 Years: 32.00 Pack years: 8.00 Types: Cigarettes Quit date: 01/17/2015 Years since quittin.1 Smokeless tobacco: Never Used Tobacco comment: will only try with patches which are not covered by insurance Substance Use Topics Alcohol use: No Vaping/E-Cigarette Use Vaping/E-Cigarette Use Current Every Day User Vaping/E-Cigarette Substances Vaping/E-Cigarette Devices Medications Current Outpatient Medications Medication Sig Dispense Refill OXYGEN 4 L during the day as needed and at bedtime Disposable Brief X-Large Attends X-Large Super Absorb Underwear 32 Each 2 Vitamin D (Cholecalciferol) 25 MCG (1000 UT) Oral Capsule Take 1 Cap by mouth daily. 30 Cap 5 Nystatin [id number] UNIT/GM External Powder (Nyamyc) apply to affected area twice a day 15 g 1 LORazepam 0.5 MG Oral Tablet (Ativan) Take by mouth 1 Tablet as needed in the morning AND 1 Tablet as needed at noon AND 1 Tablet as needed in the evening for Anxiety. 90 Tablet 1 Mirtazapine 7.5 MG Oral Tablet (Remeron) Take by mouth 1 Tablet before bedtime. 30 Tablet 1 busPIRone HCl 10 MG Oral Tablet (Buspar) Take by mouth 1 Tablet in the morning AND 1 Tablet before bedtime. 60 Tablet 2 FLUoxetine HCl 20 MG Oral Capsule (PROzac) Take by mouth 1 Capsule in the morning. In addition to 40mg cap for a total of 60mg daily. (Patient taking differently: Take by mouth 20 mg daily . ) 30 Capsule 2 traZODone HCl 150 MG Oral Tablet (Desyrel) Take by mouth 150 mg before bedtime. busPIRone HCl 15 MG Oral Tablet (Buspar) [...] 5 traMADol HCl 100 MG Oral Tablet Take by mouth 100 mg every 8 hours as needed for Pain, Moderateor Pain, Severe. 90 Tablet 0 Trelegy Ellipta 100-62.5-25 MCG/INH Aerosol Powder Breath Activated (gfquindspwq-vzianaxjoocd-ptltnchbuu) Inhale by mouth 1 Puff in the [...] evening for Muscle spasms. 90 Tablet 3 No current facility-administered medications for this visit. Allergies Review of patient's allergies indicates: Allergen Reactions Aspirin Unknown von Willebrand's disease Salicylates von Willebrand's disease Review of Systems Negative for constitutional, heart, lung, liver, kidney, digestive, hematologic, neurologic, rheumatologic, or endocrine complaints except as per history of present illness and past medical history Physical Exam Temp 36.2 C (97.2 F) (Tympanic) General: This is a healthy appearing female who appears her stated age. The patient is alert and appropriately verbally conversant without hoarseness. On O2 via nasal cannula Face: The face was inspected and no cutaneous masses or lesions were visualized. There was no erythema or edema noted. Facial movement was symmetric without weakness. No skin lesions were detected. Eyes: Extra-ocular muscle function was intact. No nystagmus was observed. Pupils were equal. Ears: Examination of the ears revealed that the auricles were normally formed with no lesions. The right external auditory canal was WNL. The right TM was WNL. The right middle ear space was WNL. Theleft external auditory canal was WNL. The left TM was WNL. The left middle ear space was WNL Cranial Nerves: Cranial nerves grossly intact Nose: Examination of the nose revealed no masses, polyps, mucopus, or other lesion. The nasal septum was deviated to the left. The turbinates were WNL. Oral Cavity: Examination of the oral cavity revealed no mass lesions nor infection. The palate was noted to be intact without evidence of clefting. The tongue exhibited normal mobility. The palpated portion of the tongue base was soft. Mucosa was moist without lesion. The lips were free of lesion. Gums were free of inflammation. Dentition: Edentulous, Upper dentures not removed for exam (patient denies lesions beneath the dentures). and Lower dentures not removed for exam (patient denies lesions beneath the dentures). Oropharynx: The oral pharynx was free of mass lesion or mucosal abnormality. The palate was noted to be without lesion. The uvula was normal appearing with no deviation or lesions. The tonsils were unremarkable. Neck: Visualization and palpation of the neck revealed no mass lesions, no thyromegaly or thyroid masses. No skin lesions or inflammatory processes were detected. The cervical musculature was normal to palpation. The parotid and submandibular glands were normal to palpation. Lymphatics (cervical): There were no palpable lymph nodes in the posterior triangle, submandibular triangle, jugulodigastric region, or central neck. Lungs: Breathing quietly. No use of accessory muscles. Heart: Regular rate. No JVD. Assessment and Plan: Encounter Diagnoses Name Primary? Sensorineural hearing loss (SNHL) of both ears Yes Plan: Findings and recommendations were discussed with the patient. Pertinent provider notes, labs,and imaging were reviewed. Audio reviewed. I will have her repeat her audio in 6 months for her slight asymmetry Jazmine Whitehead PA-C 02/25/2022 9:16 AM documented in this encounter Nursing Notes * RANDI Khan - 02/25/2022 8:54 AM EDT Kimberly Kendall is a 61 year old female who presents today for ear problems. Patient reports Which ear: BOTH EARS How lon MONTHS TO A YEAR Pain: NO Pressure: NO Ringing: YES Drainage: NO Any treatment: NO Hearing loss: NO Any outside hearing aids/hearing test: NO Any history of ear surgeries: NO Pt denies of any pain. documented in this encounter Plan of Treatment Upcoming Encounters Date Type Specialty Care Team Description 02/25/2022 Office Visit Audiology Tresa Chappell Au.D. [address] [place] [address] Bilateral sensorineural hearing loss* 03/09/2022 Laboratory [place] [facility] [place] [facility] [address] [facility] [place] [address] 03/10/2022 [facility] [address] [facility] [place] [address] 03/16/2022 Imaging Radiology 03/24/2022 PulmDiagnostic Pulmonary Function [place], [address] [place] [address] 05/07/2022 PulmDiagnostic Pulmonary Function [place], [address] [place] [address] 08/21/2022 Office Visit Pulmonary Jesus Bonilla MD [address] [place] [address] 09/02/2022 Office Visit Otolaryngology Jazmine Whitehead PA-C [facility] [place] [address] Scheduled Procedures Name Priority Associated Diagnoses Date/Ti [...] COMPLETED IN PAST YEAR FOR COPD 02/13/2023 02/13/2022 DIABETES SCREEN EVERY 3 YRS-AGE 45 AND ABOVE 01/15/2025 01/15/2022, 01/08/2022, 01/03/2022, Additional history exists Pneumococcal Vaccine: Pediatrics (0 to 5 Years) and At-Risk Patients (6 to 64 Years) (2 of 2 - PPSV23) 2025 03/20/2009 COLONOSCOPY-EVERY 5 YRS AGES 18-100 11/12/2025 11/12/2020, 05/22/2013, 08/21/2011, Additional history exists Influenza Vaccine (FLU shot) Completed , 11/11/2021, 09/15/2020, Additional history exists GARDASIL-HPV IMMUNIZATION SERIES Aged Out No longer eligible based on patient's age to complete this topic MENINGOCOCCAL (MENACTRA/MENVEO) Aged Out No longer eligible based on patient's age to complete this topic documented as of this encounter Implants Not on filedocumented as of this encounter Visit Diagnoses Diagnosis Sensorineural hearing loss (SNHL) of both ears- Primary Bilateral sensorineural hearing loss- Primary Sensorineural hearing loss, bilateral documented in this encounter Advance Directives Documents on File Type Date Recorded Patient Watch Supervisor Expl 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 Advanced Directive 11/02/2011 12:00 AM Care Teams Spa Experience Coordinator Relationship Specialty Start Date End Date Roger Alexandra MD [address] [place] [address] PCP - General Family Medicine 12/29/19 documented as of this encounter
--- OUTSIDE RECORDS SUMMARY | 2023-07-25 04:40 | External Medical Summary ---
Author Name Unknown Address Unknown Organization [facility] [address] [place] [address] Laboratory Report Ordering Provider Test Date Status SUMAN STANFORD 03/09/2022 11:02:00 Final Observation Date Value Abnormality Reference (Units ) Status PT 03/09/2022 11:02:00 19.4 Above high normal 11 .5-14.6 (seconds) Final INR 03/09/2022 11:02:00 1.62 Above high normal 0. 84-1.14 Final Performing Location [facility] [place] [address] [place] [address]
--- OUTSIDE RECORDS SUMMARY | 2023-07-25 04:40 | External Medical Summary | Summary of Care ---
Author Name Unknown Organization [facility] Address [place] [address] Care Team Providers Care Strapping Machine Tender Name Role Phone Roger Alexandra MD Primary Care Provider [phone] Reason for Visit * Reason Comments Dosage Adjustment Via Phone (anticoag Cl inic) Encounter Details Date Type Department Care Team Description 03/10/2022 Anticoagulation Pharmacy Call Center [address] [facility] [place] [address] Telepharmacy, [facility] [address] [place] [address] Anticoagulation management encounter* Allergies Active Allergy Reactions Severity Noted Date Comments Aspirin Unknown 12/12/2007 von Willebrand's disease Salicylates 03/01/2000 von Willebrand's disease documented as of this encounter (statuses as of 03/10/2022) Medications Medication Sig Dispensed Refills Start Date End Date Status OXYGEN 4 L during the day as needed and at bedtime 0 02/14/2015 Active Disposable Brief X-LargeIndications:O veractive bladder Attends X-Large Super Absorb Underwear 32 Each 2 03/18/2021 Active Vitamin D (Cholecalciferol) 25 MCG (1000 UT) Oral Capsule Take 1 Cap by mouth daily. 30 Cap 5 05/05/2021 Active Nystatin 695498 UNIT/GM External Powder (Nyamyc) apply to affected [...] before bedtime. 30 Tablet 2 02/26/2022 Active documented as of this encounter (statuses as of 03/10/2022) Active Problems Problem Noted Date History of [...] as of this encounter (statuses as of 03/10/2022) Resolved Problems Problem Noted Date Resolved Date [...] as of this encounter (statuses as of 03/10/2022) Immunizations Name Administration Dates Next Due H1N1 [...] this encounter Progress Notes * Luis Nava, [facility] - 03/10/2022 10:25 AM EDT Contacts Type Contact Phone 03/10/2022 10:22 AM EDT Phone (Outgoing) Kimberly Kendall (Self) [phone] (M) Patient Findings Negatives: Signs/symptoms of thrombosis, [...] date communicated as noted by Pharmacist: Yes Luis Nava CPhT 03/10/2022, 10:25 AM * Piedad Craft RPh - 03/10/2022 9:30 AM EDT Images from the original note were not included. Coumadin Clinic (region specific) Current Warfarin Dose As of 03/10/2022 Warfarin maintenance plan: 5 mg (5 mg x 1) every day INR Result As of 03/10/2022 INR goal: 2.0-3.0 INR used for dosin.62 (03/09/2022) Warfarin Plan As of 03/10/2022 Full warfarin instructions: 03/10: 10 mg; Otherwise 5 mg every day Next INR check: 03/30/2022 Repeat PT/INR in 3 week(s) Weekly dose: not changed Additional Dosing Information: Description GML Tech to contact patient with dose instructions as noted. Piedad Craft RPh 03/10/2022, 9:30 AM documented in this encounter Plan of Treatment Upcoming Encounters Date Type Specialty Care Team Description 03/16/2022 Imaging Radiology 03/24/2022 PulmDiagnostic Pulmonary Function [place], [address] [facility] [place] [address] 03/30/2022 Telemedicine Psychiatry Hugo Alcantara MD [address] [facility] [place] [address] 03/31/2022 [facility] [address] [facility] [place] [address] 05/07/2022 PulmDiagnostic Pulmonary Function [place], [address] [place] [address] 08/21/2022 Office Visit Pulmonary Jesus Bonilla MD [address] [place] [address] 09/02/2022 Office Visit Otolaryngology Jazmine Whitehead PA-C [address] [place] [address] Scheduled Procedures Name Priority Associated Diagnoses Date/Ti [...] Documents on File Type Date Recorded Patient Daytime Babysitter Expl 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 Advanced Directive 11/02/2011 12:00 AM Care Teams Strapping Machine Tender Relationship Specialty Start Date End Date Roger Alexandra MD [address] [place] [address] [place] [address] PCP - General Family Medicine 12/29/19 documented as of this encounter
--- OUTSIDE RECORDS SUMMARY | 2023-07-25 04:40 | External Medical Summary | Summary of Care ---
Author Name Unknown Organization [place] [address] Care Team Providers Care Offset Second Press Operator Name Role Phone Roger Alexandra MD Primary Care Provider [phone] [phone] Reason for Referral * Evaluate & Treat - Unlimited Visits (Within 30 days (routine)) - Authorized Specialty Diagnoses / Procedures Referred By Contlakia t Referred To Contact Psychiatry / Psychology Diagnoses SIMA (generalized anxiety disorder) Hugo Alcantara MD [address] [place] [address] Referral ID Status Reason Start Date Expiration Date Visits Requested Visits Authorized [id number] Authorized Specialty Services Required 02/26/2022 1 1 Question Answer Referral Priority Within 30 days (routine) Is this referral intended for a [facility] provider? Yes - Dr Drake Is the patient a child/adolescent who has not yet graduated from high school? No Assess for Dementia Has the patient been seen recently in any of the following depts Psychiatry Encounter Details Date Type Department Care Team Description 02/26/2022 Telemedicine Psychiatry, [address] [place] [address] Hugo Alcatnara MD [address] [place] [address] SIMA (generalized anxiety disorder)* Allergies Active Allergy Reactions Severity Noted Date Comments Aspirin Unknown 12/12/2007 von Willebrand's disease Salicylates 03/01/2000 von Willebrand's disease documented as of this encounter (statuses as of 02/26/2022) Medications Medication Sig Dispensed Refills Start Date End Date Status OXYGEN 4 L during the day as needed and at bedtime 0 5 Active Disposable Brief X-LargeIndications :Overactive bladder Attends X-Large Super Absorb Underwear 32 Each 2 1 Active Vitamin D (Cholecalciferol) 25 MCG (1000 UT) Oral Capsule Take 1 Cap by mouth daily. 30 Cap 5 1 Active Nystatin 366287 UNIT/GM External Powder (Nyamyc) apply to affected area twice a day 15 g 1 1 Active busPIRone HCl 10 MG Oral Tablet (Buspar) Take by mouth 1 Tablet in the morning AND 1 Tablet before bedtime. 60 Tablet 2 2 Active busPIRone HCl 15 MG Oral Tablet (Buspar)Indication [...] Pain, Severe. 90 Tablet 0 2 Active Trelegy Ellipta 100-62.5-25 MCG/INH [...] Anxiety. 90 Tablet 1 2 Active Mirtazapine 15 MG Oral Tablet (Remeron) Take by mouth 1 Tablet before bedtime. 30 Tablet 2 2 Active LORazepam 0.5 MG Oral Tablet (Ativan) Take by mouth 1 Tablet as needed in the morning AND 1 Tablet as needed at noon AND 1 Tablet as needed in the evening for Anxiety. 90 Tablet 1 2 02/27/20 22 Discontinued(Ref ill) Mirtazapine 7.5 MG Oral Tablet (Remeron) Take by mouth 1 Tablet before bedtime. 30 Tablet 1 2 02/27/20 22 Discontinued FLUoxetine HCl 20 MG Oral Capsule (PROzac) Take by mouth 1 Capsule in the morning. In addition to 40mg cap for a total of 60mg daily. 30 Capsule 2 2 02/27/20 22 Discontinued traZODone HCl 150 MG Oral Tablet (Desyrel) Take by mouth 150 mg before bedtime. 0 2 02/27/20 22 Discontinued documented as of this encounter (statuses as of 02/26/2022) Active Problems Problem Noted Date History of [...] as of this encounter (statuses as of 02/26/2022) Resolved Problems Problem Noted Date Resolved Date [...] as of this encounter (statuses as of 02/26/2022) Immunizations Name Administration Dates Next Due H1N1 [...] Progress Notes * Hugo Alcantara MD - 02/26/2022 12:00 PM EDT After connecting through televideo, patient was verified with two unique identifiers. Patient (or authorized legal field support representative) was then informed that this was a Telemedicine visit and being conducted confidentially over secure lines. Methods to assure confidentiality were taken. Patient acknowledged consent and understanding of privacy and security of the Telemedicine visit. The patient agreed to participate. PSYCHOTHERAPY & MEDICATION MANAGEMENT RETURN VISIT NOTE Psychiatry, Zaheer Gordon [address] [facility] [address] 08/18/2021 Kimberly Kendall CHIEF COMPLAINT: medication management INTERVAL HISTORY: she states she's been ok. Has been in and out of the hospital recently. Inquires about the dx of dementia from strokes (states she was diagnosed with this while in the hospital). States she is having memory problems. Mentions that she can't tell you any details of what happened last week. No problems with forgetting people/faces. Is oriented to person and place. Reports date as "sometime in February-- the first week". [...] asleep. Reports appetite as "ok I guess". OBJECTIVE DATA: COLUMBIA-SUICIDE SEVERITY RATING SCALE Have [...] PAST PSYCHIATRIC, MEDICAL, FAMILY OR SOCIAL HX: multiple hospitalizations; most recent: dc'ed from [facility] on 01/17/22; dc summary reviewed CURRENT MEDS: Current Outpatient Medications Medication Sig Dispense Refill OXYGEN 4 L during the day as needed and at bedtime Disposable Brief X-Large Attends X-Large Super Absorb Underwear 32 Each 2 Vitamin D (Cholecalciferol) 25 MCG (1000 UT) Oral Capsule Take 1 Cap by mouth daily. 30 Cap 5 Nystatin 763783 UNIT/GM External Powder (Nyamyc) apply to affected [...] Ellipta 100-62.5-25 MCG/INH Aerosol Powder Breath Activated (cgybjnopklo-ypwovbkrgrkr-voakbubgex) Inhale by mouth 1 Puff in the [...] and volume Mood: anxious Affect: type - dysphoric; range - full [...] fair Judgment: fair FORMULATION: Kimberly Kendall is [id number] old female with presenting symptoms ofdepression, anxiety, [...] Monitoring Program in compliance with the [facility] regulations before prescribing a controlled substance. -- dc trazodone as it worsened nightmares (appears this was restarted while IP) -- increase Remeron to 15mg nightly for sleep/anxiety/depression -- dc Prozac d/t lack of positive effect -- cont Ativan 0.5mg TID -- cont Buspar 10mg BID (asked to clarify what dose she current has) -- recommend therapy; referral previously placed -- [...] Encounters Date Type Specialty Care Team Description 03/09/2022 Laboratory Laboratory Processing [facility], [facility] Home Draw [address] [place] [address] 03/10/2022 Anticoagulation Pharmacy Telepharmacy, [facility] [address] [place] [address] 03/16/2022 Imaging Radiology 03/24/2022 PulmDiagnostic Pulmonary Function [place], [address] [facility] [place] [address] 05/07/2022 PulmDiagnostic Pulmonary Function [place], [address] [place] [address] 08/21/2022 Office Visit Pulmonary Jesus Bonilla MD [address] [place] [address] 09/02/2022 Office Visit Otolaryngology Jazmine Whitehead PA-C [address] [place] [address] Scheduled Procedures Name Priority Associated Diagnoses Date/Ti [...] Documents on File Type Date Recorded Patient Fountain Supervisor Expl 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 Advanced Directive 11/02/2011 12:00 AM Care Teams Offset Second Press Operator Relationship Specialty Start Date End Date Roger Alexandra MD [address] [facility] [place] [address] PCP - General Family Medicine 12/29/19 documented as of this encounter
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
--- OUTSIDE RECORDS SUMMARY | 2023-07-25 04:40 | External Medical Summary | Summary of Care ---
Author Name Unknown Organization [place] [address] Care Team Providers Care Meat Dresser Name Role Phone Roger Alexandra MD Primary Care Provider [phone] Encounter Details Date Type Department Care Team Description 02/25/2022 Office Visit [facility] [address] [facility] [address] Tresa Chappell Au.D. [address] [place] [address] Bilateral sensorineural hearing loss* Allergies Active Allergy Reactions Severity Noted Date [...] daily. 30 Cap 5 05/05/2021 Active Nystatin 278157 UNIT/GM External Powder (Nyamyc) apply to affected [...] as of this encounter Progress Notes * Serafin Lizarraga - 02/25/2022 9:59 AM EDT Images from the original note were not included. Audiologic evaluation was completed on referral from Otolaryngology clinic. Standard audiometric testing 52789 ABSD supra-aural earphones Good reliability Right:a mild sloping down to a severe sensorineural hearing loss Left:a mild sloping down to a severe sensorineural hearing loss Speech recognition thresholds were consistent with hearing thresholds. Word recognition scores, obtained via recorded material were: right 84%, left 96% Serafin Weinstein Aerial Crop Duster 02/25/2022 9:59 AM Scan: audiogram documented in this encounter Plan of Treatment Upcoming Encounters Date Type Specialty Care Team Description 03/09/2022 Laboratory Laboratory Processing [facility] Mobile Home Draw [address] [place] [address] 03/10/2022 [facility] [address] [place] [address] 03/16/2022 Imaging Radiology 03/24/2022 PulmDiagnostic Pulmonary Function [place], Pft [address] [facility] [place] [address] 05/07/2022 PulmDiagnostic Pulmonary Function [place], Pft [address] [facility] [place] [address] 08/21/2022 Office Visit Pulmonary Jesus Bonilla MD [address] [place] [address] 09/02/2022 Office Visit Otolaryngology aJzmine Whitehead PA-C [address] [facility] [place] [address] Scheduled Procedures Name Priority Associated Diagnoses Date/Ti [...] Procedure Name Priority Date/Time Associated Diagnosis Comments AUDIOMETRIC RESULT 02/25/2022 documented in this encounter Results * AUDIOMETRIC RESULT (02/25/2022) Specimen Narrative documented in this encounter Visit Diagnoses Diagnosis Bilateral sensorineural hearing loss- Primary Sensorineural hearing loss, bilateral documented in this encounter Advance Directives Documents on File Type Date Recorded Patient Musical Instrument Maker Expl 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 Advanced Directive 11/02/2011 12:00 AM Care Teams Meat Dresser Relationship Specialty Start Date End Date Roger Alexandra MD [address] [place] [address] [place] [address] PCP - General Family Medicine 12/29/19 documented as of this encounter
--- OUTSIDE RECORDS SUMMARY | 2023-07-25 04:40 | External Medical Summary | Summary of Care ---
Author Name Unknown Organization [place] [address] Care Team Providers Care Thermodynamics Engineer Name Role Phone Roger Alexandra MD Primary Care Provider [phone] Reason for Visit * Reason Onset Date Comments Medication Refill 02/24/2022 Medication Refill 02/25/2022 Encounter Details Date Type Department Care Team Description 02/24/2022 Refill Psychiatry, [facility] [address] [place] [address] Hugo Alcantara MD [address] [place] [address] Allergies Active Allergy Reactions Severity [...] daily. 30 Cap 5 05/05/2021 Active Nystatin 987396 UNIT/GM External Powder (Nyamyc) apply to affected [...] encounter Miscellaneous Notes * Telephone Encounter - Jacqui Sharma CPhT - 02/25/2022 5:01 PM EDT pt calling to check on status of Lorazepam refill , advised patient refused and APPT is needed she will call back on to schedule Thanks, Jacqui Sharma Risk Control Consultant II Pharmacy Refill Call Center 25:02 PM * Telephone Encounter - Rosalina James LPN - 02/24/2022 1:08 PM EDT Refused Prescriptions: Disp Refills LORazepam 0.5 MG Oral Tablet (Ativan) 90 Tab*1 Sig: Take by mouth 1 Tablet as needed in the morning AND 1 Tablet as needed at noon AND 1 Tablet as needed in the evening for Anxiety. Refused By: ROSALINA JAMES Reason for Refusal: Appt. Required, please call patient --------- * Telephone Encounter - Rosalina James LPN - 02/24/2022 1:08 PM EDT Needs appointment. * Telephone Encounter - Oliverio Aguirre V imcu specialist - 02/24/2022 12:54 PM EDT Pending Prescriptions: Disp Refills LORazepam 0.5 MG Oral Tablet (Ativan) 90 Tab*1 Sig: Take by mouth 1 Tablet as needed in the morning AND 1 Tablet as needed at noon AND 1 Tablet as needed in the evening for Anxiety. Visit date not found (in office), 12/17/2021 (telemedicine) Visit date not found If no future appointments scheduled, and last appointment is greater than a year ago, please schedule patient for a follow-up appointment Last date the medication was ordered: 12/15/2021 Pharmacy: [id number] [address] [facility] Is this request for a controlled substance?Yes and Urine Drug Screen completed Urine Drug Screen: Results for orders [...] Care Team Description 03/09/2022 Laboratory Laboratory Processing [facility] [address] [facility] [address] 03/10/2022 [facility] [address] [place] [address] 03/16/2022 Imaging Radiology 03/24/2022 PulmDiagnostic Pulmonary Function [place], [address] [place] [address] 05/07/2022 PulmDiagnostic Pulmonary Function [place], [address] [place] [address] 08/21/2022 Office Visit Pulmonary Jeuss Bonilla MD [address] [place] [address] 09/02/2022 Office Visit Otolaryngology Jazmine Whitehead PA-C [address] [place] [address] Scheduled Procedures Name Priority Associated Diagnoses Date/Ti [...] Documents on File Type Date Recorded Patient Genetic Coordinator Expl 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 Advanced Directive 11/02/2011 12:00 AM Care Teams Thermodynamics Engineer Relationship Specialty Start Date End Date Roger Alexandra MD [address] [facility] [place] [address] PCP - General Family Medicine 12/29/19 documented as of this encounter
--- OUTSIDE RECORDS SUMMARY | 2023-07-25 04:40 | External Medical Summary | Summary of Care ---
Author Name Unknown Organization [place] [address] Care Team Providers Care Electronic Commerce Specialist Name Role Phone Roger Alexandra MD Primary Care Provider [phone] Reason for Visit * Reason Comments Oxygen Assessment 3 minute walk with t itration Encounter Details Date Type Department Care Team Description 03/24/2022 PulmDiagnostic Pulmonary Function Lab, [facility] [address] [place] [address] [place], [address] [facility] [place] [address] Chronic hypoxemic respiratory failure (HCC)*; COPD, group [...] daily. 30 Cap 5 05/05/2021 Active Nystatin 181029 UNIT/GM External Powder (Nyamyc) apply to affected [...] [facility], [facility] Mobile Home Draw [address] [place] [address] 03/30/2022 Telemedicine Psychiatry Hugo Alcantara MD [address] [place], [place] [address] 03/31/2022 [facility] [address] [place] [address] 05/07/2022 PulmDiagnostic Pulmonary Function [place], Pft [address] [facility] [place] [address] 08/21/2022 Office Visit Pulmonary Jesus Bonilla MD [address] [place] [address] 09/02/2022 Office Visit Otolaryngology Jazmine Whitehead PA-C [...] exists LUNG CANCER SCREENING - USE SMARTSET 88188 Completed 03/16/2022 GARDASIL-HPV IMMUNIZATION SERIES Aged Out [...] Documents on File Type Date Recorded Patient Valet Manager Expl 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 Advanced Directive 11/02/2011 12:00 AM Care Teams Electronic Commerce Specialist Relationship Specialty Start Date End Date Roger Alexandra MD [address] [place] [address] PCP - General Family Medicine 12/29/19 documented as of this encounter
--- OUTSIDE RECORDS SUMMARY | 2023-07-25 04:40 | External Medical Summary | Summary of Care ---
Author Name Unknown Organization [place] [address] Care Team Providers Care Electronic Industrial Controls Mechanic Name Role Phone Jeevan Mclean MD Primary Care Provider [phone] Reason for Visit * Reason Onset Date Comments Medication Refill 03/09/2022 Encounter Details Date Type Department Care Team Description 03/09/2022 Refill Family Practice [facility] [address] [place] [address] Jeevan Mclean MD [address] [facility] [place] [address] Chronic bilateral low back pain without sciatica [...] daily. 30 Cap 5 05/05/2021 Active Nystatin 720873 UNIT/GM External Powder (Nyamyc) apply to affected area twice a day 15 g 1 11/04/2021 Active busPIRone HCl 10 MG Oral Tablet (Buspar) Take by mouth 1 Tablet in the morning AND 1 Tablet before bedtime. 60 Tablet 2 01/05/2022 Active busPIRone HCl 15 MG Oral Tablet (Buspar)Indications :Take in the morning Take by mouth 15 [...] ndications:COPD, group D, by GOLD 2017 classification ([facility]) Inhale by mouth 1 Puff [...] 02/26/2022 Active traMADol HCl 100 MG Oral TabletIndications:C hronic bilateral low back pain without sciatica Take by mouth 100 mg every 8 hours as needed for Pain, Moderate or Pain, Severe. 90 Tablet 0 03/10/2022 Active traMADol HCl 100 MG Oral TabletIndications:C hronic bilateral low back pain without sciatica Take by mouth 100 mg every 8 hours as needed for Pain, Moderate or Pain, Severe. 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 Authorizing Provider: JEEVAN MCLEAN * Telephone Encounter - Ewa Chu [facility] - 03/10/2022 1:27 PM EDT Pending Prescriptions: Disp Refills traMADol HCl 100 MG Oral Tablet 90 Tab*0 Sig: Take by mouth 100 mg every 8 hours as needed for Pain, Moderate or Pain, Severe. * Telephone Encounter - Ewa Chu [facility] - 03/10/2022 1:27 PM EDT I have reviewed the patients controlled substance dispensing history in the Prescription Drug Monitoring Program in compliance with the [facility] regulations before prescribing a controlled substance. PDMP checked on 03/10/2022. Pending Prescriptions: Disp Refills traMADol HCl 100 MG Oral Tablet 90 Tab*0 Sig: Take by mouth 100 mg every 8 hours as needed for Pain, Moderate or Pain, Severe. Last Visit: 01/23/2022 (in office), 03/14/2021 (telemedicine) Next Visit: Visit date not found Date medication was last filled: 02/10/22 Date medication is due for refill: 03/12/22 Pharmacy: [id number] [place] [address] Is this request for a controlled substance?Yes and Urine Drug Screen not completed Toxicology results: Results for orders placed [...] Results Review. Please approve if appropriate. Thank You, Ewa Chu [facility] Pharmacist Telepharmacy [phone] 03/10/2022, 1:27 PM * Telephone Encounter - DANIEL Handy Tech - 03/09/2022 3:32 PM EDT Pending Prescriptions: Disp Refills traMADol [...] appointment Last date the medication was ordered: 02/09/2022 Pharmacy: [id number] Is this request for a controlled substance?Yes and Urine Drug Screen not completed Urine Drug Screen: Results for orders [...] 03/16/2022 Imaging Radiology 03/24/2022 PulmDiagnostic Pulmonary Function [place] [address] [place] [address] 03/30/2022 Telemedicine Psychiatry Hugo Alcantara MD [address] [place] [address] 03/31/2022 [facility] [address] [facility] [place] [address] 05/07/2022 PulmDiagnostic Pulmonary Function Nahid Pft [address] [place] [address] 08/21/2022 Office Visit Pulmonary Jesus Bonilla MD [address] [place] [phone] 09/02/2022 Office Visit Otolaryngology Jazmine Whitehead PA-C [address] [place] [address] (work) Scheduled Procedures Name Priority Associated Diagnoses Date/Ti [...] Documents on File Type Date Recorded Patient Lead Systems Analyst Expl 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 Directive 11/02/2011 12:00 AM Care Teams Electronic Industrial Controls Mechanic Relationship Specialty Start Date End Date Jeevan Mclean MD [address] [facility] [place] [address] PCP - General Family Medicine 12/29/19 documented as of this encounter
--- OUTSIDE RECORDS SUMMARY | 2023-07-25 04:40 | External Medical Summary | Summary of Care ---
Author Name Unknown Organization [place] [address] Care Team Providers Care Offset Printer Name Role Phone Roger Alexandra MD Primary Care Provider [phone] [phone] Reason for Visit * Reason Onset Date Comments Test Results Imaging Study 03/20/2022 CT Ch est Encounter Details Date Type Department Care Team Description 03/20/2022 Telephone Pulmonary Medicine, [facility] [address] [place] [address] Jesus [facility]illa [facility] [address] [facility] [address] Test Results Imaging Study (CT Chest) Allergies Active Allergy Reactions Severity Noted Date Comments Aspirin Unknown 12/12/2007 von Willebrand's disease Salicylates 03/01/2000 von Willebrand's disease documented as of this encounter (statuses as of 03/20/2022) Medications Medication Sig Dispensed Refills Start Date End Date Status OXYGEN 4 L during the day as needed and at bedtime 0 02/14/2015 Active Disposable Brief X-LargeIndications:O veractive bladder Attends X-Large Super Absorb Underwear 32 Each 2 03/18/2021 Active Vitamin D (Cholecalciferol) 25 MCG (1000 UT) Oral Capsule Take 1 Cap by mouth daily. 30 Cap 5 05/05/2021 Active Nystatin 256910 UNIT/GM External Powder (Nyamyc) apply to affected [...] as of this encounter (statuses as of 03/20/2022) Active Problems Problem Noted Date History of [...] as of this encounter (statuses as of 03/20/2022) Resolved Problems Problem Noted Date Resolved Date [...] as of this encounter (statuses as of 03/20/2022) Immunizations Name Administration Dates Next Due H1N1 [...] Telephone Encounter - Airam Ramey LPN - 03/20/2022 12:[address] Bonilla's message relayed to the pt, who verbalized understanding. * Telephone Encounter - Jesus Bonilla MD - 03/20/2022 12:28 PM EDT Please let the patient know that her CT scan does not show evidence of COVID 19 pneumonia changes. It does show changes of COPD, otherwise is unremarkable. documented in this encounter Plan of Treatment Upcoming Encounters Date Type Specialty Care Team Description 03/24/2022 PulmDiagnostic Pulmonary Function [place], [facility] [address] [facility] [place] [address] 03/30/2022 Laboratory Laboratory Processing [facility] [place], [facility] Mobile Home Draw [address] [place] [address] 03/30/2022 Telemedicine Psychiatry Hugo Alcantara MD [address] [place] [address] 03/31/2022 Anticoagulation Pharmacy Telepharmacy, [facility] [address] [facility] [address] 05/07/2022 PulmDiagnostic Pulmonary Function [place], [facility]ft [address] [place] [address] 08/21/2022 Office Visit Pulmonary Jesus Bonilla MD [address] [place] [address] 09/02/2022 Office Visit Otolaryngology Jazmine Whitehead PA-C [address] [place] [address] Scheduled Procedures Name Priority Associated Diagnoses Date/Ti [...] Documents on File Type Date Recorded Patient Form Stripper Expl 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 Directive 11/02/2011 12:00 AM Care Teams Offset Printer Relationship Specialty Start Date End Date Roger Alexandra MD 132 [facility] [place] [address] PCP - General Family Medicine 12/29/19 documented as of this encounter
--- OUTSIDE RECORDS SUMMARY | 2023-07-25 04:41 | External Medical Summary | Summary of Care ---
Author Name Unknown Organization [place] [address] Care Team Providers Care Fiberglass Container Winding Operator Name Role Phone Roger Alexandra MD Primary Care Provider [phone] Reason for Visit * Reason Onset Date Comments Medication Refill 02/24/2022 Encounter Details Date Type Department Care Team Description 02/24/2022 Refill Psychiatry, [facility] [address] [place] [address] Hugo Alcantara MD [address] [place], [place] [id number] Allergies Active Allergy Reactions Severity Noted Date Comments Aspirin Unknown 12/12/2007 von Willebrand's disease Salicylates 03/01/2000 von Willebrand's disease documented as of this encounter (statuses as of 02/24/2022) Medications Medication Sig Dispensed Refills Start Date End Date Status OXYGEN 4 L during the day as needed and at bedtime 0 02/14/2015 Active Disposable Brief X-LargeIndications:O veractive bladder Attends X-Large Super Absorb Underwear 32 Each 2 03/18/2021 Active Vitamin D (Cholecalciferol) 25 MCG (1000 UT) Oral Capsule Take 1 Cap by mouth daily. 30 Cap 5 05/05/2021 Active Nystatin 653737 UNIT/GM External Powder (Nyamyc) apply to affected [...] as of this encounter (statuses as of 02/24/2022) Active Problems Problem Noted Date History of [...] as of this encounter (statuses as of 02/24/2022) Resolved Problems Problem Noted Date Resolved Date [...] as of this encounter (statuses as of 02/24/2022) Immunizations Name Administration Dates Next Due H1N1 [...] encounter Miscellaneous Notes * Telephone Encounter - Rosalina James LPN [...] * Telephone Encounter - Oliverio Aguirre V electric track switch maintainer - 02/24/2022 12:54 PM EDT Pending Prescriptions: [...] medication was ordered: 12/15/2021 [facility]: [id number] [place] [address] Is this request for a controlled substance?Yes [...] Specialty Care Team Description 02/25/2022 Office Visit Otolaryngology Jazmine Whitehead PA-C [address] [facility] [place] [address] 03/09/2022 Laboratory Laboratory Processing [facility] [place] [facility] Mobile Home Draw [address] [place] [address] 03/10/2022 [facility] [address] [facility] [place] [address] 03/16/2022 Imaging Radiology 03/24/2022 PulmDiagnostic Pulmonary Function [place], Pft [address] [facility] [place] [address] 05/07/2022 PulmDiagnostic Pulmonary Function [place], Pft [address] [facility] [address] [place] [address] 08/21/2022 Office Visit Pulmonary Jesus Bonilla MD [address] [place] [address] Scheduled Procedures Name Priority Associated Diagnoses Date/Ti [...] Documents on File Type Date Recorded Patient Building Serviceman Expl 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 Advanced Directive 11/02/2011 12:00 AM Care Teams Fiberglass Container Winding Operator Relationship Specialty Start Date End Date Roger Alexandra MD [address] [place] [address] [place] [address] PCP - General Family Medicine 12/29/19 documented as of this encounter
--- OUTSIDE RECORDS SUMMARY | 2023-07-25 04:41 | External Medical Summary | Summary of Care ---
Author Name Unknown Organization [place] [address] Care Team Providers Care Nursing Admin Name Role Phone Jeevan Mclean MD Primary Care Provider [phone] Reason for Visit * Reason Onset Date Comments Medication Refill 02/16/2022 Encounter Details Date Type Department Care Team Description 02/16/2022 Refill Pharmacy Call Center [address] [facility] [place] [address] Jeevan Mclean MD [address] [place] [address] Paroxysmal atrial fibrillation (HCC) Allergies Active Allergy Reactions Severity Noted Date Comments Aspirin Unknown 12/12/2007 von Willebrand's disease Salicylates 03/01/2000 von Willebrand's disease documented as of this encounter (statuses as of 02/16/2022) Medications Medication Sig Dispensed Refills Start Date End Date Status OXYGEN 4 L during the day as needed and at bedtime 0 5 Active Disposable Brief X-LargeIndications: Overactive bladder Attends X-Large Super Absorb Underwear 32 Each 2 1 Active Vitamin D (Cholecalciferol) 25 MCG (1000 UT) Oral Capsule Take 1 Cap by mouth daily. 30 Cap 5 1 Active Nystatin 435725 UNIT/GM External Powder (Nyamyc) apply to affected area twice a day 15 g 1 1 Active LORazepam 0.5 MG Oral Tablet (Ativan) Take by mouth 1 Tablet as needed in the morning AND 1 Tablet as needed at noon AND 1 Tablet as needed in the evening for Anxiety. 90 Tablet 1 2 Active Mirtazapine 7.5 MG Oral Tablet (Remeron) Take by mouth 1 Tablet before bedtime. 30 Tablet 1 2 Active busPIRone HCl 10 MG Oral Tablet (Buspar) Take by mouth 1 Tablet in the morning AND 1 Tablet before bedtime. 60 Tablet 2 2 Active FLUoxetine HCl 20 MG Oral Capsule (PROzac) Take by mouth 1 Capsule in the morning. In addition to 40mg cap for a total of 60mg daily. 30 Capsule 2 2 Active Additional Information Patient taking differently: 20 mg Oral DAILY, (No instructions reported), Reported on 01/21/2022 traZODone HCl 150 MG Oral Tablet (Desyrel) Take by mouth 150 mg before bedtime. 0 2 Active busPIRone HCl 15 MG Oral [...] Muscle spasms. 90 Tablet 3 2 Active Warfarin Sodium 5 MG Oral Tablet (Coumadin)Indicatio ns:Paroxysmal atrial fibrillation (HCC) Take by mouth 1 Tablet in the evening. OR As directed by coumadin clinic. 90 Tablet 3 2 02/17/20 22 Discontinu ed(Refill) Baclofen 10 MG Oral Tablet (Lioresal) Take by mouth 1 Tablet as needed in the morning AND 1 Tablet as needed at noon AND 1 Tablet as needed in the evening for Muscle spasms. 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 OR As directed by coumadin clinic. Authorizing Provider: JEEVAN MCLEAN Baclofen 10 MG Oral Tablet (Lioresal) 90 Tab*3 Sig: Take by mouth 1 Tablet as needed in the morning AND 1 Tablet as needed at noon AND 1 Tablet as needed in the evening for Muscle spasms. Authorizing Provider: JEEVAN MCLEAN * Telephone Encounter - Kim De Guzman LPN - 02/16/2022 12:54 PM EDT Pending Prescriptions: Disp Refills Warfarin Sodium 5 MG Oral Tablet (Coumadi*90 Tab*3 Sig: Take by mouth 1 Tablet in the evening. OR As directed by coumadin clinic. Baclofen 10 MG Oral Tablet (Lioresal) 90 Tab*3 Sig: Take by mouth 1 Tablet as needed in the morning AND 1 Tablet as needed at noon AND 1 Tablet as needed in the evening for M uscle spasms. * Telephone Encounter - Kim De Guzman LPN - 02/16/2022 12:53 PM EDT Pending Prescriptions: Disp Refills Warfarin Sodium 5 MG Oral Tablet (Coumadi*90 Tab*3 Sig: Take by mouth 1 Tablet in the evening. OR As directed by coumadin clinic. Baclofen 10 MG Oral Tablet (Lioresal) 90 Tab*3 Sig: Take by mouth 1 Tablet as needed in the morning AND 1 Tablet as needed at noon AND 1 Tablet as needed in the evening for Muscle spasms. Last Visit: Visit date not found (in office), Visit date not found (telemedicine) Next Visit: 02/17/2022 If no future appointments scheduled, and last appointment is greater than a year ago, please schedule patient for a follow-up appointment Last date the medication was ordered: Pharmacy: [id number] Is this request for a controlled [...] Encounters Date Type Specialty Care Team Description 02/17/2022 Anticoagulation Pharmacy Telepharmacy, [facility] 58 60 [facility] [place] [address] 02/25/2022 Office Visit Otolaryngology Jazmine Whitehead PA-C 132 [facility] [place] [address] 03/16/2022 Imaging Radiology 03/24/2022 PulmDiagnostic Pulmonary Function [place], Pft [address] [facility] [place] [address] 05/07/2022 PulmDiagnostic Pulmonary Function [place], Pft [address] [place] [address] 08/21/2022 Office Visit Pulmonary Jesus Bonilla MD [address] [place] [id number] Scheduled Procedures Name Priority Associated Diagnoses Date/Ti [...] Documents on File Type Date Recorded Patient Molecular Genetic Pathologist Expl 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 Advanced Directive 11/02/2011 12:00 AM Care Teams Nursing Admin Relationship Specialty Start Date End Date Jeevan Mclean MD [address] [place] [address] PCP - General Family Medicine 12/29/19 documented as of this encounter
--- OUTSIDE RECORDS SUMMARY | 2023-07-25 04:41 | External Medical Summary ---
Author Name Unknown Address Unknown Organization [facility] [address] [place] [address] Laboratory Report Ordering Provider Test Date Status SUMAN STANFORD 02/16/2022 10:25:00 Final Observation Date Value Abnormality Reference (Units ) Status PT 02/16/2022 10:25:00 37.5 Above high normal 11 .5-14.6 (seconds) Final INR 02/16/2022 10:25:00 3.85 Above high normal 0. 84-1.14 Final Performing Location [facility] [place] [address] [place] [address]
--- OUTSIDE RECORDS SUMMARY | 2023-07-25 04:41 | External Medical Summary | Summary of Care ---
Author Name Unknown Organization [facility] Address [place] [address] Care Team Providers Care Receivable Manager Name Role Phone Roger Alexandra MD Primary Care Provider [phone] [phone] Encounter Details Date Type Department Care Team Description 12/31/2021 Orders Only Pulmonary Medicine Vangie Meier [address] [place] [id number] Jesus Bonilla MD [address] [place] [address] Allergies Active Allergy Reactions Severity Noted Date Comments Aspirin Unknown 12/12/2007 von Willebrand's disease Salicylates 03/01/2000 von Willebrand's disease documented as of this encounter (statuses as of 02/14/2022) Medications Medication Sig Dispensed Refills Start Date End Date Status OXYGEN 4 L during the day as needed and at bedtime 0 02/14/2015 Active Disposable Brief X-LargeIndications:Ov eractive bladder Attends X-Large Super Absorb Underwear 32 Each 2 03/18/2021 Active Vitamin D (Cholecalciferol) 25 MCG (1000 UT) Oral Capsule Take 1 Cap by mouth daily. 30 Cap 5 05/05/2021 Active Warfarin Sodium 5 MG Oral Tablet (Coumadin)Indications :Paroxysmal atrial fibrillation (HCC) Take 1.5-2 Tabs by mouth daily. As directed by coumadin clinic 180 Tab 1 08/18/2021 Active Nystatin 487288 UNIT/GM External Powder (Nyamyc) apply to affected [...] before bedtime. 30 Tablet 1 12/17/2021 Active documented as of this encounter (statuses as of 02/14/2022) Active Problems Problem Noted Date History of [...] as of this encounter (statuses as of 02/14/2022) Resolved Problems Problem Noted Date Resolved Date [...] as of this encounter (statuses as of 02/14/2022) Immunizations Name Administration Dates Next Due H1N1 [...] Encounters Date Type Specialty Care Team Description 02/16/2022 Laboratory Laboratory Processing [place], [facility] Mobile Home Draw [address] [facility] [place] [address] 02/17/2022 [facility] [address] [facility] [place] [address] 02/25/2022 Office Visit Otolaryngology Jazmine Whitehead PA-C 132 [facility] [place] [address] 03/16/2022 Imaging Radiology 03/24/2022 PulmDiagnostic Pulmonary Function [place], Pft [address] [facility] [place] [address] 05/07/2022 PulmDiagnostic Pulmonary Function [place], Pft 132 [facility] [place] [address] 08/21/2022 Office Visit Pulmonary Jesus Bonilla MD [address] [place] [phone] Scheduled Procedures Name Priority Associated Diagnoses Date/Ti [...] visit until score < 10) 04/24/2021 04/23/2021 O2 ASSESSMENT COMPLETED IN PAST YEAR FOR [...] Procedure Name Priority Date/Time Associated Diagnosis Comments RADIOLOGY EXAM - GENERAL RAD (IMAGES ONLY,NO REPORT) Routine 12/31/2021 3:35 PM EST documented in this encounter Results * RADIOLOGY EXAM - GENERAL RAD (IMAGES ONLY,NO REPORT) (12/31/2021 3:35 PM EST) Specimen Narrative Scheduling, Silent - 02/14/2022 4:02 AM EDT This is an imaging study not interpreted or resulted by a [facility] or [facility] contracted radiologist. documented in this encounter Advance Directives Documents on File Type Date Recorded Patient Management Professionals Expl 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 Advanced Directive 11/02/2011 12:00 AM Care Teams Receivable Manager Relationship Specialty Start Date End Date Roger Alexandra MD [address] [place] [address] PCP - General Family Medicine 12/29/19 documented as of this encounter
--- OUTSIDE RECORDS SUMMARY | 2023-07-25 04:41 | External Medical Summary | Summary of Care ---
Author Name Unknown Organization [place] [address] Care Team Providers Care Food Service Substitute Name Role Phone Roger Alexandra MD Primary Care Provider [phone] [phone] Reason for Visit * Reason Onset Date Comments Med Request 02/16/2022 Encounter Details Date Type Department Care Team Description 02/16/2022 Telephone Family Practice [facility] [address] [place] [address] Roger Alexandra MD 132 [facility] [place] [id number] Med Request Allergies Active Allergy Reactions Severity [...] mouth daily. 30 Cap 5 1 Active Warfarin Sodium 5 MG Oral Tablet (Coumadin)Indicatio ns:Paroxysmal atrial fibrillation (HCC) Take 1.5-2 Tabs by mouth daily. As directed by coumadin clinic 180 Tab 1 1 Active Nystatin 737924 UNIT/GM External Powder (Nyamyc) apply to affected [...] ndications:COPD, group D, by GOLD 2017 classification ([facility]) Inhale by mouth 1 Puff in the morning. 60 Blister Dosing Unit 3 2 Active Baclofen 10 MG Oral Tablet (Lioresal) Take by mouth 1 Tablet as needed in the morning AND 1 Tablet as needed at noon AND 1 Tablet as needed in the evening for Muscle spasms. 90 Tablet 3 2 Active Baclofen 10 MG Oral Tablet (Lioresal) Take by mouth 10 mg . Take 1/2 tablet 3 times a day. 0 02/17/20 22 Discontinu ed(Refill) documented as of [...] Telephone Encounter - Blanche Polk CPhT - 02/16/2022 10:19 AM EDT Pt is requesting the following: Medication Name: baclofen Strength: 10 MG Directions: pt states she took 0.5 in the morning, 0.5 in the afternoon and 0.5 at night Preferred Quantity: n/a Previous [facility]: [facility] Preferred Pharmacy: [id number] Please review and approve if appropriate. Thank you, Blanche Polk Power Lineman Technician [facility] 02/16/2022, 10:19 AM documented in this encounter Plan of Treatment Upcoming Encounters Date Type Specialty Care Team Description 02/17/2022 [facility] [address] 60 [facility] [place] [address] 02/25/2022 Office Visit Otolaryngology Jazmine Whitehead PA-C 132 [facility] [place] [address] 03/16/2022 Imaging Radiology 03/24/2022 PulmDiagnostic Pulmonary Function [place], Pft [address] [facility] [place] [address] 05/07/2022 PulmDiagnostic Pulmonary Function [place], Pft [address] [place] [address] 08/21/2022 Office Visit Pulmonary Jesus Bonilla MD [address] [place] [phone] Scheduled Procedures Name Priority Associated Diagnoses Date/Ti [...] Documents on File Type Date Recorded Patient Three Dimensional Art Instructor Expl 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 Advanced Directive 11/02/2011 12:00 AM Care Teams Food Service Substitute Relationship Specialty Start Date End Date Roger Alexandra MD [address] [facility] [place] [address] PCP - General Family Medicine 12/29/19 documented as of this encounter
--- OUTSIDE RECORDS SUMMARY | 2023-07-25 04:41 | External Medical Summary | Summary of Care ---
Author Name Unknown Organization [facility] Address [place] [address] Care Team Providers Care Water Commissioner Name Role Phone Roger Alexandra MD Primary Care Provider [phone] Encounter Details Date Type Department Care Team Description 12/26/2021 Orders Only Pulmonary Medicine Vangie Meier [address] [place] [phone] Jesus Bonilla MD [address] [place] [address] Allergies Active Allergy Reactions Severity Noted Date [...] clinic 180 Tab 1 08/18/2021 Active Nystatin 140277 UNIT/GM External Powder (Nyamyc) apply to affected [...] Team Description 02/16/2022 Laboratory Laboratory Processing [place], [facility] Mobile Home Draw [address] [facility] [place] [address] 02/17/2022 [facility] 58 60 [facility] [place] [address] 02/25/2022 Office Visit Otolaryngology Jazmine Whitehead PA-C 132 [facility] [place] [address] 03/16/2022 Imaging Radiology 03/24/2022 PulmDiagnostic Pulmonary Function [place], Pft [address] [facility] [place] [address] 05/07/2022 PulmDiagnostic Pulmonary Function [place], Pft [address] [facility] [place] [address] 08/21/2022 Office Visit Pulmonary Jesus Bonilla MD [address] [place] [phone] Scheduled Procedures Name Priority Associated Diagnoses Date/Ti [...] - GENERAL RAD (IMAGES ONLY,NO REPORT) Routine 12/26/2021 7:20 PM EST documented in this encounter Results * RADIOLOGY EXAM - GENERAL RAD (IMAGES ONLY,NO REPORT) (12/26/2021 7:20 PM EST) Specimen Narrative Scheduling, Silent - 02/14/2022 3:59 AM EDT This is an imaging study not interpreted or resulted by a [facility] or [facility] contracted radiologist. documented in this encounter Advance Directives Documents on File Type Date Recorded Patient Steam Bone Press Tender Expl 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 Advanced Directive 11/02/2011 12:00 AM Care Teams Water Commissioner Relationship Specialty Start Date End Date Roger Alexandra MD [address] [place] [address] PCP - General Family Medicine 12/29/19 documented as of this encounter
--- OUTSIDE RECORDS SUMMARY | 2023-07-25 04:41 | External Medical Summary | Summary of Care ---
Author Name Unknown Organization [facility] Address [place] [address] Care Team Providers Care Six Color Press Operator Name Role Phone Jeevan Mclean MD Primary Care Provider +1 [phone] Reason for Visit * Reason Onset Date Comments Medication Refill 02/16/2022 Encounter Details Date Type Department Care Team Description 02/16/2022 Refill Pharmacy Call Center 58-60 [facility] [place] [address] [facility] 58 60 [place] [address] Paroxysmal atrial fibrillation (HCC) Allergies Active Allergy [...] daily. 30 Cap 5 1 Active Nystatin 215876 UNIT/GM External Powder (Nyamyc) apply to affected [...] coumadin clinic. 90 Tablet 3 2 Active Warfarin Sodium 5 MG Oral Tablet (Coumadin)Indicatio ns:Paroxysmal atrial fibrillation (HCC) Take 1.5-2 Tabs by mouth daily. As directed by coumadin clinic 180 Tab 1 1 02/17/20 22 Discontinu ed(Refill) documented as of [...] encounter Miscellaneous Notes * Telephone Encounter - Harini Craft [facility] - 02/16/2022 12:20 PM EDT Signed Prescriptions: Disp Refills Warfarin Sodium 5 MG Oral Tablet (Coumadin)90 Tab*3 Sig: Take bymouth 1 Tablet in the evening. OR As directed by coumadin clinic.Authorizing Provider: JEEVAN MCLEAN User: HARINI CRAFT * Telephone Encounter - Blanche Polk CPhT - 02/16/2022 10:18 AM EDT Pt calling to check status of refill. Thank you, Blanche Polk [facility] 02/16/2022, 10:18 AM * Telephone Encounter - RUFINA Esparza - 02/16/2022 10:03 AM EDT Pending Prescriptions: Disp Refills Warfarin Sodium 5 MG Oral Tablet (Coumadi*180 Ta*1 Sig: Take by mouth 1.5-2 Tablets in the morning. As directed by coumadin clinic. Last Visit: Visit date not found (in office), Visit date not found (telemedicine) Next Visit: 02/17/2022 If no future appointments scheduled, and last appointment is greater than a year ago, please schedule patient for a follow-up appointment Last date the medication was ordered: Pharmacy: [facility] [place] [address] Is this request for a controlled substance? Urine Drug Screen: Results for orders placed [...] Specialty Care Team Description 02/17/2022 [facility] 58 60 [facility] [place] [address] 02/25/2022 Office Visit Otolaryngology Jazmine Whitehead PA-C [address] [place] [address] 03/16/2022 Imaging Radiology 03/24/2022 PulmDiagnostic Pulmonary Function [place], Pft [address] [place] [address] 05/07/2022 PulmDiagnostic Pulmonary Function [place] Pft [address] [place] [address] 08/21/2022 Office Visit Pulmonary Jesus Bonilla MD [address] [place] [id number] Scheduled Procedures Name Priority Associated Diagnoses Date/Ti [...] Documents on File Type Date Recorded Patient Premium Representative Expl 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 Advanced Directive 11/02/2011 12:00 AM Care Teams Six Color Press Operator Relationship Specialty Start Date End Date Jeevan Mclean MD [address] [place] [address] [place] [address] PCP - General Family Medicine 12/29/19 documented as of this encounter
--- OUTSIDE RECORDS SUMMARY | 2023-07-25 04:41 | External Medical Summary | Summary of Care ---
Author Name Unknown Organization [place] [address] Care Team Providers Care Technical Business Systems Analyst Name Role Phone Roger Alexandra MD Primary Care Provider [phone] [phone] Encounter Details Date Type Department Care Team Description 02/25/2022 Office Visit Aud[facility] [address] [facility] [address] Tresa Chappell Au.D. [address] [place] [address] Bilateral sensorineural hearing loss* Allergies Active Allergy [...] daily. 30 Cap 5 05/05/2021 Active Nystatin 328841 UNIT/GM External Powder (Nyamyc) apply to affected [...] referral from Otolaryngology clinic. Standard audiometric testing 70882 ABSD supra-aural earphones Good reliability Right:a mild sloping down to a severe sensorineural hearing loss Left:a mild sloping down to a severe sensorineural hearing loss Speech recognition thresholds were consistent with hearing thresholds. Word recognition scores, obtained via recorded material were: right 84%, left 96% Serafin Weinstein Care Worker 02/25/2022 9:59 AM Scan: audiogram documented in this encounter Plan of Treatment Upcoming Encounters Date Type Specialty Care Team Description 03/09/2022 Laboratory Laboratory Processing [facility] Mobile Home Draw [address] [place] [address] 03/10/2022 [facility] 58 60 [place] [address] 03/16/2022 Imaging Radiology 03/24/2022 PulmDiagnostic Pulmonary Function [place], [address]ft 132 [facility] [place] [address] 05/07/2022 PulmDiagnostic Pulmonary Function [place], [address] 132 [facility] [place] [address] 08/21/2022 Office Visit Pulmonary Jesus Bonilla MD [address] [place] [address] 09/02/2022 Office Visit Otolaryngology Jazmine Whitehead PA-C 132 [facility] [place] [address] Scheduled Procedures Name Priority Associated Diagnoses Date/Ti [...] Documents on File Type Date Recorded Patient Filling And Stapling Machine Operator Expl 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 Directive 11/02/2011 12:00 AM Care Teams Technical Business Systems Analyst Relationship Specialty Start Date End Date Roger Alexandra MD [address] [place] [address] [place] [address] PCP - General Family Medicine 12/29/19 documented as of this encounter
--- OUTSIDE RECORDS SUMMARY | 2023-07-25 04:41 | External Medical Summary | Summary of Care ---
Author Name Unknown Organization [facility] Address [place] [address] Care Team Providers Care Casting House Laborer Name Role Phone Roger Alexandra MD Primary Care Provider [phone] [phone] Encounter Details Date Type Department Care Team Description 12/27/2021 Orders Only Pulmonary Medicine Vangie Meier [address] [place] [id number] Jesus Bonilla MD [address] [place] [address] Allergies Active Allergy Reactions Severity Noted Date [...] clinic 180 Tab 1 08/18/2021 Active Nystatin 556699 UNIT/GM External Powder (Nyamyc) apply to affected [...] Team Description 02/16/2022 Laboratory Laboratory Processing Gm, [facility] Mobile Home Draw [address] [facility] [place] [address] 02/17/2022 [facility] 58 60 [facility] [place] [address] 02/25/2022 Office Visit Otolaryngology Jazmine Whitehead PA-C 132 [facility] [place] [address] 03/16/2022 Imaging Radiology 03/24/2022 PulmDiagnostic Pulmonary Function [place], Pft 132 [facility] [place] [address] 05/07/2022 PulmDiagnostic Pulmonary Function [place], Pft 132 [facility] [place] [address] 08/21/2022 Office Visit Pulmonary Jesus Bonilla MD [address] [place] [phone] Scheduled Procedures Name Priority Associated Diagnoses Date/Ti [...] Date/Time Associated Diagnosis Comments RADIOLOGY EXAM - CT (IMAGES ONLY, NO REPORT) Routine 12/27/2021 10:10 PM EST documented in this encounter Results * RADIOLOGY EXAM - CT (IMAGES ONLY, NO REPORT) (12/27/2021 10:10 PM EST) Specimen Narrative Scheduling, Silent - 02/14/2022 4:04 AM EDT This is an imaging study not interpreted or resulted by a [facility] contracted radiologist. documented in this encounter Advance Directives Documents on File Type Date Recorded Patient Maintenance Machinist Expl 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 Advanced Directive 11/02/2011 12:00 AM Care Teams Casting House Laborer Relationship Specialty Start Date End Date Roger Alexandra MD 132 [place] [address] PCP - General Family Medicine 12/29/19 documented as of this encounter
--- OUTSIDE RECORDS SUMMARY | 2023-07-25 04:41 | External Medical Summary ---
Author Name Unknown Address Unknown Organization : Laboratory Report Ordering Provider Test Date Status ROD CHAVIS 02/16/2022 10:25:00 Final Observation Date Value Abnormality Reference (Units ) Status Alpha-1 antitrypsin 02/16/2022 10:25:00 153 83-199 (mg/dL) Final Performing Location
--- OUTSIDE RECORDS SUMMARY | 2023-07-25 04:41 | External Medical Summary | Summary of Care ---
Author Name Unknown Organization [facility] Address [place] [address] Care Team Providers Care Beehive Kiln Supervisor Name Role Phone Roger Alexandra MD Primary Care Provider [phone] [phone] Reason for Visit * Reason Onset Date Comments case management 02/20/2022 Closing from Gideon e Management Encounter Details Date Type Department Care Team Description 02/20/2022 Cloth Mercerizing Supervisor Telephone Family Practice [facility] [address] [facility] [place] [address] Arlin Elise RN [address] [place] [address] case management (Closing from Case Managem... Allergies Active Allergy Reactions Severity Noted Date Comments Aspirin Unknown 12/12/2007 von Willebrand's disease Salicylates 03/01/2000 von Willebrand's disease documented as of this encounter (statuses as of 02/20/2022) Medications Medication Sig Dispensed Refills Start Date End Date Status OXYGEN 4 L during the day as needed and at bedtime 0 02/14/2015 Active Disposable Brief X-LargeIndications:O veractive bladder Attends X-Large Super Absorb Underwear 32 Each 2 03/18/2021 Active Vitamin D (Cholecalciferol) 25 MCG (1000 UT) Oral Capsule Take 1 Cap by mouth daily. 30 Cap 5 05/05/2021 Active Nystatin 905468 UNIT/GM External Powder (Nyamyc) apply to affected [...] as of this encounter (statuses as of 02/20/2022) Active Problems Problem Noted Date History of [...] as of this encounter (statuses as of 02/20/2022) Resolved Problems Problem Noted Date Resolved Date [...] 02/04/2006 12/21/2008 Atrial septal aneurysm 02/04/2006 9 real estate asset manager current use 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 0 [...] as of this encounter (statuses as of 02/20/2022) Immunizations Name Administration Dates Next Due H1N1 [...] encounter Miscellaneous Notes * Telephone Encounter - Arlin Elise RN - 02/20/2022 1:07 PM EDT 30 day RAYSHAWN completed. No readmissions or ER visits in the past 30 days. PCP follow up appointment kept on 01/23/22. Disenrolled from post discharge IVR calls. Closing from Case Management. documented in this encounter Plan of Treatment Upcoming Encounters Date Type Specialty Care Team Description 02/25/2022 Office Visit Otolaryngology Jazmine Whitehead PA-C 132 [facility] [place] [address] 03/09/2022 Laboratory Laboratory Processing [facility] Mobile [facility] Draw [address] [place], [place] [phone] 03/10/2022 [facility] 60 [facility] [address] 03/16/2022 Imaging Radiology 03/24/2022 PulmDiagnostic Pulmonary Function [place], Pft [address] [facility] [place] [address] 05/07/2022 PulmDiagnostic Pulmonary Function [place], Pft [address] [facility] [place] [address] 08/21/2022 Office Visit Pulmonary Jesus Bonilla MD [address] [place] [address] Scheduled Procedures Name Priority Associated Diagnoses Date/Ti [...] Documents on File Type Date Recorded Patient Shuttle Final Inspector Expl 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 Advanced Directive 11/02/2011 12:00 AM Care Teams Beehive Kiln Supervisor Relationship Specialty Start Date End Date Roger Alexandra MD 132 [place] [address] PCP - General Family Medicine 12/29/19 documented as of this encounter
--- OUTSIDE RECORDS SUMMARY | 2023-07-25 04:41 | External Medical Summary | Summary of Care ---
Author Name Unknown Organization [place] [address] Care Team Providers Care Mechanical Assembly Technician Name Role Phone Roger Alexandra MD Primary Care Provider [phone] [phone] Reason for Visit * Reason Onset Date Comments Med Request 02/23/2022 Encounter Details Date Type Department Care Team Description 02/23/2022 Telephone Family Practice [facility] [address] [place] [id number] Roger Alexandra MD 132 [facility] [place] [id number] Med Request Allergies Active Allergy Reactions Severity Noted Date Comments Aspirin Unknown 12/12/2007 von Willebrand's disease Salicylates 03/01/2000 von Willebrand's disease documented as of this encounter (statuses as of 02/23/2022) Medications Medication Sig Dispensed Refills Start Date End Date Status OXYGEN 4 L during the day as needed and at bedtime 0 02/14/2015 Active Disposable Brief X-LargeIndications:O veractive bladder Attends X-Large Super Absorb Underwear 32 Each 2 03/18/2021 Active Vitamin D (Cholecalciferol) 25 MCG (1000 UT) Oral Capsule Take 1 Cap by mouth daily. 30 Cap 5 05/05/2021 Active Nystatin 603157 UNIT/GM External Powder (Nyamyc) apply to affected [...] as of this encounter (statuses as of 02/23/2022) Active Problems Problem Noted Date History of [...] as of this encounter (statuses as of 02/23/2022) Resolved Problems Problem Noted Date Resolved Date [...] as of this encounter (statuses as of 02/23/2022) Immunizations Name Administration Dates Next Due H1N1 [...] encounter Miscellaneous Notes * Telephone Encounter - Angela May MED ASSIST - 02/23/2022 6:53 PM EDT Faxed. * Telephone Encounter - Blanche Polk CPhT - 02/23/2022 5:29 PM EDT Timmy from [employer] calling for Rx's for underpad's, was cloth, and pull ons. They also need the diagnosis code, doctor's signature, and number of refills. Fax number: [phone] Thank you, Blanche Polk Extractor And Wringer Operator [facility] 02/23/2022, 5:31 PM documented in this encounter Plan of Treatment Upcoming Encounters Date Type Specialty Care Team Description 02/25/2022 Office Visit Otolaryngology Jazmine Whitehead PA-C 132 [facility] [place] [address] 03/09/2022 Laboratory Laboratory Processing [facility] Mobile Home Draw [address] [place] [address] 03/10/2022 [facility] 58 60 [place] [address] 03/16/2022 Imaging Radiology 03/24/2022 PulmDiagnostic Pulmonary Function [place], Pft [address] [place] [address] 05/07/2022 PulmDiagnostic Pulmonary Function [place], Pft [address] [place] [address] 08/21/2022 Office Visit Pulmonary Jesus Bonilla MD [address] [place] [phone] Scheduled Procedures Name Priority Associated Diagnoses Date/Ti [...] Documents on File Type Date Recorded Patient Auto Customize Painter Expl 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 Advanced Directive 11/02/2011 12:00 AM Care Teams Mechanical Assembly Technician Relationship Specialty Start Date End Date Roger Alexandra MD [address] [place] [address] [place] [address] PCP - General Family Medicine 12/29/19 documented as of this encounter
--- OUTSIDE RECORDS SUMMARY | 2023-07-25 04:41 | External Medical Summary | Summary of Care ---
Author Name Unknown Organization [facility] Address [place] [address] Care Team Providers Care Gravity Flow Irrigator Name Role Phone Roger Alexandra MD Primary Care Provider [phone] [phone] Reason for Visit * Reason Comments Dosage Adjustment Via Phone (anticoag Cl inic) Encounter Details Date Type Department Care Team Description 02/17/2022 Anticoagulation Pharmacy Call Center 58-60 [facility] [place] [address] Telepharmacy, [facility] [address] [place] [address] Anticoagulation management encounter* Allergies Active Allergy Reactions Severity Noted Date Comments Aspirin Unknown 12/12/2007 von Willebrand's disease Salicylates 03/01/2000 von Willebrand's disease documented as of this encounter (statuses as of 02/17/2022) Medications Medication Sig Dispensed Refills Start Date End Date Status OXYGEN 4 L during the day as needed and at bedtime 0 02/14/2015 Active Disposable Brief X-LargeIndications:O veractive bladder Attends X-Large Super Absorb Underwear 32 Each 2 03/18/2021 Active Vitamin D (Cholecalciferol) 25 MCG (1000 UT) Oral Capsule Take 1 Cap by mouth daily. 30 Cap 5 05/05/2021 Active Nystatin 349264 UNIT/GM External Powder (Nyamyc) apply to affected [...] as of this encounter (statuses as of 02/17/2022) Active Problems Problem Noted Date History of [...] as of this encounter (statuses as of 02/17/2022) Resolved Problems Problem Noted Date Resolved Date [...] as of this encounter (statuses as of 02/17/2022) Immunizations Name Administration Dates Next Due H1N1 [...] this encounter Progress Notes * Vignesh Whitaker, transfer driver - 02/17/2022 12:42 PM EDT Contacts Type Contact Phone 02/17/2022 12:40 PM EDT Phone (Outgoing) Kimberly Kendall (Self) [phone] (M) Left Message PT/INR results, Coumadin dose instructions, and next PT/INR date communicated as noted by Pharmacist: Yes Vignesh Whitaker transfer driver 02/17/2022, 12:42 PM * Kim Mercado [facility] - 02/17/2022 9:05 AM EDT Images from the original note were not included. Coumadin Clinic (region specific) Current Warfarin Dose As of 02/17/2022 Warfarin maintenance plan: 5 mg (5 mg x 1) every day INR Result As of 02/17/2022 INR goal: 2.0-3.0 INR used for dosin.85 (02/16/2022) Warfarin Plan As of 02/17/2022 Full warfarin instructions: 4/5: Hold; Otherwise 5 mg every day Next INR check: 03/09/2022 Repeat PT/INR in 3 week(s) Weekly dose: not changed Additional Dosing Information: Description [facility] Tech to contact patient with dose instructions as noted. Kim Mercado [facility] 02/17/2022, 9:06 AM documented in this encounter Plan of Treatment Upcoming Encounters Date Type Specialty Care Team Description 02/25/2022 Office Visit Otolaryngology Jazmine Whitehead PA-C 132 [facility] [place] [address] 03/09/2022 Laboratory Laboratory Processing [facility], [facility] Mobile Home Draw [address] [facility] [address] 03/10/2022 [facility] 58 60 [facility] [place] [address] 03/16/2022 Imaging Radiology 03/24/2022 PulmDiagnostic Pulmonary Function [place], Pft [address] [place] [address] 05/07/2022 PulmDiagnostic Pulmonary Function [place], Pft [address] [place] [address] 08/21/2022 Office Visit Pulmonary Jesus Bonilla MD [address] [place] [address] Scheduled Procedures Name Priority Associated Diagnoses Date/Ti [...] Documents on File Type Date Recorded Patient Marketing Strategy Analyst Expl 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 Advanced Directive 11/02/2011 12:00 AM Care Teams Gravity Flow Irrigator Relationship Specialty Start Date End Date Roger Alexandra MD 132 [facility] [place] [address] PCP - General Family Medicine 12/29/19 documented as of this encounter
--- OUTSIDE RECORDS SUMMARY | 2023-07-25 04:42 | External Medical Summary | Summary of Care ---
Author Name Unknown Organization [facility] Address [place] [address] Care Team Providers Care Supervisor White Sugar Name Role Phone Roger Alexandra MD Primary Care Provider [phone] [phone] Encounter Details Date Type Department Care Team Description 12/27/2021 Orders Only Pulmonary Medicine Vangie Meier [address] [place] [phone] Jesus Bonilla MD [address] [place] [address] Allergies Active Allergy Reactions Severity Noted Date [...] clinic 180 Tab 1 08/18/2021 Active Nystatin 553839 UNIT/GM External Powder (Nyamyc) apply to affected [...] Team Description 02/16/2022 Laboratory Laboratory Processing Gm, [facility] Mobile Home Draw [address] [facility] [place] [address] 02/17/2022 [facility] 58 60 [facility] [place] [address] 02/25/2022 Office Visit Otolaryngology Jazmine Whitehead PA-C [address] [facility] [place] [address] 03/16/2022 Imaging Radiology 03/24/[address] [place] [address], [address]ft [address] [facility] [place] [address] 05/07/[address] [place], [address] 132 [facility] [place] [address] 08/21/2022 Office Visit Pulmonary Jesus Bonilla MD [address] [place] [phone] Scheduled Procedures Name Priority Associated Diagnoses Date/Ti [...] CT (IMAGES ONLY, NO REPORT) Routine 12/27/2021 12:55 AM EST documented in this encounter Results * RADIOLOGY EXAM - CT (IMAGES ONLY, NO REPORT) (12/27/2021 12:55 AM EST) Specimen Narrative Scheduling, Silent - 02/14/2022 3:48 AM EDT This is an imaging study not interpreted or resulted by a [facility] or [facility] contracted radiologist. documented in this encounter Advance Directives Documents on File Type Date Recorded Patient Under Cutter Expl 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 Directive 11/02/2011 12:00 AM Care Teams Supervisor White Sugar Relationship Specialty Start Date End Date Roger Alexandra MD 132 [place] [address] PCP - General Family Medicine 12/29/19 documented as of this encounter
--- OUTSIDE RECORDS SUMMARY | 2023-07-25 04:42 | External Medical Summary | Summary of Care ---
Author Name Unknown Organization [place] [address] Care Team Providers Care Workflow Developer Name Role Phone Roger Alexandra MD Primary Care Provider [phone] Reason for Visit * Reason Onset Date Comments Medication Refill 02/09/2022 Encounter Details Date Type Department Care Team Description 02/09/2022 Telephone Family Practice [facility] [address] [place] [address] Roger Alexandra MD [address] [facility] [place] [address] Medication Refill Allergies Active Allergy Reactions Severity Noted Date Comments Aspirin Unknown 12/12/2007 von Willebrand's disease Salicylates 03/01/2000 von Willebrand's disease documented as of this encounter (statuses as of 02/09/2022) Medications Medication Sig Dispensed Refills Start Date End Date Status OXYGEN 4 L during the day as needed and at bedtime 0 02/14/2015 Active Disposable Brief X-LargeIndication s:Overactive bladder Attends X-Large Super Absorb Underwear 32 Each 2 03/18/2021 Active Vitamin D (Cholecalciferol) 25 MCG (1000 UT) Oral Capsule Take 1 Cap by mouth daily. 30 Cap 5 05/05/2021 Active Warfarin Sodium 5 MG Oral Tablet (Coumadin)Indicat ions:Paroxysmal atrial fibrillation (HCC) Take 1.5-2 Tabs by mouth daily. As directed by coumadin clinic 180 Tab 1 08/18/2021 Active Nystatin 613270 UNIT/GM External Powder (Nyamyc) apply to affected [...] 150 mg before bedtime. 0 01/17/2022 Active Budesonide-Formot jose martin Fumarate 80-4.5 MCG/ACT Inhalation Aerosol (Symbicort) Inhale by mouth 2 Puffs in the morning AND 2 Puffs before bedtime. 10.2 g 1 01/21/2022 Active busPIRone HCl 15 MG Oral Tablet (Buspar)Indicatio ns:Take in the morning Take by mouth 15 mg once . 0 Active ProAir HFA 108 (90 Base) MCG/ACT Inhalation Aerosol SolutionIndicatio ns:Bronchitis, complicated Inhale by mouth 2 Puffs 4 [...] 02/06/2022 Active traMADol HCl 100 MG Oral TabletIndications :Chronic bilateral low back pain without sciatica Take by mouth 100 mg every 8 hours as needed for Pain, Moderate or Pain, Severe. 90 Tablet 0 02/09/2022 Active oxyCODONE-Acetami nophen 5-325 MG Oral Tablet (Percocet)Indicat ions:Ambulatory dysfunction Take by mouth 1 Tablet every 8 hours as needed for Pain, Breakthrough. Continuation from discharge script 60 Tablet 0 01/23/2022 2 Discontinue d(Discharge d) documented as of this encounter (statuses as of 02/09/2022) Active Problems Problem Noted Date History of narcotic addiction 12/19/2021 Chronic hypoxemic respiratory failure COPD, group B, by GOLD 2017 classificati on 04/29/2021 Overview: Per COPD GOLD Classification PTSD (post-traumatic stress disorder) Grade I diastolic dysfunction 10/23/2020 Overview: Noted on ECHO 10/2020 Drug-seeking [...] as of this encounter (statuses as of 02/09/2022) Resolved Problems Problem Noted Date Resolved Date [...] as of this encounter (statuses as of 02/09/2022) Immunizations Name Administration Dates Next Due H1N1 [...] Miscellaneous Notes * Telephone Encounter - Piedad Dumas LPN - 02/09/2022 1:26 PM EDT Called patient, verbalized understanding * Telephone Encounter - Roger Alexandra MD - 02/09/2022 1:22 PM EDT Okay to go back on tramadol. New prescription sent. * Telephone Encounter - Samantha Qureshi CPhT - 02/09/2022 10:05 AM EDT Pt states she was given the Oxy/APAP at hospital discharge. Pt states she does not want to take them. She is asking if she can have her Tramadol back. States the Oxy/APAP made her " not with it". Pt uses [facility]. She can be reached at [phone] with any questions. Thanks, Samantha Qureshi Phramacy Work Ticket Distributor [facility] 02/09/2022, 10:08 AM documented in this encounter Plan of Treatment Upcoming Encounters Date Type Specialty Care Team Description 02/13/2022 Office Visit Pulmonary Jesus Bonilla MD [address] [place] [id number] 02/16/2022 Laboratory Laboratory Processing [facility], [facility] [address] [facility] [address] 02/17/2022 [facility] [address] [facility] [place] [address] 02/25/2022 Office Visit Otolaryngology Jazmine Whitehead PA-C [address] [facility] [place] [address] Scheduled Procedures Name Priority Associated Diagnoses Date/Ti [...] ASSESSMENT COMPLETED IN PAST YEAR FOR COPD 01/23/2023 01/23/2022 DIABETES SCREEN EVERY 3 YRS-AGE 45 AND [...] Documents on File Type Date Recorded Patient Asbestos Remover Expl 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 Advanced Directive 11/02/2011 12:00 AM Care Teams Workflow Developer Relationship Specialty Start Date End Date Roger Alexandra MD [address] [facility] [place] [address] PCP - General Family Medicine 12/29/19 documented as of this encounter
--- OUTSIDE RECORDS SUMMARY | 2023-07-25 04:42 | External Medical Summary | Summary of Care ---
Author Name Unknown Organization [facility] Address [place] [address] Care Team Providers Care Internal Combustion Engine Subassembler Name Role Phone Roger Alexandra MD Primary Care Provider [phone] Encounter Details Date Type Department Care Team Description 11/21/2021 Orders Only Pulmonary Medicine Vangie Meier [address] [place] [id number] Jesus Bonilla MD [address] [place] [address] Allergies Active Allergy Reactions Severity Noted Date Comments Aspirin Unknown 12/12/2007 von Willebrand's disease Salicylates 03/01/2000 von Willebrand's disease documented as of this encounter (statuses as of 02/14/2022) Medications Medication Sig Dispensed Refills Start Date End Date Status OXYGEN 4 L during the day as needed and at bedtime 0 02/14/2015 Active Disposable Brief X-LargeIndications:Ove ractive bladder Attends X-Large Super Absorb Underwear 32 Each 2 03/18/2021 Active Vitamin D (Cholecalciferol) 25 MCG (1000 UT) Oral Capsule Take 1 Cap by mouth daily. 30 Cap 5 05/05/2021 Active Warfarin Sodium 5 MG Oral Tablet (Coumadin)Indications: Paroxysmal atrial fibrillation (HCC) Take 1.5-2 Tabs by mouth daily. As directed by coumadin clinic 180 Tab 1 08/18/2021 Active Nystatin 773090 UNIT/GM External Powder (Nyamyc) apply to affected area twice a day 15 g 1 11/04/2021 Active documented as of this encounter (statuses [...] Team Description 02/16/2022 Laboratory Laboratory Processing [facility] Mobile Home Draw [address] [facility] [id number] 02/17/2022 [facility] [address] [facility] [place] [address] 02/25/2022 Office Visit Otolaryngology Jazmine Whitehead PA-C [address] [place] [address] 03/16/2022 Imaging Radiology 03/24/2022 PulmDiagnostic Pul[facility] [place] [address] [place] [address] 05/07/2022 PulmDiagnostic Pul[facility] Function [place] [address] [place] [address] 08/21/2022 Office Visit Pulmonary Jesus Bonilla MD [address] [place] [id number] Scheduled Procedures Name Priority Associated Diagnoses Date/Ti [...] - GENERAL RAD (IMAGES ONLY,NO REPORT) Routine 11/21/2021 8:05 PM EST documented in this encounter Results * RADIOLOGY EXAM - GENERAL RAD (IMAGES ONLY,NO REPORT) (11/21/2021 8:05 PM EST) Specimen Narrative Scheduling, Silent - 02/14/2022 3:56 AM EDT This is an imaging study not interpreted or resulted by a [facility] or [facility] contracted radiologist. documented in this encounter Advance Directives Documents on File Type Date Recorded Patient Respiratory Services Manager Expl 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 Advanced Directive 11/02/2011 12:00 AM Care Teams Internal Combustion Engine Subassembler Relationship Specialty Start Date End Date Roger Alexandra MD [address] [place] [address] PCP - General Family Medicine 12/29/19 documented as of this encounter
--- OUTSIDE RECORDS SUMMARY | 2023-07-25 04:42 | External Medical Summary | Summary of Care ---
Author Name Unknown Organization [place] [address] Care Team Providers Care Evaporator Supervisor Name Role Phone Roger Alexandra MD Primary Care Provider [phone] Reason for Visit * Reason Onset Date Comments Medication Refill 02/09/2022 Encounter Details Date Type Department Care Team Description 02/09/2022 Telephone Family Practice [facility] [address] [place] [address] Roger Alexandra MD [address] [facility] [place] [address] Medication Refill Allergies Active Allergy Reactions Severity [...] clinic 180 Tab 1 08/18/2021 Active Nystatin 346624 UNIT/GM External Powder (Nyamyc) apply to affected [...] [facility]. She can be reached at [phone] with any questions. Thanks, Samantha Qureshi Phrmiddlesborocy Marker Maker [facility] 02/09/2022, 10:08 AM documented in this encounter Plan of Treatment Upcoming Encounters Date Type Specialty Care Team Description 02/13/2022 Office Visit [facility]monary [facility] [address] [facility] [address] 02/16/2022 Laboratory Laboratory Processing [facility], [facility] Mobile Home Draw [address] [place] [address] 02/17/2022 [facility] [address] [place] [address] 02/25/2022 Office Visit Otolaryngology Jazmine Whitehead PA-C [address] [facility] [place] [address] Scheduled Procedures Name Priority Associated Diagnoses Date/Ti [...] Documents on File Type Date Recorded Patient Automation Lead Expl 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 Advanced Directive 11/02/2011 12:00 AM Care Teams Evaporator Supervisor Relationship Specialty Start Date End Date Roger Alexandra MD [address] [place] [address] PCP - General Family Medicine 12/29/19 documented as of this encounter
--- OUTSIDE RECORDS SUMMARY | 2023-07-25 04:42 | External Medical Summary | Summary of Care ---
Author Name Unknown Organization [facility] [address] Care Team Providers Care Sales And Support Center Agent Name Role Phone Roger Alexandra MD Primary Care Provider [phone] Reason for Visit * Reason Onset Date Comments Medication Refill 02/09/2022 Encounter Details Date Type Department Care Team Description 02/09/2022 Telephone Family Practice [facility] [address] [place] [address] Roger Alexandra MD [address] [facility] [place] [address] Medication Refill Allergies Active Allergy Reactions Severity [...] clinic 180 Tab 1 08/18/2021 Active Nystatin 439614 UNIT/GM External Powder (Nyamyc) apply to affected [...] encounter Miscellaneous Notes * Telephone Encounter - Samantha Qureshi CPhT - 02/09/2022 10:05 AM EDT Pt states she was given the Oxy/APAP at hospital discharge. Pt states she does not want to take them. She is asking if she can have her Tramadol back. States the Oxy/APAP made her " not with it". Pt uses [facility]. She can be reached at [phone] with any questions. Thanks, Samantha Qureshi [facility] [employer] Turbine Service Technician [facility] 02/09/2022, 10:08 AM documented in this encounter Plan of Treatment Upcoming Encounters Date Type Specialty Care Team Description 02/13/2022 Office Visit Pulmonary Jesus Bonilla MD [address] [place] [phone] 02/16/2022 Laboratory Laboratory Processing [facility], [facility] Mobile Home Draw [address] [place], [place] [phone] 02/17/2022 [facility] [address] [facility] [address] 02/25/2022 Office Visit Otolaryngology Jazmine Whitehead PA-C [address] [facility] [place] [address] Scheduled Procedures Name Priority Associated Diagnoses Date/Ti [...] Documents on File Type Date Recorded Patient Dishwashing Machine Operator Expl 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 Directive 11/02/2011 12:00 AM Care Teams Sales And Support Center Agent Relationship Specialty Start Date End Date Roger Alexandra MD [address] [place] [address] PCP - [facility] 12/29/19 documented as of this encounter
--- OUTSIDE RECORDS SUMMARY | 2023-07-25 04:42 | External Medical Summary | Summary of Care ---
Author Name Unknown Organization [facility] Address [place] [address] Care Team Providers Care Comic Artist Name Role Phone Roger Alexandra MD Primary Care Provider [phone] Encounter Details Date Type Department Care Team Description 12/27/2021 Orders Only Pulmonary Medicine Vangie Meier [address] [place] [phone] Jesus Bonilla MD [address] [place] [address] Allergies Active Allergy Reactions Severity Noted Date [...] clinic 180 Tab 1 08/18/2021 Active Nystatin 909565 UNIT/GM External Powder (Nyamyc) apply to affected [...] Team Description 02/16/2022 Laboratory Laboratory Processing [facility] Mobile Home Draw [address] [facility] [place] [address] 02/17/2022 [facility] [address] [facility] [place] [address] 02/25/2022 Office Visit Otolaryngology Jazmine Whitehead PA-C [address] [facility] [place] [address] 03/16/2022 Imaging Radiology 03/24/2022 PulmDiagnostic Pulmonary Function [place], [facility] [address] [facility] [place] [address] 05/07/2022 PulmDiagnostic Pulmonary Function [place], [facility]ft [address] [facility] [place] [address] 08/21/2022 Office Visit Pulmonary Jesus Bonilla MD [address] [place] [phone] Scheduled Procedures Name Priority Associated Diagnoses Date/Ti [...] CT (IMAGES ONLY, NO REPORT) Routine 12/27/2021 1:00 AM EST documented in this encounter Results * RADIOLOGY EXAM - CT (IMAGES ONLY, NO REPORT) (12/27/2021 1:00 AM EST) Specimen Narrative Scheduling, Silent - 02/14/2022 3:51 AM EDT This is an imaging study not interpreted or resulted by a [facility] or [facility] contracted radiologist. documented in this encounter Advance Directives Documents on File Type Date Recorded Patient Commercial Litigation Paralegal Expl 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 Advanced Directive 11/02/2011 12:00 AM Care Teams Comic Artist Relationship Specialty Start Date End Date Roger Alexandra MD [address] [place] [address] PCP - General Family Medicine 12/29/19 documented as of this encounter
--- OUTSIDE RECORDS SUMMARY | 2023-07-25 04:42 | External Medical Summary | Summary of Care ---
Author Name Unknown Organization [place] [address] Care Team Providers Care Ivf Embryologist Name Role Phone Roger Alexandra MD Primary Care Provider [phone] Reason for Referral * Precert (Within 10 days (routine)) - Authorized Specialty Diagnoses / Procedures Referred By Anna hendrix Referred To Contact Radiology Diagnoses Pneumonia due to COVID-[address] CHEST WO CONTRAST eJsus Bonilla MD [address] [place] [address] Referral ID Status Reason Start Date Expiration Date V isits Requested Visits Authorized [id number] Authorized 03/15/2022 1 1 Reason for Visit * Reason Comments NEW PATIENT * Evaluate & Treat - Unlimited Visits (Within 30 days (routine)) - Closed Specialty Diagnoses / Procedures Referred By Anna hendrix Referred To Contact Pulmonary Diseases / Pulmonary Diagnoses COPD, group B, by GOLD 2017 classification (HCC) Oxygen dependent Chronic hypoxemic respiratory failure (HCC) Joy Cerda CRNP [address] [facility] [place] [address] Referral ID Status Reason Start Date Expiration Date V isits Requested Visits Authorized [id number] Closed Specialty Services Required 06/12/2021 1 1 Encounter Details Date Type Department Care Team Description 02/13/2022 Office Visit Pulmonary Medicine, [facility] [address] [place] [address] Jesus Bonilla MD [address] [place] [address] Chronic hypoxemic respiratory failure (HCC)*; COPD, group D, by GOLD 2017 classification (HCC); Paroxysmal atrial fibrillation (HCC); Morbid obesity due to excess calories (HCC); Obstructive sleep apnea; Pneumonia due to COVID-19 virus; Chronic diastolic CHF (congestive heart failure) (HCC); Chronic obstructive pulmonary disease, unspecified COPD type (HCC) ; Muscular deconditioning Allergies Active Allergy Reactions Severity Noted Date Comments Aspirin Unknown 12/12/2007 von Willebrand's disease Salicylates 03/01/2000 von Willebrand's disease documented as of this encounter (statuses as of 02/13/2022) Medications Medication Sig Dispensed Refills Start Date [...] Tablet (Coumadin)Indicati ons:Paroxysmal atrial fibrillation (HCC) Take 1.5-2 Tabs by mouth daily. As directed by coumadin clinic 180 Tab 1 1 Active Nystatin 325576 UNIT/GM External Powder (Nyamyc) apply to affected [...] 2017 classification ([facility]) Inhale by mouth 1 Puff in the morning. 60 Blister Dosing Unit 3 2 Active Budesonide-Formote rol Fumarate 80-4.5 MCG/ACT Inhalation Aerosol (Symbicort) Inhale by mouth 2 Puffs in the morning AND 2 Puffs before bedtime. 10.2 g 1 2 02/14/20 22 Discontinued documented as of this encounter (statuses as of 02/13/2022) Active Problems Problem Noted Date History of [...] as of this encounter (statuses as of 02/13/2022) Resolved Problems Problem Noted Date Resolved Date [...] Atrial septal aneurysm 02/04/2006 [address] agent current use 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 0 [...] as of this encounter (statuses as of 02/13/2022) Immunizations Name Administration Dates Next Due H1N1 [...] Sign Reading Time Taken Comments Blood Pressure 116/80 02/13/2022 2:31 PM EDT Pulse 110 02/13/2022 2:31 PM EDT Temperature 35.7 C (96.3 F) 02/13/2022 2:31 PM ED T Respiratory Rate 16 02/13/2022 2:31 PM EDT Oxygen Saturation 90% 02/13/2022 2:31 PM EDT 3lpm rest Inhaled Oxygen Concentration - - Weight 120.2 kg (265 lb) 02/13/2022 2:31 PM EDT Height 157.5 cm (5' 2") 02/13/2022 2:31 PM EDT Body Mass Index 48.47 02/13/2022 2:31 PM EDT documented in this encounter Progress Notes * Jesus Bonilla MD - 02/13/2022 2:06 PM EDT INITIAL PULMONARY CONSULTATION NOTE REFERRING PHYSICIAN: Roger Alexandra MD REASON FOR REFERRAL: chronic respiratory failure, COPD HPI: 61-year-old female history of morbid obesity, COPD, atrial fibrillation, RUFINA, Von Willebrand'sdisease, chronic hypoxic respiratory failure, 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 At home uses oxygen of 3 L at rest and with exertion is on 4 L, 3 L with sleep. Refused cpap for her rufina. She has a morning chronic cough She has sputum which is yellow, thick, chronic, at baseline She denies hemoptysis She becomes short of breath after any type of exertion including doing her ADLs She has had 1 number or ER visits and 1 number of courses of prednisone related to his breathing inthe last year She smokes 2 ppd from age 13 until 58. Quit 2017. She has hx of pneumonia Her current inhaler regime is symbicort, prn albuterol. Uses lasix daily for her CHF On coumadin due to embolic strokes She feels his inhalers help minimally She denies hay fever/seasonal allergies She denies night time cough Past Medical History: Diagnosis Date Back disorder Benign neoplasm of colon 10/06/10 adenomatous/repeat colonoscopy in 1 yr Chronic bilateral low back pain without sciatica 10/14/2020 COPD, mild (HCC) 04/06/2007 COPD, severe (HCC) 04/06/2007 Depressive disorder, not elsewhere classified Drug-seeking [...] stress disorder) 03/05/2021 Schizoaffective disorder, chronic condition (HCC) followed Dr Robby Diego [facility] Sequelae, post-stroke CVA Status asthmaticus Von Willebrand's disease (HCC) Past Surgical History: Procedure Laterality Date COLONOSCOPY, DIAGNOSTIC (RECTUM) 11/12/2020 large adenomatous polyp, repeat 6 mo / [facility] COLONOSCOPY, W/BIOPSY 10/06/2010 adenomatous/repeat colonoscopy in 1 yr COLONOSCOPY, W/BIOPSY 05/22/2013 hyperplastic polyp EGD, FLEXIBLE, DIAGNOSTIC 02/26/2015 retained food/[facility] EGD, FLEXIBLE, DIAGNOSTIC 11/12/2020 Gastric submucosal mass / [facility] EGD, FLEXIBLE, DIAGNOSTIC 11/06/2020 gastritis / [facility] EGD, FLEXIBLE, W/BIOPSY 05/19/2013 EGD, W/ENDOSCOPIC US 11/05/2011 UPPER GI ENDOSCOPY ENDOSCOPIC ULTRASOUND performed by BERENICE ASHBY at END[facility]; REPAIR INITIAL INGUINAL HERNIA REMOVE GALLBLADDER TOTAL HYSTERECTOMY and bso Allergies: Aspirin and Salicylates Current Outpatient Medications Medication Sig Dispense Refill OXYGEN 4 L during the day as needed and at bedtime Disposable Brief X-Large Attends X-Large Super Absorb Underwear 32 Each 2 Vitamin D (Cholecalciferol) 25 MCG (1000 UT) Oral Capsule Take 1 Cap by mouth daily. 30 Cap 5 Warfarin Sodium 5 MG Oral Tablet (Coumadin) Take 1.5-2 Tabs by mouth daily. As directed by coumadin clinic 180 Tab 1 Nystatin 489481 UNIT/GM External Powder ([facility]) apply to affected area twice a day [...] Take by mouth 150 mg before bedtime. Budesonide-Formoterol Fumarate 80-4.5 MCG/ACT Inhalation Aerosol (Symbicort) Inhale by mouth 2 Puffs in the morning AND 2 Puffs before bedtime. 10.2 g 1 busPIRone HCl 15 MG Oral Tablet (Buspar) [...] Pain, Moderateor Pain, Severe. 90 Tablet 0 No current facility-administered medications for this visit. SOCIAL HISTORY Current residence: 1 year, heating is oil, basement is dry. No hot tub or sauna. No recent remodeling. Floors are wood, carpet. Living arrangement: Lives alone Occupation: Never worked. On disability. Occupational/Environmental Exposures: Denies exposures to dust, chemicals, fumes, mold,asbetsos Travel: none Pets: cat Alcohol consumption: Alcohol History: none Exercise: Rare - recent discharged from [facility]. FAMILY HISTORY: Family History Problem Relation Age of Onset Lung Disorder Mother copd Other (hepatitis) Mother Heart Disorder Father age 55 mu Mental Disorder Father schizophrenia Asthma Father Other (Other) Sister from sleep apnea Neurological Disorder Sister MR and epilepsy Other (Other) Son 2 sons von willebrand Other (Other) Daughter asd SYSTEMS REVIEW: REVIEW OF SYSTEMS CONSTITUTIONAL ROS: [...] CARDIOVASCULAR ROS: No chest pain, No orthopnea, No paroxysmal nocturnal dyspnea, +edema, No palpitations and No [...] and No Food Allergies PHYSICAL EXAM: BP 116/80 | Pulse 110 | Temp 35.7 C (96.3 F) (Tympanic) | Resp 16 | Ht 1.575 m (5' 2") | Wt 120.2 kg (265 lb) | SpO2 90% Comment: 3lpm rest | BMI 48.47 kg/m | BSA 2.29 m GEN:morbidly obese middle aged female, appears older then stated age, wearing oxygen, speaking in complete sentences HEENT: eyes perrla, trachea midline, thick squat neck, non-boggy nasal turbinates and no nasal drainage. CHEST: no respiratory distress, no retractions, or abdominal breathing. Lungs with decreased BS bilaterally and scattered wheezing. No egophony, ribs nontender to palpation. CVS: S1,S2 normal, regular rate and rhythm, no murmurs, rubs or gallops ABD: soft, nontender, protruberant with large pannus, +BS, no organomegaly EXT:1+ pitting edema in lower extremities bilaterally, posterior tibial and radial pulses 2+ bilaterally, no clubbing in fingers or toes. SKIN: pale, warm, dry, no rashes or erythema Neuro: alert, oriented to person, place and time. Rest of exam nonfocal, GCS 15. OTHER: rest of exam unremarkable DATA PFT from 02/2015 per interpretation spirometry was restrictive. There is no significant bronchodilator response. Lung volumes with normal TLC ruling out true restriction. There is evidence of air trapping. Patient unable complete DLCO. No prior PFT to compare. Echo 10/2020: The qualitative LV ejection fraction is [...] 04, 2012. Other: Interm History/Respiratory Symptoms Cough: only in am Hemoptysis: no Sinus Symptoms: runny Hospitalizations: 11-22-21 through 12-03-2021 then to [facility] 12-03-2021 through 12-14-2021, 12/27/2021through 01/03/2022 ED Trips: 12/26/2021 Triggers: exertion Nocturnal: sleeps with 2 pillows CPAP/BiPAP/O2: 3lpm o2 Flu Vaccine: 2020 Pneumovax: 2009 Prevnar: no COVID 19: no Mmrc Cat Question 02/13/2022 2:24 PM EDT - Filed by Tamar Adan LPN When do you become breathless? (4) I am too breathless to leave the house or I am breathless when dressing How frequently do you cough? (1) Do you have phlegm in your chest? (0) - I have no phlegm (mucus) in my chest Is your chest tight? (0) - My chest does not feel tight at all How breathless do you become when walking up a hill or steps? (5) - When I walk up a hill or oneflight of stairs I am very breathless How limited are you doing activities at home? (2) How confident are you leaving home with your lung condition? (1) How soundly do you sleep? (2) How much energy do you have? (0) - I have lots of energy Total MMRC Score (range: 0 - 4) 4 Total CAT Score (range: 0 - 40) 11 Assessment: 1.SOB_ multifactorial from copd, chf, morbid obesity, covid, deconditioning 2. COPD gold U class D smoking related, chronic bronchitic phenotype, recurrent flares over the past few months, MMRC 4, CAT 11 3. Chronic hypoxic respiratory failure - 3 L at rest/sleep, 4 L with exertion 4. covid 19 pneumonia 5. CHF pEF- mildly hypervolemic one xam 6. Morbid obesity Body mass index is 48.47 kg/m. 7. Physical deconditioning 8. rufina -refuses cpap 9. pAfib- in sinus rhythm today 10. Tobacco use hx- 2 ppd from age 13 until 58. Quit 2018 11. embolic cva on chronic coumadin Recommendations and Plans: pfts 6 min walk noc ox on [address] chest in1 Month so it will be about 3 months from her most recent imaging Change to trelegy and prn albuterol Inhaler technique teaching done today Weight management counseling done today Continue diuretics Nurse call after walk/noc ox and ct chest Follow up with provider in 6 months, in person, sooner if needed All the patient's and her grand daughter's questions and concerns were addressed to their apparent satisfaction I spent more than 50% of the 40 minute visit counseling and coordinating care. Jesus Bonilla MD Pulmonary Medicine, [address] [place] [address] documented in this encounter Nursing Notes * Tamar Adan LPN - 02/13/2022 2:24 PM EDT Pt here for evaluation of COPD, resp failure Interm History/Respiratory Symptoms Cough: only in am Hemoptysis: no Sinus Symptoms: runny Hospitalizations: 11-22-21 through 12-03-2021 then to [facility] 12-03-2021 through 12-14-2021, 12/27/2021through 01/03/2022 ED Trips: 12/26/2021 Triggers: exertion Nocturnal: sleeps with 2 pillows CPAP/BiPAP/O2: 3lpm o2 Flu Vaccine: 2020 Pneumovax: 2009 Prevnar: no COVID 19: no Mmrc Cat Question 02/13/2022 2:24 PM EDT - Filed by Tamar Adan LPN When do you become breathless? (4) I am too breathless to leave the house or I am breathless when dressing How frequently do you cough? (1) Do you have phlegm in your chest? (0) - I have no phlegm (mucus) in my chest Is your chest tight? (0) - My chest does not feel tight at all How breathless do you become when walking up a hill or steps? (5) - When I walk up a hill or one flight of stairs I am very breathless How limited are you doing activities at home? (2) How confident are you leaving home with your lung condition? (1) How soundly do you sleep? (2) How much energy do you have? (0) - I have lots of energy Total MMRC Score (range: 0 - 4) 4 Total CAT Score (range: 0 - 40) 11 documented in this encounter Plan of Treatment Upcoming Encounters Date Type Specialty Care Team Description 02/16/2022 Laboratory Laboratory Processing Gm, l Mobile Home Draw [address] [place] [address] 02/17/2022 [facility] [address] [facility] [place], [place] [address] 02/25/2022 Office Visit Otolaryngology Jazmine Whitehead PA-C [address] [place] [address] 03/16/2022 Imaging Radiology 03/24/2022 PulmDiagnostic Pulmonary Function [place], [facility] [address] [facility] [place] [address] 05/07/2022 PulmDiagnostic Pulmonary Function [place], Pft [address] [place], [place] [address] 08/21/2022 Office Visit Pulmonary Jesus Bonilla MD [address] [place] [address] Scheduled Orders Name Type Priority Associated Diagnoses Orde r Schedule SPIROMETRY B/A BRONCHODILATOR Procedures Routine COPD, group D, by GOLD 2017 classification ([facility]) Expected: 08/15/2022, Expires: 03/15/2023 LUNG VOLUMES (PLETHYSMOGRAPHY) Procedures Routine COPD, group D, by GOLD 2017 classification ([facility]) Expected: 08/15/2022, Expires: 03/15/2023 DIFFUSION CAPACITY (DLCO) Procedures Routine COPD, group D, by GOLD 2017 classification ([facility]) Expected: 08/15/2022, Expires: 03/15/2023 PULMONARY STRESS TESTING Procedures Routine Chronic hypoxemic respiratory failure (HCC) COPD, group D, by GOLD 2017 classification ([facility]) Expected: 08/15/2022, Expires: 03/15/2023 CT CHEST WO CONTRAST Medical Imaging Routine Pneumonia due to COVID-19 virus Expected: 03/15/2022, Expires: 03/15/2023 [id number], QN Lab Routine COPD, group D, by GOLD 2017 classification ([facility]) Expected: 02/14/2022, Expires: 03/15/2023 NOCTURNAL HOME OXIMETRY (OP) Procedures Routine Chronic hypoxemic respiratory failure (HCC) Chronic obstructive pulmonary disease, unspecified COPD type (HCC) Expected: 02/14/2022, Expires: 03/15/2023 Scheduled Procedures Name Priority Associated Diagnoses Date/Ti [...] respiratory failure (HCC)- Primary Chronic respiratory failure Chronic obstructive pulmonary disease, unspecified COPD type (HCC) Paroxysmal atrial fibrillation (HCC) Atrial fibrillation Morbid obesity due to excess calories (HCC) Obstructive sleep apnea Obstructive sleep apnea (adult) (pediatric) Pneumonia due to COVID-19 virus Chronic diastolic CHF (congestive heart failure) (HCC) Chronic diastolic heart failure Muscular deconditioning Muscular wasting and disuse atrophy, not elsewhere classified documented in this encounter Advance Directives Documents on File Type Date Recorded Patient Ramp Flight Attendant Expl 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 Advanced Directive 11/02/2011 12:00 AM Care Teams Ivf Embryologist Relationship Specialty Start Date End Date Roger Alexandra MD [address] [facility] [place] [address] PCP - General Family Medicine 12/29/19 documented as of this encounter
--- OUTSIDE RECORDS SUMMARY | 2023-07-25 04:42 | External Medical Summary | Summary of Care ---
Author Name Unknown Organization [facility] Address [place] [address] Care Team Providers Care It Communications Manager Name Role Phone Roger Alexandra MD Primary Care Provider [phone] Encounter Details Date Type Department Care Team Description 12/01/2021 Orders Only Pulmonary Medicine Vangie Meier [address] [place] [id number] Jesus Bonilla MD [address] [place] [address] Allergies Active Allergy Reactions Severity Noted Date [...] clinic 180 Tab 1 08/18/2021 Active Nystatin 600491 UNIT/GM External Powder (Nyamyc) apply to affected [...] Gm, l Mobile Home Draw [address] [facility] [id number] 02/17/2022 [facility] [address] [facility] [place] [address] 02/25/2022 Office Visit Otolaryngology Jazmine Whitehead PA-C [address] [place] [address] 03/16/2022 Imaging Radiology 03/24/2022 PulmDiagnostic Pulmonary Function [place], Pft [address] [place] [address] 05/07/2022 PulmDiagnostic Pulmonary Function [place], [address] [address] [place] [address] 08/21/2022 Office Visit Pulmonary Jesus Bonilla MD [address] [place] [id number] Scheduled Procedures Name Priority Associated Diagnoses Date/Ti [...] - GENERAL RAD (IMAGES ONLY,NO REPORT) Routine 12/01/2021 12:25 PM EST documented in this encounter Results * RADIOLOGY EXAM - GENERAL RAD (IMAGES ONLY,NO REPORT) (12/01/2021 12:25 PM EST) Specimen Narrative Scheduling, Silent - 02/14/2022 3:54 AM EDT This is an imaging study not interpreted or resulted by a [facility] or [facility] contracted radiologist. documented in this encounter Advance Directives Documents on File Type Date Recorded Patient Credit Card Control Clerk Expl 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 Advanced Directive 11/02/2011 12:00 AM Care Teams It Communications Manager Relationship Specialty Start Date End Date Roger Alexandra MD [address] [place] [address] PCP - General Family Medicine 12/29/19 documented as of this encounter
--- OUTSIDE RECORDS SUMMARY | 2023-07-25 04:42 | External Medical Summary | Summary of Care ---
Author Name Unknown Organization [place] [address] Care Team Providers Care Fiberglass Roller Name Role Phone Jeevan Mclean MD Primary Care Provider [phone] Reason for Visit * Reason Comments eRx-Medication Refill Encounter Details Date Type Department Care Team Description 02/06/2022 Refill Family Practice [facility] [address] [place] [id number] Jeevan Mclean MD [address] [place] [address] Allergies Active Allergy Reactions Severity Noted Date Comments Aspirin Unknown 12/12/2007 von Willebrand's disease Salicylates 03/01/2000 von Willebrand's disease documented as of this encounter (statuses as of 02/06/2022) Medications Medication Sig Dispensed Refills Start Date End Date Status OXYGEN 4 L during the day as needed and at bedtime 0 5 Active Disposable Brief X-LargeIndication s:Overactive bladder Attends [...] clinic 180 Tab 1 1 Active Nystatin 230706 UNIT/GM External Powder (Nyamyc) apply to affected [...] 150 mg before bedtime. 0 2 Active Budesonide-Formot jose martin Fumarate 80-4.5 MCG/ACT Inhalation Aerosol (Symbicort) Inhale by mouth 2 Puffs in the morning AND 2 Puffs before bedtime. 10.2 g 1 2 Active busPIRone HCl 15 MG Oral Tablet (Buspar)Indicatio ns:Take in the morning Take by mouth 15 mg once . 0 Active ProAir HFA 108 (90 Base) MCG/ACT Inhalation Aerosol SolutionIndicatio ns:Bronchitis, complicated Inhale by mouth 2 Puffs 4 times a day . 18 g 1 2 Active oxyCODONE-Acetami nophen 5-325 MG Oral Tablet (Percocet)Indicat ions:Ambulatory dysfunction Take by mouth 1 Tablet every 8 hours as needed for Pain, Breakthrough. Continuation from discharge script 60 Tablet 0 2 Active Furosemide 20 MG Oral Tablet (Lasix) Take by mouth 1 Tablet daily as needed (lower leg swelling). 30 Tablet 11 2 Active Mupirocin 2 % External Ointment (Bactroban) Apply topically to affected area 3 times a day for 14 days. To affected area for up to 14 days. 22 g 1 2 02/07/20 22 Active Isosorbide Mononitrate ER 30 MG Oral Tablet Extended Release 24 Hour (Imdur) take 1 tablet by mouth daily 30 Tablet 5 2 Active Isosorbide Mononitrate ER 30 MG Oral Tablet Extended Release 24 Hour (Imdur) take 1 tablet by mouth daily 30 Tab 5 1 02/07/20 22 Discontinued documented as of this encounter (statuses as of 02/06/2022) Active Problems Problem Noted Date History of [...] as of this encounter (statuses as of 02/06/2022) Resolved Problems Problem Noted Date Resolved Date [...] as of this encounter (statuses as of 02/06/2022) Immunizations Name Administration Dates Next Due H1N1 [...] encounter Miscellaneous Notes * Telephone Encounter - Mohit Ilene English, [facility] - 02/06/2022 3:13 PM EDT Signed Prescriptions: Disp Refills Isosorbide Mononitrate ER 30 MG Oral Table*30 Tab*5 Sig: take 1 tablet by mouth dailyAuthorizing Provider: JEEVAN MCLEAN User: KANDI MOHIT ROSE--- documented in this encounter Plan of Treatment Upcoming Encounters Date Type Specialty Care Team Description 02/13/2022 Office Visit Pulmonary Jesus Bonilla MD [address] [facility] [place] [address] 02/16/2022 Laboratory Laboratory Processing [facility] Mobile Home Draw [address] [place] [address] 02/17/2022 [facility] [address] [place] [address] 02/25/2022 Office Visit [facility]olaryngology [facility]mine Whitehead [facility] [address] [facility] [address] Scheduled Procedures Name Priority Associated Diagnoses Date/Ti [...] Documents on File Type Date Recorded Patient Health Care Attorney Expl 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 Directive 11/02/2011 12:00 AM Care Teams Fiberglass Roller Relationship Specialty Start Date End Date Jeevan Mclean MD [address] [place] [address] PCP - General Family Medicine 12/29/19 documented as of this encounter
--- OUTSIDE RECORDS SUMMARY | 2023-07-25 04:42 | External Medical Summary | Summary of Care ---
Author Name Unknown Organization [facility] Address [place] [address] Care Team Providers Care Manager Floral Name Role Phone Roger Alexandra MD Primary Care Provider [phone] [phone] Encounter Details Date Type Department Care Team Description 11/23/2021 Orders Only Pulmonary Medicine Vangie Meier [address] [place] [id number] Jesus Bonilla MD [address] [address] Allergies Active Allergy Reactions Severity Noted Date [...] clinic 180 Tab 1 08/18/2021 Active Nystatin 869017 UNIT/GM External Powder (Nyamyc) apply to affected [...] Gm, l Mobile Home Draw [address] [facility] [id number] 02/17/2022 [facility] 58 60 [facility] [place] [address] 02/25/2022 Office Visit Otolaryngology Jazmine Whitehead PA-C [address] [place] [address] 03/16/2022 Imaging Radiology 03/24/2022 PulmDiagnostic Pulmonary Function [place], Pft [address] [place] [address] 05/07/2022 PulmDiagnostic Pulmonary Function [place], Pft [address] [place] [address] 08/21/2022 Office Visit Pulmonary Jesus Bonilla MD [address] [place] [id number] Scheduled Procedures Name Priority Associated Diagnoses Date/Ti [...] - CT (IMAGES ONLY, NO REPORT) Routine 11/23/2021 12:00 PM EST documented in this encounter Results * RADIOLOGY EXAM - CT (IMAGES ONLY, NO REPORT) (11/23/2021 12:00 PM EST) Specimen Narrative Scheduling, Silent - 02/14/2022 3:46 AM EDT This is an imaging study not interpreted or resulted by a [facility] contracted radiologist. documented in this encounter Advance Directives Documents on File Type Date Recorded Patient Senior Center Manager Expl 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 Directive 11/02/2011 12:00 AM Care Teams Manager Floral Relationship Specialty Start Date End Date Roger Alexandra MD [address] [place] [address] PCP - General Family Medicine 12/29/19 documented as of this encounter
--- OUTSIDE RECORDS SUMMARY | 2023-07-25 04:43 | External Medical Summary | Summary of Care ---
Author Name Unknown Organization [facility] Address [place] [address] Care Team Providers Care Advanced Practice Nurse Psychotherapist Name Role Phone Roger Alexandra MD Primary Care Provider [phone] [phone] Reason for Visit * Reason Comments Dosage Adjustment Via Phone (anticoag Cl inic) Encounter Details Date Type Department Care Team Description 01/27/2022 Anticoagulation Pharmacy Call Center 58[address]60 [facility] [place] [address] [facility] 58 60 [facility] [place] [address] intermediate card tender current use 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* Allergies Active Allergy Reactions Severity Noted Date Comments Aspirin Unknown 12/12/2007 von Willebrand's disease Salicylates 03/01/2000 von Willebrand's disease documented as of this encounter (statuses as of 01/27/2022) Medications Medication Sig Dispensed Refills Start Date End Date Status OXYGEN 4 L during the day as needed and at bedtime 0 02/14/2015 Active Disposable Brief X-LargeIndications :Overactive bladder Attends X-Large Super Absorb Underwear 32 Each 2 03/18/2021 Active Vitamin D (Cholecalciferol) 25 MCG (1000 UT) Oral Capsule Take 1 Cap by mouth daily. 30 Cap 5 05/05/2021 Active Isosorbide Mononitrate ER 30 MG Oral Tablet Extended Release 24 Hour (Imdur) take 1 tablet by mouth daily 30 Tab 5 05/20/2021 Active Warfarin Sodium 5 MG Oral Tablet (Coumadin)Indicati ons:Paroxysmal atrial fibrillation (HCC) Take 1.5-2 Tabs by mouth daily. As directed by coumadin clinic 180 Tab 1 08/18/2021 Active Nystatin 893634 UNIT/GM External Powder (Nyamyc) apply to affected [...] 150 mg before bedtime. 0 01/17/2022 Active Budesonide-Formote rol Fumarate 80-4.5 MCG/ACT Inhalation [...] day . 18 g 1 01/23/2022 Active oxyCODONE-Acetamin ophen 5-325 MG Oral Tablet (Percocet)Indicati ons:Ambulatory dysfunction Take by mouth 1 Tablet every 8 hours as needed for Pain, Breakthrough. Continuation from discharge script 60 Tablet 0 01/23/2022 Active Furosemide 20 MG Oral Tablet (Lasix) Take by mouth 1 Tablet daily as needed (lower leg swelling). 30 Tablet 11 01/23/2022 Active Mupirocin 2 % External Ointment (Bactroban) Apply topically to affected area 3 times a day for 14 days. To affected area for up to 14 days. 22 g 1 01/23/2022 02/06/2022 Active documented as of this encounter (statuses as of 01/27/2022) Active Problems Problem Noted Date History of [...] as of this encounter (statuses as of 01/27/2022) Resolved Problems Problem Noted Date Resolved Date [...] as of this encounter (statuses as of 01/27/2022) Immunizations Name Administration Dates Next Due H1N1 [...] this encounter Progress Notes * Luis Nava, Blu - 01/27/2022 8:32 AM EDT Contacts Type Contact Phone 01/27/2022 08:30 AM EDT Phone (Outgoing) Kimberly Kendall (Self) [phone] (M) Left Message Advised patient to contact Anticoagulation Clinic if any unusual bruising or bleeding, recent illness, changes in medication, or questions/concerns. PT/INR results, Coumadin dose instructions, and next PT/INR date communicated as noted by Pharmacist: Yes Luis Nava CPhT 01/27/2022, 8:32 AM * Kim Mercado RPh - 01/27/2022 8:00 AM EDT Coumadin Clinic (region specific) Current Warfarin Dose As of 01/27/2022 Warfarin maintenance plan: 5 mg (5 mg x 1) every day INR Result As of 01/27/2022 INR goal: 2.0-3.0 INR used for dosin.52 (01/26/2022) Warfarin Plan As of 01/27/2022 Full warfarin instructions: 5 mg every day No change documented: Kim Mercado RPh Next INR check: 02/16/2022 Repeat PT/INR in 3 week(s) Weekly dose: not changed Additional Dosing Information: Description [facility] Tech to contact patient with dose instructions as noted. Kim Mercado RPh 01/27/2022, 8:01 AM documented in this encounter Plan of Treatment Upcoming Encounters Date Type Specialty Care Team Description 02/16/2022 Laboratory Laboratory Processing [facility] [place] [facility] Mobile Home Draw [address] [facility] [place] [address] 02/17/2022 Anticoagulation Pharmacy [facility] 58 60 [facility] [place] [address] 07/24/2022 Office Visit Pulmonary Jesus Bonilla MD [address] [place] [address] Scheduled Procedures Name Priority Associated Diagnoses Date/Ti [...] as of this encounter Visit Diagnoses Diagnosis intermediate card tender current use 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- Primary documented in this encounter Advance Directives Documents on File Type Date Recorded Patient Boring Machine Operator Horizontal Expl 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 Advanced Directive 11/02/2011 12:00 AM Care Teams Advanced Practice Nurse Psychotherapist Relationship Specialty Start Date End Date Roger Alexandra MD [address] [place] [address] [place] [address] PCP - General Family Medicine 12/29/19 documented as of this encounter
--- OUTSIDE RECORDS SUMMARY | 2023-07-25 04:43 | External Medical Summary | Summary of Care ---
Author Name Unknown Organization [place] [address] Care Team Providers Care Stock Order Lister Name Role Phone Jeevan Mclean MD Primary Care Provider [phone] [phone] Reason for Visit * Reason Onset Date Comments Medication Refill 01/21/2022 Encounter Details Date Type Department Care Team Description 01/21/2022 Refill Family Medicine [address] [phone] [place], Angelique Gillis, RN [address] [place] [address] [place] [address] COPD, group B, by GOLD 2017 classification ([facility])* Allergies Active Allergy Reactions Severity Noted Date Comments Aspirin Unknown 12/12/2007 von Willebrand's disease Salicylates 03/01/2000 von Willebrand's disease documented as of this encounter (statuses as of 01/22/2022) Medications Medication Sig Dispensed Refills Start Date End Date Status OXYGEN 4 L during the day as needed and at bedtime 0 02/14/2015 Active Acetaminophen (TYLENOL) 325 MG CAPS Take by mouth. 0 Active Albuterol Sulfate (PROAIR HFA) 108 (90 Base) MCG/ACT AERSIndications:B ronchitis, complicated Inhale 2 Puffs by mouth 4 times a day. 18 g 1 03/26/2020 Active Albuterol Sulfate (2.5 MG/3ML) 0.083% Inhalation Nebulization Solution (PROVENTIL)Indica tions:Bronchitis, complicated,COPD, severe (HCC) Inhale 1 Vial via nebulizer every 4 hours as needed for Wheezing. 20 mL 1 08/23/2020 Active Additional Information Patient taking differently: 2.5 mg Nebulizer Q4H PRN, Wheezing, Does not use-makes her "too nervous", Reported on 01/21/2022 Furosemide 20 MG Oral Tablet (Lasix) take 1 tablet by mouth once daily if needed (3LB WEIGHT GAIN OR LEG SWELLING) 30 Tab 2 02/09/2021 Active Disposable Brief X-LargeIndication s:Overactive bladder Attends X-Large Super Absorb Underwear 32 Each 2 03/18/2021 Active Vitamin D3 1.25 MG (98427 UT) Oral CapsuleIndication s:Vitamin D deficiency Take 1 Cap by mouth once a week. 4 Cap 3 05/02/2021 Active Vitamin D (Cholecalciferol) 25 MCG (1000 UT) Oral Capsule Take 1 Cap by mouth daily. 30 Cap 5 05/05/2021 Active Isosorbide Mononitrate ER 30 MG Oral Tablet Extended Release 24 Hour (Imdur) take 1 tablet by mouth daily 30 Tab 5 05/20/2021 Active Arnuity Ellipta 100 MCG/ACT Inhalation Aerosol Powder Breath Activated (fluticasone Furoate) DAILY 0 05/25/2021 Active Warfarin Sodium 5 MG Oral Tablet (Coumadin)Indicat ions:Paroxysmal atrial fibrillation (HCC) Take 1.5-2 Tabs by mouth daily. As directed by coumadin clinic 180 Tab 1 08/18/2021 Active Nystatin 110159 UNIT/GM External Powder (Nyamyc) apply to affected area twice a day 15 g 1 11/04/2021 Active LORazepam 0.5 MG Oral Tablet (Ativan) Take by mouth 1 Tablet as needed in the morning AND 1 Tablet as needed at noon AND 1 Tablet as needed in the evening for Anxiety. 90 Tablet 1 12/15/2021 Active traMADol HCl 100 MG Oral TabletIndications :Chronic bilateral low back pain without sciatica Take by mouth 100 mg every 8 hours as needed for Pain, Moderate or Pain, Severe. 90 Tablet 0 12/17/2021 Active Additional Information Patient taking differently: 100 mg Oral Q8H PRN, Pain, Moderate, Pain, Severe, Not using, Reported on 01/21/2022 Mirtazapine 7.5 MG Oral Tablet (Remeron) Take [...] DAILY, (No instructions reported), Reported on 01/21/2022 oxyCODONE-Acetami nophen 5-325 MG Oral Tablet (Percocet) Take by mouth 1 Tablet every 4 hours as needed . Gave her 20 tabs at discharge 01/17/22 0 Active Budesonide-Formot jose martin Fumarate 80-4.5 MCG/ACT Inhalation Aerosol (Symbicort) Inhale by mouth 2 Puffs in the morning AND 2 Puffs before bedtime. 0 01/21/2022 2 Discontinue d(Refill) documented as of this encounter (statuses as of 01/22/2022) Active Problems Problem Noted Date History of [...] as of this encounter (statuses as of 01/22/2022) Resolved Problems Problem Noted Date Resolved Date [...] as of this encounter (statuses as of 01/22/2022) Immunizations Name Administration Dates Next Due H1N1 [...] Telephone Encounter - Jeevan Mclean MD - 01/21/2022 4:54 PM EST Refused Prescriptions: Disp Refills Budesonide-Formoterol Fumarate 80-4.5 MCG/*10.2 g 5 Sig: Inhale by mouth 2 Puffs in the morning AND 2 Puffs before bedtime. Refused By: JEEVAN MCLEAN Reason for Refusal: Other (comment below) oxyCODONE-Acetaminophen 5-325 MG Oral Tabl* Sig: Take by mouth 1 Tablet every 4 hours as needed for Pain, Severe. Gave her 20 tabs at discharge 01/17/22 Refused By: JEEVAN MCLEAN Reason for Refusal: Contraindicated Reason for Refusal Comment: hx of percocet abuse * Telephone Encounter - Angelique Swain RN - 01/21/2022 1:58 PM EST Kimberly is asking for more Percocet. They gave her 20 tablets at discharge on 01/17. She only has 2 tablets remaining. She will see you on Wednesday01/13/22. She tells me she is NOT using the Tramadol. She also needs Arnuity reordered. Thanks, Angelique Swain RN [facility] [phone] documented in this encounter Plan of Treatment Upcoming Encounters Date Type Specialty Care Team Description 01/23/2022 Office Visit Family Medicine [facility] [place] [address] 01/26/2022 Laboratory [place] [facility] [place] [facility] Mobile Home Draw [address] [place], [place] [phone] 01/27/2022 [facility] [address] 07/24/2022 Office Visit Pulmonary Jesus Bonilla MD [address] [facility] [id number] Scheduled Procedures Name Priority Associated Diagnoses Date/Ti [...] ASSESSMENT COMPLETED IN PAST YEAR FOR COPD 12/26/2022 12/26/2021 DIABETES SCREEN EVERY 3 YRS-AGE 45 AND [...] this encounter Visit Diagnoses Diagnosis COPD, group B, by GOLD 2017 classification (HCC)- Primary documented in this encounter Advance Directives Documents on File Type Date Recorded Patient Stack Attendant Expl 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 Advanced Directive 11/02/2011 12:00 AM Care Teams Stock Order Lister Relationship Specialty Start Date End Date Jeevan Mclean MD [address] [place] [address] PCP - General Family Medicine 12/29/19 documented as of this encounter
--- OUTSIDE RECORDS SUMMARY | 2023-07-25 04:43 | External Medical Summary ---
Author Name Unknown Address Unknown Organization [facility] [address] [place] [address] Laboratory Report Ordering Provider Test Date Status SUMAN STANFORD 01/26/2022 11:28:00 Final Observation Date Value Abnormality Reference (Units ) Status PT 01/26/2022 11:28:00 27.1 Above high normal 11 .5-14.6 (seconds) Final INR 01/26/2022 11:28:00 2.52 Above high normal 0. 84-1.14 Final Performing Location [facility] [place] [address] [place] [address]
--- OUTSIDE RECORDS SUMMARY | 2023-07-25 04:43 | External Medical Summary | Summary of Care ---
Author Name Unknown Organization [place] [address] Care Team Providers Care Energy Specialist Name Role Phone Roger Alexandra MD Primary Care Provider [phone] [phone] Reason for Visit * Reason Onset Date Comments case management 02/04/2022 Encounter Details Date Type Department Care Team Description 02/04/2022 Career Services Assistant Telephone Care Coordination [address] [place] [address] Vandana Bermeo, fisheries management biologist Allergies Active Allergy Reactions Severity Noted Date Comments Aspirin Unknown 12/12/2007 von Willebrand's disease Salicylates 03/01/2000 von Willebrand's disease documented as of this encounter (statuses as of 02/04/2022) Medications Medication Sig Dispensed Refills Start Date [...] clinic 180 Tab 1 08/18/2021 Active Nystatin 803576 UNIT/GM External Powder (Nyamyc) apply to affected [...] as of this encounter (statuses as of 02/04/2022) Active Problems Problem Noted Date History of [...] as of this encounter (statuses as of 02/04/2022) Resolved Problems Problem Noted Date Resolved Date [...] as of this encounter (statuses as of 02/04/2022) Immunizations Name Administration Dates Next Due H1N1 [...] encounter Miscellaneous Notes * Telephone Encounter - Vandana Bermeo RN - 02/04/2022 1:31 PM EDT Spoke to patient. HH was out today and said her wound looks ok. She was asking about her f/u with wound care and no appt was scheduled at this time. Otherwise pt is doing well and denied any concerns. Referral being sent to [facility] wound clinic. Laura, pt's grand-daughter is her medicare coordinator and takes her to all of her appts. Number provided to her to call to schedule. Explained/reinforced role of case making machine operator. Encouraged to call with any issues or concerns. Gave direct phone number and contact information. documented in this encounter Plan of Treatment Upcoming Encounters Date Type Specialty Care Team Description 02/13/2022 Office Visit Pulmonary Jesus Bonilla MD [address] [place] [address] 02/16/2022 Laboratory Laboratory Processing [facility] [place], [facility] Mobile Home Draw [address] [place] [address] 02/17/2022 [facility] 58 60 [facility] [address] 02/25/2022 Office Visit Otolaryngology Jazmine Whitehead PA-C 132 [facility] [place] [address] Scheduled Procedures Name Priority [...] Documents on File Type Date Recorded Patient Income Tax Expert Expl 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 Directive 11/02/2011 12:00 AM Care Teams Energy Specialist Relationship Specialty Start Date End Date Roger Alexandra MD [address] [facility] [place] [address] PCP - General Family Medicine 12/29/19 documented as of this encounter
--- OUTSIDE RECORDS SUMMARY | 2023-07-25 04:43 | External Medical Summary | Summary of Care ---
Author Name Unknown Organization [place] [address] Care Team Providers Care Heel Varnisher Name Role Phone Roger Alexandra MD Primary Care Provider [phone] [phone] Reason for Visit * Reason Onset Date Comments Appointment 01/28/2022 Encounter Details Date Type Department Care Team Description 01/28/2022 Telephone Audiology [facility] [address] [place] [address] Services, Scheduling [address] [place] [address] Appointment Allergies Active Allergy Reactions Severity Noted Date Comments Aspirin Unknown 12/12/2007 von Willebrand's disease Salicylates 03/01/2000 von Willebrand's disease documented as of this encounter (statuses as of 01/28/2022) Medications Medication Sig Dispensed Refills Start Date [...] clinic 180 Tab 1 08/18/2021 Active Nystatin 630344 UNIT/GM External Powder (Nyamyc) apply to affected [...] as of this encounter (statuses as of 01/28/2022) Active Problems Problem Noted Date History of [...] as of this encounter (statuses as of 01/28/2022) Resolved Problems Problem Noted Date Resolved Date [...] as of this encounter (statuses as of 01/28/2022) Immunizations Name Administration Dates Next Due H1N1 [...] encounter Miscellaneous Notes * Telephone Encounter - Sakina Watts, RUFINA - 01/28/2022 2:43 PM EDT Pt was admitted in the hospital when the appt was to occur. Please advise on a date and time for audio and ent appt on a Wednesday in [facility]. Pt can be reached at the [phone]. Thank you, Sakina documented in this encounter Plan of Treatment Upcoming Encounters Date Type Specialty Care Team Description 02/16/2022 Laboratory Laboratory Processing [facility], [facility] Mobile Home Draw [address] [place], [place] [phone] 02/17/2022 [facility] 58 60 [facility] [place] [address] 07/24/2022 Office Visit Pulmonary Jesus Bonilla MD [address] [place] [address] Scheduled Procedures Name Priority Associated Diagnoses Date/Ti [...] Documents on File Type Date Recorded Patient Ditching Machine Operator Expl 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 Advanced Directive 11/02/2011 12:00 AM Care Teams Heel Varnisher Relationship Specialty Start Date End Date Roger Alexandra MD 132 [facility] [place] [address] PCP - General Family Medicine 12/29/19 documented as of this encounter
--- OUTSIDE RECORDS SUMMARY | 2023-07-25 04:43 | External Medical Summary | Summary of Care ---
Author Name Unknown Organization [place] [address] Care Team Providers Care Assistant Food Service Manager Name Role Phone Roger Alexandra MD Primary Care Provider [phone] [phone] Reason for Visit * Reason Onset Date Comments Appointment 01/28/2022 Encounter Details Date Type Department Care Team Description 01/28/2022 Telephone Audiology [facility] [address] [place] [address] Services, Scheduling [address] [place] [address] Appointment Allergies Active Allergy Reactions Severity Noted Date Comments Aspirin Unknown 12/12/2007 von Willebrand's disease Salicylates 03/01/2000 von Willebrand's disease documented as of this encounter (statuses as of 01/29/2022) Medications Medication Sig Dispensed Refills Start Date [...] clinic 180 Tab 1 08/18/2021 Active Nystatin 031518 UNIT/GM External Powder (Nyamyc) apply to affected [...] as of this encounter (statuses as of 01/29/2022) Active Problems Problem Noted Date History of [...] as of this encounter (statuses as of 01/29/2022) Resolved Problems Problem Noted Date Resolved Date [...] as of this encounter (statuses as of 01/29/2022) Immunizations Name Administration Dates Next Due H1N1 [...] Miscellaneous Notes * Telephone Encounter - RUFINA Perrin - 01/29/2022 8:45 AM EDT Left message to call ENT back Thanks Vandana * Telephone Encounter - RUFINA Sagastume - 01/28/2022 2:43 PM EDT Pt was admitted in the hospital when the appt was to occur. Please advise on a date and time for audio and ent appt on a Wednesday in [facility]. Pt can be reached at the [phone]. Thank you, Sakina documented in this encounter Plan of Treatment Upcoming Encounters Date Type Specialty Care Team Description 02/16/2022 Laboratory Laboratory Processing [facility] [place] [facility] Mobile Home Draw [address] [place], [place] [phone] 02/17/2022 [facility] 60 [facility] [place] [address] 07/24/2022 Office Visit Pulmonary [facility] [address] [facility] [address] Scheduled Procedures Name Priority Associated Diagnoses Date/Ti [...] Documents on File Type Date Recorded Patient Supply Specialist Expl 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 Directive 11/02/2011 12:00 AM Care Teams Assistant Food Service Manager Relationship Specialty Start Date End Date Roger Alexandra MD 132 [facility] [place] [address] PCP - General Family Medicine 12/29/19 documented as of this encounter
--- OUTSIDE RECORDS SUMMARY | 2023-07-25 04:43 | External Medical Summary | Summary of Care ---
Author Name Unknown Organization [place] [address] Care Team Providers Care Stitch Bonding Machine Drawer In Name Role Phone Roger Alexandra MD Primary Care Provider [phone] Reason for Visit * Reason Onset Date Comments Appointment 01/28/2022 Encounter Details Date Type Department Care Team Description 01/28/2022 Telephone Audiology [facility] [address] [place] [address] Services, Scheduling [address] [place] [address] Appointment Allergies Active Allergy Reactions Severity Noted [...] clinic 180 Tab 1 08/18/2021 Active Nystatin 436906 UNIT/GM External Powder (Nyamyc) apply to affected [...] and ent appt on a Wednesday in [facility]. Pt can be reached at the [phone]. Thank you, Sakina documented in this encounter Plan of Treatment Upcoming Encounters Date Type Specialty Care Team Description 02/16/2022 Laboratory Laboratory Processing [facility] [place] Mobile Home Draw [address] [place], [place] [phone] 02/17/2022 [facility] 58 60 [place] [address] 07/24/2022 Office Visit Pulmonary Jesus Bonilla MD [address] [place] [address] Scheduled Procedures Name Priority Associated Diagnoses Date/Ti [...] on File Type Date Recorded Patient Supervisor Pre Wave Expl 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 Advanced Directive 11/02/2011 12:00 AM Care Teams Stitch Bonding Machine Drawer In Relationship Specialty Start Date End Date Roger Alexandra MD 132 [facility] [place] [address] PCP - General Family Medicine 12/29/19 documented as of this encounter
--- OUTSIDE RECORDS SUMMARY | 2023-07-25 04:43 | External Medical Summary | Summary of Care ---
Author Name Unknown Organization [facility] Address [place] [address] Care Team Providers Care Director Of Vital Statistics Name Role Phone Roger Alexandra MD Primary Care Provider [phone] [phone] Encounter Details Date Type Department Care Team Description 01/16/2022 Result Scan Unspecified Department <No scans attached> Allergies Active Allergy Reactions [...] clinic 180 Tab 1 08/18/2021 Active Nystatin 265937 UNIT/GM External Powder (Nyamyc) apply to affected [...] DAILY, (No instructions reported), Reported on 01/21/2022 documented as of this encounter (statuses as [...] Care Team Description 02/16/2022 Laboratory [place] [facility] [place] [facility] Home Draw [address] [place] [address] 02/17/2022 [facility] [address] [facility] [address] 07/24[facility]2022 Office Visit Pulmonary Jesus Bonilla MD [address] [facility] [place] [id number] Scheduled Procedures Name Priority Associated Diagnoses Date/Ti [...] Procedure Name Priority Date/Time Associated Diagnosis Comments OUTSIDE LAB RESULTS 01/16/2022 documented in this encounter Results * OUTSIDE LAB RESULTS (01/16/2022) Specimen Narrative documented in this encounter Advance Directives Documents on File Type Date Recorded Patient Rabbet Operator Expl 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 11/02/2011 12:00 AM Care Teams Director Of Vital Statistics Relationship Specialty Start Date End Date Roger Alexandra MD [address] [facility] [place] [address] PCP - General Family Medicine 12/29/19 documented as of this encounter
--- OUTSIDE RECORDS SUMMARY | 2023-07-25 04:43 | External Medical Summary | Summary of Care ---
Author Name Unknown Organization [place] [address] Care Team Providers Care Slitter Scorer Cut Off Operator Name Role Phone Roger Alexandra MD Primary Care Provider [phone] [phone] Encounter Details Date Type Department Care Team Description 01/17/[address] [facility] [address] [facility] [place] [address] Roger Alexandra MD [address] [place] [address] <No scans attached> Allergies Active Allergy Reactions [...] Sulfate (PROAIR HFA) 108 (90 Base) MCG/ACT AERSIndications:Bro nchitis, complicated Inhale 2 Puffs by mouth 4 times a day. 18 g 1 03/26/2020 Active Albuterol Sulfate (2.5 MG/3ML) 0.083% Inhalation Nebulization Solution (PROVENTIL)Indicati ons:Bronchitis, complicated,COPD, severe (HCC) Inhale 1 Vial via [...] 30 Tab 2 02/09/2021 Active Disposable Brief X-LargeIndications: Overactive bladder Attends X-Large Super Absorb Underwear 32 Each 2 03/18/2021 Active Vitamin D3 1.25 MG (50725 UT) Oral CapsuleIndications: Vitamin D deficiency Take 1 Cap by mouth [...] clinic 180 Tab 1 08/18/2021 Active Nystatin 224705 UNIT/GM External Powder (Nyamyc) apply to affected area twice a day 15 g 1 11/04/2021 Active LORazepam 0.5 MG Oral Tablet (Ativan) Take by mouth 1 Tablet as needed in the morning AND 1 Tablet as needed at noon AND 1 Tablet as needed in the evening for Anxiety. 90 Tablet 1 12/15/2021 Active traMADol HCl 100 MG Oral TabletIndications:C [...] Team Description 01/23/2022 Office Visit Family Medicine Roger Alexandra MD [address] [place] [address] 01/26/2022 Laboratory Laboratory Processing [facility], [facility] Mobile Home Draw [address] [place] [address] 01/27/2022 [facility] 60 [facility] [place] [address] 07/24/2022 Office Visit Pulmonary Jesus Bonilla MD [address] [place] [address] Scheduled Procedures Name Priority Associated Diagnoses Date/Ti [...] Documents on File Type Date Recorded Patient Scuba Diving Teacher Expl 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 Advanced Directive 11/02/2011 12:00 AM Care Teams Slitter Scorer Cut Off Operator Relationship Specialty Start Date End Date Roger Alexandra MD [address] [facility] [place] [address] PCP - General Family Medicine 12/29/19 documented as of this encounter
--- OUTSIDE RECORDS SUMMARY | 2023-07-25 04:43 | External Medical Summary | Summary of Care ---
Author Name Unknown Organization [place] [address] Care Team Providers Care Lens Grinder Rough Name Role Phone Roger Alexandra MD Primary Care Provider [phone] Reason for Visit * Reason Onset Date Comments Hospital Follow-Up Discharged [facility] Follow-Up 01/23/2022 Encounter Details Date Type Department Care Team Description 01/23/2022 Office Visit [facility] [address] [place] [address] Roger Alexandra MD [address] [facility] [place] [address] Hospital discharge follow-up*; COPD, group B, by GOLD 2017 classification (HCC); Chronic hypoxemic respiratory failure (HCC); Acquired hypothyroidism; Non compliance w medication regimen; SIMA (generalized anxiety disorder); History of narcotic addiction (HCC); Moderate episode of recurrent major depressive disorder ([facility]); PTSD (post-traumatic stress disorder); History of multiple strokes; Morbid obesity due to excess calories ([facility]); Grade I diastolic dysfunction; Paroxysmal atrial fibrillation (HCC); Obstructive sleep apnea; Oxygen dependent; Bronchitis, complicated; Ambulatory dysfunction Allergies Active Allergy Reactions Severity Noted Date Comments Aspirin Unknown 12/12/2007 von Willebrand's disease Salicylates 03/01/2000 von Willebrand's disease documented as of this encounter (statuses as of 01/23/2022) Medications Medication Sig Dispensed Refills Start Date [...] clinic 180 Tab 1 08/18/2021 Active Nystatin 797880 UNIT/GM External Powder (Nyamyc) apply to affected [...] day . 18 g 1 01/23/2022 Active oxyCODONE-Acetami nophen 5-325 MG Oral Tablet [...] to 14 days. 22 g 1 01/23/2022 2 Active Acetaminophen (TYLENOL) 325 MG CAPS Take by mouth. 0 2 Discontinue d(Medicatio n List Clean Up) Albuterol Sulfate (PROAIR HFA) 108 (90 Base) MCG/ACT AERSIndications:B ronchitis, complicated Inhale 2 Puffs by mouth 4 times a day. 18 g 1 03/26/2020 2 Discontinue d(Medicatio n List Clean Up) Albuterol Sulfate (2.5 MG/3ML) 0.083% Inhalation Nebulization Solution (PROVENTIL)Indica tions:Bronchitis, complicated,COPD, severe (HCC) Inhale 1 Vial via nebulizer every 4 hours as needed for Wheezing. 20 mL 1 08/23/2020 2 Discontinue d(Medicatio n List Clean Up) Furosemide 20 MG Oral Tablet (Lasix) take 1 tablet by mouth once daily if needed (3LB WEIGHT GAIN OR LEG SWELLING) 30 Tab 2 02/09/2021 2 Discontinue d(Medicatio n List Clean Up) Vitamin D3 1.25 MG (11440 UT) Oral CapsuleIndication s:Vitamin D deficiency Take 1 Cap by mouth once a week. 4 Cap 3 05/02/2021 2 Discontinue d(Medicatio n List Clean Up) Arnuity Ellipta 100 MCG/ACT Inhalation Aerosol Powder Breath Activated (fluticasone Furoate) DAILY 0 05/25/2021 2 Discontinue d(Medicatio n List Clean Up) traMADol HCl 100 MG Oral TabletIndications :Chronic bilateral low back pain without sciatica Take by mouth 100 mg every 8 hours as needed for Pain, Moderate or Pain, Severe. 90 Tablet 0 12/17/2021 2 Discontinue d(Medicatio n List Clean Up) oxyCODONE-Acetami nophen 5-325 MG Oral Tablet (Percocet) Take by mouth 1 Tablet every 4 hours as needed . Gave her 20 tabs at discharge 01/17/22 0 2 Discontinue d(Refill) documented as of this encounter (statuses as of 01/23/2022) Active Problems Problem Noted Date History of [...] as of this encounter (statuses as of 01/23/2022) Resolved Problems Problem Noted Date Resolved Date [...] as of this encounter (statuses as of 01/23/2022) Immunizations Name Administration Dates Next Due H1N1 [...] Sign Reading Time Taken Comments Blood Pressure 114/84 01/23/2022 11:41 AM EST Pulse 101 01/23/2022 11:41 AM EST Temperature - - Respiratory Rate - - Oxygen Saturation 95% 01/23/2022 11:41 AM EST with 4L oxygen Inhaled Oxygen Concentration - - Weight - - Height - - Body Mass Index - - documented in this encounter Progress Notes * Roger Alexandra MD - 01/23/2022 11:57 AM EST SUBJECTIVE: Kimberly Kendall is a 61 year old female. Chief Complaint Patient presents with Hospital Follow-Up Discharged from [facility] Hospital Follow-Up HPI: This is a morbidly obese wheelchair bound female with chronic respiratory failure who comes in today accompanied by her daughter for a transition of care visit. She was recently hospitalized at [facility] for acute COPD exacerbation and covid-19 virus. She slowly improved and was eventually able to be discharged to [facility] where she continued rehab. She continues to suffer from a lot of lower back and hip pain. Her respiratory status is back to baseline. She does have a large irritated roundscab on her left arm that has been bleeding at times. Patient Active Problem List Diagnosis Code Irritable bowel syndrome with diarrhea K58.0 SIMA (generalized anxiety disorder) F41.1 Obstructive sleep apnea G47.33 Von Willebrand disease ([facility]) D68.0 Idiopathic cardiomyopathy ([facility]) I42.8 Acquired hypothyroidism E03.9 Oxygen dependent Z99.81 Moderate episode of recurrent major depressive disorder (HCC) F33.1 Morbid obesity due to excess calories ([facility]) E66.01 Non compliance w medication regimen Z91.14 Chronic bilateral low back pain without sciatica M54.50, G89.29 Paroxysmal atrial fibrillation (HCC) I48.0 Drug-seeking behavior Z76.5 History of multiple strokes Z86.73 Grade I diastolic dysfunction I51.89 PTSD (post-traumatic stress disorder) F43.10 COPD, group B, by GOLD 2017 classification ([facility]) J44.9 Chronic hypoxemic respiratory failure ([facility]) J96.11 History of narcotic addiction ([facility]) F11.21 Current Outpatient Medications Medication Sig Dispense Refill OXYGEN 4 L during the day as needed and at bedtime Vitamin D (Cholecalciferol) 25 MCG (1000 UT) Oral Capsule Take 1 Cap by mouth daily. 30 Cap 5 Isosorbide Mononitrate ER 30 MG Oral Tablet Extended Release 24 Hour (Imdur) take 1 tablet by mouth daily 30 Tab 5 Warfarin Sodium 5 MG Oral Tablet (Coumadin) Take 1.5-2 Tabs by mouth daily. As directed by coumadin clinic 180 Tab 1 Nystatin 129197 UNIT/GM External Powder [place] apply to affected area twice a day [...] times a day . 18 g 1 oxyCODONE-Acetaminophen 5-325 MG Oral Tablet (Percocet) Take by mouth 1 Tablet every 8 hours asneeded for Pain, Breakthrough. Continuation from discharge script 60 Tablet 0 Furosemide 20 MG Oral Tablet (Lasix) Take by mouth 1 Tablet daily as needed (lower leg swelling). 30 Tablet 11 Disposable Brief X-Large Attends X-Large Super Absorb Underwear 32 Each 2 No current facility-administered medications for this visit. Allergy: Review of patient's allergies indicates: Allergen Reactions Aspirin Unknown von Willebrand's disease Salicylates von Willebrand's disease OBJECTIVE: BP 114/84 | Pulse 101 | SpO2 95% Comment: with 4L oxygen Gen: obese, wheelchair bound Skin: open lesion on left forearm with varying degrees of scabbing; no surrounding erythema or purulent drainage Lungs: breath sounds diminished bilaterally due to poor effort; no rhonchi or wheeze Heart: rrr, no mrg Ext: 1+ pitting edema to the mid calf ASSESSMENT AND PLAN: (Z09) Hospital discharge follow-up (primary encounter diagnosis) Plan: DISCH MED RECON CUR MED LIS (J44.9) COPD, group B, by GOLD 2017 classification ([facility]) Plan: continue home inhalers (J96.11) Chronic hypoxemic respiratory failure ([facility]) Plan: continue oxygen supplementation (E03.9) Acquired hypothyroidism Plan: stable (Z91.14) Non compliance w medication regimen Plan: encouraged compliance (F41.1) SIMA (generalized anxiety disorder) Plan: follows with psychiatry (F11.21) History of narcotic addiction ([facility]) Plan: I am willing to overlook her past drug problems and have given her a short script of opiate pain medication as I understand she has severe back and hip pain (F33.1) Moderate episode of recurrent major depressive disorder ([facility]) Plan: stable (F43.10) PTSD (post-traumatic stress disorder) Plan: stable (Z86.73) History of multiple strokes Plan: noted (E66.01) Morbid obesity due to excess calories ([facility]) Plan: noted (I51.89) Grade I diastolic dysfunction Plan: noted (I48.0) Paroxysmal atrial fibrillation ([facility]) Plan: stable (G47.33) Obstructive sleep apnea Plan: stable (Z99.81) Oxygen dependent Plan: stable (J40) Bronchitis, complicated Plan: ProAir HFA 108 (90 Base) MCG/ACT Inhalation Aerosol Solution (R26.2) Ambulatory dysfunction Plan: oxyCODONE-Acetaminophen 5-325 MG Oral Tablet (Percocet) Follow up as needed. No other complaints were offered at this time. Roger Alexandra MD documented in this encounter Plan of Treatment Upcoming Encounters Date Type Specialty Care Team Description 01/26/2022 Laboratory [facility] Mobile [facility] Draw [address] [facility], [place] [address] 01/27/2022 [facility] [address] 60 [facility] [place] [address] 07/24/2022 Office Visit Pulmonary Jesus Bonilla MD [address] [place] [address] Scheduled Procedures Name Priority Associated Diagnoses Date/Ti [...] Hospital discharge follow-up- Primary Other follow-up examination COPD, group B, by GOLD 2017 classification (HCC) Chronic hypoxemic respiratory failure (HCC) Chronic respiratory failure Acquired hypothyroidism Unspecified hypothyroidism Non compliance w medication regimen Personal history of noncompliance with medical treatment, presenting hazards to health SIMA (generalized anxiety disorder) Generalized anxiety disorder History of narcotic addiction (HCC) Opioid type dependence, in remission Moderate episode of recurrent major depressive disorder (HCC) PTSD (post-traumatic stress disorder) Posttraumatic stress disorder History of multiple strokes Morbid obesity due to excess calories (HCC) Grade I diastolic dysfunction Paroxysmal atrial fibrillation (HCC) Atrial fibrillation Obstructive sleep apnea Obstructive sleep apnea (adult) (pediatric) Oxygen dependent Dependence on supplemental oxygen Bronchitis, complicated Bronchitis, not specified as acute or chronic Ambulatory dysfunction documented in this encounter Advance Directives Documents on File Type Date Recorded Patient Deck Hand Expl 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 Advanced Directive 11/02/2011 12:00 AM Care Teams Lens Grinder Rough Relationship Specialty Start Date End Date Roger Alexandra MD [address] [facility] [place] [address] PCP - General Family Medicine 12/29/19 documented as of this encounter"
--- OUTSIDE RECORDS SUMMARY | 2023-07-25 04:43 | External Medical Summary | Summary of Care ---
Author Name Unknown Organization [place] [address] Care Team Providers Care Hanger Off Name Role Phone Roger Alexandra MD Primary Care Provider [phone] [phone] Reason for Visit * Reason Onset Date Comments Appointment 01/28/2022 Encounter Details Date Type Department Care Team Description 01/28/2022 Telephone Audiology [facility] [address] [place] [address] Services, Scheduling [address] [place] [address] Appointment Allergies Active Allergy Reactions Severity Noted [...] clinic 180 Tab 1 08/18/2021 Active Nystatin 715289 UNIT/GM External Powder (Nyamyc) apply to affected [...] Miscellaneous Notes * Telephone Encounter - RUFINA Bynum - 01/29/2022 10:58 AM EDT Pt rescheduled RUFINA Bynum * Telephone Encounter - RUFINA Perrin - 01/29/2022 8:45 AM EDT Left message to call ENT back Thanks Vandana * Telephone Encounter - RUFINA Sagastume - 01/28/2022 2:43 PM EDT Pt was admitted in the hospital when the appt was to occur. Please advise on a date and time for audio and ent appt on a Wednesday in [facility]. Pt can be reached at the [phone]. Thank you, Sakina documented in this encounter Plan of Treatment Upcoming Encounters Date Type Specialty Care Team Description 02/16/2022 Laboratory Laboratory Processing [facility] [place] Mobile Home Draw [address] [place] [address] 02/17/2022 [facility] [address] [place] [address] 02/25/2022 Office Visit Otolaryngology Jazmine Whitehead PA-C [address] [facility] [place] [address] 07/24/2022 Office Visit Pulmonary Jesus Bonilla MD [address] [place] [address] Scheduled Procedures Name Priority Associated Diagnoses Date/Ti [...] Documents on File Type Date Recorded Patient Hardscape Foreman Expl 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 Advanced Directive 11/02/2011 12:00 AM Care Teams Hanger Off Relationship Specialty Start Date End Date Roger Alexandra MD [address] [place] [address] PCP - General Family Medicine 12/29/19 documented as of this encounter
--- OUTSIDE RECORDS SUMMARY | 2023-07-25 04:43 | External Medical Summary | Summary of Care ---
Author Name Unknown Organization [place] [address] Care Team Providers Care Loan Officer Assistant Name Role Phone Roger Alexandra MD Primary Care Provider [phone] [phone] Encounter Details Date Type Department Care Team Description 01/21/2022 Telephone Family Practice [facility] 132 [facility] [place] [address] Roger Alexandra MD 132 [facility] [place] [address] Allergies Active Allergy Reactions Severity Noted Date Comments Aspirin Unknown 12/12/2007 von Willebrand's disease Salicylates 03/01/2000 von Willebrand's disease documented as of this encounter (statuses as of 01/21/2022) Medications Medication Sig Dispensed Refills Start Date [...] 2 03/18/2021 Active Vitamin D3 1.25 MG (28431 UT) Oral CapsuleIndication s:Vitamin D deficiency Take [...] clinic 180 Tab 1 08/18/2021 Active Nystatin 341770 UNIT/GM External Powder (Nyamyc) apply to affected [...] 20 tabs at discharge 01/17/22 0 Active traZODone HCl 150 MG Oral Tablet (Desyrel) Take by mouth 150 mg before bedtime. 0 01/17/2022 Active Budesonide-Formot jose martin Fumarate 80-4.5 MCG/ACT Inhalation Aerosol (Symbicort) Inhale by mouth 2 Puffs in the morning AND 2 Puffs before bedtime. 10.2 g 1 01/21/2022 Active Budesonide-Formot jose martin Fumarate 80-4.5 MCG/ACT Inhalation Aerosol (Symbicort) Inhale by mouth 2 Puffs in the morning AND 2 Puffs before bedtime. 0 01/21/2022 2 Discontinue d(Refill) documented as of this encounter (statuses as of 01/21/2022) Active Problems Problem Noted Date History of [...] as of this encounter (statuses as of 01/21/2022) Resolved Problems Problem Noted Date Resolved Date [...] as of this encounter (statuses as of 01/21/2022) Immunizations Name Administration Dates Next Due H1N1 [...] Visit Family Medicine Roger Alexandra MD 132 [facility] [place] [address] 01/26/2022 Laboratory [place] Processing [facility] [place] [facility] Mobile Home Draw [address] [place] [address] 01/27/2022 [facility] [address] [place] [address] 07/24/2022 Office Visit Pulmonary Jesus Bonilla MD [address] [place] [facility] [place] [address] Scheduled Procedures Name Priority Associated Diagnoses Date/Ti [...] Documents on File Type Date Recorded Patient Fleet Maintenance Manager Expl 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 Advanced Directive 11/02/2011 12:00 AM Care Teams Loan Officer Assistant Relationship Specialty Start Date End Date Roger Alexandra MD [address] [place] [address] PCP - General Family Medicine 12/29/19 documented as of this encounter
--- OUTSIDE RECORDS SUMMARY | 2023-07-25 04:44 | External Medical Summary | Summary of Care ---
Author Name Unknown Organization [place] [address] Care Team Providers Care Functional Tester Name Role Phone Roger Alexandra MD Primary Care Provider [phone] [phone] Encounter Details Date Type Department Care Team Description 01/07/2022 Orders Only Lab [place] [facility] [place] [address], [place] [id number] Joesph Byrne, DO [address] [place] [address] Routine medical exam* Allergies Active Allergy Reactions Severity Noted Date Comments Aspirin Unknown 12/12/2007 von Willebrand's disease Salicylates 03/01/2000 von Willebrand's disease documented as of this encounter (statuses as of 01/07/2022) Medications Medication Sig Dispensed Refills Start Date End Date Status OXYGEN 4 L during the day as needed and at bedtime 0 02/14/2015 Active Acetaminophen (TYLENOL) 325 MG CAPS Take by mouth. 0 Active Cholestyramine Light (QUESTRAN LIGHT) 4 GM/DOSE POWDIndications:Coli tis Take 1 Scoopful Dosing Unit by mouth 2 times a day. in 6oz of liquid . 210 g 3 03/05/2020 Active Albuterol Sulfate (PROAIR HFA) 108 (90 Base) MCG/ACT AERSIndications:Bron chitis, complicated Inhale 2 Puffs by mouth 4 times a day. 18 g 1 03/26/2020 Active ondansetron (ZOFRAN) 4 MG Tablet Take 1 Tab by mouth every 8 hours as needed for Nausea. 15 Tab 0 06/07/2020 Active Albuterol Sulfate (2.5 MG/3ML) 0.083% Inhalation Nebulization Solution (PROVENTIL)Indicatio ns:Bronchitis, complicated,COPD, severe (HCC) Inhale 1 Vial via nebulizer every 4 hours as needed for Wheezing. 20 mL 1 08/23/2020 Active Furosemide 20 MG Oral Tablet (Lasix) take 1 tablet by mouth once daily if needed (3LB WEIGHT GAIN OR LEG SWELLING) 30 Tab 2 02/09/2021 Active Disposable Brief X-LargeIndications:O veractive bladder Attends X-Large Super Absorb Underwear 32 Each 2 03/18/2021 Active guaiFENesin-Codeine 100-10 MG/5ML Oral Syrup (Robitussin AC) Take 5 mL by mouth every 4 hours as needed for Cough. 120 mL 0 04/23/2021 Active Vitamin D3 1.25 MG (40730 UT) Oral CapsuleIndications:V itamin D deficiency Take 1 Cap by mouth [...] Activated (fluticasone Furoate) DAILY 0 05/25/2021 Active Anoro Ellipta 62.5-25 MCG/INH Inhalation Aerosol Powder Breath Activated (umeclidinium-vilant jose martin) Inhale 1 Puff by mouth daily. 30 Each 11 06/12/2021 Active Warfarin Sodium 5 MG Oral Tablet (Coumadin)Indication s:Paroxysmal atrial fibrillation (HCC) Take 1.5-2 Tabs by mouth daily. As directed by coumadin clinic 180 Tab 1 08/18/2021 Active Nystatin 049163 UNIT/GM External Powder (Nyamyc) apply to affected area twice a day 15 g 1 11/04/2021 Active LORazepam 0.5 MG Oral Tablet (Ativan) Take by mouth 1 Tablet as needed in the morning AND 1 Tablet as needed at noon AND 1 Tablet as needed in the evening for Anxiety. 90 Tablet 1 12/15/2021 Active traMADol HCl 100 MG Oral TabletIndications:Ch ronic bilateral low back pain without sciatica Take by mouth 100 mg every 8 hours as needed for Pain, Moderate or Pain, Severe. 90 Tablet 0 12/17/2021 Active Mirtazapine 7.5 MG Oral Tablet (Remeron) [...] 60mg daily. 30 Capsule 2 01/05/2022 Active FLUoxetine HCl 40 MG Oral Capsule (PROzac) Take by mouth 1 Capsule in the morning. In the morning.. 30 Capsule 2 01/05/2022 Active documented as of this encounter (statuses as of 01/07/2022) Active Problems Problem Noted Date History of [...] as of this encounter (statuses as of 01/07/2022) Resolved Problems Problem Noted Date Resolved Date [...] as of this encounter (statuses as of 01/07/2022) Immunizations Name Administration Dates Next Due H1N1 [...] as of this encounter Progress Notes * JOHNY Humphrey - 01/07/2022 11:32 PM EST BC documented in this encounter Plan of Treatment Upcoming Encounters Date Type Specialty Care Team Description 01/08/2022 Laboratory Laboratory Processing [place] [address] [place] [address] 01/12/2022 [facility] [address] [place] [address] 07/24/2022 Office Visit Pulmonary Jesus Bonilla MD [address] [facility] [place] [address] Scheduled Orders Name Type Priority Associated Diagnoses Orde r Schedule CBC Lab Routine Routine medical exam Expected: 01/08/2022, Expires: 01/07/2023 BASIC METABOLIC PANEL Lab Routine Routine medical exam Expected: 01/08/2022, Expires: 01/07/2023 PT INR Lab Routine Routine medical exam Expected: 01/08/2022, Expires: 01/07/2023 Scheduled Procedures Name Priority Associated Diagnoses Date/Ti [...] SCREEN EVERY 3 YRS-AGE 45 AND ABOVE 01/03/2025 01/03/2022, 12/10/2021, 12/04/2021, Additional history exists Pneumococcal Vaccine: Pediatrics (0 [...] as of this encounter Visit Diagnoses Diagnosis Routine medical exam- Primary Routine general medical examination at a health care facility documented in this encounter Advance Directives Documents on File Type Date Recorded Patient Secretarial Stenographer Expl 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 Advanced Directive 11/02/2011 12:00 AM Care Teams Functional Tester Relationship Specialty Start Date End Date Roger Alexandra MD [address] [place] [address] PCP - General Family Medicine 12/29/19 documented as of this encounter
--- OUTSIDE RECORDS SUMMARY | 2023-07-25 04:44 | External Medical Summary | Summary of Care ---
Author Name Unknown Organization [facility] Address [place] [address] Care Team Providers Care Supervisor Plate Pasting Name Role Phone Roger Alexandra MD Primary Care Provider [phone] [phone] Reason for Visit * Reason Comments Dosage Adjustment Via Phone (anticoag Cl inic) Encounter Details Date Type Department Care Team Description 01/12/2022 Anticoagulation Pharmacy Call Center [address] [facility] [place] [address] [facility] [address] [facility] [place] [address] termite renewal inspector current use 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* Allergies Active Allergy Reactions Severity Noted Date Comments Aspirin Unknown 12/12/2007 von Willebrand's disease Salicylates 03/01/2000 von Willebrand's disease documented as of this encounter (statuses as of 01/12/2022) Medications Medication Sig Dispensed Refills Start Date [...] 0 04/23/2021 Active Vitamin D3 1.25 MG (51640 UT) Oral CapsuleIndications:V itamin D deficiency Take [...] clinic 180 Tab 1 08/18/2021 Active Nystatin 059995 UNIT/GM External Powder (Nyamyc) apply to affected [...] as of this encounter (statuses as of 01/12/2022) Active Problems Problem Noted Date History of [...] as of this encounter (statuses as of 01/12/2022) Resolved Problems Problem Noted Date Resolved Date [...] 12/21/2008 Atrial septal aneurysm 02/04/2006 9 termite renewal inspector current use 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 0 [...] as of this encounter (statuses as of 01/12/2022) Immunizations Name Administration Dates Next Due H1N1 [...] Progress Notes * Kim Mercado RPh - 01/12/2022 10:14 AM EST Russel NOBLES [phone] Spoke with Russel today. No discharge plans at this time. [facility] will follow up. Kim Mercado Rph, Pharm.D. Clinical Pharmacist Telepharmacy [phone] 01/12/2022,10:19 AM documented in this encounter Plan of Treatment Upcoming Encounters Date Type Specialty Care Team Description 07/24/2022 Office Visit Pulmonary Jesus Bonilla MD [address] [place] [address] Scheduled Procedures Name Priority Associated Diagnoses Date/Ti [...] SCREEN EVERY 3 YRS-AGE 45 AND ABOVE 01/08/2025 01/08/2022, 01/03/2022, 12/10/2021, Additional history exists Pneumococcal Vaccine: Pediatrics (0 [...] of this encounter Visit Diagnoses Diagnosis termite renewal inspector current use 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- Primary documented in this encounter Advance Directives Documents on File Type Date Recorded Patient Utility Tender Carding Expl 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 Directive 11/02/2011 12:00 AM Care Teams Supervisor Plate Pasting Relationship Specialty Start Date End Date Roger Alexandra MD [address] [place] [address] PCP - General Family Medicine 12/29/19 documented as of this encounter
--- OUTSIDE RECORDS SUMMARY | 2023-07-25 04:44 | External Medical Summary | Summary of Care ---
Author Name Unknown Organization [place] [address] Care Team Providers Care Horizontal Resaw Operator Name Role Phone Roger Alexandra MD Primary Care Provider [phone] Encounter Details Date Type Department Care Team Description 01/21/2022 Supervisor Grain And Yeast PlantsVacuum Cleaner Repairer Medicine [address] [address] [place], Angelique Gillis, EMELY [address] [place] [address] [place] [address] History of 2019 novel coronavirus disease (COVID-19)*; Oxygen dependent; COPD, group B, by GOLD 2017 classification [...] 2 03/18/2021 Active Vitamin D3 1.25 MG (95428 UT) Oral CapsuleIndication s:Vitamin D deficiency Take [...] clinic 180 Tab 1 08/18/2021 Active Nystatin 740524 UNIT/GM External Powder (Nyamyc) apply to affected [...] DAILY, (No instructions reported), Reported on 01/21/2022 Budesonide-Formot jose martin Fumarate 80-4.5 MCG/ACT Inhalation Aerosol (Symbicort) Inhale by mouth 2 Puffs in the morning AND 2 Puffs before bedtime. 0 01/21/2022 Active oxyCODONE-Acetami nophen 5-325 MG Oral Tablet (Percocet) Take by mouth 1 Tablet every 4 hours as needed . Gave her 20 tabs at discharge 01/17/22 0 Active traZODone HCl 150 MG Oral Tablet (Desyrel) Take by mouth 150 mg before bedtime. 0 01/17/2022 Active Cholestyramine Light (QUESTRAN LIGHT) 4 GM/DOSE POWDIndications:C olitis Take 1 Scoopful Dosing Unit by mouth 2 times a day. in 6oz of liquid . 210 g 3 03/05/2020 2 Discontinue d(End of Procedure) ondansetron (ZOFRAN) 4 MG Tablet Take 1 Tab by mouth every 8 hours as needed for Nausea. 15 Tab 0 06/07/2020 2 Discontinue d(Medicatio n List Clean Up) guaiFENesin-Codei ne 100-10 MG/5ML Oral Syrup (Robitussin AC) Take 5 mL by mouth every 4 hours as needed for Cough. 120 mL 0 04/23/2021 2 Discontinue d(Medicatio n List Clean Up) Anoro Ellipta 62.5-25 MCG/INH Inhalation Aerosol Powder Breath Activated (umeclidinium-marley anterol) Inhale 1 Puff by mouth daily. 30 Each 11 06/12/2021 2 Discontinue d(Medicatio n List Clean Up) FLUoxetine HCl 40 MG Oral Capsule (PROzac) Take by mouth 1 Capsule in the morning. In the morning.. 30 Capsule 2 01/05/2022 2 Discontinue d(Medicatio n/Dose Changed) documented as of this encounter (statuses as [...] as of this encounter Progress Notes * Angelique Swain RN - 01/21/2022 2:17 PM EST Case Management Assessment Is this call for a hospital, intermediate or rehab facility discharge to home? Yes [facility] due to hypoxic respiratory failure. She had Covid back in Nov 2021 and positive again on 12/26/21. She received Remdesivir and Dexamethasone and increased need for supplemental 02 at 4 lpm. Also dx wiith UTI and treated with IV antibiotics as well as IV steroids. [facility] and was able to be discharged to [facility] on 01/02/22 for rehab. She has chronic osteoarthritis of her L hip and not felt to be a safe surgical candidate. She compleed rehab at [facility] and was discharged to her home on 01/17/22. S: Reports: She tells me she only has 2 remaining Percocet tablets. She received 20 tablets on 01/17/22. She does have Tramadol at home but not using currently. Message to Dr Alexandra today. She will see him on 01/23/22. She is using her 02 at 4 LPM. Does not use her ]nebulizer as makes her too jittery and nervous. Suggested she talk to Dr Alexandra about this. She has Arnuity and Symbicort and she says she is using as directed. She says her bowels are moving. She has a walker and a wheelchair at home. She does have a non-productive cough at times. Reports still with some swelling at feet and ankles.Has Lasix to use as needed for swelling. O: Phone visit for CM RAYSHAWN assessment for rehab discharge on 01/17/22. Medications: takes all medications as prescribed. Does this patient qualify for an annual wellness visit? No A: Patient Centered Prioritized Goals: Development of self - management action plan with patient/caregiver/ provider. Patient and caregiver demonstrate basic understanding of their disease process. Exacerbations have been prevented, minimized or reduced in severity. Co-morbid conditions identified and managed. Patient/ caregiver demonstrates adherence to treatment plan. Identified Barriers: Limited mobility due to L hip pain FUNCTIONAL STATUS: (Definition - assess ability to patient to manage their own care, includes evaluation of activities of daily living, and instrumental activities of daily living, and cognitive abilities status) ADL'S - Needs Assistance With: Bathing IADL'S - Needs Assistance With: Grocery Shopping, Cooking food, Routine Housework and Attending to safety Cognitive and Mental Health: alert and oriented x 3 and able to communicate, understand instructions, process information. P: Supervisor Grain And Yeast Plants Interventions: Reinforce Self Management Action Plan established at previous visit Reinforced "call back instructions" if weight fails to return to baseline, urine outputs decrease, symptoms increase Contacted managing provider Reinforced safety education / fall prevention Reinforced medication regimen - timing / dosing / purpose Discussed alternate medication therapy with provider / pharmacist Medication optimization with Provider Explained/reinforced role of family service caseworker. Encouraged to call with any issues or concerns. Gave direct phone number and contact information. PCP Notified of enrollment in CM/HM program: Yes SNP Member? No Re-evaluation of plan of care and progress towards goals achievement: Plan to call patient in 1 week via IVR to reassess and update plan of care, instructed to call CaseManager or Primary Care Provider with change in symptoms or as needed before next follow-up, verbalizes understanding and agrees with plan. Angelique Swain, EMELY Outpatient Supervisor Grain And Yeast Plants documented in this encounter Plan of Treatment Upcoming Encounters Date Type Specialty Care Team Description 01/23/2022 Office Visit Family Medicine Roger Alexandra MD [address] [facility] [place] [address] 01/26/2022 Laboratory [place] [facility] [place] [facility] Mobile Home Draw [address] [place] [address] 01/27/2022 [facility] [address] [facility] [address] 07/24/2022 Office Visit Pulmonary Jesus Bonilla MD [address] [facility] [place] [id number] Scheduled Procedures Name Priority Associated Diagnoses Date/Ti [...] this encounter Visit Diagnoses Diagnosis History of 2019 novel coronavirus disease (COVID-19)- Primary Oxygen dependent Dependence on supplemental oxygen COPD, group B, by GOLD 2017 classification (HCC) Chronic hypoxemic respiratory failure (HCC) Chronic respiratory failure documented in this encounter Advance Directives Documents on File Type Date Recorded Patient Lan Engineer Expl 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 Advanced Directive 11/02/2011 12:00 AM Care Teams Horizontal Resaw Operator Relationship Specialty Start Date End Date Roger Alexandra MD [address] [place] [address] [place] [address] PCP - General Family Medicine 12/29/19 documented as of this encounter
--- OUTSIDE RECORDS SUMMARY | 2023-07-25 04:44 | External Medical Summary | Summary of Care ---
Author Name Unknown Organization [place] [address] Care Team Providers Care Flavoring Oil Filterer Name Role Phone Roger Alexandra MD Primary Care Provider [phone] [phone] Encounter Details Date Type Department Care Team Description 01/15/2022 Orders Only Lab Mobile Phlebotomy [facility] [place] [address] [place] [address] Joesph Byrne, DO [address] [place] [address] Routine medical exam* Allergies Active Allergy Reactions Severity Noted Date Comments Aspirin Unknown 12/12/2007 von Willebrand's disease Salicylates 03/01/2000 von Willebrand's disease documented as of this encounter (statuses as of 01/15/2022) Medications Medication Sig Dispensed Refills Start Date [...] 0 04/23/2021 Active Vitamin D3 1.25 MG (21618 UT) Oral CapsuleIndications:V itamin D deficiency Take [...] clinic 180 Tab 1 08/18/2021 Active Nystatin 833588 UNIT/GM External Powder (Nyamyc) apply to affected [...] as of this encounter (statuses as of 01/15/2022) Active Problems Problem Noted Date History of [...] as of this encounter (statuses as of 01/15/2022) Resolved Problems Problem Noted Date Resolved Date [...] as of this encounter (statuses as of 01/15/2022) Immunizations Name Administration Dates Next Due H1N1 [...] Encounters Date Type Specialty Care Team Description 01/16/2022 Laboratory Laboratory Processing [place] [address] [facility] [address] 01/20/2022 [facility] [address] [facility] [place] [address] 07/24/2022 Office Visit Pulmonary Jesus Bonilla MD [address] [facility] [place] [address] Scheduled Orders Name Type Priority Associated Diagnoses Orde r Schedule PT INR Lab Routine Routine medical exam Expected: 01/16/2022, Expires: 3 Scheduled Procedures Name Priority Associated Diagnoses Date/Ti [...] Documents on File Type Date Recorded Patient Loan Reviewer Expl 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 Advanced Directive 11/02/2011 12:00 AM Care Teams Flavoring Oil Filterer Relationship Specialty Start Date End Date Roger Alexandra MD [address] [facility] [place] [address] PCP - General Family Medicine 12/29/19 documented as of this encounter
--- OUTSIDE RECORDS SUMMARY | 2023-07-25 04:44 | External Medical Summary | Summary of Care ---
Author Name Unknown Organization [place] [address] Care Team Providers Care Dye Operator Name Role Phone Roger Alexandra MD Primary Care Provider [phone] [phone] Encounter Details Date Type Department Care Team Description 01/14/2022 Orders Only Lab [place] Phlebot[place] [facility] [place] [address] [place], [place] [id number] Joesph Byrne, DO [address] [place] [address] Routine medical exam* Allergies Active Allergy Reactions Severity Noted Date Comments Aspirin Unknown 12/12/2007 von Willebrand's disease Salicylates 03/01/2000 von Willebrand's disease documented as of this encounter (statuses as of 01/14/2022) Medications Medication Sig Dispensed Refills Start Date [...] 0 04/23/2021 Active Vitamin D3 1.25 MG (62777 UT) Oral CapsuleIndications:V itamin D deficiency Take [...] clinic 180 Tab 1 08/18/2021 Active Nystatin 596973 UNIT/GM External Powder (Nyamyc) apply to affected [...] as of this encounter (statuses as of 01/14/2022) Active Problems Problem Noted Date History of [...] as of this encounter (statuses as of 01/14/2022) Resolved Problems Problem Noted Date Resolved Date [...] as of this encounter (statuses as of 01/14/2022) Immunizations Name Administration Dates Next Due H1N1 [...] encounter Progress Notes * JOHNY Humphrey - 01/14/2022 10:20 PM EST CBC documented in this encounter Plan of Treatment Upcoming Encounters Date Type Specialty Care Team Description 01/15/2022 Laboratory Laboratory Processing [place] [address] [place] [address] 01/20/2022 [facility] [address] [place] [address] 07/24/2022 Office Visit Pulmonary [facility] [address] [facility] [address] Scheduled Orders Name Type Priority Associated Diagnoses Orde r Schedule CBC Lab Routine Routine medical exam Expected: 01/15/2022, Expires: 01/14/2023 BASIC METABOLIC PANEL Lab Routine Routine medical exam Expected: 01/15/2022, Expires: 01/14/2023 Scheduled Procedures Name Priority Associated Diagnoses Date/Ti [...] Documents on File Type Date Recorded Patient Copper Etcher Expl 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 Advanced Directive 11/02/2011 12:00 AM Care Teams Dye Operator Relationship Specialty Start Date End Date Roger Alexandra MD [address] [place] [address] PCP - General Family Medicine 12/29/19 documented as of this encounter
--- OUTSIDE RECORDS SUMMARY | 2023-07-25 04:44 | External Medical Summary ---
Author Name Unknown Address Unknown Organization K09[facility] [place] [address] Laboratory Report Ordering Provider Test Date Status SINA ORTEGA 01/15/2022 05:45:00 Final Observation Date Value Abnormality Reference (Units ) Status BUN 01/15/2022 05:45:00 21 Above high normal 6-20 (mg/dL) Final Creatinine 01/15/2022 05:45:00 0.7 0.5-1.0 (mg/dL) Final Glomerular filtration rate/1.73 sq M.predicted [Volume Rate/Area] in Serum, Plasma or Blood by Creatinine-based formula (CKD-EPI) 01/15/2022 05:45:00 >90 >=60 (mL/min) Final Performing Location [facility] [place] [address]
--- OUTSIDE RECORDS SUMMARY | 2023-07-25 04:44 | External Medical Summary | Summary of Care ---
Author Name Unknown Organization [place] [address] Care Team Providers Care Women'S Basketball Coach Name Role Phone Roger Alexandra MD Primary Care Provider [phone] [phone] Encounter Details Date Type Department Care Team Description 01/21/2022 Steel TesterSplash Line Operator Medicine [address] [address] Ohs, Angelique Gillis, EMELY [address] [place] [address] [place] [address] History of 2019 novel coronavirus disease [...] 2 03/18/2021 Active Vitamin D3 1.25 MG (40853 UT) Oral CapsuleIndication s:Vitamin D deficiency Take [...] clinic 180 Tab 1 08/18/2021 Active Nystatin 643560 UNIT/GM External Powder (Nyamyc) apply to affected [...] Assessment Is this call for a hospital, half-way or rehab facility discharge to home? Yes Admitted to [facility]21 due to hypoxic respiratory failure. She had Covid back in Nov 2021 and positive again on 12/26/21. She received Remdesivir and Dexamethasone and increased need for supplemental 02 at 4 lpm. Also dx wiith UTI and treated with IV antibiotics as well as IV steroids. She was transsitioned to [facility] and was able to be discharged to [facility] on 01/02/22 for rehab. She has chronic osteoarthritis of her L hip and not felt to be a safe surgical candidate. She compleed rehab at [facility] and was discharged to her home on [...] to communicate, understand instructions, process information. P: Steel Tester Interventions: Reinforce Self Management Action Plan established at previous visit Reinforced "call back instructions" if weight fails to return to baseline, urine outputs decrease, symptoms increase Contacted managing provider Reinforced safety education / fall prevention Reinforced medication regimen - timing / dosing / purpose Discussed alternate medication therapy with provider / pharmacist Medication optimization with Provider Explained/reinforced role of upper caser. Encouraged to call with any issues or [...] agrees with plan. Angelique Swain, EMELY Outpatient Steel Tester documented in this encounter Plan of Treatment Upcoming Encounters Date Type Specialty Care Team Description 01/23/2022 Office Visit Family Medicine Roger Alexandra MD 132 [facility] [place] [address] 01/26/2022 Laboratory Laboratory Processing [facility], [facility] Mobile Home Draw [address] [place] [address] 01/27/20[facility] [address] 07/24/2022 Office Visit Pulmonary Jesus Bonilla MD [address] [facility] [place] [id number] Scheduled Procedures Name Priority Associated Diagnoses Date/Ti [...] Documents on File Type Date Recorded Patient Licensed Aircraft Maintenance Engineer Expl 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 Advanced Directive 11/02/2011 12:00 AM Care Teams Women'S Basketball Coach Relationship Specialty Start Date End Date Roger Alexandra MD [address] [place] [address] [place] [address] PCP - General Family Medicine 12/29/19 documented as of this encounter
--- OUTSIDE RECORDS SUMMARY | 2023-07-25 04:44 | External Medical Summary ---
Author Name Unknown Address Unknown Organization [id number]:[facility] [place] [address] Laboratory Report Ordering Provider Test Date Status SINA ORTEGA 01/08/2022 05:57:00 Final Observation Date Value Abnormality Reference (Units ) Status WBC, Total 01/08/2022 05:57:00 10.67 4.00-10.8 0 (K/uL) Final RBC 01/08/2022 05:57:00 3.54 Below low normal 3.8 5-5.15 (M/uL) Final Hemoglobin 01/08/2022 05:57:00 10.6 Below low normal 12 .0-15.3 (g/dL) Final HCT 01/08/2022 05:57:00 33.6 Below low normal 36. 0-45.2 (%) Final MCV 01/08/2022 05:57:00 94.9 81.5-97.5 (fL) Final MCH 01/08/2022 05:57:00 29.9 27.0-34.0 (pg) Final MCHC 01/08/2022 05:57:00 31.5 Below low normal 32. 0-36.0 (g/dL) Final RDW 01/08/2022 05:57:00 18.6 Above high normal 11 .5-15.5 (%) Final Platelets 01/08/2022 05:57:00 376 140-400 (K /uL) Final MPV 01/08/2022 05:57:00 8.5 6.6-11.1 ( fL) Final Performing Location [facility] [place] [address]
--- OUTSIDE RECORDS SUMMARY | 2023-07-25 04:44 | External Medical Summary | Summary of Care ---
Author Name Unknown Organization [place] [address] Care Team Providers Care Criminal Profiler Name Role Phone Roger Alexandra MD Primary Care Provider [phone] [phone] Encounter Details Date Type Department Care Team Description 01/11/2022 Orders Only Lab Mobile Phlebotomy [facility] [address] [place] [address] Joesph Byrne, DO [address] [place] [address] Routine medical exam* Allergies Active Allergy Reactions Severity Noted Date Comments Aspirin Unknown 12/12/2007 von Willebrand's disease Salicylates 03/01/2000 von Willebrand's disease documented as of this encounter (statuses as of 01/11/2022) Medications Medication Sig Dispensed Refills Start Date [...] 0 04/23/2021 Active Vitamin D3 1.25 MG (03232 UT) Oral CapsuleIndications:V itamin D deficiency Take [...] clinic 180 Tab 1 08/18/2021 Active Nystatin 092794 UNIT/GM External Powder (Nyamyc) apply to affected [...] as of this encounter (statuses as of 01/11/2022) Active Problems Problem Noted Date History of [...] as of this encounter (statuses as of 01/11/2022) Resolved Problems Problem Noted Date Resolved Date [...] as of this encounter (statuses as of 01/11/2022) Immunizations Name Administration Dates Next Due H1N1 [...] encounter Progress Notes * JOHNY Humphrey - 01/11/2022 10:27 PM EST [TI documented in this encounter Plan of Treatment Upcoming Encounters Date Type Specialty Care Team Description 01/12/2022 Laboratory Laboratory Processing [facility] [address] [place] [address] 01/12/2022 [facility] [address] [place] [address] 07/24/2022 Office Visit Pulmonary [facility] [address] [facility] [address] Scheduled Orders Name Type Priority Associated Diagnoses Orde r Schedule PT INR Lab Routine Routine medical exam Expected: 01/12/2022, Expires: 3 Scheduled Procedures Name Priority Associated [...] Documents on File Type Date Recorded Patient Molder Expl 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 Advanced Directive 11/02/2011 12:00 AM Care Teams Criminal Profiler Relationship Specialty Start Date End Date Roger Alexandra MD [address] [facility] [place] [address] PCP - [facility] Medicine 12/29/19 documented as of this encounter
--- OUTSIDE RECORDS SUMMARY | 2023-07-25 04:44 | External Medical Summary ---
Author Name Unknown Address Unknown Organization K09:[facility] [place] [address] Laboratory Report Ordering Provider Test Date Status SINA ORTEGA 01/15/2022 05:45:00 Final Observation Date Value Abnormality Reference (Units ) Status WBC, Total 01/15/2022 05:45:00 5.65 4.00-10.8 0 (K/uL) Final RBC 01/15/2022 05:45:00 3.60 Below low normal 3.8 5-5.15 (M/uL) Final Hemoglobin 01/15/2022 05:45:00 10.6 Below low normal 12 .0-15.3 (g/dL) Final HCT 01/15/2022 05:45:00 33.7 Below low normal 36. 0-45.2 (%) Final MCV 01/15/2022 05:45:00 93.6 81.5-97.5 (fL) Final MCH 01/15/2022 05:45:00 29.4 27.0-34.0 (pg) Final MCHC 01/15/2022 05:45:00 31.5 Below low normal 32. 0-36.0 (g/dL) Final RDW 01/15/2022 05:45:00 17.7 Above high normal 11 .5-15.5 (%) Final Platelets 01/15/2022 05:45:00 318 140-400 (K /uL) Final MPV 01/15/2022 05:45:00 8.5 6.6-11.1 ( fL) Final Performing Location [facility] [place] [address]
--- OUTSIDE RECORDS SUMMARY | 2023-07-25 04:44 | External Medical Summary ---
Author Name Unknown Address Unknown Organization K09:[facility] [place] [address] Laboratory Report Ordering Provider Test Date Status SINA ORTEGA 01/12/2022 05:40:00 Final Observation Date Value Abnormality Reference (Units ) Status PT 01/12/2022 05:40:00 26.1 Above high normal 11 .5-14.6 (seconds) Final INR 01/12/2022 05:40:00 2.39 Above high normal 0. 84-1.14 Final Performing Location [facility] [place] [address]
--- OUTSIDE RECORDS SUMMARY | 2023-07-25 04:44 | External Medical Summary ---
Author Name Unknown Address Unknown Organization K01:[facility] [address] [place] [address] Laboratory Report Ordering Provider Test Date Status TRAVIS BONDANYIKEITH 01/07/2022 22:00:00 Final Observation Date Value Abnormality Reference (Units) Status Bacteria identified in Unspecified specimen by Culture 01/07/2022 22:00:00 No significant growth Final Performing Location [facility] - [address] [place] [address]
--- OUTSIDE RECORDS SUMMARY | 2023-07-25 04:44 | External Medical Summary ---
Author Name Unknown Address Unknown Organization K09:[facility] [place] [address] Laboratory Report Ordering Provider Test Date Status PHONG BOND 01/07/2022 22:00:00 Final Observation Date Value Abnormality Reference (Units ) Status Color of Urine by Auto 01/07/2022 22:00:00 Yellow Light Yellow, Yellow, Dark Yellow Final Clarity, Urine 01/07/2022 22:00:00 Clear Clear Final Glucose [Mass/volume] in Urine by Automated test strip 01/07/2022 22:00:00 Negative Negative (mg/dL) Final Bilirubin.total [Presence] in Urine by Automated test strip 01/07/2022 22:00:00 Negative Negative Final Ketones [Mass/volume] in Urine by Automated test strip 01/07/2022 22:00:00 Negative Negative (mg/dL) Final Specific gravity, Urine 01/07/2022 22:00:00 1.025 1.003-1.030 Final Hemoglobin [Presence] in Urine by Automated test strip 01/07/2022 22:00:00 Negative Negative Final pH, Urine 01/07/2022 22:00:00 5.0 5.0-7.5 (Units) Final Protein [Mass/volume] in Urine by Automated test strip 01/07/2022 22:00:00 Negative Negative (mg/dL) Final Urobilinogen [Mass/volume] in Urine by Automated test strip 01/07/2022 22:00:00 0.2 0.2, 1.0 (mg/dL) Final Nitrite [Presence] in Urine by Automated test strip 01/07/2022 22:00:00 Negative Negative Final Leukocyte esterase [Presence] in Urine by Automated test strip 01/07/2022 22:00:00 Negative Negative Final Annotation Comment 01/07/2022 22:00:00 Final Performing Location [facility] [place] [address]
--- OUTSIDE RECORDS SUMMARY | 2023-07-25 04:44 | External Medical Summary ---
Author Name Unknown Address Unknown Organization K09:[facility] [place] [address] Laboratory Report Ordering Provider Test Date Status SINA ORTEGA 01/08/2022 05:57:00 Final Observation Date Value Abnormality Reference (Units ) Status PT 01/08/2022 05:57:00 25.6 Above high normal 11 .5-14.6 (seconds) Final INR 01/08/2022 05:57:00 2.34 Above high normal 0. 84-1.14 Final Performing Location [facility] [place] [address]
--- OUTSIDE RECORDS SUMMARY | 2023-07-25 04:44 | External Medical Summary | Summary of Care ---
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..] as of this encounter (statuses as of 01/20/2022) Resolved Problems Problem Noted Date Resolved Date [...] as of this encounter (statuses as of 01/20/2022) Immunizations Name Administration Dates Next Due H1N1 [...] Progress Notes * Kim Mercado RPh - 01/20/2022 2:32 PM EST Medication Therapy Disease Management - Anticoagulation Patient: Kimberly Kendall : 1960 Contacts Type Contact Phone 01/20/2022 03:59 PM EST Phone (Outgoing) BartholomewKimberly mcdnonell (Self) [phone] (M) Spoke to Patient Current Warfarin Dose As of 01/20/2022 Warfarin maintenance plan: 5 mg (5 mg x 1) every day Patient-Reported Symptoms: Patient Findings Positives: Other complaints Negatives: Signs/symptoms of thrombosis, Signs/symptoms of bleeding, Change in health, Change in alcohol use, Change in activity, Upcoming invasive procedure, Missed doses, Extra doses, Change in medications, Change in diet/appetite, Bruising Comments: Pt discharged from [facility] to home. Confirmed pt is taking 5mg daily and still requiresGML. INR Result As of 01/20/2022 INR goal: 2.0-3.0 INR used for dosin.14 (01/16/2022) Warfarin Plan As of 01/20/2022 Full warfarin instructions: 5 mg every day No change documented: Kim Mercado RPh Next INR check: 01/26/2022 Additional Dosing Information: Description GML Repeat PT/INR in 6 day(s) Weekly dose: not changed Kim Mercado RPh Clinical Pharmacist 01/20/2022, 4:01 PM documented in this encounter Plan of Treatment Upcoming Encounters Date Type Specialty Care Team Description 01/23/2022 Office Visit Family Medicine Roger Alexandra MD [address] [place] [address] 01/27/2022 [facility] [address] [facility] [place] [address] 07/24/2022 Office Visit Pulmonary Jesus Bonilla MD [address] [place] [address] Scheduled Procedures Name Priority Associated Diagnoses Date/Ti [...] of this encounter Visit Diagnoses Diagnosis 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
--- OUTSIDE RECORDS SUMMARY | 2023-07-25 04:44 | External Medical Summary ---
Author Name Unknown Address Unknown Organization [facility] - [address] [place] [address] Laboratory Report Ordering Provider Test Date Status SINA ORTEGA 01/16/2022 06:17:00 Final Observation Date Value Abnormality Reference (Units ) Status PT 01/16/2022 06:17:00 24.0 Above high normal 11 .5-14.6 (seconds) Final INR 01/16/2022 06:17:00 2.14 Above high normal 0. 84-1.14 Final Performing Location [facility] [place] [address] - [address] [place] [address]
--- OUTSIDE RECORDS SUMMARY | 2023-07-25 04:44 | External Medical Summary ---
Author Name Unknown Address Unknown Organization K09:[facility] [place] [address] Laboratory Report Ordering Provider Test Date Status SINA ORTEGA 01/08/2022 06:57:00 Final Observation Date Value Abnormality Reference (Units ) Status BUN 01/08/2022 06:57:00 30 Above high normal 6-20 (mg/dL) Final Creatinine 01/08/2022 06:57:00 0.7 0.5-1.0 (mg/dL) Final Glomerular filtration rate/1.73 sq M.predicted [Volume Rate/Area] in Serum, Plasma or Blood by Creatinine-based formula (CKD-EPI) 01/08/2022 06:57:00 >90 >=60 (mL/min) Final Performing Location [facility] [place] [address]
--- OUTSIDE RECORDS SUMMARY | 2023-07-25 04:45 | External Medical Summary | Summary of Care ---
Author Name Unknown Organization [place] [address] Care Team Providers Care Order To Delivery Supervisor Name Role Phone Roger Alexandra MD Primary Care Provider [phone] [phone] Encounter Details Date Type Department Care Team Description 01/03/2022 Scan Encounter [facility] 132 [facility] [place] [address] Roger Alexandra MD 132 [facility] [place] [address] <No scans attached> Allergies Active Allergy Reactions Severity Noted Date Comments Aspirin Unknown 12/12/2007 von Willebrand's disease Salicylates 03/01/2000 von Willebrand's disease documented as of this encounter (statuses as of 01/05/2022) Medications Medication Sig Dispensed Refills Start Date [...] 0 04/23/2021 Active Vitamin D3 1.25 MG (64084 UT) Oral CapsuleIndications:V itamin D deficiency Take [...] clinic 180 Tab 1 08/18/2021 Active Nystatin 407547 UNIT/GM External Powder (Nyamyc) apply to affected [...] as of this encounter (statuses as of 01/05/2022) Active Problems Problem Noted Date History of [...] as of this encounter (statuses as of 01/05/2022) Resolved Problems Problem Noted Date Resolved Date [...] as of this encounter (statuses as of 01/05/2022) Immunizations Name Administration Dates Next Due H1N1 [...] Jesus Bonilla MD [address] [place] [id number] Scheduled Procedures Name Priority Associated Diagnoses Date/Ti [...] Documents on File Type Date Recorded 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
--- OUTSIDE RECORDS SUMMARY | 2023-07-25 04:45 | External Medical Summary | Summary of Care ---
Author Name Unknown Organization [place] [address] Care Team Providers Care Bookbinder Apprentice Name Role Phone Roger Alexandra MD Primary Care Provider [phone] [phone] Reason for Visit * Reason Onset Date Comments Medication Refill 01/02/2022 Encounter Details Date Type Department Care Team Description 01/02/2022 Refill [facility] [address] [place] [address] Hugo Alcantara MD [address] [place] [address] Allergies Active Allergy Reactions Severity Noted Date [...] Active Cholestyramine Light (QUESTRAN LIGHT) 4 GM/DOSE POWDIndications:Co litis Take 1 Scoopful Dosing Unit by mouth 2 times a day. in 6oz of liquid . 210 g 3 03/05/2020 Active Albuterol Sulfate (PROAIR HFA) 108 (90 Base) MCG/ACT AERSIndications:Br onchitis, complicated Inhale 2 Puffs by mouth 4 times a day. 18 g 1 03/26/2020 Active ondansetron (ZOFRAN) 4 MG Tablet Take 1 Tab by mouth every 8 hours as needed for Nausea. 15 Tab 0 06/07/2020 Active Albuterol Sulfate (2.5 MG/3ML) 0.083% Inhalation Nebulization Solution (PROVENTIL)Indicat ions:Bronchitis, complicated,COPD, severe (HCC) Inhale 1 Vial via nebulizer every 4 hours as needed for Wheezing. 20 mL 1 08/23/2020 Active Furosemide 20 MG Oral Tablet (Lasix) take 1 tablet by mouth once daily if needed (3LB WEIGHT GAIN OR LEG SWELLING) 30 Tab 2 02/09/2021 Active Disposable Brief X-LargeIndications :Overactive bladder Attends X-Large Super Absorb Underwear 32 Each 2 03/18/2021 Active guaiFENesin-Codein e 100-10 MG/5ML Oral Syrup (Robitussin AC) Take 5 mL by mouth every 4 hours as needed for Cough. 120 mL 0 04/23/2021 Active Vitamin D3 1.25 MG (57259 UT) Oral CapsuleIndications :Vitamin D deficiency Take 1 Cap by mouth [...] 62.5-25 MCG/INH Inhalation Aerosol Powder Breath Activated (umeclidinium-tj nterol) Inhale 1 Puff by mouth daily. 30 Each 11 06/12/2021 Active Warfarin Sodium 5 MG Oral Tablet (Coumadin)Indicati ons:Paroxysmal atrial fibrillation (HCC) Take 1.5-2 Tabs by mouth daily. As directed by coumadin clinic 180 Tab 1 08/18/2021 Active Nystatin 355724 UNIT/GM External Powder (Nyamyc) apply to affected area twice a day 15 g 1 11/04/2021 Active LORazepam 0.5 MG Oral Tablet (Ativan) Take by mouth 1 Tablet as needed in the morning AND 1 Tablet as needed at noon AND 1 Tablet as needed in the evening for Anxiety. 90 Tablet 1 12/15/2021 Active traMADol HCl 100 MG Oral TabletIndications: [...] the morning.. 30 Capsule 2 01/05/2022 Active FLUoxetine HCl 40 MG Oral Capsule (PROzac) Take 1 Cap by mouth daily. In the morning. 30 Cap 2 06/18/2021 2 Discontinue d(Refill) busPIRone HCl 10 MG Oral Tablet (Buspar) Take 1 Tab by mouth 2 times a day. 60 Tab 2 09/08/2021 2 Discontinue d(Refill) FLUoxetine HCl 20 MG Oral Capsule (PROzac) Take 1 Capsule by mouth daily. In addition to 40mg cap for a total of 60mg daily 30 Capsule 2 10/01/2021 2 Discontinue d(Refill) documented as of this [...] Telephone Encounter - Hugo Alcantara MD - 01/05/2022 7:51 AM EST Signed Prescriptions: Disp Refills busPIRone HCl 10 MG Oral Tablet (Buspar) 60 Tab*2 Sig: Take by mouth 1 Tablet in the morning AND 1 Tablet before bedtime.Authorizing Provider: HUGO ALCANTARA FLUoxetine HCl 20 MG Oral Capsule (PROzac) 30 Cap*2 Sig: Take by mouth 1 Capsule in the morning.In addition to 40mg cap for a total of 60mg daily.Authorizing Provider: HUGO ALCANTARA FLUoxetine HCl 40 MG Oral Capsule (PROzac) 30 Cap*2 Sig: Take by mouth 1 Capsule in the morning. In the morning..Authorizing Provider: HUGO ALCANTARA * Telephone Encounter - Hugo Alcantara MD - 01/05/2022 7:51 AM EST Signed Prescriptions: Disp Refills busPIRone HCl 10 MG Oral Tablet (Buspar) 60 Tab*2 Sig: Take by mouth 1 Tablet in the morning AND 1 Tablet before bedtime.Authorizing Provider: HUGO ALCANTARA FLUoxetine HCl 20 MG Oral Capsule (PROzac) 30 Cap*2 Sig: Take by mouth 1 Capsule in the morning. In addition to 40mg cap for a total of 60mg daily.Authorizing Provider: HUGO ALCANTARA FLUoxetine HCl 40 MG Oral Capsule (PROzac) 30 Cap*2 Sig: Take by mouth 1 Capsule in the morning. 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
--- OUTSIDE RECORDS SUMMARY | 2023-07-25 04:45 | External Medical Summary | Summary of Care ---
Author Name Unknown Organization [facility] Address [place] [address] Care Team Providers Care It Training Specialist Name Role Phone Roger Alexandra MD Primary Care Provider +1 [phone] Reason for Visit * Reason Comments Dosage Adjustment Via Phone (anticoag Cl inic) Encounter Details Date Type Department Care Team Description 12/30/2021 Anticoagulation Pharmacy Call Center 58-60 [facility] [place] [address] Telepharmacy, [facility] [address] [facility] [address] Anticoagulation management encounter* Allergies Active Allergy Reactions Severity Noted Date Comments Aspirin Unknown 12/12/2007 von Willebrand's disease Salicylates 03/01/2000 von Willebrand's disease documented as of this encounter (statuses as of 12/30/2021) Medications Medication Sig Dispensed Refills Start Date [...] 0 04/23/2021 Active Vitamin D3 1.25 MG (22981 UT) Oral CapsuleIndications:V itamin D deficiency Take [...] mouth daily. 30 Each 11 06/12/2021 Active FLUoxetine HCl 40 MG Oral Capsule (PROzac) Take 1 Cap by mouth daily. In the morning. 30 Cap 2 06/18/2021 Active Warfarin Sodium 5 MG Oral Tablet (Coumadin)Indication s:Paroxysmal atrial fibrillation (HCC) Take 1.5-2 Tabs by mouth daily. As directed by coumadin clinic 180 Tab 1 08/18/2021 Active busPIRone HCl 10 MG Oral Tablet (Buspar) Take 1 Tab by mouth 2 times a day. 60 Tab 2 09/08/2021 Active FLUoxetine HCl 20 MG Oral Capsule (PROzac) Take 1 Capsule by mouth daily. In addition to 40mg cap for a total of 60mg daily 30 Capsule 2 10/01/2021 Active Nystatin 967904 UNIT/GM External Powder (Nyamyc) apply to affected [...] as of this encounter (statuses as of 12/30/2021) Active Problems Problem Noted Date History of [...] as of this encounter (statuses as of 12/30/2021) Resolved Problems Problem Noted Date Resolved Date [...] as of this encounter (statuses as of 12/30/2021) Immunizations Name Administration Dates Next Due H1N1 [...] of this encounter Progress Notes * DANIEL Laboy Tech - 12/30/2021 7:36 AM EST L appointment not reschedule. Chart routed to [facility] for next INR draw on 01/01. No results at this time. Mar Medellin Food Mobile Driver 12/30/2021,7:37 AM documented in this encounter Plan of Treatment Upcoming Encounters Date Type Specialty Care Team Description 01/02/2022 [facility] [address] 01/05/2022 Office Visit Otolaryngology John Johnson DO [address] [place] [address] 01/05/2022 Office Visit Audiology Marguerite Valle Au.D. [address] [place] [address] 07/24/2022 Office Visit Pulmonary Jesus Bonilla MD [...] SCREEN EVERY 3 YRS-AGE 45 AND ABOVE 12/10/2024 12/10/2021, 12/04/2021, 11/21/2021, Additional history exists Pneumococcal Vaccine: Pediatrics (0 [...] Documents on File Type Date Recorded Patient Environmental Remediation Consultant Expl 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 Directive 11/02/2011 12:00 AM Care Teams It Training Specialist Relationship Specialty Start Date End Date Roger Alexandra MD [address] [place] [address] PCP - General Family Medicine 12/29/19 documented as of this encounter
--- OUTSIDE RECORDS SUMMARY | 2023-07-25 04:45 | External Medical Summary ---
Author Name Unknown Address Unknown Organization K09[facility] [address] Laboratory Report Ordering Provider Test Date Status SINA ORTEGA 01/06/2022 06:20:00 Final Observation Date Value Abnormality Reference (Units ) Status PT 01/06/2022 06:20:00 25.0 Above high normal 11 .5-14.6 (seconds) Final INR 01/06/2022 06:20:00 2.26 Above high normal 0. 84-1.14 Final Performing Location [facility] [place] [address]
--- OUTSIDE RECORDS SUMMARY | 2023-07-25 04:45 | External Medical Summary ---
Author Name Unknown Address Unknown Organization [facility] [address] [place] [address] Laboratory Report Ordering Provider Test Date Status GRAYSON BIGGS 01/04/2022 06:00:00 Final Observation Date Value Abnormality Reference (Units ) Status PT 01/04/2022 06:00:00 23.2 Above high normal 11 .5-14.6 (seconds) Final INR 01/04/2022 06:00:00 2.06 Above high normal 0. 84-1.14 Final Performing Location [facility] [place] [address] [place] [address]
--- OUTSIDE RECORDS SUMMARY | 2023-07-25 04:45 | External Medical Summary | Summary of Care ---
Author Name Unknown Organization [facility] Address [place] [address] Care Team Providers Care Marketing Engineer Name Role Phone Roger Alexandra MD Primary Care Provider [phone] [phone] Reason for Visit * Reason Comments Dosage Adjustment Via Phone (anticoag Cl inic) Encounter Details Date Type Department Care Team Description 01/02/2022 Anticoagulation Pharmacy Call Center 58-60 [facility] [place] [address] [facility] 60 [facility] [address] exterminator termite current use 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* Allergies Active Allergy Reactions Severity Noted Date Comments Aspirin Unknown 12/12/2007 von Willebrand's disease Salicylates 03/01/2000 von Willebrand's disease documented as of this encounter (statuses as of 01/02/2022) Medications Medication Sig Dispensed Refills Start Date [...] 0 04/23/2021 Active Vitamin D3 1.25 MG (39658 UT) Oral CapsuleIndications:V itamin D deficiency Take [...] daily 30 Capsule 2 10/01/2021 Active Nystatin 015659 UNIT/GM External Powder (Nyamyc) apply to affected [...] as of this encounter (statuses as of 01/02/2022) Active Problems Problem Noted Date History of [...] as of this encounter (statuses as of 01/02/2022) Resolved Problems Problem Noted Date Resolved Date [...] as of this encounter (statuses as of 01/02/2022) Immunizations Name Administration Dates Next Due H1N1 [...] Progress Notes * Kim Mercado RPh - 01/02/2022 10:01 AM EST Pt admitted to [facility]. No discharge plans noted. [facility] will follow up. Kim Mercado Rph, Pharm.D. Clinical Pharmacist Telepharmacy [phone] 01/02/2022,10:02 AM documented in this encounter Plan of Treatment Upcoming Encounters Date Type Specialty Care Team Description 01/05/2022 [facility] 58 60 [facility] [place] [address] 01/05/2022 Office Visit Otolaryngology John Johnson DO 132 [facility] [place] [address] 07/24/2022 Office Visit Pulmonary Jesus Bonilla MD [...] as of this encounter Visit Diagnoses Diagnosis exterminator termite current use 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- Primary documented in this encounter Advance Directives Documents on File Type Date Recorded Patient Ekg Technician Expl 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 Advanced Directive 11/02/2011 12:00 AM Care Teams Marketing Engineer Relationship Specialty Start Date End Date Roger Alexandra MD [address] [place] [address] PCP - General Family Medicine 12/29/19 documented as of this encounter
--- OUTSIDE RECORDS SUMMARY | 2023-07-25 04:45 | External Medical Summary | Summary of Care ---
Author Name Unknown Organization [place] [address] Care Team Providers Care Director Graphics Name Role Phone Roger Alexandra MD Primary Care Provider [phone] [phone] Encounter Details Date Type Department Care Team Description 01/04/2022 Orders Only Lab Mobile Phlebotomy [facility] [address] [place], [place] [id number] Joesph Byrne, DO [address] [place] [address] Routine medical exam* Allergies Active Allergy Reactions Severity Noted Date Comments Aspirin Unknown 12/12/2007 von Willebrand's disease Salicylates 03/01/2000 von Willebrand's disease documented as of this encounter (statuses as of 01/04/2022) Medications Medication Sig Dispensed Refills Start Date [...] 0 04/23/2021 Active Vitamin D3 1.25 MG (88140 UT) Oral CapsuleIndications:V itamin D deficiency Take [...] daily 30 Capsule 2 10/01/2021 Active Nystatin 456876 UNIT/GM External Powder (Nyamyc) apply to affected [...] as of this encounter (statuses as of 01/04/2022) Active Problems Problem Noted Date History of [...] as of this encounter (statuses as of 01/04/2022) Resolved Problems Problem Noted Date Resolved Date [...] as of this encounter (statuses as of 01/04/2022) Immunizations Name Administration Dates Next Due H1N1 [...] Date Type Specialty Care Team Description 01/05/2022 Laboratory Laboratory Processing [place] [address] [facility] [address] 01/05/20[facility] 58 60 [facility] [place] [address] 01/05/2022 Office Visit Otolaryngology John Johnson, [address] [facility] [place] [address] 07/24/2022 Office Visit Pulmonary Jesus Bonilla MD [address] [place] [address] Scheduled Orders Name Type Priority Associated Diagnoses Orde r Schedule PT INR Lab Routine Routine medical exam Expected: 01/05/2022, Expires: 3 Scheduled Procedures Name Priority Associated [...] on File Type Date Recorded Patient Concrete Carpenter Expl 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 Directive 11/02/2011 12:00 AM Care Teams Director Graphics Relationship Specialty Start Date End Date Roger Alexandra MD [address] [place] [address] PCP - [facility] Medicine 12/29/19 documented as of this encounter
--- OUTSIDE RECORDS SUMMARY | 2023-07-25 04:45 | External Medical Summary | Summary of Care ---
Author Name Unknown Organization [facility] Address [place] [address] Care Team Providers Care Burlap Worker Name Role Phone Roger Alexandra MD Primary Care Provider +1 [phone] Reason for Visit * Reason Comments Dosage Adjustment Via Phone (anticoag Cl inic) Encounter Details Date Type Department Care Team Description 01/05/2022 Anticoagulation Pharmacy Call Center 58-60 [facility] [place] [address] [facility] [address] [facility] [place] [address] computer terminal operator current use of anticoagulant [...] 0 04/23/2021 Active Vitamin D3 1.25 MG (58193 UT) Oral CapsuleIndications:V itamin D deficiency Take [...] clinic 180 Tab 1 08/18/2021 Active Nystatin 546450 UNIT/GM External Powder (Nyamyc) apply to affected [...] 02/04/2006 12/21/2008 Atrial septal aneurysm 02/04/2006 9 computer terminal operator current use of anticoagulant [...] Progress Notes * Kim Mercado RPh - 01/05/2022 4:30 PM EST 01/05/2022 04:29 PM Phone (Outgoing) Kimberly Kendall (Self) [phone] (M) Remove Spoke to Patient By Kim Mercado RPh Pt discharged from [facility] to [facility] rehab. Warfarin will be managed in house. [facility] will follow up at discharge. Kim Mercado Rph, Pharm.D. Clinical Pharmacist Telepharmacy [phone] 01/05/2022,4:31 PM documented in this encounter Plan of Treatment Upcoming Encounters Date Type Specialty Care Team Description 07/24/2022 Office Visit Pulmonary [facility] Bonilla MD [address] [facility] [place] [address] Scheduled Procedures Name Priority [...] on File Type Date Recorded Patient Senior Back End Java Developer Expl 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 Advanced Directive 11/02/2011 12:00 AM Care Teams Burlap Worker Relationship Specialty Start Date End Date Roger Alexandra MD [address] [facility] [place] [address] PCP - [facility] 12/29/19 documented as of this encounter
--- OUTSIDE RECORDS SUMMARY | 2023-07-25 04:45 | External Medical Summary ---
Author Name Unknown Address Unknown Organization [facility] [address] [place] [address] Laboratory Report Ordering Provider Test Date Status GRAYSON BIGGS 01/03/2022 05:40:00 Final Observation Date Value Abnormality Reference (Units ) Status BUN 01/03/2022 05:40:00 39 Above high normal 6-20 (mg/dL) Final Creatinine 01/03/2022 05:40:00 0.7 0.5-1.0 (mg/dL) Final Glomerular filtration rate/1.73 sq M.predicted [Volume Rate/Area] in Serum, Plasma or Blood by Creatinine-based formula (CKD-EPI) 01/03/2022 05:40:00 >90 >=60 (mL/min) Final Performing Location [facility] [address] [place] [address]
--- OUTSIDE RECORDS SUMMARY | 2023-07-25 04:45 | External Medical Summary ---
Author Name Unknown Address Unknown Organization [facility] [address] [place] [address] Laboratory Report Ordering Provider Test Date Status GRAYSON BIGGS 01/03/2022 05:40:00 Final Observation Date Value Abnormality Reference (Units ) Status PT 01/03/2022 05:40:00 22.2 Above high normal 11 .5-14.6 (seconds) Final INR 01/03/2022 05:40:00 1.94 Above high normal 0. 84-1.14 Final Performing Location [facility]ORY [facility] [place] [address] [place] [address]
--- OUTSIDE RECORDS SUMMARY | 2023-07-25 04:45 | External Medical Summary ---
Author Name Unknown Address Unknown Organization K0G:[facility] [place] [address] [place] [address] Laboratory Report Ordering Provider Test Date Status GRAYSON BIGGS 01/03/2022 05:40:00 Final Observation Date Value Abnormality Reference (Units ) Status WBC, Total 01/03/2022 05:40:00 17.90 Above high normal 4 .00-10.80 (K/uL) Final RBC 01/03/2022 05:40:00 3.83 Below low normal 3.8 5-5.15 (M/uL) Final Hemoglobin 01/03/2022 05:40:00 11.3 Below low normal 12 .0-15.3 (g/dL) Final HCT 01/03/2022 05:40:00 35.8 Below low normal 36. 0-45.2 (%) Final MCV 01/03/2022 05:40:00 93.5 81.5-97.5 (fL) Final MCH 01/03/2022 05:40:00 29.5 27.0-34.0 (pg) Final MCHC 01/03/2022 05:40:00 31.6 Below low normal 32. 0-36.0 (g/dL) Final RDW 01/03/2022 05:40:00 16.9 Above high normal 11 .5-15.5 (%) Final Platelets 01/03/2022 05:40:00 464 Above high normal 14 0-400 (K/uL) Final MPV 01/03/2022 05:40:00 8.8 6.6-11.1 ( fL) Final Performing Location [facility] [place] [address] [place] [address]
--- OUTSIDE RECORDS SUMMARY | 2023-07-25 04:45 | External Medical Summary ---
Author Name Unknown Address Unknown Organization K0G:[facility] [place] [address] [place] [address] Laboratory Report Ordering Provider Test Date Status GRAYSON BIGGS 01/03/2022 05:40:00 Final Observation Date Value Abnormality Reference (Units ) Status SYNC LEUKOCYTES IN BLOOD BY AUTOMATED COUNT 01/03/2022 05:40:00 17.90 Above high normal 4.00-10.80 (K/uL) Final Neutrophils/100 leukocytes in Blood by Manual count 01/03/2022 05:40:00 66.0 40.0-75.0 (%) Final Lymphocytes/100 leukocytes in Blood by Manual count 01/03/2022 05:40:00 22.0 18.0-42.0 (%) Final Monocytes/100 leukocytes in Blood by Manual count 01/03/2022 05:40:00 9.0 1.0-11.0 (%) Final Eosinophils/100 leukocytes in Blood by Manual count 01/03/2022 05:40:00 1.0 0.0-6.0 (%) Final Metamyelocytes/100 leukocytes in Blood by Manual count 01/03/2022 05:40:00 2.0 Above high normal <=0.0 (%) Final Neutrophils [#/volume] in Blood by Manual count 01/03/2022 05:40:00 11.81 Above high normal 1.80-7.70 (K/uL) Final Lymphocytes [#/volume] in Blood by Manual count 01/03/2022 05:40:00 3.94 1.00-4.80 (K/uL) Final Monocytes [#/volume] in Blood by Manual count 01/03/2022 05:40:00 1.61 Above high normal 0.00-1.10 (K/uL) Final Eosinophils [#/volume] in Blood by Manual count 01/03/2022 05:40:00 0.18 0.00-0.70 (K/uL) Final Metamyelocytes [#/volume] in Blood by Manual count 01/03/2022 05:40:00 0.36 Above high normal <=0.00 (K/uL) Final Nucleated erythrocytes/100 leukocytes [Ratio] in Blood by Automated count 01/03/2022 05:40:00 Final Anisocytosis [Presence] in Blood by Light microscopy 01/03/2022 05:40:00 Slight Abnormal None Seen Final Performing Location [facility] [place] [address] [facility] [address]
--- OUTSIDE RECORDS SUMMARY | 2023-07-25 04:45 | External Medical Summary | Summary of Care ---
Author Name Unknown Organization [place] [address] Care Team Providers Care Custodian Manager Name Role Phone Roger Alexandra MD Primary Care Provider [phone] [phone] Encounter Details Date Type Department Care Team Description 12/26/2021 Scan Encounter [facility] 132 [facility] [place] [address] Roger Alexandra MD 132 [facility] [place] [address] <No scans attached> Allergies Active Allergy Reactions Severity Noted Date Comments Aspirin Unknown 12/12/2007 von Willebrand's disease Salicylates 03/01/2000 von Willebrand's disease documented as of this encounter (statuses as of 12/29/2021) Medications Medication Sig Dispensed Refills Start Date [...] 0 04/23/2021 Active Vitamin D3 1.25 MG (07610 UT) Oral CapsuleIndications:V itamin D deficiency Take [...] daily 30 Capsule 2 10/01/2021 Active Nystatin 866815 UNIT/GM External Powder (Nyamyc) apply to affected [...] as of this encounter (statuses as of 12/29/2021) Active Problems Problem Noted Date History of [...] as of this encounter (statuses as of 12/29/2021) Resolved Problems Problem Noted Date Resolved Date [...] as of this encounter (statuses as of 12/29/2021) Immunizations Name Administration Dates Next Due H1N1 [...] Encounters Date Type Specialty Care Team Description 12/30/2021 [facility] 58 60 [facility] [place] [address] 01/05/2022 Office Visit Otolaryngology John Johnson DO 132 [facility] [place] [address] 01/05/2022 Office Visit Audiology Marguerite Valle AuBernarda [address] [place] [address] 07/24/2022 Office Visit Pulmonary Jesus Bonilla MD [...] Documents on File Type Date Recorded Patient Product Mgr Expl 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 Advanced Directive 11/02/2011 12:00 AM Care Teams Custodian Manager Relationship Specialty Start Date End Date Roger Alexandra MD 132 [facility] [place] [address] PCP - General Family Medicine 12/29/19 documented as of this encounter
--- OUTSIDE RECORDS SUMMARY | 2023-07-25 04:45 | External Medical Summary ---
Author Name Unknown Address Unknown Organization K09:[facility] [place] [address] Laboratory Report Ordering Provider Test Date Status SINA ORTEGA 01/05/2022 06:10:00 Final Observation Date Value Abnormality Reference (Units ) Status PT 01/05/2022 06:10:00 24.3 Above high normal 11 .5-14.6 (seconds) Final INR 01/05/2022 06:10:00 2.18 Above high normal 0. 84-1.14 Final Performing Location [facility] [place] [address]
--- OUTSIDE RECORDS SUMMARY | 2023-07-25 04:45 | External Medical Summary | Summary of Care ---
Author Name Unknown Organization [place] [address] Care Team Providers Care Damage Cutter Name Role Phone Roger Alexandra MD Primary Care Provider [phone] [phone] Encounter Details Date Type Department Care Team Description 01/01/2022 Scan Encounter [facility] 132 [facility] [place] [address] Roger Alexandra MD 132 [facility] [place] [address] <No scans attached> Allergies Active Allergy Reactions [...] Active Cholestyramine Light (QUESTRAN LIGHT) 4 GM/DOSE POWDIndications:Colit is Take 1 Scoopful Dosing Unit by mouth 2 times a day. in 6oz of liquid . 210 g 3 03/05/2020 Active Albuterol Sulfate (PROAIR HFA) 108 (90 Base) MCG/ACT AERSIndications:Bronc hitis, complicated Inhale 2 Puffs by mouth 4 times a day. 18 g 1 03/26/2020 Active ondansetron (ZOFRAN) 4 MG Tablet Take 1 Tab by mouth every 8 hours as needed for Nausea. 15 Tab 0 06/07/2020 Active Albuterol Sulfate (2.5 MG/3ML) 0.083% Inhalation Nebulization Solution (PROVENTIL)Indication s:Bronchitis, complicated,COPD, severe (HCC) Inhale 1 Vial via nebulizer every 4 hours as needed for Wheezing. 20 mL 1 08/23/2020 Active Furosemide 20 MG Oral Tablet (Lasix) take 1 tablet by mouth once daily if needed (3LB WEIGHT GAIN OR LEG SWELLING) 30 Tab 2 02/09/2021 Active Disposable Brief X-LargeIndications:Ov eractive bladder Attends X-Large Super Absorb Underwear 32 Each 2 03/18/2021 Active guaiFENesin-Codeine 100-10 MG/5ML Oral Syrup (Robitussin AC) Take 5 mL by mouth every 4 hours as needed for Cough. 120 mL 0 04/23/2021 Active Vitamin D3 1.25 MG (12034 UT) Oral CapsuleIndications:Vi tamin D deficiency Take 1 Cap by mouth [...] Breath Activated (fluticasone Furoate) DAILY 0 05/25/2021 Act nina Anoro Ellipta 62.5-25 MCG/INH Inhalation Aerosol Powder Breath Activated (umeclidinium-vilante rol) Inhale 1 Puff by mouth daily. 30 Each 11 06/12/2021 Active Warfarin Sodium 5 MG Oral Tablet (Coumadin)Indications :Paroxysmal atrial fibrillation (HCC) Take 1.5-2 Tabs by mouth daily. As directed by coumadin clinic 180 Tab 1 08/18/2021 Active Nystatin 768125 UNIT/GM External Powder (Nyamyc) apply to affected area twice a day 15 g 1 11/04/2021 Active LORazepam 0.5 MG Oral Tablet (Ativan) Take by mouth 1 Tablet as needed in the morning AND 1 Tablet as needed at noon AND 1 Tablet as needed in the evening for Anxiety. 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 current use 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 0 06/01/2005 [...] Office Visit Otolaryngology John Johnson DO [address] [place] [address] 07/24/2022 Office Visit Pulmonary Jesus Bonilla MD [address] [place] [id number] Scheduled Procedures Name Priority Associated Diagnoses Date/Ti [...] on File Type Date Recorded Patient Senior Controls Technician Expl 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 Advanced Directive 11/02/2011 12:00 AM Care Teams Damage Cutter Relationship Specialty Start Date End Date Roger Alexandra MD [address] [place] [address] [place] [address] PCP - General Family Medicine 12/29/19 documented as of this encounter
--- OUTSIDE RECORDS SUMMARY | 2023-07-25 04:45 | External Medical Summary | Summary of Care ---
Author Name Unknown Organization [place] [address] Care Team Providers Care Lead Based Paint Technician Name Role Phone Roger Alexandra MD Primary Care Provider [phone] [phone] Encounter Details Date Type Department Care Team Description 01/05/2022 Orders Only Lab Mobile Phlebotomy [facility] [address] [place], [place] [id number] Joesph Byrne, DO [address] [place] [address] Routine medical exam* Allergies Active Allergy Reactions [...] 0 04/23/2021 Active Vitamin D3 1.25 MG (63240 UT) Oral CapsuleIndications:V itamin D deficiency Take [...] Inhalation Aerosol Powder Breath Activated (umeclidinium-vilant jose mratin) Inhale 1 Puff by mouth daily. 30 Each 11 06/12/2021 Active Warfarin Sodium 5 MG Oral Tablet (Coumadin)Indication s:Paroxysmal atrial fibrillation (HCC) Take 1.5-2 Tabs by mouth daily. As directed by coumadin clinic 180 Tab 1 08/18/2021 Active Nystatin 044936 UNIT/GM External Powder (Nyamyc) apply to affected [...] encounter Progress Notes * JOHNY Humphrey - 01/05/2022 10:10 PM EST PTINR documented in this encounter Plan of Treatment Upcoming Encounters Date Type Specialty Care Team Description 01/06/2022 Laboratory Laboratory Processing [facility] [address] [place] [address] 07/24/2022 Office Visit Pulmonary [facility]illa [facility] [address] [facility] [place] [address] Scheduled Orders Name Type Priority Associated Diagnoses Orde r Schedule PT INR Lab Routine Routine medical exam Expected: 01/06/2022, Expires: 3 Scheduled Procedures Name Priority Associated [...] Documents on File Type Date Recorded Patient Insurance Operations Rep Expl 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 Directive 11/02/2011 12:00 AM Care Teams Lead Based Paint Technician Relationship Specialty Start Date End Date Roger Alexandra MD [address] [facility] [place] [id number] PCP - General Family Medicine 12/29/19 documented as of this encounter
--- OUTSIDE RECORDS SUMMARY | 2023-07-25 04:46 | External Medical Summary | Summary of Care ---
Author Name Unknown Organization [facility] Address [place] [address] Care Team Providers Care Plywood Stock Grader Name Role Phone Roger Alexandra MD Primary Care Provider [phone] Reason for Visit * Reason Comments Dosage Adjustment Via Phone (anticoag Cl inic) Encounter Details Date Type Department Care Team Description 12/18/2021 Anticoagulation Pharmacy Call Center 58[address] [facility] [place] [address] Telepharmacy, [facility] [address] intermission coordinator current use 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* Allergies Active Allergy Reactions Severity Noted Date Comments Aspirin Unknown 12/12/2007 von Willebrand's disease Salicylates 03/01/2000 von Willebrand's disease documented as of this encounter (statuses as of 12/18/2021) Medications Medication Sig Dispensed Refills Start Date [...] 0 04/23/2021 Active Vitamin D3 1.25 MG (82251 UT) Oral CapsuleIndications:V itamin D deficiency Take [...] daily 30 Capsule 2 10/01/2021 Active Nystatin 496343 UNIT/GM External Powder (Nyamyc) apply to affected [...] as of this encounter (statuses as of 12/18/2021) Active Problems Problem Noted Date Chronic hypoxemic respiratory failure COPD, group B, [...] calories Oxygen dependent 12/29/2019 Acquired hypothyroidism 04/16/2015 Narcotic addiction 10/04/2014 Idiopathic cardiomyopathy 09/15/2013 Von Willebrand disease 03/10/2013 Patent foramen ovale 12/21/2008 Obstructive sleep apnea 07/05/2007 Overview: ICD-10 update of inactive term SIMA (generalized anxiety disorder) 02/08 Irritable bowel syndrome with diarrhea 0 04/13/2001 documented as of this encounter (statuses as of 12/18/2021) Resolved Problems Problem Noted Date Resolved Date Body mass index (BMI) of 40.0 to 44.9 in adult 1 12/29/2019 03/05/2021 Overview: Per Obesity protocol Hemiplegia 06/07/2020 10/14/2020 Venous stasis 04/16/2015 12/29/2019 MEDICATION USE AGREEMENT 01/29/2014 020 ADVANCE DIRECTIVE [...] CVA protocol #8 Chest pain 01/23/2009 05/01/2011 Chest pain, non-cardiac 12/12/2007 12/29/19 20 COPD, [...] as of this encounter (statuses as of 12/18/2021) Immunizations Name Administration Dates Next Due H1N1 [...] Progress Notes * Kim Mercado RPh - 12/18/2021 12:32 PM EST Medication Therapy Disease Management - Anticoagulation Patient: Kimberly Kendall : 1960 Contacts Type Contact Phone 12/18/2021 03:40 PM EST Phone (Outgoing) Kimberly Kendall (Self) [phone] (M) Spoke to Patient Patient-Reported Symptoms: Patient Findings Positives: Other complaints Negatives: Signs/symptoms of thrombosis, Signs/symptoms of bleeding, Change in health, Change in alcohol use, Change in activity, Upcoming invasive procedure, Missed doses, Extra doses, Change in medications, Change in diet/appetite, Bruising Comments: Pt discharged from [facility] to home. Pt discharged on 5mg Warfarin daily. INR at discharge was 2.79 Pt confirms she has 5mg tablets at home and still need GML. INR Result As of 12/18/2021 INR goal: 2.0-3.0 INR used for dosing: No new INR was available at the time of this encounter. Warfarin Plan As of 12/18/2021 Full warfarin instructions: 5 mg every day Next INR check: 12/25/2021 Additional Dosing Information: Description GML Repeat PT/INR in 1 week(s) Kim Mercado [facility] Clinical Pharmacist 12/18/2021, 3:39 PMs documented in this encounter Plan of Treatment Upcoming Encounters Date Type Specialty Care Team Description 12/19/2021 Office Visit Family Medicine Roger Alexandra MD [address] [place] [address] 12/26/20[facility] [place] [address] 07/24/2022 Office Visit Pulmonary Jesus Bonilla MD [address] [place] [address] Scheduled Procedures Name Priority Associated Diagnoses Date/Ti [...] visit until score < 10) 04/24/2021 04/23/2021 DIABETES SCREEN EVERY 3 YRS-AGE 45 AND [...] as of this encounter Visit Diagnoses Diagnosis intermission coordinator current use 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- Primary documented in this encounter Advance Directives Documents on File Type Date Recorded Patient Liquor Commissioner Expl 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 Advanced Directive 11/02/2011 12:00 AM Care Teams Plywood Stock Grader Relationship Specialty Start Date End Date Roger Alexandra MD [address] [place] [address] [place] [address] PCP - General Family Medicine 12/29/19 documented as of this encounter
--- OUTSIDE RECORDS SUMMARY | 2023-07-25 04:46 | External Medical Summary | Summary of Care ---
Author Name Unknown Organization [place] [address] Care Team Providers Care Operative Supervisor Name Role Phone Roger Alexandra MD Primary Care Provider [phone] Reason for Visit * Reason Onset Date Comments case management 12/23/2021 [facility] Encounter Details Date Type Department Care Team Description 12/23/2021 Tumbler Machine Operator Helper Telephone Family Practice [facility] [address] [place] [address] Cordelia Burns, RN 132 [facility] [place] [address] case management ([facility]) Allergies Active Allergy Reactions Severity Noted Date Comments Aspirin Unknown 12/12/2007 von Willebrand's disease Salicylates 03/01/2000 von Willebrand's disease documented as of this encounter (statuses as of 12/23/2021) Medications Medication Sig Dispensed Refills Start Date [...] 0 04/23/2021 Active Vitamin D3 1.25 MG (16488 UT) Oral CapsuleIndications:V itamin D deficiency Take [...] daily 30 Capsule 2 10/01/2021 Active Nystatin 499324 UNIT/GM External Powder (Nyamyc) apply to affected [...] as of this encounter (statuses as of 12/23/2021) Active Problems Problem Noted Date History of [...] as of this encounter (statuses as of 12/23/2021) Resolved Problems Problem Noted Date Resolved Date [...] as of this encounter (statuses as of 12/23/2021) Immunizations Name Administration Dates Next Due H1N1 [...] encounter Miscellaneous Notes * Telephone Encounter - Cordelia Burns RN - 12/23/2021 4:16 PM EST 1. Follow-up Post Discharge 2. Attempted Phone Call First Attempt 3. Call Unanswered Left Voicemail 4. Plan To attempt Follow-up documented in this encounter Plan of Treatment Upcoming Encounters Date Type Specialty Care Team Description 12/25/2021 Laboratory Laboratory Processing [facility] Mobile Home Draw [address] [place] [address] 12/26/2021 [facility] [address] [place] [address] 01/05/2022 Office Visit Otolaryngology John Johnson DO [facility] [address] 01/05/2022 Office Visit Audiology Marguerite Valle Au.D. 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
--- OUTSIDE RECORDS SUMMARY | 2023-07-25 04:46 | External Medical Summary | Summary of Care ---
Author Name Unknown Organization [facility] Address [place] [address] Care Team Providers Care Stretcher Leveler Operator Name Role Phone Roger Alexandra MD Primary Care Provider [phone] Encounter Details Date Type Department Care Team Description 12/16/2021 Scan Encounter Pharmacy Call Center [address] [place] [address] [facility] 60 [place] [address] <No scans attached> Allergies Active Allergy Reactions [...] 0 04/23/2021 Active Vitamin D3 1.25 MG (43852 UT) Oral CapsuleIndications:V itamin D deficiency Take [...] daily 30 Capsule 2 10/01/2021 Active Nystatin 308760 UNIT/GM External Powder (Nyamyc) apply to affected [...] Pain, Severe. 90 Tablet 0 12/17/2021 Active documented as of this encounter [...] Family Medicine Roger Alexandra MD [address] [place] [address] 07/24/2022 Office Visit Pulmonary Jesus Bonilla MD [...] Documents on File Type Date Recorded Patient [employer] Library Media Specialist Expl 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 Advanced Directive 11/02/2011 12:00 AM Care Teams Stretcher Leveler Operator Relationship Specialty Start Date End Date Roger Alexandra MD 132 [facility] [place] [phone] PCP - General Family Medicine 12/29/19 documented as of this encounter
--- OUTSIDE RECORDS SUMMARY | 2023-07-25 04:46 | External Medical Summary | Summary of Care ---
Author Name Unknown Organization [place] [address] Care Team Providers Care Svp Of Digital Name Role Phone Roger Alexandra MD Primary Care Provider [phone] [phone] Reason for Visit * Reason Onset Date Comments Referral 12/19/2021 ENT Encounter Details Date Type Department Care Team Description 12/19/2021 Telephone Family Practice [facility] [address] [place] [address] Roger Alexandra MD 132 [facility] [place] [address] Referral (ENT) Allergies Active Allergy Reactions Severity Noted Date [...] 0 04/23/2021 Active Vitamin D3 1.25 MG (79731 UT) Oral CapsuleIndications:V itamin D deficiency Take [...] daily 30 Capsule 2 10/01/2021 Active Nystatin 997647 UNIT/GM External Powder (Nyamyc) apply to affected [...] * Telephone Encounter - RUFINA Perrin - 12/23/2021 10:21 AM EST Taken care of [place] * Telephone Encounter - RUFINA Kennedy - 12/19/2021 3:43 PM EST Appt scheduled for 01/28. Pt asking if theres anything sooner? documented in this encounter Plan of Treatment Upcoming Encounters Date Type Specialty Care Team Description 12/25/2021 Laboratory Laboratory Processing [facility] Mobile Home Draw [address] [place] [address] 12/26/2021 [facility] [address] [place] [address] 01/05/2022 Office Visit [facility] [place] [address] 01/05/2022 Office Visit Audiology Marguerite Valle Au.D. [address] [place] [address] 07/24/2022 Office Visit Pulmonary Jesus Bonilla MD [address] [place] [address] Scheduled Procedures Name Priority Associated Diagnoses Date/Ti [...] Documents on File Type Date Recorded Patient Electrician Second Expl 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 Advanced Directive 11/02/2011 12:00 AM Care Teams Svp Of Digital Relationship Specialty Start Date End Date Roger Alexandra MD [address] [place] [address] [place] [address] PCP - General Family Medicine 12/29/19 documented as of this encounter
--- OUTSIDE RECORDS SUMMARY | 2023-07-25 04:46 | External Medical Summary | Summary of Care ---
Author Name Unknown Organization [place] [address] Care Team Providers Care Smutter Name Role Phone Roger Alexandra MD Primary Care Provider [phone] Reason for Referral * Evaluate & Treat - Unlimited Visits (Within 30 days (routine)) - Authorized Specialty Diagnoses / Procedures Referred By Contac t Referred To Contact Otolaryngology Diagnoses Chronic diffuse otitis externa of both ears Roger Alexandra MD [address] [facility] [place] [address] Referral ID Status Reason Start Date Expiration Date Visits Requested Visits Authorized [id number] Authorized Specialty Services Required 12/19/2021 1 1 Question Answer Referral Priority Within 30 days (routine) Reason for Referral: Otology/Hearing/Balance Specific Condition: Chronic ear disease Reason for Visit * Reason Onset Date Comments Hospital Follow-Up f/u for covid pneumonia, pt reports of wound on right forearm onset 11/20/2021. Hospital Follow-Up 12/19/2021 Encounter Details Date Type Department Care Team Description 12/19/2021 Office Visit [facility] [address] [place] [address] Roger Alexandra MD [address] [place] [address] Hospital discharge follow-up*; History of 2019 novel coronavirus disease (COVID-19); COPD, group B, by GOLD 2017 classification (HCC); Oxygen dependent; Chronic hypoxemic respiratory failure (HCC); Morbid obesity due to excess calories (HCC); Paroxysmal atrial fibrillation (HCC); Moderate episode of recurrent major depressive disorder (HCC); SIMA (generalized anxiety disorder); PTSD (post-traumatic stress disorder); History of multiple strokes; Chronic bilateral low back pain without sciatica; Chronic diffuse otitis externa of both ears Allergies Active Allergy Reactions Severity Noted Date Comments Aspirin Unknown 12/12/2007 von Willebrand's disease Salicylates 03/01/2000 von Willebrand's disease documented as of this encounter (statuses as of 12/19/2021) Medications Medication Sig Dispensed Refills Start Date [...] 0 04/23/2021 Active Vitamin D3 1.25 MG (17924 UT) Oral CapsuleIndications:V itamin D deficiency Take [...] daily 30 Capsule 2 10/01/2021 Active Nystatin 918249 UNIT/GM External Powder ([facility]) apply to affected area twice a [...] as of this encounter (statuses as of 12/19/2021) Active Problems Problem Noted Date History of [...] as of this encounter (statuses as of 12/19/2021) Resolved Problems Problem Noted Date Resolved Date [...] as of this encounter (statuses as of 12/19/2021) Immunizations Name Administration Dates Next Due H1N1 [...] Sign Reading Time Taken Comments Blood Pressure 110/68 12/19/2021 3:24 PM EST Pulse - - Temperature 37.3 C (99.2 F) 12/19/2021 3:24 PM ES T Respiratory Rate - - Oxygen Saturation - - Inhaled Oxygen Concentration - - Weight - - Height 157.5 cm (5' 2.01") 12/19/2021 3:24 PM ES T Body Mass Index - - documented in this encounter Progress Notes * Roger Alexandra MD - 12/19/2021 3:29 PM EST SUBJECTIVE: Kimberly Kendall is a 61 year old female. Chief Complaint Patient presents with Hospital Follow-Up f/u for covid pneumonia, pt reports of wound on right forearm onset 11/20/2021. Hospital Follow-Up Recent Admission: Patient was recently admitted to [facility], then [facility]. The date of discharge was 12/12/21 ([facility]). Discharge report received and reviewed. HPI: This is a 61 year old female with multiple medical and mental health problems who is unvaccinated against COVID-19 who comes in today accompanied by her niece for a hospital follow up. She was treated for covid at [facility] where she was eventually stabilized and then transferred to [facility] for rehab. She is oxygen dependent at baseline. In spite of her most recent experience with covid, she isstill unsure if she wants the covid-19 vaccine. I attempted education again today. She recently saw her psychiatrist via televisit who started her on Remeron. Her niece notes that they have yet to pickling grader that prescription. In spite of her recent bout with covid, her mood is happier today than when I have seen her in the past. She does have chronic pain and uses tramadol prn. Shehas a healing wound on the right forearm that is a result of a skin tear she sustained while in rehab. Patient Active Problem List Diagnosis Code Irritable bowel syndrome with diarrhea K58.0 SIMA (generalized anxiety disorder) F41.1 Obstructive sleep apnea G47.33 Von Willebrand disease (HCC) D68.0 Idiopathic cardiomyopathy (HCC) I42.8 Acquired hypothyroidism E03.9 Oxygen dependent Z99.81 Moderate episode of recurrent major depressive disorder (HCC) F33.1 Morbid obesity due to excess calories (HCC) E66.01 Non compliance w medication regimen Z91.14 Chronic bilateral low back pain without sciatica M54.50, G89.29 Paroxysmal atrial fibrillation (HCC) I48.0 Drug-seeking behavior Z76.5 History of multiple strokes Z86.73 Grade I diastolic dysfunction I51.89 PTSD (post-traumatic stress disorder) F43.10 COPD, group B, by GOLD 2017 classification ([facility]) J44.9 Chronic hypoxemic respiratory failure ([facility]) J96.11 History of narcotic addiction ([facility]) F11.21 Current Outpatient Medications Medication Sig Dispense Refill OXYGEN 4 L during the day as needed and at bedtime Acetaminophen (TYLENOL) 325 MG CAPS Take by mouth. Cholestyramine Light (QUESTRAN LIGHT) 4 GM/DOSE POWD Take 1 Scoopful Dosing Unit by mouth 2 times a day. in 6oz of liquid . 210 g 3 Albuterol Sulfate (PROAIR HFA) 108 (90 Base) MCG/ACT AERS Inhale 2 Puffs by mouth 4 times a day. 18 g 1 ondansetron (ZOFRAN) 4 MG Tablet Take 1 Tab by mouth every 8 hours as needed for Nausea. 15 Tab0 Albuterol Sulfate (2.5 MG/3ML) 0.083% Inhalation Nebulization Solution (PROVENTIL) Inhale 1 Vial via nebulizer every 4 hours as needed for Wheezing. 20 mL 1 Furosemide 20 MG Oral Tablet (Lasix) take 1 tablet by mouth once daily if needed (3LB WEIGHT GAIN OR LEG SWELLING) 30 Tab 2 Disposable Brief X-Large Attends X-Large Super Absorb Underwear 32 Each 2 guaiFENesin-Codeine 100-10 MG/5ML Oral Syrup (Robitussin AC) Take 5 mL by mouth every 4 hours as needed for Cough. 120 mL 0 Vitamin D3 1.25 MG (34632 UT) Oral Capsule Take 1 Cap by mouth once a week. 4 Cap 3 Vitamin D (Cholecalciferol) 25 MCG (1000 UT) Oral Capsule Take 1 Cap by mouth daily. 30 Cap 5 Isosorbide Mononitrate ER 30 MG Oral Tablet Extended Release 24 Hour (Imdur) take 1 tablet by mouth daily 30 Tab 5 Arnuity Ellipta 100 MCG/ACT Inhalation Aerosol Powder Breath Activated (fluticasone Furoate) DAILY Anoro Ellipta 62.5-25 MCG/INH Inhalation Aerosol Powder Breath Activated (umeclidinium-vilanterol) Inhale 1 Puff by mouth daily. 30 Each 11 FLUoxetine HCl 40 MG Oral Capsule (PROzac) Take 1 Cap by mouth daily. In the morning. 30 Cap 2 Warfarin Sodium 5 MG Oral Tablet (Coumadin) Take 1.5-2 Tabs by mouth daily. As directed by coumadin clinic 180 Tab 1 busPIRone HCl 10 MG Oral Tablet (Buspar) Take 1 Tab by mouth 2 times a day. 60 Tab 2 FLUoxetine HCl 20 MG Oral Capsule (PROzac) Take 1 Capsule by mouth daily. In addition to 40mg cap for a total of 60mg daily 30 Capsule 2 Nystatin 677906 UNIT/GM External Powder (Nyamyc) apply to affected area twice a day 15 g 1 LORazepam 0.5 MG Oral Tablet (Ativan) Take by mouth 1 Tablet as needed in the morning AND 1 Tablet as needed at noon AND 1 Tablet as needed in the evening for Anxiety. 90 Tablet 1 traMADol HCl 100 MG Oral Tablet Take by mouth 100 mg every 8 hours as needed for Pain, Moderateor Pain, Severe. 90 Tablet 0 Mirtazapine 7.5 MG Oral Tablet (Remeron) Take by mouth 1 Tablet before bedtime. 30 Tablet 1 No current facility-administered medications for this visit. Current and discharge medications have been reconciled. Review of patient's allergies indicates: Allergen Reactions Aspirin Unknown von Willebrand's disease Salicylates von Willebrand's disease OBJECTIVE: BP 110/68 | Temp 37.3 C (99.2 F) (Tympanic) | Ht 1.575 m (5' 2.01") | BMI 46.99 kg/m | BSA 2.26 m PHYSICAL EXAM: General: alert and obese, in wheelchair, using supplemental O2 Head: Normocephalic, No masses, lesions, tenderness or abnormalities Heart: regular rate & rhythm, no murmurs and no gallops Lungs: chest symmetric with normal AP diameter, no chest deformities noted, no chest wall tenderness, lungs clear to auscultation Abdomen: abdomen soft, non-tender, normal bowel sounds and no masses or organomegaly Extremities: less than 2 second capillary refill, no joint deformities, effusion, or inflammation Skin: circular wound on right forearm with good granulation; no signs of active infection ASSESSMENT: Hospital discharge follow-up (Primary) - DISCH MED RECON CUR MED LIS History of 2019 novel coronavirus disease (COVID-19) -was treated at [facility] -attempts at education were given again today in regards to her need for the covid vaccination -she remains in the precontemplative stages of considering vaccination in spite of her recent illness with the virus COPD, group B, by GOLD 2017 classification (HCC) Oxygen dependent Chronic hypoxemic respiratory failure (HCC) Morbid obesity due to excess calories (HCC) Paroxysmal atrial fibrillation (HCC) Moderate episode of recurrent major depressive disorder (HCC) SIMA (generalized anxiety disorder) PTSD (post-traumatic stress disorder) History of multiple strokes Chronic bilateral low back pain without sciatica Chronic diffuse otitis externa of both ears - OTOLARYNGOLOGY REFERRAL OP (niece wants her referred) Follow Up: Return if symptoms worsen or fail to improve. PLAN: Continue present medication(s): Follow up as needed. Roger Alexandra MD documented in this encounter Nursing Notes * RANDI Jones - 12/19/2021 3:27 PM EST Chief Complaint Patient presents with Hospital Follow-Up f/u for covid pneumonia, pt reports of wound on right forearm onset 11/20/2021. documented in this encounter Plan of Treatment Upcoming Encounters Date Type Specialty Care Team Description 12/25/2021 Laboratory Laboratory Processing [facility] Mobile Home Draw [address] [place] [address] 12/26/2021 [facility] [address] [place] [address] 01/28/2022 Office Visit Otolaryngology John Johnson DO 132 [facility] [place] [address] Tresa Chappell Au.D. [address] [place] [address] 07/24/2022 Office Visit Pulmonary Jesus Bonilla MD [address] [facility] [place] [address] Scheduled Procedures Name Priority Associated Diagnoses Date/Ti me COLONOSCOPY FLEXIBLE PROXIMAL DIAGNOSTIC Recall History of colon polyps Scheduled Referrals Name Type Priority Associated Diagnoses Order Schedule OTOLARYNGOLOGY REFERRAL OP Referral Within 30 days (routine) Chronic diffuse otitis externa of both ears Ordered: 12/19/2021 Health Maintenance Due Date Last Done Comments [...] Hospital discharge follow-up- Primary Other follow-up examination History of 2018 novel coronavirus disease (COVID-19) COPD, group B, by GOLD 2017 classification (HCC) Oxygen dependent Dependence on supplemental oxygen Chronic hypoxemic respiratory failure (HCC) Chronic respiratory failure Morbid obesity due to excess calories (HCC) Paroxysmal atrial fibrillation (HCC) Atrial fibrillation Moderate episode of recurrent major depressive disorder (HCC) SIMA (generalized anxiety disorder) Generalized anxiety disorder PTSD (post-traumatic stress disorder) Posttraumatic stress disorder History of multiple strokes Chronic bilateral low back pain without sciatica Chronic diffuse otitis externa of both ears documented in this encounter Advance Directives Documents on File Type Date Recorded Patient User Experience Manager Expl 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 Advanced Directive 11/02/2011 12:00 AM Care Teams Smutter Relationship Specialty Start Date End Date Roger Alexandra MD [address] [place] [address] [place] [address] PCP - General Family Medicine 12/29/19 documented as of this encounter
--- OUTSIDE RECORDS SUMMARY | 2023-07-25 04:46 | External Medical Summary | Summary of Care ---
Author Name Unknown Organization [place] [address] Care Team Providers Care Service Line Layer Name Role Phone Roger Alexandra MD Primary Care Provider [phone] Encounter Details Date Type Department Care Team Description 12/29/2021 Orders Only Family Practice [facility] 132 [facility] [place] [address] Roger Alexandra MD 132 [facility] [place] [address] Allergies Active Allergy Reactions Severity Noted Date [...] 0 04/23/2021 Active Vitamin D3 1.25 MG (64541 UT) Oral CapsuleIndications:V itamin D deficiency Take [...] daily 30 Capsule 2 10/01/2021 Active Nystatin 586850 UNIT/GM External Powder (Nyamyc) apply to affected [...] Date Type Specialty Care Team Description 12/30/2021 [facility] 58 60 [facility] [place] [address] 01/05/2022 Office Visit Otolaryngology John Johnson DO 132 [facility] [place] [address] 01/05/2022 Office Visit Audiology Marguerite Valle AuBernarda [address] [place] [address] 07/24/2022 Office Visit Pulmonary Jesus Bonilal MD [address] [place] [address] Scheduled [...] Name Priority Date/Time Associated Diagnosis Comments OUTSIDE LAB-CORONAVIRUS (COVID-19) Routine 12/27/2021 documented in this encounter Results * OUTSIDE LAB-CORONAVIRUS (COVID-19) (12/27/2021) [id number] LAB POSITIVE A NEGATIVE OUTSIDE LAB (SEE SCANNED REPORT) Specimen Narrative OUTSIDE LAB (SEE SCANNED REPORT) documented in this encounter Advance Directives Documents on File Type Date Recorded Patient Sample Maker Original Expl 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 Advanced Directive 11/02/2011 12:00 AM Care Teams Service Line Layer Relationship Specialty Start Date End Date Roger Alexandra MD [address] [place] [address] PCP - General Family Medicine 12/29/19 documented as of this encounter
--- OUTSIDE RECORDS SUMMARY | 2023-07-25 04:46 | External Medical Summary | Summary of Care ---
Author Name Unknown Organization [place] [address] Care Team Providers Care Coding Support Specialist Name Role Phone Roger Alexandra MD Primary Care Provider [phone] [phone] Encounter Details Date Type Department Care Team Description 12/27/2021 Scan Encounter [facility] 132 [facility] [place] [address] Roger Alexandra MD 132 [facility] [place] [address] <No scans attached> Allergies Active Allergy Reactions [...] 0 04/23/2021 Active Vitamin D3 1.25 MG (99342 UT) Oral CapsuleIndications:V itamin D deficiency Take [...] daily 30 Capsule 2 10/01/2021 Active Nystatin 297542 UNIT/GM External Powder (Nyamyc) apply to affected [...] Date Type Specialty Care Team Description 12/30/2021 [facility] 58 60 [facility] [place] [address] 01/05/2022 Office Visit Otolaryngology John Johnson DO 132 [facility] [place] [address] 01/05/2022 Office Visit Audiology Marguerite Valle AuBernarda [address] [place] [address] 07/24/2022 Office Visit Pulmonary Jesus Bonilla MD [...] Documents on File Type Date Recorded Patient Automotive Internet Sales Consultant Expl 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 Advanced Directive 11/02/2011 12:00 AM Care Teams Coding Support Specialist Relationship Specialty Start Date End Date Roger Alexandra MD 132 [facility] [place] [address] PCP - General Family Medicine 12/29/19 documented as of this encounter
--- OUTSIDE RECORDS SUMMARY | 2023-07-25 04:46 | External Medical Summary | Summary of Care ---
Author Name Unknown Organization [place] [address] Care Team Providers Care Carton Repairer Name Role Phone Roger Alexandra MD Primary Care Provider [phone] [phone] Reason for Visit * Reason Comments Acute breathing issues, we ak, dizziness. patient reports "it feels like something is stuck in my throat" Encounter Details Date Type Department Care Team Description 12/26/2021 Office Visit Family [facility] 132 [facility] [place] [address] Tracey Fong CRNP 132 [facility] [place] [address] Dyspnea, unspecified type*; Generalized weakness Allergies Active Allergy Reactions Severity Noted Date Comments Aspirin Unknown 12/12/2007 von Willebrand's disease Salicylates 03/01/2000 von Willebrand's disease documented as of this encounter (statuses as of 12/26/2021) Medications Medication Sig Dispensed Refills Start Date [...] 0 04/23/2021 Active Vitamin D3 1.25 MG (02799 UT) Oral CapsuleIndications:V itamin D deficiency Take [...] daily 30 Capsule 2 10/01/2021 Active Nystatin 754678 UNIT/GM External Powder (Nyamyc) apply to affected [...] as of this encounter (statuses as of 12/26/2021) Active Problems Problem Noted Date History of [...] as of this encounter (statuses as of 12/26/2021) Resolved Problems Problem Noted Date Resolved Date [...] as of this encounter (statuses as of 12/26/2021) Immunizations Name Administration Dates Next Due H1N1 [...] Date Former Smoker Cigarettes 0.25 32 Quit: 03/05 /2015 Smokeless Tobacco: Never Used Comments:will only try [...] Sign Reading Time Taken Comments Blood Pressure 100/58 12/26/2021 4:12 PM EST Pulse 93 12/26/2021 4:56 PM EST Temperature 36.3 C (97.3 F) 12/26/2021 4:12 PM ES T Respiratory Rate - - Oxygen Saturation 95% 12/26/2021 4:56 PM EST Inhaled Oxygen Concentration - - Weight - - Height 157.5 cm (5' 2.01") 12/26/2021 4:12 PM ES T Body Mass Index - - documented in this encounter Progress Notes * COY Keita - 12/26/2021 4:28 PM EST Nursing Notes: [facility] Weems, [facility] 12/26/21 1634 Signed Chief Complaint Patient presents with Acute breathing issues, weak, dizziness. patient reports "it feels like something is stuck in my throat" ASSESSMENT/PLAN: 1. Dyspnea, unspecified type - Recommend ER given exam, symptoms. Patient's [facility] to transport her via private vehicle. 2. Generalized weakness - As above HPI: Kimberly Kendall is a 61 year old female who presents today for evaluation of increasing weakness and dyspnea for past few days. [facility] after being treated for pneumonia at [facility] and subsequent rehab at [facility]. Has had home health coming to check on her, they became concerned about her weakness and low blood pressures during their visits. Getting dizzy, lightheaded, and having some headaches. Difficulty speaking more than a word or two without having to stop and catch her breath. On 3L O2. Uses a walker at home but needed to use wheelchair to get from car to office. She lives by herself, family checks in on her twice a day along with home health visits. She is not sure what inhalers she is using, thinks it is the elliptas. Not using albuterol because it makes her heart race. She is incontinent but possibly having some burning with urination. Unable to give sample in office. Eating and drinking ok, but having diarrhea. No blood in stools. Denies fevers, chills, nausea, vomiting. ROS: See HPI for pertinent ROS PHYSICAL EXAMINATION: BP 100/58 | Pulse 93 | Temp 36.3 C (97.3 F) (Tympanic) | Ht 1.575 m (5' 2.01") | SpO2 95% | BMI46.99 kg/m | BSA 2.26 m GENERAL: alert LUNGS: + wheezing throughout all lung mena. No crackles or rhonchi. Inspirations labored. CV: RRR. No lower extremity edema. SKIN: Appears pale NEURO: alert & oriented x 3. Moves all extremities. PSYCH: appropriately dressed, logical thought Patient Active Problem List Diagnosis Code Irritable bowel syndrome with diarrhea K58.0 SIMA (generalized anxiety disorder) F41.1 Obstructive sleep apnea G47.33 Von Willebrand disease ([facility]) D68.0 Idiopathic cardiomyopathy ([facility]) I42.8 Acquired hypothyroidism E03.9 Oxygen dependent Z99.81 Moderate episode of recurrent major depressive disorder ([facility]) F33.1 Morbid obesity due to excess calories ([facility]) E66.01 Non compliance w medication regimen Z91.14 Chronic bilateral low back pain without sciatica M54.50, G89.29 Paroxysmal atrial fibrillation ([facility]) I48.0 Drug-seeking behavior Z76.5 History of multiple strokes Z86.73 Grade I diastolic dysfunction I51.89 PTSD (post-traumatic stress disorder) F43.10 COPD, group B, by GOLD 2017 classification ([facility]) J44.9 Chronic hypoxemic respiratory failure ([facility]) J96.11 History of narcotic addiction ([facility]) F11.21 Past Medical History: Diagnosis Date Back [...] to excess calories (HCC) 03/05/2020 Narcotic addiction ([facility]) 10/04/2014 Non compliance w medication regimen 10/14/2020 Oxygen dependent 12/29/2019 Paroxysmal atrial fibrillation (HCC) 10/14/2020 Patent foramen ovale PTSD (post-traumatic stress disorder) 03/05/2021 Schizoaffective disorder, chronic condition ([facility]) followed Dr Robby Diego [facility] Sequelae, post-stroke CVA Status asthmaticus Von Willebrand's disease ([facility]) Past Surgical History: Procedure Laterality Date COLONOSCOPY, DIAGNOSTIC (RECTUM) 11/12/2020 large adenomatous polyp, repeat 6 mo / [facility] COLONOSCOPY, W/BIOPSY 10/06/2010 adenomatous/repeat colonoscopy in 1 yr COLONOSCOPY, W/BIOPSY 05/22/2013 hyperplastic polyp EGD, FLEXIBLE, DIAGNOSTIC 02/26/2015 retained food/[facility] EGD, FLEXIBLE, DIAGNOSTIC 11/12/2020 Gastric submucosal mass / [facility] EGD, FLEXIBLE, DIAGNOSTIC 11/06/2020 gastritis / [facility] EGD, FLEXIBLE, W/BIOPSY 05/19/2013 EGD, W/ENDOSCOPIC US 11/05/2011 UPPER GI ENDOSCOPY ENDOSCOPIC ULTRASOUND performed by BERENICE ASHBY at [facility]; REPAIR INITIAL INGUINAL HERNIA REMOVE GALLBLADDER TOTAL HYSTERECTOMY and bso Current Outpatient Medications Medication Sig Dispense Refill [...] 120 mL 0 Vitamin D3 1.25 MG (74090 UT) Oral Capsule Take 1 Cap by [...] of 60mg daily 30 Capsule 2 Nystatin 859135 UNIT/GM External Powder (Nyamyc) apply to affected [...] von Willebrand's disease Salicylates von Willebrand's disease COY Keita Family [facility] 132 [facility] [address] I spent a total of 20-29 minutes (exact time 25 mins) on the date of service in preparation, delivery, and documentation of the care provided to Kimberly Kendall excluding any time spent in the performance of separately billed services. documented in this encounter Nursing Notes * RANDI Jones - 12/26/2021 4:15 PM EST Chief Complaint Patient presents with Acute breathing issues, weak, dizziness. patient reports "it feels like something is stuck in my throat" documented in this encounter Plan of Treatment Upcoming Encounters Date Type Specialty Care Team Description 12/30/2021 [facility] 58 60 [facility] [address] 01/05/2022 Office Visit Otolaryngology John Johnson DO 132 [facility] [place] [address] 01/05/2022 Office Visit Audiology Marguerite Valle Au.D. [address] [facility] [address] 07/24/2022 Office Visit Pulmonary Jesus Bonilla MD [address] [place] [address] Scheduled Procedures Name Priority Associated Diagnoses Date/Ti [...] ASSESSMENT COMPLETED IN PAST YEAR FOR COPD 11/11/2022 12/26/2021 DIABETES SCREEN EVERY 3 YRS-AGE 45 [...] as of this encounter Visit Diagnoses Diagnosis Dyspnea, unspecified type- Primary Generalized weakness Other malaise and fatigue documented in this encounter Advance Directives Documents on File Type Date Recorded Patient Bend Up Expl 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 Advanced Directive 11/02/2011 12:00 AM Care Teams Carton Repairer Relationship Specialty Start Date End Date Roger Alexandra MD [facility] [place] [address] PCP - General Family Medicine 12/29/19 documented as of this encounter
--- OUTSIDE RECORDS SUMMARY | 2023-07-25 04:46 | External Medical Summary | Summary of Care ---
Author Name Unknown Organization [facility] Address [place] [address] Care Team Providers Care Gardener Florist Name Role Phone Roger Alexandra MD Primary Care Provider [phone] [phone] Reason for Visit * Reason Comments Dosage Adjustment Via Phone (anticoag Cl inic) Encounter Details Date Type Department Care Team Description 12/26/2021 Anticoagulation Pharmacy Call Center 58-60 [facility] [place] [address] Telepharmacy, [facility] [address] [facility] [address] Anticoagulation management encounter* Allergies Active Allergy Reactions [...] 0 04/23/2021 Active Vitamin D3 1.25 MG (06740 UT) Oral CapsuleIndications:V itamin D deficiency Take [...] daily 30 Capsule 2 10/01/2021 Active Nystatin 299838 UNIT/GM External Powder (Nyamyc) apply to affected [...] Progress Notes * DANIEL Laboy Tech - 12/26/2021 7:55 AM EST GML was unable to obtain labs at yesterday's appointment, will reschedule for Friday 12/29. Mar Medellin Firer Locomotive 12/26/2021,7:55 AM documented in this encounter Plan of Treatment Upcoming Encounters Date Type Specialty Care Team Description 12/26/2021 Office Visit Family Medicine Tracey Fong CRNP 132 [facility] [place] [address] 12/30/2021 [facility] 58 [address] [place] [address] 01/05/2022 Office Visit Otolaryngology John Johnson DO 132 [facility] [place] [address] 01/05/2022 Office Visit Audiology Marguerite [facility].D. [address] [facility] [address] 07/24/2022 Office Visit Pulmonary Jesus Bonilla MD [address] [place] [id number] Scheduled Procedures Name Priority Associated Diagnoses Date/Ti [...] COMPLETED IN PAST YEAR FOR COPD 11/11/2022 11/11/2021 DIABETES SCREEN EVERY 3 YRS-AGE 45 AND [...] Documents on File Type Date Recorded Patient Barrel Lathe Operator Inside Expl 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 Advanced Directive 11/02/2011 12:00 AM Care Teams Gardener Florist Relationship Specialty Start Date End Date Roger Alexandra MD [address] [place] [address] [place] [address] PCP - General Family Medicine 12/29/19 documented as of this encounter
--- OUTSIDE RECORDS SUMMARY | 2023-07-25 04:46 | External Medical Summary | Summary of Care ---
Author Name Unknown Organization [facility] [place] [address] Care Team Providers Care News Production Assistant Name Role Phone Roger Alexandra MD Primary Care Provider [phone] [phone] Reason for Visit * Reason Onset Date Comments case management 12/24/2021 CM FU Encounter Details Date Type Department Care Team Description 12/24/2021 Belt Back Operator Telephone Family Practice [facility] [address] [place] [address] Cordelia Burns, RN 132 [facility] [place] [address] case management (CM FU) Allergies Active Allergy Reactions Severity Noted Date Comments Aspirin Unknown 12/12/2007 von Willebrand's disease Salicylates 03/01/2000 von Willebrand's disease documented as of this encounter (statuses as of 12/24/2021) Medications Medication Sig Dispensed Refills Start Date [...] 0 04/23/2021 Active Vitamin D3 1.25 MG (97117 UT) Oral CapsuleIndications:V itamin D deficiency Take [...] daily 30 Capsule 2 10/01/2021 Active Nystatin 025879 UNIT/GM External Powder (Nyamyc) apply to affected [...] as of this encounter (statuses as of 12/24/2021) Active Problems Problem Noted Date History of [...] as of this encounter (statuses as of 12/24/2021) Resolved Problems Problem Noted Date Resolved Date [...] as of this encounter (statuses as of 12/24/2021) Immunizations Name Administration Dates Next Due H1N1 [...] Telephone Encounter - Cordelia Burns RN - 12/24/2021 10:12 AM EST Case Management Assessment Is this call for a hospital, detention or rehab facility discharge to home? Yes Pt with hospitaladmission and [facility] discharge after Covid 19. S: Reports: spoke with patient briefly, she notes that talking is increasing her usual SOB today. Wears oxygen all the time from prior to hospitalization. Reports that she is still not good, thinks she was sent home from Rehab too soon. She has spoken with Sandy/SAAD NORMAN and she is to have a caregiver starting soon. HH is following her at home too. Cough, nonproductive, and ongoing prior to Covid. Review of Dr Alexandra's notes. She is not vaccinated and has not agreed to vaccination at this time. Chest pain denies Increased shortness of breath: dyspnea with daily activities Chills / Sweats / Fever: denies chills/sweats and denies fever Medications: Granddaughter manages her medications. She does not know the names. O: Phone visit for RAYSHAWN assessment.. Medications: granddaughter manages medications. Does this patient qualify for an annual wellness visit? No A: Patient Centered Prioritized Goals: Patient and caregiver demonstrate basic understanding of their disease process. Identified Barriers: recent hospitalization, Psychological impairment, Older than 70 years, Poor/inadequate support and Unrealistic goals or expectations FUNCTIONAL STATUS: (Definition - assess ability to patient to manage their own care, includes evaluation of activities of daily living, and instrumental activities of daily living, and cognitive abilities status) ADL'S - Needs Assistance With: Bathing and Dressing IADL'S - Needs Assistance With: Grocery Shopping, Cooking food, Routine Housework, Taking medications, Attending to safety and Managing money Cognitive and Mental Health: alert and oriented x 3 and able to communicate, understand some instructions, process some information P: Belt Back Operator Interventions: Will enroll in PDVR wkly x 4. Reinforce Self Management Action Plan established at previous visit Reinforced safety education / fall prevention Reinforced medication regimen - timing / dosing / purpose PCP Notified of enrollment in CM/HM program: No SNP Member? No Re-evaluation of plan of care and progress towards goals achievement: Plan to Enroll in PDIVR wkly x4, instructed to call Belt Back Operator or Primary Care Provider with change in symptoms or as needed before next follow-up Cordelia Burns RN (Kori), BSN, [facility] Belt Back Operator [phone] documented in this encounter Plan of Treatment Upcoming Encounters Date Type Specialty Care Team Description 12/25/2021 Laboratory Laboratory Processing [facility], [facility] Mobile Home Draw [address] [place] [address] 12/26/2021 [facility] 58 [address] [place] [address] 01/05/2022 Office Visit Otolaryngology John Johnson, [address] [place] [address] 01/05/2022 Office Visit Audiology Marguerite Valle Au.D. [address] [place] [address] 07/24/2022 Office Visit Pulmonary Jesus Bonilla MD [address] [place] [phone] Scheduled Procedures Name Priority Associated Diagnoses Date/Ti [...] Documents on File Type Date Recorded Patient Farm Implement Engine Mechanic Expl 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 Advanced Directive 11/02/2011 12:00 AM Care Teams News Production Assistant Relationship Specialty Start Date End Date Roger Alexandra MD [address] [place] [address] PCP - General Family Medicine 12/29/19 documented as of this encounter
--- OUTSIDE RECORDS SUMMARY | 2023-07-25 04:47 | External Medical Summary | Summary of Care ---
Author Name Unknown Organization [place] [address] Care Team Providers Care Corporate Auditor Name Role Phone Roger Alexandra MD Primary Care Provider [phone] [phone] Encounter Details Date Type Department Care Team Description 12/14/2021 Orders Only Lab Mobile Phlebot[facility] [address] [place], [place] [id number] Benedicto Fowler MD [address] [place], [place] [id number] Routine medical exam* Allergies Active Allergy Reactions Severity Noted Date Comments Aspirin Unknown 12/12/2007 von Willebrand's disease Salicylates 03/01/2000 von Willebrand's disease documented as of this encounter (statuses as of 12/14/2021) Medications Medication Sig Dispensed Refills Start Date [...] 0 04/23/2021 Active Vitamin D3 1.25 MG (20879 UT) Oral CapsuleIndications:V itamin D deficiency Take [...] a day. 60 Tab 2 09/08/2021 Active LORazepam 0.5 MG Oral Tablet (Ativan) Take 1 Tablet by mouth 3 times a day as needed for Anxiety. 90 Tablet 1 10/08/2021 Active FLUoxetine HCl 20 MG Oral Capsule (PROzac) Take 1 Capsule by mouth daily. In addition to 40mg cap for a total of 60mg daily 30 Capsule 2 10/01/2021 Active traMADol HCl 100 MG Oral TabletIndications:Ch ronic bilateral low back pain without sciatica Take 100 mg by mouth every 8 hours as needed for Pain, Moderate or Pain, Severe. 90 Tablet 0 11/04/2021 Active Nystatin 429642 UNIT/GM External Powder (Nyamyc) apply to affected area twice a day 15 g 1 11/04/2021 Active Mirtazapine 7.5 MG Oral Tablet (Remeron) Take 1 Tablet by mouth at bedtime. 30 Tablet 1 11/10/2021 Active documented as of this encounter (statuses as of 12/14/2021) Active Problems Problem Noted Date Chronic hypoxemic [...] as of this encounter (statuses as of 12/14/2021) Resolved Problems Problem Noted Date Resolved Date [...] as of this encounter (statuses as of 12/14/2021) Immunizations Name Administration Dates Next Due H1N1 [...] encounter Progress Notes * JOHNY Humphrey - 12/14/2021 10:24 PM EST TINR documented in this encounter Plan of Treatment Upcoming Encounters Date Type Specialty Care Team Description 12/15/2021 Laboratory Laboratory Processing [place], [facility] [address] [place] [address] 12/15/2021 Telemedicine Psychiatry Hugo Alcantara MD [address] [place] [address] 12/16/2021 Office Visit Family Medicine Roger Alexandra MD [address] [place] [address] 12/18/2021 [facility] 58 [address] [place] [address] 07/24/2022 Office Visit Pulmonary Jesus Bonilla MD [address] [place] [address] Scheduled Orders Name Type Priority Associated Diagnoses Orde r Schedule PT INR Lab Routine Routine medical exam Expected: 12/15/2021, Expires: 3 Scheduled Procedures Name Priority Associated [...] Documents on File Type Date Recorded Patient Mold Maker Helper Expl 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 Advanced Directive 11/02/2011 12:00 AM Care Teams Corporate Auditor Relationship Specialty Start Date End Date Roger Alexandra MD [address] [place] [address] PCP - [facility] 12/29/19 documented as of this encounter
--- OUTSIDE RECORDS SUMMARY | 2023-07-25 04:47 | External Medical Summary | Summary of Care ---
Author Name Unknown Organization [facility] Address [place] [address] Care Team Providers Care Chainstitch Zipper Setter Name Role Phone Roger Alexandra MD Primary Care Provider [phone] [phone] Reason for Visit * Reason Comments Dosage Adjustment Via Phone (anticoag Cl inic) Encounter Details Date Type Department Care Team Description 12/11/2021 Anticoagulation Pharmacy Call Center [address] [facility] [place] [address] Telepharmacy, [facility] [address] buttermaker continuous churn current use 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* Allergies Active Allergy Reactions Severity Noted Date Comments Aspirin Unknown 12/12/2007 von Willebrand's disease Salicylates 03/01/2000 von Willebrand's disease documented as of this encounter (statuses as of 12/11/2021) Medications Medication Sig Dispensed Refills Start Date [...] 0 04/23/2021 Active Vitamin D3 1.25 MG (85583 UT) Oral CapsuleIndications:V itamin D deficiency Take [...] Severe. 90 Tablet 0 11/04/2021 Active Nystatin 146418 UNIT/GM External Powder (Nyamyc) apply to affected area twice a day 15 g 1 11/04/2021 Active Mirtazapine 7.5 MG Oral Tablet (Remeron) Take 1 Tablet by mouth at bedtime. 30 Tablet 1 11/10/2021 Active documented as of this encounter (statuses as of 12/11/2021) Active Problems Problem Noted Date Chronic hypoxemic [...] as of this encounter (statuses as of 12/11/2021) Resolved Problems Problem Noted Date Resolved Date [...] as of this encounter (statuses as of 12/11/2021) Immunizations Name Administration Dates Next Due H1N1 [...] Progress Notes * Kim Mercado RPh - 12/11/2021 3:07 PM EST [facility] [place] [phone] Pt discharged from [facility] to [facility]. Per bottoming machine operator at [facility] no d/c plans noted. LVM to to call back if any plans w/in next week. [facility] will follow up. Kim Mercado Rph, Pharm.D. Clinical Pharmacist Telepharmacy [phone] 12/11/2021,3:09 PM documented in this encounter Plan of Treatment Upcoming Encounters Date Type Specialty Care Team Description 12/15/2021 Telemedicine Psychiatry Hugo Alcantara MD [address] [place] [address] 12/18/20[address] [facility] [address] [place] [address] 07/24/2022 Office Visit Pulmonary Jesus Bonilla MD [address] [place] [address] Scheduled Procedures Name Priority Associated [...] Documents on File Type Date Recorded Patient Overhauler Expl 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 Advanced Directive 11/02/2011 12:00 AM Care Teams Chainstitch Zipper Setter Relationship Specialty Start Date End Date Roger Alexandra MD [address] [place] [address] PCP - General Family Medicine 12/29/19 documented as of this encounter
--- OUTSIDE RECORDS SUMMARY | 2023-07-25 04:47 | External Medical Summary | Summary of Care ---
Author Name Unknown Organization [place] [address] Care Team Providers Care Department Editor Name Role Phone Jeevan Mclean MD Primary Care Provider [phone] Reason for Visit * Reason Onset Date Comments Medication Refill 12/16/2021 Encounter Details Date Type Department Care Team Description 12/16/2021 Refill Family Practice [facility] [address] [place] [address] Jeevan Mclean MD 132 [facility] [place] [address] Chronic bilateral low back pain without sciatica Allergies Active Allergy Reactions Severity Noted Date Comments Aspirin Unknown 12/12/2007 von Willebrand's disease Salicylates 03/01/2000 von Willebrand's disease documented as of this encounter (statuses as of 12/17/2021) Medications Medication Sig Dispensed Refills Start Date [...] 0 04/23/2021 Active Vitamin D3 1.25 MG (02102 UT) Oral CapsuleIndications :Vitamin D deficiency Take [...] daily 30 Capsule 2 10/01/2021 Active Nystatin 042612 UNIT/GM External Powder (Nyamyc) apply to affected area twice a day 15 g 1 11/04/2021 Active Mirtazapine 7.5 MG Oral Tablet (Remeron) Take 1 Tablet by mouth at bedtime. 30 Tablet 1 11/10/2021 Active LORazepam 0.5 MG Oral Tablet (Ativan) [...] Pain, Severe. 90 Tablet 0 12/17/2021 Active traMADol HCl 100 MG Oral TabletIndications: Chronic bilateral low back pain without sciatica Take 100 mg by mouth every 8 hours as needed for Pain, Moderate or Pain, Severe. 90 Tablet 0 11/04/2021 2 Discontinue d(Refill) documented as of this encounter (statuses as of 12/17/2021) Active Problems Problem Noted Date Chronic hypoxemic [...] as of this encounter (statuses as of 12/17/2021) Resolved Problems Problem Noted Date Resolved Date [...] as of this encounter (statuses as of 12/17/2021) Immunizations Name Administration Dates Next Due H1N1 [...] Telephone Encounter - Jeevan Mclean MD - 12/17/2021 11:35 AM EST Signed Prescriptions: Disp Refills traMADol HCl 100 MG Oral Tablet 90 Tab*0 Sig: Take by mouth 100 mg every 8 hours as needed for Pain, Moderate or Pain, Severe. Authorizing Provider: JEEVAN MCLEAN * Telephone Encounter - Stuart Blair [facility] - 12/17/2021 10:50 AM EST Pending Prescriptions: Disp Refills traMADol HCl 100 MG Oral Tablet 90 Tab*0 Sig: Take by mouth 100 mg every 8 hours as needed for Pain, Moderate or Pain, Severe. * Telephone Encounter - Stuart Blair [facility] - 12/17/2021 10:49 AM EST I have reviewed the patients controlled substance dispensing history in the Prescription Drug Monitoring Program in compliance with the [facility] regulations before prescribing a controlled substance. PDMP checked on 12/17/2021. Pending Prescriptions: Disp Refills traMADol HCl 100 MG Oral Tablet 90 Tab*0 Sig: Take by mouth 100 mg every 8 hours as needed for Pain, Moderate or Pain, Severe. Last Visit: 11/20/2021 Next Visit: 12/19/2021 Date medication was last filled: 11/10/21 Date medication is due for refill: 12/09/21 Pharmacy: [facility] [address] Is this request for a controlled [...] Review. Please approve if appropriate. Thank You, Stuart Bustos [facility] Staff Pharmacist Pharmacy Refill Call Center 12/17/2021, 10:49 AM * Telephone Encounter - Effie Hope [facility]Ph[facility] - 12/16/2021 12:38 PM EST Pending Prescriptions: Disp Refills traMADol HCl 100 MG Oral Tablet 90 Tab*0 Sig: Take by mouth 100 mg every 8 hours as needed for Pain, Moderate or Pain, Severe. Last Visit: 11/20/2021 Next Visit: 12/19/2021 If no future appointments scheduled, and last appointment is greater than a year ago, please schedule patient for a follow-up appointment Last date the medication was ordered: 11/04/21 Pharmacy: [facility] [address] Is this request for a controlled [...] Labs: Lab Results Component Value Date/Time CREAT 0.8 12/10/2021 06:00 AM CREAT 0.77 11/21/2021 12:00 AM CREAT 0.7 10/17/2020 03:40 PM POTASSIUM 4.1 12/10/2021 06:00 AM POTASSIUM 2.8 (A) 11/21/2021 12:00 AM [...] Encounters Date Type Specialty Care Team Description 12/17/2021 Telemedicine Psychiatry Hugo Alcantara MD [address] [place] [address] 12/18/20[facility] [address] 12/19/2021 Office Visit Family Medicine Jeevan Mclean MD 132 [facility] [place] [address] 07/24/2022 Office Visit Pulmonary Jesus Bonilla MD [address] [place] [id number] Scheduled Procedures Name Priority Associated Diagnoses Date/Ti [...] Documents on File Type Date Recorded Patient Family Service Aide Expl 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 Advanced Directive 11/02/2011 12:00 AM Care Teams Department Editor Relationship Specialty Start Date End Date Jeevan Mclean MD 132 [facility] [place] [address] PCP - General Family Medicine 12/29/19 documented as of this encounter
--- OUTSIDE RECORDS SUMMARY | 2023-07-25 04:47 | External Medical Summary | Summary of Care ---
Author Name Unknown Organization [place] [address] Care Team Providers Care Solutions Delivery Consultant Name Role Phone Roger Alexandra MD Primary Care Provider [phone] Reason for Visit * - Authorized Specialty Diagnoses / Procedures Referred By Contac t Referred To Contact Referral ID Status Reason Start Date Expiration Date V isits Requested Visits Authorized [id number] Authorized 06/15/2021 06/14/2022 999 Encounter Details Date Type Department Care Team Description 12/15/2021 Telemedicine Psychiatry, [facility] [address] [place] [address] Hugo Alcantara MD [address] [place] [address] No Show for psych appt* Allergies Active Allergy Reactions Severity Noted Date Comments Aspirin Unknown 12/12/2007 von Willebrand's disease Salicylates 03/01/2000 von Willebrand's disease documented as of this encounter (statuses as of 12/15/2021) Medications Medication Sig Dispensed Refills Start Date [...] 0 04/23/2021 Active Vitamin D3 1.25 MG (09638 UT) Oral CapsuleIndications :Vitamin D deficiency Take [...] 10/01/2021 Active traMADol HCl 100 MG Oral TabletIndications: Chronic bilateral low back pain without sciatica Take 100 mg by mouth every 8 hours as needed for Pain, Moderate or Pain, Severe. 90 Tablet 0 11/04/2021 Active Nystatin 847845 UNIT/GM External Powder (Nyamyc) apply to affected [...] for Anxiety. 90 Tablet 1 12/15/2021 Active LORazepam 0.5 MG Oral Tablet (Ativan) Take 1 Tablet by mouth 3 times a day as needed for Anxiety. 90 Tablet 1 10/08/2021 2 Discontinue d(Refill) documented as of this encounter (statuses as of 12/15/2021) Active Problems Problem Noted Date Chronic hypoxemic [...] as of this encounter (statuses as of 12/15/2021) Resolved Problems Problem Noted Date Resolved Date [...] as of this encounter (statuses as of 12/15/2021) Immunizations Name Administration Dates Next Due H1N1 [...] Progress Notes * Hugo Alcantara MD - 12/15/2021 11:45 AM EST Pt presented at 1225pm for 1130am appt. Provided with number for scheduling to re-schedule. Pt requested refill of lorazepam. PDMP reviewed. Refill sent. documented in this encounter Miscellaneous Notes * Addendum Note - Hugo Alcantara MD - 12/15/2021 12:40 PM EST Addended by: HUGO ALCANTARA on: 12/15/2021 12:40 PM Modules accepted: Orders documented in this encounter Plan of Treatment Upcoming Encounters Date Type Specialty Care Team Description 12/15/2021 Laboratory Laboratory [facility] [address] [place] [address] 12/16/2021 Office Visit Family Medicine Roger Alexandra MD [address] [place] [address] 12/17/2021 Telemedicine Psychiatry [facility]antara MD [address] [facility] [address] 12/18/2021 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
--- OUTSIDE RECORDS SUMMARY | 2023-07-25 04:47 | External Medical Summary | Summary of Care ---
Author Name Unknown Organization [place] [address] Care Team Providers Care New Order Clerk Name Role Phone Roger Alexandra MD Primary Care Provider [phone] Reason for Visit * - Authorized Specialty Diagnoses / Procedures Referred By Contac t Referred To Contact Referral ID Status Reason Start Date Expiration Date V isits Requested Visits Authorized [id number] Authorized 06/15/2021 06/14/2022 999 Encounter Details Date Type Department Care Team Description 12/17/2021 Telemedicine Psychiatry, [address] [address] Hugo Alcantara MD [address] [place] [address] SIMA (generalized anxiety disorder)* Allergies [...] 0 04/23/2021 Active Vitamin D3 1.25 MG (80107 UT) Oral CapsuleIndications :Vitamin D deficiency Take [...] daily 30 Capsule 2 10/01/2021 Active Nystatin 286405 UNIT/GM External Powder (Nyamyc) apply to affected [...] before bedtime. 30 Tablet 1 12/17/2021 Active Mirtazapine 7.5 MG Oral Tablet (Remeron) Take 1 Tablet by mouth at bedtime. 30 Tablet 1 11/10/2021 2 Discontinue d(Refill) documented as of this [...] Progress Notes * Hugo Alcantara MD - 12/17/2021 12:01 PM EST After connecting through [employer], patient was verified with two unique identifiers. Patient (or authorized legal business office representative) was then informed that this was a Telemedicine visit and being conducted confidentially over secure lines. Methods to assure confidentiality were taken. Patient acknowledged consent and understanding of privacy and security of the Telemedicine visit. The patient agreed to participate. PSYCHOTHERAPY & MEDICATION MANAGEMENT RETURN VISIT NOTE Psychiatry, [facility] Gordon [address] [facility] [address] 08/18/2021 Kimberly Barillassher CHIEF COMPLAINT: medication management INTERVAL HISTORY: appt was conducted telephonically. she states she is struggling as was recently hospitalized. Reviewed dc summary. Was seen by psychiatry while admitted. dc'ed Remeron w/o clear indication. Buspar was increased to 15mg qAM and 10mg qPM. Reports someone told her she has dementia from strokes. She does not remember starting the Remeron after our last appt. She notes ongoing depressive and anxiety sx. She reports trouble sleeping. Ongoing SOB OBJECTIVE DATA: COLUMBIA-SUICIDE SEVERITY RATING SCALE Have [...] PAST PSYCHIATRIC, MEDICAL, FAMILY OR SOCIAL HX: recent hospitalization and subsequent rehab admission for COVID PNA CURRENT MEDS: Current Outpatient Medications Medication Sig [...] 120 mL 0 Vitamin D3 1.25 MG (84499 UT) Oral Capsule Take 1 Cap by [...] of 60mg daily 30 Capsule 2 Nystatin 936050 UNIT/GM External Powder (Nyamyc) apply to affected area twice a day 15 g 1 Mirtazapine 7.5 MG Oral Tablet (Remeron) [...] LABS: reviewed per EMR MENTAL STATUS EVALUATION: Personal Presentation: candid and cooperative. Behavior: cooperative Speech: normal, rate, tone and volume Mood: not good Affect: type - dysphoric; range - full range; lability - no Associations: intact Thought Process: goal directed Abstract Reasoning: not tested Thought Content: denies suicidal ideations, homicidal ideations, auditory hallucinations, visual hallucinations, delusions, impulsivity to act out or preoccupation with violence Orientation: alert Recent and remote memory as evidenced by recall of recent circumstances and remote life events: intact Language as evidenced by ability to repeat phrase and name object: intact Fund of knowledge as evidenced by vocabulary and current/historical events: intact Attention span/concentration as evidenced by: following conversation - intact Insight: fair Judgment: fair FORMULATION: Kimberly Kendall is h20enpm old female with presenting symptoms ofdepression, anxiety, [...] or Lexapro. Zoloft not helpful. Wellbutrin worsened anxietyand has been stopped. Stop Seroquel. presenting with acute worsening of sleep and ongoing anxiety sx. 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
--- OUTSIDE RECORDS SUMMARY | 2023-07-25 04:47 | External Medical Summary | Summary of Care ---
Author Name Unknown Organization [place] [address] Care Team Providers Care Sheep Farmer Name Role Phone Roger Alexandra MD Primary Care Provider [phone] Reason for Visit * Reason Comments eRx-Medication Refill Encounter Details Date Type Department Care Team Description 12/16/2021 Refill Family Practice [facility] [address] [place] [id number] Roger Alexandra MD 132 [facility] [place] [address] Chronic bilateral low back pain without sciatica [...] 0 04/23/2021 Active Vitamin D3 1.25 MG (98839 UT) Oral CapsuleIndications:V itamin D deficiency Take [...] daily 30 Capsule 2 10/01/2021 Active Nystatin 146393 UNIT/GM External Powder (Nyamyc) apply to affected [...] Notes * Telephone Encounter - Alvarez Mueller [facility] - 12/17/2021 1:15 PM EST Refused Prescriptions: Disp Refills traMADol HCl 100 MG Oral Tablet 90 Tab* Sig: TAKE 1 TABLET BY MOUTH EVERY 8 HOURS NEEDED FOR MODERATE TO SEVERE PAIN Refused By: ALVAREZ MUELLER Reason for Refusal: Duplicate Request * Telephone Encounter - DANIEL Posey - 12/17/2021 12:26 PM EST Pt calling to request Tramadol 100 MG. Informed pt that RX is available at their pharmacy. Pt verbalized understanding and stated they will check with their pharmacy regarding this medication. Thank you, Alcira Douglass Roll Shop Supervisor [facility] 12/17/2021,12:28 PM documented in this encounter Plan of Treatment Upcoming Encounters Date Type Specialty Care Team Description 12/18/2021 [facility] 58 60 [facility] [place] [address] 12/19/2021 Office Visit Family Medicine Roger Alexandra MD [address] [place] [address] 07/24/2022 Office Visit Jesus Campos MD [address] [place] [address] Scheduled Procedures Name Priority Associated Diagnoses Date/Ti [...] Documents on File Type Date Recorded 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
--- OUTSIDE RECORDS SUMMARY | 2023-07-25 04:47 | External Medical Summary | Summary of Care ---
Author Name Unknown Organization [place] [address] Care Team Providers Care Edger Machine Operator Name Role Phone Roger Alexandra MD Primary Care Provider [phone] Reason for Visit * - Authorized Specialty Diagnoses / Procedures Referred By Contac t Referred To Contact Referral ID Status Reason Start Date Expiration Date V isits Requested Visits Authorized [id number] Authorized 06/15/2021 06/14/2022 999 Encounter Details Date Type Department Care Team Description 12/15/2021 Telemedicine Psychiatry, [facility] [address] [place] [address] Hugo Alcantara MD [address] [place] [address] No Show for psych appt* [...] 0 04/23/2021 Active Vitamin D3 1.25 MG (25922 UT) Oral CapsuleIndications:V itamin D deficiency Take [...] Severe. 90 Tablet 0 11/04/2021 Active Nystatin 813428 UNIT/GM External Powder (Nyamyc) apply to affected [...] Alcantara MD - 12/15/2021 11:45 AM EST Patient failed to keep appointment. 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
--- OUTSIDE RECORDS SUMMARY | 2023-07-25 04:47 | External Medical Summary | Summary of Care ---
Author Name Unknown Organization [place] [address] Care Team Providers Care Building Materials Sales Attendant Name Role Phone Roger Alexandra MD Primary Care Provider [phone] Reason for Visit * Reason Onset Date Comments Appointment 12/11/2021 Encounter Details Date Type Department Care Team Description 12/11/2021 Telephone Psychiatry, [facility] [address] [place] [address] Hugo Alcantara MD [address] [facility] [place], [place] [id number] Appointment Allergies Active Allergy Reactions Severity Noted [...] 0 04/23/2021 Active Vitamin D3 1.25 MG (89344 UT) Oral CapsuleIndications:V itamin D deficiency Take [...] Severe. 90 Tablet 0 11/04/2021 Active Nystatin 819434 UNIT/GM External Powder (Nyamyc) apply to affected [...] 02/04/2006 12/21/2008 Atrial septal aneurysm 02/04/2006 9 comfort filler current use 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 0 06/01/2005 [...] Miscellaneous Notes * Telephone Encounter - RUFINA Holder - 12/11/2021 10:29 AM EST Called patient to verify date/time/location, demographics and insurance for upcoming appointment. If call is returned and patient needs to change demographics or insurance please transfer to [phone]. If patient has scheduling concerns please transfer to [phone]. documented in this encounter Plan of Treatment Upcoming Encounters Date Type Specialty Care Team Description 12/15/2021 Telemedicine Psychiatry Hugo Alcantara MD [address] [facility] 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
--- OUTSIDE RECORDS SUMMARY | 2023-07-25 04:47 | External Medical Summary ---
Author Name Unknown Address Unknown Organization [facility] [address] [place] [address] Laboratory Report Ordering Provider Test Date Status GRAYSON BIGGS 12/14/2021 05:50:00 Final Observation Date Value Abnormality Reference (Units ) Status PT 12/14/2021 05:50:00 29.3 Above high normal 11 .5-14.6 (seconds) Final INR 12/14/2021 05:50:00 2.79 Above high normal 0. 84-1.14 Final [facility] [place] [address]
--- OUTSIDE RECORDS SUMMARY | 2023-07-25 04:47 | External Medical Summary | Summary of Care ---
Author Name Unknown Organization [place] [address] Care Team Providers Care Catering Truck Operator Name Role Phone Roger Alexandra MD Primary Care Provider [phone] [phone] Encounter Details Date Type Department Care Team Description 12/11/2021 Orders Only Lab Mobile [facility]bot[facility] [address] [place], [place] [phone] Benedicto Fowler MD [address] [place], [place] [phone] Routine medical exam* Allergies Active Allergy Reactions [...] 0 04/23/2021 Active Vitamin D3 1.25 MG (02355 UT) Oral CapsuleIndications:V itamin D deficiency Take [...] Severe. 90 Tablet 0 11/04/2021 Active Nystatin 864246 UNIT/GM External Powder (Nyamyc) apply to affected [...] Encounters Date Type Specialty Care Team Description 12/12/2021 Laboratory Laboratory Processing [place], 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
--- OUTSIDE RECORDS SUMMARY | 2023-07-25 04:47 | External Medical Summary | Summary of Care ---
Author Name Unknown Organization [place] [address] Care Team Providers Care Parking Ramp Attendant Name Role Phone Roger Alexandra MD Primary Care Provider [phone] [phone] Encounter Details Date Type Department Care Team Description 12/12/2021 Scan Encounter [facility] 132 [facility] [place] [address] Roger Alexandra MD 132 [facility] [place] [address] <No scans attached> Allergies Active Allergy Reactions Severity Noted Date Comments Aspirin Unknown 12/12/2007 von Willebrand's disease Salicylates 03/01/2000 von Willebrand's disease documented as of this encounter (statuses as of 12/16/2021) Medications Medication Sig Dispensed Refills Start Date [...] 0 04/23/2021 Active Vitamin D3 1.25 MG (14616 UT) Oral CapsuleIndications:V itamin D deficiency Take [...] Severe. 90 Tablet 0 11/04/2021 Active Nystatin 734541 UNIT/GM External Powder (Nyamyc) apply to affected area twice a day 15 g 1 11/04/2021 Active Mirtazapine 7.5 MG Oral Tablet (Remeron) Take 1 Tablet by mouth at bedtime. 30 Tablet 1 11/10/2021 Active documented as of this encounter (statuses as of 12/16/2021) Active Problems Problem Noted Date Chronic hypoxemic [...] as of this encounter (statuses as of 12/16/2021) Resolved Problems Problem Noted Date Resolved Date [...] as of this encounter (statuses as of 12/16/2021) Immunizations Name Administration Dates Next Due H1N1 [...] Family Medicine Roger Alexandra MD [address] [facility] [place] [address] 12/17/2021 Telemedicine Psychiatry Hugo Alcantara MD [address] [place] [address] 12/18/2021 [facility] [address] 60 [place] [address] 07/24/2022 Office Visit Pulmonary Jesus Bonilla MD [address] [facility] [place] [address] Scheduled Procedures Name Priority Associated Diagnoses [...] Documents on File Type Date Recorded Patient Shaper Operator Expl 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 Advanced Directive 11/02/2011 12:00 AM Care Teams Parking Ramp Attendant Relationship Specialty Start Date End Date Roger Alexandra MD [address] [place] [address] [place] [address] PCP - General Family Medicine 12/29/19 documented as of this encounter
--- OUTSIDE RECORDS SUMMARY | 2023-07-25 04:47 | External Medical Summary | Summary of Care ---
Author Name Unknown Organization [facility] [place] [address] Care Team Providers Care Reel Hooker Name Role Phone Roger Alexandra MD Primary Care Provider [phone] [phone] Encounter Details Date Type Department Care Team Description 12/14/2021 Result Scan Unspecified Department <No scans attached> [...] 0 04/23/2021 Active Vitamin D3 1.25 MG (59823 UT) Oral CapsuleIndications:V itamin D deficiency Take [...] Severe. 90 Tablet 0 11/04/2021 Active Nystatin 081594 UNIT/GM External Powder (Nyamyc) apply to affected [...] Psychiatry Hugo Alcantara MD [address] [place] [address] 12/18/2021 [facility] [address] 60 [facility] [place] [address] 12/19/2021 Office Visit Family Medicine [facility] [address] 07/24/2022 Office Visit Pulmonary [facility] Bonilla MD [address] [facility] [address] Scheduled Procedures Name Priority Associated Diagnoses [...] Date/Time Associated Diagnosis Comments OUTSIDE LAB RESULTS 12/14/2021 documented in this encounter Results * OUTSIDE LAB RESULTS (12/14/2021) Specimen Narrative documented in this encounter Advance Directives Documents on File Type Date Recorded Patient Veneer Glue Jointer Feedback Expl 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 Advanced Directive 11/02/2011 12:00 AM Care Teams Reel Hooker Relationship Specialty Start Date End Date Roger Alexandra MD 132 [facility] [place] [address] PCP - General Family Medicine 12/29/19 documented as of this encounter
--- OUTSIDE RECORDS SUMMARY | 2023-07-25 04:47 | External Medical Summary ---
Author Name Unknown Address Unknown Organization [id number][facility] [place] [address] Laboratory Report Ordering Provider Test Date Status KALYANGRAYSON 12/12/2021 06:00:00 Final Observation Date Value Abnormality Reference (Units ) Status PT 12/12/2021 06:00:00 23.4 Above high normal 11 .5-14.6 (seconds) Final INR 12/12/2021 06:00:00 2.08 Above high normal 0. 84-1.14 Final Performing Location [facility] [place] [address]
--- OUTSIDE RECORDS SUMMARY | 2023-07-25 04:48 | External Medical Summary ---
Author Name Unknown Address Unknown Organization K09:[facility] [place] [address] Laboratory Report Ordering Provider Test Date Status PHONG BOND 12/04/2021 18:35:00 Final Observation Date Value Abnormality Reference (Units ) Status RBC, Urine 12/04/2021 18:35:00 0-2 0-2 (/HPF) Final WBC, Urine 12/04/2021 18:35:00 0-2 0-2 (/HPF) Final Bacteria [#/area] in Urine sediment by Microscopy high power field 12/04/2021 18:35:00 0-25 0-25 (/HPF) Final Performing Location [facility] [place] [address]
--- OUTSIDE RECORDS SUMMARY | 2023-07-25 04:48 | External Medical Summary ---
Author Name Unknown Address Unknown Organization K09:[facility] [place] [address] Laboratory Report Ordering Provider Test Date Status KALYANGRAYSON 12/05/2021 06:33:00 Final Observation Date Value Abnormality Reference (Units ) Status PT 12/05/2021 06:33:00 18.5 Above high normal 11 .5-14.6 (seconds) Final INR 12/05/2021 06:33:00 1.53 Above high normal 0. 84-1.14 Final Performing Location [facility] [place] [address]
--- OUTSIDE RECORDS SUMMARY | 2023-07-25 04:48 | External Medical Summary ---
Author Name Unknown Address Unknown Organization K09:[facility] [place] [address] Laboratory Report Ordering Provider Test Date Status GRAYSON BIGGS 12/04/2021 05:55:00 Final Observation Date Value Abnormality Reference (Units ) Status BUN 12/04/2021 05:55:00 21 Above high normal 6-20 (mg/dL) Final Creatinine 12/04/2021 05:55:00 0.7 0.5-1.0 (mg/dL) Final Glomerular filtration rate/1.73 sq M.predicted [Volume Rate/Area] in Serum, Plasma or Blood by Creatinine-based formula (CKD-EPI) 12/04/2021 05:55:00 >90 >=60 (mL/min) Final Performing Location [facility] [place] [address]
--- OUTSIDE RECORDS SUMMARY | 2023-07-25 04:48 | External Medical Summary ---
Author Name Unknown Address Unknown Organization [facility] [address] [place] [address] Laboratory Report Ordering Provider Test Date Status VARUNPHONG 12/07/2021 05:40:00 Final Observation Date Value Abnormality Reference (Units ) Status PT 12/07/2021 05:40:00 23.7 Above high normal 11 .5-14.6 (seconds) Final INR 12/07/2021 05:40:00 2.11 Above high normal 0. 84-1.14 Final Performing Location [facility] [place] [address] [place] [address]
--- OUTSIDE RECORDS SUMMARY | 2023-07-25 04:48 | External Medical Summary ---
Author Name Unknown Address Unknown Organization K09:[facility] [place] [address] Laboratory Report Ordering Provider Test Date Status KALYANGRAYSON 12/09/2021 05:30:00 Final Observation Date Value Abnormality Reference (Units ) Status PT 12/09/2021 05:30:00 25.7 Above high normal 11 .5-14.6 (seconds) Final INR 12/09/2021 05:30:00 2.35 Above high normal 0. 84-1.14 Final Performing Location [facility] [place] [address]
--- OUTSIDE RECORDS SUMMARY | 2023-07-25 04:48 | External Medical Summary | Summary of Care ---
Author Name Unknown Organization [place] [address] Care Team Providers Care A P Mechanic Name Role Phone Roger Alexandra MD Primary Care Provider [phone] [phone] Encounter Details Date Type Department Care Team Description 12/04/2021 Orders Only Lab Mobile Phlebotomy [facility] [address] [place], [place] [phone] Benedicto Fowler MD [address] [place], [place] [phone] Routine medical exam* Allergies Active Allergy Reactions Severity Noted Date Comments Aspirin Unknown 12/12/2007 von Willebrand's disease Salicylates 03/01/2000 von Willebrand's disease documented as of this encounter (statuses as of 12/04/2021) Medications Medication Sig Dispensed Refills Start Date [...] 0 04/23/2021 Active Vitamin D3 1.25 MG (72435 UT) Oral CapsuleIndications:V itamin D deficiency Take [...] Severe. 90 Tablet 0 11/04/2021 Active Nystatin 479853 UNIT/GM External Powder (Nyamyc) apply to affected area twice a day 15 g 1 11/04/2021 Active Mirtazapine 7.5 MG Oral Tablet (Remeron) Take 1 Tablet by mouth at bedtime. 30 Tablet 1 11/10/2021 Active documented as of this encounter (statuses as of 12/04/2021) Active Problems Problem Noted Date Chronic hypoxemic [...] as of this encounter (statuses as of 12/04/2021) Resolved Problems Problem Noted Date Resolved Date [...] as of this encounter (statuses as of 12/04/2021) Immunizations Name Administration Dates Next Due H1N1 [...] Encounters Date Type Specialty Care Team Description 12/05/2021 Laboratory [facility] [place] [address] [place] [address] 12/11/2021 [facility] [address] [place] [address] 12/15/2021 Telemedicine Psychiatry Hugo Alcantara MD [address] [place] [address] 07/24/2022 Office Visit Pulmonary Jesus Bonilla MD [address] [place] [facility] [place] [address] Scheduled Orders Name Type Priority Associated Diagnoses Orde r Schedule TSH Lab Routine Routine medical exam Expected: 12/05/2021, Expires: 3 PT INR Lab Routine Routine medical exam Expected: 12/05/2021, Expires: 3 Scheduled Procedures Name Priority Associated [...] SCREEN EVERY 3 YRS-AGE 45 AND ABOVE 12/04/2024 12/04/2021, 11/21/2021, 06/02/2021, Additional history exists Pneumococcal Vaccine: Pediatrics (0 [...] Documents on File Type Date Recorded Patient Flame Gouger Expl 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 Advanced Directive 11/02/2011 12:00 AM Care Teams A P Mechanic Relationship Specialty Start Date End Date Roger Alexandra MD 132 [facility] [place] [address] PCP - General Family Medicine 12/29/19 documented as of this encounter
--- OUTSIDE RECORDS SUMMARY | 2023-07-25 04:48 | External Medical Summary | Summary of Care ---
Author Name Unknown Organization [place] [address] Care Team Providers Care Psychiatric Nursing Assistant Name Role Phone Roger Alexandra MD Primary Care Provider [phone] [phone] Encounter Details Date Type Department Care Team Description 12/01/2021 Scan Encounter [facility] 132 [facility] [place] [address] Roger Alexandra MD 132 [facility] [place] [address] <No scans attached> Allergies Active Allergy Reactions Severity Noted Date Comments Aspirin Unknown 12/12/2007 von Willebrand's disease Salicylates 03/01/2000 von Willebrand's disease documented as of this encounter (statuses as of 12/03/2021) Medications Medication Sig Dispensed Refills Start Date [...] 0 04/23/2021 Active Vitamin D3 1.25 MG (79157 UT) Oral CapsuleIndications:V itamin D deficiency Take [...] Severe. 90 Tablet 0 11/04/2021 Active Nystatin 099028 UNIT/GM External Powder (Nyamyc) apply to affected area twice a day 15 g 1 11/04/2021 Active Mirtazapine 7.5 MG Oral Tablet (Remeron) Take 1 Tablet by mouth at bedtime. 30 Tablet 1 11/10/2021 Active documented as of this encounter (statuses as of 12/03/2021) Active Problems Problem Noted Date Chronic hypoxemic [...] as of this encounter (statuses as of 12/03/2021) Resolved Problems Problem Noted Date Resolved Date [...] as of this encounter (statuses as of 12/03/2021) Immunizations Name Administration Dates Next Due H1N1 [...] Telemedicine Psychiatry Hugo Alcantara MD [address] [facility] [place] [address] 07/24/2022 Office Visit Pulmonary Jesus Bonilla MD [address] [place] [address] Scheduled Procedures Name Priority [...] SCREEN EVERY 3 YRS-AGE 45 AND ABOVE 11/21/2024 11/21/2021, 06/02/2021, 05/26/2021, Additional history exists Pneumococcal Vaccine: Pediatrics (0 to 5 Years) and At-Risk Patients (6 to 64 Years) (2 of 2 - PPSV23) 2025 03/20/2009 COLONOSCOPY-EVERY 5 YRS AGES 18-100 11/12/2025 11/12/2020, 05/22/2013, 08/21/2011, Additional history exists Influenza Vaccine (FLU shot) Completed , 09/15/2020, 10/03/2017, Additional history exists GARDASIL-HPV IMMUNIZATION SERIES Aged Out No longer eligible based on patient's age to complete this topic MENINGOCOCCAL (MENACTRA/MENVEO) Aged Out No longer eligible based on patient's age to complete this topic documented as of this encounter Implants Not on filedocumented as of this encounter Advance Directives Documents on File Type Date Recorded Patient Editor Trade Journal Expl 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 Advanced Directive 11/02/2011 12:00 AM Care Teams Psychiatric Nursing Assistant Relationship Specialty Start Date End Date Roger Alexandra MD 132 [facility] [place] [address] PCP - General Family Medicine 12/29/19 documented as of this encounter
--- OUTSIDE RECORDS SUMMARY | 2023-07-25 04:48 | External Medical Summary ---
Author Name Unknown Address Unknown Organization K09:[facility] [place] [address] Laboratory Report Ordering Provider Test Date Status GRAYSON BIGGS 12/10/2021 06:00:00 Final Observation Date Value Abnormality Reference (Units ) Status WBC, Total 12/10/2021 06:00:00 4.74 4.00-10.8 0 (K/uL) Final RBC 12/10/2021 06:00:00 3.21 Below low normal 3.8 5-5.15 (M/uL) Final Hemoglobin 12/10/2021 06:00:00 9.5 Below low normal 12 .0-15.3 (g/dL) Final HCT 12/10/2021 06:00:00 30.4 Below low normal 36. 0-45.2 (%) Final MCV 12/10/2021 06:00:00 94.7 81.5-97.5 (fL) Final MCH 12/10/2021 06:00:00 29.6 27.0-34.0 (pg) Final MCHC 12/10/2021 06:00:00 31.3 Below low normal 32. 0-36.0 (g/dL) Final RDW 12/10/2021 06:00:00 18.1 Above high normal 11 .5-15.5 (%) Final Platelets 12/10/2021 06:00:00 293 140-400 (K /uL) Final MPV 12/10/2021 06:00:00 8.8 6.6-11.1 ( fL) Final Performing Location [facility] [place] [address]
--- OUTSIDE RECORDS SUMMARY | 2023-07-25 04:48 | External Medical Summary | Summary of Care ---
Author Name Unknown Organization [place] [address] Care Team Providers Care Court Assistant Name Role Phone Roger Alexandra MD Primary Care Provider [phone] Encounter Details Date Type Department Care Team Description 12/03/2021 Scan Encounter [facility] 132 [facility] [place] [address] Roger Alexandra MD 132 [facility] [place] [address] <No scans attached> Allergies Active Allergy Reactions [...] 0 04/23/2021 Active Vitamin D3 1.25 MG (13619 UT) Oral CapsuleIndications:V itamin D deficiency Take [...] Severe. 90 Tablet 0 11/04/2021 Active Nystatin 472603 UNIT/GM External Powder (Nyamyc) apply to affected [...] Encounters Date Type Specialty Care Team Description 12/11/2021 [facility] [address] 60 [facility] [place] [address] 12/15/2021 Telemedicine Psychiatry Hugo [facility]cantara MD [address] [facility] [address] 07/24/2022 Office Visit Pulmonary Jesus Bonilla MD [address] [facility] [place] [address] Scheduled Procedures Name Priority Associated Diagnoses Date/Ti [...] Documents on File Type Date Recorded 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
--- OUTSIDE RECORDS SUMMARY | 2023-07-25 04:48 | External Medical Summary | Summary of Care ---
Author Name Unknown Organization [place] [address] Care Team Providers Care Electric Relay Tester Name Role Phone Roger Alexandra MD Primary Care Provider [phone] Encounter Details Date Type Department Care Team Description 12/03/2021 Orders Only Lab Mobile Phlebotomy [facility] [address] [place], [place] [phone] Benedicto Fowler MD [address] [place], [place] [phone] Routine medical exam* Allergies Active Allergy Reactions [...] 0 04/23/2021 Active Vitamin D3 1.25 MG (20827 UT) Oral CapsuleIndications:V itamin D deficiency Take [...] Severe. 90 Tablet 0 11/04/2021 Active Nystatin 837625 UNIT/GM External Powder (Nyamyc) apply to affected [...] Encounters Date Type Specialty Care Team Description 12/04/2021 Laboratory Laboratory Processing [place] [place] [address] [place] [address] 12/11/2021 [facility] [address] [place] [address] 12/15/2021 Telemedicine Psychiatry Hugo Alcantara MD [address] [place] [address] 07/24/2022 Office Visit Pulmonary Jesus Bonilla MD [address] [facility] [place] [address] Scheduled Orders Name Type Priority Associated Diagnoses Orde r Schedule CBC Lab Routine Routine medical exam Expected: 12/04/2021, Expires: 12/03/2022 BASIC METABOLIC PANEL Lab Routine Routine medical exam Expected: 12/04/2021, Expires: 12/03/2022 Scheduled Procedures Name Priority Associated Diagnoses Date/Ti [...] on File Type Date Recorded 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
--- OUTSIDE RECORDS SUMMARY | 2023-07-25 04:48 | External Medical Summary | Summary of Care ---
Author Name Unknown Organization [place] [address] Care Team Providers Care Newsagent Name Role Phone Roger Alexandra MD Primary Care Provider [phone] [phone] Encounter Details Date Type Department Care Team Description 12/09/2021 Orders Only Lab Mobile Phlebotomy [facility] [address] [place], [place] [phone] Benedicto Fowler MD [address] [place], [place] [phone] Routine medical exam* Allergies Active Allergy Reactions Severity Noted Date Comments Aspirin Unknown 12/12/2007 von Willebrand's disease Salicylates 03/01/2000 von Willebrand's disease documented as of this encounter (statuses as of 12/09/2021) Medications Medication Sig Dispensed Refills Start Date [...] 0 04/23/2021 Active Vitamin D3 1.25 MG (74654 UT) Oral CapsuleIndications:V itamin D deficiency Take [...] Severe. 90 Tablet 0 11/04/2021 Active Nystatin 544683 UNIT/GM External Powder (Nyamyc) apply to affected area twice a day 15 g 1 11/04/2021 Active Mirtazapine 7.5 MG Oral Tablet (Remeron) Take 1 Tablet by mouth at bedtime. 30 Tablet 1 11/10/2021 Active documented as of this encounter (statuses as of 12/09/2021) Active Problems Problem Noted Date Chronic hypoxemic [...] as of this encounter (statuses as of 12/09/2021) Resolved Problems Problem Noted Date Resolved Date [...] as of this encounter (statuses as of 12/09/2021) Immunizations Name Administration Dates Next Due H1N1 [...] Encounters Date Type Specialty Care Team Description 12/10/2021 Laboratory Laboratory Processing [place], [facility] [place] [address] [place] [address] 12/11/2021 [facility] [address] [place] [address] 12/15/2021 Telemedicine Psychiatry Hugo Alcantara MD [address] [place] [address] 07/24/2022 Office Visit Pulmonary Jesus Bonilla MD [address] [place] [facility] [place] [address] Scheduled Orders Name Type Priority Associated Diagnoses Orde r Schedule BASIC METABOLIC PANEL Lab Routine Routine medical exam Expected: 12/09/2021, Expires: 12/09/2022 CBC Lab Routine Routine medical exam Expected: 12/09/2021, Expires: 12/09/2022 Scheduled Procedures Name Priority Associated Diagnoses Date/Ti [...] Documents on File Type Date Recorded Patient Certified [place]ell Administrator Expl 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 Advanced Directive 11/02/2011 12:00 AM Care Teams Newsagent Relationship Specialty Start Date End Date Roger Alexandra MD 132 [facility] [place] [address] PCP - General Family Medicine 12/29/19 documented as of this encounter
--- OUTSIDE RECORDS SUMMARY | 2023-07-25 04:48 | External Medical Summary ---
Author Name Unknown Address Unknown Organization K09:[facility] [place] [address] Laboratory Report Ordering Provider Test Date Status PHONG BOND 12/04/2021 18:35:00 Final Observation Date Value Abnormality Reference (Units) Status Color of Urine by Auto 12/04/2021 18:35:00 Pony Abnormal Light Yellow, Yellow, Dark Yellow Final Clarity, Urine 12/04/2021 18:35:00 Slightly Cloudy Abnormal Clear Final Glucose [Mass/volume] in Urine by Automated test strip 12/04/2021 18:35:00 Color of urine interferes with this test Abnormal Negative (mg/dL) Final Bilirubin.total [Presence] in Urine by Automated test strip 12/04/2021 18:35:00 Negative Negative Final Ketones [Mass/volume] in Urine by Automated test strip 12/04/2021 18:35:00 Color of urine interferes with this test Abnormal Negative (mg/dL) Final Specific gravity, Urine 12/04/2021 18:35:00 1.020 1.003-1.030 Final Hemoglobin [Presence] in Urine by Automated test strip 12/04/2021 18:35:00 Negative Negative Final pH, Urine 12/04/2021 18:35:00 5.5 5.0-7.5 (Units) Final Protein [Mass/volume] in Urine by Automated test strip 12/04/2021 18:35:00 Negative Negative (mg/dL) Final Urobilinogen [Mass/volume] in Urine by Automated test strip 12/04/2021 18:35:00 Color of urine interferes with this test Abnormal 0.2, 1.0 (mg/dL) Final Nitrite [Presence] in Urine by Automated test strip 12/04/2021 18:35:00 Color of urine interferes with this test Abnormal Negative Final Leukocyte esterase [Presence] in Urine by Automated test strip 12/04/2021 18:35:00 Negative Negative Final Performing Location [facility] [place] [address]
--- OUTSIDE RECORDS SUMMARY | 2023-07-25 04:48 | External Medical Summary ---
Author Name Unknown Address Unknown Organization K09:[facility] [place] [address] Laboratory Report Ordering Provider Test Date Status GRAYSON BIGGS 12/04/2021 05:55:00 Final Observation Date Value Abnormality Reference (Units ) Status WBC, Total 12/04/2021 05:55:00 12.81 Above high normal 4 .00-10.80 (K/uL) Final RBC 12/04/2021 05:55:00 3.59 Below low normal 3.8 5-5.15 (M/uL) Final Hemoglobin 12/04/2021 05:55:00 10.5 Below low normal 12 .0-15.3 (g/dL) Final HCT 12/04/2021 05:55:00 33.3 Below low normal 36. 0-45.2 (%) Final MCV 12/04/2021 05:55:00 92.8 81.5-97.5 (fL) Final MCH 12/04/2021 05:55:00 29.2 27.0-34.0 (pg) Final MCHC 12/04/2021 05:55:00 31.5 Below low normal 32. 0-36.0 (g/dL) Final RDW 12/04/2021 05:55:00 18.1 Above high normal 11 .5-15.5 (%) Final Platelets 12/04/2021 05:55:00 350 140-400 (K /uL) Final MPV 12/04/2021 05:55:00 8.8 6.6-11.1 ( fL) Final Performing Location [facility] [place] [address]
--- OUTSIDE RECORDS SUMMARY | 2023-07-25 04:48 | External Medical Summary ---
Author Name Unknown Address Unknown Organization [facility] [address] [place] [address] Laboratory Report Ordering Provider Test Date Status VARUNIZZYKEITH 12/06/2021 06:09:00 Final Observation Date Value Abnormality Reference (Units ) Status PT 12/06/2021 06:09:00 21.3 Above high normal 11 .5-14.6 (seconds) Final INR 12/06/2021 06:09:00 1.84 Above high normal 0. 84-1.14 Final Performing Location [facility] [place] [address] [place] [address]
--- OUTSIDE RECORDS SUMMARY | 2023-07-25 04:48 | External Medical Summary ---
Author Name Unknown Address Unknown Organization K09:[facility] [place] [address] Laboratory Report Ordering Provider Test Date Status GRAYSON BIGGS 12/10/2021 06:00:00 Final Observation Date Value Abnormality Reference (Units ) Status BUN 12/10/2021 06:00:00 17 6-20 (mg/dL) Final Creatinine 12/10/2021 06:00:00 0.8 0.5-1.0 (mg/dL) Final Glomerular filtration rate/1.73 sq M.predicted [Volume Rate/Area] in Serum, Plasma or Blood by Creatinine-based formula (CKD-EPI) 12/10/2021 06:00:00 >90 >=60 (mL/min) Final Performing Location [facility] [place] [address]
--- OUTSIDE RECORDS SUMMARY | 2023-07-25 04:48 | External Medical Summary | Summary of Care ---
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 90 Tablet 0 11/04/2021 Active Nystatin 739338 UNIT/GM External Powder (Nyamyc) apply to affected area twice a day 15 g 1 11/04/2021 Active Mirtazapine 7.5 MG Oral Tablet (Remeron) Take 1 Tablet by mouth at bedtime. 30 Tablet 1 11/10/2021 Active documented as of this encounter (statuses as of 12/02/2021) Active Problems Problem Noted Date Chronic hypoxemic [...] as of this encounter (statuses as of 12/02/2021) Resolved Problems Problem Noted Date Resolved Date [...] as of this encounter (statuses as of 12/02/2021) Immunizations Name Administration Dates Next Due H1N1 [...] Progress Notes * Kim Mercado RPh - 12/02/2021 2:07 PM EST Pt remains admitted to [facility]. Per chart review CM assisting for DC planning, pt stable for discharge. ACC will follow up tomorrow Kim Mercado Rph, Pharm.D. Clinical Pharmacist Telepharmacy [phone] 12/02/2021,2:09 PM documented in this encounter Plan of Treatment Upcoming Encounters Date Type Specialty Care Team Description 12/03/2021 Anticoagulation Pharmacy Telepharmacy, [facility] [address] [place] [address] 12/15/2021 Telemedicine Psychiatry Hugo Alcantara MD [address] [place] [address] 07/24/2022 Office Visit Pulmonary Jesus Bonilla MD [address] [place] [address] Scheduled Procedures Name Priority Associated [...] as of this encounter Visit Diagnoses Diagnosis [facility] current use 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- Primary documented [...] Advanced Directive 11/02/2011 12:00 AM Care Teams Shipping Room Supervisor Relationship Specialty Start Date End Date Roger Alexandra MD 132 [facility] [place] [address] PCP - General Family Medicine 12/29/19 documented as of this encounter
--- OUTSIDE RECORDS SUMMARY | 2023-07-25 04:48 | External Medical Summary | Summary of Care ---
Author Name Unknown Organization [facility] Address [place] [address] Care Team Providers Care Hydraulic Billet Maker Name Role Phone Roger Alexandra MD Primary Care Provider [phone] [phone] Reason for Visit * Reason Comments Dosage Adjustment Via Phone (anticoag Cl inic) Encounter Details Date Type Department Care Team Description 12/03/2021 Anticoagulation Pharmacy Call Center 58-60 [facility] [place] [address] Telepharmacy, [facility] 58 60 [facility] [place] [address] intermediate manager current use 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* Allergies Active [...] 0 04/23/2021 Active Vitamin D3 1.25 MG (63150 UT) Oral CapsuleIndications:V itamin D deficiency Take [...] Severe. 90 Tablet 0 11/04/2021 Active Nystatin 738823 UNIT/GM External Powder (Nyamyc) apply to affected [...] Progress Notes * Kim Mercado RPh - 12/03/2021 3:09 PM EST [facility] [phone] Pt discharged from [facility] to [facility]. Spoke to Layla at [facility] today. Confirmed pt has been admitted and Warfarin will be managed in house. ACC will follow up at discharge. Kim Mercado Rph, Pharm.D. Clinical Pharmacist Telepharmacy [phone] 12/03/2021,3:10 PM documented in this encounter Plan of Treatment Upcoming Encounters Date Type Specialty Care Team Description 12/11/2021 [facility] 58 60 [place] [address] 12/15/2021 Telemedicine Psychiatry Hugo Alcantara MD [address] [place] [address] 07/24/2022 Office Visit Pulmonary Jesus Bonilla MD [address] [place] [facility] [place] [address] Scheduled Procedures Name Priority Associated Diagnoses [...] of this encounter Visit Diagnoses Diagnosis intermediate manager current use 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- Primary documented in this encounter Advance Directives Documents on File Type Date Recorded Patient Arnp Expl 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 Advanced Directive 11/02/2011 12:00 AM Care Teams Hydraulic Billet Maker Relationship Specialty Start Date End Date Roger Alexandra MD [address] [facility] [place] [id number] PCP - General Family Medicine 12/29/19 documented as of this encounter
--- OUTSIDE RECORDS SUMMARY | 2023-07-25 04:48 | External Medical Summary | Summary of Care ---
Author Name Unknown Organization [place] [address] Care Team Providers Care Spring Assembler Name Role Phone Roger Alexandra MD Primary Care Provider [phone] [phone] Encounter Details Date Type Department Care Team Description 12/08/2021 Orders Only Lab Mobile Phlebotomy [facility] [address] [place], [place] [id number] Benedicto Fowler MD [address] [place], [place] [id number] Routine medical exam* Allergies Active Allergy Reactions Severity Noted Date Comments Aspirin Unknown 12/12/2007 von Willebrand's disease Salicylates 03/01/2000 von Willebrand's disease documented as of this encounter (statuses as of 12/08/2021) Medications Medication Sig Dispensed Refills Start Date [...] 0 04/23/2021 Active Vitamin D3 1.25 MG (40103 UT) Oral CapsuleIndications:V itamin D deficiency Take [...] Severe. 90 Tablet 0 11/04/2021 Active Nystatin 459298 UNIT/GM External Powder (Nyamyc) apply to affected area twice a day 15 g 1 11/04/2021 Active Mirtazapine 7.5 MG Oral Tablet (Remeron) Take 1 Tablet by mouth at bedtime. 30 Tablet 1 11/10/2021 Active documented as of this encounter (statuses as of 12/08/2021) Active Problems Problem Noted Date Chronic hypoxemic [...] as of this encounter (statuses as of 12/08/2021) Resolved Problems Problem Noted Date Resolved Date [...] as of this encounter (statuses as of 12/08/2021) Immunizations Name Administration Dates Next Due H1N1 [...] Encounters Date Type Specialty Care Team Description 12/09/2021 Laboratory Laboratory [place] [address] [place] [address] 12/11/2021 [facility] [address] [place] [address] 12/15/2021 Telemedicine Psychiatry Hugo Alcantara MD [address] [place] [address] 07/24/2022 Office Visit Pulmonary Jesus Bonilla MD [address] [place] [address] Scheduled Orders Name Type Priority Associated Diagnoses Orde r Schedule PT INR Lab Routine Routine medical exam Expected: 12/09/2021, Expires: 3 Scheduled Procedures Name Priority Associated [...] Documents on File Type Date Recorded Patient Superintendent Commissary Expl 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 Advanced Directive 11/02/2011 12:00 AM Care Teams Spring Assembler Relationship Specialty Start Date End Date Roger Alexandra MD [address] [place] [address] [place] [address] PCP - General Family Medicine 12/29/19 documented as of this encounter
--- OUTSIDE RECORDS SUMMARY | 2023-07-25 04:48 | External Medical Summary ---
Author Name Unknown Address Unknown Organization K01:[facility] [address] [place] [address] Laboratory Report Ordering Provider Test Date Status GRAYSON BIGGS 12/05/2021 06:33:00 Final Observation Date Value Abnormality Reference (Units ) Status TSH 12/05/2021 06:33:00 3.40 0.27-4.20 (uIU/mL) Final Performing Location [facility] - [address] [place] [address]
--- OUTSIDE RECORDS SUMMARY | 2023-07-25 04:48 | External Medical Summary ---
Author Name Unknown Address Unknown Organization K09:[facility] [place] [address] Laboratory Report Ordering Provider Test Date Status PHONG BOND 12/04/2021 05:55:00 Final Observation Date Value Abnormality Reference (Units ) Status PT 12/04/2021 05:55:00 26.5 Above high normal 11 .5-14.6 (seconds) Final INR 12/04/2021 05:55:00 2.44 Above high normal 0. 84-1.14 Final Performing Location [facility] [place] [address]
--- OUTSIDE RECORDS SUMMARY | 2023-07-25 04:49 | External Medical Summary | Summary of Care ---
Author Name Unknown Organization [facility] Address [place] [address] Care Team Providers Care Nurse Advocate Name Role Phone Roger Alexandra MD Primary Care Provider [phone] [phone] Reason for Visit * Reason Comments Dosage Adjustment Via Phone (anticoag Cl inic) Encounter Details Date Type Department Care Team Description 11/21/2021 Anticoagulation Pharmacy Call Center 58-60 [facility] [place] [address] Telepharmacy, [facility] 58 60 [facility] [address] Anticoagulation management encounter* Allergies Active Allergy Reactions Severity Noted Date Comments Aspirin Unknown 12/12/2007 von Willebrand's disease Salicylates 03/01/2000 von Willebrand's disease documented as of this encounter (statuses as of 11/21/2021) Medications Medication Sig Dispensed Refills Start Date [...] 0 04/23/2021 Active Vitamin D3 1.25 MG (48329 UT) Oral CapsuleIndications:V itamin D deficiency Take [...] Severe. 90 Tablet 0 11/04/2021 Active Nystatin 632945 UNIT/GM External Powder (Nyamyc) apply to affected area twice a day 15 g 1 11/04/2021 Active Mirtazapine 7.5 MG Oral Tablet (Remeron) Take 1 Tablet by mouth at bedtime. 30 Tablet 1 11/10/2021 Active documented as of this encounter (statuses as of 11/21/2021) Active Problems Problem Noted Date Chronic hypoxemic [...] as of this encounter (statuses as of 11/21/2021) Resolved Problems Problem Noted Date Resolved Date [...] as of this encounter (statuses as of 11/21/2021) Immunizations Name Administration Dates Next Due H1N1 [...] encounter Progress Notes * DANIEL Morley - 11/21/2021 11:36 AM EST Contacts Type Contact Phone 11/21/2021 11:34 AM EST Phone (Outgoing) Kimberly Kendall (Self) [phone] (M) Left Message Advised patient to contact Anticoagulation Clinic if any unusual bruising or bleeding, recent illness, changes in medication, or questions/concerns. PT/INR results, Coumadin dose instructions, and next PT/INR date communicated as noted by Pharmacist: Yes DANIEL Morley 11/21/2021, 11:37 AM * Kim Mercado, [facility] - 11/21/2021 8:35 AM EST Images from the original note were not included. Coumadin Clinic (region specific) Current Warfarin Dose As of 11/21/2021 Warfarin maintenance plan: 10 mg (5 mg x 2) every Mon, Fri; 7.5 mg (5 mg x 1 and 2.5 mg x 1) all other days INR Result As of 11/21/2021 INR goal: 2.0-3.0 INR used for dosin.81 (11/20/2021) Warfarin Plan As of 11/21/2021 Full warfarin instructions: 11/21: 12.5 mg; Otherwise 10 mg every Mon, Fri; 7.5 mg all other days Next INR check: 11/27/2021 Repeat PT/INR in 1 week(s) Weekly dose: not changed- per past notes pt missed doses, INR now closer to goal. Will increase weekly dose at next visit if no missed doses and INR remains subtherapeutic. Additional Dosing Information: Description GML Tech to contact patient with dose instructions as noted. Kim Mercado RPh 11/21/2021, 8:37 AM documented in this encounter Plan of Treatment Upcoming Encounters Date Type Specialty Care Team Description 11/28/2021 [facility] 58 60 [facility] [address] 12/15/2021 Telemedicine Psychiatry Hugo Alcantara MD [address] [place] [address] 07/24/2022 Office Visit Pulmonary [facility] [address] [facility] [id number] Scheduled Procedures Name Priority Associated Diagnoses Date/Ti [...] SCREEN EVERY 3 YRS-AGE 45 AND ABOVE 06/02/2024 06/02/2021, 05/26/2021, 10/17/2020, Additional history exists Pneumococcal Vaccine: Pediatrics (0 [...] on File Type Date Recorded Patient Shuttle Operator Expl 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 Advanced Directive 11/02/2011 12:00 AM Care Teams Nurse Advocate Relationship Specialty Start Date End Date Roger Alexandra MD [address] [place] [address] [place] [address] PCP - General Family Medicine 12/29/19 documented as of this encounter
--- OUTSIDE RECORDS SUMMARY | 2023-07-25 04:49 | External Medical Summary | Summary of Care ---
Author Name Unknown Organization [place] [address] Care Team Providers Care Director Audience Marketing Name Role Phone Roger Alexandra MD Primary Care Provider [phone] [phone] Encounter Details Date Type Department Care Team Description 11/21/2021 Scan Encounter [facility] 132 [facility] [place] [address] Roger Alexandra MD 132 [facility] [place] [address] <No scans attached> Allergies Active Allergy Reactions Severity Noted Date Comments Aspirin Unknown 12/12/2007 von Willebrand's disease Salicylates 03/01/2000 von Willebrand's disease documented as of this encounter (statuses as of 11/24/2021) Medications Medication Sig Dispensed Refills Start Date [...] 0 04/23/2021 Active Vitamin D3 1.25 MG (48766 UT) Oral CapsuleIndications:V itamin D deficiency Take [...] Severe. 90 Tablet 0 11/04/2021 Active Nystatin 330539 UNIT/GM External Powder (Nyamyc) apply to affected area twice a day 15 g 1 11/04/2021 Active Mirtazapine 7.5 MG Oral Tablet (Remeron) Take 1 Tablet by mouth at bedtime. 30 Tablet 1 11/10/2021 Active documented as of this encounter (statuses as of 11/24/2021) Active Problems Problem Noted Date Chronic hypoxemic [...] as of this encounter (statuses as of 11/24/2021) Resolved Problems Problem Noted Date Resolved Date [...] as of this encounter (statuses as of 11/24/2021) Immunizations Name Administration Dates Next Due H1N1 [...] Encounters Date Type Specialty Care Team Description 11/27/2021 Laboratory Laboratory Processing [place], [facility] Mobile Home Draw [address] [place] [address] 11/28/2021 [facility] [address] [place] [address] 12/15/2021 Telemedicine Psychiatry Hugo Alcantara MD [address] [place], [place] [address] 07/24/2022 Office Visit Pulmonary Jesus Bonilla MD [address] [place] [address] Scheduled Procedures Name Priority Associated [...] EVERY 3 YRS-AGE 45 AND ABOVE 06/02/2024 11/21/2021, 06/02/2021, 05/26/2021, Additional history exists Pneumococcal [...] Documents on File Type Date Recorded Patient Housekeeping Cleaner Expl 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 Directive 11/02/2011 12:00 AM Care Teams Director Audience Marketing Relationship Specialty Start Date End Date Roger Alexandra MD 132 [facility] [place] [address] PCP - General Family Medicine 12/29/19 documented as of this encounter
--- OUTSIDE RECORDS SUMMARY | 2023-07-25 04:49 | External Medical Summary | Summary of Care ---
Author Name Unknown Organization [facility] Address [place] [address] Care Team Providers Care Roulette Dealer Name Role Phone Roger Alexandra MD Primary Care Provider [phone] [phone] Reason for Visit * Reason Comments Dosage Adjustment Via Phone (anticoag Cl inic) Encounter Details Date Type Department Care Team Description 12/01/2021 Anticoagulation Pharmacy Call Center 58-60 [facility] [place] [address] [facility], [facility] 60 [facility] [address] buttermilk drier operator current use 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* Allergies Active Allergy Reactions Severity Noted Date Comments Aspirin Unknown 12/12/2007 von Willebrand's disease Salicylates 03/01/2000 von Willebrand's disease documented as of this encounter (statuses as of 12/01/2021) Medications Medication Sig Dispensed Refills Start Date [...] 0 04/23/2021 Active Vitamin D3 1.25 MG (50954 UT) Oral CapsuleIndications:V itamin D deficiency Take [...] Severe. 90 Tablet 0 11/04/2021 Active Nystatin 057510 UNIT/GM External Powder (Nyamyc) apply to affected area twice a day 15 g 1 11/04/2021 Active Mirtazapine 7.5 MG Oral Tablet (Remeron) Take 1 Tablet by mouth at bedtime. 30 Tablet 1 11/10/2021 Active documented as of this encounter (statuses as of 12/01/2021) Active Problems Problem Noted Date Chronic hypoxemic [...] as of this encounter (statuses as of 12/01/2021) Resolved Problems Problem Noted Date Resolved Date [...] as of this encounter (statuses as of 12/01/2021) Immunizations Name Administration Dates Next Due H1N1 [...] Progress Notes * Kim Mercado RPh - 12/01/2021 12:11 PM EST Pt remains admitted to [facility]. ACC will follow up at discharge. Kim Mercado Rph, Pharm.D. 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
--- OUTSIDE RECORDS SUMMARY | 2023-07-25 04:49 | External Medical Summary | Summary of Care ---
Author Name Unknown Organization [place] [address] Care Team Providers Care Icu Manager Name Role Phone Roger Alexandra MD Primary Care Provider [phone] [phone] Encounter Details Date Type Department Care Team Description 11/24/2021 Orders Only Family Practice [facility] [address] [facility] [place] [address] Roger Alexandra MD 132 [facility] [place] [address] Allergies Active Allergy Reactions Severity Noted Date [...] 0 04/23/2021 Active Vitamin D3 1.25 MG (12275 UT) Oral CapsuleIndications:V itamin D deficiency Take [...] Severe. 90 Tablet 0 11/04/2021 Active Nystatin 414484 UNIT/GM External Powder (Nyamyc) apply to affected [...] Care Team Description 11/27/2021 Laboratory Laboratory Processing [facility] Mobile Home Draw [address] [place] [address] 11/28/2021 [facility] [address] [place] [address] 12/15/2021 Telemedicine Psychiatry Hugo Alcantara MD [address] [place] [address] 07/24/2022 Office Visit Pulmonary Jesus Bonilla MD [address], [place] [id number] Scheduled Procedures Name Priority Associated Diagnoses Date/Ti [...] Associated Diagnosis Comments OUTSIDE LAB-CORONAVIRUS (COVID-19) Routine 11/21/2021 XR CHEST 1 VIEW Routine 11/21/2021 CHEMISTRY-OUTSIDE Routine 11/21/2021 documented in this encounter Results * OUTSIDE LAB-CORONAVIRUS (COVID-19) (11/21/2021) [id number] LAB POSITIVE(A) NEGATIVE OUTSIDE LAB (SEE SCANNED REPORT) Specimen Narrative OUTSIDE LAB (SEE SCANNED REPORT) * CHEMISTRY-OUTSIDE (11/21/2021) CREATININE-OUTSIDE LAB 0.77 0.6 - 1.2 MG/DL OUTSIDE LAB (SEE SCANNED REPORT) EGFR-OUTSIDE LAB 83.3 ML/MIN OUTSIDE LAB (SEE SCANNED REPORT) POTASSIUM-OUTSIDE LAB 2.8(A) 3.5 - 5.1 MMOL/L OUTSIDE LAB (SEE SCANNED REPORT) GLUCOSE-OUTSIDE LAB 128(A) 70 - 99 MG/DL OUTSIDE LAB (SEE SCANNED REPORT) HOURS FASTING OUTSIDE LAB (S EE SCANNED REPORT) TRIGLYCERIDES-OUTSIDE LAB OUTSIDE LAB (SEE SCANNED REPORT) CHOLESTEROL-OUTSIDE LAB OUTSIDE LAB (SEE SCANNED REPORT) HDL-OUTSIDE LAB OUTSIDE LAB (SEE SCANNED REPORT) CHOL/HDL RATIO-OUTSIDE LAB OUTSIDE LAB (SEE SCANNED REPORT) LDL (CALCULATED)-OUTSIDE LAB OUTSIDE LAB (SEE SCANNED REPORT) LDL (DIRECT MEASURE)-OUTSIDE LAB OUTSIDE LAB (SEE SCANNED REPORT) HEMOGLOBIN, C7L-CGLXNAM LAB OUTSIDE LAB (SEE SCANNED REPORT) PHOSPHORUS-OUTSIDE LAB 2.7 2.5 - 4.9 MG/DL OUTSIDE LAB (SEE SCANNED REPORT) PTH-OUTSIDE LAB OUTSIDE LAB (SEE SCANNED REPORT) MICROALBUMIN RATIO-OUTSIDE LAB OUTSIDE LAB (SEE SCANNED REPORT) PROTEIN, UA-OUTSIDE LAB OUTSIDE LAB (SEE SCANNED REPORT) HEMOGLOBIN-OUTSIDE LAB 12.1 12.0 - 16.0 G/DL OUTSIDE LAB (SEE SCANNED REPORT) CHEMISTRY COMMENT-OUTSIDE LAB Comment:SEE SCAN - CBC,VBG,CHEM,M AG,TROPONIN,LI PASE,FLUA&B,RS V OUTSIDE LAB (SEE SCANNED REPORT) Specimen Narrative Performing Organization Address City/State/[employer] de Phone Number OUTSIDE LAB (SEE SCANNED REPORT) * XR CHEST 1 VIEW (11/21/2021) Anatomical Region Laterality Modality Chest Other Specimen Narrative Performing Organization Address City/State/[employer] de Phone Number OUTSIDE LAB (SEE SCANNED REPORT) documented in this encounter Advance Directives Documents on File Type Date Recorded Patient Bodybuilder Expl 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 Advanced Directive 11/02/2011 12:00 AM Care Teams Icu Manager Relationship Specialty Start Date End Date Roger Alexandra MD 132 [facility] [place] [id number] PCP - General Family Medicine 12/29/19 documented as of this encounter
--- OUTSIDE RECORDS SUMMARY | 2023-07-25 04:49 | External Medical Summary ---
Author Name Unknown Address Unknown Organization [id number]:LABORATORY [facility] [address] [place] [address] Laboratory Report Ordering Provider Test Date Status SUMAN STANFORD 11/13/2021 12:10:00 Final Observation Date Value Abnormality Reference (Units ) Status PT 11/13/2021 12:10:00 12.8 11.5-14.6 (seconds) Final INR 11/13/2021 12:10:00 0.94 0.84-1.14 Final Performing Location LABORATORY [facility] [address] [place] [id number]
--- OUTSIDE RECORDS SUMMARY | 2023-07-25 04:49 | External Medical Summary | Summary of Care ---
Author Name Unknown Organization [facility] [place] [address] Care Team Providers Care Senior J2Ee Developer Name Role Phone Roger Alexandra MD Primary Care Provider [phone] [phone] Reason for Visit * Reason Comments Dosage Adjustment Via Phone (anticoag Cl inic) Encounter Details Date Type Department Care Team Description 11/28/2021 Anticoagulation Pharmacy Call Center [address] [facility] [place] [address] Telepharmacy, [facility] [address] [facility] [address] [facility] current use 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* Allergies Active Allergy Reactions Severity Noted Date Comments Aspirin Unknown 12/12/2007 von Willebrand's disease Salicylates 03/01/2000 von Willebrand's disease documented as of this encounter (statuses as of 11/28/2021) Medications Medication Sig Dispensed Refills Start Date [...] 0 04/23/2021 Active Vitamin D3 1.25 MG (02724 UT) Oral CapsuleIndications:V itamin D deficiency Take [...] Severe. 90 Tablet 0 11/04/2021 Active Nystatin 732789 UNIT/GM External Powder (Nyamyc) apply to affected area twice a day 15 g 1 11/04/2021 Active Mirtazapine 7.5 MG Oral Tablet (Remeron) Take 1 Tablet by mouth at bedtime. 30 Tablet 1 11/10/2021 Active documented as of this encounter (statuses as of 11/28/2021) Active Problems Problem Noted Date Chronic hypoxemic [...] as of this encounter (statuses as of 11/28/2021) Resolved Problems Problem Noted Date Resolved Date [...] as of this encounter (statuses as of 11/28/2021) Immunizations Name Administration Dates Next Due H1N1 [...] Progress Notes * Kim Mercado RPh - 11/28/2021 11:07 AM EST Pt currently admitted to [facility] since 11/27 [facility] will follow up at discharge. Kim Mercado Rph, Pharm.D. Clinical Pharmacist Telepharmacy [phone] 11/28/2021,11:08 AM documented in this encounter Plan of Treatment Upcoming Encounters Date Type Specialty Care Team Description 12/01/2021 [facility] [address] [place] [address] 12/15/2021 Telemedicine Psychiatry Hugo Alcantara MD [address] [place] [address] 07/24/2022 Office Visit Pulmonary Jesus Bonilla MD [address] [place] [facility] [place] [address] Scheduled Procedures Name Priority Associated Diagnoses [...] as of this encounter Visit Diagnoses Diagnosis [facility] current use 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- Primary documented in this encounter Advance Directives Documents on File Type Date Recorded Patient Prawn Trawler Hand Expl 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 Directive 11/02/2011 12:00 AM Care Teams Senior J2Ee Developer Relationship Specialty Start Date End Date Roger Alexandra MD 132 [facility] [place] [address] PCP - General Family Medicine 12/29/19 documented as of this encounter
--- OUTSIDE RECORDS SUMMARY | 2023-07-25 04:49 | External Medical Summary ---
Author Name Unknown Address Unknown Organization K0G:LABORATORY [facility] [address] [place] [address] Laboratory Report Ordering Provider Test Date Status SUMAN STANFORD 11/20/2021 10:50:00 Final Observation Date Value Abnormality Reference (Units ) Status PT 11/20/2021 10:50:00 21.1 Above high normal 11 .5-14.6 (seconds) Final INR 11/20/2021 10:50:00 1.81 Above high normal 0. 84-1.14 Final Performing Location LABORATORY [facility] [address] [place] [address]
--- OUTSIDE RECORDS SUMMARY | 2023-07-25 04:49 | External Medical Summary | Summary of Care ---
Author Name Unknown Organization [place] [address] Care Team Providers Care Video Game Repair Technician Name Role Phone Roger Alexandra MD Primary Care Provider [phone] [phone] Reason for Visit * Reason Onset Date Comments case management 11/20/2021 CM FU Encounter Details Date Type Department Care Team Description 11/20/2021 Well Driller Telephone Family Practice [facility] [address] [place] [address] Cordelia Burns, RN 132 [facility] [place] [address] case management (CM FU) Allergies Active Allergy Reactions Severity Noted Date Comments Aspirin Unknown 12/12/2007 von Willebrand's disease Salicylates 03/01/2000 von Willebrand's disease documented as of this encounter (statuses as of 11/20/2021) Medications Medication Sig Dispensed Refills Start Date [...] 0 04/23/2021 Active Vitamin D3 1.25 MG (07492 UT) Oral CapsuleIndications:V itamin D deficiency Take [...] Severe. 90 Tablet 0 11/04/2021 Active Nystatin 623301 UNIT/GM External Powder (Nyamyc) apply to affected area twice a day 15 g 1 11/04/2021 Active Mirtazapine 7.5 MG Oral Tablet (Remeron) Take 1 Tablet by mouth at bedtime. 30 Tablet 1 11/10/2021 Active documented as of this encounter (statuses as of 11/20/2021) Active Problems Problem Noted Date Chronic hypoxemic [...] as of this encounter (statuses as of 11/20/2021) Resolved Problems Problem Noted Date Resolved Date [...] as of this encounter (statuses as of 11/20/2021) Immunizations Name Administration Dates Next Due H1N1 [...] Telephone Encounter - Cordelia Burns RN - 11/20/2021 2:16 PM EST Pt left message for CM regarding having a home covid test. States that her son and granddaughter are positive. She does not want to leave her home per message. Returned call, granddaughter reports that pt is in the bathroom, advised [facility] is not doing home testing, advised of drive up testing and needing to make an appt. Granddaughter reports that she has already told patient this information. Advised that some local pharmacies may have home testing, however would need to check with each pharmacy for supply Granddaughter verbalized understanding. documented in this encounter Plan of Treatment Upcoming Encounters Date Type Specialty Care Team Description 11/21/2021 [facility] [address] [place] [address] 12/15/2021 Telemedicine Psychiatry Hugo Alcantara MD [address] [place] [address] 07/24/2022 Office Visit [facility]monary [facility] [address] [facility] [address] Scheduled Procedures Name Priority [...] Documents on File Type Date Recorded Patient Insulator Tester Expl 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 Advanced Directive 11/02/2011 12:00 AM Care Teams Video Game Repair Technician Relationship Specialty Start Date End Date Roger Alexandra MD [address] [facility] [place] [address] PCP - General Family Medicine 12/29/19 documented as of this encounter
--- OUTSIDE RECORDS SUMMARY | 2023-07-25 04:49 | External Medical Summary ---
Author Name Unknown Address Unknown Organization K01:LABORATORY [facility] - [address] [place] [address] Laboratory Report Ordering Provider Test Date Status PHONG BOND 11/27/2021 18:35:00 Final Observation Date Value Abnormality Reference (Units) Status Bacteria identified in Unspecified specimen by Culture 11/27/2021 18:35:00 No significant growth Final Performing Location LABORATORY [facility] - [address] [place] [id number]
--- OUTSIDE RECORDS SUMMARY | 2023-07-25 04:49 | External Medical Summary | Summary of Care ---
Author Name Unknown Organization [place] [address] Care Team Providers Care Data Designer Name Role Phone Roger Alexandra MD Primary Care Provider [phone] [phone] Reason for Visit * Reason Comments Follow Up CPE - pt reports she would like to discuss issues with her stomach. pt states she has been very forgetful recently. Encounter Details Date Type Department Care Team Description 11/11/2021 Office Visit [facility] [address] [place] [address] Roger Alexandra MD 132 [facility] [place] [address] Chronic hypoxemic respiratory failure (HCC)*; Oxygen dependent; COPD, group B, by GOLD 2017 classification (HCC); Paroxysmal atrial fibrillation (HCC); Idiopathic cardiomyopathy (HCC); Morbid obesity due to excess calories (HCC); Chronic bilateral low back pain without sciatica; PTSD (post-traumatic stress disorder); Moderate episode of recurrent major depressive disorder (HCC); History of multiple strokes; SIMA (generalized anxiety disorder); Drug-seeking behavior; Narcotic addiction (HCC); Acquired hypothyroidism; Need for influenza vaccination Allergies Active Allergy Reactions Severity Noted Date Comments Aspirin Unknown 12/12/2007 von Willebrand's disease Salicylates 03/01/2000 von Willebrand's disease documented as of this encounter (statuses as of 11/11/2021) Medications Medication Sig Dispensed Refills Start Date [...] 0 04/23/2021 Active Vitamin D3 1.25 MG (15403 UT) Oral CapsuleIndications:V itamin D deficiency Take [...] Severe. 90 Tablet 0 11/04/2021 Active Nystatin 446151 UNIT/GM External Powder (Nyamyc) apply to affected area twice a day 15 g 1 11/04/2021 Active Mirtazapine 7.5 MG Oral Tablet (Remeron) Take 1 Tablet by mouth at bedtime. 30 Tablet 1 11/10/2021 Active documented as of this encounter (statuses as of 11/11/2021) Active Problems Problem Noted Date Chronic hypoxemic [...] as of this encounter (statuses as of 11/11/2021) Resolved Problems Problem Noted Date Resolved Date [...] as of this encounter (statuses as of 11/11/2021) Immunizations Name Administration Dates Next Due H1N1 [...] Sign Reading Time Taken Comments Blood Pressure 116/90 11/11/2021 6:01 PM EST Pulse 103 11/11/2021 6:01 PM EST Temperature 36.9 C (98.5 F) 11/11/2021 6:01 PM ES T Respiratory Rate - - Oxygen Saturation 91% 11/11/2021 6:01 PM EST Inhaled Oxygen Concentration - - Weight 116.6 kg (257 lb) 11/11/2021 6:01 PM EST Height 157.5 cm (5' 2.01") 11/11/2021 6:01 PM ES T Body Mass Index 46.99 11/11/2021 6:01 PM EST documented in this encounter Progress Notes * Roger Alexandra MD - 11/11/2021 6:47 PM EST SUBJECTIVE: Kimberly Kendall is a 61 year old female. CC: Chief Complaint Patient presents with Follow Up CPE - pt reports she would like to discuss issues with her stomach. pt states she has been very forgetful recently. Nursing Notes: RANDI Jones 11/11/21 1806 Signed Chief Complaint Patient presents with Follow Up CPE - pt reports she would like to discuss issues with her stomach. pt states she has been very forgetful recently. HPI: Medically complex 61 year old female here with daughter today for follow up. She is essentially homebound. Has a lot of psychosocial barriers to care. Following with psychiatry. She is medically stable. Has home health care case manager. She is concerned about some mild forgetfulness. Long discussion today re: her overall disease burden and medication regiment. I cannot convince her to get her covid 19 vaccine. Ieducated the patient and her daughter about this. She is willing to have her flu vaccine. There have been some issues with her honesty with our [facility] and home health care case manager about the level of care she is receiving. From my standpoint, I am doing about all I can for her medically at this juncture. PHM: Patient Active Problem List Diagnosis Code Irritable bowel syndrome with diarrhea K58.0 SIMA (generalized anxiety disorder) F41.1 Obstructive sleep apnea G47.33 Patent foramen ovale Q21.1 Von Willebrand disease (HCC) D68.0 Idiopathic cardiomyopathy (HCC) I42.8 Narcotic addiction (HCC) F11.20 Acquired hypothyroidism E03.9 Oxygen dependent Z99.81 Moderate [...] group B, by GOLD 2017 classification (HCC) J44.9 Chronic hypoxemic respiratory failure (HCC) J96.11 Past Surgical History: Procedure Laterality Date COLONOSCOPY, DIAGNOSTIC (RECTUM) 11/12/2020 large adenomatous polyp, repeat 6 mo / [facility] COLONOSCOPY, W/BIOPSY 10/06/2010 adenomatous/repeat colonoscopy in 1 yr COLONOSCOPY, W/BIOPSY 05/22/2013 hyperplastic polyp EGD, FLEXIBLE, DIAGNOSTIC 02/26/2015 retained food/[facility] EGD, FLEXIBLE, DIAGNOSTIC 11/12/2020 Gastric submucosal mass / [facility] EGD, FLEXIBLE, DIAGNOSTIC 11/06/2020 gastritis / [facility] EGD, FLEXIBLE, W/BIOPSY 05/19/2013 EGD, W/ENDOSCOPIC US 11/05/2011 UPPER GI ENDOSCOPY ENDOSCOPIC ULTRASOUND performed by BERENICE ASHBY at ENDOSCOPY [facility]; REPAIR INITIAL INGUINAL HERNIA [...] Types: Cigarettes Quit date: 01/17/2015 Years since quittin.8 Smokeless tobacco: Never Used Tobacco comment: will only try with patches which are not covered by insurance Vaping Use Vaping Use: Every day Substance and Sexual Activity Alcohol use: No Drug use: No Sexual activity: Yes Partners: Male Other Topics Concern Not on file Social History Narrative Not on file Social Determinants of Health Financial Resource Strain: Not on file Food Insecurity: Not on file Transportation Needs: Not on file Physical Activity: Not on file Stress: Not on file Social Connections: Not on file Intimate Partner Violence: Not on file Housing Stability: Not on file No outpatient medications have been marked as taking for the 11/11/21 encounter (Office Visit) withRoger Alexandra MD. Review of patient's allergies indicates: Allergen Reactions Aspirin Unknown von Willebrand's disease Salicylates von Willebrand's disease OBJECTIVE: BP 116/90 | Pulse 103 | Temp 36.9 C (98.5 F) (Tympanic) | Ht (!) 1.575 m (5' 2.01") | Wt 116.6 kg (257 lb) | SpO2 91% | BMI 46.99 kg/m | BSA 2.26 m General: obese, nad, using O2 via NC Skin: skin color, texture, turgor are normal, no rashes or significant lesions Head: Normocephalic, No masses, lesions, tenderness or abnormalities Oropharynx: normal Eye Exam: PERRLA, EOMI, Conjunctiva are pink and non-injected, sclera clear Neck: supple, no adenopathy, no bruits, thyroid normal size, non-tender, without nodularity Heart: regular rate & rhythm, no murmurs and no gallops Lungs: chest symmetric with normal AP diameter, no chest deformities noted, no chest wall tenderness, lungs clear to auscultation Pulses: radial=2/4, carotid=2/4 w/o bruits, posterior tibial=2/4 Abdomen: abdomen soft, non-tender, normal bowel sounds and no masses or organomegaly Extremities: no joint deformities, effusion, or inflammation, no edema, no clubbing, no cyanosis ASSESSMENT/PLAN: Kimberly was seen today for follow up. All diseases/problems listed below are stable with current rx. Diagnoses and all orders for this visit: Chronic hypoxemic respiratory failure (HCC) Oxygen dependent COPD, group B, by GOLD 2017 classification (HCC) Paroxysmal atrial fibrillation (HCC) Idiopathic cardiomyopathy (HCC) Morbid obesity due to excess calories (HCC) Chronic bilateral low back pain without sciatica PTSD (post-traumatic stress disorder) Moderate episode of recurrent major depressive disorder (HCC) History of multiple strokes SIMA (generalized anxiety disorder) Drug-seeking behavior Narcotic addiction (HCC) Acquired hypothyroidism Need for influenza vaccination - INFLUENZA VACC, QUAD, PF, 6 MONTHS & UP, 0.5 ML, IM Follow Up: Return in about 6 months (around 05/12/2022). Roger Alexandra MD documented in this encounter Nursing Notes * RANDI Jones - 11/11/2021 6:03 PM EST Chief Complaint Patient presents with Follow Up CPE - pt reports she would like to discuss issues with her stomach. pt states she has been very forgetful recently. documented in this encounter Plan of Treatment Upcoming Encounters Date Type Specialty Care Team Description 11/13/2021 Laboratory Laboratory Processing [facility] Mobile Home Draw [address] [place] [address] 11/13/2021 [facility] [address] [place] [address] 12/15/2021 Telemedicine Psychiatry Hugo Alcantara MD [address] [facility] [place] [address] 07/24/2022 Office Visit Pulmonary Jesus Bonilla MD [address] [place] [id number] Scheduled Procedures Name Priority Associated Diagnoses Date/Ti [...] respiratory failure (HCC)- Primary Chronic respiratory failure Oxygen dependent Dependence on supplemental oxygen COPD, group B, by GOLD 2017 classification (HCC) Paroxysmal atrial fibrillation (HCC) Atrial fibrillation Idiopathic cardiomyopathy (HCC) Other primary cardiomyopathies Morbid obesity due to excess calories (HCC) Chronic bilateral low back pain without sciatica PTSD (post-traumatic stress disorder) Posttraumatic stress disorder Moderate episode of recurrent major depressive disorder (HCC) History of multiple strokes SIMA (generalized anxiety disorder) Generalized anxiety disorder Drug-seeking behavior Other, mixed, or unspecified nondependent drug abuse, unspecified Narcotic addiction (HCC) Unspecified drug dependence, unspecified Acquired hypothyroidism Unspecified hypothyroidism Need for influenza vaccination Need for prophylactic vaccination and inoculation against influenza documented in this encounter Advance Directives Documents on File Type Date Recorded Patient Publications Editor Expl 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 Advanced Directive 11/02/2011 12:00 AM Care Teams Data Designer Relationship Specialty Start Date End Date Roger Alexandra MD 132 [facility] [place] [address] PCP - General Family Medicine 12/29/19 documented as of this encounter
--- OUTSIDE RECORDS SUMMARY | 2023-07-25 04:49 | External Medical Summary | Summary of Care ---
Author Name Unknown Organization [facility] [place] [address] Care Team Providers Care Radiology Technologist Name Role Phone Roger Alexandra MD Primary Care Provider [phone] [phone] Reason for Visit * Reason Comments Dosage Adjustment Via Phone (anticoag Cl inic) Encounter Details Date Type Department Care Team Description 11/13/2021 Anticoagulation Pharmacy Call Center 58[address] [facility] [place] [address] Telepharmacy, [facility] [address] medical terminologist current use 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* Allergies Active Allergy Reactions Severity Noted Date Comments Aspirin Unknown 12/12/2007 von Willebrand's disease Salicylates 03/01/2000 von Willebrand's disease documented as of this encounter (statuses as of 11/13/2021) Medications Medication Sig Dispensed Refills Start Date [...] 0 04/23/2021 Active Vitamin D3 1.25 MG (90904 UT) Oral CapsuleIndications:V itamin D deficiency Take [...] Severe. 90 Tablet 0 11/04/2021 Active Nystatin 479570 UNIT/GM External Powder (Nyamyc) apply to affected area twice a day 15 g 1 11/04/2021 Active Mirtazapine 7.5 MG Oral Tablet (Remeron) Take 1 Tablet by mouth at bedtime. 30 Tablet 1 11/10/2021 Active documented as of this encounter (statuses as of 11/13/2021) Active Problems Problem Noted Date Chronic hypoxemic [...] as of this encounter (statuses as of 11/13/2021) Resolved Problems Problem Noted Date Resolved Date [...] 02/04/2006 12/21/2008 Atrial septal aneurysm 02/04/2006 9 medical terminologist current use 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 0 [...] as of this encounter (statuses as of 11/13/2021) Immunizations Name Administration Dates Next Due H1N1 [...] Progress Notes * Kim Mercado RPh - 11/13/2021 2:12 PM EST Images from the original note were not included. Medication Therapy Disease Management - Anticoagulation Patient: Kimberly Kendall : 1960 Contacts Type Contact Phone 11/13/2021 02:14 PM EST Phone (Outgoing) Kimberly Kendall (Self) [phone] (M) Spoke to Patient Current Warfarin Dose As of 11/13/2021 Warfarin maintenance plan: 10 mg (5 mg x 2) every Mon, Fri; 7.5 mg (5 mg x 1 and 2.5 mg x 1) all other days Patient-Reported Symptoms: Patient Findings Positives: Missed doses Comments: Pt confirms she has not been taking Warfarin, states she had a cold this week and missed a few doses. INR has been normalized for over 2 months. Advised patient of risks of non-compliance including another stroke and . Pt confirms she has 5mg tablets at home and will start taking today. Advised patient if INR does not increase and she continues not taking medication there is no reason for us to send the mobile lab. INR Result As of 11/13/2021 INR goal: 2.0-3.0 INR used for dosin.94 (11/13/2021) Warfarin Plan As of 11/13/2021 Full warfarin instructions: 11/13: 15 mg; 11/14: 15 mg; Otherwise 10 mg every Mon, Fri; 7.5 mg all other days Next INR check: 11/20/2021 Additional Dosing Information: Description GML Repeat PT/INR in 1 week(s) Weekly dose: not changed Kim Mercado RPh Clinical Pharmacist 11/13/2021, 2:20 PM documented in this encounter Plan of Treatment Upcoming Encounters Date Type Specialty Care Team Description 11/21/2021 [facility] [address] [facility] [place] [address] 12/15/2021 Telemedicine Psychiatry Hugo Alcantara MD [address] [place] [address] 07/24/2022 Office Visit Pulmonary Jesus Bonilla MD [address] [facility] [place] [address] Scheduled Procedures Name Priority Associated Diagnoses [...] as of this encounter Visit Diagnoses Diagnosis medical terminologist current use 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- Primary documented in this encounter Advance Directives Documents on File Type Date Recorded Patient Decaler Expl 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 Advanced Directive 11/02/2011 12:00 AM Care Teams Radiology Technologist Relationship Specialty Start Date End Date Roger Alexandra MD [address] [place] [address] [place] [address] PCP - General Family Medicine 12/29/19 documented as of this encounter
--- OUTSIDE RECORDS SUMMARY | 2023-07-25 04:49 | External Medical Summary | Summary of Care ---
Author Name Unknown Organization [place] [address] Care Team Providers Care Stove Polisher Name Role Phone Roger Alexandra MD Primary Care Provider [phone] [phone] Encounter Details Date Type Department Care Team Description 11/10/2021 [facility]medicine [facility] [address] [place] [address] Hugo Alcantara MD [address] [place] [address] SIMA (generalized anxiety disorder)* Allergies Active Allergy Reactions Severity Noted Date Comments Aspirin Unknown 12/12/2007 von Willebrand's disease Salicylates 03/01/2000 von Willebrand's disease documented as of this encounter (statuses as of 11/10/2021) Medications Medication Sig Dispensed Refills Start Date [...] 0 04/23/2021 Active Vitamin D3 1.25 MG (84024 UT) Oral CapsuleIndications :Vitamin D deficiency Take [...] Severe. 90 Tablet 0 11/04/2021 Active Nystatin 536427 UNIT/GM External Powder (Nyamyc) apply to affected area twice a day 15 g 1 11/04/2021 Active Mirtazapine 7.5 MG Oral Tablet (Remeron) Take 1 Tablet by mouth at bedtime. 30 Tablet 1 11/10/2021 Active traZODone HCl 150 MG Oral Tablet (Desyrel) Take 1 Tablet by mouth at bedtime. 30 Tablet 1 09/29/2021 Discontinued documented as of this encounter (statuses as of 11/10/2021) Active Problems Problem Noted Date Chronic hypoxemic [...] as of this encounter (statuses as of 11/10/2021) Resolved Problems Problem Noted Date Resolved Date [...] 12/21/2008 Atrial septal aneurysm 02/04/2006 02/06/200 9 termite control servicer current use of [...] as of this encounter (statuses as of 11/10/2021) Immunizations Name Administration Dates Next Due H1N1 2009 Influenza, IM 12/19/2009 Pneumococcal Polysaccharide PPV23 (Pneumovax) 03/20/2009 Seasonal Influenza, Quadriva lent, No Preserve, IM [...] Progress Notes * Hugo Alcantara MD - 11/10/2021 11:32 AM EST After connecting through [employer] patient was verified with two unique identifiers. Patient (or authorized legal ambulatory services representative) was then informed that this was a Telemedicine visit and being conducted confidentially over secure lines. Methods to assure confidentiality were taken. Patient acknowledged consent and understanding of privacy and security of the Telemedicine visit. The patient agreed to participate. PSYCHOTHERAPY & MEDICATION MANAGEMENT RETURN VISIT NOTE Psychiatry, [address] [facility] [address] 08/18/2021 Kimberly Kendall CHIEF COMPLAINT: medication management INTERVAL HISTORY: appt was conducted telephonically. she states her sleep has been broken up and she is having nightmares. She feels trazodone has worsened this. She states her anxiety sx "have not changed at all" with the increase in Prozac. She states her mood has not changed and notes "I'm always down". She states she continues to "miss everyone". She inquires about further increasing Ativan. Discussed risks with this. OBJECTIVE DATA: COLUMBIA-SUICIDE SEVERITY RATING [...] 120 mL 0 Vitamin D3 1.25 MG (09976 UT) Oral Capsule Take 1 Cap by [...] 2 times a day. 60 Tab 2 traZODone HCl 150 MG Oral Tablet (Desyrel) Take 1 Tablet by mouth at bedtime. 30 Tablet 1 LORazepam 0.5 MG Oral Tablet (Ativan) Take 1 Tablet by mouth 3 times a day as needed for Anxiety. 90 Tablet 1 FLUoxetine HCl 20 MG Oral Capsule (PROzac) Take 1 Capsule by mouth daily. In addition to 40mg cap for a total of 60mg daily 30 Capsule 2 traMADol HCl 100 MG Oral Tablet Take 100 mg by mouth every 8 hours as needed for Pain, Moderateor Pain, Severe. 90 Tablet 0 Nystatin 229401 UNIT/GM External Powder (Nyamyc) apply to affected area twice a day 15 g 1 No current facility-administered medications for this [...] evidenced by: following conversation - intact Insight: good Judgment: good FORMULATION: Kimberly Kendall is [id number] old female with presenting symptoms ofdepression, anxiety, [...] worsened anxietyand has been stopped. Stop Seroquel. Remeron was stopped in the hospital.presenting with acute worsening of sleep and ongoing anxiety sx. Also strugglingwith demoralization and grief DIAGNOSIS: Major depressive disorder recurrent episode moderate Generalized Anxiety Disorder PTSD Bereavement TREATMENT PLAN: - I have reviewed the patients controlled substance dispensing history in the Prescription Drug Monitoring Program in compliance with the [facility] regulations before prescribing a controlled substance. -- dc trazodone as it worsened nightmares -- start Remeron 7.5mg nightly for sleep -- cont Prozac 40mg qday -- cont Ativan 0.5mg TID -- cont Buspar 10mg BID -- recommend therapy; referral previously placed RTC: [...] Encounters Date Type Specialty Care Team Description 11/11/2021 Office Visit Family Medicine Roger Alexandra MD [address] [facility] [place] [address] 11/13/2021 Laboratory Laboratory Processing [facility], [facility] Mobile Home Draw [address] [place] [address] 11/13/2021 [facility] 58 [address] [place] [address] 07/24/2022 Office Visit Pulmonary Jesus Bonilla MD [address] [facility] [place] [id number] Scheduled Procedures Name Priority Associated Diagnoses Date/Ti [...] visit until score < 10) 04/24/2021 04/23/2021 Influenza Vaccine (FLU shot) (#1) 2021 09/15/2020, 10/03/2017, 08/21/2015, Additional history exists DIABETES SCREEN EVERY 3 YRS-AGE 45 AND ABOVE 06/02/2024 06/02/2021, 05/26/2021, 10/17/2020, Additional history exists Pneumococcal Vaccine: Pediatrics (0 to 5 Years) and At-Risk Patients (6 to 64 Years) (2 of 2 - PPSV23) 2025 03/20/2009 COLONOSCOPY-EVERY 5 YRS AGES 18-100 11/12/2025 11/12/2020, 05/22/2013, 08/21/2011, Additional history exists MENINGOCOCCAL (MENACTRA/MENVEO) Aged Out No longer eligible based on patient's age to complete this topic documented as of this encounter Implants Not on filedocumented as of this encounter Visit Diagnoses Diagnosis SIMA (generalized anxiety disorder)- Primary Generalized anxiety disorder documented in this encounter Advance Directives Documents on File Type Date Recorded Patient Fleet Administrative Assistant Expl 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 Advanced Directive 11/02/2011 12:00 AM Care Teams Stove Polisher Relationship Specialty Start Date End Date Roger Alexandra MD [address] [facility] [place] [address] PCP - General Family Medicine 12/29/19 documented as of this encounter
--- OUTSIDE RECORDS SUMMARY | 2023-07-25 04:49 | External Medical Summary | Summary of Care ---
Author Name Unknown Organization [place] [address] Care Team Providers Care Import Clerk Name Role Phone Roger Alexandra MD Primary Care Provider [phone] [phone] Encounter Details Date Type Department Care Team Description 11/21/2021 Scan Encounter [facility] [address] [facility] [place] [address] Roger Alexandra MD [address] [facility] [place] [address] <No scans attached> Allergies Active Allergy Reactions [...] 0 04/23/2021 Active Vitamin D3 1.25 MG (73152 UT) Oral CapsuleIndications:V itamin D deficiency Take [...] Severe. 90 Tablet 0 11/04/2021 Active Nystatin 946128 UNIT/GM External Powder (Nyamyc) apply to affected [...] Team Description 11/27/2021 Laboratory Laboratory Processing [facility] Mobile Home Draw [address] [place] [address] 11/28/2021 [facility] [address] [place] [address] 12/15/2021 Telemedicine Psychiatry Hugo Alcantara MD [address] [place], [place] [phone] 07/24/2022 Office Visit Pulmonary Jesus Bonilla MD [address] [place] [address] Scheduled Procedures Name Priority Associated [...] on File Type Date Recorded Patient Chief Science Officer Expl 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 Advanced Directive 11/02/2011 12:00 AM Care Teams Import Clerk Relationship Specialty Start Date End Date Roger Alexandra MD [address] [facility] [place] [address] PCP - General Family Medicine 12/29/19 documented as of this encounter
--- OUTSIDE RECORDS SUMMARY | 2023-07-25 04:49 | External Medical Summary | Summary of Care ---
Author Name Unknown Organization [facility] Address [place] [address] Care Team Providers Care Farmer Diversified Crops Name Role Phone Roger Alexandra MD Primary Care Provider [phone] [phone] Encounter Details Date Type Department Care Team Description 11/21/2021 Result Scan Pharmacy Call Center [address] [facility] [place] [address] [facility] [address] <No scans attached> Allergies Active Allergy Reactions [...] 0 04/23/2021 Active Vitamin D3 1.25 MG (33107 UT) Oral CapsuleIndications:V itamin D deficiency Take [...] Severe. 90 Tablet 0 11/04/2021 Active Nystatin 444762 UNIT/GM External Powder (Nyamyc) apply to affected [...] Team Description 11/27/2021 Laboratory Laboratory Processing [facility], [facility] Mobile Home Draw [address] [place] [address] 11/28/2021 [facility] 58 [address] [place] [address] 12/15/2021 Telemedicine Psychiatry Hugo Alcantara MD [address] [place] [address] 07/24/2022 Office Visit Pulmonary Jesus Bonilla MD [address] [place] [facility] [place] [id number] Scheduled Procedures Name Priority Associated Diagnoses Date/Ti [...] Date/Time Associated Diagnosis Comments OUTSIDE LAB RESULTS 11/21/2021 documented in this encounter Results * OUTSIDE LAB RESULTS (11/21/2021) Specimen Narrative documented in this encounter Advance Directives Documents on File Type Date Recorded Patient Glassine Machine Tender Expl 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 Advanced Directive 11/02/2011 12:00 AM Care Teams Farmer Diversified Crops Relationship Specialty Start Date End Date Roger Alexandra MD [address] [facility] [place] [address] PCP - General Family Medicine 12/29/19 documented as of this encounter
--- OUTSIDE RECORDS SUMMARY | 2023-07-25 04:50 | External Medical Summary | Summary of Care ---
Author Name Unknown Organization [place] [address] Care Team Providers Care Taxonomy Teacher Name Role Phone Roger Alexandra MD Primary Care Provider +1 [phone] Reason for Visit * Reason Comments [facility] Care Coordination Services Encounter Details Date Type Department Care Team Description 11/10/2021 Home Visit Care Coordination [address] [place] [address] [facility], [facility] [address] [place] [address] Allergies Active Allergy Reactions Severity Noted Date [...] 0 04/23/2021 Active Vitamin D3 1.25 MG (34430 UT) Oral CapsuleIndications:V itamin D deficiency Take [...] Severe. 90 Tablet 0 11/04/2021 Active Nystatin 556006 UNIT/GM External Powder (Nyamyc) apply to affected [...] as of this encounter Progress Notes * Fawn [facility] - 11/10/2021 1:16 PM EST EMERSON contacted the pt and reminded her of PCP appt tomorrow. She was aware. She states that grand daughter has covid but was outside on [place] day while family opened gifts. She said she is coughing some, but if anything worse will contact CM documented in this encounter Plan of Treatment Upcoming Encounters Date Type Specialty Care Team Description 11/11/2021 Office Visit Family Medicine Roger Alexandra MD [address] [facility] [place] [address] 11/13/2021 Laboratory Laboratory Processing [facility], [facility] Mobile Home Draw [address] [place], [place] [phone] 11/13/2021 [facility] [address] [place] [address] 07/24/2022 Office Visit Pulmonary Irene, Jesus Mancini MD [address] [facility] [place] [id number] Scheduled Procedures Name Priority Associated Diagnoses Date/Ti [...] Documents on File Type Date Recorded Patient Green Building Materials Distributor Expl 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 Advanced Directive 11/02/2011 12:00 AM Care Teams Taxonomy Teacher Relationship Specialty Start Date End Date Roger Alexandra MD [address] [facility] [place] [id number] PCP - General Family Medicine 12/29/19 documented as of this encounter
--- OUTSIDE RECORDS SUMMARY | 2023-07-25 04:50 | External Medical Summary ---
Author Name Unknown Address Unknown Organization [facility] [place] [address] [place] [address] Laboratory Report Ordering Provider Test Date Status SUMAN STANFORD 11/06/2021 09:38:00 Final Observation Date Value Abnormality Reference (Units ) Status PT 11/06/2021 09:38:00 13.6 11.5-14.6 (seconds) Final INR 11/06/2021 09:38:00 1.01 0.84-1.14 Final Performing Location [facility] [place] [address] [place] [address]
--- OUTSIDE RECORDS SUMMARY | 2023-07-25 04:50 | External Medical Summary | Summary of Care ---
Author Name Unknown Organization [place] [address] Care Team Providers Care Turning And Beading Machine Operator Name Role Phone Roger Alexandra MD Primary Care Provider [phone] Reason for Visit * Reason Onset Date Comments case management 11/04/2021 Caregiver concer ns Encounter Details Date Type Department Care Team Description 11/04/2021 Human Resources Benefits Coordinator Telephone Family Practice [facility] [address] [facility] [place] [address] Cordelia Burns, RN 132 [facility] [place] [address] case management (Caregiver concerns) Allergies Active Allergy Reactions Severity Noted Date Comments Aspirin Unknown 12/12/2007 von Willebrand's disease Salicylates 03/01/2000 von Willebrand's disease documented as of this encounter (statuses as of 11/04/2021) Medications Medication Sig Dispensed Refills Start Date End Date Status OXYGEN 4 L during the day as needed and at bedtime 0 02/14/2015 Active Acetaminophen (TYLENOL) 325 MG CAPS Take by mouth. 0 Active Cholestyramine Light (QUESTRAN LIGHT) 4 GM/DOSE POWDIndications:Col itis Take 1 Scoopful Dosing Unit by mouth [...] 0 04/23/2021 Active Vitamin D3 1.25 MG (89942 UT) Oral CapsuleIndications: Vitamin D deficiency Take [...] 62.5-25 MCG/INH Inhalation Aerosol Powder Breath Activated (umeclidinium-vilan terol) Inhale 1 Puff by mouth daily. 30 [...] a day. 60 Tab 2 09/08/2021 Active traZODone HCl 150 MG Oral Tablet (Desyrel) Take 1 Tablet by mouth at bedtime. 30 Tablet 1 09/29/2021 Active LORazepam 0.5 MG Oral Tablet (Ativan) Take 1 Tablet by mouth 3 times a day as needed for Anxiety. 90 Tablet 1 10/08/2021 Active FLUoxetine HCl 20 MG Oral Capsule (PROzac) Take 1 Capsule by mouth daily. In addition to 40mg cap for a total of 60mg daily 30 Capsule 2 10/01/2021 Active Nystatin 016528 UNIT/GM External Powder (Nystop) 1 harriet, Powder, Topical twice daily, 1 EA, 0 Refill(s), Indication: Candidiasis of Skin, Route to [facility]ically, [facility] [address], [address], 10/02/20 10:43:00 EST, Height/Length Dosing, cm, 116.3, 10/02/20 10:43:00 EST, Weight Dosing, kg 15 g 1 11/03/2021 Active traMADol HCl 100 MG Oral TabletIndications:C hronic bilateral low back pain without sciatica Take 100 mg by mouth every 8 hours as needed for Pain, Moderate or Pain, Severe. 90 Tablet 0 11/04/2021 Active documented as of this encounter (statuses as of 11/04/2021) Active Problems Problem Noted Date Chronic hypoxemic [...] as of this encounter (statuses as of 11/04/2021) Resolved Problems Problem Noted Date Resolved Date [...] as of this encounter (statuses as of 11/04/2021) Immunizations Name Administration Dates Next Due H1N1 [...] Telephone Encounter - Cordelia Burns RN - 11/04/2021 10:21 AM EST Spoke with Sandy at length. She spoke with son and granddaughter. Noted that patient has been telling stories that are not accurate. Family is assisting patient at home per son. Granddaughter hung up on Sandy. Sandy did let son and patient know that we are mandated reporters and that is why the discussions were occurring yesterday about patient's statements. Will plan for home visit in November in Coordination with Sandy from [facility] to do a joint home visit with [facility]. * Telephone Encounter - Cordelia Burns RN - 11/04/2021 8:22 AM EST Received call from patient, reports that she is having issues with her phone, that is why she missed my call. States that "the lady" that has been out to her house told all of this stuff that is not true. States that her granddaughter comes 2-3 times per week to bath her, depending on her incontinence. Her son lives 2 doors away and will help her with anything. States that she is very upset with the lady that was just there. States that Sandy called her granddaughter at work and yelled at her yesterday. "While she was working." Advised patient that the statements that she has been making about "no one" helping her at home. Not bathing, not doing anything for her. Are concerning and need to be addressed by the medical staff due to safety concerns with her living alone at home. She has not had a caregiver through [employer] since August when her caregiver abruptly quit. Advised patient that I made the phone call to Sandy [facility] regarding concerns. Advised patient that she is part of the Waiver program and that ensues family as a secure caregiverwith paid caregivers as a back up. As we are currently in the situation that family needs to provide care. She asks why the granddaughter can not get paid to care for her, advised to discuss with Sandy. She then states that her family shouldn't have to take care of her as they have jobs and families of their own. Advises that patient is not safe to live alone with out their support. IF they are not able to support her at home, will need to explore options for a facility. Pt does not want to go to a facility. Then goes on to tell CM that her family does help her and that she was upset and scared, that is why she said that no one was helping her. States that she better get right what she is saying as she is on a recorded line. States that every one that gets close to her dies, like her and her daughter. Reminded patient of her appt with Dr Alexandra next week and that she has no showed on other appts. Shedoes not recall this. Also No show for Mobile [facility], states well that was only twice. She then questions if she has the start of Alzheimer's. Reviewed the importance of follow up with the provider. Discussed with patient that maybe conversations should be with her and her granddaughter, as she ishaving trouble remembering some details. documented in this encounter Plan of Treatment Upcoming Encounters Date Type Specialty Care Team Description 11/06/2021 Laboratory Laboratory Processing [facility] [address] [facility] [address] 11/06/2021 [facility] [address] [facility] [place] [address] 11/10/2021 Telemedicine Psychiatry Hugo Alcantara MD [address] [place] [address] 11/10/2021 Home Visit Family Medicine Fawn Godfrey, Community Health Liaison Inspection Laboratory Assistant [address] [place] [address] 11/11/2021 Office Visit Family Medicine Roger Alexandra MD 132 [place] [address] 07/24/2022 Office Visit Pulmonary Jesus Bonilla MD [address] [place] [address] Scheduled Procedures Name Priority Associated Diagnoses Date/Ti me COLONOSCOPY FLEXIBLE PROXIMAL DIAGNOSTIC Recall History of colon polyps Health Maintenance Due Date Last Done Comments COVID-19 Vaccine (1) 1965 Depression Screening, Annual for Pts 12 and Over 1972 04/23/2021 Zoster Vaccines (1 of 2) 2010 BREAST CANCER SCREENING DISCUSSION YEARLY AGES 40-75 10/28/2016 10/28/2015, 04/27/2014, 05/12/2013, Additional history exists DTaP,Tdap,and Td Vaccines (2 - Td or Tdap) 06/27/2018 06/27/2008 LIPID SCREEN EVERY 5 YRS-WOMEN AGE 45-75 09/25/2020 09/25/2015, 02/14/2015, 05/01/2011, Additional history exists Influenza Vaccine (FLU shot) (#1) 2021 09/15/2020, [...] on File Type Date Recorded Patient Marketing Support Assistant Expl 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 Advanced Directive 11/02/2011 12:00 AM Care Teams Turning And Beading Machine Operator Relationship Specialty Start Date End Date Roger Alexandra MD [address] [place] [address] [place] [address] PCP - General Family Medicine 12/29/19 documented as of this encounter
--- OUTSIDE RECORDS SUMMARY | 2023-07-25 04:50 | External Medical Summary | Summary of Care ---
Author Name Unknown Organization [facility] [place] [address] Care Team Providers Care Television Writer Name Role Phone Roger Alexandra MD Primary Care Provider [phone] Reason for Visit * Reason Comments Dosage Adjustment Via Phone (anticoag Cl inic) Encounter Details Date Type Department Care Team Description 11/06/2021 Anticoagulation Pharmacy Call Center [address] [facility] [place] [address] Telepharmacy, [facility] [address] [facility] [address] Anticoagulation management encounter* Allergies Active Allergy Reactions Severity Noted Date Comments Aspirin Unknown 12/12/2007 von Willebrand's disease Salicylates 03/01/2000 von Willebrand's disease documented as of this encounter (statuses as of 11/06/2021) Medications Medication Sig Dispensed Refills Start Date [...] 0 04/23/2021 Active Vitamin D3 1.25 MG (72583 UT) Oral CapsuleIndications:V itamin D deficiency Take [...] Severe. 90 Tablet 0 11/04/2021 Active Nystatin 558769 UNIT/GM External Powder (Nyamyc) apply to affected area twice a day 15 g 1 11/04/2021 Active documented as of this encounter (statuses as of 11/06/2021) Active Problems Problem Noted Date Chronic hypoxemic [...] as of this encounter (statuses as of 11/06/2021) Resolved Problems Problem Noted Date Resolved Date [...] as of this encounter (statuses as of 11/06/2021) Immunizations Name Administration Dates Next Due H1N1 [...] of this encounter Progress Notes * Piedad Craft RPh - 11/06/2021 10:38 AM EST Images from the original note were not included. Medication Therapy Disease Management - Anticoagulation Patient: Kimberly Kendall : 1960 Contacts Type Contact Phone 11/06/2021 10:59 AM EST Phone (Outgoing) Kimberly Kendall (Self) [phone] (M) Current Warfarin Dose As of 11/06/2021 Warfarin maintenance plan: 7.5 mg (5 mg x 1 and 2.5 mg x 1) every e, Wed, Sat; 10 mg (5 mg x 2) all other days Patient-Reported Symptoms: Patient Findings Positives: Change in health (Stomach issues earlier in the week), Missed doses (Patient thinks she missed a dose this week. Pt also reports dose as 10mg MF; 7.5mg AOD) Negatives: Signs/symptoms of thrombosis, Signs/symptoms of bleeding, Change in alcohol use, Change in activity, Upcoming invasive procedure, Extra doses, Change in medications, Change in diet/appetite, Bruising Comments: Will not increase weekly dose due to one confirmed missed dose and possibly more due to extremely low INR level. Will bolus x 2 and re-check in 1 week. INR Result As of 11/06/2021 INR goal: 2.0-3.0 INR used for dosin.01 (11/06/2021) Warfarin Plan As of 11/06/2021 Full warfarin instructions: 11/06: 15 mg; 11/07: 15 mg; Otherwise 10 mg every Mon, Fri; 7.5 mg all other days Next INR check: 11/13/2021 Additional Dosing Information: Description GML Repeat PT/INR in 1 week(s) Weekly dose: not changed as patient reports taking Piedad Craft RPh Clinical Pharmacist 11/06/2021, 10:38 AM documented in this encounter Plan of Treatment Upcoming Encounters Date Type Specialty Care Team Description 11/10/2021 Telemedicine Psychiatry Hugo Alcantara MD [address] [place] [address] 11/10/2021 Home Visit Family Medicine Fawn Godfrey, Community Health Pool Coordinator [address] [place] [address] 11/11/2021 Office Visit Family Medicine Roger Alexandra MD [address] [place] [address] 11/13/2021 [facility] [address] [place] [address] 07/24/2022 Office Visit Pulmonary Jesus Bonilla MD [address] [facility] [place] [id number] Scheduled Procedures Name Priority Associated Diagnoses Date/Ti [...] Documents on File Type Date Recorded Patient Summer Sessions Director Expl 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 Advanced Directive 11/02/2011 12:00 AM Care Teams Television Writer Relationship Specialty Start Date End Date Roger Alexandra MD 132 [facility] [place] [address] PCP - General Family Medicine 12/29/19 documented as of this encounter
--- OUTSIDE RECORDS SUMMARY | 2023-07-25 04:50 | External Medical Summary | Summary of Care ---
Author Name Unknown Organization [place] [address] Care Team Providers Care Jewelsmith Name Role Phone Roger Alexandra MD Primary Care Provider [phone] Reason for Visit * Reason Onset Date Comments Medication Refill 11/03/2021 Encounter Details Date Type Department Care Team Description 11/03/2021 Plaster Whittler Telephone Family Practice [facility] [address] [place] [address] Roger Alexandra MD 132 [facility] [place] [address] Medication Refill Allergies Active Allergy Reactions Severity [...] 0 04/23/2021 Active Vitamin D3 1.25 MG (53790 UT) Oral CapsuleIndications :Vitamin D deficiency Take [...] Moderate or Pain, Severe. 90 Tablet 0 10/09/2021 Active Nystatin 297703 UNIT/GM External Powder (Nystop) 1 harriet, Powder, Topical twice daily, 1 EA, 0 Refill(s), Indication: Candidiasis of Skin, Route to [facility]acy Electronically, [facility] - [address], [address], 10/02/20 10:43:00 EST, Height/Length Dosing, cm, 116.3, 10/02/20 10:43:00 EST, Weight Dosing, kg 15 g 1 11/03/2021 Active Nystatin 300885 UNIT/GM External Powder (Nystop) 1 harriet, Powder, Topical twice daily, 1 EA, 0 Refill(s), Indication: Candidiasis of Skin, Route to Pharmacy Electronically, [facility] - [address], [address], 10/02/20 10:43:00 EST, Height/Length Dosing, cm, 116.3, 10/02/20 10:43:00 EST, Weight Dosing, kg 15 g 1 03/27/2021 Discontinue d(Refill) documented as of this encounter [...] Telephone Encounter - Matt Mathew DO - 11/03/2021 11:48 AM EST Signed Prescriptions: Disp Refills Nystatin 051724 UNIT/GM External Powder (N*15 g 1 Si harriet, Powder, Topical twice daily, 1 EA, 0 Refill(s), Indication: Candidiasis of Skin, Route to Pharmacy Electronically, [facility] [address], [address], 10/02/20 10:43:00 EST, Height/Length Dosing, cm, 116.3, 10/02/20 10:43:00 EST, Weight Dosing, k g Authorizing Provider: MATT MATHEW * Telephone Encounter - Cordelia Burns RN - 11/03/2021 10:24 AM EST Pt requesting refill on medication. documented in this encounter Plan of Treatment Upcoming Encounters Date Type Specialty Care Team Description 11/06/2021 Laboratory Laboratory Processing [facility] Mobile Home Draw [address] [place] [address] 11/06/2021 [facility] [address] [place] [address] 11/10/2021 Telemedicine Psychiatry Hugo Alcantara MD [address] [place] [address] 11/10/2021 Home Visit Family Medicine Fawn Godfrey, Community Health Fisheries Diver [address] [place] [address] 11/11/2021 Office Visit Family Medicine [facility] [address] 07/24/2022 Office Visit Pulmonary Jesus Bonilla MD [address] [place] [facility] [place] [address] Scheduled Procedures Name Priority Associated Diagnoses Date/Ti me COLONOSCOPY FLEXIBLE PROXIMAL DIAGNOSTIC Recall History of colon polyps Health Maintenance Due Date Last Done Comments COVID-19 Vaccine (1) 1965 Zoster Vaccines (1 of 2) 2010 *DEPRESSION SCREENING,ANNUAL FOR PTS 12 AND OVER 04/11/2015 BREAST CANCER SCREENING DISCUSSION YEARLY AGES 40-75 [...] Documents on File Type Date Recorded Patient American History Teacher Expl 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 Advanced Directive 11/02/2011 12:00 AM Care Teams Jewelsmith Relationship Specialty Start Date End Date Roger Alexandra MD 132 [facility] [place] [address] PCP - General Family Medicine 12/29/19 documented as of this encounter
--- OUTSIDE RECORDS SUMMARY | 2023-07-25 04:50 | External Medical Summary | Summary of Care ---
Author Name Unknown Organization [place] [address] Care Team Providers Care Seed Sorter Name Role Phone Jeevan Mclean MD Primary Care Provider [phone] Reason for Visit * Reason Onset Date Comments Medication Refill 11/03/2021 Encounter Details Date Type Department Care Team Description 11/03/2021 Refill Family Practice [facility] [address] [place] [address] Jeevan Mclean MD 132 [facility] [place] [address] Chronic bilateral low back pain without sciatica [...] 0 04/23/2021 Active Vitamin D3 1.25 MG (91731 UT) Oral CapsuleIndications :Vitamin D deficiency Take [...] Pain, Severe. 90 Tablet 0 11/04/2021 Active traMADol HCl 100 MG Oral TabletIndications: Chronic bilateral low back pain without sciatica Take 100 mg by mouth every 8 hours as needed for Pain, Moderate or Pain, Severe. 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 Authorizing Provider: JEEVAN MCLEAN * Telephone Encounter - Yuliet Purvis [facility] - 11/04/2021 7:56 AM EST Pending Prescriptions: Disp Refills traMADol HCl 100 MG Oral Tablet 90 Tab*0 Sig: Take 100 mg by mouth every 8 hours as needed for Pain, Moderate or Pain, Severe. * Telephone Encounter - Yuliet Purvis [facility] - 11/04/2021 7:55 AM EST I have reviewed the patients controlled substance dispensing history in the Prescription Drug Monitoring Program in compliance with the [facility] regulations before prescribing a controlled substance. PDMP checked on 11/04/2021. Pending Prescriptions: Disp Refills traMADol HCl 100 MG Oral Tablet 90 Tab*0 Sig: Take 100 mg by mouth every 8 hours as needed for Pain, Moderate or Pain, Severe. Last Office/Telemedicine Visit: 06/12/2021 Next Office Visit: 11/11/2021 Scheduled Provider(s): Jeevan Mclean MD Date medication was last filled: 10/13 Date medication is due for refill: 11/11 Pharmacy: [facility] [place] [address] Is this request for a controlled substance?Yes [...] Please approve if appropriate. Thank you, Yuliet Purvis, PharmD. Clinical Pharmacist Pharmacy Refill Call Center 11/04/2021, 7:56 AM * Telephone Encounter - Jacqui Sharma [facility] - 11/03/2021 11:07 AM EST Pending Prescriptions: Disp Refills traMADol HCl 100 MG Oral Tablet 90 Tab*0 Sig: Take 100 mg by mouth every 8 hours as needed for Pain, Moderate or Pain, Severe. Last Office/Telemedicine Visit: 06/12/2021 Next Office Visit: 11/11/2021 Scheduled Provider(s): Jeevan Mclean MD If no future appointments scheduled, and last appointment is greater than a year ago, please schedule patient for a follow-up appointment Last date the medication was ordered: [id number] Pharmacy: [facility] [place] [address] Is this request for a controlled substance?Yes [...] Lab Results Component Value Date/Time CREAT 0.9 06/02/2021 06:00 AM CREAT 0.7 10/17/2020 03:40 PM POTASSIUM 4.7 06/02/2021 06:00 AM POTASSIUM 4.6 10/17/2020 03:40 PM TSH 1.68 05/01/2021 10:11 AM TSH 0.66 12/29/2019 10:22 AM LDLCALC 99 09/25/2015 12:00 AM LDLCALC 123 05/01/2011 11:39 AM LDLDIRECT 138 (H) 02/14/2015 09:27 AM ALT 6 (L) 12/29/2019 10:22 AM HGBA1C 5.7 04/19/2014 12:08 PM documented in this encounter Plan of Treatment Upcoming Encounters Date Type Specialty Care Team Description 11/06/2021 Laboratory Laboratory Processing [facility] Mobile Home Draw [address] [place] [address] 11/06/2021 [facility] [address] [place] [address] 11/10/2021 Telemedicine Psychiatry Hugo Aclantara MD [address] [place] [address] 11/10/2021 Home Visit Family Medicine Fawn Godfrey, Community Health Content Development Manager [address] [place] [address] 11/11/2021 Office Visit Family Medicine Jeevan Mclean MD [address] [place] [address] 07/24/2022 Office Visit Pulmonary Jesus Bonilla MD [...] Documents on File Type Date Recorded 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
--- OUTSIDE RECORDS SUMMARY | 2023-07-25 04:50 | External Medical Summary | Summary of Care ---
Author Name Unknown Organization [place] [address] Care Team Providers Care Rail Car Repairer Name Role Phone Roger Alexandra MD Primary Care Provider [phone] Reason for Visit * Reason Onset Date Comments Medication Refill 11/03/2021 Encounter Details Date Type Department Care Team Description 11/03/2021 Refill Psychiatry, [facility] [address] [place] [address] Hugo Alcantara MD [address] [place] [address] Allergies Active Allergy Reactions Severity Noted Date [...] 0 04/23/2021 Active Vitamin D3 1.25 MG (50758 UT) Oral CapsuleIndications:V itamin D deficiency Take [...] 60mg daily 30 Capsule 2 10/01/2021 Active documented as of this encounter (statuses [...] Per Obesity Taxonomy Depression with anxiety 03/05/20 EXT ASTHMA W-O STAT ASTH 010 Tobacco [...] Telephone Encounter - Jacqui Sharma CPhT - 11/03/2021 11:05 AM EST Patient is out of medication Asking if refill can be ordered today Pending Prescriptions: Disp Refills LORazepam 0.5 MG Oral Tablet (Ativan) 90 Tab*1 Sig: Take 1 Tablet by mouth 3 times a day as needed for Anxiety. Last Office/Telemedicine Visit: 09/29/2021 Next Office Visit: 11/10/2021 Scheduled Provider(s): Hugo Alcantara MD If no future appointments scheduled, and last appointment is greater than a year ago, please schedule patient for a follow-up appointment Last date the medication was ordered: [id number] [facility] Is this request for a controlled [...] found in Results Review. Patient Phone Numbers [email or web address] [phone] Labs: Lab Results Component Value Date/Time CREAT [...] Date Type Specialty Care Team Description 11/06/2021 Anticoagulation Pharmacy Telepharmacy, [facility] [address] [facility] [place] [address] 11/10/2021 Telemedicine Psychiatry Hugo Alcantara MD [address] [place] [address] 11/10/2021 Home Visit Family Medicine Fawn Godfrey, Community Health Lactation Nurse [address] [place] [address] 11/11/2021 Office Visit Family Medicine Roger Alexandra MD 132 [facility] [place] [address] 07/24/2022 Office Visit Pulmonary Jesus Bonilla MD [address] [facility] [address] Scheduled Procedures Name Priority Associated Diagnoses [...] Documents on File Type Date Recorded Patient Contact Lens Cutter Expl 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 Directive 11/02/2011 12:00 AM Care Teams Rail Car Repairer Relationship Specialty Start Date End Date Roger Alexandra MD [address] [place] [address] [place] [address] PCP - General Family Medicine 12/29/19 documented as of this encounter
--- OUTSIDE RECORDS SUMMARY | 2023-07-25 04:50 | External Medical Summary | Summary of Care ---
Author Name Unknown Organization [place] [address] Care Team Providers Care Oil Speculator Name Role Phone Jeevan Mclean MD Primary Care Provider [phone] [phone] Reason for Visit * Reason Comments eRx-Medication Refill Encounter Details Date Type Department Care Team Description 11/03/2021 Refill Family Practice [facility] [address] [place] [id number] Jeevan Mclean MD [address] [place] [place] [address] Allergies Active Allergy Reactions Severity Noted Date [...] Absorb Underwear 32 Each 2 03/18/2021 Active guaiFENesin-Codei ne 100-10 MG/5ML Oral Syrup (Robitussin AC) Take 5 mL by mouth every 4 hours as needed for Cough. 120 mL 0 04/23/2021 Active Vitamin D3 1.25 MG (26728 UT) Oral CapsuleIndication s:Vitamin D deficiency Take [...] 10/01/2021 Active traMADol HCl 100 MG Oral TabletIndications :Chronic bilateral low back pain without sciatica Take 100 mg by mouth every 8 hours as needed for Pain, Moderate or Pain, Severe. 90 Tablet 0 11/04/2021 Active Nystatin 920266 UNIT/GM External Powder (Nyamyc) apply to affected area twice a day 15 g 1 11/04/2021 Active Nystatin 877715 UNIT/GM External Powder (Nystop) 1 harriet, Powder, Topical twice daily, 1 EA, 0 Refill(s), Indication: Candidiasis of Skin, Route to Pharmacy Electronically, [facility] - [address], [address], 10/02/20 10:43:00 EST, Height/Length Dosing, cm, 116.3, 10/02/20 10:43:00 EST, Weight Dosing, kg 15 g 1 11/03/2021 11/04/20 21 Discontinued documented as of this encounter (statuses [...] Encounter - Jeevan Mclean MD - 11/04/2021 11:28 AM EST Signed Prescriptions: Disp Refills Nystatin 738654 UNIT/GM External Powder (N*15 g 1 Sig: apply to affected area twice a day Authorizing Provider: JEEVAN MCLEAN * Telephone Encounter - Shaye Anderson [facility] - 11/04/2021 10:04 AM EST Pending Prescriptions: Disp Refills Nystatin 158372 UNIT/GM External Powder (*15 g 1 Sig: apply to affected area twice a day * Telephone Encounter - Shaye Anderson RP - 11/04/2021 10:03 AM EST Pending Prescriptions: Disp Refills Nystatin 279141 UNIT/GM External Powder (*15 g 1 Sig: apply to affected area twice a day Last Office/Telemedicine Visit: 06/12/2021 Next Office Visit: 11/11/2021 Scheduled Provider(s): Jeeavn Mclean MD If no future appointments scheduled, and last appointment is greater than a year ago, please schedule patient for a follow-up appointment Last date the medication was ordered: 11/04/21 Pharmacy: [id number] Is this request for a controlled [...] Care Team Description 11/06/2021 Laboratory Laboratory Processing [facility], [facility] Mobile Home Draw [address] [place] [address] 11/06/2021 [facility] [address] [place] [address] 11/10/2021 Telemedicine Psychiatry Hugo Alcantara MD [address] [place] [address] 11/10/2021 Home Visit Family Medicine Fawn Godfrey, Community Health Technical Communication Teacher [address] [place] [address] 11/11/2021 Office Visit Family Medicine Jeevan Mclean MD [address] [place] [address] 07/24/2022 Office Visit Pulmonary Jesus Bonilla MD [address] [place], [place] [phone] Scheduled Procedures Name Priority Associated Diagnoses Date/Ti [...] Documents on File Type Date Recorded Patient Count Room Clerk Expl 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 Advanced Directive 11/02/2011 12:00 AM Care Teams Oil Speculator Relationship Specialty Start Date End Date Jeevan Mclean MD [address] [place] [address] [place] [address] PCP - General Family Medicine 12/29/19 documented as of this encounter
--- OUTSIDE RECORDS SUMMARY | 2023-07-25 04:50 | External Medical Summary | Summary of Care ---
Author Name Unknown Organization [place] [address] Care Team Providers Care Flexible Shaft Winder Name Role Phone Roger Alexandra MD Primary Care Provider [phone] Reason for Visit * Reason Onset Date Comments Advice 10/29/2021 Missed Mobile La b/caregivers Encounter Details Date Type Department Care Team Description 10/29/2021 Calculating Machine Mechanic Telephone Family Practice [facility] [address] [address] Cordelia Burns, RN 132 [facility] [place] [address] Advice (Missed Mobile Lab/caregivers) Allergies Active Allergy Reactions Severity Noted Date [...] 0 04/23/2021 Active Vitamin D3 1.25 MG (36378 UT) Oral CapsuleIndications :Vitamin D deficiency Take [...] Severe. 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 * Telephone Encounter - Cordelia Burns RN - 11/04/2021 8:05 AM EST CM returned call to Sandy/SAAD NORMAN. Left message for return call to follow up from yesterday. Pt on CM voice mail numerous times from yesterday as well. * Telephone Encounter - Cordelia Burns RN - 11/03/2021 11:51 AM EST [facility] [phone] Licensed Land Surveyor: Services Access and Management [facility] [phone] Sandy [phone] Spoke with Sandy, reports that family is to be the primary caregiver and the agency is secondary. She reports that the family is available to assist and son visits every afternoon. Concerns for patient's safety and living alone. Sandy reports that grand daughter is involved in patient's care at home. They are aware that caregiver services are not currently available. She will reach out to patient's granddaughter regarding concerns. Advised of No show appts with Mobile lab and no show for PCP in September and appt rescheduled for next week at 6PM for family to transport. EMERSON updated * Telephone Encounter - Cordelia Burns RN - 11/03/2021 11:46 AM EST Spoke with EMERSON, she recently spoke with Juan Pablo from [facility]. He still does not have a caregiver in the area to services Kimberly. * Telephone Encounter - Cordelia Burns RN - 11/03/2021 11:36 AM EST Spoke with Nia at [facility]. Pt is part of the waiver program and facilitated by [employer]. [phone]. Pt should be assigned a central service supply distributor. * Telephone Encounter - Cordelia Burns RN - 11/03/2021 11:26 AM EST received call back from Nia at [facility]. she left a message that patient has services through the Waiver program ([employer]). CM called back to Nia to discuss further, had to leave a message. * Telephone Encounter - Cordelia Burns RN - 11/03/2021 10:22 AM EST CM made referral to [facility] regarding patient reporting no assistance at home. Not bathing. Sheets not changed in months, etc. Pt does not get up to answer the door and is on oxygen. Pt did have caregiver services a few months ago, however, no caregivers available last time I spokewith Juan Pablo, several weeks ago. * Telephone Encounter - Cordelia Burns RN - 10/29/2021 12:39 PM EST Kim, Pt is concerned that her labs were not drawn yesterday. She has mobile lab. She is [place] and has difficulty getting to the door to answer it. EMERSON is currently on home visit with patient. I advised patient when the call the day before to remind them of her situation. I did add a note to the [employer]. Any thing else to help with this situation? documented in this encounter Plan of Treatment Upcoming Encounters Date Type Specialty Care Team Description 11/06/2021 Laboratory Laboratory Processing [facility] Mobile Home Draw [address] [place] [address] 11/06/2021 [facility] [address] [place] [address] 11/10/2021 Telemedicine Psychiatry Hugo Alcantara MD [address] [place] [address] 11/10/2021 Home Visit Family Medicine Fawn Godfrey, Community Health Crusher Dry Ground Mica [address] [place] [address] 11/11/2021 Office Visit Family Medicine Roger Alexandra MD 132 [facility] [address] 07/24/2022 Office Visit Pulmonary Jesus Bonilla MD [address] [place] [phone] Scheduled Procedures Name Priority Associated Diagnoses Date/Ti [...] Documents on File Type Date Recorded 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
--- OUTSIDE RECORDS SUMMARY | 2023-07-25 04:50 | External Medical Summary | Summary of Care ---
Author Name Unknown Organization [place] [address] Care Team Providers Care Physical Therapy Attendant Name Role Phone Roger Alexandra MD Primary Care Provider [phone] Reason for Visit * Reason Onset Date Comments case management 11/04/2021 Caregiver concer ns Encounter Details Date Type Department Care Team Description 11/04/2021 School Age Program Associate Telephone Family Practice [facility] 132 [facility] [place] [address] Cordelia Burns, RN 132 [facility] [place] [address] case management (Caregiver concerns) Allergies Active Allergy [...] 0 04/23/2021 Active Vitamin D3 1.25 MG (66606 UT) Oral CapsuleIndications: Vitamin D deficiency Take [...] daily 30 Capsule 2 10/01/2021 Active Nystatin 001130 UNIT/GM External Powder (Nystop) 1 harriet, Powder, [...] She has not had a caregiver through [employer] since August when her caregiver abruptly quit. Advised patient that I made the phone call to Yunior Delgado [facility] regarding concerns. Advised patient that she is [...] Care Team Description 11/06/2021 Laboratory Laboratory Processing [facility], [facility] Mobile Home Draw [address] [place] [address] 11/06/2021 [facility] [address] [place] [address] 11/10/2021 Telemedicine Psychiatry Hugo Alcantara MD [address] [place] [address] 11/10/2021 Home Visit Family Medicine Fawn Godfrey, Community Health Dewatering Filtering Supervisor [address] [place] [address] 11/11/2021 Office Visit Family Medicine Roger Alexandra MD [address] [place] [address] 07/24/2022 Office Visit Pulmonary Jesus Bonilla MD [address] [facility] [place] [phone] Scheduled Procedures Name Priority Associated Diagnoses Date/Ti me COLONOSCOPY FLEXIBLE PROXIMAL DIAGNOSTIC Recall History of colon polyps Health Maintenance Due Date Last Done Comments COVID-19 Vaccine (1) 1965 Depression Screening, Annual for Pts 12 and Over 1972 Zoster Vaccines (1 of 2) 2010 BREAST [...] Documents on File Type Date Recorded Patient Obstetrics Technician Expl 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 Advanced Directive 11/02/2011 12:00 AM Care Teams Physical Therapy Attendant Relationship Specialty Start Date End Date Roger Alexandra MD [address] [place] [address] PCP - General Family Medicine 12/29/19 documented as of this encounter
--- OUTSIDE RECORDS SUMMARY | 2023-07-25 04:50 | External Medical Summary | Summary of Care ---
Author Name Unknown Organization [place] [address] Care Team Providers Care Dermatology Teacher Name Role Phone Roger Alexandra MD Primary Care Provider [phone] Reason for Visit * Reason Onset Date Comments Appointment 11/05/2021 Encounter Details Date Type Department Care Team Description 11/05/2021 Telephone Psychiatry, [facility] [address] [place] [address] Hugo Alcantara MD [address] [facility] [place], [place] [phone] Appointment Allergies Active Allergy Reactions Severity Noted Date Comments Aspirin Unknown 12/12/2007 von Willebrand's disease Salicylates 03/01/2000 von Willebrand's disease documented as of this encounter (statuses as of 11/05/2021) Medications Medication Sig Dispensed Refills Start Date [...] 0 04/23/2021 Active Vitamin D3 1.25 MG (75549 UT) Oral CapsuleIndications:V itamin D deficiency Take [...] Severe. 90 Tablet 0 11/04/2021 Active Nystatin 576910 UNIT/GM External Powder (Nyamyc) apply to affected area twice a day 15 g 1 11/04/2021 Active documented as of this encounter (statuses as of 11/05/2021) Active Problems Problem Noted Date Chronic hypoxemic [...] as of this encounter (statuses as of 11/05/2021) Resolved Problems Problem Noted Date Resolved Date [...] as of this encounter (statuses as of 11/05/2021) Immunizations Name Administration Dates Next Due H1N1 [...] * Telephone Encounter - RUFINA Holder - 11/05/2021 9:43 AM EST Called patient to verify date/time/location, demographics and insurance for upcoming appointment. If call is returned and patient needs to change demographics or insurance please transfer to [phone]. If patient has scheduling concerns please transfer to [phone]. documented in this encounter Plan of Treatment Upcoming Encounters Date Type Specialty Care Team Description 11/06/2021 Laboratory Laboratory Processing [facility], [facility] Mobile Home Draw [address] [place] [address] 11/06/2021 [facility] [address] [place] [address] 11/10/2021 Telemedicine Psychiatry Hugo Alcantara MD [address] [place] [address] 11/10/2021 Home Visit Family Medicine Fawn Godfrey, Community Health Engagement Mgr [address] [place] [address] 11/11/2021 Office Visit Family Medicine Roger Alexandra MD [address] [place] [address] 07/24/2022 Office Visit Pulmonary Jesus Bonilla MD [...] on File Type Date Recorded Patient Physical Design Engineer Expl 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 Advanced Directive 11/02/2011 12:00 AM Care Teams Dermatology Teacher Relationship Specialty Start Date End Date Roger Alexandra MD [address] [place] [address] PCP - [facility] 12/29/19 documented as of this encounter
--- OUTSIDE RECORDS SUMMARY | 2023-07-25 04:50 | External Medical Summary | Summary of Care ---
Author Name Unknown [place] [address] Care Team Providers Care Etcher Electrolytic Name Role Phone Roger Alexandra MD Primary Care Provider [phone] Reason for Visit * Reason Onset Date Comments [facility] Care Coordination Services 11/10/2021 Encounter Details Date Type Department Care Team Description 11/10/2021 Telephone Care Coordination [address] [place] [address] Fawn Godfrey, Community Health Secondary Special Education Teacher [address] [place] [address] [facility] Care Coordination Services Allergies Active Allergy Reactions Severity Noted Date [...] 0 04/23/2021 Active Vitamin D3 1.25 MG (38736 UT) Oral CapsuleIndications:V itamin D deficiency Take [...] Severe. 90 Tablet 0 11/04/2021 Active Nystatin 716778 UNIT/GM External Powder (Nyamyc) apply to affected [...] Telemedicine Psychiatry Hugo Alcantara MD [address] [place] [address] Arrived 11/10/2021 Home Visit Family Medicine Fawn Godfrey, Community Health Secondary Special Education Teacher [address] [place] [address] 11/11/2021 Office Visit Family Medicine Roger Alexandra MD [address] [place] [address] 11/13/2021 Laboratory Laboratory Processing [facility], [facility] Mobile Home Draw [address] [place] [address] 11/13/2021 [facility] [address] [address] [place] [address] 07/24/2022 Office Visit Pulmonary Jesus Bonilla MD [address] [place] [address] Scheduled Procedures Name Priority Associated [...] Documents on File Type Date Recorded Patient Light Industrial Expl 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 Advanced Directive 11/02/2011 12:00 AM Care Teams Etcher Electrolytic Relationship Specialty Start Date End Date Roger Alexandra MD 132 [facility] [place] [address] PCP - General Family Medicine 12/29/19 documented as of this encounter
--- OUTSIDE RECORDS SUMMARY | 2023-07-25 04:51 | External Medical Summary | Summary of Care ---
Author Name Unknown Organization [place] [address] Care Team Providers Care Diver Helper Name Role Phone Roger Alexandra MD Primary Care Provider [phone] Reason for Visit * Reason Onset Date Comments [facility] Care Coordination Services 10/22/2021 Encounter Details Date Type Department Care Team Description 10/22/2021 Telephone Care Coordination [address] [place] [address] Fawn Godfrey, Community Health Roll Forming Machine Operator [address] [place] [address] [facility] Care Coordination Services Allergies Active Allergy Reactions Severity Noted Date Comments Aspirin Unknown 12/12/2007 von Willebrand's disease Salicylates 03/01/2000 von Willebrand's disease documented as of this encounter (statuses as of 10/22/2021) Medications Medication Sig Dispensed Refills Start Date [...] Absorb Underwear 32 Each 2 03/18/2021 Active Nystatin 765108 UNIT/GM External Powder (Nystop) 1 harriet, Powder, Topical twice daily, 1 EA, 0 Refill(s), Indication: Candidiasis of Skin, Route to Pharmacy Electronically, [facility] - [address], [address], 10/02/20 10:43:00 EST, Height/Length Dosing, cm, 116.3, 10/02/20 10:43:00 EST, Weight Dosing, kg 15 g 1 03/27/2021 Active guaiFENesin-Codeine 100-10 MG/5ML Oral Syrup (Robitussin AC) Take 5 mL by mouth every 4 hours as needed for Cough. 120 mL 0 04/23/2021 Active Vitamin D3 1.25 MG (94227 UT) Oral CapsuleIndications: Vitamin D deficiency Take [...] 1 Puff by mouth daily. 30 Each 06/12/2021 Active FLUoxetine HCl 40 MG Oral [...] 10/01/2021 Active traMADol HCl 100 MG Oral TabletIndications:C hronic bilateral low back pain without sciatica Take 100 mg by mouth every 8 hours as needed for Pain, Moderate or Pain, Severe. 90 Tablet 0 10/09/2021 Active documented as of this encounter (statuses as of 10/22/2021) Active Problems Problem Noted Date Chronic hypoxemic [...] as of this encounter (statuses as of 10/22/2021) Resolved Problems Problem Noted Date Resolved Date [...] as of this encounter (statuses as of 10/22/2021) Immunizations Name Administration Dates Next Due H1N1 [...] Encounters Date Type Specialty Care Team Description 10/28/2021 Laboratory Laboratory Processing [facility], [facility] Mobile Home Draw [address] [place] [address] 10/29/2021 [facility] [address] [place] [address] 10/29/2021 Home Visit Family Medicine Fawn Godfrey, Community Health Roll Forming Machine Operator [address] [place] [address] 11/10/2021 Telemedicine Psychiatry Hugo Alcantara MD [address] [place] [address] 11/11/2021 Office Visit Family Medicine Roger Alexandra MD 132 [facility] [place] [address] 07/24/2022 Office Visit Pulmonary Jesus Bonilla MD [address] [place] [address] Scheduled Procedures Name Priority Associated Diagnoses Date/Ti me COLONOSCOPY FLEXIBLE PROXIMAL DIAGNOSTIC Recall History of colon polyps Health Maintenance Due Date Last Done Comments COVID-19 Vaccine (1) 1972 Zoster Vaccines (1 of 2) 2010 *DEPRESSION [...] Documents on File Type Date Recorded Patient Litigation Specialist Expl 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 Advanced Directive 11/02/2011 12:00 AM Care Teams Diver Helper Relationship Specialty Start Date End Date Roger Alexandra MD 132 [facility] [place] [address] PCP - General Family Medicine 12/29/19 documented as of this encounter
--- OUTSIDE RECORDS SUMMARY | 2023-07-25 04:51 | External Medical Summary | Summary of Care ---
Author Name Unknown Organization [place] [address] Care Team Providers Care Pharmacy Care Coordinator Name Role Phone Roger Alexandra MD Primary Care Provider [phone] [phone] Reason for Visit * Reason Onset Date Comments Advice 10/29/2021 Missed Mobile La b/caregivers Encounter Details Date Type Department Care Team Description 10/29/2021 Continuous Improvement Director Telephone Family Practice [facility] [address] [place] [address] Cordelia Burns, RN 132 [facility] [place] [address] Advice (Missed Mobile Lab/caregivers) Allergies Active Allergy Reactions Severity Noted Date Comments Aspirin Unknown 12/12/2007 von Willebrand's disease Salicylates 03/01/2000 von Willebrand's disease documented as of this encounter (statuses as of 11/03/2021) Medications Medication Sig Dispensed Refills Start Date [...] 0 04/23/2021 Active Vitamin D3 1.25 MG (11415 UT) Oral CapsuleIndications :Vitamin D deficiency Take [...] Severe. 90 Tablet 0 10/09/2021 Active Nystatin 411186 UNIT/GM External Powder (Nystop) 1 harriet, Powder, Topical twice daily, 1 EA, 0 Refill(s), Indication: Candidiasis of Skin, Route to Pharmacy Electronically, [facility] - [address], [address], 10/02/20 10:43:00 EST, Height/Length Dosing, cm, 116.3, 10/02/20 10:43:00 EST, Weight Dosing, kg 15 g 1 03/27/2021 1 Discontinue d(Refill) documented as of this encounter (statuses as of 11/03/2021) Active Problems Problem Noted Date Chronic hypoxemic [...] as of this encounter (statuses as of 11/03/2021) Resolved Problems Problem Noted Date Resolved Date [...] as of this encounter (statuses as of 11/03/2021) Immunizations Name Administration Dates Next Due H1N1 [...] Burns RN - 11/03/2021 11:51 AM EST [facility] [phone] Customer Consulting Manager: Services Access and Management [facility] [phone] Sandy [phone] Spoke with Sandy, reports that family is [...] she recently spoke with Juan Pablo from [facility]. He still does not have a caregiver in the area to services Kimberly. * Telephone Encounter - Cordelia Burns RN - 11/03/2021 11:36 AM EST Spoke with Nia at [facility]. Pt is part of the waiver program and facilitated by [employer] and [employer]. [phone]. Pt should be assigned a general service officer. * Telephone Encounter - Cordelia Burns RN - 11/03/2021 11:26 AM EST received call back from Nia at [facility]. she left a message that patient has services through the Waiver program ([employer] and [employer]). CM called back to Nia to discuss further, had to leave a message. * Telephone Encounter - Cordelia Burns RN - 11/03/2021 10:22 AM EST CM made referral to [facility] regarding patient reporting no [...] Burns RN - 10/29/2021 12:39 PM EST Wilfrid Alvarez is concerned that her labs were not drawn yesterday. She has mobile lab. She is [place] and has difficulty getting to the door [...] Care Team Description 11/06/2021 Laboratory Laboratory Processing [facility] Mobile Home Draw [address] [place] [address] 11/06/2021 [facility] [address] [place] [address] 11/10/2021 Telemedicine Psychiatry Hugo Alcantara MD [address] [place] [address] 11/10/2021 Home Visit Family Medicine Fawn Godfrey, Community Health Straw Hat Brim Cutter Operator [address] [place] [address] 11/11/2021 Office Visit Family Medicine Roger Alexandra MD 132 [facility] [place] [address] 07/24/2022 Office Visit Pulmonary Jesus Bonilla MD [address] [place] [address] Scheduled Procedures Name Priority Associated [...] on File Type Date Recorded Patient Display And Banner Designer Expl 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 Advanced Directive 11/02/2011 12:00 AM Care Teams Pharmacy Care Coordinator Relationship Specialty Start Date End Date Roger Alexandra MD [address] [place] [address] [place] [address] PCP - General Family Medicine 12/29/19 documented as of this encounter
--- OUTSIDE RECORDS SUMMARY | 2023-07-25 04:51 | External Medical Summary ---
Author Name Unknown Address Unknown Organization [facility] [address] [place] [address] Laboratory Report Ordering Provider Test Date Status SUMAN STANFORD 10/31/2021 09:21:00 Final Observation Date Value Abnormality Reference (Units ) Status PT 10/31/2021 09:21:00 16.8 Above high normal 11 .5-14.6 (seconds) Final INR 10/31/2021 09:21:00 1.34 Above high normal 0. 84-1.14 Final Performing Location [facility] [place] [address] [place] [address]
--- OUTSIDE RECORDS SUMMARY | 2023-07-25 04:51 | External Medical Summary | Summary of Care ---
Author Name Unknown Organization [place] [address] Care Team Providers Care Aws Solution Architect Name Role Phone Roger Alexandra MD Primary Care Provider [phone] [phone] Reason for Visit * Reason Onset Date Comments Advice 10/29/2021 Missed Mobile La b Encounter Details Date Type Department Care Team Description 10/29/2021 Business Director Telephone Family Practice [facility] 132 [facility] [place] [address] Cordelia Burns, RN 132 [facility] [place] [address] Advice (Missed Mobile Lab) Allergies Active Allergy Reactions Severity Noted Date [...] Underwear 32 Each 2 03/18/2021 Active Nystatin 033126 UNIT/GM External Powder (Nystop) 1 harriet, Powder, [...] 0 04/23/2021 Active Vitamin D3 1.25 MG (16402 UT) Oral CapsuleIndications: Vitamin D deficiency Take [...] 10:22 AM EST CM made referral to [facility] regarding patient reporting [...] Burns RN - 10/29/2021 12:39 PM EST Kim Pt is concerned that her labs were not drawn yesterday. She has mobile lab. She is [place] and has difficulty getting to the door [...] Description 11/06/2021 Laboratory Laboratory [place] [facility] Mobile Home Draw [address] [place] [address] 11/06/2021 [facility] [address] [place] [address] 11/10/2021 Telemedicine Psychiatry Hugo Alcantara MD [address] [place] [address] 11/10/2021 Home Visit Family Medicine Fawn Godfrey, Community Health Mortgage Loan Originator [address] [place] [address] 11/11/2021 Office Visit Family Medicine Roger Alexandra MD 132 [facility] [place] [address] 07/24/2022 Office Visit Pulmonary Jesus Bonilla MD [address] [facility] [place] [address] Scheduled Procedures Name Priority Associated [...] Documents on File Type Date Recorded Patient Agricultural Extension Educator Expl 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 Advanced Directive 11/02/2011 12:00 AM Care Teams Aws Solution Architect Relationship Specialty Start Date End Date Roger Alexandra MD 132 [facility] [place] [address] PCP - General Family Medicine 12/29/19 documented as of this encounter
--- OUTSIDE RECORDS SUMMARY | 2023-07-25 04:51 | External Medical Summary | Summary of Care ---
Author Name Unknown Organization [place] [address] Care Team Providers Care Database Development Project Manager Name Role Phone Roger Alexandra MD Primary Care Provider [phone] Reason for Visit * Reason Onset Date Comments [facility] Care Coordination Services 11/03/2021 Encounter Details Date Type Department Care Team Description 11/03/2021 Telephone Care Coordination [address] [place] [address] Fawn Godfrey, Community Health Italian Lecturer [address] [place] [address] [facility] Care Coordination Services Allergies Active Allergy Reactions [...] 0 04/23/2021 Active Vitamin D3 1.25 MG (35164 UT) Oral CapsuleIndications: Vitamin D deficiency Take [...] Severe. 90 Tablet 0 10/09/2021 Active Nystatin 916636 UNIT/GM External Powder (Nystop) 1 harriet, Powder, Topical twice daily, 1 EA, 0 Refill(s), Indication: Candidiasis of Skin, Route to Pharmacy Electronically, [facility] - [address], [address], 10/02/20 10:43:00 EST, Height/Length Dosing, cm, 116.3, 10/02/20 10:43:00 EST, Weight Dosing, kg 15 g 1 11/03/2021 Active documented as of this encounter (statuses [...] Care Team Description 11/06/2021 Laboratory Laboratory Processing [facility] [place] Mobile Home Draw [address] [place] [address] 11/06/2021 [facility] [address] [place] [address] 11/10/2021 Telemedicine Psychiatry Hugo Alcantara MD [address] [place] [address] 11/10/2021 Home Visit Family Medicine Fawn Godfrey, Community Health Italian Lecturer [address] [place] [address] 11/11/2021 Office Visit Family Medicine Roger Alexandra MD 132 [facility] [place] [address] 07/24/2022 Office Visit Pulmonary Jesus Bonilla MD [...] Documents on File Type Date Recorded Patient Print Shop Assistant Expl 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 Advanced Directive 11/02/2011 12:00 AM Care Teams Database Development Project Manager Relationship Specialty Start Date End Date Roger Alexandra MD 132 [facility] [place] [address] PCP - General Family Medicine 12/29/19 documented as of this encounter
--- OUTSIDE RECORDS SUMMARY | 2023-07-25 04:51 | External Medical Summary | Summary of Care ---
Author Name Unknown Organization [facility] Address [place] [address] Care Team Providers Care Family Caseworker Name Role Phone Roger Alexandra MD Primary Care Provider [phone] [phone] Reason for Visit * Reason Comments Dosage Adjustment Via Phone (anticoag Cl inic) Encounter Details Date Type Department Care Team Description 10/31/2021 Anticoagulation Pharmacy Call Center [address] [facility] [place] [address] Telepharmacy, 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* Allergies Active Allergy Reactions Severity Noted Date Comments Aspirin Unknown 12/12/2007 von Willebrand's disease Salicylates 03/01/2000 von Willebrand's disease documented as of this encounter (statuses as of 10/30/2021) Medications Medication Sig Dispensed Refills Start Date [...] Underwear 32 Each 2 03/18/2021 Active Nystatin 744653 UNIT/GM External Powder (Nystop) 1 harriet, Powder, [...] 0 04/23/2021 Active Vitamin D3 1.25 MG (75822 UT) Oral CapsuleIndications: Vitamin D deficiency Take [...] as of this encounter (statuses as of 10/30/2021) Active Problems Problem Noted Date Chronic hypoxemic [...] as of this encounter (statuses as of 10/30/2021) Resolved Problems Problem Noted Date Resolved Date [...] as of this encounter (statuses as of 10/30/2021) Immunizations Name Administration Dates Next Due H1N1 [...] Progress Notes * Kim Mercado RPh - 10/30/2021 9:55 PM EST Pt marked as no show by [facility]. Pt is [place] and can't hear the door santacruz. Messaged Sharmaine Ray with [facility] and they will draw on 10/31. Rescheduling as same day call. Kim Mercado Rph, Pharm.D. Clinical Pharmacist Telepharmacy [phone] 10/30/2021,9:56 PM documented in this encounter Plan of Treatment Upcoming Encounters Date Type Specialty Care Team Description 10/31/2021 Anticoagulation Pharmacy Telepharmacy, [facility] [address] [place] [address] 11/10/2021 Telemedicine Psychiatry Hugo Alcantara MD [address] [place] [address] 11/10/2021 Home Visit Family Medicine Fawn Godfrey, Community Health Script Writer [address] [place] [address] 11/11/2021 Office Visit Family Medicine Roger [facility]andra MD 132 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
--- OUTSIDE RECORDS SUMMARY | 2023-07-25 04:51 | External Medical Summary | Summary of Care ---
Author Name Unknown Organization [place] [address] Care Team Providers Care Automation And Control Engineer Name Role Phone Roger Alexandra MD Primary Care Provider [phone] Reason for Visit * Reason Onset Date Comments Medication Refill 11/03/2021 Encounter Details Date Type Department Care Team Description 11/03/2021 Appellate Conferee Telephone Family Practice [facility] [address] [place] [address] Roger Alexandra MD 132 [facility] [place] [address] Medication Refill Allergies Active Allergy Reactions Severity [...] 0 04/23/2021 Active Vitamin D3 1.25 MG (64550 UT) Oral CapsuleIndications :Vitamin D deficiency Take [...] Severe. 90 Tablet 0 10/09/2021 Active Nystatin 614224 UNIT/GM External Powder (Nystop) 1 harriet, Powder, Topical twice daily, 1 EA, 0 Refill(s), Indication: Candidiasis of Skin, Route to Pharmacy Electronically, [facility] - [address], [address], 10/02/20 10:43:00 EST, Height/Length Dosing, cm, 116.3, 10/02/20 10:43:00 EST, Weight Dosing, kg 15 g 1 11/03/2021 Active Nystatin 213655 UNIT/GM External Powder (Nystop) 1 harriet, Powder, [...] AM EST Signed Prescriptions: Disp Refills Nystatin 653120 UNIT/GM External Powder (N*15 g 1 Si [...] Team Description 11/06/2021 Laboratory Laboratory Processing [facility], [facility] Mobile Home Draw [address] [place] [address] 11/06/2021 [facility] [address] [place] [address] 11/10/2021 Telemedicine Psychiatry Hugo Alcantara MD [address] [place] [address] 11/10/2021 Home Visit Family Medicine Fawn Godfrey, Community Health Health Records Technology Teacher [address] [place] [address] 11/11/2021 Office Visit Family Medicine Roger Alexandra MD 132 [facility] [address] 07/24/2022 Office Visit Pulmonary Jesus Bonilla MD [address] [place] [facility] [place] [address] Scheduled Procedures Name Priority Associated Diagnoses [...] Documents on File Type Date Recorded Patient Distribution District Supervisor Expl 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 Advanced Directive 11/02/2011 12:00 AM Care Teams Automation And Control Engineer Relationship Specialty Start Date End Date Roger Alexandra MD 132 [facility] [place] [address] PCP - General Family Medicine 12/29/19 documented as of this encounter
--- OUTSIDE RECORDS SUMMARY | 2023-07-25 04:51 | External Medical Summary | Summary of Care ---
Author Name Unknown Organization [place] [address] Care Team Providers Care Wheel Press Operator Name Role Phone Roger Alexandra MD Primary Care Provider [phone] [phone] Reason for Visit * Reason Onset Date Comments [facility] Care Coordination Services 11/03/2021 Encounter Details Date Type Department Care Team Description 11/03/2021 Telephone Care Coordination [address] [place] [address] Fawn Gofdrey, Community Health Senior Front End Engineer [address] [place] [address] [facility] Care Coordination Services Allergies Active [...] 0 04/23/2021 Active Vitamin D3 1.25 MG (50370 UT) Oral CapsuleIndications: Vitamin D deficiency Take [...] Severe. 90 Tablet 0 10/09/2021 Active Nystatin 213326 UNIT/GM External Powder (Nystop) 1 harriet, Powder, [...] encounter Miscellaneous Notes * Telephone Encounter - Fawn Godfrey [facility] Health Senior Front End Engineer - 11/03/2021 12:50 PM EST Patient called and stated that she received a call from her granddaughter and was told that someonecalled her and was reprimanding her about negative care Kimberly was receiving. Patient stated thatchad never said she had no help and had not bathed in a month. EMERSON reminded her of the home visit on 10-29-21 where she did state that and more about her lack of care from family and not being able to wash her bed linen in a while. Patient stated she never said that and was upset. She said now her grandchildren and angry and she will have a terrible Camilo. EMERSON stated that as long as she is getting the care that she now states and not what she told the EMERSNO on 10-29-21 everything should be fine. Patient states that her grand daughter comes in every other day for bathing and other help. She also stated her son lives 2 doors away and is there if she needs help. documented in this encounter Plan of Treatment Upcoming Encounters Date Type Specialty Care Team Description 11/06/[address] [facility] Mobile Home Draw [address] [facility] [place] [address] 11/06/2021 [facility] 58 60 [facility] [address] 11/10/2021 Telemedicine Psychiatry Hugo Alcantara MD [address] [place] [address] 11/10/2021 Home Visit Family Medicine Fawn Godfrey, Community Health Senior Front End Engineer [address] [place] [address] 11/11/2021 Office Visit Family Medicine Roger Alexandra MD 132 [facility] [place] [address] 07/24/2022 Office Visit Pulmonary Jesus Bonilla MD [address] [facility] [place] [address] Scheduled Procedures Name Priority Associated [...] Documents on File Type Date Recorded Patient Sandstone Inspector Repairer Expl 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 Advanced Directive 11/02/2011 12:00 AM Care Teams Wheel Press Operator Relationship Specialty Start Date End Date Roger Alexandra MD [address] [place] [address] [place] [address] PCP - General Family Medicine 12/29/19 documented as of this encounter
--- OUTSIDE RECORDS SUMMARY | 2023-07-25 04:51 | External Medical Summary | Summary of Care ---
Author Name Unknown Organization [facility] Address [place] [address] Care Team Providers Care Seasonal Sales Associate Name Role Phone Roger Alexandra MD Primary Care Provider [phone] [phone] Reason for Visit * Reason Comments Dosage Adjustment Via Phone (anticoag Cl inic) Encounter Details Date Type Department Care Team Description 10/31/2021 Anticoagulation Pharmacy Call Center 58[address]60 [facility] [place] [address] Telepharmacy, [facility] 58 60 [facility] [address] Anticoagulation management encounter* Allergies Active Allergy Reactions Severity Noted Date Comments Aspirin Unknown 12/12/2007 von Willebrand's disease Salicylates 03/01/2000 von Willebrand's disease documented as of this encounter (statuses as of 10/31/2021) Medications Medication Sig Dispensed Refills Start Date [...] Underwear 32 Each 2 03/18/2021 Active Nystatin 924535 UNIT/GM External Powder (Nystop) 1 harriet, Powder, Topical twice daily, 1 EA, 0 Refill(s), Indication: Candidiasis of Skin, Route to Pharmacy Electronically, [facility] - [address], [address], 10/02/20 10:43:00 EST, Height/Length Dosing, cm, 116.3, 10/02/20 10:43:00 EST, Weight Dosing, kg 15 g 1 03/27/2021 Active guaiFENesin-Codeine 100-10 MG/5ML Oral Syrup (Robitussin AC) Take 5 mL by mouth every 4 hours as needed for Cough. 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 Medication Therapy Disease Management - Anticoagulation Patient: Kimberly Kendall : 1960 Contacts Type Contact Phone 10/31/2021 11:34 AM EST Phone (Outgoing) Kimberly Kendall (Self) [phone] (M) Left Message Current Warfarin Dose As of 10/31/2021 Warfarin maintenance plan: 7.5 mg (5 mg x 1 and 2.5 mg x 1) every Tue, Wed, Sat; 10 mg (5 mg x 2) all other days INR Result As of 10/31/2021 INR goal: 2.0-3.0 INR used for dosin.34 (10/31/2021) Warfarin Plan As of 10/31/2021 Full warfarin instructions: 10/31: 17.5 mg; Otherwise 7.5 mg every Tue, Wed, Sat; 10 mg all other days Next INR check: 11/06/2021 Additional Dosing Information: Description GML Repeat PT/INR in 1 week(s) Weekly dose: not changed due to suspected noncompliance per previous notes would like to confirm patient actually taking correctly prior to increasing dose further. Had to leave another message for patient. Piedad Craft RP Clinical Pharmacist 10/31/2021, 11:29 AM documented in this encounter Plan of Treatment Upcoming Encounters Date Type Specialty Care Team Description 11/06/2021 [facility] [address] [place] [address] 11/10/2021 Telemedicine Psychiatry Hugo Alcantara MD [address] [place] [address] 11/10/2021 Home Visit Family Medicine Fawn Godfrey, Community Health Child And Family Services Specialist [address] [place] [address] 11/11/2021 Office Visit Family Medicine Roger Alexandra MD 132 [facility] [address] 07/24/2022 Office Visit Pulmonary Jesus Bonilla MD [address] [place] [facility] [place] [address] Scheduled Procedures Name Priority Associated Diagnoses [...] Documents on File Type Date Recorded Patient Ranch Supervisor Expl 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 Advanced Directive 11/02/2011 12:00 AM Care Teams Seasonal Sales Associate Relationship Specialty Start Date End Date Roger Alexandra MD [address] [place] [address] [place] [address] PCP - General Family Medicine 12/29/19 documented as of this encounter
--- OUTSIDE RECORDS SUMMARY | 2023-07-25 04:51 | External Medical Summary | Summary of Care ---
Author Name Unknown Organization [facility] Address [place] [address] Care Team Providers Care Tumbler Operator Name Role Phone Roger Alexandra MD Primary Care Provider [phone] Reason for Visit * Reason Comments Scheduling Encounter Details Date Type Department Care Team Description 10/29/2021 Anticoagulation Pharmacy Call Center [address] [facility] [place] [address] [facility] [address] [place] [address] Anticoagulation management encounter* Allergies Active Allergy Reactions Severity Noted Date Comments Aspirin Unknown 12/12/2007 von Willebrand's disease Salicylates 03/01/2000 von Willebrand's disease documented as of this encounter (statuses as of 10/29/2021) Medications Medication Sig Dispensed Refills Start Date [...] Underwear 32 Each 2 03/18/2021 Active Nystatin 516659 UNIT/GM External Powder (Nystop) 1 harriet, Powder, [...] 0 04/23/2021 Active Vitamin D3 1.25 MG (27979 UT) Oral CapsuleIndications: Vitamin D deficiency Take [...] as of this encounter (statuses as of 10/29/2021) Active Problems Problem Noted Date Chronic hypoxemic [...] as of this encounter (statuses as of 10/29/2021) Resolved Problems Problem Noted Date Resolved Date [...] 02/04/2006 12/21/2008 Atrial septal aneurysm 02/04/2006 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 Ordered by Kim Mercado. Thank you documented in this encounter Plan of Treatment Upcoming Encounters Date Type Specialty Care Team Description 10/29/2021 Home Visit Family Medicine Fawn Godfrey, Community Health Paper Box Maker [address] [place] [address] 10/31/2021 Anticoagulation Pharmacy Telepharmacy, [place] [address] [place] [address] 11/10/2021 Telemedicine Psychiatry Hugo Alcantara MD [address] [place] [address] 11/11/2021 Office Visit Family Medicine Roger Alexandra MD [address] [place] [address] 07/24/2022 Office Visit Pulmonary Jesus Bonilla MD [...] Documents on File Type Date Recorded Patient Collection Officer Expl 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 Advanced Directive 11/02/2011 12:00 AM Care Teams Tumbler Operator Relationship Specialty Start Date End Date Roger Alexandra MD [address] [facility] [place] [address] PCP - General Family Medicine 12/29/19 documented as of this encounter
--- OUTSIDE RECORDS SUMMARY | 2023-07-25 04:51 | External Medical Summary | Summary of Care ---
Author Name Unknown Organization [place] [address] Care Team Providers Care Truck Crane Operator Name Role Phone Roger Alexandra MD Primary Care Provider [phone] Reason for Visit * Reason Onset Date Comments [facility] Care Coordination Services 11/03/2021 Encounter Details Date Type Department Care Team Description 11/03/2021 Telephone Care Coordination [address] [place] [address] Fawn Godfrey, Community Health Manager Urgent Care [address] [place] [address] [facility] Care Coordination Services Allergies Active Allergy [...] 0 04/23/2021 Active Vitamin D3 1.25 MG (13793 UT) Oral CapsuleIndications: Vitamin D deficiency Take [...] Severe. 90 Tablet 0 10/09/2021 Active Nystatin 855842 UNIT/GM External Powder (Nystop) 1 harriet, Powder, [...] Care Team Description 11/06/2021 Laboratory Laboratory Processing [facility] Mobile Home Draw [address] [place] [address] 11/06/2021 [facility] [address] [place] [address] 11/10/2021 Telemedicine Psychiatry Hugo Alcantara MD [address] [place] [address] 11/10/2021 Home Visit Family Medicine Fawn Godfrey, Community Health Manager Urgent Care [address] [place] [address] 11/11/2021 Office Visit Family Medicine Roger Alexandra MD [address] [facility] [place] [address] 07/24/2022 Office Visit Pulmonary Jesus Bonilla MD [...] on File Type Date Recorded Patient Clinical Statistical Programmer Expl 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 Advanced Directive 11/02/2011 12:00 AM Care Teams Truck Crane Operator Relationship Specialty Start Date End Date Roger Alexandra MD 132 [facility] [place] [address] PCP - General Family Medicine 12/29/19 documented as of this encounter
--- OUTSIDE RECORDS SUMMARY | 2023-07-25 04:51 | External Medical Summary | Summary of Care ---
Author Name Unknown Organization [place] [address] Care Team Providers Care Drama Director Name Role Phone Roger Alexandra MD Primary Care Provider [phone] Reason for Visit * Reason Comments [facility] Care Coordination Services Encounter Details Date Type Department Care Team Description 10/29/2021 Home Visit Care Coordination [address] [place] [address] Fawn Godfrey, Community Health Retail Merchandising Coordinator [address] [place] [address] Allergies Active Allergy Reactions Severity Noted Date [...] Underwear 32 Each 2 03/18/2021 Active Nystatin 435969 UNIT/GM External Powder (Nystop) 1 harriet, Powder, [...] 0 04/23/2021 Active Vitamin D3 1.25 MG (75338 UT) Oral CapsuleIndications: Vitamin D deficiency Take [...] Sign Reading Time Taken Comments Blood Pressure 115/60 10/29/2021 12:58 PM EST Pulse 81 10/29/2021 12:58 PM EST Temperature 36.6 C (97.8 F) 10/29/2021 12:[address] Respiratory Rate - - Oxygen Saturation 93% 10/29/2021 12:58 PM EST Inhaled Oxygen Concentration - - Weight - - Height - - Body Mass Index - - documented in this encounter Progress Notes * Fawn Godfrey, [facility] Health Retail Merchandising Coordinator - 10/29/2021 12:36 PM EST Community Health Retail Merchandising Coordinator Visit Date: 10/29/2021 Time: 12:37 PM Name: Kimberly Kendall : 1960 Referral Source: manager drive Source of Information: Patient Spoken language: indonesian Patient can read in East Timorese: Yes. Cod Clerk needed: No. COVID-19 screening completed: Yes Vitals: Vital signs completed: Yes, vital signs within normal range. BP 115/60 | Pulse 81 | Temp 36.6 C (97.8 F) | SpO2 93% NO Condition Changes: Changes in health or social status since last visit: Yes-she states she is getting worse with moving around. She has severe headaches often. The patient has new concerns since last visit: No Progress towards goals since last visit: No Medications: Medication review completed? Yes, gaps identified and escalated to nurse/provider: Notified RN on the medications the patient is not taking. She also states she does not have [facility] I [facility] mail order pharmacy and the pt declined. Patient is taking all the medications listen in Epic except for Robitussin, Furoremide, Zofran and Cholestyramine. She needs a refill or Nystatin. Does the patient have barriers to medication adherence? Yes. Picking prescriptions up: she has no family that will filler picker RX. Remembering to reorder prescriptions: She just forgets and doesn't make the call to order RX. Patient reports difficulty paying for medications or might in the future: No. Telehealth: This is a telehealth visit: No. Symptoms Surveys and Evaluations: [facility]10 completed this visit: Yes. Score is 4 or more? Yes, notified Provider/Computer Forensic Examiner Last flowsheet values for [facility]: Age 65+: 0 (10/29/2021 12:00 PM) Diagnosis (3 or more co-existing): 1 (10/29/2021 12:00 PM) Prior history of falls within 3 months: 0 (10/29/2021 12:00 PM) Incontinence: 1 (10/29/2021 12:00 PM) Visual impairment: 1 (10/29/2021 12:00 PM) Impaired functional mobility: 1 (10/29/2021 12:00 PM) Environmental hazards: 0 (10/29/2021 12:00 PM) Poly Pharmacy (4 or more prescriptions - any type): 1 (10/29/2021 12:00 PM) Pain affecting level of function: 1 (10/29/2021 12:00 PM) Cognitive impairment: 1 (10/29/2021 12:00 PM) Score - a score of 4 or more is considered at risk for fallin (10/29/2021 12:00 PM) COPD Checklist COPD EMERSON (Community Health Retail Merchandising Coordinator) Checklist The patient uses oxygen: Yes Tanks are stored: In another room Compressor located away from anything flammable: yes Oxygen tubing: - Clean and in good repair: Yes - Reached out to Durable Medical Equipment supplier for replacement tubing: No, - Referred to Computer Forensic Examiner for additional in-home respiratory assessment: No, - Other: Describe how the patient manages going out with oxygen: - Referred to Computer Forensic Examiner for portable oxygen order: No - Coordinated portable oxygen tanks with Durable Medical Equipment supplier: No The patient uses a nebulizer: No The patient uses an inhaler: Yes -sometimes Describe how the patient uses the inhaler: Patient acknowledged the need to rinse their mouth after using the inhaler. Describe how the patient cleans the inhaler: Reviewed cleaning with patient and they returned demonstration. Frequency of inhaler use: When she feels like using it COPD Assessment Test (CAT) completed this visit: Yes Last flowsheet values for COPD Assessment Test (CAT): How often do you cough?: 3 (10/29/2021 12:00 PM) Do you have phlegm (mucus) in your chest at all? : 3 (10/29/2021 12:00 PM) Does your chest feel tight?: 5 (10/29/2021 12:00 PM) How out of breath are you when you walk up a hill or flight of stairs?: 5 (10/29/2021 12:00 PM) How limited are you doing any activities at home?: 5 (10/29/2021 12:00 PM) How confident are you in leaving your home with your lung condition?: 1 (10/29/2021 12:00 PM) How soundly do you sleep?: 5 (10/29/2021 12:00 PM) How much energy do you have?: 5 (10/29/2021 12:00 PM) CAT Total Score: 32 (10/29/2021 12:00 PM) Home Safety NoDoes member identify any safety issues related to entering or exiting their home? Yes Does the patient need a wheelchair ramp to access the home? No Snow/ice removal assistance available? Yes Is there adequate lighting? Yes Are there railings on stairs? No Do sidewalks appear to be in good [...] air conditioner or other coolingdevice will help? No Do stairs in the home have railings? No Is there a medical alert or phone near patient? Yes Are walkways clear and well lit? Yes Does member identify any safety issues related to utilizing or accessing the bathroom in their home? Yes Does bathroom have grab bars needed? Yes The patient reports needing help getting on and off the toilet? No Does the patient report needing help bathing? Yes Patient states that she needs help getting into her shower and has no help at this time. She does not feel safe doing it herself. Are there any other identified issues/needs? No. If yes specify: Social Determinants of Health: Safety: o Patient reports feeling unsafe in their home: Yes-She cant get food and home suplies. Housing: o Patient reports they are at risk of becoming homeless: No. Home/Living situation: o Patient lives alone: Yes o Bathroom is located 1 o Bedroom is located 1 o Patient has to go up and down steps: No. o Patient receives help from family/friends/neighbors/community agencies etc.: No. DME: o DME used: [employer] o Patient has concerns related to DME: No. Financial: o Patient reports experiencing a financial hardship: No. Employment: o Patient is unemployed or without regular income: No. Utilities: o Patient reports difficulty paying heating, water, or electric bill: No. Transportation: o Patient drives: No. o Does anyone drive patient to appointments and shopping? No. o Patient receives community or public transportation assistance: No. o Patient reports trouble getting a ride to medical visits or work: Often True. Specify plan/referrals/care team members notified: Clothing: o Patient reports being unable to get clothing when it was really needed: No. Food insecurity: o Patient has concerns surrounding meals/food: No. She has food but states she has not had any vegetables in months.. o Within the past 12 months patient [...] is present, patient reports adequate support: Yes. Patient has no care givers at this time and is in great need of one. She states "Juan Pablo" was to call her last week and did not return call. She didn't try to call him herself. Connections: o How often do you feel lonely or isolated from those around you? Always. Specify plan/referrals/care team members notified: she has no family help and is depressed Plan: Plan for the patient to contact Juan Pablo from to see if there is anyone yet that can help the patient at home. EMERSON will aslo contact Juan Pablo to see what he has found out. Follow Up: Patient encouraged to call the intake phone number for all urgent but not emergent issues. Scheduled to follow up with patient with a call before her office visit with PCP to remind of upcoming appt. Patient states she is very anxious, very nervous and depressed. She broke down and cried during ourconversation a few times. EMERSON asked if she ever tried PT and she stated "I think so" " but have no idea when". EMERSON stated this might help with her walking around by herself. I told her I will contactJuan Pablo about help in the home and fu with a call. Fawn Godfrey Community Health Retail Merchandising Coordinator 10/29/2021 12:37 PM Electronically signed by Fawn Godfrey [facility] Health Retail Merchandising Coordinator at 10/29/2021 3:30 PM EST documented in this encounter Plan of Treatment Upcoming Encounters Date Type Specialty Care Team Description 10/30/2021 Laboratory Laboratory Processing [facility] Mobile Home Draw [address] [place] [address] 10/31/2021 [facility] [address] [place] [address] 11/10/2021 Telemedicine Psychiatry Hugo Alcantara MD [address] [place] [address] 11/11/2021 Office Visit Family Medicine Roger Alexandra MD [address] [facility] [place] [address] 07/24/2022 Office Visit Pulmonary Jesus Bonilla MD [address] [place] [address] Scheduled Procedures Name Priority [...] Documents on File Type Date Recorded Patient Food Photographer Expl 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 Advanced Directive 11/02/2011 12:00 AM Care Teams Drama Director Relationship Specialty Start Date End Date Roger Alexandra MD [address] [facility] [place] [address] PCP - General Family Medicine 12/29/19 documented as of this encounter
--- OUTSIDE RECORDS SUMMARY | 2023-07-25 04:52 | External Medical Summary | Summary of Care ---
Author Name Unknown Organization [facility] Address [place] [address] Care Team Providers Care Narrow Gauge Brakeman Name Role Phone Roger Alexandra MD Primary Care Provider [phone] Reason for Visit * Reason Comments Dosage Adjustment Via Phone (anticoag Cl inic) Encounter Details Date Type Department Care Team Description 10/21/2021 Anticoagulation Pharmacy Call Center [address] [facility] [place] [address] [facility] [place] [address] tank terminal gauger current use of anticoagulant therapy* Allergies Active Allergy Reactions Severity Noted Date Comments Aspirin Unknown 12/12/2007 von Willebrand's disease Salicylates 03/01/2000 von Willebrand's disease documented as of this encounter (statuses as of 10/21/2021) Medications Medication Sig Dispensed Refills Start Date [...] Underwear 32 Each 2 03/18/2021 Active Nystatin 804273 UNIT/GM External Powder (Nystop) 1 harriet, Powder, [...] 0 04/23/2021 Active Vitamin D3 1.25 MG (97981 UT) Oral CapsuleIndications: Vitamin D deficiency Take [...] as of this encounter (statuses as of 10/21/2021) Active Problems Problem Noted Date Chronic hypoxemic [...] as of this encounter (statuses as of 10/21/2021) Resolved Problems Problem Noted Date Resolved Date [...] as of this encounter (statuses as of 10/21/2021) Immunizations Name Administration Dates Next Due H1N1 [...] Progress Notes * Kim Mercado RPh - 10/21/2021 1:54 PM EST Images from the original note were not included. Medication Therapy Disease Management - Anticoagulation Patient: Kimberly Kendall : 1960 Contacts Type Contact Phone 10/21/2021 01:53 PM EST Phone (Outgoing) Kimberly Kendall (Self) [phone] (M) Left Message Current Warfarin Dose As of 10/21/2021 Warfarin maintenance plan: 7.5 mg (5 mg x 1 and 2.5 mg x 1) every Tue, Wed, Sat; 10 mg (5 mg x 2) all other days Patient-Reported Symptoms: INR Result As of 10/21/2021 INR goal: 2.0-3.0 INR used for dosin.10 (10/21/2021) Warfarin Plan As of 10/21/2021 Full warfarin instructions: 10/21: 15 mg; 10/22: 15 mg; Otherwise 7.5 mg every Tue, Wed, Sat; 10 mg all other days Next INR check: 10/28/2021 Additional Dosing Information: Description GML Repeat PT/INR in 1 week(s) Weekly dose: not changed due to history of non-compliance. Want to confirm pt has been taking it before increasing weekly dose Kim Mercado RPh Clinical Pharmacist 10/21/2021, 1:54 PM documented in this encounter Plan of Treatment Upcoming Encounters Date Type Specialty Care Team Description 10/23/2021 Home Visit Family Medicine Fawn Godfrey, Community Health Room Service Manager [address] [place] [address] 10/29/20[facility] [address] [place] [address] 11/10/2021 Telemedicine Psychiatry Hugo Alcantara MD [address] [place] [address] 11/11/2021 Office Visit Family Medicine Roger Alexandra MD [address] [place] [address] 07/24/2022 Office Visit Pulmonary Jesus Bonilla MD [address] [place] [address] Scheduled Procedures Name Priority Associated [...] File Type Date Recorded Patient Director Of Physiotherapy Services Expl 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 Advanced Directive 11/02/2011 12:00 AM Care Teams Narrow Gauge Brakeman Relationship Specialty Start Date End Date Roger Alexandra MD [address] [facility] [place] [address] PCP - General Family Medicine 12/29/19 documented as of this encounter
--- OUTSIDE RECORDS SUMMARY | 2023-07-25 04:52 | External Medical Summary ---
Author Name Unknown Address Unknown Organization [facility] [address] [place] [address] Laboratory Report Ordering Provider Test Date Status SUMAN STANFORD 10/14/2021 09:42:00 Final Observation Date Value Abnormality Reference (Units ) Status PT 10/14/2021 09:42:00 13.8 11.5-14.6 (seconds) Final INR 10/14/2021 09:42:00 1.04 0.84-1.14 Final Performing Location [facility] [place] [address] [place] [address]
--- OUTSIDE RECORDS SUMMARY | 2023-07-25 04:52 | External Medical Summary | Summary of Care ---
Author Name Unknown Organization [place] [address] Care Team Providers Care Family Court Registrar Name Role Phone Roger Alexandra MD Primary Care Provider [phone] Reason for Visit * Reason Onset Date Comments Medication Refill 10/03/2021 Encounter Details Date Type Department Care Team Description 10/03/2021 Refill Family [facility] [address] [place] [address] Roger Alexandra MD [address] [facility] [place] [address] Chronic bilateral low back pain without sciatica Allergies Active Allergy Reactions Severity Noted Date Comments Aspirin Unknown 12/12/2007 von Willebrand's disease Salicylates 03/01/2000 von Willebrand's disease documented as of this encounter (statuses as of 10/03/2021) Medications Medication Sig Dispensed Refills Start Date [...] Underwear 32 Each 2 03/18/2021 Active Nystatin 756748 UNIT/GM External Powder (Nystop) 1 harriet, Powder, [...] 0 04/23/2021 Active Vitamin D3 1.25 MG (84449 UT) Oral CapsuleIndications: Vitamin D deficiency Take [...] a day. 60 Tab 2 09/08/2021 Active traMADol HCl 100 MG Oral TabletIndications:C hronic bilateral low back pain without sciatica Take 100 mg by mouth every 8 hours as needed for Pain, Moderate or Pain, Severe. 90 Tab 0 09/09/2021 Active traZODone HCl 150 MG Oral Tablet [...] as of this encounter (statuses as of 10/03/2021) Active Problems Problem Noted Date Chronic hypoxemic [...] as of this encounter (statuses as of 10/03/2021) Resolved Problems Problem Noted Date Resolved Date [...] as of this encounter (statuses as of 10/03/2021) Immunizations Name Administration Dates Next Due H1N1 [...] encounter Miscellaneous Notes * Telephone Encounter - Timothy Thurman MD - 10/03/2021 4:22 PM EST Refused Prescriptions: Disp Refills traMADol HCl 100 MG Oral Tablet 90 Tab*0 Sig: Take 100 mg by mouth every 8 hours as needed for Pain, Moderate or Pain, Severe.Refused By: TIMOTHY THURMAN for Refusal: Too soonReason for Refusal Comment: 30-day supply provided * Telephone Encounter - Timothy Thurman MD - 10/03/2021 4:20 PM EST I have reviewed the patient's controlled substance dispensing history in the Prescription Drug Monitoring Program in compliance with the [facility] regulations before prescribing a controlled substance. 30-day supply provided 09/10/21. Problem list reviewed - notes problems with regimens in past. Rx declined. * Telephone Encounter - Alvarez Mueller [facility] - 10/03/2021 1:09 PM EST Pending Prescriptions: Disp Refills traMADol HCl 100 MG Oral Tablet 90 Tab*0 Sig: Take 100 mg by mouth every 8 hours as needed for Pain, Moderate or Pain, Severe. * Telephone Encounter - Alvarez Mueller RP - 10/03/2021 1:07 PM EST Too soon. Please see request below I have reviewed the patients controlled substance dispensing history in the Prescription Drug Monitoring Program in compliance with the [facility] regulations before prescribing a controlled substance. PDMP checked on 10/03/2021. Pending Prescriptions: Disp Refills traMADol HCl 100 MG Oral Tablet 90 Tab*0 Sig: Take 100 mg by mouth every 8 hours as needed for Pain, Moderate or Pain, Severe. Last Office/Telemedicine Visit: 06/12/2021 Next Office Visit: 11/11/2021 Scheduled Provider(s): Roger Alexandra MD Date medication was last filled: 09/10 Date medication is due for refill: 10/10 [facility]acy: [id number] Is this request for a controlled [...] appropriate. Thanks, Alvarez Mueller, PharmD Clinical Pharmacist [facility] [phone] 10/03/2021 1:08 PM * Telephone Encounter - Vignesh Whitaker, surface hydrologist - 10/03/2021 11:56 AM EST Pt called stating she wants request submitted today because it takes DR a long time to send it in to pharmacy. Pending Prescriptions: Disp Refills traMADol HCl 100 MG Oral Tablet 90 Tab*0 Sig: Take 100 mg by mouth every 8 hours as needed for Pain, Moderate or Pain, Severe. Last Office/Telemedicine Visit: 06/12/2021 Next Office Visit: 11/11/2021 Scheduled Provider(s): Roger Alexandra MD If no future appointments scheduled, and last appointment is greater than a year ago, please schedule patient for a follow-up appointment Last date the medication was ordered: 09/08/2021 Pharmacy: [id number] Is this request for a controlled [...] found in Results Review. Patient Phone Numbers [facility] [phone] Labs: Lab Results Component Value Date/Time CREAT [...] Encounters Date Type Specialty Care Team Description 10/06/2021 Laboratory Laboratory Processing [facility] Mobile Home Draw [address] [place] [address] 10/07/2021 [facility] [address] [place] [address] 10/23/2021 Home Visit Family Medicine Fawn Godfrey, [facility] Male Impersonator [address] [place] [address] 11/10/2021 Telemedicine Psychiatry Hugo Alcantara MD [address] [place] [address] 11/11/2021 Office Visit Family Medicine Roger Alexandra MD [address] [place] [address] 07/24/2022 Office Visit Pulmonary Jesus Bonilla MD [address] [place] [address] Scheduled Procedures Name Priority Associated [...] Documents on File Type Date Recorded Patient Panel Coverer Expl 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 Directive 11/02/2011 12:[address] Registrar Relationship Specialty Start Date End Date Roger Alexandra MD 132 [facility] [place] [address] PCP - General Family Medicine 12/29/19 documented as of this encounter
--- OUTSIDE RECORDS SUMMARY | 2023-07-25 04:52 | External Medical Summary | Summary of Care ---
Author Name Unknown Organization [place] [address] Care Team Providers Care Injection Molding Operator Name Role Phone Roger Alexandra MD Primary Care Provider [phone] Reason for Referral * Evaluate & Treat - Unlimited Visits (Within 10 days (routine)) - Authorized Specialty Diagnoses / Procedures Referred By Contac t Referred To Contact Psychology Diagnoses SIMA (generalized anxiety disorder) Hugo Alcantara MD [address] [place] [address] Referral ID Status Reason Start Date Expiration Date Visits Requested Visits Authorized [id number] Authorized Specialty Services Required 1 1 1 Question Answer Referral Priority Within 10 days (routine) Referral Location Referring within [facility] Reason for Referral: Anxiety Comments Grief Reason for Visit * Reason Onset Date Comments Anxiety 09/30/2021 Encounter Details Date Type Department Care Team Description 09/30/2021 Telephone Psychiatry, [address] [address] Hugo Alcantara MD [address] [place] [address] Anxiety Allergies Active Allergy Reactions Severity Noted Date Comments Aspirin Unknown 12/12/2007 von Willebrand's disease Salicylates 03/01/2000 von Willebrand's disease documented as of this encounter (statuses as of 10/01/2021) Medications Medication Sig Dispensed Refills Start Date [...] Underwear 32 Each 2 03/18/2021 Active Nystatin 712770 UNIT/GM External Powder (Nystop) 1 harriet, Powder, Topical twice daily, 1 EA, 0 Refill(s), Indication: Candidiasis of Skin, Route to Pharmacy Electronically, [facility] [address], [address], 10/02/20 10:43:00 EST, Height/Length Dosing, cm, 116.3, 10/02/20 10:43:00 EST, Weight Dosing, kg 15 g 1 03/27/2021 Active guaiFENesin-Codeine 100-10 MG/5ML Oral Syrup (Robitussin AC) Take 5 mL by mouth every 4 hours as needed for Cough. 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 States she had "a really bad day yesterday". Unsure if increased trazodone was helpful. Feels Ativan "isn't working". Discussed we can't increase this further. Will increase Prozac to 60mg daily. She states she is open to therapy referral. Will place this referral. * Telephone Encounter - RUFINA Verdin - 09/30/2021 3:35 PM EST Patient calling - seen by you yesterday. Patient is crying on phone, states she needs to talk to you about "something" for her anxiety to use during the day - states all she does is cry, is anxious and it is making her breathing harder. Says she doesn't know what to do anymore. Please call her at [phone] documented in this encounter Plan of Treatment Upcoming Encounters Date Type Specialty Care Team Description 10/01/2021 Home Visit Family Medicine Fawn Godfrey, [facility] Taffy Candy Maker [address] [place] [address] 10/06/2021 Laboratory Laboratory Processing [facility] Mobile Home Draw [address] [place] [address] 10/07/2021 [facility] [address] [place] [address] 11/10/2021 Telemedicine Psychiatry Hugo Alcantara MD [address] [place] [address] 11/11/2021 Office Visit Family Medicine Roger Alexandra MD [address] [place] [address] Scheduled Procedures Name Priority Associated Diagnoses Date/Ti me COLONOSCOPY FLEXIBLE PROXIMAL DIAGNOSTIC Recall History of colon polyps Scheduled Referrals Name Type Priority Associated Diagnoses Orde r Schedule PSYCHOLOGY REFERRAL OP Referral Within 10 days (routine) SIMA (generalized anxiety disorder) Ordered: 10/01/2021 Health Maintenance Due Date Last Done Comments [...] Documents on File Type Date Recorded Patient Bilingual Hr Generalist Expl 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 Advanced Directive 11/02/2011 12:00 AM Care Teams Injection Molding Operator Relationship Specialty Start Date End Date Roger Alexandra MD [address] [place] [address] [place] [address] PCP - General Family Medicine 12/29/19 documented as of this encounter
--- OUTSIDE RECORDS SUMMARY | 2023-07-25 04:52 | External Medical Summary | Summary of Care ---
Author Name Unknown Organization [place] [address] Care Team Providers Care Catalogue And Special Products Manager Name Role Phone Roger Alexandra MD Primary Care Provider [phone] [phone] Reason for Visit * Reason Onset Date Comments case management 10/03/2021 Coordination of Care/Caregiver services. Encounter Details Date Type Department Care Team Description 10/03/2021 Dental Hygienist Mobile Coordinator Telephone Family Practice [facility] [address] [place] [address] Cordelia Burns, EMELY [address] [facility] [place] [address] case management (Coordination of Care/Care... Allergies Active Allergy Reactions Severity Noted Date [...] Underwear 32 Each 2 03/18/2021 Active Nystatin 925250 UNIT/GM External Powder (Nystop) 1 harriet, Powder, [...] 0 04/23/2021 Active Vitamin D3 1.25 MG (06147 UT) Oral CapsuleIndications: Vitamin D deficiency Take [...] Telephone Encounter - Cordelia Burns RN - 10/03/2021 1:19 PM EST Spoke with Juan Pablo regarding caregiver services. He currently does not have staff to support patient. He has had a position in the area posted for 2-3 months and no applicants. Her caregiver services are funded through [place] [employer]. Asked about family: states backup plan was for Son and granddaughter to assist patient at home. He also has a call out to Sandy regarding caregiver services. * Telephone Encounter - Cordelia Burns RN - 10/03/2021 1:15 PM EST PC to Sandy [phone]; Voice mail identified as Yunior EMERSON; left message for return call. PC to Juan Pablo/Caregiver services/ [phone]. Left generic message on unidentified machine for return call. documented in this encounter Plan of Treatment Upcoming Encounters Date Type Specialty Care Team Description 10/06/2021 Laboratory Laboratory Processing [facility] Mobile Home Draw [address] [place] [address] 10/07/2021 [facility] [place] [address] [address] [place] [address] 10/23/2021 Home Visit Family Medicine Fawn Godfrey, [facility] Home And Family Living Professor [address] [place] [address] 11/10/2021 Telemedicine Psychiatry Hugo Alcantara MD [address] [place] [address] 11/11/2021 Office Visit Family Medicine Roger Alexandra MD [address] [place] [address] 07/24/2022 Office Visit Pulmonary Jesus Bonilla MD [address] [place] [facility] [place] [place] [address] Scheduled Procedures Name Priority [...] Documents on File Type Date Recorded Patient Milk Delivery Driver Expl 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 Advanced Directive 11/02/2011 12:00 AM Care Teams Catalogue And Special Products Manager Relationship Specialty Start Date End Date Roger Alexandra MD [address] [place] [address] [place] [address] PCP - General Family Medicine 12/29/19 documented as of this encounter
--- OUTSIDE RECORDS SUMMARY | 2023-07-25 04:52 | External Medical Summary | Summary of Care ---
Author Name Unknown Organization [place] [address] Care Team Providers Care Scene Painter Name Role Phone Roger Alexandra MD Primary Care Provider [phone] [phone] Reason for Visit * Reason Comments [facility] Care Coordination Services Encounter Details Date Type Department Care Team Description 10/01/2021 Home Visit Care Coordination [address] [place] [address] Fawn Godfrey, Community [facility] Annealing Furnace Tender [address] [place] [address] Allergies Active Allergy Reactions Severity Noted Date [...] Underwear 32 Each 2 03/18/2021 Active Nystatin 959869 UNIT/GM External Powder (Nystop) 1 harriet, Powder, [...] 0 04/23/2021 Active Vitamin D3 1.25 MG (12731 UT) Oral CapsuleIndications: Vitamin D deficiency Take [...] Sign Reading Time Taken Comments Blood Pressure 124/66 10/01/2021 1:54 PM EST Pulse 77 10/01/2021 1:54 PM EST Temperature 36.9 C (98.4 F) 10/01/2021 1:54 PM ES T Respiratory Rate - - Oxygen Saturation 96% 10/01/2021 1:54 PM EST Inhaled Oxygen Concentration - - Weight - - Height - - Body Mass Index - - documented in this encounter Progress Notes * Fawn Godfrey, [facility] Annealing Furnace Tender - 10/01/2021 1:31 PM EST Images from the original note were not included. [facility] Annealing Furnace Tender Visit Date: 10/01/2021 Time: 1:31 PM Name: Kimberly Kendall : 1960 Referral Source: heavy equipment sales manager EMERSON spent 1 1/2 hr with the patient Source of Information: Patient Spoken language: albanian Patient can read in Beninese: Yes. Terminal Makeup Operator needed: No. COVID-19 screening completed: Yes Vitals: Vital signs completed: Yes, vital signs within normal range. BP 124/66 (BP Site: Left Arm, BP Position: Sitting, BP Cuff Size: Regular) | Pulse 77 | Temp 36.9 C (98.4 F) | SpO2 96% Condition Changes: Changes in health or social status since last visit: Not sure? The patient has new concerns since last visit: Yes, She has sore on stomach area and it sometimes bleeds. Its painful. Progress towards goals since last visit: Medications: Medication review completed? Yes, gaps identified and escalated to nurse/provider: Patient is not taking inhalers, nebulizer treatment, Furosemide, zofran, Cholestyramine powder, and Quaifenesin-Codeine. She has no one to put her pills into her pill box. Granddaughter is afraid to do it due to not doing it correctly. So she has not been taking her medications. Does the patient have barriers to medication adherence? No. Patient reports difficulty paying for medications or might in the future: No. Telehealth: This is a telehealth visit: No. Symptoms Surveys and Evaluations: [facility] completed this visit: Yes. Score is greater than 4? Yes, notified Provider/Edging Supervisor Last flowsheet values for [facility]: Age 65+: 0 (10/01/2021 1:00 PM) Diagnosis (3 or more co-existing): 1 (10/01/2021 1:00 PM) Prior history of falls within 3 months: 1 (10/01/2021 1:00 PM) Incontinence: 1 (10/01/2021 1:00 PM) Visual impairment: 1 (10/01/2021 1:00 PM) Impaired functional mobility: 1 (10/01/2021 1:00 PM) Environmental hazards: 0 (10/01/2021 1:00 PM) Poly Pharmacy (4 or more prescriptions - any type): 1 (10/01/2021 1:00 PM) Pain affecting level of function: 1 (10/01/2021 1:00 PM) Cognitive impairment: 0 (10/01/2021 1:00 PM) Score - a score of 4 or more is considered at risk for fallin (10/01/2021 1:00 PM) COPD Checklist COPD EMERSON ([facility] Annealing Furnace Tender) Checklist The patient uses oxygen: Yes Tanks are stored: in the bedroom Compressor located away from anything flammable: yes Oxygen tubing: - Clean and in good repair: Yes - Reached out to Durable Medical Equipment supplier for replacement tubing: No, - Referred to Edging Supervisor for additional in-home respiratory assessment: No, - Other: Describe how the patient manages going out with oxygen: She does not go out, but does have a inogen portable oxygen tank. - Referred to Edging Supervisor for portable oxygen order: No - Coordinated portable oxygen tanks with Durable Medical Equipment supplier: No The patient uses a nebulizer: No The patient uses an inhaler: No COPD Assessment Test (CAT) completed this visit: Yes Last flowsheet values for COPD Assessment Test (CAT): How often do you cough?: 3 (10/01/2021 1:00 PM) Do you have phlegm (mucus) in your chest at all? : 3 (10/01/2021 1:00 PM) Does your chest feel tight?: 4 (10/01/2021 1:00 PM) How out of breath are you when you walk up a hill or flight of stairs?: 5 (10/01/2021 1:00 PM) How limited are you doing any activities at home?: 5 (10/01/2021 1:00 PM) How confident are you in leaving your home with your lung condition?: 5 (10/01/2021 1:00 PM) How soundly do you sleep?: 5 (10/01/2021 1:00 PM) How much energy do you have?: 5 (10/01/2021 1:00 PM) CAT Total Score: 35 (10/01/2021 1:00 PM) Home Safety Overall assessment: o The patient has concerns related to housing: No Exterior to the home: o Able to enter and exit the home safely Yes - The steps are even and in good repair: Yes - A wheelchair ramp to access the home is needed: Yes o Snow/ice removal assistance available: Yes o Sidewalks are in good repair: N/A o Adequate lighting: Yes o Railings are on outdoor stairs: Yes Interior of the home: o If durable medical equipment is used, halls and doorways easy to navigate: Yes o There are trip hazards in the home: No - Transition ramps available: N/A o There are working smoke detectors/carbon monoxide detectors: Yes o There are signs of rodent/insect infestation: No o The house is heated by: oil - The heat system works (adequately heats the entire house): Yes o Able to open doors without difficulty: No o The doorways have levered knobs: No o The entry and exit doorways close correctly and lock: Yes o Lighting is adequate: Yes o Air quality concern that affects a health condition - Needs air conditioner or Air purifier: Yes o Secure railing in stairways in the home: No Bathroom: o Grab bars are needed: Yes o The patient reports needing help getting on and off the toilet: Yes o Needs help bathing: Yes - Has a walk in shower: No Bedroom: o There is a medical alert or phone near the bed: Yes o The walkway between the bedroom and bathroom is well lit: Yes Kitchen/Bathroom o Able to turn water on and off: Yes - (Regular knobs or levered knobs) No Social Determinants of Health: Safety: o Patient reports feeling unsafe in their home: Yes. Specify plan/referrals/care team members notified: she is afraid to walk as she does ot have any home health here to assist her in walking with her walker. She does have a ramp, but it not really wide enough. Housing: o Patient reports they are at risk of becoming homeless: No. Home/Living situation: o Patient lives alone: Yes o Bathroom is located 1 o Bedroom is located 1 o Patient has to go up and down steps: No. o Patient receives help from family/friends/neighbors/community agencies etc.: No. DME: o DME used: Walker, Wheelchair, O2 and Shower chair o Patient has [...] Often True. Specify plan/referrals/care team members notified: Her family all work and can't take off to take her to any Dr. peoples. Clothing: o Patient reports being unable to [...] you? Always. Specify plan/referrals/care team members notified: She can't get help from her family as they work. She lost her and daughter in the last year. Plan: Plan for the patient is to follow up in a few weeks. We need to know the people that she states arehelping her and what their job description is ([employer] and Juan Pablo). Patient has on her stomach a few areas that are very sore and painful. She did use Nystatin powder,but it does not seem to help. She wants to know what else she can use. This is under the skin flap of her stomach. Patient states she has no transportation to any appointments. Her son and grandchildren all work and can't take off to take her to appts. She states she is also afraid to ride in a car. She is not sure why. Her caregiver quit last week and she has no one to help her walk around, shower and/or get meals. She states she talked to Juan Pablo at [facility] about getting someone else to help, but he states there is not anyone available at this time. Patient said she is tired of eating canned ravioli and other canned things. Her son is bringing francisco peters for dinner. He lives a few houses up the street. She did have MOM's meals but cancelled them as she didn't have room in her frigator to keep them. Patient states that [employer] and then [employer] who took over her job tried to contact PCP about getting alift chair authorized. They never heard back from PCP. EMERSON will contact about this. EMERSON directed the pt on how to fill her med box. She currently only had her Vit D -1250 mg, Isosorbide, Fluoxetine and Buspirone. She does not have RX for Furosemide 20mg and Cholestyramine light. Shehas not taken any Warfarin as she doesn't know how much to take. Her last refill on that was 07-30-21. Most of her other RX were filled in July 2021 and still have pills inside. EMERSON gave the phone number of Juan Pablo and Parish to to see who they are and how they are helping the pt as she was not sure where they work and what they are doing. Follow Up: Patient encouraged to call the intake phone number for all urgent but not emergent issues. Patient does have the phone number of her CM to contact if any problems. Scheduled to follow up with patient in a few weeks. [facility] Annealing Furnace Tender 10/01/2021 1:31 PM documented in this encounter Plan of Treatment Upcoming Encounters Date Type Specialty Care Team Description 10/06/2021 Laboratory Laboratory Processing [facility], [facility] Mobile Home Draw [address] [place] [address] 10/07/2021 Anticoagulation Pharmacy Telepharmacy, [facility] [address] [place] [address] 10/23/2021 Home Visit Family Medicine Fawn Godfrey, [facility] Annealing Furnace Tender [address] [place] [address] 11/10/2021 Telemedicine Psychiatry Hugo Alcantara MD [address] [place] [address] 11/11/2021 Office Visit Family Medicine Roger Alexandra MD [address] [place] [address] Scheduled Procedures Name Priority Associated Diagnoses Date/Ti [...] Documents on File Type Date Recorded Patient Skilled Nursing Facilities Professional Expl 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 Advanced Directive 11/02/2011 12:00 AM Care Teams Scene Painter Relationship Specialty Start Date End Date Roger Alexandra MD 132 [facility] [place] [address] PCP - General Family Medicine 12/29/19 documented as of this encounter"
--- OUTSIDE RECORDS SUMMARY | 2023-07-25 04:52 | External Medical Summary | Summary of Care ---
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 operator current use of anticoagulant therapy* Allergies Active Allergy Reactions Severity Noted Date Comments Aspirin Unknown 12/12/2007 von Willebrand's disease Salicylates 03/01/2000 von Willebrand's disease documented as of this encounter (statuses as of 10/07/2021) Medications Medication Sig Dispensed Refills Start Date [...] Underwear 32 Each 2 03/18/2021 Active Nystatin 895906 UNIT/GM External Powder (Nystop) 1 harriet, Powder, [...] 0 04/23/2021 Active Vitamin D3 1.25 MG (54253 UT) Oral CapsuleIndications: Vitamin D deficiency Take [...] as of this encounter (statuses as of 10/07/2021) Active Problems Problem Noted Date Chronic hypoxemic [...] as of this encounter (statuses as of 10/07/2021) Resolved Problems Problem Noted Date Resolved Date [...] as of this encounter (statuses as of 10/07/2021) Immunizations Name Administration Dates Next Due H1N1 [...] Progress Notes * Luis Nava CPhT - 10/07/2021 2:57 PM EST Contacts Type Contact Phone 10/07/2021 01:04 PM EST Phone (Outgoing) Kimberly Kendall (Self) [phone] (M) No Answer/Busy 10/07/2021 02:55 PM EST Phone (Outgoing) Kimberly Kendall (Self) [phone] (M) Patient Findings Negatives: Signs/symptoms of thrombosis, [...] noted by Pharmacist: Yes Luis Nava CPhT 10/07/2021, 2:57 PM * Kim Mercado [facility] - 10/07/2021 9:25 AM EST Images from the original note were not included. Coumadin Clinic (region specific) Current Warfarin Dose As of 10/07/2021 Warfarin maintenance plan: 10 mg (5 mg x 2) every Mon, Christiana, Fri; 7.5 mg (5 mg x 1 and 2.5 mg x 1) all other days INR Result As of 10/07/2021 INR goal: 2.0-3.0 INR used for dosin.98 (10/06/2021) Warfarin Plan As of 10/07/2021 Full warfarin instructions: 10/07: 15 mg; 10/08: 15 mg; Otherwise 10 mg every Mon, Christiana, Fri; 7.5 mgall other days Next INR check: 10/14/2021 Stress importance of compliance- pt previously said she couldn't get to meds per chart review pt isrequesting pains meds and has taken others. Repeat PT/INR in 1 week(s) Weekly dose: not changed until pt is taking again. Additional Dosing Information: Description [facility] Tech to contact patient with dose instructions as noted. Kim Mercado RPh 10/07/2021, 9:29 AM documented in this encounter Plan of Treatment Upcoming Encounters Date Type Specialty Care Team Description 10/14/2021 Laboratory Laboratory Processing [facility] Mobile Home Draw [address] [place] [address] 10/15/2021 [facility] [address] [place] [address] 10/23/2021 Home Visit Family Medicine Fawn Godfrey, Community Health Membership Secretary [address] [place] [address] 11/10/2021 Telemedicine Psychiatry Hugo Alcantara MD [address] [place] [address] 11/11/2021 Office Visit Family Medicine Roger Alexandra MD [address] [place] [address] 07/24/2022 Office Visit Pulmonary Jesus Bonilla MD [address] [place] [address] Scheduled Procedures Name Priority Associated Diagnoses Date/Ti [...] Documents on File Type Date Recorded Patient Process Excellence Manager Expl 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 Advanced Directive 11/02/2011 12:00 AM Care Teams Portable Trackman Relationship Specialty Start Date End Date Roger Alexandra MD [address] [place] [address] PCP - [facility] 12/29/19 documented as of this encounter
--- OUTSIDE RECORDS SUMMARY | 2023-07-25 04:52 | External Medical Summary | Summary of Care ---
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 90 Tablet 1 10/08/2021 Active documented as of this encounter (statuses as of 09/29/2021) Active Problems Problem Noted Date Chronic hypoxemic [...] as of this encounter (statuses as of 09/29/2021) Resolved Problems Problem Noted Date Resolved Date [...] as of this encounter (statuses as of 09/29/2021) Immunizations Name Administration Dates Next Due H1N1 [...] Progress Notes * Kim Mercado, [facility] - 09/29/2021 12:49 PM EST Images from the original note were not included. Medication Therapy Disease Management - Anticoagulation Patient: Kimberly Kendall : 1960 Contacts Type Contact Phone 09/29/2021 02:12 PM EST Phone (Outgoing) Kimberly Kendall (Self) [phone] (M) Current Warfarin Dose As of 09/29/2021 Warfarin maintenance plan: 10 mg (5 mg x 2) every Mon, Christiana, Fri; 7.5 mg (5 mg x 1 and 2.5 mg x 1) all other days Patient-Reported Symptoms: Patient Findings Positives: Missed doses (Patient states that she has not taken her Warfarin since last . She says that her home care companion, Sandy, quit last and her pill boxes are empty. I asked her if she could go to her room to grab her warfarin so I could instruct her on how to take it. She said no, because she was in her recliner with her oxygen on. We expressed to her the importance of the medication and that we will be reaching out to her case monitor. ) INR Result As of 09/29/2021 INR goal: 2.0-3.0 INR used for dosin.99 (09/29/2021) Warfarin Plan As of 09/29/2021 Full warfarin instructions: 09/29: 15 mg; 09/30: 15 mg; Otherwise 10 mg every Mon, Christiana, Fri; 7.5 mgall other days Next INR check: 10/06/2021 Additional Dosing Information: Description GML Repeat PT/INR in 1 week(s) Weekly dose: not changed since pt not taking recently. Christoph Bagley PharmD Candidate 2021 [facility] Agree with plan as documented. Kim Mercado [facility] Clinical Pharmacist 09/29/2021, 1:31 PM documented in this encounter Plan of Treatment Upcoming Encounters Date Type Specialty Care Team Description 09/30/2021 [facility] [address] [place] [address] 10/01/2021 Home Visit Family Medicine Fawn Godfrey, Community Health Break Off Worker [address] [place] [address] 10/07/2021 [facility] [address] [place] [address] 11/10/2021 Telemedicine Psychiatry Hugo Alcantara MD [address] [place] [address] 11/11/2021 Office Visit Family Medicine Roger Alexandra MD [address] [place] [address] Scheduled Procedures Name Priority Associated Diagnoses Date/Ti [...] as of this encounter Visit Diagnoses Diagnosis 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
--- OUTSIDE RECORDS SUMMARY | 2023-07-25 04:52 | External Medical Summary ---
Author Name Unknown Address Unknown Organization K0G:[facility] [address] [place] [address] Laboratory Report Ordering Provider Test Date Status SUMAN STANFORD 10/06/2021 10:19:00 Final Observation Date Value Abnormality Reference (Units ) Status PT 10/06/2021 10:19:00 13.2 11.5-14.6 (seconds) Final INR 10/06/2021 10:19:00 0.98 0.84-1.14 Final Performing Location [facility] [address] [place] [address]
--- OUTSIDE RECORDS SUMMARY | 2023-07-25 04:52 | External Medical Summary | Summary of Care ---
Author Name Unknown Organization [facility] Address [place] [address] Care Team Providers Care Boilermaker Mechanic Name Role Phone Roger Alexandra MD Primary Care Provider +1 -[phone] Reason for Visit * Reason Comments Dosage Adjustment Via Phone (anticoag Cl inic) Encounter Details Date Type Department Care Team Description 10/14/2021 Anticoagulation Pharmacy Call Center [address] [facility] [place] [address] Telepharmacy, [facility] 58 60 [facility] [address] Cerebrovascular disease, arteriosclerotic, post-stroke* Allergies Active Allergy Reactions Severity Noted Date Comments Aspirin Unknown 12/12/2007 von Willebrand's disease Salicylates 03/01/2000 von Willebrand's disease documented as of this encounter (statuses as of 10/14/2021) Medications Medication Sig Dispensed Refills Start Date [...] Underwear 32 Each 2 03/18/2021 Active Nystatin 784176 UNIT/GM External Powder (Nystop) 1 harriet, Powder, [...] 0 04/23/2021 Active Vitamin D3 1.25 MG (63754 UT) Oral CapsuleIndications: Vitamin D deficiency Take [...] as of this encounter (statuses as of 10/14/2021) Active Problems Problem Noted Date Chronic hypoxemic [...] as of this encounter (statuses as of 10/14/2021) Resolved Problems Problem Noted Date Resolved Date [...] as of this encounter (statuses as of 10/14/2021) Immunizations Name Administration Dates Next Due H1N1 [...] as of this encounter Progress Notes * Effie Hope CPhT - 10/14/2021 2:23 PM EST Contacts Type Contact Phone 10/14/2021 02:20 PM EST Phone (Outgoing) Kimberly Kendall (Self) [phone] (M) Patient Findings Negatives: Signs/symptoms of thrombosis, [...] date communicated as noted by Pharmacist: Yes Effie Hope CPhT 10/14/2021, 2:23 PM * Kim Mercado [facility] - 10/14/2021 1:45 PM EST Images from the original note were not included. Coumadin Clinic (region specific) Current Warfarin Dose As of 10/14/2021 Warfarin maintenance plan: 10 mg (5 mg x 2) every Mon, [place], Fri; 7.5 mg (5 mg x 1 and 2.5 mg x 1) all other days INR Result As of 10/14/2021 INR goal: 2.0-3.0 INR used for dosin.04 (10/14/2021) Warfarin Plan As of 10/14/2021 Full warfarin instructions: 10/14: 15 mg; Otherwise 7.5 mg every Tue, Wed, Sat; 10 mg all other days Next INR check: 10/21/2021 Repeat PT/INR in 1 week(s) Weekly dose: increased Additional Dosing Information: Description GML Tech to contact patient with dose instructions as noted. Kim Mercado RPh 10/14/2021, 1:46 PM documented in this encounter Plan of Treatment Upcoming Encounters Date Type Specialty Care Team Description 10/22/2021 [facility] [address] [place] [address] 10/23/2021 Home Visit Family Medicine Fawn Godfrey, Community Health Director Quality Assurance [address] [place] [address] 11/10/2021 Telemedicine Psychiatry Hugo Alcantara MD [address] [place] [address] 11/11/2021 Office Visit Family Medicine Roger Alexandra MD [address] [place] [address] 07/24/2022 Office Visit Pulmonary Jesus Bonilla MD [address] [place] [facility] [place] [address] Scheduled Procedures Name Priority Associated Diagnoses [...] as of this encounter Visit Diagnoses Diagnosis Cerebrovascular disease, arteriosclerotic, post-stroke- Primary Cerebral atherosclerosis documented in this encounter Advance Directives Documents on File Type Date Recorded Patient Shagger Expl 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 Advanced Directive 11/02/2011 12:00 AM Care Teams Boilermaker Mechanic Relationship Specialty Start Date End Date Roger Alexandra MD 132 [facility] [place] [address] PCP - General Family Medicine 12/29/19 documented as of this encounter
--- OUTSIDE RECORDS SUMMARY | 2023-07-25 04:52 | External Medical Summary | Summary of Care ---
Author Name Unknown Organization [facility] Address [place] [address] Care Team Providers Care Account Service Associate Name Role Phone Roger Alexandra MD Primary Care Provider +1 [phone] Encounter Details Date Type Department Care Team Description 09/16/2021 Result Scan Unspecified Department <No scans attached> [...] Underwear 32 Each 2 03/18/2021 Active Nystatin 638010 UNIT/GM External Powder (Nystop) 1 harriet, Powder, [...] 0 04/23/2021 Active Vitamin D3 1.25 MG (95006 UT) Oral CapsuleIndications:Vi tamin D deficiency Take [...] 09/08/2021 Active traMADol HCl 100 MG Oral TabletIndications:Chr onic bilateral low back pain without sciatica Take 100 mg by mouth every 8 hours as needed for Pain, Moderate or Pain, Severe. 90 Tab 0 09/09/2021 Active documented as of this encounter (statuses [...] Care Team Description 10/14/2021 Laboratory Laboratory Processing [facility] [place], [facility] Mobile Home Draw [address] [place] [address] 10/15/2021 Counts Include [address] [facility] Pharmacy Telepharmacy, [facility] [address] [place] [address] 10/23/2021 Home Visit Family Medicine Fawn Godfrey, Community Health Bead Worker Sewing [address] [place] [address] 11/10/2021 Telemedicine Psychiatry Hugo Alcantara MD [address] [place] [address] 11/11/2021 Office Visit Family Medicine Roger Alexandra MD 132 [place] [address] 07/24/2022 Office Visit Pulmonary Jesus Bonilla MD [address] [place] [address] Scheduled Procedures Name Priority Associated [...] Date/Time Associated Diagnosis Comments OUTSIDE LAB RESULTS 09/16/2021 documented in this encounter Results * OUTSIDE LAB RESULTS (09/16/2021) Specimen Narrative documented in this encounter Advance Directives Documents on File Type Date Recorded Patient Programmer Expl 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 Directive 11/02/2011 12:00 AM Care Teams Account Service Associate Relationship Specialty Start Date End Date Roger Alexandra MD [address] [place] [address] [place] [address] PCP - General Family Medicine 12/29/19 documented as of this encounter
--- OUTSIDE RECORDS SUMMARY | 2023-07-25 04:52 | External Medical Summary ---
Author Name Unknown Address Unknown Organization K0G:[facility] [place] [address] [place] [address] Laboratory Report Ordering Provider Test Date Status SUMAN STANFORD 10/21/2021 10:18:00 Final Observation Date Value Abnormality Reference (Units ) Status PT 10/21/2021 10:18:00 14.4 11.5-14.6 (seconds) Final INR 10/21/2021 10:18:00 1.10 0.84-1.14 Final Performing Location [facility]ORY [place] [address] [place] [address]
--- OUTSIDE RECORDS SUMMARY | 2023-07-25 04:52 | External Medical Summary | Summary of Care ---
Author Name Unknown Organization [facility] Address [place] [address] Care Team Providers Care Supervisor Photostat Name Role Phone Roger Alexandra MD Primary Care Provider +1 -[phone] Reason for Visit * Reason Comments Dosage Adjustment Via Phone (anticoag Cl inic) Encounter Details Date Type Department Care Team Description 09/30/2021 Anticoagulation Pharmacy Call Center 58[address]60 [facility] [place] [address] Telepharmacy, [facility] 58 60 [facility] [address] termination clerk current use of anticoagulant therapy* Allergies Active Allergy Reactions Severity Noted Date Comments Aspirin Unknown 12/12/2007 von Willebrand's disease Salicylates 03/01/2000 von Willebrand's disease documented as of this encounter (statuses as of 09/30/2021) Medications Medication Sig Dispensed Refills Start Date [...] Underwear 32 Each 2 03/18/2021 Active Nystatin 159208 UNIT/GM External Powder (Nystop) 1 harriet, Powder, [...] 0 04/23/2021 Active Vitamin D3 1.25 MG (22111 UT) Oral CapsuleIndications:V itamin D deficiency Take [...] as of this encounter (statuses as of 09/30/2021) Active Problems Problem Noted Date Chronic hypoxemic [...] as of this encounter (statuses as of 09/30/2021) Resolved Problems Problem Noted Date Resolved Date [...] as of this encounter (statuses as of 09/30/2021) Immunizations Name Administration Dates Next Due H1N1 [...] Progress Notes * Kim Mercado RPh - 09/30/2021 2:54 PM EST 09/30/2021 03:18 PM Phone (Outgoing) [place] Kimberly Abhilash (Self) [phone] (M) Remove No Answer/Busy By Kim Mercado RPh unable to reach pt today. Pt scheduled for [facility] visit tomorrow. [facility] will follow up regarding caregiver/ med compliance. Kim Mercado Rph, Pharm.D. Clinical Pharmacist Telepharmacy 09/30/2021,3:19 PM documented in this encounter Plan of Treatment Upcoming Encounters Date Type Specialty Care Team Description 10/01/2021 Home Visit Family Medicine Fawn Godfrey, Community Health Client Support Professional [address] [place] [address] 10/06/2021 Laboratory Laboratory Processing [facility] Mobile Home Draw [address] [place] 10/07/2021 Anticoagulation Pharmacy Telepharmacy, [facility] [address] [place] [address] 11/10/2021 Telemedicine Psychiatry Hugo Alcantara MD [address] [place] [address] 11/11/2021 Office Visit Family Medicine Roger Alexandra MD 132 [place] [address] Scheduled Procedures Name Priority Associated Diagnoses Date/Ti [...] Documents on File Type Date Recorded 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
--- OUTSIDE RECORDS SUMMARY | 2023-07-25 04:52 | External Medical Summary | Summary of Care ---
Author Name Unknown Organization [place] [address] Care Team Providers Care Lead Operator Name Role Phone Jeevan Mclean MD Primary Care Provider +1 [phone] Reason for Visit * Reason Onset Date Comments Medication Refill 10/06/2021 Encounter Details Date Type Department Care Team Description 10/06/2021 Refill Family Practice [facility] [address] [place] [address] Jeevan Mclean MD 132 [facility] [place] [address] Chronic bilateral low back pain without sciatica Allergies Active Allergy Reactions Severity Noted Date Comments Aspirin Unknown 12/12/2007 von Willebrand's disease Salicylates 03/01/2000 von Willebrand's disease documented as of this encounter (statuses as of 10/09/2021) Medications Medication Sig Dispensed Refills Start Date [...] Underwear 32 Each 2 03/18/2021 Active Nystatin 351880 UNIT/GM External Powder (Nystop) 1 harriet, Powder, Topical twice daily, 1 EA, 0 Refill(s), Indication: Candidiasis of Skin, Route to Pharmacy Electronically, [facility] [address], [address], 10/02/20 10:43:00 EST, Height/Length Dosing, cm, 116.3, 10/02/20 10:43:00 EST, Weight Dosing, kg 15 g 1 03/27/2021 Active guaiFENesin-Codein e 100-10 MG/5ML Oral Syrup (Robitussin AC) Take 5 mL by mouth every 4 hours as needed for Cough. 120 mL 0 04/23/2021 Active Vitamin D3 1.25 MG (88806 UT) Oral CapsuleIndications :Vitamin D deficiency Take [...] Pain, Severe. 90 Tablet 0 10/09/2021 Active traMADol HCl 100 MG Oral TabletIndications: Chronic bilateral low back pain without sciatica Take 100 mg by mouth every 8 hours as needed for Pain, Moderate or Pain, Severe. 90 Tab 0 09/09/2021 Discontinue d(Refill) documented as of this encounter (statuses as of 10/09/2021) Active Problems Problem Noted Date Chronic hypoxemic [...] as of this encounter (statuses as of 10/09/2021) Resolved Problems Problem Noted Date Resolved Date [...] as of this encounter (statuses as of 10/09/2021) Immunizations Name Administration Dates Next Due H1N1 [...] Telephone Encounter - Jeevan Mclean MD - 10/09/2021 7:16 PM EST Signed Prescriptions: Disp Refills traMADol HCl 100 MG Oral Tablet 90 Tab*0 Sig: Take 100 mg by mouth every 8 hours as needed for Pain, Moderate or Pain, Severe.Authorizing Provider: JEEVAN MCLEAN * Telephone Encounter - Jeevan Mclean MD - 10/09/2021 7:16 PM EST Signed Prescriptions: Disp Refills traMADol HCl 100 MG Oral Tablet 90 Tab*0 Sig: Take 100 mg by mouth every 8 hours as needed for Pain, Moderate or Pain, Severe. Authorizing Provider: JEEVAN MCLEAN * Telephone Encounter - Cordelia Burns RN - 10/08/2021 10:15 AM EST THIS MAY WAIT FOR DR MCLEAN. Dr Mclean, Last refill was on 09/09. * Telephone Encounter - Cordelia Burns RN - 10/08/2021 10:08 AM EST Spoke with patient advised she started requesting Tramadol on 10/03, and several encounters since. Advised medications was refilled on 09/09. Advised prescriptions is not currently able to be refilled at this time and tomorrow is a holiday. * Telephone Encounter - RUFINA Messina - 10/08/2021 9:55 AM EST Patient calling in to check on the status of previous message. Pt asking if it can be called in this week when it is okay to be refilled. [phone] * Telephone Encounter - Mali Olivares MA - 10/06/2021 9:42 AM EST Patient calling requesting an early refill on Tramadol stating she is out of medication, thank you. documented in this encounter Plan of Treatment Upcoming Encounters Date Type Specialty Care Team Description 10/14/2021 Laboratory Laboratory Processing [facility] [address] [facility] [address] 10/15/2021 [facility] [address] [place] [address] 10/23/2021 Home Visit Family Medicine Fawn Godfrey, Community Health Patient Registration Clerk [address] [place] [address] 11/10/2021 Telemedicine Psychiatry Hugo Alcantara MD [address] [place] [address] 11/11/2021 Office Visit Family Medicine Jeevan Mclean MD [address] [place] [address] 07/24/2022 Office Visit Pulmonary Jesus Bonilla MD [address] [place] [facility] [place] [address] Scheduled Procedures Name Priority Associated Diagnoses [...] Documents on File Type Date Recorded Patient Core Analysis Operator Expl 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 Directive 11/02/2011 12:00 AM Care Teams Lead Operator Relationship Specialty Start Date End Date Jeevan Mclean MD [address] [place] [address] [place] [address] PCP - General Family Medicine 12/29/19 documented as of this encounter
--- OUTSIDE RECORDS SUMMARY | 2023-07-25 04:53 | External Medical Summary | Summary of Care ---
Author Name Unknown Organization [place] [address] Care Team Providers Care Fryer Operator Name Role Phone Jeevan Mclean MD Primary Care Provider [phone] Reason for Visit * Reason Onset Date Comments Medication Refill 09/09/2021 Encounter Details Date Type Department Care Team Description 09/09/2021 Refill Family Practice [facility] [address] [place] [id number] Jeevan Mclean MD 132 [facility] [place] [address] [phone] Chronic bilateral low back pain without sciatica Allergies Active Allergy Reactions Severity Noted Date Comments Aspirin Unknown 12/12/2007 von Willebrand's disease Salicylates 03/01/2000 von Willebrand's disease documented as of this encounter (statuses as of 09/09/2021) Medications Medication Sig Dispensed Refills Start Date [...] Underwear 32 Each 2 03/18/2021 Active Nystatin 287591 UNIT/GM External Powder (Nystop) 1 harriet, Powder, [...] 0 04/23/2021 Active Vitamin D3 1.25 MG (35402 UT) Oral CapsuleIndications :Vitamin D deficiency Take [...] coumadin clinic 180 Tab 1 08/18/2021 Active LORazepam 0.5 MG Oral Tablet (Ativan) Take 1 Tab by mouth 3 times a day as needed for Anxiety. 90 Tab 0 09/09/2021 Active busPIRone HCl 10 MG Oral Tablet (Buspar) Take 1 Tab by mouth 2 times a day. 60 Tab 2 09/08/2021 Active traMADol HCl 100 MG Oral TabletIndications: Chronic bilateral low back pain without sciatica Take 100 mg by mouth every 8 hours as needed for Pain, Moderate or Pain, Severe. 90 Tab 0 09/09/2021 Active traMADol HCl 100 MG Oral TabletIndications: Chronic bilateral low back pain without sciatica Take 100 mg by mouth every 8 hours as needed for Pain, Moderate or Pain, Severe. 90 Tab 0 08/12/2021 09/09/2021 Discontinue d(Refill) documented as of this encounter (statuses as of 09/09/2021) Active Problems Problem Noted Date Chronic hypoxemic [...] as of this encounter (statuses as of 09/09/2021) Resolved Problems Problem Noted Date Resolved Date [...] as of this encounter (statuses as of 09/09/2021) Immunizations Name Administration Dates Next Due H1N1 [...] are not covered by insurance Alcohol Use Drinks/Week oz/Week Comments No Food Insecurity Answer Date Recorded Within the past 12 months, y ou worried that your food would run out before you got money to buy more. Never true Within the past 12 months, t he food you bought just didn't last and you didn't have money to get more. Never true Sex Assigned at Date Recorded Not on file Job Start Date Occupation Industry Not on file Not on file Not on file documented as of this encounter Miscellaneous Notes * Telephone Encounter - Jeevan Mclean MD - 09/09/2021 10:19 AM EDT Signed Prescriptions: Disp Refills traMADol HCl 100 MG Oral Tablet 90 Tab 0 Sig: Take 100 mg by mouth every 8 hours as needed for Pain, Moderate or Pain, Severe. Authorizing Provider: JEEVAN MCLEAN * Telephone Encounter - [facility] - 09/09/2021 10:07 AM EDT Pending Prescriptions: Disp Refills traMADol HCl 100 MG Oral Tablet 90 Tab 0 Sig: Take 100 mg by mouth every 8 hours as needed for Pain, Moderate or Pain, Severe. * Telephone Encounter - [facility] - 09/09/2021 10:07 AM EDT I have reviewed the patients controlled substance dispensing history in the Prescription Drug Monitoring Program in compliance with the [facility] regulations before prescribing a controlled substance. PDMP checked on 09/09/2021. Pending Prescriptions: Disp Refills traMADol HCl 100 MG Oral Tablet 90 Tab 0 Sig: Take 100 mg by mouth every 8 hours as needed for Pain, Moderate or Pain, Severe. Last Office/Telemedicine Visit: 06/12/2021 Next Office Visit: 09/24/2021 Scheduled Provider(s): Jeevan Mclean MD Date medication was last filled: 08/13/2021 Date medication is due for refill: 09/10/2021 Pharmacy: [facility] [address] Is this request for a controlled [...] Review. Please approve if appropriate. Thank you, [facility] Clinical Pharmacist Telepharmacy [phone] 09/09/2021, 10:07 AM * Telephone Encounter - Shaye Parikh PHARM Tech - 09/09/2021 10:00 AM EDT Pt will be out in morning. Pending Prescriptions: Disp Refills traMADol HCl 100 MG Oral Tablet 90 Tab 0 Sig: Take 100 mg by mouth every 8 hours as needed for Pain, Moderate or Pain, Severe. Last Office/Telemedicine Visit: 06/12/2021 Next Office Visit: 09/24/2021 Scheduled Provider(s): Jeevan Mclean MD If no future appointments scheduled, and last appointment is greater than a year ago, please schedule patient for a follow-up appointment Last date the medication was ordered: 08/12/2021 Pharmacy: [facility] [address] Is this request for a controlled [...] 0.66 12/29/2019 10:22 AM LDLCALC 99 09/25/2015 LDLCALC 123 05/01/2011 11:39 AM LDLDIRECT 138 (H) 02/14/2015 09:27 AM ALT 6 (L) 12/29/2019 10:22 AM HGBA1C 5.7 04/19/2014 12:08 PM documented in this encounter Plan of Treatment Upcoming Encounters Date Type Specialty Care Team Description 09/15/2021 Laboratory Laboratory Processing [facility] [place] [facility] Mobile Home Draw [address] [place] [address] [phone] 09/16/2021 Anticoagulation Pharmacy Telepharmacy, [facility] [address] [facility] [place] [address] [phone] 09/24/2021 Office Visit Pulmonary Jesus Bonilal MD [address] [place] [address] [phone] 09/24/2021 Office Visit Family Medicine Jeevan Mclean MD [address] [facility] [place] [address] [phone] 09/29/2021 Telemedicine Psychiatry Hugo Alcantara MD [address] [facility] [place] [address] Health Maintenance Due Date Last Done Comments COVID-19 Vaccine (1) 1972 Zoster Vaccines (1 of 2) 2010 *DEPRESSION SCREENING,ANNUAL FOR PTS 12 AND OVER 04/11/2015 BREAST CANCER SCREENING DISCUSSION YEARLY AGES 40-75 10/28/2016 10/28/2015, 04/27/2014, 05/12/2013, Additional history exists DTaP,Tdap,and Td Vaccines (2 - Td) 06/27/2018 06/27/2008 LIPID SCREEN EVERY 5 YRS-WOMEN [...] Documents on File Type Date Recorded Patient Threshing Machine Operator Expl anation Advanced Directive service a yohana default Advanced Directive Advanced Directive Advanced Directive Advanced Directive Advanced Directive Advanced Directive Advanced Directive Advanced Directive Advanced Directive Advanced Directive 11/02/2011 12:00 AM Advanced Directive Advanced Directive Advanced Directive Advanced [...]
--- OUTSIDE RECORDS SUMMARY | 2023-07-25 04:53 | External Medical Summary | Summary of Care ---
Author Name Unknown Organization [facility] Address [place] [address] Care Team Providers Care Epidemiologist Name Role Phone Roger Alexandra MD Primary Care Provider [phone] Reason for Visit * Reason Comments Scheduling Encounter Details Date Type Department Care Team Description 09/23/2021 Anticoagulation Pharmacy Call Center [address] [facility] [place] [address] [facility] [address] [facility] [address] Anticoagulation management encounter* Allergies Active Allergy Reactions Severity Noted Date Comments Aspirin Unknown 12/12/2007 von Willebrand's disease Salicylates 03/01/2000 von Willebrand's disease documented as of this encounter (statuses as of 09/23/2021) Medications Medication Sig Dispensed Refills Start Date [...] Underwear 32 Each 2 03/18/2021 Active Nystatin 732565 UNIT/GM External Powder (Nystop) 1 harriet, Powder, [...] 0 04/23/2021 Active Vitamin D3 1.25 MG (13400 UT) Oral CapsuleIndications:Vi tamin D deficiency Take [...] as of this encounter (statuses as of 09/23/2021) Active Problems Problem Noted Date Chronic hypoxemic [...] as of this encounter (statuses as of 09/23/2021) Resolved Problems Problem Noted Date Resolved Date [...] as of this encounter (statuses as of 09/23/2021) Immunizations Name Administration Dates Next Due H1N1 [...] encounter Progress Notes * RUFINA Nicholson - 09/23/2021 7:54 AM EST Please draw pt's INR 09/25. Ordered by Kim Mo. Thank you documented in this encounter Plan of Treatment Upcoming Encounters Date Type Specialty Care Team Description 09/24/2021 Office Visit Pulmonary [facility] [address] [facility] [place] [address] 09/24/2021 Office Visit Family Medicine Roger Alexandra MD 132 [facility] [place] [address] 09/26/2021 [facility] [address] [place] [address] 09/29/2021 Telemedicine Psychiatry Hugo Alcantara MD [address] [place] [address] Scheduled Procedures Name Priority Associated [...] on File Type Date Recorded Patient Environmental Science Technician Expl 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 Advanced Directive 11/02/2011 12:00 AM Care Teams Epidemiologist Relationship Specialty Start Date End Date Roger Alexandra MD 132 [facility] [place] [id number] PCP - General Family Medicine 12/29/19 documented as of this encounter
--- OUTSIDE RECORDS SUMMARY | 2023-07-25 04:53 | External Medical Summary | Summary of Care ---
Author Name Unknown Organization [place] [address] Care Team Providers Care Printed Circuit Photographer Name Role Phone Roger Alexandra MD Primary Care Provider [phone] Reason for Visit * Reason Onset Date Comments Fax 08/18/2021 [facility] Status Check 08/18/2021 [facility] Encounter Details Date Type Department Care Team Description 08/18/2021 Telephone Family Practice [facility] [address] [place] [address] Roger Alexandra MD 132 [facility] [place] [address] Fax ([facility] ); Status Check (Pathe... Allergies Active Allergy Reactions Severity Noted Date Comments Aspirin Unknown 12/12/2007 von Willebrand's disease Salicylates 03/01/2000 von Willebrand's disease documented as of this encounter (statuses as of 09/04/2021) Medications Medication Sig Dispensed Refills Start Date [...] LEG SWELLING) 30 Tab 2 02/09/2021 Active busPIRone HCl 10 MG Oral Tablet (Buspar) Take 1 Tab by mouth 2 times a day. 60 Tab 2 03/05/2021 Active Disposable Brief X-LargeIndications:Ov eractive bladder Attends X-Large Super Absorb Underwear 32 Each 2 03/18/2021 Active Nystatin 963146 UNIT/GM External Powder (Nystop) 1 harriet, Powder, Topical twice daily, 1 EA, 0 Refill(s), Indication: Candidiasis of Skin, Route to Pharmacy Electronically, [facility] [address], [address], 10/02/20 10:43:00 EST, Height/Length Dosing, cm, 116.3, 10/02/20 10:43:00 EST, Weight Dosing, kg 15 g 1 03/27/2021 Active guaiFENesin-Codeine 100-10 MG/5ML Oral Syrup (Robitussin AC) Take 5 mL by mouth every 4 hours as needed for Cough. 120 mL 0 04/23/2021 Active Vitamin D3 1.25 MG (37814 UT) Oral CapsuleIndications:Vi tamin D deficiency Take [...] the morning. 30 Cap 2 06/18/2021 Active traMADol HCl 100 MG Oral TabletIndications:Chr onic bilateral low back pain without sciatica Take 100 mg by mouth every 8 hours as needed for Pain, Moderate or Pain, Severe. 90 Tab 0 08/12/2021 Active LORazepam 0.5 MG Oral Tablet (Ativan) Take 1 Tab by mouth 3 times a day as needed for Anxiety. 90 Tab 0 08/12/2021 Active Warfarin Sodium 5 MG Oral Tablet (Coumadin)Indications :Paroxysmal atrial fibrillation (HCC) Take 1.5-2 Tabs by mouth daily. As directed by coumadin clinic 180 Tab 1 08/18/2021 Active documented as of this encounter (statuses as of 09/04/2021) Active Problems Problem Noted Date Chronic hypoxemic [...] as of this encounter (statuses as of 09/04/2021) Resolved Problems Problem Noted Date Resolved Date [...] as of this encounter (statuses as of 09/04/2021) Immunizations Name Administration Dates Next Due H1N1 [...] Telephone Encounter - Roger Alexandra MD - 08/29/2021 1:39 PM EDT Signed form * Telephone Encounter - Eboni Benitez OSA - 08/29/2021 10:41 AM EDT Cole calling again asking for Dr. Alexandra's signature on the paper work. cole stating she wants this before the weekend Please call Cole and daysie * Telephone Encounter - Narcisa Spence OSA - 08/28/2021 11:28 AM EDT Yordan is calling from [facility] to make sure the paperwork was received, it looks like it was,she needs this completed MARKELL and faxed back so they can do the testing. * Telephone Encounter - Angela May MED ASSIST - 08/28/2021 8:30 AM EDT Received forms and placed on Dr. Alexandra's desk. * Telephone Encounter - Roger Alexandra MD - 08/27/2021 4:01 PM EDT No. * Telephone Encounter - Gisel Vernon OSA - 08/27/2021 2:40 PM EDT Cole calling in to check on the status of previous message. Asking for a call back from office as she has faxed a few times and asking if office has received any forms or if there is an alternated way to get them to office. Please return call [phone] * Telephone Encounter - Deon Araiza OSA - 08/26/2021 2:50 PM EDT Cole calling to check on the status of previous messages. Forms were faxed again yesterday morningto [phone]; please confirm whether or not fax was received. Thanks. Callback#: [phone] * Telephone Encounter - Ciera Medley OSA - 08/22/2021 9:14 AM EDT Received a call asking if fax was received by office. Name/Company sending fax: Cole [employer] What fax is pertaining to: Cardiac Genetic Testing , 6 pages Date(s) they sent request: 08/20/2021 Verified fax number they are sending to is correct (Y or N): Y Callback Number for the clinic to call to verified if fax was received: [phone] * Telephone Encounter - Ciera Medley OSA - 08/20/2021 2:33 PM EDT Received a call asking if fax was received by office. Name/Company sending fax: Cole from [facility] What fax is pertaining to: Cardiac Genetic test Date(s) they sent request: 08/19/2021 Verified fax number they are sending to is correct (Y or N): N , I just provided correct fax # on this call Callback Number for the clinic to call to verified if fax was received: [phone] * Telephone Encounter - Kim De Guzman LPN - 08/18/2021 12:07 PM EDT Pt says that she did the MyCode testing a couple of months ago and that someone from [employer] called her just now and was asking her questions about heart history and family heart history. They are to fax our office what they talked to pt about. I told pt that we will wait and see what they fax us and review it and go from there, and we cannot do anything further until these findings are faxed to us. Pt states understanding. Awaiting mycode information. documented in this encounter Plan of Treatment Upcoming Encounters Date Type Specialty Care Team Description 09/05/2021 [facility] [address] [place] [address] [phone] 09/24/2021 Office Visit Pulmonary Jesus Bonilla MD [address] [place] [address] 09/24/2021 Office Visit Family Medicine Roger Alexandra MD [address] [place] [address] 09/29/2021 Telemedicine Psychiatry Hugo Alcantara MD [address] [place] [address] Health Maintenance Due Date Last Done [...] Documents on File Type Date Recorded Patient Aeronautical Drafter Expl 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
--- OUTSIDE RECORDS SUMMARY | 2023-07-25 04:53 | External Medical Summary | Summary of Care ---
Author Name Unknown Organization [place] [address] Care Team Providers Care Harvest Field Ticketer Name Role Phone Roger Alexandra MD Primary Care Provider [phone] Reason for Visit * Reason Onset Date Comments case management 09/29/2021 CM FU Encounter Details Date Type Department Care Team Description 09/29/2021 Church Official Telephone Family Practice [facility] [address] [place] [address] Cordelia Burns, RN 132 [facility] [place] [address] case management (CM FU) Allergies Active Allergy [...] Underwear 32 Each 2 03/18/2021 Active Nystatin 004670 UNIT/GM External Powder (Nystop) 1 harriet, Powder, [...] 0 04/23/2021 Active Vitamin D3 1.25 MG (76812 UT) Oral CapsuleIndications:V itamin D deficiency Take [...] Telephone Encounter - Cordelia Burns RN - 09/29/2021 1:00 PM EST SITUATION: "Did my granddaughter call you?" BACKGROUND: COPD. No show for appts. ASSESSMENT: Pt's granddaughter, clarice called earlier for "Juan Pablo's" phone number for the client care manager services, advised her that I do not have his phone number, ? If through [employer] and provided that phone number. Granddaughter reports that caregivers have quit. Appreciative of phone number. Pt called later in the day. She tells me that she did not make her appt last week with Dr Ibrahima lino not having a caregiver, last week she told me that she didn't know she had an appt. States that her family all work and she needs an evening appt with provider. Scheduled for November 11 at 6 PM, she will work on securing transportation with her family. Discussed county transportation, states that she will not be able to get out to the vehicle. Advised that physicians do not make house calls, states I know we are not in the 1800's. States she is without a caregiver, advised to contact "Juan Pablo", states she has his phone number, advised her granddaughter called me looking for his number since patient did not have it. States she has someone coming to the house Wednesday, but doesn't know who it is. EMERSON is scheduled tovisit on Wednesday. RECOMMENDATION: Advised to reach out to "Juan Pablo" regarding caregivers. Advised to discuss transportation with family now for appt in October. Cordelia Burns RN (Kori), BSN, [facility] Smooth More Leija Church Official [phone] documented in this encounter Plan of Treatment Upcoming Encounters Date Type Specialty Care Team Description 09/29/2021 [facility] [address] [place] [address] 10/01/2021 Home Visit Family Medicine Fawn God[facility], [facility] [address] [place], [place] [id number] 11/10/2021 Telemedicine Psychiatry Hugo Alcantara MD [address] [place] [address] 11/11/2021 Office Visit Family Medicine Roger Alexandra MD [address] [place] [address] Scheduled Procedures Name Priority Associated Diagnoses Date/Ti [...] Documents on File Type Date Recorded Patient Kiln Pusher Expl 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 Advanced Directive 11/02/2011 12:00 AM Care Teams Harvest Field Ticketer Relationship Specialty Start Date End Date Roger Alexandra MD [address] [place] [address] [place] [address] PCP - General Family Medicine 12/29/19 documented as of this encounter
--- OUTSIDE RECORDS SUMMARY | 2023-07-25 04:53 | External Medical Summary ---
Author Name Unknown Address Unknown Organization [facility] [address] [place] [address] Laboratory Report Ordering Provider Test Date Status SUMAN STANFORD 09/04/2021 10:05:00 Final Observation Date Value Abnormality Reference (Units ) Status PT 09/04/2021 10:05:00 16.5 Above high normal 11 .5-14.6 (seconds) Final INR 09/04/2021 10:05:00 1.31 Above high normal 0. 84-1.14 Final Performing Location [facility] [place] [address] [place] [address]
--- OUTSIDE RECORDS SUMMARY | 2023-07-25 04:53 | External Medical Summary | Summary of Care ---
Author Name Unknown Organization [place] [address] Care Team Providers Care Toe Former Stitchdowns Name Role Phone Roger Alexandra MD Primary Care Provider [phone] Reason for Visit * Reason Onset Date Comments case management 09/25/2021 CM FU Encounter Details Date Type Department Care Team Description 09/25/2021 Teacher Assistant Telephone Family Practice [facility] [address] [place] [address] Cordelia Burns, RN 132 [facility] [place] [address] case management (CM FU) Allergies Active Allergy Reactions Severity Noted Date Comments Aspirin Unknown 12/12/2007 von Willebrand's disease Salicylates 03/01/2000 von Willebrand's disease documented as of this encounter (statuses as of 09/25/2021) Medications Medication Sig Dispensed Refills Start Date [...] Underwear 32 Each 2 03/18/2021 Active Nystatin 895777 UNIT/GM External Powder (Nystop) 1 harriet, Powder, [...] 0 04/23/2021 Active Vitamin D3 1.25 MG (47497 UT) Oral CapsuleIndications:Vi tamin D deficiency Take [...] as of this encounter (statuses as of 09/25/2021) Active Problems Problem Noted Date Chronic hypoxemic [...] as of this encounter (statuses as of 09/25/2021) Resolved Problems Problem Noted Date Resolved Date [...] as of this encounter (statuses as of 09/25/2021) Immunizations Name Administration Dates Next Due H1N1 [...] Telephone Encounter - Cordelia Burns RN - 09/25/2021 1:47 PM EST SITUATION: "I am so sick." BACKGROUND: Pt was a no show for PCP and Pulmonary appt yesterday and no show for mobile lab today. PMH: COPD, sleep apnea; drug seeking behavior noted for 2019. ASSESSMENT: Weakness for 3 days. Always has diarrhea Headache for the last 2 days. Tylenol not helping. Took a tramadol this AM, has not helped much. On top of her head and down back of next and shoulders. TV blasting in the background. Couldn't tell me if she has SOB or not. States she is on oxygen 4 l/min No appetite. No sick or Covid + contacts. Drinking pepsi, single bottles, doesn't know how many she drinks maybe 4 or 5. Uses a walker. States she is afraid to leave her home. Family transports to appts, states that caregiver could bring her as well if she is able to get into her vehicle. Caregivers is there 3 days a week. RECOMMENDATION: Advise to increase water intake and limit pepsi that she is drinking. Discussed Tramadol every 8 hours to help with headache Advised office visit or ER if unable to come to the office. Offered to reschedule appts. She will need to discuss with family. Does not use county transportation. Will refer to [facility] for home visit. 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 Will not qualify for HH services without updated visit. Advised patient that I would work to schedule an appt even on the weekend if needed for her family to bring her to the office. Asked how else I could help her as each suggestion I give she has a reason/excuse to not be able tocomplete. Cordelia Burns RN (Kori), BSN, [facility] Teacher Assistant [phone] documented in this encounter Plan of Treatment Upcoming Encounters Date Type Specialty Care Team Description 09/26/2021 [facility] [address] [place] [address] 09/29/2021 Telemedicine Psychiatry Hugo Alcantara MD [address] [place] [address] Scheduled Procedures Name Priority Associated [...] Documents on File Type Date Recorded Patient Casket Trimmer Expl 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 Advanced Directive 11/02/2011 12:00 AM Care Teams Toe Former Stitchdowns Relationship Specialty Start Date End Date Roger Alexandra MD [address] [facility] [place] [address] PCP - General Family Medicine 12/29/19 documented as of this encounter
--- OUTSIDE RECORDS SUMMARY | 2023-07-25 04:53 | External Medical Summary ---
Author Name Unknown Address Unknown Organization K0G:[facility] [address] [place] [address] Laboratory Report Ordering Provider Test Date Status SUMAN STANFORD 09/15/2021 10:38:00 Final Observation Date Value Abnormality Reference (Units ) Status PT 09/15/2021 10:38:00 14.6 11.5-14.6 (seconds) Final INR 09/15/2021 10:38:00 1.12 0.84-1.14 Final Performing Location [facility] [address] [place] [address]
--- OUTSIDE RECORDS SUMMARY | 2023-07-25 04:53 | External Medical Summary | Summary of Care ---
Author Name Unknown Organization [facility] Address [place] [address] Care Team Providers Care Top And Seat Cover Fitter Name Role Phone Roger Alexandra MD Primary Care Provider [phone] Reason for Visit * Reason Comments Scheduling Encounter Details Date Type Department Care Team Description 09/26/2021 Anticoagulation Pharmacy Call Center 58-60 [facility] [place] [address] [facility] [address] [place] [address] Anticoagulation management encounter* Allergies Active Allergy Reactions Severity Noted Date Comments Aspirin Unknown 12/12/2007 von Willebrand's disease Salicylates 03/01/2000 von Willebrand's disease documented as of this encounter (statuses as of 09/26/2021) Medications Medication Sig Dispensed Refills Start Date [...] Underwear 32 Each 2 03/18/2021 Active Nystatin 145503 UNIT/GM External Powder (Nystop) 1 harriet, Powder, [...] 0 04/23/2021 Active Vitamin D3 1.25 MG (84891 UT) Oral CapsuleIndications:Vi tamin D deficiency Take [...] as of this encounter (statuses as of 09/26/2021) Active Problems Problem Noted Date Chronic hypoxemic [...] as of this encounter (statuses as of 09/26/2021) Resolved Problems Problem Noted Date Resolved Date [...] as of this encounter (statuses as of 09/26/2021) Immunizations Name Administration Dates Next Due H1N1 [...] encounter Progress Notes * RUFINA Nicholson - 09/26/2021 7:49 AM EST Please draw pt's INR Saturday 09/29. Ordered by Kim Mo. 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
--- OUTSIDE RECORDS SUMMARY | 2023-07-25 04:53 | External Medical Summary | Summary of Care ---
Author Name Unknown [place] [address] Care Team Providers Care Federal District Law Clerk Name Role Phone Roger Alexandra MD Primary Care Provider [phone] Encounter Details Date Type Department Care Team Description 09/29/2021 Telemedicine Psychiatry, [address] [address] Hugo Alcantara MD [address] [place] [address] Major depressive disorder, recurrent episode, moderate (HCC)* Allergies Active Allergy Reactions Severity Noted [...] Underwear 32 Each 2 03/18/2021 Active Nystatin 920760 UNIT/GM External Powder (Nystop) 1 harriet, Powder, [...] 0 04/23/2021 Active Vitamin D3 1.25 MG (29378 UT) Oral CapsuleIndications :Vitamin D deficiency Take [...] for Anxiety. 90 Tablet 1 10/08/2021 Active LORazepam 0.5 MG Oral Tablet (Ativan) Take 1 Tab by mouth 3 times a day as needed for Anxiety. 90 Tab 0 09/09/2021 Discontinue d(Refill) documented [...] Progress Notes * Hugo Alcantara MD - 09/29/2021 11:28 AM EST After connecting through [employer], patient was verified with two unique identifiers. Patient (or authorized legal technical account representative) was then informed that this was a Telemedicine visit and being conducted confidentially over secure lines. Methods to assure confidentiality were taken. Patient acknowledged consent and understanding of privacy and security of the Telemedicine visit. The patient agreed to participate. PSYCHOTHERAPY & MEDICATION MANAGEMENT RETURN VISIT NOTE Psychiatry, Zaheer Gordon [address] [facility] [address] 08/18/2021 Kimberly Kendall CHIEF COMPLAINT: medication management INTERVAL HISTORY: she states she has been "not good". She continues that her most recent caregiver "quit on me". She states she feels "the same". Does not feel anything has changed. She states she can't sleep. She states she misses her . She states is very lonely. She comments "I feel like adog chained up outside waiting for someone to come along". We discuss therapy and she becomes upsetstating "I don't see the point". She state she wants "to take something to help me calm down". OBJECTIVE DATA: COLUMBIA-SUICIDE SEVERITY RATING SCALE Have [...] PAST PSYCHIATRIC, MEDICAL, FAMILY OR SOCIAL HX: reviewed per HPI CURRENT MEDS: Current Outpatient Medications Medication Sig [...] Super Absorb Underwear 32 Each 2 Nystatin 887731 UNIT/GM External Powder (Nystop) 1 harriet, Powder, Topical twice daily, 1 EA, 0 Refill(s), Indication: Candidiasis of Skin, Route to Pharmacy Electronically, [facility] [address], 160, 10/02/20 10:43:00 EST, Height/Length Dosing, cm, 116.3, 10/02/20 10:43:00 EST, Weight Dosing, kg 15 g 1 guaiFENesin-Codeine 100-10 MG/5ML Oral Syrup (Robitussin AC) Take 5 mL by mouth every 4 hours as needed for Cough. 120 mL 0 Vitamin D3 1.25 MG (27711 UT) Oral Capsule Take 1 Cap by [...] directed by coumadin clinic 180 Tab 1 LORazepam 0.5 MG Oral Tablet (Ativan) Take 1 Tab by mouth 3 times a day as needed for Anxiety. 90 Tab 0 busPIRone HCl 10 MG Oral Tablet (Buspar) Take 1 Tab by mouth 2 times a day. 60 Tab 2 traMADol HCl 100 MG Oral Tablet Take 100 mg by mouth every 8 hours as needed for Pain, Moderateor Pain, Severe. 90 Tab 0 No current facility-administered medications for this [...] good Judgment: good FORMULATION: Kimberly Kendall is i86kowg old female with presenting symptoms ofdepression, anxiety, [...] Drug Monitoring Program in compliance with the [facility] regulations before prescribing a controlled substance. -- increase trazodone to 150mg qHS -- cont Prozac 40mg qday -- cont Ativan 0.5mg TID -- cont Buspar 10mg BID -- recommend therapy RTC: 6 weeks - Crisis planning-- Kimberly Abhilash Enoch has been provided with Psychiatry emergency telephone [...] documenting clinical information. > 17 minutes spent counseling time over and above medication management was spent with patient discussing self care and providing supportive therapy Hugo Alcantara MD Psychiatry Attending 09/29/2021 documented in this encounter Plan of Treatment Upcoming Encounters Date Type Specialty Care Team Description 09/29/2021 [facility] 58 [address] [place] [address] 10/01/2021 Home Visit Family Medicine Fawn Godfrey, Community Health Sheriff Sergeant [address] [place] [address] 11/10/2021 Telemedicine Psychiatry Hugo Alcantara MD [address] [place] [address] 11/11/2021 Office Visit Family Medicine Roger Alexandra MD [address] [place] [address] Scheduled Procedures Name Priority Associated Diagnoses Date/Ti [...] of this encounter Visit Diagnoses Diagnosis Major depressive disorder, recurrent episode, moderate (HCC)- Primary Major depressive disorder, recurrent episode, moderate documented in this encounter Advance Directives Documents on File Type Date Recorded Patient Intrusion Analyst Expl 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 Advanced Directive 11/02/2011 12:00 AM Care Teams Federal District Law Clerk Relationship Specialty Start Date End Date Roger Alexandra MD 132 [facility] [place] [address] PCP - General Family Medicine 12/29/19 documented as of this encounter
--- OUTSIDE RECORDS SUMMARY | 2023-07-25 04:53 | External Medical Summary | Summary of Care ---
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* Allergies Active Allergy Reactions Severity Noted Date Comments Aspirin Unknown 12/12/2007 von Willebrand's disease Salicylates 03/01/2000 von Willebrand's disease documented as of this encounter (statuses as of 09/05/2021) Medications Medication Sig Dispensed Refills Start Date [...] Underwear 32 Each 2 03/18/2021 Active Nystatin 099869 UNIT/GM External Powder (Nystop) 1 harriet, Powder, [...] 0 04/23/2021 Active Vitamin D3 1.25 MG (17500 UT) Oral CapsuleIndications:Vi tamin D deficiency Take [...] as of this encounter (statuses as of 09/05/2021) Active Problems Problem Noted Date Chronic hypoxemic [...] as of this encounter (statuses as of 09/05/2021) Resolved Problems Problem Noted Date Resolved Date [...] as of this encounter (statuses as of 09/05/2021) Immunizations Name Administration Dates Next Due H1N1 [...] of this encounter Progress Notes * Luis aNva CPhT - 09/05/2021 12:10 PM EDT Contacts Type Contact Phone 09/05/2021 12:09 PM EDT Phone (Outgoing) Kimberly Kendall (Self) [phone] (M) Left Message Advised patient to contact Anticoagulation Clinic if any unusual bruising or bleeding, recent illness, changes in medication, or questions/concerns. PT/INR results, Coumadin dose instructions, and next PT/INR date communicated as noted by Pharmacist: Yes Luis Nava CPhT 09/05/2021, 12:10 PM * Kim Mercado RPh - 09/05/2021 10:32 AM EDT Images from the original note were not included. Coumadin Clinic (region specific) Current Warfarin Dose As of 09/05/2021 Warfarin maintenance plan: 10 mg (5 mg x 2) every Mon, Fri; 7.5 mg (5 mg x 1 and 2.5 mg x 1) all other days INR Result As of 09/05/2021 INR goal: 2.0-3.0 INR used for dosin.31 (09/04/2021) Warfarin Plan As of 09/05/2021 Full warfarin instructions: 09/05: 20 mg; Otherwise 10 mg every Mon, Fri; 7.5 mg all other days Next INR check: 09/15/2021 Repeat PT/INR in 1.5 week(s) Weekly dose: not changed Additional Dosing Information: Description [facility] Tech to contact patient with dose instructions as noted. Kim Mercado RPh 09/05/2021, 10:35 AM documented in this encounter Plan of Treatment Upcoming Encounters Date Type Specialty Care Team Description 09/16/2021 Anticoagulation Pharmacy Telepharmacy, [facility] 58 60 [facility] [address] [phone] 09/24/2021 Office Visit Pulmonary Jesus Bonilla MD [address] [place] [id number] 09/24/2021 Office Visit Family Medicine Roger Alexandra MD 132 [facility] [place] [address] 09/29/2021 Telemedicine Psychiatry Hugo Alcantara MD [address] [place] [address] Health Maintenance Due Date Last [...] of this encounter Visit Diagnoses Diagnosis 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
--- OUTSIDE RECORDS SUMMARY | 2023-07-25 04:53 | External Medical Summary | Summary of Care ---
Author Name Unknown Organization [place] [address] Care Team Providers Care Bell Person Name Role Phone Roger Alexandra MD Primary Care Provider [phone] [phone] Reason for Visit * Reason Onset Date Comments Medication Refill 09/12/2021 Encounter Details Date Type Department Care Team Description 09/12/2021 Telephone Psychiatry, [facility] [address] [place], [place] [id number] Hugo Alcantara MD [address] [place] [address] Medication Refill Allergies Active Allergy Reactions Severity Noted Date Comments Aspirin Unknown 12/12/2007 von Willebrand's disease Salicylates 03/01/2000 von Willebrand's disease documented as of this encounter (statuses as of 09/12/2021) Medications Medication Sig Dispensed Refills Start Date [...] Underwear 32 Each 2 03/18/2021 Active Nystatin 670355 UNIT/GM External Powder (Nystop) 1 harriet, Powder, [...] 0 04/23/2021 Active Vitamin D3 1.25 MG (69235 UT) Oral CapsuleIndications:Vi tamin D deficiency Take [...] as of this encounter (statuses as of 09/12/2021) Active Problems Problem Noted Date Chronic hypoxemic [...] as of this encounter (statuses as of 09/12/2021) Resolved Problems Problem Noted Date Resolved Date [...] as of this encounter (statuses as of 09/12/2021) Immunizations Name Administration Dates Next Due H1N1 [...] Care Team Description 09/15/[address] [facility], [facility] Mobile Home Draw [address] [place] [address] [phone] 09/16/2021 [facility] 58 60 [place] [address] [phone] 09/24/2021 Office Visit Pulmonary Jesus Bonilla MD [address] [place] [place] [address] 09/24/2021 Office Visit Family Medicine Roger Alexandra MD [address] [place] [address] [phone] 09/29/2021 Telemedicine Psychiatry Hugo Alcantara MD [address] [place] [address] Health Maintenance Due Date Last [...] Documents on File Type Date Recorded Patient Statistics Intern Expl 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
--- OUTSIDE RECORDS SUMMARY | 2023-07-25 04:53 | External Medical Summary | Summary of Care ---
Author Name Unknown Organization [place] [address] Care Team Providers Care Psychiatry Resident Name Role Phone Roger Alexandra MD Primary Care Provider [phone] [phone] Reason for Visit * Reason Onset Date Comments Appointment 09/24/2021 Encounter Details Date Type Department Care Team Description 09/24/2021 Telephone Psychiatry, [facility] [address] [place] [address] Hugo Alcantara MD [address] [facility] [place], [place] [address] Appointment Allergies Active Allergy Reactions Severity Noted Date Comments Aspirin Unknown 12/12/2007 von Willebrand's disease Salicylates 03/01/2000 von Willebrand's disease documented as of this encounter (statuses as of 09/24/2021) Medications Medication Sig Dispensed Refills Start Date [...] Underwear 32 Each 2 03/18/2021 Active Nystatin 463205 UNIT/GM External Powder (Nystop) 1 harriet, Powder, [...] 0 04/23/2021 Active Vitamin D3 1.25 MG (80080 UT) Oral CapsuleIndications:Vi tamin D deficiency Take [...] as of this encounter (statuses as of 09/24/2021) Active Problems Problem Noted Date Chronic hypoxemic [...] as of this encounter (statuses as of 09/24/2021) Resolved Problems Problem Noted Date Resolved Date [...] as of this encounter (statuses as of 09/24/2021) Immunizations Name Administration Dates Next Due H1N1 [...] * Telephone Encounter - RUFINA Holder - 09/24/2021 11:50 AM EST Called patient to verify date/time/location, demographics and insurance for upcoming appointment. If call is returned and patient needs to change demographics or insurance please transfer to [phone]. If patient has scheduling concerns please transfer to [phone]. documented in this encounter Plan of Treatment Upcoming Encounters Date Type Specialty Care Team Description 09/24/2021 Office Visit Pulmonary Jesus Bonilla MD [address] [place], [place] [address] 09/24/2021 Office Visit Family Medicine Roger Alexandra MD [address] [place] [address] 09/25/2021 Laboratory Laboratory Processing [facility], [facility] Mobile Home Draw [address] [place] [address] 09/26/2021 [facility] 58 [address] [place] [address] 09/29/2021 Telemedicine Psychiatry Hugo Alcantara MD [address] [place] [address] Scheduled Procedures Name Priority Associated [...] on File Type Date Recorded 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
--- OUTSIDE RECORDS SUMMARY | 2023-07-25 04:53 | External Medical Summary ---
Author Name Unknown Address Unknown Organization K0G:[facility] [place] [address] [place] [address] Laboratory Report Ordering Provider Test Date Status SUMAN STANFORD 09/29/2021 09:41:00 Final Observation Date Value Abnormality Reference (Units ) Status PT 09/29/2021 09:41:00 13.3 11.5-14.6 (seconds) Final INR 09/29/2021 09:41:00 0.99 0.84-1.14 Final Performing Location [facility] [place] [address] [place] [id number]
--- OUTSIDE RECORDS SUMMARY | 2023-07-25 04:53 | External Medical Summary | Summary of Care ---
Author Name Unknown Organization [place] [address] Care Team Providers Care Specialty Person Name Role Phone Roger Alexandra MD Primary Care Provider [phone] [phone] Reason for Visit * Reason Onset Date Comments Fax 08/18/2021 [facility] Status Check 08/18/2021 [facility] Encounter Details Date Type Department Care Team Description 08/18/2021 Telephone Family Practice [facility] [address] [place] [address] Roger Alexandra MD 132 [facility] [place] [address] Fax ([facility] ); Status Check (Pathe... Allergies Active Allergy Reactions Severity Noted Date Comments Aspirin Unknown 12/12/2007 von Willebrand's disease Salicylates 03/01/2000 von Willebrand's disease documented as of this encounter (statuses as of 09/03/2021) Medications Medication Sig Dispensed Refills Start Date [...] Underwear 32 Each 2 03/18/2021 Active Nystatin 035610 UNIT/GM External Powder (Nystop) 1 harriet, Powder, [...] 0 04/23/2021 Active Vitamin D3 1.25 MG (95300 UT) Oral CapsuleIndications:Vi tamin D deficiency Take [...] as of this encounter (statuses as of 09/03/2021) Active Problems Problem Noted Date Chronic hypoxemic [...] as of this encounter (statuses as of 09/03/2021) Resolved Problems Problem Noted Date Resolved Date [...] as of this encounter (statuses as of 09/03/2021) Immunizations Name Administration Dates Next Due H1N1 [...] get them to office. Please return call [phone] * Telephone Encounter - Deon Araiza OSA - 08/26/2021 2:50 PM EDT Cole calling to check on the status of previous messages. Forms were faxed again yesterday morningto [phone]; please confirm whether or not fax was received. Thanks. Callback#: [phone] * Telephone Encounter - Ciera Medley OSA - 08/22/2021 9:14 AM EDT Received a call asking if fax was received by office. Name/Company sending fax: [email or web address] What fax is pertaining to: Cardiac Genetic Testing , 6 pages Date(s) they sent request: 08/20/2021 Verified fax number they are sending to is correct (Y or N): Y Callback Number for the clinic to call to verified if fax was received: [phone] * Telephone Encounter - Ciera Medley OSA - 08/20/2021 2:33 PM EDT Received a call asking if fax was received by office. Name/Company sending fax: Cloe from [employer] What fax is pertaining to: Cardiac Genetic test Date(s) they sent request: 08/19/2021 Verified fax number they are sending to is correct (Y or N): N , I just provided correct fax # on this call Callback Number for the clinic to call to verified if fax was received: [phone] * Telephone Encounter - Kim De Guzman LPN - 08/18/2021 12:07 PM EDT Pt says that she did the My[employer] testing a couple of months ago and that someone from [employer] called her just now and was asking [...] Encounters Date Type Specialty Care Team Description 09/04/2021 Laboratory Laboratory Processing [facility], [facility] Mobile Home Draw [address] [place], [place] [address] 09/05/2021 Anticoagulation Pharmacy Telepharmacy, [facility] [address] [place] [address] [phone] 09/24/2021 Office Visit Pulmonary Jesus Bonilla MD [address] [place], [place] [address] 09/24/2021 Office Visit Family Medicine Roger Alexandra MD [address] [place] [address] [phone] 09/29/2021 Telemedicine Psychiatry Hugo Alcantara MD [address] [place] [address] Health Maintenance Due Date Last [...] Documents on File Type Date Recorded Patient Hedis Review Nurse Expl 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
--- OUTSIDE RECORDS SUMMARY | 2023-07-25 04:53 | External Medical Summary | Summary of Care ---
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* Allergies Active Allergy Reactions Severity Noted Date Comments Aspirin Unknown 12/12/2007 von Willebrand's disease Salicylates 03/01/2000 von Willebrand's disease documented as of this encounter (statuses as of 09/15/2021) Medications Medication Sig Dispensed Refills Start Date [...] Underwear 32 Each 2 03/18/2021 Active Nystatin 155503 UNIT/GM External Powder (Nystop) 1 harriet, Powder, [...] 0 04/23/2021 Active Vitamin D3 1.25 MG (43074 UT) Oral CapsuleIndications:Vi tamin D deficiency Take [...] as of this encounter (statuses as of 09/15/2021) Active Problems Problem Noted Date Chronic hypoxemic [...] as of this encounter (statuses as of 09/15/2021) Resolved Problems Problem Noted Date Resolved Date [...] as of this encounter (statuses as of 09/15/2021) Immunizations Name Administration Dates Next Due H1N1 [...] Progress Notes * Luis Nava CPhT - 09/15/2021 3:47 PM EDT Contacts Type Contact Phone 09/15/2021 03:45 PM EDT Phone (Outgoing) Enoch Kimberly Abhilash (Self) [phone] (M) Patient Findings Negatives: Signs/symptoms of thrombosis, [...] noted by Pharmacist: Yes Luis Nava CPhT 09/15/2021, 3:47 PM * Kim Mercado RPh - 09/15/2021 12:46 PM EDT Images from the original note were not included. Coumadin Clinic (region specific) Current Warfarin Dose As of 09/15/2021 Warfarin maintenance plan: 10 mg (5 mg x 2) every Mon, Fri; 7.5 mg (5 mg x 1 and 2.5 mg x 1) all other days INR Result As of 09/15/2021 INR goal: 2.0-3.0 INR used for dosin.12 (09/15/2021) Warfarin Plan As of 09/15/2021 Full warfarin instructions: 09/15: 15 mg; 09/16: 15 mg; Otherwise 10 mg every Mon, Christian[place], Fri; 7.5 mg all other days Next INR check: 09/22/2021 Repeat PT/INR in 1 week(s) Weekly dose: increased Additional Dosing Information: Description GML Tech to contact patient with dose instructions as noted. Kim Mercado RPh 09/15/2021, 12:47 PM documented in this encounter Plan of Treatment Upcoming Encounters Date Type Specialty Care Team Description 09/22/2021 Laboratory Laboratory Processing [facility], [facility] Mobile Home Draw [address] [place] [address] [phone] 09/23/2021 [facility] [address] [place] [address] [phone] 09/24/2021 Office Visit Pulmonary Jesus Bonilla MD [address] [place] [address] 09/24/2021 Office Visit Family Medicine Roger Alexandra MD [address] [place] [address] 09/29/2021 Telemedicine Psychiatry Hugo Alcantara MD [address] [place] [address] Health Maintenance Due Date Last [...] of this encounter Visit Diagnoses Diagnosis 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
--- OUTSIDE RECORDS SUMMARY | 2023-07-25 04:54 | External Medical Summary | Summary of Care ---
Author Name Unknown Organization [place] [address] Care Team Providers Care Electric Welder Helper Name Role Phone Roger Alexandra MD Primary Care Provider +1 -[phone] Reason for Visit * Reason Onset Date Comments Fax 08/18/2021 [facility] Status Check 08/18/2021 [facility] Encounter Details Date Type Department Care Team Description 08/18/2021 Telephone Family Practice [facility] [address] [place] [address] Roger Alexandra MD 132 [facility] [place] [address] Fax ([facility] ); Status Check (Pathe... Allergies Active Allergy Reactions Severity Noted Date Comments Aspirin Unknown 12/12/2007 von Willebrand's disease Salicylates 03/01/2000 von Willebrand's disease documented as of this encounter (statuses as of 08/27/2021) Medications Medication Sig Dispensed Refills Start Date [...] Underwear 32 Each 2 03/18/2021 Active Nystatin 790322 UNIT/GM External Powder (Nystop) 1 harriet, Powder, [...] 0 04/23/2021 Active Vitamin D3 1.25 MG (55521 UT) Oral CapsuleIndications:Vi tamin D deficiency Take [...] as of this encounter (statuses as of 08/27/2021) Active Problems Problem Noted Date Chronic hypoxemic [...] as of this encounter (statuses as of 08/27/2021) Resolved Problems Problem Noted Date Resolved Date [...] 02/04/2006 12/21/2008 Atrial septal aneurysm 02/04/2006 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 Please return call [phone] * Telephone Encounter - Deon Araiza OSA - 08/26/2021 2:50 PM EDT Cole calling to check on the status of previous messages. Forms were faxed again yesterday morningto [phone]; please confirm whether or not fax was received. Thanks. Callback#: [phone] * Telephone Encounter - Ciera Medley OSA - 08/22/2021 9:14 AM EDT Received a call asking if fax was received by office. Name/Company sending fax: [facility] [employer] What fax is pertaining to: Cardiac Genetic Testing , 6 pages Date(s) they sent request: 08/20/2021 Verified fax number they are sending to is correct (Y or N): Y Callback Number for the clinic to call to verified if fax was received: [phone] * Telephone Encounter - Ciera Medley OSA - 08/20/2021 2:33 PM EDT Received a call asking if fax was received by office. Name/Company sending fax: Cole from [facility] What fax is pertaining to: Cardiac Genetic test Date(s) they sent request: 08/19/2021 Verified fax number they are sending to is correct (Y or N): N , I just provided correct fax # on this call Callback Number for the clinic to call to verified if fax was received: [phone] * Telephone Encounter - Kim De Guzman LPN - 08/18/2021 12:07 PM EDT Pt says that she did the MyCode testing a couple of months ago and that someone from [employer] called her just now and was asking [...] faxed to us. Pt states understanding. Awaiting Stand Offer information. documented in this encounter Plan of Treatment Upcoming Encounters Date Type Specialty Care Team Description 08/28/2021 Laboratory Laboratory Processing [facility] Draw [address] [facility] [place] [address] [phone] 08/29/2021 [facility] [address] [facility] [place] [address] [phone] 09/24/2021 Office Visit Pulmonary Jesus Bonilla MD [address] [facility] [place] [address] [phone] 09/29/2021 Telemedicine Psychiatry Hugo Alcantara MD [address] [place] [address] [phone] Health Maintenance Due Date Last Done Comments [...] Documents on File Type Date Recorded Patient Stone Setter Metal Optical Frames Expl 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
--- OUTSIDE RECORDS SUMMARY | 2023-07-25 04:54 | External Medical Summary | Summary of Care ---
Author Name Unknown Organization [place] [address] Care Team Providers Care Complex Care Nurse Name Role Phone Roger Alexandra MD Primary Care Provider [phone] [phone] Reason for Visit * Reason Onset Date Comments Fax 08/18/2021 [facility] Status Check 08/18/2021 [facility] Encounter Details Date Type Department Care Team Description 08/18/[address] [facility] [address] [place] [address] Roger Alexandra MD 132 [facility] [place] [address] Fax ([facility] ); Status Check (Pathe... Allergies Active Allergy Reactions Severity Noted Date Comments Aspirin Unknown 12/12/2007 von Willebrand's disease Salicylates 03/01/2000 von Willebrand's disease documented as of this encounter (statuses as of 08/29/2021) Medications Medication Sig Dispensed Refills Start Date [...] Underwear 32 Each 2 03/18/2021 Active Nystatin 345977 UNIT/GM External Powder (Nystop) 1 harriet, Powder, [...] 0 04/23/2021 Active Vitamin D3 1.25 MG (84149 UT) Oral CapsuleIndications:Vi tamin D deficiency Take [...] as of this encounter (statuses as of 08/29/2021) Active Problems Problem Noted Date Chronic hypoxemic [...] as of this encounter (statuses as of 08/29/2021) Resolved Problems Problem Noted Date Resolved Date [...] as of this encounter (statuses as of 08/29/2021) Immunizations Name Administration Dates Next Due H1N1 [...] EDT Cole calling again asking for Dr. Aleaxndra's signature on the paper work. cole stating [...] get them to office. Please return call [phone] * Telephone Encounter - Deon Araiza OSA - 08/26/2021 2:50 PM EDT Cole calling to check on the status of previous messages. Forms were faxed again yesterday morningto [phone]; please confirm whether or not fax was received. Thanks. Callback#: [phone] * Telephone Encounter - Ciera Medley OSA - 08/22/2021 9:14 AM EDT Received a call asking if fax was received by office. Name/Company sending fax: [facility] [employer] What fax is pertaining to: Cardiac Genetic Testing , 6 pages Date(s) they sent request: 08/20/2021 Verified fax number they are sending to is correct (Y or N): Y Callback Number for the clinic to call to verified if fax was received: [phone] * Telephone Encounter - Ciera Medley OSA - 08/20/2021 2:33 PM EDT Received a call asking if fax was received by office. Name/Company sending fax: Cole from [facility] What fax is pertaining to: Cardiac Genetic test Date(s) they sent request: 08/19/2021 Verified fax number they are sending to is correct (Y or N): N , I just provided correct fax # on this call Callback Number for the clinic to call to verified if fax was received: [phone] * Telephone Encounter - Kim De Guzman LPN - 08/18/2021 12:07 PM EDT Pt says that she did the MyCode testing a couple of months ago and that someone from [employer] called her just now and was asking [...] Encounters Date Type Specialty Care Team Description 09/01/2021 Laboratory Laboratory Processing [facility] Mobile Home Draw [address] [place], [place] [address] 09/02/2021 Anticoagulation Pharmacy Telepharmacy, [facility] [address] [place] [address] [phone] 09/24/2021 Office Visit Pulmonary Jesus Bonilla MD [address] [place], [place] [id number] 09/24/2021 Office Visit Family Medicine Roger Alexandra MD [address] [place] [address] [phone] 09/29/2021 Telemedicine Psychiatry Hugo Alcantara MD [address] [place] [address] Health Maintenance Due Date Last [...] Documents on File Type Date Recorded Patient Taping Supervisor Expl 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
--- OUTSIDE RECORDS SUMMARY | 2023-07-25 04:54 | External Medical Summary | Summary of Care ---
Author Name Unknown Organization [facility] Address [place] [address] Care Team Providers Care Development Planner Name Role Phone Roger Alexandra MD Primary Care Provider [phone] Reason for Visit * Reason Comments Scheduling Encounter Details Date Type Department Care Team Description 09/02/2021 Anticoagulation Pharmacy Call Center [address] [place] [address] [facility] [address] [facility] [place] [address] [phone] Anticoagulation management encounter* Allergies Active Allergy Reactions Severity Noted Date Comments Aspirin Unknown 12/12/2007 von Willebrand's disease Salicylates 03/01/2000 von Willebrand's disease documented as of this encounter (statuses as of 09/02/2021) Medications Medication Sig Dispensed Refills Start Date [...] Underwear 32 Each 2 03/18/2021 Active Nystatin 977187 UNIT/GM External Powder (Nystop) 1 harriet, Powder, [...] 0 04/23/2021 Active Vitamin D3 1.25 MG (07289 UT) Oral CapsuleIndications:Vi tamin D deficiency Take [...] as of this encounter (statuses as of 09/02/2021) Active Problems Problem Noted Date Chronic hypoxemic [...] as of this encounter (statuses as of 09/02/2021) Resolved Problems Problem Noted Date Resolved Date [...] 12/21/2008 Atrial septal aneurysm 02/04/2006 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 Ordered by Kim Mercado. Thank you Antonina Nava documented in this encounter Plan of Treatment Upcoming Encounters Date Type Specialty Care Team Description 09/05/2021 Anticoagulation Pharmacy Telepharmacy, [facility] [address] [place] [address] [phone] 09/24/2021 Office Visit Pulmonary Jesus Bonilla MD [address] [facility] [place] [address] 09/24/2021 Office Visit Family Medicine Roger Alexandra MD 132 [place] [address] 09/29/2021 Telemedicine Psychiatry Hugo Alcantara MD [address] [place] [address] Health Maintenance Due Date Last [...] Documents on File Type Date Recorded Patient Control Inspector Expl 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
--- OUTSIDE RECORDS SUMMARY | 2023-07-25 04:54 | External Medical Summary | Summary of Care ---
Author Name Unknown Organization [facility] Address [place] [address] Care Team Providers Care State Editor Name Role Phone Roger Alexandra MD Primary Care Provider +1 -[phone] Reason for Visit * Reason Comments Dosage Adjustment Via Phone (anticoag Cl inic) Encounter Details Date Type Department Care Team Description 08/29/2021 Anticoagulation Pharmacy Call Center [address] [facility] [place] [address] Telepharmacy, [facility] [address] [facility] [place] [address] [phone] relief cook current use of anticoagulant therapy* Allergies Active [...] Underwear 32 Each 2 03/18/2021 Active Nystatin 005929 UNIT/GM External Powder (Nystop) 1 harriet, Powder, [...] 0 04/23/2021 Active Vitamin D3 1.25 MG (57731 UT) Oral CapsuleIndications:Vi tamin D deficiency Take [...] 02/04/2006 12/21/2008 Atrial septal aneurysm 02/04/2006 9 relief cook current use of anticoagulant therapy 0 06/01/2005 [...] Progress Notes * Kim Mercado RPh - 08/29/2021 9:41 AM EDT Medication Therapy Disease Management - Anticoagulation Patient: Kimberly Kendall : 1960 Pt cancelled GML today, will reschedule for Saturday 09/01 Current Warfarin Dose As of 08/29/2021 Warfarin maintenance plan: 10 mg (5 mg x 2) every Mon, Fri; 7.5 mg (5 mg x 1 and 2.5 mg x 1) all other days Patient-Reported Symptoms: INR Result As of 08/29/2021 INR goal: 2.0-3.0 INR used for dosing: No new INR was available at the time of this encounter. Warfarin Plan As of 08/29/2021 Full warfarin instructions: 10 mg every Mon, Fri; 7.5 mg all other days Next INR check: 09/01/2021 Additional Dosing Information: Description GM Repeat PT/INR in 3 day(s) Weekly dose: not changed Kim Mercado RPh Clinical Pharmacist 08/29/2021, 9:41 AM * Joanna Linn OSA - 08/29/2021 7:[address] [facility] patient canceled lab apt yesterday and requested a day next week Follow up for results documented in this encounter Plan of Treatment Upcoming Encounters Date Type Specialty Care Team Description 09/01/2021 Laboratory Laboratory Processing [facility] [address] [facility] [address] [phone] 09/02/2021 Anticoagulation Pharmacy [facility] [address] [facility] [place] [address] [phone] 09/24/2021 Office Visit Pulmonary Jesus Bonilla MD [address] [facility] [address] [phone] 09/29/2021 Telemedicine Psychiatry Hugo Alcantara MD [address] [facility] [place] [address] Health Maintenance Due Date [...] as of this encounter Visit Diagnoses Diagnosis longterm current use of anticoagulant therapy- Primary documented in this encounter Advance Directives Documents on File Type Date Recorded Patient Desk Clerks Supervisor Expl 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
--- OUTSIDE RECORDS SUMMARY | 2023-07-25 04:54 | External Medical Summary | Summary of Care ---
Author Name Unknown Organization [place] [address] Care Team Providers Care Residential Nurse Name Role Phone Roger Alexandra MD Primary Care Provider +1 [phone] Reason for Visit * Reason Onset Date Comments Fax 08/18/2021 [facility] Status Check 08/18/2021 [facility] Encounter Details Date Type Department Care Team Description 08/18/2021 Telephone Family Practice [facility] [address] [place] [address] Roger Alexandra MD 132 [facility] [place] [address] Fax ([facility] ); Status Check (Pathe... Allergies Active Allergy Reactions Severity Noted Date Comments Aspirin Unknown 12/12/2007 von Willebrand's disease Salicylates 03/01/2000 von Willebrand's disease documented as of this encounter (statuses as of 08/28/2021) Medications Medication Sig Dispensed Refills Start Date [...] Underwear 32 Each 2 03/18/2021 Active Nystatin 436394 UNIT/GM External Powder (Nystop) 1 harriet, Powder, [...] 0 04/23/2021 Active Vitamin D3 1.25 MG (57603 UT) Oral CapsuleIndications:Vi tamin D deficiency Take [...] as of this encounter (statuses as of 08/28/2021) Active Problems Problem Noted Date Chronic hypoxemic [...] as of this encounter (statuses as of 08/28/2021) Resolved Problems Problem Noted Date Resolved Date [...] as of this encounter (statuses as of 08/28/2021) Immunizations Name Administration Dates Next Due H1N1 [...] get them to office. Please return call [phone] * Telephone Encounter - Deon Araiza OSA - 08/26/2021 2:50 PM EDT Cole calling to check on the status of previous messages. Forms were faxed again yesterday morningto [phone]; please confirm whether or not fax was received. Thanks. Callback#: [phone] * Telephone Encounter - Ciera Medley OSA - 08/22/2021 9:14 AM EDT Received a call asking if fax was received by office. Name/Company sending fax: [facility] [employer] What fax is pertaining to: Cardiac Genetic Testing , 6 pages Date(s) they sent request: 08/20/2021 Verified fax number they are sending to is correct (Y or N): Y Callback Number for the clinic to call to verified if fax was received: [phone] * Telephone Encounter - Ciera Medley OSA - 08/20/2021 2:33 PM EDT Received a call asking if fax was received by office. Name/Company sending fax: Cole from [facility] What fax is pertaining to: Cardiac Genetic test Date(s) they sent request: 08/19/2021 Verified fax number they are sending to is correct (Y or N): N , I just provided correct fax # on this call Callback Number for the clinic to call to verified if fax was received: [phone] * Telephone Encounter - Kim De Guzman LPN - 08/18/2021 12:07 PM EDT Pt says that she did the MyCode testing a couple of months ago and that someone from [employer] called her just now and was asking [...] Encounters Date Type Specialty Care Team Description 08/29/2021 [facility] [address] [facility] [address] [phone] 09/24/2021 Office Visit Pulmonary [facility] [address] [facility] [address] [phone] 09/29/2021 Telemedicine Psychiatry Hugo Alcantara MD [address] [facility] [place] [address] Health Maintenance Due [...] Documents on File Type Date Recorded Patient Prenatal Teacher Expl 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
--- OUTSIDE RECORDS SUMMARY | 2023-07-25 04:54 | External Medical Summary | Summary of Care ---
Author Name Unknown Organization [place] [address] Care Team Providers Care Dairy Farmworker Name Role Phone Roger Alexandra MD Primary Care Provider [phone] Reason for Visit * Reason Onset Date Comments Fax 08/18/2021 [facility] Status Check 08/18/2021 [facility] Encounter Details Date Type Department Care Team Description 08/18/2021 Telephone Family Practice [facility] [address] [place] [address] Roger Alexandra MD 132 [facility] [place] [address] Fax ([facility] GX [...] Underwear 32 Each 2 03/18/2021 Active Nystatin 550171 UNIT/GM External Powder (Nystop) 1 harriet, Powder, [...] 0 04/23/2021 Active Vitamin D3 1.25 MG (32280 UT) Oral CapsuleIndications:Vi tamin D deficiency Take [...] encounter Miscellaneous Notes * Telephone Encounter - Narcisa Spence OSA - 08/28/2021 11:28 AM EDT Yordan is calling from [employer] [facility] to make sure the paperwork was [...] get them to office. Please return call [phone] * Telephone Encounter - Deon Araiza OSA - 08/26/2021 2:50 PM EDT Cole calling to check on the status of previous messages. Forms were faxed again yesterday morningto [phone]; please confirm whether or not fax was received. Thanks. Callback#: [phone] * Telephone Encounter - Ciera Medley OSA - 08/22/2021 9:14 AM EDT Received a call asking if fax was received by office. Name/Company sending fax: [facility] [employer] What fax is pertaining to: Cardiac Genetic Testing , 6 pages Date(s) they sent request: 08/20/2021 Verified fax number they are sending to is correct (Y or N): Y Callback Number for the clinic to call to verified if fax was received: [phone] * Telephone Encounter - Ciera Medley OSA - 08/20/2021 2:33 PM EDT Received a call asking if fax was received by office. Name/Company sending fax: Ocle from [employer] [facility] What fax is pertaining to: Cardiac Genetic test Date(s) they sent request: 08/19/2021 Verified fax number they are sending to is correct (Y or N): N , I just provided correct fax # on this call Callback Number for the clinic to call to verified if fax was received: [phone] * Telephone Encounter - Kim De Guzman LPN - 08/18/2021 12:07 PM EDT Pt says that she did the MyCode testing a couple of months ago and that someone from [employer] called her just now and was asking [...] Encounters Date Type Specialty Care Team Description 09/02/2021 [facility] [address] [facility] [place] [address] [phone] 09/24/2021 Office Visit Pulmonary Jesus Bonilla MD [address] [place] [id number] 09/29/2021 Telemedicine Psychiatry Hugo Alcantara MD [address] [facility] [place] [address] Health Maintenance Due [...] Documents on File Type Date Recorded Patient Report Developer Expl 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
--- OUTSIDE RECORDS SUMMARY | 2023-07-25 04:54 | External Medical Summary | Summary of Care ---
Author Name Unknown Organization [place] [address] Care Team Providers Care Latex Fashions Designer Name Role Phone Roger Alexandra MD Primary Care Provider [phone] Reason for Visit * Reason Onset Date Comments Fax 08/18/2021 [facility] Status Check 08/18/2021 [facility] Encounter Details Date Type Department Care Team Description 08/18/2021 Telephone Family Practice [facility] [address] [place] [address] Roger Alexadnra MD 132 [facility] [place] [address] [...] Underwear 32 Each 2 03/18/2021 Active Nystatin 278830 UNIT/GM External Powder (Nystop) 1 harriet, Powder, [...] 0 04/23/2021 Active Vitamin D3 1.25 MG (95785 UT) Oral CapsuleIndications:Vi tamin D deficiency Take [...] get them to office. Please return call [phone] * Telephone Encounter - Deon Araiza OSA - 08/26/2021 2:50 PM EDT Cole calling to check on the status of previous messages. Forms were faxed again yesterday morningto [phone]; please confirm whether or not fax was received. Thanks. Callback#: [phone] * Telephone Encounter - Ciera Medley OSA - 08/22/2021 9:14 AM EDT Received a call asking if fax was received by office. Name/Company sending fax: Cole [employer] What fax is pertaining to: Cardiac Genetic Testing , 6 pages Date(s) they sent request: 08/20/2021 Verified fax number they are sending to is correct (Y or N): Y Callback Number for the clinic to call to verified if fax was received: [phone] * Telephone Encounter - Ciera Medley OSA - 08/20/2021 2:33 PM EDT Received a call asking if fax was received by office. Name/Company sending fax: Cole from [employer] [facility] What fax is pertaining to: Cardiac Genetic test Date(s) they sent request: 08/19/2021 Verified fax number they are sending to is correct (Y or N): N , I just provided correct fax # on this call Callback Number for the clinic to call to verified if fax was received: [phone] * Telephone Encounter - Kim De Guzman LPN - 08/18/2021 12:07 PM EDT Pt says that she did the MyCode testing a couple of months ago and that someone from [employer] called her just now and was asking [...] Care Team Description 09/01/2021 Laboratory Laboratory Processing [facility] Mobile Home Draw [address] [place], [place] [id number] 09/02/2021 Anticoagulation Pharmacy Telepharmacy, [facility] [address] [place] [address] [phone] 09/24/2021 Office Visit Pulmonary Jesus Bonilla MD [address] [place], [place] [address] 09/24/2021 Office Visit Family Medicine Roger Alexandra MD [address] [place] [address] [phone] 09/29/2021 Telemedicine Psychiatry Hugo Alcantara MD [address] [place] [address] Health Maintenance Due Date Last [...] Documents on File Type Date Recorded Patient Extrusion Press Adjuster Expl 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
--- OUTSIDE RECORDS SUMMARY | 2023-07-25 04:54 | External Medical Summary | Summary of Care ---
Author Name Unknown Organization [place] [address] Care Team Providers Care Hand Assembler Name Role Phone Roger Alexandra MD Primary Care Provider [phone] [phone] Reason for Visit * Reason Onset Date Comments Fax 08/18/2021 [facility] Status Check 08/18/2021 [facility] Encounter Details Date Type Department Care Team Description 08/18/2021 Telephone Family Practice [facility] [address] [place] [address] Roger Alexandra MD 132 [facility] [place] [address] Fax ([facility] GX Lab [...] Underwear 32 Each 2 03/18/2021 Active Nystatin 627103 UNIT/GM External Powder (Nystop) 1 harriet, Powder, [...] 0 04/23/2021 Active Vitamin D3 1.25 MG (65320 UT) Oral CapsuleIndications:Vi tamin D deficiency Take [...] 02/04/2006 12/21/2008 Atrial septal aneurysm 02/04/2006 9 hand pattern marker current use of anticoagulant therapy 0 06/01/2005 [...] Miscellaneous Notes * Telephone Encounter - Gisel Vernon OSA - 08/27/2021 2:40 PM EDT Cole calling in to check on the status of previous message. Asking for a call back from office as she has faxed a few times and asking if office has received any forms or if there is an alternated way to get them to office. Please return call [phone] * Telephone Encounter - Deon Araiza OSA - 08/26/2021 2:50 PM EDT Cole calling to check on the status of previous messages. Forms were faxed again yesterday morningto [phone]; please confirm whether or not fax was received. Thanks. Callback#: [phone] * Telephone Encounter - Ciera Medley OSA - 08/22/2021 9:14 AM EDT Received a call asking if fax was received by office. Name/Company sending fax: Cole Miller [employer] What fax is pertaining to: Cardiac Genetic Testing , 6 pages Date(s) they sent request: 08/20/2021 Verified fax number they are sending to is correct (Y or N): Y Callback Number for the clinic to call to verified if fax was received: [phone] * Telephone Encounter - Ciera Medley OSA - 08/20/2021 2:33 PM EDT Received a call asking if fax was received by office. Name/Company sending fax: Cole from [facility] What fax is pertaining to: Cardiac Genetic test Date(s) they sent request: 08/19/2021 Verified fax number they are sending to is correct (Y or N): N , I just provided correct fax # on this call Callback Number for the clinic to call to verified if fax was received: [phone] * Telephone Encounter - Kim De Guzman LPN - 08/18/2021 12:07 PM EDT Pt says that she did the MyCode testing a couple of months ago and that someone from [employer] called her just now and was asking [...] Care Team Description 08/28/[address] [facility] [address] [place] [address] [phone] 08/29/2021 [facility] [address] [place] [address] [phone] 09/24/2021 Office Visit Pulmonary Jesus Bonilla MD [address] [place], [place] [phone] 09/29/2021 Telemedicine Psychiatry Hugo Alcantara MD [address] [place] [address] [phone] Health Maintenance Due Date Last Done Comments [...] Documents on File Type Date Recorded Patient Traffic Worker Expl 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
--- OUTSIDE RECORDS SUMMARY | 2023-07-25 04:54 | External Medical Summary | Summary of Care ---
Author Name Unknown Organization [place] [address] Care Team Providers Care Making Line Worker Name Role Phone Roger Alexandra MD Primary Care Provider [phone] Reason for Visit * Reason Onset Date Comments Fax 08/18/2021 [facility] Status Check 08/18/2021 [facility] Encounter Details Date Type Department Care Team Description 08/18/2021 Telephone Family Practice [facility] [address] [place] [address] Roger Alexandra MD 132 [facility] [place] [address] Fax (Pathema GX [...] Underwear 32 Each 2 03/18/2021 Active Nystatin 313548 UNIT/GM External Powder (Nystop) 1 harriet, Powder, [...] 0 04/23/2021 Active Vitamin D3 1.25 MG (38705 UT) Oral CapsuleIndications:Vi tamin D deficiency Take [...] 11:28 AM EDT Yordan is calling from [facility] [facility] to make sure the paperwork was [...] get them to office. Please return call [phone] * Telephone Encounter - Deon Araiza OSA - 08/26/2021 2:50 PM EDT Cole calling to check on the status of previous messages. Forms were faxed again yesterday morningto [phone]; please confirm whether or not fax was received. Thanks. Callback#: [phone] * Telephone Encounter - Ciera Medley OSA - 08/22/2021 9:14 AM EDT Received a call asking if fax was received by office. Name/Company sending fax: Cole [employer] What fax is pertaining to: Cardiac Genetic Testing , 6 pages Date(s) they sent request: 08/20/2021 Verified fax number they are sending to is correct (Y or N): Y Callback Number for the clinic to call to verified if fax was received: [phone] * Telephone Encounter - Ciera Medley OSA - 08/20/2021 2:33 PM EDT Received a call asking if fax was received by office. Name/Company sending fax: Cole from [facility] What fax is pertaining to: Cardiac Genetic test Date(s) they sent request: 08/19/2021 Verified fax number they are sending to is correct (Y or N): N , I just provided correct fax # on this call Callback Number for the clinic to call to verified if fax was received: [phone] * Telephone Encounter - Kim De Guzman LPN - 08/18/2021 12:07 PM EDT Pt says that she did the MyCode testing a couple of months ago and that someone from [employer] called her just now and was asking [...] Date Type Specialty Care Team Description 08/29[facility]20[facility] [address] [facility] [place] [address] [phone] 09/24/2021 Office Visit Pulmonary Jesus Bonilla MD [address] [place] [id number] 09/29/2021 Telemedicine Psychiatry Hugo Alcantara MD [address] [facility] [place] [address] Health Maintenance Due [...] Documents on File Type Date Recorded Patient Data Processing Control Clerk Expl 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
--- OUTSIDE RECORDS SUMMARY | 2023-07-25 04:54 | External Medical Summary | Summary of Care ---
Author Name Unknown Organization [place] [address] Care Team Providers Care Douper Name Role Phone Roger Alexandra MD Primary Care Provider [phone] Reason for Visit * Reason Onset Date Comments Fax 08/18/2021 [facility] Status Check 08/18/2021 [facility] Encounter Details Date Type Department Care Team Description 08/18/2021 Telephone Family Practice [facility] [address] [place] [address] Roger Alexandra MD 132 [facility] [place] [address] Fax (Pathema [...] Underwear 32 Each 2 03/18/2021 Active Nystatin 527842 UNIT/GM External Powder (Nystop) 1 harriet, Powder, [...] 0 04/23/2021 Active Vitamin D3 1.25 MG (28829 UT) Oral CapsuleIndications:Vi tamin D deficiency Take [...] encounter Miscellaneous Notes * Telephone Encounter - Eboni Benitez OSA - 08/29/2021 10:41 AM EDT Cole calling again asking for Dr. Alexandra's signature on the paper work. cole stating she wants this before the weekend Please call Cole and delmy * Telephone Encounter - Narcisa Spence OSA - 08/28/2021 11:28 AM EDT Yordan is calling from [facility] [employer] to make sure the paperwork was [...] get them to office. Please return call [phone] * Telephone Encounter - Deon Araiza OSA - 08/26/2021 2:50 PM EDT Cole calling to check on the status of previous messages. Forms were faxed again yesterday morningto [phone]; please confirm whether or not fax was received. Thanks. Callback#: [phone] * Telephone Encounter - iCera Medley OSA - 08/22/2021 9:14 AM EDT Received a call asking if fax was received by office. Name/Company sending fax: Cole Miller [employer] What fax is pertaining to: Cardiac Genetic Testing , 6 pages Date(s) they sent request: 08/20/2021 Verified fax number they are sending to is correct (Y or N): Y Callback Number for the clinic to call to verified if fax was received: [phone] * Telephone Encounter - Ciera Medley OSA - 08/20/2021 2:33 PM EDT Received a call asking if fax was received by office. Name/Company sending fax: Cole from [facility] What fax is pertaining to: Cardiac Genetic test Date(s) they sent request: 08/19/2021 Verified fax number they are sending to is correct (Y or N): N , I just provided correct fax # on this call Callback Number for the clinic to call to verified if fax was received: [phone] * Telephone Encounter - Kim De Guzman LPN - 08/18/2021 12:07 PM EDT Pt says that she did the MyCode testing a couple of months ago and that someone from [employer] called her just now and was asking [...] Care Team Description 09/01/2021 Laboratory Laboratory Processing [facility] [address] [place], [place] [id number] 09/02/2021 [facility] [address] [place] [address] [phone] 09/24/2021 Office Visit Pulmonary IreneJesus MD [address] [place], [place] [phone] 09/29/2021 Telemedicine Psychiatry Hugo Alcantara MD [address] [place] [address] Health Maintenance Due Date Last [...] Documents on File Type Date Recorded Patient Dough Mixer Expl 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
--- OUTSIDE RECORDS SUMMARY | 2023-07-25 04:54 | External Medical Summary | Summary of Care ---
Author Name Unknown Organization [place] [address] Care Team Providers Care Head Refrigeration Engineer Name Role Phone Roger Alexandra MD Primary Care Provider [phone] Reason for Visit * Reason Onset Date Comments Fax 08/18/2021 [facility] Status Check 08/18/2021 [facility] Encounter Details Date Type Department Care Team Description 08/18/2021 Telephone Family Practice [facility] [address] [place] [address] Roger Alexandra MD 132 [facility] [place] [address] Fax (Pathema [...] Underwear 32 Each 2 03/18/2021 Active Nystatin 522854 UNIT/GM External Powder (Nystop) 1 harriet, Powder, [...] 0 04/23/2021 Active Vitamin D3 1.25 MG (82520 UT) Oral CapsuleIndications:Vi tamin D deficiency Take [...] get them to office. Please return call [phone] * Telephone Encounter - Deon Araiza OSA - 08/26/2021 2:50 PM EDT Cole calling to check on the status of previous messages. Forms were faxed again yesterday morningto [phone]; please confirm whether or not fax was received. Thanks. Callback#: [phone] * Telephone Encounter - Ciera Medley OSA - 08/22/2021 9:14 AM EDT Received a call asking if fax was received by office. Name/Company sending fax: Cole Miller [email or web address] What fax is pertaining to: Cardiac Genetic Testing , 6 pages Date(s) they sent request: 08/20/2021 Verified fax number they are sending to is correct (Y or N): Y Callback Number for the clinic to call to verified if fax was received: [phone] * Telephone Encounter - Ciera Medley OSA - 08/20/2021 2:33 PM EDT Received a call asking if fax was received by office. Name/Company sending fax: Cole from [facility] What fax is pertaining to: Cardiac Genetic test Date(s) they sent request: 08/19/2021 Verified fax number they are sending to is correct (Y or N): N , I just provided correct fax # on this call Callback Number for the clinic to call to verified if fax was received: [phone] * Telephone Encounter - Kim De Guzman LPN - 08/18/2021 12:07 PM EDT Pt says that she did the MyCode testing a couple of months ago and that someone from [employer] called her just now and was asking [...] faxed to us. Pt states understanding. Awaiting [employer] information. documented in this encounter Plan of Treatment Upcoming Encounters Date Type Specialty Care Team Description 08/28/2021 Laboratory Laboratory Processing [facility] Draw [address] [facility] [place] [address] [phone] 08/29/2021 [facility] [address] [facility] [place] [address] [phone] 09/24/2021 Office Visit Pulmonary Jesus Bonilla MD [address] [facility] [place] [address] [phone] 09/29/2021 Telemedicine Psychiatry Hugo Alcantara MD [address] [place] [address] [phone] Health Maintenance Due Date Last Done Comments [...] Documents on File Type Date Recorded Patient Law Examiner Expl 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
--- OUTSIDE RECORDS SUMMARY | 2023-07-25 04:54 | External Medical Summary | Summary of Care ---
Author Name Unknown Organization [place] [address] Care Team Providers Care Children'S Ministry Director Name Role Phone Roger Alexandra MD Primary Care Provider [phone] Reason for Visit * Reason Onset Date Comments case management 08/28/2021 [facility] Encounter Details Date Type Department Care Team Description 08/28/2021 Movement Education Specialist Telephone Family Practice [facility] [address] [place] [address] Cordelia Burns, RN 132 [facility] [place] [address] [phone] case management ([facility]) Allergies Active Allergy Reactions Severity Noted Date [...] Underwear 32 Each 2 03/18/2021 Active Nystatin 423546 UNIT/GM External Powder (Nystop) 1 harriet, Powder, [...] 0 04/23/2021 Active Vitamin D3 1.25 MG (81429 UT) Oral CapsuleIndications:Vi tamin D deficiency Take [...] Telephone Encounter - Cordelia Burns RN - 08/28/2021 11:19 AM EDT 1. Follow-up Routine 2. Attempted Phone Call Second Attempt 3. Call Unanswered Left Voicemail 4. Plan To attempt Follow-up documented in this encounter Plan of Treatment Upcoming Encounters Date Type Specialty Care Team Description 08/29/2021 [facility] [address] [place] [address] [phone] 09/24/2021 Office Visit Pulmonary Jesus Bonilla MD [address] [place] [address] 09/29/2021 Telemedicine Psychiatry Hugo Alcantara MD [address] [place] [address] Health Maintenance Due Date Last [...] Documents on File Type Date Recorded Patient Crystal Syrup Maker Expl 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
--- OUTSIDE RECORDS SUMMARY | 2023-07-25 04:55 | External Medical Summary | Summary of Care ---
Author Name Unknown Organization [facility] Address [place] [address] Care Team Providers Care Texturing Machine Fixer Name Role Phone Roger Alexandra MD Primary Care Provider [phone] [phone] Reason for Visit * Reason Comments Dosage Adjustment Via Phone (anticoag Cl inic) Encounter Details Date Type Department Care Team Description 08/05/2021 Anticoagulation Pharmacy Call Center [address] [facility] [place] [address] Telepharmacy, [facility] [address] [facility] [place] [address] [phone] long term care administrator current use of anticoagulant therapy* Allergies Active Allergy Reactions Severity Noted Date Comments Aspirin Unknown 12/12/2007 von Willebrand's disease Salicylates 03/01/2000 von Willebrand's disease documented as of this encounter (statuses as of 08/05/2021) Medications Medication Sig Dispensed Refills Start Date [...] Absorb Underwear 32 Each 2 03/18/2021 Active hydrOXYzine HCl 50 MG Oral Tablet Take 1 Tab by mouth 3 times a day as needed for Anxiety. 60 Tab 3 03/24/2021 Active Nystatin 340017 UNIT/GM External Powder (Nystop) 1 harriet, Powder, [...] for Cough. 120 mL 0 04/23/2021 Active traZODone HCl 50 MG Oral Tablet (Desyrel) Take 1 Tab by mouth at bedtime. 30 Tab 2 04/29/2021 Active Vitamin D3 1.25 MG (31172 UT) Oral CapsuleIndications:Vi tamin D deficiency Take [...] the morning. 30 Cap 2 06/18/2021 Active traZODone HCl 50 MG Oral Tablet (Desyrel) Take 1 Tab by mouth at bedtime. 30 Tab 2 06/18/2021 Active traMADol HCl 100 MG Oral TabletIndications:Chr onic bilateral low back pain without sciatica Take 100 mg by mouth every 8 hours as needed for Pain, Moderate or Pain, Severe. 90 Tab 0 07/15/2021 Active LORazepam 0.5 MG Oral Tablet (Ativan) Take 1 Tab by mouth 3 times a day as needed for Anxiety. 90 Tab 0 07/15/2021 Active Warfarin Sodium 5 MG Oral TabletIndications:Par oxysmal atrial fibrillation (HCC) 10 mg today, then 10mg every Mon, Fri; 7.5 mg all other days 60 Tab 0 07/20/2021 Active documented as of this encounter (statuses as of 08/05/2021) Active Problems Problem Noted Date Chronic hypoxemic [...] as of this encounter (statuses as of 08/05/2021) Resolved Problems Problem Noted Date Resolved Date [...] as of this encounter (statuses as of 08/05/2021) Immunizations Name Administration Dates Next Due H1N1 [...] Progress Notes * Kim Mercado, [facility] - 08/05/2021 2:33 PM EDT Images from the original note were not included. Medication Therapy Disease Management - Anticoagulation Patient: Kimberly Kendall : 1960 Contacts Type Contact Phone 08/05/2021 02:33 PM EDT Phone (Outgoing) Enoch Kimberly Abhilash (Self) [phone] (M) Spoke to Patient Current Warfarin Dose As of 08/05/2021 Warfarin maintenance plan: 10 mg (5 mg x 2) every Mon, Fri; 7.5 mg (5 mg x 1 and 2.5 mg x 1) all other days Patient-Reported Symptoms: Patient Findings Positives: Change in health Negatives: Signs/symptoms of thrombosis, Signs/symptoms of bleeding, Change in alcohol use, Change in activity, Upcoming invasive procedure, Missed doses, Extra doses, Change in medications, Change in diet/appetite, Bruising Comments: Diarrhea INR remains low. Pt states silk folder fills pillboxes, confirms Warfarin is in box and states she has been taking it. Advised pt risks of INR remaining low and importance of compliance. Spoke to Willow at [facility], they are scheduled to visit fran. Requested nurse do a pill box checkfor us. INR Result As of 08/05/2021 INR goal: 2.0-3.0 INR used for dosin.96 (08/05/2021) Warfarin Plan As of 08/05/2021 Full warfarin instructions: 08/05: 12.5 mg; 08/06: 12.5 mg; Otherwise 10 mg every Mon, Fri; 7.5 mg all other days Next INR check: 08/12/2021 Additional Dosing Information: Description GML Repeat PT/INR in 1 week(s) Weekly dose: not changed Kim Mercado RPh Clinical Pharmacist 08/05/2021, 2:33 PM documented in this encounter Plan of Treatment Upcoming Encounters Date Type Specialty Care Team Description 08/13/2021 [facility] [address] [place] [address] [phone] 08/18/2021 Telemedicine Psychiatry Hugo [facility]antara MD [address] [facility] [address] 09/24/2021 Office Visit Pulmonary [facility]illa MD [address] [facility] [address] Health Maintenance Due Date Last Done Comments [...] as of this encounter Visit Diagnoses Diagnosis assisted current use of anticoagulant therapy- Primary documented in this encounter Advance Directives Documents on File Type Date Recorded Patient Pin Drafting Machine Operator Expl 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
--- OUTSIDE RECORDS SUMMARY | 2023-07-25 04:55 | External Medical Summary | Summary of Care ---
Author Name Unknown Organization [place] [address] Care Team Providers Care Manager Operating Name Role Phone Roger Alexandra MD Primary Care Provider [phone] [phone] Reason for Visit * Reason Onset Date Comments Fax 08/18/2021 [facility] Status Check 08/18/2021 [facility] Encounter Details Date Type Department Care Team Description 08/18/2021 Telephone Family Practice [facility] [address] [place] [address] Roger Alexandra MD 132 [facility] [place] [address] Fax ([facility]X Lab ); Status Check (Pathe... Allergies Active Allergy Reactions Severity Noted Date Comments Aspirin Unknown 12/12/2007 von Willebrand's disease Salicylates 03/01/2000 von Willebrand's disease documented as of this encounter (statuses as of 08/26/2021) Medications Medication Sig Dispensed Refills Start Date [...] Underwear 32 Each 2 03/18/2021 Active Nystatin 465185 UNIT/GM External Powder (Nystop) 1 harriet, Powder, [...] 0 04/23/2021 Active Vitamin D3 1.25 MG (66534 UT) Oral CapsuleIndications:Vi tamin D deficiency Take [...] as of this encounter (statuses as of 08/26/2021) Active Problems Problem Noted Date Chronic hypoxemic [...] as of this encounter (statuses as of 08/26/2021) Resolved Problems Problem Noted Date Resolved Date [...] as of this encounter (statuses as of 08/26/2021) Immunizations Name Administration Dates Next Due H1N1 [...] encounter Miscellaneous Notes * Telephone Encounter - Deon Araiza OSA - 08/26/2021 2:50 PM EDT Cole calling to check on the status of previous messages. Forms were faxed again yesterday morningto [phone]; please confirm whether or not fax was received. Thanks. Callback#: [phone] * Telephone Encounter - Ciera Medley OSA - 08/22/2021 9:14 AM EDT Received a call asking if fax was received by office. Name/Company sending fax: Cole Miller [employer] What fax is pertaining to: Cardiac Genetic Testing , 6 pages Date(s) they sent request: 08/20/2021 Verified fax number they are sending to is correct (Y or N): Y Callback Number for the clinic to call to verified if fax was received: [phone] * Telephone Encounter - Ciera Medley OSA - 08/20/2021 2:33 PM EDT Received a call asking if fax was received by office. Name/Company sending fax: Cole from [employer] What fax is pertaining to: Cardiac Genetic test Date(s) they sent request: 08/19/2021 Verified fax number they are sending to is correct (Y or N): N , I just provided correct fax # on this call Callback Number for the clinic to call to verified if fax was received: [phone] * Telephone Encounter - Kim De Guzman LPN - 08/18/2021 12:07 PM EDT Pt says that she did the MyCode testing a couple of months ago and that someone from [employer] called her just now and was asking [...] Encounters Date Type Specialty Care Team Description 08/27/2021 [facility] [address] [place] [address] [phone] 08/28/2021 Laboratory Laboratory Processing [facility] Mobile Home Draw [address] [place] [address] 09/24/2021 Office Visit Pulmonary Jesus Bonilla MD [address] [place] [address] 09/29/2021 Telemedicine Psychiatry Hugo Alcantara MD [address] [place] [address] Health Maintenance Due Date Last [...] Documents on File Type Date Recorded Patient Biomedical Service Engineer Expl 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
--- OUTSIDE RECORDS SUMMARY | 2023-07-25 04:55 | External Medical Summary | Summary of Care ---
Author Name Unknown Organization [place] [address] Care Team Providers Care Customs House Broker Name Role Phone Roger Alexandra MD Primary Care Provider [phone] [phone] Reason for Visit * Reason Onset Date Comments Fax 08/18/2021 [facility] Status Check 08/18/2021 [facility] Encounter Details Date Type Department Care Team Description 08/18/2021 Telephone Family Practice [facility] [address] [place] [address] Roger Alexandra MD [address] [facility] [place] [address] Fax ([facility]X [facility] [...] Underwear 32 Each 2 03/18/2021 Active Nystatin 228656 UNIT/GM External Powder (Nystop) 1 harriet, Powder, [...] 0 04/23/2021 Active Vitamin D3 1.25 MG (63440 UT) Oral CapsuleIndications:Vi tamin D deficiency Take [...] get them to office. Please return call [phone] * Telephone Encounter - Deon Araiza OSA - 08/26/2021 2:50 PM EDT Cole calling to check on the status of previous messages. Forms were faxed again yesterday morningto [phone]; please confirm whether or not fax was received. Thanks. Callback#: [phone] * Telephone Encounter - Ciera Medley OSA - 08/22/2021 9:14 AM EDT Received a call asking if fax was received by office. Name/Company sending fax: Cole Miller [employer] What fax is pertaining to: Cardiac Genetic Testing , 6 pages Date(s) they sent request: 08/20/2021 Verified fax number they are sending to is correct (Y or N): Y Callback Number for the clinic to call to verified if fax was received: [phone] * Telephone Encounter - Ciera Medley OSA - 08/20/2021 2:33 PM EDT Received a call asking if fax was received by office. Name/Company sending fax: Cole from [facility] What fax is pertaining to: Cardiac Genetic test Date(s) they sent request: 08/19/2021 Verified fax number they are sending to is correct (Y or N): N , I just provided correct fax # on this call Callback Number for the clinic to call to verified if fax was received: [phone] * Telephone Encounter - Kim De Guzman LPN - 08/18/2021 12:07 PM EDT Pt says that she did the MyCode testing a couple of months ago and that someone from [employer] called her just now and was asking [...] Care Team Description 08/28/2021 Laboratory Laboratory Processing [facility] Mobile Home Draw [address] [place] [address] [phone] 08/29/2021 [facility] [address] [place] [address] [phone] 09/24/2021 Office Visit Pulmonary Jesus Bonilla MD [address] [place], [place] [id number] 09/29/2021 Telemedicine Psychiatry Hugo Alcantara MD [address] [place] [address] [phone] Health Maintenance Due Date Last Done Comments [...] Documents on File Type Date Recorded Patient Safety And Health Manager Expl 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
--- OUTSIDE RECORDS SUMMARY | 2023-07-25 04:55 | External Medical Summary ---
Author Name Unknown Address Unknown Organization [facility] [address] [place] [id number] Laboratory Report Ordering Provider Test Date Status SUMAN STANFORD 08/05/2021 09:52:00 Final Observation Date Value Abnormality Reference (Units ) Status PT 08/05/2021 09:52:00 12.9 11.5-14.6 (seconds) Final INR 08/05/2021 09:52:00 0.96 0.84-1.14 Final Performing Location [facility] [address] [place] [address]
--- OUTSIDE RECORDS SUMMARY | 2023-07-25 04:55 | External Medical Summary | Summary of Care ---
Author Name Unknown Organization [place] [address] Care Team Providers Care Branch Service Specialist Name Role Phone Roger Alexandra MD Primary Care Provider [phone] Reason for Visit * Reason Onset Date Comments Medication Refill 08/11/2021 Encounter Details Date Type Department Care Team Description 08/11/2021 Refill [facility] [address] [place] [address] Cindy Gandhi, [address] [place], [place] [id number] Allergies Active Allergy Reactions Severity Noted Date Comments Aspirin Unknown 12/12/2007 von Willebrand's disease Salicylates 03/01/2000 von Willebrand's disease documented as of this encounter (statuses as of 08/12/2021) Medications Medication Sig Dispensed Refills Start Date [...] 60 Tab 2 03/05/2021 Active Disposable Brief X-LargeIndications :Overactive bladder Attends X-Large Super Absorb Underwear 32 Each 2 03/18/2021 Active hydrOXYzine HCl 50 MG Oral Tablet Take 1 Tab by mouth 3 times a day as needed for Anxiety. 60 Tab 3 03/24/2021 Active Nystatin 130807 UNIT/GM External Powder (Nystop) 1 harriet, Powder, Topical twice daily, 1 EA, 0 Refill(s), Indication: Candidiasis of Skin, Route to Pharmacy Electronically, [facility] [address], [address], 10/02/20 [...] 2 04/29/2021 Active Vitamin D3 1.25 MG (91055 UT) Oral CapsuleIndications :Vitamin D deficiency Take [...] 06/18/2021 Active traMADol HCl 100 MG Oral TabletIndications: Chronic bilateral low back pain without sciatica Take 100 mg by mouth every 8 hours as needed for Pain, Moderate or Pain, Severe. 90 Tab 0 07/15/2021 Active Warfarin Sodium 5 MG Oral TabletIndications: Paroxysmal atrial fibrillation (HCC) 10 mg today, then 10mg every Mon, Fri; 7.5 mg all other days 60 Tab 0 07/20/2021 Active LORazepam 0.5 MG Oral Tablet (Ativan) Take 1 Tab by mouth 3 times a day as needed for Anxiety. 90 Tab 0 08/12/2021 Active LORazepam 0.5 MG Oral Tablet (Ativan) Take 1 Tab by mouth 3 times a day as needed for Anxiety. 90 Tab 0 07/15/2021 08/11/2021 Discontinue d(Refill) documented as of this encounter (statuses as of 08/12/2021) Active Problems Problem Noted Date Chronic hypoxemic [...] as of this encounter (statuses as of 08/12/2021) Resolved Problems Problem Noted Date Resolved Date [...] as of this encounter (statuses as of 08/12/2021) Immunizations Name Administration Dates Next Due H1N1 [...] encounter Miscellaneous Notes * Telephone Encounter - Cindy Gandhi DO - 08/12/2021 8:41 AM EDT Signed Prescriptions: Disp Refills LORazepam 0.5 MG Oral Tablet (Ativan) 90 Tab 0 Sig: Take 1 Tab by mouth 3 times a day as needed for Anxiety. Authorizing Provider: CINDY GANDHI * Telephone Encounter - Renata Quintana OSA - 08/11/2021 10:52 AM EDT Patient calling for refill on Ativan. Patient last seen on 07/17/2021 with return appointment scheduled for 08/18/2021. Patient had 0 cancelled appointments and 0 NO SHOW appointments. Medication was last filled on 07/15/2021 with 0 refills. documented in this encounter Plan of Treatment Upcoming Encounters Date Type Specialty Care Team Description 08/13/20[facility] [address] [facility] [place] [address] [phone] 08/18/2021 Telemedicine Psychiatry Hugo Alcantara MD [address] [facility] [place] [address] 09/24/2021 Office Visit Pulmonary Jesus Bonilla MD [address] [facility] [place] [address] Health Maintenance Due Date Last Done [...]
--- OUTSIDE RECORDS SUMMARY | 2023-07-25 04:55 | External Medical Summary ---
Author Name Unknown Address Unknown Organization [facility] [address] [place] [address] Laboratory Report Ordering Provider Test Date Status SUMAN STANFORD 08/19/2021 10:17:00 Final Observation Date Value Abnormality Reference (Units ) Status PT 08/19/2021 10:17:00 35.7 Above high normal 11 .5-14.6 (seconds) Final INR 08/19/2021 10:17:00 3.50 Above high normal 0. 84-1.14 Final Performing Location [facility] [address] [place] [address]
--- OUTSIDE RECORDS SUMMARY | 2023-07-25 04:55 | External Medical Summary | Summary of Care ---
Author Name Unknown Organization [place] [address] Care Team Providers Care Education Courses Sales Representative Name Role Phone Jeevan Mclean MD Primary Care Provider [phone] Reason for Visit * Reason Onset Date Comments Medication Refill 08/11/2021 Encounter Details Date Type Department Care Team Description 08/11/2021 Refill Family Practice [facility] [address] [place] [id number] Jeevan Mclean MD 132 [facility] [place] [address] [phone] Chronic bilateral low back pain without sciatica [...] Anxiety. 60 Tab 3 03/24/2021 Active Nystatin 025445 UNIT/GM External Powder (Nystop) 1 harriet, Powder, [...] 2 04/29/2021 Active Vitamin D3 1.25 MG (93965 UT) Oral CapsuleIndications :Vitamin D deficiency Take [...] at bedtime. 30 Tab 2 06/18/2021 Active Warfarin Sodium 5 MG Oral TabletIndications: Paroxysmal atrial fibrillation (HCC) 10 mg today, then 10mg every Mon, Fri; 7.5 mg all other days 60 Tab 0 07/20/2021 Active traMADol HCl 100 MG Oral TabletIndications: Chronic bilateral low back pain without sciatica Take 100 mg by mouth every 8 hours as needed for Pain, Moderate or Pain, Severe. 90 Tab 0 08/12/2021 Active traMADol HCl 100 MG Oral TabletIndications: Chronic bilateral low back pain without sciatica Take 100 mg by mouth every 8 hours as needed for Pain, Moderate or Pain, Severe. 90 Tab 0 07/15/2021 08/11/2021 Discontinue d(Refill) [...] pain without sciatica 10/14/2020 Paroxysmal atrial fibrillation 11/30/202 0 Moderate episode of recurrent major depr [...] Telephone Encounter - Jeevan Mclean MD - 08/12/2021 12:10 PM EDT Signed Prescriptions: Disp Refills traMADol HCl 100 MG Oral Tablet 90 Tab 0 Sig: Take 100 mg by mouth every 8 hours as needed for Pain, Moderate or Pain, Severe. Authorizing Provider: JEEVAN MCLEAN * Telephone Encounter - Kerry Reyes [facility] - 08/12/2021 11:47 AM EDT Pending Prescriptions: Disp Refills traMADol HCl 100 MG Oral Tablet 90 Tab 0 Sig: Take 100 mg by mouth every 8 hours as needed for Pain, Moderate or Pain, Severe. * Telephone Encounter - Kerry Reyes RPh - 08/12/2021 11:46 AM EDT I have reviewed the patients controlled substance dispensing history in the Prescription Drug Monitoring Program in compliance with the [facility] regulations before prescribing a controlled substance. PDMP checked on 08/12/2021. Pending Prescriptions: Disp Refills traMADol HCl 100 MG Oral Tablet 90 Tab 0 Sig: Take 100 mg by mouth every 8 hours as needed for Pain, Moderate or Pain, Severe. Last Office/Telemedicine Visit: 06/12/2021 Next Office Visit: No Future Appointments Date medication was last filled: 07/16/21 Date medication is due for refill: 08/14/21 Pharmacy: [email or web address] [address] Is this request for a controlled [...] Results Review. Please approve if appropriate. Thanks, Kerry Reyes Clinical Pharmacist Telepharmacy 08/12/2021, 11:46 AM * Telephone Encounter - Anitra Castellanos associate director data & analytics - 08/11/2021 8:45 AM EDT Pending Prescriptions: Disp Refills traMADol HCl 100 MG Oral Tablet 90 Tab 0 Sig: Take 100 mg by mouth every 8 hours as needed for Pain, Moderate or Pain, Severe. Last Office/Telemedicine Visit: 06/12/2021 Next Office Visit: No Future Appointments If no future appointments scheduled, and last appointment is greater than a year ago, please schedule patient for a follow-up appointment Last date the medication was ordered: 07/15/2021 Pharmacy: [email or web address] [address] [place] Is this request for a controlled substance?Yes [...] Specialty Care Team Description 08/13/20[facility] [address] [place] [address] [phone] 08/18/2021 Telemedicine Psychiatry [facility]ara [facility] [address] [facility] [address] 09/24/2021 Office Visit Pulmonary Jesus Bonilla MD [address] [facility] [place] [address] Health Maintenance Due Date Last Done [...] Documents on File Type Date Recorded Patient One Piece Expansion Maker Hand Expl 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
--- OUTSIDE RECORDS SUMMARY | 2023-07-25 04:55 | External Medical Summary | Summary of Care ---
Author Name Unknown Organization [facility] Address [place] [address] Care Team Providers Care Metal Bonding Worker Name Role Phone Roger Alexandra MD Primary Care Provider [phone] Reason for Visit * Reason Comments Dosage Adjustment Via Phone (anticoag Cl inic) Encounter Details Date Type Department Care Team Description 08/13/2021 Anticoagulation Pharmacy Call Center [address] [facility] [place] [address] Telepharmacy, [facility] [address] [facility] [place] [address] [phone] intermediate designer current use of anticoagulant therapy* Allergies Active Allergy Reactions Severity Noted Date Comments Aspirin Unknown 12/12/2007 von Willebrand's disease Salicylates 03/01/2000 von Willebrand's disease documented as of this encounter (statuses as of 08/13/2021) Medications Medication Sig Dispensed Refills Start Date [...] Anxiety. 60 Tab 3 03/24/2021 Active Nystatin 205284 UNIT/GM External Powder (Nystop) 1 harriet, Powder, [...] 2 04/29/2021 Active Vitamin D3 1.25 MG (49849 UT) Oral CapsuleIndications:Vi tamin D deficiency Take [...] 06/18/2021 Active Warfarin Sodium 5 MG Oral TabletIndications:Par oxysmal atrial fibrillation (HCC) 10 mg today, then 10mg every Mon, Fri; 7.5 mg all other days 60 Tab 0 07/20/2021 Active traMADol HCl 100 MG Oral TabletIndications:Chr onic bilateral low back pain without sciatica Take 100 mg by mouth every 8 hours as needed for Pain, Moderate or Pain, Severe. 90 Tab 0 08/12/2021 Active LORazepam 0.5 MG Oral Tablet (Ativan) Take 1 Tab by mouth 3 times a day as needed for Anxiety. 90 Tab 0 08/12/2021 Active documented as of this encounter (statuses as of 08/13/2021) Active Problems Problem Noted Date Chronic hypoxemic [...] as of this encounter (statuses as of 08/13/2021) Resolved Problems Problem Noted Date Resolved Date [...] as of this encounter (statuses as of 08/13/2021) Immunizations Name Administration Dates Next Due H1N1 [...] as of this encounter Progress Notes * Nissa Dc PHARM Tech - 08/13/2021 8:02 AM EDT Contacts Type Contact Phone 08/13/2021 08:00 AM EDT Phone (Outgoing) Kimberly Kendall (Self) [phone] (M) Patient Findings Negatives: Signs/symptoms of thrombosis, [...] communicated as noted by Pharmacist: Yes DANIEL Sheffield Tech 08/13/2021, 8:02 AM * Kim Mercado [facility] - 08/13/2021 7:55 AM EDT Coumadin Clinic (region specific) Current Warfarin Dose As of 08/13/2021 Warfarin maintenance plan: 10 mg (5 mg x 2) every Mon, Fri; 7.5 mg (5 mg x 1 and 2.5 mg x 1) all other days INR Result As of 08/13/2021 INR goal: 2.0-3.0 INR used for dosin.69 (08/12/2021) Warfarin Plan As of 08/13/2021 Full warfarin instructions: 10 mg every Mon, Fri; 7.5 mg all other days No change documented: Kim Mercado RPh Next INR check: 08/19/2021 Repeat PT/INR in 1 week(s) Weekly dose: not changed Additional Dosing Information: Description GML Tech to contact patient with dose instructions as noted. Kim Mercado RPh 08/13/2021, 7:55 AM documented in this encounter Plan of Treatment Upcoming Encounters Date Type Specialty Care Team Description 08/18/2021 Telemedicine Psychiatry Hugo [facility]ara MD [address] [facility] [address] 09/24/2021 Office Visit Pulmonary Jesus Bonilla MD [address] [facility] [address] Health Maintenance Due Date Last Done [...] of this encounter Visit Diagnoses Diagnosis intermediate designer current use of anticoagulant therapy- Primary documented in this encounter Advance Directives Documents on File Type Date Recorded Patient Coordinate Measuring Machine Programmer Expl 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
--- OUTSIDE RECORDS SUMMARY | 2023-07-25 04:55 | External Medical Summary | Summary of Care ---
Author Name Unknown Organization [place] [address] Care Team Providers Care Roof Truss Builder Name Role Phone Roger Alexandra MD Primary Care Provider [phone] Reason for Visit * Reason Onset Date Comments Fax 08/18/2021 [facility] Status Check 08/18/2021 [facility] Encounter Details Date Type Department Care Team Description 08/18/2021 Telephone Family Practice [facility] [address] [place] [address] Roger Alexandra MD 132 [facility] [place] [address] Fax ([facility]X [facility] ); Status Check (Pathe... Allergies Active Allergy Reactions Severity Noted Date Comments Aspirin Unknown 12/12/2007 von Willebrand's disease Salicylates 03/01/2000 von Willebrand's disease documented as of this encounter (statuses as of 08/25/2021) Medications Medication Sig Dispensed Refills Start Date [...] Underwear 32 Each 2 03/18/2021 Active Nystatin 946472 UNIT/GM External Powder (Nystop) 1 harriet, Powder, [...] 0 04/23/2021 Active Vitamin D3 1.25 MG (22500 UT) Oral CapsuleIndications:Vi tamin D deficiency Take [...] as of this encounter (statuses as of 08/25/2021) Active Problems Problem Noted Date Chronic hypoxemic [...] as of this encounter (statuses as of 08/25/2021) Resolved Problems Problem Noted Date Resolved Date [...] as of this encounter (statuses as of 08/25/2021) Immunizations Name Administration Dates Next Due H1N1 [...] encounter Miscellaneous Notes * Telephone Encounter - Ciera Medley OSA - 08/22/2021 9:14 AM EDT Received a call asking if fax was received by office. Name/Company sending fax: Cole Miller [employer] What fax is pertaining to: Cardiac Genetic Testing , 6 pages Date(s) they sent request: 08/20/2021 Verified fax number they are sending to is correct (Y or N): Y Callback Number for the clinic to call to verified if fax was received: [phone] * Telephone Encounter - Ciera Medley OSA - 08/20/2021 2:33 PM EDT Received a call asking if fax was received by office. Name/Company sending fax: Cole from [employer] [facility] What fax is pertaining to: Cardiac Genetic test Date(s) they sent request: 08/19/2021 Verified fax number they are sending to is correct (Y or N): N , I just provided correct fax # on this call Callback Number for the clinic to call to verified if fax was received: [phone] * Telephone Encounter - Kim De Guzman LPN - 08/18/2021 12:07 PM EDT Pt says that she did the MyCode testing a couple of months ago and that someone from [employer] called her just now and was asking [...] Encounters Date Type Specialty Care Team Description 08/26/2021 Laboratory Laboratory Processing [facility] Mobile Home Draw [address] [place] [address] 08/27/20[facility] [address] [place] [address] [phone] 09/24/2021 Office Visit Pulmonary Jesus Bonilla MD [address] [facility] [place] [id number] 09/29/2021 Telemedicine Psychiatry Hugo Alcantara MD [address] [place] [address] Health Maintenance Due Date Last [...] Documents on File Type Date Recorded Patient Silk Examiner Expl 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
--- OUTSIDE RECORDS SUMMARY | 2023-07-25 04:55 | External Medical Summary ---
Author Name Unknown Address Unknown Organization [facility] [address] [place] [address] Laboratory Report Ordering Provider Test Date Status SUMAN STANFORD 08/12/2021 10:10:00 Final Observation Date Value Abnormality Reference (Units ) Status PT 08/12/2021 10:10:00 29.0 Above high normal 11 .5-14.6 (seconds) Final INR 08/12/2021 10:10:00 2.69 Above high normal 0. 84-1.14 Final Performing Location [facility] [address] [place] [address]
--- OUTSIDE RECORDS SUMMARY | 2023-07-25 04:55 | External Medical Summary | Summary of Care ---
Author Name Unknown Organization [place] [address] Care Team Providers Care Food Preservation Scientist Name Role Phone Roger Alexandra MD Primary Care Provider [phone] Reason for Referral * Evaluate & Treat - Unlimited Visits (Within 3 days (urgent)) Status Reason Specialty Diagnoses / Procedures Referred By Contact Referred To Contact Authorized Specialty Services Required Lithography Contact Worker Diagnoses COPD, group B, by GOLD 2017 classification (HCC) Roger Alexandra MD [address] [facility] [place] [address] Question Answer Referral Priority Within 3 days (urgent) Role Gas Operations Analyst Gas Operations Analyst Referral Reason Frail Elderly Electronically signed by Roger Alexandra MD at Reason for Visit * Reason Onset Date Comments Advice 08/26/2021 Encounter Details Date Type Department Care Team Description 08/26/2021 Telephone Family Practice [facility] [address] [place] [address] Roger Alexandra MD [address] [place] [address] [phone] Advice Allergies Active Allergy Reactions Severity Noted [...] Underwear 32 Each 2 03/18/2021 Active Nystatin 076947 UNIT/GM External Powder (Nystop) 1 harriet, Powder, [...] 0 04/23/2021 Active Vitamin D3 1.25 MG (80796 UT) Oral CapsuleIndications:Vi tamin D deficiency Take [...] Telephone Encounter - Cordelia Burns RN - 08/27/2021 8:40 AM EDT SITUATION: Pt possibly exposed to Covid through caregiver. BACKGROUND: Has caregiver for long time. Caregiver had an appt on Wednesday. Fatemeh is the caregiver. Her son's girlfriend has Covid and they all live together. Fatemeh had fever when she got up yesterday morning. Fatemeh's last visit to Kimberly was on Wednesday. [employer]/Juan Pablo?? No phone number available. Juan Pablo from [email or web address] told Kimberly, caregiver was around someone with Covid. No other caregivers available to assist with patient. Caregiver filled pillbox on Wednesday and patient is afraid to take the pills in the box Pt she is not able to fill the pill box herself. Reports that her vision is not good. ASSESSMENT: PT is oxygen for COPD Breathing is what is her normal. Cough is her normal. No fever that she is aware. Sweating and chills she doesn't know when it started. Maybe this week. No N/V; pt reports that she constantly has diarrhea. Daughter in law is a [employer] church business administrator and would need to take off work to provide transportation Scared right now about being exposed. Family does not fill pillbox, "they are afraid they will overdose her." RECOMMENDATION: Pt will call CM back with phone number to [employer]. CM contacted [facility] and patient is not active with them at this time. Advised patient of process for drive up Covid testing and need to schedule an appointment. Advised pt to notify CM when she hears of the results for the Caregiver and Covid testing. CM will FU with patient ~[address] Alexandra. Cordelia Burns RN (Kori), BSN, [facility] Lithography Contact Worker [phone] * Telephone Encounter - Cordelia Burns RN - 08/27/2021 8:38 AM EDT Pt left message on CM voicemail. Attempted to reach again and left message on voicemail. * Telephone Encounter - Cordelia Burns RN - 08/27/2021 8:15 AM EDT 1. Follow-up Routine 2. Attempted Phone Call First Attempt 3. Call Unanswered Left Voicemail 4. Plan To attempt Follow-up * Telephone Encounter - Cordelia Burns RN - 08/27/2021 7:26 AM EDT According to the note, the exposure is questionable until a confirmed positive case from caregiver. I will reach out to patient and follow up. * Telephone Encounter - Roger Alexandra MD - 08/26/2021 4:13 PM EDT Any ideas ? * Telephone Encounter - Beth Kiran OSA - 08/26/2021 3:56 PM EDT Patient requesting c/b flaquito. Reported that her caregiver may be Covid +, and patient has been exposed. Caregiver fills her medicine box for the week, and she took today's pills before she had been told she may have been exposed. Requesting c/b please from PCP office, she is bedridden, inquiring if there is any type of mobile unit that will come out to house to swab her for covid. She is waiting on final results from caregiver. Thank You, Beth Kiran [facility] Asst 1 documented in this encounter Plan of Treatment Upcoming Encounters Date Type Specialty Care Team Description 08/28/2021 Laboratory Laboratory Processing [facility] [place] Mobile Home Draw [address] [place] [address] 08/29/20[facility] [address] [place] [address] [phone] 09/24/2021 Office Visit Pulmonary Jesus Bonilla MD [address] [place] [address] [phone] 09/29/2021 Telemedicine Psychiatry Hugo Alcantara MD [address] [place] [address] Scheduled Referrals Name Type Priority Associated Diagnoses Orde r Schedule POPULATION HEALTH REFERRAL OP Referral Within 3 days (urgent) COPD, group B, by GOLD 2017 classification (HCC) Ordered: 08/27/2021 Health Maintenance Due Date Last Done Comments [...] Documents on File Type Date Recorded Patient Server Security Administrator Expl 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
--- OUTSIDE RECORDS SUMMARY | 2023-07-25 04:55 | External Medical Summary | Summary of Care ---
Author Name Unknown Organization [place] [address] Care Team Providers Care Stoker Installer Name Role Phone Jeevan Mclean MD Primary Care Provider [phone] Reason for Visit * Reason Comments eRx-Medication Refill Encounter Details Date Type Department Care Team Description 08/16/2021 Refill Family Practice [facility] [address] [place] [address] Kay Velez MD [address] [place] [address] [phone] Paroxysmal atrial fibrillation (HCC) Allergies Active Allergy Reactions Severity Noted Date Comments Aspirin Unknown 12/12/2007 von Willebrand's disease Salicylates 03/01/2000 von Willebrand's disease documented as of this encounter (statuses as of 08/18/2021) Medications Medication Sig Dispensed Refills Start Date [...] Underwear 32 Each 2 03/18/2021 Active Nystatin 953093 UNIT/GM External Powder (Nystop) 1 harriet, Powder, [...] 0 04/23/2021 Active Vitamin D3 1.25 MG (38539 UT) Oral CapsuleIndications :Vitamin D deficiency Take [...] coumadin clinic 180 Tab 1 08/18/2021 Active Warfarin Sodium 5 MG Oral TabletIndications: Paroxysmal atrial fibrillation (HCC) 10 mg today, then 10mg every Mon, Fri; 7.5 mg all other days 60 Tab 0 07/20/2021 1 Discontinued documented as of this encounter (statuses as of 08/18/2021) Active Problems Problem Noted Date Chronic hypoxemic [...] as of this encounter (statuses as of 08/18/2021) Resolved Problems Problem Noted Date Resolved Date [...] 02/04/2006 12/21/2008 Atrial septal aneurysm 02/04/2006 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 As directed by coumadin clinicAuthorizing Provider: JEEVAN MCLEAN User: KANDACE CUNNINGHAM * Telephone Encounter - Kandace Cunningham RPh - 08/18/2021 4:00 PM EDT Per Most recent [facility] encounter, current dosin mg every Mon, Fri; 7.5 mg all other days ThanksKandace RPh Staff Pharmacist Telepharmacy 08/18/2021,4:01 PM documented in this encounter Plan of Treatment Upcoming Encounters Date Type Specialty Care Team Description 08/19/2021 Laboratory Laboratory Processing [facility] [address] [facility] [id number] 08/20/2021 [facility] [address] [facility] [place] [address] [phone] 09/24/2021 Office Visit Pulmonary Jesus Bonilla MD [address] [place] [address] [phone] Health Maintenance Due Date Last Done Comments [...] Documents on File Type Date Recorded Patient Novelty Maker Expl 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
--- OUTSIDE RECORDS SUMMARY | 2023-07-25 04:55 | External Medical Summary | Summary of Care ---
Author Name Unknown Organization [place] [address] Care Team Providers Care Youth Services Librarian Name Role Phone Roger Alexandra MD Primary Care Provider [phone] Encounter Details Date Type Department Care Team Description 08/18/2021 Telemedicine Psychiatry, [facility] [address] [place] [address] Hugo Alcantara MD [address] [place] [address] SIMA (generalized anxiety disorder)* Allergies [...] Underwear 32 Each 2 03/18/2021 Active Nystatin 481770 UNIT/GM External Powder (Nystop) 1 harriet, Powder, [...] 0 04/23/2021 Active Vitamin D3 1.25 MG (60661 UT) Oral CapsuleIndications :Vitamin D deficiency Take [...] for Anxiety. 90 Tab 0 08/12/2021 Active hydrOXYzine HCl 50 MG Oral Tablet Take 1 Tab by mouth 3 times a day as needed for Anxiety. 60 Tab 3 03/24/2021 1 Discontinued traZODone HCl 50 MG Oral Tablet (Desyrel) Take 1 Tab by mouth at bedtime. 30 Tab 2 04/29/2021 1 Discontinued traZODone HCl 50 MG Oral Tablet (Desyrel) Take 1 Tab by mouth at bedtime. 30 Tab 2 06/18/2021 1 Discontinued documented as of this encounter [...] Progress Notes * Hugo Alcantara MD - 08/18/2021 10:47 AM EDT After connecting through [employer], patient was verified with two unique identifiers. Patient (or authorized legal promotional representative) was then informed that this was a Telemedicine visit and being conducted confidentially over secure lines. Methods to assure confidentiality were taken. Patient acknowledged consent and understanding of privacy and security of the Telemedicine visit. The patient agreed to participate. PSYCHOTHERAPY & MEDICATION MANAGEMENT RETURN VISIT NOTE Psychiatry, [facility] [address] [facility] [address] 08/18/2021 Kimberly Kendall CHIEF COMPLAINT: medication management INTERVAL HISTORY: "I've been nervous and I cannot sleep". Sleep: 1 week of difficulty sleeping. Waking nightly around 3am. Unable to fall back asleep. Taking trazodone 50mg nightly. Feels hydroxyzineis not helpful-- "Like taking nothing". Previously found Buspar to be helpful for anxiety sx. Unsure why this was ri'ed. Mentions all the losses she has experienced. States she feels like she is "just waiting". States "I'm not suicidal. I just wish God would speed up the process". Looks forward to seeing grandchildren (all adults). Reports she has had therapy in the past. States "it was alright [facility]" OBJECTIVE DATA: COLUMBIA-SUICIDE SEVERITY RATING SCALE Have [...] Current Outpatient Medications Medication Sig Dispense Refill LORazepam 0.5 MG Oral Tablet (Ativan) Take 1 Tab by mouth 3 times a day as needed for Anxiety. 90 Tab 0 traMADol HCl 100 MG Oral Tablet Take 100 mg by mouth every 8 hours as needed for Pain, Moderate or Pain, Severe. 90 Tab 0 Warfarin Sodium 5 MG Oral Tablet 10 mg today, then 10mg every Mon, Fri; 7.5 mg all other days 60 Tab 0 FLUoxetine HCl 40 MG Oral Capsule (PROzac) Take 1 Cap by mouth daily. In the morning. 30 Cap 2 traZODone HCl 50 MG Oral Tablet (Desyrel) Take 1 Tab by mouth at bedtime. 30 Tab 2 Anoro Ellipta 62.5-25 MCG/INH Inhalation Aerosol Powder Breath Activated (umeclidinium-vilanterol) Inhale 1 Puff by mouth daily. 30 Each 11 Arnuity Ellipta 100 MCG/ACT Inhalation Aerosol Powder Breath Activated (fluticasone Furoate) DAILY Isosorbide Mononitrate ER 30 MG Oral Tablet Extended Release 24 Hour (Imdur) take 1 tablet by mouthdaily 30 Tab 5 Vitamin D (Cholecalciferol) 25 MCG (1000 UT) Oral Capsule Take 1 Cap by mouth daily. 30 Cap 5 Vitamin D3 1.25 MG (09379 UT) Oral Capsule Take 1 Cap by mouth once a week. 4 Cap 3 traZODone HCl 50 MG Oral Tablet (Desyrel) Take 1 Tab by mouth at bedtime. 30 Tab 2 guaiFENesin-Codeine 100-10 MG/5ML Oral Syrup (Robitussin AC) Take 5 mL by mouth every 4 hours as needed for Cough. 120 mL 0 Nystatin 100607 UNIT/GM External Powder (Nystop) 1 harriet, Powder, Topical twice daily, 1 EA, 0 Refill(s), Indication: Candidiasis of Skin, Route to Pharmacy Electronically, [facility], 160, 10/02/20 10:43:00 EST, Height/Length Dosing, cm, 116.3, 10/02/20 10:43:00 EST, Weight Dosing, kg15 g 1 hydrOXYzine HCl 50 MG Oral Tablet Take 1 Tab by mouth 3 times a day as needed for Anxiety. 60 Tab 3 Disposable Brief X-Large Attends X-Large Super Absorb Underwear 32 Each 2 busPIRone HCl 10 MG Oral Tablet (Buspar) Take 1 Tab by mouth 2 times a day. 60 Tab 2 Furosemide 20 MG Oral Tablet (Lasix) take 1 tablet by mouth once daily if needed (3LB WEIGHT GAIN OR LEG SWELLING) 30 Tab 2 Albuterol Sulfate (2.5 MG/3ML) 0.083% Inhalation Nebulization Solution (PROVENTIL) Inhale 1 Vial via nebulizer every 4 hours as needed for Wheezing. 20 mL 1 ondansetron (ZOFRAN) 4 MG Tablet Take 1 Tab by mouth every 8 hours as needed for Nausea. 15 Tab 0 Albuterol Sulfate (PROAIR HFA) 108 (90 Base) MCG/ACT AERS Inhale 2 Puffs by mouth 4 times a day. 18g 1 Cholestyramine Light (QUESTRAN LIGHT) 4 GM/DOSE POWD Take 1 Scoopful Dosing Unit by mouth 2 times aday. in 6oz of liquid . 210 g 3 Acetaminophen (TYLENOL) 325 MG CAPS Take by mouth. OXYGEN 4 L during the day as needed and at bedtime LABS: reviewed per EMR MENTAL STATUS EVALUATION: [...] good Judgment: good FORMULATION: Kimberly Kendall is [id number] old female with presenting symptoms ofdepression, anxiety, [...] episode moderate Generalized Anxiety Disorder PTSD Bereavement PLAN: - I have reviewed the patients controlled substance dispensing history in the Prescription Drug Monitoring Program in compliance with the [facility] regulations before prescribing a controlled substance. -- dc hydroxyzine as it is not effective -- increase trazodone to 100mg qHS -- cont Prozac 40mg qday -- cont Ativan 0.5mg TID -- restart Buspar 10mg BID as this was previously effective for anxiety sx -- recommend therapy RTC: 6 weeks PLAN: - Crisis planning-- Kimberly Kendall has been [...] Discussed/Verbalized Understanding yes Time Spent on Visit: 40 minutes - including preparing to see the patient, reviewing history, performing evaluation, counseling/educating patient, ordering medications/tests, documenting clinical information. Hugo Alcantara MD Psychiatry Attending 08/18/2021 documented in this encounter Plan of Treatment Upcoming Encounters Date Type Specialty Care Team Description 08/19/2021 Laboratory Laboratory Processing [facility] [place] [facility] Mobile Home Draw [address] [place] [address] [phone] 08/20/2021 [facility] [address] [facility] [place] [address] [phone] 09/24/2021 Office Visit Pulmonary Jesus Bonilla MD [address] [place] [address] [phone] Health Maintenance Due Date Last Done Comments [...] on File Type Date Recorded Patient Automatic Edger Expl 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
--- OUTSIDE RECORDS SUMMARY | 2023-07-25 04:55 | External Medical Summary | Summary of Care ---
Author Name Unknown Organization [facility] Address [place] [address] Care Team Providers Care Civil Cadd Technician Name Role Phone Roger Alexandra MD Primary Care Provider [phone] Reason for Visit * Reason Comments Dosage Adjustment Via Phone (anticoag Cl inic) Encounter Details Date Type Department Care Team Description 07/31/2021 Anticoagulation Pharmacy Call Center [address] [facility] [place] [address] Telepharmacy, [facility] [address] [facility] [place] [address] [phone] Cerebrovascular disease, arteriosclerotic, post-stroke* Allergies Active Allergy Reactions Severity Noted Date Comments Aspirin Unknown 12/12/2007 von Willebrand's disease Salicylates 03/01/2000 von Willebrand's disease documented as of this encounter (statuses as of 07/31/2021) Medications Medication Sig Dispensed Refills Start Date [...] Anxiety. 60 Tab 3 03/24/2021 Active Nystatin 795636 UNIT/GM External Powder (Nystop) 1 harriet, Powder, [...] 2 04/29/2021 Active Vitamin D3 1.25 MG (31620 UT) Oral CapsuleIndications:Vi tamin D deficiency Take [...] as of this encounter (statuses as of 07/31/2021) Active Problems Problem Noted Date Chronic hypoxemic [...] as of this encounter (statuses as of 07/31/2021) Resolved Problems Problem Noted Date Resolved Date [...] as of this encounter (statuses as of 07/31/2021) Immunizations Name Administration Dates Next Due H1N1 [...] this encounter Progress Notes * Kim Mercado [facility] - 07/31/2021 2:40 PM EDT Images from the original note were not included. Medication Therapy Disease Management - Anticoagulation Patient: Kimberly Kendall : 1960 Contacts Type Contact Phone 07/31/2021 03:03 PM EDT Phone (Outgoing) Kimberly Kendall (Self) [phone] (M) Left Message Current Warfarin Dose As of 07/31/2021 Warfarin maintenance plan: 10 mg (5 mg x 2) every Mon, Fri; 7.5 mg (5 mg x 1 and 2.5 mg x 1) all other days Patient-Reported Symptoms: INR Result As of 07/31/2021 INR goal: 2.0-3.0 INR used for dosin.98 (07/31/2021) Warfarin Plan As of 07/31/2021 Full warfarin instructions: 07/31: 15 mg; 08/01: 15 mg; Otherwise 10 mg every Mon, Fri; 7.5 mg all other days Next INR check: 08/04/2021 Additional Dosing Information: Description GML Instructed to call clinic back if missed any doses, informed patient that we are keeping a closer check because we would like to bring that INR back into range as having a lower INR puts pt at a highe risk of a blood clot which could possibly result in a repeat stroke. Repeat PT/INR in 4 day(s) Weekly dose: not changed Oneida Akbar, Pharm. D Candidate Agree with plan as documented. Kim Mercado [facility] Clinical Pharmacist 07/31/2021, 2:59 PM documented in this encounter Plan of Treatment Upcoming Encounters Date Type Specialty Care Team Description 08/05/2021 Laboratory Laboratory [facility] Mobile Home Draw [address] [place] [address] [phone] 08/05/2021 [facility] [address] [place] [address] [phone] 08/18/2021 Telemedicine Psychiatry Hugo Alcantara MD [address] [place] [address] 09/24/2021 Office Visit Pulmonary Jesus Bonilla MD [address] [place] [address] Health Maintenance Due Date Last Done [...] Documents on File Type Date Recorded Patient Stucco Plasterer Expl 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
--- OUTSIDE RECORDS SUMMARY | 2023-07-25 04:55 | External Medical Summary | Summary of Care ---
Author Name Unknown Organization [place] [address] Care Team Providers Care Mixer Runner Name Role Phone Roger Alexandra MD Primary Care Provider [phone] Reason for Visit * Reason Onset Date Comments Fax 08/18/2021 [facility] Status Check 08/18/2021 [facility] Encounter Details Date Type Department Care Team Description 08/18/2021 Telephone Family Practice [facility] [address] [place] [address] Roger Alexandra MD [address] [facility] [place] [address] Fax (Pathema GX [...] Underwear 32 Each 2 03/18/2021 Active Nystatin 925295 UNIT/GM External Powder (Nystop) 1 harriet, Powder, [...] 0 04/23/2021 Active Vitamin D3 1.25 MG (46748 UT) Oral CapsuleIndications:Vi tamin D deficiency Take [...] 12/21/2008 Atrial septal aneurysm 02/04/2006 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 Please return call [phone] * Telephone Encounter - Deon Araiza OSA - 08/26/2021 2:50 PM EDT Cole calling to check on the status of previous messages. Forms were faxed again yesterday morningto [phone]; please confirm whether or not fax was received. Thanks. Callback#: [phone] * Telephone Encounter - Ciera Medley OSA - 08/22/2021 9:14 AM EDT Received a call asking if fax was received by office. Name/Company sending fax: [facility] What fax is pertaining to: Cardiac Genetic Testing , 6 pages Date(s) they sent request: 08/20/2021 Verified fax number they are sending to is correct (Y or N): Y Callback Number for the clinic to call to verified if fax was received: [phone] * Telephone Encounter - Ciera Medley OSA - 08/20/2021 2:33 PM EDT Received a call asking if fax was received by office. Name/Company sending fax: Cole from [facility] What fax is pertaining to: Cardiac Genetic test Date(s) they sent request: 08/19/2021 Verified fax number they are sending to is correct (Y or N): N , I just provided correct fax # on this call Callback Number for the clinic to call to verified if fax was received: [phone] * Telephone Encounter - Kim De Guzman LPN - 08/18/2021 12:07 PM EDT Pt says that she did the [employer] testing a couple of months ago and that someone from [employer] called her just now and was asking [...] Care Team Description 08/28/2021 Laboratory Laboratory Processing [facility] [place], [facility] Mobile Home Draw [address] [place] [address] [phone] 08/29/2021 [facility] [address] [place] [address] [phone] 09/24/2021 Office Visit Pulmonary Jesus Bonilla MD [address] [place], [place] [address] 09/29/2021 Telemedicine Psychiatry Hugo Alcantara MD [address] [place] [address] [phone] Health Maintenance Due Date Last Done Comments [...] Documents on File Type Date Recorded Patient Accounts Payable Supervisor Expl 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
--- OUTSIDE RECORDS SUMMARY | 2023-07-25 04:56 | External Medical Summary | Summary of Care ---
Author Name Unknown Organization [place] [address] Care Team Providers Care Law Firm Consultant Name Role Phone Jeevan Mclean MD Primary Care Provider [phone] Reason for Visit * Reason Onset Date Comments Medication Refill 07/14/2021 Encounter Details Date Type Department Care Team Description 07/14/2021 Refill Family Practice [facility] [address] [place] [id number] Jeevan Mclean MD [address] [facility] [place] [address] [phone] Chronic bilateral low back pain without sciatica Allergies Active Allergy Reactions Severity Noted Date Comments Aspirin Unknown 12/12/2007 von Willebrand's disease Salicylates 03/01/2000 von Willebrand's disease documented as of this encounter (statuses as of 07/15/2021) Medications Medication Sig Dispensed Refills Start Date [...] for Wheezing. 20 mL 1 08/23/2020 Active Warfarin Sodium 10 MG Oral Tablet Take 2 tablets on Wednesday and Wednesday, and 1.5 tablets all other days or as directed by anticoagulation pharmacist. 60 Tab 2 01/30/2021 Active Furosemide 20 MG Oral Tablet (Lasix) take 1 tablet by mouth once daily if needed (3LB WEIGHT GAIN OR LEG SWELLING) 30 Tab 2 02/09/2021 Active busPIRone HCl 10 MG Oral Tablet (Buspar) Take 1 Tab by mouth 2 times a day. 60 Tab 2 03/05/2021 Active Disposable Brief X-LargeIndication s:Overactive bladder Attends X-Large Super Absorb Underwear 32 Each 2 03/18/2021 Active hydrOXYzine HCl 50 MG Oral Tablet Take 1 Tab by mouth 3 times a day as needed for Anxiety. 60 Tab 3 03/24/2021 Active Nystatin 153701 UNIT/GM External Powder (Nystop) 1 harriet, Powder, Topical twice daily, 1 EA, 0 Refill(s), Indication: Candidiasis of Skin, Route to Pharmacy Electronically, [facility] [address], [address], 10/02/20 10:43:00 EST, Height/Length Dosing, cm, 116.3, 10/02/20 10:43:00 EST, Weight Dosing, kg 15 g 1 03/27/2021 Active guaiFENesin-Codei ne 100-10 MG/5ML Oral Syrup (Robitussin AC) Take 5 mL by mouth every 4 hours as needed for Cough. 120 mL 0 04/23/2021 Active traZODone HCl 50 MG Oral Tablet (Desyrel) Take 1 Tab by mouth at bedtime. 30 Tab 2 04/29/2021 Active Vitamin D3 1.25 MG (32755 UT) Oral CapsuleIndication s:Vitamin D deficiency Take [...] 06/18/2021 Active traMADol HCl 100 MG Oral TabletIndications :Chronic bilateral low back pain without sciatica Take 100 mg by mouth every 8 hours as needed for Pain, Moderate or Pain, Severe. 90 Tab 0 07/15/2021 Active traMADol HCl 100 MG Oral TabletIndications :Chronic bilateral low back pain without sciatica Take 100 mg by mouth every 8 hours as needed for Pain, Moderate or Pain, Severe. 90 Tab 0 06/16/2021 1 Discontinue d(Refill) documented as of this encounter (statuses as of 07/15/2021) Active Problems Problem Noted Date Chronic hypoxemic [...] as of this encounter (statuses as of 07/15/2021) Resolved Problems Problem Noted Date Resolved Date [...] as of this encounter (statuses as of 07/15/2021) Immunizations Name Administration Dates Next Due H1N1 [...] Telephone Encounter - Jeevan Mclean MD - 07/15/2021 3:51 PM EDT Signed Prescriptions: Disp Refills traMADol HCl 100 MG Oral Tablet 90 Tab 0 Sig: Take 100 mg by mouth every 8 hours as needed for Pain, Moderate or Pain, Severe. Authorizing Provider: JEEVAN MCLEAN Refused Prescriptions: Disp Refills LORazepam 0.5 MG Oral Tablet (Ativan) 90 Tab 0 Sig: Take 1 Tab by mouth 3 times a da y as needed for Anxiety. Refused By: SHIKHA ESCOBAR Reason for Refusal: Duplicate Request * Telephone Encounter - Shikha Escobar, [facility] - 07/15/2021 3:14 PM EDT Pending Prescriptions: Disp Refills traMADol HCl 100 MG Oral Tablet 90 Tab 0 Sig: Take 100 mg by mouth every 8 hours as needed for Pain, Moderate or Pain, Severe. Refused Prescriptions: Disp Refills LORazepam 0.5 MG Oral Tablet (Ativan) 90 Tab 0 Sig: Take 1 Tab by mouth 3 times a day as needed for Anxiety. Refused By: SHIKHA ESCOBAR Reason for Refusal: Duplicate Request * Telephone Encounter - Shikha Escobar RPh - 07/15/2021 3:13 PM EDT I have reviewed the patients controlled substance dispensing history in the Prescription Drug Monitoring Program in compliance with the [facility] regulations before prescribing a controlled substance. PDMP checked on 07/15/2021. Pending Prescriptions: Disp Refills traMADol HCl 100 MG Oral Tablet 90 Tab 0 Sig: Take 100 mg by mouth every 8 hours as needed for Pain, Moderate or Pain, Severe. Last Office/Telemedicine Visit: 06/12/2021 Next Office Visit: No Future Appointments Date medication was last filled: 06/17/21 Date medication is due for refill: 07/16/21 Pharmacy: [facility] [place] [address] Is this request for a controlled substance?Yes [...] Review. Please approve if appropriate. Thank you, Shikha Escobar PharmD Staff Pharmacist Refill Call Center 07/15/2021, 3:13 PM * Telephone Encounter - Solange Renee PHARM Tech - 07/15/2021 8:50 AM EDT Pt calling to check on status of traMADol . Caller can be reached at [phone].Advised pt of theprocess. Thank you, Solange Renee, [facility] 07/15/2021,8:50 AM * Telephone Encounter - Luiza Olmos PHARM Tech - 07/14/2021 9:22 AM EDT Pending Prescriptions: Disp Refills traMADol HCl 100 MG Oral Tablet 90 Tab 0 Sig: Take 100 mg by mouth every 8 hours as needed for Pain, Moderate or Pain, Severe. LORazepam 0.5 MG Oral Tablet (Ativan) 90 Tab 0 Sig: Take 1 Tab by mouth 3 times a day as needed for Anxiety. Last Office/Telemedicine Visit: 06/12/2021 Next Office Visit: No Future Appointments If no future appointments scheduled, and last appointment is greater than a year ago, please schedule patient for a follow-up appointment Last date the medication was ordered: 06/12/2021 Pharmacy: [facility] [place] [address] Is this request for a controlled substance?Yes [...] Encounters Date Type Specialty Care Team Description 07/17/2021 Telemedicine Psychiatry Alisha Gandhi, DO [address] [place] [address] 07/22/2021 Laboratory Laboratory Processing [facility], [facility] Mobile Home Draw [address] [place] [address] [phone] 07/23/2021 [facility] [address] [place] [address] [phone] 09/24/2021 Office Visit Pulmonary [facility] [address] [facility] [address] Health Maintenance Due Date Last [...] Documents on File Type Date Recorded Patient Mangle Tender Cloth Expl 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
--- OUTSIDE RECORDS SUMMARY | 2023-07-25 04:56 | External Medical Summary | Summary of Care ---
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 60 Tab 3 03/24/2021 Active Nystatin 520838 UNIT/GM External Powder (Nystop) 1 harriet, Powder, [...] 2 04/29/2021 Active Vitamin D3 1.25 MG (48079 UT) Oral CapsuleIndications: Vitamin D deficiency Take 1 Cap by mouth once a week. 4 Cap 3 05/02/2021 Active Vitamin D (Cholecalciferol) 25 MCG (1000 UT) Oral Capsule Take 1 Cap by mouth daily. 30 Cap 5 05/05/2021 Active Isosorbide Mononitrate ER 30 MG Oral Tablet Extended Release 24 Hour (Imdur) take 1 tablet by mouth daily 30 Tab 5 05/20/2021 Active LORazepam 0.5 MG Oral Tablet (Ativan) Take 1 Tab by mouth 3 times a day as needed for Anxiety. 90 Tab 0 06/12/2021 Active Arnuity Ellipta 100 MCG/ACT Inhalation Aerosol Powder Breath Activated (fluticasone Furoate) DAILY 0 05/25/2021 Active Anoro Ellipta 62.5-25 MCG/INH Inhalation Aerosol Powder Breath Activated (umeclidinium-vilan terol) Inhale 1 Puff by mouth daily. 30 Each 11 06/12/2021 Active traMADol HCl 100 MG Oral TabletIndications:C hronic bilateral low back pain without sciatica Take 100 mg by mouth every 8 hours as needed for Pain, Moderate or Pain, Severe. 90 Tab 0 06/16/2021 Active FLUoxetine HCl 40 MG Oral Capsule (PROzac) Take 1 Cap by mouth daily. In the morning. 30 Cap 2 06/18/2021 Active traZODone HCl 50 MG Oral Tablet (Desyrel) Take 1 Tab by mouth at bedtime. 30 Tab 2 06/18/2021 Active documented as of this encounter (statuses as of 07/09/2021) Active Problems Problem Noted Date Chronic hypoxemic [...] as of this encounter (statuses as of 07/09/2021) Resolved Problems Problem Noted Date Resolved Date [...] as of this encounter (statuses as of 07/09/2021) Immunizations Name Administration Dates Next Due H1N1 [...] Progress Notes * Kim Mercado RPh - 07/09/2021 3:23 PM EDT Images from the original note were not included. Medication Therapy Disease Management - Anticoagulation Patient: Kimberly Kendall : 1960 Contacts Type Contact Phone 07/09/2021 03:25 PM EDT Phone (Outgoing) Kimberly Kendall (Self) [phone] (M) Spoke to Patient Current Warfarin Dose As of 07/09/2021 Warfarin maintenance plan: No maintenance plan Patient-Reported Symptoms: Patient Findings Positives: Bruising Negatives: Signs/symptoms of thrombosis, Signs/symptoms of bleeding, Change in health, Change in alcohol use, Change in activity, Upcoming invasive procedure, Missed doses, Extra doses, Change in medications, Change in diet/appetite Comments: Pt has bruise on leg, states it appears the same. Advised to monitor and call us if it gets larger/darker. INR Result As of 07/09/2021 INR goal: 2.0-3.0 INR used for dosin.44 (07/09/2021) Warfarin Plan As of 07/09/2021 Full warfarin instructions: 07/09: 10 mg; 07/10: 10 mg; 07/11: 5 mg; 07/12: 10 mg; 07/13: 5 mg Next INR check: 07/14/2021 Additional Dosing Information: Description GML Repeat PT/INR in 5 day(s) Weekly dose: establishing Kim Mercado RPh Clinical Pharmacist 07/09/2021, 3:27 PM documented in this encounter Plan of Treatment Upcoming Encounters Date Type Specialty Care Team Description 07/17/2021 Telemedicine Psychiatry Alisha Gandhi, DO [address] [facility] [place] [address] 09/24/2021 Office Visit Pulmonary Jesus Bonilla MD [address] [facility] [place] [address] Health Maintenance Due [...] as of this encounter Visit Diagnoses Diagnosis [facility] current use of anticoagulant therapy- Primary documented in this encounter Advance Directives Documents on File Type Date Recorded 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
--- OUTSIDE RECORDS SUMMARY | 2023-07-25 04:56 | External Medical Summary | Summary of Care ---
Author Name Unknown Organization [place] [address] Care Team Providers Care Property Analyst Name Role Phone Roger Alexandra MD Primary Care Provider [phone] Reason for Visit * Reason Onset Date Comments Advice 07/11/2021 Encounter Details Date Type Department Care Team Description 07/11/2021 Telephone Family Practice [facility] [address] [place] [id number] Roger Alexandra MD [address] [place] [address] [phone] Advice Allergies Active Allergy Reactions Severity Noted Date Comments Aspirin Unknown 12/12/2007 von Willebrand's disease Salicylates 03/01/2000 von Willebrand's disease documented as of this encounter (statuses as of 07/17/2021) Medications Medication Sig Dispensed Refills Start Date [...] Anxiety. 60 Tab 3 03/24/2021 Active Nystatin 746234 UNIT/GM External Powder (Nystop) 1 harriet, Powder, [...] 2 04/29/2021 Active Vitamin D3 1.25 MG (50518 UT) Oral CapsuleIndications: Vitamin D deficiency Take [...] as of this encounter (statuses as of 07/17/2021) Active Problems Problem Noted Date Chronic hypoxemic [...] as of this encounter (statuses as of 07/17/2021) Resolved Problems Problem Noted Date Resolved Date [...] as of this encounter (statuses as of 07/17/2021) Immunizations Name Administration Dates Next Due H1N1 [...] Encounter - Angela May MED ASSIST - 07/17/2021 3:20 PM EDT Lift chair ordered and faxed. Med list faxed. * Telephone Encounter - Roger Alexandra MD - 07/11/2021 2:56 PM EDT Can someone find out what I have to write in the order and what diagnosis I need to link it to? * Telephone Encounter - Temi West LPN - 07/11/2021 2:27 PM EDT Alisha OT calling from [facility] Calling to get extended visits one time for one week to f/u with equipment that Alisha ordered for the pt. Requesting a script to be sent to [facility] office of aging for a lift chair. States that script would be made attention to [facility]. Also requests that an updated med list for pt is faxed to them at [phone]. Alisha is requesting a return phone call to [phone] once the orders are placed. Please advise. * Telephone Encounter - Deon Araiza OSA - 07/11/2021 2:25 PM EDT Reason for patient's call: Alisha calling from [facility] Home Health requesting to speak with a nurse Caller was transferred to Temi at the nurse line. documented in this encounter Plan of Treatment Upcoming Encounters Date Type Specialty Care Team Description 07/22/2021 Laboratory Laboratory [facility] Mobile Home Draw [address] [place] [address] [phone] 07/23/2021 [facility] [address] [facility] [place] [address] [phone] 08/21/2021 Telemedicine Psychiatry Alisha Gandhi, [address] [place] [address] 09/24/2021 Office Visit Pulmonary [facility] [address] [facility] [address] Health Maintenance Due Date Last Done [...] as of this encounter Visit Diagnoses Diagnosis Morbid obesity due to excess calories (HCC)- Primary Chronic hypoxemic respiratory failure (HCC) Chronic respiratory failure Oxygen dependent Dependence on supplemental oxygen Chronic bilateral low back pain without sciatica Bilateral leg edema Edema Cerebrovascular disease, arteriosclerotic, post-stroke Cerebral atherosclerosis Hemiplegia (HCC) Hemiplegia, unspecified, affecting unspecified side documented in this encounter Advance Directives Documents on File Type Date Recorded 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
--- OUTSIDE RECORDS SUMMARY | 2023-07-25 04:56 | External Medical Summary | Summary of Care ---
Author Name Unknown Organization [facility] Address [place] [address] Care Team Providers Care Life Tester [employer] Name Role Phone Roger Alexandra MD Primary Care Provider [phone] [phone] Reason for Visit * Reason Comments Dosage Adjustment Via Phone (anticoag Cl inic) Encounter Details Date Type Department Care Team Description 07/22/2021 Anticoagulation Pharmacy Call Center [address] [facility] [place] [address] Telepharmacy, [facility] [address] [facility] [place] [address] [phone] jail current use of anticoagulant therapy* Allergies Active Allergy Reactions Severity Noted Date Comments Aspirin Unknown 12/12/2007 von Willebrand's disease Salicylates 03/01/2000 von Willebrand's disease documented as of this encounter (statuses as of 07/22/2021) Medications Medication Sig Dispensed Refills Start Date [...] Anxiety. 60 Tab 3 03/24/2021 Active Nystatin 078431 UNIT/GM External Powder (Nystop) 1 harriet, Powder, [...] 2 04/29/2021 Active Vitamin D3 1.25 MG (94829 UT) Oral CapsuleIndications:Vi tamin D deficiency Take [...] as of this encounter (statuses as of 07/22/2021) Active Problems Problem Noted Date Chronic hypoxemic [...] as of this encounter (statuses as of 07/22/2021) Resolved Problems Problem Noted Date Resolved Date [...] as of this encounter (statuses as of 07/22/2021) Immunizations Name Administration Dates Next Due H1N1 [...] this encounter Progress Notes * Kim Mercado, [facility] - 07/22/2021 3:28 PM EDT Medication Therapy Disease Management - Anticoagulation Patient: Kimberly Kendall : 1960 Contacts Type Contact Phone 07/22/2021 03:28 PM EDT Phone (Outgoing) EnochKimberly (Self) [phone] (M) Spoke to Patient Current Warfarin Dose As of 07/22/2021 Warfarin maintenance plan: 10 mg (5 mg x 2) every Mon, Fri; 7.5 mg (5 mg x 1 and 2.5 mg x 1) all other days Patient-Reported Symptoms: Patient Findings Positives: Missed doses Negatives: Signs/symptoms of thrombosis, Signs/symptoms of bleeding, Change in health, Change in alcohol use, Change in activity, Upcoming invasive procedure, Extra doses, Change in medications, Change in diet/appetite, Bruising Comments: Pt didn't realize new pill box had PM slot and missed 4 days of Warfarin last week. [facility] nurse realized and helped patient with pill box. Pt took normal dose on 07/20 and 07/21. Pt states HHnurse will be back tonight. Tried to reach nurse via phone, HH unable to contact and asked me to fax order for bolus. INR Result As of 07/22/2021 INR goal: 2.0-3.0 INR used for dosing: No new INR was available at the time of this encounter. Warfarin Plan As of 07/22/2021 Full warfarin instructions: 07/22: 12.5 mg; Otherwise 10 mg every Mon, Fri; 7.5 mg all other days Next INR check: 07/24/2021 Additional Dosing Information: Description GML Repeat PT/INR in 2 day(s) Weekly dose: not changed Kim Mercado RPh Clinical Pharmacist 07/22/2021, 3:32 PM * Christine Camejo OSA - 07/22/2021 2:50 PM EDT GML is now scheduled to draw . Please advise patient if dosing is needed. documented in this encounter Plan of Treatment Upcoming Encounters Date Type Specialty Care Team Description 07/24/2021 Laboratory Laboratory Processing [facility], [facility] Mobile Home Draw [address] [place] [address] 07/24/2021 [facility] [address] [place] [address] [phone] 08/21/2021 Telemedicine Psychiatry Alisha Gandhi [address] [place] [address] 09/24/2021 Office Visit Pulmonary Jesus Bonilla MD [address] [place] [facility] [place] [address] Health Maintenance Due Date Last Done [...] as of this encounter Visit Diagnoses 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
--- OUTSIDE RECORDS SUMMARY | 2023-07-25 04:56 | External Medical Summary | Summary of Care ---
Author Name Unknown Organization [place] [address] Care Team Providers Care Surgical Clinical Reviewer Name Role Phone Roger Alexandra MD Primary Care Provider [phone] [phone] Reason for Visit * Reason Onset Date Comments Appointment 07/15/2021 Encounter Details Date Type Department Care Team Description 07/15/2021 Telephone Psychiatry, [facility] [address] [place], [place] [id number] Alisha Gandhi, DO [address] [place] [address] Appointment Allergies Active Allergy Reactions Severity Noted [...] Anxiety. 60 Tab 3 03/24/2021 Active Nystatin 646064 UNIT/GM External Powder (Nystop) 1 harriet, Powder, [...] 2 04/29/2021 Active Vitamin D3 1.25 MG (14631 UT) Oral CapsuleIndications: Vitamin D deficiency Take [...] at bedtime. 30 Tab 2 06/18/2021 Active LORazepam 0.5 MG Oral Tablet (Ativan) Take 1 Tab by mouth 3 times a day as needed for Anxiety. 90 Tab 0 07/15/2021 Active documented as of this encounter (statuses [...] encounter Miscellaneous Notes * Telephone Encounter - Luz Antoine OSA - 07/15/2021 12:10 PM EDT Called patient to confirm date/time/location, review demographics and insurance. documented in this encounter Plan of Treatment Upcoming Encounters Date Type Specialty Care Team Description 07/17/2021 Telemedicine Psychiatry Alisha Gandhi DO [address] [place] [address] [phone] 07/22/2021 Laboratory Laboratory Processing [facility], [facility] Mobile Home Draw [address] [place] [address] [phone] 07/23/2021 [facility] [address] [place] [address] [phone] 09/24/2021 Office Visit Pulmonary Jesus Bonilla MD [address] [facility] [place] [address] Health Maintenance Due Date Last Done Comments [...] on File Type Date Recorded 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
--- OUTSIDE RECORDS SUMMARY | 2023-07-25 04:56 | External Medical Summary ---
Author Name Unknown Address Unknown Organization [facility] [address] [place] [address] Laboratory Report Ordering Provider Test Date Status SUMAN STANFORD 07/24/2021 10:36:00 Final Observation Date Value Abnormality Reference (Units ) Status PT 07/24/2021 10:36:00 13.6 11.5-14.6 (seconds) Final INR 07/24/2021 10:36:00 1.03 0.84-1.14 Final Performing Location [facility] [address] [place] [address]
--- OUTSIDE RECORDS SUMMARY | 2023-07-25 04:56 | External Medical Summary ---
Author Name Unknown Address Unknown Organization [facility] [address] [place] [address] Laboratory Report Ordering Provider Test Date Status SUMAN STANFORD 07/14/2021 12:18:00 Final Observation Date Value Abnormality Reference (Units ) Status PT 07/14/2021 12:18:00 24.9 Above high normal 11 .5-14.6 (seconds) Final INR 07/14/2021 12:18:00 2.22 Above high normal 0. 84-1.14 Final Performing Location [facility] [address] [place] [address]
--- OUTSIDE RECORDS SUMMARY | 2023-07-25 04:56 | External Medical Summary | Summary of Care ---
Author Name Unknown Organization [place] [address] Care Team Providers Care Ehs Teacher Name Role Phone Roger Alexandra MD Primary Care Provider [phone] [phone] Reason for Visit * Reason Onset Date Comments Medication Refill 07/15/2021 Encounter Details Date Type Department Care Team Description 07/15/2021 Refill [facility] [address], [place] [id number] [facility] [address], [place] [id number] Allergies Active Allergy Reactions Severity Noted Date [...] Anxiety. 60 Tab 3 03/24/2021 Active Nystatin 402921 UNIT/GM External Powder (Nystop) 1 harriet, Powder, Topical twice daily, 1 EA, 0 Refill(s), Indication: Candidiasis of Skin, Route to Pharmacy Electronically, [facility] [address], [address], 10/02/20 10:43:00 EST, Height/Length Dosing, cm, [...] 2 04/29/2021 Active Vitamin D3 1.25 MG (87965 UT) Oral CapsuleIndication s:Vitamin D deficiency Take [...] 06/12/2021 Active traMADol HCl 100 MG Oral TabletIndications [...] for Anxiety. 90 Tab 0 07/15/2021 Active LORazepam 0.5 MG Oral Tablet (Ativan) Take 1 Tab by mouth 3 times a day as needed for Anxiety. 90 Tab 0 06/12/2021 1 Discontinue d(Refill) documented as of this [...] Telephone Encounter - Cindy Gandhi DO - 07/15/2021 10:59 AM EDT Signed Prescriptions: Disp Refills LORazepam 0.5 MG Oral Tablet (Ativan) 90 Tab 0 Sig: Take 1 Tab by mouth 3 times a day as needed for Anxiety. Authorizing Provider: CINDY GANDHI * Telephone Encounter - Renata Quintana OSA - 07/15/2021 10:18 AM EDT Patient calling for refill on Ativan. Patient last seen on 06/18/2021 with return appointment scheduled for 07/17/2021. Patient had 0 cancelled appointments and 0 NO SHOW appointments. Medication was last filled on 06/12/2021 with 0 refills. documented in this encounter Plan of Treatment Upcoming Encounters Date Type Specialty Care Team Description 07/17/2021 Telemedicine Psychiatry Cindy Gandhi DO [address] [place] [address] [phone] 07/22/2021 Laboratory Laboratory Processing Gm, [facility] Draw [address] [place] [address] [phone] 07/23/2021 [facility]ly [facility] [address] [facility] [place] [address] [phone] 09/24/2021 Office Visit Pulmonary Jesus Bonilla MD [address] [place] [id number] Health Maintenance Due Date Last Done Comments [...] on File Type Date Recorded 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
--- OUTSIDE RECORDS SUMMARY | 2023-07-25 04:56 | External Medical Summary | Summary of Care ---
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 60 Tab 3 03/24/2021 Active Nystatin 284986 UNIT/GM External Powder (Nystop) 1 harriet, Powder, [...] 2 04/29/2021 Active Vitamin D3 1.25 MG (73207 UT) Oral CapsuleIndications: Vitamin D deficiency Take [...] as of this encounter (statuses as of 07/08/2021) Active Problems Problem Noted Date Chronic hypoxemic [...] as of this encounter (statuses as of 07/08/2021) Resolved Problems Problem Noted Date Resolved Date [...] as of this encounter (statuses as of 07/08/2021) Immunizations Name Administration Dates Next Due H1N1 [...] Progress Notes * Kim Mercado RPh - 07/08/2021 3:32 PM EDT Medication Therapy Disease Management - Anticoagulation Patient: Kimberly Kendall : 1960 Current Warfarin Dose As of 07/08/2021 Warfarin maintenance plan: No maintenance plan Patient-Reported Symptoms: Patient Findings Positives: Other complaints Negatives: Signs/symptoms of thrombosis, Signs/symptoms of bleeding, Change in health, Change in alcohol use, Change in activity, Upcoming invasive procedure, Missed doses, Extra doses, Change in medications, Change in diet/appetite, Bruising Comments: Pt states GML came today but was unable to draw blood. Will be back tomorrow to retry. [facility] will follow up after INR received. INR Result As of 07/08/2021 INR goal: 2.0-3.0 INR used for dosing: No new INR was available at the time of this encounter. Warfarin Plan As of 07/08/2021 Full warfarin instructions: 07/08: 5 mg Next INR check: 07/09/2021 Additional Dosing Information: Description GML Repeat PT/INR in 1 day(s) Kim Mercado RPh Clinical Pharmacist 07/08/2021, 3:32 PM * Angela Whalen TECH - 07/08/2021 1:46 PM EDT Spoke with Caitlin in client services. Draw today was cancelled. Time of call, draw was not rescheduled yet. JOHNY Soriano documented in this encounter Plan of Treatment Upcoming Encounters Date Type Specialty Care Team Description 07/09/2021 [facility] [address] [facility] [place] [address] [phone] 07/17/2021 Telemedicine Psychiatry Alisha Gandhi, DO [address] [facility] [place] [address] 09/24/2021 Office Visit Pulmonary Jesus Bonilla MD [address] [place] [address] Health Maintenance Due Date Last Done [...] of this encounter Visit Diagnoses Diagnosis intermediate current use of anticoagulant therapy- Primary documented in this encounter Advance Directives Documents on File Type Date Recorded Patient Hooker Inspector Expl 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
--- OUTSIDE RECORDS SUMMARY | 2023-07-25 04:56 | External Medical Summary ---
Author Name Unknown Address Unknown Organization [facility] [address] [place] [id number] Laboratory Report Ordering Provider Test Date Status SUMAN STANFORD 07/09/2021 11:04:00 Final Observation Date Value Abnormality Reference (Units ) Status PT 07/09/2021 11:04:00 17.7 Above high normal 11 .5-14.6 (seconds) Final INR 07/09/2021 11:04:00 1.44 Above high normal 0. 84-1.14 Final Performing Location [facility] [address] [place] [address]
--- OUTSIDE RECORDS SUMMARY | 2023-07-25 04:56 | External Medical Summary | Summary of Care ---
Author Name Unknown Organization [place] [address] Care Team Providers Care Candles Pourer Name Role Phone Roger Alexandra MD Primary Care Provider [phone] [phone] Reason for Visit * Reason Onset Date Comments Advice 07/20/2021 Encounter Details Date Type Department Care Team Description 07/20/2021 Telephone Family Practice [facility] [address] [place] [id number] Roger Alexandra MD [address] [place] [address] [phone] Advice Allergies Active Allergy Reactions Severity Noted [...] Anxiety. 60 Tab 3 03/24/2021 Active Nystatin 947225 UNIT/GM External Powder (Nystop) 1 harriet, Powder, [...] 2 04/29/2021 Active Vitamin D3 1.25 MG (76472 UT) Oral CapsuleIndication s:Vitamin D deficiency Take [...] 07/15/2021 Active Warfarin Sodium 5 MG Oral TabletIndications :Paroxysmal atrial fibrillation (HCC) 10 mg today, then 10mg every Wed, Wed; 7.5 mg all other days 60 Tab 0 07/20/2021 Active Warfarin Sodium 10 MG Oral Tablet Take 2 tablets on Wednesday and Wednesday, and 1.5 tablets all other days or as directed by anticoagulation pharmacist. 60 Tab 2 01/30/2021 Discontinue d(Medicatio n/Dose Changed) documented as of [...] Telephone Encounter - Kim Mercado RPh - 07/22/2021 10:23 AM EDT Noted. GML is drawing INR today, [facility] will follow up with patient once lab received and advise dosing. Rx sent to pharmacy per chart review. Kim Mercado Rph, Pharm.D. Clinical Pharmacist Telepharmacy 07/22/2021,10:24 AM * Telephone Encounter - Kay Velez MD - 07/20/2021 3:18 PM EDT Noted as below, OK for 2 additional nurse visits. Pharmacy selected--see RX- will be 5 mg tabs and notify nurse CC-MTM clinic reg Timing next INR. * Telephone Encounter - Brianna Aguilar LPN - 07/20/2021 2:37 PM EDT Spoke with Gracie, nurse from [facility]. She was out to do a visit today with patient and found that patient had not taken her warfarin since Wednesday07/15/21. She talked with the patient to tryto figure out why she hadn't been taking it and patient said she didn't realize that there were pills in the PM section of her pill service planner that she was to be taking. Gracie provided education and also helped the patient to set an alarm on her phone to go off every evening at 7 pm to remind her to take her warfarin. Gracie said the patient told her that she was due for an INR draw by home phlebotomy tomorrow. Review of chart looks like patient is scheduled for a Wednesday draw? Gracie is able to do a pro-time today if the provider would like her to. Discussed with Dr. Velez- no pro-time today. Dr. Velez would like patient to take warfarin 10mg today and resume her normal dosing of 10 mg Wed and Wednesday, 7.5 mg all other days as previously ordered by coag clinic in note dated 07/14. I relayed this change to Gracie. Current Epic dose is not what patient had in her pill service planner at the house. Gracie placed correct warfarin dosing for today and tomorrow in patient's pill service planner. Patient will need refills of both warfarin 5 mg and 2.5 mg tabs sent to [facility]. Gracie asking for a verbalorder for 2 more home visits this week (Wednesday and Wednesday) to make sure patient is taking medication as prescribed. Dr. Velez okayed additional visit. If there are any changes to her warfarin dosing, please notify patient and fax change to [facility] home health at [phone]. * Telephone Encounter - Naina Cortez OSA - 07/20/2021 2:16 PM EDT Reason for patient's call: Asking to speak with a nurse Caller was transferred to Brianna at the nurse line. documented in this encounter Plan of Treatment Upcoming Encounters Date Type Specialty Care Team Description 07/22/20[facility] [address] [place] [address] [phone] 08/21/2021 Telemedicine Psychiatry Gandhi, Alisha Paty, DO [address] [facility] [place] [address] 09/24/2021 Office Visit Pulmonary Jesus Bonilla MD [address] [place] [id number] Health Maintenance Due Date Last Done Comments [...] Primary Atrial fibrillation documented in this encounter Advance Directives Documents on File Type Date Recorded Patient Glazier Helper Expl 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
--- OUTSIDE RECORDS SUMMARY | 2023-07-25 04:56 | External Medical Summary ---
Author Name Unknown Address Unknown Organization [facility] [address] [place] [address] Laboratory Report Ordering Provider Test Date Status SUMAN STANFORD 07/31/2021 10:25:00 Final Observation Date Value Abnormality Reference (Units ) Status PT 07/31/2021 10:25:00 13.1 11.5-14.6 (seconds) Final INR 07/31/2021 10:25:00 0.98 0.84-1.14 Final Performing Location [facility] [address] [place] [address]
--- OUTSIDE RECORDS SUMMARY | 2023-07-25 04:56 | External Medical Summary | Summary of Care ---
Author Name Unknown Organization [facility] Address [place] [address] Care Team Providers Care Closed Circuit Screen Watcher Name Role Phone Roger Alexandra MD Primary Care Provider [phone] Reason for Visit * Reason Comments Dosage Adjustment Via Phone (anticoag Cl inic) Encounter Details Date Type Department Care Team Description 07/14/2021 Anticoagulation Pharmacy Call Center [address] [facility] [place] [address] Telepharmacy, [facility] [address] [facility] [place] [address] [phone] buttermaker continuous churn current use of anticoagulant therapy* Allergies Active Allergy Reactions Severity Noted Date Comments Aspirin Unknown 12/12/2007 von Willebrand's disease Salicylates 03/01/2000 von Willebrand's disease documented as of this encounter (statuses as of 07/14/2021) Medications Medication Sig Dispensed Refills Start Date [...] Anxiety. 60 Tab 3 03/24/2021 Active Nystatin 508676 UNIT/GM External Powder (Nystop) 1 harriet, Powder, [...] 2 04/29/2021 Active Vitamin D3 1.25 MG (10044 UT) Oral CapsuleIndications: Vitamin D deficiency Take [...] as of this encounter (statuses as of 07/14/2021) Active Problems Problem Noted Date Chronic hypoxemic [...] as of this encounter (statuses as of 07/14/2021) Resolved Problems Problem Noted Date Resolved Date [...] as of this encounter (statuses as of 07/14/2021) Immunizations Name Administration Dates Next Due H1N1 [...] Progress Notes * Kim Mercado RPh - 07/14/2021 2:05 PM EDT Medication Therapy Disease Management - Anticoagulation Patient: Kimberyl Kendall : 1960 Contacts Type Contact Phone 07/14/2021 02:07 PM EDT Phone (Outgoing) WeberKimberly mcdonnell (Self) [phone] (M) Spoke to Patient Current Warfarin Dose As of 07/14/2021 Warfarin maintenance plan: 10 mg (5 mg x 2) every Mon, Fri; 7.5 mg (5 mg x 1 and 2.5 mg x 1) all other days Patient-Reported Symptoms: Patient Findings Negatives: Signs/symptoms of thrombosis, Signs/symptoms of bleeding, Change in health, Change in alcohol use, Change in activity, Upcoming invasive procedure, Missed doses, Extra doses, Change in medications, Change in diet/appetite, Bruising INR Result As of 07/14/2021 INR goal: 2.0-3.0 INR used for dosin.22 (07/14/2021) Warfarin Plan As of 07/14/2021 Full warfarin instructions: 10 mg every Mon, Fri; 7.5 mg all other days Next INR check: 07/22/2021 Additional Dosing Information: Description GML Repeat PT/INR in 1 week(s) Weekly dose: establishing Kim Mercado RPh Clinical Pharmacist 07/14/2021, 2:07 PM documented in this encounter Plan of Treatment Upcoming Encounters Date Type Specialty Care Team Description 07/17/2021 Telemedicine Psychiatry [place] Alisha Paty, DO [address] [facility] [place] [address] [phone] 07/23/2021 [facility] [address] [facility] [place] [address] [phone] 09/24/2021 Office Visit Pulmonary Jesus Bonilla MD [address] [facility] [place] [address] Health Maintenance Due Date [...] as of this encounter Visit Diagnoses Diagnosis buttermaker continuous churn current use of anticoagulant therapy- Primary documented in this encounter Advance Directives Documents on File Type Date Recorded Patient Emulsion Operator Expl 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
--- OUTSIDE RECORDS SUMMARY | 2023-07-25 04:56 | External Medical Summary | Summary of Care ---
Author Name Unknown Organization [facility] Address [place] [address] Care Team Providers Care Housekeeping/Laundry Name Role Phone Roger Alexandra MD Primary Care Provider [phone] Reason for Visit * Reason Comments Dosage Adjustment Via Phone (anticoag Cl inic) Encounter Details Date Type Department Care Team Description 07/24/2021 Anticoagulation Pharmacy Call Center [address] [facility] [place] [address] Telepharmacy, Psychiatric [address] [facility] [place] [address] [phone] penitentiary current use of anticoagulant therapy* Allergies Active Allergy Reactions Severity Noted Date Comments Aspirin Unknown 12/12/2007 von Willebrand's disease Salicylates 03/01/2000 von Willebrand's disease documented as of this encounter (statuses as of 07/24/2021) Medications Medication Sig Dispensed Refills Start Date [...] Anxiety. 60 Tab 3 03/24/2021 Active Nystatin 350576 UNIT/GM External Powder (Nystop) 1 harriet, Powder, [...] 2 04/29/2021 Active Vitamin D3 1.25 MG (78634 UT) Oral CapsuleIndications:Vi tamin D deficiency Take [...] as of this encounter (statuses as of 07/24/2021) Active Problems Problem Noted Date Chronic hypoxemic [...] as of this encounter (statuses as of 07/24/2021) Resolved Problems Problem Noted Date Resolved Date [...] as of this encounter (statuses as of 07/24/2021) Immunizations Name Administration Dates Next Due H1N1 [...] this encounter Progress Notes * Kim Mercado, [facility] - 07/24/2021 2:13 PM EDT Images from the original note were not included. Medication Therapy Disease Management - Anticoagulation Patient: Kimberly Kendall : 1960 Contacts Type Contact Phone 07/24/2021 02:17 PM EDT Phone (Outgoing) Kimberly Kendall (Self) [phone] (M) Spoke to Patient 07/24/2021 03:37 PM EDT Phone (Outgoing) Kimberly Kendall (Self) [phone] (M) Spoke to Patient Current Warfarin Dose As of 07/24/2021 Warfarin maintenance plan: 10 mg (5 mg x 2) every Mon, Fri; 7.5 mg (5 mg x 1 and 2.5 mg x 1) all other days Patient-Reported Symptoms: Patient Findings Negatives: Signs/symptoms of thrombosis, Signs/symptoms of bleeding, Change in health, Change in alcohol use, Change in activity, Upcoming invasive procedure, Missed doses, Extra doses, Change in medications, Change in diet/appetite, Bruising Comments: Pt napping, asks we call back after 3pm INR Result As of 07/24/2021 INR goal: 2.0-3.0 INR used for dosin.03 (07/24/2021) Warfarin Plan As of 07/24/2021 Full warfarin instructions: 07/24: 15 mg; 07/25: 15 mg; Otherwise 10 mg every Mon, Fri; 7.5 mg all other days Next INR check: 07/31/2021 Additional Dosing Information: Description GML Repeat PT/INR in 1 week(s) Weekly dose: not changed Kim Mercado RPh Clinical Pharmacist 07/24/2021, 2:18 PM documented in this encounter Plan of Treatment Upcoming Encounters Date Type Specialty Care Team Description 07/31/2021 Laboratory Laboratory Processing [facility] Draw [address] [place] [address] 08/01/2021 [facility] [address] [place] [address] [phone] 08/21/2021 Telemedicine Psychiatry Alisha Gandhi DO [address] [place], [place] [id number] 09/24/2021 Office Visit Pulmonary Jesus Bonilla MD [address] [facility] [place] [address] [phone] Health Maintenance Due Date Last Done Comments [...] as of this encounter Visit Diagnoses Diagnosis penitentiary current use of anticoagulant therapy- Primary documented in this encounter Advance Directives Documents on File Type Date Recorded Patient Photogrammetric Surveyor Expl 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
--- OUTSIDE RECORDS SUMMARY | 2023-07-25 04:56 | External Medical Summary | Summary of Care ---
Author Name Unknown Organization [place] [address] Care Team Providers Care Mushroom Grower Name Role Phone Roger Alexandra MD Primary Care Provider [phone] Reason for Visit * Reason Comments Anxiety Depression Encounter Details Date Type Department Care Team Description 07/17/2021 Telemedicine Psychiatry, [facility] [address] [place], [place] [id number] Alisha Gandhi, DO [address] [facility] [place] [address] SIMA (generalized anxiety disorder)*; Major depressive disorder, recurrent episode, moderate (HCC) Allergies Active Allergy [...] Anxiety. 60 Tab 3 03/24/2021 Active Nystatin 637934 UNIT/GM External Powder (Nystop) 1 harriet, Powder, [...] 2 04/29/2021 Active Vitamin D3 1.25 MG (25552 UT) Oral CapsuleIndications: Vitamin D deficiency Take [...] 06/18/2021 Active traMADol HCl 100 MG Oral TabletIndications:C [...] as of this encounter Progress Notes * Alisha Gandhi, DO - 07/17/2021 8:34 AM EDT After connecting through [facility], patient was verified with two unique identifiers. Patient (or authorized legal human resources hr representative) was then informed that this was a Telemedicine visit and being conducted confidentially over secure lines. Methods to assure confidentiality were taken. Patient acknowledged consent and understanding of privacy and security of the Telemedicine visit. The patient agreed to participate. PSYCHOTHERAPY & MEDICATION MANAGEMENT RETURN VISIT NOTE Psychiatry, [facility] [address] [facility] [address] 07/17/2021 Kimberly Kendall CHIEF COMPLAINT: depression and anxiety INTERVAL HISTORY: Kimberly has been feeling stressed. She does get excited about seeing her grandchildren. They are all adults and can drive. She tries to do her leg exercises 3 times per day. She showers irregularly. Her appetite is low. She denies suicidal ideation/plan/intent. No HI/AVH. No paranoid ideations or delusions. OBJECTIVE DATA: COLUMBIA-SUICIDE SEVERITY RATING SCALE Have you ever wished that you were , or not alive anymore? Sometimes feeling hopeless Have you actually had thoughts about killing yourself? no Have you been thinking about how you might do this? no Have you had these thoughts and had some intention of acting on them? no Have you started to work out or worked out the details of how to kill yourself? no Do you intend to carry out this plan? no Have you done anything, started to do anything, or prepared to do anything to end your life? no Low Risk Reviewed crisis plan with patient including suicide hotline, text line or my office number Discussed risk/protective factors and reasons for living SIGECAPS: - Sleep: Difficult - Interest: normal - Guilt: No - Energy: decreased - Concentration: ok - Appetite: decreased - Psychomotor Activity: normal - Psychosis: no Anxiety: - Excessive Worry- Yes No observed or reported side effects to current medications SUBSTANCE ABUSE:Unremarkable RELEVANT PAST PSYCHIATRIC, MEDICAL, FAMILY OR SOCIAL HX: No new changes CURRENT MEDS: Current Outpatient Medications Medication Sig Dispense Refill LORazepam 0.5 MG Oral Tablet (Ativan) Take 1 Tab by mouth 3 times a day as needed for Anxiety. 90 Tab 0 traMADol HCl 100 MG Oral Tablet Take 100 mg by mouth every 8 hours as needed for Pain, Moderate or Pain, Severe. 90 Tab 0 FLUoxetine HCl 40 MG Oral [...] 30 Cap 5 Vitamin D3 1.25 MG (59576 UT) Oral Capsule Take 1 Cap by mouth once a week. 4 Cap 3 traZODone HCl 50 MG Oral Tablet (Desyrel) Take 1 Tab by mouth at bedtime. 30 Tab 2 guaiFENesin-Codeine 100-10 MG/5ML Oral Syrup (Robitussin AC) Take 5 mL by mouth every 4 hours as needed for Cough. 120 mL 0 Nystatin 845318 UNIT/GM External Powder (Nystop) 1 harriet, Powder, Topical twice daily, 1 EA, 0 Refill(s), Indication: Candidiasis of Skin, Route to Pharmacy Electronically, [facility] - [address], [address], 10/02/20 10:43:00 [...] GAIN OR LEG SWELLING) 30 Tab 2 Warfarin Sodium 10 MG Oral Tablet Take 2 tablets on Wednesday and Wednesday, and 1.5 tablets all other days or as directed by anticoagulation pharmacist. 60 Tab 2 Albuterol Sulfate (2.5 MG/3ML) 0.083% [...] day as needed and at bedtime LABS: No new labs to review MENTAL STATUS EVALUATION: Appearance:age-appropriate and casually dressed Muscle strength/tone and motor behavior:not tested Gait and Station:not tested Personal Presentation:open and friendly. Behavior:cooperative Speech:normal, rate, tone and volume and goal directed Mood:anxiousand depressed Affect: type -dysthymic; range -full range; lability -no Associations:intact Thought Process:goal directed Abstract Reasoning:intact Thought Content:denies suicidal ideations, homicidal ideations, auditory hallucinations, visualhallucinations, delusions, impulsivity to act out or preoccupation with violence Orientation:alert and oriented to person, place, time and situation Recent and remote memory as evidenced by recall of recent circumstances and remote life events:intact Language as evidenced by ability to repeat phrase and name object:intact Fund of knowledge as evidenced by vocabulary and current/historical events:intact Attention span/concentration as evidenced by:ability to sustain attention to examiner -intact Insight:fair Judgment:fair FORMULATION: Kimberly Kendall is [id number] old female with presenting symptoms ofdepression, anxiety, [...] Stop Seroquel. Remeron was stopped in the hospital. ASSESSMENT- DIAGNOSIS:Major depressive disorder recurrent episode moderate Generalized Anxiety Disorder PTSD Bereavement PLAN: - Can take Hydroxyzine 50 mg BID PRN for anxiety-- states that she has been using 3 times per day - Continue Trazodone 50 mg QHS PRN for insomnia - Continue Prozac 40 mg daily for depression and anxiety -ContinueBuspar 10 mg BID for anxiety. - Can take Ativan 0.5 mgTIDPRN for. Discussed trying to not utilize this over Hydroxyzine anduse this just as emergency rescue - discussed that I will be leaving [facility] and she will be transferred to a new psychiatrist. Will cc scheduling team - I have reviewed the patients controlled substance dispensing history in the Prescription Drug Monitoring Program in compliance with the [facility] regulations before prescribing a controlled substance. - Crisis planning-- Kimberly Kendall has been provided with Psychiatry emergency telephone numbers Discussed risks, expected benefits, and potential adverse [...] to clinic in the timeframe described above. Return 6 weeks Risk/Benefits of Medication Discussed/Verbalized Understanding yes Time Spent on Visit: 30 minutes - including preparing to see the patient, reviewing history, performing evaluation, counseling/educating patient, ordering medications/tests, documenting clinical information. Alisha Gandhi D.O. Psychiatry Attending 07/17/2021 documented in this encounter Plan of Treatment Upcoming Encounters Date Type Specialty Care Team Description 07/22/2021 Laboratory Laboratory Processing [facility] [place], [facility] Mobile Home Draw [address] [place] [address] 07/23/2021 [facility] [address] [place] [address] [phone] 09/24/2021 Office Visit Pulmonary Jesus Bonilla MD [address] [place] [facility] [place] [address] [phone] Health Maintenance Due Date Last Done Comments [...] (generalized anxiety disorder)- Primary Generalized anxiety disorder Major depressive disorder, recurrent episode, moderate (HCC) Major depressive disorder, recurrent episode, moderate documented in this encounter Advance Directives Documents on File Type Date Recorded Patient Chemist Enzymes Expl 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
--- OUTSIDE RECORDS SUMMARY | 2023-07-25 04:57 | External Medical Summary | Summary of Care ---
Author Name Unknown Organization [facility] Address [place] [address] Care Team Providers Care Billing Manager Name Role Phone Roger Alexandra MD Primary Care Provider [phone] [phone] Encounter Details Date Type Department Care Team Description 07/03/2021 Scan Encounter Unspecified Department <No scans attached> Allergies Active Allergy Reactions Severity Noted Date Comments Aspirin Unknown 12/12/2007 von Willebrand's disease Salicylates 03/01/2000 von Willebrand's disease documented as of this encounter (statuses as of 07/04/2021) Medications Medication Sig Dispensed Refills Start Date [...] Anxiety. 60 Tab 3 03/24/2021 Active Nystatin 141591 UNIT/GM External Powder (Nystop) 1 harriet, Powder, [...] 2 04/29/2021 Active Vitamin D3 1.25 MG (04518 UT) Oral CapsuleIndications: Vitamin D deficiency Take [...] as of this encounter (statuses as of 07/04/2021) Active Problems Problem Noted Date Chronic hypoxemic [...] as of this encounter (statuses as of 07/04/2021) Resolved Problems Problem Noted Date Resolved Date [...] as of this encounter (statuses as of 07/04/2021) Immunizations Name Administration Dates Next Due H1N1 [...] Encounters Date Type Specialty Care Team Description 07/04/2021 Office Visit Family Medicine Narcisa Fisher PA-C [address] [place] [address] [phone] 07/07/2021 [facility] [address] [place] [address] [phone] 07/08/2021 Laboratory Laboratory Processing [facility] [place] [facility] Home Draw [address] [place] [address] 07/17/2021 Telemedicine Psychiatry Alisha Gandhi DO [address] [place] [address] 09/24/2021 Office Visit Pulmonary [facility] [address] [facility] [address] Health Maintenance Due Date Last Done [...] Documents on File Type Date Recorded Patient Collet Making Machine Operator Expl 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
--- OUTSIDE RECORDS SUMMARY | 2023-07-25 04:57 | External Medical Summary | Summary of Care ---
Author Name Unknown Organization [facility] Address [place] [address] Care Team Providers Care Resist Coater Developer Name Role Phone Roger Alexandra MD Primary Care Provider [phone] [phone] Encounter Details Date Type Department Care Team Description 06/13/2021 Scan Encounter Unspecified Department <No scans attached> Allergies Active Allergy Reactions Severity Noted Date Comments Aspirin Unknown 12/12/2007 von Willebrand's disease Salicylates 03/01/2000 von Willebrand's disease documented as of this encounter (statuses as of 06/17/2021) Medications Medication Sig Dispensed Refills Start Date [...] Anxiety. 60 Tab 3 03/24/2021 Active Nystatin 813658 UNIT/GM External Powder (Nystop) 1 harriet, Powder, [...] 2 04/29/2021 Active Vitamin D3 1.25 MG (56605 UT) Oral CapsuleIndications: Vitamin D deficiency Take [...] Pain, Severe. 90 Tab 0 06/16/2021 Active documented as of this encounter (statuses as of 06/17/2021) Active Problems Problem Noted Date Chronic hypoxemic [...] as of this encounter (statuses as of 06/17/2021) Resolved Problems Problem Noted Date Resolved Date [...] as of this encounter (statuses as of 06/17/2021) Immunizations Name Administration Dates Next Due H1N1 [...] Encounters Date Type Specialty Care Team Description 06/18/2021 Telemedicine Psychiatry [facility], [address] [place] [address] 06/19/2021 Laboratory Laboratory Processing [facility] [place], [facility] Mobile Home Draw [address] [place] [address] [phone] 06/20/2021 [facility] [address] [facility] [place] [address] [phone] 09/24/2021 Office Visit Pulmonary Jesus Bonilla MD [address] [facility] [place] [address] Health Maintenance Due Date Last [...] Patients (6 to 64 Years) (2 of 2) 2025 03/20/2009 COLONOSCOPY-EVERY 5 YRS AGES 18-100 11/12/2025 11/12/2020, 05/22/2013, 08/21/2011, Additional history exists MENINGOCOCCAL (MENACTRA/MENVEO) Aged Out No longer eligible based on patient's age to complete this topic documented as of this encounter Implants Not on filedocumented as of this encounter Advance Directives Documents on File Type Date Recorded Patient Medical Record Consultant Expl 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
--- OUTSIDE RECORDS SUMMARY | 2023-07-25 04:57 | External Medical Summary ---
Author Name Unknown Address Unknown Organization K0G[facility] [address] [place] [address] Laboratory Report Ordering Provider Test Date Status SUMAN STANFORD 06/30/2021 10:04:00 Final Observation Date Value Abnormality Reference (Units ) Status PT 06/30/2021 10:04:00 14.1 11.5-14.6 (seconds) Final INR 06/30/2021 10:04:00 1.08 0.84-1.14 Final Performing Location [facility] [address] [place] [address]
--- OUTSIDE RECORDS SUMMARY | 2023-07-25 04:57 | External Medical Summary | Summary of Care ---
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 60 Tab 3 03/24/2021 Active Nystatin 896918 UNIT/GM External Powder (Nystop) 1 harriet, Powder, [...] 2 04/29/2021 Active Vitamin D3 1.25 MG (86906 UT) Oral CapsuleIndications: Vitamin D deficiency Take [...] as of this encounter (statuses as of 07/03/2021) Active Problems Problem Noted Date Chronic hypoxemic [...] as of this encounter (statuses as of 07/03/2021) Resolved Problems Problem Noted Date Resolved Date [...] as of this encounter (statuses as of 07/03/2021) Immunizations Name Administration Dates Next Due H1N1 [...] as of this encounter Progress Notes * Heather Lora RPh - 07/03/2021 3:13 PM EDT Images from the original note were not included. Medication Therapy Disease Management - Anticoagulation Patient: Kimberly Kendall : 1960 Contacts Type Contact Phone 07/03/2021 03:18 PM EDT Phone (Outgoing) EnochKimberly mcdonnell (Self) [phone] (M) Current Warfarin Dose As of 07/03/2021 Warfarin maintenance plan: 2.5 mg (2.5 mg x 1) every Mon, Fri; 5 mg (5 mg x 1) all other days Patient-Reported Symptoms: Patient Findings Comments: Pt seemed rushed on phone - may want to confirm dose at next check. INR Result As of 07/03/2021 INR goal: 2.0-3.0 INR used for dosin.13 (07/03/2021) Warfarin Plan As of 07/03/2021 Full warfarin instructions: 07/03: 15 mg; 07/04: 15 mg; 07/05: 12.5 mg; 07/06: 10 mg Next INR check: 07/07/2021 Additional Dosing Information: Description GM Repeat PT/INR in 4 day(s) Weekly dose: re-establishing Heather Lora RPh Clinical Pharmacist 07/03/2021, 3:18 PM documented in this encounter Plan of Treatment Upcoming Encounters Date Type Specialty Care Team Description 07/07/2021 Laboratory Laboratory Processing [facility] [place], [facility] Mobile Home Draw [address] [place] [address] [phone] 07/07/2021 [facility] [address] [facility] [place] [address] [phone] 07/17/2021 Telemedicine Psychiatry Alisha Gandhi DO [address] [place], [place] [id number] 09/24/2021 Office Visit Pulmonary Jesus Bonilla MD [address] [place] [id number] Health Maintenance Due Date Last Done Comments [...] as of this encounter Visit Diagnoses Diagnosis 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
--- OUTSIDE RECORDS SUMMARY | 2023-07-25 04:57 | External Medical Summary ---
Author Name Unknown Address Unknown Organization K01:[facility] - [address] [place] [address] Laboratory Report Ordering Provider Test Date Status MAXIME LIU 06/30/2021 10:04:00 Final Observation Date Value Abnormality Reference (Units ) Status MedigusANTONY SPECIMEN-LAV 06/30/2021 10:04:00 Freezing of extracted DNA, whole blood and/or serum. Final Performing Location [facility] - [address] [facility] [address]
--- OUTSIDE RECORDS SUMMARY | 2023-07-25 04:57 | External Medical Summary | Summary of Care ---
Author Name Unknown Organization [facility] Address [place] [address] Care Team Providers Care Center Human Resources Manager Name Role Phone Roger Alexandra MD Primary Care Provider [phone] [phone] Reason for Visit * Reason Comments Dosage Adjustment Via Phone (anticoag Cl inic) Encounter Details Date Type Department Care Team Description 06/30/2021 Anticoagulation Pharmacy Call Center [address] [facility] [place] [address] Telepharmacy, [facility] [address] [facility] [place] [address] [phone] long term acute care registered nurse current use of anticoagulant therapy* Allergies Active Allergy Reactions Severity Noted Date Comments Aspirin Unknown 12/12/2007 von Willebrand's disease Salicylates 03/01/2000 von Willebrand's disease documented as of this encounter (statuses as of 06/30/2021) Medications Medication Sig Dispensed Refills Start Date [...] Anxiety. 60 Tab 3 03/24/2021 Active Nystatin 384240 UNIT/GM External Powder (Nystop) 1 harriet, Powder, [...] 2 04/29/2021 Active Vitamin D3 1.25 MG (55056 UT) Oral CapsuleIndications: Vitamin D deficiency Take [...] as of this encounter (statuses as of 06/30/2021) Active Problems Problem Noted Date Chronic hypoxemic [...] as of this encounter (statuses as of 06/30/2021) Resolved Problems Problem Noted Date Resolved Date [...] Atrial septal aneurysm 02/04/2006 9 long term acute care registered nurse current use of anticoagulant therapy 0 06/01/2005 [...] as of this encounter (statuses as of 06/30/2021) Immunizations Name Administration Dates Next Due H1N1 [...] as of this encounter Progress Notes * Raissa Miller RPh - 06/30/2021 1:24 PM EDT Images from the original note were not included. Medication Therapy Disease Management - Anticoagulation Patient: Kimberly Kendall : 1960 Contacts Type Contact Phone 06/30/2021 01:25 PM EDT Phone (Outgoing) Kimberly Kendall (Self) [phone] (M) Left Message Current Warfarin Dose As of 06/30/2021 Warfarin maintenance plan: 2.5 mg (2.5 mg x 1) every Mon, Fri; 5 mg (5 mg x 1) all other days INR Result As of 06/30/2021 INR goal: 2.0-3.0 INR used for dosin.08 (06/30/2021) Warfarin Plan As of 06/30/2021 Full warfarin instructions: 06/30: 10 mg; 07/01: 10 mg; 07/02: 5 mg; Next INR check: 07/03/2021 Additional Dosing Information: Description [facility] Repeat PT/INR in 3 day(s) Weekly dose: n/a Raissa Miller RPh Clinical Pharmacist 06/30/2021, 1:25 PM documented in this encounter Plan of Treatment Upcoming Encounters Date Type Specialty Care Team Description 07/03/2021 Laboratory Laboratory Processing [facility] [place], [facility] Mobile Home Draw [address] [place] [address] 07/03/2021 [facility] [address] [facility] [place] [address] [phone] 07/17/2021 Telemedicine Psychiatry Alisha Gandhi, DO [address] [facility] [place] [address] [phone] 09/24/2021 Office Visit Pulmonary Jesus Bonilla MD [address] [facility] [place] [address] Health Maintenance Due [...] as of this encounter Visit Diagnoses Diagnosis [facility]DC current use of anticoagulant therapy- Primary documented in this encounter Advance Directives Documents on File Type Date Recorded Patient Leather Production Artisan Expl 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
--- OUTSIDE RECORDS SUMMARY | 2023-07-25 04:57 | External Medical Summary | Summary of Care ---
Author Name Unknown Organization [facility] Address [place] [address] Care Team Providers Care Acoustic Warfare Analyst Name Role Phone Roger Alexandra MD Primary Care Provider [phone] [phone] Reason for Visit * Reason Comments Dosage Adjustment Via Phone (anticoag Cl inic) Encounter Details Date Type Department Care Team Description 07/07/2021 Anticoagulation Pharmacy Call Center [address] [facility] [place] [address] Telepharmacy, [facility] [address] [facility] [place] [address] [phone] terminal makeup operator current use of anticoagulant therapy* Allergies Active Allergy Reactions Severity Noted Date Comments Aspirin Unknown 12/12/2007 von Willebrand's disease Salicylates 03/01/2000 von Willebrand's disease documented as of this encounter (statuses as of 07/07/2021) Medications Medication Sig Dispensed Refills Start Date [...] Anxiety. 60 Tab 3 03/24/2021 Active Nystatin 097309 UNIT/GM External Powder (Nystop) 1 harriet, Powder, [...] 2 04/29/2021 Active Vitamin D3 1.25 MG (36257 UT) Oral CapsuleIndications: Vitamin D deficiency Take [...] as of this encounter (statuses as of 07/07/2021) Active Problems Problem Noted Date Chronic hypoxemic [...] as of this encounter (statuses as of 07/07/2021) Resolved Problems Problem Noted Date Resolved Date [...] as of this encounter (statuses as of 07/07/2021) Immunizations Name Administration Dates Next Due H1N1 [...] Progress Notes * Kim Mercado RPh - 07/07/2021 3:08 PM EDT Medication Therapy Disease Management - Anticoagulation Patient: Kimberly Kendall : 1960 Contacts Type Contact Phone 07/07/2021 03:08 PM EDT Phone (Outgoing) [place]oKimberly mcdonnell (Self) [phone] (M) Spoke to Patient Current Warfarin Dose As of 07/07/2021 Warfarin maintenance plan: No maintenance plan Patient-Reported Symptoms: Patient Findings Positives: Signs/symptoms of bleeding Comments: Rectal bleeding. Seen in [facility] ED, INR was 1.1. per ED report pt has history of hemmorhoids, bleeding has resolved. INR Result As of 07/07/2021 INR goal: 2.0-3.0 INR used for dosing: No new INR was available at the time of this encounter. Warfarin Plan As of 07/07/2021 Full warfarin instructions: 07/07: 10 mg Next INR check: 07/08/2021 Additional Dosing Information: Description GML Repeat PT/INR in 1 day(s) Weekly dose: re-establishing. GML was due to draw today but has pt scheduled for tomorrow. Kim Mercado RPh Clinical Pharmacist 07/07/2021, 3:08 PM * Christine Camejo OSA - 07/07/2021 12:45 PM EDT Patient is not scheduled with GML until 8/24. Please advise if dosing is needed and will follow up for results tomorrow. documented in this encounter Plan of Treatment Upcoming Encounters Date Type Specialty Care Team Description 07/08/2021 Laboratory [facility] Mobile Home Draw [address] [place] [address] [phone] 07/08/20[facility] [address] [place] [address] [phone] 07/17/2021 Telemedicine Psychiatry Alisha Gandhi DO [address] [place] [address] 09/24/2021 Office Visit Pulmonary [facility] [address] [facility] [address] [facility] Maintenance Due Date [...] Documents on File Type Date Recorded Patient Fourchette Sewer Expl 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
--- OUTSIDE RECORDS SUMMARY | 2023-07-25 04:57 | External Medical Summary | Summary of Care ---
Author Name Unknown Organization [facility] Address [place] [address] Care Team Providers Care Telephonic Rn Name Role Phone Roger Alexandra MD Primary Care Provider [phone] Reason for Visit * Reason Comments Dosage Adjustment Via Phone (anticoag Cl inic) Encounter Details Date Type Department Care Team Description 06/19/2021 Anticoagulation Pharmacy Call Center [address] [facility] [place] [address] Telepharmacy, [facility] 58 60 [facility] [place] [address] [phone] shelter current use of anticoagulant therapy* Allergies Active Allergy Reactions Severity Noted Date Comments Aspirin Unknown 12/12/2007 von Willebrand's disease Salicylates 03/01/2000 von Willebrand's disease documented as of this encounter (statuses as of 06/19/2021) Medications Medication Sig Dispensed Refills Start Date [...] Anxiety. 60 Tab 3 03/24/2021 Active Nystatin 178694 UNIT/GM External Powder (Nystop) 1 harriet, Powder, [...] 2 04/29/2021 Active Vitamin D3 1.25 MG (50681 UT) Oral CapsuleIndications: Vitamin D deficiency Take [...] as of this encounter (statuses as of 06/19/2021) Active Problems Problem Noted Date Chronic hypoxemic [...] as of this encounter (statuses as of 06/19/2021) Resolved Problems Problem Noted Date Resolved Date [...] as of this encounter (statuses as of 06/19/2021) Immunizations Name Administration Dates Next Due H1N1 [...] Progress Notes * Luis Nava CPhT - 06/19/2021 3:34 PM EDT Contacts Type Contact Phone 06/19/2021 03:32 PM EDT Phone (Outgoing) Kimberly Kendall (Self) [phone] (M) Patient Findings Negatives: Signs/symptoms of thrombosis, [...] noted by Pharmacist: Yes Luis Nava CPhT 06/19/2021, 3:34 PM * Raissa Miller RPh - 06/19/2021 3:28 PM EDT Images from the original note were not included. Coumadin Clinic (region specific) Current Warfarin Dose As of 06/19/2021 Warfarin maintenance plan: 2.5 mg (2.5 mg x 1) every Mon, Wed, Fri; 5 mg (5 mg x 1) all other days INR Result As of 06/19/2021 INR goal: 2.0-3.0 INR used for dosin.32 (06/19/2021) Warfarin Plan As of 06/19/2021 Full warfarin instructions: 06/19: 10 mg; Otherwise 2.5 mg every Mon, Fri; 5 mg all other days Next INR check: 06/30/2021 Repeat PT/INR in 1.5 week(s) Weekly dose: increased Additional Dosing Information: Description GML Tech to contact patient with dose instructions as noted. Raissa Miller RPh 06/19/2021, 3:28 PM documented in this encounter Plan of Treatment Upcoming Encounters Date Type Specialty Care Team Description 07/17/2021 Telemedicine Psychiatry Alisha Gandhi, DO [address] [facility] [place] [address] 09/24/2021 Office Visit Pulmonary Jesus Bonilla MD [address] [place] [id number] Health Maintenance Due Date Last Done Comments [...] as of this encounter Visit Diagnoses Diagnosis shelter current use of anticoagulant therapy- Primary documented in this encounter Advance Directives Documents on File Type Date Recorded Patient General Scrap Worker Expl 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
--- OUTSIDE RECORDS SUMMARY | 2023-07-25 04:57 | External Medical Summary | Summary of Care ---
Author Name Unknown Organization [place] [address] Care Team Providers Care Casting House Worker Name Role Phone Roger Alexandra MD Primary Care Provider [phone] Encounter Details Date Type Department Care Team Description 07/08/2021 Orders Only Outcomes Research Department [address] [place] [address] Cole Garrett CHRA MyCode Research Other*[id number] Allergies Active Allergy Reactions Severity Noted Date [...] Anxiety. 60 Tab 3 03/24/2021 Active Nystatin 916387 UNIT/GM External Powder (Nystop) 1 harriet, Powder, [...] 2 04/29/2021 Active Vitamin D3 1.25 MG (31080 UT) Oral CapsuleIndications: Vitamin D deficiency Take [...] Date Type Specialty Care Team Description 07/08[facility]2021 [facility] [address] [facility] [address] [phone] 07/17/2021 Telemedicine Psychiatry Alisha Gandhi, DO [address] [facility] [place] [address] 09/24/2021 Office Visit Pulmonary Jesus Bonilla MD [address] [place] [address] Scheduled Orders Name Type Priority Associated Diagnoses Orde r Schedule MYCODE SUBSEQUENT ADULT Lab Routine MyCode Research Other*[id number] Every 6 Months for 2 Occurrences starting 07/08/2021 until 07/28/2022 Health Maintenance Due Date Last Done Comments [...] this encounter Visit Diagnoses Diagnosis MyCode Research Other*[id number] documented in this encounter Advance Directives Documents on File Type Date Recorded Patient Director Funds Development Expl 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
--- OUTSIDE RECORDS SUMMARY | 2023-07-25 04:57 | External Medical Summary | Summary of Care ---
Author Name Unknown Organization [place] [address] Care Team Providers Care Lending Manager Name Role Phone Roger Alexandra MD Primary Care Provider [phone] Reason for Visit * Reason Onset Date Comments Medication Refill 06/13/2021 Status Check 06/13/2021 Status Check 06/16/2021 Encounter Details Date Type Department Care Team Description 06/13/2021 Refill Family Practice [facility] [address] [place] [address] Roger Alexandra MD [address] [facility] [place] [address] Chronic bilateral low back pain without sciatica Allergies Active Allergy Reactions Severity Noted Date Comments Aspirin Unknown 12/12/2007 von Willebrand's disease Salicylates 03/01/2000 von Willebrand's disease documented as of this encounter (statuses as of 06/16/2021) Medications Medication Sig Dispensed Refills Start Date [...] Anxiety. 60 Tab 3 03/24/2021 Active Nystatin 850915 UNIT/GM External Powder (Nystop) 1 hariret, Powder, Topical twice daily, 1 EA, 0 [...] 2 04/29/2021 Active Vitamin D3 1.25 MG (76817 UT) Oral CapsuleIndication s:Vitamin D deficiency Take [...] Pain, Severe. 90 Tab 0 06/16/2021 Active traMADol HCl 100 MG Oral TabletIndications :Chronic bilateral low back pain without sciatica Take 100 mg by mouth every 8 hours as needed for Pain, Moderate or Pain, Severe. 90 Tab 0 04/30/2021 1 Discontinue d(Refill) documented as of this encounter (statuses as of 06/16/2021) Active Problems Problem Noted Date Chronic hypoxemic [...] as of this encounter (statuses as of 06/16/2021) Resolved Problems Problem Noted Date Resolved Date [...] as of this encounter (statuses as of 06/16/2021) Immunizations Name Administration Dates Next Due H1N1 [...] encounter Miscellaneous Notes * Telephone Encounter - Dorothy Contreras PHARM Tech - 06/16/2021 12:56 PM EDT Pt calling to check on status of traMADol HCl 100 MG Oral Tablet. Pt out of Rx. Caller can be reached at Patient Phone Numbers [employer] [phone] . Thank You, Dorothy Contreras Rn Hematology Refill Call Center 06/16/2021, 12:56 PM * Telephone Encounter - Angela May MED ASSIST - 06/16/2021 11:10 AM EDT Pending Prescriptions: Disp Refills traMADol HCl 100 MG Oral Tablet 90 Tab 0 Sig: Take 100 mg by mouth every 8 hours as needed for Pain, Moderate or Pain, Severe. * Telephone Encounter - Mary Campbell PHARM Tech - 06/16/2021 11:08 AM EDT Pt is out of medication please send to pharmacy today Thank you, Mary Campbell Rn Hematology Pharmacy Refill Call Center 06/16/2021,11:08 AM * Telephone Encounter - Emily Harrington PHARM Tech - 06/16/2021 8:42 AM EDT Pt calling to check on status of Tramadol 50mg . Caller can be reached at [phone] . Thank you, Emily Harrington Rn Hematology [facility] 06/16/2021,8:42 AM * Telephone Encounter - Ewa [facility] - 06/16/2021 7:27 AM EDT Pending Prescriptions: Disp Refills traMADol HCl 100 MG Oral Tablet 90 Tab 0 Sig: Take 100 mg by mouth every 8 hours as needed for Pain, Moderate or Pain, Severe. * Telephone Encounter - Ewa [facility] - 06/16/2021 7:26 AM EDT I have reviewed the patients controlled substance dispensing history in the Prescription Drug Monitoring Program in compliance with the [place] regulations before prescribing a controlled substance. PDMP checked on 06/16/2021. Pending Prescriptions: Disp Refills traMADol HCl 100 MG Oral Tablet 90 Tab 0 Sig: Take 100 mg by mouth every 8 hours as needed for Pain, Moderate or Pain, Severe. Last Office/Telemedicine Visit: 06/12/2021 Next Office Visit: No Future Appointments Date medication was last filled: 06/06/21 Date medication is due for refill: 06/13/21 Pharmacy: [id number] Is this request for a controlled [...] approve if appropriate. Thank You, Ewa [facility] Pharmacist Telepharmacy 06/16/2021, 7:26 AM * Telephone Encounter - Dorothy Contreras PHARM Tech - 06/13/2021 3:37 PM EDT Pt calling to check on status of traMADol HCl 100 MG Oral Tablet. Pt advised of 48 business hours for processing. Caller can be reached at Patient Phone Numbers [employer] [phone] . Thank You, Dorothy Contreras Rn Hematology Refill Call Center 06/13/2021, 3:37 PM * Telephone Encounter - Blanche Lancaster PHARM Tech - 06/13/2021 1:11 PM EDT Pending Prescriptions: Disp Refills traMADol [...] appointment Last date the medication was ordered: 04/30/2021 Pharmacy: [id number] [place] [id number] [facility] Is this request for a controlled substance?Yes [...] Specialty Care Team Description 06/18/2021 Telemedicine Psychiatry Alisha Gandhi DO [address] [place] [address] [phone] 06/19/2021 Laboratory Laboratory Processing [facility], [facility] Mobile Home Draw [address] [place] [address] [phone] 06/20/20[facility] [address] [facility] [address] [phone] 09/24/2021 Office Visit Pulmonary Jesus Bonilla MD [address] [facility] [place] [address] Health Maintenance Due Date Last Done Comments COVID-19 Vaccine (1) 1972 Zoster Vaccines (1 of 2) 2010 *DEPRESSION SCREENING,ANNUAL FOR PTS 12 AND OVER 04/11/2015 BREAST CANCER SCREENING DISCUSSION YEARLY AGES 40-75 10/28/2016 10/28/2015, 04/27/2014, 05/12/2013, Additional history exists DTaP,Tdap,and Td Vaccines (2 - Td) 06/27/2018 06/27/2008 *DISCUSS TOBACCO CESSATION (REFER TO SMARTSET #3291) 01/04/2020 LIPID SCREEN EVERY 5 YRS-WOMEN AGE 45-75 [...] on File Type Date Recorded Patient Rn Women Services Expl 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
--- OUTSIDE RECORDS SUMMARY | 2023-07-25 04:57 | External Medical Summary | Summary of Care ---
Author Name Unknown Organization [place] [address] Care Team Providers Care Business Banking Relationship Manager Name Role Phone Roger Alexandra MD Primary Care Provider [phone] [phone] Reason for Visit * Reason Onset Date Comments Home Health 06/12/2021 Encounter Details Date Type Department Care Team Description 06/12/2021 Telephone Family Practice [facility] [address] [place] [id number] Roger Alexandra MD [address] [place] [id number] Home Health Allergies Active Allergy Reactions Severity Noted Date Comments Aspirin Unknown 12/12/2007 von Willebrand's disease Salicylates 03/01/2000 von Willebrand's disease documented as of this encounter (statuses as of 06/24/2021) Medications Medication Sig Dispensed Refills Start Date [...] Anxiety. 60 Tab 3 03/24/2021 Active Nystatin 441377 UNIT/GM External Powder (Nystop) 1 harriet, Powder, [...] 2 04/29/2021 Active Vitamin D3 1.25 MG (50375 UT) Oral CapsuleIndications: Vitamin D deficiency Take [...] mouth daily. 30 Each 11 06/12/2021 Active documented as of this encounter (statuses as of 06/24/2021) Active Problems Problem Noted Date Chronic hypoxemic [...] as of this encounter (statuses as of 06/24/2021) Resolved Problems Problem Noted Date Resolved Date [...] as of this encounter (statuses as of 06/24/2021) Immunizations Name Administration Dates Next Due H1N1 [...] encounter Miscellaneous Notes * Telephone Encounter - Shameka Wasserman RN - 06/24/2021 8:20 AM EDT Called [facility], and they do not need any additional orders * Telephone Encounter - Angela May MED ASSIST - 06/13/2021 1:39 PM EDT Left message for Alisha to return call. * Telephone Encounter - Roger Alexandra MD - 06/12/2021 9:12 PM EDT Agree. Do I have to put in another referral for next week?? * Telephone Encounter - Kim De Guzman LPN - 06/12/2021 5:42 PM EDT Do you agree? * Telephone Encounter - Temi West LPN - 06/12/2021 2:48 PM EDT Alisha calling from [facility] Calling to get OT eval orders for next week. Pt is not able to be seen this week due to ongoing appts. Please call Alisha at [phone] if agreeable. Please advise. documented in this encounter Plan of Treatment Upcoming Encounters Date Type Specialty Care Team Description 06/30/2021 Laboratory Laboratory Processing [facility], [facility] Mobile Home Draw [address] [place] [address] [phone] 07/01/2021 [facility] [address] [facility] [place] [address] [phone] 07/17/2021 Telemedicine Psychiatry Alisha Gandhi, DO [address] [place] [address] [phone] 09/24/2021 Office Visit Pulmonary Jesus Bonilla MD [address] [place] [address] Health Maintenance Due Date [...] Documents on File Type Date Recorded Patient Screen And Cyclone Repairer Expl 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
--- OUTSIDE RECORDS SUMMARY | 2023-07-25 04:57 | External Medical Summary ---
Author Name Unknown Address Unknown Organization [facility] [address] [place] [address] Laboratory Report Ordering Provider Test Date Status SUMAN STANFORD 06/19/2021 10:54:00 Final Observation Date Value Abnormality Reference (Units ) Status PT 06/19/2021 10:54:00 16.6 Above high normal 11 .5-14.6 (seconds) Final INR 06/19/2021 10:54:00 1.32 Above high normal 0. 84-1.14 Final Performing Location [facility] [address] [place] [address]
--- OUTSIDE RECORDS SUMMARY | 2023-07-25 04:57 | External Medical Summary | Summary of Care ---
Author Name Unknown Organization [place] [address] Care Team Providers Care Decision Support Analyst Name Role Phone Roger Alexandra MD Primary Care Provider [phone] Reason for Visit * Reason Comments Anxiety Depression Encounter Details Date Type Department Care Team Description 06/18/2021 Telemedicine Psychiatry, [facility] [address] [place], [place] [id number] Alisha Gandhi, DO [address] [facility] [place] [address] Encounter for long-term (current) use of medications*; SIMA (generalized anxiety disorder); PTSD (post-traumatic stress disorder); Major depressive disorder, recurrent episode, moderate (HCC) Allergies Active Allergy Reactions Severity Noted Date Comments Aspirin Unknown 12/12/2007 von Willebrand's disease Salicylates 03/01/2000 von Willebrand's disease documented as of this encounter (statuses as of 06/18/2021) Medications Medication Sig Dispensed Refills Start Date [...] Anxiety. 60 Tab 3 03/24/2021 Active Nystatin 198405 UNIT/GM External Powder (Nystop) 1 harriet, Powder, [...] 2 04/29/2021 Active Vitamin D3 1.25 MG (19311 UT) Oral CapsuleIndications: Vitamin D deficiency Take [...] as of this encounter (statuses as of 06/18/2021) Active Problems Problem Noted Date Chronic hypoxemic [...] as of this encounter (statuses as of 06/18/2021) Resolved Problems Problem Noted Date Resolved Date [...] as of this encounter (statuses as of 06/18/2021) Immunizations Name Administration Dates Next Due H1N1 [...] Progress Notes * Alisha Gandhi, DO - 06/18/2021 11:53 AM EDT After connecting through [email or web address], patient was verified with two unique identifiers. Patient (or authorized legal medical claims representative) was then informed that this was a Telemedicine visit and being conducted confidentially over secure lines. Methods to assure confidentiality were taken. Patient acknowledged consent and understanding of privacy and security of the Telemedicine visit. The patient agreed to participate. PSYCHOTHERAPY & MEDICATION MANAGEMENT RETURN VISIT NOTE Psychiatry, [facility] [address] [place] [address] 06/18/2021 Kimberly Kendall CHIEF COMPLAINT: depression INTERVAL HISTORY: Kimberly and I discussed her most recent hospitalization. She doesn't feel that [facility] should have released her. She is still feeling weak. She got home 2 weekends ago. It hurts for her to walk (hip). She denies chest pain. She has some heaviness with her COPD. She is on Oxygen 07/06. She is taking 4L of oxygen. Sometimes its hard to breathe even on the 4L. She is supposed to have a home health aid checking in with her. Wednesday she went without medication because they werenot there. The nurse, Se, came yesterday. She has not taken a shower 2 weekends ago. Her granddaughter helped her then. Physical therapy has been coming in. She has been doing her exercises. Sometimes she feels like she doesn't belong here. She denies suicidal ideation/plan/intent. She states her children are her protective factor. No HI/AVH. No paranoid ideations or delusions. Her sleepis "off/on" OBJECTIVE DATA: COLUMBIA-SUICIDE SEVERITY RATING SCALE Have you ever wished that you were , or not alive anymore? sometimes Have you actually had thoughts about killing [...] reasons for living SIGECAPS: - Sleep: Difficult sometimes. Feels her mind races - Interest: normal - Guilt: No - Energy: decreased - Concentration: ok - Appetite: normal - Psychomotor Activity: normal - Psychosis: No Anxiety: - Excessive Worry- Yes ROS EXAM: No observed or reported side effects to current medications SUBSTANCE ABUSE:Unremarkable RELEVANT PAST PSYCHIATRIC, MEDICAL, FAMILY OR SOCIAL HX: No new changes CURRENT MEDS: Current Outpatient Medications Medication Sig Dispense Refill traMADol HCl 100 MG Oral Tablet Take 100 mg by mouth every 8 hours as needed for Pain, Moderate or Pain, Severe. 90 Tab 0 Anoro Ellipta 62.5-25 MCG/INH Inhalation Aerosol Powder Breath Activated (umeclidinium-vilanterol) Inhale 1 Puff by mouth daily. 30 Each 11 Arnuity Ellipta 100 MCG/ACT Inhalation Aerosol Powder Breath Activated (fluticasone Furoate) DAILY LORazepam 0.5 MG Oral Tablet (Ativan) Take 1 Tab by mouth 3 times a day as needed for Anxiety. 90 Tab 0 Isosorbide Mononitrate ER 30 MG Oral Tablet Extended Release 24 Hour (Imdur) take 1 tablet by mouthdaily 30 Tab 5 Vitamin D (Cholecalciferol) 25 MCG (1000 UT) Oral Capsule Take 1 Cap by mouth daily. 30 Cap 5 Vitamin D3 1.25 MG (04287 UT) Oral Capsule Take 1 Cap by mouth once a week. 4 Cap 3 traZODone HCl 50 MG Oral Tablet (Desyrel) Take 1 Tab by mouth at bedtime. 30 Tab 2 guaiFENesin-Codeine 100-10 MG/5ML Oral Syrup (Robitussin AC) Take 5 mL by mouth every 4 hours as needed for Cough. 120 mL 0 Nystatin 847183 UNIT/GM External Powder (Nystop) 1 harriet, Powder, [...] -intact Insight:fair Judgment:fair FORMULATION: Kimberly Kendall is u41pvvd old female with presenting symptoms ofdepression, anxiety, [...] mg QHS PRN for insomnia - Continue Prozac-- increase to 40 mg daily for depression and anxiety. Started when she was in thehospital. - Continue Buspar 10 mg BID for anxiety. - Can take Ativan 0.5 mgTIDPRN for. Discussed trying to not utilize this over Hydroxyzine anduse this just as emergency rescue - I have reviewed the patients controlled substance dispensing history in the Prescription Drug Monitoring Program in compliance with the [facility] regulations before prescribing a controlled substance. - [...] clinic in the timeframe described above. Return 4 weeks Risk/Benefits of Medication Discussed/Verbalized Understanding yes Time Spent on Visit: 30 minutes - including preparing to see the patient, reviewing history, performing evaluation, counseling/educating patient, ordering medications/tests, documenting clinical information. Please note >17 minutes of counseling time over and above medication management was spent with patient discussing self care and providing supportive therapy . Alisha Gandhi D.O. Psychiatry Attending 06/18/2021 documented in this encounter Plan of Treatment Upcoming Encounters Date Type Specialty Care Team Description 06/19/2021 Laboratory Laboratory Processing [facility], [facility] Mobile Home Draw [address] [place] [address] 06/20/2021 Anticoagulation Pharmacy [place] [address] [address] [place] [address] [phone] 07/17/2021 Telemedicine Psychiatry Alisha Gandhi DO [address] [place] [address] [phone] 09/24/2021 Office Visit Pulmonary [facility] Bonilla [facility] [address] [facility] [address] Scheduled Orders Name Type Priority Associated Diagnoses Orde r Schedule EKG EKG Routine Encounter for long-term (current) use of medications Expected: 06/18/2021 (Approximate), Expires: 12/19/2021 Health Maintenance Due Date Last Done [...] Diagnosis Encounter for long-term (current) use of medications- Primary Encounter for long-term (current) use of other medications SIMA (generalized anxiety disorder) Generalized anxiety disorder PTSD (post-traumatic stress disorder) Posttraumatic stress disorder Major depressive disorder, recurrent episode, moderate (HCC) Major depressive disorder, recurrent episode, moderate documented in this encounter Advance Directives Documents on File Type Date Recorded 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
--- OUTSIDE RECORDS SUMMARY | 2023-07-25 04:57 | External Medical Summary ---
Author Name Unknown Address Unknown Organization K0G:[facility] [address] [place] [address] Laboratory Report Ordering Provider Test Date Status SUMAN STANFORD 07/03/2021 11:08:00 Final Observation Date Value Abnormality Reference (Units ) Status PT 07/03/2021 11:08:00 14.7 Above high normal 11 .5-14.6 (seconds) Final INR 07/03/2021 11:08:00 1.13 0.84-1.14 Final Performing Location [facility] [address] [place] [address]
--- OUTSIDE RECORDS SUMMARY | 2023-07-25 04:57 | External Medical Summary ---
Author Name Unknown Address Unknown Organization K01:[facility] - [address] [place] [address] Laboratory Report Ordering Provider Test Date Status MAXIME LIU 06/30/2021 10:04:00 Final Observation Date Value Abnormality Reference (Units ) Status MYCODE SPECIMEN-SST 06/30/2021 10:04:00 Freezing of extracted DNA, whole blood and/or serum. Final Performing Location [facility] [address] [facility] [address]
--- OUTSIDE RECORDS SUMMARY | 2023-07-25 04:57 | External Medical Summary ---
Author Name Unknown Address Unknown Organization K01:[facility] [place] [address] [place] [address] Laboratory Report Ordering Provider Test Date Status MAXIME LIU 06/30/2021 10:04:00 Final Observation Date Value Abnormality Reference (Units ) Status MYCODE SPECIMEN-SST 06/30/2021 10:04:00 Freezing of extracted DNA, whole blood and/or serum. Final Performing Location [facility] - [address] [facility] [address]
--- OUTSIDE RECORDS SUMMARY | 2023-07-25 04:58 | External Medical Summary | Summary of Care ---
Author Name Unknown Organization [facility] Address [place] [address] Care Team Providers Care Induction Furnace Operator Name Role Phone Roger Alexandra MD Primary Care Provider [phone] Encounter Details Date Type Department Care Team Description 06/10/2021 Telephone Pharmacy Call Center [address] [place] [address] [facility] [address] [facility] [place] [address] [phone] Allergies Active Allergy Reactions Severity Noted Date Comments Aspirin Unknown 12/12/2007 von Willebrand's disease Salicylates 03/01/2000 von Willebrand's disease documented as of this encounter (statuses as of 06/10/2021) Medications Medication Sig Dispensed Refills Start Date End Date Status OXYGEN 4 L during the day as needed and at bedtime 0 02/14/2015 Active albuterol-ipratropi um (DUONEB) 2.5-0.5 MG/3ML nebulizer solution Inhale 3 mL by mouth every 4 hours as needed for Shortness of Breath or Wheezing. 0 09/27/2015 Active Acetaminophen (TYLENOL) 325 MG CAPS Take by mouth. 0 Active Cholestyramine Light (QUESTRAN LIGHT) 4 GM/DOSE POWDIndications:Col itis Take 1 Scoopful Dosing Unit by mouth 2 times a day. in 6oz of liquid . 210 g 3 03/05/2020 Active fluticasone (FLOVENT HFA) 110 MCG/ACT inhalerIndications: Bronchitis, complicated Inhale 2 Puffs by mouth 2 times a day. 36 g 3 03/26/2020 Active Albuterol Sulfate (PROAIR HFA) 108 (90 [...] for Wheezing. 20 mL 1 08/23/2020 Active Mirtazapine 45 MG Oral Tablet (Remeron) Take 1 Tab by mouth at bedtime. 30 Tab 2 01/29/2021 Active Warfarin Sodium 10 MG Oral Tablet [...] Anxiety. 60 Tab 3 03/24/2021 Active Nystatin 061526 UNIT/GM External Powder (Nystop) 1 harriet, Powder, Topical twice daily, 1 EA, 0 Refill(s), Indication: Candidiasis of Skin, Route to Pharmacy Electronically, [facility] - [address], [address], 10/02/20 10:43:00 EST, Height/Length Dosing, cm, 116.3, 10/02/20 10:43:00 EST, Weight Dosing, kg 15 g 1 03/27/2021 Active QUEtiapine Fumarate 25 MG Oral Tablet (SEROquel) Take 1 Tab by mouth 2 times a day as needed (Insomnia, high anxiety, paranoid thoughts). 60 Tab 2 04/21/2021 Active guaiFENesin-Codeine 100-10 MG/5ML Oral Syrup (Robitussin AC) Take 5 mL by mouth every 4 hours as needed for Cough. 120 mL 0 04/23/2021 Active traMADol HCl 100 MG Oral TabletIndications:C hronic bilateral low back pain without sciatica Take 100 mg by mouth every 8 hours as needed for Pain, Moderate or Pain, Severe. 90 Tab 0 04/30/2021 Active traZODone HCl 50 MG Oral Tablet (Desyrel) Take 1 Tab by mouth at bedtime. 30 Tab 2 04/29/2021 Active LORazepam 0.5 MG Oral Tablet (Ativan) Take 1 Tab by mouth 3 times a day as needed for Anxiety. 90 Tab 0 04/29/2021 Active Vitamin D3 1.25 MG (09583 UT) Oral CapsuleIndications: Vitamin D deficiency Take 1 Cap by mouth once a week. 4 Cap 3 05/02/2021 Active Vitamin D (Cholecalciferol) 25 MCG (1000 UT) Oral Capsule Take 1 Cap by mouth daily. 30 Cap 5 05/05/2021 Active Isosorbide Mononitrate ER 30 MG Oral Tablet Extended Release 24 Hour (Imdur) take 1 tablet by mouth daily 30 Tab 5 05/20/2021 Active documented as of this encounter (statuses as of 06/10/2021) Active Problems Problem Noted Date COPD, group B, by GOLD 2017 classificati [...] as of this encounter (statuses as of 06/10/2021) Resolved Problems Problem Noted Date Resolved Date [...] as of this encounter (statuses as of 06/10/2021) Immunizations Name Administration Dates Next Due H1N1 2009 Influenza, IM 12/19/2009 Pneumococcal Polysaccharide PPV23 (Pneumovax) 03/20/2009 Seasonal Influenza, Quadriva lent, No Preserve, IM 08/21/2015 Seasonal Influenza, Split, I IV3, With Preserve, Inj 08/01/2014,08/09/2013,08/03/2012,08/24,08/06/2010,12/19/2009,09/20/2007 ,09/04/2003 TDAP (age 11 and older)(Adacel) 06/27/2008 documented as of this encounter Social History Tobacco Use Types Packs/Day Years Used Date Current Every Day Smoker Cigarettes 0.25 32 Quit: 01/17/2015 Smokeless Tobacco: Never Used Comments:will only try [...] Telephone Encounter - Kim Mercado RPh - 06/10/2021 1:33 PM EDT PT/INR order signed. Kim Mercado Rph, Pharm.D. Clinical Pharmacist Telepharmacy 06/10/2021,1:34 PM documented in this encounter Plan of Treatment Upcoming Encounters Date Type Specialty Care Team Description 06/12/2021 Office Visit Family Medicine [facility] [address] [facility] [address] [phone] 06/18/2021 Telemedicine Psychiatry Alisha Gandhi DO [address] [place] [address] [phone] 06/19/[address] [facility], [facility] Mobile Home Draw [address] [place] [address] [phone] 06/20/2021 [facility] [address] [place] [address] [phone] Scheduled Orders Name Type Priority Associated Diagnoses Orde r Schedule PT INR Lab Routine Cerebrovascular disease, arteriosclerotic, post-stroke Other, Please specify in Comments field for 26 Occurrences starting 06/10/2021 until 06/10/2022 Health Maintenance Due Date Last Done Comments [...] Documents on File Type Date Recorded Patient Subway Operator Expl 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
--- OUTSIDE RECORDS SUMMARY | 2023-07-25 04:58 | External Medical Summary ---
Author Name Unknown Address Unknown Organization K09:[facility] [place] [address] Laboratory Report Ordering Provider Test Date Status VARUNPHONG 06/05/2021 06:03:00 Final Observation Date Value Abnormality Reference (Units ) Status PT 06/05/2021 06:03:00 23.2 Above high normal 11 .5-14.6 (seconds) Final INR 06/05/2021 06:03:00 2.03 Above high normal 0. 84-1.14 Final Performing Location [facility] [place] [address]
--- OUTSIDE RECORDS SUMMARY | 2023-07-25 04:58 | External Medical Summary | Summary of Care ---
Author Name Unknown Organization [place] [address] Care Team Providers Care Reference Data Expert Name Role Phone Roger Alexandra MD Primary Care Provider [phone] Reason for Visit * Reason Onset Date Comments Home Health 06/09/2021 FYI Encounter Details Date Type Department Care Team Description 06/09/2021 Telephone Family Practice [facility] [address] [place] [address] Roger Alexandra MD [address] [facility] [place] [id number] Home Health (FYI) Allergies Active Allergy Reactions Severity Noted Date Comments Aspirin Unknown 12/12/2007 von Willebrand's disease Salicylates 03/01/2000 von Willebrand's disease documented as of this encounter (statuses as of 06/11/2021) Medications Medication Sig Dispensed Refills Start Date [...] Anxiety. 60 Tab 3 03/24/2021 Active Nystatin 007644 UNIT/GM External Powder (Nystop) 1 harriet, Powder, [...] 0 04/29/2021 Active Vitamin D3 1.25 MG (11430 UT) Oral CapsuleIndications: Vitamin D deficiency Take [...] as of this encounter (statuses as of 06/11/2021) Active Problems Problem Noted Date COPD, group [...] as of this encounter (statuses as of 06/11/2021) Resolved Problems Problem Noted Date Resolved Date [...] as of this encounter (statuses as of 06/11/2021) Immunizations Name Administration Dates Next Due H1N1 [...] encounter Miscellaneous Notes * Telephone Encounter - Aura Damico LPN - 06/09/2021 11:00 AM EDT Aria states that she received a referral from [facility] for patient for nursing, PT, OT, [place] Pilot and Mental Health Nurse They had also asked for a home health aid but patient states that she does not need that service She saw pt today She will fax orders to the office documented in this encounter Plan of Treatment Upcoming Encounters Date Type Specialty Care Team Description 06/12/2021 Office Visit Family Medicine Joy Cerda CRNP [address] [place] [address] [phone] 06/18/2021 Telemedicine Psychiatry Alisha Gandhi DO [address] [place] [address] [phone] 06/19/2021 Laboratory Laboratory Processing [facility], [facility] Mobile Home Draw [address] [place] [address] [phone] 06/20/2021 [facility] [address] [place] [address] [phone] Health Maintenance Due Date Last Done Comments [...] on File Type Date Recorded Patient Medical Insurance Clerk Expl 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
--- OUTSIDE RECORDS SUMMARY | 2023-07-25 04:58 | External Medical Summary | Summary of Care ---
Author Name Unknown Organization [facility] Address [place] [address] Care Team Providers Care Planning Analyst Name Role Phone Roger Alexandra MD Primary Care Provider [phone] Reason for Visit * Reason Comments Dosage Adjustment Via Phone (anticoag Cl inic) Encounter Details Date Type Department Care Team Description 06/10/2021 Anticoagulation Pharmacy Call Center [address] [facility] [place] [address] Telepharmacy, [facility] [address] [facility] [place] [address] [phone] longterm current use of anticoagulant therapy* Allergies Active [...] Anxiety. 60 Tab 3 03/24/2021 Active Nystatin 506918 UNIT/GM External Powder (Nystop) 1 harriet, Powder, [...] 0 04/29/2021 Active Vitamin D3 1.25 MG (23477 UT) Oral CapsuleIndications: Vitamin D deficiency Take [...] Progress Notes * Kim Mercado RPh - 06/10/2021 10:45 AM EDT Medication Therapy Disease Management - Anticoagulation Patient: Kimberly Kendall : 1960 Contacts Type Contact Phone 06/10/2021 10:48 AM EDT Phone (Outgoing) Kimberly Kendall (Self) [phone] (M) Spoke to Patient Current Warfarin Dose As of 06/10/2021 Warfarin maintenance plan: 2.5 mg (2.5 mg x 1) every Mon, Wed, Fri; 5 mg (5 mg x 1) all other days-dose given during admission to rehab Patient-Reported Symptoms: Patient Findings Comments: Pt discharged from [facility] to home. Per flow chart current dose: 2.5mg MWF, 5mg all other days. Pt is homebound and still requires GML. INR Result As of 06/10/2021 INR goal: 2.0-3.0 INR used for dosin.04 (06/08/2021) Warfarin Plan As of 06/10/2021 Full warfarin instructions: 2.5 mg every Mon, Wed, Fri; 5 mg all other days Next INR check: 06/19/2021 Additional Dosing Information: Description GML Repeat PT/INR in 1.5 week(s) Weekly dose: not changed Kim Mercado RPh Clinical Pharmacist 06/10/2021, 10:50 AM documented in this encounter Plan of Treatment Upcoming Encounters Date Type Specialty Care Team Description 06/12/2021 Office Visit Family Medicine Joy Cerda CRNP [address] [facility] [place] [address] [phone] 06/18/2021 Telemedicine Psychiatry Alisha Gandhi Paty, DO [address] [facility] [place] [address] Health Maintenance Due Date [...] Documents on File Type Date Recorded Patient Kettle Cook Expl 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
--- OUTSIDE RECORDS SUMMARY | 2023-07-25 04:58 | External Medical Summary | Summary of Care ---
Author Name Unknown Organization [place] [address] Care Team Providers Care Ground Operations Crew Member Name Role Phone Roger Alexandra MD Primary Care Provider [phone] Encounter Details Date Type Department Care Team Description 06/05/2021 Orders Only Lab Mobile Phlebotomy [facility] [address] [place], [place] [id number] Stuart Heredia, DO [address] [place] [address] equipment operator intermodal yard (current) use of anticoagulants* Allergies Active Allergy Reactions Severity Noted Date Comments Aspirin Unknown 12/12/2007 von Willebrand's disease Salicylates 03/01/2000 von Willebrand's disease documented as of this encounter (statuses as of 06/05/2021) Medications Medication Sig Dispensed Refills Start Date [...] Anxiety. 60 Tab 3 03/24/2021 Active Nystatin 176848 UNIT/GM External Powder (Nystop) 1 harriet, Powder, [...] 0 04/29/2021 Active Vitamin D3 1.25 MG (97635 UT) Oral CapsuleIndications: Vitamin D deficiency Take [...] as of this encounter (statuses as of 06/05/2021) Active Problems Problem Noted Date COPD, group [...] as of this encounter (statuses as of 06/05/2021) Resolved Problems Problem Noted Date Resolved Date [...] as of this encounter (statuses as of 06/05/2021) Immunizations Name Administration Dates Next Due H1N1 [...] Encounters Date Type Specialty Care Team Description 06/06/2021 Laboratory Laboratory Processing [place], [facility] [address] [place] [address] 06/12/2021 [facility] [address] [place] [address] [phone] 06/18/2021 Telemedicine Psychiatry Alisha Gandhi, DO [address] [place] [address] Scheduled Orders Name Type Priority Associated Diagnoses Orde r Schedule PT INR Lab Routine custodial (current) use of anticoagulants Expected: 06/06/2021, Expires: 06/05/2022 Health Maintenance Due Date Last Done Comments [...] as of this encounter Visit Diagnoses Diagnosis equipment operator 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
--- OUTSIDE RECORDS SUMMARY | 2023-07-25 04:58 | External Medical Summary | Summary of Care ---
Author Name Unknown Organization [facility] Address [place] [address] Care Team Providers Care Daycare Provider Name Role Phone Roger Alexandra MD Primary Care Provider [phone] Encounter Details Date Type Department Care Team Description 06/09/2021 Result Scan Pharmacy Call Center [address] [place] [address] [facility] [address] [facility] [place] [address] [phone] <No scans attached> Allergies Active Allergy Reactions [...] Anxiety. 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 current use of anticoagulant therapy 0 [...] Date Type Specialty Care Team Description 06/12/2021 [facility] 58 60 [facility] [place] [address] [phone] 06/12/2021 Office Visit Family Medicine Joy Cerda CRNP [address] [facility] [place] [address] 06/18/2021 Telemedicine Psychiatry Alisha Gandhi, DO [address] [facility] [place] [address] Health Maintenance Due Date [...] Date/Time Associated Diagnosis Comments OUTSIDE LAB RESULTS 06/09/2021 documented in this encounter Results * OUTSIDE LAB RESULTS (06/09/2021) Specimen Narrative Performed At documented in this encounter Advance Directives Documents on File Type Date Recorded Patient Neon Electrician Expl 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
--- OUTSIDE RECORDS SUMMARY | 2023-07-25 04:58 | External Medical Summary ---
Author Name Unknown Address Unknown Organization [facility] [address] [place] [address] Laboratory Report Ordering Provider Test Date Status PHONG BOND 06/08/2021 05:45:00 Final Observation Date Value Abnormality Reference (Units ) Status PT 06/08/2021 05:45:00 23.3 Above high normal 11 .5-14.6 (seconds) Final INR 06/08/2021 05:45:00 2.04 Above high normal 0. 84-1.14 Final Performing Location [facility] [address] [place] [address]
--- OUTSIDE RECORDS SUMMARY | 2023-07-25 04:58 | External Medical Summary ---
Author Name Unknown Address Unknown Organization K09:[facility] [place] [address] Laboratory Report Ordering Provider Test Date Status VARUNPHONG 06/06/2021 06:30:00 Final Observation Date Value Abnormality Reference (Units ) Status PT 06/06/2021 06:30:00 25.2 Above high normal 11 .5-14.6 (seconds) Final INR 06/06/2021 06:30:00 2.25 Above high normal 0. 84-1.14 Final Performing Location [facility] [place] [address]
--- OUTSIDE RECORDS SUMMARY | 2023-07-25 04:58 | External Medical Summary | Summary of Care ---
Author Name Unknown Organization [place] [address] Care Team Providers Care Flap Curer Name Role Phone Roger Alexandra MD Primary Care Provider [phone] Reason for Visit * Reason Onset Date Comments Medication Question 06/09/2021 Encounter Details Date Type Department Care Team Description 06/09/2021 Telephone Psychiatry, [place] [address] [place] [address] Alisha Gandhi, [address] [place] [address] Medication Question Allergies Active Allergy Reactions Severity Noted Date Comments Aspirin Unknown 12/12/2007 von Willebrand's disease Salicylates 03/01/2000 von Willebrand's disease documented as of this encounter (statuses as of 06/09/2021) Medications Medication Sig Dispensed Refills Start Date [...] Anxiety. 60 Tab 3 03/24/2021 Active Nystatin 457990 UNIT/GM External Powder (Nystop) 1 harriet, Powder, [...] 0 04/29/2021 Active Vitamin D3 1.25 MG (87015 UT) Oral CapsuleIndications: Vitamin D deficiency Take [...] as of this encounter (statuses as of 06/09/2021) Active Problems Problem Noted Date COPD, group [...] as of this encounter (statuses as of 06/09/2021) Resolved Problems Problem Noted Date Resolved Date [...] as of this encounter (statuses as of 06/09/2021) Immunizations Name Administration Dates Next Due H1N1 [...] encounter Miscellaneous Notes * Telephone Encounter - Alisha Gandhi DO - 06/09/2021 11:55 AM EDT Called Kimberly back. Left a message stating the Trazodone was stopped at her hospitalization for areason-- given dizziness. She was treated for CHF at that time . Discussed using medications such as melatonin to help get to sleep. Can discuss more sleep hygiene at our next appointment on 06/18 * Telephone Encounter - Renata Quintana OSA - 06/09/2021 11:18 AM EDT Patient requesting a call back regarding her medication. While she was inpatient at [facility] the Trazodone was stopped. Patient asking if she will be able to start back taking the Trazodone. Please advise. documented in this encounter Plan of Treatment Upcoming Encounters Date Type Specialty Care Team Description 06/12/2021 Anticoagulation Pharmacy Telepharmacy, [facility] 58 60 [facility] [place] [address] [phone] 06/12/2021 Office Visit Family Medicine Joy Cerda CRNP 132 [facility] [place] [address] [phone] 06/18/2021 Telemedicine Psychiatry Alisha Gandhi, DO [address] [place] [address] [phone] Health Maintenance Due Date Last Done Comments [...] Documents on File Type Date Recorded Patient Tong Setter Expl 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
--- OUTSIDE RECORDS SUMMARY | 2023-07-25 04:58 | External Medical Summary | Summary of Care ---
Author Name Unknown Organization [place] [address] Care Team Providers Care Dye Blender Name Role Phone Roger Alexandra MD Primary Care Provider [phone] Reason for Visit * Reason Onset Date Comments MyCode Consent 06/12/2021 Encounter Details Date Type Department Care Team Description 06/12/2021 Orders Only Outcomes Research Department [address] [place] [address] Rosario Velez CHRA MyCode Research Other*[id number]* Allergies Active Allergy Reactions Severity Noted Date Comments Aspirin Unknown 12/12/2007 von Willebrand's disease Salicylates 03/01/2000 von Willebrand's disease documented as of this encounter (statuses as of 06/12/2021) Medications Medication Sig Dispensed Refills Start Date End Date Status OXYGEN 4 L during the day as needed and at bedtime 0 5 Active Acetaminophen (TYLENOL) 325 MG CAPS Take by mouth. 0 Active Cholestyramine Light (QUESTRAN LIGHT) 4 GM/DOSE POWDIndications:C olitis Take 1 Scoopful Dosing Unit by mouth 2 times a day. in 6oz of liquid . 210 g 3 0 Active Albuterol Sulfate (PROAIR HFA) 108 (90 Base) MCG/ACT AERSIndications:B ronchitis, complicated Inhale 2 Puffs by mouth 4 times a day. 18 g 1 0 Active ondansetron (ZOFRAN) 4 MG Tablet Take 1 Tab by mouth every 8 hours as needed for Nausea. 15 Tab 0 0 Active Albuterol Sulfate (2.5 MG/3ML) 0.083% Inhalation Nebulization Solution (PROVENTIL)Indica tions:Bronchitis, complicated,COPD, severe (HCC) Inhale 1 Vial via nebulizer every 4 hours as needed for Wheezing. 20 mL 1 0 Active Warfarin Sodium 10 MG Oral Tablet Take 2 tablets on Wednesday and Wednesday, and 1.5 tablets all other days or as directed by anticoagulation pharmacist. 60 Tab 2 1 Active Furosemide 20 MG Oral Tablet (Lasix) take 1 tablet by mouth once daily if needed (3LB WEIGHT GAIN OR LEG SWELLING) 30 Tab 2 1 Active busPIRone HCl 10 MG Oral Tablet (Buspar) Take 1 Tab by mouth 2 times a day. 60 Tab 2 1 Active Disposable Brief X-LargeIndication s:Overactive bladder Attends X-Large Super Absorb Underwear 32 Each 2 1 Active hydrOXYzine HCl 50 MG Oral Tablet Take 1 Tab by mouth 3 times a day as needed for Anxiety. 60 Tab 3 1 Active Nystatin 620741 UNIT/GM External Powder (Nystop) 1 harriet, Powder, Topical twice daily, 1 EA, 0 Refill(s), Indication: Candidiasis of Skin, Route to Pharmacy Electronically, [facility] [address], [address], 10/02/20 10:43:00 EST, Height/Length Dosing, cm, 116.3, 10/02/20 10:43:00 EST, Weight Dosing, kg 15 g 1 1 Active guaiFENesin-Codei ne 100-10 MG/5ML Oral Syrup (Robitussin AC) Take 5 mL by mouth every 4 hours as needed for Cough. 120 mL 0 1 Active traMADol HCl 100 MG Oral TabletIndications :Chronic bilateral low back pain without sciatica Take 100 mg by mouth every 8 hours as needed for Pain, Moderate or Pain, Severe. 90 Tab 0 1 Active traZODone HCl 50 MG Oral Tablet (Desyrel) Take 1 Tab by mouth at bedtime. 30 Tab 2 1 Active Vitamin D3 1.25 MG (22897 UT) Oral CapsuleIndication s:Vitamin D deficiency Take 1 Cap by mouth once a week. 4 Cap 3 1 Active Vitamin D (Cholecalciferol) 25 MCG (1000 UT) Oral Capsule Take 1 Cap by mouth daily. 30 Cap 5 1 Active Isosorbide Mononitrate ER 30 MG Oral Tablet Extended Release 24 Hour (Imdur) take 1 tablet by mouth daily 30 Tab 5 1 Active LORazepam 0.5 MG Oral Tablet (Ativan) Take 1 Tab by mouth 3 times a day as needed for Anxiety. 90 Tab 0 1 Active Arnuity Ellipta 100 MCG/ACT Inhalation Aerosol Powder Breath Activated (fluticasone Furoate) DAILY 0 1 Active albuterol-ipratro pium (DUONEB) 2.5-0.5 MG/3ML nebulizer solution Inhale 3 mL by mouth every 4 hours as needed for Shortness of Breath or Wheezing. 0 5 06/12/20 21 Discontinued fluticasone (FLOVENT HFA) 110 MCG/ACT inhalerIndication s:Bronchitis, complicated Inhale 2 Puffs by mouth 2 times a day. 36 g 3 0 06/12/20 21 Discontinued Incruse Ellipta 62.5 MCG/INH Inhalation Aerosol Powder Breath Activated (umeclidinium [place]) 62.5 mcg. 0 1 06/12/20 21 Discontinued documented as of this encounter (statuses as of 06/12/2021) Active Problems Problem Noted Date COPD, group [...] as of this encounter (statuses as of 06/12/2021) Resolved Problems Problem Noted Date Resolved Date [...] as of this encounter (statuses as of 06/12/2021) Immunizations Name Administration Dates Next Due H1N1 [...] as of this encounter Progress Notes * Rosario Velez CHRA - 06/12/2021 3:13 PM EDT MyCode Consent Documentation Kimberly Kendall provided consent/authorization to participate in the MyCode Project. documented in this encounter Plan of Treatment Upcoming Encounters Date Type Specialty Care Team Description 06/18/2021 Telemedicine Psychiatry Alisha Gandhi, DO [address] [place] [address] 06/19/2021 Laboratory Laboratory Processing [facility] [address] [place] [address] [phone] 06/20/2021 [facility] [address] [address] [place] [address] [phone] Scheduled Orders Name Type Priority Associated Diagnoses Orde r Schedule MYCODE INITIAL ADULT Lab Routine MyCode Research Other*[id number] Expected: 06/12/2021 (Approximate), Expires: 07/02/2022 Health Maintenance Due Date Last Done Comments [...] this encounter Visit Diagnoses Diagnosis MyCode Research Other*[id number]- Primary documented in this encounter Advance Directives Documents on File Type Date Recorded Patient Veterans Rehabilitation Counselor Expl 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
--- OUTSIDE RECORDS SUMMARY | 2023-07-25 04:58 | External Medical Summary | Summary of Care ---
Author Name Unknown Organization [place] [address] Care Team Providers Care Production Truck Driver Name Role Phone Roger Alexandra MD Primary Care Provider [phone] Reason for Visit * Reason Onset Date Comments Advice 06/10/2021 Encounter Details Date Type Department Care Team Description 06/10/2021 Telephone Family Practice [facility] [address] [place] [id number] Roger Alexandra MD [address] [place] [address] [phone] Advice Allergies Active Allergy Reactions Severity Noted [...] Anxiety. 60 Tab 3 03/24/2021 Active Nystatin 941096 UNIT/GM External Powder (Nystop) 1 harriet, Powder, [...] 0 04/29/2021 Active Vitamin D3 1.25 MG (07038 UT) Oral CapsuleIndications: Vitamin D deficiency Take [...] Telephone Encounter - Roger Alexandra MD - 06/10/2021 5:03 PM EDT [place]. * Telephone Encounter - Ashia Arshad LPN - 06/10/2021 4:33 PM EDT Rachael calling from [facility] States that she was out to see pt today Rachael states that she is going to send orders to the office for your review and signature to see pt. * Telephone Encounter - Naina Cortez OSA - 06/10/2021 4:29 PM EDT Reason for patient's call: Rachael from [facility] Home Health Caller was transferred to [facility] at the nurse line. documented in this encounter Plan of Treatment Upcoming Encounters Date Type Specialty Care Team Description 06/12/2021 Office Visit Family Medicine Joy Cerda CRNP [address] [facility] [place] [address] [phone] 06/18/2021 Telemedicine Psychiatry Alisha Gandhi, DO [address] [place] [address] [phone] 06/19/2021 Laboratory Laboratory Processing [facility] Draw [address] [place] [address] [phone] 06/20/2021 [facility] [address] [place] [address] [phone] Health Maintenance Due Date Last Done Comments [...] Documents on File Type Date Recorded Patient Trucker Hand Expl 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
--- OUTSIDE RECORDS SUMMARY | 2023-07-25 04:58 | External Medical Summary | Summary of Care ---
Author Name Unknown Organization [place] [address] Care Team Providers Care Surgical Appliances Salesperson Name Role Phone Roger Alexandra MD Primary Care Provider [phone] Reason for Visit * Reason Onset Date Comments Medication Refill 06/12/2021 Encounter Details Date Type Department Care Team Description 06/12/2021 Refill [facility] [address] [place] [address] Alisha Gandhi, [address] [place], [place] [id number] Allergies Active Allergy Reactions Severity Noted Date Comments Aspirin Unknown 12/12/2007 von Willebrand's disease Salicylates 03/01/2000 von Willebrand's disease documented as of this encounter (statuses as of 06/12/2021) Medications Medication Sig Dispensed Refills Start Date End Date Status OXYGEN 4 L during the day as needed and at bedtime 0 02/14/2015 Active albuterol-ipratro pium (DUONEB) 2.5-0.5 MG/3ML nebulizer [...] 03/05/2020 Active fluticasone (FLOVENT HFA) 110 MCG/ACT inhalerIndication s:Bronchitis, [...] Anxiety. 60 Tab 3 03/24/2021 Active Nystatin 051257 UNIT/GM External Powder (Nystop) 1 harriet, Powder, [...] paranoid thoughts). 60 Tab 2 04/21/2021 Active guaiFENesin-Codei ne 100-10 MG/5ML Oral Syrup (Robitussin AC) Take 5 mL by mouth every 4 hours as needed for Cough. 120 mL 0 04/23/2021 Active traMADol HCl 100 MG Oral TabletIndications :Chronic bilateral low back pain without sciatica Take 100 mg by mouth every 8 hours as needed for Pain, Moderate or Pain, Severe. 90 Tab 0 04/30/2021 Active traZODone HCl 50 MG Oral Tablet (Desyrel) Take 1 Tab by mouth at bedtime. 30 Tab 2 04/29/2021 Active Vitamin D3 1.25 MG (29675 UT) Oral CapsuleIndication s:Vitamin D deficiency Take [...] for Anxiety. 90 Tab 0 06/12/2021 Active LORazepam 0.5 MG Oral Tablet (Ativan) Take 1 Tab by mouth 3 times a day as needed for Anxiety. 90 Tab 0 04/29/2021 1 Discontinue d(Refill) documented as of this [...] Telephone Encounter - Alisha Gandhi DO - 06/12/2021 12:55 PM EDT Signed Prescriptions: Disp Refills LORazepam 0.5 MG Oral Tablet (Ativan) 90 Tab 0 Sig: Take 1 Tab by mouth 3 times a day as needed for Anxiety. Authorizing Provider: ALISHA GANDHI * Telephone Encounter - Renata Quintana OSA - 06/12/2021 10:58 AM EDT Patient calling for refill on Ativan. Patient last seen on 04/29/2021 with return appointment scheduled for 06/18/2021. Patient had 0 cancelled appointments and 0 NO SHOW appointments. Medication was last filled on 04/29/2021 with 0 refills. documented in this encounter Plan of Treatment Upcoming Encounters Date Type Specialty Care Team Description 06/12/2021 Office Visit Family Medicine Joy Cerda CRNP [address] [facility] [place] [address] [phone] 06/18/2021 Telemedicine Psychiatry Gandhi, Alisha Newman, [address] [place] [address] 06/19/2021 Laboratory Laboratory Processing [place], [facility] Draw [address] [place] [address] 06/20/2021 [facility] [address] [facility] [address] Health Maintenance Due Date Last Done Comments COVID-19 Vaccine (1) 1972 Zoster Vaccines (1 of 2) 2010 *DEPRESSION SCREENING,ANNUAL FOR PTS 12 AND OVER 04/11/2015 BREAST CANCER SCREENING DISCUSSION YEARLY AGES 40-75 10/28/2016 10/28/2015, 04/27/2014, 05/12/2013, Additional history exists DTaP,Tdap,and Td Vaccines (2 - Td) 06/27/2018 06/27/2008 *DISCUSS TOBACCO CESSATION (REFER TO SMARTSET #8441) 01/04/2020 LIPID SCREEN EVERY 5 YRS-WOMEN AGE [...] on File Type Date Recorded Patient Family Independence Case Manager Expl 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
--- OUTSIDE RECORDS SUMMARY | 2023-07-25 04:58 | External Medical Summary | Summary of Care ---
Author Name Unknown Organization [place] [address] Care Team Providers Care Head Of Visual Merchandising Name Role Phone Roger Alexandra MD Primary Care Provider [phone] Encounter Details Date Type Department Care Team Description 06/04/2021 Orders Only Lab Mobile Ph[facility]botomy [facility] [address] [place], [place] [id number] Stuart Heredia, DO [address] [place] [address] vermin exterminator (current) use of anticoagulants* Allergies Active Allergy Reactions Severity Noted Date Comments Aspirin Unknown 12/12/2007 von Willebrand's disease Salicylates 03/01/2000 von Willebrand's disease documented as of this encounter (statuses as of 06/04/2021) Medications Medication Sig Dispensed Refills Start Date [...] Anxiety. 60 Tab 3 03/24/2021 Active Nystatin 049796 UNIT/GM External Powder (Nystop) 1 harriet, Powder, [...] 0 04/29/2021 Active Vitamin D3 1.25 MG (52245 UT) Oral CapsuleIndications: Vitamin D deficiency Take [...] as of this encounter (statuses as of 06/04/2021) Active Problems Problem Noted Date COPD, group [...] as of this encounter (statuses as of 06/04/2021) Resolved Problems Problem Noted Date Resolved Date [...] as of this encounter (statuses as of 06/04/2021) Immunizations Name Administration Dates Next Due H1N1 [...] Encounters Date Type Specialty Care Team Description 06/05/2021 Laboratory Laboratory Processing [place], [facility] [address] [place] [address] 06/05/2021 [facility] [address] [place] [address] [phone] 06/18/2021 Telemedicine Psychiatry Alisha Gandhi, DO [address] [place] [address] Scheduled Orders Name Type Priority Associated Diagnoses Orde r Schedule PT INR Lab Routine nursing home (current) use of anticoagulants Expected: 06/05/2021, Expires: 06/04/2022 Health Maintenance Due Date Last Done Comments [...] as of this encounter Visit Diagnoses Diagnosis vermin exterminator (current) use of anticoagulants- Primary Long-term (current) use of anticoagulants documented in this encounter Advance Directives Documents on File Type Date Recorded Patient Engine Installer Expl 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
--- OUTSIDE RECORDS SUMMARY | 2023-07-25 04:58 | External Medical Summary | Summary of Care ---
Author Name Unknown Organization [place] [address] Care Team Providers Care Manager Diesel Name Role Phone Roger Alexandra MD Primary Care Provider [phone] Reason for Referral * Evaluate & Treat - Unlimited Visits (Within 30 days (routine)) Status Reason Specialty Diagnoses / Procedures Referred By Contact Referred To Contact Authorized Specialty Services Required Pulmonary Diseases / Pulmonary Diagnoses COPD, group B, by GOLD 2017 classification ([facility]) Oxygen dependent Chronic hypoxemic respiratory failure (HCC) Joy Cerda CRNP [address] [address] Question Answer Referral Priority Within 30 days (routine) Primary Reason for Referral? Other Comments Chronic respiratory failure COPD Electronically signed by Joy CESPEDES at Reason for Visit * Reason Comments Hospital Follow-Up pt here to follow up , denies any concerns Encounter Details Date Type Department Care Team Description 06/12/2021 Office Visit Family [facility] [address] [address] Joy Cerda CRNP [address] [place] [address] [phone] COPD, group B, by GOLD 2017 classification ([facility])*; Oxygen dependent; Chronic hypoxemic respiratory failure (HCC) Allergies Active [...] Anxiety. 60 Tab 3 1 Active Nystatin 397983 UNIT/GM External Powder (Nystop) 1 harriet, Powder, Topical twice daily, 1 EA, 0 Refill(s), Indication: Candidiasis of Skin, Route to Pharmacy Electronically, [facility] - [address], [address], 10/02/20 10:43:00 EST, Height/Length [...] 2 1 Active Vitamin D3 1.25 MG (79172 UT) Oral CapsuleIndication s:Vitamin D deficiency Take [...] Activated (fluticasone Furoate) DAILY 0 1 Active Anoro Ellipta 62.5-25 MCG/INH Inhalation Aerosol Powder Breath Activated (umeclidinium-marley anterol) Inhale 1 Puff by mouth daily. 30 Each 11 1 Active albuterol-ipratro pium (DUONEB) 2.5-0.5 MG/3ML nebulizer solution Inhale 3 mL by mouth every 4 hours as needed for Shortness of Breath or Wheezing. 0 5 06/12/20 21 Discontinued fluticasone (FLOVENT HFA) 110 MCG/ACT inhalerIndication s:Bronchitis, complicated Inhale 2 Puffs by mouth 2 times a day. 36 g 3 0 06/12/20 21 Discontinued Mirtazapine 45 MG Oral Tablet (Remeron) Take 1 Tab by mouth at bedtime. 30 Tab 2 1 06/12/20 21 Discontinued QUEtiapine Fumarate 25 MG Oral Tablet (SEROquel) Take 1 Tab by mouth 2 times a day as needed (Insomnia, high anxiety, paranoid thoughts). 60 Tab 2 1 06/12/20 21 Discontinued Warfarin Sodium (WARFARIN CHECK DAILY DOSE, PHARMACIST MANAGED,) XX 0 Refill(s) 0 1 06/12/20 21 Discontinued Vitamin D3 1.25 MG (60798 UT) Oral Capsule 1,000 Int'l Units. 0 1 06/12/20 21 Discontinued Incruse Ellipta 62.5 MCG/INH Inhalation Aerosol Powder Breath Activated (umeclidinium [place]) 62.5 mcg. 0 1 06/12/20 21 Discontinued documented as of this encounter (statuses as of 06/12/2021) Active Problems Problem Noted Date Chronic hypoxemic [...] Sign Reading Time Taken Comments Blood Pressure 104/68 06/12/2021 2:57 PM EDT Pulse 96 06/12/2021 2:57 PM EDT Temperature 37.2 C (99 F) 06/12/2021 2:57 PM EDT Respiratory Rate 18 06/12/2021 2:57 PM EDT Oxygen Saturation 94% 06/12/2021 2:57 PM EDT 4 liters Inhaled Oxygen Concentration - - Weight - - Height - - Body Mass Index - - documented in this encounter Progress Notes * Joy Cerda CRNP - 06/12/2021 3:09 PM EDT Follow up Family Medicine Visit CC: Chief Complaint Patient presents with Hospital Follow-Up pt here to follow up, denies any concerns History of Present Illness: Kimberly Kendall is a 61 year old female presenting for hospital follow up with her Granddaughter. She was hospitalized at [facility] for COPD exacerbation. Admitted from 05/20/2021-05/25/2021. [facility] on [facility]25[facility] until 06/08/2021. COPD was treated with azithormycin, prednisone, nebulized abluterol with improvement. No evidence of pna or volume overload. Started incruse inhaler while in hospital. Currently using nebulizer twice daily On incruse and arnuity Discharged on 4LPM 07/06 INR was 8 on admission. INR at [facility] per patient was normal on 06/06/2021. Since discharge. Shortness of breath is unchanged. She needs help with all ADLs. Denies fever or chills. Denies cough. Some wheezing with exertion. Sometimes cough is productive. Denies heartburn. Denies sinus symptoms Social History Socioeconomic History Marital status: Spouse name: Not on file Number of children: 3 Years of education: Not on file Highest education level: Not on file Occupational History Not on file Social Needs Financial resource strain: Not on file Food insecurity Worry: Never true Inability: Never true Transportation needs Medical: Not on file Non-medical: Not on file Tobacco Use Smoking status: Former Smoker Packs/day: 0.25 Years: 32.00 Pack years: 8.00 Types: Cigarettes Quit date: 01/17/2015 Years since quittin.4 Smokeless tobacco: Never Used Tobacco comment: will only try with patches which are not covered by insurance Substance and Sexual Activity Alcohol use: No Drug use: No Sexual activity: Yes Partners: Male Lifestyle Physical activity Days per week: Not on file Minutes per session: Not on file Stress: Not on file Relationships Social connections Talks on phone: Not on file Gets together: Not on file Attends samaritan service: Not on file Active member of club or organization: Not on file Attends meetings of clubs or organizations: Not on file Relationship status: Not on file Intimate partner violence Fear of current or ex partner: Not on file Emotionally abused: Not on file Physically abused: Not on file Forced sexual activity: Not on file Other Topics Concern Not on file Social History Narrative Not on file Vaping/E-Cigarette Use Vaping/E-Cigarette Use Current Every Day User Vaping/E-Cigarette Substances Vaping/E-Cigarette Devices PMH: Past Medical History: Diagnosis Date Back disorder Benign neoplasm of colon 10/06/10 adenomatous/repeat colonoscopy in 1 yr Chronic bilateral low back pain without sciatica 10/14/2020 COPD, mild ([facility]) 04/06/2007 COPD, severe (HCC) 04/06/2007 Depressive disorder, not elsewhere classified Drug-seeking behavior 10/17/2020 Generalized osteoarthritis History of multiple strokes 10/17/2020 Hyperplastic colonic polyp Hypothyroidism 04/16/2015 Malaise and fatigue Mixed dyslipidemia Moderate episode of recurrent major depressive disorder (HCC) 03/05/2020 Morbid obesity due to excess calories (HCC) 03/05/2020 Narcotic addiction (HCC) 10/04/2014 Non compliance w medication regimen 10/14/2020 Oxygen dependent 12/29/2019 Paroxysmal atrial fibrillation (HCC) 10/14/2020 Patent foramen ovale PTSD (post-traumatic stress disorder) 03/05/2021 Schizoaffective disorder, chronic condition ([facility]) followed Dr Robby Diego [facility] Sequelae, post-stroke CVA Status asthmaticus Von Willebrand's disease (HCC) Past Surgical History: Procedure Laterality Date COLONOSCOPY, DIAGNOSTIC (RECTUM) 11/12/2020 large adenomatous polyp, repeat 6 mo / [facility] COLONOSCOPY, W/BIOPSY 10/06/2010 adenomatous/repeat colonoscopy in 1 yr COLONOSCOPY, W/BIOPSY 05/22/2013 hyperplastic polyp EGD, FLEXIBLE, DIAGNOSTIC 02/26/2015 retained food/[facility] EGD, FLEXIBLE, DIAGNOSTIC 11/12/2020 Gastric submucosal mass / [facility] EGD, FLEXIBLE, DIAGNOSTIC 11/06/2020 gastritis / [facility] EGD, FLEXIBLE, W/BIOPSY 05/19/2013 EGD, W/ENDOSCOPIC US 11/05/2011 UPPER GI ENDOSCOPY ENDOSCOPIC ULTRASOUND performed by BERENICE ASHBY at [facility]; REPAIR INITIAL INGUINAL HERNIA REMOVE GALLBLADDER TOTAL HYSTERECTOMY and bso Outpatient Medications Marked as Taking for the 06/12/21 encounter (Office Visit) with COY Youngblood Medication Sig Arnuity Ellipta 100 MCG/ACT Inhalation Aerosol Powder Breath Activated (fluticasone Furoate) DAILY Incruse Ellipta 62.5 MCG/INH Inhalation Aerosol Powder Breath Activated (umeclidinium [place]) 62.5 mcg. LORazepam 0.5 MG Oral Tablet (Ativan) Take 1 Tab by mouth 3 times a day as needed for Anxiety. Isosorbide Mononitrate ER 30 MG Oral Tablet Extended Release 24 Hour (Imdur) take 1 tablet by mouth daily Vitamin D (Cholecalciferol) 25 MCG (1000 UT) Oral Capsule Take 1 Cap by mouth daily. Vitamin D3 1.25 MG (63159 UT) Oral Capsule Take 1 Cap by mouth once a week. traMADol HCl 100 MG Oral Tablet Take 100 mg by mouth every 8 hours as needed for Pain, Moderateor Pain, Severe. traZODone HCl 50 MG Oral Tablet (Desyrel) Take 1 Tab by mouth at bedtime. guaiFENesin-Codeine 100-10 MG/5ML Oral Syrup (Robitussin AC) Take 5 mL by mouth every 4 hours as needed for Cough. Nystatin 124962 UNIT/GM External Powder (Nystop) 1 harriet, Powder, Topical twice daily, 1 EA, 0 Refill(s), Indication: Candidiasis of Skin, Route to Pharmacy Electronically, [facility] - [address], [address], 10/02/20 10:43:00 EST, Height/Length Dosing, cm, 116.3, 10/02/20 10:43:00 EST, Weight Dosing, kg hydrOXYzine HCl 50 MG Oral Tablet Take 1 Tab by mouth 3 times a day as needed for Anxiety. Disposable Brief X-Large Attends X-Large Super Absorb Underwear busPIRone HCl 10 MG Oral Tablet (Buspar) Take 1 Tab by mouth 2 times a day. Furosemide 20 MG Oral Tablet (Lasix) take 1 tablet by mouth once daily if needed (3LB WEIGHT GAIN OR LEG SWELLING) Warfarin Sodium 10 MG Oral Tablet Take 2 tablets on Wednesday and Wednesday, and 1.5 tablets all other days or as directed by anticoagulation pharmacist. Albuterol Sulfate (2.5 MG/3ML) 0.083% Inhalation Nebulization Solution (PROVENTIL) Inhale 1 Vial via nebulizer every 4 hours as needed for Wheezing. ondansetron (ZOFRAN) 4 MG Tablet Take 1 Tab by mouth every 8 hours as needed for Nausea. Albuterol Sulfate (PROAIR HFA) 108 (90 Base) MCG/ACT AERS Inhale 2 Puffs by mouth 4 times a day. fluticasone (FLOVENT HFA) 110 MCG/ACT inhaler Inhale 2 Puffs by mouth 2 times a day. Cholestyramine Light (QUESTRAN LIGHT) 4 GM/DOSE POWD Take 1 Scoopful Dosing Unit by mouth 2 times a day. in 6oz of liquid . Acetaminophen (TYLENOL) 325 MG CAPS Take by mouth. albuterol-ipratropium (DUONEB) 2.5-0.5 MG/3ML nebulizer solution Inhale 3 mL by mouth every 4 hours as needed for Shortness of Breath or Wheezing. OXYGEN 4 L during the day as needed and at bedtime Review of patient's allergies indicates: Allergen Reactions Aspirin Unknown von Willebrand's disease Salicylates von Willebrand's disease Most Recent Immunizations Administered Date(s) Administered H1N1 2009 Influenza, IM 12/19/2009 Pneumococcal Polysaccharide PPV23 (Pneumovax) 03/20/2009 Seasonal Influenza, Quadrivalent, No Preserve, IM 08/21/2015 Seasonal Influenza, Split, IIV3, With Preserve, Inj 08/01/2014 TDAP (age 11 and older)(Adacel) 06/27/2008 Review of Systems: Review of Systems Constitutional: Negative for fatigue. Respiratory: Positive for cough, chest tightness, shortness of breath and wheezing. Cardiovascular: Negative for chest pain, palpitations and leg swelling. Gastrointestinal: Negative for abdominal pain. Musculoskeletal: Left leg pain Psychiatric/Behavioral: Negative for sleep disturbance. Physical Exam: BP 104/68 (BP Site: Left Arm, BP Position: Sitting, BP Cuff Size: Large) | Pulse 96 | Temp 37.2 C(99 F) (Tympanic) | Resp 18 | SpO2 94% Comment: 4 liters Physical Exam Constitutional: Comments: Seated in wheelchair HENT: Head: Normocephalic. Eyes: Pupils: Pupils are equal, round, and reactive to light. Neck: Musculoskeletal: Normal range of motion. Cardiovascular: Rate and Rhythm: Normal rate and regular rhythm. Pulmonary: Breath sounds: Decreased breath sounds and wheezing present. No rhonchi or rales. Neurological: Mental Status: She is alert and oriented to person, place, and time. Psychiatric: Attention and Perception: Attention normal. Mood and Affect: Mood is anxious. Speech: Speech normal. Behavior: Behavior is cooperative. Thought Content: Thought content normal. Cognition and Memory: Cognition normal. Assessment and Plan: 1. COPD, group B, by GOLD 2017 classification (HCC) S/p hospital admission for copd exacerbation Treated with prednisone and azithromycin Stop incruse Start anoro Continue arnuity Increase nebulized albuterol to every 6 hours Consider flutter device Still vaping nicotine- recommend cessation - PULMONARY REFERRAL OP 2. Oxygen dependent oN 4lpm 24/7 - PULMONARY REFERRAL OP 3. Chronic hypoxemic respiratory failure (HCC) ON 4lpm 24/7 Consider pulm stress test and PFT - PULMONARY REFERRAL OP I have advised the patient to call our office incase of any worsening or new symptoms. I spent a total of 40-54 minutes (exact time 40 mins) on the date of service in preparation, delivery, and documentation of the care provided to Kimberly Kendall excluding any time spent in the performance of separately billed services. Zahraa, SIMEON, COY [facility] documented in this encounter Nursing Notes * Nissa Richter LPN - 06/12/2021 2:57 PM EDT The patient has been properly identified by confirmation of name and date of . Chief Complaint Patient presents with Hospital Follow-Up pt here to follow up, denies any concerns documented in this encounter Plan of Treatment Upcoming Encounters Date Type Specialty Care Team Description 06/18/2021 Telemedicine Psychiatry Alisha Gandhi DO [address] [place] [address] [phone] 06/19/2021 Laboratory Laboratory Processing [facility], [facility] Mobile Home Draw [address] [place] [address] [phone] 06/20/2021 [facility]ticoagulation [facility] [address] [address], [place] [id number] Scheduled Referrals Name Type Priority Associated Diagnoses Orde r Schedule PULMONARY REFERRAL OP Referral Within 30 days (routine) COPD, group B, by GOLD 2017 classification (HCC) Oxygen dependent Chronic hypoxemic respiratory failure (HCC) Ordered: 06/12/2021 Health Maintenance Due Date Last Done Comments [...] B, by GOLD 2017 classification (HCC)- Primary Oxygen dependent Dependence on supplemental oxygen Chronic hypoxemic respiratory failure (HCC) Chronic respiratory failure documented in this encounter Advance Directives Documents on File Type Date Recorded Patient Environmental Engineering Technician Expl 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 Advanced Directive Advanced Directive Advanced Directive Advanced Directive"
--- OUTSIDE RECORDS SUMMARY | 2023-07-25 04:58 | External Medical Summary | Summary of Care ---
Author Name Unknown Organization [facility] Address [place] [address] Care Team Providers Care Supervisor Esters And Emulsifiers Name Role Phone Roger Alexandra MD Primary Care Provider [phone] Reason for Visit * Reason Comments Dosage Adjustment Via Phone (anticoag Cl inic) Encounter Details Date Type Department Care Team Description 06/05/2021 Anticoagulation Pharmacy Call Center [address] [facility] [address] [address] Telepharmacy, [facility] [address] [facility] [address] [address] [phone] custodial current use of anticoagulant therapy* Allergies [...] Anxiety. 60 Tab 3 03/24/2021 Active Nystatin 544399 UNIT/GM External Powder (Nystop) 1 harriet, Powder, [...] 0 04/29/2021 Active Vitamin D3 1.25 MG (36994 UT) Oral CapsuleIndications: Vitamin D deficiency Take [...] Progress Notes * Kim Mercado RPh - 06/05/2021 11:02 AM EDT [facility] [phone] LVM to Fawn WALDROP at [facility] today. Advised to call back with any discharge plans. [facility] will follow up. Kim Mercado Rph, Pharm.D. 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
--- OUTSIDE RECORDS SUMMARY | 2023-07-25 04:59 | External Medical Summary ---
Author Name Unknown Address Unknown Organization K09:[facility] [place] [address] Laboratory Report Ordering Provider Test Date Status VARUNPHONG 05/29/2021 06:08:00 Final Observation Date Value Abnormality Reference (Units ) Status PT 05/29/2021 06:08:00 24.4 Above high normal 11 .5-14.6 (seconds) Final INR 05/29/2021 06:08:00 2.16 Above high normal 0. 84-1.14 Final Performing Location [facility] [place] [address]
--- OUTSIDE RECORDS SUMMARY | 2023-07-25 04:59 | External Medical Summary | Summary of Care ---
Author Name Unknown Organization [place] [address] Care Team Providers Care Senior Analyst Programmer Name Role Phone Roger Alexandra MD Primary Care Provider [phone] Encounter Details Date Type Department Care Team Description 05/30/2021 Orders Only Lab Mobile Phlebotomy [facility] [address], [place] [id number] Stuart Heredia, DO [address] [place], [place] [id number] Routine medical exam* Allergies Active Allergy Reactions Severity Noted Date Comments Aspirin Unknown 12/12/2007 von Willebrand's disease Salicylates 03/01/2000 von Willebrand's disease documented as of this encounter (statuses as of 05/30/2021) Medications Medication Sig Dispensed Refills Start Date [...] Anxiety. 60 Tab 3 03/24/2021 Active Nystatin 927523 UNIT/GM External Powder (Nystop) 1 harriet, Powder, [...] 0 04/29/2021 Active Vitamin D3 1.25 MG (78133 UT) Oral CapsuleIndications: Vitamin D deficiency Take [...] as of this encounter (statuses as of 05/30/2021) Active Problems Problem Noted Date COPD, group [...] as of this encounter (statuses as of 05/30/2021) Resolved Problems Problem Noted Date Resolved Date [...] as of this encounter (statuses as of 05/30/2021) Immunizations Name Administration Dates Next Due H1N1 [...] Date Type Specialty Care Team Description 06/05/2021 Anticoagulation Pharmacy Telepharmacy, [facility] [address] [place] [address] [phone] 06/18/2021 Telemedicine Psychiatry Gandhi, Alisha Paty, DO [address] [place] [address] Scheduled Orders Name Type Priority Associated Diagnoses Orde r Schedule PT INR Lab Routine Routine medical exam Expected: 05/30/2021, Expires: 2 Health Maintenance Due Date Last Done Comments [...] SCREEN EVERY 3 YRS-AGE 45 AND ABOVE 05/26/2024 05/26/2021, 10/17/2020, 12/29/2019, Additional history exists Pneumococcal Vaccine: Pediatrics (0 [...] on File Type Date Recorded Patient Report Checker Expl 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
--- OUTSIDE RECORDS SUMMARY | 2023-07-25 04:59 | External Medical Summary ---
Author Name Unknown Address Unknown Organization [facility] [address] [place] [address] Laboratory Report Ordering Provider Test Date Status VARUNPHONG 05/26/2021 12:48:00 Final Observation Date Value Abnormality Reference (Units ) Status PT 05/26/2021 12:48:00 25.6 Above high normal 11 .5-14.6 (seconds) Final INR 05/26/2021 12:48:00 2.29 Above high normal 0. 84-1.14 Final Performing Location [facility] [address] [place] [address]
--- OUTSIDE RECORDS SUMMARY | 2023-07-25 04:59 | External Medical Summary ---
Author Name Unknown Address Unknown Organization K09:[facility] [place] [address] Laboratory Report Ordering Provider Test Date Status PHONG BOND 06/04/2021 05:45:00 Final Observation Date Value Abnormality Reference (Units ) Status PT 06/04/2021 05:45:00 24.5 Above high normal 11 .5-14.6 (seconds) Final INR 06/04/2021 05:45:00 2.17 Above high normal 0. 84-1.14 Final Performing Location [facility] [place] [address]
--- OUTSIDE RECORDS SUMMARY | 2023-07-25 04:59 | External Medical Summary ---
Author Name Unknown Address Unknown Organization K09:[facility] [place] [address] Laboratory Report Ordering Provider Test Date Status PHONG BOND 05/26/2021 06:20:00 Final Observation Date Value Abnormality Reference (Units ) Status WBC, Total 05/26/2021 06:20:00 11.21 Above high normal 4 .00-10.80 (K/uL) Final RBC 05/26/2021 06:20:00 4.04 3.85-5.15 (M/uL) Final Hemoglobin 05/26/2021 06:20:00 11.6 Below low normal 12 .0-15.3 (g/dL) Final HCT 05/26/2021 06:20:00 36.1 36.0-45.2 (%) Final MCV 05/26/2021 06:20:00 89.4 81.5-97.5 (fL) Final MCH 05/26/2021 06:20:00 28.7 27.0-34.0 (pg) Final MCHC 05/26/2021 06:20:00 32.1 32.0-36.0 (g/dL) Final RDW 05/26/2021 06:20:00 17.4 Above high normal 11 .5-15.5 (%) Final Platelets 05/26/2021 06:20:00 462 Above high normal 14 0-400 (K/uL) Final MPV 05/26/2021 06:20:00 8.6 6.6-11.1 ( fL) Final Performing Location [facility] [place] [address]
--- OUTSIDE RECORDS SUMMARY | 2023-07-25 04:59 | External Medical Summary | Summary of Care ---
Author Name Unknown Organization [place] [address] Care Team Providers Care Patternmaker Grader Name Role Phone Roger Alexandra MD Primary Care Provider [phone] Encounter Details Date Type Department Care Team Description 06/01/2021 Orders Only Lab Mobile Phlebotomy [facility] [address] [place], [place] [id number] Stuart Heredia, DO [address] [place], [place] [id number] Routine medical exam* Allergies Active Allergy Reactions Severity Noted Date Comments Aspirin Unknown 12/12/2007 von Willebrand's disease Salicylates 03/01/2000 von Willebrand's disease documented as of this encounter (statuses as of 06/01/2021) Medications Medication Sig Dispensed Refills Start Date [...] Anxiety. 60 Tab 3 03/24/2021 Active Nystatin 078726 UNIT/GM External Powder (Nystop) 1 harriet, Powder, [...] 0 04/29/2021 Active Vitamin D3 1.25 MG (88433 UT) Oral CapsuleIndications: Vitamin D deficiency Take [...] as of this encounter (statuses as of 06/01/2021) Active Problems Problem Noted Date COPD, group [...] as of this encounter (statuses as of 06/01/2021) Resolved Problems Problem Noted Date Resolved Date [...] as of this encounter (statuses as of 06/01/2021) Immunizations Name Administration Dates Next Due H1N1 [...] Encounters Date Type Specialty Care Team Description 06/02/2021 Laboratory Laboratory Processing [place], [facility] [address] [place] [address] 06/05/2021 [facility] [address] [place] [address] [phone] 06/18/2021 Telemedicine Psychiatry Alisha Gandhi, DO [address] [place] [address] Scheduled Orders Name Type Priority Associated Diagnoses Orde r Schedule BASIC METABOLIC PANEL Lab Routine Routine medical exam Expected: 06/02/2021, Expires: 06/01/2022 CBC Lab Routine Routine medical exam Expected: 06/02/2021, Expires: 06/01/2022 PT INR Lab Routine Routine medical exam Expected: 06/02/2021, Expires: 06/01/2022 Health Maintenance Due Date Last Done Comments [...] Documents on File Type Date Recorded Patient Salon/Spa Manager Expl 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
--- OUTSIDE RECORDS SUMMARY | 2023-07-25 04:59 | External Medical Summary ---
Author Name Unknown Address Unknown Organization K0G[facility] [address] [place] [address] Laboratory Report Ordering Provider Test Date Status PHONG BOND 06/01/2021 08:00:17 Final Observation Date Value Abnormality Reference (Units ) Status PT 06/01/2021 08:00:17 31.1 Above high normal 11 .5-14.6 (seconds) Final INR 06/01/2021 08:00:17 2.95 Above high normal 0. 84-1.14 Final Performing Location [facility] [address] [place] [address]
--- OUTSIDE RECORDS SUMMARY | 2023-07-25 04:59 | External Medical Summary ---
Author Name Unknown Address Unknown Organization K09:[facility] [place] [address] Laboratory Report Ordering Provider Test Date Status PHONG BOND 06/02/2021 06:00:00 Final Observation Date Value Abnormality Reference (Units ) Status WBC, Total 06/02/2021 06:00:00 13.28 Above high normal 4 .00-10.80 (K/uL) Final RBC 06/02/2021 06:00:00 4.07 3.85-5.15 (M/uL) Final Hemoglobin 06/02/2021 06:00:00 11.8 Below low normal 12 .0-15.3 (g/dL) Final HCT 06/02/2021 06:00:00 36.7 36.0-45.2 (%) Final MCV 06/02/2021 06:00:00 90.2 81.5-97.5 (fL) Final MCH 06/02/2021 06:00:00 29.0 27.0-34.0 (pg) Final MCHC 06/02/2021 06:00:00 32.2 32.0-36.0 (g/dL) Final RDW 06/02/2021 06:00:00 18.4 Above high normal 11 .5-15.5 (%) Final Platelets 06/02/2021 06:00:00 479 Above high normal 14 0-400 (K/uL) Final MPV 06/02/2021 06:00:00 8.4 6.6-11.1 ( fL) Final Performing Location [facility] [place] [address]
--- OUTSIDE RECORDS SUMMARY | 2023-07-25 04:59 | External Medical Summary ---
Author Name Unknown Address Unknown Organization K09:[facility] [address] Laboratory Report Ordering Provider Test Date Status PHONG BOND 05/26/2021 06:20:00 Final Observation Date Value Abnormality Reference (Units ) Status BUN 05/26/2021 06:20:00 22 Above high normal 6-20 (mg/dL) Final Creatinine 05/26/2021 06:20:00 0.8 0.5-1.0 (mg/dL) Final Glomerular filtration rate/1.73 sq M.predicted [Volume Rate/Area] in Serum, Plasma or Blood by Creatinine-based formula (CKD-EPI) 05/26/2021 06:20:00 85.5 >=60.0 (mL/min) Final Performing Location [facility] [place]heer [place] [address]
--- OUTSIDE RECORDS SUMMARY | 2023-07-25 04:59 | External Medical Summary | Summary of Care ---
Author Name Unknown Organization [facility] Address [place] [address] Care Team Providers Care Tubular Stock Glass Bulb Machine Former Name Role Phone Roger Alexandra MD Primary Care Provider [phone] [phone] Encounter Details Date Type Department Care Team Description 05/25/2021 Scan Encounter Unspecified Department <No scans attached> Allergies Active Allergy Reactions Severity Noted Date Comments Aspirin Unknown 12/12/2007 von Willebrand's disease Salicylates 03/01/2000 von Willebrand's disease documented as of this encounter (statuses as of 05/26/2021) Medications Medication Sig Dispensed Refills Start Date [...] Anxiety. 60 Tab 3 03/24/2021 Active Nystatin 409333 UNIT/GM External Powder (Nystop) 1 harriet, Powder, Topical twice daily, 1 EA, 0 Refill(s), Indication: Candidiasis of Skin, Route to [facility]ically, [facility] [address], [address], 10/02/20 10:43:00 EST, Height/Length Dosing, cm, [...] 0 04/29/2021 Active Vitamin D3 1.25 MG (81623 UT) Oral CapsuleIndications: Vitamin D deficiency Take [...] as of this encounter (statuses as of 05/26/2021) Active Problems Problem Noted Date COPD, group [...] as of this encounter (statuses as of 05/26/2021) Resolved Problems Problem Noted Date Resolved Date [...] as of this encounter (statuses as of 05/26/2021) Immunizations Name Administration Dates Next Due H1N1 [...] Encounters Date Type Specialty Care Team Description 05/27/2021 [facility] [address] 60 [facility] [place] [address] [phone] 06/18/2021 Telemedicine Psychiatry Alisha Gandhi, DO [address] [facility] [place] [address] Health Maintenance Due Date [...] Documents on File Type Date Recorded Patient Assistant Professor Of Anthropology Expl 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
--- OUTSIDE RECORDS SUMMARY | 2023-07-25 04:59 | External Medical Summary | Summary of Care ---
Author Name Unknown Organization [place] [address] Care Team Providers Care Chemotherapist Name Role Phone Roger Alexandra MD Primary Care Provider +1 [phone] Encounter Details Date Type Department Care Team Description 05/27/2021 Orders Only Lab Mobile Phlebotomy [facility] [address] [place], [place] [id number] Stuart Heredia, DO [address] [place], [place] [id number] Routine medical exam* Allergies Active Allergy Reactions Severity Noted Date Comments Aspirin Unknown 12/12/2007 von Willebrand's disease Salicylates 03/01/2000 von Willebrand's disease documented as of this encounter (statuses as of 05/27/2021) Medications Medication Sig Dispensed Refills Start Date [...] Anxiety. 60 Tab 3 03/24/2021 Active Nystatin 601023 UNIT/GM External Powder (Nystop) 1 harriet, Powder, Topical twice daily, 1 EA, 0 Refill(s), Indication: Candidiasis of Skin, Route to Pharmacy Electronically, [facility] - [address], 160, 10/02/20 10:43:00 EST, Height/Length [...] 0 04/29/2021 Active Vitamin D3 1.25 MG (49972 UT) Oral CapsuleIndications: Vitamin D deficiency Take [...] as of this encounter (statuses as of 05/27/2021) Active Problems Problem Noted Date COPD, group [...] as of this encounter (statuses as of 05/27/2021) Resolved Problems Problem Noted Date Resolved Date [...] as of this encounter (statuses as of 05/27/2021) Immunizations Name Administration Dates Next Due H1N1 [...] Date Type Specialty Care Team Description 05/27/2021 [facility] [address] [place] [address] [phone] 05/29/2021 Laboratory Laboratory Processing [facility], [facility] Mobile Home Draw [address] [place] [address] 06/18/2021 Telemedicine Psychiatry Alisha Gandhi DO [address] [place] [address] Scheduled Orders Name Type Priority Associated Diagnoses Orde r Schedule PT INR Lab Routine Routine medical exam Expected: 05/27/2021, Expires: 2 Health Maintenance Due Date Last [...] Documents on File Type Date Recorded Patient Shipwright Supervisor Expl 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
--- OUTSIDE RECORDS SUMMARY | 2023-07-25 04:59 | External Medical Summary ---
Author Name Unknown Address Unknown Organization K09:[facility] [place] [address] Laboratory Report Ordering Provider Test Date Status PHONG BOND 2021 05:47:00 Final Observation Date Value Abnormality Reference (Units ) Status PT 2021 05:47:00 22.4 Above high normal 11 .5-14.6 (seconds) Final INR 2021 05:47:00 1.94 Above high normal 0. 84-1.14 Final Performing Location [facility] [place] [place] [address]
--- OUTSIDE RECORDS SUMMARY | 2023-07-25 04:59 | External Medical Summary | Summary of Care ---
Author Name Unknown Organization [facility] Address [place] [address] Care Team Providers Care Olive Knocker Name Role Phone Roger Alexandra MD Primary Care Provider [phone] [phone] Reason for Visit * Reason Comments Dosage Adjustment Via Phone (anticoag Cl inic) Encounter Details Date Type Department Care Team Description 05/29/2021 Anticoagulation Pharmacy Call Center [address] [facility] [place] [address] Telepharmacy, [facility] [address] [facility] [place] [address] [phone] care home current use of anticoagulant therapy* Allergies Active Allergy Reactions Severity Noted Date Comments Aspirin Unknown 12/12/2007 von Willebrand's disease Salicylates 03/01/2000 von Willebrand's disease documented as of this encounter (statuses as of 05/29/2021) Medications Medication Sig Dispensed Refills Start Date [...] Anxiety. 60 Tab 3 03/24/2021 Active Nystatin 581255 UNIT/GM External Powder (Nystop) 1 harriet, Powder, [...] 0 04/29/2021 Active Vitamin D3 1.25 MG (16840 UT) Oral CapsuleIndications: Vitamin D deficiency Take [...] as of this encounter (statuses as of 05/29/2021) Active Problems Problem Noted Date COPD, group [...] as of this encounter (statuses as of 05/29/2021) Resolved Problems Problem Noted Date Resolved Date [...] as of this encounter (statuses as of 05/29/2021) Immunizations Name Administration Dates Next Due H1N1 [...] of this encounter Progress Notes * Vignesh Patel RPh - 05/29/2021 11:00 AM EDT Called [facility] spoke to Saray, Patient remains admitted this time tentative discharge plans state 06/08, [facility] will continue to follow up for updates/discharge plan. Thanks, Vignesh Patel RPh Staff Pharmacist Telepharmacy 05/29/2021,11:05 AM documented in this encounter Plan of Treatment Upcoming Encounters Date Type Specialty Care Team Description 06/05/2021 [facility] Telepharmacy, [facility] [address] [facility] [place] [address] [phone] 06/18/2021 Telemedicine Psychiatry Alisha Gandhi, DO [address] [facility] [address] Health Maintenance Due Date Last Done [...] Documents on File Type Date Recorded Patient Face Burler Expl 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
--- OUTSIDE RECORDS SUMMARY | 2023-07-25 04:59 | External Medical Summary | Summary of Care ---
Author Name Unknown Organization [facility] Address [place] [address] Care Team Providers Care Rice Drier Operator Name Role Phone Roger Alexandra MD Primary Care Provider [phone] [phone] Reason for Visit * Reason Comments Dosage Adjustment Via Phone (anticoag Cl inic) Encounter Details Date Type Department Care Team Description 2021 Anticoagulation Pharmacy Call Center 58[address] [facility] [place] [address] Telepharmacy, [facility] 58 60 [facility] [place] [address] [phone] assisted current use of anticoagulant therapy* Allergies Active [...] Anxiety. 60 Tab 3 03/24/2021 Active Nystatin 956927 UNIT/GM External Powder (Nystop) 1 harriet, Powder, [...] 0 04/29/2021 Active Vitamin D3 1.25 MG (63654 UT) Oral CapsuleIndications: Vitamin D deficiency Take [...] Progress Notes * Kim Mercado RPh - 05/27/2021 9:03 PM EDT Per chart review, pt admitted to [facility] rehab. [facility] will follow up at discharge. Kim Mercado Rph, Pharm.D. Clinical Pharmacist Telepharmacy 05/27/2021,9:03 PM documented in this encounter Plan of Treatment Upcoming Encounters Date Type Specialty Care Team Description 05/29/2021 Laboratory Laboratory Processing [facility], [facility] Mobile Home Draw [address] [place] [address] 06/18/2021 Telemedicine Psychiatry Alisha Gandhi DO [address] [place] [address] Health Maintenance Due Date Last [...] Documents on File Type Date Recorded Patient Spiral Winder Expl 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
--- OUTSIDE RECORDS SUMMARY | 2023-07-25 04:59 | External Medical Summary ---
Author Name Unknown Address Unknown Organization K09:[facility] [place] [address] Laboratory Report Ordering Provider Test Date Status PHONG BOND 06/02/2021 06:00:00 Final Observation Date Value Abnormality Reference (Units ) Status BUN 06/02/2021 06:00:00 23 Above high normal 6-20 (mg/dL) Final Creatinine 06/02/2021 06:00:00 0.9 0.5-1.0 (mg/dL) Final Glomerular filtration rate/1.73 sq M.predicted [Volume Rate/Area] in Serum, Plasma or Blood by Creatinine-based formula (CKD-EPI) 06/02/2021 06:00:00 65.7 >=60.0 (mL/min) Final Performing Location [facility] [place] [address]
--- OUTSIDE RECORDS SUMMARY | 2023-07-25 04:59 | External Medical Summary ---
Author Name Unknown Address Unknown Organization K09:[facility] [place] [address] Laboratory Report Ordering Provider Test Date Status PHONG BOND 05/30/2021 06:00:00 Final Observation Date Value Abnormality Reference (Units ) Status PT 05/30/2021 06:00:00 28.1 Above high normal 11 .5-14.6 (seconds) Final INR 05/30/2021 06:00:00 2.59 Above high normal 0. 84-1.14 Final Performing Location [facility] [place] [address]
--- OUTSIDE RECORDS SUMMARY | 2023-07-25 04:59 | External Medical Summary ---
Author Name Unknown Address Unknown Organization [facility]0G[facility] [address] [place] [address] Laboratory Report Ordering Provider Test Date Status VARUNTRAVISANYIKEITH 05/31/2021 08:41:27 Final Observation Date Value Abnormality Reference (Units ) Status PT 05/31/2021 08:41:27 32.3 Above high normal 11 .5-14.6 (seconds) Final INR 05/31/2021 08:41:27 3.08 Above high normal 0. 84-1.14 Final Performing Location [facility] [place] [address] [place] [address]
--- OUTSIDE RECORDS SUMMARY | 2023-07-25 04:59 | External Medical Summary ---
Author Name Unknown Address Unknown Organization K09:[facility] [place] [address] Laboratory Report Ordering Provider Test Date Status VARUNPHONG 06/02/2021 07:18:45 Final Observation Date Value Abnormality Reference (Units ) Status PT 06/02/2021 07:18:45 29.8 Above high normal 11 .5-14.6 (seconds) Final INR 06/02/2021 07:18:45 2.79 Above high normal 0. 84-1.14 Final Performing Location [facility] [place] [address]
--- OUTSIDE RECORDS SUMMARY | 2023-07-25 04:59 | External Medical Summary ---
Author Name Unknown Address Unknown Organization K09:[facility] [place] [address] Laboratory Report Ordering Provider Test Date Status VARUNPHONG 05/27/2021 06:15:00 Final Observation Date Value Abnormality Reference (Units ) Status PT 05/27/2021 06:15:00 21.2 Above high normal 11 .5-14.6 (seconds) Final INR 05/27/2021 06:15:00 1.81 Above high normal 0. 84-1.14 Final Performing Location [facility] [place] [address]
--- OUTSIDE RECORDS SUMMARY | 2023-07-25 04:59 | External Medical Summary | Summary of Care ---
Author Name Unknown Organization [place] [address] Care Team Providers Care Gun Stock Checker Name Role Phone Roger Alexandra MD Primary Care Provider [phone] [phone] Encounter Details Date Type Department Care Team Description 05/23/2021 Documentation Psychiatry, [facility] [place] [address] Alisha Gandhi, DO [address] [place], [place] [id number] Allergies Active Allergy Reactions Severity Noted Date Comments Aspirin Unknown 12/12/2007 von Willebrand's disease Salicylates 03/01/2000 von Willebrand's disease documented as of this encounter (statuses as of 05/23/2021) Medications Medication Sig Dispensed Refills Start Date [...] Anxiety. 60 Tab 3 03/24/2021 Active Nystatin 453849 UNIT/GM External Powder (Nystop) 1 harriet, Powder, [...] 0 04/29/2021 Active Vitamin D3 1.25 MG (60838 UT) Oral CapsuleIndications: Vitamin D deficiency Take [...] as of this encounter (statuses as of 05/23/2021) Active Problems Problem Noted Date COPD, group [...] as of this encounter (statuses as of 05/23/2021) Resolved Problems Problem Noted Date Resolved Date [...] as of this encounter (statuses as of 05/23/2021) Immunizations Name Administration Dates Next Due H1N1 [...] of this encounter Progress Notes * Alisha Gandhi DO - 05/23/2021 10:01 AM EDT Spoke with Dr. Aguilar from inpatient as Kimberly is admitted for CHF exacerbation. He asked for any recs for her anxiey. Trazodone was d/c. I suggested increasing Buspar to 10 mg TID from BID documented in this encounter Plan of Treatment Upcoming Encounters Date Type Specialty Care Team Description 05/26/2021 Laboratory Laboratory Processing [place], [facility] Mobile Home Draw [address] [facility] [place] [id number] 05/27/2021 [facility] [address] [place] [address] [phone] 2021 Office Visit Family Medicine Roger Alexandra MD [address] [place] [address] [phone] 06/18/2021 Telemedicine Psychiatry Alisha Gandhi DO [address] [facility] [place] [address] Health Maintenance Due Date Last Done [...] exists Influenza Vaccine (FLU shot) (#1) 2021 08/21/2015, 08/01/2014, 08/09/2013, Additional history exists DIABETES SCREEN EVERY 3 YRS-AGE 45 AND ABOVE 10/17/2023 10/17/2020, 12/29/2019, 05/25/2016, Additional history exists Pneumococcal Vaccine: Pediatrics (0 [...] Documents on File Type Date Recorded Patient Street Vendor Expl 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
--- OUTSIDE RECORDS SUMMARY | 2023-07-25 04:59 | External Medical Summary | Summary of Care ---
Author Name Unknown Organization [place] [address] Care Team Providers Care Powder Carrier Name Role Phone Roger Alexandra MD Primary Care Provider +1 [phone] Encounter Details Date Type Department Care Team Description 05/26/2021 Orders Only Lab Mobile Phlebotomy [facility] [address] [place], [place] [id number] Stuart Heredia, DO [address] [place], [place] [phone] Routine medical exam* Allergies Active Allergy Reactions [...] Anxiety. 60 Tab 3 03/24/2021 Active Nystatin 847117 UNIT/GM External Powder (Nystop) 1 harriet, Powder, [...] 0 04/29/2021 Active Vitamin D3 1.25 MG (45379 UT) Oral CapsuleIndications: Vitamin D deficiency Take [...] Date Type Specialty Care Team Description 05/27/2021 [facility] [address] [place] [address] [phone] 06/18/2021 Telemedicine Psychiatry Alisha Gandhi, DO [address] [place] [address] Scheduled Orders Name Type Priority Associated Diagnoses Orde r Schedule BASIC METABOLIC PANEL Lab Routine Routine medical exam Expected: 05/26/2021, Expires: 05/26/2022 CBC Lab Routine Routine medical exam Expected: 05/26/2021, Expires: 05/26/2022 Health Maintenance Due Date Last Done Comments [...] Documents on File Type Date Recorded Patient Blindmaker Expl 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
--- OUTSIDE RECORDS SUMMARY | 2023-07-25 04:59 | External Medical Summary | Summary of Care ---
Author Name Unknown Organization [place] [address] Care Team Providers Care Toy Assembly Supervisor Name Role Phone Roger Alexandra MD Primary Care Provider +1 -[phone] Encounter Details Date Type Department Care Team Description 05/29/2021 Orders Only Lab Mobile Phlebotomy [facility] [address] [place], [place] [phone] Stuart Heredia, DO [address] [place], [place] [phone] Routine medical exam* Allergies Active Allergy Reactions [...] Anxiety. 60 Tab 3 03/24/2021 Active Nystatin 712036 UNIT/GM External Powder (Nystop) 1 harriet, Powder, [...] 0 04/29/2021 Active Vitamin D3 1.25 MG (45035 UT) Oral CapsuleIndications: Vitamin D deficiency Take [...] Care Team Description 05/29/2021 Laboratory Laboratory Processing [place], [facility] [address] [place] [address] Arrived 05/29/2021 Laboratory Laboratory Processing [facility] Draw [address] [place] [address] [phone] Arrived 05/29/2021 [facility] [address] [place] [address] [phone] 06/18/2021 Telemedicine Psychiatry Alisha Gandhi DO [address] [place] [address] Scheduled Orders Name Type Priority Associated Diagnoses Orde r Schedule PT INR Lab Routine Routine medical exam Expected: 05/29/2021, Expires: 2 Health Maintenance Due Date Last [...] Documents on File Type Date Recorded Patient Escalator Constructor Expl 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
--- OUTSIDE RECORDS SUMMARY | 2023-07-25 04:59 | External Medical Summary | Summary of Care ---
Author Name Unknown Organization [place] [address] Care Team Providers Care Ux Specialist Name Role Phone Roger Alexandra MD Primary Care Provider +1 -[phone] Encounter Details Date Type Department Care Team Description 06/03/2021 Orders Only Lab Mobile Phlebotomy [facility] [address] [place], [place] [phone] Stuart Heredia, DO [address] [place] [address] tank terminal gauger (current) use of anticoagulants* Allergies Active Allergy Reactions Severity Noted Date Comments Aspirin Unknown 12/12/2007 von Willebrand's disease Salicylates 03/01/2000 von Willebrand's disease documented as of this encounter (statuses as of 06/03/2021) Medications Medication Sig Dispensed Refills Start Date [...] Anxiety. 60 Tab 3 03/24/2021 Active Nystatin 288261 UNIT/GM External Powder (Nystop) 1 harriet, Powder, [...] 0 04/29/2021 Active Vitamin D3 1.25 MG (22923 UT) Oral CapsuleIndications: Vitamin D deficiency Take [...] as of this encounter (statuses as of 06/03/2021) Active Problems Problem Noted Date COPD, group [...] as of this encounter (statuses as of 06/03/2021) Resolved Problems Problem Noted Date Resolved Date [...] as of this encounter (statuses as of 06/03/2021) Immunizations Name Administration Dates Next Due H1N1 [...] Encounters Date Type Specialty Care Team Description 06/04/2021 Laboratory Laboratory Processing [place], [facility] [place] [address] [place] [address] 06/05/2021 [facility] [address] [place] [address] [phone] 06/18/2021 Telemedicine Psychiatry Alisha Gandhi, DO [address] [place] [address] Scheduled Orders Name Type Priority Associated Diagnoses Orde r Schedule PT INR Lab Routine group home (current) use of anticoagulants Expected: 06/04/2021, Expires: 06/03/2022 Health Maintenance Due Date Last Done Comments [...] as of this encounter Visit Diagnoses Diagnosis tank terminal gauger (current) use of anticoagulants- Primary Long-term (current) use of anticoagulants documented in this encounter Advance Directives Documents on File Type Date Recorded Patient Dental Equipment Installer And Servicer Expl 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
--- OUTSIDE RECORDS SUMMARY | 2023-07-25 05:00 | External Medical Summary ---
Author Name Unknown Address Unknown Organization K01:LABORATORY [facility] - [address] [place] [address] Laboratory Report Ordering Provider Test Date Status CINDYJALLOH 05/01/2021 10:11:00 Final Observation Date Value Abnormality Reference (Units ) Status 25-OH Vitamin D total 05/01/2021 10:11:00 9 Below low normal >19 (ng/mL) Final Performing Location LAB[facility]ORY [facility] - [address] [place] [address]
--- OUTSIDE RECORDS SUMMARY | 2023-07-25 05:00 | External Medical Summary ---
Author Name Unknown Address Unknown Organization [facility] [address] [place] [address] Laboratory Report Ordering Provider Test Date Status ANGELLA MARINELLI 05/01/2021 10:11:00 Final Observation Date Value Abnormality Reference (Units ) Status PT 05/01/2021 10:11:00 20.9 Above high normal 11 .5-14.6 (seconds) Final INR 05/01/2021 10:11:00 1.77 Above high normal 0. 84-1.14 Final Performing Location [facility] [place] [address] [place] [address]
--- OUTSIDE RECORDS SUMMARY | 2023-07-25 05:00 | External Medical Summary | Summary of Care ---
Author Name Unknown Organization [place] [address] Care Team Providers Care Supervisor Blasting Name Role Phone Roger Alexandra MD Primary Care Provider [phone] [phone] Encounter Details Date Type Department Care Team Description 05/22/2021 Orders Only Family Practice [facility] [address] [facility] [place] [address] Roger Alexandra MD [address] [facility] [place] [address] [phone] Allergies Active Allergy Reactions Severity Noted Date Comments Aspirin Unknown 12/12/2007 von Willebrand's disease Salicylates 03/01/2000 von Willebrand's disease documented as of this encounter (statuses as of 05/22/2021) Medications Medication Sig Dispensed Refills Start Date [...] Anxiety. 60 Tab 3 03/24/2021 Active Nystatin 766627 UNIT/GM External Powder (Nystop) 1 harriet, Powder, [...] 0 04/29/2021 Active Vitamin D3 1.25 MG (17315 UT) Oral CapsuleIndications: Vitamin D deficiency Take [...] as of this encounter (statuses as of 05/22/2021) Active Problems Problem Noted Date COPD, group [...] as of this encounter (statuses as of 05/22/2021) Resolved Problems Problem Noted Date Resolved Date [...] as of this encounter (statuses as of 05/22/2021) Immunizations Name Administration Dates Next Due H1N1 [...] Care Team Description 05/26/2021 Laboratory Laboratory Processing [facility] [place] Draw [address] [place] [address] 05/27/2021 [facility] [address] [place] [address] [phone] 06/18/2021 Telemedicine Psychiatry Alisha Gandhi DO [address] [place] [address] Health Maintenance Due Date Last [...] Associated Diagnosis Comments OUTSIDE LAB-CORONAVIRUS (COVID-19) Routine 05/20/2021 documented in this encounter Results * OUTSIDE LAB-CORONAVIRUS (COVID-19) (05/20/2021) [id number] LAB NEGATIVE NEGATIVE OUTSIDE LAB (SEE SCANNED REPORT) Specimen Narrative Performed At Performing Organization Address City/State/[facility] Co de Phone Number OUTSIDE LAB (SEE SCANNED REPORT) documented in this encounter Advance Directives Documents on File Type Date Recorded Patient Clerical Warehouse Worker Expl 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
--- OUTSIDE RECORDS SUMMARY | 2023-07-25 05:00 | External Medical Summary ---
Author Name Unknown Address Unknown Organization K01:LABORATORY [facility] [place] - [address] [place] [address] Laboratory Report Ordering Provider Test Date Status CINDYSHUBHAM 05/01/2021 10:11:00 Final Observation Date Value Abnormality Reference (Units ) Status Vitamin B12 05/01/2021 10:11:00 338 232-1,24 5 (pg/mL) Final Performing Location LABORATORY [facility] - [address] [place] [address]
--- OUTSIDE RECORDS SUMMARY | 2023-07-25 05:00 | External Medical Summary | Summary of Care ---
Author Name Unknown Organization [place] [address] Care Team Providers Care Fabricator Foam Rubber Name Role Phone Roger Alexandra MD Primary Care Provider [phone] [phone] Reason for Visit * Reason Comments Anxiety Depression Encounter Details Date Type Department Care Team Description 04/29/2021 Telemedicine Psychiatry, [facility] [address] [place], [place] [id number] Alisha Gandhi, DO [address] [place] [address] Major depressive disorder, recurrent episode, moderate (HCC)*; SIAM (generalized anxiety disorder); PTSD (post-traumatic stress disorder); Protein-calorie malnutrition, unspecified severity (HCC) ; Vitamin D deficiency, unspecified Allergies Active Allergy Reactions Severity Noted Date Comments Aspirin Unknown 12/12/2007 von Willebrand's disease Salicylates 03/01/2000 von Willebrand's disease documented as of this encounter (statuses as of 04/29/2021) Medications Medication Sig Dispensed Refills Start Date [...] for Wheezing. 20 mL 1 08/23/2020 Active Isosorbide Mononitrate ER 30 MG Oral Tablet Extended Release 24 Hour (Imdur) Take 1 Tab by mouth daily. 30 Tab 5 12/05/2020 Active Mirtazapine 45 MG Oral Tablet (Remeron) [...] for Anxiety. 60 Tab 3 03/24/2021 Active traMADol HCl 100 MG Oral TabletIndications :Chronic bilateral low back pain without sciatica Take 100 mg by mouth every 8 hours as needed for Pain, Moderate or Pain, Severe. 90 Tab 0 03/27/2021 Active Nystatin 656256 UNIT/GM External Powder (Nystop) 1 harriet, Powder, [...] paranoid thoughts). 60 Tab 2 04/21/2021 Active levoFLOXacin 750 MG Oral Tablet (Levaquin) Take 1 Tab by mouth daily for 10 days. until gone. 10 Tab 0 04/23/2021 1 Active guaiFENesin-Codei ne 100-10 MG/5ML Oral [...] for Anxiety. 90 Tab 0 04/29/2021 Active LORazepam 0.5 MG Oral Tablet (Ativan) Take 1 Tab by mouth 3 times a day as needed for Anxiety. 90 Tab 0 03/24/2021 1 Discontinue d(Refill) documented as of this encounter (statuses as of 04/29/2021) Active Problems Problem Noted Date PTSD (post-traumatic stress disorder) Grade I diastolic [...] 07/05/2007 Overview: ICD-10 update of inactive term COPD, severe 04/06/2007 SIMA (generalized anxiety disorder) 02/08 Irritable bowel syndrome with diarrhea 0 04/13/2001 documented as of this encounter (statuses as of 04/29/2021) Resolved Problems Problem Noted Date Resolved Date [...] 05/01/2011 Chest pain, non-cardiac 12/12/2007 12/29/19 20 Acute bronchitis, antibiotics not indicated 03/1606/27/2008 Atrial [...] as of this encounter (statuses as of 04/29/2021) Immunizations Name Administration Dates Next Due H1N1 [...] as of this encounter Progress Notes * Hiram Alisha Paty, DO - 04/29/2021 11:32 AM EDT After connecting through [employer], patient was verified with two unique identifiers. Patient (or authorized legal sales representative door to door) was then informed that this was a Telemedicine visit and being conducted confidentially over secure lines. Methods to assure confidentiality were taken. Patient acknowledged consent and understanding of privacy and security of the Telemedicine visit. The patient agreed to participate. PSYCHOTHERAPY & MEDICATION MANAGEMENT RETURN VISIT NOTE Psychiatry, [address] [address] 04/29/2021 Kimberly Mckeon CHIEF COMPLAINT: Insomnia INTERVAL HISTORY: Kimberly states that she is not sleeping well. She feels that her hair is fallingout. Kimberly has been feeling stressed. Her Aunt recently passed. She was prescribed an antibiotic by Dr. Alexandra for Bronchitis. Kimberly has a caregiver that comes Wednesday, Wednesday and Wednesday. Her grand daughter comes and Wednesday. She helps with anything that she needs. She has not been bathing or taking care of herhygiene. She last showered Wednesday. I strongly encouraged she work on her personal hygiene, whichshe agreed with. She has a wall taper, Alexander. I asked her to inquire with her wall taper about therapy services. She denies suicidal ideation/plan/intent. No HI/AVH. No paranoid ideations or delusions OBJECTIVE DATA: COLUMBIA-SUICIDE SEVERITY RATING SCALE Have [...] and reasons for living SIGECAPS: - Sleep: Very poor - Interest: apathetic - Guilt: No - Energy: decreased - Concentration: difficult - Appetite: decreased - Psychomotor Activity: very anxious and restless - Psychosis: No Anxiety: - Excessive Worry- yes No observed or reported side effects to current medications SUBSTANCE ABUSE:Unremarkable RELEVANT PAST PSYCHIATRIC, MEDICAL, FAMILY OR SOCIAL HX: No new changes CURRENT MEDS: Current Outpatient Medications Medication Sig Dispense Refill guaiFENesin-Codeine 100-10 MG/5ML Oral Syrup (Robitussin AC) Take 5 mL by mouth every 4 hours as needed for Cough. 120 mL 0 levoFLOXacin 750 MG Oral Tablet (Levaquin) Take 1 Tab by mouth daily for 10 days. until gone. 10 Tab 0 QUEtiapine Fumarate 25 MG Oral Tablet (SEROquel) Take 1 Tab by mouth 2 times a day as needed (Insomnia, high anxiety, paranoid thoughts). 60 Tab 2 Nystatin 647638 UNIT/GM External Powder (Nystop) 1 harriet, Powder, Topical twice daily, 1 EA, 0 Refill(s), Indication: Candidiasis of Skin, Route to Pharmacy Electronically, [facility] - [address], [address], 10/02/20 10:43:00 EST, Height/Length Dosing, cm, 116.3, 10/02/20 10:43:00 EST, Weight Dosing, kg15 g 1 traMADol HCl 100 MG Oral Tablet Take 100 mg by mouth every 8 hours as needed for Pain, Moderate or Pain, Severe. 90 Tab 0 hydrOXYzine HCl 50 MG Oral Tablet Take 1 Tab by mouth 3 times a day as needed for Anxiety. 60 Tab 3 LORazepam 0.5 MG Oral Tablet (Ativan) Take 1 Tab by mouth 3 times a day as needed for Anxiety. 90 Tab 0 Disposable Brief X-Large Attends X-Large Super [...] directed by anticoagulation pharmacist. 60 Tab 2 Mirtazapine 45 MG Oral Tablet (Remeron) Take 1 Tab by mouth at bedtime. 30 Tab 2 Isosorbide Mononitrate ER 30 MG Oral Tablet Extended Release 24 Hour (Imdur) Take 1 Tab by mouth daily. 30 Tab 5 Albuterol Sulfate (2.5 MG/3ML) 0.083% Inhalation Nebulization [...] mouth 4 times a day. 18g 1 fluticasone (FLOVENT HFA) 110 MCG/ACT inhaler Inhale 2 Puffs by mouth 2 times a day. 36 g 3 Cholestyramine Light (QUESTRAN LIGHT) 4 GM/DOSE POWD Take 1 Scoopful Dosing Unit by mouth 2 times aday. in 6oz of liquid . 210 g 3 Acetaminophen (TYLENOL) 325 MG CAPS Take by mouth. albuterol-ipratropium (DUONEB) 2.5-0.5 MG/3ML nebulizer solution Inhale 3 mL by mouth every 4 hoursas needed for Shortness of Breath or Wheezing. OXYGEN 4 L during the day as needed and at bedtime LABS: Results for KIMBERLY MCKEON ( ) as of 04/29/2021 11:36 Ref. Range 10/17/2020 15:40 PRO BNP Latest Ref Range: 0 - 299 pg/mL 337 (H) Sodium Latest Ref Range: 135 - 146 mmol/L 142 Potassium Latest Ref Range: 3.5 - 5.1 mmol/L 4.6 Chloride Latest Ref Range: 98 - 107 mmol/L 104 CO2 Latest Ref Range: 22 - 32 mmol/L 28 BUN Latest Ref Range: 6 - 20 mg/dL 10 Creatinine Latest Ref Range: 0.5 - 1.0 mg/dL 0.7 Estimated Glomerular Filtration Rate Latest Ref Range: >60 >60.0 Anion Gap Latest Ref Range: 7 - 15 mmol/L 10 Glucose Latest Ref Range: 70 - 120 mg/dL 83 Calcium Latest Ref Range: 8.4 - 10.2 mg/dL 9.0 CBC WITH WBC DIFFERENTIAL Unknown Rpt (A) WBC Latest Ref Range: 4.00 - 10.80 K/uL 7.25 RBC Latest Ref Range: 3.85 - 5.15 M/uL 3.94 HGB Latest Ref Range: 12.0 - 15.3 g/dL 12.2 HCT Latest Ref Range: 36.0 - 45.2 % 39.5 Plt Latest Ref Range: 140 - 400 K/uL 385 MENTAL STATUS EVALUATION: Appearance:age-appropriate and casually dressed [...] to examiner -intact Insight:fair Judgment:fair FORMULATION: Kimberly Mckeon is g31lgbu old female with presenting symptoms ofdepression, anxiety, [...] or Lexapro. Zoloft not helpful. Wellbutrin worsened anxiety and has been stopped. Stop Seroquel ASSESSMENT- DIAGNOSIS:Major depressive disorder recurrent episode moderate Generalized Anxiety Disorder PTSD Bereavement PLAN: - Can take Hydroxyzine 50 mg BID PRN for anxiety-- states that she has been using 3 times per day - Continue Buspar 10 mg BID for anxiety. - Can take Ativan 0.5 mgTIDPRN for. Discussed trying to not utilize this over Hydroxyzine anduse this just as emergency rescue -ContinueRemeron 45 mgQHS to help with insomnia, depression and low appetite. - Trial of Trazodone 50 mg PRN for insomnia - Stop Seroquel -Strongly recommend therapy-therapy referral placed - I have reviewed the patients controlled substance dispensing history in the Prescription Drug Monitoring Program in compliance with the [facility] regulations before prescribing a controlled substance. - Crisis planning-- Kimberly Mckeon has been provided with Psychiatry emergency telephone numbers. Discussed risks, expected benefits, and potential adverse [...] clinic in the timeframe described above. Return 8 weeks Risk/Benefits of Medication Discussed/Verbalized Understanding yes Time Spent on Visit: 30 minutes - including preparing to see the patient, reviewing history, performing evaluation, counseling/educating patient, ordering medications/tests, documenting clinical information. Please note >17 minutes of counseling time over and above medication management was spent with patient discussing self care and providing supportive therapy Alisha Gandhi D.O. Psychiatry Attending 04/29/2021 documented in this encounter Plan of Treatment Upcoming Encounters Date Type Specialty Care Team Description 05/01/2021 Laboratory [place] [facility] [place] Draw [address] [place] [address] [phone] 05/02/2021 [facility] [address] [address] [place] [address] [phone] 06/18/2021 Telemedicine Psychiatry Alisha Gandhi DO [address] [place] [address] Scheduled Orders Name Type Priority Associated Diagnoses Orde r Schedule TSH WITH FREE T4 IF INDICATED Lab Routine Major depressive disorder, recurrent episode, moderate (HCC) SIMA (generalized anxiety disorder) PTSD (post-traumatic stress disorder) Expected: 04/29/2021, Expires: 04/29/2022 FOLIC ACID Lab Routine Protein-calorie malnutrition, unspecified severity (HCC) Major depressive disorder, recurrent episode, moderate (HCC) SIMA (generalized anxiety disorder) PTSD (post-traumatic stress disorder) Expected: 04/29/2021, Expires: 04/29/2022 VITAMIN B12 Lab Routine Protein-calorie malnutrition, unspecified severity (HCC) Major depressive disorder, recurrent episode, moderate (HCC) SIMA (generalized anxiety disorder) PTSD (post-traumatic stress disorder) Expected: 04/29/2021, Expires: 04/29/2022 25-HYDROXY VITAMIN D Lab Routine Vitamin D deficiency, unspecified Major depressive disorder, recurrent episode, moderate (HCC) SIMA (generalized anxiety disorder) PTSD (post-traumatic stress disorder) Expected: 04/29/2021, Expires: 04/29/2022 Health Maintenance Due Date Last Done Comments COVID-19 Vaccine (1) 1972 Zoster Vaccines (1 of 2) 2010 *DEPRESSION SCREENING,ANNUAL FOR PTS 12 AND OVER 04/11/2015 BREAST CANCER SCREENING DISCUSSION YEARLY AGES 40-75 10/28/2016 10/28/2015, 04/27/2014, 05/12/2013, Additional history exists DTaP,Tdap,and Td Vaccines (2 - Td) 06/27/2018 06/27/2008 *DISCUSS TOBACCO CESSATION (REFER TO SMARTSET #3291) 01/04/2020 *ADVANCE DIRECTIVE NOT ON FILE 03/08/2020 LIPID SCREEN EVERY 5 YRS-WOMEN AGE 45-75 09/25/2020 09/25/2015, 02/14/2015, 05/01/2011, Additional history exists Influenza Vaccine (FLU shot) (Season Ended) 2021 08/21/2015, 08/01/2014, 08/09/2013, Additional history exists [...] Primary Major depressive disorder, recurrent episode, moderate SIMA (generalized anxiety disorder) Generalized anxiety disorder PTSD (post-traumatic stress disorder) Posttraumatic stress disorder Protein-calorie malnutrition, unspecified severity (HCC) Vitamin D deficiency, unspecified documented in this encounter Advance Directives Documents on File Type Date Recorded Patient Farm Management Adviser Expl 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
--- OUTSIDE RECORDS SUMMARY | 2023-07-25 05:00 | External Medical Summary | Summary of Care ---
Author Name Unknown Organization [place] [address] Care Team Providers Care Artillery Specialist Name Role Phone Roger Alexandra MD Primary Care Provider [phone] Encounter Details Date Type Department Care Team Description 05/22/2021 Orders Only Family Practice [facility] [address] [facility] [place] [address] Roger Alexandra MD 132 [facility] [place] [address] [phone] Allergies Active Allergy Reactions Severity Noted Date [...] Anxiety. 60 Tab 3 03/24/2021 Active Nystatin 090067 UNIT/GM External Powder (Nystop) 1 harriet, Powder, [...] 0 04/29/2021 Active Vitamin D3 1.25 MG (57318 UT) Oral CapsuleIndications: Vitamin D deficiency Take [...] Care Team Description 05/26/2021 Laboratory Laboratory Processing [facility] [place] Mobile Home Draw [address] [place] [address] 05/27/2021 [facility] [address] [place] [address] [phone] 06/18/2021 Telemedicine Psychiatry Alisha Gandih DO [address] [place] [address] Health Maintenance Due Date Last [...] on File Type Date Recorded Patient Chief Wellness Officer Expl 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
--- OUTSIDE RECORDS SUMMARY | 2023-07-25 05:00 | External Medical Summary | Summary of Care ---
Author Name Unknown Organization [place] [address] Care Team Providers Care Dehorner Name Role Phone Roger Alexandra MD Primary Care Provider [phone] Reason for Visit * Reason Onset Date Comments Test Results 05/02/2021 Encounter Details Date Type Department Care Team Description 05/02/2021 Telephone [facility], [place] [address] [place] [address] Alisha Gandhi, [address] [place] [address] Test Results Allergies Active Allergy Reactions Severity Noted Date Comments Aspirin Unknown 12/12/2007 von Willebrand's disease Salicylates 03/01/2000 von Willebrand's disease documented as of this encounter (statuses as of 05/02/2021) Medications Medication Sig Dispensed Refills Start Date End Date Status OXYGEN 4 L during the day as needed and at bedtime 0 02/14/2015 Active albuterol-ipratrop ium (DUONEB) 2.5-0.5 MG/3ML nebulizer solution Inhale 3 [...] 03/05/2020 Active fluticasone (FLOVENT HFA) 110 MCG/ACT inhalerIndications :Bronchitis, complicated Inhale 2 Puffs by mouth 2 [...] Anxiety. 60 Tab 3 03/24/2021 Active Nystatin 555086 UNIT/GM External Powder (Nystop) 1 harriet, Powder, [...] days. until gone. 10 Tab 0 04/23/2021 05/03/2021 Active guaiFENesin-Codein e 100-10 MG/5ML Oral Syrup (Robitussin AC) Take 5 mL by mouth every 4 hours as needed for Cough. 120 mL 0 04/23/2021 Active traMADol HCl 100 MG Oral TabletIndications: [...] 0 04/29/2021 Active Vitamin D3 1.25 MG (62444 UT) Oral CapsuleIndications :Vitamin D deficiency Take 1 Cap by mouth once a week. 4 Cap 3 05/02/2021 Active documented as of this encounter (statuses as of 05/02/2021) Active Problems Problem Noted Date COPD, group [...] as of this encounter (statuses as of 05/02/2021) Resolved Problems Problem Noted Date Resolved Date [...] as of this encounter (statuses as of 05/02/2021) Immunizations Name Administration Dates Next Due H1N1 [...] Telephone Encounter - Matt Mathew DO - 05/02/2021 5:42 PM EDT Spoke with patient. Lab studies reviewed. Patient following with anticoagulation clinic for Coumadin therapy. Patient notified by anticoagulation clinic of low INR. Patient noted to be noncompliant with Coumadin. Patient advised regarding compliance with medication. Patient scheduled for repeat INR level in 1 week. Lab studies showed low vitamin-D level. Remainder of lab studies unremarkable. Prescription vitamin-D supplementation sent to pharmacy * Telephone Encounter - Ashli Williamson LPN - 05/02/2021 3:45 PM EDT Please check lab results * Telephone Encounter - Irma Leger OSA - 05/02/2021 3:23 PM EDT Patient calling in to check on the status of previous message. Please advise: [phone] * Telephone Encounter - Ledy Dejesus OSA - 05/02/2021 9:03 AM EDT Who is Requesting Test Results: Patient Primary Care Provider : Roger Stuart Tests Results Requested : Labs Date of Test : 05/01/2021 Location of Test: [facility] mobile Ordering Provider: Alisha Morales Callback Number: [phone] Patient has been made aware that the [...] Encounters Date Type Specialty Care Team Description 05/08/2021 Laboratory Laboratory Processing [facility] [place] [facility] Mobile Home Draw [address] [place] [address] 05/09/2021 [facility] [address] [address] [place] [address] [phone] 06/18/2021 Telemedicine Psychiatry Alisha Gandhi DO [address] [place] [address] Health Maintenance Due Date Last [...] as of this encounter Visit Diagnoses Diagnosis Vitamin D deficiency- Primary Unspecified vitamin D deficiency documented in this encounter Advance Directives Documents on File Type Date Recorded Patient Metal Moulder Expl 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
--- OUTSIDE RECORDS SUMMARY | 2023-07-25 05:00 | External Medical Summary | Summary of Care ---
Author Name Unknown Organization [place] [address] Care Team Providers Care Solar Mechanical Engineer Name Role Phone Roger Alexandra MD Primary Care Provider [phone] Encounter Details Date Type Department Care Team Description 03/24/2021 Telephone Psychiatry, [place] [address] [place] [address] Services, [facility] [address] [place] [address] Allergies Active Allergy Reactions Severity Noted Date Comments Aspirin Unknown 12/12/2007 von Willebrand's disease Salicylates 03/01/2000 von Willebrand's disease documented as of this encounter (statuses as of 05/08/2021) Medications Medication Sig Dispensed Refills Start Date [...] Absorb Underwear 32 Each 2 03/18/2021 Active documented as of this encounter (statuses as of 05/08/2021) Active Problems Problem Noted Date COPD, group [...] as of this encounter (statuses as of 05/08/2021) Resolved Problems Problem Noted Date Resolved Date [...] as of this encounter (statuses as of 05/08/2021) Immunizations Name Administration Dates Next Due H1N1 [...] encounter Miscellaneous Notes * Telephone Encounter - Sylvia Lux OSA - 03/24/2021 9:12 AM EDT Medication: LORazepam 0.5 MG Oral Tablet (Ativan) Last Appointment: 03/05/2021 Next Appointment/Wait list: 04/29/2021 Wilfrid Moss called into the scheduling line requesting a refill on the medication listed. Thank you! documented in this encounter Plan of Treatment Upcoming Encounters Date Type Specialty Care Team Description 05/09/2021 [facility] [address] [place] [address] [phone] 06/18/2021 Telemedicine Psychiatry Alisha Gandhi, DO [address] [facility] [address] Health Maintenance Due Date Last [...] Documents on File Type Date Recorded Patient Cylinder Block Hole Reliner Expl 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
--- OUTSIDE RECORDS SUMMARY | 2023-07-25 05:00 | External Medical Summary | Summary of Care ---
Author Name Unknown Organization [place] [address] Care Team Providers Care Records Management Director Name Role Phone Jeevan Mclean MD Primary Care Provider [phone] [phone] Reason for Visit * Reason Onset Date Comments Medication Refill 04/29/2021 Encounter Details Date Type Department Care Team Description 04/29/2021 Refill Family Practice [facility] [address] [place] [id number] Jeevan Mclean MD [address] [facility] [place] [address] [phone] Chronic bilateral low back pain without sciatica Allergies Active Allergy Reactions Severity Noted Date Comments Aspirin Unknown 12/12/2007 von Willebrand's disease Salicylates 03/01/2000 von Willebrand's disease documented as of this encounter (statuses as of 04/30/2021) Medications Medication Sig Dispensed Refills Start Date [...] Anxiety. 60 Tab 3 03/24/2021 Active Nystatin 090426 UNIT/GM External Powder (Nystop) 1 harriet, Powder, [...] Pain, Severe. 90 Tab 0 04/30/2021 Active traMADol HCl 100 MG Oral TabletIndications :Chronic bilateral low back pain without sciatica Take 100 mg by mouth every 8 hours as needed for Pain, Moderate or Pain, Severe. 90 Tab 0 03/27/2021 1 Discontinue d(Refill) documented as of this encounter (statuses as of 04/30/2021) Active Problems Problem Noted Date PTSD (post-traumatic [...] as of this encounter (statuses as of 04/30/2021) Resolved Problems Problem Noted Date Resolved Date [...] septal aneurysm 02/04/2006 9 long term care pharmacist current use of anticoagulant therapy 0 06/01/2005 [...] as of this encounter (statuses as of 04/30/2021) Immunizations Name Administration Dates Next Due H1N1 [...] Telephone Encounter - Jeevan Mclean MD - 04/30/2021 3:16 PM EDT Signed Prescriptions: Disp Refills traMADol HCl 100 MG Oral Tablet 90 Tab 0 Sig: Take 100 mg by mouth every 8 hours as needed for Pain, Moderate or Pain, Severe. Authorizing Provider: JEEVAN MCLEAN * Telephone Encounter - Shaye [facility] - 04/30/2021 2:47 PM EDT Pending Prescriptions: Disp Refills traMADol HCl 100 MG Oral Tablet 90 Tab 0 Sig: Take 100 mg by mouth every 8 hours as needed for Pain, Moderate or Pain, Severe. * Telephone Encounter - Shaye Anderson [facility] - 04/30/2021 2:46 PM EDT I have reviewed the patients controlled substance dispensing history in the Prescription Drug Monitoring Program in compliance with the [facility] regulations before prescribing a controlled substance. PDMP checked on 04/30/2021. Pending Prescriptions: Disp Refills traMADol HCl 100 MG Oral Tablet 90 Tab 0 Sig: Take 100 mg by mouth every 8 hours as needed for Pain, Moderate or Pain, Severe. Last Office/Telemedicine Visit: 04/23/2021 Next Office Visit: No Future Appointments Date medication was last filled: 03/28/21 Date medication is due for refill: 04/26/21 [facility]: [id number] [place] [address] [address] [facility] Is this request for a controlled [...] Review. Please approve if appropriate. Thank you, Shaye Anderson PharmD Clinical Pharmacist TelePharmacy 04/30/21 2:46 PM * Telephone Encounter - Anitra Castellanos PHARM Tech - 04/30/2021 12:09 PM EDT Pt calling to check the status of medication refill of tramadol. Thank you, Anitra Castellanos T Granite Polisher Machine [facility] 04/30/2021, 12:09 PM * Telephone Encounter - Solange Renee PHARM Tech - 04/29/2021 9:56 AM EDT Pending Prescriptions: Disp Refills traMADol HCl 100 MG Oral Tablet 90 Tab 0 Sig: Take 100 mg by mouth every 8 hours as needed for Pain, Moderate or Pain, Severe. Last Office/Telemedicine Visit: 04/23/2021 Next Office Visit: No Future Appointments If no future appointments scheduled, and last appointment is greater than a year ago, please schedule patient for a follow-up appointment Last date the medication was ordered: 03-27-21 Pharmacy: [facility] [address] Is this request for a controlled [...] Lab Results Component Value Date/Time CREAT 0.7 10/17/2020 03:40 PM POTASSIUM 4.6 10/17/2020 03:40 PM TSH 0.66 12/29/2019 10:22 AM LDLCALC 99 09/25/2015 LDLCALC 123 05/01/2011 11:39 AM LDLDIRECT 138 (H) 02/14/2015 09:27 AM ALT 6 (L) 12/29/2019 10:22 AM HGBA1C 5.7 04/19/2014 12:08 PM documented in this encounter Plan of Treatment Upcoming Encounters Date Type Specialty Care Team Description 05/01/2021 Laboratory Laboratory Processing [facility] Mobile Home Draw [address] [place] [address] 05/02/2021 [facility] [address] [place] [address] [phone] 06/18/2021 Telemedicine Psychiatry Alisha Gandhi DO [address] [place] [address] Health Maintenance Due Date Last [...] on File Type Date Recorded Patient Family Lawyer Expl 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
--- OUTSIDE RECORDS SUMMARY | 2023-07-25 05:00 | External Medical Summary ---
Author Name Unknown Address Unknown Organization K01:LABORATORY [facility] [place] - [facility] [address] [facility] [address] [facility] [address] Laboratory Report Ordering Provider Test Date Status DEWEY WHITELIN 05/01/2021 10:11:00 Final Observation Date Value Abnormality Reference (Units ) Status TSH 05/01/2021 10:11:00 1.68 0.27-4.20 (uIU/mL) Final Performing Location LABORATORY [facility] [place] - [address] [facility] [address]
--- OUTSIDE RECORDS SUMMARY | 2023-07-25 05:00 | External Medical Summary | Summary of Care ---
Author Name Unknown Organization [place] [address] Care Team Providers Care Clothing Cutter Name Role Phone Roger Alexandra MD Primary Care Provider [phone] [phone] Encounter Details Date Type Department Care Team Description 05/05/2021 Telephone Psychiatry, [facility] [place] [id number] Alisha Gandhi, DO [address] [facility] [address] [place], [place] [id number] Allergies Active Allergy Reactions Severity Noted Date Comments Aspirin Unknown 12/12/2007 von Willebrand's disease Salicylates 03/01/2000 von Willebrand's disease documented as of this encounter (statuses as of 05/05/2021) Medications Medication Sig Dispensed Refills Start Date [...] Anxiety. 60 Tab 3 03/24/2021 Active Nystatin 796846 UNIT/GM External Powder (Nystop) 1 harriet, Powder, [...] 0 04/29/2021 Active Vitamin D3 1.25 MG (95782 UT) Oral CapsuleIndications: Vitamin D deficiency Take 1 Cap by mouth once a week. 4 Cap 3 05/02/2021 Active Vitamin D (Cholecalciferol) 25 MCG (1000 UT) Oral Capsule Take 1 Cap by mouth daily. 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
--- OUTSIDE RECORDS SUMMARY | 2023-07-25 05:00 | External Medical Summary | Summary of Care ---
Author Name Unknown Organization [facility] Address [place] [address] Care Team Providers Care Steam Locomotive Firer/Fireman Name Role Phone Roger Alexandra MD Primary Care Provider [phone] Encounter Details Date Type Department Care Team Description 05/20/2021 Scan Encounter Unspecified Department <No scans attached> Allergies Active Allergy Reactions Severity Noted Date Comments Aspirin Unknown 12/12/2007 von Willebrand's disease Salicylates 03/01/2000 von Willebrand's disease documented as of this encounter (statuses as of 05/21/2021) Medications Medication Sig Dispensed Refills Start Date [...] Anxiety. 60 Tab 3 03/24/2021 Active Nystatin 325786 UNIT/GM External Powder (Nystop) 1 harriet, Powder, [...] 0 04/29/2021 Active Vitamin D3 1.25 MG (28977 UT) Oral CapsuleIndications: Vitamin D deficiency Take [...] as of this encounter (statuses as of 05/21/2021) Active Problems Problem Noted Date COPD, group [...] as of this encounter (statuses as of 05/21/2021) Resolved Problems Problem Noted Date Resolved Date [...] as of this encounter (statuses as of 05/21/2021) Immunizations Name Administration Dates Next Due H1N1 [...] Encounters Date Type Specialty Care Team Description 05/22/2021 [facility] [address] [facility] [place] [address] [phone] 06/18/2021 Telemedicine Psychiatry Alisha Gandhi, DO [address] [facility] [place] [address] Health Maintenance Due Date [...] Documents on File Type Date Recorded Patient Bioinformatics Specialist Expl 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
--- OUTSIDE RECORDS SUMMARY | 2023-07-25 05:00 | External Medical Summary ---
Author Name Unknown Address Unknown Organization K01:LABORATORY [facility] [place] - [address] [place] [address] Laboratory Report Ordering Provider Test Date Status CINDYSHUBHAM 05/01/2021 10:11:00 Final Observation Date Value Abnormality Reference (Units ) Status Folic Acid 05/01/2021 10:11:00 5.3 >4.5 (ng/ mL) Final Performing Location LABORATORY [facility] - [address] [place] [address]
--- OUTSIDE RECORDS SUMMARY | 2023-07-25 05:00 | External Medical Summary | Summary of Care ---
Author Name Unknown Organization [place] [address] Care Team Providers Care Mixed Livestock Farmer Name Role Phone Jeevan Mclean MD Primary Care Provider [phone] [phone] Reason for Visit * Reason Comments eRx-Medication Refill Encounter Details Date Type Department Care Team Description 05/17/2021 Refill Family Practice [facility] [address] [place] [id number] Jeevan Mclean MD 132 [facility] [place] [address] [phone] Allergies Active Allergy Reactions Severity Noted Date Comments Aspirin Unknown 12/12/2007 von Willebrand's disease Salicylates 03/01/2000 von Willebrand's disease documented as of this encounter (statuses as of 05/20/2021) Medications Medication Sig Dispensed Refills Start Date End Date Status OXYGEN 4 L during the day as needed and at bedtime 0 5 Active albuterol-ipratro pium (DUONEB) 2.5-0.5 MG/3ML nebulizer solution Inhale 3 mL by mouth every 4 hours as needed for Shortness of Breath or Wheezing. 0 5 Active Acetaminophen (TYLENOL) 325 MG CAPS Take by mouth. 0 Active Cholestyramine Light (QUESTRAN LIGHT) 4 GM/DOSE POWDIndications:C olitis Take 1 Scoopful Dosing Unit by mouth 2 times a day. in 6oz of liquid . 210 g 3 0 Active fluticasone (FLOVENT HFA) 110 MCG/ACT inhalerIndication s:Bronchitis, complicated Inhale 2 Puffs by mouth 2 times a day. 36 g 3 0 Active Albuterol Sulfate (PROAIR [...] for Wheezing. 20 mL 1 0 Active Mirtazapine 45 MG Oral Tablet (Remeron) Take 1 Tab by mouth at bedtime. 30 Tab 2 1 Active Warfarin Sodium 10 MG Oral Tablet [...] Anxiety. 60 Tab 3 1 Active Nystatin 872793 UNIT/GM External Powder (Nystop) 1 harriet, Powder, Topical twice daily, 1 EA, 0 Refill(s), Indication: Candidiasis of Skin, Route to Pharmacy Electronically, [facility] [address], [address], 10/02/20 10:43:00 EST, Height/Length Dosing, cm, 116.3, 10/02/20 10:43:00 EST, Weight Dosing, kg 15 g 1 1 Active QUEtiapine Fumarate 25 MG Oral Tablet (SEROquel) Take 1 Tab by mouth 2 times a day as needed (Insomnia, high anxiety, paranoid thoughts). 60 Tab 2 1 Active guaiFENesin-Codei ne 100-10 MG/5ML Oral [...] at bedtime. 30 Tab 2 1 Active LORazepam 0.5 MG Oral Tablet (Ativan) Take 1 Tab by mouth 3 times a day as needed for Anxiety. 90 Tab 0 1 Active Vitamin D3 1.25 MG (20776 UT) Oral CapsuleIndication s:Vitamin D deficiency Take 1 Cap by mouth once a week. 4 Cap 3 1 Active Vitamin D (Cholecalciferol) 25 MCG (1000 UT) Oral Capsule Take 1 Cap by mouth daily. 30 Cap 5 1 Active Isosorbide Mononitrate ER 30 MG Oral Tablet Extended Release 24 Hour (Imdur) take 1 tablet by mouth daily 30 Tab 5 1 Active Isosorbide Mononitrate ER 30 MG Oral Tablet Extended Release 24 Hour (Imdur) Take 1 Tab by mouth daily. 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 0 [...] as of this encounter (statuses as of 05/20/2021) Immunizations Name Administration Dates Next Due H1N1 [...] Telephone Encounter - Jeevan Mclean MD - 05/20/2021 7:37 AM EDT Signed Prescriptions: Disp Refills Isosorbide Mononitrate ER 30 MG Oral Table*30 Tab 5 Sig: take 1 tablet by mouth daily Authorizing Provider: EJEVAN MCLEAN * Telephone Encounter - Ewa Chu RP - 05/20/2021 6:43 AM EDT Pending Prescriptions: Disp Refills Isosorbide Mononitrate ER 30 MG Oral Table*30 Tab 5 Sig: take 1 tablet by mouth daily * Telephone Encounter - Ewa Chu RPh - 05/20/2021 6:43 AM EDT Refill pharmacists currently not authorized to approve refills for this class of medication per refill protocol. Please approve if appropriate. Thank You, Ewa Chu [facility]/20/2021, 6:43 AM documented in this encounter Plan of Treatment Upcoming Encounters Date Type Specialty Care Team Description 05/21/2021 Laboratory Laboratory Processing [facility] [place], [facility] Mobile Home Draw [address] [place] [address] 05/22/2021 Counts Include [address] [place] [address] [address] [place] [address] [phone] 06/18/2021 Telemedicine Psychiatry Alisha Gandhi, [address] [place] [address] Health Maintenance Due Date Last [...] File Type Date Recorded Patient Safety And Security Officer Expl 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
--- OUTSIDE RECORDS SUMMARY | 2023-07-25 05:00 | External Medical Summary | Summary of Care ---
Author Name Unknown Organization [facility] Address [place] [address] Care Team Providers Care Corporate Learning Consultant Name Role Phone Roger Alexandra MD Primary Care Provider [phone] [phone] Encounter Details Date Type Department Care Team [...] Anxiety. 60 Tab 3 03/24/2021 Active Nystatin 122058 UNIT/GM External Powder (Nystop) 1 harriet, Powder, [...] 0 04/29/2021 Active Vitamin D3 1.25 MG (08768 UT) Oral CapsuleIndications: Vitamin D deficiency Take [...] Date Type Specialty Care Team Description 05/27/2021 [facility] [address] [facility] [place] [address] [phone] 06/18/2021 Telemedicine Psychiatry Alisha Gandhi, DO [address] [facility] [place] [...] Documents on File Type Date Recorded Patient Sports Marketing Coordinator Expl 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
--- OUTSIDE RECORDS SUMMARY | 2023-07-25 05:00 | External Medical Summary | Summary of Care ---
Author Name Unknown Organization [facility] Address [place] [address] Care Team Providers Care Mid Level Clinician Name Role Phone Roger Alexandra MD Primary Care Provider [phone] Reason for Visit * Reason Comments Dosage Adjustment Via Phone (anticoag Cl inic) Encounter Details Date Type Department Care Team Description 05/02/2021 Anticoagulation Pharmacy Call Center [address] [facility] [place] [address] Telepharmacy, [facility] [address] [facility] [address] [phone] [facility] current use of anticoagulant therapy* Allergies Active [...] Anxiety. 60 Tab 3 03/24/2021 Active Nystatin 553396 UNIT/GM External Powder (Nystop) 1 harriet, Powder, Topical twice daily, 1 EA, 0 Refill(s), Indication: Candidiasis of Skin, Route to Pharmacy Electronically, [facility] - [address], [address], 11/18/20 10:43:00 EST, Height/Length Dosing, cm, 116.3, 10/02/20 [...] for Anxiety. 90 Tab 0 04/29/2021 Active documented as of this encounter (statuses [...] Notes * Nissa Dc PHARM Tech - 05/02/2021 8:01 AM EDT Contacts Type Contact Phone 05/02/2021 07:59 AM EDT Phone (Outgoing) Kimberly Kendall (Self) [phone] (M) Patient Findings Negatives: Signs/symptoms of thrombosis, [...] noted by Pharmacist: Yes DANIEL Sheffield Tech 05/02/2021, 8:01 AM * Kim Mercado [facility] - 05/02/2021 7:29 AM EDT Images from the original note were not included. Coumadin Clinic (region specific) Current Warfarin Dose As of 05/02/2021 Warfarin maintenance plan: 10 mg (10 mg x 1) every day INR Result As of 05/02/2021 INR goal: 2.0-3.0 INR used for dosin.77 (05/01/2021) Warfarin Plan As of 05/02/2021 Full warfarin instructions: 05/02: 20 mg; Otherwise 10 mg every day Next INR check: 05/08/2021 Repeat PT/INR in 1 week(s) Weekly dose: not changed- dose increased at last visit, note non-compliance Additional Dosing Information: Description GML Tech to contact patient with dose instructions as noted. Kim Mercado RPh 05/02/2021, 7:31 AM documented in this encounter Plan of Treatment Upcoming Encounters Date Type Specialty Care Team Description 05/08/2021 Laboratory Laboratory Processing [facility] [place], [facility] Mobile Home Draw [address] [place] [address] 06/18/2021 Telemedicine Psychiatry Alisha Gandhi DO [address] [place] [address] Health Maintenance Due Date Last [...] Documents on File Type Date Recorded Patient Defensive Fire Control Systems Operator Expl 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
--- OUTSIDE RECORDS SUMMARY | 2023-07-25 05:00 | External Medical Summary | Summary of Care ---
Author Name Unknown Organization [facility] Address [place] [address] Care Team Providers Care Business Agent Name Role Phone Roger Alexandra MD Primary Care Provider [phone] Reason for Visit * Reason Comments Dosage Adjustment Via Phone (anticoag Cl inic) Encounter Details Date Type Department Care Team Description 04/25/2021 Anticoagulation Pharmacy Call Center [address] [facility] [place] [address] Telepharmacy, [facility] [address] [facility] [address] [phone] correction current use of anticoagulant therapy* Allergies Active Allergy Reactions Severity Noted Date Comments Aspirin Unknown 12/12/2007 von Willebrand's disease Salicylates 03/01/2000 von Willebrand's disease documented as of this encounter (statuses as of 04/25/2021) Medications Medication Sig Dispensed Refills Start Date [...] Absorb Underwear 32 Each 2 03/18/2021 Active LORazepam 0.5 MG Oral Tablet (Ativan) Take 1 Tab by mouth 3 times a day as needed for Anxiety. 90 Tab 0 03/24/2021 Active hydrOXYzine HCl 50 MG Oral Tablet Take 1 Tab by mouth 3 times a day as needed for Anxiety. 60 Tab 3 03/24/2021 Active traMADol HCl 100 MG Oral TabletIndications: Chronic bilateral low back pain without sciatica Take 100 mg by mouth every 8 hours as needed for Pain, Moderate or Pain, Severe. 90 Tab 0 03/27/2021 Active Nystatin 503811 UNIT/GM External Powder (Nystop) 1 harriet, Powder, [...] for Cough. 120 mL 0 04/23/2021 Active documented as of this encounter (statuses as of 04/25/2021) Active Problems Problem Noted Date PTSD (post-traumatic [...] as of this encounter (statuses as of 04/25/2021) Resolved Problems Problem Noted Date Resolved Date [...] as of this encounter (statuses as of 04/25/2021) Immunizations Name Administration Dates Next Due H1N1 [...] Progress Notes * Vignesh Patel RPh - 04/25/2021 1:53 PM EDT Spoke to Kimberly, explained what her low INR meant and why it is important to be consistent with her coumadin dosing. She states she tries to be consistent but feels the dosing is sometimes confusing, she also admits to missing about 3 days last week but is unable to tell me when they were. Unfortunately it is difficult to ascertain a weekly dose for the patient due to repeat non- compliance. In an effort to make her dosing less confusing I instructed Kimbelry to take the bolus as directed thento take 10mg of coumadin every day and we will recheck in 1 week to ensure her INR is not supratherapeutic after attempting to take a consistent dose. Kimberly is aware to call us with any bruising/bleeding or any changes in medication diet or health. Thanks, Vignesh Patel [facility] Staff Pharmacist Telepharmacy 04/25/2021,2:01 PM * Nissa Dc, anodizing line operator - 04/25/2021 9:55 AM EDT Contacts Type Contact Phone 04/25/2021 09:50 AM EDT Phone (Outgoing) Kimberly Kendall Abhilash (Self) [phone] (M) Patient Findings Positives: Missed doses (missed 3 days of Coumadin), Change in medications (taking Levaquin-see comments) Comments: Pt states she "always has diarrhea", but states not increase since starting ABX. Advised to call if severe NVD >24h while taking ABX. Pt states she doesn't feel well, could not verify dose and hung up. Please call pt. Advised patient to contact Anticoagulation Clinic if any unusual bruising or bleeding, recent illness, changes in medication, or questions/concerns. PT/INR results, Coumadin dose instructions, and next PT/INR date communicated as noted by Pharmacist: No DANIEL Sheffield Tech 04/25/2021, 9:55 AM * Vignesh Patel RPh - 04/25/2021 9:28 AM EDT Images from the original note were not included. Coumadin Clinic (region specific) Current Warfarin Dose As of 04/25/2021 Warfarin maintenance plan: 5 mg (10 mg x 0.5) every Wed; 10 mg (10 mg x 1) all other days INR Result As of 04/25/2021 INR goal: 2.0-3.0 INR used for dosin.02 (04/24/2021) Warfarin Plan As of 04/25/2021 Full warfarin instructions: 04/25: 20 mg; 04/26: 15 mg; Otherwise 10 mg every day Next INR check: 05/01/2021 Please verify dose and directions with patient, Missed doses? Provided substantial bolus last week with no movement in INR to speak of. Repeat PT/INR in 1 week(s) Weekly dose: increased Additional Dosing Information: Description GML Tech to contact patient with dose instructions as noted. Vignesh Patel RPh 04/25/2021, 9:29 AM documented in this encounter Plan of Treatment Upcoming Encounters Date Type Specialty Care Team Description 04/29/2021 Telemedicine Psychiatry Alisha Gandhi, DO [address] [facility] [place] [address] [phone] 05/02/2021 [facility] 58 60 [facility] [place] [address] [phone] Health Maintenance Due Date Last Done Comments [...] as of this encounter Visit Diagnoses Diagnosis correction current use of anticoagulant therapy- Primary documented in this encounter Advance Directives Documents on File Type Date Recorded Patient Financial Sales Advisor Expl 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
--- OUTSIDE RECORDS SUMMARY | 2023-07-25 05:01 | External Medical Summary | Summary of Care ---
Author Name Unknown Organization [place] [address] Care Team Providers Care Editor Publications Name Role Phone Jeevan Mclean MD Primary Care Provider [phone] Reason for Visit * Reason Onset Date Comments Letter Requests 03/16/2021 Status Check 03/18/2021 Advice 03/16/2021 Encounter Details Date Type Department Care Team Description 03/16/2021 Telephone Family Practice [facility] [address] [place] [address] Jeevan Mclean MD 132 [facility] [place] [address] Letter Requests; Status Check; Advice Allergies Active Allergy Reactions Severity Noted Date Comments Aspirin Unknown 12/12/2007 von Willebrand's disease Salicylates 03/01/2000 von Willebrand's disease documented as of this encounter (statuses as of 04/04/2021) Medications Medication Sig Dispensed Refills Start Date [...] a day. 18 g 1 03/26/2020 Active guaiFENesin-codei ne (ROBITUSSIN AC) 100-10 MG/5ML syrupIndications: Bronchitis, complicated Take 5 mL by mouth every 4 hours as needed for Cough. 120 mL 0 03/26/2020 Active ondansetron (ZOFRAN) 4 MG Tablet [...] mouth daily. 30 Tab 5 12/05/2020 Active QUEtiapine Fumarate 25 MG Oral Tablet (SEROquel) Take 1 Tab by mouth 2 times a day as needed (Insomnia, high anxiety, paranoid thoughts). 60 Tab 2 01/29/2021 Active Mirtazapine 45 MG Oral Tablet (Remeron) [...] 2 03/18/2021 Active hydrOXYzine HCl 50 MG Tablet Take 1 Tab by mouth 3 times a day as needed for Anxiety. 60 Tab 3 07/15/2020 1 Discontinue d(Refill) traMADol HCl 100 MG Oral TabletIndications :Chronic bilateral low back pain without sciatica Take 100 mg by mouth every 8 hours as needed for Pain, Moderate or Pain, Severe. 90 Tab 0 02/27/2021 1 Discontinue d(Refill) LORazepam 0.5 MG Oral Tablet (Ativan) Take 1 Tab by mouth 3 times a day as needed for Anxiety. 90 Tab 0 02/26/2021 1 Discontinue d(Refill) documented as of this encounter (statuses as of 04/04/2021) Active Problems Problem Noted Date PTSD (post-traumatic [...] Irritable bowel syndrome with diarrhea 0 04/13/2001 Tobacco use disorder documented as of this encounter (statuses as of 04/04/2021) Resolved Problems Problem Noted Date Resolved Date [...] 20 EXT ASTHMA W-O STAT ASTH 010 documented as of this encounter (statuses as of 04/04/2021) Immunizations Name Administration Dates Next Due H1N1 2009 Influenza, IM 12/19/2009 Pneumococcal Polysaccharide PPV23 (Pneumovax) 03/20/2009 Seasonal Influenza, Quadriva lent, No Preserve, IM 08/21/2015 Seasonal Influenza, Trivalen t, with Preserve, 3yr & Above, Split 08/01/2014,08/09/2013,08/03/2012,08/24,08/06/2010,12/19/2009,09/20/2007 ,09/04/2003 TDAP (age 11 and older)(Adacel) [...] Miscellaneous Notes * Telephone Encounter - Angela Barksdale, MED ASSIST - 04/04/2021 10:52 AM EDT Order and letter of medical necessity re-faxed. * Telephone Encounter - Susana Velarde CMA - 04/04/2021 10:05 AM EDT It was faxed 2 weeks ago by Angela. Angela do you have it to fax it again? * Telephone Encounter - Jennifer Breaux OSA - 04/04/2021 10:03 AM EDT Amilcar called from [facility], stating they have not received the prescription or letter ofmedical necessity. The fax number is [phone]. Please fax again or call with question. Thank you. * Telephone Encounter - Angela Barksdale MED ASSIST - 03/18/2021 11:18 AM EDT Rx and letter of medical necessity faxed. * Addendum Note - Jeevan Mclean MD - 03/18/2021 10:12 AM EDT Addended by: JEEVAN MCLEAN on: 03/18/2021 10:12 AM Modules accepted: Orders * Addendum Note - Angela Barksdale MED ASSIST - 03/18/2021 9:53 AM EDT Addended by: ANGELA BARKSDALE on: 03/18/2021 09:53 AM Modules accepted: Orders * Telephone Encounter - Myla Harris, placing judge - 03/18/2021 9:14 AM EDT AJ from medical supply calling to check on status of rx and letter of necessity . Caller was requesting rx for attends and letter of necessity be faxed over again. Fax number is [phone]. Please advise. Thanks, Myla Harris Acute Dialysis Registered Nurse Pharmacy Refill Call Center 03/18/2021,9:14 AM * Telephone Encounter - Angela Barksdale MED ASSIST - 03/16/2021 3:08 PM EDT Pricing exception form completed and faxed along with letter of necessity for Attends xl super absorb underwear. documented in this encounter Plan of Treatment Upcoming Encounters Date Type Specialty Care Team Description 04/10/2021 Laboratory Laboratory Processing [facility], [facility] Mobile Home Draw [address] [place] [address] 04/29/2021 Telemedicine Psychiatry Alisha Gandhi DO [address] [place] [address] Health Maintenance Due Date Last [...] of this encounter Visit Diagnoses Diagnosis Overactive bladder- Primary Hypertonicity of bladder documented in this encounter Advance Directives Documents on File Type Date Recorded Patient Manager Asset Expl 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
--- OUTSIDE RECORDS SUMMARY | 2023-07-25 05:01 | External Medical Summary | Summary of Care ---
Author Name Unknown Organization [place] [address] Care Team Providers Care Commutator Inspector Name Role Phone Jeevan Mclean MD Primary Care Provider [phone] Reason for Referral * Medication Prior Authorization (Routine) Status Reason Specialty Diagnoses / Procedures Referred By Contact Referred To Contact Pending Review Diagnoses Chronic bilateral low back pain without sciatica Jeevan Mclean MD 132 [facility] [place] [address] Electronically signed by Jeevan Mclean MD at Reason for Visit * Reason Onset Date Comments Medication Refill 03/27/2021 Medication Refill 03/28/2021 Encounter Details Date Type Department Care Team Description 03/27/2021 Refill Family Practice [facility] [address] [address] Jeevan Mclean MD 132 [facility] [place] [address] [phone] Chronic bilateral low back pain without sciatica Allergies Active Allergy Reactions Severity Noted Date Comments Aspirin Unknown 12/12/2007 von Willebrand's disease Salicylates 03/01/2000 von Willebrand's disease documented as of this encounter (statuses as of 03/28/2021) Medications Medication Sig Dispensed Refills Start Date [...] Pain, Severe. 90 Tab 0 03/27/2021 Active traMADol HCl 100 MG Oral TabletIndications :Chronic bilateral low back pain without sciatica Take 100 mg by mouth every 8 hours as needed for Pain, Moderate or Pain, Severe. 90 Tab 0 02/27/2021 1 Discontinue d(Refill) documented as of this encounter (statuses as of 03/28/2021) Active Problems Problem Noted Date PTSD (post-traumatic [...] as of this encounter (statuses as of 03/28/2021) Resolved Problems Problem Noted Date Resolved Date [...] as of this encounter (statuses as of 03/28/2021) Immunizations Name Administration Dates Next Due H1N1 [...] encounter Miscellaneous Notes * Telephone Encounter - Marisa Christopher PHARM Tech - 03/28/2021 1:55 PM EDT Patient calling to check on status of RX. Caller can be reached at [phone]. Thank You, Marisa Christopher Stretcher Helper [facility] 03/28/2021, 1:55 PM * Telephone Encounter - Jeevan Mclean MD - 03/27/2021 2:25 PM EDT Signed Prescriptions: Disp Refills traMADol HCl 100 MG Oral Tablet 90 Tab 0 Sig: Take 100 mg by mouth every 8 hours as needed for Pain, Moderate or Pain, Severe. Authorizing Provider: JEEVAN MCLEAN * Telephone Encounter - Jacqui Sharma CPhT - 03/27/2021 1:30 PM EDT patient calling to check on status of Tramadol 50mg . Caller can be reached at [phone] patientwill be out of medication on WEDNESDAY. Thanks, Jacqui Sharma Employee Development Director II Pharmacy Refill Call Center :30 PM * Telephone Encounter - Aly Bryant [facility] - 03/27/2021 1:00 PM EDT Pending Prescriptions: Disp Refills traMADol HCl 100 MG Oral Tablet 90 Tab 0 Sig: Take 100 mg by mouth every 8 hours as needed for Pain, Moderate or Pain, Severe. * Telephone Encounter - Aly Bryant RP - 03/27/2021 12:59 PM EDT I have reviewed the patients controlled substance dispensing history in the Prescription Drug Monitoring Program in compliance with the [facility] regulations before prescribing a controlled substance. PDMP checked on 03/27/2021. Pending Prescriptions: Disp Refills traMADol HCl 100 MG Oral Tablet 90 Tab 0 Sig: Take 100 mg by mouth every 8 hours as needed for Pain, Moderate or Pain, Severe. Last Office/Telemedicine Visit: 03/14/2021 Next Office Visit: No Future Appointments Date medication was last filled: 02/28/21 Date medication is due for refill: 03/29/21 Pharmacy: [id number] Is this request for a [...] Results Review. Please approve if appropriate. Thanks, Aly Bryant, Jose Alfredo.Ph. Clinical Pharmacist [facility] [phone] [id number] 03/27/2021,1:00 PM * Telephone Encounter - Effie Hope CPhT - 03/27/2021 8:16 AM EDT Pending Prescriptions: Disp Refills traMADol HCl 100 MG Oral Tablet 90 Tab 0 Sig: Take 100 mg by mouth every 8 hours as needed for Pain, Moderate or Pain, Severe. Last Office/Telemedicine Visit: 03/14/2021 Next Office Visit: No Future Appointments If no future appointments scheduled, and last appointment is greater than a year ago, please schedule patient for a follow-up appointment Last date the medication was ordered: 02/27/21 Pharmacy: [id number] Is this request for a [...] Encounters Date Type Specialty Care Team Description 04/03/2021 Laboratory Laboratory Processing [facility], [facility] Mobile Home Draw [address] [place] [address] [phone] 04/04/2021 [facility] [address] [facility] [place] [address] [phone] 04/29/2021 Telemedicine Psychiatry Alisha Gandhi, DO [address] [place] [address] Health Maintenance Due Date Last Done Comments Zoster Vaccines (1 of 2) 2010 *DEPRESSION [...] Documents on File Type Date Recorded Patient Oil Pipeline Dispatcher Expl 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
--- OUTSIDE RECORDS SUMMARY | 2023-07-25 05:01 | External Medical Summary | Summary of Care ---
Author Name Unknown Organization [place] [address] Care Team Providers Care Yarn Cleaner Name Role Phone Roger Alexandra MD Primary Care Provider [phone] Reason for Visit * Reason Onset Date Comments Medication Refill 04/21/2021 Encounter Details Date Type Department Care Team Description 04/21/2021 Refill [facility] [address] [place] [address] Alisha Gandhi, [address] [place], [place] [id number] Allergies Active Allergy Reactions Severity Noted Date Comments Aspirin Unknown 12/12/2007 von Willebrand's disease Salicylates 03/01/2000 von Willebrand's disease documented as of this encounter (statuses as of 04/21/2021) Medications Medication Sig Dispensed Refills Start Date [...] Severe. 90 Tab 0 03/27/2021 Active Nystatin 407515 UNIT/GM External Powder (Nystop) 1 harriet, Powder, [...] paranoid thoughts). 60 Tab 2 04/21/2021 Active QUEtiapine Fumarate 25 MG Oral Tablet (SEROquel) Take 1 Tab by mouth 2 times a day as needed (Insomnia, high anxiety, paranoid thoughts). 60 Tab 2 01/29/2021 1 Discontinue d(Refill) documented as of this encounter (statuses as of 04/21/2021) Active Problems Problem Noted Date PTSD (post-traumatic [...] as of this encounter (statuses as of 04/21/2021) Resolved Problems Problem Noted Date Resolved Date [...] as of this encounter (statuses as of 04/21/2021) Immunizations Name Administration Dates Next Due H1N1 [...] Telephone Encounter - Alisha Gandhi DO - 04/21/2021 7:15 PM EDT Signed Prescriptions: Disp Refills QUEtiapine Fumarate 25 MG Oral Tablet (SER*60 Tab 2 Sig: Take 1 Tab by mouth 2 times a day as needed (Insomnia, high anxiety, paranoid thoughts). Authorizing Provider: ALISHA GANDHI * Telephone Encounter - Jasmin Nevarez OSA - 04/21/2021 1:48 PM EDT Patient calling for refill on seroquel. Patient last seen on 03/05/21 with return appointment scheduled for 04/29/21. Patient had 0 cancelled appointments and 0 NO SHOW appointments. Medication was last filled on 01/29/21 with 2 refills. documented in this encounter Plan of Treatment Upcoming Encounters Date Type Specialty Care Team Description 04/22/2021 Laboratory Laboratory Processing [facility], [facility] Mobile Home Draw [address] [place] [address] 04/23/2021 [facility] [address] [place] [address] [phone] 04/29/2021 Telemedicine Psychiatry Alisha Gandhi DO [address] [place] [address] Health Maintenance Due Date Last Done Comments COVID-19 Vaccine (1) 1972 Zoster Vaccines (1 of 2) 2010 *DEPRESSION SCREENING,ANNUAL FOR PTS 12 AND OVER 04/11/2015 BREAST CANCER SCREENING DISCUSSION YEARLY AGES 40-75 10/28/2016 10/28/2015, 04/27/2014, 05/12/2013, Additional history exists DTaP,Tdap,and Td Vaccines (2 - Td) 06/27/2018 06/27/2008 *DISCUSS TOBACCO CESSATION (REFER TO SMARTSET #0867) 01/04/2020 *ADVANCE DIRECTIVE NOT ON FILE 03/08/2020 [...] Documents on File Type Date Recorded Patient Nurses Educator Expl 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
--- OUTSIDE RECORDS SUMMARY | 2023-07-25 05:01 | External Medical Summary ---
Author Name Unknown Address Unknown Organization K1F:LABORATORY [facility] - [address] [place] [address] Laboratory Report Ordering Provider Test Date Status ANGELLA MARINELLI 04/02/2021 13:09:33 Final Observation Date Value Abnormality Reference (Units ) Status PT 04/02/2021 13:09:33 14.5 11.5-14.6 (seconds) Final INR 04/02/2021 13:09:33 1.12 0.84-1.14 Final Performing Location LABORATORY [facility] - [address] [place] [address]
--- OUTSIDE RECORDS SUMMARY | 2023-07-25 05:01 | External Medical Summary | Summary of Care ---
Author Name Unknown Organization [facility] Address [place] [address] Care Team Providers Care Edge Bander Operator Name Role Phone Roger Alexandra MD Primary Care Provider [phone] Reason for Visit * Reason Comments Dosage Adjustment Via Phone (anticoag Cl inic) Encounter Details Date Type Department Care Team Description 04/15/2021 Anticoagulation Pharmacy Call Center [address] [facility] [place] [address] Telepharmacy, [facility] [address] [facility] [address] [phone] terminal computer operator current use of anticoagulant therapy* Allergies Active Allergy Reactions Severity Noted Date Comments Aspirin Unknown 12/12/2007 von Willebrand's disease Salicylates 03/01/2000 von Willebrand's disease documented as of this encounter (statuses as of 04/15/2021) Medications Medication Sig Dispensed Refills Start Date [...] a day. 18 g 1 03/26/2020 Active guaiFENesin-codeine (ROBITUSSIN AC) 100-10 MG/5ML syrupIndications:Br onchitis, complicated Take 5 mL by mouth every [...] 03/24/2021 Active traMADol HCl 100 MG Oral TabletIndications:C hronic bilateral low back pain without sciatica Take 100 mg by mouth every 8 hours as needed for Pain, Moderate or Pain, Severe. 90 Tab 0 03/27/2021 Active Nystatin 276782 UNIT/GM External Powder (Nystop) 1 harriet, Powder, Topical twice daily, 1 EA, 0 Refill(s), Indication: Candidiasis of Skin, Route to Pharmacy Electronically, [facility] - [address], [address], 10/02/20 10:43:00 EST, Height/Length Dosing, cm, 116.3, 10/02/20 10:43:00 EST, Weight Dosing, kg 15 g 1 03/27/2021 Active documented as of this encounter (statuses as of 04/15/2021) Active Problems Problem Noted Date PTSD (post-traumatic [...] as of this encounter (statuses as of 04/15/2021) Resolved Problems Problem Noted Date Resolved Date [...] as of this encounter (statuses as of 04/15/2021) Immunizations Name Administration Dates Next Due H1N1 [...] this encounter Progress Notes * Nissa Dc timber cutter - 04/15/2021 8:38 AM EDT Contacts Type Contact Phone 04/15/2021 08:37 AM EDT Phone (Outgoing) Kimberly Kendall (Self) [phone] (M) Left Message Advised patient to contact Anticoagulation Clinic if any unusual bruising or bleeding, recent illness, changes in medication, or questions/concerns. PT/INR results, Coumadin dose instructions, and next PT/INR date communicated as noted by Pharmacist: Yes Nissa Dc timber cutter 04/15/2021, 8:38 AM * Kim Mercado RPh - 04/15/2021 8:25 AM EDT Images from the original note were not included. Coumadin Clinic (region specific) Current Warfarin Dose As of 04/15/2021 Warfarin maintenance plan: 5 mg (10 mg x 0.5) every Wed; 10 mg (10 mg x 1) all other days INR Result As of 04/15/2021 INR goal: 2.0-3.0 INR used for dosin.98 (04/11/2021) Warfarin Plan As of 04/15/2021 Full warfarin instructions: 04/15: 20 mg; 04/16: 10 mg; Otherwise 5 mg every Wed; 10 mg all other days Next INR check: 04/22/2021 Repeat PT/INR in 1 week(s) Weekly dose: not changed Additional Dosing Information: Description GML Tech to contact patient with dose instructions as noted. Kim Mercado RPh 04/15/2021, 8:26 AM documented in this encounter Plan of Treatment Upcoming Encounters Date Type Specialty Care Team Description 04/29/2021 Telemedicine Psychiatry Alisha Gandhi, DO [address] [place] [address] Health Maintenance Due Date Last Done Comments COVID-19 Vaccine (1) 1972 Zoster Vaccines (1 of 2) 2010 *DEPRESSION SCREENING,ANNUAL FOR PTS 12 AND OVER 04/11/2015 BREAST CANCER SCREENING DISCUSSION YEARLY AGES 40-75 10/28/2016 10/28/2015, 04/27/2014, 05/12/2013, Additional history exists DTaP,Tdap,and Td Vaccines (2 - Td) 06/27/2018 06/27/2008 *DISCUSS TOBACCO CESSATION (REFER TO SMARTSET #1457) 01/04/2020 *ADVANCE DIRECTIVE NOT ON FILE 03/08/2020 [...] as of this encounter Visit Diagnoses Diagnosis halfway current use of anticoagulant therapy- Primary documented in this encounter Advance Directives Documents on File Type Date Recorded Patient Contractor Broomcorn Threshing Expl 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
--- OUTSIDE RECORDS SUMMARY | 2023-07-25 05:01 | External Medical Summary ---
Author Name Unknown Address Unknown Organization K[facility] [address] [place] [address] Laboratory Report Ordering Provider Test Date Status ANGELLA MARINELLI 04/24/2021 11:43:00 Final Observation Date Value Abnormality Reference (Units ) Status PT 04/24/2021 11:43:00 13.5 11.5-14.6 (seconds) Final INR 04/24/2021 11:43:00 1.02 0.84-1.14 Final Performing Location [facility] - [address] [place] [address]
--- OUTSIDE RECORDS SUMMARY | 2023-07-25 05:01 | External Medical Summary | Summary of Care ---
Author Name Unknown Organization [place] [address] Care Team Providers Care Surveying Technician Name Role Phone Roger Alexandra MD Primary Care Provider [phone] Reason for Visit * Reason Onset Date Comments Advice 04/22/2021 Encounter Details Date Type Department Care Team Description 04/22/2021 Telephone Family Practice [facility] [address] [place] [id number] Roger Alexandra MD [address] [place] [address] [phone] Advice Allergies Active Allergy Reactions Severity Noted Date Comments Aspirin Unknown 12/12/2007 von Willebrand's disease Salicylates 03/01/2000 von Willebrand's disease documented as of this encounter (statuses as of 04/22/2021) Medications Medication Sig Dispensed Refills Start Date [...] Severe. 90 Tab 0 03/27/2021 Active Nystatin 921662 UNIT/GM External Powder (Nystop) 1 harriet, Powder, [...] paranoid thoughts). 60 Tab 2 04/21/2021 Active documented as of this encounter (statuses as of 04/22/2021) Active Problems Problem Noted Date PTSD (post-traumatic [...] as of this encounter (statuses as of 04/22/2021) Resolved Problems Problem Noted Date Resolved Date [...] as of this encounter (statuses as of 04/22/2021) Immunizations Name Administration Dates Next Due H1N1 [...] encounter Miscellaneous Notes * Telephone Encounter - Saray Bright OSA - 04/22/2021 10:31 AM EDT Called pt and scheduled pt became very upset that we need to see her in the office. I explained that we cant appropriately treat her without seeing her. She replied "I thought he could just call me in antibiotics or something why do you guys have a nurse come here to do my blood work then" * Telephone Encounter - Roger Alexandra MD - 04/22/2021 9:38 AM EDT OV anyone * Telephone Encounter - Mónica Kurtz LPN - 04/22/2021 9:13 AM EDT Patient is calling. Started yesterday. Has a sore throat, hard to sleep. Wakes up with her legs. She has RLS. Has some chest congestion. Woke up with a headache. Has not been out of the house. Wants to stay in the house. Doesn't think it is covid. Nurse is coming today to do an INR. Asking if the doctor wants to check her white count. She also has burning when she voids at the end. Says she had some abdominal discomfort yesterday. It is gone today. Nurse can come anytime. She called and said she would be there from 7 a.m. to 2 p.m. * Telephone Encounter - Naina Cortez OSA - 04/22/2021 9:11 AM EDT Reason for patient's call: patient asking to speak with a nurse. Caller was transferred to [facility] at the nurse line. documented in this encounter Plan of Treatment Upcoming Encounters Date Type Specialty Care Team Description 04/23[facility] [address] [facility] [place] [address] [phone] 04/23/2021 Office Visit Family Medicine Roger Alexandra MD 132 [facility] [place] [address] [phone] 04/29/2021 Telemedicine Psychiatry Alisha Gandhi, DO [address] [facility] [place] [address] Health Maintenance [...] Documents on File Type Date Recorded Patient Operations Forester Expl 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
--- OUTSIDE RECORDS SUMMARY | 2023-07-25 05:01 | External Medical Summary | Summary of Care ---
Author Name Unknown Organization [place] [address] Care Team Providers Care Dairy Feed Worker Name Role Phone Roger Alexandra MD Primary Care Provider [phone] [phone] Reason for Visit * Reason Comments Acute worsening cough and acute sore throat Encounter Details Date Type Department Care Team Description 04/23/2021 Office Visit Family [facility] [address] [place] [id number] Roger Alexandra MD 132 [facility] [address] [id number] Subacute bronchitis*; Obstructive sleep apnea; COPD, severe (HCC) Allergies Active Allergy Reactions Severity Noted Date Comments Aspirin Unknown 12/12/2007 von Willebrand's disease Salicylates 03/01/2000 von Willebrand's disease documented as of this encounter (statuses as of 04/23/2021) Medications Medication Sig Dispensed Refills Start Date [...] Severe. 90 Tab 0 03/27/2021 Active Nystatin 702273 UNIT/GM External Powder (Nystop) 1 harriet, Powder, Topical twice daily, 1 EA, 0 Refill(s), Indication: Candidiasis of Skin, Route to Pharmacy Electronically, [facility] [address], [address], 10/02/20 10:43:00 [...] for Cough. 120 mL 0 04/23/2021 Active guaiFENesin-codei ne (ROBITUSSIN AC) 100-10 MG/5ML syrupIndications: Bronchitis, complicated Take 5 mL by mouth every 4 hours as needed for Cough. 120 mL 0 03/26/2020 1 Discontinue d(Medicatio n List Clean Up) documented as of this encounter (statuses as of 04/23/2021) Active Problems Problem Noted Date PTSD (post-traumatic [...] as of this encounter (statuses as of 04/23/2021) Resolved Problems Problem Noted Date Resolved Date [...] as of this encounter (statuses as of 04/23/2021) Immunizations Name Administration Dates Next Due H1N1 [...] Sign Reading Time Taken Comments Blood Pressure 118/78 04/23/2021 2:33 PM EDT Pulse 95 04/23/2021 2:33 PM EDT Temperature 37.6 C (99.6 F) 04/23/2021 2:33 PM ED T Respiratory Rate - - Oxygen Saturation 95% 04/23/2021 2:33 PM EDT Inhaled Oxygen Concentration - - Weight - - Height - - Body Mass Index - - documented in this encounter Progress Notes * Roger Alexandra MD - 04/23/2021 3:29 PM EDT SUBJECTIVE: Kimberly Kendall is a 60 year old female. Chief Complaint Patient presents with Acute worsening cough and acute sore throat HPI: This is a very unhealthy 60 year old female who is ostensibly home-bound at this point who comes inwith her new building maintenance mechanic for increasing cough and sore throat. She did quit smoking which is great considering that she is oxygen dependent. She feels fatigued most of the time. She is completely sedentary at this point. She denies fevers/chills/night sweats. She has pain in her legs all the time. Clinically her exam has not changed since the last time I saw her in person. Patient Active Problem List Diagnosis Code Irritable bowel syndrome with diarrhea K58.0 Tobacco use disorder F17.200 SIMA (generalized anxiety disorder) F41.1 COPD, severe ([facility]) J44.9 Obstructive sleep apnea G47.33 Patent foramen ovale Q21.1 Von Willebrand disease (HCC) D68.0 Idiopathic cardiomyopathy (HCC) I42.8 Narcotic addiction (HCC) F11.20 Acquired hypothyroidism E03.9 Oxygen dependent Z99.81 Moderate episode of recurrent major depressive disorder (HCC) F33.1 Morbid obesity due to excess calories (HCC) E66.01 Non compliance w medication regimen Z91.14 Chronic bilateral low back pain without sciatica M54.5, G89.29 Paroxysmal atrial fibrillation (HCC) I48.0 Drug-seeking behavior Z76.5 History of multiple strokes Z86.73 Grade I diastolic dysfunction I51.9 PTSD (post-traumatic stress disorder) F43.10 Current Outpatient Medications Medication Sig Dispense Refill [...] anxiety, paranoid thoughts). 60 Tab 2 Nystatin 815651 UNIT/GM External Powder (Nystop) 1 harriet, Powder, Topical twice daily, 1 EA, 0 Refill(s), Indication: Candidiasis of Skin, Route to Pharmacy Electronically, [facility] - [address], [address], 10/02/20 10:43:00 EST, Height/Length Dosing, cm, 116.3, 10/02/20 10:43:00 EST, Weight Dosing, kg 15 g 1 traMADol HCl 100 MG Oral Tablet Take 100 mg by mouth every 8 hours as needed for Pain, Moderateor Pain, Severe. 90 Tab 0 hydrOXYzine HCl [...] needed for Nausea. 15 Tab0 Albuterol Sulfate (PROAIR HFA) 108 (90 Base) MCG/ACT AERS Inhale 2 Puffs by mouth 4 times a day. 18 g 1 fluticasone (FLOVENT HFA) 110 MCG/ACT inhaler [...] the day as needed and at bedtime Allergy: Review of patient's allergies indicates: Allergen Reactions Aspirin Unknown von Willebrand's disease Salicylates von Willebrand's disease OBJECTIVE: BP 118/78 | Pulse 95 | Temp 37.6 C (99.6 F) | SpO2 95% Gen: morbidly obese female sitting in wheelchair Lungs: scattered rhonchi; mild expiratory wheeze Heart: rrr, no mrg Skin: no rashes Ext: no c/c/e ASSESSMENT AND PLAN: (J20.9) Subacute bronchitis (primary encounter diagnosis) Plan: Levaquin 750 mg po x 10 days; codeine cough syrup prn; use inhalers as prescribed (F17.200) Tobacco use disorder Plan: quit smoking!!!! Congratulated her on this (G47.33) Obstructive sleep apnea Plan: stable (J44.9) COPD, severe (HCC) Plan: stable Follow up as needed. No other complaints were offered at this time. Roger Alexandra MD documented in this encounter Plan of Treatment Upcoming Encounters Date Type Specialty Care Team Description 04/24/2021 Laboratory Laboratory Processing Gm, [facility] Mobile Home Draw [address] [place] [address] [phone] 04/25/2021 [facility] [address] [place] [address] [phone] 04/29/2021 Telemedicine Psychiatry Alisha Gandhi [address] [place] [address] Health Maintenance Due Date Last [...] as of this encounter Visit Diagnoses Diagnosis Subacute bronchitis- Primary Acute bronchitis Obstructive sleep apnea Obstructive sleep apnea (adult) (pediatric) COPD, severe (HCC) Chronic airway obstruction, not elsewhere classified documented in this encounter Advance Directives Documents on File Type Date Recorded Patient Engagement Executive Expl 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
--- OUTSIDE RECORDS SUMMARY | 2023-07-25 05:01 | External Medical Summary | Summary of Care ---
Author Name Unknown Organization [facility] Address [place] [address] Care Team Providers Care Ultimate Hoops Trainer Name Role Phone Roger Alexandra MD Primary Care Provider [phone] [phone] Reason for Visit * Reason Comments Dosage Adjustment Via Phone (anticoag Cl inic) Encounter Details Date Type Department Care Team Description 04/04/2021 Anticoagulation Pharmacy Call Center [address] [facility] [address] [place] [address] Telepharmacy, [facility] [address] [facility] [address] [phone] terminal system operator current use of anticoagulant [...] Severe. 90 Tab 0 03/27/2021 Active Nystatin [id number] UNIT/GM External Powder (Nystop) 1 harriet, Powder, [...] Progress Notes * Luis Nava CPhT - 04/04/2021 8:45 AM EDT Contacts Type Contact Phone 04/04/2021 08:43 AM EDT Phone (Outgoing) Kimberly Kendall (Self) [phone] (M) Left Message Patient Findings Negatives: Signs/symptoms of thrombosis, Signs/symptoms [...] noted by Pharmacist: Yes Luis Nava CPhT 04/04/2021, 8:45 AM * Kim Mercado RPh - 04/04/2021 7:57 AM EDT Images from the original note were not included. Coumadin Clinic (region specific) Current Warfarin Dose As of 04/04/2021 Warfarin maintenance plan: 5 mg (10 mg x 0.5) every Wed; 10 mg (10 mg x 1) all other days INR Result As of 04/04/2021 INR goal: 2.0-3.0 INR used for dosin.12 (04/02/2021) Warfarin Plan As of 04/04/2021 Full warfarin instructions: 04/04: 15 mg; 04/05: 15 mg; Otherwise 5 mg every Wed; 10 mg all other days Next INR check: 04/09/2021 Repeat PT/INR in 1 week(s) Weekly dose: not changed- dose increased last week yet INR went down, missed doses? Bolus for 2 days and check in a week due to suspected non-compliance. Additional Dosing Information: Description GML Tech to contact patient with dose instructions as noted. Kim Mercado RPh 04/04/2021, 7:58 AM documented in this encounter Plan of Treatment Upcoming Encounters Date Type Specialty Care Team Description 04/10/2021 Laboratory Laboratory Processing [facility] Mobile Home Draw [address] [place] [address] 04/29/2021 Telemedicine Psychiatry Alisha Gandhi DO [address] [place] [address] Health Maintenance Due Date Last [...] as of this encounter Visit Diagnoses Diagnosis [facility] current use of anticoagulant therapy- Primary documented in this encounter Advance Directives Documents on File Type Date Recorded Patient Small Boat Engineer Expl 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
--- OUTSIDE RECORDS SUMMARY | 2023-07-25 05:01 | External Medical Summary | Summary of Care ---
Author Name Unknown Organization [place] [address] Care Team Providers Care Hand Button Splitter Name Role Phone Jeevan Mclean MD Primary Care Provider [phone] Reason for Visit * Reason Onset Date Comments Letter Requests 03/16/2021 Status Check 03/18/2021 Advice 03/16/2021 Encounter Details Date Type Department Care Team Description 03/16/2021 Telephone Family Practice [facility] [address] [place] [address] Jeevan Mclean MD 132 [facility] [address] [address] Letter Requests; Status Check; [...] encounter Miscellaneous Notes * Telephone Encounter - Susana Velarde CMA - 04/04/2021 10:05 AM EDT It was faxed 2 weeks ago by Deanna. Miller do you have it to fax it again? * Telephone Encounter - Jennifer Breaux RUFINA - 04/04/2021 10:03 AM EDT Amilcar called from [facility], stating they have not received the prescription or letter ofmedical necessity. The fax number is [phone]. Please fax again or call with question. [...] accepted: Orders * Telephone Encounter - Myla Harris crop and soil scientist - 03/18/2021 9:14 AM EDT AJ from [facility] calling to check on status of rx and letter of necessity . Caller was requesting rx for attends and letter of necessity be faxed over again. Fax number is [phone]. Please advise. Thanks, Myla Harris General Medical Practitioner Pharmacy Refill Call Center 03/18/2021,9:14 AM * Telephone Encounter - Angela Barksdale MED ASSIST - 03/16/2021 3:08 PM EDT Pricing exception form completed and faxed along with letter of necessity for Attends xl super absorb underwear. documented in this encounter Plan of Treatment Upcoming Encounters Date Type Specialty Care Team Description 04/10/2021 Laboratory Laboratory Processing [facility], [facility] Mobile Home Draw [address] [place] [address] 04/29/2021 Telemedicine Psychiatry Alisha Gandhi DO [address] [place] [address] Health Maintenance Due Date Last Done Comments COVID-19 Vaccine (1) 1972 Zoster Vaccines (1 of 2) 2010 *DEPRESSION SCREENING,ANNUAL FOR PTS 12 AND OVER 04/11/2015 BREAST CANCER SCREENING DISCUSSION YEARLY AGES 40-75 10/28/2016 10/28/2015, 04/27/2014, 05/12/2013, Additional history exists DTaP,Tdap,and Td Vaccines (2 - Td) 06/27/2018 06/27/2008 *DISCUSS TOBACCO CESSATION (REFER TO SMARTSET #4246) 01/04/2020 *ADVANCE DIRECTIVE NOT ON FILE 03/08/2020 [...] Documents on File Type Date Recorded Patient Sheet Writer Expl 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
--- OUTSIDE RECORDS SUMMARY | 2023-07-25 05:01 | External Medical Summary | Summary of Care ---
Author Name Unknown Organization [place] [address] Care Team Providers Care Microphone Operator Name Role Phone Roger Alexandra MD Primary Care Provider [phone] [phone] Reason for Visit * Reason Onset Date Comments Order Request 04/03/2021 Encounter Details Date Type Department Care Team Description 04/03/2021 Telephone Family Practice [facility] [address] [place] [address] Roger Alexandra MD 132 [facility] [place] [address] Order Request Allergies Active Allergy Reactions Severity Noted Date Comments Aspirin Unknown 12/12/2007 von Willebrand's disease Salicylates 03/01/2000 von Willebrand's disease documented as of this encounter (statuses as of 04/03/2021) Medications Medication Sig Dispensed Refills Start Date [...] Severe. 90 Tab 0 03/27/2021 Active Nystatin [id number] UNIT/GM External Powder (Nystop) 1 harriet, Powder, Topical twice daily, 1 EA, 0 Refill(s), Indication: Candidiasis of Skin, Route to Pharmacy Electronically, [facility] - [address], [address], 10/02/20 10:43:00 EST, Height/Length Dosing, cm, 116.3, 10/02/20 10:43:00 EST, Weight Dosing, kg 15 g 1 03/27/2021 Active documented as of this encounter (statuses as of 04/03/2021) Active Problems Problem Noted Date PTSD (post-traumatic [...] as of this encounter (statuses as of 04/03/2021) Resolved Problems Problem Noted Date Resolved Date [...] as of this encounter (statuses as of 04/03/2021) Immunizations Name Administration Dates Next Due H1N1 [...] encounter Miscellaneous Notes * Telephone Encounter - Ashli Williamson LPN - 04/03/2021 1:37 PM EDT Order placed * Telephone Encounter - Cathryn Christopher PHARM Tech - 04/03/2021 12:39 PM EDT Pt advised she has been waiting for the order to be sent and [facility] had requested An order was requested for this patient. Name of Requestor: pt Order Requested: pull ups Diagnosis/Reason for Request: needed Does the order need to be faxed somewhere? If so, where?: [facility] Fax Number, if applicable: [phone] Call Back Number: [phone] Thank You, Cathryn Quijano [facility] Portfolio Lead [facility] Telepharmacy 04/03/2021, 12:39 PM documented in this encounter Plan of Treatment Upcoming Encounters Date Type Specialty Care Team Description 04/04/2021 [facility] Telepharmacy, [facility] [address] [place] [address] [phone] 04/29/2021 Telemedicine Psychiatry Alisha Gandhi, DO [address] [place] [address] Health Maintenance Due Date Last [...] Documents on File Type Date Recorded Patient Acid Correction Hand Expl 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
--- OUTSIDE RECORDS SUMMARY | 2023-07-25 05:01 | External Medical Summary | Summary of Care ---
Author Name Unknown Organization [place] [address] Care Team Providers Care House Builder Name Role Phone Roger Alexandra MD Primary Care Provider [phone] Reason for Visit * Reason Onset Date Comments Order Request 04/03/2021 Encounter Details Date Type Department Care Team Description 04/03/2021 Telephone Family Practice [facility] [address] [address] Roger Alexandra MD 132 [facility] [address] [place] [address] Order Request Allergies Active [...] Severe. 90 Tab 0 03/27/2021 Active Nystatin 441679 UNIT/GM External Powder (Nystop) 1 harriet, Powder, [...] encounter Miscellaneous Notes * Telephone Encounter - Cathryn Christopher PHARM Tech - 04/03/2021 12:39 PM EDT Pt advised she has been waiting for the order to be sent and [facility] had requested An order was requested for this patient. Name of Requestor: pt Order Requested: pull ups Diagnosis/Reason for Request: needed Does the order need to be faxed somewhere? If so, where?: [facility] Fax Number, if applicable: [phone] Call Back Number: [phone] Thank You, Cathryn Quijano [facility] Sprue Cutting Press Operator [facility] 04/03/2021, 12:39 PM documented in this encounter Plan of Treatment Upcoming Encounters Date Type Specialty Care Team Description 04/04/2021 [facility] Telepharmacy, [facility] [address] [place] [address] [phone] 04/29/2021 Telemedicine Psychiatry Alisha Gandhi, DO [address] [place] [address] Health Maintenance Due Date Last [...] Documents on File Type Date Recorded Patient Runner Out Expl 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
--- OUTSIDE RECORDS SUMMARY | 2023-07-25 05:01 | External Medical Summary | Summary of Care ---
Author Name Unknown Organization [place] [address] Care Team Providers Care Agency Development Manager Name Role Phone Jeevan Mclean MD Primary Care Provider [phone] Reason for Visit * Reason Onset Date Comments Letter Requests 03/16/2021 Status Check 03/18/2021 Advice 03/16/2021 Encounter Details Date Type Department Care Team Description 03/16/2021 Telephone Family Practice [facility] [address] [place] [address] Jeevan Mclean MD 132 [facility] [address] [place] [address] Letter Requests; Status [...] encounter Miscellaneous Notes * Telephone Encounter - Jennifer Breaux, RUFINA - 04/04/2021 10:03 AM EDT Amilcar called from [facility], stating they have not received the prescription or letter ofmedical necessity. The fax number is [phone]. Please fax again or call with question. [...] Orders * Telephone Encounter - Myla Harris PHARM Tech - 03/18/2021 9:14 AM EDT AJ from [facility] calling to check on status of rx and letter of necessity . Caller was requesting rx for attends and letter of necessity be faxed over again. Fax number is [phone]. Please advise. Thanks, Myla Harris Meat Stuffer Pharmacy Refill Call Center 03/18/2021,9:14 AM * Telephone Encounter - Angela Barksdale MED ASSIST - 03/16/2021 3:08 PM EDT Pricing exception form completed and faxed along with letter of necessity for Attends xl super absorb underwear. documented in this encounter Plan of Treatment Upcoming Encounters Date Type Specialty Care Team Description 04/10/2021 Laboratory Laboratory Processing [facility], [facility] Mobile Home Draw [address] [place] [address] 04/29/2021 Telemedicine Psychiatry Alsiha Gandhi DO [address] [place] [address] Health Maintenance Due Date Last [...] Documents on File Type Date Recorded Patient Finding Fastener Expl 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
--- OUTSIDE RECORDS SUMMARY | 2023-07-25 05:01 | External Medical Summary ---
Author Name Unknown Address Unknown Organization K0G:[facility] [address] [place] [address] Laboratory Report Ordering Provider Test Date Status ANGELLA MARINELLI 04/11/2021 02:55:00 Final Observation Date Value Abnormality Reference (Units ) Status PT 04/11/2021 02:55:00 13.0 11.5-14.6 (seconds) Final INR 04/11/2021 02:55:00 0.98 0.84-1.14 Final Performing Location [facility] [address] [place] [address]
--- OUTSIDE RECORDS SUMMARY | 2023-07-25 05:02 | External Medical Summary | Summary of Care ---
Author Name Unknown Organization [place] [address] Care Team Providers Care Ortho Tech Name Role Phone Roger Alexandra MD Primary Care Provider [phone] [phone] Reason for Visit * Reason Onset Date Comments eRx-Medication Refill Medication Refill 03/28/2021 Encounter Details Date Type Department Care Team Description 03/27/[address] [facility] [address] [place] [address] Roger Alexandra MD 132 [facility] [address] [place] [address] Chronic bilateral low back [...] Severe. 90 Tab 0 03/27/2021 Active Nystatin 169480 UNIT/GM External Powder (Nystop) 1 harriet, Powder, [...] encounter Miscellaneous Notes * Telephone Encounter - Tunde Israel RPh - 03/28/2021 6:07 AM EDT Refused Prescriptions: Disp Refills traMADol HCl 100 MG Oral Tablet 90 Tab Sig: take 1 tablet by mouth every 8 hours if needed for mild pain or severe painRefused By: TUNDE ISRAELReason for Refusal: Duplicate Request documented in this encounter Plan of Treatment Upcoming Encounters Date Type Specialty Care Team Description 04/03/2021 Laboratory Laboratory Processing [facility], [facility] Mobile Home Draw [address] [place], [place] [address] 04/04/2021 [facility] [address] [place] [address] [phone] 04/29/2021 Telemedicine Psychiatry GandhiAlisha chambers [address] [place], [place] [address] Health Maintenance Due Date Last Done Comments [...] Documents on File Type Date Recorded Patient Tag Writer Expl 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
--- OUTSIDE RECORDS SUMMARY | 2023-07-25 05:02 | External Medical Summary | Summary of Care ---
Author Name Unknown Organization [place] [address] Care Team Providers Care Financial Services Auditor Name Role Phone Jeevan Mclean MD Primary Care Provider [phone] [phone] Reason for Visit * Reason Onset Date Comments Letter Requests 03/16/2021 Status Check 03/18/2021 Encounter Details Date Type Department Care Team Description 03/16/2021 Telephone Family Practice [facility] [address] [place] [address] Jeevan Mclean MD 132 [facility] [place] [place] [address] Letter Requests; Status Check Allergies Active Allergy Reactions Severity Noted Date Comments Aspirin Unknown 12/12/2007 von Willebrand's disease Salicylates 03/01/2000 von Willebrand's disease documented as of this encounter (statuses as of 03/18/2021) Medications Medication Sig Dispensed Refills Start Date [...] for Nausea. 15 Tab 0 06/07/2020 Active hydrOXYzine HCl 50 MG Tablet Take 1 Tab by mouth 3 times a day as needed for Anxiety. 60 Tab 3 07/15/2020 Active Albuterol Sulfate (2.5 MG/3ML) 0.083% Inhalation [...] LEG SWELLING) 30 Tab 2 02/09/2021 Active traMADol HCl 100 MG Oral TabletIndications:C hronic bilateral low back pain without sciatica Take 100 mg by mouth every 8 hours as needed for Pain, Moderate or Pain, Severe. 90 Tab 0 02/27/2021 Active LORazepam 0.5 MG Oral Tablet (Ativan) Take 1 Tab by mouth 3 times a day as needed for Anxiety. 90 Tab 0 02/26/2021 Active busPIRone HCl 10 MG Oral Tablet (Buspar) Take 1 Tab by mouth 2 times a day. 60 Tab 2 03/05/2021 Active Disposable Brief X-LargeIndications: Overactive bladder Attends X-Large Super Absorb Underwear 32 Each 2 03/18/2021 Active documented as of this encounter (statuses as of 03/18/2021) Active Problems Problem Noted Date PTSD (post-traumatic [...] as of this encounter (statuses as of 03/18/2021) Resolved Problems Problem Noted Date Resolved Date [...] as of this encounter (statuses as of 03/18/2021) Immunizations Name Administration Dates Next Due H1N1 [...] Miscellaneous Notes * Telephone Encounter - Angela Barksdale MED [...] be faxed over again. Fax number is [phone]. Please advise. Myla Ordaz Passenger Car Cleaning Supervisor Pharmacy Refill Call Center 03/18/2021,9:14 AM * Telephone Encounter - Angela Barksdale MED ASSIST - 03/16/2021 3:08 PM EDT Pricing exception form completed and faxed along with letter of necessity for Attends xl super absorb underwear. documented in this encounter Plan of Treatment Upcoming Encounters Date Type Specialty Care Team Description 03/24/2021 Laboratory Laboratory Processing Gm, [facility] Mobile Home Draw [address] [place] [address] [phone] 03/25/2021 [facility] [address] [facility] [place] [address] [phone] 04/29/2021 Telemedicine Psychiatry Alisha Gandhi, DO [address] [place] [address] [phone] Health Maintenance Due Date Last Done Comments [...] Documents on File Type Date Recorded Patient Dairy Farmworker Expl 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
--- OUTSIDE RECORDS SUMMARY | 2023-07-25 05:02 | External Medical Summary | Summary of Care ---
Author Name Unknown Organization [facility] Address [place] [address] Care Team Providers Care Trauma Surgeon Name Role Phone Roger Alexandra MD Primary Care Provider [phone] [phone] Reason for Visit * Reason Comments Dosage Adjustment Via Phone (anticoag Cl inic) Encounter Details Date Type Department Care Team Description 03/25/2021 Anticoagulation Pharmacy Call Center [address] [facility] [place] [address] Telepharmacy, [facility] [address] [facility] [address] [phone] technician terminal and repeater current use of anticoagulant therapy* Allergies Active Allergy Reactions Severity Noted Date Comments Aspirin Unknown 12/12/2007 von Willebrand's disease Salicylates 03/01/2000 von Willebrand's disease documented as of this encounter (statuses as of 03/25/2021) Medications Medication Sig Dispensed Refills Start Date [...] Pain, Severe. 90 Tab 0 02/27/2021 Active busPIRone HCl 10 MG Oral Tablet [...] for Anxiety. 60 Tab 3 03/24/2021 Active documented as of this encounter (statuses as of 03/25/2021) Active Problems Problem Noted Date PTSD (post-traumatic [...] as of this encounter (statuses as of 03/25/2021) Resolved Problems Problem Noted Date Resolved Date [...] as of this encounter (statuses as of 03/25/2021) Immunizations Name Administration Dates Next Due H1N1 [...] Progress Notes * Kim Mercado RPh - 03/25/2021 4:22 PM EDT Noted Kim Mercado Rph, Pharm.D. Clinical Pharmacist Telepharmacy 03/25/2021,4:22 PM * Luis Nava CPhT - 03/25/2021 2:41 PM EDT Contacts Type Contact Phone 03/25/2021 02:39 PM EDT Phone (Outgoing) Kimberly Kendall (Self) [phone] (M) Patient Findings Positives: Change in diet/appetite (went 3-4 days without eating - just no appetite per pt ) Negatives: Signs/symptoms of thrombosis, Signs/symptoms of bleeding, Change in health, Change in alcohol use, Change in activity, Upcoming invasive procedure, Missed doses, Extra doses, Change in medications, Bruising Advised patient to contact Anticoagulation Clinic if any unusual bruising or bleeding, recent illness, changes in medication, or questions/concerns. PT/INR results, Coumadin dose instructions, and next PT/INR date communicated as noted by Pharmacist: Yes Luis Nava CPhT 03/25/2021, 2:41 PM * Kim Mercado RPh - 03/25/2021 12:29 PM EDT Images from the original note were not included. Coumadin Clinic (region specific) Current Warfarin Dose As of 03/25/2021 Warfarin maintenance plan: 5 mg (10 mg x 0.5) every Wed, Fri; 10 mg (10 mg x 1) all other days INR Result As of 03/25/2021 INR goal: 2.0-3.0 INR used for dosin.35 (03/24/2021) Warfarin Plan As of 03/25/2021 Full warfarin instructions: 03/25: 15 mg; 03/26: 10 mg; Otherwise 5 mg every Wed; 10 mg all other days Next INR check: 04/03/2021 Repeat PT/INR in 1.5 week(s) Weekly dose: increased Additional Dosing Information: Description GML Tech to contact patient with dose instructions as noted. Kim Mercado RPh 03/25/2021, 12:30 PM documented in this encounter Plan of Treatment Upcoming Encounters Date Type Specialty Care Team Description 04/03/2021 Laboratory [facility] Home Draw [address] [place] [address] 04/04/2021 [facility] [address] [place] [address] [phone] 04/29/2021 Telemedicine Psychiatry Alisha Gandhi, [address] [place] [address] Health Maintenance Due Date Last [...] Documents on File Type Date Recorded Patient Mental Health Technician Expl 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
--- OUTSIDE RECORDS SUMMARY | 2023-07-25 05:02 | External Medical Summary | Summary of Care ---
Author Name Unknown Organization [place] [address] Care Team Providers Care Zmt Operator Name Role Phone Jeevan Mclean MD Primary Care Provider [phone] [phone] Reason for Referral * Medication Prior Authorization (Routine) Status Reason Specialty Diagnoses / Procedures Referred By Contact Referred To Contact Pending Review Diagnoses Chronic bilateral low back pain without sciatica Jeevan Mclean MD 132 [facility] [place] [address] Electronically signed by Jeevan Mclean MD at Reason for Visit * Reason Onset Date Comments Medication Refill 03/27/2021 Medication Refill 03/28/2021 Encounter Details Date Type Department Care Team Description 03/27/2021 Refill Family Practice [facility] [address] [address] Jeevan Mclean MD 132 [facility] [place] [address] [phone] Chronic bilateral low back pain without sciatica [...] of RX. Caller can be reached at [phone]. Thank You, Marisa Christopher Wire Inspector [facility] 03/28/2021, 1:55 PM * Telephone Encounter - [...] 50mg . Caller can be reached at [phone] patientwill be out of medication on WEDNESDAY. Thanks, Jacqui Sharma Flower Grower II Pharmacy Refill Call Center :30 PM * Telephone Encounter - Aly Bryant [facility] - 03/27/2021 1:00 PM EDT Pending Prescriptions: [...] Drug Monitoring Program in compliance with the [facility] regulations before prescribing a controlled [...] due for refill: 03/29/21 Pharmacy: [facility] [address] [id number] Is this request for a controlled [...] Thanks, Aly Bryant, Jose Alfredo.Ph. Clinical Pharmacist [facility] [phone] 03/27/2021,1:00 PM * Telephone Encounter - Effie [...] medication was ordered: 02/27/21 Pharmacy: [facility] [id number] Is this request for a controlled [...] Care Team Description 04/03/2021 Laboratory Laboratory Processing [facility], [facility] Mobile Home Draw [address] [place] [address] [phone] 04/04/2021 [facility] [address] 60 [facility] [place] [address] [phone] 04/29/2021 Telemedicine Psychiatry Alisha Gandhi, DO [address] [place] [address] Health Maintenance Due Date Last [...] Documents on File Type Date Recorded Patient French Lecturer Expl 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
--- OUTSIDE RECORDS SUMMARY | 2023-07-25 05:02 | External Medical Summary | Summary of Care ---
Author Name Unknown Organization [place] [address] Care Team Providers Care Receiver Setter Name Role Phone Roger Alexandra MD Primary Care Provider [phone] Reason for Visit * Reason Comments eRx-Medication Refill Encounter Details Date Type Department Care Team Description 03/27/2021 Refill Family Practice [facility] [address] [place] [address] Roger Alexandra MD 132 [facility] [place] [address] [phone] Chronic bilateral low back pain without sciatica [...] Severe. 90 Tab 0 03/27/2021 Active Nystatin 502030 UNIT/GM External Powder (Nystop) 1 harriet, Powder, [...] Care Team Description 04/03/2021 Laboratory Laboratory Processing [facility] Mobile Home Draw [address] [place] [address] 04/04/2021 [facility] [address] [place] [address] [phone] 04/29/2021 [facility] [address] [place] [address] Health Maintenance Due Date Last [...] Documents on File Type Date Recorded Patient Podiatric Assistant Expl 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
--- OUTSIDE RECORDS SUMMARY | 2023-07-25 05:02 | External Medical Summary | Summary of Care ---
Author Name Unknown Organization [place] [address] Care Team Providers Care Shipping Checker Name Role Phone Jeevan Mclean MD Primary Care Provider [phone] Reason for Visit * Reason Onset Date Comments Letter Requests 03/16/2021 Status Check 03/18/2021 Encounter Details Date Type Department Care Team Description 03/16/2021 Telephone Family Practice [facility] [address] [place] [address] Jeevan Mclean MD 132 [facility] [place] [address] Letter Requests; Status Check [...] Miscellaneous Notes * Addendum Note - Jeevan Mclean MD [...] be faxed over again. Fax number is [phone]. Please advise. Thanks, Myla Harris Expense Clerk Pharmacy Refill Call Center 03/18/2021,9:14 AM * Telephone Encounter - Angela Barksdale MED ASSIST - 03/16/2021 3:08 PM EDT Pricing exception form completed and faxed along with letter of necessity for Attends xl super absorb underwear. documented in this encounter Plan of Treatment Upcoming Encounters Date Type Specialty Care Team Description 03/24/2021 Laboratory Laboratory Processing [facility] Mobile Home Draw [address] [place], [place] [id number] 03/25/2021 [facility] [address] [place] [address] [phone] 04/29/2021 Telemedicine Psychiatry Alisha Gandhi DO [address] [place], [place] [address] Health Maintenance Due Date Last Done Comments [...] Documents on File Type Date Recorded Patient Top Collar Baster Expl 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
--- OUTSIDE RECORDS SUMMARY | 2023-07-25 05:02 | External Medical Summary | Summary of Care ---
Author Name Unknown Organization [place] [address] Care Team Providers Care General Manager In Training Name Role Phone Roger Alexandra MD Primary Care Provider [phone] [phone] Reason for Visit * Reason Onset Date Comments Medication Refill 03/24/2021 Encounter Details Date Type Department Care Team Description 03/24/2021 Refill [facility] [address] [place] [address] [facility] [address] [place], [place] [id number] Allergies Active Allergy Reactions Severity Noted Date Comments Aspirin Unknown 12/12/2007 von Willebrand's disease Salicylates 03/01/2000 von Willebrand's disease documented as of this encounter (statuses as of 03/24/2021) Medications Medication Sig Dispensed Refills Start Date [...] 02/09/2021 Active traMADol HCl 100 MG Oral TabletIndications [...] for Anxiety. 60 Tab 3 03/24/2021 Active hydrOXYzine HCl 50 MG Tablet Take 1 Tab by mouth 3 times a day as needed for Anxiety. 60 Tab 3 07/15/2020 Discontinue d(Refill) documented as of this encounter (statuses as of 03/24/2021) Active Problems Problem Noted Date PTSD (post-traumatic [...] as of this encounter (statuses as of 03/24/2021) Resolved Problems Problem Noted Date Resolved Date [...] as of this encounter (statuses as of 03/24/2021) Immunizations Name Administration Dates Next Due H1N1 [...] encounter Miscellaneous Notes * Telephone Encounter - Florencio Gandhiah DO Paty - 03/24/2021 2:19 PM EDT Signed Prescriptions: Disp Refills hydrOXYzine HCl 50 MG Oral Tablet 60 Tab 3 Sig: Take 1 Tab by mouth 3 times a day as needed for Anxiety. Authorizing Provider: ALISHA GANDHI * Telephone Encounter - Jasmin Nevarez OSA - 03/24/2021 2:11 PM EDT Patient calling for refill on Hydroxyzine. Patient last seen on 03/05/21 with return appointment scheduled for 04/29/21. Patient had 0 cancelled appointments and 0 NO SHOW appointments. Medication was last filled on 07/15/20 with 3 refills. iKmberly said she hopes this with help with her anxiety. documented in this encounter Plan of Treatment Upcoming Encounters Date Type Specialty Care Team Description 03/25/2021 [facility] [address] [place] [address] [phone] 04/29/2021 Telemedicine Psychiatry Alisha Gandhi DO [address] [place] [address] Health Maintenance Due Date Last [...] Documents on File Type Date Recorded Patient Coil Tester Expl 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
--- OUTSIDE RECORDS SUMMARY | 2023-07-25 05:02 | External Medical Summary | Summary of Care ---
Author Name Unknown Organization [place] [address] Care Team Providers Care Ctrs Name Role Phone Roger Alexandra MD Primary Care Provider [phone] [phone] Reason for Visit * Reason Onset Date Comments FYI 11/25/2020 Encounter Details Date Type Department Care Team Description 11/25/2020 Telephone Family Practice [facility] [address] [place] [id number] Roger Alexandra MD 132 [facility] [place] [address] FYI Allergies Active Allergy Reactions Severity Noted Date Comments Aspirin Unknown 12/12/2007 von Willebrand's disease Salicylates 03/01/2000 von Willebrand's disease documented as of this encounter (statuses as of 03/19/2021) Medications Medication Sig Dispensed Refills Start Date End Date Status OXYGEN 4 L during the day as needed and at bedtime 0 02/14/2015 Active albuterol-ipratropium (DUONEB) 2.5-0.5 MG/3ML nebulizer solution Inhale 3 mL by mouth every 4 hours as needed for Shortness of Breath or Wheezing. 0 09/27/2015 Active Acetaminophen (TYLENOL) 325 MG CAPS Take by mouth. 0 Active Cholestyramine Light (QUESTRAN LIGHT) 4 GM/DOSE POWDIndications:Coliti s Take 1 Scoopful Dosing Unit by mouth 2 times a day. in 6oz of liquid . 210 g 3 03/05/2020 Active fluticasone (FLOVENT HFA) 110 MCG/ACT inhalerIndications:Bro nchitis, complicated Inhale 2 Puffs by mouth 2 times a day. 36 g 3 03/26/2020 Active Albuterol Sulfate (PROAIR HFA) 108 (90 Base) MCG/ACT AERSIndications:Bronch itis, complicated Inhale 2 Puffs by mouth 4 times a day. 18 g 1 03/26/2020 Active guaiFENesin-codeine (ROBITUSSIN AC) 100-10 MG/5ML syrupIndications:Bronc hitis, complicated Take 5 mL by mouth every [...] Sulfate (2.5 MG/3ML) 0.083% Inhalation Nebulization Solution (PROVENTIL)Indications :Bronchitis, complicated,COPD, severe (HCC) Inhale 1 Vial via nebulizer every 4 hours as needed for Wheezing. 20 mL 1 08/23/2020 Active documented as of this encounter (statuses as of 03/19/2021) Active Problems Problem Noted Date PTSD (post-traumatic [...] as of this encounter (statuses as of 03/19/2021) Resolved Problems Problem Noted Date Resolved Date [...] as of this encounter (statuses as of 03/19/2021) Immunizations Name Administration Dates Next Due H1N1 [...] encounter Miscellaneous Notes * Telephone Encounter - Móniac Kurtz LPN - 11/26/2020 4:26 PM EST Rachael calling from [facility]. Asking if they have to obtain the PT/INR. Informed that [facility] is not coming in. They will draw it tomorrow. * Telephone Encounter - Sharmaine Ramirez OSA - 11/26/2020 4:20 PM EST Rachael from [facility] requesting to speak with nurse. Warm scott Sales * Telephone Encounter - Susana Velarde CMA - 11/25/2020 5:15 PM EST Tried calling marilou. Couldn't track her down. Left message with the transition manager girl to call us back. Called pt. PT doesn't have mobile lab coming. She is not sure if they are no longer seeing her due to HH. * Telephone Encounter - Roger Alexandra MD - 11/25/2020 4:32 PM EST I don't know. Please find out * Telephone Encounter - Alisha Michele LPN - 11/25/2020 3:21 PM EST Marilou from [facility] calling due to pt refusing Mar[facility] to come to her home today. Pt was due to have PT/IRN done today. Pt requested for [facility] to come on Wednesday for visit. Pt had [employer] mobile lab come at one time. Marilou inquiring if mobile lab is still seeing pt or if they no longer see pt due to HH seeing pt. Please advise. documented in this encounter Plan of Treatment Upcoming Encounters Date Type Specialty Care Team Description 03/24/2021 Laboratory Laboratory Processing [facility] Mobile Home Draw [address] [place] [address] 03/25/2021 [facility] [address] [place] [address] [phone] 04/29/2021 Telemedicine Psychiatry Alisha Gandhi DO [address] [place] [address] Health Maintenance Due Date Last [...] on File Type Date Recorded Patient Financial Quantitative Analyst Expl 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
--- OUTSIDE RECORDS SUMMARY | 2023-07-25 05:02 | External Medical Summary | Summary of Care ---
Author Name Unknown Organization [place] [address] Care Team Providers Care Tire Bagger Name Role Phone Roger Alexandra MD Primary Care Provider [phone] [phone] Reason for Visit * Reason Onset Date Comments Medication Refill 03/24/2021 Encounter Details Date Type Department Care Team Description 03/24/2021 [facility] [address] [place] [address] [facility] [address] [place], [place] [address] Allergies Active Allergy Reactions Severity Noted Date [...] for Anxiety. 90 Tab 0 03/24/2021 Active LORazepam 0.5 MG Oral Tablet (Ativan) Take 1 Tab by mouth 3 times a day as needed for Anxiety. 90 Tab 0 02/26/2021 1 Discontinue d(Refill) LORazepam 0.5 MG Oral [...] encounter Miscellaneous Notes * Addendum Note - Alisha Gandhi DO - 03/24/2021 11:31 AM EDT Addended by: ALISHA GANDHI on: 03/24/2021 11:31 AM Modules accepted: Orders * Telephone Encounter - Alisha Gandhi DO - 03/24/2021 11:30 AM EDT We have been working on cutting down so I can't increase the medication. She could try taking 1 mg at night and just 0.5 mg in the morning (instead of 0.5 mg three times per day) * Telephone Encounter - Alisha Gandhi DO - 03/24/2021 11:29 AM EDT Signed Prescriptions: Disp Refills LORazepam 0.5 MG Oral Tablet (Ativan) 90 Tab 0 Sig: Take 1 Tab by mouth 3 times a day as needed for Anxiety. Authorizing Provider: ALISHA GANDHI * Telephone Encounter - Renata Quintana OSA - 03/24/2021 9:20 AM EDT Patient calling for refill on Ativan. Patient last seen on 03/05/2021 with return appointment scheduled for 04/29/2021. Patient had 0 cancelled appointments and 0 NO SHOW appointments. Medication was last filled on 02/26/2021 with 0 refills. Kimberly stated that she is hard time sleeping and very anxious. Asking if possible for an increasein dosage for the Ativan. documented in this encounter Plan of Treatment Upcoming Encounters Date Type Specialty Care Team Description 03/25/2021 [facility] [address] [facility] [place] [address] [phone] 04/29/2021 Telemedicine Psychiatry Alisha Gandhi, DO [address] [facility] [place] [address] Health Maintenance Due [...] on File Type Date Recorded Patient Building Architect Expl 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
--- OUTSIDE RECORDS SUMMARY | 2023-07-25 05:02 | External Medical Summary ---
Author Name Unknown Address Unknown Organization [facility] [address] [place] [id number] Laboratory Report Ordering Provider Test Date Status ANGELLA MARINELLI 03/24/2021 12:00:00 Final Observation Date Value Abnormality Reference (Units ) Status PT 03/24/2021 12:00:00 16.9 Above high normal 11 .5-14.6 (seconds) Final INR 03/24/2021 12:00:00 1.35 Above high normal 0. 84-1.14 Final Performing Location [facility] [address] [place] [id number]
--- OUTSIDE RECORDS SUMMARY | 2023-07-25 05:02 | External Medical Summary | Summary of Care ---
Author Name Unknown Organization [place] [address] Care Team Providers Care Wind Turbine Erector Name Role Phone Roger Alexandra MD Primary Care Provider [phone] [phone] Reason for Visit * Reason Onset Date Comments Medication Refill 03/24/2021 Encounter Details Date Type Department Care Team Description 03/24/2021 Refill [facility] [address] [place] [address] [facility] [address] [place], [place] [address] Allergies Active Allergy Reactions Severity Noted Date [...] Date Type Specialty Care Team Description 03/25/2021 [facility] [address] 60 [facility] [place] [address] [phone] 04/29/2021 Telemedicine Psychiatry Alisha Gandhi, DO [address] [facility] [place] [address] Health Maintenance Due [...] Documents on File Type Date Recorded Patient Library Circulation Clerk Expl 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
--- OUTSIDE RECORDS SUMMARY | 2023-07-25 05:02 | External Medical Summary | Summary of Care ---
Author Name Unknown Organization [place] [address] Care Team Providers Care Flange Turner Name Role Phone Jeevan Mclean MD Primary Care Provider [phone] [phone] Reason for Visit * Reason Onset Date Comments Medication Refill 03/27/2021 Encounter Details Date Type Department Care Team Description 03/27/2021 Refill Family Practice [facility] [address] [place] [id number] Jeevan Mclean MD 132 [facility] [place] [id number] Allergies Active Allergy Reactions Severity Noted Date Comments Aspirin Unknown 12/12/2007 von Willebrand's disease Salicylates 03/01/2000 von Willebrand's disease documented as of this encounter (statuses as of 03/27/2021) Medications Medication Sig Dispensed Refills Start Date [...] Anxiety. 60 Tab 3 03/24/2021 Active Nystatin 918831 UNIT/GM External Powder (Nystop) 1 harriet, Powder, Topical twice daily, 1 EA, 0 Refill(s), Indication: Candidiasis of Skin, Route to Pharmacy Electronically, [facility] [id number], [address], 10/02/20 10:43:00 EST, Height/Length Dosing, cm, 116.3, 10/02/20 10:43:00 EST, Weight Dosing, kg 15 g 1 03/27/2021 Active Nystatin 787111 UNIT/GM External Powder (Nystop) 1 harriet, Powder, Topical BID, 1 EA, 0 Refill(s), Indication: Candidiasis of Skin, Route to Pharmacy Electronically, [facility] - [id number], [address], 10/02/20 10:43:00 EST, Height/Length Dosing, cm, 116.3, 10/02/20 10:43:00 EST, Weight Dosing, kg 0 10/08/2020 1 Discontinue d(Refill) documented as of this encounter (statuses as of 03/27/2021) Active Problems Problem Noted Date PTSD (post-traumatic [...] as of this encounter (statuses as of 03/27/2021) Resolved Problems Problem Noted Date Resolved Date [...] 12/21/2008 Atrial septal aneurysm 02/04/2006 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 use 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 0 [...] as of this encounter (statuses as of 03/27/2021) Immunizations Name Administration Dates Next Due H1N1 [...] Encounter - Jeevan Mclean MD - 03/27/2021 12:08 PM EDT Signed Prescriptions: Disp Refills Nystatin 286237 UNIT/GM External Powder (N*15 g 1 Si harriet, Powder, Topical twice daily, 1 EA, 0 Refill(s), Indication: Candidiasis of Skin, Route to Pharmacy Electronically, [facility] - [id number], [address], 10/02/20 10:43:00 EST, Height/Length Dosing, cm, 116.3, 10/02/20 10:43:00 EST, Weight Dosing, k g Authorizing Provider: JEEVAN MCLEAN * Telephone Encounter - Effie Hope CPhT - 03/27/2021 8:20 AM EDT Pt calling in for an Rx that is not listed in her chart. Pt provided the following information. Pt is looking for and Rx for: Nystatin Powder Large bottle To use for a yeast infection under the skin of the stomach fold Last prescribed from a in the Hospital E [id number] Please review and approve if appropriate Thank You, Effie Hope CPhT Early Childhood Specialist [facility] 03/27/2021, 8:23 AM documented in this encounter Plan of Treatment Upcoming Encounters Date Type Specialty Care Team Description 04/03/2021 Laboratory Laboratory [facility] Mobile Home Draw [address] [place] [address] [phone] 04/04/2021 [facility] [address] [place] [address] [phone] 04/29/2021 Telemedicine Psychiatry Alisha Gandhi DO [address] [place] [address] Health Maintenance Due Date Last [...] Documents on File Type Date Recorded Patient Well Drill Operator Cable Tool Expl 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
--- OUTSIDE RECORDS SUMMARY | 2023-07-25 05:02 | External Medical Summary | Summary of Care ---
Author Name Unknown Organization [place] [address] Care Team Providers Care Nurse Quality Name Role Phone Jeevan Mclean MD Primary Care Provider [phone] Reason for Referral * Medication Prior Authorization (Routine) Status Reason Specialty Diagnoses / Procedures Referred By Contact Referred To Contact Pending Review Diagnoses Chronic bilateral low back pain without sciatica Jeevan Mclean MD 132 [facility] [place] [address] Electronically signed by Jeevan Mclean MD at Reason for Visit * Reason Onset Date Comments Medication Refill 03/27/2021 Encounter Details Date Type Department Care Team Description 03/27/2021 Refill Family Practice [facility] [address] [place] [address] Jeevan Mclean MD 132 [facility] [place] [address] [phone] Chronic bilateral low back pain without sciatica [...] 12/21/2008 Atrial septal aneurysm 02/04/2006 02/06/200 9 custodial current use of anticoagulant therapy [...] 50mg . Caller can be reached at [phone] patientwill be out of medication on WEDNESDAY. Thanks, Jacqui Sharma [facility] Pharmacy Refill Call Center :30 PM * Telephone Encounter - Aly Bryant RPh - 03/27/2021 1:00 PM EDT Pending Prescriptions: [...] Drug Monitoring Program in compliance with the [facility] regulations before prescribing a controlled substance. [...] due for refill: 03/29/21 Pharmacy: [id number] Is this request for a controlled [...] Thanks, Aly Bryant, Jose Alfredo.Ph. Clinical [facility] [phone] 03/27/2021,1:00 PM * Telephone Encounter - Effie [...] medication was ordered: 02/27/21 Pharmacy: [facility] [place] [address] Is this request for a controlled substance?Yes [...] [facility], Gml Mobile Home Draw [address] [place] [address] 04/04/2021 Anticoagulation Pharmacy Telepharmacy, [facility] [address] [place] [address] [phone] 04/29/2021 Telemedicine Psychiatry Alisha Gandhi DO [address] [place], [place] [id number] Health Maintenance Due Date Last Done Comments [...] Documents on File Type Date Recorded Patient Radio Message Router Expl 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
--- OUTSIDE RECORDS SUMMARY | 2023-07-25 05:02 | External Medical Summary | Summary of Care ---
Author Name Unknown Organization [place] [address] Care Team Providers Care Box Sealing Machine Operator Name Role Phone Roger Alexandra MD Primary Care Provider [phone] Reason for Visit * Reason Onset Date Comments Information 03/24/2021 Encounter Details Date Type Department Care Team Description 03/24/2021 Telephone Psychiatry, [place] [address] [place] [address] Alisha Gandhi, [address] [place] [address] Information Allergies Active Allergy Reactions Severity Noted [...] for Anxiety. 90 Tab 0 03/24/2021 Active documented as of this encounter [...] Encounter - Alisha Gandhi DO - 03/24/2021 12:14 PM EDT Agreed. She can't have the prescription sooner. She will need to wait until she is able to get it again * Telephone Encounter - GeriJasmin hummel OSA - 03/24/2021 11:59 AM EDT Rashel -pharmacist from [facility] [place] [employer] just called and stated that Kimberly is trying to get her Ativan from them, but that this is 10 days too soon. Rashel said that she picked this up last month on 03/04/21 and she should have enough until 04/03/20 and they will not give her this medication. Rashel said she has tried this in the past to get it way sooner then it should be. He said you call call him at [phone] if you need to discuss this with him. documented in this encounter Plan of Treatment Upcoming Encounters Date Type Specialty Care Team Description 03/25/20[facility] [address] [facility] [address] [phone] 04/29/2021 Telemedicine Psychiatry Alisha Gandhi, DO [address] [facility] [address] Health Maintenance Due Date Last Done [...] Documents on File Type Date Recorded Patient Carpenter Ship Expl 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
--- OUTSIDE RECORDS SUMMARY | 2023-07-25 05:03 | External Medical Summary | Summary of Care ---
Author Name Unknown Organization [place] [address] Care Team Providers Care Professional Fee Coder Name Role Phone Roger Alexandra MD Primary Care Provider [phone] Reason for Visit * Reason Onset Date Comments Letter Requests 03/16/2021 Status Check 03/18/2021 Encounter Details Date Type Department Care Team Description 03/16/2021 Telephone Family Practice [facility] [address] [place] [address] Roger Alexandra MD 132 [facility] [place] [address] Letter Requests; Status Check [...] a day. 60 Tab 2 03/05/2021 Active documented as of this encounter (statuses [...] encounter Miscellaneous Notes * Telephone Encounter - Myla Harris director compliance - 03/18/2021 9:14 AM EDT AJ from medical supply calling to check on status of rx and letter of necessity . Caller was requesting rx for attends and letter of necessity be faxed over again. Fax number is [phone]. Please advise. Thanks, Myla Harris [facility] Refill Call Center 03/18/2021,9:14 AM * Telephone Encounter - Angela May MED ASSIST - 03/16/2021 3:08 PM EDT Pricing exception form completed and faxed along with letter of necessity for Attends xl super absorb underwear. documented in this encounter Plan of Treatment Upcoming Encounters Date Type Specialty Care Team Description 03/24/2021 Laboratory Laboratory Processing Gm, [facility] Mobile Home Draw [address] [place] [address] 03/25/2021 [facility] [address] [place] [address] [phone] 04/29/2021 Telemedicine Psychiatry Alisha Gandhi, [address] [place], [place] [id number] Health Maintenance Due Date Last Done Comments [...] Documents on File Type Date Recorded Patient Parole Hearing Officer Expl 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
--- OUTSIDE RECORDS SUMMARY | 2023-07-25 05:03 | External Medical Summary | Summary of Care ---
Author Name Unknown Organization [facility] [place] [address] Care Team Providers Care Guide Excursion Name Role Phone Roger Alexandra MD Primary Care Provider [phone] Reason for Visit * Reason Onset Date Comments FYI 03/11/2021 GML pt not home Encounter Details Date Type Department Care Team Description 03/11/2021 Telephone Pharmacy Call Center [address] [place] [address] [facility] [address] [facility] [place] [address] [phone] FYI (GML pt not home) Allergies Active Allergy Reactions Severity Noted Date Comments Aspirin Unknown 12/12/2007 von Willebrand's disease Salicylates 03/01/2000 von Willebrand's disease documented as of this encounter (statuses as of 03/11/2021) Medications Medication Sig Dispensed Refills Start Date [...] as of this encounter (statuses as of 03/11/2021) Active Problems Problem Noted Date PTSD (post-traumatic [...] as of this encounter (statuses as of 03/11/2021) Resolved Problems Problem Noted Date Resolved Date [...] as of this encounter (statuses as of 03/11/2021) Immunizations Name Administration Dates Next Due H1N1 [...] Telephone Encounter - Kim Mercado RPh - 03/11/2021 9:55 AM EDT Received message patient wasn't home for GML. Per chart review, pt is scheduled for 03/17. Pt has weekly dose. [facility] will follow up once INR received. Kim Mercado Rph, Pharm.D. Clinical Pharmacist Telepharmacy 03/11/2021,9:56 AM documented in this encounter Plan of Treatment Upcoming Encounters Date Type Specialty Care Team Description 03/14/2021 Office Visit Family Medicine Roger Alexandra MD 132 [place] [address] [phone] 03/17/2021 Laboratory Laboratory Processing Gm, [facility] Mobile Home Draw [address] [place] [address] 03/17/2021 [facility] [address] [place] [address] [phone] 04/29/2021 Telemedicine Psychiatry Alisha Gandhi, [address] [place] [address] Health Maintenance Due Date Last [...] on File Type Date Recorded Patient Distribution System Operator Expl 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
--- OUTSIDE RECORDS SUMMARY | 2023-07-25 05:03 | External Medical Summary | Summary of Care ---
Author Name Unknown Organization [place] [address] Care Team Providers Care Life Tester Outboard Motors Name Role Phone Roger Alexandra MD Primary Care Provider [phone] Reason for Visit * Reason Comments Anxiety Depression Encounter Details Date Type Department Care Team Description 03/05/2021 Telemedicine Psychiatry, [facility] [address] [place] [address] Alisha Gandhi, DO [address] [facility] [place], [place] [id number] SIMA (generalized anxiety disorder)*; Major depressive disorder, recurrent episode, moderate (HCC) Allergies Active Allergy Reactions Severity Noted Date Comments Aspirin Unknown 12/12/2007 von Willebrand's disease Salicylates 03/01/2000 von Willebrand's disease documented as of this encounter (statuses as of 03/05/2021) Medications Medication Sig Dispensed Refills Start Date [...] as of this encounter (statuses as of 03/05/2021) Active Problems Problem Noted Date Body mass index (BMI) of 40.0 to 44.9 in adult 10/28/2020 Overview: Per Obesity protocol Grade I diastolic dysfunction 10/23/2020 Overview: Noted [...] severe 04/06/2007 SIMA (generalized anxiety disorder) 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 06/01/2005 Overview: ICD-10 update of inactive term Irritable bowel syndrome with diarrhea 0 04/13/2001 Tobacco use disorder documented as of this encounter (statuses as of 03/05/2021) Resolved Problems Problem Noted Date Resolved Date Hemiplegia 06/07/2020 10/14/2020 Venous stasis 04/16/2015 12/29/2019 [...] 02/04/2006 12/21/2008 Atrial septal aneurysm 02/04/2006 9 Carotid stenosis, non-symptomatic 03/16/2005 03/14/2007 Anticoagulation management [...] as of this encounter (statuses as of 03/05/2021) Immunizations Name Administration Dates Next Due H1N1 [...] this encounter Progress Notes * Alisha Gandhi, - 03/05/2021 10:00 AM EDT After connecting through [employer], patient was verified with two unique identifiers. Patient (or authorized legal customer engagement representative) was then informed that this was a Telemedicine visit and being conducted confidentially over secure lines. Methods to assure confidentiality were taken. Patient acknowledged consent and understanding of privacy and security of the Telemedicine visit. The patient agreed to participate. PSYCHOTHERAPY & MEDICATION MANAGEMENT [place] [address] 03/05/2021 Kimberly Kendall CHIEF COMPLAINT: Depression, anxiety, feeling very stressed INTERVAL HISTORY: Kimberly got sick last week. She was not tested for COVID. She has been spending most of her time at home. She has people that are visiting-- her granddaughter is her caregiver. Kimberly states that sometimes her mood is good and sometimes she has been feeling snappy. She states that it has been hard to be alone. Kimberly has been having a hard time sleeping. She denies taking naps. She is not very mobile. If she tries to walk she falls. She had 2 falls within the past fewweeks. Kimberly is taking Ativan 0.5 mg BID, Remeron 45 mg QHS and Seroquel 25 mg in the AM. She denies suicidal ideation/plan/intent. No HI/AVh. No paranoid ideations or delusions. OBJECTIVE DATA: [place]GE-SUICIDE SEVERITY RATING SCALE Have you ever wished [...] and reasons for living SIGECAPS: - Sleep: Not sleeping well - Interest: apathetic - Guilt: Yes - Energy: decreased - Concentration: ok - [...] Moderate or Pain, Severe. 90 Tab 0 LORazepam 0.5 MG Oral Tablet (Ativan) Take 1 Tab by mouth 3 times a day as needed for Anxiety. 90 Tab 0 Furosemide 20 MG Oral Tablet (Lasix) [...] by mouth at bedtime. 30 Tab 2 QUEtiapine Fumarate 25 MG Oral Tablet (SEROquel) Take 1 Tab by mouth 2 times a day as needed (Insomnia, high anxiety, paranoid thoughts). 60 Tab 2 Isosorbide Mononitrate ER 30 MG Oral Tablet Extended Release 24 Hour (Imdur) Take 1 Tab by mouth daily. 30 Tab 5 Albuterol Sulfate (2.5 MG/3ML) 0.083% Inhalation Nebulization Solution (PROVENTIL) Inhale 1 Vial via nebulizer every 4 hours as needed for Wheezing. 20 mL 1 hydrOXYzine HCl 50 MG Tablet Take 1 Tab by mouth 3 times a day as needed for Anxiety. 60 Tab 3 ondansetron (ZOFRAN) 4 MG Tablet Take 1 Tab by mouth every 8 hours as needed for Nausea. 15 Tab 0 Albuterol Sulfate (PROAIR HFA) 108 (90 Base) MCG/ACT AERS Inhale 2 Puffs by mouth 4 times a day. 18g 1 fluticasone (FLOVENT HFA) 110 MCG/ACT inhaler Inhale 2 Puffs by mouth 2 times a day. 36 g 3 guaiFENesin-codeine (ROBITUSSIN AC) 100-10 MG/5ML syrup Take 5 mL by mouth every 4 hours as needed for Cough. 120 mL 0 Cholestyramine Light (QUESTRAN LIGHT) 4 GM/DOSE POWD [...] -intact Insight:fair Judgment:fair FORMULATION: Kimberly Kendall is a89bf[age] old female with presenting symptoms ofdepression, anxiety, [...] helpful. Wellbutrin worsened anxiety and has been stopped ASSESSMENT- DIAGNOSIS:Major depressive disorder recurrent episode moderate Generalized Anxiety Disorder PTSD Bereavement PLAN: - Can take Hydroxyzine 50 mg BID PRN for anxiety. - Start Buspar 10 mg BID for anxiety. - Can take Ativan 0.5 mg TID PRN for. Discussed trying to not utilize this over Hydroxyzine and use this just as emergency rescue -ContinueRemeron 45 mgQHS to help with insomnia, depression and low appetite. -Strongly recommend therapy-therapy referral placed - I have reviewed the patients controlled substance dispensing history in the Prescription Drug Monitoring Program in compliance with the [facility] regulations before prescribing a controlled substance. [...] il licit drugs as these can make depression worse by blocking the effects of prescribed medications. Avoid tobacco, which contains nicotine. Limit caffeine use. Caffeine and Nicotine are stimulants thatcan cause difficulty with sleep. Lack of sleep can then worsen anxiety and depression. Return 6 weeks Risk/Benefits of Medication Discussed/Verbalized Understanding yes Time Spent on Visit: 30 minutes - including preparing to see the patient, reviewing history, performing evaluation, counseling/educating patient, ordering medications/tests, documenting clinical information. Please note >17 minutes of counseling time over and above medication management was spent with patient discussing self care and providing supportive therapy . Alisha Gandhi D.O. Psychiatry Attending 03/05/2021 documented in this encounter Plan of Treatment Upcoming Encounters Date Type Specialty Care Team Description 03/07/2021 Laboratory Laboratory Processing [facility], [facility] Mobile Home Draw [address] [place] [address] [phone] 03/07/2021 [facility] [address] [place] [address] [phone] 03/07/2021 Office Visit Family Medicine Roger Alexandra MD 132 [facility] [place] [address] [phone] 03/10/2021 Laboratory Laboratory Processing [facility], [facility] Mobile Home Draw [address] [place] [address] 04/29/2021 Telemedicine Psychiatry Alisha Gandhi DO [address] [place] [address] Health Maintenance Due Date Last Done Comments Zoster Vaccines (1 of 2) 2010 *DEPRESSION SCREENING,ANNUAL FOR PTS 12 AND OVER 04/11/2015 BREAST CANCER SCREENING DISCUSSION YEARLY AGES 40-75 10/28/2016 10/28/2015, 04/27/2014, 05/12/2013, Additional history exists DTaP,Tdap,and Td Vaccines (2 - Td) 06/27/2018 06/27/2008 *DISCUSS TOBACCO CESSATION (REFER TO SMARTSET #3291) 01/04/2020 *ADVANCE DIRECTIVE NOT ON FILE 03/08/2020 Influenza Vaccine (FLU shot) (#1) 2020 08/21/2015, 08/01/2014, 08/09/2013, Additional history exists LIPID SCREEN EVERY 5 YRS-WOMEN AGE 45-75 09/25/2020 09/25/2015, 02/14/2015, 05/01/2011, Additional history exists DIABETES SCREEN EVERY 3 [...] Documents on File Type Date Recorded Patient Benzol Operator Expl 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
--- OUTSIDE RECORDS SUMMARY | 2023-07-25 05:03 | External Medical Summary | Summary of Care ---
Author Name Unknown Organization [facility] [place] [address] Care Team Providers Care Welding Technician Name Role Phone Roger Alexandra MD Primary Care Provider [phone] Reason for Visit * Reason Onset Date Comments Letter Requests 03/16/2021 Status Check 03/18/2021 Encounter Details Date Type Department Care Team Description 03/16/2021 Telephone Family Practice [facility] [address] [place] [address] Roger Alexandra MD 132 [facility] [place] [address] Letter Requests; Status Check [...] encounter Miscellaneous Notes * Addendum Note - Angela Barksdale MED ASSIST - 03/18/2021 9:53 AM EDT Addended by: ANGELA BARKSDALE on: 03/18/2021 09:53 AM Modules accepted: Orders * Telephone Encounter - Myla Harris, per diem nurse - 03/18/2021 9:14 AM EDT AJ from medical supply calling to check on status of rx and letter of necessity . Caller was requesting rx for attends and letter of necessity be faxed over again. Fax number is [phone]. Please advise. Thanks, Myla Harris Primary Care Nurse Pharmacy Refill Call Center 03/18/2021,9:14 AM * Telephone Encounter - Angela Barksdale MED ASSIST - 03/16/2021 3:08 PM EDT Pricing exception form completed and faxed along with letter of necessity for Attends xl super absorb underwear. documented in this encounter Plan of Treatment Upcoming Encounters Date Type Specialty Care Team Description 03/24/2021 Laboratory Laboratory Processing [facility], [facility] Mobile Home Draw [address] [place], [place] [address] 03/25/2021 [facility] [address] [place] [address] [phone] 04/29/2021 Telemedicine Psychiatry Alisha Gandhi [address] [place], [place] [id number] Health Maintenance Due Date Last Done Comments [...] Documents on File Type Date Recorded Patient Md Pediatric Allergist Expl 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
--- OUTSIDE RECORDS SUMMARY | 2023-07-25 05:03 | External Medical Summary | Summary of Care ---
Author Name Unknown Organization [place] [address] Care Team Providers Care Pattern Shop Supervisor Name Role Phone Roger Alexandra MD Primary Care Provider [phone] Reason for Visit * Reason Onset Date Comments Letter Requests 03/16/2021 Encounter Details Date Type Department Care Team Description 03/16/2021 Telephone Family Practice [facility] [address] [place] [address] Roger Alexandra MD 132 [facility] [place] [address] Letter Requests Allergies Active Allergy Reactions Severity Noted Date Comments Aspirin Unknown 12/12/2007 von Willebrand's disease Salicylates 03/01/2000 von Willebrand's disease documented as of this encounter (statuses as of 03/16/2021) Medications Medication Sig Dispensed Refills Start Date [...] as of this encounter (statuses as of 03/16/2021) Active Problems Problem Noted Date PTSD (post-traumatic [...] as of this encounter (statuses as of 03/16/2021) Resolved Problems Problem Noted Date Resolved Date [...] as of this encounter (statuses as of 03/16/2021) Immunizations Name Administration Dates Next Due H1N1 [...] Encounters Date Type Specialty Care Team Description 03/17/2021 Laboratory Laboratory Processing [facility], [facility] Mobile Home Draw [address] [place] [address] [phone] 03/17/2021 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
--- OUTSIDE RECORDS SUMMARY | 2023-07-25 05:03 | External Medical Summary | Summary of Care ---
Author Name Unknown Organization [place] [address] Care Team Providers Care Synthetic Department Supervisor Name Role Phone Roger Alexandra MD Primary Care Provider [phone] Encounter Details Date Type Department Care Team Description 03/14/[address] [facility] 132 [facility] [place] [address] Roger Alexandra MD 132 [facility] [place] [address] [phone] Drug-seeking behavior* Allergies Active Allergy Reactions Severity Noted Date Comments Aspirin Unknown 12/12/2007 von Willebrand's disease Salicylates 03/01/2000 von Willebrand's disease documented as of this encounter (statuses as of 03/14/2021) Medications Medication Sig Dispensed Refills Start Date [...] as of this encounter (statuses as of 03/14/2021) Active Problems Problem Noted Date PTSD (post-traumatic [...] as of this encounter (statuses as of 03/14/2021) Resolved Problems Problem Noted Date Resolved Date [...] Per Lipid Taxonomy. CEREBROVASC DISEASE NEC 02/01/2004 02/14/20 20 Pelvic pain in female 03/26/2003 12/29/2019 OBESITY, UNSPECIFIED 07/19/2002 02/06/2010 Overview: Per Obesity Taxonomy Depression with anxiety 03/05/20 20 EXT ASTHMA W-O STAT ASTH 010 documented as of this encounter (statuses as of 03/14/2021) Immunizations Name Administration Dates Next Due H1N1 [...] of this encounter Progress Notes * Roger Alexandra MD - 03/14/2021 12:33 PM EDT Appointment was to be in person to obtain urine tox screen, however it was incorrectly rescheduled as a video visit. Will need in person visit scheduled. documented in this encounter Plan of Treatment Upcoming Encounters Date Type Specialty Care Team Description 03/17/2021 Laboratory Laboratory Processing [facility], [facility] Mobile Home Draw [address] [place] [address] 03/17/2021 [facility] [address] [facility] [place] [address] [phone] 04/29/2021 Telemedicine Psychiatry GandhiAlisha gonzalez, DO [address] [facility] [place] [address] [phone] Health Maintenance Due Date Last Done Comments [...] as of this encounter Visit Diagnoses Diagnosis Drug-seeking behavior- Primary Other, mixed, or unspecified nondependent drug abuse, unspecified documented in this encounter Advance Directives Documents on File Type Date Recorded Patient Assault Boat Coxswain Expl 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
--- OUTSIDE RECORDS SUMMARY | 2023-07-25 05:03 | External Medical Summary | Summary of Care ---
Author Name Unknown Organization [place] [address] Care Team Providers Care Image Consultant Name Role Phone Roger Alexandra MD Primary Care Provider [phone] [phone] Reason for Visit * Reason Comments eRx-Medication Refill Encounter Details Date Type Department Care Team Description 02/26/2021 Refill Family Practice [facility] [address] [facility] [place] [address] Alonso Chávez MD [address] [facility] [place] [address] [phone] Chronic bilateral low back pain without sciatica Allergies Active Allergy Reactions Severity Noted Date Comments Aspirin Unknown 12/12/2007 von Willebrand's disease Salicylates 03/01/2000 von Willebrand's disease documented as of this encounter (statuses as of 02/27/2021) Medications Medication Sig Dispensed Refills Start Date [...] for Anxiety. 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 06/01/2005 Overview: ICD-10 update of inactive term Irritable bowel syndrome with diarrhea 0 04/13/2001 Tobacco use disorder documented as of this encounter (statuses as of 02/27/2021) Resolved Problems Problem Noted Date Resolved Date [...] as of this encounter (statuses as of 02/27/2021) Immunizations Name Administration Dates Next Due H1N1 [...] encounter Miscellaneous Notes * Telephone Encounter - Chris Garcia [facility] - 02/27/2021 2:08 PM EDT Refused Prescriptions: Disp Refills traMADol HCl 100 MG Oral Tablet 90 Tab Sig: take 1 tablet by mouth every 8 hours if needed for MODERATE TO SEVERE PAINRefused By: CHRIS GARCIA RReason for Refusal: Duplicate Request documented in this encounter Plan of Treatment Upcoming Encounters Date Type Specialty Care Team Description 02/28/2021 Anticoagulation Pharmacy Telepharmacy, [facility] 58 60 [facility] [place] [address] [phone] 03/05/2021 Telemedicine Psychiatry Hiram Alisha Paty, DO [address] [facility] [place] [id number] 03/07/2021 Office Visit Family Medicine Roger Alexandra MD [address] [facility] [place] [address] [phone] Health Maintenance Due Date Last Done Comments [...] Documents on File Type Date Recorded Patient Search Specialist Expl 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
--- OUTSIDE RECORDS SUMMARY | 2023-07-25 05:03 | External Medical Summary ---
Author Name Unknown Address Unknown Organization K[facility] [address] [place] [id number] Laboratory Report Ordering Provider Test Date Status ANGELLA MARINELLI 03/17/2021 10:47:00 Final Observation Date Value Abnormality Reference (Units ) Status PT 03/17/2021 10:47:00 15.7 Above high normal 11 .5-14.6 (seconds) Final INR 03/17/2021 10:47:00 1.23 Above high normal 0. 84-1.14 Final Performing Location [facility] [place] [facility] [address] [place] [id number]
--- OUTSIDE RECORDS SUMMARY | 2023-07-25 05:03 | External Medical Summary | Summary of Care ---
Author Name Unknown Organization [place] [address] Care Team Providers Care Receivable Executive Name Role Phone Roger Alexandra MD Primary Care Provider +1 [phone] Encounter Details Date Type Department Care Team Description 03/16/2021 Telephone Family Practice [facility] 132 [facility] [place] [address] Roger Alexandra MD 132 [facility] [place] [address] [phone] Allergies Active Allergy Reactions Severity Noted Date [...] Care Team Description 03/17/2021 Laboratory Laboratory Processing [facility] Mobile Home Draw [address] [place] [address] [phone] 03/17/2021 [facility] [place] [address] [phone] 04/29/2021 Telemedicine Psychiatry Alisha Gandhi DO [address] [place], [place] [id number] Health Maintenance Due Date Last Done Comments [...] Documents on File Type Date Recorded Patient Materials Manager Expl 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
--- OUTSIDE RECORDS SUMMARY | 2023-07-25 05:03 | External Medical Summary ---
Author Name Unknown Address Unknown Organization K[facility] [address] [place] [id number] Laboratory Report Ordering Provider Test Date Status ANGELLA MARINELLI 03/07/2021 09:00:00 Final Observation Date Value Abnormality Reference (Units ) Status PT 03/07/2021 09:00:00 12.9 11.5-14.6 (seconds) Final INR 03/07/2021 09:00:00 0.97 0.84-1.14 Final Performing Location [facility] [address] [place] [id number]
--- OUTSIDE RECORDS SUMMARY | 2023-07-25 05:03 | External Medical Summary | Summary of Care ---
Author Name Unknown Organization [place] [address] Care Team Providers Care Cured Meats Supervisor Name Role Phone Roger Alexandra MD Primary Care Provider [phone] [phone] Reason for Visit * Reason Onset Date Comments Letter Requests 03/16/2021 Status Check 03/18/2021 Encounter Details Date Type Department Care Team Description 03/16/2021 Telephone Family Practice [facility] [address] [place] [address] Roger Alexandra MD 132 [facility] [place] [address] Letter Requests; Status Check [...] Notes * Telephone Encounter - Myla Harris city collector - 03/18/2021 9:14 AM EDT AJ from medical supply calling to check on status of rx and letter of necessity . Caller was requesting rx for attends and letter of necessity be faxed over again. Fax number is [phone]. Please advise. Thanks, Myla Harris Systems Engineer Pharmacy Refill Call Center 03/18/2021,9:14 AM * Telephone Encounter - Angela May MED ASSIST - 03/16/2021 3:08 PM EDT Pricing exception form completed and faxed along with letter of necessity for Attends xl super absorb underwear. documented in this encounter Plan of Treatment Upcoming Encounters Date Type Specialty Care Team Description 03/24/2021 Laboratory Laboratory Processing [facility], [facility] Mobile Home Draw [address] [place] [address] 03/25/2021 [facility] [address] [place] [address] [phone] 04/29/2021 Telemedicine Psychiatry Alisha Gandhi, [address] [place], [place] [id number] Health Maintenance Due Date Last Done Comments [...] on File Type Date Recorded Patient Financial Adviser Expl 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
--- OUTSIDE RECORDS SUMMARY | 2023-07-25 05:03 | External Medical Summary | Summary of Care ---
Author Name Unknown Organization [facility] Address [place] [address] Care Team Providers Care Qualifications Examiner Name Role Phone Roger Alexandra MD Primary Care Provider [phone] [phone] Reason for Visit * Reason Comments Appointment Encounter Details Date Type Department Care Team Description 02/28/2021 Anticoagulation Pharmacy Call Center [address] [place] [address] [facility] [address] 60 [facility] [place] [address] [phone] Cerebrovascular disease, arteriosclerotic, post-stroke* Allergies Active Allergy Reactions Severity Noted Date Comments Aspirin Unknown 12/12/2007 von Willebrand's disease Salicylates 03/01/2000 von Willebrand's disease documented as of this encounter (statuses as of 02/28/2021) Medications Medication Sig Dispensed Refills Start Date [...] as of this encounter (statuses as of 02/28/2021) Active Problems Problem Noted Date Body mass [...] severe 04/06/2007 SIMA (generalized anxiety disorder) 02/08 residential current use of anticoagulant t herapy 06/01/2005 Overview: ICD-10 update of inactive term Irritable bowel syndrome with diarrhea 0 04/13/2001 Tobacco use disorder documented as of this encounter (statuses as of 02/28/2021) Resolved Problems Problem Noted Date Resolved Date [...] as of this encounter (statuses as of 02/28/2021) Immunizations Name Administration Dates Next Due H1N1 [...] as of this encounter Progress Notes * Beth Kiran OSA - 02/28/2021 7:59 AM EDT Please draw PT/INR-Wednesday03/03/2021 Beth Kiran [facility] Asst I Kim Mercado documented in this encounter Plan of Treatment Upcoming Encounters Date Type Specialty Care Team Description 03/04/2021 [facility], [facility] 58 60 [facility] [place] [address] [phone] 03/05/2021 Telemedicine Psychiatry Alisha Gandhi, DO [address] [facility] [place] [address] 03/06/2021 Laboratory Laboratory Processing [facility], [facility] Mobile Home Draw [address] [facility] [place] [id number] 03/07/2021 Office Visit Family Medicine [facility]andra MD [facility] [place] [address] [phone] Health Maintenance Due Date Last Done Comments [...] Documents on File Type Date Recorded Patient Baler Operator Expl 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
--- OUTSIDE RECORDS SUMMARY | 2023-07-25 05:03 | External Medical Summary | Summary of Care ---
Author Name Unknown Organization [facility] Address [place] [address] Care Team Providers Care Accounts Collector Name Role Phone Roger Alexandra MD Primary Care Provider [phone] [phone] Reason for Visit * Reason Comments Dosage Adjustment Via Phone (anticoag Cl inic) Encounter Details Date Type Department Care Team Description 03/17/2021 Anticoagulation Pharmacy Call Center 58[address] [facility] [place] [address] Telepharmacy, [facility] 58 60 [facility] [address] [phone] snf current use of anticoagulant therapy* Allergies Active Allergy Reactions Severity Noted Date Comments Aspirin Unknown 12/12/2007 von Willebrand's disease Salicylates 03/01/2000 von Willebrand's disease documented as of this encounter (statuses as of 03/17/2021) Medications Medication Sig Dispensed Refills Start Date [...] as of this encounter (statuses as of 03/17/2021) Active Problems Problem Noted Date PTSD (post-traumatic [...] as of this encounter (statuses as of 03/17/2021) Resolved Problems Problem Noted Date Resolved Date [...] as of this encounter (statuses as of 03/17/2021) Immunizations Name Administration Dates Next Due H1N1 [...] Progress Notes * Luis Nava CPhT - 03/17/2021 3:39 PM EDT Contacts Type Contact Phone 03/17/2021 03:38 PM EDT Phone (Outgoing) Kimberly Kendall (Self) [phone] (M) Patient Findings Negatives: Signs/symptoms of thrombosis, [...] noted by Pharmacist: Yes Luis Nava CPhT 03/17/2021, 3:39 PM * Kim Mercado RPh - 03/17/2021 3:21 PM EDT Images from the original note were not included. Coumadin Clinic (region specific) Current Warfarin Dose As of 03/17/2021 Warfarin maintenance plan: 5 mg (10 mg x 0.5) every Wed, Fri; 10 mg (10 mg x 1) all other days INR Result As of 03/17/2021 INR goal: 2.0-3.0 INR used for dosin.23 (03/17/2021) Warfarin Plan As of 03/17/2021 Full warfarin instructions: 5/3: 20 mg; 5/4: 15 mg; Otherwise 5 mg every Wed, Fri; 10 mg all other days Next INR check: 03/24/2021 Repeat PT/INR in 1 week(s) Weekly dose: not changed, increased at last visit yet level barely moved. Suspected non-compliance.Will bolus x 2 and check in a week. Additional Dosing Information: Description [facility] Tech to contact patient with dose instructions as noted. 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
--- OUTSIDE RECORDS SUMMARY | 2023-07-25 05:03 | External Medical Summary | Summary of Care ---
Author Name Unknown Organization [facility] Address [place] [address] Care Team Providers Care Sizing End Bander Name Role Phone Roger Alexandra MD Primary Care Provider [phone] [phone] Reason for Visit * Reason Comments Dosage Adjustment Via Phone (anticoag Cl inic) Encounter Details Date Type Department Care Team Description 03/07/2021 Anticoagulation Pharmacy Call Center [address] [facility] [place] [address] Telepharmacy, [facility] 58 60 [facility] [place] [address] [phone] Cerebrovascular disease, arteriosclerotic, post-stroke* Allergies Active Allergy Reactions Severity Noted Date Comments Aspirin Unknown 12/12/2007 von Willebrand's disease Salicylates 03/01/2000 von Willebrand's disease documented as of this encounter (statuses as of 03/07/2021) Medications Medication Sig Dispensed Refills Start Date [...] as of this encounter (statuses as of 03/07/2021) Active Problems Problem Noted Date PTSD (post-traumatic [...] as of this encounter (statuses as of 03/07/2021) Resolved Problems Problem Noted Date Resolved Date [...] as of this encounter (statuses as of 03/07/2021) Immunizations Name Administration Dates Next Due H1N1 [...] Progress Notes * Heather Lora RPh - 03/07/2021 12:20 PM EDT Noted. Pt would prefer INR checked on 03/17 - Mobile lab already scheduled. Thanks, Heather Lora, PharmD, MS Clinical Pharmacist Telepharmacy 03/07/2021 12:20 PM * Luis Nava CPhT - 03/07/2021 11:48 AM EDT Contacts Type Contact Phone 03/07/2021 11:42 AM EDT Phone (Outgoing) Kimberly Kendall (Self) [phone] (M) Patient Findings Negatives: Signs/symptoms of thrombosis, [...] noted by Pharmacist: Yes Luis Nava CPhT 03/07/2021, 11:48 AM * Heather Lora RPh - 03/07/2021 11:19 AM EDT Images from the original note were not included. Coumadin Clinic (region specific) Current Warfarin Dose As of 03/07/2021 Warfarin maintenance plan: 5 mg (10 mg x 0.5) every Mon, Wed, Fri; 10 mg (10 mg x 1) all other days INR Result As of 03/07/2021 INR goal: 2.0-3.0 INR used for dosin.97 (03/07/2021) Warfarin Plan As of 03/07/2021 Full warfarin instructions: 03/07: 15 mg; 03/08: 15 mg; Otherwise 5 mg every Wed, Fri; 10 mg all other days Next INR check: 03/14/2021 Repeat PT/INR in 1 week(s) Weekly dose: increased Additional Dosing Information: Description [facility] Tech to contact patient with dose instructions as noted. Heather Lora RPh 03/07/2021, 11:19 AM documented in this encounter Plan of Treatment Upcoming Encounters Date Type Specialty Care Team Description 03/10/2021 Laboratory Laboratory Processing [facility] Mobile Home Draw [address] [place] [address] [phone] 03/14/2021 Office Visit Family Medicine Roger Alexandra MD [address] [facility] [place] [address] [phone] 03/17/2021 Laboratory Laboratory Processing [facility], [facility] Mobile Home Draw [address] [place] [address] [phone] 03/17/2021 [facility] [place] [address] [address] [place] [address] [phone] 04/29/2021 Telemedicine Psychiatry Alisha Gandhi DO [address] [place] [address] Health Maintenance Due Date Last Done Comments Zoster Vaccines (1 of 2) 2010 *DEPRESSION SCREENING,ANNUAL FOR PTS 12 AND OVER 04/11/2015 BREAST CANCER SCREENING DISCUSSION YEARLY AGES 40-75 10/28/2016 10/28/2015, 04/27/2014, 05/12/2013, Additional history exists DTaP,Tdap,and Td Vaccines (2 - Td) 06/27/2018 06/27/2008 *DISCUSS TOBACCO CESSATION (REFER TO SMARTSET #7851) 01/04/2020 *ADVANCE DIRECTIVE NOT ON FILE 03/08/2020 [...] on File Type Date Recorded 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
--- OUTSIDE RECORDS SUMMARY | 2023-07-25 05:03 | External Medical Summary | Summary of Care ---
Author Name Unknown Organization [place] [address] Care Team Providers Care Incoming Freight Clerk Name Role Phone Roger Alexandra MD Primary Care Provider [phone] [phone] Reason for Visit * Reason Onset Date Comments Advice 10/12/2020 Encounter Details Date Type Department Care Team Description 10/12/2020 Telephone Family Practice [facility] [address] [place] [address] Roger Alexandra MD 132 [facility] [place] [address] [phone] Advice Allergies Active Allergy Reactions Severity Noted [...] encounter Miscellaneous Notes * Telephone Encounter - Haley Dejesus LPN - 10/12/2020 4:17 PM EST Called the answering service, left message for weatherization director home health agent to return call to office. Please ask if there is anything that needs done right away for this patient(as in this weekend). Ifnot ok to wait for return call for Wednesday. score caller nurse called back, nothing needed at this time that she knows of, read entire message to her. States that she will tell them to call back tomorrow if there is something that is actually needed. * Telephone Encounter - Eboni Benitez OSA - 10/12/2020 3:44 PM EST Vic from [facility] calling stating the patient was discharged from [facility] and she saw the patient today. Gracie stating the pt's right lung sounds awful, rhonchi throughout. Patient does have COPD and asthma. Vic also stating on the patients abdomen there is an area that sticks out farther (around the size of a soft ball of volley ball). It is not tender but Vic wanted the office aware. Vic will call again on Wednesday to verify medications and will send over plan of care Please call vic and advise Phone: documented in this encounter Plan of Treatment Upcoming Encounters Date Type Specialty Care Team Description 03/07/2021 Office Visit Family Medicine Roger Alexandra MD [address] [place] [address] [phone] 03/07/2021 [facility] 58 60 [facility] [place] [address] [phone] 03/10/2021 Laboratory Laboratory Processing Gm, [facility] Mobile Home Draw [address] [place] [address] 04/29/2021 Telemedicine Psychiatry Alisha Gandhi, [address] [place] [address] Health Maintenance Due Date Last Done Comments Zoster Vaccines (1 of 2) 2010 *DEPRESSION SCREENING,ANNUAL FOR PTS 12 AND OVER 04/11/2015 BREAST CANCER SCREENING DISCUSSION YEARLY AGES 40-75 10/28/2016 10/28/2015, 04/27/2014, 05/12/2013, Additional history exists DTaP,Tdap,and Td Vaccines (2 - Td) 06/27/2018 06/27/2008 *DISCUSS TOBACCO CESSATION (REFER TO SMARTSET #8052) 01/04/2020 *ADVANCE DIRECTIVE NOT ON FILE 03/08/2020 [...] Documents on File Type Date Recorded Patient Bone Glue Maker Expl 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
--- OUTSIDE RECORDS SUMMARY | 2023-07-25 05:04 | External Medical Summary | Summary of Care ---
Author Name Unknown Organization [place] [address] Care Team Providers Care Roof Plumber Name Role Phone Roger Alexandra MD Primary Care Provider [phone] [phone] Reason for Visit * Reason Onset Date Comments case management 01/23/2021 Encounter Details Date Type Department Care Team Description 01/23/2021 Senior Maintenance Mechanic Telephone Care Coordination [address] [place] [address] Jelly Walters, [facility] case management Allergies Active Allergy Reactions Severity Noted Date Comments Aspirin Unknown 12/12/2007 von Willebrand's disease Salicylates 03/01/2000 von Willebrand's disease documented as of this encounter (statuses as of 01/23/2021) Medications Medication Sig Dispensed Refills Start Date [...] directed by anticoagulation pharmacist. 60 Tab 2 09/04/2020 Active Mirtazapine 30 MG Oral Tablet (REMERON) Take 1 Tab by mouth at bedtime. 30 Tab 1 09/16/2020 Active buPROPion HCl ER (XL) 150 MG Oral Tablet Extended Release 24 Hour (Wellbutrin XL) Take 1 Tab by mouth daily. 30 Tab 2 11/19/2020 Active Isosorbide Mononitrate ER 30 MG Oral Tablet Extended Release 24 Hour (Imdur) Take 1 Tab by mouth daily. 30 Tab 5 12/05/2020 Active Furosemide 20 MG Oral Tablet (Lasix) take 1 tablet by mouth once daily if needed (3LB WEIGHT GAIN OR LEG SWELLING) 30 Tab 1 12/12/2020 Active traMADol HCl 100 MG Oral TabletIndications:C hronic bilateral low back pain without sciatica Take 100 mg by mouth every 8 hours as needed for Pain, Moderate or Pain, Severe. 90 Tab 0 12/24/2020 Active LORazepam 0.5 MG Oral Tablet (Ativan) Take 1 Tab by mouth 2 times a day as needed for Anxiety. 60 Tab 0 01/17/2021 Active documented as of this encounter (statuses as of 01/23/2021) Active Problems Problem Noted Date Body mass [...] severe 04/06/2007 SIMA (generalized anxiety disorder) 02/08 USP current use of anticoagulant t herapy 06/01/2005 Overview: ICD-10 update of inactive term Irritable bowel syndrome with diarrhea 0 04/13/2001 Tobacco use disorder documented as of this encounter (statuses as of 01/23/2021) Resolved Problems Problem Noted Date Resolved Date [...] as of this encounter (statuses as of 01/23/2021) Immunizations Name Administration Dates Next Due H1N1 [...] encounter Miscellaneous Notes * Telephone Encounter - Jelly Walters LSW - 01/23/2021 11:31 AM EST Closing Case from [facility] at this time. Please re-refer if needs arise. Jelly Walters LCSW Call Center Coordinator-Behavioral Health [facility] Health Plan [email or web address] documented in this encounter Plan of Treatment Upcoming Encounters Date Type Specialty Care Team Description 01/24/2021 [facility] [address] [place] [address] [phone] 01/29/2021 Telemedicine Psychiatry Alisha Gandhi, DO [address] [place] [address] Health Maintenance Due Date Last [...] 10/17/2023 10/17/2020, 12/29/2019, 05/25/2016, Additional history exists COLONOSCOPY-EVERY 5 YRS AGES 18-100 11/12/2025 11/12/2020, 05/22/2013, 08/21/2011, Additional history exists Pneumococcal Vaccine: Pediatrics (0 to 5 Years) and At-Risk Patients (6 to 64 Years) Completed 03/20/2009 MENINGOCOCCAL (MENACTRA/MENVEO) Aged Out No longer eligible based on patient's age to complete this topic documented as of this encounter Implants Not on filedocumented as of this encounter Advance Directives Documents on File Type Date Recorded 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
--- OUTSIDE RECORDS SUMMARY | 2023-07-25 05:04 | External Medical Summary | Summary of Care ---
Author Name Unknown Organization [place] [address] Care Team Providers Care Microphone Boom Operator Name Role Phone Roger Alexandra MD Primary Care Provider [phone] Reason for Visit * Reason Onset Date Comments Medication Refill 02/26/2021 Encounter Details Date Type Department Care Team Description 02/26/2021 Refill [facility] [address] [place] [address] Alisha Gandhi, [address], [place] [id number] Allergies Active Allergy Reactions Severity Noted Date Comments Aspirin Unknown 12/12/2007 von Willebrand's disease Salicylates 03/01/2000 von Willebrand's disease documented as of this encounter (statuses as of 02/26/2021) Medications Medication Sig Dispensed Refills Start Date [...] at bedtime. 30 Tab 2 01/29/2021 Active traMADol HCl 100 MG Oral TabletIndications :Chronic bilateral low back pain without sciatica Take 100 mg by mouth every 8 hours as needed for Pain, Moderate or Pain, Severe. 90 Tab 0 01/30/2021 Active Warfarin Sodium 10 MG Oral Tablet Take 2 tablets on Wednesday and Wednesday, and 1.5 tablets all other days or as directed by anticoagulation pharmacist. 60 Tab 2 01/30/2021 Active Furosemide 20 MG Oral Tablet (Lasix) take 1 tablet by mouth once daily if needed (3LB WEIGHT GAIN OR LEG SWELLING) 30 Tab 2 02/09/2021 Active LORazepam 0.5 MG Oral Tablet (Ativan) Take 1 Tab by mouth 3 times a day as needed for Anxiety. 90 Tab 0 02/26/2021 Active LORazepam 0.5 MG Oral Tablet (Ativan) Take 1 Tab by mouth 3 times a day as needed for Anxiety. 90 Tab 0 01/29/2021 1 Discontinue d(Refill) documented as of this encounter (statuses as of 02/26/2021) Active Problems Problem Noted Date Body mass [...] as of this encounter (statuses as of 02/26/2021) Resolved Problems Problem Noted Date Resolved Date [...] as of this encounter (statuses as of 02/26/2021) Immunizations Name Administration Dates Next Due H1N1 [...] Telephone Encounter - Alisha Gandhi DO - 02/26/2021 1:54 PM EDT Signed Prescriptions: Disp Refills LORazepam 0.5 MG Oral Tablet (Ativan) 90 Tab 0 Sig: Take 1 Tab by mouth 3 times a day as needed for Anxiety. Authorizing Provider: ALISHA GANDHI * Telephone Encounter - Jasmin Nevarez OSA - 02/26/2021 1:40 PM EDT Pharmacy requesting refill on Ativan. Patient last seen on 01/29/21 with return appointment scheduled for 03/05/21. Patient had 0 cancelled appointments and 0 NO SHOW appointments. Medication was last filled on 01/30/20 with 0 refills. documented in this encounter Plan of Treatment Upcoming Encounters Date Type Specialty Care Team Description 02/27/2021 Laboratory Laboratory Processing [facility] [place] Draw [address] [place] [address] [phone] 02/28/2021 [facility] [address] [place] [address] [phone] 03/05/2021 Telemedicine Psychiatry Alisha Gandhi DO [address] [place] [address] 03/07/2021 Office Visit Family Medicine Roger Alexandra MD [address] [place] [address] Health Maintenance Due Date Last Done [...] Documents on File Type Date Recorded 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
--- OUTSIDE RECORDS SUMMARY | 2023-07-25 05:04 | External Medical Summary | Summary of Care ---
Author Name Unknown Organization [facility] [place] [address] Care Team Providers Care Die Repairer Stamping Name Role Phone Roger Alexandra MD Primary Care Provider [phone] Encounter Details Date Type Department Care Team Description 01/22/2021 Telephone Family Practice [facility] [address] [facility] [place] [address] Tracey Crouch PA-C [address] [facility] [place] [address] [phone] Allergies Active Allergy Reactions Severity Noted Date Comments Aspirin Unknown 12/12/2007 von Willebrand's disease Salicylates 03/01/2000 von Willebrand's disease documented as of this encounter (statuses as of 01/25/2021) Medications Medication Sig Dispensed Refills Start Date [...] as of this encounter (statuses as of 01/25/2021) Active Problems Problem Noted Date Body mass [...] severe 04/06/2007 SIMA (generalized anxiety disorder) 02/08 [facility] current use of anticoagulant t herapy 06/01/2005 Overview: ICD-10 update of inactive term Irritable bowel syndrome with diarrhea 0 04/13/2001 Tobacco use disorder documented as of this encounter (statuses as of 01/25/2021) Resolved Problems Problem Noted Date Resolved Date [...] as of this encounter (statuses as of 01/25/2021) Immunizations Name Administration Dates Next Due H1N1 [...] Miscellaneous Notes * Telephone Encounter - Tracey Crouch PA-C - 01/22/2021 8:36 AM EST 60 year old female with complicated medical history including a fib, COPD, cardiomyopathy, Von willebrand, O2 dependence complaining of chest pressure, shortness of breath and weakness. Absolutely not appropriate for telemedicine appointment. Recommend ER evaluation if worsening, otherwise, she must be seen in person. Will need 40 min appointment if in office I did advise her to call 911 and go to the ER but she declines. She wants to wait for her granddaughter documented in this encounter Plan of Treatment Upcoming Encounters Date Type Specialty Care Team Description 01/28/2021 Laboratory Laboratory Processing [facility] [place] Mobile Home Draw [address] [place] [address] [phone] 01/29/2021 Telemedicine Psychiatry Alisha Gandhi, [address] [place] [address] [phone] 01/30/2021 [facility] [address] [facility] [place] [address] [phone] Health Maintenance Due Date Last Done Comments [...] Documents on File Type Date Recorded 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
--- OUTSIDE RECORDS SUMMARY | 2023-07-25 05:04 | External Medical Summary ---
Author Name Unknown Address Unknown Organization K1F:LABORATORY [facility] - [address] [place] [address] Laboratory Report Ordering Provider Test Date Status STEFANI MARINELLI 02/12/2021 15:57:15 Final Observation Date Value Abnormality Reference (Units ) Status PT 02/12/2021 15:57:15 13.7 11.5-14.6 (seconds) Final INR 02/12/2021 15:57:15 1.04 0.84-1.14 Final Performing Location LABORATORY [facility] - [address] [place] [address]
--- OUTSIDE RECORDS SUMMARY | 2023-07-25 05:04 | External Medical Summary | Summary of Care ---
Author Name Unknown Organization [place] [address] Care Team Providers Care Stopper Grinder Name Role Phone Jeevan Mclean MD Primary Care Provider [phone] Reason for Visit * Reason Onset Date Comments Medication Refill 02/26/2021 Encounter Details Date Type Department Care Team Description 02/26/2021 Refill Family Practice [facility] [address] [place] [address] Alonso Chávez MD [address] [place] [address] [phone] Chronic bilateral low back pain without sciatica [...] Pain, Severe. 90 Tab 0 02/27/2021 Active traMADol HCl 100 MG Oral TabletIndications :Chronic bilateral low back pain without sciatica Take 100 mg by mouth every 8 hours as needed for Pain, Moderate or Pain, Severe. 90 Tab 0 01/30/2021 1 Discontinue d(Refill) documented as of this [...] severe 04/06/2007 SIMA (generalized anxiety disorder) 02/08 [facility] current use of anticoagulant t herapy 06/01/2005 [...] Telephone Encounter - Jeevan Mclean MD - 02/27/2021 10:55 AM EDT Signed Prescriptions: Disp Refills traMADol HCl 100 MG Oral Tablet 90 Tab 0 Sig: Take 100 mg by mouth every 8 hours as needed for Pain, Moderate or Pain, Severe. Authorizing Provider: JEEVAN MCLEAN * Telephone Encounter - Ben Macias, [facility] - 02/27/2021 10:31 AM EDT Pending Prescriptions: Disp Refills traMADol HCl 100 MG Oral Tablet 90 Tab 0 Sig: Take 100 mg by mouth every 8 hours as needed for Pain, Moderate or Pain, Severe. * Telephone Encounter - Ben Macias, [facility] - 02/27/2021 10:30 AM EDT I have reviewed the patients controlled substance dispensing history in the Prescription Drug Monitoring Program in compliance with the [facility] regulations before prescribing a controlled substance. PDMP checked on 02/27/2021. Pending Prescriptions: Disp Refills traMADol HCl 100 MG Oral Tablet 90 Tab 0 Sig: Take 100 mg by mouth every 8 hours as needed for Pain, Moderate or Pain, Severe. Last Office/Telemedicine Visit: 01/22/2021 Next Office Visit: 03/07/2021 Scheduled Provider(s): Jeevan Mclean MD Date medication was last filled: 01/31/21 Date medication is due for refill: 03/01/21 Pharmacy: [facility] [address] Is this request for a controlled substance?No Toxicology results: Results for orders placed or [...] in Results Review. Please approve if appropriate. Thanks and have a great day, Ben Macias Clinical Pharmacist Pharmacy Refill Call Center 02/27/2021, 10:30 AM * Telephone Encounter - Maria Isabel Bailey CPhT - 02/26/2021 8:29 AM EDT Pending Prescriptions: Disp Refills traMADol HCl 100 MG Oral Tablet 90 Tab 0 Sig: Take 100 mg by mouth every 8 hours as needed for Pain, Moderate or Pain, Severe. Last Office/Telemedicine Visit: 01/22/2021 Next Office Visit: 03/07/2021 Scheduled Provider(s): Jeevan Mclean MD If no future appointments scheduled, and last appointment is greater than a year ago, please schedule patient for a follow-up appointment Last date the medication was ordered: 01/30/21 Pharmacy: [id number] Is this request for a controlled [...] found in Results Review. Patient Phone Numbers [employer] [phone] Labs: Lab Results Component Value Date/Time CREAT [...] Specialty Care Team Description 02/28/20[facility] [address] [facility] [place] [address] [phone] 03/05/2021 Telemedicine Psychiatry Gandhi, Alisha Paty, DO [address] [facility] [place] [address] 03/07/2021 Office Visit Family Medicine Jeevan Mclean MD [address] [place] [address] [phone] Health Maintenance Due Date Last Done Comments [...] Documents on File Type Date Recorded 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
--- OUTSIDE RECORDS SUMMARY | 2023-07-25 05:04 | External Medical Summary | Summary of Care ---
Author Name Unknown Organization [facility] Address [place] [address] Care Team Providers Care Railroad Car Loader Name Role Phone Jeevan Mclean MD Primary Care Provider [phone] Reason for Visit * Reason Onset Date Comments Medication Refill 01/29/2021 Encounter Details Date Type Department Care Team Description 01/29/2021 Refill Family [facility] [address] [place] [address] Jeevan Mclean MD [address] [place] [address] [phone] Allergies Active Allergy Reactions Severity Noted Date Comments Aspirin Unknown 12/12/2007 von Willebrand's disease Salicylates 03/01/2000 von Willebrand's disease documented as of this encounter (statuses as of 01/30/2021) Medications Medication Sig Dispensed Refills Start Date [...] 12/12/2020 Active traMADol HCl 100 MG Oral TabletIndications :Chronic bilateral low back pain without sciatica Take 100 mg by mouth every 8 hours as needed for Pain, Moderate or Pain, Severe. 90 Tab 0 12/24/2020 Active QUEtiapine Fumarate 25 MG Oral Tablet (SEROquel) Take 1 Tab by mouth 2 times a day as needed (Insomnia, high anxiety, paranoid thoughts). 60 Tab 2 01/29/2021 Active LORazepam 0.5 MG Oral Tablet (Ativan) Take 1 Tab by mouth 3 times a day as needed for Anxiety. 90 Tab 0 01/29/2021 Active Mirtazapine 45 MG Oral Tablet (Remeron) Take 1 Tab by mouth at bedtime. 30 Tab 2 01/29/2021 Active Warfarin Sodium 10 MG Oral Tablet Take 2 tablets on Wednesday and Wednesday, and 1.5 tablets all other days or as directed by anticoagulation pharmacist. 60 Tab 2 01/30/2021 Active Warfarin Sodium 10 MG Oral Tablet Take 2 tablets on Wednesday and Wednesday, and 1.5 tablets all other days or as directed by anticoagulation pharmacist. 60 Tab 2 09/04/2020 1 Discontinue d(Refill) documented as of this encounter (statuses as of 01/30/2021) Active Problems Problem Noted Date Body mass [...] 04/06/2007 SIMA (generalized anxiety disorder) 02/08 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 current use of anticoagulant t herapy 06/01/2005 Overview: ICD-10 update of inactive term Irritable bowel syndrome with diarrhea 0 04/13/2001 Tobacco use disorder documented as of this encounter (statuses as of 01/30/2021) Resolved Problems Problem Noted Date Resolved Date [...] as of this encounter (statuses as of 01/30/2021) Immunizations Name Administration Dates Next Due H1N1 [...] Telephone Encounter - Alvarez Mueller RPh - 01/30/2021 11:18 AM EDT Signed Prescriptions: Disp Refills Warfarin Sodium 10 MG Oral Tablet 60 Tab 2 Sig: Take 2 tablets on Wednesday and Wednesday, and 1.5 tablets all other days or as directed by anticoagulation pharmacist.Authorizing Provider: JEEVAN MCLEAN User: ALVAREZ MUELLER * Telephone Encounter - Johanna Dhillon CPhT - 01/29/2021 1:00 PM EDT Pending Prescriptions: Disp Refills Warfarin Sodium 10 MG Oral Tablet 60 Tab 2 Sig: Take 2 tablets on Wednesday and Wednesday, and 1.5 tablets all other days or as directed by anticoagulation pharmacist. Last Office/Telemedicine Visit: 01/22/2021 Next Office Visit: No Future Appointments If no future appointments scheduled, and last appointment is greater than a year ago, please schedule patient for a follow-up appointment Last date the medication was ordered: 09/04/2020 Pharmacy: [id number] Is this request for a controlled [...] Encounters Date Type Specialty Care Team Description 01/31[facility] [address] [place] [address] [phone] 03/05/2021 Telemedicine Psychiatry Alisha Gandhi, DO [address] [facility] [address] Health Maintenance Due Date Last [...] Documents on File Type Date Recorded Patient Radiation Protection Technician Expl 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
--- OUTSIDE RECORDS SUMMARY | 2023-07-25 05:04 | External Medical Summary | Summary of Care ---
Author Name Unknown Organization [facility] Address [place] [address] Care Team Providers Care Press Feeder Broomcorn Name Role Phone Roger Alexandra MD Primary Care Provider [phone] Reason for Visit * Reason Comments Dosage Adjustment Via Phone (anticoag Cl inic) Encounter Details Date Type Department Care Team Description 02/13/2021 Anticoagulation Pharmacy Call Center [address] [facility] [place] [address] Telepharmacy, [facility] [address] [facility] [place] [address] [phone] custodial current use of anticoagulant therapy* Allergies Active Allergy Reactions Severity Noted Date Comments Aspirin Unknown 12/12/2007 von Willebrand's disease Salicylates 03/01/2000 von Willebrand's disease documented as of this encounter (statuses as of 02/13/2021) Medications Medication Sig Dispensed Refills Start Date [...] 01/29/2021 Active traMADol HCl 100 MG Oral TabletIndications:C [...] LEG SWELLING) 30 Tab 2 02/09/2021 Active documented as of this encounter (statuses as of 02/13/2021) Active Problems Problem Noted Date Body mass [...] severe 04/06/2007 SIMA (generalized anxiety disorder) 02/08 lobsterman current use of anticoagulant t herapy 06/01/2005 Overview: ICD-10 update of inactive term Irritable bowel syndrome with diarrhea 0 04/13/2001 Tobacco use disorder documented as of this encounter (statuses as of 02/13/2021) Resolved Problems Problem Noted Date Resolved Date [...] as of this encounter (statuses as of 02/13/2021) Immunizations Name Administration Dates Next Due H1N1 [...] Progress Notes * Luis Nava CPhT - 02/13/2021 3:58 PM EDT Contacts Type Contact Phone 02/13/2021 03:57 PM EDT Phone (Outgoing) Kimberly Kendall (Self) [phone] (M) Patient Findings Negatives: Signs/symptoms of thrombosis, [...] noted by Pharmacist: Yes Luis Nava CPhT 02/13/2021, 3:58 PM * Kim Mercado [facility] [place] - 02/13/2021 2:19 PM EDT Coumadin Clinic (region specific) Current Warfarin Dose As of 02/13/2021 Warfarin maintenance plan: 5 mg (10 mg x 0.5) every Mon, Wed, Fri; 10 mg (10 mg x 1) all other days INR Result As of 02/13/2021 INR goal: 2.0-3.0 INR used for dosin.04 (02/12/2021) Warfarin Plan As of 02/13/2021 Full warfarin instructions: 02/13: 15 mg; 02/14: 10 mg; Otherwise 5 mg every Mon, Wed, Fri; 10 mg all other days Next INR check: 02/19/2021 Repeat PT/INR in 1 week(s) Weekly dose: not changed Additional Dosing Information: Description GML Tech to contact patient with dose instructions as noted. Kim Mercado RPh 02/13/2021, 2:20 PM documented in this encounter Plan of Treatment Upcoming Encounters Date Type Specialty Care Team Description 02/20[facility] [address] [facility] [place] [address] [phone] 02/25/2021 Office Visit Family Medicine Roger Alexandra MD [address] [facility] [place] [address] 03/05/2021 Telemedicine Psychiatry [facility]isha Gandhi, DO [address] [facility] [address] Health Maintenance Due Date Last [...] Documents on File Type Date Recorded Patient Prescription Clerk Lenses Expl 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
--- OUTSIDE RECORDS SUMMARY | 2023-07-25 05:04 | External Medical Summary | Summary of Care ---
Author Name Unknown Organization [facility] Address [place] [address] Care Team Providers Care Clinical Research Coordinator Name Role Phone Roger Alexandra MD Primary Care Provider [phone] Reason for Visit * Reason Comments Appointment Encounter Details Date Type Department Care Team Description 02/21/2021 Anticoagulation Pharmacy Call Center [address] [facility] [place] [address] [facility] [address] [facility] [place] [address] [phone] Cerebrovascular disease, arteriosclerotic, post-stroke* Allergies Active Allergy Reactions Severity Noted Date Comments Aspirin Unknown 12/12/2007 von Willebrand's disease Salicylates 03/01/2000 von Willebrand's disease documented as of this encounter (statuses as of 02/21/2021) Medications Medication Sig Dispensed Refills Start Date [...] as of this encounter (statuses as of 02/21/2021) Active Problems Problem Noted Date Body mass [...] severe 04/06/2007 SIMA (generalized anxiety disorder) 02/08 halfway current use of anticoagulant t herapy 06/01/2005 Overview: ICD-10 update of inactive term Irritable bowel syndrome with diarrhea 0 04/13/2001 Tobacco use disorder documented as of this encounter (statuses as of 02/21/2021) Resolved Problems Problem Noted Date Resolved Date [...] as of this encounter (statuses as of 02/21/2021) Immunizations Name Administration Dates Next Due H1N1 [...] Progress Notes * Beth Kiran OSA - 02/21/2021 8:10 AM EDT Please draw PT/INR-Mon 02/24/2021 Beth Kiran [facility] Asst I Kim Mercado [facility] documented in this encounter Plan of Treatment Upcoming Encounters Date Type Specialty Care Team Description 02/25/2021 [facility] Tele[facility], [facility] [address] [facility] [place] [address] [phone] 02/25/2021 Office Visit Family Medicine Roger Alexandra MD [address] [facility] [place] [address] [phone] 02/27/2021 Laboratory Laboratory Processing [facility] [place] Mobile Home Draw [address] [place], [place] [address] 03/05/2021 Telemedicine Psychiatry Alisha Gandhi, DO [address] [place], [place] [address] Health Maintenance Due Date Last Done Comments [...] Documents on File Type Date Recorded Patient Returned Goods Sorter Expl 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
--- OUTSIDE RECORDS SUMMARY | 2023-07-25 05:04 | External Medical Summary | Summary of Care ---
Author Name Unknown Organization [place] [address] Care Team Providers Care Rn Training Name Role Phone Roger Alexandra MD Primary Care Provider [phone] Encounter Details Date Type Department Care Team Description 01/22/2021 Telemedicine Family Practice [facility] [address] [facility] [place] [address] Tracey Crouch PA-C [address] [facility] [place] [address] [phone] COPD, severe (HCC)*; Oxygen dependent; Idiopathic cardiomyopathy (HCC); Paroxysmal atrial fibrillation (HCC); Von Willebrand disease (HCC); Narcotic addiction (HCC); History of multiple strokes; longterm current use of anticoagulant therapy Allergies Active Allergy Reactions Severity Noted Date Comments Aspirin Unknown 12/12/2007 von Willebrand's disease Salicylates 03/01/2000 von Willebrand's disease documented as of this encounter (statuses as of 01/22/2021) Medications Medication Sig Dispensed Refills Start Date [...] as of this encounter (statuses as of 01/22/2021) Active Problems Problem Noted Date Body mass [...] severe 04/06/2007 SIMA (generalized anxiety disorder) 02/08 long term acute care registered nurse current use of anticoagulant t herapy 06/01/2005 Overview: ICD-10 update of inactive term Irritable bowel syndrome with diarrhea 0 04/13/2001 Tobacco use disorder documented as of this encounter (statuses as of 01/22/2021) Resolved Problems Problem Noted Date Resolved Date [...] as of this encounter (statuses as of 01/22/2021) Immunizations Name Administration Dates Next Due H1N1 [...] of this encounter Progress Notes * Tracey Crouch PA-C - 01/22/2021 8:27 AM EST Rhoda Kendall is a 60 year old female. No chief complaint on file. Unable to connect to video and switched to telephone visit Cough, fatigue, no appetite +weakness, dyspnea, No fevers +headaches No numbness, tingling, weakness Difficulty breathing. Is on oxygen but having worsening dyspnea HPI: HPI PMH: Patient Active Problem List Diagnosis Code Irritable bowel syndrome with diarrhea K58.0 longterm current use of anticoagulant therapy Z79.01 Tobacco use disorder F17.200 SIMA (generalized anxiety disorder) F41.1 COPD, severe (HCC) J44.9 Obstructive sleep apnea G47.33 Patent foramen [...] strokes Z86.73 Grade I diastolic dysfunction I51.9 Body mass index (BMI) of 40.0 to 44.9 in adult ([facility]) Z68.41 Current Outpatient Medications Medication Sig Dispense Refill LORazepam 0.5 MG Oral Tablet (Ativan) Take 1 Tab by mouth 2 times a day as needed for Anxiety. 60 Tab 0 traMADol HCl 100 MG Oral Tablet Take 100 mg by mouth every 8 hours as needed for Pain, Moderate or Pain, Severe. 90 Tab 0 Furosemide 20 MG Oral Tablet (Lasix) take 1 tablet by mouth once daily if needed (3LB WEIGHT GAIN OR LEG SWELLING) 30 Tab 1 Isosorbide Mononitrate ER 30 MG Oral Tablet Extended Release 24 Hour (Imdur) Take 1 Tab by mouth daily. 30 Tab 5 buPROPion HCl ER (XL) 150 MG Oral Tablet Extended Release 24 Hour (Wellbutrin XL) Take 1 Tab by mouth daily. 30 Tab 2 Mirtazapine 30 MG Oral Tablet (REMERON) Take 1 Tab by mouth at bedtime. 30 Tab 1 Warfarin Sodium 10 MG Oral Tablet Take [...] the day as needed and at bedtime Past Medical History: Diagnosis Date Back disorder [...] Moderate episode of recurrent major depressive disorder ([facility]) 03/05/2020 Morbid obesity due to excess calories ([facility]) 03/05/2020 Narcotic addiction ([facility]) 10/04/2014 Non compliance w medication regimen 10/14/2020 Oxygen dependent 12/29/2019 Paroxysmal atrial fibrillation ([facility]) 10/14/2020 Patent foramen ovale Schizoaffective disorder, chronic condition ([facility]) followed Dr Robby Diego [facility] Sequelae, post-stroke CVA Status asthmaticus Von Willebrand's disease ([facility]) Past Surgical History: Procedure Laterality Date COLONOSCOPY, DIAGNOSTIC (RECTUM) 11/12/2020 large adenomatous polyp, repeat 6 mo / [facility] COLONOSCOPY, W/BIOPSY 10/06/2010 adenomatous/repeat colonoscopy in 1 yr COLONOSCOPY, W/BIOPSY 05/22/2013 hyperplastic polyp EGD, FLEXIBLE, DIAGNOSTIC 02/26/2015 retained food/[facility] EGD, FLEXIBLE, DIAGNOSTIC 11/12/2020 Gastric submucosal mass / [facility] EGD, FLEXIBLE, DIAGNOSTIC 11/06/2020 gastritis / [facility] EGD, FLEXIBLE, W/BIOPSY 05/19/2013 EGD, W/ENDOSCOPIC US 11/05/2011 UPPER GI ENDOSCOPY ENDOSCOPIC ULTRASOUND performed by BERENICE ASHBY at [facility]COPY; REPAIR INITIAL INGUINAL HERNIA REMOVE GALLBLADDER TOTAL HYSTERECTOMY and bso Review of patient's allergies indicates: Allergen Reactions Aspirin Unknown von Willebrand's disease Salicylates von Willebrand's disease Family History Problem Relation Age of Onset Lung Disorder Mother copd Other (hepatitis) Mother Heart Disorder Father age 55 mu Mental Disorder Father schizophrenia Asthma Father Other (Other) Sister from sleep apnea Neurological Disorder Sister MR and epilepsy Other (Other) Son 2 sons von willebrand Other (Other) Daughter asd Family Status Relation Status Mo at age 64 Fa at age 55 Raven at age 25 Son Alive Son Alive Sis at age 41 Sis Alive MR Sis (Not Specified) Sis (Not Specified) Son (Not Specified) Raven (Not Specified) Social History Socioeconomic History Marital status: Spouse name: Not on file Number of children: 3 Years of education: Not on file Highest education level: Not on file Occupational History Not on file Social Needs Financial resource strain: Not on file Food insecurity Worry: Never true Inability: Never true Transportation needs Medical: Not on file Non-medical: Not on file Tobacco Use Smoking status: Current Every Day Smoker Packs/day: 0.25 Years: 32.00 Pack years: 8.00 Types: Cigarettes Last attempt to quit: 01/17/2015 Years since quittin.0 Smokeless tobacco: Never Used Tobacco comment: will [...] file Gets together: Not on file Attends hoahaoism service: Not on file Active member of [...] Narrative Not on file Vaping/E-Cigarette Use Vaping/E-Cigarette Substances Vaping/E-Cigarette Devices Review of Systems Constitutional: Positive for fatigue. Respiratory: Positive for cough, chest tightness and shortness of breath. Neurological: Positive for weakness and headaches. Objective There were no vitals taken for this visit. Physical Exam Vitals reviewed: no exam telephone only. ASSESSMENT/PLAN: very complicated, chronically ill 60 year old female complaining of weakness, headache, fatigue, chest tightness, dyspnea, cough Absolutely not appropriate for a telemedicine appointment The patient needs to be seen in person. I cannot even speculate a guess without having vital signs and examining this patient Patient advised with her symptoms to go to the ER. She states her granddaughter is her only ride and will not be home until 3:30. I did advised to call an ambulance but she declines At a minimum will need in person visit for exam COPD, severe (HCC) (Primary) Oxygen dependent Idiopathic cardiomyopathy (HCC) Paroxysmal atrial fibrillation (HCC) Von Willebrand disease (HCC) Narcotic addiction (HCC) History of multiple strokes long term acute care registered nurse current use of anticoagulant therapy After connecting to the patient via telephone, the patient was identified by name and date of . Patient was then informed that this was a telephone call only visit. The patient agreed to participate. Visit Disposition: Requires face to face/telemedicine follow-up (this telephonic visit is not billable) Total call duration was 6 minutes. Tracey Crouch PA-C documented in this encounter Plan of Treatment Upcoming Encounters Date Type Specialty Care Team Description 01/23/2021 Laboratory Laboratory Processing [facility], [facility] Mobile Home Draw [address] [place], [place] [id number] 01/24/2021 Anticoagulation Pharmacy [facility] [address] [place] [address] [phone] 01/29/2021 Telemedicine Psychiatry Alisha Gandhi, DO [address] [place] [address] Health Maintenance Due Date Last [...] of this encounter Visit Diagnoses Diagnosis COPD, severe (HCC)- Primary Chronic airway obstruction, not elsewhere classified Oxygen dependent Dependence on supplemental oxygen Idiopathic cardiomyopathy (HCC) Other primary cardiomyopathies Paroxysmal atrial fibrillation (HCC) Atrial fibrillation Von Willebrand disease (HCC) Von Willebrand's disease Narcotic addiction (HCC) Unspecified drug dependence, unspecified History of multiple strokes longterm current use of anticoagulant therapy documented in this encounter Advance Directives Documents on File Type Date Recorded Patient Gunstock Spray Unit Feeder Expl 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
--- OUTSIDE RECORDS SUMMARY | 2023-07-25 05:04 | External Medical Summary | Summary of Care ---
Author Name Unknown Organization [place] [address] Care Team Providers Care Wrapper Rewinder Name Role Phone Roger Mclean MD Primary Care Provider [phone] Reason for Visit * Reason Comments eRx-Medication Refill Encounter Details Date Type Department Care Team Description 02/08/[address] [facility] [address] [place] [address] Roger Mclean MD [address] [facility] [place] [address] [phone] Allergies Active Allergy Reactions Severity Noted Date Comments Aspirin Unknown 12/12/2007 von Willebrand's disease Salicylates 03/01/2000 von Willebrand's disease documented as of this encounter (statuses as of 02/09/2021) Medications Medication Sig Dispensed Refills Start Date [...] a day. 18 g 1 0 Active guaiFENesin-codei ne (ROBITUSSIN AC) 100-10 MG/5ML syrupIndications: Bronchitis, complicated Take 5 mL by mouth every 4 hours as needed for Cough. 120 mL 0 0 Active ondansetron (ZOFRAN) 4 MG Tablet Take 1 Tab by mouth every 8 hours as needed for Nausea. 15 Tab 0 0 Active hydrOXYzine HCl 50 MG Tablet Take 1 Tab by mouth 3 times a day as needed for Anxiety. 60 Tab 3 0 Active Albuterol Sulfate (2.5 MG/3ML) 0.083% Inhalation Nebulization Solution (PROVENTIL)Indica tions:Bronchitis, complicated,COPD, severe (HCC) Inhale 1 Vial via nebulizer every 4 hours as needed for Wheezing. 20 mL 1 0 Active Isosorbide Mononitrate ER 30 MG Oral Tablet Extended Release 24 Hour (Imdur) Take 1 Tab by mouth daily. 30 Tab 5 1 Active QUEtiapine Fumarate 25 MG Oral Tablet (SEROquel) Take 1 Tab by mouth 2 times a day as needed (Insomnia, high anxiety, paranoid thoughts). 60 Tab 2 1 Active LORazepam 0.5 MG Oral Tablet (Ativan) Take 1 Tab by mouth 3 times a day as needed for Anxiety. 90 Tab 0 1 Active Mirtazapine 45 MG Oral Tablet (Remeron) Take 1 Tab by mouth at bedtime. 30 Tab 2 1 Active traMADol HCl 100 MG Oral TabletIndications :Chronic bilateral low back pain without sciatica Take 100 mg by mouth every 8 hours as needed for Pain, Moderate or Pain, Severe. 90 Tab 0 1 Active Warfarin Sodium 10 MG Oral Tablet Take 2 tablets on Wednesday and Wednesday, and 1.5 tablets all other days or as directed by anticoagulation pharmacist. 60 Tab 2 1 Active Furosemide 20 MG Oral Tablet (Lasix) take 1 tablet by mouth once daily if needed (3LB WEIGHT GAIN OR LEG SWELLING) 30 Tab 2 1 Active Furosemide 20 MG Oral Tablet (Lasix) take 1 tablet by mouth once daily if needed (3LB WEIGHT GAIN OR LEG SWELLING) 30 Tab 1 1 02/10/20 21 Discontinued documented as of this encounter (statuses as of 02/09/2021) Active Problems Problem Noted Date Body mass [...] severe 04/06/2007 SIMA (generalized anxiety disorder) 02/08 alf current use of anticoagulant t herapy 06/01/2005 Overview: ICD-10 update of inactive term Irritable bowel syndrome with diarrhea 0 04/13/2001 Tobacco use disorder documented as of this encounter (statuses as of 02/09/2021) Resolved Problems Problem Noted Date Resolved Date [...] as of this encounter (statuses as of 02/09/2021) Immunizations Name Administration Dates Next Due H1N1 [...] Telephone Encounter - Jozef Maki RPh - 02/09/2021 1:57 PM EDT Signed Prescriptions: Disp Refills Furosemide 20 MG Oral Tablet (Lasix) 30 Tab 2 Sig: take 1 tabletby mouth once daily if needed (3LB WEIGHT GAIN OR LEG SWELLING)Authorizing Provider: Dakota MCLEAN User: JOZEF MAKI documented in this encounter Plan of Treatment Upcoming Encounters Date Type Specialty Care Team Description 02/13/2021 Laboratory Laboratory Processing [facility], [facility] [address] [facility] [id number] 02/14/2021 [facility] [address] [place] [address] [phone] 02/25/2021 Office Visit Family Medicine Roger Mclean MD [address] [facility] [place] [address] [phone] 03/05/2021 Telemedicine Psychiatry Hiram Alishatamar Newman, DO [address] [facility] [place] [address] [phone] Health Maintenance Due Date Last Done Comments [...] Documents on File Type Date Recorded Patient Community Outreach Manager Expl 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
--- OUTSIDE RECORDS SUMMARY | 2023-07-25 05:04 | External Medical Summary | Summary of Care ---
Author Name Unknown Organization [place] [address] Care Team Providers Care Coal Tower Operator Name Role Phone Roger Alexandra MD Primary Care Provider [phone] Reason for Visit * Reason Comments eRx-Medication Refill Encounter Details Date Type Department Care Team Description 01/29/2021 Refill Family Practice [facility] [address] [place] [address] Roger Alexandra MD [address] [facility] [place] [address] [phone] Chronic bilateral low back pain without sciatica [...] severe 04/06/2007 SIMA (generalized anxiety disorder) 02/08 exterminator helper termite current use of anticoagulant t herapy 06/01/2005 [...] Notes * Telephone Encounter - Yumiko Israel RPh - 01/30/2021 11:05 AM EDT Refused Prescriptions: Disp Refills traMADol HCl 100 MG Oral Tablet 90 Tab Sig: take 1 tablet by mouth every 8 hours if needed for moderate pain or severe painRefused By: Lorena ISRAEL for Refusal: Duplicate Request documented in this encounter Plan of Treatment Upcoming Encounters Date Type Specialty Care Team Description 01/31/2021 [facility] [address] [facility] [address] [phone] 03/05/2021 Telemedicine Psychiatry Alisha Gandhi, DO [address] [facility] [address] Health Maintenance Due Date Last [...] Documents on File Type Date Recorded Patient Sand Technologist Expl 

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
--- OUTSIDE RECORDS SUMMARY | 2023-07-25 05:04 | External Medical Summary | Summary of Care ---
Author Name Unknown Organization [place] [address] Care Team Providers Care Supervisory Historian Name Role Phone Roger Alexandra MD Primary Care Provider [phone] Reason for Visit * Reason Onset Date Comments Medication Refill 01/29/2021 Encounter Details Date Type Department Care Team Description 01/29/[address] [facility] [place] [address] [place] [address] Roger Alexandra MD [address] [place] [address] [phone] Chronic bilateral low back pain without sciatica [...] LEG SWELLING) 30 Tab 1 12/12/2020 Active QUEtiapine Fumarate 25 MG Oral Tablet [...] 60 Tab 2 09/04/2020 1 Discontinue d(Refill) traMADol HCl 100 MG Oral TabletIndications :Chronic bilateral low back pain without sciatica Take 100 mg by mouth every 8 hours as needed for Pain, Moderate or Pain, Severe. 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 06/01/2005 [...] encounter Miscellaneous Notes * Telephone Encounter - Alonso Eastman MD - 01/30/2021 2:13 PM EDT Signed Prescriptions: Disp Refills traMADol HCl 100 MG Oral Tablet 90 Tab 0 Sig: Take 100 mg by mouth every 8 hours as needed for Pain, Moderate or Pain, Severe.Authorizing Provider: ALONSO EASTMAN * Telephone Encounter - Kimberly Brooks OSA - 01/30/2021 2:10 PM EDT appt scheduled with pt * Telephone Encounter - Alonso Eastman MD - 01/30/2021 2:08 PM EDT Signed Prescriptions: Disp Refills traMADol HCl 100 MG Oral Tablet 90 Tab 0 Sig: Take 100 mg by mouth every 8 hours as needed for Pain, Moderate or Pain, Severe. Authorizing Provider: ALONSO EASTMAN * Telephone Encounter - Alonso Eastman MD - 01/30/2021 2:06 PM EDT Refill sent notify pt. Needs update urine tox (not ordered) / visit with PCP. Schedule 1 mo w/PCP in person * Telephone Encounter - Piedad Dumas LPN - 01/30/2021 1:58 PM EDT Pending Prescriptions: Disp Refills traMADol HCl 100 MG Oral Tablet 90 Tab 0 Sig: Take 100 mg by mouth every 8 hours as needed for Pain, Moderate or Pain, Severe. * Telephone Encounter - Luiza Olmos, fitter mechanic - 01/30/2021 1:54 PM EDT Patient is completely out of the medication. Patient calling to check on status of Tramadol. Caller can be reached at [phone]. Thank you, Luiza Olmos Hand Sewer Shoes Command Information 01/30/2021, 1:54 PM * Telephone Encounter - Yumiko Francisco, [facility] - 01/30/2021 11:06 AM EDT Pending Prescriptions: Disp Refills traMADol HCl 100 MG Oral Tablet 90 Tab 0 Sig: Take 100 mg by mouth every 8 hours as needed for Pain, Moderate or Pain, Severe. * Telephone Encounter - Yumiko Francisco RP - 01/30/2021 11:05 AM EDT I have reviewed the patients controlled substance dispensing history in the Prescription Drug Monitoring Program in compliance with the [facility] regulations before prescribing a controlled substance. PDMP checked on 01/30/2021. Pending Prescriptions: Disp Refills traMADol HCl 100 MG Oral Tablet 90 Tab 0 Sig: Take 100 mg by mouth every 8 hours as needed for Pain, Moderate or Pain, Severe. Last Office/Telemedicine Visit: 01/22/2021 Next Office Visit: No Future Appointments Date medication was last filled: 12/27/20 Date medication is due for refill: 01/25/21 [facility]: [id number] Is this request for a controlled [...] Results Review. Please approve if appropriate. Thanks, Yumiko Garcia, FabienneD Clinical Pharmacist Pharmacy Refill Call Center [phone] 01/30/2021,11:05 AM * Telephone Encounter - Johanna Dhillon CPhT - 01/29/2021 12:58 PM EDT Pending Prescriptions: Disp Refills traMADol [...] appointment Last date the medication was ordered: 12/24/2020 [facility]acy: [facility] [place] [address] Is this request for a controlled substance?Yes [...] Specialty Care Team Description 01/31/2021 [place] [address] [facility] [phone] 02/25/2021 Office Visit Family Medicine Roger Alexandra MD [address] [place] [address] [phone] 03/05/2021 Telemedicine Psychiatry Gandhi, Alisha Newman, DO [address] [facility] [address] [address] Health Maintenance Due Date Last Done [...] Documents on File Type Date Recorded Patient Media Operator Expl 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
--- OUTSIDE RECORDS SUMMARY | 2023-07-25 05:04 | External Medical Summary | Summary of Care ---
Author Name Unknown Organization [facility] Address [place] [address] Care Team Providers Care Enamel Pulverizer Name Role Phone Roger Alexandra MD Primary Care Provider [phone] Reason for Visit * Reason Comments Appointment Encounter Details Date Type Department Care Team Description 01/31/2021 Anticoagulation Pharmacy Call Center [address] [address] Tele[facility]acyFormerly [facility] 58 60 [facility] [place] [address] [phone] Anticoagulation management encounter* Allergies Active Allergy Reactions Severity Noted Date Comments Aspirin Unknown 12/12/2007 von Willebrand's disease Salicylates 03/01/2000 von Willebrand's disease documented as of this encounter (statuses as of 01/31/2021) Medications Medication Sig Dispensed Refills Start Date [...] anticoagulation pharmacist. 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 Will ask for it to be drawn on 02/04 Follow up for results. documented in this encounter Plan of Treatment Upcoming Encounters Date Type Specialty Care Team Description 02/05/2021 Anticoagulation Pharm[facility] Tele[facility]acy, [facility] [address] [facility] [address] [phone] 02/25/2021 Office Visit Family Medicine Roger Alexandra MD [address] [facility] [place] [address] [phone] 03/05/2021 Telemedicine Psychiatry Alisha Gandhi, DO [address] [place] [address] Health Maintenance Due Date Last [...] File Type Date Recorded Patient Marketing Strategy Manager Expl 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
--- OUTSIDE RECORDS SUMMARY | 2023-07-25 05:04 | External Medical Summary | Summary of Care ---
Author Name Unknown Organization [place] [address] Care Team Providers Care Millinery Department Manager Name Role Phone Roger Alexandra MD Primary Care Provider [phone] Reason for Visit * Reason Onset Date Comments Medication Refill 02/24/2021 tramadol too s oon Encounter Details Date Type Department Care Team Description 02/24/2021 Telephone Family Practice [facility] [address] [address] Roger Alexandra MD 132 [facility] [place] [address] [phone] Medication Refill (tramadol too soon) Allergies Active Allergy Reactions Severity Noted Date Comments Aspirin Unknown 12/12/2007 von Willebrand's disease Salicylates 03/01/2000 von Willebrand's disease documented as of this encounter (statuses as of 02/24/2021) Medications Medication Sig Dispensed Refills Start Date [...] as of this encounter (statuses as of 02/24/2021) Active Problems Problem Noted Date Body mass [...] severe 04/06/2007 SIMA (generalized anxiety disorder) 02/08 senior living current use of anticoagulant t herapy 06/01/2005 Overview: ICD-10 update of inactive term Irritable bowel syndrome with diarrhea 0 04/13/2001 Tobacco use disorder documented as of this encounter (statuses as of 02/24/2021) Resolved Problems Problem Noted Date Resolved Date [...] as of this encounter (statuses as of 02/24/2021) Immunizations Name Administration Dates Next Due H1N1 [...] Encounter - Cathryn Christopher PHARM Tech - 02/24/2021 4:05 PM EDT Pt is calling to request tramadol. It is too early to request this medication pt has been informed they should call back 02/26/21. Thank You, Cathryn Christopher [facility] Crew Member [employer] 02/24/2021, 4:05 PM documented in this encounter Plan of Treatment Upcoming Encounters Date Type Specialty Care Team Description 02/27/2021 Laboratory Laboratory Processing [facility], [facility] Mobile Home Draw [address] [place] [address] 02/28/2021 [facility] 58 60 [facility] [place] [address] [phone] 03/05/2021 Telemedicine Psychiatry Gandhi, Alisha Newman, DO [address] [facility] [place] [address] [phone] 03/07/2021 Office Visit Family Medicine Roger Alexandra MD [address] [facility] [place] [address] [phone] Health Maintenance Due Date Last Done Comments [...] Documents on File Type Date Recorded Patient Cooker Casing Expl 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
--- OUTSIDE RECORDS SUMMARY | 2023-07-25 05:04 | External Medical Summary | Summary of Care ---
Author Name Unknown Organization [facility] Address [place] [address] Care Team Providers Care Box Tender Name Role Phone Roger Alexandra MD Primary Care Provider [phone] Reason for Visit * Reason Comments Dosage Adjustment Via Phone (anticoag Cl inic) Encounter Details Date Type Department Care Team Description 01/24/2021 Anticoagulation Pharmacy Call Center [address] [facility] [place] [address] Telepharmacy, [facility] 58 60 [facility] [place] [address] [phone] Anticoagulation management encounter* Allergies Active Allergy Reactions Severity Noted Date Comments Aspirin Unknown 12/12/2007 von Willebrand's disease Salicylates 03/01/2000 von Willebrand's disease documented as of this encounter (statuses as of 01/24/2021) Medications Medication Sig Dispensed Refills Start Date [...] as of this encounter (statuses as of 01/24/2021) Active Problems Problem Noted Date Body mass [...] severe 04/06/2007 SIMA (generalized anxiety disorder) 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 06/01/2005 Overview: ICD-10 update of inactive term Irritable bowel syndrome with diarrhea 0 04/13/2001 Tobacco use disorder documented as of this encounter (statuses as of 01/24/2021) Resolved Problems Problem Noted Date Resolved Date [...] as of this encounter (statuses as of 01/24/2021) Immunizations Name Administration Dates Next Due H1N1 [...] as of this encounter Progress Notes * Joanna Linn OSA - 01/24/2021 8:03 AM EST GML needs rescheduled documented in this encounter Plan of Treatment Upcoming Encounters Date Type Specialty Care Team Description 01/29/2021 Telemedicine Psychiatry Alisha Gandhi, DO [address] [facility] [place] [id number] 01/30/2021 [facility] [address] [facility] [address] Health Maintenance Due Date Last [...] Documents on File Type Date Recorded Patient Glost Kiln Operator Expl 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
--- OUTSIDE RECORDS SUMMARY | 2023-07-25 05:05 | External Medical Summary | Summary of Care ---
Author Name Unknown Organization [place] [address] Care Team Providers Care Glass Breaker Name Role Phone Roger Alexandra MD Primary Care Provider [phone] Reason for Visit * Reason Onset Date Comments Medication Refill 12/12/2020 Medication Refill 12/26/2020 Encounter Details Date Type Department Care Team Description 12/12/2020 Refill [facility] [address] [place] [address] [facility] [address] [place], [place] [id number] Allergies Active Allergy Reactions Severity Noted Date Comments Aspirin Unknown 12/12/2007 von Willebrand's disease Salicylates 03/01/2000 von Willebrand's disease documented as of this encounter (statuses as of 12/26/2020) Medications Medication Sig Dispensed Refills Start Date End Date Status OXYGEN 4 L during the day as needed and at bedtime 0 5 Active albuterol-ipratr opium (DUONEB) 2.5-0.5 MG/3ML nebulizer solution Inhale 3 mL by mouth every 4 hours as needed for Shortness of Breath or Wheezing. 0 5 Active Acetaminophen (TYLENOL) 325 MG CAPS Take by mouth. 0 Active Cholestyramine Light (QUESTRAN LIGHT) 4 GM/DOSE POWDIndications: Colitis Take 1 Scoopful Dosing Unit by mouth 2 times a day. in 6oz of liquid . 210 g 3 0 Active fluticasone (FLOVENT HFA) 110 MCG/ACT inhalerIndicatio ns:Bronchitis, complicated Inhale 2 Puffs by mouth 2 times a day. 36 g 3 0 Active Albuterol Sulfate (PROAIR HFA) 108 (90 Base) MCG/ACT AERSIndications: Bronchitis, complicated Inhale 2 Puffs by mouth 4 times a day. 18 g 1 0 Active guaiFENesin-code ine (ROBITUSSIN AC) 100-10 MG/5ML syrupIndications :Bronchitis, complicated Take 5 mL by mouth every [...] Sulfate (2.5 MG/3ML) 0.083% Inhalation Nebulization Solution (PROVENTIL)Indic ations:Bronchiti s, complicated,COPD , severe (HCC) Inhale 1 Vial via nebulizer every 4 hours as needed for Wheezing. 20 mL 1 0 Active Warfarin Sodium 10 MG Oral Tablet Take 2 tablets on Wednesday and Wednesday, and 1.5 tablets all other days or as directed by anticoagulation pharmacist. 60 Tab 2 0 Active Mirtazapine 30 MG Oral Tablet (REMERON) Take 1 Tab by mouth at bedtime. 30 Tab 1 0 Active buPROPion HCl ER (XL) 150 MG Oral Tablet Extended Release 24 Hour (Wellbutrin XL) Take 1 Tab by mouth daily. 30 Tab 2 1 Active Isosorbide Mononitrate ER 30 MG Oral Tablet Extended Release 24 Hour (Imdur) Take 1 Tab by mouth daily. 30 Tab 5 1 Active LORazepam 0.5 MG Oral Tablet (Ativan) Take 1 Tab by mouth 2 times a day as needed for Anxiety. 60 Tab 0 1 Active Furosemide 20 MG Oral Tablet (Lasix) Take 1 Tab by mouth daily as needed (3 lb weight gain or leg swelling). 30 Tab 1 0 12/12/19 21 Discontinued LORazepam 0.5 MG Oral Tablet (Ativan) Take 1 Tab by mouth 2 times a day as needed for Anxiety. 60 Tab 0 1 12/12/19 21 Discontinued(Re fill) traMADol HCl 50 MG Oral Tablet (ULTRAM)Indicati ons:Chronic bilateral low back pain without sciatica Take 1 Tab by mouth 2 times a day as needed for Pain, Moderate or Pain, Severe. 60 Tab 0 1 12/17/19 21 Discontinued(Re fill) documented as of this encounter (statuses as of 12/26/2020) Active Problems Problem Noted Date Body mass [...] as of this encounter (statuses as of 12/26/2020) Resolved Problems Problem Noted Date Resolved Date [...] as of this encounter (statuses as of 12/26/2020) Immunizations Name Administration Dates Next Due H1N1 [...] Miscellaneous Notes * Telephone Encounter - Alisha Lilly DO, DO - 12/12/2020 2:06 PM EST Signed Prescriptions: Disp Refills LORazepam 0.5 MG Oral Tablet (Ativan) 60 Tab 0 Sig: Take 1 Tab by mouth 2 times a day as needed for Anxiety. Authorizing Provider: ALISHA GANDHI * Telephone Encounter - Jasmin Nevarez OSA - 12/12/2020 9:29 AM EST Patient calling for refill on Ativan. Patient last seen on 11/19/20 with return appointment scheduledfor 01/29/21. Patient had 0 cancelled appointments and 0 NO SHOW appointments. Medication was last filled on 11/18/20 with 0 refills. documented in this encounter Plan of Treatment Upcoming Encounters Date Type Specialty Care Team Description 01/02/2021 Laboratory [facility] Mobile Home Draw [address], [place] [id number] 01/03/2021 [facility] [address] [place] [address] [phone] 01/29/2021 Telemedicine Psychiatry Alisha Gandhi, [address] [place] [address] Health Maintenance [...] on File Type Date Recorded Patient News Cameraman Expl 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
--- OUTSIDE RECORDS SUMMARY | 2023-07-25 05:05 | External Medical Summary | Summary of Care ---
Author Name Unknown Organization [place] [address] Care Team Providers Care Shaft Headman Name Role Phone Roger Alexandra MD Primary Care Provider [phone] Reason for Visit * Reason Onset Date Comments Medication Refill 12/12/2020 Encounter Details Date Type Department Care Team Description 12/12/2020 Refill [facility] [address] [place], [place] [id number] Alisha Gandhi, [address] [place], [place] [id number] Allergies Active Allergy Reactions Severity Noted Date Comments Aspirin Unknown 12/12/2007 von Willebrand's disease Salicylates 03/01/2000 von Willebrand's disease documented as of this encounter (statuses as of 12/12/2020) Medications Medication Sig Dispensed Refills Start Date [...] at bedtime. 30 Tab 1 09/16/2020 Active Furosemide 20 MG Oral Tablet (Lasix) Take 1 Tab by mouth daily as needed (3 lb weight gain or leg swelling). 30 Tab 1 10/16/2020 Active buPROPion HCl ER (XL) 150 MG Oral Tablet Extended Release 24 Hour (Wellbutrin XL) Take 1 Tab by mouth daily. 30 Tab 2 11/19/2020 Active traMADol HCl 50 MG Oral Tablet (ULTRAM)Indicatio ns:Chronic bilateral low back pain without sciatica Take 1 Tab by mouth 2 times a day as needed for Pain, Moderate or Pain, Severe. 60 Tab 0 11/22/2020 Active Isosorbide Mononitrate ER 30 MG Oral Tablet Extended Release 24 Hour (Imdur) Take 1 Tab by mouth daily. 30 Tab 5 12/05/2020 Active LORazepam 0.5 MG Oral Tablet (Ativan) Take 1 Tab by mouth 2 times a day as needed for Anxiety. 60 Tab 0 12/12/2020 Active LORazepam 0.5 MG Oral Tablet (Ativan) Take 1 Tab by mouth 2 times a day as needed for Anxiety. 60 Tab 0 11/18/2020 Discontinue d(Refill) documented as of this encounter (statuses as of 12/12/2020) Active Problems Problem Noted Date Body mass [...] severe 04/06/2007 SIMA (generalized anxiety disorder) 02/08 half-way current use of anticoagulant t herapy 06/01/2005 Overview: ICD-10 update of inactive term Irritable bowel syndrome with diarrhea 0 04/13/2001 Tobacco use disorder documented as of this encounter (statuses as of 12/12/2020) Resolved Problems Problem Noted Date Resolved Date [...] as of this encounter (statuses as of 12/12/2020) Immunizations Name Administration Dates Next Due H1N1 [...] Telephone Encounter - Alisha Gandhi DO - 12/12/2020 2:06 PM EST Signed [...] Encounters Date Type Specialty Care Team Description 12/20/2020 [facility] [address] [place] [address] [phone] 01/29/2021 Telemedicine Psychiatry Hiram Alishatamar Newman, DO [address] [facility] [place] [address] Health Maintenance Due Date [...] Documents on File Type Date Recorded 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
--- OUTSIDE RECORDS SUMMARY | 2023-07-25 05:05 | External Medical Summary | Summary of Care ---
Author Name Unknown Organization [facility] Address [place] [address] Care Team Providers Care Cushion Worker Name Role Phone Roger Alexandra MD Primary Care Provider [phone] Reason for Visit * Reason Comments Dosage Adjustment Via Phone (anticoag Cl inic) Encounter Details Date Type Department Care Team Description 01/03/2021 Anticoagulation Pharmacy Call Center [address] [facility] [place] [address] Telepharmacy, [facility] 58 60 [facility] [place] [address] [phone] Anticoagulation management encounter* Allergies Active Allergy Reactions Severity Noted Date Comments Aspirin Unknown 12/12/2007 von Willebrand's disease Salicylates 03/01/2000 von Willebrand's disease documented as of this encounter (statuses as of 01/03/2021) Medications Medication Sig Dispensed Refills Start Date [...] LEG SWELLING) 30 Tab 1 12/12/2020 Active LORazepam 0.5 MG Oral Tablet (Ativan) Take 1 Tab by mouth 2 times a day as needed for Anxiety. 60 Tab 0 12/12/2020 Active traMADol HCl 100 MG Oral TabletIndications:C hronic bilateral low back pain without sciatica Take 100 mg by mouth every 8 hours as needed for Pain, Moderate or Pain, Severe. 90 Tab 0 12/24/2020 Active documented as of this encounter (statuses as of 01/03/2021) Active Problems Problem Noted Date Body mass [...] severe 04/06/2007 SIMA (generalized anxiety disorder) 02/08 [facility] current use of anticoagulant t herapy 06/01/2005 Overview: ICD-10 update of inactive term Irritable bowel syndrome with diarrhea 0 04/13/2001 Tobacco use disorder documented as of this encounter (statuses as of 01/03/2021) Resolved Problems Problem Noted Date Resolved Date [...] as of this encounter (statuses as of 01/03/2021) Immunizations Name Administration Dates Next Due H1N1 [...] Progress Notes * Joanna Linn OSA - 01/03/2021 8:56 AM EST GML rescheduled documented in this encounter Plan of Treatment Upcoming Encounters Date Type Specialty Care Team Description 01/08/2021 [facility] [address] [facility] [address] [phone] 01/29/2021 Telemedicine Psychiatry Alisha Gandhi, DO [address] [place] [address] Health Maintenance Due Date Last [...] Documents on File Type Date Recorded Patient Sandwich Maker Expl 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
--- OUTSIDE RECORDS SUMMARY | 2023-07-25 05:05 | External Medical Summary | Summary of Care ---
Author Name Unknown Organization [place] [address] Care Team Providers Care Speech Communication Instructor Name Role Phone Roger Alexandra MD Primary Care Provider [phone] Reason for Visit * Reason Onset Date Comments Medication Pre-auth 12/25/2020 Tramadol Encounter Details Date Type Department Care Team Description 12/25/2020 Telephone Family Practice [facility] [address] [place] [address] Roger Alexandra MD [address] [facility] [place] [address] [phone] Medication Pre-auth (Tramadol) Allergies Active Allergy Reactions Severity Noted Date [...] Encounter - Kim De Guzman LPN - 12/26/2020 1:49 PM EST Approval fax for Tramadol. Start of approval 12/24/20-until further notice. Fax stating approval put in for scanning. Pt aware. Called pharmacy, aware that med approved. * Telephone Encounter - Jacqui Sharma CPhT - 12/26/2020 10:26 AM EST Patient calling to check PA status for tramadol 100mg ,if not covered Patient was previously takingTramadol 50mg , can this be ordered and to take 2 tablets every 8 hours to possibly be covered on INS and for patient to be able to receive today Thanks, Jacqui Sharma Vp Transportation II Pharmacy Refill Call Center 110:31 AM * Telephone Encounter - Susana Velarde CMA - 12/25/2020 2:51 PM EST Did PA through CMM. * Telephone Encounter - Samantha Qureshi CPhT - 12/25/2020 10:54 AM EST Pt calling to inform doctor that the pt's insurance will not pay for this medication without a completed prior authorization. . Please complete with the following information: Patient name: Kimberly Kendall ID number: [id number] BIN number: [id number] PCN number: [id number] Group number: [id number] Subscriber name: Kimberly Kendall Primary or Secondary Insurance:Primary Medication: Tramadol Reason for Request: Non form Pharmacy: [facility] plan and phone number: Aamir [phone] What alternative medications does the pharmacy have in stock?: NA List of medications pt has tried and failed: [facility] Telepharmacy 12/25/2020, 10:54 AM documented in this encounter Plan of Treatment Upcoming Encounters Date Type Specialty Care Team Description 01/02/2021 Laboratory Laboratory Processing [facility] [place] Mobile Home Draw [address] [place] [address] 01/03/2021 [facility] [address] [place] [address] [phone] 01/29/2021 Telemedicine Psychiatry Alisha Gandhi DO [address] [place] [address] Health Maintenance Due Date Last [...] Documents on File Type Date Recorded 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
--- OUTSIDE RECORDS SUMMARY | 2023-07-25 05:05 | External Medical Summary | Summary of Care ---
Author Name Unknown Organization [place] [address] Care Team Providers Care Channel Partners Name Role Phone Ibrahima PEREZ MD, Jeevan Edwards Primary Care Provide r Reason for Visit * Reason Comments eRx-Medication Refill Encounter Details Date Type Department Care Team Description 12/11/2020 Refill Family Practice [facility] [address] [place] [address] Ibrahima PEREZ, Jeevan Edwards MD [address] [facility] [place] [address] [phone] Allergies Active Allergy Reactions Severity Noted Date [...] 6oz of liquid . 210 g 3 04/21/202 0 Active fluticasone (FLOVENT HFA) 110 MCG/ACT [...] mouth daily. 30 Tab 2 1 Active traMADol HCl 50 MG Oral Tablet (ULTRAM)Indicatio ns:Chronic bilateral low back pain without sciatica Take 1 Tab by mouth 2 times a day as needed for Pain, Moderate or Pain, Severe. 60 Tab 0 1 Active Isosorbide Mononitrate ER 30 MG Oral Tablet Extended Release 24 Hour (Imdur) Take 1 Tab by mouth daily. 30 Tab 5 1 Active Furosemide 20 MG Oral Tablet (Lasix) take 1 tablet by mouth once daily if needed (3LB WEIGHT GAIN OR LEG SWELLING) 30 Tab 1 1 Active Furosemide 20 MG Oral Tablet (Lasix) Take 1 Tab by mouth daily as needed (3 lb weight gain or leg swelling). 30 Tab 1 0 12/12/19 21 Discontinued documented as of this encounter [...] encounter Miscellaneous Notes * Telephone Encounter - Ibrahima PEREZ, Jeevan Edwards MD - 12/12/2020 4:34 PM EST Signed Prescriptions: Disp Refills Furosemide 20 MG Oral Tablet (Lasix) 30 Tab 1 Sig: take 1 tablet by mouth once daily if needed (3LB WEIGHT GAIN OR LEG SWELLING) Authorizing Provider: JEEVAN MCLEAN MD * Telephone Encounter - Kerry Reyes RP - 12/12/2020 2:59 PM EST Pending Prescriptions: Disp Refills Furosemide 20 MG Oral Tablet (Lasix) [Pha*30 Tab 1 Sig: take 1 tablet by mouth once daily if needed (3LB WEIGHT GAIN OR LEG SWELLING) * Telephone Encounter - Kerry Reyes RPh - 12/12/2020 2:59 PM EST Please approve if patient is to continue. Pending Prescriptions: Disp Refills Furosemide 20 MG Oral Tablet (Lasix) [Pha*30 Tab 1 Sig: take 1 tablet by mouth once daily if needed (3LB WEIGHT GAIN OR LEG SWELLING) Last Office/Telemedicine Visit: 11/29/2020 Next Office Visit: No Future Appointments If no future appointments scheduled, and last appointment is greater than a year ago, please schedule patient for a follow-up appointment Last date the medication was ordered: 10/16/20 Pharmacy: [facility] [id number] Is this request for a controlled [...] Specialty Care Team Description 12/20/2020 [facility] [address] [facility] [address] [phone] 01/29/2021 Telemedicine Psychiatry Maxx HOLLINS, Alisha Newman DO [address] [facility] [address] [address] Health Maintenance Due Date Last [...] Documents on File Type Date Recorded Patient Route Clerk Expl 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
--- OUTSIDE RECORDS SUMMARY | 2023-07-25 05:05 | External Medical Summary | Summary of Care ---
Author Name Unknown Organization [facility] Address [place] [address] Care Team Providers Care Galvanizer Zinc Name Role Phone Roger Alexandra MD Primary Care Provider [phone] Reason for Visit * Reason Comments Dosage Adjustment Via Phone (anticoag Cl inic) Encounter Details Date Type Department Care Team Description 12/20/2020 Anticoagulation Pharmacy Call Center [address] [place] [address] Telepharmacy, [facility] [address] [facility] [place] [address] [phone] Cerebrovascular disease, arteriosclerotic, post-stroke* Allergies Active Allergy Reactions Severity Noted Date Comments Aspirin Unknown 12/12/2007 von Willebrand's disease Salicylates 03/01/2000 von Willebrand's disease documented as of this encounter (statuses as of 12/20/2020) Medications Medication Sig Dispensed Refills Start Date [...] 60 Tab 0 12/12/2020 Active traMADol HCl 50 MG Oral Tablet (Ultram)Indications :Chronic bilateral low back pain without sciatica Take 1 Tab by mouth 2 times a day as needed for Pain, Moderate or Pain, Severe. 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 06/01/2005 Overview: ICD-10 update of inactive term Irritable bowel syndrome with diarrhea 0 04/13/2001 Tobacco use disorder documented as of this encounter (statuses as of 12/20/2020) Resolved Problems Problem Noted Date Resolved Date [...] as of this encounter (statuses as of 12/20/2020) Immunizations Name Administration Dates Next Due H1N1 [...] as of this encounter Progress Notes * Barbara Cevallos PHARM Student - 12/20/2020 9:36 AM EST Contacts Type Contact Phone 12/20/2020 09:36 AM EST Phone (Outgoing) Kimberly Kendall (Self) [phone] (M) Left Message Advised patient to contact Anticoagulation Clinic if any unusual bruising or bleeding, recent illness, changes in medication, or questions/concerns. PT/INR results, Coumadin dose instructions, and next PT/INR date communicated as noted by Pharmacist: Yes DANIEL Dodd Student 12/20/2020, 9:36 AM * Kim Mercado [facility] - 12/20/2020 9:34 AM EST Coumadin Clinic (region specific) Current Warfarin Dose As of 12/20/2020 Warfarin maintenance plan: 10 mg (10 mg x 1) every Tue, Christiana; 5 mg (10 mg x 0.5) all other days INR Result As of 12/20/2020 INR goal: 2.0-3.0 INR used for dosin.68 (12/19/2020) Warfarin Plan As of 12/20/2020 Full warfarin instructions: 12/20: 10 mg; Otherwise 10 mg every Sun, Tue, Christiana; 5 mg all other days Next INR check: 01/02/2021 Repeat PT/INR in 2 week(s) Weekly dose: not changed Additional Dosing Information: Description GML Tech to contact patient with dose instructions as noted. 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
--- OUTSIDE RECORDS SUMMARY | 2023-07-25 05:05 | External Medical Summary | Summary of Care ---
Author Name Unknown Organization [place] [address] Care Team Providers Care Dye House Vat Worker Name Role Phone Roger Alexandra MD Primary Care Provider [phone] Encounter Details Date Type Department Care Team Description 12/17/2020 Orders Only Lab Mobile Phlebotomy [facility] [address] [facility] [place], [place] [id number] Kim Mercado, [facility] [address] [place] [address] [phone] shelter (current) use of anticoagulants* Allergies Active Allergy Reactions Severity Noted Date Comments Aspirin Unknown 12/12/2007 von Willebrand's disease Salicylates 03/01/2000 von Willebrand's disease documented as of this encounter (statuses as of 12/17/2020) Medications Medication Sig Dispensed Refills Start Date [...] as of this encounter (statuses as of 12/17/2020) Active Problems Problem Noted Date Body mass [...] severe 04/06/2007 SIMA (generalized anxiety disorder) 02/08 shelter current use of anticoagulant t herapy 06/01/2005 Overview: ICD-10 update of inactive term Irritable bowel syndrome with diarrhea 0 04/13/2001 Tobacco use disorder documented as of this encounter (statuses as of 12/17/2020) Resolved Problems Problem Noted Date Resolved Date [...] as of this encounter (statuses as of 12/17/2020) Immunizations Name Administration Dates Next Due H1N1 [...] Encounters Date Type Specialty Care Team Description 12/18/2020 Laboratory Laboratory Processing [facility] Mobile Home Draw [address] [place] [id number] 12/20/2020 [facility] [address] [facility] [address] [phone] 01/29/2021 Telemedicine Psychiatry Alisha Gandhi, DO [address] [place] [address] Scheduled Orders Name Type Priority Associated Diagnoses Orde r Schedule PT INR Lab Routine shelter (current) use of anticoagulants Expected: 12/18/2020, Expires: 12/17/2021 Health Maintenance Due Date Last Done Comments [...] of this encounter Visit Diagnoses Diagnosis shelter (current) use of anticoagulants- Primary Long-term (current) use of anticoagulants documented in this encounter Advance Directives Documents on File Type Date Recorded 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
--- OUTSIDE RECORDS SUMMARY | 2023-07-25 05:05 | External Medical Summary ---
Author Name Unknown Address Unknown Organization K01:LABORATORY [facility] - [address] [facility] [address] [place] [address] Laboratory Report Ordering Provider Test Date Status SUMAN STANFORD 12/19/2020 11:33:36 Final Observation Date Value Abnormality Reference (Units ) Status PT 12/19/2020 11:33:36 20.0 Above high normal 11 .5-14.6 (seconds) Final INR 12/19/2020 11:33:36 1.68 Above high normal 0. 84-1.14 Final Performing Location LABORATORY [facility] - [address] [place] [address]
--- OUTSIDE RECORDS SUMMARY | 2023-07-25 05:05 | External Medical Summary | Summary of Care ---
Author Name Unknown Organization [place] [address] Care Team Providers Care Web Interface Developer Name Role Phone Roger Alexandra MD Primary Care Provider [phone] Reason for Visit * Reason Onset Date Comments Medication Refill 01/17/2021 Encounter Details Date Type Department Care Team Description 01/17/2021 Refill [facility] [address] [place] [address] Alisha Gandhi, [address] [place], [place] [id number] Allergies Active Allergy Reactions Severity Noted Date Comments Aspirin Unknown 12/12/2007 von Willebrand's disease Salicylates 03/01/2000 von Willebrand's disease documented as of this encounter (statuses as of 01/17/2021) Medications Medication Sig Dispensed Refills Start Date [...] for Anxiety. 60 Tab 0 01/17/2021 Active LORazepam 0.5 MG Oral Tablet (Ativan) Take 1 Tab by mouth 2 times a day as needed for Anxiety. 60 Tab 0 12/12/2020 Discontinue d(Refill) documented as of this encounter (statuses as of 01/17/2021) Active Problems Problem Noted Date Body mass [...] as of this encounter (statuses as of 01/17/2021) Resolved Problems Problem Noted Date Resolved Date [...] as of this encounter (statuses as of 01/17/2021) Immunizations Name Administration Dates Next Due H1N1 [...] Telephone Encounter - Alisha Gandhi DO - 01/17/2021 1:02 PM EST Signed Prescriptions: Disp Refills LORazepam 0.5 MG Oral Tablet (Ativan) 60 Tab 0 Sig: Take 1 Tab by mouth 2 times a day as needed for Anxiety. Authorizing Provider: ALISHA GANDHI * Telephone Encounter - Renata Quintana OSA - 01/17/2021 10:36 AM EST Patient calling for refill on Ativan. Patient last seen on 11/19/2020 with return appointment scheduled for 01/29/2021. Patient had 0 cancelled appointments and 0 NO SHOW appointments. Medication was last filled on 12/12/2020 with 0 refills. 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
--- OUTSIDE RECORDS SUMMARY | 2023-07-25 05:05 | External Medical Summary ---
Author Name Unknown Address Unknown Organization K01:LABORATORY [facility] - [address] [place] [address] Laboratory Report Ordering Provider Test Date Status STEFANI MARINELLI 01/09/2021 10:57:14 Final Observation Date Value Abnormality Reference (Units ) Status PT 01/09/2021 10:57:14 13.6 11.5-14.6 (seconds) Final INR 01/09/2021 10:57:14 1.03 0.84-1.14 Final Performing Location LABORATORY [facility] - [address] [place] [address]
--- OUTSIDE RECORDS SUMMARY | 2023-07-25 05:05 | External Medical Summary | Summary of Care ---
Author Name Unknown Organization [place] [address] Care Team Providers Care Arbor Press Operator Name Role Phone Roger Alexandra MD Primary Care Provider [phone] Reason for Visit * Reason Onset Date Comments Advice 10/16/2020 Encounter Details Date Type Department Care Team Description 10/16/2020 Telephone Family Practice [facility] [address] [place] [address] Roger Alexandra MD [address] [facility] [place] [address] [phone] Advice Allergies Active Allergy Reactions Severity Noted Date Comments Aspirin Unknown 12/12/2007 von Willebrand's disease Salicylates 03/01/2000 von Willebrand's disease documented as of this encounter (statuses as of 01/09/2021) Medications Medication Sig Dispensed Refills Start Date [...] at bedtime. 30 Tab 1 0 Active sertraline (ZOLOFT) 100 MG Tablet Take 1.5 Tabs by mouth daily. 45 Tab 2 0 10/22/20 20 Discontinued(Re fill) LORazepam 0.5 MG Oral Tablet (Ativan) Take 1 Tab by mouth 2 times a day as needed for Anxiety. 60 Tab 0 0 11/18/19 21 Discontinued(Re fill) Isosorbide Mononitrate ER 30 MG Oral Tablet Extended Release 24 Hour (IMDUR) Take 30 mg by mouth daily. 0 0 12/05/19 21 Discontinued(Re fill) Furosemide 20 MG Oral Tablet (Lasix) Take 1 Tab by mouth daily as needed (3 lb weight gain or leg swelling). 30 Tab 1 0 12/12/19 21 Discontinued documented as of this encounter (statuses as of 01/09/2021) Active Problems Problem Noted Date Body mass [...] as of this encounter (statuses as of 01/09/2021) Resolved Problems Problem Noted Date Resolved Date [...] as of this encounter (statuses as of 01/09/2021) Immunizations Name Administration Dates Next Due H1N1 [...] Telephone Encounter - Susana Velarde CMA - 10/16/2020 8:53 AM EST Called nurse and and let her know. Called pt and LM with message below. * Telephone Encounter - Roger Alexandra MD - 10/16/2020 8:19 AM EST No narcotics from us we've been over this with her multiple times. Will give a small amount of lasix to use as needed for edema. Sent to pharmacy. * Telephone Encounter - Gisel Giordano LPN - 10/16/2020 8:12 AM EST [facility] calling about patient. Saw patient last night, increased patient last night in left hip into lower back. Nothing visibly seen to be causing pain. Increase in pain started yesterday morning. Taking [place]wood 5-325mg that she believes she got from [facility] when she was in there. Almost out of this medication. Expiratory wheezing, which is common for her. Nebulizer coming today. Trace bilateral edema. Last week weight 157lb and last night was 159lb for Leila. Patient is requesting a "Water pill" Last Office/Telemedicine Visit: 10/14/2020 Please advise pain and edema. Appt, orders, scripts? Fax any orders to [phone] Call if need to [phone] documented in this encounter Plan of Treatment Upcoming Encounters Date Type Specialty Care Team Description 01/10/2021 Anticoagulation Pharmacy Telepharmacy, [facility] [address] [facility] [place] [address] [phone] 01/29/2021 Telemedicine Psychiatry Gandhi, Alisha Newman, DO [address] [facility] [place] [address] Health Maintenance Due [...] Documents on File Type Date Recorded Patient Electronic Engineering Draftsperson Expl 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
--- OUTSIDE RECORDS SUMMARY | 2023-07-25 05:05 | External Medical Summary | Summary of Care ---
Author Name Unknown Organization [place] [address] Care Team Providers Care Qa Automation Developer Name Role Phone Roger Alexandra MD Primary Care Provider [phone] [phone] Reason for Visit * Reason Onset Date Comments Advice 12/17/2020 Encounter Details Date Type Department Care Team Description 12/17/2020 Telephone Family Practice [facility] [address] [place] [address] Roger Alexandra MD [address] [place] [address] [phone] Advice Allergies Active Allergy Reactions Severity Noted [...] Active traMADol HCl 50 MG Oral Tablet (Ultram)Indicatio ns:Chronic bilateral low back pain without sciatica Take 1 Tab by mouth 2 times a day as needed for Pain, Moderate or Pain, Severe. 60 Tab 0 12/17/2020 Active traMADol HCl 50 MG Oral Tablet (ULTRAM)Indicatio ns:Chronic bilateral low back pain without sciatica Take 1 Tab by mouth 2 times a day as needed for Pain, Moderate or Pain, Severe. 60 Tab 0 11/22/2020 Discontinue d(Refill) documented as of this encounter [...] severe 04/06/2007 SIMA (generalized anxiety disorder) 02/08 emt intermediate current use of anticoagulant t herapy 06/01/2005 [...] Telephone Encounter - Aura Damico LPN - 12/17/2020 12:38 PM EST Pending Prescriptions: Disp Refills traMADol HCl 50 MG Oral Tablet (Ultram) 60 Tab 0 Sig: Take 1 Tab by mouth 2 times a day as needed for Pain, Moderate or Pain, Severe. Last Office/Telemedicine Visit: 11/29/2020 Next Office Visit: No Future Appointments Last date the medication was ordered: 11/22/20 (see message below) Patient Active Problem List Diagnosis Code Irritable bowel syndrome with diarrhea K58.0 shelter current use of anticoagulant therapy Z79.01 Tobacco [...] (BMI) of 40.0 to 44.9 in adult (HCC) Z68.41 Labs: CREATININE(mg/dL) [place]aina Dt/Tm Resulted Value Status 10/17/20 3:40P 10/18/20 0.7 FINAL POTASSIUM(mmol/L) [place]aina Dt/Tm Resulted Value Status 10/17/20 3:40P 10/18/20 4.6 FINAL TSH(uIU/mL) Naina Dt/Tm Resulted Value Status 12/29/19 10:22A 12/29/19 0.66 FINAL LDL (CALCULATED)-OUTSIDE LAB(mg/dl) [place]aina Dt/Tm Resulted Value Status 09/25/15 10/01/15 99 FINAL LDL (DIRECT MEASURE)(mg/dL) Naina Dt/Tm Resulted Value Status 02/14/15 9:27A 02/14/15 138* FINAL ALT(U/L) Naina Dt/Tm Resulted Value Status 12/29/19 10:22A 12/29/19 6* FINAL Hemoglobin AIC Results: HEMOGLOBIN, A1C(%) Naina Dt/Tm Resulted Value Status 04/19/14 12:08P 04/19/14 5.7 FINAL 09/10/99 4:45P 09/12/99 5.9 FINAL 01/10/99 11:30A 01/12/99 6.0 FINAL * Telephone Encounter - Kimberly Tilley OSA - 12/17/2020 11:03 AM EST Patient calling, is in need of her Tramadol- she is out. Is asking if this can be prescribed today,to the [facility] documented in this encounter Plan of Treatment Upcoming Encounters Date Type Specialty Care Team Description 12/20/2020 [facility], [facility] [address] [place] [address] [phone] 01/29/2021 Telemedicine Psychiatry Alisha Gandhi, DO [address] [place] [address] Health Maintenance Due Date Last [...] Documents on File Type Date Recorded Patient Administrative Support Manager Expl 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
--- OUTSIDE RECORDS SUMMARY | 2023-07-25 05:05 | External Medical Summary | Summary of Care ---
Author Name Unknown Organization [place] [address] Care Team Providers Care Supervisor Feed House Name Role Phone Roger Alexandra MD Primary Care Provider [phone] [phone] Encounter Details Date Type Department Care Team Description 12/24/2020 Telemedicine Family Practice [facility] [address] [facility] [place] [address] Roger Alexandra MD [address] [facility] [place] [address] [phone] Chronic bilateral low back pain without sciatica* Allergies Active Allergy Reactions Severity Noted Date Comments Aspirin Unknown 12/12/2007 von Willebrand's disease Salicylates 03/01/2000 von Willebrand's disease documented as of this encounter (statuses as of 12/24/2020) Medications Medication Sig Dispensed Refills Start Date [...] LEG SWELLING) 30 Tab 1 1 Active LORazepam 0.5 MG Oral Tablet (Ativan) Take 1 Tab by mouth 2 times a day as needed for Anxiety. 60 Tab 0 1 Active traMADol HCl 100 MG Oral TabletIndications :Chronic bilateral low back pain without sciatica Take 100 mg by mouth every 8 hours as needed for Pain, Moderate or Pain, Severe. 90 Tab 0 1 Active traMADol HCl 50 MG Oral Tablet (Ultram)Indicatio ns:Chronic bilateral low back pain without sciatica Take 1 Tab by mouth 2 times a day as needed for Pain, Moderate or Pain, Severe. 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 After connecting through televideo, patient was verified with two unique identifiers. Patient (or authorized legal labor union business representative) was then informed that this was a Telemedicine visit and being conducted confidentially over secure lines. Methods to assure confidentiality were taken. Patient acknowledged consent and understanding of privacy and security of the Telemedicine visit. The patient agreed to participate. SUBJECTIVE: Kimberly Kendall is a 60 year old female. No chief complaint on file. HPI: Medically complex 60 year old female I'm seeing via video for "right leg pain worse than usual." Noswelling. Pain increased a few days ago. I told her that it's very difficult if not impossible for me to evaluate the cause of her leg pain in video form. I am going to slightly increase her pain medication for a couple of days to see how she does. I reviewed indications to call 911. Patient Active Problem List Diagnosis Code Irritable bowel syndrome with diarrhea K58.0 market analyst current use of anticoagulant therapy Z79.01 Tobacco use disorder F17.200 SIMA (generalized anxiety disorder) F41.1 COPD, severe (HCC) J44.9 Obstructive sleep apnea G47.33 Patent foramen ovale Q21.1 Von Willebrand disease (HCC) D68.0 Idiopathic cardiomyopathy ([facility]) I42.8 Narcotic addiction ([facility]) F11.20 Acquired hypothyroidism E03.9 Oxygen dependent Z99.81 Moderate episode of recurrent major depressive disorder ([facility]) F33.1 Morbid obesity due to excess calories ([facility]) E66.01 Non compliance w medication regimen Z91.14 Chronic bilateral low back pain without sciatica M54.5, G89.29 Paroxysmal atrial fibrillation ([facility]) I48.0 Drug-seeking behavior Z76.5 History of multiple strokes Z86.73 Grade I diastolic dysfunction I51.9 Body mass index (BMI) of 40.0 to 44.9 in adult ([facility]) Z68.41 Current Outpatient Medications Medication Sig Dispense Refill traMADol HCl 100 MG Oral Tablet Take 100 mg by mouth every 8 hours as needed for Pain, Moderateor Pain, Severe. 90 Tab 0 Furosemide 20 MG Oral Tablet (Lasix) take 1 tablet by mouth once daily if needed (3LB WEIGHT GAIN OR LEG SWELLING) 30 Tab 1 LORazepam 0.5 MG Oral Tablet (Ativan) Take 1 Tab by mouth 2 times a day as needed for Anxiety. 60 Tab 0 Isosorbide Mononitrate ER 30 MG [...] Willebrand's disease Salicylates von Willebrand's disease OBJECTIVE: There were no vitals taken for this visit. Gen: nad ASSESSMENT AND PLAN: (M54.5, G89.29) Chronic bilateral low back pain without sciatica Plan: traMADol HCl 100 MG Oral Tablet Follow up as needed. No other complaints were offered at this time. Roger Alexandra MD documented in this encounter Plan of Treatment Upcoming Encounters Date Type Specialty Care Team Description 01/02/2021 Laboratory Laboratory Processing [facility] Home Draw [address] [place] [address] 01/03/2021 [facility] [address] [place] [address] [phone] 01/29/2021 Telemedicine Psychiatry Alisha Gandhi DO [address] [place] [address] Health Maintenance Due Date Last [...] Diagnosis Chronic bilateral low back pain without sciatica- Primary documented in this encounter Advance Directives Documents on File Type Date Recorded Patient Domestic Maid Expl 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
--- OUTSIDE RECORDS SUMMARY | 2023-07-25 05:05 | External Medical Summary | Summary of Care ---
Author Name Unknown Organization [place] [address] Care Team Providers Care Qa Tester Name Role Phone Roger Alexandra MD Primary Care Provider [phone] [phone] Encounter Details Date Type Department Care Team Description 01/22/2021 Telemedicine Family Practice [facility] [address] [facility] [place] [address] Tracey Crouch PA-C [address] [facility] [place] [address] [phone] COPD, severe (HCC)*; Oxygen dependent; Idiopathic cardiomyopathy (HCC); Paroxysmal atrial fibrillation (HCC); Von Willebrand disease (HCC); Narcotic addiction (HCC); History of multiple strokes; jail current use of anticoagulant therapy Allergies Active [...] 04/06/2007 SIMA (generalized anxiety disorder) 02/08 terminal operator current 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 of anticoagulant t herapy 06/01/2005 [...] Code Irritable bowel syndrome with diarrhea K58.0 jail current use of anticoagulant therapy Z79.01 Tobacco [...] (BMI) of 40.0 to 44.9 in adult ([facility]) Z68.41 Current Outpatient Medications Medication Sig Dispense [...] episode of recurrent major depressive disorder ([facility]) 03/05/2020 Morbid obesity due to excess calories ([facility]) 03/05/2020 Narcotic addiction ([facility]) 10/04/2014 Non compliance w medication regimen 10/14/2020 Oxygen dependent 12/29/2019 Paroxysmal atrial fibrillation ([facility]) 10/14/2020 Patent foramen ovale Schizoaffective disorder, chronic condition ([facility]) followed Dr Robby Diego [facility] Sequelae, post-stroke CVA Status asthmaticus Von Willebrand's disease ([facility]) Past Surgical History: Procedure Laterality Date COLONOSCOPY, DIAGNOSTIC (RECTUM) 11/12/2020 large adenomatous polyp, repeat 6 mo / [facility] COLONOSCOPY, W/BIOPSY 10/06/2010 adenomatous/repeat colonoscopy in 1 yr COLONOSCOPY, W/BIOPSY 05/22/2013 hyperplastic polyp EGD, FLEXIBLE, DIAGNOSTIC 02/26/2015 retained food/[facility] EGD, FLEXIBLE, DIAGNOSTIC 11/12/2020 Gastric submucosal mass / [facility] EGD, FLEXIBLE, DIAGNOSTIC 11/06/2020 gastritis / [facility] EGD, FLEXIBLE, W/BIOPSY 05/19/2013 EGD, W/ENDOSCOPIC US 11/05/2011 UPPER GI ENDOSCOPY ENDOSCOPIC ULTRASOUND performed by BERENICE ASHBY at [facility]; REPAIR INITIAL INGUINAL HERNIA REMOVE [...] file Gets together: Not on file Attends nondenominational service: Not on file Active member of [...] Narcotic addiction (HCC) History of multiple strokes terminal operator current use of anticoagulant therapy Tracey Crouch PA-C documented in this encounter Plan of Treatment Upcoming Encounters Date Type Specialty Care Team Description 01/23/2021 Laboratory Laboratory Processing [facility] Mobile Home Draw [address] [facility] [place] [address] 01/24/2021 [facility] [address] [facility] [address] [phone] 01/29/2021 Telemedicine Psychiatry Alisha Gandhi, DO [address] [place] [facility] [place] [address] Health Maintenance Due Date Last Done [...] drug dependence, unspecified History of multiple strokes jail current use of anticoagulant therapy documented in this encounter Advance Directives Documents on File Type Date Recorded Patient Tin Flipper Expl 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
--- OUTSIDE RECORDS SUMMARY | 2023-07-25 05:05 | External Medical Summary | Summary of Care ---
Author Name Unknown Organization [place] [address] Care Team Providers Care Finisher Tailor Apprentice Name Role Phone Roger Alexandra MD Primary Care Provider [phone] Reason for Visit * Reason Onset Date Comments Order Request 08/22/2020 Encounter Details Date Type Department Care Team Description 08/22/2020 Telephone Family Practice [facility] [address] [place] [address] Roger Alexandra MD [address] [facility] [place] [address] [phone] Order Request Allergies Active Allergy Reactions Severity Noted Date Comments Aspirin Unknown 12/12/2007 von Willebrand's disease Salicylates 03/01/2000 von Willebrand's disease documented as of this encounter (statuses as of 12/28/2020) Medications Medication Sig Dispensed Refills Start Date [...] for Wheezing. 20 mL 1 08/23/2020 Active warfarin sodium (COUMADIN) 10 MG Tablet Take 2 tablets on Wednesday and Wednesday, and 1.5 tablets all other days or as directed by anticoagulation pharmacist. 60 Tab 2 05/13/2020 0 Discontinue d(Refill) sertraline (ZOLOFT) 100 MG Tablet Take 1.5 Tabs by mouth daily. 45 Tab 2 07/24/2020 0 Discontinue d(Refill) LORazepam 0.5 MG Oral Tablet (Ativan) Take 1 Tab by mouth 2 times a day as needed for Anxiety. 60 Tab 0 08/15/2020 0 Discontinue d(Refill) Mirtazapine 30 MG Oral Tablet (REMERON) Take 1 Tab by mouth at bedtime. 30 Tab 0 08/19/2020 0 Discontinue d(Refill) documented as of this encounter (statuses as of 12/28/2020) Active Problems Problem Noted Date Body mass [...] as of this encounter (statuses as of 12/28/2020) Resolved Problems Problem Noted Date Resolved Date [...] as of this encounter (statuses as of 12/28/2020) Immunizations Name Administration Dates Next Due H1N1 [...] file Not on file Not on file COVID-19 Exposure Response Date Recorded In the last month, have you been in contact with someone who was confirmed or suspected to have Coronavirus / COVID-19? Unable to assess 07/23/2020 8:15 AM EDT documented as of this encounter Miscellaneous Notes * Telephone Encounter - Susana Velarde CMA - 08/23/2020 4:28 PM EDT Faxed. * Telephone Encounter - Roger Alexandra MD - 08/23/2020 10:46 AM EDT Signed orders. * Telephone Encounter - Roger Alexandra MD - 08/22/2020 6:27 PM EDT Please link everything to diagnoses so I can sign it. * Telephone Encounter - Cathryn Christopher PHARM Tech - 08/22/2020 11:42 AM EDT An order was requested for this patient. Name of [facility]or: [facility] Order Requested: albuterol and nebulizer Diagnosis/Reason for Request: n/a Does the order need to be faxed somewhere? If so, where?: [address] Fax Number, if applicable: [phone] Call Back Number: [phone] Thank You, Cathryn Christopher [facility] Warehouse Worker [facility]pharmacy 08/22/2020, 11:43 AM [phone] advised fax number of [phone] documented in this encounter Plan of Treatment Upcoming Encounters Date Type Specialty Care Team Description 01/02/2021 Laboratory Laboratory Processing [facility] Mobile Home Draw [address] [place] [address] [phone] 01/03/2021 [facility] [address] [place] [address] [phone] 01/29/2021 Telemedicine Psychiatry Alisha Gandhi, DO [address] [place] [address] Health Maintenance Due Date Last [...] of this encounter Visit Diagnoses Diagnosis Bronchitis, complicated- Primary Bronchitis, not specified as acute or chronic COPD, severe (HCC) Chronic airway obstruction, not elsewhere classified documented in this encounter Advance Directives Documents on File Type Date Recorded Patient Correctional Facility Nurse Expl 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
--- OUTSIDE RECORDS SUMMARY | 2023-07-25 05:05 | External Medical Summary | Summary of Care ---
Author Name Unknown Organization [facility] [place] [address] Care Team Providers Care Serials Librarian Name Role Phone Roger Alexandra MD Primary Care Provider [phone] [phone] Reason for Visit * Reason Comments Dosage Adjustment Via Phone (anticoag Cl inic) Encounter Details Date Type Department Care Team Description 01/10/2021 Anticoagulation Pharmacy Call Center [address] [facility] [place] [address] Telepharmacy, [facility] [address] [facility] [address] [phone] Chronic atrial fibrillation (HCC)*; terminal 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 therapy Allergies Active Allergy Reactions Severity Noted Date Comments Aspirin Unknown 12/12/2007 von Willebrand's disease Salicylates 03/01/2000 von Willebrand's disease documented as of this encounter (statuses as of 01/10/2021) Medications Medication Sig Dispensed Refills Start Date [...] as of this encounter (statuses as of 01/10/2021) Active Problems Problem Noted Date Body mass [...] 04/06/2007 SIMA (generalized anxiety disorder) 02/08 terminal 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 t 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 (M) Spoke to Patient Current Warfarin Dose As of 01/10/2021 Warfarin maintenance plan: 10 mg (10 mg x 1) every Wed, Wed, Wed; 5 mg (10 mg x 0.5) all other days Patient-Reported Symptoms: Patient Findings Negatives: Signs/symptoms of thrombosis, Signs/symptoms of bleeding, Change in health, Change in alcohol use, Change in activity, Upcoming invasive procedure, Missed doses, Extra doses, Change in medications, Change in diet/appetite, Bruising INR Result As of 01/10/2021 INR goal: 2.0-3.0 INR used for dosin.03 (01/09/2021) Warfarin Plan As of 01/10/2021 Full warfarin instructions: 01/10: 10 mg; Otherwise 5 mg every Mon, Wed, Fri; 10 mg all other days Next INR check: 01/23/2021 Additional Dosing Information: Description GML Repeat PT/INR in 2 week(s) Weekly dose: increased Kim Mercado RPh Clinical Pharmacist 01/10/2021, 12:13 PM documented in this encounter Plan of Treatment Upcoming Encounters Date Type Specialty Care Team Description 01/29/2021 Telemedicine Psychiatry Alisha Gandhi, DO [address] [facility] [place] [address] Health Maintenance Due Date Last Done [...] of this encounter Visit Diagnoses Diagnosis Chronic atrial fibrillation (HCC)- Primary Atrial fibrillation [facility] current use of anticoagulant therapy documented in this encounter Advance Directives Documents on File Type Date Recorded Patient Director Packaging Expl 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
--- OUTSIDE RECORDS SUMMARY | 2023-07-25 05:06 | External Medical Summary | Summary of Care ---
Author Name Unknown Organization [place] [address] Care Team Providers Care Appraiser Timber Name Role Phone Roger Alexandra MD Primary Care Provider [phone] [phone] Reason for Visit * Reason Comments Appointment Dosage Adjustment Via Phone (anticoag Cl inic) Encounter Details Date Type Department Care Team Description 11/27/2020 Anticoagulation Pharmacy, [facility] [address] [facility] [place] [address] [facility] [address] [facility] [place] [address] Paroxysmal atrial fibrillation (HCC)* Allergies Active Allergy Reactions Severity Noted Date Comments Aspirin Unknown 12/12/2007 von Willebrand's disease Salicylates 03/01/2000 von Willebrand's disease documented as of this encounter (statuses as of 11/27/2020) Medications Medication Sig Dispensed Refills Start Date [...] at bedtime. 30 Tab 1 09/16/2020 Active Isosorbide Mononitrate ER 30 MG Oral Tablet Extended Release 24 Hour (IMDUR) Take 30 mg by mouth daily. 0 10/08/2020 Active Furosemide 20 MG Oral Tablet (Lasix) Take 1 Tab by mouth daily as needed (3 lb weight gain or leg swelling). 30 Tab 1 10/16/2020 Active LORazepam 0.5 MG Oral Tablet (Ativan) Take 1 Tab by mouth 2 times a day as needed for Anxiety. 60 Tab 0 11/18/2020 Active buPROPion HCl ER (XL) 150 MG Oral Tablet Extended Release 24 Hour (Wellbutrin XL) Take 1 Tab by mouth daily. 30 Tab 2 11/19/2020 Active traMADol HCl 50 MG Oral Tablet (ULTRAM)Indications :Chronic bilateral low back pain without sciatica Take 1 Tab by mouth 2 times a day as needed for Pain, Moderate or Pain, Severe. 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 06/01/2005 Overview: ICD-10 update of inactive term Irritable bowel syndrome with diarrhea 0 04/13/2001 Tobacco use disorder documented as of this encounter (statuses as of 11/27/2020) Resolved Problems Problem Noted Date Resolved Date [...] as of this encounter (statuses as of 11/27/2020) Immunizations Name Administration Dates Next Due H1N1 [...] as of this encounter Progress Notes * Abena Moralez RPh - 11/27/2020 2:08 PM EST Medication Therapy Disease Management - Anticoagulation Patient: Kimberly Kendall : 1960 Current Warfarin Dose As of 11/27/2020 Warfarin maintenance plan: 5 mg (10 mg x 0.5) every day Patient-Reported Symptoms: Patient Findings Negatives: Signs/symptoms of thrombosis, Signs/symptoms of bleeding, Change in health, Change in alcohol use, Change in activity, Upcoming invasive procedure, Missed doses, Extra doses, Change in medications, Change in diet/appetite, Bruising INR Result As of 11/27/2020 INR goal: 2.0-3.0 INR used for dosin.0 (11/27/2020) Warfarin Plan As of 11/27/2020 Full warfarin instructions: 11/27: 10 mg; 11/28: 10 mg; Otherwise 5 mg every day Next INR check: Additional Dosing Information: Home Health: [facility] Ph: - orders called in for 12/04/20 Repeat PT/INR in 1 week(s) Weekly dose: not changed Abena Moralez RPh Clinical Pharmacist 11/27/2020, 2:08 PM * Alisha Doe OSA - 11/27/2020 2:01 PM GUNNAR Cano with [facility] calling with pt's INR=1.0 Thank you, Alisha Doe [facility] Tugboat Dispatcher I 11/27/2020, 2:01 PM * Joanna Linn OSA - 11/27/2020 1:57 PM EST Spoke with Rachael with [facility] States she will call nurse to see if patient has been seen yet for her PT/INR documented in this encounter Plan of Treatment Upcoming Encounters Date Type Specialty Care Team Description 12/04/2020 Anticoagulation Pharmacy [facility] [address] [facility] [place] [address] 01/29/2021 Telemedicine Psychiatry Alisha Lilly, DO [address] [facility] [place] [address] Health Maintenance Due [...] Name Priority Date/Time Associated Diagnosis Comments OUTSIDE LAB-PT/INR Routine 11/27/2020 documented in this encounter Results * OUTSIDE LAB-PT/INR (11/27/2020) INR-OUTSIDE LAB 1.0 documented in this encounter Visit Diagnoses Diagnosis Paroxysmal atrial fibrillation (HCC)- Primary Atrial fibrillation documented in this encounter Advance Directives Documents on File Type Date Recorded Patient Industrial Arts Teacher Expl 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
--- OUTSIDE RECORDS SUMMARY | 2023-07-25 05:06 | External Medical Summary | Summary of Care ---
Author Name Unknown Organization [place] [address] Care Team Providers Care Concrete Tester Name Role Phone Roger Alexandra MD Primary Care Provider [phone] [phone] Reason for Visit * Reason Comments Headache Encounter Details Date Type Department Care Team Description 11/29/2020 Telemedicine Family [facility] [address] [place] [address] Matt Agarwal DO [address] [facility] [place] [address] [phone] Muscle tension headache*; COPD, severe (HCC); Narcotic addiction (HCC); Von Willebrand disease (HCC); Morbid obesity due to excess calories (HCC) Allergies Active Allergy Reactions Severity Noted Date Comments Aspirin Unknown 12/12/2007 von Willebrand's disease Salicylates 03/01/2000 von Willebrand's disease documented as of this encounter (statuses as of 12/02/2020) Medications Medication Sig Dispensed Refills Start Date [...] as of this encounter (statuses as of 12/02/2020) Active Problems Problem Noted Date Body mass [...] severe 04/06/2007 SIMA (generalized anxiety disorder) 02/08 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 After connecting through [employer], patient was verified with two unique identifiers. Patient (or authorized legal compliance representative dealer) was then informed that this was a Telemedicine visit and being conducted confidentially over secure lines. Methods to assure confidentiality were taken. Patient acknowledged consent and understanding of privacy and security of the Telemedicine visit. The patient agreed to participate. Subjective: Brief Clinical History Ms. Kendall is a 60 year old woman last seen in Family Medicine 1 month ago (10-17-20). She is due for eval of Body mass index (BMI) of 40.0 to 44.9 in adult (HCC), COPD, severe (HCC), Idiopathic cardiomyopathy (HCC), Moderate episode of recurrent major depressive disorder (HCC), Morbid obesity due to excess calories (HCC), Narcotic addiction (HCC), Paroxysmal atrial fibrillation (HCC), and Von Willebrand disease (HCC). Chief Complaint Patient presents with Headache HPI: Patient is a 60-year-old female with a history of COPD, narcotic addiction, von Willebrand's disease. Patient complains of occipital and frontal headaches times several days.. Patient denies fatigue fever chills or sweats. Patient denies nasal congestion sore throat or earache. Patient denies cough or sputum. Patient denies chest pain shortness of breath or edema. Patient denies cough or sputum. Patient denies abdominal pain nausea vomiting diarrhea. Patient denies joint swelling or rash. Patient denies bruising or bleeding. Review of systems otherwise negative Past Medical History: Medication list, PMH, Family history, social history, and problem list have been reviewed and updated in the Electronic Medical Record as noted below. Patient Active Problem List Diagnosis Code Irritable bowel syndrome with diarrhea K58.0 mastercam programmer current use of anticoagulant therapy Z79.01 Tobacco use disorder F17.200 SIMA (generalized anxiety disorder) F41.1 COPD, severe ([facility]) J44.9 Obstructive sleep apnea G47.33 Patent foramen ovale Q21.1 Von Willebrand disease ([facility]) D68.0 Idiopathic cardiomyopathy ([facility]) I42.8 Narcotic addiction ([facility]) F11.20 Acquired hypothyroidism E03.9 Oxygen dependent Z99.81 Moderate episode of recurrent major depressive disorder ([facility]) F33.1 Morbid obesity due to excess calories ([facility]) E66.01 Non compliance w medication regimen Z91.14 Chronic bilateral low back pain without sciatica M54.5, G89.29 Paroxysmal atrial fibrillation ([facility]) I48.0 Drug-seeking behavior Z76.5 History of multiple strokes Z86.73 Grade I diastolic dysfunction I51.9 Body mass index (BMI) of 40.0 to 44.9 in adult ([facility]) Z68.41 Current Outpatient Medications Medication Sig Dispense Refill traMADol HCl 50 MG Oral Tablet (ULTRAM) Take 1 Tab by mouth 2 times a day as needed for Pain, Moderate or Pain, Severe. 60 Tab 0 buPROPion HCl ER (XL) 150 MG Oral Tablet Extended Release 24 Hour (Wellbutrin XL) Take 1 Tab by mouth daily. 30 Tab 2 LORazepam 0.5 MG Oral Tablet (Ativan) Take 1 Tab by mouth 2 times a day as needed for Anxiety. 60 Tab 0 Furosemide 20 MG Oral Tablet (Lasix) Take 1 Tab by mouth daily as needed (3 lb weight gain or leg swelling). 30 Tab 1 Isosorbide Mononitrate ER 30 MG Oral Tablet Extended Release 24 Hour (IMDUR) Take 30 mg by mouth daily. Mirtazapine 30 MG Oral Tablet (REMERON) Take [...] 03/05/2020 Morbid obesity due to excess calories ([facility]) 03/05/2020 Narcotic addiction (HCC) 10/04/2014 Non compliance w medication regimen 10/14/2020 Oxygen dependent 12/29/2019 Paroxysmal atrial fibrillation (HCC) 10/14/2020 Patent foramen ovale Schizoaffective disorder, chronic condition (HCC) followed [facility] [place]ae, post-stroke CVA Status asthmaticus Von Willebrand's disease (HCC) Past Surgical History: Procedure Laterality Date COLONOSCOPY, DIAGNOSTIC (RECTUM) 11/12/2020 large adenomatous polyp, repeat 6 mo / [facility] COLONOSCOPY, W/BIOPSY 10/06/2010 adenomatous/repeat colonoscopy in 1 yr COLONOSCOPY, W/BIOPSY 05/22/2013 hyperplastic polyp EGD, FLEXIBLE, DIAGNOSTIC 02/26/2015 retained food/[facility] EGD, FLEXIBLE, DIAGNOSTIC 11/12/2020 Gastric submucosal mass / [facility] EGD, FLEXIBLE, DIAGNOSTIC 11/06/2020 gastritis / [facility] EGD, FLEXIBLE, W/BIOPSY 05/19/2013 EGD, W/ENDOSCOPIC US 11/05/2011 UPPER GI ENDOSCOPY ENDOSCOPIC ULTRASOUND performed by BERENICE ASHBY at [facility]; REPAIR INITIAL INGUINAL HERNIA REMOVE GALLBLADDER [...] (Not Specified) Raven (Not Specified) Social History Tobacco Use Smoking status: Current Every Day Smoker Packs/day: 0.25 Years: 32.00 Pack years: 8.00 Types: Cigarettes Last attempt to quit: 01/17/2015 Years since quittin.8 Smokeless tobacco: Never Used Tobacco comment: will only try with patches which are not covered by insurance Substance Use Topics Alcohol use: No Vaping/E-Cigarette Use Vaping/E-Cigarette Substances Vaping/E-Cigarette Devices Review of Systems: No nausea, vomiting or diarrhea. No chest pain or shortness of breath, No fatigue. No fevers, chillor night sweats. All other ROS examined in detail and are negative except as documented in HPI. All other systems reviewed and are negative. Objective: There were no vitals taken for this visit. Physical Exam: General: alert, healthy and no distress Head: Normocephalic Eye Exam: PERRLA, EOMI sclera clear Neuro Exam: alert & oriented x 3 with fluent speech Skin: skin color normal, no rashes or significant lesions Physical exam limited due to telemedicine visit ASSESSMENT/PLAN: Muscle tension headache (Primary) Tylenol OTC as directed p.r.n. Avoid migraine trigger foods Keep calendar of headaches COPD, severe (HCC) Continue present medication Narcotic addiction (HCC) Avoid recreational drugs No narcotics Von Willebrand disease (HCC) Stable Morbid obesity due to excess calories (HCC) Reduced caloric intake diet and exercise Matt Agarwal DO 11/29/20 documented in this encounter Plan of Treatment Upcoming Encounters Date Type Specialty Care Team Description 12/04/2020 Anticoagulation Pharmacy [facility] [address] [facility] [place] [id number] 01/29/2021 Telemedicine Psychiatry Alisha Gandhi DO [address] [facility] [place] [address] Health Maintenance Due [...] as of this encounter Visit Diagnoses Diagnosis Muscle tension headache- Primary Tension headache COPD, severe (HCC) Chronic airway obstruction, not elsewhere classified Narcotic addiction (HCC) Unspecified drug dependence, unspecified Von Willebrand disease (HCC) Von Willebrand's disease Morbid obesity due to excess calories (HCC) documented in this encounter Advance Directives Documents on File Type Date Recorded Patient Credit Portfolio Manager Expl 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
--- OUTSIDE RECORDS SUMMARY | 2023-07-25 05:06 | External Medical Summary | Summary of Care ---
Author Name Unknown Organization [place] [address] Care Team Providers Care Airways Control Specialist Name Role Phone Roger Alexandra MD Primary Care Provider [phone] Reason for Visit * Reason Onset Date Comments Advice 11/29/2020 Encounter Details Date Type Department Care Team Description 11/29/2020 Telephone Family Practice [facility] [address] [place] [address] Roger Alexandra MD [address] [place] [address] [phone] Advice Allergies Active Allergy Reactions Severity Noted Date Comments Aspirin Unknown 12/12/2007 von Willebrand's disease Salicylates 03/01/2000 von Willebrand's disease documented as of this encounter (statuses as of 11/29/2020) Medications Medication Sig Dispensed Refills Start Date [...] as of this encounter (statuses as of 11/29/2020) Active Problems Problem Noted Date Body mass [...] as of this encounter (statuses as of 11/29/2020) Resolved Problems Problem Noted Date Resolved Date [...] as of this encounter (statuses as of 11/29/2020) Immunizations Name Administration Dates Next Due H1N1 [...] Miscellaneous Notes * Telephone Encounter - Kimberly Brooks OSA - 11/29/2020 11:27 AM EST appt scheduled with pt * Telephone Encounter - Roger Alexandra MD - 11/29/2020 11:20 AM EST Video visit anyone today or weekend visit. * Telephone Encounter - Jasmin Womack OSA - 11/29/2020 11:03 AM EST Shanice nurse with [facility] calling for advice for the patient. She has had a headache that is above and below both eyes and the back of her head. She has started Tramadol and Wellbutrin in the past week and Shanice is asking if you feel it could be related to these medications. Tylenol is not touching the pain. Last evening pain was 10 out of 10 and today pain scale of a 7-8. Wellbutrin was prescribed by psychiatry. Please advise the patient on recommendation at her home number. [phone] documented in this encounter Plan of Treatment Upcoming Encounters Date Type Specialty Care Team Description 11/29/2020 Telemedicine Family Medicine Matt Mathew DO [address] [facility] [place] [address] [phone] 12/04/2020 Anticoagulation Pharmacy [facility] [address] [place] [address] 01/29/2021 Telemedicine Psychiatry Alisha Gandhi, DO [address] [facility] [place] [address] Health Maintenance [...] Documents on File Type Date Recorded Patient Trimmer Meat Expl 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
--- OUTSIDE RECORDS SUMMARY | 2023-07-25 05:06 | External Medical Summary | Summary of Care ---
Author Name Unknown Organization [place] [address] Care Team Providers Care Skein Yarn Dyer Helper Name Role Phone Roger Alexandra MD Primary Care Provider [phone] Reason for Visit * Reason Comments Dosage Adjustment Via Phone (anticoag Cl inic) Encounter Details Date Type Department Care Team Description 12/05/2020 Anticoagulation Pharmacy, [facility] [address] [facility] [place] [address] [facility] [address] [facility] [place] [address] Paroxysmal atrial fibrillation (HCC)* Allergies Active Allergy Reactions Severity Noted Date Comments Aspirin Unknown 12/12/2007 von Willebrand's disease Salicylates 03/01/2000 von Willebrand's disease documented as of this encounter (statuses as of 12/05/2020) Medications Medication Sig Dispensed Refills Start Date [...] as of this encounter (statuses as of 12/05/2020) Active Problems Problem Noted Date Body mass [...] severe 04/06/2007 SIMA (generalized anxiety disorder) 02/08 prison current use of anticoagulant t herapy 06/01/2005 Overview: ICD-10 update of inactive term Irritable bowel syndrome with diarrhea 0 04/13/2001 Tobacco use disorder documented as of this encounter (statuses as of 12/05/2020) Resolved Problems Problem Noted Date Resolved Date [...] as of this encounter (statuses as of 12/05/2020) Immunizations Name Administration Dates Next Due H1N1 [...] as of this encounter Progress Notes * Erin Pullaim RPh - 12/05/2020 1:56 PM EST Medication Therapy Disease Management - Anticoagulation Patient: Kimberly Kendall : 1960 Contacts Type Contact Phone 12/05/2020 01:50 PM EST Phone (Outgoing) Kimberly Kendall (Self) [phone] (M) Current Warfarin Dose As of 12/05/2020 Warfarin maintenance plan: 10 mg (10 mg x 1) every Tue, Christiana; 5 mg (10 mg x 0.5) all other days Patient-Reported Symptoms: Patient Findings Positives: Missed doses (Missed dose on Sunday 12/03) Negatives: Signs/symptoms of thrombosis, Signs/symptoms of bleeding, Change in health, Change in alcohol use, Change in activity, Upcoming invasive procedure, Extra doses, Change in medications, Change in diet/appetite, Bruising INR Result As of 12/05/2020 INR goal: 2.0-3.0 INR used for dosin.0 (12/05/2020) Warfarin Plan As of 12/05/2020 Full warfarin instructions: 12/08: 10 mg; Otherwise 10 mg every Tue, Christiana; 5 mg all other days Next INR check: 12/09/2020 Additional Dosing Information: Description Faxed orders to [facility] h[facility]- [phone] Repeat PT/INR in 4 day(s) Weekly dose: increased Erin Pulliam RP Clinical Pharmacist 12/05/2020, 2:16 PM documented in this encounter Plan of Treatment Upcoming Encounters Date Type Specialty Care Team Description 01/29/2021 Telemedicine Psychiatry Alisha Gandhi, DO [address] [place] [address] Health Maintenance Due Date Last [...] Date/Time Associated Diagnosis Comments OUTSIDE LAB-PT/INR Routine 12/05/2020 documented in this encounter Results * OUTSIDE LAB-PT/INR (12/05/2020) INR-OUTSIDE LAB 1.0 Specimen documented in this encounter Visit Diagnoses Diagnosis Paroxysmal atrial fibrillation (HCC)- Primary Atrial fibrillation documented in this encounter Advance Directives Documents on File Type Date Recorded Patient Tool Planner Expl 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
--- OUTSIDE RECORDS SUMMARY | 2023-07-25 05:06 | External Medical Summary | Summary of Care ---
Author Name Unknown Organization [facility] Address [place] [id number] Care Team Providers Care Stationary Boiler Fireman Name Role Phone Roger Alexandra MD Primary Care Provider [phone] Reason for Referral * Evaluate & Treat - Unlimited Visits (Within 10 days (routine)) Status Reason Specialty Diagnoses / Procedures Referred By Contact Referred To Contact Pending Review Specialty Services Required Psychology Diagnoses SIMA (generalized anxiety disorder) Major depressive disorder, recurrent episode, moderate (HCC) PTSD (post-traumatic stress disorder) Alisha Lilly, DO [address] [place] [address] Reason for Visit * Reason Comments Anxiety Depression Encounter Details Date Type Department Care Team Description 11/19/2020 [facility] Psychiatry, [address] [address] Alisha Lilly, DO [address] [place] [address] [phone] SIMA (generalized anxiety disorder)*; Major depressive disorder, recurrent episode, moderate (HCC); PTSD (post-traumatic stress disorder) Allergies Active Allergy Reactions Severity Noted Date Comments Aspirin Unknown 12/12/2007 von Willebrand's disease Salicylates 03/01/2000 von Willebrand's disease documented as of this encounter (statuses as of 11/25/2020) Medications Medication Sig Dispensed Refills Start Date [...] mouth daily. 30 Tab 2 11/19/2020 Active Sertraline HCl 100 MG Oral Tablet (ZOLOFT) Take 1.5 Tabs by mouth daily. 45 Tab 2 10/22/2020 1 Discontinue d(Patient preference/ discontinua tion) documented as of this encounter (statuses as of 11/25/2020) Active Problems Problem Noted Date Body mass [...] as of this encounter (statuses as of 11/25/2020) Resolved Problems Problem Noted Date Resolved Date [...] as of this encounter (statuses as of 11/25/2020) Immunizations Name Administration Dates Next Due H1N1 [...] as of this encounter Progress Notes * Florencio Lillyah Paty, DO - 11/19/2020 10:18 AM EST After connecting through televideo, patient was verified with two unique identifiers. Patient (or authorized legal route service representative) was then informed that this was a Telemedicine visit and being conducted confidentially over secure lines. Methods to assure confidentiality were taken. Patient acknowledged consent and understanding of privacy and security of the Telemedicine visit. The patient agreed to participate. PSYCHOTHERAPY & MEDICATION MANAGEMENT RETURN VISIT NOTE Psychiatry, [address] [address] 11/19/2020 Kimberly Mckeon CHIEF COMPLAINT: Depression INTERVAL HISTORY: Kimberly states that over the holiday she was in the hospital. She was bleeding in her intestines. She had 6 polyps removed. She was discharged 2 days ago. She is feeling weak. She will be having a home health nurse come and help. Kimberly is living with her youngest granddaughter. Kimberly states that she continues to feel depressed. She is interested in trying something other than Zoloft. She has tried Wellbutrin in the past, and denies any adverse effects. She denies hx of seizure disorder or eating disorder. No hx of gastric bypass. She denies current suicidal ideation/plan/intent. She denies HI/AVH. No paranoid ideations or delusions. OBJECTIVE DATA: COLUMBIA-SUICIDE SEVERITY RATING SCALE Have you ever wished that you were , or not alive anymore? Denies currently Have you actually had thoughts about killing yourself? Denies Have you been thinking about how you [...] and reasons for living SIGECAPS: - Sleep: 4-6 hours/day - Interest: apathetic - Guilt: Yes - Energy: decreased - Concentration: difficult - Appetite: decreased - Psychomotor Activity: decreased - Psychosis: denies Anxiety: - Excessive Worry- Yes ROS EXAM: Denies chest pain, nausea, fevers. (+) mild abdominal pain and headaches. All other ROS negative No observed or reported side effects to current medications SUBSTANCE ABUSE:Unremarkable. Quit smoking 2 months ago. RELEVANT PAST PSYCHIATRIC, MEDICAL, FAMILY OR SOCIAL HX: Recent medical hospitalization CURRENT MEDS: Current Outpatient Medications Medication Sig Dispense Refill LORazepam 0.5 MG Oral Tablet (Ativan) Take 1 Tab by mouth 2 times a day as needed for Anxiety. 60 Tab 0 Sertraline HCl 100 MG Oral Tablet (ZOLOFT) Take 1.5 Tabs by mouth daily. 45 Tab 2 Furosemide 20 MG Oral Tablet (Lasix) Take [...] for KIMBERLY MCKEON ( ) as of 11/19/2020 10:27 Ref. Range 10/17/2020 15:40 CBC/DIFF Unknown Rpt (A) WBC Latest Ref Range: 4.00 - 10.80 K/uL 7.25 RBC Latest Ref Range: 3.85 - 5.15 M/uL 3.94 HGB Latest Ref Range: 12.0 - 15.3 g/dL 12.2 HCT Latest Ref Range: 36.0 - 45.2 % 39.5 PLATELET COUNT Latest Ref Range: 140 - 400 K/uL 385 PRO BNP Latest Ref Range: 0 - 299 pg/mL 337 (H) BUN Latest Ref Range: 6 - 20 mg/dL 10 CREATININE Latest Ref Range: 0.5 - 1.0 mg/dL 0.7 E GLOM FILT RATE Latest Ref Range: >60 >60.0 SODIUM Latest Ref Range: 135 - 146 mmol/L 142 POTASSIUM Latest Ref Range: 3.5 - 5.1 mmol/L 4.6 CHLORIDE Latest Ref Range: 98 - 107 mmol/L 104 CO2 Latest Ref Range: 22 - 32 mmol/L 28 GLUCOSE Latest Ref Range: 70 - 120 mg/dL 83 CALCIUM Latest Ref Range: 8.4 - 10.2 mg/dL 9.0 ANION GAP Latest Ref Range: 7 - 15 mmol/L 10 MENTAL STATUS EVALUATION: Appearance: age-appropriate and casually [...] -intact Insight:fair Judgment:fair FORMULATION: Kimberly Mckeon is a 60 year old female with [...] not tolerate Effexor or Lexapro. Zoloft not helpful ASSESSMENT- DIAGNOSIS:Major depressive disorder recurrent episode moderate Generalized Anxiety Disorder PTSD Bereavement PLAN: - Can take Hydroxyzine 50 mg BID PRN for anxiety. Encouraged her to only use this PRN and stop taking as a standing dose. - Can take Ativan 0.5 mg BID PRN for. Discussed trying to not utilize this over Hydroxyzine and use this just as emergency rescue -ContinueRemeron 30 mgQHS to help with insomnia, depression and low appetite. - Stop Zoloft-- by decreasing to 100 mg for 1 week and then 50 mg for 1 week, and then stop. Given hx of difficulty with INR will stop SSRI as this may impact coagulation. - Start Wellbutrin XL 150 mg daily for depression. No hx of seizure, eating disorder or gastric bypass - Strongly recommend therapy-therapy referral placed - Asked her to reach out to me in 2 weeks with an update - Crisis planning-- Kimberly Mckeon has been provided with Psychiatry emergency telephone numbers, including crisis number, text suicide hotline and suicide hotline. The crisis plan was reviewedand updated if necessary based on the information above. Side effects of the medication were explained, and the patient understands the risks and benefits of using the medication. Discussed risks, expected benefits, and potential adverse [...] clinical information. Alisha Gandhi D.O. Psychiatry Attending 11/19/2020 documented in this encounter Miscellaneous Notes * Addendum Note - Alisha Lilly DO - 11/25/2020 12:27 PM EST Addended by: ALISHA LILLY on: 11/25/2020 12:27 PM Modules accepted: Level of Service documented in this encounter Plan of Treatment Upcoming Encounters Date Type Specialty Care Team Description 11/25/2020 [facility] [address] [facility] [place] [address] 01/29/2021 Telemedicine Psychiatry Alisha Lilly DO [address] [facility] [place] [address] Scheduled Referrals Name Type Priority Associated Diagnoses Orde r Schedule PSYCHOLOGY REFERRAL OP Referral Within 10 days (routine) SIMA (generalized anxiety disorder) Major depressive disorder, recurrent episode, moderate (HCC) PTSD (post-traumatic stress disorder) Ordered: 11/19/2020 Health Maintenance Due Date Last Done Comments [...] (HCC) Major depressive disorder, recurrent episode, moderate PTSD (post-traumatic stress disorder) Posttraumatic stress disorder documented in this encounter Advance Directives Documents on File Type Date Recorded Patient Dial Printer Expl 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
--- OUTSIDE RECORDS SUMMARY | 2023-07-25 05:06 | External Medical Summary | Summary of Care ---
Author Name Unknown Organization [place] [address] Care Team Providers Care Procurement Internship Name Role Phone Roger Alexandra MD Primary Care Provider +1 [phone] Encounter Details Date Type Department Care Team Description 11/22/2020 Telemedicine [facility] [address] [facility] [place] [address] Roger Alexandra MD 132 [facility] [place] [address] [phone] History of anemia*; Moderate episode of recurrent major depressive disorder (HCC); Acquired hypothyroidism; Morbid obesity due to excess calories (HCC); Idiopathic cardiomyopathy (HCC); COPD, severe (HCC); Paroxysmal atrial fibrillation (HCC); Oxygen dependent; 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; Tobacco use disorder; Drug-seeking behavior; SIMA (generalized anxiety disorder); Narcotic addiction (HCC); Patent foramen ovale; Obstructive sleep apnea; History of multiple strokes; Chronic bilateral low back pain without sciatica Allergies Active Allergy Reactions Severity Noted Date Comments Aspirin Unknown 12/12/2007 von Willebrand's disease Salicylates 03/01/2000 von Willebrand's disease documented as of this encounter (statuses as of 11/22/2020) Medications Medication Sig Dispensed Refills Start Date [...] as of this encounter (statuses as of 11/22/2020) Active Problems Problem Noted Date Body mass [...] severe 04/06/2007 SIMA (generalized anxiety disorder) 02/08 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 Patient was then informed that this was a telephone call only visit. The patient agreed to participate. Visit Disposition: Routine follow-up Total call duration was 11 minutes. SUBJECTIVE: Kimberly Kendall is a 60 year old female. No chief complaint on file. HPI: Medically complex 60 year old female recently hospitalized for supratherapeutic INR with anemia. Nosource of GI bleed was found. Multiple colonic polyps biopsied. Benign. She is following with psych. She has a very difficult psychosocial situation which makes her basically home bound. She does have the appropriate services set up. I did agree to prescribe her tramadol for her chronic pain but 60tabs must last her one month. She understands. 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 Z79.01 Tobacco use disorder F17.200 SIMA (generalized anxiety disorder) F41.1 COPD, severe (HCC) J44.9 Obstructive sleep apnea G47.33 Patent foramen ovale Q21.1 Von Willebrand disease ([facility]) D68.0 Idiopathic cardiomyopathy ([facility]) I42.8 Narcotic addiction ([facility]) F11.20 Acquired hypothyroidism E03.9 Oxygen dependent Z99.81 Moderate episode of recurrent major depressive disorder ([facility]) F33.1 Morbid obesity due to excess calories ([facility]) E66.01 Non compliance w medication regimen Z91.14 Chronic bilateral low back pain without sciatica M54.5, G89.29 Paroxysmal atrial fibrillation ([facility]) I48.0 Drug-seeking behavior Z76.5 History [...] were no vitals taken for this visit. ASSESSMENT AND PLAN: (Z86.2) History of anemia (primary encounter diagnosis) Plan: resolved ---f/u with GI -avoid NSAIDS (F33.1) Moderate episode of recurrent major depressive disorder (HCC) Plan: continue wellbutrin -follows with psych (E03.9) Acquired hypothyroidism Plan: euthyroid (E66.01) Morbid obesity due to excess calories (HCC) Plan: not really a candidate to lose much weight due to multiple comorbidities and overall lack of motivation (I42.8) Idiopathic cardiomyopathy (HCC) Plan: stable (J44.9) COPD, severe (HCC) Plan: stable ---- still smokes (I48.0) Paroxysmal atrial fibrillation (HCC) Plan: stable -continue coumadin (Z99.81) Oxygen dependent Plan: noted (Z79.01) 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 No other complaints were offered at this time. Roger Alexandra MD documented in this encounter Plan of Treatment Upcoming Encounters Date Type Specialty Care Team Description 11/22/2020 Anticoagulation Pharmacy [facility] 132 [facility] [place] [address] Paroxysmal atrial fibrillation (HCC)* 11/25/2020 Anticoagulation Pharmacy [facility] 132 [facility] [place] [address] Health Maintenance Due Date Last Done Comments [...] Paroxysmal atrial fibrillation (HCC)- Primary Atrial fibrillation History of anemia- Primary Personal history of diseases of blood and blood-forming organs Moderate episode of recurrent major depressive disorder (HCC) Acquired hypothyroidism Unspecified hypothyroidism Morbid obesity due to excess calories (HCC) Idiopathic cardiomyopathy (HCC) Other primary cardiomyopathies COPD, severe (HCC) Chronic airway obstruction, not elsewhere classified Paroxysmal atrial fibrillation (HCC) Atrial fibrillation Oxygen dependent Dependence on supplemental oxygen detention current use of anticoagulant therapy Tobacco use disorder Drug-seeking behavior Other, mixed, or unspecified nondependent drug abuse, unspecified SIMA (generalized anxiety disorder) Generalized anxiety disorder Narcotic addiction (HCC) Unspecified drug dependence, unspecified Patent foramen ovale Ostium secundum type atrial septal defect Obstructive sleep apnea Obstructive sleep apnea (adult) (pediatric) History of multiple strokes Chronic bilateral low back pain without sciatica documented in this encounter Advance Directives Documents on File Type Date Recorded Patient Simplex Operator Expl 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
--- OUTSIDE RECORDS SUMMARY | 2023-07-25 05:06 | External Medical Summary | Summary of Care ---
Author Name Unknown Organization [facility] Address [place] [address] Care Team Providers Care Tarp Repairer Name Role Phone Jeevan Mclean MD Primary Care Provider [phone] [phone] Encounter Details Date Type Department Care Team Description 12/05/2020 Refill Family Practice [facility] [address] [place] [address] Jeevan Mclean MD 132 [facility] [place] [address] [phone] Allergies Active Allergy Reactions Severity Noted Date [...] mouth daily. 30 Tab 5 12/05/2020 Active Isosorbide Mononitrate ER 30 MG Oral Tablet Extended Release 24 Hour (IMDUR) Take 30 mg by mouth daily. 0 10/08/2020 1 Discontinue d(Refill) documented as [...] severe 04/06/2007 SIMA (generalized anxiety disorder) 02/08 long-term current use of anticoagulant t herapy 06/01/2005 [...] Telephone Encounter - Susana Velarde CMA - 12/05/2020 3:00 PM EST Called pt. Let her know the message. Pt is frustrated because she wants her medications filled but they are not in her chart and some of there were d/c. I told her we need to go over her medications with her and have her be seen here before we can fill it. She said she will call back later. * Telephone Encounter - Kimberly Brooks OSA - 12/05/2020 1:56 PM EST Please transfer to scheduling after you give pt results * Telephone Encounter - Matt Mathew DO - 12/05/2020 1:50 PM EST Signed Prescriptions: Disp Refills Isosorbide Mononitrate ER 30 MG Oral Table*30 Tab 5 Sig: Take 1 Tab by mouth daily.Authorizing Provider: JEEVAN MCLEAN * Telephone Encounter - Matt Mathew DO - 12/05/2020 1:49 PM EST Advise schedule an office clinic visit for further evaluation treatment of persistent symptoms. Advise bring medications on day of office visit for review and medication reconciliation.. Advise continue present medical therapy pending office visit * Telephone Encounter - Gisel Giordano LPN - 12/05/2020 11:58 AM EST Gracie calling from [facility]. Patient is complaining of the headache/migraine still. Complaining of depression still. Patient is not wearing her 02 when sitting-- Sp O2 sitting is 94%. Patient would no ambulate for Leila today. 3lpm continuous -09/2020 date for start date of 02. ((historical 2014 says 4lpm as needed and bed time) Many discrepancies with med list. No gabapentin on our chart- DC from [facility] stated continue Gabapentin 300mg BID. Potassium 20 meq daily - not on our med list. Pantoprazole 40mg daily- not on our med list. Sertraline 150mg daily- on [facility] discharge, but not on [facility] med list or ours. Gracie reports that patient does have her son that helps her so he could bring her to an appt. In person appt to go over meds and what should be continued/discontinued?? Telemed was on 11/[address] Mathew. Fax updated med list to [phone]. documented in this encounter Plan of Treatment Upcoming Encounters Date Type Specialty Care Team Description 12/05/2020 Anticoagulation Pharmacy [facility] [address] [facility] [place] [address] Paroxysmal atrial fibrillation (HCC)* 01/29/2021 Telemedicine Psychiatry Alisha Gandhi DO [address] [facility] [place] [address] Health Maintenance Due Date [...] Documents on File Type Date Recorded Patient Sumatra Opener Expl 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
--- OUTSIDE RECORDS SUMMARY | 2023-07-25 05:06 | External Medical Summary | Summary of Care ---
Author Name Unknown Organization [place] [address] Care Team Providers Care Supervisor Dimension Warehouse Name Role Phone Roger Alexandra MD Primary Care Provider [phone] [phone] Reason for Visit * Reason Comments FYI Dosage Adjustment Via Phone (anticoag Cl inic) Encounter Details Date Type Department Care Team Description 12/04/2020 Anticoagulation Pharmacy, [facility] 132 [facility] [place] [address] [facility] [address] [facility] [place] [address] Paroxysmal atrial fibrillation (HCC)* Allergies Active Allergy Reactions Severity Noted Date Comments Aspirin Unknown 12/12/2007 von Willebrand's disease Salicylates 03/01/2000 von Willebrand's disease documented as of this encounter (statuses as of 12/04/2020) Medications Medication Sig Dispensed Refills Start Date [...] as of this encounter (statuses as of 12/04/2020) Active Problems Problem Noted Date Body mass [...] severe 04/06/2007 SIMA (generalized anxiety disorder) 02/08 detention current use of anticoagulant t herapy 06/01/2005 Overview: ICD-10 update of inactive term Irritable bowel syndrome with diarrhea 0 04/13/2001 Tobacco use disorder documented as of this encounter (statuses as of 12/04/2020) Resolved Problems Problem Noted Date Resolved Date [...] as of this encounter (statuses as of 12/04/2020) Immunizations Name Administration Dates Next Due H1N1 [...] Progress Notes * Abena Moralez RPh - 12/04/2020 1:53 PM EST Medication Therapy Disease Management - Anticoagulation Patient: Kimberly Kendall : 1960 Current Warfarin Dose As of 12/04/2020 Warfarin maintenance plan: 5 mg (10 mg x 0.5) every day Patient-Reported Symptoms: INR Result As of 12/04/2020 INR goal: 2.0-3.0 INR used for dosing: Warfarin Plan As of 12/04/2020 Full warfarin instructions: 5 mg every day Next INR check: 12/05/2020 Additional Dosing Information: Repeat PT/INR in 1 day(s) Weekly dose: not changed Faxed orders to [facility]- [phone] Abena Moralez [facility] Clinical Pharmacist 12/04/2020, 1:53 PM * Christine Babin OSA - 12/04/2020 1:21 PM EST [facility] calling to report that patient declined visit today, they will be going tomorrow. Please fax orders to [phone] Thank you, Christine Babin [employer] Broomer I documented in this encounter Plan of Treatment Upcoming Encounters Date Type Specialty Care Team Description 12/05/2020 Anticoagulation Pharmacy [facility] [address] [place] [address] 01/29/2021 Telemedicine Psychiatry Alisha Gandhi Paty, DO [address] [facility] [place] [address] Health Maintenance Due Date [...] Documents on File Type Date Recorded Patient Sound Engineering Technician Expl 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
--- OUTSIDE RECORDS SUMMARY | 2023-07-25 05:06 | External Medical Summary | Summary of Care ---
Author Name Unknown Organization [facility] Address [place] [address] Care Team Providers Care Supervisor Liquefaction Name Role Phone Jeevan Mclean MD Primary Care Provider [phone] [phone] Encounter Details Date Type Department Care Team Description 12/05/2020 Refill Family Practice [facility] [address] [place] [address] Jeevan Mclean MD 132 [facility] [place] [address] [phone] Allergies Active Allergy Reactions Severity Noted Date [...] severe 04/06/2007 SIMA (generalized anxiety disorder) 02/08 [facility] current use of anticoagulant t herapy 06/01/2005 [...] 12/05/2020 11:58 AM EST Gracie calling from [facility]. Patient is complaining of the headache/migraine still. Complaining of depression still. Patient is not wearing her 02 when sitting-- Sp O2 sitting is 94%. Patient would no ambulate for Leila today. 3lpm continuous -09/2020 date for start date of 02. ((historical 2014 says 4lpm as needed and bed time) Many discrepancies with med list. No gabapentin on our chart- DC from [facility] stated continue Gabapentin 300mg BID. Potassium 20 meq daily - not on our med list. Pantoprazole 40mg daily- not on our med list. Sertraline 150mg daily- on [facility] discharge, but not on [facility] med list or ours. Gracie reports that patient does have her son that helps her so he could bring her to an appt. In person appt to go over meds and what should be continued/discontinued?? Telemed was on 11/[address] Mathew. Fax updated med list to [phone]. documented in this encounter Plan of Treatment Upcoming Encounters Date Type Specialty Care Team Description 12/05/2020 Anticoagulation Pharmacy [facility] 132 [facility] [place] [address] Paroxysmal atrial fibrillation (HCC)* 01/29/2021 Telemedicine Psychiatry Alisha Gandhi, DO [address] [facility] [address] [place] [address] Health Maintenance Due Date Last Done Comments Zoster Vaccines (1 of 2) 2010 *DEPRESSION SCREENING,ANNUAL FOR PTS 12 AND OVER 04/11/2015 BREAST CANCER SCREENING DISCUSSION YEARLY AGES 40-75 10/28/2016 10/28/2015, 04/27/2014, 05/12/2013, Additional history exists DTaP,Tdap,and Td Vaccines (2 - Td) 06/27/2018 06/27/2008 *DISCUSS TOBACCO CESSATION (REFER TO SMARTSET #1091) 01/04/2020 *ADVANCE DIRECTIVE NOT ON FILE 03/08/2020 [...] Documents on File Type Date Recorded Patient Child Care Aide Expl 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
--- OUTSIDE RECORDS SUMMARY | 2023-07-25 05:06 | External Medical Summary | Summary of Care ---
Author Name Unknown Organization [facility] Address [place] [address] Care Team Providers Care Wirer Name Role Phone Roger Alexandra MD Primary Care Provider +1 [phone] Encounter Details Date Type Department Care Team Description 12/05/2020 Refill Family Practice [facility] [address] [place] [address] Roger Alexandra MD 132 [facility] [place] [address] [phone] Allergies Active Allergy Reactions Severity Noted Date [...] Notes * Telephone Encounter - Gisel Giordano LPN - 12/05/2020 11:58 AM EST Gracie calling from [facility]. Patient is complaining of the headache/migraine still. Complaining of depression still. Patient is not wearing her 02 when sitting-- Sp O2 sitting is 94%. Patient would no ambulate for Leila today. 3lpm continuous -09/2020 date for start date of . ((historical 2014 says 4lpm as needed and bed time) Many discrepancies with med list. No gabapentin on our chart- DC from [facility] stated continue Gabapentin 300mg BID. Potassium 20 meq daily - not on our med list. Pantoprazole 40mg daily- not on our med list. Sertraline 150mg daily- on [facility] discharge, but not on [facility] med list or ours. Gracie reports that patient does have her son that helps her so he could bring her to an appt. In person appt to go over meds and what should be continued/discontinued?? Telemed was on 11/[address] Mathew. Fax updated med list to [phone]. documented in this encounter Plan of Treatment Upcoming Encounters Date Type Specialty Care Team Description 12/05/2020 Anticoagulation Pharmacy [facility] [address] [place] [address] 01/29/2021 Telemedicine Psychiatry Alisha Gandhi, DO [address] [facility] [place] [address] Health Maintenance Due [...] Documents on File Type Date Recorded Patient Crinkling Machine Operator Expl 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
--- OUTSIDE RECORDS SUMMARY | 2023-07-25 05:06 | External Medical Summary | Summary of Care ---
Author Name Unknown Organization [place] [address] Care Team Providers Care Retail Selling Specialist Name Role Phone Roger Alexandra MD Primary Care Provider [phone] [phone] Reason for Visit * Reason Comments Dosage Adjustment Via Phone (anticoag Cl inic) Encounter Details Date Type Department Care Team Description 12/05/2020 Anticoagulation Pharmacy, [facility] [address] [facility] [place] [address] [facility] [address] [facility] [place] [address] Paroxysmal atrial fibrillation (HCC)* Allergies Active Allergy [...] 04/06/2007 SIMA (generalized anxiety disorder) 02/08 senior care current use of anticoagulant t herapy 06/01/2005 [...] of this encounter Progress Notes * Erin Pulliam RPh - 12/05/2020 1:56 PM EST Medication Therapy Disease Management - Anticoagulation Patient: Kimberly Kendall : 1960 Contacts Type Contact Phone 12/05/2020 01:50 PM EST Phone (Outgoing) Kimberly Kendall (Self) [phone] (M) Current Warfarin Dose As of 12/05/2020 [...] Additional Dosing Information: Description Faxed orders to [facility]- [phone] Repeat PT/INR in 4 day(s) Weekly dose: increased Erin Pulliam RP Clinical Pharmacist 12/05/2020, 2:16 PM documented in this encounter Plan of Treatment Upcoming Encounters Date Type Specialty Care Team Description 12/05/2020 Anticoagulation Pharmacy [facility] [address] [facility] [place] [id number] 01/29/2021 Telemedicine Psychiatry Alisha Gandhi, DO [address] [facility] [place] [address] Health Maintenance [...] Documents on File Type Date Recorded Patient Enamel Sprayer Expl 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
--- OUTSIDE RECORDS SUMMARY | 2023-07-25 05:06 | External Medical Summary | Summary of Care ---
Author Name Unknown Organization [place] [place] [address] Care Team Providers Care Customer Supply Coordinator Name Role Phone Roger Alexandra MD Primary Care Provider +1 [phone] Reason for Visit * Reason Comments Dosage Adjustment Via Phone (anticoag Cl inic) Encounter Details Date Type Department Care Team Description 12/05/2020 Anticoagulation Pharmacy, [facility] 132 [facility] [place] [address] [facility] [address] [facility] [place] [address] History of multiple strokes*; Paroxysmal atrial fibrillation (HCC) Allergies Active Allergy [...] mouth daily. 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 anticoagulant t herapy 06/01/2005 [...] Notes * Erin Pulliam RPh - 12/05/2020 4:28 PM EST Medication Therapy Disease Management - Anticoagulation Patient: Kimberly Kendall : 1960 Contacts Type Contact Phone 12/05/2020 04:28 PM EST Phone (Outgoing) EnochKimberly (Self) [phone] (M) Spoke to Patient Current Warfarin Dose As of 12/05/2020 Warfarin maintenance plan: 10 mg (10 mg x 1) every Tue, [place]; 5 mg (10 mg x 0.5) all other days Patient-Reported Symptoms: Patient Findings Positives: Missed doses (Sunday 12/03) Negatives: Signs/symptoms of thrombosis, Signs/symptoms of bleeding, Change in health, Change in alcohol use, Change in activity, Upcoming invasive procedure, Extra doses, Change in medications, Change in diet/appetite, Bruising INR Result As of 12/05/2020 INR goal: 2.0-3.0 INR used for dosin.0 ! (12/06/2020) Warfarin Plan As of 12/05/2020 Full warfarin instructions: 12/08: 10 mg; Otherwise 10 mg every Tue, [place]; 5 mg all other days Next INR check: 12/09/2020 Additional Dosing Information: Description Faxed orders to [facility]- [phone] Repeat PT/INR in 4 day(s) Weekly dose: increased Erin Pulliam [facility] Clinical Pharmacist 12/05/2020, 4:29 PM documented in this encounter Plan of Treatment Upcoming Encounters Date Type Specialty Care Team Description 12/05/2020 Anticoagulation Pharmacy [facility] [address] [place] [address] Paroxysmal atrial fibrillation (HCC)* 12/09/2020 [facility] [address] [facility] [place] [address] [phone] 01/29/2021 Telemedicine Psychiatry Alisha Gandhi, [address] [facility] [place] [address] Health Maintenance [...] fibrillation (HCC)- Primary Atrial fibrillation History of multiple strokes- Primary Paroxysmal atrial fibrillation (HCC) Atrial fibrillation documented in this encounter Advance Directives Documents on File Type Date Recorded Patient Glass Mould Cleaner Expl 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
--- OUTSIDE RECORDS SUMMARY | 2023-07-25 05:06 | External Medical Summary | Summary of Care ---
Author Name Unknown Organization [facility] Address [place] [address] Care Team Providers Care Block Engraver Name Role Phone Jeevan Mclean MD Primary Care Provider [phone] [phone] Encounter Details Date Type Department Care Team Description 12/05/2020 Refill Family Practice [facility] [address] [place] [address] Jeevan Mclean MD 132 [facility] [place] [address] [phone] Allergies Active Allergy Reactions Severity Noted Date [...] 12/05/2020 11:58 AM EST Gracie calling from [facility]. Patient is complaining of [...] No gabapentin on our chart- DC from [facility] stated continue Gabapentin 300mg BID. Potassium 20 meq daily - not on our med list. Pantoprazole 40mg daily- not on our med list. Sertraline 150mg daily- on [facility] discharge, but not on [facility] med list or ours. Gracie reports that patient does have her son that helps her so he could bring her to an appt. In person appt to go over meds and what should be continued/discontinued?? Telemed was on 11/[address] Mathew. Fax updated med list to [phone]. documented in this encounter Plan of Treatment Upcoming Encounters Date Type Specialty Care Team Description 12/05/2020 Anticoagulation Pharmacy [facility] 132 [facility] [place] [address] 01/29/2021 Telemedicine Psychiatry Alisha Gandhi, [facility] [address] [facility] [place] [address] Health Maintenance Due Date Last Done Comments Zoster Vaccines (1 of 2) 2010 *DEPRESSION SCREENING,ANNUAL FOR PTS 12 AND OVER 04/11/2015 BREAST CANCER SCREENING DISCUSSION YEARLY AGES 40-75 10/28/2016 10/28/2015, 04/27/2014, 05/12/2013, Additional history exists DTaP,Tdap,and Td Vaccines (2 - Td) 06/27/2018 06/27/2008 *DISCUSS TOBACCO CESSATION (REFER TO SMARTSET #2251) 01/04/2020 *ADVANCE DIRECTIVE NOT ON FILE 03/08/2020 [...] Documents on File Type Date Recorded Patient Ux Designer Expl 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
--- OUTSIDE RECORDS SUMMARY | 2023-07-25 05:06 | External Medical Summary | Summary of Care ---
Author Name Unknown Organization [facility] Address [place] [address] Care Team Providers Care Vice President Of Sales Name Role Phone Jeevan Mclean MD Primary Care Provider +1 [phone] Encounter Details Date Type Department Care Team Description 12/05/2020 Refill Family Practice [facility] [address] [place] [address] Jeevan Mclean MD 132 [facility] [place] [address] [phone] Allergies Active Allergy Reactions Severity Noted Date [...] severe 04/06/2007 SIMA (generalized anxiety disorder) 02/08 correction current use of anticoagulant t herapy 06/01/2005 [...] LPN - 12/05/2020 11:58 AM EST Gracie yeh from [facility]. Patient is complaining of the headache/migraine still. Complaining of depression still. Patient is not wearing her 02 when sitting-- Sp O2 sitting is 94%. Patient would no ambulate for Leila today. 3lpm continuous -09/2020 date for start date of 02. ((historical 2014 says 4lpm as needed and bed time) Many discrepancies with med list. No gabapentin on our chart- DC from [facility] stated continue Gabapentin 300mg BID. Potassium 20 meq daily - not on our med list. Pantoprazole 40mg daily- not on our med list. Sertraline 150mg daily- on [facility] discharge, but not on [facility] med list or ours. Gracie reports that patient does have her son that helps her so he could bring her to an appt. In person appt to go over meds and what should be continued/discontinued?? Telemed was on 11/[address] Mathew. Fax updated med list to [phone]. documented in this encounter Plan of Treatment Upcoming Encounters Date Type Specialty Care Team Description 12/05/2020 Anticoagulation Pharmacy [address] [place] [address] 01/29/2021 Telemedicine Psychiatry [facility]isha Gandhi[facility] [address] [facility] [address] Health Maintenance Due Date [...] Documents on File Type Date Recorded Patient Casing Blower Expl anation Advanced Directive service a yohana [...]
--- OUTSIDE RECORDS SUMMARY | 2023-07-25 05:06 | External Medical Summary | Summary of Care ---
Author Name Unknown Organization [facility] Address [place] [address] Care Team Providers Care Fire Support Specialist Name Role Phone Roger Alexandra MD Primary Care Provider +1 [phone] Reason for Referral * Ancillary Services (Within 10 days (routine)) Status Reason Specialty Diagnoses / Procedures Referred By Contact Referred To Contact Pending Review Ancillary Services Required Studio Sales Associate Diagnoses [facility] [address] [place] [address] Electronically signed by Kim Mercado [facility] at Reason for Visit * Reason Comments Dosage Adjustment Via Phone (anticoag Cl inic) Encounter Details Date Type Department Care Team Description 12/10/2020 Anticoagulation Pharmacy Call Center [address] [place] [address] [facility] [address] [place] [id number] [phone] Anticoagulation management encounter* Allergies Active Allergy Reactions Severity Noted Date Comments Aspirin Unknown 12/12/2007 von Willebrand's disease Salicylates 03/01/2000 von Willebrand's disease documented as of this encounter (statuses as of 12/10/2020) Medications Medication Sig Dispensed Refills Start Date [...] as of this encounter (statuses as of 12/10/2020) Active Problems Problem Noted Date Body mass [...] as of this encounter (statuses as of 12/10/2020) Resolved Problems Problem Noted Date Resolved Date [...] as of this encounter (statuses as of 12/10/2020) Immunizations Name Administration Dates Next Due H1N1 [...] encounter Progress Notes * Kim Mercado, [facility] - 12/10/2020 12:13 PM EST Medication Therapy Disease Management - Anticoagulation Patient: Kimberly Hung Enoch : 1960 Contacts Type Contact Phone 12/10/2020 12:12 PM EST Phone (Outgoing) Kimberly Kendall (Self) [phone] (M) Spoke to Patient Current Warfarin Dose As of 12/10/2020 Warfarin maintenance plan: 10 mg (10 mg x 1) every Tue, Christiana; 5 mg (10 mg x 0.5) all other days Patient-Reported Symptoms: Patient Findings Negatives: Signs/symptoms of thrombosis, Signs/symptoms of bleeding, Change in health, Change in alcohol use, Change in activity, Upcoming invasive procedure, Missed doses, Extra doses, Change in medications, Change in diet/appetite, Bruising INR Result As of 12/10/2020 INR goal: 2.0-3.0 INR used for dosing: No new INR was available at the time of this encounter. Warfarin Plan As of 12/10/2020 Full warfarin instructions: 10 mg every Tue, Christiana; 5 mg all other days Next INR check: 12/19/2020 Additional Dosing Information: Description GML Repeat PT/INR in 1.5 week(s) GML Referral placed. Weekly dose: not changed Kim Mercado RPh Clinical Pharmacist 12/10/2020, 12:14 PM documented in this encounter Plan of Treatment Upcoming Encounters Date Type Specialty Care Team Description 01/29/2021 Telemedicine Psychiatry Alisha Gandhi, DO [address] [place] [address] Scheduled Referrals Name Type Priority Associated Diagnoses Orde r Schedule HOME PHLEBOTOMY REFERRAL OP Referral Within 10 days (routine) Anticoagulation management encounter Ordered: 12/10/2020 Health Maintenance Due Date Last Done Comments [...] on File Type Date Recorded Patient Health And Safety Technician Expl 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
--- OUTSIDE RECORDS SUMMARY | 2023-07-25 05:07 | External Medical Summary | Summary of Care ---
Author Name Unknown Organization [place] [address] Care Team Providers Care Community Health Advisor Name Role Phone Roger Alexandra MD Primary Care Provider [phone] [phone] Reason for Referral * Evaluate & Treat - Unlimited Visits (Within 3 days (urgent)) Status Reason Specialty Diagnoses / Procedures Referred By Contact Referred To Contact Pending Review Specialty Services Required Occupational Medicine / Occupational Therapy Diagnoses Oxygen dependent Roger Alexandra MD 132 [facility] [place] [address] Reason for Visit * Reason Onset Date Comments Advice 11/20/2020 Encounter Details Date Type Department Care Team Description 11/20/2020 Telephone Family Practice [facility] [address] [place] [address] Roger Alexandra MD 132 [facility] [place] [address] [phone] Advice Allergies Active Allergy Reactions Severity Noted Date Comments Aspirin Unknown 12/12/2007 von Willebrand's disease Salicylates 03/01/2000 von Willebrand's disease documented as of this encounter (statuses as of 11/20/2020) Medications Medication Sig Dispensed Refills Start Date [...] mouth daily. 30 Tab 2 11/19/2020 Active documented as of this encounter (statuses as of 11/20/2020) Active Problems Problem Noted Date Body mass [...] severe 04/06/2007 SIMA (generalized anxiety disorder) 02/08 intermediate manager current use of anticoagulant t herapy 06/01/2005 Overview: ICD-10 update of inactive term Irritable bowel syndrome with diarrhea 0 04/13/2001 Tobacco use disorder documented as of this encounter (statuses as of 11/20/2020) Resolved Problems Problem Noted Date Resolved Date [...] as of this encounter (statuses as of 11/20/2020) Immunizations Name Administration Dates Next Due H1N1 [...] encounter Miscellaneous Notes * Telephone Encounter - Jasmin Womack OSA - 11/20/2020 4:47 PM EST Pt calling asking if Dr. Alexandra is going to prescribe the tramadol for her. Can someone from the clinic please call her and advise on Dr. Alexandra's response. Also pt had asked about her colonoscopy . I did advise her that this was normal and she wondered how it was normal when he "removed polyps and had to staple the colon" Can you further advise her on this as well. * Telephone Encounter - Kim De Guzman LPN - 11/20/2020 4:00 PM EST OT ref is for deconditioning. Please sign. Alisha, the OT nurse also was suspicious about the pain medication. Will pass [facility] the [facility]. Taking 12 Tylenol a day. 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 This is at least the 10th occasion I have had to deny requests for addictive medication for her. Her colonoscopy was normal. * Telephone Encounter - Marcie Mnosivais OSA - 11/20/2020 1:45 PM EST Alisha from [facility] home health calling. Requesting orders for OT to continue seeing patient. 1x wk 2 wks 1x wk 2wks starting 12/09 Pt is also asking to start tramadol for pain. Pt is taking several tylenol a day without much help with paint. Stated pt had been on tramadol previously. Pt also asking for test results from colonoscopy that was done at [facility]. documented in this encounter Plan of Treatment Upcoming Encounters Date Type Specialty Care Team Description 11/22/2020 Telemedicine Family Medicine Roger Alexandra MD [address] [place] [address] [phone] 11/22/2020 Anticoagulation Pharmacy [facility] [address] [place] [address] Scheduled Referrals Name Type Priority Associated Diagnoses Order Schedule OCCUPATIONAL THERAPY REFERRAL OP Referral Within 3 days (urgent) Oxygen dependent Ordered: 11/20/2020 Health Maintenance Due Date Last Done Comments [...] as of this encounter Visit Diagnoses Diagnosis Oxygen dependent- Primary Dependence on supplemental oxygen documented in this encounter Advance Directives Documents on File Type Date Recorded Patient Product Inspection Supervisor Expl 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
--- OUTSIDE RECORDS SUMMARY | 2023-07-25 05:07 | External Medical Summary | Summary of Care ---
Author Name Unknown Organization [place] [address] Care Team Providers Care Jewel Gauger Name Role Phone Roger Alexandra MD Primary Care Provider [phone] Reason for Referral * Evaluate & Treat - Unlimited Visits (Within 3 days (urgent)) Status Reason Specialty Diagnoses / Procedures Referred By Contact Referred To Contact Pending Review Specialty Services Required Occupational Medicine / Occupational Therapy Diagnoses Oxygen dependent Roger Alexandra MD 132 [facility] [place] [address] Reason for Visit * Reason Onset Date Comments Advice 11/20/2020 Encounter Details Date Type Department Care Team Description 11/20/2020 Telephone Family Practice [facility] [address] [place] [address] Roger Alexandra MD 132 [facility] [place] [address] [phone] Advice Allergies Active Allergy Reactions Severity Noted Date Comments Aspirin Unknown 12/12/2007 von Willebrand's disease Salicylates 03/01/2000 von Willebrand's disease documented as of this encounter (statuses as of 11/21/2020) Medications Medication Sig Dispensed Refills Start Date [...] as of this encounter (statuses as of 11/21/2020) Active Problems Problem Noted Date Body mass [...] severe 04/06/2007 SIMA (generalized anxiety disorder) 02/08 manager terminal current use of anticoagulant t herapy 06/01/2005 Overview: ICD-10 update of inactive term Irritable bowel syndrome with diarrhea 0 04/13/2001 Tobacco use disorder documented as of this encounter (statuses as of 11/21/2020) Resolved Problems Problem Noted Date Resolved Date [...] as of this encounter (statuses as of 11/21/2020) Immunizations Name Administration Dates Next Due H1N1 [...] Miscellaneous Notes * Telephone Encounter - Alisha Michele LPN - 11/20/2020 5:02 PM EST Pt calling back. Inform pt of Dr alexandra's message from earlier today. Pt verbalized understanding. * Telephone Encounter - Temi West LPN - 11/20/2020 4:54 PM EST Called patient, no answer, no voice mail box was noted during phone call. * Telephone Encounter - Jasmin Womack OSA [...] onto the her [facility]from [facility]. Taking 12 Tylenol a day. 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 This is at least the 10th occasion I have had to deny requests for addictive medication for her. Her colonoscopy was normal. * Telephone Encounter - Marcie Monsivais OSA - 11/20/2020 1:45 PM EST Alisha from [facility] home health calling. Requesting orders for OT to continue seeing patient. 1x wk 2 wks 1x wk 2wks starting 12/09 Pt is also asking to start tramadol for pain. Pt is taking several tylenol a day without much help with paint. Stated pt had been on tramadol previously. Pt also asking for test results from colonoscopy that was done at [facility]. documented in this encounter Plan of Treatment Upcoming Encounters Date Type Specialty Care Team Description 11/22/2020 Telemedicine Family Medicine Roger Alexandra MD [address] [place] [address] [phone] 11/22/2020 Anticoagulation Pharmacy [facility] [place] [address] [place] [address] Scheduled Referrals Name Type Priority Associated Diagnoses [...] Documents on File Type Date Recorded Patient Cardiothoracic Icu Rn Expl anation Advanced Directive service a yohana [...]
--- OUTSIDE RECORDS SUMMARY | 2023-07-25 05:07 | External Medical Summary | Summary of Care ---
Author Name Unknown [place] [address] Care Team Providers Care Clarifier Name Role Phone Roger Alexandra MD Primary Care Provider [phone] [phone] Reason for Referral * Evaluate & Treat - Unlimited Visits (Within 3 days (urgent)) Status Reason Specialty Diagnoses / Procedures Referred By Contact Referred To Contact Pending Review Specialty Services Required Occupational Medicine / Occupational Therapy Diagnoses Oxygen dependent Roger Alexandra MD 132 [facility] [place] [address] Reason for Visit * Reason Onset Date Comments Advice 11/20/2020 Encounter Details Date Type Department Care Team Description 11/20/2020 Telephone Family Practice [facility] [address] [place] [address] Roger Alexandra MD 132 [facility] [place] [address] [phone] Advice Allergies Active Allergy Reactions Severity Noted [...] severe 04/06/2007 SIMA (generalized anxiety disorder) 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 Wednesday patients weight was 251. Today she is 255. Wanted to make the doctor aware. Lungs are clear. Says she is eating better. * Telephone Encounter - Saray Bright OSA - 11/21/2020 8:56 AM EST Faxed referral for OT * Telephone Encounter - Alisha Michele LPN [...] Will pass this onto the her teamfrom [facility]. Taking 12 Tylenol a day. 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 This is at least the 10th occasion I have had to deny requests for addictive medication for her. Her colonoscopy was normal. * Telephone Encounter - Marcie Monsivais OSA - 11/20/2020 1:45 PM EST Alisha from [facility] home health calling. Requesting orders for OT to continue seeing patient. 1x wk 2 wks 1x wk 2wks starting 12/09 Pt is also asking to start tramadol for pain. Pt is taking several tylenol a day without much help with paint. Stated pt had been on tramadol previously. Pt also asking for test results from colonoscopy that was done at [facility]. documented in this encounter Plan of Treatment Upcoming Encounters Date Type Specialty Care Team Description 11/22/2020 Telemedicine Family Medicine Roger Alexandra MD [address] [place] [address] [phone] 11/22/2020 Anticoagulation Pharmacy [facility] [place] [address] [place] [address] Scheduled Referrals Name Type Priority Associated Diagnoses [...] Documents on File Type Date Recorded Patient Pbx Wire Chief Expl anation Advanced Directive service a yohana [...]
--- OUTSIDE RECORDS SUMMARY | 2023-07-25 05:07 | External Medical Summary | Summary of Care ---
Author Name Unknown Organization [facility] Address [place] [address] Care Team Providers Care Carpenter Packing Name Role Phone Roger Alexandra MD Primary Care Provider [phone] [phone] Reason for Visit * Reason Comments Dosage Adjustment Via Phone (anticoag Cl inic) Encounter Details Date Type Department Care Team Description 11/18/2020 Anticoagulation Pharmacy, [facility] [address] [facility] [place] [address] [facility] [address] [facility] [place] [address] Paroxysmal atrial fibrillation (HCC)* Allergies Active Allergy Reactions Severity Noted Date Comments Aspirin Unknown 12/12/2007 von Willebrand's disease Salicylates 03/01/2000 von Willebrand's disease documented as of this encounter (statuses as of 11/18/2020) Medications Medication Sig Dispensed Refills Start Date [...] at bedtime. 30 Tab 1 09/16/2020 Active LORazepam 0.5 MG Oral Tablet (Ativan) Take 1 Tab by mouth 2 times a day as needed for Anxiety. 60 Tab 0 10/11/2020 Active Isosorbide Mononitrate ER 30 MG Oral Tablet Extended Release 24 Hour (IMDUR) Take 30 mg by mouth daily. 0 10/08/2020 Active Furosemide 20 MG Oral Tablet (Lasix) Take 1 Tab by mouth daily as needed (3 lb weight gain or leg swelling). 30 Tab 1 10/16/2020 Active Sertraline HCl 100 MG Oral Tablet (ZOLOFT) Take 1.5 Tabs by mouth daily. 45 Tab 2 10/22/2020 Active documented as of this encounter (statuses as of 11/18/2020) Active Problems Problem Noted Date Body mass [...] severe 04/06/2007 SIMA (generalized anxiety disorder) 02/08 jail current use of anticoagulant t herapy 06/01/2005 Overview: ICD-10 update of inactive term Irritable bowel syndrome with diarrhea 0 04/13/2001 Tobacco use disorder documented as of this encounter (statuses as of 11/18/2020) Resolved Problems Problem Noted Date Resolved Date [...] as of this encounter (statuses as of 11/18/2020) Immunizations Name Administration Dates Next Due H1N1 [...] Progress Notes * Erin Pulliam RPh - 11/18/2020 9:50 AM EST Medication Therapy Disease Management - Anticoagulation Patient: Kimberly Kendall : 1960 Contacts Type Contact Phone 11/18/2020 09:56 AM EST Phone (Outgoing) Kimberly Kendall (Self) [phone] (M) Spoke to Patient Current Warfarin Dose As of 11/18/2020 Warfarin maintenance plan: 5 mg (10 mg x 0.5) every day Patient-Reported Symptoms: Patient Findings Positives: Hospital admission (Patient admitted to [facility] 11/04 of melena and INR 9.7. recieved vitamin K at admission and coumadin held for entireity of stay) INR Result As of 11/18/2020 INR goal: 2.0-3.0 INR used for dosing: No new INR was available at the time of this encounter. Warfarin Plan As of 11/18/2020 Full warfarin instructions: 11/18: Hold; Otherwise 5 mg every day Next INR check: 11/22/2020 Additional Dosing Information: Home Health: [facility] and [facility] Repeat PT/INR on Wednesday, Nov 22, 2020 Weekly dose: establishing Erin Pulliam [facility] Clinical Pharmacist 11/18/2020, 9:53 AM documented in this encounter Plan of Treatment Upcoming Encounters Date Type Specialty Care Team Description 11/19/2020 Telemedicine Psychiatry Alisha Lilly, DO [address], [place] [id number] Health Maintenance Due Date Last Done Comments [...] Documents on File Type Date Recorded Patient Ancillary Specialist Expl 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
--- OUTSIDE RECORDS SUMMARY | 2023-07-25 05:07 | External Medical Summary | Summary of Care ---
Author Name Unknown Organization [place] [address] Care Team Providers Care Manager Of Financial Reporting Name Role Phone Roger Alexandra MD Primary Care Provider [phone] [phone] Reason for Visit * Reason Onset Date Comments Medication Refill 11/18/2020 Encounter Details Date Type Department Care Team Description 11/18/2020 Refill [facility] [place] [address] [place], [place] [id number] Alisha Lilly, [address], [place] [id number] Allergies Active Allergy Reactions Severity Noted Date [...] mouth daily. 45 Tab 2 10/22/2020 Active LORazepam 0.5 MG Oral Tablet (Ativan) Take 1 Tab by mouth 2 times a day as needed for Anxiety. 60 Tab 0 11/18/2020 Active LORazepam 0.5 MG Oral Tablet (Ativan) Take 1 Tab by mouth 2 times a day as needed for Anxiety. 60 Tab 0 10/11/2020 1 Discontinue d(Refill) documented as of this [...] Notes * Telephone Encounter - Alisha Lilly DO - 11/18/2020 7:11 PM EST Signed Prescriptions: Disp Refills LORazepam 0.5 MG Oral Tablet (Ativan) 60 Tab 0 Sig: Take 1 Tab by mouth 2 times a day as needed for Anxiety. Authorizing Provider: ALISHA LILLY * Telephone Encounter - Kimberly Hernandez OSA - 11/18/2020 3:04 PM EST Patient calling for refill on Lorazepam. Patient last seen on 07/24/20 with return appointment scheduled for 11/19/20 but pt is OUT OF MED NOW. Patient had 0 cancelled appointments and 0 NO SHOW appointments. Medication was last filled on 10/11/20 with 0 refills. documented in this encounter Plan of Treatment Upcoming Encounters Date Type Specialty Care Team Description 11/19/2020 Telemedicine Psychiatry Alisha Lilly DO [address] [facility] [place] [id number] 11/22/2020 [address] [place] [address] Health Maintenance Due Date Last Done [...] Documents on File Type Date Recorded Patient Magnetometer Operator Expl 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
--- OUTSIDE RECORDS SUMMARY | 2023-07-25 05:07 | External Medical Summary | Summary of Care ---
Author Name Unknown Organization [place] [address] Care Team Providers Care Signaler Name Role Phone Roger Alexandra MD Primary Care Provider [phone] [phone] Reason for Visit * Reason Onset Date Comments Appointment 11/20/2020 PSYCHOLOGY REFER RAL Encounter Details Date Type Department Care Team Description 11/20/2020 Telephone Psychiatry, [place] [address] [place] [address] Alisha Lilly, [address] [place] [address] Appointment (PSYCHOLOGY REFERRAL ) Allergies Active Allergy Reactions Severity Noted [...] severe 04/06/2007 SIMA (generalized anxiety disorder) 02/08 custodial current use of anticoagulant t herapy 06/01/2005 [...] encounter Miscellaneous Notes * Telephone Encounter - Maggie Amanda OSA - 11/20/2020 9:38 AM EST Patient with Psychology referral, please schedule. SIMA Major depressive disorder, recurrent episode, moderate PTSD (post-traumatic stress disorder) documented in this encounter Plan of Treatment Upcoming Encounters Date Type Specialty Care Team Description 11/22/2020 Telemedicine Family Medicine Roger Alexandra MD [address] [address] [phone] Arrived 11/22/2020 [facility] [address] [address] Health Maintenance Due Date Last Done Comments [...] on File Type Date Recorded Patient Oil Pumper Expl anation Advanced Directive service a yohana [...]
--- OUTSIDE RECORDS SUMMARY | 2023-07-25 05:07 | External Medical Summary | Summary of Care ---
Author Name Unknown Organization [facility] Address [place] [id number] Care Team Providers Care Armament Repairer Name Role Phone Roger Alexandra MD Primary Care Provider +1 [phone] Reason for Referral * Evaluate & Treat - Unlimited Visits (Within 10 days (routine)) Status Reason Specialty Diagnoses / Procedures Referred By Contact Referred To Contact Pending Review Specialty Services Required Psychology Diagnoses SIMA (generalized anxiety disorder) Major depressive disorder, recurrent episode, moderate (HCC) PTSD (post-traumatic stress disorder) Alisha Lilly, DO [address] [place] [address] Reason for Visit * Reason Comments Anxiety Depression Encounter Details Date Type Department Care Team Description 11/19/2020 [facility] Psychiatry, [address] [address] Alisha Lilly, DO [address] [place] [address] [phone] SIMA (generalized anxiety disorder)*; Major depressive disorder, recurrent episode, moderate (HCC); PTSD (post-traumatic stress disorder) Allergies Active Allergy Reactions Severity Noted Date Comments Aspirin Unknown 12/12/2007 von Willebrand's disease Salicylates 03/01/2000 von Willebrand's disease documented as of this encounter (statuses as of 11/19/2020) Medications Medication Sig Dispensed Refills Start Date [...] by mouth daily. 45 Tab 2 10/22/2020 Discontinue d(Patient preference/ discontinua tion) documented as of this encounter (statuses as of 11/19/2020) Active Problems Problem Noted Date Body mass [...] 04/06/2007 SIMA (generalized anxiety disorder) 02/08 intermediate current use of anticoagulant t herapy 06/01/2005 Overview: ICD-10 update of inactive term Irritable bowel syndrome with diarrhea 0 04/13/2001 Tobacco use disorder documented as of this encounter (statuses as of 11/19/2020) Resolved Problems Problem Noted Date Resolved Date [...] as of this encounter (statuses as of 11/19/2020) Immunizations Name Administration Dates Next Due H1N1 [...] two unique identifiers. Patient (or authorized legal enrollment eligibility representative) was then informed that this was a Telemedicine visit and being conducted confidentially over secure lines. Methods to assure confidentiality were taken. Patient acknowledged consent and understanding of privacy and security of the Telemedicine visit. The patient agreed to participate. PSYCHOTHERAPY & MEDICATION MANAGEMENT RETURN VISIT NOTE Psychiatry, [address] [address] 11/19/2020 Kimberly Mckeon CHIEF COMPLAINT: Depression INTERVAL [...] Psychiatry Attending 11/19/2020 documented in this encounter Plan of Treatment Upcoming Encounters Date Type Specialty Care Team Description 11/22/2020 Anticoagulation Pharmacy [facility] [address] [facility] [place] [id number] Scheduled Referrals Name Type Priority Associated Diagnoses [...] Documents on File Type Date Recorded Patient Plating Technician Expl 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
--- OUTSIDE RECORDS SUMMARY | 2023-07-25 05:07 | External Medical Summary | Summary of Care ---
Author Name Unknown Organization [facility] [place] [address] Care Team Providers Care Sql Database Developer Name Role Phone Roger Alexandra MD Primary Care Provider [phone] [phone] Reason for Referral * Evaluate & Treat - Unlimited Visits (Within 3 days (urgent)) Status Reason Specialty Diagnoses / Procedures Referred By Contact Referred To Contact Pending Review Specialty Services Required Occupational Medicine / Occupational Therapy Diagnoses Oxygen dependent Roger Alexandra MD [address] [facility] [place] [address] Reason for Visit * Reason Onset Date Comments Advice 11/20/2020 Encounter Details Date Type Department Care Team Description 11/20/2020 Telephone Family Practice [facility] [address] [address] Roger Alexandra MD [address] [facility] [place] [address] [phone] Advice Allergies Active Allergy Reactions Severity Noted [...] severe 04/06/2007 SIMA (generalized anxiety disorder) 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 Taking 12 Tylenol a day. 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 This is at least the 10th occasion I have had to deny requests for addictive medication for her. Her colonoscopy was normal. * Telephone Encounter - Marcie Monsivais OSA - 11/20/2020 1:45 PM EST Alisha from [facility] home health calling. Requesting orders for OT to continue seeing patient. 1x wk 2 wks 1x wk 2wks starting 12/09 Pt is also asking to start tramadol for pain. Pt is taking several tylenol a day without much help with paint. Stated pt had been on tramadol previously. Pt also asking for test results from colonoscopy that was done at [facility]. documented in this encounter Plan of Treatment Upcoming Encounters Date Type Specialty Care Team Description 11/22/2020 Telemedicine Family Medicine Roger Alexandra MD [address] [address] [phone] 11/22/2020 Anticoagulation Pharmacy [facility] [place] [address] [address] Scheduled Referrals Name Type Priority Associated Diagnoses [...] Documents on File Type Date Recorded Patient Aqueduct And Reservoir Keeper Expl anation Advanced Directive service a yohana [...]
--- OUTSIDE RECORDS SUMMARY | 2023-07-25 05:07 | External Medical Summary | Summary of Care ---
Author Name Unknown Organization [facility] Address [place] [address] Care Team Providers Care Fly Winder Name Role Phone Roger Alexandra MD Primary Care Provider [phone] [phone] Encounter Details Date Type Department Care Team Description 11/16/2020 Scan Encounter Unspecified Department <No scans attached> [...] Encounters Date Type Specialty Care Team Description 11/18/2020 Anticoagulation Pharmacy [facility] [address] [address] Paroxysmal atrial fibrillation (HCC)* 11/19/2020 Telemedicine Psychiatry [facility] Alisha Newman, DO [address] [place] [address] 11/22/2020 Anticoagulation Pharmacy [facility] [address] [address] Health Maintenance Due Date Last Done Comments [...] on File Type Date Recorded Patient Assistant Housekeeping Manager Expl 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
--- OUTSIDE RECORDS SUMMARY | 2023-07-25 05:07 | External Medical Summary | Summary of Care ---
Author Name Unknown Organization [facility] Address [place] [address] Care Team Providers Care Logging Crew Supervisor Name Role Phone Roger Alexandra MD Primary Care Provider [phone] Encounter Details Date Type Department Care Team Description 11/15/2020 Scan Encounter Unspecified Department <No scans attached> [...] Specialty Care Team Description 11/18/2020 Anticoagulation Pharmacy [facility] [address] [facility] [address] [place] [address] Paroxysmal atrial fibrillation (HCC)* 11/19/2020 Telemedicine Psychiatry [facility] Alisha Paty, DO [address] [facility] [address] [...] Documents on File Type Date Recorded Patient Mechanic Helper Expl 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
--- OUTSIDE RECORDS SUMMARY | 2023-07-25 05:07 | External Medical Summary | Summary of Care ---
Author Name Unknown Organization [place] [address] Care Team Providers Care After School Program Coordinator Name Role Phone Roger Alexandra MD Primary Care Provider [phone] Reason for Referral * Evaluate & Treat - Unlimited Visits (Within 3 days (urgent)) Status Reason Specialty Diagnoses / Procedures Referred By Contact Referred To Contact Pending Review Specialty Services Required Occupational Medicine / Occupational Therapy Diagnoses Oxygen dependent Roger Alexandra MD [address] [facility] [place] [address] Reason for Visit * Reason Onset Date Comments Advice 11/20/2020 Encounter Details Date Type Department Care Team Description 11/20/2020 Telephone Family Practice [facility] [address] [address] Roger Alexandra MD [address] [facility] [place] [address] [phone] Advice Allergies Active Allergy Reactions Severity Noted [...] severe 04/06/2007 SIMA (generalized anxiety disorder) 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 Please sign. Alisha the OT nurse also was suspicious about the pain medication. Will pass this onto the her teamfrom [facility]. Taking 12 Tylenol a day. 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 This is at least the 10th occasion I have had to deny requests for addictive medication for her. Her colonoscopy was normal. * Telephone Encounter - Marcie Monsivais OSA - 11/20/2020 1:45 PM EST Alisha from [facility] home health calling. Requesting orders for OT to continue seeing patient. 1x wk 2 wks 1x wk 2wks starting 12/09 Pt is also asking to start tramadol for pain. Pt is taking several tylenol a day without much help with paint. Stated pt had been on tramadol previously. Pt also asking for test results from colonoscopy that was done at [facility]. documented in this encounter Plan of Treatment Upcoming Encounters Date Type Specialty Care Team Description 11/22/2020 Telemedicine Family Medicine Roger Alexandra MD [address] [address] [phone] 11/22/2020 Anticoagulation Pharmacy [facility] [address] [address] Scheduled Referrals Name Type Priority Associated Diagnoses [...] Documents on File Type Date Recorded Patient Seam Feller Expl anation Advanced Directive service a yohana [...]
--- OUTSIDE RECORDS SUMMARY | 2023-07-25 05:07 | External Medical Summary | Summary of Care ---
Author Name Unknown Organization [place] [address] Care Team Providers Care Mineral Engineer Name Role Phone Roger Alexandra MD Primary Care Provider [phone] Reason for Referral * Evaluate & Treat - Unlimited Visits (Within 3 days (urgent)) Status Reason Specialty Diagnoses / Procedures Referred By Contact Referred To Contact Pending Review Specialty Services Required Occupational Medicine / Occupational Therapy Diagnoses Oxygen dependent Roger Alexandra MD [address] [facility] [place] [address] Reason for Visit * Reason Onset Date Comments Advice 11/20/2020 Encounter Details Date Type Department Care Team Description 11/20/[address] 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 Requesting orders for OT to continue seeing patient. 1x wk 2 wks 1x wk 2wks starting 12/09 Pt is also asking to start tramadol for pain. Pt is taking several tylenol a day without much help with paint. Stated pt had been on tramadol previously. Pt also asking for test results from colonoscopy that was done at [facility]. documented in this encounter Plan of Treatment Upcoming Encounters Date Type Specialty Care Team Description 11/22/2020 Telemedicine Family Medicine Roger Alexandra MD [address] [place] [address] [phone] 11/22/2020 Anticoagulation Pharmacy [facility] [address] [address] Scheduled Referrals Name Type Priority Associated Diagnoses [...] Documents on File Type Date Recorded Patient Casework Specialist Expl 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
--- OUTSIDE RECORDS SUMMARY | 2023-07-25 05:07 | External Medical Summary | Summary of Care ---
Author Name Unknown Organization [place] [address] Care Team Providers Care Photo Colorer Name Role Phone Roger Alexandra MD Primary Care Provider [phone] Reason for Referral * Evaluate & Treat - Unlimited Visits (Within 3 days (urgent)) Status Reason Specialty Diagnoses / Procedures Referred By Contact Referred To Contact Pending Review Specialty Services Required Occupational Medicine / Occupational Therapy Diagnoses Oxygen dependent Roger Alexandra MD [address] [facility] [address] [place] [address] Reason for Visit * Reason Onset Date Comments Advice 11/20/2020 Encounter Details Date Type Department Care Team Description 11/20/2020 Telephone Family Practice [facility] [address] [address] Roger Alexandra MD [address] [facility] [place] [address] [phone] Advice Allergies Active Allergy Reactions Severity Noted [...] severe 04/06/2007 SIMA (generalized anxiety disorder) 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 Taking 12 Tylenol a day. 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 This is at least the 10th occasion I have had to deny requests for addictive medication for her. Her colonoscopy was normal. * Telephone Encounter - Marcie Monsivais OSA - 11/20/2020 1:45 PM EST Alisha from [facility] home health calling. Requesting orders for OT to continue seeing patient. 1x wk 2 wks 1x wk 2wks starting 12/09 Pt is also asking to start tramadol for pain. Pt is taking several tylenol a day without much help with paint. Stated pt had been on tramadol previously. Pt also asking for test results from colonoscopy that was done at [facility]. documented in this encounter Plan of Treatment Upcoming Encounters Date Type Specialty Care Team Description 11/22/2020 Telemedicine Family Medicine Roger Alexandra MD [address] [place] [address] [phone] 11/22/[address] [facility] [address] [address] Scheduled Referrals Name Type Priority Associated Diagnoses [...] Documents on File Type Date Recorded Patient Leader Tier Expl anation Advanced Directive service a yohana [...]
--- OUTSIDE RECORDS SUMMARY | 2023-07-25 05:07 | External Medical Summary | Summary of Care ---
Author Name Unknown Organization [facility] Address [place] [address] Care Team Providers Care Nut Tightener Name Role Phone Roger Alexandra MD Primary Care Provider [phone] [phone] Reason for Visit * Reason Comments Dosage Adjustment Via Phone (anticoag Cl inic) Encounter Details Date Type Department Care Team Description 11/18/2020 Anticoagulation Pharmacy, [facility] [address] [facility] [place] [address] [facility] [address] [facility] [place] [address] Paroxysmal atrial fibrillation (HCC)* Allergies Active Allergy [...] severe 04/06/2007 SIMA (generalized anxiety disorder) 02/08 [facility] current use of anticoagulant t herapy 06/01/2005 [...] AM EST Phone (Outgoing) Kimberly Kendall (Self) [phone] (M) Spoke to Patient Current Warfarin Dose As of 11/18/2020 Warfarin maintenance plan: 5 mg (10 mg x 0.5) every day Patient-Reported Symptoms: Patient Findings Positives: Hospital admission (Patient admitted to [facility] 11/04 bc of melena and INR 9.7. recieved vitamin [...] check: 11/22/2020 Additional Dosing Information: Home Health: [facility] Ph: - orders called in for 11/22/20 Repeat PT/INR on Wednesday, Nov 22, 2020 Weekly dose: establishing Erin Pulliam [facility] Clinical Pharmacist 11/18/2020, 9:53 AM documented in this encounter Plan of Treatment Upcoming Encounters Date Type Specialty Care Team Description 11/19/2020 Telemedicine Psychiatry Alisha Lilly, DO [address] [place] [address] Health Maintenance Due Date Last [...] on File Type Date Recorded Patient Manager Laundry Expl anation Advanced Directive service a yohana [...]
--- OUTSIDE RECORDS SUMMARY | 2023-07-25 05:07 | External Medical Summary | Summary of Care ---
Author Name Unknown Organization [place] [address] Care Team Providers Care Irrigator Overhead Name Role Phone Roger Alexandra MD Primary Care Provider [phone] Reason for Referral * Evaluate & Treat - Unlimited Visits (Within 3 days (urgent)) Status Reason Specialty Diagnoses / Procedures Referred By Contact Referred To Contact Pending Review Specialty Services Required Occupational Medicine / Occupational Therapy Diagnoses Oxygen dependent Roger Alexandra MD [address] [facility] [place] [address] Reason for Visit * Reason Onset Date Comments Advice 11/20/2020 Encounter Details Date Type Department Care Team Description 11/20/2020 Telephone Family Practice [facility] [address] [address] Roger Alexandra MD [address] [facility] [place] [address] [phone] Advice Allergies Active Allergy Reactions Severity Noted [...] severe 04/06/2007 SIMA (generalized anxiety disorder) 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 Taking 12 Tylenol a day. 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 This is at least the 10th occasion I have had to deny requests for addictive medication for her. Her colonoscopy was normal. * Telephone Encounter - Marcie Monsivais OSA - 11/20/2020 1:45 PM EST Alisha from [facility] home health calling. Requesting orders for OT to continue seeing patient. 1x wk 2 wks 1x wk 2wks starting 12/09 Pt is also asking to start tramadol for pain. Pt is taking several tylenol a day without much help with paint. Stated pt had been on tramadol previously. Pt also asking for test results from colonoscopy that was done at [facility]. documented in this encounter Plan of Treatment Upcoming Encounters Date Type Specialty Care Team Description 11/22/2020 Telemedicine Family Medicine Roger Alexandra MD [address] [address] [phone] 11/22/2020 Anticoagulation Pharmacy [facility] [address] [address] Scheduled Referrals Name Type Priority Associated Diagnoses [...] Documents on File Type Date Recorded Patient Waste Collection Driver Expl 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
--- OUTSIDE RECORDS SUMMARY | 2023-07-25 05:07 | External Medical Summary | Summary of Care ---
Author Name Unknown Organization [place] [address] Care Team Providers Care Valet Manager Name Role Phone Roger Alexandra MD Primary Care Provider [phone] [phone] Reason for Visit * Reason Comments Appointment Encounter Details Date Type Department Care Team Description 11/22/2020 Anticoagulation Pharmacy, [facility] [address] [facility] [place] [address] [facility] [address] [facility] [place] [address] Paroxysmal atrial fibrillation (HCC)* Allergies Active Allergy [...] this encounter Progress Notes * Abena Moralez [facility] - 11/22/2020 1:24 PM EST Medication Therapy Disease Management - Anticoagulation Patient: Kimberly Kendall : 1960 Current Warfarin Dose As of 11/22/2020 Warfarin maintenance plan: 5 mg (10 mg x 0.5) every day Patient-Reported Symptoms: INR Result As of 11/22/2020 INR goal: 2.0-3.0 INR used for dosing: Warfarin Plan As of 11/22/2020 Full warfarin instructions: 5 mg every day Next INR check: 11/25/2020 Additional Dosing Information: Repeat PT/INR in 3 day(s) Weekly dose: not changed Home Health: [facility] Ph: - orders called in for 11/25/20 Abena Moralez [facility] Clinical Pharmacist 11/22/2020, 1:26 PM * Joanna Linn OSA - 11/22/2020 1:19 PM EST Spoke with Sade at [facility], Stated patient was seen yesterday 11/21 and daughter told that patient was having PT/INR done today by mobile. No orders in chart for patient to have PT/INR done with mobile. [facility] is seeing patient again on 11/27,Sade stated they can move appointment sooner if needed, they will need orders called into them [facility] documented in this encounter Plan of Treatment Upcoming Encounters Date Type Specialty Care Team Description 11/22/2020 Telemedicine Family Medicine Roger Alexandra MD [address] [place] [address] [place] [address] [phone] Arrived Health Maintenance Due Date Last Done Comments Zoster Vaccines (1 of 2) 2010 *DEPRESSION SCREENING,ANNUAL FOR PTS 12 AND OVER 04/11/2015 BREAST CANCER SCREENING DISCUSSION YEARLY AGES 40-75 10/28/2016 10/28/2015, 04/27/2014, 05/12/2013, Additional history exists DTaP,Tdap,and Td Vaccines (2 - Td) 06/27/2018 06/27/2008 *DISCUSS TOBACCO CESSATION (REFER TO SMARTSET #[id number]) 01/04/2020 *ADVANCE DIRECTIVE NOT ON FILE 03/08/2020 [...] Documents on File Type Date Recorded Patient Pump Press Operator Expl 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
--- OUTSIDE RECORDS SUMMARY | 2023-07-25 05:08 | External Medical Summary | Summary of Care ---
Author Name Unknown Organization [place] [address] Care Team Providers Care Plaster Foreman Name Role Phone Roger Alexandra MD Primary Care Provider +1 [phone] Reason for Visit * Reason Comments Dosage Adjustment Via Phone (anticoag Cl inic) Encounter Details Date Type Department Care Team Description 11/06/2020 Anticoagulation Pharmacy, [facility] [address] [facility] [place] [address] [facility] [address] [facility] [place] [address] Paroxysmal atrial fibrillation (HCC)* Allergies Active Allergy Reactions Severity Noted Date Comments Aspirin Unknown 12/12/2007 von Willebrand's disease Salicylates 03/01/2000 von Willebrand's disease documented as of this encounter (statuses as of 11/06/2020) Medications Medication Sig Dispensed Refills Start Date [...] as of this encounter (statuses as of 11/06/2020) Active Problems Problem Noted Date Body mass [...] as of this encounter (statuses as of 11/06/2020) Resolved Problems Problem Noted Date Resolved Date [...] as of this encounter (statuses as of 11/06/2020) Immunizations Name Administration Dates Next Due H1N1 [...] Progress Notes * Abena Moralez RPh - 11/06/2020 2:49 PM EST Follow up for discharge in 1 day. Abena Moralez, Pharm D Clinical Pharmacist 11/06/2020, 2:49 PM * Angela Whalen TECH - 11/06/2020 2:46 PM EST Draw cancelled today from phleb. Pt admitted at [facility]. JOHNY Soriano documented in this encounter Plan of Treatment Upcoming Encounters Date Type Specialty Care Team Description 11/07/2020 Anticoagulation Pharmacy Heladio [facility] [address] [place] [address] 11/19/2020 Telemedicine Psychiatry Alisha Lilly, DO [address] [facility] [place] [address] Health Maintenance Due Date Last Done Comments Zoster Vaccines (1 of 2) 2010 *DEPRESSION SCREENING,ANNUAL FOR PTS 12 AND OVER 04/11/2015 BREAST CANCER SCREENING DISCUSSION YEARLY AGES 40-75 10/28/2016 10/28/2015, 04/27/2014, 05/12/2013, Additional history exists COLONOSCOPY-EVERY 5 YRS AGES 18-100 05/22/2018 05/22/2013, 08/21/2011, 10/06/2010 DTaP,Tdap,and Td Vaccines (2 - Td) 06/27/2018 [...] Documents on File Type Date Recorded Patient Relay Associate Expl 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
--- OUTSIDE RECORDS SUMMARY | 2023-07-25 05:08 | External Medical Summary | Summary of Care ---
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 06/01/2005 [...] Specialty Care Team Description 11/18/2020 [facility] [address] [place] [id number] 11/19/2020 [facility]medicine Psychiatry Alisha [facility], DO [address] [facility] [place] [address] Health Maintenance Due Date [...] Date/Time Associated Diagnosis Comments PATHOLOGY SCANNED RESULT 11/06/2020 documented in this encounter Results * PATHOLOGY SCANNED RESULT (11/06/2020) Specimen Narrative Performed At documented in this encounter Advance Directives Documents on File Type Date Recorded Patient Manager Drilling Expl anation Advanced Directive service a yohana [...]
--- OUTSIDE RECORDS SUMMARY | 2023-07-25 05:08 | External Medical Summary | Summary of Care ---
Author Name Unknown Organization [facility] Address [place] [address] Care Team Providers Care Box Cutter Name Role Phone Roger Alexandra MD Primary Care Provider +1 [phone] Encounter Details Date Type Department Care Team Description 11/06/2020 Telephone Gastroenterology, [facility] [address] [place] [address] Bam Kauffman, [address] [facility] [place] [address] [phone] Allergies Active Allergy Reactions Severity Noted Date Comments Aspirin Unknown 12/12/2007 von Willebrand's disease Salicylates 03/01/2000 von Willebrand's disease documented as of this encounter (statuses as of 11/11/2020) Medications Medication Sig Dispensed Refills Start Date [...] as of this encounter (statuses as of 11/11/2020) Active Problems Problem Noted Date Body mass [...] severe 04/06/2007 SIMA (generalized anxiety disorder) 02/08 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 * Telephone Encounter - Airam Hope OSA - 11/11/2020 9:33 AM EST Spoke with patient who is still admitted at [facility], states the she is to having a colonoscopy while she is admitted. A tiger text was sent to Barbara to check on this. * Telephone Encounter - Bam Kauffman DO - 11/06/2020 10:31 AM EST This patient needs to be scheduled for follow-up colonoscopy. Her last one was performed in 2012. She did recently present with melena thought to be related to over anticoagulation. Ideally this should be done within the next 6 to 8 weeks, tier 2 documented in this encounter Plan of Treatment Upcoming Encounters Date Type Specialty Care Team Description 11/11/2020 Anticoagulation Pharmacy Leija, [facility] 132 [facility] [place] [address] Paroxysmal atrial fibrillation (HCC)* 11/13/[address] [facility] [address] [facility] [place] [address] 11/19/2020 Telemedicine Psychiatry Alisha Lilly, [address] [place] [address] Scheduled Orders Name Type Priority Associated Diagnoses Orde r Schedule COLONOSCOPY, DIAGNOSTIC (RECTUM) Procedures Routine Adenomatous polyp of colon, unspecified part of colon Ordered: 11/06/2020 Health Maintenance Due Date Last Done Comments [...] as of this encounter Visit Diagnoses Diagnosis Adenomatous polyp of colon, unspecified part of colon- Primary Paroxysmal atrial fibrillation (HCC)- Primary Atrial fibrillation documented in this encounter Advance Directives Documents on File Type Date Recorded Patient Care Advocate Expl anation Advanced Directive service a yohana [...]
--- OUTSIDE RECORDS SUMMARY | 2023-07-25 05:08 | External Medical Summary | Summary of Care ---
Author Name Unknown Organization [place] [address] Care Team Providers Care Survey Statistician Name Role Phone Roger Alexandra MD Primary Care Provider [phone] [phone] Reason for Visit * Reason Comments Dosage Adjustment Via Phone (anticoag Cl inic) Encounter Details Date Type Department Care Team Description 11/07/2020 Anticoagulation Pharmacy, [facility] [address] [facility] [place] [address] [facility] [address] [facility] [place] [address] Paroxysmal atrial fibrillation (HCC)* Allergies Active Allergy Reactions Severity Noted Date Comments Aspirin Unknown 12/12/2007 von Willebrand's disease Salicylates 03/01/2000 von Willebrand's disease documented as of this encounter (statuses as of 11/07/2020) Medications Medication Sig Dispensed Refills Start Date [...] as of this encounter (statuses as of 11/07/2020) Active Problems Problem Noted Date Body mass [...] severe 04/06/2007 SIMA (generalized anxiety disorder) 02/08 care home current use of anticoagulant t herapy 06/01/2005 Overview: ICD-10 update of inactive term Irritable bowel syndrome with diarrhea 0 04/13/2001 Tobacco use disorder documented as of this encounter (statuses as of 11/07/2020) Resolved Problems Problem Noted Date Resolved Date [...] as of this encounter (statuses as of 11/07/2020) Immunizations Name Administration Dates Next Due H1N1 [...] Progress Notes * Abena Moralez RPh - 11/07/2020 9:48 AM EST Patient remains admitted at [facility]. Follow up for discharge in 4 days. Abena Moralez, Pharm D Clinical Pharmacist 11/07/2020, 9:49 AM documented in this encounter Plan of Treatment Upcoming Encounters Date Type Specialty Care Team Description 11/11/2020 Anticoagulation Pharmacy [facility]adio [facility] [address] [facility] [place] [address] 11/19/2020 Telemedicine Psychiatry Alisha Lilly, DO [address] [facility] [address] Health Maintenance Due [...] Documents on File Type Date Recorded Patient Harness Brusher Expl anation Advanced Directive service a yohana [...]
--- OUTSIDE RECORDS SUMMARY | 2023-07-25 05:08 | External Medical Summary | Summary of Care ---
Author Name Unknown Organization [place] [address] Care Team Providers Care Laboratory Equipment Installer Name Role Phone Roger Alexandra MD Primary Care Provider [phone] [phone] Reason for Visit * Reason Comments Dosage Adjustment Via Phone (anticoag Cl inic) Status Check Encounter Details Date Type Department Care Team Description 11/11/2020 Anticoagulation Pharmacy, [facility] 132 [facility] [place] [address] [facility] [address] [facility] [place] [address] Paroxysmal atrial fibrillation (HCC)* Allergies Active Allergy [...] severe 04/06/2007 SIMA (generalized anxiety disorder) 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 Follow up for discharge in 2 days. Abena Moralez, Pharm D Clinical Pharmacist 11/11/2020, 9:48 AM documented in this encounter Plan of Treatment Upcoming Encounters Date Type Specialty Care Team Description 11/13/2020 Anticoagulation Pharmacy [facility] [address] [facility] [place] [address] 11/19/2020 Telemedicine Psychiatry Alisha Lilly, DO [address] [facility] [place] [address] Health Maintenance Due Date [...] Documents on File Type Date Recorded Patient Protection Chief Industrial Plant Expl anation Advanced Directive service a yohana [...]
--- OUTSIDE RECORDS SUMMARY | 2023-07-25 05:08 | External Medical Summary | Summary of Care ---
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 06/01/2005 [...] Encounters Date Type Specialty Care Team Description 11/06/2020 Laboratory Laboratory Processing Hand, Lab Processing Mobile [address] [facility] [place] [address] longterm (current) use of anticoagulants* 11/06/2020 Anticoagulation Pharmacy Leija, [facility] [address] [facility] [place] [address] 11/19/2020 Telemedicine Psychiatry Alisha Lilly, [address] [facility] [place] [address] Health Maintenance [...] Procedure Name Priority Date/Time Associated Diagnosis Comments UPPER GI ENDOSCOPY 11/06/2020 documented in this encounter Results * UPPER GI ENDOSCOPY (11/06/2020) Specimen Narrative Performed At documented in this encounter Advance Directives Documents on File Type Date Recorded Patient Brand Designer Expl 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
--- OUTSIDE RECORDS SUMMARY | 2023-07-25 05:08 | External Medical Summary | Summary of Care ---
Author Name Unknown Organization [place] [address] Care Team Providers Care Graduate Fellow Name Role Phone Roger Alexandra MD Primary Care Provider [phone] -[phone] Reason for Visit * Reason Onset Date Comments FYI 11/17/2020 Encounter Details Date Type Department Care Team Description 11/17/2020 Telephone Family Practice [facility] [address] [place] [address] Roger Alexandra MD [address] [place] [address] [phone] FYI Allergies Active Allergy Reactions Severity Noted [...] severe 04/06/2007 SIMA (generalized anxiety disorder) 02/08 retirement current use of anticoagulant t herapy 06/01/2005 [...] encounter Miscellaneous Notes * Telephone Encounter - Hao Chadwick LPN - 11/18/2020 8:27 AM EST Routing below message as an FYI. * Telephone Encounter - Jasmin Kapoor OSA - 11/17/2020 1:43 PM EST HH calling. Pt was D/C from Hospital and it being picked back up for nursing, PT, and OT services. Pt is declining an aid at this time. documented in this encounter Plan of Treatment Upcoming Encounters Date Type Specialty Care Team Description 11/18/2020 Anticoagulation Pharmacy [facility] 132 [facility] [place] [address] 11/19/2020 Telemedicine Psychiatry Alisha Lilly, DO [address] [facility] [place] [address] Health Maintenance Due [...] Documents on File Type Date Recorded Patient Hem Marker Expl anation Advanced Directive service a yohana [...]
--- OUTSIDE RECORDS SUMMARY | 2023-07-25 05:08 | External Medical Summary | Summary of Care ---
Author Name Unknown Organization [facility] Address [place] [address] Care Team Providers Care Hot Braider Name Role Phone Roger Alexandra MD Primary Care Provider [phone] [phone] Reason for Visit * Reason Comments Dosage Adjustment Via Phone (anticoag Cl inic) Encounter Details Date Type Department Care Team Description 11/18/2020 Anticoagulation Pharmacy, [facility] 132 [facility] [place] [address] [facility] [address] [facility] [place] [address] Paroxysmal atrial fibrillation (HCC)* Allergies Active Allergy [...] AM EST Phone (Outgoing) Kimberly Kendall (Self) [phone] (M) Spoke to Patient Current Warfarin Dose As of 11/18/2020 Warfarin maintenance plan: 5 mg (10 mg x 0.5) every day Patient-Reported Symptoms: Patient Findings Positives: Hospital admission (Patient admitted to [facility] 11/04 of melena and INR 9.7. recieved [...] 22, 2020 Weekly dose: establishing Erin Pulliam [facility] Clinical Pharmacist 11/18/2020, 9:53 AM documented in this encounter Plan of Treatment Upcoming Encounters Date Type Specialty Care Team Description 11/19/2020 Telemedicine Psychiatry Alisha Lilly, DO [address] [place], [place] [id number] Health Maintenance Due Date Last Done Comments [...] on File Type Date Recorded Patient Manager Star Expl anation Advanced Directive service a yohana [...]
--- OUTSIDE RECORDS SUMMARY | 2023-07-25 05:08 | External Medical Summary | Summary of Care ---
Author Name Unknown Organization [place] [address] Care Team Providers Care Business Job Titles Name Role Phone Roger Alexandra MD Primary Care Provider [phone] [phone] Reason for Visit * Reason Comments Status Check Encounter Details Date Type Department Care Team Description 11/14/2020 Anticoagulation Pharmacy, [facility] 132 [facility] [place] [address] [facility] [address] [facility] [place] [address] Paroxysmal atrial fibrillation (HCC)* Allergies Active Allergy Reactions Severity Noted Date Comments Aspirin Unknown 12/12/2007 von Willebrand's disease Salicylates 03/01/2000 von Willebrand's disease documented as of this encounter (statuses as of 11/14/2020) Medications Medication Sig Dispensed Refills Start Date [...] as of this encounter (statuses as of 11/14/2020) Active Problems Problem Noted Date Body mass [...] severe 04/06/2007 SIMA (generalized anxiety disorder) 02/08 nursing home current use of anticoagulant t herapy 06/01/2005 Overview: ICD-10 update of inactive term Irritable bowel syndrome with diarrhea 0 04/13/2001 Tobacco use disorder documented as of this encounter (statuses as of 11/14/2020) Resolved Problems Problem Noted Date Resolved Date [...] as of this encounter (statuses as of 11/14/2020) Immunizations Name Administration Dates Next Due H1N1 [...] Progress Notes * Abena Moralez RPh - 11/14/2020 9:25 AM EST Patient remains admitted at [facility]. Follow up in 4 days for discharge. Abena Moralez, Pharm D Clinical Pharmacist 11/14/2020, 9:26 AM documented in this encounter Plan of Treatment Upcoming Encounters Date Type Specialty Care Team Description 11/18/2020 Anticoagulation Pharmacy [facility]adio [facility] 132 [facility] [place] [address] 11/19/2020 Telemedicine Psychiatry Alisha Lilly, DO [address] [facility] [place] [address] Health Maintenance Due Date Last [...] on File Type Date Recorded Patient Oil Heater Operator Expl 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
--- OUTSIDE RECORDS SUMMARY | 2023-07-25 05:08 | External Medical Summary | Summary of Care ---
Author Name Unknown Organization [place] [address] Care Team Providers Care Collar Sewer Name Role Phone Roger Alexandra MD Primary Care Provider [phone] [phone] Reason for Visit * Reason Comments Dosage Adjustment Via Phone (anticoag Cl inic) Encounter Details Date Type Department Care Team Description 11/13/2020 Anticoagulation Pharmacy, [facility] 132 [facility] [place] [address] [facility] [address] [facility] [place] [address] Paroxysmal atrial fibrillation (HCC)* Allergies Active Allergy Reactions Severity Noted Date Comments Aspirin Unknown 12/12/2007 von Willebrand's disease Salicylates 03/01/2000 von Willebrand's disease documented as of this encounter (statuses as of 11/13/2020) Medications Medication Sig Dispensed Refills Start Date [...] as of this encounter (statuses as of 11/13/2020) Active Problems Problem Noted Date Body mass [...] severe 04/06/2007 SIMA (generalized anxiety disorder) 02/08 skilled nursing current use of anticoagulant t herapy 06/01/2005 Overview: ICD-10 update of inactive term Irritable bowel syndrome with diarrhea 0 04/13/2001 Tobacco use disorder documented as of this encounter (statuses as of 11/13/2020) Resolved Problems Problem Noted Date Resolved Date [...] as of this encounter (statuses as of 11/13/2020) Immunizations Name Administration Dates Next Due H1N1 [...] Progress Notes * Abena Moralez RPh - 11/13/2020 8:51 AM EST Patient remains at [facility]. Follow up in 1 day with discharge. Abena Moralez, Pharm D Clinical Pharmacist 11/13/2020, 8:53 AM documented in this encounter Plan of Treatment Upcoming Encounters Date Type Specialty Care Team Description 11/14/2020 Anticoagulation Pharmacy Heladio [facility] 132 [facility] [place] [address] 11/19/2020 Telemedicine Psychiatry Alisha Lilly, DO [address] [facility] [place] [address] Health Maintenance Due Date [...] Documents on File Type Date Recorded Patient Solid Waste Collector Expl anation Advanced Directive service a yohana [...]
--- OUTSIDE RECORDS SUMMARY | 2023-07-25 05:08 | External Medical Summary | Summary of Care ---
Author Name Unknown Organization [facility] Address [place] [address] Care Team Providers Care Medical Case Manager Name Role Phone Roger Alexandra MD Primary Care Provider +1 -[phone] Encounter Details Date Type Department Care Team Description 11/05/2020 Scan Encounter Unspecified Department <No scans attached> [...] Specialty Care Team Description 11/11/2020 [facility] [address] [place] [address] Paroxysmal atrial fibrillation (HCC)* 11/13/2020 Anticoagulation Pharmacy Leija [facility] [address] [place] [address] 11/19/2020 Telemedicine Psychiatry Alisha Lilly, DO [address] [facility] [place] [address] Health Maintenance Due Date [...] Documents on File Type Date Recorded Patient Coal Handling Supervisor Expl 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
--- OUTSIDE RECORDS SUMMARY | 2023-07-25 05:08 | External Medical Summary | Summary of Care ---
Author Name Unknown Organization [place] [address] Care Team Providers Care Buckle Sewer Machine Name Role Phone Roger Alexandra MD Primary Care Provider +1 [phone] Encounter Details Date Type Department Care Team Description 11/12/2020 Orders Only Gastroenterology, [facility] 132 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 06/01/2005 Overview: ICD-10 update of inactive term Irritable bowel syndrome with diarrhea 0 04/13/2001 Tobacco use disorder documented as of this encounter (statuses as of 11/12/2020) Resolved Problems Problem Noted Date Resolved Date [...] as of this encounter (statuses as of 11/12/2020) Immunizations Name Administration Dates Next Due H1N1 [...] Specialty Care Team Description 11/13/2020 Anticoagulation Pharmacy Leija, [facility] [place] [address] [place] [address] 11/19/2020 Telemedicine Psychiatry Alisha Lilly, DO [address] [facility] [place] [address] Health Maintenance Due [...] Procedure Name Priority Date/Time Associated Diagnosis Comments SMALL BOWEL ENTEROSCOPY 11/12/2020 documented in this encounter Results * SMALL BOWEL ENTEROSCOPY (11/12/2020) Specimen Narrative Performed At documented in this encounter Advance Directives Documents on File Type Date Recorded Patient Pile Driver Operator Helper Expl anation Advanced Directive service a [...]
--- OUTSIDE RECORDS SUMMARY | 2023-07-25 05:08 | External Medical Summary | Summary of Care ---
Author Name Unknown Organization [facility] Address [place] [address] Care Team Providers Care Strategic Sourcing Manager Name Role Phone Roger Alexandra MD Primary Care Provider +1 [phone] Encounter Details Date Type Department Care Team Description 11/06/2020 Result Scan Gastroenterology, [facility] 132 [facility] [place] [address] Bam Kauffman, 132 [facility] [place] [address] [phone] <No scans attached> Allergies Active Allergy Reactions [...] Specialty Care Team Description 11/11/2020 Anticoagulation Pharmacy [facility] 132 [facility] [place] [address] Paroxysmal atrial fibrillation (HCC)* 11/13/2020 Anticoagulation Pharmacy [facility] 132 [facility] [place] [address] 11/19/2020 Telemedicine Psychiatry Alisha Lilly, DO 100 [...] Documents on File Type Date Recorded Patient Audit Control Clerk Expl 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
--- OUTSIDE RECORDS SUMMARY | 2023-07-25 05:08 | External Medical Summary | Summary of Care ---
Author Name Unknown Organization [facility] Address [place] [address] Care Team Providers Care Pattern Grader Supervisor Name Role Phone Roger Alexandra MD Primary Care Provider +1 [phone] Encounter Details Date Type Department Care Team Description 11/06/2020 Telephone Gastroenterology, [facility] [address] [place] [address] Bam Kauffman, 132 [facility] [place] [address] [phone] Allergies Active Allergy Reactions Severity Noted Date [...] severe 04/06/2007 SIMA (generalized anxiety disorder) 02/08 out of town collection clerk current use of anticoagulant t herapy [...] Telephone Encounter - Mohit Cain OSA - 11/12/2020 10:57 AM EST Spoke w/ Barbara Lee, procedure tentatively scheduled [facility] today at [facility] as [facility]. * Telephone Encounter - Mohit Cain OSA - 11/11/2020 10:08 AM EST Colon to be done today while pt is inhouse at [facility]. * Telephone Encounter - Airam Hope OSA - 11/11/2020 9:33 AM EST Spoke with patient who is still admitted at [facility], states the she is to having [...] Care Team Description 11/13/2020 Anticoagulation Pharmacy [place], [facility] [place] 132 [facility] [place] [id number] 11/19/2020 Telemedicine Psychiatry Alisha Lilly DO [address] [place] [id number] Scheduled Orders Name Type Priority Associated Diagnoses [...] of colon, unspecified part of colon- Primary documented in this encounter Advance Directives Documents on File Type Date Recorded Patient Counting Machine Operator Expl 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
--- OUTSIDE RECORDS SUMMARY | 2023-07-25 05:08 | External Medical Summary | Summary of Care ---
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 [...] encounter Miscellaneous Notes * Telephone Encounter - Bam Kauffman DO [...] Care Team Description 11/06/2020 Laboratory Laboratory Processing [place], Lab Processing Mobile [address] [place] [address] relay technician (current) use of anticoagulants* 11/06/2020 Anticoagulation Pharmacy [place] [address] [address] 11/19/2020 Telemedicine Psychiatry Alisha Lilly DO [address] [place] [address] Scheduled Orders Name Type Priority [...] of this encounter Visit Diagnoses Diagnosis [facility]FP (current) use of anticoagulants- Primary Long-term (current) use of anticoagulants Adenomatous polyp of colon, unspecified part of colon- Primary documented in this encounter Advance Directives Documents on File Type Date Recorded Patient Research Specialist Expl anation Advanced Directive service a [...]
--- OUTSIDE RECORDS SUMMARY | 2023-07-25 05:08 | External Medical Summary | Summary of Care ---
Author Name Unknown Organization [facility] Address [place] [address] Care Team Providers Care Supervisor Scenic Arts Name Role Phone Roger Alexandra MD Primary Care Provider [phone] [phone] Encounter Details Date Type Department Care Team Description 11/06/2020 Telephone Gastroenterology, [facility] [address] [place] [address] Bam Kauffman, 132 [facility] [place] [address] [phone] Allergies Active Allergy Reactions Severity Noted Date [...] update of inactive term COPD, severe 04/06/2007 SMIA (generalized anxiety disorder) 02/08 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 current use of anticoagulant t herapy 06/01/2005 [...] Miscellaneous Notes * Telephone Encounter - Airam Hope OSA - 11/11/2020 9:33 AM EST Spoke with patient who is still admitted at [facility], states the she is to having a [...] Specialty Care Team Description 11/11/2020 Anticoagulation Pharmacy [facility], [facility] [address] [place] [id number] 11/19/2020 Telemedicine Psychiatry Alisha Lilly DO [address] [facility] [place] [address] Scheduled Orders Name Type Priority Associated [...] Documents on File Type Date Recorded Patient Nuclear Auxiliary Operator Expl anation Advanced Directive service a [...]
--- OUTSIDE RECORDS SUMMARY | 2023-07-25 05:08 | External Medical Summary | Summary of Care ---
Author Name Unknown Organization [place] [address] Care Team Providers Care Webfocus Developer Name Role Phone Roger Alexandra MD Primary Care Provider [phone] [phone] Encounter Details Date Type Department Care Team Description 11/12/2020 Result Scan Gastroenterology, [facility] 132 [facility] [place] [address] Shaneka Santiago MD 132 [facility] [place] [address] [phone] <No scans attached> Allergies Active Allergy Reactions [...] Specialty Care Team Description 11/14/2020 Anticoagulation Pharmacy [facility] 132 [facility] [place] [address] Paroxysmal atrial fibrillation (HCC)* 11/18/2020 Anticoagulation Pharmacy [facility] 132 [facility] [place] [address] 11/19/2020 Telemedicine Psychiatry Alisha Lilly, DO [address] [facility] [place] [address] Health Maintenance Due [...] Date/Time Associated Diagnosis Comments PATHOLOGY SCANNED RESULT 11/12/2020 documented in this encounter Results * PATHOLOGY SCANNED RESULT (11/12/2020) Specimen Narrative Performed At documented in this encounter Advance Directives Documents on File Type Date Recorded Patient Pattern Carrier Expl anation Advanced Directive service a yohana [...]
--- OUTSIDE RECORDS SUMMARY | 2023-07-25 05:09 | External Medical Summary | Summary of Care ---
Author Name Unknown Organization [place] [address] Care Team Providers Care Filing And Polishing Supervisor Name Role Phone Roger Alexandra MD Primary Care Provider [phone] [phone] Reason for Visit * Reason Onset Date Comments Order Request 10/21/2020 Encounter Details Date Type Department Care Team Description 10/21/2020 Telephone Family Practice [facility] [address] [place] [address] Roger Alexandra MD 132 [facility] [place] [address] [phone] Order Request Allergies Active Allergy Reactions Severity Noted Date Comments Aspirin Unknown 12/12/2007 von Willebrand's disease Salicylates 03/01/2000 von Willebrand's disease documented as of this encounter (statuses as of 10/22/2020) Medications Medication Sig Dispensed Refills Start Date [...] a day. 18 g 1 03/26/2020 Active guaiFENesin-codein e (ROBITUSSIN AC) 100-10 MG/5ML syrupIndications:B ronchitis, complicated Take 5 mL by mouth every 4 hours as needed for Cough. 120 mL 0 03/26/2020 Active ondansetron (ZOFRAN) 4 MG Tablet Take 1 Tab by mouth every 8 hours as needed for Nausea. 15 Tab 0 06/07/2020 Active hydrOXYzine HCl 50 MG Tablet Take 1 Tab by mouth 3 times a day as needed for Anxiety. 60 Tab 3 07/15/2020 Active sertraline (ZOLOFT) 100 MG Tablet Take 1.5 Tabs by mouth daily. 45 Tab 2 07/24/2020 Active Albuterol Sulfate (2.5 MG/3ML) 0.083% Inhalation [...] leg swelling). 30 Tab 1 10/16/2020 Active Cephalexin 500 MG Oral Capsule (Keflex)Indication s:Cellulitis of left lower extremity Take 1 Cap by mouth 2 times a day for 10 days. 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 * Telephone Encounter - Michelle Casas OSA - 10/21/2020 4:34 PM EST An order was requested for this patient. Name of Requesting Provider: [facility] Order Requested: SHOWER CHAIR Diagnosis/Reason for Request: COPE, ASTHMA, HEART FAILURE, SAFETY Does the order need to be faxed somewhere? YES If so, where?: [facility] [place] Fax Number, if applicable: [phone] Call Back Number: [phone] documented in this encounter Plan of Treatment Upcoming Encounters Date Type Specialty Care Team Description 10/22/2020 Cardiac Studies Cardiac Studies Gw, Funeral Service Practitioner/Embalmer 2 132 [facility] [place] [address] [phone] 11/19/2020 Telemedicine Psychiatry Alisha Lilly, DO [address] [place] [id number] Health Maintenance Due Date Last Done Comments [...] classified Oxygen dependent Dependence on supplemental oxygen documented in this encounter Advance Directives Documents on File Type Date Recorded Patient Account Administrator Expl anation Advanced Directive service a [...]
--- OUTSIDE RECORDS SUMMARY | 2023-07-25 05:09 | External Medical Summary | Summary of Care ---
Author Name Unknown Organization [place] [address] Care Team Providers Care Chemical Laboratory Technician Name Role Phone Roger Alexandra MD Primary Care Provider [phone] [phone] Reason for Visit * Reason Comments Dosage Adjustment Via Phone (anticoag Cl inic) Encounter Details Date Type Department Care Team Description 11/05/2020 Anticoagulation Pharmacy, [facility] 132 [facility] [place] [address] [facility] 132 [facility] [place] [address] Paroxysmal atrial fibrillation (HCC)* Allergies Active Allergy Reactions Severity Noted Date Comments Aspirin Unknown 12/12/2007 von Willebrand's disease Salicylates 03/01/2000 von Willebrand's disease documented as of this encounter (statuses as of 11/05/2020) Medications Medication Sig Dispensed Refills Start Date [...] as of this encounter (statuses as of 11/05/2020) Active Problems Problem Noted Date Body mass [...] as of this encounter (statuses as of 11/05/2020) Resolved Problems Problem Noted Date Resolved Date [...] as of this encounter (statuses as of 11/05/2020) Immunizations Name Administration Dates Next Due H1N1 [...] Progress Notes * Abena Moralez RPh - 11/05/2020 3:29 PM EST Noted Abena Moralez, Pharm D Clinical Pharmacist 11/05/2020, 3:29 PM * Emmanuel Riley OSA - 11/05/2020 3:17 PM EST Per schedule- GML has todays' visit r/s'd for tomorrow 11/06. Thank you, Emmanuel Riley [facility] Aviation Mechanic I documented in this encounter Plan of Treatment Upcoming Encounters Date Type Specialty Care Team Description 11/05/2020 Laboratory Laboratory Processing [place], Lab Processing Mobile [address] [place] [address] intermediate (current) use of anticoagulants* 11/06/2020 Laboratory Laboratory Processing [place], Lab Processing Mobile [address] [place] [address] 11/06/2020 Anticoagulation Pharmacy [address] [id number] 11/19/2020 Telemedicine Psychiatry Alisha Lilly DO [address] [place] [address] [phone] Health Maintenance Due Date Last Done Comments [...] Paroxysmal atrial fibrillation (HCC)- Primary Atrial fibrillation 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
--- OUTSIDE RECORDS SUMMARY | 2023-07-25 05:09 | External Medical Summary | Summary of Care ---
Author Name Unknown Organization [facility] Address [address] Care Team Providers Care Director Intelligence Analysis Programs Name Role Phone Roger Alexandra MD Primary Care Provider [phone] [phone] Reason for Visit * Reason Onset Date Comments Cardiology Study 10/22/2020 Echo * Precert (Routine) Status Reason Specialty Diagnoses / Procedures Referred By Contact Referred To Contact Pending Review Precert Cardiac Studies Diagnoses Elevated brain natriuretic peptide (BNP) level Bilateral leg edema Procedures ECHO, COMPLETE (2D), TRANS-THORACIC [facility] [address] Encounter Details Date Type Department Care Team Description 10/22/2020 Cardiac Studies Cardiac Studies, [facility] 132 [facility] [place] [address] Gw, Hand Shoe Cutter 2 132 [facility] [place] [address] [phone] Elevated brain natriuretic peptide (BNP) level*; Bilateral leg edema Allergies Active Allergy Reactions Severity Noted Date [...] of this encounter Progress Notes * Juan Pablo Zhou RN - 10/22/2020 4:25 PM EST Echo completed today by coroner technician per provider order. Definity ultrasound contrast employed to enhance left ventricular endocardial border definition. Verbal informed consent was obtained from patient for use of Definity ultrasound contrast. IV access obtained left antecubital area using # 22 gaugedevice under aseptic technique with two attempts made. Sterile dressing applied. Catheter flushed with NSS to assure patency. At conclusion of imaging, IV access discontinued with catheter removed intact. Sterile dressing applied. No bruising, bleeding, or hematoma noted at site. Definity one vial diluted in NSS to total volume of 10 ml. Total of 4.0 ml of solution solution administered during imaging. Patient asymptomatic at time of departure from department. Definity [facility] 69912-272-22; Lot [id number]; Exp. [id number]. Prior to administration of ultrasound contrast, microcavitation injection X 1 was performed using same intravenous access site. documented in this encounter Plan of Treatment Upcoming Encounters Date Type Specialty Care Team Description 11/19/2020 Telemedicine Psychiatry Alisha Lilly, DO [address] [place], [place] [id number] Health Maintenance Due Date Last Done Comments [...] Procedure Name Priority Date/Time Associated Diagnosis Comments ECHO, COMPLETE (2D), TRANS-THORACIC Routine 10/22/2020 2:22 PM EST Elevated brain natriuretic peptide (BNP) level Bilateral leg edema documented in this encounter Results * ECHO, COMPLETE (2D), TRANS-THORACIC (10/22/2020 2:22 PM EST) LEFT VENTRICULAR EJECTION FRACTION 55 % [facility] Specimen [facility] documented in this encounter Visit Diagnoses Diagnosis Elevated brain natriuretic peptide (BNP) level- Primary Other nonspecific findings on examination of blood Bilateral leg edema Edema documented in this encounter Advance Directives Documents on File Type Date Recorded Patient Plate Painter Expl anation Advanced Directive service a [...]
--- OUTSIDE RECORDS SUMMARY | 2023-07-25 05:09 | External Medical Summary | Summary of Care ---
Author Name Unknown Organization [place] [address] Care Team Providers Care Insurance Loss Assessor Name Role Phone Roger Alexandra MD Primary Care Provider [phone] [phone] Reason for Visit * Reason Onset Date Comments Referral 10/22/2020 request by HH Encounter Details Date Type Department Care Team Description 10/22/2020 Telephone Internal Medicine [address] [id number] Roger Alexandra MD 132 [place] [address] [phone] Referral (request by HH) Allergies Active Allergy Reactions Severity Noted Date Comments Aspirin Unknown 12/12/2007 von Willebrand's disease Salicylates 03/01/2000 von Willebrand's disease documented as of this encounter (statuses as of 10/24/2020) Medications Medication Sig Dispensed Refills Start Date [...] as of this encounter (statuses as of 10/24/2020) Active Problems Problem Noted Date Grade I diastolic dysfunction 10/23/2020 Overview: Noted [...] severe 04/06/2007 SIMA (generalized anxiety disorder) 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 * Telephone Encounter - Temi West LPN - 10/22/2020 10:40 AM EST Gracie calling from [facility] States that she is trying to get pt additional help. Asking for a hospice social worker referral for their medical team to eval and see if the pt can be qualified for additional assistance. Please fax referral to [phone] documented in this encounter Plan of Treatment Upcoming Encounters Date Type Specialty Care Team Description 10/24/2020 [facility] 132 [facility] [place] [address] 11/19/2020 Telemedicine Psychiatry Alisha Lilly, DO [facility] [address] Health [...] Documents on File Type Date Recorded Patient Timekeeper Expl anation Advanced Directive service a yohana [...]
--- OUTSIDE RECORDS SUMMARY | 2023-07-25 05:09 | External Medical Summary ---
Author Name Unknown Address [facility] [address] [facility] [place] [address] Phone Organization K01:[place] [address] [address] [facility] [place] [address] Laboratory Report Ordering Provider Test Date Status STEFANI MARINELLI 10/24/2020 11:02:00 Final Observation Date Value Abnormality Reference (Units ) Status PT 10/24/2020 14:37 18.7 Above high normal 11.5- 14.6 (seconds) Final INR 10/24/2020 14:37 1.54 Above high normal 0.84- 1.14 Final Performing Location [facility] [address] [facility] [address]
--- OUTSIDE RECORDS SUMMARY | 2023-07-25 05:09 | External Medical Summary | Summary of Care ---
Author Name Unknown Organization [facility] Address [place] [address] Care Team Providers Care Front Desk Team Member Name Role Phone Roger Alexandra MD Primary Care Provider [phone] -[phone] Encounter Details Date Type Department Care Team Description 11/04/2020 Scan Encounter Unspecified Department <No scans attached> [...] severe 04/06/2007 SIMA (generalized anxiety disorder) 02/08 assisted current use of anticoagulant t herapy 06/01/2005 [...] Care Team Description 11/06/2020 Laboratory Laboratory Processing [place], Lab Processing Mobile [address] [place] [address] 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
--- OUTSIDE RECORDS SUMMARY | 2023-07-25 05:09 | External Medical Summary | Summary of Care ---
Author Name Unknown [place] [address] Care Team Providers Care Staff Developer Name Role Phone Roger Alexandra MD Primary Care Provider +1 -[phone] Reason for Visit * Reason Onset Date Comments case management 10/22/[address] [facility] # 1 Encounter Details Date Type Department Care Team Description 10/22/2020 Clinical Resource Coordinator Telephone Family Practice [facility] 132 [facility] [place] [address] Cordelia Burns, RN 132 [place] [address] [phone] case management (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 #1. LMOM documented in this encounter Plan of Treatment Upcoming Encounters Date Type Specialty Care Team Description 10/22/2020 Cardiac Studies Cardiac Studies , Finishing Room Supervisor 2 132 [facility] [place] [address] [phone] 11/19/2020 Telemedicine Psychiatry Alisha Lilly, DO [address] [place] [facility] [place] [address] Health Maintenance Due Date Last [...] Documents on File Type Date Recorded Patient Electric Motor Controls Assembler Expl anation Advanced Directive service a [...]
--- OUTSIDE RECORDS SUMMARY | 2023-07-25 05:09 | External Medical Summary | Summary of Care ---
Author Name Unknown Organization [facility] Address [place] [address] Care Team Providers Care Avionic Technician Name Role Phone Roger Alexandra MD Primary Care Provider +1 -[phone] Encounter Details Date Type Department Care Team [...] Care Team Description 11/06/2020 Laboratory Laboratory Processing [place], Lab Processing Mobile [address] [facility] [place] [address] artillery or naval gunfire observer (current) use of anticoagulants* 11/06/2020 Anticoagulation Pharmacy [facility] [place] [address] [place] [address] 11/19/2020 Telemedicine Psychiatry Alisha Lilly, DO [address] [facility] [place] [address] Health Maintenance Due [...] Documents on File Type Date Recorded Patient Welt Slasher Expl anation Advanced Directive service a yohana [...]
--- OUTSIDE RECORDS SUMMARY | 2023-07-25 05:09 | External Medical Summary | Summary of Care ---
Author Name Unknown Organization [place] [address] Care Team Providers Care Chemical Educator Name Role Phone Roger Alexandra MD Primary Care Provider [phone] [phone] Reason for Visit * Reason Comments Dosage Adjustment Via Phone (anticoag Cl inic) Encounter Details Date Type Department Care Team Description 10/25/2020 Anticoagulation Pharmacy, [facility] [address] [facility] [place] [address] [facility] [address] [facility] [place] [address] Paroxysmal atrial fibrillation (HCC)* Allergies Active Allergy Reactions Severity Noted Date Comments Aspirin Unknown 12/12/2007 von Willebrand's disease Salicylates 03/01/2000 von Willebrand's disease documented as of this encounter (statuses as of 10/25/2020) Medications Medication Sig Dispensed Refills Start Date [...] days. 20 Cap 0 10/17/2020 10/27/2020 Active Sertraline HCl 100 MG Oral Tablet (ZOLOFT) Take 1.5 Tabs by mouth daily. 45 Tab 2 10/22/2020 Active Sulfamethoxazole-T rimethoprim 800-160 MG Oral Tablet (Bactrim DS) Take 1 Tab by mouth 2 times a day for 3 days. Until gone 6 Tab 0 10/25/2020 10/28/2020 Active documented as of this encounter (statuses as of 10/25/2020) Active Problems Problem Noted Date Grade I [...] as of this encounter (statuses as of 10/25/2020) Resolved Problems Problem Noted Date Resolved Date [...] as of this encounter (statuses as of 10/25/2020) Immunizations Name Administration Dates Next Due H1N1 [...] Progress Notes * Abena Moralez RPh - 10/25/2020 3:11 PM EST Patient on bactrim DS BID x 3 days. Recommending to hold her couamdin tomorrow 10/26/20 and then resume current dose. Patient Phone Numbers [email or web address] [phone] Spoke to patient and family via phone. Reviewed the above and she states understanding. Abena Moralez, Pharm D Clinical Pharmacist 10/25/2020, 3:14 PM documented in this encounter Plan of Treatment Upcoming Encounters Date Type Specialty Care Team Description 10/31/2020 [address] [address] 11/19/2020 Telemedicine Psychiatry Alisha Lilly, DO [address] [facility] [place] [...] Documents on File Type Date Recorded Patient Ladle Liner Expl anation Advanced Directive service a [...]
--- OUTSIDE RECORDS SUMMARY | 2023-07-25 05:09 | External Medical Summary ---
Author Name Unknown Address [facility] [address] [facility] [place] [address] Phone Organization K01:[place] [address] [place] [id number] Laboratory Report Ordering Provider Test Date Status STEFANI MARINELLI 11/05/2020 00:54:00 Final Observation Date Value Abnormality Reference (Units ) Status PT 11/10/2020 08:29 TEST REQUESTED BUT SPECIMEN NOT RECEIVED 11.5-14.6 (seconds) Final INR 11/10/2020 08:29 TEST REQUESTED BUT SPECIMEN NOT RECEIVED 0.84-1.14 Final Performing Location [facility] [address] [facility] [address]
--- OUTSIDE RECORDS SUMMARY | 2023-07-25 05:09 | External Medical Summary | Summary of Care ---
Author Name Unknown Organization [place] [address] Care Team Providers Care Mold Breaker Name Role Phone Roger Alexandra MD Primary Care Provider [phone] Reason for Visit * Reason Onset Date Comments Order Request 10/21/2020 Encounter Details Date Type Department Care Team Description 10/21/2020 Telephone Family Practice [facility] [address] [place] [address] Roger Alexandra MD [address] [facility] [place] [address] [phone] Order Request Allergies Active Allergy Reactions Severity [...] 04/06/2007 SIMA (generalized anxiety disorder) 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 Name of Requesting Provider: [facility] Order Requested: SHOWER CHAIR Diagnosis/Reason for Request: COPE, ASTHMA, HEART FAILURE, SAFETY Does the order need to be faxed somewhere? YES If so, where?: [facility] [place] Fax Number, if applicable: [phone] Call Back Number: [phone] documented in this encounter Plan of Treatment Upcoming Encounters Date Type Specialty Care Team Description 10/22/2020 Cardiac Studies Cardiac Studies Gw, Supplier Quality Engineer 2 [address] [facility] [place] [address] [phone] 11/19/2020 Telemedicine Psychiatry Alisha Lilly, DO [address] [place] [id number] Health Maintenance Due Date Last Done Comments [...] Documents on File Type Date Recorded Patient Corner Brace Block Machine Operator Expl 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
--- OUTSIDE RECORDS SUMMARY | 2023-07-25 05:09 | External Medical Summary | Summary of Care ---
Author Name Unknown Organization [place] [address] Care Team Providers Care Metal Trades Instructor Name Role Phone Roger Alexandra MD Primary Care Provider [phone] Reason for Visit * Reason Onset Date Comments Medication Question 10/25/2020 Encounter Details Date Type Department Care Team Description 10/25/2020 Telephone Psychiatry, [place] [address] [place] [address] Alisha Lilly, [address] [place], [place] [id number] Medication Question Allergies Active Allergy Reactions Severity Noted Date Comments Aspirin Unknown 12/12/2007 von Willebrand's disease Salicylates 03/01/2000 von Willebrand's disease documented as of this encounter (statuses as of 10/28/2020) Medications Medication Sig Dispensed Refills Start Date [...] as of this encounter (statuses as of 10/28/2020) Active Problems Problem Noted Date Grade I [...] severe 04/06/2007 SIMA (generalized anxiety disorder) 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 Pt did not answer. Left message stating I am returning her call. Also noted that pt has UTI and that can be affecting mood and to possibly wait to see how she is feeling until after treatment for UTI. If pt does not wish to wait, asked pt to call us back with a few times she might be reachable. * Telephone Encounter - Renata Quintana OSA - 10/25/2020 5:06 PM EST Patient of Dr. Alisha Lilly Patient calling requesting to change or adjust medications. Seems like nothing is helping her. She has been in the hospiatl previously. Patient crying stating that her anxiety is very bad and she seems to be always nervous. Please advise. documented in this encounter Plan of Treatment Upcoming Encounters Date Type Specialty Care Team Description 10/31/2020 Anticoagulation Pharmacy [facility] [address] [place] [address] 11/19/2020 Telemedicine Psychiatry Alisha Lilly, DO [address] [facility] [place] [address] Health Maintenance Due [...] Documents on File Type Date Recorded Patient Computer Video Game Designer Expl anation Advanced Directive service a [...]
--- OUTSIDE RECORDS SUMMARY | 2023-07-25 05:09 | External Medical Summary | Summary of Care ---
Author Name Unknown Organization [place] [address] Care Team Providers Care Meal Miller Name Role Phone Roger Alexandra MD Primary Care Provider [phone] Reason for Visit * Reason Onset Date Comments FYI 10/21/2020 Encounter Details Date Type Department Care Team Description 10/21/2020 Telephone Family Practice [facility] [address] [place] [address] Roger Alexandra MD [address] [facility] [place] [address] [phone] FYI Allergies Active Allergy Reactions Severity Noted Date Comments Aspirin Unknown 12/12/2007 von Willebrand's disease Salicylates 03/01/2000 von Willebrand's disease documented as of this encounter (statuses as of 10/21/2020) Medications Medication Sig Dispensed Refills Start Date [...] as of this encounter (statuses as of 10/21/2020) Active Problems Problem Noted Date Drug-seeking behavior [...] 04/06/2007 SIMA (generalized anxiety disorder) 02/08 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 current use of anticoagulant t herapy 06/01/2005 Overview: ICD-10 update of inactive term Irritable bowel syndrome with diarrhea 0 04/13/2001 Tobacco use disorder documented as of this encounter (statuses as of 10/21/2020) Resolved Problems Problem Noted Date Resolved Date [...] as of this encounter (statuses as of 10/21/2020) Immunizations Name Administration Dates Next Due H1N1 [...] encounter Miscellaneous Notes * Telephone Encounter - Michelle Casas OSA - 10/21/2020 4:36 PM GUNNAR Brittney from [facility] called asking us to fax the order for a bedside commode over to [facility]. Order was faxed to Siomara at [phone]. Thank you documented in this encounter Plan of Treatment Upcoming Encounters Date Type Specialty Care Team Description 10/22/2020 Cardiac Studies Cardiac Studies , Agriculture Scientist 2 [address] [facility] [place] [address] [phone] 11/19/2020 Telemedicine Psychiatry Alisha Lilly, DO [address] [facility] [place] [address] Health Maintenance Due Date Last [...] Documents on File Type Date Recorded Patient Software Administrator Expl anation Advanced Directive service a [...]
--- OUTSIDE RECORDS SUMMARY | 2023-07-25 05:09 | External Medical Summary | Summary of Care ---
Author Name Unknown Organization [facility] [place] [address] Care Team Providers Care Claims Examiner Name Role Phone Roger Alexandra MD Primary Care Provider [phone] Encounter Details Date Type Department Care Team [...] Care Team Description 11/05/2020 Laboratory Laboratory Processing [place], Lab Processing Mobile [address] [facility] [place] [address] terminal system operator (current) use of anticoagulants* 11/05/2020 Anticoagulation Pharmacy [facility] [address] [place] [address] 11/19/2020 Telemedicine Psychiatry Alisha Lilly, DO [address] [facility] [place] [address] Health Maintenance [...] Documents on File Type Date Recorded Patient Delimer Expl anation Advanced Directive service a yohana [...]
--- OUTSIDE RECORDS SUMMARY | 2023-07-25 05:09 | External Medical Summary | Summary of Care ---
Author Name Unknown Organization [place] [address] Care Team Providers Care Bulk Sealer Name Role Phone Roger Alexandra MD Primary Care Provider [phone] Reason for Visit * Reason Onset Date Comments case management 10/24/2020 Ongoing leg pain Encounter Details Date Type Department Care Team Description 10/24/2020 Curtain Cutter Hand Telephone Family Practice [facility] [address] [place] [address] Cordelia Burns, EMELY 132 [facility] [place] [address] [phone] case management (Ongoing leg pain) Allergies Active Allergy Reactions Severity Noted Date [...] Miscellaneous Notes * Telephone Encounter - Cordelia Burns, RN - 10/24/2020 3:46 PM EST SITUATION: Calling into office today for results of Echo, which we reviewed the other day. States that she can not remember the password to get in to the [employer] system. "Why do I bother no ones cares anyhow" Then she says not you to the person in the background. I then asked if not that person she was frustrated and said you, in referring to the doctors office. BACKGROUND: cellulitis ASSESSMENT: Pt reports that her breathing is worse when she is up and moving. Using oxygen. Pain in leg and hip "makes it hard to sleep." Pt then reports that the doctor did not even see her for a hospital follow up appt. Advised patientthat she was seen via telemedicine on 10/[address] Alexandra for a hospital follow up. She saw Dr Henao on 10/17 with cellulitis, still has 2 days of antibiotics, she thinks. Pt is going from crying to raising her voice and about how much stress she is under. States that she can not have her kids taking her to doctors appts all the time. She resides very close to the facility on [address] Reports that HHN was there today, everything was ok. States that she will just get drunk, and that will help everything. RECOMMENDATION: CM reviewed Echo results EF 55-59% (Normal) Advised patient that she was seen via telemedicine on 10/[address] Alexandra for a hospital follow up. She saw Dr Henao on 10/17 with cellulitis, still has 2 days of antibiotics she thinks. Offered to scheduled a follow up appt regarding her legs not getting better, when she has transportation. She declines on multiple occasions, states that they won't do anything any way. Discussed that alcohol will only help short term and issues will be there when she nadine up and may be worse. Encouraged patient to have leg looked at, advised that this is not something that can be addressed by telemedicine and that she was not happy that her post discharge appt was Telemed. When advised ithas to be requested to be scheduled that way she blamed "[facility]" for scheduling that way. Cordelia Burns RN (Kori), BSN, [facility] [place] [facility] Curtain Cutter Hand [phone] documented in this encounter Plan of Treatment Upcoming Encounters Date Type Specialty Care Team Description 10/24/2020 Anticoagulation Pharmacy [facility] [address] [place] [address] Paroxysmal atrial fibrillation (HCC)* 10/31/2020 Anticoagulation Pharmacy [facility] [address] [facility] [place] [address] 11/19/2020 Telemedicine Psychiatry Alisha Lilly, DO [address] [facility] [address] Health Maintenance Due Date Last Done [...] on File Type Date Recorded Patient Leather Sponger Expl anation Advanced Directive service a yohana [...]
--- OUTSIDE RECORDS SUMMARY | 2023-07-25 05:09 | External Medical Summary | Summary of Care ---
Author Name Unknown Organization [place] [address] Care Team Providers Care Field Auto Appraiser Name Role Phone Roger Alexandra MD Primary Care Provider [phone] Reason for Visit * Reason Comments Dosage Adjustment Via Phone (anticoag Cl inic) Encounter Details Date Type Department Care Team Description 10/24/2020 Anticoagulation Pharmacy, [facility] [address] [place] [address] [address] Paroxysmal atrial fibrillation (HCC)* Allergies Active Allergy [...] Progress Notes * Abena Moralez RPh - 10/24/2020 3:19 PM EST Medication Therapy Disease Management - Anticoagulation Patient: Kimberly Barillassher : 1960 Contacts Type Contact Phone 10/24/2020 03:18 PM EST Phone (Outgoing) Enoch Kimberly Hung (Self) [phone] (H) Left Message Current Warfarin Dose As of 10/24/2020 Warfarin maintenance plan: 5 mg (10 mg x 0.5) every Mon, Wed, Fri; 10 mg (10 mg x 1) all other days Patient-Reported Symptoms: INR Result As of 10/24/2020 INR goal: 2.0-3.0 INR used for dosin.54 (10/24/2020) Warfarin Plan As of 10/24/2020 Full warfarin instructions: 10/24: 15 mg; Otherwise 5 mg every Mon, Wed, Fri; 10 mg all other days Next INR check: 10/31/2020 Additional Dosing Information: Repeat PT/INR in 1 week(s) on 10/31 via [facility] home phleb Weekly dose: not changed Abena Moralez formerly [facility] Clinical Pharmacist 10/24/2020, 3:19 PM documented in this encounter Plan of Treatment Upcoming Encounters Date Type Specialty Care Team Description 11/19/2020 Telemedicine Psychiatry Alisha Lilly, DO [address] [place] [address] Health Maintenance Due Date Last [...] Documents on File Type Date Recorded Patient Molded Rubber Goods Cutter Expl anation Advanced Directive service a [...]
--- OUTSIDE RECORDS SUMMARY | 2023-07-25 05:09 | External Medical Summary | Summary of Care ---
Author Name Unknown Organization [place] [address] Care Team Providers Care Poster Name Role Phone Roger Alexandra MD Primary Care Provider [phone] Reason for Visit * Reason Onset Date Comments Advice 10/21/2020 Encounter Details Date Type Department Care Team Description 10/21/2020 Telephone Family Practice [facility] [address] [place] [address] Roger Alexandra MD [address] [facility] [place] [address] [phone] Advice Allergies Active Allergy Reactions Severity Noted [...] severe 04/06/2007 SIMA (generalized anxiety disorder) 02/08 bed bug exterminator current use of anticoagulant t herapy [...] Telephone Encounter - Hao Chadwick LPN - 10/21/2020 10:43 AM EST Gracie is calling form [facility] regarding the pt. Pt is continuing to have wheezing in her lungs. Reports that this is not abnormal for the pt. Pt isusing nebulizer QID. Pt is experiencing pain (06/24) in L hip and leg. They are working with the pt with PT. Pt is taking Tylenol for the pain, but they are concerned that the pt may be taking too much tylenol. Asking if there is anything that can be prescribed for the pt's pain so that she is not taking so much Tylenol. Pt states that she was experiencing some burning with urination yesterday. Pt just started abx for cellulitis that they are unsure if this may clear any UTI that may have stated or if the pt needs tohave a urine specimen tested. Please advise. Requesting that any new orders be faxed to them at: [phone]. Call back number, if needed: documented in this encounter Plan of Treatment Upcoming Encounters Date Type Specialty Care Team Description 10/31/2020 Anticoagulation Pharmacy [facility] [address] [place] [address] 11/19/2020 Telemedicine Psychiatry Alisha Lilly, DO [address] [facility] [place] [address] Health Maintenance Due [...] Documents on File Type Date Recorded Patient Boiler Mechanic Expl anation Advanced Directive service a [...]
--- OUTSIDE RECORDS SUMMARY | 2023-07-25 05:09 | External Medical Summary | Summary of Care ---
Author Name Unknown Organization [place] [address] Care Team Providers Care Signal Intelligence Analyst Name Role Phone Roger Alexandra MD Primary Care Provider [phone] Reason for Visit * Reason Comments Appointment Encounter Details Date Type Department Care Team Description 10/31/2020 Anticoagulation Pharmacy, [facility] [address] [facility] [place] [address] [facility] [address] [facility] [place] [address] Paroxysmal atrial fibrillation (HCC)* Allergies Active Allergy Reactions Severity Noted Date Comments Aspirin Unknown 12/12/2007 von Willebrand's disease Salicylates 03/01/2000 von Willebrand's disease documented as of this encounter (statuses as of 10/31/2020) Medications Medication Sig Dispensed Refills Start Date [...] as of this encounter (statuses as of 10/31/2020) Active Problems Problem Noted Date Body mass [...] as of this encounter (statuses as of 10/31/2020) Resolved Problems Problem Noted Date Resolved Date [...] as of this encounter (statuses as of 10/31/2020) Immunizations Name Administration Dates Next Due H1N1 [...] this encounter Progress Notes * Abena Moralez [facility] - 10/31/2020 3:35 PM EST I agree with documented plan of care. Abena Moralez, Pharm D Clinical Pharmacist 10/31/2020, 3:35 PM * Alen Gong OSA - 10/31/2020 3:34 PM EST Patient Phone Numbers Patients GML appointment has been rescheduled to 11/05 per Katarina at Client services. documented in this encounter Plan of Treatment Upcoming Encounters Date Type Specialty Care Team Description 11/19/2020 Telemedicine Psychiatry Alisha Lilly, DO [address] [place] [address] Health Maintenance Due Date Last [...] Documents on File Type Date Recorded Patient Electromechanical Equipment Tester Expl anation Advanced Directive service a [...]
--- OUTSIDE RECORDS SUMMARY | 2023-07-25 05:09 | External Medical Summary | Summary of Care ---
Author Name Unknown Organization [place] [address] Care Team Providers Care Production Proofreader Name Role Phone Roger Alexandra MD Primary Care Provider [phone] Reason for Visit * Reason Onset Date Comments case management 10/23/2020 CM FU Encounter Details Date Type Department Care Team Description 10/23/2020 Recruiting Manager Telephone Family Practice [facility] [address] [facility] [place] [address] Cordelia Burns, EMELY 132 [place] [address] [phone] case management (CM FU) Allergies Active Allergy Reactions Severity Noted Date Comments Aspirin Unknown 12/12/2007 von Willebrand's disease Salicylates 03/01/2000 von Willebrand's disease documented as of this encounter (statuses as of 10/23/2020) Medications Medication Sig Dispensed Refills Start Date [...] as of this encounter (statuses as of 10/23/2020) Active Problems Problem Noted Date Drug-seeking behavior [...] as of this encounter (statuses as of 10/23/2020) Resolved Problems Problem Noted Date Resolved Date [...] as of this encounter (statuses as of 10/23/2020) Immunizations Name Administration Dates Next Due H1N1 [...] Telephone Encounter - Cordelia Burns RN - 10/23/2020 10:07 AM EST SITUATION: Pt frustrated on the phone today, "maybe I should have stayed at [facility] a little longer." "I don't know why Dr Alexandra will not order the [facility] ordered it and they only gave me 7." BACKGROUND: Pt admitted to [facility] 09/22-10/09, discharged to home with services. ASSESSMENT: Call to patient today she is crying or almost crying on the phone today. Breathing verylabored on the phone at the beginning of the conversation. It is less labored during phone call. Dry hacking coughing occasionally while on the phone. Reports using nebulizer 4 times per day. Pt reports that she has pain in her legs and it has not changed. Then tells me she has pain in her legs and her hips and the medicine that she has been given (Tylenol) does not help. Reports that she is taking lasix daily, unclear if accurate. Wt yesterday 257 lbs, when asked what she normally weighs, states that she does not know. Has not weighed today. RECOMMENDATION: Recommended appt, patient is not able to come to the office today or tomorrow. CM will reach out to [facility] for date for next visit, SN, PT to visit with patient tomorrow. Request a call from to discuss plan at home and if patient is as acute as she describes. Pain medications discussed. Emotional support. Note to CM to reach out to patient. Cordelia Burns RN (Kori), BSN, CCM [place] Recruiting Manager [phone] documented in this encounter Plan of Treatment Upcoming Encounters Date Type Specialty Care Team Description 10/24/2020 Laboratory Laboratory Processing [place], Lab Processing Mobile [address] [place] [address] 11/19/2020 Telemedicine Psychiatry Alisha Lilly, [address] [place] [address] [phone] Health Maintenance Due Date Last Done Comments [...] Documents on File Type Date Recorded Patient Axle Inspector Expl anation Advanced Directive service a [...]
--- OUTSIDE RECORDS SUMMARY | 2023-07-25 05:10 | External Medical Summary | Summary of Care ---
Author Name Unknown Organization [place] [address] Care Team Providers Care Baker Test Name Role Phone Roger Alexandra MD Primary Care Provider [phone] [phone] Reason for Visit * Reason Comments Dosage Adjustment Via Phone (anticoag Cl inic) Encounter Details Date Type Department Care Team Description 10/14/2020 Anticoagulation Pharmacy, [facility] [address] [place] [address] [facility] [address] [place] [address] Cerebrovascular disease, arteriosclerotic, post-stroke* Allergies Active Allergy Reactions Severity Noted Date Comments Aspirin Unknown 12/12/2007 von Willebrand's disease Salicylates 03/01/2000 von Willebrand's disease documented as of this encounter (statuses as of 10/14/2020) Medications Medication Sig Dispensed Refills Start Date [...] mg by mouth daily. 0 10/08/2020 Active documented as of this encounter (statuses as of 10/14/2020) Active Problems Problem Noted Date Non compliance w medication regimen 09/17 Chronic bilateral low back pain without sciatica 10/14/2020 Paroxysmal atrial fibrillation 0 Moderate episode of recurrent major depr essive disorder 03/05/2020 Morbid obesity due to excess calories Oxygen dependent 12/29/2019 Acquired hypothyroidism 04/16/2015 Narcotic addiction 10/04/2014 Idiopathic cardiomyopathy 09/15/2013 Von Willebrand disease 03/10/2013 Cerebrovascular disease, arterioscleroti c, post-stroke 02/26/2009 Overview: Modified per CVA protocol #8 Patent foramen ovale 12/21/2008 Obstructive sleep apnea 07/05/2007 Overview: ICD-10 update of inactive term COPD, severe 04/06/2007 SIMA (generalized anxiety disorder) 02/08 assisted current use of anticoagulant t herapy 06/01/2005 Overview: ICD-10 update of inactive term Tobacco use disorder documented as of this encounter (statuses as of 10/14/2020) Resolved Problems Problem Noted Date Resolved Date [...] determined 10/24/2009 05/01/2011 Overview: Per Lipid Taxonomy. Chest pain 01/23/2009 05/01/2011 Chest pain, non-cardiac [...] UNSPECIFIED 07/19/2002 02/06/2010 Overview: Per Obesity Taxonomy Irritable bowel syndrome 04/13/2001 020 Depression with anxiety 03/05/20 20 EXT ASTHMA W-O STAT ASTH 010 documented as of this encounter (statuses as of 10/14/2020) Immunizations Name Administration Dates Next Due H1N1 [...] of this encounter Progress Notes * Abena Moralez, [facility] - 10/14/2020 3:50 PM EST I agree with documented plan of care. Abena Morlaez, Pharm D Clinical Pharmacist 10/14/2020, 3:50 PM * Angela Whalen TECH - 10/14/2020 3:49 PM EST Spoke with Karl at client services. Pt is scheduled for 10/17 for pt/inr draw. JOHNY Soriano documented in this encounter Plan of Treatment Upcoming Encounters Date Type Specialty Care Team Description 10/17/2020 Anticoagulation Pharmacy [place], [facility] [address] [place] [address] 11/19/2020 [facility]medicine Psychiatry Alisha Lilly, DO [address] [facility] [address] Health Maintenance Due Date Last Done Comments Zoster Vaccines (1 of 2) 2010 *DEPRESSION SCREENING,ANNUAL FOR PTS 12 AND OVER 04/11/2015 *O2 ASSESSMENT COMPLETED IN PAST YEAR FOR COPD 09/07/2016 BREAST CANCER SCREENING DISCUSSION YEARLY AGES 40-75 [...] SCREEN EVERY 3 YRS-AGE 45 AND ABOVE 12/29/2022 12/29/2019, 05/25/2016, 03/17/2016, Additional history exists Pneumococcal Vaccine: Pediatrics (0 [...] Documents on File Type Date Recorded Patient Career Professional Expl anation Advanced Directive service a [...]
--- OUTSIDE RECORDS SUMMARY | 2023-07-25 05:10 | External Medical Summary | Summary of Care ---
Author Name Unknown Organization [place] [address] Care Team Providers Care Inspector Barrel Name Role Phone Roger Alexandra MD Primary Care Provider [phone] [phone] Reason for Referral * Precert (Routine) Status Reason Specialty Diagnoses / Procedures Referred By Contact Referred To Contact Pending Review Precert Cardiac Studies Diagnoses Elevated brain natriuretic peptide (BNP) level Bilateral leg edema Procedures ECHO, COMPLETE (2D), TRANS-THORACIC David Henao MD [address] [place] [address] Reason for Visit * Reason Onset Date Comments Abnormal Lab Results 10/18/2020 Encounter Details Date Type Department Care Team Description 10/18/2020 Telephone Family Practice [facility] [address] [place] [address] David Henao MD [address] [facility] [place] [address] [phone] Abnormal Lab Results Allergies Active Allergy Reactions Severity Noted Date Comments Aspirin Unknown 12/12/2007 von Willebrand's disease Salicylates 03/01/2000 von Willebrand's disease documented as of this encounter (statuses as of 10/18/2020) Medications Medication Sig Dispensed Refills Start Date [...] as of this encounter (statuses as of 10/18/2020) Active Problems Problem Noted Date Drug-seeking behavior [...] as of this encounter (statuses as of 10/18/2020) Resolved Problems Problem Noted Date Resolved Date [...] as of this encounter (statuses as of 10/18/2020) Immunizations Name Administration Dates Next Due H1N1 [...] Telephone Encounter - Cordelia Burns RN - 10/18/2020 10:46 AM EST Discussed with patient. * Telephone Encounter - David Henao MD - 10/18/2020 9:21 AM EST Recent results appreciated - Elevated Pro BNP With increased LE edema and B/L rales at bases will order ECHO Have spoken with CM who will help organize MD ANDREA Denton Dr Alexandra documented in this encounter Plan of Treatment Upcoming Encounters Date Type Specialty Care Team Description 11/19/2020 Telemedicine Psychiatry Alisha Lilly, DO [address] [place] [address] Scheduled Orders Name Type Priority Associated Diagnoses Orde r Schedule ECHO, COMPLETE (2D), TRANS-THORACIC Echocardiology Routine Elevated brain natriuretic peptide (BNP) level Bilateral leg edema Expected: 10/18/2020, Expires: 11/18/2022 Health Maintenance Due Date Last Done Comments [...] as of this encounter Visit Diagnoses Diagnosis Elevated brain natriuretic peptide (BNP) level- Primary Other nonspecific findings on examination of blood Bilateral leg edema Edema documented in this encounter Advance Directives Documents on File Type Date Recorded Patient Scaffold Erector Expl anation Advanced Directive service a yohana [...]
--- OUTSIDE RECORDS SUMMARY | 2023-07-25 05:10 | External Medical Summary | Summary of Care ---
Author Name Unknown Organization [place] [address] Care Team Providers Care Control Systems Designer Name Role Phone Roger Alexandra MD Primary Care Provider [phone] Reason for Visit * Reason Comments Dosage Adjustment Via Phone (anticoag Cl inic) Encounter Details Date Type Department Care Team Description 10/17/2020 Anticoagulation Pharmacy, [facility] [address] [place] [address] [facility] [address] [place] [address] Paroxysmal atrial fibrillation (HCC)* Allergies Active Allergy Reactions Severity Noted Date Comments Aspirin Unknown 12/12/2007 von Willebrand's disease Salicylates 03/01/2000 von Willebrand's disease documented as of this encounter (statuses as of 10/17/2020) Medications Medication Sig Dispensed Refills Start Date [...] leg swelling). 30 Tab 1 10/16/2020 Active documented as of this encounter (statuses as of 10/17/2020) Active Problems Problem Noted Date Drug-seeking behavior [...] as of this encounter (statuses as of 10/17/2020) Resolved Problems Problem Noted Date Resolved Date [...] as of this encounter (statuses as of 10/17/2020) Immunizations Name Administration Dates Next Due H1N1 [...] Progress Notes * Erin Pulliam RPh - 10/17/2020 3:32 PM EST Medication Therapy Disease Management - Anticoagulation Patient: Kimberly Kendall : 1960 Contacts Type Contact Phone 10/17/2020 03:33 PM EST Phone (Outgoing) Kimberly Kendall (Self) [phone] (H) Left Message 10/17/2020 03:41 PM EST Phone (Outgoing) Kimberly Kendall (Self) [phone] (M) Left Message - detailed message with dosing provided. Patient to call back with any concerns or questions Current Warfarin Dose As of 10/17/2020 Warfarin maintenance plan: 5 mg (10 mg x 0.5) every Mon, Wed, Fri; 10 mg (10 mg x 1) all other days Patient-Reported Symptoms: INR Result As of 10/17/2020 INR goal: 2.0-3.0 INR used for dosin.47 (10/17/2020) Warfarin Plan As of 10/17/2020 Full warfarin instructions: 5 mg every Mon, Wed, Fri; 10 mg all other days Next INR check: Additional Dosing Information: Repeat PT/INR in 1 week(s) Weekly dose: decreased based on the amount of warfarin that she was receiving while admitted and INR upon discharge was within range. Erin Pulliam [facility] Clinical Pharmacist 10/17/2020, 3:43 PM documented in this encounter Plan of Treatment Upcoming Encounters Date Type Specialty Care Team Description 11/19/2020 Telemedicine Psychiatry Alisha Lilly, DO [address] [facility] [address] Health Maintenance Due Date Last [...] Documents on File Type Date Recorded Patient Gas Maker Expl anation Advanced Directive service a [...]
--- OUTSIDE RECORDS SUMMARY | 2023-07-25 05:10 | External Medical Summary | Summary of Care ---
Author Name Unknown Organization [place] [address] Care Team Providers Care Attractions Associate Name Role Phone Roger Alexandra MD Primary Care Provider [phone] [phone] Reason for Referral * Precert (Routine) Status Reason Specialty Diagnoses / Procedures Referred By Contact Referred To Contact Pending Review Precert Cardiac Studies Diagnoses Elevated brain natriuretic peptide (BNP) level Bilateral leg edema Procedures ECHO, COMPLETE (2D), TRANS-THORACIC David Henao MD [address] [place] [address] Reason for Visit * Reason Onset Date Comments Abnormal Lab Results 10/18/2020 Encounter Details Date Type Department Care Team Description 10/18/2020 Telephone Family Practice [facility] [address] [place] [address] David Henao MD 21 [facility] [place] [address] [phone] Abnormal Lab Results Allergies Active Allergy Reactions [...] encounter Miscellaneous Notes * Telephone Encounter - David Henao MD - 10/18/2020 9:21 AM EST Recent results appreciated - Elevated Pro BNP With increased LE edema and B/L rales at bases will order ECHO Have spoken with CM who will help organize MD MATT Denton Dr documented in this encounter Plan of Treatment Upcoming Encounters Date Type Specialty Care Team Description 11/19/2020 Telemedicine Psychiatry Alisha Lilly, DO [address] [place], [place] [id number] Scheduled Orders Name Type Priority Associated Diagnoses [...] Documents on File Type Date Recorded 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
--- OUTSIDE RECORDS SUMMARY | 2023-07-25 05:10 | External Medical Summary | Summary of Care ---
Author Name Unknown Organization [place] [address] Care Team Providers Care Cfo Name Role Phone Roger Alexandra MD Primary Care Provider [phone] [phone] Reason for Visit * Reason Comments Edema left leg swelling st arted a couple of days ago. Painful, edema. Skin cool to touch. Pain into hip Encounter Details Date Type Department Care Team Description 10/17/2020 Office Visit Family Practice [facility] [address] [place] [address] David Henao MD 21 [facility] [place] [id number] Cellulitis of left lower extremity*; Bilateral leg edema Allergies Active Allergy Reactions [...] Reading Time Taken Comments Blood Pressure 118/78 10/17/2020 2:59 PM EST Pulse 88 10/17/2020 2:59 PM EST Temperature 37.3 C (99.2 F) 10/17/2020 2:[address] Respiratory Rate - - Oxygen Saturation 92% 10/17/2020 2:59 PM EST Inhaled Oxygen Concentration - - Weight 116.6 kg (257 lb 2 oz) 10/17/2020 2:59 PM EST Height - - Body Mass Index 47.03 12/29/2019 9:30 AM EST documented in this encounter Progress Notes * David Henao MD - 10/17/2020 3:07 PM EST Subjective: Kimberly Kendall is a 60 year old female. Chief Complaint Patient presents with Edema left leg swelling started a couple of days ago. Painful, edema. Skin cool to touch. Pain into hip HPI: Kimberly Kendall is here with increased swelling and redness at lower left leg. Left leg has become increasingly tender to touch. Denies any fever or chills. Has lasix ordered for weight gain or swelling and has not used yet. Breathing is stable and is oxygen dependant. BP Readings from Last 4 Encounters: 10/17/20 118/78 12/29/19 122/72 05/26/16 110/60 04/24/16 118/72 Wt Readings from Last 3 Encounters: 10/17/20 116.6 kg (257 lb 2 oz) 12/29/19 108.1 kg (238 lb 6.4 oz) 05/26/16 107.5 kg (237 lb) Review of Systems Constitutional: Positive for unexpected weight change. HENT: Negative. Respiratory: Positive for cough, shortness of breath and wheezing. Cardiovascular: Positive for leg swelling. Gastrointestinal: Negative. Genitourinary: Negative. Skin: Positive for color change (lower leg). Neurological: Negative. Hematological: Negative. Psychiatric/Behavioral: Negative. All other systems reviewed and are negative. All other systems negative except what is noted in HPI Medical history updated in electronic medical record as appropriate including medication list, problem list, family and social histories. Patient Active Problem List Diagnosis Code Irritable bowel syndrome with diarrhea K58.0 shelter current use of anticoagulant therapy Z79.01 Tobacco use disorder F17.200 SIMA (generalized anxiety disorder) F41.1 COPD, severe ([facility]) J44.9 Obstructive sleep apnea G47.33 Patent foramen ovale Q21.1 Von Willebrand disease ([facility]) D68.0 Idiopathic cardiomyopathy ([facility]) I42.8 Narcotic addiction ([facility]) F11.20 Acquired hypothyroidism E03.9 Oxygen dependent Z99.81 Moderate episode of recurrent major depressive disorder ([facility]) F33.1 Morbid obesity due to excess calories ([facility]) E66.01 Non compliance w medication regimen Z91.14 Chronic bilateral low back pain without sciatica M54.5, G89.29 Paroxysmal atrial fibrillation ([facility]) I48.0 Drug-seeking behavior Z76.5 History of multiple strokes Z86.73 Current Outpatient Medications Medication Sig Dispense Refill Furosemide 20 MG Oral Tablet (Lasix) Take 1 Tab by mouth daily as needed (3 lb weight gain or leg swelling). 30 Tab 1 Isosorbide Mononitrate ER 30 MG Oral Tablet Extended Release 24 Hour (IMDUR) Take 30 mg by mouth daily. LORazepam 0.5 MG Oral Tablet (Ativan) Take 1 Tab by mouth 2 times a day as needed for Anxiety. 60 Tab 0 Mirtazapine 30 MG Oral Tablet (REMERON) Take [...] as needed for Wheezing. 20 mL 1 sertraline (ZOLOFT) 100 MG Tablet Take 1.5 Tabs by mouth daily. 45 Tab 2 hydrOXYzine HCl 50 MG Tablet Take 1 [...] von Willebrand's disease Salicylates von Willebrand's disease Objective: BP 118/78 | Pulse 88 | Temp 37.3 C (99.2 F) (Tympanic) | Wt 116.6 kg (257 lb 2 oz) | SpO2 92% |BMI 47.03 kg/m | BSA 2.26 m Physical Exam Constitutional: Appearance: Normal appearance. HENT: Head: Normocephalic. Eyes: Pupils: Pupils are equal, round, and reactive to light. Neck: Musculoskeletal: Normal range of motion. Cardiovascular: Rate and Rhythm: Normal rate and regular rhythm. Heart sounds: No murmur. Pulmonary: Effort: Pulmonary effort is normal. Breath sounds: Rhonchi (at bases B/L) present. Abdominal: Palpations: Abdomen is soft. Musculoskeletal: General: Swelling present. Left lower leg: She exhibits tenderness and swelling. Edema present. Neurological: Mental Status: She is alert. Impression: Cellulitis of left lower extremity (Primary) - CBC/DIFF; Future; Expected date: 10/17/2020 - Cephalexin 500 MG Oral Capsule (Keflex); Take 1 Cap by mouth 2 times a day for 10 days. - BASIC METAB PANEL, BMP; Future; Expected date: 10/17/2020 Bilateral leg edema - BNP (NT-PRO-BNP); Future; Expected date: 10/17/2020 - BASIC METAB PANEL, BMP; Future; Expected date: 10/17/2020 Summary: Encourage use of Lasix. Add ABX to treat infection Follow labs Follow up - with PCP and CM David Henao MD documented in this encounter Plan of Treatment Upcoming Encounters Date Type Specialty Care Team Description 10/17/2020 Laboratory Laboratory [place], [facility] [address] [facility] [place] [address] [phone] Cellulitis of left lower extremity; Bilateral leg edema 10/17/2020 [facility] [address] [facility] [place] [address] Paroxysmal atrial fibrillation (HCC)* 11/19/2020 Telemedicine Psychiatry Alisha Lilly, DO [address] [place] [address] Pending Results Name Type Priority Associated Diagnoses Date /Time CBC/DIFF Lab Routine Cellulitis of left lower extremity 10/17/2020 3:39 PM EST BNP (NT-PRO-BNP) Lab Routine Bilateral leg edema 10/17/2020 3:39 PM EST BASIC METAB PANEL, BMP Lab Routine Cellulitis of left lower extremity Bilateral leg edema 10/17/2020 3:39 PM EST Scheduled Orders Name Type Priority Associated Diagnoses Orde r Schedule CBC/DIFF Lab Routine Cellulitis of left lower extremity Expected: 10/17/2020 (Approximate), Expires: 10/17/2021 BNP (NT-PRO-BNP) Lab Routine Bilateral leg edema Expected: 10/17/2020 (Approximate), Expires: 10/17/2021 BASIC METAB PANEL, BMP Lab Routine Cellulitis of left lower extremity Bilateral leg edema Expected: 10/17/2020 (Approximate), Expires: 10/17/2021 Health Maintenance Due Date Last Done Comments [...] Paroxysmal atrial fibrillation (HCC)- Primary Atrial fibrillation Cellulitis of left lower extremity- Primary Cellulitis and abscess of leg, except foot Bilateral leg edema Edema Cellulitis of left lower extremity Cellulitis and abscess of leg, except foot Bilateral leg edema Edema documented in this encounter Advance Directives Documents on File Type Date Recorded 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
--- OUTSIDE RECORDS SUMMARY | 2023-07-25 05:10 | External Medical Summary | Summary of Care ---
Author Name Unknown Organization [place] [address] Care Team Providers Care Market Stall Vendor Name Role Phone Roger Alexandra MD Primary Care Provider [phone] [phone] Reason for Visit * Reason Onset Date Comments Encounter Created in Error 10/17/2020 Encounter Details Date Type Department Care Team Description 10/17/2020 Telephone RN NURSE TRIAGE [address] [place] [address] Aliya Suh RN Encounter created in error Allergies Active Allergy Reactions Severity Noted Date [...] of 10/17/2020) Active Problems Problem Noted Date Non compliance [...] severe 04/06/2007 SIMA (generalized anxiety disorder) 02/08 [facility] current use of anticoagulant t herapy 06/01/2005 [...] encounter Miscellaneous Notes * Telephone Encounter - Aliya Suh RN - 10/17/2020 10:20 AM EST This encounter was created in error. 10/17/2020, 10:30 AM, Aliya Suh RN documented in this encounter Plan of Treatment Upcoming Encounters Date Type Specialty Care Team Description 10/17/2020 Office Visit Family Medicine [facility]o MD [address] [facility] [place] [address] 10/17/2020 Anticoagulation Pharmacy [facility] [address] [facility] [place] [address] 11/19/2020 Telemedicine Psychiatry Alisha Lilly, DO [address] [facility] [place] [address] Health Maintenance Due [...] of this encounter Visit Diagnoses Diagnosis Encounter Created In Error- Primary documented in this encounter Advance Directives Documents on File Type Date Recorded 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
--- OUTSIDE RECORDS SUMMARY | 2023-07-25 05:10 | External Medical Summary ---
Author Name Unknown Address [address] [facility] [place] Phone Organization K01:[facility] [address] [facility] [address] Laboratory Report Ordering Provider Test Date Status ALTAGRACIA MALIK 10/17/2020 15:40:00 Final Observation Date Value Abnormality Reference (Units ) Status BUN 10/18/2020 01:30 10 6-20 (mg/dL) Final Creatinine 10/18/2020 01:30 0.7 0.5-1.0 (mg/ dL) Final E Glom Filt Rate 10/18/2020 01:30 >60.0 >60 Final Performing Location [facility] [address] [facility] [address]
--- OUTSIDE RECORDS SUMMARY | 2023-07-25 05:10 | External Medical Summary | Summary of Care ---
Author Name Unknown Organization [place] [address] Care Team Providers Care Veterinary Virus Serum Inspector Name Role Phone Roger Alexandra MD Primary Care Provider [phone] Reason for Visit * Reason Onset Date Comments Medication Refill 10/11/2020 Encounter Details Date Type Department Care Team Description 10/11/2020 Refill [facility], [place] [address] [place] [address] Alisha Lilly, [address] [place] [address] [phone] Allergies Active Allergy Reactions Severity Noted Date Comments Aspirin Unknown 12/12/2007 von Willebrand's disease Salicylates 03/01/2000 von Willebrand's disease documented as of this encounter (statuses as of 10/11/2020) Medications Medication Sig Dispensed Refills Start Date [...] anticoagulation pharmacist. 60 Tab 2 09/04/2020 Active Azithromycin 250 MG Oral Tablet (Zithromax Z-Jax) Take two tablets by mouth on first day, then 1 tablet daily until gone 6 Tab 0 09/04/2020 Active guaiFENesin-Codei ne 100-10 MG/5ML Oral Syrup (ROBITUSSIN AC)Indications:CO PD, severe (HCC) Take 5 mL by mouth every 4 hours as needed for Cough. 120 mL 0 09/04/2020 Active Mirtazapine 30 MG Oral Tablet (REMERON) Take 1 Tab by mouth at bedtime. 30 Tab 1 09/16/2020 Active LORazepam 0.5 MG Oral Tablet (Ativan) Take 1 Tab by mouth 2 times a day as needed for Anxiety. 60 Tab 0 10/11/2020 Active LORazepam 0.5 MG Oral Tablet (Ativan) Take 1 Tab by mouth 2 times a day as needed for Anxiety. 60 Tab 0 08/15/2020 0 Discontinue d(Refill) documented as of this encounter (statuses as of 10/11/2020) Active Problems Problem Noted Date Hemiplegia 06/07/2020 Moderate episode of recurrent major depr essive disorder 03/05/2020 Morbid obesity due to excess calories Oxygen dependent 12/29/2019 Acquired hypothyroidism 04/16/2015 Narcotic addiction 10/04/2014 Idiopathic cardiomyopathy 09/15/2013 Von Willebrand disease 03/10/2013 Disc disorder of lumbar region 0 Cerebrovascular disease, arterioscleroti c, post-stroke 02/26/2009 Overview: Modified per CVA protocol #8 Patent foramen ovale 12/21/2008 Obstructive sleep apnea 07/05/2007 Overview: ICD-10 update of inactive term COPD, severe 04/06/2007 SIMA (generalized anxiety disorder) 02/08 shelter current use of anticoagulant t herapy 06/01/2005 Overview: ICD-10 update of inactive term Tobacco use disorder documented as of this encounter (statuses as of 10/11/2020) Resolved Problems Problem Noted Date Resolved Date Venous stasis 04/16/2015 12/29/2019 MEDICATION USE AGREEMENT [...] BMI) 02/06/2010 03/05/2020 Overview: Per Obesity Taxonomy Dyslipidemia, goal to be determined 10/24/2009 05/01/2011 [...] as of this encounter (statuses as of 10/11/2020) Immunizations Name Administration Dates Next Due H1N1 [...] encounter Miscellaneous Notes * Telephone Encounter - Anabela Purvis MD - 10/11/2020 4:51 PM EST Signed Prescriptions: Disp Refills LORazepam 0.5 MG Oral Tablet (Ativan) 60 Tab 0 Sig: Take 1 Tab by mouth 2 times a day as needed for Anxiety. Authorizing Provider: ANABELA PURVIS * Telephone Encounter - Renata Quintana OSA - 10/11/2020 4:32 PM EST [address] of [facility] Alisha [facility] requesting refill on Ativan. Patient last seen on 07/24/2020 with return appointment scheduled for 11/19/2020. Patient had 0 cancelled appointments and 0 NO SHOW appointments. Medication was last filled on 08/15/2020 with 0 refills. documented in this encounter Plan of Treatment Upcoming Encounters Date Type Specialty Care Team Description 10/11/[address] 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
--- OUTSIDE RECORDS SUMMARY | 2023-07-25 05:10 | External Medical Summary | Summary of Care ---
Author Name Unknown Organization [place] [address] Care Team Providers Care Hr Associate Name Role Phone Roger Alexandra MD Primary Care Provider [phone] Reason for Visit * Reason Onset Date Comments Advice 10/18/2020 Leg pain Encounter Details Date Type Department Care Team Description 10/18/2020 Mechanics Supervisor Telephone Family Practice [facility] [address] [place] [address] Roger Alexandra MD [address] [facility] [place] [address] [phone] Advice (Leg pain) Allergies Active Allergy Reactions Severity Noted [...] severe 04/06/2007 SIMA (generalized anxiety disorder) 02/08 group home current use of anticoagulant t herapy [...] encounter Miscellaneous Notes * Telephone Encounter - Brittney Wilde DO - 10/18/2020 4:29 PM EST Addressed in different encounter Cont Lasix Cool compresses, elevation of legs Defer pain mgt to pcp * Telephone Encounter - Cordelia Burns RN - 10/18/2020 12:08 PM EST FU to visit with Dr Henao yesterday. Patient crying on phone today. Reports that her legs are very painful and swollen. She has been taking 5-6 Tylenol at a time with no relief, discussed correct dosing. Pt reports she did take an SL this AM and it has not helped either. Encouraged to elevate legs, deep breathing exercises. Take medications as prescribed, including, Lasix, which she did take today (has not been taking). Please advise any further direction. documented in this encounter Plan of Treatment Upcoming Encounters Date Type Specialty Care Team Description 10/22/2020 Cardiac Studies Cardiac Studies , Pattern Attendant 2 [address] [facility] [place] [address] [phone] 11/19/2020 Telemedicine Psychiatry Alisha Lilly, [address] [facility] [place] [address] Health Maintenance Due [...] Documents on File Type Date Recorded Patient Climbing Guide Expl anation Advanced Directive service a yohana [...]
--- OUTSIDE RECORDS SUMMARY | 2023-07-25 05:10 | External Medical Summary | Summary of Care ---
Author Name Unknown Organization [place] [address] Care Team Providers Care Hospital Education Coordinator Name Role Phone Roger Alexandra MD Primary Care Provider [phone] Reason for Referral * Precert (Routine) Status Reason Specialty Diagnoses / Procedures Referred By Contact Referred To Contact Pending Review Precert Cardiac Studies Diagnoses Elevated brain natriuretic peptide (BNP) level Bilateral leg edema Procedures ECHO, COMPLETE (2D), TRANS-THORACIC David Henao MD [address] [place] [address] Reason for Visit * Reason Onset Date Comments Abnormal Lab Results 10/18/2020 Encounter Details Date Type Department Care Team Description 10/18/2020 Telephone Family Practice [facility] [address] [place] [address] David Henao MD 21 [facility] [place] [address] [phone] Abnormal Lab Results Allergies Active Allergy Reactions [...] Telemedicine Psychiatry Alisha Lilly, DO [address] [place], [place] [id number] Scheduled Orders Name Type Priority Associated Diagnoses [...] on File Type Date Recorded 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
--- OUTSIDE RECORDS SUMMARY | 2023-07-25 05:10 | External Medical Summary | Summary of Care ---
Author Name Unknown Organization [place] [address] Care Team Providers Care Polishing Wheel Setter Name Role Phone Roger Alexandra MD Primary Care Provider [phone] Encounter Details Date Type Department Care Team Description 10/14/2020 Telemedicine [facility] 132 [facility] [place] [address] Roger Alexandra MD 132 [facility] [place] [address] [phone] COPD, severe (HCC)*; Idiopathic cardiomyopathy (HCC); Moderate episode of recurrent major depressive disorder (HCC); Morbid obesity due to excess calories (HCC); shelter current use of anticoagulant therapy; Patent foramen ovale; Paroxysmal atrial fibrillation (HCC); Acquired hypothyroidism; Oxygen dependent; Obstructive sleep apnea; Cerebrovascular disease, arteriosclerotic, post-stroke; Non compliance w medication regimen; Tobacco use disorder; Narcotic addiction (HCC); SIMA (generalized anxiety disorder); Chronic bilateral low back pain without sciatica; Von Willebrand disease (HCC) Allergies Active Allergy Reactions Severity Noted [...] mg by mouth daily. 0 10/08/2020 Active Azithromycin 250 MG Oral Tablet (Zithromax Z-Jax) Take two tablets by mouth on first day, then 1 tablet daily until gone 6 Tab 0 09/04/2020 0 Discontinue d(Discharge d) guaiFENesin-Codei ne 100-10 MG/5ML Oral Syrup (ROBITUSSIN AC)Indications:CO PD, severe (HCC) Take 5 mL by mouth every 4 hours as needed for Cough. 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 My office door was closed. No one else was in the room with me. Patient acknowledged consent and understanding of privacy and security of the Telemedicine visit and gave permission to have a telemedicine presenter/family member stay in the room in order to assist with the history and to conduct the exam if needed. I informed the patient thatI have reviewed their record in [employer] and presented the opportunity for them to ask any questions reg arding the visit today. The patient agreed to participate. SUBJECTIVE: Kimberly Kendall is a 60 year old female. CC: No chief complaint on file. There are no exam notes on file for this visit. HPI: This is a medically non-compliant morbidly obese 60 year old female smoker with severe COPD, narcotic addiction, depression/anxiety, and hx of multiple strokes who I am seeing today on video visit for a hospital discharge follow up. She was brought into the hospital by her son after she was found to be somewhat confused at home. She was found to have UTI in the ER and was hospitalized. Developed s ome atypical chest pain during admission and was sent home on Imdur. She is very confused today about her medications, as is her son who is in the background talking to her. She states she "lost her nebulizer" and "wants some sort of water pill." She is unsure what medications she is supposed to betaking. She tells me that she is being compliant with her coumadin. She makes another soft attempt at me prescribing her pain medication today in regards to her chronic hip and back pain. I politely but firmly declined. 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 Z79.01 Tobacco use disorder F17.200 SIMA (generalized anxiety disorder) F41.1 COPD, severe (HCC) J44.9 Obstructive sleep apnea G47.33 Patent foramen ovale Q21.1 Cerebrovascular disease, arteriosclerotic, post-stroke I67.2, Z86.73 Von Willebrand disease (HCC) D68.0 Idiopathic cardiomyopathy (HCC) I42.8 Narcotic addiction (HCC) F11.20 Acquired hypothyroidism E03.9 Oxygen dependent Z99.81 Moderate episode of recurrent major depressive disorder (HCC) F33.1 Morbid obesity due to excess calories (HCC) E66.01 Non compliance w medication regimen Z91.14 Chronic bilateral low back pain without sciatica M54.5, G89.29 Paroxysmal atrial fibrillation (HCC) I48.0 Past Surgical History: Procedure Laterality Date COLONOSCOPY, W/BIOPSY 10/06/10 adenomatous/repeat colonoscopy in 1 yr COLONOSCOPY, W/BIOPSY 05/22/13 hyperplastic polyp EGD, FLEXIBLE, DIAGNOSTIC 02/26/2015 retained food/[facility] EGD, FLEXIBLE, W/BIOPSY 05/19/13 EGD, W/ENDOSCOPIC US 11/05/2011 UPPER GI ENDOSCOPY [...] Last attempt to quit: 01/17/2015 Years since quittin.7 Smokeless tobacco: Never Used Tobacco comment: will [...] file Gets together: Not on file Attends congregational service: Not on file Active member of [...] file Vaping/E-Cigarette Use Vaping/E-Cigarette Substances Vaping/E-Cigarette Devices Outpatient Medications Marked as Taking for the 10/14/20 encounter (Telemedicine) with Roger Alexandra MD Medication Sig Isosorbide Mononitrate ER 30 MG Oral Tablet Extended Release 24 Hour (IMDUR) Take 30 mg by mouth daily. Review of patient's allergies indicates: Allergen Reactions Aspirin Unknown von Willebrand's disease Salicylates von Willebrand's disease Extensive ROS Constitutional (f/c/wt/vision/hearing): + chronic fatigue Resp (cough/sob/bundy): SOB is at baseline CV (cp/palp/fluttering/diaphoresis/bundy/pnd): + for leg swelling GI (n/v/d/hrtburn): Negative Endo (hair/cold or heat intol/ 3 p's): Negative Neuro (shaking/weak/fatigu/parasthesi/): Negative Skin (rash/easy bruis/xerosis): Negative Psy (si/hi/halluc/): + for depression and anxiety (nocturia/hesit/drib/sexual review): Negative Lymph (swollen glands/b sx's/: Negative OBJECTIVE: There were no vitals taken for this visit. General: alert, no distress and obese ASSESSMENT/PLAN: Diagnoses and all orders for this visit: Continue medical management for all problems as below. Patient is difficult to get an accurate history from and is very confused about her medication in general. I did go over her med list with her. COPD, severe (HCC) Idiopathic cardiomyopathy (HCC) Moderate episode of recurrent major depressive disorder (HCC) Morbid obesity due to excess calories (HCC) shelter current use of anticoagulant therapy Patent foramen ovale Paroxysmal atrial fibrillation (HCC) Acquired hypothyroidism Oxygen dependent Obstructive sleep apnea Cerebrovascular disease, arteriosclerotic, post-stroke Non compliance w medication regimen Tobacco use disorder Narcotic addiction (HCC) SIMA (generalized anxiety disorder) Chronic bilateral low back pain without sciatica Von Willebrand disease (HCC) Follow Up: Return if symptoms worsen or fail to improve. 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 Patent foramen ovale Ostium secundum type atrial septal defect Paroxysmal atrial fibrillation (HCC) Atrial fibrillation Acquired hypothyroidism Unspecified hypothyroidism Oxygen dependent Dependence on supplemental oxygen Obstructive sleep apnea Obstructive sleep apnea (adult) (pediatric) Cerebrovascular disease, arteriosclerotic, post-stroke Cerebral atherosclerosis Non compliance w medication regimen Personal history of noncompliance with medical treatment, presenting hazards to health Tobacco use disorder Narcotic addiction (HCC) Unspecified drug dependence, unspecified SIMA (generalized anxiety disorder) Generalized anxiety disorder Chronic bilateral low back pain without sciatica Von Willebrand disease (HCC) Von Willebrand's disease documented in this encounter Advance Directives Documents on File Type Date Recorded Patient Professional Architect Expl anation Advanced Directive service a [...]
--- OUTSIDE RECORDS SUMMARY | 2023-07-25 05:10 | External Medical Summary ---
Author Name Unknown Address [facility] [place] [address] Phone Organization K01:[place] [address] [place] [id number] Laboratory Report Ordering Provider Test Date Status ALTAGRACIA MALIK 10/17/2020 15:40:00 Final Observation Date Value Abnormality Reference (Units ) Status BNP, Pro-hormone 10/18/2020 01:33 337 Above high vanda l 0-299 (pg/mL) Final Performing Location [facility] [address] [facility] [address]
--- OUTSIDE RECORDS SUMMARY | 2023-07-25 05:10 | External Medical Summary | Summary of Care ---
Author Name Unknown Organization [place] [address] Care Team Providers Care Screening Unit Registered Nurse Name Role Phone Roger Alexandra MD Primary Care Provider [phone] Reason for Visit * Reason Onset Date Comments Order Request 10/14/2020 Encounter Details Date Type Department Care Team Description 10/14/2020 Telephone Family Practice [facility] [address] [facility] [place] [address] Roger Alexandra MD 132 [facility] [place] [address] Order Request Allergies Active Allergy Reactions Severity Noted Date Comments Aspirin Unknown 12/12/2007 von Willebrand's disease Salicylates 03/01/2000 von Willebrand's disease documented as of this encounter (statuses as of 10/15/2020) Medications Medication Sig Dispensed Refills Start Date [...] as of this encounter (statuses as of 10/15/2020) Active Problems Problem Noted Date Non compliance [...] 04/06/2007 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 (generalized anxiety disorder) 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 . (send with notes and demo) * Telephone Encounter - Susana Velarde CMA - 10/14/2020 5:17 PM EST Called pt and LM to call office back. * Telephone Encounter - Roger Alexandra MD - 10/14/2020 4:22 PM EST Ask her where she wants me to send the nebulizer, then order the nebulizer as a DME, then queue up the nebulizer and link it to a diagnosis, then send it back to me for me to sign it. Thanks. * Telephone Encounter - Cole Duran OSA - 10/14/2020 3:52 PM EST An order was requested for this patient. Name of Requesting Provider: Dr Alexandra Order Requested: Nebulizer Diagnosis/Reason for Request: COPD Does the order need to be faxed somewhere? If so, where?: Fax Number, if applicable: Call Back Number: [phone] documented in this encounter Plan of Treatment Upcoming Encounters Date Type Specialty Care Team Description 10/17/2020 Anticoagulation Pharmacy [facility] [address] [place] [address] 11/19/2020 Telemedicine Psychiatry Alisha Lilly, DO [address] [facility] [place] [address] Health Maintenance Due [...] Primary Chronic airway obstruction, not elsewhere classified documented in this encounter Advance Directives Documents on File Type Date Recorded Patient Crew Scheduler Expl anation Advanced Directive service a yohana [...]
--- OUTSIDE RECORDS SUMMARY | 2023-07-25 05:10 | External Medical Summary ---
Author Name Unknown Address 132 [facility] [place] [address] Phone Organization K0G:[facility] 132 [facility] [place] [address] Laboratory Report Ordering Provider Test Date Status ALTAGRACIA MALIK 10/17/2020 15:40:00 Final Observation Date Value Abnormality Reference (Units ) Status WBC, Total 10/17/2020 15:49 7.25 4.00-10.80 (K/uL) Final RBC 10/17/2020 15:49 3.94 3.85-5.15 (M/uL) Final Hemoglobin 10/17/2020 15:49 12.2 12.0-15.3 (g/dL) Final HCT 10/17/2020 15:49 39.5 36.0-45.2 (%) Final MCV 10/17/2020 15:49 100.3 Above high normal 81.5-97.5 (fL) Final MCH 10/17/2020 15:49 31.0 27.0-34.0 (pg) Final MCHC 10/17/2020 15:49 30.9 Below low normal 32.0-36.0 (g/dL) Final RDW 10/17/2020 15:49 14.3 11.5-15.5 (%) Final Platelets 10/17/2020 15:49 385 140-400 (K/uL) Final MPV 10/17/2020 15:49 8.3 6.6-11.1 (fL) Final Segs 10/17/2020 15:49 58.5 40-75 (%) Final Lymphs % 10/17/2020 15:49 30.6 18-42 (%) Final Monos 10/17/2020 15:49 8.7 1-11 (%) Final Eosinophils 10/17/2020 15:49 1.9 0-6 (%) Final Basos 10/17/2020 15:49 0.3 0-2 (%) Final Neutrophils [#/volume] in Blood 10/17/2020 15:49 4.24 1.8-7.7 (K/uL) Final Lymphs, absolute 10/17/2020 15:49 2.22 1.0-4.8 (K/uL) Final Monos, Abs 10/17/2020 15:49 0.63 0.0-1.1 (K/uL) Final Eos, Abs 10/17/2020 15:49 0.14 0.0-0.7 (K/uL) Final Basos, Abs 10/17/2020 15:49 0.02 0.0-0.2 (K/uL) Final Performing Location [address] [place] [address]
--- OUTSIDE RECORDS SUMMARY | 2023-07-25 05:10 | External Medical Summary | Summary of Care ---
Author Name Unknown Organization [place] [address] Care Team Providers Care Compressor Operator Name Role Phone Roger Alexandra MD Primary Care Provider [phone] Reason for Referral * Precert (Routine) Status Reason Specialty Diagnoses / Procedures Referred By Contact Referred To Contact Pending Review Precert Cardiac Studies Diagnoses Elevated brain natriuretic peptide (BNP) level Bilateral leg edema Procedures ECHO, COMPLETE (2D), TRANS-THORACIC David Henao MD [address] [place] [address] Reason for Visit * Reason Onset Date Comments Abnormal Lab Results 10/18/2020 Encounter Details Date Type Department Care Team Description 10/18/2020 Telephone Family Practice [facility] [address] [place] [address] David Henao MD 21 [facility] [place] [address] [phone] Abnormal Lab Results Allergies Active Allergy Reactions [...] Telephone Encounter - Saray Bright OSA - 10/18/2020 12:06 PM EST Called pt and scheduled * Telephone Encounter - Cordelia Burns RN [...] Description 10/22/2020 Cardiac Studies Cardiac Studies Gw, Injection Molder [facility] [place] [address] [phone] 11/19/2020 Telemedicine Psychiatry Alisha Lilly, DO [address] [facility] [address] Scheduled Orders Name Type Priority Associated [...] Documents on File Type Date Recorded Patient Fur Stretcher Expl anation Advanced Directive service a yohana [...]
--- OUTSIDE RECORDS SUMMARY | 2023-07-25 05:10 | External Medical Summary | Summary of Care ---
Author Name Unknown Organization [place] [address] Care Team Providers Care Parking Lot Chauffeur Name Role Phone Roger Alexandra MD Primary Care Provider [phone] [phone] Reason for Visit * Reason Onset Date Comments FYI 10/17/2020 redness, swellin g of lower leg. Encounter Details Date Type Department Care Team Description 10/17/2020 Telephone Family Practice [facility] 132 [facility] [place] [address] Roger Alexandra MD 132 [place] [address] [phone] FYI (redness, swelling of lower leg. ) Allergies Active Allergy Reactions Severity Noted [...] Encounter - Kim De Guzman LPN - 10/18/2020 4:14 PM EST Called [facility], s/w intake nurse. Aware of advice. Pt should have something for pain at home. Rxed by another office on 10/08 If pain is too bad, than OV here this weekend or ER. Nurse aware and will call pt. * Telephone Encounter - Brittney Wilde DO - 10/18/2020 4:04 PM EST Please call, recommend cool compresses, continue lasix Elevate the leg, can wrap if needed F/u in office if pain is severe Per pdmp pt had rx for hydrocodone from another practice on 10/08/20 * Telephone Encounter - Kim De Guzman LPN - 10/18/2020 3:52 PM EST Narcisa: disregard. * Telephone Encounter - Karl Thayer OSA - 10/18/2020 3:13 PM EST Jelly from [facility] calling. She called pt today to make sure that she attended her appt yesterday. Jelly states that pt was very tearful on the phone. Stated that she can't take the pain and thatshe wishes that someone would just give her something for the pain. Jelly reviewed med list with pt. Pt took 6-7 tylenol today.Rates pain 10/24. Advised with the pain of 10/24 that she go to the ED, pt declined. Wondering if a nurse should go out and look at her over the weekend or if there's something else they can be doing for pt. Please advise. Thanks. * Telephone Encounter - Haley Dejesus LPN - 10/17/2020 1:40 PM EST Pt is scheduled with Dr. Henao today at 3pm. * Telephone Encounter - Jasmin Kapoor OSA - 10/17/2020 1:01 PM EST Pt has had a 7 pound weight gain, she is having 10/10 pain in left leg. Pt has redness on lower left posterior leg, warm to to touch.Limited ROM of LLE, new onset. Pt scheduled for today. Please callpt if there is a need to see pt sooner. documented in this encounter Plan of Treatment Upcoming Encounters Date Type Specialty Care Team Description 10/22/2020 Cardiac Studies Cardiac Studies , [facility] [address] [phone] 11/19/2020 Telemedicine Psychiatry Alisha Lilly, DO [address] [place] [address] Health Maintenance Due Date Last [...] Documents on File Type Date Recorded Patient Dopster Expl anation Advanced Directive service a yohana [...]
--- OUTSIDE RECORDS SUMMARY | 2023-07-25 05:10 | External Medical Summary | Summary of Care ---
Author Name Unknown Organization [place] [address] Care Team Providers Care Building Maintenance Repairer Name Role Phone Roger Alexandra MD Primary Care Provider [phone] [phone] Reason for Visit * Reason Onset Date Comments Order Request 10/17/2020 PT Encounter Details Date Type Department Care Team Description 10/17/2020 Telephone Family Practice [facility] [address] [place] [address] Roger Alexandra MD 132 [facility] [place] [address] [phone] Order Request (PT) Allergies Active Allergy Reactions Severity Noted Date [...] 04/06/2007 SIMA (generalized anxiety disorder) 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 * Telephone Encounter - Brittney Wilde DO - 10/18/2020 9:45 AM EST Agree Please call to give verbal order * Telephone Encounter - Hao Chadwick LPN - 10/17/2020 10:55 AM EST Please advise if agreeable to below request. * Telephone Encounter - Sharmaine Ramirez OSA - 10/17/2020 10:36 AM EST Torey from [facility] PT is requesting verbal order for PT 2 times a week for 3 weeks 1 time a week for 1 week. Please call Torey at [phone] documented in this encounter Plan of Treatment Upcoming Encounters Date Type Specialty Care Team Description 11/19/2020 Telemedicine Psychiatry Alisha Lilly, DO [address] [place] [address] Health Maintenance Due Date Last [...] Documents on File Type Date Recorded Patient Opthalmic Tech Expl anation Advanced Directive service a yohana [...]
--- OUTSIDE RECORDS SUMMARY | 2023-07-25 05:10 | External Medical Summary ---
Author Name Unknown Address [facility] [address] [place] [id number] Phone Organization [address] [address] [address] [place] [id number] Laboratory Report Ordering Provider Test Date Status STEFANI MARINELLI 10/17/2020 11:10:00 Final Observation Date Value Abnormality Reference (Units ) Status PT 10/17/2020 15:10 35.4 Above high normal 11.5- 14.6 (seconds) Final INR 10/17/2020 15:10 3.47 Above high normal 0.84- 1.14 Final Performing Location [address] [address]
--- OUTSIDE RECORDS SUMMARY | 2023-07-25 05:10 | External Medical Summary | Summary of Care ---
Author Name Unknown Organization [place] [address] Care Team Providers Care Negative Cleaner Name Role Phone Roger Alexandra MD Primary Care Provider [phone] Reason for Referral * Ancillary Services (Within 3 days (urgent)) Status Reason Specialty Diagnoses / Procedures Referred By Contact Referred To Contact Pending Review Ancillary Services Required Mortgage Loan Processing Clerk Diagnoses Cerebrovascular disease, arteriosclerotic , post-stroke Roger Alexandra MD [address] [place] [address] Reason for Visit * Reason Comments Dosage Adjustment Via Phone (anticoag Cl inic) Encounter Details Date Type Department Care Team Description 10/11/2020 Anticoagulation Pharmacy, [facility] 132 [facility] [place] [address] [facility] 132 [facility] [place] [address] Cerebrovascular disease, arteriosclerotic, post-stroke* Allergies Active Allergy [...] mouth daily. 45 Tab 2 07/24/2020 Active LORazepam 0.5 MG Oral Tablet (Ativan) Take 1 Tab by mouth 2 times a day as needed for Anxiety. 60 Tab 0 08/15/2020 Active Albuterol Sulfate (2.5 MG/3ML) 0.083% Inhalation [...] until gone 6 Tab 0 09/04/2020 Active guaiFENesin-Codeine 100-10 MG/5ML Oral Syrup (ROBITUSSIN AC)Indications:COPD , severe (HCC) Take 5 mL by mouth every 4 hours as needed for Cough. 120 mL 0 09/04/2020 Active Mirtazapine 30 MG Oral Tablet (REMERON) Take 1 Tab by mouth at bedtime. 30 Tab 1 09/16/2020 Active documented as of this encounter (statuses [...] as of this encounter Progress Notes * Héctor Tubbs [facility] - 10/11/2020 9:06 AM EST [facility] - [facility] was admitted to [facility] 09/27-10/09 for metabolic encephalopathy Patient Phone Numbers Per report patient has been taking 5mg daily - PT/INR upon discharge was 2.34 - limited detail of complete warfarin doses that were given to patient throughout her stay at [facility] - patient has PCPfollow up scheduled 10/14 Spoke with patient who denies any issues bruising or bleeding, patient was unsure of her warfarin strength that she currently has, patient's granddaughter handles her medications, was unable to discuss medication at this time. Reviewed with patient that her latest prescription was for 10mg tablets,patient is to take 5mg of warfarin daily until next PT/ INR results (expected 10/14) patient voicedunderstanding Follow up in 3 days Héctor Tubbs, Pharm D Clinical Pharmacist 10/11/2020,4:30 PM documented in this encounter Plan of Treatment Upcoming Encounters Date Type Specialty Care Team Description 10/14/2020 Telemedicine Family Medicine Roger Alexandra MD [address] [place] [address] [phone] 11/19/2020 Telemedicine Psychiatry Alisha Lilly, DO [address] [facility] [place] [address] [phone] Scheduled Referrals Name Type Priority Associated Diagnoses Orde r Schedule HOME PHLEBOTOMY REFERRAL OP Referral Within 3 days (urgent) Cerebrovascular disease, arteriosclerotic, post-stroke Ordered: 10/11/2020 Health Maintenance Due Date Last Done Comments [...] Documents on File Type Date Recorded Patient Nursing Aide Expl anation Advanced Directive service a [...]
--- OUTSIDE RECORDS SUMMARY | 2023-07-25 05:10 | External Medical Summary | Summary of Care ---
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
--- OUTSIDE RECORDS SUMMARY | 2023-07-25 05:11 | External Medical Summary | Summary of Care ---
Author Name Unknown Organization [place] [address] Care Team Providers Care Sdv Pilot/Navigator/Dds Operator Name Role Phone Roger Alexandra MD Primary Care Provider [phone] [phone] Reason for Visit * Reason Comments Appointment Encounter Details Date Type Department Care Team Description 10/04/2020 Anticoagulation Pharmacy, [facility] 132 [place] [address] [facility] 132 [place] [address] Cerebrovascular disease, arteriosclerotic, post-stroke* Allergies Active Allergy Reactions Severity Noted Date Comments Aspirin Unknown 12/12/2007 von Willebrand's disease Salicylates 03/01/2000 von Willebrand's disease documented as of this encounter (statuses as of 10/04/2020) Medications Medication Sig Dispensed Refills Start Date [...] as of this encounter (statuses as of 10/04/2020) Active Problems Problem Noted Date Hemiplegia 06/07/2020 [...] as of this encounter (statuses as of 10/04/2020) Resolved Problems Problem Noted Date Resolved Date [...] as of this encounter (statuses as of 10/04/2020) Immunizations Name Administration Dates Next Due H1N1 [...] Progress Notes * Joanna Linn OSA - 10/04/2020 10:32 AM EST Patient Phone Numbers Patient currently admitted at [facility] Follow up next week for d/c documented in this encounter Plan of Treatment Upcoming Encounters Date Type Specialty Care Team Description 10/09/2020 Anticoagulation Pharmacy [facility] 132 [facility] [place] [address] 11/19/2020 Telemedicine Psychiatry Alisha Lilly, DO 100 [...] Documents on File Type Date Recorded Patient Preparation Supervisor Canning Expl anation Advanced Directive service a yohana [...]
--- OUTSIDE RECORDS SUMMARY | 2023-07-25 05:11 | External Medical Summary | Summary of Care ---
Author Name Unknown Organization [place] [address] Care Team Providers Care Subpoena Server Name Role Phone Roger Alexandra MD Primary Care Provider [phone] [phone] Reason for Visit * Reason Comments Appointment Encounter Details Date Type Department Care Team Description 10/04/2020 Anticoagulation Pharmacy, [facility] 132 [place] [address] [facility] 132 [place] [address] Cerebrovascular disease, arteriosclerotic, post-stroke* Allergies Active Allergy [...] Patient Phone Numbers Patient currently admitted at [facility] Follow up next week for d/c documented in this encounter Plan of Treatment Upcoming Encounters Date Type Specialty Care Team Description 10/09/2020 Anticoagulation Pharmacy [facility] 132 [facility] [place] [address] 11/19/2020 Telemedicine Psychiatry Alisha Lilly, DO [address] [facility] [place] [address] Health Maintenance Due Date [...] on File Type Date Recorded Patient Automatic Lathe Operator Expl anation Advanced Directive service a [...]
--- OUTSIDE RECORDS SUMMARY | 2023-07-25 05:11 | External Medical Summary | Summary of Care ---
Author Name Unknown Organization [place] [address] Care Team Providers Care Preparation Operator Name Role Phone Roger Alexandra MD Primary Care Provider [phone] [phone] Reason for Visit * Reason Onset Date Comments Medication Refill 08/19/2020 Encounter Details Date Type Department Care Team Description 08/19/2020 Refill Psychiatry, [facility] [address] [place] [address] Alisha Lilly, DO [address] [facility] [place] [address] [phone] Allergies Active Allergy Reactions Severity Noted Date Comments Aspirin Unknown 12/12/2007 von Willebrand's disease Salicylates 03/01/2000 von Willebrand's disease documented as of this encounter (statuses as of 09/17/2020) Medications Medication Sig Dispensed Refills Start Date [...] for Anxiety. 60 Tab 0 08/15/2020 Active warfarin sodium (COUMADIN) 10 MG Tablet Take 2 tablets on Wednesday and Wednesday, and 1.5 tablets all other days or as directed by anticoagulation pharmacist. 60 Tab 2 05/13/2020 0 Discontinue d(Refill) Mirtazapine (REMERON) 30 MG Tablet Take 1 Tab by mouth at bedtime. 30 Tab 2 05/14/2020 0 Discontinue d(Refill) Mirtazapine 30 MG Oral Tablet (REMERON) Take 1 Tab by mouth at bedtime. 30 Tab 0 08/19/2020 0 Discontinue d(Refill) documented as of this encounter (statuses as of 09/17/2020) Active Problems Problem Noted Date Hemiplegia 06/07/2020 [...] as of this encounter (statuses as of 09/17/2020) Resolved Problems Problem Noted Date Resolved Date [...] as of this encounter (statuses as of 09/17/2020) Immunizations Name Administration Dates Next Due H1N1 [...] Miscellaneous Notes * Telephone Encounter - Yara Pérez MD - 08/19/2020 4:11 PM EDT Signed Prescriptions: Disp Refills Mirtazapine 30 MG Oral Tablet (REMERON) 30 Tab 0 Sig: Take 1 Tab by mouth at bedtime. Authorizing Provider: YARA PÉREZ * Telephone Encounter - Milvia Benz TECH - 08/19/2020 1:59 PM EDT [facility] requesting refill on Mirtazapine 30 mg tablet. Pt Last Office/Telemedicine Visit: 07/24/2020 with a scheduled return on 11/19/2020. Pt had No Cx & 0 NO SHOW apt's. Medication was last filled on 05/14/20 with [address] Lilly who is currently out of the office on maternity leave. documented in this encounter Plan of Treatment Upcoming Encounters Date Type Specialty Care Team Description 09/17/2020 Office Visit Family Medicine Roger Alexandra MD [address] [place] [address] [phone] 09/17/2020 Office Visit Pharmacy [facility] [address] [place] [address] 11/19/2020 Telemedicine Psychiatry Alisha Lilly, DO [address] [place] [facility] [address] Health Maintenance Due Date Last Done [...] Documents on File Type Date Recorded Patient Selvage Machine Operator Expl 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
--- OUTSIDE RECORDS SUMMARY | 2023-07-25 05:11 | External Medical Summary | Summary of Care ---
Author Name Unknown Organization [place] [address] Care Team Providers Care Manager Cardiology Name Role Phone Roger Alexandra MD Primary Care Provider [phone] Reason for Visit * Reason Comments Left Message Encounter Details Date Type Department Care Team Description 09/27/2020 Anticoagulation Pharmacy, [facility] 132 [place] [address] [facility] 132 [place] [address] Cerebrovascular disease, arteriosclerotic, post-stroke* Allergies Active Allergy Reactions Severity Noted Date Comments Aspirin Unknown 12/12/2007 von Willebrand's disease Salicylates 03/01/2000 von Willebrand's disease documented as of this encounter (statuses as of 09/27/2020) Medications Medication Sig Dispensed Refills Start Date [...] as of this encounter (statuses as of 09/27/2020) Active Problems Problem Noted Date Hemiplegia 06/07/2020 [...] as of this encounter (statuses as of 09/27/2020) Resolved Problems Problem Noted Date Resolved Date [...] as of this encounter (statuses as of 09/27/2020) Immunizations Name Administration Dates Next Due H1N1 [...] Progress Notes * Christine Camejo OSA - 09/27/2020 9:26 AM EST Patient Phone Numbers Left message offering to reschedule OFS Follow up in 1 week if no response sooner documented in this encounter Plan of Treatment Upcoming Encounters Date Type Specialty Care Team Description 10/04/2020 Anticoagulation Pharmacy [facility] 132 [facility] [place] [address] 11/19/2020 Telemedicine Psychiatry Alisha Lilly, DO [address] [facility] [place] [address] Health Maintenance Due [...] Documents on File Type Date Recorded Patient Enterostomal Nurse Expl anation Advanced Directive service a [...]
--- OUTSIDE RECORDS SUMMARY | 2023-07-25 05:11 | External Medical Summary | Summary of Care ---
Author Name Unknown Organization [place] [address] Care Team Providers Care Horse Race Starter Name Role Phone Roger Alexandra MD Primary Care Provider [phone] Encounter Details Date Type Department Care Team Description 09/21/2020 Scan Encounter Unspecified Department <No scans attached> Allergies Active Allergy Reactions Severity Noted Date Comments Aspirin Unknown 12/12/2007 von Willebrand's disease Salicylates 03/01/2000 von Willebrand's disease documented as of this encounter (statuses as of 09/23/2020) Medications Medication Sig Dispensed Refills Start Date [...] as of this encounter (statuses as of 09/23/2020) Active Problems Problem Noted Date Hemiplegia 06/07/2020 [...] as of this encounter (statuses as of 09/23/2020) Resolved Problems Problem Noted Date Resolved Date [...] as of this encounter (statuses as of 09/23/2020) Immunizations Name Administration Dates Next Due H1N1 [...] Encounters Date Type Specialty Care Team Description 09/27/2020 Anticoagulation Pharmacy [facility] 132 [facility] [place] [address] 11/19/2020 Telemedicine Psychiatry Alisha Lilly, DO [address] [place] [address] [phone] Health Maintenance Due Date Last Done Comments [...] Documents on File Type Date Recorded Patient Sail Lay Out Worker Expl anation Advanced Directive service a [...]
--- OUTSIDE RECORDS SUMMARY | 2023-07-25 05:11 | External Medical Summary | Summary of Care ---
Author Name Unknown Organization [place] [address] Care Team Providers Care Supervisor Polishing Name Role Phone Roger Alexandra MD Primary Care Provider [phone] Encounter Details Date Type Department Care Team Description 09/22/2020 Scan Encounter Unspecified Department <No scans attached> [...] Clinic [facility] 132 [facility] [place] [address] 11/19/2020 Telemedicine Psychiatry Alisha Lilly, DO [address] [place] [address] [phone] Health Maintenance Due Date Last Done Comments [...] Documents on File Type Date Recorded Patient Operator And Truck Driver Expl 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
--- OUTSIDE RECORDS SUMMARY | 2023-07-25 05:11 | External Medical Summary | Summary of Care ---
Author Name Unknown Organization [place] [address] Care Team Providers Care Manager College Name Role Phone Roger Alexandra MD Primary Care Provider +1 [phone] Reason for Visit * Reason Comments Status Check Encounter Details Date Type Department Care Team Description 10/09/2020 Anticoagulation Pharmacy, [facility] 132 [place] [address] [facility] [address] [place] [address] Cerebrovascular disease, arteriosclerotic, post-stroke* Allergies Active Allergy Reactions Severity Noted Date Comments Aspirin Unknown 12/12/2007 von Willebrand's disease Salicylates 03/01/2000 von Willebrand's disease documented as of this encounter (statuses as of 10/09/2020) Medications Medication Sig Dispensed Refills Start Date [...] as of this encounter (statuses as of 10/09/2020) Active Problems Problem Noted Date Hemiplegia 06/07/2020 [...] severe 04/06/2007 SIMA (generalized anxiety disorder) 02/08 [facility] current use of anticoagulant t herapy 06/01/2005 Overview: ICD-10 update of inactive term Tobacco use disorder documented as of this encounter (statuses as of 10/09/2020) Resolved Problems Problem Noted Date Resolved Date [...] as of this encounter (statuses as of 10/09/2020) Immunizations Name Administration Dates Next Due H1N1 [...] this encounter Progress Notes * Abena Moralez [facility] - 10/09/2020 9:38 AM EST Patient remains admitted to [facility] at this time. They state she will most likely be discharged today or tomorrow. Follow up in 2 days for status check. Abena Moralez, Pharm D Clinical Pharmacist 10/09/2020, 9:40 AM documented in this encounter Plan of Treatment Upcoming Encounters Date Type Specialty Care Team Description 10/11/2020 Anticoagulation Pharmacy [facility] 132 [facility] [place] [address] 11/19/2020 Telemedicine Psychiatry Alisha Lilly, DO [address] [facility] [place] [address] Health Maintenance [...] Documents on File Type Date Recorded Patient Innovations Paraprofessional Expl anation Advanced Directive service a yohana [...]
--- OUTSIDE RECORDS SUMMARY | 2023-07-25 05:11 | External Medical Summary | Summary of Care ---
Author Name Unknown Organization [place] [address] Care Team Providers Care Roving Carrier Name Role Phone Roger Alexandra MD Primary Care Provider [phone] Encounter Details Date Type Department Care Team Description 09/12/2020 Scan Encounter Unspecified Department <No scans attached> Allergies Active Allergy Reactions Severity Noted Date Comments Aspirin Unknown 12/12/2007 von Willebrand's disease Salicylates 03/01/2000 von Willebrand's disease documented as of this encounter (statuses as of 09/16/2020) Medications Medication Sig Dispensed Refills Start Date [...] for Anxiety. 60 Tab 0 08/15/2020 Active Mirtazapine 30 MG Oral Tablet (REMERON) Take 1 Tab by mouth at bedtime. 30 Tab 0 08/19/2020 Active Albuterol Sulfate (2.5 MG/3ML) 0.083% Inhalation [...] for Cough. 120 mL 0 09/04/2020 Active documented as of this encounter (statuses as of 09/16/2020) Active Problems Problem Noted Date Hemiplegia 06/07/2020 [...] as of this encounter (statuses as of 09/16/2020) Resolved Problems Problem Noted Date Resolved Date [...] as of this encounter (statuses as of 09/16/2020) Immunizations Name Administration Dates Next Due H1N1 [...] Medicine Roger Alexandra MD [address] [place] [address] [phone] 09/17/2020 Office Visit Pharmacy [facility] 132 [facility] [place] [address] 11/19/2020 Telemedicine Psychiatry Alisha Lilly, DO [address] [facility] [place] [address] Health Maintenance Due [...] Documents on File Type Date Recorded Patient Professor Of Latin American Studies Expl anation Advanced Directive service a yohana [...]
--- OUTSIDE RECORDS SUMMARY | 2023-07-25 05:11 | External Medical Summary | Summary of Care ---
Author Name Unknown Organization [place] [address] Care Team Providers Care Manager Of Loss Prevention Operations Name Role Phone Roger Alexandra MD Primary Care Provider [phone] [phone] Encounter Details Date Type Department Care Team Description 09/17/2020 Scan Encounter Unspecified Department <No scans attached> Allergies Active Allergy Reactions Severity Noted Date Comments Aspirin Unknown 12/12/2007 von Willebrand's disease Salicylates 03/01/2000 von Willebrand's disease documented as of this encounter (statuses as of 09/30/2020) Medications Medication Sig Dispensed Refills Start Date [...] as of this encounter (statuses as of 09/30/2020) Active Problems Problem Noted Date Hemiplegia 06/07/2020 [...] severe 04/06/2007 SIMA (generalized anxiety disorder) 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 06/01/2005 Overview: ICD-10 update of inactive term Tobacco use disorder documented as of this encounter (statuses as of 09/30/2020) Resolved Problems Problem Noted Date Resolved Date [...] as of this encounter (statuses as of 09/30/2020) Immunizations Name Administration Dates Next Due H1N1 [...] Specialty Care Team Description 10/04/2020 Anticoagulation Pharmacy [facility] 132 [facility] [place] [address] 11/19/2020 Telemedicine Psychiatry Alisha Lilly, DO [address] [place] [address] [phone] Health Maintenance Due Date Last Done Comments [...] Documents on File Type Date Recorded Patient Specialist Icu Expl anation Advanced Directive service a yohana [...]
--- OUTSIDE RECORDS SUMMARY | 2023-07-25 05:11 | External Medical Summary | Summary of Care ---
Author Name Unknown Organization [place] [address] Care Team Providers Care Recording Studio Internship Name Role Phone Roger Alexandra MD Primary Care Provider [phone] [phone] Encounter Details Date Type Department Care Team Description 09/13/2020 Scan Encounter Unspecified Department <No scans attached> [...] Medicine Roger Alexandra MD [address] [place] [address] [phone] 09/17/2020 Office Visit Pharmacy [facility] [address] [place] [address] 11/19/2020 Telemedicine Psychiatry Alisha Lilly, DO [address] [place] [address] [phone] Health Maintenance Due Date Last Done Comments [...] Documents on File Type Date Recorded Patient Chart Snatcher Expl anation Advanced Directive service a yohana [...]
--- OUTSIDE RECORDS SUMMARY | 2023-07-25 05:11 | External Medical Summary ---
Author Name Unknown Address [facility] [address] [facility] [place] [facility] Phone Organization K01:[place] [address] [address] [facility] [place] [address] Laboratory Report Ordering Provider Test Date Status NICANOR SMILEY 09/05/2020 09:03:00 Final Observation Date Value Abnormality Reference (Units ) Status PT 09/05/2020 13:50 17.3 Above high normal 11.5- 14.6 (seconds) Final INR 09/05/2020 13:50 1.40 Above high normal 0.84- 1.14 Final Performing Location [place] [address] [address] [facility] [address]
--- OUTSIDE RECORDS SUMMARY | 2023-07-25 05:11 | External Medical Summary | Summary of Care ---
Author Name Unknown Organization [place] [address] Care Team Providers Care Screen Making Supervisor Name Role Phone Roger Alexandra MD Primary Care Provider [phone] Reason for Visit * Reason Onset Date Comments Med Request 09/03/2020 Encounter Details Date Type Department Care Team Description 09/03/2020 Telephone Family Practice [facility] 132 [facility] [place] [address] Roger Alexandra MD 132 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 Transferred to scheduling. * Telephone Encounter - Roger Alexandra MD - 09/03/2020 4:54 PM EDT Codeine cough syrup is not in a COPD rescue kit. Request denied. If she needs an appointment, she can make one with any provide.r * Telephone Encounter - Ben, DANIEL Perales - 09/03/2020 10:31 AM EDT Pt calling regarding a medication request for Antibiotic, prednisone and guaiFENesin-codeine (ROBITUSSIN AC) 100-10 MG/5ML syrup Pt states he/she needs the Rx for COPD and requesting rescue kit, no indication on which script/dosage is listed as Pt's Rescue Kit. Pt requesting a refill on guaiFENesin-codeine (ROBITUSSIN AC) 100-10 MG/5ML syrup due to having a cough. Please advise Pt if Rx request is appropriate or if Pt would need to schedule an OV in order to be evaluated for this Rx. If provider is agreeable, please send new Rx script to Pt's preferred pharmacy at [address] . Pt can be reached at Patient Phone Numbers Thank You, Dorothy Contreras Bar Assistant Refill Call Center 09/03/2020, 10:33 AM documented in this encounter Plan of Treatment Upcoming Encounters Date Type Specialty Care Team Description 09/20/[address] [place] [address] 11/19/2020 [facility]medicine [facility]iatry [facility] [address] [facility] [address] Health Maintenance Due Date Last [...] Documents on File Type Date Recorded Patient Support Dba Expl anation Advanced Directive service a yohana [...]
--- OUTSIDE RECORDS SUMMARY | 2023-07-25 05:11 | External Medical Summary | Summary of Care ---
Author Name Unknown Organization [place] [address] Care Team Providers Care Dredge Deckhand Name Role Phone Roger Alexandra MD Primary Care Provider [phone] Reason for Visit * Reason Onset Date Comments Medical Records Request 09/23/2020 Encounter Details Date Type Department Care Team Description 09/23/[address] [facility] [address] Roger Alexandra MD 132 [place] [address] Medical Records Request Allergies Active Allergy Reactions Severity Noted [...] Miscellaneous Notes * Telephone Encounter - Susanna Storey OSA - 09/23/2020 9:53 AM EST [facility] is requesting medical record for continuation of care. Forwarded to [facility] documented in this encounter Plan of Treatment Upcoming Encounters Date Type Specialty Care Team Description 09/27/2020 Anticoagulation Pharmacy [facility] 132 [facility] [place] [address] 11/19/2020 Telemedicine Psychiatry Alisha Lilly, DO [address] [facility] [place] [address] Health Maintenance Due Date [...] Documents on File Type Date Recorded Patient Squirrel Man Expl anation Advanced Directive service a [...]
--- OUTSIDE RECORDS SUMMARY | 2023-07-25 05:11 | External Medical Summary | Summary of Care ---
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
--- OUTSIDE RECORDS SUMMARY | 2023-07-25 05:11 | External Medical Summary | Summary of Care ---
Author Name Unknown Organization [place] [address] Care Team Providers Care Director Video Name Role Phone Roger Alexandra MD Primary Care Provider [phone] Encounter Details Date Type Department Care Team [...] Medicine Roger Alexandra MD [address] [place] [address] [phone] 09/17/2020 Office Visit Pharmacy [facility] 132 [facility] [place] [address] 11/19/2020 Telemedicine Psychiatry Alisha Lilly, DO [address] [facility] [place] [address] Health Maintenance Due [...] Documents on File Type Date Recorded Patient Patient Safety Attendant Expl anation Advanced Directive service a [...]
--- OUTSIDE RECORDS SUMMARY | 2023-07-25 05:11 | External Medical Summary | Summary of Care ---
Author Name Unknown Organization [place] [address] Care Team Providers Care Appeals Specialist Name Role Phone Roger Alexandra MD Primary Care Provider [phone] Encounter Details Date Type Department Care Team Description 09/04/2020 Telemedicine [facility] [address] [facility] [place] [address] Roger Alexandra MD 132 [facility] [place] [address] [phone] COPD, severe (HCC)*; Tobacco use disorder; Oxygen dependent Allergies Active Allergy Reactions Severity Noted Date Comments Aspirin Unknown 12/12/2007 von Willebrand's disease Salicylates 03/01/2000 von Willebrand's disease documented as of this encounter (statuses as of 09/04/2020) Medications Medication Sig Dispensed Refills Start Date [...] as of this encounter (statuses as of 09/04/2020) Active Problems Problem Noted Date Hemiplegia 06/07/2020 [...] as of this encounter (statuses as of 09/04/2020) Resolved Problems Problem Noted Date Resolved Date [...] as of this encounter (statuses as of 09/04/2020) Immunizations Name Administration Dates Next Due H1N1 [...] Progress Notes * Roger Alexandra MD - 09/04/2020 6:00 PM EDT After connecting through televideo, patient was verified with two unique identifiers. Patient (or authorized legal energy conservation representative) was then informed that this was [...] patient thatI have reviewed their record in [employer] and presented the opportunity for them to ask any questions reg arding the visit today. The patient agreed to participate. SUBJECTIVE: Kimberly Kendall is a 60 year old female. No chief complaint on file. HPI: This is a very unhealthy 60 year old female with severe oxygen dependent COPD who is calling in forincrease in cough and congestion. She uses continuous oxygen. She tells me that her daughter is getting on Wednesday and she wants to feel better for this. She says she "only smoked 4 cigarettes today." She has a director multimedia caregiver present during the conversation today. Her overall health status is guarded at best. Patient Active Problem List Diagnosis Code halfway current use of anticoagulant therapy Z79.01 Tobacco use disorder F17.200 SIMA (generalized anxiety disorder) F41.1 COPD, severe (HCC) J44.9 Obstructive sleep apnea G47.33 Patent foramen ovale Q21.1 Cerebrovascular disease, arteriosclerotic, post-stroke I67.2, Z86.73 Disc disorder of lumbar region M51.9 Von Willebrand disease (HCC) D68.0 Idiopathic cardiomyopathy (HCC) I42.8 Narcotic addiction (HCC) F11.20 Acquired hypothyroidism E03.9 Oxygen dependent Z99.81 Moderate episode of recurrent major depressive disorder (HCC) F33.1 Morbid obesity due to excess calories (HCC) E66.01 Hemiplegia (HCC) G81.90 Current Outpatient Medications Medication Sig Dispense Refill Azithromycin 250 MG Oral Tablet (Zithromax Z-Jax) Take two tablets by mouth on first day, then 1 tablet daily until gone 6 Tab 0 guaiFENesin-Codeine 100-10 MG/5ML Oral Syrup (ROBITUSSIN AC) Take 5 mL by mouth every 4 hours as needed for Cough. 120 mL 0 Warfarin Sodium 10 MG Oral Tablet Take 2 tablets on Wednesday and Wednesday, and 1.5 tablets all other days or as directed by anticoagulation pharmacist. 60 Tab 2 Albuterol Sulfate (2.5 MG/3ML) 0.083% Inhalation Nebulization Solution (PROVENTIL) Inhale 1 Vial via nebulizer every 4 hours as needed for Wheezing. 20 mL 1 Mirtazapine 30 MG Oral Tablet (REMERON) Take 1 Tab by mouth at bedtime. 30 Tab 0 LORazepam 0.5 MG Oral Tablet (Ativan) Take 1 Tab by mouth 2 times a day as needed for Anxiety. 60 Tab 0 sertraline (ZOLOFT) 100 MG Tablet Take 1.5 [...] no vitals taken for this visit. Gen: nad; speaking in full sentences ASSESSMENT AND PLAN: (J44.9) COPD, severe (HCC) (primary encounter diagnosis) Plan: guaiFENesin-Codeine 100-10 MG/5ML Oral Syrup (ROBITUSSIN AC) -z-pack -strongly advised complete smoking cessation but she is a dedicated smoker -ER precautions given to patient and statistician theoretical (F17.200) Tobacco use disorder Plan: see above (Z99.81) Oxygen dependent Plan: see above Follow up as needed. No other complaints were offered at this time. Roger Alexandra MD documented in this encounter Plan of Treatment Upcoming Encounters Date Type Specialty Care Team Description 09/05/2020 Laboratory [facility] [place] [address] [place] [address] 09/05/2020 Anticoagulation Pharmacy [facility] [address] [place] [address] 09/17/2020 Office Visit Family Medicine Roger Alexandra MD [address] [place] [address] [phone] 11/19/2020 Telemedicine Psychiatry Alisha Lilly DO [address] [place] [address] Health Maintenance Due Date Last [...] Primary Chronic airway obstruction, not elsewhere classified Tobacco use disorder Oxygen dependent Dependence on supplemental oxygen halfway (current) use of anticoagulants- Primary Long-term (current) use of anticoagulants documented in this encounter Advance Directives Documents on File Type Date Recorded Patient Loading Checker Expl anation Advanced Directive service a [...]
--- OUTSIDE RECORDS SUMMARY | 2023-07-25 05:11 | External Medical Summary | Summary of Care ---
Author Name Unknown Organization [place] [address] Care Team Providers Care Swimming Instructor Name Role Phone Roger Alexandra MD Primary Care Provider [phone] Encounter Details Date Type Department Care Team [...] Description 09/27/2020 Anticoagulation Pharmacy [facility] 132 [facility] [place] [address] 11/19/2020 Telemedicine Psychiatry Alisha Lilly, DO [address] [place] [address] [phone] Health Maintenance Due Date Last Done Comments [...] Documents on File Type Date Recorded Patient Transmission Worker Expl anation Advanced Directive service a [...]
--- OUTSIDE RECORDS SUMMARY | 2023-07-25 05:11 | External Medical Summary | Summary of Care ---
Author Name Unknown Organization [place] [address] Care Team Providers Care Guest Service Supervisor Name Role Phone Roger Alexandra MD Primary Care Provider [phone] Reason for Visit * Reason Onset Date Comments Medication Refill 09/15/2020 Encounter Details Date Type Department Care Team Description 09/15/2020 Refill [facility] [place] [address] [place] [address] Alisha Lilly, [address] [place] [address] [phone] Allergies Active Allergy Reactions Severity Noted Date [...] at bedtime. 30 Tab 1 09/16/2020 Active Mirtazapine 30 MG Oral Tablet (REMERON) [...] encounter Miscellaneous Notes * Telephone Encounter - Prabhu Ibarra MD - 09/16/2020 9:50 AM EST Signed Prescriptions: Disp Refills Mirtazapine 30 MG Oral Tablet (REMERON) 30 Tab 1 Sig: Take 1 Tab by mouth at bedtime. Authorizing Provider: PRABHU IBARRA * Telephone Encounter - Jasmin Nevarez OSA - 09/15/2020 1:07 PM EST Pharmacy requesting refill on Remeron. Patient last seen on 07/24/20 with return appointment scheduled for 11/19/20. Patient had 0 cancelled appointments and 0 NO SHOW appointments. Medication was last filled on 08/19/[address] Lilly off on leave documented in this encounter Plan of Treatment Upcoming Encounters Date Type Specialty Care Team Description 09/17/2020 Office Visit Family Medicine Roger Alexandra MD [address] [place] [address] [phone] 09/17/2020 Office Visit Pharmacy [facility] [address] [place] [address] 11/19/2020 Telemedicine Psychiatry Alisha Lilly, DO [address] [place] [address] Health Maintenance Due Date Last Done [...] Documents on File Type Date Recorded Patient Pill Machine Operator Expl 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
--- OUTSIDE RECORDS SUMMARY | 2023-07-25 05:11 | External Medical Summary | Summary of Care ---
Author Name Unknown Organization [place] [address] Care Team Providers Care Relief Pilot Name Role Phone Roger Alexandra MD Primary Care Provider [phone] Reason for Visit * Reason Comments Dosage Adjustment Via Phone (anticoag Cl inic) Encounter Details Date Type Department Care Team Description 09/05/2020 Anticoagulation Pharmacy, [facility] [address] [place] [address] [facility] [address] [place] [address] Cerebrovascular disease, arteriosclerotic, post-stroke* Allergies Active Allergy Reactions Severity Noted Date Comments Aspirin Unknown 12/12/2007 von Willebrand's disease Salicylates 03/01/2000 von Willebrand's disease documented as of this encounter (statuses as of 09/05/2020) Medications Medication Sig Dispensed Refills Start Date [...] as of this encounter (statuses as of 09/05/2020) Active Problems Problem Noted Date Hemiplegia 06/07/2020 [...] as of this encounter (statuses as of 09/05/2020) Resolved Problems Problem Noted Date Resolved Date [...] as of this encounter (statuses as of 09/05/2020) Immunizations Name Administration Dates Next Due H1N1 [...] this encounter Progress Notes * Erin Pulliam [facility] - 09/05/2020 2:06 PM EDT Medication Therapy Disease Management - Anticoagulation Patient: Kimberly Kendall : 1960 Contacts Type Contact Phone 09/05/2020 02:08 PM EDT Phone (Outgoing) Kimberly Kendall (Self) [phone] (H) Spoke to Patient Current Warfarin Dose As of 09/05/2020 Warfarin maintenance plan: 15 mg (10 mg x 1.5) every Mon; 10 mg (10 mg x 1) all other days Patient-Reported Symptoms: Patient Findings Positives: Change in health (Patient reports she has bronchitis), Missed doses (Missed 3 doses thisweek), Change in medications (On z jax), Change in diet/appetite (Hasnt been eating much because she isnt feeling well) Negatives: Signs/symptoms of thrombosis, Signs/symptoms of bleeding, Change in alcohol use, Change in activity, Upcoming invasive procedure, Extra doses, Bruising INR Result As of 09/05/2020 INR goal: 2.0-3.0 INR used for dosin.40 (09/05/2020) Warfarin Plan As of 09/05/2020 Full warfarin instructions: 09/05: 15 mg; 09/06: 15 mg; Otherwise 15 mg every Mon; 10 mg all other days Next INR check: Additional Dosing Information: Repeat PT/INR in 1.5 week(s) after PCP appointment Weekly dose: not changed Erin Pulliam [facility] Clinical Pharmacist 09/05/2020, 2:21 PM documented in this encounter Plan of Treatment Upcoming Encounters Date Type Specialty Care Team Description 09/17/2020 Office Visit Family Medicine Roger Alexandra MD [address] [place] [address] [phone] 09/17/2020 Office Visit Pharmacy [facility] [place] [address] [place] [address] 11/19/2020 Telemedicine Psychiatry Alisha Lilly, DO [address] [place] [address] [phone] Health Maintenance Due Date Last Done Comments [...] Documents on File Type Date Recorded Patient Grain Combine Driver Expl anation Advanced Directive service a [...]
--- OUTSIDE RECORDS SUMMARY | 2023-07-25 05:11 | External Medical Summary | Summary of Care ---
Author Name Unknown Organization [place] [address] Care Team Providers Care Ict Support Engineer Name Role Phone Roger Alexandra MD Primary Care Provider [phone] Reason for Visit * Reason Comments Left Message Encounter Details Date Type Department Care Team Description 09/20/2020 Anticoagulation Pharmacy, [facility] 132 [place] [address] [facility] 132 [place] [address] Cerebrovascular disease, arteriosclerotic, post-stroke* Allergies Active Allergy Reactions Severity Noted Date Comments Aspirin Unknown 12/12/2007 von Willebrand's disease Salicylates 03/01/2000 von Willebrand's disease documented as of this encounter (statuses as of 09/20/2020) Medications Medication Sig Dispensed Refills Start Date [...] as of this encounter (statuses as of 09/20/2020) Active Problems Problem Noted Date Hemiplegia 06/07/2020 [...] as of this encounter (statuses as of 09/20/2020) Resolved Problems Problem Noted Date Resolved Date [...] as of this encounter (statuses as of 09/20/2020) Immunizations Name Administration Dates Next Due H1N1 [...] Progress Notes * Christine Camejo OSA - 09/20/2020 9:07 AM EST Patient Phone Numbers Left message offering to reschedule OFS Follow up in 1 week if no response sooner documented in this encounter Plan of Treatment Upcoming Encounters Date Type Specialty Care Team Description 09/27/2020 Anticoagulation Pharmacy [facility] 132 [facility] [place] [address] 11/19/2020 Telemedicine Psychiatry Alisha Lilly, DO [address] [facility] [place] [address] Health Maintenance [...] Documents on File Type Date Recorded Patient Conveyor Maintenance Mechanic Expl anation Advanced Directive service a [...]
--- OUTSIDE RECORDS SUMMARY | 2023-07-25 05:12 | External Medical Summary | Summary of Care ---
Author Name Unknown Organization [place] [address] Care Team Providers Care Computer Equipment Repairer Name Role Phone Roger Alexandra MD Primary Care Provider [phone] [phone] Reason for Visit * Reason Comments Dosage Adjustment Via Phone (anticoag Cl inic) Encounter Details Date Type Department Care Team Description 08/29/2020 Anticoagulation Pharmacy, [facility] [address] [place] [address] [facility] [address] [place] [address] Cerebrovascular disease, arteriosclerotic, post-stroke* Allergies Active Allergy Reactions Severity Noted Date Comments Aspirin Unknown 12/12/2007 von Willebrand's disease Salicylates 03/01/2000 von Willebrand's disease documented as of this encounter (statuses as of 08/29/2020) Medications Medication Sig Dispensed Refills Start Date [...] for Cough. 120 mL 0 03/26/2020 Active warfarin sodium (COUMADIN) 10 MG Tablet Take 2 tablets on Wednesday and Wednesday, and 1.5 tablets all other days or as directed by anticoagulation pharmacist. 60 Tab 2 05/13/2020 Active ondansetron (ZOFRAN) 4 MG Tablet Take [...] as of this encounter (statuses as of 08/29/2020) Active Problems Problem Noted Date Hemiplegia 06/07/2020 [...] severe 04/06/2007 SIMA (generalized anxiety disorder) 02/08 condenser setter current use of anticoagulant t herapy 06/01/2005 Overview: ICD-10 update of inactive term Tobacco use disorder documented as of this encounter (statuses as of 08/29/2020) Resolved Problems Problem Noted Date Resolved Date [...] as of this encounter (statuses as of 08/29/2020) Immunizations Name Administration Dates Next Due H1N1 [...] Assigned at Date Recorded Not on file documented as of this encounter Progress Notes * Emmanuel Riley OSA - 08/29/2020 5:30 PM EDT S/w Chey in lab who states pt not scheduled w/GML until 09/05 for pt/inr. She cannot explain why today's visit was cancelled? Thank you, Emmanuel Riley [facility] Triage Registered Nurse I * Abena Moralez [facility] - 08/29/2020 2:27 PM EDT Noted will follow up on 09/05 with INR. Abena Moralez, Pharm D Clinical Pharmacist 08/29/2020, 2:28 PM documented in this encounter Plan of Treatment Upcoming Encounters Date Type Specialty Care Team Description 09/05/2020 Anticoagulation Pharmacy [facility] [address] [place] [address] 09/17/2020 Office Visit Family Medicine Roger Alexandra MD [address] [id number] 11/19/2020 Telemedicine Psychiatry Alisha Lilly, DO [address] [facility] [facility] [place] [address] Health Maintenance Due Date Last Done [...] Documents on File Type Date Recorded Patient Failure Analysis Technician Expl anation Advanced Directive service a [...]
--- OUTSIDE RECORDS SUMMARY | 2023-07-25 05:12 | External Medical Summary | Summary of Care ---
Author Name Unknown Organization [place] [address] Care Team Providers Care Secondary English Teacher Name Role Phone Roger Alexandra MD Primary Care Provider [phone] Reason for Visit * Reason Comments Supervisor [employer] Documentation Encounter Details Date Type Department Care Team Description 07/08/2020 Telephone Care Coordination [address] [place] [address] Solange Omer, [facility] Supervisor [employer] Documentation Allergies Active Allergy Reactions Severity Noted Date Comments Aspirin Unknown 12/12/2007 von Willebrand's disease Salicylates 03/01/2000 von Willebrand's disease documented as of this encounter (statuses as of 07/08/2020) Medications Medication Sig Dispensed Refills Start Date End Date Status OXYGEN 4 L during the day as needed and at bedtime 0 02/14/2015 Active albuterol-ipratrop ium (DUONEB) 2.5-0.5 MG/3ML nebulizer solution Inhale 3 mL by mouth every 4 hours as needed for Shortness of Breath or Wheezing. 0 09/27/2015 Activ e Acetaminophen (TYLENOL) 325 MG CAPS Take by mouth. 0 Active hydrOXYzine HCl 50 MG Tablet Take 1 Tab by mouth 3 times a day as needed for Anxiety. 60 Tab 3 03/05/2020 Active Cholestyramine Light (QUESTRAN LIGHT) 4 GM/DOSE [...] anticoagulation pharmacist. 60 Tab 2 05/13/2020 Active Mirtazapine (REMERON) 30 MG Tablet Take 1 Tab by mouth at bedtime. 30 Tab 2 05/14/2020 Active ondansetron (ZOFRAN) 4 MG Tablet Take 1 Tab by mouth every 8 hours as needed for Nausea. 15 Tab 0 06/07/2020 Active LORAzepam (ATIVAN) 0.5 MG Tablet Take 1 Tab by mouth 2 times a day as needed for Anxiety. 60 Tab 0 06/24/2020 Active sertraline (ZOLOFT) 100 MG Tablet Take 1 Tab by mouth daily. 30 Tab 2 06/26/2020 Active documented as of this encounter (statuses as of 07/08/2020) Active Problems Problem Noted Date Hemiplegia 06/07/2020 [...] as of this encounter (statuses as of 07/08/2020) Resolved Problems Problem Noted Date Resolved Date [...] as of this encounter (statuses as of 07/08/2020) Immunizations Name Administration Dates Next Due H1N1 [...] file Not on file Not on file Travel History Travel Start Travel End COVID-19 Exposure Response Date Recorded In the last month, have you been in contact with someone who was confirmed or suspected to have Coronavirus / COVID-19? No / Unsure 07/08/2020 11:07 AM EDT documented as of this encounter Miscellaneous Notes * Telephone Encounter - Solange Omer LSW - 07/08/2020 12:30 PM EDT [facility] spoke with pt this date. S: Pt reports she is not doing well. Feeling overwhelmed with life. Housing major stressor. Has submitted application for a house in [place]. Waiting to hear on credit and criminal background check. Pt denies legal hx. Credit hx fair. Pt [facility]. Pt's granddaughter and granddaughter's boyfriend live with pt. Both of them work and assist financially with rent. Granddaughter and boyfriend plan to move with pt. Pt does not feel psych meds are at a good therapeutic level. Reports shaking with anxiety. Not sleeping. Chest pain. Loose stools for 2-3 days. Grieving recent loss of (end of March 2020). Pt spoke of how this loss has resurfaced the lossof her 25 yr old dtr and her first in 2004. Pt's dtr was being treated for anxiety when shedied in her sleep. Pt was the one who found her. O: Phone encounter. A: Pt alert and oriented x3. Affect anxious and depressed. Denies S/I. Discussed acute visit with PCP. Pt not willing to see other provider, only PCP. First available apt scheduled for 07/08 at 3:00 pm. Apt confirmed with pt. Pt requesting phone from psychiatry to discuss medications. Message sent to Dr. Lilly making her aware of pt's request. With consent, phone call left for Michell Ej with [facility] regarding housing. Pt receives 36/hrs a week of waiver services. Waiver aides help with transportation to apts. Pt receives SSD and pension. Offered [employer] phonenumber which pt declined. Confirmed pt has [facility] contact info. P: [facility] will f/u with pt in 3-5 days after making contact with [facility]. Will cc PCP and Dr. Lilly on documentation PARVEZ [facility] Veneer Redrier [email or web address] [phone] documented in this encounter Plan of Treatment Upcoming Encounters Date Type Specialty Care Team Description 07/12/2020 Office Visit Family Medicine Roger Alexandra MD [address] [address] [phone] 07/17/2020 Anticoagulation Pharmacy [place], [facility] [address] [place] [address] 07/24/2020 [facility]med[facility] Psychiatry [facility] [address] [facility] [id number] 09/17/2020 Office Visit Family Medicine Roger Alexandra MD [address] [place] [address] [phone] Health Maintenance Due Date Last Done Comments [...] on File Type Date Recorded Patient Insurance Claims Representative Expl 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 Advanced Directive
--- OUTSIDE RECORDS SUMMARY | 2023-07-25 05:12 | External Medical Summary | Summary of Care ---
Author Name Unknown Organization [place] [address] Care Team Providers Care Precision Layout Worker Name Role Phone Roger Alexandra MD Primary Care Provider [phone] Reason for Visit * Reason Comments Emergency Medicine Medical Director Documentation Encounter Details Date Type Department Care Team Description 07/15/2020 Telephone Care Coordination [address] [place] [address] Solange Omer, [facility] Emergency Medicine Medical Director Documentation Allergies Active Allergy Reactions Severity Noted Date Comments Aspirin Unknown 12/12/2007 von Willebrand's disease Salicylates 03/01/2000 von Willebrand's disease documented as of this encounter (statuses as of 07/15/2020) Medications Medication Sig Dispensed Refills Start Date [...] for Nausea. 15 Tab 0 06/07/2020 Active sertraline (ZOLOFT) 100 MG Tablet Take 1 Tab by mouth daily. 30 Tab 2 06/26/2020 Active hydrOXYzine HCl 50 MG Tablet Take 1 Tab by mouth 3 times a day as needed for Anxiety. 60 Tab 3 07/15/2020 Active LORAzepam (ATIVAN) 0.5 MG Tablet Take 1 Tab by mouth 2 times a day as needed for Anxiety. 60 Tab 0 07/15/2020 Active documented as of this encounter (statuses as of 07/15/2020) Active Problems Problem Noted Date Hemiplegia 06/07/2020 [...] severe 04/06/2007 SIMA (generalized anxiety disorder) 02/08 [facility] current use of anticoagulant t herapy 06/01/2005 Overview: ICD-10 update of inactive term Tobacco use disorder documented as of this encounter (statuses as of 07/15/2020) Resolved Problems Problem Noted Date Resolved Date [...] as of this encounter (statuses as of 07/15/2020) Immunizations Name Administration Dates Next Due H1N1 [...] Telephone Encounter - Solange Omer LSW - 07/15/2020 12:37 PM EDT [facility] received voice message regarding med refill. [facility] returned call. S: Pt informed Dr. Lilly called in new refills for Ativan and Hydroxyzine this morning. Pt did notattend of extended family member over the weekend. Plans to call her cousin, mother of the , today to offer support. Pt has been approved for a new home in [place]. Anticipated moved mid-Jul to Aug 15. Pt feeling excited, nervous and scared about the move. At present, pt rece iving 36 hr/week of waiver services through [employer] ([phone], Supports Coordinator - Mili). Pt informed Supports Coordinator 2 weeks ago that she plans to relocate to [facility] but hasnot heard anything back. O: Phone encounter. A: Pt alert and oriented x3. Affect pleasant. Mood anxious. No thoughts of self- harm voiced. With pt consent, voice message left for Adrianna Kassandra who oversees [facility]aiver Services ([phone])to learn what steps pt will need to take to receive waiver services in [facility] upon moving. P: CM will f/u with [facility] in 1-2 weeks to discuss waiver services. Will f/u with pt aftermaking contact with [facility] Hand Tube Bender [email or web address] [phone] documented in this encounter Plan of Treatment Upcoming Encounters Date Type Specialty Care Team Description 07/17/2020 Anticoagulation Pharmacy [facility] [address] [place] [address] 07/24/2020 Telemedicine Psychiatry Alisha Lilly, DO [address] [facility] [place] [address] 09/17/2020 Office Visit Family Medicine Roger Alexandra MD [address] [place] [address] [phone] Health Maintenance Due Date Last Done Comments [...] Documents on File Type Date Recorded Patient Bike Technician Expl 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 Advanced Directive
--- OUTSIDE RECORDS SUMMARY | 2023-07-25 05:12 | External Medical Summary ---
Author Name Unknown Address [facility] [address] [facility] [address] [facility] Phone Organization K[address]:[place] [address] [place] [id number] Laboratory Report Ordering Provider Test Date Status STEFANI MARINELLI 08/08/2020 10:49:00 Final Observation Date Value Abnormality Reference (Units ) Status PT 08/08/2020 13:18 26.1 Above high normal 11.5- 14.6 (seconds) Final INR 08/08/2020 13:18 2.36 Above high normal 0.84- 1.14 Final Performing Location [facility] [address] [facility] [address]
--- OUTSIDE RECORDS SUMMARY | 2023-07-25 05:12 | External Medical Summary | Summary of Care ---
Author Name Unknown Organization [place] [address] Care Team Providers Care Public Health Dietitian Name Role Phone Roger Alexandra MD Primary Care Provider [phone] Reason for Visit * Reason Comments Supervisor Instrument Mechanics Documentation Encounter Details Date Type Department Care Team Description 07/09/2020 Telephone Care Coordination [address] [place] [address] Solange Omer, [facility] Supervisor Instrument Mechanics Documentation Allergies Active Allergy Reactions Severity Noted Date Comments Aspirin Unknown 12/12/2007 von Willebrand's disease Salicylates 03/01/2000 von Willebrand's disease documented as of this encounter (statuses as of 07/09/2020) Medications Medication Sig Dispensed Refills Start Date [...] as of this encounter (statuses as of 07/09/2020) Active Problems Problem Noted Date Hemiplegia 06/07/2020 [...] as of this encounter (statuses as of 07/09/2020) Resolved Problems Problem Noted Date Resolved Date [...] as of this encounter (statuses as of 07/09/2020) Immunizations Name Administration Dates Next Due H1N1 [...] Telephone Encounter - Solange Omer LSW - 07/09/2020 11:39 AM EDT [facility] spoke with pt this date. S: Pt continues to feel overwhelmed. Denies chest pain. Continues to have loose stools, difficulty sleeping, loss of appetite and shaking. Pt contacted realtor yesterday regarding the house she is interested in. Realtor out of the office and should be retuning today. Pt expects phone call this afternoon regarding house. O: Phone encounter. A: Pt alert and oriented x3. Affect anxious. Mood anxious, depressed. Denies thoughts of self-harm.Pt has not yet communicated with Dr. Lilly. Next apt with Dr. Lilly scheduled for 07/24. [facility] spokewith Michell Pagan of Adult Services. She recommends pt contact Ky Tubbs CM with [employer] ([phone]) for guidance. Michell also provided names of 3 Realtor Groups should pt be interested in homes and not apartments: [employer], [employer] and [employer]. Thisinfo shared with pt. Pt does not want to pursue these avenues until she hears back from the realtorworking on her present application. P: Confirmed pt's upcoming PCP apt for 07/12. [facility] will f/u with pt in 3-5 days regarding housing. PARVEZ Sanchez [facility] Sales And Marketing Representative [email or web address] [phone] documented in this encounter Plan of Treatment Upcoming Encounters Date Type Specialty Care Team Description 07/12/2020 Office Visit Family Medicine Roger Alexandra MD [address] [place] [address] [phone] 07/17/2020 Anticoagulation [facility] [address] [address] 07/24/2020 Telemedicine Psychiatry Alisha Lilly, DO [address] [place], [place] [id number] 09/17/2020 Office Visit Family Medicine Roger Alexandra MD [address] [place] [address] [phone] Health Maintenance Due Date Last Done Comments [...] on File Type Date Recorded 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
--- OUTSIDE RECORDS SUMMARY | 2023-07-25 05:12 | External Medical Summary | Summary of Care ---
Author Name Unknown Organization [place] [address] Care Team Providers Care Trestle Builder Name Role Phone Roger Alexandra MD Primary Care Provider [phone] Reason for Visit * Reason Comments Dosage Adjustment Via Phone (anticoag Cl inic) Encounter Details Date Type Department Care Team Description 07/03/2020 Anticoagulation Pharmacy, [facility] [address] [place] [address] [facility] [address] [place] [address] Cerebrovascular disease, arteriosclerotic, post-stroke* Allergies Active Allergy Reactions Severity Noted Date Comments Aspirin Unknown 12/12/2007 von Willebrand's disease Salicylates 03/01/2000 von Willebrand's disease documented as of this encounter (statuses as of 07/03/2020) Medications Medication Sig Dispensed Refills Start Date [...] as of this encounter (statuses as of 07/03/2020) Active Problems Problem Noted Date Hemiplegia 06/07/2020 [...] as of this encounter (statuses as of 07/03/2020) Resolved Problems Problem Noted Date Resolved Date [...] as of this encounter (statuses as of 07/03/2020) Immunizations Name Administration Dates Next Due H1N1 [...] have Coronavirus / COVID-19? Unable to assess 07/03/2020 12:43 AM EDT documented as of this encounter Progress Notes * Abena Moralez, [facility] - 07/03/2020 2:39 PM EDT Medication Therapy Disease Management - Anticoagulation Patient: Kimberly Kendall : 1960 Contacts Type Contact Phone 07/03/2020 02:39 PM Phone (Outgoing) Kimberly Kendall (Self) [phone] (H) Current Warfarin Dose As of 07/03/2020 Warfarin maintenance plan: 15 mg (10 mg x 1.5) every Mon; 10 mg (10 mg x 1) all other days Patient-Reported Symptoms: Patient Findings Negatives: Signs/symptoms of thrombosis, Signs/symptoms of bleeding, Change in health, Change in alcohol use, Change in activity, Upcoming invasive procedure, Missed doses, Extra doses, Change in medications, Change in diet/appetite, Bruising INR Result As of 07/03/2020 INR goal: 2.0-3.0 INR used for dosin.73! (07/03/2020) Warfarin Plan As of 07/03/2020 Full warfarin instructions: 07/03: Hold; Otherwise 15 mg every Mon; 10 mg all other days Next INR check: 07/17/2020 Additional Dosing Information: Repeat PT/INR in 2 week(s) Weekly dose: decreased Abena Moralez [facility] Clinical Pharmacist 07/03/2020, 2:41 PM documented in this encounter Plan of Treatment Upcoming Encounters Date Type Specialty Care Team Description 07/24/2020 Telemedicine Psychiatry Alisha Lilly, DO [address] [facility] [place] [address] 09/17/2020 Office Visit Family Medicine Roger Alexandra MD [address] [place] [place] [address] Health Maintenance Due Date Last Done [...] Documents on File Type Date Recorded Patient Project Intern Expl 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 Advanced Directive
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
--- OUTSIDE RECORDS SUMMARY | 2023-07-25 05:12 | External Medical Summary | Summary of Care ---
Author Name Unknown Organization [place] [address] Care Team Providers Care Supervisor Blasting Name Role Phone Roger Alexandra MD Primary Care Provider [phone] Reason for Visit * Reason Onset Date Comments Medication Question 09/03/2020 Encounter Details Date Type Department Care Team Description 09/03/2020 Telephone Family Practice [facility] [address] [facility] [place] [address] Roger Alexandra MD [address] [place] [address] Medication Question Allergies Active Allergy Reactions Severity Noted Date Comments Aspirin Unknown 12/12/2007 von Willebrand's disease Salicylates 03/01/2000 von Willebrand's disease documented as of this encounter (statuses as of 09/03/2020) Medications Medication Sig Dispensed Refills Start Date [...] as of this encounter (statuses as of 09/03/2020) Active Problems Problem Noted Date Hemiplegia 06/07/2020 [...] as of this encounter (statuses as of 09/03/2020) Resolved Problems Problem Noted Date Resolved Date [...] as of this encounter (statuses as of 09/03/2020) Immunizations Name Administration Dates Next Due H1N1 [...] Miscellaneous Notes * Telephone Encounter - Kerry Reyes, [facility] - 09/03/2020 10:37 AM EDT Patient stated that she has a bottle of Robitussin AC at home that is about 5 months old. I asked for the expiration date on the bottle. They stated that it expires next year. I let her know that shecan use it if needed but it will make her tired. Thanks, Kerry Reyes Clinical Pharmacist Telepharmacy 09/03/2020, 10:39 AM * Telephone Encounter - Dorothy Contreras PHARM Tech - 09/03/2020 10:34 AM EDT Pt calling regarding a medication question. Pt would like to know if she can take guaiFENesin-codeine (ROBITUSSIN AC) 100-10 MG/5ML syrup. The Rx is 5 months old she states. I have warm transferred the Pt to a Tele-pharmacist for further assistance. Thank You, Dorothy Contreras Mechanical Inspector Refill Call Center 09/03/2020, 10:35 AM documented in this encounter Plan of Treatment Upcoming Encounters Date Type Specialty Care Team Description 09/05/2020 Anticoagulation Pharmacy [facility] [address] [place] [address] 09/17/2020 Office Visit Family Medicine Roger Alexandra MD [address] [place] [address] [phone] 11/19/2020 Telemedicine Psychiatry Alisha Lilly, DO [address] [facility] [address] Health Maintenance Due Date [...] Documents on File Type Date Recorded Patient Roofer Vinyl Coating Expl anation Advanced Directive service a yohana [...]
--- OUTSIDE RECORDS SUMMARY | 2023-07-25 05:12 | External Medical Summary | Summary of Care ---
Author Name Unknown [place] [address] Care Team Providers Care Tape Recorder Repairer Name Role Phone Jeevan Mclean MD Primary Care Provider [phone] Encounter Details Date Type Department Care Team Description 09/04/2020 Refill Family Practice [facility] [address] [facility] [address] [place] [id number] Jeevan Mclean MD [address] [facility] [place] [address] [phone] Allergies Active Allergy Reactions Severity Noted Date [...] anticoagulation pharmacist. 60 Tab 2 09/04/2020 Active warfarin sodium (COUMADIN) 10 MG Tablet Take 2 tablets on Wednesday and Wednesday, and 1.5 tablets all other days or as directed by anticoagulation pharmacist. 60 Tab 2 05/13/2020 0 Discontinue d(Refill) documented as of this [...] 04/06/2007 SIMA (generalized anxiety disorder) 02/08 marine habitat resource specialist current use of anticoagulant t herapy 06/01/2005 [...] Telephone Encounter - Jeevan Mclean MD - 09/04/2020 11:46 AM EDT Signed Prescriptions: Disp Refills Warfarin Sodium 10 MG Oral Tablet 60 Tab 2 Sig: Take 2 tablets on Wednesday and Wednesday, and 1.5 tablets all other days or as directed by anticoagulation pharmacist. Authorizing Provider: JEEVAN MCLEAN * Telephone Encounter - Susana Velarde CMA - 09/04/2020 10:18 AM EDT Received fax requesting refill. Penidng order, please sign documented in this encounter Plan of Treatment Upcoming Encounters Date Type Specialty Care Team Description 09/04/2020 Telemedicine Family Medicine Jeevan Mclean MD [address] [place] [address] [phone] 09/05/2020 Laboratory [facility] [place] [address] [place] [address] 09/05/2020 Anticoagulation Pharmacy [facility] [address] [address] 09/17/2020 Office Visit Family Medicine Jeevan Mclean MD [address] [address] [phone] 11/19/2020 Telemedicine Psychiatry Alisha Lilly DO [address] [place] [address] Health Maintenance Due Date Last [...] Documents on File Type Date Recorded Patient Pot Builder Expl anation Advanced Directive service a [...]
--- OUTSIDE RECORDS SUMMARY | 2023-07-25 05:12 | External Medical Summary | Summary of Care ---
Author Name Unknown Organization [place] [address] Care Team Providers Care Clean Room Operator Name Role Phone Roger Alexandra MD Primary Care Provider [phone] Reason for Visit * Reason Onset Date Comments case management 08/23/2020 Encounter Details Date Type Department Care Team Description 08/23/2020 Telephone Care Coordination [address] [place] [address] Solange Omer LSW case management Allergies Active Allergy Reactions Severity Noted Date Comments Aspirin Unknown 12/12/2007 von Willebrand's disease Salicylates 03/01/2000 von Willebrand's disease documented as of this encounter (statuses as of 08/23/2020) Medications Medication Sig Dispensed Refills Start Date [...] at bedtime. 30 Tab 0 08/19/2020 Active documented as of this encounter (statuses as of 08/23/2020) Active Problems Problem Noted Date Hemiplegia 06/07/2020 [...] 04/06/2007 SIMA (generalized anxiety disorder) 02/08 intermodal dispatcher current use of anticoagulant t herapy 06/01/2005 Overview: ICD-10 update of inactive term Tobacco use disorder documented as of this encounter (statuses as of 08/23/2020) Resolved Problems Problem Noted Date Resolved Date [...] as of this encounter (statuses as of 08/23/2020) Immunizations Name Administration Dates Next Due H1N1 [...] Telephone Encounter - Solange Omer LSW - 08/23/2020 9:06 AM EDT Pt plans to move from [facility] to [facility] this coming weekend. Waiver authorizations are through [place] [employer]. Pt's Supports Coordinator with [employer]: Dedrick Lilly, aware of pt's upcoming move. Dedrick will verify move date with pt and complete 1768 form for county transfer. Pt's hope is to keep her same caregiver. Once pt moves to [facility] her new Supports Coordinator through [employer] will be Alexander Benjamin, . PARVE[facility] [email or web address] [phone] documented in this encounter Plan of Treatment Upcoming Encounters Date Type Specialty Care Team Description 08/29/2020 Anticoagulation Pharmacy [facility] [address] [address] 09/17/2020 Office Visit Family Medicine Roger Alexandra MD [address] [address] [phone] 11/19/2020 Telemedicine Psychiatry Alisha Lilly, DO [address] [facility] [place] [address] Health Maintenance Due Date [...] Documents on File Type Date Recorded Patient Pipe Layer Expl 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 Advanced Directive Advanced Directive Advanced Directive Advanced Directive
--- OUTSIDE RECORDS SUMMARY | 2023-07-25 05:12 | External Medical Summary | Summary of Care ---
Author Name Unknown Organization [place] [address] Care Team Providers Care Hair Designer Name Role Phone Roger Alexandra MD Primary Care Provider [phone] Reason for Visit * Reason Comments Dosage Adjustment Via Phone (anticoag Cl inic) Encounter Details Date Type Department Care Team Description 08/08/2020 Anticoagulation Pharmacy, [facility] [address] [place] [address] [address] Cerebrovascular disease, arteriosclerotic, post-stroke* Allergies Active Allergy Reactions Severity Noted Date Comments Aspirin Unknown 12/12/2007 von Willebrand's disease Salicylates 03/01/2000 von Willebrand's disease documented as of this encounter (statuses as of 08/08/2020) Medications Medication Sig Dispensed Refills Start Date [...] mouth daily. 45 Tab 2 07/24/2020 Active documented as of this encounter (statuses as of 08/08/2020) Active Problems Problem Noted Date Hemiplegia 06/07/2020 [...] as of this encounter (statuses as of 08/08/2020) Resolved Problems Problem Noted Date Resolved Date [...] as of this encounter (statuses as of 08/08/2020) Immunizations Name Administration Dates Next Due H1N1 [...] Assigned at Date Recorded Not on file COVID-19 Exposure Response Date Recorded In the last month, have you been in contact with someone who was confirmed or suspected to have Coronavirus / COVID-19? Unable to assess 07/23/2020 8:15 AM EDT documented as of this encounter Progress Notes * Erin Pulliam, [facility] - 08/08/2020 2:25 PM EDT Medication Therapy Disease Management - Anticoagulation Patient: Kimberly Hung Enoch : 1960 Contacts Type Contact Phone 08/08/2020 02:27 PM EDT Phone (Outgoing) Kimberly Kendall (Self) [phone] (H) Spoke to Patient Current Warfarin Dose As of 08/08/2020 Warfarin maintenance plan: 15 mg (10 mg x 1.5) every Mon; 10 mg (10 mg x 1) all other days Patient-Reported Symptoms: Patient Findings Negatives: Signs/symptoms of thrombosis, Signs/symptoms of bleeding, Change in health, Change in alcohol use, Change in activity, Upcoming invasive procedure, Missed doses, Extra doses, Change in medications, Change in diet/appetite, Bruising INR Result As of 08/08/2020 INR goal: 2.0-3.0 INR used for dosin.36 (08/08/2020) Warfarin Plan As of 08/08/2020 Full warfarin instructions: 15 mg every Mon; 10 mg all other days No change documented: Erin Pulilam RPh Next INR check: 08/29/2020 Additional Dosing Information: Repeat PT/INR in 3 week(s) Weekly dose: not changed Erin Pulliam RPh Clinical Pharmacist 08/08/2020, 2:31 PM documented in this encounter Plan of Treatment Upcoming Encounters Date Type Specialty Care Team Description 08/08/2020 Laboratory Laboratory [facility] [place], Lab Processing [facility] [address] [facility] [place] [address] long term care social worker (current) use of anticoagulants*; Cerebrovascular disease, arteriosclerotic, post-stroke; Anticoagulation management encounter; prison current use of anticoagulant therapy 09/17/2020 Office Visit Family Medicine Roger Alexandra MD [address] [facility] [place] [address] Health Maintenance Due Date Last Done [...] Cerebrovascular disease, arteriosclerotic, post-stroke- Primary Cerebral atherosclerosis prison (current) use of anticoagulants- Primary Long-term (current) use of anticoagulants Cerebrovascular disease, arteriosclerotic, post-stroke Cerebral atherosclerosis Anticoagulation management encounter Encounter for therapeutic drug monitoring long term care social worker current use of anticoagulant therapy documented in this encounter Advance Directives Documents on File Type Date Recorded Patient Quartz Cutter Expl 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 Advanced Directive Advanced Directive
--- OUTSIDE RECORDS SUMMARY | 2023-07-25 05:12 | External Medical Summary | Summary of Care ---
Author Name Unknown Organization [place] [address] Care Team Providers Care Seed Packer Name Role Phone Roger Alexandra MD Primary Care Provider [phone] Reason for Visit * Reason Onset Date Comments case management 08/22/2020 Encounter Details Date Type Department Care Team Description 08/22/2020 Telephone Care Coordination [address] [place] [address] Solange Omer LSW case management Allergies Active Allergy Reactions Severity Noted Date Comments Aspirin Unknown 12/12/2007 von Willebrand's disease Salicylates 03/01/2000 von Willebrand's disease documented as of this encounter (statuses as of 08/22/2020) Medications Medication Sig Dispensed Refills Start Date [...] as of this encounter (statuses as of 08/22/2020) Active Problems Problem Noted Date Hemiplegia 06/07/2020 [...] severe 04/06/2007 SIMA (generalized anxiety disorder) 02/08 medical terminologist current use of anticoagulant t herapy 06/01/2005 Overview: ICD-10 update of inactive term Tobacco use disorder documented as of this encounter (statuses as of 08/22/2020) Resolved Problems Problem Noted Date Resolved Date [...] as of this encounter (statuses as of 08/22/2020) Immunizations Name Administration Dates Next Due H1N1 [...] Telephone Encounter - Solange Omer LSW - 08/22/2020 1:18 PM EDT S: Pt reports she is still residing in [facility]. Plans to visit her new place in [place] tomorrow. Not sure if she will move in tomorrow or not. When asked about informing her waiver agency, [facility] ([phone]), of her move pt states she told them but they did not take her seriously. Pt unaware who her Supports Coordinator is that would request waiver servicesbe transferred from [place] to [facility]. Pt presently receiving 36 hrs/week of waiver services. O: Phone encounter. A: Pt alert and oriented x3. Affect pleasant. Mood anxious. Caregiver present at time of call. Consent given to speak with [facility] ([facility]). CRI made aware of pt's upcoming move.[facility]I will attempt to locate pt's Dispatch Machine Runner and will get back in touch with [facility]. P: CM will communicate with Supports Coordinator once contact info provided. F/u with pt in 3-5 days PARVEZ Sanchez [facility] Insurance Policy Issue Clerk [email or web address] [phone] documented in this encounter Plan of Treatment Upcoming Encounters Date Type Specialty Care Team Description 08/29/2020 Anticoagulation Pharmacy [facility], [facility] [address] [place] [address] 09/17/2020 Office Visit Family Medicine Roger Alexandra MD [address] [place] [address] [phone] 11/19/2020 Telemedicine Psychiatry Alisha Lilly, DO [address] [place] [facility] [place] [address] Health Maintenance Due Date Last Done [...] Documents on File Type Date Recorded Patient Before And After School Daycare Worker Expl 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 Advanced Directive Advanced Directive Advanced Directive Advanced Directive
--- OUTSIDE RECORDS SUMMARY | 2023-07-25 05:12 | External Medical Summary ---
Author Name Unknown Address [address] [place] [address] [place] [address] Organization [id number] [place] [address] Laboratory Report Ordering Provider Test Date Status STEFANI MARINELLI 07/24/2020 11:40:00 Final Observation Date Value Abnormality Reference (Units ) Status PT 07/24/2020 16:56 16.9 Above high normal 11.5- 14.6 (seconds) Final INR 07/24/2020 16:56 1.37 Above high normal 0.84- 1.14 Final Performing Location [address] [place] [address]
--- OUTSIDE RECORDS SUMMARY | 2023-07-25 05:12 | External Medical Summary | Summary of Care ---
Author Name Unknown Organization [place] [address] Care Team Providers Care Behavioral Intervention Specialist Name Role Phone Roger Alexandra MD Primary Care Provider [phone] Reason for Visit * Reason Onset Date Comments Medication Refill 08/15/2020 Encounter Details Date Type Department Care Team Description 08/15/2020 Refill Psychiatry, [place] [address] [place] [address] Alisha Lilly, [address] [place] [address] [phone] Allergies Active Allergy Reactions Severity Noted Date Comments Aspirin Unknown 12/12/2007 von Willebrand's disease Salicylates 03/01/2000 von Willebrand's disease documented as of this encounter (statuses as of 08/15/2020) Medications Medication Sig Dispensed Refills Start Date [...] for Anxiety. 60 Tab 0 08/15/2020 Active LORAzepam (ATIVAN) 0.5 MG Tablet Take 1 Tab by mouth 2 times a day as needed for Anxiety. 60 Tab 0 07/15/2020 0 Discontinue d(Refill) documented as of this encounter (statuses as of 08/15/2020) Active Problems Problem Noted Date Hemiplegia 06/07/2020 [...] as of this encounter (statuses as of 08/15/2020) Resolved Problems Problem Noted Date Resolved Date [...] as of this encounter (statuses as of 08/15/2020) Immunizations Name Administration Dates Next Due H1N1 [...] Miscellaneous Notes * Telephone Encounter - Jennifer Garcia CRNP - 08/15/2020 5:03 PM EDT Signed Prescriptions: Disp Refills LORazepam 0.5 MG Oral Tablet (Ativan) 60 Tab 0 Sig: Take 1 Tab by mouth 2 times a day as needed for Anxiety. Authorizing Provider: JENNIFER GARCIA * Telephone Encounter - Vicki Pagan OSA - 08/15/2020 1:32 PM EDT Patient of Dr. Lilly who is out of the office on maternity leave. Patient is requesting refills on Lorazepam 0.5 mg. - last prescribed on 07/15/20 for #60 and 0 refills. Patient last seen on 07/24/[address] Lilly and has a return appt scheduled for 11/19/20 documented in this encounter Plan of Treatment Upcoming Encounters Date Type Specialty Care Team Description 08/29/2020 Anticoagulation Pharmacy [facility] [place] [address] [place] [address] 09/17/2020 Office Visit Family Medicine Roger Alexandra MD [address] [place] [address] [phone] 11/19/2020 Telemedicine Psychiatry Alisha Lilly, DO [address] [place] [address] Health Maintenance Due Date Last [...] Documents on File Type Date Recorded Patient Drying Oven Tender Expl 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 Advanced Directive Advanced Directive Advanced Directive Advanced Directive
--- OUTSIDE RECORDS SUMMARY | 2023-07-25 05:12 | External Medical Summary | Summary of Care ---
Author Name Unknown Organization [place] [address] Care Team Providers Care Culvert Installer Name Role Phone Roger Alexandra MD Primary Care Provider [phone] Encounter Details Date Type Department Care Team Description 07/15/2020 Telephone Psychiatry, [facility] [address] [facility] [address] Alisha Lilly, DO [address] [place] [address] Allergies Active Allergy Reactions Severity [...] for Anxiety. 60 Tab 0 07/15/2020 Active hydrOXYzine HCl 50 MG Tablet Take 1 Tab by mouth 3 times a day as needed for Anxiety. 60 Tab 3 03/05/2020 0 Discontinue d(Refill) LORAzepam (ATIVAN) 0.5 MG Tablet Take 1 Tab by mouth 2 times a day as needed for Anxiety. 60 Tab 0 06/24/2020 0 Discontinue d(Refill) documented as of this [...] AM EDT documented as of this encounter Plan of Treatment Upcoming Encounters Date Type Specialty Care Team Description 07/17/2020 Anticoagulation Pharmacy [facility] [place] [address] [place] [address] 07/24/2020 Telemedicine Psychiatry Alisha Lilly, DO [address] [facility] [place] [address] 09/17/2020 Office Visit Family Medicine Roger Alexandra MD [address] [place] [address] [phone] Health Maintenance Due Date Last Done Comments [...] on File Type Date Recorded Patient Senior Java Programmer Expl 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 Advanced Directive
--- OUTSIDE RECORDS SUMMARY | 2023-07-25 05:12 | External Medical Summary | Summary of Care ---
Author Name Unknown Organization [place] [address] Care Team Providers Care Window Treatment Installer Name Role Phone Roger Alexandra MD Primary Care Provider [phone] [phone] Reason for Visit * Reason Comments Dosage Adjustment Via Phone (anticoag Cl inic) Encounter Details Date Type Department Care Team Description 07/25/2020 Anticoagulation Pharmacy, [facility] [address] [place] [address] [address] Cerebrovascular disease, arteriosclerotic, post-stroke* Allergies Active Allergy Reactions Severity Noted Date Comments Aspirin Unknown 12/12/2007 von Willebrand's disease Salicylates 03/01/2000 von Willebrand's disease documented as of this encounter (statuses as of 07/25/2020) Medications Medication Sig Dispensed Refills Start Date [...] as of this encounter (statuses as of 07/25/2020) Active Problems Problem Noted Date Hemiplegia 06/07/2020 [...] as of this encounter (statuses as of 07/25/2020) Resolved Problems Problem Noted Date Resolved Date [...] as of this encounter (statuses as of 07/25/2020) Immunizations Name Administration Dates Next Due H1N1 [...] this encounter Progress Notes * Abena Moralez, [facility] - 07/25/2020 9:27 AM EDT Medication Therapy Disease Management - Anticoagulation Patient: Kimberly Kendall : 1960 Contacts Type Contact Phone 07/25/2020 09:27 AM Phone (Outgoing) Kimberly Kendall (Self) [phone] (H) Current Warfarin Dose As of 07/25/2020 Warfarin maintenance plan: 15 mg (10 mg x 1.5) every Mon; 10 mg (10 mg x 1) all other days Patient-Reported Symptoms: INR Result As of 07/25/2020 INR goal: 2.0-3.0 INR used for dosin.37! (07/24/2020) Warfarin Plan As of 07/25/2020 Full warfarin instructions: 07/25: 20 mg; Otherwise 15 mg every Mon; 10 mg all other days Next INR check: 08/08/2020 Additional Dosing Information: Repeat PT/INR in 2 week(s) Weekly dose: not changed Abena Moralez [facility] Clinical Pharmacist 07/25/2020, 9:27 AM documented in this encounter Plan of Treatment Upcoming Encounters Date Type Specialty Care Team Description 09/17/2020 Office Visit Family Medicine Roger Alexandra MD [address] [place] [address] [place] [address] Health Maintenance Due Date [...] Documents on File Type Date Recorded Patient Nutrition Consultant Expl 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 Advanced Directive
--- OUTSIDE RECORDS SUMMARY | 2023-07-25 05:12 | External Medical Summary | Summary of Care ---
Author Name Unknown Organization [place] [address] Care Team Providers Care Healthcare Recruiter Name Role Phone Roger Alexandra MD Primary Care Provider [phone] Reason for Visit * Reason Comments Pit Recorder Documentation Encounter Details Date Type Department Care Team Description 07/12/2020 Telephone Care Coordination [address] [place] [address] Solange Omer, [facility] Pit Recorder Documentation Allergies Active Allergy Reactions Severity Noted Date Comments Aspirin Unknown 12/12/2007 von Willebrand's disease Salicylates 03/01/2000 von Willebrand's disease documented as of this encounter (statuses as of 07/12/2020) Medications Medication Sig Dispensed Refills Start Date [...] as of this encounter (statuses as of 07/12/2020) Active Problems Problem Noted Date Hemiplegia 06/07/2020 [...] severe 04/06/2007 SIMA (generalized anxiety disorder) 02/08 longterm current use of anticoagulant t herapy 06/01/2005 Overview: ICD-10 update of inactive term Tobacco use disorder documented as of this encounter (statuses as of 07/12/2020) Resolved Problems Problem Noted Date Resolved Date [...] as of this encounter (statuses as of 07/12/2020) Immunizations Name Administration Dates Next Due H1N1 [...] Telephone Encounter - Solange Omer LSW - 07/12/2020 2:42 PM EDT Phone call received from pt. S: Pt states she is not doing well. Her cousin's grandson a few months ago in a 4 callaway accident, and this week the cousin's son in a motorcycle accident. is tomorrow. Pt unable to attend. Second's (March 2020) still raw, and grief and loss of her dtr and first deaths in 2004 have resurfaced. Pt feeling guilty she cannot be present for her cousin when she is barely surviving herself. O: Phone encounter. States, "My family is cursed". A: Pt alert and oriented x3. Affect tearful. Mood anxious, depressed. Assessed suicidality. Denies suicidal ideations, intent, plan. Discussed inpt . Pt declines. PCP apt cancelled for today. Scheduled to see Dr. Lilly on 07/24. Pt states she will be running out of Ativan and Hydroxyzine over the weekend and is requesting a refill to get her through until her 07/24 apt. Staff message will be sent to Dr. Lilly and PCP. [facility] has offered [place] Crisis number in past which pt has declined. Pt will reach out to family over the weekend if support needed. P: [facility] will send message to Dr. Lilly and PCP. Pt can reached at her home number: [phone]. Will f/u with pt in one week. PARVEZ Sanchez [facility] Behavioral Health General Inspector [email or web address] [phone] documented in this encounter Plan of Treatment Upcoming Encounters Date Type Specialty Care Team Description 07/17/2020 Anticoagulation Pharmacy [facility], [facility] [place] [address] [place] [address] 07/24/2020 Telemedicine Psychiatry Alisha Lilly, DO [address] [place] [address] 09/17/2020 Office Visit Family Medicine Roger Alexandra MD [address] [place] [address] [phone] Health Maintenance Due Date Last Done Comments [...] Documents on File Type Date Recorded Patient Typing Bookkeeper Expl 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 Advanced Directive
--- OUTSIDE RECORDS SUMMARY | 2023-07-25 05:12 | External Medical Summary | Summary of Care ---
Author Name Unknown Organization [place] [address] Care Team Providers Care Outside Production Inspector Name Role Phone Roger Alexandra MD Primary Care Provider [phone] [phone] Reason for Visit * Reason Comments Math Professor Documentation Encounter Details Date Type Department Care Team Description 07/23/2020 Telephone Care Coordination [address] [place] [address] Solange Omer, [facility] Math Professor Documentation Allergies Active Allergy Reactions Severity Noted Date Comments Aspirin Unknown 12/12/2007 von Willebrand's disease Salicylates 03/01/2000 von Willebrand's disease documented as of this encounter (statuses as of 07/23/2020) Medications Medication Sig Dispensed Refills Start Date [...] as of this encounter (statuses as of 07/23/2020) Active Problems Problem Noted Date Hemiplegia 06/07/2020 [...] as of this encounter (statuses as of 07/23/2020) Resolved Problems Problem Noted Date Resolved Date [...] as of this encounter (statuses as of 07/23/2020) Immunizations Name Administration Dates Next Due H1N1 [...] Telephone Encounter - Solange Omer LSW - 07/23/2020 1:51 PM EDT [facility] spoke with Adrianna Cannon of Office of Aging who states pt's Supports Coordinator needs to begintransferring MA and other records over to [facility]. Adrianna states filling 36/hrs a week is going yousuf difficult with Covid-19 pandemic. [facility] attempted to contact pt to confirm Supports Coordinator has begun making arrangements for pt'scare to be transferred from [place] to [facility]. Waiver caregiver answered the phone and states pt was sleeping at time of call. Will f/u with pt in 3-5 days. PARVEZ Sanchez Behavioral Health Clinical Project Manager [email or web address] [phone] documented in this encounter Plan of Treatment Upcoming Encounters Date Type Specialty Care Team Description 07/24/2020 Laboratory Laboratory Processing [facility], Lab Processing [address] [place] [address] 07/24/2020 Telemedicine Psychiatry Alisha Lilly, DO [address] [facility] [place] [address] [phone] 07/24/2020 Anticoagulation Pharmacy [facility] [place] [address] [facility] [place] [address] 09/17/2020 Office Visit Family Medicine Roger Alexandra MD [address] [facility] [place] [address] [phone] Health Maintenance Due Date Last Done Comments [...] on File Type Date Recorded Patient Director Client Services Expl 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 Advanced Directive
--- OUTSIDE RECORDS SUMMARY | 2023-07-25 05:12 | External Medical Summary | Summary of Care ---
Author Name Unknown Organization [place] [address] Care Team Providers Care Jig Builder Name Role Phone Roger Alexanrda MD Primary Care Provider [phone] Reason for Visit * Reason Comments Appointment Encounter Details Date Type Department Care Team Description 07/11/2020 Telephone Family Practice [facility] [address] [place] [address] Roger Alexandra MD 132 [facility] [place] [address] [phone] Appointment Allergies Active Allergy Reactions Severity Noted [...] Telephone Encounter - Saray Bright OSA - 07/12/2020 10:19 AM EDT Cancelled appt. Pt aware. Advised pt if pains worsen to call and schedule or go to ER * Telephone Encounter - Roger Alexandra MD - 07/11/2020 5:20 PM EDT I don't manage this patient's psych medication but they put her on with me for "anxiety." She has an appointment coming up with Dr. Lilly. Please cancel her appointment with me today. documented in this encounter Plan of Treatment Upcoming Encounters Date Type Specialty Care Team Description 07/17/2020 Anticoagulation Pharmacy [facility], [facility] [place] [address] [place] [address] 07/24/2020 Telemedicine Psychiatry [facility] Alishatamar Newman, DO [address] [facility] [address] 09/17/2020 Office Visit Family Medicine Roger Alexandra MD [address] [place] [address] [phone] Health Maintenance Due Date Last Done Comments [...] Documents on File Type Date Recorded Patient Broth Setter Expl 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 Advanced Directive
--- OUTSIDE RECORDS SUMMARY | 2023-07-25 05:12 | External Medical Summary | Summary of Care ---
Author Name Unknown Organization [place] [address] Care Team Providers Care Rf Test Engineer Name Role Phone Roger Alexandra MD Primary Care Provider [phone] Reason for Visit * Reason Comments Dosage Adjustment Via Phone (anticoag Cl inic) Encounter Details Date Type Department Care Team Description 08/08/2020 Anticoagulation Pharmacy, [facility] [address] [place] [address] [address] Cerebrovascular disease, arteriosclerotic, post-stroke* Allergies Active Allergy [...] this encounter Progress Notes * Erin Pulliam, [facility] - 08/08/2020 2:25 PM EDT Medication Therapy Disease Management - Anticoagulation Patient: Kimberly Kendall : 1960 Current Warfarin Dose As of 08/08/2020 Warfarin [...] all other days No change documented: Erin Pulliam RPh Next INR check: 08/29/2020 Additional Dosing Information: Repeat PT/INR in 3 week(s) Weekly dose: not changed Erin Pulliam RPh Clinical Pharmacist 08/08/2020, 2:31 PM documented in this encounter Plan of Treatment Upcoming Encounters Date Type Specialty Care Team Description 08/08/2020 Laboratory Laboratory Processing [place], Lab Processing [facility] [address] [facility] [place] [address] terminal superintendent (current) use of anticoagulants*; Cerebrovascular disease, arteriosclerotic, post-stroke; Anticoagulation management encounter; terminal 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 therapy 09/17/2020 Office Visit Family Medicine Roger Alexandra MD 132 [facility] [place] [address] Health Maintenance Due Date [...] Cerebrovascular disease, arteriosclerotic, post-stroke- Primary Cerebral atherosclerosis terminal superintendent (current) use of anticoagulants- Primary Long-term (current) use of anticoagulants Cerebrovascular disease, arteriosclerotic, post-stroke Cerebral atherosclerosis Anticoagulation management encounter Encounter for therapeutic drug monitoring detention current use of anticoagulant therapy documented in this encounter Advance Directives Documents on File Type Date Recorded Patient Travel Ot Expl 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 Advanced Directive Advanced Directive
--- OUTSIDE RECORDS SUMMARY | 2023-07-25 05:12 | External Medical Summary | Summary of Care ---
Author Name Unknown Organization [place] [address] Care Team Providers Care Broomcorn Scraper Name Role Phone Roger Alexandra MD Primary Care Provider [phone] [phone] Reason for Visit * Reason Comments Dosage Adjustment Via Phone (anticoag Cl inic) Encounter Details Date Type Department Care Team Description 07/18/2020 Anticoagulation Pharmacy, 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 Unable to assess 07/17/2020 12:14 AM EDT documented as of this encounter Progress Notes * Abena Moralez RPh - 07/18/2020 2:23 PM EDT Home phleb reschedule to 07/23. Abena Moralez, Pharm D Clinical Pharmacist 07/18/2020, 2:24 PM documented in this encounter Plan of Treatment Upcoming Encounters Date Type Specialty Care Team Description 07/23/2020 Anticoagulation Pharmacy [place] [address] [place] [address] 07/24/2020 Telemedicine Psychiatry Alisha Lilly, DO [address] [facility] [place] [address] [phone] 09/17/2020 Office Visit Family Medicine Roger Alexandra MD [address] [place] [address] [phone] Health Maintenance Due Date Last Done Comments [...] Documents on File Type Date Recorded Patient Packager And Strapper Expl 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 Advanced Directive
--- OUTSIDE RECORDS SUMMARY | 2023-07-25 05:13 | External Medical Summary ---
Author Name Unknown Address [address] [place] [address] [place] [address] Organization K1[facility]:[address] [place] [address] Laboratory Report Ordering Provider Test Date Status STEFANI MARINELLI 06/18/2020 14:25:00 Final Observation Date Value Abnormality Reference (Units ) Status PT 06/18/2020 15:47 19.1 Above high normal 11.5- 14.6 (seconds) Final INR 06/18/2020 15:47 1.59 Above high normal 0.84- 1.14 Final Performing Location [address] [place] [address]
--- OUTSIDE RECORDS SUMMARY | 2023-07-25 05:13 | External Medical Summary | Summary of Care ---
Author Name Unknown Organization [place] [address] Care Team Providers Care Surveyor Helper Rod Name Role Phone Roger Alexandra MD Primary Care Provider [phone] Reason for Visit * Reason Comments Psychological Evaluation * Evaluate & Treat - Unlimited Visits (Within 10 days (routine)) Status Reason Specialty Diagnoses / Procedures Referred By Contact Referred To Contact Pending Review Specialty Services Required Psychology Diagnoses SIMA (generalized anxiety disorder) MDD (major depressive disorder), recurrent episode, moderate (HCC) Alisha Lilly, DO [address] [place] [address] Encounter Details Date Type Department Care Team Description 06/11/2020 Telemedicine Psychology [address] [address] Laura Mckinley PsyD [address] [place] [address] SIMA (generalized anxiety disorder)*; Episode of recurrent major depressive disorder, unspecified depression episode severity (HCC); Grief Allergies Active Allergy Reactions Severity Noted Date Comments Aspirin Unknown 12/12/2007 von Willebrand's disease Salicylates 03/01/2000 von Willebrand's disease documented as of this encounter (statuses as of 06/11/2020) Medications Medication Sig Dispensed Refills Start Date [...] at bedtime. 30 Tab 2 05/14/2020 Active LORAzepam (ATIVAN) 0.5 MG Tablet Take 1 Tab by mouth 2 times a day as needed for Anxiety. 60 Tab 0 05/22/2020 Active sertraline (ZOLOFT) 50 MG Tablet Take 1 Tab by mouth daily. In the morning. Take 25 mg for 1 week then increase to 50 mg 30 Tab 2 06/07/2020 Active ondansetron (ZOFRAN) 4 MG Tablet Take 1 Tab by mouth every 8 hours as needed for Nausea. 15 Tab 0 06/07/2020 Active documented as of this encounter (statuses as of 06/11/2020) Active Problems Problem Noted Date Hemiplegia 06/07/2020 [...] as of this encounter (statuses as of 06/11/2020) Resolved Problems Problem Noted Date Resolved Date [...] as of this encounter (statuses as of 06/11/2020) Immunizations Name Administration Dates Next Due H1N1 [...] have Coronavirus / COVID-19? No / Unsure 06/11/2020 11:12 AM EDT documented as of this encounter Progress Notes * Elías Laura Maninder - 06/11/2020 11:00 AM EDT Primary Care Behavioral Health Evaluation Psychology [facility] [address] [facility] [place] [address] 06/11/2020 Referring physician: Roger Alexandra MD This visit was conducted today via telephone due to COVID-19 concern/protocol. After connecting through telephone, patient was verified by and home address where pt was physically located. Patient was then informed that this was a Telemedicine visit and that the exam was being conducted confidentially over secure lines. I was at home and my room door was closed. No one else was in the room with me. Patient acknowledged consent and understanding of privacy and security of the Telemedicine visit. The patient agreed to participate. AND Pt was not able to physically sign Psychiatry consent form because this is a telehealth service being temporarily provided as part of COVID-19 social distancing protocol. However, the limitations of confidentially were discussed and pt consented to be seen for today's visit. Electronic telehealth consent form was signed by patient. REASON FOR REFERRAL Kimberly Kendall is a 60 year old female who was referred for assessment and possible treatmentof anxiety and depression. See EMR for full medication list and problem list. Primary language of patient was Cymro. Informed consent, limits of confidentiality, the consultative nature of the first visit, and documentation in the electronic record were reviewed. PRESENTING SYMPTOMS (including onset, duration, and frequency of symptoms, as well social support and risk factors if relevant) Pt reports nursing home hx of depression and anxiety. States that in 2004 her 25 yrs old daughter and within 4 months of that she lost her first . States that since then she feels shedid not recover from anxiety and depression. In march of this year her second andfeels that she is unable to "control" her anxiety and depression, believes that medications are "not working", states that she is not sleeping well and was focused on changing her meds. I encouraged her to speak to Dr. Lilly who manages her psychiatric meds. We also discussed the frequency of therapy sessions and agreed that she would require weekly sessions given the "intensity" of her anxiety and depression. With pt's permission I contacted Dr. Orr's office in [place] close to pts home who agreed to contact pt for weekly therapy sessions. Dr. Deanne Orr [phone] DEMOGRAPHIC/BACKGROUND INFORMATION 60 yrs old female, second two months ago, has two sons who check on her and shesees them as her support system. States that she is "disable" from several medical illnesses. DIAGNOSES SIMA Major depression, recurrent, unspecified Grief TREATMENT PLAN Patient was referred out to the community. A list of behavioral resources was given. Treatment goal(s): ? Improve self-management of NA. Treatment objective(s): ? Reduce symptoms of depression and anxiety as measured by the PHQ-9 and SIMA-7. These measures willbe administered next time the pt is in the clinic. ? Improve daily functionality despite symptoms. Treatment intervention(s): ? NA This treatment plan was based on information obtained during todays appointment and was reviewedwith the patient. Patient voices understanding and concurs with plan. This plan will be reassessed in 90 days. Treatment plan was reviewed with pt today; however, pt was not able to physically sign treatment plan form because this is a telehealth service being temporarily provided as part of [facility]- social distancing protocol. Pt will sign treatment plan the next time she is in the office. HEALTH BEHAVIORS AND SUBSTANCE USE Nicotine: Current smoker, PACK/DAY for SEVERAL years Alcoholic beverages: none Illicit Drugs: none currently Caffeinated beverages: 1-2 per day Exercise: none Diet: did not identify any problems Strengths: good support system Medication Adherence: Very good, rarely misses doses Sleep: Needs medication to sleep PSYCHIATRIC SYMPTOM SCREENING PHQ-9 (depression screening) and SIMA-7 (generalized anxiety screening) were not administered due tothis being a telemedicine visit. These measures will be administered the next time the pt is in theoffice. Trauma History: denied SUICIDE RISK ASSESSMENT (using [place] Suicide Severity Rating Scale): In the past month, pt has had thoughts of being better off ? no In the past month, pt has had thoughts of killing him/herself? no If yes to question 2, add dot-phrase PSYCOLUMBIAOP TREATMENT HISTORY Past treatment: Inpatient and Psychotropic medications Current treatment: Psychotropic medications, including Zoloft, Ativan, Hydorxyzine, and Remeron Family History: PTSD, Schizophrenia, depression and anxiety MENTAL STATUS AND BEHAVIORAL OBSERVATIONS Appearance: unable to assess since this was a telephone visit Behavior: within normal limits Speech: normal pitch, rate, and volume Affect: congruent with content of conversation Thought Process: within normal limits and goal directed Thought Content: within normal limits Delusions: none Hallucinations: none Crystal: none Intellectual Function: within normal limits Sensorium: alert and oriented to person, place, time, and situation Cognition: grossly intact Insight/Judgment: good Laura Mckinley PsyD Primary Care Behavioral Health Psychology [facility] [address] [facility] [place] [address] documented in this encounter Plan of Treatment Upcoming Encounters Date Type Specialty Care Team Description 06/14/2020 Laboratory Laboratory Processing [facility], Lab Processing [address] [place] [address] 06/14/2020 [facility] [address] [place] [address] 09/17/2020 Office Visit Family Medicine Roger Alexandra MD [address] [facility] [place] [address] [phone] Scheduled Referrals Name Type Priority Associated Diagnoses Orde r Schedule PSYCHOLOGY REFERRAL OP Referral Within 10 days (routine) SIMA (generalized anxiety disorder) MDD (major depressive disorder), recurrent episode, moderate (HCC) Ordered: 04/24/2020 Health Maintenance Due Date Last Done Comments [...] (generalized anxiety disorder)- Primary Generalized anxiety disorder Episode of recurrent major depressive disorder, unspecified depression episode severity (HCC) Grief Adjustment disorder with depressed mood documented in this encounter Advance Directives Documents on File Type Date Recorded Patient Train Conductor Expl 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 Advanced Directive
--- OUTSIDE RECORDS SUMMARY | 2023-07-25 05:13 | External Medical Summary | Summary of Care ---
Author Name Unknown Organization [place] [address] Care Team Providers Care Linux System Administrator Name Role Phone Roger Alexandra MD Primary Care Provider [phone] Reason for Visit * Reason Comments Other Encounter Details Date Type Department Care Team Description 06/11/2020 Telephone Psychiatry, [place] [address] [place] [address] Alisha Lilly, [address], [place] [id number] Other Allergies Active Allergy Reactions Severity Noted [...] have Coronavirus / COVID-19? Unable to assess 06/07/2020 1:09 AM EDT documented as of this encounter Miscellaneous Notes * Telephone Encounter - Alisha Lilly DO - 06/11/2020 9:00 AM EDT Unfortunately, I am booked the remainder of the day. We did just meet a few days ago. She can reschedule for a later date. I will be out of the office Wednesday through Wednesday. She can also send a MyG or relay any concerns she has * Telephone Encounter - Renata Quintana OSA - 06/11/2020 8:38 AM EDT Patient call because she missed your call this morning. She thought her appointment was at 11 o'clock. Requesting to speak with you. Stating that she needs to talk to you. She apologies for missing the appointment. documented in this encounter Plan of Treatment Upcoming Encounters Date Type Specialty Care Team Description 06/11/2020 Therapy Psychology Laura Mckinley, Man[place] [address] [place] [address] 06/14/[address] [facility], Lab Processing [address] [place] [address] 06/14/2020 Anticoagulation Pharmacy [facility] [place] [address] [facility] [place] [id number] 09/17/2020 Office Visit Family Medicine Roger Alexandra MD [address] [facility] [place] [address] [phone] Health Maintenance Due Date Last Done Comments [...] Documents on File Type Date Recorded Patient Websphere Process Server Developer Expl 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 Advanced Directive
--- OUTSIDE RECORDS SUMMARY | 2023-07-25 05:13 | External Medical Summary | Summary of Care ---
Author Name Unknown Organization [place] [address] Care Team Providers Care Manufactured Buildings Repairer Name Role Phone Roger Alexandra MD Primary Care Provider [phone] Reason for Visit * Reason Comments Medication Refill Encounter Details Date Type Department Care Team Description 06/24/2020 Refill [facility] [place] [address] [place] [address] [facility] [address] [place], [place] [id number] Allergies Active Allergy Reactions Severity Noted Date Comments Aspirin Unknown 12/12/2007 von Willebrand's disease Salicylates 03/01/2000 von Willebrand's disease documented as of this encounter (statuses as of 06/24/2020) Medications Medication Sig Dispensed Refills Start Date [...] at bedtime. 30 Tab 2 05/14/2020 Active sertraline (ZOLOFT) 50 MG Tablet Take [...] for Anxiety. 60 Tab 0 06/24/2020 Active LORAzepam (ATIVAN) 0.5 MG Tablet Take 1 Tab by mouth 2 times a day as needed for Anxiety. 60 Tab 0 05/22/2020 0 Discontinue d(Refill) documented as of this encounter (statuses as of 06/24/2020) Active Problems Problem Noted Date Hemiplegia 06/07/2020 [...] as of this encounter (statuses as of 06/24/2020) Resolved Problems Problem Noted Date Resolved Date [...] as of this encounter (statuses as of 06/24/2020) Immunizations Name Administration Dates Next Due H1N1 [...] Telephone Encounter - Alisha Lilly DO - 06/24/2020 2:20 PM EDT Signed Prescriptions: Disp Refills LORAzepam (ATIVAN) 0.5 MG Tablet 60 Tab 0 Sig: Take 1 Tab by mouth 2 times a day as needed for Anxiety. Authorizing Provider: ALISHA LILLY * Telephone Encounter - Vicki Pagan OSA - 06/24/2020 12:24 PM EDT Patient calling for refills on ativan 0.5 mg - last prescribed on 05/22/20 for #60 and 0 refills. Patient last seen on 06/07/20, has had 1 no show and has a return appt scheduled for 07/24/20 documented in this encounter Plan of Treatment Upcoming Encounters Date Type Specialty Care Team Description 07/24/2020 Telemedicine Psychiatry Alisha Lilly DO [address] [facility] [place] [address] 09/17/2020 Office Visit Family Medicine Roger Alexandra MD [address] [place], [place] [address] [address] Health Maintenance Due Date Last Done [...] 01/04/2020 *ADVANCE DIRECTIVE NOT ON FILE 03/08/2020 *CXR OR CT FOR COPD EVER 06/22/2020 Influenza Vaccine (FLU shot) (#1) 2020 08/21/2015, [...] on File Type Date Recorded Patient Construction Safety Consultant Expl 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 Advanced Directive
--- OUTSIDE RECORDS SUMMARY | 2023-07-25 05:13 | External Medical Summary | Summary of Care ---
Author Name Unknown Organization [place] [address] Care Team Providers Care Renal Nurse Name Role Phone Roger Alexandra MD Primary Care Provider [phone] Reason for Visit * Reason Comments Other Encounter Details Date Type Department Care Team Description 06/11/2020 Telephone Psychiatry, [place] [address] [place] [address] Alisha Lilly, [address], [place] [id number] Other Allergies Active Allergy Reactions Severity Noted [...] encounter Miscellaneous Notes * Telephone Encounter - Kenya Mahmood, RUFINA - 06/11/2020 4:12 PM EDT When I took the initial call from this patient, she stated she is having really bad panic attacks and wanted to talk to you about her medications. She said she missed her appt this morning because she forgot about it and was in the shower at that time. She said she is not alone (her caregiver is there until 5). I recommended seeking the ED if she felt like the attacks were out of control. She started to cry and said "I can't go to the emergency room, I have things to do". She just wanted to get a message to you to call her. * Telephone Encounter - Vicki Pagan OSA - 06/11/2020 4:08 PM EDT Patient calling - missed your call this morning. Having severe anxiety today, crying, stating she needs to talk to you to calm her down. Caregiver, Gisel, states that patient takes her medications and they do not help her. Patient states she is "scared to losing her house" and very stressed out. Please call patient at [phone] (cell) [phone] (house) documented in this encounter Plan of Treatment Upcoming Encounters Date Type Specialty Care Team Description 06/14/2020 Laboratory Laboratory Processing [facility], Lab Processing [address] [place] [address] 06/14/2020 Anticoagulation Pharmacy [facility] [address] [facility] [place] [id number] 09/17/2020 Office Visit Family Medicine Roger Alexandra MD [address] [facility] [place] [address] [phone] Health Maintenance Due Date Last Done Comments [...] Documents on File Type Date Recorded Patient Pick Pulling 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
--- OUTSIDE RECORDS SUMMARY | 2023-07-25 05:13 | External Medical Summary | Summary of Care ---
Author Name Unknown Organization [place] [address] Care Team Providers Care Tractor Operator Helper Name Role Phone Roger Alexandra MD Primary Care Provider [phone] Reason for Visit * Reason Comments Other Encounter Details Date Type Department Care Team Description 06/21/2020 Telephone Psychiatry, [place] [address] [place] [address] Alisha Lilly, [address] [place], [place] [id number] Other Allergies Active Allergy Reactions Severity Noted Date Comments Aspirin Unknown 12/12/2007 von Willebrand's disease Salicylates 03/01/2000 von Willebrand's disease documented as of this encounter (statuses as of 06/26/2020) Medications Medication Sig Dispensed Refills Start Date [...] mouth daily. 30 Tab 2 06/26/2020 Active LORAzepam (ATIVAN) 0.5 MG Tablet Take 1 Tab by mouth 2 times a day as needed for Anxiety. 60 Tab 0 05/22/2020 0 Discontinue d(Refill) sertraline (ZOLOFT) 50 MG Tablet Take 1 Tab by mouth daily. In the morning. Take 25 mg for 1 week then increase to 50 mg 30 Tab 2 06/07/2020 0 Discontinue d(Refill) documented as of this encounter (statuses as of 06/26/2020) Active Problems Problem Noted Date Hemiplegia 06/07/2020 [...] as of this encounter (statuses as of 06/26/2020) Resolved Problems Problem Noted Date Resolved Date [...] as of this encounter (statuses as of 06/26/2020) Immunizations Name Administration Dates Next Due H1N1 [...] encounter Miscellaneous Notes * Addendum Note - Ailsha Lilly DO - 06/26/2020 3:52 PM EDT Addended by: ALISHA LILLY on: 06/26/2020 03:52 PM Modules accepted: Orders * Telephone Encounter - Alisha Lilly DO - 06/26/2020 3:48 PM EDT Kimberly states that her nerves are very bad. She is having a hard time concentrating. She denies SI/HI/AVH. She has been feeling very anxious. Kimberly has been taking the Ativan 0.5 mg BID. She is not sure if this has been helpful. She is interested in increasing Zoloft. We discussed increasing to 100 mg daily. Discussed side effects. She has tolerated the 50 mg well. Encouraged her to call me with an update in a few days * Telephone Encounter - Alisha Lilly DO - 06/24/2020 9:47 AM EDT Attempted to call. No answer. If she does call again strongly encourage therapy, grief counseling. Also, maybe she can try to reset her [employer] password as we keep missing each other * Telephone Encounter - Renata Quintana OSA - 06/21/2020 4:45 PM EDT Patient requesting that she speak with you since her appoint is not until 07/24. She has not been able to get the [facility] set up yet-something with the password. documented in this encounter Plan of Treatment Upcoming Encounters Date Type Specialty Care Team Description 06/27/2020 Anticoagulation Pharmacy [facility] [place] [address] [place] [address] 07/24/2020 Telemedicine Psychiatry Alisha Lilly DO [address] [facility] [place] [address] 09/17/2020 Office Visit Family Medicine Roger Alexandra MD [address] [place] [address] [phone] Health Maintenance Due Date Last Done Comments [...] Documents on File Type Date Recorded Patient Bander And Cellophaner Machine Helper Expl 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 Advanced Directive
--- OUTSIDE RECORDS SUMMARY | 2023-07-25 05:13 | External Medical Summary | Summary of Care ---
Author Name Unknown Organization [place] [address] Care Team Providers Care Nurseryman Assistant Name Role Phone Roger Alexandra MD Primary Care Provider [phone] Reason for Visit * Reason Comments Marketing Project Coordinator Documentation Encounter Details Date Type Department Care Team Description 07/01/2020 Telephone Care Coordination [address] [place] [address] Solange Omer, [facility] Marketing Project Coordinator Documentation Allergies Active Allergy Reactions Severity Noted Date Comments Aspirin Unknown 12/12/2007 von Willebrand's disease Salicylates 03/01/2000 von Willebrand's disease documented as of this encounter (statuses as of 07/01/2020) Medications Medication Sig Dispensed Refills Start Date [...] as of this encounter (statuses as of 07/01/2020) Active Problems Problem Noted Date Hemiplegia 06/07/2020 [...] as of this encounter (statuses as of 07/01/2020) Resolved Problems Problem Noted Date Resolved Date [...] as of this encounter (statuses as of 07/01/2020) Immunizations Name Administration Dates Next Due H1N1 [...] Telephone Encounter - Solange Omer LSW - 07/01/2020 4:25 PM EDT [facility] spoke with pt this date. S: Pt reports she continues to struggle with the of her . Housing has added additionalstress. Pt's name was not on the deed for the house. [employer] has increased monthly payments by a significant amount. Pt has chosen not to remain in her home in [place] [facility] [place], but to relocate to [facility] where her 3 adult sons and providers are located. Pt's dtr-in-law helping to fill out applications for housing [place] [employer] now. Pt receives SSD and [place] pension. O: Phone encounter. A: Pt alert and oriented x3. Affect tearful. Mood anxious and depressed. Denies thoughts of self-harm. Not sleeping. Pt prescribed Zoloft, Ativan and Neurontin by Dr. Lilly. No changes noted yet with increased Zoloft. Discussed grief support. Pt not yet ready for this. Has support of three grown sons. Wants to secure housing first, may consider grief support after that. With consent, spoke with [facility] and of [facility]. Their medical case worker only assist with housing in [facility]. Pt provided with info for Housing Transition's Affordable Housing website page. Also provided with contact info for [facility] ([phone]). P: [facility] will f/u with pt in one week to assess housing needs. Pt has [facility] contact info should needsarise in the interim. PARVEZ Sanchez [facility] Bush Hog Operator [email or web address] [phone] documented in this encounter Plan of Treatment Upcoming Encounters Date Type Specialty Care Team Description 07/02/2020 Anticoagulation Pharmacy [facility] [address] [address] 07/02/2020 Laboratory Laboratory Processing [facility] Lab Processing [address] [place] [address] 07/24/2020 Telemedicine Psychiatry Alisha Lilly, DO [address] [facility] [address] 09/17/2020 Office Visit Family Medicine Roger Alexandra MD [address] [address] [phone] Health Maintenance Due Date Last Done Comments [...] 06/27/2008 *DISCUSS TOBACCO CESSATION (REFER TO SMARTSET #0231) 01/04/2020 *ADVANCE DIRECTIVE NOT ON FILE 03/08/2020 [...] Documents on File Type Date Recorded Patient Slice Cutting Machine Operator Expl 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 Advanced Directive
--- OUTSIDE RECORDS SUMMARY | 2023-07-25 05:13 | External Medical Summary | Summary of Care ---
Author Name Unknown Organization [place] [address] Care Team Providers Care Glass Enamel Mixer Name Role Phone Roger Alexandra MD Primary Care Provider [phone] Reason for Visit * Reason Comments Advice Encounter Details Date Type Department Care Team Description 04/15/2020 Telephone Family Practice [facility] [address] [place] [address] Roger Alexandra MD [address] [facility] [place] [address] [phone] Advice Allergies Active Allergy Reactions Severity Noted Date Comments Aspirin Unknown 12/12/2007 von Willebrand's disease Salicylates 03/01/2000 von Willebrand's disease documented as of this encounter (statuses as of 06/18/2020) Medications Medication Sig Dispensed Refills Start Date [...] 03/05/2020 Active fluticasone (FLOVENT HFA) 110 MCG/ACT inhalerIndications:Br onchitis, complicated Inhale 2 Puffs by mouth 2 times a day. 36 g 3 03/26/2020 Active Albuterol Sulfate (PROAIR HFA) 108 (90 Base) MCG/ACT AERSIndications:Bronc hitis, complicated Inhale 2 Puffs by mouth 4 times a day. 18 g 1 03/26/2020 Active guaiFENesin-codeine (ROBITUSSIN AC) 100-10 MG/5ML syrupIndications:Bron chitis, complicated Take 5 mL by mouth every 4 hours as needed for Cough. 120 mL 0 03/26/2020 Active documented as of this encounter (statuses as of 06/18/2020) Active Problems Problem Noted Date Hemiplegia 06/07/2020 [...] severe 04/06/2007 SIMA (generalized anxiety disorder) 02/08 terminologist current use of anticoagulant t herapy 06/01/2005 Overview: ICD-10 update of inactive term Tobacco use disorder documented as of this encounter (statuses as of 06/18/2020) Resolved Problems Problem Noted Date Resolved Date [...] as of this encounter (statuses as of 06/18/2020) Immunizations Name Administration Dates Next Due H1N1 [...] Telephone Encounter - Susana Velarde CMA - 04/17/2020 11:19 AM EDT Form filled out. Told pt. She will pick it up at front desk clerk check in * Telephone Encounter - Veronica Shepherd OSA - 04/17/2020 8:17 AM EDT I placed form in [facility] mailbox. * Telephone Encounter - Susana Velarde CMA - 04/16/2020 5:40 PM EDT Called pt and asked them to send another copy. * Telephone Encounter - Susana Velarde CMA - 04/16/2020 5:36 PM EDT Where did you put it? I couldn't find it. * Telephone Encounter - Brianna Meyer OSA - 04/16/2020 10:57 AM EDT . * Telephone Encounter - Veronica Shepherd OSA - 04/15/2020 4:35 PM EDT Patient requests their [facility] form to be completed. Form located in providers bin. Patient requests the form to be picked up. When form is completed, please call patient at home * Telephone Encounter - Jennifer Breaux OSA - 04/15/2020 3:56 PM EDT Patient called. She was upset because her yesterday. She was calling because she has paperwork for the the [facility] to be filled out by Dr Alexandra for her, so she can get some additional assistance from the [facility] for herself. Patient's daughter in law, Jasmin Gant will be dropping the forms off. Patient's daughter in law will be picking them up for her also. Please call the patient when they are completed. Thank you. documented in this encounter Plan of Treatment Upcoming Encounters Date Type Specialty Care Team Description 06/18/2020 Laboratory [facility] Lab Processing [address] [place] [address] correction (current) use of anticoagulants* 06/18/2020 Anticoagulation Pharmacy [facility] [address] [address] 09/17/2020 Office Visit Family Medicine Roger Alexandra MD [address] [address] [phone] Health Maintenance Due Date Last Done Comments [...] Documents on File Type Date Recorded Patient Baker Chef Expl 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 Advanced Directive
--- OUTSIDE RECORDS SUMMARY | 2023-07-25 05:13 | External Medical Summary | Summary of Care ---
Author Name Unknown Organization [place] [address] Care Team Providers Care Lace Stripper Name Role Phone Roger Alexandra MD Primary Care Provider [phone] Reason for Visit * Reason Comments Dosage Adjustment Via Phone (anticoag Cl inic) Encounter Details Date Type Department Care Team Description 06/25/2020 Anticoagulation Pharmacy, [facility] [address] [place] [address] [facility] [address] [place] [address] Cerebrovascular disease, arteriosclerotic, post-stroke* Allergies Active Allergy Reactions Severity Noted Date Comments Aspirin Unknown 12/12/2007 von Willebrand's disease Salicylates 03/01/2000 von Willebrand's disease documented as of this encounter (statuses as of 06/25/2020) Medications Medication Sig Dispensed Refills Start Date [...] for Anxiety. 60 Tab 0 06/24/2020 Active documented as of this encounter (statuses as of 06/25/2020) Active Problems Problem Noted Date Hemiplegia 06/07/2020 [...] as of this encounter (statuses as of 06/25/2020) Resolved Problems Problem Noted Date Resolved Date [...] as of this encounter (statuses as of 06/25/2020) Immunizations Name Administration Dates Next Due H1N1 [...] this encounter Progress Notes * Abena Moralez, [facility] - 06/25/2020 3:06 PM EDT Medication Therapy Disease Management - Anticoagulation Patient: Kimberly Kendall : 1960 Current Warfarin Dose As of 06/25/2020 Warfarin maintenance plan: 15 mg (10 mg x 1.5) every Mon, [place]; 10 mg (10 mg x 1) all other days Patient-Reported Symptoms: INR Result As of 06/25/2020 INR goal: 2.0-3.0 INR used for dosing: Warfarin Plan As of 06/25/2020 Full warfarin instructions: 15 mg every Mon, [place]; 10 mg all other days No change documented: Abena Moralez michelle Next INR check: 06/27/2020 Additional Dosing Information: Not obtained from [facility] home phleb today Repeat PT/INR in 2 day(s) Weekly dose: not changed Abena Moralez [facility] Clinical Pharmacist 06/25/2020, 3:06 PM documented in this encounter Plan of Treatment Upcoming Encounters Date Type Specialty Care Team Description 07/24/2020 Telemedicine Psychiatry Alisha Lilly, DO [address] [facility] [place] [address] 09/17/2020 Office Visit Family Medicine Roger Alexandra MD [address] [address] Health Maintenance Due [...] 06/27/2008 *DISCUSS TOBACCO CESSATION (REFER TO SMARTSET #8361) 01/04/2020 *ADVANCE DIRECTIVE NOT ON FILE 03/08/2020 [...] Documents on File Type Date Recorded Patient Button Clamper Expl 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 Advanced Directive
--- OUTSIDE RECORDS SUMMARY | 2023-07-25 05:13 | External Medical Summary | Summary of Care ---
Author Name Unknown Organization [place] [address] Care Team Providers Care Base Draw Operator Name Role Phone Roger Alexandra MD Primary Care Provider [phone] Reason for Visit * Reason Comments Medication Question Encounter Details Date Type Department Care Team Description 06/18/2020 Telephone Pharmacy, [facility] [address] [facility] [place] [address] [facility] [address] [facility] [place] [address] Medication Question Allergies Active Allergy Reactions Severity Noted Date Comments Aspirin Unknown 12/12/2007 von Willebrand's disease Salicylates 03/01/2000 von Willebrand's disease documented as of this encounter (statuses as of 06/19/2020) Medications Medication Sig Dispensed Refills Start Date [...] as of this encounter (statuses as of 06/19/2020) Active Problems Problem Noted Date Hemiplegia 06/07/2020 [...] as of this encounter (statuses as of 06/19/2020) Resolved Problems Problem Noted Date Resolved Date [...] as of this encounter (statuses as of 06/19/2020) Immunizations Name Administration Dates Next Due H1N1 [...] Telephone Encounter - Alisha Lilly DO - 06/19/2020 9:02 AM EDT Thank you for the update!! Alisha * Telephone Encounter - Abena Moralez formerly [facility] - 06/18/2020 4:09 PM EDT Hi , Spoke with Kimberly on the phone today. She states very depressed and needs something for her anxiety.. Very upset on phone with tearful affect. She would appreciate some follow up from your office. Thanks, Abena documented in this encounter Plan of Treatment Upcoming Encounters Date Type Specialty Care Team Description 09/17/2020 Office Visit Family Medicine Roger Alexandra MD [address] [place] [address] [phone] Health Maintenance Due Date Last Done Comments [...] Documents on File Type Date Recorded Patient Soil Conservationist Expl 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 Advanced Directive
--- OUTSIDE RECORDS SUMMARY | 2023-07-25 05:13 | External Medical Summary | Summary of Care ---
Author Name Unknown Organization [place] [address] Care Team Providers Care Airconditioning Plant Operator Name Role Phone Roger Alexandra MD Primary Care Provider [phone] Reason for Visit * Reason Comments Dosage Adjustment Via Phone (anticoag Cl inic) Encounter Details Date Type Department Care Team Description 06/19/2020 Anticoagulation Pharmacy, [facility] [address] [place] [address] [facility] [address] [place] [address] Cerebrovascular disease, arteriosclerotic, post-stroke* Allergies Active Allergy [...] Progress Notes * Abena Moralez RPh - 06/18/2020 4:16 PM EDT I agree with documented plan of care. Abena Moralez, Pharm D Clinical Pharmacist 06/18/2020, 4:16 PM * Erin Pulliam RPh - 06/18/2020 3:56 PM EDT Medication Therapy Disease Management - Anticoagulation Patient: Kimberly Kendall : 1960 Patient Phone Numbers Current Warfarin Dose As of 06/19/2020 Warfarin maintenance plan: 15 mg (10 mg x 1.5) every Mon, [place]; 10 mg (10 mg x 1) all other days Patient-Reported Symptoms: Patient Findings Positives: Missed doses (likely missed yesterday and possibly others in the last week. pt admits tobeing very depressed and unmotivated. Ensured that pt was not going to harm herself and she stated that she would not. ) Negatives: Signs/symptoms of thrombosis, Signs/symptoms of bleeding, Change in health, Change in alcohol use, Change in activity, Upcoming invasive procedure, Extra doses, Change in medications, Change in diet/appetite, Bruising Comments: Pt asked that I reach out to Dr. Lilly to inform her of the patient's current depressed mood. Telephone encounter placed. INR Result As of 06/19/2020 INR goal: 2.0-3.0 INR used for dosin.59! (06/18/2020) Warfarin Plan As of 06/19/2020 Full warfarin instructions: 15 mg every Mon, [place]; 10 mg all other days Next INR check: 06/25/2020 Additional Dosing Information: Given that pt reported missed dose yesterday, instructed pt to take 15 mg today, then return to weekly dosage plan and will follow up in 1 week. Repeat PT/INR in 1 week(s) Weekly dose: not changed Erin Pulliam, PharmD [facility] Audio Narrator Medication Therapy Disease Management 06/18/2020, 4:13 PM documented in this encounter Plan of Treatment Upcoming Encounters Date Type Specialty Care Team Description 09/17/2020 Office Visit Family Medicine Roger Alexandra MD [address] [address] [address] [phone] Health Maintenance Due Date Last Done Comments [...] Documents on File Type Date Recorded Patient Graphics Coordinator Expl 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 Advanced Directive
--- OUTSIDE RECORDS SUMMARY | 2023-07-25 05:13 | External Medical Summary | Summary of Care ---
Author Name Unknown Organization [place] [address] Care Team Providers Care Site Technician Name Role Phone Roger Alexandra MD Primary Care Provider [phone] Reason for Visit * Reason Comments Dosage Adjustment Via Phone (anticoag Cl inic) Encounter Details Date Type Department Care Team Description 06/14/2020 Anticoagulation Pharmacy, [facility] [address] [place] [address] [address] Cerebrovascular disease, arteriosclerotic, post-stroke* Allergies Active Allergy Reactions Severity Noted Date Comments Aspirin Unknown 12/12/2007 von Willebrand's disease Salicylates 03/01/2000 von Willebrand's disease documented as of this encounter (statuses as of 06/14/2020) Medications Medication Sig Dispensed Refills Start Date [...] as of this encounter (statuses as of 06/14/2020) Active Problems Problem Noted Date Hemiplegia 06/07/2020 [...] as of this encounter (statuses as of 06/14/2020) Resolved Problems Problem Noted Date Resolved Date [...] as of this encounter (statuses as of 06/14/2020) Immunizations Name Administration Dates Next Due H1N1 [...] of this encounter Progress Notes * Kim Brooks RPh - 06/14/2020 4:01 PM EDT No results. It appears that mobile phleb was cancelled. Will place orders from home phleb 06/18. Kim Brooks PharmD, [facility] Clinical Pharmacist Chronic Disease Management documented in this encounter Plan of Treatment Upcoming Encounters Date Type Specialty Care Team Description 09/17/2020 Office Visit Family Medicine [place], Roger Edwards MD [address] [address] [phone] Health Maintenance Due Date Last Done Comments [...] Documents on File Type Date Recorded Patient Nurse Substance Abuse Expl 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 Advanced Directive
--- OUTSIDE RECORDS SUMMARY | 2023-07-25 05:13 | External Medical Summary ---
Author Name Unknown Address [address] [place] [address] [place] [address] Organization K1F:[address] [place] [address] Laboratory Report Ordering Provider Test Date Status STEFANI MARINELLI 07/03/2020 12:38:00 Final Observation Date Value Abnormality Reference (Units ) Status PT 07/03/2020 14:03 37.5 Above high normal 11.5- 14.6 (seconds) Final INR 07/03/2020 14:03 3.73 Above high normal 0.84- 1.14 Final Performing Location [address] [place] [address]
--- OUTSIDE RECORDS SUMMARY | 2023-07-25 05:13 | External Medical Summary | Summary of Care ---
Author Name Unknown Organization [place] [address] Care Team Providers Care Early Learning Teacher Name Role Phone Roger Alexandra MD Primary Care Provider [phone] Reason for Visit * Reason Comments case management [facility] Encounter Details Date Type Department Care Team Description 06/24/2020 Food Production Associate Telephone Family Practice [facility] [address] [facility] [place] [address] Cordelia Burns, RN [address] [place] [address] [phone] case management ([facility]) Allergies Active [...] Telephone Encounter - Cordelia Burns RN - 06/24/2020 3:21 PM EDT UTC/No answer. documented in this encounter Plan of Treatment Upcoming Encounters Date Type Specialty Care Team Description 07/24/2020 Telemedicine Psychiatry [facility] Alishatamar Newman, DO [address] [facility] [place] [address] 09/17/2020 Office Visit Family Medicine Roger Alexandra MD [address] [facility] [place] [address] [phone] Health Maintenance Due Date Last Done Comments [...] Documents on File Type Date Recorded Patient Dozer Operator Expl 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 Advanced Directive
--- OUTSIDE RECORDS SUMMARY | 2023-07-25 05:13 | External Medical Summary | Summary of Care ---
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 [...] of this encounter Progress Notes * Alisha Lilly DO - 06/19/2020 9:03 AM EDT Please schedule Kimberly for first available return visit- top of cancellation list if possible given current anxiety symptoms documented in this encounter Plan of Treatment Upcoming Encounters Date Type Specialty Care Team Description 09/17/2020 Office Visit Family Medicine Roger Alexandra MD [address] [place] [address] [phone] Health Maintenance Due Date Last Done Comments [...] on File Type Date Recorded Patient Casing Machine Operator Expl 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 Advanced Directive
--- OUTSIDE RECORDS SUMMARY | 2023-07-25 05:13 | External Medical Summary | Summary of Care ---
Author Name Unknown Organization [place] [address] Care Team Providers Care Cod Clerk Name Role Phone Roger Alexandra MD Primary Care Provider [phone] Reason for Visit * Reason Comments Refinery Operator Assistant Documentation Encounter Details Date Type Department Care Team Description 06/28/2020 Telephone Care Coordination [address] [place] [address] Solange Oemr, [facility] Refinery Operator Assistant Documentation Allergies Active Allergy Reactions Severity Noted Date Comments Aspirin Unknown 12/12/2007 von Willebrand's disease Salicylates 03/01/2000 von Willebrand's disease documented as of this encounter (statuses as of 06/28/2020) Medications Medication Sig Dispensed Refills Start Date [...] as of this encounter (statuses as of 06/28/2020) Active Problems Problem Noted Date Hemiplegia 06/07/2020 [...] as of this encounter (statuses as of 06/28/2020) Resolved Problems Problem Noted Date Resolved Date [...] as of this encounter (statuses as of 06/28/2020) Immunizations Name Administration Dates Next Due H1N1 [...] Telephone Encounter - Solange Omer LSW - 06/28/2020 3:23 PM EDT Pt transferred from [email or web address] No answer. Left voice message. Recent apt with psychiatry noted. [facility] Fountain Roller Assembler [email or web address] [phone] documented in this encounter Plan of Treatment Upcoming Encounters Date Type Specialty Care Team Description 07/02/2020 Anticoagulation Scott Leija [facility] [address] [place] [address] 07/02/2020 Laboratory Laboratory Processing [facility], Lab Processing [address] [facility] [place] [address] 07/24/2020 Telemedicine Psychiatry [facility] Alisha Paty, DO [address] [place] [address] 09/17/2020 Office Visit Family Medicine Roger Alexandra MD 132 [facility] [place] [address] [phone] Health Maintenance Due Date Last Done Comments [...] on File Type Date Recorded Patient Legal Examiner Expl 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 Advanced Directive
--- OUTSIDE RECORDS SUMMARY | 2023-07-25 05:13 | External Medical Summary | Summary of Care ---
Author Name Unknown Organization [place] [address] Care Team Providers Care Apprentice Technician Name Role Phone Roger Alexandra MD Primary Care Provider [phone] Reason for Visit * Reason Comments Other Encounter Details Date Type Department Care Team Description 06/11/2020 Telephone Psychiatry, [place] [address] [place] [address] Alisha Lilly, [address] [place], [place] [id number] Other Allergies Active Allergy Reactions Severity Noted Date Comments Aspirin Unknown 12/12/2007 von Willebrand's disease Salicylates 03/01/2000 von Willebrand's disease documented as of this encounter (statuses as of 06/21/2020) Medications Medication Sig Dispensed Refills Start Date [...] as of this encounter (statuses as of 06/21/2020) Active Problems Problem Noted Date Hemiplegia 06/07/2020 [...] severe 04/06/2007 SIMA (generalized anxiety disorder) 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 * Telephone Encounter - Alisha Lilly DO [...] Visit Family Medicine Roger Alexandra MD [address] [facility] [place] [address] [phone] Health Maintenance Due Date Last Done Comments [...] on File Type Date Recorded Patient Recreation Professor Expl 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 Advanced Directive
--- OUTSIDE RECORDS SUMMARY | 2023-07-25 05:13 | External Medical Summary | Summary of Care ---
Author Name Unknown Organization [place] [address] Care Team Providers Care Breaker Operator Name Role Phone Roger Alexandra MD Primary Care Provider [phone] Reason for Visit * Reason Comments Dosage Adjustment Via Phone (anticoag Cl inic) Encounter Details Date Type Department Care Team Description 06/19/2020 Anticoagulation Pharmacy, [facility] [address] [place] [address] 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 [...] Weekly dose: not changed Erin Pulliam, PharmD [facility] Stone Polisher Hand Medication Therapy Disease Management 06/18/2020, 4:13 PM documented in this encounter Plan of Treatment Upcoming Encounters Date Type Specialty Care Team Description 09/17/2020 Office Visit Family Medicine Roger Alexandra MD [address] [place] [address] [phone] Health Maintenance Due Date Last Done Comments [...] on File Type Date Recorded Patient Chemist Food Expl 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 Advanced Directive
--- OUTSIDE RECORDS SUMMARY | 2023-07-25 05:13 | External Medical Summary | Summary of Care ---
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 [...] maybe she can try to reset her MyG password as we keep missing each other [...] [address] [facility] [place] [address] [phone] 09/17/2020 Office Visit Family Medicine Roger Alexandra MD 132 [facility] [place] [address] Health Maintenance Due Date [...] Documents on File Type Date Recorded Patient R[place]man Expl 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 Advanced Directive
--- OUTSIDE RECORDS SUMMARY | 2023-07-25 05:13 | External Medical Summary | Summary of Care ---
Author Name Unknown Organization [place] [address] Care Team Providers Care Dual Rate Supervisor Name Role Phone Roger Alexandra MD Primary Care Provider [phone] Reason for Visit * Reason Comments Lining Printer Documentation Encounter Details Date Type Department Care Team Description 07/01/2020 Telephone Care Coordination [address] [place] [address] Solange Omer, [facility] Lining Printer Documentation Allergies Active Allergy Reactions Severity Noted [...] Encounter - Solange Omer LSW - 07/01/2020 12:12 PM EDT [facility] spoke with pt briefly as she had visitors at time of call. Pt requesting return call later in the day. [facility] Sap Bw Consultant [email or web address] [phone] documented in this encounter Plan of Treatment Upcoming Encounters Date Type Specialty Care Team Description 07/02/2020 Anticoagulation Pharmacy [facility] [place] [address] 07/02/2020 Laboratory Laboratory Processing [facility], Lab Processing [address] [facility] [place] [address] 07/24/2020 Telemedicine Psychiatry [facility] Alisha Paty, DO [address] [facility] [place] [address] 09/17/2020 Office Visit Family Medicine Roger Alexandra MD 132 [facility] [place] [address] [phone] Health Maintenance Due Date Last Done Comments [...] Documents on File Type Date Recorded Patient Sales/Marketing Expl 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 Advanced Directive
--- OUTSIDE RECORDS SUMMARY | 2023-07-25 05:14 | External Medical Summary | Summary of Care ---
Author Name Unknown Organization [place] [address] Care Team Providers Care Product Support Analyst Name Role Phone Roger Alexandra MD Primary Care Provider [phone] Reason for Visit * Reason Comments Advice Encounter Details Date Type Department Care Team Description 06/07/[address] 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 Pt is unable tocome into the office today or tomorrow, she has no transportation. Video visit scheduled for today. * Telephone Encounter - Brianna Meyer OSA - 06/07/2020 1:15 PM EDT Reason for patient's call: wants to speak with a nurse/sever hip pain to leg Caller was transferred to [facility] at the nurse line. documented in this encounter Plan of Treatment Upcoming Encounters Date Type Specialty Care Team Description 06/07/2020 Laboratory Laboratory Processing [facility], Lab Processing [address] [facility] [address] correction (current) use of anticoagulants* 06/07/2020 Telemedicine Family Medicine Alonso Chávez MD 132 [facility] [place] [address] 06/11/2020 Telemedicine Psychiatry Alisha Lilly DO [address] [place] [address] 06/11/2020 Therapy Psychology Laura Mckinley PsyD [address] [place] [address] 09/17/2020 Office Visit Family Medicine Roger Alexandra MD [address] [facility] [place] [address] Health Maintenance Due [...] Documents on File Type Date Recorded Patient Poultry Veterinarian Expl 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 Advanced Directive
--- OUTSIDE RECORDS SUMMARY | 2023-07-25 05:14 | External Medical Summary | Summary of Care ---
Author Name Unknown Organization [place] [address] Care Team Providers Care Information Architect Name Role Phone Roger Alexandra MD Primary Care Provider [phone] Encounter Details Date Type Department Care Team Description 05/21/2020 Refill Psychiatry, [place] [address] [place] [address] Alisha Lilly, [address] [place] [id number] [phone] Allergies Active Allergy Reactions Severity Noted Date Comments Aspirin Unknown 12/12/2007 von Willebrand's disease Salicylates 03/01/2000 von Willebrand's disease documented as of this encounter (statuses as of 05/22/2020) Medications Medication Sig Dispensed Refills Start Date [...] for Anxiety. 60 Tab 0 05/22/2020 Active LORAzepam (ATIVAN) 0.5 MG Tablet Take 1 Tab by mouth 2 times a day as needed for Anxiety. 60 Tab 0 04/23/2020 0 Discontinue d(Refill) documented as of this encounter (statuses as of 05/22/2020) Active Problems Problem Noted Date Moderate episode [...] as of this encounter (statuses as of 05/22/2020) Resolved Problems Problem Noted Date Resolved Date [...] as of this encounter (statuses as of 05/22/2020) Immunizations Name Administration Dates Next Due H1N1 [...] have Coronavirus / COVID-19? Unable to assess 05/16/2020 12:11 AM EDT documented as of this encounter Miscellaneous Notes * Telephone Encounter - Alisha Lilly DO - 05/22/2020 8:32 AM EDT Signed Prescriptions: Disp Refills LORAzepam (ATIVAN) 0.5 MG Tablet 60 Tab 0 Sig: Take 1 Tab by mouth 2 times a day as needed for Anxiety. Authorizing Provider: ALISHA LILLY * Telephone Encounter - Jasmin Nevarez OSA - 05/21/2020 4:16 PM EDT Pharmacy requesting refill on Lorazepam. Patient last seen on 04/23/20 with return appointment scheduled for 06/11/20. Patient had 0 cancelled appointments and 0 NO SHOW appointments. Medication was last filled on 04/23/20 with 0 refills. documented in this encounter Plan of Treatment Upcoming Encounters Date Type Specialty Care Team Description 05/23/2020 Laboratory Laboratory Processing [place], Lab Processing Mobile [address] [place] [address] 05/23/2020 Anticoagulation Pharmacy [address] [address] 06/11/2020 Telemedicine Psychiatry Alisha Lilly DO [address] [place] [address] 06/11/2020 Therapy Psychology Laura Mckinley PsyD [address] [place] [address] 09/17/2020 Office Visit Family Medicine Roger Alexandra MD [address] [place] [address] [phone] Health Maintenance Due Date Last Done Comments [...] Documents on File Type Date Recorded Patient Buildings Painter Expl 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 Advanced Directive
--- OUTSIDE RECORDS SUMMARY | 2023-07-25 05:14 | External Medical Summary ---
Author Name Unknown Address [address] [place] [address] [place] [address] Organization K1F:[address] [place] [address] Laboratory Report Ordering Provider Test Date Status STEFANI MARINELLI 06/07/2020 11:15:00 Final Observation Date Value Abnormality Reference (Units ) Status PT 06/07/2020 15:28 33.7 Above high normal 11.5- 14.6 (seconds) Final INR 06/07/2020 15:28 3.26 Above high normal 0.84- 1.14 Final Performing Location [address] [place] [address]
--- OUTSIDE RECORDS SUMMARY | 2023-07-25 05:14 | External Medical Summary | Summary of Care ---
Author Name Unknown Organization [place] [address] Care Team Providers Care Elastic Attacher Zigzag Name Role Phone Roger Alexandra MD Primary Care Provider [phone] Reason for Visit * Reason Comments Dosage Adjustment Via Phone (anticoag Cl inic) Encounter Details Date Type Department Care Team Description 05/13/2020 Anticoagulation Pharmacy, [facility] [address] [place] [address] [facility] [address] [place] [address] Cerebrovascular disease, arteriosclerotic, post-stroke* Allergies Active Allergy Reactions Severity Noted Date Comments Aspirin Unknown 12/12/2007 von Willebrand's disease Salicylates 03/01/2000 von Willebrand's disease documented as of this encounter (statuses as of 05/13/2020) Medications Medication Sig Dispensed Refills Start Date End Date Status OXYGEN 4 L during the day as needed and at bedtime 0 02/14/2015 Active albuterol-ipratr opium (DUONEB) 2.5-0.5 MG/3ML nebulizer [...] 03/05/2020 Active fluticasone (FLOVENT HFA) 110 MCG/ACT inhalerIndicatio ns:Bronchitis, complicated Inhale 2 Puffs by mouth 2 times a day. 36 g 3 03/26/2020 Active Albuterol Sulfate (PROAIR HFA) 108 (90 Base) MCG/ACT AERSIndications: Bronchitis, complicated Inhale 2 Puffs by mouth 4 times a day. 18 g 1 03/26/2020 Active guaiFENesin-code ine (ROBITUSSIN AC) 100-10 MG/5ML syrupIndications :Bronchitis, complicated Take 5 mL by mouth every 4 hours as needed for Cough. 120 mL 0 03/26/2020 Active mirtazapine (REMERON) 15 MG Tablet Take 1 Tab by mouth at bedtime. 30 Tab 2 04/10/2020 Active LORAzepam (ATIVAN) 0.5 MG Tablet Take 1 Tab by mouth 2 times a day as needed for Anxiety. 60 Tab 0 04/23/2020 Active warfarin sodium (COUMADIN) 10 MG Tablet Take 2 tablets on Wednesday and Wednesday, and 1.5 tablets all other days or as directed by anticoagulation pharmacist. 60 Tab 2 05/13/2020 Active warfarin sodium (COUMADIN) 5 MG Tablet Take 1-2 Tabs by mouth daily. Take as directed by anticoagulation pharmacist. 60 Tab 5 12/29/2019 05/13/20 20 Discontinued documented as of this encounter (statuses as of 05/13/2020) Active Problems Problem Noted Date Moderate episode [...] as of this encounter (statuses as of 05/13/2020) Resolved Problems Problem Noted Date Resolved Date [...] Per Obesity Taxonomy Irritable bowel syndrome 04/13/2001 02/14/2 020 Depression with anxiety 03/05/20 20 EXT ASTHMA W-O STAT ASTH 010 documented as of this encounter (statuses as of 05/13/2020) Immunizations Name Administration Dates Next Due H1N1 [...] have Coronavirus / COVID-19? Unable to assess 04/16/2020 1:13 AM EDT documented as of this encounter Progress Notes * Sakina Conti [facility] - 05/13/2020 2:33 PM EDT Medication Therapy Disease Management - Anticoagulation Patient: Kimberly Abhilash Kendall : 1960 Contacts Type Contact Phone 05/13/2020 02:35 PM Phone (Outgoing) Kimberly Kendall (Self) [phone] (H) Spoke to Patient Current Warfarin Dose As of 05/13/2020 Warfarin maintenance plan: 20 mg (5 mg x 4) every Mon, Fri; 15 mg (5 mg x 3) all other days Patient-Reported Symptoms: Patient Findings Positives: Missed doses (pt self adjusted doses, took signficantly lower doses than recommended) Negatives: Signs/symptoms of thrombosis, Signs/symptoms of bleeding, Change in health, Change in alcohol use, Change in activity, Upcoming invasive procedure, Extra doses, Change in medications, Change in diet/appetite, Bruising INR Result As of 05/13/2020 INR goal: 2.0-3.0 INR used for dosin.23! (05/13/2020) Warfarin Plan As of 05/13/2020 Full warfarin instructions: 05/13: 10 mg; 05/14: 20 mg; 05/15: 20 mg; Otherwise 20 mg every Wed, Wed; 15 mg all other days Next INR check: 05/16/2020 Additional Dosing Information: *switched to 10 mg tablets* Pt said she does not feel comfortable taking 4 tablets at a time to get dose so she cuts the recommended dose down. Discussed importance of taking recommended dose and concerns of subtherapeutic INR.Pt said she would feel more comfortable switching to 10 mg tablet so only has to take up to 2 tablets per dose. Sent Rx. Repeat PT/INR in 3 day(s) Weekly dose: not changed Sakina Conti RPh Clinical Pharmacist 05/13/2020, 2:33 PM documented in this encounter Plan of Treatment Upcoming Encounters Date Type Specialty Care Team Description 05/16/2020 Anticoagulation Pharmacy [facility] [address] [place] [address] 06/11/2020 Telemedicine Psychiatry Alisha Lilly DO [address] [place] [address] 06/11/2020 Therapy Psychology Laura Mckinley PsyD [address] [place] [address] 09/17/2020 Office Visit Family Medicine Roger Alexandra MD [address] [place] [address] [phone] Health Maintenance Due Date Last Done Comments [...] ON FILE 03/08/2020 Influenza Vaccine (FLU shot) (Season Ended) 2020 08/21/2015, 08/01/2014, 08/09/2013, Additional history exists [...] Documents on File Type Date Recorded Patient Batch Weigher Expl 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 Advanced Directive
--- OUTSIDE RECORDS SUMMARY | 2023-07-25 05:14 | External Medical Summary ---
Author Name Unknown Address 132 [facility] [place] [address] Phone Organization K0G[place] [place] [employer] [address] [facility] [place] [address] Laboratory Report Ordering Provider Test Date Status MAGALY GRANT 05/20/2020 11:05:00 Final Observation Date Value Abnormality Reference (Units ) Status PT 05/20/2020 13:42 24.4 Above high normal 11.5- 14.6 (seconds) Final INR 05/20/2020 13:42 2.17 Above high normal 0.84- 1.14 Final Performing Location [facility] [place] [employer] [address] [place] [address]
--- OUTSIDE RECORDS SUMMARY | 2023-07-25 05:14 | External Medical Summary ---
Author Name Unknown Address 132 [facility] [place] [address] Phone Organization K0G:[facility] [place] [employer] [address] [facility] [place] [address] Laboratory Report Ordering Provider Test Date Status TSEFANI MARINELLI 05/23/2020 10:30:00 Final Observation Date Value Abnormality Reference (Units ) Status PT 05/23/2020 14:51 26.3 Above high normal 11.5- 14.6 (seconds) Final INR 05/23/2020 14:51 2.38 Above high normal 0.84- 1.14 Final Performing Location [facility] [email or web address] [address] [place] [address]
--- OUTSIDE RECORDS SUMMARY | 2023-07-25 05:14 | External Medical Summary | Summary of Care ---
Author Name Unknown Organization [place] [address] [address] Care [address] Change Roof Bolter Name Role Phone Roger Alexandra MD Primary Care Provider [phone] [phone] Reason for Visit * Reason Comments Dosage Adjustment Via Phone (anticoag Cl inic) Encounter Details Date Type Department Care Team Description 05/30/2020 Anticoagulation Pharmacy, [facility] [address] [place] [address] [facility] [address] [place] [address] Cerebrovascular disease, arteriosclerotic, post-stroke* Allergies Active Allergy Reactions Severity Noted Date Comments Aspirin Unknown 12/12/2007 von Willebrand's disease Salicylates 03/01/2000 von Willebrand's disease documented as of this encounter (statuses as of 05/30/2020) Medications Medication Sig Dispensed Refills Start Date [...] for Anxiety. 60 Tab 0 05/22/2020 Active documented as of this encounter (statuses as of 05/30/2020) Active Problems Problem Noted Date Moderate episode [...] as of this encounter (statuses as of 05/30/2020) Resolved Problems Problem Noted Date Resolved Date [...] as of this encounter (statuses as of 05/30/2020) Immunizations Name Administration Dates Next Due H1N1 [...] have Coronavirus / COVID-19? Unable to assess 05/29/2020 6:44 AM EDT documented as of this encounter Progress Notes * Abena Moralez, [facility] - 05/30/2020 4:21 PM EDT Medication Therapy Disease Management - Anticoagulation Patient: Kimberly Abhilash Kendall : 1960 Contacts Type Contact Phone 05/30/2020 04:19 PM Phone (Outgoing) Kimberly Kendall (Self) [phone] (H) Current Warfarin Dose As of 05/30/2020 Warfarin maintenance plan: 20 mg (10 mg x 2) every Mon, Christiana; 15 mg (10 mg x 1.5) all other days Patient-Reported Symptoms: Patient Findings Negatives: Signs/symptoms of thrombosis, Signs/symptoms of bleeding, Change in health, Change in alcohol use, Change in activity, Upcoming invasive procedure, Missed doses, Extra doses, Change in medications, Change in diet/appetite, Bruising INR Result As of 05/30/2020 INR goal: 2.0-3.0 INR used for dosin.66! (05/30/2020) Warfarin Plan As of 05/30/2020 Full warfarin instructions: 05/30: 20 mg; Otherwise 20 mg every Mon, Christiana; 15 mg all other days Next INR check: 06/06/2020 Additional Dosing Information: Description 5mg SuTuTh, 7.5mg all other days (5mg tabs-takes in AM) Repeat PT/INR in 1 week(s) Weekly dose: increased Abena Moralez [facility] Clinical Pharmacist 05/30/2020, 4:21 PM documented in this encounter Plan of Treatment Upcoming Encounters Date Type Specialty Care Team Description 06/11/2020 Telemedicine Psychiatry Alisha Lilly DO [address] [place] [address] 06/11/2020 Therapy Psychology Laura Mckinley PsyD [address] [place] [address] 09/17/2020 Office Visit Family Medicine Roger Alexandra MD 132 [place] [address] [phone] Health Maintenance Due Date Last Done Comments [...] Documents on File Type Date Recorded Patient Optometric Technologist Expl 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 Advanced Directive
--- OUTSIDE RECORDS SUMMARY | 2023-07-25 05:14 | External Medical Summary | Summary of Care ---
Author Name Unknown Organization [place] [address] Care Team Providers Care Rn Sane Name Role Phone Roger Alexandra MD Primary Care Provider [phone] Reason for Visit * Reason Comments Other Encounter Details Date Type Department Care Team Description 06/06/2020 Telephone Psychiatry, [place] [address] [place] [address] Alisha Lilly, [address], [place] [id number] Other Allergies Active Allergy Reactions Severity Noted Date Comments Aspirin Unknown 12/12/2007 von Willebrand's disease Salicylates 03/01/2000 von Willebrand's disease documented as of this encounter (statuses as of 06/06/2020) Medications Medication Sig Dispensed Refills Start Date [...] as of this encounter (statuses as of 06/06/2020) Active Problems Problem Noted Date Moderate episode [...] as of this encounter (statuses as of 06/06/2020) Resolved Problems Problem Noted Date Resolved Date [...] as of this encounter (statuses as of 06/06/2020) Immunizations Name Administration Dates Next Due H1N1 [...] Telephone Encounter - Alisha Lilly DO - 06/06/2020 12:59 PM EDT Called Kimberly. She was not available. Left a message stating that those symptoms are not typical of the medication she is being prescribed. Would R/O any illness that could be going around. We do have an appointment 06/11. I did encourage her to go to the local ER if she is having any safety concerns or suicidal ideation. * Telephone Encounter - Renata Quintana, [facility] - 06/06/2020 12:01 PM EDT Patient requesting a call back. Patient stated that she is not feeling well. She is constantly shaking like she is freezing. Seem to have lost her memory - she does not remember doing things. Asked if you think it maybe the medication. Please advise. * Telephone Encounter - Shavonne Queen OSA - 06/06/2020 11:54 AM EDT Pt called requesting to speak with a nurse in Dr Lilly's office. Call transferred to psychiatry in [place]. documented in this encounter Plan of Treatment Upcoming Encounters Date Type Specialty Care Team Description 06/07/2020 Laboratory Laboratory Processing [facility], [facility] Processing [address] [facility] [place] [address] 06/11/2020 Telemedicine Psychiatry Alisha Lilly DO [address] [place] [address] 06/11/2020 Therapy Psychology Laura Mckinley PsyD [address] [place] [address] 09/17/2020 Office Visit Family Medicine Roger Alexandra MD [address] [facility] [place] [address] Health Maintenance Due Date Last Done [...] Documents on File Type Date Recorded Patient Flue Blower Expl 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 Advanced Directive
--- OUTSIDE RECORDS SUMMARY | 2023-07-25 05:14 | External Medical Summary | Summary of Care ---
Author Name Unknown Organization [place] [address] Care Team Providers Care Human Machine Interface Engineer Name Role Phone Roger Alexandra MD Primary Care Provider [phone] Reason for Visit * Reason Comments Dosage Adjustment Via Phone (anticoag Cl inic) Encounter Details Date Type Department Care Team Description 05/13/2020 Anticoagulation Pharmacy, [facility] [address] [place] [address] [facility] [address] [place] [address] Cerebrovascular disease, arteriosclerotic, post-stroke* Allergies Active Allergy [...] this encounter Progress Notes * Sakina Conti [facility] - 05/13/2020 2:33 PM EDT Medication Therapy Disease Management - Anticoagulation Patient: Kimberly Abhilash Kendall : 1960 Contacts Type Contact Phone 05/13/2020 02:35 PM Phone (Outgoing) Kimberly Kendall (Self) [phone] (H) Spoke to Patient Current Warfarin Dose [...] Specialty Care Team Description 05/16/2020 Anticoagulation Pharmacy [facility] [address] [place] [address] 06/11/2020 Telemedicine Psychiatry Alisha Lilly DO [address] [place] [address] 06/11/2020 Therapy Psychology Laura Mckinley PsyD [address] [place] [address] 09/17/2020 Office Visit Family Medicine Roger Alexandra MD [address] [place] [address] [phone] Health Maintenance Due Date Last Done Comments [...] Documents on File Type Date Recorded Patient Junior Graphic Designer Expl 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 Advanced Directive
--- OUTSIDE RECORDS SUMMARY | 2023-07-25 05:14 | External Medical Summary | Summary of Care ---
Author Name Unknown Organization [facility] [address] Care Team Providers Care Pastry Cook Name Role Phone Roger Alexandra MD Primary Care Provider [phone] Encounter Details Date Type Department Care Team Description 06/07/2020 Telemedicine Family [facility] 132 [facility] [place] [id number] Alonso Chávez MD 132 [facility] [place] [address] [phone] Hip pain, left*; Hemiplegia (HCC); Chronic low back pain, unspecified back pain laterality, unspecified whether sciatica present Allergies Active Allergy Reactions Severity Noted Date [...] of 06/07/2020) Active Problems Problem Noted Date Hemiplegia 06/07/2020 [...] as of this encounter Progress Notes * Alonso Chávez MD - 06/07/2020 4:07 PM EDT After connecting through [employer], patient was verified with two unique identifiers. Patient (or authorized legal administrative representative) was then informed that this was a Telemedicine visit and that the exam was being conducted confidentially over secure lines. My office door was closed. No one else was in the room with me. Patient acknowledged consent and understanding of privacy and security of the Telemedicine visit, and gave permission to have a telemedicine presenter stay in the room in order toassist with the history and to conduct the exam as needed. I informed the patient that I have reviewed their record in [facility] and presented the opportunity for them to ask any questions regarding the visit today. The patient agreed to participate. Pt c/o left hip pain for years. Hx arthritis & neuropathy. Has been taking APAP 3 tab up to TID. Unsure exact dose. Pt states she is taking gabapentin still but this has not been recently renewed by us. states 04/14/2020 Reviewed chart--was dismissed by pain managent in past. No recent imaging. HandP Gen-NAD Exam deferred A/P (M25.552) Hip pain, left (primary encounter diagnosis) Plan: XR HIP BILAT MIN 5 VIEWS INCLUDING AP OF PELVIS Discussed max APAP 1000mg TID, more than that risks liver damage/failure/ Avoid nsaids w/hx warfarin use, but could consider w/MTM -avoid narcotics w/prior hx (G81.90) Hemiplegia (HCC) Plan: f/u pcp (M54.5, G89.29) Chronic low back pain, unspecified back pain laterality, unspecified whether sciatica present Plan: XR L SPINE COMPLETE W BENDING 6 VIEWS Will get new imaging, consider interventional pain, radiology ortho etc based on results. Cc: PCP documented in this encounter Plan of Treatment Upcoming Encounters Date Type Specialty Care Team Description 06/11/2020 Telemedicine Psychiatry Alisha Lilly, [address] [place] [address] 06/11/2020 Therapy Psychology Laura Mckinley PsyD [address] [place] [address] 06/14/2020 Anticoagulation Pharmacy [facility] 132 [place] [address] 09/17/2020 Office Visit Family Medicine Roger Alexandra MD [address] [place] [address] [phone] Scheduled Orders Name Type Priority Associated Diagnoses Orde r Schedule XR HIP BILAT MIN 5 VIEWS INCLUDING AP OF PELVIS Medical Imaging STAT Hip pain, left Expected: 06/14/2020, Expires: 06/07/2021 XR L SPINE COMPLETE W BENDING 6 VIEWS Medical Imaging STAT Chronic low back pain, unspecified back pain laterality, unspecified whether sciatica present Expected: 06/14/2020, Expires: 06/07/2021 Health Maintenance Due Date Last Done Comments [...] as of this encounter Visit Diagnoses Diagnosis Hip pain, left- Primary Pain in joint, pelvic region and thigh Hemiplegia (HCC) Hemiplegia, unspecified, affecting unspecified side Chronic low back pain, unspecified back pain laterality, unspecified whether sciatica present documented in this encounter Advance Directives Documents on File Type Date Recorded Patient Lunch Truck Driver Expl 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 Advanced Directive
--- OUTSIDE RECORDS SUMMARY | 2023-07-25 05:14 | External Medical Summary | Summary of Care ---
Author Name Unknown Organization [place] [address] Care Team Providers Care Partner Manager Name Role Phone Roger Alexandra MD Primary Care Provider [phone] [phone] Reason for Visit * Reason Comments Dosage Adjustment Via Phone (anticoag Cl inic) Encounter Details Date Type Department Care Team Description 05/23/2020 Anticoagulation Pharmacy, [facility] [address] [place] [address] [facility] [address] [address] Cerebrovascular disease, arteriosclerotic, post-stroke*; Anticoagulation management encounter; intermediate card tender current use of anticoagulant therapy Allergies Active Allergy Reactions Severity Noted Date Comments Aspirin Unknown 12/12/2007 von Willebrand's disease Salicylates 03/01/2000 von Willebrand's disease documented as of this encounter (statuses as of 05/23/2020) Medications Medication Sig Dispensed Refills Start Date [...] as of this encounter (statuses as of 05/23/2020) Active Problems Problem Noted Date Moderate episode [...] as of this encounter (statuses as of 05/23/2020) Resolved Problems Problem Noted Date Resolved Date [...] as of this encounter (statuses as of 05/23/2020) Immunizations Name Administration Dates Next Due H1N1 [...] this encounter Progress Notes * Abena Moralez, [facility] - 05/23/2020 3:02 PM EDT Medication Therapy Disease Management - Anticoagulation Patient: Kimberly Kendall : 1960 Current Warfarin Dose As of 05/23/2020 Warfarin maintenance plan: 15 mg (10 mg x 1.5) every day Patient-Reported Symptoms: INR Result As of 05/23/2020 INR goal: 2.0-3.0 INR used for dosin.38 (05/23/2020) Warfarin Plan As of 05/23/2020 Full warfarin instructions: 05/24: 15 mg; Otherwise 15 mg every day Next INR check: 05/30/2020 Additional Dosing Information: Description 5mg SuTuTh, 7.5mg all other days (5mg tabs-takes in AM) Repeat PT/INR in 1 week(s) Weekly dose: not changed Abena Moralez [facility] Clinical Pharmacist 05/23/2020, 3:02 PM documented in this encounter Plan of Treatment Upcoming Encounters Date Type Specialty Care Team Description 05/30/2020 Anticoagulation Pharmacy [facility] [address] [place] [address] 06/11/2020 Telemedicine Psychiatry Alisha Lilly, [address] [place] [address] 06/11/2020 Therapy Psychology Laura Mckinley, SlyyD [address] [place] [address] 09/17/2020 Office Visit Family Medicine Roger Alexandra MD [address] [facility] [address] [phone] Scheduled Orders Name Type Priority Associated Diagnoses Orde r Schedule PT/INR Lab Routine Cerebrovascular disease, arteriosclerotic, post-stroke Anticoagulation management encounter [facility] current use of anticoagulant therapy 26 Occurrences starting 05/23/2020 until 05/23/2021 INR [facility]INGERSTICK Lab STAT Cerebrovascular disease, arteriosclerotic, post-stroke Anticoagulation management encounter intermediate card tender current use of anticoagulant therapy Every 2 Weeks for 26 Occurrences starting 05/23/2020 until 05/23/2021 Health Maintenance Due Date Last Done Comments [...] Cerebrovascular disease, arteriosclerotic, post-stroke- Primary Cerebral atherosclerosis Anticoagulation management encounter Encounter for therapeutic drug monitoring intermediate card tender current use of anticoagulant therapy documented in this encounter Advance Directives Documents on File Type Date Recorded Patient Printing Pressman Expl 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 Advanced Directive
--- OUTSIDE RECORDS SUMMARY | 2023-07-25 05:14 | External Medical Summary | Summary of Care ---
Author Name Unknown Organization [place] [address] Care Team Providers Care Frame Cleaner Name Role Phone Roger Alexandra MD Primary Care Provider [phone] Reason for Visit * Reason Comments Medication Question Encounter Details Date Type Department Care Team Description 04/09/2020 Telephone Pharmacy, [facility] 132 [facility] [place] [address] [facility] [place] [address] Medication Question Allergies Active [...] Telephone Encounter - Cordelia Burns RN - 04/10/2020 10:46 AM EDT CM will follow up with patient. * Telephone Encounter - Roger Alexandra MD - 04/09/2020 4:50 PM EDT Nursing, please forward to case management to see if eligible. * Telephone Encounter - Abena Moralez RPh - 04/09/2020 4:00 PM EDT Hello, Patient is very overwhelemed at this time, states is home with terminal cancer with 14 daysto live. States she is not doing well taking care of herself or taking her pills. Wondering if she would be eligible for case management or [facility]? Please advise. Thank you, Abena documented in this encounter Plan of Treatment Upcoming Encounters Date Type Specialty Care Team Description 05/30/2020 Anticoagulation Pharmacy [facility] 132 [facility] [place] [address] 06/11/2020 Telemedicine Psychiatry Alisha Lilly, [address] [place] [address] 06/11/2020 Therapy Psychology Elías Laura, SlyyD [address] [place] [address] 09/17/2020 Office Visit Family Medicine Roger Alexandra MD 132 [facility] [place] [address] [phone] Health Maintenance Due Date Last Done Comments [...] Documents on File Type Date Recorded Patient Stock Broker Expl 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 Advanced Directive
--- OUTSIDE RECORDS SUMMARY | 2023-07-25 05:14 | External Medical Summary ---
Author Name Unknown Address 132 [facility] [place] [address] Phone Organization [facility] [employer] [address] [facility] [place] [address] Laboratory Report Ordering Provider Test Date Status MAGALY GRANT 05/16/2020 07:55:00 Final Observation Date Value Abnormality Reference (Units ) Status PT 05/16/2020 13:05 34.6 Above high normal 11.5- 14.6 (seconds) Final INR 05/16/2020 13:05 3.37 Above high normal 0.84- 1.14 Final Performing Location [facility] [employer] [address] [place] [address]
--- OUTSIDE RECORDS SUMMARY | 2023-07-25 05:14 | External Medical Summary | Summary of Care ---
Author Name Unknown Organization [place] [address] Care Team Providers Care Construction Project Mgr Name Role Phone Roger Alexandra MD Primary Care Provider [phone] [phone] Reason for Visit * Reason Comments Other Encounter Details Date Type Department Care Team Description 06/06/2020 Telephone Psychiatry, [place] [address] [place] [address] lAisha Lilly, [address] [place], [place] [id number] Other Allergies Active Allergy Reactions Severity Noted [...] Miscellaneous Notes * Telephone Encounter - Kenya Mahmood OSA - 06/07/2020 11:31 AM EDT Pt is on the schedule for noon today. * Telephone Encounter - Alisha Lilly DO - 06/07/2020 8:49 AM EDT Please see if she would be available to meet today. It looks like I have an opening at 12:00 * Telephone Encounter - Kimberly Hernandez OSA - 06/06/2020 2:26 PM EDT Pt called again and she said that she is having issues with losing memory, she is nervous and having panic attacks and can't concentrate. She wanted to just speak with you today. She is aware she hasthe appt with you next . Call her on the house phone at [phone]. * Telephone Encounter - Alisha Lilly DO [...] suicidal ideation. * Telephone Encounter - Renata Quintana OSA - 06/06/2020 12:01 PM EDT Patient requesting [...] Lilly's office. Call transferred to psychiatry in [place]. documented in this encounter Plan of Treatment Upcoming Encounters Date Type Specialty Care Team Description 06/07/2020 Laboratory Laboratory Processing [facility], Lab Processing [address] [facility] [place] [id number] detention (current) use of anticoagulants* 06/07/2020 Telemedicine Psychiatry [facility] [address] [facility] [place] [address] 06/07/2020 Anticoagulation Pharm[address] [place] [address] 06/11/2020 Telemedicine Psychiatry Alisha Lilly DO [address] [place] [address] [phone] 06/11/2020 Therapy Psychology Laura Mckinley PsyD [address] [place] [address] 09/17/2020 Office Visit Family Medicine Roger Alexandra MD 132 [facility] [place] [address] Health Maintenance Due [...] Documents on File Type Date Recorded Patient Customer Experience Analyst Expl 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 Advanced Directive
--- OUTSIDE RECORDS SUMMARY | 2023-07-25 05:14 | External Medical Summary | Summary of Care ---
Author Name Unknown Organization [place] [address] Care Team Providers Care Elevator Tender Name Role Phone Roger Alexandra MD Primary Care Provider [phone] Reason for Visit * Reason Comments Dosage Adjustment Via Phone (anticoag Cl inic) Encounter Details Date Type Department Care Team Description 05/20/2020 Anticoagulation Pharmacy, [facility] [address] [place] [address] [facility] [address] [place] [address] Cerebrovascular disease, arteriosclerotic, post-stroke* Allergies Active Allergy Reactions Severity Noted Date Comments Aspirin Unknown 12/12/2007 von Willebrand's disease Salicylates 03/01/2000 von Willebrand's disease documented as of this encounter (statuses as of 05/20/2020) Medications Medication Sig Dispensed Refills Start Date [...] for Cough. 120 mL 0 03/26/2020 Active LORAzepam (ATIVAN) 0.5 MG Tablet Take [...] at bedtime. 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 anticoagulant t herapy 06/01/2005 Overview: ICD-10 update of inactive term Tobacco use disorder documented as of this encounter (statuses as of 05/20/2020) Resolved Problems Problem Noted Date Resolved Date [...] as of this encounter (statuses as of 05/20/2020) Immunizations Name Administration Dates Next Due H1N1 [...] this encounter Progress Notes * Abena Moralez, [facility] - 05/20/2020 4:20 PM EDT Medication Therapy Disease Management - Anticoagulation Patient: Kimberly Abhilash Kendall : 1960 Contacts Type Contact Phone 05/20/2020 04:20 PM Phone (Outgoing) Kimberly Kendall (Self) [phone] (H) Current Warfarin Dose As of 05/20/2020 Warfarin maintenance plan: 20 mg (10 mg x 2) every Mon, Fri; 15 mg (10 mg x 1.5) all other days Patient-Reported Symptoms: INR Result As of 05/20/2020 INR goal: 2.0-3.0 INR used for dosin.17 (05/20/2020) Warfarin Plan As of 05/20/2020 Full warfarin instructions: 05/20: 15 mg; 05/24: 15 mg; Otherwise 20 mg every Mon, Fri; 15 mg all other days Next INR check: 05/30/2020 Additional Dosing Information: Description 5mg SuTuTh, 7.5mg all other days (5mg tabs-takes in AM) Repeat PT/INR in 3 day(s) Weekly dose: not changed Abena Moralez [facility] Clinical Pharmacist 05/20/2020, 4:20 PM documented in this encounter Plan of Treatment Upcoming Encounters Date Type Specialty Care Team Description 06/11/2020 Telemedicine Psychiatry Alisha Lilly, [address] [place] [address] 06/11/2020 Therapy Psychology Laura Mckinley PsyD [address] [place] [address] 09/17/2020 Office Visit Family Medicine [...] 06/27/2008 *DISCUSS TOBACCO CESSATION (REFER TO SMARTSET #7331) 01/04/2020 *ADVANCE DIRECTIVE NOT ON FILE 03/08/2020 [...] on File Type Date Recorded Patient Summer Associate Expl 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 Advanced Directive
--- OUTSIDE RECORDS SUMMARY | 2023-07-25 05:14 | External Medical Summary | Summary of Care ---
Author Name Unknown Organization [place] [address] Care Team Providers Care Plant Controller Name Role Phone Roger Alexandra MD Primary Care Provider [phone] Reason for Visit * Reason Comments Anxiety Depression Encounter Details Date Type Department Care Team Description 06/07/2020 [facility] Psychiatry, [facility] [address] [facility] [place] [address] Alisha Lilly, DO [address] [place] [address] Major depressive disorder, recurrent episode, moderate (HCC)*; Generalized anxiety disorder; PTSD (post-traumatic stress disorder) Allergies Active Allergy [...] encounter Progress Notes * Alisha Lilly, - 06/07/2020 12:00 PM EDT After connecting through [email or web address], patient was verified with two unique identifiers. Patient (or authorized legal authorization representative) was then informed that this was [...] patient thatI have reviewed their record in [facility] and presented the opportunity for them to ask any questions reg arding the visit today. The patient agreed to participate. Patient was seen via a televisit given the current COVID 19 pandemic. Visit converted to telephone visit PSYCHOTHERAPY & MEDICATION MANAGEMENT RETURN VISIT NOTE Psychiatry, [facility] [address] [facility] [place] [address] 06/07/2020 Kimberly Kendall CHIEF COMPLAINT: depression and anxiety INTERVAL HISTORY: Kimberly states that she has not been sleeping well. She sleeps in 3 hour spurts.She states that she has been feeling very depressed over her dying. Kimberly reports a significant increase in her anxiety. She is very worried lately about everything. Kimberly states that she has been shaking more often. She denies any acute stressors, on top of her 's passing, that have worsened her anxiety. Kimberly is living with her granddaughter and her granddaughter's boyfriend. Her dog just had puppies last night. Kimberly is upset about having puppies in the house. They are taking care of the puppies. Kimberly has been having a hard time remembering things. Kimberly has been taking Ativan 0.5 mg BID. She has been taking Hydroxyzine 50 mg TID for her anxiety. She denies feeling tired throughout the day. She continues to take the Remeron at night. She is not currently seeing a therapist. She has been talking to her cake decorator, and the caregivers that she has with her. Kimberly states that the caregivers have been coming 32 hours/week. Previous medication trials of Prozac, Effexor, Seroquel, Cymbalta, Lexapro, Topamax, Remeron, Hydroxyzine or Ativan. Kimberly is uncertain if she has tried Zoloft in the past. Kimberly is not interested in inpatient psychiatric admission at this time. She adamantly denies suicidal ideation/plan/intent. She denies HI/AVH. No [...] Current Outpatient Medications Medication Sig Dispense Refill LORAzepam (ATIVAN) 0.5 MG Tablet Take 1 Tab by mouth 2 times a day as needed for Anxiety. 60 Tab 0 Mirtazapine (REMERON) 30 MG Tablet [...] 6oz of liquid . 210 g 3 hydrOXYzine HCl 50 MG Tablet Take 1 Tab by mouth 3 times a day as needed for Anxiety. 60 Tab 3 Acetaminophen (TYLENOL) 325 MG CAPS Take [...] Can take Ativan 0.5 mg BID PRN for . Discussed trying to not utilize this over Hydroxyzine and use this just as emergency rescue -Continue Remeron 30 mg QHS to help with insomnia, depression and low appetite. - Start Zoloft 25 mg daily for depression and anxiety. Increase to 50 mg after 1 week. Discussed side effects. Will give small supply of Zofran in case she experiences nausea with it for the first few days-- which she has experienced with SSRI in past. - Strongly recommend therapy-therapy referral placed - No reported side effects to current medications - Crisis planning-- Kimberly Kendall has been provided with Psychiatry emergency telephone numbers, including crisis number, text suicide hotline and suicide hotline. The crisis plan was reviewedand updated if necessary based on the information above. Return 1 week Risk/Benefits of Medication Discussed/Verbalized Understanding Yes Time Spent on Visit: 22 minutes Alisha Lilly DO Psychiatry Attending 06/07/2020 documented in this encounter Plan of Treatment Upcoming Encounters Date Type Specialty Care Team Description 06/07/2020 Laboratory [facility] [address] terminal superintendent (current) use of anticoagulants* 06/11/2020 Telemedicine Psychiatry Alisha Lilly DO [address] [place] [address] [phone] 06/11/2020 Therapy Psychology Laura Mckinley PsyD [address] [place], [place] [id number] 09/17/2020 Office Visit Family Medicine Roger Alexandra MD [address] [place] [address] [phone] Health Maintenance Due Date Last Done Comments [...] disorder, recurrent episode, moderate Generalized anxiety disorder PTSD (post-traumatic stress disorder) Posttraumatic stress disorder documented in this encounter Advance Directives Documents on File Type Date Recorded Patient French Comber Expl 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 Advanced Directive
--- OUTSIDE RECORDS SUMMARY | 2023-07-25 05:14 | External Medical Summary | Summary of Care ---
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 t [...] Progress Notes * Abena Moralez, [facility] - 06/07/2020 3:32 PM EDT Medication Therapy Disease Management - Anticoagulation Patient: Kimberly Kendall : 1960 Current Warfarin Dose As of 06/07/2020 Warfarin maintenance plan: 15 mg (10 mg x 1.5) every Mon, Christian[place]; 10 mg (10 mg x 1) all other days Patient-Reported Symptoms: INR Result As of 06/07/2020 INR goal: 2.0-3.0 INR used for dosing: Warfarin Plan As of 06/07/2020 Full warfarin instructions: 06/07: Hold; 06/13: 10 mg; Otherwise 15 mg every Mon, Christiana; 10 mg all other days Next INR check: 06/14/2020 Additional Dosing Information: Description 5mg SuTuTh, 7.5mg all other days (5mg tabs-takes in AM) Repeat PT/INR in 1 week(s) Weekly dose: not changed Abena Moralez [facility] Clinical Pharmacist 06/07/2020, 3:34 PM documented in this encounter Plan of Treatment Upcoming Encounters Date Type Specialty Care Team Description 06/07/2020 Telemedicine Family Medicine Alonso Chávez MD [address] [place] [address] [phone] Arrived 06/11/2020 Telemedicine Psychiatry Alisha Lilly DO [address] [place] [address] 06/11/2020 Therapy Psychology Laura Mckinley PsyD [address] [place], [place] [id number] 06/14/2020 Anticoagulation Pharmacy [facility] [address] [place] [address] 09/17/2020 Office Visit Family Medicine Roger Alexandra MD [address] [place] [address] [phone] Health Maintenance Due Date Last Done Comments [...] Documents on File Type Date Recorded Patient [employer] Expl 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 Advanced Directive
--- OUTSIDE RECORDS SUMMARY | 2023-07-25 05:14 | External Medical Summary | Summary of Care ---
Author Name Unknown Organization [place] [address] Care Team Providers Care Bread Wrapper Operator Name Role Phone Roger Alexandra MD Primary Care Provider [phone] Reason for Visit * Reason Comments Other Encounter Details Date Type Department Care Team Description 06/06/2020 Telephone Psychiatry, [place] [address] [place] [address] Alisha Lilly, [address], [place] [id number] Other Allergies Active Allergy Reactions Severity Noted [...] Miscellaneous Notes * Telephone Encounter - Kimberly Hernandez OSA - 06/06/2020 2:26 PM EDT Pt called again and she said that she is having issues with losing memory, she is nervous and having panic attacks and can't concentrate. She wanted to just speak with you today. She is aware she hasthe appt with you next . Call her on the house phone at [phone]. * Telephone Encounter - Alisha Lilly DO [...] Lilly's office. Call transferred to psychiatry in [place]. documented in this encounter Plan of Treatment Upcoming Encounters Date Type Specialty Care Team Description 06/07/2020 Laboratory Laboratory Processing Gl, Lab Processing [address] [place] [address] 06/11/2020 Telemedicine Psychiatry Alisha Lilly DO [address] [place] [address] 06/11/2020 Therapy Psychology Laura Mckinley PsyD [address] [place] [address] 09/17/2020 Office Visit Family Medicine Roger Alexandra MD [address] [facility] [place] [address] [phone] Health Maintenance Due Date Last Done Comments [...] on File Type Date Recorded Patient Civil Engineer Expl 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 Advanced Directive
--- OUTSIDE RECORDS SUMMARY | 2023-07-25 05:14 | External Medical Summary | Summary of Care ---
Author Name Unknown Organization [place] [address] Care Team Providers Care High Pressure Cleaner Name Role Phone Roger Alexandra MD Primary Care Provider [phone] Reason for Visit * Reason Comments Other Encounter Details Date Type Department Care Team Description 06/06/2020 Telephone Psychiatry, [place] [address] [place] [address] Alisha Lilly, [address], [place] [id number] Other Allergies Active Allergy Reactions Severity Noted [...] Call her on the house phone at [phone]. * Telephone Encounter - Florencio Lillyah DO Paty - 06/06/2020 12:59 PM EDT Called Kimberly. [...] Lilly's office. Call transferred to psychiatry in [place]. documented in this encounter Plan of Treatment Upcoming Encounters Date Type Specialty Care Team Description 06/07/2020 Laboratory Laboratory Processing Glh, Lab Processing [address] [place] [address] group home (current) use of anticoagulants* 06/07/2020 Anticoagulation Pharmacy [facility] [address] [place] [address] 06/11/2020 Telemedicine Psychiatry Alisha Lilly DO [address] [place] [address] 06/11/2020 Therapy Psychology Laura Mckinley PsyD [address] [place], [place] [id number] 09/17/2020 Office Visit Family Medicine Roger Alexandra MD 132 [facility] [place] [address] [phone] Health Maintenance Due Date Last Done Comments [...] Documents on File Type Date Recorded Patient Funeral Sales Manager Expl 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 Advanced Directive
--- OUTSIDE RECORDS SUMMARY | 2023-07-25 05:14 | External Medical Summary | Summary of Care ---
Author Name Unknown Organization [place] [address] Care Team Providers Care Weight Loss Consultant Name Role Phone Roger Alexandra MD Primary Care Provider [phone] Reason for Visit * Reason Comments Anxiety Depression Encounter Details Date Type Department Care Team Description 05/14/2020 Telemedicine Psychiatry, [facility] [address] [place] [address] Alisha Lilly, DO [address] [place] [address] Major depressive disorder, recurrent episode, moderate (HCC)*; SIMA (generalized anxiety disorder); PTSD (post-traumatic stress disorder) Allergies Active Allergy Reactions Severity Noted Date Comments Aspirin Unknown 12/12/2007 von Willebrand's disease Salicylates 03/01/2000 von Willebrand's disease documented as of this encounter (statuses as of 05/14/2020) Medications Medication Sig Dispensed Refills Start Date [...] at bedtime. 30 Tab 2 05/14/2020 Active mirtazapine (REMERON) 15 MG Tablet Take 1 Tab by mouth at bedtime. 30 Tab 2 04/10/2020 0 Discontinue d(Refill) documented as of this encounter (statuses as of 05/14/2020) Active Problems Problem Noted Date Moderate episode [...] as of this encounter (statuses as of 05/14/2020) Resolved Problems Problem Noted Date Resolved Date [...] as of this encounter (statuses as of 05/14/2020) Immunizations Name Administration Dates Next Due H1N1 [...] encounter Progress Notes * Alisha Lilly, - 05/14/2020 2:00 PM EDT After connecting through [employer], patient was verified with two unique identifiers. Patient (or authorized legal bilingual call center representative) was then informed that this was [...] patient thatI have reviewed their record in [facility] and presented the opportunity for them to ask any questions reg arding the visit today. The patient agreed to participate. Patient was seen via a televisit given the current COVID 19 pandemic PSYCHOTHERAPY & MEDICATION MANAGEMENT RETURN VISIT NOTE Psychiatry, [facility] [address] [facility] [address] 05/14/2020 Kimberly Kendall CHIEF COMPLAINT: Bereavement, depression, anxiety INTERVAL HISTORY: Kimberly states that she has not been sleeping well. Last night she had 2 hours of sleep. She states that her anxiety is keeping her up. She is worried about paying for her house. They just purchased their house 10 months ago. She has been having anxiety attacks "all the time". Kimberly has been taking Ativan 0.5 mg BID. She has also been taking Hydroxyzine 50 mg once/day. She takes the Remeron at night. This doesn't help her sleep because she is struggling with nightmares. Kimberly states that her caregiver is at the house with her right now. She is having family stop by. She states 'I can have a house full and still feel alone". Kimberly denies suicidal ideation/plan/intent. She denies HI/AVH. No paranoid ideations or delusions. Kimberly states that she has not been eating well. She spends a lot of time sitting and watching TV. She eats supper everyday but doesn't eat breakfast and lunch. She has lost some weight. OBJECTIVE DATA: [place]IA-SUICIDE SEVERITY RATING SCALE Have [...] living SIGECAPS: - Sleep: Poor - Interest: Apathetic - Guilt: Denies - Energy: decreased - Concentration: difficult - Appetite: decreased - Psychosis: denies Anxiety: - Excessive Worry- yes - Restlessness- yes - Easily fatigued- yes - Difficulty concentrating or mind going blank- yes - Irritability- sometimes - Muscle tension- sometimes - Sleep disturbance- yes ROS EXAM: Denies chest pain, abdominal pain, fever, chills, sweats. All other ROS negative No reported side effects to current medications SUBSTANCE ABUSE: Denies ETOH use. Smoking down to 1/2 pack/day. Denies other illicit substance use. RELEVANT PAST PSYCHIATRIC, MEDICAL, FAMILY OR SOCIAL HX: No new changes CURRENT MEDS: Current Outpatient Medications Medication Sig Dispense Refill warfarin sodium (COUMADIN) 10 MG Tablet Take 2 tablets on Wednesday and Wednesday, and 1.5 tablets all other days or as directed by anticoagulation pharmacist. 60 Tab 2 LORAzepam (ATIVAN) 0.5 MG Tablet Take 1 Tab by mouth 2 times a day as needed for Anxiety. 60 Tab 0 mirtazapine (REMERON) 15 MG Tablet Take 1 Tab by mouth at bedtime. 30 Tab 2 Albuterol Sulfate (PROAIR HFA) 108 [...] she was to at 15 and he had been supportive- he recently . Significant COPD on Oxygen. Has been on disability for many years. 10th grade education. 4 inpatient admissions. No SA. No D&A abuse.Did not tolerate Effexor or Lexapro ASSESSMENT- DIAGNOSIS:Major depressive disorder recurrent episode moderate Generalized Anxiety Disorder PTSD Bereavement PLAN: - Can take Hydroxyzine 50 mg BID PRN for anxiety - Can take Ativan 0.5 mg BID PRN for . Discussed trying to not utilize this over Hydroxyzine and use this just as emergency rescue - Increase Remeron 30 mg QHS to help with insomnia, depression and low appetite. - Strongly recommend therapy-therapy referral placed - No reported side effects to current medications - Crisis planning-- Kimberly Kendall has been provided with Psychiatry emergency telephone numbers, including crisis number, text suicide hotline and suicide hotline. The crisis plan was reviewedand updated if necessary based on the information above. Return 2-3 weeks Risk/Benefits of Medication Discussed/Verbalized Understanding Yes Time Spent on Visit: 30 minutes Please note >17 minutes of counseling time over and above medication management was spent with patient discussing self care and providing supportive therapy Alisha Lilly DO Psychiatry Attending 05/14/2020 documented in this encounter Plan of Treatment Upcoming Encounters Date Type Specialty Care Team Description 05/16/2020 Anticoagulation Pharmacy [facility] [address] [facility] [place] [address] 06/11/2020 Telemedicine Psychiatry Alisha Lilly DO [address] [facility] [place] [address] 06/11/2020 Therapy Psychology Laura [facility]inley PsyD [address] [facility] [address] 09/17/2020 Office Visit Family Medicine Roger Alexandra MD [address] [facility] [place] [address] [phone] Health Maintenance Due Date Last Done Comments [...] Documents on File Type Date Recorded Patient Band Head Saw Operator Expl 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 Advanced Directive
--- OUTSIDE RECORDS SUMMARY | 2023-07-25 05:14 | External Medical Summary ---
Author Name Unknown Address [address] [facility] [place] [address] Phone Organization K0G:[facility] [employer] [address] [facility] [place] [address] Laboratory Report Ordering Provider Test Date Status STEFANI MARINELLI 05/30/2020 13:50:00 Final Observation Date Value Abnormality Reference (Units ) Status PT 05/30/2020 15:12 19.8 Above high normal 11.5- 14.6 (seconds) Final INR 05/30/2020 15:12 1.66 Above high normal 0.84- 1.14 Final Performing Location [facility] [employer] [address] [email or web address] [address]
--- OUTSIDE RECORDS SUMMARY | 2023-07-25 05:14 | External Medical Summary | Summary of Care ---
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 Called and left message Please reschedule for next available return appointment given acuity documented in this encounter Plan of Treatment Upcoming Encounters Date Type Specialty Care Team Description 06/11/2020 Therapy Psychology Laura Mckinley PsyD [address] [place] [address] [phone] 06/14/2020 Laboratory Laboratory Processing [facility], Lab Processing [address] [facility] [place] [address] 06/14/2020 Anticoagulation Pharmacy [facility], [facility] [address] [facility] [place] [address] 09/17/2020 Office Visit Family Medicine Roger Alexandra MD [address] [facility] [place] [address] Health Maintenance Due [...] Documents on File Type Date Recorded Patient Restaurant 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 Advanced Directive
--- OUTSIDE RECORDS SUMMARY | 2023-07-25 05:14 | External Medical Summary | Summary of Care ---
Author Name Unknown Organization [place] [address] Care Team Providers Care Vp Talent Management Name Role Phone Roger Alexandra MD Primary Care Provider [phone] Reason for Visit * Reason Comments Dosage Adjustment Via Phone (anticoag Cl inic) Encounter Details Date Type Department Care Team Description 05/16/2020 Anticoagulation Pharmacy, [facility] [address] [place] [address] [facility] [address] [place] [address] Cerebrovascular disease, arteriosclerotic, post-stroke* Allergies Active Allergy Reactions Severity Noted Date Comments Aspirin Unknown 12/12/2007 von Willebrand's disease Salicylates 03/01/2000 von Willebrand's disease documented as of this encounter (statuses as of 05/16/2020) Medications Medication Sig Dispensed Refills Start Date [...] as of this encounter (statuses as of 05/16/2020) Active Problems Problem Noted Date Moderate episode [...] severe 04/06/2007 SIMA (generalized anxiety disorder) 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 06/01/2005 Overview: ICD-10 update of inactive term Tobacco use disorder documented as of this encounter (statuses as of 05/16/2020) Resolved Problems Problem Noted Date Resolved Date [...] as of this encounter (statuses as of 05/16/2020) Immunizations Name Administration Dates Next Due H1N1 [...] this encounter Progress Notes * Abena Moralez, [facility] - 05/16/2020 2:03 PM EDT Medication Therapy Disease Management - Anticoagulation Patient: Kimberly Abhilash Kendall : 1960 Contacts Type Contact Phone 05/16/2020 02:02 PM Phone (Outgoing) Kimberly Kendall (Self) [phone] (H) Left Message Current Warfarin Dose As of 05/16/2020 Warfarin maintenance plan: 20 mg (10 mg x 2) every Mon, Fri; 15 mg (10 mg x 1.5) all other days Patient-Reported Symptoms: INR Result As of 05/16/2020 INR goal: 2.0-3.0 INR used for dosin.37! (05/16/2020) Warfarin Plan As of 05/16/2020 Full warfarin instructions: 05/16: 20 mg; 05/17: 5 mg; 05/20: 15 mg; Otherwise 20 mg every Mon, Fri; 15 mg all other days Next INR check: 05/20/2020 Additional Dosing Information: Description 5mg SuTuTh, 7.5mg all other days (5mg tabs-takes in AM) Repeat PT/INR in 4 day(s) Weekly dose: not changed Abena Moralez [facility] Clinical Pharmacist 05/16/2020, 2:03 PM documented in this encounter Plan of Treatment Upcoming Encounters Date Type Specialty Care Team Description 05/20/2020 Anticoagulation Pharmacy [facility] [address] [facility] [place] [address] 06/11/2020 Telemedicine Psychiatry Alisha Lilly DO [address] [place] [facility] [place] [address] 06/11/2020 Therapy Psychology Laura Mckinley PsyD [address] [place] [facility] [place] [address] 09/17/2020 Office Visit Family Medicine Roger Alexandra MD [address] [facility] [place] [address] [phone] Health Maintenance Due Date Last Done Comments [...] Documents on File Type Date Recorded Patient Shellfish Grower Expl 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 Advanced Directive
--- OUTSIDE RECORDS SUMMARY | 2023-07-25 05:15 | External Medical Summary | Summary of Care ---
Author Name Unknown Organization [place] [address] Care Team Providers Care Medical Housekeeper Name Role Phone Roger Alexandra MD Primary Care Provider [phone] Reason for Visit * Reason Comments Dosage Adjustment Via Phone (anticoag Cl inic) Encounter Details Date Type Department Care Team Description 04/09/2020 Anticoagulation Pharmacy, [facility] [address] [place] [address] [address] Cerebrovascular disease, arteriosclerotic, post-stroke* Allergies Active Allergy Reactions Severity Noted Date Comments Aspirin Unknown 12/12/2007 von Willebrand's disease Salicylates 03/01/2000 von Willebrand's disease documented as of this encounter (statuses as of 04/09/2020) Medications Medication Sig Dispensed Refills Start Date End Date Status OXYGEN 4 L during the day as needed and at bedtime 0 02/14/2015 Active albuterol-ipratrop ium (DUONEB) 2.5-0.5 MG/3ML nebulizer solution Inhale 3 mL by mouth every 4 hours as needed for Shortness of Breath or Wheezing. 0 09/27/2015 Activ e Acetaminophen (TYLENOL) 325 MG CAPS Take by mouth. 0 Active warfarin sodium (COUMADIN) 5 MG Tablet Take 1-2 Tabs by mouth daily. Take as directed by anticoagulation pharmacist. 60 Tab 5 12/29/2019 Active hydrOXYzine HCl 50 MG Tablet Take [...] as needed for Anxiety. 60 Tab 0 03/29/2020 Active escitalopram (LEXAPRO) 10 MG Tablet Take 1 Tab by mouth daily. 30 Tab 2 03/29/2020 Active documented as of this encounter (statuses as of 04/09/2020) Active Problems Problem Noted Date Moderate episode [...] as of this encounter (statuses as of 04/09/2020) Resolved Problems Problem Noted Date Resolved Date [...] as of this encounter (statuses as of 04/09/2020) Immunizations Name Administration Dates Next Due H1N1 [...] have Coronavirus / COVID-19? Unable to assess 04/05/2020 11:53 AM EDT documented as of this encounter Progress Notes * Abena Moralez, [facility] - 04/09/2020 3:55 PM EDT Medication Therapy Disease Management - Anticoagulation Patient: Kimberly Hung Enoch : 1960 Contacts Type Contact Phone 04/09/2020 03:55 PM Phone (Outgoing) Kimberly Kendall (Self) [phone] (M) Current Warfarin Dose As of 04/09/2020 Warfarin maintenance plan: 15 mg (5 mg x 3) every day Patient-Reported Symptoms: Patient Findings Negatives: Signs/symptoms of thrombosis, Signs/symptoms of bleeding, Change in health, Change in alcohol use, Change in activity, Upcoming invasive procedure, Missed doses, Extra doses, Change in medications, Change in diet/appetite, Bruising INR Result As of 04/09/2020 INR goal: 2.0-3.0 INR used for dosin.40! (04/09/2020) Warfarin Plan As of 04/09/2020 Full warfarin instructions: 04/09: 20 mg; 04/10: 20 mg; Otherwise 15 mg every day Next INR check: 04/16/2020 Additional Dosing Information: Description 5mg SuTuTh, 7.5mg all other days (5mg tabs-takes in AM) Repeat PT/INR in 1 week(s) Weekly dose: not changed Abena Moralez [facility] Clinical Pharmacist 04/09/2020, 4:03 PM documented in this encounter Plan of Treatment Upcoming Encounters Date Type Specialty Care Team Description 04/24/2020 Telemedicine Psychiatry Alisha Lilly, DO [address] [facility] [place] [address] 09/17/2020 Office Visit Family Medicine Roger Alexandra MD [address] [facility] [place] [address] Health Maintenance Due Date Last Done [...] Documents on File Type Date Recorded Patient Boat Canvas Installer Expl 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 Advanced Directive
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
--- OUTSIDE RECORDS SUMMARY | 2023-07-25 05:15 | External Medical Summary | Summary of Care ---
Author Name Unknown Organization [place] [address] Care Team Providers Care Metal Plater Name Role Phone Roger Alexandra MD Primary Care Provider [phone] Reason for Visit * Reason Comments Advice Encounter Details Date Type Department Care Team Description 05/09/2020 Telephone Psychiatry, [facility] [address] [place] [address] Alisha Lilly, DO [address] [place] [address] Advice Allergies Active Allergy Reactions Severity Noted [...] for Anxiety. 60 Tab 0 04/23/2020 Active documented as of this encounter (statuses [...] Telephone Encounter - Alisha Lilly DO - 05/13/2020 7:45 AM EDT Attempted to call without answer. Please schedule for next available return appointment * Telephone Encounter - Blanche Braswell OSA - 05/10/2020 1:01 PM EDT Pt states that she is returning a call to Dr. Lilly and needs to speak to her as soon as possible. Please advise. Thank you. * Telephone Encounter - Jackie Leija OSA - 05/09/2020 11:55 AM EDT Pt called in, very upset, stated she lost her recently and is having a hard time coping, ptwas crying and reports depression, no thoughts of harming herself or others, requests to speak to Dr. Lilly flaquito. [phone] or [phone] documented in this encounter Plan of Treatment Upcoming Encounters Date Type Specialty Care Team Description 05/13/2020 Laboratory Laboratory Processing [facility], Lab Processing Mobile [address] [place] [address] skilled nursing (current) use of anticoagulants* 05/13/2020 Anticoagulation Pharmacy [place], [facility] [address] [place] [address] 06/11/2020 Telemedicine Psychiatry Alisha Lilly DO [address] [place] [address] 06/11/2020 Therapy Psychology Laura Mckinley PsyD [address] [place] [address] 09/17/2020 Office Visit Family Medicine Roger Alexandra MD [address] [place] [address] [phone] Health Maintenance Due Date Last Done Comments [...] Documents on File Type Date Recorded Patient Skin Former Expl 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 Advanced Directive
--- OUTSIDE RECORDS SUMMARY | 2023-07-25 05:15 | External Medical Summary ---
Author Name Unknown Address [address] [facility] [place] [address] Phone Organization [id number]:[facility] [employer] [address] [place], [place] [address] [place] [address] Laboratory Report Ordering Provider Test Date Status STEFANI MARINELLI 04/22/2020 08:05:00 Final Observation Date Value Abnormality Reference (Units ) Status PT 04/22/2020 12:55 12.9 11.5-14.6 (se conds) Final INR 04/22/2020 12:55 0.98 0.84-1.14 Fin al Performing Location [facility] [employer] [address] [place] [address]
--- OUTSIDE RECORDS SUMMARY | 2023-07-25 05:15 | External Medical Summary | Summary of Care ---
Author Name Unknown Organization [place] [address] Care Team Providers Care Echo Vascular Tech Name Role Phone Roger Alexandra MD Primary Care Provider [phone] Reason for Visit * Reason Comments Advice Encounter Details Date Type Department Care Team Description 03/29/2020 Telephone Psychiatry, [facility] [address] [place] [address] Alisha Lilly, [address] [place], [place] [id number] Advice Allergies Active Allergy Reactions Severity Noted Date Comments Aspirin Unknown 12/12/2007 von Willebrand's disease Salicylates 03/01/2000 von Willebrand's disease documented as of this encounter (statuses as of 03/29/2020) Medications Medication Sig Dispensed Refills Start Date [...] mouth daily. 30 Tab 2 03/29/2020 Active escitalopram (LEXAPRO) 10 MG Tablet Take 1 Tab by mouth daily. 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 Unable to assess 03/26/2020 12:32 AM EDT documented as of this encounter Miscellaneous Notes * Telephone Encounter - Alisha Lilly DO - 03/29/2020 12:28 PM EDT Kimberly's was diagnosed with cancer She has a armored truck driver that comes Wednesday, Wednesday, , Wednesday. She is there now. Kimberly is NOT taking Effexor- that has been discontinued Sent refill for Lexapro Can use Ativan 0.5 mg BID PRN given acute stressor of 's grave diagnosis Strongly encouraged therapy She denies SI/HI/AVH * Telephone Encounter - Kim Contreras OSA - 03/29/2020 10:39 AM EDT Patient is asking if there is any way Dr. Lilly give her a call today. States [place] is in [place] Cancer and they have given him 6 months to live. Very tearfulwhen on the phone with me. Requesting something for the anxiety. documented in this encounter Plan of Treatment Upcoming Encounters Date Type Specialty Care Team Description 04/01/[address] [facility] [address] [facility] [address] 04/01/2020 Telemedicine Psychiatry Alisha Lilly, DO [address] [place], [place] [id number] 04/24/2020 Office Visit Psychiatry Alisha Lilly, DO [address] [place], [place] [address] 09/17/2020 Office Visit Family Medicine [facility] [address] [phone] Health Maintenance Due Date Last Done Comments [...] on File Type Date Recorded Patient Head Still Operator Expl 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 Advanced Directive
--- OUTSIDE RECORDS SUMMARY | 2023-07-25 05:15 | External Medical Summary | Summary of Care ---
Author Name Unknown Organization [place] [address] Care Team Providers Care Manager Commercial Sales Name Role Phone Roger Alexandra MD Primary Care Provider [phone] Reason for Visit * Reason Comments Appointment PSYCHOLOGY REFERRAL Encounter Details Date Type Department Care Team Description 04/24/2020 Telephone Psychiatry, [place] [address] [place] [address] Alisha Llily, [address] [place] [address] Appointment (PSYCHOLOGY REFERRAL ) Allergies Active Allergy Reactions Severity Noted Date Comments Aspirin Unknown 12/12/2007 von Willebrand's disease Salicylates 03/01/2000 von Willebrand's disease documented as of this encounter (statuses as of 04/26/2020) Medications Medication Sig Dispensed Refills Start Date [...] as of this encounter (statuses as of 04/26/2020) Active Problems Problem Noted Date Moderate episode [...] severe 04/06/2007 SIMA (generalized anxiety disorder) 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 * Telephone Encounter - Maggie Amanda OSA - 04/24/2020 2:29 PM EDT Patient with referral for Psychology, please schedule. SIMA (generalized anxiety disorder) MDD (major depressive disorder), recurrent episode, moderate (HCC) Depression. Grief. Anxiety documented in this encounter Plan of Treatment Upcoming Encounters Date Type Specialty Care Team Description 04/29/2020 Laboratory Laboratory Processing [place], [facility] [address] [place] [address] 04/29/2020 Anticoagulation Pharmacy [facility] [address] [place] [address] 06/11/2020 Therapy Psychology Laura Mckinley PsyD [address] [facility] [place] [address] [phone] 09/17/2020 Office Visit Family Medicine Roger Alexandra MD [address] [place] [address] [phone] Health Maintenance Due Date Last Done Comments [...] on File Type Date Recorded Patient Pattern Checker Expl 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 Advanced Directive
--- OUTSIDE RECORDS SUMMARY | 2023-07-25 05:15 | External Medical Summary | Summary of Care ---
Author Name Unknown Organization [place] [address] Care Team Providers Care State Director Name Role Phone Roger Alexandra MD Primary Care Provider [phone] Encounter Details Date Type Department Care Team Description 04/01/2020 Telemedicine Psychiatry, [facility] [address] Alisha Lilly, DO [address] [place] [address] No Show for psych appt* Allergies Active Allergy Reactions Severity Noted Date Comments Aspirin Unknown 12/12/2007 von Willebrand's disease Salicylates 03/01/2000 von Willebrand's disease documented as of this encounter (statuses as of 04/01/2020) Medications Medication Sig Dispensed Refills Start Date [...] as of this encounter (statuses as of 04/01/2020) Active Problems Problem Noted Date Moderate episode [...] severe 04/06/2007 SIMA (generalized anxiety disorder) 02/08 snf current use of anticoagulant t herapy 06/01/2005 Overview: ICD-10 update of inactive term Tobacco use disorder documented as of this encounter (statuses as of 04/01/2020) Resolved Problems Problem Noted Date Resolved Date [...] as of this encounter (statuses as of 04/01/2020) Immunizations Name Administration Dates Next Due H1N1 [...] have Coronavirus / COVID-19? Unable to assess 04/01/2020 8:44 AM EDT documented as of this encounter Progress Notes * Alisha Lilly DO - 04/01/2020 2:00 PM EDT Patient failed to keep appointment. was just discharged today from hospital- given 15 to 30days to live with extensive cancer diagnosis. Granddaughter gave details today. I asked her to haveCharlene call me back at her convenience Dr. Lilly documented in this encounter Plan of Treatment Upcoming Encounters Date Type Specialty Care Team Description 04/24/2020 Office Visit Psychiatry Alisha Lilly DO [address] [facility] [place] [address] [phone] 09/17/2020 Office Visit Family Medicine Roger Alexandra MD 132 [facility] [place] [address] Health Maintenance Due Date [...] on File Type Date Recorded Patient Special Events 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 Advanced Directive
--- OUTSIDE RECORDS SUMMARY | 2023-07-25 05:15 | External Medical Summary ---
Author Name Unknown Address 132 [facility] [place] [address] Phone Organization K0G:[facility] [employer] [address] [facility] [place] [address] Laboratory Report Ordering Provider Test Date Status STEFANI MARINELLI 05/13/2020 10:15:00 Final Observation Date Value Abnormality Reference (Units ) Status PT 05/13/2020 14:26 15.6 Above high normal 11.5- 14.6 (seconds) Final INR 05/13/2020 14:26 1.23 Above high normal 0.84- 1.14 Final Performing Location [facility] [employer] [address] [place] [address]
--- OUTSIDE RECORDS SUMMARY | 2023-07-25 05:15 | External Medical Summary | Summary of Care ---
Author Name Unknown Organization [facility] [place] [address] Care Team Providers Care Tax Evaluator Name Role Phone Roger Alexandra MD Primary Care Provider [phone] Reason for Visit * Reason Comments Dosage Adjustment Via Phone (anticoag Cl inic) Encounter Details Date Type Department Care Team Description 05/09/2020 Anticoagulation Pharmacy, [facility] [address] [place] [address] [address] Cerebrovascular disease, arteriosclerotic, post-stroke* Allergies Active Allergy Reactions Severity Noted Date Comments Aspirin Unknown 12/12/2007 von Willebrand's disease Salicylates 03/01/2000 von Willebrand's disease documented as of this encounter (statuses as of 05/09/2020) Medications Medication Sig Dispensed Refills Start Date [...] as of this encounter (statuses as of 05/09/2020) Active Problems Problem Noted Date Moderate episode [...] as of this encounter (statuses as of 05/09/2020) Resolved Problems Problem Noted Date Resolved Date [...] as of this encounter (statuses as of 05/09/2020) Immunizations Name Administration Dates Next Due H1N1 [...] Progress Notes * Abena Moralez, [facility] - 05/09/2020 3:16 PM EDT Medication Therapy Disease Management - Anticoagulation Patient: Kimberly Kendall : 1960 Current Warfarin Dose As of 05/09/2020 Warfarin maintenance plan: 20 mg (5 mg x 4) every Mon, Fri; 15 mg (5 mg x 3) all other days Patient-Reported Symptoms: Patient Findings Positives: Missed doses (states missed 1 dose in last week ) Negatives: Signs/symptoms of thrombosis, Signs/symptoms of bleeding, Change in health, Change in alcohol use, Change in activity, Upcoming invasive procedure, Extra doses, Change in medications, Change in diet/appetite, Bruising INR Result As of 05/09/2020 INR goal: 2.0-3.0 INR used for dosin.32! (05/09/2020) Warfarin Plan As of 05/09/2020 Full warfarin instructions: 05/09: 20 mg; 05/11: 20 mg; 05/12: 20 mg; Otherwise 20 mg every Mon, Fri; 15 mg all other days Next INR check: 05/13/2020 Additional Dosing Information: Description 5mg SuTuTh, 7.5mg all other days (5mg tabs-takes in AM) Repeat PT/INR in 4 day(s) Weekly dose: not changed Abena Moralez [facility] Clinical Pharmacist 05/09/2020, 3:18 PM documented in this encounter Plan of Treatment Upcoming Encounters Date Type Specialty Care Team Description 05/13/2020 Anticoagulation Pharmacy [facility] [address] [place] [address] 06/11/2020 Therapy Psychology Laura Mckinley PsyD [address] [facility] [place] [address] 09/17/2020 Office Visit Family Medicine Roger Alexandra MD [address] [place] [address] [phone] Health Maintenance Due Date Last Done Comments [...] Documents on File Type Date Recorded 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
--- OUTSIDE RECORDS SUMMARY | 2023-07-25 05:15 | External Medical Summary | Summary of Care ---
Author Name Unknown Organization [place] [address] Care Team Providers Care Member Services Representative Name Role Phone Roger Alexandra MD Primary Care Provider [phone] Reason for Visit * Reason Comments Dosage Adjustment Via Phone (anticoag Cl inic) Encounter Details Date Type Department Care Team Description 04/29/2020 Anticoagulation Pharmacy, [facility] [address] [place] [address] [address] Cerebrovascular disease, arteriosclerotic, post-stroke* Allergies Active Allergy Reactions Severity Noted Date Comments Aspirin Unknown 12/12/2007 von Willebrand's disease Salicylates 03/01/2000 von Willebrand's disease documented as of this encounter (statuses as of 04/29/2020) Medications Medication Sig Dispensed Refills Start Date [...] as of this encounter (statuses as of 04/29/2020) Active Problems Problem Noted Date Moderate episode [...] severe 04/06/2007 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 (generalized anxiety disorder) 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 06/01/2005 Overview: ICD-10 update of inactive term Tobacco use disorder documented as of this encounter (statuses as of 04/29/2020) Resolved Problems Problem Noted Date Resolved Date [...] as of this encounter (statuses as of 04/29/2020) Immunizations Name Administration Dates Next Due H1N1 [...] * Abena Moralez, [facility] - 04/29/2020 2:04 PM EDT Medication Therapy Disease Management - Anticoagulation Patient: Kimberly Abhilash Kendall : 1960 Contacts Type Contact Phone 04/29/2020 02:03 PM Phone (Outgoing) Kimberly Kendall (Self) [phone] (H) Current Warfarin Dose As of 04/29/2020 Warfarin maintenance plan: 20 mg (5 mg x 4) every Mon, Fri; 15 mg (5 mg x 3) all other days Patient-Reported Symptoms: Patient Findings Positives: Missed doses (patinet is missing doses and dosing herself ) Negatives: Signs/symptoms of thrombosis, Signs/symptoms of bleeding, Change in health, Change in alcohol use, Change in activity, Upcoming invasive procedure, Extra doses, Change in medications, Change in diet/appetite, Bruising INR Result As of 04/29/2020 INR goal: 2.0-3.0 INR used for dosin.19! (04/29/2020) Warfarin Plan As of 04/29/2020 Full warfarin instructions: 20 mg every Mon, Fri; 15 mg all other days Next INR check: 05/02/2020 Additional Dosing Information: Description 5mg SuTuTh, 7.5mg all other days (5mg tabs-takes in AM) Repeat PT/INR in 3 day(s) Weekly dose: not changed Abena Moralez [facility] Clinical Pharmacist 04/29/2020, 2:05 PM documented in this encounter Plan of Treatment Upcoming Encounters Date Type Specialty Care Team Description 04/29/2020 Laboratory [facility] [address] [place] [address] alf (current) use of anticoagulants* 06/11/2020 Therapy Psychology Laura Mckinley PsyD [address] [place] [address] 09/17/2020 Office Visit Family Medicine Roger [facility]andra MD [address] [facility] [address] Health Maintenance Due Date Last Done [...] on File Type Date Recorded Patient Law Office 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 Advanced Directive
--- OUTSIDE RECORDS SUMMARY | 2023-07-25 05:15 | External Medical Summary | Summary of Care ---
Author Name Unknown Organization [place] [address] Care Team Providers Care Yacht Captain Name Role Phone Roger Alexandra MD Primary Care Provider [phone] Reason for Visit * Reason Comments Dosage Adjustment Via Phone (anticoag Cl inic) Encounter Details Date Type Department Care Team Description 04/01/2020 Anticoagulation Pharmacy, [facility] [address] [place] [address] [address] Cerebrovascular disease, arteriosclerotic, post-stroke* Allergies Active Allergy [...] [facility] - 04/01/2020 4:06 PM EDT Medication Therapy Disease Management - Anticoagulation Patient: Kimberly Kendall : 1960 Current Warfarin Dose As of 04/01/2020 Warfarin maintenance plan: 15 mg (5 mg x 3) every day Patient-Reported Symptoms: INR Result As of 04/01/2020 INR goal: 2.0-3.0 INR used for dosin.79! (04/01/2020) Warfarin Plan As of 04/01/2020 Full warfarin instructions: 04/02: 15 mg; 04/03: 15 mg; 04/04: 15 mg; Otherwise 15 mg every day Next INR check: 04/09/2020 Additional Dosing Information: Description 5mg SuTuTh, 7.5mg all other days (5mg tabs-takes in AM) Repeat PT/INR in 8 day(s) Weekly dose: increased Abena Moralez [facility] Clinical Pharmacist 04/01/2020, 4:07 PM documented in this encounter Plan of Treatment Upcoming Encounters Date Type Specialty Care Team Description 04/24/2020 Office Visit Psychiatry Alisha Lilly, DO [address] [facility] [place] [address] [phone] 09/17/2020 Office Visit Family Medicine Roger Alexandra [...] 06/27/2008 *DISCUSS TOBACCO CESSATION (REFER TO SMARTSET #[id number]) 01/04/2020 *ADVANCE DIRECTIVE NOT ON FILE 03/08/2020 [...] Documents on File Type Date Recorded Patient Motor Vehicle Clerk Expl 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 Advanced Directive
--- OUTSIDE RECORDS SUMMARY | 2023-07-25 05:15 | External Medical Summary | Summary of Care ---
Author Name Unknown Organization [place] [address] Care Team Providers Care Cumulative Effects Analyst Name Role Phone Roger Alexandra MD Primary Care Provider [phone] Reason for Referral * Evaluate & Treat - Unlimited Visits (Within 10 days (routine)) Status Reason Specialty Diagnoses / Procedures Referred By Contact Referred To Contact Pending Review Specialty Services Required Psychology Diagnoses SIMA (generalized anxiety disorder) MDD (major depressive disorder), recurrent episode, moderate (HCC) Alisha Lilly, DO [address] [place] [address] Reason for Visit * Reason Comments Anxiety Depression Encounter Details Date Type Department Care Team Description 04/24/2020 Telemedicine Psychiatry, [address] [address] Alisha Lilly DO [address] [place] [address] SIMA (generalized anxiety disorder)*; MDD (major depressive disorder), recurrent episode, moderate (HCC); PTSD (post-traumatic stress disorder) Allergies Active Allergy Reactions Severity Noted Date Comments Aspirin Unknown 12/12/2007 von Willebrand's disease Salicylates 03/01/2000 von Willebrand's disease documented as of this encounter (statuses as of 04/24/2020) Medications Medication Sig Dispensed Refills Start Date [...] as of this encounter (statuses as of 04/24/2020) Active Problems Problem Noted Date Moderate episode of recurrent major depr essive disorder 03/05/2020 Morbid obesity due to excess calories Oxygen dependent 12/29/2019 Acquired hypothyroidism 04/16/2015 Narcotic addiction 10/04/2014 Idiopathic cardiomyopathy 09/15/2013 Von Willebrand disease 03/10/2013 Disc disorder of lumbar region 02/04/201 0 Cerebrovascular disease, arterioscleroti c, post-stroke 02/26/2009 Overview: Modified per CVA protocol #8 Patent foramen ovale 12/21/2008 Obstructive sleep apnea 07/05/2007 Overview: ICD-10 update of inactive term COPD, severe 04/06/2007 SIMA (generalized anxiety disorder) 02/08 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 Patient (or authorized legal international representative) was then informed that this was [...] patient thatI have reviewed their record in [facility] and presented the opportunity for them to ask any questions reg arding the visit today. The patient agreed to participate. Patient was seen via a televisit given the current COVID 19 pandemic PSYCHOTHERAPY & MEDICATION MANAGEMENT RETURN VISIT NOTE Psychiatry, [facility] [address] [facility] [address] 04/24/2020 Kimberly Kendall CHIEF COMPLAINT: Depression and anxiety INTERVAL HISTORY: Kimberly states that the last few days she has been spending a lot of time crying. Her son is coming to visit today. Her granddaughter moved in with her, but she works. Support and encouragement provided for her to continue taking care of her ADLs-- eating, showering, surrounding herself with family. Kimberly has been trying to get some rest. Last night she slept 4 hours. She has not been taking naps during the day. She spends a lot of time sitting. She has not been getting outside much. She has not been eating very well since her passed. We discussed getting some protein shakes in the meantime. Kimberly denies suicidal ideation/plan/intent. She denies HI/AVH. No paranoid ideations or delusions. No D&A abuse. OBJECTIVE DATA: COLUMBIA-SUICIDE SEVERITY RATING SCALE Have [...] living SIGECAPS: - Sleep: Difficult - Interest: apathetic - Guilt: Yes - Energy: decreased - Concentration: difficult - Appetite: decreased - Psychomotor Activity: very anxious and restless - Psychosis: denies Anxiety: - Excessive Worry- sometimes - Restlessness- yes - Easily fatigued- yes [...] rate, tone and volume and goal directed Mood:anxious and depressed Affect: type - dysthymic; range -full range; lability -no Associations:intact Thought [...] 4 inpatient admissions. No SA. No D&A abuse. Did not tolerate Effexor or Lexapro ASSESSMENT- DIAGNOSIS:Major depressive disorder recurrent episode moderate Generalized Anxiety Disorder PTSD Bereavement PLAN: - Can take Hydroxyzine 50 mg BID PRN for anxiety - Can take Ativan 0.5 mg BID PRN for anxiety - Continue Remeron 15 mg QHS to help with insomnia, depression and low appetite. She has been taking it most nights and denies any side effects. Consider increasing in a few weeks if depression persists. Though what she is experiencing now is very normal for bereavement - Strongly recommend therapy- therapy referral placed - No reported side effects [...] 21 minutes Alisha Lilly DO Psychiatry Attending 04/24/2020 documented in this encounter Plan of Treatment Upcoming Encounters Date Type Specialty Care Team Description 04/29/2020 Anticoagulation Pharmacy [facility] [address] [address] 09/17/2020 Office Visit Family Medicine Roger Alexandra MD [address] [address] [phone] Scheduled Referrals Name Type Priority Associated Diagnoses [...] (generalized anxiety disorder)- Primary Generalized anxiety disorder MDD (major depressive disorder), recurrent episode, moderate (HCC) Major depressive disorder, recurrent episode, moderate PTSD (post-traumatic stress disorder) Posttraumatic stress disorder documented in this encounter Advance Directives Documents on File Type Date Recorded Patient Field Rep Expl 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 Advanced Directive
--- OUTSIDE RECORDS SUMMARY | 2023-07-25 05:15 | External Medical Summary | Summary of Care ---
Author Name Unknown Organization [place] [address] Care Team Providers Care Smasher Hand Name Role Phone Roger Alexandra MD Primary Care Provider [phone] Reason for Visit * Reason Comments Medication Refill Encounter Details Date Type Department Care Team Description 04/23/2020 Refill [facility] [place] [address] [place] [address] [facility] [address] [place], [place] [id number] Allergies Active Allergy Reactions Severity Noted Date Comments Aspirin Unknown 12/12/2007 von Willebrand's disease Salicylates 03/01/2000 von Willebrand's disease documented as of this encounter (statuses as of 04/23/2020) Medications Medication Sig Dispensed Refills Start Date [...] for Anxiety. 60 Tab 0 04/23/2020 Active LORAzepam (ATIVAN) 0.5 MG Tablet Take 1 Tab by mouth 2 times a day as needed for Anxiety. 60 Tab 0 03/29/2020 0 Discontinue d(Refill) documented as of this encounter (statuses as of 04/23/2020) Active Problems Problem Noted Date Moderate episode [...] as of this encounter (statuses as of 04/23/2020) Resolved Problems Problem Noted Date Resolved Date [...] as of this encounter (statuses as of 04/23/2020) Immunizations Name Administration Dates Next Due H1N1 [...] Telephone Encounter - Alisha Lilly DO - 04/23/2020 3:02 PM EDT Signed Prescriptions: Disp Refills LORAzepam (ATIVAN) 0.5 MG Tablet 60 Tab 0 Sig: Take 1 Tab by mouth 2 times a day as needed for Anxiety. Authorizing Provider: ALISHA LILLY * Telephone Encounter - Milvia Benz TECH - 04/23/2020 1:28 PM EDT [facility] requesting a refill for Lorazepam 0.5 mg tablet. Pt STEW: 04/10/20 with a scheduled return appt 04/24/2020. Pt had 1 cx'd appt & 0 NO SHOW appt. Medication was last filled on 03/29/20 with (#60) no refills. 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
--- OUTSIDE RECORDS SUMMARY | 2023-07-25 05:15 | External Medical Summary ---
Author Name Unknown Address [address] [facility] [place] [address] Phone Organization K0G:[facility] [address] [facility] [place] [address] Laboratory Report Ordering Provider Test Date Status STEFANI MARINELLI 04/29/2020 09:05:00 Final Observation Date Value Abnormality Reference (Units ) Status PT 04/29/2020 13:52 15.2 Above high normal 11.5- 14.6 (seconds) Final INR 04/29/2020 13:52 1.19 Above high normal 0.84- 1.14 Final Performing Location [facility] [employer] [address] [place] [address]
--- OUTSIDE RECORDS SUMMARY | 2023-07-25 05:15 | External Medical Summary ---
Author Name Unknown Address [address] [facility] [place] [address] Phone Organization K0G:[facility] [address] [facility] [place] [address] Laboratory Report Ordering Provider Test Date Status STEFANI MARINELLI 04/09/2020 12:00:00 Final Observation Date Value Abnormality Reference (Units ) Status PT 04/09/2020 14:07 17.3 Above high normal 11.5- 14.6 (seconds) Final INR 04/09/2020 14:07 1.40 Above high normal 0.84- 1.14 Final Performing Location [place] [facility] [address] [place] [address]
--- OUTSIDE RECORDS SUMMARY | 2023-07-25 05:15 | External Medical Summary | Summary of Care ---
Author Name Unknown Organization [place] [address] Care Team Providers Care Railroad Police Name Role Phone Roger Alexandra MD Primary Care Provider [phone] Reason for Visit * Reason Comments Dosage Adjustment Via Phone (anticoag Cl inic) Encounter Details Date Type Department Care Team Description 04/22/2020 Anticoagulation Pharmacy, [facility] [address] [place] [address] [address] Cerebrovascular disease, arteriosclerotic, post-stroke* Allergies Active Allergy Reactions Severity Noted Date Comments Aspirin Unknown 12/12/2007 von Willebrand's disease Salicylates 03/01/2000 von Willebrand's disease documented as of this encounter (statuses as of 04/22/2020) Medications Medication Sig Dispensed Refills Start Date [...] at bedtime. 30 Tab 2 04/10/2020 Active documented as of this encounter (statuses as of 04/22/2020) Active Problems Problem Noted Date Moderate episode [...] as of this encounter (statuses as of 04/22/2020) Resolved Problems Problem Noted Date Resolved Date [...] as of this encounter (statuses as of 04/22/2020) Immunizations Name Administration Dates Next Due H1N1 [...] [facility] - 04/22/2020 1:12 PM EDT Medication Therapy Disease Management - Anticoagulation Patient: Kimberly Kendall : 1960 Current Warfarin Dose As of 04/22/2020 Warfarin maintenance plan: 15 mg (5 mg x 3) every day Patient-Reported Symptoms: INR Result As of 04/22/2020 INR goal: 2.0-3.0 INR used for dosin.98! (04/22/2020) Warfarin Plan As of 04/22/2020 Full warfarin instructions: 04/22: 50 mg; 04/23: 20 mg; Otherwise 15 mg every day Next INR check: 04/29/2020 Additional Dosing Information: Description 5mg SuTuTh, 7.5mg all other days (5mg tabs-takes in AM) Repeat PT/INR in 1 week(s) Weekly dose: not changed Abena Moralez [facility] Clinical Pharmacist 04/22/2020, 1:12 PM documented in this encounter Plan of Treatment Upcoming Encounters Date Type Specialty Care Team Description 04/24/2020 Telemedicine Psychiatry Alisha Lilly, DO [address] [facility] [place] [address] [phone] 04/29/2020 Anticoagulation Pharmacy [facility] [place] [address] [place] [address] 09/17/2020 Office Visit Family Medicine Roger Alexandra MD [address] [place] [address] [phone] Health Maintenance Due Date Last Done Comments [...] Documents on File Type Date Recorded Patient Hvac Sales Representative Expl 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 Advanced Directive
--- OUTSIDE RECORDS SUMMARY | 2023-07-25 05:15 | External Medical Summary | Summary of Care ---
Author Name Unknown Organization [place] [address] Care Team Providers Care Skid Man Name Role Phone Roger Alexandra MD Primary Care Provider [phone] Reason for Visit * Reason Comments Medication Question Encounter Details Date Type Department Care Team Description 03/28/2020 Telephone Psychiatry, [place] [address] [place] [address] Alisha Lilly, [address] [place], [place] [id number] Medication Question Allergies Active Allergy Reactions Severity [...] for Anxiety. 60 Tab 3 03/05/2020 Active escitalopram (LEXAPRO) 10 MG Tablet Take 1 Tab by mouth daily. Take 5 mg for 1 week then increase to 10 mg 30 Tab 2 03/05/2020 Active Cholestyramine Light (QUESTRAN LIGHT) 4 [...] Encounter - Alisha Lilly DO - 03/29/2020 8:35 AM EDT She should not be taking both Lexapro and Effexor-- so if she was recently prescribed Effexor by her PCP then the Lexapro should be stopped Dr. Lilly * Telephone Encounter - Alisha Lilly DO - 03/28/2020 11:17 AM EDT It looks like she is off Lexapro now and that was changed with Effexor. Please let pharmacy know tojust fill the Effexor for now. And if we can get her in for a sooner appointment that would be ideal-- Alisha * Telephone Encounter - Renata Quintana, RUFINA - 03/28/2020 10:58 AM EDT [facility] sent in by patient's PCP for Effexor. Jeni wants to know if it is okay to fill this prescription along with the Lexapro prescribed byyou. Please advise. documented in this encounter Plan of Treatment Upcoming Encounters Date Type Specialty Care Team Description 04/01/2020 Anticoagulation Pharmacy [facility] [place] [address] [place] [address] 04/01/2020 Telemedicine Psychiatry Alisha Lilly, DO [address] [place] [address] 04/24/2020 Office Visit Psychiatry Alisha Lilly, DO [address] [place], [place] [address] 09/17/2020 Office Visit Family Medicine Roger Alexandra MD [address] [facility] [place] [address] [phone] Health Maintenance Due Date Last Done Comments [...] Documents on File Type Date Recorded Patient Human Resources Compensation Analyst Expl 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 Advanced Directive
--- OUTSIDE RECORDS SUMMARY | 2023-07-25 05:15 | External Medical Summary | Summary of Care ---
Author Name Unknown Organization [place] [address] Care Team Providers Care Commercial Insurance Underwriter Name Role Phone Roger Alexandra MD Primary Care Provider [phone] Reason for Visit * Reason Comments Advice Encounter Details Date Type Department Care Team Description 04/18/2020 Telephone Family Practice [facility] [address] [place] [id number] Roger Alexandra MD [address] [facility] [place] [address] [phone] Advice Allergies Active Allergy Reactions Severity Noted Date Comments Aspirin Unknown 12/12/2007 von Willebrand's disease Salicylates 03/01/2000 von Willebrand's disease documented as of this encounter (statuses as of 04/19/2020) Medications Medication Sig Dispensed Refills Start Date [...] as of this encounter (statuses as of 04/19/2020) Active Problems Problem Noted Date Moderate episode [...] as of this encounter (statuses as of 04/19/2020) Resolved Problems Problem Noted Date Resolved Date [...] as of this encounter (statuses as of 04/19/2020) Immunizations Name Administration Dates Next Due H1N1 [...] Telephone Encounter - Alisha Lilly DO - 04/19/2020 10:19 AM EDT Called Kimberly and provided support and condolences for the passing of her . She hasn't been doing so well. She isn't sleeping at night. She hasn't been taking her coumadin pills like she should. Kimberly's granddaughter is staying with her some nights and then her son stays with her. She has acaregiver as well. Spoke on speaker phone to granddaughter and encouraged her to help with Kimberly's medication management. Also encouraged her to shower daily and eat regularly. Family in agreement with plan. We have an appointment next week * Telephone Encounter - Mau Soto OSA - 04/18/2020 12:38 PM EDT Wednesday and patient is requesting to speak with Dr. Lilly Callback: [phone] documented in this encounter Plan of Treatment Upcoming Encounters Date Type Specialty Care Team Description 04/22/2020 Laboratory Laboratory [facility] [place], Lab Processing Mobile [address] [place] [facility] [place] [address] 04/22/2020 Anticoagulation Pharmacy [facility] [place] [address] 04/24/2020 Telemedicine Psychiatry Alisha Lilly DO [address] [facility] [place] [id number] 09/17/2020 Office Visit Family Medicine Roger Alexandra MD [address] [facility] [place] [address] [phone] Health Maintenance Due Date Last Done Comments [...] Documents on File Type Date Recorded Patient Wildlife Ecology Professor Expl 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 Advanced Directive
--- OUTSIDE RECORDS SUMMARY | 2023-07-25 05:15 | External Medical Summary ---
Author Name Unknown Address [address] [facility] [place] [address] Phone Organization K0G:[facility] [address] [facility] [place] [address] Laboratory Report Ordering Provider Test Date Status STEFANI MARINELLI 04/01/2020 11:20:00 Final Observation Date Value Abnormality Reference (Units ) Status PT 04/01/2020 15:45 21.0 Above high normal 11.5- 14.6 (seconds) Final INR 04/01/2020 15:45 1.79 Above high normal 0.84- 1.14 Final Performing Location [facility] [email or web address] [address] [place] [address]
--- OUTSIDE RECORDS SUMMARY | 2023-07-25 05:15 | External Medical Summary | Summary of Care ---
Author Name Unknown Organization [place] [address] Care Team Providers Care Ecg Technician Name Role Phone Roger Alexandra MD Primary Care Provider [phone] Reason for Visit * Reason Comments Collet Maker Documentation Encounter Details Date Type Department Care Team Description 04/18/2020 Telephone Care Coordination [address] [place] [address] Solange Omer, [facility] Collet Maker Documentation Allergies Active Allergy Reactions Severity Noted [...] Telephone Encounter - Solange Omer LSW - 04/18/2020 3:45 PM EDT [facility] referral received. [facility] spoke with pt briefly as she was very emotional. Pt's friend and caregiver were present at time of call. Pt's on Wednesday. Tearful throughout conversation. Notsleeping. Does not feel Remeron and Ativan are helping much. Pt's family is alternating staying with her at night so that she is not alone. Pt requesting phone call from Dr. Lilly. Pt requesting f/ucall from [facility] next week. [facility] Clinical Technician [email or web address] [phone] documented in this encounter Plan of Treatment Upcoming Encounters Date Type Specialty Care Team Description 04/22/2020 Laboratory Laboratory Processing [place], Lab Processing Mobile [address] [place] [address] 04/22/2020 Anticoagulation Pharmacy [facility] [place] [address] [facility] [place] [address] 04/24/2020 Telemedicine Psychiatry [facility] Alisha NewmanDO [address] [place] [address] [phone] 09/17/2020 Office Visit Family Medicine Roger Alexandra MD [address] [facility] [place] [address] [phone] Health Maintenance Due Date Last Done Comments [...] Documents on File Type Date Recorded Patient Railway Signal Electrician Expl 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 Advanced Directive
--- OUTSIDE RECORDS SUMMARY | 2023-07-25 05:15 | External Medical Summary | Summary of Care ---
Author Name Unknown Organization [place] [address] Care Team Providers Care Fund Manager Name Role Phone Roger Alexandra MD Primary Care Provider [phone] Encounter Details Date Type Department Care Team Description 04/10/2020 Vault MechanicAnimal Eviscerator [facility] [address] [facility] [place] [address] Cordelia Burns, RN [address] [facility] [place] [address] [phone] COPD, severe (HCC)* Allergies Active Allergy Reactions Severity Noted [...] have Coronavirus / COVID-19? No / Unsure 04/10/2020 3:32 PM EDT documented as of this encounter Progress Notes * Cordelia Burns RN - 04/10/2020 3:33 PM EDT Case Management Assessment Is this call for a hospital, correction or rehab facility discharge to home? No S: Reports: PCP referral, patient is currently overwhelmed. Her (Pradip) is on Hospice and is was only given 2 weeks to live, reports that he is full of cancer: esophagus, lungs, liver, and stomach. She reports that he is 69 yrs. They were first when she was 15 and a 1.5 years later, and then "found each other" 30 years later and now have been for 9 years. They have children together. His sister and brother are also helping care for him. She is not alone at nightwith him. She has caregiver services as well through [facility]. Able to verbalize that she is feeling: anger, lonliness, sadness, and fear. Increased shortness of breath: cough and congestion noted on the phone, she is a smoker. reports that she is smoking at least a pack a day, sounds like it may be more right now. Audible rattle noted on the phone today. cough daily in AM, daily in PM and productive sputum clear wheezing daily dyspnea with daily activities oxygen has O2 at 3l/min, she finds herself using more now than she has been. She lost her nebulizermachine. Uses [facility] for DME. Appetite: reports taht she is not eating, has no appetite. Denies N/V. Drinking pepsi, no other fluids. Sleeping 2-3 hours per night, sleeps in bed with pillows, sleeping in the recliner gives her neck pain Pt reports that she has severe pain in her back, hip, and down her leg. Reports this has been goingon for a long time, not new or acute. Refer to PCP notes at recent visit. No narcotic dispensing. Bowel: denies problems Bladder: denies problems Medications: takes all medications as prescribed. O: Phone visit for CM assessment. Medications: takes all medications as prescribed. A: Patient Centered Prioritized Goals: Patient and caregiver demonstrate basic understanding of their disease process. Identified Barriers: currently on Hospice, Patient/caregiver's lack of understanding of their condition and prescribed treatment plan and Poor/inadequate support FUNCTIONAL STATUS: (Definition - assess ability to patient to manage their own care, includes evaluation of activities of daily living, and instrumental activities of daily living, and cognitive abilities status) ADL'S - Needs Assistance With: N/A as pt is independent IADL'S - Needs Assistance With: Grocery Shopping, Cooking food and Routine Housework Cognitive and Mental Health: alert and oriented x 3 and able to communicate, understand instructions, process information. P: Vault Mechanic Interventions: Explained/reinforced role of gearcase assembler. Encouraged to call with any issues or concerns. Gave direct phone number and contact information. COPD: Pt instructed to: -Call with increased SOB, wheezing, chest tightness, increased cough, increased sputum with change in color or consistency and fever. -Wash hands often -Drink plenty of fluids -Use inhalers as directed, do not stop or skip doses -Avoid stress -Rest when tired or SOB -Avoid triggers -Clean inhalers once a week Contact [facility] for replacement nebulizer machine. Reinforced safety education / fall prevention Reinforced medication regimen - timing / dosing / purpose PCP Notified of enrollment in CM/HM program: Yes SNP Member? No Re-evaluation of plan of care and progress towards goals achievement: Plan to referral to [facility], call patient in ~1 month to reassess and update plan of care, instructed to call Vault Mechanic or Primary Care Provider with change in symptoms or as needed before next follow-up Cordelia Burns RN (Kori), BSN, [facility] [place] Vault Mechanic [phone] documented in this encounter Plan of Treatment Upcoming Encounters Date Type Specialty Care Team Description 04/16/2020 Anticoagulation Pharmacy Helad[place], [facility] [address] [place] [address] 04/24/2020 Telemedicine Psychiatry Alisha Lilly, DO [address] [place] [address] 09/17/2020 Office Visit Family Medicine Roger Alexandra MD [address] [facility] [place] [address] [phone] Health Maintenance Due Date Last Done Comments [...] on File Type Date Recorded Patient Clerical And Administrative Workers Expl 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 Advanced Directive
--- OUTSIDE RECORDS SUMMARY | 2023-07-25 05:15 | External Medical Summary ---
Author Name Unknown Address [address] [facility] [place] [address] Phone Organization K0G:[facility] [employer] [address] [facility] [place] [address] Laboratory Report Ordering Provider Test Date Status STEFANI MARINELLI 05/09/2020 12:35:00 Final Observation Date Value Abnormality Reference (Units ) Status PT 05/09/2020 14:15 16.4 Above high normal 11.5- 14.6 (seconds) Final INR 05/09/2020 14:15 1.32 Above high normal 0.84- 1.14 Final Performing Location [facility] [employer] [address] [facility] [place] [address]
--- OUTSIDE RECORDS SUMMARY | 2023-07-25 05:16 | External Medical Summary | Summary of Care ---
Author Name Unknown Organization [facility] [place] [address] Care Team Providers Care Grader Green Meat Name Role Phone Roger Alexandra MD Primary Care Provider [phone] Reason for Visit * Reason Comments Med Request Encounter Details Date Type Department Care Team Description 03/25/2020 Telephone Psychiatry, [place] [address] [place] [address] Alisha Lilly, [address] [place] [address] Med Request Allergies Active Allergy Reactions Severity Noted Date Comments Aspirin Unknown 12/12/2007 von Willebrand's disease Salicylates 03/01/2000 von Willebrand's disease documented as of this encounter (statuses as of 03/27/2020) Medications Medication Sig Dispensed Refills Start Date [...] liquid . 210 g 3 03/05/2020 Active guaiFENesin-codei ne (ROBITUSSIN AC) 100-10 MG/5ML syrupIndications: Bronchitis, complicated Take 5 mL by mouth every 4 hours as needed for Cough. 120 mL 0 03/05/2020 0 Discontinue d(Refill) documented as of this encounter (statuses as of 03/27/2020) Active Problems Problem Noted Date Moderate episode [...] as of this encounter (statuses as of 03/27/2020) Resolved Problems Problem Noted Date Resolved Date [...] as of this encounter (statuses as of 03/27/2020) Immunizations Name Administration Dates Next Due H1N1 [...] encounter Miscellaneous Notes * Telephone Encounter - Vicki Pagan OSA - 03/27/2020 3:00 PM EDT Alisha: Looks like this didn't get routed to appts to set up for today - sorry. Would you like me to offer something else to patient? * Telephone Encounter - Alisha Lilly DO - 03/25/2020 1:19 PM EDT Please set her up for 8:00 on Wednesday for a follow up to discuss this in more detail. Looks like I have an opening then Thank you! * Telephone Encounter - Vicki Pagan OSA - 03/25/2020 12:17 PM EDT Patient calling - last seen on 02/15/20 and has a return appt scheduled for 04/24/20. Patient currently taking lexapro 10 mg once a day and Hydroxyzine 50 mg. Three times a day. Patient states this is no longer working for her and she is asking to have you increase her meds, change meds or prescribe her something else. Patient - [phone] documented in this encounter Plan of Treatment Upcoming Encounters Date Type Specialty Care Team Description 04/01/2020 Anticoagulation Pharmacy Heladio, [facility] [address] [place] [address] 04/24/2020 Office Visit Psychiatry Alisha Lilly, DO [address] [facility] [place] [address] [phone] 09/17/2020 Office Visit Family Medicine Roger Alexandra MD [address] [place] [address] [phone] Health Maintenance Due Date Last Done Comments [...] Documents on File Type Date Recorded Patient Lift Manager Expl 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 Advanced Directive
--- OUTSIDE RECORDS SUMMARY | 2023-07-25 05:16 | External Medical Summary | Summary of Care ---
Author Name Unknown Organization [place] [address] Care Team Providers Care Meat Slicer Name Role Phone Roger Alexandra MD Primary Care Provider [phone] Reason for Visit * Reason Comments Appointment Dosage Adjustment Via Phone (anticoag Cl inic) Encounter Details Date Type Department Care Team Description 03/15/2020 Anticoagulation Pharmacy, [facility] [address] [place] [address] [facility] [address] [place] [address] Cerebrovascular disease, arteriosclerotic, post-stroke* Allergies Active Allergy Reactions Severity Noted Date Comments Aspirin Unknown 12/12/2007 von Willebrand's disease Salicylates 03/01/2000 von Willebrand's disease documented as of this encounter (statuses as of 03/15/2020) Medications Medication Sig Dispensed Refills Start Date [...] 10 mg 30 Tab 2 03/05/2020 Active guaiFENesin-codein e (ROBITUSSIN AC) 100-10 MG/5ML syrupIndications:B ronchitis, complicated Take 5 mL by mouth every 4 hours as needed for Cough. 120 mL 0 03/05/2020 Active Cholestyramine Light (QUESTRAN LIGHT) 4 GM/DOSE POWDIndications:Co litis Take 1 Scoopful Dosing Unit by mouth 2 times a day. in 6oz of liquid . 210 g 3 03/05/2020 Active ciprofloxacin (CIPRO) 500 MG TabletIndications: Colitis Take 1 Tab by mouth every 12 hours for 10 days. 20 Tab 0 03/05/2020 03/15/2020 Active documented as of this encounter (statuses as of 03/15/2020) Active Problems Problem Noted Date Moderate episode [...] as of this encounter (statuses as of 03/15/2020) Resolved Problems Problem Noted Date Resolved Date [...] as of this encounter (statuses as of 03/15/2020) Immunizations Name Administration Dates Next Due H1N1 [...] have Coronavirus / COVID-19? Unable to assess 03/14/2020 7:46 AM EDT documented as of this encounter Progress Notes * Sakina Conti RPh - 03/15/2020 1:01 PM EDT [facility] received the following message: Mobile phleb tech called, states patient refused lab draw today. Patient wasn't feeling well and didn't want anyone coming in the house. Mobile phleb states if [facility] talks with patient, they would be able to do the PT/INR on Wednesday03/19/2020. Patient Phone Numbers Spoke to patient by phone. She is okay with home phleb coming on 03/19. Confirmed Coumadin dose, denies any missed doses. Will reschedule for 03/19. Sakina Conti, PharmD Clinical Pharmacist 03/15/2020, 1:04 PM * Joanna Linn OSA - 03/15/2020 11:54 AM EDT Mobile phleb tech called, states patient refused lab draw today. Patient wasn't feeling well and didn't want anyone coming in the house. Mobile phleb states if RPh talks with patient, they would be able to do the PT/INR on Wednesday03/19/2020 documented in this encounter Plan of Treatment Upcoming Encounters Date Type Specialty Care Team Description 03/19/2020 Anticoagulation Pharmacy [place], [facility] [address] [place] [address] 04/24/2020 Office Visit Psychiatry Alisha Lilly, DO [address] [facility] [place] [address] 09/17/2020 Office Visit Family Medicine Roger Alexandra MD [address] [place] [address] [phone] Health Maintenance Due Date Last Done Comments [...] 06/27/2008 *DISCUSS TOBACCO CESSATION (REFER TO SMARTSET #[id number]) 01/04/2020 *ADVANCE DIRECTIVE NOT ON FILE 03/08/2020 [...] Documents on File Type Date Recorded Patient Venetian Blind Tape Cutter Expl 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 Advanced Directive
--- OUTSIDE RECORDS SUMMARY | 2023-07-25 05:16 | External Medical Summary | Summary of Care ---
Author Name Unknown Organization [place] [address] Care Team Providers Care Take Up Operator Name Role Phone Roger Alexandra MD Primary Care Provider [phone] Reason for Visit * Reason Comments Med Request Encounter Details Date Type Department Care Team Description 03/25/2020 Telephone Psychiatry, [place] [address] [place] [address] Alisha Lilly, [address] [place] [address] Med Request Allergies Active Allergy Reactions Severity Noted Date Comments Aspirin Unknown 12/12/2007 von Willebrand's disease Salicylates 03/01/2000 von Willebrand's disease documented as of this encounter (statuses as of 03/28/2020) Medications Medication Sig Dispensed Refills Start Date [...] as of this encounter (statuses as of 03/28/2020) Active Problems Problem Noted Date Moderate episode [...] as of this encounter (statuses as of 03/28/2020) Resolved Problems Problem Noted Date Resolved Date [...] as of this encounter (statuses as of 03/28/2020) Immunizations Name Administration Dates Next Due H1N1 [...] Telephone Encounter - Vicki Pagan OSA - 03/28/2020 11:39 AM EDT Appts: Please see below and set patient up to see Dr. Marguerite Lilly * Telephone Encounter - Alisha Lilly DO - 03/28/2020 8:09 AM EDT Yes that would be great Alisha * Telephone Encounter - Vicki Pagan OSA [...] or prescribe her something else. 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
--- OUTSIDE RECORDS SUMMARY | 2023-07-25 05:16 | External Medical Summary | Summary of Care ---
Author Name Unknown Organization [place] [address] Care Team Providers Care Copy Messenger Name Role Phone Roger Alexandra MD Primary Care Provider [phone] Reason for Referral * Evaluate & Treat - Unlimited Visits (Within 30 days (routine)) Status Reason Specialty Diagnoses / Procedures Referred By Contact Referred To Contact Pending Review Specialty Services Required Pain Management Diagnoses Disc disorder of lumbar region Roger Alexandra MD [address] [place] [address] Se Longoria DO [address] [place] [address] Encounter Details Date Type Department Care Team Description 03/05/2020 Telemedicine Family Practice [facility] [address] [place] [address] Roger Alexandra MD [address] [facility] [place] [address] [phone] Colitis*; Bronchitis, complicated; Moderate episode of recurrent major depressive disorder (HCC); SIMA (generalized anxiety disorder); Disc disorder of lumbar region; Morbid obesity due to excess calories (HCC); Narcotic addiction (HCC); Von Willebrand disease (HCC); Tobacco use disorder; Idiopathic cardiomyopathy (HCC); Cerebrovascular disease, arteriosclerotic, post-stroke; Obstructive sleep apnea; COPD, severe (HCC); Oxygen dependent; Acquired hypothyroidism; 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 60 Tab 5 12/29/2019 Active guaiFENesin-codei ne (ROBITUSSIN AC) 100-10 MG/5ML syrupIndications: Bronchitis, complicated Take 5 mL by mouth every 4 hours as needed for Cough. 120 mL 0 03/05/2020 Active Cholestyramine Light (QUESTRAN LIGHT) 4 GM/DOSE POWDIndications:C olitis Take 1 Scoopful Dosing Unit by mouth 2 times a day. in 6oz of liquid . 210 g 3 03/05/2020 Active ciprofloxacin (CIPRO) 500 MG TabletIndications :Colitis Take 1 Tab by mouth every 12 hours for 10 days. 20 Tab 0 03/05/2020 0 Active hydrOXYzine HCl 25 MG tablet Take 1 Tab by mouth every 6 hours as needed for Anxiety. 40 Tab 2 01/17/2020 0 Discontinue d(Patient preference/ discontinua tion) predniSONE (DELTASONE) 20 MG Tablet Take 3 tabs for 3 days, 2 tabs for 3 days, 1 tab for 3 days, 1/2 tab for 3 days 20 Tab 0 01/30/2020 0 Discontinue d(Patient preference/ discontinua tion) documented as of this encounter (statuses as of 03/05/2020) Active Problems Problem Noted Date Moderate episode [...] as of this encounter (statuses as of 03/05/2020) Resolved Problems Problem Noted Date Resolved Date [...] as of this encounter (statuses as of 03/05/2020) Immunizations Name Administration Dates Next Due H1N1 [...] have Coronavirus / COVID-19? Unable to assess 03/05/2020 9:20 AM EDT documented as of this encounter Progress Notes * Roger Alexandra MD - 03/05/2020 12:25 PM EDT After connecting through [employer], patient was verified with two unique identifiers. Patient (or authorized legal hvac sales representative) was then informed that this was a Telemedicine visit and that the exam was being conducted confidentially over secure lines. My office door was closed. No one else was in the room with me. Patient acknowledged consent and understanding of privacy and security of the Telemedicine visit and gave permission to have a telemedicine presenter stay in the room in order to assist with the history and to conduct the exam as needed. I informed the patient that I have reviewed their record in [facility] and presented the opportunity for them to ask any questions regarding the visit today. The patient agreed to participate. SUBJECTIVE: Kimberly Kendall is a 59 year old female. CC: No chief complaint on file. There are no exam notes on file for this visit. HPI: This is a very unhealthy 59 year old obese female smoker with severe anxiety/depression, severe O2 dependent COPD, RUFINA, hx of multiple CVAs, chronic lower back pain and a further hx as below who was contacted today via telemedicine for a routine follow up. At her initial appointment with me, she was seeking opiate pain medication which I denied. I recommended an evaluation by Dr. Longoria our interventional paint laboratory technician, however she cancelled the appointment due to the COVID 19 pandemic. She has had ongoing upper respiratory symptoms with sputum production, however she is a heavysmoker so this is somewhat expected. She likely has a chronic bronchitis picture at this point. Shedid test negative for COVID-19. She had her initial visit today with Dr. Lilly (telemedicine) and I was able to review that note. She was started on Lexapro for anxiety and depression. Unfortunatelyher tendency towards substance abuse makes our treatment options somewhat limited. She states that s he feels symptoms consistent with "colitis" which she had in the past, with burning diarrhea, and now anal seepage for the past 24 hours. PHM: Patient Active Problem List Diagnosis Code jail current use of anticoagulant therapy Z79.01 [...] obesity due to excess calories (HCC) E66.01 Past Surgical History: Procedure Laterality Date COLONOSCOPY, W/BIOPSY 10/06/10 adenomatous/repeat colonoscopy in 1 yr COLONOSCOPY, W/BIOPSY 05/22/13 hyperplastic polyp EGD, FLEXIBLE, DIAGNOSTIC 02/26/2015 retained food/[facility] EGD, FLEXIBLE, W/BIOPSY 05/19/13 EGD, W/ENDOSCOPIC US 11/05/2011 UPPER GI ENDOSCOPY ENDOSCOPIC ULTRASOUND performed by BERENICE ASHBY at ENDOSCOPY [facility]; REPAIR INITIAL INGUINAL HERNIA REMOVE GALLBLADDER [...] Financial resource strain: Not on file Food insecurity: Worry: Never true Inability: Never true Transportation needs: Medical: Not on file Non-medical: Not on file Tobacco Use Smoking status: Current Every Day Smoker Packs/day: 0.25 Years: 32.00 Pack years: 8.00 Types: Cigarettes Last attempt to quit: 01/17/2015 Years since quittin.1 Smokeless tobacco: Never Used Tobacco comment: will only try with patches which are not covered by insurance Substance and Sexual Activity Alcohol use: No Drug use: No Sexual activity: Yes Partners: Male Lifestyle Physical activity: Days per week: Not on file Minutes per session: Not on file Stress: Not on file Relationships Social connections: Talks on phone: Not on file Gets together: Not on file Attends episcopalian service: Not on file Active member of club or organization: Not on file Attends meetings of clubs or organizations: Not on file Relationship status: Not on file Intimate partner violence: Fear of current or ex partner: Not on file Emotionally abused: Not on file Physically abused: Not on file Forced sexual activity: Not on file Other Topics Concern Not on file Social History Narrative Not on file Vaping/E-Cigarette Use Vaping/E-Cigarette Substances Vaping/E-Cigarette Devices Outpatient Medications Marked as Taking for the 03/05/20 encounter (Appointment) with Roger Alexandra MD Medication Sig Cholestyramine Light (QUESTRAN LIGHT) 4 GM/DOSE POWD Take 1 Scoopful Dosing Unit by mouth 2 times a day. in 6oz of liquid . ciprofloxacin (CIPRO) 500 MG Tablet Take 1 Tab by mouth every 12 hours for 10 days. guaiFENesin-codeine (ROBITUSSIN AC) 100-10 MG/5ML syrup Take 5 mL by mouth every 4 hours as needed for Cough. Review of patient's allergies indicates: Allergen Reactions Aspirin Unknown von Willebrand's disease Salicylates von Willebrand's disease Extensive ROS Constitutional (f/c/wt/vision/hearing): Negative Resp (cough/sob/bundy): + cough with yellow sputum production (tested negative for COVID 19 recently --- continues to smoke) CV (cp/palp/fluttering/diaphoresis/bundy/pnd):Negative GI (n/v/d/hrtburn): + diarrhea/loose stools and anal leakage Endo (hair/cold or heat intol/ 3 p's): Negative Neuro (shaking/weak/fatigu/parasthesi/): Negative Skin (rash/easy bruis/xerosis): Negative Psy (si/hi/halluc/): + depression/anxiety (nocturia/hesit/drib/sexual review): Negative Lymph (swollen glands/b sx's/: Negative Msk: chronic lower back pain OBJECTIVE: There were no vitals taken for this visit. Patient appeared calm, in no distress on camera (no further exam) ASSESSMENT/PLAN: Diagnoses and all orders for this visit: Colitis - Cholestyramine Light (QUESTRAN LIGHT) 4 GM/DOSE POWD; Take 1 Scoopful Dosing Unit by mouth 2 times a day. in 6oz of liquid . - ciprofloxacin (CIPRO) 500 MG Tablet; Take 1 Tab by mouth every 12 hours for 10 days. Bronchitis, complicated - guaiFENesin-codeine (ROBITUSSIN AC) 100-10 MG/5ML syrup; Take 5 mL by mouth every 4 hours as needed for Cough. Moderate episode of recurrent major depressive disorder (HCC) -telemedicine appointment completed earlier today with Dr. Lilly -she was started on Lexapro SIMA (generalized anxiety disorder) -see above Disc disorder of lumbar region -still needs to get established with Dr. Longoria which has been delayed due to the COVID pandemic Morbid obesity due to excess calories (HCC) -very inactive and heavy smoker -not very motivated to start an active/heathy lifestyle at present -hopefully this changes if/when her Lexapro takes effect Narcotic addiction (HCC) -will continue to avoid narcotic pain medication with this patient -she was discharged from her pain clinic -hopefully Dr. 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 therapy -coumadin for hx of multiple CVAs RTO in 6 months or prn Roger Alexandra MD documented in this encounter Plan of Treatment Upcoming Encounters Date Type Specialty Care Team Description 03/06/2020 Laboratory Laboratory Processing [place], Lab Processing Mobile [address], [place] [id number] 03/07/2020 Anticoagulation Pharmacy [address] [address] 04/24/2020 Office Visit Psychiatry Alisha Lilly, [address] [place] [address] Scheduled Referrals Name Type Priority Associated Diagnoses Orde r Schedule PAIN MEDICINE REFERRAL OP Referral Within 30 days (routine) Disc disorder of lumbar region Ordered: 03/05/2020 Health Maintenance Due Date Last Done Comments Zoster Vaccines (1 of 2) 2010 *DEPRESSION SCREENING,ANNUAL FOR PTS 12 AND OVER 04/11/2015 *O2 ASSESSMENT COMPLETED IN PAST YEAR FOR COPD 09/07/2016 BREAST CANCER SCREENING DISCUSSION YEARLY AGES 40-75 10/28/2016 10/28/2015, 04/27/2014, 05/12/2013, Additional history exists COLONOSCOPY-EVERY 5 YRS AGES 18-100 05/22/2018 05/22/2013, 08/21/2011, 10/06/2010 DTaP,Tdap,and Td Vaccines (2 - Td) 06/27/2018 06/27/2008 Influenza Vaccine (FLU shot) (#1) 2019 08/21/2015, 08/01/2014, 08/09/2013, Additional history exists *DISCUSS TOBACCO CESSATION (REFER TO SMARTSET #[id number]) [...] as of this encounter Visit Diagnoses Diagnosis Colitis- Primary Other and unspecified noninfectious gastroenteritis and colitis Bronchitis, complicated Bronchitis, not specified as acute or chronic Moderate episode of recurrent major depressive disorder (HCC) SIMA (generalized anxiety disorder) Generalized anxiety disorder Disc disorder of lumbar region Other and unspecified disc disorder of lumbar region Morbid obesity due to excess calories (HCC) Narcotic addiction (HCC) Unspecified drug dependence, unspecified Von Willebrand disease (HCC) Von Willebrand's disease Tobacco use disorder Idiopathic cardiomyopathy (HCC) Other primary cardiomyopathies Cerebrovascular disease, arteriosclerotic, post-stroke Cerebral atherosclerosis Obstructive sleep apnea Obstructive sleep apnea (adult) (pediatric) COPD, severe (HCC) Chronic airway obstruction, not elsewhere classified Oxygen dependent Dependence on supplemental oxygen Acquired hypothyroidism Unspecified hypothyroidism intermediate manager 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
--- OUTSIDE RECORDS SUMMARY | 2023-07-25 05:16 | External Medical Summary | Summary of Care ---
Author Name Unknown Organization [place] [address] Care Team Providers Care Wallpaper Inspector And Shipper Name Role Phone Roger Alexandra MD Primary Care Provider [phone] Reason for Visit * Reason Comments Med Request Encounter Details Date Type Department Care Team Description 03/25/2020 Telephone Psychiatry, [place] [address] [place] [address] Alisha Lilly, [address] [place], [place] [id number] Med Request Allergies Active Allergy Reactions Severity Noted Date Comments Aspirin Unknown 12/12/2007 von Willebrand's disease Salicylates 03/01/2000 von Willebrand's disease documented as of this encounter (statuses as of 03/25/2020) Medications Medication Sig Dispensed Refills Start Date [...] liquid . 210 g 3 03/05/2020 Active documented as of this encounter (statuses as of 03/25/2020) Active Problems Problem Noted Date Moderate episode [...] as of this encounter (statuses as of 03/25/2020) Resolved Problems Problem Noted Date Resolved Date [...] as of this encounter (statuses as of 03/25/2020) Immunizations Name Administration Dates Next Due H1N1 [...] have Coronavirus / COVID-19? No / Unsure 03/22/2020 9:02 AM EDT documented as of this encounter [...] or prescribe her something else. Patient - [phone] documented in this encounter Plan of Treatment Upcoming Encounters Date Type Specialty Care Team Description 03/26/2020 Laboratory Laboratory Processing [place], Lab Processing Mobile [address] [facility] [place] [address] 03/26/2020 Anticoagulation Pharmacy [facility] [place] [address] [facility] [place] [address] 03/26/2020 Office Visit Family Medicine Roger Alexandra MD [address] [place] [address] [phone] 04/24/2020 Office Visit Psychiatry Alisha Lilly, DO [address] [facility] [place] [address] [phone] 09/17/2020 Office Visit Family Medicine Roger Alexandra MD [address] [facility] [place] [address] [phone] Health Maintenance Due Date Last Done Comments [...] Documents on File Type Date Recorded Patient Heat And Frost Insulator Expl 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 Advanced Directive
--- OUTSIDE RECORDS SUMMARY | 2023-07-25 05:16 | External Medical Summary ---
Author Name Unknown Address [address] [facility] [place] [address] Phone Organization K0G:[facility] [employer] [address] [facility] [place] [address] Laboratory Report Ordering Provider Test Date Status STEFANI MARINELLI 03/26/2020 10:30:00 Final Observation Date Value Abnormality Reference (Units ) Status PT 03/26/2020 16:53 15.7 Above high normal 11.5- 14.6 (seconds) Final INR 03/26/2020 16:53 1.25 Above high normal 0.84- 1.14 Final Performing Location [facility] [employer] [address] [place] [address]
--- OUTSIDE RECORDS SUMMARY | 2023-07-25 05:16 | External Medical Summary | Summary of Care ---
Author Name Unknown Organization [place] [address] Care Team Providers Care Finishing Operator Name Role Phone Roger Alexandra MD Primary Care Provider [phone] Encounter Details Date Type Department Care Team Description 02/20/2020 Telephone Pharmacy, [facility] [address] [place] [address] [facility] [address] [place] [address] Allergies Active Allergy Reactions Severity Noted Date Comments Aspirin Unknown 12/12/2007 von Willebrand's disease Salicylates 03/01/2000 von Willebrand's disease documented as of this encounter (statuses as of 03/14/2020) Medications Medication Sig Dispensed Refills Start Date [...] anticoagulation pharmacist. 60 Tab 5 12/29/2019 Active documented as of this encounter (statuses as of 03/14/2020) Active Problems Problem Noted Date Moderate episode [...] as of this encounter (statuses as of 03/14/2020) Resolved Problems Problem Noted Date Resolved Date [...] as of this encounter (statuses as of 03/14/2020) Immunizations Name Administration Dates Next Due H1N1 [...] Miscellaneous Notes * Telephone Encounter - Abena Moralez RP - 02/20/2020 12:37 PM EDT Patient Phone Numbers Spoke to patient via phone. As her COVID test results are not back taken on 02/15 with 10 day turn around. At this time, will r/s [facility] home phleb to 02/27 with hope COVID is back and negative, if COVID test is positive will have to avoid any nurse contact for 14 days. Abena Moralez, Pharm D Clinical Pharmacist 02/20/2020, 12:38 PM * Telephone Encounter - Christine Camejo OSA - 02/20/2020 12:15 PM EDT Patient Phone Numbers Patient calling because she has recently been tested for covid-19. Has not received results yet. Isscheduled for mobile phlebotomy 02/21/20. Is wondering what she should do. Please call patient to discuss. documented in this encounter Plan of Treatment Upcoming Encounters Date Type Specialty Care Team Description 03/15/2020 Laboratory Laboratory Processing [place], Lab Processing Mobile [address] [place] [address] 03/15/2020 Telemedicine Pain Management Se Longoria, [address] [place] [address] [phone] 03/15/2020 Anticoagulation Pharmacy [place], [facility] [place] [address] [place] [address] 04/24/2020 Office Visit Psychiatry Alisha Lilly DO [address] [place] [address] [phone] 09/17/2020 Office Visit Family Medicine Roger Alexandra MD [address] [place] [address] [phone] Health Maintenance Due Date Last Done Comments [...] on File Type Date Recorded Patient Assistant Signal Maintainer Expl 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 Advanced Directive
--- OUTSIDE RECORDS SUMMARY | 2023-07-25 05:16 | External Medical Summary | Summary of Care ---
Author Name Unknown Organization [place] [address] Care Team Providers Care Press Tender Long Goods Name Role Phone Roger Alexandra MD Primary Care Provider [phone] Reason for Visit * Reason Comments Appointment Encounter Details Date Type Department Care Team Description 03/06/2020 Telephone Family Practice [facility] [address] [place] [address] Roger Alexandra MD [address] [facility] [place] [address] [phone] Appointment Allergies Active Allergy Reactions Severity Noted Date Comments Aspirin Unknown 12/12/2007 von Willebrand's disease Salicylates 03/01/2000 von Willebrand's disease documented as of this encounter (statuses as of 03/08/2020) Medications Medication Sig Dispensed Refills Start Date [...] as of this encounter (statuses as of 03/08/2020) Active Problems Problem Noted Date Moderate episode [...] severe 04/06/2007 SIMA (generalized anxiety disorder) 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 No / Unsure 03/07/2020 1:35 PM EDT documented as of this encounter Miscellaneous Notes * Telephone Encounter - Saray Mendez LPN - 03/07/2020 1:10 PM EDT Patient scheduled for [facility] appointment on March 15 at 9am. * Telephone Encounter - Berna Beckett OSA - 03/06/2020 8:10 AM EDT Referral placed for patient to see pain management. 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] documented in this encounter Plan of Treatment Upcoming Encounters Date Type Specialty Care Team Description 03/11/2020 Laboratory Laboratory Processing [place], Lab Processing Mobile [address] [facility] [place] [id number] 03/11/2020 Anticoagulation Pharmacy [facility] [place] [address] [place] [address] 03/15/2020 Telemedicine Pain Management Se Longoria DO [address] [place] [address] [phone] 04/24/2020 Office Visit Psychiatry [facility] Alisha Paty, DO [address] [facility] [place] [address] [phone] 09/17/2020 Office Visit Family Medicine [facility] [place] [address] [phone] Health Maintenance Due Date Last Done Comments [...] Documents on File Type Date Recorded 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
--- OUTSIDE RECORDS SUMMARY | 2023-07-25 05:16 | External Medical Summary | Summary of Care ---
Author Name Unknown Organization [place] [address] Care Team Providers Care Community Nurse Name Role Phone Roger Alexandra MD Primary Care Provider [phone] Reason for Visit * Reason Comments Dosage Adjustment Via Phone (anticoag Cl inic) Encounter Details Date Type Department Care Team Description 03/11/2020 Anticoagulation Pharmacy, [facility] [address] [place] [address] [address] Cerebrovascular disease, arteriosclerotic, post-stroke* Allergies Active Allergy Reactions Severity Noted Date Comments Aspirin Unknown 12/12/2007 von Willebrand's disease Salicylates 03/01/2000 von Willebrand's disease documented as of this encounter (statuses as of 03/11/2020) Medications Medication Sig Dispensed Refills Start Date [...] as of this encounter (statuses as of 03/11/2020) Active Problems Problem Noted Date Moderate episode [...] as of this encounter (statuses as of 03/11/2020) Resolved Problems Problem Noted Date Resolved Date [...] as of this encounter (statuses as of 03/11/2020) Immunizations Name Administration Dates Next Due H1N1 [...] this encounter Progress Notes * Abena Moralez, [facility] - 03/11/2020 1:14 PM EDT Medication Therapy Disease Management - Anticoagulation Patient: Kimberly Barillassher : 1960 Contacts Type Contact Phone 03/11/2020 01:12 PM Phone (Outgoing) Kimberly Kendall (Self) [phone] (H) Current Warfarin Dose As of 03/11/2020 Warfarin maintenance plan: 10 mg (5 mg x 2) every Mon, Wed, Fri; 5 mg (5 mg x 1) all other days Patient-Reported Symptoms: INR Result As of 03/11/2020 INR goal: 2.0-3.0 INR used for dosin.48! (03/11/2020) Warfarin Plan As of 03/11/2020 Full warfarin instructions: 03/12: 10 mg; Otherwise 10 mg every Mon, Wed, Fri; 5 mg all other days Next INR check: 03/15/2020 Additional Dosing Information: Description 5mg SuTuTh, 7.5mg all other days (5mg tabs-takes in AM) Repeat PT/INR in 4 day(s) Weekly dose: not changed Abena Moralez [facility] Clinical Pharmacist 03/11/2020, 1:14 PM documented in this encounter Plan of Treatment Upcoming Encounters Date Type Specialty Care Team Description 03/15/2020 Telemedicine Pain Management Se Longoria, DO [address] [place] [address] [phone] 04/24/2020 Office Visit Psychiatry Alisha Lilly, [facility] [address] [facility] [address] 09/17/2020 Office Visit Family Medicine Roger Alexandra MD [address] [place] [address] [phone] Health Maintenance Due Date Last Done Comments [...] Documents on File Type Date Recorded Patient Organic Gardening Teacher Expl 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 Advanced Directive
--- OUTSIDE RECORDS SUMMARY | 2023-07-25 05:16 | External Medical Summary | Summary of Care ---
Author Name Unknown Organization [place] [address] Care Team Providers Care Laboratory Equipment Cleaner Name Role Phone Roger Alexandra MD Primary Care Provider [phone] Reason for Visit * Reason Comments Dosage Adjustment Via Phone (anticoag Cl inic) Encounter Details Date Type Department Care Team Description 03/07/2020 Anticoagulation Pharmacy, [facility] [address] [place] [address] [address] Cerebrovascular disease, arteriosclerotic, post-stroke* Allergies Active Allergy Reactions Severity Noted Date Comments Aspirin Unknown 12/12/2007 von Willebrand's disease Salicylates 03/01/2000 von Willebrand's disease documented as of this encounter (statuses as of 03/06/2020) Medications Medication Sig Dispensed Refills Start Date [...] as of this encounter (statuses as of 03/06/2020) Active Problems Problem Noted Date Moderate episode [...] as of this encounter (statuses as of 03/06/2020) Resolved Problems Problem Noted Date Resolved Date [...] as of this encounter (statuses as of 03/06/2020) Immunizations Name Administration Dates Next Due H1N1 [...] have Coronavirus / COVID-19? Unable to assess 03/06/2020 10:41 AM EDT documented as of this encounter Progress Notes * Abena Moralez, [facility] - 03/06/2020 11:44 AM EDT Medication Therapy Disease Management - Anticoagulation Patient: Kimberly Kendall : 1960 Current Warfarin Dose As of 03/07/2020 Warfarin maintenance plan: 10 mg (5 mg x 2) every Mon, Wed, Fri; 5 mg (5 mg x 1) all other days Patient-Reported Symptoms: Patient Findings Negatives: Signs/symptoms of thrombosis, Signs/symptoms of bleeding, Change in health, Change in alcohol use, Change in activity, Upcoming invasive procedure, Missed doses, Extra doses, Change in medications, Change in diet/appetite, Bruising INR Result As of 03/07/2020 INR goal: 2.0-3.0 INR used for dosin.99! (03/06/2020) Warfarin Plan As of 03/07/2020 Full warfarin instructions: 03/07: 15 mg; 03/10: 10 mg; Otherwise 10 mg every Mon, Wed, Fri; 5 mg allother days Next INR check: 03/11/2020 Additional Dosing Information: Description 5mg SuTuTh, 7.5mg all other days (5mg tabs-takes in AM) Repeat PT/INR in 5 day(s) at [facility] Weekly dose: not changed Abena Moralez [facility] Clinical Pharmacist 03/06/2020, 11:44 AM documented in this encounter Plan of Treatment Upcoming Encounters Date Type Specialty Care Team Description 03/06/2020 Laboratory Laboratory [facility] [place], [facility] [address] [place] [address] 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) use of anticoagulants* 04/24/2020 Office Visit Psychiatry Alisha Lilly DO [address] [place] [address] 09/17/2020 Office Visit Family Medicine Roger Alexandra MD [address] [facility] [place] [phone] Health Maintenance Due Date Last Done Comments [...] on File Type Date Recorded Patient Pin Chaser Expl 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 Advanced Directive
--- OUTSIDE RECORDS SUMMARY | 2023-07-25 05:16 | External Medical Summary | Summary of Care ---
Author Name Unknown Organization [place] [address] Care Team Providers Care Loading Unit Operator Name Role Phone Roger Alexandra MD Primary Care Provider [phone] Reason for Visit * Reason Comments Dosage Adjustment Via Phone (anticoag Cl inic) Encounter Details Date Type Department Care Team Description 03/27/2020 Anticoagulation Pharmacy, [facility] [address] [place] [address] [address] Cerebrovascular disease, arteriosclerotic, post-stroke* Allergies Active Allergy [...] this encounter Progress Notes * Abena Moralez, [facility] - 03/27/2020 8:46 AM EDT Medication Therapy Disease Management - Anticoagulation Patient: Kimberly Barillassher : 1960 Current Warfarin Dose As of 03/27/2020 Warfarin maintenance plan: 5 mg (5 mg x 1) every Sun, [place]; 10 mg (5 mg x 2) all other days Patient-Reported Symptoms: INR Result As of 03/27/2020 INR goal: 2.0-3.0 INR used for dosin.25! (03/26/2020) Warfarin Plan As of 03/27/2020 Full warfarin instructions: 03/27: 15 mg; 03/28: 15 mg; 03/29: 15 mg; 03/31: 15 mg; Otherwise 5 mg every Sun, [place]; 10 mg all other days Next INR check: 04/01/2020 Additional Dosing Information: Description 5mg SuTuTh, 7.5mg all other days (5mg tabs-takes in AM) Repeat PT/INR in 5 day(s) Weekly dose: not changed Abena Moralez [facility] Clinical Pharmacist 03/27/2020, 8:47 AM documented in this encounter Plan of Treatment Upcoming Encounters Date Type Specialty Care Team Description 04/24/2020 Office Visit Psychiatry Alisha Lilly, DO [address] [facility] [place] [address] 09/17/2020 Office Visit [...] on File Type Date Recorded Patient Chief Quality Officer Expl 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 Advanced Directive
--- OUTSIDE RECORDS SUMMARY | 2023-07-25 05:16 | External Medical Summary | Summary of Care ---
Author Name Unknown Organization [place] [address] Care Team Providers Care Decal Decorator Name Role Phone Roger Alexandra MD Primary Care Provider [phone] Reason for Visit * Reason Comments Medication Question Encounter Details Date Type Department Care Team Description 03/28/2020 Telephone Psychiatry, [place] [address] [place] [address] Alisha Lilly, [address] [place], [place] [id number] Medication Question Allergies Active Allergy Reactions Severity [...] ideal-- Alisha * Telephone Encounter - Renata Quintana OSA - 03/28/2020 10:58 AM EDT Jeni from [facility] is calling regarding a prescription sent in by patient's PCP for Effexor. Jeni wants to know if it is okay to fill this prescription along with the Lexapro prescribed byyou. Please advise. 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
--- OUTSIDE RECORDS SUMMARY | 2023-07-25 05:16 | External Medical Summary | Summary of Care ---
Author Name Unknown Organization [place] [address] Care Team Providers Care Oncology Specialist Name Role Phone Roger Alexandra MD Primary Care Provider [phone] Reason for Visit * Reason Comments Med Request Encounter Details Date Type Department Care Team Description 03/25/2020 Telephone Psychiatry, [place] [address] [place] [address] Alisha Lilly, [address] [place] [address] Med Request Allergies Active Allergy [...] Miscellaneous Notes * Telephone Encounter - Maggie Shah OSA - 03/28/2020 12:01 PM EDT I called this patient and she has been scheduled. * Telephone Encounter - Vicki Pagan OSA [...] or prescribe her something else. Patient - [phone] documented in this encounter Plan of Treatment Upcoming Encounters Date Type Specialty Care Team Description 04/01/2020 Anticoagulation Pharmacy [place], [facility] [place] [address] [place] [address] 04/01/2020 Telemedicine Psychiatry Alisha Lilly DO [address] [place] [address] 04/24/2020 Office Visit Psychiatry Alisha Lilly DO [address] [place] [address] 09/17/2020 Office Visit Family Medicine Roger Alexandra MD [address] [place] [address] [phone] Health Maintenance Due Date Last Done Comments [...] Documents on File Type Date Recorded Patient Web Services Manager Expl 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 Advanced Directive
--- OUTSIDE RECORDS SUMMARY | 2023-07-25 05:16 | External Medical Summary | Summary of Care ---
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 Name Role Phone Roger Alexandra MD Primary Care Provider [phone] Reason for Visit * Reason Comments Back Pain Leg Pain Encounter Details Date Type Department Care Team Description 03/15/2020 Telemedicine Interventional Pain Center, [facility] [address] [place] [address] Cousins, Se Lu, [address] [place] [address] Hip pain, left* Allergies Active Allergy Reactions Severity Noted Date [...] as of this encounter Progress Notes * YonathanmajoSe Aly, DO - 03/15/2020 9:11 AM EDT GENERAL HISTORY & PHYSICAL EXAMINATION - Anesthesia and Pain Service Name: Kimberly Kendall Location: [facility], [facility] REFERRING PHYSICIAN: Roger Alexandra MD Thank you for referring Kimberly Kendall. CHIEF COMPLAINT: Left hip/leg pain HPI: Kimberly Kendall is a 59 year old female who scheduled telephonic medicine encounter.Afterconnecting to the patient via telephone, the patient was identified by name and date of . Patient was then informed that this was a telephone call only visit. The patient agreed to participate. She relates a greater than 15 year history of chronic pain in the left hip and leg. She does acknowledge some low back pain as well. She denies preceding trauma or other initiating event. There is noclear bowel or bladder dysfunction or lower extremity motor weakness. She states that the pain is worse around the left hip although she can get extension below the knee at times. 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 She acknowledges being seen in the pain clinic at [place] last year and had been utilizing chronic opiates in the form of hydrocodone. She was also seeing a psychiatrist who she indicates was interested in her obtaining a medical marijuana card. She did obtain certification and started therapy and when she acknowledged this to the pain clinic she states that following urine drug screen, she was weaned from her Vicodin. I do not have records to substantiate this story. She has not had any treatment an last the 6 months or so and was scheduled to see me in the office 2 and half months ago but canceled. Last imaging I can see is from 2014 in did show moderate R Duran Sarsshik arthritic change of the hip. I can find no lumbar spine films. There has been no lumbar spine MRI. She has a rather complicated medical history with severe COPD that is oxygen dependent as well as multiple strokes necessitating anticoagulation with warfarin. PAST MEDICAL HISTORY: Past Medical History: Diagnosis Date Back disorder Benign neoplasm of colon 10/06/10 adenomatous/repeat colonoscopy in 1 yr COPD, mild (HCC) 04/06/2007 COPD, severe (HCC) 04/06/2007 Depressive disorder, not elsewhere classified Generalized osteoarthritis Hyperplastic colonic polyp Hypothyroidism 04/16/2015 Malaise and fatigue Mixed dyslipidemia Moderate episode of recurrent major depressive disorder (HCC) 03/05/2020 Morbid obesity due to excess calories ([facility]) 03/05/2020 Narcotic addiction (HCC) 10/04/2014 Oxygen dependent 12/29/2019 Patent foramen ovale Schizoaffective disorder, chronic condition ([facility]) followed Dr Robby Diego [facility] Sequelae, post-stroke CVA Status asthmaticus Von Willebrand's disease (HCC) PAST SURGICAL HISTORY: Past Surgical History: Procedure Laterality Date COLONOSCOPY, W/BIOPSY 10/06/10 adenomatous/repeat colonoscopy in 1 yr COLONOSCOPY, W/BIOPSY 05/22/13 hyperplastic polyp EGD, FLEXIBLE, DIAGNOSTIC 02/26/2015 retained food/[facility] EGD, FLEXIBLE, W/BIOPSY 05/19/13 EGD, W/ENDOSCOPIC US 11/05/2011 UPPER GI ENDOSCOPY ENDOSCOPIC ULTRASOUND performed by BERENICE ASHBY at [facility]; REPAIR INITIAL INGUINAL HERNIA REMOVE GALLBLADDER TOTAL HYSTERECTOMY and bso FAMILY HISTORY: Family History Problem Relation Age of Onset Lung Disorder Mother copd Other (hepatitis) Mother Heart Disorder Father age 55 mu Mental Disorder Father schizophrenia Asthma Father Other (Other) Sister from sleep apnea Neurological Disorder Sister MR and epilepsy Other (Other) Son 2 sons von willebrand Other (Other) Daughter asd SOCIAL HISTORY: Social History Tobacco Use Smoking status: Current Every Day Smoker Packs/day: 0.25 Years: 32.00 Pack years: 8.00 Types: Cigarettes Last attempt to quit: 01/17/2015 Years since quittin.1 Smokeless tobacco: Never Used Tobacco comment: will only try with patches which are not covered by insurance Substance Use Topics Alcohol use: No Drug use: No CURRENT MEDICATIONS: Note that discontinued and completed medications (per the MAR) continue to display for 24 hours. Ordered medications to be given in the future also display. Current Outpatient Medications Medication Sig Dispense Refill Cholestyramine Light (QUESTRAN LIGHT) 4 GM/DOSE POWD Take 1 Scoopful Dosing Unit by mouth 2 times aday. in 6oz of liquid . 210 g 3 ciprofloxacin (CIPRO) 500 MG Tablet Take 1 Tab by mouth every 12 hours for 10 days. 20 Tab 0 escitalopram (LEXAPRO) 10 MG Tablet Take 1 Tab by mouth daily. Take 5 mg for 1 week then increase to 10 mg 30 Tab 2 guaiFENesin-codeine (ROBITUSSIN AC) 100-10 MG/5ML syrup Take 5 mL by mouth every 4 hours as needed for Cough. 120 mL 0 hydrOXYzine HCl 50 MG Tablet Take 1 [...] the day as needed and at bedtime ALLERGIES: Aspirin and Salicylates ROS: Constitutional: Negative for fatigue, fever, appetite change, unexplained weight loss, insomnia. Eyes: Negative for abnormal vision, dryness, pain. ENT: Negative for hearing loss, tinnitus, vertigo, dizziness, sore throat, dysphagia. Respiratory: Positive for shortness of breath, dyspnea. Musculoskeletal:Positive for low back/left hip/leg pain Neurological: Negative for headaches, fainting, seizures. Psychiatric: Positive for anxiety, depression, Negative for hallucinations, suicidal thoughts. Genitourinary: Negative for dysuria, urinary frequency, urinary urgency,hematuria. Hematologic/ Lymphatic: Negative for easy bleeding, bruising, lymphadenopathy. Gastrointestinal: Negative for abdominal pain, nausea, vomiting, constipation, diarrhea, cramping, heart burn, fecal incontinence. Cardiovascular: Negative for chest pain, palpitations, ankle swelling, orthopnea. PHYSICAL EXAMINATION: Most Recent Vital Signs: There were no vitals filed for this visit. IMAGING: EXAM Left hip -08/21/2015 12:15 PM HISTORY left hip pain- no known injury, pain x 1 yr, radiating down leg COMPARISON HIPS, BILATERAL MINIMUM 2 VIEWS EACH HIP dated 10/22/2014 TECHNIQUE Two views FINDINGS Moderate left hip osteoarthritis, stable. Enthesophyte greater trochanter, stable. Calcifications in the pelvis, nonspecific but stability suggests these are phleboliths. IMPRESSION Moderate left hip osteoarthritis, stable ASSESSMENT: Left hip pain with OA Possible lumbar radicular pain PLAN: Its difficult to evaluate her adequately with the current telephone interview only. I need to examine her in the office and also determine what updated imaging may be necessary. In light of her significant comorbidities, I would delay this probably for the next several months until the current pandemic is under better control. She will be contacted in regard to appropriate office evaluation. 22 minute visit for chart review, discussion, documentation Se Longoria DO 03/15/2020 documented in this encounter Plan of Treatment Upcoming Encounters Date Type Specialty Care Team Description 03/15/2020 Anticoagulation Pharmacy [facility] [address] [place] [address] 04/24/2020 Office Visit Psychiatry Alisha Lilyl [facility] [address] [facility] [address] 09/17/2020 Office Visit Family Medicine Roger Alexandra MD [address] [place] [address] [phone] Health Maintenance Due Date Last Done Comments [...] Pain in joint, pelvic region and thigh documented in this encounter Advance Directives Documents on File Type Date Recorded Patient Quality Liaison Expl 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 Advanced Directive
--- OUTSIDE RECORDS SUMMARY | 2023-07-25 05:16 | External Medical Summary ---
Author Name Unknown Address [address] [facility] [place] [address] Phone Organization [facility] [employer] [address] [facility] [place] [address] Laboratory Report Ordering Provider Test Date Status VINAY CHEW 03/11/2020 08:30:00 Final Observation Date Value Abnormality Reference (Units ) Status PT 03/11/2020 10:54 18.1 Above high normal 11.5- 14.6 (seconds) Final INR 03/11/2020 10:54 1.48 Above high normal 0.84- 1.14 Final Performing Location [facility] [address] [email or web address] [address]
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
--- OUTSIDE RECORDS SUMMARY | 2023-07-25 05:16 | External Medical Summary | Summary of Care ---
Author Name Unknown Organization [place] [address] Care Team Providers Care Hot Saw Helper Name Role Phone Roger Alexandra MD Primary Care Provider [phone] Reason for Visit * Reason Comments Referral Encounter Details Date Type Department Care Team Description 03/21/2020 Telephone Family Practice [facility] [address] [facility] [place] [address] Roger Alexandra MD [address] [facility] [place] [address] [phone] Referral Allergies Active Allergy Reactions Severity Noted Date Comments Aspirin Unknown 12/12/2007 von Willebrand's disease Salicylates 03/01/2000 von Willebrand's disease documented as of this encounter (statuses as of 03/22/2020) Medications Medication Sig Dispensed Refills Start Date [...] as of this encounter (statuses as of 03/22/2020) Active Problems Problem Noted Date Moderate episode [...] 04/06/2007 SIMA (generalized anxiety disorder) 02/08 intermediate designer current use of anticoagulant t herapy 06/01/2005 Overview: ICD-10 update of inactive term Tobacco use disorder documented as of this encounter (statuses as of 03/22/2020) Resolved Problems Problem Noted Date Resolved Date [...] as of this encounter (statuses as of 03/22/2020) Immunizations Name Administration Dates Next Due H1N1 [...] Telephone Encounter - Haley Dejesus LPN - 03/22/2020 9:00 AM EDT Offered patient weekend clinic appt. Pt declines. Patient states that she is having wheezing, asthma and CoPD, Waking at night SOB and will have to readjust her oxygen. Patient is also having increased anxiety. Patient was tested for covid-19- neg. Patient is scheduled for Tuesday 03/27 * Telephone Encounter - Kim Boykin PA-C - 03/21/2020 6:[address] Alexandra is out of the office until Sunday 03/25 and he will be able to address anything chronic at that time. Appears that psychiatry (Dr Lilly) is managing her psychiatric medication at this time, she may reach out to her regarding her anxiety. In regards to her breathing, what exactly is she having? New cough? Fever? Body aches? If any should have COVID screening. Otherwise offer visit, can have face to face if need, I don't believe there are openings in office tomorrow unless telemed. I believe we have Sat clinic hours as well. * Telephone Encounter - Marisa Walters LPN - 03/21/2020 5:29 PM EDT I returned a call to pt she states that she is having uncontrollable Issues with her bladder. Pt states she was put on medication for anxiety and it is not working. She is also stating that her breathing is getting worse. Please advised if pt should have a face to face. D/t breathing issues. Offered telephonic call she states she just had one. * Telephone Encounter - Cara Griggs OSA - 03/21/2020 3:36 PM EDT Pt calling stating that she's been having trouble with her bladder it is sometimes hard for her to urinate so she was wondering if could put in a referral for her to be seen by an urologist.If any questions or concern she could be reached at [phone]. documented in this encounter Plan of Treatment Upcoming Encounters Date Type Specialty Care Team Description 03/26/2020 Anticoagulation Pharmacy [facility] [address] [facility] [place] [address] 03/26/2020 Office Visit Family Medicine Roger Alexandra MD [address] [place] [address] [phone] 04/24/2020 Office Visit Psychiatry Alisha Lilly, DO [address], [place] [id number] 09/17/2020 Office Visit Family Medicine Roger Alexandra MD [address] [facility] [place] [address] Health Maintenance Due [...] Documents on File Type Date Recorded 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
--- OUTSIDE RECORDS SUMMARY | 2023-07-25 05:16 | External Medical Summary | Summary of Care ---
Author Name Unknown Organization [place] [address] Care Team Providers Care Rand Maker Name Role Phone Roger Alexandra MD Primary Care Provider [phone] Reason for Visit * Reason Comments Dosage Adjustment Via Phone (anticoag Cl inic) Encounter Details Date Type Department Care Team Description 03/19/2020 Anticoagulation Pharmacy, [facility] [address] [place] [address] [address] Cerebrovascular disease, arteriosclerotic, post-stroke* Allergies Active Allergy Reactions Severity Noted Date Comments Aspirin Unknown 12/12/2007 von Willebrand's disease Salicylates 03/01/2000 von Willebrand's disease documented as of this encounter (statuses as of 03/19/2020) Medications Medication Sig Dispensed Refills Start Date [...] as of this encounter (statuses as of 03/19/2020) Active Problems Problem Noted Date Moderate episode [...] as of this encounter (statuses as of 03/19/2020) Resolved Problems Problem Noted Date Resolved Date [...] as of this encounter (statuses as of 03/19/2020) Immunizations Name Administration Dates Next Due H1N1 [...] have Coronavirus / COVID-19? Unable to assess 03/19/2020 12:58 AM EDT documented as of this encounter Progress Notes * Abena Moralez RPh - 03/19/2020 2:59 PM EDT Patient Phone Numbers Spoke to patient via phone. Home phleb draw the INR today still not pending at lab. Follow up in 1 day regarding results. Abena Moralez, Pharm D Clinical Pharmacist 03/19/2020, 3:01 PM documented in this encounter Plan of Treatment Upcoming Encounters Date Type Specialty Care Team Description 03/20/2020 Anticoagulation Pharmacy [facility] [address] [place] [address] 04/24/2020 Office Visit Psychiatry Alisha Lilly, DO [address] [facility] [place] [id number] 09/17/2020 Office Visit Family Medicine Roger Alexandra MD [address] [place] [address] [phone] Health Maintenance Due Date Last Done Comments [...] Documents on File Type Date Recorded Patient Rear Admiral Expl 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 Advanced Directive
--- OUTSIDE RECORDS SUMMARY | 2023-07-25 05:16 | External Medical Summary | Summary of Care ---
Author Name Unknown Organization [place] [address] Care Team Providers Care Mayonnaise Mixer Name Role Phone Roger Alexandra MD Primary Care Provider [phone] Reason for Visit * Reason Comments Med Request Encounter Details Date Type Department Care Team Description 03/25/2020 Telephone Psychiatry, [place] [address] [place] [address] Alisha Lilly, [address] [place] [address] Med Request Allergies Active Allergy [...] or prescribe her something else. Patient - [phone] documented in this encounter Plan of Treatment Upcoming Encounters Date Type Specialty Care Team Description 04/01/2020 Anticoagulation Pharmacy [place], [facility] [address] [place] [address] 04/24/2020 Office Visit Psychiatry Alisha Lilly, DO [address] [facility] [place] [address] 09/17/2020 Office Visit Family Medicine Roger Alexandra MD [address] [place] [address] [phone] Health Maintenance Due Date Last Done Comments [...] Documents on File Type Date Recorded Patient Paraoptometric Expl 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 Advanced Directive
--- OUTSIDE RECORDS SUMMARY | 2023-07-25 05:16 | External Medical Summary | Summary of Care ---
Author Name Unknown Organization [place] [address] Care Team Providers Care Police Captain Senior Name Role Phone Roger Alexandra MD Primary Care Provider [phone] [phone] Reason for Visit * Reason Comments Dosage Adjustment Via Phone (anticoag Cl inic) Encounter Details Date Type Department Care Team Description 03/20/2020 Anticoagulation Pharmacy, [facility] [address] [place] [address] [address] Cerebrovascular disease, arteriosclerotic, post-stroke* Allergies Active Allergy Reactions Severity Noted Date Comments Aspirin Unknown 12/12/2007 von Willebrand's disease Salicylates 03/01/2000 von Willebrand's disease documented as of this encounter (statuses as of 03/20/2020) Medications Medication Sig Dispensed Refills Start Date [...] as of this encounter (statuses as of 03/20/2020) Active Problems Problem Noted Date Moderate episode [...] as of this encounter (statuses as of 03/20/2020) Resolved Problems Problem Noted Date Resolved Date [...] as of this encounter (statuses as of 03/20/2020) Immunizations Name Administration Dates Next Due H1N1 [...] Progress Notes * Abena Moralez RPh - 03/20/2020 10:58 AM EDT Medication Therapy Disease Management - Anticoagulation Patient: Kimberly Kendall : 1960 Contacts Type Contact Phone 03/20/2020 10:57 AM Phone (Outgoing) Kimberly Kendall (Self) [phone] (M) Current Warfarin Dose As of 03/20/2020 Warfarin maintenance plan: 5 mg (5 mg x 1) every Sun, [place]; 10 mg (5 mg x 2) all other days Patient-Reported Symptoms: INR Result As of 03/20/2020 INR goal: 2.0-3.0 INR used for dosin.12! (03/19/2020) Warfarin Plan As of 03/20/2020 Full warfarin instructions: 5/6: 15 mg; 5/7: 15 mg; Otherwise 5 mg every Sun, [place]; 10 mg all other days Next INR check: 03/26/2020 Additional Dosing Information: Description 5mg SuTuTh, 7.5mg all other days (5mg tabs-takes in AM) Repeat PT/INR in 6 day(s) Weekly dose: increased Abena Moralez [facility] Clinical Pharmacist 03/20/2020, 10:59 AM documented in this encounter Plan of Treatment Upcoming Encounters Date Type Specialty Care Team Description 04/24/2020 Office Visit Psychiatry Alisha Lilly, DO [address] [place] [address] [phone] 09/17/2020 Office Visit Family Medicine Roger Alexandra MD 132 [facility] [place] [address] Health Maintenance [...] on File Type Date Recorded Patient Insurance Verification Representative Expl 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 Advanced Directive
--- OUTSIDE RECORDS SUMMARY | 2023-07-25 05:16 | External Medical Summary ---
Author Name Unknown Address 132 [facility] [place] [address] Phone Organization K0G:[facility] Leija [address] [place] [address] [place] [address] Laboratory Report Ordering Provider Test Date Status MAGALY GRANT 03/19/2020 08:15:00 Final Observation Date Value Abnormality Reference (Units ) Status PT 03/19/2020 16:21 14.5 11.5-14.6 (se conds) Final INR 03/19/2020 16:21 1.12 0.84-1.14 Fin al Performing Location [facility] [employer] [address] [facility] [place] [address]
--- OUTSIDE RECORDS SUMMARY | 2023-07-25 05:16 | External Medical Summary | Summary of Care ---
Author Name Unknown Organization [place] [address] Care Team Providers Care Export Coordinator Name Role Phone Roger Alexandra MD Primary Care Provider [phone] Reason for Visit * (Routine) Status Reason Specialty Diagnoses / Procedures Referred By Contact Referred To Contact Canceled Diagnoses Left breast mass Procedures US BREAST-UNILATERAL LIMITED Owen Hermosillo, DO [address] [place] [address] Encounter Details Date Type Department Care Team Description 03/26/2020 Telemedicine [facility] [address] Roger Alexandra MD [address] [place] [address] [phone] Drug-seeking behavior*; Bronchitis, complicated; Tobacco use disorder; Morbid obesity due to excess calories (HCC); COPD, severe (HCC); Obstructive sleep apnea; Oxygen dependent; SIMA (generalized anxiety disorder); intermediate current use of anticoagulant therapy; Von Willebrand disease (HCC); Cerebrovascular disease, arteriosclerotic, post-stroke Allergies Active Allergy Reactions Severity Noted Date Comments Aspirin Unknown 12/12/2007 von Willebrand's disease Salicylates 03/01/2000 von Willebrand's disease documented as of this encounter (statuses as of 03/26/2020) Medications Medication Sig Dispensed Refills Start Date [...] for Cough. 120 mL 0 03/26/2020 Active guaiFENesin-codei ne (ROBITUSSIN AC) 100-10 MG/5ML syrupIndications: Bronchitis, complicated Take 5 mL by mouth every 4 hours as needed for Cough. 120 mL 0 03/05/2020 0 Discontinue d(Refill) documented as of this encounter (statuses as of 03/26/2020) Active Problems Problem Noted Date Moderate episode [...] as of this encounter (statuses as of 03/26/2020) Resolved Problems Problem Noted Date Resolved Date [...] as of this encounter (statuses as of 03/26/2020) Immunizations Name Administration Dates Next Due H1N1 [...] Progress Notes * Roger Alexandra MD - 03/26/2020 12:58 PM EDT After connecting through televideo, patient was verified with two unique identifiers. Patient (or authorized legal representative personal service) was then informed that this was a [...] that I have reviewed their record in [employer] and presented the opportunity for them to ask any questions regarding the visit today. The patient agreed to participate. SUBJECTIVE: Kimberly Kendall is a 59 year old female. No chief complaint on file. HPI: Patient was seen via televideo due to COVID-19 pandemic. She is a very unhealthy 59 year old obese female smoker with COPD and oxygen dependence, as well as hx of narcotic abuse who made an appointment today to discuss ongoing cough and congestion. She is out of her inhalers. It becomes clear to meafter several minutes talking that the reason for this visit might be to try to obtain pain medication. Her is talking to her in the background and advising her to ask me about pain meds. Shewould also like to discuss her anxiety. She is going to be scheduled tomorrow AM with Dr. Lilly. She continues to smoke heavily. She was tested for COVID last week and was negative. Patient Active Problem List Diagnosis Code intermediate current use of anticoagulant therapy Z79.01 Tobacco [...] obesity due to excess calories (HCC) E66.01 Current Outpatient Medications Medication Sig Dispense Refill Albuterol Sulfate (PROAIR HFA) 108 (90 Base) [...] 6oz of liquid . 210 g 3 escitalopram (LEXAPRO) 10 MG Tablet Take 1 Tab by mouth daily. Take 5 mg for 1 week then increase to 10 mg 30 Tab 2 hydrOXYzine HCl 50 MG Tablet [...] were no vitals taken for this visit. Nad, smoking a cigarette when video connected ASSESSMENT AND PLAN: (Z76.5) Drug-seeking behavior (primary encounter diagnosis) Plan: firmly but politely declined; patient is aware that I know her history of drug misuse and termination from pain clinics but continues to ask me for opiates (J40) Bronchitis, complicated Plan: fluticasone (FLOVENT HFA) 110 MCG/ACT inhaler, Albuterol Sulfate (PROAIR HFA) 108 (90 Base) MCG/ACT AERS, guaiFENesin-codeine (ROBITUSSIN AC) 100-10 MG/5ML syrup (F17.200) Tobacco use disorder Plan: not motivated to quit in spite of O2 dependence and end stage COPD with oxygen dependency (E66.01) Morbid obesity due to excess calories (HCC) Plan: did not discuss (J44.9) COPD, severe (HCC) Plan: will restart her inhalers (G47.33) Obstructive sleep apnea Plan: stable (Z99.81) Oxygen dependent Plan: stable (F41.1) SIMA (generalized anxiety disorder) Plan: has appt with Dr. 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 No other complaints were offered at this time. Roger Alexandra MD documented in this encounter Plan of Treatment Upcoming Encounters Date Type Specialty Care Team Description 04/24/2020 Office Visit Psychiatry Alisha Lilly, DO [address] [facility] [place] [address] 09/17/2020 Office Visit Family Medicine Rgoer Alexandra MD [facility] [address] [phone] Health Maintenance Due Date Last Done Comments [...] mixed, or unspecified nondependent drug abuse, unspecified Bronchitis, complicated Bronchitis, not specified as acute or chronic Tobacco use disorder Morbid obesity due to excess calories (HCC) COPD, severe (HCC) Chronic airway obstruction, not elsewhere classified Obstructive sleep apnea Obstructive sleep apnea (adult) (pediatric) Oxygen dependent Dependence on supplemental oxygen SIMA (generalized anxiety disorder) Generalized anxiety disorder 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 Von Willebrand disease (HCC) Von Willebrand's disease Cerebrovascular disease, arteriosclerotic, post-stroke Cerebral atherosclerosis documented in this encounter Advance Directives Documents on File Type Date Recorded Patient Fountain Attendant Expl 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 Advanced Directive
--- OUTSIDE RECORDS SUMMARY | 2023-07-25 05:16 | External Medical Summary ---
Author Name Unknown Address 132 [facility] [place] [address] Phone Organization K0G:[facility] [address] [facility] [place] [address] Laboratory Report Ordering Provider Test Date Status STEFANI MARINELLI 03/06/2020 07:20:00 Final Observation Date Value Abnormality Reference (Units ) Status PT 03/06/2020 09:33 13.1 11.5-14.6 (se conds) Final INR 03/06/2020 09:33 0.99 0.84-1.14 Fin al Performing Location [facility] [employer] [address] [employer] [facility] [place] [address]
--- OUTSIDE RECORDS SUMMARY | 2023-07-25 05:17 | External Medical Summary | Summary of Care ---
Author Name Unknown Organization [facility] Address [place] [address] Care Team Providers Care Seam Stay Stitcher Name Role Phone Roger Alexandra MD Primary Care Provider [phone] Reason for Visit * Reason Comments Appointment Encounter Details Date Type Department Care Team Description 02/01/2020 Anticoagulation Pharmacy, [facility] 132 [facility] [place] [address] [facility] 132 [facility] [place] [address] Cerebrovascular disease, arteriosclerotic, post-stroke* Allergies Active Allergy Reactions Severity Noted Date Comments Aspirin Unknown 12/12/2007 von Willebrand's disease Salicylates 03/01/2000 von Willebrand's disease documented as of this encounter (statuses as of 02/01/2020) Medications Medication Sig Dispensed Refills Start Date [...] 60 Tab 5 12/29/2019 Active hydrOXYzine HCl 25 MG tablet Take 1 Tab by mouth every 6 hours as needed for Anxiety. 40 Tab 2 01/17/2020 Active predniSONE (DELTASONE) 20 MG Tablet Take 3 tabs for 3 days, 2 tabs for 3 days, 1 tab for 3 days, 1/2 tab for 3 days 20 Tab 0 01/30/2020 Active doxycycline hyclate 100 MG Capsule Take 1 Cap by mouth 2 times a day for 10 days. Until gone. 20 Cap 0 01/30/2020 02/09/2020 Active documented as of this encounter (statuses as of 02/01/2020) Active Problems Problem Noted Date Oxygen dependent [...] update of inactive term COPD, mild 04/06/2007 [facility] current use of anticoagulant t herapy 06/01/2005 Overview: ICD-10 update of inactive term Depression with anxiety Tobacco use disorder documented as of this encounter (statuses as of 02/01/2020) Resolved Problems Problem Noted Date Resolved Date [...] as of this encounter (statuses as of 02/01/2020) Immunizations Name Administration Dates Next Due H1N1 [...] file Travel History Travel Start Travel End documented as of this encounter Progress Notes * Abena Moralez RPh - 02/01/2020 4:03 PM EDT Patient Phone Numbers Spoke to patient via phone. Patient refused home draw today because she is sick. Is following with Dr. Alexandra regarding this illness. Patient agreeable to continue current dose of couamdin 10 mg MWF and 5 mg all other days. Acknowledges risk of low/high INR at this time. Repeat pt/inr in 2 weeks on 02/14. Abena Moralez, Pharm D Clinical Pharmacist 02/01/2020, 4:09 PM * Alen Gong OSA - 02/01/2020 3:44 PM EDT Patient Phone Numbers Patient refused collection. documented in this encounter Plan of Treatment Upcoming Encounters Date Type Specialty Care Team Description 02/02/2020 Scheduled Telephone Ancillary Prac, Nurse Follow Up Phone Call Schedule [facility] [address] [phone] 02/05/2020 Scheduled Telephone Ancillary Prac, Nurse Follow Up Phone Call Schedule [address] [place] [address] [phone] 03/05/2020 Office Visit Psychiatry Alisha Lilly, DO [address] [facility] [place] [address] 03/05/2020 Office Visit Family Medicine Roger Alexandra MD 132 [place] [address] [phone] Health Maintenance Due Date Last Done Comments [...] exists *DISCUSS TOBACCO CESSATION (REFER TO SMARTSET #[id number]) 01/04/2020 LIPID SCREEN EVERY 5 YRS-WOMEN AGE [...] on File Type Date Recorded Patient Sheet Metal Mechanic Expl 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
--- OUTSIDE RECORDS SUMMARY | 2023-07-25 05:17 | External Medical Summary | Summary of Care ---
Author Name Unknown Organization [facility] Address [place] [address] Care Team Providers Care Home Fire Alarm Installer Name Role Phone Roger Alexandra MD Primary Care Provider [phone] Reason for Visit * Reason Comments Advice Encounter Details Date Type Department Care Team Description 01/30/2020 Telephone Family Practice [facility] 132 [facility] [place] [address] Roger Alexandra MD 132 [facility] [address] Advice Allergies Active Allergy Reactions Severity Noted Date Comments Aspirin Unknown 12/12/2007 von Willebrand's disease Salicylates 03/01/2000 von Willebrand's disease documented as of this encounter (statuses as of 01/30/2020) Medications Medication Sig Dispensed Refills Start Date [...] for Anxiety. 40 Tab 2 01/17/2020 Active documented as of this encounter (statuses as of 01/30/2020) Active Problems Problem Noted Date Oxygen dependent [...] as of this encounter (statuses as of 01/30/2020) Resolved Problems Problem Noted Date Resolved Date [...] as of this encounter (statuses as of 01/30/2020) Immunizations Name Administration Dates Next Due H1N1 [...] Travel End documented as of this encounter Miscellaneous Notes * Telephone Encounter - Roger Alexandra MD - 01/30/2020 10:38 AM EDT Agree. * Telephone Encounter - Temi West LPN - 01/30/2020 10:13 AM EDT Patient calling and states that she is experiencing SOB, Wheezing also states that she is coughing up greenish colored mucous. Also states that she has body aches and sometimes feels dizzy. Denies dizziness at this time. Patient states that the symptoms started Wednesday or Wednesday. Wheezing is audible via TPC. Denies fever. Denies travel or being around anyone who has tested positive for COVID-19 Messaged [facility] nurses and advise that patient should come in for an OV today. Acute appt offered for today and patient declined and is requesting to be seen this 02.01.2020. Appt scheduled 02.01.[address] Chávez. Contact verified and pharmacy selected. Please advise. * Telephone Encounter - [employer] PHARM Tech - 01/30/2020 10:10 AM EDT Pt calling stating has been sick w/ fever, etc. Pt states she has been experiencing some wheezing and unsure if she should be treated. Requesting abx Warm transferred to nurse Thank you, [employer] [facility] 01/30/2020, 10:11 AM documented in this encounter Plan of Treatment Upcoming Encounters Date Type Specialty Care Team Description 02/01/2020 Laboratory Laboratory Processing [place], Lab Processing Mobile [address] [place] [address] 02/01/2020 Office Visit Family Medicine Alonso Chávez MD 132 [facility] [place] [address] [phone] 02/01/2020 Anticoagulation Pharmacy [facility] [place] [facility] [address] [place] [address] 03/05/2020 Office Visit Psychiatry Alisha Lilly DO [address] [place] [address] [phone] 03/05/2020 Office Visit Family Medicine Roger [facility]andra MD [facility] [place] [address] [phone] Health Maintenance Due Date Last Done Comments [...] Documents on File Type Date Recorded Patient County Coroner Expl 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
--- OUTSIDE RECORDS SUMMARY | 2023-07-25 05:17 | External Medical Summary | Summary of Care ---
Author Name Unknown Organization [facility] Address [place] [address] Care Team Providers Care Decoration Checker Name Role Phone Roger Alexandra MD Primary Care Provider [phone] Reason for Visit * Reason Comments Follow Up Nurse visit follow u p phone call. Encounter Details Date Type Department Care Team Description 02/02/[address] [facility] [address] [facility] [place] [address] Prac, Nurse Follow Up Phone Call Schedule [facility] [address] [place] [address] [phone] Arrived Allergies Active Allergy Reactions Severity Noted Date Comments Aspirin Unknown 12/12/2007 von Willebrand's disease Salicylates 03/01/2000 von Willebrand's disease documented as of this encounter (statuses as of 02/02/2020) Medications Medication Sig Dispensed Refills Start Date [...] as of this encounter (statuses as of 02/02/2020) Active Problems Problem Noted Date Oxygen dependent [...] update of inactive term COPD, mild 04/06/2007 senior care current use of anticoagulant t herapy 06/01/2005 Overview: ICD-10 update of inactive term Depression with anxiety Tobacco use disorder documented as of this encounter (statuses as of 02/02/2020) Resolved Problems Problem Noted Date Resolved Date [...] as of this encounter (statuses as of 02/02/2020) Immunizations Name Administration Dates Next Due H1N1 [...] Telephone Encounter - Brittney Wilde DO - 02/02/2020 10:54 AM EDT Agree w/advice * Telephone Encounter - Kim De Guzman LPN - 02/02/2020 9:07 AM EDT Called pt, sometimes she feeling feverish at night, sweats. Caregiver is going to get a thermometertoday. Always SOB, wheezing anyways. Otherwise doing ok. has been sick for 1 week. [facility]. He has had fever, cough and SOB. He has no underlying problems such has COPD or Emphysema. Pt advised that they should both continue self quarantine and call their providers if s/s change orworsen. documented in this encounter Plan of Treatment Upcoming Encounters Date Type Specialty Care Team Description 02/05/2020 Scheduled Telephone Ancillary Prac, Nurse Follow Up Phone Call Schedule [facility] [address] [address] [phone] 02/15/2020 Anticoagulation Pharmacy [facility] [address] [place] [address] 03/05/2020 Office Visit Psychiatry Alisha Lilly, [address] [facility] [place] [address] [phone] 03/05/2020 Office Visit Family Medicine Roger Alexandra MD [address] [place] [address] [phone] Health Maintenance Due Date Last Done Comments [...] Documents on File Type Date Recorded Patient Billet Straightener Expl 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 Advanced Directive
--- OUTSIDE RECORDS SUMMARY | 2023-07-25 05:17 | External Medical Summary | Summary of Care ---
Author Name Unknown Organization [facility] Address [place] [address] Care Team Providers Care Laboratory Asst Name Role Phone Roger Alexandra MD Primary Care Provider +1 [phone] Reason for Visit * Reason Comments Nurse Documentation NV phone call. Encounter Details Date Type Department Care Team Description 02/01/2020 Scheduled Telephone Ancillary [facility] [address] [facility] [place] [address] Prac, Nurse Follow Up Phone Call Schedule [facility] [address] [facility] [place] [address] Allergies Active Allergy Reactions [...] update of inactive term COPD, mild 04/06/2007 group home current use of anticoagulant t [...] Encounter - Kim De Guzman LPN - 02/01/2020 9:06 AM EDT Called pt, started meds, getting lots rest, and fluids. Always has SOB, but pretty sure she does not have a fever although no way to check it at home. No thermometer. Advised that if she has any worsening s/s and is concerned, please call. Will check in with her again tomorrow with a phone [place] call as well. FYI documented in this encounter Plan of Treatment Upcoming Encounters Date Type Specialty Care Team Description 02/01/2020 Anticoagulation Pharmacy [facility] [address] [place] [address] 02/02/2020 Scheduled Telephone Ancillary Prac, Nurse Follow Up Phone Call Schedule [place] [address] [place] [address] [phone] 02/05/2020 Scheduled Telephone Ancillary Prac, Nurse Follow Up Phone Call Schedule [place] [address] [place] [address] [phone] 03/05/2020 Office Visit Psychiatry Alisha Lilly, DO [address] [place] [address] 03/05/2020 Office Visit Family Medicine Roger Alexandra MD [address] [place] [address] [phone] Health Maintenance Due Date Last Done Comments [...] exists *DISCUSS TOBACCO CESSATION (REFER TO SMARTSET #[id number]) 01/04/2020 LIPID SCREEN EVERY 5 YRS-WOMEN AGE [...] on File Type Date Recorded Patient Loan Closer Expl 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
--- OUTSIDE RECORDS SUMMARY | 2023-07-25 05:17 | External Medical Summary | Summary of Care ---
Author Name Unknown Organization [facility] Address [place] [address] Care Team Providers Care Deputy City Clerk Name Role Phone Roger Alexandra MD Primary Care Provider [phone] [phone] Reason for Visit * Reason Comments Advice Encounter Details Date Type Department Care Team Description 01/30/2020 Telephone Family Practice [facility] 132 [facility] [place] [address] Roger Alexandra MD 132 [facility] [place] [address] Advice Allergies Active Allergy Reactions Severity [...] update of inactive term COPD, mild 04/06/2007 alf current use of anticoagulant t herapy [...] transferred to nurse Thank you, [facility] Refill Call Center 01/30/2020, 10:11 AM documented in this encounter Plan of Treatment Upcoming Encounters Date Type Specialty Care Team Description 02/01/2020 Laboratory Laboratory Processing [place], Lab Processing Mobile [address] [place] [address] 02/01/2020 Office Visit Family Medicine Alonso Chávez MD 132 [facility] [place] [address] [phone] 02/01/2020 Anticoagulation Pharmacy [facility] [place] [address] [place] [address] 03/05/2020 Office Visit Psychiatry Alisha Lilly DO [address] [place] [address] [phone] 03/05/2020 Office Visit Family Medicine Roger Alexandra MD [facility] [place] [address] [phone] Health Maintenance Due Date Last Done Comments [...] Documents on File Type Date Recorded Patient Wrister Expl 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
--- OUTSIDE RECORDS SUMMARY | 2023-07-25 05:17 | External Medical Summary | Summary of Care ---
Author Name Unknown Organization [facility] Address [facility] [place] [address] Care Team Providers Care Tobacco Sampler Name Role Phone Roger Alexandra MD Primary Care Provider [phone] [phone] Reason for Visit * Reason Comments Dosage Adjustment Via Phone (anticoag Cl inic) Encounter Details Date Type Department Care Team Description 02/28/2020 [facility]tico[facility] Pharm[facility], [facility] [address] [facility] [address] Cerebrovascular disease, arteriosclerotic, post-stroke* Allergies Active Allergy Reactions Severity Noted Date Comments Aspirin Unknown 12/12/2007 von Willebrand's disease Salicylates 03/01/2000 von Willebrand's disease documented as of this encounter (statuses as of 02/28/2020) Medications Medication Sig Dispensed Refills Start Date [...] 3 days 20 Tab 0 01/30/2020 Active documented as of this encounter (statuses as of 02/28/2020) Active Problems Problem Noted Date Oxygen dependent [...] update of inactive term COPD, mild 04/06/2007 [facility] current use of anticoagulant t herapy 06/01/2005 Overview: ICD-10 update of inactive term Depression with anxiety Tobacco use disorder documented as of this encounter (statuses as of 02/28/2020) Resolved Problems Problem Noted Date Resolved Date [...] as of this encounter (statuses as of 02/28/2020) Immunizations Name Administration Dates Next Due H1N1 [...] have Coronavirus / COVID-19? Unable to assess 02/21/2020 12:26 AM EDT documented as of this encounter Progress Notes * Abena Moralez RPh - 02/28/2020 2:33 PM EDT Medication Therapy Disease Management - Anticoagulation Patient: Kimberly Kendall : 1960 Contacts Type Contact Phone 02/28/2020 02:33 PM Phone (Outgoing) Kimberly Kendall (Self) [phone] (H) Current Warfarin Dose As of 02/28/2020 Warfarin maintenance plan: 10 mg (5 mg x 2) every Mon, Wed, Fri; 5 mg (5 mg x 1) all other days Patient-Reported Symptoms: Patient Findings Positives: Missed doses (missed wednesday and wednesday ), Extra doses (extra table ) Negatives: Signs/symptoms of thrombosis, Signs/symptoms of bleeding, Change in health, Change in alcohol use, Change in activity, Upcoming invasive procedure, Change in medications, Change in diet/appetite, Bruising INR Result As of 02/28/2020 INR goal: 2.0-3.0 INR used for dosin.08! (02/28/2020) Warfarin Plan As of 02/28/2020 Full warfarin instructions: 02/27: 15 mg; 02/28: 15 mg; Otherwise 10 mg every Wed, Wed, Wed; 5 mg allother days Next INR check: 03/07/2020 Additional Dosing Information: Description 5mg SuTuTh, 7.5mg all other days (5mg tabs-takes in AM) Repeat PT/INR in 8 day(s) on 03/07 Weekly dose: not changed Abena Moralez michelle Clinical Pharmacist 02/28/2020, 2:36 PM documented in this encounter Plan of Treatment Upcoming Encounters Date Type Specialty Care Team Description 03/05/2020 Telemedicine Psychiatry Alisha Lilly, DO [address] [place] [address] [phone] 03/05/2020 Office Visit Family Medicine Roger Alexandra MD [address] [place] [address] [phone] 03/07/2020 Anticoagulation Pharmacy [facility] [place] [address] [place] [address] Health Maintenance Due Date Last Done Comments [...]
--- OUTSIDE RECORDS SUMMARY | 2023-07-25 05:17 | External Medical Summary | Summary of Care ---
Author Name Unknown Organization [facility] Address [place] [address] Care Team Providers Care Lens Shaper Grinder Name Role Phone Roger Alexandra MD Primary Care Provider [phone] [phone] Reason for Visit * Reason Comments Dosage Adjustment Via Phone (anticoag Cl inic) Encounter Details Date Type Department Care Team Description 02/15/2020 Anticoagulation Pharmacy, [facility] [address] [place] [address] Cerebrovascular disease, arteriosclerotic, post-stroke* Allergies Active Allergy Reactions Severity Noted Date Comments Aspirin Unknown 12/12/2007 von Willebrand's disease Salicylates 03/01/2000 von Willebrand's disease documented as of this encounter (statuses as of 02/15/2020) Medications Medication Sig Dispensed Refills Start Date [...] as of this encounter (statuses as of 02/15/2020) Active Problems Problem Noted Date Oxygen dependent [...] update of inactive term COPD, mild 04/06/2007 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 06/01/2005 Overview: ICD-10 update of inactive term Depression with anxiety Tobacco use disorder documented as of this encounter (statuses as of 02/15/2020) Resolved Problems Problem Noted Date Resolved Date [...] as of this encounter (statuses as of 02/15/2020) Immunizations Name Administration Dates Next Due H1N1 [...] this encounter Progress Notes * Abena Moralez [facility] - 02/15/2020 1:11 PM EDT Medication Therapy Disease Management - Anticoagulation Patient: Kimberly Kendall : 1960 Current Warfarin Dose As of 02/15/2020 Warfarin maintenance plan: 10 mg (5 mg x 2) every Mon, Wed, Fri; 5 mg (5 mg x 1) all other days Patient-Reported Symptoms: INR Result As of 02/15/2020 INR goal: 2.0-3.0 INR used for dosing: Warfarin Plan As of 02/15/2020 Full warfarin instructions: 10 mg every Mon, Wed, Fri; 5 mg all other days No change documented: Abena Moralez michelle Next INR check: 02/22/2020 Additional Dosing Information: Description 5mg SuTuTh, 7.5mg all other days (5mg tabs-takes in AM) Repeat PT/INR in 1 week(s) due to respiratory illness Weekly dose: not changed Abena Moralez [facility] Clinical Pharmacist 02/15/2020, 1:12 PM * Carole Aguilar OSA - 02/14/2020 1:59 PM EDT Patient Phone Numbers Mobile phlebotomy cancelled PT/INR home visit due to patient having respiratory illness, per Susanne(switchbox assembler). documented in this encounter Plan of Treatment Upcoming Encounters Date Type Specialty Care Team Description 03/05/2020 Telemedicine Psychiatry Alisha Lilly, DO [address] [facility] [place] [address] 03/05/2020 Office Visit Family Medicine Roger Alexandra MD 132 [place] [address] [phone] Health Maintenance Due Date Last Done Comments [...] Documents on File Type Date Recorded Patient Revenue Collector Expl 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 Advanced Directive
--- OUTSIDE RECORDS SUMMARY | 2023-07-25 05:17 | External Medical Summary | Summary of Care ---
Author Name Unknown Organization [facility] Address [place] [address] Care Team Providers Care Director Sales Name Role Phone Roger Alexandra MD Primary Care Provider [phone] Reason for Visit * Reason Comments Advice Encounter Details Date Type Department Care Team Description 01/30/2020 Telephone Family Practice [facility] 132 [facility] [place] [address] Alonso Chávez MD 132 [facility] [place] [address] Advice Allergies Active Allergy Reactions Severity Noted Date Comments Aspirin Unknown 12/12/2007 von Willebrand's disease Salicylates 03/01/2000 von Willebrand's disease documented as of this encounter (statuses as of 01/31/2020) Medications Medication Sig Dispensed Refills Start Date [...] as of this encounter (statuses as of 01/31/2020) Active Problems Problem Noted Date Oxygen dependent [...] update of inactive term COPD, mild 04/06/2007 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 Phone calls scheduled for /wed and wed * Telephone Encounter - Alonso Chávez MD - 01/30/2020 9:49 PM EDT appt was made for . Has known COPD. Would advise start antibiotic (doxycycline) and start prednisone taper. Would advise avoid office visit in current COVID situation unless severe worsening, in which care would recommend ER eval. Call patient daily for nurse telephone check. Rx sent. Ritpuma amador documented in this encounter Plan of Treatment Upcoming Encounters Date Type Specialty Care Team Description 02/01/2020 Laboratory [facility] Mobile [address] [place], [place] [id number] 02/01/2020 Scheduled Telephone Ancillary Prac, Nurse Follow Up Phone Call Schedule [facility] [address] [place] [address] [phone] 02/01/2020 Anticoagulation Pharmacy [facility] [place] [address] [place] [address] 02/02/2020 Scheduled Telephone Ancillary Prac, Nurse Follow Up Phone Call Schedule [facility] [address] [place] [address] [phone] 02/05/2020 Scheduled Telephone Ancillary Prac, Nurse Follow Up Phone Call Schedule [facility] [address] [place] [address] [phone] 03/05/2020 Office Visit Psychiatry Alisha Lilly, [address] [place], [place] [address] 03/05/2020 Office Visit Family Medicine Roger Alexandra MD [address] [place] [address] [phone] Health Maintenance Due Date Last Done Comments [...] exists *DISCUSS TOBACCO CESSATION (REFER TO SMARTSET #[id number]) 01/04/2020 LIPID SCREEN EVERY 5 YRS-WOMEN AGE [...] Documents on File Type Date Recorded Patient Sas Architect Expl 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
--- OUTSIDE RECORDS SUMMARY | 2023-07-25 05:17 | External Medical Summary | Summary of Care ---
Author Name Unknown Organization [facility] Address [place] [address] Care Team Providers Care Cota Name Role Phone Roger Alexandra MD Primary Care Provider [phone] Reason for Visit * Reason Comments Nurse Telephone Follow Up Encounter Details Date Type Department Care Team Description 02/05/2020 Scheduled Telephone Ancillary [facility] [address] [place] [address] Prac, Nurse Follow Up Phone Call Schedule [facility] 132 [facility] [place] [address] Arrived Allergies Active Allergy Reactions Severity Noted Date Comments Aspirin Unknown 12/12/2007 von Willebrand's disease Salicylates 03/01/2000 von Willebrand's disease documented as of this encounter (statuses as of 02/05/2020) Medications Medication Sig Dispensed Refills Start Date [...] as of this encounter (statuses as of 02/05/2020) Active Problems Problem Noted Date Oxygen dependent [...] update of inactive term COPD, mild 04/06/2007 half-way current use of anticoagulant t herapy 06/01/2005 Overview: ICD-10 update of inactive term Depression with anxiety Tobacco use disorder documented as of this encounter (statuses as of 02/05/2020) Resolved Problems Problem Noted Date Resolved Date [...] as of this encounter (statuses as of 02/05/2020) Immunizations Name Administration Dates Next Due H1N1 [...] Encounter - Kim De Guzman LPN - 02/05/2020 9:34 AM EDT Called pt, "still sick",.. cannot find a thermometer to buy. Does not know if she has a fever. [facility]. They have good days and bad. Pt is always SOB, butnot more than usually. Can be heard wheezing slightly while talking to her on the phone. Trying to get up and move around. They have not left the home. They have a switching clerk that comes into the home and she is taking precautions. Continues with rest, fluid and medications. documented in this encounter Plan of Treatment Upcoming Encounters Date Type Specialty Care Team Description 02/15/2020 Anticoagulation Pharmacy [place], [facility] [place] 132 [facility] [place] [address] 03/05/2020 Office Visit Psychiatry Alisha Lilly, DO [address] [facility] [place] [address] 03/05/2020 Office Visit Family Medicine Roger Alexandra MD [address] [place] [address] [phone] Health Maintenance Due Date Last Done Comments [...] exists *DISCUSS TOBACCO CESSATION (REFER TO SMARTSET #[id number]) 01/04/2020 LIPID SCREEN EVERY 5 YRS-WOMEN AGE [...] Documents on File Type Date Recorded Patient Visual Merchandising Manager Expl 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 Advanced Directive
--- OUTSIDE RECORDS SUMMARY | 2023-07-25 05:17 | External Medical Summary | Summary of Care ---
Author Name Unknown Organization [facility] Address [place] [address] Care Team Providers Care Senior Solutions Consultant Name Role Phone Roger Alexandra MD Primary Care Provider [phone] Reason for Visit * Reason Comments Dosage Adjustment Via Phone (anticoag Cl inic) Encounter Details Date Type Department Care Team Description 01/19/2020 Anticoagulation Pharmacy, [facility] 132 [facility] 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 06/01/2005 Overview: ICD-10 update of inactive term Depression with anxiety Tobacco use disorder documented as of this encounter (statuses as of 01/19/2020) Resolved Problems Problem Noted Date Resolved Date [...] as of this encounter (statuses as of 01/19/2020) Immunizations Name Administration Dates Next Due H1N1 [...] [facility] - 01/19/2020 11:42 AM EST Medication Therapy Disease Management - Anticoagulation Patient: Kimberly Kendall : 1960 Contacts Type Contact Phone 01/19/2020 11:42 AM Phone (Outgoing) Kimberly Kendall (Self) [phone] (H) Current Warfarin Dose As of 01/19/2020 Warfarin maintenance plan: 10 mg (5 mg x 2) every Mon; 5 mg (5 mg x 1) all other days Patient-Reported Symptoms: Patient Findings Positives: Missed doses (Missed dose 2 days ago ) Negatives: Signs/symptoms of thrombosis, Signs/symptoms of bleeding, Change in health, Change in alcohol use, Change in activity, Upcoming invasive procedure, Extra doses, Change in medications, Change in diet/appetite, Bruising INR Result As of 01/19/2020 INR goal: 2.0-3.0 INR used for dosin.03! (01/19/2020) Warfarin Plan As of 01/19/2020 Full warfarin instructions: 01/18: 10 mg; 01/19: 10 mg; Otherwise 10 mg every Mon; 5 mg all other days Next INR check: 01/26/2020 Additional Dosing Information: Description 5mg SuTuTh, 7.5mg all other days (5mg tabs-takes in AM) Repeat PT/INR in 1 week(s) Weekly dose: not changed Abena Moralez [facility] Clinical Pharmacist 01/19/2020, 11:43 AM documented in this encounter Plan of Treatment Upcoming Encounters Date Type Specialty Care Team Description 03/05/2020 Office Visit Psychiatry Alisha Lilly, DO [address] [place] [address] 03/05/2020 Office Visit Family Medicine Roger [...] on File Type Date Recorded 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
--- OUTSIDE RECORDS SUMMARY | 2023-07-25 05:17 | External Medical Summary ---
Author Name Unknown Address 132 [facility] [place] [address] Phone Organization K0G:[facility] [employer] [address] [facility] [place] [address] Laboratory Report Ordering Provider Test Date Status STEFANI MARINELLI 01/25/2020 08:45:00 Final Observation Date Value Abnormality Reference (Units ) Status PT 01/25/2020 12:32 17.3 Above high normal 11.5- 14.6 (seconds) Final INR 01/25/2020 12:32 1.40 Above high normal 0.84- 1.14 Final Performing Location [facility] [employer] [address] [place] [address]
--- OUTSIDE RECORDS SUMMARY | 2023-07-25 05:17 | External Medical Summary | Summary of Care ---
Author Name Unknown Organization [place] [address] Care Team Providers Care Job Service Specialist Name Role Phone Roger Alexandra MD Primary Care Provider [phone] Reason for Visit * Reason Comments Test Results Encounter Details Date Type Department Care Team Description 02/20/[address] [facility] [address] [facility] [place] [address] Roger Alexandra MD 132 [facility] [place] [address] Test Results Allergies Active Allergy Reactions Severity Noted Date Comments Aspirin Unknown 12/12/2007 von Willebrand's disease Salicylates 03/01/2000 von Willebrand's disease documented as of this encounter (statuses as of 02/22/2020) Medications Medication Sig Dispensed Refills Start Date [...] as of this encounter (statuses as of 02/22/2020) Active Problems Problem Noted Date Oxygen dependent [...] as of this encounter (statuses as of 02/22/2020) Resolved Problems Problem Noted Date Resolved Date [...] as of this encounter (statuses as of 02/22/2020) Immunizations Name Administration Dates Next Due H1N1 [...] Telephone Encounter - Piedad Dumas LPN - 02/22/2020 2:03 PM EDT Addressed in another encounter * Telephone Encounter - Jackie Leija OSA - 02/22/2020 12:52 PM EDT Reason for patient's call: COVID-19 results Caller was transferred to [facility] at the RN nurse line. * Telephone Encounter - Emmanuel Brooks DO - 02/22/2020 11:11 AM EDT To my understanding [facility] has a protocol for this and they are using the embroidery designer system to reach out to all results both positive and negative, no? * Telephone Encounter - Mana De Jesus LPN - 02/22/2020 10:22 AM EDT See below, pt requesting results for COVID-19. Please advise. * Telephone Encounter - Naina Cortez OSA - 02/22/2020 9:25 AM EDT Patient calling in to check on the status of previous message. * Telephone Encounter - Kim De Guzman LPN - 02/21/2020 5:37 PM EDT Please check results and confirm. * Telephone Encounter - Santa Walters OSA - 02/21/2020 4:29 PM EDT Who is Requesting Test Results: Patient Primary Care Provider : Roger Alexandra MD Tests Results Requested : COVID19 Date of Test : 02/15 Location of Test: Ordering Provider: COY Garg Callback Number: [phone] Patient requesting to call [facility], patient is tearful and scared for the results. Patient also doesn't have her normal care givers in the home until they revieve results from the testing. After callingpatient please fax results to [phone]; Monique Alfa Patient has been made aware that the turnaround time for test results are typically as follows: Laboratory results = within 2 days Pathology results (biopsy results/PAP) = 1-2 weeks Radiology results = within 1 week COVID testing = 10 days * Telephone Encounter - Apple Breaux LPN - 02/20/2020 12:22 PM EDT Wrong pool * Telephone Encounter - Jasmin Kapoor OSA - 02/20/2020 12:16 PM EDT Who is Requesting Test Results: pt Primary Care Provider : Dr. Ibrahima Ruby Results Requested : COVID19 Date of Test : 02/16/20 Location of Test: [facility] Ordering Provider: Dr. barron Callback Number: [phone] Patient has been made aware that the turnaround time for test results are typically as follows: Laboratory results = within 2 days Pathology results (biopsy results/PAP) = 1-2 weeks Radiology results = within 1 week COVID testing = 10 days * Telephone Encounter - Aura Damico LPN - 02/20/2020 11:58 AM EDT Pt states that someone called her today but she is not sure who called her and they did not leave amessage She is scheduled for mobile lab tomorrow but she has been sick and states that they have not been coming She was tested for COVID-19 on 02/16/20 but has not received her results yet She is not sure if this what whoever was calling about or not There is not documentation in pts chart of any phone calls to her today She asked to be transferred to the appointment line for MTM Transferred call to [facility] * Telephone Encounter - Beth Balderrama OSA - 02/20/2020 11:53 AM EDT Reason for patient's call: pt is requesting to speak with a nurse regarding her lab appt she has scheduled for 02-21-20 Caller was transferred to [facility] at the nurse line. documented in this encounter Plan of Treatment Upcoming Encounters Date Type Specialty Care Team Description 02/28/2020 Anticoagulation Pharmacy [facility], [facility] [place] [address] [place] [address] 03/05/2020 Telemedicine Psychiatry Alisha Lilly, DO [address] [facility] [place] [address] 03/05/2020 Office Visit Family Medicine Roger Alexandra MD [address] [place] [address] [phone] Health Maintenance Due Date Last Done Comments [...] exists *DISCUSS TOBACCO CESSATION (REFER TO SMARTSET #3091) 01/04/2020 LIPID SCREEN EVERY 5 YRS-WOMEN AGE [...] Documents on File Type Date Recorded Patient Surveillance Investigator Expl 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 Advanced Directive
--- OUTSIDE RECORDS SUMMARY | 2023-07-25 05:17 | External Medical Summary | Summary of Care ---
Author Name Unknown Organization [place] [address] Care Team Providers Care Well Testing Operator Name Role Phone Roger Alexandra MD Primary Care Provider [phone] Reason for Visit * Reason Comments Test Results Encounter Details Date Type Department Care Team Description 02/20/2020 Telephone Family Practice [facility] [address] [facility] [place] [address] Roger Alexandra MD 132 [facility] [place] [address] Test Results Allergies Active Allergy Reactions Severity Noted Date Comments Aspirin Unknown 12/12/2007 von Willebrand's disease Salicylates 03/01/2000 von Willebrand's disease documented as of this encounter (statuses as of 02/23/2020) Medications Medication Sig Dispensed Refills Start Date [...] as of this encounter (statuses as of 02/23/2020) Active Problems Problem Noted Date Oxygen dependent [...] update of inactive term COPD, mild 04/06/2007 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 * Telephone Encounter - Emmanuel Brooks DO - 02/22/2020 11:11 AM EDT To my understanding [facility] has a protocol for this and they are using the forge press operator system to reach out to all results [...] Test: Ordering Provider: COY Garg Callback Number: [phone] Patient requesting to call [facility], patient is tearful and scared for the results. Patient also doesn't have her normal care givers in the home until they revieve results from the testing. After callingpatient please fax results to [phone]; Monique Alfa Patient has been made aware [...] of Test : 02/16/20 Location of Test: [facility] Ordering Provider: Dr. barron Callback Number: [phone] Patient has been made aware that the [...] appointment line for MTM Transferred call to [facility] * Telephone Encounter - Beth Balderrama OSA - 02/20/2020 11:53 AM EDT Reason for patient's call: pt is requesting to speak with a nurse regarding her lab appt she has scheduled for 02-21-20 Caller was transferred to [facility] at the nurse line. documented in this encounter Plan of Treatment Upcoming Encounters Date Type Specialty Care Team Description 02/28/2020 Anticoagulation Pharmacy [facility], [facility] [place] [address] [place] [address] 03/05/2020 Telemedicine Psychiatry Alisha Lilly, DO [address] [facility] [place] [address] 03/05/2020 Office Visit Family Medicine Roger Alexandra MD [address] [place] [address] [phone] Health Maintenance Due Date Last Done Comments [...] exists *DISCUSS TOBACCO CESSATION (REFER TO SMARTSET #5451) 01/04/2020 LIPID SCREEN EVERY 5 YRS-WOMEN AGE [...] Documents on File Type Date Recorded Patient Clock And Watch Hands Painter Expl 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 Advanced Directive
--- OUTSIDE RECORDS SUMMARY | 2023-07-25 05:17 | External Medical Summary | Summary of Care ---
Author Name Unknown Organization [facility] Address [place] [address] Care Team Providers Care Product Safety Tester Name Role Phone Roger Alexandra MD Primary Care Provider [phone] Reason for Visit * Reason Comments Advice Encounter Details Date Type Department Care Team Description 01/30/2020 Telephone Family Practice [facility] [address] [facility] [place] [address] Roger Alexandra MD 132 [place] [address] Advice Allergies Active Allergy Reactions Severity [...] Telephone Encounter - Susana Velarde CMA - 01/30/2020 10:58 AM EDT Called pt and let her know. * Telephone Encounter - Roger Alexandra MD [...] transferred to nurse Thank you, [facility] [employer] [facility] Refill Call Center 01/30/2020, 10:11 AM documented in this encounter Plan of Treatment Upcoming Encounters Date Type Specialty Care Team Description 02/01/2020 Laboratory Laboratory Processing [place], Lab Processing Mobile [address] [facility] [place] [id number] 02/01/2020 Office Visit Family Medicine Alonso Chávez MD [address] [place] [address] [phone] 02/01/2020 Anticoagulation Pharmacy [facility] [place] [address] [place] [address] 03/05/2020 Office Visit Psychiatry Alisha Lilly, DO [address] [facility] [place] [address] 03/05/2020 Office Visit Family Medicine Roger Alexandra MD [address] [place] [address] [phone] Health Maintenance Due Date Last Done Comments [...] on File Type Date Recorded Patient Certified Respiratory Therapist Expl 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
--- OUTSIDE RECORDS SUMMARY | 2023-07-25 05:17 | External Medical Summary | Summary of Care ---
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 If any action is needed, create a separate telephone encounter or orders only encounter. Your test for COVID-19 came back negative, which means you are NOT infected. ? If your cold/flu symptoms last longer than 7 days or get worse, contact your primary care physician. If you don't have a primary care physician, go to the nearest [facility] or urgent careclinic. ? Practice social distancing and good hand hygiene to keep yourself and others safe. Patient requesting copy of test results to be sent to [facility], fax [phone] Attention:Mili Grimm. Patient may be reached at [phone] for any questions or concerns. documented in this encounter Plan of Treatment Upcoming Encounters Date Type Specialty Care Team Description 02/28/2020 Anticoagulation Pharmacy [facility], [facility] [place] [address] [place] [address] 03/05/2020 Telemedicine Psychiatry Alisha Lilly, DO [address] [place] [address] 03/05/2020 Office Visit Family Medicine Roger Alexandra MD [address] [place] [address] [phone] Health Maintenance Due Date Last Done Comments [...] exists *DISCUSS TOBACCO CESSATION (REFER TO SMARTSET #5164) 01/04/2020 LIPID SCREEN EVERY 5 YRS-WOMEN AGE [...] Documents on File Type Date Recorded Patient Retort Kiln Burner Expl 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 Advanced Directive
--- OUTSIDE RECORDS SUMMARY | 2023-07-25 05:17 | External Medical Summary | Summary of Care ---
Author Name Unknown Organization [facility] Address [place] [address] Care Team Providers Care Precision Thread Grinder Operator Name Role Phone Roger Alexandra MD Primary Care Provider [phone] Reason for Visit * Reason Comments Follow Up Nurse visit follow u p phone call. Encounter Details Date Type Department Care Team Description 02/02/2020 Scheduled Telephone Ancillary [facility] [address] [facility] [place] [address] Prac, Nurse Follow Up Phone Call Schedule [facility] [address] [place] [address] [phone] Arrived Allergies Active Allergy Reactions Severity Noted [...] sick for 1 week. [place] care, and they called him an [...] Prac, Nurse Follow Up Phone Call Schedule [facility] [address] [place] [address] [phone] 02/15/[address] [facility] [place] [address] [place] [address] 03/05/2020 Office Visit Psychiatry Alisha Lilly, DO [address] [place], [place] [address] 03/05/2020 Office Visit Family Medicine Roger Alexandra MD [address] [place] [address] [phone] Health Maintenance Due Date Last Done Comments [...] exists *DISCUSS TOBACCO CESSATION (REFER TO SMARTSET #4971) 01/04/2020 LIPID SCREEN EVERY 5 YRS-WOMEN AGE [...] on File Type Date Recorded Patient Radio Communications Mechanician Expl 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 Advanced Directive
--- OUTSIDE RECORDS SUMMARY | 2023-07-25 05:17 | External Medical Summary ---
Author Name Unknown Address [address] [facility] [place] [address] Phone Organization K[employer] [address] [facility] [place] [address] Laboratory Report Ordering Provider Test Date Status STEFANI MARINELLI 01/12/2020 08:00:00 Final Observation Date Value Abnormality Reference (Units ) Status PT 01/12/2020 10:00 25.4 Above high normal 11.5- 14.6 (seconds) Final INR 01/12/2020 10:00 2.28 Above high normal 0.84- 1.14 Final Performing Location [facility] [place] [facility] [address] [place] [address]
--- OUTSIDE RECORDS SUMMARY | 2023-07-25 05:17 | External Medical Summary ---
Author Name Unknown Address [address] [facility] [place] [address] Phone Organization K0G:[facility] [place] [employer] [facility] [address] [facility] [place] [address] Laboratory Report Ordering Provider Test Date Status YVES,KO 02/28/2020 12:25:00 Final Observation Date Value Abnormality Reference (Units ) Status PT 02/28/2020 13:45 14.0 11.5-14.6 (se conds) Final INR 02/28/2020 13:45 1.08 0.84-1.14 Fin al Performing Location [facility] [place] [facility] [address] [facility] [place] [address]
--- OUTSIDE RECORDS SUMMARY | 2023-07-25 05:17 | External Medical Summary | Summary of Care ---
Author Name Unknown Organization [place] [address] Care Team Providers Care Multimedia Teacher Name Role Phone Roger Alexandra MD Primary Care Provider [phone] Encounter Details Date Type Department Care Team Description 02/27/2020 Documentation Psychiatry, [facility] [address] [place] [address] Alisha Llily, DO [address] [place] [address] Allergies Active Allergy Reactions Severity Noted Date Comments Aspirin Unknown 12/12/2007 von Willebrand's disease Salicylates 03/01/2000 von Willebrand's disease documented as of this encounter (statuses as of 02/27/2020) Medications Medication Sig Dispensed Refills Start Date [...] as of this encounter (statuses as of 02/27/2020) Active Problems Problem Noted Date Oxygen dependent [...] update of inactive term COPD, mild 04/06/2007 residential current use of anticoagulant t herapy 06/01/2005 Overview: ICD-10 update of inactive term Depression with anxiety Tobacco use disorder documented as of this encounter (statuses as of 02/27/2020) Resolved Problems Problem Noted Date Resolved Date [...] as of this encounter (statuses as of 02/27/2020) Immunizations Name Administration Dates Next Due H1N1 [...] Progress Notes * Alisha Lilly DO - 02/27/2020 12:33 PM EDT email [email or web address] * Alisha Lilly DO - 02/27/2020 12:33 PM EDT Called Kimberly about televisit. She was in agreement. Call if doesn't enter virtual waiting room documented in this encounter Plan of Treatment Upcoming Encounters Date Type Specialty Care Team Description 02/28/2020 Laboratory Laboratory Processing [place], Lab Processing Mobile [address] [place] [address] 02/28/2020 Anticoagulation [facility] [place] [address] [facility] [place] [address] 03/05/2020 Telemedicine Psychiatry Alisha Lilly DO [address] [facility] [place] [address] [phone] 03/05/2020 Office Visit Family Medicine Roger Alexandra MD [address] [facility] [place] [address] [phone] Health Maintenance Due Date Last Done Comments [...] on File Type Date Recorded Patient Valve Pipe Irrigator Expl 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 Advanced Directive
--- OUTSIDE RECORDS SUMMARY | 2023-07-25 05:17 | External Medical Summary | Summary of Care ---
Author Name Unknown Organization [facility] Address [place] [address] Care Team Providers Care Machine Assembler For Puller Over Name Role Phone Roger Alexandra MD Primary Care Provider [phone] Reason for Visit * Reason Comments COVID-19 Screening Encounter Details Date Type Department Care Team Description 02/16/2020 Pandemic Screening COVID19 Screening, [place] [address] [place] [address] [place], Covid19 Screening 174 [facility] [place] [address] [phone] Suspected 2019 Novel Coronavirus Infection* Allergies Active Allergy Reactions Severity Noted Date [...] update of inactive term COPD, mild 04/06/2007 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 Cough;Shortness of breath In the last month, have you been in contact with someone who was confirmed or suspected to have Coronavirus / COVID-19? No / Unsure Have you traveled internationally in the last month? No Travel History Travel since 01/16/20 No documented travel since 01/16/20 The patient reports a cough ( dry and productive ). The patient reports chills, headache, body aches. Unaware if she had a fever. The patient reports she is typically on 3 L NC The patient denies any known exposure. O2 in office 94 % on 3 L nc , respirations easy and unlabored at this time. Talking in full sentences. Minor SOB with ambulation to the room but states baseline for her COVID-19 Suspected based on symptoms and travel history Testing ordered COVID 19 Testing documented in this encounter Plan of Treatment Upcoming Encounters Date Type Specialty Care Team Description 02/28/2020 Anticoagulation Pharmacy [facility] [address] [place] [address] 03/05/2020 Telemedicine Psychiatry Alisha Lilly, DO [address] [place] [address] 03/05/2020 Office Visit Family Medicine Roger Alexandra MD [address] [place] [address] [phone] Health Maintenance Due Date Last Done Comments [...] Procedure Name Priority Date/Time Associated Diagnosis Comments COVID-19 (SEND OUT FOR OUTPATIENTS, AND PATIENTS BEING DISCHARGED) Routine 02/16/2020 3:39 PM EDT Suspected 2019 Novel Coronavirus Infection documented in this encounter Results * COVID-19 (SEND OUT FOR OUTPATIENTS, AND PATIENTS BEING DISCHARGED) (02/16/2020 3:39 PM EDT) SOURCE: Nasopharyngeal REFERRED TO [facility] PATIENT SYMPTOMATIC? YESComment:CORRECTED ON 02/18 AT 2350: PREVIOUSLY REPORTED : YES REFERRED TO [facility] OVERALL RESULT: NOT DETECTED Comment: (NOTE) The specimen is NEGATIVE for SARS-CoV-2, the coronavirus associated with COVID-19. A negative result does not rule out the possibility of COVID-19 and should not be used as the sole basis for patient management decisions. NOT DETECTED REFERRED TO [facility] SARS CoV 2 RNA: Negative Negative REFERRED TO [facility] Pro SARS RNA: Negative Comment: (NOTE) Due to the current public health emergency, [facility] is receiving a high volume of samples from a wide variety of swabs and media for COVID-19 testing. In order to serve patients during this public health crisis, samples from appropriate clinical sources are being tested. Negative test results derived from specimens received in non-commercially manufactured viral collection and transport media, or in media and sample collection kits not yet authorized by FDA for COVID-19 testing should be cautiously evaluated and the patient potentially subjected to extra precautions such as additional clinical monitoring, including collection of an additional specimen. This test has been authorized by FDA under an Emergency Use Authorization (EUA) for use by authorized laboratories. Please review the "Fact Sheets" for health care providers, and patients and the FDA authorized labeling available on the [place] [employer] website: www.[employer]. DataKraft/Covid19 Negative REFERRED TO [facility] Specimen Performing Organization Address City/State/Zipcod e Phone Number REFERRED TO [facility] [address] [place] [address] documented in this encounter Visit Diagnoses Diagnosis Suspected 2019 Novel Coronavirus Infection- Primary documented in this encounter Advance Directives Documents on File Type Date Recorded Patient Camera Assembler Expl 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 Advanced Directive
--- OUTSIDE RECORDS SUMMARY | 2023-07-25 05:17 | External Medical Summary ---
Author Name Unknown Address [address] [place] [address] ) Organization K03:[facility] [id number] [place] [address] Laboratory Report Ordering Provider Test Date Status CODY LOMBARDO 02/16/2020 15:39:00 Correction Observation Date Value Abnormality Reference (Units ) Status Source 02/16/2020 15:00 Nasopharyngeal Final Symptom 02/19/2020 23:50 YES Cor rection Performing Location [facility] [address] [place] [address]
--- OUTSIDE RECORDS SUMMARY | 2023-07-25 05:17 | External Medical Summary ---
Author Name Unknown Address [address] [employer] [place] [address] Phone Organization K0G:[facility] Argenis Leija [address] [place], [place] [address]il [facility] [place] [address] Laboratory Report Ordering Provider Test Date Status STEFANI MARINELLI 01/19/2020 08:00:00 Final Observation Date Value Abnormality Reference (Units ) Status PT 01/19/2020 09:51 13.5 11.5-14.6 (se conds) Final INR 01/19/2020 09:51 1.03 0.84-1.14 Fin al Performing Location [facility] [employer] [address] [place] [address]
--- OUTSIDE RECORDS SUMMARY | 2023-07-25 05:17 | External Medical Summary | Summary of Care ---
Author Name Unknown Organization [facility] Address [place] [address] Care Team Providers Care Retirement Officer Name Role Phone Roger Alexandra MD Primary Care Provider [phone] Reason for Visit * Reason Comments COVID-19 Screening Encounter Details Date Type Department Care Team Description 02/16/2020 Pandemic Screening COVID19 Screening, [place] [address] [address] [place], Covid19 Screening 174 [facility] [place] [address] [phone] Suspected 2019 Novel Coronavirus Infection* Allergies Active Allergy Reactions Severity Noted Date Comments Aspirin Unknown 12/12/2007 von Willebrand's disease Salicylates 03/01/2000 von Willebrand's disease documented as of this encounter (statuses as of 02/16/2020) Medications Medication Sig Dispensed Refills Start Date [...] as of this encounter (statuses as of 02/16/2020) Active Problems Problem Noted Date Oxygen dependent [...] of inactive term COPD, mild 04/06/2007 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 t herapy 06/01/2005 Overview: ICD-10 update of inactive term Depression with anxiety Tobacco use disorder documented as of this encounter (statuses as of 02/16/2020) Resolved Problems Problem Noted Date Resolved Date [...] as of this encounter (statuses as of 02/16/2020) Immunizations Name Administration Dates Next Due H1N1 [...] Encounters Date Type Specialty Care Team Description 02/22/2020 Anticoagulation Pharmacy [facility] [address] [place] [address] 03/05/2020 Telemedicine Psychiatry Alisha Lilly, DO [address] [place] [address] 03/05/2020 Office Visit Family Medicine Roger Alexandra MD [address] [place] [address] [phone] Scheduled Orders Name Type Priority Associated Diagnoses Orde r Schedule COVID-19 (SEND OUT FOR OUTPATIENTS, AND PATIENTS BEING DISCHARGED) Lab Routine Suspected 2019 Novel Coronavirus Infection Ordered: 02/16/2020 Health Maintenance Due Date Last Done Comments [...] as of this encounter Visit Diagnoses Diagnosis Suspected 2019 Novel Coronavirus Infection- Primary documented in this encounter Advance Directives Documents on File Type Date Recorded Patient Pyrometer Mechanic Expl 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 Advanced Directive
--- OUTSIDE RECORDS SUMMARY | 2023-07-25 05:17 | External Medical Summary | Summary of Care ---
Author Name Unknown Organization [facility] Address [place] [address] Care Team Providers Care Cutter Down Name Role Phone Roger Alexandra MD Primary Care Provider [phone] Reason for Visit * Reason Comments Dosage Adjustment Via Phone (anticoag Cl inic) Encounter Details Date Type Department Care Team Description 01/26/2020 Anticoagulation Pharmacy, [facility] [address] [place] [address] [address] [place] [address] Idiopathic cardiomyopathy (HCC)* Allergies Active Allergy Reactions Severity Noted Date Comments Aspirin Unknown 12/12/2007 von Willebrand's disease Salicylates 03/01/2000 von Willebrand's disease documented as of this encounter (statuses as of 01/25/2020) Medications Medication Sig Dispensed Refills Start Date [...] as of this encounter (statuses as of 01/25/2020) Active Problems Problem Noted Date Oxygen dependent [...] update of inactive term COPD, mild 04/06/2007 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 (H) Current Warfarin Dose As of 01/26/2020 Warfarin maintenance plan: 10 mg (5 mg x 2) every Mon, Wed, Fri; 5 mg (5 mg x 1) all other days Patient-Reported Symptoms: INR Result As of 01/26/2020 INR goal: 2.0-3.0 INR used for dosin.40! (01/25/2020) Warfarin Plan As of 01/26/2020 Full warfarin instructions: 10 mg every Mon, Wed, Fri; 5 mg all other days Next INR check: 02/01/2020 Additional Dosing Information: Description 5mg SuTuTh, 7.5mg all other days (5mg tabs-takes in AM) Repeat PT/INR in 1 week(s) Weekly dose: increased Abena Moralez [facility] Clinical Pharmacist 01/25/2020, 2:24 PM documented in this encounter Plan of Treatment Upcoming Encounters Date Type Specialty Care Team Description 03/05/2020 Office Visit Psychiatry Alisha Lilly, DO [address] [facility] [place] [place] [address] 03/05/2020 Office Visit Family Medicine Roger Alexandra MD 132 [facility] [place] [address] Health Maintenance Due Date [...] exists *DISCUSS TOBACCO CESSATION (REFER TO SMARTSET #8283) 01/04/2020 LIPID SCREEN EVERY 5 YRS-WOMEN AGE [...] Idiopathic cardiomyopathy (HCC)- Primary Other primary cardiomyopathies documented in this encounter Advance Directives Documents on File Type Date Recorded Patient [employer] Paralegal Expl 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
--- OUTSIDE RECORDS SUMMARY | 2023-07-25 05:18 | External Medical Summary ---
Author Name Unknown Address 132 [facility] [place] [address] Phone Organization K0G:[facility] [employer] [address] [facility] [place] [address] Laboratory Report Ordering Provider Test Date Status ELSA [facility] [id number] Final Obs # Observation Date Value Abnormality Reference Status Performing Location 0 PT [id number] 16.6 Above high normal 11.5-14.6 Final [facility] [employer] [address] [place] [address] 1 INR [id number] 1.38 Above high normal 0.85-1.16 Final [facility] [employer] [address] [employer] [place] [address]
--- OUTSIDE RECORDS SUMMARY | 2023-07-25 05:18 | External Medical Summary ---
Author Name Unknown Address [address] [place] [id number] Phone Organization K01:[facility] [address] [facility] [address] Laboratory Report Ordering Provider Test Date Status MARCELA CARPIO DO [id number] Final Obs # Observation Date Value Abnormality Reference Status Performing Location 0 TSH [id number] 1.86 0.27-4.2 Final [facility] [address] [facility] [address]
--- OUTSIDE RECORDS SUMMARY | 2023-07-25 05:18 | External Medical Summary ---
Author Name Unknown Address [address] [place] [address] [place] [address] Phone Organization K0G:[facility] [place] [address] Laboratory Report Ordering Provider Test Date Status KOURTNEY CHANG [facility] 05/14/2016 11:30:00 Final Obs # Observation Date Value Abnormality Reference Status Performing Location 0 PT 05/14/2016 15:23 16.8 Above high normal 11.5-14.6 Final [facility] Leija [address] [place] [address] [place] [address] 1 INR 05/14/2016 15:23 1.40 Above high normal 0.85-1.16 Final
--- OUTSIDE RECORDS SUMMARY | 2023-07-25 05:18 | External Medical Summary ---
Author Name Unknown Address 132 [facility] [place] [address] Phone Organization K0G:[facility] [address] [facility] [place] [address] Laboratory Report Ordering Provider Test Date Status STEFANI MARINELLI 01/08/2020 14:10:00 Final Observation Date Value Abnormality Reference (Units ) Status PT 01/08/2020 15:29 22.7 Above high normal 11.5- 14.6 (seconds) Final INR 01/08/2020 15:29 1.98 Above high normal 0.84- 1.14 Final Performing Location [facility] [employer] [address] [place] [address]
--- OUTSIDE RECORDS SUMMARY | 2023-07-25 05:18 | External Medical Summary ---
Author Name Unknown Address 132 [facility] [place] [address] Phone Organization K0G:[facility] Leija 132 [facility] [place] [address] Laboratory Report Ordering Provider Test Date Status MARCELA CARPIO DO [id number] Final Obs # Observation Date Value Abnormality Reference Status Performing Location 0 PT [id number] 12.7 11.5-14.6 Final [facility] Leija [address] [place] [address] 1 INR [id number] 0.97 0.85-1.16 Final [facility] Leija [address] [place] [address]
--- OUTSIDE RECORDS SUMMARY | 2023-07-25 05:18 | External Medical Summary ---
Author Name Unknown Address [address] [place] [id number] Phone Organization K01:[facility] [address] [place] [id number] Laboratory Report Ordering Provider Test Date Status MARCELA CARPIO DO [id number] Final Obs # Observation Date Value Abnormality Reference Status Performing Location 0 TSH [id number] 2.08 0.27-4.2 Final [facility] [address] [facility] [address]
--- OUTSIDE RECORDS SUMMARY | 2023-07-25 05:18 | External Medical Summary ---
Author Name Unknown Address 132 [facility] [place] [address] Phone Organization K0G:[facility]ija [address] [place] [address] Laboratory Report Ordering Provider Test Date Status MARCELA CARPIO DO [id number] Final Obs # Observation Date Value Abnormality Reference Status Performing Location 0 PT [id number] 14.8 Above high normal 11.5-14.6 Final [facility] Leija [address] [place] [address] 1 INR [id number] 1.19 Above high normal 0.85-1.16 Final [facility] Le[place] [address] [employer] [place] [address]
--- OUTSIDE RECORDS SUMMARY | 2023-07-25 05:18 | External Medical Summary ---
Author Name Unknown Address 132 [facility] [place] [address] Phone Organization K0G:[facility] [address] [facility] [place] [address] Laboratory Report Ordering Provider Test Date Status VINAY CHEW 12/29/2019 10:22:00 Final Observation Date Value Abnormality Reference (Units ) Status WBC, Total 12/29/2019 10:41 8.07 4.00-10.80 ( K/uL) Final RBC 12/29/2019 10:41 4.46 3.85-5.15 (M/ uL) Final Hemoglobin 12/29/2019 10:41 14.1 12.0-15.3 (g /dL) Final HCT 12/29/2019 10:41 44.1 36.0-45.2 (%) Final MCV 12/29/2019 10:41 98.9 Above high normal 81.5- 97.5 (fL) Final MCH 12/29/2019 10:41 31.6 27.0-34.0 (pg ) Final MCHC 12/29/2019 10:41 32.0 32.0-36.0 (g/ dL) Final RDW 12/29/2019 10:41 14.7 11.5-15.5 (%) Final Platelets 12/29/2019 10:41 399 140-400 (K/uL ) Final MPV 12/29/2019 10:41 8.3 6.6-11.1 (fL) Final Segs 12/29/2019 10:41 63.9 40-75 (%) Fin al Lymphs % 12/29/2019 10:41 29.6 18-42 (%) Fin al Monos 12/29/2019 10:41 6.2 1-11 (%) Fin al Eosinophils 12/29/2019 10:41 0.2 0-6 (%) F inal Basos 12/29/2019 10:41 0.1 0-2 (%) Fin al Neutrophils Bld 12/29/2019 10:41 5.15 1.8-7.7 (K/uL) Final Lymphs, absolute 12/29/2019 10:41 2.39 1.0-4. 8 (K/uL) Final Monos, Abs 12/29/2019 10:41 0.50 0.0-1.1 (K/u L) Final Eos, Abs 12/29/2019 10:41 0.02 0.0-0.7 (K/uL ) Final Basos, Abs 12/29/2019 10:41 0.01 0.0-0.2 (K/u L) Final Performing Location [address] [place] [address]
--- OUTSIDE RECORDS SUMMARY | 2023-07-25 05:18 | External Medical Summary ---
Author Name Unknown Address [address] [place] [address] Phone Organization K09:[facility] [address] [place] [address] Laboratory Report Ordering Provider Test Date Status MARCELA CARPIO DO [id number] Final Obs # Observation Date Value Abnormality Reference Status Performing Location 0 WBC [id number] 9.78 4.00-10.80 Final [facility] [address] [place] [address] 1 RBC [id number] 4.95 3.85-5.15 Final [facility] [address] [place] [address] 2 Hemoglobin [id number] 14.0 12.0-15.3 Final [facility] [address] [place] [address] 3 HCT [id number] 43.3 36.0-45.2 Final [facility] [address] [place] [address] 4 MCV [id number] 87.5 81.5-97.5 Final [facility] [address] [place] [address] 5 MCH [id number] 28.3 27.0-34.0 Final [facility] [address] [place] [address] 6 MCHC [id number] 32.3 32.0-36.0 Final G [facility] [address] [place] [address] 7 RDW [id number] 17.8 Above high normal 11.5-15.5 Final [facility] [address] [place] [address] 8 Platelets [id number] 379 140-400 Final [facility] [address] [place] [address] 9 MPV [id number] 8.3 6.6-11.1 Final [facility] [address] [place] [address]
--- OUTSIDE RECORDS SUMMARY | 2023-07-25 05:18 | External Medical Summary | Summary of Care ---
Author Name Unknown Organization [facility] Address [place] [address] Care Team Providers Care Surgical Corsetier Name Role Phone Roger Alexandra MD Primary Care Provider [phone] Reason for Visit * Reason Comments Appointment Encounter Details Date Type Department Care Team Description 12/29/2019 Telephone Pharmacy, [facility] [address] [facility] [place] [address] [facility] [address] [facility] [place] [address] Appointment Allergies Active Allergy Reactions Severity Noted Date Comments Aspirin Unknown 12/12/2007 von Willebrand's disease Salicylates 03/01/2000 von Willebrand's disease documented as of this encounter (statuses as of 01/11/2020) Medications Medication Sig Dispensed Refills Start Date End Date Status OXYGEN 4 L during the day as needed and at bedtime 0 02/14/2015 Active albuterol-ipratropium (DUONEB) 2.5-0.5 MG/3ML nebulizer solution Inhale 3 mL by mouth every 4 hours as needed for Shortness of Breath or Wheezing. 0 09/27/2015 Active Acetaminophen (TYLENOL) 325 MG CAPS Take by mouth. 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 documented in this encounter Plan of Treatment Upcoming Encounters Date Type Specialty Care Team Description 01/12/2020 Laboratory Laboratory Kasey Leija 132 [facility] [place] [address] [phone] 01/12/2020 Anticoagulation Pharmacy [facility] [address] [place] [address] 03/05/2020 Office Visit Psychiatry Alisha Lilly, DO [address] [facility] [place] [address] 03/05/2020 Office Visit Family Medicine Roger Alexandra MD [address] [place] [address] [phone] Health Maintenance Due Date Last Done Comments [...] exists *DISCUSS TOBACCO CESSATION (REFER TO SMARTSET #9190) 01/04/2020 LIPID SCREEN EVERY 5 YRS-WOMEN AGE [...] on File Type Date Recorded 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
--- OUTSIDE RECORDS SUMMARY | 2023-07-25 05:18 | External Medical Summary ---
Author Name Unknown Address 132 [facility] [place] [address] Phone Organization K0G:[facility] [address] [facility] [place] [address] Laboratory Report Ordering Provider Test Date Status HELEN SALGADO [facility] [id number] Final Obs # Observation Date Value Abnormality Reference Status Performing Location 0 PT [id number] 17.5 Above high normal 11.5-14.6 Final G Argenis Leija [address] [facility] [place] [address] 1 INR [id number] 1.48 Above high normal 0.85-1.16 Final [facility] Argenis Leija [address] [place] [address]
--- OUTSIDE RECORDS SUMMARY | 2023-07-25 05:18 | External Medical Summary | Summary of Care ---
Author Name Unknown Organization [facility] Address [place] [address] Care Team Providers Care Machine Heel Seat Laster Name Role Phone Roger Alexandra MD Primary Care Provider [phone] [phone] Reason for Visit * Reason Comments Dosage Adjustment Via Phone (anticoag Cl inic) Encounter Details Date Type Department Care Team Description 01/01/2020 [facility] [place] [address] [address] [place] [address] Cerebrovascular disease, arteriosclerotic, post-stroke* Allergies Active Allergy Reactions Severity Noted Date Comments Aspirin Unknown 12/12/2007 von Willebrand's disease Salicylates 03/01/2000 von Willebrand's disease documented as of this encounter (statuses as of 01/01/2020) Medications Medication Sig Dispensed Refills Start Date [...] as of this encounter (statuses as of 01/01/2020) Active Problems Problem Noted Date Oxygen dependent [...] of inactive term COPD, mild 04/06/2007 intermediate current use of anticoagulant t herapy 06/01/2005 Overview: ICD-10 update of inactive term Depression with anxiety Tobacco use disorder documented as of this encounter (statuses as of 01/01/2020) Resolved Problems Problem Noted Date Resolved Date [...] as of this encounter (statuses as of 01/01/2020) Immunizations Name Administration Dates Next Due H1N1 [...] Moralez, [facility] - 01/01/2020 3:25 PM EST Medication Therapy Disease Management - Anticoagulation Patient: Kimberly Hung Enoch : 1960 Current Warfarin Dose As of 01/01/2020 Warfarin maintenance plan: No maintenance plan Patient-Reported Symptoms: Patient Findings Negatives: Signs/symptoms of thrombosis, Signs/symptoms of bleeding, Change in health, Change in alcohol use, Change in activity, Upcoming invasive procedure, Missed doses, Extra doses, Change in medications, Change in diet/appetite, Bruising INR Result As of 01/01/2020 INR goal: 2.0-3.0 INR used for dosin.44! (01/01/2020) Warfarin Plan As of 01/01/2020 Full warfarin instructions: 01/01: 10 mg; 01/02: 10 mg; 01/03: 5 mg; 01/04: 5 mg; Otherwise No maintenance plan Next INR check: 01/05/2020 Additional Dosing Information: Description 5mg SuTuTh, 7.5mg all other days (5mg tabs-takes in AM) Patient took couamdin 2.5 mg on 01/01 without instructions from [facility]. Repeat PT/INR in 4 day(s) Weekly dose: not changed Abena Moralez [facility] Clinical Pharmacist 01/01/2020, 3:26 PM documented in this encounter Plan of Treatment Upcoming Encounters Date Type Specialty Care Team Description 01/12/2020 Office Visit Pain Management Se Longoria DO [address] [place] [phone] 03/05/2020 Office Visit [facility] [address] 03/05/2020 Office Visit Family Medicine Roger Alexandra MD [address] [place] [address] [phone] Health Maintenance Due Date Last Done Comments Zoster Vaccines (1 of 2) 2010 *DEPRESSION SCREENING,ANNUAL FOR PTS 12 AND OVER 04/11/2015 *O2 ASSESSMENT COMPLETED IN PAST YEAR FOR COPD 09/07/2016 BREAST CANCER SCREENING DISCUSSION YEARLY AGES 40-75 10/28/2016 10/28/2015, 04/27/2014, 05/12/2013, Additional history exists *TSH FOR THYROID MEDICATION MONITORING YEARLY 03/28/2017 *BASIC METABOLIC PANEL (BMP) FOR HTN YEARLY 05/29/2017 COLONOSCOPY-EVERY 5 YRS AGES 18-100 05/22/2018 05/22/2013, 08/21/2011, 10/06/2010 DTaP,Tdap,and Td Vaccines (2 - Td) 06/27/2018 06/27/2008 Influenza Vaccine (FLU shot) (#1) 2019 08/21/2015, 08/01/2014, 08/09/2013, Additional history exists LIPID [...] on File Type Date Recorded 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
--- OUTSIDE RECORDS SUMMARY | 2023-07-25 05:18 | External Medical Summary | Summary of Care ---
Author Name Unknown Organization [facility] Address [place] [address] Care Team Providers Care Supervisor Meter Shop Name Role Phone Roger Alexandra MD Primary Care Provider [phone] [phone] Reason for Visit * Reason Comments Dosage Adjustment Via Phone (anticoag Cl inic) Encounter Details Date Type Department Care Team Description 01/08/2020 Anticoagulation Pharmacy, [facility] 132 [facility] [place] [address] [facility] 132 [facility] [place] [address] Cerebrovascular disease, arteriosclerotic, post-stroke* Allergies Active Allergy Reactions Severity Noted Date Comments Aspirin Unknown 12/12/2007 von Willebrand's disease Salicylates 03/01/2000 von Willebrand's disease documented as of this encounter (statuses as of 01/08/2020) Medications Medication Sig Dispensed Refills Start Date [...] anticoagulation pharmacist. 60 Tab 5 12/29/2019 Active permethrin (ELIMITE) 5 % cream Apply topically to affected area once for 1 dose. 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 herapy 06/01/2005 Overview: ICD-10 update of inactive term Depression with anxiety Tobacco use disorder documented as of this encounter (statuses as of 01/08/2020) Resolved Problems Problem Noted Date Resolved Date [...] as of this encounter (statuses as of 01/08/2020) Immunizations Name Administration Dates Next Due H1N1 [...] Progress Notes * Abena Moralez, [facility] - 01/08/2020 3:34 PM EST Medication Therapy Disease Management - Anticoagulation Patient: Kimberly Kendall : 1960 Contacts Type Contact Phone 01/08/2020 03:35 PM Phone (Outgoing) Kimberly Kendall (Self) [phone] (H) Current Warfarin Dose As of 01/08/2020 Warfarin maintenance plan: No maintenance plan Patient-Reported Symptoms: INR Result As of 01/08/2020 INR goal: 2.0-3.0 INR used for dosin.98! (01/08/2020) Warfarin Plan As of 01/08/2020 Full warfarin instructions: 01/08: 10 mg; 01/09: 5 mg; 01/10: 5 mg; 01/11: 5 mg; Otherwise No maintenance plan Next INR check: 01/12/2020 Additional Dosing Information: Description 5mg SuTuTh, 7.5mg all other days (5mg tabs-takes in AM) Repeat PT/INR in 4 day(s) Weekly dose: not changed Abena Moralez [facility] Clinical Pharmacist 01/08/2020, 3:36 PM documented in this encounter Plan of Treatment Upcoming Encounters Date Type Specialty Care Team Description 01/12/2020 Office Visit Pain Management Se Longoria DO [address] [place] [address] [phone] 03/05/2020 Office Visit Psychiatry Alisha Lilly DO [address] [facility] [place] [address] 03/05/2020 Office Visit Family Medicine Roger Alexandra MD [address] [place] [phone] Health Maintenance Due Date Last Done Comments [...] Documents on File Type Date Recorded Patient Inspector Brake Lining Expl 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
--- OUTSIDE RECORDS SUMMARY | 2023-07-25 05:18 | External Medical Summary ---
Author Name Unknown Address 132 [facility] [place] [address] Phone Organization K0G:[facility] [address] [place] [address] Laboratory Report Ordering Provider Test Date Status KOURTNEY CHANG [facility] [id number] Final Obs # Observation Date Value Abnormality Reference Status Performing Location 0 PT [id number] 12.7 11.5-14.6 Final [facility] Argenis Leija 132 [facility] [place] [address] 1 INR [id number] 0.97 0.85-1.16 Final [facility] Argeins Leija [address] [facility] [place] [address]
--- OUTSIDE RECORDS SUMMARY | 2023-07-25 05:18 | External Medical Summary | Summary of Care ---
Author Name Unknown Organization [facility] Address [place] [address] Care Team Providers Care Core Sticker Name Role Phone Roger Alexandra MD Primary Care Provider [phone] [phone] Reason for Visit * Reason Comments Dosage Adjustment Via Phone (anticoag Cl inic) Referral Encounter Details Date Type Department Care Team Description 12/29/2019 [facility]tico[facility] Pharmacy, [facility] [place] [address] [facility] [place] [address] Cerebrovascular disease, arteriosclerotic, post-stroke* Allergies Active Allergy Reactions Severity Noted Date Comments Aspirin Unknown 12/12/2007 von Willebrand's disease Salicylates 03/01/2000 von Willebrand's disease documented as of this encounter (statuses as of 12/29/2019) Medications Medication Sig Dispensed Refills Start Date [...] as of this encounter (statuses as of 12/29/2019) Active Problems Problem Noted Date Oxygen dependent [...] update of inactive term COPD, mild 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 Minimum frequency patient should be seen in person for medication management: as appropriate per clinical condition and patient status Patient Phone Numbers Left message for patient via voicemail. Requested a call back to discuss coumadin and restarting itand lab working moving forward. Provided toll free number. Of note from Dr. Alexandra's note: patient has been off coumadin for many years despite multiple CVAs. Follow up in 3 days unless contacted sooner. Discussed with Dr. Alexandra, no need to bridge due to long period of no anticoagulation. Abena Moralez, Pharm D Clinical Pharmacist 12/29/2019, 11:47 AM documented in this encounter Plan of Treatment Upcoming Encounters Date Type Specialty Care Team Description 01/01/2020 Anticoagulation Pharmacy [facility] [address] [place] [address] 01/12/2020 Office Visit Pain Management Se Longoria DO [address] [place] [address] [phone] 03/05/2020 Office Visit Psychiatry Alisha Lilly, DO [address] [facility] [place] [id number] 03/05/2020 Office Visit Family Medicine Roger Alexandra MD 132 [employer] [place] [address] [phone] Health Maintenance Due Date Last Done Comments [...] Td Vaccines (2 - Td) 06/27/2018 06/27/2008 DIABETES SCREEN EVERY 3 YRS-AGE 45 AND ABOVE 05/25/2019 05/25/2016, 03/17/2016, 10/04/2015, Additional history exists Influenza Vaccine (FLU shot) (#1) 2019 08/21/2015, 08/01/2014, 08/09/2013, Additional history exists LIPID SCREEN EVERY 5 YRS-WOMEN AGE 45-75 09/25/2020 09/25/2015, 02/14/2015, 05/01/2011, Additional history exists Pneumococcal Vaccine: Pediatrics (0 [...] Documents on File Type Date Recorded Patient Private Branch Exchange Service Adviser Expl 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
--- OUTSIDE RECORDS SUMMARY | 2023-07-25 05:18 | External Medical Summary ---
Author Name Unknown Address [address] [place] [address] [place] [address] Phone Organization K0G:[facility]isco More Leija 132 [facility] [place] [address] Laboratory Report Ordering Provider Test Date Status VINAY CHEW 12/29/2019 10:23:00 Final Observation Date Value Abnormality Reference (Units ) Status Temp Ur 12/29/2019 10:33 90 90-100 (F) Fi nal Performing Location [facility] [place] [address] [place] [address]
--- OUTSIDE RECORDS SUMMARY | 2023-07-25 05:18 | External Medical Summary | Summary of Care ---
Author Name Unknown Organization [facility] Address [place] [address] Care Team Providers Care Net Lead Developer Name Role Phone Roger Alexandra MD Primary Care Provider [phone] Reason for Visit * Reason Comments Dosage Adjustment Via Phone (anticoag Cl inic) Encounter Details Date Type Department Care Team Description 01/05/2020 [facility]ticoagulation Pharmacy, [facility] [place] [address] [address] [place] [address] Cerebrovascular disease, arteriosclerotic, post-stroke* Allergies Active Allergy Reactions Severity Noted Date Comments Aspirin Unknown 12/12/2007 von Willebrand's disease Salicylates 03/01/2000 von Willebrand's disease documented as of this encounter (statuses as of 01/05/2020) Medications Medication Sig Dispensed Refills Start Date [...] as of this encounter (statuses as of 01/05/2020) Active Problems Problem Noted Date Oxygen dependent [...] as of this encounter (statuses as of 01/05/2020) Resolved Problems Problem Noted Date Resolved Date [...] as of this encounter (statuses as of 01/05/2020) Immunizations Name Administration Dates Next Due H1N1 [...] this encounter Progress Notes * Abena Moralez, [facility] - 01/05/2020 10:35 AM EST Medication Therapy Disease Management - Anticoagulation Patient: Kimberly Hung Buchanan : 1960 Current Warfarin Dose As of 01/05/2020 Warfarin maintenance plan: No maintenance plan Patient-Reported Symptoms: Patient Findings Negatives: Signs/symptoms of thrombosis, Signs/symptoms of bleeding, Change in health, Change in alcohol use, Change in activity, Upcoming invasive procedure, Missed doses, Extra doses, Change in medications, Change in diet/appetite, Bruising INR Result As of 01/05/2020 INR goal: 2.0-3.0 INR used for dosin.31 (01/05/2020) Warfarin Plan As of 01/05/2020 Full warfarin instructions: 01/05: 5 mg; 01/06: 5 mg; 01/07: 5 mg; Otherwise No maintenance plan Next INR check: 01/08/2020 Additional Dosing Information: Description 5mg SuTuTh, 7.5mg all other days (5mg tabs-takes in AM) Repeat PT/INR in 3 day(s) Weekly dose: not changed Abena Moralez [facility] Clinical Pharmacist 01/05/2020, 10:35 AM documented in this encounter Plan of Treatment Upcoming Encounters Date Type Specialty Care Team Description 01/12/2020 Office Visit Pain Management Se Longoria DO [address] [place] [address] [phone] 03/05/2020 Office Visit [facility]iatry [facility]isha Lilly, [facility] [address] 03/05/2020 Office Visit Family Medicine Roger Alexandra MD [address] [place] [address] [phone] Health Maintenance Due Date Last Done Comments [...] exists *DISCUSS TOBACCO CESSATION (REFER TO SMARTSET #0583) 01/04/2020 LIPID SCREEN EVERY 5 YRS-WOMEN AGE [...] on File Type Date Recorded Patient Plate Gauger Expl 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
--- OUTSIDE RECORDS SUMMARY | 2023-07-25 05:18 | External Medical Summary ---
Author Name Unknown Address 132 [facility] [place] [address] Phone Organization K0G:[facility]genis Leija [facility] [place] [address] Laboratory Report Ordering Provider Test Date Status JEEVANVINAY 12/29/2019 10:22:00 Final Observation Date Value Abnormality Reference (Units ) Status BUN 12/29/2019 11:33 14 6-20 (mg/dL) Final Creatinine 12/29/2019 11:33 0.7 0.5-1.0 (mg/ dL) Final E Glom Filt Rate 12/29/2019 11:33 >60.0 >60 Final Performing Location [facility] [employer] [address] [facility] [place] [address]
--- OUTSIDE RECORDS SUMMARY | 2023-07-25 05:18 | External Medical Summary | Summary of Care ---
Author Name Unknown Organization [facility] Address [place] [address] Care Team Providers Care Diamond Sander Name Role Phone Roger Alexandra MD Primary Care Provider [phone] [phone] Reason for Visit * Reason Comments Test Results Encounter Details Date Type Department Care Team Description 12/30/2019 Telephone Family Practice [facility] 132 [facility] [place] [address] Roger Alexandra MD [facility] [place] [address] Test Results Allergies Active Allergy Reactions Severity Noted Date Comments Aspirin Unknown 12/12/2007 von Willebrand's disease Salicylates 03/01/2000 von Willebrand's disease documented as of this encounter (statuses as of 01/04/2020) Medications Medication Sig Dispensed Refills Start Date [...] as of this encounter (statuses as of 01/04/2020) Active Problems Problem Noted Date Oxygen dependent [...] update of inactive term COPD, 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 Tox screen negative. If patient asks, no narcotics will be prescribed. * Telephone Encounter - Eboni Benitez OSA - 12/30/2019 10:55 AM EST Who is Requesting Test Results: Patient Primary Care Provider : Dr. Roger Alexandra Tests Results Requested : Tox Screen, Urine, CBC, CMP, TST Date of Test : 12.29.2019 Location of Test: [facility] Ordering Provider: Dr. Roger Alexandra Callback Number: [phone] Patient has been made aware that the turnaround time for test results are typically as follows: Laboratory results = within 2 days Pathology results (biopsy results/PAP) = 1-2 weeks Radiology results = within 1 week documented in this encounter Plan of Treatment Upcoming Encounters Date Type Specialty Care Team Description 01/05/2020 Laboratory Laboratory Processing [place], Lab Processing Mobile [address] [place], [place] [id number] 01/05/2020 Anticoagulation Pharmacy [facility] [address] [place], [place] [address] 01/12/2020 Office Visit Pain Management Se Longoria DO [address] [place] [address] [phone] 03/05/2020 Office Visit Psychiatry Alisha Lilly DO [address] [place], [place] [id number] 03/05/2020 Office Visit Family Medicine Roger Alexandra MD [address] [facility] [place] [id number] Health Maintenance Due Date Last Done Comments [...] Documents on File Type Date Recorded Patient Bending Roll Hand Expl 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
--- OUTSIDE RECORDS SUMMARY | 2023-07-25 05:18 | External Medical Summary ---
Author Name Unknown Address [address] [place] [address] [place] [address] Phone Organization K0G:[facility] Argenis [address] [place] [address] Laboratory Report Ordering Provider Test Date Status KOURTNEY CHANG [facility] 05/25/2016 11:00:00 Final Obs # Observation Date Value Abnormality Reference Status Performing Location 0 PT 05/25/2016 12:47 29.7 Above high normal 11.5-14.6 Final [facility] Argenis Leija [address] [place] [address] [place] [address] 1 INR 05/25/2016 12:47 2.88 Above high normal 0.85-1.16 Final
--- OUTSIDE RECORDS SUMMARY | 2023-07-25 05:18 | External Medical Summary ---
Author Name Unknown Address 132 [facility] [place] [address] Phone Organization K0G:[facility] Argenis Leija 132 [facility] [place] [address] Laboratory Report Ordering Provider Test Date Status HELEN SALGADO [facility] [id number] Final Obs # Observation Date Value Abnormality Reference Status Performing Location 0 PT [id number] 13.8 11.5-14.6 Final [facility] Argenis Leija [address] [facility] [place] [address] 1 INR [id number] 1.08 0.85-1.16 Final [facility]is Leija [address] [facility] [place] [address]
--- OUTSIDE RECORDS SUMMARY | 2023-07-25 05:18 | External Medical Summary ---
Author Name Unknown Address [address] [place], [place] [address] Phone Organization [place] [address] [place] [address] Laboratory Report Ordering Provider Test Date Status HELEN SALGADO [facility] [id number] Final Obs # Observation Date Value Abnormality Reference Status Performing Location 0 PT [id number] 12.6 11.5-14.6 Final G [facility] [address] [place] [address] 1 INR [id number] 0.96 0.85-1.16 Final G [facility] [address] [place] [address]
--- OUTSIDE RECORDS SUMMARY | 2023-07-25 05:18 | External Medical Summary | Summary of Care ---
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 * Telephone Encounter - Roger Alexandra MD - 01/08/2020 1:25 PM EST rx sent * Telephone Encounter - Mana De Jesus LPN - 01/08/2020 12:52 PM EST See below info: Called pt who states she does not notice any mite burrows. Itching at chin, L ear and arms x 2 days. Pimples noted on chin as of this am. Civilian Technician who has the scabies per pt has been with pt over weekend and today. Requesting med to be called in if applicable. * Telephone Encounter - Deon Araiza OSA - 01/08/2020 12:24 PM EST Patient calling - states her home woodworking machine setter visited her on Wednesday, 01/05, and was diagnosed and treated for a scabies infestation 01/06. Patient states she's felt increasingly itchy since that morning, requesting medication sent if possible. Please advise, thanks. Callback#: [phone] documented in this encounter Plan of Treatment Upcoming Encounters Date Type Specialty Care Team Description 01/12/2020 Office Visit Pain Management Se Longoria DO [address] [place] [address] [phone] 03/05/2020 Office Visit Psychiatry Alisha Lilly DO [address] [place] [address] 03/05/2020 Office Visit Family Medicine Roger Alexandra MD [address] [place] [address] [phone] Health Maintenance Due Date Last Done Comments [...] Documents on File Type Date Recorded Patient Torpedo Specialist Expl 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
--- OUTSIDE RECORDS SUMMARY | 2023-07-25 05:18 | External Medical Summary ---
Author Name Unknown Address [address] [place] [address] Phone Organization K09:[facility] [address] [place] [address] Laboratory Report Ordering Provider Test Date Status HELEN SALGADO [facility] [id number] Final Obs # Observation Date Value Abnormality Reference Status Performing Location 0 PT [id number] 21.1 Above high normal 11.5-14.6 Final [facility] [address] [place] [address] 1 INR [id number] 1.90 Above high normal 0.85-1.16 Final [facility] [address] [place] [address]
--- OUTSIDE RECORDS SUMMARY | 2023-07-25 05:18 | External Medical Summary | Summary of Care ---
Author Name Unknown Organization [facility] [place] [address] Care Team Providers Care Gear Lapper Name Role Phone Roger Alexandra MD Primary Care Provider [phone] Reason for Referral * Ancillary Services (Within 24 hrs (call dept; emergent)) Status Reason Specialty Diagnoses / Procedures Referred By Contact Referred To Contact Pending Review Ancillary Services Required Business Systems Developer Diagnoses Cerebrovascular disease, arterioscleroti c, post-stroke Abena Ko, [facility] [address] [place] [address] Reason for Visit * Reason Comments Dosage Adjustment Via Phone (anticoag Cl inic) Referral Encounter Details Date Type Department Care Team Description 12/29/2019 Anticoagulation Pharmacy, [facility] [address] [place] [address] [facility] [address] [address] Cerebrovascular disease, arteriosclerotic, post-stroke* Allergies Active Allergy [...] of inactive term COPD, 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 Minimum frequency patient should be seen in person for medication management: as appropriate per clinical condition and patient status Patient Phone Numbers Left message for patient via [employer]. Requested a call back to discuss coumadin and restarting itand lab working moving forward. Provided toll free number. Of note from Dr. Alexandra's note: patient has been off coumadin for many years despite multiple CVAs. Follow up in 3 days unless contacted sooner. Discussed with Dr. Alexandra, no need to bridge due to long period of no anticoagulation. Patient returned call and discussed coumadin. Recommending coumadin 10 mg FriSat, 5 mg Sun with repeat pt/inr in 3 days on 01/01 via [facility] home phleb. Patient is home bound. Sending referral to home phleb today as well. Abena Ko, Pharm D Clinical Pharmacist 12/29/2019, 11:47 AM documented in this encounter Miscellaneous Notes * Addendum Note - Abena Ko RPh - 12/29/2019 2:46 PM EST Addended by: ABENA KO on: 12/29/2019 02:46 PM Modules accepted: Orders documented in this encounter Plan of Treatment Upcoming Encounters Date Type Specialty Care Team Description 01/01/2020 Anticoagulation Pharmacy [facility] [address] [place] [address] 01/12/2020 Office Visit Pain Management Se Longoria DO [address] [place] [address] [phone] 03/05/2020 Office Visit Psychiatry Alisha Lilly DO [address] [facility] [place] [address] [phone] 03/05/2020 Office Visit Family Medicine Roger Alexandra MD [address] [place] [address] [phone] Scheduled Referrals Name Type Priority Associated Diagnoses Orde r Schedule HOME PHLEBOTOMY REFERRAL OP Referral Within 24 hrs (call dept; emergent) Cerebrovascular disease, arteriosclerotic, post-stroke Ordered: 12/29/2019 Health Maintenance Due Date Last Done Comments [...] Documents on File Type Date Recorded Patient Park Naturalist Expl 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
--- OUTSIDE RECORDS SUMMARY | 2023-07-25 05:18 | External Medical Summary ---
Author Name Unknown Address [address] [place] [address] Phone Organization K09:[facility] [address] [place] [address] Laboratory Report Ordering Provider Test Date Status BALAJIMARCELA [id number] Final Obs # Observation Date Value Abnormality Reference Status Performing Location 0 BUN [id number] 8 6-[address] [facility] [address] [place] [address] 1 Creatinine [id number] 0.7 0.5-1.1 Final [facility] [address] [place] [address]
--- OUTSIDE RECORDS SUMMARY | 2023-07-25 05:18 | External Medical Summary ---
Author Name Unknown Address [address] [facility] [place] [address] Phone Organization K0G:[employer] [address] [facility] [place] [address] Laboratory Report Ordering Provider Test Date Status STEFANI MARINELLI 01/05/2020 08:30:00 Final Observation Date Value Abnormality Reference (Units ) Status PT 01/05/2020 09:33 25.7 Above high normal 11.5- 14.6 (seconds) Final INR 01/05/2020 09:33 2.31 Above high normal 0.84- 1.14 Final Performing Location [facility] [email or web address] [address] [place] [address]
--- OUTSIDE RECORDS SUMMARY | 2023-07-25 05:18 | External Medical Summary ---
Author Name Unknown Address [address] [facility] [place] [address] Phone Organization K0G:[facility] [address] [place] [address] Laboratory Report Ordering Provider Test Date Status HELEN SALGADO [facility] [id number] Final Obs # Observation Date Value Abnormality Reference Status Performing Location 0 PT [id number] 38.5 Above high normal 11.5-14.6 Final [facility] [address] [place] [address] 1 INR [id number] 4.19 Above high normal 0.85-1.16 Final [facility] [address] [place] [address]
--- OUTSIDE RECORDS SUMMARY | 2023-07-25 05:18 | External Medical Summary | Summary of Care ---
Author Name Unknown Organization [place] [address] Care Team Providers Care Carpenter Form Name Role Phone Roger Alexandra MD Primary Care Provider [phone] Reason for Referral * Evaluate & Treat - Unlimited Visits (Within 10 days (routine)) Status Reason Specialty Diagnoses / Procedures Referred By Contact Referred To Contact Pending Review Specialty Services Required Pain Management Diagnoses Chronic pain syndrome Roger Alexandra MD [address] [place] [address] * Evaluate & Treat - Unlimited Visits (Within 10 days (routine)) Status Reason Specialty Diagnoses / Procedures Referred By Contact Referred To Contact Pending Review Specialty Services Required Psychiatry Diagnoses Depression with anxiety Roger Alexandra MD [address] [place] [address] * Evaluate & Treat - Unlimited Visits (Within 3 days (urgent)) Status Reason Specialty Diagnoses / Procedures Referred By Contact Referred To Contact Pending Review Specialty Services Required ANTI-COAG CLINIC / Pharmacy Diagnoses Cerebrovascular disease, arteriosclerotic , post-stroke Roger Alexandra MD [address] [place] [address] Reason for Visit * Reason Comments NEW PATIENT L leg and hip pain - chronic-[facility], [facility], was on vicodin Encounter Details Date Type Department Care Team Description 12/29/2019 Office Visit [facility] [place] [address] Roger Alexandra MD 132 [place] [address] [phone] Cerebrovascular disease, arteriosclerotic, post-stroke*; Acquired hypothyroidism; Oxygen dependent; Tobacco use disorder; Depression with anxiety; Obstructive sleep apnea; COPD, mild ([facility]); Chronic pain syndrome; Idiopathic cardiomyopathy ([facility]); Disc disorder of lumbar region; Narcotic addiction ([facility]); Von Willebrand disease ([facility]); Obesity, Class I, BMI 30.0-34.9 (see actual BMI); group home current use of anticoagulant therapy Allergies Active Allergy Reactions Severity Noted Date Comments Aspirin Unknown 12/12/2007 von Willebrand's disease Salicylates 03/01/2000 von Willebrand's disease documented as of this encounter (statuses as of 12/29/2019) Medications Medication Sig Dispensed Refills Start Date End Date Status OXYGEN 4 L during the day as needed and at bedtime 0 02/14/2015 Active albuterol-ipratropiu m (DUONEB) 2.5-0.5 MG/3ML nebulizer solution Inhale 3 mL by mouth every 4 hours as needed for Shortness of Breath or Wheezing. 0 09/27/2015 Active Acetaminophen (TYLENOL) 325 MG CAPS Take by mouth. 0 Active mirtazapine (REMERON) 15 MG Tablet Take 15 mg by mouth at bedtime. 0 0 Discontinue d(Patient preference/ discontinua tion) escitalopram (LEXAPRO) 10 MG TabletIndications:De pression with anxiety Take 1 Tab by mouth daily. 30 Tab 5 02/19/2016 0 Discontinue d(Patient preference/ discontinua tion) albuterol (VENTOLIN HFA) 108 (90 BASE) MCG/ACT inhalerIndications:C OPD, mild (HCC) Inhale 2 Puffs by mouth every 4 hours as needed for Wheezing. 3 Inhaler 1 03/17/2016 0 Discontinue d(Patient preference/ discontinua tion) warfarin sodium (COUMADIN) 5 MG TabletIndications:Ce rebrovascular disease, arteriosclerotic, post-stroke Take 7.5mg (1 1/2 tablets) Wed & Sat, 5mg (1 tablet) all other days or as directed. 45 Tab 5 03/17/2016 0 Discontinue d(Patient preference/ discontinua tion) hydrOXYzine (ATARAX) 10 MG Tablet Take 1 Tab by mouth 3 times a day. 40 Tab 2 03/23/2016 0 Discontinue d(Patient preference/ discontinua tion) levothyroxine (LEVOXYL) 200 MCG TabletIndications:Ot her specified hypothyroidism Take 1 Tab by mouth daily. (at least 30 min prior to breakfast or other meds) 30 Tab 11 03/27/2016 0 Discontinue d(Patient preference/ discontinua tion) Gabapentin (NEURONTIN) 600 MG TabletIndications:Di sc disorder of lumbar region Take 1 Tab by mouth 2 times a day. 60 Tab 5 05/13/2016 0 Discontinue d(Discharge d) PredniSONE (DELTASONE) 10 MG TabletIndications:Le ft foot pain Take 4 tabs daily for 3 days, 3 tabs for 3 days, 2 tabs for 3 days 1 tab for 3 days 40 Tab 0 05/26/2016 0 Discontinue d(Patient preference/ discontinua tion) furosemide (LASIX) 40 MG TabletIndications:Ge neralized edema 1 and 1/2 pill in am and 1/2 In pm 45 Tab 1 05/26/2016 0 Discontinue d(Patient preference/ discontinua tion) tiotropium bromide (SPIRIVA HANDIHALER) 18 MCG inhalation Capsule Inhale 1 Cap by mouth daily. For inhaler only, do not swallow. 30 Cap 11 05/26/2016 0 Discontinue d(Patient preference/ discontinua tion) traMADol (ULTRAM) 50 MG TabletIndications:Di sc disorder of lumbar region Take 1 Tab by mouth every 8 hours as needed for Pain. 20 Tab 0 05/26/2016 0 Discontinue d(Patient preference/ discontinua tion) documented [...] Travel End documented as of this encounter Last Filed Vital Signs Vital Sign Reading Time Taken Comments Blood Pressure 122/72 12/29/2019 9:30 AM EST Pulse 60 12/29/2019 9:30 AM EST Temperature 36.2 C (97.1 F) 12/29/2019 9:30 AM ES T Respiratory Rate 16 12/29/2019 9:30 AM EST Oxygen Saturation - - Inhaled Oxygen Concentration - - Weight 108.1 kg (238 lb 6.4 oz) 12/29/2019 9:30 AM EST Height 157.5 cm (5' 2") 12/29/2019 9:30 AM EST Body Mass Index 43.6 12/29/2019 9:30 AM EST documented in this encounter Progress Notes * Roger Alexandra MD - 12/29/2019 10:18 AM EST SUBJECTIVE: Kimberly Kendall is a 59 year old female. CC: Chief Complaint Patient presents with NEW PATIENT L leg and hip pain -chronic-[facility], [facility], was on vicodin Nursing Notes: Susana Prachi, [facility] 12/29/19 0940 Signed The patient has been properly identified by confirmation of name and date of . 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 She was a patient in primary care about 5 years ago but was lost to follow up. By report she's been following with a family practice group in [place]. Right now, her only prescribed medication is neurontin. When I ask her why she is not on her coumadin, thyroid medication, and other chronic medications, she states "they just won't give them to me." She was discharged from her pain clinic in June of 2019 for failing a urine drug screen. She was dishonest with me several times duringthe interview today in regards to her use of narcotics. I asked her if she's used any opiate pain me dication in the past 6 months, and she initially told me now, however when I discussed obtaining a urine drug screen from her today, she states she's been taking her 's vicodin. She is a heavysmoker in spite of severe COPD and oxygen dependence. She is to be taking coumadin for her hx of multiple CVAs, however has not been taking it for many years. Fortunately she has not suffered anotherstroke. At the end of the visit, she tells me that she is taking "12 or 13 tylenol a day." I told her to stop this, because it could kill her. She asks me for opiate pain medication again at this juncture, which I politely but firmly declined. My sense is that she was hoping that I would prescribe her opiate pain medication today. She also tells me that she "stopped seeing her psychiatrist Dr. Israel, because he messed me up even worse than I already was." PHM: Patient Active Problem List Diagnosis Code group home current use of anticoagulant therapy Z79.01 Depression with anxiety F41.8 Tobacco use disorder F17.200 COPD, mild (HCC) J44.9 Obstructive sleep apnea G47.33 Patent foramen ovale Q21.1 Cerebrovascular disease, arteriosclerotic, post-stroke I67.2, Z86.73 Disc disorder of lumbar region M51.9 Obesity, Class I, BMI 30.0-34.9 (see actual BMI) E66.9 Von Willebrand disease (HCC) D68.0 Idiopathic cardiomyopathy (HCC) I42.8 Narcotic addiction (HCC) F11.20 Acquired hypothyroidism E03.9 Oxygen dependent Z99.81 Past Surgical History: Procedure Laterality Date COLONOSCOPY, W/BIOPSY 10/06/10 adenomatous/repeat colonoscopy in 1 yr COLONOSCOPY, W/BIOPSY 05/22/13 hyperplastic polyp EGD, FLEXIBLE, DIAGNOSTIC 02/26/2015 [facility] EGD, FLEXIBLE, W/BIOPSY 05/19/13 EGD, W/ENDOSCOPIC US 11/05/2011 UPPER GI ENDOSCOPY ENDOSCOPIC ULTRASOUND performed by BERENICE ASHBY at ENDOSCOPY [facility]; REPAIR INITIAL INGUINAL HERNIA REMOVE GALLBLADDER [...] Last attempt to quit: 01/17/2015 Years since quittin.9 Smokeless tobacco: Never Used Tobacco comment: will [...] file Social History Narrative Not on file Outpatient Medications Marked as Taking for the 12/29/19 encounter (Office Visit) with Roger Almendarez MD Medication Sig Acetaminophen (TYLENOL) 325 MG CAPS Take by mouth. albuterol-ipratropium (DUONEB) 2.5-0.5 MG/3ML nebulizer solution Inhale 3 mL by mouth every 4 hours as needed for Shortness of Breath or Wheezing. OXYGEN 4 L during the day as needed and at bedtime Review of patient's allergies indicates: Allergen Reactions Aspirin Unknown von Willebrand's disease Salicylates von Willebrand's disease Extensive ROS Constitutional (f/c/wt/vision/hearing): + for chronic fatigue and diffuse pain constantly Resp (cough/sob/bundy): + for SOB when not using oxygen CV (cp/palp/fluttering/diaphoresis/bundy/pnd):Negative GI (n/v/d/hrtburn): Negative Endo (hair/cold or heat intol/ 3 p's): Negative Neuro (shaking/weak/fatigu/parasthesi/): Negative Skin (rash/easy bruis/xerosis): Negative Psy (si/hi/halluc/): + for chronic depression and anxiety (nocturia/hesit/drib/sexual review): Negative Lymph (swollen glands/b sx's/: Negative OBJECTIVE: BP 122/72 | Pulse 60 | Temp (Src) 97.1 (Tympanic) | Resp 16 | Ht 5' 2" (1.575m) | Wt 238 lbs 6.4 oz(108.138kg) | BMI 43.6 kg/m | BSA 2.17 m General: alert, no distress and obese;using supplemental O2 Skin: skin color, texture, turgor are normal, [...] sounds and no masses or organomegaly Extremities: bilateral stasis dermatitis ASSESSMENT/PLAN: Kimberly was seen today for new patient. Diagnoses and all orders for this visit: Cerebrovascular disease, arteriosclerotic, post-stroke - ANTI-COAGULATION REFERRAL OP - COMPR METAB PANEL; Future - CBC/DIFF; Future Acquired hypothyroidism - TSH WITH FREE T4 IF INDICATED; Future Oxygen dependent Tobacco use disorder -not motivated to quit Depression with anxiety - PSYCHIATRY REFERRAL OP Obstructive sleep apnea -uses O2 continuously COPD, mild (HCC) -O2 dependent and continues to smoke Chronic pain syndrome - PAIN MEDICINE REFERRAL OP -avoid narcotics Idiopathic cardiomyopathy (HCC) Disc disorder of lumbar region -apparent source of at least some of her pain Narcotic addiction (HCC) - TOX SCREEN, URINE, W/ CONFIRMATION Von Willebrand disease (HCC) Obesity, Class I, BMI 30.0-34.9 (see actual BMI) -inactive and unfortunately due to multiple health issues she is not a great candidate for an exercise program at this juncture 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 | Check-out note: Schedule with MTM pain management, coumadin clinic, labs today Roger Alexandra MD * Susana Velarde CMA - 12/29/2019 9:38 AM EST Colonoscopy order selected today. Provider aware. documented in this encounter Nursing Notes * Susana Velarde CMA - 12/29/2019 9:37 AM EST The patient has been properly identified by confirmation of name and date of . Chief Complaint Patient presents with NEW PATIENT L leg and hip pain -[facility] documented in this encounter Plan of Treatment Upcoming Encounters Date Type Specialty Care Team Description 01/12/2020 Office Visit Pain Management [place], [address] [place] [address] [phone] 03/05/2020 [facility] Visit [facility] [address] [facility] [id number] 03/05/2020 Office Visit Family Medicine Roger Alexandra MD [address] [place] [address] [phone] Pending Results Name Type Priority Associated Diagnoses Date /Time TSH WITH FREE T4 IF INDICATED Lab Routine Acquired hypothyroidism 12/29/2019 10:22 AM EST COMPR METAB PANEL Lab Routine Cerebrovascular disease, arteriosclerotic, post-stroke 12/29/2019 10:22 AM EST TOX SCREEN, URINE, W/ CONFIRMATION Lab Routine Narcotic addiction (HCC) 12/29/2019 10:23 AM EST Scheduled Orders Name Type Priority Associated Diagnoses Orde r Schedule TSH WITH FREE T4 IF INDICATED Lab Routine Acquired hypothyroidism Expected: 12/29/2019 (Approximate), Expires: 12/28/2020 COMPR METAB PANEL Lab Routine Cerebrovascular disease, arteriosclerotic, post-stroke Expected: 12/29/2019 (Approximate), Expires: 12/28/2020 Scheduled Referrals Name Type Priority Associated Diagnoses Orde r Schedule ANTI-COAGULATION REFERRAL OP Referral Within 3 days (urgent) Cerebrovascular disease, arteriosclerotic, post-stroke Ordered: 12/29/2019 PSYCHIATRY REFERRAL OP Referral Within 10 days (routine) Depression with anxiety Ordered: 12/29/2019 PAIN MEDICINE REFERRAL OP Referral Within 10 days (routine) Chronic pain syndrome Ordered: 12/29/2019 Health Maintenance Due Date Last [...] Procedure Name Priority Date/Time Associated Diagnosis Comments URINE TEMPERATURE Routine 12/29/2019 10: 23 AM EST documented in this encounter Results * URINE TEMPERATURE (12/29/2019 10:23 AM EST) URINE TEMPERATURE 90 90 - 100 F [facility] Specimen Performing Organization Address City/State/Zipcod e Phone Number [facility] [address] [facility] [place] [address] * CBC/DIFF (12/29/2019 10:22 AM EST) WBC 8.07 4.00 - 10.80 K/uL [facility] RBC 4.46 3.85 - 5.15 M/uL [facility] HGB 14.1 12.0 - 15.3 g/dL [facility] HCT 44.1 36.0 - 45.2 % [facility] MCV 98.9(H) 81.5 - 97.5 fL [facility] MCH 31.6 27.0 - 34.0 pg [facility] MCHC 32.0 32.0 - 36.0 g/dL [facility] RDW 14.7 11.5 - 15.5 % [facility] PLATELET COUNT 399 140 - 400 K/uL [facility] MPV 8.3 6.6 - 11.1 fL [facility] NEUTS 63.9 40 - 75 % [facility] LYMPHS 29.6 18 - 42 % [facility] MONOS 6.2 1 - 11 % [facility] EOS 0.2 0 - 6 % [facility] BASOS 0.1 0 - 2 % [facility] ABS. NEUTS 5.15 1.8 - 7.7 K/uL [facility] ABS. LYMPHS 2.39 1.0 - 4.8 K/uL [facility] ABS. MONOS 0.50 0.0 - 1.1 K/uL [facility] ABS. EOS 0.02 0.0 - 0.7 K/uL [facility] ABS. BASOS 0.01 0.0 - 0.2 K/uL [facility] Specimen Performing Organization Address City/State/Zipcod e Phone Number [facility] [address] [facility] [place] [address] documented in this encounter Visit Diagnoses Diagnosis Cerebrovascular disease, arteriosclerotic, post-stroke- Primary Cerebral atherosclerosis Acquired hypothyroidism Unspecified hypothyroidism Oxygen dependent Dependence on supplemental oxygen Tobacco use disorder Depression with anxiety Dysthymic disorder Obstructive sleep apnea Obstructive sleep apnea (adult) (pediatric) COPD, mild (HCC) Chronic airway obstruction, not elsewhere classified Chronic pain syndrome Idiopathic cardiomyopathy (HCC) Other primary cardiomyopathies Disc disorder of lumbar region Other and unspecified disc disorder of lumbar region Narcotic addiction (HCC) Unspecified drug dependence, unspecified Von Willebrand disease (HCC) Von Willebrand's disease Obesity, Class I, BMI 30.0-34.9 (see actual BMI) Obesity, 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
--- OUTSIDE RECORDS SUMMARY | 2023-07-25 05:18 | External Medical Summary ---
Author Name Unknown Address [address] [place] [address] Phone Organization K0G:[facility] Argenis Leija 132 [facility] [place] [address] Laboratory Report Ordering Provider Test Date Status MARCELA CARPIO DO 05/25/2016 10:30:00 Final Obs # Observation Date Value Abnormality Reference Status Performing Location 0 BUN 05/25/2016 13:13 15 6-20 Final [facility] Argenis Leija [address] [place] [address] 1 Creatinine 05/25/2016 13:13 0.6 0.5-1.0 Final
--- OUTSIDE RECORDS SUMMARY | 2023-07-25 05:18 | External Medical Summary ---
Author Name Unknown Address [facility] [place] [address] Phone Organization K01:[place] [address] Laboratory Report Ordering Provider Test Date Status VINAY CHEW 12/29/2019 10:23:00 Final Observation Date Value Abnormality Reference (Units) Status Amphetamines, Urine screen 12/29/2019 18:50 NEGATIVE NEG Final Benzodiazepines, Urine screen 12/29/2019 18:50 NEGATIVE NEG Final Cannabinoids, Urine screen 12/29/2019 18:50 NEGATIVE NEG Final Cocaine Metabolite, Urine screen 12/29/2019 18:50 NEGATIVE NEG Final Hydrocodone Ur Ql Scn 12/29/2019 18:50 NEGATIVE NEG Final Opiates, Urine screen 12/29/2019 18:50 NEGATIVE NEG Final METHADONE METABOLITE 12/29/2019 18:50 NEGATIVE NEG Final Oxycodone Ur Ql Scn 12/29/2019 18:50 NEGATIVE NEG Final Annotation Comment 12/29/2019 18:50 THE ABOVE SCREENING RESULTS ARE PRESUMPTIVE AND CAN ONLY BE USED FOR MEDICAL PURPOSES. POSITIVE RESULTS REFLEX TO CONFIRMATORY TESTING. Final Cutoff Concentration 12/29/2019 18:50 Final Performing Location [address] [address]
--- OUTSIDE RECORDS SUMMARY | 2023-07-25 05:18 | External Medical Summary ---
Author Name Unknown Address [address] [facility] [place] [address] Phone Organization K0G:[facility]is Leija [address] [facility] [place] [address] Laboratory Report Ordering Provider Test Date Status HELEN SALGADO [facility] [id number] Final Obs # Observation Date Value Abnormality Reference Status Performing Location 0 PT [id number] 26.6 Above high normal 11.5-14.6 Final [facility] Argenis Leija [address] [place] [address] 1 INR [id number] 2.57 Above high normal 0.85-1.16 Final [facility] Argenis Leija [address] [facility] [place] [address]
--- OUTSIDE RECORDS SUMMARY | 2023-07-25 05:18 | External Medical Summary ---
Author Name Unknown Address [address] [place] [id number] Phone Organization K01:[facility] [address] [place] [id number] Laboratory Report Ordering Provider Test Date Status MARCEAL CARPIO DO [id number] Final Obs # Observation Date Value Abnormality Reference Status Performing Location 0 T4, Free [id number] 0.65 Below low normal 0.9-1.7 F [facility] [address] [facility] [address]
--- OUTSIDE RECORDS SUMMARY | 2023-07-25 05:18 | External Medical Summary ---
Author Name Unknown Address 132 [facility] [place] [address] Phone Organization K0G:[facility] [employer] [address] [facility] [place] [address] Laboratory Report Ordering Provider Test Date Status STEFANI MARINELLI 01/01/2020 13:20:00 Final Observation Date Value Abnormality Reference (Units ) Status PT 01/01/2020 14:59 17.6 Above high normal 11.5- 14.6 (seconds) Final INR 01/01/2020 14:59 1.44 Above high normal 0.84- 1.14 Final Performing Location [facility] [employer] [address] [place] [address]
--- OUTSIDE RECORDS SUMMARY | 2023-07-25 05:18 | External Medical Summary ---
Author Name Unknown Address Unknown Organization : Laboratory Report Ordering Provider Test Date Status null[facility] [id number] Final Obs # Observation Date Value Abnormality Reference Status Performing Location 0 INR, fingerstick (POC) [id number] 1.6 Final 1 Target range [id number] Final
--- OUTSIDE RECORDS SUMMARY | 2023-07-25 05:18 | External Medical Summary ---
Author Name Unknown Address [address] [place] [phone] Phone Organization K01:[facility] [address] [place] [id number] Laboratory Report Ordering Provider Test Date Status MARCELA CARPIO DO [id number] Final Obs # Observation Date Value Abnormality Reference Status Performing Location 0 T4, Free [id number] 0.58 Below low normal 0.9-1.7 F [facility] [address] [facility] [address]
--- OUTSIDE RECORDS SUMMARY | 2023-07-25 05:18 | External Medical Summary ---
Author Name Unknown Address [address] [facility] [place] [address] Phone Organization K0G:[facility] Argenis [address] [place] [address] Laboratory Report Ordering Provider Test Date Status ELSA PIERCE [facility] 05/04/2016 12:40:00 Final Obs # Observation Date Value Abnormality Reference Status Performing Location 0 PT 05/04/2016 14:35 14.9 Above high normal 11.5-14.6 Final [facility] Argenis Leija [address] [place] [address] [place] [address] 1 INR 05/04/2016 14:35 1.20 Above high normal 0.85-1.16 Final
--- OUTSIDE RECORDS SUMMARY | 2023-07-25 05:18 | External Medical Summary ---
Author Name Unknown Address [address] [place] [address] Phone Organization K0G:[facility]is Leija [facility] [place] [address] Laboratory Report Ordering Provider Test Date Status MARCELA CARPIO DO 05/25/2016 10:30:00 Final Obs # Observation Date Value Abnormality Reference Status Performing Location 0 Magnesium 05/25/2016 13:13 2.2 1.5-2.6 Final [facility] Argenis Leija [address] [place] [address]
--- OUTSIDE RECORDS SUMMARY | 2023-07-25 05:19 | External Medical Summary ---
Author Name Unknown Address 132 [facility] [place] [address] Phone Organization K0G:[facility] Argenis Leija [address] [place] [address] Laboratory Report Ordering Provider Test Date Status BERNARDOKOURTNEY [facility] [id number] Final Obs # Observation Date Value Abnormality Reference Status Performing Location 0 PT [id number] 24.9 Above high normal 11.5-14.6 Final [facility] Argenis Leija [address] [place] [address] 1 INR [id number] 2.33 Above high normal 0.85-1.16 Final [facility] Argenis Leija [address] [employer] [place] [address]
--- OUTSIDE RECORDS SUMMARY | 2023-07-25 05:19 | External Medical Summary ---
Author Name Unknown Organization K0G:[facility], [address] [facility], [facility] [address] Laboratory Report Ordering Provider Test Date Status BERNARDO OCONNELL [facility] 12/12/2014 11:32:00-0500 Final Obs # Observation Date Value ABNL Reference Status Pe rforming Location 1 PT 12/12/2014 15:22-0500 13.0 11.5-14.6 seconds Final 2 INR 12/12/2014 15:22-0500 1.00 0.85-1.16 Final
--- OUTSIDE RECORDS SUMMARY | 2023-07-25 05:19 | External Medical Summary ---
Author Name Unknown Organization K0G:[facility], [address] [place] [address], [facility] [address] Laboratory Report Ordering Provider Test Date Status BERNARDO OCONNELL [facility] 10/22/2014 10:00:00-0500 Final Obs # Observation Date Value ABNL Reference Status Pe rforming Location 1 PT 10/22/2014 13:14-0500 24.4 H 11.5-14.6 seconds Final 2 INR 10/22/2014 13:14-0500 2.27 H 0.85-1.16 Final
--- OUTSIDE RECORDS SUMMARY | 2023-07-25 05:19 | External Medical Summary ---
Author Name Unknown Organization [id number]:[facility], [address] [place] [address], [facility] [address] Laboratory Report Ordering Provider Test Date Status BERNARDO OCONNELL [facility] 11/13/2014 11:23:00-0500 Final Obs # Observation Date Value ABNL Reference Status Pe rforming Location 1 PT 11/13/2014 13:25-0500 56.7 H 11.5-14.6 seconds Final RESULTS RECHECKED RESULTS RECHECKED
--- OUTSIDE RECORDS SUMMARY | 2023-07-25 05:19 | External Medical Summary ---
Author Name Unknown Organization [id number]:[facility], [address] [address] Laboratory Report Ordering Provider Test Date Status CYNTHIA SPRAGUE [facility] 06/25/2014 16:42:00-0400 Final Obs # Observation Date Value ABNL Reference Status Pe rforming Location 1 PT 06/25/2014 21:49-0400 15.6 H 11.5-14.6 seconds Final 2 INR 06/25/2014 21:49-0400 1.27 H 0.85-1.16 Final
--- OUTSIDE RECORDS SUMMARY | 2023-07-25 05:19 | External Medical Summary ---
Author Name Unknown Organization [id number]:[facility] [address] [facility] [address] Laboratory Report Ordering Provider Test Date Status BERNARDO OCONNELL [facility] 04/24/2015 13:48:00-0400 Final Obs # Observation Date Value ABNL Reference Status Pe rforming Location 1 PT 04/24/2015 14:41-0400 25.2 H 11.5-14.6 seconds Final 2 INR 04/24/2015 14:41-0400 2.36 H 0.85-1.16 Final
--- OUTSIDE RECORDS SUMMARY | 2023-07-25 05:19 | External Medical Summary ---
Author Name Unknown Address [address] [phone] Phone Organization K01:[facility] [address] [facility] [address] Laboratory Report Ordering Provider Test Date Status MARCELA CARPIO DO [id number] Final Obs # Observation Date Value Abnormality Reference Status Performing Location 0 Vitamin B12 [id number] [phone] Final [facility] [address] [facility] [address]
--- OUTSIDE RECORDS SUMMARY | 2023-07-25 05:19 | External Medical Summary ---
Author Name Unknown Organization K09:[facility] [address] [place] [address] Laboratory Report Ordering Provider Test Date Status BERNARDO OCONNELL [facility] 03/04/2015 12:02:00-0400 Final Obs # Observation Date Value ABNL Reference Status Pe rforming Location 1 PT 03/04/2015 12:58-0400 14.4 11.5-14.6 seconds Final 2 INR 03/04/2015 12:58-0400 1.14 0.85-1.16 Final
--- OUTSIDE RECORDS SUMMARY | 2023-07-25 05:19 | External Medical Summary ---
Author Name Unknown Organization K01:[facility], [address] [facility] [address] Laboratory Report Ordering Provider Test Date Status TENNILLE CESPEDES 04/24/2015 13:48:00-0400 Final Obs # Observation Date Value ABNL Reference Status Pe rforming Location 1 Iron 04/25/2015 12:56-0400 36 33-151 ug/dL Final
--- OUTSIDE RECORDS SUMMARY | 2023-07-25 05:19 | External Medical Summary ---
Author Name Unknown Organization K0G:[facility], [address] [facility], [facility] [address] Laboratory Report Ordering Provider Test Date Status CYNTHIA SPRAGUE [facility] 08/21/2014 14:42:00-0400 Final Obs # Observation Date Value ABNL Reference Status Pe rforming Location 1 PT 08/21/2014 15:43-0400 30.6 H 11.5-14.6 seconds Final 2 INR 08/21/2014 15:43-0400 3.04 H 0.85-1.16 Final
--- OUTSIDE RECORDS SUMMARY | 2023-07-25 05:19 | External Medical Summary ---
Author Name Unknown Organization K09:[facility] [place] [address] [place] [address] Laboratory Report Ordering Provider Test Date Status BALAJI MEDRANO DO 05/11/2014 12:15:00-0400 Final Obs # Observation Date Value ABNL Reference Status Pe rforming Location 1 BUN 05/11/2014 14:09-0400 10 6-20 mg/dL Final 2 Creatinine 05/11/2014 14:090400 0.6 0.5-1.1 mg/dL Final GFR should be used to assess renal function. Plasma/Serum creatinine may not be able to properly reflect renal function in some cases. If patient is , multiply estimated GFR by 1.159.
--- OUTSIDE RECORDS SUMMARY | 2023-07-25 05:19 | External Medical Summary ---
Author Name Unknown Organization K01:[facility], [address] [address] Laboratory Report Ordering Provider Test Date Status BERNARDO OCONNELL [facility] 05/08/2015 15:40:00-0400 Final Obs # Observation Date Value ABNL Reference Status Pe rforming Location 1 PT 05/08/2015 21:18-0400 19.8 H 11.5-14.6 seconds Final 2 INR 05/08/2015 21:18-0400 1.73 H 0.85-1.16 Final
--- OUTSIDE RECORDS SUMMARY | 2023-07-25 05:19 | External Medical Summary ---
Author Name Unknown Organization K09:[facility] [address] [place] [address] Laboratory Report Ordering Provider Test Date Status BALAJI MEDRANO DO 02/14/2015 09:27:00-0400 Final Obs # Observation Date Value ABNL Reference Status Pe rforming Location 1 BUN 02/14/2015 10:31-0400 16 6-20 mg/dL Final 2 Creatinine 02/14/2015 10:31-0400 0.8 0.5-1.1 mg/dL Final GFR should be used to assess renal function. Plasma/Serum creatinine may not be able to properly reflect renal function in some cases. If patient is , multiply estimated GFR by 1.159.
--- OUTSIDE RECORDS SUMMARY | 2023-07-25 05:19 | External Medical Summary ---
Author Name Unknown Organization K09:[facility] [place] [address] [place] [address] Laboratory Report Ordering Provider Test Date Status BERNARDO OCONNELL [facility] 03/20/2015 11:09:00-0400 Final Obs # Observation Date Value ABNL Reference Status Pe rforming Location 1 PT 03/20/2015 11:52-0400 11.7 11.5-14.6 seconds Final 2 INR 03/20/2015 11:52-0400 0.87 0.85-1.16 Final
--- OUTSIDE RECORDS SUMMARY | 2023-07-25 05:19 | External Medical Summary ---
Author Name Unknown Address [address] [phone] Phone Organization K01:[facility] [address] [id number] Laboratory Report Ordering Provider Test Date Status MARCELA CARPIO DO [id number] Final Obs # Observation Date Value Abnormality Reference Status Performing Location 0 Rheumatoid Factor [id number] <10 <14 Final [facility] [address] [facility] [address]
--- OUTSIDE RECORDS SUMMARY | 2023-07-25 05:19 | External Medical Summary ---
Author Name Unknown Address [address] [phone] Phone Organization K01:[facility] [address] [facility] [address] Laboratory Report Ordering Provider Test Date Status MARCELA CARPIO DO [id number] Final Obs # Observation Date Value Abnormality Reference Status Performing Location 0 ISMAEL, EDUARDO Screen [id number] NEGATIVE Final [facility] [address] [facility] [address]
--- OUTSIDE RECORDS SUMMARY | 2023-07-25 05:19 | External Medical Summary ---
Author Name Unknown Organization K09:[facility] [address] [place] [address] Laboratory Report Ordering Provider Test Date Status PRICE BIRCH MD 04/19/2014 12:08:0 Final Obs # Observation Date Value ABNL Reference Status Pe rforming Location 1 WBC 04/19/2014 12:0 7.76 4.00-10.80 K/uL Final 2 RBC 04/19/2014 12:0 4.38 3.85-5.15 M/uL Final 3 HGB 04/19/2014 12:0 12.6 12.0-14.5 g/dL Final 4 HCT 04/19/2014 12:0 40.4 36.0-44.5 % Final 5 MCV 04/19/2014 12:0400 92.2 81.5-97.5 fL Final 6 MCH 04/19/2014 12:0 28.8 27.0-34.0 pg Final 7 MCHC 04/19/2014 12:0400 31.2 L 32.0-36.0 g/dL Final 8 RDW 04/19/2014 12:0 15.9 H 11.5-15.5 % Final 9 PLT 04/19/2014 12:0 413 H 140-400 K/uL Final 10 MPV 04/19/2014 12:0400 8.2 6.6-11.1 fL Final 11 Segs 04/19/2014 12:0 54 40-75 % Final 12 Lymphocytes 04/19/2014 12:0 33 18-42 % Final 13 Monos 04/19/2014 12:0400 11 1-11 % Final 14 Eosinophils 04/19/2014 12:0400 2 0-6 % Final 15 Basos 04/19/2014 12:0 0 0-2 % Final 16 Segmented Neutrophils, Abs 04/19/2014 12:0400 4.22 1.8-7.7 K/uL Final 17 Lymphs, Abs 04/19/2014 12:19-0400 2.54 1.0-4.8 K/uL Final 18 Monos, Abs 04/19/2014 12:-0400 0.85 0.0-1.1 K/uL Final 19 Eos, Abs 04/19/2014 12:-0400 0.13 0.0-0.7 K/uL Final 20 Basos, Abs 04/19/2014 12:-0400 0.02 0.0-0.2 K/uL Final
--- OUTSIDE RECORDS SUMMARY | 2023-07-25 05:19 | External Medical Summary ---
Author Name Unknown Organization K09:[facility] [address] [facility] [address] Laboratory Report Ordering Provider Test Date Status PRICE BIRCH MD 04/19/2014 12:08:00-0400 Final Obs # Observation Date Value ABNL Reference Status Pe rforming Location 1 BUN 04/19/2014 14:13-0400 12 6-20 mg/dL Final 2 Creatinine 04/19/2014 14:13-0400 0.6 0.5-1.1 mg/dL Final GFR should be used to assess renal function. Plasma/Serum creatinine may not be able to properly reflect renal function in some cases. RESULT MAY BE FALSELY ELEVATED DUE TO HEMOLYSIS If patient is , multiply estimated GFR by 1.159.
--- OUTSIDE RECORDS SUMMARY | 2023-07-25 05:19 | External Medical Summary ---
Author Name Unknown Organization K09:[facility], [address], [place] [address] Laboratory Report Ordering Provider Test Date Status TENNILLE FOREMAN [employer] RECEPTIONIST 04/24/2015 13:48:00-0400 Final Obs # Observation Date Value ABNL Reference Status Pe rforming Location 1 WBC 04/24/2015 13:56-0400 6.10 4.00-10.80 K/uL Final 2 RBC 04/24/2015 13:56-0400 3.98 3.85-5.15 M/uL Final 3 HGB 04/24/2015 13:56-0400 11.6 L 12.0-15.3 g/dL Final 4 HCT 04/24/2015 13:56-0400 36.7 36.0-45.2 % Final 5 MCV 04/24/2015 13:56-0400 92.2 81.5-97.5 fL Final 6 MCH 04/24/2015 13:56-0400 29.1 27.0-34.0 pg Final 7 MCHC 04/24/2015 13:56-0400 31.6 L 32.0-36.0 g/dL Final 8 RDW 04/24/2015 13:56-0400 15.7 H 11.5-15.5 % Final 9 PLT 04/24/2015 13:56-0400 417 H 140-400 K/uL Final 10 MPV 04/24/2015 13:56-0400 8.0 6.6-11.1 fL Final
--- OUTSIDE RECORDS SUMMARY | 2023-07-25 05:19 | External Medical Summary ---
Author Name Unknown Organization K01:[facility], [address] [address] Laboratory Report Ordering Provider Test Date Status PRICE BIRCH MD 04/19/2014 12:08:00-0400 Final Obs # Observation Date Value ABNL Reference Status Pe rforming Location 1 HbA1C 04/19/2014 20:14-0400 5.7 3.4-6.4 % Final 2 Glucose, estimated average 04/19/2014 20:14-0400 117 <126 MG/DL Final
--- OUTSIDE RECORDS SUMMARY | 2023-07-25 05:19 | External Medical Summary ---
Author Name Unknown Address [facility] [place] [address] Phone Organization K01:[place] [address] [address] Laboratory Report Ordering Provider Test Date Status MARCELA CARPIO DO [id number] Final Obs # Observation Date Value Abnormality Reference Status Performing Location 0 B. burgdorferi IgG / IgM Index (Lyme Dz) [id number] NEGATIVE NEG Final [facility] [address] [address] 1 B. burgdorferi IgG / IgM Index (Lyme Dz) 078482180099 0.19 <0.91 [facility] [address] [address] 2 LYME G/M COMMENT [id number] Lyme screen negative,per CDC guidelines Western blot testing not performed. Final [place] [address] [address]
--- OUTSIDE RECORDS SUMMARY | 2023-07-25 05:19 | External Medical Summary ---
Author Name Unknown Address [address] [phone] Phone Organization K01:[facility] [address] [id number] Laboratory Report Ordering Provider Test Date Status MARCELA CARPIO DO [id number] Final Obs # Observation Date Value Abnormality Reference Status Performing Location 0 T4, Free [id number] 2.53 Above high normal 0.9-1.7 Final [facility] [address] [facility] [address]
--- OUTSIDE RECORDS SUMMARY | 2023-07-25 05:19 | External Medical Summary ---
Author Name Unknown Organization K09:[facility], [address], [place] [address] Laboratory Report Ordering Provider Test Date Status BALAJI MEDRANO DO 02/14/2015 09:27:00-0400 Final Obs # Observation Date Value ABNL Reference Status Pe rforming Location 1 WBC 02/14/2015 09:44-0400 12.15 H 4.00-10.80 K/uL Final 2 RBC 02/14/2015 09:44-0400 4.51 3.85-5.15 M/uL Final 3 HGB 02/14/2015 09:44-0400 12.8 12.0-15.3 g/dL Final 4 HCT 02/14/2015 09:44-0400 40.8 36.0-45.2 % Final 5 MCV 02/14/2015 09:44-0400 90.5 81.5-97.5 fL Final 6 MCH 02/14/2015 09:44-0400 28.4 27.0-34.0 pg Final 7 MCHC 02/14/2015 09:44-0400 31.4 L 32.0-36.0 g/dL Final 8 RDW 02/14/2015 09:44-0400 16.8 H 11.5-15.5 % Final 9 PLT 02/14/2015 09:44-0400 367 140-400 K/uL Final 10 MPV 02/14/2015 09:44-0400 7.8 6.6-11.1 fL Final
--- OUTSIDE RECORDS SUMMARY | 2023-07-25 05:19 | External Medical Summary ---
Author Name Unknown Address [address] [place], [place] [address] Phone Organization K09:[facility] [address] [place] [address] Laboratory Report Ordering Provider Test Date Status MARCELA CARPIO DO [id number] Final Obs # Observation Date Value Abnormality Reference Status Performing Location 0 PT [id number] 21.1 Above high normal 11.5-14.6 Final [facility] [address] [place] [address] 1 INR [id number] 1.90 Above high normal 0.85-1.16 Final [facility] [address] [place] [address]
--- OUTSIDE RECORDS SUMMARY | 2023-07-25 05:19 | External Medical Summary ---
Author Name Unknown Organization K01:[facility], [address] [address] Laboratory Report Ordering Provider Test Date Status BALAJI MEDRANO 2014 15:45:00-0400 Final Obs # Observation Date Value ABNL Reference Status Pe rforming Location 1 INR, fingerstick (POC) 2014 15:51-0400 1.2 INR Final 2 Target range 2014 15:51-0400 Final Therapeutic ranges for non-operative patients: Prophylaxsis/treatment of DVT: (Range:2.0-3.0) Treatment of pulmonary embolism:(Range:2.0-3.0) Prevention of systemic embolism from: -tissue heart valves -acute myocardial infarction -valvular heart disease -atrial fibrillation (Range: 2.0-3.0) Mechanical prosthetic valves: (Range: 2.5-3.5)
--- OUTSIDE RECORDS SUMMARY | 2023-07-25 05:19 | External Medical Summary ---
Author Name Unknown Organization K01:[facility], [address] [address] Laboratory Report Ordering Provider Test Date Status BALAJI MARCELA 02/14/2015 09:27:00-0400 Final Obs # Observation Date Value ABNL Reference Status Pe rforming Location 1 TSH 02/14/2015 13:50-0400 2.19 0.27-4.2 uIU/mL Final
--- OUTSIDE RECORDS SUMMARY | 2023-07-25 05:19 | External Medical Summary ---
Author Name Unknown Organization K01:[facility], [address] [address] Laboratory Report Ordering Provider Test Date Status BALAJI MEDRANO DO 03/29/2014 13:34:00-0400 Final Obs # Observation Date Value ABNL Reference Status Pe rforming Location 1 Color, UA 03/29/2014 23:35-0400 HERRERA A YEL Final 2 Clarity, UA 03/29/2014 23:35-0400 TURBID A CLEAR Final 3 Glucose, UA 03/29/2014 23:35-0400 NEGATIVE NEG mg/dL Final 4 Bilirubin, UA 03/29/2014 23:35-0400 NEGATIVE NEG Final 5 Ketones, UA 03/29/2014 23:35-0400 5 A NEG mg/dL Final 6 SPECIFIC GRAVITY 03/29/2014 23:35-0400 1.033 H 1.003-1.030 Final 7 Hemoglobin, qual. UA 03/29/2014 23:35-0400 SMALL A NEG Final 8 pH, UA 03/29/2014 23:35-0400 5.0 5-6 units Final 9 Protein, UA 03/29/2014 23:35-0400 NEGATIVE NEG mg/dL Final 10 Urobilinogen, UA 03/29/2014 23:35-0400 2.0 A NORM EU/dL Final 11 Nitrite, UA 03/29/2014 23:35-0400 NEGATIVE NEG Final 12 Leukocyte Esterase, UA 03/29/2014 23:35-0400 TRACE A NEG Final 13 Bacteria, UA 03/29/2014 23:35-0400 FEW Final 14 WBC, UA 03/29/2014 23:35-0400 1-4 /HPF Final 15 RBC, UA 03/29/2014 23:35-0400 1-4 /HPF Final 16 SQ EPITH CELLS,UA 03/29/2014 23:35-0400 OCCASIONAL Final 17 Mucus, UA 03/29/2014 23:35-0400 MODERATE Final 18 AMORPH CRYSTAL,UA 03/29/2014 23:35-0400 FEW Final
--- OUTSIDE RECORDS SUMMARY | 2023-07-25 05:19 | External Medical Summary ---
Author Name Unknown Organization K09:[facility] [address] [place] [address] Laboratory Report Ordering Provider Test Date Status BERNARDO OCONNELL [facility] 04/16/2015 16:04:00-0400 Final Obs # Observation Date Value ABNL Reference Status Pe rforming Location 1 PT 04/16/2015 16:35-0400 24.7 H 11.5-14.6 seconds Final 2 INR 04/16/2015 16:35-0400 2.30 H 0.85-1.16 Final
--- OUTSIDE RECORDS SUMMARY | 2023-07-25 05:19 | External Medical Summary ---
Author Name Unknown Address [address] [place] [address] Phone Organization K09:[facility] [address] [place] [address] Laboratory Report Ordering Provider Test Date Status BALAJIMARCELA [id number] Final Obs # Observation Date Value Abnormality Reference Status Performing Location 0 BUN [id number] 10 6-20 Final [facility] [address] [place] [address] 1 Creatinine 055245409784 0.8 0.5-1.1 Final [facility] [address] [place] [address]
--- OUTSIDE RECORDS SUMMARY | 2023-07-25 05:19 | External Medical Summary ---
Author Name Unknown Organization K09:[facility] [address] [facility] [address] Laboratory Report Ordering Provider Test Date Status BALAJI MEDRANO DO 10/24/2014 13:32:00-0500 Final Obs # Observation Date Value ABNL Reference Status Pe rforming Location 1 BUN 10/24/2014 14:35-0500 12 6-20 mg/dL Final 2 Creatinine 10/24/2014 14:35-0500 0.7 0.5-1.1 mg/dL Final GFR should be used to assess renal function. Plasma/Serum creatinine may not be able to properly reflect renal function in some cases. If patient is , multiply estimated GFR by 1.159.
--- OUTSIDE RECORDS SUMMARY | 2023-07-25 05:19 | External Medical Summary ---
Author Name Unknown Organization K01:[facility], [address] [id number] Laboratory Report Ordering Provider Test Date Status BALAJI MARCELA 05/08/2015 15:40:00-0400 Final Obs # Observation Date Value ABNL Reference Status Pe rforming Location 1 Iron 05/08/2015 22:05-0400 37 33-151 ug/dL Final
--- OUTSIDE RECORDS SUMMARY | 2023-07-25 05:19 | External Medical Summary ---
Author Name Unknown Address [address] [phone] Phone Organization K01:[facility] [address] [id number] Laboratory Report Ordering Provider Test Date Status MARCELA CARPIO DO [id number] Final Obs # Observation Date Value Abnormality Reference Status Performing Location 0 25-OH Vitamin D total 966862644309 29 >19 Final [facility] [address] [facility] [address]
--- OUTSIDE RECORDS SUMMARY | 2023-07-25 05:19 | External Medical Summary ---
Author Name Unknown Organization K09:[facility] [address] [facility] [address] Laboratory Report Ordering Provider Test Date Status TENNILLE MCCABEAUSTIN BLAKENP 04/24/2015 13:48:00-0400 Final Obs # Observation Date Value ABNL Reference Status Pe rforming Location 1 BUN 04/24/2015 14:27-0400 8 6-20 mg/dL Final 2 Creatinine 04/24/2015 14:27-0400 0.7 0.5-1.1 mg/dL Final GFR should be used to assess renal function. Plasma/Serum creatinine may not be able to properly reflect renal function in some cases. If patient is , multiply estimated GFR by 1.159.
--- OUTSIDE RECORDS SUMMARY | 2023-07-25 05:19 | External Medical Summary ---
Author Name Unknown Organization K09:[facility] Dagoberto bartholomew [facility] [address], [place] [address] Laboratory Report Ordering Provider Test Date Status PRICE BIRCH MD 04/19/2014 12:08:00-0400 Final Obs # Observation Date Value ABNL Reference Status Pe rforming Location 1 PT 04/19/2014 13:160 26.9 H 11.3-14.9 seconds Final 2 INR 04/19/2014 13:160 2.60 H 0.82-1.19 Final
--- OUTSIDE RECORDS SUMMARY | 2023-07-25 05:19 | External Medical Summary ---
Author Name Unknown Address [address] [place] [address] Phone Organization K09:[facility] [address] [place] [address] Laboratory Report Ordering Provider Test Date Status MARCELA CARPIO DO [id number] Final Obs # Observation Date Value Abnormality Reference Status Performing Location 0 WBC [id number] 8.50 4.00-10.80 Final [facility] [address] [place] [address] 1 RBC 366621660111 5.41 Above high normal 3.85-5.15 Final [facility] [address] [place] [address] 2 Hemoglobin 561797698560 14.4 12.0-15.3 Final [facility] [address] [place] [address] 3 HCT [id number] 43.8 36.0-45.2 Final [facility] [address] [place] [address] 4 MCV [id number] 81.0 Below low normal 81.5-97.5 Final [facility] [address] [place] [address] 5 MCH 747791506508 26.6 Below low normal 27.0-34.0 Final [facility] [address] [place] [address] 6 MCHC [id number] 32.9 32.0-36.0 [facility] [address] [place] [address] 7 RDW [id number] 19.2 Above high normal 11.5-15.5 Final [facility] [address] [place] [address] 8 Platelets [id number] 396 140-400 Final [facility] [address] [place] [address] 9 MPV [id number] 8.5 6.6-11.1 Final [facility] [address] [place] [address]
--- OUTSIDE RECORDS SUMMARY | 2023-07-25 05:19 | External Medical Summary ---
Author Name Unknown Organization K0G:[facility], [address] [facility], [facility] [address] Laboratory Report Ordering Provider Test Date Status BERNARDO OCONNELL [facility] 01/28/2015 13:41:00-0400 Final Obs # Observation Date Value ABNL Reference Status Pe rforming Location 1 PT 01/28/2015 15:25-0400 13.1 11.5-14.6 seconds Final 2 INR 01/28/2015 15:25-0400 1.01 0.85-1.16 Final
--- OUTSIDE RECORDS SUMMARY | 2023-07-25 05:19 | External Medical Summary ---
Author Name Unknown Organization K01:[facility], [address] [facility] [address] Laboratory Report Ordering Provider Test Date Status TENNILLE CESPEDES 04/24/2015 13:48:00-0400 Final Obs # Observation Date Value ABNL Reference Status Pe rforming Location 1 Ferritin 04/25/2015 13:31-0400 48.0 13-150 ng/mL Final
--- OUTSIDE RECORDS SUMMARY | 2023-07-25 05:19 | External Medical Summary ---
Author Name Unknown Address [address] [place] [address] Phone Organization K09:[facility] [address] [place] [address] Laboratory Report Ordering Provider Test Date Status BALAJIMARCELA [id number] Final Obs # Observation Date Value Abnormality Reference Status Performing Location 0 BUN [id number] 15 6-20 Final [facility] [address] [place] [address] 1 Creatinine 155544274037 0.6 0.5-1.[address] [facility] [address] [place] [address]
--- OUTSIDE RECORDS SUMMARY | 2023-07-25 05:19 | External Medical Summary ---
Author Name Unknown Organization K01:[facility], [address] [address] Laboratory Report Ordering Provider Test Date Status BALAJI FEKASSY HOLLINS 05/08/2015 15:40:00-0400 Final Obs # Observation Date Value ABNL Reference Status Pe rforming Location 1 Ferritin 05/08/2015 22:13-0400 18.0 13-150 ng/mL Final
--- OUTSIDE RECORDS SUMMARY | 2023-07-25 05:19 | External Medical Summary ---
Author Name Unknown Address [address] [phone] Phone Organization K01:[facility] [address] [id number] Laboratory Report Ordering Provider Test Date Status BALAJIMARCELA [id number] Final Obs # Observation Date Value Abnormality Reference Status Performing Location 0 TSH [id number] <0.01 Below low normal 0.27-4.2 F [facility] [address] [facility] [address]
--- OUTSIDE RECORDS SUMMARY | 2023-07-25 05:19 | External Medical Summary ---
Author Name Unknown Address Unknown Organization : Laboratory Report Ordering Provider Test Date Status null,[facility] [id number] Final Obs # Observation Date Value Abnormality Reference Status Performing Location 0 INR, fingerstick (POC) [id number] 1.2 Final 1 Target range [id number] Final
--- OUTSIDE RECORDS SUMMARY | 2023-07-25 05:19 | External Medical Summary ---
Author Name Unknown Address [address] [id number] Phone Organization K01:[facility] [address] [address] Laboratory Report Ordering Provider Test Date Status KOURTNEY CHANG [facility] [id number] Final Obs # Observation Date Value Abnormality Reference Status Performing Location 0 PT [id number] 29.2 Above high normal 11.5-14.6 Final [facility] [address] [facility] [address] 1 INR [id number] 2.91 Above high normal 0.85-1.16 Final [facility] [address] [facility] [address]
--- OUTSIDE RECORDS SUMMARY | 2023-07-25 05:19 | External Medical Summary ---
Author Name Unknown Organization K01:[facility], [address] [address] Laboratory Report Ordering Provider Test Date Status BALAJI MEDRANO DO 02/14/2015 09:27:00-0400 Final Obs # Observation Date Value ABNL Reference Status Pe rforming Location 1 LDL, (direct) 02/14/2015 13:26-0400 138 H 0-129 mg/dL Final LDL CHOLESTEROL REFERENCE RANGES(mg/dL) <100 OPTIMAL GOAL FOR HIGH RISK PATIENTS 100-129 NEAR OR ABOVE NORMAL 130-159 BORDERLINE HIGH 160-189 HIGH >189 VERY HIGH
--- OUTSIDE RECORDS SUMMARY | 2023-07-25 05:20 | External Medical Summary ---
Author Name Unknown Organization K01:[facility], [address] [address] Laboratory Report Ordering Provider Test Date Status [facility] 05/29/2013 13:25:00-0400 Fin al Obs # Observation Date Value ABNL Reference Status Pe rforming Location 1 INR, fingerstick (POC) 05/29/2013 13:35-0400 1.6 INR Final 2 Target range 05/29/2013 13:35-0400 Final Therapeutic ranges for non-operative patients: Prophylaxsis/treatment of DVT: (Range:2.0-3.0) Treatment of pulmonary embolism:(Range:2.0-3.0) Prevention of systemic embolism from: -tissue heart valves -acute myocardial infarction -valvular heart disease -atrial fibrillation (Range: 2.0-3.0) Mechanical prosthetic valves: (Range: 2.5-3.5)
--- OUTSIDE RECORDS SUMMARY | 2023-07-25 05:20 | External Medical Summary ---
Author Name Unknown Organization K09:[facility], [address], [place] [address] Laboratory Report Ordering Provider Test Date Status BALAJI MEDRANO DO 12/01/2013 09:40:00-0500 Final Obs # Observation Date Value ABNL Reference Status Pe rforming Location 1 WBC 12/01/2013 10:50-0500 8.48 4.00-10.80 K/uL Final 2 RBC 12/01/2013 10:50-0500 4.23 3.85-5.15 M/uL Final 3 HGB 12/01/2013 10:50-0500 12.7 12.0-14.5 g/dL Final 4 HCT 12/01/2013 10:50-0500 39.7 36.0-44.5 % Final 5 MCV 12/01/2013 10:50-0500 93.9 81.5-97.5 fL Final 6 MCH 12/01/2013 10:50-0500 30.0 27.0-34.0 pg Final 7 MCHC 12/01/2013 10:50-0500 32.0 32.0-36.0 g/dL Final 8 RDW 12/01/2013 10:50-0500 16.9 H 11.5-15.5 % Final 9 PLT 12/01/2013 10:50-0500 351 140-400 K/uL Final 10 MPV 12/01/2013 10:50-0500 8.5 6.6-11.1 fL Final
--- OUTSIDE RECORDS SUMMARY | 2023-07-25 05:20 | External Medical Summary ---
Author Name Unknown Organization K09:[facility] [address] [facility] [address] Laboratory Report Ordering Provider Test Date Status CYNTHIA SPRAGUE [facility] 02/09/2014 11:59:00-0400 Final Obs # Observation Date Value ABNL Reference Status Pe rforming Location 1 PT 02/09/2014 14:40-0400 12.8 11.3-14.9 seconds Final 2 INR 02/09/2014 14:40-0400 0.97 0.82-1.19 Final
--- OUTSIDE RECORDS SUMMARY | 2023-07-25 05:20 | External Medical Summary ---
Author Name Unknown Organization K09:[facility] [address] [facility] [address] Laboratory Report Ordering Provider Test Date Status BALAJI MEDRANO DO 12/01/2013 09:40:00-0500 Final Obs # Observation Date Value ABNL Reference Status Pe rforming Location 1 BUN 12/01/2013 11:10-0500 10 6-20 mg/dL Final 2 Creatinine 12/01/2013 11:10-0500 0.6 0.5-1.1 mg/dL Final GFR should be used to assess renal function. Plasma/Serum creatinine may not be able to properly reflect renal function in some cases.
--- OUTSIDE RECORDS SUMMARY | 2023-07-25 05:20 | External Medical Summary ---
Author Name Unknown Organization K09:[facility] [address] [place] [address] Laboratory Report Ordering Provider Test Date Status BALAJI MARCELA 03/27/2014 15:00:00-0400 Final Obs # Observation Date Value ABNL Reference Status Pe rforming Location 1 specimen 03/27/2014 15:11-0400 URINE Final 2 result 03/28/2014 13:45-0400 MULTIPLE URSULA SUGGESTS CONTAMINATION Final 3 report status 03/28/2014 13:45-0400 03/28/2014 FINAL Final
--- OUTSIDE RECORDS SUMMARY | 2023-07-25 05:20 | External Medical Summary ---
Author Name Unknown Organization K01:[facility], [address] [address] Laboratory Report Ordering Provider Test Date Status HARINI WAGNER 03/08/2014 10:22:00-0400 Final Obs # Observation Date Value ABNL Reference Status Pe rforming Location 1 Amphetamines, Urine screen 4 17:47-040 0 NEGATIVE NEG Final 2 Barbiturates, Urine screen 4 17:47-040 0 NEGATIVE NEG Final 3 Benzodiazepines, Urine screen 4 17:47-040 0 NEGATIVE NEG Final 4 Cannabinoids, Urine screen 4 17:47-040 0 NEGATIVE NEG Final 5 Cocaine Metabolite, Urine screen 4 17:47-040 0 NEGATIVE NEG Final 6 Opiates, Urine screen 4 17:47-040 0 NEGATIVE NEG Final 7 METHADONE METABOLITE 4 17:47-040 0 NEGATIVE NEG Final 8 OXYCODONE 4 17:47-040 0 POSITIVE A NEG Final 9 NOTE: 4 17:47-040 0 THE ABOVE SCREENING RESULTS ARE PRESUMPTIVE AND CAN ONLY BE USED FOR MEDICAL PURPOSES. POSITIVE RESULTS REFLEX TO CONFIRMATORY TESTING. Final 10 Cutoff Concentration 4 17:47-040 0 Final Drug Level Amphetamines 500 ng/mL Barbiturates 200 ng/mL Benzodiazepines 100 ng/mL Cannabinoids 50 ng/mL Cocaine Metabolite 150 ng/mL Opiates 300 ng/mL Oxycodone 100 ng/mL Methadone Metabolite 100 ng/mL
--- OUTSIDE RECORDS SUMMARY | 2023-07-25 05:20 | External Medical Summary ---
Author Name MARCELA Organization K01:[facility], [address] [address] Support Name Relationship Address Phone BALAJI MEDRANO DO Unknown Unavailable Laboratory Report Ordering Provider Test Date Status BALAJI FEKASSY HOLLINS 05/11/2013 14:42:00-0400 Final Obs # Observation Date Value ABNL Reference Status Pe rforming Location 1 specimen 05/11/2013 14:42-0400 CLEAN CATCH URINE Final 2 result 05/12/2013 14:21-0400 LESS THAN 10,000 COLONIES/ML MIXED URSULA Final 3 report status 05/12/2013 14:21-0400 05/12/2013 FINAL Final
--- OUTSIDE RECORDS SUMMARY | 2023-07-25 05:20 | External Medical Summary ---
Author Name Unknown Organization K01:[facility], [address] [address] Laboratory Report Ordering Provider Test Date Status CYNTHIA SPRAGUE [facility] 10/31/2013 13:10:00-0500 Final Obs # Observation Date Value ABNL Reference Status Pe rforming Location 1 PT 10/31/2013 21:43-0500 13.8 11.3-14.9 seconds Final 2 INR 10/31/2013 21:43-0500 1.07 0.82-1.19 Final
--- OUTSIDE RECORDS SUMMARY | 2023-07-25 05:20 | External Medical Summary ---
Author Name [facility] Organization K01:[facility], [address] [address] Support Name Relationship Address Phone [facility] BERNARDO CUELLAR Unknown Unavailable Laboratory Report Ordering Provider Test Date Status BERNARDO [facility] 12/19/2012 13:48:00-0500 Final Obs # Observation Date Value ABNL Reference Status Pe rforming Location 1 PT 12/19/2012 21:29-0500 22.3 H 11.2-14.2 seconds Final 2 INR 12/19/2012 21:29-0500 2.10 H 0.85-1.16 Final
--- OUTSIDE RECORDS SUMMARY | 2023-07-25 05:20 | External Medical Summary ---
Author Name [facility] Organization K01:[facility], [address] [address] Support Name Relationship Address Phone [facility], BERNARDO CUELLAR Unknown Unavailable Laboratory Report Ordering Provider Test Date Status BERNARDO [facility] 10/14/2012 14:08:00-0500 Final Obs # Observation Date Value ABNL Reference Status Pe rforming Location 1 PT 10/14/2012 21:31-0500 20.2 H 11.2-14.2 seconds Final 2 INR 10/14/2012 21:31-0500 1.85 H 0.85-1.16 Final
--- OUTSIDE RECORDS SUMMARY | 2023-07-25 05:20 | External Medical Summary ---
Author Name Unknown Organization K01:[facility], [address] [address] Laboratory Report Ordering Provider Test Date Status BALAJI MEDRANO 03/27/2014 15:24:00-0400 Final Obs # Observation Date Value ABNL Reference Status Pe rforming Location 1 BUN 03/27/2014 22:50-0400 15 6-20 mg/dL Final 2 Creatinine 03/27/2014 22:50-0400 0.7 0.5-1.1 mg/dL Final GFR should be used to assess renal function. Plasma/Serum creatinine may not be able to properly reflect renal function in some cases. If patient is , multiply estimated GFR by 1.159.
--- OUTSIDE RECORDS SUMMARY | 2023-07-25 05:20 | External Medical Summary ---
Author Name Unknown Organization K01:[facility], [address] [address] Laboratory Report Ordering Provider Test Date Status CYNTHIA SPRAGUE [facility] 03/19/2014 16:32:00-0400 Final Obs # Observation Date Value ABNL Reference Status Pe rforming Location 1 PT 03/19/2014 21:18-0400 23.3 H 11.3-14.9 seconds Final 2 INR 03/19/2014 21:18-0400 2.15 H 0.82-1.19 Final
--- OUTSIDE RECORDS SUMMARY | 2023-07-25 05:20 | External Medical Summary ---
Author Name [facility] Organization K09:[facility] [address] [place] [address] Support Name Relationship Address Phone [facility], BERNARDO ALISA Unknown Unavailable Laboratory Report Ordering Provider Test Date Status BERNARDO [facility] 02/21/2013 10:20:00-0400 Final Obs # Observation Date Value ABNL Reference Status Pe rforming Location 1 PT 02/21/2013 14:47-0400 22.4 H 11.2-14.2 seconds Final 2 INR 02/21/2013 14:47-0400 2.11 H 0.85-1.16 Final
--- OUTSIDE RECORDS SUMMARY | 2023-07-25 05:20 | External Medical Summary ---
Author Name Unknown Organization K01:[facility], [address] [address] Laboratory Report Ordering Provider Test Date Status HARINI WAGNER 03/08/2014 10:22:00-0400 Final Obs # Observation Date Value ABNL Reference Status Pe rforming Location 1 URINE VALID INTERP 03/08/2014 17:47-0400 NORMAL Final 2 CREATININE NARESH 03/08/2014 17:47-0400 252 mg/dL Final 3 NITRITE NARESH 03/08/2014 17:47-0400 38 ug/mL Final 4 pH NARESH 03/08/2014 17:47-0400 5.1 Final
--- OUTSIDE RECORDS SUMMARY | 2023-07-25 05:20 | External Medical Summary ---
Author Name Unknown Organization K01:[facility], [address] [address] Laboratory Report Ordering Provider Test Date Status CYNTHIA SPRAGUE [facility] 01/23/2014 15:18:00-0400 Final Obs # Observation Date Value ABNL Reference Status Pe rforming Location 1 PT 01/23/2014 21:48-0400 13.7 11.3-14.9 seconds Final 2 INR 01/23/2014 21:48-0400 1.06 0.82-1.19 Final
--- OUTSIDE RECORDS SUMMARY | 2023-07-25 05:20 | External Medical Summary ---
Author Name [facility] Organization K01:[facility], [address] [address] Support Name Relationship Address Phone [facility] PROV Unknown Unavaila ble Laboratory Report Ordering Provider Test Date Status [facility] 08/03/2012 11:13:00-0400 Fin al Obs # Observation Date Value ABNL Reference Status Pe rforming Location 1 INR, fingerstick (POC) 08/03/2012 11:090400 1.2 INR Final 2 Target range 08/03/2012 11:09-0400 Final Therapeutic ranges for non-operative patients: Prophylaxsis/treatment of DVT: (Range:2.0-3.0) Treatment of pulmonary embolism:(Range:2.0-3.0) Prevention of systemic embolism from: -tissue heart valves -acute myocardial infarction -valvular heart disease -atrial fibrillation (Range: 2.0-3.0) Mechanical prosthetic valves: (Range: 2.5-3.5)
--- OUTSIDE RECORDS SUMMARY | 2023-07-25 05:20 | External Medical Summary ---
Author Name MARCELA HOLLINS Organization K09:[facility] [address], [place] [address] Support Name Relationship Address Phone BALAJI MEDRANO DO Unknown Unavailable Laboratory Report Ordering Provider Test Date Status BALAJI MEDRANO DO 10/26/2012 12:21:00-0500 Final Obs # Observation Date Value ABNL Reference Status Pe rforming Location 1 WBC 10/26/2012 12:34-0500 9.81 4.00-10.80 K/uL Final 2 RBC 10/26/2012 12:34-0500 4.26 3.85-5.15 M/uL Final 3 HGB 10/26/2012 12:34-0500 13.5 12.0-14.5 g/dL Final 4 HCT 10/26/2012 12:34-0500 40.8 36.0-44.5 % Final 5 MCV 10/26/2012 12:34-0500 95.8 81.5-97.5 fL Final 6 MCH 10/26/2012 12:34-0500 31.7 27.0-34.0 pg Final 7 MCHC 10/26/2012 12:34-0500 33.1 32.0-36.0 g/dL Final 8 RDW 10/26/2012 12:34-0500 14.9 11.5-15.5 % Final 9 PLT 10/26/2012 12:34-0500 388 140-400 K/uL Final 10 MPV 10/26/2012 12:34-0500 8.2 6.6-11.1 fL Final 11 diff type 10/26/2012 12:34-0500 AUTO Final 12 Segs 10/26/2012 12:35-0500 62 40-75 % Final 13 Lymphocytes 10/26/2012 12:35-0500 32 18-42 % Final 14 Monos 10/26/2012 12:35-0500 6 1-11 % Final 15 Segmented Neutrophils, Abs 10/26/2012 12:35-0500 6.08 1.8-7.7 K/uL Final 16 Lymphs, Abs 10/26/2012 12:35-0500 3.14 1.0-4.8 K/uL Final 17 Monos, Abs 10/26/2012 12:35-0500 0.59 0.0-1.1 K/uL Final
--- OUTSIDE RECORDS SUMMARY | 2023-07-25 05:20 | External Medical Summary ---
Author Name Unknown Organization K01:[facility], [address] [address] Laboratory Report Ordering Provider Test Date Status BALAJI MARCELA 03/27/2014 15:24:00-0400 Final Obs # Observation Date Value ABNL Reference Status Pe rforming Location 1 TSH 03/27/2014 23:31-0400 0.38 0.27-4.2 uIU/mL Final
--- OUTSIDE RECORDS SUMMARY | 2023-07-25 05:20 | External Medical Summary ---
Author Name [facility] Organization K01:[facility], [address] [address] Support Name Relationship Address Phone [facility], BERNARDO CUELLAR Unknown Unavailable Laboratory Report Ordering Provider Test Date Status BERNARDO [facility] 08/17/2012 14:35:00-0400 Final Obs # Observation Date Value ABNL Reference Status Pe rforming Location 1 PT 08/17/2012 22:08-0400 27.7 H 11.2-14.2 seconds Final 2 INR 08/17/2012 22:08-0400 2.80 H 0.85-1.16 Final
--- OUTSIDE RECORDS SUMMARY | 2023-07-25 05:20 | External Medical Summary ---
Author Name MARCELA HOLLINS Organization K09:[facility], [address], [place] [address] Support Name Relationship Address Phone BALAJI MEDRANO DO Unknown Unavailable Laboratory Report Ordering Provider Test Date Status BALAJI MEDRANO DO 10/24/2012 16:43:00-0500 Final Obs # Observation Date Value ABNL Reference Status Pe rforming Location 1 WBC 10/24/2012 16:54-0500 17.28 H 4.00-10.80 K/uL Final 2 RBC 10/24/2012 16:54-0500 4.44 3.85-5.15 M/uL Final 3 HGB 10/24/2012 16:54-0500 14.1 12.0-14.5 g/dL Final 4 HCT 10/24/2012 16:54-0500 42.5 36.0-44.5 % Final 5 MCV 10/24/2012 16:54-0500 95.7 81.5-97.5 fL Final 6 MCH 10/24/2012 16:54-0500 31.8 27.0-34.0 pg Final 7 MCHC 10/24/2012 16:54-0500 33.2 32.0-36.0 g/dL Final 8 RDW 10/24/2012 16:54-0500 14.9 11.5-15.5 % Final 9 PLT 10/24/2012 16:54-0500 404 H 140-400 K/uL Final 10 MPV 10/24/2012 16:54-0500 8.2 6.6-11.1 fL Final
--- OUTSIDE RECORDS SUMMARY | 2023-07-25 05:20 | External Medical Summary ---
Author Name Unknown Organization K01[facility], [address] [address] Laboratory Report Ordering Provider Test Date Status [facility] 08/09/2013 15:45:00-0400 Fin al Obs # Observation Date Value ABNL Reference Status Pe rforming Location 1 INR, fingerstick (POC) 08/09/2013 15:55-0400 1.6 INR Final 2 Target range 08/09/2013 15:55-0400 Final Therapeutic ranges for non-operative patients: Prophylaxsis/treatment of DVT: (Range:2.0-3.0) Treatment of pulmonary embolism:(Range:2.0-3.0) Prevention of systemic embolism from: -tissue heart valves -acute myocardial infarction -valvular heart disease -atrial fibrillation (Range: 2.0-3.0) Mechanical prosthetic valves: (Range: 2.5-3.5)
--- OUTSIDE RECORDS SUMMARY | 2023-07-25 05:20 | External Medical Summary ---
Author Name [facility] Organization K09:[facility] [address] [place] [address] Support Name Relationship Address Phone [facility], BERNARDO CUELLAR Unknown Unavailable Laboratory Report Ordering Provider Test Date Status BERNARDO [facility] 11/16/2012 12:11:00-0500 Final Obs # Observation Date Value ABNL Reference Status Pe rforming Location 1 PT 11/16/2012 14:57-0500 15.1 H 11.2-14.2 seconds Final 2 INR 11/16/2012 14:57-0500 1.26 H 0.85-1.16 Final
--- OUTSIDE RECORDS SUMMARY | 2023-07-25 05:20 | External Medical Summary ---
Author Name Unknown Organization K09:[facility], [address], [place] [address] Laboratory Report Ordering Provider Test Date Status BALAJI MEDRANO DO 10/16/2013 11:55:00-0500 Final Obs # Observation Date Value ABNL Reference Status Pe rforming Location 1 WBC 10/16/2013 12:12-0500 12.70 H 4.00-10.80 K/uL Final 2 RBC 10/16/2013 12:12-0500 4.54 3.85-5.15 M/uL Final 3 HGB 10/16/2013 12:12-0500 13.6 12.0-14.5 g/dL Final 4 HCT 10/16/2013 12:12-0500 42.1 36.0-44.5 % Final 5 MCV 10/16/2013 12:12-0500 92.7 81.5-97.5 fL Final 6 MCH 10/16/2013 12:12-0500 30.0 27.0-34.0 pg Final 7 MCHC 10/16/2013 12:12-0500 32.3 32.0-36.0 g/dL Final 8 RDW 10/16/2013 12:12-0500 16.5 H 11.5-15.5 % Final 9 PLT 10/16/2013 12:12-0500 404 H 140-400 K/uL Final 10 MPV 10/16/2013 12:12-0500 7.7 6.6-11.1 fL Final
--- OUTSIDE RECORDS SUMMARY | 2023-07-25 05:20 | External Medical Summary ---
Author Name MARCELA HOLLINS Organization K01:[facility], [address] [address] Support Name Relationship Address Phone MARCELA BALAJI Unknown Unavailable Laboratory Report Ordering Provider Test Date Status BALAJI MEDRANO DO 05/08/2013 08:26:00-0400 Final Obs # Observation Date Value ABNL Reference Status Pe rforming Location 1 TSH 05/08/2013 13:51-0400 1.33 0.27-4.2 uIU/mL Final
--- OUTSIDE RECORDS SUMMARY | 2023-07-25 05:20 | External Medical Summary ---
Author Name [facility] Organization K01:[facility], [address] [address] Support Name Relationship Address Phone [facility] PROV Unknown Unavaila ble Laboratory Report Ordering Provider Test Date Status [facility] 04/05/2013 10:51:00-0400 Fin al Obs # Observation Date Value ABNL Reference Status Pe rforming Location 1 INR, fingerstick (POC) 04/05/2013 10:47-0400 1.6 INR Final 2 Target range 04/05/2013 10:47-0400 Final Therapeutic ranges for non-operative patients: Prophylaxsis/treatment of DVT: (Range:2.0-3.0) Treatment of pulmonary embolism:(Range:2.0-3.0) Prevention of systemic embolism from: -tissue heart valves -acute myocardial infarction -valvular heart disease -atrial fibrillation (Range: 2.0-3.0) Mechanical prosthetic valves: (Range: 2.5-3.5)
--- OUTSIDE RECORDS SUMMARY | 2023-07-25 05:20 | External Medical Summary ---
Author Name [facility] Organization K01:[facility], [address] [address] Support Name Relationship Address Phone [facility], BERNARDO CUELLAR Unknown Unavailable Laboratory Report Ordering Provider Test Date Status BERNARDO [facility] 03/22/2013 15:10:00-0400 Final Obs # Observation Date Value ABNL Reference Status Pe rforming Location 1 PT 03/22/2013 22:59-0400 15.0 H 11.2-14.2 seconds Final 2 INR 03/22/2013 22:59-0400 1.25 H 0.85-1.16 Final
--- OUTSIDE RECORDS SUMMARY | 2023-07-25 05:20 | External Medical Summary ---
Author Name Unknown Organization K09:[facility] [address] [place] [address] Laboratory Report Ordering Provider Test Date Status BALAJI MEDRANO DO 10/16/2013 11:55:00-0500 Final Obs # Observation Date Value ABNL Reference Status Pe rforming Location 1 Potassium 10/16/2013 13:21-0500 4.7 3.5-5.1 mmol/L Final
--- OUTSIDE RECORDS SUMMARY | 2023-07-25 05:20 | External Medical Summary ---
Author Name Unknown Organization K01:[facility], [address] [address] Laboratory Report Ordering Provider Test Date Status BALAJI MARCELA 03/27/2014 15:24:00-0400 Final Obs # Observation Date Value ABNL Reference Status Pe rforming Location 1 Cortisol 03/27/2014 22:43-0400 7.7 ug/dL Final PM REFERENCE RANGE 2.3-11.9 ug/dL
--- OUTSIDE RECORDS SUMMARY | 2023-07-25 05:20 | External Medical Summary ---
Author Name [facility] Organization K09:[facility] [address] [place] [address] Support Name Relationship Address Phone [facility], BERNARDO CUELLAR Unknown Unavailable Laboratory Report Ordering Provider Test Date Status BERNARDO [facility] 01/24/2013 11:10:00-0400 Final Obs # Observation Date Value ABNL Reference Status Pe rforming Location 1 PT 01/24/2013 14:25-0400 20.2 H 11.2-14.2 seconds Final 2 INR 01/24/2013 14:25-0400 1.85 H 0.85-1.16 Final
--- OUTSIDE RECORDS SUMMARY | 2023-07-25 05:20 | External Medical Summary ---
Author Name Unknown Organization K01:[facility], [address] [address] Laboratory Report Ordering Provider Test Date Status BALAJI MEDRANO DO 03/14/2014 15:29:00-0400 Final Obs # Observation Date Value ABNL Reference Status Pe rforming Location 1 specimen 4 15:29-040 0 CLEAN CATCH URINE Final 2 result 4 13:53-040 0 10,000 TO 100,000 COLONIES/ML BETA STREPTOCOCCUS GROUP B Final 3 result 4 13:53-040 0 LESS THAN 10,000 COLONIES/ML ONE OTHER SPECIES Final 4 report status 4 14:16-040 0 03/17/2014 FINAL Final 5 Bacterial Culture 4 13:53-040 0 BETA STREPTOCOCCUS GROUP B A Final 10,000 TO 100,000 COLONIES/ML BETA STREPTOCOCCUS GROUP B
--- OUTSIDE RECORDS SUMMARY | 2023-07-25 05:20 | External Medical Summary ---
Author Name [facility] Organization K09:[facility] [address] [place] [address] Support Name Relationship Address Phone [facility], BERNARDO CUELLAR Unknown Unavailable Laboratory Report Ordering Provider Test Date Status BERNARDO [facility] 04/28/2013 12:53:00-0400 Final Obs # Observation Date Value ABNL Reference Status Pe rforming Location 1 PT 04/28/2013 14:47-0400 28.4 H 11.2-14.2 seconds Final 2 INR 04/28/2013 14:47-0400 2.89 H 0.85-1.16 Final
--- OUTSIDE RECORDS SUMMARY | 2023-07-25 05:20 | External Medical Summary ---
Author Name MARCELA HOLLINS Organization K01:[employer] [facility], [address] [address] Support Name Relationship Address Phone BALAJI MEDRANO DO Unknown Unavailable Laboratory Report Ordering Provider Test Date Status BALAJI MEDRANO DO 05/11/2013 14:42:00-0400 Final Obs # Observation Date Value ABNL Reference Status Pe rforming Location 1 Color, UA 05/11/2013 21:41-0400 YELLOW YEL Final 2 Clarity, UA 05/11/2013 21:41-0400 CLEAR CLEAR Final 3 Glucose, UA 05/11/2013 21:41-0400 NEGATIVE NEG mg/dL Final 4 Bilirubin, UA 05/11/2013 21:41-0400 NEGATIVE NEG Final 5 Ketones, UA 05/11/2013 21:41-0400 NEGATIVE NEG mg/dL Final 6 SPECIFIC GRAVITY 05/11/2013 21:41-0400 1.026 1.003-1.030 Final 7 Hemoglobin, qual. UA 05/11/2013 21:41-0400 NEGATIVE NEG Final 8 pH, UA 05/11/2013 21:41-0400 5.0 5-6 units Final 9 Protein, UA 05/11/2013 21:41-0400 NEGATIVE NEG mg/dL Final 10 Urobilinogen, UA 05/11/2013 21:41-0400 NORMAL NORM EU/dL Final 11 Nitrite, UA 05/11/2013 21:41-0400 NEGATIVE NEG Final 12 Leukocyte Esterase, UA 05/11/2013 21:41-0400 NEGATIVE NEG Final 13 comment 05/11/2013 21:41-0400 SEE COMMENT Final SCREEN NEGATIVE - MICROSCOPIC NOT DONE
--- OUTSIDE RECORDS SUMMARY | 2023-07-25 05:20 | External Medical Summary ---
Author Name Unknown Organization K01:[facility], [address] [address] Laboratory Report Ordering Provider Test Date Status CYNTHIA SPRAGUE [facility] 03/14/2014 15:26:00-0400 Final Obs # Observation Date Value ABNL Reference Status Pe rforming Location 1 PT 03/14/2014 21:0400 13.6 11.3-14.9 seconds Final 2 INR 03/14/2014 21: 1.05 0.82-1.19 Final
--- OUTSIDE RECORDS SUMMARY | 2023-07-25 05:20 | External Medical Summary ---
Author Name Unknown Organization K09:[facility] [place] [address] [place] [address] Laboratory Report Ordering Provider Test Date Status BALAJI MEDRANO DO 10/06/2013 11:03:00-0500 Final Obs # Observation Date Value ABNL Reference Status Pe rforming Location 1 BUN 10/06/2013 11:46-0500 10 6-20 mg/dL Final 2 Creatinine 10/06/2013 11:46-0500 0.7 0.5-1.1 mg/dL Final GFR should be used to assess renal function. Plasma/Serum creatinine may not be able to properly reflect renal function in some cases.
--- OUTSIDE RECORDS SUMMARY | 2023-07-25 05:20 | External Medical Summary ---
Author Name MARCELA HOLLINS Organization K01:[facility], [address] [address] Support Name Relationship Address Phone FEKASSY BALAJI Unknown Unavailable Laboratory Report Ordering Provider Test Date Status BALAJI MEDRANO DO 10/24/2012 16:43:00-0500 Final Obs # Observation Date Value ABNL Reference Status Pe rforming Location 1 ESR 10/24/2012 23:37-0500 10 0-20 mm/hour Final
--- OUTSIDE RECORDS SUMMARY | 2023-07-25 05:20 | External Medical Summary ---
Author Name MARCELA HOLLINS Organization K01:[facility], [address] [address] Support Name Relationship Address Phone BALAJI MEDRANO DO Unknown Unavailable Laboratory Report Ordering Provider Test Date Status BALAJI MEDRANO DO 01/24/2013 11:11:00-0400 Final Obs # Observation Date Value ABNL Reference Status Pe rforming Location 1 25OH VITAMIN D TOTAL 01/24/2013 22:22-0400 30.8 30.0-100.0 ng/mL Final Deficient: <20.0 ng/mL Insufficient: 20.0-29.9 ng/ml Sufficient: 30.0-100.0 ng/ml High: >100.0 ng/ml Refer to [facility] Osteoporosis for Practitioners Best Practice Guidelines for therapeutic recommendations.
--- OUTSIDE RECORDS SUMMARY | 2023-07-25 05:20 | External Medical Summary ---
Author Name Unknown Organization K09:[facility] [address] [facility] [address] Laboratory Report Ordering Provider Test Date Status CYNTHIA SPRAGUE [facility] 03/27/2014 15:26:00-0400 Final Obs # Observation Date Value ABNL Reference Status Pe rforming Location 1 PT 03/27/2014 16:51-0400 40.0 H 11.3-14.9 seconds Final 2 INR 03/27/2014 16:51-0400 4.41 H 0.82-1.19 Final
--- OUTSIDE RECORDS SUMMARY | 2023-07-25 05:20 | External Medical Summary ---
Author Name JOHN PEREZ Organization K09:[facility], [address] [place] [address] , [place] [address] Support Name Relationship Address Phone HIEN LOPEZ MD PROV Unknown Unavail able Laboratory Report Ordering Provider Test Date Status HIEN LOPEZ MD 05/17/2013 11:16:00-0400 Fin al Obs # Observation Date Value ABNL Reference Status Pe rforming Location 1 BUN 05/17/2013 16:28-0400 15 6-20 mg/dL Final 2 Creatinine 05/17/2013 15:28-0400 0.6 0.5-1.1 mg/dL Final GFR should be used to assess renal function. Plasma/Serum creatinine may not be able to properly reflect renal function in some cases.
--- OUTSIDE RECORDS SUMMARY | 2023-07-25 05:20 | External Medical Summary ---
Author Name [facility] Organization K01:[facility], [address] [address] Support Name Relationship Address Phone [facility], BERNARDO CUELLAR Unknown Unavailable Laboratory Report Ordering Provider Test Date Status BERNARDO [facility] 09/09/2012 15:30:00-0400 Final Obs # Observation Date Value ABNL Reference Status Pe rforming Location 1 PT 09/09/2012 21:53-0400 28.7 H 11.2-14.2 seconds Final 2 INR 09/09/2012 21:53-0400 2.93 H 0.85-1.16 Final
--- OUTSIDE RECORDS SUMMARY | 2023-07-25 05:20 | External Medical Summary ---
Author Name Unknown Organization K01:[facility], [address] [address] Laboratory Report Ordering Provider Test Date Status BALAJI MEDRANO DO 03/14/2014 15:29:00-0400 Final Obs # Observation Date Value ABNL Reference Status Pe rforming Location 1 Color, UA 4 22:09-040 0 YELLOW YEL Final 2 Clarity, UA 4 22:09-040 0 SLIGHTLY CLOUDY A CLEAR Final 3 Glucose, UA 4 22:09-040 0 NEGATIVE NEG mg/dL Final 4 Bilirubin, UA 4 22:09-040 0 NEGATIVE NEG Final 5 Ketones, UA 4 22:09-040 0 NEGATIVE NEG mg/dL Final 6 SPECIFIC GRAVITY 4 22:09-040 0 1.030 1.003-1.030 Final 7 Hemoglobin, qual. UA 4 22:09-040 0 NEGATIVE NEG Final 8 pH, UA 4 22:09-040 0 5.0 5-6 units Final 9 Protein, UA 4 22:09-040 0 NEGATIVE NEG mg/dL Final 10 Urobilinogen, UA 4 22:09-040 0 2.0 A NORM EU/dL Final 11 Nitrite, UA 4 22:09-040 0 NEGATIVE NEG Final 12 Leukocyte Esterase, UA 4 22:09-040 0 TRACE A NEG Final 13 Bacteria, UA 4 22:09-040 0 OCCASIONAL Final 14 WBC, UA 4 22:09-040 0 1-4 /HPF Final 15 RBC, UA 4 22:09-040 0 1-4 /HPF Final 16 SQ EPITH CELLS,UA 4 22:09-040 0 OCCASIONAL Final 17 Mucus, UA 4 22:09-040 0 FEW Final 18 Hyaline casts, UA 4 22:09-040 0 1-4 Final 19 CA OX CRYSTAL,UA 4 22:09-040 0 FEW Final
--- OUTSIDE RECORDS SUMMARY | 2023-07-25 05:20 | External Medical Summary ---
Author Name Unknown Organization K09:[facility] Dagoberto bartholomew [address], [facility] [address] Laboratory Report Ordering Provider Test Date Status BALAJI MEDRANO DO 10/06/2013 11:03:00-0500 Final Obs # Observation Date Value ABNL Reference Status Pe rforming Location 1 WBC 10/06/2013 11:13-0500 14.84 H 4.00-10.80 K/uL Final 2 RBC 10/06/2013 11:13-0500 4.29 3.85-5.15 M/uL Final 3 HGB 10/06/2013 11:13-0500 12.7 12.0-14.5 g/dL Final 4 HCT 10/06/2013 11:13-0500 40.6 36.0-44.5 % Final 5 MCV 10/06/2013 11:13-0500 94.6 81.5-97.5 fL Final 6 MCH 10/06/2013 11:13-0500 29.6 27.0-34.0 pg Final 7 MCHC 10/06/2013 11:13-0500 31.3 L 32.0-36.0 g/dL Final 8 RDW 10/06/2013 11:13-0500 15.4 11.5-15.5 % Final 9 PLT 10/06/2013 11:13-0500 341 140-400 K/uL Final 10 MPV 10/06/2013 11:13-0500 8.0 6.6-11.1 fL Final 11 diff type 10/06/2013 11:13-0500 AUTO Final 12 Segs 10/06/2013 11:14-0500 77 H 40-75 % Final 13 Lymphocytes 10/06/2013 11:14-0500 16 L 18-42 % Final 14 Monos 10/06/2013 11:14-0500 7 1-11 % Final 15 Segmented Neutrophils, Abs 10/06/2013 11:14-0500 11.43 H 1.8-7.7 K/uL Final 16 Lymphs, Abs 10/06/2013 11:14-0500 2.37 1.0-4.8 K/uL Final 17 Monos, Abs 10/06/2013 11:14-0500 1.04 0.0-1.1 K/uL Final
--- OUTSIDE RECORDS SUMMARY | 2023-07-25 05:20 | External Medical Summary ---
Author Name Unknown Organization K09:[facility] [address] [facility] [address] Laboratory Report Ordering Provider Test Date Status CYNTHIA SPRAGUE [facility] 03/08/2014 10:19:00-0400 Final Obs # Observation Date Value ABNL Reference Status Pe rforming Location 1 PT 03/08/2014 14:54-0400 13.5 11.3-14.9 seconds Final 2 INR 03/08/2014 14:54-0400 1.04 0.82-1.19 Final
--- OUTSIDE RECORDS SUMMARY | 2023-07-25 05:20 | External Medical Summary ---
Author Name Unknown Organization K01:[facility], [address] [address] Laboratory Report Ordering Provider Test Date Status HARINI WAGNER 03/08/2014 10:22:00-0400 Final Obs # Observation Date Value ABNL Reference Status Pe rforming Location 1 methodology 03/09/2014 15:15-0400 GCMS Final 2 Codeine 03/09/2014 15:15-0400 NEGATIVE NEG ng/mL Final 3 Morphine, Urine confirmatory 03/09/2014 15:15-0400 NEGATIVE NEG ng/mL Final 4 Hydrocodone, Urine confirmatory 03/09/2014 15:15-0400 NEGATIVE NEG ng/mL Final 5 Hydromorphone, Urine confirmatory 03/09/2014 15:15-0400 NEGATIVE NEG ng/mL Final 6 Oxycodone, Urine confirmatory 03/09/2014 15:15-0400 >100 A NEG ng/mL Final 7 Oxymorphone, Urine confirmatory 03/09/2014 15:15-0400 >100 A NEG ng/mL Final 8 Cutoff Concentration 03/09/2014 15:15-0400 Final Drug Level Codeine 100 ng/mL Morphine 100 ng/mL Hydrocodone 100 ng/mL Hydromorphone 100 ng/mL Oxycodone 100 ng/mL Oxymorphone 100 ng/mL
--- OUTSIDE RECORDS SUMMARY | 2023-07-25 05:20 | External Medical Summary ---
Author Name Unknown Organization K09:[facility] [address] [facility] [address] Laboratory Report Ordering Provider Test Date Status BERNARDO OCONNELL [facility] 08/01/2013 10:50:00-0400 Final Obs # Observation Date Value ABNL Reference Status Pe rforming Location 1 PT 08/01/2013 15:01-0400 35.7 H 11.3-14.9 seconds Final 2 INR 08/01/2013 15:0400 3.79 H 0.82-1.19 Final
--- OUTSIDE RECORDS SUMMARY | 2023-07-25 05:20 | External Medical Summary ---
Author Name MARCELA HOLLINS Organization K09:[facility] [address] [place] [address] Support Name Relationship Address Phone BALAJI MEDRANO DO Unknown Unavailable Laboratory Report Ordering Provider Test Date Status BALAJI MEDRANO DO 05/08/2013 08:26:00-0400 Final Obs # Observation Date Value ABNL Reference Status Pe rforming Location 1 specimen 05/08/2013 08:28-0400 CLEAN CATCH URINE Final 2 result 05/10/2013 07:26-0400 MULTIPLE URSULA SUGGESTS CONTAMINATION Final 3 report status 05/10/2013 07:26-0400 05/10/2013 FINAL Final
--- OUTSIDE RECORDS SUMMARY | 2023-07-25 05:20 | External Medical Summary ---
Author Name MARCELA HOLLINS Organization K01:[facility], [address] [facility] [address] Support Name Relationship Address Phone BALAJI MEDRANO DO Unknown Unavailable Laboratory Report Ordering Provider Test Date Status BALAJI MEDRANO DO 05/08/2013 08:26:00-0400 Final Obs # Observation Date Value ABNL Reference Status Pe rforming Location 1 Color, UA 05/08/2013 13:38-0400 HERRERA A YEL Final 2 Clarity, UA 05/08/2013 13:38-0400 CLOUDY A CLEAR Final 3 Glucose, UA 05/08/2013 13:38-0400 NEGATIVE NEG mg/dL Final 4 Bilirubin, UA 05/08/2013 13:38-0400 NEGATIVE NEG Final 5 Ketones, UA 05/08/2013 13:38-0400 NEGATIVE NEG mg/dL Final 6 SPECIFIC GRAVITY 05/08/2013 13:38-0400 1.030 1.003-1.030 Final 7 Hemoglobin, qual. UA 05/08/2013 13:38-0400 NEGATIVE NEG Final 8 pH, UA 05/08/2013 13:38-0400 5.0 5-6 units Final 9 Protein, UA 05/08/2013 13:38-0400 30 A NEG mg/dL Final 10 Urobilinogen, UA 05/08/2013 13:38-0400 2.0 A NORM EU/dL Final 11 Nitrite, UA 05/08/2013 13:38-0400 NEGATIVE NEG Final 12 Leukocyte Esterase, UA 05/08/2013 13:38-0400 NEGATIVE NEG Final 13 Bacteria, UA 05/08/2013 13:38-0400 NONE Final 14 WBC, UA 05/08/2013 13:38-0400 1-4 /HPF Final 15 RBC, UA 05/08/2013 13:38-0400 5-9 /HPF Final 16 SQ EPITH CELLS,UA 05/08/2013 13:38-0400 OCCASIONAL Final 17 Mucus, UA 05/08/2013 13:38-0400 MODERATE Final
--- OUTSIDE RECORDS SUMMARY | 2023-07-25 05:20 | External Medical Summary ---
Author Name Unknown Organization K01:[facility], [address] [address] Laboratory Report Ordering Provider Test Date Status BERNARDO OCONNELL [facility] 07/15/2013 11:39:00-0400 Final Obs # Observation Date Value ABNL Reference Status Pe rforming Location 1 PT 07/15/2013 20:01-0400 20.3 H 11.2-14.2 seconds Final 2 INR 07/15/2013 20:0 1.86 H 0.85-1.16 Final
--- OUTSIDE RECORDS SUMMARY | 2023-07-25 05:20 | External Medical Summary ---
Author Name Unknown Organization K01:[facility], [address] [address] Laboratory Report Ordering Provider Test Date Status NO POST PAC 09/13/2013 15:10:00-0 400 Final Obs # Observation Date Value ABNL Reference Status Pe rforming Location 1 URINE COMMENT POC 3 15:04-040 0 PLEASE REVIEW CAREFULLY. SOME ABNORMAL RESULTS DO NOT FLAG Final 2 Color, UA 3 15:04-040 0 Yellow YEL Final 3 Clarity, UA 3 15:04-040 0 Clear CLEAR Final 4 Glucose, UA 3 15:04-040 0 Negative NEG mg/dL Final 5 Bilirubin, UA 3 15:04-040 0 Negative NEG Final 6 Ketones, UA 3 15:04-040 0 Negative NEG mg/dL Final 7 SPECIFIC GRAVITY 3 15:04-040 0 <=1.005 1.003-1.030 Final 8 Hemoglobin, qual. UA 3 15:04-040 0 Negative NEG Final 9 pH, UA 3 15:04-040 0 5.5 5-6 units Final 10 Protein, UA 3 15:04-040 0 Negative NEG mg/dL Final 11 UROBILINOGEN, UA POC 3 15:04-040 0 0.2 0.2-1.0 EU/dL Final 12 Nitrite, UA 3 15:04-040 0 Negative NEG Final 13 Leukocyte Esterase, UA 3 15:04-040 0 Negative NEG Final
--- OUTSIDE RECORDS SUMMARY | 2023-07-25 05:20 | External Medical Summary ---
Author Name Unknown Organization K09:[facility], [address], [place] [address] Laboratory Report Ordering Provider Test Date Status BALAJI MEDRANO DO 03/27/2014 15:24:00-0400 Final Obs # Observation Date Value ABNL Reference Status Pe rforming Location 1 WBC 03/27/2014 15:40-0400 8.22 4.00-10.80 K/uL Final 2 RBC 03/27/2014 15:40-0400 4.93 3.85-5.15 M/uL Final 3 HGB 03/27/2014 15:40-0400 14.2 12.0-14.5 g/dL Final 4 HCT 03/27/2014 15:40-0400 44.7 H 36.0-44.5 % Final 5 MCV 03/27/2014 15:40-0400 90.7 81.5-97.5 fL Final 6 MCH 03/27/2014 15:40-0400 28.8 27.0-34.0 pg Final 7 MCHC 03/27/2014 15:40-0400 31.8 L 32.0-36.0 g/dL Final 8 RDW 03/27/2014 15:40-0400 15.6 H 11.5-15.5 % Final 9 PLT 03/27/2014 15:40-0400 424 H 140-400 K/uL Final 10 MPV 03/27/2014 15:40-0400 8.5 6.6-11.1 fL Final
--- OUTSIDE RECORDS SUMMARY | 2023-07-25 05:20 | External Medical Summary ---
Author Name Unknown Organization K01:[facility], [address] [address] Laboratory Report Ordering Provider Test Date Status CYNTHIA SPRAUGE [facility] 08/25/2013 13:57:00-0400 Final Obs # Observation Date Value ABNL Reference Status Pe rforming Location 1 PT 08/25/2013 21:010400 23.4 H 11.3-14.9 seconds Final 2 INR 08/25/2013 21:0400 2.16 H 0.82-1.19 Final
--- OUTSIDE RECORDS SUMMARY | 2023-07-25 05:20 | External Medical Summary ---
Author Name Unknown Organization K09:[facility] [address] [facility] [address] Laboratory Report Ordering Provider Test Date Status CYNTHIA SPRAGUE [facility] 10/06/2013 11:06:00-0500 Final Obs # Observation Date Value ABNL Reference Status Pe rforming Location 1 PT 10/06/2013 12:13-0500 38.8 H 11.3-14.9 seconds Final 2 INR 10/06/2013 12:13-0500 4.24 H 0.82-1.19 Final
--- OUTSIDE RECORDS SUMMARY | 2023-07-25 05:20 | External Medical Summary ---
Author Name MARCELA HOLLINS Organization K01:[facility], [address] [facility], [place] [address] Support Name Relationship Address Phone BALAJI MEDRANO DO Unknown Unavailable Laboratory Report Ordering Provider Test Date Status BALAJI MEDRANO DO 10/26/2012 12:21:00-0500 Final Obs # Observation Date Value ABNL Reference Status Pe rforming Location 1 Color, UA 10/26/2012 17:11-0500 STRAW A YEL Final 2 Clarity, UA 10/26/2012 17:11-0500 CLEAR CLEAR Final 3 Glucose, UA 10/26/2012 17:11-0500 NEGATIVE NEG mg/dL Final 4 Bilirubin, UA 10/26/2012 17:11-0500 NEGATIVE NEG Final 5 Ketones, UA 10/26/2012 17:11-0500 NEGATIVE NEG mg/dL Final 6 SPECIFIC GRAVITY 10/26/2012 17:11-0500 1.010 1.003-1.030 Final 7 Hemoglobin, qual. UA 10/26/2012 17:11-0500 SMALL A NEG Final 8 pH, UA 10/26/2012 17:11-0500 7.0 H 5-6 units Final 9 Protein, UA 10/26/2012 17:11-0500 NEGATIVE NEG mg/dL Final 10 Urobilinogen, UA 10/26/2012 17:11-0500 NORMAL NORM EU/dL Final 11 Nitrite, UA 10/26/2012 17:11-0500 NEGATIVE NEG Final 12 Leukocyte Esterase, UA 10/26/2012 17:11-0500 NEGATIVE NEG Final 13 Bacteria, UA 10/26/2012 17:11-0500 NONE Final 14 WBC, UA 10/26/2012 17:11-0500 1-4 /HPF Final 15 RBC, UA 10/26/2012 17:11-0500 NONE /HPF Final 16 SQ EPITH CELLS,UA 10/26/2012 17:11-0500 OCCASIONAL Final
--- OUTSIDE RECORDS SUMMARY | 2023-07-25 05:20 | External Medical Summary ---
Author Name Unknown Organization K09:[facility] [address] [place] [address] Laboratory Report Ordering Provider Test Date Status BALAJI MEDRANO 10/16/2013 11:55:00-0500 Final Obs # Observation Date Value ABNL Reference Status Pe rforming Location 1 CK 10/16/2013 15:58-0500 57 34-174 U/L Final
--- OUTSIDE RECORDS SUMMARY | 2023-07-25 05:21 | External Medical Summary ---
Author Name MARCELA Organization K09:[facility] [address] [place] [address] Support Name Relationship Address Phone BALAJI MEDRANO DO Unknown Unavailable Laboratory Report Ordering Provider Test Date Status BALAJI MARCELA 12/30/2011 11:28:00-0500 Final Obs # Observation Date Value ABNL Reference Status Pe rforming Location 1 Strep. pyogenes Ag 12/30/2011 11:32-0500 NEGATIVE NEG Final
--- OUTSIDE RECORDS SUMMARY | 2023-07-25 05:21 | External Medical Summary ---
Author Name KUNAL ARECHIGA MD Organization K09:[address] , [facility] [address] Support Name Relationship Address Phone LIANA ARECHIGA MD PROV Unknown Mildred vailable Laboratory Report Ordering Provider Test Date Status LIANA ARECHIGA MD 08/17/2011 10:0 F inal Obs # Observation Date Value ABNL Reference Status Pe rforming Location 1 PT 08/17/2011 12: 12.8 11.7-14.0 seconds Final 2 INR 08/17/2011 12: 0.97 0.9-1.12 Final
--- OUTSIDE RECORDS SUMMARY | 2023-07-25 05:21 | External Medical Summary ---
Author Name KUNAL ARECHIGA MD Organization K09:[facility], [address] [facility] , [facility] [address] Support Name Relationship Address Phone LIANA ARECHIGA MD PROV Unknown Mildred vailable Laboratory Report Ordering Provider Test Date Status LIANA ARECHIGA MD 08/17/2011 10:38-0400 F inal Obs # Observation Date Value ABNL Reference Status Pe rforming Location 1 BUN 1 12:17-040 0 10 6-20 mg/dL Final 2 Creatinine 1 12:17-040 0 0.6 0.5-1.1 mg/dL Final 3 Creatinine 1 12:17-040 0 GFR should be used to assess renal function. Plasma/Serum creatinine may not be able to properly reflect renal function in some cases. Final 4 Sodium 1 12:17-040 0 138 135-146 mmol/L Final 5 Potassium 1 12:17-040 0 3.5 3.5-5.1 mmol/L Final 6 Cl 1 12:17-040 0 99 98-111 mmol/L Final 7 CO2 1 12:17-040 0 28 22-32 mmol/L Final 8 Glucose 1 12:17-040 0 112 70-120 mg/dL Final 9 Albumin 1 12:17-040 0 4.2 3.8-5.0 g/dL Final 10 AST (Aspartate aminotransferase ) 1 12:17-040 0 13 10-35 U/L Final 11 Alk Phos 1 12:17-040 0 83 0-153 U/L Final 12 Bilirubin, Total 1 12:17-040 0 0.4 0.3-1.3 mg/dL Final 13 Calcium 1 12:17-040 0 9.0 8.3-10.5 mg/dL Final 14 Protein 1 12:17-040 0 6.9 6.0-8.3 g/dL Final 15 ALT (Alanine aminotransferase ) 1 12:17-040 0 14 10-35 U/L Final 16 Anion gap 1 12:17-040 0 11 7-15 mmol/L Final 17 GFR (estimated) 1 12: 0 >60.0 >60 mL/min Final
--- OUTSIDE RECORDS SUMMARY | 2023-07-25 05:21 | External Medical Summary ---
Author Name BERNARDO OCONNELL RPH Organization K01:[facility], [address] [address] Support Name Relationship Address Phone BERNARDO OCONNELL RPH [facility] Unknown Unavailable Laboratory Report Ordering Provider Test Date Status BERNARDO OCONNELL RPH 09/03/2011 13:0400 Final Obs # Observation Date Value ABNL Reference Status Pe rforming Location 1 PT 09/03/2011 22:-0400 29.7 H 12.5-14.3 seconds Final 2 INR 09/03/2011 22:01-0400 2.88 H 0.94-1.12 Final
--- OUTSIDE RECORDS SUMMARY | 2023-07-25 05:21 | External Medical Summary ---
Author Name TENNILLE CALIX Organization K01:[facility], [address] [address] Support Name Relationship Address Phone TENNILLE CALIX PROV Unknown Unavaila ble Laboratory Report Ordering Provider Test Date Status TENNILLE CALIX 08/13/2011 11:06-0400 Final Obs # Observation Date Value ABNL Reference Status Pe rforming Location 1 Ferritin 08/13/2011 20:13-0400 89.6 13-150 ng/mL Final
--- OUTSIDE RECORDS SUMMARY | 2023-07-25 05:21 | External Medical Summary ---
Author Name Unknown Organization [employer] Support Name Relationship Address Phone [facility], PROV Unknown Unavail able Laboratory Report Ordering Provider Test Date Status [facility], 06/29/2011 09:41-0400 Final Obs # Observation Date Value ABNL Reference Status Pe rforming Location 1 FINGERSTICK INR 1 09:40-040 0 2.0 INR Final 2 THERAPEUTIC RANGE 1 09:40-040 0 Final 3 THERAPEUTIC RANGE 1 09:40-040 0 Therapeutic ranges for non-operative patients: Final 4 THERAPEUTIC RANGE 1 09:40-040 0 Prophylaxsis/leslie tment of DVT: (Range:2.0-3.0) Final 5 THERAPEUTIC RANGE 1 09:40-040 0 Treatment of pulmonary embolism:(Range:2 .0-3.0) Final 6 THERAPEUTIC RANGE 1 09:40-040 0 Prevention of systemic embolism from: Final 7 THERAPEUTIC RANGE 1 09:40-040 0 -tissue heart valves Final 8 THERAPEUTIC RANGE 1 09:40-040 0 -acute myocardial infarction Final 9 THERAPEUTIC RANGE 1 09:40-040 0 -valvular heart disease Final 10 THERAPEUTIC RANGE 1 09:40-040 0 -atrial fibrillation Final 11 THERAPEUTIC RANGE 1 09:40-040 0 (Range: 2.0-3.0) Final 12 THERAPEUTIC RANGE 1 09:40-040 0 Mechanical prosthetic valves: (Range: 2.5-3.5) Final
--- OUTSIDE RECORDS SUMMARY | 2023-07-25 05:21 | External Medical Summary ---
Author Name [facility] Organization K01:[facility], [address] [address] Support Name Relationship Address Phone [facility] PROV Unknown Unavaila ble Laboratory Report Ordering Provider Test Date Status [facility] 04/26/2012 15:58:00-0400 Fin al Obs # Observation Date Value ABNL Reference Status Pe rforming Location 1 INR, fingerstick (POC) 04/26/2012 15:54-0400 2.9 INR Final 2 Target range 04/26/2012 15:54-0400 Final Therapeutic ranges for non-operative patients: Prophylaxsis/treatment of DVT: (Range:2.0-3.0) Treatment of pulmonary embolism:(Range:2.0-3.0) Prevention of systemic embolism from: -tissue heart valves -acute myocardial infarction -valvular heart disease -atrial fibrillation (Range: 2.0-3.0) Mechanical prosthetic valves: (Range: 2.5-3.5)
--- OUTSIDE RECORDS SUMMARY | 2023-07-25 05:21 | External Medical Summary ---
Author Name TENNILLE CALIX Organization K01:[facility], [address] [address] Support Name Relationship Address Phone TENNILLE CALIX PROV Unknown Unavaila ble Laboratory Report Ordering Provider Test Date Status TENNILLE CALIX 08/13/2011 11:040 Final Obs # Observation Date Value ABNL Reference Status Pe rforming Location 1 Epinephrine, Urine 08/18/2011 14: 22.0 H 2-16 ug/g creat Final 2 Norepinephrine, Urine 08/18/2011 14: 53.5 7-65 ug/g creat Final 3 Dopamine / Creatinine Urine 08/18/2011 14: 246.8 40-390 ug/g creat Final 4 Catecholamines, Urine 08/18/2011 14: 322.3 ug/g creat Final 5 Creatinine, Random Urine 08/13/2011 21:050400 42 mg/dL Final
--- OUTSIDE RECORDS SUMMARY | 2023-07-25 05:21 | External Medical Summary ---
Author Name BERNADRO OCONNELL RPH Organization K01:[facility], [facility] [place] [address] [address] Support Name Relationship Address Phone BERNARDO OCONNELL RPH [facility] Unknown Unavailable Laboratory Report Ordering Provider Test Date Status BERNARDO OCONNELL RPH 09/28/2011 13:51-0500 Final Obs # Observation Date Value ABNL Reference Status Pe rforming Location 1 PROTIME 09/29/2011 00:12-0500 15.6 H 12.5-14.3 seconds Final 2 INR 09/29/2011 00:12-0500 1.22 H 0.94-1.12 Final
--- OUTSIDE RECORDS SUMMARY | 2023-07-25 05:21 | External Medical Summary ---
Author Name [facility] Organization K01:[facility], [address] [address] Support Name Relationship Address Phone [facility] PROV Unknown Unavaila ble Laboratory Report Ordering Provider Test Date Status [facility] 03/25/2012 12:50:00-0400 Fin al Obs # Observation Date Value ABNL Reference Status Pe rforming Location 1 INR, fingerstick (POC) 03/25/2012 14:46-0400 4.0 INR Final 2 Target range 03/25/2012 14:46-0400 Final Therapeutic ranges for non-operative patients: Prophylaxsis/treatment of DVT: (Range:2.0-3.0) Treatment of pulmonary embolism:(Range:2.0-3.0) Prevention of systemic embolism from: -tissue heart valves -acute myocardial infarction -valvular heart disease -atrial fibrillation (Range: 2.0-3.0) Mechanical prosthetic valves: (Range: 2.5-3.5)
--- OUTSIDE RECORDS SUMMARY | 2023-07-25 05:21 | External Medical Summary ---
Author Name TENNILLE CALIX Organization K09:[address] , [place] [address] Support Name Relationship Address Phone TENNILLE CALIX PROV Unknown Unavaila ble Laboratory Report Ordering Provider Test Date Status TENNILLE CALIX 08/13/2011 08:00-0400 Final Obs # Observation Date Value ABNL Reference Status Pe rforming Location 1 Occult Blood (EIA) 08/14/2011 11:04-0400 POSITIVE A NEG Final
--- OUTSIDE RECORDS SUMMARY | 2023-07-25 05:21 | External Medical Summary ---
Author Name BERNARDO OCONNELL RPH Organization K09:[facility], [address] , [place] [address] Support Name Relationship Address Phone BERNARDO OCONNELL RPH PROV Unknown Unavailable Laboratory Report Ordering Provider Test Date Status BERNARDO OCONNELL RPH 08/10/2011 13:220400 Final Obs # Observation Date Value ABNL Reference Status Pe rforming Location 1 FINGERSTICK INR 1 10:29-040 0 >8.0 INR Final 2 THERAPEUTIC RANGE 1 10:27-040 0 Final 3 THERAPEUTIC RANGE 1 10:27-040 0 Therapeutic ranges for non-operative patients: Final 4 THERAPEUTIC RANGE 1 10:27-040 0 Prophylaxsis/leslie tment of DVT: (Range:2.0-3.0) Final 5 THERAPEUTIC RANGE 1 10:27-040 0 Treatment of pulmonary embolism:(Range:2 .0-3.0) Final 6 THERAPEUTIC RANGE 1 10:27-040 0 Prevention of systemic embolism from: Final 7 THERAPEUTIC RANGE 1 10:27-040 0 -tissue heart valves Final 8 THERAPEUTIC RANGE 1 10:27-040 0 -acute myocardial infarction Final 9 THERAPEUTIC RANGE 1 10:27-040 0 -valvular heart disease Final 10 THERAPEUTIC RANGE 1 10:27-040 0 -atrial fibrillation Final 11 THERAPEUTIC RANGE 1 10:27-040 0 (Range: 2.0-3.0) Final 12 THERAPEUTIC RANGE 1 10:27-040 0 Mechanical prosthetic valves: (Range: 2.5-3.5) Final
--- OUTSIDE RECORDS SUMMARY | 2023-07-25 05:21 | External Medical Summary ---
Author Name MARCELA HOLLINS Organization K01:[facility], [address] [address] Support Name Relationship Address Phone BALAJI MEDRANO DO Unknown Unavailable Laboratory Report Ordering Provider Test Date Status BALAJI MEDRANO DO 06/16/2012 11:25:00-0400 Final Obs # Observation Date Value ABNL Reference Status Pe rforming Location 1 INR, fingerstick (POC) 06/16/2012 11:21-0400 2.0 INR Final 2 Target range 06/16/2012 11:21-0400 Final Therapeutic ranges for non-operative patients: Prophylaxsis/treatment of DVT: (Range:2.0-3.0) Treatment of pulmonary embolism:(Range:2.0-3.0) Prevention of systemic embolism from: -tissue heart valves -acute myocardial infarction -valvular heart disease -atrial fibrillation (Range: 2.0-3.0) Mechanical prosthetic valves: (Range: 2.5-3.5)
--- OUTSIDE RECORDS SUMMARY | 2023-07-25 05:21 | External Medical Summary ---
Author Name Unknown Organization K09:[facility] [place] [address] [place] [address] Support Name Relationship Address Phone BERNARDO OCONNELL RPH PROV Unknown Unavailable Laboratory Report Ordering Provider Test Date Status BERNARDO OCONNELL RPH 05/30/2011 14:28-0400 Final Obs # Observation Date Value ABNL Reference Status Pe rforming Location 1 FINGERSTICK INR 1 09:06-040 0 >8.0 INR Final 2 THERAPEUTIC RANGE 1 09:05-040 0 Final 3 THERAPEUTIC RANGE 1 09:05-040 0 Therapeutic ranges for non-operative patients: Final 4 THERAPEUTIC RANGE 1 09:05-040 0 Prophylaxsis/leslie tment of DVT: (Range:2.0-3.0) Final 5 THERAPEUTIC RANGE 1 09:05-040 0 Treatment of pulmonary embolism:(Range:2 .0-3.0) Final 6 THERAPEUTIC RANGE 1 09:05-040 0 Prevention of systemic embolism from: Final 7 THERAPEUTIC RANGE 1 09:05-040 0 -tissue heart valves Final 8 THERAPEUTIC RANGE 1 09:05-040 0 -acute myocardial infarction Final 9 THERAPEUTIC RANGE 1 09:05-040 0 -valvular heart disease Final 10 THERAPEUTIC RANGE 1 09:05-040 0 -atrial fibrillation Final 11 THERAPEUTIC RANGE 1 09:05-040 0 (Range: 2.0-3.0) Final 12 THERAPEUTIC RANGE 1 09:05-040 0 Mechanical prosthetic valves: (Range: 2.5-3.5) Final
--- OUTSIDE RECORDS SUMMARY | 2023-07-25 05:21 | External Medical Summary ---
Author Name Unknown Organization K09:[facility] [address] [place] [address] Support Name Relationship Address Phone BERNARDO OCONNELL RPH PROV Unknown Unavailable Laboratory Report Ordering Provider Test Date Status KOURTNEY YUANBERNARDO 05/01/2011 11:41-0400 Final Obs # Observation Date Value ABNL Reference Status Pe rforming Location 1 PT 05/01/2011 12:42-0400 12.1 11.7-14.0 seconds Final 2 INR 05/01/2011 12:42-0400 0.91 0.9-1.12 Final
--- OUTSIDE RECORDS SUMMARY | 2023-07-25 05:21 | External Medical Summary ---
Author Name TENNILLE CALIX Organization K01:[facility], [address] [address] Support Name Relationship Address Phone TENNILLE CALIX PROV Unknown Unavaila ble Laboratory Report Ordering Provider Test Date Status TENNILLE CALIX 08/13/2011 11:06-0400 Final Obs # Observation Date Value ABNL Reference Status Pe rforming Location 1 Iron 08/13/2011 19:48-0400 69 30-160 ug/dL Final
--- OUTSIDE RECORDS SUMMARY | 2023-07-25 05:21 | External Medical Summary ---
Author Name [facility] Organization K01:[facility], [address] [address] Support Name Relationship Address Phone [facility] PROV Unknown Unavaila ble Laboratory Report Ordering Provider Test Date Status [facility] 02/23/2012 12:57:00-0400 Fin al Obs # Observation Date Value ABNL Reference Status Pe rforming Location 1 INR, fingerstick (POC) 02/23/2012 13:08-0400 2.6 INR Final 2 Target range 02/23/2012 13:08-0400 Final Therapeutic ranges for non-operative patients: Prophylaxsis/treatment of DVT: (Range:2.0-3.0) Treatment of pulmonary embolism:(Range:2.0-3.0) Prevention of systemic embolism from: -tissue heart valves -acute myocardial infarction -valvular heart disease -atrial fibrillation (Range: 2.0-3.0) Mechanical prosthetic valves: (Range: 2.5-3.5)
--- OUTSIDE RECORDS SUMMARY | 2023-07-25 05:21 | External Medical Summary ---
Author Name Unknown Organization K09:[facility] [address] [place] [address] Support Name Relationship Address Phone KOURTNEY KWABENAEDENBERNARDO PROV Unknown Unavailable Laboratory Report Ordering Provider Test Date Status BERNARDO OCONNELL RPH 03/23/2011 13:58-0400 Final Obs # Observation Date Value ABNL Reference Status Pe rforming Location 1 PT 03/23/2011 15: 15.6 H 11.7-14.0 seconds Final 2 INR 03/23/2011 15:0 1.27 H 0.9-1.12 Final
--- OUTSIDE RECORDS SUMMARY | 2023-07-25 05:21 | External Medical Summary ---
Author Name RIK PEREZ Organization K01:[facility], [facility] [address] [address] Support Name Relationship Address Phone SUSANNA JOLLY MD PROV Unknown Unavaila ble Laboratory Report Ordering Provider Test Date Status SUSANNA JOLLY MD 07/28/2012 12:04:00-0400 Coby l Obs # Observation Date Value ABNL Reference Status Pe rforming Location 1 25OH VITAMIN D TOTAL 07/29/2012 12:53-0400 28.4 L 30.0-100.0 ng/mL Final Deficient: <20.0 ng/mL Insufficient: 20.0-29.9 ng/ml Sufficient: 30.0-100.0 ng/ml High: >100.0 ng/ml Refer to [facility] Osteoporosis for Practitioners Best Practice Guidelines for therapeutic recommendations.
--- OUTSIDE RECORDS SUMMARY | 2023-07-25 05:21 | External Medical Summary ---
Author Name KUNAL ARECHIGA MD Organization K09:[facility], [address] [facility] , [place] [address] Support Name Relationship Address Phone LIANA ARECHIGA MD PROV Unknown Mildred vailable Laboratory Report Ordering Provider Test Date Status LIANA ARECHIGA MD 08/17/2011 10:380400 F inal Obs # Observation Date Value ABNL Reference Status Pe rforming Location 1 WBC 08/17/2011 11:08-0400 17.62 H 4.00-10.80 K/uL Final 2 RBC 08/17/2011 11:08-0400 4.15 3.85-5.15 M/uL Final 3 HGB 08/17/2011 11:08-0400 13.0 12.0-14.5 g/dL Final 4 HCT 08/17/2011 11:08-0400 40.5 36.0-44.5 % Final 5 MCV 08/17/2011 11:08-0400 97.6 H 81.5-97.5 fL Final 6 MCH 08/17/2011 11:08-0400 31.3 27.0-34.0 pg Final 7 MCHC 08/17/2011 11:08-0400 32.1 32.0-36.0 g/dL Final 8 RDW 08/17/2011 11:08-0400 15.5 11.5-15.5 % Final 9 PLT 08/17/2011 11:08-0400 540 H 140-400 K/uL Final 10 MPV 08/17/2011 11:08-0400 8.1 6.6-11.1 fL Final 11 diff type 08/17/2011 11:08-0400 SCAN DIFF Final 12 Segs 08/17/2011 12:30-0400 87 H 40-75 % Final 13 Lymphocytes 08/17/2011 12:30-0400 11 L 18-42 % Final 14 Monos 08/17/2011 12:30-0400 2 1-11 % Final 15 Segmented Neutrophils, Abs 08/17/2011 12:30-0400 15.33 H 1.8-7.7 K/uL Final 16 Lymphs, Abs 08/17/2011 12: 1.94 1.0-4.8 K/uL Final 17 Monos, Abs 08/17/2011 12: 0.35 0.0-1.1 K/uL Final
--- OUTSIDE RECORDS SUMMARY | 2023-07-25 05:21 | External Medical Summary ---
Author Name BERNARDO OCONNELL RPH Organization K09:[facility] [facility] [address], [facility] [address] Support Name Relationship Address Phone BERNARDO OCONNELL RPH PROV Unknown Unavailable Laboratory Report Ordering Provider Test Date Status BERNARDO OCONNELL RPH 08/10/2011 13:25-0400 Final Obs # Observation Date Value ABNL Reference Status Pe rforming Location 1 PT 08/10/2011 14:31-0400 59.4 H 11.7-14.0 seconds Final 2 INR 08/10/2011 14:31-0400 7.48 HH 0.9-1.12 Final 3 INR 08/10/2011 14:31-0400 RESULTS RECHECKED Final
--- OUTSIDE RECORDS SUMMARY | 2023-07-25 05:21 | External Medical Summary ---
Author Name [facility] Organization K01:[facility], [address] [address] Support Name Relationship Address Phone [facility] PROV Unknown Unavaila ble Laboratory Report Ordering Provider Test Date Status [facility] 12/21/2011 14:46:00-0500 Fin al Obs # Observation Date Value ABNL Reference Status Pe rforming Location 1 INR, fingerstick (POC) 12/21/2011 14:45-0500 1.0 INR Final 2 Target range 12/21/2011 14:45-0500 Final Therapeutic ranges for non-operative patients: Prophylaxsis/treatment of DVT: (Range:2.0-3.0) Treatment of pulmonary embolism:(Range:2.0-3.0) Prevention of systemic embolism from: -tissue heart valves -acute myocardial infarction -valvular heart disease -atrial fibrillation (Range: 2.0-3.0) Mechanical prosthetic valves: (Range: 2.5-3.5)
--- OUTSIDE RECORDS SUMMARY | 2023-07-25 05:21 | External Medical Summary ---
Author Name TENNILLE CALIX Organization K01:[facility], [address] [address] Support Name Relationship Address Phone TENNILLE CALIX PROV Unknown Unavaila ble Laboratory Report Ordering Provider Test Date Status TENNILLE CALIX 08/10/2011 12:45-0400 Final Obs # Observation Date Value ABNL Reference Status Pe rforming Location 1 Specimen site 08/10/2011 20:38-0400 Final URINE LESS THAN 10,000 COLONIES/ML 1 COLONY TYPE FINAL
--- OUTSIDE RECORDS SUMMARY | 2023-07-25 05:21 | External Medical Summary ---
Author Name BALAJI MEDRANO DO Organization K01:[facility], [address] [address] Support Name Relationship Address Phone BALAJI MEDRANO DO PROV Unknown Unavailabl e Laboratory Report Ordering Provider Test Date Status BALAJI MEDRANO DO 08/24/2011 12:40-0400 Final Obs # Observation Date Value ABNL Reference Status Pe rforming Location 1 Ferritin 08/24/2011 22:14-0400 70.3 13-150 ng/mL Final
--- OUTSIDE RECORDS SUMMARY | 2023-07-25 05:21 | External Medical Summary ---
Author Name [facility] Organization K01:[facility], [address] [address] Support Name Relationship Address Phone [facility] PROV Unknown Unavaila ble Laboratory Report Ordering Provider Test Date Status [facility] 02/09/2012 13:54:00-0400 Fin al Obs # Observation Date Value ABNL Reference Status Pe rforming Location 1 INR, fingerstick (POC) 02/09/2012 13:52-0400 1.1 INR Final 2 Target range 02/09/2012 13:52-0400 Final Therapeutic ranges for non-operative patients: Prophylaxsis/treatment of DVT: (Range:2.0-3.0) Treatment of pulmonary embolism:(Range:2.0-3.0) Prevention of systemic embolism from: -tissue heart valves -acute myocardial infarction -valvular heart disease -atrial fibrillation (Range: 2.0-3.0) Mechanical prosthetic valves: (Range: 2.5-3.5)
--- OUTSIDE RECORDS SUMMARY | 2023-07-25 05:21 | External Medical Summary ---
Author Name KUNAL ARECHIGA MD Organization K01:[facility], [address] [address] Support Name Relationship Address Phone LIANA ARECHIGA MD PROV Unknown Mildred vailable Laboratory Report Ordering Provider Test Date Status LIANA ARECHIGA MD 08/17/2011 10:37-0400 F inal Obs # Observation Date Value ABNL Reference Status Pe rforming Location 1 Protein, Urine total 1 21:22-040 0 7 mg/dL Final 2 interpretation 1 15:04-040 0 PROTEIN LEVELS ARE TOO LOW TO FRACTIONATE. Final 3 comment 1 15:04-[address] Maryam CLEMENTE Final
--- OUTSIDE RECORDS SUMMARY | 2023-07-25 05:21 | External Medical Summary ---
Author Name Unknown Organization K09:[facility], [address], [place] [address] Support Name Relationship Address Phone BALAJI MEDRANO DO PROV Unknown Unavailabl e Laboratory Report Ordering Provider Test Date Status BALAJI MEDRANO DO 05/01/2011 11:39-0400 Final Obs # Observation Date Value ABNL Reference Status Pe rforming Location 1 HOURS FASTING 05/01/20 11 11:40-04 00 12 hours Final 2 Triglyceride 05/01/20 11 19:44-04 00 78 <200 mg/dL Final 3 Triglyceride 05/01/20 11 19:44-04 00 Final 4 Triglyceride 05/01/20 11 19:44-04 00 TRIGLYCERIDE REFERENCE RANGES (mg/dL) Final 5 Triglyceride 05/01/20 11 19:44-04 00 Final 6 Triglyceride 05/01/20 11 19:44-04 00 <150 NORMAL Final 7 Triglyceride 05/01/20 11 19:44-04 00 150-199 BORDERLINE HIGH Final 8 Triglyceride 05/01/20 11 19:44-04 00 200-499 HIGH Final 9 Triglyceride 05/01/20 11 19:44-04 00 >499 VERY HIGH Final 10 Cholesterol 05/01/20 11 19:44-04 00 202 H <200 mg/dL Final 11 HDL 05/01/20 11 19:44-04 00 63 H 40-59 mg/dL Final 12 Cholesterol / HDL ratio 05/01/20 11 19:44-04 00 3.2 Final 13 LDL (calculated) 05/01/20 11 19:44-04 00 123 0-129 mg/dL Final 14 LDL (calculated) 05/01/20 11 19:44-04 00 Final 15 LDL (calculated) 05/01/20 11 19:44-04 00 LIPID PANEL REFERENCE RANGES (mg/dL) Final 16 LDL (calculated) 05/01/20 11 19:44-04 00 Final 17 LDL (calculated) 05/01/20 11 19:44-04 00 LDL CHOLESTEROL Final 18 LDL (calculated) 05/01/20 11 19:44-04 00 <100 OPTIMAL GOAL FOR HIGH RISK PATIENTS Final 19 LDL (calculated) 05/01/20 11 19:44-04 00 100-129 NEAR OR ABOVE NORMAL Final 20 LDL (calculated) 05/01/20 11 19:44-04 00 130-159 BORDERLINE HIGH Final 21 LDL (calculated) 05/01/20 11 19:44-04 00 160-189 HIGH Final 22 LDL (calculated) 05/01/20 11 19:44-04 00 >189 VERY HIGH Final 23 LDL (calculated) 05/01/20 11 19:44-04 00 Final 24 LDL (calculated) 05/01/20 11 19:44-04 00 TOTAL CHOLESTEROL Final 25 LDL (calculated) 05/01/20 11 19:44-04 00 <200 DESIRABLE Final 26 LDL (calculated) 05/01/20 11 19:44-04 00 200-239 BORDERLINE HIGH Final 27 LDL (calculated) 05/01/20 11 19:44-04 00 >239 HIGH Final 28 LDL (calculated) 05/01/20 11 19:44-04 00 Final 29 LDL (calculated) 05/01/20 11 19:44-04 00 HDL [id number] Final 30 LDL (calculated) 05/01/20 11 19:44-04 00 <40 LOW Final 31 LDL (calculated) 05/01/20 11 19:44-04 00 40-59 NORMAL Final 32 LDL (calculated) 05/01/20 11 19:44-04 00 >59 HIGH Final
--- OUTSIDE RECORDS SUMMARY | 2023-07-25 05:21 | External Medical Summary ---
Author Name Unknown Organization R:R Support Name Relationship Address Phone [facility] [address], PROV Unknown Unavail able Laboratory Report Ordering Provider Test Date Status [facility] [address], 06/12/2011 11:39-0400 Final Obs # Observation Date Value ABNL Reference Status Pe rforming Location 1 FINGERSTICK INR 1 11:37-040 0 1.1 INR Final 2 THERAPEUTIC RANGE 1 11:37-040 0 Final 3 THERAPEUTIC RANGE 1 11:37-040 0 Therapeutic ranges for non-operative patients: Final 4 THERAPEUTIC RANGE 1 11:37-040 0 Prophylaxsis/leslie tment of DVT: (Range:2.0-3.0) Final 5 THERAPEUTIC RANGE 1 11:37-040 0 Treatment of pulmonary embolism:(Range:2 .0-3.0) Final 6 THERAPEUTIC RANGE 1 11:37-040 0 Prevention of systemic embolism from: Final 7 THERAPEUTIC RANGE 11:37-040 0 -tissue heart valves Final 8 THERAPEUTIC RANGE 1 11:37-040 0 -acute myocardial infarction Final 9 THERAPEUTIC RANGE 1 11:37-040 0 -valvular heart disease Final 10 THERAPEUTIC RANGE 1 11:37-040 0 -atrial fibrillation Final 11 THERAPEUTIC RANGE 1 11:37-040 0 (Range: 2.0-3.0) Final 12 THERAPEUTIC RANGE 1 11:37-040 0 Mechanical prosthetic valves: (Range: 2.5-3.5) Final
--- OUTSIDE RECORDS SUMMARY | 2023-07-25 05:21 | External Medical Summary ---
Author Name MARCELA HOLLINS Organization K01:[facility], [address] [address] Support Name Relationship Address Phone BALAJI MEDRANO DO Unknown Unavailable Laboratory Report Ordering Provider Test Date Status BALAJI MARCELA 12/30/2011 11:30:00-0500 Final Obs # Observation Date Value ABNL Reference Status Pe rforming Location 1 Source 12/30/2011 11:32-0500 THROAT Final 2 RESULT 12/30/2011 23:13-0500 SEE COMMENT NGADP Final NEGATIVE. NO GROUP A STREPTOCOCCUS DETECTED BY DIRECT MOLECULAR PROBE.
--- OUTSIDE RECORDS SUMMARY | 2023-07-25 05:21 | External Medical Summary ---
Author Name Unknown Organization K01:[facility], [address] [address] Support Name Relationship Address Phone BERNARDO OCONNELL RPH [facility] Unknown Unavailable Laboratory Report Ordering Provider Test Date Status BERNARDO OCONNELL RPH 03/06/2011 15:04-0400 Final Obs # Observation Date Value ABNL Reference Status Pe rforming Location 1 PT 03/06/2011 21:00-0400 14.0 12.5-14.3 seconds Final 2 INR 03/06/2011 21:00-0400 1.09 0.94-1.12 Final
--- OUTSIDE RECORDS SUMMARY | 2023-07-25 05:21 | External Medical Summary ---
Author Name BALAJI MEDRANO DO Organization K09:[facility], [address], [facility] [address] Support Name Relationship Address Phone BALAJI MEDRANO DO PROV Unknown Unavailabl e Laboratory Report Ordering Provider Test Date Status MARCELA HOLLINSBALAJI Maryam 08/24/2011 12:40-0400 Final Obs # Observation Date Value ABNL Reference Status Pe rforming Location 1 WBC 08/24/2011 13:17-0400 8.66 4.00-10.80 K/uL Final 2 RBC 08/24/2011 13:17-0400 3.95 3.85-5.15 M/uL Final 3 HGB 08/24/2011 13:17-0400 12.3 12.0-14.5 g/dL Final 4 HCT 08/24/2011 13:17-0400 39.2 36.0-44.5 % Final 5 MCV 08/24/2011 13:17-0400 99.2 H 81.5-97.5 fL Final 6 MCH 08/24/2011 13:17-0400 31.1 27.0-34.0 pg Final 7 MCHC 08/24/2011 13:17-0400 31.4 L 32.0-36.0 g/dL Final 8 RDW 08/24/2011 13:17-0400 15.4 11.5-15.5 % Final 9 PLT 08/24/2011 13:17-0400 431 H 140-400 K/uL Final 10 MPV 08/24/2011 13:17-0400 8.2 6.6-11.1 fL Final 11 diff type 08/24/2011 13:17-0400 AUTO Final 12 Segs 08/24/2011 13:17-0400 58 40-75 % Final 13 Lymphocytes 08/24/2011 13:17-0400 32 18-42 % Final 14 Monos 08/24/2011 13:17-0400 8 1-11 % Final 15 Eosinophils 08/24/2011 13:17-0400 2 0-6 % Final 16 Segmented Neutrophils, Abs 08/24/2011 13: 5.03 1.8-7.7 K/uL Final 17 Lymphs, Abs 08/24/2011 13: 2.77 1.0-4.8 K/uL Final 18 Monos, Abs 08/24/2011 13: 0.69 0.0-1.1 K/uL Final 19 Eos, Abs 08/24/2011 13: 0.17 0.0-0.7 K/uL Final
--- OUTSIDE RECORDS SUMMARY | 2023-07-25 05:21 | External Medical Summary ---
Author Name [facility], Organization R:R Support Name Relationship Address Phone [facility] [address], PROV Unknown Unavail able Laboratory Report Ordering Provider Test Date Status [facility], 10/29/2011 11:31-0500 Final Obs # Observation Date Value ABNL Reference Status Pe rforming Location 1 FINGERSTICK INR 1 11:32-050 0 4.8 INR Final 2 THERAPEUTIC RANGE 1 11:32-050 0 Final 3 THERAPEUTIC RANGE 1 11:32-050 0 Therapeutic ranges for non-operative patients: Final 4 THERAPEUTIC RANGE 1 11:32-050 0 Prophylaxsis/leslie tment of DVT: (Range:2.0-3.0) Final 5 THERAPEUTIC RANGE 1 11:32-050 0 Treatment of pulmonary embolism:(Range:2 .0-3.0) Final 6 THERAPEUTIC RANGE 1 11:32-050 0 Prevention of systemic embolism from: Final 7 THERAPEUTIC RANGE 1 11:32-050 0 -tissue heart valves Final 8 THERAPEUTIC RANGE 1 11:32-050 0 -acute myocardial infarction Final 9 THERAPEUTIC RANGE 1 11:32-050 0 -valvular heart disease Final 10 THERAPEUTIC RANGE 1 11:32-050 0 -atrial fibrillation Final 11 THERAPEUTIC RANGE 1 11:32-050 0 (Range: 2.0-3.0) Final 12 THERAPEUTIC RANGE 1 11:32-050 0 Mechanical prosthetic valves: (Range: 2.5-3.5) Final
--- OUTSIDE RECORDS SUMMARY | 2023-07-25 05:21 | External Medical Summary ---
Author Name TENNILLE CALIX Organization K09:[facility] [address] [facility] [address] Support Name Relationship Address Phone TENNILLE CALIX PROV Unknown Unavaila ble Laboratory Report Ordering Provider Test Date Status TENNILLE CALIX 08/13/2011 11:06-0400 Final Obs # Observation Date Value ABNL Reference Status Pe rforming Location 1 Potassium 08/13/2011 12:40-0400 3.6 3.5-5.1 mmol/L Final
--- OUTSIDE RECORDS SUMMARY | 2023-07-25 05:21 | External Medical Summary ---
Author Name BALAJI MEDRANO DO Organization K09:[facility], [address] , [facility] [address] Support Name Relationship Address Phone BALAJI MEDRANO DO PROV Unknown Unavailabl e Laboratory Report Ordering Provider Test Date Status MARCELA HOLLINSBALAJI Maryam 08/24/2011 12:40-0400 Final Obs # Observation Date Value ABNL Reference Status Pe rforming Location 1 BUN 1 13:39-040 0 14 6-20 mg/dL Final 2 Creatinine 1 13:39-040 0 0.6 0.5-1.1 mg/dL Final 3 Creatinine 1 13:39-040 0 GFR should be used to assess renal function. Plasma/Serum creatinine may not be able to properly reflect renal function in some cases. Final 4 Sodium 1 13:39-040 0 142 135-146 mmol/L Final 5 Potassium 1 13:39-040 0 3.9 3.5-5.1 mmol/L Final 6 Cl 1 13:39-040 0 106 98-111 mmol/L Final 7 CO2 1 13:39-040 0 30 22-32 mmol/L Final 8 Glucose 1 13:39-040 0 78 70-120 mg/dL Final 9 Albumin 1 13:39-040 0 4.0 3.8-5.0 g/dL Final 10 AST (Aspartate aminotransferase ) 1 13:39-040 0 9 L 10-35 U/L Final 11 Alk Phos 1 13:39-040 0 68 0-153 U/L Final 12 Bilirubin, Total 1 13:39-040 0 0.2 L 0.3-1.3 mg/dL Final 13 Calcium 1 13:39-040 0 8.9 8.3-10.5 mg/dL Final 14 Protein 1 13:39-040 0 6.6 6.0-8.3 g/dL Final 15 ALT (Alanine aminotransferase ) 1 13:39-040 0 9 L 10-35 U/L Final 16 Anion gap 1 13:39-040 0 6 L 7-15 mmol/L Final 17 GFR (estimated) 1 13:39-040 0 >60.0 >60 mL/min Final
--- OUTSIDE RECORDS SUMMARY | 2023-07-25 05:21 | External Medical Summary ---
Author Name TENNILLE CALIX Organization K09:[facility] [place] , [facility] [address] Support Name Relationship Address Phone TENNILLE CALIX PROV Unknown Unavaila ble Laboratory Report Ordering Provider Test Date Status TENNILLE CALIX 08/13/2011 11:0400 Final Obs # Observation Date Value ABNL Reference Status Pe rforming Location 1 PT 08/13/2011 13:0400 47.1 H 11.7-14.0 seconds Final 2 PT 08/13/2011 13:27-0400 RESULTS RECHECKED Final 3 INR 08/13/2011 13:27-0400 5.48 HH 0.9-1.12 Final 4 INR 08/13/2011 13:27-0400 RESULTS RECHECKED Final
--- OUTSIDE RECORDS SUMMARY | 2023-07-25 05:21 | External Medical Summary ---
Author Name [facility] Organization K01:[facility], [address] [address] Support Name Relationship Address Phone [facility] PROV Unknown Unavaila ble Laboratory Report Ordering Provider Test Date Status [facility] 11/23/2011 14:56:00-0500 Fin al Obs # Observation Date Value ABNL Reference Status Pe rforming Location 1 INR, fingerstick (POC) 11/23/2011 14:55-0500 2.5 INR Final 2 Target range 11/23/2011 14:55-0500 Final Therapeutic ranges for non-operative patients: Prophylaxsis/treatment of DVT: (Range:2.0-3.0) Treatment of pulmonary embolism:(Range:2.0-3.0) Prevention of systemic embolism from: -tissue heart valves -acute myocardial infarction -valvular heart disease -atrial fibrillation (Range: 2.0-3.0) Mechanical prosthetic valves: (Range: 2.5-3.5)
--- OUTSIDE RECORDS SUMMARY | 2023-07-25 05:21 | External Medical Summary ---
Author Name Unknown Organization K09:[facility] [address] [place] [address] Support Name Relationship Address Phone KOURTNEY LANNYBERNARDO Andrews PROV Unknown Unavailable Laboratory Report Ordering Provider Test Date Status BERNARDO OCONNELL RPH 05/19/2011 12:32-0400 Final Obs # Observation Date Value ABNL Reference Status Pe rforming Location 1 PT 05/19/2011 15:27-0400 24.7 H 11.7-14.0 seconds Final 2 INR 05/19/2011 15:27-0400 2.30 H 0.9-1.12 Final
--- OUTSIDE RECORDS SUMMARY | 2023-07-25 05:21 | External Medical Summary ---
Author Name Unknown Organization K01:[facility], [address] [address] Support Name Relationship Address Phone BALAJI MEDRANO DO PROV Unknown Unavailabl e Laboratory Report Ordering Provider Test Date Status BALAJI MEDRANO DO 05/01/2011 11:39-0400 Final Obs # Observation Date Value ABNL Reference Status Pe rforming Location 1 TSH 05/01/2011 20:07-0400 1.07 0.27-4.2 uIU/mL Final
--- OUTSIDE RECORDS SUMMARY | 2023-07-25 05:21 | External Medical Summary ---
Author Name Unknown Organization K09:[facility], [address] [facility] , [place] [address] Support Name Relationship Address Phone BALAJI MEDRANO DO PROV Unknown Unavailabl e Laboratory Report Ordering Provider Test Date Status BALAJI MEDRANO DO 05/01/2011 11:39-0400 Final Obs # Observation Date Value ABNL Reference Status Pe rforming Location 1 WBC 05/01/2011 11:51-0400 10.86 H 4.00-10.80 K/uL Final 2 RBC 05/01/2011 11:51-0400 4.42 3.85-5.15 M/uL Final 3 HGB 05/01/2011 11:51-0400 13.8 12.0-14.5 g/dL Final 4 HCT 05/01/2011 11:51-0400 42.4 36.0-44.5 % Final 5 MCV 05/01/2011 11:51-0400 95.9 81.5-97.5 fL Final 6 MCH 05/01/2011 11:51-0400 31.2 27.0-34.0 pg Final 7 MCHC 05/01/2011 11:51-0400 32.5 32.0-36.0 g/dL Final 8 RDW 05/01/2011 11:51-0400 15.5 11.5-15.5 % Final 9 PLT 05/01/2011 11:51-0400 390 140-400 K/uL Final 10 MPV 05/01/2011 11:51-0400 8.3 6.6-11.1 fL Final
--- OUTSIDE RECORDS SUMMARY | 2023-07-25 05:21 | External Medical Summary ---
Author Name Unknown Organization K09:[facility] [address] [place] [address] Support Name Relationship Address Phone BERNARDO OCONNELL RPH PROV Unknown Unavailable Laboratory Report Ordering Provider Test Date Status KOURTNEY YUANEDENBERNARDO 06/02/2011 14:31-0400 Final Obs # Observation Date Value ABNL Reference Status Pe rforming Location 1 PT 06/02/2011 15:15-0400 53.9 H 11.7-14.0 seconds Final 2 PT 06/02/2011 15:15-0400 RESULTS RECHECKED Final 3 INR 06/02/2011 15:15-0400 6.35 HH 0.9-1.12 Final 4 INR 06/02/2011 15:15-0400 RESULTS RECHECKED Final
--- OUTSIDE RECORDS SUMMARY | 2023-07-25 05:21 | External Medical Summary ---
Author Name [facility] Organization K01:[facility], [address] [address] Support Name Relationship Address Phone [facility], BERNARDO CUELLAR Unknown Unavailable Laboratory Report Ordering Provider Test Date Status BERNARDO [facility] 06/03/2012 15:11:00-0400 Final Obs # Observation Date Value ABNL Reference Status Pe rforming Location 1 PT 06/03/2012 21:210400 13.4 12.5-14.3 seconds Final 2 INR 06/03/2012 21:21-0400 1.04 0.94-1.12 Final
--- OUTSIDE RECORDS SUMMARY | 2023-07-25 05:21 | External Medical Summary ---
Author Name Unknown Organization K09:[facility], [address], [place] [address] Support Name Relationship Address Phone BALAJI MEDRANO DO PROV Unknown Unavailabl e Laboratory Report Ordering Provider Test Date Status BALAJI MEDRANO DO 05/01/2011 11:39-0400 Final Obs # Observation Date Value ABNL Reference Status Pe rforming Location 1 BUN 05/01/2011 13:220400 16 6-20 mg/dL Final 2 Creatinine 05/01/2011 13:22-0400 0.6 L 0.7-1.5 mg/dL Final 3 Sodium 05/01/2011 13:22-0400 140 135-146 mmol/L Final 4 Potassium 05/01/2011 13:-0400 4.2 3.5-5.1 mmol/L Final 5 Cl 05/01/2011 13:22-0400 105 98-111 mmol/L Final 6 CO2 05/01/2011 13:22-0400 26 22-32 mmol/L Final 7 Glucose 05/01/2011 13:22-0400 87 70-120 mg/dL Final 8 Albumin, Serum 05/01/2011 13:22-0400 4.2 3.8-5.0 g/dL Final 9 AST (Aspartate aminotransferase) 05/01/2011 13:22-0400 17 10-35 U/L Final 10 Alk Phos 05/01/2011 13:-0400 70 25-125 U/L Final 11 Bilirubin, Total 05/01/2011 13:22-0400 0.2 L 0.3-1.3 mg/dL Final 12 Calcium 05/01/2011 13:22-0400 9.4 8.3-10.5 mg/dL Final 13 Protein 05/01/2011 13:22-0400 6.9 6.0-8.3 g/dL Final 14 ALT (Alanine aminotransferase) 05/01/2011 13:22-0400 5 L 10-35 U/L Final 15 Anion gap 05/01/2011 13:22-0400 9 7-15 mmol/L Final 16 GFR / 1.73 sq M.predicted 05/01/2011 13:22-0400 >60.0 >60 mL/min Final
--- OUTSIDE RECORDS SUMMARY | 2023-07-25 05:21 | External Medical Summary ---
Author Name Unknown Organization K09:[facility], [address], [place] [address] Support Name Relationship Address Phone LIANA ARECHIGA MD PROV Unknown Mildred vailable Laboratory Report Ordering Provider Test Date Status LIANA ARECHIGA MD 07/17/2011 13:50-0400 F inal Obs # Observation Date Value ABNL Reference Status Pe rforming Location 1 Color, UA 14:20-040 0 YELLOW YEL Final 2 Clarity, UA 14:20-040 0 CLEAR CLEAR Final 3 Glucose, UA 14:20-040 0 NEGATIVE NEG mg/dL Final 4 Bilirubin, UA 14:20-040 0 SMALL A NEG Final 5 Ketones, UA 14:20-040 0 15 A NEG mg/dL Final 6 Specific gravity, UA 14:20-040 0 1.025 1.003-1.030 Final 7 Hemoglobin, qual. 14:20-040 0 NEGATIVE NEG Final 8 pH, UA 14:20-040 0 5.0 5-6 units Final 9 Protein, UA 14:20-040 0 NEGATIVE NEG mg/dL Final 10 Urobilinogen, UA 14:20-040 0 NORMAL NORM EU/dL Final 11 Nitrite, UA 14:20-040 0 NEGATIVE NEG Final 12 Leukocyte esterase, UA 14:20-040 0 NEGATIVE NEG Final 13 Comment, UA 14:20-040 0 FEW Final 14 Comment, UA 14:20-040 0 SQUAMOUS EPITHELIAL CELLS Final 15 Bacteria, UA 14:20-040 0 FEW A NONE Final 16 WBC, UA 14:20-040 0 1-4 /HPF Final 17 RBC, UA 09/02/201 1 14:20-040 0 1-4 /HPF Final 18 ICTOTEST, UA 1 14:20-040 0 TEST NOT PERFORMED A NEG Final
--- OUTSIDE RECORDS SUMMARY | 2023-07-25 05:21 | External Medical Summary ---
Author Name [facility] Organization K01:[facility], [address] [address] Support Name Relationship Address Phone [facility], BERNARDO CUELLAR Unknown Unavailable Laboratory Report Ordering Provider Test Date Status BERNARDO [facility] 01/19/2012 16:18:00-0500 Final Obs # Observation Date Value ABNL Reference Status Pe rforming Location 1 PT 01/19/2012 22:03-0500 31.2 H 12.5-14.3 seconds Final 2 INR 01/19/2012 22:03-0500 3.08 H 0.94-1.12 Final
--- OUTSIDE RECORDS SUMMARY | 2023-07-25 05:21 | External Medical Summary ---
Author Name KUNAL ARECHIGA MD Organization K01[facility], [address] [address] Support Name Relationship Address Phone LIANA ARECHIGA MD PROV Unknown Mildred vailable Laboratory Report Ordering Provider Test Date Status LIANA ARECHIGA MD 08/15/2011 09:36-0400 F inal Obs # Observation Date Value ABNL Reference Status Pe rforming Location 1 WBC 08/15/2011 19:08-0400 14.12 H 4.00-10.80 K/uL Final 2 RBC 08/15/2011 19:08-0400 3.85 3.85-5.15 M/uL Final 3 HGB 08/15/2011 19:08-0400 12.3 12.0-14.5 g/dL Final 4 HCT 08/15/2011 19:08-0400 37.5 36.0-44.5 % Final 5 MCV 08/15/2011 19:08-0400 97.4 81.5-97.5 fL Final 6 MCH 08/15/2011 19:08-0400 31.9 27.0-34.0 pg Final 7 MCHC 08/15/2011 19:08-0400 32.8 32.0-36.0 g/dL Final 8 RDW 08/15/2011 19:08-0400 15.0 11.5-15.5 % Final 9 PLT 08/15/2011 19:08-0400 422 H 140-400 K/uL Final 10 MPV 08/15/2011 19:08-0400 9.1 6.6-11.1 fL Final
--- OUTSIDE RECORDS SUMMARY | 2023-07-25 05:21 | External Medical Summary ---
Author Name Unknown Organization K01:[facility], [address] [address] Support Name Relationship Address Phone TENNILLE CALIX PROV Unknown Unavaila ble Laboratory Report Ordering Provider Test Date Status TENNILLE CALIX 05/29/2011 12:30-0400 Final Obs # Observation Date Value ABNL Reference Status Pe rforming Location 1 Specimen site 05/29/2011 16:30-0400 Final URINE 10,000 TO 100,000 COLONIES/ML ESCHERICHIA COLI LESS THAN 10,000 COLONIES/ML ONE OTHER SPECIES FINAL 10,000 TO 100,000 COLONIES/ML ESCHERICHIA COLI VITEK SUSCEPTIBLE SUSCEPTIBLE SUSCEPTIBLE SUSCEPTIBLE SUSCEPTIBLE SUSCEPTIBLE
--- OUTSIDE RECORDS SUMMARY | 2023-07-25 05:21 | External Medical Summary ---
Author Name Unknown Organization R:R Support Name Relationship Address Phone [facility] [address], PROV Unknown Unavail able Laboratory Report Ordering Provider Test Date Status [facility] [address], 07/27/2011 13:37-0400 Final Obs # Observation Date Value ABNL Reference Status Pe rforming Location 1 FINGERSTICK INR 1 13:35-040 0 1.2 INR Final 2 THERAPEUTIC RANGE 1 13:35-040 0 Final 3 THERAPEUTIC RANGE 1 13:35-040 0 Therapeutic ranges for non-operative patients: Final 4 THERAPEUTIC RANGE 1 13:35-040 0 Prophylaxsis/leslie tment of DVT: (Range:2.0-3.0) Final 5 THERAPEUTIC RANGE 1 13:35-040 0 Treatment of pulmonary embolism:(Range:2 .0-3.0) Final 6 THERAPEUTIC RANGE 1 13:35-040 0 Prevention of systemic embolism from: Final 7 THERAPEUTIC RANGE 1 13:35-040 0 -tissue heart valves Final 8 THERAPEUTIC RANGE 1 13:35-040 0 -acute myocardial infarction Final 9 THERAPEUTIC RANGE 1 13:35-040 0 -valvular heart disease Final 10 THERAPEUTIC RANGE 1 13:35-040 0 -atrial fibrillation Final 11 THERAPEUTIC RANGE 1 13:35-040 0 (Range: 2.0-3.0) Final 12 THERAPEUTIC RANGE 1 13:35-040 0 Mechanical prosthetic valves: (Range: 2.5-3.5) Final
--- OUTSIDE RECORDS SUMMARY | 2023-07-25 05:21 | External Medical Summary ---
Author Name [facility] Organization K01:[facility], [address] [address] Support Name Relationship Address Phone [facility], BERNARDO CUELLAR Unknown Unavailable Laboratory Report Ordering Provider Test Date Status BERNARDO [facility] 07/22/2012 14:46:00-0400 Final Obs # Observation Date Value ABNL Reference Status Pe rforming Location 1 PT 07/22/2012 20:50-0400 12.8 12.5-14.3 seconds Final 2 INR 07/22/2012 20:50-0400 0.98 0.94-1.12 Final
--- OUTSIDE RECORDS SUMMARY | 2023-07-25 05:21 | External Medical Summary ---
Author Name KUNAL ARECHIGA MD Organization K01:[facility], [address] [address] Support Name Relationship Address Phone LIANA ARECHIGA MD PROV Unknown Mildred vailable Laboratory Report Ordering Provider Test Date Status LIANA ARECHIGA MD 08/17/2011 10:38-0400 F inal Obs # Observation Date Value ABNL Reference Status Pe rforming Location 1 Protein 08/17/20 11 18:04-04 00 6.6 6.0-8.3 g/dL Final 2 Albumin 08/18/20 11 15:20-04 00 3.34 3.3-4.4 g/dL Final 3 Alpha-1 globulin 08/18/20 11 15:20-04 00 0.27 0.1-0.3 g/dL Final 4 Alpha-2 globulin 08/18/20 11 15:20-04 00 1.16 H 0.6-1.0 g/dL Final 5 Beta-globulin 08/18/20 11 15:20-04 00 0.99 0.8-1.3 g/dL Final 6 Gamma globulin 08/18/20 11 15:20-04 00 0.84 0.7-1.7 g/dL Final 7 SPEP interpretation 08/18/20 11 15:20-04 00 NO PARAPROTEIN IS DETECTED. Final 8 SPEP comment 08/18/20 11 15:20-[address] Maryam CLEMENTE Final
--- OUTSIDE RECORDS SUMMARY | 2023-07-25 05:21 | External Medical Summary ---
Author Name KUNAL ARECHIGA MD Organization K01:[facility], [facility] [address] [address] Support Name Relationship Address Phone LIANA ARECHIGA MD PROV Unknown Mildred vailable Laboratory Report Ordering Provider Test Date Status LIANA ARECHIGA MD 08/15/2011 09:36-0400 F inal Obs # Observation Date Value ABNL Reference Status Pe rforming Location 1 PT 08/15/2011 19:22-0400 18.3 H 12.5-14.3 seconds Final 2 INR 08/15/2011 19:22-0400 1.51 H 0.94-1.12 Final
--- OUTSIDE RECORDS SUMMARY | 2023-07-25 05:21 | External Medical Summary ---
Author Name Unknown Organization K09:[facility] [address] [place] [address] Support Name Relationship Address Phone BERNARDO OCONNELL RPH PROV Unknown Unavailable Laboratory Report Ordering Provider Test Date Status BERNARDO OCONNELL RPH 06/02/2011 14:280400 Final Obs # Observation Date Value ABNL Reference Status Pe rforming Location 1 FINGERSTICK INR 1 12:52-040 0 >8.0 INR Final 2 THERAPEUTIC RANGE 1 12:51-040 0 Final 3 THERAPEUTIC RANGE 1 12:51-040 0 Therapeutic ranges for non-operative patients: Final 4 THERAPEUTIC RANGE 1 12:51-040 0 Prophylaxsis/leslie tment of DVT: (Range:2.0-3.0) Final 5 THERAPEUTIC RANGE 1 12:51-040 0 Treatment of pulmonary embolism:(Range:2 .0-3.0) Final 6 THERAPEUTIC RANGE 1 12:51-040 0 Prevention of systemic embolism from: Final 7 THERAPEUTIC RANGE 1 12:51-040 0 -tissue heart valves Final 8 THERAPEUTIC RANGE 1 12:51-040 0 -acute myocardial infarction Final 9 THERAPEUTIC RANGE 1 12:51-040 0 -valvular heart disease Final 10 THERAPEUTIC RANGE 1 12:51-040 0 -atrial fibrillation Final 11 THERAPEUTIC RANGE 1 12:51-040 0 (Range: 2.0-3.0) Final 12 THERAPEUTIC RANGE 1 12:51-040 0 Mechanical prosthetic valves: (Range: 2.5-3.5) Final
--- OUTSIDE RECORDS SUMMARY | 2023-07-25 05:22 | External Medical Summary ---
Author Name Unknown Organization K01:[facility], [address] [address] Support Name Relationship Address Phone TENNILLE CALIX PROV Unknown Unavaila ble Laboratory Report Ordering Provider Test Date Status TENNILLE CALIX 02/26/2011 09:55-0400 Final Obs # Observation Date Value ABNL Reference Status Pe rforming Location 1 Specimen site 02/26/2011 13:12-0400 Final STOOL Negative. No C difficile toxin B gene DNA detected by PCR. FINAL
--- OUTSIDE RECORDS SUMMARY | 2023-07-25 05:22 | External Medical Summary ---
Author Name Unknown Organization K09:[facility], [address], [place] [address] Support Name Relationship Address Phone TENNILLE CALIX PROV Unknown Unavaila ble Laboratory Report Ordering Provider Test Date Status TENNILLE CALIX 02/25/2011 11:49-0400 Final Obs # Observation Date Value ABNL Reference Status Pe rforming Location 1 WBC 02/25/2011 12:0400 9.89 4.00-10.80 K/uL Final 2 RBC 02/25/2011 12:0 4.51 3.85-5.15 M/uL Final 3 HGB 02/25/2011 12:0400 14.1 12.0-14.5 g/dL Final 4 HCT 02/25/2011 12:0 42.8 36.0-44.5 % Final 5 MCV 02/25/2011 12:0 94.9 81.5-97.5 fL Final 6 MCH 02/25/2011 12:0 31.3 27.0-34.0 pg Final 7 MCHC 02/25/2011 12:0400 32.9 32.0-36.0 g/dL Final 8 RDW 02/25/2011 12:0400 14.9 11.5-15.5 % Final 9 PLT 02/25/2011 12:0 354 140-400 K/uL Final 10 MPV 02/25/2011 12:0400 8.3 6.6-11.1 fL Final 11 DIFF TYPE 02/25/2011 12:0400 AUTO Final 12 Segs 02/25/2011 12:0400 59 40-75 % Final 13 Lymph 02/25/2011 12:05-0400 32 18-42 % Final 14 [place] 02/25/2011 12:050400 8 1-11 % Final 15 Eosinophils 02/25/2011 12:05-0400 1 0-6 % Final 16 Neutrophils, Segmented 02/25/2011 12:05-0400 5.84 1.8-7.7 K/uL Final 17 Abs. Lymphs 02/25/2011 12:050400 3.16 1.0-4.8 K/uL Final 18 Abs. Monos 02/25/2011 12:050400 0.79 0.0-1.1 K/uL Final 19 ABS. EOS 02/25/2011 12:0400 0.10 0.0-0.7 K/uL Final
--- OUTSIDE RECORDS SUMMARY | 2023-07-25 05:22 | External Medical Summary ---
Author Name Unknown Organization [facility] tem Support Name Relationship Address Phone Unavailable PROV Unknown Unavailable Laboratory Report Ordering Provider Test Date Status 07/29/2010 14:48-0400 F Obs # Observation Date Value ABNL Reference Status Pe rforming Location 1 PT PPP Qn 07/29/2010 15:57-0400 22.9 H 11.7-14.0 seconds Final 2 INR PPP Qn 07/29/2010 15:57-0400 2.09 H 0.9-1.12 Final
--- OUTSIDE RECORDS SUMMARY | 2023-07-25 05:22 | External Medical Summary ---
Author Name Unknown Organization K09:[facility], [address], [place] [address] Support Name Relationship Address Phone TENNILLE CALIX PROV Unknown Unavaila ble Laboratory Report Ordering Provider Test Date Status TENNILLE CALIX 01/29/2011 13:59-0400 Final Obs # Observation Date Value ABNL Reference Status Pe rforming Location 1 WBC 01/29/2011 14:18-0400 12.87 H 4.00-10.80 K/uL Final 2 RBC 01/29/2011 14:18-0400 4.48 3.85-5.15 M/uL Final 3 HGB 01/29/2011 14:18-0400 14.0 12.0-14.5 g/dL Final 4 HCT 01/29/2011 14:180400 42.8 36.0-44.5 % Final 5 MCV 01/29/2011 14:180400 95.5 81.5-97.5 fL Final 6 MCH 01/29/2011 14:18-0400 31.3 27.0-34.0 pg Final 7 MCHC 01/29/2011 14:18-0400 32.7 32.0-36.0 g/dL Final 8 RDW 01/29/2011 14:18-0400 14.5 11.5-15.5 % Final 9 PLT 01/29/2011 14:180400 382 140-400 K/uL Final 10 MPV 01/29/2011 14:18-0400 8.1 6.6-11.1 fL Final
--- OUTSIDE RECORDS SUMMARY | 2023-07-25 05:22 | External Medical Summary ---
Author Name Unknown Organization [facility] tem Support Name Relationship Address Phone LIANA ARECHIGA MD PROV Unknown Mildred vailable Laboratory Report Ordering Provider Test Date Status LIANA ARECHIGA MD 10/27/2010 14:36-0500 F Obs # Observation Date Value ABNL Reference Status Pe rforming Location 1 [facility] 10/28/2010 01:57-0500 0.67 0.27-4.2 uIU/mL Final
--- OUTSIDE RECORDS SUMMARY | 2023-07-25 05:22 | External Medical Summary ---
Author Name Unknown Organization K01:[facility], [address] [facility] [address] Support Name Relationship Address Phone BALAJI MEDRANO DO PROV Unknown Unavailabl e Laboratory Report Ordering Provider Test Date Status BALAJI MEDRANO DO 01/31/2011 14:25-0400 Final Obs # Observation Date Value ABNL Reference Status Pe rforming Location 1 BUN 01/31/2011 21:04-0400 12 6-20 mg/dL Final 2 Creatinine 01/31/2011 21:04-0400 0.6 L 0.7-1.5 mg/dL Final 3 Sodium 01/31/2011 21:04-0400 143 135-146 mmol/L Final 4 Potassium 01/31/2011 21:04-0400 4.3 3.5-5.1 mmol/L Final 5 Cl 01/31/2011 21:04-0400 103 98-111 mmol/L Final 6 CO2 01/31/2011 21:04-0400 30 22-32 mmol/L Final 7 Glucose 01/31/2011 21:04-0400 62 L 70-120 mg/dL Final 8 Albumin, Serum 01/31/2011 21:04-0400 4.3 3.8-5.0 g/dL Final 9 AST (Aspartate aminotransferase) 01/31/2011 21:04-0400 15 10-35 U/L Final 10 Alk Phos 01/31/2011 21:04-0400 74 25-125 U/L Final 11 Bilirubin, Total 01/31/2011 21:04-0400 0.3 0.3-1.3 mg/dL Final 12 Calcium 01/31/2011 21:04-0400 9.8 8.3-10.5 mg/dL Final 13 Protein 01/31/2011 21:04-0400 7.0 6.0-8.3 g/dL Final 14 ALT (Alanine aminotransferase) 01/31/2011 21:04-0400 12 10-35 U/L Final 15 Anion gap 01/31/2011 21:04-0400 10 7-15 mmol/L Final 16 GFR / 1.73 sq M.predicted 01/31/2011 21:04-0400 >60.0 >60 mL/min Final
--- OUTSIDE RECORDS SUMMARY | 2023-07-25 05:22 | External Medical Summary ---
Author Name Unknown Organization [employer] tem Support Name Relationship Address Phone Unavailable PROV Unknown Unavailable Laboratory Report Ordering Provider Test Date Status 07/29/2010 14:46-0400 F Obs # Observation Date Value ABNL Reference Status Pe rforming Location 1 WBC # d 07/29/2010 15:120400 10.44 4.00-10.80 K/uL Final 2 RBC # d 07/29/2010 15:120400 4.58 3.85-5.15 M/uL Final 3 Hgb Bld-nc 07/29/2010 15:12-0400 14.9 H 12.0-14.5 g/dL Final 4 Hct Fr d 07/29/2010 15:120400 44.0 36.0-44.5 % Final 5 MCV RBC n 07/29/2010 15:12-0400 96.1 81.5-97.5 fL Final 6 MCH RBC Qn 07/29/2010 15:120400 32.6 27.0-34.0 pg Final 7 MCHC RBC-nc 07/29/2010 15:12-0400 33.9 32.0-36.0 g/dL Final 8 RDW RBC Qn 07/29/2010 15:120400 13.5 11.5-15.5 % Final 9 Platelet # d 07/29/2010 15:120400 368 150-400 K/uL Final 10 PMV Bld Qn 07/29/2010 15:12-0400 6.4 L 6.6-11.1 fL Final
--- OUTSIDE RECORDS SUMMARY | 2023-07-25 05:22 | External Medical Summary ---
Author Name Unknown Organization [employer] [facility] tem Support Name Relationship Address Phone TENNILLE CALIX PROV Unknown Unavaila ble Laboratory Report Ordering Provider Test Date Status TENNILLE CALIX 10/08/2010 12:38-0500 F Obs # Observation Date Value ABNL Reference Status Pe rforming Location 1 BUN [facility] 10/08/2010 13:28-0500 11 6-20 mg/dL Final 2 Creat [facility] 10/08/2010 13:28-0500 0.6 L 0.7-1.5 mg/dL Final 3 Sodium [facility] 10/08/2010 13:28-0500 139 135-146 mmol/L Final 4 Potassium [facility] 10/08/2010 13:28-0500 3.2 L 3.5-5.1 mmol/L Final 5 Chloride [facility] 10/08/2010 13:28-0500 100 98-111 mmol/L Final 6 CO2 [facility] 10/08/2010 13:28-0500 29 22-32 mmol/L Final 7 Glucose [facility] 10/08/2010 13:28-0500 88 70-120 mg/dL Final 8 Albumin [facility] 10/08/2010 13:28-0500 4.1 3.8-5.0 g/dL Final 9 AST [facility] 10/08/2010 13:28-0500 17 10-35 U/L Final 10 [facility] 10/[facility]/2010 13:28-0500 73 25-125 U/L Final 11 Bilirub [facility] 10/08/2010 13:28-0500 0.2 L 0.3-1.3 mg/dL Final 12 Calcium [facility] 10/08/2010 13:28-0500 9.3 8.3-10.5 mg/dL Final 13 Prot SerPl-nc 10/08/2010 13:28-0500 6.9 6.0-8.3 g/dL Final 14 ALT [facility] 10/08/2010 13:28-0500 10 10-35 U/L Final 15 Anion Gap SerPl-s[facility]nc 10/08/2010 13:28-0500 10 7-15 mEq/L Final 16 Pred GFR SerPl MDRD-vRate 10/08/2010 13:28-0500 >60.0 >60 mL/min Final
--- OUTSIDE RECORDS SUMMARY | 2023-07-25 05:22 | External Medical Summary ---
Author Name Unknown Organization [facility] tem Support Name Relationship Address Phone BERNARDO OCONNELL RPH Unknown Unavailable Laboratory Report Ordering Provider Test Date Status BERNARDO OCONNELL RPH 10/13/2010 10:55-0500 F Obs # Observation Date Value ABNL Reference Status Pe rforming Location 1 PT PPP Qn 10/13/2010 12:14-0500 14.9 H 11.7-14.0 seconds Final 2 INR PPP Qn 10/13/2010 12:14-0500 1.19 H 0.9-1.12 Final
--- OUTSIDE RECORDS SUMMARY | 2023-07-25 05:22 | External Medical Summary ---
Author Name Unknown Organization K01:[facility], [address] [address] Support Name Relationship Address Phone BERNARDO OCONNELL RPH [facility] Unknown Unavailable Laboratory Report Ordering Provider Test Date Status BERNARDO OCONNELL RPH 01/23/2011 10:20-0500 Final Obs # Observation Date Value ABNL Reference Status Pe rforming Location 1 PT 01/23/2011 14:20-0500 17.7 H 12.5-14.3 seconds Final 2 INR 01/23/2011 14:20-0500 1.48 H 0.94-1.12 Final
--- OUTSIDE RECORDS SUMMARY | 2023-07-25 05:22 | External Medical Summary ---
Author Name Unknown Organization [employer] tem Support Name Relationship Address Phone BERNARDO OCONNELL RPH Unknown Unavailable Laboratory Report Ordering Provider Test Date Status BERNARDO OCONNELL RPH 09/11/2010 09:41-0400 F Obs # Observation Date Value ABNL Reference Status Pe rforming Location 1 PT PPP Qn 09/11/2010 14:30-0400 12.5 12.5-14.3 seconds Final 2 INR PPP Qn 09/11/2010 14:30-0400 0.94 0.94-1.12 Final
--- OUTSIDE RECORDS SUMMARY | 2023-07-25 05:22 | External Medical Summary ---
Author Name Unknown Organization [employer] tem Support Name Relationship Address Phone LIANA ARECHIGA MD PROV Unknown Mildred vailable Laboratory Report Ordering Provider Test Date Status LIANA ARECHIGA MD 10/27/2010 14:36-0500 F Obs # Observation Date Value ABNL Reference Status Pe rforming Location 1 BUN [facility] 10/27/2010 15:31-0500 14 6-20 mg/dL Final 2 Creat [facility] 10/27/2010 15:31-0500 0.5 L 0.7-1.5 mg/dL Final 3 Sodium [facility] 10/27/2010 15:31-0500 140 135-146 mmol/L Final 4 Potassium [facility] 10/27/2010 15:31-0500 2.8 L 3.5-5.1 mmol/L Final 5 Chloride [facility] 10/27/2010 15:31-0500 103 98-111 mmol/L Final 6 CO2 [facility] 10/27/2010 15:31-0500 26 22-32 mmol/L Final 7 Glucose [facility] 10/27/2010 15:31-0500 128 H 70-120 mg/dL Final 8 Albumin [facility] 10/27/2010 15:31-0500 4.0 3.8-5.0 g/dL Final 9 AST [facility] 10/27/2010 15:31-0500 12 10-35 U/L Final 10 ALP [facility] [place] 10/27/2010 15:31-0500 75 25-125 U/L Final 11 Bilirub [facility] 10/27/2010 15:31-0500 0.2 L 0.3-1.3 mg/dL Final 12 Calcium [facility] 10/27/2010 15:31-0500 9.3 8.3-10.5 mg/dL Final 13 Prot [facility] 10/27/2010 15:31-0500 6.7 6.0-8.3 g/dL Final 14 ALT SerPl-cCnc 10/27/2010 15:31-0500 8 L 10-35 U/L Final 15 Anion Gap SerPl-sCnc 10/27/2010 15:31-0500 11 7-15 mEq/L Final 16 Pred GFR SerPl MDRD-vRate 10/27/2010 15:31-0500 >60.0 >60 mL/min Final
--- OUTSIDE RECORDS SUMMARY | 2023-07-25 05:22 | External Medical Summary ---
Author Name Unknown Organization K01:[facility], [address] [address] Support Name Relationship Address Phone BALAJI MEDRANO DO PROV Unknown Unavailabl e Laboratory Report Ordering Provider Test Date Status BALAJI MEDRANO DO 01/31/2011 14:24-0400 Final Obs # Observation Date Value ABNL Reference Status Pe rforming Location 1 Specimen site 01/31/2011 20:12-0400 Final CLEAN CATCH URINE LESS THAN 10,000 COLONIES/ML 1 COLONY TYPE FINAL
--- OUTSIDE RECORDS SUMMARY | 2023-07-25 05:22 | External Medical Summary ---
Author Name Unknown Organization K01:[facility], [address] [address] Support Name Relationship Address Phone BALAJI MEDRANO DO PROV Unknown Unavailabl e Laboratory Report Ordering Provider Test Date Status BALAJI MEDRANO DO 01/05/2011 16:44-0500 Final Obs # Observation Date Value ABNL Reference Status Pe rforming Location 1 BUN 01/05/2011 22:04-0500 15 6-20 mg/dL Final 2 Creatinine 01/05/2011 22:04-0500 0.5 L 0.7-1.5 mg/dL Final 3 Sodium 01/05/2011 22:04-0500 142 135-146 mmol/L Final 4 Potassium 01/05/2011 22:04-0500 4.0 3.5-5.1 mmol/L Final 5 Cl 01/05/2011 22:04-0500 108 98-111 mmol/L Final 6 CO2 01/05/2011 22:04-0500 27 22-32 mmol/L Final 7 Glucose 01/05/2011 22:04-0500 80 70-120 mg/dL Final 8 Albumin, Serum 01/05/2011 22:04-0500 4.0 3.8-5.0 g/dL Final 9 AST (Aspartate aminotransferase) 01/05/2011 22:04-0500 15 10-35 U/L Final 10 Alk Phos 01/05/2011 22:04-0500 72 25-125 U/L Final 11 Bilirubin, Total 01/05/2011 22:04-0500 0.1 L 0.3-1.3 mg/dL Final 12 Calcium 01/05/2011 22:04-0500 9.5 8.3-10.5 mg/dL Final 13 Protein 01/05/2011 22:04-0500 6.6 6.0-8.3 g/dL Final 14 ALT (Alanine aminotransferase) 01/05/2011 22:04-0500 5 L 10-35 U/L Final 15 Anion gap 01/05/2011 22:04-0500 7 7-15 mEq/L Final 16 GFR / 1.73 sq M.predicted 01/05/2011 22:04-0500 >60.0 >60 mL/min Final
--- OUTSIDE RECORDS SUMMARY | 2023-07-25 05:22 | External Medical Summary ---
Author Name Unknown Organization K09:[facility] e, [address], [place] [address] Support Name Relationship Address Phone TENNILLE CALIX PROV Unknown Unavaila ble Laboratory Report Ordering Provider Test Date Status TENNILLE CALIX R 01/29/2011 13:59-0400 Final Obs # Observation Date Value ABNL Reference Status Pe rforming Location 1 BUN 01/29/2011 15:22-0400 9 6-20 mg/dL Final 2 Creatinine 01/29/2011 15:22-0400 0.5 L 0.7-1.5 mg/dL Final 3 Sodium 01/29/2011 15:22-0400 136 135-146 mmol/L Final 4 Potassium 01/29/2011 15:22-0400 3.7 3.5-5.1 mmol/L Final 5 Cl 01/29/2011 15:22-0400 102 98-111 mmol/L Final 6 CO2 01/29/2011 15:22-0400 25 22-32 mmol/L Final 7 Glucose 01/29/2011 15:22-0400 93 70-120 mg/dL Final 8 Anion gap 01/29/2011 15:22-0400 9 7-15 mmol/L Final 9 Calcium 01/29/2011 15:220400 9.2 8.3-10.5 mg/dL Final 10 GFR / 1.73 sq M.predicted 01/29/2011 15:22-0400 >60.0 >60 mL/min Final
--- OUTSIDE RECORDS SUMMARY | 2023-07-25 05:22 | External Medical Summary ---
Author Name Unknown Organization [employer] [facility] tem Support Name Relationship Address Phone Unavailable PROV Unknown Unavailable Laboratory Report Ordering Provider Test Date Status 07/09/2010 12:31-0400 F Obs # Observation Date Value ABNL Reference Status Pe rforming Location 1 PT PPP Qn 07/09/2010 13:150 14.0 11.7-14.0 seconds Final 2 INR PPP Qn 07/09/2010 13:15 1.09 0.9-1.12 Final
--- OUTSIDE RECORDS SUMMARY | 2023-07-25 05:22 | External Medical Summary ---
Author Name Unknown Organization [employer] Support Name Relationship Address Phone LIANA ARECHIGA MD PROV Unknown Mildred vailable Laboratory Report Ordering Provider Test Date Status LIANA ARECHIGA MD 10/27/2010 14:44-0500 F Obs # Observation Date Value ABNL Reference Status Pe rforming Location 1 H pylori IgG Ser Ql EIA 10/28/2010 14:11-0500 A NEG Final POSITIVE
--- OUTSIDE RECORDS SUMMARY | 2023-07-25 05:22 | External Medical Summary ---
Author Name Unknown Organization K01:[facility], [address] [address] Support Name Relationship Address Phone TENNILLE CALIX PROV Unknown Unavaila ble Laboratory Report Ordering Provider Test Date Status TENNILLE CALIX 02/26/2011 09:56-0400 Final Obs # Observation Date Value ABNL Reference Status Pe rforming Location 1 Specimen site 02/26/2011 13:12-0400 Final PRESERVED STOOL E.COLI SHIGA TOXIN 1 AND E.COLI SHIGA TOXIN 2 NOT DETECTED. NO SALMONELLA, SHIGELLA OR CAMPYLOBACTER ISOLATED FINAL
--- OUTSIDE RECORDS SUMMARY | 2023-07-25 05:22 | External Medical Summary ---
Author Name Unknown Organization [employer] [facility] tem Support Name Relationship Address Phone Unavailable PROV Unknown Unavailable Laboratory Report Ordering Provider Test Date Status 07/29/2010 14:46-0400 F Obs # Observation Date Value ABNL Reference Status Pe rforming Location 1 BUN [facility] 07/29/2010 16:31-0400 13 6-20 mg/dL Final 2 Creat [facility] 07/29/2010 16:31-0400 0.6 L 0.7-1.5 mg/dL Final 3 Sodium [facility] 07/29/2010 16:31-0400 142 135-146 mmol/L Final 4 Potassium [facility] 07/29/2010 16:31-0400 3.3 L 3.5-5.1 mmol/L Final 5 Chloride [facility] 07/29/2010 16:31-0400 102 98-111 mmol/L Final 6 CO2 [facility] 07/29/2010 16:31-0400 27 22-32 mmol/L Final 7 Glucose [facility] 07/29/2010 16:31-0400 86 70-120 mg/dL Final 8 Albumin [facility] 07/29/2010 16:31-0400 4.2 3.8-5.0 g/dL Final 9 AST [facility] 07/29/2010 16:31-0400 11 10-35 U/L Final 10 ALP [facility] 07/29/2010 16:31-0400 80 25-125 U/L Final 11 Bilirub [facility] 07/29/2010 16:31-0400 0.2 L 0.3-1.3 mg/dL Final 12 Calcium [facility] 07/29/2010 16:31-0400 9.2 8.3-10.5 mg/dL Final 13 Prot [facility] 07/29/2010 16:31-0400 7.2 6.0-8.3 g/dL Final 14 ALT SerPl-cCnc 07/29/2010 16:31-0400 5 L 10-35 U/L Final 15 Anion Gap SerPl-sCnc 07/29/2010 16:31-0400 13 7-15 mEq/L Final 16 Pred GFR SerP MDRD-vRate 07/29/2010 16:31-0400 >60.0 >60 mL/min Final
--- OUTSIDE RECORDS SUMMARY | 2023-07-25 05:22 | External Medical Summary ---
Author Name Unknown Organization [employer] [facility] tem Support Name Relationship Address Phone TENNILLE CALIX PROV Unknown Unavaila ble Laboratory Report Ordering Provider Test Date Status TENNILLE CALIX Jose Alfredo 10/08/2010 12:37-0500 F Obs # Observation Date Value ABNL Reference Status Pe rforming Location 1 WBC # Bld 10/08/2010 13:050 6.43 4.00-10.80 K/uL Final 2 RBC # Bld 10/08/2010 13:050 4.42 3.85-5.15 M/uL Final 3 Hgb Bld-mCnc 10/08/2010 13:0500 13.9 12.0-14.5 g/dL Final 4 Hct Fr Bld 10/08/2010 13:050 42.4 36.0-44.5 % Final 5 MCV RBC Qn 10/08/2010 13:050 95.9 81.5-97.5 fL Final 6 MCH RBC Qn 10/08/2010 13:050 31.4 27.0-34.0 pg Final 7 MCHC RBC-mCnc 10/08/2010 13:050 32.8 32.0-36.0 g/dL Final 8 RDW RBC Qn 10/08/2010 13:050 14.7 11.5-15.5 % Final 9 Platelet # Bld 10/08/2010 13:050 353 150-400 K/uL Final 10 PMV Bld Qn 10/08/2010 13:0500 8.4 6.6-11.1 fL Final 11 DIFF TYPE 10/08/2010 13:050 Final AUTO
--- OUTSIDE RECORDS SUMMARY | 2023-07-25 05:22 | External Medical Summary ---
Author Name Unknown Organization [employer] [facility] tem Support Name Relationship Address Phone Unavailable PROV Unknown Unavailable Laboratory Report Ordering Provider Test Date Status 07/14/2010 12:02-0400 F Obs # Observation Date Value ABNL Reference Status Pe rforming Location 1 PT PPP Qn 07/14/2010 13:0 25.8 H 11.7-14.0 seconds Final 2 INR PPP Qn 07/14/2010 13:0 2.36 H 0.9-1.12 Final
--- OUTSIDE RECORDS SUMMARY | 2023-07-25 05:22 | External Medical Summary ---
Author Name Unknown Organization K01:[facility], [address] [facility] [address] Support Name Relationship Address Phone BALAJI MEDRANO DO PROV Unknown Unavailabl e Laboratory Report Ordering Provider Test Date Status BALAJI MEDRANO DO 01/31/2011 14:0400 Final Obs # Observation Date Value ABNL Reference Status Pe rforming Location 1 WBC 01/31/2011 20:24-0400 9.60 4.00-10.80 K/uL Final 2 RBC 01/31/2011 20:24-0400 4.69 3.85-5.15 M/uL Final 3 HGB 01/31/2011 20:24-0400 14.9 H 12.0-14.5 g/dL Final 4 HCT 01/31/2011 20:24-0400 45.2 H 36.0-44.5 % Final 5 MCV 01/31/2011 20:24-0400 96.4 81.5-97.5 fL Final 6 MCH 01/31/2011 20:24-0400 31.8 27.0-34.0 pg Final 7 MCHC 01/31/2011 20:24-0400 33.0 32.0-36.0 g/dL Final 8 RDW 01/31/2011 20:24-0400 13.8 11.5-15.5 % Final 9 PLT 01/31/2011 20:24-0400 390 140-400 K/uL Final 10 MPV 01/31/2011 20:24-0400 9.7 6.6-11.1 fL Final 11 Segs 01/31/2011 20:24-0400 58 40-75 % Final 12 Lymph 01/31/2011 20:24-0400 35 18-42 % Final 13 Ritchie 01/31/2011 20:24-0400 7 1-11 % Final 14 Eosinophils 01/31/2011 20:24-0400 0 0-6 % Final 15 Baso 01/31/2011 20:24-0400 0 0-2 % Final 16 Neutrophils, Segmented 01/31/2011 20:24-0400 5.41 1.8-7.7 K/uL Final 17 Abs. Lymphs 01/31/2011 20:24-0400 3.40 1.0-4.8 K/uL Final 18 Abs. Monos 01/31/2011 20:24-0400 0.70 0.0-1.1 K/uL Final 19 ABS. EOS 01/31/2011 20:24-0400 0.02 0.0-0.7 K/uL Final 20 Abs. Baso 01/31/2011 20:24-0400 0.04 0.0-0.2 K/uL Final
--- OUTSIDE RECORDS SUMMARY | 2023-07-25 05:22 | External Medical Summary ---
Author Name Unknown Organization K01:[facility], [address] [address] Support Name Relationship Address Phone TENNILLE CALIX PROV Unknown Unavaila ble Laboratory Report Ordering Provider Test Date Status TENNILLE CALIX 02/26/2011 09:56-0400 Final Obs # Observation Date Value ABNL Reference Status Pe rforming Location 1 Epinephrine, Urine 03/03/2011 14:06-0400 21.8 H 2-16 ug/g creat Final 2 Norepinephrine, Urine 03/03/2011 14:06-0400 47.1 7-65 ug/g creat Final 3 Dopamine / Creatinine Urine 03/03/2011 14:06-0400 252.4 40-390 ug/g creat Final 4 Catecholamines, Urine 03/03/2011 14:06-0400 321.3 ug/g creat Final 5 CREATININE,RAND URINE 02/26/2011 14:06-0400 139 mg/dL Final
--- OUTSIDE RECORDS SUMMARY | 2023-07-25 05:22 | External Medical Summary ---
Author Name Unknown Organization [employer] [facility] tem Support Name Relationship Address Phone BERNARDO OCONNELL RPH Unknown Unavailable Laboratory Report Ordering Provider Test Date Status BERNARDO OCONNELL RPH 11/13/2010 11:38-0500 F Obs # Observation Date Value ABNL Reference Status Pe rforming Location 1 PT PPP Qn 11/13/2010 21:36-0500 13.6 12.5-14.3 seconds Final 2 INR PPP Qn 11/13/2010 21:36-0500 1.05 0.94-1.12 Final
--- OUTSIDE RECORDS SUMMARY | 2023-07-25 05:22 | External Medical Summary ---
Author Name Unknown Organization [employer] Support Name Relationship Address Phone [facility] [address], PROV Unknown Unavail able Laboratory Report Ordering Provider Test Date Status [facility] [address], 02/25/2011 11:03-0400 Final Obs # Observation Date Value ABNL Reference Status Pe rforming Location 1 FINGERSTICK INR 1 11:02-040 0 1.1 INR Final 2 THERAPEUTIC RANGE 1 11:02-040 0 Final 3 THERAPEUTIC RANGE 1 11:02-040 0 Therapeutic ranges for non-operative patients: Final 4 THERAPEUTIC RANGE 1 11:02-040 0 Prophylaxsis/leslie tment of DVT: (Range:2.0-3.0) Final 5 THERAPEUTIC RANGE 1 11:02-040 0 Treatment of pulmonary embolism:(Range:2 .0-3.0) Final 6 THERAPEUTIC RANGE 1 11:02-040 0 Prevention of systemic embolism from: Final 7 THERAPEUTIC RANGE 1 11:02-040 0 -tissue heart valves Final 8 THERAPEUTIC RANGE 1 11:02-040 0 -acute myocardial infarction Final 9 THERAPEUTIC RANGE 1 11:02-040 0 -valvular heart disease Final 10 THERAPEUTIC RANGE 1 11:02-040 0 -atrial fibrillation Final 11 THERAPEUTIC RANGE 1 11:02-040 0 (Range: 2.0-3.0) Final 12 THERAPEUTIC RANGE 1 11:02-040 0 Mechanical prosthetic valves: (Range: 2.5-3.5) Final
--- OUTSIDE RECORDS SUMMARY | 2023-07-25 05:22 | External Medical Summary ---
Author Name Unknown Organization [employer] [facility] tem Support Name Relationship Address Phone TENNILLE CALIX PROV Unknown Unavaila ble Laboratory Report Ordering Provider Test Date Status TENNILLE CALIX 10/13/2010 10:59-0500 F Obs # Observation Date Value ABNL Reference Status Pe rforming Location 1 Potassium SerPl-sCnc 10/13/2010 12:17-0500 3.9 3.5-5.1 mmol/L Final
--- OUTSIDE RECORDS SUMMARY | 2023-07-25 05:22 | External Medical Summary ---
Author Name Unknown Organization K09:[facility], [address], [place] [address] Support Name Relationship Address Phone TENNILLE CALIX PROV Unknown Unavaila ble Laboratory Report Ordering Provider Test Date Status TENNILLE CALIX 02/25/2011 11:49-0400 Final Obs # Observation Date Value ABNL Reference Status Pe rforming Location 1 BUN 02/25/2011 12:36-0400 11 6-20 mg/dL Final 2 Creatinine 02/25/2011 12:36-0400 0.6 L 0.7-1.5 mg/dL Final 3 Sodium 02/25/2011 12:36-0400 138 135-146 mmol/L Final 4 Potassium 02/25/2011 12:36-0400 3.2 L 3.5-5.1 mmol/L Final 5 Cl 02/25/2011 12:36-0400 101 98-111 mmol/L Final 6 CO2 02/25/2011 12:36-0400 29 22-32 mmol/L Final 7 Glucose 02/25/2011 12:36-0400 85 70-120 mg/dL Final 8 Albumin, Serum 02/25/2011 12:36-0400 4.1 3.8-5.0 g/dL Final 9 AST (Aspartate aminotransferase) 02/25/2011 12:36-0400 13 10-35 U/L Final 10 Alk Phos 02/25/2011 12:36-0400 77 25-125 U/L Final 11 Bilirubin, Total 02/25/2011 12:36-0400 0.3 0.3-1.3 mg/dL Final 12 Calcium 02/25/2011 12:36-0400 9.1 8.3-10.5 mg/dL Final 13 Protein 02/25/2011 12:36-0400 6.8 6.0-8.3 g/dL Final 14 ALT (Alanine aminotransferase) 02/25/2011 12:36-0400 7 L 10-35 U/L Final 15 Anion gap 02/25/2011 12:36-0400 8 7-15 mmol/L Final 16 GFR / 1.73 sq M.predicted 02/25/2011 12:36-0400 >60.0 >60 mL/min Final
--- OUTSIDE RECORDS SUMMARY | 2023-07-25 05:22 | External Medical Summary ---
Author Name Unknown Organization [employer] [facility] tem Support Name Relationship Address Phone Unavailable PROV Unknown Unavailable Laboratory Report Ordering Provider Test Date Status 07/29/2010 14:46-0400 F Obs # Observation Date Value ABNL Reference Status Pe rforming Location 1 ESR Bld Qn 07/29/2010 15:39-0400 11 0-20 mm/hour Final
--- OUTSIDE RECORDS SUMMARY | 2023-07-25 05:22 | External Medical Summary ---
Author Name Unknown Organization [employer] Support Name Relationship Address Phone [facility] [address], PROV Unknown Unavail able Laboratory Report Ordering Provider Test Date Status [facility] [address], 01/05/2011 15:56-0500 Final Obs # Observation Date Value ABNL Reference Status Pe rforming Location 1 FINGERSTICK INR 1 15:56-050 0 1.3 INR Final 2 THERAPEUTIC RANGE 1 15:56-050 0 Final 3 THERAPEUTIC RANGE 1 15:56-050 0 Therapeutic ranges for non-operative patients: Final 4 THERAPEUTIC RANGE 1 15:56-050 0 Prophylaxsis/leslie tment of DVT: (Range:2.0-3.0) Final 5 THERAPEUTIC RANGE 1 15:56-050 0 Treatment of pulmonary embolism:(Range:2 .0-3.0) Final 6 THERAPEUTIC RANGE 1 15:56-050 0 Prevention of systemic embolism from: Final 7 THERAPEUTIC RANGE 1 15:56-050 0 -tissue heart valves Final 8 THERAPEUTIC RANGE 1 15:56-050 0 -acute myocardial infarction Final 9 THERAPEUTIC RANGE 1 15:56-050 0 -valvular heart disease Final 10 THERAPEUTIC RANGE 1 15:56-050 0 -atrial fibrillation Final 11 THERAPEUTIC RANGE 1 15:56-050 0 (Range: 2.0-3.0) Final 12 THERAPEUTIC RANGE 1 15:56-050 0 Mechanical prosthetic valves: (Range: 2.5-3.5) Final
--- OUTSIDE RECORDS SUMMARY | 2023-07-25 05:22 | External Medical Summary ---
Author Name Unknown Organization K01:[facility], [address] [address] Support Name Relationship Address Phone BERNARDO OCONNELL RPH [facility] Unknown Unavailable Laboratory Report Ordering Provider Test Date Status BERNARDO OCONNELL RPH 12/24/2010 15:17-0500 Final Obs # Observation Date Value ABNL Reference Status Pe rforming Location 1 PT 12/24/2010 21:59-0500 13.4 12.5-14.3 seconds Final 2 INR 12/24/2010 21:59-0500 1.03 0.94-1.12 Final
--- OUTSIDE RECORDS SUMMARY | 2023-07-25 05:22 | External Medical Summary ---
Author Name Unknown Organization K01:[facility], [address] [address] Support Name Relationship Address Phone BALAJI MEDRANO DO PROV Unknown Unavailabl e Laboratory Report Ordering Provider Test Date Status BALAJI MEDRANO DO 01/31/2011 14:25-0400 Final Obs # Observation Date Value ABNL Reference Status Pe rforming Location 1 Color, UA 1 21:05-040 0 YELLOW YEL Final 2 Clarity, UA 1 21:05-040 0 CLEAR CLEAR Final 3 Glucose, UA 1 21:05-040 0 NEGATIVE NEG mg/dL Final 4 Bilirubin, UA 1 21:05-040 0 NEGATIVE NEG Final 5 Ketones, UA 1 21:05-040 0 NEGATIVE NEG mg/dL Final 6 Specific gravity, UA 1 21:05-040 0 1.007 1.003-1.030 Final 7 Hemoglobin, qual. UA 1 21:05-040 0 NEGATIVE NEG Final 8 pH, UA 1 21:05-040 0 6.0 5-6 units Final 9 Protein, UA 1 21:05-040 0 NEGATIVE NEG mg/dL Final 10 Urobilinogen, UA 1 21:05-040 0 NORMAL NORM EU/dL Final 11 Nitrite, UA 1 21:05-040 0 NEGATIVE NEG Final 12 Leukocyte esterase, UA 1 21:05-040 0 NEGATIVE NEG Final 13 Comment, UA 21:05-040 0 SCREEN NEGATIVE - MICROSCOPIC NOT DONE Final
--- OUTSIDE RECORDS SUMMARY | 2023-07-25 05:22 | External Medical Summary ---
Author Name Unknown Organization [employer] tem Support Name Relationship Address Phone Unavailable PROV Unknown Unavailable Laboratory Report Ordering Provider Test Date Status 08/06/2010 09:48-0400 F Obs # Observation Date Value ABNL Reference Status Pe rforming Location 1 BUN [facility] 08/06/2010 10:48-0400 13 6-20 mg/dL Final 2 Creat [facility] 08/06/2010 10:48-0400 0.7 0.7-1.5 mg/dL Final 3 Sodium [facility] 08/06/2010 10:48-0400 139 135-146 mmol/L Final 4 Potassium [facility] 08/06/2010 10:48-0400 3.7 3.5-5.1 mmol/L Final 5 Chloride [facility] 08/06/2010 10:48-0400 101 98-111 mmol/L Final 6 CO2 [facility] 08/06/2010 10:48-0400 28 22-32 mmol/L Final 7 Glucose [facility] 08/06/2010 10:48-0400 78 70-120 mg/dL Final 8 Anion Gap [facility] 08/06/2010 10:48-0400 10 7-15 mEq/L Final 9 Calcium [facility] 08/06/2010 10:48-0400 9.6 8.3-10.5 mg/dL Final 10 Pred GFR SerPl MDRD-vRate 08/06/2010 10:48-0400 >60.0 >60 mL/min Final
== END 2023-07-23 17:18 | disposition home health service (06) | DRG 190 ==
LOC: ED 13:20 → SUATTDRO 16:53 → 2W 16:53

== ENCOUNTER 2023-08-12 16:20 | Inpatient (IN) ==
--- NOTE | 2023-08-12 17:04 | Emergency Department Note ---
Impression & Plan Acute gastrointestinal bleeding, Chest pain, Anticoagulant long-term use, Dizziness, Headache, Elevated lactic acid level, Elevated INR ED Provider Note Provider: Christopher Schmid MD DATE OF SERVICE: 08/12/2023 CHIEF COMPLAINT: Weakness, cough, chest pain, head pain HISTORY OF PRESENT ILLNESS: Patient is a 63-year-old female history of IBS, von Willebrand's disease, paroxysmal atrial fibrillation maintained on Coumadin, chronic diastolic CHF, COPD, chronic chronic uses, recurrent UTI presenting here today via ambulance from her home. Patient evidently lives alone and not been able to care for herself well for some time. Recently hospitalized. Is understanding possible hospice/palliative care. Does have some home health and additional help from family at times. States for the last 3 to 4 days she has been experiencing head pain and experiencing some chest discomfort. Feeling bit dizzy. Feel that her breathing but short of breath and EMS reported that the patient was into the 80s on her normal 4 L of oxygen. They gave her a DuoNeb and brought her here for further evaluation. Patient reports some mild abdominal discomfort and some darker colored stools with decreased intake. Has been having blood draws as her INR has been elevated but today she reports they jazmín it and it came back at 4.2 which is improving. Fell several weeks ago but denies falls last several days. Has some resolving bruising to the right foot. Home health reported that she seemed a bit pale. Patient does states that her tongue feels a bit off as well as her speech. History of stroke reported in the past. PAST MEDICAL HISTORY: As noted above MEDICATIONS: Reviewed home medications includes warfarin SOCIAL HISTORY: Lives alone at home by herself PHYSICAL EXAM: GENERAL: alert and oriented in no acute distress on stretcher Head: normocephalic and atraumatic EYES: No injection, discharge or icterus. PERRL NECK: Trachea midline. Supple without midline tenderness ENT: Mucous membranes pink and moist. LUNGS: Airway patent. No retractions. Breath sounds clear with good air entry bilaterally. HEART: Regular rate and rhythm. No chest wall tenderness ABDOMEN: Soft obese, with minimal diffuse abdominal tenderness. No guarding. Rectal with nurse engine room helper: No evidence of active blood but dark black and Hemoccult positive stool. SKIN: Acyanotic, warm, dry, without rashes EXTREMITIES: With 1-2+ edema of the lower extremities. There are some resolving contusion prickly around the right foot without significant point tenderness. Few mild scattered bruises on the upper extremities from recent blood draws. NEUROLOGICAL: No focal deficits. No aphasia. No facial droop noted. EK bpm sinus tachycardia. No PVC. No acute ST segment elevation with some nonspecific lateral T wave flattening. Baseline artifact. QTc 488. CONTINUOUS CARDIAC MONITORING: was ordered and showed a heart rate of 90s-100s bpm in normal sinus rhythm to sinus tachycardia GCS 15. Patient's laboratory studies and imaging reviewed. Differential includes Infection, gastrointestinal issues, dehydration, metabolic abnormality, hypo/hyperglycemia, electrolyte disturbance, anemia, hypoxia, ca rdiac sources, intracerebral event, toxicologic, neurologic, as well as other pathologies. IMPRESSION/MEDICAL DECISION MAKING: Elevated INR makes DVT or PE unlikely. With her weakness as well as reported increased paleness and elevated INR recently a concern with her pain complaints are possibly occult bleeding. I-STAT obtained and hemoglobin on that is undetectably low. Sent for emergent CTs. Blood pressure somewhat low initially. Type and screen was sent. Want to be careful in the setting of this patient with a tenuous respiratory status and underlying CHF to prevent fluid overload does report some darker colored stools. EKG obtained without evidence of STEMI but again does report some abdominal discomfort. Denies recent significant trauma in the last week states 2 weeks ago she fell and has some resolving bruising to the right foot. No obvious deformity lower suspicion for fracture here. Blood returns with hemoglobin 3.9. Emergently consented for blood transfusion. Will order 1 unit of uncrossed as we wait for type specific as she hypotensive. Lactate of 5.9. Hemoccult positive and likely source of bleeding. CT head without evidence of acute intracranial bleed at this time. Sequela of the elevated INR. Discussed pharmacy for [facility] as well as given the chart history of von Willebrand's disease DDAVP which was ordered. Protonix bolus and drip ordered. Vitamin K ordered. Extensive chart review in [facility] shows that she was evaluated by hematology in 2003 with testing at that time reassuring. Discussed with our oncologist wood patternmaker apprentice via phone and do not feel additional factor is indicated given the normal testing at that time but did receive DDAVP here. Troponin not elevated. No signs of significant renal dysfunction at this time. Given some IV Tylenol for some of her pain complaints but given her somewhat tenuous pressures we will avoid significant aquatics if possible. Require admission and further care here. Doubt this is significant upper GI bleed believe more likely to be lower. BUN not significantly elevated and given the elevated INR I think this is lower GI bleed. Reviewed prior EGD reports from 2019 without findings of significant varices or gastric abnormality at that time. UA is questionable for infection given her history will I believe this is likely GI bleed and hemorrhagic shock will cover with antibiotics. Does have a history of UTI. Reviewed recent cardiology note without severe CHF/EF depression noted and as such we will not giving additional IV fluids will again receive fluid resuscitation with blood transfusions. DIAGNOSIS: Long-term anticoagulation, elevated INR, GI bleed, hemorrhagic shock, acute blood loss anemia DISPOSITION: Hospitalist will evaluate Critical Care I have personally spent 75 minutes of critical care time in the direct management of this patient. This includes bedside care, interpretation of diagnostic studies, and testing, discussion with consultants, patient, and other required patient management activities. These 75 minutes is in excess of all separately billable procedures. Past Med/Surg History Medical History Anemia Anticoagulated on Coumadin Anxiety and depression Chronic pain on daily narcotics (tramadol PRN) Chronic respiratory failure with hypoxia Congestive heart failure follows with [facility] cardiology (Patricia banks) COPD (chronic obstructive pulmonary disease) Degenerative disc disease Dementia "very early stages" Alert and oriented x3. granddaughter is the caregiver of patient. Diarrhea started about 1 year ago -- will come and go. History of COVID-19 Spring 2020. treated at [facility] inpatient. symptoms included: sob, cough, desaturation 84-87%, congestion, headache, fatigue. no ventilator at the time. no current problems. History of stroke "embolic stroke, underlying PFO" total of 9 strokes -> last stroke ~6+years ago. damaged urinary nerve and mild left sided weakness. Hypertension Morbid obesity On home oxygen therapy continuous 3lpm via n/c. (will increase to 4lpm via n/c if needed) Osteoarthritis Paroxysmal A-fib feels her heart race at times. Peripheral neuropathy Post traumatic stress disorder Sleep apnea mild RUFINA (dx in ) no machine currently -- pt to have another sleep study february 2023. Submucosal lesion of stomach Noted on EGD 11/06/20 Urinary incontinence Surgical History H/O colonoscopy H/O esophagogastroduodenoscopy History of cardiac cath [facility] [place] - "long time ago" -- pt unsure of details. History of cataract surgery bilateral Hx of lumpectomy left breast (benign) Status post cholecystectomy Status post hernia repair Right inguinal Status post hysterectomy MERT with BSO Family History Grandmother (Maternal) FHx: bladder cancer Father FHx: stroke Other Heart disease No family history of adverse response to anesthesia Social History Smoking Status: Former smoker Tobacco Type: Cigarettes Second Hand Exposure: No; Do You Dip or Chew Tobacco: No; Hx Alcohol Use: No Hx Substance Use: No Preferred Language: Korean Communication Ability: Effective Pc Analyst Required: No Beliefs That Will Affect Care: None marital status: / Current Living Situation: Alone Current Living Situation Comment: Granddaughter is the caregiver. Comes M-F 8am-4pm. Feels Safe at Home: Yes Assistive Devices: Hospital Bed, Nebulizer, Oxygen - Continuous, Scooter/Electric Scooter, Walker and Wheelchair Allergies Allergies Allergy/AdvReac Type Severity Reaction Status Date / Time aspirin Allergy Unknown TAKES Verified 08/12/23 19:00 COUMADIN salicylates AdvReac Unknown ?DUE TO Verified 08/12/23 19:00 COUMADIN? Home Meds Home Medications Medication Instructions Recorded Confirmed albuterol sulfate 5 mg/mL(0.5 %) 2.5 mg inhalation DIRECTED PRN 08/20/22 08/12/23 solution for nebulization Shortness Of Breath Or Wheezing albuterol sulfate 90 mcg/actuation 2 puff inhalation QID PRN sob 08/20/22 08/12/23 aerosol inhaler baclofen 10 mg tablet 10 mg PO TID PRN Muscle Pain 08/20/22 08/12/23 buspirone 10 mg tablet 20 mg PO AMHS 08/20/22 08/12/23 cholecalciferol (vitamin D3) 25 25 mcg PO QAM 08/20/22 08/12/23 mcg (1,000 unit) capsule (Vitamin D3) isosorbide mononitrate 30 mg 30 mg PO QAM 08/20/22 08/12/23 tablet,extended release 24 hr lorazepam 0.5 mg tablet 0.5 mg PO Q8 PRN Anxiety 08/20/22 08/12/23 tramadol 100 mg tablet 100 mg PO Q8 PRN .MOD-SEVERE PAIN 08/20/22 08/12/23 warfarin 5 mg tablet 2.5 mg PO MOWEFR@1600 08/20/22 08/12/23 ferrous sulfate 325 mg (65 mg 325 mg PO QAM 01/12/23 08/12/23 iron) tablet acetaminophen 300 mg-codeine 30 mg 1 tab PO Q6 PRN Moderate Pain 07/15/23 08/12/23 tablet (Scale Score 5-6) fluticasone propionate 115 2 puff inhalation AMHS 07/15/23 08/12/23 mcg-salmeterol 21 mcg/actuation HFA inhaler (Advair HFA) metoprolol succinate 25 mg 25 mg PO QA 07/15/23 08/12/23 tablet,extended release 24 hr omeprazole 20 mg capsule,delayed 20 mg PO AMHS 07/15/23 08/12/23 release potassium chloride 10 mEq 10 meq PO [facility] 07/15/23 08/12/23 capsule,extended release solifenacin 10 mg tablet 10 mg PO QA 07/15/23 08/12/23 warfarin 5 mg tablet 5 mg PO SUTUTHSA 07/15/23 08/12/23 Previous Rx's Medication Instructions Recorded furosemide 20 mg tablet (Lasix) 40 mg PO BID #30 tabs 07/23/23 miconazole nitrate 2 % topical 1 applic EXT BID #28 grams 07/23/23 cream montelukast 10 mg tablet 10 mg PO HS #30 tabs 07/23/23 umeclidinium 62.5 mcg/actuation 1 inh inhalation DAILY #30 ea 07/23/23 blister powder for inhalation (Incruse Ellipta) Results & Data (ED) Vital Signs Vital Signs - 24 hr 08/12/23 16:29 08/12/23 16:50 08/12/23 17:17 Temperature 36.4 C L Temperature Source Oral Pulse Rate 107 H 106 H Pulse Rate [Apical] 103 H Pulse Rhythm Pulse Strength Respiratory Rate 22 28 H Blood Pressure 87/62 L Blood Pressure [Left Arm] 71/25 L Blood Pressure Mean 70 Blood Pressure Mean [Left Arm] 40 Blood Pressure Position Pulse Oximetry 96 88 L Oxygen Delivery Method Nasal Cannula Nasal Cannula Oxygen Flow Rate 4 5 Sepsis Recent Fever Within 48 Hours No Sepsis New/Unexplained Change in Mental Status No Sepsis Action Taken by Nursing Physician Notified 08/12/23 17:17 08/12/23 17:45 08/12/23 18:01 Temperature 36.7 C 36.8 C Temperature Source Oral Oral Pulse Rate 101 H 101 H Pulse Rate [Apical] Pulse Rhythm Regular Pulse Strength Normal Respiratory Rate 24 24 Blood Pressure 92/53 L 86/51 L Blood Pressure [Left Arm] Blood Pressure Mean 66 62 Blood Pressure Mean [Left Arm] Blood Pressure Position Lying Pulse Oximetry 100 96 Oxygen Delivery Method Nasal Cannula Oxygen Flow Rate 6 6 Sepsis Recent Fever Within 48 Hours Sepsis New/Unexplained Change in Mental Status Sepsis Action Taken by Nursing 08/12/23 18:16 08/12/23 18:46 Temperature 36.8 C 37.0 C Temperature Source Oral Oral Pulse Rate 98 H 93 H Pulse Rate [Apical] Pulse Rhythm Pulse Strength Respiratory Rate 22 20 Blood Pressure 91/52 L 93/54 L Blood Pressure [Left Arm] Blood Pressure Mean 65 67 Blood Pressure Mean [Left Arm] Blood Pressure Position Pulse Oximetry 100 100 Oxygen Delivery Method Oxygen Flow Rate 6 Sepsis Recent Fever Within 48 Hours Sepsis New/Unexplained Change in Mental Status Sepsis Action Taken by Nursing Laboratory Data 08/12/23 16:38 08/12/23 16:38 Lab Results 08/12/23 08/12/23 08/12/23 Range/Units 16:38 16:38 16:49 WBC 11.99 H (4.8-10.8) K/ul RBC 1.48 L (4.20-5.40) M/uL Hgb 3.9 L* (12.0-16.0) g/dl Hct 13.8 L* (37.0-47.0) % MCV 93.2 (80.0-100.0) fL MCH 26.4 (25.0-34.0) pg MCHC 28.3 L (32.0-36.0) g/dL RDW Std Deviation 76.6 H (36.4-46.3) fL RDW Coeff of Ursula 24.1 H (11.5-14.5) % Plt Count 673 H (130-400) K/uL MPV 10.0 (9.4-12.4) fL Immature Gran % (Auto) 3.3 % Neut % (Auto) 71.2 % Lymph % (Auto) 17.3 % [place] % (Auto) 7.7 % Eos % (Auto) 0.3 % Baso % (Auto) 0.2 % Neut # (Auto) 8.56 H (1.40-6.50) K/uL Lymph # (Auto) 2.07 (1.20-3.40) K/uL [place] # (Auto) 0.92 H (0.11-0.59) K/uL Eos # (Auto) 0.03 (0.00-0.50) K/uL Baso # (Auto) 0.02 (0.00-0.20) K/uL Immature Gran # (Auto) 0.39 H (0.01-0.20) K/uL Absolute Nucleated RBC 2.10 H (0.00-0.12) K/uL Nucleated RBC % (auto) 17.5 % Polychromasia 2+ Hypochromasia Present Anisocytosis Present Target Cells 1+ Stomatocytes 2+ PT (9.0-12.0) Seconds INR (0.9-1.1) Sodium 136 (136-145) mmol/L Potassium 3.0 L (3.5-5.1) mmol/L Chloride 93 L (98-107) mmol/L Carbon Dioxide 30 (21-32) mmol/L Anion Gap 13 H (3-11) BUN 24 H (6-23) mg/dl Creatinine 0.98 (0.6-1.2) mg/dl Est Cr Clr Drug Dosing 79.5 ml/min Est GFR ( Amer) 71.2 ml/min Est GFR (Non-Af Amer) 61.4 ml/min BUN/Creatinine Ratio 24.5 H (10-20) Glucose 220 H (70-99(Fasting)) mg/dl Lactate (0.4-2.0) mmol/L Calcium 8.0 L (8.6-10.3) mg/dl Magnesium 1.9 (1.7-2.4) mg/dl Total Bilirubin 0.4 (0.2-1.0) mg/dl AST 25 (13-39) U/L ALT 18 (7-52) U/L Alkaline Phosphatase 86 (34-104) U/L Total Creatine Kinase 311 H (26-192) U/L Troponin I High Sens 6.6 (0-14) pg/ml Total Protein 5.8 L (6.0-8.3) gm/dl Albumin 3.3 L (3.4-5.0) gm/dl Globulin 2.5 (2.5-4.0) gm/dl Albumin/Globulin Ratio 1.3 (0.9-2) TSH 3.065 (0.300-4.500) uIu/ml Urine Color Urine Appearance (Clear) Urine pH (4.5-7.5) Ur Specific [place] (1.000-1.030) Urine Protein (Negative) Urine Glucose (UA) (Negative) Urine Ketones (Negative) Urine Blood (Negative) Urine Nitrite (Negative) Urine Bilirubin (Negative) Urine Urobilinogen (Negative) Ur Leukocyte Esterase (Negative) Urine WBC (Auto) (0-5) /hpf Urine RBC (Auto) (0-4) /hpf U Hyaline Cast (Auto) (0-5) /lpf U Epithel Cells (Auto) (0-5) /lpf Urine Bacteria (Auto) (Negative) POC Stool Occult Blood (Negative) SARS-CoV-2, RNA, NAAT (NEGATIVE) Blood Type O Negative Antibody Screen NEGATIVE Crossmatch See Detail 08/12/23 08/12/23 08/12/23 Range/Units 16:49 16:55 17:30 WBC (4.8-10.8) K/ul RBC (4.20-5.40) M/uL Hgb (12.0-16.0) g/dl Hct (37.0-47.0) % MCV (80.0-100.0) fL MCH (25.0-34.0) pg MCHC (32.0-36.0) g/dL RDW Std Deviation (36.4-46.3) fL RDW Coeff of Ursula (11.5-14.5) % Plt Count (130-400) K/uL MPV (9.4-12.4) fL Immature Gran % (Auto) % Neut % (Auto) % Lymph % (Auto) % [place] % (Auto) % Eos % (Auto) % Baso % (Auto) % Neut # (Auto) (1.40-6.50) K/uL Lymph # (Auto) (1.20-3.40) K/uL [place] # (Auto) (0.11-0.59) K/uL Eos # (Auto) (0.00-0.50) K/uL Baso # (Auto) (0.00-0.20) K/uL Immature Gran # (Auto) (0.01-0.20) K/uL Absolute Nucleated RBC (0.00-0.12) K/uL Nucleated RBC % (auto) % Polychromasia Hypochromasia Anisocytosis Target Cells Stomatocytes PT 22.5 H (9.0-12.0) Seconds INR 2.2 H (0.9-1.1) Sodium (136-145) mmol/L Potassium (3.5-5.1) mmol/L Chloride (98-107) mmol/L Carbon Dioxide (21-32) mmol/L Anion Gap (3-11) BUN (6-23) mg/dl Creatinine (0.6-1.2) mg/dl Est Cr Clr Drug Dosing ml/min Est GFR ( Amer) ml/min Est GFR (Non-Af Amer) ml/min BUN/Creatinine Ratio (10-20) Glucose (70-99(Fasting)) mg/dl Lactate 5.9 H* (0.4-2.0) mmol/L Calcium (8.6-10.3) mg/dl Magnesium (1.7-2.4) mg/dl Total Bilirubin (0.2-1.0) mg/dl AST (13-39) U/L ALT (7-52) U/L Alkaline Phosphatase (34-104) U/L Total Creatine Kinase (26-192) U/L Troponin I High Sens (0-14) pg/ml Total Protein (6.0-8.3) gm/dl Albumin (3.4-5.0) gm/dl Globulin (2.5-4.0) gm/dl Albumin/Globulin Ratio (0.9-2) TSH (0.300-4.500) uIu/ml Urine Color Urine Appearance (Clear) Urine pH (4.5-7.5) Ur Specific [place] (1.000-1.030) Urine Protein (Negative) Urine Glucose (UA) (Negative) Urine Ketones (Negative) Urine Blood (Negative) Urine Nitrite (Negative) Urine Bilirubin (Negative) Urine Urobilinogen (Negative) Ur Leukocyte Esterase (Negative) Urine WBC (Auto) (0-5) /hpf Urine RBC (Auto) (0-4) /hpf U Hyaline Cast (Auto) (0-5) /lpf U Epithel Cells (Auto) (0-5) /lpf Urine Bacteria (Auto) (Negative) POC Stool Occult Blood (Negative) SARS-CoV-2, RNA, NAAT NEGATIVE (NEGATIVE) Blood Type Antibody Screen Crossmatch 08/12/23 08/12/23 Range/Units 17:30 17:50 WBC (4.8-10.8) K/ul RBC (4.20-5.40) M/uL Hgb (12.0-16.0) g/dl Hct (37.0-47.0) % MCV (80.0-100.0) fL MCH (25.0-34.0) pg MCHC (32.0-36.0) g/dL RDW Std Deviation (36.4-46.3) fL RDW Coeff of Ursula (11.5-14.5) % Plt Count (130-400) K/uL MPV (9.4-12.4) fL Immature Gran % (Auto) % Neut % (Auto) % Lymph % (Auto) % [place] % (Auto) % Eos % (Auto) % Baso % (Auto) % Neut # (Auto) (1.40-6.50) K/uL Lymph # (Auto) (1.20-3.40) K/uL [place] # (Auto) (0.11-0.59) K/uL Eos # (Auto) (0.00-0.50) K/uL Baso # (Auto) (0.00-0.20) K/uL Immature Gran # (Auto) (0.01-0.20) K/uL Absolute Nucleated RBC (0.00-0.12) K/uL Nucleated RBC % (auto) % Polychromasia Hypochromasia Anisocytosis Target Cells Stomatocytes PT (9.0-12.0) Seconds INR (0.9-1.1) Sodium (136-145) mmol/L Potassium (3.5-5.1) mmol/L Chloride (98-107) mmol/L Carbon Dioxide (21-32) mmol/L Anion Gap (3-11) BUN (6-23) mg/dl Creatinine (0.6-1.2) mg/dl Est Cr Clr Drug Dosing ml/min Est GFR ( Amer) ml/min Est GFR (Non-Af Amer) ml/min BUN/Creatinine Ratio (10-20) Glucose (70-99(Fasting)) mg/dl Lactate (0.4-2.0) mmol/L Calcium (8.6-10.3) mg/dl Magnesium (1.7-2.4) mg/dl Total Bilirubin (0.2-1.0) mg/dl AST (13-39) U/L ALT (7-52) U/L Alkaline Phosphatase (34-104) U/L Total Creatine Kinase (26-192) U/L Troponin I High Sens (0-14) pg/ml Total Protein (6.0-8.3) gm/dl Albumin (3.4-5.0) gm/dl Globulin (2.5-4.0) gm/dl Albumin/Globulin Ratio (0.9-2) TSH (0.300-4.500) uIu/ml Urine Color Yellow Urine Appearance Clear (Clear) Urine pH 5.5 (4.5-7.5) Ur Specific [place] 1.021 (1.000-1.030) Urine Protein Negative (Negative) Urine Glucose (UA) Negative (Negative) Urine Ketones Negative (Negative) Urine Blood Negative (Negative) Urine Nitrite Positive A (Negative) Urine Bilirubin Negative (Negative) Urine Urobilinogen Negative (Negative) Ur Leukocyte Esterase 1+ H (Negative) Urine WBC (Auto) 10-30 H (0-5) /hpf Urine RBC (Auto) 0-4 (0-4) /hpf U Hyaline Cast (Auto) 1-5 (0-5) /lpf U Epithel Cells (Auto) 10-20 H (0-5) /lpf Urine Bacteria (Auto) 2+ H (Negative) POC Stool Occult Blood Positive A (Negative) SARS-CoV-2, RNA, NAAT (NEGATIVE) Blood Type Antibody Screen Crossmatch Administered Medications Buspirone HCl (Buspirone 5 Mg Tab) 20 mg PO AMHS MARY Stop: 09/11/23 20:59 Last Admin: 08/12/23 21:19 Dose: 20 mg Documented By: CF Fluticasone/Vilanterol (Fluticasone/Vilanterol 100/25mcg 14 Puffs/Inhaler) 1 puffs INH DAILY MARY Stop: 09/11/23 20:29 Last Admin: 08/12/23 21:27 Dose: 1 puffs Documented By: CF Pantoprazole Sodium 40 mg/ (Dextrose) 100 mls @ 20 mls/hr IV Q5H MARY Stop: 09/11/23 17:44 Last Admin: 08/12/23 23:25 Dose: 8 mg/hr, 20 mls/hr Documented By: Infusion: 08/12/23 23:25 Dose: 8 mg/hr, 20 mls/hr Documented By: Admin: 08/12/23 18:34 Dose: 8 mg/hr, 20 mls/hr Documented By: COLLEEN Potassium Chloride (K Harrison / Wtr) 10 meq in 100 mls @ 100 mls/hr IV Q1H MARY Stop: 08/13/23 01:59 Last Admin: 08/12/23 22:52 Dose: 100 mls/hr Documented By: JANNETTE Mirtazapine (Mirtazapine Tab 15 Mg Tab) 30 mg PO HS MARY Stop: 09/11/23 20:59 Last Admin: 08/12/23 21:18 Dose: 30 mg Documented By: JANNETTE Miscellaneous (Icu Protocol For Hyperglycemia) 1 each N/A ACHS MARY Stop: 08/14/23 20:59 Last Admin: 08/12/23 21:29 Dose: Not Given Documented By: CF Montelukast Sodium (Montelukast Sodium 10 Mg Tablet) 10 mg PO HS MARY Stop: 09/11/23 20:59 Last Admin: 08/12/23 21:17 Dose: 10 mg Documented By: CF Discontinued Medications Pantoprazole Sodium 80 mg/ (Dextrose) 120 mls @ 400 mls/hr IV NOW ONE Stop: 08/12/23 17:42 Last Infusion: 08/12/23 18:30 Dose: 0 mls/hr Documented By: Admin: 08/12/23 18:11 Dose: 400 mls/hr Documented By: COLLEEN Desmopressin Acetate 20 mcg/ (Sodium Chloride) 55 mls @ 100 mls/hr IV NOW STA Stop: 08/12/23 18:00 Last Infusion: 08/12/23 18:59 Dose: 0 mls/hr Documented By: Admin: 08/12/23 18:25 Dose: 100 mls/hr Documented By: COLLEEN Phytonadione 10 mg/ Dextrose 51 mls @ 102 mls/hr IV ONE ONE Stop: 08/12/23 18:04 Last Infusion: 08/12/23 18:26 Dose: 0 mls/hr Documented By: Admin: 08/12/23 17:46 Dose: 102 mls/hr Documented By: COLLEEN Prothrombin Complex Concent ( (Human) 2,500 units/ Syringe) 100 mls @ 10 mls /min IV NOW ONE; Protocol Stop: 08/12/23 17:54 Last Admin: 08/12/23 17:53 Dose: 10 mls/min Documented By: COLLEEN Acetaminophen (Ofirmev) 1,000 mg in 100 mls @ 400 mls/hr IV NOW STA Stop: 08/12/23 17:53 Last Infusion: 08/12/23 18:58 Dose: 0 mls/hr Documented By: Admin: 08/12/23 18:25 Dose: 400 mls/hr Documented By: COLLEEN Ceftriaxone Sodium (Rocephin) 2,000 mg in 70 mls @ 140 mls/hr IV NOW STA Stop: 08/12/23 18:25 Last Infusion: 08/12/23 20:22 Dose: 0 mls/hr Documented By: Admin: 08/12/23 19:03 Dose: 140 mls/hr Documented By: JERAMY Lactated Ringer's (Lr) 1,000 mls @ 999 mls/hr IV .Q1H1M ONE Stop: 08/12/23 19:20 Last Admin: 08/12/23 20:23 Dose: Not Given Documented By: JANNETTE Acetaminophen (Ofirmev) 1,000 mg in 100 mls @ 400 mls/hr IV NOW STA Stop: 08/12/23 20:02 Last Infusion: 08/12/23 20:53 Dose: 0 mls/hr Documented By: Admin: 08/12/23 20:38 Dose: 400 mls/hr Documented By: JANNETTE Calcium Gluconate 2,000 mg/ (Dextrose) 70 mls @ 240 mls/hr IV ONE ONE Stop: 08/12/23 21:02 Last Infusion: 08/12/23 21:47 Dose: 0 mls/hr Documented By: Admin: 08/12/23 21:29 Dose: 240 mls/hr Documented By: JANNETTE Ioversol (Optiray 320 125ml) 115 ml IV ONCE ONE Stop: 08/12/23 17:09 Last Admin: 08/12/23 17:10 Dose: 115 ml Documented By: DANIELLE Pantoprazole Sodium (Pantoprazole Bolus/Drip) 1 each IV NOW STA Stop: 08/12/23 17:26 Last Admin: 08/12/23 19:02 Dose: Not Given Documented By: [facility] Imaging Data Radiologist's Impression: Abdomen/Pelvis CT 08/12/23 16:49 CT abd pelvis IV con only CLINICAL HISTORY: weak, SOB, pain, on coumadin TECHNIQUE: Helical axial images of the abdomen and pelvis were obtained and displayed. Automated dose lowering techniques and/or adjustment according to patient size were utilized for this exam. This exam was performed with intravenous contrast. COMPARISON: Comparison is made to CT abdomen pelvis 12/27/2021 FINDINGS: Lower chest: No acute abnormality. Liver: Unremarkable. No focal lesions are seen. Gallbladder and biliary tree: Patient is status post cholecystectomy. No intra- or extrahepatic biliary ductal dilation. Pancreas: Fatty replacement of the pancreas is seen. Spleen: Unremarkable. Adrenals: Adrenal nodule is unchanged. Kidneys and ureters: Unremarkable. Bladder: Unremarkable. Reproductive organs: Patient is status post hysterectomy. Bowel: The appendix is normal. Lymph nodes Retroperitoneal: Unremarkable. Pelvic: Subcentimeter right common iliac node is noted. Mesenteric: Unremarkable. Peritoneum: Normal. Vessels: Atherosclerotic calcifications are seen. Abdominal wall: Degenerative Bones: Unremarkable. IMPRESSION: No acute abnormalities are seen. Status post cholecystectomy. Normal appendix. ACT 112: Negative or not required by law. Electronically signed by: Joesph Hoyt M.D. 08/12/2023 5:[address] 08/12/23 16:49 CT chest diagnostic w con CLINICAL HISTORY: sob, hypoxia, CP, on coumadin TECHNIQUE: Multidetector row helical CT of the chest was performed with intravenous contrast. Coronal and sagittal reformations were obtained. Automated dose lowering techniques and/or adjustment according to patient size were util ized for this exam. Comparison: Comparison is made to CT chest 09/16/2015 FINDINGS: Lungs and pleura: Atelectasis versus scarring is seen in the dependent portions of the lungs. Heart and pericardium: Heart size is normal. No pericardial effusion. Vessels: Mild atherosclerotic changes in the aorta and coronary arteries. No evidence of pulmonary embolus within the limits of a nondedicated exam. Mediastinum and jaylen: Unremarkable. Chest wall and lower neck: Unremarkable. Abdomen: Unremarkable. Bones: Unremarkable. IMPRESSION: No acute abnormalities are seen to explain chest pain and hypoxia. Likely mild interstitial lung disease. ACT 112: Negative or not required by law. Electronically signed by: Joesph Hoyt M.D. 08/12/2023 5:[address] 08/12/23 16:50 CT head/brain wo con CLINICAL HISTORY: headache Technique: Contiguous axial CT images of the head were acquired from the base of the skull to the vertex without intravenous contrast administration. Images were viewed in brain, subdural and bone windows. Automated dose lowering techniques and/or adjustment according to patient size were utilized for this exam. Comparison: Comparison is made to CT head 08/20/2022 Findings: The ventricles, basal cisterns, and cerebral sulci are normal. There is no acute intracranial hemorrhage or evidence of acute territorial infarction. Neither mass effect, shift of the midline structures, nor abnormal extra-axial fluid collections are shown. Redemonstration of focal encephalomalacia in the left temporoparietal and right frontal lobes. Imaged portions of the paranasal sinuses and mastoid air cells are clear. The orbits appear normal. There are no acute fractures of the calvaria or scalp swelling. Impression: No acute intracranial hemorrhage, no evidence of acute territorial infarction or other acute intracranial disease process. ACT 112: Negative or not required by law. Electronically signed by: Joesph Hoyt M.D. 08/12/2023 5:25 PM Discharge Plan Visit Data Chief Complaint: Illness Stated Complaint: WEAKNESS ED Provider: Christopher Schmid Discharge Problem: Acute gastrointestinal bleeding, Chest pain, Anticoagulant long-term use, Dizziness, Headache, Elevated lactic acid level, Elevated INR Patient Disposition: Admitted As Inpatient Discharge Instructions Interventions: ED Discharge Assessment Last Done: 08/12/23 19:13
[2023-08-12] MEDS ORDERED: OPTIRAY 320 125ml IV ONE (17:08)
[2023-08-12] MEDS ORDERED: PANTOPRAZOLE BOLUS/DRIP IV STA (17:25)
[2023-08-12] MEDS ORDERED: SODIUM CHLORIDE 0.9% 250 ML IV PRN ×4 (17:25→22:57)
[2023-08-12] MEDS ORDERED: PANTOprazole 80 MG in DEXTROSE 5% 100 ML IV ONE (17:25)
[2023-08-12 17:26] LABS: INR 2.2 (0.9-1.1); Prothrombin Time 22.5 Seconds (9.0-12.0)
--- NOTE | 2023-08-12 17:26 | CT Scan Report ---
CT head/brain wo con CLINICAL HISTORY: headache Technique: Contiguous axial CT images of the head were acquired from the base of the skull to the sayda jamil without intravenous contrast administration. Images were viewed in brain, subdural and [facility]. Automated dose lowering techniques and/or adjustment according to patient size were utilized for this exam. Comparison: Comparison is made to CT head 08/20/2022 Findings: The ventricles, basal cisterns, and cerebral sulci are normal. There is no acute intracranial hemorrh age or evidence of acute territorial infarction. Neither mass effect, shift of the midline structures , nor abnormal extra-axial fluid collections are shown. Redemonstration of focal encephalomalacia in the left temporoparietal and right frontal lobes. Imaged portions of the paranasal sinuses and mastoid air cells are clear. The orbits appear normal. There are no acute fractures of the calvaria or scalp swelling. Impression: No acute intracranial hemorrhage, no evidence of acute territorial infarction or other acute intracra nial disease process. ACT 112: Negative or not required by law. Electronically signed by: Joesph Hoyt M.D. 08/12/2023 5:25 PM
[2023-08-12] MEDS ORDERED: DESMOPRESSIN ACETATE 20 MCG in SODIUM CHLORIDE 0.9% 50 ML IV STA (17:28)
[2023-08-12 17:29] LABS: Hematocrit (blood only) 13.8 % (37.0-47.0); Hemoglobin 3.9 g/dl (12.0-16.0); Mean Corpuscular Hemoglobin 26.4 pg (25.0-34.0); Mean Corpuscular Hgb Conc 28.3 g/dL (32.0-36.0); Mean Corpuscular Volume 93.2 fL (80.0-100.0); Nucleated RBC % (auto) 17.5 %; Platelet Count 673 K/uL (130-400); RDW Coefficient of Variation 24.1 % (11.5-14.5); RDW Standard Deviation 76.6 fL (36.4-46.3); Red Blood Count 1.48 M/uL (4.20-5.40); White Blood Count 11.99 K/ul (4.8-10.8)
[2023-08-12] MEDS ORDERED: PHYTONADIONE 10 MG in DEXTROSE 5% 50 ML IV ONE (17:35)
[2023-08-12 17:36] LABS: Anisocytosis Present; Basophils # (auto) 0.02 K/uL (0.00-0.20); Basophils % (auto) 0.2 %; Eosinophils # (auto) 0.03 K/uL (0.00-0.50); Eosinophils % (auto) 0.3 %; Hypochromasia Present; Immature Granulocytes # (auto) 0.39 K/uL (0.01-0.20); Immature Granulocytes % (auto) 3.3 %; Lymphocytes # (auto) 2.07 K/uL (1.20-3.40); Lymphocytes % (auto) 17.3 %; Monocytes # (auto) 0.92 K/uL (0.11-0.59); Monocytes % (auto) 7.7 %; Neutrophils # (auto) 8.56 K/uL (1.40-6.50); Neutrophils % (auto) 71.2 %; Polychromasia 2+; Stomatocytes 2+; Target Cells 1+
[2023-08-12 17:37] LABS: Albumin Level 3.3 gm/dl (3.4-5.0); Bilirubin,Total 0.4 mg/dl (0.2-1.0); Magnesium 1.9 mg/dl (1.7-2.4)
[2023-08-12] MEDS ORDERED: ACETAMINOPHEN 1,000 MG/100 ML VIAL IV STA ×2 (17:39→19:48)
[2023-08-12 17:42] LABS: Albumin Globulin Ratio 1.3 (0.9-2); BUN Creatinine Ratio 24.5 (10-20); Creatinine Clr Calc Pharmacy 79.5 ml/min; Est GFR (African American) 71.2 ml/min; Est GFR (Non-African American) 61.4 ml/min; Globulin 2.5 gm/dl (2.5-4.0); Total Protein 5.8 gm/dl (6.0-8.3)
[2023-08-12 17:43] LABS: Troponin I High Sensitivity 6.6 pg/ml (0-14)
[2023-08-12] MEDS ORDERED: PROTHROMBIN COMP CONC- KCENTRA 2,500 UNITS in SYRINGE 0 ML IV ONE (17:45)
[2023-08-12 17:51] LABS: Appearance Urine Clear (Clear); Bacteria Urine Automated 2+ (Negative); Bilirubin Urine Negative (Negative); Blood Urine Negative (Negative); Color Urine Yellow; Glucose Urine UA Negative (Negative); Ketones Urine Negative (Negative); Leukocyte Esterase Urine 1+ (Negative); Nitrite Urine Positive (Negative); Protein Urine Negative (Negative); RBC Urine Automated 0-4 /hpf (0-4); Specific Gravity Urine 1.021 (1.000-1.030); Urobilinogen Urine Negative (Negative); pH Urine 5.5 (4.5-7.5)
[2023-08-12 17:51] LABS: Thyroid Stimulating Hormone 3.065 uIu/ml (0.300-4.500)
[2023-08-12] MEDS ORDERED: cefTRIAXone SODIUM 2,000 MG/70 ML BAG IV STA (17:56)
--- NOTE | 2023-08-12 17:58 | CT Scan Report ---
CT abd pelvis IV con only CLINICAL HISTORY: weak, SOB, pain, on coumadin TECHNIQUE: Helical axial images of the abdomen and pelvis were obtained and displayed. Automated dose lowering techniques and/or adjustment according to patient size were utilized for this exam. This e xam was performed with intravenous contrast. COMPARISON: Comparison is made to CT abdomen pelvis 12/27/2021 FINDINGS: Lower chest: No acute abnormality. Liver: Unremarkable. No focal lesions are seen. Gallbladder and biliary tree: Patient is status post cholecystectomy. No intra- or extrahepatic bilia ry ductal dilation. Pancreas: Fatty replacement of the pancreas is seen. Spleen: Unremarkable. Adrenals: Adrenal nodule is unchanged. Kidneys and ureters: Unremarkable. Bladder: Unremarkable. Reproductive organs: Patient is status post hysterectomy. Bowel: The appendix is normal. Lymph nodes Retroperitoneal: Unremarkable. Pelvic: Subcentimeter right common iliac node is noted. Mesenteric: Unremarkable. Peritoneum: Normal. Vessels: Atherosclerotic calcifications are seen. Abdominal wall: Degenerative Bones: Unremarkable. IMPRESSION: No acute abnormalities are seen. Status post cholecystectomy. Normal appendix. ACT 112: Negative or not required by law. Electronically signed by: Joesph Hoyt M.D. 08/12/2023 5:56 PM
--- NOTE | 2023-08-12 17:59 | CT Scan Report ---
CT chest diagnostic w con CLINICAL HISTORY: sob, hypoxia, CP, on coumadin TECHNIQUE: Multidetector row helical CT of the chest was performed with intravenous contrast. Coronal and sagittal reformations were obtained. Automated dose lowering techniques and/or adjustment accord ing to patient size were utilized for this exam. Comparison: Comparison is made to CT chest 09/16/2015 FINDINGS: Lungs and pleura: Atelectasis versus scarring is seen in the dependent portions of the lungs. Heart and pericardium: Heart size is normal. No pericardial effusion. Vessels: Mild atherosclerotic changes in the aorta and coronary arteries. No evidence of pulmonary em bolus within the limits of a nondedicated exam. Mediastinum and jaylen: Unremarkable. Chest wall and lower neck: Unremarkable. Abdomen: Unremarkable. Bones: Unremarkable. IMPRESSION: No acute abnormalities are seen to explain chest pain and hypoxia. Likely mild interstitial lung dise ase. ACT 112: Negative or not required by law. Electronically signed by: Joesph Hoyt M.D. 08/12/2023 5:58 PM
[2023-08-12] MEDS ORDERED: LACTATED RINGER'S 1,000 ML IV ONE (18:20)
[2023-08-12] MEDS: PANTOprazole 40 MG in DEXTROSE 5% MINI-B 100 ML IV SCH ×2 (18:34→23:25)
--- NOTE | 2023-08-12 19:16 | Communication Note ---
Date of Service: August 12, 2023 Patient is a 63-year-old female with past medical history of COPD on 4 L of oxygen at baseline, paroxysmal A-fib on Coumadin, chronic diastolic CHF, RUFINA, history of multiple stroke came to the ED with complaints of dizziness and weakness. As per outpatient review, patient INR was found to be elevated to greater than 9 on 08/09/2023. Her Coumadin was kept on hold as per anticoagulation clinic. Patient noticed black tarry stool which she thought was due to drinking Pepsi. Patient reports some chest discomfort. complaint of shortness of breath, abdominal pain or urinary symptoms. On presentation to the ED, patient was found to be hypotensive; other vitals were stable. Lab work was remarkable for hemoglobin of 3.9; her hemoglobin on was 10.9. Lactate was found to be 5.9. Fecal occult was positive. PT/INR was found to be 22.5/2.2. CT head without contrast did not show any acute findings. CT chest, abdomen and pelvis did not show any acute finding. Patient was given 10 mg of IV vitamin K, Kcentra and desmopressin. Protonix drip was started. Hospitalist consulted for admission. Discussion was done with ICU; patient to be admitted to ICU for closer monitoring. On physical exam; Constitutional: Appears pale, alert orient x3. Morbidly obese. Respiratory: Occasional wheeze heard. Cardiovascular: RRR, no murmur, no edema Vessels: no JVD or carotid bruit Chest: normal inspection of chest Abdomen: normal bowel sounds, soft, nontender, no hepatosplenomegaly Musculoskeletal: no cyanosis or clubbing, extremities motor strength 5/5 Skin: no rashes, warm and dry normal turgor Neurologic: PERRL, EOMI, accommodation nl, grossly intact. Psychiatric: A+Ox3, euthymic affect Assessment/plan Hypovolemic shock secondary to upper GI bleed Supratherapeutic INR status post Kcentra, vitamin K -4 units of packed RBC has been ordered; FFP to be ordered by ICU. -Trend lactate, H&H -Protonix drip -N.p.o. from midnight. GI consulted for possible endoscopy tomorrow a.m. -Rest per ICU Chronic conditions; COPDnot in exacerbation, continue home inhalers CHFpEF-well compensated, might need diuretics given transfusions. Lasix currently on hold. Hypertensionholding metoprolol and isosorbide mononitrate Mood disordercontinue home meds Full code. Updated her son over the phone. Answered questions/queries. Time critical spent evaluating patient, direct bedside care, chart review, placing orders, interpretation of diagnostic studies, discussion with consultants, patient, and family members, as well as other required patient management activities is 40 minutes
--- NOTE | 2023-08-12 19:26 | History & Physical Report ---
Date of Service August 12, 2023 Assessment & Plan (1) Acute gastrointestinal bleeding: (2) Hypovolemic shock: Plan: Hypovolemic shock secondary to upper GI bleed Supratherapeutic INR status post Kcentra, vitamin K Patient's presents with dizziness and increasing weakness. Black tarry stool for several days Hemoglobin on presentation 3.9. hemoglobin on 07/22 was 10.9 Lactate5.9 Fecal occult positive in ED PT/INR today was 2.2. CT head without contrast did not show any acute findings. CT chest, abdomen and pelvis did not show any acute finding. -4 units of packed RBC has been ordered; FFP to be ordered by ICU. -Trend lactate, H&H -Protonix drip -N.p.o. from midnight. GI consulted for possible endoscopy tomorrow a.m. -Rest per ICU Chronic conditions; COPDnot in exacerbation, continue home inhalers CHFpEF-well compensated, might need diuretics given transfusions. Lasix currently on hold. Hypertensionholding metoprolol and isosorbide mononitrate Mood disordercontinue home meds Full code. Updated her son over the phone. Answered questions/queries. Time critical spent evaluating patient, direct bedside care, chart review, placing orders, interpretation of diagnostic studies, discussion with consultants, patient, and family members, as well as other required patient management activities is 40 minutes Please note the above document was generated using voice recognition software. It may contain grammatical, syntax or spelling errors. Any formal questions or concerns about the content, text or information contained within the body of this dictation should be directly addressed to the provider for clarification History of Present Illness Chief Complaint: Dizziness, weakness for 3 days Primary Care Provider: Roger Alexandra MD History obtained from chart review and interview with the patient Patient is a 63-year-old female with past medical history of COPD on 4 L of oxygen at baseline, paroxysmal A-fib on Coumadin, chronic diastolic CHF, RUFINA, history of multiple stroke came to the ED with complaints of dizziness and weakness. As per outpatient review, patient INR was found to be elevated to greater than 9 on 08/09/2023. Her Coumadin was kept on hold as per anticoagulation clinic. Patient noticed black tarry stool which she thought was due to drinking Pepsi. Patient reports some chest discomfort. complaint of shortness of breath, abdominal pain or urinary symptoms. On presentation to the ED, patient was found to be hypotensive; other vitals were stable. Lab work was remarkable for hemoglobin of 3.9; her hemoglobin on 07/22 was 10.9. Lactate was found to be 5.9. Fecal occult was positive. PT/INR was found to be 22.5/2.2. CT head without contrast did not show any acute findings. CT chest, abdomen and pelvis did not show any acute finding. Patient was given 10 mg of IV vitamin K, Kcentra and desmopressin. Protonix drip was started. Hospitalist consulted for admission. Discussion was done with ICU; patient to be admitted to ICU for closer monitoring. Allergies Allergy/AdvReac Type Severity Reaction Status Date / Time aspirin Allergy Unknown TAKES Verified 08/12/23 19:00 COUMADIN salicylates AdvReac Unknown ?DUE TO Verified 08/12/23 19:00 COUMADIN? Home Medications Medication Instructions Recorded Confirmed Type albuterol sulfate 5 mg/mL(0.5 %) 2.5 mg inhalation DIRECTED PRN 08/20/22 08/12/23 History solution for nebulization Shortness Of Breath Or Wheezing albuterol sulfate 90 mcg/actuation 2 puff inhalation QID PRN sob 08/20/22 08/12/23 History aerosol inhaler baclofen 10 mg tablet 10 mg PO TID PRN Muscle Pain 08/20/22 08/12/23 History buspirone 10 mg tablet 20 mg PO AMHS 08/20/22 08/12/23 History cholecalciferol (vitamin D3) 25 25 mcg PO QAM 08/20/22 08/12/23 History mcg (1,000 unit) capsule (Vitamin D3) isosorbide mononitrate 30 mg 30 mg PO QAM 08/20/22 08/12/23 History tablet,extended release 24 hr lorazepam 0.5 mg tablet 0.5 mg PO Q8 PRN Anxiety 08/20/22 08/12/23 History tramadol 100 mg tablet 100 mg PO Q8 PRN .MOD-SEVERE PAIN 08/20/22 08/12/23 History warfarin 5 mg tablet 2.5 mg PO MOWEFR@1600 08/20/22 08/12/23 History ferrous sulfate 325 mg (65 mg 325 mg PO QAM 01/12/23 08/12/23 History iron) tablet acetaminophen 300 mg-codeine 30 mg 1 tab PO Q6 PRN Moderate Pain 07/15/23 08/12/23 History tablet (Scale Score 5-6) fluticasone propionate 115 2 puff inhalation AMHS 07/15/23 08/12/23 History mcg-salmeterol 21 mcg/actuation HFA inhaler (Advair HFA) metoprolol succinate 25 mg 25 mg PO QAM 07/15/23 08/12/23 History tablet,extended release 24 hr omeprazole 20 mg capsule,delayed 20 mg PO AMHS 07/15/23 08/12/23 History release potassium chloride 10 mEq 10 meq PO AMHS 07/15/23 08/12/23 History capsule,extended release solifenacin 10 mg tablet 10 mg PO QAM 07/15/23 08/12/23 History warfarin 5 mg tablet 5 mg PO SUTUTHSA 07/15/23 08/12/23 History furosemide 20 mg tablet (Lasix) 40 mg PO BID #30 tabs 07/23/23 08/12/23 Rx miconazole nitrate 2 % topical 1 applic EXT BID #28 grams 07/23/23 08/12/23 Rx cream montelukast 10 mg tablet 10 mg PO HS #30 tabs 07/23/23 08/12/23 Rx umeclidinium 62.5 mcg/actuation 1 inh inhalation DAILY #30 ea 07/23/23 08/12/23 Rx blister powder for inhalation (Incruse Ellipta) Past Med/Surg History Medical History Anemia Anticoagulated on Coumadin Anxiety and depression Chronic pain on daily narcotics (tramadol PRN) Chronic respiratory failure with hypoxia Congestive heart failure follows with [facility] cardiology (Patricia banks) COPD (chronic obstructive pulmonary disease) Degenerative disc disease Dementia "very early stages" Alert and oriented x3. granddaughter is the caregiver of patient. Diarrhea started about 1 year ago -- will come and go. History of COVID-19 Spring 2020. treated at [facility] inpatient. symptoms included: sob, cough, desaturation 84-87%, congestion, headache, fatigue. no ventilator at the time. no current problems. History of stroke "embolic stroke, underlying PFO" total of 9 strokes -> last stroke ~6+years ago. damaged urinary nerve and mild left sided weakness. Hypertension Morbid obesity On home oxygen therapy continuous 3lpm via n/c. (will increase to 4lpm via n/c if needed) Osteoarthritis Paroxysmal A-fib feels her heart race at times. Peripheral neuropathy Post traumatic stress disorder Sleep apnea mild RUFINA (dx in ) no machine currently -- pt to have another sleep study february 2023. Submucosal lesion of stomach Noted on EGD 11/06/20 Urinary incontinence Surgical History H/O colonoscopy H/O esophagogastroduodenoscopy History of cardiac cath [facility] - "long time ago" -- pt unsure of details. History of cataract surgery bilateral Hx of lumpectomy left breast (benign) Status post cholecystectomy Status post hernia repair Right inguinal Status post hysterectomy MERT with BSO Family History Grandmother (Maternal) FHx: bladder cancer Father FHx: stroke Other Heart disease No family history of adverse response to anesthesia Social History Smoking Status: Former smoker Tobacco Type: Cigarettes Second Hand Exposure: No; Do You Dip or Chew Tobacco: No; Hx Alcohol Use: No Hx Substance Use: No Preferred Language: Mohawk Communication Ability: Effective Transition Program Manager Required: No Beliefs That Will Affect Care: None marital status: / Current Living Situation: Alone Current Living Situation Comment: Granddaughter is the caregiver. Comes M-F 8am-4pm. Feels Safe at Home: Yes Assistive Devices: Hospital Bed, Nebulizer, Oxygen - Continuous, Scooter/Electric Scooter, Walker and Wheelchair Review of Systems Review of Systems: All systems reviewed & are unremarkable except as noted in Subjective Physical Exam Physical Exam: Constitutional: Appears pale, alert orient x3. Morbidly obese. Respiratory: Occasional wheeze heard. Cardiovascular: RRR, no murmur, no edema Vessels: no JVD or carotid bruit Chest: normal inspection of chest Abdomen: normal bowel sounds, soft, nontender, no hepatosplenomegaly Musculoskeletal: no cyanosis or clubbing, extremities motor strength 5/5 Skin: no rashes, warm and dry normal turgor Neurologic: PERRL, EOMI, accommodation nl, grossly intact. Psychiatric: A+Ox3, euthymic affect Results & Data Results & Data Vital Signs (Past 12 Hours) Vital Signs Temp Pulse Pulse Resp BP BP Pulse Ox 08/12/23 19:13 37.0 C 93 H 17 107/57 L 100 08/12/23 19:00 92 H 20 79/56 L 98 08/12/23 18:57 37.0 C 93 H 21 93/54 L 100 08/12/23 18:46 37.0 C 93 H 20 93/54 L 100 08/12/23 18:16 36.8 C 98 H 22 91/52 L 100 08/12/23 18:01 36.8 C 101 H 24 86/51 L 96 08/12/23 17:45 36.7 C 101 H 24 92/53 L 100 08/12/23 17:17 08/12/23 17:17 103 H 28 H 71/25 L 88 L 08/12/23 16:50 106 H 08/12/23 16:29 36.4 C L 107 H 22 87/62 L 96 O2 Del Method O2 Flow Rate 08/12/23 19:13 5 08/12/23 19:00 Room Air 08/12/23 18:57 5 08/12/23 18:46 6 08/12/23 18:16 08/12/23 18:01 6 08/12/23 17:45 6 08/12/23 17:17 Nasal Cannula 08/12/23 17:17 Nasal Cannula 5 08/12/23 16:50 08/12/23 16:29 Nasal Cannula 4 Laboratory Results Laboratory Results WBC 11.99 K/ul (4.8-10.8) H 08/12/23 16:38 RBC 1.48 M/uL (4.20-5.40) L 08/12/23 16:38 Hgb 3.9 g/dl (12.0-16.0) L* 08/12/23 16:38 Hct 13.8 % (37.0-47.0) L* 08/12/23 16:38 MCV 93.2 fL (80.0-100.0) 08/12/23 16:38 MCH 26.4 pg (25.0-34.0) 08/12/23 16:38 MCHC 28.3 g/dL (32.0-36.0) L 08/12/23 16:38 RDW Std Deviation 76.6 fL (36.4-46.3) H 08/12/23 16:38 RDW Coeff of Ursula 24.1 % (11.5-14.5) H 08/12/23 16:38 Plt Count 673 K/uL (130-400) H 08/12/23 16:38 MPV 10.0 fL (9.4-12.4) 08/12/23 16:38 Immature Gran % (Auto) 3.3 % 08/12/23 16:38 Neut % (Auto) 71.2 % 08/12/23 16:38 Lymph % (Auto) 17.3 % 08/12/23 16:38 [place] % (Auto) 7.7 % 08/12/23 16:38 Eos % (Auto) 0.3 % 08/12/23 16:38 Baso % (Auto) 0.2 % 08/12/23 16:38 Neut # (Auto) 8.56 K/uL (1.40-6.50) H 08/12/23 16:38 Lymph # (Auto) 2.07 K/uL (1.20-3.40) 08/12/23 16:38 [place] # (Auto) 0.92 K/uL (0.11-0.59) H 08/12/23 16:38 Eos # (Auto) 0.03 K/uL (0.00-0.50) 08/12/23 16:38 Baso # (Auto) 0.02 K/uL (0.00-0.20) 08/12/23 16:38 Immature Gran # (Auto) 0.39 K/uL (0.01-0.20) H 08/12/23 16:38 Absolute Nucleated RBC 2.10 K/uL (0.00-0.12) H 08/12/23 16:38 Nucleated RBC % (auto) 17.5 % 08/12/23 16:38 Polychromasia 2+ 08/12/23 16:38 Hypochromasia Present 08/12/23 16:38 Anisocytosis Present 08/12/23 16:38 Target Cells 1+ 08/12/23 16:38 Stomatocytes 2+ 08/12/23 16:38 PT 22.5 Seconds (9.0-12.0) H 08/12/23 16:49 INR 2.2 (0.9-1.1) H 08/12/23 16:49 Sodium 136 mmol/L (136-145) 08/12/23 16:38 Potassium 3.0 mmol/L (3.5-5.1) L 08/12/23 16:38 Chloride 93 mmol/L (98-107) L 08/12/23 16:38 Carbon Dioxide 30 mmol/L (21-32) 08/12/23 16:38 Anion Gap 13 (3-11) H 08/12/23 16:38 BUN 24 mg/dl (6-23) H 08/12/23 16:38 Creatinine 0.98 mg/dl (0.6-1.2) 08/12/23 16:38 Est Cr Clr Drug Dosing 79.5 ml/min 08/12/23 16:38 Est GFR ( Amer) 71.2 ml/min 08/12/23 16:38 Est GFR (Non-Af Amer) 61.4 ml/min 08/12/23 16:38 BUN/Creatinine Ratio 24.5 (10-20) H 08/12/23 16:38 Glucose 220 mg/dl (70-99(Fasting)) H 08/12/23 16:38 Lactate 5.9 mmol/L (0.4-2.0) H* 08/12/23 16:55 Calcium 8.0 mg/dl (8.6-10.3) L 08/12/23 16:38 Magnesium 1.9 mg/dl (1.7-2.4) 08/12/23 16:38 Total Bilirubin 0.4 mg/dl (0.2-1.0) 08/12/23 16:38 AST 25 U/L (13-39) 08/12/23 16:38 ALT 18 U/L (7-52) 08/12/23 16:38 Alkaline Phosphatase 86 U/L (34-104) 08/12/23 16:38 Total Creatine Kinase 311 U/L (26-192) H 08/12/23 16:38 Troponin I High Sens 6.6 pg/ml (0-14) 08/12/23 16:38 Total Protein 5.8 gm/dl (6.0-8.3) L 08/12/23 16:38 Albumin 3.3 gm/dl (3.4-5.0) L 08/12/23 16:38 Globulin 2.5 gm/dl (2.5-4.0) 08/12/23 16:38 Albumin/Globulin Ratio 1.3 (0.9-2) 08/12/23 16:38 TSH 3.065 uIu/ml (0.300-4.500) 08/12/23 16:38 Urine Color Yellow 08/12/23 17:30 Urine Appearance Clear (Clear) 08/12/23 17:30 Urine pH 5.5 (4.5-7.5) 08/12/23 17:30 Ur Specific [place] 1.021 (1.000-1.030) 08/12/23 17:30 Urine Protein Negative (Negative) 08/12/23 17:30 Urine Glucose (UA) Negative (Negative) 08/12/23 17:30 Urine Ketones Negative (Negative) 08/12/23 17:30 Urine Blood Negative (Negative) 08/12/23 17:30 Urine Nitrite Positive (Negative) A 08/12/23 17:30 Urine Bilirubin Negative (Negative) 08/12/23 17:30 Urine Urobilinogen Negative (Negative) 08/12/23 17:30 Ur Leukocyte Esterase 1+ (Negative) H 08/12/23 17:30 Urine WBC (Auto) 10-30 /hpf (0-5) H 08/12/23 17:30 Urine RBC (Auto) 0-4 /hpf (0-4) 08/12/23 17:30 U Hyaline Cast (Auto) 1-5 /lpf (0-5) 08/12/23 17:30 U Epithel Cells (Auto) 10-20 /lpf (0-5) H 08/12/23 17:30 Urine Bacteria (Auto) 2+ (Negative) H 08/12/23 17:30 POC Stool Occult Blood Positive (Negative) A 08/12/23 17:50 SARS-CoV-2, RNA, NAAT NEGATIVE (NEGATIVE) 08/12/23 17:30 Blood Type O Negative 08/12/23 16:49 Antibody Screen NEGATIVE 08/12/23 16:49 Crossmatch See Detail 08/12/23 16:49 Impressions Abdomen/Pelvis CT 08/12/23 16:49 CT abd pelvis IV con only CLINICAL HISTORY: weak, SOB, pain, on coumadin TECHNIQUE: Helical axial images of the abdomen and pelvis were obtained and displayed. Automated dose lowering techniques and/or adjustment according to patient size were utilized for this exam. This exam was performed with intravenous contrast. COMPARISON: Comparison is made to CT abdomen pelvis 12/27/2021 FINDINGS: Lower chest: No acute abnormality. Liver: Unremarkable. No focal lesions are seen. Gallbladder and biliary tree: Patient is status post cholecystectomy. No intra- or extrahepatic biliary ductal dilation. Pancreas: Fatty replacement of the pancreas is seen. Spleen: Unremarkable. Adrenals: Adrenal nodule is unchanged. Kidneys and ureters: Unremarkable. Bladder: Unremarkable. Reproductive organs: Patient is status post hysterectomy. Bowel: The appendix is normal. Lymph nodes Retroperitoneal: Unremarkable. Pelvic: Subcentimeter right common iliac node is noted. Mesenteric: Unremarkable. Peritoneum: Normal. Vessels: Atherosclerotic calcifications are seen. Abdominal wall: Degenerative Bones: Unremarkable. IMPRESSION: No acute abnormalities are seen. Status post cholecystectomy. Normal appendix. ACT 112: Negative or not required by law. Electronically signed by: Joesph Hoyt M.D. 08/12/2023 5:[address] 08/12/23 16:49 CT chest diagnostic w con CLINICAL HISTORY: sob, hypoxia, CP, on coumadin TECHNIQUE: Multidetector row helical CT of the chest was performed with intravenous contrast. Coronal and sagittal reformations were obtained. Automated dose lowering techniques and/or adjustment according to patient size were utilized for this exam. Comparison: Comparison is made to CT chest 09/16/2015 FINDINGS: Lungs and pleura: Atelectasis versus scarring is seen in the dependent portions of the lungs. Heart and pericardium: Heart size is normal. No pericardial effusion. Vessels: Mild atherosclerotic changes in the aorta and coronary arteries. No evidence of pulmonary embolus within the limits of a nondedicated exam. Mediastinum and jaylen: Unremarkable. Chest wall and lower neck: Unremarkable. Abdomen: Unremarkable. Bones: Unremarkable. IMPRESSION: No acute abnormalities are seen to explain chest pain and hypoxia. Likely mild interstitial lung disease. ACT 112: Negative or not required by law. Electronically signed by: Joesph Hoyt M.D. 08/12/2023 5:[address] 08/12/23 16:50 CT head/brain wo con CLINICAL HISTORY: headache Technique: Contiguous axial CT images of the head were acquired from the base of the skull to the vertex without intravenous contrast administration. Images were viewed in brain, subdural and bone windows. Automated dose lowering techniques and/or adjustment according to patient size were utilized for this exam. Comparison: Comparison is made to CT head 08/20/2022 Findings: The ventricles, basal cisterns, and cerebral sulci are normal. There is no acute intracranial hemorrhage or evidence of acute territorial infarction. Neither mass effect, shift of the midline structures, nor abnormal extra-axial fluid collections are shown. Redemonstration of focal encephalomalacia in the left temporoparietal and right frontal lobes. Imaged portions of the paranasal sinuses and mastoid air cells are clear. The orbits appear normal. There are no acute fractures of the calvaria or scalp swelling. Impression: No acute intracranial hemorrhage, no evidence of acute territorial infarction or other acute intracranial disease process. ACT 112: Negative or not required by law. Electronically signed by: Joesph Hoyt M.D. 08/12/2023 5:25 PM
--- NOTE | 2023-08-12 19:30 | Critical Care Consultation ---
Date of Consultation August 12, 2023 Assessment & Plan (1) Hypovolemic shock: (2) Acute blood loss anemia: (3) Acute gastrointestinal bleeding: (4) UTI (urinary tract infection): (5) Chronic diastolic CHF (congestive heart failure): (6) Atrial fibrillation: (7) COPD with exacerbation: (8) Chronic respiratory failure: (9) History of CVA (cerebrovascular accident): (10) Morbid obesity: Plan Reason Critically Ill: 63 YOF that earlier in the week was treated for supra therapeutic INR reported up to 9.0, comes to EMD hypotensive, tachycardic, anaemic to 3.9, elevated lactate 5.9 in setting of reported dark tarry stools and upper gastric discomfort. She was reversed with Kcentra, Vitamin K, and DDAVP. Admitted to ICU for hemorrhagic/hypovolemic shock. Neuro - HX of CVA, chronic pain, HX of CVA CAM ICU: NEGATIVE - maintain sleep wake cycles follow for ICU delirium - Chronic pain of left hip- IV Tylenol- could consider further dedicated imaging if worsens - Baseline physical function reportedly as bed bound Cardiac - Hemorrhagic shock, HFpEF, Afib, - Hemorrhagic shock - likely secondary to GI bleed unspecified source- Transfuse 3-5 units of PRBC, 1 unit FFP, - Lactate improving following 2 units PRBC, check HGB level now- to ensure not actively dropping - INR now - could re-dose Kcentra if needed - Give 2GM Calcium Gluconate IVPB now - Central line if needed, arterial line if refractory hypotension - For her AFIB- Hold BB until hemodynamically stable - Hold Warfarin until bleeding favored to have stopped and hemodynamics remain stable - HFpEF- EF in 12/07 with EF >70% diastolic dysfunction, Normal LV and Normal RV TAPSE normal- diurese as hemodynamics allow - follow NA levels Respiratory - COPD, Chronic hypoxic respiratory failure, obesity hypoventilation - COPD- no acute needs not exacerbation, continue home inhalers - She is with chronically elevated HCO3- and reported as not tolerable of PPV at home - Continue with NC- BIPAP if needed GI - GI Bleed unspecified - Presumed UGI bleed with epigastric pain, nausea, and dark tarry stools reported- She has not had any hematemesis, BUN not elevated- no active hemorrhage interpreted on CT abd/pelvis - Blatchford score- 15 - Transfuse as above- Hemodynamics currently improving, lactate improving - Protonix infusion - NPO - GI consultation - Previous colonoscopy noted with diverticular disease, polyps and angiodysplastic lesion in the ascending colon RENAL/LYTES - Electrolyte imbalances - ICU electrolyte protocol - IV Calcium as above - 1 GM per ever 3 units - [place] to gravity - Placed for accurate ROSE and renal perfusion - remove once stabilized ENDO - No acute needs HEME - Acute blood loss anemia- normocytic normochromic, thrombocytosis - Difficult to ascertain time frame- however she currently is with evidence of hypotension, tachycardia and elevated lactate - this is likely acute on chronic anemia - her baseline HGB ~9 - Thrombocytosis- chronic likely secondary to chronic anemia - As above ID - UTI - with her obesity difficult to ascertain her symptoms- urine is with LE, NIT and 2+ bacteria- Will place on Rocephin await culture LINES/IV ACCESS - PIV x3 , [place] Continue use of these lines - If she decompensates or acutely bleeds more- may need CVL and arterial line, and/or NGT DVT PROPHYLAXIS - SCDS Chemoprophylaxis on hold with anaemia DISPO: ICU while active resuscitation I have personally spent 55 minutes of critical care time in the direct management of this patient. This is a life/limb threatening event. This includes time spent evaluating patient, direct bedside care, chart review, placing orders, interpretation of diagnostic studies, discussion with consultants, patient, and family members, as well as other required patient management activities. This time is exclusive of all separately billable procedures, and teaching time and separate from and in addition to any other critical care service time. Thank you for allowing us to participate in the care of this patient. Please refer to my attending physician's documentation for any further recommendations. Supervising Physician Co-Signing Physician Notes Patient seen and examined. EMR reviewed. Discussed with critical care JOSEPHINE. Agree with assessment plan as noted. Please refer to my progress note from 08/13/2023 for additional details History of Present Illness Reason for Consultation: hemorrhagic shock Requesting Physician: Jeremi Attending Physician: Jeremi History of Present Illness 63 YOF with medical history of: Morbid obesity for which she is bed bound, COPD with chronic respiratory failure- (unable to tolerate PPV at home), Afib with PFO (on Warfarin), [place], HFpEF, CVA, frequent falls. Patient comes to the EMD today for complaints of feeling fatigued, dyspneiec, and dizzy. She was previously being managed as out patient for supratherapeutic INR to 9.0. Patient reports that over the past 3-5 days she has noted increase in dark black stools, which she thought was from drinking pepsi. SHe also endorses increase in upper abdominal pain, which she describes as constant burny gnawing pain. This has not gotten worse or better at home and she has not taken anything for this. She also endorses with this that she has had increase in burning in her throat, nausea without vomiting and loss of appetite for past week. She is unable to recall whether food made her stomach feel better or worse, but states that even without eating she has continued discomfort. In the EMD the patient had routine labs performed to include INR and lactate, CT scan of chest and abdomen/pelvis with IV contrast, CXR and ECG performed. She was noted to be tachycardic to the 130s on admission with hypotension 70/20's. Her labs resulted with HGB level of 3.9, and INR of 2.2, platelet count of 637 and lactate level of 5.9. She was given Kcentra, 10mg of Vitamin K, and DDAVP and initiated on Protonix infusion. Imaging did not reveal any acute bleed or spontaneous retroperitoneal bleeding. She was given 2 units of PRBC upon my evaluation- with noted increase in her SBP. She does report left hip pain that is chronic for her and reports that she did fall a few weeks ago, but pain has not gotten worse from this. CTA/P is not interpreted with any hip fracture and her left his is soft without any firmness/hematoma. GI was consulted by EMD provider with no acute plans for EGD at this time. She is chronically on 2LNC at home and remains on this currently. She has PIV access at this time that is reasonable for now. Patient will be admitted for transfusing of blood, following hemodynamics and tissue perfusion. She will continue to get PRBCs and 1 unit of FFP, asked that ionized calcium be drawn as well as fibrinogen and repeat INR. CODE: FULL Allergies Allergy/AdvReac Type Severity Reaction Status Date / Time aspirin Allergy Unknown TAKES Verified 08/13/23 10:10 COUMADIN salicylates AdvReac Unknown ?DUE TO Verified 08/13/23 10:10 COUMADIN? Home Medications Medication Instructions Recorded Confirmed Type albuterol sulfate 5 mg/mL(0.5 %) 2.5 mg inhalation DIRECTED PRN 08/20/22 08/12/23 History solution for nebulization Shortness Of Breath Or Wheezing albuterol sulfate 90 mcg/actuation 2 puff inhalation QID PRN sob 08/20/22 08/12/23 History aerosol inhaler baclofen 10 mg tablet 10 mg PO TID PRN Muscle Pain 08/20/22 08/12/23 History buspirone 10 mg tablet 20 mg PO AMHS 08/20/22 08/12/23 History cholecalciferol (vitamin D3) 25 25 mcg PO QAM 08/20/22 08/12/23 History mcg (1,000 unit) capsule (Vitamin D3) isosorbide mononitrate 30 mg 30 mg PO QAM 08/20/22 08/12/23 History tablet,extended release 24 hr lorazepam 0.5 mg tablet 0.5 mg PO Q8 PRN Anxiety 08/20/22 08/12/23 History tramadol 100 mg tablet 100 mg PO Q8 PRN .MOD-SEVERE PAIN 08/20/22 08/12/23 History warfarin 5 mg tablet 2.5 mg PO MOWEFR@1600 08/20/22 08/12/23 History ferrous sulfate 325 mg (65 mg 325 mg PO QAM 01/12/23 08/12/23 History iron) tablet acetaminophen 300 mg-codeine 30 mg 1 tab PO Q6 PRN Moderate Pain 07/15/23 08/12/23 History tablet (Scale Score 5-6) fluticasone propionate 115 2 puff inhalation [facility] 07/15/23 08/12/23 History mcg-salmeterol 21 mcg/actuation HFA inhaler (Advair HFA) metoprolol succinate 25 mg 25 mg PO QAM 07/15/23 08/12/23 History tablet,extended release 24 hr omeprazole 20 mg capsule,delayed 20 mg PO AMHS 07/15/23 08/12/23 History release potassium chloride 10 mEq 10 meq PO AMHS 07/15/23 08/12/23 History capsule,extended release solifenacin 10 mg tablet 10 mg PO QAM 07/15/23 08/12/23 History warfarin 5 mg tablet 5 mg PO SUTUTHSA 07/15/23 08/12/23 History furosemide 20 mg tablet (Lasix) 40 mg PO BID #30 tabs 07/23/23 08/12/23 Rx miconazole nitrate 2 % topical 1 applic EXT BID #28 grams 07/23/23 08/12/23 Rx cream montelukast 10 mg tablet 10 mg PO HS #30 tabs 07/23/23 08/12/23 Rx umeclidinium 62.5 mcg/actuation 1 inh inhalation DAILY #30 ea 07/23/23 08/12/23 Rx blister powder for inhalation (Incruse Ellipta) Patient History Medical History Anemia Anticoagulated on Coumadin Anxiety and depression Chronic pain on daily narcotics (tramadol PRN) Chronic respiratory failure with hypoxia Congestive heart failure follows with [facility] cardiology (Patricia banks) COPD (chronic obstructive pulmonary disease) Degenerative disc disease Dementia "very early stages" Alert and oriented x3. granddaughter is the caregiver of patient. Diarrhea started about 1 year ago -- will come and go. Encounter for pre-operative examination History of COVID-19 Spring 2020. treated at [facility] inpatient. symptoms included: sob, cough, desaturation 84-87%, congestion, headache, fatigue. no ventilator at the time. no current problems. History of stroke "embolic stroke, underlying PFO" total of 9 strokes -> last stroke ~6+years ago. damaged urinary nerve and mild left sided weakness. Hypertension Morbid obesity On home oxygen therapy continuous 3lpm via n/c. (will increase to 4lpm via n/c if needed) Osteoarthritis Paroxysmal A-fib feels her heart race at times. Peripheral neuropathy Post traumatic stress disorder Sleep apnea mild RUFINA (dx in ) no machine currently -- pt to have another sleep study february 2023. Submucosal lesion of stomach Noted on EGD 11/06/20 Urinary incontinence Surgical History H/O colonoscopy H/O esophagogastroduodenoscopy History of cardiac cath [facility] Ault - "long time ago" -- pt unsure of details. History of cataract surgery bilateral Hx of lumpectomy left breast (benign) Status post cholecystectomy Status post hernia repair Right inguinal Status post hysterectomy MERT with BSO Family History Grandmother (Maternal) FHx: bladder cancer Father FHx: stroke Other Heart disease No family history of adverse response to anesthesia Social History Smoking Status: Former smoker Tobacco Type: Cigarettes Second Hand Exposure: No; Do You Dip or Chew Tobacco: No; Hx Alcohol Use: No Hx Substance Use: No Preferred Language: Yoruba Communication Ability: Effective [employer] Executive Required: No Beliefs That Will Affect Care: None marital status: / Current Living Situation: Alone Current Living Situation Comment: Granddaughter is the caregiver. Comes M-F 8am-4pm. Other Information That Helps Us Care for You: No Feels Safe at Home: Yes Safety Concerns: Feels Safe At This Time Assistive Devices: Denture - Upper, Glasses, Oxygen - Continuous, Walker and Wheelchair Review of Systems Review of Systems: REVIEW OF SYSTEMS: Constitutional: (+) generalized overall weakness and dizziness, No fever, sweats or chills Eyes: No diplopia, no worsening or blurred vision ENT: normal hearing, no trouble swallowing Respiratory: (+) chronic dyspnea, on 2LNC at home, No cough, sputum, dyspnea at rest or on exertion Cardiovascular: No chest pain, tightness or palpitations Abdomen: (+) pain, nausea, loss of appetite, dark stools, NO vomiting, diarrhea or constipation Musculoskeletal: (+) left hip joint pain, NO calf pain, swelling Neurologic: No new weakness, numbness/tingling, or balance problems Skin: (+) bruises Physical Exam 2 Physical Exam: PHYSICAL EXAM: General: awake, alert, conversant, no apparent distress Head: Normocephalic, atraumatic ENT: PERRLA, EOMI, no pharyngeal exudate, mucous membranes dry Neuro: AAO x 3, speech clear and appropriate, strength intact bilaterally 4/5, sensation intact and equal all extremities and dermatomes, no pronator drift Chest: equal rise and fall of the chest, no accessory muscle use, decreased breath sounds throughout secondary to body habitus Cardiac: Regular rate and rhythm, telemetry reviewed, skin warm dry, cap refill ~3 seconds, peripheral pusles +1, no JVD, no murmur, 1+ edema to lower extremities GI: NABS x 4 quadrants, soft,tender to palpation epigastrium, no rebound, guarding or tenderness : [place] to gravity Extremities: Normal inspection, no peripheral edema or erythema, calfs nontender to palpation Psych: Normal mood and affect Skin: brusing on fingers, toes, and legs Results & Data Results & Data Vital Signs (Past 12 Hours) Vital Signs Temp Pulse Pulse Resp BP BP Pulse Ox 08/12/23 19:00 92 H 20 79/56 L 98 08/12/23 18:57 37.0 C 93 H 21 93/54 L 100 08/12/23 18:46 37.0 C 93 H 20 93/54 L 100 08/12/23 18:16 36.8 C 98 H 22 91/52 L 100 08/12/23 18:01 36.8 C 101 H 24 86/51 L 96 08/12/23 17:45 36.7 C 101 H 24 92/53 L 100 08/12/23 17:17 08/12/23 17:17 103 H 28 H 71/25 L 88 L 08/12/23 16:50 106 H 08/12/23 16:29 36.4 C L 107 H 22 87/62 L 96 O2 Del Method O2 Flow Rate 08/12/23 19:00 Room Air 08/12/23 18:57 5 08/12/23 18:46 6 08/12/23 18:16 08/12/23 18:01 6 08/12/23 17:45 6 08/12/23 17:17 Nasal Cannula 08/12/23 17:17 Nasal Cannula 5 08/12/23 16:50 08/12/23 16:29 Nasal Cannula 4 Laboratory Results Abnormal lab results 08/12/23 08/12/23 08/12/23 Range/Units 16:38 16:38 16:49 WBC 11.99 H (4.8-10.8) K/ul RBC 1.48 L (4.20-5.40) M/uL Hgb 3.9 L* (12.0-16.0) g/dl Hct 13.8 L* (37.0-47.0) % MCHC 28.3 L (32.0-36.0) g/dL RDW Std Deviation 76.6 H (36.4-46.3) fL RDW Coeff of Ursula 24.1 H (11.5-14.5) % Plt Count 673 H (130-400) K/uL Neut # (Auto) 8.56 H (1.40-6.50) K/uL [place] # (Auto) 0.92 H (0.11-0.59) K/uL Immature Gran # (Auto) 0.39 H (0.01-0.20) K/uL Absolute Nucleated RBC 2.10 H (0.00-0.12) K/uL PT (9.0-12.0) Seconds INR (0.9-1.1) Potassium 3.0 L (3.5-5.1) mmol/L Chloride 93 L (98-107) mmol/L Anion Gap 13 H (3-11) BUN 24 H (6-23) mg/dl BUN/Creatinine Ratio 24.5 H (10-20) Glucose 220 H (70-99(Fasting)) mg/dl Lactate (0.4-2.0) mmol/L Calcium 8.0 L (8.6-10.3) mg/dl Total Creatine Kinase 311 H (26-192) U/L Total Protein 5.8 L (6.0-8.3) gm/dl Albumin 3.3 L (3.4-5.0) gm/dl Urine Nitrite (Negative) Ur Leukocyte Esterase (Negative) Urine WBC (Auto) (0-5) /hpf U Epithel Cells (Auto) (0-5) /lpf Urine Bacteria (Auto) (Negative) POC Stool Occult Blood (Negative) Crossmatch See Detail 08/12/23 08/12/23 08/12/23 Range/Units 16:49 16:55 17:30 WBC (4.8-10.8) K/ul RBC (4.20-5.40) M/uL Hgb (12.0-16.0) g/dl Hct (37.0-47.0) % MCHC (32.0-36.0) g/dL RDW Std Deviation (36.4-46.3) fL RDW Coeff of Ursula (11.5-14.5) % Plt Count (130-400) K/uL Neut # (Auto) (1.40-6.50) K/uL [place] # (Auto) (0.11-0.59) K/uL Immature Gran # (Auto) (0.01-0.20) K/uL Absolute Nucleated RBC (0.00-0.12) K/uL PT 22.5 H (9.0-12.0) Seconds INR 2.2 H (0.9-1.1) Potassium (3.5-5.1) mmol/L Chloride (98-107) mmol/L Anion Gap (3-11) BUN (6-23) mg/dl BUN/Creatinine Ratio (10-20) Glucose (70-99(Fasting)) mg/dl Lactate 5.9 H* (0.4-2.0) mmol/L Calcium (8.6-10.3) mg/dl Total Creatine Kinase (26-192) U/L Total Protein (6.0-8.3) gm/dl Albumin (3.4-5.0) gm/dl Urine Nitrite Positive A (Negative) Ur Leukocyte Esterase 1+ H (Negative) Urine WBC (Auto) 10-30 H (0-5) /hpf U Epithel Cells (Auto) 10-20 H (0-5) /lpf Urine Bacteria (Auto) 2+ H (Negative) POC Stool Occult Blood (Negative) Crossmatch 08/12/23 Range/Units 17:50 WBC (4.8-10.8) K/ul RBC (4.20-5.40) M/uL Hgb (12.0-16.0) g/dl Hct (37.0-47.0) % MCHC (32.0-36.0) g/dL RDW Std Deviation (36.4-46.3) fL RDW Coeff of Ursula (11.5-14.5) % Plt Count (130-400) K/uL Neut # (Auto) (1.40-6.50) K/uL [place] # (Auto) (0.11-0.59) K/uL Immature Gran # (Auto) (0.01-0.20) K/uL Absolute Nucleated RBC (0.00-0.12) K/uL PT (9.0-12.0) Seconds INR (0.9-1.1) Potassium (3.5-5.1) mmol/L Chloride (98-107) mmol/L Anion Gap (3-11) BUN (6-23) mg/dl BUN/Creatinine Ratio (10-20) Glucose (70-99(Fasting)) mg/dl Lactate (0.4-2.0) mmol/L Calcium (8.6-10.3) mg/dl Total Creatine Kinase (26-192) U/L Total Protein (6.0-8.3) gm/dl Albumin (3.4-5.0) gm/dl Urine Nitrite (Negative) Ur Leukocyte Esterase (Negative) Urine WBC (Auto) (0-5) /hpf U Epithel Cells (Auto) (0-5) /lpf Urine Bacteria (Auto) (Negative) POC Stool Occult Blood Positive A (Negative) Crossmatch Diagnostic Findings Abdomen/Pelvis CT 08/12/23 16:49 CT abd pelvis IV con only CLINICAL HISTORY: weak, SOB, pain, on coumadin TECHNIQUE: Helical axial images of the abdomen and pelvis were obtained and displayed. Automated dose lowering techniques and/or adjustment according to patient size were utilized for this exam. This exam was performed with intravenous contrast. COMPARISON: Comparison is made to CT abdomen pelvis 12/27/2021 FINDINGS: Lower chest: No acute abnormality. Liver: Unremarkable. No focal lesions are seen. Gallbladder and biliary tree: Patient is status post cholecystectomy. No intra- or extrahepatic biliary ductal dilation. Pancreas: Fatty replacement of the pancreas is seen. Spleen: Unremarkable. Adrenals: Adrenal nodule is unchanged. Kidneys and ureters: Unremarkable. Bladder: Unremarkable. Reproductive organs: Patient is status post hysterectomy. Bowel: The appendix is normal. Lymph nodes Retroperitoneal: Unremarkable. Pelvic: Subcentimeter right common iliac node is noted. Mesenteric: Unremarkable. Peritoneum: Normal. Vessels: Atherosclerotic calcifications are seen. Abdominal wall: Degenerative Bones: Unremarkable. IMPRESSION: No acute abnormalities are seen. Status post cholecystectomy. Normal appendix. ACT 112: Negative or not required by law. Electronically signed by: Joesph Hoyt M.D. 08/12/2023 5:[address] 08/12/23 16:49 CT chest diagnostic w con CLINICAL HISTORY: sob, hypoxia, CP, on coumadin TECHNIQUE: Multidetector row helical CT of the chest was performed with intravenous contrast. Coronal and sagittal reformations were obtained. Automated dose lowering techniques and/or adjustment according to patient size were utilized for this exam. Comparison: Comparison is made to CT chest 09/16/2015 FINDINGS: Lungs and pleura: Atelectasis versus scarring is seen in the dependent portions of the lungs. Heart and pericardium: Heart size is normal. No pericardial effusion. Vessels: Mild atherosclerotic changes in the aorta and coronary arteries. No evidence of pulmonary embolus within the limits of a nondedicated exam. Mediastinum and jaylen: Unremarkable. Chest wall and lower neck: Unremarkable. Abdomen: Unremarkable. Bones: Unremarkable. IMPRESSION: No acute abnormalities are seen to explain chest pain and hypoxia. Likely mild interstitial lung disease. ACT 112: Negative or not required by law. Electronically signed by: Joesph Hoyt M.D. 08/12/2023 5:[address] 08/12/23 16:50 CT head/brain wo con CLINICAL HISTORY: headache Technique: Contiguous axial CT images of the head were acquired from the base of the skull to the vertex without intravenous contrast administration. Images were viewed in brain, subdural and bone windows. Automated dose lowering techniques and/or adjustment according to patient size were utilized for this exam. Comparison: Comparison is made to CT head 08/20/2022 Findings: The ventricles, basal cisterns, and cerebral sulci are normal. There is no acute intracranial hemorrhage or evidence of acute territorial infarction. Neither mass effect, shift of the midline structures, nor abnormal extra-axial fluid collections are shown. Redemonstration of focal encephalomalacia in the left temporoparietal and right frontal lobes. Imaged portions of the paranasal sinuses and mastoid air cells are clear. The orbits appear normal. There are no acute fractures of the calvaria or scalp swelling. Impression: No acute intracranial hemorrhage, no evidence of acute territorial infarction or other acute intracranial disease process. ACT 112: Negative or not required by law. Electronically signed by: Joesph Hoyt M.D. 08/12/2023 5:25 PM Medications Administered Pantoprazole Sodium 40 mg/ (Dextrose) 100 mls @ 20 mls/hr IV Q5H MARY Stop: 09/11/23 17:44 Last Admin: 08/12/23 18:34 Dose: 8 mg/hr, 20 mls/hr Documented By: BMK Discontinued Medications Pantoprazole Sodium 80 mg/ (Dextrose) 120 mls @ 400 mls/hr IV NOW ONE Stop: 08/12/23 17:42 Last Infusion: 08/12/23 18:30 Dose: 0 mls/hr Documented By: Admin: 08/12/23 18:11 Dose: 400 mls/hr Documented By: COLLEEN Desmopressin Acetate 20 mcg/ (Sodium Chloride) 55 mls @ 100 mls/hr IV NOW STA Stop: 08/12/23 18:00 Last Infusion: 08/12/23 18:59 Dose: 0 mls/hr Documented By: Admin: 08/12/23 18:25 Dose: 100 mls/hr Documented By: COLLEEN Phytonadione 10 mg/ Dextrose 51 mls @ 102 mls/hr IV ONE ONE Stop: 08/12/23 18:04 Last Infusion: 08/12/23 18:26 Dose: 0 mls/hr Documented By: Admin: 08/12/23 17:46 Dose: 102 mls/hr Documented By: COLLEEN Prothrombin Complex Concent ( (Human) 2,500 units/ Syringe) 100 mls @ 10 mls/min IV NOW ONE; Protocol Stop: 08/12/23 17:54 Last Admin: 08/12/23 17:53 Dose: 10 mls/min Documented By: COLLEEN Acetaminophen (Ofirmev) 1,000 mg in 100 mls @ 400 mls/hr IV NOW STA Stop: 08/12/23 17:53 Last Infusion: 08/12/23 18:58 Dose: 0 mls/hr Documented By: Admin: 08/12/23 18:25 Dose: 400 mls/hr Documented By: COLLEEN Ceftriaxone Sodium (Rocephin) 2,000 mg in 70 mls @ 140 mls/hr IV NOW STA Stop: 08/12/23 18:25 Last Admin: 08/12/23 19:03 Dose: 140 mls/hr Documented By: JERAMY Ioversol (Optiray 320 125ml) 115 ml IV ONCE ONE Stop: 08/12/23 17:09 Last Admin: 08/12/23 17:10 Dose: 115 ml Documented By: DANIELLE Pantoprazole Sodium (Pantoprazole Bolus/Drip) 1 each IV NOW STA Stop: 08/12/23 17:26 Last Admin: 08/12/23 19:02 Dose: Not Given Documented By: DLH ECG Additional Comments: Sinus tachycardia Low voltage QRS Nonspecific ST and T wave abnormality Abnormal ECG When compared with ECG of 21-JUL-2023 09:28, ST now depressed in Anterior leads T wave inversion now evident in Anterior leads Coding Level of Care Code 22409 CRITICAL CARE 1ST 30-74M Diagnoses Hypovolemic shock R57.1 Acute blood loss anemia D62 Acute gastrointestinal bleeding K92.2 UTI (urinary tract infection) N39.0 Chronic diastolic CHF (congestive heart failure) I50.32 Atrial fibrillation I48.91 COPD with exacerbation J44.1 Chronic respiratory failure J96.11 Respiratory failure complication: hypoxia History of CVA (cerebrovascular accident) Z86.73 Morbid obesity E66.01 (8) Chronic respiratory failure Respiratory failure complication: hypoxia Qualified Code(s): J96.11 - Chronic respiratory failure with hypoxia
--- NOTE | 2023-08-12 19:39 | History & Physical Report ---
Date of Service August 12, 2023 Assessment & Plan (1) Hypovolemic shock: (2) Anemia: (3) Acute gastrointestinal bleeding: (4) Anticoagulant long-term use: Plan: Admit to ICU Patient presenting from home with reports of generalized weakness and dark tarry stools. In the ED, found to be hypotensive and Hgb 3.5, INR 2.2 S/p vitamin K, Kcentra, desmopressin in the ED Transfuse 4 unit PRBC PPI drip GI consult (5) Elevated lactic acid level: (6) UTI (urinary tract infection): Plan: Lactate 5.9 --> 2.4 Likely secondary to hypoperfusion from profound anemia and hypotension. Possible sepsis given positive UA, mild leukocytosis, WBC 11.9. Currently afebrile. Transfuse PRBC, trend lactate, IV ceftriaxone for possible UTI Follow cultures (7) COPD (chronic obstructive pulmonary disease): (8) Chronic respiratory failure with hypoxia: Plan: No signs of acute exacerbation Continue home inhalers Saturating well on chronic for liters of oxygen (9) Chronic diastolic CHF (congestive heart failure): Plan: Appears compensated Consider IV Lasix with PRBC transfusion (10) Paroxysmal A-fib: Plan: Rate controlled on metoprolol Anticoagulated on Coumadin -holding due to profound anemia, hypovolemic shock, GI bleeding (11) Depression, unspecified: (12) Anxiety disorder, unspecified: Plan: Chronic, stable Continue home meds DVT PROPHYLAXIS SCDs due to anemia, GI bleeding Patient seen in collaboration with Dr. Blood. History of Present Illness Chief Complaint: Weakness Primary Care Provider: Roger Alexandra MD 63-year-old female with PMH COPD on chronic 4 L of oxygen, paroxysmal atrial fibrillation on Coumadin, chronic diastolic CHF, RUFINA, obesity hypoventilation, history of multiple strokes, and other problems listed below who presents to the ED for evaluation of weakness. History obtained from the patient and review of PCP records. Patient has had an INR > 9 on outpatient testing. Coumadin was held. Patient has noted dark tarry stools. She denies abdominal pain, nausea, vomiting. No chest pain or shortness of breath. Denies fevers and chills. No urinary symptoms. In the ED, patient was found to be hypotensive. Labs showed Hgb 3.9, lactate 5.9, INR 2.2. Patient was given IV vitamin K 10 mg, Kcentra, desmopressin. PPI bolus and drip started. Patient will be admitted to ICU for additional management. Allergies Allergy/AdvReac Type Severity Reaction Status Date / Time aspirin Allergy Unknown TAKES Verified 08/13/23 10:10 COUMADIN salicylates AdvReac Unknown ?DUE TO Verified 08/13/23 10:10 COUMADIN? Home Medications Medication Instructions Recorded Confirmed Type albuterol sulfate 5 mg/mL(0.5 %) 2.5 mg inhalation DIRECTED PRN 08/20/22 08/12/23 History solution for nebulization Shortness Of Breath Or Wheezing albuterol sulfate 90 mcg/actuation 2 puff inhalation QID PRN sob 08/20/22 08/12/23 History aerosol inhaler baclofen 10 mg tablet 10 mg PO TID PRN Muscle Pain 08/20/22 08/12/23 History buspirone 10 mg tablet 20 mg PO AMHS 08/20/22 08/12/23 History cholecalciferol (vitamin D3) 25 25 mcg PO QAM 08/20/22 08/12/23 History mcg (1,000 unit) capsule (Vitamin D3) isosorbide mononitrate 30 mg 30 mg PO QAM 08/20/22 08/12/23 History tablet,extended release 24 hr lorazepam 0.5 mg tablet 0.5 mg PO Q8 PRN Anxiety 08/20/22 08/12/23 History tramadol 100 mg tablet 100 mg PO Q8 PRN .MOD-SEVERE PAIN 08/20/22 08/12/23 History warfarin 5 mg tablet 2.5 mg PO MOWEFR@1600 08/20/22 08/12/23 History ferrous sulfate 325 mg (65 mg 325 mg PO QAM 01/12/23 08/12/23 History iron) tablet acetaminophen 300 mg-codeine 30 mg 1 tab PO Q6 PRN Moderate Pain 07/15/23 08/12/23 History tablet (Scale Score 5-6) fluticasone propionate 115 2 puff inhalation AMHS 07/15/23 08/12/23 History mcg-salmeterol 21 mcg/actuation HFA inhaler (Advair HFA) metoprolol succinate 25 mg 25 mg PO QAM 07/15/23 08/12/23 History tablet,extended release 24 hr omeprazole 20 mg capsule,delayed 20 mg PO AMHS 07/15/23 08/12/23 History release potassium chloride 10 mEq 10 meq PO AMHS 07/15/23 08/12/23 History capsule,extended release solifenacin 10 mg tablet 10 mg PO QAM 07/15/23 08/12/23 History warfarin 5 mg tablet 5 mg PO SUTUTHSA 07/15/23 08/12/23 History furosemide 20 mg tablet (Lasix) 40 mg PO BID #30 tabs 07/23/23 08/12/23 Rx miconazole nitrate 2 % topical 1 applic EXT BID #28 grams 07/23/23 08/12/23 Rx cream montelukast 10 mg tablet 10 mg PO HS #30 tabs 07/23/23 08/12/23 Rx umeclidinium 62.5 mcg/actuation 1 inh inhalation DAILY #30 ea 07/23/23 08/12/23 Rx blister powder for inhalation (Incruse Ellipta) Past Med/Surg History Medical History Anemia Anticoagulated on Coumadin Anxiety and depression Chronic pain on daily narcotics (tramadol PRN) Chronic respiratory failure with hypoxia Congestive heart failure follows with [facility] cardiology (Patricia banks) COPD (chronic obstructive pulmonary disease) Degenerative disc disease Dementia "very early stages" Alert and oriented x3. granddaughter is the caregiver of patient. Diarrhea started about 1 year ago -- will come and go. Encounter for pre-operative examination History of COVID-19 Spring 2020. treated at [facility] inpatient. symptoms included: sob, cough, desat uration 84-87%, congestion, headache, fatigue. no ventilator at the time. no current problems. History of stroke "embolic stroke, underlying PFO" total of 9 strokes -> last stroke ~6+years ago. damaged urinary nerve and mild left sided weakness. Hypertension Morbid obesity On home oxygen therapy continuous 3lpm via n/c. (will increase to 4lpm via n/c if needed) Osteoarthritis Paroxysmal A-fib feels her heart race at times. Peripheral neuropathy Post traumatic stress disorder Sleep apnea mild RUFINA (dx in ) no machine currently -- pt to have another sleep study february 2023. Submucosal lesion of stomach Noted on EGD 11/06/20 Urinary incontinence Surgical History H/O colonoscopy H/O esophagogastroduodenoscopy History of cardiac cath [facility] - "long time ago" -- pt unsure of details. History of cataract surgery bilateral Hx of lumpectomy left breast (benign) Status post cholecystectomy Status post hernia repair Right inguinal Status post hysterectomy MERT with BSO Family History Grandmother (Maternal) FHx: bladder cancer Father FHx: stroke Other Heart disease No family history of adverse response to anesthesia Social History Smoking Status: Former smoker Tobacco Type: Cigarettes Second Hand Exposure: No; Do You Dip or Chew Tobacco: No; Hx Alcohol Use: No Hx Substance Use: No Preferred Language: Irish Communication Ability: Effective Certified Wellness Program Manager Required: No Beliefs That Will Affect Care: None marital status: / Current Living Situation: Alone Current Living Situation Comment: Granddaughter is the caregiver. Comes M-F 8am-4pm. Other Information That Helps Us Care for You: No Feels Safe at Home: Yes Safety Concerns: Feels Safe At This Time Assistive Devices: Denture - Upper, Glasses, Oxygen - Continuous, Walker and Wheelchair Review of Systems Review of Systems: ROS per HPI, all other systems reviewed and negative Physical Exam Physical Exam: Please refer to Dr. Blood's addendum for physical exma. Results & Data Results & Data Vital Signs (Past 12 Hours) Vital Signs Temp Pulse Pulse Resp BP BP Pulse Ox 08/12/23 19:13 37.0 C 93 H 17 107/57 L 100 08/12/23 19:00 92 H 20 79/56 L 98 08/12/23 18:57 37.0 C 93 H 21 93/54 L 100 08/12/23 18:46 37.0 C 93 H 20 93/54 L 100 08/12/23 18:16 36.8 C 98 H 22 91/52 L 100 08/12/23 18:01 36.8 C 101 H 24 86/51 L 96 08/12/23 17:45 36.7 C 101 H 24 92/53 L 100 08/12/23 17:17 08/12/23 17:17 103 H 28 H 71/25 L 88 L 08/12/23 16:50 106 H 08/12/23 16:29 36.4 C L 107 H 22 87/62 L 96 O2 Del Method O2 Flow Rate 08/12/23 19:13 5 08/12/23 19:00 Room Air 08/12/23 18:57 5 08/12/23 18:46 6 08/12/23 18:16 08/12/23 18:01 6 08/12/23 17:45 6 08/12/23 17:17 Nasal Cannula 08/12/23 17:17 Nasal Cannula 5 08/12/23 16:50 08/12/23 16:29 Nasal Cannula 4 Laboratory Results Short CBC 08/12/23 Range/Units 16:38 WBC 11.99 H (4.8-10.8) K/ul Hgb 3.9 L* (12.0-16.0) g/dl Hct 13.8 L* (37.0-47.0) % Plt Count 673 H (130-400) K/uL BMP 08/12/23 16:38 Sodium 136 Potassium 3.0 L Chloride 93 L Carbon Dioxide 30 BUN 24 H Creatinine 0.98 Glucose 220 H Calcium 8.0 L Cardiac Enzymes 08/12/23 Range/Units 16:38 Total Creatine Kinase 311 H (26-192) U/L Liver Function 08/12/23 Range/Units 16:38 Total Bilirubin 0.4 (0.2-1.0) mg/dl AST 25 (13-39) U/L ALT 18 (7-52) U/L Alkaline Phosphatase 86 (34-104) U/L Albumin 3.3 L (3.4-5.0) gm/dl Urine 08/12/23 Range/Units 17:30 Urine Color Yellow Urine Appearance Clear (Clear) Urine pH 5.5 (4.5-7.5) Ur Specific [place] 1.021 (1.000-1.030) Urine Protein Negative (Negative) Urine Glucose (UA) Negative (Negative) Diagnostic Findings Abdomen/Pelvis CT 08/12/23 16:49 CT abd pelvis IV con only CLINICAL HISTORY: weak, SOB, pain, on coumadin TECHNIQUE: Helical axial images of the abdomen and pelvis were obtained and displayed. Automated dose lowering techniques and/or adjustment according to patient size were utilized for this exam. This exam was performed with intravenous contrast. COMPARISON: Comparison is made to CT abdomen pelvis 12/27/2021 FINDINGS: Lower chest: No acute abnormality. Liver: Unremarkable. No focal lesions are seen. Gallbladder and biliary tree: Patient is status post cholecystectomy. No intra- or extrahepatic biliary ductal dilation. Pancreas: Fatty replacement of the pancreas is seen. Spleen: Unremarkable. Adrenals: Adrenal nodule is unchanged. Kidneys and ureters: Unremarkable. Bladder: Unremarkable. Reproductive organs: Patient is status post hysterectomy. Bowel: The appendix is normal. Lymph nodes Retroperitoneal: Unremarkable. Pelvic: Subcentimeter right common iliac node is noted. Mesenteric: Unremarkable. Peritoneum: Normal. Vessels: Atherosclerotic calcifications are seen. Abdominal wall: Degenerative Bones: Unremarkable. IMPRESSION: No acute abnormalities are seen. Status post cholecystectomy. Normal appendix. ACT 112: Negative or not required by law. Electronically signed by: Joesph Hoyt M.D. 08/12/2023 5:[address] 08/12/23 16:49 CT chest diagnostic w con CLINICAL HISTORY: sob, hypoxia, CP, on coumadin TECHNIQUE: Multidetector row helical CT of the chest was performed with intravenous contrast. Coronal and sagittal reformations were obtained. Automated dose lowering techniques and/or adjustment according to patient size were utilized for this exam. Comparison: Comparison is made to CT chest 09/16/2015 FINDINGS: Lungs and pleura: Atelectasis versus scarring is seen in the dependent portions of the lungs. Heart and pericardium: Heart size is normal. No pericardial effusion. Vessels: Mild atherosclerotic changes in the aorta and coronary arteries. No evidence of pulmonary embolus within the limits of a nondedicated exam. Mediastinum and jaylen: Unremarkable. Chest wall and lower neck: Unremarkable. Abdomen: Unremarkable. Bones: Unremarkable. IMPRESSION: No acute abnormalities are seen to explain chest pain and hypoxia. Likely mild interstitial lung disease. ACT 112: Negative or not required by law. Electronically signed by: Joesph Hoyt M.D. 08/12/2023 5:[address] 08/12/23 16:50 CT head/brain wo con CLINICAL HISTORY: headache Technique: Contiguous axial CT images of the head were acquired from the base of the skull to the vertex without intravenous contrast administration. Images were viewed in brain, subdural and bone windows. Automated dose lowering techniques and/or adjustment according to patient size were utilized for this exam. Comparison: Comparison is made to CT head 08/20/2022 Findings: The ventricles, basal cisterns, and cerebral sulci are normal. There is no acute intracranial hemorrhage or evidence of acute territorial infarction. Neither mass effect, shift of the midline structures, nor abnormal extra-axial fluid collections are shown. Redemonstration of focal encephalomalacia in the left temporoparietal and right frontal lobes. Imaged portions of the paranasal sinuses and mastoid air cells are clear. The orbits appear normal. There are no acute fractures of the calvaria or scalp swelling. Impression: No acute intracranial hemorrhage, no evidence of acute territorial infarction or other acute intracranial disease process. ACT 112: Negative or not required by law. Electronically signed by: Joesph Hoyt M.D. 08/12/2023 5:25 PM Supervising Physician Co-Signing Physician Notes Patient seen and examined independently. Discussed with your provider. Please refer to my communication note and history and physical examination for further details.
[2023-08-12 20:15] LABS: Fibrinogen 299 mg/dl (184-400); INR 1.1 (0.9-1.1); Prothrombin Time 11.9 Seconds (9.0-12.0)
[2023-08-12] MEDS ORDERED: STAT IV STA (20:23)
[2023-08-12] MEDS ORDERED: MINI B IV ONE (20:45)
[2023-08-12] MEDS ORDERED: DEXTROSE 5% IV ONE (20:45)
[2023-08-12] MEDS ORDERED: CALCIUM GLUCONATE IV ONE (20:45)
[2023-08-12] MEDS ORDERED: ICU Protocol for HYPERglycemia SCH (21:00)
[2023-08-12] MEDS: MONTELUKAST SODIUM 10 MG TABLET PO SCH (21:17)
[2023-08-12] MEDS: MIRTAZAPINE TAB 15 MG TAB PO SCH (21:18)
[2023-08-12] MEDS: busPIRone 5 MG TAB PO SCH (21:19)
[2023-08-12] MEDS: FLUTICASONE/VILANTEROL 100/25MCG 14 PUFFS/INHALER INH SCH (21:27)
[2023-08-12] MEDS: POTASSIUM CHLORIDE / WTR 10 MEQ/100 ML PLCT IV SCH (22:52)
[2023-08-13] MEDS: POTASSIUM CHLORIDE / WTR 10 MEQ/100 ML PLCT IV SCH ×3 (00:07→02:43)
[2023-08-13] MEDS ORDERED: INFLUENZA VIRUS QUADRIVALENT VACCINE (IIV4) 0.5 ML SYR IM ONE (01:04)
[2023-08-13] MEDS: PANTOprazole 40 MG in DEXTROSE 5% MINI-B 100 ML IV SCH ×2 (04:08→08:27)
[2023-08-13 04:56] LABS: Basophils # (auto) 0.03 K/uL (0.00-0.20); Basophils % (auto) 0.4 %; Eosinophils # (auto) 0.07 K/uL (0.00-0.50); Eosinophils % (auto) 0.8 %; Hematocrit (blood only) 25.1 % (37.0-47.0); Immature Granulocytes % (auto) 2.4 %; Lymphocytes # (auto) 1.68 K/uL (1.20-3.40); Lymphocytes % (auto) 20.1 %; Mean Corpuscular Hemoglobin 28.4 pg (25.0-34.0); Mean Corpuscular Hgb Conc 31.9 g/dL (32.0-36.0); Mean Platelet Volume 10.1 fL (9.4-12.4); Monocytes # (auto) 0.93 K/uL (0.11-0.59); Monocytes % (auto) 11.1 %; Neutrophils # (auto) 5.44 K/uL (1.40-6.50); Neutrophils % (auto) 65.2 %; Nucleated RBC # (auto) 0.65 K/uL (0.00-0.12); Nucleated RBC % (auto) 7.8 %; Platelet Count 439 K/uL (130-400); RDW Coefficient of Variation 17.7 % (11.5-14.5); RDW Standard Deviation 53.6 fL (36.4-46.3); Red Blood Count 2.82 M/uL (4.20-5.40); White Blood Count 8.35 K/ul (4.8-10.8)
[2023-08-13 05:12] LABS: Albumin Globulin Ratio 1.3 (0.9-2); Albumin Level 3.2 gm/dl (3.4-5.0); Bilirubin,Total 0.7 mg/dl (0.2-1.0); Calcium 8.1 mg/dl (8.6-10.3); Creatinine Clr Calc Pharmacy 85.6 ml/min; Est GFR (African American) 77.8 ml/min; Est GFR (Non-African American) 67.1 ml/min; Globulin 2.4 gm/dl (2.5-4.0); Phosphorus 3.7 mg/dl (2.5-4.9); Potassium 3.3 mmol/L (3.5-5.1); Total Protein 5.6 gm/dl (6.0-8.3)
[2023-08-13 05:21] LABS: Polychromasia 2+
[2023-08-13 05:24] LABS: Prothrombin Time 11.1 Seconds (9.0-12.0)
[2023-08-13] MEDS: busPIRone 5 MG TAB PO SCH ×2 (07:40→20:17)
[2023-08-13] MEDS: OXYBUTYNIN CHLORIDE XL 5 MG TABCR PO SCH (07:40)
[2023-08-13] MEDS: FLUTICASONE/VILANTEROL 100/25MCG 14 PUFFS/INHALER INH SCH (07:40)
[2023-08-13] MEDS: UMECLIDINIUM BROMIDE 62.5MCG/BLISTER 7 PUFFS/INHALER INH SCH (07:41)
--- NOTE | 2023-08-13 08:01 | Critical Care Progress Note ---
Date of Service August 13, 2023 Assessment & Plan (1) Hypovolemic shock: (2) Acute blood loss anemia: (3) Acute gastrointestinal bleeding: (4) UTI (urinary tract infection): (5) Chronic diastolic CHF (congestive heart failure): (6) Atrial fibrillation: (7) COPD with exacerbation: (8) Chronic respiratory failure: (9) History of CVA (cerebrovascular accident): (10) Morbid obesity: Plan Reason Critically Ill: 63 year old female presenting with hemorrhagic/hypovolemic shock secondary to likely GI bleed in the setting of supratherapeutic INR. Neuro - HX of CVA, chronic pain CAM ICU: NEGATIVE - maintain sleep wake cycles follow for ICU delirium - Chronic pain of left hip- IV Tylenol- could consider further dedicated imaging if worsens - Baseline physical function reportedly as bed bound Cardiac - Hemorrhagic shock, HFpEF, Afib, - Hemorrhagic shock - likely secondary to GI bleed unspecified source s/p 4 units pRBC, 1 FFP - Lactate improving following transfusion - INR now - could re-dose Kcentra if needed - Afib - 25mg metoprolol held for hemodynamically instability - Warfarin currently held - HFpEF- EF in 12/07 with EF >70% diastolic dysfunction, Normal LV and Normal RV TAPSE normal- diurese as hemodynamics allow - home regimen 40mg Lasix BID Respiratory - COPD, Chronic hypoxic respiratory failure, obesity hypoventilation - COPD- continue home inhalers, baseline oxygen requirement 4L - She is with chronically elevated HCO3- and reported as not tolerable of PPV at home GI - Presumed GI Bleed - Presumed UGI bleed with epigastric pain, nausea, and dark tarry stools reported- She has not had any hematemesis, BUN not elevated- no active hemorrhage interpreted on CT abd/pelvis - Transfuse as above- Hemodynamics currently improving, lactate improving, q6 CBC - Continue Protonix infusion - NPO - GI consultation - Previous colonoscopy noted with diverticular disease, polyps and angiodysplastic lesion in the ascending colon RENAL/LYTES - Electrolyte imbalances - ICU electrolyte protocol - [place] to gravity - Placed for accurate ROSE and renal perfusion - remove once stabilized ENDO - No acute needs HEME - Acute blood loss anemia- normocytic normochromic, thrombocytosis - acute on chronic anemia - her baseline HGB ~9; Hbg 9/7= 10.9 - Thrombocytosis- chronic likely secondary to chronic anemia - q6 CBC ID - UTI - with her obesity difficult to ascertain her symptoms- urine is with LE, NIT and 2+ bacteria - Urine culture growing gram negative bacilli - Continue Rocephin pending sensitivities LINES/IV ACCESS - PIV x3 , [place] Continue use of these lines DVT PROPHYLAXIS - SCDS Chemoprophylaxis on hold with anaemia Thank you for allowing us to participate in the care of this patient. Please refer to my attending physician's documentation for any further recommendations. Admission and Anticipated Discharge Date Admission Date: August 12, 2023 Supervising Physician Co-Signing Physician Notes Patient seen and examined. EMR reviewed. Discussed on multidisciplinary rounds and with bedside critical care nurse as well as patient at bedside and with the family practice resident. Agree with assessment plan as noted. Severe anemia likely secondary to GI losses. She has been adequately resuscitated and is pending EGD later today. Disposition and decision regarding Protonix will depend on results of EGD. Her lactate is cleared. She is hemodynamically stable. She is not having any respiratory issues outside of her baseline. Disposition will depend on results of EGD. She does have evidence of a urinary tract infection. Continue Rocephin pending sensitivities. The patient does have obesity hypoventilation syndrome but has been reluctant to use noninvasive positive pressure ventilation in the past. Subjective Pt seen at bedside this morning. Just waking up, still feeling fatigue. Some epigastric pain. Left hip pain. Review of Systems Review of Systems: As per above Physical Exam Physical Exam: Constitutional: well-appearing, no acute distress HEENT: NCAT, no conjunctival injection CV: regular rhythm, no murmur appreciated, extremities well-perfused, no LE edema Resp: scattered wheezing, no rales/rhonchi appreciated, no increased work of breathing GI: soft, nondistended, epigastric tenderness, BS normoactive MSK: no gross deformities appreciated Skin: warm, dry, no rash appreciated Neuro: alert, oriented, no focal neurologic deficit appreciated Results & Data Results & Data Vital Signs (Past 12 Hours) Vital Signs Temp Pulse Pulse Resp BP BP Pulse Ox 08/13/23 07:00 75 14 93/43 L 96 08/13/23 06:00 71 19 96/45 L 96 08/13/23 05:00 76 15 92/47 L 99 08/13/23 04:00 74 15 107/44 L 98 08/13/23 03:00 75 13 87/48 L 94 08/13/23 02:00 75 13 103/44 L 97 08/13/23 02:15 37.0 C 75 22 91/48 L 97 08/13/23 01:15 37.0 C 79 16 89/49 L 97 08/13/23 00:45 37.0 C 83 15 97/47 L 96 08/13/23 00:30 37.0 C 81 16 102/54 L 97 08/13/23 01:00 80 20 90/45 L 96 08/13/23 00:00 84 17 98/52 L 93 08/12/23 19:55 08/12/23 19:55 37.1 C 88 15 100/59 L 97 08/12/23 23:31 37.0 C 83 18 106/58 L 96 08/12/23 23:16 37.0 C 77 15 97/55 L 97 08/12/23 23:00 81 21 106/58 L 93 08/12/23 22:00 79 15 94/41 L 98 08/12/23 21:00 96 H 20 99/57 L 96 08/12/23 20:00 86 12 100/59 L 97 08/12/23 19:56 88 19 94 08/13/23 00:14 37.0 C 86 17 98/52 L 93 08/13/23 00:09 37.0 C 82 16 98/52 L 94 08/12/23 23:45 82 08/12/23 23:01 37.1 C 81 18 76/58 L 94 08/12/23 22:46 37.1 C 77 17 83/42 L 95 08/12/23 22:31 37.1 C 78 19 89/54 L 96 08/12/23 22:16 37.1 C 77 19 82/43 L 98 08/12/23 21:56 37.1 C 80 16 96/40 L 98 08/12/23 20:56 37.1 C 84 18 99/57 L 97 08/12/23 20:26 37.1 C 87 17 118/67 98 08/12/23 20:11 37.1 C 88 21 100/59 L 98 08/12/23 22:45 37.1 C 77 17 89/54 L 96 08/12/23 22:43 37.1 C 77 17 89/54 L 96 08/12/23 19:55 37.1 C 89 20 100/50 L 96 O2 Del Method O2 Flow Rate 08/13/23 07:00 08/13/23 06:00 08/13/23 05:00 08/13/23 04:00 08/13/23 03:00 08/13/23 02:00 08/13/23 02:15 5 08/13/23 01:15 5 08/13/23 00:45 5 08/13/23 00:30 5 08/13/23 01:00 08/13/23 00:00 08/12/23 19:55 Nasal Cannula 5 08/12/23 19:55 Nasal Cannula 5 08/12/23 23:31 5 08/12/23 23:16 5 08/12/23 23:00 08/12/23 22:00 08/12/23 21:00 08/12/23 20:00 08/12/23 19:56 08/13/23 00:14 5 08/13/23 00:09 08/12/23 23:45 08/12/23 23:01 5 08/12/23 22:46 5 08/12/23 22:31 5 08/12/23 22:16 5 08/12/23 21:56 5 08/12/23 20:56 5 08/12/23 20:26 5 08/12/23 20:11 5 08/12/23 22:45 5 08/12/23 22:43 5 08/12/23 19:55 5 Resident Activity Tracking Resident Involvement: Resident Care Provided Care Provided: Adult Hospital Medicine (ICU) (8) Chronic respiratory failure Respiratory failure complication: hypoxia Qualified Code(s): J96.11 - Chronic respiratory failure with hypoxia
[2023-08-13] MEDS: ICU Protocol for HYPERglycemia SCH ×2 (08:26→12:32)
--- NOTE | 2023-08-13 08:48 | Gastrointestinal Consultation ---
Date of Consultation August 13, 2023 Assessment & Plan (1) Acute blood loss anemia: (2) Melena: Pt is a 63 yo female w severe anemia, melena in setting of Coumadin use for Afib and supratherapuetic INR few days ago. Hx of gastritis, submucosal gastric mass suspected to be lipoma, non bleeding AVM in ascending colon. - UTI management per primary team - IVF support - PPI gtt - NPO - EGD with Dr. Leger today - Monitor blood ct and transfuse prn - Avoid NSAIDs Supervising Physician Co-Signing Physician Notes I performed a history and physical examination of the patient today, including specifically on physical exam - soft abdomen. I have discussed the patient's management with the advanced practitioner. Please refer to the nurse practitioner's note for the documented findings and plan of care. EGD Patient was explained in detail regarding risks, benefits, limitations and alternatives of the above endoscopic procedure. Risks of intravenous sedation used for procedure were also explained. Risks include, but not limited to perforation, bleeding, infection, respiratory distress, cardiac arrest and . Patient is also aware about the possibility of missed lesion. Patient's questions were answered. The patient verbalized understanding the information and agreed to undergo the procedure. History of Present Illness Reason for Consultation: UGI bleed Requesting Physician: Dr. Mohit Singh Attending Physician: Dr. Argenis Leger History of Present Illness Pt is a 63 yo female w PMHx of COPD on O2, Afib on Coumadin, CHF, RUFINA, obestity, stroke who presented w weakness and noted to be severely anemic. Hgb noted to be 3.9, baseline 11. INR in outpt setting was >9 , three days ago but on admission it had decreased to 2.2. She was given 4U PRBC transfusion w good response of b lood ct. Hgb now 8, INR reversed now to 1. She was c/o dark stools earlier this week. Denies associated fever, chills, abd pain, n/v. She denies ingesting iron supplements or Peptobismol. Denies tobacco, ETOH, NSAIDs. CT abd/pelvis w IV contrast unremarkable. Colonoscopy 01/2023 - diverticulosis, int hemorrhoids, colon polyps, angiodysplastic lesion in colon EGD 2019 - gastric submucosal mass (suspected lipoma), gastritis Allergies Allergy/AdvReac Type Severity Reaction Status Date / Time aspirin Allergy Unknown TAKES Verified 08/13/23 10:10 COUMADIN salicylates AdvReac Unknown ?DUE TO Verified 08/13/23 10:10 COUMADIN? Home Medications Medication Instructions Recorded Confirmed Type albuterol sulfate 5 mg/mL(0.5 %) 2.5 mg inhalation DIRECTED PRN 08/20/22 08/12/23 History solution for nebulization Shortness Of Breath Or Wheezing albuterol sulfate 90 mcg/actuation 2 puff inhalation QID PRN sob 08/20/22 08/12/23 History aerosol inhaler baclofen 10 mg tablet 10 mg PO TID PRN Muscle Pain 08/20/22 08/12/23 History buspirone 10 mg tablet 20 mg PO AMHS 08/20/22 08/12/23 History cholecalciferol (vitamin D3) 25 25 mcg PO QAM 08/20/22 08/12/23 History mcg (1,000 unit) capsule (Vitamin D3) isosorbide mononitrate 30 mg 30 mg PO QAM 08/20/22 08/12/23 History tablet,extended release 24 hr lorazepam 0.5 mg tablet 0.5 mg PO Q8 PRN Anxiety 08/20/22 08/12/23 History tramadol 100 mg tablet 100 mg PO Q8 PRN .MOD-SEVERE PAIN 08/20/22 08/12/23 History warfarin 5 mg tablet 2.5 mg PO MOWEFR@1600 08/20/22 08/12/23 History ferrous sulfate 325 mg (65 mg 325 mg PO QAM 01/12/23 08/12/23 History iron) tablet acetaminophen 300 mg-codeine 30 mg 1 tab PO Q6 PRN Moderate Pain 07/15/23 08/12/23 History tablet (Scale Score 5-6) fluticasone propionate 115 2 puff inhalation AMHS 07/15/23 08/12/23 History mcg-salmeterol 21 mcg/actuation HFA inhaler (Advair HFA) metoprolol succinate 25 mg 25 mg PO QAM 07/15/23 08/12/23 History tablet,extended release 24 hr omeprazole 20 mg capsule,delayed 20 mg PO AMHS 07/15/23 08/12/23 History release potassium chloride 10 mEq 10 meq PO AMHS 07/15/23 08/12/23 History capsule,extended release solifenacin 10 mg tablet 10 mg PO QAM 07/15/23 08/12/23 History warfarin 5 mg tablet 5 mg PO SUTUTHSA 07/15/23 08/12/23 History furosemide 20 mg tablet (Lasix) 40 mg PO BID #30 tabs 07/23/23 08/12/23 Rx miconazole nitrate 2 % topical 1 applic EXT BID #28 grams 07/23/23 08/12/23 Rx cream montelukast 10 mg tablet 10 mg PO HS #30 tabs 07/23/23 08/12/23 Rx umeclidinium 62.5 mcg/actuation 1 inh inhalation DAILY #30 ea 07/23/23 08/12/23 Rx blister powder for inhalation (Incruse Ellipta) Patient History Medical History Anemia Anticoagulated on Coumadin Anxiety and depression Chronic pain on daily narcotics (tramadol PRN) Chronic respiratory failure with hypoxia Congestive heart failure follows with [facility] cardiology ([facility]) COPD (chronic obstructive pulmonary disease) Degenerative disc disease Dementia "very early stages" Alert and oriented x3. granddaughter is the caregiver of patient. Diarrhea started about 1 year ago -- will come and go. Encounter for pre-operative examination History of COVID-19 Spring 2020. treated at [facility] inpatient. symptoms included: sob, cough, desaturation 84-87%, congestion, headache, fatigue. no ventilator at the time. no current problems. History of stroke "embolic stroke, underlying PFO" total of 9 strokes -> last stroke ~6+years ago. damaged urinary nerve and mild left sided weakness. Hypertension Morbid obesity On home oxygen therapy continuous 3lpm via n/c. (will increase to 4lpm via n/c if needed) Osteoarthritis Paroxysmal A-fib feels her heart race at times. Peripheral neuropathy Post traumatic stress disorder Sleep apnea mild RUFINA (dx in ) no machine currently -- pt to have another sleep study february 2023. Submucosal lesion of stomach Noted on EGD 11/06/20 Urinary incontinence Surgical History H/O colonoscopy H/O esophagogastroduodenoscopy History of cardiac cath [facility] [place] - "long time ago" -- pt unsure of details. History of cataract surgery bilateral Hx of lumpectomy left breast (benign) Status post cholecystectomy Status post hernia repair Right inguinal Status post hysterectomy MERT with BSO Family History Grandmother (Maternal) FHx: bladder cancer Father FHx: stroke Other Heart disease No family history of adverse response to anesthesia Social History Smoking Status: Former smoker Tobacco Type: Cigarettes Second Hand Exposure: No; Do You Dip or Chew Tobacco: No; Hx Alcohol Use: No Hx Substance Use: No Preferred Language: Canadian Communication Ability: Effective Loading Checker Required: No Beliefs That Will Affect Care: None marital status: / Current Living Situation: Alone Current Living Situation Comment: Granddaughter is the caregiver. Comes M-F 8am-4pm. Other Information That Helps Us Care for You: No Feels Safe at Home: Yes Safety Concerns: Feels Safe At This Time Assistive Devices: Denture - Upper, Glasses, Oxygen - Continuous, Walker and Wheelchair Review of Systems Review of Systems: All systems reviewed & are unremarkable except as noted in HPI & below Physical Exam Constitutional: WD/WN, vitals as above well groomed, cooperative and comfortable Eyes: PERRL, conjunctivae normal, anicteric sclerae ENMT: external ear and nose normal, oropharynx normal Respiratory: wheezing, diminished bilateral lower lobes. Cardiovascular: RRR, no murmur, no edema Gastrointestinal (Abdomen): normal bowel sounds, soft, nontender, no hepatosplenomegaly Skin: no rashes, warm and dry no jaundice Psychiatric: A+Ox3, euthymic affect Lymphatic: no lymphedema Results & Data Vital Signs (Past 12 Hours) Vital Signs Temp Pulse Resp BP Pulse Ox O2 Del Method O2 Flow Rate 08/13/23 08:00 80 16 111/64 95 Nasal Cannula 4 08/13/23 07:46 71 21 08/13/23 07:31 72 19 94 08/13/23 06:45 77 13 94 08/13/23 08:31 Nasal Cannula 4 08/13/23 08:00 80 08/13/23 07:00 75 14 93/43 L 96 08/13/23 06:00 71 19 96/45 L 96 08/13/23 05:00 76 15 92/47 L 99 08/13/23 04:00 74 15 107/44 L 98 08/13/23 03:00 75 13 87/48 L 94 08/13/23 02:00 75 13 103/44 L 97 08/13/23 02:15 37.0 C 75 22 91/48 L 97 08/13/23 01:15 37.0 C 79 16 89/49 L 97 08/13/23 00:45 37.0 C 83 15 97/47 L 96 08/13/23 00:30 37.0 C 81 16 102/54 L 97 08/13/23 01:00 80 20 90/45 L 96 08/13/23 00:00 84 17 98/52 L 93 08/12/23 23:31 37.0 C 83 18 106/58 L 96 08/12/23 23:16 37.0 C 77 15 97/55 L 97 08/12/23 23:00 81 21 106/58 L 93 08/12/23 22:00 79 15 94/41 L 98 08/12/23 21:00 96 H 20 99/57 L 96 08/13/23 00:14 37.0 C 86 17 98/52 L 93 08/13/23 00:09 37.0 C 82 16 98/52 L 94 08/12/23 23:45 82 08/12/23 23:01 37.1 C 81 18 76/58 L 94 08/12/23 22:46 37.1 C 77 17 83/42 L 95 08/12/23 22:31 37.1 C 78 19 89/54 L 96 5 08/12/23 22:16 37.1 C 77 19 82/43 L 98 5 08/12/23 21:56 37.1 C 80 16 96/40 L 98 5 08/12/23 20:56 37.1 C 84 18 99/57 L 97 5 08/12/23 22:45 37.1 C 77 17 89/54 L 96 5 08/12/23 22:43 37.1 C 77 17 89/54 L 96 5
[2023-08-13 09:26] LABS: iSTAT Blood Urea Nitrogen 21 mg/dl (7-18); iSTAT Carbon Dioxide 30 mmol/L (24-31); iSTAT Chloride 89 mmol/L (101-112); iSTAT Creatinine 1.1 mg/dl (0.6-1.3); iSTAT Glucose 221 mg/dl (70-99); iSTAT Hematocrit < 15 % (37-47); iSTAT Ionized Calcium 1.06 mmol/l (1.12-1.32); iSTAT Sodium 134 mmol/L (135-144)
--- NOTE | 2023-08-13 09:56 | Anesthesiology Consultation ---
Date of Service August 13, 2023 Assessment & Plan (1) Encounter for pre-operative examination: Chart Review Chart Review: Acceptable Risk for Surgery, Patient NOT seen in Pre Admission Testing and business mail entry clerk initiated Consults Requested none Proposed Anesthesia Anesthesia Type: MAC History Surgery Operation Date: 08/13/23 17:25 Proposed Procedures p Esophagogastroduodenoscopy Dr Leger - Argenis Leger MD Height/Weight Height: 5 ft 2 in Weight: 139 kg Allergies Allergy/AdvReac Type Severity Reaction Status Date / Time aspirin Allergy Unknown TAKES Verified 08/12/23 19:00 COUMADIN salicylates AdvReac Unknown ?DUE TO Verified 08/12/23 19:00 COUMADIN? Medications Home Medications Medication Instructions Recorded Confirmed Last Taken albuterol sulfate 5 mg/mL(0.5 %) 2.5 mg inhalation DIRECTED PRN 08/20/22 08/12/23 Unknown solution for nebulization Shortness Of Breath Or Wheezing albuterol sulfate 90 mcg/actuation 2 puff inhalation QID PRN sob 08/20/22 08/12/23 01/13/23 06:00 aerosol inhaler baclofen 10 mg tablet 10 mg PO TID PRN Muscle Pain 08/20/22 08/12/23 01/12/23 buspirone 10 mg tablet 20 mg PO AMHS 08/20/22 08/12/23 01/13/23 06:00 cholecalciferol (vitamin D3) 25 25 mcg PO QAM 08/20/22 08/12/23 01/12/23 mcg (1,000 unit) capsule (Vitamin D3) isosorbide mononitrate 30 mg 30 mg PO QAM 08/20/22 08/12/23 01/13/23 06:00 tablet,extended release 24 hr lorazepam 0.5 mg tablet 0.5 mg PO Q8 PRN Anxiety 08/20/22 08/12/23 01/12/23 tramadol 100 mg tablet 100 mg PO Q8 PRN .MOD-SEVERE PAIN 08/20/22 08/12/23 01/12/23 warfarin 5 mg tablet 2.5 mg PO MOWEFR@1600 08/20/22 08/12/23 01/07/23 ferrous sulfate 325 mg (65 mg 325 mg PO QAM 01/12/23 08/12/23 01/12/23 iron) tablet acetaminophen 300 mg-codeine 30 mg 1 tab PO Q6 PRN Moderate Pain 07/15/23 08/12/23 Unknown tablet (Scale Score 5-6) fluticasone propionate 115 2 puff inhalation AMHS 07/15/23 08/12/23 Unknown mcg-salmeterol 21 mcg/actuation HFA inhaler (Advair HFA) metoprolol succinate 25 mg 25 mg PO QAM 07/15/23 08/12/23 Unknown tablet,extended release 24 hr omeprazole 20 mg capsule,delayed 20 mg PO AMHS 07/15/23 08/12/23 Unknown release potassium chloride 10 mEq 10 meq PO AMHS 07/15/23 08/12/23 Unknown capsule,extended release solifenacin 10 mg tablet 10 mg PO QAM 07/15/23 08/12/23 Unknown warfarin 5 mg tablet 5 mg PO SUTUTHSA 07/15/23 08/12/23 Unknown furosemide 20 mg tablet (Lasix) 40 mg PO BID #30 tabs 07/23/23 08/12/23 01/12/23 miconazole nitrate 2 % topical 1 applic EXT BID #28 grams 07/23/23 08/12/23 Unknown cream montelukast 10 mg tablet 10 mg PO HS #30 tabs 07/23/23 08/12/23 Unknown umeclidinium 62.5 mcg/actuation 1 inh inhalation DAILY #30 ea 07/23/23 08/12/23 Unknown blister powder for inhalation (Incruse Ellipta) Active Medications Generic Name Dose Route Start Last Admin Trade Name Freq PRN Reason Stop Dose Admin Buspirone HCl 20 mg 08/12/23 21:00 08/13/23 07:40 Buspirone 5 Mg Tab PO 09/11/23 20:59 20 mg AMHS MARY Administration Fluticasone/Vilanterol 1 puffs 08/12/23 20:30 08/13/23 07:40 Fluticasone/Vilanterol 100/25mcg 14 Puffs/Inhaler INH 09/11/23 20:29 1 puffs DAILY MARY Administration Pantoprazole Sodium 40 mg/ 100 mls @ 20 mls/hr 08/12/23 17:45 08/13/23 08:27 Dextrose IV 09/11/23 17:44 8 mg/hr Q5H MARY 20 mls/hr Administration 8 MG/HR Mirtazapine 30 mg 08/12/23 21:00 08/12/23 21:18 Mirtazapine Tab 15 Mg Tab PO 09/11/23 20:59 30 mg HS MARY Administration Miscellaneous 1 each 08/13/23 07:30 08/13/23 08:26 Icu Protocol For Hyperglycemia N/A 08/15/23 07:29 1 each ACHS MARY Administration Montelukast Sodium 10 mg 08/12/23 21:00 08/12/23 21:17 Montelukast Sodium 10 Mg Tablet PO 09/11/23 20:59 10 mg HS MARY Administration Oxybutynin Chloride 10 mg 08/13/23 09:00 08/13/23 07:40 Oxybutynin Chloride Xl 5 Mg Tabcr PO 09/12/23 08:59 10 mg QAM MARY Administration Protocol Umeclidinium [place] 1 puffs 08/13/23 09:00 08/13/23 07:41 Umeclidinium [place] 62.5mcg/Blister 7 Puffs/Inhaler INH 09/12/23 08:59 1 puffs DAILY MARY Administration Past Medical History Medical History Anemia Anticoagulated on Coumadin Anxiety and depression Chronic pain on daily narcotics (tramadol PRN) Chronic respiratory failure with hypoxia Congestive heart failure follows with [facility] cardiology ([facility]) COPD (chronic obstructive pulmonary disease) Degenerative disc disease Dementia "very early stages" Alert and oriented x3. granddaughter is the caregiver of patient. Diarrhea started about 1 year ago -- will come and go. Encounter for pre-operative examination History of COVID-19 Spring 2020. treated at [facility] inpatient. symptoms included: sob, cough, desaturation 84-87%, congestion, headache, fatigue. no ventilator at the time. no current problems. History of stroke "embolic stroke, underlying PFO" total of 9 strokes -> last stroke ~6+years ago. damaged urinary nerve and mild left sided weakness. Hypertension Morbid obesity On home oxygen therapy continuous 3lpm via n/c. (will increase to 4lpm via n/c if needed) Osteoarthritis Paroxysmal A-fib feels her heart race at times. Peripheral neuropathy Post traumatic stress disorder Sleep apnea mild RUFINA (dx in ) no machine currently -- pt to have another sleep study february 2023. Submucosal lesion of stomach Noted on EGD 11/06/20 Urinary incontinence Past Family History Family History Grandmother (Maternal) FHx: bladder cancer Father FHx: stroke Other Heart disease No family history of adverse response to anesthesia Past Surgical History Surgical History H/O colonoscopy H/O esophagogastroduodenoscopy History of cardiac cath [facility] - "long time ago" -- pt unsure of details. History of cataract surgery bilateral Hx of lumpectomy left breast (benign) Status post cholecystectomy Status post hernia repair Right inguinal Status post hysterectomy MERT with BSO Social History Smoking Status: Former smoker tobacco type: cigarettes Do You Dip or Chew Tobacco: No Hx Alcohol Use: No Hx Substance Use: No substance use type: does not use Physical Exam Vital Signs Last Vital Signs Temp 37.0 C 08/13/23 02:15 Pulse 80 08/13/23 08:00 Resp 16 08/13/23 08:00 BP 111/64 08/13/23 08:00 Pulse Ox 95 08/13/23 08:00 O2 Del Method Nasal Cannula 08/13/23 08:31 O2 Flow Rate 4 08/13/23 08:31 Testing Laboratory Results 08/13/23 03:50 08/13/23 03:50 PT 11.1 Seconds (9.0-12.0) 08/13/23 03:50 INR 1.0 (0.9-1.1) 08/13/23 03:50 Urine Color Yellow 08/12/23 17:30 Urine Appearance Clear (Clear) 08/12/23 17:30 Urine pH 5.5 (4.5-7.5) 08/12/23 17:30 Ur Specific [place] 1.021 (1.000-1.030) 08/12/23 17:30 Urine Protein Negative (Negative) 08/12/23 17:30 Urine Glucose (UA) Negative (Negative) 08/12/23 17:30 Urine Ketones Negative (Negative) 08/12/23 17:30 Urine Nitrite Positive (Negative) A 08/12/23 17:30 Ur Leukocyte Esterase 1+ (Negative) H 08/12/23 17:30 Urine WBC (Auto) 10-30 /hpf (0-5) H 08/12/23 17:30 Urine RBC (Auto) 0-4 /hpf (0-4) 08/12/23 17:30 U Hyaline Cast (Auto) 1-5 /lpf (0-5) 08/12/23 17:30 U Epithel Cells (Auto) 10-20 /lpf (0-5) H 08/12/23 17:30 Urine Bacteria (Auto) 2+ (Negative) H 08/12/23 17:30 Blood Type O Negative 08/12/23 16:49 Antibody Screen NEGATIVE 08/12/23 16:49 08/12/23 17:30 Urine Culture - Preliminary Urine,Clean Catch Gram negative bacilli 08/13/23 08/12/23 08:04 16:44 POC Glucose 130 H POC Glucose (other) 221 H Electrocardiogram Date: 08/12/2312-Aug-2023 16:28:13 [facility]-EDSTAT ROUTINE RETRIEVAL Sinus tachycardia Low voltage QRS Nonspecific ST and T wave abnormality Abnormal ECG When compared with ECG of 21-JUL-2023 09:28, ST now depressed in Anterior leads T wave inversion now evident in Anterior leads 25mm/s10mm/[id number] 243CID: 22Referred by: REFERRED SELF Unconfirmed Vent. rate 106 BPM NJ interval 130 ms QRS duration 76 ms QT/QTc 368/488 ms P Echocardiogram Date: 07/21/23 EF: 55-60 LV Function: normal RWMA: + none Other Findings: + LVH (mild) and + diastolic dysfunction (grade 1)
[2023-08-13] MEDS ORDERED: ALBUT/IPRATROP 3MG/0.5MG NEB 3 ML VIAL INH STA (10:23)
[2023-08-13] MEDS ORDERED: ALBUT/IPRATROP 3MG/0.5MG NEB 3 ML VIAL ONE (10:23)
[2023-08-13] MEDS ORDERED: LIDOCAINE 2% 2 ML VIAL/AMP(20MG/ML) INFIL ONE (10:51)
[2023-08-13] MEDS ORDERED: PROPOFOL IV EMULSION 10 MG/ML 20 ML VIAL IV ONE (10:51)
--- NOTE | 2023-08-13 11:12 | GI REPORT ---
Patient Name: Kimberly Kendall Procedure Date: 08/13/2023 10:52 AM Date of : 1960 Admit Type: Inpatient Age: 63 Gender: Female Attending MD: Argenis Leger MD, Procedure: Upper GI endoscopy Providers: Argenis Leger MD Referring MD: Mohit Singh Md Indications: Acute post hemorrhagic anemia Medicines: Propofol per Anesthesia Complications: No immediate complications. Estimated Blood Loss: Estimated blood loss: none. Procedure: Pre-Anesthesia Assessment: - Prior to the procedure, a History and Physical was performed, and patient medications, allergies and sensitivities were reviewed. The patient's tolerance of previous anesthesia was reviewed. - The risks and benefits of the procedure and the sedation options and risks were discussed with the patient. All questions were answered and informed consent was obtained. - Patient identification and proposed procedure were verified prior to the procedure by the physician and the nurse. The procedure was verified in the procedure room. - Pre-procedure physical examination revealed no contraindications to sedation. After obtaining informed consent, the endoscope was passed under direct vision. Throughout the procedure, the patient's blood pressure, pulse, and oxygen saturations were monitored continuously. The Scope was introduced through the mouth, and advanced to the second part of duodenum. The upper GI endoscopy was accomplished without difficulty. The patient tolerated the procedure well. Findings: The examined esophagus was normal. The entire examined stomach was normal. There was a large submucosal nodule likely a lipoma in the gastric body. The duodenal bulb and second portion of the duodenum were normal. Impression: - Normal esophagus. - Normal stomach. 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 - Normal duodenal bulb and second portion of the duodenum. - No specimens collected. Recommendation: - Return patient to hospital hopper for ongoing care. - EUS electively as OP to confirm the lipoma. - Monitor H/H. - If any signs of rebleeding then please obtain a bleeding scan to localize the source. Argenis Leger MD 08/13/2023 11:11:58 AM This report has been signed electronically. Note Initiated On: 08/13/2023 10:52 AM Number of Addenda: 0 I attest to the content of the Intraoperative Record and orders documented therein, exceptions below {[id number]}
--- NOTE | 2023-08-13 11:13 | Billing Data ---
Date of Service August 13, 2023 Coding Level of Care Code 12760 SUB INP/OBS CARE MIN
[2023-08-13] MEDS: MAGNESIUM SULFATE / D5W 1 GM/100 ML BAG IV SCH ×2 (12:35→13:41)
[2023-08-13] MEDS: POTASSIUM CHLORIDE CRTAB 20 MEQ TABCR PO SCH ×2 (12:35→15:24)
[2023-08-13] MEDS: ACETAMINOPHEN 500 MG TAB PO PRN ×2 (12:40→18:26)
[2023-08-13 12:54] LABS: Basophils # (auto) 0.04 K/uL (0.00-0.20); Basophils % (auto) 0.5 %; Eosinophils # (auto) 0.08 K/uL (0.00-0.50); Hematocrit (blood only) 25.9 % (37.0-47.0); Hemoglobin 8.3 g/dl (12.0-16.0); Immature Granulocytes # (auto) 0.18 K/uL (0.01-0.20); Immature Granulocytes % (auto) 2.3 %; Lymphocytes # (auto) 1.35 K/uL (1.20-3.40); Lymphocytes % (auto) 17.3 %; Mean Corpuscular Hemoglobin 28.5 pg (25.0-34.0); Mean Platelet Volume 9.9 fL (9.4-12.4); Monocytes # (auto) 0.88 K/uL (0.11-0.59); Monocytes % (auto) 11.3 %; Neutrophils # (auto) 5.26 K/uL (1.40-6.50); Neutrophils % (auto) 67.6 %; Nucleated RBC # (auto) 0.61 K/uL (0.00-0.12); Nucleated RBC % (auto) 7.8 %; Platelet Count 416 K/uL (130-400); RDW Coefficient of Variation 17.7 % (11.5-14.5); RDW Standard Deviation 54.7 fL (36.4-46.3); Red Blood Count 2.91 M/uL (4.20-5.40); White Blood Count 7.79 K/ul (4.8-10.8)
--- NOTE | 2023-08-13 12:56 | Anesthesiology Progress Note ---
Date of Service August 13, 2023 Anesthesia Post Procedure Vital Signs Vital Signs: Temp Pulse Pulse Resp BP BP BP 08/13/23 12:00 82 18 08/13/23 12:00 105/59 L 08/13/23 11:53 82 18 08/13/23 09:30 95/65 L 08/13/23 09:30 78 15 08/13/23 09:00 80 18 08/13/23 09:00 95/69 L 08/13/23 08:30 106/88 08/13/23 08:30 80 19 08/13/23 12:00 80 08/13/23 11:45 82 24 94/48 L 08/13/23 11:30 80 24 92/45 L 08/13/23 11:15 83 24 100/58 L 08/13/23 10:30 80 18 08/13/23 10:12 36.6 C 85 22 119/63 08/13/23 08:00 80 16 111/64 08/13/23 07:46 71 21 08/13/23 07:31 72 19 08/13/23 06:45 77 13 08/13/23 08:31 08/13/23 08:00 80 08/13/23 07:00 75 14 93/43 L 08/13/23 06:00 71 19 96/45 L 08/13/23 05:00 76 15 92/47 L 08/13/23 04:00 74 15 107/44 L 08/13/23 03:00 75 13 87/48 L 08/13/23 02:00 75 13 103/44 L 08/13/23 02:15 37.0 C 75 22 91/48 L 08/13/23 01:15 37.0 C 79 16 89/49 L 08/13/23 00:45 37.0 C 83 15 97/47 L 08/13/23 00:30 37.0 C 81 16 102/54 L 08/13/23 01:00 80 20 90/45 L 08/13/23 00:00 84 17 98/52 L 08/12/23 19:55 08/12/23 19:55 37.1 C 88 15 100/59 L 08/12/23 23:31 37.0 C 83 18 106/58 L 08/12/23 23:16 37.0 C 77 15 97/55 L 08/12/23 23:00 81 21 106/58 L 08/12/23 22:00 79 15 94/41 L 08/12/23 21:00 96 H 20 99/57 L 08/12/23 20:00 86 12 100/59 L 08/12/23 19:56 88 19 08/13/23 00:14 37.0 C 86 17 98/52 L 08/13/23 00:09 37.0 C 82 16 98/52 L 08/12/23 23:45 82 08/12/23 23:01 37.1 C 81 18 76/58 L 08/12/23 22:46 37.1 C 77 17 83/42 L 08/12/23 22:31 37.1 C 78 19 89/54 L 08/12/23 22:16 37.1 C 77 19 82/43 L 08/12/23 21:56 37.1 C 80 16 96/40 L 08/12/23 20:56 37.1 C 84 18 99/57 L 08/12/23 20:26 37.1 C 87 17 118/67 08/12/23 20:11 37.1 C 88 21 100/59 L 08/12/23 22:45 37.1 C 77 17 89/54 L 08/12/23 22:43 37.1 C 77 17 89/54 L 08/12/23 19:55 37.1 C 89 20 100/50 L 08/12/23 19:50 37.1 C 89 20 100/50 L 08/12/23 19:13 37.1 C 89 20 100/50 L 08/12/23 19:13 37.0 C 93 H 17 107/57 L 08/12/23 19:00 92 H 20 79/56 L 08/12/23 18:57 37.0 C 93 H 21 93/54 L 08/12/23 18:46 37.0 C 93 H 20 93/54 L 08/12/23 18:16 36.8 C 98 H 22 91/52 L 08/12/23 18:01 36.8 C 101 H 24 86/51 L 08/12/23 17:45 36.7 C 101 H 24 92/53 L 08/12/23 17:17 08/12/23 17:17 103 H 28 H 71/25 L 08/12/23 16:50 106 H 08/12/23 16:29 36.4 C L 107 H 22 87/62 L Pulse Ox O2 Del Method O2 Flow Rate 08/13/23 12:00 94 08/13/23 12:00 08/13/23 11:53 08/13/23 09:30 08/13/23 09:30 93 08/13/23 09:00 95 08/13/23 09:00 08/13/23 08:30 08/13/23 08:30 95 08/13/23 12:00 08/13/23 11:45 97 Nasal Cannula 4 08/13/23 11:30 98 Nasal Cannula 4 08/13/23 11:15 93 Nasal Cannula 4 08/13/23 10:30 94 Nasal Cannula 4 08/13/23 10:12 93 Nasal Cannula 4 08/13/23 08:00 95 Nasal Cannula 4 08/13/23 07:46 08/13/23 07:31 94 08/13/23 06:45 94 08/13/23 08:31 Nasal Cannula 4 08/13/23 08:00 08/13/23 07:00 96 08/13/23 06:00 96 08/13/23 05:00 99 08/13/23 04:00 98 08/13/23 03:00 94 08/13/23 02:00 97 08/13/23 02:15 97 5 08/13/23 01:15 97 5 08/13/23 00:45 96 5 08/13/23 00:30 97 5 08/13/23 01:00 96 08/13/23 00:00 93 08/12/23 19:55 Nasal Cannula 5 08/12/23 19:55 97 Nasal Cannula 5 08/12/23 23:31 96 5 08/12/23 23:16 97 5 08/12/23 23:00 93 08/12/23 22:00 98 08/12/23 21:00 96 08/12/23 20:00 97 08/12/23 19:56 94 08/13/23 00:14 93 5 08/13/23 00:09 94 08/12/23 23:45 08/12/23 23:01 94 5 08/12/23 22:46 95 5 08/12/23 22:31 96 5 08/12/23 22:16 98 5 08/12/23 21:56 98 5 08/12/23 20:56 97 5 08/12/23 20:26 98 5 08/12/23 20:11 98 5 08/12/23 22:45 96 5 08/12/23 22:43 96 5 08/12/23 19:55 96 5 08/12/23 19:50 96 5 08/12/23 19:13 96 08/12/23 19:13 100 5 08/12/23 19:00 98 Room Air 08/12/23 18:57 100 5 08/12/23 18:46 100 6 08/12/23 18:16 100 08/12/23 18:01 96 6 08/12/23 17:45 100 6 08/12/23 17:17 Nasal Cannula 08/12/23 17:17 88 L Nasal Cannula 5 08/12/23 16:50 08/12/23 16:29 96 Nasal Cannula 4 Pain Intensity Head: Pain Intensity: 3 Transfer of Care Handoff Completed per policy Notes Mental Status: alert / awake / arousable and participated in evaluation Patient Amnestic to Procedure: Yes Nausea / Vomiting: adequately controlled Pain: adequately controlled Airway Patency, RR, SpO2: stable & adequate BP & HR: stable & adequate Hydration State: stable & adequate Anesthetic Complications: no major complications apparent
[2023-08-13 13:19] LABS: Polychromasia 2+
[2023-08-13 14:54] LABS: Basophils # (auto) 0.02 K/uL (0.00-0.20); Basophils % (auto) 0.3 %; Eosinophils # (auto) 0.11 K/uL (0.00-0.50); Eosinophils % (auto) 1.5 %; Hematocrit (blood only) 25.8 % (37.0-47.0); Hemoglobin 8.2 g/dl (12.0-16.0); Immature Granulocytes # (auto) 0.16 K/uL (0.01-0.20); Immature Granulocytes % (auto) 2.2 %; Lymphocytes # (auto) 1.01 K/uL (1.20-3.40); Lymphocytes % (auto) 13.9 %; Mean Corpuscular Hemoglobin 28.3 pg (25.0-34.0); Mean Corpuscular Hgb Conc 31.8 g/dL (32.0-36.0); Mean Platelet Volume 9.5 fL (9.4-12.4); Monocytes # (auto) 0.85 K/uL (0.11-0.59); Monocytes % (auto) 11.7 %; Neutrophils # (auto) 5.14 K/uL (1.40-6.50); Neutrophils % (auto) 70.4 %; Nucleated RBC # (auto) 0.58 K/uL (0.00-0.12); Platelet Count 414 K/uL (130-400); RDW Coefficient of Variation 17.8 % (11.5-14.5); RDW Standard Deviation 55.2 fL (36.4-46.3); White Blood Count 7.29 K/ul (4.8-10.8)
[2023-08-13] MEDS ORDERED: traMADol HCL 50 MG TABLET PO PRN (15:04)
--- NOTE | 2023-08-13 15:07 | Hospitalist Progress Note ---
Date of Service August 13, 2023 Assessment & Plan (1) Hypovolemic shock: (2) Anemia: (3) Acute gastrointestinal bleeding: (4) Anticoagulant long-term use: Plan: Initially admitted to ICU -> stable for PCU now Patient presenting from home with reports of generalized weakness and dark tarry stools. In the ED, found to be hypotensive and Hgb 3.9, INR 2.2 Recent hx of elev. INR as outpt S/p vitamin K, Kcentra, desmopressin in the ED Transfuse PRBC, FFP, per ED and ICU PPI drip GI consulted - pt underwent EGD today (08/13/23) - Findings: The examined esophagus was normal. The entire examined stomach was normal. There was a large submucosal nodule likely a lipoma in the gastric body. The duodenal bulb and second portion of the duodenum were normal. Impression: - Normal esophagus. - Normal stomach. 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 - Normal duodenal bulb and second portion of the duodenum. - No specimens collected. Recommendation: - Return patient to hospital hopper for ongoing care. - EUS electively as OP to confirm the lipoma. - Monitor H/H. - If any signs of rebleeding then please obtain a bleeding scan to localize the source. (5) Elevated lactic acid level: (6) UTI (urinary tract infection): Plan: Lactate 5.9 --> 2.4 Likely secondary to hypoperfusion from profound anemia and hypotension. Possible sepsis given positive UA, mild leukocytosis, WBC 11.9. Currently afebrile. Transfuse PRBC, trend lactate, IV ceftriaxone for UTI urine cultx - posit for GNB, cont. ceftriaxone (7) COPD (chronic obstructive pulmonary disease): (8) Chronic respiratory failure with hypoxia: Plan: No signs of acute exacerbation Continue home inhalers Saturating well on chronic 4 liters of oxygen (9) Chronic diastolic CHF (congestive heart failure): Plan: Appears compensated Consider IV Lasix with PRBC transfusion (10) Paroxysmal A-fib: Plan: Rate controlled on metoprolol Anticoagulated on Coumadin -holding due to profound anemia, hypovolemic shock, GI bleeding (11) Depression, unspecified: (12) Anxiety disorder, unspecified: Plan: Chronic, stable Continue home meds DVT PROPHYLAXIS SCDs due to anemia, GI bleeding Admission and Anticipated Discharge Date Admission Date: August 12, 2023 Subjective Pt seen in follow up of anemia, GI bleed, recent supratherap. INR Hgb in ED 3.9, underwent blood transfusion - received vit. K, desmopressin, kcentra Pt has hx of chronic resp. failure, on suppl. O2 at baseline Underwent EGD today - w/o signs of active bleeding Laying in bed in NAD, reports abdomen feels more distended/ bloated and uncomfortable. Hgb stable, above 8 No fever, chills, chest pain, increased shortness of breath from baseline UA also c/w UTI Review of Systems Review of Systems: All systems reviewed & are unremarkable except as noted in Subjective Physical Exam Physical Exam: Constitutional: Morbidly obese F in NAD Respiratory: Occasional wheezes heard. Cardiovascular: RRR, no murmur, no edema Chest: normal inspection of chest Abdomen: normal bowel sounds, soft, nontender Musculoskeletal: moves extremities Skin: no rashes, warm and dry normal turgor Neurologic: PERRL, EOMI, speech fluent, answers appropriately, moves extremities Psychiatric: A+Ox3, euthymic affect Results & Data Results & Data Vital Signs (Past 12 Hours) Vital Signs Temp Pulse Pulse Resp BP BP Pulse Ox 08/13/23 12:00 82 18 94 08/13/23 12:00 105/59 L 08/13/23 11:53 82 18 08/13/23 09:30 95/65 L 08/13/23 09:30 78 15 93 08/13/23 09:00 80 18 95 08/13/23 09:00 95/69 L 08/13/23 08:30 106/88 08/13/23 08:30 80 19 95 08/13/23 12:00 80 08/13/23 11:45 82 24 94/48 L 97 08/13/23 11:30 80 24 92/45 L 98 08/13/23 11:15 83 24 100/58 L 93 08/13/23 10:30 80 18 94 08/13/23 10:12 36.6 C 85 22 119/63 93 08/13/23 08:00 80 16 111/64 95 08/13/23 07:46 71 21 08/13/23 07:31 72 19 94 08/13/23 06:45 77 13 94 08/13/23 08:31 09/29/23 08:00 80 08/13/23 07:00 75 14 93/43 L 96 08/13/23 06:00 71 19 96/45 L 96 08/13/23 05:00 76 15 92/47 L 99 08/13/23 04:00 74 15 107/44 L 98 O2 Del Method O2 Flow Rate 08/13/23 12:00 08/13/23 12:00 08/13/23 11:53 08/13/23 09:30 08/13/23 09:30 08/13/23 09:00 08/13/23 09:00 08/13/23 08:30 08/13/23 08:30 08/13/23 12:00 08/13/23 11:45 Nasal Cannula 4 08/13/23 11:30 Nasal Cannula 4 08/13/23 11:15 Nasal Cannula 4 08/13/23 10:30 Nasal Cannula 4 08/13/23 10:12 Nasal Cannula 4 08/13/23 08:00 Nasal Cannula 4 08/13/23 07:46 08/13/23 07:31 08/13/23 06:45 08/13/23 08:31 Nasal Cannula 4 08/13/23 08:00 08/13/23 07:00 08/13/23 06:00 08/13/23 05:00 08/13/23 04:00 Laboratory Results 08/13/23 08/13/23 08/13/23 Range/Units 14:34 12:30 12:16 WBC 7.29 7.79 (4.8-10.8) K/ul RBC 2.90 L 2.91 L (4.20-5.40) M/uL Hgb 8.2 L 8.3 L (12.0-16.0) g/dl POC Hgb Hct 25.8 L 25.9 L (37.0-47.0) % POC Hct (37-47) % MCV 89.0 89.0 (80.0-100.0) fL MCH 28.3 28.5 (25.0-34.0) pg MCHC 31.8 L 32.0 (32.0-36.0) g/dL RDW Std Deviation 55.2 H 54.7 H (36.4-46.3) fL RDW Coeff of Ursula 17.8 H 17.7 H (11.5-14.5) % Plt Count 414 H 416 H (130-400) K/uL MPV 9.5 9.9 (9.4-12.4) fL Immature Gran % (Auto) 2.2 2.3 % Neut % (Auto) 70.4 67.6 % Lymph % (Auto) 13.9 17.3 % [place] % (Auto) 11.7 11.3 % Eos % (Auto) 1.5 1.0 % Baso % (Auto) 0.3 0.5 % Neut # (Auto) 5.14 5.26 (1.40-6.50) K/uL Lymph # (Auto) 1.01 L 1.35 (1.20-3.40) K/uL [place] # (Auto) 0.85 H 0.88 H (0.11-0.59) K/uL Eos # (Auto) 0.11 0.08 (0.00-0.50) K/uL Baso # (Auto) 0.02 0.04 (0.00-0.20) K/uL Immature Gran # (Auto) 0.16 0.18 (0.01-0.20) K/uL Absolute Nucleated RBC 0.58 H 0.61 H (0.00-0.12) K/uL Nucleated RBC % (auto) 8.0 7.8 % Polychromasia 2+ Hypochromasia Anisocytosis Target Cells Stomatocytes PT (9.0-12.0) Seconds INR (0.9-1.1) Fibrinogen (184-400) mg/dl POC Sodium (135-144) mmol/L Sodium (136-145) mmol/L POC Potassium (3.3-5.0) mmol/L Potassium (3.5-5.1) mmol/L POC Chloride (101-112) mmol/L Chloride (98-107) mmol/L Carbon Dioxide (21-32) mmol/L POC Total CO2 (24-31) mmol/L Anion Gap (3-11) POC Anion Gap (16-25) mmol/L POC BUN (7-18) mg/dl BUN (6-23) mg/dl Creatinine (0.6-1.2) mg/dl POC Creatinine (0.6-1.3) mg/dl Est Cr Clr Drug Dosing ml/min Est GFR ( Amer) ml/min Est GFR (Non-Af Amer) ml/min BUN/Creatinine Ratio (10-20) Glucose (70-99(Fasting)) mg/dl POC Glucose 136 H (70-99) mg/dl POC Glucose (other) (70-99) mg/dl Lactate (0.4-2.0) mmol/L Calcium (8.6-10.3) mg/dl POC Ioniz Calcium Saman (1.12-1.32) mmol/l Ionized Calcium (1.12-1.32) mmol/L Phosphorus (2.5-4.9) mg/dl Magnesium (1.7-2.4) mg/dl Total Bilirubin (0.2-1.0) mg/dl AST (13-39) U/L ALT (7-52) U/L Alkaline Phosphatase (34-104) U/L Total Creatine Kinase (26-192) U/L Troponin I High Sens (0-14) pg/ml Total Protein (6.0-8.3) gm/dl Albumin (3.4-5.0) gm/dl Globulin (2.5-4.0) gm/dl Albumin/Globulin Ratio (0.9-2) TSH (0.300-4.500) uIu/ml Urine Color Urine Appearance (Clear) Urine pH (4.5-7.5) Ur Specific [place] (1.000-1.030) Urine Protein (Negative) Urine Glucose (UA) (Negative) Urine Ketones (Negative) Urine Blood (Negative) Urine Nitrite (Negative) Urine Bilirubin (Negative) Urine Urobilinogen (Negative) Ur Leukocyte Esterase (Negative) Urine WBC (Auto) (0-5) /hpf Urine RBC (Auto) (0-4) /hpf U Hyaline Cast (Auto) (0-5) /lpf U Epithel Cells (Auto) (0-5) /lpf Urine Bacteria (Auto) (Negative) Nasal Screen MRSA (PCR) POC Stool Occult Blood (Negative) SARS-CoV-2, RNA, NAAT (NEGATIVE) Blood Type Antibody Screen Crossmatch 08/13/23 08/13/23 08/13/23 Range/Units 08:04 07:03 03:50 WBC (4.8-10.8) K/ul RBC (4.20-5.40) M/uL Hgb (12.0-16.0) g/dl POC Hgb Hct (37.0-47.0) % POC Hct (37-47) % MCV (80.0-100.0) fL MCH (25.0-34.0) pg MCHC (32.0-36.0) g/dL RDW Std Deviation (36.4-46.3) fL RDW Coeff of Ursula (11.5-14.5) % Plt Count (130-400) K/uL MPV (9.4-12.4) fL Immature Gran % (Auto) % Neut % (Auto) % Lymph % (Auto) % [place] % (Auto) % Eos % (Auto) % Baso % (Auto) % Neut # (Auto) (1.40-6.50) K/uL Lymph # (Auto) (1.20-3.40) K/uL [place] # (Auto) (0.11-0.59) K/uL Eos # (Auto) (0.00-0.50) K/uL Baso # (Auto) (0.00-0.20) K/uL Immature Gran # (Auto) (0.01-0.20) K/uL Absolute Nucleated RBC (0.00-0.12) K/uL Nucleated RBC % (auto) % Polychromasia Hypochromasia Anisocytosis Target Cells Stomatocytes PT (9.0-12.0) Seconds INR (0.9-1.1) Fibrinogen (184-400) mg/dl POC Sodium (135-144) mmol/L Sodium (136-145) mmol/L POC Potassium (3.3-5.0) mmol/L Potassium (3.5-5.1) mmol/L POC Chloride (101-112) mmol/L Chloride (98-107) mmol/L Carbon Dioxide (21-32) mmol/L POC Total CO2 (24-31) mmol/L Anion Gap (3-11) POC Anion Gap (16-25) mmol/L POC BUN (7-18) mg/dl BUN (6-23) mg/dl Creatinine (0.6-1.2) mg/dl POC Creatinine (0.6-1.3) mg/dl Est Cr Clr Drug Dosing ml/min Est GFR ( Amer) ml/min Est GFR (Non-Af Amer) ml/min BUN/Creatinine Ratio (10-20) Glucose (70-99(Fasting)) mg/dl POC Glucose 130 H (70-99) mg/dl POC Glucose (other) (70-99) mg/dl Lactate (0.4-2.0) mmol/L Calcium (8.6-10.3) mg/dl POC Ioniz Calcium Saman (1.12-1.32) mmol/l Ionized Calcium 1.09 L (1.12-1.32) mmol/L Phosphorus (2.5-4.9) mg/dl Magnesium (1.7-2.4) mg/dl Total Bilirubin (0.2-1.0) mg/dl AST (13-39) U/L ALT (7-52) U/L Alkaline Phosphatase (34-104) U/L Total Creatine Kinase (26-192) U/L Troponin I High Sens (0-14) pg/ml Total Protein (6.0-8.3) gm/dl Albumin (3.4-5.0) gm/dl Globulin (2.5-4.0) gm/dl Albumin/Globulin Ratio (0.9-2) TSH (0.300-4.500) uIu/ml Urine Color Urine Appearance (Clear) Urine pH (4.5-7.5) Ur Specific [place] (1.000-1.030) Urine Protein (Negative) Urine Glucose (UA) (Negative) Urine Ketones (Negative) Urine Blood (Negative) Urine Nitrite (Negative) Urine Bilirubin (Negative) Urine Urobilinogen (Negative) Ur Leukocyte Esterase (Negative) Urine WBC (Auto) (0-5) /hpf Urine RBC (Auto) (0-4) /hpf U Hyaline Cast (Auto) (0-5) /lpf U Epithel Cells (Auto) (0-5) /lpf Urine Bacteria (Auto) (Negative) Nasal Screen MRSA (PCR) Negative POC Stool Occult Blood (Negative) SARS-CoV-2, RNA, NAAT (NEGATIVE) Blood Type Antibody Screen Crossmatch 08/13/23 08/13/23 08/13/23 Range/Units 03:50 03:50 03:50 WBC 8.35 (4.8-10.8) K/ul RBC 2.82 L (4.20-5.40) M/uL Hgb 8.0 L (12.0-16.0) g/dl POC Hgb Hct 25.1 L (37.0-47.0) % POC Hct (37-47) % MCV 89.0 (80.0-100.0) fL MCH 28.4 (25.0-34.0) pg MCHC 31.9 L D (32.0-36.0) g/dL RDW Std Deviation 53.6 H (36.4-46.3) fL RDW Coeff of Ursula 17.7 H (11.5-14.5) % Plt Count 439 H (130-400) K/uL MPV 10.1 (9.4-12.4) fL Immature Gran % (Auto) 2.4 % Neut % (Auto) 65.2 % Lymph % (Auto) 20.1 % [place] % (Auto) 11.1 % Eos % (Auto) 0.8 % Baso % (Auto) 0.4 % Neut # (Auto) 5.44 (1.40-6.50) K/uL Lymph # (Auto) 1.68 (1.20-3.40) K/uL [place] # (Auto) 0.93 H (0.11-0.59) K/uL Eos # (Auto) 0.07 (0.00-0.50) K/uL Baso # (Auto) 0.03 (0.00-0.20) K/uL Immature Gran # (Auto) 0.20 (0.01-0.20) K/uL Absolute Nucleated RBC 0.65 H (0.00-0.12) K/uL Nucleated RBC % (auto) 7.8 % Polychromasia 2+ Hypochromasia Anisocytosis Target Cells Stomatocytes PT 11.1 (9.0-12.0) Seconds INR 1.0 (0.9-1.1) Fibrinogen (184-400) mg/dl POC Sodium (135-144) mmol/L Sodium 136 (136-145) mmol/L POC Potassium (3.3-5.0) mmol/L Potassium 3.3 L (3.5-5.1) mmol/L POC Chloride (101-112) mmol/L Chloride 95 L (98-107) mmol/L Carbon Dioxide 34 H (21-32) mmol/L POC Total CO2 (24-31) mmol/L Anion Gap 7 (3-11) POC Anion Gap (16-25) mmol/L POC BUN (7-18) mg/dl BUN 20 (6-23) mg/dl Creatinine 0.91 (0.6-1.2) mg/dl POC Creatinine (0.6-1.3) mg/dl Est Cr Clr Drug Dosing 85.6 ml/min Est GFR ( Amer) 77.8 ml/min Est GFR (Non-Af Amer) 67.1 ml/min BUN/Creatinine Ratio 22.0 H (10-20) Glucose 121 H (70-99(Fasting)) mg/dl POC Glucose (70-99) mg/dl POC Glucose (other) (70-99) mg/dl Lactate (0.4-2.0) mmol/L Calcium 8.1 L (8.6-10.3) mg/dl POC Ioniz Calcium Saman (1.12-1.32) mmol/l Ionized Calcium (1.12-1.32) mmol/L Phosphorus 3.7 (2.5-4.9) mg/dl Magnesium 2.0 (1.7-2.4) mg/dl Total Bilirubin 0.7 (0.2-1.0) mg/dl AST 26 (13-39) U/L ALT 17 (7-52) U/L Alkaline Phosphatase 81 (34-104) U/L Total Creatine Kinase (26-192) U/L Troponin I High Sens (0-14) pg/ml Total Protein 5.6 L (6.0-8.3) gm/dl Albumin 3.2 L (3.4-5.0) gm/dl Globulin 2.4 L (2.5-4.0) gm/dl Albumin/Globulin Ratio 1.3 (0.9-2) TSH (0.300-4.500) uIu/ml Urine Color Urine Appearance (Clear) Urine pH (4.5-7.5) Ur Specific [place] (1.000-1.030) Urine Protein (Negative) Urine Glucose (UA) (Negative) Urine Ketones (Negative) Urine Blood (Negative) Urine Nitrite (Negative) Urine Bilirubin (Negative) Urine Urobilinogen (Negative) Ur Leukocyte Esterase (Negative) Urine WBC (Auto) (0-5) /hpf Urine RBC (Auto) (0-4) /hpf U Hyaline Cast (Auto) (0-5) /lpf U Epithel Cells (Auto) (0-5) /lpf Urine Bacteria (Auto) (Negative) Nasal Screen MRSA (PCR) POC Stool Occult Blood (Negative) SARS-CoV-2, RNA, NAAT (NEGATIVE) Blood Type Antibody Screen Crossmatch 08/13/23 08/12/23 08/12/23 Range/Units 01:00 22:42 21:06 WBC (4.8-10.8) K/ul RBC (4.20-5.40) M/uL Hgb (12.0-16.0) g/dl POC Hgb Hct (37.0-47.0) % POC Hct (37-47) % MCV (80.0-100.0) fL MCH (25.0-34.0) pg MCHC (32.0-36.0) g/dL RDW Std Deviation (36.4-46.3) fL RDW Coeff of Ursula (11.5-14.5) % Plt Count (130-400) K/uL MPV (9.4-12.4) fL Immature Gran % (Auto) % Neut % (Auto) % Lymph % (Auto) % [place] % (Auto) % Eos % (Auto) % Baso % (Auto) % Neut # (Auto) (1.40-6.50) K/uL Lymph # (Auto) (1.20-3.40) K/uL [place] # (Auto) (0.11-0.59) K/uL Eos # (Auto) (0.00-0.50) K/uL Baso # (Auto) (0.00-0.20) K/uL Immature Gran # (Auto) (0.01-0.20) K/uL Absolute Nucleated RBC (0.00-0.12) K/uL Nucleated RBC % (auto) % Polychromasia Hypochromasia Anisocytosis Target Cells Stomatocytes PT (9.0-12.0) Seconds INR (0.9-1.1) Fibrinogen (184-400) mg/dl POC Sodium (135-144) mmol/L Sodium (136-145) mmol/L POC Potassium (3.3-5.0) mmol/L Potassium (3.5-5.1) mmol/L POC Chloride (101-112) mmol/L Chloride (98-107) mmol/L Carbon Dioxide (21-32) mmol/L POC Total CO2 (24-31) mmol/L Anion Gap (3-11) POC Anion Gap (16-25) mmol/L POC BUN (7-18) mg/dl BUN (6-23) mg/dl Creatinine (0.6-1.2) mg/dl POC Creatinine (0.6-1.3) mg/dl Est Cr Clr Drug Dosing ml/min Est GFR ( Amer) ml/min Est GFR (Non-Af Amer) ml/min BUN/Creatinine Ratio (10-20) Glucose (70-99(Fasting)) mg/dl POC Glucose 142 H (70-99) mg/dl POC Glucose (other) (70-99) mg/dl Lactate 1.0 (0.4-2.0) mmol/L Calcium (8.6-10.3) mg/dl POC Ioniz Calcium Saman (1.12-1.32) mmol/l Ionized Calcium (1.12-1.32) mmol/L Phosphorus (2.5-4.9) mg/dl Magnesium (1.7-2.4) mg/dl Total Bilirubin (0.2-1.0) mg/dl AST (13-39) U/L ALT (7-52) U/L Alkaline Phosphatase (34-104) U/L Total Creatine Kinase (26-192) U/L Troponin I High Sens (0-14) pg/ml Total Protein (6.0-8.3) gm/dl Albumin (3.4-5.0) gm/dl Globulin (2.5-4.0) gm/dl Albumin/Globulin Ratio (0.9-2) TSH (0.300-4.500) uIu/ml Urine Color Urine Appearance (Clear) Urine pH (4.5-7.5) Ur Specific [place] (1.000-1.030) Urine Protein (Negative) Urine Glucose (UA) (Negative) Urine Ketones (Negative) Urine Blood (Negative) Urine Nitrite (Negative) Urine Bilirubin (Negative) Urine Urobilinogen (Negative) Ur Leukocyte Esterase (Negative) Urine WBC (Auto) (0-5) /hpf Urine RBC (Auto) (0-4) /hpf U Hyaline Cast (Auto) (0-5) /lpf U Epithel Cells (Auto) (0-5) /lpf Urine Bacteria (Auto) (Negative) Nasal Screen MRSA (PCR) Cancelled POC Stool Occult Blood (Negative) SARS-CoV-2, RNA, NAAT (NEGATIVE) Blood Type Antibody Screen Crossmatch 08/12/23 08/12/23 08/12/23 Range/Units 19:55 19:55 19:55 WBC (4.8-10.8) K/ul RBC (4.20-5.40) M/uL Hgb 6.0 L* (12.0-16.0) g/dl POC Hgb Hct (37.0-47.0) % POC Hct (37-47) % MCV (80.0-100.0) fL MCH (25.0-34.0) pg MCHC (32.0-36.0) g/dL RDW Std Deviation (36.4-46.3) fL RDW Coeff of Ursula (11.5-14.5) % Plt Count (130-400) K/uL MPV (9.4-12.4) fL Immature Gran % (Auto) % Neut % (Auto) % Lymph % (Auto) % [place] % (Auto) % Eos % (Auto) % Baso % (Auto) % Neut # (Auto) (1.40-6.50) K/uL Lymph # (Auto) (1.20-3.40) K/uL [place] # (Auto) (0.11-0.59) K/uL Eos # (Auto) (0.00-0.50) K/uL Baso # (Auto) (0.00-0.20) K/uL Immature Gran # (Auto) (0.01-0.20) K/uL Absolute Nucleated RBC (0.00-0.12) K/uL Nucleated RBC % (auto) % Polychromasia Hypochromasia Anisocytosis Target Cells Stomatocytes PT 11.9 (9.0-12.0) Seconds INR 1.1 (0.9-1.1) Fibrinogen 299 (184-400) mg/dl POC Sodium (135-144) mmol/L Sodium (136-145) mmol/L POC Potassium (3.3-5.0) mmol/L Potassium (3.5-5.1) mmol/L POC Chloride (101-112) mmol/L Chloride (98-107) mmol/L Carbon Dioxide (21-32) mmol/L POC Total CO2 (24-31) mmol/L Anion Gap (3-11) POC Anion Gap (16-25) mmol/L POC BUN (7-18) mg/dl BUN (6-23) mg/dl Creatinine (0.6-1.2) mg/dl POC Creatinine (0.6-1.3) mg/dl Est Cr Clr Drug Dosing ml/min Est GFR ( Amer) ml/min Est GFR (Non-Af Amer) ml/min BUN/Creatinine Ratio (10-20) Glucose (70-99(Fasting)) mg/dl POC Glucose (70-99) mg/dl POC Glucose (other) (70-99) mg/dl Lactate (0.4-2.0) mmol/L Calcium (8.6-10.3) mg/dl POC Ioniz Calcium Saman (1.12-1.32) mmol/l Ionized Calcium 0.97 L (1.12-1.32) mmol/L Phosphorus (2.5-4.9) mg/dl Magnesium (1.7-2.4) mg/dl Total Bilirubin (0.2-1.0) mg/dl AST (13-39) U/L ALT (7-52) U/L Alkaline Phosphatase (34-104) U/L Total Creatine Kinase (26-192) U/L Troponin I High Sens (0-14) pg/ml Total Protein (6.0-8.3) gm/dl Albumin (3.4-5.0) gm/dl Globulin (2.5-4.0) gm/dl Albumin/Globulin Ratio (0.9-2) TSH (0.300-4.500) uIu/ml Urine Color Urine Appearance (Clear) Urine pH (4.5-7.5) Ur Specific [place] (1.000-1.030) Urine Protein (Negative) Urine Glucose (UA) (Negative) Urine Ketones (Negative) Urine Blood (Negative) Urine Nitrite (Negative) Urine Bilirubin (Negative) Urine Urobilinogen (Negative) Ur Leukocyte Esterase (Negative) Urine WBC (Auto) (0-5) /hpf Urine RBC (Auto) (0-4) /hpf U Hyaline Cast (Auto) (0-5) /lpf U Epithel Cells (Auto) (0-5) /lpf Urine Bacteria (Auto) (Negative) Nasal Screen MRSA (PCR) POC Stool Occult Blood (Negative) SARS-CoV-2, RNA, NAAT (NEGATIVE) Blood Type Antibody Screen Crossmatch 08/12/23 08/12/23 08/12/23 Range/Units 19:20 17:50 17:30 WBC (4.8-10.8) K/ul RBC (4.20-5.40) M/uL Hgb (12.0-16.0) g/dl POC Hgb Hct (37.0-47.0) % POC Hct (37-47) % MCV (80.0-100.0) fL MCH (25.0-34.0) pg MCHC (32.0-36.0) g/dL RDW Std Deviation (36.4-46.3) fL RDW Coeff of Ursula (11.5-14.5) % Plt Count (130-400) K/uL MPV (9.4-12.4) fL Immature Gran % (Auto) % Neut % (Auto) % Lymph % (Auto) % [place] % (Auto) % Eos % (Auto) % Baso % (Auto) % Neut # (Auto) (1.40-6.50) K/uL Lymph # (Auto) (1.20-3.40) K/uL [place] # (Auto) (0.11-0.59) K/uL Eos # (Auto) (0.00-0.50) K/uL Baso # (Auto) (0.00-0.20) K/uL Immature Gran # (Auto) (0.01-0.20) K/uL Absolute Nucleated RBC (0.00-0.12) K/uL Nucleated RBC % (auto) % Polychromasia Hypochromasia Anisocytosis Target Cells Stomatocytes PT (9.0-12.0) Seconds INR (0.9-1.1) Fibrinogen (184-400) mg/dl POC Sodium (135-144) mmol/L Sodium (136-145) mmol/L POC Potassium (3.3-5.0) mmol/L Potassium (3.5-5.1) mmol/L POC Chloride (101-112) mmol/L Chloride (98-107) mmol/L Carbon Dioxide (21-32) mmol/L POC Total CO2 (24-31) mmol/L Anion Gap (3-11) POC Anion Gap (16-25) mmol/L POC BUN (7-18) mg/dl BUN (6-23) mg/dl Creatinine (0.6-1.2) mg/dl POC Creatinine (0.6-1.3) mg/dl Est Cr Clr Drug Dosing ml/min Est GFR ( Amer) ml/min Est GFR (Non-Af Amer) ml/min BUN/Creatinine Ratio (10-20) Glucose (70-99(Fasting)) mg/dl POC Glucose (70-99) mg/dl POC Glucose (other) (70-99) mg/dl Lactate 2.4 H* (0.4-2.0) mmol/L Calcium (8.6-10.3) mg/dl POC Ioniz Calcium Sam[place] (1.12-1.32) mmol/l Ionized Calcium (1.12-1.32) mmol/L Phosphorus (2.5-4.9) mg/dl Magnesium (1.7-2.4) mg/dl Total Bilirubin (0.2-1.0) mg/dl AST (13-39) U/L ALT (7-52) U/L Alkaline Phosphatase (34-104) U/L Total Creatine Kinase (26-192) U/L Troponin I High Sens (0-14) pg/ml Total Protein (6.0-8.3) gm/dl Albumin (3.4-5.0) gm/dl Globulin (2.5-4.0) gm/dl Albumin/Globulin Ratio (0.9-2) TSH (0.300-4.500) uIu/ml Urine Color Yellow Urine Appearance Clear (Clear) Urine pH 5.5 (4.5-7.5) Ur Specific [place] 1.021 (1.000-1.030) Urine Protein Negative (Negative) Urine Glucose (UA) Negative (Negative) Urine Ketones Negative (Negative) Urine Blood Negative (Negative) Urine Nitrite Positive A (Negative) Urine Bilirubin Negative (Negative) Urine Urobilinogen Negative (Negative) Ur Leukocyte Esterase 1+ H (Negative) Urine WBC (Auto) 10-30 H (0-5) /hpf Urine RBC (Auto) 0-4 (0-4) /hpf U Hyaline Cast (Auto) 1-5 (0-5) /lpf U Epithel Cells (Auto) 10-20 H (0-5) /lpf Urine Bacteria (Auto) 2+ H (Negative) Nasal Screen MRSA (PCR) POC Stool Occult Blood Positive A (Negative) SARS-CoV-2, RNA, NAAT (NEGATIVE) Blood Type Antibody Screen Crossmatch 08/12/23 08/12/23 08/12/23 Range/Units 17:30 16:55 16:49 WBC (4.8-10.8) K/ul RBC (4.20-5.40) M/uL Hgb (12.0-16.0) g/dl POC Hgb Hct (37.0-47.0) % POC Hct (37-47) % MCV (80.0-100.0) fL MCH (25.0-34.0) pg MCHC (32.0-36.0) g/dL RDW Std Deviation (36.4-46.3) fL RDW Coeff of Ursula (11.5-14.5) % Plt Count (130-400) K/uL MPV (9.4-12.4) fL Immature Gran % (Auto) % Neut % (Auto) % Lymph % (Auto) % [place] % (Auto) % Eos % (Auto) % Baso % (Auto) % Neut # (Auto) (1.40-6.50) K/uL Lymph # (Auto) (1.20-3.40) K/uL [place] # (Auto) (0.11-0.59) K/uL Eos # (Auto) (0.00-0.50) K/uL Baso # (Auto) (0.00-0.20) K/uL Immature Gran # (Auto) (0.01-0.20) K/uL Absolute Nucleated RBC (0.00-0.12) K/uL Nucleated RBC % (auto) % Polychromasia Hypochromasia Anisocytosis Target Cells Stomatocytes PT 22.5 H (9.0-12.0) Seconds INR 2.2 H (0.9-1.1) Fibrinogen (184-400) mg/dl POC Sodium (135-144) mmol/L Sodium (136-145) mmol/L POC Potassium (3.3-5.0) mmol/L Potassium (3.5-5.1) mmol/L POC Chloride (101-112) mmol/L Chloride (98-107) mmol/L Carbon Dioxide (21-32) mmol/L POC Total CO2 (24-31) mmol/L Anion Gap (3-11) POC Anion Gap (16-25) mmol/L POC BUN (7-18) mg/dl BUN (6-23) mg/dl Creatinine (0.6-1.2) mg/dl POC Creatinine (0.6-1.3) mg/dl Est Cr Clr Drug Dosing ml/min Est GFR ( Amer) ml/min Est GFR (Non-Af Amer) ml/min BUN/Creatinine Ratio (10-20) Glucose (70-99(Fasting)) mg/dl POC Glucose (70-99) mg/dl POC Glucose (other) (70-99) mg/dl Lactate 5.9 H* (0.4-2.0) mmol/L Calcium (8.6-10.3) mg/dl POC Ioniz Calcium Saman (1.12-1.32) mmol/l Ionized Calcium (1.12-1.32) mmol/L Phosphorus (2.5-4.9) mg/dl Magnesium (1.7-2.4) mg/dl Total Bilirubin (0.2-1.0) mg/dl AST (13-39) U/L ALT (7-52) U/L Alkaline Phosphatase (34-104) U/L Total Creatine Kinase (26-192) U/L Troponin I High Sens (0-14) pg/ml Total Protein (6.0-8.3) gm/dl Albumin (3.4-5.0) gm/dl Globulin (2.5-4.0) gm/dl Albumin/Globulin Ratio (0.9-2) TSH (0.300-4.500) uIu/ml Urine Color Urine Appearance (Clear) Urine pH (4.5-7.5) Ur Specific [place] (1.000-1.030) Urine Protein (Negative) Urine Glucose (UA) (Negative) Urine Ketones (Negative) Urine Blood (Negative) Urine Nitrite (Negative) Urine Bilirubin (Negative) Urine Urobilinogen (Negative) Ur Leukocyte Esterase (Negative) Urine WBC (Auto) (0-5) /hpf Urine RBC (Auto) (0-4) /hpf U Hyaline Cast (Auto) (0-5) /lpf U Epithel Cells (Auto) (0-5) /lpf Urine Bacteria (Auto) (Negative) Nasal Screen MRSA (PCR) POC Stool Occult Blood (Negative) SARS-CoV-2, RNA, NAAT NEGATIVE (NEGATIVE) Blood Type Antibody Screen Crossmatch 08/12/23 08/12/23 08/12/23 Range/Units 16:49 16:44 16:38 WBC (4.8-10.8) K/ul RBC (4.20-5.40) M/uL Hgb (12.0-16.0) g/dl POC Hgb TNP Hct (37.0-47.0) % POC Hct < 15 L* (37-47) % MCV (80.0-100.0) fL MCH (25.0-34.0) pg MCHC (32.0-36.0) g/dL RDW Std Deviation (36.4-46.3) fL RDW Coeff of Ursula (11.5-14.5) % Plt Count (130-400) K/uL MPV (9.4-12.4) fL Immature Gran % (Auto) % Neut % (Auto) % Lymph % (Auto) % [place] % (Auto) % Eos % (Auto) % Baso % (Auto) % Neut # (Auto) (1.40-6.50) K/uL Lymph # (Auto) (1.20-3.40) K/uL [place] # (Auto) (0.11-0.59) K/uL Eos # (Auto) (0.00-0.50) K/uL Baso # (Auto) (0.00-0.20) K/uL Immature Gran # (Auto) (0.01-0.20) K/uL Absolute Nucleated RBC (0.00-0.12) K/uL Nucleated RBC % (auto) % Polychromasia Hypochromasia Anisocytosis Target Cells Stomatocytes PT (9.0-12.0) Seconds INR (0.9-1.1) Fibrinogen (184-400) mg/dl POC Sodium 134 L (135-144) mmol/L Sodium 136 (136-145) mmol/L POC Potassium 3.0 L (3.3-5.0) mmol/L Potassium 3.0 L (3.5-5.1) mmol/L POC Chloride 89 L (101-112) mmol/L Chloride 93 L (98-107) mmol/L Carbon Dioxide 30 (21-32) mmol/L POC Total CO2 30 (24-31) mmol/L Anion Gap 13 H (3-11) POC Anion Gap 19.0 (16-25) mmol/L POC BUN 21 H (7-18) mg/dl BUN 24 H (6-23) mg/dl Creatinine 0.98 (0.6-1.2) mg/dl POC Creatinine 1.1 (0.6-1.3) mg/dl Est Cr Clr Drug Dosing 79.5 ml/min Est GFR ( Amer) 71.2 ml/min Est GFR (Non-Af Amer) 61.4 ml/min BUN/Creatinine Ratio 24.5 H (10-20) Glucose 220 H (70-99(Fasting)) mg/dl POC Glucose (70-99) mg/dl POC Glucose (other) 221 H (70-99) mg/dl Lactate (0.4-2.0) mmol/L Calcium 8.0 L (8.6-10.3) mg/dl POC Ioniz Calcium Sam[place] 1.06 L (1.12-1.32) mmol/l Ionized Calcium (1.12-1.32) mmol/L Phosphorus (2.5-4.9) mg/dl Magnesium 1.9 (1.7-2.4) mg/dl Total Bilirubin 0.4 (0.2-1.0) mg/dl AST 25 (13-39) U/L ALT 18 (7-52) U/L Alkaline Phosphatase 86 (34-104) U/L Total Creatine Kinase 311 H (26-192) U/L Troponin I High Sens 6.6 (0-14) pg/ml Total Protein 5.8 L (6.0-8.3) gm/dl Albumin 3.3 L (3.4-5.0) gm/dl Globulin 2.5 (2.5-4.0) gm/dl Albumin/Globulin Ratio 1.3 (0.9-2) TSH 3.065 (0.300-4.500) uIu/ml Urine Color Urine Appearance (Clear) Urine pH (4.5-7.5) Ur Specific [place] (1.000-1.030) Urine Protein (Negative) Urine Glucose (UA) (Negative) Urine Ketones (Negative) Urine Blood (Negative) Urine Nitrite (Negative) Urine Bilirubin (Negative) Urine Urobilinogen (Negative) Ur Leukocyte Esterase (Negative) Urine WBC (Auto) (0-5) /hpf Urine RBC (Auto) (0-4) /hpf U Hyaline Cast (Auto) (0-5) /lpf U Epithel Cells (Auto) (0-5) /lpf Urine Bacteria (Auto) (Negative) Nasal Screen MRSA (PCR) POC Stool Occult Blood (Negative) SARS-CoV-2, RNA, NAAT (NEGATIVE) Blood Type O Negative Antibody Screen NEGATIVE Crossmatch See Detail 08/12/23 Range/Units 16:38 WBC 11.99 H (4.8-10.8) K/ul RBC 1.48 L (4.20-5.40) M/uL Hgb 3.9 L* (12.0-16.0) g/dl POC Hgb Hct 13.8 L* (37.0-47.0) % POC Hct (37-47) % MCV 93.2 (80.0-100.0) fL MCH 26.4 (25.0-34.0) pg MCHC 28.3 L (32.0-36.0) g/dL RDW Std Deviation 76.6 H (36.4-46.3) fL RDW Coeff of Ursula 24.1 H (11.5-14.5) % Plt Count 673 H (130-400) K/uL MPV 10.0 (9.4-12.4) fL Immature Gran % (Auto) 3.3 % Neut % (Auto) 71.2 % Lymph % (Auto) 17.3 % [place] % (Auto) 7.7 % Eos % (Auto) 0.3 % Baso % (Auto) 0.2 % Neut # (Auto) 8.56 H (1.40-6.50) K/uL Lymph # (Auto) 2.07 (1.20-3.40) K/uL [place] # (Auto) 0.92 H (0.11-0.59) K/uL Eos # (Auto) 0.03 (0.00-0.50) K/uL Baso # (Auto) 0.02 (0.00-0.20) K/uL Immature Gran # (Auto) 0.39 H (0.01-0.20) K/uL Absolute Nucleated RBC 2.10 H (0.00-0.12) K/uL Nucleated RBC % (auto) 17.5 % Polychromasia 2+ Hypochromasia Present Anisocytosis Present Target Cells 1+ Stomatocytes 2+ PT (9.0-12.0) Seconds INR (0.9-1.1) Fibrinogen (184-400) mg/dl POC Sodium (135-144) mmol/L Sodium (136-145) mmol/L POC Potassium (3.3-5.0) mmol/L Potassium (3.5-5.1) mmol/L POC Chloride (101-112) mmol/L Chloride (98-107) mmol/L Carbon Dioxide (21-32) mmol/L POC Total CO2 (24-31) mmol/L Anion Gap (3-11) POC Anion Gap (16-25) mmol/L POC BUN (7-18) mg/dl BUN (6-23) mg/dl Creatinine (0.6-1.2) mg/dl POC Creatinine (0.6-1.3) mg/dl Est Cr Clr Drug Dosing ml/min Est GFR ( Amer) ml/min Est GFR (Non-Af Amer) ml/min BUN/Creatinine Ratio (10-20) Glucose (70-99(Fasting)) mg/dl POC Glucose (70-99) mg/dl POC Glucose (other) (70-99) mg/dl Lactate (0.4-2.0) mmol/L Calcium (8.6-10.3) mg/dl POC Ioniz Calcium [place] (1.12-1.32) mmol/l Ionized Calcium (1.12-1.32) mmol/L Phosphorus (2.5-4.9) mg/dl Magnesium (1.7-2.4) mg/dl Total Bilirubin (0.2-1.0) mg/dl AST (13-39) U/L ALT (7-52) U/L Alkaline Phosphatase (34-104) U/L Total Creatine Kinase (26-192) U/L Troponin I High Sens (0-14) pg/ml Total Protein (6.0-8.3) gm/dl Albumin (3.4-5.0) gm/dl Globulin (2.5-4.0) gm/dl Albumin/Globulin Ratio (0.9-2) TSH (0.300-4.500) uIu/ml Urine Color Urine Appearance (Clear) Urine pH (4.5-7.5) Ur Specific [place] (1.000-1.030) Urine Protein (Negative) Urine Glucose (UA) (Negative) Urine Ketones (Negative) Urine Blood (Negative) Urine Nitrite (Negative) Urine Bilirubin (Negative) Urine Urobilinogen (Negative) Ur Leukocyte Esterase (Negative) Urine WBC (Auto) (0-5) /hpf Urine RBC (Auto) (0-4) /hpf U Hyaline Cast (Auto) (0-5) /lpf U Epithel Cells (Auto) (0-5) /lpf Urine Bacteria (Auto) (Negative) Nasal Screen MRSA (PCR) POC Stool Occult Blood (Negative) SARS-CoV-2, RNA, NAAT (NEGATIVE) Blood Type Antibody Screen Crossmatch Medications Administered Current Inpatient Medications Acetaminophen (Acetaminophen 500 Mg Tab) 1,000 mg PO Q8H PRN PRN Reason: Pain Stop: 09/12/23 09:37 Last Admin: 08/13/23 12:40 Dose: 1,000 mg Buspirone HCl (Buspirone 5 Mg Tab) 20 mg PO AMHS MARY Stop: 09/11/23 20:59 Last Admin: 08/13/23 07:40 Dose: 20 mg Fluticasone/Vilanterol (Fluticasone/Vilanterol 100/25mcg 14 Puffs/Inhaler) 1 puffs INH DAILY MARY Stop: 09/11/23 20:29 Last Admin: 08/13/23 07:40 Dose: 1 puffs Ceftriaxone Sodium 2,000 mg/ (Dextrose) 70 mls @ 100 mls/hr IV Q24H MARY; Protocol Stop: 08/23/23 18:59 Magnesium Sulfate/Dextrose (Magnesium Sulfate / D5w) 1 gm in 100 mls @ 50 mls/hr IV Q2H MARY; Protocol Stop: 08/13/23 16:29 Last Admin: 08/13/23 13:41 Dose: 50 mls/hr Mirtazapine (Mirtazapine Tab 15 Mg Tab) 30 mg PO HS MARY Stop: 09/11/23 20:59 Last Admin: 08/12/23 21:18 Dose: 30 mg Miscellaneous (Icu Protocol For Hyperglycemia) 1 each N/A ACHS MARY Stop: 08/15/23 07:29 Last Admin: 08/13/23 12:32 Dose: 1 each Miscellaneous ([facility]cu Electrolyte Replacement Protocol) 1 each N/A BID@06,18 MARY; Protocol Stop: 08/20/23 17:59 Montelukast Sodium (Montelukast Sodium 10 Mg Tablet) 10 mg PO HS MARY Stop: 09/11/23 20:59 Last Admin: 08/12/23 21:17 Dose: 10 mg Oxybutynin Chloride (Oxybutynin Chloride Xl 5 Mg Tabcr) 10 mg PO QAM MARY; Protocol Stop: 09/12/23 08:59 Last Admin: 08/13/23 07:40 Dose: 10 mg Potassium Chloride (Potassium Chloride Crtab 20 Meq Tabcr) 40 meq PO Q4H MARY; Protocol Stop: 08/13/23 16:16 Last Admin: 08/13/23 12:35 Dose: 40 meq Tramadol HCl (Tramadol Hcl 50 Mg Tablet) 50 mg PO Q6H PRN PRN Reason: Pain Stop: 09/12/23 15:03 Umeclidinium [place] (Umeclidinium [place] 62.5mcg/Blister 7 Puffs/Inhaler) 1 puffs INH DAILY MARY Stop: 09/12/23 08:59 Last Admin: 08/13/23 07:41 Dose: 1 puffs
[2023-08-13 15:18] LABS: Anisocytosis Present; Polychromasia 2+; Stomatocytes 1+
[2023-08-13] MEDS ORDERED: ICU ELECTROLYTE REPLACEMENT PROTOCOL SCH (18:00)
[2023-08-13] MEDS: traMADol HCL 50 MG TABLET PO PRN (18:27)
[2023-08-13] MEDS ORDERED: BACLOFEN 10 MG TAB PO PRN (18:28)
[2023-08-13] MEDS ORDERED: LIDOCAINE 5% 1 PATCH TD STA (18:29)
[2023-08-13] MEDS: LORazepam 0.5 MG TAB PO PRN (18:35)
[2023-08-13] MEDS: cefTRIAXone SODIUM 2,000 MG in DEXTROSE 5% 50 ML IV SCH (20:17)
[2023-08-13] MEDS: MIRTAZAPINE TAB 15 MG TAB PO SCH (20:17)
[2023-08-13] MEDS: MONTELUKAST SODIUM 10 MG TABLET PO SCH (20:17)
[2023-08-13 21:44] LABS: Basophils # (auto) 0.01 K/uL (0.00-0.20); Basophils % (auto) 0.1 %; Eosinophils # (auto) 0.14 K/uL (0.00-0.50); Eosinophils % (auto) 1.9 %; Hemoglobin 8.2 g/dl (12.0-16.0); Immature Granulocytes # (auto) 0.14 K/uL (0.01-0.20); Immature Granulocytes % (auto) 1.9 %; Lymphocytes # (auto) 1.57 K/uL (1.20-3.40); Lymphocytes % (auto) 21.2 %; Mean Corpuscular Hemoglobin 28.4 pg (25.0-34.0); Mean Corpuscular Hgb Conc 32.8 g/dL (32.0-36.0); Mean Corpuscular Volume 86.5 fL (80.0-100.0); Mean Platelet Volume 9.4 fL (9.4-12.4); Monocytes # (auto) 0.96 K/uL (0.11-0.59); Neutrophils # (auto) 4.57 K/uL (1.40-6.50); Neutrophils % (auto) 61.9 %; Nucleated RBC % (auto) 5.4 %; Platelet Count 435 K/uL (130-400); RDW Coefficient of Variation 17.9 % (11.5-14.5); RDW Standard Deviation 54.6 fL (36.4-46.3); Red Blood Count 2.89 M/uL (4.20-5.40); White Blood Count 7.39 K/ul (4.8-10.8)
[2023-08-13 22:04] LABS: Anisocytosis Present; Polychromasia 1+
[2023-08-14 03:31] LABS: Basophils # (auto) 0.02 K/uL (0.00-0.20); Basophils % (auto) 0.3 %; Eosinophils # (auto) 0.21 K/uL (0.00-0.50); Eosinophils % (auto) 3.2 %; Hematocrit (blood only) 26.3 % (37.0-47.0); Hemoglobin 8.3 g/dl (12.0-16.0); Immature Granulocytes # (auto) 0.11 K/uL (0.01-0.20); Immature Granulocytes % (auto) 1.7 %; Lymphocytes # (auto) 1.66 K/uL (1.20-3.40); Lymphocytes % (auto) 25.4 %; Mean Corpuscular Hemoglobin 28.3 pg (25.0-34.0); Mean Corpuscular Hgb Conc 31.6 g/dL (32.0-36.0); Mean Corpuscular Volume 89.8 fL (80.0-100.0); Mean Platelet Volume 9.5 fL (9.4-12.4); Monocytes # (auto) 0.81 K/uL (0.11-0.59); Monocytes % (auto) 12.4 %; Neutrophils # (auto) 3.73 K/uL (1.40-6.50); Nucleated RBC # (auto) 0.24 K/uL (0.00-0.12); Nucleated RBC % (auto) 3.7 %; Platelet Count 419 K/uL (130-400); RDW Coefficient of Variation 17.9 % (11.5-14.5); RDW Standard Deviation 55.7 fL (36.4-46.3); Red Blood Count 2.93 M/uL (4.20-5.40); White Blood Count 6.54 K/ul (4.8-10.8)
[2023-08-14 03:42] LABS: Albumin Globulin Ratio 1.3 (0.9-2); Albumin Level 3.3 gm/dl (3.4-5.0); BUN Creatinine Ratio 26.1 (10-20); Bilirubin,Total 0.5 mg/dl (0.2-1.0); Calcium 7.9 mg/dl (8.6-10.3); Creatinine Clr Calc Pharmacy 112.9 ml/min; Est GFR (African American) 107.4 ml/min; Est GFR (Non-African American) 92.6 ml/min; Globulin 2.5 gm/dl (2.5-4.0); Magnesium 2.7 mg/dl (1.7-2.4); Phosphorus 2.9 mg/dl (2.5-4.9); Potassium 3.4 mmol/L (3.5-5.1); Total Protein 5.8 gm/dl (6.0-8.3)
[2023-08-14 03:55] LABS: Anisocytosis Present; Polychromasia 1+
[2023-08-14 04:01] LABS: INR 0.9 (0.9-1.1); Prothrombin Time 10.3 Seconds (9.0-12.0)
[2023-08-14] MEDS ORDERED: POTASSIUM CHLORIDE CRTAB 20 MEQ TABCR PO STA (07:59)
--- NOTE | 2023-08-14 07:59 | Hospitalist Progress Note ---
Date of Service August 14, 2023 Assessment & Plan (1) Hypovolemic shock: (2) Anemia: (3) Acute gastrointestinal bleeding: (4) Anticoagulant long-term use: Plan: Initially admitted to ICU -> stable for PCU now Patient presenting from home with reports of generalized weakness and dark tarry stools. In the ED, found to be hypotensive and Hgb 3.9, INR 2.2 Recent hx of elev. INR as outpt S/p vitamin K, Kcentra, desmopressin in the ED Transfuse PRBC, FFP, per ED and ICU PPI drip GI consulted - pt underwent EGD today (08/13/23) - Findings: The examined esophagus was normal. The entire examined stomach was normal. There was a large submucosal nodule likely a lipoma in the gastric body. The duodenal bulb and second portion of the duodenum were normal. Impression: - Normal esophagus. - Normal stomach. 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 - Normal duodenal bulb and second portion of the duodenum. - No specimens collected. Recommendation: - Return patient to hospital hopper for ongoing care. - EUS electively as OP to confirm the lipoma. - Monitor H/H. - If any signs of rebleeding then please obtain a bleeding scan to localize the source. (5) Elevated lactic acid level: (6) UTI (urinary tract infection): Plan: Lactate 5.9 --> 2.4 Likely secondary to hypoperfusion from profound anemia and hypotension. Possible sepsis given positive UA, mild leukocytosis, WBC 11.9. Currently afebrile. Transfuse PRBC, trend lactate, IV ceftriaxone for UTI urine cultx - posit for e. coli - pansensitive, cont. ceftriaxone for now (7) COPD (chronic obstructive pulmonary disease): (8) Chronic respiratory failure with hypoxia: Plan: No signs of acute exacerbation Continue home inhalers Saturating well on chronic 4 liters of oxygen (9) Chronic diastolic CHF (congestive heart failure): Plan: Appears compensated Consider IV Lasix with PRBC transfusion (10) Paroxysmal A-fib: Plan: Rate controlled on metoprolol Anticoagulated on Coumadin -holding due to profound anemia, hypovolemic shock, GI bleeding (11) Depression, unspecified: (12) Anxiety disorder, unspecified: Plan: Chronic, stable Continue home meds DVT PROPHYLAXIS SCDs due to anemia, GI bleeding Admission and Anticipated Discharge Date Admission Date: August 12, 2023 Subjective Pt seen in follow up of anemia, GI bleed, recent supratherap. INR Hgb in ED 3.9, underwent blood transfusion - received vit. K, desmopressin, kcentra Pt has hx of chronic resp. failure, on suppl. O2 at baseline Underwent EGD yesterday - w/o signs of active bleeding Laying in bed in NAD, reports abdomen feels more distended/ bloated and uncomfortable. Hgb stable, above 8 No fever, chills, chest pain, or increased shortness of breath from baseline UA also c/w UTI No stools, She asking about advancing her diet Review of Systems Review of Systems: All systems reviewed & are unremarkable except as noted in Subjective Physical Exam Physical Exam: Constitutional: Morbidly obese F in NAD Respiratory: Occasional wheezes heard. Cardiovascular: RRR, no murmur, no edema Chest: normal inspection of chest Abdomen: normal bowel sounds, soft, nontender Musculoskeletal: moves extremities Skin: no rashes, warm and dry normal turgor Neurologic: PERRL, EOMI, speech fluent, answers appropriately, moves extremities Psychiatric: A+Ox3, euthymic affect Results & Data Results & Data Vital Signs (Past 12 Hours) Vital Signs Temp Pulse Pulse Resp BP Pulse Ox O2 Del Method 08/14/23 07:56 36.6 C 87 17 129/85 97 Nasal Cannula 08/14/23 07:16 79 08/14/23 02:45 36.6 C 72 15 106/65 95 Nasal Cannula 08/13/23 23:20 74 08/13/23 23:12 36.6 C 78 19 111/59 L 94 Nasal Cannula 08/13/23 20:29 Nasal Cannula O2 Flow Rate 08/14/23 07:56 4 08/14/23 07:16 08/14/23 02:45 5 08/13/23 23:20 08/13/23 23:12 5 08/13/23 20:29 4 Laboratory Results 08/14/23 08/14/23 08/14/23 Range/Units 03:12 03:12 03:12 WBC 6.54 (4.8-10.8) K/ul RBC 2.93 L (4.20-5.40) M/uL Hgb 8.3 L (12.0-16.0) g/dl POC Hgb Hct 26.3 L (37.0-47.0) % POC Hct (37-47) % MCV 89.8 (80.0-100.0) fL MCH 28.3 (25.0-34.0) pg MCHC 31.6 L (32.0-36.0) g/dL RDW Std Deviation 55.7 H (36.4-46.3) fL RDW Coeff of Ursula 17.9 H (11.5-14.5) % Plt Count 419 H (130-400) K/uL MPV 9.5 (9.4-12.4) fL Immature Gran % (Auto) 1.7 % Neut % (Auto) 57.0 % Lymph % (Auto) 25.4 % [place] % (Auto) 12.4 % Eos % (Auto) 3.2 % Baso % (Auto) 0.3 % Neut # (Auto) 3.73 (1.40-6.50) K/uL Lymph # (Auto) 1.66 (1.20-3.40) K/uL [place] # (Auto) 0.81 H (0.11-0.59) K/uL Eos # (Auto) 0.21 (0.00-0.50) K/uL Baso # (Auto) 0.02 (0.00-0.20) K/uL Immature Gran # (Auto) 0.11 (0.01-0.20) K/uL Absolute Nucleated RBC 0.24 H (0.00-0.12) K/uL Nucleated RBC % (auto) 3.7 % Polychromasia 1+ Anisocytosis Present Stomatocytes PT 10.3 (9.0-12.0) Seconds INR 0.9 (0.9-1.1) POC Sodium (135-144) mmol/L Sodium 135 L (136-145) mmol/L POC Potassium (3.3-5.0) mmol/L Potassium 3.4 L (3.5-5.1) mmol/L POC Chloride (101-112) mmol/L Chloride 99 (98-107) mmol/L Carbon Dioxide 30 (21-32) mmol/L POC Total CO2 (24-31) mmol/L Anion Gap 6 (3-11) POC Anion Gap (16-25) mmol/L POC BUN (7-18) mg/dl BUN 18 (6-23) mg/dl Creatinine 0.69 (0.6-1.2) mg/dl POC Creatinine (0.6-1.3) mg/dl Est Cr Clr Drug Dosing 112.9 ml/min Est GFR ( Amer) 107.4 ml/min Est GFR (Non-Af Amer) 92.6 ml/min BUN/Creatinine Ratio 26.1 H (10-20) Glucose 105 H (70-99(Fasting)) mg/dl POC Glucose (70-99) mg/dl POC Glucose (other) (70-99) mg/dl Calcium 7.9 L (8.6-10.3) mg/dl POC Ioniz Calcium [place] (1.12-1.32) mmol/l Phosphorus 2.9 (2.5-4.9) mg/dl Magnesium 2.7 H (1.7-2.4) mg/dl Total Bilirubin 0.5 (0.2-1.0) mg/dl AST 23 (13-39) U/L ALT 16 (7-52) U/L Alkaline Phosphatase 90 (34-104) U/L Total Protein 5.8 L (6.0-8.3) gm/dl Albumin 3.3 L (3.4-5.0) gm/dl Globulin 2.5 (2.5-4.0) gm/dl Albumin/Globulin Ratio 1.3 (0.9-2) Nasal Screen MRSA (PCR) (Negative) 08/13/23 08/13/23 08/13/23 Range/Units 21:28 14:34 12:30 WBC 7.39 7.29 (4.8-10.8) K/ul RBC 2.89 L 2.90 L (4.20-5.40) M/uL Hgb 8.2 L 8.2 L (12.0-16.0) g/dl POC Hgb Hct 25.0 L 25.8 L (37.0-47.0) % POC Hct (37-47) % MCV 86.5 89.0 (80.0-100.0) fL MCH 28.4 28.3 (25.0-34.0) pg MCHC 32.8 31.8 L (32.0-36.0) g/dL RDW Std Deviation 54.6 H 55.2 H (36.4-46.3) fL RDW Coeff of Ursula 17.9 H 17.8 H (11.5-14.5) % Plt Count 435 H 414 H (130-400) K/uL MPV 9.4 9.5 (9.4-12.4) fL Immature Gran % (Auto) 1.9 2.2 % Neut % (Auto) 61.9 70.4 % Lymph % (Auto) 21.2 13.9 % [place] % (Auto) 13.0 11.7 % Eos % (Auto) 1.9 1.5 % Baso % (Auto) 0.1 0.3 % Neut # (Auto) 4.57 5.14 (1.40-6.50) K/uL Lymph # (Auto) 1.57 1.01 L (1.20-3.40) K/uL [place] # (Auto) 0.96 H 0.85 H (0.11-0.59) K/uL Eos # (Auto) 0.14 0.11 (0.00-0.50) K/uL Baso # (Auto) 0.01 0.02 (0.00-0.20) K/uL Immature Gran # (Auto) 0.14 0.16 (0.01-0.20) K/uL Absolute Nucleated RBC 0.40 H 0.58 H (0.00-0.12) K/uL Nucleated RBC % (auto) 5.4 8.0 % Polychromasia 1+ 2+ Anisocytosis Present Present Stomatocytes 1+ PT (9.0-12.0) Seconds INR (0.9-1.1) POC Sodium (135-144) mmol/L Sodium (136-145) mmol/L POC Potassium (3.3-5.0) mmol/L Potassium (3.5-5.1) mmol/L POC Chloride (101-112) mmol/L Chloride (98-107) mmol/L Carbon Dioxide (21-32) mmol/L POC Total CO2 (24-31) mmol/L Anion Gap (3-11) POC Anion Gap (16-25) mmol/L POC BUN (7-18) mg/dl BUN (6-23) mg/dl Creatinine (0.6-1.2) mg/dl POC Creatinine (0.6-1.3) mg/dl Est Cr Clr Drug Dosing ml/min Est GFR ( Amer) ml/min Est GFR (Non-Af Amer) ml/min BUN/Creatinine Ratio (10-20) Glucose (70-99(Fasting)) mg/dl POC Glucose 136 H (70-99) mg/dl POC Glucose (other) (70-99) mg/dl Calcium (8.6-10.3) mg/dl POC Ioniz Calcium [place] (1.12-1.32) mmol/l Phosphorus (2.5-4.9) mg/dl Magnesium (1.7-2.4) mg/dl Total Bilirubin (0.2-1.0) mg/dl AST (13-39) U/L ALT (7-52) U/L Alkaline Phosphatase (34-104) U/L Total Protein (6.0-8.3) gm/dl Albumin (3.4-5.0) gm/dl Globulin (2.5-4.0) gm/dl Albumin/Globulin Ratio (0.9-2) Nasal Screen MRSA (PCR) (Negative) 08/13/23 08/13/23 08/13/23 Range/Units 12:16 08:04 07:03 WBC 7.79 (4.8-10.8) K/ul RBC 2.91 L (4.20-5.40) M/uL Hgb 8.3 L (12.0-16.0) g/dl POC Hgb Hct 25.9 L (37.0-47.0) % POC Hct (37-47) % MCV 89.0 (80.0-100.0) fL MCH 28.5 (25.0-34.0) pg MCHC 32.0 (32.0-36.0) g/dL RDW Std Deviation 54.7 H (36.4-46.3) fL RDW Coeff of [place] 17.7 H (11.5-14.5) % Plt Count 416 H (130-400) K/uL MPV 9.9 (9.4-12.4) fL Immature Gran % (Auto) 2.3 % Neut % (Auto) 67.6 % Lymph % (Auto) 17.3 % [place] % (Auto) 11.3 % Eos % (Auto) 1.0 % Baso % (Auto) 0.5 % Neut # (Auto) 5.26 (1.40-6.50) K/uL Lymph # (Auto) 1.35 (1.20-3.40) K/uL [place] # (Auto) 0.88 H (0.11-0.59) K/uL Eos # (Auto) 0.08 (0.00-0.50) K/uL Baso # (Auto) 0.04 (0.00-0.20) K/uL Immature Gran # (Auto) 0.18 (0.01-0.20) K/uL Absolute Nucleated RBC 0.61 H (0.00-0.12) K/uL Nucleated RBC % (auto) 7.8 % Polychromasia 2+ Anisocytosis Stomatocytes PT (9.0-12.0) Seconds INR (0.9-1.1) POC Sodium (135-144) mmol/L Sodium (136-145) mmol/L POC Potassium (3.3-5.0) mmol/L Potassium (3.5-5.1) mmol/L POC Chloride (101-112) mmol/L Chloride (98-107) mmol/L Carbon Dioxide (21-32) mmol/L POC Total CO2 (24-31) mmol/L Anion Gap (3-11) POC Anion Gap (16-25) mmol/L POC BUN (7-18) mg/dl BUN (6-23) mg/dl Creatinine (0.6-1.2) mg/dl POC Creatinine (0.6-1.3) mg/dl Est Cr Clr Drug Dosing ml/min Est GFR ( Amer) ml/min Est GFR (Non-Af Amer) ml/min BUN/Creatinine Ratio (10-20) Glucose (70-99(Fasting)) mg/dl POC Glucose 130 H (70-99) mg/dl POC Glucose (other) (70-99) mg/dl Calcium (8.6-10.3) mg/dl POC Ioniz Calcium [place] (1.12-1.32) mmol/l Phosphorus (2.5-4.9) mg/dl Magnesium (1.7-2.4) mg/dl Total Bilirubin (0.2-1.0) mg/dl AST (13-39) U/L ALT (7-52) U/L Alkaline Phosphatase (34-104) U/L Total Protein (6.0-8.3) gm/dl Albumin (3.4-5.0) gm/dl Globulin (2.5-4.0) gm/dl Albumin/Globulin Ratio (0.9-2) Nasal Screen MRSA (PCR) Negative (Negative) 08/12/23 Range/Units 16:44 WBC (4.8-10.8) K/ul RBC (4.20-5.40) M/uL Hgb (12.0-16.0) g/dl POC Hgb TNP Hct (37.0-47.0) % POC Hct < 15 L* (37-47) % MCV (80.0-100.0) fL MCH (25.0-34.0) pg MCHC (32.0-36.0) g/dL RDW Std Deviation (36.4-46.3) fL RDW Coeff of [place] (11.5-14.5) % Plt Count (130-400) K/uL MPV (9.4-12.4) fL Immature Gran % (Auto) % Neut % (Auto) % Lymph % (Auto) % [place] % (Auto) % Eos % (Auto) % Baso % (Auto) % Neut # (Auto) (1.40-6.50) K/uL Lymph # (Auto) (1.20-3.40) K/uL [place] # (Auto) (0.11-0.59) K/uL Eos # (Auto) (0.00-0.50) K/uL Baso # (Auto) (0.00-0.20) K/uL Immature Gran # (Auto) (0.01-0.20) K/uL Absolute Nucleated RBC (0.00-0.12) K/uL Nucleated RBC % (auto) % Polychromasia Anisocytosis Stomatocytes PT (9.0-12.0) Seconds INR (0.9-1.1) POC Sodium 134 L (135-144) mmol/L Sodium (136-145) mmol/L POC Potassium 3.0 L (3.3-5.0) mmol/L Potassium (3.5-5.1) mmol/L POC Chloride 89 L (101-112) mmol/L Chloride (98-107) mmol/L Carbon Dioxide (21-32) mmol/L POC Total CO2 30 (24-31) mmol/L Anion Gap (3-11) POC Anion Gap 19.0 (16-25) mmol/L POC BUN 21 H (7-18) mg/dl BUN (6-23) mg/dl Creatinine (0.6-1.2) mg/dl POC Creatinine 1.1 (0.6-1.3) mg/dl Est Cr Clr Drug Dosing ml/min Est GFR ( Amer) ml/min Est GFR (Non-Af Amer) ml/min BUN/Creatinine Ratio (10-20) Glucose (70-99(Fasting)) mg/dl POC Glucose (70-99) mg/dl POC Glucose (other) 221 H (70-99) mg/dl Calcium (8.6-10.3) mg/dl POC Ioniz Calcium [place] 1.06 L (1.12-1.32) mmol/l Phosphorus (2.5-4.9) mg/dl Magnesium (1.7-2.4) mg/dl Total Bilirubin (0.2-1.0) mg/dl AST (13-39) U/L ALT (7-52) U/L Alkaline Phosphatase (34-104) U/L Total Protein (6.0-8.3) gm/dl Albumin (3.4-5.0) gm/dl Globulin (2.5-4.0) gm/dl Albumin/Globulin Ratio (0.9-2) Nasal Screen MRSA (PCR) (Negative) Medications Administered Current Inpatient Medications Acetaminophen (Acetaminophen 500 Mg Tab) 1,000 mg PO Q8H PRN PRN Reason: Pain Stop: 09/12/23 09:37 Last Admin: 08/13/23 18:26 Dose: 1,000 mg Baclofen (Baclofen 10 Mg Tab) 10 mg PO BID PRN PRN Reason: back spasm Stop: 09/12/23 20:59 Buspirone HCl (Buspirone 5 Mg Tab) 20 mg PO AMHS MARY Stop: 09/11/23 20:59 Last Admin: 08/13/23 20:17 Dose: 20 mg Fluticasone/Vilanterol (Fluticasone/Vilanterol 100/25mcg 14 Puffs/Inhaler) 1 puffs INH DAILY MARY Stop: 09/11/23 20:29 Last Admin: 08/13/23 07:40 Dose: 1 puffs Ceftriaxone Sodium 2,000 mg/ (Dextrose) 70 mls @ 100 mls/hr IV Q24H MARY; Protocol Stop: 08/23/23 18:59 Last Infusion: 08/13/23 20:52 Dose: Infused Lorazepam (Lorazepam 0.5 Mg Tab) 0.5 mg PO TID PRN PRN Reason: Anxiety Stop: 09/12/23 18:12 Last Admin: 08/13/23 18:35 Dose: 0.5 mg Mirtazapine (Mirtazapine Tab 15 Mg Tab) 30 mg PO HS MARY Stop: 09/11/23 20:59 Last Admin: 08/13/23 20:17 Dose: 30 mg Montelukast Sodium (Montelukast Sodium 10 Mg Tablet) 10 mg PO HS MARY Stop: 09/11/23 20:59 Last Admin: 08/13/23 20:17 Dose: 10 mg Oxybutynin Chloride (Oxybutynin Chloride Xl 5 Mg Tabcr) 10 mg PO QAM MARY; Protocol Stop: 09/12/23 08:59 Last Admin: 08/13/23 07:40 Dose: 10 mg Tramadol HCl (Tramadol Hcl 50 Mg Tablet) 50 mg PO Q4H PRN PRN Reason: Pain Stop: 09/12/23 15:03 Last Admin: 08/13/23 18:27 Dose: 50 mg Umeclidinium [place] (Umeclidinium [place] 62.5mcg/Blister 7 Puffs/Inhaler) 1 puffs INH DAILY MARY Stop: 09/12/23 08:59 Last Admin: 08/13/23 07:41 Dose: 1 puffs
[2023-08-14] MEDS: LORazepam 0.5 MG TAB PO PRN ×3 (08:07→20:17)
[2023-08-14] MEDS: traMADol HCL 50 MG TABLET PO PRN ×3 (08:07→20:17)
[2023-08-14] MEDS: UMECLIDINIUM BROMIDE 62.5MCG/BLISTER 7 PUFFS/INHALER INH SCH (08:08)
[2023-08-14] MEDS: busPIRone 5 MG TAB PO SCH ×2 (08:08→20:18)
[2023-08-14] MEDS: FLUTICASONE/VILANTEROL 100/25MCG 14 PUFFS/INHALER INH SCH (08:08)
[2023-08-14] MEDS: OXYBUTYNIN CHLORIDE XL 5 MG TABCR PO SCH (08:08)
[2023-08-14 09:30] LABS: Basophils # (auto) 0.01 K/uL (0.00-0.20); Basophils % (auto) 0.1 %; Eosinophils # (auto) 0.14 K/uL (0.00-0.50); Hematocrit (blood only) 27.8 % (37.0-47.0); Hemoglobin 8.8 g/dl (12.0-16.0); Immature Granulocytes # (auto) 0.13 K/uL (0.01-0.20); Immature Granulocytes % (auto) 1.9 %; Lymphocytes # (auto) 1.32 K/uL (1.20-3.40); Lymphocytes % (auto) 19.2 %; Mean Corpuscular Hemoglobin 28.5 pg (25.0-34.0); Mean Corpuscular Hgb Conc 31.7 g/dL (32.0-36.0); Mean Platelet Volume 9.4 fL (9.4-12.4); Monocytes # (auto) 0.74 K/uL (0.11-0.59); Monocytes % (auto) 10.8 %; Neutrophils # (auto) 4.53 K/uL (1.40-6.50); Nucleated RBC # (auto) 0.19 K/uL (0.00-0.12); Nucleated RBC % (auto) 2.8 %; Platelet Count 454 K/uL (130-400); RDW Coefficient of Variation 17.9 % (11.5-14.5); RDW Standard Deviation 56.5 fL (36.4-46.3); Red Blood Count 3.09 M/uL (4.20-5.40); White Blood Count 6.87 K/ul (4.8-10.8)
[2023-08-14 09:52] LABS: Polychromasia 2+; Stomatocytes 1+
[2023-08-14] MEDS ORDERED: LORazepam 0.5 MG TAB PO PRN (14:12)
[2023-08-14] MEDS ORDERED: NON-FORMULARY MEDICATION (Albuterol Sulfate 5 mg/mL Solution For Nebulization) INH PRN (14:12)
[2023-08-14 15:12] LABS: Hematocrit (blood only) 26.8 % (37.0-47.0); Hemoglobin 8.5 g/dl (12.0-16.0); Mean Corpuscular Hemoglobin 28.4 pg (25.0-34.0); Mean Corpuscular Hgb Conc 31.7 g/dL (32.0-36.0); Mean Corpuscular Volume 89.6 fL (80.0-100.0); Mean Platelet Volume 10.2 fL (9.4-12.4); Nucleated RBC # (auto) 0.17 K/uL (0.00-0.12); Nucleated RBC % (auto) 2.4 %; Platelet Count 442 K/uL (130-400); RDW Coefficient of Variation 17.7 % (11.5-14.5); RDW Standard Deviation 56.8 fL (36.4-46.3); Red Blood Count 2.99 M/uL (4.20-5.40); White Blood Count 7.03 K/ul (4.8-10.8)
[2023-08-14] MEDS: METOPROLOL SUCC 25MG EXT REL TAB PO SCH (15:20)
[2023-08-14 15:26] LABS: ALC (manual) 0.77 K/uL (1.2-3.4); ANC (manual) 5.27 K/uL (1.4-6.5); Eosinophils # (manual) 0.21 K/uL (0-0.50); Eosinophils % (manual) 3 %; Lymphocytes # (manual) 0.77 K/uL (1.2-3.4); Lymphocytes % (manual) 11 %; Monocytes # (manual) 0.77 K/uL (0.11-0.59); Monocytes % (manual) 11 %; Neutrophils # (manual) 5.27 K/uL (1.40-6.50); Neutrophils % (manual) 75 %; Polychromasia 1+
[2023-08-14 19:23] LABS: Hematocrit (blood only) 28.1 % (37.0-47.0); Hemoglobin 8.6 g/dl (12.0-16.0)
--- NOTE | 2023-08-14 19:32 | Electrocardiogram Report ---
Test Reason : Blood Pressure : / mmHG Vent. Rate : 106 BPM Atrial Rate : 106 BPM P-R Int : 130 ms QRS Dur : 076 ms QT Int : 368 ms P-R-T Axes : 011 011 011 degrees QTc Int : 488 ms Poor data quality, interpretation may be adversely affected Sinus tachycardia Low voltage QRS Nonspecific ST and T wave abnormality Abnormal ECG When compared with ECG of 21-JUL-2023 09:28, ST now depressed in Anterior leads Confirmed by Live Warren ([id number]) on 08/14/2023 7:32:38 PM Referred By: REFERRED SELF Confirmed By:Live Warren
[2023-08-14] MEDS: MONTELUKAST SODIUM 10 MG TABLET PO SCH (20:17)
[2023-08-14] MEDS: MIRTAZAPINE TAB 15 MG TAB PO SCH (20:18)
[2023-08-14] MEDS: cefTRIAXone SODIUM 2,000 MG in DEXTROSE 5% 50 ML IV SCH (20:18)
[2023-08-14] MEDS: MICONAZOLE NITRATE 2% CR 30 GM TUBE EXT SCH (20:18)
[2023-08-15] MEDS: traMADol HCL 50 MG TABLET PO PRN ×3 (06:40→18:23)
[2023-08-15] MEDS: LORazepam 0.5 MG TAB PO PRN ×2 (06:40→19:54)
[2023-08-15 07:36] LABS: Basophils # (auto) 0.01 K/uL (0.00-0.20); Basophils % (auto) 0.2 %; Eosinophils # (auto) 0.24 K/uL (0.00-0.50); Eosinophils % (auto) 3.7 %; Hematocrit (blood only) 29.1 % (37.0-47.0); Hemoglobin 8.7 g/dl (12.0-16.0); Immature Granulocytes # (auto) 0.08 K/uL (0.01-0.20); Immature Granulocytes % (auto) 1.2 %; Lymphocytes # (auto) 1.19 K/uL (1.20-3.40); Lymphocytes % (auto) 18.4 %; Mean Corpuscular Hemoglobin 27.6 pg (25.0-34.0); Mean Corpuscular Hgb Conc 29.9 g/dL (32.0-36.0); Mean Corpuscular Volume 92.4 fL (80.0-100.0); Mean Platelet Volume 9.4 fL (9.4-12.4); Monocytes # (auto) 0.85 K/uL (0.11-0.59); Monocytes % (auto) 13.1 %; Neutrophils % (auto) 63.4 %; Nucleated RBC % (auto) 1.5 %; Platelet Count 469 K/uL (130-400); RDW Coefficient of Variation 17.9 % (11.5-14.5); RDW Standard Deviation 58.9 fL (36.4-46.3); Red Blood Count 3.15 M/uL (4.20-5.40); White Blood Count 6.47 K/ul (4.8-10.8)
[2023-08-15 07:51] LABS: Albumin Globulin Ratio 1.2 (0.9-2); Albumin Level 3.1 gm/dl (3.4-5.0); BUN Creatinine Ratio 16.4 (10-20); Bilirubin,Total 0.4 mg/dl (0.2-1.0); Calcium 7.9 mg/dl (8.6-10.3); Est GFR (African American) 108.4 ml/min; Est GFR (Non-African American) 93.5 ml/min; Globulin 2.5 gm/dl (2.5-4.0); Magnesium 2.3 mg/dl (1.7-2.4); Potassium 3.6 mmol/L (3.5-5.1); Total Protein 5.6 gm/dl (6.0-8.3)
[2023-08-15 08:04] LABS: INR 0.9 (0.9-1.1); Prothrombin Time 10.3 Seconds (9.0-12.0)
[2023-08-15] MEDS: busPIRone 5 MG TAB PO SCH ×2 (08:14→19:54)
[2023-08-15] MEDS: OXYBUTYNIN CHLORIDE XL 5 MG TABCR PO SCH (08:14)
[2023-08-15] MEDS: METOPROLOL SUCC 25MG EXT REL TAB PO SCH (08:14)
[2023-08-15] MEDS: UMECLIDINIUM BROMIDE 62.5MCG/BLISTER 7 PUFFS/INHALER INH SCH (08:15)
[2023-08-15] MEDS: FLUTICASONE/VILANTEROL 100/25MCG 14 PUFFS/INHALER INH SCH (08:15)
[2023-08-15] MEDS: MICONAZOLE NITRATE 2% CR 30 GM TUBE EXT SCH ×2 (08:15→19:55)
--- NOTE | 2023-08-15 10:59 | Hospitalist Progress Note ---
Date of Service August 15, 2023 Assessment & Plan (1) Hypovolemic shock: (2) Anemia: (3) Acute gastrointestinal bleeding: (4) Anticoagulant long-term use: Plan: Initially admitted to ICU -> stable for PCU now Patient presenting from home with reports of generalized weakness and dark tarry stools. In the ED, found to be hypotensive and Hgb 3.9, INR 2.2 Recent hx of elev. INR as outpt S/p vitamin K, Kcentra, desmopressin in the ED Transfused PRBC, FFP, per ED and ICU PPI drip GI consulted - pt underwent EGD today (08/13/23) - Findings: The examined esophagus was normal. The entire examined stomach was normal. There was a large submucosal nodule likely a lipoma in the gastric body. The duodenal bulb and second portion of the duodenum were normal. Impression: - Normal esophagus. - Normal stomach. 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 - Normal duodenal bulb and second portion of the duodenum. - No specimens collected. Recommendation: - Return patient to hospital hopper for ongoing care. - EUS electively as OP to confirm the lipoma. - Monitor H/H. - If any signs of rebleeding then please obtain a bleeding scan to localize the source. (5) Elevated lactic acid level: (6) UTI (urinary tract infection): Plan: Lactate 5.9 --> 2.4 Likely secondary to hypoperfusion from profound anemia and hypotension. Possible sepsis given positive UA, mild leukocytosis, WBC 11.9. Currently afebrile. Transfuse PRBC, trend lactate, IV ceftriaxone for UTI urine cultx - posit for e. coli - pansensitive, cont. ceftriaxone for now (7) COPD (chronic obstructive pulmonary disease): (8) Chronic respiratory failure with hypoxia: Plan: No signs of acute exacerbation Continue home inhalers Saturating well on chronic 4 liters of oxygen (9) Chronic diastolic CHF (congestive heart failure): Plan: Appears compensated Consider IV Lasix with PRBC transfusion (10) Paroxysmal A-fib: Plan: Rate controlled on metoprolol Anticoagulated on Coumadin -holding due to profound anemia, hypovolemic shock, GI bleeding (11) Depression, unspecified: (12) Anxiety disorder, unspecified: Plan: Chronic, stable Continue home meds DVT PROPHYLAXIS SCDs due to anemia, GI bleeding Admission and Anticipated Discharge Date Admission Date: August 12, 2023 Subjective Pt seen in follow up of anemia, GI bleed, recent supratherap. INR Hgb in ED 3.9, underwent blood transfusion - received vit. K, desmopressin, kcentra Pt has hx of chronic resp. failure, on suppl. O2 at baseline Underwent EGD - w/o signs of active bleeding Laying in bed in NAD, reports abdomen feels somewhat bloated and uncomfortable. Hgb stable, above 8 No fever, chills, chest pain, or increased shortness of breath from baseline UA also c/w UTI Pt had multiple stools,do not appear bloody. She is asking about advancing her diet Review of Systems Review of Systems: All systems reviewed & are unremarkable except as noted in Subjective Physical Exam Physical Exam: Constitutional: Morbidly obese F in NAD Respiratory: Occasional wheezes heard. Cardiovascular: RRR, no murmur, no edema Chest: normal inspection of chest Abdomen: normal bowel sounds, soft, nontender Musculoskeletal: moves extremities Skin: no rashes, warm and dry normal turgor Neurologic: PERRL, EOMI, speech fluent, answers appropriately, moves extremities Psychiatric: A+Ox3, euthymic affect Results & Data Results & Data Vital Signs (Past 12 Hours) Vital Signs Temp Pulse Pulse Resp BP BP Pulse Ox 08/15/23 09:00 08/15/23 07:54 36.7 C 84 19 109/63 95 08/15/23 07:44 85 08/15/23 02:24 36.7 C 88 22 119/63 93 08/14/23 23:38 36.8 C 87 21 106/56 L 96 08/14/23 23:18 82 O2 Del Method O2 Flow Rate 08/15/23 09:00 Nasal Cannula 4 08/15/23 07:54 Nasal Cannula 4 08/15/23 07:44 08/15/23 02:24 Nasal Cannula 4 08/14/23 23:38 Nasal Cannula 4 08/14/23 23:18 Laboratory Results 08/15/23 08/15/23 08/15/23 Range/Units 06:33 06:33 06:33 WBC 6.47 (4.8-10.8) K/ul RBC 3.15 L (4.20-5.40) M/uL Hgb 8.7 L (12.0-16.0) g/dl Hct 29.1 L (37.0-47.0) % MCV 92.4 (80.0-100.0) fL MCH 27.6 (25.0-34.0) pg MCHC 29.9 L (32.0-36.0) g/dL RDW Std Deviation 58.9 H (36.4-46.3) fL RDW Coeff of Ursula 17.9 H (11.5-14.5) % Plt Count 469 H (130-400) K/uL MPV 9.4 (9.4-12.4) fL Immature Gran % (Auto) 1.2 % Neut % (Auto) 63.4 % Lymph % (Auto) 18.4 % [place] % (Auto) 13.1 % Eos % (Auto) 3.7 % Baso % (Auto) 0.2 % Neut # (Auto) 4.10 (1.40-6.50) K/uL Lymph # (Auto) 1.19 L (1.20-3.40) K/uL [place] # (Auto) 0.85 H (0.11-0.59) K/uL Eos # (Auto) 0.24 (0.00-0.50) K/uL Baso # (Auto) 0.01 (0.00-0.20) K/uL Immature Gran # (Auto) 0.08 (0.01-0.20) K/uL Absolute Nucleated RBC 0.10 (0.00-0.12) K/uL Nucleated RBC % (auto) 1.5 % Neutrophils % (Manual) % Lymphocytes % (Manual) % Monocytes % (Manual) % Eosinophils % (Manual) % Neutrophils # (Manual) (1.40-6.50) K/uL Total Absolute Neuts (1.4-6.5) K/uL Lymphocytes # (Manual) (1.2-3.4) K/uL Total Abs Lymphocytes (1.2-3.4) K/uL Monocytes # (Manual) (0.11-0.59) K/uL Eosinophils # (Manual) (0-0.50) K/uL Polychromasia PT 10.3 (9.0-12.0) Seconds INR 0.9 (0.9-1.1) Sodium 139 (136-145) mmol/L Potassium 3.6 (3.5-5.1) mmol/L Chloride 102 (98-107) mmol/L Carbon Dioxide 32 (21-32) mmol/L Anion Gap 5 (3-11) BUN 11 (6-23) mg/dl Creatinine 0.67 (0.6-1.2) mg/dl Est Cr Clr Drug Dosing 118.0 ml/min Est GFR ( Amer) 108.4 ml/min Est GFR (Non-Af Amer) 93.5 ml/min BUN/Creatinine Ratio 16.4 (10-20) Glucose 109 H (70-99(Fasting)) mg/dl Calcium 7.9 L (8.6-10.3) mg/dl Magnesium 2.3 (1.7-2.4) mg/dl Total Bilirubin 0.4 (0.2-1.0) mg/dl AST 16 (13-39) U/L ALT 17 (7-52) U/L Alkaline Phosphatase 82 (34-104) U/L Total Protein 5.6 L (6.0-8.3) gm/dl Albumin 3.1 L (3.4-5.0) gm/dl Globulin 2.5 (2.5-4.0) gm/dl Albumin/Globulin Ratio 1.2 (0.9-2) Blood Type Antibody Screen Crossmatch 08/14/23 08/14/23 08/12/23 Range/Units 18:57 14:29 16:49 WBC 7.03 (4.8-10.8) K/ul RBC 2.99 L (4.20-5.40) M/uL Hgb 8.6 L 8.5 L (12.0-16.0) g/dl Hct 28.1 L 26.8 L (37.0-47.0) % MCV 89.6 (80.0-100.0) fL MCH 28.4 (25.0-34.0) pg MCHC 31.7 L (32.0-36.0) g/dL RDW Std Deviation 56.8 H (36.4-46.3) fL RDW Coeff of Ursula 17.7 H (11.5-14.5) % Plt Count 442 H (130-400) K/uL MPV 10.2 (9.4-12.4) fL Immature Gran % (Auto) % Neut % (Auto) % Lymph % (Auto) % [place] % (Auto) % Eos % (Auto) % Baso % (Auto) % Neut # (Auto) (1.40-6.50) K/uL Lymph # (Auto) (1.20-3.40) K/uL [place] # (Auto) (0.11-0.59) K/uL Eos # (Auto) (0.00-0.50) K/uL Baso # (Auto) (0.00-0.20) K/uL Immature Gran # (Auto) (0.01-0.20) K/uL Absolute Nucleated RBC 0.17 H (0.00-0.12) K/uL Nucleated RBC % (auto) 2.4 % Neutrophils % (Manual) 75 % Lymphocytes % (Manual) 11 % Monocytes % (Manual) 11 % Eosinophils % (Manual) 3 % Neutrophils # (Manual) 5.27 (1.40-6.50) K/uL Total Absolute Neuts 5.27 (1.4-6.5) K/uL Lymphocytes # (Manual) 0.77 L (1.2-3.4) K/uL Total Abs Lymphocytes 0.77 L (1.2-3.4) K/uL Monocytes # (Manual) 0.77 H (0.11-0.59) K/uL Eosinophils # (Manual) 0.21 (0-0.50) K/uL Polychromasia 1+ PT (9.0-12.0) Seconds INR (0.9-1.1) Sodium (136-145) mmol/L Potassium (3.5-5.1) mmol/L Chloride (98-107) mmol/L Carbon Dioxide (21-32) mmol/L Anion Gap (3-11) BUN (6-23) mg/dl Creatinine (0.6-1.2) mg/dl Est Cr Clr Drug Dosing ml/min Est GFR ( Amer) ml/min Est GFR (Non-Af Amer) ml/min BUN/Creatinine Ratio (10-20) Glucose (70-99(Fasting)) mg/dl Calcium (8.6-10.3) mg/dl Magnesium (1.7-2.4) mg/dl Total Bilirubin (0.2-1.0) mg/dl AST (13-39) U/L ALT (7-52) U/L Alkaline Phosphatase (34-104) U/L Total Protein (6.0-8.3) gm/dl Albumin (3.4-5.0) gm/dl Globulin (2.5-4.0) gm/dl Albumin/Globulin Ratio (0.9-2) Blood Type O Negative Antibody Screen NEGATIVE Crossmatch See Detail Medications Administered Current Inpatient Medications Acetaminophen (Acetaminophen 500 Mg Tab) 1,000 mg PO Q8H PRN PRN Reason: Pain Stop: 09/12/23 09:37 Last Admin: 08/13/23 18:26 Dose: 1,000 mg Acetaminophen/Codeine Phosphate (Acetaminophen W/Codeine #3 1 Tab) 1 tab PO Q6 PRN PRN Reason: Moderate Pain (Scale Score 5-6) Stop: 09/13/23 14:11 Albuterol (Albuterol Hfa 8 Gm Inhaler) 2 puffs INH QID PRN PRN Reason: sob Stop: 09/13/23 14:11 Baclofen (Baclofen 10 Mg Tab) 10 mg PO BID PRN PRN Reason: back spasm Stop: 09/12/23 20:59 Buspirone HCl (Buspirone 5 Mg Tab) 20 mg PO AMHS MARY Stop: 09/11/23 20:59 Last Admin: 08/15/23 08:14 Dose: 20 mg Fluticasone/Vilanterol (Fluticasone/Vilanterol 100/25mcg 14 Puffs/Inhaler) 1 puffs INH DAILY MARY Stop: 09/11/23 20:29 Last Admin: 08/15/23 08:15 Dose: 1 puffs Ceftriaxone Sodium 2,000 mg/ (Dextrose) 70 mls @ 100 mls/hr IV Q24H MARY; Protocol Stop: 08/23/23 18:59 Last Infusion: 08/14/23 21:00 Dose: Infused Lorazepam (Lorazepam 0.5 Mg Tab) 0.5 mg PO TID PRN PRN Reason: Anxiety Stop: 09/12/23 18:12 Last Admin: 08/15/23 06:40 Dose: 0.5 mg Lorazepam (Lorazepam 0.5 Mg Tab) 0.5 mg PO Q8 PRN PRN Reason: Anxiety Stop: 09/13/23 14:11 Metoprolol Succinate (Metoprolol Succ 25mg Ext Rel Tab) 25 mg PO QAM MARY Stop: 09/13/23 14:14 Last Admin: 08/15/23 08:14 Dose: 25 mg Miconazole Nitrate (Miconazole Nitrate 2% Cr 30 Gm Tube) 1 appln EXT BID MARY Stop: 09/13/23 20:59 Last Admin: 08/15/23 08:15 Dose: 1 appln Mirtazapine (Mirtazapine Tab 15 Mg Tab) 30 mg PO HS MARY Stop: 09/11/23 20:59 Last Admin: 08/14/23 20:18 Dose: 30 mg Montelukast Sodium (Montelukast Sodium 10 Mg Tablet) 10 mg PO HS MARY Stop: 09/11/23 20:59 Last Admin: 08/14/23 20:17 Dose: 10 mg Oxybutynin Chloride (Oxybutynin Chloride Xl 5 Mg Tabcr) [facility] [place] Stop: 09/12/23 08:59 Last Admin: 08/15/23 08:14 Dose: 10 mg Tramadol HCl (Tramadol Hcl 50 Mg Tablet) 50 mg PO Q4H PRN PRN Reason: Pain Stop: 09/12/23 15:03 Last Admin: 08/15/23 06:40 Dose: 50 mg Umeclidinium [place] (Umeclidinium [place] 62.5mcg/Blister 7 Puffs/Inhaler) 1 puffs INH DAILY MARY Stop: 09/12/23 08:59 Last Admin: 08/15/23 08:15 Dose: 1 puffs
[2023-08-15] MEDS: ALBUTEROL HFA 8 GM INHALER INH PRN (13:24)
[2023-08-15] MEDS: ADVANCED PROBIOTIC 1250 MG CAPSULE PO SCH (16:42)
[2023-08-15 16:53] LABS: Hematocrit (blood only) 30.7 % (37.0-47.0); Hemoglobin 9.3 g/dl (12.0-16.0)
[2023-08-15] MEDS: MONTELUKAST SODIUM 10 MG TABLET PO SCH (19:54)
[2023-08-15] MEDS: MIRTAZAPINE TAB 15 MG TAB PO SCH (19:54)
[2023-08-15] MEDS: cefTRIAXone SODIUM 2,000 MG in DEXTROSE 5% 50 ML IV SCH (19:54)
[2023-08-16] MEDS: traMADol HCL 50 MG TABLET PO PRN ×3 (01:57→12:00)
[2023-08-16 06:00] LABS: Hematocrit (blood only) 26.9 % (37.0-47.0); Hemoglobin 8.2 g/dl (12.0-16.0); Mean Corpuscular Hemoglobin 27.7 pg (25.0-34.0); Mean Corpuscular Hgb Conc 30.5 g/dL (32.0-36.0); Mean Corpuscular Volume 90.9 fL (80.0-100.0); Mean Platelet Volume 9.6 fL (9.4-12.4); Nucleated RBC # (auto) 0.04 K/uL (0.00-0.12); Nucleated RBC % (auto) 0.6 %; Platelet Count 437 K/uL (130-400); RDW Coefficient of Variation 17.4 % (11.5-14.5); RDW Standard Deviation 57.1 fL (36.4-46.3); Red Blood Count 2.96 M/uL (4.20-5.40); White Blood Count 6.97 K/ul (4.8-10.8)
[2023-08-16 06:07] LABS: BUN Creatinine Ratio 13.7 (10-20); Calcium 8.1 mg/dl (8.6-10.3); Creatinine Clr Calc Pharmacy 108.3 ml/min; Est GFR (African American) 101.6 ml/min; Est GFR (Non-African American) 87.7 ml/min; Magnesium 2.2 mg/dl (1.7-2.4); Phosphorus 3.7 mg/dl (2.5-4.9); Potassium 3.3 mmol/L (3.5-5.1)
[2023-08-16 06:23] LABS: INR 0.9 (0.9-1.1); Prothrombin Time 10.2 Seconds (9.0-12.0)
[2023-08-16] MEDS ORDERED: POTASSIUM CHLORIDE CRTAB 20 MEQ TABCR PO STA (07:08)
--- NOTE | 2023-08-16 07:10 | Hospitalist Progress Note ---
Date of Service August 16, 2023 Assessment & Plan (1) Hypovolemic shock: (2) Anemia: (3) Acute gastrointestinal bleeding: (4) Anticoagulant long-term use: Plan: Initially admitted to ICU -> stable for PCU now Patient presenting from home with reports of generalized weakness and dark tarry stools. In the ED, found to be hypotensive and Hgb 3.9, INR 2.2 Recent hx of elev. INR as outpt S/p vitamin K, Kcentra, desmopressin in the ED Transfused PRBC, FFP, per ED and ICU PPI drip GI consulted - pt underwent EGD today (08/13/23) - Findings: The examined esophagus was normal. The entire examined stomach was normal. There was a large submucosal nodule likely a lipoma in the gastric body. The duodenal bulb and second portion of the duodenum were normal. Impression: - Normal esophagus. - Normal stomach. 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 - Normal duodenal bulb and second portion of the duodenum. - No specimens collected. Recommendation: - Return patient to hospital hopper for ongoing care. - EUS electively as OP to confirm the lipoma. - Monitor H/H. - If any signs of rebleeding then please obtain a bleeding scan to localize the source. 08/16 - Pt reports abd. pain./ discomfort - increased - CT abdomen w/o con ordered Also seen by GI re: recommendation for warfarin vs. further studies - per GI ok to restart warfarin - however pt hesitant and does not wish to restart the med at this time (5) Elevated lactic acid level: (6) UTI (urinary tract infection): Plan: Lactate 5.9 --> 2.4 Likely secondary to hypoperfusion from profound anemia and hypotension. Possible sepsis given positive UA, mild leukocytosis, WBC 11.9. Currently afebrile. Transfuse PRBC, trend lactate, IV ceftriaxone for UTI urine cultx - posit for e. coli - pansensitive, cont. ceftriaxone for now (7) COPD (chronic obstructive pulmonary disease): (8) Chronic respiratory failure with hypoxia: Plan: No signs of acute exacerbation Continue home inhalers Saturating well on chronic 4 liters of oxygen (9) Chronic diastolic CHF (congestive heart failure): Plan: Appears compensated Consider IV Lasix with PRBC transfusion (10) Paroxysmal A-fib: Plan: Rate controlled on metoprolol Anticoagulated on Coumadin -holding due to profound anemia, hypovolemic shock, GI bleeding (11) Depression, unspecified: (12) Anxiety disorder, unspecified: Plan: Chronic, stable Continue home meds DVT PROPHYLAXIS SCDs due to anemia, GI bleeding Admission and Anticipated Discharge Date Admission Date: August 12, 2023 Subjective Pt seen in follow up of anemia, GI bleed, recent supratherap. INR Hgb in ED 3.9, underwent blood transfusion - received vit. K, desmopressin, kcentra Pt has hx of chronic resp. failure, on suppl. O2 at baseline Underwent EGD - w/o signs of active bleeding Laying in bed in NAD, reports abdomen feels somewhat bloated and uncomfortable, thinks more painful. Hgb stable, above 8 No fever, chills, chest pain, or increased shortness of breath from baseline UA also c/w UTI Pt had multiple stools,do not appear bloody. Tolerating soft diet. Discussed w/ GI - pt seen by GI - ok to restart warfarin - pt hesitant at this time and does not wish to restart the med. CT abdomen w/o con ordered for persistent pain eval. Review of Systems Review of Systems: All systems reviewed & are unremarkable except as noted in Subjective Physical Exam Physical Exam: Constitutional: Morbidly obese F in NAD Respiratory: Occasional wheezes heard. Cardiovascular: RRR, no murmur, no edema Chest: normal inspection of chest Abdomen: normal bowel sounds, soft, obese, tender to palp in lower quadrants, somewhat distended Musculoskeletal: moves extremities Skin: no rashes, warm and dry normal turgor Neurologic: PERRL, EOMI, speech fluent, answers appropriately, moves extremities Psychiatric: A+Ox3, euthymic affect Results & Data Results & Data Vital Signs (Past 12 Hours) Vital Signs Temp Pulse Pulse Resp BP BP Pulse Ox 08/16/23 07:05 36.9 C 84 17 112/73 95 08/16/23 02:00 36.8 C 87 20 112/73 96 08/15/23 23:53 36.9 C 92 H 16 121/69 92 08/15/23 23:11 80 08/15/23 20:02 O2 Del Method O2 Flow Rate 08/16/23 07:05 Room Air 08/16/23 02:00 Nasal Cannula 4 10/01/23 23:53 Nasal Cannula 4 08/15/23 23:11 08/15/23 20:02 Nasal Cannula 4 Laboratory Results 08/16/23 08/16/23 08/16/23 Range/Units 05:16 05:16 05:16 WBC 6.97 (4.8-10.8) K/ul RBC 2.96 L (4.20-5.40) M/uL Hgb 8.2 L (12.0-16.0) g/dl Hct 26.9 L (37.0-47.0) % MCV 90.9 (80.0-100.0) fL MCH 27.7 (25.0-34.0) pg MCHC 30.5 L (32.0-36.0) g/dL RDW Std Deviation 57.1 H (36.4-46.3) fL RDW Coeff of Ursula 17.4 H (11.5-14.5) % Plt Count 437 H (130-400) K/uL MPV 9.6 (9.4-12.4) fL Immature Gran % (Auto) % Neut % (Auto) % Lymph % (Auto) % [place] % (Auto) % Eos % (Auto) % Baso % (Auto) % Neut # (Auto) (1.40-6.50) K/uL Lymph # (Auto) (1.20-3.40) K/uL [place] # (Auto) (0.11-0.59) K/uL Eos # (Auto) (0.00-0.50) K/uL Baso # (Auto) (0.00-0.20) K/uL Immature Gran # (Auto) (0.01-0.20) K/uL Absolute Nucleated RBC 0.04 (0.00-0.12) K/uL Nucleated RBC % (auto) 0.6 % PT 10.2 (9.0-12.0) Seconds INR 0.9 (0.9-1.1) Sodium 138 (136-145) mmol/L Potassium 3.3 L (3.5-5.1) mmol/L Chloride 102 (98-107) mmol/L Carbon Dioxide 32 (21-32) mmol/L Anion Gap 4 (3-11) BUN 10 (6-23) mg/dl Creatinine 0.73 (0.6-1.2) mg/dl Est Cr Clr Drug Dosing 108.3 ml/min Est GFR ( Amer) 101.6 ml/min Est GFR (Non-Af Amer) 87.7 ml/min BUN/Creatinine Ratio 13.7 (10-20) Glucose 99 (70-99(Fasting)) mg/dl Calcium 8.1 L (8.6-10.3) mg/dl Phosphorus 3.7 (2.5-4.9) mg/dl Magnesium 2.2 (1.7-2.4) mg/dl Total Bilirubin (0.2-1.0) mg/dl AST (13-39) U/L ALT (7-52) U/L Alkaline Phosphatase (34-104) U/L Total Protein (6.0-8.3) gm/dl Albumin (3.4-5.0) gm/dl Globulin (2.5-4.0) gm/dl Albumin/Globulin Ratio (0.9-2) Blood Type Antibody Screen Crossmatch 08/15/23 08/15/23 08/15/23 Range/Units 16:31 06:33 06:33 WBC (4.8-10.8) K/ul RBC (4.20-5.40) M/uL Hgb 9.3 L (12.0-16.0) g/dl Hct 30.7 L (37.0-47.0) % MCV (80.0-100.0) fL MCH (25.0-34.0) pg MCHC (32.0-36.0) g/dL RDW Std Deviation (36.4-46.3) fL RDW Coeff of Ursula (11.5-14.5) % Plt Count (130-400) K/uL MPV (9.4-12.4) fL Immature Gran % (Auto) % Neut % (Auto) % Lymph % (Auto) % [place] % (Auto) % Eos % (Auto) % Baso % (Auto) % Neut # (Auto) (1.40-6.50) K/uL Lymph # (Auto) (1.20-3.40) K/uL [place] # (Auto) (0.11-0.59) K/uL Eos # (Auto) (0.00-0.50) K/uL Baso # (Auto) (0.00-0.20) K/uL Immature Gran # (Auto) (0.01-0.20) K/uL Absolute Nucleated RBC (0.00-0.12) K/uL Nucleated RBC % (auto) % PT 10.3 (9.0-12.0) Seconds INR 0.9 (0.9-1.1) Sodium 139 (136-145) mmol/L Potassium 3.6 (3.5-5.1) mmol/L Chloride 102 (98-107) mmol/L Carbon Dioxide 32 (21-32) mmol/L Anion Gap 5 (3-11) BUN 11 (6-23) mg/dl Creatinine 0.67 (0.6-1.2) mg/dl Est Cr Clr Drug Dosing 118.0 ml/min Est GFR ( Amer) 108.4 ml/min Est GFR (Non-Af Amer) 93.5 ml/min BUN/Creatinine Ratio 16.4 (10-20) Glucose 109 H (70-99(Fasting)) mg/dl Calcium 7.9 L (8.6-10.3) mg/dl Phosphorus (2.5-4.9) mg/dl Magnesium 2.3 (1.7-2.4) mg/dl Total Bilirubin 0.4 (0.2-1.0) mg/dl AST 16 (13-39) U/L ALT 17 (7-52) U/L Alkaline Phosphatase 82 (34-104) U/L Total Protein 5.6 L (6.0-8.3) gm/dl Albumin 3.1 L (3.4-5.0) gm/dl Globulin 2.5 (2.5-4.0) gm/dl Albumin/Globulin Ratio 1.2 (0.9-2) Blood Type Antibody Screen Crossmatch 08/15/23 08/12/23 Range/Units 06:33 16:49 WBC 6.47 (4.8-10.8) K/ul RBC 3.15 L (4.20-5.40) M/uL Hgb 8.7 L (12.0-16.0) g/dl Hct 29.1 L (37.0-47.0) % MCV 92.4 (80.0-100.0) fL MCH 27.6 (25.0-34.0) pg MCHC 29.9 L (32.0-36.0) g/dL RDW Std Deviation 58.9 H (36.4-46.3) fL RDW Coeff of Ursula 17.9 H (11.5-14.5) % Plt Count 469 H (130-400) K/uL MPV 9.4 (9.4-12.4) fL Immature Gran % (Auto) 1.2 % Neut % (Auto) 63.4 % Lymph % (Auto) 18.4 % [place] % (Auto) 13.1 % Eos % (Auto) 3.7 % Baso % (Auto) 0.2 % Neut # (Auto) 4.10 (1.40-6.50) K/uL Lymph # (Auto) 1.19 L (1.20-3.40) K/uL [place] # (Auto) 0.85 H (0.11-0.59) K/uL Eos # (Auto) 0.24 (0.00-0.50) K/uL Baso # (Auto) 0.01 (0.00-0.20) K/uL Immature Gran # (Auto) 0.08 (0.01-0.20) K/uL Absolute Nucleated RBC 0.10 (0.00-0.12) K/uL Nucleated RBC % (auto) 1.5 % PT (9.0-12.0) Seconds INR (0.9-1.1) Sodium (136-145) mmol/L Potassium (3.5-5.1) mmol/L Chloride (98-107) mmol/L Carbon Dioxide (21-32) mmol/L Anion Gap (3-11) BUN (6-23) mg/dl Creatinine (0.6-1.2) mg/dl Est Cr Clr Drug Dosing ml/min Est GFR ( Amer) ml/min Est GFR (Non-Af Amer) ml/min BUN/Creatinine Ratio (10-20) Glucose (70-99(Fasting)) mg/dl Calcium (8.6-10.3) mg/dl Phosphorus (2.5-4.9) mg/dl Magnesium (1.7-2.4) mg/dl Total Bilirubin (0.2-1.0) mg/dl AST (13-39) U/L ALT (7-52) U/L Alkaline Phosphatase (34-104) U/L Total Protein (6.0-8.3) gm/dl Albumin (3.4-5.0) gm/dl Globulin (2.5-4.0) gm/dl Albumin/Globulin Ratio (0.9-2) Blood Type O Negative Antibody Screen NEGATIVE Crossmatch See Detail Medications Administered Current Inpatient Medications Acetaminophen (Acetaminophen 500 Mg Tab) 1,000 mg PO Q8H PRN PRN Reason: Pain Stop: 09/12/23 09:37 Last Admin: 08/13/23 18:26 Dose: 1,000 mg Acetaminophen/Codeine Phosphate (Acetaminophen W/Codeine #3 1 Tab) 1 tab PO Q6 PRN PRN Reason: Moderate Pain (Scale Score 5-6) Stop: 09/13/23 14:11 Albuterol (Albuterol Hfa 8 Gm Inhaler) 2 puffs INH QID PRN PRN Reason: sob Stop: 09/13/23 14:11 Last Admin: 08/15/23 13:24 Dose: 2 puffs Baclofen (Baclofen 10 Mg Tab) 10 mg PO BID PRN PRN Reason: back spasm Stop: 09/12/23 20:59 Buspirone HCl (Buspirone 5 Mg Tab) 20 mg PO AMHS MARY Stop: 09/11/23 20:59 Last Admin: 08/15/23 19:54 Dose: 20 mg Fluticasone/Vilanterol (Fluticasone/Vilanterol 100/25mcg 14 Puffs/Inhaler) 1 puffs INH DAILY MARY Stop: 09/11/23 20:29 Last Admin: 08/15/23 08:15 Dose: 1 puffs Ceftriaxone Sodium 2,000 mg/ (Dextrose) 70 mls @ 100 mls/hr IV Q24H MARY; Protocol Stop: 08/23/23 18:59 Last Infusion: 08/15/23 20:35 Dose: Infused Lactobacillus Acidophilus (Advanced Probiotic 1250 Mg Capsule) 2 cap PO DAILY MARY Stop: 09/14/23 16:14 Last Admin: 08/15/23 16:42 Dose: 2 cap Lorazepam (Lorazepam 0.5 Mg Tab) 0.5 mg PO TID PRN PRN Reason: Anxiety Stop: 09/12/23 18:12 Last Admin: 08/15/23 19:54 Dose: 0.5 mg Lorazepam (Lorazepam 0.5 Mg Tab) 0.5 mg PO Q8 PRN PRN Reason: Anxiety Stop: 09/13/23 14:11 Last Admin: 08/15/23 12:25 Dose: 0.5 mg Metoprolol Succinate (Metoprolol Succ 25mg Ext Rel Tab) 25 mg PO QAM MARY Stop: 09/13/23 14:14 Last Admin: 08/15/23 08:14 Dose: 25 mg Miconazole Nitrate (Miconazole Nitrate 2% Cr 30 Gm Tube) 1 appln EXT BID MARY Stop: 09/13/23 20:59 Last Admin: 08/15/23 19:55 Dose: 1 appln Mirtazapine (Mirtazapine Tab 15 Mg Tab) 30 mg PO HS MARY Stop: 09/11/23 20:59 Last Admin: 08/15/23 19:54 Dose: 30 mg Montelukast Sodium (Montelukast Sodium 10 Mg Tablet) 10 mg PO HS MARY Stop: 09/11/23 20:59 Last Admin: 08/15/23 19:54 Dose: 10 mg Oxybutynin Chloride (Oxybutynin Chloride Xl 5 Mg Tabcr) 10 mg PO QAM MARY; Protocol Stop: 09/12/23 08:59 Last Admin: 08/15/23 08:14 Dose: 10 mg Potassium Chloride (Potassium Chloride Crtab 20 Meq Tabcr) 40 meq PO NOW STA Stop: 08/16/23 07:09 Tramadol HCl (Tramadol Hcl 50 Mg Tablet) 50 mg PO Q4H PRN PRN Reason: Pain Stop: 09/12/23 15:03 Last Admin: 08/16/23 01:57 Dose: 50 mg Umeclidinium [place] (Umeclidinium [place] 62.5mcg/Blister 7 Puffs/Inhaler) 1 puffs INH DAILY MARY Stop: 09/12/23 08:59 Last Admin: 08/15/23 08:15 Dose: 1 puffs
[2023-08-16] MEDS: LORazepam 0.5 MG TAB PO PRN ×2 (07:47→15:21)
[2023-08-16] MEDS: FLUTICASONE/VILANTEROL 100/25MCG 14 PUFFS/INHALER INH SCH (07:51)
[2023-08-16] MEDS: busPIRone 5 MG TAB PO SCH ×2 (07:52→20:24)
[2023-08-16] MEDS: ADVANCED PROBIOTIC 1250 MG CAPSULE PO SCH (07:52)
[2023-08-16] MEDS: METOPROLOL SUCC 25MG EXT REL TAB PO SCH (07:53)
[2023-08-16] MEDS: MICONAZOLE NITRATE 2% CR 30 GM TUBE EXT SCH ×2 (07:54→20:25)
[2023-08-16] MEDS: OXYBUTYNIN CHLORIDE XL 5 MG TABCR PO SCH (07:54)
[2023-08-16] MEDS: UMECLIDINIUM BROMIDE 62.5MCG/BLISTER 7 PUFFS/INHALER INH SCH (07:55)
--- NOTE | 2023-08-16 09:59 | Gastroenterology Progress Note ---
Date of Service August 16, 2023 Assessment & Plan (1) Acute blood loss anemia: Plan 63 year old female w/ history of COPD on O2, Afib on Coumadin, CHF, RUFINA, obesity, stroke admitted w/ anemia, hgb 3.9, INR in outpt setting was >9 s/p 4U PRBC transfusion, INR reversed now to 1 s/p EGD w/ no source of UGI bleeding. She has remained hemodynamically stable, with brown stools. GI was asked regarding clearance to restart coumadin I discussed this with the patient and she DOES NOT want to restart this medication If she is it restart, recommend discussion with her prescriber, close monitoring of INR and keep INR < 1.9 No current evidence of GI bleeding, no contraindication if medication is medically required If rebleeding or drop in HGB, recommend bleeding scan. Additional recommendations/plans as per EGD report. Will sign off. Recall as needed. Thank you for allowing us to participate in the care of this patient. Please call with any acute changes, questions or concerns. Please see addendum below with additional recommendation from my supervising physician. Admission and Anticipated Discharge Date Admission Date: August 12, 2023 Supervising Physician Co-Signing Physician Notes Attending attestation I agree with the findings and above by our mid-level provider COY Mariano, with the following additions: No signs of gi bleeding If bleeding is identified, then will need colonoscopy +/- small bowel evaluation Subjective GI was asked to re-evaluate. Presented with anemia, melena S/p RBC x 4 units HGB 3.9 --> 8.2 HGB has been stable since admission EGD negative. BUN normal. Had brown stool this AM. CTP 2022: No acute abnormalities are seen. Status post cholecystectomy. Normal appendix. EGD 2022: - Normal esophagus. - Normal stomach. 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 - Normal duodenal bulb and second portion of the duodenum. - No specimens collected. Colon 2022: The perianal and digital rectal examinations were normal. Multiple small and large-mouthed diverticula were found in the sigmoid colon and descending colon. A tattoo was seen at the splenic flexure. A post-polypectomy scar was found at the tattoo site. There was no evidence of residual polyp tissue. A tattoo was seen in the proximal transverse colon. A post-polypectomy scar was found at the tattoo site. There was a 2 mm residual polyp at the edge of the scar removed by biopsy forceps. There was a 6 mm residual polyp at the edge of the scare removed by hot snare and clipped x 2. A 3 mm polyp was found in the transverse colon. The polyp was sessile. The polyp was removed with a cold snare. Resection and retrieval were complete. A single small angiodysplastic lesion without bleeding was found in the ascending colon. Hemorrhoids on retroflexion. Otherwise normal exam. Review of Systems Review of Systems: All systems reviewed & are unremarkable except as noted in HPI & below Physical Exam Constitutional: WD/WN, vitals as above Respiratory: normal respiratory effort, lungs clear to auscultation Cardiovascular: Rate/Rhythm: regular rate and regular rhythm Gastrointestinal (Abdomen): normal bowel sounds, soft, nontender, no hepatosplenomegaly Skin: no rashes, warm and dry Results & Data Vital Signs (Past 12 Hours) Vital Signs Temp Pulse Pulse Resp BP BP Pulse Ox 08/16/23 07:39 08/16/23 07:05 36.9 C 84 17 112/73 95 08/16/23 02:00 36.8 C 87 20 112/73 96 08/15/23 23:53 36.9 C 92 H 16 121/69 92 08/15/23 23:11 80 O2 Del Method O2 Flow Rate 08/16/23 07:39 Nasal Cannula 4 08/16/23 07:05 Room Air 08/16/23 02:00 Nasal Cannula 4 08/15/23 23:53 Nasal Cannula 4 08/15/23 23:11 Laboratory Results 08/16/23 08/16/23 08/16/23 Range/Units 05:16 05:16 05:16 WBC 6.97 (4.8-10.8) K/ul RBC 2.96 L (4.20-5.40) M/uL Hgb 8.2 L (12.0-16.0) g/dl Hct 26.9 L (37.0-47.0) % MCV 90.9 (80.0-100.0) fL MCH 27.7 (25.0-34.0) pg MCHC 30.5 L (32.0-36.0) g/dL RDW Std Deviation 57.1 H (36.4-46.3) fL RDW Coeff of Ursula 17.4 H (11.5-14.5) % Plt Count 437 H (130-400) K/uL MPV 9.6 (9.4-12.4) fL Absolute Nucleated RBC 0.04 (0.00-0.12) K/uL Nucleated RBC % (auto) 0.6 % PT 10.2 (9.0-12.0) Seconds INR 0.9 (0.9-1.1) Sodium 138 (136-145) mmol/L Potassium 3.3 L (3.5-5.1) mmol/L Chloride 102 (98-107) mmol/L Carbon Dioxide 32 (21-32) mmol/L Anion Gap 4 (3-11) BUN 10 (6-23) mg/dl Creatinine 0.73 (0.6-1.2) mg/dl Est Cr Clr Drug Dosing 108.3 ml/min Est GFR ( Amer) 101.6 ml/min Est GFR (Non-Af Amer) 87.7 ml/min BUN/Creatinine Ratio 13.7 (10-20) Glucose 99 (70-99(Fasting)) mg/dl Calcium 8.1 L (8.6-10.3) mg/dl Phosphorus 3.7 (2.5-4.9) mg/dl Magnesium 2.2 (1.7-2.4) mg/dl 08/15/23 Range/Units 16:31 WBC (4.8-10.8) K/ul RBC (4.20-5.40) M/uL Hgb 9.3 L (12.0-16.0) g/dl Hct 30.7 L (37.0-47.0) % MCV (80.0-100.0) fL MCH (25.0-34.0) pg MCHC (32.0-36.0) g/dL RDW Std Deviation (36.4-46.3) fL RDW Coeff of Ursula (11.5-14.5) % Plt Count (130-400) K/uL MPV (9.4-12.4) fL Absolute Nucleated RBC (0.00-0.12) K/uL Nucleated RBC % (auto) % PT (9.0-12.0) Seconds INR (0.9-1.1) Sodium (136-145) mmol/L Potassium (3.5-5.1) mmol/L Chloride (98-107) mmol/L Carbon Dioxide (21-32) mmol/L Anion Gap (3-11) BUN (6-23) mg/dl Creatinine (0.6-1.2) mg/dl Est Cr Clr Drug Dosing ml/min Est GFR ( Amer) ml/min Est GFR (Non-Af Amer) ml/min BUN/Creatinine Ratio (10-20) Glucose (70-99(Fasting)) mg/dl Calcium (8.6-10.3) mg/dl Phosphorus (2.5-4.9) mg/dl Magnesium (1.7-2.4) mg/dl
--- NOTE | 2023-08-16 14:05 | CT Scan Report ---
CT SCAN OF THE ABDOMEN AND PELVIS WITHOUT IV CONTRAST CLINICAL HISTORY: Chaparro abdominal pain. Distention. COMPARISON STUDY: Abdominal CT dated 08/12/2023. TECHNIQUE: CT scan of the abdomen and pelvis is performed from the lung bases to the proximal femora. Images are reviewed in the axial, sagittal, and coronal planes. IV contrast was not administered for this examination. Note that the examination was performed in suboptimal fashion without oral and IV contrast. A dose lowering technique was utilized adhering to the principles of ALARA. CT DOSE: 1577.75 mGy.cm FINDINGS: Lung bases: The heart is normal in size and without pericardial effusion. The lung bases are clear no ting mild dependent atelectasis. Liver: The unenhanced liver is normal in size, contour, and attenuation. There is no intrahepatic merly iary ductal dilatation. Gallbladder: Surgically absent noting clips in the gallbladder fossa. Spleen: Normal in size and attenuation. Pancreas: The unenhanced pancreas is mildly atrophic and grossly unremarkable. Adrenal glands: A 1.5 cm left adrenal nodule meets criteria for a fat-containing adenoma. The right a drenal gland is normal in appearance. Kidneys: The unenhanced kidneys demonstrate mild cortical atrophy and are without hydronephrosis. Foc i of cortical scarring are seen on the left. No renal calculi are identified. There is no evidence of contour deforming renal mass lesion. Abdominal vasculature: The abdominal aorta is normal in course and caliber noting mild atheroscleroti c calcification. Bowel: There is no bowel obstruction. A metallic foreign body is present within the right colon on im age #[id number]. The appendix is well-visualized and normal. Peritoneum: There is no intraperitoneal free air or abdominal ascites. Lymphadenopathy: None. Pelvic viscera: The bladder is normal as visualized. The uterus is surgically absent. No adnexal lesi on is seen. Skeletal structures: The skeletal structures are osteopenic. There is mild to moderate lumbosacral sp ondylosis. Arthritic change is noted in the hips. No lytic or blastic lesions are seen. IMPRESSION: No acute infectious or inflammatory findings are identified in the abdomen or pelvis. ACT 112: Negative or not required by law. Electronically signed by: Donavon Littlejohn M.D. 08/16/2023 2:03 PM
[2023-08-16] MEDS: ALBUTEROL HFA 8 GM INHALER INH PRN (18:03)
[2023-08-16 18:19] LABS: Hematocrit (blood only) 28.3 % (37.0-47.0); Hemoglobin 8.5 g/dl (12.0-16.0)
[2023-08-16] MEDS: ALBUTEROL 0.083% NEBU SOLN 3 ML VIAL NEB SCH (19:34)
[2023-08-16] MEDS: cefTRIAXone SODIUM 2,000 MG in DEXTROSE 5% 50 ML IV SCH (19:45)
[2023-08-16] MEDS: MIRTAZAPINE TAB 15 MG TAB PO SCH (20:26)
[2023-08-16] MEDS: MONTELUKAST SODIUM 10 MG TABLET PO SCH (20:26)
[2023-08-17] MEDS: ALBUTEROL 0.083% NEBU SOLN 3 ML VIAL NEB SCH ×4 (07:21→19:34)
[2023-08-17] MEDS: LORazepam 0.5 MG TAB PO PRN ×3 (07:39→23:12)
[2023-08-17] MEDS: traMADol HCL 50 MG TABLET PO PRN ×3 (07:39→23:11)
[2023-08-17] MEDS: METOPROLOL SUCC 25MG EXT REL TAB PO SCH (07:40)
[2023-08-17] MEDS: busPIRone 5 MG TAB PO SCH ×2 (07:41→21:06)
[2023-08-17] MEDS: ADVANCED PROBIOTIC 1250 MG CAPSULE PO SCH (07:41)
[2023-08-17] MEDS: UMECLIDINIUM BROMIDE 62.5MCG/BLISTER 7 PUFFS/INHALER INH SCH (07:42)
[2023-08-17] MEDS: FLUTICASONE/VILANTEROL 100/25MCG 14 PUFFS/INHALER INH SCH (07:42)
[2023-08-17] MEDS: OXYBUTYNIN CHLORIDE XL 5 MG TABCR PO SCH (07:43)
[2023-08-17] MEDS: MICONAZOLE NITRATE 2% CR 30 GM TUBE EXT SCH ×2 (07:46→21:07)
[2023-08-17 08:13] LABS: Hematocrit (blood only) 29.1 % (37.0-47.0); Hemoglobin 8.5 g/dl (12.0-16.0); Mean Corpuscular Hemoglobin 27.2 pg (25.0-34.0); Mean Corpuscular Hgb Conc 29.2 g/dL (32.0-36.0); Mean Corpuscular Volume 93.3 fL (80.0-100.0); Mean Platelet Volume 9.1 fL (9.4-12.4); Nucleated RBC # (auto) 0.02 K/uL (0.00-0.12); Nucleated RBC % (auto) 0.2 %; Platelet Count 516 K/uL (130-400); RDW Coefficient of Variation 17.3 % (11.5-14.5); RDW Standard Deviation 58.4 fL (36.4-46.3); Red Blood Count 3.12 M/uL (4.20-5.40); White Blood Count 8.83 K/ul (4.8-10.8)
[2023-08-17 08:37] LABS: BUN Creatinine Ratio 14.3 (10-20); Creatinine Clr Calc Pharmacy 126.1 ml/min; Est GFR (African American) 110.6 ml/min; Est GFR (Non-African American) 95.5 ml/min; Phosphorus 3.2 mg/dl (2.5-4.9); Potassium 4.1 mmol/L (3.5-5.1)
[2023-08-17] MEDS ORDERED: hydrOXYzine HCl 25 MG TAB PO STA ×2 (10:21→16:34)
--- NOTE | 2023-08-17 10:40 | Hospitalist Progress Note ---
Date of Service August 17, 2023 Assessment & Plan (1) Hypovolemic shock: (2) Anemia: (3) Acute gastrointestinal bleeding: (4) Anticoagulant long-term use: Plan: Initially admitted to ICU -> transferred to PCU next day when hemodynamically stable Patient presenting from home with reports of generalized weakness and dark tarry stools. In the ED, found to be hypotensive and Hgb 3.9, INR 2.2 Recent hx of elev. INR as outpt S/p vitamin K, Kcentra, desmopressin in the ED Transfused PRBC, FFP, per ED and ICU PPI drip GI consulted - pt underwent EGD on (08/13/23) - Findings: The examined esophagus was normal. The entire examined stomach was normal. There was a large submucosal nodule likely a lipoma in the gastric body. The duodenal bulb and second portion of the duodenum were normal. Impression: - Normal esophagus. - Normal stomach. 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 - Normal duodenal bulb and second portion of the duodenum. - No specimens collected. Recommendation: - Return patient to hospital hopper for ongoing care. - EUS electively as OP to confirm the lipoma. - Monitor H/H. - If any signs of rebleeding then please obtain a bleeding scan to localize the source. 08/16 - Pt reports abd. pain./ discomfort - increased - CT abdomen w/o con ordered FINDINGS: Lung bases: The heart is normal in size and without pericardial effusion. The lung bases are clear noting mild dependent atelectasis. Liver: The unenhanced liver is normal in size, contour, and attenuation. There is no intrahepatic biliary ductal dilatation. Gallbladder: Surgically absent noting clips in the gallbladder fossa. Spleen: Normal in size and attenuation. Pancreas: The unenhanced pancreas is mildly atrophic and grossly unremarkable. Adrenal glands: A 1.5 cm left adrenal nodule meets criteria for a fat-containing adenoma. The right adrenal gland is normal in appearance. Kidneys: The unenhanced kidneys demonstrate mild cortical atrophy and are without hydronephrosis. Foci of cortical scarring are seen on the left. No renal calculi are identified. There is no evidence of contour deforming renal mass lesion. Abdominal vasculature: The abdominal aorta is normal in course and caliber noting mild atherosclerotic calcification. Bowel: There is no bowel obstruction. A metallic foreign body is present within the right colon on image #155. The appendix is well-visualized and normal. Peritoneum: There is no intraperitoneal free air or abdominal ascites. Lymphadenopathy: None. Pelvic viscera: The bladder is normal as visualized. The uterus is surgically absent. No adnexal lesion is seen. Skeletal structures: The skeletal structures are osteopenic. There is mild to moderate lumbosacral spondylosis. Arthritic change is noted in the hips. No lyt ic or blastic lesions are seen. IMPRESSION: No acute infectious or inflammatory findings are identified in the abdomen or pelvis. Discussed findings w/ radiologist. Also seen by GI on 08/16 re: recommendation for warfarin vs. further studies - per GI ok to restart warfarin - however pt hesitant and does not wish to restart the med at this time Reviewed cardiology consult note from previous admission in 07/2023 - the diagnosis of atrial fibrillation first appears in her chart in 2009 and is associated with her Coumadin therapy. The patient however is unaware of the term atrial fibrillation. I had been unable to find any definite EKG evidence of atrial fibrillation but the patient did have a documented history of recurrent stroke events and transesophageal echocardiogram performed in [place] in 2016 revealed an atrial septal aneurysm and PFO and ongoing anticoagulation for secondary prevention of stroke was recommended. It appears that she is been on Coumadin since proximally 2003. 08/17 Stroke like symptoms This AM notified by PT that pt is feeling dizzy, has facial numbness, and vision changes and reports to PT that she feels like having a stroke. Pt has hx of prior CVAs reportedly - I ordered stat CT head and came to evaluate pt immediately. She was awake, alert and answering appropriately, no facial droop, speech clear, moving all extremities and following commands. However she tells me that "she can't see half of me". And she is feeling very anxious - pt reports chronic anxiety. I had pt cover one eye at a time she continued to report that she can only see half of me (pt's right side). Talked to pt's RN and asked to call stroke alert for the pt. In addition ordered CT angio head and neck. Discussed w/[facility] stroke neuro at the bedside - would not recommend thrombolytics given pt admitted with profound anemia / GI bleed. Per his exam pt was only deficient in one eye. Recommends brain MRI, ophthalmology eval and migraine cocktail. MRI and ophtho consult ordered. CT head - negative [place] head/ neck - 1. 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 2. Otherwise unremarkable CTA of the head and neck. 3. Chronic left MCA infarct. (5) Elevated lactic acid level: (6) UTI (urinary tract infection): Plan: Lactate 5.9 --> 2.4 Likely secondary to hypoperfusion from profound anemia and hypotension. Possible sepsis given positive UA, mild leukocytosis, WBC 11.9. Currently afebrile. Transfuse PRBC, trend lactate, IV ceftriaxone for UTI urine cultx - posit for e. coli - pansensitive, cont. ceftriaxone for now (7) COPD (chronic obstructive pulmonary disease): (8) Chronic respiratory failure with hypoxia: Plan: No signs of acute exacerbation Continue home inhalers Saturating well on chronic 4 liters of oxygen (9) Chronic diastolic CHF (congestive heart failure): Plan: Appears compensated Consider IV Lasix with PRBC transfusion (10) Paroxysmal A-fib: Plan: Rate controlled on metoprolol Anticoagulated on Coumadin -holding due to profound anemia, hypovolemic shock, GI bleeding (11) Depression, unspecified: (12) Anxiety disorder, unspecified: Plan: Chronic, stable Continue home meds DVT PROPHYLAXIS SCDs due to anemia, GI bleeding Admission and Anticipated Discharge Date Admission Date: August 12, 2023 Subjective Pt seen in follow up of anemia, GI bleed, recent supratherap. INR Hgb in ED 3.9, underwent blood transfusion - received vit. K, desmopressin, jaylin entra Pt has hx of chronic resp. failure, on suppl. O2 at baseline Underwent EGD - w/o signs of active bleeding This AM notified by PT that pt is feeling dizzy, has facial numbness, and vision changes and reports to PT that she feels like having a stroke. Pt has hx of prior CVAs reportedly - I ordered stat CT head and came to evaluate pt immediately. She was awake, alert and answering appropriately, no facial droop, speech clear, moving all extremities and following commands. However she tells me that "she can't see half of me". And she is feeling very anxious - pt reports chronic anxiety. I had pt cover one eye at a time she continued to report that she can only see half of me (pt's right side). Talked to pt's RN and asked to call stroke alert for the pt. In addition ordered CT angio head and neck. Discussed w/[facility] stroke neuro at the bedside - would not recommend thrombolytics given pt admitted with profound anemia / GI bleed. Per his exam pt was only deficient in one eye. Recommends brain MRI, ophthalmology eval and migraine cocktail. MRI and ophtho consult ordered. No fever, chills, chest pain, or increased shortness of breath from baseline Pt had multiple stools,do not appear bloody. Tolerating soft diet. Hgb stable. Discussed w/ GI yesterday - pt seen by GI - ok to restart warfarin - pt hesitant and does not wish to restart the med. Update: Pt's left hand infiltrated with IV dye earlier - hand was elevated and ice was applied by nursing staff. Notified that her hand got much more swollen in past few hours. On my evaluation left hand is swollen, tense and so is left forearm, pt has difficulty moving her fingers. Dr. Pelayo contacted and discussed w/ over the phone for evaluation r/o compartment syndrome. Review of Systems Review of Systems: All systems reviewed & are unremarkable except as noted in Subjective Physical Exam Physical Exam: Constitutional: Morbidly obese F in NAD Respiratory: Occasional wheezes heard. Cardiovascular: RRR, no murmur, no edema Chest: normal inspection of chest Abdomen: normal bowel sounds, soft, obese, tender to palp in lower quadrants, somewhat distended Musculoskeletal: moves extremities Skin: no rashes, warm and dry normal turgor Neurologic: PERRL, EOMI, speech fluent, answers appropriately, moves extremities Psychiatric: A+Ox3, euthymic affect Results & Data Results & Data Vital Signs (Past 12 Hours) Vital Signs Temp Pulse Pulse Pulse Resp BP BP 08/17/23 09:12 08/17/23 07:22 85 20 08/17/23 07:05 36.5 C 88 15 105/70 08/17/23 03:46 37.0 C 85 20 93/60 L 08/16/23 23:00 85 08/16/23 22:56 36.9 C 88 18 146/85 H Pulse Ox O2 Del Method O2 Flow Rate 08/17/23 09:12 Nasal Cannula 4 08/17/23 07:22 94 Nasal Cannula 5 08/17/23 07:05 91 Nasal Cannula 5 08/17/23 03:46 92 Nasal Cannula 5 08/16/23 23:00 08/16/23 22:56 93 Nasal Cannula 4 Laboratory Results 08/17/23 08/17/23 08/16/23 Range/Units 07:54 07:54 17:40 WBC 8.83 (4.8-10.8) K/ul RBC 3.12 L (4.20-5.40) M/uL Hgb 8.5 L 8.5 L (12.0-16.0) g/dl Hct 29.1 L 28.3 L (37.0-47.0) % MCV 93.3 (80.0-100.0) fL MCH 27.2 (25.0-34.0) pg MCHC 29.2 L (32.0-36.0) g/dL RDW Std Deviation 58.4 H (36.4-46.3) fL RDW Coeff of Ursula 17.3 H (11.5-14.5) % Plt Count 516 H (130-400) K/uL MPV 9.1 L (9.4-12.4) fL Absolute Nucleated RBC 0.02 (0.00-0.12) K/uL Nucleated RBC % (auto) 0.2 % Sodium 139 (136-145) mmol/L Potassium 4.1 D (3.5-5.1) mmol/L Chloride 103 (98-107) mmol/L Carbon Dioxide 32 (21-32) mmol/L Anion Gap 4 (3-11) BUN 9 (6-23) mg/dl Creatinine 0.63 (0.6-1.2) mg/dl Est Cr Clr Drug Dosing 126.1 ml/min Est GFR ( Amer) 110.6 ml/min Est GFR (Non-Af Amer) 95.5 ml/min BUN/Creatinine Ratio 14.3 (10-20) Glucose 117 H (70-99(Fasting)) mg/dl Calcium 8.0 L (8.6-10.3) mg/dl Phosphorus 3.2 (2.5-4.9) mg/dl Magnesium 2.0 (1.7-2.4) mg/dl Medications Administered Current Inpatient Medications Acetaminophen (Acetaminophen 500 Mg Tab) 1,000 mg PO Q8H PRN PRN Reason: Pain Stop: 09/12/23 09:37 Last Admin: 08/13/23 18:26 Dose: 1,000 mg Acetaminophen/Codeine Phosphate (Acetaminophen W/Codeine #3 1 Tab) 1 tab PO Q6 PRN PRN Reason: Moderate Pain (Scale Score 5-6) Stop: 09/13/23 14:11 Albuterol (Albuterol Hfa 8 Gm Inhaler) 2 puffs INH QID PRN PRN Reason: sob Stop: 09/13/23 14:11 Last Admin: 08/16/23 18:03 Dose: 2 puffs Albuterol (Albuterol 0.083% Nebu Soln 3 Ml Vial) 2.5 mg NEB QIDR MARY; Protocol Stop: 09/15/23 18:59 Last Admin: 08/17/23 07:21 Dose: 2.5 mg Baclofen (Baclofen 10 Mg Tab) 10 mg PO BID PRN PRN Reason: back spasm Stop: 09/12/23 20:59 Last Admin: 08/16/23 14:12 Dose: 10 mg Buspirone HCl (Buspirone 5 Mg Tab) 20 mg PO AMHS [facility] Stop: 09/11/23 20:59 Last Admin: 08/17/23 07:41 Dose: 20 mg Fluticasone/Vilanterol (Fluticasone/Vilanterol 100/25mcg 14 Puffs/Inhaler) 1 puffs INH DAILY [facility] Stop: 09/11/23 20:29 Last Admin: 08/17/23 07:42 Dose: 1 puffs Ceftriaxone Sodium 2,000 mg/ (Dextrose) 70 mls @ 100 mls/hr IV Q24H [facility]; Protocol Stop: 08/23/23 18:59 Last Infusion: 08/16/23 20:29 Dose: Infused Lactobacillus Acidophilus (Advanced Probiotic 1250 Mg Capsule) 2 cap PO DAILY MARY Stop: 09/14/23 16:14 Last Admin: 08/17/23 07:41 Dose: 2 cap Lorazepam (Lorazepam 0.5 Mg Tab) 0.5 mg PO TID PRN PRN Reason: Anxiety Stop: 09/12/23 18:12 Last Admin: 08/17/23 07:39 Dose: 0.5 mg Lorazepam (Lorazepam 0.5 Mg Tab) 0.5 mg PO Q8 PRN PRN Reason: Anxiety Stop: 09/13/23 14:11 Last Admin: 08/15/23 12:25 Dose: 0.5 mg Metoprolol Succinate (Metoprolol Succ 25mg Ext Rel Tab) 25 mg PO QAM [facility] Stop: 09/13/23 14:14 Last Admin: 08/17/23 07:40 Dose: 25 mg Miconazole Nitrate (Miconazole Nitrate 2% Cr 30 Gm Tube) 1 appln EXT BID MARY Stop: 09/13/23 20:59 Last Admin: 08/17/23 07:46 Dose: 1 appln Mirtazapine (Mirtazapine Tab 15 Mg Tab) 30 mg PO HS [facility] Stop: 09/11/23 20:59 Last Admin: 08/16/23 20:26 Dose: 30 mg Montelukast Sodium (Montelukast Sodium 10 Mg Tablet) 10 mg PO HS [facility] Stop: 09/11/23 20:59 Last Admin: 08/16/23 20:26 Dose: 10 mg Oxybutynin Chloride (Oxybutynin Chloride Xl 5 Mg Tabcr) 10 mg PO QAM [facility]; Protocol Stop: 09/12/23 08:59 Last Admin: 08/17/23 07:43 Dose: 10 mg Tramadol HCl (Tramadol Hcl 50 Mg Tablet) 50 mg PO Q4H PRN PRN Reason: Pain Stop: 09/12/23 15:03 Last Admin: 08/17/23 07:39 Dose: 50 mg Umeclidinium Thurmond (Umeclidinium Thurmond 62.5mcg/Blister 7 Puffs/Inhaler) 1 puffs INH DAILY MARY Stop: 09/12/23 08:59 Last Admin: 08/17/23 07:42 Dose: 1 puffs
--- NOTE | 2023-08-17 10:49 | CT Scan Report ---
CT head/brain wo con CLINICAL HISTORY: r/o cva, facial tingling, visual disturbance Technique: Contiguous axial CT images of the head were acquired from the base of the skull to the sayda jamil without intravenous contrast administration. Images were viewed in brain, subdural and bone windo ws. Automated dose lowering techniques and/or adjustment according to patient size were utilized for this exam. Comparison: Comparison is made to CT head 08/12/2023 Findings: The ventricles, basal cisterns, and cerebral sulci are normal. There is no acute intracranial hemorrh age or evidence of acute territorial infarction. Neither mass effect, shift of the midline structures , nor abnormal extra-axial fluid collections are shown. Focal encephalomalacia is again seen in the left frontoparietal and right frontal white matter. Imaged portions of the paranasal sinuses and mastoid air cells are clear. The orbits appear normal. There are no acute fractures of the calvaria or scalp swelling. Impression: No acute intracranial hemorrhage, no evidence of acute territorial infarction or other acute intracra nial disease process. ACT 112: Negative or not required by law. Electronically signed by: Joesph Hoyt M.D. 08/17/2023 10:47 AM
--- NOTE | 2023-08-17 11:26 | CT Scan Report ---
CT angio head w con, CT angio neck with con CLINICAL HISTORY: 63 years-old Female with vision changes/ deficits. Acute stroke like symptoms COMPARISON STUDY: Head CT of same day, 08/12/2023, 08/20/2022 TECHNIQUE: Following the IV administration of 119 cc of Optiray, CT angiogram of the head and neck wa s performed from the aortic arch to the skull apex. Images are reviewed in the axial, sagittal, and c oronal planes. 3-D MIPS images are created and assessed. IV contrast was administered without complic ation. All measurements were obtained according to NASCET criteria. A dose lowering technique was uti lized adhering to the principles of ALARA. FINDINGS: CT ANGIOGRAM OF THE HEAD AND NECK: Three-vessel morphology of the thoracic arch. There is patency of the innominate and image subclavian arteries. The common carotid arteries are widely patent. Atherosclerotic plaque of the carotid bulbs without significant stenosis. The internal carotid arteries are patent bilaterally. The bilateral an terior and middle cerebral arteries are also patent. The vertebrobasilar system and right posterior c erebral arteries are widely patent. There is age indeterminate occlusion involving the P1 segment of the left posterior cerebral artery with 331 series 9 there is no aneurysm, high-grade stenosis, or pr oximal branch occlusion identified. Dural sinuses appear patent. Chronic left MCA infarct. Involutional changes with probable chronic microvascular ischemic disease. Pulmonary apices are clear. Unremarkable soft tissues. Subcentimeter hypodense right-sided thyroid no dule. No acute fracture. Degenerative changes of the cervical spine. Prior bilateral intraperitoneal IMPRESSION: 1. 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 2. Otherwise unremarkable CTA of the head and neck. 3. Chronic left MCA infarct. ACT 112: Negative or not required by law. The above report was generated using voice recognition software. It may contain grammatical, syntax o r spelling errors. Electronically signed by: Alvarez Peters M.D. 08/17/2023 11:24 AM
[2023-08-17] MEDS ORDERED: MAGNESIUM SULFATE / D5W 1 GM/100 ML BAG IV ONE (11:47)
[2023-08-17] MEDS ORDERED: PROCHLORPERAZINE 5 MG in SYRINGE 4 ML IV ONE (11:47)
[2023-08-17] MEDS ORDERED: diphenhydrAMINE 50 MG/ML VIAL IV STA (11:47)
[2023-08-17] MEDS: SODIUM CHLORIDE 0.9% 500 ML IV SCH ×2 (12:47→19:19)
[2023-08-17] MEDS ORDERED: LORazepam 0.5 MG TAB PO STA (16:36)
--- NOTE | 2023-08-17 17:59 | Consultation ---
Date of Consultation August 17, 2023 Assessment & Plan (1) Left homonymous hemianopsia: Patient has a left homonymous hemianopia most likely due to cerebral infarction. Areas that could be affected include the right optic track as it goes towards the lateral geniculate body of the thalamus as well as to the radiating fibers leaving the lateral geniculate body. There are other areas on the right side of the brain that could be affected to cause this as well. Per nursing she does have an MRI of her head scheduled. Plan MRI of the head and she can follow-up as an outpatient with her regular eye doctor or with us. History of Present Illness Requesting Physician: Dr Singh Reason for Consultation: Loss of left-sided vision. Attending Physician: Mohit Singh MD History of Present Illness Patient is a 63-year-old white female admitted for GI bleeding and anemia he reported that she woke up this morning with the inability to see the left side of her vision. Past ocular history includes cataract surgery of both eyes. Allergies Allergy/AdvReac Type Severity Reaction Status Date / Time aspirin Allergy Unknown TAKES Verified 08/13/23 10:10 COUMADIN salicylates AdvReac Unknown ?DUE TO Verified 08/13/23 10:10 COUMADIN? Home Medications Medication Instructions Recorded Confirmed Type albuterol sulfate 5 mg/mL(0.5 %) 2.5 mg inhalation DIRECTED PRN 08/20/22 08/12/23 History solution for nebulization Shortness Of Breath Or Wheezing albuterol sulfate 90 mcg/actuation 2 puff inhalation QID PRN sob 08/20/22 08/12/23 History aerosol inhaler baclofen 10 mg tablet 10 mg PO TID PRN Muscle Pain 08/20/22 08/12/23 History buspirone 10 mg tablet 20 mg PO AMHS 08/20/22 08/12/23 History cholecalciferol (vitamin D3) 25 25 mcg PO QAM 08/20/22 08/12/23 History mcg (1,000 unit) capsule (Vitamin D3) isosorbide mononitrate 30 mg 30 mg PO QAM 08/20/22 08/12/23 History tablet,extended release 24 hr lorazepam 0.5 mg tablet 0.5 mg PO Q8 PRN Anxiety 08/20/22 08/12/23 History tramadol 100 mg tablet 100 mg PO Q8 PRN .MOD-SEVERE PAIN 08/20/22 08/12/23 History warfarin 5 mg tablet 2.5 mg PO MOWEFR@1600 08/20/22 08/12/23 History ferrous sulfate 325 mg (65 mg 325 mg PO QAM 01/12/23 08/12/23 History iron) tablet acetaminophen 300 mg-codeine 30 mg 1 tab PO Q6 PRN Moderate Pain 07/15/23 08/12/23 History tablet (Scale Score 5-6) fluticasone propionate 115 2 puff inhalation AMHS 07/15/23 08/12/23 History mcg-salmeterol 21 mcg/actuation HFA inhaler (Advair HFA) metoprolol succinate 25 mg 25 mg PO QAM 07/15/23 08/12/23 History tablet,extended release 24 hr omeprazole 20 mg capsule,delayed 20 mg PO AMHS 07/15/23 08/12/23 History release potassium chloride 10 mEq 10 meq PO AMHS 07/15/23 08/12/23 History capsule,extended release solifenacin 10 mg tablet 10 mg PO QAM 07/15/23 08/12/23 History warfarin 5 mg tablet 5 mg PO SUTUTHSA 07/15/23 08/12/23 History furosemide 20 mg tablet (Lasix) 40 mg PO BID #30 tabs 07/23/23 08/12/23 Rx miconazole nitrate 2 % topical 1 applic EXT BID #28 grams 07/23/23 08/12/23 Rx cream montelukast 10 mg tablet 10 mg PO HS #30 tabs 07/23/23 08/12/23 Rx umeclidinium 62.5 mcg/actuation 1 inh inhalation DAILY #30 ea 07/23/23 08/12/23 Rx blister powder for inhalation (Incruse Ellipta) Patient History Medical History Anemia Anticoagulated on Coumadin Anxiety and depression Chronic pain on daily narcotics (tramadol PRN) Chronic respiratory failure with hypoxia Congestive heart failure follows with [facility] cardiology (Patricia banks) COPD (chronic obstructive pulmonary disease) Degenerative disc disease Dementia "very early stages" Alert and oriented x3. granddaughter is the caregiver of patient. Diarrhea started about 1 year ago -- will come and go. Encounter for pre-operative examination History of COVID-19 Spring 2020. treated at [facility] inpatient. symptoms included: sob, cough, desaturation 84-87%, congestion, headache, fatigue. no ventilator at the time. no current problems. History of stroke "embolic stroke, underlying PFO" total of 9 strokes -> last stroke ~6+years ago. damaged urinary nerve and mild left sided weakness. Hypertension Morbid obesity On home oxygen therapy continuous 3lpm via n/c. (will increase to 4lpm via n/c if needed) Osteoarthritis Paroxysmal A-fib feels her heart race at times. Peripheral neuropathy Post traumatic stress disorder Sleep apnea mild RUFINA (dx in ) no machine currently -- pt to have another sleep study february 2023. Submucosal lesion of stomach Noted on EGD 11/06/20 Urinary incontinence Surgical History H/O colonoscopy H/O esophagogastroduodenoscopy History of cardiac cath [facility] - "long time ago" -- pt unsure of details. History of cataract surgery bilateral Hx of lumpectomy left breast (benign) Status post cholecystectomy Status post hernia repair Right inguinal Status post hysterectomy MERT with BSO Family History Grandmother (Maternal) FHx: bladder cancer Father FHx: stroke Other Heart disease No family history of adverse response to anesthesia Social History Smoking Status: Former smoker Tobacco Type: Cigarettes Second Hand Exposure: No; Do You Dip or Chew Tobacco: No; Hx Alcohol Use: No Hx Substance Use: No Preferred Language: Ethiopian Communication Ability: Effective Home Visitor Required: No Beliefs That Will Affect Care: None marital status: / Current Living Situation: Alone Current Living Situation Comment: Granddaughter is the caregiver. Comes M-F 8am-4pm. Other Information That Helps Us Care for You: No Feels Safe at Home: Yes Safety Concerns: Feels Safe At This Time Assistive Devices: Denture - Upper, Glasses, Hospital Bed, Oxygen - Continuous, Scooter/Electric Scooter, Walker and Wheelchair Physical Exam Eyes: On ocular examination her visual acuity at near with a near card was 20/60 in each eye. Her extraocular movements were intact and full in both eyes. Her eyes were soft to palpation. Her pupils were equal and reactive to light and accommodation. On confrontational visual field she had a complete loss of vision in the left hemifield of both the right and the left eye. On slit-lamp examination her corneas were clear with deep and quiet anterior chambers. She had clear posterior chamber lenses with trace posterior capsular opacity of the left lens. On dilated eye examination she had healthy pink optic disks with 0.4 cups. She had myelinated nerve fiber coming off the superior disc of the left eye. Her maculas were healthy. Results & Data Vital Signs (Past 12 Hours) Vital Signs Temp Pulse Pulse Resp BP BP Pulse Ox 08/17/23 15:36 88 08/17/23 15:17 85 92 08/17/23 15:00 91 08/17/23 14:59 36.9 C 86 18 115/62 93 08/17/23 09:12 08/17/23 07:22 85 20 94 08/17/23 07:05 36.5 C 88 15 105/70 91 O2 Del Method O2 Flow Rate 08/17/23 15:36 08/17/23 15:17 Nasal Cannula 5 08/17/23 15:00 08/17/23 14:59 Nasal Cannula 5 08/17/23 09:12 Nasal Cannula 4 08/17/23 07:22 Nasal Cannula 5 08/17/23 07:05 Nasal Cannula 5 Diagnostic Findings Homonymous left hemianopia on confrontational visual mena
--- NOTE | 2023-08-17 19:07 | Orthopedic Consultation ---
Date of Consultation August 17, 2023 Assessment & Plan (1) Swelling of left hand: IMPRESSION: Left hand swelling secondarily to IV infiltration, not compartment syndrome PLAN: Will continue to monitor, neurovascular checks q1h Ice Light compression Elevate above the heart Encourage finger motion May have pain medicine Present on Admission?: No History of Present Illness Reason for Consultation: Left hand Swelling/pain, concern possible compartment syndrome Requesting Physician: Nusrat ePlayo MD Attending Physician: Mohit Singh MD History of Present Illness 63 yo female initially admitted to ICU for hypovolumic shock and dark tarry sto ols with increased pain and swelling left hand and forearm after IV infiltrated today following IV contrast study. I was asked to assess the patient. Allergies Allergy/AdvReac Type Severity Reaction Status Date / Time aspirin Allergy Unknown TAKES Verified 08/13/23 10:10 COUMADIN salicylates AdvReac Unknown ?DUE TO Verified 08/13/23 10:10 COUMADIN? Home Medications Medication Instructions Recorded Confirmed Type albuterol sulfate 5 mg/mL(0.5 %) 2.5 mg inhalation DIRECTED PRN 08/20/22 08/12/23 History solution for nebulization Shortness Of Breath Or Wheezing albuterol sulfate 90 mcg/actuation 2 puff inhalation QID PRN sob 08/20/22 History aerosol inhaler baclofen 10 mg tablet 10 mg PO TID PRN Muscle Pain 08/20/22 08/12/23 History buspirone 10 mg tablet 20 mg PO AMHS 08/20/22 08/12/23 History cholecalciferol (vitamin D3) 25 25 mcg PO QAM 08/20/22 08/12/23 History mcg (1,000 unit) capsule (Vitamin D3) isosorbide mononitrate 30 mg 30 mg PO QAM 08/20/22 08/12/23 History tablet,extended release 24 hr lorazepam 0.5 mg tablet 0.5 mg PO Q8 PRN Anxiety 08/20/22 08/12/23 History tramadol 100 mg tablet 100 mg PO Q8 PRN .MOD-SEVERE PAIN 08/20/22 08/12/23 History warfarin 5 mg tablet 2.5 mg PO MOWEFR@1600 08/20/22 08/12/23 History ferrous sulfate 325 mg (65 mg 325 mg PO QAM 01/12/23 08/12/23 History iron) tablet acetaminophen 300 mg-codeine 30 mg 1 tab PO Q6 PRN Moderate Pain 07/15/23 08/12/23 History tablet (Scale Score 5-6) fluticasone propionate 115 2 puff inhalation AMHS 07/15/23 08/12/23 History mcg-salmeterol 21 mcg/actuation HFA inhaler (Advair HFA) metoprolol succinate 25 mg 25 mg PO QAM 07/15/23 08/12/23 History tablet,extended release 24 hr omeprazole 20 mg capsule,delayed 20 mg PO AMHS 07/15/23 08/12/23 History release potassium chloride 10 mEq 10 meq PO AMHS 07/15/23 08/12/23 History capsule,extended release solifenacin 10 mg tablet 10 mg PO QAM 07/15/23 08/12/23 History warfarin 5 mg tablet 5 mg PO SUTUTHSA 07/15/23 08/12/23 History furosemide 20 mg tablet (Lasix) 40 mg PO BID #30 tabs 07/23/23 08/12/23 Rx miconazole nitrate 2 % topical 1 applic EXT BID #28 grams 07/23/23 08/12/23 Rx cream montelukast 10 mg tablet 10 mg PO HS #30 tabs 07/23/23 08/12/23 Rx umeclidinium 62.5 mcg/actuation 1 inh inhalation DAILY #30 ea 07/23/23 08/12/23 Rx blister powder for inhalation (Incruse Ellipta) Patient History Medical History (Updated 08/17/23 @ 21:07 by Jhonny Pelayo MD) Anemia Anticoagulated on Coumadin Anxiety and depression Chronic pain on daily narcotics (tramadol PRN) Chronic respiratory failure with hypoxia Congestive heart failure follows with [facility] cardiology ([facility]) COPD (chronic obstructive pulmonary disease) Degenerative disc disease Dementia "very early stages" Alert and oriented x3. granddaughter is the caregiver of patient. Diarrhea started about 1 year ago -- will come and go. Encounter for pre-operative examination History of COVID-19 Spring 2020. treated at [facility] inpatient. symptoms included: sob, cough, desaturation 84-87%, congestion, headache, fatigue. no ventilator at the time. no current problems. History of stroke "embolic stroke, underlying PFO" total of 9 strokes -> last stroke ~6+years ago. damaged urinary nerve and mild left sided weakness. Hypertension Morbid obesity On home oxygen therapy continuous 3lpm via n/c. (will increase to 4lpm via n/c if needed) Osteoarthritis Paroxysmal A-fib feels her heart race at times. Peripheral neuropathy Post traumatic stress disorder Sleep apnea mild RUFINA (dx in ) no machine currently -- pt to have another sleep study february 2023. Submucosal lesion of stomach Noted on EGD 11/06/20 Swelling of left hand Urinary incontinence Surgical History H/O colonoscopy H/O esophagogastroduodenoscopy History of cardiac cath [facility] - "long time ago" -- pt unsure of details. History of cataract surgery bilateral Hx of lumpectomy left breast (benign) Status post cholecystectomy Status post hernia repair Right inguinal Status post hysterectomy MERT with BSO Family History Grandmother (Maternal) FHx: bladder cancer Father FHx: stroke Other Heart disease No family history of adverse response to anesthesia Social History Smoking Status: Former smoker Tobacco Type: Cigarettes Second Hand Exposure: No; Do You Dip or Chew Tobacco: No; Hx Alcohol Use: No Hx Substance Use: No Preferred Language: Bengali Communication Ability: Effective [employer] Service Attendant Required: No Beliefs That Will Affect Care: None marital status: / Current Living Situation: Alone Current Living Situation Comment: Granddaughter is the caregiver. Comes M-F 8am-4pm. Other Information That Helps Us Care for You: No Feels Safe at Home: Yes Safety Concerns: Feels Safe At This Time Assistive Devices: Denture - Upper, Glasses, Hospital Bed, Oxygen - Continuous, Scooter/Electric Scooter, Walker and Wheelchair Physical Exam Physical Exam: LUE: BCR < 2 sec. Sensation to light touch intact distally. Motor to Median, radial, ulnar, AIN, PIN intact. Actively flexing and extending digits with mild discomfort. No discomfort with passive ROM digits and wrist. ++ dorsal swelling and bruising, soft + Swelling digits, soft. Palm is soft. Forearm soft. Results & Data Vital Signs (Past 12 Hours) Vital Signs Temp Pulse Pulse Resp BP Pulse Ox O2 Del Method 08/17/23 19:01 36.8 C 88 20 145/70 H 92 Nasal Cannula 08/17/23 15:36 88 08/17/23 15:17 85 92 Nasal Cannula 08/17/23 15:00 91 08/17/23 14:59 36.9 C 86 18 115/62 93 Nasal Cannula 08/17/23 09:12 Nasal Cannula 08/17/23 07:22 85 20 94 Nasal Cannula O2 Flow Rate 08/17/23 19:01 5 08/17/23 15:36 08/17/23 15:17 5 08/17/23 15:00 08/17/23 14:59 5 08/17/23 09:12 4 08/17/23 07:22 5 Laboratory Results Laboratory Results WBC 8.83 K/ul (4.8-10.8) 08/17/23 07:54 RBC 3.12 M/uL (4.20-5.40) L 08/17/23 07:54 Hgb 8.5 g/dl (12.0-16.0) L 08/17/23 07:54 POC Hgb TNP 08/12/23 16:44 Hct 29.1 % (37.0-47.0) L 08/17/23 07:54 POC Hct < 15 % (37-47) L* 08/12/23 16:44 MCV 93.3 fL (80.0-100.0) 08/17/23 07:54 MCH 27.2 pg (25.0-34.0) 08/17/23 07:54 MCHC 29.2 g/dL (32.0-36.0) L 08/17/23 07:54 RDW Std Deviation 58.4 fL (36.4-46.3) H 08/17/23 07:54 RDW Coeff of Ursula 17.3 % (11.5-14.5) H 08/17/23 07:54 Plt Count 516 K/uL (130-400) H 08/17/23 07:54 MPV 9.1 fL (9.4-12.4) L 08/17/23 07:54 Immature Gran % (Auto) 1.2 % 08/15/23 06:33 Neut % (Auto) 63.4 % 08/15/23 06:33 Lymph % (Auto) 18.4 % 08/15/23 06:33 Todd % (Auto) 13.1 % 08/15/23 06:33 Eos % (Auto) 3.7 % 08/15/23 06:33 Baso % (Auto) 0.2 % 08/15/23 06:33 Neut # (Auto) 4.10 K/uL (1.40-6.50) 08/15/23 06:33 Lymph # (Auto) 1.19 K/uL (1.20-3.40) L 08/15/23 06:33 Todd # (Auto) 0.85 K/uL (0.11-0.59) H 08/15/23 06:33 Eos # (Auto) 0.24 K/uL (0.00-0.50) 08/15/23 06:33 Baso # (Auto) 0.01 K/uL (0.00-0.20) 08/15/23 06:33 Immature Gran # (Auto) 0.08 K/uL (0.01-0.20) 08/15/23 06:33 Absolute Nucleated RBC 0.02 K/uL (0.00-0.12) 08/17/23 07:54 Nucleated RBC % (auto) 0.2 % 08/17/23 07:54 Neutrophils % (Manual) 75 % 08/14/23 14:29 Lymphocytes % (Manual) 11 % 08/14/23 14:29 Monocytes % (Manual) 11 % 08/14/23 14:29 Eosinophils % (Manual) 3 % 08/14/23 14:29 Neutrophils # (Manual) 5.27 K/uL (1.40-6.50) 08/14/23 14:29 Total Absolute Neuts 5.27 K/uL (1.4-6.5) 08/14/23 14:29 Lymphocytes # (Manual) 0.77 K/uL (1.2-3.4) L 08/14/23 14:29 Total Abs Lymphocytes 0.77 K/uL (1.2-3.4) L 08/14/23 14:29 Monocytes # (Manual) 0.77 K/uL (0.11-0.59) H 08/14/23 14:29 Eosinophils # (Manual) 0.21 K/uL (0-0.50) 08/14/23 14:29 Polychromasia 1+ 08/14/23 14:29 Hypochromasia Present 08/12/23 16:38 Anisocytosis Present 08/14/23 03:12 Target Cells 1+ 08/12/23 16:38 Stomatocytes 1+ 08/14/23 09:13 PT 10.2 Seconds (9.0-12.0) 08/16/23 05:16 INR 0.9 (0.9-1.1) 08/16/23 05:16 Fibrinogen 299 mg/dl (184-400) 08/12/23 19:55 POC Sodium 134 mmol/L (135-144) L 08/12/23 16:44 Sodium 139 mmol/L (136-145) 08/17/23 07:54 POC Potassium 3.0 mmol/L (3.3-5.0) L 08/12/23 16:44 Potassium 4.1 mmol/L (3.5-5.1) D 08/17/23 07:54 POC Chloride 89 mmol/L (101-112) L 08/12/23 16:44 Chloride 103 mmol/L (98-107) 08/17/23 07:54 Carbon Dioxide 32 mmol/L (21-32) 08/17/23 07:54 POC Total CO2 30 mmol/L (24-31) 08/12/23 16:44 Anion Gap 4 (3-11) 08/17/23 07:54 POC Anion Gap 19.0 mmol/L (16-25) 08/12/23 16:44 POC BUN 21 mg/dl (7-18) H 08/12/23 16:44 BUN 9 mg/dl (6-23) 08/17/23 07:54 Creatinine 0.63 mg/dl (0.6-1.2) 08/17/23 07:54 POC Creatinine 1.1 mg/dl (0.6-1.3) 08/12/23 16:44 Est Cr Clr Drug Dosing 126.1 ml/min 08/17/23 07:54 Est GFR ( Amer) 110.6 ml/min 08/17/23 07:54 Est GFR (Non-Af Amer) 95.5 ml/min 08/17/23 07:54 BUN/Creatinine Ratio 14.3 (10-20) 08/17/23 07:54 Glucose 117 mg/dl (70-99(Fasting)) H 08/17/23 07:54 POC Glucose 134 mg/dl (70-99) H 08/17/23 11:15 POC Glucose (other) 221 mg/dl (70-99) H 08/12/23 16:44 Lactate 1.0 mmol/L (0.4-2.0) 08/12/23 22:42 Calcium 8.0 mg/dl (8.6-10.3) L 08/17/23 07:54 POC Ioniz Calcium Saman 1.06 mmol/l (1.12-1.32) L 08/12/23 16:44 Ionized Calcium 1.09 mmol/L (1.12-1.32) L 08/13/23 03:50 Phosphorus 3.2 mg/dl (2.5-4.9) 08/17/23 07:54 Magnesium 2.0 mg/dl (1.7-2.4) 08/17/23 07:54 Total Bilirubin 0.4 mg/dl (0.2-1.0) 08/15/23 06:33 AST 16 U/L (13-39) 08/15/23 06:33 ALT 17 U/L (7-52) 08/15/23 06:33 Alkaline Phosphatase 82 U/L (34-104) 08/15/23 06:33 Total Creatine Kinase 311 U/L (26-192) H 08/12/23 16:38 Troponin I High Sens 6.6 pg/ml (0-14) 08/12/23 16:38 Total Protein 5.6 gm/dl (6.0-8.3) L 08/15/23 06:33 Albumin 3.1 gm/dl (3.4-5.0) L 08/15/23 06:33 Globulin 2.5 gm/dl (2.5-4.0) 08/15/23 06:33 Albumin/Globulin Ratio 1.2 (0.9-2) 08/15/23 06:33 TSH 3.065 uIu/ml (0.300-4.500) 08/12/23 16:38 Urine Color Yellow 08/12/23 17:30 Urine Appearance Clear (Clear) 08/12/23 17:30 Urine pH 5.5 (4.5-7.5) 08/12/23 17:30 Ur Specific Newcomb 1.021 (1.000-1.030) 08/12/23 17:30 Urine Protein Negative (Negative) 08/12/23 17:30 Urine Glucose (UA) Negative (Negative) 08/12/23 17:30 Urine Ketones Negative (Negative) 08/12/23 17:30 Urine Blood Negative (Negative) 08/12/23 17:30 Urine Nitrite Positive (Negative) A 08/12/23 17:30 Urine Bilirubin Negative (Negative) 08/12/23 17:30 Urine Urobilinogen Negative (Negative) 08/12/23 17:30 Ur Leukocyte Esterase 1+ (Negative) H 08/12/23 17:30 Urine WBC (Auto) 10-30 /hpf (0-5) H 08/12/23 17:30 Urine RBC (Auto) 0-4 /hpf (0-4) 08/12/23 17:30 U Hyaline Cast (Auto) 1-5 /lpf (0-5) 08/12/23 17:30 U Epithel Cells (Auto) 10-20 /lpf (0-5) H 08/12/23 17:30 Urine Bacteria (Auto) 2+ (Negative) H 08/12/23 17:30 Nasal Screen MRSA (PCR) Negative (Negative) 08/13/23 07:03 POC Stool Occult Blood Positive (Negative) A 08/12/23 17:50 SARS-CoV-2, RNA, NAAT NEGATIVE (NEGATIVE) 08/12/23 17:30 Blood Type O Negative 08/12/23 16:49 Antibody Screen NEGATIVE 08/12/23 16:49 Crossmatch See Detail 08/12/23 16:[address] 08/12/23 16:49 CT chest diagnostic w con CLINICAL HISTORY: sob, hypoxia, CP, on coumadin TECHNIQUE: Multidetector row helical CT of the chest was performed with intravenous contrast. Coronal and sagittal reformations were obtained. Automated dose lowering techniques and/or adjustment according to patient size were utilized for this exam. Comparison: Comparison is made to CT chest 09/16/2015 FINDINGS: Lungs and pleura: Atelectasis versus scarring is seen in the dependent portions of the lungs. Heart and pericardium: Heart size is normal. No pericardial effusion. Vessels: Mild atherosclerotic changes in the aorta and coronary arteries. No evidence of pulmonary embolus within the limits of a nondedicated exam. Mediastinum and jaylen: Unremarkable. Chest wall and lower neck: Unremarkable. Abdomen: Unremarkable. Bones: Unremarkable. IMPRESSION: No acute abnormalities are seen to explain chest pain and hypoxia. Likely mild interstitial lung disease. ACT 112: Negative or not required by law. Electronically signed by: Joesph Hoyt M.D. 08/12/2023 5:58 PM Abdomen/Pelvis CT 08/16/23 12:52 CT SCAN OF THE ABDOMEN AND PELVIS WITHOUT IV CONTRAST CLINICAL HISTORY: Chaparro abdominal pain. Distention. COMPARISON STUDY: Abdominal CT dated 08/12/2023. TECHNIQUE: CT scan of the abdomen and pelvis is performed from the lung bases to the proximal femora. Images are reviewed in the axial, sagittal, and coronal planes. IV contrast was not administered for this examination. Note that the examination was performed in suboptimal fashion without oral and IV contrast. A dose lowering technique was utilized adhering to the principles of ALARA. CT DOSE: 1577.75 mGy.cm FINDINGS: Lung bases: The heart is normal in size and without pericardial effusion. The lung bases are clear noting mild dependent atelectasis. Liver: The unenhanced liver is normal in size, contour, and attenuation. There is no intrahepatic biliary ductal dilatation. Gallbladder: Surgically absent noting clips in the gallbladder fossa. Spleen: Normal in size and attenuation. Pancreas: The unenhanced pancreas is mildly atrophic and grossly unremarkable. Adrenal glands: A 1.5 cm left adrenal nodule meets criteria for a fat-containing adenoma. The right adrenal gland is normal in appearance. Kidneys: The unenhanced kidneys demonstrate mild cortical atrophy and are without hydronephrosis. Foci of cortical scarring are seen on the left. No renal calculi are identified. There is no evidence of contour deforming renal mass lesion. Abdominal vasculature: The abdominal aorta is normal in course and caliber noting mild atherosclerotic calcification. Bowel: There is no bowel obstruction. A metallic foreign body is present within the right colon on image #[id number]. The appendix is well-visualized and normal. Peritoneum: There is no intraperitoneal free air or abdominal ascites. Lymphadenopathy: None. Pelvic viscera: The bladder is normal as visualized. The uterus is surgically absent. No adnexal lesion is seen. Skeletal structures: The skeletal structures are osteopenic. There is mild to moderate lumbosacral spondylosis. Arthritic change is noted in the hips. No lytic or blastic lesions are seen. IMPRESSION: No acute infectious or inflammatory findings are identified in the abdomen or pelvis. ACT 112: Negative or not required by law. Electronically signed by: Donavon Littlejohn M.D. 08/16/2023 2:[address] 08/17/23 10:12 CT head/brain wo con CLINICAL HISTORY: r/o cva, facial tingling, visual disturbance Technique: Contiguous axial CT images of the head were acquired from the base of the skull to the vertex without intravenous contrast administration. Images were viewed in brain, subdural and bone windows. Automated dose lowering techniques and/or adjustment according to patient size were utilized for this exam. Comparison: Comparison is made to CT head 08/12/2023 Findings: The ventricles, basal cisterns, and cerebral sulci are normal. There is no acute intracranial hemorrhage or evidence of acute territorial infarction. Neither mass effect, shift of the midline structures, nor abnormal extra-axial fluid collections are shown. Focal encephalomalacia is again seen in the left frontoparietal and right frontal white matter. Imaged portions of the paranasal sinuses and mastoid air cells are clear. The orbits appear normal. There are no acute fractures of the calvaria or scalp swelling. Impression: No acute intracranial hemorrhage, no evidence of acute territorial infarction or other acute intracranial disease process. ACT 112: Negative or not required by law. Electronically signed by: Joesph Hoyt M.D. 08/17/2023 10:47 AM Head CTA 08/17/23 10:30 CT angio head w con, CT angio neck with con CLINICAL HISTORY: 63 years-old Female with vision changes/ deficits. Acute stroke like symptoms COMPARISON STUDY: Head CT of same day, 08/12/2023, 08/20/2022 TECHNIQUE: Following the IV administration of 119 cc of Optiray, CT angiogram of the head and neck was performed from the aortic arch to the skull apex. Images are reviewed in the axial, sagittal, and coronal planes. 3-D MIPS images are created and assessed. IV contrast was administered without complication. All measurements were obtained according to NASCET criteria. A dose lowering technique was utilized adhering to the principles of ALARA. FINDINGS: CT ANGIOGRAM OF THE HEAD AND NECK: Three-vessel morphology of the thoracic arch. There is patency of the innominate and image subclavian arteries. The common carotid arteries are widely patent. Atherosclerotic plaque of the carotid bulbs without significant stenosis. The internal carotid arteries are patent bilaterally. The bilateral anterior and middle cerebral arteries are also patent. The vertebrobasilar system and right posterior cerebral arteries are widely patent. There is age indeterminate occlusion involving the P1 segment of the left posterior cerebral artery with 331 series 9 there is no aneurysm, high-grade stenosis, or proximal branch occlusion identified. Dural sinuses appear patent. Chronic left MCA infarct. Involutional changes with probable chronic microvascular ischemic disease. Pulmonary apices are clear. Unremarkable soft tissues. Subcentimeter hypodense right-sided thyroid nodule. No acute fracture. Degenerative changes of the cervical spine. Prior bilateral intraperitoneal IMPRESSION: 1. 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 2. Otherwise unremarkable CTA of the head and neck. 3. Chronic left MCA infarct. ACT 112: Negative or not required by law. The above report was generated using voice recognition software. It may contain grammatical, syntax or spelling errors. Electronically signed by: Alvarez Peters M.D. 08/17/2023 11:24 AM Neck CTA 08/17/23 10:30 CT angio head w con, CT angio neck with con CLINICAL HISTORY: 63 years-old Female with vision changes/ deficits. Acute stroke like symptoms COMPARISON STUDY: Head CT of same day, 08/12/2023, 08/20/2022 TECHNIQUE: Following the IV administration of 119 cc of Optiray, CT angiogram of the head and neck was performed from the aortic arch to the skull apex. Images are reviewed in the axial, sagittal, and coronal planes. 3-D MIPS images are created and assessed. IV contrast was administered without complication. All measurements were obtained according to NASCET criteria. A dose lowering technique was utilized adhering to the principles of ALARA. FINDINGS: CT ANGIOGRAM OF THE HEAD AND NECK: Three-vessel morphology of the thoracic arch. There is patency of the innominate and image subclavian arteries. The common carotid arteries are widely patent. Atherosclerotic plaque of the carotid bulbs without significant stenosis. The internal carotid arteries are patent bilaterally. The bilateral anterior and middle cerebral arteries are also patent. The vertebrobasilar system and right posterior cerebral arteries are widely patent. There is age indeterminate occlusion involving the P1 segment of the left posterior cerebral artery with 331 series 9 there is no aneurysm, high-grade stenosis, or proximal branch occlusion identified. Dural sinuses appear patent. Chronic left MCA infarct. Involutional changes with probable chronic microvascular ischemic disease. Pulmonary apices are clear. Unremarkable soft tissues. Subcentimeter hypodense right-sided thyroid nodule. No acute fracture. Degenerative changes of the cervical spine. Prior bilateral intraperitoneal
[2023-08-17] MEDS ORDERED: LORazepam 2 MG/1 ML VIAL IV ONE (20:16)
[2023-08-17] MEDS: cefTRIAXone SODIUM 2,000 MG in DEXTROSE 5% 50 ML IV SCH (20:27)
[2023-08-17] MEDS: MIRTAZAPINE TAB 15 MG TAB PO SCH (21:06)
[2023-08-17] MEDS: MONTELUKAST SODIUM 10 MG TABLET PO SCH (21:06)
[2023-08-18] MEDS: traMADol HCL 50 MG TABLET PO PRN ×4 (03:59→18:44)
[2023-08-18 06:25] LABS: Hematocrit (blood only) 28.2 % (37.0-47.0); Hemoglobin 8.4 g/dl (12.0-16.0); Mean Corpuscular Hemoglobin 27.1 pg (25.0-34.0); Mean Corpuscular Hgb Conc 29.8 g/dL (32.0-36.0); Mean Platelet Volume 9.6 fL (9.4-12.4); Platelet Count 548 K/uL (130-400); RDW Coefficient of Variation 17.2 % (11.5-14.5); RDW Standard Deviation 56.7 fL (36.4-46.3); White Blood Count 8.14 K/ul (4.8-10.8)
[2023-08-18 06:42] LABS: Magnesium 2.2 mg/dl (1.7-2.4); Potassium 4.1 mmol/L (3.5-5.1)
[2023-08-18 06:47] LABS: BUN Creatinine Ratio 12.1 (10-20); Creatinine Clr Calc Pharmacy 121.1 ml/min; Phosphorus 3.2 mg/dl (2.5-4.9)
[2023-08-18 06:50] LABS: INR 0.9 (0.9-1.1); Prothrombin Time 10.4 Seconds (9.0-12.0)
[2023-08-18] MEDS: ALBUTEROL 0.083% NEBU SOLN 3 ML VIAL NEB SCH ×4 (07:07→19:15)
[2023-08-18] MEDS: LORazepam 0.5 MG TAB PO PRN ×2 (07:45→15:39)
[2023-08-18] MEDS ORDERED: SODIUM CHLORIDE 0.9% 500 ML IV ONE ×2 (08:19→13:31)
--- NOTE | 2023-08-18 08:22 | Orthopedic Progress Note ---
Date of Service August 18, 2023 Assessment & Plan (1) Swelling of left hand: Plan: IMPRESSION: Left hand swelling secondarily to IV infiltration, not compartment syndrome, improving PLAN: Will continue to monitor, neurovascular checks switched to q2h for 8hr and then q4hr Ice Light compression Elevate above the heart Encourage finger motion May have pain medicine Continue care per primary service. Admission and Anticipated Discharge Date Admission Date: August 12, 2023 Subjective Unsure how she is doing, reported being tired. Physical Exam Physical Exam: LUE: BCR < 2 sec. Sensation to light touch intact distally. Motor to Median, r adial, ulnar, AIN, PIN intact. Actively flexing and extending digits, improved with mild discomfort. No discomfort with passive ROM digits and wrist. ++ decreased dorsal swelling and bruising, much softer + Swelling digits, soft. Palm is soft, no tenderness. Forearm soft, no tenderness. 2 small clear blisters over dorsal ulnar aspect hand Results & Data Vital Signs (Past 12 Hours) Vital Signs Temp Pulse Pulse Resp BP Pulse Ox O2 Del Method 08/18/23 07:55 36.8 C 92 H 20 87/61 L 94 Nasal Cannula 08/18/23 07:07 84 16 98 Nasal Cannula 08/18/23 03:45 36.8 C 89 20 118/74 92 Nasal Cannula 08/17/23 23:00 84 08/17/23 22:59 36.9 C 88 23 113/74 92 Nasal Cannula O2 Flow Rate 08/18/23 07:55 4 08/18/23 07:07 4 08/18/23 03:45 5 08/17/23 23:00 08/17/23 22:59 5
[2023-08-18] MEDS: busPIRone 5 MG TAB PO SCH ×2 (08:54→20:37)
[2023-08-18] MEDS: MICONAZOLE NITRATE 2% CR 30 GM TUBE EXT SCH ×2 (08:55→20:37)
[2023-08-18] MEDS: ADVANCED PROBIOTIC 1250 MG CAPSULE PO SCH (08:55)
[2023-08-18] MEDS: FLUTICASONE/VILANTEROL 100/25MCG 14 PUFFS/INHALER INH SCH (08:55)
[2023-08-18] MEDS: METOPROLOL SUCC 25MG EXT REL TAB PO SCH (08:56)
[2023-08-18] MEDS: UMECLIDINIUM BROMIDE 62.5MCG/BLISTER 7 PUFFS/INHALER INH SCH (08:56)
[2023-08-18] MEDS: OXYBUTYNIN CHLORIDE XL 5 MG TABCR PO SCH (08:56)
[2023-08-18] MEDS: ACETAMINOPHEN W/CODEINE #3 1 TAB PO PRN ×2 (09:00→20:41)
--- NOTE | 2023-08-18 09:26 | Neurology Consultation ---
Date of Consultation August 18, 2023 Assessment & Plan (1) Left homonymous hemianopsia: Plan 63 yo female with history of stroke, atrial septal aneurysm/PFO, COPD, ?atrial fibrillation, and heart failure that was admitted on 08/12 with hypovolemic shock and suspected acute GI bleed, now with one day history of left visual field deficit. Anticoagulation held given anemia and concern for GI bleed at admission. Unclear if there is a confirmed history of atrial fibrillation. Suspect visual field deficit is secondary to acute stroke and would recommend proceeding with stroke work-up. 1. MRI brain 2. TTE 3. LDL/A1C 4. Bilateral lower extremity ultrasound 4. Atorvastatin 40 mg daily 5. Neurochecks q4 6. ST/PT/OT 7. Telemetry Telehealth Consultation Telehealth Information Telehealth Information: I performed this visit using a real-time telehealth connection between my location and the patients location ([facility]). After connecting through interactive tele-video, patient was identified by name and date of and/or wristband check.Patient (or authorized healthcare career services representative) was informed that this was a telemedicine visit and it was being conducted confidentially over secure lines. My office door was closed and no one else was present in the room with me.Patient (or authorized healthcare career services representative) provided consent to proceed with the visit, expressed an understanding of privacy and security of the telemedicine visit, and gave permission to have a hospital career services representative in the room in order to assist with the visit and to conduct portions of the visit, as needed. I informed the patient (or authorized healthcare career services representative) that I reviewed their record and presented the opportunity for them to ask any questions regarding the visit today. The patient agreed to participate. History of Present Illness Reason for Consultation: visual field loss Requesting Physician: Dr. Mohit Loya Attending Physician: Paresh Mc MD History of Present Illness 63 yo female with history of atrial fibrillation?, stroke, atrial septal aneurysm/PFO, COPD and heart failure that presented on 08/12 with generalized weakness and melena and was admitted with hypovolemic shock and suspected acute GI bleed. Her coumadin had been held on 08/09 due to supratherapeutic INR, and INR was found to be 2.2 at admission. She received vitamin K and K centra and anticoagulation was held. She underwent EGD that did did not identify any source of bleeding. She states that on yesterday morning when she woke up, she noticed that she could not see on the left side of her vision. She denies attempting to cover or test her eyes independently at that time. She also felt that she was having mild weakness in her left arm and leg. In addition, she felt that she had facial numbness and that her tongue was "thick". She reports feeling fatigued but denies any additional symptoms. In chart review, a prior cardiology co nsultation in July 2023 notes that evidence of atrial fibrillation could not be confirmed, although this diagnosis began appearing in the pt's chart around the time anticoagulation was held. She does have a history of recurrent stroke and PFO and at sometime, anticoagulation for secondary stroke prevention was recommended. Allergies Allergy/AdvReac Type Severity Reaction Status Date / Time aspirin Allergy Unknown TAKES Verified 08/13/23 10:10 COUMADIN salicylates AdvReac Unknown ?DUE TO Verified 08/13/23 10:10 COUMADIN? Home Medications Medication Instructions Recorded Confirmed Type albuterol sulfate 5 mg/mL(0.5 %) 2.5 mg inhalation DIRECTED PRN 08/20/22 08/12/23 History solution for nebulization Shortness Of Breath Or Wheezing albuterol sulfate 90 mcg/actuation 2 puff inhalation QID PRN sob 08/20/22 08/12/23 History aerosol inhaler baclofen 10 mg tablet 10 mg PO TID PRN Muscle Pain 08/20/22 08/12/23 History buspirone 10 mg tablet 20 mg PO AMHS 08/20/22 08/12/23 History cholecalciferol (vitamin D3) 25 25 mcg PO QAM 08/20/22 08/12/23 History mcg (1,000 unit) capsule (Vitamin D3) isosorbide mononitrate 30 mg 30 mg PO QAM 08/20/22 08/12/23 History tablet,extended release 24 hr lorazepam 0.5 mg tablet 0.5 mg PO Q8 PRN Anxiety 08/20/22 08/12/23 History tramadol 100 mg tablet 100 mg PO Q8 PRN .MOD-SEVERE PAIN 08/20/22 08/12/23 History warfarin 5 mg tablet 2.5 mg PO MOWEFR@1600 08/20/22 08/12/23 History ferrous sulfate 325 mg (65 mg 325 mg PO QAM 01/12/23 08/12/23 History iron) tablet acetaminophen 300 mg-codeine 30 mg 1 tab PO Q6 PRN Moderate Pain 07/15/23 08/12/23 History tablet (Scale Score 5-6) fluticasone propionate 115 2 puff inhalation AMHS 07/15/23 08/12/23 History mcg-salmeterol 21 mcg/actuation HFA inhaler (Advair HFA) metoprolol succinate 25 mg 25 mg PO QAM 07/15/23 08/12/23 History tablet,extended release 24 hr omeprazole 20 mg capsule,delayed 20 mg PO AMHS 07/15/23 08/12/23 History release potassium chloride 10 mEq 10 meq PO AMHS 07/15/23 08/12/23 History capsule,extended release solifenacin 10 mg tablet 10 mg PO QAM 07/15/23 08/12/23 History warfarin 5 mg tablet 5 mg PO SUTUTHSA 07/15/23 08/12/23 History furosemide 20 mg tablet (Lasix) 40 mg PO BID #30 tabs 07/23/23 08/12/23 Rx miconazole nitrate 2 % topical 1 applic EXT BID #28 grams 07/23/23 08/12/23 Rx cream montelukast 10 mg tablet 10 mg PO HS #30 tabs 07/23/23 08/12/23 Rx umeclidinium 62.5 mcg/actuation 1 inh inhalation DAILY #30 ea 07/23/23 08/12/23 Rx blister powder for inhalation (Incruse Ellipta) Patient History Medical History (Updated 08/17/23 @ 21:07 by Jhonny Pelayo MD) Anemia Anticoagulated on Coumadin Anxiety and depression Chronic pain on daily narcotics (tramadol PRN) Chronic respiratory failure with hypoxia Congestive heart failure follows with [facility] cardiology ([facility]) COPD (chronic obstructive pulmonary disease) Degenerative disc disease Dementia "very early stages" Alert and oriented x3. granddaughter is the caregiver of patient. Diarrhea started about 1 year ago -- will come and go. Encounter for pre-operative examination History of COVID-19 Spring 2020. treated at [facility] inpatient. symptoms included: sob, cough, desaturation 84-87%, congestion, headache, fatigue. no ventilator at the time. no current problems. History of stroke "embolic stroke, underlying PFO" total of 9 strokes -> last stroke ~6+years ago. damaged urinary nerve and mild left sided weakness. Hypertension Morbid obesity On home oxygen therapy continuous 3lpm via n/c. (will increase to 4lpm via n/c if needed) Osteoarthritis Paroxysmal A-fib feels her heart race at times. Peripheral neuropathy Post traumatic stress disorder Sleep apnea mild RUFINA (dx in ) no machine currently -- pt to have another sleep study february 2023. Submucosal lesion of stomach Noted on EGD 11/06/20 Swelling of left hand Urinary incontinence Surgical History H/O colonoscopy H/O esophagogastroduodenoscopy History of cardiac cath [facility] - "long time ago" -- pt unsure of details. History of cataract surgery bilateral Hx of lumpectomy left breast (benign) Status post cholecystectomy Status post hernia repair Right inguinal Status post hysterectomy MERT with BSO Family History Grandmother (Maternal) FHx: bladder cancer Father FHx: stroke Other Heart disease No family history of adverse response to anesthesia Social History Smoking Status: Former smoker Tobacco Type: Cigarettes Second Hand Exposure: No; Do You Dip or Chew Tobacco: No; Hx Alcohol Use: No Hx Substance Use: No Preferred Language: Bengali Communication Ability: Effective Ocean Biologist Required: No Beliefs That Will Affect Care: None marital status: / Current Living Situation: Alone Current Living Situation Comment: Granddaughter is the caregiver. Comes M-F 8am-4pm. Other Information That Helps Us Care for You: No Feels Safe at Home: Yes Safety Concerns: Feels Safe At This Time Assistive Devices: Denture - Upper, Glasses, Hospital Bed, Oxygen - Continuous, Scooter/Electric Scooter, Walker and Wheelchair Review of Systems Negative except as listed in HPI Physical Exam AAO X 3. No aphasia or dysarthria Left homonymous hemianopia No facial asymmetry Tongue protrudes midline Motor: Moves bilateral upper extremities antigravity with no drift, Moves bilateral lower extremities antigravity with drift bilaterally Sensation: Intact to light touch throughout Cerebellar: FTN intact NIHS 6 Results & Data Vital Signs (Past 12 Hours) Vital Signs Temp Pulse Pulse Resp BP Pulse Ox O2 Del Method 08/18/23 07:55 36.8 C 92 H 20 87/61 L 94 Nasal Cannula 08/18/23 07:07 84 16 98 Nasal Cannula 08/18/23 03:45 36.8 C 89 20 118/74 92 Nasal Cannula 08/17/23 23:00 84 08/17/23 22:59 36.9 C 88 23 113/74 92 Nasal Cannula O2 Flow Rate 08/18/23 07:55 4 08/18/23 07:07 4 08/18/23 03:45 5 08/17/23 23:00 08/17/23 22:59 5 Laboratory Results WBC 8.14, HGB 8.4, HCT 28.2, Plts 548, INR 0.9, Na 137, Creatinine 0.66, Glucose 99, Magnesium 2.2 Diagnostic Findings CTH 08/12: No acute intracranial hemorrhage, no evidence of acute territorial infarction or other acute intracranial disease process. CTH 08/17:No acute intracranial hemorrhage, no evidence of acute territorial infarction or other acute intracranial disease process. CTA 08/17: 1. 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 2. Otherwise unremarkable CTA of the head and neck. 3. Chronic left MCA infarct.
[2023-08-18] MEDS: SODIUM CHLORIDE 0.9% 1,000 ML IV SCH ×2 (10:33→20:36)
--- NOTE | 2023-08-18 12:34 | CT Scan Report ---
CT head/brain wo con CLINICAL HISTORY: 63 years-old Female with ff up, r/o CVA. Acute stroke like symptoms TECHNIQUE: Multiple axial CT images of the head were obtained without contrast. A dose lowering tech nique was utilized adhering to the principles of ALARA. CT DOSE: 625.80 mGy.cm COMPARISON: 08/17/2023, 08/20/2022 FINDINGS: No acute intracranial hemorrhage, midline shift, intracranial mass, hydrocephalus, or abnormal extra- axial collection. There is a 4.5 cm focus of decreased attenuation with blurring of the fleming-white in terface within the right parieto-occipital distribution, progressed from yesterday's exam. Chronic bilateral MCA infarcts with encephalomalacia. White matter hypodensities are again noted sugg estive of chronic microvascular ischemic disease. The calvarium is intact. The paranasal sinuses, ma stoid air cells, and middle ear cavities are clear. IMPRESSION: 1. Moderate-sized acute right parieto-occipital infarct. 2. No acute intracranial hemorrhage or midline shift. 3. Chronic MCA infarcts with chronic white matter disease. ACT 112: Negative or not required by law. The above report was generated using voice recognition software. It may contain grammatical, syntax o r spelling errors. Electronically signed by: Alvarez Peters M.D. 08/18/2023 12:32 PM
--- NOTE | 2023-08-18 16:40 | Orthopedic Progress Note ---
Date of Service August 18, 2023 Assessment & Plan (1) Swelling of left hand: Plan PLAN: Will continue to monitor, neurovascular checks q4h Ice Light compression Elevate above the heart Encourage finger motion Pain medicine to help control patient's pain better Admission and Anticipated Discharge Date Admission Date: August 12, 2023 Subjective Patient seen and examined bedside. She says she is doing okay but she is having pain. She is getting tramadol but it is just taking the edge off. She denies any numbness or tingling. She does still have swelling. Physical Exam Physical Exam: Denies some blisters noted dorsally about her hand. There is some minor bruising. No signs of infection. She does have some swelling but her hand and forearm is soft and compressible. She has full range of motion of her fingers and is able to make a fist. She has full range of motion of her wrist. She has opposition of her thumb to all 5 digits. Results & Data Vital Signs (Past 12 Hours) Vital Signs Temp Pulse Resp BP Pulse Ox O2 Del Method O2 Flow Rate 08/18/23 15:00 36.6 C 90 18 104/66 98 Nasal Cannula 4 08/18/23 14:54 86 18 100 Nasal Cannula 4 08/18/23 11:32 36.8 C 83 13 81/57 L 100 Nasal Cannula 4 08/18/23 08:00 Nasal Cannula 4 08/18/23 10:55 85 16 97 Nasal Cannula 4 08/18/23 07:55 36.8 C 92 H 20 87/61 L 94 Nasal Cannula 4 08/18/23 07:07 84 16 98 Nasal Cannula 4
--- NOTE | 2023-08-18 17:04 | Hospitalist Progress Note ---
Date of Service August 18, 2023 Assessment & Plan (1) Hypovolemic shock: (2) Anemia: (3) Acute gastrointestinal bleeding: (4) Anticoagulant long-term use: Plan: per previous hospitalist notes with addendum: Initially admitted to ICU -> transferred to PCU next day when hemodynamically stable Patient presenting from home with reports of generalized weakness and dark tarry stools. In the ED, found to be hypotensive and Hgb 3.9, INR 2.2 Recent hx of elev. INR as outpt S/p vitamin K, Kcentra, desmopressin in the ED Transfused PRBC, FFP, per ED and ICU PPI drip GI consulted - pt underwent EGD on (08/13/23) - Findings: The examined esophagus was normal. The entire examined stomach was normal. There was a large submucosal nodule likely a lipoma in the gastric body. The duodenal bulb and second portion of the duodenum were normal. Impression: - Normal esophagus. - Normal stomach. 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 - Normal duodenal bulb and second portion of the duodenum. - No specimens collected. Recommendation: - Return patient to hospital hopper for ongoing care. - EUS electively as OP to confirm the lipoma. - Monitor H/H. - If any signs of rebleeding then please obtain a bleeding scan to localize the source. 08/16 - Pt reports abd. pain./ discomfort - increased - CT abdomen w/o con ordered FINDINGS: Lung bases: The heart is normal in size and without pericardial effusion. The lung bases are clear noting mild dependent atelectasis. Liver: The unenhanced liver is normal in size, contour, and attenuation. There is no intrahepatic biliary ductal dilatation. Gallbladder: Surgically absent noting clips in the gallbladder fossa. Spleen: Normal in size and attenuation. Pancreas: The unenhanced pancreas is mildly atrophic and grossly unremarkable. Adrenal glands: A 1.5 cm left adrenal nodule meets criteria for a fat-containing adenoma. The right adrenal gland is normal in appearance. Kidneys: The unenhanced kidneys demonstrate mild cortical atrophy and are without hydronephrosis. Foci of cortical scarring are seen on the left. No renal calculi are identified. There is no evidence of contour deforming renal mass lesion. Abdominal vasculature: The abdominal aorta is normal in course and caliber noting mild atherosclerotic calcification. Bowel: There is no bowel obstruction. A metallic foreign body is present within the right colon on image #[id number]. The appendix is well-visualized and normal. Peritoneum: There is no intraperitoneal free air or abdominal ascites. Lymphadenopathy: None. Pelvic viscera: The bladder is normal as visualized. The uterus is surgically absent. No adnexal lesion is seen. Skeletal structures: The skeletal structures are osteopenic. There is mild to moderate lumbosacral spondylosis. Arthritic change is noted in the hips. No lytic or blastic lesions are seen. IMPRESSION: No acute infectious or inflammatory findings are identified in the abdomen or pelvis. Discussed findings w/ radiologist. Also seen by GI on 08/16 re: recommendation for warfarin vs. further studies - per GI ok to restart warfarin - however pt hesitant and does not wish to restart the med at this time Reviewed cardiology consult note from previous admission in 07/2023 - the diagnosis of atrial fibrillation first appears in her chart in 2009 and is associated with her Coumadin therapy. The patient however is unaware of the term atrial fibrillation. I had been unable to find any definite EKG evidence of atrial fibrillation but the patient did have a documented history of recurrent stroke events and transesophageal echocardiogram performed in [place] in 2016 revealed an atrial septal aneurysm and PFO and ongoing anticoagulation for secondary prevention of stroke was recommended. It appears that she is been on Coumadin since proximally 2003. 08/17 Stroke like symptoms This AM notified by PT that pt is feeling dizzy, has facial numbness, and vision changes and reports to PT that she feels like having a stroke. Pt has hx of prior CVAs reportedly - I ordered stat CT head and came to evaluate pt immediately. She was awake, alert and answering appropriately, no facial droop, speech clear, moving all extremities and following commands. However she tells me that "she can't see half of me". And she is feeling very anxious - pt reports chronic anxiety. I had pt cover one eye at a time she continued to report that she can only see half of me (pt's right side). Talked to pt's RN and asked to call stroke alert for the pt. In addition ordered CT angio head and neck. Discussed w/[facility] stroke neuro at the bedside - would not recommend thrombolytics given pt admitted with profound anemia / GI bleed. Per his exam pt was only deficient in one eye. Recommends brain MRI, ophthalmology eval and migraine cocktail. MRI and ophtho consult ordered. CT head - negative [place] head/ neck - 1. 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 2. Otherwise unremarkable CTA of the head and neck. 3. Chronic left MCA infarct. 08/18 Acute CVA 1. Moderate-sized acute right parieto-occipital infarct. 2. No acute intracranial hemorrhage or midline shift. 3. Chronic MCA infarcts with chronic white matter disease. Patient still having left-sided hemianopsia Neurologist consulted, evaluated the patient today Repeat echo performed Inquiring with neurology service regarding resuming Coumadin Blood pressure on the lower side, IV fluid boluses given to maintain good cerebral perfusion Hemoglobin stable (5) Elevated lactic acid level: (6) UTI (urinary tract infection): Plan: Lactate 5.9 --> 2.4 Likely secondary to hypoperfusion from profound anemia and hypotension. Possible sepsis given positive UA, mild leukocytosis, WBC 11.9. Currently afebrile. Transfuse PRBC, trend lactate, IV ceftriaxone for UTI urine cultx - posit for e. coli - pansensitive, cont. ceftriaxone for now (7) COPD (chronic obstructive pulmonary disease): (8) Chronic respiratory failure with hypoxia: Plan: No signs of acute exacerbation Continue home inhalers Saturating well on chronic 4 liters of oxygen (9) Chronic diastolic CHF (congestive heart failure): Plan: Appears compensated (10) Paroxysmal A-fib: Plan: Rate controlled on metoprolol Anticoagulated on Coumadin -holding due to profound anemia, hypovolemic shock, GI bleeding (11) Depression, unspecified: (12) Anxiety disorder, unspecified: Plan: Chronic, stable Continue home meds DVT PROPHYLAXIS SCDs due to anemia, GI bleeding Admission and Anticipated Discharge Date Admission Date: August 12, 2023 Subjective ff up for GI bleed, in the setting of supratherapeutic INR, etc. Seen resting in bed, not in distress States vision is about the same as yesterday Denies any new neurologic deficits no chest pain, dyspnea, palpitations, dizziness Feels anxious, reassured No other symptoms Review of Systems Review of Systems: all noted and negative except for above Physical Exam Physical Exam: General- oriented x 3, not in distress, speaks in sentences with no effort or accessory muscle use Eyes- anicteric Neck- no JVD Lungs- clear breath sounds BL Heart- normal rate, regular rhythm; no murmurs Abdomen- normal bowel sounds, nondistended, soft, nontender Extremities- no pretibial edema, no calf tenderness (+) mild edema of left hand no erythema/warmth/tenderness Neuro- alert, oriented x 3; left homonymous hemianopsia No other new neurologic focal deficits Skin- warm & dry Results & Data Results & Data Vital Signs (Past 12 Hours) Vital Signs Temp Pulse Resp BP Pulse Ox O2 Del Method O2 Flow Rate 08/18/23 15:00 36.6 C 90 18 104/66 98 Nasal Cannula 4 08/18/23 14:54 86 18 100 Nasal Cannula 4 08/18/23 11:32 36.8 C 83 13 81/57 L 100 Nasal Cannula 4 08/18/23 08:00 Nasal Cannula 4 08/18/23 10:55 85 16 97 Nasal Cannula 4 08/18/23 07:55 36.8 C 92 H 20 87/61 L 94 Nasal Cannula 4 08/18/23 07:07 84 16 98 Nasal Cannula 4 all noted and reviewed including below
[2023-08-18] MEDS: cefTRIAXone SODIUM 2,000 MG in DEXTROSE 5% 50 ML IV SCH (18:49)
[2023-08-18] MEDS: MIRTAZAPINE TAB 15 MG TAB PO SCH (20:38)
[2023-08-18] MEDS: MONTELUKAST SODIUM 10 MG TABLET PO SCH (20:38)
--- NOTE | 2023-08-19 01:14 | Ultrasound Report ---
Exam(s): US VENOUS BILATERAL LOWER EXTREMITIES EXAM: US Duplex Bilateral Lower Extremities Veins CLINICAL HISTORY: Reason for exam: r/o dvt, acute CVA. TECHNIQUE: Real-time duplex ultrasound scan of the bilateral lower extremity veins integrating B-mode two-dimensional vascular structure, Doppler spectral analysis, color flow Doppler imaging and compression. COMPARISON: No relevant prior studies available. FINDINGS: Artifacts: Artifact: Technically difficult study secondary to patient body habitus and ability to tolerate the exam. Right deep veins: Unremarkable. The visualized deep veins of the right lower extremity are compressible with color flow. No visualized thrombus. Right superficial veins: Unremarkable. Left deep veins: Unremarkable. The visualized deep veins of the left lower extremity are compressible with color flow. No visualized thrombus. Left superficial veins: Unremarkable. Soft tissues: No acute findings. IMPRESSION: No visualized DVT. Electronically signed by: Alfredo Calabrese MD 08/19/23 01:13 AM
[2023-08-19] MEDS: traMADol HCL 50 MG TABLET PO PRN ×4 (02:22→21:08)
[2023-08-19] MEDS: LORazepam 0.5 MG TAB PO PRN ×2 (02:22→10:14)
[2023-08-19] MEDS: SODIUM CHLORIDE 0.9% 1,000 ML IV SCH ×3 (05:17→20:57)
[2023-08-19] MEDS: ALBUTEROL 0.083% NEBU SOLN 3 ML VIAL NEB SCH ×4 (07:51→19:32)
--- NOTE | 2023-08-19 07:58 | Orthopedic Progress Note ---
Date of Service August 19, 2023 Assessment & Plan (1) Swelling of left hand: Plan: PLAN: Will continue to monitor, neurovascular checks qshift Ice Light compression Elevate above the heart Encourage finger motion, activity as tolerated. When blisters open, cover with non-adherent dressing Pain medicine to help control patient's pain as needed Continue care per primary service. Please recall if any ortho issues. Admission and Anticipated Discharge Date Admission Date: August 12, 2023 Subjective Decreased pain left hand Physical Exam Physical Exam: LUE: BCR < 2 sec. Sensation to light touch intact distally. Motor to Median, radial, ulnar, AIN, PIN intact. Actively flexing and extending digits, able to make a full fist now. No discomfort with passive ROM digits and wrist. Minimal dorsal swelling and bruising, soft Minimal swelling digits, soft. Palm is soft, no tenderness. Forearm soft, no tenderness. 2 small clear blisters over dorsal ulnar aspect hand Results & Data Vital Signs (Past 12 Hours) Vital Signs Temp Pulse Pulse Resp BP Pulse Ox O2 Del Method 08/19/23 03:15 36.6 C 99 H 20 111/56 L 93 Nasal Cannula 08/18/23 23:00 91 H 08/18/23 22:47 36.8 C 90 20 117/52 L 90 Nasal Cannula 08/18/23 20:00 Nasal Cannula O2 Flow Rate 08/19/23 03:15 4 08/18/23 23:00 08/18/23 22:47 4 08/18/23 20:00 4 Laboratory Results Laboratory Results WBC 8.14 K/ul (4.8-10.8) 08/18/23 05:22 RBC 3.10 M/uL (4.20-5.40) L 08/18/23 05:22 Hgb 8.4 g/dl (12.0-16.0) L 08/18/23 05:22 POC Hgb TNP 08/12/23 16:44 Hct 28.2 % (37.0-47.0) L 08/18/23 05:22 POC Hct < 15 % (37-47) L* 08/12/23 16:44 MCV 91.0 fL (80.0-100.0) 08/18/23 05:22 MCH 27.1 pg (25.0-34.0) 08/18/23 05:22 MCHC 29.8 g/dL (32.0-36.0) L 08/18/23 05:22 RDW Std Deviation 56.7 fL (36.4-46.3) H 08/18/23 05:22 RDW Coeff of Ursula 17.2 % (11.5-14.5) H 08/18/23 05:22 Plt Count 548 K/uL (130-400) H 08/18/23 05:22 MPV 9.6 fL (9.4-12.4) 08/18/23 05:22 Immature Gran % (Auto) 1.2 % 08/15/23 06:33 Neut % (Auto) 63.4 % 08/15/23 06:33 Lymph % (Auto) 18.4 % 08/15/23 06:33 Story % (Auto) 13.1 % 08/15/23 06:33 Eos % (Auto) 3.7 % 08/15/23 06:33 Baso % (Auto) 0.2 % 08/15/23 06:33 Neut # (Auto) 4.10 K/uL (1.40-6.50) 08/15/23 06:33 Lymph # (Auto) 1.19 K/uL (1.20-3.40) L 08/15/23 06:33 Story # (Auto) 0.85 K/uL (0.11-0.59) H 08/15/23 06:33 Eos # (Auto) 0.24 K/uL (0.00-0.50) 08/15/23 06:33 Baso # (Auto) 0.01 K/uL (0.00-0.20) 08/15/23 06:33 Immature Gran # (Auto) 0.08 K/uL (0.01-0.20) 08/15/23 06:33 Absolute Nucleated RBC 0.02 K/uL (0.00-0.12) 08/17/23 07:54 Nucleated RBC % (auto) 0.2 % 08/17/23 07:54 Neutrophils % (Manual) 75 % 08/14/23 14:29 Lymphocytes % (Manual) 11 % 08/14/23 14:29 Monocytes % (Manual) 11 % 08/14/23 14:29 Eosinophils % (Manual) 3 % 08/14/23 14:29 Neutrophils # (Manual) 5.27 K/uL (1.40-6.50) 08/14/23 14:29 Total Absolute Neuts 5.27 K/uL (1.4-6.5) 08/14/23 14:29 Lymphocytes # (Manual) 0.77 K/uL (1.2-3.4) L 08/14/23 14:29 Total Abs Lymphocytes 0.77 K/uL (1.2-3.4) L 08/14/23 14:29 Monocytes # (Manual) 0.77 K/uL (0.11-0.59) H 08/14/23 14:29 Eosinophils # (Manual) 0.21 K/uL (0-0.50) 08/14/23 14:29 Polychromasia 1+ 08/14/23 14:29 Hypochromasia Present 08/12/23 16:38 Anisocytosis Present 08/14/23 03:12 Target Cells 1+ 08/12/23 16:38 Stomatocytes 1+ 08/14/23 09:13 PT 10.4 Seconds (9.0-12.0) 08/18/23 05:22 INR 0.9 (0.9-1.1) 08/18/23 05:22 Fibrinogen 299 mg/dl (184-400) 08/12/23 19:55 POC Sodium 134 mmol/L (135-144) L 08/12/23 16:44 Sodium 137 mmol/L (136-145) 08/18/23 05:22 POC Potassium 3.0 mmol/L (3.3-5.0) L 08/12/23 16:44 Potassium 4.1 mmol/L (3.5-5.1) 08/18/23 05:22 POC Chloride 89 mmol/L (101-112) L 08/12/23 16:44 Chloride 102 mmol/L (98-107) 08/18/23 05:22 Carbon Dioxide 29 mmol/L (21-32) 08/18/23 05:22 POC Total CO2 30 mmol/L (24-31) 08/12/23 16:44 Anion Gap 6 (3-11) 08/18/23 05:22 POC Anion Gap 19.0 mmol/L (16-25) 08/12/23 16:44 POC BUN 21 mg/dl (7-18) H 08/12/23 16:44 BUN 8 mg/dl (6-23) 08/18/23 05:22 Creatinine 0.66 mg/dl (0.6-1.2) 08/18/23 05:22 POC Creatinine 1.1 mg/dl (0.6-1.3) 08/12/23 16:44 Est Cr Clr Drug Dosing 121.1 ml/min 08/18/23 05:22 Est GFR ( Amer) 109.0 ml/min 08/18/23 05:22 Est GFR (Non-Af Amer) 94.0 ml/min 08/18/23 05:22 BUN/Creatinine Ratio 12.1 (10-20) 08/18/23 05:22 Glucose 99 mg/dl (70-99(Fasting)) 08/18/23 05:22 POC Glucose 134 mg/dl (70-99) H 08/17/23 11:15 POC Glucose (other) 221 mg/dl (70-99) H 08/12/23 16:44 Lactate 1.0 mmol/L (0.4-2.0) 08/12/23 22:42 Calcium 8.0 mg/dl (8.6-10.3) L 08/18/23 05:22 POC Ioniz Calcium Sam[place] 1.06 mmol/l (1.12-1.32) L 08/12/23 16:44 Ionized Calcium 1.09 mmol/L (1.12-1.32) L 08/13/23 03:50 Phosphorus 3.2 mg/dl (2.5-4.9) 08/18/23 05:22 Magnesium 2.2 mg/dl (1.7-2.4) 08/18/23 05:22 Total Bilirubin 0.4 mg/dl (0.2-1.0) 08/15/23 06:33 AST 16 U/L (13-39) 08/15/23 06:33 ALT 17 U/L (7-52) 08/15/23 06:33 Alkaline Phosphatase 82 U/L (34-104) 08/15/23 06:33 Total Creatine Kinase 311 U/L (26-192) H 08/12/23 16:38 Troponin I High Sens 6.6 pg/ml (0-14) 08/12/23 16:38 Total Protein 5.6 gm/dl (6.0-8.3) L 08/15/23 06:33 Albumin 3.1 gm/dl (3.4-5.0) L 08/15/23 06:33 Globulin 2.5 gm/dl (2.5-4.0) 08/15/23 06:33 Albumin/Globulin Ratio 1.2 (0.9-2) 08/15/23 06:33 TSH 3.065 uIu/ml (0.300-4.500) 08/12/23 16:38 Urine Color Yellow 08/12/23 17:30 Urine Appearance Clear (Clear) 08/12/23 17:30 Urine pH 5.5 (4.5-7.5) 08/12/23 17:30 Ur Specific [place] 1.021 (1.000-1.030) 08/12/23 17:30 Urine Protein Negative (Negative) 08/12/23 17:30 Urine Glucose (UA) Negative (Negative) 08/12/23 17:30 Urine Ketones Negative (Negative) 08/12/23 17:30 Urine Blood Negative (Negative) 08/12/23 17:30 Urine Nitrite Positive (Negative) A 08/12/23 17:30 Urine Bilirubin Negative (Negative) 08/12/23 17:30 Urine Urobilinogen Negative (Negative) 08/12/23 17:30 Ur Leukocyte Esterase 1+ (Negative) H 08/12/23 17:30 Urine WBC (Auto) 10-30 /hpf (0-5) H 08/12/23 17:30 Urine RBC (Auto) 0-4 /hpf (0-4) 08/12/23 17:30 U Hyaline Cast (Auto) 1-5 /lpf (0-5) 08/12/23 17:30 U Epithel Cells (Auto) 10-20 /lpf (0-5) H 08/12/23 17:30 Urine Bacteria (Auto) 2+ (Negative) H 08/12/23 17:30 Nasal Screen MRSA (PCR) Negative (Negative) 08/13/23 07:03 POC Stool Occult Blood Positive (Negative) A 08/12/23 17:50 SARS-CoV-2, RNA, NAAT NEGATIVE (NEGATIVE) 08/12/23 17:30 Blood Type O Negative 08/12/23 16:49 Antibody Screen NEGATIVE 08/12/23 16:49 Crossmatch See Detail 08/12/23 16:[address] 08/12/23 16:49 CT chest diagnostic w con CLINICAL HISTORY: sob, hypoxia, CP, on coumadin TECHNIQUE: Multidetector row helical CT of the chest was performed with intravenous contrast. Coronal and sagittal reformations were obtained. Automated dose lowering techniques and/or adjustment according to patient size were utilized for this exam. Comparison: Comparison is made to CT chest 09/16/2015 FINDINGS: Lungs and pleura: Atelectasis versus scarring is seen in the dependent portions of the lungs. Heart and pericardium: Heart size is normal. No pericardial effusion. Vessels: Mild atherosclerotic changes in the aorta and coronary arteries. No evidence of pulmonary embolus within the limits of a nondedicated exam. Mediastinum and jaylen: Unremarkable. Chest wall and lower neck: Unremarkable. Abdomen: Unremarkable. Bones: Unremarkable. IMPRESSION: No acute abnormalities are seen to explain chest pain and hypoxia. Likely mild interstitial lung disease. ACT 112: Negative or not required by law. Electronically signed by: Joesph Hoyt M.D. 08/12/2023 5:58 PM Abdomen/Pelvis CT 08/16/23 12:52 CT SCAN OF THE ABDOMEN AND PELVIS WITHOUT IV CONTRAST CLINICAL HISTORY: [place] abdominal pain. Distention. COMPARISON STUDY: Abdominal CT dated 08/12/2023. TECHNIQUE: CT scan of the abdomen and pelvis is performed from the lung bases to the proximal femora. Images are reviewed in the axial, sagittal, and coronal planes. IV contrast was not administered for this examination. Note that the examination was performed in suboptimal fashion without oral and IV contrast. A dose lowering technique was utilized adhering to the principles of ALARA. CT DOSE: 1577.75 mGy.cm FINDINGS: Lung bases: The heart is normal in size and without pericardial effusion. The lung bases are clear noting mild dependent atelectasis. Liver: The unenhanced liver is normal in size, contour, and attenuation. There is no intrahepatic biliary ductal dilatation. Gallbladder: Surgically absent noting clips in the gallbladder fossa. Spleen: Normal in size and attenuation. Pancreas: The unenhanced pancreas is mildly atrophic and grossly unremarkable. Adrenal glands: A 1.5 cm left adrenal nodule meets criteria for a fat-containing adenoma. The right adrenal gland is normal in appearance. Kidneys: The unenhanced kidneys demonstrate mild cortical atrophy and are wit hout hydronephrosis. Foci of cortical scarring are seen on the left. No renal calculi are identified. There is no evidence of contour deforming renal mass lesion. Abdominal vasculature: The abdominal aorta is normal in course and caliber noting mild atherosclerotic calcification. Bowel: There is no bowel obstruction. A metallic foreign body is present within the right colon on image #[id number]. The appendix is well-visualized and normal. Peritoneum: There is no intraperitoneal free air or abdominal ascites. Lymphadenopathy: None. Pelvic viscera: The bladder is normal as visualized. The uterus is surgically absent. No adnexal lesion is seen. Skeletal structures: The skeletal structures are osteopenic. There is mild to moderate lumbosacral spondylosis. Arthritic change is noted in the hips. No lytic or blastic lesions are seen. IMPRESSION: No acute infectious or inflammatory findings are identified in the abdomen or pelvis. ACT 112: Negative or not required by law. Electronically signed by: Donavon Littlejohn M.D. 08/16/2023 2:03 PM Head CTA 08/17/23 10:30 CT angio head w con, CT angio neck with con CLINICAL HISTORY: 63 years-old Female with vision changes/ deficits. Acute stroke like symptoms COMPARISON STUDY: Head CT of same day, 08/12/2023, 08/20/2022 TECHNIQUE: Following the IV administration of 119 cc of Optiray, CT angiogram of the head and neck was performed from the aortic arch to the skull apex. Images are reviewed in the axial, sagittal, and coronal planes. 3-D MIPS images are created and assessed. IV contrast was administered without complication. All measurements were obtained according to NASCET criteria. A dose lowering technique was utilized adhering to the principles of ALARA. FINDINGS: CT ANGIOGRAM OF THE HEAD AND NECK: Three-vessel morphology of the thoracic arch. There is patency of the innominate and image subclavian arteries. The common carotid arteries are widely patent. Atherosclerotic plaque of the carotid bulbs without significant stenosis. The internal carotid arteries are patent bilaterally. The bilateral anterior and middle cerebral arteries are also patent. The vertebrobasilar system and right posterior cerebral arteries are widely patent. There is age indeterminate occlusion involving the P1 segment of the left posterior cerebral artery with 331 series 9 there is no aneurysm, high-grade stenosis, or proximal branch occlusion identified. Dural sinuses appear patent. Chronic left MCA infarct. Involutional changes with probable chronic microvascular ischemic disease. Pulmonary apices are clear. Unremarkable soft tissues. Subcentimeter hypodense right-sided thyroid nodule. No acute fracture. Degenerative changes of the cervical spine. Prior bilateral intraperitoneal IMPRESSION: 1. 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 2. Otherwise unremarkable CTA of the head and neck. 3. Chronic left MCA infarct. ACT 112: Negative or not required by law. The above report was generated using voice recognition software. It may contain grammatical, syntax or spelling errors. Electronically signed by: Alvarez Peters M.D. 08/17/2023 11:24 AM Neck CTA 08/17/23 10:30 CT angio head w con, CT angio neck with con CLINICAL HISTORY: 63 years-old Female with vision changes/ deficits. Acute stroke like symptoms COMPARISON STUDY: Head CT of same day, 08/12/2023, 08/20/2022 TECHNIQUE: Following the IV administration of 119 cc of Optiray, CT angiogram of the head and neck was performed from the aortic arch to the skull apex. Images are reviewed in the axial, sagittal, and coronal planes. 3-D MIPS images are created and assessed. IV contrast was administered without complication. All measurements were obtained according to NASCET criteria. A dose lowering technique was utilized adhering to the principles of ALARA. FINDINGS: CT ANGIOGRAM OF THE HEAD AND NECK: Three-vessel morphology of the thoracic arch. There is patency of the innominate and image subclavian arteries. The common carotid arteries are widely patent. Atherosclerotic plaque of the carotid bulbs without significant stenosis. The internal carotid arteries are patent bilaterally. The bilateral anterior and middle cerebral arteries are also patent. The vertebrobasilar system and right posterior cerebral arteries are widely patent. There is age indeterminate occlusion involving the P1 segment of the left posterior cerebral artery with 331 series 9 there is no aneurysm, high-grade stenosis, or proximal branch o cclusion identified. Dural sinuses appear patent. Chronic left MCA infarct. Involutional changes with probable chronic microvascular ischemic disease. Pulmonary apices are clear. Unremarkable soft t issues. Subcentimeter hypodense right-sided thyroid nodule. No acute fracture. Degenerative changes of the cervical spine. Prior bilateral intraperitoneal IMPRESSION: 1. 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 2. Otherwise unremarkable CTA of the head and neck. 3. Chronic left MCA infarct. ACT 112: Negative or not required by law. The above report was generated using voice recognition software. It may contain grammatical, syntax or spelling errors. Electronically signed by: Alvarez Peters M.D. 08/17/2023 11:[address] 08/18/23 10:04 CT head/brain wo con CLINICAL HISTORY: 63 years-old Female with ff up, r/o CVA. Acute stroke like symptoms TECHNIQUE: Multiple axial CT images of the head were obtained without contrast. A dose lowering technique was utilized adhering to the principles of ALARA. CT DOSE: 625.80 mGy.cm COMPARISON: 08/17/2023, 08/20/2022 FINDINGS: No acute intracranial hemorrhage, midline shift, intracranial mass, hydrocephalus, or abnormal extra-axial collection. There is a 4.5 cm focus of decreased attenuation with blurring of the fleming-white interface within the right parieto-occipital distribution, progressed from yesterday's exam. Chronic bilateral MCA infarcts with encephalomalacia. White matter hypodensities are again noted suggestive of chronic microvascular ischemic disease. The calvarium is intact. The paranasal sinuses, mastoid air cells, and middle ear cavities are clear. IMPRESSION: 1. Moderate-sized acute right parieto-occipital infarct. 2. No acute intracranial hemorrhage or midline shift. 3. Chronic MCA infarcts with chronic white matter disease. ACT 112: Negative or not required by law. The above report was generated using voice recognition software. It may contain grammatical, syntax or spelling errors. Electronically signed by: Alvarez Peters M.D. 08/18/2023 12:32 PM Venous Doppler Study 08/18/23 14:50 Exam(s): US VENOUS BILATERAL LOWER EXTREMITIES EXAM: US Duplex Bilateral Lower Extremities Veins CLINICAL HISTORY: Reason for exam: r/o dvt, acute CVA. TECHNIQUE: Real-time duplex ultrasound scan of the bilateral lower extremity veins integrating B-mode two-dimensional vascular structure, Doppler spectral analysis, color flow Doppler imaging and compression. COMPARISON: No relevant prior studies available. FINDINGS: Artifacts: Artifact: Technically difficult study secondary to patient body habitus and ability to tolerate the exam. Right deep veins: Unremarkable. The visualized deep veins of the right lower extremity are compressible with color flow. No visualized thrombus. Right superficial veins: Unremarkable. Left deep veins: Unremarkable. The visualized deep veins of the left lower extremity are compressible with color flow. No visualized thrombus. Left superficial veins: Unremarkable. Soft tissues: No acute findings. IMPRESSION: No visualized DVT. Electronically signed by: Alfredo Calabrese MD 08/19/23 01:13 AM
[2023-08-19] MEDS: UMECLIDINIUM BROMIDE 62.5MCG/BLISTER 7 PUFFS/INHALER INH SCH (08:32)
[2023-08-19] MEDS: ADVANCED PROBIOTIC 1250 MG CAPSULE PO SCH (08:32)
[2023-08-19] MEDS: busPIRone 5 MG TAB PO SCH ×2 (08:32→20:49)
[2023-08-19] MEDS: FLUTICASONE/VILANTEROL 100/25MCG 14 PUFFS/INHALER INH SCH (08:32)
[2023-08-19] MEDS: MICONAZOLE NITRATE 2% CR 30 GM TUBE EXT SCH ×2 (08:33→20:48)
[2023-08-19] MEDS: OXYBUTYNIN CHLORIDE XL 5 MG TABCR PO SCH (08:33)
[2023-08-19] MEDS: METOPROLOL SUCC 25MG EXT REL TAB PO SCH (08:33)
[2023-08-19 08:54] LABS: Hematocrit (blood only) 28.8 % (37.0-47.0); Hemoglobin 8.3 g/dl (12.0-16.0); Mean Corpuscular Hemoglobin 26.9 pg (25.0-34.0); Mean Corpuscular Hgb Conc 28.8 g/dL (32.0-36.0); Mean Corpuscular Volume 93.5 fL (80.0-100.0); Mean Platelet Volume 8.7 fL (9.4-12.4); Platelet Count 579 K/uL (130-400); RDW Coefficient of Variation 17.2 % (11.5-14.5); RDW Standard Deviation 57.8 fL (36.4-46.3); Red Blood Count 3.08 M/uL (4.20-5.40); White Blood Count 7.39 K/ul (4.8-10.8)
[2023-08-19 09:04] LABS: Calcium 7.8 mg/dl (8.6-10.3); Creatinine Clr Calc Pharmacy 140.6 ml/min; Est GFR (African American) 114.3 ml/min; Est GFR (Non-African American) 98.7 ml/min
[2023-08-19 09:10] LABS: Basophils # (auto) 0.04 K/uL (0.00-0.20); Basophils % (auto) 0.5 %; Eosinophils # (auto) 0.24 K/uL (0.00-0.50); Eosinophils % (auto) 3.2 %; Hypochromasia Present; Immature Granulocytes # (auto) 0.06 K/uL (0.01-0.20); Immature Granulocytes % (auto) 0.8 %; Lymphocytes # (auto) 1.31 K/uL (1.20-3.40); Lymphocytes % (auto) 17.7 %; Monocytes # (auto) 0.84 K/uL (0.11-0.59); Monocytes % (auto) 11.4 %; Neutrophils % (auto) 66.4 %
[2023-08-19] MEDS ORDERED: LORazepam 0.5 MG TAB PO STA (14:18)
--- NOTE | 2023-08-19 15:04 | CT Scan Report ---
CT SCAN OF THE BRAIN WITHOUT IV CONTRAST CLINICAL HISTORY: Headache. COMPARISON STUDY: CT of the brain dated 08/18/2023 TECHNIQUE: Unenhanced axial CT scan of the brain is performed from the vertex to the skull base. A do se lowering technique was utilized adhering to the principles of ALARA. CT DOSE: 602.38 mGy.cm FINDINGS: Brain parenchyma: A subacute/evolving right parieto-occipital infarct is again noted. There is mild s urrounding edema. No midline shift is noted. No hemorrhage is identified. Additional chronic infarcts are again seen in the right frontal lobe and the left MCA territory. There is age-related involution al change noting mild subcortical and periventricular microangiopathic disease. No extra-axial fluid collection is seen. Ventricles, sulci, cisterns: Prominent secondary to involutional change. Intracranial vasculature: There is atherosclerotic calcification of the cavernous carotid artery. Calvarium: Unremarkable. Sinuses and mastoids: The visualized paranasal sinuses are clear. The mastoid air cells are well pneu matized. Orbits: The bony orbits are grossly intact. There are bilateral ocular lens implants. IMPRESSION: 1. Again seen is a large subacute/evolving right parieto-occipital infarct. 2. There is no hemorrhage or midline shift. 3. Additional chronic infarcts as above. ACT 112: Negative or not required by law. Electronically signed by: Donavon Littlejohn M.D. 08/19/2023 3:02 PM
--- NOTE | 2023-08-19 15:15 | Hospitalist Progress Note ---
Date of Service August 19, 2023 Assessment & Plan (1) Hypovolemic shock: (2) Anemia: (3) Acute gastrointestinal bleeding: (4) Anticoagulant long-term use: Plan: per previous hospitalist notes with addendum: Initially admitted to ICU -> transferred to PCU next day when hemodynamically stable Patient presenting from home with reports of generalized weakness and dark tarry stools. In the ED, found to be hypotensive and Hgb 3.9, INR 2.2 Recent hx of elev. INR as outpt S/p vitamin K, Kcentra, desmopressin in the ED Transfused PRBC, FFP, per ED and ICU PPI drip GI consulted - pt underwent EGD on (08/13/23) - Findings: The examined esophagus was normal. The entire examined stomach was normal. There was a large submucosal nodule likely a lipoma in the gastric body. The duodenal bulb and second portion of the duodenum were normal. Impression: - Normal esophagus. - Normal stomach. 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 - Normal duodenal bulb and second portion of the duodenum. - No specimens collected. Recommendation: - Return patient to hospital hopper for ongoing care. - EUS electively as OP to confirm the lipoma. - Monitor H/H. - If any signs of rebleeding then please obtain a bleeding scan to localize the source. 08/16 - Pt reports abd. pain./ discomfort - increased - CT abdomen w/o con ordered FINDINGS: Lung bases: The heart is normal in size and without pericardial effusion. The lung bases are clear noting mild dependent atelectasis. Liver: The unenhanced liver is normal in size, contour, and attenuation. There is no intrahepatic biliary ductal dilatation. Gallbladder: Surgically absent noting clips in the gallbladder fossa. Spleen: Normal in size and attenuation. Pancreas: The unenhanced pancreas is mildly atrophic and grossly unremarkable. Adrenal glands: A 1.5 cm left adrenal nodule meets criteria for a fat-containing adenoma. The right adrenal gland is normal in appearance. Kidneys: The unenhanced kidneys demonstrate mild cortical atrophy and are without hydronephrosis. Foci of cortical scarring are seen on the left. No renal calculi are identified. There is no evidence of contour deforming renal mass lesion. Abdominal vasculature: The abdominal aorta is normal in course and caliber noting mild atherosclerotic calcification. Bowel: There is no bowel obstruction. A metallic foreign body is present within the right colon on image #[id number]. The appendix is well-visualized and normal. Peritoneum: There is no intraperitoneal free air or abdominal ascites. Lymphadenopathy: None. Pelvic viscera: The bladder is normal as visualized. The uterus is surgically absent. No adnexal lesion is seen. Skeletal structures: The skeletal structures are osteopenic. There is mild to moderate lumbosacral spondylosis. Arthritic change is noted in the hips. No lytic or blastic lesions are seen. IMPRESSION: No acute infectious or inflammatory findings are identified in the abdomen or pelvis. Discussed findings w/ radiologist. Also seen by GI on 08/16 re: recommendation for warfarin vs. further studies - per GI ok to restart warfarin - however pt hesitant and does not wish to restart the med at this time Reviewed cardiology consult note from previous admission in 07/2023 - the diagnosis of atrial fibrillation first appears in her chart in 2009 and is associated with her Coumadin therapy. The patient however is unaware of the term atrial fibrillation. I had been unable to find any definite EKG evidence of atrial fibrillation but the patient did have a documented history of recurrent stroke events and transesophageal echocardiogram performed in [place] in 2016 revealed an atrial septal aneurysm and PFO and ongoing anticoagulation for secondary prevention of stroke was recommended. It appears that she is been on Coumadin since proximally 2003. Acute CVA This AM notified by PT that pt is feeling dizzy, has facial numbness, and vision changes and reports to PT that she feels like having a stroke. Pt has hx of prior CVAs reportedly - I ordered stat CT head and came to evaluate pt immediately. She was awake, alert and answering appropriately, no facial droop, speech clear, moving all extremities and following commands. However she tells me that "she can't see half of me". And she is feeling very anxious - pt reports chronic anxiety. I had pt cover one eye at a time she continued to report that she can only see half of me (pt's right side). Talked to pt's RN and asked to call stroke alert for the pt. In addition ordered CT angio head and neck. Discussed w/[facility] stroke neuro at the bedside - would not recommend thrombolytics given pt admitted with profound anemia / GI bleed. Per his exam pt was only deficient in one eye. Recommends brain MRI, ophthalmology eval and migraine cocktail. MRI and ophtho consult ordered. CT head - negative [place] head/ neck - 1. 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 2. Otherwise unremarkable CTA of the head and neck. 3. Chronic left MCA infarct. 08/18 Acute CVA 1. Moderate-sized acute right parieto-occipital infarct. 2. No acute intracranial hemorrhage or midline shift. 3. Chronic MCA infarcts with chronic white matter disease. Patient still having left-sided hemianopsia Neurologist consulted, evaluated the patient today Repeat echo performed Inquiring with neurology service regarding resuming Coumadin Blood pressure on the lower side, IV fluid boluses given to maintain good cerebral perfusion Hemoglobin stable 08/[address] head: 1. Again seen is a large subacute/evolving right parieto-occipital infarct. 2. There is no hemorrhage or midline shift. 3. Additional chronic infarcts as above. echo: no ASD, PFO cannot be assessed Doppler US LE: no DVT continue IV fluids cannot restart coumadin due to large infarct start Lipito 40mg daily PT/OT eval SCDs for DVT Prophylaxis (5) Elevated lactic acid level: (6) UTI (urinary tract infection): Plan: Lactate 5.9 --> 2.4 Likely secondary to hypoperfusion from profound anemia and hypotension. Possible sepsis given positive UA, mild leukocytosis, WBC 11.9. Currently afebrile. Transfuse PRBC, trend lactate, IV ceftriaxone for UTI urine cultx - posit for e. coli - pansensitive, cont. ceftriaxone for now (7) COPD (chronic obstructive pulmonary disease): (8) Chronic respiratory failure with hypoxia: Plan: No signs of acute exacerbation Continue home inhalers Saturating well on chronic 4 liters of oxygen (9) Chronic diastolic CHF (congestive heart failure): Plan: Appears compensated (10) Paroxysmal A-fib: Plan: Rate controlled on metoprolol Anticoagulated on Coumadin -holding due to profound anemia, hypovolemic shock, GI bleeding and acute large size CVA (11) Depression, unspecified: (12) Anxiety disorder, unspecified: Plan: patient reporting increased anxiety requesting to increase Ativan will consult Psych DVT PROPHYLAXIS SCDs due to anemia, GI bleeding, acute large CVA Admission and Anticipated Discharge Date Admission Date: August 12, 2023 Subjective ff up for acute cva etc seen resting in bed, not in distress reports headache since this morning visual field deficits the same no new neuro symptoms no chest pain, dyspnea, palpitations, dizziness reports increasing anxiety no other new symptoms Review of Systems Review of Systems: all noted and negative except for above Physical Exam Physical Exam: General- oriented x 3, not in distress, speaks in sentences with no effort or accessory muscle use Eyes- anicteric Neck- no JVD Lungs- clear breath sounds bilaterally, no rales/wheezes Heart- normal rate, regular rhythm; no murmurs Abdomen- normal bowel sounds, nondistended, soft, nontender Extremities- no pretibial edema, no calf tenderness Neuro- alert, oriented x 3; no new gross focal neurologic deficits Skin- warm & dry Results & Data Results & Data Vital Signs (Past 12 Hours) Vital Signs Temp Pulse Resp BP BP Pulse Ox O2 Del Method 08/19/23 15:06 82 18 96 Nasal Cannula 08/19/23 08:00 Nasal Cannula 08/19/23 11:00 36.6 C 97 H 18 109/64 97 Nasal Cannula 08/19/23 10:51 87 15 98 Nasal Cannula 08/19/23 08:01 36.7 C 97 H 18 115/77 97 Nasal Cannula 08/19/23 03:15 36.6 C 99 H 20 111/56 L 93 Nasal Cannula O2 Flow Rate 08/19/23 15:06 4 08/19/23 08:00 4 08/19/23 11:00 4 08/19/23 10:51 4.5 08/19/23 08:01 4 08/19/23 03:15 4 all noted and reviewed including below
[2023-08-19] MEDS: MIRTAZAPINE TAB 15 MG TAB PO SCH (20:49)
[2023-08-19] MEDS: MONTELUKAST SODIUM 10 MG TABLET PO SCH (20:50)
[2023-08-19] MEDS: cefTRIAXone SODIUM 2,000 MG in DEXTROSE 5% 50 ML IV SCH (20:57)
[2023-08-20] MEDS: LORazepam 0.5 MG TAB PO PRN ×3 (03:23→15:52)
[2023-08-20] MEDS: traMADol HCL 50 MG TABLET PO PRN ×4 (03:24→19:57)
[2023-08-20] MEDS: SODIUM CHLORIDE 0.9% 1,000 ML IV SCH ×2 (05:09→11:07)
[2023-08-20] MEDS: ALBUTEROL 0.083% NEBU SOLN 3 ML VIAL NEB SCH ×4 (07:04→19:13)
[2023-08-20] MEDS: METOPROLOL SUCC 25MG EXT REL TAB PO SCH (08:04)
[2023-08-20] MEDS: ADVANCED PROBIOTIC 1250 MG CAPSULE PO SCH (08:05)
[2023-08-20] MEDS: OXYBUTYNIN CHLORIDE XL 5 MG TABCR PO SCH (08:05)
[2023-08-20] MEDS: busPIRone 5 MG TAB PO SCH ×2 (08:07→20:00)
[2023-08-20] MEDS: UMECLIDINIUM BROMIDE 62.5MCG/BLISTER 7 PUFFS/INHALER INH SCH (08:07)
[2023-08-20] MEDS: FLUTICASONE/VILANTEROL 100/25MCG 14 PUFFS/INHALER INH SCH (08:07)
[2023-08-20] MEDS: MICONAZOLE NITRATE 2% CR 30 GM TUBE EXT SCH ×2 (08:08→20:00)
[2023-08-20] MEDS ORDERED: LORazepam 0.5 MG TAB PO STA (11:34)
--- NOTE | 2023-08-20 13:08 | Psychiatric Consultation ---
Date of Consultation August 20, 2023 Impression / Recommendations Impression Diagnostically consistent with worsening SIMA and likely anxiety 2/2 to new medical issues including GI bleed/acute stroke and adjustment disorder with mixed anxiety and depressed mood in context of recent severe medical issues and ICU admission. Acute risk of self-harm is low given denial of SI, future- oriented, has outpatient psych care. Sodium is normal and QTc <500ms. Historically per PDMP she has been prescribed ativan 0.5mg TID prn for anxiety so it is not too surprising that in the context of her new stroke and severe medical issues leading to ICU admission that she is now even more anxious and ativan is not providing huge relief as she likely has significant tolerance at baseline. Could consider increasing dose to 1mg TID prn as this may provide more benefit versus trial of Klonopin (liver function appears to be stable) for possible longer duration of effect. In either case would continue to monitor her breathing carefully given underlying COPD and potential for further respiratory depression as well possibility to contribute to or cause delirium which she is already at elevated risk for given ICU admission, new stroke, history of strokes. Overall, I spent a total of 60 minutes with this case including review of chart records, review of labwork, review of EKG QTc, direct evaluation of the patient at bedside, counseling the patient, discussion of the patient with the Nurse and with the hospitalist provider, discussion with the psychiatric liason during clinical rounds, and documentation in the electronic health record. (1) Adjustment disorder with mixed anxiety and depressed mood: (2) SIMA (generalized anxiety disorder): (3) Anxiety about health: (4) Left homonymous hemianopsia: (5) Acute blood loss anemia: (6) Chronic diastolic CHF (congestive heart failure): Plan -Consider starting an SSRI such as sertraline 50mg daily to help reduce anxiety longer-term, monitor QTc and ensure this remains <500ms -Consider increasing lorazepam from 0.5mg QID prn to 1mg TID prn for further anxiety benefit (only for short-term during this acute medical admission, would return to her prior outpatient dose prior to discharge or as sertraline takes effect) versus clonazepam 0.5mg TID prn -Vistaril 25mg QID prn for anxiety as additional option (caution for anticholinergic effects if she develops any signs of delirium) -Continue with mirtazapine 30mg HS as this should continue to offer some anxiety and mood benefits as well as helping with insomnia/appetite -Continue buspar 20mg BID (this could be increased in the future but less likely to offer more immediate benefits) -Continue to optimize management of her other chronic and new acute health conditions Psych History Identifying Data 63 yo woman with history of depression, SIMA with panic attacks, COPD on oxygen, pafib, CHF, RUFINA and history of strokes was admitted medically for hypovolemic shock and left visual field deficit from suspected new acute stroke. Psychiatry consulted for recommendations for anxiety. Chief Complaint "I'm so anxious, I need something to help". History of Present Illness Kimberly reports worsening anxiety and depression since ICU admission and new stroke deficits (now with vision of left eye impacted). She is also having difficulty physically moving around and feels her anxiety is getting in the way of her participating in self-care or PT. She has been receiving ativan but feels this is "not really helping, just takes the edge off". She is not noticeably anxious during our conversation but describes feeling easily overwhelmed and that she doesn't want to be continuously pushing her call button for the RNs due to her distress. She endorses some depressive symptoms including poor appetite and sleep but denies any SI and is future-oriented about going to [facility] for physical rehab and then returning to her home. She's also excited about meeting her new great grandson who will be born in early September. She has good support at home via her granddaughter who provides 40hours of skilled care per week. She denies any substance use. She has an outpatient psychiatrist Dr. Soni via [facility]. She has been on SSRIs in the past as well as SNRIs but doesn't recall any being very helpful. Further history per psych liason from 08/19/2023: "Met with Kimberly for initial psychiatric consult for complaint of anxiety. She states that she has always dealt with anxiety but that it has become worse over the past few weeks due to her worsening physical health. She states that previously her anxiety was able to be managed by PRN Ativan 0.5mg q8h which her outpatient psychiatrist, Hugo Soni, prescribes as well as her Buspar. She reports that when she is feeling anxious she has trouble breathing and talking, experiences chest pain and that it normally lasts a long time. She scored an 18 on the PHQ-9, stating that she often feels down and bad about herself and has difficulty with concentration and sleeping. She answered #9 a 0, denying any thoughts to harm herself and denied suicidal ideation. When going over her history, she notes that she had a "breakdown" in 2004 following the passing of her daughter and was inpatient at the [facility]. She states that she does have a good support system consisting of many of her family members." Allergies Allergy/AdvReac Type Severity Reaction Status Date / Time aspirin Allergy Unknown TAKES Verified 08/13/23 10:10 COUMADIN salicylates AdvReac Unknown ?DUE TO Verified 08/13/23 10:10 COUMADIN? Home Medications Medication Instructions Recorded Confirmed Type albuterol sulfate 5 mg/mL(0.5 %) 2.5 mg inhalation DIRECTED PRN 08/20/22 08/12/23 History solution for nebulization Shortness Of Breath Or Wheezing albuterol sulfate 90 mcg/actuation 2 puff inhalation QID PRN sob 08/20/22 08/12/23 History aerosol inhaler baclofen 10 mg tablet 10 mg PO TID PRN Muscle Pain 08/20/22 08/12/23 History buspirone 10 mg tablet 20 mg PO AMHS 08/20/22 08/12/23 History cholecalciferol (vitamin D3) 25 25 mcg PO QAM 08/20/22 08/12/23 History mcg (1,000 unit) capsule (Vitamin D3) isosorbide mononitrate 30 mg 30 mg PO QAM 08/20/22 08/12/23 History tablet,extended release 24 hr lorazepam 0.5 mg tablet 0.5 mg PO Q8 PRN Anxiety 08/20/22 08/12/23 History tramadol 100 mg tablet 100 mg PO Q8 PRN .MOD-SEVERE PAIN 08/20/22 08/12/23 History warfarin 5 mg tablet 2.5 mg PO MOWEFR@1600 08/20/22 08/12/23 History ferrous sulfate 325 mg (65 mg 325 mg PO QAM 01/12/23 08/12/23 History iron) tablet acetaminophen 300 mg-codeine 30 mg 1 tab PO Q6 PRN Moderate Pain 07/15/23 08/12/23 History tablet (Scale Score 5-6) fluticasone propionate 115 2 puff inhalation AMHS 07/15/23 08/12/23 History mcg-salmeterol 21 mcg/actuation HFA inhaler (Advair HFA) metoprolol succinate 25 mg 25 mg PO QAM 07/15/23 08/12/23 History tablet,extended release 24 hr omeprazole 20 mg capsule,delayed 20 mg PO AMHS 07/15/23 08/12/23 History release potassium chloride 10 mEq 10 meq PO AMHS 07/15/23 08/12/23 History capsule,extended release solifenacin 10 mg tablet 10 mg PO QAM 07/15/23 08/12/23 History warfarin 5 mg tablet 5 mg PO SUTUTHSA 07/15/23 08/12/23 History furosemide 20 mg tablet (Lasix) 40 mg PO BID #30 tabs 07/23/23 08/12/23 Rx miconazole nitrate 2 % topical 1 applic EXT BID #28 grams 07/23/23 08/12/23 Rx cream montelukast 10 mg tablet 10 mg PO HS #30 tabs 07/23/23 08/12/23 Rx umeclidinium 62.5 mcg/actuation 1 inh inhalation DAILY #30 ea 07/23/23 08/12/23 Rx blister powder for inhalation (Incruse Ellipta) Patient History Medical History (Updated 08/20/23 @ 13:31 by Shaye Sylvester MD) Anemia Anticoagulated on Coumadin Anxiety and depression Chronic pain on daily narcotics (tramadol PRN) Chronic respiratory failure with hypoxia Congestive heart failure follows with [facility] cardiology ([facility]) COPD (chronic obstructive pulmonary disease) Degenerative disc disease Dementia "very early stages" Alert and oriented x3. granddaughter is the caregiver of patient. Diarrhea started about 1 year ago -- will come and go. Encounter for pre-operative examination History of COVID-19 Spring 2020. treated at [facility] inpatient. symptoms included: sob, cough, desaturation 84-87%, congestion, headache, fatigue. no ventilator at the time. no current problems. History of stroke "embolic stroke, underlying PFO" total of 9 strokes -> last stroke ~6+years ago. damaged urinary nerve and mild left sided weakness. Hypertension Morbid obesity On home oxygen therapy continuous 3lpm via n/c. (will increase to 4lpm via n/c if needed) Osteoarthritis Paroxysmal A-fib feels her heart race at times. Peripheral neuropathy Post traumatic stress disorder Sleep apnea mild RUFINA (dx in ) no machine currently -- pt to have another sleep study february 2023. Submucosal lesion of stomach Noted on EGD 11/06/20 Swelling of left hand Urinary incontinence Surgical History H/O colonoscopy H/O esophagogastroduodenoscopy History of cardiac cath [facility] - "long time ago" -- pt unsure of details. History of cataract surgery bilateral Hx of lumpectomy left breast (benign) Status post cholecystectomy Status post hernia repair Right inguinal Status post hysterectomy MERT with BSO Family History Grandmother (Maternal) FHx: bladder cancer Father FHx: stroke Other Heart disease No family history of adverse response to anesthesia Social History Smoking Status: Former smoker Tobacco Type: Cigarettes Second Hand Exposure: No; Do You Dip or Chew Tobacco: No; Hx Alcohol Use: No Hx Substance Use: No Preferred Language: [place]ese Communication Ability: Effective Sieve Grader Tender Required: No Beliefs That Will Affect Care: None marital status: / Current Living Situation: Alone Current Living Situation Comment: Granddaughter is the caregiver. Comes M-F 8am-4pm. Other Information That Helps Us Care for You: No Feels Safe at Home: Yes Safety Concerns: Feels Safe At This Time Assistive Devices: Denture - Upper, Glasses, Hospital Bed, Oxygen - Continuous, Scooter/Electric Scooter, Walker and Wheelchair Physical Exam Psychiatric: Orientation: alert and oriented x 3 Apperance: appropriately dressed and appropriately groomed Eye Contact: good eye contact Motor Behavior: no abnormal motor movements Speech: normal rate/rhythm/volume of speech Affect: + constricted affect Mood: + depressed mood and + anxious mood Thought Process: goal directed thought process Thought Content: reality based without delusions Suicidal Thoughts: denies suicidal thoughts Homicidal Thoughts: denies homicidal thoughts Hallucinations: no auditory hallucinations and no visual hallucinations Cognition: recent memory grossly intact, remote memory grossly intact, attention grossly intact and language grossly intact Estimated Intelligence: consistent with education level Insight: + limited insight Judgment: + limited judgement Vital Signs (Past 24 Hours): Last Vital Signs Temp 36.8 C 08/20/23 12:40 Pulse 79 08/20/23 12:40 Resp 18 08/20/23 12:40 BP 128/66 08/20/23 12:40 Pulse Ox 99 08/20/23 12:40 O2 Del Method Nasal Cannula 08/20/23 12:40 O2 Flow Rate 3 08/20/23 12:40 Review of Systems All systems reviewed & are unremarkable except as noted in HPI & below (overall pain) Results & Data (PSY) Medications Administered Acetaminophen (Acetaminophen 500 Mg Tab) 1,000 mg PO Q8H PRN PRN Reason: Pain Stop: 09/12/23 09:37 Last Admin: 08/13/23 18:26 Dose: 1,000 mg Documented By: Admin: 08/13/23 12:40 Dose: 1,000 mg Documented By: CHARLA Acetaminophen/Codeine Phosphate (Acetaminophen W/Codeine #3 1 Tab) 1 tab PO Q6 PRN PRN Reason: Moderate Pain (Scale Score 5-6) Stop: 09/13/23 14:11 Last Admin: 08/18/23 20:41 Dose: 1 tab Documented By: Admin: 08/18/23 09:00 Dose: 1 tab Documented By: HANS Albuterol (Albuterol Hfa 8 Gm Inhaler) 2 puffs INH QID PRN PRN Reason: sob Stop: 09/13/23 14:11 Last Admin: 08/16/23 18:03 Dose: 2 puffs Documented By: Admin: 08/15/23 13:24 Dose: 2 puffs Documented By: MARIANNA Albuterol (Albuterol 0.083% Nebu Soln 3 Ml Vial) 2.5 mg NEB QIDR MARY; Protocol Stop: 09/15/23 18:59 Last Admin: 08/20/23 11:33 Dose: Not Given Documented By: Admin: 08/20/23 07:04 Dose: 2.5 mg Documented By: TMDarryl Admin: 08/19/23 19:32 Dose: 2.5 mg Documented By: EMJosh Admin: 08/19/23 15:06 Dose: 2.5 mg Documented By: Admin: 08/19/23 10:50 Dose: 2.5 mg Documented By: [id number] Admin: 08/19/23 07:51 Dose: Not Given Documented By: [id number] Admin: 08/18/23 19:15 Dose: Not Given Documented By: Admin: 08/18/23 14:54 Dose: 2.5 mg Documented By: Admin: 08/18/23 10:52 Dose: 2.5 mg Documented By: Admin: 08/18/23 07:07 Dose: 2.5 mg Documented By: Admin: 08/17/23 19:34 Dose: Not Given Documented By: Admin: 08/17/23 15:17 Dose: Not Given Documented By: Admin: 08/17/23 10:50 Dose: Not Given Documented By: Admin: 08/17/23 07:21 Dose: 2.5 mg Documented By: Admin: 08/16/23 19:34 Dose: Not Given Documented By: INDIA Baclofen (Baclofen 10 Mg Tab) 10 mg PO BID PRN PRN Reason: back spasm Stop: 09/12/23 20:59 Last Admin: 08/16/23 14:12 Dose: 10 mg Documented By: CYNTHIA Buspirone HCl (Buspirone 5 Mg Tab) 20 mg PO AMHS [facility] Stop: 09/11/23 20:59 Last Admin: 08/20/23 08:07 Dose: 20 mg Documented By: Admin: 08/19/23 20:49 Dose: 20 mg Documented By: Admin: 08/19/23 08:32 Dose: 20 mg Documented By: Admin: 08/18/23 20:37 Dose: 20 mg Documented By: Admin: 08/18/23 08:54 Dose: 20 mg Documented By: Admin: 08/17/23 21:06 Dose: 20 mg Documented By: Admin: 08/17/23 07:41 Dose: 20 mg Documented By: Admin: 08/16/23 20:24 Dose: 20 mg Documented By: Admin: 08/16/23 07:52 Dose: 20 mg Documented By: Admin: 08/15/23 19:54 Dose: 20 mg Documented By: Admin: 08/15/23 08:14 Dose: 20 mg Documented By: Admin: 08/14/23 20:18 Dose: 20 mg Documented By: Admin: 08/14/23 08:08 Dose: 20 mg Documented By: Admin: 08/13/23 20:17 Dose: 20 mg Documented By: Admin: 08/13/23 07:40 Dose: 20 mg Documented By: Admin: 08/12/23 21:19 Dose: 20 mg Documented By: CF Fluticasone/Vilanterol (Fluticasone/Vilanterol 100/25mcg 14 Puffs/Inhaler) 1 puffs INH DAILY MARY Stop: 09/11/23 20:29 Last Admin: 08/20/23 08:07 Dose: 1 puffs Documented By: Admin: 08/19/23 08:32 Dose: 1 puffs Documented By: Admin: 08/18/23 08:55 Dose: 1 puffs Documented By: Admin: 08/17/23 07:42 Dose: 1 puffs Documented By: Admin: 08/16/23 07:51 Dose: 1 puffs Documented By: Admin: 08/15/23 08:15 Dose: 1 puffs Documented By: Admin: 08/14/23 08:08 Dose: 1 puffs Documented By: Admin: 08/13/23 07:40 Dose: 1 puffs Documented By: Admin: 08/12/23 21:27 Dose: 1 puffs Documented By: JANNETTE Ceftriaxone Sodium 2,000 mg/ (Dextrose) 70 mls @ 100 mls/hr IV Q24H MARY; Protocol Stop: 08/23/23 18:59 Last Infusion: 08/19/23 22:47 Dose: 0 mls/hr Documented By: Admin: 08/19/23 20:57 Dose: 100 mls/hr Documented By: Infusion: 08/18/23 19:37 Dose: 0 mls/hr Documented By: Admin: 08/18/23 18:49 Dose: 100 mls/hr Documented By: Infusion: 08/17/23 21:15 Dose: 0 mls/hr Documented By: Admin: 08/17/23 20:27 Dose: 100 mls/hr Documented By: Infusion: 08/16/23 20:29 Dose: 0 mls/hr Documented By: Admin: 08/16/23 19:45 Dose: 100 mls/hr Documented By: Infusion: 08/15/23 20:35 Dose: 0 mls/hr Documented By: Admin: 08/15/23 19:54 Dose: 100 mls/hr Documented By: Infusion: 08/14/23 21:00 Dose: 0 mls/hr Documented By: Admin: 08/14/23 20:18 Dose: 100 mls/hr Documented By: Infusion: 08/13/23 20:52 Dose: 0 mls/hr Documented By: Admin: 08/13/23 20:17 Dose: 100 mls/hr Documented By: GH Lactobacillus Acidophilus (Advanced Probiotic 1250 Mg Capsule) 2 cap PO DAILY MARY Stop: 09/14/23 16:14 Last Admin: 08/20/23 08:05 Dose: 2 cap Documented By: Admin: 08/19/23 08:32 Dose: 2 cap Documented By: Admin: 08/18/23 08:55 Dose: 2 cap Documented By: Admin: 08/17/23 07:41 Dose: 2 cap Documented By: Admin: 08/16/23 07:52 Dose: 2 cap Documented By: Admin: 08/15/23 16:42 Dose: 2 cap Documented By: Lorazepam (Lorazepam 0.5 Mg Tab) 0.5 mg PO Q6H PRN PRN Reason: Anxiety Stop: 09/12/23 18:12 Last Admin: 08/20/23 09:33 Dose: 0.5 mg Documented By: Admin: 08/20/23 03:23 Dose: 0.5 mg Documented By: ALISHA Metoprolol Succinate (Metoprolol Succ 25mg Ext Rel Tab) 25 mg PO QAM MARY Stop: 09/13/23 14:14 Last Admin: 08/20/23 08:04 Dose: 25 mg Documented By: Admin: 08/19/23 08:33 Dose: 25 mg Documented By: Admin: 08/18/23 08:56 Dose: Not Given Documented By: Admin: 08/17/23 07:40 Dose: 25 mg Documented By: Admin: 08/16/23 07:53 Dose: 25 mg Documented By: Admin: 08/15/23 08:14 Dose: 25 mg Documented By: Admin: 08/14/23 15:20 Dose: 25 mg Documented By: Miconazole Nitrate (Miconazole Nitrate 2% Cr 30 Gm Tube) 1 appln EXT BID MARY Stop: 09/13/23 20:59 Last Admin: 08/20/23 08:08 Dose: 1 appln Documented By: Admin: 08/19/23 20:48 Dose: 1 appln Documented By: Admin: 08/19/23 08:33 Dose: 1 appln Documented By: Admin: 08/18/23 20:37 Dose: 1 appln Documented By: Admin: 08/18/23 08:55 Dose: 1 appln Documented By: Admin: 08/17/23 21:07 Dose: 1 appln Documented By: Admin: 08/17/23 07:46 Dose: 1 appln Documented By: Admin: 08/16/23 20:25 Dose: 1 appln Documented By: Admin: 08/16/23 07:54 Dose: 1 appln Documented By: Admin: 08/15/23 19:55 Dose: 1 appln Documented By: Admin: 08/15/23 08:15 Dose: 1 appln Documented By: Admin: 08/14/23 20:18 Dose: 1 appln Documented By: GH Mirtazapine (Mirtazapine Tab 15 Mg Tab) 30 mg PO HS MARY Stop: 09/11/23 20:59 Last Admin: 08/19/23 20:49 Dose: 30 mg Documented By: Admin: 08/18/23 20:38 Dose: 30 mg Documented By: Admin: 08/17/23 21:06 Dose: 30 mg Documented By: Admin: 08/16/23 20:26 Dose: 30 mg Documented By: Admin: 08/15/23 19:54 Dose: 30 mg Documented By: Admin: 08/14/23 20:18 Dose: 30 mg Documented By: Admin: 08/13/23 20:17 Dose: 30 mg Documented By: Admin: 08/12/23 21:18 Dose: 30 mg Documented By: CF Montelukast Sodium (Montelukast Sodium 10 Mg Tablet) 10 mg PO HS MARY Stop: 09/11/23 20:59 Last Admin: 08/19/23 20:50 Dose: 10 mg Documented By: Admin: 08/18/23 20:38 Dose: 10 mg Documented By: Admin: 08/17/23 21:06 Dose: 10 mg Documented By: Admin: 08/16/23 20:26 Dose: 10 mg Documented By: Admin: 08/15/23 19:54 Dose: 10 mg Documented By: Admin: 08/14/23 20:17 Dose: 10 mg Documented By: Admin: 08/13/23 20:17 Dose: 10 mg Documented By: Admin: 08/12/23 21:17 Dose: 10 mg Documented By: CF Oxybutynin Chloride (Oxybutynin Chloride Xl 5 Mg Tabcr) 10 mg PO QAM [facility]; Protocol Stop: 09/12/23 08:59 Last Admin: 08/20/23 08:05 Dose: 10 mg Documented By: Admin: 08/19/23 08:33 Dose: 10 mg Documented By: Admin: 08/18/23 08:56 Dose: 10 mg Documented By: Admin: 08/17/23 07:43 Dose: 10 mg Documented By: Admin: 08/16/23 07:54 Dose: 10 mg Documented By: Admin: 08/15/23 08:14 Dose: 10 mg Documented By: Admin: 08/14/23 08:08 Dose: 10 mg Documented By: Admin: 08/13/23 07:40 Dose: 10 mg Documented By: CHARLA Tramadol HCl (Tramadol Hcl 50 Mg Tablet) 50 mg PO Q4H PRN PRN Reason: Pain Stop: 09/12/23 15:03 Last Admin: 08/20/23 13:00 Dose: 50 mg Documented By: Admin: 08/20/23 08:01 Dose: 50 mg Documented By: Admin: 08/20/23 03:24 Dose: 50 mg Documented By: Admin: 08/19/23 21:08 Dose: 50 mg Documented By: Admin: 08/19/23 13:51 Dose: 50 mg Documented By: Admin: 08/19/23 07:50 Dose: 50 mg Documented By: Admin: 08/19/23 02:22 Dose: 50 mg Documented By: Admin: 08/18/23 18:44 Dose: 50 mg Documented By: Admin: 08/18/23 11:41 Dose: 50 mg Documented By: Admin: 08/18/23 07:43 Dose: 50 mg Documented By: Admin: 08/18/23 03:59 Dose: 50 mg Documented By: Admin: 08/17/23 23:11 Dose: 50 mg Documented By: Admin: 08/17/23 19:10 Dose: 50 mg Documented By: Admin: 08/17/23 07:39 Dose: 50 mg Documented By: Admin: 08/16/23 12:00 Dose: 50 mg Documented By: Admin: 08/16/23 07:47 Dose: 50 mg Documented By: Admin: 08/16/23 01:57 Dose: 50 mg Documented By: Admin: 08/15/23 18:23 Dose: 50 mg Documented By: Admin: 08/15/23 12:25 Dose: 50 mg Documented By: Admin: 08/15/23 06:40 Dose: 50 mg Documented By: Admin: 08/14/23 20:17 Dose: 50 mg Documented By: Admin: 08/14/23 12:56 Dose: 50 mg Documented By: Admin: 08/14/23 08:07 Dose: 50 mg Documented By: Admin: 08/13/23 18:27 Dose: 50 mg Documented By: Umeclidinium [place] (Umeclidinium [place] 62.5mcg/Blister 7 Puffs/Inhaler) 1 puffs INH DAILY MARY Stop: 09/12/23 08:59 Last Admin: 08/20/23 08:07 Dose: 1 puffs Documented By: Admin: 08/19/23 08:32 Dose: 1 puffs Documented By: Admin: 08/18/23 08:56 Dose: 1 puffs Documented By: Admin: 08/17/23 07:42 Dose: 1 puffs Documented By: Admin: 08/16/23 07:55 Dose: 1 puffs Documented By: Admin: 08/15/23 08:15 Dose: 1 puffs Documented By: Admin: 08/14/23 08:08 Dose: 1 puffs Documented By: Admin: 08/13/23 07:41 Dose: 1 puffs Documented By: CHARLA Coding Level of Care Code 31697 IN/OBS CONSULT LVL 4,60M Diagnoses Adjustment disorder with mixed anxiety and depressed mood F43.23 SIMA (generalized anxiety disorder) F41.1 Anxiety about health F41.8 Left homonymous hemianopsia H53.462 Acute blood loss anemia D62 Chronic diastolic CHF (congestive heart failure) I50.32
[2023-08-20] MEDS: ACETAMINOPHEN W/CODEINE #3 1 TAB PO PRN (15:51)
--- NOTE | 2023-08-20 15:59 | XRay Report ---
SINGLE VIEW CHEST CLINICAL HISTORY: Wheezing FINDINGS: An AP, portable, upright chest radiograph is compared to study dated 07/21/2023 and correlate d with chest CT dated 08/12/2023. The heart is enlarged noting atherosclerotic calcification of the th oracic aorta. The pulmonary vasculature is noncongested. Chronic interstitial thickening similar to p revious. There is bibasilar scarring/atelectasis. No airspace consolidation or large pleural effusion is identified. No pneumothorax is seen. The skeletal structures are osteopenic. There are chronic/he aled left-sided rib fractures. IMPRESSION: Cardiomegaly with no acute cardiopulmonary abnormality. ACT 112: Negative or not required by law. Electronically signed by: Donavon Littlejohn M.D. 08/20/2023 3:58 PM
--- NOTE | 2023-08-20 16:41 | Hospitalist Progress Note ---
Date of Service August 20, 2023 Assessment & Plan (1) Hypovolemic shock: (2) Anemia: (3) Acute gastrointestinal bleeding: (4) Anticoagulant long-term use: Plan: per previous hospitalist notes with addendum: Initially admitted to ICU -> transferred to PCU next day when hemodynamically stable Patient presenting from home with reports of generalized weakness and dark tarry stools. In the ED, found to be hypotensive and Hgb 3.9, INR 2.2 Recent hx of elev. INR as outpt S/p vitamin K, Kcentra, desmopressin in the ED Transfused PRBC, FFP, per ED and ICU PPI drip GI consulted - pt underwent EGD on (08/13/23) - Findings: The examined esophagus was normal. The entire examined stomach was normal. There was a large submucosal nodule likely a lipoma in the gastric body. The duodenal bulb and second portion of the duodenum were normal. Impression: - Normal esophagus. - Normal stomach. 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 - Normal duodenal bulb and second portion of the duodenum. - No specimens collected. Recommendation: - Return patient to hospital hopper for ongoing care. - EUS electively as OP to confirm the lipoma. - Monitor H/H. - If any signs of rebleeding then please obtain a bleeding scan to localize the source. 08/16 - Pt reports abd. pain./ discomfort - increased - CT abdomen w/o con ordered FINDINGS: Lung bases: The heart is normal in size and without pericardial effusion. The lung bases are clear noting mild dependent atelectasis. Liver: The unenhanced liver is normal in size, contour, and attenuation. There is no intrahepatic biliary ductal dilatation. Gallbladder: Surgically absent noting clips in the gallbladder fossa. Spleen: Normal in size and attenuation. Pancreas: The unenhanced pancreas is mildly atrophic and grossly unremarkable. Adrenal glands: A 1.5 cm left adrenal nodule meets criteria for a fat-containing adenoma. The right adrenal gland is normal in appearance. Kidneys: The unenhanced kidneys demonstrate mild cortical atrophy and are without hydronephrosis. Foci of cortical scarring are seen on the left. No renal calculi are identified. There is no evidence of contour deforming renal mass lesion. Abdominal vasculature: The abdominal aorta is normal in course and caliber noting mild atherosclerotic calcification. Bowel: There is no bowel obstruction. A metallic foreign body is present within the right colon on image #[id number]. The appendix is well-visualized and normal. Peritoneum: There is no intraperitoneal free air or abdominal ascites. Lymphadenopathy: None. Pelvic viscera: The bladder is normal as visualized. The uterus is surgically absent. No adnexal lesion is seen. Skeletal structures: The skeletal structures are osteopenic. There is mild to moderate lumbosacral spondylosis. Arthritic change is noted in the hips. No lytic or blastic lesions are seen. IMPRESSION: No acute infectious or inflammatory findings are identified in the abdomen or pelvis. Discussed findings w/ radiologist. Also seen by GI on 08/16 re: recommendation for warfarin vs. further studies - per GI ok to restart warfarin - however pt hesitant and does not wish to restart the med at this time Reviewed cardiology consult note from previous admission in 07/2023 - the diagnosis of atrial fibrillation first appears in her chart in 2009 and is associated with her Coumadin therapy. The patient however is unaware of the term atrial fibrillation. I had been unable to find any definite EKG evidence of atrial fibrillation but the patient did have a documented history of recurrent stroke events and transesophageal echocardiogram performed in [place] in 2016 revealed an atrial septal aneurysm and PFO and ongoing anticoagulation for secondary prevention of stroke was recommended. It appears that she is been on Coumadin since proximally 2003. Acute CVA This AM notified by PT that pt is feeling dizzy, has facial numbness, and vision changes and reports to PT that she feels like having a stroke. Pt has hx of prior CVAs reportedly - I ordered stat CT head and came to evaluate pt immediately. She was awake, alert and answering appropriately, no facial droop, speech clear, moving all extremities and following commands. However she tells me that "she can't see half of me". And she is feeling very anxious - pt reports chronic anxiety. I had pt cover one eye at a time she continued to report that she can only see half of me (pt's right side). Talked to pt's RN and asked to call stroke alert for the pt. In addition ordered CT angio head and neck. Discuss[place] bedside - would not recommend thrombolytics given pt admitted with profound anemia / GI bleed. Per his exam pt was only deficient in one eye. Recommends brain MRI, ophthalmology eval and migraine cocktail. MRI and ophtho consult ordered. CT head - negative [place] head/ neck - 1. 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 2. Otherwise unremarkable CTA of the head and neck. 3. Chronic left MCA infarct. 08/18 Acute CVA 1. Moderate-sized acute right parieto-occipital infarct. 2. No acute intracranial hemorrhage or midline shift. 3. Chronic MCA infarcts with chronic white matter disease. Patient still having left-sided hemianopsia Neurologist consulted, evaluated the patient today Repeat echo performed Inquiring with neurology service regarding resuming Coumadin Blood pressure on the lower side, IV fluid boluses given to maintain good cerebral perfusion Hemoglobin stable 08/[address] head: 1. Again seen is a large subacute/evolving right parieto-occipital infarct. 2. There is no hemorrhage or midline shift. 3. Additional chronic infarcts as above. echo: no ASD, PFO cannot be assessed Doppler US LE: no DVT continue IV fluids cannot restart coumadin due to large infarct start Lipitor 40mg daily PT/OT eval SCDs for DVT Prophylaxis 08/20 requested Neuro to provide recommendations on when anticoagulation can be resumed discussed with Dr. Noel awaiting recommendations discussed with [employer] Dr. Pacheco, recommending Eliquis when ok with Neuro (5) Elevated lactic acid level: (6) UTI (urinary tract infection): Plan: Lactate 5.9 --> 2.4 Likely secondary to hypoperfusion from profound anemia and hypotension. Possible sepsis given positive UA, mild leukocytosis, WBC 11.9. Currently afebrile. Transfuse PRBC, trend lactate, IV ceftriaxone for UTI urine cultx - posit for e. coli - pansensitive, cont. ceftriaxone for now (7) COPD (chronic obstructive pulmonary disease): (8) Chronic respiratory failure with hypoxia: Plan: No signs of acute exacerbation Continue home inhalers Saturating well on chronic 4 liters of oxygen (9) Chronic diastolic CHF (congestive heart failure): Plan: Appears compensated (10) Paroxysmal A-fib: Plan: Rate controlled on metoprolol Anticoagulated on Coumadin -holding due to profound anemia, hypovolemic shock, GI bleeding and acute large size CVA (11) Depression, unspecified: (12) Anxiety disorder, unspecified: Plan: patient reporting increased anxiety requesting to increase Ativan will consult Psych DVT PROPHYLAXIS SCDs due to anemia, GI bleeding, acute large CVA Admission and Anticipated Discharge Date Admission Date: August 12, 2023 Subjective ff up for GI bleed, stroke, etc. seen resting in chair, comfortable no chest pain, dyspnea, palpitations, dizziness no new neuro symptoms reports increased anxiety no other symptoms Review of Systems Review of Systems: all noted and negative except for above Physical Exam Physical Exam: General- oriented x 3, not in distress, speaks in sentences with no effort or accessory muscle use Eyes- anicteric Neck- no JVD Lungs- faint wheeze at the bases Heart- normal rate, regular rhythm; no murmurs Abdomen- normal bowel sounds, nondistended, soft, nontender Extremities- no pretibial edema, no calf tenderness Neuro- alert, oriented x 3; no new gross focal neurologic deficits Skin- warm & dry Results & Data Results & Data Vital Signs (Past 12 Hours) Vital Signs Temp Pulse Pulse Resp BP Pulse Ox O2 Del Method 08/20/23 15:48 77 08/20/23 15:35 82 22 93 Nasal Cannula 08/20/23 12:40 36.8 C 79 18 128/66 99 Nasal Cannula 08/20/23 07:44 36.5 C 88 16 119/79 98 Nasal Cannula 08/20/23 08:00 74 08/20/23 07:46 Nasal Cannula 08/20/23 07:05 83 20 94 Nasal Cannula O2 Flow Rate 08/20/23 15:48 08/20/23 15:35 5 08/20/23 12:40 3 08/20/23 07:44 3 08/20/23 08:00 08/20/23 07:46 4 08/20/23 07:05 4 all noted and reviewed including below
--- NOTE | 2023-08-20 19:34 | Communication Note ---
Date of Service: August 20, 2023 63 y/o female with history of recurrent stroke, atrial septal aneurysm/PFO, COPD, ?atrial fibrillation, and heart failure that was admitted on 08/12 with hy povolemic shock and suspected acute GI bleed, and later developed left homonymous hemianopia secondary to acute right occipital stroke. Unable to obtain MRI brain. Repeat CTH on 08/28 with moderate sized right parieto- occipital infarct with no hemorrhage, reconfirmed on CTH on 08/19. TTE with EF 65-70%, normal sized left atrium, and agitated saline study nondiagnostic, no ASD but unable to assess for PFO. A1C 6.0. Venous Doppler ultrasound with no evidence of DVT. At admission, pt received vitamin K and K centra and anticoagulation was continued to be held due to suspected GI bleed. The pt und erwent EGD but no source of bleeding was identified. Per primary, GI bleed thought by GI to be related to supratherapeutic INR of 9 prior to admission. As such they have felt that it was acceptable to resume anticoagulation if INR remains therapeutic. However, per cardiology, as documented in prior history evidence of paroxysmal atrial fibrillation cannot be confirmed on review of the pt's record and the pt denies knowing of any history of atrial fibrillation. She has a history of recurrent stroke and PFO and at sometime, anticoagulation for secondary stroke prevention was recommended. Although the pt has had multiple prior strokes as well as now recurrent stroke in the setting of being off anticoagulation, it does not appear that there is a confirmed indication for anticoagulation. Could consider zio patch or extended cardiac monitoring and if pt with recurrent bleeding or not candidate for anticoagulation, Watchmen's could be considered. Per primary, in discussion with cardiology, cardiology has recommended resuming anticoagulation with eliquis. Given moderate sized stroke, if anticoagulation is to be resumed, would not resume before 08/22. Additionally, would recommend aspirin 81 mg until anticoagulation is resumed or if no AC if acceptable per primary/not true allergy, atorvastatin 40 mg, LDL, neurochecks q4, and telemetry.
[2023-08-20] MEDS: cefTRIAXone SODIUM 2,000 MG in DEXTROSE 5% 50 ML IV SCH (19:51)
[2023-08-20] MEDS: clonazePAM 0.5 MG TAB PO PRN (19:57)
[2023-08-20] MEDS: MONTELUKAST SODIUM 10 MG TABLET PO SCH (20:00)
[2023-08-20] MEDS: MIRTAZAPINE TAB 15 MG TAB PO SCH (20:00)
[2023-08-21] MEDS: traMADol HCL 50 MG TABLET PO PRN ×3 (00:14→16:43)
[2023-08-21] MEDS: ALBUTEROL 0.083% NEBU SOLN 3 ML VIAL NEB SCH ×4 (06:57→19:33)
[2023-08-21] MEDS: clonazePAM 0.5 MG TAB PO PRN (07:33)
[2023-08-21] MEDS: ADVANCED PROBIOTIC 1250 MG CAPSULE PO SCH (07:45)
[2023-08-21] MEDS: busPIRone 5 MG TAB PO SCH ×2 (07:45→19:54)
[2023-08-21] MEDS: OXYBUTYNIN CHLORIDE XL 5 MG TABCR PO SCH (07:46)
[2023-08-21] MEDS: METOPROLOL SUCC 25MG EXT REL TAB PO SCH (07:47)
[2023-08-21] MEDS: MICONAZOLE NITRATE 2% CR 30 GM TUBE EXT SCH ×2 (07:48→19:53)
[2023-08-21] MEDS: SERTRALINE HCL 50 MG TABLET PO SCH (07:50)
[2023-08-21] MEDS: UMECLIDINIUM BROMIDE 62.5MCG/BLISTER 7 PUFFS/INHALER INH SCH (07:51)
[2023-08-21] MEDS: FLUTICASONE/VILANTEROL 100/25MCG 14 PUFFS/INHALER INH SCH (07:51)
[2023-08-21 09:54] LABS: Calcium 7.7 mg/dl (8.6-10.3); Potassium 3.6 mmol/L (3.5-5.1)
[2023-08-21 10:00] LABS: BUN Creatinine Ratio 12.1 (10-20); Est GFR (African American) 113.7 ml/min; Est GFR (Non-African American) 98.1 ml/min
[2023-08-21 10:19] LABS: Basophils # (auto) 0.02 K/uL (0.00-0.20); Basophils % (auto) 0.3 %; Eosinophils # (auto) 0.14 K/uL (0.00-0.50); Hematocrit (blood only) 27.7 % (37.0-47.0); Hemoglobin 8.2 g/dl (12.0-16.0); Immature Granulocytes # (auto) 0.05 K/uL (0.01-0.20); Immature Granulocytes % (auto) 0.7 %; Lymphocytes # (auto) 1.01 K/uL (1.20-3.40); Lymphocytes % (auto) 14.2 %; Mean Corpuscular Hemoglobin 26.5 pg (25.0-34.0); Mean Corpuscular Hgb Conc 29.6 g/dL (32.0-36.0); Mean Corpuscular Volume 89.6 fL (80.0-100.0); Monocytes # (auto) 0.63 K/uL (0.11-0.59); Monocytes % (auto) 8.8 %; Neutrophils # (auto) 5.27 K/uL (1.40-6.50); Platelet Count 565 K/uL (130-400); RDW Coefficient of Variation 17.3 % (11.5-14.5); RDW Standard Deviation 56.2 fL (36.4-46.3); Red Blood Count 3.09 M/uL (4.20-5.40); White Blood Count 7.12 K/ul (4.8-10.8)
[2023-08-21] MEDS ORDERED: LORazepam 1 MG TAB PO STA (11:28)
[2023-08-21] MEDS ORDERED: FUROSEMIDE INJ 20 MG/2 ML VIAL IV ONE (11:28)
[2023-08-21] MEDS ORDERED: ASPIRIN 81 MG ECTAB PO ONE (11:30)
[2023-08-21] MEDS ORDERED: predniSONE 20 MG TAB PO STA (11:33)
--- NOTE | 2023-08-21 12:49 | Hospitalist Progress Note ---
Date of Service August 21, 2023 Assessment & Plan (1) Hypovolemic shock: (2) Anemia: (3) Acute gastrointestinal bleeding: (4) Anticoagulant long-term use: Plan: per previous hospitalist notes with addendum: Initially admitted to ICU -> transferred to PCU next day when hemodynamically stable Patient presenting from home with reports of generalized weakness and dark tarry stools. In the ED, found to be hypotensive and Hgb 3.9, INR 2.2 Recent hx of elev. INR as outpt S/p vitamin K, Kcentra, desmopressin in the ED Transfused PRBC, FFP, per ED and ICU PPI drip GI consulted - pt underwent EGD on (08/13/23) - Findings: The examined esophagus was normal. The entire examined stomach was normal. There was a large submucosal nodule likely a lipoma in the gastric body. The duodenal bulb and second portion of the duodenum were normal. Impression: - Normal esophagus. - Normal stomach. 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 - Normal duodenal bulb and second portion of the duodenum. - No specimens collected. Recommendation: - Return patient to hospital hopper for ongoing care. - EUS electively as OP to confirm the lipoma. - Monitor H/H. - If any signs of rebleeding then please obtain a bleeding scan to localize the source. 08/16 - Pt reports abd. pain./ discomfort - increased - CT abdomen w/o con ordered Discussed findings w/ radiologist. Also seen by GI on 08/16 re: recommendation for warfarin vs. further studies - per GI ok to restart warfarin - however pt hesitant and does not wish to restart the med at this time Reviewed cardiology consult note from previous admission in 07/2023 - the diagnosis of atrial fibrillation first appears in her chart in 2009 and is associated with her Coumadin therapy. The patient however is unaware of the term atrial fibrillation. I had been unable to find any definite EKG evidence of atrial fibrillation but the patient did have a documented history of recurrent stroke events and transesophageal echocardiogram performed in [place] in 2016 revealed an atrial septal aneurysm and PFO and ongoing anticoagulation for secondary prevention of stroke was recommended. It appears that she is been on Coumadin since proximally 2003. 08/21 resolved Acute CVA This AM notified by PT that pt is feeling dizzy, has facial numbness, and vision changes and reports to PT that she feels like having a stroke. Pt has hx of prior CVAs reportedly - I ordered stat CT head and came to evaluate pt immediately. She was awake, alert and answering appropriately, no facial droop, speech clear, moving all extremities and following commands. However she tells me that "she can't see half of me". And she is feeling very anxious - pt reports chronic anxiety. I had pt cover one eye at a time she continued to report that she can only see half of me (pt's right side). Talked to pt's RN and asked to call stroke alert for the pt. In addition ordered CT angio head and neck. Discussed /[facility] [place] neuro at the bedside - would not recommend thrombolytics given pt admitted with profound anemia / GI bleed. Per his exam pt was only deficient in one eye. Recommends brain MRI, ophthalmology eval and migraine cocktail. MRI and ophtho consult ordered. CT head - negative [place] head/ neck - 1. 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 2. Otherwise unremarkable CTA of the head and neck. 3. Chronic left MCA infarct. 08/18 Acute CVA 1. Moderate-sized acute right parieto-occipital infarct. 2. No acute intracranial hemorrhage or midline shift. 3. Chronic MCA infarcts with chronic white matter disease. Patient still having left-sided hemianopsia Neurologist consulted, evaluated the patient today Repeat echo performed Inquiring with neurology service regarding resuming Coumadin Blood pressure on the lower side, IV fluid boluses given to maintain good cerebral perfusion Hemoglobin stable 08/[address] head: 1. Again seen is a large subacute/evolving right parieto-occipital infarct. 2. There is no hemorrhage or midline shift. 3. Additional chronic infarcts as above. echo: no ASD, PFO cannot be assessed Doppler US LE: no DVT continue IV fluids cannot restart coumadin due to large infarct start Lipitor 40mg daily PT/OT eval SCDs for DVT Prophylaxis 08/20 requested Neuro to provide recommendations on when anticoagulation can be resumed discussed with Dr. Noel awaiting recommendations discussed with [employer] Dr. Pacheco, recommending Eliquis when ok with Neuro 08/21 per Neurology recommendations, Aspirin 81mg today then Eliquis tomorrow (5) Elevated lactic acid level: (6) UTI (urinary tract infection): Plan: Lactate 5.9 --> 2.4 Likely secondary to hypoperfusion from profound anemia and hypotension. Possible sepsis given positive UA, mild leukocytosis, WBC 11.9. Currently afebrile. Transfuse PRBC, trend lactate, IV ceftriaxone for UTI urine cultx - posit for e. coli - pansensitive, cont. ceftriaxone for now (7) COPD (chronic obstructive pulmonary disease): (8) Chronic respiratory failure with hypoxia: Plan: (+) wheezing CXR no pneumonia Prednisone 40mg Nebs BID Lasix 20mg IV one dose (9) Chronic diastolic CHF (congestive heart failure): Plan: possible component of mild volume overload Lasix 20mg IV given today (10) Paroxysmal A-fib: Plan: Rate controlled on metoprolol Anticoagulated on Coumadin -holding due to profound anemia, hypovolemic shock, GI bleeding and acute large size CVA (11) Depression, unspecified: (12) Anxiety disorder, unspecified: Plan: Psych consulted recommendations noted Sertraline daily Ativan increased to 1mg TID PRN DVT PROPHYLAXIS SCDs due to anemia, GI bleeding, acute large CVA Admission and Anticipated Discharge Date Admission Date: August 12, 2023 Subjective ff up for GI bleed, acute CVA etc seen resting in bed, comfortable states she has some dyspnea, no cough still having persistent anxiety, Klonipin not as effective no other symptoms Review of Systems Review of Systems: all noted and negative except for above Physical Exam Physical Exam: General- oriented x 3, not in distress, speaks in sentences with no effort or accessory muscle use Eyes- anicteric Neck- no JVD Lungs- (+) mild wheeze BL no crackles Heart- normal rate, regular rhythm; no murmurs Abdomen- normal bowel sounds, nondistended, soft, nontender Extremities-mild pretibial edema, no calf tenderness Neuro- alert, oriented x 3; no gross focal neurologic deficits Skin- warm & dry Results & Data Results & Data Vital Signs (Past 12 Hours) Vital Signs Temp Pulse Resp BP BP Pulse Ox O2 Del Method 08/21/23 12:34 36.6 C 85 18 122/76 95 Nasal Cannula 08/21/23 11:14 68 18 95 Nasal Cannula 08/21/23 08:26 36.5 C 96 H 18 138/80 90 Nasal Cannula 08/21/23 07:37 Nasal Cannula 08/21/23 07:02 79 20 94 Nasal Cannula 08/21/23 04:15 36.5 C 89 20 126/77 95 Nasal Cannula O2 Flow Rate 08/21/23 12:34 6.0 08/21/23 11:14 4 08/21/23 08:26 4.0 08/21/23 07:37 4 08/21/23 07:02 5 08/21/23 04:15 5 all noted and reviewed including below
[2023-08-21 17:04] LABS: Appearance Urine Clear (Clear); Bacteria Urine Automated Negative (Negative); Bilirubin Urine Negative (Negative); Blood Urine Negative (Negative); Color Urine Yellow; Epithelial Cell Urine Auto >30 /lpf (0-5); Glucose Urine UA Negative (Negative); Ketones Urine Negative (Negative); Leukocyte Esterase Urine 1+ (Negative); Nitrite Urine Negative (Negative); Protein Urine Negative (Negative); RBC Urine Automated 0-4 /hpf (0-4); Specific Gravity Urine 1.006 (1.000-1.030); Urobilinogen Urine Negative (Negative)
[2023-08-21] MEDS: LORazepam 1 MG TAB PO PRN (17:39)
[2023-08-21] MEDS: cefTRIAXone SODIUM 2,000 MG in DEXTROSE 5% 50 ML IV SCH (19:42)
[2023-08-21] MEDS: MIRTAZAPINE TAB 15 MG TAB PO SCH (19:51)
[2023-08-21] MEDS: MONTELUKAST SODIUM 10 MG TABLET PO SCH (19:52)
[2023-08-22] MEDS: traMADol HCL 50 MG TABLET PO PRN ×3 (05:53→20:58)
[2023-08-22] MEDS: LORazepam 1 MG TAB PO PRN ×3 (05:53→20:59)
[2023-08-22] MEDS: ALBUTEROL 0.083% NEBU SOLN 3 ML VIAL NEB SCH ×4 (07:48→19:00)
[2023-08-22] MEDS: FLUTICASONE/VILANTEROL 100/25MCG 14 PUFFS/INHALER INH SCH (08:47)
[2023-08-22] MEDS: UMECLIDINIUM BROMIDE 62.5MCG/BLISTER 7 PUFFS/INHALER INH SCH (08:47)
[2023-08-22] MEDS: busPIRone 5 MG TAB PO SCH (08:48)
[2023-08-22] MEDS: SERTRALINE HCL 50 MG TABLET PO SCH (08:49)
[2023-08-22] MEDS: METOPROLOL SUCC 25MG EXT REL TAB PO SCH (08:49)
[2023-08-22] MEDS: MICONAZOLE NITRATE 2% CR 30 GM TUBE EXT SCH ×2 (08:50→21:58)
[2023-08-22] MEDS: ADVANCED PROBIOTIC 1250 MG CAPSULE PO SCH (08:50)
[2023-08-22] MEDS: OXYBUTYNIN CHLORIDE XL 5 MG TABCR PO SCH (08:50)
[2023-08-22] MEDS: FUROSEMIDE 40 MG TAB PO SCH ×2 (10:15→20:55)
--- NOTE | 2023-08-22 11:46 | CT Scan Report ---
CT SCAN OF THE BRAIN WITHOUT IV CONTRAST CLINICAL HISTORY: Follow-up stroke. COMPARISON STUDY: Prior CT scans of the brain, most recently dated 08/19/2023 TECHNIQUE: Unenhanced axial CT scan of the brain is performed from the vertex to the skull base. A do se lowering technique was utilized adhering to the principles of ALARA. CT DOSE: 703.85 mGy.cm FINDINGS: Brain parenchyma: A subacute/evolving right parieto-occipital infarct is again noted. There is meanwh ile surrounding edema. No midline shift is noted. No hemorrhage is identified. Additional chronic inf arcts are again seen in the right frontal lobe, the right temporal lobe, and the left MCA territory. There is age-related involutional change noting mild subcortical and periventricular microangiopathic disease. No extra-axial fluid collection is seen. Ventricles, sulci, cisterns: Prominent secondary to involutional change. Intracranial vasculature: There is atherosclerotic calcification of the cavernous carotid arteries. Calvarium: Unremarkable. Sinuses and mastoids: The visualized paranasal sinuses are clear. The mastoid air cells are well pneu matized. Orbits: The bony orbits are grossly intact. There are bilateral ocular lens implants. IMPRESSION: 1. Continued evolution of a subacute right parieto-occipital lobe infarct. 2. There is no hemorrhage or midline shift. No new foci of acute ischemia are suspected. 3. Additional chronic infarcts as above. ACT 112: Negative or not required by law. Electronically signed by: Donavon Littlejohn M.D. 08/22/2023 11:43 AM
--- NOTE | 2023-08-22 11:49 | Hospitalist Progress Note ---
Date of Service August 22, 2023 Assessment & Plan (1) Hypovolemic shock: (2) Anemia: (3) Acute gastrointestinal bleeding: (4) Anticoagulant long-term use: Plan: per previous hospitalist notes with addendum: Initially admitted to ICU -> transferred to PCU next day when hemodynamically stable Patient presenting from home with reports of generalized weakness and dark tarry stools. In the ED, found to be hypotensive and Hgb 3.9, INR 2.2 Recent hx of elev. INR as outpt S/p vitamin K, Kcentra, desmopressin in the ED Transfused PRBC, FFP, per ED and ICU PPI drip GI consulted - pt underwent EGD on (08/13/23) - Findings: The examined esophagus was normal. The entire examined stomach was normal. There was a large submucosal nodule likely a lipoma in the gastric body. The duodenal bulb and second portion of the duodenum were normal. Impression: - Normal esophagus. - Normal stomach. 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 - Normal duodenal bulb and second portion of the duodenum. - No specimens collected. Recommendation: - Return patient to hospital hopper for ongoing care. - EUS electively as OP to confirm the lipoma. - Monitor H/H. - If any signs of rebleeding then please obtain a bleeding scan to localize the source. 08/16 - Pt reports abd. pain./ discomfort - increased - CT abdomen w/o con ordered Discussed findings w/ radiologist. Also seen by GI on 08/16 re: recommendation for warfarin vs. further studies - per GI ok to restart warfarin - however pt hesitant and does not wish to restart the med at this time Reviewed cardiology consult note from previous admission in 07/2023 - the diagnosis of atrial fibrillation first appears in her chart in 2009 and is associated with her Coumadin therapy. The patient however is unaware of the term atrial fibrillation. I had been unable to find any definite EKG evidence of atrial fibrillation but the patient did have a documented history of recurrent stroke events and transesophageal echocardiogram performed in [place] in 2016 revealed an atrial septal aneurysm and PFO and ongoing anticoagulation for secondary prevention of stroke was recommended. It appears that she is been on Coumadin since proximally 2003. 08/22 resolved Acute CVA This AM notified by PT that pt is feeling dizzy, has facial numbness, and vision changes and reports to PT that she feels like having a stroke. Pt has hx of prior CVAs reportedly - I ordered stat CT head and came to evaluate pt immediately. She was awake, alert and answering appropriately, no facial droop, speech clear, moving all extremities and following commands. However she tells me that "she can't see half of me". And she is feeling very anxious - pt reports chronic anxiety. I had pt cover one eye at a time she continued to report that she can only see half of me (pt's right side). Talked to pt's RN and asked to call stroke alert for the pt. In addition ordered CT angio head and neck. Discussed /[facility] [place] neuro at the bedside - would not recommend thrombolytics given pt admitted with profound anemia / GI bleed. Per his exam pt was only deficient in one eye. Recommends brain MRI, ophthalmology eval and migraine cocktail. MRI and ophtho consult ordered. CT head - negative [place] head/ neck - 1. 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 2. Otherwise unremarkable CTA of the head and neck. 3. Chronic left MCA infarct. 08/18 Acute CVA 1. Moderate-sized acute right parieto-occipital infarct. 2. No acute intracranial hemorrhage or midline shift. 3. Chronic MCA infarcts with chronic white matter disease. Patient still having left-sided hemianopsia Neurologist consulted, evaluated the patient today Repeat echo performed Inquiring with neurology service regarding resuming Coumadin Blood pressure on the lower side, IV fluid boluses given to maintain good cerebral perfusion Hemoglobin stable 08/[address] head: 1. Again seen is a large subacute/evolving right parieto-occipital infarct. 2. There is no hemorrhage or midline shift. 3. Additional chronic infarcts as above. echo: no ASD, PFO cannot be assessed Doppler US LE: no DVT continue IV fluids cannot restart coumadin due to large infarct start Lipitor 40mg daily PT/OT eval SCDs for DVT Prophylaxis 08/20 requested Neuro to provide recommendations on when anticoagulation can be resumed discussed with Dr. Noel awaiting recommendations discussed with Architecture Consultant Dr. Pacheco, recommending Eliquis when ok with Neuro 08/21 per Neurology recommendations, Aspirin 81mg today then Eliquis tomorrow 08/[address] head: no signs of hemorrhage will start Eliquis 5mg BID monitor closely (5) Elevated lactic acid level: (6) UTI (urinary tract infection): Plan: Lactate 5.9 --> 2.4 Likely secondary to hypoperfusion from profound anemia and hypotension. Possible sepsis given positive UA, mild leukocytosis, WBC 11.9. Currently afebrile. Transfuse PRBC, trend lactate, IV ceftriaxone for UTI urine cultx - posit for e. coli - pansensitive completed course of Ceftriaxone IV (7) COPD (chronic obstructive pulmonary disease): (8) Chronic respiratory failure with hypoxia: Plan: (+) wheezing CXR no pneumonia Prednisone 40mg Nebs BID Lasix 20mg IV one dose 08/22 wheezing resolved continue nebs usual Lasix 40mg BID continued (9) Chronic diastolic CHF (congestive heart failure): Plan: possible component of mild volume overload Lasix 20mg IV given 08/22 usual Lasix 40mg BID continued (10) Paroxysmal A-fib: Plan: Rate controlled on metoprolol Anticoagulated on Coumadin -held due to profound anemia, hypovolemic shock, GI bleeding and acute CVA 08/22 per discussion with Architecture Consultant Dr. Pacheco, will start Eliquis 5mg BID (11) Depression, unspecified: (12) Anxiety disorder, unspecified: Plan: Psych consulted recommendations noted Sertraline daily Ativan increased to 1mg TID PRN DVT PROPHYLAXIS now on Eliquis Admission and Anticipated Discharge Date Admission Date: August 12, 2023 Subjective ff up for GI bleed, acute cva, etc seen resting in bed, comfortable states she feels ok overall breathing is better no new neuro symptoms anxiety improving no melena, hematochezia no chest pain, dyspnea, palpitations, dizziness Review of Systems Review of Systems: all noted and negative except for above Physical Exam Physical Exam: General- oriented x 3, not in distress, speaks in sentences with no effort or accessory muscle use Eyes- anicteric Neck- no JVD Lungs- mild rales at the bases no wheezing Heart- normal rate, regular rhythm; no murmurs Abdomen- normal bowel sounds, nondistended, soft, no tenderness Extremities- mild pretibial edema, no calf tenderness Neuro- alert, oriented x 3; no gross focal neurologic deficits Skin- warm & dry Results & Data Results & Data Vital Signs (Past 12 Hours) Vital Signs Temp Pulse Pulse Resp BP Pulse Ox O2 Del Method 08/22/23 09:04 Nasal Cannula 08/22/23 08:38 36.6 C 91 H 22 126/82 95 Nasal Cannula 08/22/23 07:49 85 20 94 Nasal Cannula 08/22/23 03:12 36.4 C L 77 18 131/76 99 Nasal Cannula 08/22/23 00:58 79 O2 Flow Rate 08/22/23 09:04 5 08/22/23 08:38 6.0 08/22/23 07:49 5 08/22/23 03:12 6 08/22/23 00:58 all noted and reviewed including below
[2023-08-22] MEDS: APIXABAN 5 MG TABLET PO SCH ×2 (13:30→20:54)
[2023-08-22] MEDS: busPIRone 15 MG TAB PO SCH (20:54)
[2023-08-22] MEDS: MONTELUKAST SODIUM 10 MG TABLET PO SCH (20:55)
[2023-08-22] MEDS: MIRTAZAPINE TAB 15 MG TAB PO SCH (21:55)
[2023-08-22] MEDS ORDERED: ALBUMIN 25% 25 GM/100 ML VIAL IV ONE (23:17)
[2023-08-23 00:04] LABS: Base Excess VBG 9.9 mEq/L; HCO3 VBG 37 mmol/L; Oxygen Saturation VBG 88.8 %; PCO2 VBG 58 mmHg (38-50); PO2 VBG 54 mmHg; pH VBG 7.41 (7.36-7.41)
[2023-08-23] MEDS: MAGNESIUM SULFATE / D5W 1 GM/100 ML BAG IV SCH ×2 (01:47→03:14)
[2023-08-23] MEDS: ALBUTEROL HFA 8 GM INHALER INH PRN (05:22)
[2023-08-23] MEDS: ALBUTEROL 0.083% NEBU SOLN 3 ML VIAL NEB SCH ×4 (07:12→19:03)
--- NOTE | 2023-08-23 07:24 | XRay Report ---
XR chest 1V portable HISTORY: 63 years-old Female low o2 acute hypoxia COMPARISON: 08/20/2023 TECHNIQUE: AP view of the chest FINDINGS: Cardiac silhouette is enlarged. No pneumothorax, pleural effusion, airspace consolidation or pulmonar y edema. Lungs are mildly hypoinflated. Bones of the chest appear grossly intact. IMPRESSION: Hypoinflation without acute process. ACT 112: Negative or not required by law. The above report was generated using voice recognition software. It may contain grammatical, syntax o r spelling errors. Electronically signed by: Alvarez Peters M.D. 08/23/2023 7:23 AM
[2023-08-23] MEDS: OXYBUTYNIN CHLORIDE XL 5 MG TABCR PO SCH (08:50)
[2023-08-23] MEDS: ADVANCED PROBIOTIC 1250 MG CAPSULE PO SCH ×2 (08:50→08:59)
[2023-08-23] MEDS: UMECLIDINIUM BROMIDE 62.5MCG/BLISTER 7 PUFFS/INHALER INH SCH (08:50)
[2023-08-23] MEDS: FLUTICASONE/VILANTEROL 100/25MCG 14 PUFFS/INHALER INH SCH (08:50)
[2023-08-23] MEDS: APIXABAN 5 MG TABLET PO SCH ×3 (08:51→20:36)
[2023-08-23] MEDS: SERTRALINE HCL 50 MG TABLET PO SCH (08:51)
[2023-08-23] MEDS: METOPROLOL SUCC 25MG EXT REL TAB PO SCH (08:51)
[2023-08-23] MEDS: FUROSEMIDE 40 MG TAB PO SCH (08:51)
[2023-08-23] MEDS: MICONAZOLE NITRATE 2% CR 30 GM TUBE EXT SCH ×2 (08:51→20:37)
[2023-08-23] MEDS: LORazepam 1 MG TAB PO PRN ×2 (08:57→14:37)
[2023-08-23] MEDS: traMADol HCL 50 MG TABLET PO PRN (08:57)
[2023-08-23 09:39] LABS: Basophils # (auto) 0.03 K/uL (0.00-0.20); Basophils % (auto) 0.4 %; Eosinophils # (auto) 0.07 K/uL (0.00-0.50); Hematocrit (blood only) 27.8 % (37.0-47.0); Hemoglobin 8.2 g/dl (12.0-16.0); Immature Granulocytes # (auto) 0.04 K/uL (0.01-0.20); Immature Granulocytes % (auto) 0.6 %; Lymphocytes # (auto) 1.38 K/uL (1.20-3.40); Lymphocytes % (auto) 19.1 %; Mean Corpuscular Hemoglobin 26.5 pg (25.0-34.0); Mean Corpuscular Hgb Conc 29.5 g/dL (32.0-36.0); Mean Platelet Volume 8.4 fL (9.4-12.4); Monocytes # (auto) 0.66 K/uL (0.11-0.59); Monocytes % (auto) 9.2 %; Neutrophils # (auto) 5.03 K/uL (1.40-6.50); Neutrophils % (auto) 69.7 %; Platelet Count 533 K/uL (130-400); RDW Coefficient of Variation 17.2 % (11.5-14.5); Red Blood Count 3.09 M/uL (4.20-5.40); White Blood Count 7.21 K/ul (4.8-10.8)
[2023-08-23 09:59] LABS: BUN Creatinine Ratio 12.7 (10-20); Calcium 7.8 mg/dl (8.6-10.3); Creatinine Clr Calc Pharmacy 112.4 ml/min; Est GFR (African American) 105.1 ml/min; Est GFR (Non-African American) 90.7 ml/min; Potassium 3.2 mmol/L (3.5-5.1)
[2023-08-23] MEDS: busPIRone 15 MG TAB PO SCH (10:15)
[2023-08-23] MEDS ORDERED: POTASSIUM CHLORIDE CRTAB 20 MEQ TABCR PO STA (10:37)
[2023-08-23] MEDS ORDERED: predniSONE 20 MG TAB PO STA (14:13)
--- NOTE | 2023-08-23 15:49 | Hospitalist Progress Note ---
Date of Service August 23, 2023 Assessment & Plan (1) Hypovolemic shock: (2) Anemia: (3) Acute gastrointestinal bleeding: (4) Anticoagulant long-term use: Plan: per previous hospitalist notes with addendum: Initially admitted to ICU -> transferred to PCU next day when hemodynamically stable Patient presenting from home with reports of generalized weakness and dark tarry stools. In the ED, found to be hypotensive and Hgb 3.9, INR 2.2 Recent hx of elev. INR as outpt S/p vitamin K, Kcentra, desmopressin in the ED Transfused PRBC, FFP, per ED and ICU PPI drip GI consulted - pt underwent EGD on (08/13/23) - Findings: The examined esophagus was normal. The entire examined stomach was normal. There was a large submucosal nodule likely a lipoma in the gastric body. The duodenal bulb and second portion of the duodenum were normal. Impression: - Normal esophagus. - Normal stomach. 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 - Normal duodenal bulb and second portion of the duodenum. - No specimens collected. Recommendation: - Return patient to hospital hopper for ongoing care. - EUS electively as OP to confirm the lipoma. - Monitor H/H. - If any signs of rebleeding then please obtain a bleeding scan to localize the source. 08/16 - Pt reports abd. pain./ discomfort - increased - CT abdomen w/o con ordered Discussed findings w/ radiologist. Also seen by GI on 08/16 re: recommendation for warfarin vs. further studies - per GI ok to restart warfarin - however pt hesitant and does not wish to restart the med at this time Reviewed cardiology consult note from previous admission in 07/2023 - the diagnosis of atrial fibrillation first appears in her chart in 2009 and is associated with her Coumadin therapy. The patient however is unaware of the term atrial fibrillation. I had been unable to find any definite EKG evidence of atrial fibrillation but the patient did have a documented history of recurrent stroke events and transesophageal echocardiogram performed in [place] in 2016 revealed an atrial septal aneurysm and PFO and ongoing anticoagulation for secondary prevention of stroke was recommended. It appears that she is been on Coumadin since proximally 2003. 08/23 resolved Acute CVA This AM notified by PT that pt is feeling dizzy, has facial numbness, and vision changes and reports to PT that she feels like having a stroke. Pt has hx of prior CVAs reportedly - I ordered stat CT head and came to evaluate pt immediately. She was awake, alert and answering appropriately, no facial droop, speech clear, moving all extremities and following commands. However she tells me that "she can't see half of me". And she is feeling very anxious - pt reports chronic anxiety. I had pt cover one eye at a time she continued to report that she can only see half of me (pt's right side). Talked to pt's RN and asked to call stroke alert for the pt. In addition ordered CT angio head and neck. Discussed /[facility] [place] stroke neuro at the bedside - would not recommend thrombolytics given pt admitted with profound anemia / GI bleed. Per his exam pt was only deficient in one eye. Recommends brain MRI, ophthalmology eval and migraine cocktail. MRI and ophtho consult ordered. CT head - negative [place] head/ neck - 1. 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 2. Otherwise unremarkable CTA of the head and neck. 3. Chronic left MCA infarct. 08/18 Acute CVA 1. Moderate-sized acute right parieto-occipital infarct. 2. No acute intracranial hemorrhage or midline shift. 3. Chronic MCA infarcts with chronic white matter disease. Patient still having left-sided hemianopsia Neurologist consulted, evaluated the patient today Repeat echo performed Inquiring with neurology service regarding resuming Coumadin Blood pressure on the lower side, IV fluid boluses given to maintain good cerebral perfusion Hemoglobin stable 08/[address] head: 1. Again seen is a large subacute/evolving right parieto-occipital infarct. 2. There is no hemorrhage or midline shift. 3. Additional chronic infarcts as above. echo: no ASD, PFO cannot be assessed Doppler US LE: no DVT continue IV fluids cannot restart coumadin due to large infarct start Lipitor 40mg daily PT/OT eval SCDs for DVT Prophylaxis 08/20 requested Neuro to provide recommendations on when anticoagulation can be resumed discussed with Dr. Noel awaiting recommendations discussed with [employer] Dr. Pacheco, recommending Eliquis when ok with Neuro 08/21 per Neurology recommendations, Aspirin 81mg today then Eliquis tomorrow 08/[address] head: no signs of hemorrhage will start Eliquis 5mg BID monitor closely 08/23 Stable neurologically Continue Eliquis 5 mg twice daily Hemoglobin stable Monitor closely (5) Elevated lactic acid level: (6) UTI (urinary tract infection): Plan: Lactate 5.9 --> 2.4 Likely secondary to hypoperfusion from profound anemia and hypotension. Possible sepsis given positive UA, mild leukocytosis, WBC 11.9. Currently afebrile. Transfuse PRBC, trend lactate, IV ceftriaxone for UTI urine cultx - posit for e. coli - pansensitive completed course of Ceftriaxone IV (7) COPD (chronic obstructive pulmonary disease): (8) Chronic respiratory failure with hypoxia: Plan: (+) wheezing CXR no pneumonia Prednisone 40mg Nebs BID Lasix 20mg IV one dose 08/23 Positive wheezing O2 requirement up to 6 L Start prednisone 40 mg daily Lasix 20 mg IV Encouraged to use incentive spirometer, flutter valve (9) Chronic diastolic CHF (congestive heart failure): Plan: possible component of mild volume overload Lasix 20mg IV given 08/23 Currently on Lasix 20 g IV twice daily (10) Paroxysmal A-fib: Plan: Rate controlled on metoprolol Anticoagulated on Coumadin -held due to profound anemia, hypovolemic shock, GI bleeding and acute CVA 08/23 per discussion with [employer] Dr. Pacheco, will start Eliquis 5mg BID (11) Depression, unspecified: (12) Anxiety disorder, unspecified: Plan: Psych consulted recommendations noted Sertraline daily Ativan increased to 1mg TID PRN DVT PROPHYLAXIS now on Eliquis Admission and Anticipated Discharge Date Admission Date: August 12, 2023 Subjective Follow-up for GI bleed, acute CVA, etc. Seen resting in bed, comfortable, not in distress On 5 L of oxygen States she feels okay today overall Denies shortness of breath, chest pain, palpitations No any other new symptom Review of Systems Review of Systems: all noted and negative except for above Physical Exam Physical Exam: General- oriented x 3, not in distress, speaks in sentences with no effort or accessory muscle use Eyes- anicteric Neck- no JVD Lungs-mild intermittent scattered wheezing bilaterally With some crackles Heart- normal rate, regular rhythm; no murmurs Abdomen- normal bowel sounds, nondistended, soft, nontender Extremities- mild pretibial edema, no calf tenderness Neuro- alert, oriented x 2; no gross focal neurologic deficits Skin- warm & dry Results & Data Results & Data Vital Signs (Past 12 Hours) Vital Signs Temp Pulse Pulse Resp BP Pulse Ox O2 Del Method 08/23/23 15:40 36.7 C 89 18 119/68 93 Nasal Cannula 08/23/23 14:05 86 18 90 Nasal Cannula 08/23/23 12:46 36.9 C 89 18 91/54 L 95 Nasal Cannula 08/23/23 11:26 86 20 90 Nasal Cannula 08/23/23 09:24 Nasal Cannula 08/23/23 07:59 36.9 C 91 H 20 110/66 91 Nasal Cannula 08/23/23 07:40 87 08/23/23 07:19 86 20 91 Nasal Cannula 08/23/23 05:23 89 18 92 Nasal Cannula O2 Flow Rate 08/23/23 15:40 5 08/23/23 14:05 5 08/23/23 12:46 5 08/23/23 11:26 5 08/23/23 09:24 5 08/23/23 07:59 6 08/23/23 07:40 08/23/23 07:19 6 08/23/23 05:23 6 all noted and reviewed including below
[2023-08-23] MEDS: FUROSEMIDE 20 MG TAB PO SCH (16:19)
[2023-08-23] MEDS: MONTELUKAST SODIUM 10 MG TABLET PO SCH ×2 (20:00→20:36)
[2023-08-23] MEDS: busPIRone 5 MG TAB PO SCH ×2 (20:00→20:36)
[2023-08-23] MEDS: MIRTAZAPINE TAB 15 MG TAB PO SCH ×2 (20:00→20:36)
[2023-08-23] MEDS ORDERED: NALOXONE HCL 0.4 MG/1 ML VIAL/CARP IV STA (20:56)
--- NOTE | 2023-08-23 21:16 | Communication Note ---
Date of Service: August 23, 2023 8:50 PM Patient lethargic and difficult to arouse as per RN BSG 170s. SBP 120s O2 sats 93 on 6 L AP Encephalopathy History OHS Narcotic and multiple neuropsychotropic meds contributory BiPAP now check ABG Narcan trial (patient received tramadol in a.m.) Hold tramadol and neuropsychotropic medications for now CT head if without improvement given NOAC rx No response to Narcan as per RN. Patient woke up after ABG drawn. Patient with headache symptoms not worsened at all as per RN.
[2023-08-23 21:23] LABS: Base Excess ABG 10.6 mEq/L (-9-1.8); HCO3 ABG 36 mmol/L (19-24); Oxygen Saturation ABG 91.5 % (90-95); PCO2 ABG 51 mmHg (35-46); PO2 ABG 60 mmHg (80-95); pH ABG 7.46 (7.35-7.45)
[2023-08-23 21:24] LABS: Allen Test Pos (Pos)
[2023-08-24] MEDS: ACETAMINOPHEN W/CODEINE #3 1 TAB PO PRN ×2 (04:42→13:40)
[2023-08-24 06:22] LABS: Basophils # (auto) 0.01 K/uL (0.00-0.20); Basophils % (auto) 0.2 %; Eosinophils # (auto) 0.01 K/uL (0.00-0.50); Eosinophils % (auto) 0.2 %; Hematocrit (blood only) 28.7 % (37.0-47.0); Hemoglobin 8.5 g/dl (12.0-16.0); Immature Granulocytes # (auto) 0.03 K/uL (0.01-0.20); Immature Granulocytes % (auto) 0.5 %; Lymphocytes # (auto) 1.51 K/uL (1.20-3.40); Lymphocytes % (auto) 24.2 %; Mean Corpuscular Hemoglobin 26.2 pg (25.0-34.0); Mean Corpuscular Hgb Conc 29.6 g/dL (32.0-36.0); Mean Corpuscular Volume 88.6 fL (80.0-100.0); Mean Platelet Volume 8.8 fL (9.4-12.4); Monocytes # (auto) 0.51 K/uL (0.11-0.59); Monocytes % (auto) 8.2 %; Neutrophils # (auto) 4.17 K/uL (1.40-6.50); Neutrophils % (auto) 66.7 %; Platelet Count 565 K/uL (130-400); RDW Coefficient of Variation 17.2 % (11.5-14.5); RDW Standard Deviation 55.7 fL (36.4-46.3); Red Blood Count 3.24 M/uL (4.20-5.40); White Blood Count 6.24 K/ul (4.8-10.8)
[2023-08-24 06:46] LABS: Calcium 8.3 mg/dl (8.6-10.3); Creatinine Clr Calc Pharmacy 112.6 ml/min; Est GFR (African American) 106.9 ml/min; Est GFR (Non-African American) 92.2 ml/min; Potassium 3.5 mmol/L (3.5-5.1)
[2023-08-24] MEDS: ALBUTEROL 0.083% NEBU SOLN 3 ML VIAL NEB SCH ×5 (06:56→20:11)
[2023-08-24] MEDS: UMECLIDINIUM BROMIDE 62.5MCG/BLISTER 7 PUFFS/INHALER INH SCH (07:54)
[2023-08-24] MEDS: LORazepam 1 MG TAB PO PRN ×2 (07:54→16:00)
[2023-08-24] MEDS: FLUTICASONE/VILANTEROL 100/25MCG 14 PUFFS/INHALER INH SCH (07:54)
[2023-08-24] MEDS: SERTRALINE HCL 50 MG TABLET PO SCH (07:55)
[2023-08-24] MEDS: METOPROLOL SUCC 25MG EXT REL TAB PO SCH (07:55)
[2023-08-24] MEDS: OXYBUTYNIN CHLORIDE XL 5 MG TABCR PO SCH (07:55)
[2023-08-24] MEDS: busPIRone 5 MG TAB PO SCH ×2 (07:55→21:34)
[2023-08-24] MEDS: MICONAZOLE NITRATE 2% CR 30 GM TUBE EXT SCH ×2 (07:56→21:39)
[2023-08-24] MEDS: ADVANCED PROBIOTIC 1250 MG CAPSULE PO SCH (07:56)
[2023-08-24] MEDS: FUROSEMIDE 20 MG TAB PO SCH ×2 (07:56→16:01)
--- NOTE | 2023-08-24 08:03 | XRay Report ---
XR chest 1V portable HISTORY: 63 years-old Female wheezing, r/o CHF acute wheezing with shortness of breath COMPARISON: 08/22/2023 TECHNIQUE: AP view of the chest FINDINGS: Cardiac silhouette is enlarged. Mild chronic interstitial coarsening. No pneumothorax, pleural effusi on or overt pulmonary edema. Bones appear grossly intact. IMPRESSION: No acute process. ACT 112: Negative or not required by law. The above report was generated using voice recognition software. It may contain grammatical, syntax o r spelling errors. Electronically signed by: Alvarez Peters M.D. 08/24/2023 8:01 AM
[2023-08-24] MEDS ORDERED: predniSONE 20 MG TAB PO STA (15:40)
--- NOTE | 2023-08-24 15:49 | Hospitalist Progress Note ---
Date of Service August 24, 2023 Assessment & Plan (1) Hypovolemic shock: (2) Anemia: (3) Acute gastrointestinal bleeding: (4) Anticoagulant long-term use: Plan: per previous hospitalist notes with addendum: Initially admitted to ICU -> transferred to PCU next day when hemodynamically stable Patient presenting from home with reports of generalized weakness and dark tarry stools. In the ED, found to be hypotensive and Hgb 3.9, INR 2.2 Recent hx of elev. INR as outpt S/p vitamin K, Kcentra, desmopressin in the ED Transfused PRBC, FFP, per ED and ICU PPI drip GI consulted - pt underwent EGD on (08/13/23) - Findings: The examined esophagus was normal. The entire examined stomach was normal. There was a large submucosal nodule likely a lipoma in the gastric body. The duodenal bulb and second portion of the duodenum were normal. Impression: - Normal esophagus. - Normal stomach. 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 - Normal duodenal bulb and second portion of the duodenum. - No specimens collected. Recommendation: - Return patient to hospital hopper for ongoing care. - EUS electively as OP to confirm the lipoma. - Monitor H/H. - If any signs of rebleeding then please obtain a bleeding scan to localize the source. 08/16 - Pt reports abd. pain./ discomfort - increased - CT abdomen w/o con ordered Discussed findings w/ radiologist. Also seen by GI on 08/16 re: recommendation for warfarin vs. further studies - per GI ok to restart warfarin - however pt hesitant and does not wish to restart the med at this time Reviewed cardiology consult note from previous admission in 07/2023 - the diagnosis of atrial fibrillation first appears in her chart in 2009 and is associated with her Coumadin therapy. The patient however is unaware of the term atrial fibrillation. I had been unable to find any definite EKG evidence of atrial fibrillation but the patient did have a documented history of recurrent stroke events and transesophageal echocardiogram performed in [place] in 2016 revealed an atrial septal aneurysm and PFO and ongoing anticoagulation for secondary prevention of stroke was recommended. It appears that she is been on Coumadin since proximally 2003. 08/24 GI bleed resolved Acute CVA Right parieto-occipital infarct Left homonymous hemianopsia next This AM notified by PT that pt is feeling dizzy, has facial numbness, and vision changes and reports to PT that she feels like having a stroke. Pt has hx of prior CVAs reportedly - I ordered stat CT head and came to evaluate pt immediately. She was awake, alert and answering appropriately, no facial droop, speech clear, moving all extremities and following commands. However she tells me that "she can't see half of me". And she is feeling very anxious - pt reports chronic anxiety. I had pt cover one eye at a time she continued to report that she can only see half of me (pt's right side). Talked to pt's RN and asked to call stroke alert for the pt. In addition ordered CT angio head and neck. Discussed /[facility] [place] stroke neuro at the bedside - would not recommend thrombolytics given pt admitted with profound anemia / GI bleed. Per his exam pt was only deficient in one eye. Recommends brain MRI, ophthalmology eval and migraine cocktail. MRI and ophtho consult ordered. CT head - negative EMERSON head/ neck - 1. 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 2. Otherwise unremarkable CTA of the head and neck. 3. Chronic left MCA infarct. Brain MRI: 1. Moderate-sized acute right parieto-occipital infarct. 2. No acute intracranial hemorrhage or midline shift. 3. Chronic MCA infarcts with chronic white matter disease. echo: no ASD, PFO cannot be assessed Doppler US LE: no DVT Neurologist consulted Anticoagulation held due to moderate-sized stroke Discussed at length with Dr. 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 twice daily initiated August 22, 202308/24 remains stable neurologically Continue Eliquis 5 mg twice daily Hemoglobin stable Monitor closely (5) UTI (urinary tract infection): Plan: Lactate 5.9 --> 2.4 Likely secondary to hypoperfusion from profound anemia and hypotension. Possible sepsis given positive UA, mild leukocytosis, WBC 11.9. Currently afebrile. urine cultx - posit for e. coli - pansensitive completed course of Ceftriaxone IV (6) COPD (chronic obstructive pulmonary disease): (7) Chronic respiratory failure with hypoxia: Plan: (+) wheezing O2 requirement increased from 4 L which is her baseline to 6 L CXR no pneumonia Given prednisone, nebs, Lasix resumed 08/24 Wheezing improving Currently at 5 L of nasal cannula Received 3 days of prednisone 40 mg daily, taper to 30 mg x 2 days, 20 mg x 2 days, 10 mg x 2 days then stop Encouraged to use incentive spirometer, flutter valve (8) Chronic diastolic CHF (congestive heart failure): Plan: possible component of mild volume overload Usually on Lasix 40 mg p.o. twice daily Required IV Lasix Patient diuresed well, approaching euvolemia currently on Lasix 20 mg p.o. twice daily in light of marginal blood pressure (9) Paroxysmal A-fib: Plan: Rate controlled on metoprolol Anticoagulated on Coumadin -held due to profound anemia, hypovolemic shock, GI bleeding secondary to supratherapeutic INR 10/9 per discussion with Professor Of Kinesiology Dr. Pacheco, will start Eliquis 5mg BID (10) Depression, unspecified: (11) Anxiety disorder, unspecified: Plan: Psych consulted recommendations noted Sertraline daily Ativan increased to 1mg TID PRN Anxiety improving DVT PROPHYLAXIS now on Eliquis Disposition [facility] once back to baseline 4 L of oxygen Admission and Anticipated Discharge Date Admission Date: August 12, 2023 Subjective Follow-up for GI bleed, hypotension, subsequent acute CVA, etc. Events overnight noted Patient was apparently difficult to wake up, ABG okay, patient woke up during ABG draw Seen resting in bed, watching TV, not in distress, comfortable States she feels improved today compared to yesterday Breathing is okay, denies cough, sputum production, shortness of breath No chest pain, palpitations, dizziness No other new neurologic symptoms Review of Systems Review of Systems: all noted and negative except for above Physical Exam Physical Exam: General- oriented x 3, not in distress, speaks in sentences with no effort or accessory muscle use Eyes- anicteric Neck- no JVD Lungs-faint wheeze bilateral bases Heart- normal rate, regular rhythm; no murmurs Abdomen- normal bowel sounds, nondistended, soft, nontender Extremities-mild pretibial edema, no calf tenderness Neuro- alert, oriented x 3; no gross focal neurologic deficits Skin- warm & dry Results & Data Results & Data Vital Signs (Past 12 Hours) Vital Signs Temp Pulse Pulse Resp BP BP Pulse Ox 08/24/23 15:03 36.6 C 83 18 107/62 91 08/24/23 11:28 77 20 144/97 H 100 08/24/23 11:00 82 16 93 08/24/23 09:14 08/24/23 08:01 96 H 20 119/75 92 08/24/23 06:59 77 08/24/23 06:56 82 18 96 O2 Del Method O2 Flow Rate 08/24/23 15:03 Nasal Cannula 4.0 08/24/23 11:28 Nasal Cannula 6.0 08/24/23 11:00 Nasal Cannula 5 08/24/23 09:14 Nasal Cannula 6 08/24/23 08:01 Nasal Cannula 6 08/24/23 06:59 08/24/23 06:56 Nasal Cannula 6 all noted and reviewed including below
--- NOTE | 2023-08-24 16:13 | Communication Note ---
Date of Service: August 24, 2023 interim progress reviewed as follow up to initial consultation by Dr. Sylvester. Patient had period of decreased responsiveness last pm. Unclear etiology, had been tolerating Ativan increase. Per liaison was alert, cooperative, still having anxiety due to being hospitalized. Has since resumed. If recurs would rec. decrease dose back to 0.5 mg.
[2023-08-24] MEDS: APIXABAN 5 MG TABLET PO SCH (21:33)
[2023-08-24] MEDS: MONTELUKAST SODIUM 10 MG TABLET PO SCH (21:35)
[2023-08-24] MEDS: MIRTAZAPINE TAB 15 MG TAB PO SCH (21:38)
[2023-08-25] MEDS: ACETAMINOPHEN W/CODEINE #3 1 TAB PO PRN (04:28)
[2023-08-25 06:45] LABS: Basophils # (auto) 0.01 K/uL (0.00-0.20); Basophils % (auto) 0.1 %; Hematocrit (blood only) 28.9 % (37.0-47.0); Hemoglobin 8.7 g/dl (12.0-16.0); Immature Granulocytes # (auto) 0.05 K/uL (0.01-0.20); Immature Granulocytes % (auto) 0.5 %; Lymphocytes # (auto) 1.36 K/uL (1.20-3.40); Lymphocytes % (auto) 14.5 %; Mean Corpuscular Hgb Conc 30.1 g/dL (32.0-36.0); Mean Corpuscular Volume 86.5 fL (80.0-100.0); Mean Platelet Volume 8.6 fL (9.4-12.4); Monocytes # (auto) 0.88 K/uL (0.11-0.59); Monocytes % (auto) 9.4 %; Neutrophils # (auto) 7.05 K/uL (1.40-6.50); Neutrophils % (auto) 75.5 %; Platelet Count 590 K/uL (130-400); RDW Coefficient of Variation 17.2 % (11.5-14.5); RDW Standard Deviation 54.7 fL (36.4-46.3); Red Blood Count 3.34 M/uL (4.20-5.40); White Blood Count 9.35 K/ul (4.8-10.8)
[2023-08-25] MEDS: ALBUTEROL 0.083% NEBU SOLN 3 ML VIAL NEB SCH ×2 (06:50→10:22)
[2023-08-25 07:32] LABS: Calcium 8.7 mg/dl (8.6-10.3); Potassium 3.9 mmol/L (3.5-5.1)
[2023-08-25 07:38] LABS: BUN Creatinine Ratio 21.7 (10-20); Creatinine Clr Calc Pharmacy 115.5 ml/min; Est GFR (African American) 107.4 ml/min; Est GFR (Non-African American) 92.6 ml/min
[2023-08-25] MEDS: LORazepam 1 MG TAB PO PRN (08:03)
[2023-08-25] MEDS: FLUTICASONE/VILANTEROL 100/25MCG 14 PUFFS/INHALER INH SCH (08:04)
[2023-08-25] MEDS: UMECLIDINIUM BROMIDE 62.5MCG/BLISTER 7 PUFFS/INHALER INH SCH (08:05)
[2023-08-25] MEDS: busPIRone 5 MG TAB PO SCH (08:06)
[2023-08-25] MEDS: METOPROLOL SUCC 25MG EXT REL TAB PO SCH (08:07)
[2023-08-25] MEDS: APIXABAN 5 MG TABLET PO SCH (08:07)
[2023-08-25] MEDS: FUROSEMIDE 20 MG TAB PO SCH (08:08)
[2023-08-25] MEDS: ADVANCED PROBIOTIC 1250 MG CAPSULE PO SCH (08:08)
[2023-08-25] MEDS: SERTRALINE HCL 50 MG TABLET PO SCH (08:09)
[2023-08-25] MEDS: MICONAZOLE NITRATE 2% CR 30 GM TUBE EXT SCH (08:09)
[2023-08-25] MEDS: OXYBUTYNIN CHLORIDE XL 5 MG TABCR PO SCH (08:10)
--- NOTE | 2023-08-25 09:27 | Hospitalist Progress Note ---
Date of Service August 25, 2023 Assessment & Plan (1) Hypovolemic shock: (2) Anemia: (3) Acute gastrointestinal bleeding: (4) Anticoagulant long-term use: Plan: ACUTE BLOOD LOSS ANEMIA SECONDARY TO ACUTE GI BLEED HYPOVOLEMIC SHOCK IN THE SETTING OF SUPRATHERAPEUTIC INR, COUMADIN USE OF RECURRENT STROKE Patient presenting from home with reports of generalized weakness and dark tarry stools. In the ED, found to be hypotensive and Hgb 3.9, INR 2.2 Recent hx of elev. INR as outpt (>9) S/p vitamin K, Kcentra, desmopressin in the ED Transfused PRBC, FFP, per ED and ICU PPI drip GI consulted - pt underwent EGD on (08/13/23) - Findings: The examined esophagus was normal. The entire examined stomach was normal. There was a large submucosal nodule likely a lipoma in the gastric body. The duodenal bulb and second portion of the duodenum were normal. Impression: - Normal esophagus. - Normal stomach. 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 - Normal duodenal bulb and second portion of the duodenum. - No specimens collected. Recommendation: - Return patient to hospital hopper for ongoing care. - EUS electively as OP to confirm the lipoma. - Monitor H/H. - If any signs of rebleeding then please obtain a bleeding scan to localize the source. GI bleed resolved OK to resume anticoagulation per GI patient transitioned to Eliquis as per below monitor CBC regularly Acute CVA Right parieto-occipital infarct Left homonymous hemianopsia next during admission, notified by PT that pt is feeling dizzy, has facial numbness, and vision changes and reports to PT that she feels like having a stroke. Discussed w[place] [place] bedside - would not recommend thrombolytics given pt admitted with profound anemia / GI bleed. Per his exam pt was only deficient in one eye. Recommends brain MRI, ophthalmology eval and migraine cocktail. MRI and ophtho consult ordered. CT head - negative EMERSON head/ neck - 1. 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 2. Otherwise unremarkable CTA of the head and neck. 3. Chronic left MCA infarct. Brain MRI: 1. Moderate-sized acute right parieto-occipital infarct. 2. No acute intracranial hemorrhage or midline shift. 3. Chronic MCA infarcts with chronic white matter disease. Doppler US LE: no DVT Neurologist consulted- Dr. Airam Noel with [facility] Anticoagulation held for a few days in light of moderate-sized stroke to prevent hemorrhagic transformation Discussed at length with Dr. Jerry Pacheco who is the patient's film examiner Patient has a history of recurrent stroke in the setting of suspected underlying atrial fibrillation and confirmed ASD/PFO from a previous SHANEKA in 2017, and has been on Coumadin since that time He recommends transitioning patient from Coumadin to Eliquis in light of recent GI bleed in the setting of supratherapeutic INR Therefore, Eliquis 5 mg p.o. twice daily initiated August 22, 202308/25 remains stable neurologically still has hemianopsia but has not worsened Continue Eliquis 5 mg twice daily Hemoglobin stable Monitor closely (5) UTI (urinary tract infection): Plan: urine cultx - posit for e. coli - pansensitive completed course of Ceftriaxone IV (6) COPD (chronic obstructive pulmonary disease): (7) Chronic respiratory failure with hypoxia: Plan: (+) wheezing noted during admission O2 requirement increased from 4 L which is her baseline to 6 L CXR no pneumonia Given prednisone, nebs, Lasix resumed 08/25 Wheezing mostly resolved back to 4 L of nasal cannula (goal O2 saturation 89-92%) Received 3 days of prednisone 40 mg daily, taper to 30 mg x 2 days, 20 mg x 2 days, 10 mg x 2 days then stop Encouraged to use incentive spirometer, flutter valve (8) Chronic diastolic CHF (congestive heart failure): Plan: possible component of mild volume overload Usually on Lasix 40 mg p.o. twice daily Required IV Lasix Patient diuresed well, approaching euvolemia currently on Lasix 20 mg p.o. twice daily in light of marginal blood pressure monitor volume status closely increase Lasix to usual 40mg BID if needed monitor BMP regularly (9) Paroxysmal A-fib: Plan: Rate controlled on metoprolol Anticoagulated on Coumadin -held due to profound anemia, hypovolemic shock, GI bleeding secondary to supratherapeutic INR 08/25 per discussion with [employer] Strategist Dr. Pacheco, started Eliquis 5mg BID as mentioned above (10) Depression, unspecified: (11) Anxiety disorder, unspecified: Plan: patient reporting increased anxiety Psych consulted recommendations noted Sertraline daily started Ativan increased to 1mg TID PRN Anxiety improved monoitor DVT PROPHYLAXIS now on Eliquis Disposition discharge to [facility] today follow up with [employer] Strategist, Neurologist in 3 weeks Admission and Anticipated Discharge Date Admission Date: August 12, 2023 Subjective ff up for GI bleed, acute CVA, etc seen resting in bed, comfortable on 4 L O2, not in distress, calm states she feels fine no shortness of breath, cough, chest pain, palpitations, dizziness no abdominal pain, nausea/vomiting, hematochezia/melena no other symptoms states she is ready for discharge to Rehab today Review of Systems Review of Systems: all noted and negative except for above Physical Exam Physical Exam: General- oriented x 3, not in distress, speaks in sentences with no effort or accessory muscle use Eyes- anicteric Neck- no JVD Lungs- clear breath sounds bilaterally, no rales/wheezes Heart- normal rate, regular rhythm; no murmurs Abdomen- normal bowel sounds, nondistended, soft, nontender Extremities- no pretibial edema, no calf tenderness Neuro- alert, oriented x 3; no gross focal neurologic deficits Skin- warm & dry Results & Data Results & Data Vital Signs (Past 12 Hours) Vital Signs Temp Pulse Pulse Resp BP Pulse Ox O2 Del Method 08/25/23 07:54 Nasal Cannula 08/25/23 06:07 72 08/25/23 06:50 85 16 96 Nasal Cannula 08/25/23 06:26 36.6 C 84 20 122/74 94 Nasal Cannula 08/25/23 03:17 36.4 C L 87 18 131/87 94 Nasal Cannula 08/25/23 00:00 82 08/25/23 00:03 37.1 C 86 18 105/66 90 Nasal Cannula 08/24/23 22:27 36.5 C 80 18 121/72 91 Nasal Cannula O2 Flow Rate 08/25/23 07:54 6 08/25/23 06:07 08/25/23 06:50 6 08/25/23 06:26 6 08/25/23 03:17 6 08/25/23 00:00 08/25/23 00:03 6 08/24/23 22:27 6 all noted and reviewed including below
--- NOTE | 2023-08-25 09:43 | Discharge Summary ---
Discharge Summary Date of Service August 25, 2023 Notes For Next Care Provider Medication Changes From Visit PLEASE REFER TO ACCOMPANYING MEDICAL RECONCILIATION FORM. Admission HPI Per Admitting Provider 63-year-old female with PMH COPD on chronic 4 L of oxygen, paroxysmal atrial fibrillation on Coumadin, chronic diastolic CHF, RUFINA, obesity hypoventilation, history of multiple strokes, and other problems listed below who presents to the ED for evaluation of weakness. History obtained from the patient and review of PCP records. Patient has had an INR > 9 on outpatient testing. Coumadin was held. Patient has noted dark tarry stools. She denies abdominal pain, nausea, vomiting. No chest pain or shortness of breath. Denies fevers and chills. No urinary symptoms. In the ED, patient was found to be hypotensive. Labs showed Hgb 3.9, lactate 5.9, INR 2.2. Patient was given IV vitamin K 10 mg, Kcentra, desmopressin. PPI bolus and drip started. Patient will be admitted to ICU for additional management. Admission Exam Per Admitting Provider PER ER PHYSICIAN GENERAL: alert and oriented in no acute distress on stretcher Head: normocephalic and atraumatic EYES: No injection, discharge or icterus. PERRL NECK: Trachea midline. Supple without midline tenderness ENT: Mucous membranes pink and moist. LUNGS: Airway patent. No retractions. Breath sounds clear with good air entry bilaterally. HEART: Regular rate and rhythm. No chest wall tenderness ABDOMEN: Soft obese, with minimal diffuse abdominal tenderness. No guarding. Rectal with nurse energy derivatives trader: No evidence of active blood but dark black and Hemoccult positive stool. SKIN: Acyanotic, warm, dry, without rashes EXTREMITIES: With 1-2+ edema of the lower extremities. There are some resolving contusion prickly around the right foot without significant point tenderness. Few mild scattered bruises on the upper extremities from recent blood draws. NEUROLOGICAL: No focal deficits. No aphasia. No facial droop noted. Principal Dx & Hospital Course #1 = Principal Diagnosis (1) Acute gastrointestinal bleeding: (2) Anticoagulant long-term use: ACUTE BLOOD LOSS ANEMIA SECONDARY TO ACUTE GI BLEED HYPOVOLEMIC SHOCK IN THE SETTING OF SUPRATHERAPEUTIC INR, COUMADIN USE OF RECURRENT STROKE Patient presenting from home with reports of generalized weakness and dark tarry stools. In the ED, found to be hypotensive and Hgb 3.9, INR 2.2 Recent hx of elev. INR as outpt (>9) S/p vitamin K, Kcentra, desmopressin in the ED Transfused PRBC, FFP, per ED and ICU PPI drip GI consulted - pt underwent EGD on (08/13/23) - Findings: The examined esophagus was normal. The entire examined stomach was normal. There was a large submucosal nodule likely a lipoma in the gastric body. The duodenal bulb and second portion of the duodenum were normal. Impression: - Normal esophagus. - Normal stomach. 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 - Normal duodenal bulb and second portion of the duodenum. - No specimens collected. Recommendation: - Return patient to hospital hopper for ongoing care. - EUS electively as OP to confirm the lipoma. - Monitor H/H. - If any signs of rebleeding then please obtain a bleeding scan to localize the source. GI bleed resolved OK to resume anticoagulation per GI patient transitioned to Eliquis as per below monitor CBC regularly Acute CVA Right parieto-occipital infarct Left homonymous hemianopsia next during admission, notified by PT that pt is feeling dizzy, has facial numbness, and vision changes and reports to PT that she feels like having a stroke. Discussed /[facility] stroke neuro at the bedside - would not recommend thrombolytics given pt admitted with profound anemia / GI bleed. Per his exam pt was only deficient in one eye. Recommends brain MRI, ophthalmology eval and migraine cocktail. MRI and ophtho consult ordered. CT head - negative [place] head/ neck - 1. 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 2. Otherwise unremarkable CTA of the head and neck. 3. Chronic left MCA infarct. Brain MRI: 1. Moderate-sized acute right parieto-occipital infarct. 2. No acute intracranial hemorrhage or midline shift. 3. Chronic MCA infarcts with chronic white matter disease. Doppler US LE: no DVT Neurologist consulted- Dr. Airam Noel with [facility] Anticoagulation held for a few days in light of moderate-sized stroke to prevent hemorrhagic transformation Discussed at length with Dr. Jerry Pacheco who is the patient's moulder operator Patient has a history of recurrent stroke in the setting of suspected underlying atrial fibrillation and confirmed ASD/PFO from a previous SHANEKA in 2017, and has been on Coumadin since that time He recommends transitioning patient from Coumadin to Eliquis in light of recent GI bleed in the setting of supratherapeutic INR Therefore, Eliquis 5 mg p.o. twice daily initiated August 22, 202308/25 remains stable neurologically still has hemianopsia but has not worsened Continue Eliquis 5 mg twice daily Hemoglobin stable Monitor closely (3) UTI (urinary tract infection): urine cultx - posit for e. coli - pansensitive completed course of Ceftriaxone IV (4) COPD (chronic obstructive pulmonary disease): (5) Chronic respiratory failure with hypoxia: (+) wheezing noted during admission O2 requirement increased from 4 L which is her baseline to 6 L CXR no pneumonia Given prednisone, nebs, Lasix resumed 08/25 Wheezing mostly resolved back to 4 L of nasal cannula (goal O2 saturation 89-92%) Received 3 days of prednisone 40 mg daily, taper to 30 mg x 2 days, 20 mg x 2 days, 10 mg x 2 days then stop Encouraged to use incentive spirometer, flutter valve (6) Chronic diastolic CHF (congestive heart failure): possible component of mild volume overload Usually on Lasix 40 mg p.o. twice daily Required IV Lasix Patient diuresed well, approaching euvolemia currently on Lasix 20 mg p.o. twice daily in light of marginal blood pressure monitor volume status closely increase Lasix to usual 40mg BID if needed monitor BMP regularly (7) Paroxysmal A-fib: Rate controlled on metoprolol Anticoagulated on Coumadin -held due to profound anemia, hypovolemic shock, GI bleeding secondary to supratherapeutic INR 08/25 per discussion with Tube Sizer And Cutter Operator Dr. Pacheco, started Eliquis 5mg BID as mentioned above (8) Depression, unspecified: (9) Anxiety disorder, unspecified: patient reporting increased anxiety Psych consulted recommendations noted Sertraline daily started Ativan increased to 1mg TID PRN Anxiety improved monoitor DVT PROPHYLAXIS now on Eliquis Disposition discharge to [facility] today follow up with Tube Sizer And Cutter Operator, Neurologist in 3 weeks Discharge Exam General- oriented x 3, not in distress, speaks in sentences with no effort or accessory muscle use Eyes- anicteric Neck- no JVD Lungs- clear breath sounds bilaterally, no rales/wheezes Heart- normal rate, regular rhythm; no murmurs Abdomen- normal bowel sounds, nondistended, soft, nontender Extremities- no pretibial edema, no calf tenderness Neuro- alert, oriented x 3; no gross focal neurologic deficits Skin- warm & dry Updated Medication List Medication Instructions Recorded Confirmed Type albuterol sulfate 5 mg/mL(0.5 %) 2.5 mg inhalation DIRECTED PRN 08/20/22 08/12/23 History solution for nebulization Shortness Of Breath Or Wheezing albuterol sulfate 90 mcg/actuation 2 puff inhalation QID PRN sob 08/20/22 08/12/23 History aerosol inhaler baclofen 10 mg tablet 10 mg PO TID PRN Muscle Pain 08/20/22 08/12/23 History buspirone 10 mg tablet 20 mg PO AMHS 08/20/22 08/12/23 History cholecalciferol (vitamin D3) 25 25 mcg PO QAM 08/20/22 08/12/23 History mcg (1,000 unit) capsule (Vitamin D3) isosorbide mononitrate 30 mg 30 mg PO QAM 08/20/22 08/12/23 History tablet,extended release 24 hr lorazepam 0.5 mg tablet 0.5 mg PO Q8 PRN Anxiety 08/20/22 08/12/23 History tramadol 100 mg tablet 100 mg PO Q8 PRN .MOD-SEVERE PAIN 08/20/22 08/12/23 History warfarin 5 mg tablet 2.5 mg PO MOWEFR@1600 08/20/22 08/12/23 History ferrous sulfate 325 mg (65 mg 325 mg PO QAM 01/12/23 08/12/23 History iron) tablet acetaminophen 300 mg-codeine 30 mg 1 tab PO Q6 PRN Moderate Pain 07/15/23 08/12/23 History tablet (Scale Score 5-6) fluticasone propionate 115 2 puff inhalation AMHS 07/15/23 08/12/23 History mcg-salmeterol 21 mcg/actuation HFA inhaler (Advair HFA) metoprolol succinate 25 mg 25 mg PO QAM 07/15/23 08/12/23 History tablet,extended release 24 hr omeprazole 20 mg capsule,delayed 20 mg PO AMHS 07/15/23 08/12/23 History release potassium chloride 10 mEq 10 meq PO AMHS 07/15/23 08/12/23 History capsule,extended release solifenacin 10 mg tablet 10 mg PO QAM 07/15/23 08/12/23 History warfarin 5 mg tablet 5 mg PO SUTUTHSA 07/15/23 08/12/23 History furosemide 20 mg tablet (Lasix) 40 mg PO BID #30 tabs 07/23/23 08/12/23 Rx miconazole nitrate 2 % topical 1 applic EXT BID #28 grams 07/23/23 08/12/23 Rx cream montelukast 10 mg tablet 10 mg PO HS #30 tabs 07/23/23 08/12/23 Rx umeclidinium 62.5 mcg/actuation 1 inh inhalation DAILY #30 ea 07/23/23 08/12/23 Rx blister powder for inhalation (Incruse Ellipta) L.acidop,casei,lactis,rham-B.lact,ruth 2 cap PO DAILY 30 days #60 caps 08/25/23 Rx 625 mg (10 billion cell) capsule (Advanced Probiotic) albuterol sulfate 2.5 mg/3 mL 2.5 mg (3 mL) NEB QIDR 3 days #75 08/25/23 Rx (0.083 %) solution for nebulization mL apixaban 5 mg tablet (Eliquis) 5 mg PO BID 30 days #60 tabs 08/25/23 Rx furosemide 20 mg tablet 20 mg PO BID17 30 days #30 tabs 08/25/23 Rx lorazepam 1 mg tablet 1 mg PO TID PRN anxiety #14 tabs 08/25/23 Rx mirtazapine 15 mg tablet 30 mg PO HS 30 days #60 tabs 08/25/23 Rx prednisone 10 mg tablet 10 mg PO DAILY #12 tabs 08/25/23 Rx sertraline 50 mg tablet 50 mg PO QAM 30 days #30 tabs 08/25/23 Rx Hospital Stay Data Consultations 08/12/23 18:08 ED Decision to Admit Stat 08/12/23 19:47 Consult Gastroenterology Routine Consult Alumni Relations Coordinator Routine 08/17/23 12:09 Consult Ophthalmology Routine 08/17/23 18:23 Consult Orthopedic Surgery Stat 08/17/23 18:25 Consult Neurology Routine 08/19/23 14:03 Consult Psychiatry Routine Procedures Performed Operation Date: 08/13/23 17:25 Actual Procedures p Esophagogastroduodenoscopy - Argenis Leger MD Diagnostic Imagining Performed Laboratory Results WBC 9.35 K/ul (4.8-10.8) 08/25/23 05:51 RBC 3.34 M/uL (4.20-5.40) L 08/25/23 05:51 Hgb 8.7 g/dl (12.0-16.0) L 08/25/23 05:51 POC Hgb TNP 08/12/23 16:44 Hct 28.9 % (37.0-47.0) L 08/25/23 05:51 POC Hct < 15 % (37-47) L* 08/12/23 16:44 MCV 86.5 fL (80.0-100.0) 08/25/23 05:51 MCH 26.0 pg (25.0-34.0) 08/25/23 05:51 MCHC 30.1 g/dL (32.0-36.0) L 08/25/23 05:51 RDW Std Deviation 54.7 fL (36.4-46.3) H 08/25/23 05:51 RDW Coeff of Ursula 17.2 % (11.5-14.5) H 08/25/23 05:51 Plt Count 590 K/uL (130-400) H 08/25/23 05:51 MPV 8.6 fL (9.4-12.4) L 08/25/23 05:51 Immature Gran % (Auto) 0.5 % 08/25/23 05:51 Neut % (Auto) 75.5 % 08/25/23 05:51 Lymph % (Auto) 14.5 % 08/25/23 05:51 [place] % (Auto) 9.4 % 08/25/23 05:51 Eos % (Auto) 0.0 % 08/25/23 05:51 Baso % (Auto) 0.1 % 08/25/23 05:51 Neut # (Auto) 7.05 K/uL (1.40-6.50) H 08/25/23 05:51 Lymph # (Auto) 1.36 K/uL (1.20-3.40) 08/25/23 05:51 [place] # (Auto) 0.88 K/uL (0.11-0.59) H 08/25/23 05:51 Eos # (Auto) 0.00 K/uL (0.00-0.50) 08/25/23 05:51 Baso # (Auto) 0.01 K/uL (0.00-0.20) 08/25/23 05:51 Immature Gran # (Auto) 0.05 K/uL (0.01-0.20) 08/25/23 05:51 Absolute Nucleated RBC Cancelled 08/21/23 08:39 Nucleated RBC % (auto) Cancelled 08/21/23 08:39 Neutrophils % (Manual) Cancelled 08/21/23 08:39 Band Neutrophils % Cancelled 08/21/23 08:39 Lymphocytes % (Manual) Cancelled 08/21/23 08:39 Prolymphocyte % Cancelled 08/21/23 08:39 Reactive Lymphs % (Man) Cancelled 08/21/23 08:39 Monocytes % (Manual) Cancelled 08/21/23 08:39 Eosinophils % (Manual) Cancelled 08/21/23 08:39 Basophils % (Manual) Cancelled 08/21/23 08:39 Metamyelocytes % (Man) Cancelled 08/21/23 08:39 Myelocytes % (Man) Cancelled 08/21/23 08:39 Promyelocytes % (Man) Cancelled 08/21/23 08:39 Blast Cells % (Manual) Cancelled 08/21/23 08:39 Plasma Cell % (Manual) Cancelled 08/21/23 08:39 Other Cells % Cancelled 08/21/23 08:39 Nucleated RBC % Cancelled 08/21/23 08:39 Neutrophils # (Manual) Cancelled 08/21/23 08:39 Band Neutrophils # Cancelled 08/21/23 08:39 Total Absolute Neuts Cancelled 08/21/23 08:39 Lymphocytes # (Manual) Cancelled 08/21/23 08:39 Prolymphocyte # Cancelled 08/21/23 08:39 Reactive Lymphs # Cancelled 08/21/23 08:39 Total Abs Lymphocytes Cancelled 08/21/23 08:39 Monocytes # (Manual) Cancelled 08/21/23 08:39 Eosinophils # (Manual) Cancelled 08/21/23 08:39 Basophils # (Manual) Cancelled 08/21/23 08:39 Metamyelocytes # (Man) Cancelled 08/21/23 08:39 Myelocytes # (Manual) Cancelled 08/21/23 08:39 Promyelocytes # (Man) Cancelled 08/21/23 08:39 Blast Cells # (Man) Cancelled 08/21/23 08:39 Plasma Cell # (Manual) Cancelled 08/21/23 08:39 Other Cells # Cancelled 08/21/23 08:39 Nucleated RBCs # (Man) Cancelled 08/21/23 08:39 Hypersegmented Neuts Cancelled 08/21/23 08:39 Hyposegmented Neuts Cancelled 08/21/23 08:39 Hypogranular Neuts Cancelled 08/21/23 08:39 Large Granular Lymphs Cancelled 08/21/23 08:39 # Lrg Granular Lymphs Cancelled 08/21/23 08:39 Hairy Cells Cancelled 08/21/23 08:39 Smudge Cells Cancelled 08/21/23 08:39 Toxic Granulation Cancelled 08/21/23 08:39 Toxic Vacuolation Cancelled 08/21/23 08:39 Dohle Bodies Cancelled 08/21/23 08:39 Joaquina Rods Cancelled 08/21/23 08:39 Platelet Estimate Cancelled 08/21/23 08:39 Hypogranular Platelets Cancelled 08/21/23 08:39 Giant Platelets Cancelled 08/21/23 08:39 Platelet Satelliting Cancelled 08/21/23 08:39 RBC Morphology Cancelled 08/21/23 08:39 Polychromasia Cancelled 08/21/23 08:39 Hypochromasia Cancelled 08/21/23 08:39 Poikilocytosis Cancelled 08/21/23 08:39 Basophilic Stippling Cancelled 08/21/23 08:39 Anisocytosis Cancelled 08/21/23 08:39 Microcytosis Cancelled 08/21/23 08:39 Macrocytosis Cancelled 08/21/23 08:39 Spherocytes Cancelled 08/21/23 08:39 Pappenheimer Bodies Cancelled 08/21/23 08:39 Sickle Cells Cancelled 08/21/23 08:39 Target Cells Cancelled 08/21/23 08:39 Tear Drop Cells Cancelled 08/21/23 08:39 Ovalocytes Cancelled 08/21/23 08:39 Stomatocytes Cancelled 08/21/23 08:39 Hill-M[place]urn Bodies Cancelled 08/21/23 08:39 Echinocytes Cancelled 08/21/23 08:39 Acanthocytes (Spur) Cancelled 08/21/23 08:39 Rouleaux Cancelled 08/21/23 08:39 RBC Agglutinates Cancelled 08/21/23 08:39 Schistocytes Cancelled 08/21/23 08:39 Sezary Cell Cancelled 08/21/23 08:39 PT 10.4 Seconds (9.0-12.0) 08/18/23 05:22 INR 0.9 (0.9-1.1) 08/18/23 05:22 Fibrinogen 299 mg/dl (184-400) 08/12/23 19:55 ABG pH 7.46 (7.35-7.45) H 08/23/23 21:18 ABG pCO2 51 mmHg (35-46) H 08/23/23 21:18 ABG pO2 60 mmHg (80-95) L 08/23/23 21:18 ABG HCO3 36 mmol/L (19-24) H 08/23/23 21:18 ABG O2 Saturation 91.5 % (90-95) 08/23/23 21:18 ABG Base Excess 10.6 mEq/L (-9-1.8) H 08/23/23 21:18 Selwyn Test Pos (Pos) 08/23/23 21:18 VBG pH 7.41 (7.36-7.41) 08/22/23 23:52 VBG pCO2 58 mmHg (38-50) H 08/22/23 23:52 VBG pO2 54 mmHg 08/22/23 23:52 VBG HCO3 37 mmol/L 08/22/23 23:52 VBG O2 Saturation 88.8 % 08/22/23 23:52 VBG Base Excess 9.9 mEq/L 08/22/23 23:52 Oxygen Given FLOW RATE 6 08/23/23 21:18 POC Sodium 134 mmol/L (135-144) L 08/12/23 16:44 Sodium 138 mmol/L (136-145) 08/25/23 05:51 POC Potassium 3.0 mmol/L (3.3-5.0) L 08/12/23 16:44 Potassium 3.9 mmol/L (3.5-5.1) 08/25/23 05:51 POC Chloride 89 mmol/L (101-112) L 08/12/23 16:44 Chloride 99 mmol/L (98-107) 08/25/23 05:51 Carbon Dioxide 34 mmol/L (21-32) H 08/25/23 05:51 POC Total CO2 30 mmol/L (24-31) 08/12/23 16:44 Anion Gap 5 (3-11) 08/25/23 05:51 POC Anion Gap 19.0 mmol/L (16-25) 08/12/23 16:44 POC BUN 21 mg/dl (7-18) H 08/12/23 16:44 BUN 15 mg/dl (6-23) 08/25/23 05:51 Creatinine 0.69 mg/dl (0.6-1.2) 08/25/23 05:51 POC Creatinine 1.1 mg/dl (0.6-1.3) 08/12/23 16:44 Est Cr Clr Drug Dosing 115.5 ml/min 08/25/23 05:51 Est GFR ( Amer) 107.4 ml/min 08/25/23 05:51 Est GFR (Non-Af Amer) 92.6 ml/min 08/25/23 05:51 BUN/Creatinine Ratio 21.7 (10-20) H 08/25/23 05:51 Glucose 106 mg/dl (70-99(Fasting)) H 08/25/23 05:51 POC Glucose 172 mg/dl (70-99) H 08/23/23 20:51 POC Glucose (other) 221 mg/dl (70-99) H 08/12/23 16:44 Lactate 1.8 mmol/L (0.4-2.0) 08/22/23 23:58 Calcium 8.7 mg/dl (8.6-10.3) 08/25/23 05:51 POC Ioniz Calcium Saman 1.06 mmol/l (1.12-1.32) L 08/12/23 16:44 Ionized Calcium 1.09 mmol/L (1.12-1.32) L 08/13/23 03:50 Phosphorus 3.2 mg/dl (2.5-4.9) 08/18/23 05:22 Magnesium 1.7 mg/dl (1.7-2.4) 08/22/23 23:35 Total Bilirubin 0.4 mg/dl (0.2-1.0) 08/15/23 06:33 AST 16 U/L (13-39) 08/15/23 06:33 ALT 17 U/L (7-52) 08/15/23 06:33 Alkaline Phosphatase 82 U/L (34-104) 08/15/23 06:33 Ammonia 33.0 umol/L (18-72) 08/22/23 23:35 Total Creatine Kinase 311 U/L (26-192) H 08/12/23 16:38 Troponin I High Sens 6.6 pg/ml (0-14) 08/12/23 16:38 Total Protein 5.6 gm/dl (6.0-8.3) L 08/15/23 06:33 Albumin 3.1 gm/dl (3.4-5.0) L 08/15/23 06:33 Globulin 2.5 gm/dl (2.5-4.0) 08/15/23 06:33 Albumin/Globulin Ratio 1.2 (0.9-2) 08/15/23 06:33 TSH 3.065 uIu/ml (0.300-4.500) 08/12/23 16:38 Urine Color Yellow 08/21/23 12:45 Urine Appearance Clear (Clear) 08/21/23 12:45 Urine pH 6.0 (4.5-7.5) 08/21/23 12:45 Ur Specific [place] 1.006 (1.000-1.030) 08/21/23 12:45 Urine Protein Negative (Negative) 08/21/23 12:45 Urine Glucose (UA) Negative (Negative) 08/21/23 12:45 Urine Ketones Negative (Negative) 08/21/23 12:45 Urine Blood Negative (Negative) 08/21/23 12:45 Urine Nitrite Negative (Negative) 08/21/23 12:45 Urine Bilirubin Negative (Negative) 08/21/23 12:45 Urine Urobilinogen Negative (Negative) 08/21/23 12:45 Ur Leukocyte Esterase 1+ (Negative) H 08/21/23 12:45 Urine WBC (Auto) 5-10 /hpf (0-5) H 08/21/23 12:45 Urine RBC (Auto) 0-4 /hpf (0-4) 08/21/23 12:45 U Hyaline Cast (Auto) 1-5 /lpf (0-5) 08/21/23 12:45 U Epithel Cells (Auto) >30 /lpf (0-5) H 08/21/23 12:45 Urine Bacteria (Auto) Negative (Negative) 08/21/23 12:45 Nasal Screen MRSA (PCR) Negative (Negative) 08/13/23 07:03 POC Stool Occult Blood Positive (Negative) A 08/12/23 17:50 SARS-CoV-2, RNA, NAAT NEGATIVE (NEGATIVE) 08/12/23 17:30 Blood Parasites ID Cancelled 08/21/23 08:39 Blood Type O Negative 08/12/23 16:49 Antibody Screen NEGATIVE 08/12/23 16:49 Crossmatch See Detail 08/12/23 16:[address] 08/12/23 16:49 CT chest diagnostic w con CLINICAL HISTORY: sob, hypoxia, CP, on coumadin TECHNIQUE: Multidetector row helical CT of the chest was performed with intravenous contrast. Coronal and sagittal reformations were obtained. Automated dose lowering techniques and/or adjustment according to patient size were utilized for this exam. Comparison: Comparison is made to CT chest 09/16/2015 FINDINGS: Lungs and pleura: Atelectasis versus scarring is seen in the dependent portions of the lungs. Heart and pericardium: Heart size is normal. No pericardial effusion. Vessels: Mild atherosclerotic changes in the aorta and coronary arteries. No evidence of pulmonary embolus within the limits of a nondedicated exam. Mediastinum and jaylen: Unremarkable. Chest wall and lower neck: Unremarkable. Abdomen: Unremarkable. Bones: Unremarkable. IMPRESSION: No acute abnormalities are seen to explain chest pain and hypoxia. Likely mild interstitial lung disease. ACT 112: Negative or not required by law. Electronically signed by: Joesph Hoyt M.D. 08/12/2023 5:58 PM Abdomen/Pelvis CT 08/16/23 12:52 CT SCAN OF THE ABDOMEN AND PELVIS WITHOUT IV CONTRAST CLINICAL HISTORY: [place] abdominal pain. Distention. COMPARISON STUDY: Abdominal CT dated 08/12/2023. TECHNIQUE: CT scan of the abdomen and pelvis is performed from the lung bases to the proximal femora. Images are reviewed in the axial, sagittal, and coronal planes. IV contrast was not administered for this examination. Note that the examination was performed in suboptimal fashion without oral and IV contrast. A dose lowering technique was utilized adhering to the principles of ALARA. CT DOSE: 1577.75 mGy.cm FINDINGS: Lung bases: The heart is normal in size and without pericardial effusion. The lung bases are clear noting mild dependent atelectasis. Liver: The unenhanced liver is normal in size, contour, and attenuation. There is no intrahepatic biliary ductal dilatation. Gallbladder: Surgically absent noting clips in the gallbladder fossa. Spleen: Normal in size and attenuation. Pancreas: The unenhanced pancreas is mildly atrophic and grossly unremarkable. Adrenal glands: A 1.5 cm left adrenal nodule meets criteria for a fat-containing adenoma. The right adrenal gland is normal in appearance. Kidneys: The unenhanced kidneys demonstrate mild cortical atrophy and are without hydronephrosis. Foci of cortical scarring are seen on the left. No renal calculi are identified. There is no evidence of contour deforming renal mass lesion. Abdominal vasculature: The abdominal aorta is normal in course and caliber noting mild atherosclerotic calcification. Bowel: There is no bowel obstruction. A metallic foreign body is present within the right colon on image #[id number]. The appendix is well-visualized and normal. Peritoneum: There is no intraperitoneal free air or abdominal ascites. Lymphadenopathy: None. Pelvic viscera: The bladder is normal as visualized. The uterus is surgically absent. No adnexal lesion is seen. Skeletal structures: The skeletal structures are osteopenic. There is mild to moderate lumbosacral spondylosis. Arthritic change is noted in the hips. No lytic or blastic lesions are seen. IMPRESSION: No acute infectious or inflammatory findings are identified in the abdomen or pelvis. ACT 112: Negative or not required by law. Electronically signed by: Donavon Littlejohn M.D. 08/16/2023 2:03 PM Head CTA 08/17/23 10:30 CT angio head w con, CT angio neck with con CLINICAL HISTORY: 63 years-old Female with vision changes/ deficits. Acute stroke like symptoms COMPARISON STUDY: Head CT of same day, 08/12/2023, 08/20/2022 TECHNIQUE: Following the IV administration of 119 cc of Optiray, CT angiogram of the head and neck was performed from the aortic arch to the skull apex. Images are reviewed in the axial, sagittal, and coronal planes. 3-D MIPS images are created and assessed. IV contrast was administered without complication. All measurements were obtained according to NASCET criteria. A dose lowering technique was utilized adhering to the principles of ALARA. FINDINGS: CT ANGIOGRAM OF THE HEAD AND NECK: Three-vessel morphology of the thoracic arch. There is patency of the innominate and image subclavian arteries. The common carotid arteries are widely patent. Atherosclerotic plaque of the carotid bulbs without significant stenosis. The internal carotid arteries are patent bilaterally. The bilateral anterior and middle cerebral arteries are also patent. The vertebrobasilar system and right posterior cerebral arteries are widely patent. There is age indeterminate occlusion involving the P1 segment of the left posterior cerebral artery with 331 series 9 there is no aneurysm, high-grade stenosis, or proximal branch occlusion identified. Dural sinuses appear patent. Chronic left MCA infarct. Involutional changes with probable chronic microvascular ischemic disease. Pulmonary apices are clear. Unremarkable soft tissues. Subcentimeter hypodense right-sided thyroid nodule. No acute fracture. Degenerative changes of the cervical spine. Prior bilateral intraperitoneal IMPRESSION: 1. 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 2. Otherwise unremarkable CTA of the head and neck. 3. Chronic left MCA infarct. ACT 112: Negative or not required by law. The above report was generated using voice recognition software. It may contain grammatical, syntax or spelling errors. Electronically signed by: Alvarez Peters M.D. 08/17/2023 11:24 AM Neck CTA 08/17/23 10:30 CT angio head w con, CT angio neck with con CLINICAL HISTORY: 63 years-old Female with vision changes/ deficits. Acute stroke like symptoms COMPARISON STUDY: Head CT of same day, 08/12/2023, 08/20/2022 TECHNIQUE: Following the IV administration of 119 cc of Optiray, CT angiogram of the head and neck was performed from the aortic arch to the skull apex. Images are reviewed in the axial, sagittal, and coronal planes. 3-D MIPS images are created and assessed. IV contrast was administered without complication. All measurements were obtained according to NASCET criteria. A dose lowering technique was utilized adhering to the principles of ALARA. FINDINGS: CT ANGIOGRAM OF THE HEAD AND NECK: Three-vessel morphology of the thoracic arch. There is patency of the innominate and image subclavian arteries. The common carotid arteries are widely patent. Atherosclerotic plaque of the carotid bulbs without significant stenosis. The internal carotid arteries are patent bilaterally. The bilateral anterior and middle cerebral arteries are also patent. The vertebrobasilar system and right posterior cerebral arteries are widely patent. There is age indeterminate occlusion involving the P1 segment of the left posterior cerebral artery with 331 series 9 there is no aneurysm, high-grade stenosis, or proximal branch occlusion identified. Dural sinuses appear patent. Chronic left MCA infarct. Involutional changes with probable chronic microvascular ischemic disease. Pulmonary apices are clear. Unremarkable soft tissues. Subcentimeter hypodense right-sided thyroid nodule. No acute fracture. Degenerative changes of the cervical spine. Prior bilateral intraperitoneal IMPRESSION: 1. 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 2. Otherwise unremarkable CTA of the head and neck. 3. Chronic left MCA infarct. ACT 112: Negative or not required by law. The above report was generated using voice recognition software. It may contain grammatical, syntax or spelling errors. Electronically signed by: Alvarez Peters M.D. 08/17/2023 11:24 AM Venous Doppler Study 08/18/23 14:50 Exam(s): US VENOUS BILATERAL LOWER EXTREMITIES EXAM: US Duplex Bilateral Lower Extremities Veins CLINICAL HISTORY: Reason for exam: r/o dvt, acute CVA. TECHNIQUE: Real-time duplex ultrasound scan of the bilateral lower extremity veins integrating B-mode two-dimensional vascular structure, Doppler spectral analysis, color flow Doppler imaging and compression. COMPARISON: No relevant prior studies available. FINDINGS: Artifacts: Artifact: Technically difficult study secondary to patient body habitus and ability to tolerate the exam. Right deep veins: Unremarkable. The visualized deep veins of the right lower extremity are compressible with color flow. No visualized thrombus. Right superficial veins: Unremarkable. Left deep veins: Unremarkable. The visualized deep veins of the left lower extremity are compressible with color flow. No visualized thrombus. Left superficial veins: Unremarkable. Soft tissues: No acute findings. IMPRESSION: No visualized DVT. Electronically signed by: Alfredo Calabrese MD 08/19/23 01:[address] 08/22/23 08:54 CT SCAN OF THE BRAIN WITHOUT IV CONTRAST CLINICAL HISTORY: Follow-up stroke. COMPARISON STUDY: Prior CT scans of the brain, most recently dated 08/19/2023 TECHNIQUE: Unenhanced axial CT scan of the brain is performed from the vertex to the skull base. A dose lowering technique was utilized adhering to the principles of ALARA. CT DOSE: 703.85 mGy.cm FINDINGS: Brain parenchyma: A subacute/evolving right parieto-occipital infarct is again noted. There is meanwhile surrounding edema. No midline shift is noted. No hemorrhage is identified. Additional chronic infarcts are again seen in the right frontal lobe, the right temporal lobe, and the left MCA territory. There is age-related involutional change noting mild subcortical and periventricular microangiopathic disease. No extra-axial fluid collection is seen. Ventricles, sulci, cisterns: Prominent secondary to involutional change. Intracranial vasculature: There is atherosclerotic calcification of the cavernous carotid arteries. Calvarium: Unremarkable. Sinuses and mastoids: The visualized paranasal sinuses are clear. The mastoid air cells are well pneumatized. Orbits: The bony orbits are grossly intact. There are bilateral ocular lens impl ants. IMPRESSION: 1. Continued evolution of a subacute right parieto-occipital lobe infarct. 2. There is no hemorrhage or midline shift. No new foci of acute ischemia are suspected. 3. Additional chronic infarcts as above. ACT 112: Negative or not required by law. Electronically signed by: Donavon Littlejohn M.D. 08/22/2023 11:43 AM Chest X-Ray 08/24/23 07:48 XR chest 1V portable HISTORY: 63 years-old Female wheezing, r/o CHF acute wheezing with shortness of breath COMPARISON: 08/22/2023 TECHNIQUE: AP view of the chest FINDINGS: Cardiac silhouette is enlarged. Mild chronic interstitial coarsening. No pneumothorax, pleural effusion or overt pulmonary edema. Bones appear grossly intact. IMPRESSION: No acute process. ACT 112: Negative or not required by law. The above report was generated using voice recognition software. It may contain grammatical, syntax or spelling errors. Electronically signed by: Alvarez Peters M.D. 08/24/2023 8:01 AM 08/12/23 16:49 CT abd pelvis IV con only Stat CT chest diagnostic w con Stat 08/12/23 16:50 CT head/brain wo con Stat 08/16/23 12:52 CT abd pelvis wo con Urgent 08/17/23 10:12 CT head/brain wo con Stat 08/17/23 10:30 CT angio head w con Stat CT angio neck with con Stat 08/18/23 10:04 CT head/brain wo con Routine 08/18/23 14:50 US venous doppler LE BI Urgent 08/19/23 14:03 CT head/brain wo con Stat 08/22/23 08:54 CT head/brain wo con Urgent Pending Results Patient Have Any Pending Studies at Discharge: No Discharge Instructions Given to Patient (Per Discharging Provider) PLEASE REFER TO [facility]ANYING [facility]OS[facility]ITAL DISCHARGE SUMMARY. Total Time Total Time Spent Total Time Spent (In Minutes): >30 MINUTES
[2023-08-25] MEDS: ACETAMINOPHEN 500 MG TAB PO PRN (12:12)
[2023-08-25] MEDS: traMADol HCL 50 MG TABLET PO PRN (12:18)
== END 2023-08-25 14:12 | DRG 377 ==
LOC: ED 16:20 → SUATTDRO 18:51 → 1E 18:51 → 2E 08-13 18:18

== ENCOUNTER 2023-11-16 12:53 | Inpatient (IN) ==
--- NOTE | 2023-11-16 13:09 | ED Triage Note ---
Date of Service November 16, 2023 Provider in Triage Author: Raissa Palafox History of Present Illness This patient was briefly evaluated while in triage. An abbreviated physical exam was performed. This patient is a 63-year-old Female who presents to the ED for evaluation of vomiting and diarrhea x 1.5 weeks. She states a nurse came and did a urine test and she has a UTI. Physical Exam VITALS: Vitals are noted on the nurse's note and reviewed by myself. GENERAL: This is a 63-year-old female, chronically unwell appearing, sitting upright in wheelchair in triage. HEART: Regular rate and rhythm without murmurs gallops or rubs. LUNGS: No labored breathing. Pt on oxygen. ABDOMEN: Positive bowel sounds x 4. Soft, generalized tenderness. NEURO: Patient was alert and oriented to person place and time. Initial orders for labs and / or imaging were placed and patient was placed in the waiting area until a bed is available. Please see further documentation for the full ED course.
[2023-11-16 13:57] LABS: Influenza A virus by PCR Negative (Neg); Influenza B virus by PCR Negative (Neg); RSV by PCR Negative (Neg); SARS CoV2 RNA(COVID-19) Ceph NEGATIVE (Negative)
[2023-11-16 14:30] LABS: Basophils # (auto) 0.04 K/uL (0.00-0.20); Basophils % (auto) 0.5 %; Eosinophils # (auto) 0.02 K/uL (0.00-0.50); Eosinophils % (auto) 0.2 %; Hematocrit (blood only) 34.6 % (37.0-47.0); Hemoglobin 11.5 g/dl (12.0-16.0); Immature Granulocytes # (auto) 0.04 K/uL (0.01-0.20); Immature Granulocytes % (auto) 0.5 %; Lymphocytes # (auto) 1.57 K/uL (1.20-3.40); Lymphocytes % (auto) 18.1 %; Mean Corpuscular Hemoglobin 29.9 pg (25.0-34.0); Mean Corpuscular Hgb Conc 33.2 g/dL (32.0-36.0); Mean Corpuscular Volume 89.9 fL (80.0-100.0); Mean Platelet Volume 8.5 fL (9.4-12.4); Monocytes # (auto) 0.76 K/uL (0.11-0.59); Monocytes % (auto) 8.8 %; Neutrophils # (auto) 6.23 K/uL (1.40-6.50); Neutrophils % (auto) 71.9 %; Platelet Count 484 K/uL (130-400); RDW Coefficient of Variation 26.3 % (11.5-14.5); RDW Standard Deviation 83.8 fL (36.4-46.3); Red Blood Count 3.85 M/uL (4.20-5.40); White Blood Count 8.66 K/ul (4.8-10.8)
[2023-11-16 14:50] LABS: Alanine Aminotransferase 11 U/L (7-52); Albumin Globulin Ratio 1.2 (0.9-2); Albumin Level 3.8 gm/dl (3.4-5.0); Alkaline Phosphatase 78 U/L (34-104); Anion Gap 13 (3-11); Aspartate Aminotransferase 19 U/L (13-39); BUN Creatinine Ratio 13.3 (10-20); Bilirubin,Total 0.6 mg/dl (0.2-1.0); Blood Urea Nitrogen 14 mg/dl (6-23); Calcium 8.8 mg/dl (8.6-10.3); Carbon Dioxide 36 mmol/L (21-32); Chloride 86 mmol/L (98-107); Est GFR (African American) 65.5 ml/min; Est GFR (Non-African American) 56.5 ml/min; Globulin 3.3 gm/dl (2.5-4.0); Glucose 179 mg/dl (70-99(Fasting)); Lipase 21 U/L (11-82); Potassium 2.4 mmol/L (3.5-5.1); Sodium 135 mmol/L (136-145); Total Protein 7.1 gm/dl (6.0-8.3)
[2023-11-16 15:04] LABS: Stomatocytes 2+
[2023-11-16] MEDS ORDERED: SODIUM CHLORIDE 0.9% 1,000 ML IV ONE (15:27)
[2023-11-16] MEDS ORDERED: cefTRIAXone SODIUM 2,000 MG/50 ML BAG IV STA (15:27)
--- NOTE | 2023-11-16 15:31 | Emergency Department Note ---
Impression & Plan Nausea, vomiting, and diarrhea, UTI (urinary tract infection), Acute hypokalemia, Abdominal pain, WARD (acute kidney injury), Hypomagnesemia ED Provider Note HISTORY OF PRESENT ILLNESS: Patient is a 63-year-old female presenting with vomiting and diarrhea. Patient reports has been having profuse diarrhea and vomiting and been unable to tolerate oral intake for the last 7 days. Reports that she was seen by home health nurse today and referred to the emergency department because her dipstick urine was grossly positive and she was vomiting. Patient reports that her breathing is at her baseline. She wears 5 L nasal cannula. Denies any recent cough. She denies any measured fevers at home, but reports she has felt sweaty and cold. Reports upper abdominal pain for the last few days. She has a surgical history significant for cholecystectomy. Reports that she has been unable to tolerate her oral medications for the last 7 days secondary to persistent vomiting. ROS: as above PHYSICAL EXAM: Constitutional: Patient appears in no acute distress. Morbidly obese HENT: Head: Normocephalic and atraumatic. Eyes: EOMI, PERRL Mouth/Throat: Mucous membranes moist. Neck: Trachea midline. Neck supple. Cardiovascular: Tachycardic with regular rhythm. No murmurs, rubs or gallops. Intact distal pulses. Pulmonary/Chest: No respiratory distress. Breath sounds clear and equal bilaterally. Expiratory wheezes bilaterally. Abdominal: Abdomen soft, no tenderness, rebound or guarding. Generalized tenderness to palpation. Musculoskeletal: No edema, tenderness or deformity noted. Skin: Warm and dry. No rash, erythema, pallor or cyanosis Psychiatric: Appropriate mood and affect for situation. Neurological: Alert and keenly responsive. CN II-XII grossly intact, moving all extremities equally and fully. MDM: - Vitals signs showed hypotension and tachycardia. Also noted to have borderline hypoxia. - History obtained via patient. Patient presents with vomiting and diarrhea. Patient reports has been having profuse vomiting and diarrhea for the last 7 days. Reports has been unable to tolerate oral intake, including her oral medications for the last 7 days. She was seen by home health nurse today who did a dipstick urine and it was shown to be positive and given her persistent symptoms recommended presentation to the ER. Patient reports generalized abdominal pain. Denies any measured fevers at home but reports she has felt sweaty and cold. - Chronic conditions affecting care: anxiety/depression; morbid obesity; paroxysmal afib (on Coumadin); COPD (on 5L NC); HTN - Differential diagnoses include, but are not limited to: viral syndrome; UTI; sepsis; colitis; diverticulitis; appendicitis - Order placed for continuous cardiac monitoring. At this time, monitor showed rate of 100 bpm with normal sinus rhythm, per my interpretation. - External medical records reviewed. Showed [EMS sheet, outpt notes, outpt imaging] - EKG interpreted by myself showed normal sinus rhythm. Rate 91 bpm. QT prolonged at 416. No acute ischemic changes. - Laboratory workup interpreted by myself showed normal WBC; chronic anemia (Hgb 11.5 - improved from previous 8s); hypokalemia (K 2.4); elevated anion gap (13); WARD (Cr 1.05 - but baseline around 0.7); hypomagnesemia (Mg 1.5) - COVID/flu/RSV negative - CT abdomen/pelvis with IV contrast negative for acute pathology - Patient given 50 mcg IV fentanyl for abdominal pain. - Given that patient is not tolerating PO, IV potassium replacement ordered. Given 1L NS and 10 mEq x2 IV potassium. Given 1g IV magnesium for electrolyte replacement. - UA reportedly positive pre-hospital on dip-stick with home health nurse. 2g IV rocephin ordered. - Discussion was had with manager intensive care about patient's case and need for admission - Hospitalist consulted for admission - Patient admitted to [facility] Hospitalist service for further evaluation and management. ASSESSMENT AND PLAN: Diagnosis: nausea, vomiting and diarrhea; hypokalemia; WARD; abdominal pain; UTI; hypomagnesemia Plan: admit Past Med/Surg History Medical History (Updated 11/16/23 @ 17:02 by Kerry Lazcano MD) Swelling of left hand Encounter for pre-operative examination Sleep apnea mild RUFINA (dx in ) no machine currently -- pt to have another sleep study february 2023. Osteoarthritis Degenerative disc disease Urinary incontinence Peripheral neuropathy Anemia Congestive heart failure follows with [facility] cardiology (Patricia banks) Hypertension Dementia "very early stages" Alert and oriented x3. granddaughter is the caregiver of patient. Post traumatic stress disorder On home oxygen therapy continuous 3lpm via n/c. (will increase to 4lpm via n/c if needed) History of COVID-19 Spring 2020. treated at [facility] inpatient. symptoms included: sob, cough, desaturation 84-87%, congestion, headache, fatigue. no ventilator at the time. no current problems. Diarrhea started about 1 year ago -- will come and go. Chronic respiratory failure with hypoxia COPD (chronic obstructive pulmonary disease) Submucosal lesion of stomach Noted on EGD 11/06/20 Anticoagulated on Coumadin Paroxysmal A-fib feels her heart race at times. Chronic pain on daily narcotics (tramadol PRN) Morbid obesity Anxiety and depression History of stroke "embolic stroke, underlying PFO" total of 9 strokes -> last stroke ~6+years ago. damaged urinary nerve and mild left sided weakness. Surgical History Hx of lumpectomy left breast (benign) History of cataract surgery bilateral History of cardiac cath [facility] - "long time ago" -- pt unsure of details. H/O colonoscopy H/O esophagogastroduodenoscopy Status post hernia repair Right inguinal Status post hysterectomy MERT with BSO Status post cholecystectomy Family History Grandmother (Maternal) FHx: bladder cancer Father FHx: stroke Other Heart disease No family history of adverse response to anesthesia Social History Smoking Status: Never smoker Tobacco Type: Cigarettes Second Hand Exposure: No; Do You Dip or Chew Tobacco: No; Hx Alcohol Use: No Hx Substance Use: No Preferred Language: Lithuanian Communication Ability: Effective Rug Cleaner Required: No Beliefs That Will Affect Care: None marital status: / Current Living Situation: Alone Current Living Situation Comment: Granddaughter is the caregiver. Comes M-F 8am-4pm. Feels Safe at Home: Yes Assistive Devices: Denture - Upper, Glasses, Hospital Bed, Oxygen - Continuous, Scooter/Electric Scooter, Walker and Wheelchair Allergies Allergies Allergy/AdvReac Type Severity Reaction Status Date / Time aspirin Allergy Unknown TAKES Verified 11/16/23 16:07 COUMADIN salicylates AdvReac Unknown ?DUE TO Verified 11/16/23 16:07 COUMADIN? Home Meds Home Medications Medication Instructions Recorded Confirmed albuterol sulfate 5 mg/mL(0.5 %) 2.5 mg inhalation DIRECTED PRN 08/20/22 11/16/23 solution for nebulization Shortness Of Breath Or Wheezing albuterol sulfate 90 mcg/actuation 2 puff inhalation QID PRN sob 08/20/22 11/16/23 aerosol inhaler tramadol 100 mg tablet 100 mg PO Q8 PRN .MOD-SEVERE PAIN 08/20/22 11/16/23 ferrous sulfate 325 mg (65 mg 325 mg PO QAM 01/12/23 11/16/23 iron) tablet acetaminophen 300 mg-codeine 30 mg 1 tab PO Q6 PRN Moderate Pain 07/15/23 11/16/23 tablet (Scale Score 5-6) omeprazole 20 mg capsule,delayed 20 mg PO AMHS 07/15/23 11/16/23 release potassium chloride 10 mEq 10 meq PO AMHS 07/15/23 11/16/23 capsule,extended release solifenacin 10 mg tablet 10 mg PO QAM 07/15/23 11/16/23 apixaban 5 mg tablet (Eliquis) 5 mg PO BID 11/16/23 11/16/23 baclofen 10 mg tablet 10 mg PO TID PRN .muscle spasm 11/16/23 11/16/23 cholecalciferol (vitamin D3) 1,250 50,000 unit PO WE 11/16/23 11/16/23 mcg (50,000 unit) capsule donepezil 5 mg tablet 5 mg PO QAM 11/16/23 11/16/23 furosemide 40 mg tablet 40 mg PO BID 11/16/23 11/16/23 ipratropium 0.5 mg-albuterol 3 mg 3 ml inhalation QID PRN Shortness 11/16/23 11/16/23 (2.5 mg base)/3 mL nebulization Of Breath Or Wheezing soln iron,carbonyl 65 mg-vitamin C 125 2 tab PO QAM 11/16/23 11/16/23 mg tablet,delayed release (Vitron-C) isosorbide mononitrate 30 mg 30 mg PO DAILY 11/16/23 11/16/23 tablet,extended release 24 hr lactobacillus combination no.4 3 0 mmu cells PO PM 11/16/23 11/16/23 billion cell capsule (Probiotic) lorazepam 0.5 mg tablet 0.5 mg PO Q6 PRN Anxiety 11/16/23 11/16/23 metoprolol succinate 25 mg 25 mg PO QAM 11/16/23 11/16/23 tablet,extended release 24 hr mirtazapine 30 mg tablet 30 mg PO HS 11/16/23 11/16/23 nystatin 100,000 unit/gram topical 1 applic topical BID 11/16/23 11/16/23 powder (Nyamyc) ramelteon 8 mg tablet 8 mg PO HS 11/16/23 11/16/23 sertraline 50 mg tablet 50 mg PO HS 11/16/23 11/16/23 sulfamethoxazole 800 1 tab PO AMHS 11/16/23 11/16/23 mg-trimethoprim 160 mg tablet (Bactrim DS) umeclidinium 62.5 mcg/actuation 1 inh inhalation DAILY PRN 11/16/23 11/16/23 blister powder for inhalation Shortness Of Breath Or Wheezing (Incruse Ellipta) Previous Rx's Medication Instructions Recorded montelukast 10 mg tablet 10 mg PO HS #30 tabs 07/23/23 Results & Data (ED) Vital Signs Vital Signs - 24 hr 11/16/23 13:06 11/16/23 15:36 11/16/23 15:40 Temperature 36.4 C L Temperature Source Oral Pulse Rate 103 H 96 H 94 H Pulse Rate from SpO2 Sensor 92 H 94 H Respiratory Rate 20 15 20 Respiratory Effort / Characteristics Non-Labored Spontaneous Respiratory Depth Normal Blood Pressure 95/64 L Blood Pressure Mean 74 Pulse Oximetry 92 93 93 Oxygen Delivery Method Nasal Cannula Oxygen Flow Rate 5 Sepsis Recent Fever Within 48 Hours No Sepsis New/Unexplained Change in Mental Status No Sepsis Action Taken by Nursing Adv Provider Notified 11/16/23 15:50 11/16/23 15:55 11/16/23 15:55 Temperature Temperature Source Pulse Rate 88 89 Pulse Rate from SpO2 Sensor 88 86 Respiratory Rate 18 14 Respiratory Effort / Characteristics Respiratory Depth Blood Pressure 112/46 L Blood Pressure Mean 51 Pulse Oximetry 94 94 Oxygen Delivery Method Oxygen Flow Rate Sepsis Recent Fever Within 48 Hours Sepsis New/Unexplained Change in Mental Status Sepsis Action Taken by Nursing 11/16/23 16:18 11/16/23 16:20 11/16/23 16:30 Temperature Temperature Source Pulse Rate 173 H 195 H 84 Pulse Rate from SpO2 Sensor 86 84 Respiratory Rate 15 19 16 Respiratory Effort / Characteristics Respiratory Depth Blood Pressure Blood Pressure Mean Pulse Oximetry 95 97 Oxygen Delivery Method Oxygen Flow Rate Sepsis Recent Fever Within 48 Hours Sepsis New/Unexplained Change in Mental Status Sepsis Action Taken by Nursing 11/16/23 16:30 11/16/23 16:40 11/16/23 16:50 Temperature Temperature Source Pulse Rate 87 80 Pulse Rate from SpO2 Sensor 89 80 Respiratory Rate 12 Respiratory Effort / Characteristics Respiratory Depth Blood Pressure 124/87 Blood Pressure Mean 97 Pulse Oximetry 98 96 Oxygen Delivery Method Oxygen Flow Rate Sepsis Recent Fever Within 48 Hours Sepsis New/Unexplained Change in Mental Status Sepsis Action Taken by Nursing 11/16/23 17:00 11/16/23 17:00 11/16/23 17:10 Temperature Temperature Source Pulse Rate 80 78 Pulse Rate from SpO2 Sensor 79 80 Respiratory Rate 21 Respiratory Effort / Characteristics Respiratory Depth Blood Pressure 121/79 Blood Pressure Mean 80 Pulse Oximetry 96 96 Oxygen Delivery Method Oxygen Flow Rate Sepsis Recent Fever Within 48 Hours Sepsis New/Unexplained Change in Mental Status Sepsis Action Taken by Nursing Laboratory Data 11/16/23 14:12 11/16/23 14:12 Lab Results 11/16/23 11/16/23 Range/Units 13:10 14:12 WBC 8.66 (4.8-10.8) K/ul RBC 3.85 L (4.20-5.40) M/uL Hgb 11.5 L (12.0-16.0) g/dl Hct 34.6 L (37.0-47.0) % MCV 89.9 (80.0-100.0) fL MCH 29.9 (25.0-34.0) pg MCHC 33.2 (32.0-36.0) g/dL RDW Std Deviation 83.8 H (36.4-46.3) fL RDW Coeff of Ursula 26.3 H (11.5-14.5) % Plt Count 484 H (130-400) K/uL MPV 8.5 L (9.4-12.4) fL Immature Gran % (Auto) 0.5 % Neut % (Auto) 71.9 % Lymph % (Auto) 18.1 % Carson % (Auto) 8.8 % Eos % (Auto) 0.2 % Baso % (Auto) 0.5 % Neut # (Auto) 6.23 (1.40-6.50) K/uL Lymph # (Auto) 1.57 (1.20-3.40) K/uL Carson # (Auto) 0.76 H (0.11-0.59) K/uL Eos # (Auto) 0.02 (0.00-0.50) K/uL Baso # (Auto) 0.04 (0.00-0.20) K/uL Immature Gran # (Auto) 0.04 (0.01-0.20) K/uL Stomatocytes 2+ PT 11.0 (9.0-12.0) Seconds INR 1.0 (0.9-1.1) Sodium 135 L (136-145) mmol/L Potassium 2.4 L* (3.5-5.1) mmol/L Chloride 86 L (98-107) mmol/L Carbon Dioxide 36 H (21-32) mmol/L Anion Gap 13 H (3-11) BUN 14 (6-23) mg/dl Creatinine 1.05 (0.6-1.2) mg/dl Est Cr Clr Drug Dosing Not Reportable Est GFR ( Amer) 65.5 ml/min Est GFR (Non-Af Amer) 56.5 ml/min BUN/Creatinine Ratio 13.3 (10-20) Glucose 179 H (70-99(Fasting)) mg/dl Calcium 8.8 (8.6-10.3) mg/dl Magnesium 1.5 L (1.7-2.4) mg/dl Total Bilirubin 0.6 (0.2-1.0) mg/dl AST 19 (13-39) U/L ALT 11 (7-52) U/L Alkaline Phosphatase 78 (34-104) U/L Total Protein 7.1 (6.0-8.3) gm/dl Albumin 3.8 (3.4-5.0) gm/dl Globulin 3.3 (2.5-4.0) gm/dl Albumin/Globulin Ratio 1.2 (0.9-2) Lipase 21 (11-82) U/L SARS-CoV-2 (PCR) NEGATIVE (Negative) Influenza Type A (PCR) Negative (Neg) Influenza Type B (PCR) Negative (Neg) RSV (RT-PCR) Negative (Neg) Administered Medications Discontinued Medications Fentanyl Citrate (Fentanyl Citrate Pf 100 Mcg/2 Ml Vial) 50 mcg IV NOW STA Stop: 11/16/23 16:22 Last Admin: 11/16/23 16:35 Dose: 50 mcg Documented By: APPLICATION SUPPORT DEVELOPER Sodium Chloride (Nss) 1,000 mls @ 999 mls/hr IV .Q1H1M ONE Stop: 11/16/23 16:27 Last Admin: 11/16/23 15:39 Dose: 999 mls/hr Documented By: APPLICATION SUPPORT DEVELOPER Ceftriaxone Sodium (Rocephin) 2,000 mg in 50 mls @ 100 mls/hr IV NOW STA Stop: 11/16/23 15:56 Last Infusion: 11/16/23 16:40 Dose: Infused Documented By: APPLICATION SUPPORT DEVELOPER Admin: 11/16/23 15:50 Dose: 100 mls/hr Documented By: APPLICATION SUPPORT DEVELOPER Potassium Chloride (K Harrison / Wtr) 10 meq in 100 mls @ 100 mls/hr IV Q1H MARY Stop: 11/16/23 17:29 Last Admin: 11/16/23 17:14 Dose: 100 mls/hr Documented By: APPLICATION SUPPORT DEVELOPER Infusion: 11/16/23 17:12 Dose: Infused Documented By: APPLICATION SUPPORT DEVELOPER Admin: 11/16/23 15:39 Dose: 100 mls/hr Documented By: APPLICATION SUPPORT DEVELOPER Magnesium Sulfate/Dextrose (Magnesium Sulfate / D5w) 1 gm in 100 mls @ 100 mls/hr IV NOW STA Stop: 11/16/23 17:28 Last Admin: 11/16/23 17:13 Dose: Not Given Documented By: APPLICATION SUPPORT DEVELOPER Ioversol (Optiray 320 125ml) 116 ml IV ONCE ONE Stop: 11/16/23 16:10 Last Admin: 11/16/23 16:16 Dose: 116 ml Documented By: Shirley [facility] Data Radiologist's Impression: Abdomen/Pelvis CT 11/16/23 13:[address] WITH IV CONTRAST CT DOSE: 1408.89 mGy.cm HISTORY: Acute generalized abdominal pain Abdominal pain TECHNIQUE: Multiaxial CT images of the abdomen and pelvis were performed following the IV administration of 116 cc of Optiray, A dose lowering technique was utilized adhering to the principles of ALARA. COMPARISON STUDY: 08/16/2023 FINDINGS: Mild bibasilar mucous plugging. No free air. Unremarkable spleen,, pancreas and liver with probable hepatic steatosis. Cholecystectomy. Patent portal vein. Thickening of the left greater than right adrenal glands bilateral adrenal gland nodule redemonstrated measuring up to 1.9 cm on the left and 1.7 cm on the right compatible with adenomata. Mild cortical thinning of the kidneys with areas of parenchymal scarring. No hydronephrosis. Decompressed urinary bladder with mild wall thickening. Hysterectomy. Atherosclerosis of the aorta without aneurysm. There is no lymphadenopathy. No bowel obstruction or bowel wall thickening. No ascites or mesenteric inflammation. Metallic density focus noted within the hepatic flexure on image 154 series 3, unchanged from prior suggestive of endoscopy clip. Normal appendix. Unremarkable soft tissues. No acute fracture. IMPRESSION: 1. No acute intra-abdominal or intrapelvic abnormality. 2. No bowel obstruction or bowel wall thickening. 3. Additional findings as above. ACT 112: Negative or not required by law. The above report was generated using voice recognition software. It may contain grammatical, syntax or spelling errors. Electronically signed by: Alvarez Peters M.D. 11/16/2023 4:37 PM Discharge Plan Visit Data Chief Complaint: Illness Stated Complaint: NAUSEA, VOMITING, DIARRHEA, POSS. UTI ED Provider: Kerry Lazcano Discharge Problem: Nausea, vomiting, and diarrhea, UTI (urinary tract infection), Acute hypokalemia, Abdominal pain, WARD (acute kidney injury), Hypomagnesemia Forms Stand Alone Forms: [facility] Prescriptions Prescriptions: No Action albuterol sulfate 90 mcg/actuation HFA aerosol inhaler 2 puff INHALATION QID PRN (Reason: sob) albuterol sulfate 5 mg/mL Solution For Nebulization 2.5 mg INHALATION DIRECTED PRN (Reason: Shortness Of Breath Or Wheezing) tramadol 100 mg tablet 100 mg PO Q8 PRN (Reason: .MOD-SEVERE PAIN) potassium chloride 10 mEq capsule, extended release 10 meq PO AMHS omeprazole 20 mg capsule,delayed release(DR/EC) 20 mg PO AMHS acetaminophen-codeine 300-30 mg tablet 1 tab PO Q6 PRN (Reason: Moderate Pain (Scale Score 5-6)) solifenacin 10 mg tablet 10 mg PO QAM montelukast 10 mg Tablet 10 mg PO HS Qty: 30 1RF ferrous sulfate 325 mg (65 mg iron) Tablet 325 mg PO QAM cholecalciferol (vitamin D3) 1,250 mcg (50,000 unit) capsule 50,000 unit PO WE Rx Instructions: mon furosemide 40 mg tablet 40 mg PO BID ipratropium-albuterol 0.5 mg-3 mg(2.5 mg base)/3 mL Solution For Nebulization 3 ml INHALATION QID PRN (Reason: Shortness Of Breath Or Wheezing) donepezil 5 mg tablet 5 mg PO QAM isosorbide mononitrate 30 mg tablet extended release 24 hr 30 mg PO DAILY sulfamethoxazole-trimethoprim [Bactrim DS] 800-160 mg Tablet 1 tab PO AMHS Rx Instructions: Did not start yet. lorazepam 0.5 mg tablet 0.5 mg PO Q6 PRN (Reason: Anxiety) baclofen 10 mg tablet 10 mg PO TID PRN (Reason: .muscle spasm) mirtazapine 30 mg tablet 30 mg PO HS nystatin [Nyamyc] 100,000 unit/gram powder 1 applic TOPICAL BID sertraline 50 mg tablet 50 mg PO HS ramelteon 8 mg tablet 8 mg PO HS Eliquis 5 mg tablet 5 mg PO BID Vitron-C 65 mg iron- 125 mg Tablet,Delayed Release (Dr/Ec) 2 tab PO QAM Incruse Ellipta 62.5 mcg/actuation blister with device 1 inh inhalation DAILY PRN (Reason: Shortness Of Breath Or Wheezing) metoprolol succinate 25 mg tablet extended release 24 hr 25 mg PO QAM Probiotic 3 billion cell Capsule 0 mmu cells PO PM Rx Instructions: administer with a meal Referrals Referrals: Roger Alexandra MD [Primary Care Provider] -
[2023-11-16] MEDS: POTASSIUM CHLORIDE / WTR 10 MEQ/100 ML PLCT IV SCH ×2 (15:39→17:14)
[2023-11-16] MEDS ORDERED: OPTIRAY 320 125ml IV ONE (16:09)
[2023-11-16] MEDS ORDERED: fentaNYL citrate PF 100 MCG/2 ML VIAL IV STA ×2 (16:21→18:40)
[2023-11-16] MEDS ORDERED: MAGNESIUM SULFATE / D5W 1 GM/100 ML BAG IV STA ×2 (16:29→17:01)
--- NOTE | 2023-11-16 16:40 | CT Scan Report ---
ABDOMEN AND PELVIS CT WITH IV CONTRAST CT DOSE: 1408.89 mGy.cm HISTORY: Acute generalized abdominal pain Abdominal pain TECHNIQUE: Multiaxial CT images of the abdomen and pelvis were performed following the IV administrat ion of 116 cc of Optiray, A dose lowering technique was utilized adhering to the principles of ALARA . COMPARISON STUDY: 08/16/2023 FINDINGS: Mild bibasilar mucous plugging. No free air. Unremarkable spleen,, pancreas and liver with probable hepatic steatosis. Cholecystectomy. Patent portal vein. Thickening of the left greater than right adrenal glands bilateral adrenal gland nodule redemonstrated measuring up to 1.9 cm on the left and 1.7 cm on the right compatible with adenomata. Mild cortical thinning of the kidneys with areas of parenchymal scarring. No hydronephrosis. Decompre ssed urinary bladder with mild wall thickening. Hysterectomy. Atherosclerosis of the aorta without an eurysm. There is no lymphadenopathy. No bowel obstruction or bowel wall thickening. No ascites or mesenteric inflammation. Metallic densit y focus noted within the hepatic flexure on image 154 series 3, unchanged from prior suggestive of en doscopy clip. Normal appendix. Unremarkable soft tissues. No acute fracture. IMPRESSION: 1. No acute intra-abdominal or intrapelvic abnormality. 2. No bowel obstruction or bowel wall thickening. 3. Additional findings as above. ACT 112: Negative or not required by law. The above report was generated using voice recognition software. It may contain grammatical, syntax o r spelling errors. Electronically signed by: Alvarez Peters M.D. 11/16/2023 4:37 PM
[2023-11-16 17:00] LABS: Magnesium 1.5 mg/dl (1.7-2.4)
--- NOTE | 2023-11-16 17:58 | History & Physical Report ---
Date of Service November 16, 2023 Assessment & Plan (1) Nausea, vomiting, and diarrhea: Plan: Presumed viral illness, suspect norovirus given community outbreak of this. Awaiting stool sample for confirmation. Continue isolation precautions pending results. If patient has no further diarrhea and no stool sample was collected within 24 hours, would cancel stool culture. In the ER she was already asking for broth and ice chips which was promising. Advance diet as tolerated. (2) Generalized weakness: Plan: Secondary to #1. (3) Hypomagnesemia: Plan: Likely secondary to diarrhea illness. Patient is also on PPI therapy. She received 2 g in the ER and is now being started on additional 2 g IV overnight (4) Hypokalemia: Plan: K 2.5 on admission secondary to significant vomiting over the past week with poor p.o. intake. She received 20 mill equivalents in the ER and has been given an additional 40 mill equivalents overnight. Repeat in a.m. and replace p.o. once tolerating. (5) Chronic respiratory failure: Plan: Chronic, stable. Secondary to COPD. See plan below. (6) COPD (chronic obstructive pulmonary disease): Plan: Chronic, appears stable however there is scant wheezing on exam. She does not report any respiratory symptoms but does have a significant history of vomiting with some potential for aspiration and possible chemical pneumonitis setting this off. Ideally would like to avoid steroids. Will give trial of scheduled bronchodilator therapy for the time being and continue treatment for presumed viral illness. If she does not improve or wheezing continues then would continue steroids. She is at her current baseline for oxygen needs. (7) PAF (paroxysmal atrial fibrillation): Plan: Chronic, stable. Patient is in sinus rhythm today. Continue metoprolol and apixaban per home regimen. (8) Morbid obesity: Plan: Heavy weight likely related to depression. Continue treatment for depression and efforts for weight loss. Outpatient counseling recommended. (9) Anxiety and depression: Plan: Chronic, stable. Continue home medications. (10) Dementia: Plan: Per records "very early stages of dementia". Takes donepezil daily. Granddaughter is front end wheel loader operator. Apixaban Full code Disposition-telemetry I spent a total [id number] coordinating, documenting, and providing care for this patient excluding time spent in the performance of separately billed services Mar Brand DO [facility] History of Present Illness Chief Complaint: illness Primary Care Provider: Roger Alexandra MD 63-year-old female presents with intractable vomiting for 1 week and diarrhea. She also has abdominal pain. She was seen by home health nurse who checked her urine which was positive for E. coli. She was sent in today and found to have hypokalemia and hypomagnesemia.Recently admitted in August 2023 for acute GI bleeding on anticoagulation with hypovolemic shock. She had a supratherapeutic INR on Coumadin and at discharge she was put on Eliquis. She has been doing well on this overall and denies any bleeding. She lives alone and home health RNs are in to see her regularly. One week ago she developed vomiting and diarrhea and presented today because a home health RN told her to come based on how she was looking. She also was diagnosed with an E coli UTI with plans to start on Bactrim. She was given Rocephin in the ER today. She is severely depressed. She states that her granddaughter handles her medications, and therefore, she doesn't know all of them. I was unable to get into the outpatient EMR link to confirm, so the med rec is based on what the patient and med tech put together and may need to be checked with family tomorrow. In the ER, she underwent a CT a/p which was unremarkable. She was improved with fentanyl for pain, antiemetics and IVF. Electrolyte replacement for low K and low Mg were started. Allergies Allergy/AdvReac Type Severity Reaction Status Date / Time aspirin Allergy Unknown TAKES Verified 11/16/23 16:07 COUMADIN salicylates AdvReac Unknown ?DUE TO Verified 11/16/23 16:07 COUMADIN? Home Medications Medication Instructions Recorded Confirmed Type albuterol sulfate 5 mg/mL(0.5 %) 2.5 mg inhalation DIRECTED PRN 08/20/22 11/16/23 History solution for nebulization Shortness Of Breath Or Wheezing albuterol sulfate 90 mcg/actuation 2 puff inhalation QID PRN sob 08/20/22 11/16/23 History aerosol inhaler acetaminophen 300 mg-codeine 30 mg 1 tab PO Q6 PRN Moderate Pain 07/15/23 11/16/23 History tablet (Scale Score 5-6) omeprazole 20 mg capsule,delayed 20 mg PO AMHS 07/15/23 11/16/23 History release potassium chloride 10 mEq 10 meq PO AMHS 07/15/23 11/16/23 History capsule,extended release solifenacin 10 mg tablet 10 mg PO QAM 07/15/23 11/16/23 History montelukast 10 mg tablet 10 mg PO HS #30 tabs 07/23/23 11/16/23 Rx apixaban 5 mg tablet (Eliquis) 5 mg PO BID 11/16/23 11/16/23 History baclofen 10 mg tablet 10 mg PO TID PRN .muscle spasm 11/16/23 11/16/23 History cholecalciferol (vitamin D3) 1,250 50,000 unit PO WE 11/16/23 11/16/23 History mcg (50,000 unit) capsule donepezil 5 mg tablet 5 mg PO QAM 11/16/23 11/16/23 History furosemide 40 mg tablet 40 mg PO BID 11/16/23 11/16/23 History ipratropium 0.5 mg-albuterol 3 mg 3 ml inhalation QID PRN Shortness 11/16/23 11/16/23 History (2.5 mg base)/3 mL nebulization Of Breath Or Wheezing soln iron,carbonyl 65 mg-vitamin C 125 2 tab PO QAM 11/16/23 11/16/23 History mg tablet,delayed release (Vitron-C) isosorbide mononitrate 30 mg 30 mg PO DAILY 11/16/23 11/16/23 History tablet,extended release 24 hr lorazepam 0.5 mg tablet 0.5 mg PO Q12H PRN Anxiety 11/16/23 11/16/23 History metoprolol succinate 25 mg 25 mg PO QAM 11/16/23 11/16/23 History tablet,extended release 24 hr mirtazapine 30 mg tablet 30 mg PO HS 11/16/23 11/16/23 History nystatin 100,000 unit/gram topical 1 applic topical BID 11/16/23 11/16/23 History powder (Nyamyc) ramelteon 8 mg tablet 8 mg PO HS 11/16/23 11/16/23 History sertraline 50 mg tablet 50 mg PO HS 11/16/23 11/16/23 History Past Med/Surg History Medical History (Updated 11/16/23 @ 21:26 by Mar Brand DO) Swelling of left hand Encounter for pre-operative examination Sleep apnea mild RUFINA (dx in ) no machine currently -- pt to have another sleep study february 2023. Osteoarthritis Degenerative disc disease Urinary incontinence Peripheral neuropathy Anemia Congestive heart failure follows with [facility] cardiology (Patricia banks) Hypertension Dementia "very early stages" Alert and oriented x3. granddaughter is the caregiver of patient. Post traumatic stress disorder On home oxygen therapy continuous 3lpm via n/c. (will increase to 4lpm via n/c if needed) History of COVID-19 Spring 2020. treated at [facility] inpatient. symptoms included: sob, cough, desatu ration 84-87%, congestion, headache, fatigue. no ventilator at the time. no current problems. Diarrhea started about 1 year ago -- will come and go. Chronic respiratory failure with hypoxia COPD (chronic obstructive pulmonary disease) Submucosal lesion of stomach Noted on EGD 11/06/20 Anticoagulated on Coumadin Paroxysmal A-fib feels her heart race at times. Chronic pain on daily narcotics (tramadol PRN) Morbid obesity Anxiety and depression History of stroke "embolic stroke, underlying PFO" total of 9 strokes -> last stroke ~6+years ago. damaged urinary nerve and mild left sided weakness. Surgical History Hx of lumpectomy left breast (benign) History of cataract surgery bilateral History of cardiac cath [facility] - "long time ago" -- pt unsure of details. H/O colonoscopy H/O esophagogastroduodenoscopy Status post hernia repair Right inguinal Status post hysterectomy MERT with BSO Status post cholecystectomy Family History Grandmother (Maternal) FHx: bladder cancer Father FHx: stroke Other Heart disease No family history of adverse response to anesthesia Social History Smoking Status: Never smoker Tobacco Type: Cigarettes Second Hand Exposure: No; Do You Dip or Chew Tobacco: No; Hx Alcohol Use: No Hx Substance Use: No Preferred Language: Taiwanese Communication Ability: Effective Telegraph Operator Required: No Beliefs That Will Affect Care: None marital status: / Current Living Situation: Alone Current Living Situation Comment: Granddaughter is the caregiver. Comes M-F 8am-4pm. Feels Safe at Home: Yes Assistive Devices: Denture - Upper, Glasses, Hospital Bed, Oxygen - Continuous, Scooter/Electric Scooter, Walker and Wheelchair Physical Exam Physical Exam: CONSTITUTIONAL: obese, vitals as above, appears chronically ill, mild distress 2/2 abdominal pain EYES: normal conjunctivae, no scleral icterus ENT: external ear and nose normal, MMM NECK: trachea midline RESPIRATORY: clear to auscultation bilaterally, no crackles, rales or wheezes, normal respiratory effort CARDIOVASCULAR: regular rate and rhythm, S1 and 2 heard without murmurs, gallops or rubs, no JVD, no peripheral edema CHEST: inspection of chest was normal GASTROINTESTINAL: soft, epigastric fullness and TTP, ND, no guarding MUSCULOSKELETAL: generalized weakness with no gross focal deficits, head is normocephalic and atraumatic SKIN: warm and dry NEUROLOGIC: CN 2-12 grossly intact, no sensory deficit, normal cognition, normal speech, no tremor PSYCHIATRIC: alert cooperative and oriented to person, place and time. Euthymic mood, makes good eye contact, language grossly intact, recent and remote memory grossly intact. Results & Data Results & Data Vital Signs (Past 12 Hours) Vital Signs Temp Pulse Resp BP Pulse Ox O2 Del Method O2 Flow Rate 11/16/23 17:10 78 21 96 11/16/23 17:00 121/79 11/16/23 17:00 80 96 11/16/23 16:50 80 12 96 11/16/23 16:40 87 98 11/16/23 16:30 124/87 11/16/23 16:30 84 16 97 11/16/23 16:20 195 H 19 95 11/16/23 16:18 173 H 15 11/16/23 15:55 89 14 94 11/16/23 15:55 112/46 L 11/16/23 15:50 88 18 94 11/16/23 15:40 94 H 20 93 11/16/23 15:36 96 H 15 93 11/16/23 13:06 36.4 C L 103 H 20 95/64 L 92 Nasal Cannula 5 Laboratory Results Short CBC 11/16/23 Range/Units 14:12 WBC 8.66 (4.8-10.8) K/ul Hgb 11.5 L (12.0-16.0) g/dl Hct 34.6 L (37.0-47.0) % Plt Count 484 H (130-400) K/uL BMP 11/16/23 14:12 Sodium 135 L Potassium 2.4 L* Chloride 86 L Carbon Dioxide 36 H BUN 14 Creatinine 1.05 Glucose 179 H Calcium 8.8 Liver Function 11/16/23 Range/Units 14:12 Total Bilirubin 0.6 (0.2-1.0) mg/dl AST 19 (13-39) U/L ALT 11 (7-52) U/L Alkaline Phosphatase 78 (34-104) U/L Albumin 3.8 (3.4-5.0) gm/dl Diagnostic Findings Abdomen/Pelvis CT 11/16/23 13:[address] WITH IV CONTRAST CT DOSE: 1408.89 mGy.cm HISTORY: Acute generalized abdominal pain Abdominal pain TECHNIQUE: Multiaxial CT images of the abdomen and pelvis were performed following the IV administration of 116 cc of Optiray, A dose lowering technique was utilized adhering to the principles of ALARA. COMPARISON STUDY: 08/16/2023 FINDINGS: Mild bibasilar mucous plugging. No free air. Unremarkable spleen,, pancreas and liver with probable hepatic steatosis. Cholecystectomy. Patent portal vein. Thickening of the left greater than right adrenal glands bilateral adrenal gland nodule redemonstrated measuring up to 1.9 cm on the left and 1.7 cm on the right compatible with adenomata. Mild cortical thinning of the kidneys with areas of parenchymal scarring. No hydronephrosis. Decompressed urinary bladder with mild wall thickening. Hysterectomy. Atherosclerosis of the aorta without aneurysm. There is no lymphadenopathy. No bowel obstruction or bowel wall thickening. No ascites or mesenteric inflammation. Metallic density focus noted within the hepatic flexure on image 154 series 3, unchanged from prior suggestive of endoscopy clip. Normal appendix. Unremarkable soft tissues. No acute fracture. IMPRESSION: 1. No acute intra-abdominal or intrapelvic abnormality. 2. No bowel obstruction or bowel wall thickening. 3. Additional findings as above. ACT 112: Negative or not required by law. The above report was generated using voice recognition software. It may contain grammatical, syntax or spelling errors. Electronically signed by: Alvarez Peters M.D. 11/16/2023 4:37 PM (5) Chronic respiratory failure Respiratory failure complication: hypoxia Qualified Code(s): J96.11 - Chronic respiratory failure with hypoxia
[2023-11-16] MEDS ORDERED: POTASSIUM CHLORIDE IV STA (18:01)
[2023-11-16] MEDS ORDERED: SODIUM CHLORIDE 0.9% IV STA (18:01)
[2023-11-16] MEDS ORDERED: MAGNESIUM SULFATE IV STA (18:01)
[2023-11-16] MEDS ORDERED: ONDANSETRON INJ 2 MG/ML 2 ML VIAL IV STA (18:40)
--- OUTSIDE RECORDS SUMMARY | 2023-11-16 19:18 | External Medical Summary | Summary of Care ---
Author Name Unknown Organization [facility] Address [address] [place] [address] Phone [phone] Care Team Providers Care Economics Department Chair Name Role Phone Jeevan Alexandra MD Primary Care Provider [phone] Reason for Visit * Reason Comments eRx-Medication Refill Encounter Details Date Type Department Care Team (Late st Contact Info) Description 11/04/2023 Refill Family Practice [facility] [address] [place] [address] Ney Augustine MD [address], [place] [id number] Allergies Active Allergy Reactions Criticality Noted Date Comments Aspirin Unknown 12/12/2007 von Willebrand's disease Salicylates 03/01/2000 von Willebrand's disease documented as of this encounter (statuses as of 11/05/2023) Medications Medication Sig Dispensed Refills Start Date End Date Status oxygen IN GASIndications:Senior Solutions Architect 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 respiratory failure (HCC),COPD, group [...] with nebulizer 1 Each 0 2 Active Albuterol Sulfate 0.63 MG/3ML Inhalation Nebulization Solution (Accuneb) Inhale 1 Vial (0.63 mg) via nebulizer every 4 hours as needed for Wheezing or Shortness of Breath. 540 mL 12 2 Active Additional Information Patient taking differently:1 Vial Nebulizer Q4H PRN, Wheezing, Shortness of Breath,Taking once daily, Reported on 09/15/2023 Vitron-C 65-125 MG Oral Tablet (Iron-Vitamin C 65-125 mg per tab)Indications:Oth er iron deficiency anemia Take 2 Tablets by mouth in the morning. 60 Tablet 11 3 Active Ipratropium-Albuter ol 0.5-2.5 (3) MG/3ML Inhalation Solution (Duoneb) Inhale 3 ML by mouth every 6 hours as needed for wheezing. J44.9 90 mL 3 3 Active Nystatin 817558 UNIT/GM External Powder (Nyamyc) apply to affected area twice a day 60 g 1 3 Active Isosorbide Mononitrate ER 30 MG Oral Tablet Extended Release 24 Hour (Imdur) take 1 tablet by mouth once daily 30 Tablet 5 3 Active ProAir HFA 108 (90 Base) MCG/ACT Inhalation Aerosol SolutionIndications :Bronchitis, complicated Inhale 2 Puffs by mouth in the morning and 2 Puffs at noon and 2 Puffs in the evening and 2 Puffs before bedtime. 18 g 5 3 Active Solifenacin Succinate 10 MG Oral Tablet (VESIcare) Take 1 Tablet by mouth in the morning. 30 Tablet 1 3 Active Acetaminophen-Codei ne 300-30 MG Oral TabletIndications:C hronic bilateral low back pain without sciatica Take 1 Tablet by mouth every 6 hours as needed for Pain, Moderate. 120 Tablet 0 3 Active Vitamin D3 25 MCG (1000 UT) Oral Capsule Take by mouth. 0 Active traMADol HCl (ER Biphasic) 100 MG Oral Capsule Extended Release 24 Hour Take 1 Capsule by mouth every 8 hours as needed for Pain, Severe. 0 Active Incruse Ellipta 62.5 MCG/ACT Inhalation Aerosol Powder Breath Activated (umeclidinium Larsen) Inhale 1 Puff by mouth in the morning. 0 Active Probiotic & Acidophilus Ex St Oral Capsule Take 2 Capsules by mouth every evening. 0 Active Apixaban 5 MG Oral Tablet (Eliquis) Take 1 Tablet by mouth in the morning and 1 Tablet before bedtime. 0 Active LORazepam 0.5 MG Oral Tablet (Ativan) Take 1 Tablet by mouth every 6 hours as needed for Anxiety. Do not start before October 04, 2023. 120 Tablet 1 3 Active Furosemide 40 MG Oral Tablet (Lasix)Indications: Chronic diastolic CHF (congestive heart failure) (HCC) take 1 tablet by mouth twice a day 60 Tablet 0 3 Active Ramelteon 8 MG Oral Tablet (Rozerem) Take 1 Tablet by mouth at bedtime. 30 Tablet 0 3 Active Vitamin D3 1.25 MG (43819 UT) Oral Capsule Take 1 Capsule by mouth once a week. 4 Capsule 0 3 Active Baclofen 10 MG Oral Tablet (Lioresal)Indicatio ns:Chronic bilateral low back pain without sciatica take 1 tablet by mouth three times a day if needed for muscle spasm 90 Tablet 0 3 Active Metoprolol Succinate ER 25 MG Oral Tablet Extended Release 24 Hour (toPROL XL) take 1 tablet by mouth every morning 30 Tablet 0 3 Active Montelukast Sodium 10 MG Oral Tablet (Singulair) take 1 tablet by mouth at bedtime 30 Tablet 0 3 Active Donepezil HCl 5 MG Oral Tablet (Aricept) take 1 tablet by mouth every morning TAKE WITH THE LARGEST MEAL OF THE DAY 30 Tablet 0 3 Active Omeprazole 20 MG Oral Capsule Delayed Release (PriLOSEC) take 1 capsule by mouth every morning then BEFORE BEDTIME 60 Capsule 0 3 Active Potassium Chloride ER 10 MEQ Oral Capsule Extended Release take 1 capsule by mouth every morning then BEFORE BEDTIME 60 Capsule 0 3 Active Sertraline HCl 50 MG Oral Tablet (Zoloft) take 1 tablet by mouth once daily 30 Tablet 0 3 Active Mirtazapine 30 MG Oral Tablet (Remeron) take 1 tablet by mouth at bedtime 30 Tablet 0 3 Active Sertraline HCl 50 MG Oral Tablet (Zoloft) take 1 tablet by mouth once daily 30 Tablet 0 3 11/05/20 23 Discontinued Mirtazapine 30 MG Oral Tablet (Remeron) take 1 tablet by mouth at bedtime 30 Tablet 0 3 11/05/20 23 Discontinued Donepezil HCl 5 MG Oral Tablet (Aricept) Take 1 Tablet by mouth in the morning. Take with largest meal of the day.. 30 Tablet 0 3 11/05/20 23 Discontinued Metoprolol Succinate ER 25 MG Oral Tablet Extended Release 24 Hour (Toprol XL) Take 1 Tablet by mouth in the morning. 30 Tablet 0 3 11/05/20 23 Discontinued Omeprazole 20 MG Oral Capsule Delayed Release (PriLOSEC) Take 1 Capsule by mouth in the morning and 1 Capsule before bedtime. 60 Capsule 0 3 11/05/20 23 Discontinued Potassium Chloride ER 10 MEQ Oral Capsule Extended Release take 1 capsule by mouth every morning and 1 capsule by mouth BEFORE BEDTIME 60 Capsule 0 3 11/05/20 23 Discontinued Montelukast Sodium 10 MG Oral Tablet (Singulair) Take 1 Tablet by mouth at bedtime. 30 Tablet 0 3 11/05/20 23 Discontinued Hospital, Clinic, or Other Facility [...] as of this encounter (statuses as of 11/05/2023) Active Problems Problem Noted Date Diagnosed Date Food insecurity 09/27/2023 Overview: Per [facility] Protocol Prediabetes 07/13/2023 Decreased functional mobility 08/28/2022 History of narcotic addiction 12/19/2021 Chronic respiratory failure with hypoxia 021 COPD, group D, by GOLD 2017 classification 04/29 Overview: Per COPD GOLD Classification PTSD (post-traumatic stress disorder) 03/05/2021 Chronic diastolic CHF (congestive heart failure) 10/23/2020 Overview: Noted on ECHO 10/2020 History of multiple strokes 10/17/2020 Chronic bilateral low back pain without sciatica 10/14/2020 Paroxysmal atrial fibrillation 10/14/2020 Super obese 03/05/2020 Oxygen dependent 12/29/2019 Acquired hypothyroidism 04/16/2015 Idiopathic cardiomyopathy 09/15/2013 Von Willebrand disease 03/10/2013 Obstructive sleep apnea 07/05/2007 Overview: ICD-10 update of inactive term Irritable bowel syndrome with diarrhea 1 Depression with anxiety documented as of this encounter (statuses as of 11/05/2023) Resolved Problems Problem Noted Date Diagnosed Date Resolved Date Body mass index (BMI) of 40. 0 to 44.9 in adult 10/28/2020 03/05/2021 Overview: Per Obesity protocol Drug-seeking behavior 10/17/20202022 Non compliance w medication regimen 10/14/2020 08/28/2022 Hemiplegia 06/07/2020 10/14/2020 Moderate episode of recurren t major depressive disorder 03/05/2020 08/28/2022 Venous stasis 04/16/2015 12/29/2019 Narcotic addiction 10/04/2014 2 MEDICATION USE AGREEMENT 01/29/2014 ADVANCE DIRECTIVE INFORMATION 09/13/2013 12/29/2019 Overview: No, Advance Directive brochure given to patient at prior appointment. Urinary, incontinence, stress female 05/08/2013 12/29/2019 Anxiety state 05/12/2012 12/29/2019 Seizure 05/02/2012 12/29/2019 Urinary incontinence 05/02/2012 020 Overview: ICD-10 update of inactive term Benign neoplasm of colon 10/06/2010 Overview: adenomatous/repeat colonoscopy in 1 yr Obesity, Class I, BMI 30.0-3 4.9 (see actual BMI) 02/06/2010 03/05/2020 Overview: Per Obesity Taxonomy Disc disorder of lumbar region 12/19/2009 10/14/2020 Dyslipidemia, goal to be determined 10/24/2009 05/01/2011 Overview: Per Lipid Taxonomy. Cerebrovascular disease, art eriosclerotic, post-stroke 02/26/2009 10/17/2020 Overview: Modified per CVA protocol #8 Chest pain 01/23/2009 05/01/2011 Patent foramen ovale 12/21/2008 022 Chest pain, non-cardiac 12/12/200712/16 COPD, severe 04/06/2007 05/01/2021 Acute bronchitis, antibiotics not indicated 04/06/2007 06/27/2008 SIMA (generalized anxiety disorder) 02/08/2006 08/28/2022 Atrial septal defect 02/04/2006 009 Atrial septal aneurysm 02/04/200612/21 watermaster current use of ant icoagulant therapy 06/01/2005 03/05/2021 Overview: ICD-10 update of inactive term Carotid stenosis, non-symptomatic 03/16/2005 03/14/2007 Medical home patient encounter 07/31/2004 07/27/2023 CVA 07/31/2004 02/28/2009 Overview: Modified per CVA protocol #8 ATRIAL SEPTAL ANEURYSM(aka ANEURYSM) 07/31/2004 02/04/2006 Malaise and fatigue 03/07/2004 05/01/20 11 Back disorder 03/07/2004 05/02/2012 Mixed dyslipidemia 03/07/2004 9 Overview: Per Lipid Taxonomy. CEREBROVASC DISEASE NEC 02/01/200412/16 Pelvic pain in female 03/26/20032019 OBESITY, UNSPECIFIED 07/19/2002 010 Overview: Per Obesity Taxonomy EXT ASTHMA W-O STAT ASTH Tobacco use disorder 021 documented as of this encounter (statuses as of 11/05/2023) Immunizations Name Administration Dates Next Due H1N1 2009 Influenza, IM 12/19/2009 Pneumococcal Polysaccharide PPV23 (Pneumovax) 03/20/2009 Seasonal Influenza Virus Vac cine, Unspecified Formulation 11/11/2021,09/15/2020,10/03/2017,08/21,08/01/2014,07/30/2014,08/09/2013 ,08/03/2012,08/24/2011,08/06/2010,02/2010,09/20/2007,09/04/2003 Seasonal Influenza, PF, 6 M & above, IM , (FluLaval or Fluzone) 08/28/2022,11/11/2021 Seasonal Influenza, Quadriva lent, No Preserve, [...] drink = 0.6 oz pur e alcohol) PHQ-2 Answer Date Recorded PHQ Adult Total Score 24 11/04/2023 Hunger Vital Sign Answer Date Recorded Within the past 12 months, y ou worried that your food would run out before you got the money to buy more. Sometimes true Within the past 12 months, t he food you bought just didn't last and you didn't have money to get more. Often true 04/2023 Sex and Gender Information Value Date Recorded Sex Assigned at Female 09/20/2023 3:17 PM EST Gender Identity Female 09/20/2023 3:17 PM EST Sexual Orientation Not on file Job Start Date Occupation Industry Not on file Not on file Not on file documented as of this encounter Miscellaneous Notes * Telephone Encounter - Willa Wilde, DO - 11/05/2023 1:56 PM ESTSigned Prescriptions: Disp Refills Metoprolol Succinate ER 25 MG Oral Tablet *30 Tab*0 Sig: take 1 tablet by mouth every morning Authorizing Provider: JEEVAN ALEXANDRA Ordering User: ALAN PAYNE Montelukast Sodium 10 MG Oral Tablet (Sing*30 Tab*0 Sig: take 1 tablet by mouth at bedtime Authorizing Provider: JEEVAN ALEXANDRA Ordering User: ALAN PAYNE Donepezil HCl 5 MG Oral Tablet (Aricept) 30 Tab*0 Sig: take 1 tablet by mouth every morning TAKE WITH THE LARGEST MEAL OF THE DAY Authorizing Provider: WILLA WILDE Omeprazole 20 MG Oral Capsule Delayed Rele*60 Cap*0 Sig: take 1 capsule by mouth every morning then BEFORE BEDTIME Authorizing Provider: JEEVAN ALEXANDRA Ordering User: ALAN PAYNE Potassium Chlori de ER 10 MEQ Oral Capsule *60 Cap*0 Sig: take 1 capsule by mouth every morning then BEFORE BEDTIME Authorizing Provider: JEEVAN ALEXANDRA Ordering User: ALAN PAYNE Sertraline HCl 50 MG Oral Tablet (Zoloft) 30 Tab*0 Sig: take 1 tablet by mouth once daily Authorizing Provider: JEEVAN ALEXANDRA Ordering User: ALAN PAYNE Mirtazapine 30 MG Oral Tablet (Remeron) 30 Ta b*0 Sig: take 1 tablet by mouth at bedtime Authorizing Provider: JEEVAN ALEXANDRA Ordering User: ALAN PAYNE * Telephone Encounter - Alan Payne [facility] - 11/05/2023 10:49 AM ESTPending Prescriptions: Disp Refills Donepezil HCl 5 MG Oral Tablet (Aricept) 30 Tab*0 Sig: take 1 tablet by mouth every morning TAKE WITH THE LARGEST MEAL OF THE DAY Signed Prescriptions: Disp Refills Metoprolol Succinate ER 25 MG Oral Tablet *30 Tab*0 Sig: take 1 tablet by mouth every morning Authorizing Provider: JEEVAN ALEXANDRAOrdering User: ALAN PAYNE Montelukast Sodium 10 MG Oral Tablet (Sing*30 Tab*0 Sig: take 1 tablet by mouth at bedtime Authorizing Provider: JEEVAN ALEXANDRA Ordering User: ALAN PAYNE Omeprazole 20 MG Oral Capsule Delayed Rele*60 Cap*0 Sig: take 1 capsule by mouth every morning then BEFORE BEDTIME Authorizing Provider: JEEVAN ALEXANDRA Ordering User: ALAN PAYNE Potassium Chloride ER 10 MEQ Oral Capsule *60 Cap*0 Sig: take 1 capsule by mouth every morning then BEFORE BEDTIME Authorizing Provider: JEEVAN ALEXANDRA Ordering User: ALAN PAYNE Sertraline HCl 50 MG Oral Tablet (Zoloft) 30 Tab*0 Sig: take 1 tablet by mouth once daily Authorizing Provider: JEEVAN ALEXANDRA Ordering User: ALAN PAYNE Mirtazapine 30 MG Oral Ta blet (Remeron) 30 Tab*0 Sig: take 1 tablet by mouth at bedtime Authorizing Provider: JEEVAN ALEXANDRA Ordering User: ALAN PAYNE * Telephone Encounter - Alan Payne [facility] - 11/05/2023 10:48 AM EST [facility] is currently not authorized to approve refills for the pended medication(s) per refill protocol. Please approve if appropriate. Thank you, Alan Payne PharmD Clinical Pharmacist [facility] ([facility]) 11/05/23 10:48 AM [phone] * Telephone Encounter - Alan Payne [facility] - 11/05/2023 10:47 AM EST RX authorized. Zero refills given until upcoming OV. Thank you, Alan Payne PharmD Clinical Pharmacist [facility] ([facility]) 11/05/23 10:47 AM [phone]. documented in this encounter Plan of Treatment Upcoming Encounters Date Type Department Care Team (Late st Contact Info) Description 11/17/2023 9:30 AM EST [facility] [address] [place] [address] Sharmaine Johns PA-C [address] [place] [address] Kim Carrziales, [facility] [employer] [address] [place] [address] 11/29/2023 3:30 PM EST Telemedicine Psychiatry, [facility] [address] [facility] [place] [address] Hugo Alcantara MD [address] [place] [address] 01/07/2024 1:30 PM EST Office Visit Cardiology, [facility] [address] [facility] [place] [address] Saray Muhammad CRNP [address] [place] [address] Scheduled Procedures Name Priority Associated Diagnoses Date/Ti [...] (2 - Td or Tdap) 06/27/2018 06/27/2008 Hepatitis B (1 of 3 - Risk 3-dose series) 2020 *ADVANCE DIRECTIVE NOT ON FILE 02/16/2022 Influenza Vaccine (FLU shot) (#1) 2023 08/28/2022, 11/11/2021, 11/11/2021, Additional history exists Mammogram 09/04/2023 09/04/2022, 08/16, 10/28/2015, Additional history exists Depression, Most Recent Score >= 10 (will fire each visit until score < 10) 11/05/2023 11/04/2023 HbA1c 07/12/2024 07/12/2023, 08/15, 04/19/2014, Additional history exists O2 ASSESSMENT COMPLETED IN PAST YEAR FOR COPD 10/29/2024 10/29/2023 COLONOSCOPY-EVERY 5 YRS AGES 18-100 01/14/2028 01/13/2023, 01/13/2023, 11/12/2020, Additional history exists Lipid Panel 03/09/2028 03/09/2023, 08/15, 09/25/2015, Additional history exists Alpha-1 Antitrypsin Completed 02/16/2022 LUNG CANCER SCREENING - USE SMARTSET 18623 Completed 2023, 03/16/2022, 08/24/2018, Additional history exists GARDASIL-HPV IMMUNIZATION SERIES Aged Out No longer eligible based on patient's age to complete this topic MENINGOCOCCAL (MENACTRA/MENVEO) Aged Out No longer eligible based on patient's age to complete this topic documented as of this encounter Medical Devices Not on filedocumented as of this encounter Advance Directives Healthcare Agents on File Name Relationship Healthcare Agent Relationshi p Communication Laura Gant Adult [facility] Associate Director Data & Analytics resentative (appointed verbally by patient or by statute hierarchy) Darlene Gilbert Adult [facility] Associate Director Data & Analytics resentative (appointed verbally by patient or by statute hierarchy) Care Teams Economics Department Chair Relationship Specialty Start Date End Date Jeevan Alexandra MD [address] [place] [id number] PCP - General Family Medicine 12/29/19 documented as of this encounter
--- OUTSIDE RECORDS SUMMARY | 2023-11-16 19:18 | External Medical Summary | Summary of Care ---
Author Name Unknown Organization [facility] Address [address] [place] [address] Phone [phone] Care Team Providers Care Water Resources Technical Officer Name Role Phone Jeevan Mclean MD Primary Care Provider [phone] Reason for Visit * Reason Comments eRx-Medication Refill Encounter Details Date Type Department Care Team (Late st Contact Info) Description 10/30/2023 Refill Family Practice [facility] [address] [place] [address] Jeevan Mclean MD [address] [place] [address] Chronic bilateral low back pain without sciatica Allergies Active Allergy Reactions Criticality Noted Date Comments Aspirin Unknown 12/12/2007 von Willebrand's disease Salicylates 03/01/2000 von Willebrand's disease documented as of this encounter (statuses as of 11/01/2023) Medications Medication Sig Dispensed Refills Start Date End Date Status oxygen IN GASIndications:Microsoft Access Developer 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 respiratory failure (HCC),COPD, group D, [...] D, by GOLD 2017 classification ([facility]),Chronic hypoxemic respiratory failure ([facility]) Use with nebulized meds 1 Each 0 2 Active Full Kit Nebulizer SetIndications:COPD , group D, by GOLD 2017 classification ([facility]),Chronic hypoxemic respiratory failure ([facility]) Use with nebulizer 1 Each 0 2 [...] J44.9 90 mL 3 3 Active Nystatin 881055 UNIT/GM External Powder ([facility]) apply to affected area twice a day [...] MCG/ACT Inhalation Aerosol Powder Breath Activated (umeclidinium [place]) Inhale 1 Puff by mouth in the [...] a day 60 Tablet 0 3 Active Sertraline HCl 50 [...] of the day.. 30 Tablet 0 3 Active Metoprolol Succinate ER 25 MG Oral Tablet Extended Release 24 Hour (Toprol XL) Take 1 Tablet by mouth in the morning. 30 Tablet 0 3 Active Ramelteon 8 MG Oral Tablet (Rozerem) Take 1 Tablet by mouth at bedtime. 30 Tablet 0 3 Active Omeprazole 20 MG Oral Capsule Delayed Release (PriLOSEC) Take 1 Capsule by mouth in the morning and 1 Capsule before bedtime. 60 Capsule 0 3 Active Potassium Chloride ER 10 MEQ Oral Capsule Extended Release take 1 capsule by mouth every morning and 1 capsule by mouth BEFORE BEDTIME 60 Capsule 0 3 Active Montelukast Sodium 10 MG Oral Tablet (Singulair) Take 1 Tablet by mouth at bedtime. 30 Tablet 0 3 Active Vitamin D3 1.25 MG (04646 UT) Oral Capsule Take 1 Capsule by mouth once a week. 4 Capsule 0 3 Active Baclofen 10 MG Oral Tablet (Lioresal)Indicatio ns:Chronic bilateral low back pain without sciatica take 1 tablet by mouth three times a day if needed for muscle spasm 90 Tablet 0 3 Active Baclofen 10 MG Oral Tablet (Lioresal)Indicatio ns:Chronic bilateral low back pain without sciatica Take 1 Tablet by mouth 3 times a day as needed for Muscle spasms. 90 Tablet 0 3 11/01/20 23 Discontinued Hospital, Clinic, or Other Facility Administered Medication Ordered Dose Route Frequency Start Date End Date Status Albuterol Sulfate (Proventil) (2.5 MG/3ML) 0.083% inhalation solution 2.5 mgIndications:COPD, group D, by GOLD 2017 classification ([facility]) 2.5 mg NEBULIZER PRN 03/03/2023 03/02/2024 Acti ve Albuterol Sulfate (Proventil) (5 MG/ML) 0.5% *conc* inhalation solution 2.5 mgIndications:COPD, group D, by GOLD 2017 classification ([facility]) 2.5 mg NEBULIZER PRN 03/03/2023 03/02/2024 Acti ve documented as of this encounter (statuses as of 11/01/2023) Active Problems Problem Noted Date Diagnosed Date [...] as of this encounter (statuses as of 11/01/2023) Resolved Problems Problem Noted Date Diagnosed Date [...] defect 02/04/2006 009 Atrial septal aneurysm 02/04/200612/21 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 06/01/2005 [...] as of this encounter (statuses as of 11/01/2023) Immunizations Name Administration Dates Next Due H1N1 [...] Answer Date Recorded PHQ Adult Total Score 19 04/23/2021 Hunger Vital Sign Answer Date Recorded Within [...] Telephone Encounter - Jeevan Mclean MD - 11/01/2023 7:47 AM ESTSigned Prescriptions: Disp Refills Baclofen 10 MG Oral Tablet (Lioresal) 90 Tab*0 Sig: take 1 tablet by mouth three times a day if needed for muscle spasm Authorizing Provider: JEEVAN MCLEAN * Telephone Encounter - Elsa Solo LPN - 11/01/2023 7:13 AM ESTPending Prescriptions: Disp Refills Baclofen 10 MG Oral Tablet [Pharmacy Med N*90 Tab*0 Sig: take 1 tablet by mouth three times a day if needed for muscle spasm * Telephone Encounter - Elsa Solo LPN - 11/01/2023 7:11 AM EST Did you pend patient's preferred pharmacy and medication before forwarding?yes Pharmacy: [id number] Pending Prescriptions: Disp Refills Baclofen 10 MG Oral Tablet (Lioresal) [Ph*90 Tab*0 Sig: take 1 tablet by mouth three times a day if needed for muscle spasm Last Visit: 07/27/2023 (in office), 12/16/2022 (telemedicine) Next Visit: Visit date not found If no future appointments scheduled, and last appointment is greater than a year ago, please schedule patient for a follow-up appointment Last date the medication was ordered: 07/30/23 Is this request for a controlled substance?No Urine Drug Screen:No results found. However, due to the size of the patient record, not all encounters were searched. Please check Results Review for a complete set of results. Patient Phone Numbers Labs: Lab Results Component Value Date/Time CREAT 0.9 09/27/2023 09:50 AM CREAT 0.77 11/21/2021 12:00 AM CREAT 0.7 10/17/2020 03:40 PM POTASSIUM 4.1 09/27/2023 09:50 AM POTASSIUM 2.8 (A) 11/21/2021 12:00 AM POTASSIUM 4.6 10/17/2020 03:40 PM TSH 1.18 09/27/2023 09:50 AM TSH 0.66 12/29/2019 10:22 AM LDLCALC 131 (H) 03/09/2023 12:12 PM LDLCALC 111 08/24/2018 04:39 AM LDLCALC 123 05/01/2011 11:39 AM LDLDIRECT 138 (H) 02/14/2015 09:27 AM ALT 13 09/27/2023 09:50 AM ALT 6 (L) 12/29/2019 10:22 AM HGBA1C 6.3 (H) 07/12/2023 07:01 AM HGBA1C 5.8 08/24/2018 04:39 AM HGBA1C 5.7 04/19/2014 12:08 PM * Telephone Encounter - Octavia Zamora - 10/30/2023 7:21 PM ESTPending Prescriptions: Disp Refills Baclofen 10 MG Oral Tablet [Pharmacy Med N*90 Tab*0 Sig: take 1tablet by mouth three times a day if needed for muscle spasm documented in this encounter Plan of Treatment Upcoming Encounters Date Type Department Care Team (Late st Contact Info) Description 11/17/2023 9:30 AM EST Telemedicine [facility] [place] [place] [address] [facility] [place] [address] Sharmaine Johns PA-C [address] [place] [address] Kim Carrizales, [employer] Sales Representative [address] [place] [address] 11/29/2023 3:30 PM EST Telemedicine Psychiatry, [facility] [address] [place] [address] Hugo Alcantara MD [address], [place] [address] 01/07/2024 1:30 PM EST Office Visit Cardiology, [facility] [address] [place] [address] Saray Muhammad CRNP [address] [place] [address] Scheduled Procedures Name Priority Associated Diagnoses Date/Ti [...] of 3 - Risk 3-dose series) 2020 Depression, Most Recent Score >= 10 (will fire each visit until score < 10) 04/24/2021 04/23/2021 *ADVANCE DIRECTIVE NOT ON FILE 02/16/2022 Influenza Vaccine (FLU shot) (#1) 2023 08/28/2022, 11/11/2021, 11/11/2021, Additional history exists Mammogram 09/04/2023 09/04/2022, 08/16, 10/28/2015, Additional history exists HbA1c 07/12/2024 07/12/2023, 08/15, 04/19/2014, Additional history exists O2 ASSESSMENT COMPLETED IN PAST YEAR FOR COPD 10/29/2024 10/29/2023 COLONOSCOPY-EVERY 5 YRS AGES 18-100 01/14/2028 01/13/2023, 01/13/2023, 11/12/2020, Additional history exists Lipid Panel 03/09/2028 03/09/2023, 08/15, 09/25/2015, Additional history exists Alpha-1 Antitrypsin Completed 02/16/2022 LUNG CANCER SCREENING - USE SMARTSET 23358 Completed 2023, 03/16/2022, 08/24/2018, Additional history exists [...] sciatica documented in this encounter Advance Directives Healthcare Agents on File Name Relationship Healthcare Agent Relationshi p Communication Laura Gant Adult [facility] Health Department Supervisor resentative (appointed verbally by patient or by statute hierarchy) Darlene Vladimir Adult [facility] Health Department Supervisor resentative (appointed verbally by patient or by statute hierarchy) Care Teams Water Resources Technical Officer Relationship Specialty Start Date End Date Jeevan Mclean MD [address] [place] [address] PCP - General Family Medicine 12/29/19 documented as of this encounter
--- OUTSIDE RECORDS SUMMARY | 2023-11-16 19:18 | External Medical Summary | Summary of Care ---
Author Name Unknown Organization [facility] Address [address] [facility] [place] [address] Phone [phone] Care Team Providers Care Patient Transition Specialist Name Role Phone Roger Alexandra MD Primary Care Provider [phone] Reason for Visit * Reason Onset Date Comments Advice 08/10/2023 Encounter Details Date Type Department Care Team (Late st Contact Info) Description 08/10/[address] [facility] [address] [place] [address] Roger Alexandra MD [address] [place] [address] Advice Allergies Active Allergy Reactions Criticality Noted Date Comments Aspirin Unknown 12/12/2007 von Willebrand's disease Salicylates 03/01/2000 von Willebrand's disease documented as of this encounter (statuses as of 11/09/2023) Medications Medication Sig Dispensed Refills Start Date [...] Each 0 2 Active Full Kit Nebulizer SetIndications:SHIRT MAKER D, group D, by GOLD 2017 classification ([facility] [...] J44.9 90 mL 3 3 Active Nystatin 549198 UNIT/GM External Powder ([facility]) apply to affected [...] in the morning. 30 Tablet 6 3 023 Discontinued(Re fill) Donepezil HCl 5 MG Oral Tablet (Aricept) Take 1 Tablet by mouth in the morning. Take with largest meal of the day.. 30 Tablet 2 3 023 Discontinued(Re fill) Potassium Chloride ER 10 MEQ Oral Capsule Extended Release take 1 capsule by mouth every morning and 1 capsule by mouth BEFORE BEDTIME 60 Capsule 5 3 023 Discontinued(Re fill) Mirtazapine 30 MG Oral Tablet (Remeron) Take 1.5 Tablets by mouth at bedtime. 45 Tablet 2 3 023 Discontinued Omeprazole 20 MG Oral Capsule Delayed Release (PriLOSEC) take 1 capsule by mouth IN THE MORNING and 1 capsule BEFORE BEDTIME 60 Capsule 5 3 023 Discontinued(Re fill) Warfarin Sodium 5 MG Oral Tablet (Coumadin)Indicati ons:Paroxysmal atrial fibrillation (HCC) Take 0.5-1 Tablets by mouth every evening. OR DIRECTED BY [facility] 90 Tablet 3 3 023 Discontinued Ramelteon 8 MG Oral Tablet (Rozerem) Take 1 Tablet by mouth at bedtime. 30 Tablet 1 3 023 Discontinued(Re fill) Furosemide 40 MG Oral Tablet (Lasix)Indications :Chronic diastolic CHF (congestive heart failure) (HCC) Take 1 Tablet by mouth in the morning and 1 Tablet before bedtime. 180 Tablet 3 3 023 Discontinued busPIRone HCl 10 MG Oral Tablet (Buspar) Take 2 Tablets by mouth in the morning and 2 Tablets before bedtime. 120 Tablet 2 3 023 Discontinued Metoprolol Succinate ER 25 MG Oral Tablet Extended Release 24 Hour (Toprol XL) Take 1 Tablet by mouth in the morning. 30 Tablet 11 3 023 Discontinued(Re fill) Vitamin D3 1.25 MG (77664 UT) Oral Capsule Take 1 Capsule by mouth once a week. 12 Capsule 0 3 023 Discontinued(Re fill) Acetaminophen-Code ine 300-30 MG Oral TabletIndications: Chronic bilateral low back pain without sciatica Take 1 Tablet by mouth every 6 hours as needed for Pain, Moderate. 120 Tablet 0 3 023 Discontinued(Re fill) Baclofen 10 MG Oral Tablet (Lioresal)Indicati ons:Chronic bilateral low back pain without sciatica Take 1 Tablet by mouth 3 times a day as needed for Muscle spasms. 90 Tablet 0 3 023 Discontinued LORazepam 0.5 MG Oral Tablet (Ativan) Take 1 Tablet by mouth every 8 hours as needed for Anxiety. 90 Tablet 0 3 023 Discontinued Hospital, Clinic, or Other Facility Administered Medication Ordered Dose Route Frequency Start Date End Date Status Albuterol Sulfate (Proventil) (2.5 MG/3ML) 0.083% inhalation solution 2.5 mgIndications:COPD, group D, by GOLD 2017 classification ([facility]) 2.5 mg NEBULIZER PRN 03/03/2023 03/02/2024 Acti ve Albuterol Sulfate (Proventil) (5 MG/ML) 0.5% *conc* inhalation solution 2.5 mgIndications:COPD, group D, by GOLD 2017 classification ([facility]) 2.5 mg NEBULIZER PRN 03/03/2023 03/02/2024 Acti ve documented as of this encounter (statuses as of 11/09/2023) Active Problems Problem Noted Date Diagnosed Date [...] as of this encounter (statuses as of 11/09/2023) Resolved Problems Problem Noted Date Diagnosed Date [...] defect 02/04/2006 009 Atrial septal aneurysm 02/04/200612/21 intermediate current use of ant icoagulant therapy 06/01/2005 [...] as of this encounter (statuses as of 11/09/2023) Immunizations Name Administration Dates Next Due H1N1 [...] Telephone Encounter - Gisel Giordano LPN - 08/11/2023 11:23 AM EDT Called Kimberly back to inform her of the conversation with Laura. Kimberly is going to wait an hour or two then contact the patient/granddaughters to discuss Hospice/Palliative. Explain the differences. A hospice nurse from [facility] can go see the patient today. Kimberly is going to call me back with an update. Total Time including non face to face (minutes): 10 * Telephone Encounter - Gisel Giordano LPN - 08/11/2023 10:31 AM EDT Provider to address: Reason for Call: Advice Contact: Telephone Call Contact Type: Information Outcome: I was notified Kimberly called for me. Called her back. [facility] has been active with franke 07/24. Patient wants to stick with [facility] instead of [facility]. Kimberly advised patients granddaughter Laura to contact [facility] to get her discharged [facility]. The plan is for [facility] to see her tomorrow, possibly today. Kimberly reported dizziness and doesn't feel well when she spoke with another [facility] nurse earlier. Unable to weigh herself, unsteady on her feet. Contacted patient, she is really dizziness, no appetite. When she does eat, she gets nausea and dryheaves. When she sits up the room spins and she has to lay down. "When I get up, I have to lay right back down or I'll fall" Drinking 24oz of water a day. Drinks 3 Boost daily. SOB has increased. O2 5lpm via nasal canula currently. SP O2 88% lying down. HR 102. Patient is agreeable to going to the ER. Laura is going to discuss going to the ER with Kimberly.She did encourage her this morning, but Kimberly didn't want to go at that time. Spoke with Laura, patients granddaughter. Her other grand daughter, Darlene is coming over this morning to discuss HH/Hospice/Palliative, they don't think they want to DC [facility] because they don't think [facility] will help her. Informed Laura that Palliative and Hospice are different. They thought the patient was going to be switching to hospice from the 07/27 appt, but they haven't heard anything about setting it up. Once the granddaughters discuss, she will call back with an update on how to proceed. Total Time including non face to face (minutes): 45 * Telephone Encounter - Gisel Giordano LPN - 08/11/2023 8:48 AM EDT Provider to address: HH Concerns [place], Calling from: [facility] Report/Concerns of: PT orders, INR level. Narrative: Kimberly., health club manager calling. [facility] received a PT referral, they are not able to see patients if their INR is >4.2. Confirmed INR with her >9.0 Kimberly is going to cancel the PT referral for now and once her INR is down, a new referral can be placed. Informed Kimberly that we got a call from [employer] yesterday. She asked if the patient is getting HH services and I informed her that there is 2 scanned [facility] report notes. She is going to contact [facility] to see if she is still getting services thru them, if so [facility] will notbe able to. Kimberly will call back once she finds out and will discuss a plan to proceed then. Reason for Call: Advice Contact: Telephone Call Contact Type: Care Coordination Total Time including non face to face (minutes): 10 * Telephone Encounter - Tamar Eli OSA - 08/10/2023 1:27 PM EDT Reason for patient's call: ronnie with [facility] asking to talk to a nurse Unable to reach nurse at time of call. Please call back to discuss documented in this encounter Plan of Treatment Upcoming Encounters Date Type Department Care Team (Late st Contact Info) Description 11/17/2023 9:30 AM EST [facility] [address] [place] [address] Sharmaine Johns PA-C [address] [place] [address] Kim Carrizales, Community Health M[employer] Fitting [address] [place] [address] 11/29/2023 3:30 PM EST Telemedicine Psychiatry, [facility] [address] [place] [address] Hugo Alcantara MD [address] [place] [address] 01/07/2024 1:30 PM EST Office Visit Cardiology, [facility] [address] [place] [address] Saray Muhammad CRNP [address] [place] [address] Scheduled Procedures Name Priority Associated Diagnoses Date/Ti [...] 02/16/2022 LUNG CANCER SCREENING - USE SMARTSET [id number] Completed 2023, 03/16/2022, 08/24/2018, Additional history exists [...] Agent Relationshi p Communication Laura Gant Adult [facility] Health Optical Worker resentative (appointed verbally by patient or by statute hierarchy) Darlene Gilbert [facility] Health Optical Worker resentative (appointed verbally by patient or by statute hierarchy) Care Teams Patient Transition Specialist Relationship Specialty Start Date End Date Roger Alexandra MD [address] [place] [address] PCP - General Family Medicine 12/29/19 documented as of this encounter
--- OUTSIDE RECORDS SUMMARY | 2023-11-16 19:19 | External Medical Summary | Summary of Care ---
Author Name Unknown Organization [facility] Address [address] [place] [address] Phone [phone] Care Team Providers Care Opticianry Teacher Name Role Phone Roger Alexandra MD Primary Care Provider [phone] Reason for Visit * Reason Onset Date Comments Follow Up 10/19/2023 Encounter Details Date Type Department Care Team (Late st Contact Info) Description 10/19/2023 Telephone Care Coordination and Integration [address] [place] [address] Vanessa Nam Community Health Orchestrator [address] [place], [place] [id number] Follow Up Allergies Active Allergy Reactions Criticality Noted Date Comments Aspirin Unknown 12/12/2007 von Willebrand's disease Salicylates 03/01/2000 von Willebrand's disease documented as of this encounter (statuses as of 10/19/2023) Medications Medication Sig Dispensed Refills Start Date [...] mL 12 10/23/2022 Active Additional Information Patient taking differently:1 Vial [...] wheezing. J44.9 90 mL 3 03/18/2023 Active Nystatin 774280 UNIT/GM External Powder (Nyamyc) apply to affected area twice a day 60 g 1 05/10/2023 Active Isosorbide Mononitrate ER 30 MG Oral Tablet Extended Release 24 Hour (Imdur) take 1 tablet by mouth once daily 30 Tablet 5 07/07/2023 Active ProAir HFA 108 (90 Base) MCG/ACT Inhalation Aerosol SolutionIndications: Bronchitis, complicated Inhale 2 Puffs by mouth in the morning and 2 Puffs at noon and 2 Puffs in the evening and 2 Puffs before bedtime. 18 g 5 07/13/2023 Active Baclofen 10 MG Oral Tablet (Lioresal)Indication s:Chronic bilateral low back pain without sciatica Take 1 Tablet by mouth 3 times a day as needed for Muscle spasms. 90 Tablet 0 07/30/2023 Active Solifenacin Succinate 10 MG Oral Tablet (VESIcare) Take 1 Tablet by mouth in the morning. 30 Tablet 1 08/24/2023 Active Acetaminophen-Codein e 300-30 MG Oral TabletIndications:Ch ronic bilateral low back pain without sciatica Take 1 Tablet by mouth every 6 hours as needed for Pain, Moderate. 120 Tablet 0 09/07/2023 Active Vitamin D3 25 MCG (1000 UT) Oral Capsule Take by mouth. 0 Active traMADol HCl (ER Biphasic) 100 MG Oral Capsule Extended Release 24 Hour Take 1 Capsule by mouth every 8 hours as needed for Pain, Severe. 0 Active Incruse Ellipta 62.5 MCG/ACT Inhalation Aerosol Powder Breath Activated (umeclidinium [place]) Inhale 1 Puff by mouth in the [...] before October 04, 2023. 120 Tablet 1 10/04/2023 Active Furosemide 40 MG Oral Tablet (Lasix)Indications:C hronic diastolic CHF (congestive heart failure) (HCC) take 1 tablet by mouth twice a day 60 Tablet 0 10/09/2023 Active Sertraline HCl 50 MG Oral Tablet (Zoloft) take 1 tablet by mouth once daily 30 Tablet 0 10/09/2023 Active Mirtazapine 30 MG Oral Tablet (Remeron) take 1 tablet by mouth at bedtime 30 Tablet 0 10/09/2023 Active Donepezil HCl 5 MG Oral Tablet (Aricept) Take 1 Tablet by mouth in the morning. Take with largest meal of the day.. 30 Tablet 0 10/09/2023 Active Metoprolol Succinate ER 25 MG Oral Tablet Extended Release 24 Hour (Toprol XL) Take 1 Tablet by mouth in the morning. 30 Tablet 0 10/09/2023 Active Ramelteon 8 MG Oral Tablet (Rozerem) Take 1 Tablet by mouth at bedtime. 30 Tablet 0 10/09/2023 Active Omeprazole 20 MG Oral Capsule Delayed Release (PriLOSEC) Take 1 Capsule by mouth in the morning and 1 Capsule before bedtime. 60 Capsule 0 10/09/2023 Active Potassium Chloride ER 10 MEQ Oral Capsule Extended Release take 1 capsule by mouth every morning and 1 capsule by mouth BEFORE BEDTIME 60 Capsule 0 10/09/2023 Active Montelukast Sodium 10 MG Oral Tablet (Singulair) Take 1 Tablet by mouth at bedtime. 30 Tablet 0 10/09/2023 Active Vitamin D3 1.25 MG (61454 UT) Oral Capsule Take 1 Capsule by mouth once a week. 4 Capsule 0 10/09/2023 Active Hospital, Clinic, or Other Facility Administered [...] as of this encounter (statuses as of 10/19/2023) Active Problems Problem Noted Date Diagnosed Date [...] as of this encounter (statuses as of 10/19/2023) Resolved Problems Problem Noted Date Diagnosed Date [...] defect 02/04/2006 009 Atrial septal aneurysm 02/04/200612/21 snf current use of ant icoagulant therapy 06/01/2005 [...] as of this encounter (statuses as of 10/19/2023) Immunizations Name Administration Dates Next Due H1N1 2009 Influenza, IM 12/19/2009 Pneumococcal Polysaccharide PPV23 (Pneumovax) 03/20/2009 SEASONAL INFLUENZA, PF, 6 M & Above, IM , (FLULAVAL or FLUZONE) 08/28/2022,11/11/2021 Seasonal Influenza Virus Vac cine, Unspecified Formulation 11/11/2021,09/15/2020,10/03/2017,08/21,08/01/2014,07/30/2014,08/09/2013 ,08/03/2012,08/24/2011,08/06/2010,02/2010,09/20/2007,09/04/2003 Seasonal Influenza, Quadriva lent, No Preserve, IM [...] encounter Miscellaneous Notes * Telephone Encounter - Vanessa Nam Community Health Orchestrator - 10/19/2023 2:27 PM EST EMERSON Phone Contact: General Call for: Tier: 2 -Patient identity verified by full name and . -In the last month, have you had any open areas in your skin? no. -Are you a diabetic? no. -Do you have any new problems with walking? no -Have you had any falls since the last time your Hvac Commercial Salesperson spoke to you? no -Since your Hvac Commercial Salesperson last spoke to you, do you have any new pain issues? Left hip pain and headaches. Takes tylenol with codeine but it doesn't help. -Are there other changes in your health that you would like to talk to your nurse about? no -Would you like your nurse to contact you this week? yes All abnormal responses were communicated to primary or covering CM for follow up. Vanessa Nam [facility] documented in this encounter Plan of Treatment Upcoming Encounters Date Type Department Care Team (Late st Contact Info) Description 11/17/2023 9:30 AM EST [facility] [address] [place] [address] Sharmaine Johns PA-C [address] [place] [address] Kim Carrizales Community Health Orchestrator [address] [place], [place] [phone] 11/29/2023 3:30 PM EST Telemedicine Psychiatry, [address] [address] Hugo Alcantara MD [address] [place], [place] [id number] 01/07/2024 1:30 PM EST Office Visit Cardiology, [facility] [address] [place] [address] Saray Muhammad CRNP [address] [place] [address] Scheduled Procedures Name Priority Associated Diagnoses Date/Ti [...] ASSESSMENT COMPLETED IN PAST YEAR FOR COPD 10/08/2024 10/08/2023 COLONOSCOPY-EVERY 5 YRS AGES 18-100 01/14/2028 01/13/2023, 01/13/2023, 11/12/2020, Additional history exists Lipid Panel 03/09/2028 03/09/2023, 08/15, 09/25/2015, Additional history exists Alpha-1 Antitrypsin Completed 02/16/2022 LUNG CANCER SCREENING - USE SMARTSET 20798 Completed 2023, 03/16/2022, 08/24/2018, Additional history exists [...] Agent Relationshi p Communication Laura Gant Adult [facility] Head Orthopedic Team Physician resentative (appointed verbally by patient or by statute hierarchy) Darlene Gilbert Adult [facility] Head Orthopedic Team Physician resentative (appointed verbally by patient or by statute hierarchy) Care Teams Opticianry Teacher Relationship Specialty Start Date End Date Roger Alexandra MD [address] [address] PCP - General Family Medicine 12/29/19 documented as of this encounter
--- OUTSIDE RECORDS SUMMARY | 2023-11-16 19:19 | External Medical Summary | Summary of Care ---
Author Name Unknown Organization [facility] Address [address] [place] [address] Phone [phone] Care Team Providers Care Access Database Developer Name Role Phone Roger Alexandra MD Primary Care Provider [phone] [phone] Reason for Visit * Reason Onset Date Comments Information 10/29/2023 Encounter Details Date Type Department Care Team (Late st Contact Info) Description 10/29/2023 Telephone [facility] [place] [address] [place], [place] [phone] Services, Scheduling [address] [place] [address] Information (///) Allergies Active Allergy Reactions Criticality Noted Date Comments Aspirin Unknown 12/12/2007 von Willebrand's disease Salicylates 03/01/2000 von Willebrand's disease documented as of this encounter (statuses as of 10/29/2023) Medications Medication Sig Dispensed Refills Start Date [...] PD, group D, by GOLD 2017 classification ([facility]),Chronic hypoxemic respiratory failure ([facility]) Use with nebulized meds 1 Each 0 09/16/2022 Active Full Kit Nebulizer SetIndications:COPD, group D, by GOLD 2017 classification ([facility]),Chronic hypoxemic respiratory failure ([facility]) Use with nebulizer 1 Each [...] J44.9 90 mL 3 03/18/2023 Active Nystatin 165367 UNIT/GM External Powder (Nyamyc) apply to affected [...] MCG/ACT Inhalation Aerosol Powder Breath Activated (umeclidinium [place]) Inhale 1 Puff by mouth in the [...] 0 10/09/2023 Active Vitamin D3 1.25 MG (04762 UT) Oral Capsule Take 1 Capsule by mouth once a week. 4 Capsule 0 10/09/2023 Active Hospital, Clinic, or Other Facility Administered Medication Ordered Dose Route Frequency Start Date End Date Status Albuterol Sulfate (Proventil) (2.5 MG/3ML) 0.083% inhalation solution 2.5 mgIndications:COPD, group D, by GOLD 2017 classification ([facility]) 2.5 mg NEBULIZER PRN 03/03/2023 03/02/2024 Acti ve Albuterol Sulfate (Proventil) (5 MG/ML) 0.5% *conc* inhalation solution 2.5 mgIndications:COPD, group D, by GOLD 2017 classification ([facility]) 2.5 mg NEBULIZER PRN 03/03/2023 03/02/2024 Acti ve documented as of this encounter (statuses as of 10/29/2023) Active Problems Problem Noted Date Diagnosed Date [...] as of this encounter (statuses as of 10/29/2023) Resolved Problems Problem Noted Date Diagnosed Date [...] defect 02/04/2006 009 Atrial septal aneurysm 02/04/200612/21 custodial current use of ant icoagulant therapy 06/01/2005 [...] as of this encounter (statuses as of 10/29/2023) Immunizations Name Administration Dates Next Due H1N1 2009 Influenza, IM 12/19/2009 Pneumococcal Polysaccharide PPV23 (Pneumovax) 03/20/2009 Seasonal Influenza Virus Vac cine, Unspecified Formulation 11/11/2021,09/15/2020,10/03/2017,08/21,08/01/2014,07/30/2014,08/09/2013 ,08/03/2012,08/24/2011,08/06/2010,02/0 02/2010,09/20/2007,09/04/2003 Seasonal Influenza, PF, 6 M & above, [...] encounter Miscellaneous Notes * Telephone Encounter - Steff Duenas OSA - 10/29/2023 8:53 AM EST Request for cold visit to be scheduled at 1130 today by [facility] documented in this encounter Plan of Treatment Upcoming Encounters Date Type Department Care Team (Late st Contact Info) Description 10/29/2023 11:30 AM EST Home Visit Care Coordination and Integration [address] [place] [address] Kim Carrizales Community Health Division Officer Weapons Department [address] [place] [address] 11/17/2023 9:30 AM EST Telemedicine [facility], [place] [address] [place] [address] Sharmaine Johns PA-C [address] [place] [address] Kim Carrizales, Community Health Division Officer Weapons Department [address] [place] [address] 11/29/2023 3:30 PM EST Telemedicine Psychiatry, [facility] [address] [place] [address] Hugo Alcantara MD [address] [place] [address] 01/07/2024 1:30 PM EST Office Visit Cardiology, [facility] [address] [place] [address] Saray Muhammad CRNP [address] [place] [address] Scheduled Procedures Name Priority Associated Diagnoses Date/Ti [...] 02/16/2022 LUNG CANCER SCREENING - USE SMARTSET 91782 Completed 2023, 03/16/2022, 08/24/2018, Additional history exists [...] Relationship Healthcare Agent Relationshi p Communication Laura Stalin [facility] Health Electron Microprobe Operator resentative (appointed verbally by patient or by statute hierarchy) Darlene Gilbert [facility] Health Electron Microprobe Operator resentative (appointed verbally by patient or by statute hierarchy) Care Teams Access Database Developer Relationship Specialty Start Date End Date Roger Alexandra MD [address] [address] PCP - General Family Medicine 12/29/19 documented as of this encounter
--- OUTSIDE RECORDS SUMMARY | 2023-11-16 19:19 | External Medical Summary | Summary of Care ---
Author Name Unknown Organization [facility] Address [address] [place] [address] Phone [phone] Care Team Providers Care Dealer Sales Rep Name Role Phone Roger Alexandra MD Primary Care Provider [phone] Encounter Details Date Type Department Care Team (Late st Contact Info) Description 10/29/2023 11:30 AM EST Home Visit Care Coordination and Integration [address] [place], [place] [phone] Kim Carrizales, Community Health Asset Card Clerk [address] [place], [place] [phone] Allergies Active Allergy Reactions Criticality Noted Date [...] J44.9 90 mL 3 03/18/2023 Active Nystatin 548480 UNIT/GM External Powder ([facility]) apply to affected area twice a [...] MCG/ACT Inhalation Aerosol Powder Breath Activated (umeclidinium [place]) Inhale 1 Puff by mouth in the [...] 0 10/09/2023 Active Vitamin D3 1.25 MG (46882 UT) Oral Capsule Take 1 Capsule by [...] defect 02/04/2006 009 Atrial septal aneurysm 02/04/200612/21 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 When EMERSON arrived door was open and EMERSON left herself in and announced who was there. Patient was in the bathroom and reported that she has had diarrhea for the past three days. EMERSON explained that she was there to check her vitals and her meds. Patient reported that she did not want to go to the hospital. She was very depressed and is not wanting to leave her room. Patient reported that she stunk because he has not had a shower since last week due katelyn one available to help her. EMERSON suggested going into a personal [place] [facility] facility since her granddaughters have not been able to help her like she needs. Patient was unsure about that and asked EMERSON for thoughts. EMERSON offered to reach out to granddaughter Laura and talk to her about what EMERSON and patient talked about and patient was okay with this. Patient lives there alone. Patient is not having any thoughts of hurting herself. Granddaughter fills her med minder and this was filled and todays AM medswere taken. Patient reported that she is taking her meds however did not know if her depression meds were helping her. EMERSON suggested setting up an appointment with behavioral health. Patient had no response. Kim Carrizales- EMERSON Support Services/[facility] [email or web address] documented in this encounter Plan of Treatment Upcoming Encounters Date Type Department Care Team (Late st Contact Info) Description 11/17/2023 9:30 AM EST Telemedicine [facility] [place] [address] [place] [address] Sharmaine Johns PA-C [address] [place] [address] Kim Carrizales, Community Health Asset Card Clerk [address] [place] [address] 11/29/2023 3:30 PM EST Telemedicine Psychiatry, [address] [address] Hugo Alcantara MD [address] [facility] [place] [address] 01/07/2024 1:30 PM EST Office Visit Cardiology, [facility] [address] [place] [address] Saray Muhammad CRNP [address] [place] [address] Scheduled Procedures Name Priority Associated Diagnoses Date/Ti [...] COMPLETED IN PAST YEAR FOR COPD 10/08/2024 10/29/2023 COLONOSCOPY-EVERY 5 YRS AGES 18-100 01/14/2028 01/13/2023, 01/13/2023, 11/12/2020, Additional history exists Lipid Panel 03/09/2028 03/09/2023, 08/15, 09/25/2015, Additional history exists Alpha-1 Antitrypsin Completed 02/16/2022 LUNG CANCER SCREENING - USE SMARTSET 70347 Completed 2023, 03/16/2022, 08/24/2018, Additional history exists [...] Healthcare Agent Relationshi p Communication Laura Gant [facility] Rep resentative (appointed verbally by patient or by statute hierarchy) Darlene Gilbert [facility] Health Medical Review Coordinator resentative (appointed verbally by patient or by statute hierarchy) Care Teams Dealer Sales Rep Relationship Specialty Start Date End Date Roger Alexandra MD [address] [phone] PCP - General Family Medicine 12/29/19 documented as of this encounter
--- OUTSIDE RECORDS SUMMARY | 2023-11-16 19:19 | External Medical Summary | Summary of Care ---
Author Name Unknown Organization [facility] Address [address] [place] [address] Phone [phone] Care Team Providers Care Oracle Scm Consultant Name Role Phone Roger Alexandra MD Primary Care Provider [phone] [phone] Encounter Details Date Type Department Care Team (Late st Contact Info) Description 10/29/2023 11:30 AM EST Home Visit Care Coordination and Integration [address] [place], [place] [phone] Kim Carrizales, Community Health Licensed Midwife [address] [place], [place] [phone] Allergies Active Allergy Reactions Criticality Noted Date [...] J44.9 90 mL 3 03/18/2023 Active Nystatin 172147 UNIT/GM External Powder ([facility]) apply to affected area twice [...] MCG/ACT Inhalation Aerosol Powder Breath Activated (umeclidinium [place]) Inhale 1 Puff by mouth in the [...] 0 10/09/2023 Active Vitamin D3 1.25 MG (27188 UT) Oral Capsule Take 1 Capsule by [...] 02/04/2006 009 Atrial septal aneurysm 02/04/200612/21 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 EMERSON suggested going into a personal assisted since her granddaughters have not been able [...] Kim Carrizales- EMERSON Support Services/[facility] [employer] [facility] [email or web address] documented in this encounter Plan of Treatment Upcoming Encounters Date Type Department Care Team (Late st Contact Info) Description 11/17/2023 9:30 AM EST Telemedicine [facility], [place] [address] [place] [address] Sharmaine Johns PA-C [address] [place] [address] Kim Carrizales, Community Health Licensed Midwife [address] [place] [address] 11/29/2023 3:30 PM EST Telemedicine Psychiatry, [address] [address] Hugo Alcantara MD [address] [facility] [place] [address] 01/07/2024 1:30 PM EST Office Visit Cardiology, [facility] [address] [place] [address] Saray Muhammad CRNP [address] [place] [address] Scheduled Procedures Name Priority Associated Diagnoses Date/Ti [...] 02/16/2022 LUNG CANCER SCREENING - USE SMARTSET 64015 Completed 2023, 03/16/2022, 08/24/2018, Additional history exists [...] Healthcare Agent Relationshi p Communication Laura Gant [facility] Rep resentative (appointed verbally by patient or by statute hierarchy) Darlene Gilbert [facility] Health Rivet Spinner resentative (appointed verbally by patient or by statute hierarchy) Care Teams Oracle Scm Consultant Relationship Specialty Start Date End Date Roger Alexandra MD [address] [address] PCP - General Family Medicine 12/29/19 documented as of this encounter
--- OUTSIDE RECORDS SUMMARY | 2023-11-16 19:19 | External Medical Summary | Summary of Care ---
Author Name Unknown Organization [facility] Address [address] [facility] [address] Phone [phone] Care Team Providers Care Weapons And Tactics Instructor Name Role Phone Roger Alexandra MD Primary Care Provider [phone] Reason for Visit * Reason Onset Date Comments Advice 10/22/2023 Encounter Details Date Type Department Care Team (Late st Contact Info) Description 10/22/2023 Telephone Family Practice [facility] [address] [place] [address] Roger Alexandra MD [address] [place] [address] Advice Allergies Active Allergy Reactions Criticality Noted Date Comments Aspirin Unknown 12/12/2007 von Willebrand's disease Salicylates 03/01/2000 von Willebrand's disease documented as of this encounter (statuses as of 10/22/2023) Medications Medication Sig Dispensed Refills Start Date [...] J44.9 90 mL 3 03/18/2023 Active Nystatin 299379 UNIT/GM External Powder (Nyamyc) apply to affected [...] MCG/ACT Inhalation Aerosol Powder Breath Activated (umeclidinium [place]) Inhale 1 Puff by mouth in the [...] 0 10/09/2023 Active Vitamin D3 1.25 MG (17146 UT) Oral Capsule Take 1 Capsule by mouth once a week. 4 Capsule 0 10/09/2023 Active Hospital, Clinic, or Other Facility Administered Medication Ordered Dose Route Frequency Start Date End Date Status Albuterol Sulfate (Proventil) (2.5 MG/3ML) 0.083% inhalation solution 2.5 mgIndications:COPD, group D, by GOLD 2017 classification ([facility]) 2.5 mg NEBULIZER PRN 03/03/2023 03/02/2024 Acti ve Albuterol Sulfate (Proventil) (5 MG/ML) 0.5% *conc* inhalation solution 2.5 mgIndications:COPD, group D, by GOLD 2017 classification ([facility]) 2.5 mg NEBULIZER PRN 03/03/2023 03/02/2024 Acti ve documented as of this encounter (statuses as of 10/22/2023) Active Problems Problem Noted Date Diagnosed Date [...] as of this encounter (statuses as of 10/22/2023) Resolved Problems Problem Noted Date Diagnosed Date [...] defect 02/04/2006 009 Atrial septal aneurysm 02/04/200612/21 prison current use of ant icoagulant therapy 06/01/2005 [...] as of this encounter (statuses as of 10/22/2023) Immunizations Name Administration Dates Next Due H1N1 [...] Telephone Encounter - Nissa Richter LPN - 10/22/2023 4:06 PM EST Faxed DME as requested to [facility] for humidification for O2 * Telephone Encounter - Mallory Sanchez OSA - 10/22/2023 9:09 AM EST An order was requested for this patient. Name of Requesting Provider: Damon Johnson physical therapist Order Requested: humidifier Diagnosis/Reason for Request: oxygen machine If order request is for Mammogram: Is the patient having any breast symptoms? N/A Is there a chance of ? N/A Has the patient had any breast problems in the past? NA What location AND department does the patient wish to have their order completed at? [facility] Fax Number, if applicable: [phone] Call Back Number: [phone] If the caller is not a current patient, please advise the patient to call their current PCP to havethe order's prior to being seen in our office. The patient was informed that our providers would not order anything (medication, labs, etc.) prior to being seen. documented in this encounter Plan of Treatment Upcoming Encounters Date Type Department Care Team (Late st Contact Info) Description 11/17/2023 9:30 AM EST Telemedicine ising at [facility] [address] [place] [address] Sharmaine Johns PA-C [address] [place] [address] Kim Carrizales, Community Health Bean Sprout Grower [address] [place] [address] 11/29/2023 3:30 PM EST Telemedicine Psychiatry, [address] [address] Hugo Alcantara MD [address] [place] [address] 01/07/2024 1:30 PM EST Office Visit Cardiology, [facility] [address] [facility] [address] Saray Muhammad CRNP [address] [facility] [address] Scheduled Procedures Name Priority Associated Diagnoses Date/Ti [...] 02/16/2022 LUNG CANCER SCREENING - USE SMARTSET 89065 Completed 2023, 03/16/2022, 08/24/2018, Additional history exists [...] oxygen documented in this encounter Advance Directives Healthcare Agents on File Name Relationship Healthcare Agent Relationshi p Communication Laura Gant Adult [facility] Health Real Estate Operations Manager resentative (appointed verbally by patient or by statute hierarchy) Darlene Gilbert Adult [facility] Health Real Estate Operations Manager resentative (appointed verbally by patient or by statute hierarchy) Care Teams Weapons And Tactics Instructor Relationship Specialty Start Date End Date Roger Alexandra MD [address] [place] [address] PCP - General Family Medicine 12/29/19 documented as of this encounter
--- OUTSIDE RECORDS SUMMARY | 2023-11-16 19:19 | External Medical Summary | Summary of Care ---
Author Name Unknown Organization [facility] Address [address] [place] [address] Phone [phone] Care Team Providers Care Multi Line Claims Adjuster Name Role Phone Roger Alexandra MD Primary Care Provider [phone] Reason for Visit * Reason Onset Date Comments Appointment 10/23/2023 Encounter Details Date Type Department Care Team (Late st Contact Info) Description 10/23/2023 [facility] [address] [place], [place] [id number] Services, Scheduling [address] [place] [address] Appointment (//) Allergies Active Allergy Reactions Criticality Noted Date Comments Aspirin Unknown 12/12/2007 von Willebrand's disease Salicylates 03/01/2000 von Willebrand's disease documented as of this encounter (statuses as of 10/23/2023) Medications Medication Sig Dispensed Refills Start Date [...] [facility]),Chronic hypoxemic respiratory failure ([facility]) Use with nebulized meds 1 Each 0 09/16/2022 Active Full Kit Nebulizer SetIndications:COPD, group D, by GOLD 2017 classification ([facility]),Chronic hypoxemic respiratory failure ([facility]) Use with nebulizer 1 Each 0 [...] J44.9 90 mL 3 03/18/2023 Active Nystatin 051857 UNIT/GM External Powder (Nyamyc) apply to affected [...] MCG/ACT Inhalation Aerosol Powder Breath Activated (umeclidinium [place]) Inhale 1 Puff by mouth in the [...] 0 10/09/2023 Active Vitamin D3 1.25 MG (60885 UT) Oral Capsule Take 1 Capsule by mouth once a week. 4 Capsule 0 10/09/2023 Active Hospital, Clinic, or Other Facility Administered Medication Ordered Dose Route Frequency Start Date End Date Status Albuterol Sulfate (Proventil) (2.5 MG/3ML) 0.083% inhalation solution 2.5 mgIndications:COPD, group D, by GOLD 2017 classification ([facility]) 2.5 mg NEBULIZER PRN 03/03/2023 03/02/2024 Acti ve Albuterol Sulfate (Proventil) (5 MG/ML) 0.5% *conc* inhalation solution 2.5 mgIndications:COPD, group D, by GOLD 2017 classification ([facility]) 2.5 mg NEBULIZER PRN 03/03/2023 03/02/2024 Acti ve documented as of this encounter (statuses as of 10/23/2023) Active Problems Problem Noted Date Diagnosed Date [...] as of this encounter (statuses as of 10/23/2023) Resolved Problems Problem Noted Date Diagnosed Date [...] defect 02/04/2006 009 Atrial septal aneurysm 02/04/200612/21 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 06/01/2005 [...] as of this encounter (statuses as of 10/23/2023) Immunizations Name Administration Dates Next Due H1N1 [...] encounter Miscellaneous Notes * Telephone Encounter - Edis Bee OSA - 10/23/2023 1:58 PM EST Call to pt and no answer and vm is full, call to sonvitaliy and confirmed return kaco telemed for 11/17/23 at 930/10am, he will make his mother aware of appt documented in this encounter Plan of Treatment Upcoming Encounters Date Type Department Care Team (Late st Contact Info) Description 11/17/2023 9:30 AM EST Telemedicine [facility], [address] [address] Sharmaine Johns PA-C [address] [place] [address] Kim Carrizales, Community Health Waistband Setter [address] [place] [address] 11/29/2023 3:30 PM EST Telemedicine Psychiatry, [facility] [address] [place] [address] Hugo Alcantara MD [address] [place] [address] 01/07/2024 1:30 PM EST Office Visit Cardiology, [facility] [address] [place] [address] Saray Muhammad CRNP [address] [place] [address] Scheduled Procedures Name Priority Associated Diagnoses Date/Ti [...] 02/16/2022 LUNG CANCER SCREENING - USE SMARTSET 03022 Completed 2023, 03/16/2022, 08/24/2018, Additional history exists [...] Agent Relationshi p Communication Laura Gant Adult [facility] Health Spring Fitter Helper resentative (appointed verbally by patient or by statute hierarchy) Darlene Gilbert Adult [facility] Health Spring Fitter Helper resentative (appointed verbally by patient or by statute hierarchy) Care Teams Multi Line Claims Adjuster Relationship Specialty Start Date End Date Roger Alexandra MD [address] [place] [address] PCP - General Family Medicine 12/29/19 documented as of this encounter
--- OUTSIDE RECORDS SUMMARY | 2023-11-16 19:20 | External Medical Summary | Summary of Care ---
Author Name Unknown Organization [facility] Address [address] [facility] [place] [address] Phone [phone] Care Team Providers Care Fruit Loader Name Role Phone Roger Alexandra MD Primary Care Provider [phone] Reason for Visit * Reason Onset Date Comments Order Request 10/08/2023 Encounter Details Date Type Department Care Team (Late st Contact Info) Description 10/08/2023 Telephone Family Practice [facility] [address] [place] [address] Roger Alexandra MD [address] [place] [address] Order Request Allergies Active Allergy Reactions Criticality Noted Date Comments Aspirin Unknown 12/12/2007 von Willebrand's disease Salicylates 03/01/2000 von Willebrand's disease documented as of this encounter (statuses as of 10/09/2023) Medications Medication Sig Dispensed Refills Start Date [...] PD, group D, by GOLD 2017 classification ([facility]),Chronic hypoxemic respiratory failure ([facility]) Use with nebulized meds 1 [...] of Breath,Taking once daily, Reported on 09/15/2023 Donepezil HCl 5 MG Oral Tablet (Aricept) [...] at bedtime. 45 Tablet 2 03/17/2023 Active Additional Information Patient taking differently: 30 mgOral HS, Reported on 09/15/2023 Vitron-C 65-125 MG Oral [...] BEFORE BEDTIME 60 Capsule 5 04/05/2023 Active Nystatin 319553 UNIT/GM External Powder (Nyamyc) apply to affected area twice a day 60 g 1 05/10/2023 Active Ramelteon 8 MG Oral Tablet (Rozerem) Take 1 Tablet by mouth at bedtime. 30 Tablet 1 05/24/2023 Active Furosemide 40 MG Oral Tablet (Lasix)Indications:C hronic diastolic CHF (congestive heart failure) (HCC) Take 1 Tablet by mouth in the morning and 1 Tablet before bedtime. 180 Tablet 3 06/21/2023 Active Additional Information Patient taking differently:40 mg OralDaily(AM), Taking once a day, Reported on 10/08/2023 Isosorbide Mononitrate ER 30 MG Oral Tablet Extended Release 24 Hour (Imdur) take 1 tablet by mouth once daily 30 Tablet 5 07/07/2023 Active Metoprolol Succinate ER 25 MG Oral Tablet Extended Release 24 Hour (Toprol XL) Take 1 Tablet by mouth in the morning. 30 Tablet 11 07/07/2023 Active Vitamin D3 1.25 MG (44382 UT) Oral Capsule Take 1 Capsule by mouth once a week. 12 Capsule 0 07/13/2023 Active Additional Information Patient not taking.Reported on 09/15/2023 ProAir HFA 108 (90 Base) MCG/ACT Inhalation [...] as needed for Pain, Severe. 0 Active Montelukast Sodium 10 MG Oral Tablet (Singulair) Take 1 Tablet by mouth at bedtime. 0 Active Incruse Ellipta 62.5 MCG/ACT Inhalation Aerosol Powder Breath Activated (umeclidinium [place]) Inhale 1 Puff by mouth in the morning. 0 Active Probiotic & Acidophilus Ex St Oral Capsule Take 2 Capsules by mouth every evening. 0 Active Apixaban 5 MG Oral Tablet (Eliquis) Take 1 Tablet by mouth in the morning and 1 Tablet before bedtime. 0 Active Sertraline HCl 50 MG Oral Tablet (Zoloft) Take 1 Tablet by mouth in the morning. 0 Active LORazepam 0.5 MG Oral Tablet (Ativan) Take 1 Tablet by mouth every 6 hours as needed for Anxiety. Do not start before October 04, 2023. 120 Tablet 1 10/04/2023 Active Hospital, Clinic, or Other Facility Administered Medication Ordered Dose Route Frequency Start Date End Date Status Albuterol Sulfate (Proventil) (2.5 MG/3ML) 0.083% inhalation solution 2.5 mgIndications:COPD, group D, by GOLD 2017 classification ([facility]) 2.5 mg NEBULIZER PRN 03/03/2023 03/02/2024 Acti ve Albuterol Sulfate (Proventil) (5 MG/ML) 0.5% *conc* inhalation solution 2.5 mgIndications:COPD, group D, by GOLD 2017 classification ([facility]) 2.5 mg NEBULIZER PRN 03/03/2023 03/02/2024 Acti ve documented as of this encounter (statuses as of 10/09/2023) Active Problems Problem Noted Date Diagnosed Date [...] as of this encounter (statuses as of 10/09/2023) Resolved Problems Problem Noted Date Diagnosed Date [...] defect 02/04/2006 009 Atrial septal aneurysm 02/04/200612/21 [facility] current use of ant icoagulant therapy 06/01/2005 03/05/2021 Overview: ICD-10 update of inactive term Carotid stenosis, non-symptomatic 03/16/2005 03/14/2007 Medical home patient encounter 07/31/2004 07/27/2023 CVA 07/31/2004 02/28/2009 Overview: Modified per CVA protocol #8 ATRIAL SEPTAL ANEURYSM(aka ANEURYSM) 07/31/2004 02/04/2006 Malaise and fatigue 03/07/2004 05/01/20 11 Back disorder 03/07/2004 05/02/2012 Mixed dyslipidemia 03/07/2004 12/ 9 Overview: Per Lipid Taxonomy. CEREBROVASC DISEASE NEC 02/01/200412/16 Pelvic pain in female 03/26/20032019 OBESITY, UNSPECIFIED 07/19/2002 010 Overview: Per Obesity Taxonomy EXT ASTHMA W-O STAT ASTH Tobacco use disorder 021 documented as of this encounter (statuses as of 10/09/2023) Immunizations Name Administration Dates Next Due H1N1 [...] Encounter - Angela May MED ASSIST - 10/08/2023 3:42 PM EST Ordered and faxed. * Telephone Encounter - Kim Contreras OSA - 10/08/2023 2:53 PM EST An order was requested for this patient. Name of Requesting Provider: Jarred from [facility] Order Requested: Toilet Safety Frame Rails; Tub transfer bench with swivel seat Diagnosis/Reason for Request: easier for patient transfer due to mobility issues and for safety forthe patient If order request is for Mammogram: Is the patient having any breast symptoms? N/A Is there a chance of ? N/A Has the patient had any breast problems in the past? NA What location AND department does the patient wish to have their order completed at? [facility] Fax Number, if applicable: Call Back Number: [phone] If the caller is not a current [...] Care Team (Late st Contact Info) Description 11/29/2023 3:30 PM EST Telemedicine Psychiatry, [address] [address] Hugo Alcantara MD [address] [place] [address] 01/07/2024 1:30 PM EST Office Visit Cardiology, [facility] [address] [place] [address] Saray Muhammad CRNP [address] [place] [address] Scheduled Procedures Name Priority Associated [...] 02/16/2022 LUNG CANCER SCREENING - USE SMARTSET 06917 Completed 2023, 03/16/2022, 08/24/2018, Additional history exists [...] involving nervous and musculoskeletal systems History of multiple strokes Chronic hypoxemic respiratory failure (HCC) Chronic respiratory failure documented in this encounter Advance Directives Healthcare Agents on File Name Relationship Healthcare Agent Relationshi p Communication [facility] Rep resentative (appointed verbally by patient or by statute hierarchy) Darlene Gilbert Adult [facility] In Classroom Tutor resentative (appointed verbally by patient or by statute hierarchy) Care Teams Fruit Loader Relationship Specialty Start Date End Date Roger Alexandra MD [address] [place] [address] PCP - General Family Medicine 12/29/19 documented as of this encounter
--- OUTSIDE RECORDS SUMMARY | 2023-11-16 19:20 | External Medical Summary | Summary of Care ---
Author Name Unknown Organization [facility] Address [address] [place] [facility] [place] [address] Phone [phone] Care Team Providers Care Information Technology Security Analyst Name Role Phone Roger Alexandra MD Primary Care Provider [phone] Reason for Visit * Reason Onset Date Comments Medication Refill 10/09/2023 Encounter Details Date Type Department Care Team (Late st Contact Info) Description 10/09/2023 Telephone Family Practice [facility] [address] [place] [address] Roger Alexandra MD [address] [place] [address] Medication Refill Allergies Active Allergy Reactions Criticality Noted Date [...] J44.9 90 mL 3 03/18/2023 Active Nystatin 991885 UNIT/GM External Powder (Nyamyc) apply to affected [...] MCG/ACT Inhalation Aerosol Powder Breath Activated (umeclidinium [place]) Inhale 1 Puff by mouth in the [...] 0 10/09/2023 Active Vitamin D3 1.25 MG (62201 UT) Oral Capsule Take 1 Capsule by [...] defect 02/04/2006 009 Atrial septal aneurysm 02/04/200612/21 jail current use of ant icoagulant therapy 06/01/2005 [...] encounter Miscellaneous Notes * Telephone Encounter - Arlene Steel MED ASSIST - 10/09/2023 3:26 PM EST Spoke with someone from the dedicated answering line. Will have HH nurse call back. Please advise previous message. * Telephone Encounter - Ney Augustine MD - 10/09/2023 3:01 PM EST All the meds were refilled only for one mo Will need to request outine meds refill to PCP * Telephone Encounter - Karla Cox LPN - 10/09/2023 1:31 PM EST Sent to wrong pool * Telephone Encounter - Tamra Leone OSA - 10/09/2023 1:06 PM EST Reason for call: Gracie [facility] Home Health calling on behalf of the patient. States that patient needsrefills on the below medications. Donepezil HCl 5 MG Oral Tablet (Aricept) Vitamin D3 1.25 MG (09063 UT) Oral Capsule Montelukast Sodium 10 MG Oral Tablet (Singulair) Sertraline HCl 50 MG Oral Tablet (Zoloft) Metoprolol Succinate ER 25 MG Oral Tablet Extended Release 24 Hour (Toprol XL) Ramelteon 8 MG Oral Tablet (Rozerem) Omeprazole 20 MG Oral Capsule Delayed Release (PriLOSEC) Mirtazapine 30 MG Oral Tablet (Remeron) Potassium Chloride ER 10 MEQ Oral Capsule Extended Release Any questions or concerns can be addressed to Gracie at Preferred Pharmacy: [facility] #[id number] documented in this encounter Plan of Treatment Upcoming Encounters Date Type Department Care Team (Late st Contact Info) Description 11/29/2023 3:30 PM EST Telemedicine Psychiatry, [address], [place] [address] Hugo Alcantara MD [address] [facility] [place] [id number] 01/07/2024 1:30 PM EST Office Visit Cardiology, [facility] [address] [place] [address] Saray Muhammad CRNP [address] [place] [address] Scheduled Procedures Name Priority Associated Diagnoses Date/Ti [...] 02/16/2022 LUNG CANCER SCREENING - USE SMARTSET 97350 Completed 2023, 03/16/2022, 08/24/2018, Additional history exists [...] Agent Relationshi p Communication Laura Gant Adult [facility] Health Vocational Rehabilitation Administrator resentative (appointed verbally by patient or by statute hierarchy) Darlene Gilbert Adult [facility] Health Vocational Rehabilitation Administrator resentative (appointed verbally by patient or by statute hierarchy) Care Teams Information Technology Security Analyst Relationship Specialty Start Date End Date Roger Alexandra MD [address] [place] [address] PCP - General Family Medicine 12/29/19 documented as of this encounter
--- OUTSIDE RECORDS SUMMARY | 2023-11-16 19:20 | External Medical Summary | Summary of Care ---
Author Name Unknown Organization [facility] Address [address] [facility] [place] [address] Phone [phone] Care Team Providers Care Coastal And Estuary Specialist Name Role Phone Roger Alexandra MD Primary Care Provider [phone] Reason for Visit * Reason Onset Date Comments Medication Refill 10/09/2023 Encounter Details Date Type Department Care Team (Late st Contact Info) Description 10/09/2023 Telephone Family Practice [facility] [address] [place] [address] Roger Alexandra MD [address] [place] [address] Medication Refill Allergies Active Allergy Reactions Criticality [...] J44.9 90 mL 3 03/18/2023 Active Nystatin 484094 UNIT/GM External Powder (Nyamyc) apply to affected [...] MCG/ACT Inhalation Aerosol Powder Breath Activated (umeclidinium [place]) Inhale 1 Puff by mouth in the [...] 0 10/09/2023 Active Vitamin D3 1.25 MG (55227 UT) Oral Capsule Take 1 Capsule by [...] 1:06 PM EST Reason for call: Gracie [facility] Home Health calling on behalf of the patient. States that patient needsrefills on the below medications. Donepezil HCl 5 MG Oral Tablet (Aricept) Vitamin D3 1.25 MG (11127 UT) Oral Capsule Montelukast Sodium 10 MG [...] Gracie at Preferred Pharmacy: [facility] #[id number] documented in this encounter Plan of Treatment Upcoming Encounters Date Type Department Care Team (Late st Contact Info) Description 11/29/2023 3:30 PM EST Telemedicine Psychiatry, [address], [place] [address] Hugo Alcantara MD [address] [facility] [place] [id number] 01/07/2024 1:30 PM EST Office Visit Cardiology, [facility] [address] [place] [address] Saray Muhammad CRNP [address] [place] [address] Scheduled Procedures Name Priority Associated Diagnoses Date/Ti [...] 02/16/2022 LUNG CANCER SCREENING - USE SMARTSET 60419 Completed 2023, 03/16/2022, 08/24/2018, Additional history exists [...] Gant Adult [facility] Health Pre Sales Architect resentative (appointed verbally by patient or by statute hierarchy) Darlene Gilbert Adult [facility] Health Pre Sales Architect resentative (appointed verbally by patient or by statute hierarchy) Care Teams Coastal And Estuary Specialist Relationship Specialty Start Date End Date Roger Alexandra MD [address] [place] [phone] PCP - General Family Medicine 12/29/19 documented as of this encounter
--- OUTSIDE RECORDS SUMMARY | 2023-11-16 19:20 | External Medical Summary | Summary of Care ---
Author Name Unknown Organization [facility] Address [address] [place] [address] Phone [phone] Care Team Providers Care Toddler Guide Name Role Phone Roger Alexandra MD Primary Care Provider [phone] Reason for Visit * Reason Comments [facility]: Telehealth Encounter Details Date Type Department Care Team (Late st Contact Info) Description 10/08/2023 1:30 PM EST Telemedicine [facility], [place] [address] [place] [address] Sharmaine Johns PA-C [address] [place] [address] Kim Carrizales, Community Health Internet Manager [address] [place] [address] Chronic diastolic CHF (congestive heart failure) (HCC)*; COPD, group D, by GOLD 2017 classification (HCC); Chronic respiratory failure with hypoxia (HCC); History of multiple strokes Allergies Active Allergy Reactions Criticality Noted Date Comments Aspirin Unknown 12/12/2007 von Willebrand's disease Salicylates 03/01/2000 von Willebrand's disease documented as of this encounter (statuses as of 10/11/2023) Medications Medication Sig Dispensed Refills Start Date End Date Status oxygen IN GASIndications:Chr onic hypoxemic respiratory failure (HCC),COPD, group D, by GOLD 2017 classification ([facility]) Use 2 LPM at rest, 4 [...] COPD, group D, by GOLD 2017 classification ([facility]),Chronic hypoxemic respiratory failure (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 18 g 5 3 Active Baclofen 10 MG Oral Tablet (Lioresal)Indicati ons:Chronic bilateral low back pain without sciatica Take 1 Tablet by mouth 3 times a day as needed for Muscle spasms. 90 Tablet 0 3 Active Solifenacin Succinate 10 MG Oral Tablet (VESIcare) Take 1 Tablet by mouth in the morning. 30 Tablet 1 3 Active Acetaminophen-Code ine 300-30 MG Oral [...] MCG/ACT Inhalation Aerosol Powder Breath Activated (umeclidinium Farnam) Inhale 1 Puff by mouth in the [...] 04, 2023. 120 Tablet 1 3 Active Donepezil HCl 5 MG Oral [...] 60 Capsule 5 3 023 Discontinued(Re fill) Ramelteon 8 MG Oral Tablet (Rozerem) Take 1 Tablet by mouth at bedtime. 30 Tablet 1 3 023 Discontinued(Re fill) Furosemide 40 MG Oral Tablet (Lasix)Indications :Chronic diastolic CHF (congestive heart failure) (HCC) Take 1 Tablet by mouth in the morning and 1 Tablet before bedtime. 180 Tablet 3 3 023 Discontinued Metoprolol Succinate ER 25 MG Oral Tablet Extended Release 24 Hour (Toprol XL) Take 1 Tablet by mouth in the morning. 30 Tablet 11 3 023 Discontinued(Re fill) Vitamin D3 1.25 MG (76456 UT) Oral Capsule Take 1 Capsule by mouth once a week. 12 Capsule 0 3 023 Discontinued(Re fill) Montelukast Sodium 10 MG Oral Tablet (Singulair) Take 1 Tablet by mouth at bedtime. 0 023 Discontinued(Re fill) Sertraline HCl 50 MG Oral Tablet (Zoloft) Take 1 Tablet by mouth in the morning. 0 023 Discontinued Hospital, Clinic, or Other Facility Administered Medication Ordered Dose Route Frequency Start Date End Date Status Albuterol Sulfate (Proventil) (2.5 MG/3ML) 0.083% inhalation solution 2.5 mgIndications:COPD, group D, by GOLD 2017 classification ([facility]) 2.5 mg NEBULIZER PRN 03/03/2023 03/02/2024 Acti ve Albuterol Sulfate (Proventil) (5 MG/ML) 0.5% *conc* inhalation solution 2.5 mgIndications:COPD, group D, by GOLD 2017 classification ([facility]) 2.5 mg NEBULIZER PRN 03/03/2023 03/02/2024 Acti ve documented as of this encounter (statuses as of 10/11/2023) Active Problems Problem Noted Date Diagnosed Date Food insecurity 09/27/2023 Overview: Per [facility] Protocol Prediabetes 07/13/2023 Decreased functional [...] as of this encounter (statuses as of 10/11/2023) Resolved Problems Problem Noted Date Diagnosed Date [...] as of this encounter (statuses as of 10/11/2023) Immunizations Name Administration Dates Next Due H1N1 [...] Sign Reading Time Taken Comments Blood Pressure 100/70 10/08/2023 2:01 PM EST Pulse 105 10/08/2023 2:01 PM EST Temperature 37 C (98.6 F) 10/08/2023 2:01 PM EST Respiratory Rate - - Oxygen Saturation 94% 10/08/2023 2:01 PM EST Inhaled Oxygen Concentration - - Weight - - Height - - Body Mass Index - - documented in this encounter Progress Notes * Kim Carrizales, Community Health Internet Manager - 10/08/2023 4:29 PM EST Telemedicine visit: Yes Patient location: HOME. I was not in a hospital or clinic location. After connecting through televideo, patient was verified with two unique identifiers. Patient (or authorized legal member services representative)was then informed that this was a Telemedicine visit and being conducted confidentially over securelines. Methods to assure confidentiality were taken. Patient acknowledged consent and understandingof privacy and security of the Telemedicine visit. The patient agreed to participate. Community Health Internet Manager (EMERSON) documentation: EMERSON completed telehealth visit with Jamilah Connors. Provider suggested a referral to [facility] on Aging forassistance and guidance with losing the waiver for caregivers. Patient has started to receive pension from and now is over the limit for the waiver for her granddaughter to be paid for caring for her. Patient requested that [facility] contact her granddaughter Darlene. Patient would alsolike the information for [facility] legal services. [facility] will contact granddaughter Darlene and give AAA information to her per patients request. Kim Carrizales- [facility] Support Services/[facility] [employer] [email or web address] * Sharmaine Johns PA-C - 10/08/2023 1:[address] [facility] Provider Telemedicine Visit Date: 10/08/2023 Time: 1:56 PM Assessment/Plan: 1. Chronic diastolic CHF (congestive heart failure) (HCC) Taking Lasix 40 mg once day; mild LE edema noted BP has been on low side with orthostatic symptoms; asked that HH closely manage BP at home and reach out with low readings 2. COPD, group D, by GOLD 2017 classification ([facility]) Stable 3. Chronic respiratory failure with hypoxia ([facility]) Stable 4. History of multiple strokes Anticoagulated with Eliquis Follow up plan: Will follow up in a month. Patient BP is low today. She is still having orthostaticsymptoms. She feels GUTHRIE, difficult to say if this is related to deconditioning vs. Respiratory. Sheis currently taking 40 mg Lasix. She had notable increase in edema when on 20 mg Lasix. Will reach out to CM to have HH closely monitor BP and let us know if she is getting hypotensive. A total of 25 minutes was spent face to face via video-based telemedicine. Subjective Patient location: HOME. I was not in a hospital or clinic location. After connecting through televideo, patient was verified with two unique identifiers. Patient (or authorized legal member services representative) was then informed that this was a Telemedicine visit and being conducted confidentially over secure lines. Methods to assure confidentiality were taken. Patient acknowledged consent and understanding of privacy and security of the Telemedicine visit. The patient agreed to participate. Reason for Visit: Follow-Up Current Concerns: Kimberly Kendall is a 63 year old female seen today for a [facility] Telemedicine Provider Visit. Date of last known acute care visit: 09/20/23 with psyche Reason for last known acute care visit: Patient was admitted to [facility] on 08/12/23- 08/25/23 with INR >9 and hemoglobin of 3.9. Anemia was contributed to an upper GI bleed. EGD was performed and WNL. While hospitalized she suffered an acute CVA to the right parieto-occipital region and was started on Eliquis 5 mg BID. She was discharged to a SNF. I saw the patient on 09/15/23 and she was hypotensive. She was advised to decrease Lasix to20 mg. She cancelled our last appointment which was made for close follow up. Per chart review BP improved. She had increased LE edema per HH and she was advised to increase Lasix back to 40 mg. Today's concerns are: Patient states she is feeling about the same. She still gets dizziness when moving from sitting to standing. She feels winded when walking but isn't sure if it is related to deconditioning. No cough or URI symptoms. She feels her legs are mildly edematous today. She is currently taking Lasix 40 mg once a day. Her BP has been up and down. Appetite is ok. No changes in bowel or urinary habits. She occasionally gets dysuria but does not want to check a UA today. She is worried about client care specialist support since she lost the waiver program. EMERSON to refer to AAA. ROS: See HPI Objective Physical Exam: BP 100/70 (BP Site: Right Arm, BP Position: Sitting, BP Cuff Size: Large) | Pulse 105 | Temp 37 C(98.6 F) (Infrared ) | SpO2 94% Previous Wts: Wt Readings from Last 5 Encounters: 07/27/23 (!) 144.2 kg (318 lb) 04/15/23 (!) 142.7 kg (314 lb 8 oz) 03/15/23 (!) 137.2 kg (302 lb 8 oz) 03/11/23 (!) 138.8 kg (306 lb) 03/09/23 (!) 139.6 kg (307 lb 12.2 oz) Previous BPs: BP Readings from Last 5 Encounters: 09/22/23 130/60 09/15/23 80/60 08/04/23 100/62 07/27/23 122/68 07/07/23 108/72 (EMERSON's computer camera was not working; unable to see the patient). Physical Exam Musculoskeletal: Comments: Reviewed pics sent by EMERSON: Mild edema noted to the ankle region bilaterally Diagnostic Data Review: Hematology Lab Results Component Value Date/Time WBC AUTO - [facility] 4.74 09/27/2023 09:50 AM WBC AUTO - [facility] 7.35 09/05/2023 05:15 AM WBC AUTO - [facility] 7.87 09/02/2023 06:15 AM WBC AUTO - [facility] 7.25 10/17/2020 03:40 PM WBC AUTO - [facility] 8.07 12/29/2019 10:22 AM WBC AUTO - [facility] 9.78 03/17/2016 03:23 PM Lab Results Component Value Date/Time HGB - [facility] 9.7 (L) 09/27/2023 09:50 AM HGB - [facility] 10.1 (L) 09/05/2023 05:15 AM HGB - [facility] 8.7 (L) 09/02/2023 06:15 AM HGB - [facility] 12.2 10/17/2020 03:40 PM HGB - [facility] 14.1 12/29/2019 10:22 AM HGB - [facility] 14.0 03/17/2016 03:23 PM Lab Results Component Value Date/Time HCT - [facility] 35.0 (L) 09/27/2023 09:50 AM HCT - [facility] 34.0 (L) 09/05/2023 05:15 AM HCT - [facility] 31.0 (L) 09/02/2023 06:15 AM HCT - [facility] 39.5 10/17/2020 03:40 PM HCT - [facility] 44.1 12/29/2019 10:22 AM HCT - [facility] 43.3 03/17/2016 03:23 PM Lab Results Component Value Date/Time PLATELET AUTO - [facility] 331 09/27/2023 09:50 AM PLATELET AUTO - [facility] 590 (H) 09/05/2023 05:15 AM PLATELET AUTO - [facility] 503 (H) 09/02/2023 06:15 AM PLATELET AUTO - [facility] 385 10/17/2020 03:40 PM PLATELET AUTO - [facility] 399 12/29/2019 10:22 AM PLATELET AUTO - [facility] 379 03/17/2016 03:23 PM Lab Results Component Value Date/Time IRON - [facility] 63 09/27/2023 09:50 AM IRON - [facility] 37 05/08/2015 03:40 PM Lab Results Component Value Date/Time TRANSFERRIN SATURATION PERCENT - [facility] 26 09/27/2023 09:50 AM No results found for: "TRANSFERRIN - [facility]" Lab Results Component Value Date/Time VITAMIN B12 - [facility] 449 09/27/2023 09:50 AM VITAMIN B12 - [facility] 397 08/21/2015 11:59 AM Chemistry/Renal Lab Results Component Value Date/Time SODIUM - [facility] 139 09/27/2023 09:50 AM SODIUM - [facility] 138 09/05/2023 05:15 AM SODIUM - [facility] 142 10/17/2020 03:40 PM SODIUM - [facility] 143 12/29/2019 10:22 AM Lab Results Component Value Date/Time POTASSIUM - [facility] 4.1 09/27/2023 09:50 AM POTASSIUM - [facility] 2.9 (L) 09/05/2023 05:15 AM POTASSIUM - [facility] 4.6 10/17/2020 03:40 PM POTASSIUM - [facility] 4.0 12/29/2019 10:22 AM Lab Results Component Value Date/Time PHOSPHORUS - [facility] 2.9 03/24/2005 10:42 AM Lab Results Component Value Date/Time MAGNESIUM - [facility] 2.2 05/25/2016 10:30 AM MAGNESIUM - [facility] 2.2 03/24/2005 10:42 AM Lab Results Component Value Date/Time BUN - [facility] 11 09/27/2023 09:50 AM BUN - [facility] 17 09/05/2023 05:15 AM BUN - [facility] 16 09/02/2023 06:15 AM BUN - [facility] 10 10/17/2020 03:40 PM BUN - [facility] 14 12/29/2019 10:22 AM BUN - [facility] 15 05/25/2016 10:30 AM Lab Results Component Value Date/Time CREATININE - [facility] 0.9 09/27/2023 09:50 AM CREATININE - [facility] 1.0 09/05/2023 05:15 AM CREATININE - [facility] 1.0 09/02/2023 06:15 AM CREATININE - [facility] 0.7 10/17/2020 03:40 PM CREATININE - [facility] 0.7 12/29/2019 10:22 AM CREATININE - [facility] 0.6 05/25/2016 10:30 AM Lab Results Component Value Date/Time ESTIMATED GLOMERULAR FILTRATION RATE - [facility] 71 09/27/2023 09:50 AM ESTIMATED GLOMERULAR FILTRATION RATE - [facility] 60 09/05/2023 05:15 AM ESTIMATED GLOMERULAR FILTRATION RATE - [facility] 63 09/02/2023 06:15 AM ESTIMATED GLOMERULAR FILTRATION RATE - [facility] [...] 05/17/2013 11:16 AM No results found for: "PTH - [facility]" Liver Lab Results Component Value Date/Time AST - [facility] 20 09/27/2023 09:50 AM AST - [facility] 21 07/12/2023 07:01 AM AST - [facility] 13 12/29/2019 10:22 AM AST - [facility] 16 03/17/2016 03:23 PM Lab Results Component Value Date/Time ALT - [facility] 13 09/27/2023 09:50 AM ALT - [facility] 11 07/12/2023 07:01 AM ALT - [facility] 6 (L) 12/29/2019 10:22 AM ALT - [facility] 9 (L) 03/17/2016 03:23 PM Lab Results Component Value Date/Time ALKALINE PHOSPHATASE - [facility] 95 09/27/2023 09:50 AM ALKALINE PHOSPHATASE - [facility] 103 07/12/2023 07:01 AM ALKALINE PHOSPHATASE - [facility] 75 12/29/2019 10:22 AM ALKALINE PHOSPHATASE - [facility] 104 03/17/2016 03:23 PM Lab Results Component Value Date/Time BILIRUBIN, DIRECT - [facility] 0.1 11/19/2000 12:26 PM BILIRUBIN, TOTAL - [facility] 0.3 09/27/2023 09:50 AM BILIRUBIN, TOTAL - [facility] <0.2 07/12/2023 07:01 AM BILIRUBIN, TOTAL - [facility] 0.2 12/29/2019 10:22 AM BILIRUBIN, TOTAL - [facility] 0.3 03/17/2016 03:23 PM BILIRUBIN, URINE - [facility] Negative 12/23/2022 12:31 [...] Component Value Date/Time HEMOGLOBIN A1C - [facility] 6.3 (H) 07/12/2023 07:01 AM HEMOGLOBIN A1C - [facility] 5.7 04/19/2014 12:08 PM HEMOGLOBIN A1C - [facility] 5.9 09/10/1999 04:45 PM Lab Results Component Value Date/Time ESTIMATED AVERAGE GLUCOSE - [facility] 134 (H) 07/12/2023 07:01 AM Lab Results Component Value Date/Time TSH - [facility] 1.18 09/27/2023 09:50 AM TSH - [facility] 2.32 07/12/2023 07:01 AM TSH - [facility] 0.66 12/29/2019 10:22 AM TSH - [facility] 2.08 03/26/2016 01:00 PM Lab Results Component Value Date/Time T4, FREE - [facility] 0.65 (L) 03/26/2016 01:00 PM T4, FREE - [facility] 0.58 (L) 03/17/2016 03:23 PM Medication Review: Current Outpatient Medications Medication [...] for Wheezing or Shortness of Breath. (Patient taking differently: Inhale 1 Vial via nebulizer every 4 hours as needed for Wheezing or Shortness of Breath. Taking once daily) 540 mL 12 Donepezil HCl 5 MG [...] Take 1.5 Tablets by mouth at bedtime. (Patient taking differently: Take 1 Tablet by mouth at bedtime.) 45 Tablet 2 Vitron-C 65-125 MG Oral [...] and1 capsule BEFORE BEDTIME 60 Capsule 5 Nystatin 452869 UNIT/GM External Powder (Nyamyc) apply to affected area twice a day 60 g 1 Ramelteon 8 MG Oral Tablet (Rozerem) Take 1 Tablet by mouth at bedtime. 30 Tablet 1 Furosemide 40 MG Oral Tablet (Lasix) Take 1 Tablet by mouth in the morning and 1 Tablet before bedtime. (Patient taking differently: Take 1 Tablet by mouth in the morning and 1 Tablet before bedtime.Advised to 20 mg twice daily due to hypotension.) 180 Tablet 3 Isosorbide Mononitrate ER 30 MG Oral Tablet Extended Release 24 Hour (Imdur) take 1 tablet by mouthonce daily 30 Tablet 5 Metoprolol Succinate ER 25 MG Oral Tablet Extended Release 24 Hour (Toprol XL) Take 1 Tablet by mouth in the morning. 30 Tablet 11 Vitamin D3 1.25 MG (55451 UT) Oral Capsule Take 1 Capsule by mouth once a week. (Patient not taking: Reported on 09/15/2023) 12 Capsule 0 ProAir HFA 108 (90 Base) MCG/ACT Inhalation Aerosol Solution Inhale 2 Puffs by mouth in the morningand 2 Puffs at noon and 2 Puffs in the evening and 2 Puffs before bedtime. 18 g 5 Baclofen 10 MG Oral Tablet (Lioresal) Take 1 Tablet by mouth 3 times a day as needed for Muscle spasms. 90 Tablet 0 Solifenacin Succinate 10 MG Oral Tablet (VESIcare) Take 1 Tablet by mouth in the morning. 30 Tablet1 Acetaminophen-Codeine 300-30 MG Oral Tablet Take 1 Tablet by mouth every 6 hours as needed for Pain, Moderate. 120 Tablet 0 Vitamin D3 25 MCG (1000 UT) Oral Capsule Take by mouth. traMADol HCl (ER Biphasic) 100 MG Oral Capsule Extended Release 24 Hour Take 1 Capsule by mouth every 8 hours as needed for Pain, Severe. Montelukast Sodium 10 MG Oral Tablet (Singulair) Take 1 Tablet by mouth at bedtime. Incruse Ellipta 62.5 MCG/ACT Inhalation Aerosol Powder Breath Activated (umeclidinium Farnam) Inhale 1 Puff by mouth in the morning. Probiotic & Acidophilus Ex St Oral Capsule Take 2 Capsules by mouth every evening. Apixaban 5 MG Oral Tablet (Eliquis) Take 1 Tablet by mouth in the morning and 1 Tablet before bedtime. Sertraline HCl 50 MG Oral Tablet (Zoloft) Take 1 Tablet by mouth in the morning. LORazepam 0.5 MG Oral Tablet (Ativan) Take 1 Tablet by mouth every 6 hours as needed for Anxiety. Do not start before October 04, 2023. 120 Tablet 1 Current Facility-Administered Medications Medication Dose Route Frequency Provider Last Rate Last Admin Albuterol Sulfate (Proventil) (2.5 MG/3ML) 0.083% inhalation solution 2.5 mg 2.5 mg Nebulizer Juan Reyes MD 2.5 mg at 03/09/23 1107 Albuterol Sulfate (Proventil) (5 MG/ML) 0.5% *conc* inhalation solution 2.5 mg 2.5 mg Nebulizer Juan Reed MD Mobility Evaluation: MACH10 Assessment: Assistive Devices Used in the Home: Walker (standard or rollator) Recent Falls: Falls in the last 6 months: No SDoH: DME (Durable Medical Equipment) needs Outreach Representative Services / Assistance with ADLs and Self-Care Routine Transportation Urgent Transportation Social Isolation Behavioral Health needs Sharmaine Roberts PA-C 1:56 PM *Communication sent to PCP (via [employer] if [facility]), Population Health Care Team members, relevant Specialty Care Physicians* documented in this encounter Plan of Treatment Upcoming Encounters Date Type Department Care Team (Late st Contact Info) Description 11/29/2023 3:30 PM EST Telemedicine Psychiatry, [facility] [address] [place] [address] Hugo Alcantara MD [address] [facility], [place] [address] 01/07/2024 1:30 PM EST Office Visit Cardiology, [facility] [address] [place] [address] Saray Muhammad CRNP [address] [place] [address] Scheduled Procedures Name Priority Associated Diagnoses Date/Ti [...] 02/16/2022 LUNG CANCER SCREENING - USE SMARTSET [id number] Completed 2023, 03/16/2022, 08/24/2018, Additional history exists GARDASIL-HPV IMMUNIZATION SERIES Aged Out No longer eligible based on patient's age to complete this topic MENINGOCOCCAL (MENACTRA/MENVEO) Aged Out No longer eligible based on patient's age to complete this topic documented as of this encounter Medical Devices Not on filedocumented as of this encounter Visit Diagnoses Diagnosis Chronic diastolic CHF (congestive heart failure) (HCC)- Primary Chronic diastolic heart failure COPD, group D, by GOLD 2017 classification (HCC) Chronic respiratory failure with hypoxia (HCC) Chronic respiratory failure History of multiple strokes documented in this encounter Advance Directives Healthcare Agents on File Name Relationship Healthcare Agent Relationshi p Communication Laura Gant [facility] Senior Electrical Project Manager resentative (appointed verbally by patient or by statute hierarchy) Darleneasher [facility] Senior Electrical Project Manager resentative (appointed verbally by patient or by statute hierarchy) Care Teams Toddler Guide Relationship Specialty Start Date End Date Roger Alexandra MD [address] [place] [id number] PCP - General Family Medicine 12/29/19 documented as of this encounter
--- OUTSIDE RECORDS SUMMARY | 2023-11-16 19:20 | External Medical Summary | Summary of Care ---
Author Name Unknown Organization [facility] Address [address] [facility] [place] [address] Phone [phone] Care Team Providers Care Animal Pathologist Name Role Phone Roger Alexandra MD Primary Care Provider [phone] Reason for Visit * Reason Onset Date Comments Medication Refill 10/09/2023 Encounter Details Date Type Department Care Team (Late st Contact Info) Description 10/09/2023 Telephone Family Practice [facility] [address] [place] [address] Roger Alexandra MD [address] [place] [address] Medication Refill Allergies Active Allergy Reactions Criticality [...] J44.9 90 mL 3 03/18/2023 Active Nystatin 059767 UNIT/GM External Powder (Nyamyc) apply to affected [...] MCG/ACT Inhalation Aerosol Powder Breath Activated (umeclidinium [place]) Inhale 1 Puff by mouth in the [...] 0 10/09/2023 Active Vitamin D3 1.25 MG (67422 UT) Oral Capsule Take 1 Capsule by [...] defect 02/04/2006 009 Atrial septal aneurysm 02/04/200612/21 correction current use of ant icoagulant therapy 06/01/2005 [...] encounter Miscellaneous Notes * Telephone Encounter - Ney Augustine MD - 10/09/2023 3:01 PM EST All the meds were refilled only for one mo Will need to request outine meds refill to PCP * Telephone Encounter - Karla Cox LPN - 10/09/2023 1:31 PM EST [facility] * Telephone Encounter - Tamra Leone OSA - 10/09/2023 1:06 PM EST Reason for call: Gracie [facility] calling on behalf of the patient. States that patient needsrefills on the below medications. Donepezil HCl 5 MG Oral Tablet (Aricept) Vitamin D3 1.25 MG (85639 UT) Oral Capsule Montelukast Sodium 10 MG [...] Gracie at Preferred Pharmacy: [id number] documented in this encounter Plan of Treatment Upcoming Encounters Date Type Department Care Team (Late st Contact Info) Description 11/29/2023 3:30 PM EST Telemedicine Psychiatry, [address] [address] Hugo Alcantara MD [address] [place] [address] 01/07/2024 1:30 PM EST Office Visit Cardiology, [facility] [address] [facility] [address] Saray Muhammad CRNP [address] [place] [address] Scheduled Procedures [...] 02/16/2022 LUNG CANCER SCREENING - USE SMARTSET [id number] Completed 2023, 03/16/2022, 08/24/2018, Additional history exists [...] Healthcare Agent Relationshi p Communication Laura Gant [facility] [employer] Cutter resentative (appointed verbally by patient or by statute hierarchy) [facility] Rep resentative (appointed verbally by patient or by statute hierarchy) Care Teams Animal Pathologist Relationship Specialty Start Date End Date Roger Alexandra MD [address] [place] [address] PCP - General Family Medicine 12/29/19 documented as of this encounter
--- OUTSIDE RECORDS SUMMARY | 2023-11-16 19:20 | External Medical Summary | Summary of Care ---
Author Name Unknown Organization [facility] Address [address] [facility] [place] [address] Phone [phone] Care Team Providers Care Silo Operator Name Role Phone Roger Alexandra MD Primary Care Provider [phone] [phone] Reason for Visit * Reason Onset Date Comments Medication Refill 10/09/2023 Encounter Details Date Type Department Care Team (Late st Contact Info) Description 10/09/2023 Telephone Family Practice [facility] [address] [place] [address] Roger Alexandra MD [address] [place] [address] Medication Refill Allergies Active Allergy Reactions Criticality [...] J44.9 90 mL 3 03/18/2023 Active Nystatin 721579 UNIT/GM External Powder (Nyamyc) apply to affected [...] MCG/ACT Inhalation Aerosol Powder Breath Activated (umeclidinium [place]) Inhale 1 Puff by mouth in the [...] 0 10/09/2023 Active Vitamin D3 1.25 MG (96187 UT) Oral Capsule Take 1 Capsule by mouth once a week. 4 Capsule 0 10/09/2023 Active Hospital, Clinic, or Other Facility Administered Medication Ordered Dose Route Frequency Start Date End Date Status Albuterol Sulfate (Proventil) (2.5 MG/3ML) 0.083% inhalation solution 2.5 mgIndications:COPD, group D, by GOLD 2017 classification ([facility]) 2.5 mg NEBULIZER PRN 03/03/2023 03/02/2024 Acti ve Albuterol Sulfate (Proventil) (5 MG/ML) 0.5% *conc* inhalation solution 2.5 mgIndications:COPD, group D, by GOLD 2017 classification ([facility]) 2.5 mg NEBULIZER PRN 03/03/2023 03/02/2024 Acti [...] defect 02/04/2006 009 Atrial septal aneurysm 02/04/200612/21 group home current use of ant icoagulant therapy 06/01/2005 [...] encounter Miscellaneous Notes * Telephone Encounter - Aster Walters OSA - 10/09/2023 4:26 PM EST Gracie returning call. Notified of message and no further questions * Telephone Encounter - Arlene Steel MED [...] refill to PCP * Telephone Encounter - aKrla Cox LPN - 10/09/2023 1:31 PM EST Sent to wrong pool * Telephone Encounter - Tamra Leone OSA - 10/09/2023 1:06 PM EST Reason for call: Gracie [facility] Home [facility] calling on behalf of the patient. States that patient needsrefills on the below medications. Donepezil HCl 5 MG Oral Tablet (Aricept) Vitamin D3 1.25 MG (14854 UT) Oral Capsule Montelukast Sodium 10 MG [...] Gracie at Preferred [facility]acy: [facility] #[id number] documented in this encounter Plan of Treatment Upcoming Encounters Date Type Department Care Team (Late st Contact Info) Description 11/29/2023 3:30 PM EST Telemedicine Psychiatry, [address] [place] [address] Hugo [facility]antara [facility] [address] [facility] [address] 01/07/2024 1:30 PM EST Office Visit Cardiology, [facility] [address] [place] [address] Saray Muhammad CRNP [address] [place] [address] Scheduled Procedures Name Priority Associated Diagnoses Date/Ti [...] 02/16/2022 LUNG CANCER SCREENING - USE SMARTSET 03654 Completed 2023, 03/16/2022, 08/24/2018, Additional history exists [...] Healthcare Agent Relationshi p Communication Laura Stalin [facility] Laundry Worker resentative (appointed verbally by patient or by statute hierarchy) Darleneasher Ruelaser [facility] Laundry Worker resentative (appointed verbally by patient or by statute hierarchy) Care Teams Silo Operator Relationship Specialty Start Date End Date Roger Alexandra MD [address] [place] [address] PCP - General Family Medicine 12/29/19 documented as of this encounter
--- OUTSIDE RECORDS SUMMARY | 2023-11-16 19:20 | External Medical Summary | Summary of Care ---
Author Name Unknown Organization [facility] Address [address] [place] [address] Phone [phone] Care Team Providers Care Finish Specialist Name Role Phone Roger Alexandra MD Primary Care Provider [phone] Reason for Visit * Reason Comments eRx-Medication Refill Encounter Details Date Type Department Care Team (Late st Contact Info) Description 10/08/2023 Refill Family Practice [facility] [address] [place] [address] Roger Alexandra MD [address] [place] [address] Chronic diastolic CHF (congestive heart failure) (HCC) Allergies Active Allergy Reactions Criticality Noted Date [...] COPD, group D, by GOLD 2017 classification ([facility]),Chronic hypoxemic respiratory failure ([facility]) Use with nebulized meds 1 Each 0 2 Active Full Kit Nebulizer SetIndications:MANAGER PAID D, group D, by GOLD 2017 classification ([facility] [...] J44.9 90 mL 3 3 Active Nystatin 512044 UNIT/GM External Powder (Nyamyc) apply to affected [...] MCG/ACT Inhalation Aerosol Powder Breath Activated (umeclidinium [place]) Inhale 1 Puff by mouth in the [...] 0 3 Active Vitamin D3 1.25 MG (49233 UT) Oral Capsule Take 1 Capsule by mouth once a week. 4 Capsule 0 3 Active Donepezil HCl 5 MG [...] 023 Discontinued(Re fill) Vitamin D3 1.25 MG (36844 UT) Oral Capsule Take 1 Capsule by [...] Venous stasis 04/16/2015 12/29/2019 Narcotic addiction 10/04/2014 MEDICATION USE AGREEMENT 01/29/2014 ADVANCE DIRECTIVE INFORMATION [...] ,08/03/2012,08/24/2011,08/06/2010,0202/2010,09/20/2007,09/04/2003 Seasonal Influenza, Quadriva lent, No Preserve, IM [...] Encounter - Ney Augustine MD - 10/09/2023 2:57 PM EST Refiled meds for one mo documented in this encounter Plan of Treatment Upcoming Encounters Date Type Department Care Team (Late st Contact Info) Description 11/29/2023 3:30 PM EST Telemedicine Psychiatry, [facility] [address] [facility] [place], [place] [address] Hugo Alcantara MD [address] [facility] [place] [address] 01/07/2024 1:30 PM EST Office Visit Cardiology, [facility] [address] [place] [address] Saray Muhammad CRNP [address] [place] [address] Scheduled Procedures Name Priority Associated Diagnoses Date/Ti [...] 02/16/2022 LUNG CANCER SCREENING - USE SMARTSET 76332 Completed 2023, 03/16/2022, 08/24/2018, Additional history exists [...] diastolic heart failure documented in this encounter Advance Directives Healthcare Agents on File Name Relationship Healthcare Agent Relationshi p Communication Laura Gant [facility] Rep resentative (appointed verbally by patient or by statute hierarchy) Darlene Gilbert [facility] Health Planning Specialist resentative (appointed verbally by patient or by statute hierarchy) Care Teams Finish Specialist Relationship Specialty Start Date End Date Roger Alexandra MD [address] [place] [address] PCP - General Family Medicine 12/29/19 documented as of this encounter
--- OUTSIDE RECORDS SUMMARY | 2023-11-16 19:20 | External Medical Summary | Summary of Care ---
Author Name Unknown Organization [facility] Address [address] [facility] [place] [address] Phone [phone] Care Team Providers Care Bag Machine Set Up Operator Name Role Phone Roger Alexandra MD Primary Care Provider [phone] [phone] Reason for Visit * Reason Onset Date Comments Medication Refill 10/09/2023 Encounter Details Date Type Department Care Team (Late st Contact Info) Description 10/09/2023 Telephone Family Practice [facility] [address] [place] [address] Roger Alexandra MD [address] [place] [address] Medication Refill Allergies Active Allergy Reactions Criticality [...] J44.9 90 mL 3 03/18/2023 Active Nystatin 670628 UNIT/GM External Powder (Nyamyc) apply to affected [...] MCG/ACT Inhalation Aerosol Powder Breath Activated (umeclidinium [place]) Inhale 1 Puff by mouth in the [...] 0 10/09/2023 Active Vitamin D3 1.25 MG (08305 UT) Oral Capsule Take 1 Capsule by [...] defect 02/04/2006 009 Atrial septal aneurysm 02/04/200612/21 senior care current use of ant icoagulant therapy 06/01/2005 [...] 1:06 PM EST Reason for call: Gracie [facility] Home Health calling on behalf of the patient. States that patient needsrefills on the below medications. Donepezil HCl 5 MG Oral Tablet (Aricept) Vitamin D3 1.25 MG (41751 UT) Oral Capsule Montelukast Sodium 10 MG [...] Gracie at Preferred Pharmacy: [facility] #[id number] documented in this encounter Plan of Treatment Upcoming Encounters Date Type Department Care Team (Late st Contact Info) Description 11/29/2023 3:30 PM EST Telemedicine Psychiatry, [address] [place] [address] Hugo Al[facility]antara MD [address] [facility] [address] 01/07/2024 1:30 PM EST Office Visit Cardiology, [facility] [address] [place] [address] Saray Muhammad CRNP [address] [place] [address] Scheduled Procedures Name Priority Associated Diagnoses Date/Ti [...] 02/16/2022 LUNG CANCER SCREENING - USE SMARTSET 43848 Completed 2023, 03/16/2022, 08/24/2018, Additional history exists [...] Healthcare Agent Relationshi p Communication Laura Stalin [facility] Health Equipment Installer resentative (appointed verbally by patient or by statute hierarchy) Darleneasher Ruelaser [facility] Health Equipment Installer resentative (appointed verbally by patient or by statute hierarchy) Care Teams Bag Machine Set Up Operator Relationship Specialty Start Date End Date Roger Alexandra MD [address] [place] [address] PCP - General Family Medicine 12/29/19 documented as of this encounter
--- OUTSIDE RECORDS SUMMARY | 2023-11-16 19:20 | External Medical Summary | Summary of Care ---
Author Name Unknown Organization [facility] Address [address] [place] [address] Phone [phone] Care Team Providers Care Steam Oven Operator Name Role Phone Roger Alexandra MD Primary Care Provider [phone] [phone] Reason for Referral * Evaluate & Treat - Unlimited Visits (Within 3 days (urgent)) - Authorized Specialty Diagnoses / Procedures Referred By Contac t Referred To Contact Construction Plant Operator Diagnoses Chronic diastolic CHF (congestive heart failure) (HCC) Roger Alexandra MD [address] [place] [address] Referral ID Status Reason Start Date Expiration Date Visits Requested Visits Authorized [id number] Authorized Specialty Services Required 3 1 1 Question Answer Referral Priority Within 3 days (urgent) Where should this appointment be scheduled? [facility] Program Type Case Management Complex Case Management [facility] Health Device(s) Requested Scale Alarm Settings Standard per protocol Comments Primary Construction Plant Operator: Yara Morris RN Is the patient already enrolled with another [facility] device/service? (If no, will need to "push the button") Yes Does the patient have a physical address? (If no, provide physical address if requesting device) Yes Requested Devices/IVR: Requested Device(s): Scale Please specify if patient needs tray or patient is over 300 lbs: Yes Does the patient need a tray? (Used is patient does not have hard surface for scale) Yes Heart Failure IVR (Interactive Voice Response) Frequency (Default: Weekly-M/W/F OR weekly) Time: Device triggered (default) OR Specific Time: 9 AM Encounter Details Date Type Department Care Team (Late st Contact Info) Description 10/12/2023 Construction Plant Operator Telephone Care Coordination and Integration [address] [place] [address] Yara Morris RN [address] [place] [address] Allergies Active Allergy Reactions Criticality Noted Date Comments Aspirin Unknown 12/12/2007 von Willebrand's disease Salicylates 03/01/2000 von Willebrand's disease documented as of this encounter (statuses as of 10/12/2023) Medications Medication Sig Dispensed Refills Start Date [...] [facility]),Chronic hypoxemic respiratory failure (HCC) Use with nebulizer [...] J44.9 90 mL 3 03/18/2023 Active Nystatin 019486 UNIT/GM External Powder (Nyamyc) apply to affected [...] MCG/ACT Inhalation Aerosol Powder Breath Activated (umeclidinium [place]) Inhale 1 Puff by mouth in the [...] hronic diastolic CHF (congestive heart failure) ([facility]) take 1 tablet by mouth twice a [...] 0 10/09/2023 Active Vitamin D3 1.25 MG (72815 UT) Oral Capsule Take 1 Capsule by mouth once a week. 4 Capsule 0 10/09/2023 Active Hospital, Clinic, or Other Facility Administered Medication Ordered Dose Route Frequency Start Date End Date Status Albuterol Sulfate (Proventil) (2.5 MG/3ML) 0.083% inhalation solution 2.5 mgIndications:COPD, group D, by GOLD 2017 classification ([facility]) 2.5 mg NEBULIZER PRN 03/03/2023 03/02/2024 Acti ve Albuterol Sulfate (Proventil) (5 MG/ML) 0.5% *conc* inhalation solution 2.5 mgIndications:COPD, group D, by GOLD 2017 classification (HCC) 2.5 mg NEBULIZER PRN 03/03/2023 03/02/2024 Acti ve documented as of this encounter (statuses as of 10/12/2023) Active Problems Problem Noted Date Diagnosed Date [...] as of this encounter (statuses as of 10/12/2023) Resolved Problems Problem Noted Date Diagnosed Date [...] defect 02/04/2006 009 Atrial septal aneurysm 02/04/200612/21 detention current use of ant icoagulant therapy 06/01/2005 [...] as of this encounter (statuses as of 10/12/2023) Immunizations Name Administration Dates Next Due H1N1 [...] Telephone Encounter - Yara Morris RN - 10/12/2023 3:11 PM EST CM Progress note S: Spoke with [facility] RN Toña Gilbert, inquiring about patients bluetooth scale, patient does not believe that she received this yet. She also reports that patient declined elementary school social worker visit yesterday. Toña reports that patient had all of her medications today and was able to complete bottle outmed rec, she will fax our office a copy to compare. O: phone call follow up A: spoke with nurse P: re-ordered [facility] bluetooth scale. CM to continue to follow. documented in this encounter Plan of Treatment Upcoming Encounters Date Type Department Care Team (Late st Contact Info) Description 11/29/2023 3:30 PM EST Telemedicine Psychiatry, [facility] [address] [facility], [place] [address] Hugo [facility]cantara MD [address] [facility] [address] 01/07/2024 1:30 PM EST Office Visit Cardiology, [facility] [address] [facility] [place] [address] Saray Muhammad CRNP [address] [place] [address] Scheduled Procedures Name Priority Associated Diagnoses Date/Ti me COLONOSCOPY FLEXIBLE PROXIMA L DIAGNOSTIC Recall History of colonic polyps Scheduled Referrals Name Type Priority Associated Diagnoses Orde r Schedule REMOTE PATIENT MONITORING REFERRAL Referral Within 3 days (urgent) Chronic diastolic CHF (congestive heart failure) (HCC) Ordered: 10/12/2023 Health Maintenance Due Date Last Done Comments [...] 02/16/2022 LUNG CANCER SCREENING - USE SMARTSET 87172 Completed 2023, 03/16/2022, 08/24/2018, Additional history exists [...] failure) (HCC)- Primary Chronic diastolic heart failure documented in this encounter Advance Directives Healthcare Agents on File Name Relationship Healthcare Agent Relationshi p Communication Laura Gant [facility] Rep resentative (appointed verbally by patient or by statute hierarchy) Darlene Gilbert [facility] Rep resentative (appointed verbally by patient or by statute hierarchy) Care Teams Steam Oven Operator Relationship Specialty Start Date End Date Roger Alexandra MD [address] [place] [address] PCP - General Family Medicine 12/29/19 documented as of this encounter
--- OUTSIDE RECORDS SUMMARY | 2023-11-16 19:21 | External Medical Summary | Summary of Care ---
Author Name Unknown Organization [facility] Address [address] [facility] [address] Phone [phone] Care Team Providers Care Clinic Office Assistant Name Role Phone Roger Alexandra MD Primary Care Provider [phone] [phone] Encounter Details Date Type Department Care Team (Late st Contact Info) Description 07/28/2023 Population Health External Data Unspecified Department Allergies Active Allergy Reactions Criticality Noted Date Comments Aspirin Unknown 12/12/2007 von Willebrand's disease Salicylates 03/01/2000 von Willebrand's disease documented as of this encounter (statuses as of 09/27/2023) Medications Medication Sig Dispensed Refills Start Date [...] ([facility]),Chronic hypoxemic respiratory failure (HCC) Use [...] BEDTIME 60 Capsule 5 04/05/2023 Active Nystatin 949845 UNIT/GM External Powder (Nyamyc) apply to affected area twice a day 60 g 1 05/10/2023 Active Ramelteon 8 MG Oral Tablet (Rozerem) Take 1 Tablet by mouth at bedtime. 30 Tablet 1 05/24/2023 Active Furosemide 40 MG Oral Tablet (Lasix)Indications:C hronic diastolic CHF (congestive heart failure) ([facility]) Take 1 Tablet by mouth in the morning and 1 Tablet before bedtime. 180 Tablet 3 06/21/2023 Active Additional Information Patient taking differently:40 mg Oral BID (.AM/PM),Advised to 20 mg twice daily due to hypotension, Reported on 09/15/2023 Isosorbide Mononitrate ER 30 MG Oral Tablet Extended Release 24 Hour (Imdur) take 1 tablet by mouth once daily 30 Tablet 5 07/07/2023 Active Metoprolol Succinate ER 25 MG Oral Tablet Extended Release 24 Hour (Toprol XL) Take 1 Tablet by mouth in the morning. 30 Tablet 11 07/07/2023 Active Vitamin D3 1.25 MG (79783 UT) Oral Capsule Take 1 Capsule by mouth once a week. 12 Capsule 0 07/13/2023 Active Additional Information Patient not taking.Reported on 09/15/2023 ProAir HFA 108 (90 Base) MCG/ACT Inhalation Aerosol SolutionIndications: Bronchitis, complicated Inhale 2 Puffs by mouth in the morning and 2 Puffs at noon and 2 Puffs in the evening and 2 Puffs before bedtime. 18 g 5 07/13/2023 Active Hospital, Clinic, or Other Facility Administered [...] as of this encounter (statuses as of 09/27/2023) Active Problems Problem Noted Date Diagnosed Date Prediabetes 07/13/2023 Decreased functional mobility 08/28/2022 [...] as of this encounter (statuses as of 09/27/2023) Resolved Problems Problem Noted Date Diagnosed Date [...] as of this encounter (statuses as of 09/27/2023) Immunizations Name Administration Dates Next Due H1N1 [...] Care Team (Late st Contact Info) Description 09/29/2023 9:30 AM EST Telemedicine [facility] [place] [address] [place] [address] Sharmaine Johns PA-C [address] [place] [address] Kim Carrizales, Community Health Drapery Supervisor [address] [place] [address] 11/29/2023 3:30 PM EST Telemedicine Psychiatry, [facility] [address] [place] [address] Hugo Alcantara MD [address] [place], [place] [address] 01/07/2024 1:30 PM EST Office Visit Cardiology, [facility] [address] [place], [place] [address] Saray Muhammad CRNP [address] [place] [address] Scheduled Procedures Name Priority Associated Diagnoses Date/Ti [...] 09/04/2023 09/04/2022, 10/15, 04/27/2014, Additional history exists HbA1c 07/12/2024 07/12/2023, 08/15, 04/19/2014, Additional history exists O2 ASSESSMENT COMPLETED IN PAST YEAR FOR COPD 09/22/2024 09/22/2023 COLONOSCOPY-EVERY 5 YRS AGES 18-100 01/14/2028 01/13/2023, 11/12/2020, 05/22/2013, Additional history exists Lipid Panel 03/09/2028 03/09/2023, 08/15, 09/25/2015, Additional history exists Alpha-1 Antitrypsin Completed 02/16/2022 LUNG CANCER SCREENING - USE SMARTSET 88979 Completed 2023, 03/16/2022, 08/24/2018, Additional history exists [...] Agent Relationshi p Communication Laura Gant Adult [facility] Health Radiation Protection Specialist resentative (appointed verbally by patient or by statute hierarchy) Darlene Gilbert Adult [facility] Health Radiation Protection Specialist resentative (appointed verbally by patient or by statute hierarchy) Care Teams Clinic Office Assistant Relationship Specialty Start Date End Date Roger Alexandra MD [address] [place] [address] PCP - General Family Medicine 12/29/19 documented as of this encounter
--- OUTSIDE RECORDS SUMMARY | 2023-11-16 19:21 | External Medical Summary ---
Author Name Unknown Address Unknown Organization K01:[facility] [place] [address] [place] [address] Laboratory Report Ordering Provider Test Date Status NOAM MOORE 09/27/2023 09:50:00 Final Observation Date Value Abnormality Reference (Units ) Status Ferritin 09/27/2023 09:50:00 53 13-150 (ng /mL) Final Postmenopausal women have hi gher ferritin levels than pre-menopausal women. The above reference interval is based on pre-menopausal women. Performing Location [facility] [place] [address] [place] [address]
--- OUTSIDE RECORDS SUMMARY | 2023-11-16 19:21 | External Medical Summary | Summary of Care ---
Author Name Unknown Organization [facility] Address [address] [facility] [place] [address] Phone [phone] Care Team Providers Care Power Saw Operator Name Role Phone Roger Alexandra MD Primary Care Provider [phone] [phone] Reason for Visit * Reason Onset Date Comments Order Request 10/08/2023 Encounter Details Date Type Department Care Team (Late st Contact Info) Description 10/08/[address] [facility] [address] [place] [address] Roger Alexandra MD [address] [place] [address] Order Request Allergies Active Allergy Reactions Criticality Noted Date Comments Aspirin Unknown 12/12/2007 von Willebrand's disease Salicylates 03/01/2000 von Willebrand's disease documented as of this encounter (statuses as of 10/08/2023) Medications Medication Sig Dispensed Refills Start Date [...] BEDTIME 60 Capsule 5 04/05/2023 Active Nystatin 332049 UNIT/GM External Powder (Nyamyc) apply to affected [...] 11 07/07/2023 Active Vitamin D3 1.25 MG (03558 UT) Oral Capsule Take 1 Capsule by [...] MCG/ACT Inhalation Aerosol Powder Breath Activated (umeclidinium [place]) Inhale 1 Puff by mouth in the [...] as of this encounter (statuses as of 10/08/2023) Active Problems Problem Noted Date Diagnosed Date [...] as of this encounter (statuses as of 10/08/2023) Resolved Problems Problem Noted Date Diagnosed Date [...] as of this encounter (statuses as of 10/08/2023) Immunizations Name Administration Dates Next Due H1N1 [...] patient. Name of Requesting Provider: Jarred from [facility] Home Health Order Requested: Toilet Safety Frame [...] wish to have their order completed at? [facility] Fax Number, if applicable: Call Back Number: [phone] If the caller is not a current [...] Description 11/29/2023 3:30 PM EST Telemedicine Psychiatry, [address] [address] Hugo Alcantara MD [address] [place] [address] 01/07/2024 1:30 PM EST Office Visit Cardiology, [facility] [address] [place] [address] Saray Muhammad CRNP [address] [place] [address] Scheduled Procedures Name Priority Associated [...] 02/16/2022 LUNG CANCER SCREENING - USE SMARTSET 94230 Completed 2023, 03/16/2022, 08/24/2018, Additional history exists [...] Name Relationship Healthcare Agent Relationshi p Communication [facility] Rep resentative (appointed verbally by patient or by statute hierarchy) Darlene Gilbert Adult [facility] Plant Tender resentative (appointed verbally by patient or by statute hierarchy) Care Teams Power Saw Operator Relationship Specialty Start Date End Date Roger Alexandra MD [address] [place] [address] PCP - General Family Medicine 12/29/19 documented as of this encounter
--- OUTSIDE RECORDS SUMMARY | 2023-11-16 19:21 | External Medical Summary ---
Author Name Unknown Address Unknown Organization K01:[facility] [place] [address] [place] [address] Laboratory Report Ordering Provider Test Date Status NOAM MOORE 09/27/2023 09:50:00 Final Observation Date Value Abnormality Reference (Units ) Status TSH 09/27/2023 09:50:00 1.18 0.27-4.20 (uIU/mL) Final Performing Location [facility] - [address] [place] [address]
--- OUTSIDE RECORDS SUMMARY | 2023-11-16 19:21 | External Medical Summary ---
Author Name Unknown Address Unknown Organization [id number]:[facility] [place] [address] [place] [address] Laboratory Report Ordering Provider Test Date Status NOAM MOORE 09/27/2023 09:50:00 Final Observation Date Value Abnormality Reference (Units ) Status Iron 09/27/2023 09:50:00 63 33-151 (ug/dL) Final Iron-binding capacity 09/27/2023 09:50:00 245 Below low normal 250-425 (ug/dL) Final Transferrin Sat % 09/27/2023 09:50:00 26 15-55 (%) Final Performing Location [facility] [place] [address] [place] [address]
--- OUTSIDE RECORDS SUMMARY | 2023-11-16 19:21 | External Medical Summary | Summary of Care ---
Author Name Unknown Organization [facility] Address [address] [facility] [address] Phone [phone] Care Team Providers Care Bench Machine Operator Name Role Phone Roger Alexandra MD Primary Care Provider +1 [phone] Encounter Details Date Type Department Care Team (Late st Contact Info) Description 04/16/2023 Population Health External Data Unspecified Department Allergies [...] PD, group D, by GOLD 2017 classification ([facility]),Chronic hypoxemic respiratory failure (HCC) Use with nebulized meds 1 Each 0 09/16/2022 Active Full Kit Nebulizer SetIndications:COPD, group D, by GOLD 2017 classification ([facility] [...] BEFORE BEDTIME 60 Capsule 5 04/05/2023 Active Hospital, Clinic, or Other Facility Administered [...] defect 02/04/2006 009 Atrial septal aneurysm 02/04/200612/21 assistant terminal manager current use of ant icoagulant therapy 06/01/2005 [...] 9:30 AM EST Telemedicine [facility] [place] [address] [place] [address] Sharmaine Johns PA-C [address] [place] [address] Kim Carrizales, Community Health Performance Test Architect [address] [place] [address] 11/29/2023 3:30 PM EST Telemedicine Psychiatry, [address] [address] Hugo Alcantara MD [address] [place] [address] 01/07/2024 1:30 PM EST Office Visit Cardiology, [facility] [address] [place] [address] Saray Muhammad CRNP [address] [place] [address] Scheduled Procedures Name Priority Associated [...] 02/16/2022 LUNG CANCER SCREENING - USE SMARTSET [id number] Completed 2023, 03/16/2022, 08/24/2018, Additional history exists [...] Agent Relationshi p Communication Laura Gant Adult [facility] Health Cell Room Supervisor resentative (appointed verbally by patient or by statute hierarchy) Darlene Gilbert Adult [facility] Health Cell Room Supervisor resentative (appointed verbally by patient or by statute hierarchy) Care Teams Bench Machine Operator Relationship Specialty Start Date End Date Roger Alexandra MD [address] [place] [address] PCP - General Family Medicine 12/29/19 documented as of this encounter
--- OUTSIDE RECORDS SUMMARY | 2023-11-16 19:21 | External Medical Summary ---
Author Name Unknown Address Unknown Organization K01:[facility]ORY [facility] - [address] [place] [address] Laboratory Report Ordering Provider Test Date Status NOAM MOORE 09/27/2023 09:50:00 Final Observation Date Value Abnormality Reference (Units ) Status Folic Acid 09/27/2023 09:50:00 6.1 >4.5 (ng/ mL) Final Performing Location [facility] - [address] [place] [address]
--- OUTSIDE RECORDS SUMMARY | 2023-11-16 19:21 | External Medical Summary | Summary of Care ---
Author Name Unknown Organization [facility] Address [address] [facility] [place] [address] Phone [phone] Care Team Providers Care Stator Plate Washer Name Role Phone Roger Alexandra MD Primary Care Provider [phone] [phone] Reason for Visit * Reason Onset Date Comments Home Health 10/06/2023 Encounter Details Date Type Department Care Team (Late st Contact Info) Description 10/06/2023 Telephone Family Practice [facility] [address] [place] [address] Roger Alexandra MD [address] [place] [address] Home Health Allergies Active Allergy Reactions Criticality Noted Date Comments Aspirin Unknown 12/12/2007 von Willebrand's disease Salicylates 03/01/2000 von Willebrand's disease documented as of this encounter (statuses as of 10/06/2023) Medications Medication Sig Dispensed Refills Start Date [...] BEDTIME 60 Capsule 5 04/05/2023 Active Nystatin 893626 UNIT/GM External Powder (Nyamyc) apply to affected [...] 11 07/07/2023 Active Vitamin D3 1.25 MG (69732 UT) Oral Capsule Take 1 Capsule by [...] MCG/ACT Inhalation Aerosol Powder Breath Activated (umeclidinium [place]) Inhale 1 Puff by mouth in the [...] as of this encounter (statuses as of 10/06/2023) Active Problems Problem Noted Date Diagnosed Date [...] as of this encounter (statuses as of 10/06/2023) Resolved Problems Problem Noted Date Diagnosed Date [...] defect 02/04/2006 009 Atrial septal aneurysm 02/04/200612/21 [facility] current use of ant icoagulant therapy 06/01/2005 [...] as of this encounter (statuses as of 10/06/2023) Immunizations Name Administration Dates Next Due H1N1 [...] Miscellaneous Notes * Telephone Encounter - Blanche Alvarez LPN - 10/06/2023 1:26 PM EST Kimberly, nurse calling from [facility] Reviewing charts, she has not had a nurse visit since last week She wants to add on a few extra visits. Once a week for the next couple weeks as Therapy is still in seeing her. Monitor her CHR as she is not compliant. Verbal Order given. She will fax order for signature documented in this encounter Plan of Treatment Upcoming Encounters Date Type Department Care Team (Late st Contact Info) Description 10/08/2023 1:30 PM EST Telemedicine [facility], [place] [address] [place] [address] Sharmaine Johns PA-C [address] [place] [address] Kim Carrizales, Community Health Post Acute Care Nurse [address] [place] [address] 11/29/2023 3:30 PM EST Telemedicine Psychiatry, [address] [address] Hugo Alcantara MD [address] [place] [address] 01/07/2024 1:30 PM EST Office Visit Cardiology, [facility] [address] [place] [address] Saray Muhammad CRNP [address] [place] [address] Scheduled Procedures Name Priority Associated [...] 02/16/2022 LUNG CANCER SCREENING - USE SMARTSET 85521 Completed 2023, 03/16/2022, 08/24/2018, Additional history exists [...] Agent Relationshi p Communication Laura Gant Adult [facility] Health Material Hauler resentative (appointed verbally by patient or by statute hierarchy) Darlene Gilbert Adult [facility] Health Material Hauler resentative (appointed verbally by patient or by statute hierarchy) Care Teams Stator Plate Washer Relationship Specialty Start Date End Date Roger Alexandra MD [address] [place] [address] PCP - General Family Medicine 12/29/19 documented as of this encounter
--- OUTSIDE RECORDS SUMMARY | 2023-11-16 19:21 | External Medical Summary | Summary of Care ---
Author Name Unknown Organization [facility] Address [address] [place] [address] Phone [phone] Care Team Providers Care Mover Helper Name Role Phone Roger Alexandra MD Primary Care Provider [phone] [phone] Encounter Details Date Type Department Care Team (Late st Contact Info) Description 10/04/2023 Telephone Family Practice [facility] [address] [place] [address] Roger Alexandra MD [address] [place] [address] Allergies Active Allergy Reactions Criticality Noted Date Comments Aspirin Unknown 12/12/2007 von Willebrand's disease Salicylates 03/01/2000 von Willebrand's disease documented as of this encounter (statuses as of 10/05/2023) Medications Medication Sig Dispensed Refills Start Date [...] BEDTIME 60 Capsule 5 04/05/2023 Active Nystatin 903459 UNIT/GM External Powder (Nyamyc) apply to affected [...] 11 07/07/2023 Active Vitamin D3 1.25 MG (66383 UT) Oral Capsule Take 1 Capsule by [...] MCG/ACT Inhalation Aerosol Powder Breath Activated (umeclidinium [place]) Inhale 1 Puff by mouth in [...] as of this encounter (statuses as of 10/05/2023) Active Problems Problem Noted Date Diagnosed Date [...] as of this encounter (statuses as of 10/05/2023) Resolved Problems Problem Noted Date Diagnosed Date [...] defect 02/04/2006 009 Atrial septal aneurysm 02/04/200612/21 watermelon harvesting supervisor current use of ant icoagulant therapy 06/01/2005 03/05/2021 Overview: ICD-10 update of inactive term Carotid stenosis, non-symptomatic 03/16/2005 03/14/2007 Medical home patient encounter 07/31/2004 07/27/2023 CVA 07/31/2004 02/28/2009 Overview: Modified per CVA protocol #8 ATRIAL SEPTAL ANEURYSM(aka ANEURYSM) 07/31/2004 02/04/2006 Malaise and fatigue 03/07/2004 05/01/20 11 Back disorder 03/07/2004 05/02/2012 Mixed dyslipidemia 03/07/2004 12// 9 Overview: Per Lipid Taxonomy. CEREBROVASC DISEASE NEC 02/01/200412/16 Pelvic pain in female 03/26/20032019 OBESITY, UNSPECIFIED 07/19/2002 010 Overview: Per Obesity Taxonomy EXT ASTHMA W-O STAT ASTH Tobacco use disorder 021 documented as of this encounter (statuses as of 10/05/2023) Immunizations Name Administration Dates Next Due H1N1 [...] Encounter - Kim De Guzman LPN - 10/05/2023 9:54 AM EST fyi * Telephone Encounter - Jeronimo Jones OSA - 10/04/2023 3:42 PM EST Herve with [facility] home health, thor therapy called and wanted to let you know the Pt with her this week and moved her visit to next week documented in this encounter Plan of Treatment Upcoming Encounters Date Type Department Care Team (Late st Contact Info) Description 10/08/2023 1:30 PM EST Telemedicine [facility], [place] [address] [place] [address] Sharmaine Johns PA-C [address] [place] [address] Kim Carrizales, Community Health Mat Roller [address] [place] [address] 11/29/2023 3:30 PM EST Telemedicine Psychiatry, [facility] [address] [place] [address] Hugo Alcantara MD [address] [place], [place] [address] 01/07/2024 1:30 PM EST Office Visit Cardiology, [facility] [address] [place] [address] Saray Muhammad CRNP [address] [place] [address] Scheduled Procedures Name Priority Associated [...] 02/16/2022 LUNG CANCER SCREENING - USE SMARTSET [id number] Completed 2023, 03/16/2022, 08/24/2018, Additional history exists [...] Agent Relationshi p Communication Laura Gant Adult [facility] Health Manager Image resentative (appointed verbally by patient or by statute hierarchy) Darlene Gilbert Adult [facility] Health Manager Image resentative (appointed verbally by patient or by statute hierarchy) Care Teams Mover Helper Relationship Specialty Start Date End Date Roger Alexandra MD [address] [place] [address] PCP - General Family Medicine 12/29/19 documented as of this encounter
--- OUTSIDE RECORDS SUMMARY | 2023-11-16 19:21 | External Medical Summary ---
Author Name Unknown Address Unknown Organization K01:[facility] [place] - [address] [facility] [place] [address] Laboratory Report Ordering Provider Test Date Status NOAM MOORE 09/27/2023 09:50:00 Final Observation Date Value Abnormality Reference (Units ) Status SYNC LEUKOCYTES IN BLOOD BY AUTOMATED COUNT 09/27/2023 09:50:00 4.74 4.00-10.80 (K/uL) Final Segs 09/27/2023 09:50:00 58.5 40.0-75.0 (%) Final Lymphs % 09/27/2023 09:50:00 30.6 18.0-42.0 (%) Final Monos 09/27/2023 09:50:00 7.6 1.0-11.0 (%) Final Eosinophils 09/27/2023 09:50:00 2.3 0.0-6.0 (%) Final Basos 09/27/2023 09:50:00 0.6 0.0-2.0 (%) Final Immature Granulocyte, Percent 09/27/2023 09:50:00 0.4 0.0-2.0 (%) Final Absolute Segs 09/27/2023 09:50:00 2.77 1.80-7.70 (K/uL) Final Lymphs, absolute 09/27/2023 09:50:00 1.45 1.00-4.80 (K/ul) Final Monos, Abs 09/27/2023 09:50:00 0.36 0.00-1.10 (K/uL) Final Eos, Abs 09/27/2023 09:50:00 0.11 0.00-0.70 (K/uL) Final Basos, Abs 09/27/2023 09:50:00 0.03 0.00-0.20 (K/uL) Final Immature Granulocytes, Number 09/27/2023 09:50:00 0.02 0.00-0.20 (K/uL) Final Performing Location [facility] [place] - [address] [facility] [address]
--- OUTSIDE RECORDS SUMMARY | 2023-11-16 19:21 | External Medical Summary | Summary of Care ---
Author Name Unknown Organization [facility] Address [address] [facility] [place] [address] Phone [phone] Care Team Providers Care Sports Management Professor Name Role Phone Roger Alexandra MD Primary Care Provider [phone] [phone] Reason for Visit * Reason Onset Date Comments Order Request 07/03/2023 Encounter Details Date Type Department Care Team (Late st Contact Info) Description 07/03/2023 Telephone Family Practice [facility] [address] [place] [address] Roger Alexandra MD [address] [place] [address] Order Request Allergies Active Allergy Reactions Criticality Noted Date Comments Aspirin Unknown 12/12/2007 von Willebrand's disease Salicylates 03/01/2000 von Willebrand's disease documented as of this encounter (statuses as of 10/02/2023) Medications Medication Sig Dispensed Refills Start Date [...] COPD, group D, by GOLD 2017 classification ([facility]),Chronic hypoxemic respiratory failure ([facility]) Use with nebulized meds 1 Each 0 2 Active Full Kit Nebulizer SetIndications: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 45 Tablet 2 3 Active Additional Information Patient taking differently: 30 [...] BEFORE BEDTIME 60 Capsule 5 3 Active Nystatin 500455 UNIT/GM External Powder (Nyamyc) apply to affected area twice a day 60 g 1 3 Active Ramelteon 8 MG Oral Tablet (Rozerem) Take 1 Tablet by mouth at bedtime. 30 Tablet 1 3 Active Furosemide 40 MG Oral Tablet (Lasix)Indications :Chronic diastolic CHF (congestive heart failure) (HCC) Take 1 Tablet by mouth in the morning and 1 Tablet before bedtime. 180 Tablet 3 3 Active Additional Information Patient taking differently:40 mg Oral BID (.AM/PM),Advised to 20 mg twice daily due to hypotension, Reported on 09/15/2023 ProAir HFA 108 (90 Base) MCG/ACT Inhalation Aerosol SolutionIndication s:Bronchitis, complicated Inhale 2 Puffs by mouth in the morning and 2 Puffs at noon and 2 Puffs in the evening and 2 Puffs before bedtime. 18 g 1 2 023 Discontinued(Re fill) Isosorbide Mononitrate ER 30 MG Oral Tablet Extended Release 24 Hour (Imdur) take 1 tablet by mouth daily 30 Tablet 5 3 023 Discontinued Solifenacin Succinate 10 MG Oral Tablet (VESIcare) Take 1 Tablet by mouth in the morning. 30 Tablet 6 3 023 Discontinued(Re fill) busPIRone HCl 10 MG Oral Tablet (Buspar) Take 2 Tablets by mouth in the morning and 2 Tablets before bedtime. 120 Tablet 2 3 023 Discontinued(Re fill) Ferrous Sulfate 325 (65 Fe) MG Oral Tablet (Feosol) 1 Tablet. 0 3 023 Discontinued(Pr dication List Clean Up) Cefuroxime Axetil 500 MG Oral Tablet (Ceftin) Take 1 Tablet by mouth in the morning and 1 Tablet before bedtime. 14 Tablet 0 3 023 Discontinued Warfarin Sodium 5 MG Oral Tablet (Coumadin)Indicati ons:Paroxysmal atrial fibrillation (HCC) Take 0.5-1 Tablets by mouth every evening. OR DIRECTED BY [facility] 90 Tablet 3 3 023 Discontinued LORazepam 0.5 MG Oral Tablet (Ativan) Take 1 Tablet by mouth every 8 hours as needed for Anxiety. Do not start before June 24, 2023. 90 Tablet 1 3 023 Discontinued(Re fill) Baclofen 10 MG [...] With food.. 20 Capsule 0 3 023 Discontinued Acetaminophen-Code ine 300-30 MG [...] as of this encounter (statuses as of 10/02/2023) Active Problems Problem Noted Date Diagnosed Date [...] as of this encounter (statuses as of 10/02/2023) Resolved Problems Problem Noted Date Diagnosed Date [...] defect 02/04/2006 009 Atrial septal aneurysm 02/04/200612/21 assisted current use of ant icoagulant therapy 06/01/2005 [...] as of this encounter (statuses as of 10/02/2023) Immunizations Name Administration Dates Next Due H1N1 [...] encounter Miscellaneous Notes * Telephone Encounter - Caitlin Negron OSA - 07/03/2023 1:42 PM EDT An order was requested for this patient. Name of Requesting Provider: Tresa from [facility] Order Requested: UA / culture (to replace order from 06/21) Diagnosis/Reason for Request: they need an order for the date they will actually collect which willbe 07/05 - so order needs changed to 07/05 and then sent via fax (preferred) or verbal If order request is for Mammogram: Is the patient having any breast symptoms? N/A Is there a chance of ? N/A Has the patient had any breast problems in the past? NA Does the order need to be faxed somewhere? If so, where?: yes Fax Number, if applicable: [phone] Call Back Number: [phone] If the caller is not a current [...] 1:30 PM EST Telemedicine [facility], [place] [address] [place] [address] Sharmaine Johns PA-C [address] [place] [address] Kim Carrizales, Community Health Coding Auditor [address] [place] [address] 11/29/2023 3:30 PM EST Telemedicine Psychiatry, [facility] 200 [place] [address] Hugo Alcantara MD [address] [place], [place] [id number] 01/07/2024 1:30 PM EST Office Visit Cardiology, [facility] [address] [facility] [place] [address] Saray Muhammad CRNP [address] [place] [address] Scheduled Procedures Name Priority Associated Diagnoses Date/Ti [...] 02/16/2022 LUNG CANCER SCREENING - USE SMARTSET [id number] Completed 2023, 03/16/2022, 08/24/2018, Additional history exists [...] Healthcare Agent Relationshi p Communication Laura Stalin Adult [facility] Health Eligibility Counselor resentative (appointed verbally by patient or by statute hierarchy) Darlene Gilbert Adult [facility] Health Eligibility Counselor resentative (appointed verbally by patient or by statute hierarchy) Care Teams Sports Management Professor Relationship Specialty Start Date End Date Roger Alexandra MD [address] [address] PCP - General Family Medicine 12/29/19 documented as of this encounter
--- OUTSIDE RECORDS SUMMARY | 2023-11-16 19:21 | External Medical Summary ---
Author Name Unknown Address Unknown Organization K01:[facility] [place] [address] [facility] [place] [address] Laboratory Report Ordering Provider Test Date Status NOAM MOORE 09/27/2023 09:50:00 Final Observation Date Value Abnormality Reference (Units ) Status WBC, Total 09/27/2023 09:50:00 4.74 4.00-10.8 0 (K/uL) Final RBC 09/27/2023 09:50:00 3.86 3.85-5.15 (M/uL) Final Hemoglobin 09/27/2023 09:50:00 9.7 Below low normal 12 .0-15.3 (g/dL) Final Anemia reflex testing trigge rs on a HGB < 12.0 for Females and HGB < 13.0 for Males in accordance with the WHO Anemia Guidelines
Anemia reflex testing triggers on a HGB < 12.0 for Females and HGB < 13.0 for Males in accordance with the WHO Anemia Guidelines HCT 09/27/2023 09:50:00 35.0 Below low normal 36. 0-45.2 (%) Final MCV 09/27/2023 09:50:00 90.7 81.5-97.5 (fL) Final MCH 09/27/2023 09:50:00 25.1 27.0-34.0 (pg) Final MCHC 09/27/2023 09:50:00 27.7 32.0-36.0 (g/dL) Final RDW 09/27/2023 09:50:00 19.9 11.5-15.5 (%) Final Platelets 09/27/2023 09:50:00 331 140-400 (K /uL) Final MPV 09/27/2023 09:50:00 8.4 6.6-11.1 ( fL) Final Nucleated erythrocytes/100 leukocytes [Ratio] in Blood by Automated count 09/27/2023 09:50:00 0 <=0 (/100 WBCs) Final Performing Location [facility] [place] [address] [facility] [address]
--- OUTSIDE RECORDS SUMMARY | 2023-11-16 19:21 | External Medical Summary | Summary of Care ---
Author Name Unknown Organization [facility] Address [address] [place] [address] Phone [phone] Care Team Providers Care Open Hearth Worker Name Role Phone Roger Alexandra MD Primary Care Provider [phone] Reason for Visit * Reason Onset Date Comments Appointment 09/29/2023 Encounter Details Date Type Department Care Team (Late st Contact Info) Description 09/29/2023 Telephone [facility] [place] [address] [place], [place] [phone] Services, Scheduling [address] [place] [address] Appointment (//) Allergies Active Allergy Reactions Criticality Noted Date Comments Aspirin Unknown 12/12/2007 von Willebrand's disease Salicylates 03/01/2000 von Willebrand's disease documented as of this encounter (statuses as of 09/29/2023) Medications Medication Sig Dispensed Refills Start Date [...] BEDTIME 60 Capsule 5 04/05/2023 Active Nystatin 921589 UNIT/GM External Powder (Nyamyc) apply to affected [...] 11 07/07/2023 Active Vitamin D3 1.25 MG (83935 UT) Oral Capsule Take 1 Capsule by [...] MCG/ACT Inhalation Aerosol Powder Breath Activated (umeclidinium [place]) Inhale 1 Puff by mouth in the [...] as of this encounter (statuses as of 09/29/2023) Active Problems Problem Noted Date Diagnosed Date [...] as of this encounter (statuses as of 09/29/2023) Resolved Problems Problem Noted Date Diagnosed Date [...] 02/04/2006 009 Atrial septal aneurysm 02/04/200612/21 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 current use of ant icoagulant therapy [...] as of this encounter (statuses as of 09/29/2023) Immunizations Name Administration Dates Next Due H1N1 [...] Telephone Encounter - Edis Bee OSA - 09/29/2023 9:40 AM EST Call to pt and confirmed rescheduled kaco telemed to 10/08 at 130/2pm, pt agreeable documented in this encounter Plan of Treatment Upcoming Encounters Date Type Department Care Team (Late st Contact Info) Description 10/08/2023 1:30 PM EST Telemedicine [facility], [place] [address] [place] [address] Sharmaine Johns PA-C [address] [place], [place] [phone] Kim Carrizales, Community Health Hook Puller [address] [place] [address] 11/29/2023 3:30 PM EST Telemedicine Psychiatry, [facility] [address] [facility] [place] [address] Hugo Alcantara MD [address] [place] [address] 01/07/2024 1:30 PM EST Office Visit Cardiology, [facility] [address] [place] [address] Saray Muhammad CRNP [address] [place] [address] Scheduled Procedures Name Priority Associated Diagnoses Date/Ti [...] 02/16/2022 LUNG CANCER SCREENING - USE SMARTSET [id number] Completed 2023, 03/16/2022, 08/24/2018, Additional history exists [...] Agent Relationshi p Communication Laura Gant Adult [facility] Health Parcel Post Officer resentative (appointed verbally by patient or by statute hierarchy) Darlene Gilbert Adult [facility] Health Parcel Post Officer resentative (appointed verbally by patient or by statute hierarchy) Care Teams Open Hearth Worker Relationship Specialty Start Date End Date Roger Alexandra MD [address] [address] PCP - General Family Medicine 12/29/19 documented as of this encounter
--- OUTSIDE RECORDS SUMMARY | 2023-11-16 19:21 | External Medical Summary ---
Author Name Unknown Address Unknown Organization K0G:[facility]ATORY [place] [facility] - [address] [place] [address] Laboratory Report Ordering Provider Test Date Status NOAM MOORE 09/27/2023 09:50:00 Final Observation Date Value Abnormality Reference (Units ) Status BUN 09/27/2023 09:50:00 11 6-20 (mg/dL) Final Creatinine 09/27/2023 09:50:00 0.9 0.5-1.0 (mg/dL) Final Glomerular filtration rate/1.73 sq M.predicted [Volume Rate/Area] in Serum, Plasma or Blood by Creatinine-based formula (CKD-EPI) 09/27/2023 09:50:00 71 >=60 (mL/min) Final eGFR is calculated based on the CKD-EPI 2020 equation SODIUM 09/27/2023 09:50:00 139 135-146 (m mol/L) Final Potassium 09/27/2023 09:50:00 4.1 3.5-5.1 (m mol/L) Final Cl 09/27/2023 09:50:00 98 98-107 (mm ol/L) Final CO2 09/27/2023 09:50:00 33 Above high normal 22 -32 (mmol/L) Final Anion gap 09/27/2023 09:50:00 8 7-15 (mmol /L) Final Glucose 09/27/2023 09:50:00 115 70-120 (mg /dL) Final Albumin 09/27/2023 09:50:00 2.8 Below low normal 3.8 -5.0 (g/dL) Final AST (Aspartate aminotransferase) 09/27/2023 09:50:00 20 10-35 (U/L) Fin al Result may be falsely elevat ed due to hemolysis. Alk Phos 09/27/2023 09:50:00 95 35-130 (U/ L) Final Bilirubin, Total 09/27/2023 09:50:00 0.3 <=1 .2 (mg/dL) Final Calcium 09/27/2023 09:50:00 8.7 8.4-10.2 ( mg/dL) Final Protein 09/27/2023 09:50:00 5.5 Below low normal 6.0 -8.3 (g/dL) Final ALT (Alanine aminotransferase) 09/27/2023 09:50:00 13 10-35 (U/L) Negrito knott Performing Location LABORATORY [place] [facility] - [address] [facility] [address]
--- OUTSIDE RECORDS SUMMARY | 2023-11-16 19:21 | External Medical Summary | Summary of Care ---
Author Name Unknown Organization [facility] Address [address] [address] Phone [phone] Care Team Providers Care Terminal Gauger Supervisor Name Role Phone oRger Alexandra MD Primary Care Provider [phone] Reason for Visit * Reason Onset Date Comments Advice 09/29/2023 [facility] Home Health Encounter Details Date Type Department Care Team (Late st Contact Info) Description 09/29/2023 Telephone Family Practice [facility] [address] [address] Roger Alexandra MD [address] [address] Advice ([facility] Home Health) Allergies Active Allergy Reactions Criticality Noted Date [...] GOLD 2017 classification ([facility]),Chronic hypoxemic respiratory failure ([facility]) Use with nebulized meds 1 Each 0 09/16/2022 Active Full Kit Nebulizer SetIndications:COPD, group D, by GOLD 2017 classification ([facility]),Chronic hypoxemic respiratory failure ([facility]) Use with nebulizer 1 Each [...] BEDTIME 60 Capsule 5 04/05/2023 Active Nystatin 999367 UNIT/GM External Powder (Nyamyc) apply to affected area twice a day 60 g 1 05/10/2023 Active Ramelteon 8 MG Oral Tablet (Rozerem) Take 1 Tablet by mouth at bedtime. 30 Tablet 1 05/24/2023 Active Furosemide 40 MG Oral Tablet (Lasix)Indications:C hronic diastolic CHF (congestive heart failure) ([facility]) Take 1 Tablet by mouth in the [...] 11 07/07/2023 Active Vitamin D3 1.25 MG (90069 UT) Oral Capsule Take 1 Capsule by [...] MCG/ACT Inhalation Aerosol Powder Breath Activated (umeclidinium [place]) Inhale 1 Puff by mouth in the [...] [facility]) 2.5 mg NEBULIZER PRN 03/03/2023 03/02/2024 Acti ve Albuterol Sulfate (Proventil) (5 MG/ML) 0.5% *conc* inhalation solution 2.5 mgIndications:COPD, group D, by GOLD 2017 classification ([facility]) 2.5 mg NEBULIZER PRN 03/03/2023 [...] Back disorder 03/07/2004 05/02/2012 Mixed dyslipidemia 03/07/2004 12 9 Overview: Per Lipid Taxonomy. CEREBROVASC DISEASE [...] Progress Notes * Yara Morris RN - 09/29/2023 11:52 AM EST Spke with Nurse Josseline at [facility] intake they have accepted a verbal order for OT and SW. documented in this encounter Miscellaneous Notes * Telephone Encounter - Roger Alexandra MD - 09/29/2023 11:12 AM EST Please put in whatever orders are needed and send back * Telephone Encounter - Temi West LPN - 09/29/2023 10:15 AM EST HH Concerns Herve Speech Therapist , Calling from: [facility] Report/Concerns of: Pain and elevated HR. Vitals: T 98.5 P 115 with activity and 109 with relaxation RR 18 BP 120/76 SP O2 99% with 4 LPM via NC Lung sounds: abnormal on the exhale, which is louder on the right and sounds like a groan on exhale. Pt has a dry cough. Pt took inhalers this morning but has not done a nebulizer tx yet today. Pt reports coughing a thick yellow phlegm yesterday but this is not new for the pt. Narrative: States that the pt reported pain 8/10 to bilateral ankles when sitting on the edge of bed. Pt then laid back down in bed and pain in bilateral ankles went down to a 6.5/10. Is asking if an order for OT could be provided to assist with safety and self care? Is also requesting if an order for psychiatric social worker could be provided to assist with finding additional resources that could help the pt in her home and if PCP is agreeable with ST seeing pt for one more visit next week? Reports that the pt is wanting to wear oxygen at 5 LPM at all times. Asks that if PCP is agreeable,requests an updated order. Pt is tearful and anxious at this time. Made Herve aware of medication changes as per 09/20/2023 psychiatry appt. Asks that the pt is called back pt with any advice and that she is called back regarding order requests. Please fax new orders to [phone] Please advise. * Telephone Encounter - Mali Cedeño OSA - 09/29/2023 10:12 AM EST Reason for patient's call: Herve [facility] Home Health Speech Therapist,calling regarding oxygen level and elevated heart rate Caller was transferred to [facility] at the nurse line. documented in this encounter Plan of Treatment Upcoming Encounters Date Type Department Care Team (Late st Contact Info) Description 10/08/2023 1:30 PM EST Telemedicine [facility], [place] [address] [place] [address] Sharmaine Johns PA-C [address] [place] [address] Kim Carrizales, Community Health Pipe Recovery Specialist [address] [place] [address] 11/29/2023 3:30 PM EST Telemedicine Psychiatry, [address] [address] Hugo Alcantara MD [address] [place] [address] 01/07/2024 1:30 PM EST Office Visit Cardiology, [facility] [address] [place], [place] [phone] Saray Muhammad CRNP [address], [place] [phone] Scheduled Procedures Name Priority Associated Diagnoses Date/Ti [...] 02/16/2022 LUNG CANCER SCREENING - USE SMARTSET 23890 Completed 2023, 03/16/2022, 08/24/2018, Additional history exists [...] Relationshi p Communication Laura Gant Adult [facility] Health Pr Specialist resentative (appointed verbally by patient or by statute hierarchy) Darlene Gilbert [facility] Health Pr Specialist resentative (appointed verbally by patient or by statute hierarchy) Care Teams Terminal Gauger Supervisor Relationship Specialty Start Date End Date Roger Alexandra MD [address] [address] PCP - General Family Medicine 12/29/19 documented as of this encounter
--- OUTSIDE RECORDS SUMMARY | 2023-11-16 19:21 | External Medical Summary ---
Author Name Unknown Address Unknown Organization K01:LABORATORY [facility] [place] - [address] [address] Laboratory Report Ordering Provider Test Date Status TERESANOAM AALIYAH 09/27/2023 09:50:00 Final Observation Date Value Abnormality Reference (Units ) Status Retic, % (auto) 09/27/2023 09:50:00 1.19 0.80-1.90 (%) Final Reticulocytes, Absolute 09/27/2023 09:50:00 44.9 31.3-100.1 (K/uL) Final Reticulocyte fraction, immature 09/27/2023 09:50:00 43.7 Above high normal 2.5-20.6 (%) Final Reticulocyte HGB 09/27/2023 09:50:00 38.5 Above high normal 29.7-37.4 (pg) Final Performing Location [facility] [place] - [address] [place] [address]
--- OUTSIDE RECORDS SUMMARY | 2023-11-16 19:21 | External Medical Summary ---
Author Name Unknown Address Unknown Organization K01:LAB[facility]ATORY [facility] [place] - [address] [address] Laboratory Report Ordering Provider Test Date Status NOAM MOORE 09/27/2023 09:50:00 Final Observation Date Value Abnormality Reference (Units ) Status Vitamin B12 09/27/2023 09:50:00 001 102-2655 (pg/mL) Final Performing Location LABORATORY C - [address] [place] [address]
--- OUTSIDE RECORDS SUMMARY | 2023-11-16 19:22 | External Medical Summary | Summary of Care ---
Author Name Unknown Organization [facility] Address [address] [place] [address] Phone [phone] Care Team Providers Care Electronic Assembler Group Leader Name Role Phone Roger Alexandra MD Primary Care Provider [phone] Reason for Visit * Reason Onset Date Comments case management 09/23/2023 Encounter Details Date Type Department Care Team (Late st Contact Info) Description 09/23/2023 Oil And Gas Field Technician Telephone Care Coordination [address], [place] [phone] Saray Jones LSW [address] [place] [address] case management Allergies Active Allergy Reactions Criticality Noted Date Comments Aspirin Unknown 12/12/2007 von Willebrand's disease Salicylates 03/01/2000 von Willebrand's disease documented as of this encounter (statuses as of 09/23/2023) Medications Medication Sig Dispensed Refills Start Date [...] BEDTIME 60 Capsule 5 04/05/2023 Active Nystatin 466413 UNIT/GM External Powder (Nyamyc) apply to affected [...] 11 07/07/2023 Active Vitamin D3 1.25 MG (38118 UT) Oral Capsule Take 1 Capsule by [...] MCG/ACT Inhalation Aerosol Powder Breath Activated (umeclidinium [place]) Inhale 1 Puff by mouth in the [...] [facility]) 2.5 mg NEBULIZER PRN 03/03/2023 03/02/2024 Acti ve Albuterol Sulfate (Proventil) (5 MG/ML) 0.5% *conc* inhalation solution 2.5 mgIndications:COPD, group D, by GOLD 2017 classification ([facility]) 2.5 mg NEBULIZER PRN 03/03/2023 03/02/2024 Acti ve documented as of this encounter (statuses as of 09/23/2023) Active Problems Problem Noted Date Diagnosed Date [...] as of this encounter (statuses as of 09/23/2023) Resolved Problems Problem Noted Date Diagnosed Date [...] as of this encounter (statuses as of 09/23/2023) Immunizations Name Administration Dates Next Due H1N1 2009 Influenza, IM 12/19/2009 Pneumococcal Polysaccharide PPV23 (Pneumovax) 03/20/2009 SEASONAL INFLUENZA, PF, 6 M & Above, IM , (FLULAVAL or FLUZONE) 08/28/2022,11/11/2021 Seasonal Influenza Virus Vac cine, Unspecified Formulation 11/11/2021,09/15/2020,10/03/2017,08/21,08/01/2014,07/30/2014,08/09/2013 ,08/03/2012,08/24/2011,08/06/2010,/02/2010,09/20/2007,09/04/2003 Seasonal Influenza, Quadriva lent, No Preserve, IM [...] encounter Miscellaneous Notes * Telephone Encounter - Cost Estimating ClerkSaray LSW - 09/23/2023 10:17 AM EST Images from the original note were not included. [facility] Goal Review: S. [facility] spoke w/ pt over the phone. Pt reports that she is doing okay but has some feelings of depression since she was in the hospital for a stroke. Pt had medication adjustments with Psychiatry on the and will follow back up in November. [facility] discussed therapy and GAH w/ pt. Pt states Dr. Alcantara discussed therapy w/ pt but is not interested at this time. Pt declines feelings of hopelessness and sleep is "so- so". Pt is eating around 2 meals per day. Granddaughter, Laura, continues to support pt daily. No additional concerns expressed at this time. O. Over the phone A. Pt spoke in a clear level tone of voice. Denies SI/HI. Pt reports some feelings of depression but no feelings of hopelessness. Pt requested to get off the phone at this time but is agreeable for BHCM f/u in 6 weeks P. BHCM to f/u w/ pt for review in 6-8 weeks. Saray Jones RESTAURANT CREW, GEAR CODING MACHINE OPERATOR Behavioral Health Oil And Gas Field Technician (Pronouns: she, her, hers) Care Coordination Integration home improvement contractor documented in this encounter Plan of Treatment Upcoming Encounters Date Type Department Care Team (Late st Contact Info) Description 09/27/2023 9:20 AM EST Laboratory Lab Mobile Phlebotomy [facility] [address] [place] [address] [facility] Mobile Home Draw [address] [place] [address] 09/29/2023 9:30 AM EST Telemedicine [facility], [place] [address] [place] [address] Sharmaine Johns PA-C [address] [place] [address] Kim Carrizales, Community Health Barber Tool Sharpener [address] [place] [address] 11/29/2023 3:30 PM EST Telemedicine Psychiatry, [address] [place] [address] Hugo Alcantara MD [address] [place] [address] 01/07/2024 1:30 PM EST Office Visit Cardiology, [facility] [address] [place] [address] Saray Muhammad CRNP [address] [address] Scheduled Procedures Name Priority Associated Diagnoses Date/Ti [...] 02/16/2022 LUNG CANCER SCREENING - USE SMARTSET 99025 Completed 2023, 03/16/2022, 08/24/2018, Additional history exists [...] Agent Relationshi p Communication Laura Gant Adult [facility] Health Line Lead resentative (appointed verbally by patient or by statute hierarchy) Darlene Gilbert [facility] Health Line Lead resentative (appointed verbally by patient or by statute hierarchy) Care Teams Electronic Assembler Group Leader Relationship Specialty Start Date End Date Roger Alexandra MD [address] [address] PCP - General Family Medicine 12/29/19 documented as of this encounter
--- OUTSIDE RECORDS SUMMARY | 2023-11-16 19:22 | External Medical Summary | Summary of Care ---
Author Name Unknown Organization [facility] Address [address] [place] [address] Phone [phone] Care Team Providers Care Picture Framer Name Role Phone Roger Alexandra MD Primary Care Provider [phone] Encounter Details Date Type Department Care Team (Late st Contact Info) Description 09/22/2023 11:30 AM EST Home Visit Care Coordination [address] [place], [place] [phone] Kim Carrizales, Community Health Director Of Business Continuity [address], [place] [phone] Allergies Active Allergy Reactions Criticality Noted Date Comments Aspirin Unknown 12/12/2007 von Willebrand's disease Salicylates 03/01/2000 von Willebrand's disease documented as of this encounter (statuses as of 09/22/2023) Medications Medication Sig Dispensed Refills Start Date [...] BEDTIME 60 Capsule 5 04/05/2023 Active Nystatin 859764 UNIT/GM External Powder (Nyamyc) apply to affected [...] 11 07/07/2023 Active Vitamin D3 1.25 MG (09360 UT) Oral Capsule Take 1 Capsule by [...] MCG/ACT Inhalation Aerosol Powder Breath Activated (umeclidinium [place]) Inhale 1 Puff by mouth in the [...] as of this encounter (statuses as of 09/22/2023) Active Problems Problem Noted Date Diagnosed Date [...] as of this encounter (statuses as of 09/22/2023) Resolved Problems Problem Noted Date Diagnosed Date [...] defect 02/04/2006 009 Atrial septal aneurysm 02/04/200612/21 remote computer terminal operator current use of ant icoagulant therapy [...] as of this encounter (statuses as of 09/22/2023) Immunizations Name Administration Dates Next Due H1N1 [...] Sign Reading Time Taken Comments Blood Pressure 130/60 09/22/2023 12:26 PM EST Pulse 104 09/22/2023 12:26 PM EST Temperature 37 C (98.6 F) 09/22/2023 12:26 PM EST Respiratory Rate - - Oxygen Saturation 93% 09/22/2023 12:26 PM EST Inhaled Oxygen Concentration - - Weight - - Height - - Body Mass Index - - documented in this encounter Progress Notes * Kim Carrizales, Community Health Director Of Business Continuity - 09/22/2023 11:30 AM EST EMERSON went out to home and completed vital check Electronically signed by Kim Carrizales, Community Health Director Of Business Continuity at 09/22/2023 12:29 PM EST documented in this encounter Plan of Treatment Upcoming Encounters Date Type Department Care Team (Late st Contact Info) Description 09/27/2023 9:20 AM EST Laboratory Lab Mobile Phlebotomy [facility] [place] [address] [place] [address] [facility] Mobile Home Draw [address] [place] [address] 09/29/2023 9:30 AM EST [facility] [address] [place] [address] Sharmaine Johns PA-C [address] [place] [address] Kim Carrizales, Community Health Director Of Business Continuity [address] [place] [address] 11/29/2023 3:30 PM EST Telemedicine Psychiatry, [address] [address] Hugo Alcantara MD [address] [place] [address] 01/07/2024 1:30 PM EST Office Visit Cardiology, [facility] [address] [place] [address] Saray Muhammad CRNP [address] [place] [address] Scheduled Procedures Name Priority Associated [...] ASSESSMENT COMPLETED IN PAST YEAR FOR COPD 09/15/2024 09/15/2023 COLONOSCOPY-EVERY 5 YRS AGES 18-100 01/14/2028 01/13/2023, 11/12/2020, 05/22/2013, Additional history exists Lipid Panel 03/09/2028 03/09/2023, 08/15, 09/25/2015, Additional history exists Alpha-1 Antitrypsin Completed 02/16/2022 LUNG CANCER SCREENING - USE SMARTSET 07704 Completed 2023, 03/16/2022, 08/24/2018, Additional history exists [...] patient or by statute hierarchy) Darlene Gilbert [facility] Health Planer Mill Grader resentative (appointed verbally by patient or by statute hierarchy) Care Teams Picture Framer Relationship Specialty Start Date End Date Roger Alexandra MD [address] [address] PCP - General Family Medicine 12/29/19 documented as of this encounter
--- OUTSIDE RECORDS SUMMARY | 2023-11-16 19:22 | External Medical Summary | Summary of Care ---
Author Name Unknown Organization [facility] Address [address] [facility] [place] [address] Phone [phone] Care Team Providers Care Landscape Contractor Name Role Phone Roger Alexandra MD Primary Care Provider [phone] Reason for Visit * Reason Onset Date Comments Home Health 09/23/2023 Encounter Details Date Type Department Care Team (Late st Contact Info) Description 09/23/2023 Telephone Family Practice [facility] [address] [place] [address] Roger Alexandra MD [address] [place] [address] Home Health Allergies Active Allergy Reactions Criticality Noted Date Comments Aspirin Unknown 12/12/2007 von Willebrand's disease Salicylates 03/01/2000 von Willebrand's disease documented as of this encounter (statuses as of 09/24/2023) Medications Medication Sig Dispensed Refills Start Date [...] BEDTIME 60 Capsule 5 04/05/2023 Active Nystatin 789682 UNIT/GM External Powder (Nyamyc) apply to affected [...] 11 07/07/2023 Active Vitamin D3 1.25 MG (56490 UT) Oral Capsule Take 1 Capsule by [...] MCG/ACT Inhalation Aerosol Powder Breath Activated (umeclidinium [place]) Inhale 1 Puff by mouth in the [...] as of this encounter (statuses as of 09/24/2023) Active Problems Problem Noted Date Diagnosed Date [...] as of this encounter (statuses as of 09/24/2023) Resolved Problems Problem Noted Date Diagnosed Date [...] as of this encounter (statuses as of 09/24/2023) Immunizations Name Administration Dates Next Due H1N1 [...] Telephone Encounter - Yara Morris RN - 09/24/2023 1:41 PM EST Called and talked to MICHELLE Jose at [facility]. He reports they need additional visits to continue to work with the patient in her home. They will fax orders to sign. He reports the patient had 2 granddaughters present during his visit as well. Provided correct fax # to send these to our office for signature. * Telephone Encounter - Roger Alexandra MD - 09/24/2023 9:16 AM EST Can we find out what is going on? * Telephone Encounter - Temi West LPN - 09/24/2023 9:04 AM EST HH PT/OT/ST Eval Start of Care/Continuation Damon PT, Calling from: [facility] PT Plan of care: 1 times per week for 1 weeks: Then 2 times a week for 1 week and then once a week for 3 weeks. Focusing on: endurance training and strengthening Concerns: As below. Narrative: Is also asking if PCP is agreeable with ST referral due to pt coughing when eating textured foods and hx of respiratory issues? Call back Damon with any advice or orders at [phone]. Please fax new orders to [phone] Please advise. * Telephone Encounter - Jada Guan OSA - 09/23/2023 3:49 PM EST Damon from [facility] requesting verbal order for inpatient physical therapy two times a weekfor one week and then one time a week for 3 weeks [phone] documented in this encounter Plan of Treatment Upcoming Encounters Date Type Department Care Team (Late st Contact Info) Description 09/27/2023 9:20 AM EST Laboratory Lab [place] [facility] [place] [address] [place] [address] [facility] Mobile Home Draw [address] [place] [address] 09/29/2023 9:30 AM EST Telemedicine is[place] at [place], [address] [place] [address] Sharmaine Johns PA-C [address] [place] [address] Kim Carrizales, Community Health Human Services Program Specialist [address] [place] [address] 11/29/2023 3:30 PM EST Telemedicine Psychiatry, [facility] [address] [place] [address] Hugo Alcantara MD [address], [place] [address] 01/07/2024 1:30 PM EST Office Visit Cardiology, [facility] [address] [place], [place] [phone] Saray Muhammad CRNP [address] [place] [address] Scheduled Procedures Name Priority Associated Diagnoses Date/Ti [...] 02/16/2022 LUNG CANCER SCREENING - USE SMARTSET 36584 Completed 2023, 03/16/2022, 08/24/2018, Additional history exists [...] p Communication Laura Gant Adult [facility]child Health Firewall Security Engineer resentative (appointed verbally by patient or by statute hierarchy) Darlene Gilbert Adult [facility] Health Firewall Security Engineer resentative (appointed verbally by patient or by statute hierarchy) Care Teams Landscape Contractor Relationship Specialty Start Date End Date Roger Alexandra MD [address] [address] PCP - General Family Medicine 12/29/19 documented as of this encounter
--- OUTSIDE RECORDS SUMMARY | 2023-11-16 19:22 | External Medical Summary | Summary of Care ---
Author Name Unknown Organization [facility] Address [address] [place] [address] Phone [phone] Care Team Providers Care Machine Lay Out Worker Name Role Phone Roger Alexandra MD Primary Care Provider [phone] Reason for Visit * Reason Onset Date Comments Follow Up 09/24/2023 Encounter Details Date Type Department Care Team (Late st Contact Info) Description 09/24/2023 Telephone Care Coordination [address], [place] [id number] Vanessa Nam [facility] Concrete Mixer Truck Driver [address], [place] [id number] Follow Up Allergies Active Allergy Reactions Criticality [...] BEDTIME 60 Capsule 5 04/05/2023 Active Nystatin 985488 UNIT/GM External Powder (Nyamyc) apply to affected [...] 11 07/07/2023 Active Vitamin D3 1.25 MG (62173 UT) Oral Capsule Take 1 Capsule by [...] MCG/ACT Inhalation Aerosol Powder Breath Activated (umeclidinium [place]) Inhale 1 Puff by mouth in the [...] defect 02/04/2006 009 Atrial septal aneurysm 02/04/200612/21 [facility] current use of ant icoagulant therapy 06/01/2005 [...] Miscellaneous Notes * Telephone Encounter - Vanessa Nam, [facility] Concrete Mixer Truck Driver - 09/24/2023 12:50 PM EST [facility] week 2 Tier 2 RAYSHAWN call Can ask if Home health has been in to start care. Yes Also how are her oxygen saturations? 87 to 90 Did she get to speak with her waiver provider for her granddaughters hours/pay? (she stated there was an issue and Laura/granddaughter was not getting paid) Doesn't know who Waiver provider is or how to contact. 1 Are you taking your medications as prescribed? Ye 2 Are your medications causing you any problems? No 3 Are you dizzy or unsteady when you walk? Yes 4 Have you fallen since we last contacted you? No 5 Are you experiencing any new pain or uncontrolled pain since we last contacted you? No 6 Have you felt feverish since we last contacted you? No 7 Have you been short of breath since we last contacted you? N o 8 Have you had any swelling since we last contacted you? No 9 Do you feel nauseous? No 10 Have you moved your bowels since we last contacted you? Ye Have you been experiencing diarrhea? Some 11 Do you have any incisions or open wounds? No 12 Do you have adequate help caring for yourself now that you are home? No Granddaughter limited pt. Feels she needs 8 hours or more. 14 Are there any other changes in your condition that you would like to talk to your nurse about? No documented in this encounter Plan of Treatment Upcoming Encounters Date Type Department Care Team (Late st Contact Info) Description 09/27/2023 9:20 AM EST Laboratory Lab [place] [facility] [address] [place] [address] [facility] [place] Mobile Home Draw [address] [place] [address] 09/29/2023 9:30 AM EST [facility] [address] [place] [address] Sharmaine Johns PA-C [address] [place] [address] Kim Carrizales [facility] Concrete Mixer Truck Driver [address] [place] [address] 11/29/2023 3:30 PM EST Telemedicine Psychiatry, [facility] [address] [place] [address] Hugo Alcantara MD [address] [facility] [place] [address] 01/07/2024 1:30 PM EST Office Visit Cardiology, [facility] [address] [place] [address] Saray Muhammad CRNP [address] [place] [address] Scheduled Procedures Name Priority Associated Diagnoses Date/Ti [...] 02/16/2022 LUNG CANCER SCREENING - USE SMARTSET [id number] Completed 2023, 03/16/2022, 08/24/2018, Additional history exists [...] patient or by statute hierarchy) Care Teams Machine Lay Out Worker Relationship Specialty Start Date End Date Roger Alexandra MD [address] [place] [address] PCP - General Family Medicine 12/29/19 documented as of this encounter
--- OUTSIDE RECORDS SUMMARY | 2023-11-16 19:22 | External Medical Summary | Summary of Care ---
Author Name Unknown Organization [facility] Address [address] [facility] [place] [address] Phone [phone] Care Team Providers Care Side Gluer Name Role Phone Roger Alexandra MD Primary Care Provider [phone] Reason for Visit * Reason Onset Date Comments Home Health 09/20/2023 Encounter Details Date Type Department Care Team (Late st Contact Info) Description 09/20/2023 Telephone Family Practice [facility] [address] [place] [address] Roger Alexandra MD [address] [place] [address] Home Health Allergies Active Allergy Reactions Criticality Noted Date Comments Aspirin Unknown 12/12/2007 von Willebrand's disease Salicylates 03/01/2000 von Willebrand's disease documented as of this encounter (statuses as of 09/21/2023) Medications Medication Sig Dispensed Refills Start Date [...] BEDTIME 60 Capsule 5 04/05/2023 Active Nystatin 515824 UNIT/GM External Powder (Nyamyc) apply to affected [...] 11 07/07/2023 Active Vitamin D3 1.25 MG (03986 UT) Oral Capsule Take 1 Capsule by [...] MCG/ACT Inhalation Aerosol Powder Breath Activated (umeclidinium [place]) Inhale 1 Puff by mouth in the [...] by mouth in the morning. 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 aware * Telephone Encounter - Roger Alexandra MD - 09/21/2023 2:10 PM EST I am willing to sign any orders needed. * Telephone Encounter - Blanche Alvarez LPN - 09/21/2023 10:38 AM EST Kimberly calling from [facility] She wanted to check on the status of the message below. She needs to know if Dr. Alexandra is willing to sign the orders if not that will change if they go outand see her tomorrow. Please call [facility] back at [phone] * Telephone Encounter - Alisha Michele LPN - 09/20/2023 10:33 AM EST HH Admission/Start of Care Admission/Start of Care: Gracie HAN, Calling from: [facility] Patient was Admitted to: [facility], 09/06 Referral ordered by: to Referral received for: Fpc, PT, and OT Planned start of care date:Yes, Date 09/18 Start of care completed on: yes 09/18 Next Nursing visit(s) on 09/22 They will call with any updates or additional concerns from the upcoming HH visit. Last Office Visit: 07/27/2023 Has patient been scheduled or seen in the office for a follow up visit: Needs contacted to schedulefollow up Advised that orders will be signed by Dr Alexandra and to fax to the office for signature. Call back [facility] HH intake with advice or orders at if orders are not being signed [phone] documented in this encounter Plan of Treatment Upcoming Encounters Date Type Department Care Team (Late st Contact Info) Description 09/22/2023 11:30 AM EST Home Visit Care Coordination [address] [place] [address] Kim Carrizales, [facility] Core Checker [address] [place] [address] 09/27/2023 9:20 AM EST Laboratory Lab Mobile Phlebotomy C [address] [place] [address] [facility] [place] Mobile Home Draw [address] [place] [address] 09/29/2023 9:30 AM EST Telemedicine [facility] [place] [address] [place] [address] Sharmaine Johns PA-C [address] [place] [address] Kim Carrizales, Community [facility] Core Checker [address] [place] [address] 11/29/2023 3:30 PM EST Telemedicine Psychiatry, [facility] [address] [place] [address] Hugo Alcantara MD [address] [place] [address] 01/07/2024 1:30 PM EST Office Visit Cardiology, [facility] [address] [place] [address] Saray Muhammad CRNP [address] [place] [facility] [place] [address] Scheduled Procedures Name Priority Associated Diagnoses Date/Ti [...] 02/16/2022 LUNG CANCER SCREENING - USE SMARTSET 22067 Completed 2023, 03/16/2022, 08/24/2018, Additional history exists [...] Healthcare Agent Relationshi p Communication Laura Gant [facility] Health Project Hire resentative (appointed verbally by patient or by statute hierarchy) Darleneasher Ruelaser [facility] Health Project Hire resentative (appointed verbally by patient or by statute hierarchy) Care Teams Side Gluer Relationship Specialty Start Date End Date Roger Alexandra MD [address] [place] [address] PCP - General Family Medicine 12/29/19 documented as of this encounter
--- OUTSIDE RECORDS SUMMARY | 2023-11-16 19:22 | External Medical Summary | Summary of Care ---
Author Name Unknown Organization [facility] Address [address] [facility] [place] [address] Phone [phone] Care Team Providers Care Director Talent Name Role Phone Roger Alexandra MD Primary Care Provider [phone] Reason for Visit * Reason Onset Date Comments Home Health 09/24/2023 Encounter Details Date Type Department Care Team (Late st Contact Info) Description 09/24/2023 Telephone Family Practice [facility] [address] [place] [address] Roger Alexandra MD [address] [place] [address] Home Health Allergies Active Allergy Reactions Criticality [...] BEDTIME 60 Capsule 5 04/05/2023 Active Nystatin 616299 UNIT/GM External Powder (Nyamyc) apply to affected [...] 11 07/07/2023 Active Vitamin D3 1.25 MG (78476 UT) Oral Capsule Take 1 Capsule by [...] MCG/ACT Inhalation Aerosol Powder Breath Activated (umeclidinium [place]) Inhale 1 Puff by mouth in the [...] ,08/03/2012,08/24/2011,08/06/2010,02/02/2010,09/20/2007,09/04/2003 Seasonal Influenza, Quadriva lent, No Preserve, IM [...] Encounter - Temi West LPN - 09/24/2023 9:03 AM EST See other encounter from yesterday. * Telephone Encounter - Sakina Adams OSA - 09/24/2023 8:58 AM EST Reason for patient's call: hh calling in asking to speak to nurse Caller was transferred to [facility] at the nurse line. documented in this encounter Plan of Treatment Upcoming Encounters Date Type Department Care Team (Late st Contact Info) Description 09/27/2023 9:20 AM EST Laboratory Lab [place] [facility] [address] [place] [address] [facility] [place] Mobile Home Draw [address] [place] [address] 09/29/2023 9:30 AM EST Telemedicine [facility] [address] [place] [address] Sharmaine Johns PA-C [address] [place] [address] Kim Carrizales, Community [facility] Api Developer [address] [place] [address] 11/29/2023 3:30 PM EST Telemedicine Psychiatry, [address] [address] Hugo Alcantara MD [address] [place] [address] 01/07/2024 1:30 PM EST Office Visit Cardiology, [facility] [place] [address] Saray Muhammad CRNP [address] [facility] [place] [address] Scheduled Procedures Name Priority Associated [...] 02/16/2022 LUNG CANCER SCREENING - USE SMARTSET 20937 Completed 2023, 03/16/2022, 08/24/2018, Additional history exists [...] Healthcare Agent Relationshi p Communication Laura Gant [facility] Rep resentative (appointed verbally by patient or by statute hierarchy) Darlene Gilbert [facility] Health Sort Manager resentative (appointed verbally by patient or by statute hierarchy) Care Teams Director Talent Relationship Specialty Start Date End Date Roger Alexandra MD [address] [place] [address] PCP - General Family Medicine 12/29/19 documented as of this encounter
--- OUTSIDE RECORDS SUMMARY | 2023-11-16 19:23 | External Medical Summary | Summary of Care ---
Author Name Unknown Organization [facility] Address [address] [place] [address] Phone [phone] Care Team Providers Care Flame Cutting Machine Operator Name Role Phone Roger Alexandra MD Primary Care Provider [phone] Reason for Referral * Ancillary Services (Within 3 days (urgent)) - Authorized Specialty Diagnoses / Procedures Referred By Contac t Referred To Contact Telegrapher Agent Diagnoses Chronic diastolic CHF (congestive heart failure) (HCC) Decreased functional mobility Acute blood loss anemia Hypokalemia Hypotension, unspecified hypotension type Sharmaine Johns PA-C [address] [place] [address] Referral ID Status Reason Start Date Expiration Date Visits Requested Visits Authorized [id number] Authorized Ancillary Services Required 09/15/2023 999 [id number] Question Answer Referral Priority Within 3 days (urgent) Where should this appointment be scheduled? Smooth Comments Is Patient homebound? Yes All sections [...] on the next service day for the [facility] Home Phlebotomy does not service every geographical location on a daily basis. Contact [facility] Client Services at to find out service days for a specific location. Medical Laboratory [address] [place] [address] Dawson Sanchez M.D. Director and Field Hockey And Lacrosse Coach Patient Name: Kimberly Kendall : 1960 Sex: female Address [address] [place] [id number] Provider: Self? Roger Alexandra MD? Diagnosis: Tests Requested CBC, CMP * Evaluate & Treat - Unlimited Visits (Within 3 days (urgent)) - Authorized Specialty Diagnoses / Procedures Referred By Anna hendrix Referred To Contact HOME CARE / Home Care Diagnoses Chronic diastolic CHF (congestive heart failure) (HCC) Decreased functional mobility Acute blood loss anemia Hypokalemia Hypotension, unspecified hypotension type Sharmaine Johns PA-C [address] [place] [address] Referral ID Status Reason Start Date Expiration Date Visits Requested Visits Authorized [id number] Authorized Specialty Services Required 09/15/[phone] Question Answer Referral Priority Within 3 days (urgent) Where should this appointment be scheduled? External Comments Documentation of Hepa-gq-Npvr Encounter Addendum Patient Name: Kimberly Kendall I certify that this patient is under my care and that I, or a nurse practitioner or physician's medical billing assistant working with me, had a ysaw-ps-qlen encounter that meets the physician ajfn-sj-ohbi encounter requirements with this patient on: 09/15/23 The encounter with the patient was in whole, or in part, for the following medical condition, which is the primary reason for home health care (List medical condition): Convalescence from acute illness I certify that, based on my findings, the following services are medically necessary home health services: Nursing and Physical Therapy To provide the following care/treatments: (All hospitalists not following the patient after discharge should complete this section): patient recently admitted for GI bleed and CVA. Having difficulty ambulating at home. Having orthostatic changes and noted to be hypotensive today. Primary Care Physician to follow home care plan of care after discharge: Dr. Alexandra and myself My clinical findings support the need for the above services because: patient recently admitted for GI bleed and CVA. Having difficulty ambulating at home. Having orthostatic changes and noted to be hypotensive today. She has a history of HF and is managed on Lasix Further, I certify that my clinical findings support that this patient is homebound (i.e. Absences from home require considerable and taxing effort and are for medical reasons or yazidism services or infrequently or of short duration when for other reason) because: See above Physician Signature: Sharmaine Cardenas PA-C Date of Signature: 09/15/23 Physician Printed Name: Sharmaine Roberts PA-C Reason for Visit * Reason Comments [facility]: Maintenance Encounter Details Date Type Department Care Team (Late st Contact Info) Description 09/15/2023 8:30 AM EDT Telemedicine [facility], [place] [address] [place] [address] Sharmaine Johns PA-C [address] [place] [address] Kim Carrizales, Community [facility] Lithographic Stripper [address] [place] [address] Chronic diastolic CHF (congestive heart failure) (HCC)*; Decreased functional mobility; Acute blood loss anemia; Hypokalemia; Hypotension, unspecified hypotension type Allergies Active Allergy Reactions Criticality Noted Date Comments Aspirin Unknown 12/12/2007 von Willebrand's disease Salicylates 03/01/2000 von Willebrand's disease documented as of this encounter (statuses as of 09/15/2023) Medications Medication Sig Dispensed Refills Start Date End Date Status oxygen IN GASIndications: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 120 Tablet 2 3 Active Metoprolol Succinate ER 25 MG Oral Tablet Extended Release 24 Hour (Toprol XL) Take 1 Tablet by mouth in the morning. 30 Tablet 11 3 Active Vitamin D3 1.25 MG (79884 UT) Oral Capsule Take 1 Capsule by mouth once a week. 12 Capsule 0 3 10/11/20 Active Additional Information Patient not taking.Reported on [...] Muscle spasms. 90 Tablet 0 3 Active LORazepam 0.5 MG Oral Tablet (Ativan) Take 1 Tablet by mouth every 8 hours as needed for Anxiety. 90 Tablet 0 3 Active Solifenacin Succinate [...] MCG/ACT Inhalation Aerosol Powder Breath Activated (umeclidinium [place]) Inhale 1 Puff by mouth in the [...] by mouth in the morning. 0 Active Warfarin Sodium 5 MG Oral Tablet (Coumadin)Indicatio ns:Paroxysmal atrial fibrillation (HCC) Take 0.5-1 Tablets by mouth every evening. OR DIRECTED BY COUMADIN CLINIC 90 Tablet 3 3 09/15/20 23 Discontinued Hospital, Clinic, or Other Facility [...] as of this encounter (statuses as of 09/15/2023) Active Problems Problem Noted Date Diagnosed Date [...] as of this encounter (statuses as of 09/15/2023) Resolved Problems Problem Noted Date Diagnosed Date [...] defect 02/04/2006 009 Atrial septal aneurysm 02/04/200612/21 [facility] current use of ant icoagulant therapy 06/01/2005 [...] as of this encounter (statuses as of 09/15/2023) Immunizations Name Administration Dates Next Due H1N1 [...] 04/23/2021 Hunger Vital Sign Answer Date Recorded Worried About Running Out of Food in the Last Ye ar Never true 12/29/2019 Ran Out of Food in the Last Year Never true 12/29/2019 Sex and Gender Information Value Date Recorded Sex Assigned at Not on file Gender Identity Not on file Sexual Orientation Not on file Job Start Date Occupation Industry Not on file Not on file Not on file documented as of this encounter Last Filed Vital Signs Vital Sign Reading Time Taken Comments Blood Pressure 80/60 09/15/2023 8:23 AM EDT Pulse 108 09/15/2023 8:23 AM EDT Temperature 36.7 C (98 F) 09/15/2023 8:23 AM EDT Respiratory Rate - - Oxygen Saturation 90% 09/15/2023 8:23 AM EDT Inhaled Oxygen Concentration - - Weight - - Height - - Body Mass Index - - documented in this encounter Progress Notes * Sharmaine Johns PA-C - 09/15/2023 8:41 AM EDT [facility] Provider Telemedicine Visit Date: 09/15/2023 Time: 8:41 AM Assessment/Plan: 1. Chronic diastolic CHF (congestive heart failure) (HCC) Advised to decrease Lasix to 20 mg BID (due to hypotension) and monitor edema - HOME HEALTH REFERRAL OP - HOME PHLEBOTOMY REFERRAL OP - CBC WITH WBC DIFFERENTIAL AND ANEMIA REFLEX WORKUP; Future - COMPREHENSIVE METABOLIC PANEL; Future 2. Decreased functional mobility - HOME HEALTH REFERRAL OP - HOME PHLEBOTOMY REFERRAL OP - CBC WITH WBC DIFFERENTIAL AND ANEMIA REFLEX WORKUP; Future - COMPREHENSIVE METABOLIC PANEL; Future 3. Acute blood loss anemia - HOME HEALTH REFERRAL OP - HOME PHLEBOTOMY REFERRAL OP - CBC WITH WBC DIFFERENTIAL AND ANEMIA REFLEX WORKUP; Future - COMPREHENSIVE METABOLIC PANEL; Future 4. Hypokalemia - HOME HEALTH REFERRAL OP - HOME PHLEBOTOMY REFERRAL OP - CBC WITH WBC DIFFERENTIAL AND ANEMIA REFLEX WORKUP; Future - COMPREHENSIVE METABOLIC PANEL; Future 5. Hypotension, unspecified hypotension type Decrease lasix to 20 mg BID - HOME HEALTH REFERRAL OP - HOME PHLEBOTOMY REFERRAL OP - CBC WITH WBC DIFFERENTIAL AND ANEMIA REFLEX WORKUP; Future - COMPREHENSIVE METABOLIC PANEL; Future Follow up plan: Will follow up in 2 weeks. EMERSON to go out next week for vital sign check and assess for edema. CM will set up services. Patient's BP today initially was 80/60. She is having orthostatic changes. Repeat BP on right arm was 100/60. Unable to do a med rec as her granddaughter does her medications but I updated medications from the discharge summary. She was able to tell me she is taking 40 mg Lasix of BID. Advised to skip tonight's dose of Lasix and start on 20 mg BID. Advised toreach out if she develops edema. A total of 30 minutes was spent face to face via video-based telemedicine. Subjective Patient location: HOME. I was not in a hospital or clinic location. After connecting through [email or web address], patient was verified with two unique identifiers. Patient (or authorized legal healthcare sales representative) was then informed that this was a Telemedicine visit and being conducted confidentially over secure lines. Methods to assure confidentiality were taken. Patient acknowledged consent and understanding of privacy and security of the Telemedicine visit. The patient agreed to participate. Reason for Visit: Transition from Acute Care (ED/Hospital) Current Concerns: Kimberly Kendall is a 63 year old female seen today for a [facility] Telemedicine Provider Visit. Date of last known acute care visit: Unclear when last visit was Reason for last known acute care visit: Patient was admitted to [facility] on 08/12/23- 08/25/23 with INR >9 and hemoglobin of 3.9. Anemia was contributed to an upper GI bleed. EGD was performed and WNL. While hospitalized she suffered an acute CVA to the right parieto-occipital region and was started on Eliquis 5 mg BID. She was discharged to a SNF. Today's concerns are: Patient states she arrived home last week. She is ambulating short distances around the house with a walker. She admits to feeling dizziness when moving from laying to sitting and sitting to standing. Once she starts walking she feels steady on her feet. She states she is mostly bed bound throughout the day. Her granddaughter Laura helps get her groceries and takes care of organizing her medications. She feels her breathing has been good. She is maintaining on 5 liters of oxygen. She is only doing nebulizer treatments once daily. No SOB or GUTHRIE. She does not feel like she is holding onto fluid. She had edema to the hands which has subsided. She states usually she gets it in the feet/ankles first. No trouble speaking or swallowing. No extremity weakness or numbness/tingling. She has some peripheral vision loss in the left eye from recent stroke. Appetite is good. No changes in bowels. No dark/tarry stools or blood. ROS: See HPI Objective Physical Exam: BP 80/60 (BP Site: Left Arm, BP Position: Sitting, BP Cuff Size: Large) | Pulse 108 | Temp 36.7 C(98 F) (Infrared ) | SpO2 90% Repeat BP: 100/60 Previous Wts: Wt Readings from Last 5 Encounters: 07/27/23 (!) 144.2 kg (318 lb) 04/15/23 (!) 142.7 kg (314 lb 8 oz) 03/15/23 (!) 137.2 kg (302 lb 8 oz) 03/11/23 (!) 138.8 kg (306 lb) 03/09/23 (!) 139.6 kg (307 lb 12.2 oz) Previous BPs: BP Readings from Last 5 Encounters: 09/15/23 80/60 08/04/23 100/62 07/27/23 122/68 07/07/23 108/72 07/02/23 142/82 Physical Exam Constitutional: General: She is not in acute distress. HENT: Head: Normocephalic and atraumatic. Nose: Nose normal. Eyes: Extraocular Movements: Extraocular movements intact. Conjunctiva/sclera: Conjunctivae normal. Cardiovascular: Rate and Rhythm: Normal rate and regular rhythm. Pulmonary: Effort: Pulmonary effort is normal. No respiratory distress. Comments: Diffuse wheezing noted in all lung mena Abdominal: General: Bowel sounds are normal. Musculoskeletal: Comments: Minimal LE edema noted Neurological: General: No focal deficit present. Mental Status: She is alert and oriented to person, place, and time. Diagnostic Data Review: Hematology Lab Results Component Value Date/Time WBC AUTO - [facility] 7.35 09/05/2023 05:15 AM WBC AUTO - [facility] 7.87 09/02/2023 06:15 AM WBC AUTO - [facility] 10.44 08/28/2023 06:20 AM WBC AUTO - [facility] 7.25 10/17/2020 03:40 PM WBC AUTO - [facility] 8.07 12/29/2019 10:22 AM WBC AUTO - [facility] 9.78 03/17/2016 03:23 PM Lab Results Component Value Date/Time HGB - [facility] 10.1 (L) 09/05/2023 05:15 AM HGB - [facility] 8.7 (L) 09/02/2023 06:15 AM HGB - [facility] 8.2 (L) 08/28/2023 06:20 AM HGB - [facility] 12.2 10/17/2020 03:40 PM HGB - [facility] 14.1 12/29/2019 10:22 AM HGB - [facility] 14.0 03/17/2016 03:23 PM Lab Results Component Value Date/Time HCT - [facility] 34.0 (L) 09/05/2023 05:15 AM HCT - [facility] 31.0 (L) 09/02/2023 06:15 AM HCT - [facility] 28.4 (L) 08/28/2023 06:20 AM HCT - [facility] 39.5 10/17/2020 03:40 PM HCT - [facility] 44.1 12/29/2019 10:22 AM HCT - [facility] 43.3 03/17/2016 03:23 PM Lab Results Component Value Date/Time PLATELET AUTO - [facility] 590 (H) 09/05/2023 05:15 AM PLATELET AUTO - [facility] 503 (H) 09/02/2023 06:15 AM PLATELET AUTO - [facility] 433 (H) 08/28/2023 06:20 AM PLATELET AUTO - [facility] 385 10/17/2020 03:40 PM PLATELET AUTO - [facility] 399 12/29/2019 10:22 AM PLATELET AUTO - [facility] 379 03/17/2016 03:23 PM Lab Results Component Value Date/Time IRON - [facility] 17 (L) 07/12/2023 07:01 AM IRON - [facility] 37 05/08/2015 03:40 PM Lab Results Component Value Date/Time TRANSFERRIN SATURATION PERCENT - [facility] 4 (L) 07/12/2023 07:01 AM No results found for: "TRANSFERRIN - [facility]" Lab Results Component Value Date/Time VITAMIN B12 - [facility] 302 07/12/2023 07:01 AM VITAMIN B12 - [facility] 397 08/21/2015 11:59 AM Chemistry/Renal Lab Results Component Value Date/Time SODIUM - [facility] 138 09/05/2023 05:15 AM SODIUM - [facility] 141 09/02/2023 06:15 AM SODIUM - [facility] 142 10/17/2020 03:40 PM SODIUM - [facility] 143 12/29/2019 10:22 AM Lab Results Component Value Date/Time POTASSIUM - [facility] 2.9 (L) 09/05/2023 05:15 AM POTASSIUM - [facility] 4.2 09/02/2023 06:15 AM POTASSIUM - [facility] 4.6 10/17/2020 03:40 PM POTASSIUM - [facility] 4.0 12/29/2019 10:22 AM Lab Results Component Value Date/Time PHOSPHORUS - [facility] 2.9 03/24/2005 10:42 AM Lab Results Component Value Date/Time MAGNESIUM - [facility] 2.2 05/25/2016 10:30 AM MAGNESIUM - [facility] 2.2 03/24/2005 10:42 AM Lab Results Component Value Date/Time BUN - [facility] 17 09/05/2023 05:15 AM BUN - [facility] 16 09/02/2023 06:15 AM BUN - [facility] 16 08/28/2023 06:20 AM BUN - [facility] 10 10/17/2020 03:40 PM BUN - [facility] 14 12/29/2019 10:22 AM BUN - [facility] 15 05/25/2016 10:30 AM Lab Results Component Value Date/Time CREATININE - [facility] 1.0 09/05/2023 05:15 AM CREATININE - [facility] 1.0 09/02/2023 06:15 AM CREATININE - [facility] 1.0 08/28/2023 06:20 AM CREATININE - [facility] 0.7 10/17/2020 03:40 PM CREATININE - [facility] 0.7 12/29/2019 10:22 AM CREATININE - [facility] 0.6 05/25/2016 10:30 AM Lab Results Component Value Date/Time ESTIMATED GLOMERULAR FILTRATION RATE - [facility] 60 09/05/2023 05:15 AM ESTIMATED GLOMERULAR FILTRATION RATE - [facility] 63 09/02/2023 06:15 AM ESTIMATED GLOMERULAR FILTRATION RATE - [facility] 66 08/28/2023 06:20 AM ESTIMATED GLOMERULAR FILTRATION RATE - [facility] [...] Results Component Value Date/Time AST - [facility] 21 07/12/2023 07:01 AM AST - [facility] 13 12/29/2019 10:22 AM AST - [facility] 16 03/17/2016 03:23 PM Lab Results Component Value Date/Time ALT - [facility] 11 07/12/2023 07:01 AM ALT - [facility] 6 (L) 12/29/2019 10:22 AM ALT - [facility] 9 (L) 03/17/2016 03:23 PM Lab Results Component Value Date/Time ALKALINE PHOSPHATASE - [facility] 103 07/12/2023 07:01 AM ALKALINE PHOSPHATASE - [facility] 75 12/29/2019 10:22 AM ALKALINE PHOSPHATASE - [facility] 104 03/17/2016 03:23 PM Lab Results Component Value Date/Time BILIRUBIN, DIRECT - [facility] 0.1 11/19/2000 12:26 PM BILIRUBIN, TOTAL - [facility] <0.2 07/12/2023 07:01 [...] Results Component Value Date/Time TSH - [facility] 2.32 07/12/2023 07:01 AM TSH - [facility] 2.14 12/08/2022 01:59 PM [...] capsule BEFORE BEDTIME 60 Capsule 5 Nystatin 522907 UNIT/GM External Powder (Nyamyc) apply to affected area twice a day 60 g 1 Warfarin Sodium 5 MG Oral Tablet (Coumadin) Take 0.5-1 Tablets by mouth every evening. OR DIRECTED BY COUMADIN CLINIC 90 Tablet 3 Ramelteon 8 MG Oral Tablet (Rozerem) Take 1 Tablet by mouth at bedtime. 30 Tablet 1 Furosemide 40 MG Oral Tablet (Lasix) Take 1 Tablet by mouth in the morning and 1 Tablet before bedtime. 180 Tablet 3 Isosorbide Mononitrate ER 30 MG Oral Tablet Extended Release 24 Hour (Imdur) take 1 tablet by mouthonce daily 30 Tablet 5 busPIRone HCl 10 MG Oral Tablet (Buspar) Take 2 Tablets by mouth in the morning and 2 Tablets before bedtime. 120 Tablet 2 Metoprolol Succinate ER 25 MG Oral Tablet Extended Release 24 Hour (Toprol XL) Take 1 Tablet by mouth in the morning. 30 Tablet 11 Vitamin D3 1.25 MG (69635 UT) Oral Capsule Take 1 Capsule by mouth once a week. 12 Capsule 0 ProAir HFA 108 (90 Base) MCG/ACT Inhalation Aerosol Solution Inhale 2 Puffs by mouth in the morningand 2 Puffs at noon and 2 Puffs in the evening and 2 Puffs before bedtime. 18 g 5 Baclofen 10 MG Oral Tablet (Lioresal) Take 1 Tablet by mouth 3 times a day as needed for Muscle spasms. 90 Tablet 0 LORazepam 0.5 MG Oral Tablet (Ativan) Take 1 Tablet by mouth every 8 hours as needed for Anxiety. 90 Tablet 0 Solifenacin Succinate 10 MG [...] inhalation solution 2.5 mg 2.5 mg Nebulizer PRJuan Puente MD Mobility Evaluation: MACH10 Assessment: [facility]-10 ([facility]) Fall Risk Assessment Tool Age 65+: No (09/15/23799) Diagnosis (3 or more co-existing): Yes (09/15/23799) Prior history of falls within 3 months: No (09/15/23799) Incontinence: Yes (09/15/23799) Visual impairment: Yes (09/15/23799) Impaired functional mobility: Yes (09/15/23799) Environmental hazards: Yes (09/15/23799) Poly Pharmacy (4 or more prescriptions - any type): Yes (09/15/23799) Pain affecting level of function: Yes (09/15/23799) Cognitive impairment: No (09/15/23799) Score - a score of 4 or more is considered at risk for fallin (09/15/23799) Assistive Devices Used in the Home: Walker (standard or rollator) Recent Falls: Falls in the last 6 months: No SDoH: DME (Durable Medical Equipment) needs Funeral Car Chauffeur Services / Assistance with ADLs and Self-Care Routine Transportation Urgent Transportation Social Isolation Behavioral Health needs Sharmaine Roberts PA-C 8:41 AM *Communication sent to PCP (via autofax if non-[facility]), Population Health Care Team members, relevant Specialty Care Physicians* * Kim Carrizales [facility]ographic Stripper - 09/15/2023 8:20 AM EDT [facility]pper Telephone Visit Date: 09/15/2023 Time: 8:20 AM Name: Kimberly Kendall : 1960 Source of Information: Patient COVID-19 screening completed: Yes Vitals: Vital signs completed: Yes, vital signs within normal range. BP 80/60 (BP Site: Left Arm, BP Position: Sitting, BP Cuff Size: Large) | Pulse 108 | Temp 36.7 C(98 F) (Infrared ) | SpO2 90% Condition Changes: Changes in health or social status since last visit: patient reports no changes at this yet The patient has new concerns since last visit: No Progress towards goals since last visit: See above Medications: Medication review completed? No, was attempted however EMERSON and patient unable to find bottles of medications. Daughter takes care of her medications and fills her med minder and she does not know where daughter puts the bottles. Does the patient have barriers to medication adherence? No. Symptoms Surveys and Evaluations: Last flowsheet values for [facility]: Age 65+: 0 (09/15/2023 8:00 AM) Diagnosis (3 or more co-existing): 1 (09/15/2023 8:00 AM) Prior history of falls within 3 months: 0 (09/15/2023 8:00 AM) Incontinence: 1 (09/15/2023 8:00 AM) Visual impairment: 1 (09/15/2023 8:00 AM) Impaired functional mobility: 1 (09/15/2023 8:00 AM) Environmental hazards: 1 (09/15/2023 8:00 AM) Poly Pharmacy (4 or more prescriptions - any type): 1 (09/15/2023 8:00 AM) Pain affecting level of function: 1 (09/15/2023 8:00 AM) Cognitive impairment: 0 (09/15/2023 8:00 AM) Score - a score of 4 or more is considered at risk for fallin (09/15/2023 8:00 AM) COPD Checklist COPD EMERSON ([facility]pper) Checklist The patient uses oxygen: Yes Tanks are stored: Not applicable Compressor located away from anything flammable: yes Oxygen tubing: - Clean and in good repair: Yes - Reached out to Durable Medical Equipment supplier for replacement tubing: No, - Referred to Sr. Media Manager for additional in-home respiratory assessment: No, - Other: Describe how the patient manages going out with oxygen: manages okay but needs a lot of assistance - Referred to Sr. Media Manager for portable oxygen order: No - Coordinated portable oxygen tanks with Durable Medical Equipment supplier: No The patient uses a nebulizer: Yes Describe how the patient uses their nebulizer: Demonstrated using the nebulizer and appeared to understand. Describe how the patient cleans the nebulizer (including the filter): Patient demonstrated cleaningand appeared to understand. The patient uses an inhaler: Yes Describe how the patient uses the inhaler: Patient demonstrated using the inhaler and appeared to understand. Describe how the patient cleans the inhaler: Patient demonstrated cleaning and appeared to understand. Frequency of inhaler use: as prescribed, morning and night COPD Assessment Test (CAT) completed this visit: No Last flowsheet values for COPD Assessment Test [...] activities at home?: 5 (03/15/2023 9:00 AM) [id number])@How soundly do you sleep?: 5 (03/15/2023 9:00 AM) How much energy do you have?: 5 (03/15/2023 9:00 AM) CAT Total Score: 35 (03/15/2023 9:00 AM) Plan: Reinforced care plan established by care team Reinforced patient's three red flags by the care team 1. Dyspnea/wheezing 2. weight gain/worsening edema 3. fever/chills Follow Up: Patient encouraged to call the intake phone number for all urgent but not emergent issues. Scheduled to follow up with patient in a week, EMERSON will re-check vitals and swelling in legs and feet. As per scheduled. Kim Carrizales [facility]ographic Stripper 09/15/2023 8:20 AM documented in this encounter Plan of Treatment Upcoming Encounters Date Type Department Care Team (Late st Contact Info) Description 09/17/2023 11:00 AM EDT Office Visit Family Practice [facility] [address] [place] [id number] Roger Alexandra MD [address] [place] [id number] 09/20/2023 3:30 PM EST Telemedicine Psychiatry, [facility] [address] [place] [address] Hugo Alcantara MD [address], [place] [id number] 09/22/2023 11:30 AM EST Home Visit Care Coordination [address] [place] [address] Kim Carrizales, [facility] [employer]ographic Stripper [address] [place] [address] 09/29/2023 9:30 AM EST Telemedicine [facility], [place] [address] [place] [address] Sharmaine Johns PA-C [address] [place] [address] Kim Carrizales, [facility]ographic Stripper [address] [place] [address] 01/07/2024 1:30 PM EST Office Visit Cardiology, [facility] [address] [address] Saray Muhammad CRNP [address] [place] [id number] Scheduled Orders Name Type Priority Associated Diagnoses Orde r Schedule CBC WITH WBC DIFFERENTIAL AND ANEMIA REFLEX WORKUP Lab Routine Chronic diastolic CHF (congestive heart failure) (HCC) Decreased functional mobility Acute blood loss anemia Hypokalemia Hypotension, unspecified hypotension type Expected: 09/15/2023 (Approximate), Expires: 09/15/2024 COMPREHENSIVE METABOLIC PANEL Lab Routine Chronic diastolic CHF (congestive heart failure) (HCC) Decreased functional mobility Acute blood loss anemia Hypokalemia Hypotension, unspecified hypotension type Expected: 09/15/2023 (Approximate), Expires: 09/14/2024 Scheduled Procedures Name Priority Associated Diagnoses Date/Ti me COLONOSCOPY FLEXIBLE PROXIMA L DIAGNOSTIC Recall History of colonic polyps Scheduled Referrals Name Type Priority Associated Diagnoses Orde r Schedule HOME HEALTH REFERRAL OP Referral Within 3 days (urgent) Chronic diastolic CHF (congestive heart failure) (HCC) Decreased functional mobility Acute blood loss anemia Hypokalemia Hypotension, unspecified hypotension type Ordered: 09/15/2023 HOME PHLEBOTOMY REFERRAL OP Referral Within 3 days (urgent) Chronic diastolic CHF (congestive heart failure) (HCC) Decreased functional mobility Acute blood loss anemia Hypokalemia Hypotension, unspecified hypotension type Ordered: 09/15/2023 Health Maintenance Due Date Last Done Comments [...] 02/16/2022 LUNG CANCER SCREENING - USE SMARTSET [id number] Completed 2023, 03/16/2022, 08/24/2018, Additional history exists [...] failure) (HCC)- Primary Chronic diastolic heart failure Decreased functional mobility Other symptoms involving nervous and musculoskeletal systems Acute blood loss anemia Acute posthemorrhagic anemia Hypokalemia Hypopotassemia Hypotension, unspecified hypotension type documented in this encounter Advance Directives Healthcare Agents on File Name Relationship Healthcare Agent Relationshi p Communication Larua Gant [facility] Rail Grinder resentative (appointed verbally by patient or by statute hierarchy) Darlene Gilbert [facility] Rail Grinder resentative (appointed verbally by patient or by statute hierarchy) Care Teams Flame Cutting Machine Operator Relationship Specialty Start Date End Date Roger Alexandra MD [address] [address] PCP - General Family Medicine 12/29/19 documented as of this encounter
--- OUTSIDE RECORDS SUMMARY | 2023-11-16 19:23 | External Medical Summary | Summary of Care ---
Author Name Unknown Organization [facility] Address [address] [place] [address] Phone [phone] Care Team Providers Care Heel Turner Name Role Phone Roger Alexandra MD Primary Care Provider [phone] Reason for Visit * Reason Onset Date Comments Appointment 09/17/2023 Encounter Details Date Type Department Care Team (Late st Contact Info) Description 09/17/2023 Telephone [facility] [place] [address], [place] [id number] Services, Scheduling [address] [place] [address] Appointment (//) Allergies Active Allergy Reactions Criticality Noted Date Comments Aspirin Unknown 12/12/2007 von Willebrand's disease Salicylates 03/01/2000 von Willebrand's disease documented as of this encounter (statuses as of 09/17/2023) Medications Medication Sig Dispensed Refills Start Date [...] BEDTIME 60 Capsule 5 04/05/2023 Active Nystatin 937997 UNIT/GM External Powder (Nyamyc) apply to affected [...] 11 07/07/2023 Active Vitamin D3 1.25 MG (54983 UT) Oral Capsule Take 1 Capsule by mouth once a week. 12 Capsule 0 07/13/2023 3 Active Additional Information Patient not taking.Reported [...] Muscle spasms. 90 Tablet 0 07/30/2023 Active LORazepam 0.5 MG Oral Tablet (Ativan) Take 1 Tablet by mouth every 8 hours as needed for Anxiety. 90 Tablet 0 08/05/2023 Active Solifenacin Succinate 10 MG Oral Tablet [...] MCG/ACT Inhalation Aerosol Powder Breath Activated (umeclidinium Page) Inhale 1 Puff by mouth in the [...] as of this encounter (statuses as of 09/17/2023) Active Problems Problem Noted Date Diagnosed Date [...] as of this encounter (statuses as of 09/17/2023) Resolved Problems Problem Noted Date Diagnosed Date [...] defect 02/04/2006 009 Atrial septal aneurysm 02/04/200612/21 USP current use of ant icoagulant therapy 06/01/2005 [...] as of this encounter (statuses as of 09/17/2023) Immunizations Name Administration Dates Next Due H1N1 [...] Telephone Encounter - Yara Morris RN - 09/17/2023 11:32 AM EDT Patient left VM on CM line asking that phone calls not go to her son, she asks to call her line at [phone]. Thank you * Telephone Encounter - Edis Bee OSA - 09/17/2023 9:41 AM EDT Per request, pt should try to make it to pcp appt today, call to pt and no answer and vm is full, lmom with son monik documented in this encounter Plan of Treatment Upcoming Encounters Date Type Department Care Team (Late st Contact Info) Description 09/20/2023 3:30 PM EST Telemedicine Psychiatry, [address] [address] [place] Alcantara MD [address] [place] [address] 09/22/2023 11:30 AM EST Home Visit Care Coordination [address] [place] [address] Kim Carrizales, Community Health Contact Agent [address] [place] [address] 09/27/2023 9:20 AM EST Laboratory Lab Mobile Phlebotomy [facility] [address] [place] [address] [facility] [place] [facility], [facility] Mobile Home Draw [address] [place] [address] 09/29/2023 9:30 AM EST Telemedicine [facility], [place] [address] [place] [address] Sharmaine Johns PA-C [address] [place] [address] iKm Carrizales, Community Health Contact Agent [address] [place] [address] 01/07/2024 1:30 PM EST Office Visit Cardiology, [facility] [address] [place] [address] Saray Muhammad CRNP [address] [place] [address] Scheduled Procedures Name Priority Associated Diagnoses Date/Ti [...] 02/16/2022 LUNG CANCER SCREENING - USE SMARTSET [id number] Completed 2023, 03/16/2022, 08/24/2018, Additional history exists [...] Agent Relationshi p Communication [facility] Residential Finish Carpenter resentative (appointed verbally by patient or by statute hierarchy) Darlene Gilbert Adult [facility] Health Residential Finish Carpenter resentative (appointed verbally by patient or by statute hierarchy) Care Teams Heel Turner Relationship Specialty Start Date End Date Roger Alexandra MD [address] [address] PCP - General Family Medicine 12/29/19 documented as of this encounter
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
--- OUTSIDE RECORDS SUMMARY | 2023-11-16 19:23 | External Medical Summary | Summary of Care ---
Author Name Unknown Organization [facility] Address [address] [place] [address] Phone [phone] Care Team Providers Care Leverman Name Role Phone Roger Alexandra MD Primary Care Provider [phone] Reason for Visit * Reason Onset Date Comments case management 09/15/2023 Encounter Details Date Type Department Care Team (Late st Contact Info) Description 09/15/2023 Premium Note Interest Calculator Clerk Telephone Family Practice [facility] [address] [place] [address] Yara Morris, RN [address] [place] [address] case management Allergies Active Allergy Reactions Criticality Noted Date Comments Aspirin Unknown 12/12/2007 von Willebrand's disease Salicylates 03/01/2000 von Willebrand's disease documented as of this encounter (statuses as of 09/15/2023) Medications Medication Sig Dispensed Refills Start Date End Date Status oxygen IN GASIndications:Java Analyst 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 respiratory failure (HCC),COPD, group D, [...] OPD, group D, by GOLD 2017 classification ([facility]),Chronic hypoxemic respiratory failure ([facility]) Use with nebulized meds 1 Each 0 2 Active Full Kit Nebulizer SetIndications:COPD , group D, by GOLD 2017 classification ([facility] [...] BEDTIME 60 Capsule 5 3 Active Nystatin 025130 UNIT/GM External Powder (Nyamyc) apply to affected [...] 11 3 Active Vitamin D3 1.25 MG (68499 UT) Oral Capsule Take 1 Capsule by [...] MCG/ACT Inhalation Aerosol Powder Breath Activated (umeclidinium [place]) Inhale 1 Puff by mouth in the [...] Telephone Encounter - Yara Morris RN - 09/15/2023 2:43 PM EDT CM progress note S: spoke with Jamilah Connors. Order placed for home health. Patient previously had critical access hospital and [facility] palliative prior to hospitalization. Spoke with [facility] who states they are unable to accept this referral, faxed referral to [facility]. Will await determination. O: phone call A: patient is alert and oriented. P: will continue to try to arrange home health services. documented in this encounter Plan of Treatment Upcoming Encounters Date Type Department Care Team (Late st Contact Info) Description 09/17/2023 11:00 AM EDT Office Visit Family Practice [facility] [address] [place] [address] Roger Alexandra MD [address] [facility] [place] [address] 09/20/2023 3:30 PM EST Telemedicine Psychiatry, [address] [address] [place] Alcantara MD [address] [place], [place] [address] 09/22/2023 11:30 AM EST Home Visit Care Coordination [address] [place] [address] Kim Carrizales, Community Health Drier Tender [address] [place] [address] 09/29/2023 9:30 AM EST Telemedicine [facility], [place] [address] [place] [address] Sharmaine Johns PA-C [address] [place] [address] Kim Carrizales, Community Health Drier Tender [address] [place] [address] 01/07/2024 1:30 PM EST Office Visit Cardiology, [facility] [address] [place] [address] Saray Muhammad CRNP [address] [place] [address] Scheduled Procedures Name Priority Associated Diagnoses Date/Ti [...] 02/16/2022 LUNG CANCER SCREENING - USE SMARTSET 79494 Completed 2023, 03/16/2022, 08/24/2018, Additional history exists [...] p Communication Laura Gant Adult [facility] Senior Director Marketing resentative (appointed verbally by patient or by statute hierarchy) Darlene Gilbert Adult [facility] Health Senior Director Marketing resentative (appointed verbally by patient or by statute hierarchy) Care Teams Leverman Relationship Specialty Start Date End Date Roger Alexandra MD [address] [address] PCP - General Family Medicine 12/29/19 documented as of this encounter
--- OUTSIDE RECORDS SUMMARY | 2023-11-16 19:23 | External Medical Summary | Summary of Care ---
Author Name Unknown Organization [facility] Address [address] [place] [address] Phone [phone] Care Team Providers Care Simplex Printer Installer Name Role Phone Roger Alexandra MD Primary Care Provider [phone] Reason for Visit * Reason Onset Date Comments Appointment 09/15/2023 Encounter Details Date Type Department Care Team (Late st Contact Info) Description 09/15/2023 Telephone [facility] [place] [address] [place], [place] [address] Services, Scheduling [address] [place] [address] Appointment (//) Allergies Active Allergy Reactions Criticality [...] BEDTIME 60 Capsule 5 04/05/2023 Active Nystatin 224666 UNIT/GM External Powder (Nyamyc) apply to affected area twice a day 60 g 1 05/10/2023 Active Warfarin Sodium 5 MG Oral Tablet [...] 11 07/07/2023 Active Vitamin D3 1.25 MG (97964 UT) Oral Capsule Take 1 Capsule by mouth once a week. 12 Capsule 0 07/13/2023 Active ProAir HFA 108 (90 Base) [...] Pain, Moderate. 120 Tablet 0 09/07/2023 Active Hospital, Clinic, or Other Facility Administered [...] Telephone Encounter - Edis Bee OSA - 09/15/2023 10:22 AM EDT Per request, scheduled zoe ret hv for vitals for 09/22 at 1130am and kaco return telemed for 09/29 at 930/10am, call to pt to confirm appts and no answer and vm is full, LMOM with son edruchi to have pt call back documented in this encounter Plan of Treatment Upcoming Encounters Date Type Department Care Team (Late st Contact Info) Description 09/17/2023 11:00 AM EDT Office Visit Family Practice [facility] [address] [place] [address] Roger Alexandra MD [address] [place] [address] 09/20/2023 3:30 PM EST [address]med[address], [address] [address] Hugo Alcantara MD [address] [facility] [place] [address] 09/22/2023 11:30 AM EST Home Visit Care Coordination [address] [place] [address] Kim Carrizales, Community Health Conveyor Feeder [address] [place] [address] 09/29/2023 9:30 AM EST Telemedicine [facility], [place] [address] [place] [address] Sharmaine Johns PA-C [address] [place] [address] Kim Carrizales, Community Health Conveyor Feeder [address] [place] [address] 01/07/2024 1:30 PM EST Office Visit Cardiology, [facility] [address] [place] [address] Saray Muhammad CRNP [address] [facility] [address] Scheduled Procedures Name Priority Associated Diagnoses Date/Ti [...] ASSESSMENT COMPLETED IN PAST YEAR FOR COPD 08/04/2024 08/04/2023 COLONOSCOPY-EVERY 5 YRS AGES 18-100 01/14/2028 01/13/2023, 11/12/2020, 05/22/2013, Additional history exists Lipid Panel 03/09/2028 03/09/2023, 08/15, 09/25/2015, Additional history exists Alpha-1 Antitrypsin Completed 02/16/2022 LUNG CANCER SCREENING - USE SMARTSET 16036 Completed 2023, 03/16/2022, 08/24/2018, Additional history exists [...] Healthcare Agent Relationshi p Communication Laura Gant [facility] Health Charge Master Coordinator resentative (appointed verbally by patient or by statute hierarchy) Darlene [facility] Health Charge Master Coordinator resentative (appointed verbally by patient or by statute hierarchy) Care Teams Simplex Printer Installer Relationship Specialty Start Date End Date Roger Alexandra MD [address] [address] PCP - General Family Medicine 12/29/19 documented as of this encounter
--- OUTSIDE RECORDS SUMMARY | 2023-11-16 19:23 | External Medical Summary | Summary of Care ---
Author Name Unknown Organization [facility] Address [address] [facility] [place] [address] Phone [phone] Care Team Providers Care Antitank Assault Gunner Name Role Phone Roger Alexandra MD Primary Care Provider [phone] Reason for Visit * Reason Onset Date Comments Advice 09/17/2023 Encounter Details Date Type Department Care Team (Late st Contact Info) Description 09/17/2023 Telephone Family Practice [facility] [address] [place] [address] Roger Alexandra MD [address] [place] [address] Advice Allergies Active Allergy Reactions Criticality Noted [...] BEDTIME 60 Capsule 5 04/05/2023 Active Nystatin 224110 UNIT/GM External Powder (Nyamyc) apply to affected [...] 11 07/07/2023 Active Vitamin D3 1.25 MG (96188 UT) Oral Capsule Take 1 Capsule by [...] MCG/ACT Inhalation Aerosol Powder Breath Activated (umeclidinium [place]) Inhale 1 Puff by mouth in the [...] defect 02/04/2006 009 Atrial septal aneurysm 02/04/200612/21 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 She had [employer] televisit earlier this week. She is not feeling well enough to come into the clinic today. * Telephone Encounter - Adriana Gómez OSA - 09/17/2023 9:10 AM EDT Pt states she has issues getting in and out of the car and can not get to her appt today. She wantsto try to have a home doctor vbisit with Dr Alexandra. Please call [phone] documented in this encounter Plan of Treatment Upcoming Encounters Date Type Department Care Team (Late st Contact Info) Description 09/17/2023 11:00 AM EDT Office Visit [facility] [address] [facility] [place] [address] Roger Alexandra MD [address] [place] [address] 09/20/2023 3:30 PM EST Telemedicine Psychiatry, [address] [address] Hugo Alcantara MD [address] [place] [address] 09/22/2023 11:30 AM EST Home Visit Care Coordination [address] [place] [address] Kim Carrizales, Community Health High School Chemistry Teacher [address] [place] [address] 09/27/2023 9:20 AM EST Laboratory Lab Mobile Phlebotomy C [address] [place] [address] [facility] [place] Mobile Home Draw [address] [place] [address] 09/29/2023 9:30 AM EST [facility]icine [facility], [place] [address] [place] [address] Sharmaine Johsn PA-C [address] [place] [address] Kim Carrizales, Community Health High School Chemistry Teacher [address] [facility] [address] 01/07/2024 1:30 PM EST Office Visit Cardiology, [facility] [address] [place] [address] Saray Muhammad CRNP [address] [place] [address] Scheduled Procedures Name Priority Associated Diagnoses Date/Ti [...] 02/16/2022 LUNG CANCER SCREENING - USE SMARTSET 90851 Completed 2023, 03/16/2022, 08/24/2018, Additional history exists [...] Healthcare Agent Relationshi p Communication Laura Gant [facility] Rep resentative (appointed verbally by patient or by statute hierarchy) Darlene Gilbert [facility] Rep resentative (appointed verbally by patient or by statute hierarchy) Care Teams Antitank Assault Gunner Relationship Specialty Start Date End Date Roger Alexandra MD 132 [facility] [place] [address] PCP - General Family Medicine 12/29/19 documented as of this encounter
--- OUTSIDE RECORDS SUMMARY | 2023-11-16 19:23 | External Medical Summary | Summary of Care ---
Author Name Unknown Organization [facility] Address [address] [place] [address] Phone [phone] Care Team Providers Care Event Planning Intern Name Role Phone Roger Alexandra MD Primary Care Provider [phone] Reason for Visit * Reason Onset Date Comments case management 09/17/2023 Encounter Details Date Type Department Care Team (Late st Contact Info) Description 09/17/2023 Club Concierge Telephone Family Practice [facility] [address] [place] [address] Yara Morris, RN [address] [place] [address] case management Allergies Active Allergy [...] BEDTIME 60 Capsule 5 04/05/2023 Active Nystatin 985991 UNIT/GM External Powder (Nyamyc) apply to affected [...] 11 07/07/2023 Active Vitamin D3 1.25 MG (03082 UT) Oral Capsule Take 1 Capsule by [...] MCG/ACT Inhalation Aerosol Powder Breath Activated (umeclidinium [place]) Inhale 1 Puff by mouth in [...] Encounter - Yara Morris RN - 09/17/2023 10:06 AM EDT CM Progress note S: Spoke with patient She is not up to coming in for OV today, she had completed [facility] telehealth visit on 09/15. She reports O2 sats running 86-90%. She reports this has been her baseline. She has hadan improvement with swelling since home from hospitalization. She is interested in a purewick device, felt this worked well while in the hospital. Currently denies any dysuria. Also reports that [employer] electronic scale tester "is not paying Malu" she is not sure why, she cannot remember her case workers name through the waiver program. O: phone call [facility] week 1 A: alert, oriented P: Reinforced care plan as previously established. [facility] left VM on CM line stating they have accepted her and will start care within 48 hours. documented in this encounter Plan of Treatment Upcoming Encounters Date Type Department Care Team (Late st Contact Info) Description 09/20/2023 3:30 PM EST Telemedicine Psychiatry, [address] [place] [address] Hugo Alcantara MD [address] [place] [address] 09/22/2023 11:30 AM EST Home Visit Care Coordination [address] [place] [address] Kim Carrizales, Community Health Motorcycle Delivery Driver [address] [place] [address] 09/27/2023 9:20 AM EST Laboratory Lab Mobile Phlebotomy [facility] [address] [place] [address] [facility] [place] Draw [address] [place] [address] 09/29/2023 9:30 AM EST Telemedicine [facility], [place] [address] [place] [address] Sharmaine Johns PA-C [address] [place], [place] [id number] Kim Carrizales, Community Health Motorcycle Delivery Driver [address] [place] [address] 01/07/2024 1:30 PM EST Office Visit Cardiology, [facility] [address] [place] [address] Saray Muhammad CRNP [address] [place] [address] Scheduled Procedures Name Priority Associated Diagnoses Date/Ti [...] 02/16/2022 LUNG CANCER SCREENING - USE SMARTSET 66602 Completed 2023, 03/16/2022, 08/24/2018, Additional history exists [...] patient or by statute hierarchy) Darlene Gilbert [facility] Health Clam Dredger resentative (appointed verbally by patient or by statute hierarchy) Care Teams Event Planning Intern Relationship Specialty Start Date End Date Roger Alexandra MD [address] [place] [address] PCP - General Family Medicine 12/29/19 documented as of this encounter
--- OUTSIDE RECORDS SUMMARY | 2023-11-16 19:23 | External Medical Summary | Summary of Care ---
Author Name Unknown Organization [facility] Address [address] [place] [address] Phone [phone] Care Team Providers Care Auxiliary Equipment Tender Name Role Phone Roger Alexandra MD Primary Care Provider [phone] Reason for Visit * Reason Onset Date Comments Appointment 09/15/2023 Encounter Details Date Type Department Care Team (Late st Contact Info) Description 09/15/2023 [facility]phone [facility] [place] [address] [place], [place] [phone] Services, Scheduling [address] [place] [address] Appointment (//) Allergies Active Allergy Reactions Criticality Noted Date Comments Aspirin Unknown 12/12/2007 von Willebrand's disease Salicylates 03/01/2000 von Willebrand's disease documented as of this encounter (statuses as of 09/17/2023) Medications Medication Sig Dispensed Refills Start Date End Date Status oxygen IN GASIndications:News Videotape Editor 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 respiratory failure (HCC),COPD, group [...] BEDTIME 60 Capsule 5 3 Active Nystatin 072618 UNIT/GM External Powder (Nyamyc) apply to affected [...] 11 3 Active Vitamin D3 1.25 MG (72133 UT) Oral Capsule Take 1 Capsule by [...] Pain, Moderate. 120 Tablet 0 3 Active Warfarin Sodium 5 [...] defect 02/04/2006 009 Atrial septal aneurysm 02/04/200612/21 nursing home current use of ant icoagulant therapy [...] 02/2010,09/20/2007,09/04/2003 Seasonal Influenza, Quadriva lent, No Preserve, IM [...] Encounter - Yara Morris RN - 09/17/2023 11:34 AM EDT I spoke with patient and verified that both dates work with her, she is agreeable to the 09/22 @ 11:30 and 09/29 @ 9:30/10 AM. Thank you! * Telephone Encounter - Edis Bee OSA - 09/15/2023 10:22 AM EDT Per request, scheduled zoe ret hv for vitals for 09/22 at 1130am and kaco return telemed for 09/29 at 930/10am, call to pt to confirm appts and no answer and vm is full, LMOM with son vitaliy to have pt call back documented in this encounter Plan of Treatment Upcoming Encounters Date Type Department Care Team (Late st Contact Info) Description 09/20/2023 3:30 PM [facility] Telemedicine Psychiatry, [address] [place] [address] Hugo Alcantara MD [address] [place] [address] 09/22/2023 11:30 AM EST Home Visit Care Coordination [address] [place] [address] Kim Carrizales, Community Health Mold Capper Helper [address] [place] [address] 09/27/2023 9:20 AM EST Laboratory Lab Mobile Phlebotomy C [address] [place] [address] [facility], [facility] Mobile Home Draw [address] [place] [address] 09/29/2023 9:30 AM EST Telemedicine [facility], [place] [address] [place] [address] Sharmaine Johns PA-C [address] [place] [address] Kim Carrizales, Community Health Mold Capper Helper [address] [place] [address] 01/07/2024 1:30 PM EST Office Visit Cardiology, [facility] [address] [place] [address] Saray Muhammad CRNP [address] [place] [address] Scheduled Procedures Name Priority Associated Diagnoses Date/Ti [...] 02/16/2022 LUNG CANCER SCREENING - USE SMARTSET 02273 Completed 2023, 03/16/2022, 08/24/2018, Additional history exists [...] Healthcare Agent Relationshi p Communication Laura Gant [facility] Health General Manager resentative (appointed verbally by patient or by statute hierarchy) Darlene Gilbert [facility] General Manager resentative (appointed verbally by patient or by statute hierarchy) Care Teams Auxiliary Equipment Tender Relationship Specialty Start Date End Date Roger Alexandra MD [address] [place] [address] PCP - General Family Medicine 12/29/19 documented as of this encounter
--- OUTSIDE RECORDS SUMMARY | 2023-11-16 19:23 | External Medical Summary | Summary of Care ---
Author Name Unknown Organization [facility] Address [address] [place] [address] Phone [phone] Care Team Providers Care Match Maker Name Role Phone Roger Alexandra MD Primary Care Provider [phone] [phone] Reason for Visit * Reason Onset Date Comments Appointment 09/17/2023 Encounter Details Date Type Department Care Team (Late st Contact Info) Description 09/17/2023 Telephone [facility] [place] [address] [place], [place] [phone] Services, Scheduling [address] [place] [address] Appointment (//) Allergies Active Allergy Reactions Criticality [...] BEDTIME 60 Capsule 5 04/05/2023 Active Nystatin 487354 UNIT/GM External Powder (Nyamyc) apply to affected [...] 11 07/07/2023 Active Vitamin D3 1.25 MG (40691 UT) Oral Capsule Take 1 Capsule by [...] MCG/ACT Inhalation Aerosol Powder Breath Activated (umeclidinium [place]) Inhale 1 Puff by mouth in the [...] [facility]) 2.5 mg NEBULIZER PRN 03/03/2023 03/02/2024 Acti ve Albuterol Sulfate (Proventil) (5 MG/ML) 0.5% *conc* inhalation solution 2.5 mgIndications:COPD, group D, by GOLD 2017 classification ([facility]) 2.5 mg NEBULIZER PRN 03/03/2023 03/02/2024 [...] defect 02/04/2006 009 Atrial septal aneurysm 02/04/200612/21 alf current use of ant icoagulant therapy 06/01/2005 [...] and vm is full, lmom with son stalin documented in this encounter Plan of Treatment Upcoming Encounters Date Type Department Care Team (Late st Contact Info) Description 09/17/2023 11:00 AM EDT Office Visit Family [address] [place] [address] Roger Alexandra MD 132 [place] [address] 09/20/2023 3:30 PM EST Telemedicine Psychiatry, [facility] [address] [place] [address] Hugo Alcantara MD [address] [place] [address] 09/22/2023 11:30 AM EST Home Visit Care Coordination [address] [place] [address] Kim Carrizales, Community Health Jockey Valet [address] [place] [address] 09/27/2023 9:20 AM EST Laboratory Lab Mobile Phlebotomy C [address] [place] [address] [facility], [facility] Mobile Home Draw [address] [place] [address] 09/29/2023 9:30 AM EST [facility]medicine [facility] [place], [place] [address] [place] [address] Sharmaine Johns PA-C [address] [place] [address] Kim Carrizales, Community Health Jockey Valet [address] [place] [address] 01/07/2024 1:30 PM EST Office Visit Cardiology, [facility] 132 [facility] [place] [address] Saray Muhammad CRNP 132 [place] [address] Scheduled Procedures Name Priority Associated Diagnoses Date/Ti [...] 02/16/2022 LUNG CANCER SCREENING - USE SMARTSET [id number] Completed 2023, 03/16/2022, 08/24/2018, Additional history exists [...] Agent Relationshi p Communication Laura Stalin [facility] Imitation Marble Mechanic resentative (appointed verbally by patient or by statute hierarchy) Darlene Gilbert Adult [facility] Health Imitation Marble Mechanic resentative (appointed verbally by patient or by statute hierarchy) Care Teams Match Maker Relationship Specialty Start Date End Date Roger Alexandra MD [address] [place] [address] PCP - General Family Medicine 12/29/19 documented as of this encounter
--- OUTSIDE RECORDS SUMMARY | 2023-11-16 19:24 | External Medical Summary | Summary of Care ---
Author Name Unknown Organization [facility] Address [address] [place] [address] Phone [phone] Care Team Providers Care Rubber Vulcanizing Machine Operator Name Role Phone Roger Alexandra MD Primary Care Provider [phone] [phone] Reason for Visit * Reason Onset Date Comments Appointment 09/08/2023 Encounter Details Date Type Department Care Team (Late st Contact Info) Description 09/08/2023 Telephone [facility] [place] [address] [place], [place] [phone] Services, Scheduling [address] [place] [address] Appointment (//) Allergies Active Allergy Reactions Criticality Noted Date Comments Aspirin Unknown 12/12/2007 von Willebrand's disease Salicylates 03/01/2000 von Willebrand's disease documented as of this encounter (statuses as of 09/08/2023) Medications Medication Sig Dispensed Refills Start Date [...] of Breath. 540 mL 12 10/23/2022 Active Donepezil HCl 5 MG Oral Tablet [...] BEDTIME 60 Capsule 5 04/05/2023 Active Nystatin 292313 UNIT/GM External Powder (Nyamyc) apply to affected [...] (congestive heart failure) ([facility]) Take 1 Tablet by mouth in the morning and 1 Tablet before bedtime. 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 06/01/2005 [...] as of this encounter (statuses as of 09/08/2023) Immunizations Name Administration Dates Next Due H1N1 [...] * Telephone Encounter - RUFINA Lozoya - 09/08/2023 3:56 PM EDT Call to pt to confirm new kaco telemed for 830/9am on 09/15, pt agreeable, confirmed connectivity and street address documented in this encounter Plan of Treatment Upcoming Encounters Date Type Department Care Team (Late st Contact Info) Description 09/09/2023 7:00 AM EDT Anticoagulation Pharmacy Call Center [address] [place] [address] [facility], [facility] [address] [place] [address] 09/15/2023 8:30 AM EDT Telemedicine [facility] at [facility], [place] [address] [place] [address] Sharmaine Johns PA-C [address] [place] [address] Kim Carrizales, Community Health Web Manager [address] [place] [address] 09/17/2023 11:00 AM EDT Office Visit Family Practice [facility] [address] [place] [address] Roger Alexandra MD [address] [place] [address] 09/20/2023 3:30 PM EST Telemedicine Psychiatry, [facility] 200 [place] [address] Hugo Alcantara MD [address] [place] [address] 01/07/2024 1:30 PM EST Office Visit Cardiology, [facility] [address] [place] [address] Saray Muhammad CRNP [address] [place] [address] Scheduled Procedures Name Priority Associated Diagnoses Date/Ti [...] 02/16/2022 LUNG CANCER SCREENING - USE SMARTSET 94416 Completed 2023, 03/16/2022, 08/24/2018, Additional history exists [...] Name Relationship Healthcare Agent Relationshi p Communication aLura Gant [facility] Senior Cytogenetics Laboratory Director resentative (appointed verbally by patient or by statute hierarchy) Darlene Gilbert [facility] Senior Cytogenetics Laboratory Director resentative (appointed verbally by patient or by statute hierarchy) Care Teams Rubber Vulcanizing Machine Operator Relationship Specialty Start Date End Date Roger Alexandra MD [address] [place] [address] PCP - General Family Medicine 12/29/19 documented as of this encounter
--- OUTSIDE RECORDS SUMMARY | 2023-11-16 19:24 | External Medical Summary | Summary of Care ---
Author Name Unknown Organization [facility] Address [address] [facility] [address] Phone [phone] Care Team Providers Care Boss Miner Name Role Phone Roger Alexandra MD Primary Care Provider +1 [phone] Reason for Visit * Reason Comments Status Check Dosage Adjustment Via Phone (anticoag Cl inic) Encounter Details Date Type Department Care Team (Latest Contact Info) Description 09/09/2023 7:00 AM EDT Anticoagulation Pharmacy Call Center [address] [place] [address] [facility] [address] [facility] [place] [address] Anticoagulation management encounter* Allergies Active Allergy Reactions Criticality Noted Date Comments Aspirin Unknown 12/12/2007 von Willebrand's disease Salicylates 03/01/2000 von Willebrand's disease documented as of this encounter (statuses as of 09/09/2023) Medications Medication Sig Dispensed Refills Start Date [...] BEDTIME 60 Capsule 5 04/05/2023 Active Nystatin 195363 UNIT/GM External Powder (Nyamyc) apply to affected [...] 11 07/07/2023 Active Vitamin D3 1.25 MG (79301 UT) Oral Capsule Take 1 Capsule by [...] as of this encounter (statuses as of 09/09/2023) Active Problems Problem Noted Date Diagnosed Date [...] as of this encounter (statuses as of 09/09/2023) Resolved Problems Problem Noted Date Diagnosed Date [...] 02/04/2006 009 Atrial septal aneurysm 02/04/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 [facility] will discharge at this time. Please refer to us if anything changes. Kim Mercado Rph, Pharm.D. Clinical Pharmacist [facility] ([facility]) (formerly Telepharmacy) [phone] 09/09/2023,2:21 PM * DANIEL Briones - 09/09/2023 1:12 PM EDT Received fax from [facility] stating "Patient was changed from warfarin to Apixaban". Will also scan the fax into the chart. Mali Olivares MA Wing Commander I [facility] ([facility]) (formerly Telepharmacy) * Kim Mercado RPh - 09/09/2023 12:39 PM EDT [facility] to fax flowsheets. [facility] will follow up with patient once info received. Kim Mercado Rph, Pharm.D. Clinical Pharmacist [facility] ([facility]) (formerly Telepharmacy) [phone] 09/09/2023,12:40 PM * DANIEL Hodge - 09/09/2023 12:09 PM EDT Telepharm [facility] [phone] Called Facility spoke to Other Machine Operator Packaging Cole . Patient has been discharged from facility as of 09/06/2023 . Pharmacist to follow up with patient/facility. I did leave a voicemail for Lead Etl Developer tocall back. Senior Developer could only provide the discharge date. Additional Information Provided by facility:None Thank you, Kathy Calabrese Lead Android Developer [facility] 09/09/2023,12:09 PM documented in this encounter Plan of Treatment Upcoming Encounters Date Type Department Care Team (Late st Contact Info) Description 09/15/2023 8:30 AM EDT Telemedicine [facility] [address] [place] [address] Sharmaine Johns PA-C [address] [place] [address] Kim Carrizales, Community Health Development Writer [address] [place] [address] 09/17/2023 11:00 AM EDT Office Visit Family [facility] 132 [facility] [place] [address] Roger Alexandra MD 132 [facility] [place] [address] 09/20/2023 3:30 PM EST Telemedicine Psychiatry, [facility] 200 [facility] [place] [address] Hugo Alcantara MD [address] [facility] [place] [address] 01/07/2024 1:30 PM EST Office Visit Cardiology, [facility] [address] [facility] [address] Saray Muhammad CRNP [address] [place] [address] Scheduled Procedures Name Priority Associated Diagnoses Date/Ti [...] 02/16/2022 LUNG CANCER SCREENING - USE SMARTSET 86939 Completed 2023, 03/16/2022, 08/24/2018, Additional history exists [...] monitoring documented in this encounter Advance Directives Healthcare Agents on File Name Relationship Healthcare Agent Relationshi p Communication Laura Gant [facility] Rep resentative (appointed verbally by patient or by statute hierarchy) Darlene Gilbert [facility] Rep resentative (appointed verbally by patient or by statute hierarchy) Care Teams Boss Miner Relationship Specialty Start Date End Date Roger Alexandra MD [address] [place] [address] PCP - General Family Medicine 12/29/19 documented as of this encounter
--- OUTSIDE RECORDS SUMMARY | 2023-11-16 19:24 | External Medical Summary | Summary of Care ---
Author Name Unknown Organization [facility] Address [address] [place] [address] Phone [phone] Care Team Providers Care Pass Worker Name Role Phone Jeevan Mclean MD Primary Care Provider [phone] Reason for Referral * Medication Prior Authorization - Authorized Specialty Diagnoses / Procedures Referred By Anna t Referred To Contact Diagnoses Chronic bilateral low back pain without sciatica Jeeavn Mclean MD [address] [place] [address] Referral ID Status Reason Start Date Expiration Date V isits Requested Visits Authorized [id number] Authorized 09/07/2023 11/14/2023 999 999 Reason for Visit * Reason Onset Date Comments Medication Refill 09/06/2023 Encounter Details Date Type Department Care Team (Late st Contact Info) Description 09/06/2023 Refill Family Practice [facility] [address] [place] [address] Jeevan Mclean MD [address] [place] [place] [address] Chronic bilateral low back pain without sciatica Allergies Active Allergy Reactions Criticality Noted Date Comments Aspirin Unknown 12/12/2007 von Willebrand's disease Salicylates 03/01/2000 von Willebrand's disease documented as of this encounter (statuses as of 09/09/2023) Medications Medication Sig Dispensed Refills Start Date End Date Status oxygen IN GASIndications:Molder 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 respiratory failure (HCC),COPD, group D, by GOLD 2017 classification ([facility]) Use 2 LPM at rest, 4 [...] BEDTIME 60 Capsule 5 04/05/2023 Active Nystatin 861238 UNIT/GM External Powder (Nyamyc) apply to affected [...] 05/24/2023 Active Furosemide 40 MG Oral Tablet (Lasix)Indications: [...] 11 07/07/2023 Active Vitamin D3 1.25 MG (43593 UT) Oral Capsule Take 1 Capsule by mouth once a week. 12 Capsule 0 07/13/2023 Active ProAir HFA 108 (90 Base) MCG/ACT Inhalation Aerosol SolutionIndications :Bronchitis, complicated Inhale 2 Puffs by mouth in the morning and 2 Puffs at noon and 2 Puffs in the evening and 2 Puffs before bedtime. 18 g 5 07/13/2023 Active Baclofen 10 MG Oral Tablet (Lioresal)Indicatio [...] the morning. 30 Tablet 1 08/24/2023 Active Acetaminophen-Codei ne 300-30 MG Oral TabletIndications:C hronic bilateral low back pain without sciatica Take 1 Tablet by mouth every 6 hours as needed for Pain, Moderate. 120 Tablet 0 09/07/2023 Active Acetaminophen-Codei ne 300-30 MG Oral TabletIndications:C hronic bilateral low back pain without sciatica Take 1 Tablet by mouth every 6 hours as needed for Pain, Moderate. 120 Tablet 0 07/26/2023 3 Discontinu ed(Refill) Hospital, Clinic, or Other [...] Telephone Encounter - Jeevan Mclean MD - 09/07/2023 10:03 AM EDTSigned Prescriptions: Disp Refills Acetaminophen-Codeine 300-30 MG Oral [id number] Ta*0 Sig: Take 1 Tablet by mouth every 6 hours as needed for Pain, Moderate. Authorizing Provider: JEEVAN MCLEAN * Telephone Encounter - Stuart Blair [facility] - 09/07/2023 9:46 AM EDTPending Prescriptions: Disp Refills Acetaminophen-Codeine 300-30 MG Oral Xuttog728 Ta*0 Sig: Take 1 Tablet by mouth every 6 hours as needed for Pain, Moderate. * Telephone Encounter - Stuart Blair [facility] - 09/07/2023 9:45 AM EDT I have reviewed the patients controlled substance dispensing history in the Prescription Drug Monitoring Program in compliance with the [facility] regulations before prescribing a controlled substance. PDMP checked on 09/07/2023. Pending Prescriptions: Disp Refills Acetaminophen-Codeine 300-30 MG Oral Tabl*120 Ta*0 Sig: Take 1 Tablet by mouth every 6 hours as needed for Pain, Moderate. Last Visit: 07/27/2023 (in office), 12/16/2022 (telemedicine) Next Visit: Visit date not found Date medication was last filled: 07/27/23 Date medication is due for refill: 08/25/23 Pharmacy: [id number] Is this request for a controlled substance? Yes and Urine Drug Screen Not completed Toxicology results: No results found. However, due to the size of the patient record, not all encounters were searched.Please check Results Review for a complete set of results. Please approve if appropriate. Thank You, Stuart Bustos [facility] Clinical Pharmacist Central[facility] Clinical Pharmacy Services (CCPS) (formerly Telepharmacy) 09/07/2023, 9:45 AM documented in this encounter Plan of Treatment Upcoming Encounters Date Type Department Care Team ([facility] Contact Info) Description 09/15/2023 8:30 AM EDT Telemedicine [facility], [place] [address] [place] [address] Sharmaine Johns PA-C [address] [place] [address] Kim Carrizales, Community Health Belt Builder Helper [address] [place] [address] 09/17/2023 11:00 AM EDT Office Visit Family Practice [facility] [address] [place] [address] Jeevan Mclean MD [address] [place] [address] 09/20/2023 3:30 PM EST Telemedicine Psychiatry, [address] [address] Hugo Alcantara MD [address] [place] [address] 01/07/2024 1:30 PM EST Office Visit Cardiology, [facility] [address] [place] [address] Saray Muhammad CRNP [address] [place] [address] Scheduled Procedures Name Priority Associated Diagnoses Date/Ti [...] 02/16/2022 LUNG CANCER SCREENING - USE SMARTSET 63729 Completed 2023, 03/16/2022, 08/24/2018, Additional history exists [...] Healthcare Agent Relationshi p Communication Laura Gant [facility] Health Rail Operations Controller resentative (appointed verbally by patient or by statute hierarchy) Darlene Gilbert [facility] Health Rail Operations Controller resentative (appointed verbally by patient or by statute hierarchy) Care Teams Pass Worker Relationship Specialty Start Date End Date Jeevan Mclean MD [address] [place] [address] PCP - General Family Medicine 12/29/19 documented as of this encounter
--- OUTSIDE RECORDS SUMMARY | 2023-11-16 19:24 | External Medical Summary | Summary of Care ---
Author Name Unknown Organization [facility] Address [address] [place] [address] Phone [phone] Care Team Providers Care Vpk Teacher Name Role Phone Roger Alexandra MD Primary Care Provider [phone] Reason for Visit * Reason Onset Date Comments case management 09/08/2023 Encounter Details Date Type Department Care Team (Late st Contact Info) Description 09/08/2023 Production Troubleshooter Telephone Family Practice [facility] [address] [place] [address] Yara Morris, RN [address] [place] [address] case management Allergies Active Allergy [...] BEDTIME 60 Capsule 5 04/05/2023 Active Nystatin 966806 UNIT/GM External Powder (Nyamyc) apply to affected [...] 11 07/07/2023 Active Vitamin D3 1.25 MG (84862 UT) Oral Capsule Take 1 Capsule by [...] Telephone Encounter - Yara Morris RN - 09/08/2023 2:08 PM EDT Production Troubleshooter Progress Note: Date: 09/08/23 Assigned Patient Tier: 2 Connected with patient via phone. Verified patient name/. Advised patient that call is being recorded for quality and training purposes. Assessment: Pt. noted the following: She is "okay" since being home from her hospitalization. She continues to feel short of breath. Feels her swelling has improved. She was taken off of Warfarin and placed on eliquis, also is now on sertraline, she cannot verbalize her other medications and granddaughter Clay was stating "they should be all on her Myportal" I did explain that we do not get this information automatically from [facility]. I have requested a d/c summary to be faxed to us. She has not yet heard from home health. Was previously seeing palliative HH with [facility]. Call made to [facility] who states anew referral will be needed. Did you receive an alert for an annual wellness visit? No Is this call for a hospital, intermediate or rehab facility discharge to home? Yes [facility] to [facility] 08/12 -09/06 Medication Reconciliation: Medication Reconciliation completed: yes Review of Current goals: Discussed the following patient-centered CM goals with the patient during this discussion: -COPD: Achieve successful management of COPD -Status: At Risk . -HEART FAILURE: Achieve successful management of heart failure. -Status: On Track improvement to BLE edema. -Activity: Patient will increase activity or maintain level as tolerated -Status: On Track . COPD Patient: YES Oxygen: 4LPM via N/C CHF Patient: YES Swelling: not currently present CM Plan: Referral to: [facility] for F2F for HH referral. Remote Patient Monitoring: At this time, RPM not offered/considered for patient due to patient has home devices in place. Plan for Future Contacts: Plan to follow up within 1 week to check progress on the following goals/needs cardio-pulmonary status. Planned contacts from the following parties will occur this week: [facility] Pharmacy as additional contacts per workflow. Advancement/Closure Plan: Keep patient at current Tier with reassessment per workflow. Patient provided CM contact information and encouraged to call with any changes in condition. SNP Member? No PCP Notified of enrollment in CM/HM program: Yes Is Provider in agreement with POC? Yes Yara Morris RN Outpatient Case Management documented in this encounter Plan of Treatment Upcoming Encounters Date Type Department Care Team (Late st Contact Info) Description 09/09/2023 7:00 AM EDT Anticoagulation Pharmacy Call Center [address] [place] [address] [facility] [address] [place] [place] [address] 09/17/2023 11:00 AM EDT Office Visit Family Practice [facility] [place] [address] Roger Alexandra MD [address] [place] [address] 09/20/2023 3:30 PM EST [address]med[address]ry, [address] [address] Hugo Alcantara MD [address] [place] [facility] [place] [address] 01/07/2024 1:30 PM EST Office Visit Cardiology, [facility] [address] [place] [address] Saray Muhammad CRNP [address] [place] [address] Scheduled Procedures Name Priority Associated Diagnoses Date/Ti [...] 02/16/2022 LUNG CANCER SCREENING - USE SMARTSET 300[address] Completed 2023, 03/16/2022, 08/24/2018, Additional history exists [...] p Communication Laura Gant [facility] Front End Application Developer resentative (appointed verbally by patient or by statute hierarchy) Darlene [facility] Front End Application Developer resentative (appointed verbally by patient or by statute hierarchy) Care Teams Vpk Teacher Relationship Specialty Start Date End Date Roger Alexandra MD [address] [place] [address] PCP - General Family Medicine 12/29/19 documented as of this encounter
--- OUTSIDE RECORDS SUMMARY | 2023-11-16 19:24 | External Medical Summary | Summary of Care ---
Author Name Unknown Organization [facility] Address [address] [place] [address] Phone [phone] Care Team Providers Care Personnel Associate Name Role Phone Roger Alexandra MD Primary Care Provider [phone] Reason for Referral * Evaluate & Treat - Unlimited Visits (Within 10 days (routine)) - Authorized Specialty Diagnoses / Procedures Referred By Contac t Referred To Contact HOME CARE / Home Care Diagnoses Chronic respiratory failure with hypoxia (HCC) Paroxysmal atrial fibrillation (HCC) Hospital discharge follow-up Recurrent UTI COPD, group D, by GOLD 2017 classification (HCC) Roger Alexandra MD [address] [place] [address] Referral ID Status Reason Start Date Expiration Date Visits Requested Visits Authorized [id number] Authorized Specialty Services Required 3 999 999 Question Answer Referral Priority Within 10 days (routine) Where should this appointment be scheduled? Smooth Comments Documentation of Ufrm-on-Funu Encounter Addendum Patient Name: Kimberly Kendall I certify that this patient is under my care and that I, or a nurse practitioner or physician's assistant professor of business working with me, had a ljge-op-dbpu encounter that meets the physician alqv-pw-fbig encounter requirements with this patient on: 09/15/23 scheduled hospital follow up appt The encounter with the patient was in [...] home care plan of care after discharge: Roger Alexandra MD My clinical findings support the need for the above services because: Further, I certify that my clinical findings support that this patient is homebound (i.e. Absences from home require considerable and taxing effort and are for medical reasons or church services or infrequently or of short duration when for other reason) because: COPD, CHF, Recent hospitalization Physician Signature: Date of Signature: Physician Printed Name: Roger Alexandra MD Reason for Visit * Reason Onset Date Comments case management 09/13/2023 Encounter Details Date Type Department Care Team (Late st Contact Info) Description 09/13/2023 Hotel Assistant General Manager Telephone Family Practice [address] [address] Yara Morris RN [address] [place] [address] case management Allergies Active Allergy Reactions Criticality Noted Date Comments Aspirin Unknown 12/12/2007 von Willebrand's disease Salicylates 03/01/2000 von Willebrand's disease documented as of this encounter (statuses as of 09/13/2023) Medications Medication Sig Dispensed Refills Start Date [...] BEDTIME 60 Capsule 5 04/05/2023 Active Nystatin 478086 UNIT/GM External Powder (Nyamyc) apply to affected [...] 11 07/07/2023 Active Vitamin D3 1.25 MG (24264 UT) Oral Capsule Take 1 Capsule by [...] as of this encounter (statuses as of 09/13/2023) Active Problems Problem Noted Date Diagnosed Date [...] as of this encounter (statuses as of 09/13/2023) Resolved Problems Problem Noted Date Diagnosed Date [...] 02/04/2006 009 Atrial septal aneurysm 02/04/200612/21 intermediate manager current use of ant icoagulant therapy [...] as of this encounter (statuses as of 09/13/2023) Immunizations Name Administration Dates Next Due H1N1 [...] Telephone Encounter - Yara Morris RN - 09/13/2023 10:20 AM EDT Patient left a VM on CM line stating that she has not had follow up from home health. She was possibly expecting [employer] health. Order placed. Faxed to [facility] to see if they will accept. documented in this encounter Plan of Treatment Upcoming Encounters Date Type Department Care Team (Late st Contact Info) Description 09/15/2023 8:30 AM EDT [facility]icine [facility], [place] [address] [place] [address] Sharmaine Johns PA-C [address] [place] [address] Kim Carrizales, Community Health Sap Basis Administrator [address] [place] [address] 09/17/2023 11:00 AM EDT Office Visit Family Practice [facility] [address] [place] [address] Roger Alexandra MD [address] [place] [address] 09/20/2023 3:30 PM EST Telemedicine Psychiatry, [address] [place] [address] Hugo Alcantara MD [address] [place] [address] 01/07/2024 1:30 PM EST Office Visit Cardiology, [facility] [address] [place] [address] Saray Muhammad CRNP [address] [place] [address] Scheduled Procedures Name Priority Associated Diagnoses Date/Ti me COLONOSCOPY FLEXIBLE PROXIMA L DIAGNOSTIC Recall History of colonic polyps Scheduled Referrals Name Type Priority Associated Diagnoses Orde r Schedule HOME HEALTH REFERRAL OP Referral Within 10 days (routine) Chronic respiratory failure with hypoxia (HCC) Paroxysmal atrial fibrillation (HCC) Hospital discharge follow-up Recurrent UTI COPD, group D, by GOLD 2017 classification (HCC) Ordered: 09/13/2023 Health Maintenance Due Date Last Done Comments [...] 02/16/2022 LUNG CANCER SCREENING - USE SMARTSET 12627 Completed 2023, 03/16/2022, 08/24/2018, Additional history exists [...] by GOLD 2017 classification (HCC)- Primary Chronic respiratory failure with hypoxia (HCC) Chronic respiratory failure Paroxysmal atrial fibrillation (HCC) Atrial fibrillation Hospital discharge follow-up Other follow-up examination Recurrent UTI Urinary tract infection, site not specified documented in this encounter Advance Directives Healthcare Agents on File Name Relationship Healthcare Agent Relationshi p Communication Laura Gant Adult [facility] Health Global Program Manager resentative (appointed verbally by patient or by statute hierarchy) Darleneasher Ruelaser Adult [facility] Health Global Program Manager resentative (appointed verbally by patient or by statute hierarchy) Care Teams Personnel Associate Relationship Specialty Start Date End Date Roger Alexandra MD [address] [place] [address] PCP - General Family Medicine 12/29/19 documented as of this encounter
--- OUTSIDE RECORDS SUMMARY | 2023-11-16 19:24 | External Medical Summary | Summary of Care ---
Author Name Unknown Organization [facility] Address [address] [facility] [address] Phone [phone] Care Team Providers Care Director Mission Name Role Phone Roger Alexandra MD Primary Care Provider [phone] Reason for Visit * Reason Onset Date Comments Appointment 08/13/2023 Encounter Details Date Type Department Care Team (Late st Contact Info) Description 08/13/2023 Telephone Gastroenterology, [facility] [address] [place] [address] Chrissie Barber CRNP [address] [place] [place] [address] Appointment Allergies Active Allergy Reactions Criticality Noted Date Comments Aspirin Unknown 12/12/2007 von Willebrand's disease Salicylates 03/01/2000 von Willebrand's disease documented as of this encounter (statuses as of 09/15/2023) Medications Medication Sig Dispensed Refills Start Date End Date Status oxygen IN GASIndications:Advertising Account Representative 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 respiratory failure (HCC),COPD, group D, [...] BEDTIME 60 Capsule 5 04/05/2023 Active Nystatin 985166 UNIT/GM External Powder (Nyamyc) apply to affected [...] 11 07/07/2023 Active Vitamin D3 1.25 MG (93789 UT) Oral Capsule Take 1 Capsule by [...] in the morning. 30 Tablet 6 01/26/2023 3 Discontinu ed(Refill) Acetaminophen-Codei ne 300-30 MG [...] defect 02/04/2006 009 Atrial septal aneurysm 02/04/200612/21 [facility] current use of ant icoagulant therapy 06/01/2005 [...] encounter Miscellaneous Notes * Telephone Encounter - Carlitos Cuevas OSA - 09/15/2023 9:42 AM EDT LMOM for pt to call back to schedule * Telephone Encounter - Carlitos Cuevas OSA - 08/26/2023 11:07 AM EDT Letter sent * Telephone Encounter - Carlitos Cuevas OSA - 08/24/2023 12:51 PM EDT Spoke to pt, still inpatient and not sure when she will be discharged * Telephone Encounter - Carlitos Cuevas OSA - 08/17/2023 2:20 PM EDT Spoke to pt, currently still inpatient and asked to be called back another time * Telephone Encounter - Chrissie Barber CRNP - 08/13/2023 11:41 AM EDT 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 Pls arrange OP EUS. She is currently admitted at [facility] for anemia COY Thornton documented in this encounter Plan of Treatment Upcoming Encounters Date Type Department Care Team (Late st Contact Info) Description 09/17/2023 11:00 AM EDT Office Visit Family Practice [facility] [address] [facility] [place] [address] Roger Alexandra MD [address] [facility] [place] [address] 09/20/2023 3:30 PM EST Telemedicine Psychiatry, [address] [place] [address] Hugo Alcantara MD [address] [place], [place] [address] 01/07/2024 1:30 PM EST Office Visit Cardiology, [facility] [address] [facility] [place] [address] Saray Muhammad CRNP [address] [place] [address] Scheduled Orders Name Type Priority Associated Diagnoses Orde r Schedule US ENDOSCOPIC Medical Imaging Routine Lipoma, unspecified site Ordered: 08/13/2023 Scheduled Procedures Name Priority Associated Diagnoses Date/Ti [...] 02/16/2022 LUNG CANCER SCREENING - USE SMARTSET 08923 Completed 2023, 03/16/2022, 08/24/2018, Additional history exists GARDASIL-HPV IMMUNIZATION SERIES Aged Out No longer eligible based on patient's age to complete this topic MENINGOCOCCAL (MENACTRA/MENVEO) Aged Out No longer eligible based on patient's age to complete this topic documented as of this encounter Medical Devices Not on filedocumented as of this encounter Visit Diagnoses Diagnosis Lipoma, unspecified site- Primary documented in this encounter Advance Directives Healthcare Agents on File Name Relationship Healthcare Agent Relationshi p Communication Laura Gant [facility] Rep resentative (appointed verbally by patient or by statute hierarchy) Darlene [facility] Dental Mold Maker resentative (appointed verbally by patient or by statute hierarchy) Care Teams Director Mission Relationship Specialty Start Date End Date Roger Alexandra MD [address] [place] [address] PCP - General Family Medicine 12/29/19 documented as of this encounter
--- OUTSIDE RECORDS SUMMARY | 2023-11-16 19:25 | External Medical Summary ---
Author Name Unknown Address Unknown Organization [facility] [address] [place] [address] Laboratory Report Ordering Provider Test Date Status SINA [facility] 09/05/2023 05:15:00 Final Observation Date Value Abnormality Reference (Units ) Status WBC, Total 09/05/2023 05:15:00 7.35 4.00-10.8 0 (K/uL) Final RBC 09/05/2023 05:15:00 3.91 3.85-5.15 (M/uL) Final Hemoglobin 09/05/2023 05:15:00 10.1 Below low normal 12 .0-15.3 (g/dL) Final HCT 09/05/2023 05:15:00 34.0 Below low normal 36. 0-45.2 (%) Final MCV 09/05/2023 05:15:00 87.0 81.5-97.5 (fL) Final MCH 09/05/2023 05:15:00 25.8 27.0-34.0 (pg) Final MCHC 09/05/2023 05:15:00 29.7 32.0-36.0 (g/dL) Final RDW 09/05/2023 05:15:00 18.4 11.5-15.5 (%) Final Platelets 09/05/2023 05:15:00 590 Above high normal 14 0-400 (K/uL) Final MPV 09/05/2023 05:15:00 8.7 6.6-11.1 ( fL) Final Performing Location [facility] [place] [address] [place] [address]
--- OUTSIDE RECORDS SUMMARY | 2023-11-16 19:25 | External Medical Summary | Summary of Care ---
Author Name Unknown Organization [facility] Address [address] [place] [address] Phone [phone] Care Team Providers Care White Work Cleaner Name Role Phone Roger Alexandra MD Primary Care Provider +1 [phone] Encounter Details Date Type Department Care Team (Late st Contact Info) Description 09/07/2023 Orders Only Outcomes Research Department [address] [place] [address] Niharika Hernandez CHRA [facility] Research Other*[id number] Allergies Active Allergy Reactions Criticality Noted Date Comments Aspirin Unknown 12/12/2007 von Willebrand's disease Salicylates 03/01/2000 von Willebrand's disease documented as of this encounter (statuses as of 09/07/2023) Medications Medication Sig Dispensed Refills Start Date [...] CARE),Chronic hypoxemic respiratory failure (HCC) Use with nebulized [...] BEDTIME 60 Capsule 5 04/05/2023 Active Nystatin 602365 UNIT/GM External Powder (Nyamyc) apply to affected [...] 11 07/07/2023 Active Vitamin D3 1.25 MG (65689 UT) Oral Capsule Take 1 Capsule by mouth once a week. 12 Capsule 0 07/13/2023 Active ProAir HFA 108 (90 Base) MCG/ACT Inhalation Aerosol SolutionIndications: Bronchitis, complicated Inhale 2 Puffs by mouth in the morning and 2 Puffs at noon and 2 Puffs in the evening and 2 Puffs before bedtime. 18 g 5 07/13/2023 Active Acetaminophen-Codein e 300-30 MG Oral TabletIndications:Ch ronic bilateral low back pain without sciatica Take 1 Tablet by mouth every 6 hours as needed for Pain, Moderate. 120 Tablet 0 07/26/2023 Active Baclofen 10 MG Oral Tablet (Lioresal)Indication [...] the morning. 30 Tablet 1 08/24/2023 Active Hospital, Clinic, or Other Facility Administered [...] as of this encounter (statuses as of 09/07/2023) Active Problems Problem Noted Date Diagnosed Date [...] as of this encounter (statuses as of 09/07/2023) Resolved Problems Problem Noted Date Diagnosed Date [...] as of this encounter (statuses as of 09/07/2023) Immunizations Name Administration Dates Next Due H1N1 [...] 7:00 AM EDT Anticoagulation Pharmacy Call Center [address] [place] [address] Ccps, [facility] [address] [place] [address] 09/20/2023 3:30 PM EST Telemedicine Psychiatry, [address] [address] Hugo Alcantara MD [address] [place] [address] 01/07/2024 1:30 PM EST Office Visit Cardiology, [facility] [address] [place] [address] Saray Muhammad CRNP [address] [place] [address] Scheduled Orders Name Type Priority Associated Diagnoses Orde r Schedule MYCODE SUBSEQUENT ADULT Lab Routine MyCode Research Other*[id number] Every 6 Months for 2 Occurrences starting 09/07/2023 until 09/26/2024 Scheduled Procedures Name Priority Associated Diagnoses Date/Ti [...] 02/16/2022 LUNG CANCER SCREENING - USE SMARTSET [id number] Completed 2023, 03/16/2022, 08/24/2018, Additional history exists GARDASIL-HPV IMMUNIZATION SERIES Aged Out No longer eligible based on patient's age to complete this topic MENINGOCOCCAL (MENACTRA/MENVEO) Aged Out No longer eligible based on patient's age to complete this topic documented as of this encounter Medical Devices Not on filedocumented as of this encounter Visit Diagnoses Diagnosis MyCode Research Other*[id number] documented in this encounter Advance Directives Healthcare Agents on File Name Relationship Healthcare Agent Relationshi p Communication Laura Gant Adult [facility] Health Supervisor Coating resentative (appointed verbally by patient or by statute hierarchy) Darlene Gilbert Adult [facility] Health Supervisor Coating resentative (appointed verbally by patient or by statute hierarchy) Care Teams White Work Cleaner Relationship Specialty Start Date End Date Roger Alexandra MD [address] [place] [address] PCP - General Family Medicine 12/29/19 documented as of this encounter
--- OUTSIDE RECORDS SUMMARY | 2023-11-16 19:25 | External Medical Summary | Summary of Care ---
Author Name Unknown Organization [facility] Address [address] [place] [address] Phone [phone] Care Team Providers Care Teen Counselor Name Role Phone Jeevan Mclean MD Primary Care Provider [phone] [phone] Reason for Referral * Medication Prior Authorization - Pending Review Specialty Diagnoses / Procedures Referred By Anna hendrix Referred To Contact Diagnoses Chronic bilateral low back pain without sciatica Jeevan Mclean MD [address] [place] [address] Referral ID Status Reason Start Date Expiration Date V isits Requested Visits Authorized [id number] Pending Review [phone] Reason for Visit * Reason Onset Date Comments Medication Refill 09/06/2023 Encounter Details Date Type Department Care Team (Late st Contact Info) Description 09/06/2023 Refill Family Practice [facility] [address] [place] [address] Jeevan Mclean MD [address] [place] [address] Chronic bilateral low back pain without sciatica Allergies Active Allergy Reactions Criticality Noted Date Comments Aspirin Unknown 12/12/2007 von Willebrand's disease Salicylates 03/01/2000 von Willebrand's disease documented as of this encounter (statuses as of 09/07/2023) Medications Medication Sig Dispensed Refills Start Date End Date Status oxygen IN GASIndications:Cloth Shader 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 respiratory failure (HCC),COPD, group D, by GOLD 2017 classification ([facility]) Use 2 LPM at rest, 4 LPM [...] BEDTIME 60 Capsule 5 04/05/2023 Active Nystatin 753830 UNIT/GM External Powder (Nyamyc) apply to affected [...] 11 07/07/2023 Active Vitamin D3 1.25 MG (13201 UT) Oral Capsule Take 1 Capsule by [...] defect 02/04/2006 009 Atrial septal aneurysm 02/04/200612/21 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 Authorizing Provider: JEEVAN MCLEAN * Telephone Encounter - Stuart Blair [facility] - 09/07/2023 9:46 AM EDTPending Prescriptions: Disp Refills Acetaminophen-Codeine 300-30 MG Oral [id number] Ta*0 Sig: Take 1 Tablet by mouth every 6 hours as needed for Pain, Moderate. * Telephone Encounter - Stuart Blair RP - 09/07/2023 9:45 AM EDT I have reviewed the patients controlled substance dispensing history in the Prescription Drug Monitoring Program in compliance with the [facility] regulations before prescribing a controlled substance. [...] due for refill: 08/25/23 Pharmacy: [id number] [address] [place] [address] Is this request for a controlled substance? Yes and Urine Drug Screen Not completed Toxicology results: No results found. However, due to the size of the patient record, not all encounters were searched.Please check Results Review for a complete set of results. Please approve if appropriate. Thank You, Stuart Bustos [facility] Clinical Pharmacist Centralized Clinical Pharmacy Services (CCPS) (formerly Telepharmacy) 09/07/2023, 9:45 AM documented in this encounter Plan of Treatment Upcoming Encounters Date Type Department Care Team ([facility] st Contact Info) Description 09/09/2023 7:00 AM EDT Anticoagulation Pharmacy Call Center [address] [facility] [place] [address] [facility] [address] 60 [facility] [place] [address] 09/20/2023 3:30 PM EST Telemedicine Psychiatry, [facility] [address] [place] [address] Hugo Alcantara MD [address] [place], [place] [address] 01/07/2024 1:30 PM EST Office Visit Cardiology, [facility] [address] [place] [address] Saray Muhammad CRNP [address] [place] [address] Scheduled Procedures Name Priority Associated Diagnoses Date/Ti [...] 02/16/2022 LUNG CANCER SCREENING - USE SMARTSET [id number] Completed 2023, 03/16/2022, 08/24/2018, Additional history exists [...] Healthcare Agent Relationshi p Communication Laura Gant [facility] Health Bag Machine Operator Helper resentative (appointed verbally by patient or by statute hierarchy) Darleneasher Gilbert [facility] Health Bag Machine Operator Helper resentative (appointed verbally by patient or by statute hierarchy) Care Teams Teen Counselor Relationship Specialty Start Date End Date Jeevan Mclean MD [address] [place] [address] PCP - General Family Medicine 12/29/19 documented as of this encounter
--- OUTSIDE RECORDS SUMMARY | 2023-11-16 19:25 | External Medical Summary ---
Author Name Unknown Address Unknown Organization [facility] [address] [place] [address] Laboratory Report Ordering Provider Test Date Status SINA ORTEGA 09/05/2023 05:15:00 Final Observation Date Value Abnormality Reference (Units ) Status BUN 09/05/2023 05:15:00 17 6-20 (mg/dL) Final Creatinine 09/05/2023 05:15:00 1.0 0.5-1.0 (mg/dL) Final Glomerular filtration rate/1.73 sq M.predicted [Volume Rate/Area] in Serum, Plasma or Blood by Creatinine-based formula (CKD-EPI) 09/05/2023 05:15:00 60 >=60 (mL/min) Final eGFR is calculated based on the CKD-EPI 2020 equation SODIUM 09/05/2023 05:15:00 138 135-146 (m mol/L) Final Potassium 09/05/2023 05:15:00 2.9 Below low normal 3.5 -5.1 (mmol/L) Final Cl 09/05/2023 05:15:00 85 Below low normal 98- 107 (mmol/L) Final CO2 09/05/2023 05:15:00 39 Above high normal 22 -32 (mmol/L) Final Anion gap 09/05/2023 05:15:00 14 7-15 (mmol /L) Final Glucose 09/05/2023 05:15:00 120 70-120 (mg /dL) Final Calcium 09/05/2023 05:15:00 9.3 8.4-10.2 ( mg/dL) Final Performing Location [facility] [address] [place] [address]
--- OUTSIDE RECORDS SUMMARY | 2023-11-16 19:25 | External Medical Summary | Summary of Care ---
Author Name Unknown Organization [facility] Address [address] [facility] [address] Phone [phone] Care Team Providers Care Clinical Application Specialist Name Role Phone Roger Alexandra MD Primary Care Provider [phone] [phone] Reason for Visit * Reason Comments Status Check Encounter Details Date Type Department Care Team Description 09/02/2023 [facility]tico[facility] [address] [facility] [address] [facility] [address] [place] [address] Anticoagulation management encounter* Allergies Active Allergy Reactions Severity Noted Date Comments Aspirin Unknown 12/12/2007 von Willebrand's disease Salicylates 03/01/2000 von Willebrand's disease documented as of this encounter (statuses as of 09/02/2023) Medications Medication Sig Dispensed Refills Start Date [...] ([facility]),Chronic hypoxemic respiratory failure (HCC) Use [...] BEDTIME 60 Capsule 5 04/05/2023 Active Nystatin 531744 UNIT/GM External Powder (Nyamyc) apply to affected [...] 11 07/07/2023 Active Vitamin D3 1.25 MG (81581 UT) Oral Capsule Take 1 Capsule by [...] as of this encounter (statuses as of 09/02/2023) Active Problems Problem Noted Date Prediabetes 07/13/2023 Decreased functional mobility 08/28/2022 History of narcotic addiction 12/19/2021 Chronic respiratory failure with hypoxia 06/12/2021 COPD, group D, by GOLD 2017 classificati [...] as of this encounter (statuses as of 09/02/2023) Resolved Problems Problem Noted Date Resolved Date [...] 03/14/2007 Medical home patient encounter 07/31/2004 0 07/27/2023 CVA 07/31/2004 02/28/2009 Overview: Modified per [...] as of this encounter (statuses as of 09/02/2023) Immunizations Name Administration Dates Next Due H1N1 [...] of this encounter Progress Notes * DANIEL Cornejo - 09/02/2023 11:02 AM EDT Telepharm AntiCoag [facility] Home Follow Up Kimberly Kendall [facility] - [phone] Called Facility spoke to Other Sustainability Purchasing Agent [facility] . Confirmed patient remains admitted to facility at this time, coumadin is managed in house by facility provider. No Discharge plans in place at this time, [facility] will continue to follow up for discharge. Follow up scheduled in 1 week.. Additional Information Provided by facility: Thank you, Narcisa Nagy Flatwork Presser Centralized Clinical Pharmacy Services (CCPS) (Formerly Telepharmacy) 09/02/2023, 11:03 AM documented in this encounter Plan of Treatment Upcoming Encounters Date Type Specialty Care Team Description 09/02/2023 Laboratory Laboratory Processing [facility] [address] [place] [address] Arrived 09/09/2023 Anticoagulation Pharmacy Ccps, [facility] [address] [place] [address] 09/20/2023 Telemedicine Psychiatry Hugo Alcantara MD [address] [place] [address] 01/07/2024 Office Visit Cardiology Saray Muhammad CRNP [address] [place] [address] Scheduled Procedures Name Priority Associated Diagnoses Date/Ti [...] 02/16/2022 LUNG CANCER SCREENING - USE SMARTSET 10544 Completed 2023, 03/16/2022, 08/24/2018, Additional history exists [...] Agent Relationshi p Communication Laura Gant Adult [facility] Health Hydraulic Assembler resentative (appointed verbally by patient or by statute hierarchy) Darlene Gilbert Adult [facility] Health Hydraulic Assembler resentative (appointed verbally by patient or by statute hierarchy) Care Teams Clinical Application Specialist Relationship Specialty Start Date End Date Roger Alexandra MD [address] [place] [address] PCP - General Family Medicine 12/29/19 documented as of this encounter
--- OUTSIDE RECORDS SUMMARY | 2023-11-16 19:25 | External Medical Summary | Summary of Care ---
Author Name Unknown Organization [facility] Address [address] [place] [place] [address] Phone [phone] Care Team Providers Care Repair Department Supervisor Name Role Phone Roger Alexandra MD Primary Care Provider [phone] Reason for Visit * Reason Onset Date Comments Advice 06/03/2023 Encounter Details Date Type Department Care Team Description 06/03/2023 Telephone Family Practice [facility] [address] [place] [address] Roger Alexandra MD [address] [place] [address] Advice Allergies Active Allergy Reactions Severity Noted [...] BEDTIME 60 Capsule 5 04/05/2023 Active Nystatin 467589 UNIT/GM External Powder (Nyamyc) apply to affected area twice a day 60 g 1 05/10/2023 Active Warfarin Sodium 5 MG Oral Tablet (Coumadin)Indication s:Paroxysmal atrial fibrillation (HCC) Take 0.5-1 Tablets by mouth every evening. OR DIRECTED BY [facility]IN CLINIC 90 Tablet 3 05/15/2023 Active Ramelteon 8 MG Oral Tablet (Rozerem) Take 1 Tablet by mouth at bedtime. 30 Tablet 1 05/24/2023 Active Hospital, Clinic, or Other Facility Administered [...] 02/04/2006 12/21/2008 Atrial septal aneurysm 02/04/2006 9 predatory animal exterminator current use of anticoagulant therapy 0 [...] Telephone Encounter - Temi West LPN - 06/03/2023 12:33 PM EDT Provider to address: HH Concerns Lopez RN Calling from: [facility] Report/Concerns of: noncompliance Vitals: BP 124/82, P 86, RR 20, T 97.5, SP O2 92% with 02 at 4 LPM, Weight 317, Lung sounds expiratory wheezing bilaterally did not appear in distress. Narrative Reports that thet have had multiple visits with the pt and the pt is non compliant with the prescribed diet and has fluctuation in her weight. Last visit the pt weighted 310 but the pt doesnot weight herself daily to keep up with the trend. [facility] Call back Lopez with any advice or orders at [phone] Please fax new orders to [phone] Reason for Call: Advice Contact: Telephone Call Contact Type: Care Coordination Total Time including non face to face (minutes): 10 * Telephone Encounter - RUFINA Luna - 06/03/2023 12:31 PM EDT Reason for patient's call: Home Visit Caller was transferred to [facility] at the nurse line. documented in this encounter Plan of Treatment Upcoming Encounters Date Type Specialty Care Team Description 09/09/2023 Anticoagulation Pharmacy [facility] [address] [facility] [place] [address] 09/20/2023 Telemedicine Psychiatry [facility]ara [facility] [address] [facility] [address] 01/07/2024 Office Visit Cardiology Saray Muhammad CRNP [address] [place] [address] Scheduled Procedures Name Priority Associated Diagnoses Date/Ti [...] 02/16/2022 LUNG CANCER SCREENING - USE SMARTSET 97513 Completed 2023, 03/16/2022, 08/24/2018, Additional history exists [...] patient or by statute hierarchy) Darlene Gilbert [facility] Rep resentative (appointed verbally by patient or by statute hierarchy) Care Teams Repair Department Supervisor Relationship Specialty Start Date End Date Roger Alexandra MD [address] [place] [address] PCP - General Family Medicine 12/29/19 documented as of this encounter
--- OUTSIDE RECORDS SUMMARY | 2023-11-16 19:26 | External Medical Summary ---
Author Name Unknown Address Unknown Organization K[facility] [place] [address] Laboratory Report Ordering Provider Test Date Status SUJATHA CHRISTENSEN 09/02/2023 06:15:00 Final Observation Date Value Abnormality Reference (Units ) Status WBC, Total 09/02/2023 06:15:00 7.87 4.00-10.8 0 (K/uL) Final RBC 09/02/2023 06:15:00 3.42 3.85-5.15 (M/uL) Final Hemoglobin 09/02/2023 06:15:00 8.7 Below low normal 12 .0-15.3 (g/dL) Final HCT 09/02/2023 06:15:00 31.0 Below low normal 36. 0-45.2 (%) Final MCV 09/02/2023 06:15:00 90.6 81.5-97.5 (fL) Final MCH 09/02/2023 06:15:00 25.4 27.0-34.0 (pg) Final MCHC 09/02/2023 06:15:00 28.1 32.0-36.0 (g/dL) Final RDW 09/02/2023 06:15:00 18.2 11.5-15.5 (%) Final Platelets 09/02/2023 06:15:00 503 Above high normal 14 0-400 (K/uL) Final MPV 09/02/2023 06:15:00 8.9 6.6-11.1 ( fL) Final Performing Location [facility] [place] [address]
--- OUTSIDE RECORDS SUMMARY | 2023-11-16 19:26 | External Medical Summary ---
Author Name Unknown Address Unknown Organization [facility] [place] [address] Laboratory Report Ordering Provider Test Date Status SUJATHA CHRISTENSEN 09/02/2023 06:15:00 Final Observation Date Value Abnormality Reference (Units ) Status BUN 09/02/2023 06:15:00 16 6-20 (mg/dL) Final Creatinine 09/02/2023 06:15:00 1.0 0.5-1.0 (mg/dL) Final Glomerular filtration rate/1.73 sq M.predicted [Volume Rate/Area] in Serum, Plasma or Blood by Creatinine-based formula (CKD-EPI) 09/02/2023 06:15:00 63 >=60 (mL/min) Final eGFR is calculated based on the CKD-EPI 2020 equation SODIUM 09/02/2023 06:15:00 141 135-146 (m mol/L) Final Potassium 09/02/2023 06:15:00 4.2 3.5-5.1 (m mol/L) Final Cl 09/02/2023 06:15:00 96 Below low normal 98- 107 (mmol/L) Final CO2 09/02/2023 06:15:00 34 Above high normal 22 -32 (mmol/L) Final Anion gap 09/02/2023 06:15:00 11 7-15 (mmol /L) Final Glucose 09/02/2023 06:15:00 103 70-120 (mg /dL) Final Calcium 09/02/2023 06:15:00 8.7 8.4-10.2 ( mg/dL) Final Performing Location [facility] [address]
--- OUTSIDE RECORDS SUMMARY | 2023-11-16 19:26 | External Medical Summary | Summary of Care ---
Author Name Unknown Organization [facility] Address [address] [facility] [address] Phone [phone] Care Team Providers Care Nurse Epidemiologist Name Role Phone Roger Alexandra MD Primary Care Provider [phone] [phone] Reason for Visit * Reason Onset Date Comments Appointment 08/13/2023 Encounter Details Date Type Department Care Team Description 08/13/2023 Telephone Gastroenterology, [facility] [address] [place] [address] Chrissie Barber CRNP [address] [place] [address] Appointment Allergies Active Allergy Reactions Severity Noted Date Comments Aspirin Unknown 12/12/2007 von Willebrand's disease Salicylates 03/01/2000 von Willebrand's disease documented as of this encounter (statuses as of 08/26/2023) Medications Medication Sig Dispensed Refills Start Date End Date Status oxygen IN GASIndications:Warp Spooler 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 respiratory failure (HCC),COPD, group D, [...] ([facility]),Chronic hypoxemic respiratory failure (HCC) Use with nebulized meds 1 Each 0 09/16/2022 Active Full Kit Nebulizer SetIndications:COPD , group D, by GOLD 2017 classification ([facility]),Chronic hypoxemic respiratory failure (HCC) Use with [...] BEDTIME 60 Capsule 5 04/05/2023 Active Nystatin 430612 UNIT/GM External Powder (Nyamyc) apply to affected [...] 11 07/07/2023 Active Vitamin D3 1.25 MG (65330 UT) Oral Capsule Take 1 Capsule by mouth once a week. 12 Capsule 0 07/13/2023 3 Active ProAir HFA 108 (90 Base) MCG/ACT Inhalation Aerosol SolutionIndications :Bronchitis, complicated Inhale 2 Puffs by mouth in the morning and 2 Puffs at noon and 2 Puffs in the evening and 2 Puffs before bedtime. 18 g 5 07/13/2023 Active Acetaminophen-Codei ne 300-30 MG Oral TabletIndications:C hronic bilateral low back pain without sciatica Take 1 Tablet by mouth every 6 hours as needed for Pain, Moderate. 120 Tablet 0 07/26/2023 Active Baclofen 10 MG Oral Tablet (Lioresal)Indicatio [...] 30 Tablet 6 01/26/2023 3 Discontinu ed(Refill) Hospital, Clinic, or Other [...] as of this encounter (statuses as of 08/26/2023) Active Problems Problem Noted Date Prediabetes 07/13/2023 [...] as of this encounter (statuses as of 08/26/2023) Resolved Problems Problem Noted Date Resolved Date [...] 02/04/2006 12/21/2008 Atrial septal aneurysm 02/04/2006 9 community health agent current use of anticoagulant therapy 0 [...] as of this encounter (statuses as of 08/26/2023) Immunizations Name Administration Dates Next Due H1N1 [...] Miscellaneous Notes * Telephone Encounter - RUFINA García - 08/26/2023 11:07 AM EDT Letter sent * Telephone Encounter - RUFINA García - 08/24/2023 12:51 PM EDT Spoke to pt, still inpatient and not sure when she will be discharged * Telephone Encounter - RUFINA García - 08/17/2023 2:20 PM EDT Spoke to pt, currently still inpatient and asked to be called back another time * Telephone Encounter - COY Hahn - 08/13/2023 11:41 AM EDT 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 Pls arrange OP EUS. She is currently admitted at [facility] for anemia COY Thornton documented in this encounter Plan of Treatment Upcoming Encounters Date Type Specialty Care Team Description 09/02/2023 Anticoagulation Pharmacy [facility] [address] [facility] [place] [address] 09/20/2023 Telemedicine Psychiatry Hugo Alcantara MD [address] [facility] [place] [address] 01/07/2024 Office Visit Cardiology Saray Muhammad CRNP [address] [place] [address] Scheduled Orders Name Type Priority Associated Diagnoses [...] 02/16/2022 LUNG CANCER SCREENING - USE SMARTSET 43846 Completed 2023, 03/16/2022, 08/24/2018, Additional history exists [...] Healthcare Agent Relationshi p Communication Laura Gant [facility] Health Advanced Manufacturing Associate resentative (appointed verbally by patient or by statute hierarchy) Darlene Gilbert [facility] Advanced Manufacturing Associate resentative (appointed verbally by patient or by statute hierarchy) Care Teams Nurse Epidemiologist Relationship Specialty Start Date End Date Roger Alexandra MD [address] [place] [address] PCP - General Family Medicine 12/29/19 documented as of this encounter
--- OUTSIDE RECORDS SUMMARY | 2023-11-16 19:26 | External Medical Summary ---
Author Name Unknown Address Unknown Organization [facility] [address] [place] [address] Laboratory Report Ordering Provider Test Date Status SINA ORTEGA 08/28/2023 06:20:00 Final Observation Date Value Abnormality Reference (Units ) Status WBC, Total 08/28/2023 06:20:00 10.44 4.00-10.8 0 (K/uL) Final RBC 08/28/2023 06:20:00 3.12 3.85-5.15 (M/uL) Final Hemoglobin 08/28/2023 06:20:00 8.2 Below low normal 12 .0-15.3 (g/dL) Final HCT 08/28/2023 06:20:00 28.4 Below low normal 36. 0-45.2 (%) Final MCV 08/28/2023 06:20:00 91.0 81.5-97.5 (fL) Final MCH 08/28/2023 06:20:00 26.3 27.0-34.0 (pg) Final MCHC 08/28/2023 06:20:00 28.9 32.0-36.0 (g/dL) Final RDW 08/28/2023 06:20:00 17.4 11.5-15.5 (%) Final Platelets 08/28/2023 06:20:00 433 Above high normal 14 0-400 (K/uL) Final MPV 08/28/2023 06:20:00 9.6 6.6-11.1 ( fL) Final Performing Location LABORATORY [place] [facility] [address] [place] [address]
--- OUTSIDE RECORDS SUMMARY | 2023-11-16 19:26 | External Medical Summary ---
Author Name Unknown Address Unknown Organization K0G:LABORATORY [place] [address] [place] [address] Laboratory Report Ordering Provider Test Date Status SINA ORTEGA 08/28/2023 06:20:00 Final Observation Date Value Abnormality Reference (Units ) Status BUN 08/28/2023 06:20:00 16 6-20 (mg/dL) Final Creatinine 08/28/2023 06:20:00 1.0 0.5-1.0 (mg/dL) Final Glomerular filtration rate/1.73 sq M.predicted [Volume Rate/Area] in Serum, Plasma or Blood by Creatinine-based formula (CKD-EPI) 08/28/2023 06:20:00 66 >=60 (mL/min) Final eGFR is calculated based on the CKD-EPI 2020 equation SODIUM 08/28/2023 06:20:00 142 135-146 (m mol/L) Final Potassium 08/28/2023 06:20:00 3.5 3.5-5.1 (m mol/L) Final Cl 08/28/2023 06:20:00 96 Below low normal 98- 107 (mmol/L) Final CO2 08/28/2023 06:20:00 34 Above high normal 22 -32 (mmol/L) Final Anion gap 08/28/2023 06:20:00 12 7-15 (mmol /L) Final Glucose 08/28/2023 06:20:00 70 70-120 (mg /dL) Final Calcium 08/28/2023 06:20:00 8.4 8.4-10.2 ( mg/dL) Final Performing Location LABORATORY [facility] [address] [place] [address]
--- OUTSIDE RECORDS SUMMARY | 2023-11-16 19:27 | External Medical Summary ---
Author Name Unknown Address Unknown Organization K09:[facility]ATORY [place] [address] Laboratory Report Ordering Provider Test Date Status SUJATHA CHRISTENSEN 08/26/2023 05:55:00 Final Observation Date Value Abnormality Reference (Units ) Status BUN 08/26/2023 05:55:00 16 6-20 (mg/dL) Final Creatinine 08/26/2023 05:55:00 0.9 0.5-1.0 (mg/dL) Final Glomerular filtration rate/1.73 sq M.predicted [Volume Rate/Area] in Serum, Plasma or Blood by Creatinine-based formula (CKD-EPI) 08/26/2023 05:55:00 75 >=60 (mL/min) Final eGFR is calculated based on the CKD-EPI 2020 equation SODIUM 08/26/2023 05:55:00 139 135-146 (m mol/L) Final Potassium 08/26/2023 05:55:00 3.5 3.5-5.1 (m mol/L) Final Cl 08/26/2023 05:55:00 99 98-107 (mm ol/L) Final CO2 08/26/2023 05:55:00 30 22-32 (mmo l/L) Final Anion gap 08/26/2023 05:55:00 10 7-15 (mmol /L) Final Glucose 08/26/2023 05:55:00 85 70-120 (mg /dL) Final Calcium 08/26/2023 05:55:00 8.2 Below low normal 8.4 -10.2 (mg/dL) Final Performing Location LAB[facility]ATORY [place] [address]
--- OUTSIDE RECORDS SUMMARY | 2023-11-16 19:27 | External Medical Summary | Summary of Care ---
Author Name Unknown Organization [facility] Address [address] [facility] [address] Phone [phone] Care Team Providers Care Trimming Machine Operator Name Role Phone Roger Alexandra MD Primary Care Provider [phone] [phone] Reason for Visit * Reason Onset Date Comments Appointment 08/13/2023 Encounter Details Date Type Department Care Team Description 08/13/2023 Telephone Gastroenterology, [facility] [address] [place] [address] Chrissie Barber CRNP [address] [place] [address] Appointment Allergies Active Allergy Reactions Severity Noted Date Comments Aspirin Unknown 12/12/2007 von Willebrand's disease Salicylates 03/01/2000 von Willebrand's disease documented as of this encounter (statuses as of 08/24/2023) Medications Medication Sig Dispensed Refills Start Date End Date Status oxygen IN GASIndications: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),COPD, group [...] - [facility]),Chronic hypoxemic respiratory failure (HCC) Use with nebulized meds 1 Each 0 09/16/2022 Active Full Kit Nebulizer SetIndications:COPD , group D, by GOLD 2017 classification ([facility]),Chronic hypoxemic respiratory failure (HCC) Use with nebulizer [...] BEDTIME 60 Capsule 5 04/05/2023 Active Nystatin 781611 UNIT/GM External Powder (Nyamyc) apply to affected [...] 11 07/07/2023 Active Vitamin D3 1.25 MG (11789 UT) Oral Capsule Take 1 Capsule by [...] as of this encounter (statuses as of 08/24/2023) Active Problems Problem Noted Date Prediabetes 07/13/2023 [...] as of this encounter (statuses as of 08/24/2023) Resolved Problems Problem Noted Date Resolved Date [...] as of this encounter (statuses as of 08/24/2023) Immunizations Name Administration Dates Next Due H1N1 [...] OP EUS. She is currently admitted at [facility] for anemia COY Thornton documented in this encounter Plan of Treatment Upcoming Encounters Date Type Specialty Care Team Description 08/25/2023 [facility] [address] [facility] [place] [address] 09/20/2023 Telemedicine Psychiatry Hugo Al[facility]antara [facility] [address] [facility] [id number] 01/07/2024 Office Visit Cardiology Saray Muhammad CRNP [address] [place] [address] Scheduled Orders Name Type Priority Associated Diagnoses [...] 02/16/2022 LUNG CANCER SCREENING - USE SMARTSET 39942 Completed 2023, 03/16/2022, 08/24/2018, Additional history exists [...] Healthcare Agent Relationshi p Communication Laura Gant [facility] Satellite General Agent resentative (appointed verbally by patient or by statute hierarchy) Darlene Gilbert [facility] Rep resentative (appointed verbally by patient or by statute hierarchy) Care Teams Trimming Machine Operator Relationship Specialty Start Date End Date Roger Alexandra MD [address] [place] [address] PCP - General Family Medicine 12/29/19 documented as of this encounter
--- OUTSIDE RECORDS SUMMARY | 2023-11-16 19:27 | External Medical Summary ---
Author Name Unknown Address Unknown Organization K09:[facility] [place] [address] Laboratory Report Ordering Provider Test Date Status SUJATHA CHRISTENSEN 08/26/2023 05:55:00 Final Observation Date Value Abnormality Reference (Units ) Status WBC, Total 08/26/2023 05:55:00 10.65 4.00-10.8 0 (K/uL) Final RBC 08/26/2023 05:55:00 2.97 3.85-5.15 (M/uL) Final Hemoglobin 08/26/2023 05:55:00 7.7 Below low normal 12 .0-15.3 (g/dL) Final HCT 08/26/2023 05:55:00 27.3 Below low normal 36. 0-45.2 (%) Final MCV 08/26/2023 05:55:00 91.9 81.5-97.5 (fL) Final MCH 08/26/2023 05:55:00 25.9 27.0-34.0 (pg) Final MCHC 08/26/2023 05:55:00 28.2 32.0-36.0 (g/dL) Final RDW 08/26/2023 05:55:00 18.0 11.5-15.5 (%) Final Platelets 08/26/2023 05:55:00 502 Above high normal 14 0-400 (K/uL) Final MPV 08/26/2023 05:55:00 8.7 6.6-11.1 ( fL) Final Performing Location LAB[facility]ATORY [place] [address]
--- OUTSIDE RECORDS SUMMARY | 2023-11-16 19:27 | External Medical Summary | Summary of Care ---
Author Name Unknown Organization [facility] Address [address] [facility] [address] Phone [phone] Care Team Providers Care Management Scientist Name Role Phone Roger Alexandra MD Primary Care Provider [phone] [phone] Reason for Visit * Reason Comments Status Check Encounter Details Date Type Department Care Team Description 08/26/2023 Anticoagulation Pharmacy Call Center [address] [place] [address] [facility] [address] [facility] [address] Cerebrovascular disease, arteriosclerotic, post-stroke* Allergies Active Allergy [...] BEDTIME 60 Capsule 5 04/05/2023 Active Nystatin 432064 UNIT/GM External Powder (Nyamyc) apply to affected [...] 11 07/07/2023 Active Vitamin D3 1.25 MG (54566 UT) Oral Capsule Take 1 Capsule by [...] as of this encounter Progress Notes * FABIENNE Cornejo - 08/26/2023 10:44 AM EDT Telepharm AntiCoag [facility] Follow Up Kimberly Goode [facility] - [phone] Called Facility spoke to Other Fabienne Cabrales . Confirmed patient remains admitted to facility at this time, coumadin is managed in house by facility provider. No Discharge plans in place at this time,ACC will continue to follow up for discharge. Follow up scheduled in 1 week.. Additional Information Provided by facility: Thank you, Narcisa Nagy Stamping Bench Die Maker [facility] ([facility]) (Formerly Telepharmacy) 08/26/2023, 10:47 AM documented in this encounter Plan of Treatment Upcoming Encounters Date Type Specialty Care Team Description 09/02/2023 Anticoagulation Pharmacy [facility], [facility] [address] [place] [address] 09/20/2023 Telemedicine Psychiatry Hugo Alcantara MD [address] [place] [address] 01/07/2024 Office Visit Cardiology Saray Mhuammad CRNP [address] [place] [address] Scheduled Procedures Name Priority Associated Diagnoses Date/Ti [...] 02/16/2022 LUNG CANCER SCREENING - USE SMARTSET 21528 Completed 2023, 03/16/2022, 08/24/2018, Additional history exists [...] atherosclerosis documented in this encounter Advance Directives Healthcare Agents on File Name Relationship Healthcare Agent Relationshi p Communication Laura Gant Adult [facility] Health C2 Tactical Analysis Technician resentative (appointed verbally by patient or by statute hierarchy) Darlene [facility] Health C2 Tactical Analysis Technician resentative (appointed verbally by patient or by statute hierarchy) Care Teams Management Scientist Relationship Specialty Start Date End Date Roger Alexandra MD [address] [place] [address] PCP - General Family Medicine 12/29/19 documented as of this encounter
--- OUTSIDE RECORDS SUMMARY | 2023-11-16 19:27 | External Medical Summary | Summary of Care ---
Author Name Unknown Organization [facility] Address [address] [place] [address] Phone [phone] Care Team Providers Care Sheet Metal Mechanic Name Role Phone Roger Alexandra MD Primary Care Provider [phone] [phone] Reason for Visit * Reason Comments eRx-Medication Refill Encounter Details Date Type Department Care Team Description 08/20/2023 Refill Urology, [facility] [address] [place] [address] Juan José Walters MD 27 [facility] [address] [place] [address] Allergies Active Allergy Reactions Severity Noted Date Comments Aspirin Unknown 12/12/2007 von Willebrand's disease Salicylates 03/01/2000 von Willebrand's disease documented as of this encounter (statuses as of 08/24/2023) Medications Medication Sig Dispensed Refills Start Date End Date Status oxygen IN GASIndications: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 30 Tablet 1 08/24/2023 Active Solifenacin Succinate 10 MG Oral Tablet [...] Note - Juan José Walters MD - 08/24/2023 12:26 PM EDTAddended by: JUAN JOSÉ WALTERS on: 08/24/2023 12:26 PM Modules accepted: Orders * Telephone Encounter - RUFINA Holland - 08/24/2023 9:19 AM EDTRefused Prescriptions: Disp Refills Solifenacin Succinate 10 MG Oral Tablet (V*30 Tab*6 Sig: take 1tablet by mouth every morningRefused By: JUAN JOSÉ WALTERSRejoao for Refusal: Appt. Required, please call patient * Telephone Encounter - RUFINA Holland - 08/24/2023 9:19 AM EDT Spoke with patient and she stated that she is currently admitted at hospital. She stated that she will call to reschedule once she is discharged. * Telephone Encounter - Juan José Walters MD - 08/23/2023 3:27 PM EDT Overdue for follow-up, needs visit. Thanks, HM * Telephone Encounter - Tracey Cabrera LPN - 08/20/2023 1:18 PM EDT Pending Prescriptions: Disp Refills Solifenacin Succinate 10 MG Oral Tablet [P*30 Tab*6 Sig: take 1 tablet by mouth every morning * Telephone Encounter - Tracey Cabrera LPN - 08/20/2023 1:[address] Walters: Refill of Solifenacin requested please Last appt: 05/22/2014 (in office), 01/26/2023 (telemedicine) Next appt: Visit date not found Review of patient's allergies indicates: Allergen Reactions Aspirin Unknown von Willebrand's disease Salicylates von Willebrand's disease Thank you Ammy. Lucien: Pt no showed last visit. Please contact patient to schedule in person appointment for future refills. Thank you Ammy documented in this encounter Plan of Treatment Upcoming Encounters Date Type Specialty Care Team Description 08/25/2023 Anticoagulation Pharmacy [facility] [address] [place] [address] 09/20/2023 Telemedicine Psychiatry Hugo Alcantara MD [address] [place] [address] 01/07/2024 Office Visit Cardiology Saray Muhammad CRNP [address] [place] [address] Scheduled Procedures Name Priority Associated Diagnoses Date/Ti [...] 02/16/2022 LUNG CANCER SCREENING - USE SMARTSET 11865 Completed 2023, 03/16/2022, 08/24/2018, Additional history exists [...] Healthcare Agent Relationshi p Communication Laura Gant [facility] Rep resentative (appointed verbally by patient or by statute hierarchy) Darlene Gilbert [facility] Rep resentative (appointed verbally by patient or by statute hierarchy) Care Teams Sheet Metal Mechanic Relationship Specialty Start Date End Date Roger Alexandra MD [address] [place] [address] PCP - General Family Medicine 12/29/19 documented as of this encounter
--- OUTSIDE RECORDS SUMMARY | 2023-11-16 19:27 | External Medical Summary | Summary of Care ---
Author Name Unknown Organization [facility] Address [address] [facility] [address] Phone [phone] Care Team Providers Care Senior Bi Developer Name Role Phone Roger Alexandra MD Primary Care Provider +1 [phone] Reason for Visit * Reason Comments Dosage Adjustment Via Phone (anticoag Cl inic) Encounter Details Date Type Department Care Team Description 08/25/2023 Anticoagulation Pharmacy Call Center [address] [facility] [place] [address] [facility] [address] [place] [address] Anticoagulation management encounter* Allergies Active Allergy Reactions Severity Noted Date Comments Aspirin Unknown 12/12/2007 von Willebrand's disease Salicylates 03/01/2000 von Willebrand's disease documented as of this encounter (statuses as of 08/25/2023) Medications Medication Sig Dispensed Refills Start Date [...] BEDTIME 60 Capsule 5 04/05/2023 Active Nystatin 246761 UNIT/GM External Powder (Nyamyc) apply to affected [...] 11 07/07/2023 Active Vitamin D3 1.25 MG (53295 UT) Oral Capsule Take 1 Capsule by [...] as of this encounter (statuses as of 08/25/2023) Active Problems Problem Noted Date Prediabetes 07/13/2023 [...] as of this encounter (statuses as of 08/25/2023) Resolved Problems Problem Noted Date Resolved Date [...] as of this encounter (statuses as of 08/25/2023) Immunizations Name Administration Dates Next Due H1N1 [...] Progress Notes * Kim Mercado RPh - 08/25/2023 10:50 AM EDT Pt remains admitted to [facility]. Plan is discharge to [facility] later today. [facility] manages [place]. [facility] will follow up to confirm pt admitted to [facility]. Kim Mercado Rph, Pharm.D. Clinical Pharmacist [facility] ([facility]PS) (formerly Telepharmacy) [phone] 08/25/2023,10:51 AM documented in this encounter Plan of Treatment Upcoming Encounters Date Type Specialty Care Team Description 09/20/2023 Telemedicine Psychiatry Hugo Alcantara MD [address] [facility] [place] [address] 01/07/2024 Office Visit Cardiology Saray Muhammad CRNP [address] [place] [address] Scheduled Procedures Name Priority Associated Diagnoses Date/Ti [...] 02/16/2022 LUNG CANCER SCREENING - USE SMARTSET [id number] Completed 2023, 03/16/2022, 08/24/2018, Additional history exists [...] Gant Adult [facility] Health Informatica Architect resentative (appointed verbally by patient or by statute hierarchy) Darlene Gilbert Adult [facility] Health Informatica Architect resentative (appointed verbally by patient or by statute hierarchy) Care Teams Senior Bi Developer Relationship Specialty Start Date End Date Roger Alexandra MD [address] [place] [address] PCP - General Family Medicine 12/29/19 documented as of this encounter
--- OUTSIDE RECORDS SUMMARY | 2023-11-16 19:27 | External Medical Summary | Summary of Care ---
Author Name Unknown Organization [facility] Address [address] [place] [address] Phone [phone] Care Team Providers Care Barrel Dedenting Machine Operator Name Role Phone Roger Alexandra MD Primary Care Provider [phone] [phone] Reason for Visit * Reason Comments eRx-Medication Refill Encounter Details Date Type Department Care Team Description 08/20/2023 Refill Urology, [facility] [address] [place] [address] Juan José Walters MD [address] [facility] [address] [place] [address] Allergies [...] BEDTIME 60 Capsule 5 04/05/2023 Active Nystatin 994545 UNIT/GM External Powder (Nyamyc) apply to affected [...] 11 07/07/2023 Active Vitamin D3 1.25 MG (85352 UT) Oral Capsule Take 1 Capsule by [...] for Anxiety. 90 Tablet 0 08/05/2023 Active Hospital, Clinic, or Other Facility Administered [...] by mouth every morningRefused By: JUAN JOSÉ WALTERS for Refusal: Appt. Required, please call patient * Telephone Encounter - RUFINA Holland - 08/24/2023 9:19 AM EDT Spoke with patient and she stated that she is currently admitted at hospital. She stated that she will call to reschedule once she is discharged. * Telephone Encounter - Juan José Walters MD - 08/23/2023 3:27 PM EDT Overdue for follow-up, needs visit. Orlin, HM * Telephone Encounter - Tracey Cabrera LPN - 08/20/2023 1:18 PM EDTPending Prescriptions: Disp Refills Solifenacin Succinate 10 MG [...] Specialty Care Team Description 08/25/2023 Anticoagulation Pharmacy [facility] [address] [place] [address] 09/20/2023 Telemedicine Psychiatry Hugo Alcantara MD [address] [place] [address] 01/07/2024 Office Visit Cardiology Saray Muhammad CRNP [address] [place] [address] Scheduled Procedures Name Priority Associated Diagnoses Date/Ti [...] 02/16/2022 LUNG CANCER SCREENING - USE SMARTSET [id number] Completed 2023, 03/16/2022, 08/24/2018, Additional history exists [...] Agent Relationshi p Communication Laura Gant Adult [facility] Health Target Aircraft Controller resentative (appointed verbally by patient or by statute hierarchy) [facility] Rep resentative (appointed verbally by patient or by statute hierarchy) Care Teams Barrel Dedenting Machine Operator Relationship Specialty Start Date End Date Roger Alexandra MD [address] [place] [address] PCP - General Family Medicine 12/29/19 documented as of this encounter
--- OUTSIDE RECORDS SUMMARY | 2023-11-16 19:28 | External Medical Summary | Summary of Care ---
Author Name Unknown Organization [facility] Address [address] [facility] [address] Phone [phone] Care Team Providers Care Naphtha Washing System Operator Name Role Phone Roger Alexandra MD Primary Care Provider +1 -[phone] Reason for Visit * Reason Comments Dosage Adjustment Via Phone (anticoag Cl inic) Encounter Details Date Type Department Care Team Description 08/20/2023 Anticoagulation Pharmacy Call Center [address] [place] [address] [facility] [address] [facility] [place] [address] Anticoagulation management encounter* Allergies Active Allergy Reactions Severity Noted Date Comments Aspirin Unknown 12/12/2007 von Willebrand's disease Salicylates 03/01/2000 von Willebrand's disease documented as of this encounter (statuses as of 08/20/2023) Medications Medication Sig Dispensed Refills Start Date [...] PD, group D, by GOLD 2017 classification ([facility]),Chronic hypoxemic respiratory failure ([facility]) Use with nebulized meds 1 Each 0 09/16/2022 Active Full Kit Nebulizer SetIndications:COPD, group D, by GOLD 2017 classification ([place] [...] BEDTIME 60 Capsule 5 04/05/2023 Active Nystatin 590961 UNIT/GM External Powder (Nyamyc) apply to affected [...] 11 07/07/2023 Active Vitamin D3 1.25 MG (56664 UT) Oral Capsule Take 1 Capsule by [...] as of this encounter (statuses as of 08/20/2023) Active Problems Problem Noted Date Prediabetes 07/13/2023 [...] as of this encounter (statuses as of 08/20/2023) Resolved Problems Problem Noted Date Resolved Date [...] as of this encounter (statuses as of 08/20/2023) Immunizations Name Administration Dates Next Due H1N1 [...] Progress Notes * Kim Mercado RPh - 08/20/2023 1:18 PM EDT Pt remains admitted to [facility]. [facility] will follow up at discharge. Kim Mercado Rph, Pharm.D. Clinical Pharmacist [facility] Pharmacy Services (CCPS) (formerly Telepharmacy) [phone] 08/20/2023,1:28 PM documented in this encounter Plan of Treatment Upcoming Encounters Date Type Specialty Care Team Description 08/23/2023 [facility] [address] 60 [facility] [place] [place] [address] 09/20/2023 Telemedicine Psychiatry Hugo Alcantara MD [address] [place] [address] 01/07/2024 Office Visit Cardiology Saray Muhammad CRNP [address] [facility] [place] [address] Scheduled Procedures Name Priority Associated Diagnoses Date/Ti [...] 02/16/2022 LUNG CANCER SCREENING - USE SMARTSET 65324 Completed 2023, 03/16/2022, 08/24/2018, Additional history exists [...] patient or by statute hierarchy) Care Teams Naphtha Washing System Operator Relationship Specialty Start Date End Date Roger Alexandra MD [address] [place] [address] PCP - General Family Medicine 12/29/19 documented as of this encounter
--- OUTSIDE RECORDS SUMMARY | 2023-11-16 19:28 | External Medical Summary | Summary of Care ---
Author Name Unknown Organization [facility] Address [address] [facility] [address] Phone [phone] Care Team Providers Care Title I Math Tutor Name Role Phone Roger Alexandra MD Primary Care Provider +1 [phone] Reason for Visit * Reason Onset Date Comments Appointment 08/13/2023 Encounter Details Date Type Department Care Team Description 08/13/2023 Telephone Gastroenterology, [facility] [address] [place] [address] Chrissie Barber CRNP [address] [place] [address] Appointment Allergies Active Allergy Reactions Severity Noted Date Comments Aspirin Unknown 12/12/2007 von Willebrand's disease Salicylates 03/01/2000 von Willebrand's disease documented as of this encounter (statuses as of 08/17/2023) Medications Medication Sig Dispensed Refills Start Date [...] BEDTIME 60 Capsule 5 04/05/2023 Active Nystatin 122708 UNIT/GM External Powder (Nyamyc) apply to affected [...] 11 07/07/2023 Active Vitamin D3 1.25 MG (79801 UT) Oral Capsule Take 1 Capsule by [...] as of this encounter (statuses as of 08/17/2023) Active Problems Problem Noted Date Prediabetes 07/13/2023 [...] as of this encounter (statuses as of 08/17/2023) Resolved Problems Problem Noted Date Resolved Date [...] as of this encounter (statuses as of 08/17/2023) Immunizations Name Administration Dates Next Due H1N1 [...] OP EUS. She is currently admitted at [facility] for anemia COY Thornton documented in this encounter Plan of Treatment Upcoming Encounters Date Type Specialty Care Team Description 08/18/2023 Laboratory Laboratory Processing [facility], [facility] Mobile Home Draw [address] [place] [address] 08/19/2023 [facility] [address] [place] [address] 09/20/2023 Telemedicine Psychiatry Hugo Alcantara MD [address] [place] [address] 01/07/2024 Office Visit Cardiology Saray Muhammad CRNP [address] [place] [address] Scheduled Orders Name Type Priority Associated Diagnoses [...] 02/16/2022 LUNG CANCER SCREENING - USE SMARTSET [id number] Completed 2023, 03/16/2022, 08/24/2018, Additional history exists [...] Healthcare Agent Relationshi p Communication Laura Gant [facility] Emergency Department Rep resentative (appointed verbally by patient or by statute hierarchy) Darlene Gilbert [facility] Emergency Department Rep resentative (appointed verbally by patient or by statute hierarchy) Care Teams Title I Math Tutor Relationship Specialty Start Date End Date Roger Alexandra MD [address] [place] [address] PCP - General Family Medicine 12/29/19 documented as of this encounter
--- OUTSIDE RECORDS SUMMARY | 2023-11-16 19:28 | External Medical Summary | Summary of Care ---
Author Name Unknown Organization [facility] Address [address] [facility] [address] Phone [phone] Care Team Providers Care Material Handling Crew Supervisor Name Role Phone Roger Alexandra MD Primary Care Provider +1 [phone] Reason for Visit * Reason Comments Dosage Adjustment Via Phone (anticoag Cl inic) Encounter Details Date Type Department Care Team Description 08/23/2023 Anticoagulation Pharmacy Call Center [address] [place] [address] [facility] [address] [facility] [place] [address] Anticoagulation management encounter* Allergies Active Allergy Reactions Severity Noted Date Comments Aspirin Unknown 12/12/2007 von Willebrand's disease Salicylates 03/01/2000 von Willebrand's disease documented as of this encounter (statuses as of 08/23/2023) Medications Medication Sig Dispensed Refills Start Date [...] BEDTIME 60 Capsule 5 04/05/2023 Active Nystatin 725623 UNIT/GM External Powder (Nyamyc) apply to affected [...] 11 07/07/2023 Active Vitamin D3 1.25 MG (98120 UT) Oral Capsule Take 1 Capsule by [...] as of this encounter (statuses as of 08/23/2023) Active Problems Problem Noted Date Prediabetes 07/13/2023 [...] as of this encounter (statuses as of 08/23/2023) Resolved Problems Problem Noted Date Resolved Date [...] as of this encounter (statuses as of 08/23/2023) Immunizations Name Administration Dates Next Due H1N1 [...] Progress Notes * Kim Mercado RPh - 08/23/2023 11:23 AM EDT Pt remains admitted to [facility]. Per notes, pt now on Eliquis. [facility] will follow up at discharge to confirm Eliquis affordable. Kim Mercado Rph, Pharm.D. Clinical Pharmacist [facility] ([facility]PS) (formerly Telepharmacy) [phone] 08/23/2023,11:25 AM documented in this encounter Plan of Treatment Upcoming Encounters Date Type Specialty Care Team Description 09/20/2023 Telemedicine Psychiatry Hugo Alcantara MD [address] [facility] [place] [address] 01/07/2024 Office Visit Cardiology Saray Muhammad CRNP [address] [facility] [address] Scheduled Procedures Name Priority Associated Diagnoses Date/Ti [...] 02/16/2022 LUNG CANCER SCREENING - USE SMARTSET [id number] Completed 2023, 03/16/2022, 08/24/2018, Additional history exists [...] Agent Relationshi p Communication Laura Gant [facility] Nurse Coordinator resentative (appointed verbally by patient or by statute hierarchy) Darlene Gilbert [facility] Nurse Coordinator resentative (appointed verbally by patient or by statute hierarchy) Care Teams Material Handling Crew Supervisor Relationship Specialty Start Date End Date Roegr Alexandra MD [address] [place] [address] PCP - General Family Medicine 12/29/19 documented as of this encounter
--- OUTSIDE RECORDS SUMMARY | 2023-11-16 19:28 | External Medical Summary | Summary of Care ---
Author Name Unknown Organization [facility] Address [address] [facility] [address] Phone [phone] Care Team Providers Care Medical Assisting Program Director Name Role Phone Roger Alexandra MD Primary Care Provider [phone] [phone] Reason for Visit * Reason Onset Date Comments Fax 07/05/2023 Encounter Details Date Type Department Care Team Description 07/05/2023 Telephone Family Practice [facility] [address] [place] [address] Roger Alexandra MD [address] [place] [address] Fax Allergies Active Allergy Reactions Severity Noted Date Comments Aspirin Unknown 12/12/2007 von Willebrand's disease Salicylates 03/01/2000 von Willebrand's disease documented as of this encounter (statuses as of 08/18/2023) Medications Medication Sig Dispensed Refills Start Date [...] Each 0 2 Active Full Kit Nebulizer SetIndications: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 540 mL 12 2 Active Solifenacin Succinate 10 MG Oral Tablet [...] BEDTIME 60 Capsule 5 3 Active Nystatin 721551 UNIT/GM External Powder (Nyamyc) apply to affected area twice a day 60 g 1 3 Active Warfarin Sodium 5 MG Oral [...] before bedtime. 180 Tablet 3 3 Active ProAir HFA 108 (90 Base) MCG/ACT Inhalation Aerosol SolutionIndication s:Bronchitis, complicated Inhale 2 Puffs by mouth in the morning and 2 Puffs at noon and 2 Puffs in the evening and 2 Puffs before bedtime. 18 g 1 2 023 Discontinued(Re fill) Ferrous Sulfate 325 (65 Fe) MG Oral Tablet (Feosol) 1 Tablet. 0 3 023 Discontinued(Il dication List Clean Up) Cefuroxime Axetil 500 MG Oral Tablet (Ceftin) Take 1 Tablet by mouth in the morning and 1 Tablet before bedtime. 14 Tablet 0 3 023 Discontinued LORazepam 0.5 [...] as of this encounter (statuses as of 08/18/2023) Active Problems Problem Noted Date Prediabetes 07/13/2023 [...] as of this encounter (statuses as of 08/18/2023) Resolved Problems Problem Noted Date Resolved Date [...] as of this encounter (statuses as of 08/18/2023) Immunizations Name Administration Dates Next Due H1N1 [...] Telephone Encounter - Nissa Richter LPN - 07/16/2023 3:47 PM EDT Faxed signed verbal order * Telephone Encounter - Roger Alexandra MD - 07/14/2023 8:20 AM EDT I don't recall seeing this and it's not in my bin. * Telephone Encounter - Kim De Guzman LPN - 07/14/2023 7:43 AM EDT Did you get this, please check your desk and bin. * Telephone Encounter - RUFINA Mckinney - 07/08/2023 12:16 PM EDT Received a call asking if fax was received by office. Name/Company sending fax: [employer] What fax is pertaining to: DME order Date(s) they sent request: 06/29/23, 07/03/23 Verified fax number they are sending to is correct (Y or N): Gave them correct fax number Callback Number for the clinic to call to verified if fax was received: [phone] * Telephone Encounter - RUFINA Alcantar - 07/05/2023 3:19 PM EDT Received a call asking if fax was received by office. Name/Company sending fax: Juana from [employer] What fax is pertaining to: DME orders Date(s) they sent request: 06/29/2023 Verified fax number they are sending to is correct (Y or N): YES Callback Number for the clinic to call to verified if fax was received: [phone] They will re-fax scripts they had incorrect fax number documented in this encounter Plan of Treatment Upcoming Encounters Date Type Specialty Care Team Description 08/18/2023 Laboratory Laboratory Processing [facility], [facility] Mobile Home Draw [address] [place] [address] Arrived 08/19/2023 [facility] [address] [address] [place] [address] 09/20/2023 Telemedicine Psychiatry Hugo Alcantara MD [address] [place] [address] 01/07/2024 Office Visit Cardiology Saray Muhammad CRNP [address] [place] [address] Scheduled Procedures Name Priority Associated Diagnoses Date/Ti [...] 02/16/2022 LUNG CANCER SCREENING - USE SMARTSET [id number] Completed 2023, 03/16/2022, 08/24/2018, Additional history exists [...] Name Relationship Healthcare Agent Relationshi p Communication Luara Gant [facility] Health Housekeeping Staff resentative (appointed verbally by patient or by statute hierarchy) Darlene Gilbert [facility] Health Housekeeping Staff resentative (appointed verbally by patient or by statute hierarchy) Care Teams Medical Assisting Program Director Relationship Specialty Start Date End Date Roger Alexandra MD [address] [place] [address] PCP - General Family Medicine 12/29/19 documented as of this encounter
--- OUTSIDE RECORDS SUMMARY | 2023-11-16 19:28 | External Medical Summary | Continuity of Care Document ---
Author Name Unknown Organization [facility] [address] Address [address] [place], [place] [id number] Care Team Providers Care Client Executive Name Role Phone Owen Hermosillo Primary Care Physician [phone] Encounter [facility] [id number] Date(s): 08/17/23 - 08/17/23 [facility] [address] [place], [place] [id number] Discharge Disposition: Home or Self Care Attending Physician: DO Murguia Grant W Referring Physician: MD Singh Andrea Social History Social History Type Response Sex Female Patient Care team information Care Team Personnel Name: DO Hermosillo Scott A Position: Referring DIRECT Member Role: Primary Care Provider Address: Address: [address] [place] [address] [place] Care Team Related Persons Name: KEITH MCKEON Address: home [address] [place] [id number]
--- OUTSIDE RECORDS SUMMARY | 2023-11-16 19:28 | External Medical Summary | Summary of Care ---
Author Name Unknown Organization [facility] Address [address] [facility] [address] Phone [phone] Care Team Providers Care Refrigeration Operator Name Role Phone Roger Alexandra MD Primary Care Provider +1 [phone] Reason for Visit * Reason Comments Dosage Adjustment Via Phone (anticoag Cl inic) Encounter Details Date Type Department Care Team Description 08/19/2023 Anticoagulation Pharmacy Call Center [address] [place] [address] [facility] [address] [facility] [place] [address] Cerebrovascular disease, arteriosclerotic, post-stroke* Allergies Active Allergy Reactions Severity Noted Date Comments Aspirin Unknown 12/12/2007 von Willebrand's disease Salicylates 03/01/2000 von Willebrand's disease documented as of this encounter (statuses as of 08/19/2023) Medications Medication Sig Dispensed Refills Start Date [...] BEDTIME 60 Capsule 5 04/05/2023 Active Nystatin 994767 UNIT/GM External Powder (Nyamyc) apply to affected [...] 11 07/07/2023 Active Vitamin D3 1.25 MG (99881 UT) Oral Capsule Take 1 Capsule by [...] as of this encounter (statuses as of 08/19/2023) Active Problems Problem Noted Date Prediabetes 07/13/2023 [...] as of this encounter (statuses as of 08/19/2023) Resolved Problems Problem Noted Date Resolved Date [...] as of this encounter (statuses as of 08/19/2023) Immunizations Name Administration Dates Next Due H1N1 [...] Progress Notes * Kim Mercado RPh - 08/19/2023 9:31 AM EDT Noted, [facility] will follow up at discharge. Kim Mercado Rph, Pharm.D. Clinical Pharmacist [facility] ([facility]PS) (formerly Telepharmacy) [phone] 08/19/2023,9:31 AM * DANIEL Solares Tech - 08/19/2023 7:38 AM EDT Pt is currently admitted [facility] ICU. Please advise. Thank you, Xenia Sheppard Lens Examiner [facility] Pharmacy Services (CCPS) (formerly Telepharmacy) [phone] 08/19/2023,7:42 AM documented in this encounter Plan of Treatment Upcoming Encounters Date Type Specialty Care Team Description 09/20/2023 Telemedicine Psychiatry [facility]ara [facility] [address] [facility] [address] 01/07/2024 Office Visit Cardiology Saray Muhammad CRNP [address] [place] [address] Scheduled Procedures Name Priority Associated Diagnoses Date/Ti [...] 02/16/2022 LUNG CANCER SCREENING - USE SMARTSET 37561 Completed 2023, 03/16/2022, 08/24/2018, Additional history exists [...] Agent Relationshi p Communication [facility] Harpsichord Maker resentative (appointed verbally by patient or by statute hierarchy) Darlene Gilbert Adult [facility] Health Harpsichord Maker resentative (appointed verbally by patient or by statute hierarchy) Care Teams Refrigeration Operator Relationship Specialty Start Date End Date Roger Alexandra MD [address] [place] [address] PCP - General Family Medicine 12/29/19 documented as of this encounter
--- OUTSIDE RECORDS SUMMARY | 2023-11-16 19:29 | External Medical Summary | Summary of Care ---
Author Name Unknown Organization [facility] Address [address] [facility] [address] Phone [phone] Care Team Providers Care Project Facilitator Name Role Phone Roger Alexandra MD Primary Care Provider [phone] [phone] Reason for Visit * Reason Onset Date Comments Other 08/10/2023 Encounter Details Date Type Department Care Team Description 08/10/2023 Telephone Pharmacy Call Center [address] [place] [address] [facility] [address] [facility] [address] Other Allergies Active Allergy Reactions Severity Noted Date Comments Aspirin Unknown 12/12/2007 von Willebrand's disease Salicylates 03/01/2000 von Willebrand's disease documented as of this encounter (statuses as of 08/10/2023) Medications Medication Sig Dispensed Refills Start Date [...] BEDTIME 60 Capsule 5 04/05/2023 Active Nystatin 160559 UNIT/GM External Powder (Nyamyc) apply to affected [...] failure) ([facility]) Take 1 Tablet by mouth in the [...] 11 07/07/2023 Active Vitamin D3 1.25 MG (33530 UT) Oral Capsule Take 1 Capsule by [...] as of this encounter (statuses as of 08/10/2023) Active Problems Problem Noted Date Prediabetes 07/13/2023 [...] as of this encounter (statuses as of 08/10/2023) Resolved Problems Problem Noted Date Resolved Date [...] as of this encounter (statuses as of 08/10/2023) Immunizations Name Administration Dates Next Due H1N1 [...] Miscellaneous Notes * Telephone Encounter - DANIEL Sawyer - 08/10/2023 11:35 AM EDT Tamar from lab calling with inr in [employer] documented in this encounter Plan of Treatment Upcoming Encounters Date Type Specialty Care Team Description 08/10/2023 [facility] [address] [place] [address] Anticoagulation management encounter* 08/16/2023 [facility]medicine [facility] Sharmaine Johns PA-Roz [address] [place] [address] Kim Carrizales, Community Health Transformation Manager [address] [place] [address] 09/20/2023 Telemedicine Psychiatry Hugo Alcantara MD [address] [place] [address] 01/07/2024 Office Visit Cardiology Saray Muhammad CRNP [address] [place] [address] Scheduled Procedures Name Priority Associated Diagnoses Date/Ti [...] 02/16/2022 LUNG CANCER SCREENING - USE SMARTSET 29[address] Completed 2023, 03/16/2022, 08/24/2018, Additional history exists [...] Name Relationship Healthcare Agent Relationshi p Communication [facility] Rep resentative (appointed verbally by patient or by statute hierarchy) Darlene Gilbert Adult [facility] Grinder Needle Tip resentative (appointed verbally by patient or by statute hierarchy) Care Teams Project Facilitator Relationship Specialty Start Date End Date Roger Alexandra MD [address] [place] [address] PCP - General Family Medicine 12/29/19 documented as of this encounter
--- OUTSIDE RECORDS SUMMARY | 2023-11-16 19:29 | External Medical Summary ---
Author Name Unknown Address Unknown Organization K0G[facility] [address] [place] [address] Laboratory Report Ordering Provider Test Date Status SUMAN STANFORD 08/11/2023 10:26:00 Final Standing order for pt/inr. < br/>Please draw pt/inr every 1 to 4 weeks as requested
Results to [facility]

Warfarin Therapy
INR: 2.0-3.0 conventional anticoagulation
INR: 2.5-3.5 high intensity anticoagulation Observation Date Value Abnormality Reference (Units ) Status PT 08/11/2023 10:26:00 41.5 Above high normal 11 .6-15.2 (seconds) Final INR 08/11/2023 10:26:00 4.3 Above high normal 0. 8-1.2 Final Performing Location [facility] [address] [place] [address]
--- OUTSIDE RECORDS SUMMARY | 2023-11-16 19:29 | External Medical Summary | Summary of Care ---
Author Name Unknown Organization [facility] Address [address] [facility] [address] Phone [phone] Care Team Providers Care Government Instructor Name Role Phone Roger Alexandra MD Primary Care Provider +1 [phone] Reason for Visit * Reason Comments Dosage Adjustment Via Phone (anticoag Cl inic) Encounter Details Date Type Department Care Team Description 08/11/2023 Anticoagulation Pharmacy Call Center [address] [place] [address] [facility] [address] [facility] [place] [address] Cerebrovascular disease, arteriosclerotic, post-stroke* Allergies Active Allergy Reactions Severity Noted Date Comments Aspirin Unknown 12/12/2007 von Willebrand's disease Salicylates 03/01/2000 von Willebrand's disease documented as of this encounter (statuses as of 08/11/2023) Medications Medication Sig Dispensed Refills Start Date [...] BEDTIME 60 Capsule 5 04/05/2023 Active Nystatin 551714 UNIT/GM External Powder (Nyamyc) apply to affected [...] 11 07/07/2023 Active Vitamin D3 1.25 MG (84379 UT) Oral Capsule Take 1 Capsule by [...] as of this encounter (statuses as of 08/11/2023) Active Problems Problem Noted Date Prediabetes 07/13/2023 [...] as of this encounter (statuses as of 08/11/2023) Resolved Problems Problem Noted Date Resolved Date [...] as of this encounter (statuses as of 08/11/2023) Immunizations Name Administration Dates Next Due H1N1 [...] of this encounter Progress Notes * DANIEL Marcos - 08/11/2023 2:49 PM EDT Contacts Type Contact Phone/Fax 08/11/2023 02:28 PM EDT Phone (Outgoing) Kimberly Kendall (Self) [phone] (M) Subjective Patient Findings Negatives: Signs/symptoms of thrombosis, [...] communicated as noted by Pharmacist: Yes DANIEL MARCOS 08/11/2023, 2:49 PM * Kim Mercado [facility] - 08/11/2023 1:36 PM EDT Images from the original note were not included. Coumadin Clinic (region specific) Objective Current Warfarin Dose As of 08/11/2023 Warfarin maintenance plan: 2.5 mg (5 mg x 0.5) every Mon, Wed, Fri; 5 mg (5 mg x 1) all other days (held since 08/09 for high INR) INR Result As of 08/11/2023 INR goal: 2.0-3.0 INR used for dosin.3 (08/11/2023) Assessment & Plan Warfarin Plan As of 08/11/2023 Full warfarin instructions: 08/11: Hold; 08/12: Hold; Otherwise 5 mg every Wed, e, Christiana; 2.5 mg all other days Next INR check: 08/18/2023 Pt can stop drinking Boost today. Repeat PT/INR in 1 week(s) Weekly dose: decreased Additional Dosing Information: Description [facility] Also sent MyG after trying to call Tech to contact patient with dose instructions as noted. Kim Mercado RPh 08/11/2023, 1:38 PM documented in this encounter Plan of Treatment Upcoming Encounters Date Type Specialty Care Team Description 08/16/2023 Telemedicine [facility] Sharmaine Johns PA-C [address] [place] [address] Kim Carrizales Community Health Bad Credit Collector [address] [place] [address] 08/18/2023 Laboratory Laboratory Processing [facility] Mobile Home Draw [address] [place] [address] 08/19/2023 Anticoagulation Pharmacy [facility] [address] [place] [address] 09/20/2023 Telemedicine Psychiatry Hugo Alcantara MD [address] [place] [address] 01/07/2024 Office Visit Cardiology Saray Muhammad CRNP [address] [place] [address] Scheduled Procedures Name Priority Associated Diagnoses Date/Ti [...] 02/16/2022 LUNG CANCER SCREENING - USE SMARTSET 50791 Completed 2023, 03/16/2022, 08/24/2018, Additional history exists [...] Relationship Healthcare Agent Relationshi p Communication Laura [place] [facility] Allergy Physician resentative (appointed verbally by patient or by statute hierarchy) Darlene Gilbert Adult [facility] Allergy Physician resentative (appointed verbally by patient or by statute hierarchy) Care Teams Government Instructor Relationship Specialty Start Date End Date Roger Alexandra MD [address] [place] [address] PCP - General Family Medicine 12/29/19 documented as of this encounter
--- OUTSIDE RECORDS SUMMARY | 2023-11-16 19:29 | External Medical Summary | Summary of Care ---
Author Name Unknown Organization [facility] Address [address] [facility] [address] Phone [phone] Care Team Providers Care Hot Mix Operator Name Role Phone Roger Alexandra MD Primary Care Provider +1 -[phone] Reason for Visit * Reason Comments Dosage Adjustment Via Phone (anticoag Cl inic) Encounter Details Date Type Department Care Team Description 08/10/2023 Anticoagulation Pharmacy Call Center [address] [place] [address] [facility] [place] [address] Anticoagulation management encounter* Allergies Active Allergy Reactions [...] BEDTIME 60 Capsule 5 04/05/2023 Active Nystatin 905225 UNIT/GM External Powder (Nyamyc) apply to affected [...] 11 07/07/2023 Active Vitamin D3 1.25 MG (00533 UT) Oral Capsule Take 1 Capsule by [...] by GOLD 2017 classification ([facility]) 2.5 mg NEBULIZER PRN 03/03/2023 03/02/2024 Acti ve Albuterol Sulfate (Proventil) (5 MG/ML) 0.5% *conc* inhalation solution 2.5 mgIndications:COPD, group D, by GOLD 2017 classification ([facility]) 2.5 mg NEBULIZER PRN 03/03/2023 03/02/2024 [...] 02/04/2006 12/21/2008 Atrial septal aneurysm 02/04/2006 9 rodent exterminator current use of anticoagulant therapy 0 [...] Progress Notes * Kim Mercado RPh - 08/10/2023 11:39 AM EDT Images from the original note were not included. Medication Therapy Disease Management - Anticoagulation Patient: Kimberly Kendall | : 1960 Subjective Contacts Type Contact Phone/Fax 08/10/2023 11:46 AM EDT Phone (Outgoing) Kimberly Kendall (Self) [phone] (M) Spoke to Patient Patient-Reported Symptoms: Patient Findings Negatives: Signs/symptoms of thrombosis, Signs/symptoms of bleeding, Change in health, Change in alcohol use, Change in activity, Upcoming invasive procedure, Missed doses, Extra doses, Change in medications, Change in diet/appetite, Bruising Comments: Confirmed pt drank 3 bottles of Boost yesterday. Advised to drink 3 more today. Objective Current Warfarin Dose As of 08/10/2023 Warfarin maintenance plan: No maintenance plan INR Result As of 08/10/2023 INR goal: 2.0-3.0 INR used for dosing: >9.0 (08/10/2023) Assessment & Plan Warfarin Plan As of 08/10/2023 Full warfarin instructions: 08/10: Hold; 08/11: Hold CONTINUE to drink 2-3 Boost per day Next INR check: Repeat PT/INR in 1 day(s) Weekly dose: holding Additional Dosing Information: Description [facility] Also sent MyG after trying to call Kim Mercado RPh Clinical Pharmacist 08/10/2023, 11:39 AM documented in this encounter Plan of Treatment Upcoming Encounters Date Type Specialty Care Team Description 08/16/2023 Telemedicine [facility] Sharmaine Johns PA-C [address] [place] [address] Kim Carrizales, Community Health Temperature Regulator Pyrometer [address] [place] [address] 09/20/2023 Telemedicine Psychiatry Hugo Alcantara MD [address] [place] [address] 01/07/2024 Office Visit Cardiology Saray Muhammad CRNP [address] [place] [address] Scheduled Procedures Name Priority Associated Diagnoses Date/Ti [...] 02/16/2022 LUNG CANCER SCREENING - USE SMARTSET 04000 Completed 2023, 03/16/2022, 08/24/2018, Additional history exists [...] Healthcare Agent Relationshi p Communication Laura Gant [facility] Data Quality Consultant resentative (appointed verbally by patient or by statute hierarchy) Darleneasher Gilbert [facility] Health Data Quality Consultant resentative (appointed verbally by patient or by statute hierarchy) Care Teams Hot Mix Operator Relationship Specialty Start Date End Date Roger Alexandra MD [address] [place] [address] PCP - General Family Medicine 12/29/19 documented as of this encounter"
--- OUTSIDE RECORDS SUMMARY | 2023-11-16 19:29 | External Medical Summary ---
Author Name Unknown Address Unknown Organization K[facility] [address] [place] [address] Laboratory Report Ordering Provider Test Date Status SUMAN STANFORD 08/10/2023 10:30:00 Final Standing order for pt/inr. < br/>Please draw pt/inr every 1 to 4 weeks as requested
Results to [facility]

Warfarin Therapy
INR: 2.0-3.0 conventional anticoagulation
INR: 2.5-3.5 high intensity anticoagulation Observation Date Value Abnormality Reference (Units ) Status PT 08/10/2023 10:30:00 >70.0 Above high normal 11.6-15.2 (seconds) Final INR 08/10/2023 10:30:00 >9.0 Above upper panic limits 0.8-1.2 Final Performing Location [facility] [address] [place] [address]
--- OUTSIDE RECORDS SUMMARY | 2023-11-16 19:29 | External Medical Summary | Summary of Care ---
Author Name Unknown Organization [facility] Address [address] [facility] [place] [address] Phone [phone] Care Team Providers Care Tools Administrator Name Role Phone Roger Alexandra MD Primary Care Provider +1 -[phone] Reason for Visit * Reason Onset Date Comments Order Request 08/11/2023 Encounter Details Date Type Department Care Team Description 08/11/2023 Telephone Family Practice [facility] [address] [place] [address] Roger Alexandra MD [address] [place] [address] Order Request Allergies Active Allergy Reactions Severity Noted Date Comments Aspirin Unknown 12/12/2007 von Willebrand's disease Salicylates 03/01/2000 von Willebrand's disease documented as of this encounter (statuses as of 08/12/2023) Medications Medication Sig Dispensed Refills Start Date [...] BEDTIME 60 Capsule 5 04/05/2023 Active Nystatin 598996 UNIT/GM External Powder (Nyamyc) apply to affected [...] 11 07/07/2023 Active Vitamin D3 1.25 MG (88208 UT) Oral Capsule Take 1 Capsule by [...] as of this encounter (statuses as of 08/12/2023) Active Problems Problem Noted Date Prediabetes 07/13/2023 [...] as of this encounter (statuses as of 08/12/2023) Resolved Problems Problem Noted Date Resolved Date [...] 12/21/2008 Atrial septal aneurysm 02/04/2006 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, it has to be a hospice referral. Hospice referral was placed 07/27/23. Faxed with confirmation received. * Telephone Encounter - Kim De Guzman LPN - 08/11/2023 2:27 PM EDT She has a palliative care ref already placed. Does it specifically need to say hospice? * Telephone Encounter - RUFINA Simons - 08/11/2023 12:49 PM EDT Se calling from [facility] services to request an referral for an evaluation of hospice. An order was requested for this patient. Name of Requesting Provider: Se at [facility] Order Requested: hospice evaluation Diagnosis/Reason for Request: unknown If order request is for Mammogram: Is the patient having any breast symptoms? N/A Is there a chance of ? N/A Has the patient had any breast problems in the past? NA Does the order need to be faxed somewhere? If so, where?: yes, [facility] Fax Number, if applicable: [phone] Call Back Number: [phone] If the caller is not a current [...] [facility] PA-Roz [address] [place] [address] Kim Carrizales, Community Health Hyperion Analyst [address] [place] [address] 08/18/2023 Laboratory Laboratory Processing [facility], [facility] Mobile Home Draw [address] [place] [address] 08/19/2023 [facility] [address] [place] [address] 09/20/2023 Telemedicine Psychiatry Hugo Alcantara MD [address] [place], [place] [address] 01/07/2024 Office Visit Cardiology Saray Muhammad CRNP [address] [place] [address] Scheduled Procedures Name Priority Associated Diagnoses Date/Ti [...] 02/16/2022 LUNG CANCER SCREENING - USE SMARTSET 32933 Completed 2023, 03/16/2022, 08/24/2018, Additional history exists [...] Relationshi p Communication Laura Gant Adult [facility] Health Body Masker resentative (appointed verbally by patient or by statute hierarchy) Darlene Michaelyder Adult [facility] Health Body Masker resentative (appointed verbally by patient or by statute hierarchy) Care Teams Tools Administrator Relationship Specialty Start Date End Date Roger Alexandra MD [address] [place] [address] PCP - General Family Medicine 12/29/19 documented as of this encounter
--- OUTSIDE RECORDS SUMMARY | 2023-11-16 19:29 | External Medical Summary | Summary of Care ---
Author Name Unknown Organization [facility] Address [address] [facility] [address] Phone [phone] Care Team Providers Care Delivery Motorcycle Driver Name Role Phone Roger Alexandra MD Primary Care Provider +1 -[phone] Reason for Visit * Reason Onset Date Comments Appointment 08/13/2023 Encounter Details Date Type Department Care Team Description 08/13/2023 Telephone Gastroenterology, [facility] [address] [place] [address] Chrissie Barber CRNP [address] [place] [address] Appointment Allergies Active Allergy Reactions Severity Noted Date Comments Aspirin Unknown 12/12/2007 von Willebrand's disease Salicylates 03/01/2000 von Willebrand's disease documented as of this encounter (statuses as of 08/13/2023) Medications Medication Sig Dispensed Refills Start Date [...] BEDTIME 60 Capsule 5 04/05/2023 Active Nystatin 845240 UNIT/GM External Powder (Nyamyc) apply to affected [...] 11 07/07/2023 Active Vitamin D3 1.25 MG (27167 UT) Oral Capsule Take 1 Capsule by [...] 2017 classification ([facility]) 2.5 mg NEBULIZER PRN 03/03/2023 03/02/2024 Acti ve Albuterol Sulfate (Proventil) (5 MG/ML) 0.5% *conc* inhalation solution 2.5 mgIndications:COPD, group D, by GOLD 2017 classification ([facility]) 2.5 mg NEBULIZER PRN 03/03/2023 03/02/2024 Acti ve documented as of this encounter (statuses as of 08/13/2023) Active Problems Problem Noted Date Prediabetes 07/13/2023 [...] as of this encounter (statuses as of 08/13/2023) Resolved Problems Problem Noted Date Resolved Date [...] 02/04/2006 12/21/2008 Atrial septal aneurysm 02/04/2006 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 Pls arrange OP EUS. She is currently admitted at [facility] for anemia COY Thornton documented in this encounter Plan of Treatment Upcoming Encounters Date Type Specialty Care Team Description 08/16/2023 Telemedicine [facility] Sharmaine Johns PA-C [address] [place] [address] Kim Carrizales, Community Health Infantry Senior Sergeant [address] [place] [address] 08/18/2023 Laboratory Laboratory Processing [facility] Draw [address] [place] [address] 08/19/2023 Counts Include [address] [facility] [address] [place] [address] 09/20/2023 Telemedicine Psychiatry Hugo Alcantara MD [address] [place] [address] 01/07/2024 Office Visit Cardiology Saray Muhammad CRNP [address] [place] [address] Scheduled Orders Name Type Priority Associated Diagnoses [...] 02/16/2022 LUNG CANCER SCREENING - USE SMARTSET 11576 Completed 2023, 03/16/2022, 08/24/2018, Additional history exists [...] Healthcare Agent Relationshi p Communication Laura Gant [facility] Health Project Officer resentative (appointed verbally by patient or by statute hierarchy) Darlene Gilbert [facility] Health Project Officer resentative (appointed verbally by patient or by statute hierarchy) Care Teams Delivery Motorcycle Driver Relationship Specialty Start Date End Date Roger Alexandra MD [address] [place] [address] PCP - General Family Medicine 12/29/19 documented as of this encounter
--- OUTSIDE RECORDS SUMMARY | 2023-11-16 19:29 | External Medical Summary | Summary of Care ---
Author Name Unknown Organization [facility] [address] [facility] [address] Phone [phone] Care Team Providers Care Test Evaluator Name Role Phone Roger Alexandra MD Primary Care Provider +1 [phone] Encounter Details Date Type Department Care Team Description 08/13/2023 Orders Only Gastroenterology, [facility] [address] [place] [address] Argneis Leger MD [address] [place] [address] Allergies Active Allergy Reactions Severity Noted Date [...] BEDTIME 60 Capsule 5 04/05/2023 Active Nystatin 014937 UNIT/GM External Powder (Nyamyc) apply to affected [...] 11 07/07/2023 Active Vitamin D3 1.25 MG (55299 UT) Oral Capsule Take 1 Capsule by [...] [facility] PA-C [address] [place] [address] Kim Carrizales, Community Health Flute Polisher [address] [place] [address] 08/18/2023 Laboratory Laboratory Processing [facility], [facility] Mobile Home Draw [address] [place] [address] 08/19/2023 [facility] [address] [place] [address] 09/20/2023 Telemedicine Psychiatry Hugo Alcantara MD [address] [place] [address] 01/07/2024 Office Visit Cardiology Saray Muhammad CRNP [address] [place] [address] Scheduled Procedures Name Priority Associated Diagnoses Date/Ti [...] 02/16/2022 LUNG CANCER SCREENING - USE SMARTSET 01038 Completed 2023, 03/16/2022, 08/24/2018, Additional history exists [...] Date/Time Associated Diagnosis Comments UPPER GI ENDOSCOPY 08/13/2023 documented in this encounter Results * UPPER GI ENDOSCOPY (08/13/2023) 08/13/2023 Argenis Leger MD [facility] documented in this encounter Advance Directives Healthcare Agents on File Name Relationship Healthcare Agent Relationshi p Communication Laura Gant Adult [facility] Clip Wrapper resentative (appointed verbally by patient or by statute hierarchy) Darlene Gilbert Adult [facility] Health Clip Wrapper resentative (appointed verbally by patient or by statute hierarchy) Care Teams Test Evaluator Relationship Specialty Start Date End Date Roger Alexandra MD [address] [place] [address] PCP - General Family Medicine 12/29/19 documented as of this encounter
--- OUTSIDE RECORDS SUMMARY | 2023-11-16 19:30 | External Medical Summary | Summary of Care ---
Author Name Unknown Organization [facility] Address [address] [place] [address] Phone [phone] Care Team Providers Care Underwriting Assistant Name Role Phone Roger Alexandra MD Primary Care Provider +1 -[phone] Reason for Visit * Reason Onset Date Comments Med Request 08/05/2023 Encounter Details Date Type Department Care Team Description 08/05/2023 Telephone Psychiatry, [place] [address] [place], [place] [address] Services, [facility] [address] [place] [address] Med Request Allergies Active Allergy Reactions Severity Noted Date Comments Aspirin Unknown 12/12/2007 von Willebrand's disease Salicylates 03/01/2000 von Willebrand's disease documented as of this encounter (statuses as of 08/05/2023) Medications Medication Sig Dispensed Refills Start Date End Date Status oxygen IN GASIndications:Deburrer Machine 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 respiratory failure (HCC),COPD, group D, [...] BEDTIME 60 Capsule 5 04/05/2023 Active Nystatin 891584 UNIT/GM External Powder (Nyamyc) apply to affected [...] 11 07/07/2023 Active Vitamin D3 1.25 MG (20236 UT) Oral Capsule Take 1 Capsule by [...] for Anxiety. 90 Tablet 0 08/05/2023 Active LORazepam 0.5 MG Oral Tablet (Ativan) Take 1 Tablet by mouth every 8 hours as needed for Anxiety. Do not start before June 24, 2023. 90 Tablet 1 06/24/2023 3 Discontinu ed(Refill) Hospital, Clinic, or Other [...] as of this encounter (statuses as of 08/05/2023) Active Problems Problem Noted Date Prediabetes 07/13/2023 [...] as of this encounter (statuses as of 08/05/2023) Resolved Problems Problem Noted Date Resolved Date [...] as of this encounter (statuses as of 08/05/2023) Immunizations Name Administration Dates Next Due H1N1 [...] Miscellaneous Notes * Telephone Encounter - RUFINA Tom - 08/05/2023 1:08 PM EDT Patient Requesting Refill Prescribing Provider: Maricruz Arias Medication: Lorazepam Pharmacy: [facility] Last Visit Date: 05/24/23 Future Visit Date: 09/20/23 documented in this encounter Plan of Treatment Upcoming Encounters Date Type Specialty Care Team Description 08/09/2023 Laboratory Laboratory Processing [facility], [facility] Mobile Home Draw [address] [place] [address] 08/10/2023 [facility] [address] [place] [address] 08/16/2023 Telemedicine [facility] Sharmaine Johns PA-C [address] [place] [address] Kim Carrizales, Community Health Glass Lathe Operator [address] [place] [address] 09/20/2023 Telemedicine Psychiatry Hugo Alcantara MD [address] [place] [address] 01/07/2024 Office Visit Cardiology Saray Muhammad CRNP [address] [place] [address] Scheduled Procedures Name Priority Associated Diagnoses Date/Ti [...] 02/16/2022 LUNG CANCER SCREENING - USE SMARTSET 25560 Completed 2023, 03/16/2022, 08/24/2018, Additional history exists [...] Relationship Healthcare Agent Relationshi p Communication Laura aGnt [facility] Professional Application Designer resentative (appointed verbally by patient or by statute hierarchy) Darlene Gilbert [facility] Professional Application Designer resentative (appointed verbally by patient or by statute hierarchy) Care Teams Underwriting Assistant Relationship Specialty Start Date End Date Roger Alexandra MD [address] [place] [address] PCP - General Family Medicine 12/29/19 documented as of this encounter
--- OUTSIDE RECORDS SUMMARY | 2023-11-16 19:30 | External Medical Summary | Summary of Care ---
Author Name Unknown Organization [facility] Address [address] [place] [address] Phone [phone] Care Team Providers Care Mutuel Department Manager Name Role Phone Roger Alexandra MD Primary Care Provider +1 [phone] Reason for Visit * Reason Onset Date Comments Med Request 08/05/2023 Encounter Details Date Type Department Care Team Description 08/05/2023 Telephone Psychiatry, [place] [address] [place], [place] [address] Services, [facility] [address] [place] [address] Med Request Allergies Active Allergy Reactions Severity Noted Date Comments Aspirin Unknown 12/12/2007 von Willebrand's disease Salicylates 03/01/2000 von Willebrand's disease documented as of this encounter (statuses as of 08/06/2023) Medications Medication Sig Dispensed Refills Start Date End Date Status oxygen IN GASIndications:Rn Maternal Child 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 respiratory failure (HCC),COPD, group D, [...] BEDTIME 60 Capsule 5 04/05/2023 Active Nystatin 929837 UNIT/GM External Powder (Nyamyc) apply to affected [...] 11 07/07/2023 Active Vitamin D3 1.25 MG (10564 UT) Oral Capsule Take 1 Capsule by [...] as of this encounter (statuses as of 08/06/2023) Active Problems Problem Noted Date Prediabetes 07/13/2023 [...] as of this encounter (statuses as of 08/06/2023) Resolved Problems Problem Noted Date Resolved Date [...] as of this encounter (statuses as of 08/06/2023) Immunizations Name Administration Dates Next Due H1N1 [...] Miscellaneous Notes * Telephone Encounter - Narcisa Raines LPN - 08/06/2023 9:16 AM EDT Medication filled on 08/05/23 * Telephone Encounter - RUFINA Tom - 08/05/2023 1:08 PM EDT Patient Requesting Refill Prescribing Provider: Maricruz Arias Medication: Lorazepam Pharmacy: [facility] Last Visit Date: 05/24/23 Future Visit Date: 09/20/23 documented in this encounter Plan of Treatment Upcoming Encounters Date Type Specialty Care Team Description 08/09/2023 Laboratory Laboratory Processing [facility] Mobile Home Draw [address] [place] [address] 08/10/2023 [facility] [address] [place] [address] 08/16/2023 Telemedicine [facility] Sharmaine Johns PA-C [address] [place] [address] Kim Carrizales, Community Health Die Tripper [address] [place] [address] 09/20/2023 Telemedicine Psychiatry Hugo Alcantara MD [address] [place] [address] 01/07/2024 Office Visit Cardiology Saray Muhammad CRNP [address] [place] [address] Scheduled Procedures Name Priority Associated Diagnoses Date/Ti [...] 02/16/2022 LUNG CANCER SCREENING - USE SMARTSET 51824 Completed 2023, 03/16/2022, 08/24/2018, Additional history exists [...] Agent Relationshi p Communication Laura Gant Adult [facility] Health Psychopaedic Nurse resentative (appointed verbally by patient or by statute hierarchy) Darleneasher Gilbert Adult [facility] Health Psychopaedic Nurse resentative (appointed verbally by patient or by statute hierarchy) Care Teams Mutuel Department Manager Relationship Specialty Start Date End Date Roger Alexandra MD [address] [place] [address] PCP - General Family Medicine 12/29/19 documented as of this encounter
--- OUTSIDE RECORDS SUMMARY | 2023-11-16 19:30 | External Medical Summary | Summary of Care ---
Author Name Unknown Organization [facility] Address [address] [place] [address] Phone [phone] Care Team Providers Care Clinical Dietitian Name Role Phone Roger Alexandra MD Primary Care Provider [phone] Reason for Referral * Evaluate & Treat - Unlimited Visits (Within 30 days (routine)) - Authorized Specialty Diagnoses / Procedures Referred By Contac t Referred To Contact Hospice and Palliative Medicine / Palliative Medicine Diagnoses Chronic respiratory failure with hypoxia (HCC) Roger Alexandra MD [address] [place] [address] Referral ID Status Reason Start Date Expiration Date Visits Requested Visits Authorized [id number] Authorized Specialty Services Required 08/05/[phone] Question Answer Referral Priority Within 30 days (routine) Reason for Referral: COPD Palliative Medicine To Address: Pain & Symptom Management Is this referral for [facility] Palliative service? ([facility] Insurance Only) Yes Reason for Visit * Reason Onset Date Comments Appointment 08/05/2023 Referral 08/05/2023 Encounter Details Date Type Department Care Team Description 08/05/2023 Telephone Palliative Medicine [facility] [address] [place] [address] Services, Scheduling [address] [place] [address] Appointment; Referral Allergies Active Allergy Reactions Severity Noted Date Comments Aspirin Unknown 12/12/2007 von Willebrand's disease Salicylates 03/01/2000 von Willebrand's disease documented as of this encounter (statuses as of 08/05/2023) Medications Medication Sig Dispensed Refills Start Date End Date Status oxygen IN GASIndications:Chron ic hypoxemic respiratory failure (HCC),COPD, group D, by GOLD 2017 classification ([facility]) Use 2 LPM at rest, 4 LPM [...] BEDTIME 60 Capsule 5 04/05/2023 Active Nystatin 743006 UNIT/GM External Powder (Nyamyc) apply to affected [...] 24, 2023. 90 Tablet 1 06/24/2023 Active Furosemide 40 MG Oral Tablet (Lasix)Indications:C [...] 11 07/07/2023 Active Vitamin D3 1.25 MG (22175 UT) Oral Capsule Take 1 Capsule by [...] Muscle spasms. 90 Tablet 0 07/30/2023 Active Hospital, Clinic, or Other Facility Administered [...] Telephone Encounter - Yara Morris RN - 08/05/2023 10:44 AM EDT Patient ineligible for [facility] palliative due to medicare insurance. Will send palliative referral to [facility] to see if they would re-accept patient for services. In the past they declined due to patients history of non compliance. * Telephone Encounter - Giselle Wilder RN - 08/05/2023 9:52 AM EDT Provider to address: NA Reason for Call: Appointment and Referral Contact: Telephone Call Contact Type: Referral(s) Placed Outcome: new palliative care referral placed per dept Face to face time spent with Patient (minutes): 0 Total Time including non face to face (minutes): 10 * Telephone Encounter - RUFINA Mar - 08/05/2023 8:55 AM EDT We received a referral from you for Kimberly to be seen in Palliative Medicine. I called her to schedule this appointment but she stated that she would prefer at home services. If you could please place another referral and select YES for the question is this referral for [facility] Palliative service. Thank you so much! documented in this encounter Plan of Treatment Upcoming Encounters Date Type Specialty Care Team Description 08/09/2023 Laboratory Laboratory Processing [facility], [facility] Mobile Home Draw [address] [place] [address] 08/10/2023 [facility], [facility] [address] [place] [address] 08/16/2023 Telemedicine [facility] Sharmaine Johns PA-C [address] [place] [address] Kim Carrizales, Community Health Peanut Butter Maker [address] [place] [address] 01/07/2024 Office Visit Cardiology Saray Muhammad CRNP [address] [place] [address] Scheduled Procedures Name Priority Associated Diagnoses Date/Ti me COLONOSCOPY FLEXIBLE PROXIMA L DIAGNOSTIC Recall History of colonic polyps Scheduled Referrals Name Type Priority Associated Diagnoses Orde r Schedule PALLIATIVE CARE REFERRAL OP Referral Within 30 days (routine) Chronic respiratory failure with hypoxia (HCC) Ordered: 08/05/2023 Health Maintenance Due Date Last Done Comments [...] 02/16/2022 LUNG CANCER SCREENING - USE SMARTSET 17250 Completed 2023, 03/16/2022, 08/24/2018, Additional history exists [...] of this encounter Visit Diagnoses Diagnosis Chronic respiratory failure with hypoxia (HCC)- Primary Chronic respiratory failure documented in this encounter Advance Directives Healthcare Agents on File Name Relationship Healthcare Agent Relationshi p Communication [facility] Rep resentative (appointed verbally by patient or by statute hierarchy) Darlene Gilbert [facility] Rep resentative (appointed verbally by patient or by statute hierarchy) Care Teams Clinical Dietitian Relationship Specialty Start Date End Date Roger Alexandra MD [address] [place] [address] PCP - General Family Medicine 12/29/19 documented as of this encounter
--- OUTSIDE RECORDS SUMMARY | 2023-11-16 19:30 | External Medical Summary | Summary of Care ---
Author Name Unknown Organization [facility] Address [address] [place] [address] Phone [phone] Care Team Providers Care Block Cuber Name Role Phone Roger Alexandra MD Primary Care Provider [phone] Reason for Referral * Evaluate & Treat - Unlimited Visits (Within 30 days (routine)) - Authorized Specialty Diagnoses / Procedures Referred By Contac t Referred To Contact Hospice and Palliative Medicine / Palliative Medicine Diagnoses Chronic respiratory failure with hypoxia (HCC) Roger Alexandra MD [address] [place] [address] Referral ID Status Reason Start Date Expiration Date Visits Requested Visits Authorized [id number] Authorized Specialty Services Required 08/05/[phone] Question Answer Referral Priority Within 30 days (routine) Reason for Referral: COPD Palliative Medicine To Address: Pain & Symptom Management Is this referral for [facility] at [facility] Palliative service? ([facility] Insurance Only) Yes Reason for Visit * Reason Onset Date Comments Appointment 08/05/2023 Referral 08/05/2023 Encounter Details Date Type Department Care Team Description 08/05/2023 Telephone Palliative Medicine [facility] [address] [place] [address] Services, Scheduling [address] [place] [address] Appointment; Referral Allergies Active Allergy Reactions Severity Noted Date Comments Aspirin Unknown 12/12/2007 von Willebrand's disease Salicylates 03/01/2000 von Willebrand's disease documented as of this encounter (statuses as of 08/05/2023) Medications Medication Sig Dispensed Refills Start Date End Date Status oxygen IN GASIndications:Chron ic hypoxemic respiratory failure (HCC),COPD, group D, by GOLD 2017 classification ([facility]) Use 2 LPM at rest, 4 [...] HEALTH),Chronic hypoxemic respiratory failure (HCC) Use with nebulizer [...] BEDTIME 60 Capsule 5 04/05/2023 Active Nystatin 399989 UNIT/GM External Powder (Nyamyc) apply to affected [...] 11 07/07/2023 Active Vitamin D3 1.25 MG (64844 UT) Oral Capsule Take 1 Capsule by [...] medicare insurance. Will send palliative referral to [facility] to see if they would re-accept patient [...] Care Team Description 08/09/2023 Laboratory Laboratory Processing [facility], [facility] Mobile Home Draw [address] [place] [address] 08/10/2023 [facility], [facility] Telepharmacy, [facility] [address] [place] [address] 08/16/2023 Telemedicine [facility] Sharmaine Johns PA-C [address] [place] [address] Kim Carrizales, Community Health Senior Research Executive [address] [place] [address] 09/20/2023 Telemedicine Psychiatry Hugo Alcantara MD [address] [place] [address] 01/07/2024 Office Visit Cardiology Saray Muhammad CRNP [address] [place] [address] Scheduled Procedures Name Priority Associated Diagnoses Date/Ti [...] 02/16/2022 LUNG CANCER SCREENING - USE SMARTSET 50712 Completed 2023, 03/16/2022, 08/24/2018, Additional history exists [...] Communication Laura Gant [facility] Health Finisher Polisher resentative (appointed verbally by patient or by statute hierarchy) Darlene Gilbert [facility] Health Finisher Polisher resentative (appointed verbally by patient or by statute hierarchy) Care Teams Block Cuber Relationship Specialty Start Date End Date Roger Alexandra MD [address] [place] [address] PCP - General Family Medicine 12/29/19 documented as of this encounter
--- OUTSIDE RECORDS SUMMARY | 2023-11-16 19:30 | External Medical Summary | Summary of Care ---
Author Name Unknown Organization [facility] Address [address] [place] [address] Phone [phone] Care Team Providers Care Laborer Cutting Tool Name Role Phone Roger Alexandra MD Primary Care Provider [phone] Reason for Visit * Reason Comments NEW PATIENT * Evaluate & Treat - Unlimited Visits (Within 10 days (routine)) - Authorized Specialty Diagnoses / Procedures Referred By Contac t Referred To Contact Infectious Diseases / Infectious Disease Diagnoses Recurrent UTI Juan José Walters MD [address] [facility] [address] [place] [address] Referral ID Status Reason Start Date Expiration Date Visits Requested Visits Authorized [id number] Authorized Specialty Services Required 05/13/[phone] Encounter Details Date Type Department Care Team Description 08/04/2023 Office Visit Infectious Disease [facility] Heidi Templeton [address] [place] [address] Julieta Reyes MD [address], [place] [id number] Recurrent UTI* Allergies Active Allergy Reactions Severity Noted Date Comments Aspirin Unknown 12/12/2007 von Willebrand's disease Salicylates 03/01/2000 von Willebrand's disease documented as of this encounter (statuses as of 08/04/2023) Medications Medication Sig Dispensed Refills Start Date End Date Status oxygen IN GASIndications:Programming Development Project Manager 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 respiratory failure (HCC),COPD, group [...] BEDTIME 60 Capsule 5 04/05/2023 Active Nystatin 939693 UNIT/GM External Powder (Nyamyc) apply to affected [...] 06/24/2023 Active Furosemide 40 MG Oral Tablet (Lasix)Indications: [...] 11 07/07/2023 Active Vitamin D3 1.25 MG (16368 UT) Oral Capsule Take 1 Capsule by [...] Muscle spasms. 90 Tablet 0 07/30/2023 Active Ferrous Sulfate 325 (65 Fe) MG Oral Tablet (Feosol) 1 Tablet. 0 01/12/2023 3 Discontinu ed(Medicat ion List Clean Up) Hospital, Clinic, or Other Facility Administered Medication [...] as of this encounter (statuses as of 08/04/2023) Active Problems Problem Noted Date Prediabetes 07/13/2023 [...] as of this encounter (statuses as of 08/04/2023) Resolved Problems Problem Noted Date Resolved Date [...] as of this encounter (statuses as of 08/04/2023) Immunizations Name Administration Dates Next Due H1N1 [...] Sign Reading Time Taken Comments Blood Pressure 100/62 08/04/2023 10:25 AM EDT Pulse 106 08/04/2023 10:25 AM EDT Temperature 37.2 C (99 F) 08/04/2023 10:25 AM EDT Respiratory Rate 18 08/04/2023 10:25 AM EDT Oxygen Saturation 91% 08/04/2023 10:25 AM EDT 4LPM via NC Inhaled Oxygen Concentration - - Weight - - Height - - Body Mass Index - - documented in this encounter Progress Notes * Julieta Reyes MD - 08/04/2023 10:20 AM EDT INFECTIOUS DISEASE [facility]: Kimberly Kendall is a 63 year old female p/w recurrent UTI No chief complaint on file. HPI: 63 y/o F PMHx IBS with diarrhea ,depression ,anxiety,RUFINA,Von Willebrans disease ,idiopathic cardiomyopathy,hypothyroidism,chronic back pain ,Paroxysmal atrial fibrillation ,Chronic diastolic CHF,PTSD,COPD,Hx of narcotic addiction chronic respiratory failure who presents with recurrent UTI which occurs every 2 weeks .She reports she is incontinent because of several strokes and she experiences a burning sensation with pressure on urination which usually signals the beginning of a UTI .Her most recent positive urine culture was in January 2023 when she grew a rust susceptible E Coli .Patient is accompanied by her grand-daughter Patient Active Problem List Diagnosis Code Irritable bowel syndrome with diarrhea K58.0 Depression with anxiety F41.8 Obstructive sleep apnea G47.33 Von Willebrand disease ([facility]) D68.00 Idiopathic cardiomyopathy ([facility]) I42.9 Acquired hypothyroidism E03.9 Super obese E66.9 Chronic bilateral low back pain without sciatica M54.50, G89.29 Paroxysmal atrial fibrillation ([facility]) I48.0 History of multiple strokes Z86.73 Chronic diastolic CHF (congestive heart failure) ([facility]) I50.32 PTSD (post-traumatic stress disorder) F43.10 COPD, group D, by GOLD 2017 classification ([facility]) J44.9 Chronic respiratory failure with hypoxia ([facility]) J96.11 History of narcotic addiction ([facility]) F11.21 Decreased functional mobility R26.89 Oxygen dependent Z99.81 Prediabetes R73.03 Current Outpatient Medications Medication Sig Dispense Refill [...] MG Oral Tablet (Feosol) 1 Tablet. Nystatin 262154 UNIT/GM External Powder (Nyamyc) apply to affected [...] before June 24, 2023. 90 Tablet 1 Furosemide 40 MG Oral Tablet [...] 30 Tablet 11 Vitamin D3 1.25 MG (74458 UT) Oral Capsule Take 1 Capsule by mouth once a week. 12 Capsule 0 ProAir HFA 108 (90 Base) MCG/ACT Inhalation Aerosol Solution Inhale 2 Puffs by mouth in the morningand 2 Puffs at noon and 2 Puffs in the evening and 2 Puffs before bedtime. 18 g 5 Acetaminophen-Codeine 300-30 MG Oral Tablet Take 1 Tablet by mouth every 6 hours as needed for Pain, Moderate. 120 Tablet 0 Baclofen 10 MG Oral Tablet (Lioresal) Take 1 Tablet by mouth 3 times a day as needed for Muscle spasms. 90 Tablet 0 Current Facility-Administered Medications Medication Dose Route Frequency Provider Last Rate Last Admin Albuterol Sulfate (Proventil) (2.5 MG/3ML) 0.083% inhalation solution 2.5 mg 2.5 mg Nebulizer PRN Juan Quintero MD 2.5 mg at 03/09/23 1107 Albuterol Sulfate (Proventil) (5 MG/ML) 0.5% *conc* inhalation solution 2.5 mg 2.5 mg Nebulizer Terrance Quintero MD Past Medical History: Diagnosis Date Back disorder Benign neoplasm of colon 10/06/2010 adenomatous/repeat colonoscopy in 1 yr Chronic bilateral low back pain without sciatica 10/14/2020 COPD (chronic obstructive pulmonary disease) (HCC) COPD, mild (HCC) 04/06/2007 COPD, severe (HCC) 04/06/2007 Decreased functional mobility 08/28/2022 Depressive disorder, not elsewhere classified Drug-seeking behavior 10/17/2020 Generalized osteoarthritis History of multiple strokes 10/17/2020 History of narcotic addiction ([facility]) 12/19/2021 Hyperplastic colonic polyp Hypothyroidism 04/16/2015 Malaise and fatigue Mixed dyslipidemia Moderate episode of recurrent major depressive disorder (HCC) 03/05/2020 Morbid obesity due to excess calories ([facility]) 03/05/2020 Narcotic addiction ([facility]) 10/04/2014 Non compliance w medication regimen 10/14/2020 Oxygen dependent 12/29/2019 Paroxysmal atrial fibrillation (HCC) 10/14/2020 Patent foramen ovale Prediabetes 07/13/2023 PTSD (post-traumatic stress disorder) 03/05/2021 Schizoaffective disorder, chronic condition ([facility]) followed Dr Robby Diego [facility] Sequelae, post-stroke CVA Status asthmaticus Von Willebrand's disease ([facility]) Past Surgical History: Procedure Laterality Date BREAST BIOPSY Left benign--- done in her late 20's COLONOSCOPY THRU STOMA, W/BIOPSY 10/06/2010 adenomatous/repeat colonoscopy in 1 yr COLONOSCOPY THRU STOMA, W/BIOPSY 05/22/2013 hyperplastic polyp COLONOSCOPY, DIAGNOSTIC (RECTUM) 11/12/2020 large adenomatous polyp, repeat 6 mo / [facility] [place] COLONOSCOPY, DIAGNOSTIC (RECTUM) N/A 01/13/2023 multiple small and larged mouthed diverticula/angiodysplastic lesion ascending colon/hemorrhoids/biopsies show adenomatous polyps/recall 1-2 years/Colon/[facility] EGD, FLEXIBLE, DIAGNOSTIC 02/26/2015 retained food/[facility] [place] EGD, FLEXIBLE, DIAGNOSTIC 11/12/2020 Gastric submucosal mass / [facility] [place] EGD, FLEXIBLE, DIAGNOSTIC 11/06/2020 gastritis / [facility] [place] EGD, FLEXIBLE, W/BIOPSY 05/19/2013 EGD, W/ENDOSCOPIC US 11/05/2011 UPPER GI ENDOSCOPY ENDOSCOPIC ULTRASOUND performed by BERENICE ASHBY at [facility]; REPAIR INITIAL INGUINAL HERNIA REMOVE GALLBLADDER [...] Types: Cigarettes Quit date: 2019 Years since quittin.7 Smokeless tobacco: Never Vaping Use Vaping Use: [...] on file Housing Stability: Not on file Review of Systems: Constitutional ROS: No change in weight and No fevers, sweats, or chills Genito-Urinary Female ROS: No STDs, No dysuria, No frequency, No incontinence, No irregular menstruation, No urgency, and No vaginal discharge Rest of ROS negative PHYSICAL EXAM: There were no vitals taken for this visit. General: alert, no distress, well nourished, well developed, comfortable, and cooperative Head: Normocephalic Eye Exam: PERRLA, extraocular movements intact, conjunctiva are pink and non- injected, sclera clear Lungs: normal respiratory rate and rhythm Abdomen: abdomen soft and obese Extremities: no trauma Skin: skin color, texture, turgor are normal LABS: Labs reviewed as indicated below: I have reviewed her labs No leukocytosis MICROBIOLOGY DATA: I have reviewed her cultures Susceptibility Escherichia coli MICROBROTH DILUTIONS Ampicillin Susceptible Cefazolin Susceptible Cefepime Susceptible Ceftriaxone Susceptible Ciprofloxacin Susceptible 1 Gentamicin Susceptible Nitrofurantoin Susceptible Piperacillin Tazobactam Susceptible Trimeth/Sulfamethoxazole Resistant IMAGING: I have reviewed her imaging ASSESSMENT:Patient morbidly obese s/p multiple CVA's ,chronic respiratory failure who was referred to ID clinic because of recurrent UTIs.Discussed that chronic suppression with antibiotics would only lead to her developing more resistant strains of bacteria and would recommend treating as she develops symptoms PLAN: Schedule labs: patient will call when symptomatic and I will place and order for urine testing Patient education: antibiotic resistance Follow up 3 months . Julieta Reyes MD Infectious Disease [address] [address] documented in this encounter Nursing Notes * Brianna Aguilar LPN - 08/04/2023 10:24 AM EDT Patient here to see infectious disease for multi-drug resistant UTI. Says she needs to figure out the right medicine to take. documented in this encounter Plan of Treatment Upcoming Encounters Date Type Specialty Care Team Description 08/09/2023 Laboratory Laboratory Processing [facility], [facility] Mobile Home Draw [address] [place] [address] 08/10/2023 [facility] [address] [facility] [address] 08/16/2023 Telemedicine [facility] Sharmaine Johns PA-C [address] [place] [address] Kim Carrizales, Community Health Grain Drier [address] [place] [address] 01/07/2024 Office Visit Cardiology Saray Muhammad CRNP [address] [place] [address] Scheduled Procedures Name Priority Associated Diagnoses Date/Ti [...] ASSESSMENT COMPLETED IN PAST YEAR FOR COPD 07/27/2024 07/27/2023 COLONOSCOPY-EVERY 5 YRS AGES 18-100 01/14/2028 01/13/2023, 11/12/2020, 05/22/2013, Additional history exists Lipid Panel 03/09/2028 03/09/2023, 08/15, 09/25/2015, Additional history exists Alpha-1 Antitrypsin Completed 02/16/2022 LUNG CANCER SCREENING - USE SMARTSET 58267 Completed 2023, 03/16/2022, 08/24/2018, Additional history exists [...] Relationshi p Communication Laura Gant [facility] Health Warranty Manager resentative (appointed verbally by patient or by statute hierarchy) Darlene Gilbert [facility] Health Warranty Manager resentative (appointed verbally by patient or by statute hierarchy) Care Teams Laborer Cutting Tool Relationship Specialty Start Date End Date Roger Alexandra MD [address] [place] [address] PCP - General Family Medicine 12/29/19 documented as of this encounter
--- OUTSIDE RECORDS SUMMARY | 2023-11-16 19:30 | External Medical Summary | Summary of Care ---
Author Name Unknown Organization [facility] Address [address] [place] [address] Phone [phone] Care Team Providers Care Cook Ice Cream Name Role Phone Roger Alexandra MD Primary Care Provider +1 -[phone] Reason for Referral * Evaluate & Treat - Unlimited Visits (Within 10 days (routine)) - Authorized Specialty Diagnoses / Procedures Referred By Contac t Referred To Contact Hospice and Palliative Medicine / Palliative Medicine Diagnoses Chronic respiratory failure with hypoxia (HCC) Roger Alexandra MD [address] [place] [address] Referral ID Status Reason Start Date Expiration Date Visits Requested Visits Authorized [id number] Authorized Specialty Services Required 08/04/2023 999 999 Question Answer Referral Priority Within 10 days (routine) Reason for Referral: COPD Palliative Medicine To Address: Pain & Symptom Management Is this referral for [facility] Palliative service? ([facility] Insurance Only) No Reason for Visit * Reason Onset Date Comments case management 08/04/2023 Encounter Details Date Type Department Care Team Description 08/04/[address] Wall Steamer [address] [facility] [address] [place] [address] Yara Morris RN case management Allergies Active Allergy Reactions Severity Noted Date Comments Aspirin Unknown 12/12/2007 von Willebrand's disease Salicylates 03/01/2000 von Willebrand's disease documented as of this encounter (statuses as of 08/04/2023) Medications Medication Sig Dispensed Refills Start Date End Date Status oxygen IN GASIndications:Chron ic hypoxemic respiratory failure (HCC),COPD, group D, by GOLD 2017 classification ([facility]) Use 2 LPM at rest, 4 [...] BEDTIME 60 Capsule 5 04/05/2023 Active Nystatin 700709 UNIT/GM External Powder (Nyamyc) apply to affected [...] 11 07/07/2023 Active Vitamin D3 1.25 MG (40262 UT) Oral Capsule Take 1 Capsule by [...] Telephone Encounter - Yara Morris RN - 08/04/2023 12:38 PM EDT CM Progress note S: spoke with patient, reports that she is feeling "okay" and "the same". Had an appointment with ID. Appt note states if becomes symptomatic again will order UA. Kimberly has been using her nebulizer once a day. Reports swelling has improved. Foot is still sore, but bruising is improving/is now yellow/fading. Denies any falls. She would still like to have palliative care consult evaluation. Would like her granddaughters to be present for this. Denies any needs at this time. [facility] home health isto visit with PT and SN this week. O: RAYSHAWN week 2 follow up A: Alert and oriented P: Reinforce care plan as previously established. Will place referral to palliative medicine. documented in this encounter Plan of Treatment Upcoming Encounters Date Type Specialty Care Team Description 08/09/2023 Laboratory [facility] Draw [address], [place] [id number] 08/10/2023 [facility] [address] [place] [address] 08/16/2023 Telemedicine [facility] Sharmaine Johns PA-C [address] [place] [address] Kim Carrizales, Community Health Manager Immunology [address] [place] [address] 01/07/2024 Office Visit Cardiology Saray Muhammad CRNP [address] [place] [address] Scheduled Procedures Name Priority Associated Diagnoses Date/Ti me COLONOSCOPY FLEXIBLE PROXIMA L DIAGNOSTIC Recall History of colonic polyps Scheduled Referrals Name Type Priority Associated Diagnoses Orde r Schedule PALLIATIVE CARE REFERRAL OP Referral Within 10 days (routine) Chronic respiratory failure with hypoxia (HCC) Ordered: 08/04/2023 Health Maintenance Due Date Last Done Comments [...] COMPLETED IN PAST YEAR FOR COPD 07/27/2024 08/04/2023 COLONOSCOPY-EVERY 5 YRS AGES 18-100 01/14/2028 01/13/2023, 11/12/2020, 05/22/2013, Additional history exists Lipid Panel 03/09/2028 03/09/2023, 08/15, 09/25/2015, Additional history exists Alpha-1 Antitrypsin Completed 02/16/2022 LUNG CANCER SCREENING - USE SMARTSET 73014 Completed 2023, 03/16/2022, 08/24/2018, Additional history exists [...] Agent Relationshi p Communication Laura Gant Adult [facility] Health Manager Coding resentative (appointed verbally by patient or by statute hierarchy) Darleneasher Gilbert Adult [facility] Health Manager Coding resentative (appointed verbally by patient or by statute hierarchy) Care Teams Cook Ice Cream Relationship Specialty Start Date End Date Roger Alexandra MD [address] [place] [address] PCP - General Family Medicine 12/29/19 documented as of this encounter
--- OUTSIDE RECORDS SUMMARY | 2023-11-16 19:30 | External Medical Summary ---
Author Name Unknown Address Unknown Organization K[facility] [address] [place] [address] Laboratory Report Ordering Provider Test Date Status SUMAN STANFORD 08/09/2023 09:01:00 Final Standing order for pt/inr. < br/>Please draw pt/inr every 1 to 4 weeks as requested
Results to [facility]

Warfarin Therapy
INR: 2.0-3.0 conventional anticoagulation
INR: 2.5-3.5 high intensity anticoagulation Observation Date Value Abnormality Reference (Units ) Status PT 08/09/2023 09:01:00 >70.0 Above high normal 11 .6-15.2 (seconds) Final Results rechecked. INR 08/09/2023 09:01:00 >9.0 Above upper panic li mits 0.8-1.2 Final Results rechecked. Performing Location [facility] [address] [place] [address]
--- OUTSIDE RECORDS SUMMARY | 2023-11-16 19:30 | External Medical Summary | Summary of Care ---
Author Name Unknown Organization [facility] Address [address] [facility] [address] Phone [phone] Care Team Providers Care Head Of Integrated Media Name Role Phone Roger Alexandra MD Primary Care Provider [phone] [phone] Reason for Visit * Reason Comments Dosage Adjustment Via Phone (anticoag Cl inic) Encounter Details Date Type Department Care Team Description 08/09/2023 Anticoagulation Pharmacy Call Center [address] [place] [address] [facility] [address] [facility] [place] [address] Anticoagulation management encounter* Allergies Active Allergy Reactions Severity Noted Date Comments Aspirin Unknown 12/12/2007 von Willebrand's disease Salicylates 03/01/2000 von Willebrand's disease documented as of this encounter (statuses as of 08/09/2023) Medications Medication Sig Dispensed Refills Start Date [...] BEDTIME 60 Capsule 5 04/05/2023 Active Nystatin 525715 UNIT/GM External Powder (Nyamyc) apply to affected [...] 11 07/07/2023 Active Vitamin D3 1.25 MG (48135 UT) Oral Capsule Take 1 Capsule by [...] as of this encounter (statuses as of 08/09/2023) Active Problems Problem Noted Date Prediabetes 07/13/2023 [...] as of this encounter (statuses as of 08/09/2023) Resolved Problems Problem Noted Date Resolved Date [...] as of this encounter (statuses as of 08/09/2023) Immunizations Name Administration Dates Next Due H1N1 [...] this encounter Progress Notes * Kim Mercado, [facility] - 08/09/2023 10:19 AM EDT Images from the original note were not included. Medication Therapy Disease Management - Anticoagulation Patient: Kimberly Kendall | : 1960 Subjective Contacts Type Contact Phone/Fax 08/09/2023 10:27 AM EDT Phone (Outgoing) Enoch Kimberly Flo (Self) [phone] (M) Spoke to Patient Patient-Reported Symptoms: Patient Findings Positives: Change in health Negatives: Signs/symptoms of thrombosis, Signs/symptoms of bleeding, Change in alcohol use, Change in activity, Upcoming invasive procedure, Missed doses, Extra doses, Change in medications, Change in diet/appetite, Bruising Comments: Pt states she's had diarrhea the past few days and hasn't been eating as much as normal. Advised to call if she ever has diarrhea >24 hours. Pt denies any signs of bleeding, fever, vomiting. Advised to drink 2-3 bottles of Boost/Ensure today to lower INR faster. Objective Current Warfarin Dose As of 08/09/2023 Warfarin maintenance plan: 2.5 mg (5 mg x 0.5) every Mon, Wed, Fri; 5 mg (5 mg x 1) all other days INR Result As of 08/09/2023 INR goal: 2.0-3.0 INR used for dosing: >9.0 (08/09/2023) Assessment & Plan Warfarin Plan As of 08/09/2023 Full warfarin instructions: 08/09: Hold Next INR check: 08/10/2023 Repeat PT/INR in 1 day(s) Weekly dose: Holding Additional Dosing Information: Description [facility] Also sent MyG after trying to call Kim Mercado RPh Clinical Pharmacist 08/09/2023, 10:20 AM documented in this encounter Plan of Treatment Upcoming Encounters Date Type Specialty Care Team Description 08/16/2023 Telemedicine [facility] Sharmaine Johns PA-C [address] [place] [address] Kim Carrizales Community Health Director Channel [address] [place] [address] 09/20/2023 Telemedicine Psychiatry Hugo Alcantara MD [address] [place] [address] 01/07/2024 Office Visit Cardiology Saray Muhammad CRNP [address] [place] [address] Scheduled Procedures Name Priority Associated Diagnoses Date/Ti [...] 02/16/2022 LUNG CANCER SCREENING - USE SMARTSET 63674 Completed 2023, 03/16/2022, 08/24/2018, Additional history exists [...] Healthcare Agent Relationshi p Communication Laura Gant [facility] Health Instant Potato Processor resentative (appointed verbally by patient or by statute hierarchy) Darlene Gilbert [facility] Health Instant Potato Processor resentative (appointed verbally by patient or by statute hierarchy) Care Teams Head Of Integrated Media Relationship Specialty Start Date End Date Roger Alexandra MD [address] [place] [address] PCP - General Family Medicine 12/29/19 documented as of this encounter"
--- OUTSIDE RECORDS SUMMARY | 2023-11-16 19:31 | External Medical Summary | Summary of Care ---
Author Name Unknown Organization [facility] Address [address] [facility] [place] [address] Phone [phone] Care Team Providers Care Chief Deputy Court Clerk Name Role Phone Jeevan Mclean MD Primary Care Provider [phone] [phone] Reason for Visit * Reason Onset Date Comments Medication Refill 07/29/2023 Encounter Details Date Type Department Care Team Description 07/29/2023 Refill Family Practice [facility] [address] [place] [address] Jeevan Mclean MD [address] [place] [address] Chronic bilateral low back pain without sciatica Allergies Active Allergy Reactions Severity Noted Date Comments Aspirin Unknown 12/12/2007 von Willebrand's disease Salicylates 03/01/2000 von Willebrand's disease documented as of this encounter (statuses as of 07/30/2023) Medications Medication Sig Dispensed Refills Start Date End Date Status oxygen IN GASIndications:Asbestos Cement Sheet Supervisor 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 respiratory failure (HCC),COPD, group [...] (Feosol) 1 Tablet. 0 01/12/2023 Active Nystatin 393685 UNIT/GM External Powder (Nyamyc) apply to affected [...] 11 07/07/2023 Active Vitamin D3 1.25 MG (46921 UT) Oral Capsule Take 1 Capsule by [...] Muscle spasms. 90 Tablet 0 07/30/2023 Active Baclofen 10 MG Oral Tablet (Lioresal)Indicatio ns:Chronic bilateral low back pain without sciatica Take 1 Tablet by mouth 3 times a day as needed for Muscle spasms. 90 Tablet 0 06/21/2023 3 Discontinu ed(Refill) Hospital, Clinic, or Other [...] as of this encounter (statuses as of 07/30/2023) Active Problems Problem Noted Date Prediabetes 07/13/2023 [...] as of this encounter (statuses as of 07/30/2023) Resolved Problems Problem Noted Date Resolved Date [...] as of this encounter (statuses as of 07/30/2023) Immunizations Name Administration Dates Next Due H1N1 [...] Telephone Encounter - Jeevan Mclean MD - 07/30/2023 10:50 AM EDTSigned Prescriptions: Disp Refills Baclofen 10 MG Oral Tablet (Lioresal) 90 Tab*0 Sig: Take 1 Tablet by mouth 3 times a day as needed for Muscle spasms. Authorizing Provider: JEEVAN MCLEAN * Telephone Encounter - April Medellin [facility] - 07/30/2023 10:50 AM EDTPending Prescriptions: Disp Refills Baclofen 10 MG Oral Tablet (Lioresal) 90 Tab*0 Sig: Take 1 Tablet by mouth 3 times a day as needed for Muscle spasms. * Telephone Encounter - April Medellin [facility] - 07/30/2023 10:50 AM EDT [facility] is currently not authorized to approve refills for the pended medication(s) per refill protocol. Please approve if appropriate. Thank you, April Medellin [facility] Clinical Pharmacist Centralized Clinical Pharmacy Services (CCPS) (formerly Telepharmacy) 07/30/23 10:50 AM [phone] * Telephone Encounter - April Medellin [facility] - 07/30/2023 10:49 AM EDT Did you pend patient's preferred pharmacy and medication before forwarding?yes Pharmacy: [id number] Pending Prescriptions: Disp Refills Baclofen 10 MG Oral Tablet (Lioresal) 90 Tab*0 Sig: Take 1 Tablet by mouth 3 times a day as needed for Muscle spasms. Last Visit: 07/27/2023 (in office), 12/16/2022 (telemedicine) Next Visit: Visit date not found If no future appointments scheduled, and last appointment is greater than a year ago, please schedule patient for a follow-up appointment Last date the medication was ordered: 06/21/2023 Is this request for a controlled substance?No Urine Drug Screen:No results found. However, due to the size of the patient record, not all encounters were searched. Please check Results Review for a complete set of results. Patient Phone Numbers Labs: Lab Results Component Value Date/Time CREAT 0.7 07/12/2023 07:01 AM CREAT 0.77 11/21/2021 12:00 AM CREAT 0.7 10/17/2020 03:40 PM POTASSIUM 4.2 07/12/2023 07:01 AM POTASSIUM 2.8 (A) 11/21/2021 12:00 AM POTASSIUM 4.6 10/17/2020 03:40 PM TSH 2.32 07/12/2023 07:01 AM TSH 0.66 12/29/2019 10:22 AM LDLCALC 131 (H) 03/09/2023 12:12 PM LDLCALC 111 08/24/2018 04:39 AM LDLCALC 123 05/01/2011 11:39 AM LDLDIRECT 138 (H) 02/14/2015 09:27 AM ALT 11 07/12/2023 07:01 AM ALT 6 (L) 12/29/2019 10:22 AM HGBA1C 6.3 (H) 07/12/2023 07:01 AM HGBA1C 5.8 08/24/2018 04:39 AM HGBA1C 5.7 04/19/2014 12:08 PM documented in this encounter Plan of Treatment Upcoming Encounters Date Type Specialty Care Team Description 08/02/2023 Telemedicine [facility] Sharmaine Johns PA-C [address] [place] [address] Aisha Gilliland, Community Health [address] [place] [id number] 08/03/2023 Laboratory Laboratory Processing [facility] Mobile Home Draw [address] [place] [address] 08/04/2023 [facility] [address] [place] [address] 08/04/2023 Office Visit Infectious Disease Julieta Reyes MD [address] [place] [address] 01/07/2024 Office Visit Cardiology Saray Muhammad CRNP [address] [place] [address] Scheduled Procedures Name Priority Associated Diagnoses Date/Ti [...] 02/16/2022 LUNG CANCER SCREENING - USE SMARTSET 35118 Completed 2023, 03/16/2022, 08/24/2018, Additional history exists [...] Agent Relationshi p Communication Laura Gant [facility] Health Environmental Manager resentative (appointed verbally by patient or by statute hierarchy) Darlene Gilbert [facility] Health Environmental Manager resentative (appointed verbally by patient or by statute hierarchy) Care Teams Chief Deputy Court Clerk Relationship Specialty Start Date End Date Jeevan Mlcean MD [address] [place] [address] PCP - General Family Medicine 12/29/19 documented as of this encounter
--- OUTSIDE RECORDS SUMMARY | 2023-11-16 19:31 | External Medical Summary | Summary of Care ---
Author Name Unknown Organization [facility] Address [address] [place] [address] Phone [phone] Care Team Providers Care Network Lead Name Role Phone Roger Alexandra MD Primary Care Provider [phone] [phone] Reason for Visit * Reason Onset Date Comments Appointment 08/02/2023 Encounter Details Date Type Department Care Team Description 08/02/2023 [facility]phone [facility] [address] [place] [address] Services, Scheduling [address] [place] [address] Appointment (//) Allergies Active Allergy Reactions Severity Noted Date Comments Aspirin Unknown 12/12/2007 von Willebrand's disease Salicylates 03/01/2000 von Willebrand's disease documented as of this encounter (statuses as of 08/02/2023) Medications Medication Sig Dispensed Refills Start Date [...] (Feosol) 1 Tablet. 0 01/12/2023 Active Nystatin 325303 UNIT/GM External Powder (Nyamyc) apply to affected [...] 11 07/07/2023 Active Vitamin D3 1.25 MG (42457 UT) Oral Capsule Take 1 Capsule by [...] as of this encounter (statuses as of 08/02/2023) Active Problems Problem Noted Date Prediabetes 07/13/2023 [...] as of this encounter (statuses as of 08/02/2023) Resolved Problems Problem Noted Date Resolved Date [...] as of this encounter (statuses as of 08/02/2023) Immunizations Name Administration Dates Next Due H1N1 [...] * Telephone Encounter - RUFINA Lozoya - 08/02/2023 12:08 PM EDT Call to pt to confirm r/s telemed for 08/16 at 830/9am, pt agreeable documented in this encounter Plan of Treatment Upcoming Encounters Date Type Specialty Care Team Description 08/03/2023 Laboratory Laboratory Processing [facility], [facility] Mobile Home Draw [address] [place] [address] 08/04/2023 [facility] [address] [place] [address] 08/04/2023 Office Visit Infectious Disease Julieta Reyes MD [address] [place] [address] 08/16/2023 Telemedicine [facility] Sharmaine Johns PA-C [address] [place] [address] Kim Carrizales, Community Health Customer Experience Manager [address] [place] [address] 01/07/2024 Office Visit Cardiology Saray Muhammad CRNP [address] [place] [address] Scheduled Procedures Name Priority Associated Diagnoses Date/Ti [...] 02/16/2022 LUNG CANCER SCREENING - USE SMARTSET 42963 Completed 2023, 03/16/2022, 08/24/2018, Additional history exists [...] Relationshi p Communication Laura Gant Adult [facility] Health Mechanical Technologist resentative (appointed verbally by patient or by statute hierarchy) Darlene Gilbert Adult [facility] Health Mechanical Technologist resentative (appointed verbally by patient or by statute hierarchy) Care Teams Network Lead Relationship Specialty Start Date End Date Roger Alexandra MD [address] [place] [address] PCP - General Family Medicine 12/29/19 documented as of this encounter
--- OUTSIDE RECORDS SUMMARY | 2023-11-16 19:31 | External Medical Summary | Summary of Care ---
Author Name Unknown Organization [facility] Address [address] [place] [address] Phone [phone] Care Team Providers Care Metal Drilling Machine Operator Name Role Phone Roger Alexandra MD Primary Care Provider [phone] [phone] Reason for Visit * Reason Onset Date Comments Advice 07/28/2023 Encounter Details Date Type Department Care Team Description 07/28/2023 Telephone Family Practice [facility] [address] [place] [address] Roger Alexandra MD [address] [place] [address] Advice Allergies Active Allergy Reactions Severity Noted Date Comments Aspirin Unknown 12/12/2007 von Willebrand's disease Salicylates 03/01/2000 von Willebrand's disease documented as of this encounter (statuses as of 07/28/2023) Medications Medication Sig Dispensed Refills Start Date [...] (Feosol) 1 Tablet. 0 01/12/2023 Active Nystatin 369051 UNIT/GM External Powder (Nyamyc) apply to affected [...] 11 07/07/2023 Active Vitamin D3 1.25 MG (80532 UT) Oral Capsule Take 1 Capsule by [...] Pain, Moderate. 120 Tablet 0 07/26/2023 Active Hospital, Clinic, or Other Facility Administered Medication Ordered Dose Route Frequency Start Date End Date Status Albuterol Sulfate (Proventil) (2.5 MG/3ML) 0.083% inhalation solution 2.5 mgIndications:COPD, group D, by GOLD 2017 classification ([facility]) 2.5 mg NEBULIZER PRN 03/03/2023 03/02/2024 Acti ve Albuterol Sulfate (Proventil) (5 MG/ML) 0.5% *conc* inhalation solution 2.5 mgIndications:COPD, group D, by GOLD 2017 classification ([facility]) 2.5 mg NEBULIZER PRN 03/03/2023 03/02/2024 Acti ve documented as of this encounter (statuses as of 07/28/2023) Active Problems Problem Noted Date Prediabetes 07/13/2023 [...] as of this encounter (statuses as of 07/28/2023) Resolved Problems Problem Noted Date Resolved Date [...] as of this encounter (statuses as of 07/28/2023) Immunizations Name Administration Dates Next Due H1N1 [...] Miscellaneous Notes * Telephone Encounter - RUFINA Lyons - 07/28/2023 2:25 PM EDT Pts orin called and is aware of message. * Telephone Encounter - Kimberly Brooks - 07/28/2023 2:20 PM EDT LM for pt to call back to let her know to go to ortho walk in * Telephone Encounter - Alonso Chávez MD - 07/28/2023 2:05 PM EDT PCP out today. They can do walk in to ortho * Telephone Encounter - Alisha Michele LPN - 07/28/2023 10:13 AM EDT Provider to address: granddaughter and pt calling. Pt was seen yesterday. Prior to her appt , she fell in the shower. She showed Dr Alexandra her foot and advised it was bruised. Foot is more swollen andhurts today. Pt is having hard time transferring, bearing wt today. She is inquiring if an xray could be ordered? Or if there are any recommendations for swelling. Please advise. Reason for Call: Advice Contact: Telephone Call Contact Type: Care Coordination Outcome: na Total Time including non face to face (minutes): 5 * Telephone Encounter - RUFINA Zamora - 07/28/2023 10:09 AM EDT Reason for patient's call: Patient and Grand daughter on the phone asking for advice on her foot. Caller was transferred to Alisha at the nurse line. documented in this encounter Plan of Treatment Upcoming Encounters Date Type Specialty Care Team Description 08/02/2023 Telemedicine [facility] Sharmaine Johns PA-C [address] [place], [place] [phone] Aisha Gilliland, Community Health Congressional Representative [address] [place] [address] [place] [address] 08/03/2023 Laboratory Laboratory Processing [facility] Draw [address] [place] [address] 08/04/2023 [facility] [address] [place] [address] 08/04/2023 Office Visit Infectious Disease Julieta Reyes MD [address] [place] [address] 01/07/2024 Office Visit Cardiology Saray Muhammad CRNP [address] [place] [address] Scheduled Procedures Name Priority Associated Diagnoses Date/Ti [...] 02/16/2022 LUNG CANCER SCREENING - USE SMARTSET 45294 Completed 2023, 03/16/2022, 08/24/2018, Additional history exists [...] Relationship Healthcare Agent Relationshi p Communication Laura [facility] Rep resentative (appointed verbally by patient or by statute hierarchy) Darlene Gilbert Adult [facility] Health Wafer Polisher resentative (appointed verbally by patient or by statute hierarchy) Care Teams Metal Drilling Machine Operator Relationship Specialty Start Date End Date Roger Alexandra MD [address] [place] [address] PCP - General Family Medicine 12/29/19 documented as of this encounter
--- OUTSIDE RECORDS SUMMARY | 2023-11-16 19:31 | External Medical Summary | Summary of Care ---
Author Name Unknown Organization [facility] Address [address] [place] [address] Phone [phone] Care Team Providers Care Shredded Filler Cutter Operator Name Role Phone Roger Alexandra MD Primary Care Provider [phone] Reason for Visit * Reason Onset Date Comments Medication Refill 07/29/2023 Encounter Details Date Type Department Care Team Description 07/29/2023 Refill Psychiatry, [facility] [address] [place] [address] Hugo Alcantara MD [address] [place] [address] Allergies Active Allergy Reactions Severity Noted Date Comments Aspirin Unknown 12/12/2007 von Willebrand's disease Salicylates 03/01/2000 von Willebrand's disease documented as of this encounter (statuses as of 07/29/2023) Medications Medication Sig Dispensed Refills Start Date [...] (Feosol) 1 Tablet. 0 01/12/2023 Active Nystatin 473255 UNIT/GM External Powder (Nyamyc) apply to affected [...] 11 07/07/2023 Active Vitamin D3 1.25 MG (06747 UT) Oral Capsule Take 1 Capsule by [...] as of this encounter (statuses as of 07/29/2023) Active Problems Problem Noted Date Prediabetes 07/13/2023 [...] as of this encounter (statuses as of 07/29/2023) Resolved Problems Problem Noted Date Resolved Date [...] as of this encounter (statuses as of 07/29/2023) Immunizations Name Administration Dates Next Due H1N1 [...] encounter Miscellaneous Notes * Telephone Encounter - Consuelo Nix RN - 07/29/2023 3:30 PM EDTRefused Prescriptions: Disp Refills LORazepam 0.5 MG Oral Tablet (Ativan) 90 Tab*1 Sig: Take 1 Tablet by mouth every 8 hours as needed for Anxiety.Refused By: CONSUELO NIX for Refusal: Too s oon * Telephone Encounter - Consuelo Nix RN - 07/29/2023 3:26 PM EDT Refill request from patient (MyG) for Lorazepam 0.5mg. Medication last filled on 06/24/23 with 1 refills. Patient last seen on 05/24/23 with return appointment scheduled for NONE. Patient had 1 cancelled appointments and 0 NO SHOW appointments. MYG message sent for appt And refill left at pharmacy documented in this encounter Plan of Treatment Upcoming Encounters Date Type Specialty Care Team Description 08/02/2023 Telemedicine [facility] Home Sharmaine Johns PA-C [address] [place] [address] Aisha Gilliland, Community Health Tire Building Supervisor [address] [place] [address] [place] [address] 08/03/2023 Laboratory Laboratory Processing [facility] Mobile Home Draw [address] [place] [address] 08/04/2023 [facility] [address] [place] [address] 08/04/2023 Office Visit Infectious Disease Julieta Reyes MD [address] [place], [place] [id number] 01/07/2024 Office Visit Cardiology Saray Muhammad CRNP [address] [place] [address] Scheduled Procedures Name Priority Associated Diagnoses Date/Ti [...] 02/16/2022 LUNG CANCER SCREENING - USE SMARTSET 66979 Completed 2023, 03/16/2022, 08/24/2018, Additional history exists [...] Agent Relationshi p Communication Laura Gant Adult [facility] Health Tube Inspector resentative (appointed verbally by patient or by statute hierarchy) Darlene Gilbert Adult [facility] Health Tube Inspector resentative (appointed verbally by patient or by statute hierarchy) Care Teams Shredded Filler Cutter Operator Relationship Specialty Start Date End Date Roger Alexandra MD [address] [place] [address] PCP - General Family Medicine 12/29/19 documented as of this encounter
--- OUTSIDE RECORDS SUMMARY | 2023-11-16 19:31 | External Medical Summary | Summary of Care ---
Author Name Unknown Organization [facility] Address [address] [place] [address] Phone [phone] Care Team Providers Care Shoer Name Role Phone Roger Alexandra MD Primary Care Provider [phone] Reason for Visit * Reason Onset Date Comments Hospital Follow-Up 07/23/2023 Encounter Details Date Type Department Care Team Description 07/23/2023 Telephone General Internal Medicine [facility] [address] [place] [address] Roger Alexandra MD [address] [place] [address] Hospital Follow-Up Allergies Active Allergy Reactions Severity Noted Date [...] Each 0 2 Active Full Kit Nebulizer SetIndications: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 0 3 Active Nystatin 421935 UNIT/GM External Powder (Nyamyc) apply to affected area twice a day 60 g 1 06/26/202 3 Active Warfarin Sodium 5 MG Oral [...] before bedtime. 180 Tablet 3 3 Active Isosorbide Mononitrate ER 30 MG [...] 11 3 Active Vitamin D3 1.25 MG (37849 UT) Oral Capsule Take 1 Capsule by mouth once a week. 12 Capsule 0 3 023 Active ProAir HFA 108 (90 Base) MCG/ACT Inhalation Aerosol SolutionIndication s:Bronchitis, complicated Inhale 2 Puffs by mouth in the morning and 2 Puffs at noon and 2 Puffs in the evening and 2 Puffs before bedtime. 18 g 5 3 Active Cefuroxime Axetil 500 MG Oral Tablet (Ceftin) Take 1 Tablet by mouth in the morning and 1 Tablet before bedtime. 14 Tablet 0 3 023 Discontinued Nitrofurantoin Monohyd Macro 100 MG Oral Capsule [...] encounter Miscellaneous Notes * Telephone Encounter - West Way RN - 07/29/2023 8:56 AM EDT Yes, the patient still needs a pulmonary appointment. Thanks * Telephone Encounter - Susanna Storey - 07/28/2023 10:07 AM EDT Just clarifying if patient still needs pulmonary appt. Please advise. Thank you! * Telephone Encounter - West Way RN - 07/23/2023 12:48 PM EDT Patient evaluated by pulmonology while inpt at [facility], and it was recommended that an ENT referral for potential vocal cord dysfunction be considered. Thank you * Telephone Encounter - West Way RN - 07/23/2023 12:41 PM EDT Patient discharged from [facility] today, after treatment for COPD exac.and respiratory failure It is recommended that patient follow up with Pulmonology in 1-2 weeks. Scheduling reports the next opening is in October. Please assist patient with a sooner appointment if able. Thank you documented in this encounter Plan of Treatment Upcoming Encounters Date Type Specialty Care Team Description 08/02/2023 Telemedicine [facility] Sharmaine Johns PA-C [address] [place] [address] Aisha Gilliland, [address] [place] [address] 08/03/2023 Laboratory Laboratory Processing [facility] Mobile Home Draw [address] [place] [address] 08/04/2023 [facility] [address] [place] [address] 08/04/2023 Office Visit Infectious Disease Julieta Reyes MD [address] [place] [address] 01/07/2024 Office Visit Cardiology Saray Muhammad CRNP [address] [place] [address] Scheduled Procedures Name Priority Associated Diagnoses Date/Ti [...] 02/16/2022 LUNG CANCER SCREENING - USE SMARTSET 30626 Completed 2023, 03/16/2022, 08/24/2018, Additional history exists [...] patient or by statute hierarchy) Darlene Gilbert [facility] Health Talend Developer resentative (appointed verbally by patient or by statute hierarchy) Care Teams Shoer Relationship Specialty Start Date End Date Roger Alexandra MD [address] [facility] [place] [address] PCP - General Family Medicine 12/29/19 documented as of this encounter
--- OUTSIDE RECORDS SUMMARY | 2023-11-16 19:31 | External Medical Summary | Summary of Care ---
Author Name Unknown Organization [facility] Address [address] [place] [address] Phone [phone] Care Team Providers Care Chlorine Cell Tender Name Role Phone Roger Alexandra MD Primary Care Provider [phone] Reason for Visit * Reason Onset Date Comments case management 08/03/2023 Encounter Details Date Type Department Care Team Description 08/03/2023 Ceiling Installer Telephone Care Coordination [address] [place], [place] [id number] Saray Jones LSW [address] [place] [address] case management Allergies Active Allergy Reactions Severity Noted Date Comments Aspirin Unknown 12/12/2007 von Willebrand's disease Salicylates 03/01/2000 von Willebrand's disease documented as of this encounter (statuses as of 08/03/2023) Medications Medication Sig Dispensed Refills Start Date [...] (Feosol) 1 Tablet. 0 01/12/2023 Active Nystatin 996749 UNIT/GM External Powder (Nyamyc) apply to affected [...] 11 07/07/2023 Active Vitamin D3 1.25 MG (28610 UT) Oral Capsule Take 1 Capsule by [...] as of this encounter (statuses as of 08/03/2023) Active Problems Problem Noted Date Prediabetes 07/13/2023 [...] as of this encounter (statuses as of 08/03/2023) Resolved Problems Problem Noted Date Resolved Date [...] as of this encounter (statuses as of 08/03/2023) Immunizations Name Administration Dates Next Due H1N1 [...] * Telephone Encounter - PARVEZ Mason - 08/03/2023 11:55 AM EDT Images from the original note were not included. [facility]: [phone] - no answer; VM is full [phone]: attempted to call granddaughter. No answer; phone continues to ring Follow-up Routine Attempted Phone Call Fourth attempt Call Outcome Unable to Leave Message Plan To send letter [facility] Ceiling Installer (Pronouns: she, her, hers) Care Coordination Integration home aide documented in this encounter Plan of Treatment Upcoming Encounters Date Type Specialty Care Team Description 08/04/2023 [facility] [address] [place] [address] 08/04/2023 Office Visit Infectious Disease Julieta Reyes MD [address] [place] [address] 08/16/2023 Telemedicine [facility] Sharmaine Johns PA-C [address] [place] [address] Kim Carrizales, Community Health Inverform Machine Operator [address] [place] [address] 01/07/2024 Office Visit Cardiology Saray Muhammad CRNP [address] [place] [address] Scheduled Procedures Name Priority Associated Diagnoses Date/Ti [...] 02/16/2022 LUNG CANCER SCREENING - USE SMARTSET 04335 Completed 2023, 03/16/2022, 08/24/2018, Additional history exists [...] Healthcare Agent Relationshi p Communication Laura Gant [facility] Lab Nurse resentative (appointed verbally by patient or by statute hierarchy) Darlene Gilbert [facility] Health Lab Nurse resentative (appointed verbally by patient or by statute hierarchy) Care Teams Chlorine Cell Tender Relationship Specialty Start Date End Date Roger Alexandra MD [address] [place] [address] PCP - General Family Medicine 12/29/19 documented as of this encounter
--- OUTSIDE RECORDS SUMMARY | 2023-11-16 19:32 | External Medical Summary | Summary of Care ---
Author Name Unknown Organization [facility] Address [address] [facility] [address] Phone [phone] Care Team Providers Care Patient Support Representative Name Role Phone Roger Alexandra MD Primary Care Provider [phone] Reason for Visit * Reason Comments Dosage Adjustment Via Phone (anticoag Cl inic) Encounter Details Date Type Department Care Team Description 07/26/2023 Anticoagulation Pharmacy Call Center [address] [place] [address] [facility] [address] [facility] [address] Paroxysmal atrial fibrillation (HCC)* Allergies Active Allergy Reactions Severity Noted Date Comments Aspirin Unknown 12/12/2007 von Willebrand's disease Salicylates 03/01/2000 von Willebrand's disease documented as of this encounter (statuses as of 07/26/2023) Medications Medication Sig Dispensed Refills Start Date [...] (Feosol) 1 Tablet. 0 01/12/2023 Active Nystatin 333021 UNIT/GM External Powder (Nyamyc) apply to affected [...] With food.. 20 Capsule 0 06/24/2023 Active Isosorbide Mononitrate ER 30 MG Oral [...] 11 07/07/2023 Active Vitamin D3 1.25 MG (40352 UT) Oral Capsule Take 1 Capsule by [...] as of this encounter (statuses as of 07/26/2023) Active Problems Problem Noted Date Prediabetes 07/13/2023 [...] as of this encounter (statuses as of 07/26/2023) Resolved Problems Problem Noted Date Resolved Date [...] as of this encounter (statuses as of 07/26/2023) Immunizations Name Administration Dates Next Due H1N1 [...] this encounter Progress Notes * Dottie Eli, [facility] - 07/26/2023 2:01 PM EDT Medication Therapy Disease Management - Anticoagulation Patient: Kimberly Hung Enoch | : 1960 Subjective Contacts Type Contact Phone/Fax 07/26/2023 03:39 PM EDT Phone (Outgoing) Enoch Kimberly Hung (Self) [phone] (M) Patient-Reported Symptoms: Patient Findings Positives: Hospital admission (Admitted to [facility] 07/15 - 07/23 due to acute on chronic hypoxic and hypercarbic respiratory failure, acute COPD exacerbation & acute on chronic diastolic HF exacerbation) Negatives: Signs/symptoms of bleeding, Change in health, Missed doses, Extra doses, Change in medications, Change in diet/appetite, Bruising Objective Current Warfarin Dose As of 07/26/2023 Warfarin maintenance plan: 2.5 mg (5 mg x 0.5) every Mon, Wed, Fri; 5 mg (5 mg x 1) all other days INR Result As of 07/26/2023 INR goal: 2.0-3.0 INR used for dosin.3 (07/23/2023) Assessment & Plan Warfarin Plan As of 07/26/2023 Full warfarin instructions: 2.5 mg every Mon, Wed, Fri; 5 mg all other days No change documented: Dottie Eli RPh Next INR check: 08/03/2023 Repeat PT/INR in 1 week(s) Weekly dose: not changed Additional Dosing Information: Description GML Also sent MyG after trying to call Dottie Eli RPh Clinical Pharmacist 07/26/2023, 2:01 PM documented in this encounter Plan of Treatment Upcoming Encounters Date Type Specialty Care Team Description 07/27/2023 Office Visit Family Medicine Roger Alexandra MD [address] [place] [address] 08/02/2023 Telemedicine [facility] Sharmaine Johns PA-C [address] [place] [address] Aisha Gilliland [address] [place] [phone] 08/04/2023 [facility] [address] [place] [address] 08/04/2023 Office Visit Infectious Disease Julieta Reyes MD [address] [place] [address] 01/07/2024 Office Visit Cardiology Saray Muhammad CRNP [address] [place] [address] Scheduled Procedures Name Priority Associated Diagnoses Date/Ti [...] 02/16/2022 LUNG CANCER SCREENING - USE SMARTSET 00790 Completed 2023, 03/16/2022, 08/24/2018, Additional history exists [...] Date/Time Associated Diagnosis Comments OUTSIDE LAB-PT/INR Routine 07/23/2023 documented in this encounter Results * OUTSIDE LAB-PT/INR (07/23/2023) INR-OUTSIDE LAB 2.3 07/23/2023 History Per Patient LABORATORY documented in this encounter Visit Diagnoses Diagnosis Paroxysmal atrial fibrillation (HCC)- Primary Atrial fibrillation documented in this encounter Care Teams Patient Support Representative Relationship Specialty Start Date End Date Roger Alexandra MD [address] [place] [address] PCP - General Family Medicine 12/29/19 documented as of this encounter"
--- OUTSIDE RECORDS SUMMARY | 2023-11-16 19:32 | External Medical Summary | Summary of Care ---
Author Name Unknown Organization [facility] Address [address] [place] [address] Phone [phone] Care Team Providers Care Can Conveyor Feeder Name Role Phone Roger Alexandra MD Primary Care Provider [phone] Reason for Referral * Ancillary Services (Within 10 days (routine)) - Authorized Specialty Diagnoses / Procedures Referred By Contac t Referred To Contact HOME CARE / Palliative Medicine Diagnoses Chronic respiratory failure with hypoxia (HCC) Roger Alexandra MD [address] [place] [address] Referral ID Status Reason Start Date Expiration Date Visits Requested Visits Authorized [id number] Authorized Ancillary Services Required 07/27/2023 999 999 Question Answer Referral Priority Within 10 days (routine) Reason for Visit * Reason Onset Date Comments Hospital Follow-Up Pt here with granddaughter for hospital follow up, states she had a fall earlier today and 911 was called. Pt did not go back to hospital, c/o R foot pain. Hospital Follow-Up 07/27/2023 Encounter Details Date Type Department Care Team Description 07/27/2023 Office Visit Family Practice [facility] [address] [address] Roger Alexandra MD [address] [place] [address] (work) Hospital discharge follow-up*; Chronic respiratory failure with hypoxia (HCC) Allergies Active Allergy Reactions Severity Noted Date Comments Aspirin Unknown 12/12/2007 von Willebrand's disease Salicylates 03/01/2000 von Willebrand's disease documented as of this encounter (statuses as of 07/27/2023) Medications Medication Sig Dispensed Refills Start Date End Date Status oxygen IN GASIndications:Oil Transport Driver 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 respiratory failure (HCC),COPD, group D, by GOLD 2017 classification ([facility]) Use 2 LPM at rest, [...] ([facility]),Chronic hypoxemic respiratory failure (HCC) Use with nebulized meds 1 Each 0 2 Active Full Kit Nebulizer SetIndications:COPD , group D, by GOLD 2017 classification ([facility]),Chronic hypoxemic respiratory failure (HCC) Use [...] (Feosol) 1 Tablet. 0 3 Active Nystatin 306994 UNIT/GM External Powder (Nyamyc) apply to affected [...] 11 3 Active Vitamin D3 1.25 MG (48195 UT) Oral Capsule Take 1 Capsule by mouth once a week. 12 Capsule 0 3 10/11/20 23 Active ProAir HFA 108 (90 Base) MCG/ACT Inhalation Aerosol SolutionIndications :Bronchitis, complicated Inhale 2 Puffs by mouth in the morning and 2 Puffs at noon and 2 Puffs in the evening and 2 Puffs before bedtime. 18 g 5 3 Active Acetaminophen-Codei ne 300-30 MG Oral TabletIndications:C hronic bilateral low back pain without sciatica Take 1 Tablet by mouth every 6 hours as needed for Pain, Moderate. 120 Tablet 0 3 Active Cefuroxime Axetil 500 MG Oral Tablet (Ceftin) Take 1 Tablet by mouth in the morning and 1 Tablet before bedtime. 14 Tablet 0 3 07/27/20 23 Discontinued Nitrofurantoin Monohyd Macro 100 MG Oral Capsule (Macrobid) Take 1 Capsule by mouth in the morning and 1 Capsule before bedtime. With food.. 20 Capsule 0 3 07/27/20 23 Discontinued Hospital, Clinic, or Other Facility [...] as of this encounter (statuses as of 07/27/2023) Active Problems Problem Noted Date Prediabetes 07/13/2023 [...] as of this encounter (statuses as of 07/27/2023) Resolved Problems Problem Noted Date Resolved Date [...] as of this encounter (statuses as of 07/27/2023) Immunizations Name Administration Dates Next Due H1N1 [...] Sign Reading Time Taken Comments Blood Pressure 122/68 07/27/2023 3:27 PM EDT Pulse 116 07/27/2023 3:27 PM EDT Temperature 37.3 C (99.1 F) 07/27/2023 3:27 PM ED T Respiratory Rate 18 07/27/2023 3:27 PM EDT Oxygen Saturation 91% 07/27/2023 3:27 PM EDT 4 liters Inhaled Oxygen Concentration - - Weight 144.2 kg (318 lb) 07/27/2023 3:27 PM EDT pt reports Height 157.5 cm (5' 2") 07/27/2023 3:27 PM EDT Body Mass Index 58.16 07/27/2023 3:27 PM EDT documented in this encounter Progress Notes * Roger Alexandra MD - 07/27/2023 3:55 PM EDT SUBJECTIVE: Kimberly Kendall is a 63 year old female. Chief Complaint Patient presents with Hospital Follow-Up Pt here with granddaughter for hospital follow up, states she had a fall earlier today and 911 was called. Pt did not go back to hospital, c/o R foot pain. Hospital Follow-Up Recent Admission: Patient was recently admitted to [facility]. Discharge report received and reviewed. HPI: This is a functionally immobile, super obese 63 year old female with chronic hypoxic respiratory failure here today with her granddaughter, who is also her psychiatric nurse practitioner, for a hospital follow up. She was admitted for acute on chronic respiratory failure. Refused PT while hospitalized. At this point she really only gets out of bed to use the bathroom. We have case management heavily involved. She is noncompliant. At this point we've exhausted all options for her in terms of medical treatment, and will start theprocess of getting hospice/palliative care involved. Patient Active Problem List Diagnosis Code Irritable bowel syndrome with diarrhea K58.0 Depression with anxiety F41.8 Obstructive sleep apnea G47.33 Von Willebrand disease ([facility]) D68.00 Idiopathic cardiomyopathy ([facility]) I42.9 Acquired hypothyroidism E03.9 Super obese E66.9 Chronic bilateral low back pain without sciatica M54.50, G89.29 Paroxysmal atrial fibrillation ([facility]) I48.0 History of multiple strokes Z86.73 Chronic diastolic CHF (congestive heart failure) ([facility]) I50.32 PTSD (post-traumatic stress disorder) F43.10 COPD, group D, by GOLD 2017 classification ([facility]) J44.9 Chronic respiratory failure with hypoxia ([facility]) J96.11 History of narcotic addiction ([facility]) F11.21 Decreased functional mobility R26.89 Oxygen dependent Z99.81 Prediabetes R73.03 Current Outpatient Medications Medication Sig Dispense Refill oxygen IN GAS Use 2 LPM at rest, 4 LPM with exertion and with sleep. (Patient taking differently: Use 4 LPM at rest, 5 LPM with exertion and 4 LPM with sleep.) 1 Each 0 Nebulizer Device Use with nebulized meds 1 Each 0 Albuterol Sulfate 0.63 MG/3ML [...] MG Oral Tablet (Feosol) 1 Tablet. Nystatin 246476 UNIT/GM External Powder ([facility]) apply to affected area twice [...] 30 Tablet 11 Vitamin D3 1.25 MG (24421 UT) Oral Capsule Take 1 Capsule by [...] needed for Pain, Moderate. 120 Tablet 0 Disposable Brief X-Large Attends X-Large Super Absorb Underwear 32 Each 2 Full Kit Nebulizer Set Use with nebulizer 1 Each 0 Current Facility-Administered Medications Medication Dose Route Frequency Provider Last Rate Last Admin Albuterol Sulfate (Proventil) (2.5 MG/3ML) 0.083% inhalation solution 2.5 mg 2.5 mg Nebulizer PRSeferino Quintero MD 2.5 mg at 03/09/23 1107 Albuterol Sulfate (Proventil) (5 MG/ML) 0.5% *conc* inhalation solution 2.5 mg 2.5 mg Nebulizer Terrance Quintero MD Current and discharge medications have been reconciled. Review of patient's allergies indicates: Allergen Reactions Aspirin Unknown von Willebrand's disease Salicylates von Willebrand's disease OBJECTIVE: BP 122/68 (BP Site: Left Arm, BP Position: Sitting, BP Cuff Size: Large) | Pulse 116 | Temp 37.3 C (99.1 F) (Tympanic) | Resp 18 | Ht 1.575 m (5' 2") | Wt (!) 144.2 kg (318 lb) Comment: pt reports | SpO2 91% Comment: 4 liters | BMI 58.16 kg/m | BSA 2.51 m PHYSICAL EXAM: Gen: morbidly obese, in wheelchair, wearing 4L O2 via NC ASSESSMENT: Hospital discharge follow-up (Primary) - DISCH MED RECON CUR MED LIS Chronic respiratory failure with hypoxia (HCC) - HOSPICE REFERRAL OP Follow Up: Return if symptoms worsen or fail to improve. PLAN: Continue present medication(s): Follow up as needed. Roger Alexandra MD documented in this encounter Plan of Treatment Upcoming Encounters Date Type Specialty Care Team Description 08/02/2023 Telemedicine [facility] Sharmaine Johns PA-Roz [address] [place], [place] [id number] Aisha Gilliland, Community Health Mold Carrier [address] [place] [address] [place] [address] 08/03/2023 Laboratory Laboratory Processing [facility], [facility] Mobile Home Draw [address] [place] [address] 08/04/2023 [facility] [address] [place] [address] 08/04/2023 Office Visit Infectious Disease Julieta Reyes MD [address] [place] [address] 01/07/2024 Office Visit Cardiology Saray Muhammad CRNP [address] [place] [address] Scheduled Procedures Name Priority Associated Diagnoses Date/Ti me COLONOSCOPY FLEXIBLE PROXIMA L DIAGNOSTIC Recall History of colonic polyps Scheduled Referrals Name Type Priority Associated Diagnoses Orde r Schedule HOSPICE REFERRAL OP Referral Within 10 da ys (routine) Chronic respiratory failure with hypoxia (HCC) Ordered: 07/27/2023 Health Maintenance Due Date Last Done Comments [...] 02/16/2022 LUNG CANCER SCREENING - USE SMARTSET 82034 Completed 2023, 03/16/2022, 08/24/2018, Additional history exists [...] discharge follow-up- Primary Other follow-up examination Chronic respiratory failure with hypoxia (HCC) Chronic respiratory failure documented in this encounter Care Teams Can Conveyor Feeder Relationship Specialty Start Date End Date Roger Alexandra MD [address] [place] [address] PCP - General Family Medicine 12/29/19 documented as of this encounter
--- OUTSIDE RECORDS SUMMARY | 2023-11-16 19:32 | External Medical Summary | Summary of Care ---
Author Name Unknown Organization [facility] [address] [facility] [address] Phone [phone] Care Team Providers Care Carbon Paper Interleafer Name Role Phone Roger Alexandra MD Primary Care Provider [phone] Reason for Visit * Reason Onset Date Comments case management 07/07/2023 Encounter Details Date Type Department Care Team Description 07/07/2023 School Business Administrator Telephone Family Practice [facility] [address] [place] [address] Yara Morris, director account management Allergies Active Allergy Reactions Severity Noted [...] (Feosol) 1 Tablet. 0 01/12/2023 Active Nystatin 739843 UNIT/GM External Powder (Nyamyc) apply to affected [...] diastolic CHF (congestive heart failure) ([facility]) Take 1 Tablet by mouth in the [...] by GOLD 2017 classification ([facility]) 2.5 mg NEBULIZER PRN 03/03/2023 03/02/2024 Acti [...] Team Description 07/27/2023 Office Visit Family Medicine Rgoer Alexandra MD [address] [place] [address] 08/02/2023 Telemedicine [facility] Sharmaine Johns PA-C [address] [place] [address] Aisha Gilliland, Community Health Nurse Tech [address] [place] [address] [place] [address] 08/04/2023 [facility] [address] [place] [address] 08/04/2023 Office Visit Infectious Disease Julieta Reyes MD [address] [place] [address] 01/07/2024 Office Visit Cardiology Saray Muhammad CRNP [address] [place] [address] Scheduled Procedures Name Priority Associated Diagnoses Date/Ti [...] 02/16/2022 LUNG CANCER SCREENING - USE SMARTSET [id number] Completed 2023, 03/16/2022, 08/24/2018, Additional history exists [...] filedocumented as of this encounter Care Teams Carbon Paper Interleafer Relationship Specialty Start Date End Date Roger Alexandra MD [address] [place] [address] PCP - General Family Medicine 12/29/19 documented as of this encounter
--- OUTSIDE RECORDS SUMMARY | 2023-11-16 19:32 | External Medical Summary | Summary of Care ---
Author Name Unknown Organization [facility] Address [address] [place] [address] Phone [phone] Care Team Providers Care Ticket Writer Name Role Phone Roger Alexandra MD Primary Care Provider [phone] Reason for Visit * Reason Onset Date Comments Appointment 07/27/2023 Encounter Details Date Type Department Care Team Description 07/27/2023 Telephone [facility] [address] [place] [address] Services, Scheduling [address] [place] [address] Appointment (//) Allergies Active Allergy Reactions Severity [...] (Feosol) 1 Tablet. 0 01/12/2023 Active Nystatin 645732 UNIT/GM External Powder (Nyamyc) apply to affected [...] 11 07/07/2023 Active Vitamin D3 1.25 MG (84283 UT) Oral Capsule Take 1 Capsule by [...] * Telephone Encounter - RUFINA Lozoya - 07/27/2023 4:14 PM EDT Call to pt to confirm return kaco telemed for 08/02 at 3pm, no asnwer and vm is full, called son andLMOM w/ appt details documented in this encounter Plan of Treatment Upcoming Encounters Date Type Specialty Care Team Description 08/02/2023 Telemedicine [facility] Sharmaine Johns PA-C [address] [place] [address] Aisha Gilliland, Community Health Material Requirements Planning Manager [address] [place] [address] [place] [address] 08/03/2023 Laboratory Laboratory Processing [facility], [facility] Mobile Home Draw [address] [place] [address] 08/04/2023 [facility] [address] [place] [address] 08/04/2023 Office Visit Infectious Disease Julieta Reyes MD [address] [place] [address] 01/07/2024 Office Visit Cardiology Saray Muhammad CRNP [address] [place] [address] Scheduled Procedures Name Priority Associated Diagnoses Date/Ti [...] 02/16/2022 LUNG CANCER SCREENING - USE SMARTSET [id number] Completed 2023, 03/16/2022, 08/24/2018, Additional history exists [...] filedocumented as of this encounter Care Teams Ticket Writer Relationship Specialty Start Date End Date Roger Alexandra MD [address] [place] [address] PCP - General Family Medicine 12/29/19 documented as of this encounter
--- OUTSIDE RECORDS SUMMARY | 2023-11-16 19:32 | External Medical Summary | Summary of Care ---
Author Name Unknown Organization [facility] Address [address] [place] [address] Phone [phone] Care Team Providers Care Hot Box Checker Name Role Phone Roger Alexandra MD Primary Care Provider [phone] Reason for Visit * Reason Onset Date Comments Hospital Follow-Up 07/23/2023 Encounter Details Date Type Department Care Team Description 07/23/2023 Telephone General Internal Medicine [facility] [address] [place] [address] Roger Alexandra MD [address] [place] [...] Each 0 2 Active Full Kit Nebulizer SetIndications:CITY BAILIFF D, group D, by GOLD 2017 classification [...] (Feosol) 1 Tablet. 0 3 Active Nystatin 043154 UNIT/GM External Powder (Nyamyc) apply to affected [...] 11 3 Active Vitamin D3 1.25 MG (46658 UT) Oral Capsule Take 1 Capsule by [...] Notes * Telephone Encounter - Susanna Storey - 07/28/2023 10:07 AM EDT Just clarifying if patient still needs pulmonary appt. Please advise. Thank you! * Telephone Encounter - West Way RN - 07/23/2023 12:48 PM EDT Patient evaluated by pulmonology while inpt at [facility], and it was recommended that an ENT referral for potential vocal cord dysfunction be considered. Thank you * Telephone Encounter - West Way RN - 07/23/2023 12:41 PM EDT Patient discharged from [facility] today, after treatment for COPD exac.and respiratory failure It is recommended that patient follow up with Pulmonology in 1-2 weeks. Scheduling reports the next opening is in October. Please assist patient with a sooner appointment if able. Thank you documented in this encounter Plan of Treatment Upcoming Encounters Date Type Specialty Care Team Description 08/02/2023 Telemedicine [facility] Sharmaine Johns PA-C [address] [place], [place] [id number] Aisha Gilliland, [address] [place] [address] 08/03/2023 Laboratory Laboratory Processing [facility], [facility] Mobile Home Draw [address] [place], [place] [id number] 08/04/2023 [facility] [address] [place] [address] 08/04/2023 Office Visit Infectious Disease Julieta Reyes MD [address] [place] [address] 01/07/2024 Office Visit Cardiology Saray Muhammad CRNP [address] [place] [address] Scheduled Procedures Name Priority Associated Diagnoses Date/Ti [...] 02/16/2022 LUNG CANCER SCREENING - USE SMARTSET 29820 Completed 2023, 03/16/2022, 08/24/2018, Additional history exists [...] Agent Relationshi p Communication Laura Gant [facility] Health Straight Tooth Gear Generator Operator resentative (appointed verbally by patient or by statute hierarchy) Darlene Michaelyder [facility] Health Straight Tooth Gear Generator Operator resentative (appointed verbally by patient or by statute hierarchy) Care Teams Hot Box Checker Relationship Specialty Start Date End Date Roger Alexandra MD [address] [place] [address] PCP - General Family Medicine 12/29/19 documented as of this encounter
--- OUTSIDE RECORDS SUMMARY | 2023-11-16 19:32 | External Medical Summary | Summary of Care ---
Author Name Unknown Organization [facility] Address [address] [facility] [place] [address] Phone [phone] Care Team Providers Care Plant Changer Name Role Phone Roger Alexandra MD Primary Care Provider [phone] Reason for Visit * Reason Onset Date Comments Advice 07/26/2023 Encounter Details Date Type Department Care Team Description 07/26/2023 Telephone Family Practice [facility] [address] [place] [address] Roger Alexandra MD [address] [place] [address] Advice Allergies Active Allergy Reactions Severity Noted [...] (Feosol) 1 Tablet. 0 01/12/2023 Active Nystatin 124252 UNIT/GM External Powder (Nyamyc) apply to affected [...] 11 07/07/2023 Active Vitamin D3 1.25 MG (41153 UT) Oral Capsule Take 1 Capsule by [...] Telephone Encounter - Yara Morris RN - 07/26/2023 2:42 PM EDT I spoke with patient, She will keep appointment as scheduled for tomorrow. * Telephone Encounter - RUFINA Anderson - 07/26/2023 11:03 AM EDT Pt would like earlier appt in the day if possible for 07/27/23 - [phone] Pt was also asking if her Acetiminophen was called in to pharmacy - saw the request but not the actual call in - warm transferred to nurse Sales at clinic documented in this encounter Plan of Treatment Upcoming Encounters Date Type Specialty Care Team Description 07/27/2023 Office Visit Family Medicine Roger Alexandra MD [address] [facility] [place] [address] 08/02/2023 Telemedicine [facility] Sharmaine Johns PA-Roz [address] [place] [address] Aisha Gilliland, Community Health Chemistry Intern [address] [place] [address] [place] [address] 08/04/2023 Office Visit Infectious Disease Julieta Reyes MD [address], [place] [address] 01/07/2024 Office Visit Cardiology Saray Muhammad CRNP [address] [place] [address] Scheduled Procedures Name Priority Associated Diagnoses Date/Ti [...] 02/16/2022 LUNG CANCER SCREENING - USE SMARTSET 37411 Completed 2023, 03/16/2022, 08/24/2018, Additional history exists [...] filedocumented as of this encounter Care Teams Plant Changer Relationship Specialty Start Date End Date Roger Alexandra MD [address] [place] [address] PCP - General Family Medicine 12/29/19 documented as of this encounter
--- OUTSIDE RECORDS SUMMARY | 2023-11-16 19:32 | External Medical Summary | Summary of Care ---
Author Name Unknown Organization [facility] Address [address] [place] [facility] [place] [place] [address] Phone [phone] Care Team Providers Care Atomic Physics Teacher Name Role Phone Roger Alexandra MD Primary Care Provider [phone] Reason for Visit * Reason Onset Date Comments case management 07/26/2023 Encounter Details Date Type Department Care Team Description 07/26/2023 Lining Vamper Telephone Family Practice [facility] [address] [place] [address] Yara Morris, program management specialist Allergies Active Allergy Reactions Severity [...] (Feosol) 1 Tablet. 0 01/12/2023 Active Nystatin 860741 UNIT/GM External Powder (Nyamyc) apply to affected [...] (Lasix)Indications:C hronic diastolic CHF (congestive heart failure) ([facility]) Take 1 Tablet by mouth in the [...] 11 07/07/2023 Active Vitamin D3 1.25 MG (26606 UT) Oral Capsule Take 1 Capsule by [...] 2017 classification ([facility]) 2.5 mg NEBULIZER PRN 03/03/2023 03/02/2024 Acti ve Albuterol Sulfate (Proventil) (5 MG/ML) 0.5% *conc* inhalation solution 2.5 mgIndications:COPD, group D, by GOLD 2017 classification ([facility]) 2.5 mg NEBULIZER PRN 03/03/2023 03/02/2024 Acti [...] Encounter - Yara Morris RN - 07/26/2023 2:21 PM EDT RAYSHAWN Comp Lining Vamper Progress Note: Date: 07/26/23 Assigned Patient Tier: 2 Connected with patient via phone. Verified patient name/. Advised patient that call is being recorded for quality and training purposes. Assessment: Pt. noted the following: She has appointment tomorrow. She will keep the appt, she will bring discharge med list. She is on a cream, continuing 80mg of lasix. She has home health coming in, cannot remember what agency. Continuing 4L O2 continuously. Was getting insulin while in the hospital, was also on steroids while inpatient. She is no longer on either of these. Did you receive an alert for an annual wellness visit? No Is this call for a hospital, snf or rehab facility discharge to home? Yes [facility] 07/15 -07/23/23 Medication Reconciliation: Medication Reconciliation completed: patient to bring to appointment tomorrow Review of Current goals: Discussed the following patient-centered CM goals with the patient during this discussion: -ADHERENCE: Treatment plan -Status: At Risk patient declines nebulizer medications, and Bipap. -COPD: Achieve successful management of COPD -Status: At Risk due to non-adherence to regimen. -HEART FAILURE: Achieve successful management of heart failure. -Status: On Track taking diuretics as directed. COPD Patient: YES Breathing: Breathing at Baseline CHF Patient: YES Swelling: at baseline CM Plan: Reviewed 3 Red Flags with patient. Advised to call CM with any of the following: Red Flag 1: Wheezing/coughing, Red Flag 2: fever/chills, or Red Flag 3: increased edema/weight gain Remote Patient Monitoring: At this time, RPM not offered/considered for patient due to patient did not tolerate this in the past. Plan for Future Contacts: Plan to follow up within 1 week to check progress on the following goals/needs cardio-pulmonary status. Planned contacts from the following parties will occur this week: PCP office visit as additional contacts per workflow. Advancement/Closure Plan: Advance patient to following higher tier. Will arrange the following advanced interventions if necessary: change to tier 2. Patient provided CM contact information and encouraged [...] Medicine Roger Alexandra MD [address] [place] [address] 08/02/2023 Telemedicine [facility] Sharmaine Johns PA-Roz [address] [place] [address] Aisha Gilliland, [address] [place] [address] 08/04/2023 Office Visit Infectious Disease Julieta Reyes MD [address] [place] [address] 01/07/2024 Office Visit Cardiology Saray Muhammad CRNP [address] [place] [address] Scheduled Procedures Name Priority Associated Diagnoses Date/Ti [...] 02/16/2022 LUNG CANCER SCREENING - USE SMARTSET 25672 Completed 2023, 03/16/2022, 08/24/2018, Additional history exists [...] filedocumented as of this encounter Care Teams Atomic Physics Teacher Relationship Specialty Start Date End Date Roger Alexandra MD [address] [place] [address] PCP - General Family Medicine 12/29/19 documented as of this encounter
--- OUTSIDE RECORDS SUMMARY | 2023-11-16 19:32 | External Medical Summary | Summary of Care ---
Author Name Unknown Organization [facility] Address [address] [facility] [place] [address] Phone [phone] Care Team Providers Care Chief Technician X Ray Name Role Phone Jeevan Mclean MD Primary Care Provider [phone] [phone] Reason for Visit * Reason Onset Date Comments Medication Refill 07/25/2023 Encounter Details Date Type Department Care Team Description 07/25/2023 Refill Family Practice [facility] [address] [place] [address] Jeevan Mclean MD [address] [place] [address] Chronic bilateral low back pain without sciatica Allergies Active Allergy Reactions Severity Noted Date Comments Aspirin Unknown 12/12/2007 von Willebrand's disease Salicylates 03/01/2000 von Willebrand's disease documented as of this encounter (statuses as of 07/26/2023) Medications Medication Sig Dispensed Refills Start Date End Date Status oxygen IN GASIndications:Street Photographer 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 respiratory failure (HCC),COPD, group D, [...] OPD, group D, by GOLD 2017 classification ([facility]),Chronic hypoxemic respiratory failure ([facility]) Use with nebulized meds 1 Each 0 09/16/2022 Active Full Kit Nebulizer SetIndications:COPD , group D, by GOLD 2017 classification ([facility] [...] (Feosol) 1 Tablet. 0 01/12/2023 Active Nystatin 788031 UNIT/GM External Powder (Nyamyc) apply to affected [...] 11 07/07/2023 Active Vitamin D3 1.25 MG (26169 UT) Oral Capsule Take 1 Capsule by [...] Pain, Moderate. 120 Tablet 0 07/26/2023 Active Acetaminophen-Codei ne 300-30 MG Oral TabletIndications:C hronic bilateral low back pain without sciatica Take 1 Tablet by mouth every 6 hours as needed for Pain, Moderate. 120 Tablet 0 06/25/2023 3 Discontinu ed(Refill) Hospital, Clinic, or Other [...] Telephone Encounter - Jeevan Mclean MD - 07/26/2023 1:25 PM EDTSigned Prescriptions: Disp Refills Acetaminophen-Codeine 300-30 MG Oral Pyfioq263 Ta*0 Sig: Take 1 Tablet by mouth every 6 hours as needed for Pain, Moderate. Authorizing Provider: JEEVAN MCLEAN * Telephone Encounter - Mónica Kurtz LPN - 07/26/2023 11:12 AM EDT Provider to address: MED REFILL. Patient is out. Reason for Call: Medication Refill Contact: Telephone Call Contact Type: Medication Outcome: Pending Prescriptions: Disp Refills Acetaminophen-Codeine 300-30 MG Oral Tabl*120 Ta*0 Sig: Take 1 Tablet by mouth every 6 hours as needed for Pain, Moderate. Last Visit: 04/20/2023 (in office), 12/16/2022 (telemedicine) Next Visit: 07/27/2023 Last date the medication was ordered: 06/25/23 Patient Active Problem List Diagnosis Code Irritable bowel syndrome with diarrhea K58.0 Medical home patient encounter Z00.8 Depression with anxiety F41.8 Obstructive sleep apnea G47.33 Von Willebrand disease ([facility]) D68.00 Idiopathic cardiomyopathy ([facility]) I42.9 Acquired hypothyroidism E03.9 Super obese E66.9 Chronic bilateral low back pain without sciatica M54.50, G89.29 Paroxysmal atrial fibrillation ([facility]) I48.0 History of multiple strokes Z86.73 Chronic diastolic CHF (congestive heart failure) ([facility]) I50.32 PTSD (post-traumatic stress disorder) F43.10 COPD, group D, by GOLD 2017 classification ([facility]) J44.9 Chronic hypoxemic respiratory failure ([facility]) J96.11 History of narcotic addiction ([facility]) F11.21 Decreased functional mobility R26.89 Oxygen dependent Z99.81 Prediabetes R73.03 Labs: Lab Results Component Value Date/Time CREATININE - [facility] 0.7 07/12/2023 07:01 AM CREATININE - [facility] 0.7 10/17/2020 03:40 PM CREATININE NARESH 252 03/08/2014 10:22 AM CREATININE, [facility] URINE-CAT 42 08/13/2011 11:08 AM CREATININE-OUTSIDE LAB 0.77 11/21/2021 12:00 AM Lab Results Component Value Date/Time POTASSIUM - [facility] 4.2 07/12/2023 07:01 AM POTASSIUM - [facility] 4.6 10/17/2020 03:40 PM POTASSIUM-OUTSIDE LAB 2.8 (A) 11/21/2021 12:00 AM Lab Results Component Value Date/Time TSH - [facility] 2.32 07/12/2023 07:01 AM TSH - [facility] 0.66 12/29/2019 10:22 AM Lab Results Component Value Date/Time LDL (CALCULATED)-OUTSIDE LAB 99 09/25/2015 12:00 AM LDL CHOLESTEROL (CALCULATED) - [facility] 131 (H) 03/09/2023 12:12 PM LDL CHOLESTEROL (CALCULATED) - [facility] 123 05/01/2011 [...] A1C - [facility] 6.0 01/10/1999 11:30 AM Total Time including non face to face (minutes): 5 documented in this encounter Plan of Treatment Upcoming Encounters Date Type Specialty Care Team Description 07/27/2023 Office Visit Family Medicine Jeevan Mclean MD [address] [place] [address] 08/02/2023 Telemedicine [facility] Sharmaine Johns PA-C [address] [place] [address] Aisha Gilliland, Community Health Slasher Tender Helper [address] [place] [address] [place] [address] 08/04/2023 Office Visit Infectious Disease Julieta Reyes MD [address] [facility] [place] [address] 01/07/2024 Office Visit Cardiology Saray Muhammad CRNP [address] [place] [address] Scheduled Procedures Name Priority Associated Diagnoses Date/Ti [...] 02/16/2022 LUNG CANCER SCREENING - USE SMARTSET 63166 Completed 2023, 03/16/2022, 08/24/2018, Additional history exists [...] sciatica documented in this encounter Care Teams Chief Technician X Ray Relationship Specialty Start Date End Date Jeevan Mclean MD [address] [place] [address] PCP - General Family Medicine 12/29/19 documented as of this encounter
--- OUTSIDE RECORDS SUMMARY | 2023-11-16 19:32 | External Medical Summary | Summary of Care ---
Author Name Unknown Organization [facility] [address] [facility] [address] Phone [phone] Care Team Providers Care First Cook Name Role Phone Roger Alexandra MD Primary Care Provider [phone] Reason for Visit * Reason Comments case management Encounter Details Date Type Department Care Team Description 07/27/2023 Box StackerSupervisor Sterile Processing Practice [facility] [address] [place] [address] Yara Morris, concrete stone finisher care planning/counseling discussion* Allergies Active Allergy Reactions Severity Noted Date [...] (Feosol) 1 Tablet. 0 01/12/2023 Active Nystatin 159462 UNIT/GM External Powder (Nyamyc) apply to affected [...] heart failure) ([facility]) Take 1 Tablet by mouth in the [...] 11 07/07/2023 Active Vitamin D3 1.25 MG (34879 UT) Oral Capsule Take 1 Capsule by [...] Progress Notes * Yara Morris RN - 07/27/2023 4:46 PM EDT Box Stacker Progress Note: Date: 07/27/23 Assigned Patient Tier: 2 Connected with patient via office visit. Verified patient name/. Advised patient that call is being recorded for quality and training purposes. Assessment: Pt. noted the following: She does not want to go back to the hospital. She had a fall today in the bathroom, skin tear noted to R great toe. Cleaned and applied telfa and tubigrip sock. Slight edema to BLE. Patient on oxygen at 4LPM. O2 sats in the 84-8% on 4L. She reports anxiety is is high recently. Grandabiola Sanchez present, is caregiver M-F 8AM-4PM. Sons stop by on weekend to help if needed. Kimberly ambulates to the bathroom, but primarily spends her time in a chair or bed. Granddaughter helps with ADLs and iADLs. Denies SDOH needs, but states would like to find a less expensive rental. Works with psychiatry, PHQ-2 score is 17. After discussion with Dr. Alexandra, patient states she is willing to use nebulizer treatment. She did not like use of this in the past due to it causing burning sensation in her chest, and increases anxiety. Did discuss that jittery/increased heart rate is atemporary side effect of the nebulizer. Has been having some diarrhea. Ongoing dysuria, had cellulitis of groin, felt the nystatin was not helpful, instead using vagisil cream helps. Discussed hospice vs palliative. Patient is open to palliative care as she wishes to stay in her home, however ACP discussion as well and she voiced wanting to be a full code, would want to have all measures taken [facility]. She states "I dont want to yet". She would like her 2 granddaughters Laura Figueroa listed as healthcare representatives. Gets jesus out of spending time with her granddaughters family and especially her great grandson. ACP booklet and combined living will/MPOA form given at visit today. Patient did voice that she would be "willing to give a biPap sleep machine another try". Did you receive an alert for an annual wellness visit? No Is this call for a hospital, long term or rehab facility discharge to home? No Medication Reconciliation: Medication Reconciliation completed: yes Review of Current goals: Discussed the following patient-centered CM goals with the patient during this discussion: -ADHERENCE: Treatment plan -Status: At Risk patient is agreeable to trying to use nebulizer regularly. -TREATMENT: Heal and maintain skin integrity -Status: On Track instructed to clean/dry skin tear cover with dressing. -COPD: Achieve successful management of COPD -Status: At Risk recent COPD exacerbation. COPD Patient: YES Oxygen: 4LPM via N/C CHF Patient: YES Reinforced fluid restriction and low sodium diet. CM Plan: Reviewed 3 Red Flags with patient. Advised to call CM with any of the following: Red Flag 1: GUTHRIE, Red Flag 2: falls/injury, or Red Flag 3: swelling with weight gain Remote Patient Monitoring: At this time, RPM not offered/considered for patient due to patient unable to use in the past/not agreeable. Plan for Future Contacts: Plan to follow up within 1 week to check progress on the following goals/needs cardio-pulmonary status. Planned contacts from the following parties will occur this week: PCP office visit and home health as additional contacts per workflow. Advancement/Closure Plan: Keep patient at current Tier with reassessment per workflow. Patient provided CM contact information and encouraged to call with any changes in condition. SNP Member? No PCP Notified of enrollment in CM/HM program: Yes Is Provider in agreement with POC? Yes Yara Morris RN Outpatient Case Management documented in this encounter Miscellaneous Notes * ACP (Advance Care Planning) - Yara Morris RN - 07/28/2023 8:55 AM EDT Patient-centered Communication 07/28/2023 Granddaughter Laura present for discussion. Kimberly chooses to have CPR and all measures taken to sustain life. Stating "I don't want to ". She would like grandauandre Gant and Darlene Gilbert to be healthcare representatives in the event that she could not speak for herself. Yara Morris, RN documented in this encounter Plan of Treatment Upcoming Encounters Date Type Specialty Care Team Description 08/02/2023 Telemedicine [facility] Sharmaine Johns PA-C [address] [place] [address] Aisha Gilliland, Community Health Retail And Promotions Coordinator [address] [place] [address] [place] [address] 08/03/2023 Laboratory Laboratory Processing [facility] Mobile Home Draw [address] [place] [address] 08/04/2023 [facility] [address] [place] [address] 08/04/2023 Office Visit Infectious Disease Julieta Reyes MD [address] [place] [address] 01/07/2024 Office Visit Cardiology Saray Muhammad CRNP [address] [place] [address] Scheduled Procedures Name Priority Associated Diagnoses Date/Ti [...] 02/16/2022 LUNG CANCER SCREENING - USE SMARTSET 40046 Completed 2023, 03/16/2022, 08/24/2018, Additional history exists [...] as of this encounter Visit Diagnoses Diagnosis Advanced care planning/counseling discussion- Primary Other specified counseling documented in this encounter Advance Directives Healthcare Agents on File Name Relationship Healthcare Agent Relationshi p Communication [facility] Rep resentative (appointed verbally by patient or by statute hierarchy) Darlene Gilbert [facility] Change Of Address Clerk resentative (appointed verbally by patient or by statute hierarchy) Care Teams First Cook Relationship Specialty Start Date End Date Roger Alexandra MD [address] [place] [address] PCP - General Family Medicine 12/29/19 documented as of this encounter
--- OUTSIDE RECORDS SUMMARY | 2023-11-16 19:32 | External Medical Summary | Summary of Care ---
Author Name Unknown Organization [facility] Address [address] [facility] [place] [address] Phone [phone] Care Team Providers Care Oracle Ebs Consultant Name Role Phone Jeevan Mclean MD Primary Care Provider [phone] Reason for Visit * Reason Onset Date Comments Medication Refill 07/25/2023 Encounter Details Date Type Department Care Team Description 07/25/[address] 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 0 01/12/2023 Active Nystatin 849973 UNIT/GM External Powder (Nyamyc) apply to affected [...] 11 07/07/2023 Active Vitamin D3 1.25 MG (08420 UT) Oral Capsule Take 1 Capsule by [...] Addendum Note - Yara Hernandez RN - 07/26/2023 2:27 PM EDTAddended by: YARA HERNANDEZ on: 07/26/2023 02:27 PM Modules accepted: Orders * Telephone Encounter - Yara Hernandez RN - 07/26/2023 2:22 PM EDT Spoke with patient, she does not want this script to go to [facility], [facility] I called and cancelled this at [facility] and called and verified this is in stock at [facility]. Dr. Mclean, Pended to be sent to [facility] at patients request. Thank you * Telephone Encounter - Yumiko Garcia [facility] - 07/26/2023 1:58 PM EDT Signed Prescriptions: Disp Refills Acetaminophen-Codeine 300-30 MG Oral Eoznvh924 Ta*0 Sig: Take 1 Tablet by mouth every 6 hours as needed for Pain, Moderate.Authorizing Provider: JEEVAN MCLEAN * Telephone Encounter - Jeevan Mclean MD - 07/26/2023 1:25 PM EDTSigned Prescriptions: Disp Refills Acetaminophen-Codeine 300-30 MG Oral Autawb147 Ta*0 Sig: Take 1 Tablet by mouth [...] 07/27/2023 Last date the medication was ordered: 8/11/23 Patient Active Problem List Diagnosis Code Irritable bowel syndrome with diarrhea K58.0 Medical home patient encounter Z00.8 Depression with anxiety F41.8 Obstructive sleep apnea G47.33 Von Willebrand disease ([facility]) D68.00 Idiopathic cardiomyopathy ([facility]) I42.9 Acquired hypothyroidism E03.9 Super obese E66.9 Chronic bilateral low back pain without sciatica M54.50, G89.29 Paroxysmal atrial fibrillation ([facility]) I48.0 History of multiple strokes Z86.73 Chronic diastolic CHF (congestive heart failure) ([facility]) I50.32 PTSD (post-traumatic stress disorder) F43.10 COPD, group D, by GOLD 2017 classification ([facility]) J44.9 Chronic hypoxemic respiratory failure ([facility]) J96.11 History of narcotic addiction ([facility]) F11.21 Decreased functional mobility R26.89 Oxygen [...] Mclean MD [address] [place] [address] 08/02/2023 Telemedicine [facility] Sharmaine Johns PA-C [address] [place] [address] Aisha GillilandFormerly [facility] [address] [place] [id number] 08/04/2023 Office Visit Infectious Disease Julieta Reyes MD [address] [place] [address] 01/07/2024 Office Visit Cardiology Saray Muhammad CRNP [address] [place] [address] Scheduled Procedures Name Priority Associated Diagnoses Date/Ti [...] 02/16/2022 LUNG CANCER SCREENING - USE SMARTSET 43821 Completed 2023, 03/16/2022, 08/24/2018, Additional history exists [...] sciatica documented in this encounter Care Teams Oracle Ebs Consultant Relationship Specialty Start Date End Date Jeevan Mclean MD [address] [place] [address] PCP - General Family Medicine 12/29/19 documented as of this encounter
--- OUTSIDE RECORDS SUMMARY | 2023-11-16 19:33 | External Medical Summary | Summary of Care ---
Author Name Unknown Organization [facility] Address [address] [place] [address] Phone [phone] Care Team Providers Care Centrifugal Wax Molder Name Role Phone Roger Alexandra MD Primary Care Provider [phone] [phone] Reason for Visit * Reason Onset Date Comments case management 07/20/2023 Encounter Details Date Type Department Care Team Description 07/20/2023 Grocery Manager Telephone Care Coordination [address] [place], [place] [id number] Saray Jones LSW [address] [place] [address] case management Allergies Active Allergy Reactions Severity Noted Date Comments Aspirin Unknown 12/12/2007 von Willebrand's disease Salicylates 03/01/2000 von Willebrand's disease documented as of this encounter (statuses as of 07/20/2023) Medications Medication Sig Dispensed Refills Start Date [...] (Feosol) 1 Tablet. 0 01/12/2023 Active Nystatin 916501 UNIT/GM External Powder (Nyamyc) apply to affected [...] 11 07/07/2023 Active Vitamin D3 1.25 MG (63839 UT) Oral Capsule Take 1 Capsule by [...] as of this encounter (statuses as of 07/20/2023) Active Problems Problem Noted Date Prediabetes 07/13/2023 [...] as of this encounter (statuses as of 07/20/2023) Resolved Problems Problem Noted Date Resolved Date [...] as of this encounter (statuses as of 07/20/2023) Immunizations Name Administration Dates Next Due H1N1 [...] * Telephone Encounter - PARVEZ Mason - 07/20/2023 9:57 AM EDT Images from the original note were not included. [facility] Goal review attempt UTC#3: [facility] spoke w/ pt. Pt reports she is currently in the hospital w/ a COPD exasperation. Requested to rescheduled psychiatry w/ Dr. Alcantara. [facility] verbalized understanding and notified Dr. Alcantara of pt's hospitalization Follow-up Routine Attempted Phone Call Third Attempt Call Outcome Unable to Leave Message Plan To attempt another outreach [facility] Grocery Manager (Pronouns: she, her, hers) Care Coordination Integration nurse practitioner home assessments documented in this encounter Plan of Treatment Upcoming Encounters Date Type Specialty Care Team Description 07/21/2023 Telemedicine Psychiatry Hugo Alcantara MD [address] [place] [address] 07/21/2023 Laboratory Laboratory Processing [facility], [facility] Mobile Home Draw [address] [place] [address] 07/21/2023 Office Visit Urology Juan José Walters MD [address] [facility] [address] [place] [address] 07/22/2023 [facility] [address] [place] [address] 08/02/2023 Telemedicine [facility] Sharmaine Johns PA-Roz [address] [place] [address] Aisha Gilliland, [address] [place] [address] 08/04/2023 Office Visit Infectious Disease Julieta Reyes MD [address] [place] [address] 01/07/2024 Office Visit Cardiology Saray Muhammad CRNP [address] [place] [address] Scheduled Procedures Name Priority Associated Diagnoses Date/Ti [...] 02/16/2022 LUNG CANCER SCREENING - USE SMARTSET 23635 Completed 2023, 03/16/2022, 08/24/2018, Additional history exists [...] filedocumented as of this encounter Care Teams Centrifugal Wax Molder Relationship Specialty Start Date End Date Roger Alexandra MD [address] [place] [address] PCP - General Family Medicine 12/29/19 documented as of this encounter
--- OUTSIDE RECORDS SUMMARY | 2023-11-16 19:33 | External Medical Summary | Summary of Care ---
Author Name Unknown Organization [facility] Address [address] [place] [address] Phone [phone] Care Team Providers Care Gas Meter Repairer Name Role Phone Roger Alexandra MD Primary Care Provider [phone] Reason for Referral * Ancillary Services (Within 10 days (routine)) - Authorized Specialty Diagnoses / Procedures Referred By Contac t Referred To Contact Air Tube Releaser Diagnoses Non compliance with medical treatment Roger Alexandra MD [address] [place] [address] Referral ID Status Reason Start Date Expiration Date Visits Requested Visits Authorized [id number] Authorized Ancillary Services Required 07/07/2023 999 999 Question Answer Referral Priority Within 10 days (routine) * Evaluate & Treat - Unlimited Visits (Within 10 days (routine)) - Authorized Specialty Diagnoses / Procedures Referred By Contac t Referred To Contact Physical Therapy / Physical Medicine And Rehab Diagnoses Decreased functional mobility Roger Alexandra MD [address] [facility] [address] Referral ID Status Reason Start Date Expiration Date Visits Requested Visits Authorized [id number] Authorized Specialty Services Required 07/07/2023 999 999 Question Answer Referral Priority Within 10 days (routine) Reason for Visit * Reason Onset Date Comments Home Health 07/02/2023 Encounter Details Date Type Department Care Team Description 07/02/2023 Telephone Family [facility] [address] [place] [address] Roger Alexandra MD [address] [place] [address] Home Health Allergies Active Allergy Reactions Severity Noted Date Comments Aspirin Unknown 12/12/2007 von Willebrand's disease Salicylates 03/01/2000 von Willebrand's disease documented as of this encounter (statuses as of 07/13/2023) Medications Medication Sig Dispensed Refills Start Date End Date Status oxygen IN GASIndications:Chr onic hypoxemic respiratory failure (HCC),COPD, group D, by GOLD 2017 classification ([facility]) Use 2 LPM at rest, [...] [facility]),Chronic hypoxemic respiratory failure (HCC) Use with nebulized meds 1 Each 0 2 Active Full Kit Nebulizer SetIndications: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 0 3 Active Nystatin 187757 UNIT/GM External Powder (Nyamyc) apply to affected [...] With food.. 20 Capsule 0 3 Active Acetaminophen-Code ine 300-30 MG Oral TabletIndications: Chronic bilateral low back pain without sciatica Take 1 Tablet by mouth every 6 hours as needed for Pain, Moderate. 120 Tablet 0 3 Active ProAir HFA 108 (90 Base) [...] daily 30 Tablet 5 3 023 Discontinued busPIRone HCl 10 MG Oral Tablet (Buspar) Take 2 Tablets by mouth in the morning and 2 Tablets before bedtime. 120 Tablet 2 3 023 Discontinued(Re fill) Hospital, Clinic, or Other Facility Administered Medication Ordered Dose Route Frequency Start Date End Date Status Albuterol Sulfate (Proventil) (2.5 MG/3ML) 0.083% inhalation solution 2.5 mgIndications:COPD, group D, by GOLD 2017 classification ([facility]) 2.5 mg NEBULIZER PRN 03/03/2023 03/02/2024 Acti ve Albuterol Sulfate (Proventil) (5 MG/ML) 0.5% *conc* inhalation solution 2.5 mgIndications:COPD, group D, by GOLD 2017 classification ([facility]) 2.5 mg NEBULIZER PRN 03/03/2023 [...] Encounter - Kim De Guzman LPN - 07/13/2023 4:13 PM EDT Updated refs faxed to [facility] today. * Telephone Encounter - Roger Alexandra MD - 07/07/2023 11:22 AM EDT Signed. * Telephone Encounter - Temi West LPN - 07/06/2023 11:49 AM EDT Provider to address: Please advise and place order for PT and socially responsible investment adviser if agreeable. Reason for Call: Home Health Contact: Telephone Call Contact Type: Care Coordination Total Time including non face to face (minutes): 5 * Telephone Encounter - RUFINA Luna - 07/05/2023 11:33 AM EDT Saray from home health calling for update. She is asking for orders for eval due to being deconditioned as well as a socially responsible investment adviser due to caregivers being her grand parents. She is also needing apptlist w/agricultural extension specialist name faxed to [phone] w/the orders. Needing to clarify meds as there weremany discrepancies. * Telephone Encounter - Roger Alexandra MD - 07/02/2023 8:02 PM EDT What am I being asked to advise on? Patient is non compliant. I would encourage her to be compliant. * Telephone Encounter - Temi West LPN - 07/02/2023 8:20 AM EDT Provider to address: HH Concerns Saray RN Calling from: [facility] Report/Concerns of: Non-compliance Narrative: Saray almonte [facility] is calling. Reports that the pt is very non-compliant and is a poor historian. Pt is drinking nothing but pepsi- concern that this is not helping with obtaining UTI. Is asking that an order is provided for PT evaluation due to being deconditioned as well as a socially responsible investment adviser due to the pt's caregivers being her granddaughters. Found several discrepancies on the med list that the pt had compared to the med list that was provided with the referral. Pt is not using nebs at all-pt reported that they don't work for her, only takes pro air 2 puffs daily, takes lasix 40mg twice a day and is not taking vesicare. Pt would not allow Saray to look at her prescription bottles. Asks that orders and appt list along with Mechanical Equipment Sales Engineer's name is faxed to [phone]. Please advise. Reason for Call: Home Health Contact: Telephone Call Contact Type: Care Coordination Total Time including non face to face (minutes): 15 * Telephone Encounter - RUFINA Norton - 07/02/2023 8:14 AM EDT Reason for patient's call [facility], called to speak with a nurse Caller was transferred to Temi at the nurse line. documented in this encounter Plan of Treatment Upcoming Encounters Date Type Specialty Care Team Description 07/21/2023 Telemedicine Psychiatry Hugo Alcantara MD [address] [place] [address] 07/21/2023 Laboratory Laboratory Processing [facility] Mobile Home Draw [address] [place] [address] 07/21/2023 Office Visit Urology Juan José Walters MD [address] [facility] [address] [place] [address] 07/22/2023 Anticoagulation Pharmacy Telepharmacy, [facility] [address] [place] [address] 08/02/2023 Telemedicine [facility] Sharmaine Johns PA-C [address] [place] [address] Aisha Gilliland, Community Health Tariff Publishing Agent [address] [place] [address] [place] [id number] 08/04/2023 Office Visit Infectious Disease Julieta Reyes MD [address] [place], [place] [id number] 01/07/2024 Office Visit Cardiology Saray Muhammad CRNP [address] [place] [address] Scheduled Procedures Name Priority Associated Diagnoses Date/Ti me COLONOSCOPY FLEXIBLE PROXIMA L DIAGNOSTIC Recall History of colonic polyps Scheduled Referrals Name Type Priority Associated Diagnoses Orde r Schedule PHYSICAL THERAPY REFERRAL OP Referral Within 10 days (routine) Decreased functional mobility Ordered: 07/07/2023 SOCIAL SERVICE REFERRAL OP Referral Within 10 days (routine) Non compliance with medical treatment Ordered: 07/07/2023 Health Maintenance Due Date Last Done Comments [...] 02/16/2022 LUNG CANCER SCREENING - USE SMARTSET 58638 Completed 2023, 03/16/2022, 08/24/2018, Additional history exists [...] Other symptoms involving nervous and musculoskeletal systems Non compliance with medical treatment Personal history of noncompliance with medical treatment, presenting hazards to health documented in this encounter Care Teams Gas Meter Repairer Relationship Specialty Start Date End Date Roger Alexandra MD [address] [place] [address] PCP - General Family Medicine 12/29/19 documented as of this encounter
--- OUTSIDE RECORDS SUMMARY | 2023-11-16 19:33 | External Medical Summary | Summary of Care ---
Author Name Unknown Organization [facility] Address [address] [place] [address] Phone [phone] Care Team Providers Care Regulator Operator Name Role Phone Roger Alexandra MD Primary Care Provider [phone] Reason for Visit * Reason Onset Date Comments Hospital Follow-Up 07/23/2023 Encounter Details Date Type Department Care Team Description 07/23/2023 Telephone General Internal Medicine [facility] [address] [place] [address] Roger Alexandra MD [address] [place] [address] Hospital Follow-Up Allergies Active Allergy Reactions Severity Noted Date Comments Aspirin Unknown 12/12/2007 von Willebrand's disease Salicylates 03/01/2000 von Willebrand's disease documented as of this encounter (statuses as of 07/23/2023) Medications Medication Sig Dispensed Refills Start Date [...] (Feosol) 1 Tablet. 0 01/12/2023 Active Nystatin 407987 UNIT/GM External Powder (Nyamyc) apply to affected [...] 11 07/07/2023 Active Vitamin D3 1.25 MG (33406 UT) Oral Capsule Take 1 Capsule by [...] as of this encounter (statuses as of 07/23/2023) Active Problems Problem Noted Date Prediabetes 07/13/2023 [...] as of this encounter (statuses as of 07/23/2023) Resolved Problems Problem Noted Date Resolved Date [...] as of this encounter (statuses as of 07/23/2023) Immunizations Name Administration Dates Next Due H1N1 [...] Patient evaluated by pulmonology while inpt at [facility], and it was recommended that an ENT referral for potential vocal cord dysfunction be considered. Thank you * Telephone Encounter - West Way RN - 07/23/2023 12:41 PM EDT Patient discharged from [facility] today, after treatment for COPD exac.and respiratory failure It is recommended that patient follow up with Pulmonology in 1-2 weeks. Scheduling reports the next opening is in October. Please assist patient with a sooner appointment if able. Thank you documented in this encounter Plan of Treatment Upcoming Encounters Date Type Specialty Care Team Description 07/26[facility]20[facility] 07/27/2023 Office Visit Family Medicine Roger Alexandra MD [address] [place] [address] 08/02/2023 Telemedicine [facility] Sharmaine Johns PA-C [address] [place] [address] Aisha Gilliland, [address] [place] [phone] 08/04/2023 Office Visit Infectious Disease Julieta Reyes MD [address] [place], [place] [phone] 01/07/2024 Office Visit Cardiology Saray Muhammad CRNP [address] [place] [address] Scheduled Procedures Name Priority Associated Diagnoses Date/Ti [...] 02/16/2022 LUNG CANCER SCREENING - USE SMARTSET [id number] Completed 2023, 03/16/2022, 08/24/2018, Additional history exists [...] filedocumented as of this encounter Care Teams Regulator Operator Relationship Specialty Start Date End Date Roger Alexandra MD [address] [place] [address] PCP - General Family Medicine 12/29/19 documented as of this encounter
--- OUTSIDE RECORDS SUMMARY | 2023-11-16 19:33 | External Medical Summary | Summary of Care ---
Author Name Unknown Organization [facility] Address [address] [facility] [address] Phone [phone] Care Team Providers Care Aged Or Disabled Care Worker Name Role Phone Roger Alexandra MD Primary Care Provider [phone] Reason for Visit * Reason Comments Dosage Adjustment Via Phone (anticoag Cl inic) Encounter Details Date Type Department Care Team Description 07/22/2023 Anticoagulation Pharmacy Call Center [address] [place] [address] [facility] [address] [facility] [place] [address] Anticoagulation management encounter* Allergies Active Allergy Reactions Severity Noted Date Comments Aspirin Unknown 12/12/2007 von Willebrand's disease Salicylates 03/01/2000 von Willebrand's disease documented as of this encounter (statuses as of 07/22/2023) Medications Medication Sig Dispensed Refills Start Date [...] (Feosol) 1 Tablet. 0 01/12/2023 Active Nystatin 233893 UNIT/GM External Powder (Nyamyc) apply to affected [...] 11 07/07/2023 Active Vitamin D3 1.25 MG (40346 UT) Oral Capsule Take 1 Capsule by [...] as of this encounter (statuses as of 07/22/2023) Active Problems Problem Noted Date Prediabetes 07/13/2023 [...] as of this encounter (statuses as of 07/22/2023) Resolved Problems Problem Noted Date Resolved Date [...] 12/21/2008 Atrial septal aneurysm 02/04/2006 9 terminal worker current use of anticoagulant therapy 0 [...] as of this encounter (statuses as of 07/22/2023) Immunizations Name Administration Dates Next Due H1N1 [...] encounter Progress Notes * DANIEL Solares - 07/22/2023 7:38 AM EDT Pt is currently admitted at [facility]. Scheduled for f/u call for 07/26/23. Thank you, Xenia Sheppard Deputy Sheriff [facility] ([facility] (formerly Telepharmacy) [phone] 07/22/2023,7:40 AM documented in this encounter Plan of Treatment Upcoming Encounters Date Type Specialty Care Team Description 07/26/2023 Anticoagulation Pharmacy Telepharmacy, [facility] 58 [address] [facility] [place] [address] 08/02/2023 Telemedicine [facility] Sharmaine Johns PA-C [address] [place] [address] Aisha Gilliland, Community Health Readers' Advisory Service Librarian [address] [place] [address] [place] [address] 08/04/2023 Office Visit Infectious Disease Julieta Reyes MD [address] [facility] [place] [phone] 01/07/2024 Office Visit Cardiology Saray Muhammad CRNP [address] [place] [address] Scheduled Procedures Name Priority Associated Diagnoses Date/Ti [...] 02/16/2022 LUNG CANCER SCREENING - USE SMARTSET 28562 Completed 2023, 03/16/2022, 08/24/2018, Additional history exists [...] monitoring documented in this encounter Care Teams Aged Or Disabled Care Worker Relationship Specialty Start Date End Date Roger Alexandra MD [address] [place] [address] PCP - General Family Medicine 12/29/19 documented as of this encounter
[2023-11-16] MEDS ORDERED: ALBUTEROL HFA 8 GM INHALER INH PRN (21:12)
[2023-11-16] MEDS ORDERED: BACLOFEN 10 MG TAB PO PRN (21:12)
[2023-11-16] MEDS: traMADol HCL 50 MG TABLET PO PRN (21:17)
[2023-11-16] MEDS ORDERED: Patient's HEIGHT &/or WEIGHT Needed SCH (21:30)
[2023-11-16] MEDS ORDERED: ALBUTEROL 0.083% NEBU SOLN 3 ML VIAL INH PRN (21:46)
[2023-11-16] MEDS: PANTOprazole 40 MG TAB PO SCH (22:11)
[2023-11-16] MEDS: MONTELUKAST SODIUM 10 MG TABLET PO SCH (22:11)
[2023-11-16] MEDS: SERTRALINE HCL 50 MG TABLET PO SCH (22:11)
[2023-11-16] MEDS: LORazepam 0.5 MG TAB PO PRN (22:52)
[2023-11-16 23:15] LABS: Adenovirus F 40/41 PCR Not Detected (NotDetected); Astrovirus PCR Not Detected (NotDetected); Campylobacter PCR Not Detected (NotDetected); Cryptosporidium PCR Not Detected (NotDetected); Cyclospora cayetanensis PCR Not Detected (NotDetected); Entamoeba histolytica PCR Not Detected (NotDetected); Enteroaggregative E.coli(EAEC) Not Detected (NotDetected); Enteropathogenic E.coli (EPEC) Not Detected (NotDetected); Enterotoxigenic E.coli (ETEC) Not Detected (NotDetected); Giardia lamblia PCR Not Detected (NotDetected); Norovirus GI/GII PCR Not Detected (NotDetected); Plesiomonas shigelloides PCR Not Detected (NotDetected); Rotavirus A PCR Not Detected (NotDetected); Salmonella PCR Not Detected (NotDetected); Sapovirus PCR Not Detected (NotDetected); Shiga-like Toxin E.coli (STEC) Not Detected (NotDetected); Shigella/Enteroinvasive E.coli Not Detected (NotDetected); Vibrio cholerae PCR Not Detected (NotDetected); Vibrio species PCR Not Detected (NotDetected); Yersinia enterocolitica PCR Not Detected (NotDetected)
[2023-11-16] MEDS: APIXABAN 5 MG TABLET PO SCH (23:44)
[2023-11-16] MEDS: HYDROmorphone INJ 0.5 MG/0.5 ML SYR IV PRN (23:44)
[2023-11-17] MEDS: ACETAMINOPHEN W/CODEINE #3 1 TAB PO PRN ×2 (02:05→09:01)
[2023-11-17] MEDS: ONDANSETRON INJ 2 MG/ML 2 ML VIAL IV PRN ×2 (02:06→09:02)
--- OUTSIDE RECORDS SUMMARY | 2023-11-17 04:40 | External Medical Summary | Summary of Care ---
Author Name Unknown Organization [facility] Address [address] [facility] [address] Phone [phone] Care Team Providers Care Sld Educational Aide Name Role Phone Roger Alexandra MD Primary Care Provider [phone] Encounter Details Date Type Department Care Team (Late st Contact Info) Description 11/15/2023 Result Scan Unspecified Department Emmanuel Brooks, [address] [place] [address] <No scans attached> Allergies Active Allergy Reactions Criticality Noted Date Comments Aspirin Unknown 12/12/2007 von Willebrand's disease Salicylates 03/01/2000 von Willebrand's disease documented as of this encounter (statuses as of 11/16/2023) Medications Medication Sig Dispensed Refills Start Date [...] J44.9 90 mL 3 03/18/2023 Active Nystatin 012505 UNIT/GM External Powder ([facility]) apply to affected area twice [...] before bedtime. 18 g 5 07/13/2023 Active Solifenacin Succinate 10 MG Oral Tablet [...] MCG/ACT Inhalation Aerosol Powder Breath Activated (umeclidinium [place]) Inhale 1 Puff by mouth in the [...] a day 60 Tablet 0 10/09/2023 Active Ramelteon 8 MG Oral Tablet (Rozerem) Take 1 Tablet by mouth at bedtime. 30 Tablet 0 10/09/2023 Active Vitamin D3 1.25 MG (34329 UT) Oral Capsule Take 1 Capsule by mouth once a week. 4 Capsule 0 10/09/2023 Active Baclofen 10 MG Oral Tablet (Lioresal)Indication s:Chronic bilateral low back pain without sciatica take 1 tablet by mouth three times a day if needed for muscle spasm 90 Tablet 0 11/01/2023 Active Metoprolol Succinate ER 25 MG Oral Tablet Extended Release 24 Hour (toPROL XL) take 1 tablet by mouth every morning 30 Tablet 0 11/05/2023 Active Montelukast Sodium 10 MG Oral Tablet (Singulair) take 1 tablet by mouth at bedtime 30 Tablet 0 11/05/2023 Active Donepezil HCl 5 MG Oral Tablet (Aricept) take 1 tablet by mouth every morning TAKE WITH THE LARGEST MEAL OF THE DAY 30 Tablet 0 11/05/2023 Active Omeprazole 20 MG Oral Capsule Delayed Release (PriLOSEC) take 1 capsule by mouth every morning then BEFORE BEDTIME 60 Capsule 0 11/05/2023 Active Potassium Chloride ER 10 MEQ Oral Capsule Extended Release take 1 capsule by mouth every morning then BEFORE BEDTIME 60 Capsule 0 11/05/2023 Active Sertraline HCl 50 MG Oral Tablet (Zoloft) take 1 tablet by mouth once daily 30 Tablet 0 11/05/2023 Active Mirtazapine 30 MG Oral Tablet (Remeron) take 1 tablet by mouth at bedtime 30 Tablet 0 11/05/2023 Active Hospital, Clinic, or Other Facility Administered [...] as of this encounter (statuses as of 11/16/2023) Active Problems Problem Noted Date Diagnosed Date [...] as of this encounter (statuses as of 11/16/2023) Resolved Problems Problem Noted Date Diagnosed Date [...] 02/04/2006 009 Atrial septal aneurysm 02/04/200612/21 senior living current use of ant icoagulant therapy 06/01/2005 [...] as of this encounter (statuses as of 11/16/2023) Immunizations Name Administration Dates Next Due H1N1 2009 Influenza, IM 12/19/2009 Pneumococcal Polysaccharide PPV23 (Pneumovax) 03/20/2009 Seasonal Influenza Virus Vac cine, Unspecified Formulation 11/11/2021,09/15/2020,10/03/2017,08/21,08/01/2014,07/30/2014,08/09/2013 ,08/03/2012,08/24/2011,08/06/2010,0202/2010,09/20/2007,09/04/2003 Seasonal Influenza, PF, 6 M & above, [...] Info) Description 11/17/2023 9:30 AM EST Tele[facility]icine [facility], [place] [address] [place] [address] Sharmaine Johns PA-C [address] [place] [address] Kim Carrizales, Community Health Quality Inspector [address] [place] [address] 11/29/2023 3:30 PM EST Telemedicine Psychiatry, [facility] 200 [place] [place] [address] Hugo Alcantara MD [address] [place] [address] 01/07/2024 1:30 PM EST Office Visit Cardiology, [facility] [address] [place] [address] Saray Muhammad CRNP [address] [place] [address] Scheduled Procedures Name Priority Associated Diagnoses Date/Ti [...] 02/16/2022 LUNG CANCER SCREENING - USE SMARTSET 16052 Completed 2023, 03/16/2022, 08/24/2018, Additional history exists GARDASIL-HPV IMMUNIZATION SERIES Aged Out No longer eligible based on patient's age to complete this topic MENINGOCOCCAL (MENACTRA/MENVEO) Aged Out No longer eligible based on patient's age to complete this topic documented as of this encounter Medical Devices Not on filedocumented as of this encounter Procedures Procedure Name Priority Date/Time Associated Diagnosis Comments OUTSIDE LAB RESULTS 11/15/2023 documented in this encounter Results * OUTSIDE LAB RESULTS (11/15/2023) 11/15/2023 Emmanuel Brooks DO LABORATORY documented in this encounter Advance Directives Healthcare Agents on File Name Relationship Healthcare Agent Relationshi p Communication Laura Gant [facility] Administrator Social Welfare resentative (appointed verbally by patient or by statute hierarchy) Darleneasher Ruelaser [facility] Administrator Social Welfare resentative (appointed verbally by patient or by statute hierarchy) Care Teams Sld Educational Aide Relationship Specialty Start Date End Date Roger Alexandra MD [address] [place] [address] PCP - General Family Medicine 12/29/19 documented as of this encounter
--- OUTSIDE RECORDS SUMMARY | 2023-11-17 04:40 | External Medical Summary | Summary of Care ---
Author Name Unknown Organization [facility] Address [address] [place] [address] Phone [phone] Care Team Providers Care Systems Software Specialist Name Role Phone Roger Alexandra MD Primary Care Provider [phone] Encounter Details Date Type Department Care Team (Late st Contact Info) Description 11/14/2023 Result Scan Unspecified Department Roger Alexandra MD [address] [place] [address] <No scans attached> Allergies Active Allergy Reactions [...] J44.9 90 mL 3 03/18/2023 Active Nystatin 604121 UNIT/GM External Powder ([facility]) apply to affected area twice a [...] MCG/ACT Inhalation Aerosol Powder Breath Activated (umeclidinium [place]) Inhale 1 Puff by mouth in the [...] 0 10/09/2023 Active Vitamin D3 1.25 MG (10368 UT) Oral Capsule Take 1 Capsule by [...] 9:30 AM EST Telemedicine [facility], [place] [address] [place] [address] Sharmaine Johns PA-C [address] [place] [address] Kim Carrizales, Community Health Giving Officer [address] [place] [address] 11/29/2023 3:30 PM EST Telemedicine Psychiatry, [address] [place] [address] Hugo Alcantara MD [address] [place] [address] 01/07/2024 1:30 PM EST Office Visit Cardiology, [facility] [address] [place] [address] Saray Muhammad CRNP [address] [place] [address] Scheduled Procedures Name Priority Associated Diagnoses Date/Ti [...] 02/16/2022 LUNG CANCER SCREENING - USE SMARTSET 19538 Completed 2023, 03/16/2022, 08/24/2018, Additional history exists GARDASIL-HPV IMMUNIZATION SERIES Aged Out No longer eligible based on patient's age to complete this topic MENINGOCOCCAL (MENACTRA/MENVEO) Aged Out No longer eligible based on patient's age to complete this topic documented as of this encounter Medical Devices Not on filedocumented as of this encounter Procedures Procedure Name Priority Date/Time Associated Diagnosis Comments OUTSIDE LAB RESULTS 11/14/2023 documented in this encounter Results * OUTSIDE LAB RESULTS (11/14/2023) 11/14/2023 Roger Alexandra MD LABORATORY documented in this encounter Advance Directives Healthcare Agents on File Name Relationship Healthcare Agent Relationshi p Communication Laura Gant [facility] Trial Court Judge resentative (appointed verbally by patient or by statute hierarchy) Darlene Gilbert [facility] Trial Court Judge resentative (appointed verbally by patient or by statute hierarchy) Care Teams Systems Software Specialist Relationship Specialty Start Date End Date Roger Alexandra MD [address] [place] [address] PCP - General Family Medicine 12/29/19 documented as of this encounter
--- OUTSIDE RECORDS SUMMARY | 2023-11-17 04:40 | External Medical Summary | Summary of Care ---
Author Name Unknown Organization [facility] Address [address] [facility] [place] [address] Phone [phone] Care Team Providers Care [facility] Administrator Name Role Phone Roger Alexandra MD Primary Care Provider [phone] Encounter Details Date Type Department Care Team (Late st Contact Info) Description 11/16/[address] [facility] [address] [place] [id number] Emmanuel Brooks DO [address] [place] [address] Allergies Active Allergy Reactions Criticality Noted Date [...] J44.9 90 mL 3 03/18/2023 Active Nystatin 268925 UNIT/GM External Powder ([facility]) apply to affected area twice [...] MCG/ACT Inhalation Aerosol Powder Breath Activated (umeclidinium Painter) Inhale 1 Puff by mouth in the [...] 0 10/09/2023 Active Vitamin D3 1.25 MG (96756 UT) Oral Capsule Take 1 Capsule by [...] at bedtime 30 Tablet 0 11/05/2023 Active Sulfamethoxazole-Tri methoprim 800-160 MG Oral Tablet (Bactrim DS)Indications:Dysur ia Take 1 Tablet by mouth in the morning and 1 Tablet before bedtime. Do all this for 3 days. Until gone. 6 Tablet 0 11/16/2023 Active Hospital, Clinic, or Other Facility Administered Medication Ordered Dose Route Frequency Start Date End Date Status Albuterol Sulfate (Proventil) (2.5 MG/3ML) 0.083% inhalation solution 2.5 mgIndications:COPD, group D, by GOLD 2017 classification ([facility]) 2.5 mg NEBULIZER PRN 03/03/2023 03/02/2024 Acti ve Albuterol Sulfate (Proventil) (5 MG/ML) 0.5% *conc* inhalation solution 2.5 mgIndications:COPD, group D, by GOLD 2017 classification ([facility]) 2.5 mg NEBULIZER PRN 03/03/2023 03/02/2024 [...] Telephone Encounter - Yara Morris RN - 11/16/2023 12:00 PM EST Spoke with patient and made aware. * Telephone Encounter - Emmanuel Brooks DO - 11/16/2023 10:38 AM EST Positive urine culture per [facility] labs Sent treatment to pharmacy documented in this encounter Plan of Treatment Upcoming Encounters Date Type Department Care Team (Late st Contact Info) Description 11/17/2023 9:30 AM EST Telemedicine [facility], [place] [address] [place] [address] Sharmaine Johns PA-C [address] [place] [address] Kim Carrizales, Community Health Ethnic Studies Professor [address] [place] [address] 11/29/2023 3:30 PM EST Telemedicine Psychiatry, [address] [address] Hugo Alcantara MD [address], [place] [id number] 01/07/2024 1:30 PM EST Office Visit Cardiology, [facility] [address] [place] [address] Saray Muhammad CRNP [address] [place], [place] [id number] Scheduled Procedures Name Priority Associated Diagnoses Date/Ti [...] 02/16/2022 LUNG CANCER SCREENING - USE SMARTSET 66072 Completed 2023, 03/16/2022, 08/24/2018, Additional history exists GARDASIL-HPV IMMUNIZATION SERIES Aged Out No longer eligible based on patient's age to complete this topic MENINGOCOCCAL (MENACTRA/MENVEO) Aged Out No longer eligible based on patient's age to complete this topic documented as of this encounter Medical Devices Not on filedocumented as of this encounter Visit Diagnoses Diagnosis Dysuria- Primary documented in this encounter Advance Directives Healthcare Agents on File Name Relationship Healthcare Agent Relationshi p Communication Laura Gant Adult [facility] Coating Engineer resentative (appointed verbally by patient or by statute hierarchy) Darleneasher Ruelaser Adult [facility] Health Coating Engineer resentative (appointed verbally by patient or by statute hierarchy) Care Teams Child Care Center Administrator Relationship Specialty Start Date End Date Roger Alexandra MD [address] [place] [address] PCP - General Family Medicine 12/29/19 documented as of this encounter
[2023-11-17] MEDS: HYDROmorphone INJ 0.5 MG/0.5 ML SYR IV PRN (05:28)
[2023-11-17 06:43] LABS: Hematocrit (blood only) 31.7 % (37.0-47.0); Hemoglobin 10.4 g/dl (12.0-16.0); Mean Corpuscular Hemoglobin 30.3 pg (25.0-34.0); Mean Corpuscular Hgb Conc 32.8 g/dL (32.0-36.0); Mean Corpuscular Volume 92.4 fL (80.0-100.0); Mean Platelet Volume 8.7 fL (9.4-12.4); Platelet Count 397 K/uL (130-400); RDW Coefficient of Variation 26.2 % (11.5-14.5); RDW Standard Deviation 86.6 fL (36.4-46.3); Red Blood Count 3.43 M/uL (4.20-5.40)
[2023-11-17 06:47] LABS: BUN Creatinine Ratio 13.8 (10-20); Est GFR (African American) 74.8 ml/min; Est GFR (Non-African American) 64.6 ml/min; Magnesium 2.5 mg/dl (1.7-2.4); Phosphorus 3.4 mg/dl (2.5-4.9); Potassium 2.8 mmol/L (3.5-5.1)
[2023-11-17] MEDS: ALBUT/IPRATROP 3MG/0.5MG NEB 3 ML VIAL NEB SCH ×4 (07:33→18:31)
[2023-11-17] MEDS: METOPROLOL SUCC 25MG EXT REL TAB PO SCH (09:02)
[2023-11-17] MEDS: DONEPEZIL HCL 5 MG TAB PO SCH (09:02)
[2023-11-17] MEDS: POTASSIUM CHLORIDE CRTAB 20 MEQ TABCR PO SCH ×2 (09:15→20:12)
[2023-11-17] MEDS: PANTOprazole 40 MG TAB PO SCH ×2 (10:29→20:12)
[2023-11-17] MEDS: APIXABAN 5 MG TABLET PO SCH ×2 (10:29→21:13)
--- NOTE | 2023-11-17 11:04 | Electrocardiogram Report ---
Test Reason : Blood Pressure : / mmHG Vent. Rate : 091 BPM Atrial Rate : 091 BPM P-R Int : 142 ms QRS Dur : 084 ms QT Int : 416 ms P-R-T Axes : 026 000 044 degrees QTc Int : 511 ms Normal sinus rhythm with sinus arrhythmia Low voltage QRS Nonspecific ST abnormality Prolonged QT Abnormal ECG When compared with ECG of 12-AUG-2023 16:28, T wave inversion no longer evident in Anterior leads Confirmed by Padilla Bejraano ([id number]) on 11/17/2023 11:03:33 AM Referred By: Roger Alexandra Confirmed By:Padilla Bejarano
[2023-11-17] MEDS: LORazepam 0.5 MG TAB PO PRN ×2 (12:11→21:14)
--- NOTE | 2023-11-17 13:38 | Hospitalist Progress Note ---
Date of Service November 17, 2023 Assessment & Plan (1) Nausea, vomiting, and diarrhea: (2) Generalized weakness: Plan: Patient presents to the hospital due to nausea vomiting and diarrhea for 2 weeks. Reports that the diarrhea is watery; no blood or mucus seen. Stool PCR negative C. difficile pending Advance diet as tolerated. Will follow-up on C. difficile test PT OT evaluation (3) Hypomagnesemia: Plan: Likely secondary to diarrhea illness. Patient is also on PPI therapy. Repleted (4) Hypokalemia: Plan: K 2.5 on admission secondary to significant vomiting over the past week with poor p.o. intake. Supplement as needed (5) Chronic respiratory failure: (6) COPD (chronic obstructive pulmonary disease): Plan: History of COPD. Bilateral wheeze present on admission. Continue niien-uxy-vgbss DuoNeb. Holding off on steroid for the time being. (7) PAF (paroxysmal atrial fibrillation): Plan: Chronic, stable. Continue metoprolol and apixaban per home regimen. (8) Morbid obesity: Plan: Continue treatment for depression and efforts for weight loss. Outpatient counseling recommended. (9) Anxiety and depression: Plan: Chronic, stable. Continue home medications. (10) Dementia: Plan: Per records "very early stages of dementia". Takes donepezil daily. Granddaughter is director of entertainment. DVT prophylaxis apixaban Full code Disposition-telemetry Time spent evaluating patient, direct bedside care, chart review, placing orders, interpretation of diagnostic studies, discussion with consultants, patient, and family members, as well as other required patient management activities is 50-minutes Please note the above document was generated using voice recognition software. It may contain grammatical, syntax or spelling errors. Any formal questions or concerns about the content, text or information contained within the body of this dictation should be directly addressed to the provider for clarification Admission and Anticipated Discharge Date Admission Date: November 16, 2023 Subjective Patient seen and examined at bedside. She reports that her diarrhea has slightly improved after being hospitalized. No complaint of fever, chills, chest pain or shortness of breath. Review of Systems Review of Systems: All systems reviewed & are unremarkable except as noted in Subjective Physical Exam Physical Exam: Constitutional: Awake, alert oriented x 3. Not in any distress. Morbidly obese Respiratory: Bilateral wheeze present. No added sound. Cardiovascular: RRR, no murmur, no edema Vessels: no JVD or carotid bruit Chest: normal inspection of chest Abdomen: Slightly distended, nontender. Musculoskeletal: no cyanosis or clubbing, extremities motor strength 5/5 Skin: no rashes, warm and dry normal turgor Results & Data Results & Data Vital Signs (Past 12 Hours) Vital Signs Temp Pulse Pulse Resp BP Pulse Ox O2 Del Method 11/17/23 11:22 79 20 95 Nasal Cannula 11/17/23 07:59 36.4 C L 76 16 105/71 95 Nasal Cannula 11/17/23 07:36 76 20 94 Nasal Cannula 11/17/23 07:14 70 11/17/23 07:14 Nasal Cannula 11/17/23 01:48 Nasal Cannula 11/17/23 01:48 36.7 C 74 20 102/61 92 Nasal Cannula 11/17/23 01:40 75 O2 Flow Rate 11/17/23 11:22 5 11/17/23 07:59 5 11/17/23 07:36 5 11/17/23 07:14 11/17/23 07:14 5 11/17/23 01:48 5 11/17/23 01:48 5 11/17/23 01:40 (5) Chronic respiratory failure Respiratory failure complication: hypoxia Qualified Code(s): J96.11 - Chronic respiratory failure with hypoxia
[2023-11-17] MEDS: ACETAMINOPHEN 325 MG TAB PO PRN (14:14)
[2023-11-17] MEDS: traMADol HCL 50 MG TABLET PO PRN ×2 (14:15→20:24)
[2023-11-17] MEDS: cefTRIAXone SODIUM 2,000 MG in DEXTROSE 5 % MINI-B 50 ML IV SCH (16:20)
[2023-11-17] MEDS: MIRTAZAPINE TAB 15 MG TAB PO SCH (20:11)
[2023-11-17] MEDS: SERTRALINE HCL 50 MG TABLET PO SCH (20:11)
[2023-11-17] MEDS: MONTELUKAST SODIUM 10 MG TABLET PO SCH (20:12)
[2023-11-17] MEDS ORDERED: LOPERAMIDE HCL 2 MG CAP PO STA (20:32)
[2023-11-18] MEDS: ACETAMINOPHEN 325 MG TAB PO PRN ×2 (01:44→18:38)
[2023-11-18] MEDS: traMADol HCL 50 MG TABLET PO PRN ×3 (06:06→18:38)
[2023-11-18 06:56] LABS: Basophils # (auto) 0.02 K/uL (0.00-0.20); Basophils % (auto) 0.4 %; Eosinophils % (auto) 3.7 %; Hematocrit (blood only) 31.3 % (37.0-47.0); Immature Granulocytes # (auto) 0.02 K/uL (0.01-0.20); Immature Granulocytes % (auto) 0.4 %; Lymphocytes # (auto) 1.37 K/uL (1.20-3.40); Lymphocytes % (auto) 25.5 %; Mean Corpuscular Hemoglobin 30.6 pg (25.0-34.0); Mean Corpuscular Hgb Conc 31.9 g/dL (32.0-36.0); Mean Corpuscular Volume 95.7 fL (80.0-100.0); Mean Platelet Volume 8.7 fL (9.4-12.4); Monocytes # (auto) 0.65 K/uL (0.11-0.59); Monocytes % (auto) 12.1 %; Neutrophils # (auto) 3.11 K/uL (1.40-6.50); Neutrophils % (auto) 57.9 %; Platelet Count 357 K/uL (130-400); RDW Coefficient of Variation 26.6 % (11.5-14.5); RDW Standard Deviation 91.5 fL (36.4-46.3); Red Blood Count 3.27 M/uL (4.20-5.40); White Blood Count 5.37 K/ul (4.8-10.8)
[2023-11-18 07:14] LABS: BUN Creatinine Ratio 12.2 (10-20); Creatinine Clr Calc Pharmacy 76.7 ml/min; Est GFR (African American) 71.2 ml/min; Est GFR (Non-African American) 61.4 ml/min; Potassium 2.9 mmol/L (3.5-5.1)
[2023-11-18 07:25] LABS: Anisocytosis Present; Polychromasia 1+; Stomatocytes 2+
[2023-11-18] MEDS: ALBUT/IPRATROP 3MG/0.5MG NEB 3 ML VIAL NEB SCH ×5 (07:56→22:51)
[2023-11-18] MEDS: APIXABAN 5 MG TABLET PO SCH ×2 (09:03→21:19)
[2023-11-18] MEDS ORDERED: ALPRAZolam 0.25 MG TABLET PO PRN (09:44)
[2023-11-18] MEDS: METOPROLOL SUCC 25MG EXT REL TAB PO SCH (09:50)
[2023-11-18] MEDS: DONEPEZIL HCL 5 MG TAB PO SCH (09:50)
[2023-11-18] MEDS: POTASSIUM CHLORIDE CRTAB 20 MEQ TABCR PO SCH ×2 (09:51→21:22)
[2023-11-18] MEDS: PANTOprazole 40 MG TAB PO SCH ×2 (09:51→21:22)
[2023-11-18] MEDS: LORazepam 0.5 MG TAB PO PRN ×2 (09:59→14:54)
[2023-11-18] MEDS: POTASSIUM CHLORIDE / WTR 10 MEQ/100 ML PLCT IV SCH ×3 (10:37→13:04)
[2023-11-18] MEDS: methylPREDNISolone 40 MG in SYRINGE 0 ML IV SCH ×2 (12:03→21:19)
--- NOTE | 2023-11-18 12:55 | Hospitalist Progress Note ---
Date of Service November 18, 2023 Assessment & Plan (1) Nausea, vomiting, and diarrhea: (2) Generalized weakness: Plan: Patient presents to the hospital due to nausea vomiting and diarrhea for 2 weeks. Reports that the diarrhea is watery; no blood or mucus seen. Stool PCR negative C. difficile pending Advance diet as tolerated. Will follow-up on C. difficile test. If C. difficile is negative; will start Imodium. PT OT evaluation (3) Hypomagnesemia: Plan: Likely secondary to diarrhea illness. Patient is also on PPI therapy. Repleted (4) Hypokalemia: Plan: K 2.5 on admission secondary to significant vomiting over the past week with poor p.o. intake. Supplement as needed (5) Chronic respiratory failure: (6) COPD (chronic obstructive pulmonary disease): Plan: COPD exacerbation Bilateral wheeze present. Continue uquoq-jnz-lfdfr DuoNeb. Started on steroids; plan to treat for 5 days (7) PAF (paroxysmal atrial fibrillation): Plan: Chronic, stable. Continue metoprolol and apixaban per home regimen. (8) Morbid obesity: Plan: Continue treatment for depression and efforts for weight loss. Outpatient counseling recommended. (9) Anxiety and depression: Plan: Chronic, stable. Continue home medications. (10) Dementia: Plan: Takes donepezil daily. Granddaughter is ic design manager. DVT prophylaxis apixaban Full code Disposition-telemetry. PT OT ordered. May need rehab. Case management on board Time spent evaluating patient, direct bedside care, chart review, placing orders, interpretation of diagnostic studies, discussion with consultants, patient, and family members, as well as other required patient management activities is 50-minutes Please note the above document was generated using voice recognition software. It may contain grammatical, syntax or spelling errors. Any formal questions or concerns about the content, text or information contained within the body of this dictation should be directly addressed to the provider for clarification Admission and Anticipated Discharge Date Admission Date: November 16, 2023 Subjective Patient seen and examined at bedside. She was tearful today. She reports that she had multiple episode of diarrhea yesterday; none today. She denies fevers, chills, chest pain. Review of Systems Review of Systems: All systems reviewed & are unremarkable except as noted in Subjective Physical Exam Physical Exam: Constitutional: Awake, alert oriented x 3. Not in any distress. Morbidly obese Respiratory: Bilateral wheeze present. No added sound. Cardiovascular: RRR, no murmur, no edema Vessels: no JVD or carotid bruit Chest: normal inspection of chest Abdomen: Slightly distended, nontender. Musculoskeletal: no cyanosis or clubbing, extremities motor strength 5/5 Skin: no rashes, warm and dry normal turgor Results & Data Results & Data Vital Signs (Past 12 Hours) Vital Signs Temp Pulse Pulse Pulse Resp BP Pulse Ox 11/18/23 12:35 11/18/23 12:30 75 11/18/23 11:24 36.6 C 79 18 111/72 100 11/18/23 10:41 68 22 97 11/18/23 07:57 36.7 C 73 17 95/64 L 98 11/18/23 07:56 78 18 97 11/18/23 03:38 36.7 C 77 18 121/69 97 O2 Del Method O2 Flow Rate 11/18/23 12:35 Nasal Cannula 5 11/18/23 12:30 11/18/23 11:24 Nasal Cannula 5 11/18/23 10:41 Nasal Cannula 5 11/18/23 07:57 Nasal Cannula 5 11/18/23 07:56 Nasal Cannula 5 11/18/23 03:38 Nasal Cannula 5 (5) Chronic respiratory failure Respiratory failure complication: hypoxia Qualified Code(s): J96.11 - Chronic respiratory failure with hypoxia
[2023-11-18] MEDS ORDERED: LORazepam 0.5 MG TAB PO STA ×2 (14:05→20:16)
[2023-11-18] MEDS: cefTRIAXone SODIUM 2,000 MG in DEXTROSE 5 % MINI-B 50 ML IV SCH (15:12)
[2023-11-18] MEDS: BUDESONIDE 0.5 MG/2 ML VIAL (PULMICORT) NEB SCH (19:44)
[2023-11-18] MEDS ORDERED: LOPERAMIDE HCL 2 MG CAP PO STA (20:16)
[2023-11-18] MEDS ORDERED: MICONAZOLE NITRATE POWDER 85 GM EXT PRN (21:21)
[2023-11-18] MEDS: MIRTAZAPINE TAB 15 MG TAB PO SCH (21:22)
[2023-11-18] MEDS: SERTRALINE HCL 50 MG TABLET PO SCH (21:23)
[2023-11-18] MEDS: MONTELUKAST SODIUM 10 MG TABLET PO SCH (21:23)
[2023-11-19] MEDS: ACETAMINOPHEN 325 MG TAB PO PRN ×4 (00:32→20:53)
[2023-11-19] MEDS: traMADol HCL 50 MG TABLET PO PRN ×4 (00:32→20:54)
[2023-11-19] MEDS: ALBUT/IPRATROP 3MG/0.5MG NEB 3 ML VIAL NEB SCH ×6 (02:26→22:16)
[2023-11-19 06:39] LABS: Basophils # (auto) 0.01 K/uL (0.00-0.20); Basophils % (auto) 0.1 %; Hematocrit (blood only) 30.8 % (37.0-47.0); Hemoglobin 10.1 g/dl (12.0-16.0); Immature Granulocytes # (auto) 0.08 K/uL (0.01-0.20); Immature Granulocytes % (auto) 0.8 %; Lymphocytes # (auto) 0.69 K/uL (1.20-3.40); Mean Corpuscular Hemoglobin 30.9 pg (25.0-34.0); Mean Corpuscular Hgb Conc 32.8 g/dL (32.0-36.0); Mean Corpuscular Volume 94.2 fL (80.0-100.0); Mean Platelet Volume 8.9 fL (9.4-12.4); Monocytes # (auto) 0.21 K/uL (0.11-0.59); Monocytes % (auto) 2.1 %; Neutrophils # (auto) 8.84 K/uL (1.40-6.50); Platelet Count 383 K/uL (130-400); RDW Coefficient of Variation 26.5 % (11.5-14.5); RDW Standard Deviation 89.4 fL (36.4-46.3); Red Blood Count 3.27 M/uL (4.20-5.40); White Blood Count 9.83 K/ul (4.8-10.8)
[2023-11-19 07:02] LABS: Anisocytosis Present; Hypersegmented Neutrophils 1+; Hypochromasia Present; Polychromasia 1+
[2023-11-19 07:12] LABS: BUN Creatinine Ratio 17.5 (10-20); Calcium 8.4 mg/dl (8.6-10.3); Est GFR (Non-African American) 57.8 ml/min; Potassium 3.8 mmol/L (3.5-5.1)
[2023-11-19] MEDS: BUDESONIDE 0.5 MG/2 ML VIAL (PULMICORT) NEB SCH ×2 (07:31→20:28)
[2023-11-19] MEDS: LORazepam 0.5 MG TAB PO PRN ×2 (09:28→20:53)
[2023-11-19] MEDS: methylPREDNISolone 40 MG in SYRINGE 0 ML IV SCH ×2 (09:28→20:43)
[2023-11-19] MEDS: APIXABAN 5 MG TABLET PO SCH ×2 (09:30→20:44)
[2023-11-19] MEDS: DONEPEZIL HCL 5 MG TAB PO SCH (09:30)
[2023-11-19] MEDS: PANTOprazole 40 MG TAB PO SCH ×2 (09:30→20:43)
[2023-11-19] MEDS: POTASSIUM CHLORIDE CRTAB 20 MEQ TABCR PO SCH ×2 (09:31→20:43)
[2023-11-19] MEDS: METOPROLOL SUCC 25MG EXT REL TAB PO SCH (09:31)
[2023-11-19] MEDS: PHENAZOPYRIDINE HCL 100 MG TAB PO PRN ×2 (10:29→20:43)
[2023-11-19] MEDS ORDERED: LOPERAMIDE HCL 2 MG CAP PO PRN (12:30)
--- NOTE | 2023-11-19 12:32 | Hospitalist Progress Note ---
Date of Service November 19, 2023 Assessment & Plan (1) Nausea, vomiting, and diarrhea: (2) Generalized weakness: Plan: Patient presents to the hospital due to nausea vomiting and diarrhea for 2 weeks. Reports that the diarrhea is watery; no blood or mucus seen. Stool PCR negative C. difficile negative Advance diet as tolerated. Started on loperamide for loose stool. PT OT recommends rehab; patient accepted at [facility]; no bed available for transfer today (3) Hypomagnesemia: Plan: Likely secondary to diarrhea illness. Patient is also on PPI therapy. Repleted (4) Hypokalemia: Plan: K 2.5 on admission secondary to significant vomiting over the past week with poor p.o. intake. Was repleted with IV and oral supplements. (5) Chronic respiratory failure: (6) COPD (chronic obstructive pulmonary disease): Plan: COPD exacerbation Bilateral wheeze present. Continue hzhle-aud-vxtkc DuoNeb. Started on steroids; plan to treat for 5 days Budesonide nebulizer twice daily as well (7) PAF (paroxysmal atrial fibrillation): Plan: Chronic, stable. Continue metoprolol and apixaban per home regimen. (8) Morbid obesity: Plan: Continue treatment for depression and efforts for weight loss. Outpatient counseling recommended. (9) Anxiety and depression: Plan: Chronic, stable. Continue home medications. (10) Dementia: Plan: Takes donepezil daily. Granddaughter is creative strategist. DVT prophylaxis apixaban Full code Disposition-telemetry. OT recommends rehab; patient accepted to acute rehab. Discharge when bed is available at rehab. Time spent evaluating patient, direct bedside care, chart review, placing orders, interpretation of diagnostic studies, discussion with consultants, patient, and family members, as well as other required patient management activities is 50-minutes Please note the above document was generated using voice recognition software. It may contain grammatical, syntax or spelling errors. Any formal questions or concerns about the content, text or information contained within the body of this dictation should be directly addressed to the provider for clarification Admission and Anticipated Discharge Date Admission Date: November 16, 2023 Subjective Patient seen and examined at bedside. She reports of burning sensation in suprapubic area. She denies any fever, chills, chest pain or shortness of breath. No other significant events overnight. Review of Systems Review of Systems: All systems reviewed & are unremarkable except as noted in Subjective Physical Exam Physical Exam: Constitutional: Awake, alert oriented x 3. Not in any distress. Morbidly obese Respiratory: Bilateral wheeze present. No added sound. Cardiovascular: RRR, no murmur, no edema Vessels: no JVD or carotid bruit Chest: normal inspection of chest Abdomen: Slightly distended, nontender. Musculoskeletal: no cyanosis or clubbing, Skin: no rashes, warm and dry normal turgor Results & Data Results & Data Vital Signs (Past 12 Hours) Vital Signs Temp Pulse Pulse Pulse Resp BP Pulse Ox 11/19/23 10:45 91 H 24 96 11/19/23 07:45 36.5 C 82 12 115/76 97 11/19/23 07:31 88 16 96 11/19/23 07:25 36.8 C 81 16 100/60 96 11/19/23 04:08 36.5 C 92 H 18 94/61 L 96 11/19/23 01:05 11/19/23 01:05 85 O2 Del Method O2 Flow Rate 11/19/23 10:45 Nasal Cannula 5 11/19/23 07:45 Nasal Cannula 5 11/19/23 07:31 Nasal Cannula 4 11/19/23 07:25 Nasal Cannula 5 11/19/23 04:08 Nasal Cannula 5 11/19/23 01:05 Nasal Cannula 5 11/19/23 01:05 (5) Chronic respiratory failure Respiratory failure complication: hypoxia Qualified Code(s): J96.11 - Chronic respiratory failure with hypoxia
[2023-11-19] MEDS ORDERED: LORazepam 0.5 MG TAB PO STA (15:41)
[2023-11-19] MEDS ORDERED: ACETAMINOPHEN 1,000 MG/100 ML VIAL IV STA (15:41)
[2023-11-19] MEDS: cefTRIAXone SODIUM 2,000 MG in DEXTROSE 5 % MINI-B 50 ML IV SCH (15:42)
[2023-11-19] MEDS: MONTELUKAST SODIUM 10 MG TABLET PO SCH (20:43)
[2023-11-19] MEDS: MIRTAZAPINE TAB 15 MG TAB PO SCH (20:43)
[2023-11-19] MEDS: SERTRALINE HCL 50 MG TABLET PO SCH (20:43)
[2023-11-20] MEDS: ALBUT/IPRATROP 3MG/0.5MG NEB 3 ML VIAL NEB SCH ×6 (02:21→22:13)
[2023-11-20] MEDS: traMADol HCL 50 MG TABLET PO PRN ×3 (06:27→20:03)
[2023-11-20] MEDS: LORazepam 0.5 MG TAB PO PRN ×4 (06:27→22:49)
[2023-11-20] MEDS: ACETAMINOPHEN 325 MG TAB PO PRN ×3 (06:27→16:30)
[2023-11-20 07:16] LABS: Basophils # (auto) 0.01 K/uL (0.00-0.20); Basophils % (auto) 0.1 %; Hematocrit (blood only) 32.8 % (37.0-47.0); Hemoglobin 10.5 g/dl (12.0-16.0); Immature Granulocytes # (auto) 0.11 K/uL (0.01-0.20); Immature Granulocytes % (auto) 0.9 %; Lymphocytes # (auto) 1.16 K/uL (1.20-3.40); Lymphocytes % (auto) 9.2 %; Mean Corpuscular Hemoglobin 30.8 pg (25.0-34.0); Mean Corpuscular Volume 96.2 fL (80.0-100.0); Mean Platelet Volume 8.7 fL (9.4-12.4); Monocytes # (auto) 0.54 K/uL (0.11-0.59); Monocytes % (auto) 4.3 %; Neutrophils # (auto) 10.83 K/uL (1.40-6.50); Neutrophils % (auto) 85.5 %; Platelet Count 411 K/uL (130-400); RDW Coefficient of Variation 27.3 % (11.5-14.5); Red Blood Count 3.41 M/uL (4.20-5.40); White Blood Count 12.65 K/ul (4.8-10.8)
[2023-11-20 07:33] LABS: Creatinine Clr Calc Pharmacy 84.5 ml/min; Est GFR (African American) 79.9 ml/min; Potassium 5.8 mmol/L (3.5-5.1)
[2023-11-20] MEDS: BUDESONIDE 0.5 MG/2 ML VIAL (PULMICORT) NEB SCH ×2 (07:39→20:01)
[2023-11-20 07:57] LABS: Anisocytosis Present
[2023-11-20] MEDS: METOPROLOL SUCC 25MG EXT REL TAB PO SCH ×2 (09:37→20:04)
[2023-11-20] MEDS: DONEPEZIL HCL 5 MG TAB PO SCH (09:37)
[2023-11-20] MEDS: PANTOprazole 40 MG TAB PO SCH ×2 (09:37→20:05)
[2023-11-20] MEDS: APIXABAN 5 MG TABLET PO SCH ×2 (09:37→20:04)
[2023-11-20] MEDS: methylPREDNISolone 40 MG in SYRINGE 0 ML IV SCH (09:37)
--- NOTE | 2023-11-20 13:11 | Hospitalist Progress Note ---
Date of Service November 20, 2023 Assessment & Plan (1) Nausea, vomiting, and diarrhea: (2) Generalized weakness: Plan: Patient presents to the hospital due to nausea vomiting and diarrhea for 2 weeks. Reports that the diarrhea is watery; no blood or mucus seen. Stool PCR negative C. difficile negative Advance diet as tolerated. Started on loperamide for loose stool. PT OT recommends rehab; patient accepted at [facility]; no bed available for transfer today (3) Hypomagnesemia: Plan: Likely secondary to diarrhea illness. Patient is also on PPI therapy. Repleted (4) Hypokalemia: Plan: K 2.5 on admission secondary to significant vomiting over the past week with poor p.o. intake. Was repleted with IV and oral supplements. Potassium is 5.8 today. Will hold potassium supplement today. (5) Chronic respiratory failure: (6) COPD (chronic obstructive pulmonary disease): Plan: COPD exacerbation Bilateral wheeze present. Improved on today's examination. Continue etlyd-xwu-wlphy DuoNeb. Started on steroids; plan to treat for 5 days Budesonide nebulizer twice daily as well (7) PAF (paroxysmal atrial fibrillation): Plan: Chronic, stable. Continue metoprolol and apixaban per home regimen. (8) Morbid obesity: Plan: Continue treatment for depression and efforts for weight loss. Outpatient counseling recommended. (9) Anxiety and depression: Plan: Chronic, stable. Continue home medications. (10) Dementia: Plan: Takes donepezil daily. Granddaughter is logistics solution manager. DVT prophylaxis apixaban Full code Disposition-telemetry. OT recommends rehab; patient accepted to acute rehab. Discharge when bed is available at rehab. Time spent evaluating patient, direct bedside care, chart review, placing orders, interpretation of diagnostic studies, discussion with consultants, patient, and family members, as well as other required patient management activities is 50-minutes Please note the above document was generated using voice recognition software. It may contain grammatical, syntax or spelling errors. Any formal questions or concerns about the content, text or information contained within the body of this dictation should be directly addressed to the provider for clarification Admission and Anticipated Discharge Date Admission Date: November 16, 2023 Subjective Patient seen and examined at bedside. She denies any fever, chills, chest pain or shortness of breath. No other significant events overnight. Review of Systems Review of Systems: All systems reviewed & are unremarkable except as noted in Subjective Physical Exam Physical Exam: Constitutional: Awake, alert oriented x 3. Not in any distress. Morbidly obese Respiratory: Bilateral clear breath sounds. Minimal wheeze. Cardiovascular: RRR, no murmur, no edema Vessels: no JVD or carotid bruit Chest: normal inspection of chest Abdomen: Slightly distended, nontender. Musculoskeletal: no cyanosis or clubbing, Skin: no rashes, warm and dry normal turgor Results & Data Results & Data Vital Signs (Past 12 Hours) Vital Signs Temp Pulse Pulse Resp BP Pulse Ox O2 Del Method 11/20/23 11:37 36.5 C 77 18 119/73 95 Nasal Cannula 11/20/23 11:09 79 20 95 Nasal Cannula 11/20/23 09:40 Nasal Cannula 11/20/23 07:44 36.6 C 69 18 125/81 97 Nasal Cannula 11/20/23 07:40 83 20 99 Nasal Cannula 11/20/23 07:29 80 11/20/23 06:26 36.4 C L 81 18 116/62 97 Nasal Cannula 11/20/23 03:35 36.8 C 84 18 113/71 97 Nasal Cannula O2 Flow Rate 11/20/23 11:37 5 11/20/23 11:09 5 11/20/23 09:40 5 11/20/23 07:44 5 11/20/23 07:40 5 11/20/23 07:29 11/20/23 06:26 5 11/20/23 03:35 5 (5) Chronic respiratory failure Respiratory failure complication: hypoxia Qualified Code(s): J96.11 - Chronic respiratory failure with hypoxia
[2023-11-20] MEDS: cefTRIAXone SODIUM 2,000 MG in DEXTROSE 5 % MINI-B 50 ML IV SCH (16:44)
--- NOTE | 2023-11-20 16:59 | Psychiatric Consultation ---
Date of Consultation November 20, 2023 Impression / Recommendations Impression 63 y/o woman with a long history of anxiety that by all available records has never been treated to her satisfaction and who has demonstrated a focus on benzodiazepines (especially lorazepam) to address this (to reiterate, this is not really documented as having been satisfactorily effective). She has had a number of losses, including the of her 17 months ago and currently the loss of her ability to function independently. She has had increasingly evident memory impairment. She has multiple significant medical problems that are vexing in themselves and that collectively account for the current plan for her to transition to rehab. Over the course of the 5 psychiatric consultations here over the past 3 years, there have been consistent recommendations to: * limit or avoid benzodiazepines (all except 11/28/2021) * start ssri or increase dose of the current one (all) * titrate buspirone dose (05/21/2021, 11/28/2021) It's possible those recommendations may have been followed during the respective hospital stays, but pt has clearly returned for subsequent admissions with very similar psychiatric medication regimens including lorazepam 0.5 mg TID, mirtazapine 30 mg QHS (which she's documented several times as saying is ineffective), an SSRI (fluoxetine or sertraline) at a very low dose (except one time when she was on sertraline 150 mg/day, which is merely "low"), and buspirone given twice a day. I think several salient points should be kept in mind when considering ways of addressing pt's anxiety, including * Pt has usually declined titration of medications likely to help after protracted delays in favor of hoping for something that will offer immediate relief. Since this has taken place over a minimum of 3 years, this strategy has clearly deprived her of medication approaches with a good likelihood of having helped years ago and has left her in roughly the same position with respect to overall control of anxiety symptoms as 3 years ago. (While we'll probably have to do something with rapid effect, it's a blunder for us not also to try to insist she use treatments with better long-term outcomes.) * The usual effective adult dose of sertraline 150-300 mg/day for depression symptoms, higher for anxiety symptoms. (She's probably never used an SSRI at a dose that's likely to have worked.) * SNRI's (e.g., venlafaxine, duloxetine, milnacipran & levomilnacipran but probably not desvenlafaxine) are considerably more effective for SIMA than SSRI's are. (Pt seems to have had trials of venlafaxine and duloxetine, which are the main realistic SNRI's and I can't tell why they were stopped.) * Donepezil is usually started at a subtherapeutic dose of 5 mg/day then titrated to 10 mg/day. * Lorazepam administered orally usually reaches peak concentrations after around 2 hours and usually has a duration of action of 6-8 hours. (Her complaint that lorazepam wears off between doses has a plausible basis.) * Administering potentially-addictive drugs on a scheduled rather than PRN basis has been shown to reduce addiction risk, probably by reducing the reward of relieving symptoms that are allowed to build to the point of requiring PRN medication as opposed to keeping symptoms suppressed. (Scheduled lorazepam is likely to work out better than PRN.) * People with substance use disorders have a marked tendency to focus on subjective need for immediate relief and to reject approaches that require consistent effort or use over time. (Potentially-addictive PRN medications should be avoided in patients with histories of BRANDY.) * The only medication treatments we can use are the ones that exist. As trite as this sounds, the only approach that's likely to work will include being realistic about available treatments with their known benefits and drawbacks. (It's important not to keep trying to "reinvent the wheel".) I don't think we are realistically going to be able to avoid benzodiazepines in this case. We should therefore strongly consider using them on a scheduled basis and not providing PRN doses. If she's going to take sertraline, she should take a dose with a reasonable chance of efficacy, i.e., at least 200 mg/day but since the primary side effects of nausea and diarrhea coincide with the primary medical problems for which she was admitted, there may be little point in her taking it at all. Overall I spent a total of 230 minutes on the floor for this consultation assessment including extensive review of chart records, review of test results, direct evaluation of the patient [id number], counseling the patient, medication education with the patient, risk assessment, discussion with the psychiatric liaison nurse, and documentation in the electronic health record. (1) SIMA (generalized anxiety disorder): (2) Dementia: Plan * increase donepezil to 10 mg daily * start lorazepam 0.5 mg QID (scheduled) - obviously watch for sedation or respiratory suppression * eliminate PRN lorazepam * stop sertraline Psych History Identifying Data YAZAN MCKEON is a 63-year-old F with a history of Generalized Anxiety Disorder, Adjustment Disorder with Mixed Anxiety & Depressed Mood, and Opiate Use Disorder in remission, admitted on 11/16/2023 for vomiting and diarrhea. Consult is by the hospitalist service for "Severe anxiety". Chief Complaint "I can't handle it". History of Present Illness As part of a thorough review of the available medical records, I have read and and incorporated into my assessment the following note by the psychiatric liaison nurse: "Met with pt for initial consult. Consulted for anxiety. Pt is well known to our service due to previous consultations for chronic anxiety. Pt was tearful during interview. Pt states her anxiety has worsened due to her medical condition. She states, "one thing after another just happens." She spoke about how she previously had caregivers but lost her waiver. She is unsure how to reapply for this. Recommended she speak to case management regarding this. She voices she sees psychiatry thru [facility]. She is unsure when her last appointment was nor is she aware of any upcoming appts. Pt is a poor historian as she is unsure if she has had any medication changes. Pt is currently prescribed Remeron 30mg po qhs, Zoloft 50mg po daily, Aricept 5mg po qam and Ativan 0.5mg po q8 hrs prn. She states Ativan is ineffective for her. RICKI's were obtained for [facility] psychiatry along with her PCP, Dr. Alexandra. She is denying any SI but states she feels hopeless. She states she cries often and is by herself most days and feels lonely. She reports she has social anxiety so she is nervous about going to rehab post discharge. She denies any previous SA or inpt psychiatric treatment. She denies having a therapist or binder caser but does report having a emergency medical technician through [facility]. Pt denies access to guns. PHQ9=22+0. Pt informed that the psychiatrist would meet with her today to discuss concerns. Denies any other needs at this time. " Review of the medical record reveals 5 previous psychiatric consultations here (09/17/2020, 11/15/2020, 05/21/2021, 11/28/2021, 08/20/2023). All have been primarily related to anxiety, and all noted her tendency to focus on benzodiazepines to the exclusion of other (or additional) options. A note from Dr. Romano on 12/01/2022 is veterans employment representative: "Patient has been splitting staff to seek more frequent benzodiazepines and misrepresenting recs of psychiatry. Patient has a long hx of medication focus and has received varying doses of Ativan on an outpatient basis for some time. Given age, respiratory status, polypharmacy with tramadol, etc Ativan is less than ideal, but ultimately deferring to outpatient provider rather than tapering here. Remeron was discontinued this admission by Dr. Sylvester as patient reported ineffective and she has complained about sleep. She has had extensive med trials and her persistent anxiety complaints are mainly around requests for additional Ativan which is not clinically appropriate. Our service has attempted to provide support around non-pharmacologic interventions for anxiety and she remains focussed on Ativan. Has declined titration of Prozac and I believe further titration of Buspar would be very low yield as she reports ineffective but doesn't want to taper as "needs something" every few hours. " Pt has had trials of at least 19 psychiatric medications (listed by name in the Past Psychiatric History section) with scant evidence of benefit. On exam pt is almost immediately overwhelmed by questions (including "how are you doing?"). Repeatedly asks me to get all my information from her chart even after I tell her I can't directly access [facility] outpatient records. When I discussed recommendations of focusing on anxiety and depression, her two main complaints, pt asked "what do I do about sleep?" or several other concerns. I told her "I really think we should focus on the 2 biggest problems" and that trying to make all of her symptoms better all at once was likely just to cause new problems. I really don't think she was able to grasp this concept. Past Psychiatric History Previous Psych Admissions: [facility] 09/28 (opiate abuse), 09/29; also [facility] 06/20 Past Medication Trials: Pt has had documented trials of the following psychiatric medications, though the dates and doses of most are unknown and she is likely to have had trials of other medications not listed: (likely primarily for depression): duloxetine escitalopram fluoxetine sertraline (up to at least 150 mg/day) venlafaxine (likely primarily as mood stabilizer): aripiprazole gabapentin lamotrigine quetiapine (possibly alternatively or additionally as hypnotic) risperidone topiramate (ostensibly) (likely primarily as anxiolytic): clonazepam buspirone (up to at least 20 mg BID, but no documented TID trials) hydroxyzine lorazepam (likely primarily as hypnotic): mirtazapine trazodone zolpidem (intended use unclear): chlorpromazine Allergies Allergy/AdvReac Type Severity Reaction Status Date / Time aspirin Allergy Unknown TAKES Verified 11/16/23 16:07 COUMADIN salicylates AdvReac Unknown ?DUE TO Verified 11/16/23 16:07 COUMADIN? Home Medications Medication Instructions Recorded Confirmed Type albuterol sulfate 5 mg/mL(0.5 %) 2.5 mg inhalation DIRECTED PRN 08/20/22 11/16/23 History solution for nebulization Shortness Of Breath Or Wheezing albuterol sulfate 90 mcg/actuation 2 puff inhalation QID PRN sob 08/20/22 11/16/23 History aerosol inhaler acetaminophen 300 mg-codeine 30 mg 1 tab PO Q6 PRN Moderate Pain 07/15/23 11/16/23 History tablet (Scale Score 5-6) omeprazole 20 mg capsule,delayed 20 mg PO AMHS 07/15/23 11/16/23 History release potassium chloride 10 mEq 10 meq PO AMHS 07/15/23 11/16/23 History capsule,extended release solifenacin 10 mg tablet 10 mg PO QAM 07/15/23 11/16/23 History montelukast 10 mg tablet 10 mg PO HS #30 tabs 07/23/23 11/16/23 Rx apixaban 5 mg tablet (Eliquis) 5 mg PO BID 11/16/23 11/16/23 History baclofen 10 mg tablet 10 mg PO TID PRN .muscle spasm 11/16/23 11/16/23 History cholecalciferol (vitamin D3) 1,250 50,000 unit PO WE 11/16/23 11/16/23 History mcg (50,000 unit) capsule donepezil 5 mg tablet 5 mg PO QAM 11/16/23 11/16/23 History furosemide 40 mg tablet 40 mg PO BID 11/16/23 11/16/23 History ipratropium 0.5 mg-albuterol 3 mg 3 ml inhalation QID PRN Shortness 11/16/23 11/16/23 History (2.5 mg base)/3 mL nebulization Of Breath Or Wheezing soln iron,carbonyl 65 mg-vitamin C 125 2 tab PO QAM 11/16/23 11/16/23 History mg tablet,delayed release (Vitron-C) isosorbide mononitrate 30 mg 30 mg PO DAILY 11/16/23 11/16/23 History tablet,extended release 24 hr lorazepam 0.5 mg tablet 0.5 mg PO Q12H PRN Anxiety 11/16/23 11/16/23 History metoprolol succinate 25 mg 25 mg PO QAM 11/16/23 11/16/23 History tablet,extended release 24 hr mirtazapine 30 mg tablet 30 mg PO HS 11/16/23 11/16/23 History nystatin 100,000 unit/gram topical 1 applic topical BID 11/16/23 11/16/23 History powder ([facility]) ramelteon 8 mg tablet 8 mg PO HS 11/16/23 11/16/23 History sertraline 50 mg tablet 50 mg PO HS 11/16/23 11/16/23 History Patient History Medical History (Updated 11/16/23 @ 21:26 by Mar Brand, ) Swelling of left hand Encounter for pre-operative examination Sleep apnea mild RUFINA (dx in ) no machine currently -- pt to have another sleep study february 2023. Osteoarthritis Degenerative disc disease Urinary incontinence Peripheral neuropathy Anemia Congestive heart failure follows with [facility] cardiology (Patricia banks) Hypertension Dementia "very early stages" Alert and oriented x3. granddaughter is the caregiver of patient. Post traumatic stress disorder On home oxygen therapy continuous 3lpm via n/c. (will increase to 4lpm via n/c if needed) History of COVID-19 Spring 2020. treated at [facility] inpatient. symptoms included: sob, cough, desaturation 84-87%, congestion, headache, fatigue. no ventilator at the time. no current problems. Diarrhea started about 1 year ago -- will come and go. Chronic respiratory failure with hypoxia COPD (chronic obstructive pulmonary disease) Submucosal lesion of stomach Noted on EGD 11/06/20 Anticoagulated on Coumadin Paroxysmal A-vince feels her heart race at times. Chronic pain on daily narcotics (tramadol PRN) Morbid obesity Anxiety and depression History of stroke "embolic stroke, underlying PFO" total of 9 strokes -> last stroke ~6+years ago. damaged urinary nerve and mild left sided weakness. Surgical History Hx of lumpectomy left breast (benign) History of cataract surgery bilateral History of cardiac cath Critical access hospital - "long time ago" -- pt unsure of details. H/O colonoscopy H/O esophagogastroduodenoscopy Status post hernia repair Right inguinal Status post hysterectomy MERT with BSO Status post cholecystectomy Family History Grandmother (Maternal) FHx: bladder cancer Father FHx: stroke Other Heart disease No family history of adverse response to anesthesia Social History Smoking Status: Former smoker Tobacco Type: Cigarettes Second Hand Exposure: No; Do You Dip or Chew Tobacco: No; Hx Alcohol Use: No Hx Substance Use: No Preferred Language: Luxembourger Communication Ability: Effective Blood Coordinator Required: No Beliefs That Will Affect Care: None marital status: / Current Living Situation: Alone Current Living Situation Comment: Granddaughter is the caregiver. Comes M-F 8am-4pm. Other Information That Helps Us Care for You: No Feels Safe at Home: Yes Safety Concerns: Feels Safe At This Time Assistive Devices: Hospital Bed, Oxygen - Continuous and Walker Physical Exam Psychiatric: Orientation: alert, oriented to person, oriented to place and + guarded; + not oriented to time Apperance: appropriately dressed and + disheveled Eye Contact: + fair eye contact Motor Behavior: + psychomotor retardation Speech: normal rate/rhythm/volume of speech Affect: + anxious affect, + tearful affect and + labile affect Mood: + depressed mood and + anxious mood Thought Process: + looseness of associations and + concrete thought process Thought Content: reality based without delusions Suicidal Thoughts: denies suicidal thoughts, denies suicidal plan and denies suicidal intent Homicidal Thoughts: denies homicidal thoughts Hallucinations: no auditory hallucinations and no visual hallucinations Cognition: language grossly intact; + recent memory not intact, + remote memory not intact and + attention not intact Estimated Intelligence: consistent with education level Insight: + severely impaired insight Judgment: + severely impaired judgement Vital Signs (Past 24 Hours): Last Vital Signs Temp 36.6 C 11/20/23 15:08 Pulse 73 11/20/23 15:21 Resp 20 11/20/23 15:17 BP 133/66 11/20/23 15:08 Pulse Ox 97 11/20/23 15:17 O2 Del Method Nasal Cannula 11/20/23 15:17 O2 Flow Rate 5 11/20/23 15:17 Exam Statement: Physical exams were performed in the ED and by the admitting hospitalist for the purposes of medical clearance. I accept those physicals as correct and adequateand have incorporated that information into my assessment. Review of Systems endorses essentially every ROS item I ask about Results & Data (PSY) Medications Administered Acetaminophen (Acetaminophen 325 Mg Tab) 650 mg PO Q4H PRN PRN Reason: Pain or Fever Stop: 12/16/23 19:21 Last Admin: 11/20/23 16:30 Dose: 650 mg Documented By: Admin: 11/20/23 10:31 Dose: 650 mg Documented By: Admin: 11/20/23 06:27 Dose: 650 mg Documented By: Admin: 11/19/23 20:53 Dose: 650 mg Documented By: Admin: 11/19/23 15:41 Dose: 650 mg Documented By: Admin: 11/19/23 06:08 Dose: 650 mg Documented By: Admin: 11/19/23 00:32 Dose: 650 mg Documented By: Admin: 11/18/23 18:38 Dose: 650 mg Documented By: Admin: 11/18/23 01:44 Dose: 650 mg Documented By: Admin: 11/17/23 14:14 Dose: 650 mg Documented By: POONAM Albuterol (Albut/Ipratrop 3mg/0.5mg Neb 3 Ml Vial) 3 ml NEB Q4R MARY; Protocol Stop: 12/18/23 10:59 Last Admin: 11/20/23 15:16 Dose: 3 ml Documented By: Admin: 11/20/23 11:09 Dose: 3 ml Documented By: Admin: 11/20/23 07:39 Dose: 3 ml Documented By: Admin: 11/20/23 02:21 Dose: Not Given Documented By: Admin: 11/19/23 22:16 Dose: Not Given Documented By: Admin: 11/19/23 20:28 Dose: Not Given Documented By: Admin: 11/19/23 15:01 Dose: 3 ml Documented By: Admin: 11/19/23 10:45 Dose: 3 ml Documented By: [id number] Admin: 11/19/23 07:30 Dose: 3 ml Documented By: JAPorter Admin: 11/19/23 02:26 Dose: Not Given Documented By: Admin: 11/18/23 22:51 Dose: 3 ml Documented By: Admin: 11/18/23 19:44 Dose: 3 ml Documented By: Admin: 11/18/23 14:42 Dose: 3 ml Documented By: [id number] Admin: 11/18/23 10:40 Dose: 3 ml Documented By: LUANNE Apixaban (Apixaban 5 Mg Tablet) 5 mg PO BID [facility] Stop: 12/16/23 21:14 Last Admin: 11/20/23 09:37 Dose: 5 mg Documented By: Admin: 11/19/23 20:44 Dose: 5 mg Documented By: Admin: 11/19/23 09:30 Dose: 5 mg Documented By: Admin: 11/18/23 21:19 Dose: 5 mg Documented By: Admin: 11/18/23 09:03 Dose: Not Given Documented By: Admin: 11/17/23 21:13 Dose: 5 mg Documented By: Admin: 11/17/23 10:29 Dose: 5 mg Documented By: Admin: 11/16/23 23:44 Dose: 5 mg Documented By: Budesonide (Budesonide 0.5 Mg/2 Ml Vial (Pulmicort)) 0.5 mg NEB BIDR [facility] Stop: 12/18/23 18:59 Last Admin: 11/20/23 07:39 Dose: 0.5 mg Documented By: Admin: 11/19/23 20:28 Dose: Not Given Documented By: Admin: 11/19/23 07:31 Dose: 0.5 mg Documented By: Admin: 11/18/23 19:44 Dose: 0.5 mg Documented By: NORMA Donepezil HCl (Donepezil Hcl 5 Mg Tab) [facility] [place]: 12/17/23 08:59 Last Admin: 11/20/23 09:37 Dose: 5 mg Documented By: Admin: 11/19/23 09:30 Dose: 5 mg Documented By: Admin: 11/18/23 09:50 Dose: 5 mg Documented By: Admin: 11/17/23 09:02 Dose: 5 mg Documented By: POONAM Ceftriaxone Sodium 2,000 mg/ (Dextrose) 50 mls @ 100 mls/hr IV Q24H MARY; Protocol Stop: 11/22/23 14:59 Last Admin: 11/20/23 16:44 Dose: 100 mls/hr Documented By: Infusion: 11/19/23 16:50 Dose: Infused Documented By: Admin: 11/19/23 15:42 Dose: 100 mls/hr Documented By: Infusion: 11/18/23 16:07 Dose: Infused Documented By: Admin: 11/18/23 15:12 Dose: 100 mls/hr Documented By: Infusion: 11/17/23 17:47 Dose: Infused Documented By: Admin: 11/17/23 16:20 Dose: 100 mls/hr Documented By: POONAM Lorazepam (Lorazepam 0.5 Mg Tab) 0.5 mg PO Q8H PRN PRN Reason: Anxiety Stop: 12/19/23 09:45 Last Admin: 11/20/23 14:42 Dose: 0.5 mg Documented By: Admin: 11/20/23 06:27 Dose: 0.5 mg Documented By: Admin: 11/19/23 20:53 Dose: 0.5 mg Documented By: ESTEFANIA Metoprolol Succinate (Metoprolol Succ 25mg Ext Rel Tab) [facility] [place] Stop: 12/17/23 08:59 Last Admin: 11/20/23 09:37 Dose: 25 mg Documented By: Admin: 11/19/23 09:31 Dose: 25 mg Documented By: Admin: 11/18/23 09:50 Dose: Not Given Documented By: Admin: 11/17/23 09:02 Dose: 25 mg Documented By: POONAM Mirtazapine (Mirtazapine Tab 15 Mg Tab) 30 mg PO MARY Stop: 12/17/23 20:59 Last Admin: 11/19/23 20:43 Dose: 30 mg Documented By: Admin: 11/18/23 21:22 Dose: 30 mg Documented By: Admin: 11/17/23 20:11 Dose: 30 mg Documented By: GEOVANNY Miscellaneous (Ramelteon 8 Mg - Order Awaiting Action) 1 each N/A MARY Stop: 12/17/23 00:00 Last Admin: 11/20/23 16:48 Dose: Not Given Documented By: Admin: 11/20/23 09:17 Dose: Not Given Documented By: Admin: 11/20/23 00:06 Dose: Not Given Documented By: Admin: 11/19/23 15:26 Dose: Not Given Documented By: Admin: 11/19/23 07:42 Dose: Not Given Documented By: Admin: 11/18/23 23:34 Dose: Not Given Documented By: Admin: 11/18/23 14:57 Dose: Not Given Documented By: Admin: 11/18/23 08:10 Dose: Not Given Documented By: Admin: 11/17/23 23:40 Dose: Not Given Documented By: Admin: 11/17/23 16:20 Dose: Not Given Documented By: Admin: 11/17/23 09:01 Dose: Not Given Documented By: Admin: 11/17/23 00:40 Dose: Not Given Documented By: Montelukast Sodium (Montelukast Sodium 10 Mg Tablet) 10 mg PO [facility] Stop: 12/16/23 21:14 Last Admin: 11/19/23 20:43 Dose: 10 mg Documented By: Admin: 11/18/23 21:23 Dose: 10 mg Documented By: Admin: 11/17/23 20:12 Dose: 10 mg Documented By: Admin: 11/16/23 22:11 Dose: 10 mg Documented By: NEGRITO Ondansetron HCl (Ondansetron Inj 2 Mg/Ml 2 Ml Vial) 4 mg IV Q6H PRN PRN Reason: Nausea Stop: 12/16/23 19:21 Last Admin: 11/17/23 09:02 Dose: 4 mg Documented By: Admin: 11/17/23 02:06 Dose: 4 mg Documented By: BLAINE Pantoprazole Sodium (Pantoprazole 40 Mg Tab) 40 mg PO [facility] Stop: 12/16/23 21:14 Last Admin: 11/20/23 09:37 Dose: 40 mg Documented By: Admin: 11/19/23 20:43 Dose: 40 mg Documented By: Admin: 11/19/23 09:30 Dose: 40 mg Documented By: Admin: 11/18/23 21:22 Dose: 40 mg Documented By: Admin: 11/18/23 09:51 Dose: 40 mg Documented By: Admin: 11/17/23 20:12 Dose: 40 mg Documented By: Admin: 11/17/23 10:29 Dose: 40 mg Documented By: Admin: 11/16/23 22:11 Dose: 40 mg Documented By: NEGRITO Phenazopyridine HCl (Phenazopyridine Hcl 100 Mg Tab) 100 mg PO TID PRN PRN Reason: burning urination Stop: 12/19/23 09:44 Last Admin: 11/19/23 20:43 Dose: 100 mg Documented By: Admin: 11/19/23 10:29 Dose: 100 mg Documented By: ANGEL Sertraline HCl (Sertraline Hcl 50 Mg Tablet) 50 mg PO [facility] Stop: 12/16/23 21:44 Last Admin: 11/19/23 20:43 Dose: 50 mg Documented By: Admin: 11/18/23 21:23 Dose: 50 mg Documented By: Admin: 11/17/23 20:11 Dose: 50 mg Documented By: Admin: 11/16/23 22:11 Dose: 50 mg Documented By: NEGRITO Tramadol HCl (Tramadol Hcl 50 Mg Tablet) 50 mg PO Q6H PRN PRN Reason: severe pain Stop: 12/16/23 21:14 Last Admin: 11/20/23 13:04 Dose: 50 mg Documented By: Admin: 11/20/23 06:27 Dose: 50 mg Documented By: Admin: 11/19/23 20:54 Dose: 50 mg Documented By: Admin: 11/19/23 12:59 Dose: 50 mg Documented By: Admin: 11/19/23 06:09 Dose: 50 mg Documented By: Admin: 11/19/23 00:32 Dose: 50 mg Documented By: Admin: 11/18/23 18:38 Dose: 50 mg Documented By: Admin: 11/18/23 12:21 Dose: 50 mg Documented By: Admin: 11/18/23 06:06 Dose: 50 mg Documented By: Admin: 11/17/23 20:24 Dose: 50 mg Documented By: Admin: 11/17/23 14:15 Dose: 50 mg Documented By: Admin: 11/16/23 21:17 Dose: 50 mg Documented By: NEGRITO Coding Level of Care Code 58059 [facility] Int Hosp Care Lvl 3 Diagnoses SIMA (generalized anxiety disorder) F41.1 Dementia F03.90 Time Spent (min) 230
[2023-11-20] MEDS: SERTRALINE HCL 50 MG TABLET PO SCH (20:04)
[2023-11-20] MEDS: MONTELUKAST SODIUM 10 MG TABLET PO SCH (20:04)
[2023-11-20] MEDS: MIRTAZAPINE TAB 15 MG TAB PO SCH (20:05)
[2023-11-21] MEDS: ALBUT/IPRATROP 3MG/0.5MG NEB 3 ML VIAL NEB SCH ×6 (02:31→22:44)
[2023-11-21] MEDS: APIXABAN 5 MG TABLET PO SCH ×2 (07:05→20:49)
[2023-11-21] MEDS: DONEPEZIL HCL 5 MG TAB PO SCH (07:06)
[2023-11-21] MEDS: predniSONE 20 MG TAB PO SCH (07:06)
[2023-11-21] MEDS: PANTOprazole 40 MG TAB PO SCH ×2 (07:07→20:49)
[2023-11-21 07:10] LABS: Calcium 8.4 mg/dl (8.6-10.3); Est GFR (African American) 82.2 ml/min; Est GFR (Non-African American) 70.9 ml/min; Potassium 4.6 mmol/L (3.5-5.1)
[2023-11-21 07:11] LABS: Basophils # (auto) 0.03 K/uL (0.00-0.20); Basophils % (auto) 0.3 %; Eosinophils # (auto) 0.01 K/uL (0.00-0.50); Eosinophils % (auto) 0.1 %; Hematocrit (blood only) 31.7 % (37.0-47.0); Hemoglobin 9.9 g/dl (12.0-16.0); Immature Granulocytes # (auto) 0.21 K/uL (0.01-0.20); Immature Granulocytes % (auto) 1.8 %; Lymphocytes % (auto) 20.1 %; Mean Corpuscular Hemoglobin 30.7 pg (25.0-34.0); Mean Corpuscular Hgb Conc 31.2 g/dL (32.0-36.0); Mean Corpuscular Volume 98.4 fL (80.0-100.0); Mean Platelet Volume 8.9 fL (9.4-12.4); Monocytes # (auto) 0.83 K/uL (0.11-0.59); Monocytes % (auto) 7.3 %; Neutrophils # (auto) 8.06 K/uL (1.40-6.50); Neutrophils % (auto) 70.4 %; Platelet Count 380 K/uL (130-400); RDW Coefficient of Variation 27.9 % (11.5-14.5); RDW Standard Deviation 96.3 fL (36.4-46.3); Red Blood Count 3.22 M/uL (4.20-5.40); White Blood Count 11.44 K/ul (4.8-10.8)
[2023-11-21] MEDS: PHENAZOPYRIDINE HCL 100 MG TAB PO PRN ×3 (07:13→20:48)
[2023-11-21] MEDS: LORazepam 0.5 MG TAB PO PRN (07:20)
[2023-11-21] MEDS: traMADol HCL 50 MG TABLET PO PRN ×3 (07:20→20:48)
[2023-11-21] MEDS: BUDESONIDE 0.5 MG/2 ML VIAL (PULMICORT) NEB SCH ×2 (07:34→19:45)
[2023-11-21 07:41] LABS: Anisocytosis Present; Polychromasia 1+
[2023-11-21] MEDS ORDERED: DONEPEZIL HCL 5 MG TAB PO ONE (08:15)
[2023-11-21] MEDS ORDERED: DONEPEZIL HCL 10 MG TAB PO SCH (09:00)
[2023-11-21] MEDS: ACETAMINOPHEN 325 MG TAB PO PRN ×3 (12:02→20:47)
--- NOTE | 2023-11-21 13:12 | Hospitalist Progress Note ---
Date of Service November 21, 2023 Assessment & Plan (1) Nausea, vomiting, and diarrhea: (2) Generalized weakness: Plan: Patient presents to the hospital due to nausea vomiting and diarrhea for 2 weeks. Reports that the diarrhea is watery; no blood or mucus seen. Stool PCR negative C. difficile negative Advance diet as tolerated. Started on loperamide for loose stool. PT OT recommends rehab; patient accepted at [facility]; no bed available for transfer (3) Hypomagnesemia: Plan: Likely secondary to diarrhea illness. Patient is also on PPI therapy. Repleted (4) Hypokalemia: Plan: K 2.5 on admission secondary to significant vomiting over the past week with poor p.o. intake. Was repleted with IV and oral supplements. Potassium stable and within normal limits (5) Chronic respiratory failure: (6) COPD (chronic obstructive pulmonary disease): Plan: COPD exacerbation Bilateral wheeze present. Improved on today's examination. Continue [id number] DuoNeb. Started on steroids; plan to treat for 5 days Budesonide nebulizer twice daily as well (7) PAF (paroxysmal atrial fibrillation): Plan: Chronic, stable. Continue metoprolol and apixaban per home regimen. (8) Morbid obesity: Plan: Continue treatment for depression and efforts for weight loss. Outpatient counseling recommended. (9) Anxiety and depression: Plan: Acute reconsulted during the hospitalization. They recommend Ativan [id number] every 8 hours Recommended to increase doxepin to 10 mg once a day and stop sertraline. (10) Dementia: Plan: Dose of donepezil increased to 10 mg once a day. Granddaughter is caretaker grounds. DVT prophylaxis apixaban Full code Disposition-telemetry. OT recommends rehab; patient accepted to acute rehab. Discharge when bed is available at rehab. Time spent evaluating patient, direct bedside care, chart review, placing orders, interpretation of diagnostic studies, discussion with consultants, patient, and family members, as well as other required patient management activities is 50-minutes Please note the above document was generated using voice recognition software. It may contain grammatical, syntax or spelling errors. Any formal questions or concerns about the content, text or information contained within the body of this dictation should be directly addressed to the provider for clarification Admission and Anticipated Discharge Date Admission Date: November 16, 2023 Subjective Patient seen and examined at bedside. Comfortable; not in distress. Denies fever, chills, chest pain, shortness of breath, abdominal pain or urinary symptoms. No significant overnight events Review of Systems Review of Systems: All systems reviewed & are unremarkable except as noted in Subjective Physical Exam Physical Exam: Constitutional: Awake, alert oriented x 3. Not in any distress. Morbidly obese Respiratory: Bilateral clear breath sounds. Minimal wheeze. Cardiovascular: RRR, no murmur, no edema Vessels: no JVD or carotid bruit Chest: normal inspection of chest Abdomen: Slightly distended, nontender. Musculoskeletal: no cyanosis or clubbing, Skin: no rashes, warm and dry normal turgor Results & Data Results & Data Vital Signs (Past 12 Hours) Vital Signs Temp Pulse Pulse Resp BP BP Pulse Ox 11/21/23 11:23 36.7 C 73 18 133/81 93 11/21/23 08:27 70 11/21/23 07:36 78 20 93 11/21/23 07:35 36.4 C L 73 18 114/62 98 11/21/23 07:31 11/21/23 02:49 36.4 C L 77 18 107/58 L 97 O2 Del Method O2 Flow Rate 11/21/23 11:23 Nasal Cannula 3 11/21/23 08:27 11/21/23 07:36 Nasal Cannula 5 11/21/23 07:35 Nasal Cannula 3 11/21/23 07:31 Nasal Cannula 5 11/21/23 02:49 Nasal Cannula 5 (5) Chronic respiratory failure Respiratory failure complication: hypoxia Qualified Code(s): J96.11 - Chronic respiratory failure with hypoxia
[2023-11-21] MEDS: LORazepam 0.5 MG TAB PO SCH ×2 (15:07→22:33)
[2023-11-21] MEDS: cefTRIAXone SODIUM 2,000 MG in DEXTROSE 5 % MINI-B 50 ML IV SCH (17:12)
[2023-11-21] MEDS: MIRTAZAPINE TAB 15 MG TAB PO SCH (20:49)
[2023-11-21] MEDS: MONTELUKAST SODIUM 10 MG TABLET PO SCH (20:49)
[2023-11-21] MEDS: ONDANSETRON INJ 2 MG/ML 2 ML VIAL IV PRN (20:59)
[2023-11-22] MEDS: ALBUT/IPRATROP 3MG/0.5MG NEB 3 ML VIAL NEB SCH ×6 (02:19→23:20)
[2023-11-22] MEDS: ACETAMINOPHEN 325 MG TAB PO PRN ×2 (05:53→19:57)
[2023-11-22] MEDS: traMADol HCL 50 MG TABLET PO PRN ×3 (05:53→19:57)
[2023-11-22] MEDS: LORazepam 0.5 MG TAB PO SCH ×3 (05:53→21:34)
[2023-11-22 06:58] LABS: Basophils # (auto) 0.03 K/uL (0.00-0.20); Basophils % (auto) 0.3 %; Eosinophils # (auto) 0.06 K/uL (0.00-0.50); Eosinophils % (auto) 0.6 %; Hematocrit (blood only) 31.7 % (37.0-47.0); Hemoglobin 10.4 g/dl (12.0-16.0); Immature Granulocytes # (auto) 0.17 K/uL (0.01-0.20); Immature Granulocytes % (auto) 1.6 %; Lymphocytes # (auto) 2.89 K/uL (1.20-3.40); Lymphocytes % (auto) 26.8 %; Mean Corpuscular Hemoglobin 31.3 pg (25.0-34.0); Mean Corpuscular Hgb Conc 32.8 g/dL (32.0-36.0); Mean Corpuscular Volume 95.5 fL (80.0-100.0); Mean Platelet Volume 8.8 fL (9.4-12.4); Monocytes # (auto) 0.78 K/uL (0.11-0.59); Monocytes % (auto) 7.2 %; Neutrophils # (auto) 6.86 K/uL (1.40-6.50); Neutrophils % (auto) 63.5 %; Nucleated RBC # (auto) 0.02 K/uL (0.00-0.12); Nucleated RBC % (auto) 0.2 %; Platelet Count 414 K/uL (130-400); RDW Coefficient of Variation 27.6 % (11.5-14.5); Red Blood Count 3.32 M/uL (4.20-5.40); White Blood Count 10.79 K/ul (4.8-10.8)
[2023-11-22 07:21] LABS: Anisocytosis Present; Hypersegmented Neutrophils 1+; Polychromasia 2+
[2023-11-22] MEDS: BUDESONIDE 0.5 MG/2 ML VIAL (PULMICORT) NEB SCH ×2 (07:21→20:11)
[2023-11-22 07:29] LABS: Calcium 8.4 mg/dl (8.6-10.3); Creatinine Clr Calc Pharmacy 87.7 ml/min; Est GFR (Non-African American) 69.9 ml/min; Potassium 4.5 mmol/L (3.5-5.1)
[2023-11-22] MEDS: PANTOprazole 40 MG TAB PO SCH ×2 (08:03→19:59)
[2023-11-22] MEDS: METOPROLOL SUCC 25MG EXT REL TAB PO SCH (08:03)
[2023-11-22] MEDS: APIXABAN 5 MG TABLET PO SCH ×2 (08:03→19:58)
[2023-11-22] MEDS: DONEPEZIL HCL 10 MG TAB PO SCH (08:03)
[2023-11-22] MEDS: predniSONE 20 MG TAB PO SCH (08:30)
--- NOTE | 2023-11-22 12:15 | Psychiatric Progress Note ---
Date of Service November 22, 2023 Impression / Recommendations Impression 11/22/2023: Pt's lorazepam dose was changed, but to "Q8H", which is not an actual change from the previous "TID PRN" order since she'd never missed a dose. As noted previously, with lorazepam's usual duration of action of 6-8 hours, TID or Q8H dosing might lead to significant dose level variations. This would be more likely in patients with larger volumes of distribution and in women, who often metabolize drugs more rapidly. PRN lorazepam has been stopped, as has low- dose sertraline. Pt has a self-reported diagnosis of PTSD (which may well be accurate - I just don't have access to any records reflecting that). This might explain why she ended up resuming sertraline at least 3 times. She has no documented medication trials at doses that would be likely to have an effect on PTSD symptoms. I still don't know anything about why she stopped venlafaxine and duloxetine trials she reported, nor anything about dosing. An SNRI would be my primary choice for medication that could treat depression, generalized anxiety, and PTSD and could help to a degree with some types of non-nociceptive pain. However, titration would have to be gradual and, as noted in my initial note, I think she has a good chance of rejecting anything that doesn't have an immediate effect. Pt has no recall at all of me from yesterday evening, nor of having met with the psychiatric liaison nurse earlier. She isn't sure she's had any lorazepam at all (I think because she hasn't been getting any PRN doses). 11/20/2023: 63 y/o woman with a long history of anxiety that by all available records has never been treated to her satisfaction and who has demonstrated a focus on benzodiazepines (especially lorazepam) to address this (to reiterate, this is not really documented as having been satisfactorily effective). She has had a number of losses, including the of her 17 months ago and currently the loss of her ability to function independently. She has had increasingly evident memory impairment. She has multiple significant medical problems that are vexing in themselves and that collectively account for the current plan for her to transition to rehab. Over the course of the 5 psychiatric consultations here over the past 3 years, there have been consistent recommendations to: * limit or avoid benzodiazepines (all except 11/28/2021) * start ssri or increase dose of the current one (all) * titrate buspirone dose (05/21/2021, 11/28/2021) It's possible those recommendations may have been followed during the respective hospital stays, but pt has clearly returned for subsequent admissions with very similar psychiatric medication regimens including lorazepam 0.5 mg TID, mirtazapine 30 mg QHS (which she's documented several times as saying is ineffective), an SSRI (fluoxetine or sertraline) at a very low dose (except one time when she was on sertraline 150 mg/day, which is merely "low"), and buspirone given twice a day. I think several salient points should be kept in mind when considering ways of addressing pt's anxiety, including * Pt has usually declined titration of medications likely to help after protracted delays in favor of hoping for something that will offer immediate relief. Since this has taken place over a minimum of 3 years, this strategy has clearly deprived her of medication approaches with a good likelihood of having helped years ago and has left her in roughly the same position with respect to overall control of anxiety symptoms as 3 years ago. (While we'll probably have to do something with rapid effect, it's a blunder for us not also to try to insist she use treatments with better long-term outcomes.) * The usual effective adult dose of sertraline 150-300 mg/day for depression symptoms, higher for anxiety symptoms. (She's probably never used an SSRI at a dose that's likely to have worked.) * SNRI's (e.g., venlafaxine, duloxetine, milnacipran & levomilnacipran but probably not desvenlafaxine) are considerably more effective for SIMA than SSRI's are. (Pt seems to have had trials of venlafaxine and duloxetine, which are the main realistic SNRI's and I can't tell why they were stopped.) * Donepezil is usually started at a subtherapeutic dose of 5 mg/day then titrated to 10 mg/day. * Lorazepam administered orally usually reaches peak concentrations after around 2 hours and usually has a duration of action of 6-8 hours. (Her complaint that lorazepam wears off between doses has a plausible basis.) * Administering potentially-addictive drugs on a scheduled rather than PRN basis has been shown to reduce addiction risk, probably by reducing the reward of relieving symptoms that are allowed to build to the point of requiring PRN m edication as opposed to keeping symptoms suppressed. (Scheduled lorazepam is likely to work out better than PRN.) * People with substance use disorders have a marked tendency to focus on subjective need for immediate relief and to reject approaches that require consistent effort or use over time. (Potentially-addictive PRN medications should be avoided in patients with histories of BRANDY.) * The only medication treatments we can use are the ones that exist. As trite as this sounds, the only approach that's likely to work will include being realistic about available treatments with their known benefits and drawbacks. (It's important not to keep trying to "reinvent the wheel".) I don't think we are realistically going to be able to avoid benzodiazepines in this case. We should therefore strongly consider using them on a scheduled basis and not providing PRN doses. If she's going to take sertraline, she should take a dose with a reasonable chance of efficacy, i.e., at least 200 mg/day but since the primary side effects of nausea and diarrhea coincide with the primary medical problems for which she was admitted, there may be little point in her taking it at all. (1) SIMA (generalized anxiety disorder): (2) Dementia: Plan * increase lorazepam to 0.5 mg QID (scheduled) - obviously watch for sedation or respiratory suppression * increase donepezil to 10 mg daily Interval History Identifying Information YAZAN MCKEON is a 63-year-old F with a history of Generalized Anxiety Disorder, Adjustment Disorder with Mixed Anxiety & Depressed Mood, and Opiate Use Disorder in remission, admitted on 11/16/2023 for vomiting and diarrhea. Consult is by the hospitalist service for "Severe anxiety". Chief Complaint "I need more medicine". Subjective Subjective The patient was seen and assessed and interval progress reviewed in a multidisciplinary team meeting with psychiatric liaison nursing and social work. For details, see the "Impression" section. Overall I spent a total of 62 minutes for this consultation follow-up including review of chart records, direct evaluation of the patient [id number], counseling the patient, medication education with the patient, risk assessment, discussion with the psychiatric liaison nurse, and documentation in the electronic health record. Physical Exam Psychiatric Orientation: alert, oriented to person, oriented to place and + guarded; + not oriented to time Apperance: appropriately dressed and + disheveled Eye Contact: + fair eye contact Motor Behavior: + psychomotor retardation Speech: normal rate/rhythm/volume of speech Affect: + anxious affect, + tearful affect and + labile affect Mood: + depressed mood and + anxious mood Thought Process: + looseness of associations and + concrete thought process Thought Content: reality based without delusions Suicidal Thoughts: denies suicidal thoughts, denies suicidal plan and denies suicidal intent Homicidal Thoughts: denies homicidal thoughts Hallucinations: no auditory hallucinations and no visual hallucinations Cognition: language grossly intact; + recent memory not intact, + remote memory not intact and + attention not intact Estimated Intelligence: consistent with education level Insight: + severely impaired insight Judgment: + severely impaired judgement Vital Signs (Past 24 Hours) Last Vital Signs Temp 36.7 C 11/22/23 07:37 Pulse 66 11/22/23 10:12 Resp 20 11/22/23 10:12 BP 121/72 11/22/23 07:37 Pulse Ox 91 11/22/23 10:12 O2 Del Method Nasal Cannula 11/22/23 10:12 O2 Flow Rate 5 11/22/23 10:12 Results & Data ([facility]) Laboratory Results Laboratory Results - last 24 hr 11/22/23 06:10 WBC 10.79 RBC 3.32 L Hgb 10.4 L Hct 31.7 L MCV 95.5 MCH 31.3 MCHC 32.8 RDW Std Deviation 93.0 H RDW Coeff of Ursula 27.6 H Plt Count 414 H MPV 8.8 L Immature Gran % (Auto) 1.6 Neut % (Auto) 63.5 Lymph % (Auto) 26.8 Baker % (Auto) 7.2 Eos % (Auto) 0.6 Baso % (Auto) 0.3 Neut # (Auto) 6.86 H Lymph # (Auto) 2.89 Baker # (Auto) 0.78 H Eos # (Auto) 0.06 Baso # (Auto) 0.03 Immature Gran # (Auto) 0.17 Absolute Nucleated RBC 0.02 Nucleated RBC % (auto) 0.2 Hypersegmented Neuts 1+ Polychromasia 2+ Anisocytosis Present Sodium 138 Potassium 4.5 Chloride 102 Carbon Dioxide 33 H Anion Gap 3 BUN 22 Creatinine 0.88 Est Cr Clr Drug Dosing 87.7 Est GFR ( Amer) 81.0 Est GFR (Non-Af Amer) 69.9 BUN/Creatinine Ratio 25.0 H Glucose 88 Calcium 8.4 L Current Inpatient Medications Current Inpatient Medications: Current Inpatient Medications Acetaminophen (Acetaminophen 325 Mg Tab) 650 mg PO Q4H PRN PRN Reason: Pain or Fever Stop: 12/16/23 19:21 Last Admin: 11/22/23 05:53 Dose: 650 mg Albuterol (Albuterol Hfa 8 Gm Inhaler) 2 puffs INH QIDR PRN PRN Reason: sob Stop: 12/16/23 21:11 Albuterol (Albuterol 0.083% Nebu Soln 3 Ml Vial) 2.5 mg INH DAILY PRN PRN Reason: Shortness Of Breath Or Wheezin Stop: 12/16/23 21:45 Albuterol (Albut/Ipratrop 3mg/0.5mg Neb 3 Ml Vial) 3 ml NEB Q4R [facility]; Protocol Stop: 12/18/23 10:59 Last Admin: 11/22/23 10:12 Dose: 3 ml Apixaban (Apixaban 5 Mg Tablet) 5 mg PO BID [facility] Stop: 12/16/23 21:14 Last Admin: 11/22/23 08:03 Dose: 5 mg Budesonide (Budesonide 0.5 Mg/2 Ml Vial (Pulmicort)) 0.5 mg NEB BIDR [facility] Stop: 12/18/23 18:59 Last Admin: 11/22/23 07:21 Dose: 0.5 mg Donepezil HCl (Donepezil Hcl 10 Mg Tab) 10 mg PO QAM [facility] Stop: 12/22/23 08:59 Last Admin: 11/22/23 08:03 Dose: 10 mg Ceftriaxone Sodium 2,000 mg/ (Dextrose) 50 mls @ 100 mls/hr IV Q24H [facility]; Protocol Stop: 11/22/23 14:59 Last Infusion: 11/21/23 18:44 Dose: Infused Loperamide HCl (Loperamide Hcl 2 Mg Cap) 2 mg PO Q6H PRN PRN Reason: Diarrhea Stop: 12/19/23 12:29 Lorazepam (Lorazepam 0.5 Mg Tab) 0.5 mg PO Q8H [facility] Stop: 12/21/23 14:59 Last Admin: 11/22/23 05:53 Dose: 0.5 mg Metoprolol Succinate (Metoprolol Succ 25mg Ext Rel Tab) 25 mg PO QAM [facility] Stop: 12/17/23 08:59 Last Admin: 11/22/23 08:03 Dose: 25 mg Miconazole Nitrate (Miconazole Nitrate Powder 85 Gm) 1 appln EXT PRN PRN PRN Reason: Affected Skin Folds Stop: 12/18/23 21:20 Mirtazapine (Mirtazapine Tab 15 Mg Tab) 30 mg PO HS [facility] Stop: 12/17/23 20:59 Last Admin: 11/21/23 20:49 Dose: 30 mg Miscellaneous (Ramelteon 8 Mg - Order Awaiting Action) 1 each N/A QS [facility] Stop: 12/17/23 00:00 Last Admin: 11/22/23 07:54 Dose: Not Given Montelukast Sodium (Montelukast Sodium 10 Mg Tablet) 10 mg PO HS [facility] Stop: 12/16/23 21:14 Last Admin: 11/21/23 20:49 Dose: 10 mg Ondansetron HCl (Ondansetron Inj 2 Mg/Ml 2 Ml Vial) 4 mg IV Q6H PRN PRN Reason: Nausea Stop: 12/16/23 19:21 Last Admin: 11/21/23 20:59 Dose: 4 mg Pantoprazole Sodium (Pantoprazole 40 Mg Tab) 40 mg PO AMHS [facility] Stop: 12/16/23 21:14 Last Admin: 11/22/23 08:03 Dose: 40 mg Phenazopyridine HCl (Phenazopyridine Hcl 100 Mg Tab) 100 mg PO TID PRN PRN Reason: burning urination Stop: 12/19/23 09:44 Last Admin: 11/21/23 20:48 Dose: 100 mg Tramadol HCl (Tramadol Hcl 50 Mg Tablet) 50 mg PO Q6H PRN PRN Reason: severe pain Stop: 12/16/23 21:14 Last Admin: 11/22/23 11:55 Dose: 50 mg
[2023-11-22] MEDS: LIDOCAINE 5% 1 PATCH TD SCH (16:10)
[2023-11-22] MEDS: DICLOFENAC SOD 1% GEL 100 GM TUBE EXT SCH ×2 (16:16→19:59)
--- NOTE | 2023-11-22 18:59 | Hospitalist Progress Note ---
Date of Service November 22, 2023 Assessment & Plan (1) Generalized weakness: (2) Nausea, vomiting, and diarrhea: (3) UTI (urinary tract infection): (4) Acute hypokalemia: (5) Dementia: (6) SIMA (generalized anxiety disorder): (7) Hip pain: (8) COPD with exacerbation: (9) Atrial fibrillation: (10) Chronic respiratory failure: Plan Pt is a 63yoF with PMHx significant for COPD on chronic 4L of oxygen, paroxysmal atrial fibrillation on Eliquis, chronic diastolic CHF, RUFINA, obesity hypoventilation, history of multiple strokes admitted with concerning N/V/D and associated weakness. Nausea, vomiting, and diarrhea Generalized weakness Presented with 1 week of N/V/D and abdominal pain, unable to tolerate food WBC was elevated on admission, >12K, has since decreased and normalized CT abd/pelvis with no acute concerns COVID, flu and RSV negative Stool PCR negative C. difficile negative Loperamide and Zofran prn Diet was advanced as tolerated PT/OT for weakness- recommending rehab, patient accepted at [facility]; bed available for transfer in the next few days Complicated UTI UA from 11/14, 2 days before admission suggestive of infection Urine Cx from 11/14 grew pansensitive E coli WBC elevated as noted above Possible cause of presenting symptoms noted above Treated with 5 days of IV Rocephin Anxiety and depression Acute Psychiatry re-consulted, appreciate recs -recommending scheduled Ativan 0.5mg QID (prn with no benefit for her), increasing donepezil to 10mg -d/c zoloft Of note pt also receiving ordered PRN narcotics (tramadol) right on schedule (see below), monitor in setting of scheduled benzo recommended. Chronic Pain Pt with complaints of left hip pain that she states is "bone on bone" Currently receiving ordered PRN tramadol and Tylenol right on schedule Topical diclofenac and lidocaine patches added If pain persistent, consider imaging of the hip Cautious use of narcotics in setting of scheduled Ativan recommended by Psychiatry noted above Hypomagnesemia Noted on admission, mag 1.5 Likely secondary to diarrhea illness. Patient is also on PPI therapy. Repleted as needed Hypokalemia K 2.5 on admission secondary to significant vomiting over the past week with poor p.o. intake. Was repleted with IV and oral supplements. Potassium stable and within normal limits Chronic respiratory failure COPD (chronic obstructive pulmonary disease) COPD exacerbation Wheezing present DuoNebs and budesonide nebs scheduled PRN inhalers Continue home singulair Oxygen supplementation as needed Continue to monitor respiratory status in setting of tramadol and scheduled Ativan use PAF (paroxysmal atrial fibrillation) Chronic, stable. Continue metoprolol and apixaban per home regimen Morbid obesity Continue treatment for depression and efforts for weight loss. Outpatient counseling recommended. Dementia Dose of donepezil increased to 10 mg once a day per psych recs. Granddaughter is professor in family studies. Diet: Regular DVT prophylaxis: apixaban CODE STATUS: Full code Dispo: Pt to be discharged to [facility] Admission and Anticipated Discharge Date Admission Date: November 16, 2023 Subjective Pt was seen laying in bed eating lunch. Was tearful noting that she is in a lot of pain. States that pain is mostly in the left hip and goes down her legs. Review of Systems Review of Systems: All systems reviewed & are unremarkable except as noted in Subjective Physical Exam Physical Exam: General: Alert, oriented. tearful Skin: No noted rashes or bruises Psych: tearful mood and affect Neuro: Difficulty moving in bed HEENT: NC/AT CV: RRR Resp: Wheezy on exam, no increased effort of breathing. Abdomen: Soft, tender in lower quadrants Extremities: No edema in lower extremities bilaterally. Results & Data Results & Data Vital Signs (Past 12 Hours) Vital Signs Temp Pulse Pulse Resp BP Pulse Ox O2 Del Method 11/22/23 12:37 36.6 C 76 16 128/85 98 Nasal Cannula 11/22/23 10:12 66 20 91 Nasal Cannula 11/22/23 08:30 Nasal Cannula 11/22/23 07:37 36.7 C 79 16 121/72 98 Nasal Cannula 11/22/23 07:21 68 18 97 Nasal Cannula 11/22/23 03:56 36.6 C 76 20 118/73 97 Nasal Cannula O2 Flow Rate 11/22/23 12:37 5 11/22/23 10:12 5 11/22/23 08:30 5 11/22/23 07:37 5 11/22/23 07:21 5 11/22/23 03:56 5 (10) Chronic respiratory failure Respiratory failure complication: hypoxia Qualified Code(s): J96.11 - Chronic respiratory failure with hypoxia
[2023-11-22] MEDS: PHENAZOPYRIDINE HCL 100 MG TAB PO PRN (19:58)
[2023-11-22] MEDS: MONTELUKAST SODIUM 10 MG TABLET PO SCH (19:58)
[2023-11-22] MEDS: MIRTAZAPINE TAB 15 MG TAB PO SCH (19:58)
[2023-11-23] MEDS: ALBUT/IPRATROP 3MG/0.5MG NEB 3 ML VIAL NEB SCH ×6 (03:10→23:38)
[2023-11-23] MEDS: ACETAMINOPHEN 325 MG TAB PO PRN ×3 (06:05→15:04)
[2023-11-23] MEDS: traMADol HCL 50 MG TABLET PO PRN ×2 (06:05→12:05)
[2023-11-23 06:13] LABS: Basophils # (auto) 0.02 K/uL (0.00-0.20); Basophils % (auto) 0.2 %; Eosinophils # (auto) 0.03 K/uL (0.00-0.50); Eosinophils % (auto) 0.3 %; Hematocrit (blood only) 31.6 % (37.0-47.0); Hemoglobin 9.8 g/dl (12.0-16.0); Immature Granulocytes # (auto) 0.17 K/uL (0.01-0.20); Immature Granulocytes % (auto) 1.5 %; Lymphocytes # (auto) 2.27 K/uL (1.20-3.40); Lymphocytes % (auto) 20.5 %; Mean Corpuscular Hemoglobin 29.9 pg (25.0-34.0); Mean Corpuscular Volume 96.3 fL (80.0-100.0); Mean Platelet Volume 8.5 fL (9.4-12.4); Monocytes # (auto) 0.73 K/uL (0.11-0.59); Monocytes % (auto) 6.6 %; Neutrophils # (auto) 7.87 K/uL (1.40-6.50); Neutrophils % (auto) 70.9 %; Nucleated RBC # (auto) 0.02 K/uL (0.00-0.12); Nucleated RBC % (auto) 0.2 %; Platelet Count 388 K/uL (130-400); RDW Coefficient of Variation 27.3 % (11.5-14.5); RDW Standard Deviation 92.4 fL (36.4-46.3); Red Blood Count 3.28 M/uL (4.20-5.40); White Blood Count 11.09 K/ul (4.8-10.8)
[2023-11-23 06:42] LABS: BUN Creatinine Ratio 33.7 (10-20); Calcium 8.3 mg/dl (8.6-10.3); Creatinine Clr Calc Pharmacy 90.6 ml/min; Est GFR (African American) 83.3 ml/min; Est GFR (Non-African American) 71.9 ml/min; Magnesium 1.9 mg/dl (1.7-2.4); Phosphorus 3.8 mg/dl (2.5-4.9); Potassium 4.8 mmol/L (3.5-5.1)
[2023-11-23 06:50] LABS: Anisocytosis Present; Hypochromasia Present
[2023-11-23] MEDS: BUDESONIDE 0.5 MG/2 ML VIAL (PULMICORT) NEB SCH ×2 (07:33→20:29)
[2023-11-23] MEDS: METOPROLOL SUCC 25MG EXT REL TAB PO SCH (08:02)
[2023-11-23] MEDS: LORazepam 0.5 MG TAB PO SCH ×4 (08:02→20:19)
[2023-11-23] MEDS: PHENAZOPYRIDINE HCL 100 MG TAB PO PRN (08:02)
[2023-11-23] MEDS: LIDOCAINE 5% 1 PATCH TD SCH (08:03)
[2023-11-23] MEDS: APIXABAN 5 MG TABLET PO SCH ×2 (08:03→20:21)
[2023-11-23] MEDS: DONEPEZIL HCL 10 MG TAB PO SCH (08:03)
[2023-11-23] MEDS: DICLOFENAC SOD 1% GEL 100 GM TUBE EXT SCH ×4 (08:04→20:23)
[2023-11-23] MEDS: PANTOprazole 40 MG TAB PO SCH ×2 (10:46→20:22)
[2023-11-23] MEDS ORDERED: COUGH DROP (SUGAR FREE) LOZ 24 LOZ/1 BOX BUCCAL STA (16:28)
--- NOTE | 2023-11-23 17:47 | XRay Report ---
XR chest 1V portable CLINICAL HISTORY: chest pain, wheezing TECHNIQUE: Single frontal radiograph of the chest was obtained. Comparison: Comparison is made to chest radiograph 08/24/2023 FINDINGS: No lines and tubes are seen. Cardiomegaly is noted. The lungs are clear. No evidence of pleural effus ion or pneumothorax. IMPRESSION: No acute chest disease. ACT 112: Negative or not required by law. Electronically signed by: Joesph Hoyt M.D. 11/23/2023 5:46 PM
--- NOTE | 2023-11-23 19:18 | XRay Report ---
XR hip LT 2V w pelvis CLINICAL HISTORY: persistent L hip pain TECHNIQUE: 2 views of the left hip and single frontal view of the pelvis were obtained. Comparison: None available at the time of this dictation. FINDINGS: There is no evidence of an acute fracture. Degenerative changes are seen in the hip joint. No soft ti ssue abnormality is seen. IMPRESSION: Degenerative changes without evidence of acute abnormality. ACT 112: Negative or not required by law. Electronically signed by: Joesph Hyot M.D. 11/23/2023 7:15 PM
--- NOTE | 2023-11-23 19:29 | Hospitalist Progress Note ---
Date of Service November 23, 2023 Assessment & Plan (1) Generalized weakness: (2) Nausea, vomiting, and diarrhea: (3) UTI (urinary tract infection): (4) Acute hypokalemia: (5) Dementia: (6) SIMA (generalized anxiety disorder): (7) Hip pain: (8) COPD with exacerbation: (9) Atrial fibrillation: (10) Chronic respiratory failure: Plan Pt is a 63yoF with PMHx significant for COPD on chronic 4L of oxygen, paroxysmal atrial fibrillation on Eliquis, chronic diastolic CHF, RUFINA, obesity hypoventilation, history of multiple strokes admitted with concerning N/V/D and associated weakness. Nausea, vomiting, and diarrhea Generalized weakness Presented with 1 week of N/V/D and abdominal pain, unable to tolerate food WBC was elevated on admission, >12K, has since decreased and normalized CT abd/pelvis with no acute concerns COVID, flu and RSV negative Stool PCR negative C. difficile negative Loperamide and Zofran prn Diet was advanced as tolerated PT/OT for weakness- recommending rehab, patient originally accepted at [facility]; per need updated PT/OT eval Complicated UTI UA from 11/14, 2 days before admission suggestive of infection Urine Cx from 11/14 grew pansensitive E coli WBC elevated as noted above Possible cause of presenting symptoms noted above Treated with 5 days of IV Rocephin Chest pain On 11/23- pt with 6/10 chest pain EKG with NSR, trop x 1 wnl Chest xray with no acute process Pt tearful and anxious, due for Ativan dose Anxiety and depression Acute Psychiatry re-consulted, appreciate recs -recommending scheduled Ativan 0.5mg QID (prn with no benefit for her), increasing donepezil to 10mg -d/c zoloft Of note pt also receiving ordered PRN narcotics (tramadol) right on schedule (see below), monitor in setting of scheduled benzo recommended. Chronic Pain Pt with complaints of left hip pain that she states is "bone on bone" Currently receiving ordered PRN tramadol and Tylenol right on schedule Topical diclofenac and lidocaine patches added Pain persistent, XR hip ordered- showed degenerative changes Cautious use of narcotics in setting of scheduled Ativan recommended by Psychiatry noted above Hypomagnesemia Noted on admission, mag 1.5 Likely secondary to diarrhea illness. Patient is also on PPI therapy. Repleted as needed Hypokalemia K 2.5 on admission secondary to significant vomiting over the past week with poor p.o. intake. Was repleted with IV and oral supplements. Potassium stable and within normal limits Chronic respiratory failure COPD (chronic obstructive pulmonary disease) COPD exacerbation Wheezing present DuoNebs and budesonide nebs scheduled PRN inhalers Continue home singulair Oxygen supplementation as needed Continue to monitor respiratory status in setting of tramadol and scheduled Ativan use PAF (paroxysmal atrial fibrillation) Chronic, stable. Continue metoprolol and apixaban per home regimen Morbid obesity Continue treatment for depression and efforts for weight loss. Outpatient counseling recommended. Dementia Dose of donepezil increased to 10 mg once a day per psych recs. Granddaughter is customer professional. Diet: Regular DVT prophylaxis: apixaban CODE STATUS: Full code Dispo:awaiting placement Admission and Anticipated Discharge Date Admission Date: November 16, 2023 Subjective Pt was seen multiple times. Initially in the AM still noting pain in left hip. Still tearful. Later notified by nursing that pt was having 6/10 chest pain with radiation to right shoulder. Was due to receive Ativan. At bedside, pt tearful, chest wall tender to palpation, RRR though sounds faint with pt's tearful state. Review of Systems Review of Systems: All systems reviewed & are unremarkable except as noted in Subjective Physical Exam Physical Exam: General: Alert, oriented. tearful Skin: No noted rashes or bruises Psych: tearful mood and affect Neuro: Difficulty moving in bed HEENT: NC/AT Chest wall: tender to palpation CV: RRR Resp: Wheezy on exam, no increased effort of breathing. Abdomen: Soft, tender in lower quadrants Extremities: No edema in lower extremities bilaterally. Results & Data Results & Data Vital Signs (Past 12 Hours) Vital Signs Temp Pulse Pulse Resp BP Pulse Ox O2 Del Method 11/23/23 16:40 36.3 C L 82 16 107/69 95 Nasal Cannula 11/23/23 16:35 36.5 C 80 22 122/84 95 Nasal Cannula 11/23/23 14:40 84 18 94 Nasal Cannula 11/23/23 14:06 80 11/23/23 12:40 Nasal Cannula 11/23/23 11:30 36.4 C L 82 18 111/67 98 Nasal Cannula 11/23/23 10:17 88 16 94 Nasal Cannula 11/23/23 07:52 36.5 C 80 19 144/74 H 96 Nasal Cannula 11/23/23 07:34 88 17 93 Nasal Cannula O2 Flow Rate 11/23/23 16:40 5 11/23/23 16:35 5 11/23/23 14:40 5 11/23/23 14:06 11/23/23 12:40 5 11/23/23 11:30 5 11/23/23 10:17 5 11/23/23 07:52 5 11/23/23 07:34 5 (10) Chronic respiratory failure Respiratory failure complication: hypoxia Qualified Code(s): J96.11 - Chronic respiratory failure with hypoxia
[2023-11-23] MEDS: MIRTAZAPINE TAB 15 MG TAB PO SCH (20:20)
[2023-11-23] MEDS: MONTELUKAST SODIUM 10 MG TABLET PO SCH (20:21)
[2023-11-24] MEDS: ALBUT/IPRATROP 3MG/0.5MG NEB 3 ML VIAL NEB SCH ×6 (03:31→23:56)
[2023-11-24] MEDS: traMADol HCL 50 MG TABLET PO PRN ×3 (05:47→19:34)
[2023-11-24] MEDS: BUDESONIDE 0.5 MG/2 ML VIAL (PULMICORT) NEB SCH ×2 (07:27→20:39)
[2023-11-24 07:29] LABS: Hematocrit (blood only) 32.2 % (37.0-47.0); Hemoglobin 10.1 g/dl (12.0-16.0); Mean Corpuscular Hemoglobin 30.7 pg (25.0-34.0); Mean Corpuscular Hgb Conc 31.4 g/dL (32.0-36.0); Mean Corpuscular Volume 97.9 fL (80.0-100.0); Mean Platelet Volume 8.6 fL (9.4-12.4); Platelet Count 371 K/uL (130-400); RDW Coefficient of Variation 27.8 % (11.5-14.5); Red Blood Count 3.29 M/uL (4.20-5.40); White Blood Count 7.93 K/ul (4.8-10.8)
[2023-11-24 07:54] LABS: Creatinine Clr Calc Pharmacy 97.9 ml/min; Est GFR (African American) 90.9 ml/min; Est GFR (Non-African American) 78.5 ml/min; Magnesium 1.9 mg/dl (1.7-2.4); Phosphorus 4.2 mg/dl (2.5-4.9); Potassium 4.4 mmol/L (3.5-5.1)
[2023-11-24] MEDS: ACETAMINOPHEN 325 MG TAB PO PRN (08:24)
[2023-11-24] MEDS: DONEPEZIL HCL 10 MG TAB PO SCH (08:25)
[2023-11-24] MEDS: PHENAZOPYRIDINE HCL 100 MG TAB PO PRN (08:25)
[2023-11-24] MEDS: APIXABAN 5 MG TABLET PO SCH ×2 (08:25→20:27)
[2023-11-24] MEDS: LORazepam 0.5 MG TAB PO SCH ×4 (08:25→20:24)
[2023-11-24] MEDS: PANTOprazole 40 MG TAB PO SCH ×2 (08:25→20:25)
[2023-11-24] MEDS: METOPROLOL SUCC 25MG EXT REL TAB PO SCH (08:26)
[2023-11-24] MEDS: DICLOFENAC SOD 1% GEL 100 GM TUBE EXT SCH ×4 (08:26→20:27)
--- NOTE | 2023-11-24 09:11 | Electrocardiogram Report ---
Test Reason : Blood Pressure : / mmHG Vent. Rate : 079 BPM Atrial Rate : 079 BPM P-R Int : 130 ms QRS Dur : 084 ms QT Int : 368 ms P-R-T Axes : 022 004 044 degrees QTc Int : 421 ms Poor data quality, interpretation may be adversely affected Normal sinus rhythm Low voltage QRS Borderline ECG When compared with ECG of 16-NOV-2023 15:37, QT has shortened Confirmed by Roger Patterson ([id number]) on 11/24/2023 9:11:36 AM Referred By: Roger Alexandra Confirmed By:Roger Patterson
--- NOTE | 2023-11-24 10:16 | Hospitalist Progress Note ---
Date of Service November 24, 2023 Assessment & Plan (1) Generalized weakness: (2) Nausea, vomiting, and diarrhea: (3) UTI (urinary tract infection): (4) Acute hypokalemia: (5) Dementia: (6) SIMA (generalized anxiety disorder): (7) Hip pain: (8) COPD with exacerbation: (9) Atrial fibrillation: (10) Chronic respiratory failure: Plan Pt is a 63yoF with PMHx significant for COPD on chronic 4L of oxygen, paroxysmal atrial fibrillation on Eliquis, chronic diastolic CHF, RUFINA, obesity hypoventilation, history of multiple strokes admitted with concerning N/V/D and associated weakness. Nausea, vomiting, and diarrhea Generalized weakness Presented with 1 week of N/V/D and abdominal pain, unable to tolerate food WBC was elevated on admission, >12K, has since decreased and normalized CT abd/pelvis with no acute concerns COVID, flu and RSV negative Stool PCR negative C. difficile negative Loperamide and Zofran prn Diet was advanced as tolerated PT/OT for weakness- recommending rehab, patient originally accepted at [facility]; per need updated PT/OT eval Complicated UTI UA from 11/14, 2 days before admission suggestive of infection Urine Cx from 11/14 grew pansensitive E coli WBC elevated as noted above Possible cause of presenting symptoms noted above Treated with 5 days of IV Rocephin Chest pain On 11/23- pt with 6/10 chest pain EKG with NSR, trop x 1 wnl Chest xray with no acute process Currently resolved Anxiety and depression Acute Psychiatry re-consulted, appreciate recs -recommending scheduled Ativan 0.5mg QID (prn with no benefit for her), incre asing donepezil to 10mg -d/c zoloft Of note pt also receiving ordered PRN narcotics (tramadol) right on schedule (see below), monitor in setting of scheduled benzo recommended. Chronic Pain Pt with complaints of left hip pain that she states is "bone on bone" Currently receiving ordered PRN tramadol and Tylenol right on schedule Topical diclofenac and lidocaine patches added Pain persistent, XR hip ordered- showed degenerative changes Cautious use of narcotics in setting of scheduled Ativan recommended by Psychiatry noted above Hypomagnesemia Noted on admission, mag 1.5 Likely secondary to diarrhea illness. Patient is also on PPI therapy. Repleted as needed Hypokalemia K 2.5 on admission secondary to significant vomiting over the past week with poor p.o. intake. Was repleted with IV and oral supplements. Potassium stable and within normal limits Chronic respiratory failure COPD (chronic obstructive pulmonary disease) COPD exacerbation Wheezing present DuoNebs and budesonide nebs scheduled PRN inhalers Continue home singulair Oxygen supplementation as needed Continue to monitor respiratory status in setting of tramadol and scheduled Ativan use PAF (paroxysmal atrial fibrillation) Chronic, stable. Continue metoprolol and apixaban per home regimen Morbid obesity Continue treatment for depression and efforts for weight loss. Outpatient counseling recommended. Dementia Dose of donepezil increased to 10 mg once a day per psych recs. Granddaughter is mobile qa tester. Diet: Regular DVT prophylaxis: apixaban CODE STATUS: Full code Dispo:awaiting placement Admission and Anticipated Discharge Date Admission Date: November 16, 2023 Subjective Pt seen in the AM. States that she did not have a good night, still with a lot of pain diffusely. States she worked with PT the day before and helping. Review of Systems Review of Systems: All systems reviewed & are unremarkable except as noted in Subjective Physical Exam Physical Exam: General: Alert, oriented. Psych: tearful mood and affect Neuro: Difficulty moving in bed HEENT: NC/AT Chest wall: tender to palpation CV: RRR Resp: Wheezy on exam, no increased effort of breathing. Abdomen: Soft, tender Extremities: No edema in lower extremities bilaterally. Results & Data Results & Data Vital Signs (Past 12 Hours) Vital Signs Temp Pulse Pulse Pulse Resp BP BP 11/24/23 07:40 36.5 C 84 18 97/64 L 11/24/23 07:28 81 18 11/24/23 07:00 76 11/24/23 01:55 36.7 C 85 18 105/68 11/23/23 23:00 101/61 11/23/23 22:51 36.5 C 83 18 93/47 L Pulse Ox O2 Del Method O2 Flow Rate 11/24/23 07:40 97 Nasal Cannula 5 11/24/23 07:28 97 Nasal Cannula 5 11/24/23 07:00 11/24/23 01:55 95 Nasal Cannula 5 11/23/23 23:00 11/23/23 22:51 95 Nasal Cannula 5 (10) Chronic respiratory failure Respiratory failure complication: hypoxia Qualified Code(s): J96.11 - Chronic respiratory failure with hypoxia
[2023-11-24] MEDS: LIDOCAINE 5% 1 PATCH TD SCH (10:34)
[2023-11-24] MEDS: MIRTAZAPINE TAB 15 MG TAB PO SCH (20:25)
[2023-11-24] MEDS: MONTELUKAST SODIUM 10 MG TABLET PO SCH (20:26)
[2023-11-25] MEDS: ALBUT/IPRATROP 3MG/0.5MG NEB 3 ML VIAL NEB SCH ×6 (03:04→23:44)
[2023-11-25] MEDS: traMADol HCL 50 MG TABLET PO PRN ×4 (03:25→23:26)
[2023-11-25 06:53] LABS: Hematocrit (blood only) 29.9 % (37.0-47.0); Hemoglobin 9.7 g/dl (12.0-16.0); Mean Corpuscular Hemoglobin 30.7 pg (25.0-34.0); Mean Corpuscular Hgb Conc 32.4 g/dL (32.0-36.0); Mean Corpuscular Volume 94.6 fL (80.0-100.0); Mean Platelet Volume 8.5 fL (9.4-12.4); Platelet Count 376 K/uL (130-400); RDW Coefficient of Variation 27.7 % (11.5-14.5); RDW Standard Deviation 93.5 fL (36.4-46.3); Red Blood Count 3.16 M/uL (4.20-5.40); White Blood Count 9.34 K/ul (4.8-10.8)
[2023-11-25 07:19] LABS: BUN Creatinine Ratio 29.7 (10-20); Calcium 8.2 mg/dl (8.6-10.3); Creatinine Clr Calc Pharmacy 86.2 ml/min; Est GFR (African American) 77.8 ml/min; Est GFR (Non-African American) 67.1 ml/min; Potassium 4.4 mmol/L (3.5-5.1)
[2023-11-25] MEDS: BUDESONIDE 0.5 MG/2 ML VIAL (PULMICORT) NEB SCH ×2 (07:58→18:20)
[2023-11-25] MEDS: PHENAZOPYRIDINE HCL 100 MG TAB PO PRN (08:34)
[2023-11-25] MEDS: ACETAMINOPHEN 325 MG TAB PO PRN ×3 (08:34→21:01)
[2023-11-25] MEDS: APIXABAN 5 MG TABLET PO SCH ×2 (08:35→21:00)
[2023-11-25] MEDS: PANTOprazole 40 MG TAB PO SCH ×2 (08:35→21:03)
[2023-11-25] MEDS: DONEPEZIL HCL 10 MG TAB PO SCH (08:35)
[2023-11-25] MEDS: METOPROLOL SUCC 25MG EXT REL TAB PO SCH (08:35)
[2023-11-25] MEDS: LORazepam 0.5 MG TAB PO SCH ×4 (08:35→21:00)
[2023-11-25] MEDS: LIDOCAINE 5% 1 PATCH TD SCH (08:36)
[2023-11-25] MEDS: DICLOFENAC SOD 1% GEL 100 GM TUBE EXT SCH ×4 (10:17→21:02)
--- NOTE | 2023-11-25 10:58 | Hospitalist Progress Note ---
Date of Service November 25, 2023 Assessment & Plan (1) Generalized weakness: (2) Nausea, vomiting, and diarrhea: (3) UTI (urinary tract infection): (4) Acute hypokalemia: (5) Dementia: (6) SIMA (generalized anxiety disorder): (7) Hip pain: (8) COPD with exacerbation: (9) Atrial fibrillation: (10) Chronic respiratory failure: Plan Pt is a 63yoF with PMHx significant for COPD on chronic 4L of oxygen, paroxysmal atrial fibrillation on Eliquis, chronic diastolic CHF, RUFINA, obesity hypoventilation, history of multiple strokes admitted with concerning N/V/D and associated weakness. Nausea, vomiting, and diarrhea Generalized weakness Presented with 1 week of N/V/D and abdominal pain, unable to tolerate food WBC was elevated on admission, >12K, has since decreased and normalized CT abd/pelvis with no acute concerns COVID, flu and RSV negative Stool PCR negative C. difficile negative Loperamide and Zofran prn Diet was advanced as tolerated PT/OT for weakness- recommending rehab, patient originally accepted at [facility]; per need updated PT/OT eval Complicated UTI UA from 11/14, 2 days before admission suggestive of infection Urine Cx from 11/14 grew pansensitive E coli WBC elevated as noted above Possible cause of presenting symptoms noted above Treated with 5 days of IV Rocephin 11/25- repeat UA ordered for dysuria once more Chest pain On 11/23- pt with 6/10 chest pain EKG with NSR, trop x 1 wnl Chest xray with no acute process Currently resolved Anxiety and depression Acute Psychiatry re-consulted, appreciate recs -recommending scheduled Ativan 0.5mg QID (prn with no benefit for her), increasing donepezil to 10mg -d/c zoloft Of note pt also receiving ordered PRN narcotics (tramadol) right on schedule (see below), monitor in setting of scheduled benzo recommended. Chronic Pain Pt with complaints of left hip pain that she states is "bone on bone" Currently receiving ordered PRN tramadol and Tylenol right on schedule Topical diclofenac and lidocaine patches added Pain persistent, XR hip ordered- showed degenerative changes Cautious use of narcotics in setting of scheduled Ativan recommended by Psychiatry noted above Hypomagnesemia Noted on admission, mag 1.5 Likely secondary to diarrhea illness. Patient is also on PPI therapy. Repleted as needed Hypokalemia K 2.5 on admission secondary to significant vomiting over the past week with poor p.o. intake. Was repleted with IV and oral supplements. Potassium stable and within normal limits Chronic respiratory failure COPD (chronic obstructive pulmonary disease) COPD exacerbation Wheezing present DuoNebs and budesonide nebs scheduled PRN inhalers Continue home singulair Oxygen supplementation as needed Continue to monitor respiratory status in setting of tramadol and scheduled Ativan use PAF (paroxysmal atrial fibrillation) Chronic, stable. Continue metoprolol and apixaban per home regimen Morbid obesity Continue treatment for depression and efforts for weight loss. Outpatient counseling recommended. Dementia Dose of donepezil increased to 10 mg once a day per psych recs. Granddaughter is front desk supervisor. Diet: Regular DVT prophylaxis: apixaban CODE STATUS: Full code Dispo:awaiting placement Admission and Anticipated Discharge Date Admission Date: November 16, 2023 Subjective States that she had a bad night. Stated she felt anxious, had not yet received her morning meds. Later notified by nursing that pt was having dysuria, was being given pyridium. Review of Systems Review of Systems: All systems reviewed & are unremarkable except as noted in Subjective Physical Exam Physical Exam: General: Alert, oriented. Psych: anxious mood and affect Neuro: Difficulty moving in bed HEENT: NC/AT Chest wall: tender to palpation CV: RRR Resp: Wheezy on exam, no increased effort of breathing. Abdomen: Soft, tender Extremities: No edema in lower extremities bilaterally. Results & Data Results & Data Vital Signs (Past 12 Hours) Vital Signs Temp Pulse Pulse Resp BP Pulse Ox O2 Del Method 11/25/23 10:55 90 20 96 Nasal Cannula 11/25/23 08:00 Nasal Cannula 11/25/23 07:59 95 H 90 H Nasal Cannula 11/25/23 07:57 36.7 C 86 20 104/64 96 Nasal Cannula 11/25/23 07:39 100 H 11/25/23 04:00 36.5 C 98 H 18 102/65 96 Nasal Cannula 11/25/23 03:04 101 H 18 98 Nasal Cannula 11/24/23 23:57 36.9 C 101 H 18 102/54 L 96 Nasal Cannula 11/24/23 23:57 99 H 18 97 Nasal Cannula O2 Flow Rate 11/25/23 10:55 5 11/25/23 08:00 11/25/23 07:59 5 11/25/23 07:57 5 11/25/23 07:39 11/25/23 04:00 5 11/25/23 03:04 11/24/23 23:57 5 11/24/23 23:57 5 (10) Chronic respiratory failure Respiratory failure complication: hypoxia Qualified Code(s): J96.11 - Chronic respiratory failure with hypoxia
[2023-11-25] MEDS ORDERED: COUGH DROP (SUGAR FREE) LOZ 24 LOZ/1 BOX BUCCAL ONE (16:35)
[2023-11-25] MEDS ORDERED: COUGH DROP (SUGAR FREE) LOZ 24 LOZ/1 BOX BUCCAL PRN (16:39)
[2023-11-25 17:50] LABS: Appearance Urine Clear (Clear); Bilirubin Urine Negative (Negative); Blood Urine Negative (Negative); Color Urine Dark Yellow; Glucose Urine UA Negative (Negative); Ketones Urine Negative (Negative); Leukocyte Esterase Urine Negative (Negative); Nitrite Urine Positive (Negative); Protein Urine Negative (Negative); Specific Gravity Urine 1.003 (1.000-1.030); Urobilinogen Urine Negative (Negative); pH Urine 6.5 (4.5-7.5)
[2023-11-25 18:30] LABS: Bacteria Urine Automated Negative (Negative); Cast Urine Automated 0 /lpf (0-5); RBC Urine Automated 0-4 /hpf (0-4)
[2023-11-25] MEDS: CEFDINIR 300 MG CAP PO SCH ×2 (20:59→21:04)
[2023-11-25] MEDS ORDERED: CEFDINIR 300 MG CAP PO SCH (21:00)
[2023-11-25] MEDS: MONTELUKAST SODIUM 10 MG TABLET PO SCH (21:02)
[2023-11-25] MEDS: MIRTAZAPINE TAB 15 MG TAB PO SCH (21:02)
[2023-11-26] MEDS: ALBUT/IPRATROP 3MG/0.5MG NEB 3 ML VIAL NEB SCH ×3 (02:13→11:32)
[2023-11-26] MEDS: traMADol HCL 50 MG TABLET PO PRN ×2 (06:29→13:00)
[2023-11-26 06:46] LABS: Hematocrit (blood only) 30.5 % (37.0-47.0); Hemoglobin 9.6 g/dl (12.0-16.0); Mean Corpuscular Hgb Conc 31.5 g/dL (32.0-36.0); Mean Corpuscular Volume 98.4 fL (80.0-100.0); Mean Platelet Volume 8.9 fL (9.4-12.4); Platelet Count 351 K/uL (130-400); RDW Coefficient of Variation 27.7 % (11.5-14.5); RDW Standard Deviation 96.4 fL (36.4-46.3); White Blood Count 7.57 K/ul (4.8-10.8)
[2023-11-26] MEDS: BUDESONIDE 0.5 MG/2 ML VIAL (PULMICORT) NEB SCH (07:03)
[2023-11-26 07:17] LABS: Calcium 8.2 mg/dl (8.6-10.3); Magnesium 2.1 mg/dl (1.7-2.4); Potassium 4.6 mmol/L (3.5-5.1)
[2023-11-26 07:22] LABS: BUN Creatinine Ratio 23.7 (10-20); Creatinine Clr Calc Pharmacy 84.7 ml/min; Est GFR (African American) 75.8 ml/min; Est GFR (Non-African American) 65.4 ml/min
[2023-11-26] MEDS: APIXABAN 5 MG TABLET PO SCH (09:55)
[2023-11-26] MEDS: PANTOprazole 40 MG TAB PO SCH (09:55)
[2023-11-26] MEDS: CEFDINIR 300 MG CAP PO SCH (09:55)
[2023-11-26] MEDS: DONEPEZIL HCL 10 MG TAB PO SCH (09:56)
[2023-11-26] MEDS: METOPROLOL SUCC 25MG EXT REL TAB PO SCH (09:56)
[2023-11-26] MEDS: PHENAZOPYRIDINE HCL 100 MG TAB PO PRN (09:56)
[2023-11-26] MEDS: DICLOFENAC SOD 1% GEL 100 GM TUBE EXT SCH (09:57)
--- NOTE | 2023-11-26 10:23 | Discharge Summary ---
Discharge Summary Date of Service November 26, 2023 Notes For Next Care Provider Please ensure close follow up with Psychiatry Medication Changes From Visit Cefdinir 300mg BID for 6 more days Lorazepam 0.5mg QID scheduled per Psychiatry Switched home Tylenol #3 to tramadol 50mg q6h prn Increased donepezil dose to 10mg daily Admission HPI Per Admitting Provider 63-year-old female presents with intractable vomiting for 1 week and diarrhea. She also has abdominal pain. She was seen by home health nurse who checked her urine which was positive for E. coli. She was sent in today and found to have hypokalemia and hypomagnesemia.Recently admitted in August 2023 for acute GI bleeding on anticoagulation with hypovolemic shock. She had a supratherapeutic INR on Coumadin and at discharge she was put on Eliquis. She has been doing well on this overall and denies any bleeding. She lives alone and home health RNs are in to see her regularly. One week ago she developed vomiting and diarrhea and presented today because a home health RN told her to come based on how she was looking. She also was diagnosed with an E coli UTI with plans to start on Bactrim. She was given Rocephin in the ER today. She is severely depressed. She states that her granddaughter handles her medications, and therefore, she doesn't know all of them. I was unable to get into the outpatient EMR link to confirm, so the med rec is based on what the patient and med tech put together and may need to be checked with family tomorrow. In the ER, she underwent a CT a/p which was unremarkable. She was improved with fentanyl for pain, antiemetics and IVF. Electrolyte replacement for low K and low Mg were started. Admission Exam Per Admitting Provider CONSTITUTIONAL: obese, vitals as above, appears chronically ill, mild distress 2/2 abdominal pain EYES: normal conjunctivae, no scleral icterus ENT: external ear and nose normal, MMM NECK: trachea midline RESPIRATORY: clear to auscultation bilaterally, no crackles, rales or wheezes, normal respiratory effort CARDIOVASCULAR: regular rate and rhythm, S1 and 2 heard without murmurs, gallops or rubs, no JVD, no peripheral edema CHEST: inspection of chest was normal GASTROINTESTINAL: soft, epigastric fullness and TTP, ND, no guarding MUSCULOSKELETAL: generalized weakness with no gross focal deficits, head is normocephalic and atraumatic SKIN: warm and dry NEUROLOGIC: CN 2-12 grossly intact, no sensory deficit, normal cognition, normal speech, no tremor PSYCHIATRIC: alert cooperative and oriented to person, place and time. Euthymic mood, makes good eye contact, language grossly intact, recent and remote memory grossly intact. Principal Dx & Hospital Course #1 = Principal Diagnosis (1) Generalized weakness: (2) Nausea, vomiting, and diarrhea: (3) UTI (urinary tract infection): (4) Acute hypokalemia: (5) Dementia: (6) SIMA (generalized anxiety disorder): (7) Hip pain: (8) COPD with exacerbation: (9) Atrial fibrillation: (10) Chronic respiratory failure: Plan Pt is a 63yoF with PMHx significant for COPD on chronic 4L of oxygen, paroxysmal atrial fibrillation on Eliquis, chronic diastolic CHF, RUFINA, obesity hypoventilation, history of multiple strokes admitted with concerning N/V/D and associated weakness. Nausea, vomiting, and diarrhea Generalized weakness Presented with 1 week of N/V/D and abdominal pain, unable to tolerate food WBC was elevated on admission, >12K, has since decreased and normalized CT abd/pelvis with no acute concerns COVID, flu and RSV negative Stool PCR negative C. difficile negative Loperamide and Zofran prn Diet was advanced as tolerated PT/OT for weakness- recommending rehab, patient discharged to [facility] Complicated UTI UA from 11/14, 2 days before admission suggestive of infection Urine Cx from 11/14 grew pansensitive E coli WBC elevated as noted above Possible cause of presenting symptoms noted above Treated with 5 days of IV Rocephin 11/25- repeat UA ordered for dysuria once more, nitrites positive Discharged on cefdinir 300mg BID for 6 more days Chest pain On 11/23- pt with 04/24 chest pain EKG with NSR, trop x 1 wnl Chest xray with no acute process Currently resolved Anxiety and depression Acute Psychiatry re-consulted, appreciate recs -recommending scheduled Ativan 0.5mg QID (no benefit for her when taken prn), increasing donepezil to 10mg -d/c zoloft Of note pt also receiving ordered PRN narcotics (tramadol) taking it right on schedule (see below), monitor in setting of scheduled benzo recommended. Chronic Pain Pt with complaints of left hip pain that she states is "bone on bone" Currently receiving ordered Tylenol and PRN tramadol right on schedule Home Tyenol #3 switched to tramadol. Topical diclofenac and lidocaine patches added Pain persistent, XR hip ordered- showed degenerative changes Cautious use of narcotics in setting of scheduled Ativan recommended by Psychiatry noted above Hypomagnesemia Noted on admission, mag 1.5 Likely secondary to diarrhea illness. Patient is also on PPI therapy. Repleted as needed Magnesium 2.1 on discharge Hypokalemia K 2.5 on admission secondary to significant vomiting over the past week with p oor p.o. intake. Was repleted with IV and oral supplements. Potassium stable and within normal limits Potassium 4.6 on discharge Chronic respiratory failure COPD (chronic obstructive pulmonary disease) COPD exacerbation Wheezing present Received scheduled DuoNebs and budesonide nebs PRN and scheduled inhalers Continue home singulair Oxygen supplementation as needed Continue to monitor respiratory status in setting of tramadol and scheduled Ativan use PAF (paroxysmal atrial fibrillation) Chronic, stable. Continue metoprolol and apixaban per home regimen Morbid obesity Continue treatment for depression and efforts for weight loss. Outpatient counseling recommended. Dementia Dose of donepezil increased to 10 mg once a day per psych recs. Granddaughter is laborer cook house. Discharge Exam General: Alert, oriented. Psych: anxious mood and affect Neuro: Difficulty moving in bed HEENT: NC/AT Chest wall: tender to palpation CV: RRR Resp: Wheezy on exam, no increased effort of breathing. Abdomen: Soft, tender Extremities: No edema in lower extremities bilaterally. Updated Medication List Medication Instructions Recorded Confirmed Type albuterol sulfate 5 mg/mL(0.5 %) 2.5 mg inhalation DIRECTED PRN 08/20/22 11/16/23 History solution for nebulization Shortness Of Breath Or Wheezing albuterol sulfate 90 mcg/actuation 2 puff inhalation QID PRN sob 08/20/22 11/16/23 History aerosol inhaler omeprazole 20 mg capsule,delayed 20 mg PO [facility] 07/15/23 11/16/23 History release potassium chloride 10 mEq 10 meq PO [facility] 07/15/23 11/16/23 History capsule,extended release solifenacin 10 mg tablet 10 mg PO QAM 07/15/23 11/16/23 History montelukast 10 mg tablet 10 mg PO HS #30 tabs 07/23/23 11/16/23 Rx apixaban 5 mg tablet (Eliquis) 5 mg PO BID 11/16/23 11/16/23 History baclofen 10 mg tablet 10 mg PO TID PRN .muscle spasm 11/16/23 11/16/23 History cholecalciferol (vitamin D3) 1,250 50,000 unit PO WE 11/16/23 11/16/23 History mcg (50,000 unit) capsule furosemide 40 mg tablet 40 mg PO BID 11/16/23 11/16/23 History ipratropium 0.5 mg-albuterol 3 mg 3 ml inhalation QID PRN Shortness 11/16/23 11/16/23 History (2.5 mg base)/3 mL nebulization Of Breath Or Wheezing soln iron,carbonyl 65 mg-vitamin C 125 2 tab PO QAM 11/16/23 11/16/23 History mg tablet,delayed release (Vitron-C) isosorbide mononitrate 30 mg 30 mg PO DAILY 11/16/23 11/16/23 History tablet,extended release 24 hr metoprolol succinate 25 mg 25 mg PO QAM 11/16/23 11/16/23 History tablet,extended release 24 hr mirtazapine 30 mg tablet 30 mg PO HS 11/16/23 11/16/23 History nystatin 100,000 unit/gram topical 1 applic topical BID 11/16/23 11/16/23 History powder (Nyamy) ramelteon 8 mg tablet 8 mg PO HS 11/16/23 11/16/23 History sertraline 50 mg tablet 50 mg PO HS 11/16/23 11/16/23 History cefdinir 300 mg capsule 300 mg PO BID #12 caps 11/26/23 Rx donepezil 10 mg tablet 10 mg PO QAM #30 tabs 11/26/23 Rx lorazepam 0.5 mg tablet 0.5 mg PO QID #28 tabs 11/26/23 Rx tramadol 50 mg tablet 50 mg PO Q6H PRN pain #20 tabs 11/26/23 Rx Hospital Stay Data Consultations 11/16/23 17:34 ED Decision to Admit Stat 11/20/23 09:58 Consult Psychiatry Routine Diagnostic Imagining Performed 11/16/23 13:10 CT abd pelvis IV con only Stat Abdomen/Pelvis CT 11/16/23 13:[address] WITH IV CONTRAST CT DOSE: 1408.89 mGy.cm HISTORY: Acute generalized abdominal pain Abdominal pain TECHNIQUE: Multiaxial CT images of the abdomen and pelvis were performed following the IV administration of 116 cc of Optiray, A dose lowering technique was utilized adhering to the principles of ALARA. COMPARISON STUDY: 08/16/2023 FINDINGS: Mild bibasilar mucous plugging. No free air. Unremarkable spleen,, pancreas and liver with probable hepatic steatosis. Cholecystectomy. Patent portal vein. Thickening of the left greater than right adrenal glands bilateral adrenal gland nodule redemonstrated measuring up to 1.9 cm on the left and 1.7 cm on the right compatible with adenomata. Mild cortical thinning of the kidneys with areas of parenchymal scarring. No hydronephrosis. Decompressed urinary bladder with mild wall thickening. Hysterectomy. Atherosclerosis of the aorta without aneurysm. There is no lymphadenopathy. No bowel obstruction or bowel wall thickening. No ascites or mesenteric inflammation. Metallic density focus noted within the hepatic flexure on image 154 series 3, unchanged from prior suggestive of endoscopy clip. Normal appendix. Unremarkable soft tissues. No acute fracture. IMPRESSION: 1. No acute intra-abdominal or intrapelvic abnormality. 2. No bowel obstruction or bowel wall thickening. 3. Additional findings as above. ACT 112: Negative or not required by law. The above report was generated using voice recognition software. It may contain grammatical, syntax or spelling errors. Electronically signed by: Alvarez Peters M.D. 11/16/2023 4:37 PM Chest X-Ray 11/23/23 16:44 XR chest 1V portable CLINICAL HISTORY: chest pain, wheezing TECHNIQUE: Single frontal radiograph of the chest was obtained. Comparison: Comparison is made to chest radiograph 08/24/2023 FINDINGS: No lines and tubes are seen. Cardiomegaly is noted. The lungs are clear. No evidence of pleural effusion or pneumothorax. IMPRESSION: No acute chest disease. ACT 112: Negative or not required by law. Electronically signed by: Joesph Hoyt M.D. 11/23/2023 5:46 PM Hip/Pelvis X-Ray 11/23/23 16:54 XR hip LT 2V w pelvis CLINICAL HISTORY: persistent L hip pain TECHNIQUE: 2 views of the left hip and single frontal view of the pelvis were obtained. Comparison: None available at the time of this dictation. FINDINGS: There is no evidence of an acute fracture. Degenerative changes are seen in the hip joint. No soft tissue abnormality is seen. IMPRESSION: Degenerative changes without evidence of acute abnormality. ACT 112: Negative or not required by law. Electronically signed by: Joesph Hoyt M.D. 11/23/2023 7:15 PM Pending Results Patient Have Any Pending Studies at Discharge: No Discharge Instructions Given to Patient (Per Discharging Provider) Ms. Kendall, We are discharging you to acute rehab at [facility]. You were treated for intractable nausea, vomiting and diarrhea as well as a complicated UTI. We treated you with a course of IV antibiotics while you were here but while awaiting placement you developed symptoms once more. Therefore we are treating you once more and discharging you with another 6 days of antibiotics. You were also seen by psychiatry and they made changes to your medication. They increased the dose of your donepezil to 10mg and started you on scheduled lorazepam 0.5mg four times a day. Please be careful taking it with the home tramadol that you were switched to, as needed for your pain. Please keep close follow up with your primary care provider and psychiatrist after discharge. It was a pleasure taking care of you while you were here. Total Time Total Time Spent Total Time Spent (In Minutes): > 30 minutes
[2023-11-26] MEDS: LIDOCAINE 5% 1 PATCH TD SCH (10:28)
[2023-11-26] MEDS: LORazepam 0.5 MG TAB PO SCH (10:28)
== END 2023-11-26 13:41 | DRG 690 ==
LOC: ED 12:53 → EDINP 18:05 → SUATTDRO 18:05 → EDINP 19:22 → 2N 11-17 01:46

== ENCOUNTER 2023-12-08 15:40 | Inpatient (IN) ==
--- NOTE | 2023-12-08 16:21 | Emergency Department Note ---
Impression & Plan COVID-19, COPD (chronic obstructive pulmonary disease), Congestive heart failure ED Provider Note NAME: YAZAN MCKEON AGE: 63 SEX: F ARRIVES VIA: Ambulance INFORMANT: Patient ED PROVIDER(S): Khang Arvizu MD CHIEF COMPLAINT: Shortness of breath, feverish. PLAN: Disposition: Admit MEDICAL DECISION MAKING: The patient is a pleasant 63-year-old woman with a past medical history of COPD, CHF, atrial fibrillation on Eliquis, morbid obesity who presents to the emergency department via EMS from her home for worsening cough, congestion shortness of breath with feverishness and body aches which she reports has been evolving since Wednesday after being [facility] on Wednesday following an admission to this facility for urinary tract infection prior to that. Patient reports having increased wheezing and chest tightness which is not getting better with her home nebulizer machine. She also admits that she has retained increased fluid or past 24 hours and had not taken her Lasix due to feeling unwell. On my evaluation the patient is uncomfortable in acute distress, temperature of 37.6 and vital signs otherwise stable. She appear hypervolemic with 2+ BLE pitting edema. Lungs with wheezes of bilateral lung mena with mild increased work of breath but in NAD. EKG without overt acute ischemia. Chest x-ray with possible left mid and lower lung interstitial opacities per my independent interpretation. WBC and platelets within normal limits. H/H 8.6/27.4, slightly decreased from prior values and nonspecific. VBG is 7.29 with pCO2 of 73 and chemistry with bicarbonate of 33 consistent with component of acute on chronic respiratory failure with hypercapnia. Lactic acid 1.0, within normal limits. LFTs unremarkable. High-sensitivity troponin is within normal limits. BNP is 354, increased from prior values and consistent with the patient hypervolemic appearance and 5 kg weight gain compared to discharge. Procalcitonin is undetectable. TSH within limits. UA without evidence of infection. Respiratory BioFire was positive for COVID-19. Given the patient's initial presentation with feverishness she was treated empirically with cefepime given recent hospitalization. Additionally treated for COPD flare with Solu-Medrol and hour-long DuoNeb. Lasix also administered for component of CHF/hypervolemia. Patient agrees with plan for admission for further management. Case was discussed with Sm[facility] Hannon with [facility] hospitalist, who will evaluate the patient for admission. Triage Nursing notes reviewed and agree them. Prior/external medical records reviewed Vital Signs: reviewed Differential diagnosis: Reactive airway disease, pneumonia, pneumothorax, COPD, CHF, infections, cardiac ischemia, pulmonary embolism, musculoskeletal, gastrointestinal, as well as other pathologies. ER treatment provided: See below. Diagnostics interpreted by me: ECG: Normal sinus rhythm, 82 bpm, no ectopy, no overt ST elevation or depression, QTc 443, QRS 80. Cardiac Monitoring: An order for continuous cardiac monitoring was placed and demonstrated Normal sinus rhythm, 82 bpm, no ectopy. Laboratory studies: See below Imaging studies: See below Consultation(s): Case was discussed with Smooth Hannon PAC with [facility] hospitalist, who will evaluate the patient for admission. HPI: The patient is a pleasant 63-year-old woman with a past medical history of COPD, CHF, atrial fibrillation on Eliquis, morbid obesity who presents to the emergency department via EMS from her home for worsening cough, congestion shortness of breath with feverishness and body aches which she reports has been evolving since Wednesday after being discharged from [facility] on Wednesday following an admission to this facility for urinary tract infection prior to that. Patient reports having increased wheezing and chest tightness which is not getting better with her home nebulizer machine. She also admits that she has retained increased fluid or past 24 hours and had not taken her Lasix due to feeling unwell. ROS: See above HPI for pertinent positives & negatives. A total of 10 systems reviewed and were otherwise negative. VITALS:See Below PHYSICAL EXAMINATION: GENERAL: Awake, alert, acute on chronically ill-appearing, in no distress HENT: Normocephalic, atraumatic. Oropharynx unremarkable. EYES: Normal conjunctiva. Sclera non-icteric. NECK: Supple. No nuchal rigidity. FROM. No JVD. RESPIRATORY: Wheezes of bilateral lung mena with mild increased work of breath but in NAD. CARDIAC: Regular rate, normal rhythm. Extremities warm and well perfused. Pulses equal. ABDOMEN: Soft, non-distended. No tenderness to palpation. No rebound or guarding. No masses. RECTAL: Deferred. MUSCULOSKELETAL: Chest examination reveals no tenderness. The back is symmetrical on inspection without obvious abnormality. There is no CVA tenderness to palpation. No joint edema. LOWER EXTREMITIES: Calves are equal size bilaterally and non-tender. 2+ BLE pitting edema. No discoloration. NEURO: Normal sensorium. No sensory or motor deficits noted. SKIN: No rash or jaundice noted. Khang Arvizu MD Past Med/Surg History Medical History Swelling of left hand Encounter for pre-operative examination Sleep apnea mild RUFINA (dx in ) no machine currently -- pt to have another sleep study february 2023. Osteoarthritis Degenerative disc disease Urinary incontinence Peripheral neuropathy Anemia Congestive heart failure follows with [facility] cardiology (Patricia banks) Hypertension Dementia "very early stages" Alert and oriented x3. granddaughter is the caregiver of patient. Post traumatic stress disorder On home oxygen therapy continuous 3lpm via n/c. (will increase to 4lpm via n/c if needed) History of COVID-19 Spring 2020. treated at [facility] inpatient. symptoms included: sob, cough, desaturation 84-87%, congestion, headache, fatigue. no ventilator at the time. no current problems. Diarrhea started about 1 year ago -- will come and go. Chronic respiratory failure with hypoxia COPD (chronic obstructive pulmonary disease) Submucosal lesion of stomach Noted on EGD 11/06/20 Anticoagulated on Coumadin Paroxysmal A-fib feels her heart race at times. Chronic pain on daily narcotics (tramadol PRN) Morbid obesity Anxiety and depression History of stroke "embolic stroke, underlying PFO" total of 9 strokes -> last stroke ~6+years ago. damaged urinary nerve and mild left sided weakness. Surgical History Hx of lumpectomy left breast (benign) History of cataract surgery bilateral History of cardiac cath [facility] [place] - "long time ago" -- pt unsure of details. H/O colonoscopy H/O esophagogastroduodenoscopy Status post hernia repair Right inguinal Status post hysterectomy MERT with BSO Status post cholecystectomy Family History Grandmother (Maternal) FHx: bladder cancer Father FHx: stroke Other Heart disease No family history of adverse response to anesthesia Social History Smoking Status: Former smoker Tobacco Type: Cigarettes Cigarettes Per Day: 2 ppd; Second Hand Exposure: No; Do You Dip or Chew Tobacco: No; Hx Alcohol Use: No Hx Substance Use: No Preferred Language: [place] Leonean Communication Ability: Effective Floor Framer Required: No Beliefs That Will Affect Care: None marital status: / Current Living Situation: Alone Current Living Situation Comment: Lives home teddy, granddaughter clarice assist patient Other Information That Helps Us Care for You: No Feels Safe at Home: Yes Safety Concerns: Feels Safe At This Time Assistive Devices: Denture - Upper and Walker Allergies Allergies Allergy/AdvReac Type Severity Reaction Status Date / Time aspirin Allergy Unknown TAKES Verified 12/08/23 17:47 COUMADIN salicylates AdvReac Unknown ?DUE TO Verified 12/08/23 17:47 COUMADIN? Home Meds Home Medications Medication Instructions Recorded Confirmed albuterol sulfate 5 mg/mL(0.5 %) 2.5 mg inhalation DIRECTED PRN 08/20/22 12/08/23 solution for nebulization Shortness Of Breath Or Wheezing albuterol sulfate 90 mcg/actuation 2 puff inhalation QID PRN sob 08/20/22 12/08/23 aerosol inhaler omeprazole 20 mg capsule,delayed 20 mg PO AMHS 07/15/23 12/08/23 release apixaban 5 mg tablet (Eliquis) 5 mg PO Q12 11/16/23 12/08/23 baclofen 10 mg tablet 10 mg PO TID PRN .muscle spasm 11/16/23 12/08/23 cholecalciferol (vitamin D3) 1,250 50,000 unit PO WE 11/16/23 12/08/23 mcg (50,000 unit) capsule furosemide 40 mg tablet 40 mg PO BID 11/16/23 12/08/23 ipratropium 0.5 mg-albuterol 3 mg 3 ml inhalation QID PRN Shortness 11/16/23 12/08/23 (2.5 mg base)/3 mL nebulization Of Breath Or Wheezing soln iron,carbonyl 65 mg-vitamin C 125 2 tab PO QAM 11/16/23 12/08/23 mg tablet,delayed release (Vitron-C) metoprolol succinate 25 mg 25 mg PO QAM 11/16/23 12/08/23 tablet,extended release 24 hr mirtazapine 30 mg tablet 30 mg PO HS 11/16/23 12/08/23 nystatin 100,000 unit/gram topical 1 applic topical BID 11/16/23 12/08/23 powder (Nyamyc) sertraline 50 mg tablet 50 mg PO HS 11/16/23 12/08/23 buspirone 5 mg tablet 5 mg PO TID 12/08/23 12/08/23 docusate sodium 100 mg capsule 100 mg PO BID 12/08/23 12/08/23 gabapentin 300 mg capsule 300 mg PO TID 12/08/23 12/08/23 Previous Rx's Medication Instructions Recorded montelukast 10 mg tablet 10 mg PO HS #30 tabs 07/23/23 donepezil 10 mg tablet 10 mg PO QAM #30 tabs 11/26/23 lorazepam 0.5 mg tablet 0.5 mg PO QID #28 tabs 11/26/23 tramadol 50 mg tablet 50 mg PO Q6H PRN pain #20 tabs 11/26/23 Results & Data (ED) Vital Signs Vital Signs - 24 hr 12/08/23 16:01 12/08/23 16:15 12/08/23 16:20 Temperature 37.6 C H Temperature Source Oral Pulse Rate 82 79 Pulse Rate [Right Finger] Pulse Rate from SpO2 Sensor Respiratory Rate 15 Respiratory Effort / Characteristics Non-Labored Spontaneous Spontaneous Short of Breath Respiratory Depth Blood Pressure 106/65 Blood Pressure [Right Arm] Blood Pressure Mean 78 Blood Pressure Mean [Right Arm] Blood Pressure Position [Right Arm] Pulse Oximetry 99 Oxygen Delivery Method Nasal Cannula Oxygen Flow Rate 5 Sepsis Recent Fever Within 48 Hours No Sepsis New/Unexplained Change in Mental Status N/A Sepsis Action Taken by Nursing No Action Required 12/08/23 17:00 12/08/23 17:07 12/08/23 17:36 Temperature Temperature Source Pulse Rate Pulse Rate [Right Finger] 77 Pulse Rate from SpO2 Sensor 78 78 Respiratory Rate 20 Respiratory Effort / Characteristics Spontaneous Respiratory Depth Blood Pressure 119/64 Blood Pressure [Right Arm] Blood Pressure Mean 82 Blood Pressure Mean [Right Arm] Blood Pressure Position [Right Arm] Pulse Oximetry 100 100 100 Oxygen Delivery Method Nebulizer Nasal Cannula Nebulizer Oxygen Flow Rate 5 Sepsis Recent Fever Within 48 Hours Sepsis New/Unexplained Change in Mental Status Sepsis Action Taken by Nursing 12/08/23 18:23 12/08/23 18:26 12/08/23 19:03 Temperature Temperature Source Pulse Rate Pulse Rate [Right Finger] 82 Pulse Rate from SpO2 Sensor Respiratory Rate 20 Respiratory Effort / Characteristics Non-Labored Spontaneous Respiratory Depth Normal Blood Pressure Blood Pressure [Right Arm] 101/56 L 100/61 Blood Pressure Mean Blood Pressure Mean [Right Arm] 71 74 Blood Pressure Position [Right Arm] Sitting Pulse Oximetry 99 98 Oxygen Delivery Method Nasal Cannula Room Air Oxygen Flow Rate 5 0 Sepsis Recent Fever Within 48 Hours Sepsis New/Unexplained Change in Mental Status Sepsis Action Taken by Nursing Laboratory Data Attestation: I reviewed the patient's lab results. 12/09/23 05:52 12/09/23 05:52 Lab Results 12/08/23 12/08/23 12/08/23 Range/Units 15:56 16:16 17:03 WBC 5.18 (4.8-10.8) K/ul RBC 2.80 L (4.20-5.40) M/uL Hgb 8.6 L (12.0-16.0) g/dl Hct 27.4 L (37.0-47.0) % MCV 97.9 (80.0-100.0) fL MCH 30.7 (25.0-34.0) pg MCHC 31.4 L (32.0-36.0) g/dL RDW Std Deviation 86.1 H (36.4-46.3) fL RDW Coeff of Ursula 24.2 H (11.5-14.5) % Plt Count 337 (130-400) K/uL MPV 8.7 L (9.4-12.4) fL Immature Gran % (Auto) 1.2 % Neut % (Auto) 60.7 % Lymph % (Auto) 22.4 % [place] % (Auto) 14.5 % Eos % (Auto) 1.0 % Baso % (Auto) 0.2 % Neut # (Auto) 3.15 (1.40-6.50) K/uL Lymph # (Auto) 1.16 L (1.20-3.40) K/uL [place] # (Auto) 0.75 H (0.11-0.59) K/uL Eos # (Auto) 0.05 (0.00-0.50) K/uL Baso # (Auto) 0.01 (0.00-0.20) K/uL Immature Gran # (Auto) 0.06 (0.01-0.20) K/uL Stomatocytes 2+ PT 10.5 (9.0-12.0) Seconds INR 1.0 (0.9-1.1) APTT 29 (21-31) Seconds PTT Ratio 1.0 VBG pH (7.36-7.41) VBG pCO2 (38-50) mmHg VBG pO2 mmHg VBG HCO3 mmol/L VBG O2 Saturation % VBG Base Excess mEq/L Sodium 136 (136-145) mmol/L Potassium 3.8 (3.5-5.1) mmol/L Chloride 99 (98-107) mmol/L Carbon Dioxide 33 H (21-32) mmol/L Anion Gap 4 (3-11) BUN 9 (6-23) mg/dl Creatinine 0.68 (0.6-1.2) mg/dl Est Cr Clr Drug Dosing 118.3 ml/min Est GFR ( Amer) 107.9 ml/min Est GFR (Non-Af Amer) 93.1 ml/min BUN/Creatinine Ratio 13.2 (10-20) Glucose 108 H (70-99(Fasting)) mg/dl Lactate (0.4-2.0) mmol/L Calcium 8.4 L (8.6-10.3) mg/dl Phosphorus 1.9 L (2.5-4.9) mg/dl Magnesium 1.8 (1.7-2.4) mg/dl Total Bilirubin 0.3 (0.2-1.0) mg/dl AST 17 (13-39) U/L ALT 16 (7-52) U/L Alkaline Phosphatase 59 (34-104) U/L Troponin I High Sens 5.2 (0-14) pg/ml B-Natriuretic Peptide 354 H (0-100) pg/ml Total Protein 6.0 (6.0-8.3) gm/dl Albumin 3.2 L (3.4-5.0) gm/dl Globulin 2.8 (2.5-4.0) gm/dl Albumin/Globulin Ratio 1.1 (0.9-2) Procalcitonin < 0.05 (0-0.5) ng/ml TSH 3.447 (0.300-4.500) uIu/ml Urine Color Yellow Urine Appearance Clear (Clear) Urine pH 7.0 (4.5-7.5) Ur Specific [place] 1.015 (1.000-1.030) Urine Protein Negative (Negative) Urine Glucose (UA) Negative (Negative) Urine Ketones Negative (Negative) Urine Blood Negative (Negative) Urine Nitrite Negative (Negative) Urine Bilirubin Negative (Negative) Urine Urobilinogen Negative (Negative) Ur Leukocyte Esterase Negative (Negative) Nasal Screen MRSA (PCR) (Negative) Adenovirus (PCR) Not Detected (NotDetected) B. pertussis DNA (PCR) Not Detected (NotDetected) B.parapertussis DNA PCR Not Detected (NotDetected) C. pneumoniae DNA (PCR) Not Detected (NotDetected) Coronavirus OC43 (PCR) Not Detected (NotDetected) Coronavirus HKU1 (PCR) Not Detected (NotDetected) Coronavirus 229E (PCR) Not Detected (NotDetected) SARS-CoV-2 (PCR) DETECTED A* (NotDetected) Coronavirus NL63 (PCR) Not Detected (NotDetected) Human Metapneumovir PCR Not Detected (NotDetected) Influenza Type A (PCR) Not Detected (NotDetected) Influenza Type B (PCR) Not Detected (NotDetected) M. pneumoniae (PCR) Not Detected (NotDetected) Parainfluenza 1 (PCR) Not Detected (NotDetected) Parainfluenza 2 (PCR) Not Detected (NotDetected) Parainfluenza 3 (PCR) Not Detected (NotDetected) Parainfluenza 4 (PCR) Not Detected (NotDetected) RSV (PCR) Not Detected (NotDetected) Entero/Rhino (PCR) Not Detected (NotDetected) 12/08/23 12/08/23 Range/Units 17:11 17:30 WBC (4.8-10.8) K/ul RBC (4.20-5.40) M/uL Hgb (12.0-16.0) g/dl Hct (37.0-47.0) % MCV (80.0-100.0) fL MCH (25.0-34.0) pg MCHC (32.0-36.0) g/dL RDW Std Deviation (36.4-46.3) fL RDW Coeff of Ursula (11.5-14.5) % Plt Count (130-400) K/uL MPV (9.4-12.4) fL Immature Gran % (Auto) % Neut % (Auto) % Lymph % (Auto) % [place] % (Auto) % Eos % (Auto) % Baso % (Auto) % Neut # (Auto) (1.40-6.50) K/uL Lymph # (Auto) (1.20-3.40) K/uL [place] # (Auto) (0.11-0.59) K/uL Eos # (Auto) (0.00-0.50) K/uL Baso # (Auto) (0.00-0.20) K/uL Immature Gran # (Auto) (0.01-0.20) K/uL Stomatocytes PT (9.0-12.0) Seconds INR (0.9-1.1) APTT (21-31) Seconds PTT Ratio VBG pH 7.29 L (7.36-7.41) VBG pCO2 73 H (38-50) mmHg VBG pO2 27 mmHg VBG HCO3 35 mmol/L VBG O2 Saturation < 60.0 % VBG Base Excess 5.9 mEq/L Sodium (136-145) mmol/L Potassium (3.5-5.1) mmol/L Chloride (98-107) mmol/L Carbon Dioxide (21-32) mmol/L Anion Gap (3-11) BUN (6-23) mg/dl Creatinine (0.6-1.2) mg/dl Est Cr Clr Drug Dosing ml/min Est GFR ( Amer) ml/min Est GFR (Non-Af Amer) ml/min BUN/Creatinine Ratio (10-20) Glucose (70-99(Fasting)) mg/dl Lactate 1.0 (0.4-2.0) mmol/L Calcium (8.6-10.3) mg/dl Phosphorus (2.5-4.9) mg/dl Magnesium (1.7-2.4) mg/dl Total Bilirubin (0.2-1.0) mg/dl AST (13-39) U/L ALT (7-52) U/L Alkaline Phosphatase (34-104) U/L Troponin I High Sens (0-14) pg/ml B-Natriuretic Peptide (0-100) pg/ml Total Protein (6.0-8.3) gm/dl Albumin (3.4-5.0) gm/dl Globulin (2.5-4.0) gm/dl Albumin/Globulin Ratio (0.9-2) Procalcitonin (0-0.5) ng/ml TSH (0.300-4.500) uIu/ml Urine Color Urine Appearance (Clear) Urine pH (4.5-7.5) Ur Specific [place] (1.000-1.030) Urine Protein (Negative) Urine Glucose (UA) (Negative) Urine Ketones (Negative) Urine Blood (Negative) Urine Nitrite (Negative) Urine Bilirubin (Negative) Urine Urobilinogen (Negative) Ur Leukocyte Esterase (Negative) Nasal Screen MRSA (PCR) Negative (Negative) Adenovirus (PCR) (NotDetected) B. pertussis DNA (PCR) (NotDetected) B.parapertussis DNA PCR (NotDetected) C. pneumoniae DNA (PCR) (NotDetected) Coronavirus OC43 (PCR) (NotDetected) Coronavirus HKU1 (PCR) (NotDetected) Coronavirus 229E (PCR) (NotDetected) SARS-CoV-2 (PCR) (NotDetected) Coronavirus NL63 (PCR) (NotDetected) Human Metapneumovir PCR (NotDetected) Influenza Type A (PCR) (NotDetected) Influenza Type B (PCR) (NotDetected) M. pneumoniae (PCR) (NotDetected) Parainfluenza 1 (PCR) (NotDetected) Parainfluenza 2 (PCR) (NotDetected) Parainfluenza 3 (PCR) (NotDetected) Parainfluenza 4 (PCR) (NotDetected) RSV (PCR) (NotDetected) Entero/Rhino (PCR) (NotDetected) Administered Medications Acetaminophen (Acetaminophen 500 Mg Tab) 1,000 mg PO Q8H MARY Stop: 01/08/24 00:00 Last Admin: 12/08/23 23:42 Dose: 1,000 mg Documented By: ALEISHA Buspirone HCl (Buspirone 5 Mg Tab) 5 mg PO TID [facility] Stop: 01/07/24 21:52 Last Admin: 12/08/23 22:51 Dose: 5 mg Documented By: ALEISHA Gabapentin (Gabapentin 300 Mg Cap) 300 mg PO TID [facility] Stop: 01/07/24 21:52 Last Admin: 12/08/23 22:52 Dose: 300 mg Documented By: ALEISHA Azithromycin 500 mg/ Dextrose 255 mls @ 125 mls/hr IV Q24H MARY Stop: 12/11/23 21:59 Last Infusion: 12/09/23 02:23 Dose: Infused Documented By: Admin: 12/08/23 23:39 Dose: 125 mls/hr Documented By: ALEISHA Methylprednisolone 40 mg/ (Syringe) 0.64 mls @ 1.5 mls/min IV Q8H [facility] Stop: 01/08/24 00:59 Last Admin: 12/09/23 01:08 Dose: 1.5 mls/min Documented By: ALEISHA Lorazepam (Lorazepam 0.5 Mg Tab) 0.5 mg PO QID [facility] Stop: 01/07/24 21:52 Last Admin: 12/08/23 23:09 Dose: 0.5 mg Documented By: ALEISHA Miscellaneous (Order Awaiting Action [Iron,Carbonyl-Vitamin C [Vitron-C] 65 Mg Iron- 125 Mg Tablet,De]) 1 each N/A QS [facility] Stop: 01/08/24 00:00 Last Admin: 12/09/23 00:57 Dose: Not Given Documented By: ALEISHA Montelukast Sodium (Montelukast Sodium 10 Mg Tablet) 10 mg PO [facility] Stop: 01/07/24 21:52 Last Admin: 12/08/23 22:52 Dose: 10 mg Documented By: ALEISHA Pantoprazole Sodium (Pantoprazole 40 Mg Tab) 40 mg PO [facility]; Protocol Stop: 01/07/24 21:59 Last Admin: 12/08/23 23:41 Dose: 40 mg Documented By: ALEISHA Sertraline HCl (Sertraline Hcl 50 Mg Tablet) 50 mg PO [facility] Stop: 01/07/24 21:52 Last Admin: 12/08/23 22:51 Dose: 50 mg Documented By: ALEISHA Tramadol HCl (Tramadol Hcl 50 Mg Tablet) 50 mg PO Q6H PRN PRN Reason: Mod-Sev Pain (Scale 4-10) Stop: 01/07/24 21:52 Last Admin: 12/08/23 23:50 Dose: 50 mg Documented By: ALEISHA Discontinued Medications Albuterol (Albut/Ipratrop 3mg/0.5mg Neb 3 Ml Vial) 12 ml NEB ONE ONE; Protocol Stop: 12/08/23 16:38 Last Admin: 12/08/23 17:07 Dose: 12 ml Documented By: ABIODUN Apixaban (Apixaban 5 Mg Tablet) 5 mg PO NOW STA Stop: 12/08/23 19:19 Last Admin: 12/08/23 19:30 Dose: 5 mg Documented By: UBALDO Furosemide (Furosemide 40 Mg/4 Ml Vial) 40 mg IV ONE ONE Stop: 12/08/23 18:09 Last Admin: 12/08/23 18:28 Dose: 40 mg Documented By: DOLLY Guaifenesin (Guaifenesin 600 Mg Tabcr) 1,200 mg PO NOW STA Stop: 12/08/23 16:38 Last Admin: 12/08/23 17:40 Dose: 1,200 mg Documented By: DOLLY Acetaminophen (Ofirmev) 1,000 mg in 100 mls @ 400 mls/hr IV NOW STA Stop: 12/08/23 16:51 Last Infusion: 12/08/23 18:28 Dose: Infused Documented By: Admin: 12/08/23 17:40 Dose: 400 mls/hr Documented By: DOLLY Cefepime HCl (Maxipime) 2,000 mg in 20 mls @ 5 mls/min IV NOW STA; Protocol Stop: 12/08/23 16:45 Last Admin: 12/08/23 17:40 Dose: 5 mls/min Documented By: DOLLY Sodium Chloride (Nss) 500 mls @ 999 mls/hr IV .Q31M ONE Stop: 12/08/23 21:44 Last Infusion: 12/08/23 22:30 Dose: Infused Documented By: Admin: 12/08/23 21:24 Dose: 999 mls/hr Documented By: UBALDO Potassium Phosphate 21 mmol/ (Sodium Chloride) 507 mls @ 88 mls/hr IV ONE ONE Stop: 12/09/23 04:00 Last Infusion: 12/09/23 06:02 Dose: Infused Documented By: Admin: 12/08/23 23:03 Dose: 88 mls/hr Documented By: ALEISHA Albumin Human (Albumin 25%) 25 gm in 100 mls @ 50 mls/hr IV ONE ONE Stop: 12/09/23 00:26 Last Infusion: 12/09/23 01:05 Dose: Infused Documented By: Admin: 12/08/23 22:41 Dose: 50 mls/hr Documented By: EDUARDO Magnesium Sulfate/Dextrose (Magnesium Sulfate / D5w) 1 gm in 100 mls @ 50 mls/hr IV ONE ONE Stop: 12/09/23 00:27 Last Infusion: 12/09/23 01:05 Dose: Infused Documented By: Admin: 12/08/23 23:04 Dose: 50 mls/hr Documented By: ALEISHA Methylprednisolone (Methylprednisolone 125 Mg/2 Ml Vial) 125 mg IV NOW STA Stop: 12/08/23 16:38 Last Admin: 12/08/23 17:38 Dose: 125 mg Documented By: DOLLY Imaging Data Radiologist's Impression: Chest X-Ray 12/08/23 15:55 XR chest 1V portable CLINICAL HISTORY: Chest pain, nonspecific TECHNIQUE: Single frontal radiograph of the chest was obtained. Comparison: Comparison is made to chest radiograph 11/23/2023 FINDINGS: Exam is limited by underpenetration. Cardiomegaly is noted. The lungs are clear. No evidence of pleural effusion or pneumothorax. IMPRESSION: No acute chest disease. ACT 112: Negative or not required by law. Electronically signed by: Joesph Hoyt M.D. 12/08/2023 4:48 PM Discharge Plan Visit Data Chief Complaint: Shortness of Breath/Dyspnea ED Provider: Khang Arvizu Discharge Problem: COVID-19, COPD (chronic obstructive pulmonary disease), Congestive heart failure Patient Disposition: Admitted As Inpatient Discharge Instructions Interventions: ED Discharge Assessment Last Done: 12/08/23 21:16 Discharge Problem: COPD (chronic obstructive pulmonary disease) Qualifiers: COPD type: COPD with acute exacerbation Qualified Code(s): J44.1 - Chronic obstructive pulmonary disease with (acute) exacerbation Congestive heart failure Qualifiers: Heart failure type: unspecified Heart failure chronicity: acute on chronic Q ualified Code(s): I50.9 - Heart failure, unspecified
[2023-12-08 16:25] LABS: Basophils # (auto) 0.01 K/uL (0.00-0.20); Basophils % (auto) 0.2 %; Eosinophils # (auto) 0.05 K/uL (0.00-0.50); Hematocrit (blood only) 27.4 % (37.0-47.0); Hemoglobin 8.6 g/dl (12.0-16.0); Immature Granulocytes # (auto) 0.06 K/uL (0.01-0.20); Immature Granulocytes % (auto) 1.2 %; Lymphocytes # (auto) 1.16 K/uL (1.20-3.40); Lymphocytes % (auto) 22.4 %; Mean Corpuscular Hemoglobin 30.7 pg (25.0-34.0); Mean Corpuscular Hgb Conc 31.4 g/dL (32.0-36.0); Mean Corpuscular Volume 97.9 fL (80.0-100.0); Mean Platelet Volume 8.7 fL (9.4-12.4); Monocytes # (auto) 0.75 K/uL (0.11-0.59); Monocytes % (auto) 14.5 %; Neutrophils # (auto) 3.15 K/uL (1.40-6.50); Neutrophils % (auto) 60.7 %; Platelet Count 337 K/uL (130-400); RDW Coefficient of Variation 24.2 % (11.5-14.5); RDW Standard Deviation 86.1 fL (36.4-46.3); White Blood Count 5.18 K/ul (4.8-10.8)
[2023-12-08 16:36] LABS: Albumin Globulin Ratio 1.1 (0.9-2); Albumin Level 3.2 gm/dl (3.4-5.0); BUN Creatinine Ratio 13.2 (10-20); Bilirubin,Total 0.3 mg/dl (0.2-1.0); Calcium 8.4 mg/dl (8.6-10.3); Creatinine Clr Calc Pharmacy 118.3 ml/min; Est GFR (African American) 107.9 ml/min; Est GFR (Non-African American) 93.1 ml/min; Globulin 2.8 gm/dl (2.5-4.0); Magnesium 1.8 mg/dl (1.7-2.4); Phosphorus 1.9 mg/dl (2.5-4.9); Potassium 3.8 mmol/L (3.5-5.1)
[2023-12-08 16:41] LABS: Troponin I High Sensitivity 5.2 pg/ml (0-14)
--- NOTE | 2023-12-08 16:49 | XRay Report ---
XR chest 1V portable CLINICAL HISTORY: Chest pain, nonspecific TECHNIQUE: Single frontal radiograph of the chest was obtained. Comparison: Comparison is made to chest radiograph 11/23/2023 FINDINGS: Exam is limited by underpenetration. Cardiomegaly is noted. The lungs are clear. No evidence of pleur al effusion or pneumothorax. IMPRESSION: No acute chest disease. ACT 112: Negative or not required by law. Electronically signed by: Joesph Hoyt M.D. 12/08/2023 4:48 PM
[2023-12-08 16:51] LABS: Thyroid Stimulating Hormone 3.447 uIu/ml (0.300-4.500)
[2023-12-08 16:52] LABS: Partial Thromboplastin Time 29 Seconds (21-31); Prothrombin Time 10.5 Seconds (9.0-12.0)
[2023-12-08 16:54] LABS: Stomatocytes 2+
[2023-12-08] MEDS: ALBUT/IPRATROP 3MG/0.5MG NEB 3 ML VIAL NEB ONE (17:07)
[2023-12-08 17:09] LABS: Appearance Urine Clear (Clear); Bilirubin Urine Negative (Negative); Blood Urine Negative (Negative); Color Urine Yellow; Glucose Urine UA Negative (Negative); Ketones Urine Negative (Negative); Leukocyte Esterase Urine Negative (Negative); Nitrite Urine Negative (Negative); Protein Urine Negative (Negative); Specific Gravity Urine 1.015 (1.000-1.030); Urobilinogen Urine Negative (Negative)
[2023-12-08 17:13] LABS: Adenovirus PCR Not Detected (NotDetected); Bordetella parapertussis PCR Not Detected (NotDetected); Bordetella pertussis PCR Not Detected (NotDetected); Chlamydia pneumoniae PCR Not Detected (NotDetected); Coronavirus 229E PCR Not Detected (NotDetected); Coronavirus HKU1 PCR Not Detected (NotDetected); Coronavirus NL63 PCR Not Detected (NotDetected); Coronavirus OC43PCR Not Detected (NotDetected); Human Metapneumovirus PCR Not Detected (NotDetected); Influenza A PCR Not Detected (NotDetected); Influenza B PCR Not Detected (NotDetected); Mycoplasma pneumoniae PCR Not Detected (NotDetected); Parainfluenza Virus 1 PCR Not Detected (NotDetected); Parainfluenza Virus 2 PCR Not Detected (NotDetected); Parainfluenza Virus 3 PCR Not Detected (NotDetected); Parainfluenza Virus 4 PCR Not Detected (NotDetected); Respiratory Syncytial VirusPCR Not Detected (NotDetected); Rhinovirus/Enterovirus PCR Not Detected (NotDetected)
[2023-12-08 17:24] LABS: Base Excess VBG 5.9 mEq/L; HCO3 VBG 35 mmol/L; Oxygen Saturation VBG < 60.0 %; PCO2 VBG 73 mmHg (38-50); PO2 VBG 27 mmHg; pH VBG 7.29 (7.36-7.41)
[2023-12-08 17:29] LABS: Coronavirus CoV-2 (COVID19)PCR DETECTED (NotDetected)
[2023-12-08] MEDS: methylPREDNISolone 125 MG/2 ML VIAL IV STA (17:38)
[2023-12-08] MEDS: ACETAMINOPHEN 1,000 MG/100 ML VIAL IV STA (17:40)
[2023-12-08] MEDS: guaiFENesin 600 MG TABCR PO STA (17:40)
[2023-12-08] MEDS: CEFEPIME 2,000 MG/20 ML VIAL IV STA (17:40)
[2023-12-08] MEDS: FUROSEMIDE 40 MG/4 ML VIAL IV ONE (18:28)
--- NOTE | 2023-12-08 18:42 | History & Physical Report ---
Date of Service December 08, 2023 Assessment & Plan (1) COVID-19: (2) COPD exacerbation: (3) Chronic respiratory failure with hypoxia: Plan: Patient is 63-year-old female with PMH COPD, chronic hypoxic respiratory failure on chronic 4-5 L oxygen, paroxysmal atrial fibrillation anticoagulated on Eliquis, chronic diastolic heart failure, anxiety, depression, dementia, chronic pain, chronic anemia presented to ER with complaint of cough, SOB, sore throat x 2 days. In ER T: 37.6 C, P: 82, R: 15, BP 106/65, 99% on 5 L nasal cannula No leukocytosis, lactate and procalcitonin WNL vbg: pH: 7.29, pCO2: 73, HCO3: 35 CXR: No acute disease In ER empirically treated with cefepime, received hour-long nebulizer, Solu- Medrol 125 mg, IV Tylenol, Mucinex Airborne isolation Continue home supplemental oxygen Solu-Medrol 40 mg Q8H for COPD exacerbation Scheduled duonebs Incentive spirometry, flutter valve Mucinex Zithromax Will start patient on bipap CBC, BMP, VBG in am Once patient with improvement will require PT/OT eval (4) Acute on chronic diastolic (congestive) heart failure: Plan: BNP: 354 In ER given 40 mg Lasix IV. Herrera catheter placed and patient starting to diurese Monitor I's and O's, daily weights (Home dose of lasix was 40mg MWF & increased to 40mg BID on 12/06/23) Monitor response of diuresis, likely will need further lasix dose 08/18/2023 echo: EF: 65-70%, grade 1 diastolic dysfunction, mild tricuspid regurgitation (5) Hypophosphatemia: Plan: Phosphate: 1.9 Replace and monitor (6) PAF (paroxysmal atrial fibrillation): Plan: Anticoagulated on Eliquis Continue Eliquis, metoprolol with holding parameters (7) Anxiety and depression: Plan: Continue sertraline, buspirone, lorazepam (8) Dementia: Plan: Continue donezepil (9) Chronic pain: Plan: Reported chronic left hip and left leg pain Continue gabapentin, baclofen and tramadol as needed Scheduled Tylenol for now (10) Chronic anemia: Plan: History of chronic anemia. History iron deficiency anemia. History of GI bleed in 07/2023 H/H: 8.6/27. Hgb was 9.6 on 11/26/2023 Continue iron supplement DVT Prophylaxis On Eliquis Full Code as per discussion with pt Follows with Dr Alexandra for routine care Pt was seen and care coordinated with Dr Brand. See addendum I spent a total of 76 minutes reviewing notes, outpatient records, labs, medication, coordinating, documenting and providing care for this patient excluding time spent in the performance of separately billed services. History of Present Illness Chief Complaint: Cough and shortness of breath Primary Care Provider: Roger Alexandra MD Patient is 63-year-old female with PMH COPD, chronic hypoxic respiratory failure on chronic 4 L oxygen, paroxysmal atrial fibrillation anticoagulated on Eliquis, chronic diastolic heart failure, anxiety, depression, dementia, chronic pain, chronic anemia presented to ER with complaint of cough and shortness of breath x 2 days. History obtained from patient as well as inpatient and outpatient chart review. Patient with history hospitalization 11/16/2023-11/26/2023 E. coli UTI, vomiting diarrhea illness with electrolyte abnormality and was treated with IV Rocephin x 5 days, discharged on cefdinir for 6 more days. Patient was discharged to [facility] for rehab. She reports she returned home on 12/05/2023. States on 12/06/2023 woke up with sore throat, congestion, cough. She also reports has been having wheezing and feeling short of breath. Past 2 days with fatigue and generalized weakness and states that she just been laying in bed. Reports minimal oral intake. States has been using her oxygen at 5 L. She reports she has been having home health come in to see her. Her Lasix was to be increased from 40 mg daily to 40 mg twice daily on 12/06/2023 secondary to increased BLE edema. It is reported Home health was in to see patient today and found that she had been lying in her bed and was soiled and had reported noted BLE edema and noted audible wheezing. EMS was called to transport patient to ER. Patient states did not take her medications yesterday or today. She states yesterday had 3 episodes of vomiting and 1-2 episodes of loose stool. Reports was ambulating with walker upon return home from [facility]. She reports chronic pain to left hip and left leg. Denies any known fever/chills, diaphoresis, hematemesis, hematochezia, melena, CARVALHO, dizziness, CP, palpitations, hemoptysis, otalgia, abdominal pain, paresthesias, rashes, urinary symptoms. Allergies Allergy/AdvReac Type Severity Reaction Status Date / Time aspirin Allergy Unknown TAKES Verified 12/08/23 17:47 COUMADIN salicylates AdvReac Unknown ?DUE TO Verified 12/08/23 17:47 COUMADIN? Home Medications Medication Instructions Recorded Confirmed Type albuterol sulfate 5 mg/mL(0.5 %) 2.5 mg inhalation DIRECTED PRN 08/20/22 12/08/23 History solution for nebulization Shortness Of Breath Or Wheezing albuterol sulfate 90 mcg/actuation 2 puff inhalation QID PRN sob 08/20/22 12/08/23 History aerosol inhaler omeprazole 20 mg capsule,delayed 20 mg PO AMHS 07/15/23 12/08/23 History release montelukast 10 mg tablet 10 mg PO HS #30 tabs 07/23/23 12/08/23 Rx apixaban 5 mg tablet (Eliquis) 5 mg PO Q12 11/16/23 12/08/23 History baclofen 10 mg tablet 10 mg PO TID PRN .muscle spasm 11/16/23 12/08/23 History cholecalciferol (vitamin D3) 1,250 50,000 unit PO WE 11/16/23 12/08/23 History mcg (50,000 unit) capsule furosemide 40 mg tablet 40 mg PO BID 11/16/23 12/08/23 History ipratropium 0.5 mg-albuterol 3 mg 3 ml inhalation QID PRN Shortness 11/16/23 12/08/23 History (2.5 mg base)/3 mL nebulization Of Breath Or Wheezing soln iron,carbonyl 65 mg-vitamin C 125 2 tab PO QAM 11/16/23 12/08/23 History mg tablet,delayed release (Vitron-C) metoprolol succinate 25 mg 25 mg PO QAM 11/16/23 12/08/23 History tablet,extended release 24 hr mirtazapine 30 mg tablet 30 mg PO HS 11/16/23 12/08/23 History nystatin 100,000 unit/gram topical 1 applic topical BID 11/16/23 12/08/23 History powder (Nyamyc) sertraline 50 mg tablet 50 mg PO HS 11/16/23 12/08/23 History donepezil 10 mg tablet 10 mg PO QAM #30 tabs 11/26/23 12/08/23 Rx lorazepam 0.5 mg tablet 0.5 mg PO QID #28 tabs 11/26/23 12/08/23 Rx tramadol 50 mg tablet 50 mg PO Q6H PRN pain #20 tabs 11/26/23 12/08/23 Rx buspirone 5 mg tablet 5 mg PO TID 12/08/23 12/08/23 History docusate sodium 100 mg capsule 100 mg PO BID 12/08/23 12/08/23 History gabapentin 300 mg capsule 300 mg PO TID 12/08/23 12/08/23 History Past Med/Surg History Medical History Swelling of left hand Encounter for pre-operative examination Sleep apnea mild RUFINA (dx in ) no machine currently -- pt to have another sleep study february 2023. Osteoarthritis Degenerative disc disease Urinary incontinence Peripheral neuropathy Anemia Congestive heart failure follows with [facility] cardiology (Patricia banks) Hypertension Dementia "very early stages" Alert and oriented x3. granddaughter is the caregiver of patient. Post traumatic stress disorder On home oxygen therapy continuous 3lpm via n/c. (will increase to 4lpm via n/c if needed) History of COVID-19 Spring 2020. treated at [facility] inpatient. symptoms included: sob, cough, desaturation 84-87%, congestion, headache, fatigue. no ventilator at the time. no current problems. Diarrhea started about 1 year ago -- will come and go. Chronic respiratory failure with hypoxia COPD (chronic obstructive pulmonary disease) Submucosal lesion of stomach Noted on EGD 11/06/20 Anticoagulated on Coumadin Paroxysmal A-fib feels her heart race at times. Chronic pain on daily narcotics (tramadol PRN) Morbid obesity Anxiety and depression History of stroke "embolic stroke, underlying PFO" total of 9 strokes -> last stroke ~6+years ago. damaged urinary nerve and mild left sided weakness. Surgical History Hx of lumpectomy left breast (benign) History of cataract surgery bilateral History of cardiac cath [facility] - "long time ago" -- pt unsure of details. H/O colonoscopy H/O esophagogastroduodenoscopy Status post hernia repair Right inguinal Status post hysterectomy MERT with BSO Status post cholecystectomy Family History Grandmother (Maternal) FHx: bladder cancer Father FHx: stroke Other Heart disease No family history of adverse response to anesthesia Social History Smoking Status: Former smoker Tobacco Type: Cigarettes Cigarettes Per Day: 2 ppd; Second Hand Exposure: No; Do You Dip or Chew Tobacco: No; Hx Alcohol Use: No Hx Substance Use: No Preferred Language: Gibraltarian Communication Ability: Effective Business Intelligence Etl Developer Required: No Beliefs That Will Affect Care: None marital status: / Current Living Situation: Alone Current Living Situation Comment: Lives home teddy, granddaughter clarice assist patient Other Information That Helps Us Care for You: No Feels Safe at Home: Yes Safety Concerns: Feels Safe At This Time Assistive Devices: Denture - Upper and Walker Review of Systems Review of Systems: All systems reviewed & are unremarkable except as noted in HPI & below Physical Exam Physical Exam: General: no acute distress, chronic ill appearing, obese female Head: normocephalic, atraumatic Eyes: conjunctiva non-injected, anicteric ENT: normal inspection external ears, nose, mucous membranes moist Neck: supple, trachea midline Lungs: no respiratory distress on current 5L via NC, +diffuse wheezing thr oughout CV: RRR, 1+ pretibial edema Abd: Protuberant, normal BS, soft, non-tender Ext: no cyanosis, no calf tenderness Neuro: A&O x 3, no focal deficits noted, flat affect Skin: warm, dry Results & Data Results & Data Vital Signs (Past 12 Hours) Vital Signs Temp Pulse Pulse Resp BP BP Pulse Ox 12/08/23 18:26 100/61 12/08/23 18:23 82 20 101/56 L 99 12/08/23 17:36 119/64 100 12/08/23 17:07 77 20 100 12/08/23 17:00 100 01/24/24 16:15 79 12/08/23 16:01 37.6 C H 82 15 106/65 99 O2 Del Method O2 Flow Rate 12/08/23 18:26 12/08/23 18:23 Nasal Cannula 5 12/08/23 17:36 Nebulizer 12/08/23 17:07 Nasal Cannula 5 12/08/23 17:00 Nebulizer 12/08/23 16:15 12/08/23 16:01 Nasal Cannula 5 Laboratory Results Short CBC 12/08/23 Range/Units 15:56 WBC 5.18 (4.8-10.8) K/ul Hgb 8.6 L (12.0-16.0) g/dl Hct 27.4 L (37.0-47.0) % Plt Count 337 (130-400) K/uL BMP 12/08/23 15:56 Sodium 136 Potassium 3.8 Chloride 99 Carbon Dioxide 33 H BUN 9 Creatinine 0.68 Glucose 108 H Calcium 8.4 L Liver Function 12/08/23 Range/Units 15:56 Total Bilirubin 0.3 (0.2-1.0) mg/dl AST 17 (13-39) U/L ALT 16 (7-52) U/L Alkaline Phosphatase 59 (34-104) U/L Albumin 3.2 L (3.4-5.0) gm/dl Urine 12/08/23 Range/Units 17:03 Urine Color Yellow Urine Appearance Clear (Clear) Urine pH 7.0 (4.5-7.5) Ur Specific [place] 1.015 (1.000-1.030) Urine Protein Negative (Negative) Urine Glucose (UA) Negative (Negative) Diagnostic Findings Chest X-Ray 12/08/23 15:55 XR chest 1V portable CLINICAL HISTORY: Chest pain, nonspecific TECHNIQUE: Single frontal radiograph of the chest was obtained. Comparison: Comparison is made to chest radiograph 11/23/2023 FINDINGS: Exam is limited by underpenetration. Cardiomegaly is noted. The lungs are clear. No evidence of pleural effusion or pneumothorax. IMPRESSION: No acute chest disease. ACT 112: Negative or not required by law. Electronically signed by: Joesph Hoyt M.D. 12/08/2023 4:48 PM Supervising Physician Co-Signing Physician Notes I have seen and examined the patient and have discussed the case with the provider above. I agree with the assessment and plan as stated with the following exceptions. 63 yo morbidly obese female presents with worsening shortness of breath and significant wheezing after infection with covid-19. She has been ill for the l ast couple of days. She is chronically hypoxic and around her baseline oxygen needs but with increased work of breathing and lethargy. She was given Lasix 40mg IV and had 1L output into her herrera. However, as a result, she became hypotensive requiring a fluid bolus. She is mentating clearly but is very weak to the point she cannot roll over or easily lift her arms. She is diaphoretic and febrile. She is not working to breath with diffuse wheezing present in all lung mena. She is tearful but does not appear in distress. Cardiac exam reveals S1/2 heard without murmurs, no edema, reg rate and rhythm. She is morbidly obese. Abdomen is soft, NTND. Workup included a clear CXR, pos COVID, and respiratory acidosis. No leukocytosis, H/H is low but stable. Low phos likely related to poor PO intake. Acute on chronic hypercarbic respiratory failure with hypoxia 2/2 COPD exacerbation 2/2 covid-19 virus. Cont plan for azithromycin, solumedrol, scheduled duonebs and oxygen support as needed. Adding BIPAP now for the acute respiratory acidosis. NSS bolus to correct hypotension and hold off on additional Lasix for the time being. NPO until her respiratory status stabilizes. Transfer to PCU on monitor. Patient has underlying dementia, now on steroids setting her up for a high risk of hospital delirium. Reorient as needed and keep good day/night cycles. DO Sunday
[2023-12-08] MEDS: APIXABAN 5 MG TABLET PO STA (19:30)
[2023-12-08] MEDS: SODIUM CHLORIDE 0.9% 500 ML IV ONE (21:24)
[2023-12-08] MEDS ORDERED: POLYETHYLENE (MIRALAX) 17 GM PACK PO PRN (21:53)
[2023-12-08] MEDS ORDERED: POTASSIUM PHOS 3 MMOL/1 ML INFUSION IV STA (21:53)
[2023-12-08] MEDS ORDERED: PROMETHAZINE HCL 6.25 MG in SODIUM CHLORIDE 0.9% 50 ML IV PRN (21:53)
[2023-12-08] MEDS: ALBUMIN 25% 25 GM/100 ML VIAL IV ONE (22:41)
[2023-12-08] MEDS: busPIRone 5 MG TAB PO SCH (22:51)
[2023-12-08] MEDS: SERTRALINE HCL 50 MG TABLET PO SCH (22:51)
[2023-12-08] MEDS: MONTELUKAST SODIUM 10 MG TABLET PO SCH (22:52)
[2023-12-08] MEDS: GABAPENTIN 300 MG CAP PO SCH (22:52)
[2023-12-08] MEDS: POTASSIUM PHOSPHATE 21 MMOL in SODIUM CHLORIDE 0.9% 500 ML IV ONE (23:03)
[2023-12-08] MEDS: MAGNESIUM SULFATE / D5W 1 GM/100 ML BAG IV ONE (23:04)
[2023-12-08 23:07] LABS: Base Excess ABG 4.6 mEq/L (-9-1.8); HCO3 ABG 32 mmol/L (19-24); Oxygen Saturation ABG 97.9 % (90-95); PCO2 ABG 56 mmHg (35-46); PO2 ABG 88 mmHg (80-95); pH ABG 7.36 (7.35-7.45)
[2023-12-08] MEDS: LORazepam 0.5 MG TAB PO SCH (23:09)
[2023-12-08 23:13] LABS: Allen Test Pos (Pos)
[2023-12-08] MEDS: AZITHROMYCIN 500 MG in DEXTROSE 5% 250 ML IV SCH (23:39)
[2023-12-08] MEDS: PANTOprazole 40 MG TAB PO SCH (23:41)
[2023-12-08] MEDS: ACETAMINOPHEN 500 MG TAB PO SCH (23:42)
[2023-12-08] MEDS: traMADol HCL 50 MG TABLET PO PRN (23:50)
[2023-12-09] MEDS: methylPREDNISolone 40 MG in SYRINGE 0 ML IV SCH (01:08)
--- OUTSIDE RECORDS SUMMARY | 2023-12-09 01:42 | External Medical Summary | Summary of Care ---
Author Name Unknown Organization [facility] Address [address] [address] Phone [phone] Care Team Providers Care Etl Manager Name Role Phone Jeevan Mclean MD Primary Care Provider [phone] Reason for Visit * Reason Onset Date Comments Medication Refill 12/03/2023 Encounter Details Date Type Department Care Team (Late st Contact Info) Description 12/03/2023 Refill Family Practice [facility] [address] [place] [id number] Jeevan Mclean MD [address] [place] [place] [id number] Chronic bilateral low back pain without sciatica; Chronic diastolic CHF (congestive heart failure) (HCC) Allergies Active Allergy Reactions Criticality Noted Date Comments Aspirin Unknown 12/12/2007 von Willebrand's disease Salicylates 03/01/2000 von Willebrand's disease documented as of this encounter (statuses as of 12/06/2023) Medications Medication Sig Dispensed Refills Start Date End Date Status oxygen IN GASIndications:Pain Management Nurse 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 respiratory 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 1 Each 0 2022 Active Additional Information Patient taking differently: Use 4 LPM at rest, 5 LPM with exertion and 4 LPM with sleep., Reported on 12/16/2022 Nebulizer DeviceIndications:C OPD, group D, by GOLD [...] wheezing. J44.9 90 mL 3 03/18/2023 Active Isosorbide Mononitrate ER 30 MG Oral [...] the morning. 30 Tablet 1 08/24/2023 Active Vitamin D3 25 MCG (1000 UT) Oral Capsule Take by mouth. 0 Active traMADol HCl (ER Biphasic) 100 MG Oral Capsule Extended Release 24 Hour Take 1 Capsule by mouth every 8 hours as needed for Pain, Severe. 0 Active Incruse Ellipta 62.5 MCG/ACT Inhalation Aerosol Powder Breath Activated (umeclidinium [place]) Inhale 1 Puff by mouth in the [...] 04, 2023. 120 Tablet 1 10/04/2023 Active Ramelteon 8 MG Oral Tablet (Rozerem) Take 1 Tablet by mouth at bedtime. 30 Tablet 0 10/09/2023 Active Vitamin D3 1.25 MG (71713 UT) Oral Capsule Take 1 Capsule by mouth once a week. 4 Capsule 0 10/09/2023 Active Metoprolol Succinate ER 25 [...] at bedtime 30 Tablet 0 11/05/2023 Active Nystatin 521109 UNIT/GM External Powder (Nyamyc) apply to affected area twice a day 60 g 1 12/06/2023 Active Acetaminophen-Codei ne 300-30 MG Oral TabletIndications:C hronic bilateral low back pain without sciatica Take 1 Tablet by mouth every 6 hours as needed for Pain, Moderate. 120 Tablet 0 12/06/2023 Active Furosemide 40 MG Oral Tablet (Lasix)Indications: Chronic diastolic CHF (congestive heart failure) ([facility]) Take 1 Tablet by mouth in the morning and 1 Tablet before bedtime. 60 Tablet 5 12/06/2023 Active Baclofen 10 MG Oral Tablet (Lioresal)Indicatio ns:Chronic bilateral low back pain without sciatica Take 1 Tablet by mouth 3 times a day as needed for Muscle spasms. 90 Tablet 0 12/06/2023 Active Nystatin 961380 UNIT/GM External Powder (Nyamyc) apply to affected area twice a day 60 g 1 05/10/2023 4 Discontinu ed(Refill) Acetaminophen-Codei ne 300-30 MG Oral TabletIndications:C hronic bilateral low back pain without sciatica Take 1 Tablet by mouth every 6 hours as needed for Pain, Moderate. 120 Tablet 0 09/07/2023 4 Discontinu ed(Refill) Furosemide 40 MG Oral Tablet (Lasix)Indications: Chronic diastolic CHF (congestive heart failure) ([facility]) take 1 tablet by mouth twice a day 60 Tablet 0 10/09/2023 4 Discontinu ed(Refill) Baclofen 10 MG Oral Tablet (Lioresal)Indicatio ns:Chronic bilateral low back pain without sciatica take 1 tablet by mouth three times a day if needed for muscle spasm 90 Tablet 0 11/01/2023 4 Discontinu ed(Refill) Hospital, Clinic, or Other Facility [...] as of this encounter (statuses as of 12/06/2023) Active Problems Problem Noted Date Diagnosed Date [...] as of this encounter (statuses as of 12/06/2023) Resolved Problems Problem Noted Date Diagnosed Date [...] defect 02/04/2006 009 Atrial septal aneurysm 02/04/200612/21 continuous churn buttermaker current use of ant icoagulant therapy 06/01/2005 [...] as of this encounter (statuses as of 12/06/2023) Immunizations Name Administration Dates Next Due H1N1 [...] Telephone Encounter - Jeevan Mclean MD - 12/06/2023 9:34 AM ESTSigned Prescriptions: Disp Refills Nystatin 969998 UNIT/GM External Powder (N*60 g 1 Sig: apply to affected area twice a day Authorizing Provider: JEEVAN MCLEAN Acetaminophen-Codeine 300-30 MG Oral [id number] Ta*0 Sig: Take 1 Tablet by mouth every 6 hours as needed for Pain, Moderate. Authorizing Provider: JEEVAN MCLEAN Furosemide 40 MG Oral Table t (Lasix) 60 Tab*5 Sig: Take 1 Tablet by mouth in the morning and 1 Tablet before bedtime. Authorizing Provider: JEEVAN MCLEAN Ordering User: CESAR ENCINAS Baclofen 10 MG Oral Tablet (Lioresal) 90 Tab*0 Sig: Take 1 Tablet by mouth 3 times a day as needed for Muscle spasms. Authorizing Provider: JEEVAN MCLEAN * Telephone Encounter - Cesar Encinas, [facility] - 12/06/2023 8:15 AM ESTPending Prescriptions: Disp Refills Nystatin 557411 UNIT/GM External Powder (N*60 g 1 Sig: apply to affected area twice a day Acetaminophen-Codeine 300-30 MG Oral [id number] Ta*0 Sig: Take 1 Tablet by mouth every 6 hours as needed for Pain, Moderate. Baclofen 10 MG Oral Tablet (Lioresal) 90 Tab*0 Sig: Take 1 Tablet by mouth 3 times a day as needed for Muscle spasms. Signed Prescriptions: Disp Refills Furosemide 40 MG Oral Tablet (Lasix) 60 Tab*5 Sig: Take 1 Tablet by mouth in the morning and 1 Tablet before bedtime. Authorizing Provider: JEEVAN MCLEAN Ordering User: CESAR ENCINAS * Telephone Encounter - Cesar Encinas [facility] - 12/06/2023 8:13 AM EST I have reviewed the patients controlled substance dispensing history in the Prescription Drug Monitoring Program in compliance with the [facility] regulations before prescribing a controlled substance. PDMP checked on 12/06/2023. Pending Prescriptions: Disp Refills Nystatin [id number] UNIT/GM External Powder (*60 g 1 Sig: apply to affected area twice a day Acetaminophen-Codeine 300-30 MG Oral Tabl*120 Ta*0 Sig: Take 1 Tablet by mouth every 6 hours as needed for Pain, Moderate. Baclofen 10 MG Oral Tablet (Lioresal) 90 Tab*0 Sig: Take 1 Tablet by mouth 3 times a day as needed for Muscle spasms. Last Visit: 07/27/2023 (in office), 12/16/2022 (telemedicine) Next Visit: 12/10/2023 Date medication was last filled: 09/07/23 Date medication is due for refill: 12/07/22 Pharmacy: [id number] Is this request for a controlled substance? Yes and Urine Drug Screen Not completed Toxicology results: No results found. However, due to the size of the patient record, not all encounters were searched.Please check Results Review for a complete set of results. Please approve if appropriate. Thank You, Cesar Encinas [facility] Clinical Pharmacist [facility] ([facility]) (formerly Telepharmacy) [phone] 12/06/2023, 8:14 AM documented in this encounter Plan of Treatment Upcoming Encounters Date Type Department Care Team (Late st Contact Info) Description 12/10/2023 3:20 PM EST Office Visit Family [facility] [address] [place] [address] Jeevan Mclean MD [address] [place] [address] 01/31/2024 3:00 PM EDT Telemedicine Psychiatry, [facility] [address] [address] Hugo Alcantara MD [address] [place] [address] Scheduled Procedures Name Priority Associated [...] 02/16/2022 LUNG CANCER SCREENING - USE SMARTSET [id number] Completed 2023, 03/16/2022, 08/24/2018, Additional history exists GARDASIL-HPV IMMUNIZATION SERIES Aged Out No longer eligible based on patient's age to complete this topic MENINGOCOCCAL (MENACTRA/MENVEO) Aged Out No longer eligible based on patient's age to complete this topic documented as of this encounter Medical Devices Not on filedocumented as of this encounter Visit Diagnoses Diagnosis Chronic bilateral low back pain without sciatica Chronic diastolic CHF (congestive heart failure) (HCC) Chronic diastolic heart failure documented in this encounter Advance Directives Healthcare Agents on File Name Relationship Healthcare Agent Relationshi p Communication Laura Gant [facility] Rep resentative (appointed verbally by patient or by statute hierarchy) Darlene Gilbert [facility] Rep resentative (appointed verbally by patient or by statute hierarchy) Care Teams Etl Manager Relationship Specialty Start Date End Date Jeevan Mclean MD [address] [place] [id number] PCP - General Family Medicine 12/29/19 documented as of this encounter
--- OUTSIDE RECORDS SUMMARY | 2023-12-09 01:42 | External Medical Summary | Summary of Care ---
Author Name Unknown Organization [facility] Address [address] [facility] [place] [address] Phone [phone] Care Team Providers Care Construction Sales Representative Name Role Phone Roger Alexandra MD Primary Care Provider [phone] Reason for Visit * Reason Onset Date Comments Advice 12/07/2023 Home Health Prov ider Encounter Details Date Type Department Care Team (Late st Contact Info) Description 12/07/2023 Telephone Family Practice [facility] [address] [place] [address] Roger Alexandra MD [address] [place] [address] Advice (Home Health Provider) Allergies Active Allergy Reactions Criticality Noted Date Comments Aspirin Unknown 12/12/2007 von Willebrand's disease Salicylates 03/01/2000 von Willebrand's disease documented as of this encounter (statuses as of 12/08/2023) Medications Medication Sig Dispensed Refills Start Date [...] LPM with sleep., Reported on 12/16/2022 Nebulizer DeviceIndications:CO PD, group D, by GOLD [...] MCG/ACT Inhalation Aerosol Powder Breath Activated (umeclidinium [place]) Inhale 1 Puff by mouth in the morning. 0 Active Probiotic & Acidophilus Ex St Oral Capsule Take 2 Capsules by mouth every evening. 0 Active Apixaban 5 MG Oral Tablet (Eliquis) Take 1 Tablet by mouth in the morning and 1 Tablet before bedtime. 0 Active Ramelteon 8 MG Oral Tablet (Rozerem) Take 1 Tablet by mouth at bedtime. 30 Tablet 0 10/09/2023 Active Vitamin D3 1.25 MG (41002 UT) Oral Capsule Take 1 Capsule by [...] once daily 30 Tablet 0 11/05/2023 Active Nystatin 805591 UNIT/GM External Powder (Nyamyc) apply to affected area twice a day 60 g 1 12/06/2023 Active Acetaminophen-Codein e 300-30 MG Oral TabletIndications:Ch ronic bilateral low back pain without sciatica Take 1 Tablet by mouth every 6 hours as needed for Pain, Moderate. 120 Tablet 0 12/06/2023 Active Furosemide 40 MG Oral Tablet (Lasix)Indications:C hronic diastolic CHF (congestive heart failure) (HCC) Take 1 Tablet by mouth in the morning and 1 Tablet before bedtime. 60 Tablet 5 12/06/2023 Active Baclofen 10 MG Oral Tablet (Lioresal)Indication s:Chronic bilateral low back pain without sciatica Take 1 Tablet by mouth 3 times a day as needed for Muscle spasms. 90 Tablet 0 12/06/2023 Active Mirtazapine 30 MG Oral Tablet (Remeron) Take 1 Tablet by mouth at bedtime. 30 Tablet 0 12/06/2023 Active LORazepam 0.5 MG Oral Tablet (Ativan) Take 1 Tablet by mouth every 6 hours as needed for Anxiety. Do not start before December 17, 2023. 120 Tablet 1 12/17/2023 Active Disposable Brief X-LargeIndications:O veractive bladder Attends X-Large Super Absorb Underwear 32 Each 2 12/05/2023 Active Ondansetron HCl 4 MG Oral TabletIndications:CO PD, group D, by GOLD 2017 classification ([facility]) Take 1 Tablet by mouth every 6 hours as needed for Nausea. 30 Tablet 5 12/06/2023 Active Hospital, Clinic, or Other Facility Administered [...] as of this encounter (statuses as of 12/08/2023) Active Problems Problem Noted Date Diagnosed Date [...] as of this encounter (statuses as of 12/08/2023) Resolved Problems Problem Noted Date Diagnosed Date [...] as of this encounter (statuses as of 12/08/2023) Immunizations Name Administration Dates Next Due H1N1 [...] Telephone Encounter - Yara Morris RN - 12/07/2023 1:35 PM EST See CM encounter from today. Patient considering hospice, spoke with Shahnaz for consultation only paras currently has home health in place with [facility]. Spoke with nurse Ervin from [facility]. * Telephone Encounter - Edison Santoyo OSA - 12/07/2023 10:49 AM EST Jackie with [facility] calling to see if the provider has a preference for which Home care agencyto use? documented in this encounter Plan of Treatment Upcoming Encounters Date Type Department Care Team (Late st Contact Info) Description 12/09/2023 2:00 PM EST Home Visit [facility] Coordination [facility] Integration [address] [place] [address] Kim Carrizales [facility] [address] [place] [address] 12/10/2023 3:20 PM EST Telemedicine Family Practice [facility] [address] [place] [address] Roger Alexandra MD [address] [place] [address] 01/31/2024 3:00 PM EDT Telemedicine Psychiatry, [address] [address] Hugo Alcantara MD [address], [place] [id number] Scheduled Procedures Name Priority Associated Diagnoses Date/Ti [...] 02/16/2022 LUNG CANCER SCREENING - USE SMARTSET [id number] Completed 2023, 03/16/2022, 08/24/2018, Additional history exists [...] Laura Gant Adult [facility] Professor Of Mechanical Engineering resentative (appointed verbally by patient or by statute hierarchy) Darlene Gilbert Adult [facility] Professor Of Mechanical Engineering resentative (appointed verbally by patient or by statute hierarchy) Care Teams Construction Sales Representative Relationship Specialty Start Date End Date Roger Alexandra MD [address] [place] [address] PCP - General Family Medicine 12/29/19 documented as of this encounter
--- OUTSIDE RECORDS SUMMARY | 2023-12-09 01:42 | External Medical Summary | Summary of Care ---
Author Name Unknown Organization [facility] Address [address] [place] [address] Phone [phone] Care Team Providers Care Dial Screw Assembler Name Role Phone Roger Alexandra MD Primary Care Provider [phone] Reason for Referral * Ancillary Services (Within 10 days (routine)) - Authorized Specialty Diagnoses / Procedures Referred By Anna hendrix Referred To Contact HOME CARE / Palliative Medicine Diagnoses COPD, group D, by GOLD 2017 classification (HCC) Roger Alexandra MD [address] [place] [address] Referral ID Status Reason Start Date Expiration Date Visits Requested Visits Authorized [id number] Authorized Ancillary Services Required 12/06/2023 999 999 Question Answer Referral Priority Within 10 days (routine) Where should this appointment be scheduled? External Reason for Visit * Reason Onset Date Comments Home Health 12/06/2023 Encounter Details Date Type Department Care Team (Late st Contact Info) Description 12/06/2023 Telephone Family Practice [facility] [address] [place] [address] Roger Alexandra MD [address] [place] [address] Home Health Allergies Active Allergy Reactions Criticality [...] MCG/ACT Inhalation Aerosol Powder Breath Activated (umeclidinium [place]) Inhale 1 Puff by mouth in the [...] 0 10/09/2023 Active Vitamin D3 1.25 MG (79860 UT) Oral Capsule Take 1 Capsule by [...] daily 30 Tablet 0 11/05/2023 Active Nystatin 543072 UNIT/GM External Powder (Nyamyc) apply to affected area twice a day 60 g 1 12/06/2023 Active Acetaminophen-Codein e 300-30 MG Oral TabletIndications:Ch ronic bilateral low back pain without sciatica Take 1 Tablet by mouth every 6 hours as needed for Pain, Moderate. 120 Tablet 0 12/06/2023 Active Furosemide 40 MG Oral Tablet (Lasix)Indications:C hronic diastolic CHF (congestive heart failure) ([facility]) Take 1 Tablet by mouth in the morning and 1 Tablet before bedtime. 60 Tablet 5 12/06/2023 Active Baclofen 10 MG Oral Tablet (Lioresal)Indication s:Chronic bilateral low back pain without sciatica Take 1 Tablet by mouth 3 times a day as needed for Muscle spasms. 90 Tablet 0 12/06/2023 Active LORazepam 0.5 MG [...] 2017 classification (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 06/01/2005 [...] Telephone Encounter - Aura Damico LPN - 12/06/2023 1:04 PM EST Admission/Start of Care: Aziza HAN, Calling from: [facility] Patient was Admitted to: [facility], for: Rehab from [facility] admission for UTI and COPD exacerbation from 11/26/23 to 12/05/23 Referral received for: Mcc, PT, and OT Planned start of care date:Yes, Date 12/06/23 Start of care completed on: 12/06/23 Report/Concerns of: See below Symptoms: See below Vitals: T 97.4 P 86 RR 18-20 BP 122/62 SP O2 96% with O2@ 5L Lung sounds - Wheezes Weight - unable to obtain Blood sugar - N/A Narrative: Legs are swollen, non-pitting edema bilaterally. Noted lung sounds are wheezing. Legs are also a little bit warm, tender and red. BLE are not leaking any fluid at this time. Afebrile. There are no open areas noted. Patient told Aziza that the [facility] provider mentioned she may be getting cellulitis. Patient also has script for Furosemide 40 mg on Wednesday, Wednesday and Fridays and Potassium 10 meq twice daily and Cefdinir 300 mg, twice daily and Doxycycline 100 mg every 12 hours x 10 days were all filled yesterday at the pharmacy. None of these meds were on patients discharge med list from [facility]. Lasix was ordered by [facility] provider and Potassium was ordered by PCP. Patient and family do not know why patient is ordered the above antibiotics. Aziza would like to know if patient is to take the above mentioned meds - please advise Patient also told Aziza that PCP recommended that she start Hospice and patient is interested in Hospice now either [facility] or [facility]. Patient reported 3 diarrhea episodes and nausea that started today Would like to know if patient can get an order for [facility] selected. Please advise. Next Nursing visit(s) on 12/09/23 They will call with any updates or additional concerns from the upcoming visit. Last Office Visit: 07/27/2023 Has patient been scheduled or seen in the office for a follow up visit: Yes- on12/10/23 Call back AZIZA with advice or orders at [phone] ([facility]) or [phone] ([facility]) Please fax orders to [phone] * Telephone Encounter - Tamra Fox OSA - 12/06/2023 12:57 PM EST Reason for patient's call: Aziza calling from [facility] is calling regarding pt Caller was transferred to Aura at the nurse line. documented in this encounter Plan of Treatment Upcoming Encounters Date Type Department Care Team (Late st Contact Info) Description 12/10/2023 3:20 PM EST Office Visit Family [employer] [address] [place] [address] Roger Alexandra MD [address] [facility] [address] 01/31/2024 3:00 PM EDT Telemedicine Psychiatry, [address] [address] Hugo Alcantara MD [address] [place] [address] Scheduled Procedures Name Priority Associated Diagnoses Date/Ti me COLONOSCOPY FLEXIBLE PROXIMA L DIAGNOSTIC Recall History of colonic polyps Scheduled Referrals Name Type Priority Associated Diagnoses Orde r Schedule HOSPICE REFERRAL OP Referral Within 10 days (routine) COPD, group D, by GOLD 2017 classification (HCC) Ordered: 12/06/2023 Health Maintenance Due Date Last Done Comments [...] 02/16/2022 LUNG CANCER SCREENING - USE SMARTSET [id number] Completed 2023, 03/16/2022, 08/24/2018, Additional history exists [...] Healthcare Agent Relationshi p Communication Laura Gant [facility] Grid Operator resentative (appointed verbally by patient or by statute hierarchy) Darlene Ruelaser [facility] Grid Operator resentative (appointed verbally by patient or by statute hierarchy) Care Teams Dial Screw Assembler Relationship Specialty Start Date End Date Roger Alexandra MD [address] [place] [address] PCP - General Family Medicine 12/29/19 documented as of this encounter
--- OUTSIDE RECORDS SUMMARY | 2023-12-09 01:42 | External Medical Summary | Summary of Care ---
Author Name Unknown Organization [facility] Address [address] [place] [address] Phone [phone] Care Team Providers Care Reforestation Worker Name Role Phone Roger Alexandra MD Primary Care Provider [phone] Reason for Referral * Ancillary Services (Within 10 days (routine)) - Authorized Specialty Diagnoses / Procedures Referred By Anna hendrix Referred To Contact HOME CARE / Palliative Medicine Diagnoses COPD, group D, by GOLD 2017 classification (HCC) Roger Alexandra MD [address] [place] [address] Referral ID Status Reason Start Date Expiration Date Visits Requested Visits Authorized [id number] Authorized Ancillary Services Required 12/06/2023 999 999 Question Answer Referral Priority Within 10 days (routine) Where should this appointment be scheduled? External Reason for Visit * Reason Onset Date Comments Home Health 12/06/2023 Encounter Details Date Type Department Care Team (Late st Contact Info) Description 12/06/2023 Telephone Family Practice [facility] [address] [place] [address] Roger Alexandra MD [address] [place] [address] Home Health Allergies Active Allergy Reactions Criticality Noted Date Comments Aspirin Unknown 12/12/2007 von Willebrand's disease Salicylates 03/01/2000 von Willebrand's disease documented as of this encounter (statuses as of 12/07/2023) Medications Medication Sig Dispensed Refills Start Date [...] MCG/ACT Inhalation Aerosol Powder Breath Activated (umeclidinium [place]) Inhale 1 Puff by mouth in the [...] 0 10/09/2023 Active Vitamin D3 1.25 MG (77459 UT) Oral Capsule Take 1 Capsule by [...] daily 30 Tablet 0 11/05/2023 Active Nystatin 526447 UNIT/GM External Powder (Nyamyc) apply to affected area twice a day 60 g 1 12/06/2023 Active Acetaminophen-Codein e 300-30 MG Oral TabletIndications:Ch ronic bilateral low back pain without sciatica Take 1 Tablet by mouth every 6 hours as needed for Pain, Moderate. 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 06/01/2005 [...] as of this encounter (statuses as of 12/07/2023) Immunizations Name Administration Dates Next Due H1N1 [...] encounter Miscellaneous Notes * Telephone Encounter - Talat Woodson OSA - 12/07/2023 8:35 AM EST Faxed referral to number provided * Telephone Encounter - EmiljojoCindyAuraTJ - 12/06/2023 1:04 PM EST Admission/Start of Care: Edis RN, Calling from: [facility] Patient was Admitted to: [facility], for: Rehab from [facility] admission for UTI and COPD exacerbation from 11/26/23 to 12/05/23 Referral received for: Alf, PT, and OT Planned start of care [...] are no open areas noted. Patient told Edis that the [facility] provider mentioned she may be getting cellulitis. Patient also has script for Furosemide 40 mg on Wednesday, Wednesday and Fridays and Potassium 10 meq twice daily and Cefdinir 300 mg, twice daily and Doxycycline 100 mg every 12 hours x 10 days were all filled yesterday at the pharmacy. None of these meds were on patients discharge med list from [facility]. Lasix was ordered by [facility] provider and Potassium was ordered by PCP. Patient and family do not know why patient is ordered the above antibiotics. Edis would like to know if patient is to take the above mentioned meds - please advise Patient also told Edis that PCP recommended that she start Hospice and patient is interested in Hospice now either [facility] or [facility]. Patient reported 3 diarrhea episodes and nausea [...] follow up visit: Yes- on12/10/23 Call back EDIS with advice or orders at [phone] ([facility]) or [phone] ([facility]) Please fax orders to [phone] * Telephone Encounter - Tamra Fox OSA - 12/06/2023 12:57 PM EST Reason for patient's call: Edis calling from [facility] is calling regarding pt Caller was transferred to Aura at the nurse line. documented in this encounter Plan of Treatment Upcoming Encounters Date Type Department Care Team (Late st Contact Info) Description 12/10/2023 3:20 PM EST Office Visit [facility] [address] [place] [address] Roger Alexandra MD [address] [place] [address] 01/31/2024 3:00 PM EDT Telemedicine Psychiatry, [address] [address] Hugo Alcantara MD [address] [place] [address] Scheduled Procedures Name Priority Associated Diagnoses Date/Ti me COLONOSCOPY FLEXIBLE PROXIMA L DIAGNOSTIC Recall History of colonic polyps Scheduled Referrals Name Type Priority Associated Diagnoses Orde r Schedule HOSPICE REFERRAL OP Referral Within 10 days (routine) COPD, group D, by GOLD 2017 classification ([facility]) Ordered: 12/06/2023 Health Maintenance Due Date Last [...] 02/16/2022 LUNG CANCER SCREENING - USE SMARTSET [id number] Completed 2023, 03/16/2022, 08/24/2018, Additional history exists [...] Relationship Healthcare Agent Relationshi p Communication Laura Starke Adult [facility] Diabetes Territory Manager resentative (appointed verbally by patient or by statute hierarchy) Darlene Gilbert Adult [facility] Diabetes Territory Manager resentative (appointed verbally by patient or by statute hierarchy) Care Teams Reforestation Worker Relationship Specialty Start Date End Date Roger Alexandra MD [address] [place] [address] PCP - General Family Medicine 12/29/19 documented as of this encounter
--- OUTSIDE RECORDS SUMMARY | 2023-12-09 01:42 | External Medical Summary | Summary of Care ---
Author Name Unknown Organization [facility] Address [address] [place] [facility] [place] [address] Phone [phone] Care Team Providers Care Fashion Patternmaker Name Role Phone Roger Alexandra MD Primary Care Provider [phone] Reason for Visit * Reason Onset Date Comments Advice 12/07/2023 Home Health Prov ider Encounter Details Date Type Department Care Team (Late st Contact Info) Description 12/07/2023 Telephone Family Practice [facility] [address] [place] [address] Roger Alexandra MD [address] [place] [address] Advice (Home Health Provider) Allergies Active Allergy [...] MCG/ACT Inhalation Aerosol Powder Breath Activated (umeclidinium [place]) Inhale 1 Puff by mouth in the [...] 0 10/09/2023 Active Vitamin D3 1.25 MG (35126 UT) Oral Capsule Take 1 Capsule by [...] daily 30 Tablet 0 11/05/2023 Active Nystatin 003510 UNIT/GM External Powder (Nyamyc) apply to affected [...] 2017 classification ([facility]) Take 1 Tablet by mouth [...] defect 02/04/2006 009 Atrial septal aneurysm 02/04/200612/21 care home current use of ant icoagulant therapy [...] currently has home health in place with [facility]. Spoke with nurse Ervin from [facility]. * Telephone Encounter - Edison Santoyo OSA - 12/07/2023 10:49 AM EST Jackie with [facility] calling to see if the provider has a preference for which Home care agencyto use? documented in this encounter Plan of Treatment Upcoming Encounters Date Type Department Care Team (Late st Contact Info) Description 12/09/2023 2:00 PM EST Home Visit Care Coordination and Integration [address] [place] [address] Kim Carrizales [facility] Belt And Link Assembly Supervisor [address] [place] [address] 12/10/2023 3:20 PM EST Telemedicine Family Practice [facility] [address] [place] [address] Roger Alexandra MD [address] [facility] [place] [address] 01/31/2024 3:00 PM EDT Telemedicine Psychiatry, [address] [address] Hugo Alcantara MD [address] [place], [place] [id number] Scheduled Procedures Name Priority Associated Diagnoses Date/Ti [...] 02/16/2022 LUNG CANCER SCREENING - USE SMARTSET [id number] Completed 2023, 03/16/2022, 08/24/2018, Additional history exists [...] Agent Relationshi p Communication Laura Gant Adult [facility] Health Laborer [place] resentative (appointed verbally by patient or by statute hierarchy) Darlene Gilbert Adult [facility] Health Laborer [place] resentative (appointed verbally by patient or by statute hierarchy) Care Teams Fashion Patternmaker Relationship Specialty Start Date End Date Roger Alexandra MD [address] [place] [address] PCP - General Family Medicine 12/29/19 documented as of this encounter
--- OUTSIDE RECORDS SUMMARY | 2023-12-09 01:42 | External Medical Summary | Summary of Care ---
Author Name Unknown Organization [facility] Address [address] [place] [address] Phone [phone] Care Team Providers Care Lead Security Officer Name Role Phone Roger Alexandra MD Primary Care Provider [phone] Reason for Visit * Reason Onset Date Comments Medication Refill 12/03/2023 Encounter Details Date Type Department Care Team (Late st Contact Info) Description 12/03/2023 Refill Psychiatry, [facility] [address] [place] [address] Hugo Alcantara MD [address] [place] [address] Allergies Active Allergy Reactions Criticality Noted Date Comments Aspirin Unknown 12/12/2007 von Willebrand's disease Salicylates 03/01/2000 von Willebrand's disease documented as of this encounter (statuses as of 12/06/2023) Medications Medication Sig Dispensed Refills Start Date End Date Status oxygen IN GASIndications:Reference Services Head 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 respiratory failure (HCC),COPD, group D, [...] MCG/ACT Inhalation Aerosol Powder Breath Activated (umeclidinium [place]) Inhale 1 Puff by mouth in the [...] 0 10/09/2023 Active Vitamin D3 1.25 MG (76440 UT) Oral Capsule Take 1 Capsule by [...] daily 30 Tablet 0 11/05/2023 Active Nystatin 296915 UNIT/GM External Powder (Nyamyc) apply to affected [...] 17, 2023. 120 Tablet 1 12/17/2023 Active Mirtazapine 30 MG Oral Tablet (Remeron) take 1 tablet by mouth at bedtime 30 Tablet 0 11/05/2023 Discontinu ed(Refill) Hospital, Clinic, or Other Facility [...] Telephone Encounter - Hugo Alcantara MD - 12/06/2023 4:01 PM EST Signed Prescriptions: Disp Refills Mirtazapine 30 MG Oral Tablet (Remeron) 30 Tab*0 Sig: Take 1 Tablet by mouth at bedtime. Authorizing Provider: HUGO ALCANTARA * Telephone Encounter - Denise Garcia OSA - 12/06/2023 1:00 PM ESTPending Prescriptions: Disp Refills Mirtazapine 30 MG Oral Tablet (Remeron) 30 Tab*0 Sig: Take 1 Tablet by mouth at bedtime. * Telephone Encounter - Denise Garcia OSA - 12/06/2023 1:00 PM EST Refill request from patient (MyG) for Mirtazapine 30mg. Medication last filled on 11/05/23 with 0 refills. Patient last seen on 11/29/23 with return appointment scheduled for 01/31/24. Patient had 0 cancelled appointments and 0 NO SHOW appointments. * Telephone Encounter - Ewa Chu [facility] - 12/06/2023 12:40 PM ESTPending Prescriptions: Disp Refills Mirtazapine 30 MG Oral Tablet (Remeron) 30 Tab*0 Sig: Take 1 Tablet by mouth at bedtime. * Telephone Encounter - Ewa Chu [facility] - 12/06/2023 12:37 PM EST Mirtazapine usually ordered by psychiatry Med filled in September for [address] [facility] provider then again in October Will forward to psychiatry for refill Thank You, Ewa Chu [facility] Clinical Pharmacist [facility] ([facility] (formerly Telepharmacy) [phone] 12/06/2023, 12:39 PM documented in this encounter Plan of Treatment Upcoming Encounters Date Type Department Care Team (Late st Contact Info) Description 12/10/2023 3:20 PM EST Office Visit Family [facility] [address] [place] [address] Roger Alexandra MD [address] [facility] [place] [address] 01/31/2024 3:00 PM EDT Telemedicine Psychiatry, [address] [address] Hugo Alcantara MD [address] [place] [address] Scheduled Procedures Name Priority Associated [...] 02/16/2022 LUNG CANCER SCREENING - USE SMARTSET 26254 Completed 2023, 03/16/2022, 08/24/2018, Additional history exists [...] Agent Relationshi p Communication Laura Gant Adult [facility] Athlete Marketing Agent resentative (appointed verbally by patient or by statute hierarchy) Darlene Gilbert Adult [facility] Athlete Marketing Agent resentative (appointed verbally by patient or by statute hierarchy) Care Teams Lead Security Officer Relationship Specialty Start Date End Date Roger Alexandra MD [address] [place] [address] PCP - General Family Medicine 12/29/19 documented as of this encounter
--- OUTSIDE RECORDS SUMMARY | 2023-12-09 01:42 | External Medical Summary | Summary of Care ---
Author Name Unknown Organization [facility] Address [address] [place] [address] Phone [phone] Care Team Providers Care Rod Mill Operator Name Role Phone Roger Alexandra MD Primary Care Provider [phone] [phone] Reason for Visit * Reason Onset Date Comments Medication Refill 12/03/2023 Encounter Details Date Type Department Care Team (Late st Contact Info) Description 12/03/2023 Refill Psychiatry, [facility] [address] [place] [address] Hugo Alcantara MD [address] [place] [address] Allergies Active Allergy Reactions Criticality Noted Date Comments Aspirin Unknown 12/12/2007 von Willebrand's disease Salicylates 03/01/2000 von Willebrand's disease documented as of this encounter (statuses as of 12/06/2023) Medications Medication Sig Dispensed Refills Start Date End Date Status oxygen IN GASIndications: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 120 Tablet 1 12/17/2023 Active LORazepam 0.5 MG Oral Tablet (Ativan) Take 1 Tablet by mouth every 6 hours as needed for Anxiety. Do not start before October 04, 2023. 120 Tablet 1 10/04/2023 Discontinu ed(Refill) Hospital, Clinic, or Other Facility Administered Medication Ordered Dose Route Frequency Start Date End Date Status Albuterol Sulfate (Proventil) (2.5 MG/3ML) 0.083% inhalation solution 2.5 mgIndications:COPD, group D, by GOLD 2017 classification ([facility]) 2.5 mg NEBULIZER PRN 03/03/2023 03/02/2024 Acti ve Albuterol Sulfate (Proventil) (5 MG/ML) 0.5% *conc* inhalation solution 2.5 mgIndications:COPD, group D, by GOLD 2017 classification ([facility]) 2.5 mg NEBULIZER PRN 03/03/2023 03/02/2024 Acti [...] Encounter - Hugo Alcantara MD - 12/06/2023 9:54 AM EST Signed Prescriptions: Disp Refills LORazepam 0.5 MG Oral Tablet (Ativan) 120 Ta*1 Sig: Take 1 Tablet by mouth every 6 hours as needed for Anxiety. Do not start before December 17, 2023.Authorizing Provider: HUGO ALCANTARA * Telephone Encounter - Denise Garcia OSA - 12/06/2023 9:43 AM ESTPending Prescriptions: Disp Refills LORazepam 0.5 MG Oral Tablet (Ativan) 120 Ta*1 Sig: Take 1 Tablet by mouth every 6 hours as needed for Anxiety. * Telephone Encounter - Denise Garcia OSA - 12/06/2023 9:43 AM EST Refill request from patient (PamelaG) for Ativan 0.5mg. Medication last filled on 10/04/23 with 1 refills. Patient last seen on 11/29/23 with return appointment scheduled for 01/31/24. Patient had 0 cancelled appointments and 0 NO SHOW appointments. documented in this encounter Plan of Treatment Upcoming Encounters Date Type Department Care Team (Late st Contact Info) Description 12/10/2023 3:20 PM EST Office Visit Family [facility] [address] [facility] [place] [address] Roger Alexandra MD [address] [place] [address] 01/31/2024 3:00 PM EDT Telemedicine Psychiatry, [address] [place] [address] Hugo Alcantara MD [address] [place] [address] Scheduled Procedures Name Priority Associated [...] 02/16/2022 LUNG CANCER SCREENING - USE SMARTSET 63030 Completed 2023, 03/16/2022, 08/24/2018, Additional history exists [...] Agent Relationshi p Communication Laura [facility] [place] Attendant resentative (appointed verbally by patient or by statute hierarchy) Darlene Gilbert [facility] [place] Attendant resentative (appointed verbally by patient or by statute hierarchy) Care Teams Rod Mill Operator Relationship Specialty Start Date End Date Roger Alexandra MD [address] [place] [address] PCP - General Family Medicine 12/29/19 documented as of this encounter
--- OUTSIDE RECORDS SUMMARY | 2023-12-09 01:43 | External Medical Summary ---
Author Name Unknown Address Unknown Organization [facility] [place] [address] Laboratory Report Ordering Provider Test Date Status SUJATHA CHRISTENSEN 12/04/2023 07:18:57 Final Observation Date Value Abnormality Reference (Units ) Status WBC, Total 12/04/2023 07:18:57 8.43 4.00-10.8 0 (K/uL) Final RBC 12/04/2023 07:18:57 2.92 3.85-5.15 (M/uL) Final Hemoglobin 12/04/2023 07:18:57 9.2 Below low normal 12 .0-15.3 (g/dL) Final HCT 12/04/2023 07:18:57 30.1 Below low normal 36. 0-45.2 (%) Final MCV 12/04/2023 07:18:57 103.1 81.5-97.5 (fL) Final MCH 12/04/2023 07:18:57 31.5 27.0-34.0 (pg) Final MCHC 12/04/2023 07:18:57 30.6 32.0-36.0 (g/dL) Final RDW 12/04/2023 07:18:57 27.1 11.5-15.5 (%) Final Platelets 12/04/2023 07:18:57 482 Above high normal 14 0-400 (K/uL) Final MPV 12/04/2023 07:18:57 8.5 6.6-11.1 ( fL) Final Performing Location [facility] [place] [place] [address]
--- OUTSIDE RECORDS SUMMARY | 2023-12-09 01:43 | External Medical Summary ---
Author Name Unknown Address Unknown Organization [facility] [place] - [address] [place] [address] Laboratory Report Ordering Provider Test Date Status SUJATHA CHRISTENSEN 12/04/2023 07:18:57 Final Observation Date Value Abnormality Reference (Units ) Status BUN 12/04/2023 07:18:57 21 Above high normal 6-20 (mg/dL) Final Creatinine 12/04/2023 07:18:57 0.9 0.5-1.0 (mg/dL) Final Glomerular filtration rate/1.73 sq M.predicted [Volume Rate/Area] in Serum, Plasma or Blood by Creatinine-based formula (CKD-EPI) 12/04/2023 07:18:57 68 >=60 (mL/min) Final eGFR is calculated based on the CKD-EPI 2020 equation SODIUM 12/04/2023 07:18:57 143 135-146 (m mol/L) Final Potassium 12/04/2023 07:18:57 4.6 3.5-5.1 (m mol/L) Final Cl 12/04/2023 07:18:57 102 98-107 (mm ol/L) Final CO2 12/04/2023 07:18:57 29 22-32 (mmo l/L) Final Anion gap 12/04/2023 07:18:57 12 7-15 (mmol /L) Final Glucose 12/04/2023 07:18:57 121 Above high normal 70 -120 (mg/dL) Final Calcium 12/04/2023 07:18:57 9.1 8.4-10.2 ( mg/dL) Final Performing Location [facility] [place] [address] [place] [address]
--- OUTSIDE RECORDS SUMMARY | 2023-12-09 01:43 | External Medical Summary ---
Author Name Unknown Address Unknown Organization [facility] [place] [address] - [address] [place] [address] Laboratory Report Ordering Provider Test Date Status SINA ORTEGA 12/05/2023 07:05:59 Final Observation Date Value Abnormality Reference (Units ) Status BUN 12/05/2023 07:05:59 19 6-20 (mg/dL) Final Creatinine 12/05/2023 07:05:59 1.0 0.5-1.0 (mg/dL) Final Glomerular filtration rate/1.73 sq M.predicted [Volume Rate/Area] in Serum, Plasma or Blood by Creatinine-based formula (CKD-EPI) 12/05/2023 07:05:59 61 >=60 (mL/min) Final eGFR is calculated based on the CKD-EPI 2020 equation SODIUM 12/05/2023 07:05:59 142 135-146 (m mol/L) Final Potassium 12/05/2023 07:05:59 4.4 3.5-5.1 (m mol/L) Final Cl 12/05/2023 07:05:59 100 98-107 (mm ol/L) Final CO2 12/05/2023 07:05:59 33 Above high normal 22 -32 (mmol/L) Final Anion gap 12/05/2023 07:05:59 9 7-15 (mmol /L) Final Glucose 12/05/2023 07:05:59 167 Above high normal 70 -120 (mg/dL) Final Calcium 12/05/2023 07:05:59 9.1 8.4-10.2 ( mg/dL) Final Performing Location [facility] [address] [place] [address]
--- OUTSIDE RECORDS SUMMARY | 2023-12-09 01:43 | External Medical Summary ---
Author Name Unknown Address Unknown Organization [facility] [address] - [address] [place] [address] Laboratory Report Ordering Provider Test Date Status SUJATHA CHRISTENSEN 11/27/2023 05:20:00 Final Observation Date Value Abnormality Reference (Units ) Status BUN 11/27/2023 05:20:00 19 6-20 (mg/dL) Final Creatinine 11/27/2023 05:20:00 1.1 Above high normal 0.5-1.0 (mg/dL) Final Glomerular filtration rate/1.73 sq M.predicted [Volume Rate/Area] in Serum, Plasma or Blood by Creatinine-based formula (CKD-EPI) 11/27/2023 05:20:00 58 Below low normal >=60 (mL/min) Final eGFR is calculated based on the CKD-EPI 2020 equation SODIUM 11/27/2023 05:20:00 139 135-146 (m mol/L) Final Potassium 11/27/2023 05:20:00 4.6 3.5-5.1 (m mol/L) Final Cl 11/27/2023 05:20:00 102 98-107 (mm ol/L) Final CO2 11/27/2023 05:20:00 29 22-32 (mmo l/L) Final Anion gap 11/27/2023 05:20:00 8 7-15 (mmol /L) Final Glucose 11/27/2023 05:20:00 89 70-120 (mg /dL) Final Calcium 11/27/2023 05:20:00 8.7 8.4-10.2 ( mg/dL) Final Performing Location [facility] [address] [place] [address]
--- OUTSIDE RECORDS SUMMARY | 2023-12-09 01:43 | External Medical Summary ---
Author Name Unknown Address Unknown Organization K01:[facility] - [address] [place] [address] Laboratory Report Ordering Provider Test Date Status FERMINSOLARES 11/30/2023 06:00:00 Final Observation Date Value Abnormality Reference (Units ) Status Uric Acid 11/30/2023 06:00:00 6.6 Above high normal 2. 4-5.7 (mg/dL) Final Performing Location [facility] - [address] [facility] [address]
--- OUTSIDE RECORDS SUMMARY | 2023-12-09 01:43 | External Medical Summary | Summary of Care ---
Author Name Unknown Organization [facility] Address [address] [place] [address] Phone [phone] Care Team Providers Care It Software Engineer Name Role Phone Roger Alexandra MD Primary Care Provider [phone] Encounter Details Date Type Department Care Team (Latest Contact Info) Description 11/29/2023 3:30 PM EST Telemedicine Psychiatry, [address] [address] Hugo Alcantara MD [address] [place] [address] Major neurocognitive disorder, due to vascular disease, without behavioral disturbance, mild (HCC)*; MDD (major depressive disorder), recurrent episode, moderate (HCC) Allergies Active Allergy Reactions Criticality Noted Date Comments Aspirin Unknown 12/12/2007 von Willebrand's disease Salicylates 03/01/2000 von Willebrand's disease documented as of this encounter (statuses as of 12/01/2023) Medications Medication Sig Dispensed Refills Start Date [...] J44.9 90 mL 3 03/18/2023 Active Nystatin 873112 UNIT/GM External Powder (Nyamyc) apply to affected [...] MCG/ACT Inhalation Aerosol Powder Breath Activated (umeclidinium [place]) Inhale 1 Puff by mouth in the [...] 0 10/09/2023 Active Vitamin D3 1.25 MG (51965 UT) Oral Capsule Take 1 Capsule by [...] as of this encounter (statuses as of 12/01/2023) Active Problems Problem Noted Date Diagnosed Date [...] as of this encounter (statuses as of 12/01/2023) Resolved Problems Problem Noted Date Diagnosed Date [...] defect 02/04/2006 009 Atrial septal aneurysm 02/04/200612/21 shelter current use of ant icoagulant therapy 06/01/2005 [...] as of this encounter (statuses as of 12/01/2023) Immunizations Name Administration Dates Next Due H1N1 [...] Progress Notes * Hugo Alcantara MD - 11/29/2023 3:31 PM EST After connecting through [facility] [employer], patient was verified with two unique identifiers. [...] management INTERVAL HISTORY: [facility], which she says isnot going too well. Has UTI. She lost her caregivers in Nov d/t no longer qualifying for program. She states she's had no help. She wasn't getting out of bed. Sons would help intermittently but treat her poorly. Continues to have difficulty with thinking. Doesn't feel like Ativan "is doing anything". Sleep continues to be an issue. Discuss various changes, which she is opposed to. OBJECTIVE DATA: ROS EXAM: negative except as [...] Breath. Taking once daily) 540 mL 12 Vitron-C 65-125 MG Oral Tablet (Iron-Vitamin C 65-125 mg per tab) Take 2 Tablets by mouth in the morning. 60 Tablet 11 Ipratropium-Albuterol 0.5-2.5 (3) MG/3ML Inhalation Solution (Duoneb) Inhale 3 ML by mouth every 6 hours as needed for wheezing. J44.9 90 mL 3 Nystatin 261989 UNIT/GM External Powder ([facility]) apply to affected area twice a day 60 g 1 Isosorbide Mononitrate ER 30 MG Oral Tablet Extended Release 24 Hour (Imdur) take 1 tablet by mouthonce daily 30 Tablet 5 ProAir HFA 108 (90 Base) MCG/ACT Inhalation Aerosol Solution Inhale 2 Puffs by mouth in the morningand 2 Puffs at noon and 2 Puffs in the evening and 2 Puffs before bedtime. 18 g 5 Solifenacin Succinate 10 MG Oral Tablet [...] 8 hours as needed for Pain, Severe. Incruse Ellipta 62.5 MCG/ACT Inhalation Aerosol Powder Breath Activated (umeclidinium [place]) Inhale 1 Puff by mouth in the morning. Probiotic & Acidophilus Ex St Oral Capsule Take 2 Capsules by mouth every evening. Apixaban 5 MG Oral Tablet (Eliquis) Take 1 Tablet by mouth in the morning and 1 Tablet before bedtime. LORazepam 0.5 MG Oral Tablet (Ativan) Take 1 Tablet by mouth every 6 hours as needed for Anxiety. Do not start before October 04, 2023. 120 Tablet 1 Furosemide 40 MG Oral Tablet (Lasix) take 1 tablet by mouth twice a day 60 Tablet 0 Ramelteon 8 MG Oral Tablet (Rozerem) Take 1 Tablet by mouth at bedtime. 30 Tablet 0 Vitamin D3 1.25 MG (35984 UT) Oral Capsule Take 1 Capsule by mouth once a week. 4 Capsule 0 Baclofen 10 MG Oral Tablet (Lioresal) take 1 tablet by mouth three times a day if needed for musclespasm 90 Tablet 0 Metoprolol Succinate ER 25 MG Oral Tablet Extended Release 24 Hour (toPROL XL) take 1 tablet by mouth every morning 30 Tablet 0 Montelukast Sodium 10 MG Oral Tablet (Singulair) take 1 tablet by mouth at bedtime 30 Tablet 0 Donepezil HCl 5 MG Oral Tablet (Aricept) take 1 tablet by mouth every morning TAKE WITH THE LARGESTMEAL OF THE DAY 30 Tablet 0 Omeprazole 20 MG Oral Capsule Delayed Release (PriLOSEC) take 1 capsule by mouth every morning thenBEFORE BEDTIME 60 Capsule 0 Potassium Chloride ER 10 MEQ Oral Capsule Extended Release take 1 capsule by mouth every morning then BEFORE BEDTIME 60 Capsule 0 Sertraline HCl 50 MG Oral Tablet (Zoloft) take 1 tablet by mouth once daily 30 Tablet 0 Mirtazapine 30 MG Oral Tablet (Remeron) take 1 tablet by mouth at bedtime 30 Tablet 0 Current Facility-Administered Medications Medication Dose [...] to Klonopin from Ativan was not helpful. Buspar dc'ed d/t lack of effectiveness. Struggling with ongoing anxiety sx, depressive sx, cognitive impairment, demoralization and grief. Recent hospitalization have caused increase stress/exacerbation of sx DIAGNOSIS: Major depressive disorder recurrent episode moderate Generalized Anxiety Disorder PTSD Bereavement Major vascular neurocognitive d/o TREATMENT PLAN: -- cont Remeron 45mg nightly -- cont Ativan 0.5mg QID; unable to increase further d/t multiple risks -- recommend therapy -- ongoing neurology care [...] Care Team (Late st Contact Info) Description 01/31/2024 3:00 PM EDT Telemedicine Psychiatry, [address] [address] Hugo Alcantara MD [address] [place] [address] Scheduled Procedures Name Priority Associated [...] 02/16/2022 LUNG CANCER SCREENING - USE SMARTSET 30273 Completed 2023, 03/16/2022, 08/24/2018, Additional history exists [...] to vascular disease, without behavioral disturbance, mild (HCC)- Primary MDD (major depressive disorder), recurrent episode, moderate (HCC) Major depressive disorder, recurrent episode, moderate documented in this encounter Advance Directives Healthcare Agents on File Name Relationship Healthcare Agent Relationshi p Communication Lauradelvin Gant [facility] Art Gallery Director resentative (appointed verbally by patient or by statute hierarchy) Darlene Ruelaser Adult [facility] Art Gallery Director resentative (appointed verbally by patient or by statute hierarchy) Care Teams It Software Engineer Relationship Specialty Start Date End Date Roger Alexandra MD [address] [place] [address] PCP - General Family Medicine 12/29/19 documented as of this encounter
--- OUTSIDE RECORDS SUMMARY | 2023-12-09 01:43 | External Medical Summary | Summary of Care ---
Author Name Unknown Organization [facility] Address [address] [address] Phone [phone] Care Team Providers Care Coil Winder Hand Name Role Phone Jeevan Mclean MD Primary Care Provider [phone] Reason for Visit * Reason Onset Date Comments Medication Refill 12/04/2023 Encounter Details Date Type Department Care Team (Late st Contact Info) Description 12/04/[address] 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 30 Tablet 0 10/09/2023 Active Vitamin D3 1.25 MG (14814 UT) Oral Capsule Take 1 Capsule by mouth once a week. 4 Capsule 0 10/09/2023 Active Baclofen 10 MG Oral Tablet (Lioresal)Indicatio [...] at bedtime 30 Tablet 0 11/05/2023 Active Disposable Brief X-LargeIndications: Overactive bladder Attends X-Large Super Absorb Underwear 32 Each 2 12/05/2023 Active Disposable Brief X-LargeIndications: Overactive bladder Attends X-Large Super Absorb Underwear 32 Each 2 09/08/2022 4 Discontinu ed(Refill) Hospital, Clinic, or Other Facility Administered Medication Ordered Dose Route Frequency Start Date End Date Status Albuterol Sulfate (Proventil) (2.5 MG/3ML) 0.083% inhalation solution 2.5 mgIndications:COPD, group D, by GOLD 2017 classification ([facility]) 2.5 mg NEBULIZER PRN 03/03/2023 03/02/2024 Acti ve Albuterol Sulfate (Proventil) (5 MG/ML) 0.5% *conc* inhalation solution 2.5 mgIndications:COPD, group D, by GOLD 2017 classification ([facility]) 2.5 mg NEBULIZER PRN 03/03/2023 03/02/2024 Acti ve documented as of this encounter (statuses as of 12/05/2023) Active Problems Problem Noted Date Diagnosed Date [...] as of this encounter (statuses as of 12/05/2023) Resolved Problems Problem Noted Date Diagnosed Date [...] 02/04/2006 009 Atrial septal aneurysm 02/04/200612/21 terminal worker current use of ant icoagulant therapy 06/01/2005 [...] as of this encounter (statuses as of 12/05/2023) Immunizations Name Administration Dates Next Due H1N1 [...] Telephone Encounter - Jeevan Mclean MD - 12/05/2023 1:18 PM ESTSigned Prescriptions: Disp Refills Disposable Brief X-Large 32 Each2 Sig: Attends X-Large Super Absorb Underwear Authorizing Provider: JEEVAN MCLEAN * Telephone Encounter - Deepthi M[facility] - 12/04/2023 11:28 PM ESTPending Prescriptions: Disp Refills Disposable Brief X-Large 32 Each2 Sig: Attends X-Large Super Absorb Underwear * Telephone Encounter - Deepthi Maki [facility] - 12/04/2023 11:27 PM EST Refill pharmacists currently not authorized to approve refills for this class of medication per refill protocol. Please approve if appropriate. Pending Prescriptions: Disp Refills Disposable Brief X-Large 32 Each2 Sig: Attends X-Large Super Absorb Underwear 07/27/2023 (in office), 12/16/2022 (telemedicine) 12/10/2023 If no future appointments scheduled, and last appointment is greater than a year ago, please schedule patient for a follow-up appointment Last date the medication was ordered: 09/08/22 Pharmacy: [id number] Is this request for a controlled substance? no Urine Drug Screen:No results found. However, due to the size of the patient record, not all encounters were searched. Please check Results Review for a complete set of results. Patient Phone Numbers Labs: Lab Results Component Value Date/Time CREAT 0.9 12/04/2023 07:18 AM CREAT 0.77 11/21/2021 12:00 AM CREAT 0.7 10/17/2020 03:40 PM POTASSIUM 4.6 12/04/2023 07:18 AM POTASSIUM 2.8 (A) 11/21/2021 12:00 AM [...] Team (Late st Contact Info) Description 12/06/2023 2:30 PM EST Home Visit [facility] [address] [place] [address] [facility] Technical Information Specialist [address] [place] [address] 12/10/2023 3:20 PM EST Office Visit Family Practice [facility] [address] [place] [address] Jeevan Mclean MD [address] [place] [address] 01/31/2024 3:00 PM EDT Telemedicine Psychiatry, [address] [place] [address] Hugo Alcantara MD [address] [place] [address] Scheduled Procedures Name Priority Associated Diagnoses Date/Ti [...] 02/16/2022 LUNG CANCER SCREENING - USE SMARTSET 12500 Completed 2023, 03/16/2022, 08/24/2018, Additional history exists GARDASIL-HPV IMMUNIZATION SERIES Aged Out No longer eligible based on patient's age to complete this topic MENINGOCOCCAL (MENACTRA/MENVEO) Aged Out No longer eligible based on patient's age to complete this topic documented as of this encounter Medical Devices Not on filedocumented as of this encounter Visit Diagnoses Diagnosis Overactive bladder Hypertonicity of bladder documented in this encounter Advance Directives Healthcare Agents on File Name Relationship Healthcare Agent Relationshi p Communication [facility] Rep resentative (appointed verbally by patient or by statute hierarchy) Darlene Gilbert Adult [facility] Log Snaker resentative (appointed verbally by patient or by statute hierarchy) Care Teams Coil Winder Hand Relationship Specialty Start Date End Date Jeevan Mclean MD [address] [place] [id number] PCP - General Family Medicine 12/29/19 documented as of this encounter
--- OUTSIDE RECORDS SUMMARY | 2023-12-09 01:43 | External Medical Summary ---
Author Name Unknown Address Unknown Organization [facility] [address] [place] [id number] Laboratory Report Ordering Provider Test Date Status SUJATHA CHRISTENSEN 11/27/2023 05:20:00 Final Observation Date Value Abnormality Reference (Units ) Status WBC, Total 11/27/2023 05:20:00 8.68 4.00-10.8 0 (K/uL) Final RBC 11/27/2023 05:20:00 3.23 3.85-5.15 (M/uL) Final Hemoglobin 11/27/2023 05:20:00 10.0 Below low normal 12 .0-15.3 (g/dL) Final HCT 11/27/2023 05:20:00 32.1 Below low normal 36. 0-45.2 (%) Final MCV 11/27/2023 05:20:00 99.4 81.5-97.5 (fL) Final MCH 11/27/2023 05:20:00 31.0 27.0-34.0 (pg) Final MCHC 11/27/2023 05:20:00 31.2 32.0-36.0 (g/dL) Final RDW 11/27/2023 05:20:00 27.2 11.5-15.5 (%) Final Platelets 11/27/2023 05:20:00 378 140-400 (K /uL) Final MPV 11/27/2023 05:20:00 8.6 6.6-11.1 ( fL) Final Performing Location [facility] [address] [place] [address]
--- OUTSIDE RECORDS SUMMARY | 2023-12-09 01:43 | External Medical Summary ---
Author Name Unknown Address Unknown Organization [facility] [address] [place] [id number] Laboratory Report Ordering Provider Test Date Status SUJATHA CHRISTENSEN 11/30/2023 06:00:00 Final Observation Date Value Abnormality Reference (Units ) Status BUN 11/30/2023 06:00:00 16 6-20 (mg/dL) Final Creatinine 11/30/2023 06:00:00 0.9 0.5-1.0 (mg/dL) Final Glomerular filtration rate/1.73 sq M.predicted [Volume Rate/Area] in Serum, Plasma or Blood by Creatinine-based formula (CKD-EPI) 11/30/2023 06:00:00 72 >=60 (mL/min) Final eGFR is calculated based on the CKD-EPI 2020 equation SODIUM 11/30/2023 06:00:00 142 135-146 (m mol/L) Final Potassium 11/30/2023 06:00:00 4.0 3.5-5.1 (m mol/L) Final Cl 11/30/2023 06:00:00 101 98-107 (mm ol/L) Final CO2 11/30/2023 06:00:00 33 Above high normal 22 -32 (mmol/L) Final Anion gap 11/30/2023 06:00:00 8 7-15 (mmol /L) Final Glucose 11/30/2023 06:00:00 99 70-120 (mg /dL) Final Calcium 11/30/2023 06:00:00 9.0 8.4-10.2 ( mg/dL) Final Performing Location [facility] [address] [place] [address]
[2023-12-09 06:05] LABS: Hematocrit (blood only) 28.6 % (37.0-47.0); Hemoglobin 8.7 g/dl (12.0-16.0); Immature Granulocytes # (auto) 0.03 K/uL (0.01-0.20); Immature Granulocytes % (auto) 0.8 %; Lymphocytes # (auto) 0.57 K/uL (1.20-3.40); Lymphocytes % (auto) 15.5 %; Mean Corpuscular Hemoglobin 30.4 pg (25.0-34.0); Mean Corpuscular Hgb Conc 30.4 g/dL (32.0-36.0); Mean Platelet Volume 8.7 fL (9.4-12.4); Monocytes % (auto) 2.7 %; Neutrophils # (auto) 2.98 K/uL (1.40-6.50); Platelet Count 312 K/uL (130-400); RDW Coefficient of Variation 23.7 % (11.5-14.5); RDW Standard Deviation 86.4 fL (36.4-46.3); Red Blood Count 2.86 M/uL (4.20-5.40); White Blood Count 3.68 K/ul (4.8-10.8)
[2023-12-09 06:15] LABS: HCO3 VBG 32 mmol/L; Oxygen Saturation VBG < 60.0 %; PCO2 VBG 72 mmHg (38-50); PO2 VBG 25 mmHg; pH VBG 7.26 (7.36-7.41)
[2023-12-09 06:27] LABS: BUN Creatinine Ratio 14.7 (10-20); Calcium 8.3 mg/dl (8.6-10.3); Creatinine Clr Calc Pharmacy 104.6 ml/min; Est GFR (African American) 98.3 ml/min; Est GFR (Non-African American) 84.8 ml/min; Magnesium 2.2 mg/dl (1.7-2.4); Phosphorus 3.8 mg/dl (2.5-4.9); Potassium 4.1 mmol/L (3.5-5.1)
[2023-12-09 06:36] LABS: Anisocytosis Present
[2023-12-09] MEDS: ALBUT/IPRATROP 3MG/0.5MG NEB 3 ML VIAL NEB SCH ×2 (07:56→22:44)
[2023-12-09] MEDS: APIXABAN 5 MG TABLET PO SCH (09:28)
[2023-12-09] MEDS: DONEPEZIL HCL 10 MG TAB PO SCH (09:29)
[2023-12-09] MEDS: guaiFENesin 600 MG TABCR PO SCH (09:29)
[2023-12-09] MEDS: METOPROLOL SUCC 25MG EXT REL TAB PO SCH (09:32)
--- NOTE | 2023-12-09 12:08 | Hospitalist Progress Note ---
Date of Service December 09, 2023 Assessment & Plan (1) COVID-19: (2) COPD exacerbation: (3) Chronic respiratory failure with hypoxia: (4) Acute on chronic diastolic (congestive) heart failure: (5) Hypophosphatemia: (6) PAF (paroxysmal atrial fibrillation): (7) Anxiety and depression: (8) Dementia: Plan: Continue donezepil (9) Chronic pain: (10) Chronic anemia: Plan Patient is a 63yoF with PMHx significant for COPD, chronic hypoxic respiratory failure on chronic 4-5 L oxygen, paroxysmal atrial fibrillation anticoagulated with Eliquis, chronic diastolic heart failure, anxiety, depression, dementia, chronic pain and chronic anemia who presented to ER with URI symptoms in the setting of a covid infection. Acute on chronic hypoxic hypercapnic respiratory failure COVID-19 COPD exacerbation In ER T: 37.6 C, P: 82, R: 15, BP 106/65, 99% on 5 L nasal cannula WBC wnl, lactate and procalcitonin WNL vbg: pH: 7.29, pCO2: 73, HCO3: 35 CXR: No acute disease but does note cardiomegaly CT chest PE protocol pending Blood Cx x 2 pending In ER empirically treated with cefepime, received hour-long nebulizer, Solu- Medrol 125 mg, IV Tylenol, Mucinex Treated with Solu-Medrol 40 mg Q8H for COPD exacerbation, taper down as tolerated Scheduled duonebs, incentive spirometry, flutter valve, Mucinex and other supportive measures for covid Continue Zithromax 500mg daily for 3 days Pt requires bipap support based on vbg, states cannot tolerate. Respiratory contacted, pulm consulted- appreciate recs. Continue bipap as tolerated (strongly recommended and pt aware, reiterated by pu lm and respiratory), AM VBG Acute on chronic diastolic (congestive) heart failure Cardiomegaly BNP: 354, trop wnl Chest xray noting cardiomegaly CT chest PE protocol pending for further evaluation Last echo 08/2023- noted EF 65-70%, mild LVH, Grade 1 diastolic dysfunction, mild tricuspid regurg, no pulm HTN Repeat echo pending in this new setting In ER given 40 mg Lasix IV. Paris catheter placed and patient starting to diurese Monitor I's and O's, daily weights (Home dose of lasix was 40mg MWF & increased to 40mg BID on 12/06/23) Monitor response of diuresis, likely will need further lasix doses Iron Deficiency Anemia Chronic anemia History of GI bleed in 07/2023 History of chronic anemia. History iron deficiency anemia H/H: 8.7 on admission, down from 9.6 on 11/26/2023 AM iron panel ferritin, folate and B12 levels Continue iron supplement at this time Hypophosphatemia Phosphate: 1.9 on admission Replete as needed PAF (paroxysmal atrial fibrillation) On metoprolol for rate control Anticoagulated on Eliquis Continue Eliquis and metoprolol with holding parameters Anxiety and depression Continue sertraline, buspirone, lorazepam Dementia Continue donezepil Chronic pain Reported chronic left hip and left leg pain Continue gabapentin, baclofen and tramadol as needed Scheduled Tylenol for now Continue other home meds as ordered. Diet:HH/Low sodium DVT Prophylaxis:On Eliquis Dispo: PT/OT orders placed Admission and Anticipated Discharge Date Admission Date: December 08, 2023 Subjective Pt seen, resting comfortably in bed with NC in nares. States that she cannot tolerate the bipap. On further discussion of her VBG and risks and benefits of not using bipap, states that she does not "want a tube down her throat" and is willing to try a different mask. Respiratory contacted- will re-assess and assist. Pt also agreeable to pulm consult. States that she is not confused. Denies chest pain. Review of Systems Review of Systems: All systems reviewed & are unremarkable except as noted in Subjective Physical Exam Physical Exam: General: Alert, orientedx3. No acute distress laying in bed watching TV Psych: Appropriate mood and affect but anxious at times especially with discussion of use of bipap Neuro: difficulty with movements in bed HEENT: NC/AT, NC in nares CV: RRR Resp: Breath sounds coarse bilaterally, scattered wheezes bilaterally Abdomen: Soft Extremities: Edema in lower extremities bilaterally. Results & Data Results & Data Vital Signs (Past 12 Hours) Vital Signs Temp Pulse Pulse Resp BP Pulse Ox O2 Del Method 12/09/23 11:12 82 15 97 Nasal Cannula 12/09/23 10:19 36.7 C 77 17 100/65 98 Nasal Cannula 12/09/23 08:50 36.8 C 74 22 115/74 94 Nasal Cannula 12/09/23 07:58 74 17 99 Nasal Cannula 12/09/23 03:06 36.5 C 66 22 109/77 Nasal Cannula 12/09/23 02:56 73 O2 Flow Rate 12/09/23 11:12 5 12/09/23 10:19 5 12/09/23 08:50 5 12/09/23 07:58 5 12/09/23 03:06 5 12/09/23 02:56
--- NOTE | 2023-12-09 12:13 | Pulmonary Consultation ---
Date of Consultation December 09, 2023 Assessment & Plan (1) Acute on chronic respiratory failure with hypoxia and hypercapnia: (2) Chronic diastolic CHF (congestive heart failure): (3) COPD (chronic obstructive pulmonary disease): COPD type: COPD with acute exacerbation Qualified Code(s): J44.1 - Chronic obstructive pulmonary disease with (acute) exacerbation (4) Morbid obesity: Plan CT chest 08/12/2023 personally reviewed: Centrilobular emphysema appreciated bilaterally Cardiomegaly No significant mediastinal lymphadenopathy Chest x-ray 12/08/2023 personally reviewed: Portable film, fair inspiratory effort, blunting of the left costophrenic angle (likely fat pad), right costophrenic angle is clean, increased cardiac silhouette ABG 12/08/2023 7.36/56/88 on 5 L nasal cannula 2D echo 08/18/2023: EF 65-70%, grade 1 diastolic dysfunction, mild TR -- Acute on chronic hypoxic hypercapnic respiratory failure Usually on 4 L oxygen at home BNP 354 Procalcitonin negative Respiratory bio fire positive for COVID-19 PCR -- COPD with emphysema > 60-olle-rucb smoking history, quit at the age of 55 Not on any maintenance inhalers at home Would benefit from Incruse on a daily basis -- RUFINA Diagnosed in 2009 Patient has gained significant weight since then She will definitely benefit from CPAP/BiPAP at home -- Morbid obesity BMI 56 --Paroxysmal A-fib On Eliquis Plan: Chest x-ray did not seem to show any significant change from baseline Patient is at her baseline when it comes to her oxygen requirement. No need for remdesivir or any other Biologics for COVID-19 Can continue with dexamethasone or Solu-Medrol and complete the course for 10 days or even stopped earlier if the symptoms have resolved. Continue with incentive spirometry Mucinex Try to keep O2 saturation between 90-92%. Do not over oxygenate the patient Patient's hypercapnia is from underlying RUFINA/OHS. Unfortunately she is not able to tolerate BiPAP In summary is not able to tolerate BiPAP tracheostomy could be thought of but given her BMI even that would not be a good option for her. Case discussed with primary team and RT Please note the above document was generated using voice recognition software. It may contain grammatical, syntax or spelling errors.Any formal questions or concerns about the content, text or information contained within the body of this dictation should be directly addressed to the provider for clarification. History of Present Illness Attending Physician: Michaelle Ortiz MD History of Present Illness 63-year-old female presented to the hospital for shortness of breath Past medical history: A-fib on Eliquis, diastolic CHF, anxiety/depression Pulmonary consulted for hypercapnia At the time of examination patient was on nasal BiPAP 10/5. Saturating 95% with FiO2 40%. I was able to increase the EPAP to 6 and IPAP to 12 She was getting good tidal volumes. She was tolerating it well. Patient did have significant anxiety and was emotional during the interrogation. She says she is feeling little bit better since coming to the hospital. She reiterated multiple times that she wants to get better and does not want to come to the hospital anymore She was worried and asked also whether she is critical and she should be concerned. Did have some diarrhea at home. Nonbloody. No dysuria. Occasional cough with clear phlegm. Denies any chest congestion Subjective chills, no fever Denies any headache or blurry vision No hematuria, no hematochezia, no epistaxis Social history:> 70 pack-year smoking history, quit at the age of 55. No pets at home Allergies Allergy/AdvReac Type Severity Reaction Status Date / Time aspirin Allergy Unknown TAKES Verified 12/08/23 17:47 COUMADIN salicylates AdvReac Unknown ?DUE TO Verified 12/08/23 17:47 COUMADIN? Home Medications Medication Instructions Recorded Confirmed Type albuterol sulfate 5 mg/mL(0.5 %) 2.5 mg inhalation DIRECTED PRN 08/20/22 12/08/23 History solution for nebulization Shortness Of Breath Or Wheezing albuterol sulfate 90 mcg/actuation 2 puff inhalation QID PRN sob 08/20/22 12/08/23 History aerosol inhaler omeprazole 20 mg capsule,delayed 20 mg PO AMHS 07/15/23 12/08/23 History release montelukast 10 mg tablet 10 mg PO HS #30 tabs 07/23/23 12/08/23 Rx apixaban 5 mg tablet (Eliquis) 5 mg PO Q12 11/16/23 12/08/23 History baclofen 10 mg tablet 10 mg PO TID PRN .muscle spasm 11/16/23 12/08/23 History cholecalciferol (vitamin D3) 1,250 50,000 unit PO WE 11/16/23 12/08/23 History mcg (50,000 unit) capsule furosemide 40 mg tablet 40 mg PO BID 11/16/23 12/08/23 History ipratropium 0.5 mg-albuterol 3 mg 3 ml inhalation QID PRN Shortness 11/16/23 12/08/23 History (2.5 mg base)/3 mL nebulization Of Breath Or Wheezing soln iron,carbonyl 65 mg-vitamin C 125 2 tab PO QAM 11/16/23 12/08/23 History mg tablet,delayed release (Vitron-C) metoprolol succinate 25 mg 25 mg PO QAM 11/16/23 12/08/23 History tablet,extended release 24 hr mirtazapine 30 mg tablet 30 mg PO HS 11/16/23 12/08/23 History nystatin 100,000 unit/gram topical 1 applic topical BID 11/16/23 12/08/23 History powder (Nyamyc) sertraline 50 mg tablet 50 mg PO HS 11/16/23 12/08/23 History donepezil 10 mg tablet 10 mg PO QAM #30 tabs 11/26/23 12/08/23 Rx lorazepam 0.5 mg tablet 0.5 mg PO QID #28 tabs 11/26/23 12/08/23 Rx tramadol 50 mg tablet 50 mg PO Q6H PRN pain #20 tabs 11/26/23 12/08/23 Rx buspirone 5 mg tablet 5 mg PO TID 12/08/23 12/08/23 History docusate sodium 100 mg capsule 100 mg PO BID 12/08/23 12/08/23 History gabapentin 300 mg capsule 300 mg PO TID 12/08/23 12/08/23 History Patient History Medical History Swelling of left hand Encounter for pre-operative examination Sleep apnea mild RUFINA (dx in ) no machine currently -- pt to have another sleep study february 2023. Osteoarthritis Degenerative disc disease Urinary incontinence Peripheral neuropathy Anemia Congestive heart failure follows with [facility] cardiology ([facility]) Hypertension Dementia "very early stages" Alert and oriented x3. granddaughter is the caregiver of patient. Post traumatic stress disorder On home oxygen therapy continuous 3lpm via n/c. (will increase to 4lpm via n/c if needed) History of COVID-19 Spring 2020. treated at [facility] inpatient. symptoms included: sob, cough, desaturation 84-87%, congestion, headache, fatigue. no ventilator at the time. no current problems. Diarrhea started about 1 year ago -- will come and go. Chronic respiratory failure with hypoxia COPD (chronic obstructive pulmonary disease) Submucosal lesion of stomach Noted on EGD 11/06/20 Anticoagulated on Coumadin Paroxysmal A-fib feels her heart race at times. Chronic pain on daily narcotics (tramadol PRN) Morbid obesity Anxiety and depression History of stroke "embolic stroke, underlying PFO" total of 9 strokes -> last stroke ~6+years ago. damaged urinary nerve and mild left sided weakness. Surgical History Hx of lumpectomy left breast (benign) History of cataract surgery bilateral History of cardiac cath [facility] - "long time ago" -- pt unsure of details. H/O colonoscopy H/O esophagogastroduodenoscopy Status post hernia repair Right inguinal Status post hysterectomy MERT with BSO Status post cholecystectomy Family History Grandmother (Maternal) FHx: bladder cancer Father FHx: stroke Other Heart disease No family history of adverse response to anesthesia Social History Smoking Status: Former smoker Tobacco Type: Cigarettes Cigarettes Per Day: 2 ppd; Second Hand Exposure: No; Do You Dip or Chew Tobacco: No; Hx Alcohol Use: No Hx Substance Use: No Preferred Language: Grenadian Communication Ability: Effective Rheumatology Nurse Required: No Beliefs That Will Affect Care: None marital status: / Current Living Situation: Alone Current Living Situation Comment: Lives home teddy, granddaughter clarice assist patient Other Information That Helps Us Care for You: No Feels Safe at Home: Yes Safety Concerns: Feels Safe At This Time Assistive Devices: Hospital Bed, Oxygen - Continuous and Walker Review of Systems 2 Review of Systems: All systems reviewed & are unremarkable except as noted in HPI & below Physical Exam 2 Physical Exam: Constitutional: No acute distress HEENT: EOMI, PERRLA Respiratory system: Decreased air entry bilaterally, no wheeze, no rhonchi, mild crackles bilateral lower lobes CVS: S1-S2 positive, no murmurs or gallops Abdomen: Soft, nontender, nondistended, positive bowel sounds x4, obese Extremities: +2 pulses bilaterally radialis/ dorsalis pedis, no cyanosis, +1 pitting edema bilateral lower extremity Neuro: Awake alert oriented x3 Psych: Anxious mood and affect G/U: Positive [place] Skin: no rashes, warm and dry Lymphatic: no cervical or axillary lymphadenopathy Results & Data Results & Data Vital Signs (Past 12 Hours) Vital Signs Temp Pulse Pulse Resp BP Pulse Ox O2 Del Method 12/09/23 11:12 82 15 97 Nasal Cannula 12/09/23 10:19 36.7 C 77 17 100/65 98 Nasal Cannula 12/09/23 08:50 36.8 C 74 22 115/74 94 Nasal Cannula 12/09/23 07:58 74 17 99 Nasal Cannula 12/09/23 03:06 36.5 C 66 22 109/77 Nasal Cannula 12/09/23 02:56 73 O2 Flow Rate 12/09/23 11:12 5 12/09/23 10:19 5 12/09/23 08:50 5 12/09/23 07:58 5 12/09/23 03:06 5 12/09/23 02:56 Laboratory Results 12/09/23 05:52 12/09/23 05:52 PG Care Time/CCT Total # of Minutes Spent Total Time Spent with Patient: Total time spent is greater than 50% in coordination of care (as documented) at patient's floor/unit and/or counseling patient: Coding Level of Care Code 13554 INT INP/OBS CARE 3/75MIN Diagnoses Acute on chronic respiratory failure with hypoxia and hypercapnia J96.21; J96.22 Chronic diastolic CHF (congestive heart failure) I50.32 COPD (chronic obstructive pulmonary disease) J44.1 COPD type: COPD with acute exacerbation Morbid obesity E66.01
--- NOTE | 2023-12-09 19:46 | Electrocardiogram Report ---
Test Reason : Blood Pressure : / mmHG Vent. Rate : 082 BPM Atrial Rate : 082 BPM P-R Int : 142 ms QRS Dur : 080 ms QT Int : 380 ms P-R-T Axes : 049 022 049 degrees QTc Int : 443 ms Normal sinus rhythm Low voltage QRS Borderline ECG When compared with ECG of 23-NOV-2023 16:38, No significant change was found Confirmed by Dov Cintron ([id number]) on 12/09/2023 7:45:27 PM Referred By: Confirmed By:David Cintron
[2023-12-09] MEDS: BACLOFEN 10 MG TAB PO PRN (20:55)
[2023-12-09] MEDS: MELATONIN 3 MG TAB PO PRN (20:55)
[2023-12-09] MEDS: ACETAMINOPHEN W/CODEINE #3 1 TAB PO ONE (20:55)
[2023-12-09] MEDS: ALBUT/IPRATROP 3MG/0.5MG NEB 3 ML VIAL ONE (22:44)
[2023-12-10] MEDS: methylPREDNISolone 40 MG in SYRINGE 0 ML IV SCH
[2023-12-10] MEDS ORDERED: Nursing to Pharmacy Communication SCH (02:00)
[2023-12-10] MEDS: ACETAMINOPHEN 500 MG TAB PO SCH (02:12)
[2023-12-10 06:24] LABS: Base Excess VBG 4.9 mEq/L; HCO3 VBG 33 mmol/L; Oxygen Saturation VBG 70.2 %; PCO2 VBG 62 mmHg (38-50); PO2 VBG 43 mmHg; pH VBG 7.33 (7.36-7.41)
[2023-12-10 06:36] LABS: Hematocrit (blood only) 26.2 % (37.0-47.0); Hemoglobin 8.4 g/dl (12.0-16.0); Mean Corpuscular Hemoglobin 30.9 pg (25.0-34.0); Mean Corpuscular Hgb Conc 32.1 g/dL (32.0-36.0); Mean Corpuscular Volume 96.3 fL (80.0-100.0); Nucleated RBC # (auto) 0.03 K/uL (0.00-0.12); Nucleated RBC % (auto) 0.4 %; Platelet Count 355 K/uL (130-400); RDW Coefficient of Variation 23.6 % (11.5-14.5); RDW Standard Deviation 82.5 fL (36.4-46.3); Red Blood Count 2.72 M/uL (4.20-5.40); White Blood Count 7.77 K/ul (4.8-10.8)
[2023-12-10 06:56] LABS: BUN Creatinine Ratio 16.9 (10-20); Calcium 8.3 mg/dl (8.6-10.3); Creatinine Clr Calc Pharmacy 94.6 ml/min; Magnesium 2.2 mg/dl (1.7-2.4); Potassium 3.8 mmol/L (3.5-5.1)
[2023-12-10 07:17] LABS: Ferritin 26.3 ng/ml (8-388)
[2023-12-10 07:23] LABS: Folate (Folic Acid),Ser orPlas 5.53 ng/ml (>5.38)
[2023-12-10] MEDS: UMECLIDINIUM BROMIDE 62.5MCG/BLISTER 7 PUFFS/INHALER INH SCH (09:27)
[2023-12-10] MEDS: ASCORBIC ACID 500 MG TAB PO SCH (09:32)
[2023-12-10] MEDS: FERROUS SULFATE 325 MG TAB PO SCH (09:32)
[2023-12-10] MEDS ORDERED: POTASSIUM PHOS 3 MMOL/1 ML INFUSION IV STA (10:04)
--- NOTE | 2023-12-10 10:38 | Pulmonology Progress Note ---
Date of Service December 10, 2023 Assessment & Plan (1) Acute on chronic respiratory failure with hypoxia and hypercapnia: (2) Chronic diastolic CHF (congestive heart failure): (3) COPD (chronic obstructive pulmonary disease): COPD type: COPD with acute exacerbation Qualified Code(s): J44.1 - Chronic obstructive pulmonary disease with (acute) exacerbation (4) Morbid obesity: Plan CT chest 08/12/2023 personally reviewed: Centrilobular emphysema appreciated bilaterally Cardiomegaly No significant mediastinal lymphadenopathy Chest x-ray 12/08/2023 personally reviewed: Portable film, fair inspiratory effort, blunting of the left costophrenic angle (likely fat pad), right costophrenic angle is clean, increased cardiac silhouette ABG 12/08/2023 7.36/56/88 on 5 L nasal cannula 2D echo 08/18/2023: EF 65-70%, grade 1 diastolic dysfunction, mild TR -- Acute on chronic hypoxic hypercapnic respiratory failure Usually on 4 L oxygen at home BNP 354 Procalcitonin negative Respiratory bio fire positive for COVID-19 PCR -- COPD with emphysema > [id number] smoking history, quit at the age of 55 Not on any maintenance inhalers at home Would benefit from Incruse on a daily basis -- RUFINA Diagnosed in 2009 Patient has gained significant weight since then She will definitely benefit from CPAP/BiPAP at home -- Morbid obesity BMI 56 --Paroxysmal A-fib On Eliquis Plan: VBG showing decrease in pCO2. Patient is still being hyperoxygenated. O2 saturation goal should be 88-92% Over oxygenation will decrease the respiratory drive and increase the pCO2. This was explained to the patient but she is adamant at 5 L. Recommend not having the patient want her oxygen is set at and she will titrate the oxygen saturation around 90-92% Patient is at her baseline when it comes to her oxygen requirement. No need for remdesivir or any other Biologics for COVID-19 Can continue with dexamethasone or Solu-Medrol and complete the course for 10 days or even stopped earlier if the symptoms have resolved. Continue with incentive spirometry Mucinex Patient's hypercapnia is from underlying RUFINA/OHS. Unfortunately she is not able to tolerate BiPAP In summary is not able to tolerate BiPAP tracheostomy could be thought of but given her BMI even that would not be a good option for her. Case discussed with primary team and RT No further recommendation from pulmonary perspective, will sign off Please call directly with any questions Please note the above document was generated using voice recognition software. It may contain grammatical, syntax or spelling errors.Any formal questions or concerns about the content, text or information contained within the body of this dictation should be directly addressed to the provider for clarification. Admission and Anticipated Discharge Date Admission Date: December 08, 2023 Subjective Patient seen and examined at bedside. No acute distress, notable since overnight She did use BiPAP through nasal mask yesterday all day as well as last night. She was saturating 97% on 5 L nasal cannula. Nurse was also in the room Patient has a very high level of anxiety and did get emotional again during interrogation Review of Systems 2 Review of Systems: All systems reviewed & are unremarkable except as noted in Subjective Physical Exam 2 Physical Exam: Constitutional: No acute distress HEENT: EOMI, PERRLA Respiratory system: Decreased air entry bilaterally, no wheeze, no rhonchi, mild crackles bilateral lower lobes CVS: S1-S2 positive Abdomen: Soft, nontender, nondistended, positive bowel sounds x4, obese Extremities: +2 pulses bilaterally radialis/ dorsalis pedis, no cyanosis, +1 pitting edema bilateral lower extremity Neuro: Awake alert oriented x3 Psych: Anxious mood and affect G/U: Positive [place] Skin: no rashes, warm and dry Lymphatic: no cervical or axillary lymphadenopathy Results & Data Results & Data Vital Signs (Past 12 Hours) Vital Signs Temp Pulse Pulse Resp BP Pulse Ox O2 Del Method 12/10/23 08:05 36.6 C 77 20 112/73 96 Nasal Cannula 12/10/23 07:43 84 24 95 Nasal Cannula 12/10/23 02:49 78 17 92 12/10/23 02:43 36.5 C 76 20 129/76 96 BiPAP 12/10/23 00:16 75 12/09/23 23:21 36.8 C 80 17 98/59 L 95 BiPAP 12/09/23 22:52 84 18 95 O2 Flow Rate FiO2 12/10/23 08:05 5 12/10/23 07:43 5 12/10/23 02:49 35 12/10/23 02:43 12/10/23 00:16 12/09/23 23:21 5 12/09/23 22:52 35 Laboratory Results 12/10/23 06:13 12/10/23 06:13 PG Care Time/CCT Total # of Minutes Spent Total Time Spent with Patient: Total time spent is greater than 50% in coordination of care (as documented) at patient's floor/unit and/or counseling patient: Coding Level of Care Code 60392 SUB INP/OBS CARE 3/50MIN Diagnoses Acute on chronic respiratory failure with hypoxia and hypercapnia J96.21; J96.22 Chronic diastolic CHF (congestive heart failure) I50.32 COPD (chronic obstructive pulmonary disease) J44.1 COPD type: COPD with acute exacerbation Morbid obesity E66.01
[2023-12-10] MEDS: IRON SUCROSE 200 MG in 0.9 % SODIUM CHLORIDE 100 ML IV ONE (11:05)
[2023-12-10] MEDS: POTASSIUM PHOSPHATE 21 MMOL in SODIUM CHLORIDE 0.9% 500 ML IV ONE (11:07)
[2023-12-10] MEDS: MICONAZOLE NITRATE POWDER 85 GM EXT SCH (11:24)
--- NOTE | 2023-12-10 13:36 | Hospitalist Progress Note ---
Date of Service December 10, 2023 Assessment & Plan (1) COVID-19: (2) COPD exacerbation: (3) Chronic respiratory failure with hypoxia: (4) Acute on chronic diastolic (congestive) heart failure: (5) Hypophosphatemia: (6) PAF (paroxysmal atrial fibrillation): (7) Anxiety and depression: (8) Dementia: Plan: Continue donezepil (9) Chronic pain: (10) Chronic anemia: Plan Patient is a 63yoF with PMHx significant for COPD, chronic hypoxic respiratory failure on chronic 4-5 L oxygen, paroxysmal atrial fibrillation anticoagulated with Eliquis, chronic diastolic heart failure, anxiety, depression, dementia, chronic pain and chronic anemia who presented to ER with URI symptoms in the setting of a covid infection. Acute on chronic hypoxic hypercapnic respiratory failure COVID-19 COPD exacerbation In ER T: 37.6 C, P: 82, R: 15, BP 106/65, 99% on 5 L nasal cannula WBC wnl, lactate and procalcitonin WNL vbg: pH: 7.29, pCO2: 73, HCO3: 35 CXR: No acute disease but does note cardiomegaly CT chest PE protocol showing no acute changes, no PE Blood Cx x 2 NGTD Sputum Cx pending In ER empirically treated with cefepime, received hour-long nebulizer, Solu- Medrol 125 mg, IV Tylenol, Mucinex Treated with Solu-Medrol 40 mg Q8H for COPD exacerbation, tapered down as tolerated before switching to dexamethasone per Pulm recs Scheduled duonebs, incentive spirometry, flutter valve, Mucinex and other supportive measures for covid Continue Zithromax 500mg daily for 3 days Pt requires bipap support based on vbg, states cannot tolerate. Respiratory contacted, pulm consulted- appreciate recs. Continue bipap as tolerated (strongly recommended and pt aware, reiterated by pulm and respiratory), AM VBG 12/10- VBG improved today as pt used bipap overnight. Agreeable to using again tonight. Per pulm, can switch to Dexamethasone for covid-19 support, avoid hyperoxygenation. Continue bipap use. Pulm recommending repeat psych consult to discuss her chronic use of benzos which can suppress respiratory drive as well. Appreciate recs Acute on chronic diastolic (congestive) heart failure Cardiomegaly BNP: 354, trop wnl Chest xray noting cardiomegaly CT chest PE protocol no acute changes, no PE Last echo 08/2023- noted EF 65-70%, mild LVH, Grade 1 diastolic dysfunction, mild tricuspid regurg, no pulm HTN Repeat echo noting LVH, EF 60-65% In ER given 40 mg Lasix IV. [place] catheter placed and patient starting to diurese Monitor I's and O's, daily weights (Home dose of lasix was 40mg MWF & increased to 40mg BID on 12/06/23) Monitor response of diuresis, likely will need further lasix doses 12/10- pt restarted on home lasix dose 40mg BID Chest Pain Pt stated she was having chest pain on 12/[address] reviewed with no acute changes Pt very anxious at that time, given her Ativan dose Continue to monitor Iron Deficiency Anemia Chronic anemia History of GI bleed in 07/2023 History of chronic anemia. History iron deficiency anemia H/H: 8.7 on admission, down from 9.6 on 11/26/2023 Iron level of 13, given IV Venofer, continue iron supplement at this time Folate and B12 levels currently wnl Continue to monitor PCP follow up Hypophosphatemia Phosphate: 1.9 on admission Replete as needed PAF (paroxysmal atrial fibrillation) On metoprolol for rate control Anticoagulated on Eliquis Continue Eliquis and metoprolol with holding parameters Anxiety and depression Continue sertraline, buspirone, lorazepam 12/10- consult placed to psych once more for lorazepam reevaluation in setting of respiratory issues noted above. Dementia Continue donezepil Chronic pain Reported chronic left hip and left leg pain Continue gabapentin, baclofen and tramadol as needed Scheduled Tylenol for now Continue other home meds as ordered. Diet:HH/Low sodium DVT Prophylaxis:On Eliquis Dispo: PT/OT orders placed Admission and Anticipated Discharge Date Admission Date: December 08, 2023 Subjective Pt seen multiple times during the day. Initially in AM, denied acute concerns. Was about to be cleaned up. Noted left lower extremity that was tender, slightly erythematous. Later in the evening stated that she was having chest pain. Anxious at that time. Noted that when she was discharged she was not taking any of her medications including Eliquis for 4 days. Review of Systems Review of Systems: All systems reviewed & are unremarkable except as noted in Subjective Physical Exam Physical Exam: General: Alert, orientedx3. Psych: Appropriate mood and affect but anxious at times Neuro: difficulty with movements in bed HEENT: NC/AT, NC in nares CV: RRR Resp: Breath sounds coarse bilaterally, scattered wheezes bilaterally Abdomen: Soft Extremities: Edema in lower extremities bilaterally. Results & Data Results & Data Vital Signs (Past 12 Hours) Vital Signs Temp Pulse Pulse Resp BP Pulse Ox Pulse Ox 12/10/23 12:39 94 12/10/23 11:24 36.4 C L 75 20 105/63 94 12/10/23 09:10 12/10/23 08:05 36.6 C 77 20 112/73 96 12/10/23 07:43 84 24 95 12/10/23 07:12 66 12/10/23 02:49 78 17 92 12/10/23 02:43 36.5 C 76 20 129/76 96 Pulse Ox Pulse Ox O2 Del Method O2 Flow Rate O2 Flow Rate O2 Flow Rate O2 Flow Rate 12/10/23 12:39 90 86 L 3 1 2 12/10/23 11:24 Nasal Cannula 2 12/10/23 09:10 Nasal Cannula 3 12/10/23 08:05 Nasal Cannula 5 12/10/23 07:43 Nasal Cannula 5 12/10/23 07:12 12/10/23 02:49 12/10/23 02:43 BiPAP FiO2 12/10/23 12:39 12/10/23 11:24 12/10/23 09:10 12/10/23 08:05 12/10/23 07:43 12/10/23 07:12 12/10/23 02:49 35 12/10/23 02:43
--- NOTE | 2023-12-10 17:38 | Electrocardiogram Report ---
Test Reason : Blood Pressure : / mmHG Vent. Rate : 078 BPM Atrial Rate : 078 BPM P-R Int : 140 ms QRS Dur : 084 ms QT Int : 392 ms P-R-T Axes : 040 016 045 degrees QTc Int : 446 ms Poor data quality, interpretation may be adversely affected Normal sinus rhythm Low voltage QRS Borderline ECG When compared with ECG of 08-DEC-2023 15:50, No significant change was found Confirmed by Dov Cintron ([id number]) on 12/10/2023 5:37:34 PM Referred By: REFERRED SELF Confirmed By:David Cintron
[2023-12-10] MEDS: OPTIRAY 320 125ml IV ONE (19:29)
--- NOTE | 2023-12-10 20:43 | Ultrasound Report ---
Exam(s): US VENOUS LEFT LOWER EXTREMITY EXAM: US Duplex Left Lower Extremity Veins CLINICAL HISTORY: Reason for exam: erythema and pain of LLE. TECHNIQUE: Real-time duplex ultrasound scan of the left lower extremity veins integrating B-mode two-dimensional vascular structure, Doppler spectral analysis, color flow Doppler imaging and compression. COMPARISON: 08/18/2023. FINDINGS: Deep veins: Unremarkable. No DVT in the visualized common femoral, femoral, proximal deep femoral or popliteal veins. The veins demonstrate normal color flow, are normally compressible, with normal phasic flow and/or augmentation response. Superficial veins: Unremarkable. No thrombus in the visualized great saphenous vein. Soft tissues: Nonspecific edema involving the left calf region. No popliteal cyst. Other findings: Suboptimally seen calf veins. IMPRESSION: No ultrasonographic evidence of deep venous thrombosis involving the left lower extremity. Electronically signed by: Arleen Paulino MD 12/10/23 20:42 PM
--- NOTE | 2023-12-10 21:10 | CT Scan Report ---
Exam(s): CTA CHEST IV Amt: 118 ml optiray 320 EXAM: CT Angiography Chest With Intravenous Contrast CLINICAL HISTORY: Reason for exam: PE. TECHNIQUE: Axial computed tomographic angiography images of the chest with intravenous contrast. CTDI is 28.14 mGy and DLP is 845.49 mGy-cm. Automated exposure control was utilized for the study. A dose lowering technique was utilized adhering to the principles of ALARA. MIP reconstructed images were created and reviewed. COMPARISON: 08/12/2023. FINDINGS: Pulmonary arteries: Unremarkable. No pulmonary embolism. Aorta: Mild atherosclerotic disease throughout the aorta with no aneurysm or dissection. Lungs: The lungs are underexpanded with mild vascular crowding. Mild bilateral lower lobe atelectasis, otherwise remainder of the lung mena are clear. No mass. Pleural space: Unremarkable. No significant effusion. No pneumothorax. Heart: Borderline mild cardiomegaly. No significant pericardial effusion. No evidence of RV dysfunction. Bones/joints: No acute fracture. No dislocation. Soft tissues: Unremarkable. Lymph nodes: Unremarkable. No enlarged lymph nodes. Gallbladder and bile ducts: Abdomen revealed status post cholecystectomy, otherwise unremarkable. Other findings: Mild degenerative disease of the spine. IMPRESSION: 1. No pulmonary embolus or aortic dissection pain 2. Mild bilateral lower lobe atelectasis, otherwise no acute cardiopulmonary disease. Electronically signed by: Arleen Paulino MD 12/10/23 21:09 PM
[2023-12-11] MEDS: dexAMETHasone 6 MG in SYRINGE 0 ML IV SCH (02:21)
[2023-12-11 06:29] LABS: Base Excess VBG 6.4 mEq/L; HCO3 VBG 35 mmol/L; Oxygen Saturation VBG < 60.0 %; PCO2 VBG 70 mmHg (38-50); PO2 VBG 33 mmHg; pH VBG 7.31 (7.36-7.41)
[2023-12-11 06:35] LABS: Hematocrit (blood only) 27.6 % (37.0-47.0); Hemoglobin 8.6 g/dl (12.0-16.0); Mean Corpuscular Hemoglobin 30.6 pg (25.0-34.0); Mean Corpuscular Hgb Conc 31.2 g/dL (32.0-36.0); Mean Corpuscular Volume 98.2 fL (80.0-100.0); Mean Platelet Volume 9.2 fL (9.4-12.4); Nucleated RBC # (auto) 0.06 K/uL (0.00-0.12); Nucleated RBC % (auto) 0.6 %; Platelet Count 384 K/uL (130-400); RDW Standard Deviation 86.4 fL (36.4-46.3); Red Blood Count 2.81 M/uL (4.20-5.40); White Blood Count 10.41 K/ul (4.8-10.8)
[2023-12-11 06:50] LABS: Calcium 8.5 mg/dl (8.6-10.3); Creatinine Clr Calc Pharmacy 98.4 ml/min; Est GFR (African American) 92.3 ml/min; Est GFR (Non-African American) 79.7 ml/min; Magnesium 2.2 mg/dl (1.7-2.4); Phosphorus 2.6 mg/dl (2.5-4.9); Potassium 4.2 mmol/L (3.5-5.1)
[2023-12-11 06:58] LABS: Troponin I High Sensitivity 4.1 pg/ml (0-14)
[2023-12-11] MEDS: FUROSEMIDE 40 MG TAB PO SCH (09:01)
--- NOTE | 2023-12-11 10:06 | Hospitalist Progress Note ---
Date of Service December 11, 2023 Assessment & Plan (1) COVID-19: (2) COPD exacerbation: (3) Chronic respiratory failure with hypoxia: (4) Acute on chronic diastolic (congestive) heart failure: (5) Hypophosphatemia: (6) PAF (paroxysmal atrial fibrillation): (7) Anxiety and depression: (8) Dementia: Plan: Continue donezepil (9) Chronic pain: (10) Chronic anemia: Plan Patient is a 63yoF with PMHx significant for COPD, chronic hypoxic respiratory failure on chronic 4-5 L oxygen, paroxysmal atrial fibrillation anticoagulated with Eliquis, chronic diastolic heart failure, anxiety, depression, dementia, chronic pain and chronic anemia who presented to ER with URI symptoms in the setting of a covid infection. Acute on chronic hypoxic hypercapnic respiratory failure COVID-19 COPD exacerbation In ER T: 37.6 C, P: 82, R: 15, BP 106/65, 99% on 5 L nasal cannula WBC wnl, lactate and procalcitonin WNL vbg: pH: 7.29, pCO2: 73, HCO3: 35 CXR: No acute disease but does note cardiomegaly CT chest PE protocol showing no acute changes, no PE Blood Cx x 2 NGTD Sputum Cx pending In ER empirically treated with cefepime, received hour-long nebulizer, Solu- Medrol 125 mg, IV Tylenol, Mucinex Treated with Solu-Medrol 40 mg Q8H for COPD exacerbation, tapered down as tolerated before switching to dexamethasone per Pulm recs Scheduled duonebs, incentive spirometry, flutter valve, Mucinex and other supportive measures for covid Continue Zithromax 500mg daily for 3 days Pt requires bipap support based on vbg, states cannot tolerate. Respiratory contacted, pulm consulted- appreciate recs. Continue bipap as tolerated (strongly recommended and pt aware, reiterated by pulm and respiratory), AM VBG 12/10- VBG improved today as pt used bipap overnight. Agreeable to using again tonight. Per pulm, can switch to Dexamethasone for covid-19 support, avoid hyperoxygenation. Continue bipap use. Pulm recommending repeat psych consult to discuss her chronic use of benzos which can suppress respiratory drive as well. Appreciate recs 12/11- VBG a little worse than the day before, pt notes she used the bipap overnight. Agreeable to using during the day today after another lorin discussi on. Psychiatry consult placed as chronic benzo use likely playing a factor in her respiratory status but pt remains extremely anxious, appreciate further recs. Continue Dexamethasone, bipap Acute on chronic diastolic (congestive) heart failure Cardiomegaly BNP: 354, trop wnl Chest xray noting cardiomegaly CT chest PE protocol no acute changes, no PE Last echo 08/2023- noted EF 65-70%, mild LVH, Grade 1 diastolic dysfunction, mild tricuspid regurg, no pulm HTN Repeat echo noting LVH, EF 60-65% In ER given 40 mg Lasix IV. [place] catheter placed and patient starting to diurese Monitor I's and O's, daily weights (Home dose of lasix was 40mg MWF & increased to 40mg BID on 12/06/23) Monitor response of diuresis, likely will need further lasix doses 12/10- pt restarted on home lasix dose 40mg BID 12/11- continue lasix, monitor I&Os, daily weights Chest Pain Pt stated she was having chest pain on 12/[address] reviewed with no acute changes Pt very anxious at that time, given her Ativan dose Continue to monitor 12/11-improved Iron Deficiency Anemia Chronic anemia History of GI bleed in 07/2023 History of chronic anemia. History iron deficiency anemia H/H: 8.7 on admission, down from 9.6 on 11/26/2023 Iron level of 13, given IV Venofer, continue iron supplement at this time Folate and B12 levels currently wnl Continue to monitor PCP follow up Hypophosphatemia Phosphate: 1.9 on admission Replete as needed PAF (paroxysmal atrial fibrillation) On metoprolol for rate control Anticoagulated on Eliquis Continue Eliquis and metoprolol with holding parameters Anxiety and depression Continue sertraline, buspirone, lorazepam 12/10- consult placed to psych once more for lorazepam reevaluation in setting of respiratory issues noted above. 12/11- awaiting further psych recs, appreciated Dementia Continue donepezil Chronic pain Reported chronic left hip and left leg pain LLE negative for DVT on doppler US Continue gabapentin, baclofen and tramadol as needed Scheduled Tylenol for now Continue other home meds as ordered. Diet:HH/Low sodium DVT Prophylaxis:On Eliquis Dispo: PT/OT orders placed- recommending rehab, returning to [facility] once medically stable Admission and Anticipated Discharge Date Admission Date: December 08, 2023 Subjective Pt seen in the AM. Discussion once more about VBG results and need to use bipap. pt agreeable to trying to use during the day. Notes that she is still anxious. Review of Systems Review of Systems: All systems reviewed & are unremarkable except as noted in Subjective Physical Exam Physical Exam: General: Alert, orientedx3. Psych: Appropriate mood and affect but anxious at times Neuro: difficulty with movements in bed HEENT: NC/AT, NC in nares CV: RRR Resp: Breath sounds coarse bilaterally, scattered wheezes bilaterally Abdomen: Soft Extremities: Edema in lower extremities bilaterally. Results & Data Results & Data Vital Signs (Past 12 Hours) Vital Signs Temp Pulse Pulse Resp BP Pulse Ox O2 Del Method 12/11/23 08:55 36.4 C L 79 18 137/78 92 Nasal Cannula 12/11/23 07:33 76 18 94 Nasal Cannula 12/11/23 03:45 88 20 93 12/11/23 02:31 36.4 C L 82 22 106/67 92 BiPAP 12/11/23 00:25 71 12/10/23 23:09 37 C 82 20 109/67 92 BiPAP 12/10/23 23:03 82 20 92 BiPAP O2 Flow Rate FiO2 12/11/23 08:55 1 12/11/23 07:33 1 12/11/23 03:45 35 12/11/23 02:31 35 12/11/23 00:25 12/10/23 23:09 35 12/10/23 23:03 35
[2023-12-12 06:13] LABS: HCO3 VBG 42 mmol/L; Oxygen Saturation VBG 69.9 %; PCO2 VBG 66 mmHg (38-50); PO2 VBG 42 mmHg; pH VBG 7.41 (7.36-7.41)
[2023-12-12 06:30] LABS: Hematocrit (blood only) 28.2 % (37.0-47.0); Hemoglobin 8.7 g/dl (12.0-16.0); Mean Corpuscular Hemoglobin 30.6 pg (25.0-34.0); Mean Corpuscular Hgb Conc 30.9 g/dL (32.0-36.0); Mean Corpuscular Volume 99.3 fL (80.0-100.0); Mean Platelet Volume 8.8 fL (9.4-12.4); Nucleated RBC % (auto) 1.9 %; Platelet Count 375 K/uL (130-400); RDW Standard Deviation 87.6 fL (36.4-46.3); Red Blood Count 2.84 M/uL (4.20-5.40); White Blood Count 10.67 K/ul (4.8-10.8)
[2023-12-12 06:57] LABS: BUN Creatinine Ratio 16.7 (10-20); Calcium 8.2 mg/dl (8.6-10.3); Creatinine Clr Calc Pharmacy 100.5 ml/min; Est GFR (African American) 93.8 ml/min; Est GFR (Non-African American) 80.9 ml/min; Magnesium 1.7 mg/dl (1.7-2.4); Phosphorus 1.4 mg/dl (2.5-4.9); Potassium 3.1 mmol/L (3.5-5.1)
[2023-12-12] MEDS ORDERED: POTASSIUM PHOS 3 MMOL/1 ML INFUSION IV STA (07:06)
[2023-12-12] MEDS: MAGNESIUM SULFATE / D5W 1 GM/100 ML BAG IV ONE (08:08)
[2023-12-12] MEDS: POTASSIUM CHLORIDE CRTAB 20 MEQ TABCR PO STA (08:08)
[2023-12-12] MEDS: POTASSIUM PHOSPHATE 30 MMOL in SODIUM CHLORIDE 0.9% 500 ML IV ONE (08:08)
--- NOTE | 2023-12-12 11:52 | Hospitalist Progress Note ---
Date of Service December 12, 2023 Assessment & Plan (1) COVID-19: (2) COPD exacerbation: (3) Chronic respiratory failure with hypoxia: (4) Acute on chronic diastolic (congestive) heart failure: (5) Hypophosphatemia: (6) PAF (paroxysmal atrial fibrillation): (7) Anxiety and depression: (8) Dementia: Plan: Continue donezepil (9) Chronic pain: (10) Chronic anemia: Plan Patient is a 63yoF with PMHx significant for COPD, chronic hypoxic respiratory failure on chronic 4-5 L oxygen, paroxysmal atrial fibrillation anticoagulated with Eliquis, chronic diastolic heart failure, anxiety, depression, dementia, chronic pain and chronic anemia who presented to ER with URI symptoms in the setting of a covid infection. Acute on chronic hypoxic hypercapnic respiratory failure COVID-19 COPD exacerbation In ER T: 37.6 C, P: 82, R: 15, BP 106/65, 99% on 5 L nasal cannula WBC wnl, lactate and procalcitonin WNL vbg: pH: 7.29, pCO2: 73, HCO3: 35 CXR: No acute disease but does note cardiomegaly CT chest PE protocol showing no acute changes, no PE Blood Cx x 2 NGTD Sputum Cx pending In ER empirically treated with cefepime, received hour-long nebulizer, Solu- Medrol 125 mg, IV Tylenol, Mucinex Treated with Solu-Medrol 40 mg Q8H for COPD exacerbation, tapered down as tolerated before switching to dexamethasone per Pulm recs Scheduled duonebs, incentive spirometry, flutter valve, Mucinex and other supportive measures for covid Continue Zithromax 500mg daily for 3 days Pt requires bipap support based on vbg, states cannot tolerate. Respiratory contacted, pulm consulted- appreciate recs. Continue bipap as tolerated (strongly recommended and pt aware, reiterated by pulm and respiratory), AM VBG 12/10- VBG improved today as pt used bipap overnight. Agreeable to using again tonight. Per pulm, can switch to Dexamethasone for covid-19 support, avoid hyperoxygenation. Continue bipap use. Pulm recommending repeat psych consult to discuss her chronic use of benzos which can suppress respiratory drive as well. Appreciate recs 12/11- VBG a little worse than the day before, pt notes she used the bipap overnight. Agreeable to using during the day today after another lorin discussion. Psychiatry consult placed as chronic benzo use likely playing a factor in her respiratory status but pt remains extremely anxious, appreciate further recs. Continue Dexamethasone, bipap 12/12- VBG improved significantly with use of bipap throughout the day before. Continue with IV Dexamethasone for 5 days/until d/c Acute on chronic diastolic (congestive) heart failure Cardiomegaly BNP: 354, trop wnl Chest xray noting cardiomegaly CT chest PE protocol no acute changes, no PE Last echo 08/2023- noted EF 65-70%, mild LVH, Grade 1 diastolic dysfunction, mild tricuspid regurg, no pulm HTN Repeat echo noting LVH, EF 60-65% In ER given 40 mg Lasix IV. [place] catheter placed and patient starting to diurese Monitor I's and O's, daily weights (Home dose of lasix was 40mg MWF & increased to 40mg BID on 12/06/23) Monitor response of diuresis, likely will need further lasix doses 12/10- pt restarted on home lasix dose 40mg BID 12/11- continue lasix, monitor I&Os, daily weights 12/12 stable, weight down from 146 on admission to 138 today Chest Pain Pt stated she was having chest pain on 12/[address] reviewed with no acute changes Pt very anxious at that time, given her Ativan dose Continue to monitor Remains stable Iron Deficiency Anemia Chronic anemia History of GI bleed in 07/2023 History of chronic anemia. History iron deficiency anemia H/H: 8.7 on admission, down from 9.6 on 11/26/2023 Iron level of 13, given IV Venofer, continue iron supplement at this time Folate and B12 levels currently wnl Continue to monitor PCP follow up Hypophosphatemia Phosphate: 1.9 on admission Replete as needed PAF (paroxysmal atrial fibrillation) On metoprolol for rate control Anticoagulated on Eliquis Continue Eliquis and metoprolol with holding parameters Anxiety and depression Continue sertraline, buspirone, lorazepam 12/10- consult placed to psych once more for lorazepam reevaluation in setting of respiratory issues noted above. 12/11- awaiting further psych recs, appreciated 12/12- awaiting further psych recs as her scheduled lorazepam is further worsening her respiratory acidosis for which bipap is absolutely needed (vs. a tracheostomy per pulm) and pt struggles to use the bipap. However, with her s evere anxiety, alternative treatment is needed . Appreciate recs. Dementia Continue donepezil Chronic pain Reported chronic left hip and left leg pain LLE negative for DVT on doppler US Continue gabapentin, baclofen and tramadol as needed Scheduled Tylenol for now Continue other home meds as ordered. Diet:HH/Low sodium DVT Prophylaxis:On Eliquis Dispo: PT/OT orders placed- recommending rehab, returning to [facility] once medically stable Admission and Anticipated Discharge Date Admission Date: December 08, 2023 Subjective Pt was seen in the AM. Noted that she wore the bipap overnight and during the day before. Notes that she feels like she cannot breathe with the bipap mask on and it increases her anxiety. Notes that she has been having frequent bouts of foul smelling diarrhea. Review of Systems Review of Systems: All systems reviewed & are unremarkable except as noted in Subjective Physical Exam Physical Exam: General: Alert, orientedx3. Psych: Appropriate mood and affect but anxious at times Neuro: difficulty with movements in bed HEENT: NC/AT, NC in nares CV: RRR Resp: Breath sounds coarse bilaterally, scattered wheezes bilaterally Abdomen: Soft Extremities: Edema in lower extremities bilaterally. Results & Data Results & Data Vital Signs (Past 12 Hours) Vital Signs Temp Pulse Pulse Resp BP Pulse Ox O2 Del Method 12/12/23 10:45 Nasal Cannula 12/12/23 10:09 86 26 H 94 12/12/23 09:57 83 12/12/23 09:56 86 21 93 Nasal Cannula 12/12/23 08:15 37.2 C 82 22 135/75 91 Nasal Cannula 12/12/23 07:11 86 22 94 Nasal Cannula 12/12/23 02:49 79 22 93 12/12/23 02:32 36.7 C 80 20 116/72 96 CPAP O2 Flow Rate FiO2 12/12/23 10:45 4 12/12/23 10:09 35 12/12/23 09:57 12/12/23 09:56 3.5 12/12/23 08:15 4 12/12/23 07:11 3 12/12/23 02:49 45 12/12/23 02:32
[2023-12-12] MEDS: LOPERAMIDE HCL 2 MG CAP PO PRN (13:45)
--- NOTE | 2023-12-12 18:33 | Psychiatric Consultation ---
Date of Consultation December 12, 2023 Impression / Recommendations Impression 63 y/o woman with a long history of anxiety that by all available records has never been treated to her satisfaction and who has demonstrated a focus on benzodiazepines (especially lorazepam) to address this. She has had a number of losses, including the of her 17 months ago and currently the loss of her ability to function independently. She has had increasingly evident memory impairment. She has multiple significant medical problems that are vexing in themselves and that collectively account for significant disability. Over the course of the 6 psychiatric consultations here over the past 3 years, there have been consistent recommendations to: * limit or avoid benzodiazepines (all except 11/28/2021 and 11/20/2023) * start ssri or increase dose of the current one (all) * titrate buspirone dose (05/21/2021, 11/28/2021, 11/20/2023) She's rejected these due to her focus on things that will work immediately. Of course, if she'd started a longer-term medication there would have been plenty of time for her now to be benefitting. I think we really must proceed with a long-term plan while at the same time seeking a short-term solution. I strongly doubt the 50 mg sertraline is worth using. The dose is far below whats typically effective for the things for which sertraline is effective (panic, OCD, PTSD, social anxiety), and SSRIs work poorly, if at all, for generalized anxiety. If the goal is to address PTSD (a diagnosis self-reported by pt which I cant verify but which could certainly be a factor), then we should be using a target dose in the 150-300 mg/day range. She has a past trial at 150 mg reported as ineffective. Buspirone could be a good long-term option, but the current dose is very low. It should be titrated to at least 30 mg/day for efficacy. Changing sertraline and buspirone may have benefits 4-8 weeks into the future, so we still need to consider present anxiety. In my opinion, the lorazepam is working to a noticeable degree for her anxiety at present, though it's at best partially-controlled. Her anxiety is a significant factor in her respiratory risk. For example, it's a primary factor in her not using xPAP and it leads her to insist on an excessive oxygen flow rate. By my reading of the pulmonary notes, they're not attributing hypercapnia to respiratory depression from lorazepam but rather to overoxygenation and not using xPAP. That is, more related to untreated anxiety than to the benzodiazepine. There aren't any great fast-acting anxiolytics that aren't benzodiazepines, other drugs with higher respiratory depression risk, or weird things with significant toxicity such as meprobamate ([place]), chloral hydrate, etc. Before discarding lorazepam we should carefully balance the potential risks against benefits. The risk of respiratory depression from clinical lorazepam doses is pretty low in general, but the risk of her anxiety's being a significant contributor to her respiratory seems nearly certain. Overall I spent a total of 74 minutes on the floor for this consultation assessment including review of chart records, review of test results, donning and doffing PPE for droplet precautions, direct evaluation of the patient [id number], counseling the patient, medication education with the patient, risk assessment, discussion with the psychiatric liaison nurse, and documentation in the electronic health record. (1) SIMA (generalized anxiety disorder): (2) Post traumatic stress disorder: Plan * increase sertraline to 100 mg daily, then to 150 mg in 2 days if tolerated * increase buspirone to 10 mg TID * recommend continuing lorazepam 0.5 mg QID for now * consider brief clinical conference among hospitalist, pulmonary, and psychiatric services to seek shared perspective of the degree of risk attributable to lorazepam in order to inform treatment recommendations (this could be over the [employer] messaging system) Psych History Identifying Data YAZAN MCKEON is a 63-year-old F with a history of anxiety, admitted on [] for CoVID-19. Consult is by the hospitalist service for "Anxiety benzo med recs". Chief Complaint "I don't feel well". History of Present Illness 63 y/o woman known to me from consultation 11/20/2023 and follow-up visit 2 days later. She's now admitted with CoVID-19. In discussion with Dr. Ortiz, she tells me she thinks pt's fairly low-dose lorazepam (0.5 mg QID) may be depressing her respiratory drive leading to metabolic acidosis and wonders if an alternate medication can be identified. On exam, pt does not remember me (admittedly, from 3 weeks ago). She is less distressed and anxious that when I last saw her (when she was completely overwhelmed), though there's no way for me to tell to what extent that can be attributed to the lorazepam. She is alert, oriented to person, place, month, and year but not to day or date. I tried talking with her about her need for BiPAP but she says she's "just too claustrophobic" while wearing a full-face mask. She says she "can tolerate the nose one" (which is, to a degree, news to me given that she doesn't seem to have been able to use CPAP at home with a nasal mask). I spoke with her about acclimatizing to the mask by wearing it (with the flow generator running) during the day when she's not trying to get to sleep, since that's typically much less anxiety-provoking than trying to acclimatize to wearing a mask while also trying to get to sleep as well as being able to take advantage of distractors such as TV or reading. Past Psychiatric History Previous Psych History: 6 previous psychiatric consultations here over the past 3 years Current Psychiatric Diagnosis: SIMA, possibly PTSD Previous Psych Admissions: [facility] 09/28 (opiate abuse), 09/29; also [facility] 06/20 Past Medication Trials: Pt has had documented trials of the following psychiatric medications, though the dates and doses of most are unknown and she is likely to have had trials of other medications not listed: (likely primarily for depression): duloxetine escitalopram fluoxetine sertraline (up to at least 150 mg/day) venlafaxine (likely primarily as mood stabilizer): aripiprazole gabapentin lamotrigine quetiapine (possibly alternatively or additionally as hypnotic) risperidone topiramate (ostensibly) (likely primarily as anxiolytic): clonazepam buspirone (up to at least 20 mg BID, but no documented TID trials) hydroxyzine lorazepam (likely primarily as hypnotic): mirtazapine trazodone zolpidem (intended use unclear): chlorpromazine Allergies Allergy/AdvReac Type Severity Reaction Status Date / Time aspirin Allergy Unknown TAKES Verified 12/08/23 17:47 COUMADIN salicylates AdvReac Unknown ?DUE TO Verified 12/08/23 17:47 COUMADIN? Home Medications Medication Instructions Recorded Confirmed Type albuterol sulfate 5 mg/mL(0.5 %) 2.5 mg inhalation DIRECTED PRN 08/20/22 12/08/23 History solution for nebulization Shortness Of Breath Or Wheezing albuterol sulfate 90 mcg/actuation 2 puff inhalation QID PRN sob 08/20/22 12/08/23 History aerosol inhaler omeprazole 20 mg capsule,delayed 20 mg PO AMHS 07/15/23 12/08/23 History release montelukast 10 mg tablet 10 mg PO HS #30 tabs 07/23/23 12/08/23 Rx apixaban 5 mg tablet (Eliquis) 5 mg PO Q12 11/16/23 12/08/23 History baclofen 10 mg tablet 10 mg PO TID PRN .muscle spasm 11/16/23 12/08/23 History cholecalciferol (vitamin D3) 1,250 50,000 unit PO WE 11/16/23 12/08/23 History mcg (50,000 unit) capsule furosemide 40 mg tablet 40 mg PO BID 11/16/23 12/08/23 History ipratropium 0.5 mg-albuterol 3 mg 3 ml inhalation QID PRN Shortness 11/16/23 12/08/23 History (2.5 mg base)/3 mL nebulization Of Breath Or Wheezing soln iron,carbonyl 65 mg-vitamin C 125 2 tab PO QAM 11/16/23 12/08/23 History mg tablet,delayed release (Vitron-C) metoprolol succinate 25 mg 25 mg PO QAM 11/16/23 12/08/23 History tablet,extended release 24 hr mirtazapine 30 mg tablet 30 mg PO HS 11/16/23 12/08/23 History nystatin 100,000 unit/gram topical 1 applic topical BID 11/16/23 12/08/23 History powder (Nyamyc) sertraline 50 mg tablet 50 mg PO HS 11/16/23 12/08/23 History donepezil 10 mg tablet 10 mg PO QAM #30 tabs 11/26/23 12/08/23 Rx lorazepam 0.5 mg tablet 0.5 mg PO QID #28 tabs 11/26/23 12/08/23 Rx tramadol 50 mg tablet 50 mg PO Q6H PRN pain #20 tabs 11/26/23 12/08/23 Rx buspirone 5 mg tablet 5 mg PO TID 12/08/23 12/08/23 History docusate sodium 100 mg capsule 100 mg PO BID 12/08/23 12/08/23 History gabapentin 300 mg capsule 300 mg PO TID 12/08/23 12/08/23 History Patient History Medical History (Updated 12/12/23 @ 19:24 by Edison Chappell MD) Swelling of left hand Encounter for pre-operative examination Sleep apnea mild RUFINA (dx in ) no machine currently -- pt to have another sleep study february 2023. Osteoarthritis Degenerative disc disease Urinary incontinence Peripheral neuropathy Anemia Congestive heart failure follows with [facility] cardiology (Patricia banks) Hypertension Dementia "very early stages" Alert and oriented x3. granddaughter is the caregiver of patient. Post traumatic stress disorder On home oxygen therapy continuous 3lpm via n/c. (will increase to 4lpm via n/c if needed) History of COVID-19 Spring 2020. treated at [facility] inpatient. symptoms included: sob, cough, desaturation 84-87%, congestion, headache, fatigue. no ventilator at the time. no current problems. Diarrhea started about 1 year ago -- will come and go. Chronic respiratory failure with hypoxia COPD (chronic obstructive pulmonary disease) Submucosal lesion of stomach Noted on EGD 11/06/20 Anticoagulated on Coumadin Paroxysmal A-fib feels her heart race at times. Chronic pain on daily narcotics (tramadol PRN) Morbid obesity Anxiety and depression History of stroke "embolic stroke, underlying PFO" total of 9 strokes -> last stroke ~6+years ago. damaged urinary nerve and mild left sided weakness. Surgical History Hx of lumpectomy left breast (benign) History of cataract surgery bilateral History of cardiac cath [facility] [place] - "long time ago" -- pt unsure of details. 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 Required: No Beliefs That Will Affect Care: None marital status: / Current Living Situation: Alone Current Living Situation Comment: Lives home teddy, granddaughter clarice assist patient Other Information That Helps Us Care for You: No Feels Safe at Home: Yes Safety Concerns: Feels Safe At This Time Assistive Devices: Hospital Bed, Oxygen - Continuous and Walker Physical Exam Psychiatric: Orientation: alert, oriented to person, oriented to place and cooperative; + not oriented to time (oriented to month, year, but not day or date) Eye Contact: + fair eye contact Motor Behavior: no abnormal motor movements Speech: normal rate/rhythm/volume of speech Affect: + anxious affect Mood: + anxious mood Thought Process: + concrete thought process Thought Content: reality based without delusions Homicidal Thoughts: denies homicidal thoughts Hallucinations: no auditory hallucinations and no visual hallucinations Cognition: remote memory grossly intact, attention grossly intact and language grossly intact; + recent memory not intact Estimated Intelligence: consistent with education level Insight: + limited insight Judgment: + limited judgement Vital Signs (Past 24 Hours): Last Vital Signs Temp 36.9 C 12/12/23 17:16 Pulse 78 12/12/23 17:16 Resp 18 12/12/23 17:16 BP 118/73 12/12/23 17:16 Pulse Ox 94 12/12/23 17:16 O2 Del Method Room Air 12/12/23 17:16 O2 Flow Rate 3.5 12/12/23 15:42 FiO2 35 12/12/23 10:09 Exam Statement: Physical exams were performed in the ED and by the admitting hospitalist for the purposes of medical clearance. I accept those physicals as correct and adequate and have incorporated that information into my assessment. Review of Systems Psychiatric: + abnormal sleep pattern, + anxiety, + difficulty concentrating and + confusion; no depression, no hopelessness, no suicidal ideation, no paranoia and no hallucinations Results & Data (PSY) Medications Administered Acetaminophen (Acetaminophen 500 Mg Tab) 1,000 mg PO Q8H MARY Stop: 01/09/24 01:59 Last Admin: 12/12/23 18:26 Dose: 1,000 mg Documented By: Admin: 12/12/23 10:59 Dose: 1,000 mg Documented By: Admin: 12/12/23 01:00 Dose: 1,000 mg Documented By: Admin: 12/11/23 18:33 Dose: 1,000 mg Documented By: Admin: 12/11/23 10:01 Dose: 1,000 mg Documented By: Admin: 12/11/23 02:21 Dose: 1,000 mg Documented By: Admin: 12/10/23 17:19 Dose: 1,000 mg Documented By: Admin: 12/10/23 09:28 Dose: 1,000 mg Documented By: Admin: 12/10/23 02:12 Dose: 1,000 mg Documented By: ELIZABETH Albuterol (Albut/Ipratrop 3mg/0.5mg Neb 3 Ml Vial) 3 ml NEB Q8R MARY; Protocol Stop: 01/08/24 22:59 Last Admin: 12/12/23 15:42 Dose: 3 ml Documented By: Admin: 12/12/23 09:53 Dose: 3 ml Documented By: Admin: 12/12/23 07:11 Dose: 3 ml Documented By: Admin: 12/11/23 22:01 Dose: 3 ml Documented By: Admin: 12/11/23 14:01 Dose: 3 ml Documented By: Admin: 12/11/23 07:32 Dose: 3 ml Documented By: Admin: 12/10/23 23:03 Dose: 3 ml Documented By: Admin: 12/10/23 15:33 Dose: 3 ml Documented By: Admin: 12/10/23 07:41 Dose: 3 ml Documented By: Admin: 12/09/23 22:44 Dose: 3 ml Documented By: CLINT Apixaban (Apixaban 5 Mg Tablet) 5 mg PO Q12 MARY Stop: 01/08/24 08:59 Last Admin: 12/12/23 08:18 Dose: 5 mg Documented By: Admin: 01/27/24 20:08 Dose: 5 mg Documented By: Admin: 12/11/23 09:00 Dose: 5 mg Documented By: Admin: 12/10/23 20:44 Dose: 5 mg Documented By: Admin: 12/10/23 09:32 Dose: 5 mg Documented By: Admin: 12/09/23 20:11 Dose: 5 mg Documented By: Admin: 12/09/23 09:28 Dose: 5 mg Documented By: LIV Ascorbic Acid (Ascorbic Acid 500 Mg Tab) 500 mg PO DAILY MARY Stop: 01/09/24 08:59 Last Admin: 12/12/23 08:18 Dose: 500 mg Documented By: Admin: 12/11/23 09:00 Dose: 500 mg Documented By: Admin: 12/10/23 09:32 Dose: 500 mg Documented By: Baclofen (Baclofen 10 Mg Tab) 10 mg PO TID PRN PRN Reason: .muscle spasm Stop: 01/07/24 21:52 Last Admin: 12/10/23 16:12 Dose: 10 mg Documented By: Admin: 12/10/23 04:34 Dose: 10 mg Documented By: Admin: 12/09/23 20:55 Dose: 10 mg Documented By: ELIZABETH Buspirone HCl (Buspirone 5 Mg Tab) 5 mg PO TID MARY Stop: 01/07/24 21:52 Last Admin: 12/12/23 13:45 Dose: 5 mg Documented By: Admin: 12/12/23 08:17 Dose: 5 mg Documented By: Admin: 12/11/23 20:08 Dose: 5 mg Documented By: Admin: 12/11/23 13:36 Dose: 5 mg Documented By: Admin: 12/11/23 09:00 Dose: 5 mg Documented By: Admin: 12/10/23 20:44 Dose: 5 mg Documented By: Admin: 12/10/23 13:01 Dose: 5 mg Documented By: Admin: 12/10/23 09:32 Dose: 5 mg Documented By: Admin: 12/09/23 20:11 Dose: 5 mg Documented By: Admin: 12/09/23 14:50 Dose: Not Given Documented By: Admin: 01/25/24 09:29 Dose: 5 mg Documented By: Admin: 12/08/23 22:51 Dose: 5 mg Documented By: ALEISHA Donepezil HCl (Donepezil Hcl 10 Mg Tab) 10 mg PO QAM MARY Stop: 01/08/24 08:59 Last Admin: 12/12/23 08:18 Dose: 10 mg Documented By: Admin: 12/11/23 09:00 Dose: 10 mg Documented By: Admin: 12/10/23 09:32 Dose: 10 mg Documented By: Admin: 12/09/23 09:29 Dose: 10 mg Documented By: LIV Ferrous Sulfate (Ferrous Sulfate 325 Mg Tab) 650 mg PO DAILY MARY Stop: 01/09/24 08:59 Last Admin: 12/12/23 08:17 Dose: 650 mg Documented By: Admin: 12/11/23 09:00 Dose: 650 mg Documented By: Admin: 12/10/23 09:32 Dose: 650 mg Documented By: Furosemide (Furosemide 40 Mg Tab) 40 mg PO BID17 MARY Stop: 01/10/24 08:59 Last Admin: 12/12/23 18:26 Dose: 40 mg Documented By: Admin: 12/12/23 08:18 Dose: 40 mg Documented By: Admin: 12/11/23 18:33 Dose: 40 mg Documented By: Admin: 12/11/23 09:01 Dose: 40 mg Documented By: JERAMY Gabapentin (Gabapentin 300 Mg Cap) 300 mg PO TID MARY Stop: 01/07/24 21:52 Last Admin: 12/12/23 13:45 Dose: 300 mg Documented By: Admin: 12/12/23 08:17 Dose: 300 mg Documented By: Admin: 12/11/23 20:08 Dose: 300 mg Documented By: Admin: 12/11/23 13:36 Dose: 300 mg Documented By: Admin: 12/11/23 08:59 Dose: 300 mg Documented By: Admin: 12/10/23 20:45 Dose: 300 mg Documented By: Admin: 12/10/23 13:01 Dose: 300 mg Documented By: Admin: 12/10/23 09:28 Dose: 300 mg Documented By: Admin: 12/09/23 20:11 Dose: 300 mg Documented By: Admin: 12/09/23 14:51 Dose: 300 mg Documented By: Admin: 12/09/23 09:29 Dose: 300 mg Documented By: Admin: 12/08/23 22:52 Dose: 300 mg Documented By: ALEIHSA Guaifenesin (Guaifenesin 600 Mg Tabcr) 1,200 mg PO Q12 AMRY Stop: 01/08/24 08:59 Last Admin: 12/12/23 08:19 Dose: 1,200 mg Documented By: Admin: 12/11/23 20:08 Dose: 1,200 mg Documented By: Admin: 12/11/23 08:59 Dose: 1,200 mg Documented By: Admin: 12/10/23 20:44 Dose: 1,200 mg Documented By: Admin: 12/10/23 09:28 Dose: 1,200 mg Documented By: Admin: 12/09/23 20:11 Dose: 1,200 mg Documented By: Admin: 12/09/23 09:29 Dose: 1,200 mg Documented By: LIV Dexamethasone 6 mg/ Syringe 1.5 mls @ 1 mls/min IV Q24H MARY Stop: 01/10/24 01:59 Last Admin: 12/12/23 06:42 Dose: 1 mls/min Documented By: Admin: 12/11/23 02:21 Dose: 1 mls/min Documented By: ELIZABETH Loperamide HCl (Loperamide Hcl 2 Mg Cap) 2 mg PO Q6H PRN PRN Reason: Diarrhea Stop: 01/11/24 10:52 Last Admin: 12/12/23 13:45 Dose: 2 mg Documented By: JERAMY Lorazepam (Lorazepam 0.5 Mg Tab) 0.5 mg PO QID MARY Stop: 01/07/24 21:52 Last Admin: 12/12/23 18:26 Dose: 0.5 mg Documented By: Admin: 12/12/23 13:45 Dose: 0.5 mg Documented By: Admin: 12/12/23 08:08 Dose: 0.5 mg Documented By: Admin: 12/11/23 22:37 Dose: 0.5 mg Documented By: Admin: 12/11/23 18:33 Dose: 0.5 mg Documented By: Admin: 12/11/23 13:36 Dose: 0.5 mg Documented By: DLDarryl Admin: 12/11/23 09:01 Dose: 0.5 mg Documented By: Admin: 12/10/23 20:44 Dose: 0.5 mg Documented By: AMYonas Admin: 12/10/23 17:19 Dose: 0.5 mg Documented By: Admin: 12/10/23 13:01 Dose: 0.5 mg Documented By: Admin: 12/10/23 09:26 Dose: 0.5 mg Documented By: Admin: 12/09/23 20:10 Dose: 0.5 mg Documented By: Admin: 12/09/23 17:33 Dose: 0.5 mg Documented By: Admin: 12/09/23 12:54 Dose: 0.5 mg Documented By: Admin: 12/09/23 09:27 Dose: 0.5 mg Documented By: Admin: 12/08/23 23:09 Dose: 0.5 mg Documented By: ALEISHA Melatonin (Melatonin 3 Mg Tab) 3 mg PO HS PRN PRN Reason: Sleep Stop: 01/08/24 20:23 Last Admin: 12/11/23 20:08 Dose: 3 mg Documented By: Admin: 12/10/23 20:44 Dose: 3 mg Documented By: Admin: 12/09/23 20:55 Dose: 3 mg Documented By: ELIZABETH Metoprolol Succinate (Metoprolol Succ 25mg Ext Rel Tab) 25 mg PO QAM MARY Stop: 01/08/24 08:59 Last Admin: 12/12/23 08:17 Dose: 25 mg Documented By: Admin: 12/11/23 09:00 Dose: 25 mg Documented By: Admin: 12/10/23 09:27 Dose: 25 mg Documented By: Admin: 12/09/23 09:32 Dose: 25 mg Documented By: LIV Miconazole Nitrate (Miconazole Nitrate Powder 85 Gm) 1 appln EXT TID MARY Stop: 01/09/24 08:59 Last Admin: 12/12/23 14:41 Dose: 1 appln Documented By: Admin: 12/12/23 08:19 Dose: 1 appln Documented By: Admin: 12/11/23 20:08 Dose: 1 appln Documented By: AMYonas Admin: 12/11/23 13:36 Dose: 1 appln Documented By: Admin: 12/11/23 09:01 Dose: 1 appln Documented By: Admin: 12/10/23 20:45 Dose: 1 appln Documented By: Admin: 12/10/23 13:01 Dose: 1 appln Documented By: Admin: 12/10/23 11:24 Dose: 1 appln Documented By: Montelukast Sodium (Montelukast Sodium 10 Mg Tablet) 10 mg PO [facility] Stop: 01/07/24 21:52 Last Admin: 12/11/23 20:08 Dose: 10 mg Documented By: AMYonas Admin: 12/10/23 20:44 Dose: 10 mg Documented By: Admin: 12/09/23 20:10 Dose: 10 mg Documented By: Admin: 12/08/23 22:52 Dose: 10 mg Documented By: ALEISHA Pantoprazole Sodium (Pantoprazole 40 Mg Tab) 40 mg PO [facility]; Protocol Stop: 01/07/24 21:59 Last Admin: 12/12/23 08:17 Dose: 40 mg Documented By: Admin: 12/11/23 20:08 Dose: 40 mg Documented By: AMYonas Admin: 12/11/23 08:59 Dose: 40 mg Documented By: Admin: 12/10/23 20:44 Dose: 40 mg Documented By: AMYonas Admin: 12/10/23 09:27 Dose: 40 mg Documented By: Admin: 12/09/23 20:10 Dose: 40 mg Documented By: AMYonas Admin: 12/09/23 09:32 Dose: 40 mg Documented By: Admin: 12/08/23 23:41 Dose: 40 mg Documented By: ALEISHA Sertraline HCl (Sertraline Hcl 50 Mg Tablet) 50 mg PO [facility] Stop: 01/07/24 21:52 Last Admin: 12/11/23 20:07 Dose: 50 mg Documented By: Admin: 12/10/23 20:45 Dose: 50 mg Documented By: Admin: 12/09/23 20:11 Dose: 50 mg Documented By: Admin: 12/08/23 22:51 Dose: 50 mg Documented By: ALEISHA Tramadol HCl (Tramadol Hcl 50 Mg Tablet) 50 mg PO Q6H PRN PRN Reason: Mod-Sev Pain (Scale 4-10) Stop: 01/07/24 21:52 Last Admin: 12/12/23 10:59 Dose: 50 mg Documented By: Admin: 12/12/23 01:00 Dose: 50 mg Documented By: Admin: 12/11/23 18:35 Dose: 50 mg Documented By: Admin: 12/11/23 09:01 Dose: 50 mg Documented By: Admin: 12/11/23 02:24 Dose: 50 mg Documented By: Admin: 12/10/23 20:44 Dose: 50 mg Documented By: AMYonas Admin: 12/10/23 09:29 Dose: 50 mg Documented By: Admin: 12/10/23 02:57 Dose: 50 mg Documented By: AMYonas Admin: 12/09/23 23:11 Dose: 50 mg Documented By: Admin: 12/09/23 15:52 Dose: 50 mg Documented By: Admin: 12/09/23 09:27 Dose: 50 mg Documented By: Admin: 12/08/23 23:50 Dose: 50 mg Documented By: ALEISHA Umeclidinium [place] (Umeclidinium [place] 62.5mcg/Blister 7 Puffs/Inhaler) 1 puffs INH DAILY MARY Stop: 01/09/24 08:59 Last Admin: 12/12/23 08:19 Dose: 1 puffs Documented By: Admin: 12/11/23 09:01 Dose: 1 puffs Documented By: Admin: 12/10/23 09:27 Dose: 1 puffs Documented By: Coding Level of Care Code 17716 [facility] Int Hosp Care Lvl 3 Diagnoses SIMA (generalized anxiety disorder) F41.1 Post traumatic stress disorder F43.10 Time Spent (min) 74
[2023-12-12] MEDS: ALBUT/IPRATROP 3MG/0.5MG NEB 3 ML VIAL ONE (19:41)
[2023-12-13 05:50] LABS: Hematocrit (blood only) 28.2 % (37.0-47.0); Hemoglobin 9.1 g/dl (12.0-16.0); Mean Corpuscular Hgb Conc 32.3 g/dL (32.0-36.0); Mean Corpuscular Volume 95.9 fL (80.0-100.0); Mean Platelet Volume 8.8 fL (9.4-12.4); Nucleated RBC # (auto) 0.12 K/uL (0.00-0.12); Nucleated RBC % (auto) 1.1 %; Platelet Count 366 K/uL (130-400); RDW Coefficient of Variation 23.4 % (11.5-14.5); RDW Standard Deviation 82.4 fL (36.4-46.3); Red Blood Count 2.94 M/uL (4.20-5.40); White Blood Count 11.17 K/ul (4.8-10.8)
[2023-12-13 06:17] LABS: BUN Creatinine Ratio 21.9 (10-20); Calcium 8.1 mg/dl (8.6-10.3); Creatinine Clr Calc Pharmacy 106.1 ml/min; Est GFR (African American) 101.6 ml/min; Est GFR (Non-African American) 87.7 ml/min; Magnesium 1.7 mg/dl (1.7-2.4); Phosphorus 2.7 mg/dl (2.5-4.9); Potassium 3.7 mmol/L (3.5-5.1)
[2023-12-13] MEDS: ALBUT/IPRATROP 3MG/0.5MG NEB 3 ML VIAL ONE (07:02)
[2023-12-13 09:43] LABS: Appearance Urine Clear (Clear); Bilirubin Urine Negative (Negative); Blood Urine Trace-lysed (Negative); Color Urine Yellow; Glucose Urine UA Trace (Negative); Ketones Urine Negative (Negative); Leukocyte Esterase Urine 2+ (Negative); Nitrite Urine Negative (Negative); Protein Urine Negative (Negative); Specific Gravity Urine 1.015 (1.000-1.030); Urobilinogen Urine Negative (Negative); pH Urine 6.5 (4.5-7.5)
[2023-12-13 09:52] LABS: Epithelial Cell Urine >30 /lpf (0-5)
[2023-12-13 09:53] LABS: Bacteria Urine 1+ (Negative); RBC Urine 0-4 /hpf (0-4); WBC Urine >30 /hpf (0-5)
--- NOTE | 2023-12-13 10:22 | Communication Note ---
Date of Service: December 13, 2023 Earlier this morning the hospitalist, furnace converter, and I conferenced via secure messaging about pt, specifically the question of the degree of risk att endant on use of low-dose benzodiazepines vs. her chronic, severe, and [id number] anxiety. I subsequently located a note from that furnace converter from July 2023 saying "Would be very reluctant to use narcotics, benzodiazepines, or other respiratory suppressant medications given the patient's morbid obesity, hypercarbia, and propensity for hypercarbic respiratory failure." This leaves us in something of a quandary. Pt has never, as far as I can tell, previously used buspirone at a dose (at least 30 mg/day) and in a manner (TID dosing) that I'd expect to work. We can (and should) easily rectify that, but this will involve a significant delay to efficacy of 2-4 weeks. Pt has apparently taken sertraline in the past at a dose of 150 mg/day, which is conceivably therapeutic but not for generalized anxiety disorder and the only benefit for which she was looking was for SIMA. She (probably) has PTSD for which that medication should be effective (at a dose in the range of 150-300 mg/day) with a delay to noticeable benefit of 4-8 weeks. We should be pursuing that, as well. The major issue is pt's focus on current symptoms (which is understandable) with a focus on short-term benefit specifically with lorazepam to the exclusion of considering potentially-superior long-term treatment options. At this point, any attempt at medication education is met with her announcement that she has dementia (true enough) and "can't understand any of that stuff". During her previous stay the hospitalist team did finally manage to get her off zolpidem despite her objections and she's certainly doing fine without it. Probably the best non-benzodiazepine rapidly-acting anxiolytic is hydroxyzine. Pt has tried this numerous times without benefit, but it might be worth another try. I usually avoid using antipsychotic medications for anxiety, for which some such as quetiapine are certainly effective, due to their significant risks including potentially irreversible neurological side effects. Given this situation, I spoke with pt yesterday about quetiapine for anxiety, but she told me she'd taken doses in the 400-600 mg/day range that "did nothing", so did not pursue that. Recommendations: * at the recommendation of pulmonology, taper lorazepam by 0.5 mg every 2 days (i.e., 0.5 mg TID x 2 days, 0.25 mg QID x 2 days, 0.25 mg BID x 2 days, then stop) * pt may benefit from hydroxyzine 25 mg PO Q4H PRN anxiety; watch for antimuscarinic side effects and excessive sedation * I continue to urge increasing buspirone to 10 mg TID * I continue to recommend increasing sertraline to 100 mg daily, then to 150 mg in 2 days if tolerated *
[2023-12-13] MEDS: cefTRIAXone SODIUM 2,000 MG in DEXTROSE 5 % MINI-B 50 ML IV SCH (12:11)
[2023-12-13] MEDS: busPIRone 5 MG TAB PO SCH (13:08)
[2023-12-13] MEDS: LORazepam 0.5 MG TAB PO SCH (13:08)
--- NOTE | 2023-12-13 17:40 | Hospitalist Progress Note ---
Date of Service December 13, 2023 Assessment & Plan (1) COVID-19: (2) COPD exacerbation: (3) Chronic respiratory failure with hypoxia: (4) Acute on chronic diastolic (congestive) heart failure: (5) Hypophosphatemia: (6) PAF (paroxysmal atrial fibrillation): (7) Anxiety and depression: (8) Dementia: Plan: Continue donezepil (9) Chronic pain: (10) Chronic anemia: Plan Patient is a 63yoF with PMHx significant for COPD, chronic hypoxic respiratory failure on chronic 4-5 L oxygen, paroxysmal atrial fibrillation anticoagulated with Eliquis, chronic diastolic heart failure, anxiety, depression, dementia, chronic pain and chronic anemia who presented to ER with URI symptoms in the setting of a covid infection. Acute on chronic hypoxic hypercapnic respiratory failure COVID-19 COPD exacerbation In ER T: 37.6 C, P: 82, R: 15, BP 106/65, 99% on 5 L nasal cannula WBC wnl, lactate and procalcitonin WNL vbg: pH: 7.29, pCO2: 73, HCO3: 35 CXR: No acute disease but does note cardiomegaly CT chest PE protocol showing no acute changes, no PE Blood Cx x 2 NGTD Sputum Cx pending In ER empirically treated with cefepime, received hour-long nebulizer, Solu- Medrol 125 mg, IV Tylenol, Mucinex Treated with Solu-Medrol 40 mg Q8H for COPD exacerbation, tapered down as tolerated before switching to dexamethasone per Pulm recs Scheduled duonebs, incentive spirometry, flutter valve, Mucinex and other supportive measures for covid Continue Zithromax 500mg daily for 3 days Pt requires bipap support based on vbg, states cannot tolerate. Respiratory contacted, pulm consulted- appreciate recs. Continue bipap as tolerated (strongly recommended and pt aware, reiterated by pulm and respiratory), AM VBG 12/10- VBG improved today as pt used bipap overnight. Agreeable to using again tonight. Per pulm, can switch to Dexamethasone for covid-19 support, avoid hyperoxygenation. Continue bipap use. Pulm recommending repeat psych consult to discuss her chronic use of benzos which can suppress respiratory drive as well. Appreciate recs 12/11- VBG a little worse than the day before, pt notes she used the bipap overnight. Agreeable to using during the day today after another lorin discussion. Psychiatry consult placed as chronic benzo use likely playing a factor in her respiratory status but pt remains extremely anxious, appreciate further recs. Continue Dexamethasone, bipap 12/12- VBG improved significantly with use of bipap throughout the day before. Continue with IV Dexamethasone for 5 days/until d/c, whichever is sooner 12/13-Stable symptoms, continue with Dexamethasone Acute on chronic diastolic (congestive) heart failure Cardiomegaly BNP: 354, trop wnl Chest xray noting cardiomegaly CT chest PE protocol no acute changes, no PE Last echo 08/2023- noted EF 65-70%, mild LVH, Grade 1 diastolic dysfunction, mild tricuspid regurg, no pulm HTN Repeat echo noting LVH, EF 60-65% In ER given 40 mg Lasix IV. Paris catheter placed and patient starting to diurese Monitor I's and O's, daily weights (Home dose of lasix was 40mg MWF & increased to 40mg BID on 12/06/23) Monitor response of diuresis, likely will need further lasix doses 12/10- pt restarted on home lasix dose 40mg BID 12/11- continue lasix, monitor I&Os, daily weights 12/12 stable, weight down from 146 on admission to 138 today 12/13- stable Chest Pain Pt stated she was having chest pain on 12/[address] reviewed with no acute changes Pt very anxious at that time, given her Ativan dose Continue to monitor Remains stable Iron Deficiency Anemia Chronic anemia History of GI bleed in 07/2023 History of chronic anemia. History iron deficiency anemia H/H: 8.7 on admission, down from 9.6 on 11/26/2023 Iron level of 13, given IV Venofer, continue iron supplement at this time Folate and B12 levels currently wnl Continue to monitor PCP follow up Hypophosphatemia Phosphate: 1.9 on admission Replete as needed PAF (paroxysmal atrial fibrillation) On metoprolol for rate control Anticoagulated on Eliquis Continue Eliquis and metoprolol with holding parameters Anxiety and depression Continue sertraline, buspirone, lorazepam 12/10- consult placed to psych once more for lorazepam reevaluation in setting of respiratory issues noted above. 12/11- awaiting further psych recs, appreciated 12/12- awaiting further psych recs as her scheduled lorazepam is further worsening her respiratory acidosis for which bipap is absolutely needed (vs. a tracheostomy per pulm) and pt struggles to use the bipap. However, with her severe anxiety, alternative treatment is needed . Appreciate recs. Dementia Continue donepezil Chronic pain Reported chronic left hip and left leg pain LLE negative for DVT on doppler US Continue gabapentin, baclofen and tramadol as needed Scheduled Tylenol for now Continue other home meds as ordered. Diet:HH/Low sodium DVT Prophylaxis:On Eliquis Dispo: PT/OT orders placed- recommending rehab, returning to [facility] once medically stable Admission and Anticipated Discharge Date Admission Date: December 08, 2023 Subjective Pt was seen in the AM. Noted that she was still having diarrhea. [place] like she was still SOB. Discussion with psychiatry and pulm- decision to wean lorazepam. Review of Systems Review of Systems: All systems reviewed & are unremarkable except as noted in Subjective Physical Exam Physical Exam: General: Alert, orientedx3. Psych: Appropriate mood and affect but anxious at times Neuro: difficulty with movements in bed HEENT: NC/AT, NC in nares CV: RRR Resp: Breath sounds coarse bilaterally, scattered wheezes bilaterally Abdomen: Soft Extremities: Edema in lower extremities bilaterally. Results & Data Results & Data Vital Signs (Past 12 Hours) Vital Signs Temp Pulse Pulse Resp BP Pulse Ox O2 Del Method 12/13/23 11:12 36.8 C 78 20 108/68 92 Nasal Cannula 12/13/23 08:58 81 12/13/23 08:55 37.2 C 87 18 106/67 Room Air 12/13/23 07:02 98 H 18 87 L Nasal Cannula 12/13/23 04:11 74 18 91 Nasal Cannula 12/13/23 03:34 71 14 90 12/13/23 03:29 36.7 C 75 20 111/69 94 Nasal Cannula 12/12/23 23:40 75 19 95 12/12/23 23:24 77 O2 Flow Rate FiO2 12/13/23 11:12 4.0 12/13/23 08:58 12/13/23 08:55 12/13/23 07:02 3 12/13/23 04:11 3 12/13/23 03:34 35 12/13/23 03:29 3 12/12/23 23:40 30 12/12/23 23:24
[2023-12-13] MEDS ORDERED: SODIUM CHLORIDE 0.65% NA SOLN 45 ML (OCEAN) PRN (17:50)
[2023-12-13] MEDS: SERTRALINE HCL 100 MG TABLET PO SCH (21:52)
[2023-12-14 05:18] LABS: Hemoglobin 9.2 g/dl (12.0-16.0); Mean Corpuscular Hemoglobin 30.4 pg (25.0-34.0); Mean Corpuscular Hgb Conc 30.7 g/dL (32.0-36.0); Mean Platelet Volume 8.9 fL (9.4-12.4); Nucleated RBC # (auto) 0.09 K/uL (0.00-0.12); Platelet Count 419 K/uL (130-400); RDW Coefficient of Variation 23.5 % (11.5-14.5); Red Blood Count 3.03 M/uL (4.20-5.40); White Blood Count 9.46 K/ul (4.8-10.8)
[2023-12-14 05:26] LABS: BUN Creatinine Ratio 20.8 (10-20); Calcium 7.5 mg/dl (8.6-10.3); Creatinine Clr Calc Pharmacy 100.6 ml/min; Est GFR (African American) 95.2 ml/min; Est GFR (Non-African American) 82.2 ml/min; Magnesium 1.7 mg/dl (1.7-2.4); Phosphorus 2.6 mg/dl (2.5-4.9); Potassium 3.5 mmol/L (3.5-5.1)
[2023-12-14 08:12] LABS: Base Excess VBG 16.9 mEq/L; HCO3 VBG 44 mmol/L; Oxygen Saturation VBG 92.3 %; PCO2 VBG 62 mmHg (38-50); PO2 VBG 60 mmHg; pH VBG 7.46 (7.36-7.41)
--- NOTE | 2023-12-14 13:00 | Hospitalist Progress Note ---
Date of Service December 14, 2023 Assessment & Plan (1) COVID-19: (2) COPD exacerbation: (3) Chronic respiratory failure with hypoxia: (4) Acute on chronic diastolic (congestive) heart failure: (5) Hypophosphatemia: (6) PAF (paroxysmal atrial fibrillation): (7) Anxiety and depression: (8) Dementia: (9) Chronic pain: (10) Chronic anemia: Plan Patient is a 63yoF with PMHx significant for COPD, chronic hypoxic respiratory failure on chronic 4-5 L oxygen, paroxysmal atrial fibrillation anticoagulated with Eliquis, chronic diastolic heart failure, anxiety, depression, dementia, chronic pain and chronic anemia who presented to the ER with URI symptoms in the setting of a covid infection. Acute on chronic hypoxic hypercapnic respiratory failure COVID-19 COPD exacerbation In ER T: 37.6 C, P: 82, R: 15, BP 106/65, 99% on 5 L nasal cannula WBC wnl, lactate and procalcitonin WNL vbg: pH: 7.29, pCO2: 73, HCO3: 35 CXR: No acute disease but does note cardiomegaly CT chest PE protocol showing no acute changes, no PE Blood Cx x 2 NGTD Sputum Cx no sig growth In ER empirically treated with cefepime, received hour-long nebulizer, Solu- Medrol 125 mg, IV Tylenol, Mucinex Treated with Solu-Medrol 40 mg Q8H for COPD exacerbation, tapered down as tolerated before switching to dexamethasone per Pulm recs Scheduled duonebs, incentive spirometry, flutter valve, Mucinex and other supportive measures for covid Continue Zithromax 500mg daily for 3 days Pt requires bipap support based on vbg, states cannot tolerate. Respiratory contacted, pulm consulted- appreciate recs. Continue bipap as tolerated (strongly recommended and pt aware, reiterated by pulm and respiratory), AM VBG 12/10- VBG improved today as pt used bipap overnight. Agreeable to using again tonight. Per pulm, can switch to Dexamethasone for covid-19 support, avoid hyperoxygenation. Continue bipap use. Pulm recommending repeat psych consult to discuss her chronic use of benzos which can suppress respiratory drive as well. Appreciate recs 12/11- VBG a little worse than the day before, pt notes she used the bipap overnight. Agreeable to using during the day today after another lorin discussion. Psychiatry consult placed as chronic benzo use likely playing a fac tor in her respiratory status but pt remains extremely anxious, appreciate further recs. Continue Dexamethasone, bipap 12/12- VBG improved significantly with use of bipap throughout the day before. Co ntinue with IV Dexamethasone for 5 days/until d/c, whichever is sooner 12/13-Stable symptoms, continue with Dexamethasone 12/14- stable, continue with IV Dex for 1 more day. Encourage bipap use. Patienceurn al pulse ox study ordered with AM ABG. Follow in AM. Acute on chronic diastolic (congestive) heart failure Cardiomegaly BNP: 354, trop wnl Chest xray noting cardiomegaly CT chest PE protocol no acute changes, no PE Last echo 08/2023- noted EF 65-70%, mild LVH, Grade 1 diastolic dysfunction, mild tricuspid regurg, no pulm HTN Repeat echo noting LVH, EF 60-65% In ER given 40 mg Lasix IV. Paris catheter placed and patient starting to diurese Monitor I's and O's, daily weights (Home dose of lasix was 40mg MWF & increased to 40mg BID on 12/06/23) Monitor response of diuresis, likely will need further lasix doses 12/10- pt restarted on home lasix dose 40mg BID 12/11- continue lasix, monitor I&Os, daily weights 12/12 stable, weight down from 146 on admission to 138 today 12/13- stable 12/14- weight stable, continue home lasix Chest Pain Pt stated she was having chest pain on 12/[address] reviewed with no acute changes Pt very anxious at that time, given her Ativan dose Continue to monitor Remains stable Iron Deficiency Anemia Chronic anemia History of GI bleed in 07/2023 History of chronic anemia. History iron deficiency anemia H/H: 8.7 on admission, down from 9.6 on 11/26/2023 Iron level of 13, given IV Venofer, continue iron supplement at this time Folate and B12 levels currently wnl Continue to monitor PCP follow up Hypophosphatemia Phosphate: 1.9 on admission Replete as needed PAF (paroxysmal atrial fibrillation) On metoprolol for rate control Anticoagulated on Eliquis Continue Eliquis and metoprolol with holding parameters Anxiety and depression Continue sertraline, buspirone, lorazepam 12/10- consult placed to psych once more for lorazepam reevaluation in setting of respiratory issues noted above. 12/11- awaiting further psych recs, appreciated 12/12- awaiting further psych recs as her scheduled lorazepam is further worsening her respiratory acidosis for which bipap is absolutely needed (vs. a tracheostomy per pulm) and pt struggles to use the bipap. However, with her severe anxiety, alternative treatment is needed . Appreciate recs. 12/13-case discussed with pulm and Psych. Psych recs in chart: increase seroquel to 100mg daily for 2 days then if tolerates increase to 150mg. Increase buspar to 10mg TID. Wean lorazepam by 0.5 mg every 2 days (i.e., 0.5 mg TID x 2 days, 0.25 mg QID x 2 days, 0.25 mg BID x 2 days, then stop). 12/14- day 2 today of increased seroquel at 100mg, tolerating. Day two of lorazepam of 0.5mg TID. Tomorrow 12/15- increase seroquel to 150mg and decrease lorazepam to 0.25mg QID for 2 days per psychiatry recs. Dementia Continue donepezil Chronic pain Reported chronic left hip and left leg pain LLE negative for DVT on doppler US Continue gabapentin, baclofen and tramadol as needed Scheduled Tylenol for now Continue other home meds as ordered. Diet:HH/Low sodium DVT Prophylaxis:On Eliquis Dispo: PT/OT orders placed- recommending rehab, returning to [facility] once medically stable Admission and Anticipated Discharge Date Admission Date: December 08, 2023 Review of Systems Review of Systems: All systems reviewed & are unremarkable except as noted in Subjective Physical Exam Physical Exam: General: Alert, orientedx3. Psych: anxious at times Neuro: difficulty with movements in bed HEENT: NC/AT, NC in nares CV: RRR Resp: Breath sounds coarse bilaterally, scattered wheezes bilaterally Abdomen: Soft Extremities: Edema in lower extremities bilaterally. Results & Data Results & Data Vital Signs (Past 12 Hours) Vital Signs Temp Pulse Resp BP Pulse Ox O2 Del Method O2 Flow Rate 12/14/23 11:10 36.6 C 81 18 119/66 94 Nasal Cannula 6.0 01/30/24 08:00 Room Air, Nasal Cannula 4 12/14/23 08:00 37.3 C 93 H 20 137/78 93 Nasal Cannula 6.0 12/14/23 07:51 91 H 20 91 Nasal Cannula 6 12/14/23 05:12 88 19 90 Nasal Cannula 4 12/14/23 02:38 37.1 C 81 20 136/76 93 Nasal Cannula 4
[2023-12-15 06:11] LABS: Base Excess ABG 20.3 mEq/L (-9-1.8); HCO3 ABG 48 mmol/L (19-24); Oxygen Saturation ABG 96.9 % (90-95); PCO2 ABG 64 mmHg (35-46); PO2 ABG 79 mmHg (80-95); pH ABG 7.48 (7.35-7.45)
[2023-12-15 06:25] LABS: Hematocrit (blood only) 28.4 % (37.0-47.0); Hemoglobin 9.2 g/dl (12.0-16.0); Mean Corpuscular Hemoglobin 30.9 pg (25.0-34.0); Mean Corpuscular Hgb Conc 32.4 g/dL (32.0-36.0); Mean Corpuscular Volume 95.3 fL (80.0-100.0); Mean Platelet Volume 8.8 fL (9.4-12.4); Nucleated RBC # (auto) 0.02 K/uL (0.00-0.12); Nucleated RBC % (auto) 0.2 %; Platelet Count 466 K/uL (130-400); RDW Coefficient of Variation 22.5 % (11.5-14.5); RDW Standard Deviation 77.9 fL (36.4-46.3); Red Blood Count 2.98 M/uL (4.20-5.40); White Blood Count 8.46 K/ul (4.8-10.8)
[2023-12-15 06:35] LABS: BUN Creatinine Ratio 26.2 (10-20); Calcium 8.5 mg/dl (8.6-10.3); Est GFR (African American) 109.5 ml/min; Est GFR (Non-African American) 94.5 ml/min; Magnesium 1.9 mg/dl (1.7-2.4); Potassium 3.8 mmol/L (3.5-5.1)
[2023-12-15 07:14] LABS: Allen Test Pos (Pos)
[2023-12-15] MEDS: ERGOCALCIFEROL 1250 MCG (50,000 UNITS) CAP PO SCH (09:44)
--- NOTE | 2023-12-15 10:03 | Hospitalist Progress Note ---
Date of Service December 15, 2023 Assessment & Plan (1) COVID-19: (2) COPD exacerbation: (3) Chronic respiratory failure with hypoxia: (4) Acute on chronic diastolic (congestive) heart failure: (5) Hypophosphatemia: (6) PAF (paroxysmal atrial fibrillation): (7) Anxiety and depression: (8) Dementia: (9) Chronic pain: (10) Chronic anemia: Plan Patient is a 63yoF with PMHx significant for COPD, chronic hypoxic respiratory failure on chronic 4-5 L oxygen, paroxysmal atrial fibrillation anticoagulated with Eliquis, chronic diastolic heart failure, anxiety, depression, dementia, chronic pain and chronic anemia who presented to the ER with URI symptoms in the setting of a covid infection. Acute on chronic hypoxic hypercapnic respiratory failure COVID-19 COPD exacerbation In ER T: 37.6 C, P: 82, R: 15, BP 106/65, 99% on 5 L nasal cannula WBC wnl, lactate and procalcitonin WNL vbg: pH: 7.29, pCO2: 73, HCO3: 35 CXR: No acute disease but does note cardiomegaly CT chest PE protocol showing no acute changes, no PE Blood Cx x 2 NGTD Sputum Cx no sig growth In ER empirically treated with cefepime, received hour-long nebulizer, Solu- Medrol 125 mg, IV Tylenol, Mucinex Treated with Solu-Medrol 40 mg Q8H for COPD exacerbation, tapered down as tolerated before switching to dexamethasone per Pulm recs Scheduled duonebs, incentive spirometry, flutter valve, Mucinex and other supportive measures for covid Continued Zithromax 500mg daily for 3 days 12/15 - reports sputum production. will repeat sputum cultx. Breathing not improved per pt. She has rhonchi and wheezes on exam, will repeat CXR. Pt requires bipap support based on vbg, states cannot tolerate. Respiratory contacted, pulm consulted- appreciate recs. Continue bipap as tolerated (strongly recommended and pt aware, reiterated by pulm and respiratory), AM VBG 12/10- VBG improved today as pt used bipap overnight. Agreeable to using again tonight. Per pulm, can switch to Dexamethasone for covid-19 support, avoid hyperoxygenation. Continue bipap use. Pulm recommending repeat psych consult to discuss her chronic use of benzos which can suppress respiratory drive as well. Appreciate recs 12/11- VBG a little worse than the day before, pt notes she used the bipap ov adrienneight. Agreeable to using during the day today after another lorin discussion. Psychiatry consult placed as chronic benzo use likely playing a factor in her respiratory status but pt remains extremely anxious, appreciate further recs. Continue Dexamethasone, bipap 12/12- VBG improved significantly with use of bipap throughout the day before. Continue with IV Dexamethasone for 5 days/until d/c, whichever is sooner 12/13-Stable symptoms, continue with Dexamethasone 12/14- stable, continue with IV Dex for 1 more day. Encourage bipap use. Nocturnal pulse ox study ordered with AM ABG. Follow in AM. 12/15 - Rx for bipap signed Acute on chronic diastolic (congestive) heart failure Cardiomegaly BNP: 354, trop wnl Chest xray noting cardiomegaly CT chest PE protocol no acute changes, no PE Last echo 08/2023- noted EF 65-70%, mild LVH, Grade 1 diastolic dysfunction, mild tricuspid regurg, no pulm HTN Repeat echo noting LVH, EF 60-65% In ER given 40 mg Lasix IV. Herrera catheter placed and patient starting to diurese Monitor I's and O's, daily weights (Home dose of lasix was 40mg MWF & increased to 40mg BID on 12/06/23) Monitor response of diuresis, likely will need further lasix doses 12/10- pt restarted on home lasix dose 40mg BID 12/11- continue lasix, monitor I&Os, daily weights 12/12 stable, weight down from 146 on admission to 138 today 12/13- stable 12/14- weight stable, continue home lasix Chest Pain Pt stated she was having chest pain on 12/[address] reviewed with no acute changes Pt very anxious at that time, given her Ativan dose Continue to monitor Remains stable UTI Pt reported urinary symptoms and UA/ ucultx were obtained Herrera placed on admission sample questionable however positive for Kleb aerogenes and E. faecium Pt reports suprapubic tenderness Discussed with pt that ideally we would remove herrera at this time, and repeat urine collection, she is very upset and cries at possibility of removing herrera. Also discussed that catheter puts her in risk of infection, however she absolutely does not wish for it to be removed. Will start treatment w/ cefepime and dapto - discussed w/ pharmacy and pt's RN in detail Iron Deficiency Anemia Chronic anemia History of GI bleed in 07/2023 History of chronic anemia. History iron deficiency anemia H/H: 8.7 on admission, down from 9.6 on 11/26/2023 Iron level of 13, given IV Venofer, continue iron supplement at this time Folate and B12 levels currently wnl Continue to monitor PCP follow up Hypophosphatemia Phosphate: 1.9 on admission Replete as needed PAF (paroxysmal atrial fibrillation) On metoprolol for rate control Anticoagulated on Eliquis Continue Eliquis and metoprolol with holding parameters Anxiety and depression Continue sertraline, buspirone, lorazepam 12/10- consult placed to psych once more for lorazepam reevaluation in setting of respiratory issues noted above. 12/11- awaiting further psych recs, appreciated 12/12- awaiting further psych recs as her scheduled lorazepam is further worsening her respiratory acidosis for which bipap is absolutely needed (vs. a tracheostomy per pulm) and pt struggles to use the bipap. However, with her severe anxiety, alternative treatment is needed . Appreciate recs. 12/13-case discussed with pulm and Psych. Psych recs in chart: increase seroquel to 100mg daily for 2 days then if tolerates increase to 150mg. Increase buspar to 10mg TID. Wean lorazepam by 0.5 mg every 2 days (i.e., 0.5 mg TID x 2 days, 0.25 mg QID x 2 days, 0.25 mg BID x 2 days, then stop). 12/14- day 2 today of increased seroquel at 100mg, tolerating. Day two of lorazepam of 0.5mg TID. 12/15- increase seroquel to 150mg and decrease lorazepam to 0.25mg QID for 2 days per psychiatry recs. In addition, hydroxyzine started by psychiatry as well. Dementia Continue donepezil Chronic pain chronic left hip and left leg pain LLE negative for DVT on doppler US Continue gabapentin, baclofen and tramadol as needed Scheduled Tylenol for now Continue other home meds as ordered. Diet:HH/Low sodium DVT Prophylaxis:On Eliquis Dispo: PT/OT orders placed- recommending rehab, returning to [facility] once medically stable Admission and Anticipated Discharge Date Admission Date: December 08, 2023 Subjective Pt was seen in follow up of covid 19 , anxiety (seen by psych), need for poss. bipap (seen by pulm) laying in bed, on suppl. O2. Previously discussed with psychiatry and pulm- decision to wean lorazepam. Urine cultx positive - pt has currently Herrera placed since admission - she does not wish for it to be removed and starts to cry when I ask her about that. Discussed the risk of infection and poss. current UTI she still does not wish for it to be removed. Discussed in detail w/ RN and also w/ pharmacy. Pt seen by psychiatry re: anxiety Pt reports sputum production, previous sputum cultx negat., will repeat CXR and sputum cultx. She does not feel much improved since her admission. Review of Systems Review of Systems: All systems reviewed & are unremarkable except as noted in Subjective Physical Exam Physical Exam: General: morbidly obese F in NAD, on suppl. O2 Psych: anxious at times Neuro: difficulty with movements in bed HEENT: NC/AT, NC -suppl. O2 CV: RRR Resp: Breath sounds coarse bilaterally, scattered wheezes bilaterally Abdomen: Soft, obese, + suprapubic tenderness, + bowel sounds Extremities: Edema in lower extremities bilaterally. Results & Data Results & Data Vital Signs (Past 12 Hours) Vital Signs Temp Pulse Pulse Resp BP Pulse Ox Pulse Ox 12/15/23 07:35 79 20 95 12/15/23 03:35 61 93 12/15/23 02:51 36.5 C 73 20 124/68 94 12/14/23 23:41 36.8 C 74 16 114/69 96 12/14/23 23:25 81 18 97 12/14/23 23:05 81 95 12/14/23 22:08 O2 Del Method O2 Del Method O2 Flow Rate O2 Flow Rate 12/15/23 07:35 Nasal Cannula 6 12/15/23 03:35 Nasal Cannula 5 12/15/23 02:51 Nasal Cannula 4 12/14/23 23:41 BiPAP 12/14/23 23:25 Nasal Cannula 5 12/14/23 23:05 Nasal Cannula 5 12/14/23 22:08 Nasal Cannula 4 Laboratory Results 12/15/23 Range/Units 06:00 WBC 8.46 (4.8-10.8) K/ul RBC 2.98 L (4.20-5.40) M/uL Hgb 9.2 L (12.0-16.0) g/dl Hct 28.4 L (37.0-47.0) % MCV 95.3 (80.0-100.0) fL MCH 30.9 (25.0-34.0) pg MCHC 32.4 (32.0-36.0) g/dL RDW Std Deviation 77.9 H (36.4-46.3) fL RDW Coeff of Ursula 22.5 H (11.5-14.5) % Plt Count 466 H (130-400) K/uL MPV 8.8 L (9.4-12.4) fL Absolute Nucleated RBC 0.02 (0.00-0.12) K/uL Nucleated RBC % (auto) 0.2 % ABG pH 7.48 H (7.35-7.45) ABG pCO2 64 H (35-46) mmHg ABG pO2 79 L (80-95) mmHg ABG HCO3 48 H (19-24) mmol/L ABG O2 Saturation 96.9 H (90-95) % ABG Base Excess 20.3 H (-9-1.8) mEq/L [place] Test Pos (Pos) Oxygen Given 5L Sodium 139 (136-145) mmol/L Potassium 3.8 (3.5-5.1) mmol/L Chloride 94 L (98-107) mmol/L Carbon Dioxide 40 H (21-32) mmol/L Anion Gap 5 (3-11) BUN 17 (6-23) mg/dl Creatinine 0.65 (0.6-1.2) mg/dl Est Cr Clr Drug Dosing 119.0 ml/min Est GFR ( Amer) 109.5 ml/min Est GFR (Non-Af Amer) 94.5 ml/min BUN/Creatinine Ratio 26.2 H (10-20) Glucose 130 H (70-99(Fasting)) mg/dl Calcium 8.5 L (8.6-10.3) mg/dl Phosphorus 3.0 (2.5-4.9) mg/dl Magnesium 1.9 (1.7-2.4) mg/dl Medications Administered Current Inpatient Medications Acetaminophen (Acetaminophen 500 Mg Tab) 1,000 mg PO Q8H [facility] Stop: 01/09/24 01:59 Last Admin: 12/15/23 09:47 Dose: 1,000 mg Albuterol (Albut/Ipratrop 3mg/0.5mg Neb 3 Ml Vial) 3 ml NEB Q8R [facility]; Protocol Stop: 01/08/24 22:59 Last Admin: 12/15/23 07:34 Dose: 3 ml Apixaban (Apixaban 5 Mg Tablet) 5 mg PO Q12 [facility] Stop: 01/08/24 08:59 Last Admin: 12/15/23 09:44 Dose: 5 mg Ascorbic Acid (Ascorbic Acid 500 Mg Tab) 500 mg PO DAILY [facility] [place] Stop: 01/09/24 08:59 Last Admin: 12/15/23 09:45 Dose: 500 mg Baclofen (Baclofen 10 Mg Tab) 10 mg PO TID PRN PRN Reason: .muscle spasm Stop: 01/07/24 21:52 Last Admin: 12/15/23 09:46 Dose: 10 mg Buspirone HCl (Buspirone 5 Mg Tab) 10 mg PO TID [facility] Stop: 01/12/24 13:59 Last Admin: 12/15/23 09:43 Dose: 10 mg Donepezil HCl (Donepezil Hcl 10 Mg Tab) 10 mg PO QAM [facility] Stop: 01/08/24 08:59 Last Admin: 12/15/23 09:45 Dose: 10 mg Ergocalciferol (Ergocalciferol 50,000 Units 1250 Mcg Cap) 50,000 units PO Q7D@0900 [facility] Stop: 01/14/24 08:59 Last Admin: 12/15/23 09:44 Dose: 50,000 units Ferrous Sulfate (Ferrous Sulfate 325 Mg Tab) 650 mg PO DAILY [facility] Stop: 01/09/24 08:59 Last Admin: 12/15/23 09:46 Dose: 650 mg Furosemide (Furosemide 40 Mg Tab) 40 mg PO BID17 [facility] Stop: 01/10/24 08:59 Last Admin: 12/15/23 09:39 Dose: 40 mg Gabapentin (Gabapentin 300 Mg Cap) 300 mg PO TID [facility] [place] Stop: 01/07/24 21:52 Last Admin: 12/15/23 09:36 Dose: 300 mg Guaifenesin (Guaifenesin 600 Mg Tabcr) 1,200 mg PO Q12 [facility] Stop: 01/08/24 08:59 Last Admin: 12/15/23 09:39 Dose: 1,200 mg Hydroxyzine HCl (Hydroxyzine Hcl 25 Mg Tab) 25 mg PO Q4H PRN PRN Reason: Anxiety Stop: 01/12/24 11:08 Dexamethasone 6 mg/ Syringe 1.5 mls @ 1 mls/min IV Q24H [facility] Stop: 01/10/24 01:59 Last Admin: 12/15/23 06:15 Dose: 1 mls/min Ceftriaxone Sodium 2,000 mg/ (Dextrose) 50 mls @ 100 mls/hr IV Q24H [facility]; Protocol Stop: 12/23/23 10:29 Last Admin: 12/15/23 09:56 Dose: 100 mls/hr Lactobacillus Acidophilus (Advanced Probiotic 1250 Mg Capsule) 2 cap PO DAILY [facility] Stop: 01/14/24 10:14 Loperamide HCl (Loperamide Hcl 2 Mg Cap) 2 mg PO Q6H PRN PRN Reason: Diarrhea Stop: 01/11/24 10:52 Last Admin: 12/13/23 21:50 Dose: 2 mg Lorazepam (Lorazepam 0.5 Mg Tab) 0.5 mg PO TID [facility] Stop: 01/12/24 13:59 Last Admin: 12/15/23 09:48 Dose: 0.5 mg Melatonin (Melatonin 3 Mg Tab) 3 mg PO HS PRN PRN Reason: Sleep Stop: 01/08/24 20:23 Last Admin: 12/14/23 21:43 Dose: 3 mg Metoprolol Succinate (Metoprolol Succ 25mg Ext Rel Tab) 25 mg PO QAM [facility] Stop: 01/08/24 08:59 Last Admin: 12/15/23 09:44 Dose: 25 mg Miconazole Nitrate (Miconazole Nitrate Powder 85 Gm) 1 appln EXT TID [facility] Stop: 01/09/24 08:59 Last Admin: 12/15/23 09:48 Dose: 1 appln Montelukast Sodium (Montelukast Sodium 10 Mg Tablet) 10 mg PO HS [facility] Stop: 01/07/24 21:52 Last Admin: 12/14/23 21:43 Dose: 10 mg Pantoprazole Sodium (Pantoprazole 40 Mg Tab) 40 mg PO AMHS [facility]; Protocol Stop: 01/07/24 21:59 Last Admin: 12/15/23 09:36 Dose: 40 mg Polyethylene Glycol (Polyethylene (Miralax) 17 Gm Pack) 17 gm PO DAILY PRN PRN Reason: Constipation Stop: 01/07/24 21:52 Sertraline HCl (Sertraline Hcl 100 Mg Tablet) 100 mg PO HS [facility] Stop: 01/12/24 20:59 Last Admin: 12/14/23 21:44 Dose: 100 mg Sodium Chloride (Sodium Chloride 0.65% Na Soln 45 Ml ([place])) 1 sprays NA Q1HWA PRN PRN Reason: Dryness Stop: 01/12/24 17:49 Tramadol HCl (Tramadol Hcl 50 Mg Tablet) 50 mg PO Q6H PRN PRN Reason: Mod-Sev Pain (Scale 4-10) Stop: 01/07/24 21:52 Last Admin: 12/14/23 21:45 Dose: 50 mg Umeclidinium [place] (Umeclidinium [place] 62.5mcg/Blister 7 Puffs/Inhaler) 1 puffs INH DAILY [facility] Stop: 01/09/24 08:59 Last Admin: 12/15/23 09:49 Dose: 1 puffs
[2023-12-15] MEDS: ADVANCED PROBIOTIC 1250 MG CAPSULE PO SCH (11:34)
[2023-12-15] MEDS: LORazepam 0.5 MG TAB PO SCH (15:00)
--- NOTE | 2023-12-15 16:26 | Psychiatric Progress Note ---
Date of Service December 15, 2023 Impression / Recommendations Impression Pt's lorazepam has now been tapered to 0.25 mg QID, half her admission dose. She reports feeling much more anxious. She also reports bothersome xerostomia, which may be a consequence of her increased use of hydroxyzine (which she has not found helpful for anxiety currently or in the past). (1) SIMA (generalized anxiety disorder): (2) Post traumatic stress disorder: Plan I recommend close review of data to find evidence of clear improvement in respiratory acidosis as lorazepam is being tapered and once it's eliminated. Since the lorazepam has been halved, we should see at least some evidence of that now, and more once it's stopped. Since she's clearly suffering due to her increased anxiety, that needs to be justified by a clear improvement in her respiration. If none is seen, I think she should go back on her previous lorazepam regimen. For now, we could consider adding scheduled hydroxyzine 25 mg QID, but will need to consider whether enough benefit is seen to justify antimuscarinic side effects. Interval History Identifying Information YAZAN MCKEON is a 63-year-old F with a history of anxiety, admitted on 12/08/2023 for CoVID-19. Consult is by the hospitalist service for "Anxiety benzo med recs". Chief Complaint "I can't stand how anxious I am". Subjective Subjective The patient was seen and assessed and interval progress reviewed in a multidisciplinary team meeting with psychiatric liaison nursing and social work. For details, see the "Impression" section. Overall I spent a total of 40 minutes for this consultation follow-up including review of chart records, donning and doffing PPE for droplet precautions, direct evaluation of the patient [id number], counseling the patient, medication education with the patient, risk assessment, discussion with the psychiatric liaison nurse, and documentation in the electronic health record. Physical Exam Psychiatric Orientation: alert, oriented to person, oriented to place and cooperative; + not oriented to time (oriented to month, year, but not day or date) Eye Contact: + fair eye contact Motor Behavior: no abnormal motor movements Speech: normal rate/rhythm/volume of speech Affect: + anxious affect Mood: + anxious mood Thought Process: + concrete thought process Thought Content: reality based without delusions Homicidal Thoughts: denies homicidal thoughts Hallucinations: no auditory hallucinations and no visual hallucinations Cognition: remote memory grossly intact, attention grossly intact and language grossly intact; + recent memory not intact Estimated Intelligence: consistent with education level Insight: + limited insight Judgment: + limited judgement Vital Signs (Past 24 Hours) Last Vital Signs Temp 36.7 C 12/15/23 10:02 Pulse 80 12/15/23 14:42 Resp 20 12/15/23 14:42 BP 140/92 12/15/23 10:02 Pulse Ox 90 12/15/23 15:25 O2 Del Method Nasal Cannula 12/15/23 14:42 O2 Flow Rate 5 12/15/23 15:25 FiO2 35 12/13/23 23:36 Results & Data ([facility]) Laboratory Results Laboratory Results - last 24 hr 12/15/23 06:00 WBC 8.46 RBC 2.98 L Hgb 9.2 L Hct 28.4 L MCV 95.3 MCH 30.9 MCHC 32.4 RDW Std Deviation 77.9 H RDW Coeff of Ursula 22.5 H Plt Count 466 H MPV 8.8 L Absolute Nucleated RBC 0.02 Nucleated RBC % (auto) 0.2 ABG pH 7.48 H ABG pCO2 64 H ABG pO2 79 L ABG HCO3 48 H ABG O2 Saturation 96.9 H ABG Base Excess 20.3 H [place] Test Pos Oxygen Given 5L Sodium 139 Potassium 3.8 Chloride 94 L Carbon Dioxide 40 H Anion Gap 5 BUN 17 Creatinine 0.65 Est Cr Clr Drug Dosing 119.0 Est GFR ( Amer) 109.5 Est GFR (Non-Af Amer) 94.5 BUN/Creatinine Ratio 26.2 H Glucose 130 H Calcium 8.5 L Phosphorus 3.0 Magnesium 1.9 Current Inpatient Medications Current Inpatient Medications: Current Inpatient Medications Acetaminophen (Acetaminophen 500 Mg Tab) 1,000 mg PO Q8H [facility] Stop: 01/09/24 01:59 Last Admin: 12/15/23 09:47 Dose: 1,000 mg Albuterol (Albut/Ipratrop 3mg/0.5mg Neb 3 Ml Vial) 3 ml NEB Q8R [facility]; Protocol Stop: 01/08/24 22:59 Last Admin: 12/15/23 14:42 Dose: 3 ml Apixaban (Apixaban 5 Mg Tablet) 5 mg PO Q12 [facility] Stop: 01/08/24 08:59 Last Admin: 12/15/23 09:44 Dose: 5 mg Ascorbic Acid (Ascorbic Acid 500 Mg Tab) 500 mg PO DAILY [facility] Stop: 01/09/24 08:59 Last Admin: 12/15/23 09:45 Dose: 500 mg Baclofen (Baclofen 10 Mg Tab) 10 mg PO TID PRN PRN Reason: .muscle spasm Stop: 01/07/24 21:52 Last Admin: 12/15/23 09:46 Dose: 10 mg Buspirone HCl (Buspirone 5 Mg Tab) 10 mg PO TID [facility] Stop: 01/12/24 13:59 Last Admin: 12/15/23 15:01 Dose: 10 mg Donepezil HCl (Donepezil Hcl 10 Mg Tab) 10 mg PO QAM [facility] Stop: 01/08/24 08:59 Last Admin: 12/15/23 09:45 Dose: 10 mg Ergocalciferol (Ergocalciferol 50,000 Units 1250 Mcg Cap) 50,000 units PO Q7D@0900 [facility] Stop: 01/14/24 08:59 Last Admin: 12/15/23 09:44 Dose: 50,000 units Ferrous Sulfate (Ferrous Sulfate 325 Mg Tab) 650 mg PO DAILY [facility] Stop: 01/09/24 08:59 Last Admin: 12/15/23 09:46 Dose: 650 mg Furosemide (Furosemide 40 Mg Tab) 40 mg PO BID17 [facility] Stop: 01/10/24 08:59 Last Admin: 12/15/23 09:39 Dose: 40 mg Gabapentin (Gabapentin 300 Mg Cap) 300 mg PO TID [facility] Stop: 01/07/24 21:52 Last Admin: 12/15/23 15:02 Dose: 300 mg Guaifenesin (Guaifenesin 600 Mg Tabcr) 1,200 mg PO Q12 [facility] Stop: 01/08/24 08:59 Last Admin: 12/15/23 09:39 Dose: 1,200 mg Hydroxyzine HCl (Hydroxyzine Hcl 25 Mg Tab) 25 mg PO Q4H PRN PRN Reason: Anxiety Stop: 01/12/24 11:08 Dexamethasone 6 mg/ Syringe 1.5 mls @ 1 mls/min IV Q24H [facility] Stop: 01/10/24 01:59 Last Admin: 12/15/23 06:15 Dose: 1 mls/min Ceftriaxone Sodium 2,000 mg/ (Dextrose) 50 mls @ 100 mls/hr IV Q24H [facility]; Protocol Stop: 12/23/23 10:29 Last Infusion: 12/15/23 11:45 Dose: Infused Lactobacillus Acidophilus (Advanced Probiotic 1250 Mg Capsule) 2 cap PO DAILY [facility] Stop: 01/14/24 10:14 Last Admin: 12/15/23 11:34 Dose: 2 cap Loperamide HCl (Loperamide Hcl 2 Mg Cap) 2 mg PO Q6H PRN PRN Reason: Diarrhea Stop: 01/11/24 10:52 Last Admin: 12/15/23 11:32 Dose: 2 mg Lorazepam (Lorazepam 0.5 Mg Tab) 0.25 mg PO QID [facility] Stop: 01/14/24 12:59 Last Admin: 12/15/23 15:00 Dose: 0.25 mg Melatonin (Melatonin 3 Mg Tab) 3 mg PO HS PRN PRN Reason: Sleep Stop: 01/08/24 20:23 Last Admin: 12/14/23 21:43 Dose: 3 mg Metoprolol Succinate (Metoprolol Succ 25mg Ext Rel Tab) 25 mg PO QAM [facility] Stop: 01/08/24 08:59 Last Admin: 12/15/23 09:44 Dose: 25 mg Miconazole Nitrate (Miconazole Nitrate Powder 85 Gm) 1 appln EXT TID [facility] Stop: 01/09/24 08:59 Last Admin: 12/15/23 15:02 Dose: 1 appln Montelukast Sodium (Montelukast Sodium 10 Mg Tablet) 10 mg PO HS [facility] Stop: 01/07/24 21:52 Last Admin: 12/14/23 21:43 Dose: 10 mg Pantoprazole Sodium (Pantoprazole 40 Mg Tab) 40 mg PO AMHS [facility]; Protocol Stop: 01/07/24 21:59 Last Admin: 12/15/23 09:36 Dose: 40 mg Polyethylene Glycol (Polyethylene (Miralax) 17 Gm Pack) 17 gm PO DAILY PRN PRN Reason: Constipation Stop: 01/07/24 21:52 Sertraline HCl (Sertraline Hcl 100 Mg Tablet) 150 mg PO HS [facility] Stop: 01/14/24 20:59 Sodium Chloride (Sodium Chloride 0.65% Na Soln 45 Ml ([place])) 1 sprays NA Q1HWA PRN PRN Reason: Dryness Stop: 01/12/24 17:49 Tramadol HCl (Tramadol Hcl 50 Mg Tablet) 50 mg PO Q6H PRN PRN Reason: Mod-Sev Pain (Scale 4-10) Stop: 01/07/24 21:52 Last Admin: 12/15/23 13:48 Dose: 50 mg Umeclidinium [place] (Umeclidinium [place] 62.5mcg/Blister 7 Puffs/Inhaler) 1 puffs INH DAILY [facility] Stop: 01/09/24 08:59 Last Admin: 12/15/23 09:49 Dose: 1 puffs
[2023-12-15] MEDS: DAPTOmycin 500 MG in SYRINGE 0 ML IV SCH (18:17)
[2023-12-15] MEDS: CEFEPIME 2,000 MG in SYRINGE 0 ML IV SCH (18:17)
[2023-12-15] MEDS: SERTRALINE HCL 100 MG TABLET PO SCH (20:41)
[2023-12-16] MEDS: hydrOXYzine HCl 25 MG TAB PO PRN (05:02)
[2023-12-16 06:48] LABS: Hematocrit (blood only) 28.9 % (37.0-47.0); Hemoglobin 9.1 g/dl (12.0-16.0); Mean Corpuscular Hemoglobin 30.5 pg (25.0-34.0); Mean Corpuscular Hgb Conc 31.5 g/dL (32.0-36.0); Mean Platelet Volume 8.8 fL (9.4-12.4); Platelet Count 443 K/uL (130-400); RDW Coefficient of Variation 22.8 % (11.5-14.5); RDW Standard Deviation 81.1 fL (36.4-46.3); Red Blood Count 2.98 M/uL (4.20-5.40); White Blood Count 6.89 K/ul (4.8-10.8)
[2023-12-16 07:14] LABS: BUN Creatinine Ratio 27.9 (10-20); Calcium 8.6 mg/dl (8.6-10.3); Est GFR (African American) 107.9 ml/min; Est GFR (Non-African American) 93.1 ml/min; Magnesium 1.8 mg/dl (1.7-2.4); Phosphorus 4.5 mg/dl (2.5-4.9); Potassium 3.4 mmol/L (3.5-5.1)
--- NOTE | 2023-12-16 07:25 | XRay Report ---
XR chest 1V portable CLINICAL HISTORY: follow up TECHNIQUE: Single frontal radiograph of the chest was obtained. Comparison: Comparison is made to chest radiograph 12/08/2023 FINDINGS: No lines and tubes are seen. Cardiomegaly is noted. Reticular interstitial opacities are seen. No nohemi dence of pleural effusion or pneumothorax. IMPRESSION: No acute chest disease. ACT 112: Negative or not required by law. Electronically signed by: Joesph Hoyt M.D. 12/16/2023 7:24 AM
--- NOTE | 2023-12-16 08:01 | Hospitalist Progress Note ---
Date of Service December 16, 2023 Assessment & Plan (1) COVID-19: (2) COPD exacerbation: (3) Chronic respiratory failure with hypoxia: (4) Acute on chronic diastolic (congestive) heart failure: (5) Hypophosphatemia: (6) PAF (paroxysmal atrial fibrillation): (7) Anxiety and depression: (8) Dementia: (9) Chronic pain: (10) Chronic anemia: Plan Patient is a 63yoF with PMHx significant for COPD, chronic hypoxic respiratory failure on chronic 4-5 L oxygen, paroxysmal atrial fibrillation anticoagulated with Eliquis, chronic diastolic heart failure, anxiety, depression, dementia, chronic pain and chronic anemia who presented to the ER with URI symptoms in the setting of a covid infection. Acute on chronic hypoxic hypercapnic respiratory failure COVID-19 COPD exacerbation In ER T: 37.6 C, P: 82, R: 15, BP 106/65, 99% on 5 L nasal cannula WBC wnl, lactate and procalcitonin WNL vbg: pH: 7.29, pCO2: 73, HCO3: 35 CXR: No acute disease but does note cardiomegaly CT chest PE protocol showing no acute changes, no PE Blood Cx x 2 NGTD Sputum Cx no sig growth In ER empirically treated with cefepime, received hour-long nebulizer, Solu- Medrol 125 mg, IV Tylenol, Mucinex Treated with Solu-Medrol 40 mg Q8H for COPD exacerbation, tapered down as tolerated before switching to dexamethasone per Pulm recs Scheduled duonebs, incentive spirometry, flutter valve, Mucinex and other supportive measures for covid Continued Zithromax 500mg daily for 3 days 12/15 - reports sputum production. will repeat sputum cultx. Breathing not improved per pt. She has rhonchi and wheezes on exam, will repeat CXR. Pt requires bipap support based on vbg, states cannot tolerate. Respiratory contacted, pulm consulted- appreciate recs. Continue bipap as tolerated (strongly recommended and pt aware, reiterated by pulm and respiratory), AM VBG 12/10- VBG improved today as pt used bipap overnight. Agreeable to using again tonight. Per pulm, can switch to Dexamethasone for covid-19 support, avoid hyperoxygenation. Continue bipap use. Pulm recommending repeat psych consult to discuss her chronic use of benzos which can suppress respiratory drive as well. Appreciate recs 12/11- VBG a little worse than the day before, pt notes she used the bipap ov adrienneight. Agreeable to using during the day today after another olrin discussion. Psychiatry consult placed as chronic benzo use likely playing a factor in her respiratory status but pt remains extremely anxious, appreciate further recs. Continue Dexamethasone, bipap 12/12- VBG improved significantly with use of bipap throughout the day before. Continue with IV Dexamethasone for 5 days/until d/c, whichever is sooner 12/13-Stable symptoms, continue with Dexamethasone 12/14- stable, continue with IV Dex for 1 more day. Encourage bipap use. Nocturnal pulse ox study ordered with AM ABG. Follow in AM. 12/15 - Rx for bipap signed Acute on chronic diastolic (congestive) heart failure Cardiomegaly BNP: 354, trop wnl Chest xray noting cardiomegaly CT chest PE protocol no acute changes, no PE Last echo 08/2023- noted EF 65-70%, mild LVH, Grade 1 diastolic dysfunction, mild tricuspid regurg, no pulm HTN Repeat echo noting LVH, EF 60-65% In ER given 40 mg Lasix IV. Herrera catheter placed and patient starting to diurese Monitor I's and O's, daily weights (Home dose of lasix was 40mg MWF & increased to 40mg BID on 12/06/23) Monitor response of diuresis, likely will need further lasix doses 12/10- pt restarted on home lasix dose 40mg BID 12/11- continue lasix, monitor I&Os, daily weights 12/12 stable, weight down from 146 on admission to 138 today 12/13- stable 12/14- weight stable, continue home lasix Chest Pain Pt stated she was having chest pain on 12/[address] reviewed with no acute changes Pt very anxious at that time, given her Ativan dose Continue to monitor Remains stable UTI Pt reported urinary symptoms and UA/ ucultx were obtained Herrera placed on admission sample questionable however positive for Kleb aerogenes and E. faecium Pt reports suprapubic tenderness Discussed with pt that ideally we would remove herrera at this time, and repeat urine collection, she is very upset and cries at possibility of removing herrera. Also discussed that catheter puts her in risk of infection, however she absolutely does not wish for it to be removed. Started treatment w/ cefepime and dapto - discussed w/ pharmacy and pt's RN in detail Iron Deficiency Anemia Chronic anemia History of GI bleed in 07/2023 History of chronic anemia. History iron deficiency anemia H/H: 8.7 on admission, down from 9.6 on 11/26/2023 Iron level of 13, given IV Venofer, continue iron supplement at this time Folate and B12 levels currently wnl Continue to monitor PCP follow up Hypophosphatemia Phosphate: 1.9 on admission Replete as needed PAF (paroxysmal atrial fibrillation) On metoprolol for rate control Anticoagulated on Eliquis Continue Eliquis and metoprolol with holding parameters Anxiety and depression Continue sertraline, buspirone, lorazepam 12/10- consult placed to psych once more for lorazepam reevaluation in setting of respiratory issues noted above. 12/11- awaiting further psych recs, appreciated 12/12- awaiting further psych recs as her scheduled lorazepam is further worsening her respiratory acidosis for which bipap is absolutely needed (vs. a tracheostomy per pulm) and pt struggles to use the bipap. However, with her severe anxiety, alternative treatment is needed . Appreciate recs. 12/13-case discussed with pulm and Psych. Psych recs in chart: increase seroquel to 100mg daily for 2 days then if tolerates increase to 150mg. Increase buspar to 10mg TID. Wean lorazepam by 0.5 mg every 2 days (i.e., 0.5 mg TID x 2 days, 0.25 mg QID x 2 days, 0.25 mg BID x 2 days, then stop). 12/14- day 2 today of increased seroquel at 100mg, tolerating. Day two of lorazepam of 0.5mg TID. 12/15- increase seroquel to 150mg and decrease lorazepam to 0.25mg QID for 2 days per psychiatry recs. In addition, hydroxyzine started by psychiatry as well. Dementia Continue donepezil Chronic pain chronic left hip and left leg pain LLE negative for DVT on doppler US Continue gabapentin, baclofen and tramadol as needed Scheduled Tylenol for now Continue other home meds as ordered. Diet:HH/Low sodium DVT Prophylaxis:On Eliquis Dispo: PT/OT orders placed- recommending rehab, poss dc to [facility] once medically stable Admission and Anticipated Discharge Date Admission Date: December 08, 2023 Subjective Pt was seen in follow up of covid 19 , anxiety (seen by psych), need for poss. bipap (seen by pulm) laying in bed, on suppl. O2. Previously discussed with psychiatry and pulm- decision to wean lorazepam. Urine cultx positive - pt has currently Herrera placed since admission - she does not wish for it to be removed, Discussed the risk of infection and poss. current UTI she still does not wish for it to be removed. Discussed in detail w/ RN and also w/ pharmacy. Pt seen by psychiatry re: anxiety Reports some abd. discomfort today. will obtain kub Worked with PT today - was able to stand up from bed. encompass aware - worried about pt's participation Review of Systems Review of Systems: All systems reviewed & are unremarkable except as noted in Subjective Physical Exam Physical Exam: General: morbidly obese F in NAD, on suppl. O2 Psych: anxious at times Neuro: difficulty with movements in bed HEENT: NC/AT, NC -suppl. O2 CV: RRR Resp: Breath sounds coarse bilaterally, scattered wheezes bilaterally Abdomen: Soft, obese, + upper abd. tenderness, + bowel sounds Extremities: Edema in lower extremities bilaterally. Results & Data Results & Data Vital Signs (Past 12 Hours) Vital Signs Temp Pulse Pulse Resp BP Pulse Ox O2 Del Method 12/16/23 07:21 87 20 92 Nasal Cannula 12/16/23 02:47 36.5 C 69 20 108/68 92 BiPAP 12/16/23 00:06 36.6 C 82 18 117/66 96 Nasal Cannula 12/15/23 23:18 72 19 94 12/15/23 22:57 69 20 94 Nasal Cannula 12/15/23 21:59 69 O2 Flow Rate FiO2 12/16/23 07:21 3 12/16/23 02:47 12/16/23 00:06 4 12/15/23 23:18 35 12/15/23 22:57 5 12/15/23 21:59 Laboratory Results 12/16/23 Range/Units 06:15 WBC 6.89 (4.8-10.8) K/ul RBC 2.98 L (4.20-5.40) M/uL Hgb 9.1 L (12.0-16.0) g/dl Hct 28.9 L (37.0-47.0) % MCV 97.0 (80.0-100.0) fL MCH 30.5 (25.0-34.0) pg MCHC 31.5 L (32.0-36.0) g/dL RDW Std Deviation 81.1 H (36.4-46.3) fL RDW Coeff of Ursula 22.8 H (11.5-14.5) % Plt Count 443 H (130-400) K/uL MPV 8.8 L (9.4-12.4) fL Sodium 139 (136-145) mmol/L Potassium 3.4 L (3.5-5.1) mmol/L Chloride 94 L (98-107) mmol/L Carbon Dioxide 38 H (21-32) mmol/L Anion Gap 7 (3-11) BUN 19 (6-23) mg/dl Creatinine 0.68 (0.6-1.2) mg/dl Est Cr Clr Drug Dosing 114.0 ml/min Est GFR ( Amer) 107.9 ml/min Est GFR (Non-Af Amer) 93.1 ml/min BUN/Creatinine Ratio 27.9 H (10-20) Glucose 121 H (70-99(Fasting)) mg/dl Calcium 8.6 (8.6-10.3) mg/dl Phosphorus 4.5 D (2.5-4.9) mg/dl Magnesium 1.8 (1.7-2.4) mg/dl Medications Administered Current Inpatient Medications Acetaminophen (Acetaminophen 500 Mg Tab) 1,000 mg PO Q8H [facility] Stop: 01/09/24 01:59 Last Admin: 12/16/23 02:10 Dose: 1,000 mg Albuterol (Albut/Ipratrop 3mg/0.5mg Neb 3 Ml Vial) 3 ml NEB Q8R [facility]; Protocol Stop: 01/08/24 22:59 Last Admin: 12/16/23 07:20 Dose: 3 ml Apixaban (Apixaban 5 Mg Tablet) 5 mg PO Q12 [facility]ARY Stop: 01/08/24 08:59 Last Admin: 12/15/23 20:39 Dose: 5 mg Ascorbic Acid (Ascorbic Acid 500 Mg Tab) 500 mg PO DAILY [facility] Stop: 01/09/24 08:59 Last Admin: 12/15/23 09:45 Dose: 500 mg Baclofen (Baclofen 10 Mg Tab) 10 mg PO TID PRN PRN Reason: .muscle spasm Stop: 01/07/24 21:52 Last Admin: 12/15/23 20:37 Dose: 10 mg Buspirone HCl (Buspirone 5 Mg Tab) 10 mg PO TID [facility] Stop: 01/12/24 13:59 Last Admin: 12/15/23 20:38 Dose: 10 mg Donepezil HCl (Donepezil Hcl 10 Mg Tab) 10 mg PO QAM [facility]ARY Stop: 01/08/24 08:59 Last Admin: 12/15/23 09:45 Dose: 10 mg Ergocalciferol (Ergocalciferol 50,000 Units 1250 Mcg Cap) 50,000 units PO Q7D@0900 [facility] Stop: 01/14/24 08:59 Last Admin: 12/15/23 09:44 Dose: 50,000 units Ferrous Sulfate (Ferrous Sulfate 325 Mg Tab) 650 mg PO DAILY [facility] Stop: 01/09/24 08:59 Last Admin: 12/15/23 09:46 Dose: 650 mg Furosemide (Furosemide 40 Mg Tab) 40 mg PO BID17 [facility] Stop: 01/10/24 08:59 Last Admin: 12/15/23 17:32 Dose: 40 mg Gabapentin (Gabapentin 300 Mg Cap) 300 mg PO TID [facility] Stop: 01/07/24 21:52 Last Admin: 12/15/23 20:40 Dose: 300 mg Guaifenesin (Guaifenesin 600 Mg Tabcr) 1,200 mg PO Q12 [facility]ARY Stop: 01/08/24 08:59 Last Admin: 12/15/23 20:40 Dose: 1,200 mg Hydroxyzine HCl (Hydroxyzine Hcl 25 Mg Tab) 25 mg PO Q4H PRN PRN Reason: Anxiety Stop: 01/12/24 11:08 Last Admin: 12/16/23 05:02 Dose: 25 mg Dexamethasone 6 mg/ Syringe 1.5 mls @ 1 mls/min IV Q24H [facility]ARY Stop: 01/10/24 01:59 Last Admin: 12/16/23 05:02 Dose: 1 mls/min Cefepime HCl 2,000 mg/ Syringe 20 mls @ 5 mls/min IV Q8H [facility] Stop: 12/25/23 17:59 Last Admin: 12/16/23 01:16 Dose: 5 mls/min Daptomycin 500 mg/ Syringe 10 mls @ 5 mls/min IV Q24H [facility]; Protocol Stop: 12/25/23 17:59 Last Admin: 12/15/23 18:17 Dose: 5 mls/min Lactobacillus Acidophilus (Advanced Probiotic 1250 Mg Capsule) 2 cap PO DAILY [facility] Stop: 01/14/24 10:14 Last Admin: 12/15/23 11:34 Dose: 2 cap Loperamide HCl (Loperamide Hcl 2 Mg Cap) 2 mg PO Q6H PRN PRN Reason: Diarrhea Stop: 01/11/24 10:52 Last Admin: 12/15/23 23:29 Dose: 2 mg Lorazepam (Lorazepam 0.5 Mg Tab) 0.25 mg PO QID [facility] Stop: 01/14/24 12:59 Last Admin: 12/15/23 20:41 Dose: 0.25 mg Melatonin (Melatonin 3 Mg Tab) 3 mg PO HS PRN PRN Reason: Sleep Stop: 01/08/24 20:23 Last Admin: 12/15/23 20:51 Dose: 3 mg Metoprolol Succinate (Metoprolol Succ 25mg Ext Rel Tab) 25 mg PO QAM [facility] Stop: 01/08/24 08:59 Last Admin: 12/15/23 09:44 Dose: 25 mg Miconazole Nitrate (Miconazole Nitrate Powder 85 Gm) 1 appln EXT TID [facility] Stop: 01/09/24 08:59 Last Admin: 12/15/23 20:41 Dose: 1 appln Montelukast Sodium (Montelukast Sodium 10 Mg Tablet) 10 mg PO HS [facility] Stop: 01/07/24 21:52 Last Admin: 12/15/23 20:41 Dose: 10 mg Pantoprazole Sodium (Pantoprazole 40 Mg Tab) 40 mg PO AMHS [facility]; Protocol Stop: 01/07/24 21:59 Last Admin: 12/15/23 20:40 Dose: 40 mg Polyethylene Glycol (Polyethylene (Miralax) 17 Gm Pack) 17 gm PO DAILY PRN PRN Reason: Constipation Stop: 01/07/24 21:52 Sertraline HCl (Sertraline Hcl 100 Mg Tablet) 150 mg PO HS MARY Stop: 01/14/24 20:59 Last Admin: 12/15/23 20:41 Dose: 150 mg Sodium Chloride (Sodium Chloride 0.65% Na Soln 45 Ml ([place])) 1 sprays NA Q1HWA PRN PRN Reason: Dryness Stop: 01/12/24 17:49 Tramadol HCl (Tramadol Hcl 50 Mg Tablet) 50 mg PO Q6H PRN PRN Reason: Mod-Sev Pain (Scale 4-10) Stop: 01/07/24 21:52 Last Admin: 12/16/23 02:57 Dose: 50 mg Umeclidinium [place] (Umeclidinium [place] 62.5mcg/Blister 7 Puffs/Inhaler) 1 puffs INH DAILY [facility]ARY Stop: 01/09/24 08:59 Last Admin: 12/15/23 09:49 Dose: 1 puffs
--- NOTE | 2023-12-16 18:48 | XRay Report ---
KUB CLINICAL HISTORY: Generalized abdominal pain. FINDINGS: 4 AP, portable, supine abdominal radiographs are correlated with abdominal CT dated . Cholecystectomy clips are seen in the right upper quadrant. Additional clips project over the righ t colon. There is no radiographic evidence of high-grade bowel obstruction. There is mild gaseous dis tention of the small bowel loops. Fecal retention is seen in the right colon. The hepatic silhouette appears enlarged. There are no abnormal abdominal calcifications. Phleboliths are seen in the pelvis. The skeletal structures are osteopenic and appear intact. There is moderate lumbosacral spondylosis. IMPRESSION: There is mild gaseous distention of the small bowel loops with no radiographic evidence o f high-grade obstruction. Correlate clinically clinically for evidence of a mild ileus. Electronically signed by: Donavon Littlejohn M.D. 12/16/2023 6:47 PM
[2023-12-17 08:57] LABS: Hematocrit (blood only) 31.1 % (37.0-47.0); Hemoglobin 9.6 g/dl (12.0-16.0); Mean Corpuscular Hemoglobin 30.3 pg (25.0-34.0); Mean Corpuscular Hgb Conc 30.9 g/dL (32.0-36.0); Mean Corpuscular Volume 98.1 fL (80.0-100.0); Mean Platelet Volume 8.6 fL (9.4-12.4); Nucleated RBC # (auto) 0.02 K/uL (0.00-0.12); Nucleated RBC % (auto) 0.2 %; Platelet Count 514 K/uL (130-400); RDW Coefficient of Variation 22.5 % (11.5-14.5); RDW Standard Deviation 81.9 fL (36.4-46.3); Red Blood Count 3.17 M/uL (4.20-5.40); White Blood Count 8.16 K/ul (4.8-10.8)
[2023-12-17 09:17] LABS: BUN Creatinine Ratio 24.1 (10-20); Calcium 8.7 mg/dl (8.6-10.3); Creatinine Clr Calc Pharmacy 88.9 ml/min; Est GFR (African American) 82.2 ml/min; Est GFR (Non-African American) 70.9 ml/min; Phosphorus 2.8 mg/dl (2.5-4.9)
--- NOTE | 2023-12-17 09:40 | Psychiatric Progress Note ---
Date of Service December 17, 2023 Impression / Recommendations Impression Pt's lorazepam has now been tapered to 0.25 mg QID, half her admission dose, as of 12/13/2023. She reports feeling much more anxious than before it was reduced. She also reports bothersome xerostomia, which may be a consequence of her increased use of hydroxyzine (which she has not found helpful for anxiety currently or in the past). Pt's current lorazepam dose of 0.25 mg QID is clearly insufficient to confer much benefit in terms of controlling her anxiety, so it will be important either to continue with taper and elimination if there is still the strong belief that lorazepam is sufficient to depress her respiratory drive or to resume the dose of 0.5 mg QID on which her anxiety was moderately under control. Continuing the current dose serves neither goal and leaves her suffering. I recommend close review of data to seek evidence of clear improvement in respiratory acidosis as lorazepam is being tapered and once it's eliminated. Since the lorazepam has been halved, we should see at least some evidence of that now, and ostensibly more once it's stopped if it's actually a contributor to her respiratory depression (as opposed to, for example, overoxygenation due to her anxiety about oxygen flow rate). Since she's clearly suffering due to her increased anxiety, that must be justified by a clear improvement in her respir ation. If none is seen, I think she should go back on her previous lorazepam regimen or 0.5 mg QID. Since pt is currently on a dose of lorazepam insufficient to control her anxiety, we should consider adding scheduled hydroxyzine 25 mg QID (in addition to the PRN already ordered), but will need to consider whether enough benefit is seen to justify antimuscarinic side effects. (1) SIMA (generalized anxiety disorder): (2) Post traumatic stress disorder: Plan * do not continue current lorazepam dose - either proceed with planned taper and elimination or revert to 0.5 mg QID * consider adding scheduled hydroxyzine 25 mg QID if it's felt pt can tolerate the anticipated antimuscarinic side effects. * please review data to ensure there's clear improvement in respiratory acidosis as lorazepam is being tapered and once it's eliminated, sufficient to justify the suffering she's experiencing without effective anxiety medication Inventory Assets Strengths: voluntary Needs: [safety and stabilization, ][medication adjustment, ][additional coping skills, ][increased outpatient services, ][case management, ][increased family involvement] Suicide Risk Level Suicide Risk Level: Low (q15 min observation checks) (denies any suicidal thoughts) Risk Factors Assessment Male: No : Yes Do You Have Access To A Gun?: No Health Problems: Yes Mental Health Diagnoses: Yes Substance Use Disorders: Yes Previous Attempt: Yes Previous Psychiatric Hospitalization: Yes Protective Factors Assessment : No Responsible for Young Children: No Employed: No Interval History Identifying Information YAZAN MCKEON is a 63-year-old F with a history of anxiety, admitted on 12/08/2023 for CoVID-19. Consult is by the hospitalist service for "Anxiety benzo med recs". Chief Complaint "What are they going to do for my anxiety?" Subjective Subjective The patient was seen and assessed and interval progress reviewed in a multidisciplinary team meeting with psychiatric liaison nursing and social work. For details, see the "Impression" section. Overall I spent a total of 31 minutes for this consultation follow-up including review of chart records, review of test results, donning and doffing PPE for droplet precautions, direct evaluation of the patient [id number], counseling the patient, medication education with the patient, risk assessment, discussion with the psychiatric liaison nurse, and documentation in the electronic health record. Physical Exam Psychiatric Orientation: alert, oriented to person, oriented to place and cooperative; + not oriented to time (oriented to month, year, but not day or date) Eye Contact: + fair eye contact Motor Behavior: no abnormal motor movements Speech: normal rate/rhythm/volume of speech Affect: + anxious affect Mood: + anxious mood Thought Process: + concrete thought process Thought Content: reality based without delusions Homicidal Thoughts: denies homicidal thoughts Hallucinations: no auditory hallucinations and no visual hallucinations Cognition: remote memory grossly intact, attention grossly intact and language grossly intact; + recent memory not intact Estimated Intelligence: consistent with education level Insight: + limited insight Judgment: + limited judgement Vital Signs (Past 24 Hours) Last Vital Signs Temp 37.0 C 12/17/23 07:54 Pulse 81 12/17/23 07:54 Resp 19 12/17/23 07:54 BP 137/78 12/17/23 07:54 Pulse Ox 93 12/17/23 07:54 O2 Del Method Nasal Cannula 12/17/23 07:54 O2 Flow Rate 3 12/17/23 07:54 FiO2 35 12/16/23 23:40 Results & Data ([facility]) Laboratory Results Laboratory Results - last 24 hr 12/17/23 08:41 WBC 8.16 RBC 3.17 L Hgb 9.6 L Hct 31.1 L MCV 98.1 MCH 30.3 MCHC 30.9 L RDW Std Deviation 81.9 H RDW Coeff of Ursula 22.5 H Plt Count 514 H MPV 8.6 L Absolute Nucleated RBC 0.02 Nucleated RBC % (auto) 0.2 Sodium 136 Potassium 4.0 Chloride 91 L Carbon Dioxide 38 H Anion Gap 7 BUN 21 Creatinine 0.87 Est Cr Clr Drug Dosing 88.9 Est GFR ( Amer) 82.2 Est GFR (Non-Af Amer) 70.9 BUN/Creatinine Ratio 24.1 H Glucose 190 H Calcium 8.7 Phosphorus 2.8 D Magnesium 2.0 Current Inpatient Medications Current Inpatient Medications: Current Inpatient Medications Acetaminophen (Acetaminophen 500 Mg Tab) 1,000 mg PO Q8H [facility] Stop: 01/09/24 01:59 Last Admin: 12/17/23 09:03 Dose: 1,000 mg Albuterol (Albut/Ipratrop 3mg/0.5mg Neb 3 Ml Vial) 3 ml NEB Q8R [facility]; Protocol Stop: 01/08/24 22:59 Last Admin: 12/17/23 07:04 Dose: 3 ml Apixaban (Apixaban 5 Mg Tablet) 5 mg PO Q12 [facility] Stop: 01/08/24 08:59 Last Admin: 12/17/23 09:05 Dose: 5 mg Ascorbic Acid (Ascorbic Acid 500 Mg Tab) 500 mg PO DAILY [facility] Stop: 01/09/24 08:59 Last Admin: 12/17/23 09:05 Dose: 500 mg Baclofen (Baclofen 10 Mg Tab) 10 mg PO TID PRN PRN Reason: .muscle spasm Stop: 01/07/24 21:52 Last Admin: 12/16/23 20:44 Dose: 10 mg Buspirone HCl (Buspirone 5 Mg Tab) 10 mg PO TID [facility] Stop: 01/12/24 13:59 Last Admin: 12/17/23 09:03 Dose: 10 mg Donepezil HCl (Donepezil Hcl 10 Mg Tab) 10 mg PO QAM [facility] Stop: 01/08/24 08:59 Last Admin: 12/17/23 09:04 Dose: 10 mg Ergocalciferol (Ergocalciferol 1250 Mcg (50,000 Units) Cap) 1,250 mcg PO Q7D@0900 [facility] Stop: 01/22/24 08:59 Ferrous Sulfate (Ferrous Sulfate 325 Mg Tab) 650 mg PO DAILY [facility] Stop: 01/09/24 08:59 Last Admin: 12/16/23 09:17 Dose: 650 mg Furosemide (Furosemide 40 Mg Tab) 40 mg PO BID17 [facility] Stop: 01/10/24 08:59 Last Admin: 12/17/23 09:03 Dose: 40 mg Gabapentin (Gabapentin 300 Mg Cap) 300 mg PO TID [facility] Stop: 01/07/24 21:52 Last Admin: 12/17/23 09:04 Dose: 300 mg Guaifenesin (Guaifenesin 600 Mg Tabcr) 1,200 mg PO Q12 [facility] Stop: 01/08/24 08:59 Last Admin: 12/17/23 09:04 Dose: 1,200 mg Hydroxyzine HCl (Hydroxyzine Hcl 25 Mg Tab) 25 mg PO Q4H PRN PRN Reason: Anxiety Stop: 01/12/24 11:08 Last Admin: 12/17/23 02:04 Dose: 25 mg Dexamethasone 6 mg/ Syringe 1.5 mls @ 1 mls/min IV Q24H [facility] Stop: 01/10/24 01:59 Last Admin: 12/17/23 05:35 Dose: 1 mls/min Cefepime HCl 2,000 mg/ Syringe 20 mls @ 5 mls/min IV Q8H [facility] Stop: 12/25/23 17:59 Last Admin: 12/17/23 09:06 Dose: 5 mls/min Daptomycin 500 mg/ Syringe 10 mls @ 5 mls/min IV Q24H [facility]; Protocol Stop: 12/25/23 17:59 Last Admin: 12/16/23 17:26 Dose: 5 mls/min Lactobacillus Acidophilus (Advanced Probiotic 1250 Mg Capsule) 2 cap PO DAILY S Stop: 01/14/24 10:14 Last Admin: 12/17/23 09:04 Dose: 2 cap Loperamide HCl (Loperamide Hcl 2 Mg Cap) 2 mg PO Q6H PRN PRN Reason: Diarrhea Stop: 01/11/24 10:52 Last Admin: 12/15/23 23:29 Dose: 2 mg Lorazepam (Lorazepam 0.5 Mg Tab) 0.25 mg PO QID [facility] Stop: 01/14/24 12:59 Last Admin: 12/17/23 09:03 Dose: 0.25 mg Melatonin (Melatonin 3 Mg Tab) 3 mg PO HS PRN PRN Reason: Sleep Stop: 01/08/24 20:23 Last Admin: 12/16/23 20:51 Dose: 3 mg Metoprolol Succinate (Metoprolol Succ 25mg Ext Rel Tab) 25 mg PO QAM [facility] Stop: 01/08/24 08:59 Last Admin: 12/17/23 09:03 Dose: 25 mg Miconazole Nitrate (Miconazole Nitrate Powder 85 Gm) 1 appln EXT TID [facility] Stop: 01/09/24 08:59 Last Admin: 12/17/23 09:06 Dose: 1 appln Montelukast Sodium (Montelukast Sodium 10 Mg Tablet) 10 mg PO [facility] Stop: 01/07/24 21:52 Last Admin: 12/16/23 20:47 Dose: 10 mg Pantoprazole Sodium (Pantoprazole 40 Mg Tab) [address] [facility]; Protocol Stop: 01/07/24 21:59 Last Admin: 12/17/23 09:04 Dose: 40 mg Polyethylene Glycol (Polyethylene (Miralax) 17 Gm Pack) 17 gm PO DAILY PRN PRN Reason: Constipation Stop: 01/07/24 21:52 Sertraline HCl (Sertraline Hcl 100 Mg Tablet) 150 mg PO [facility] Stop: 01/14/24 20:59 Last Admin: 12/16/23 20:49 Dose: 150 mg Sodium Chloride (Sodium Chloride 0.65% Na Soln 45 Ml ([place])) 1 sprays NA Q1HWA PRN PRN Reason: Dryness Stop: 01/12/24 17:49 Tramadol HCl (Tramadol Hcl 50 Mg Tablet) 50 mg PO Q6H PRN PRN Reason: Mod-Sev Pain (Scale 4-10) Stop: 01/07/24 21:52 Last Admin: 12/17/23 09:04 Dose: 50 mg Umeclidinium [place] (Umeclidinium [place] 62.5mcg/Blister 7 Puffs/Inhaler) 1 puffs INH DAILY [facility] Stop: 01/09/24 08:59 Last Admin: 12/17/23 09:05 Dose: 1 puffs
[2023-12-17] MEDS: SULFAMETHOXAZOLE/TRIMETHOPRIM DS 800/160MG TAB PO SCH (22:12)
[2023-12-18 06:19] LABS: Hematocrit (blood only) 30.9 % (37.0-47.0); Hemoglobin 9.7 g/dl (12.0-16.0); Mean Corpuscular Hemoglobin 30.4 pg (25.0-34.0); Mean Corpuscular Hgb Conc 31.4 g/dL (32.0-36.0); Mean Corpuscular Volume 96.9 fL (80.0-100.0); Mean Platelet Volume 8.8 fL (9.4-12.4); Nucleated RBC # (auto) 0.04 K/uL (0.00-0.12); Nucleated RBC % (auto) 0.3 %; Platelet Count 554 K/uL (130-400); RDW Coefficient of Variation 22.5 % (11.5-14.5); RDW Standard Deviation 80.5 fL (36.4-46.3); Red Blood Count 3.19 M/uL (4.20-5.40); White Blood Count 11.95 K/ul (4.8-10.8)
[2023-12-18 06:33] LABS: BUN Creatinine Ratio 27.6 (10-20); Calcium 8.8 mg/dl (8.6-10.3); Creatinine Clr Calc Pharmacy 87.4 ml/min; Est GFR (African American) 82.2 ml/min; Est GFR (Non-African American) 70.9 ml/min; Phosphorus 3.1 mg/dl (2.5-4.9); Potassium 3.9 mmol/L (3.5-5.1)
--- NOTE | 2023-12-18 09:25 | Hospitalist Progress Note ---
Date of Service December 17, 2023 Assessment & Plan (1) COVID-19: (2) COPD exacerbation: (3) Chronic respiratory failure with hypoxia: (4) Acute on chronic diastolic (congestive) heart failure: (5) Hypophosphatemia: (6) PAF (paroxysmal atrial fibrillation): (7) Anxiety and depression: (8) Dementia: (9) Chronic pain: (10) Chronic anemia: Plan Patient is a 63yoF with PMHx significant for COPD, chronic hypoxic respiratory failure on chronic 4-5 L oxygen, paroxysmal atrial fibrillation anticoagulated with Eliquis, chronic diastolic heart failure, anxiety, depression, dementia, chronic pain and chronic anemia who presented to the ER with URI symptoms in the setting of a covid infection. Acute on chronic hypoxic hypercapnic respiratory failure COVID-19 COPD exacerbation In ER T: 37.6 C, P: 82, R: 15, BP 106/65, 99% on 5 L nasal cannula WBC wnl, lactate and procalcitonin WNL vbg: pH: 7.29, pCO2: 73, HCO3: 35 CXR: No acute disease but does note cardiomegaly CT chest PE protocol showing no acute changes, no PE Blood Cx x 2 NGTD Sputum Cx no sig growth In ER empirically treated with cefepime, received hour-long nebulizer, Solu- Medrol 125 mg, IV Tylenol, Mucinex Treated with Solu-Medrol 40 mg Q8H for COPD exacerbation, tapered down as tolerated before switching to dexamethasone per Pulm recs Scheduled duonebs, incentive spirometry, flutter valve, Mucinex and other supportive measures for covid Continued Zithromax 500mg daily for 3 days 12/15 - reports sputum production. will repeat sputum cultx. Breathing not improved per pt. She has rhonchi and wheezes on exam, will repeat CXR. Pt requires bipap support based on vbg, states cannot tolerate. Respiratory contacted, pulm consulted- appreciate recs. Continue bipap as tolerated (strongly recommended and pt aware, reiterated by pulm and respiratory), AM VBG 12/10- VBG improved today as pt used bipap overnight. Agreeable to using again tonight. Per pulm, can switch to Dexamethasone for covid-19 support, avoid hyperoxygenation. Continue bipap use. Pulm recommending repeat psych consult to discuss her chronic use of benzos which can suppress respiratory drive as well. Appreciate recs 12/11- VBG a little worse than the day before, pt notes she used the bipap ov adrienneight. Agreeable to using during the day today after another lorin discussion. Psychiatry consult placed as chronic benzo use likely playing a factor in her respiratory status but pt remains extremely anxious, appreciate further recs. Continue Dexamethasone, bipap 12/12- VBG improved significantly with use of bipap throughout the day before. Continue with IV Dexamethasone for 5 days/until d/c, whichever is sooner 12/13-Stable symptoms, continue with Dexamethasone 12/14- stable, continue with IV Dex for 1 more day. Encourage bipap use. Nocturnal pulse ox study ordered with AM ABG. Follow in AM. 12/15 - Rx for bipap signed Acute on chronic diastolic (congestive) heart failure Cardiomegaly BNP: 354, trop wnl Chest xray noting cardiomegaly CT chest PE protocol no acute changes, no PE Last echo 08/2023- noted EF 65-70%, mild LVH, Grade 1 diastolic dysfunction, mild tricuspid regurg, no pulm HTN Repeat echo noting LVH, EF 60-65% In ER given 40 mg Lasix IV. Herrera catheter placed and patient starting to diurese Monitor I's and O's, daily weights (Home dose of lasix was 40mg MWF & increased to 40mg BID on 12/06/23) Monitor response of diuresis, likely will need further lasix doses 12/10- pt restarted on home lasix dose 40mg BID 12/11- continue lasix, monitor I&Os, daily weights 12/12 stable, weight down from 146 on admission to 138 today 12/13- stable 12/14- weight stable, continue home lasix Chest Pain Pt stated she was having chest pain on 12/[address] reviewed with no acute changes Pt very anxious at that time, given her Ativan dose Continue to monitor Remains stable UTI Pt reported urinary symptoms and UA/ ucultx were obtained Herrera placed on admission sample questionable however positive for Kleb aerogenes and E. faecium Pt reports suprapubic tenderness Discussed with pt that ideally we would remove herrera at this time, and repeat urine collection, she is very upset and cries at possibility of removing herrera. Also discussed that catheter puts her in risk of infection, however she absolutely does not wish for it to be removed. Started treatment w/ cefepime and dapto - discussed w/ pharmacy and pt's RN in detail Switch to PO abx - bactrim and macrobid and finish the course Iron Deficiency Anemia Chronic anemia History of GI bleed in 07/2023 History of chronic anemia. History iron deficiency anemia H/H: 8.7 on admission, down from 9.6 on 11/26/2023 Iron level of 13, given IV Venofer, continue iron supplement at this time Folate and B12 levels currently wnl Continue to monitor PCP follow up Hypophosphatemia Phosphate: 1.9 on admission Replete as needed PAF (paroxysmal atrial fibrillation) On metoprolol for rate control Anticoagulated on Eliquis Continue Eliquis and metoprolol with holding parameters Anxiety and depression Continue sertraline, buspirone, lorazepam 12/10- consult placed to psych once more for lorazepam reevaluation in setting of respiratory issues noted above. 12/11- awaiting further psych recs, appreciated 12/12- awaiting further psych recs as her scheduled lorazepam is further worsening her respiratory acidosis for which bipap is absolutely needed (vs. a tracheostomy per pulm) and pt struggles to use the bipap. However, with her severe anxiety, alternative treatment is needed . Appreciate recs. 12/13-case discussed with pulm and Psych. Psych recs in chart: increase seroquel to 100mg daily for 2 days then if tolerates increase to 150mg. Increase buspar to 10mg TID. Wean lorazepam by 0.5 mg every 2 days (i.e., 0.5 mg TID x 2 days, 0.25 mg QID x 2 days, 0.25 mg BID x 2 days, then stop). 12/14- day 2 today of increased seroquel at 100mg, tolerating. Day two of lorazepam of 0.5mg TID. 12/15- increase seroquel to 150mg and decrease lorazepam to 0.25mg QID for 2 days per psychiatry recs. In addition, hydroxyzine started by psychiatry as well. Dementia Continue donepezil Chronic pain chronic left hip and left leg pain LLE negative for DVT on doppler US Continue gabapentin, baclofen and tramadol as needed Scheduled Tylenol for now Continue other home meds as ordered. Diet:HH/Low sodium DVT Prophylaxis:On Eliquis Dispo: PT/OT orders placed, CM involved in DC needs Admission and Anticipated Discharge Date Admission Date: December 08, 2023 Subjective Pt was seen in follow up of covid 19 , anxiety (seen by psych), need for poss. bipap (seen by pulm) laying in bed, on suppl. O2. Previously discussed with psychiatry and pulm- decision to wean lorazepam. Urine cultx positive - pt has currently Herrera placed since admission - she does not wish for it to be removed, Discussed the risk of infection and poss. current UTI she still does not wish for it to be removed. Discussed in detail w/ RN and also w/ pharmacy. Pt seen by psychiatry re: anxiety Worked with PT - was able to stand up from bed. [facility] aware - worried about pt's participation, and so not accepting the pt. Pt upset today about that however after further discussion - that [facility] is probably not the best choice for her as her ability to work w/ PT is so limited, pt seemed feeling well about that. CM involved in DC needs. Discussed w/ pharmacy - plan to switch abx to PO Review of Systems Review of Systems: All systems reviewed & are unremarkable except as noted in Subjective Physical Exam Physical Exam: General: morbidly obese F in NAD, on suppl. O2 Psych: anxious at times Neuro: difficulty with movements in bed HEENT: NC/AT, NC -suppl. O2 CV: RRR Resp: mild rhonchi bilaterally, mild scattered wheezes bilaterally (improved) Abdomen: Soft, obese, nontender, + bowel sounds Extremities: mild Edema in lower extremities bilaterally (improved). Results & Data Results & Data Vital Signs (Past 12 Hours) Vital Signs Temp Pulse Pulse Resp BP BP Pulse Ox 12/18/23 08:15 36.8 C 81 17 126/77 90 12/18/23 07:55 78 18 93 12/18/23 03:39 70 18 94 12/18/23 03:18 36.9 C 75 21 129/79 93 12/18/23 00:59 78 15 94 12/18/23 00:19 36.5 C 76 18 105/65 91 12/17/23 23:16 76 16 94 12/17/23 22:27 12/17/23 22:00 77 O2 Del Method O2 Flow Rate FiO2 12/18/23 08:15 Nasal Cannula 3 12/18/23 07:55 Nasal Cannula 3 12/18/23 03:39 Nasal Cannula 3 12/18/23 03:18 Nasal Cannula 3 12/18/23 00:59 35 12/18/23 00:19 Nasal Cannula 3 12/17/23 23:16 Nasal Cannula 3 12/17/23 22:27 Nasal Cannula 3 12/17/23 22:00
--- NOTE | 2023-12-18 09:28 | Hospitalist Progress Note ---
Date of Service December 18, 2023 Assessment & Plan (1) COVID-19: (2) COPD exacerbation: (3) Chronic respiratory failure with hypoxia: (4) Acute on chronic diastolic (congestive) heart failure: (5) Hypophosphatemia: (6) PAF (paroxysmal atrial fibrillation): (7) Anxiety and depression: (8) Dementia: (9) Chronic pain: (10) Chronic anemia: Plan Patient is a 63yoF with PMHx significant for COPD, chronic hypoxic respiratory failure on chronic 4-5 L oxygen, paroxysmal atrial fibrillation anticoagulated with Eliquis, chronic diastolic heart failure, anxiety, depression, dementia, chronic pain and chronic anemia who presented to the ER with URI symptoms in the setting of a covid infection. Acute on chronic hypoxic hypercapnic respiratory failure COVID-19 COPD exacerbation In ER T: 37.6 C, P: 82, R: 15, BP 106/65, 99% on 5 L nasal cannula WBC wnl, lactate and procalcitonin WNL vbg: pH: 7.29, pCO2: 73, HCO3: 35 CXR: No acute disease but does note cardiomegaly CT chest PE protocol showing no acute changes, no PE Blood Cx x 2 NGTD Sputum Cx no sig growth In ER empirically treated with cefepime, received hour-long nebulizer, Solu- Medrol 125 mg, IV Tylenol, Mucinex Treated with Solu-Medrol 40 mg Q8H for COPD exacerbation, tapered down as tolerated before switching to dexamethasone per Pulm recs Scheduled duonebs, incentive spirometry, flutter valve, Mucinex and other supportive measures for covid Continued Zithromax 500mg daily for 3 days 12/15 - reports sputum production. will repeat sputum cultx. Breathing not improved per pt. She has rhonchi and wheezes on exam, repeat CXR - negat. for acute disease. Pt requires bipap support based on vbg, states cannot tolerate. Respiratory contacted, pulm consulted- appreciate recs. Continue bipap as tolerated (strongly recommended and pt aware, reiterated by pulm and respiratory), AM VBG 12/10- VBG improved today as pt used bipap overnight. Agreeable to using again tonight. Per pulm, can switch to Dexamethasone for covid-19 support, avoid hyperoxygenation. Continue bipap use. Pulm recommending repeat psych consult to discuss her chronic use of benzos which can suppress respiratory drive as well. Appreciate recs 12/11- VBG a little worse than the day before, pt notes she used the bipap overnight. Agreeable to using during the day today after another lorin discussion. Psychiatry consult placed as chronic benzo use likely playing a factor in her respiratory status but pt remains extremely anxious, appreciate further recs. Continue Dexamethasone, bipap 12/12- VBG improved significantly with use of bipap throughout the day before. Continue with IV Dexamethasone for 5 days/until d/c, whichever is sooner 12/13-Stable symptoms, continue with Dexamethasone 12/14- stable, continue with IV Dex for 1 more day. Encourage bipap use. Nocturnal pulse ox study ordered with AM ABG. Follow in AM. 12/15 - Rx for bipap signed Acute on chronic diastolic (congestive) heart failure Cardiomegaly BNP: 354, trop wnl Chest xray noting cardiomegaly CT chest PE protocol no acute changes, no PE Last echo 08/2023- noted EF 65-70%, mild LVH, Grade 1 diastolic dysfunction, mild tricuspid regurg, no pulm HTN Repeat echo noting LVH, EF 60-65% In ER given 40 mg Lasix IV. Herrera catheter placed and patient starting to diurese Monitor I's and O's, daily weights (Home dose of lasix was 40mg MWF & increased to 40mg BID on 12/06/23) Monitor response of diuresis, likely will need further lasix doses 12/10- pt restarted on home lasix dose 40mg BID 12/11- continue lasix, monitor I&Os, daily weights 12/12 stable, weight down from 146 on admission to 138 today 12/13- stable 12/14- weight stable, continue home lasix Chest Pain Pt stated she was having chest pain on 12/[address] reviewed with no acute changes Pt very anxious at that time, given her Ativan dose Continue to monitor Remains stable UTI Pt reported urinary symptoms and UA/ ucultx were obtained Herrera placed on admission sample questionable however positive for Kleb aerogenes and E. faecium Pt reports suprapubic tenderness Discussed with pt that ideally we would remove herrera at this time, and repeat urine collection, she is very upset and cries at possibility of removing herrera. Also discussed that catheter puts her in risk of infection, however she absolutely does not wish for it to be removed. Started treatment w/ cefepime and dapto - discussed w/ pharmacy and pt's RN in detail Switch to PO abx - bactrim and macrobid and finish the course Iron Deficiency Anemia Chronic anemia History of GI bleed in 07/2023 History of chronic anemia. History iron deficiency anemia H/H: 8.7 on admission, down from 9.6 on 11/26/2023 Iron level of 13, given IV Venofer, continue iron supplement at this time Folate and B12 levels currently wnl Continue to monitor PCP follow up Hypophosphatemia Phosphate: 1.9 on admission Replete as needed PAF (paroxysmal atrial fibrillation) On metoprolol for rate control Anticoagulated on Eliquis Continue Eliquis and metoprolol with holding parameters Anxiety and depression Continue sertraline, buspirone, lorazepam 12/10- consult placed to psych once more for lorazepam reevaluation in setting of respiratory issues noted above. 12/11- awaiting further psych recs, appreciated 12/12- awaiting further psych recs as her scheduled lorazepam is further worsening her respiratory acidosis for which bipap is absolutely needed (vs. a tracheostomy per pulm) and pt struggles to use the bipap. However, with her severe anxiety, alternative treatment is needed . Appreciate recs. 12/13-case discussed with pulm and Psych. Psych recs in chart: increase seroquel to 100mg daily for 2 days then if tolerates increase to 150mg. Increase buspar to 10mg TID. Wean lorazepam by 0.5 mg every 2 days (i.e., 0.5 mg TID x 2 days, 0.25 mg QID x 2 days, 0.25 mg BID x 2 days, then stop). 12/14- day 2 today of increased seroquel at 100mg, tolerating. Day two of lorazepam of 0.5mg TID. 12/15- increased sertraline to 150mg and decrease lorazepam to 0.25mg QID for 2 days per psychiatry recs. In addition, hydroxyzine started by psychiatry as well. 12/18 Will increase lorazepam to 0.5 TID after discussing w/ psych today Dementia Continue donepezil Chronic pain chronic left hip and left leg pain LLE negative for DVT on doppler US Continue gabapentin, baclofen and tramadol as needed Scheduled Tylenol for now Continue other home meds as ordered. Diet:HH/Low sodium DVT Prophylaxis:On Eliquis Dispo: PT/OT orders placed, CM involved in DC needs Admission and Anticipated Discharge Date Admission Date: December 08, 2023 Subjective Pt was seen in follow up of covid 19 , anxiety (seen by psych), need for poss. bipap (seen by pulm) laying in bed, on suppl. O2. Previously discussed with psychiatry and pulm- decision to wean lorazepam. Urine cultx positive - pt has currently Herrera placed since admission - she does not wish for it to be removed, Discussed the risk of infection and poss. current UTI she still does not wish for it to be removed. Discussed in detail w/ RN and also w/ pharmacy. Pt seen by psychiatry re: anxiety Worked with PT - was able to stand up from bed. [facility] aware - worried about pt's participation, and so not accepting the pt. Discussed w/ psychiatry today - will increase lorazepam to 0.5 tid and cont. to monitor Review of Systems Review of Systems: All systems reviewed & are unremarkable except as noted in Subjective Physical Exam Physical Exam: General: morbidly obese F in NAD, on suppl. O2 Psych: anxious at times Neuro: difficulty with movements in bed HEENT: NC/AT, NC -suppl. O2 CV: RRR Resp: mild rhonchi bilaterally, mild scattered wheezes bilaterally (improved) Abdomen: Soft, obese, nontender, + bowel sounds Extremities: mild Edema in lower extremities bilaterally (improved). Results & Data Results & Data Vital Signs (Past 12 Hours) Vital Signs Temp Pulse Pulse Resp BP BP Pulse Ox 12/18/23 08:15 36.8 C 81 17 126/77 90 12/18/23 07:55 78 18 93 12/18/23 03:39 70 18 94 12/18/23 03:18 36.9 C 75 21 129/79 93 12/18/23 00:59 78 15 94 12/18/23 00:19 36.5 C 76 18 105/65 91 12/17/23 23:16 76 16 94 12/17/23 22:27 12/17/23 22:00 77 O2 Del Method O2 Flow Rate FiO2 12/18/23 08:15 Nasal Cannula 3 12/18/23 07:55 Nasal Cannula 3 12/18/23 03:39 Nasal Cannula 3 12/18/23 03:18 Nasal Cannula 3 12/18/23 00:59 35 12/18/23 00:19 Nasal Cannula 3 12/17/23 23:16 Nasal Cannula 3 12/17/23 22:27 Nasal Cannula 3 12/17/23 22:00 Laboratory Results 12/18/23 Range/Units 05:27 WBC 11.95 H (4.8-10.8) K/ul RBC 3.19 L (4.20-5.40) M/uL Hgb 9.7 L (12.0-16.0) g/dl Hct 30.9 L (37.0-47.0) % MCV 96.9 (80.0-100.0) fL MCH 30.4 (25.0-34.0) pg MCHC 31.4 L (32.0-36.0) g/dL RDW Std Deviation 80.5 H (36.4-46.3) fL RDW Coeff of Ursula 22.5 H (11.5-14.5) % Plt Count 554 H (130-400) K/uL MPV 8.8 L (9.4-12.4) fL Absolute Nucleated RBC 0.04 (0.00-0.12) K/uL Nucleated RBC % (auto) 0.3 % Sodium 139 (136-145) mmol/L Potassium 3.9 (3.5-5.1) mmol/L Chloride 93 L (98-107) mmol/L Carbon Dioxide 40 H (21-32) mmol/L Anion Gap 6 (3-11) BUN 24 H (6-23) mg/dl Creatinine 0.87 (0.6-1.2) mg/dl Est Cr Clr Drug Dosing 87.4 ml/min Est GFR ( Amer) 82.2 ml/min Est GFR (Non-Af Amer) 70.9 ml/min BUN/Creatinine Ratio 27.6 H (10-20) Glucose 114 H (70-99(Fasting)) mg/dl Calcium 8.8 (8.6-10.3) mg/dl Phosphorus 3.1 (2.5-4.9) mg/dl Magnesium 2.0 (1.7-2.4) mg/dl Medications Administered Current Inpatient Medications Acetaminophen (Acetaminophen 500 Mg Tab) 1,000 mg PO Q8H [facility] Stop: 01/09/24 01:59 Last Admin: 12/18/23 02:40 Dose: Not Given Albuterol (Albut/Ipratrop 3mg/0.5mg Neb 3 Ml Vial) 3 ml NEB Q8R [facility]; Protocol Stop: 01/08/24 22:59 Last Admin: 12/18/23 07:55 Dose: 3 ml Apixaban (Apixaban 5 Mg Tablet) 5 mg PO Q12 [facility] Stop: 01/08/24 08:59 Last Admin: 12/17/23 22:13 Dose: 5 mg Ascorbic Acid (Ascorbic Acid 500 Mg Tab) 500 mg PO DAILY [facility] Stop: 01/09/24 08:59 Last Admin: 12/17/23 09:05 Dose: 500 mg Baclofen (Baclofen 10 Mg Tab) 10 mg PO TID PRN PRN Reason: .muscle spasm Stop: 01/07/24 21:52 Last Admin: 12/17/23 22:10 Dose: 10 mg Buspirone HCl (Buspirone 5 Mg Tab) 10 mg PO TID [facility] Stop: 01/12/24 13:59 Last Admin: 12/17/23 22:10 Dose: 10 mg Donepezil HCl (Donepezil Hcl 10 Mg Tab) 10 mg PO QAM [facility] Stop: 01/08/24 08:59 Last Admin: 12/17/23 09:04 Dose: 10 mg Ergocalciferol (Ergocalciferol 1250 Mcg (50,000 Units) Cap) 1,250 mcg PO Q7D@0900 [facility] Stop: 01/22/24 08:59 Ferrous Sulfate (Ferrous Sulfate 325 Mg Tab) 650 mg PO DAILY [facility] Stop: 01/09/24 08:59 Last Admin: 12/16/23 09:17 Dose: 650 mg Furosemide (Furosemide 40 Mg Tab) 40 mg PO BID17 [facility] Stop: 01/10/24 08:59 Last Admin: 12/17/23 17:11 Dose: 40 mg Gabapentin (Gabapentin 300 Mg Cap) 300 mg PO TID [facility] Stop: 01/07/24 21:52 Last Admin: 12/17/23 22:09 Dose: 300 mg Guaifenesin (Guaifenesin 600 Mg Tabcr) 1,200 mg PO Q12 [facility] Stop: 01/08/24 08:59 Last Admin: 12/17/23 22:11 Dose: 1,200 mg Hydroxyzine HCl (Hydroxyzine Hcl 25 Mg Tab) 25 mg PO Q4H PRN PRN Reason: Anxiety Stop: 01/12/24 11:08 Last Admin: 12/17/23 02:04 Dose: 25 mg Dexamethasone 6 mg/ Syringe 1.5 mls @ 1 mls/min IV Q24H [facility] Stop: 01/10/24 01:59 Last Admin: 12/18/23 05:11 Dose: 1 mls/min Lactobacillus Acidophilus (Advanced Probiotic 1250 Mg Capsule) 2 cap PO DAILY [facility] Stop: 01/14/24 10:14 Last Admin: 12/17/23 09:04 Dose: 2 cap Loperamide HCl (Loperamide Hcl 2 Mg Cap) 2 mg PO Q6H PRN PRN Reason: Diarrhea Stop: 01/11/24 10:52 Last Admin: 12/15/23 23:29 Dose: 2 mg Lorazepam (Lorazepam 0.5 Mg Tab) 0.25 mg PO QID [facility] Stop: 01/14/24 12:59 Last Admin: 12/17/23 22:13 Dose: 0.25 mg Melatonin (Melatonin 3 Mg Tab) 3 mg PO HS PRN PRN Reason: Sleep Stop: 01/08/24 20:23 Last Admin: 12/16/23 20:51 Dose: 3 mg Metoprolol Succinate (Metoprolol Succ 25mg Ext Rel Tab) 25 mg PO QAM [facility] Stop: 01/08/24 08:59 Last Admin: 12/17/23 09:03 Dose: 25 mg Miconazole Nitrate (Miconazole Nitrate Powder 85 Gm) 1 appln EXT TID [facility] Stop: 01/09/24 08:59 Last Admin: 12/17/23 22:12 Dose: 1 appln Montelukast Sodium (Montelukast Sodium 10 Mg Tablet) 10 mg PO HS [facility] Stop: 01/07/24 21:52 Last Admin: 12/17/23 22:12 Dose: 10 mg Nitrofurantoin Macrocrystals (Nitrofurantoin Monohydrate 100 Mg Cap) 100 mg PO BID [facility]; Protocol Stop: 12/21/23 17:59 Pantoprazole Sodium (Pantoprazole 40 Mg Tab) 40 mg PO [facility]; Protocol Stop: 01/07/24 21:59 Last Admin: 12/17/23 22:09 Dose: 40 mg Polyethylene Glycol (Polyethylene (Miralax) 17 Gm Pack) 17 gm PO DAILY PRN PRN Reason: Constipation Stop: 01/07/24 21:52 Sertraline HCl (Sertraline Hcl 100 Mg Tablet) 150 mg PO HS [facility] Stop: 01/14/24 20:59 Last Admin: 12/17/23 22:09 Dose: 150 mg Sodium Chloride (Sodium Chloride 0.65% Na Soln 45 Ml ([place])) 1 sprays NA Q1HWA PRN PRN Reason: Dryness Stop: 01/12/24 17:49 Tramadol HCl (Tramadol Hcl 50 Mg Tablet) 50 mg PO Q6H PRN PRN Reason: Mod-Sev Pain (Scale 4-10) Stop: 01/07/24 21:52 Last Admin: 12/18/23 05:11 Dose: 50 mg Trimethoprim/Sulfamethoxazole (Sulfamethoxazole/Trimethoprim Ds 800/160mg Tab) 1 tab PO BID [facility]; Protocol Stop: 12/21/23 17:59 Umeclidinium [place] (Umeclidinium [place] 62.5mcg/Blister 7 Puffs/Inhaler) 1 puffs INH DAILY [facility] Stop: 01/09/24 08:59 Last Admin: 12/17/23 09:05 Dose: 1 puffs
[2023-12-18] MEDS: SULFAMETHOXAZOLE/TRIMETHOPRIM DS 800/160MG TAB PO SCH (09:55)
[2023-12-18] MEDS: NITROFURANTOIN MONOHYDRATE 100 MG CAP PO SCH (14:31)
[2023-12-18] MEDS: LORazepam 0.5 MG TAB PO SCH (20:38)
[2023-12-19] MEDS: PHENAZOPYRIDINE HCL 200 MG TAB PO STA (05:02)
[2023-12-19] MEDS: MoRPHine SULFATE 2 MG/ML CARP IV STA (06:23)
--- NOTE | 2023-12-19 09:20 | Hospitalist Progress Note ---
Date of Service December 19, 2023 Assessment & Plan (1) COVID-19: (2) COPD exacerbation: (3) Chronic respiratory failure with hypoxia: (4) Acute on chronic diastolic (congestive) heart failure: (5) Hypophosphatemia: (6) PAF (paroxysmal atrial fibrillation): (7) Anxiety and depression: (8) Dementia: (9) Chronic pain: (10) Chronic anemia: Plan Patient is a 63yoF with PMHx significant for COPD, chronic hypoxic respiratory failure on chronic 4-5 L oxygen, paroxysmal atrial fibrillation anticoagulated with Eliquis, chronic diastolic heart failure, anxiety, depression, dementia, chronic pain and chronic anemia who presented to the ER with URI symptoms in the setting of a covid infection. Acute on chronic hypoxic hypercapnic respiratory failure COVID-19 COPD exacerbation In ER T: 37.6 C, P: 82, R: 15, BP 106/65, 99% on 5 L nasal cannula WBC wnl, lactate and procalcitonin WNL vbg: pH: 7.29, pCO2: 73, HCO3: 35 CXR: No acute disease but does note cardiomegaly CT chest PE protocol showing no acute changes, no PE Blood Cx x 2 NGTD Sputum Cx no sig growth In ER empirically treated with cefepime, received hour-long nebulizer, Solu- Medrol 125 mg, IV Tylenol, Mucinex Treated with Solu-Medrol 40 mg Q8H for COPD exacerbation, tapered down as tolerated before switching to dexamethasone per Pulm recs Scheduled duonebs, incentive spirometry, flutter valve, Mucinex and other supportive measures for covid Continued Zithromax 500mg daily for 3 days 12/15 - reports sputum production. will repeat sputum cultx. Breathing not improved per pt. She has rhonchi and wheezes on exam, repeat CXR - negat. for acute disease. Pt requires bipap support based on vbg, states cannot tolerate. Respiratory contacted, pulm consulted- appreciate recs. Continue bipap as tolerated (strongly recommended and pt aware, reiterated by pulm and respiratory), AM VBG 12/10- VBG improved today as pt used bipap overnight. Agreeable to using again tonight. Per pulm, can switch to Dexamethasone for covid-19 support, avoid hyperoxygenation. Continue bipap use. Pulm recommending repeat psych consult to discuss her chronic use of benzos which can suppress respiratory drive as well. Appreciate recs 12/11- VBG a little worse than the day before, pt notes she used the bipap overnight. Agreeable to using during the day today after another lorin discussion. Psychiatry consult placed as chronic benzo use likely playing a factor in her respiratory status but pt remains extremely anxious, appreciate further recs. Continue Dexamethasone, bipap 12/12- VBG improved significantly with use of bipap throughout the day before. Continued with IV Dexamethasone 12/13-Stable symptoms, continue with Dexamethasone 12/14- stable, Encourage bipap use. Nocturnal pulse ox study ordered with AM ABG. Follow in AM. 12/15 - Rx for bipap signed Acute on chronic diastolic (congestive) heart failure Cardiomegaly BNP: 354, trop wnl Chest xray noting cardiomegaly CT chest PE protocol no acute changes, no PE Last echo 08/2023- noted EF 65-70%, mild LVH, Grade 1 diastolic dysfunction, mild tricuspid regurg, no pulm HTN Repeat echo noting LVH, EF 60-65% In ER given 40 mg Lasix IV. Herrera catheter placed and patient starting to diurese Monitor I's and O's, daily weights (Home dose of lasix was 40mg MWF & increased to 40mg BID on 12/06/23) Monitor response of diuresis, likely will need further lasix doses 12/10- pt restarted on home lasix dose 40mg BID 12/11- continue lasix, monitor I&Os, daily weights 12/12 stable, weight down from 146 on admission to 138 today 12/13- stable 12/14- weight stable, continue home lasix Chest Pain Pt stated she was having chest pain on 12/[address] reviewed with no acute changes Pt very anxious at that time, given her Ativan dose Continue to monitor Remains stable UTI Pt reported urinary symptoms and UA/ ucultx were obtained Herrera placed on admission sample questionable however positive for Kleb aerogenes and E. faecium Pt reports suprapubic tenderness Discussed with pt that ideally we would remove herrera at this time, and repeat urine collection, she is very upset and cries at possibility of removing herrera. Also discussed that catheter puts her in risk of infection, however she absolutely does not wish for it to be removed. Started treatment w/ cefepime and dapto - discussed w/ pharmacy and pt's RN in detail Switched to PO abx - bactrim and macrobid 12/19- reports suprapubic and lower abd. pain- agreed to remove Herrera. Herrera now removed. Will repeat UA. Will obtain CT abd/pelvis Iron Deficiency Anemia Chronic anemia History of GI bleed in 07/2023 History of chronic anemia. History iron deficiency anemia H/H: 8.7 on admission, down from 9.6 on 11/26/2023 Iron level of 13, given IV Venofer, continue iron supplement at this time Folate and B12 levels currently wnl Continue to monitor PCP follow up Hypophosphatemia Phosphate: 1.9 on admission Replete as needed PAF (paroxysmal atrial fibrillation) On metoprolol for rate control Anticoagulated on Eliquis Continue Eliquis and metoprolol with holding parameters Anxiety and depression Continue sertraline, buspirone, lorazepam 12/10- consult placed to psych once more for lorazepam reevaluation in setting of respiratory issues noted above. 12/11- awaiting further psych recs, appreciated 12/12- awaiting further psych recs as her scheduled lorazepam is further worsening her respiratory acidosis for which bipap is absolutely needed (vs. a tracheostomy per pulm) and pt struggles to use the bipap. However, with her severe anxiety, alternative treatment is needed . Appreciate recs. 12/13-case discussed with pulm and Psych. Psych recs in chart: increase seroquel to 100mg daily for 2 days then if tolerates increase to 150mg. Increase buspar to 10mg TID. Wean lorazepam by 0.5 mg every 2 days (i.e., 0.5 mg TID x 2 days, 0.25 mg QID x 2 days, 0.25 mg BID x 2 days, then stop). 12/14- day 2 today of increased seroquel at 100mg, tolerating. Day two of lorazepam of 0.5mg TID. 12/15- increased sertraline to 150mg and decrease lorazepam to 0.25mg QID for 2 days per psychiatry recs. In addition, hydroxyzine started by psychiatry as well. 12/18 - increased lorazepam to 0.5 TID after discussing w/ psychiatry Dementia Continue donepezil Chronic pain chronic left hip and left leg pain LLE negative for DVT on doppler US Continue gabapentin, baclofen and tramadol as needed Scheduled Tylenol for now Continue other home meds as ordered. Diet:HH/Low sodium DVT Prophylaxis:On Eliquis Dispo: PT/OT orders placed, CM involved in DC needs Admission and Anticipated Discharge Date Admission Date: December 08, 2023 Subjective Pt was seen in follow up of covid 19 , anxiety (seen by psych), need for poss. bipap (seen by pulm) laying in bed, on suppl. O2. Previously discussed with psychiatry and pulm- decision to wean lorazepam. Pt seen by psychiatry re: anxiety psych liason currently present at the bedside with pt's RN as well. Urine cultx positive - pt has currently Herrera placed since admission - she does not wish for it to be removed, She reports suprapubic pain and is treated for UTI. Agreed to remove Herrera so that we can further evaluate and repeat UA. Herrera removed today. Also reports lower abd. pain - will repeat CT abd/pelvis Worked with PT - was able to stand up from bed. [facility] aware - worried about pt's participation, and so not accepting the pt. Discussed w/ psychiatry - increased lorazepam to 0.5 tid and cont. to monitor Review of Systems Review of Systems: All systems reviewed & are unremarkable except as noted in Subjective Physical Exam Physical Exam: General: morbidly obese F in NAD, on suppl. O2 Psych: anxious at times Neuro: difficulty with movements in bed HEENT: NC/AT, NC -suppl. O2 CV: RRR Resp: mild rhonchi bilaterally, mild scattered wheezes bilaterally (improved) Abdomen: Soft, obese, nontender, + bowel sounds Extremities: mild Edema in lower extremities bilaterally (improved). Results & Data Results & Data Vital Signs (Past 12 Hours) Vital Signs Temp Pulse Pulse Resp BP Pulse Ox O2 Del Method 12/19/23 08:50 36.8 C 75 18 122/74 93 Nasal Cannula 12/19/23 07:42 88 18 93 Nasal Cannula 12/19/23 03:53 36.7 C 73 18 127/73 93 Nasal Cannula 12/18/23 22:40 78 16 93 Nasal Cannula 12/18/23 22:20 36.9 C 80 18 121/76 90 Nasal Cannula 12/18/23 22:00 77 O2 Flow Rate 12/19/23 08:50 4 12/19/23 07:42 3 12/19/23 03:53 3 12/18/23 22:40 3 12/18/23 22:20 3 12/18/23 22:00 Medications Administered Current Inpatient Medications Acetaminophen (Acetaminophen 500 Mg Tab) 1,000 mg PO Q8H [facility] Stop: 01/09/24 01:59 Last Admin: 12/18/23 17:12 Dose: 1,000 mg Albuterol (Albut/Ipratrop 3mg/0.5mg Neb 3 Ml Vial) 3 ml NEB Q8R [facility]; Protocol Stop: 01/08/24 22:59 Last Admin: 12/19/23 07:41 Dose: 3 ml Apixaban (Apixaban 5 Mg Tablet) 5 mg PO Q12 [facility] Stop: 01/08/24 08:59 Last Admin: 12/18/23 20:31 Dose: 5 mg Ascorbic Acid (Ascorbic Acid 500 Mg Tab) 500 mg PO DAILY [facility] Stop: 01/09/24 08:59 Last Admin: 12/18/23 09:56 Dose: 500 mg Baclofen (Baclofen 10 Mg Tab) 10 mg PO TID PRN PRN Reason: .muscle spasm Stop: 01/07/24 21:52 Last Admin: 12/18/23 20:28 Dose: 10 mg Buspirone HCl (Buspirone 5 Mg Tab) 10 mg PO TID [facility] Stop: 01/12/24 13:59 Last Admin: 12/18/23 20:30 Dose: 10 mg Donepezil HCl (Donepezil Hcl 10 Mg Tab) 10 mg PO QAM [facility] Stop: 01/08/24 08:59 Last Admin: 12/18/23 09:55 Dose: 10 mg Ergocalciferol (Ergocalciferol 1250 Mcg (50,000 Units) Cap) 1,250 mcg PO Q7D@0900 [facility] Stop: 01/22/24 08:59 Ferrous Sulfate (Ferrous Sulfate 325 Mg Tab) 650 mg PO DAILY [facility] Stop: 01/09/24 08:59 Last Admin: 12/16/23 09:17 Dose: 650 mg Furosemide (Furosemide 40 Mg Tab) 40 mg PO BID17 [facility] Stop: 01/10/24 08:59 Last Admin: 12/18/23 17:12 Dose: 40 mg Gabapentin (Gabapentin 300 Mg Cap) 300 mg PO TID [facility] Stop: 01/07/24 21:52 Last Admin: 12/18/23 20:28 Dose: 300 mg Guaifenesin (Guaifenesin 600 Mg Tabcr) 1,200 mg PO Q12 [facility] Stop: 01/08/24 08:59 Last Admin: 12/18/23 20:28 Dose: 1,200 mg Hydroxyzine HCl (Hydroxyzine Hcl 25 Mg Tab) 25 mg PO Q4H PRN PRN Reason: Anxiety Stop: 01/12/24 11:08 Last Admin: 12/17/23 02:04 Dose: 25 mg Dexamethasone 6 mg/ Syringe 1.5 mls @ 1 mls/min IV Q24H [facility] Stop: 01/10/24 01:59 Last Admin: 12/19/23 05:04 Dose: 1 mls/min Lactobacillus Acidophilus (Advanced Probiotic 1250 Mg Capsule) 2 cap PO DAILY [facility] Stop: 01/14/24 10:14 Last Admin: 12/18/23 09:55 Dose: 2 cap Loperamide HCl (Loperamide Hcl 2 Mg Cap) 2 mg PO Q6H PRN PRN Reason: Diarrhea Stop: 01/11/24 10:52 Last Admin: 12/15/23 23:29 Dose: 2 mg Lorazepam (Lorazepam 0.5 Mg Tab) 0.5 mg PO TID [facility] Stop: 01/17/24 20:59 Last Admin: 12/18/23 20:38 Dose: 0.5 mg Melatonin (Melatonin 3 Mg Tab) 3 mg PO HS PRN PRN Reason: Sleep Stop: 01/08/24 20:23 Last Admin: 12/16/23 20:51 Dose: 3 mg Metoprolol Succinate (Metoprolol Succ 25mg Ext Rel Tab) 25 mg PO QAM [facility] Stop: 01/08/24 08:59 Last Admin: 12/18/23 09:56 Dose: 25 mg Miconazole Nitrate (Miconazole Nitrate Powder 85 Gm) 1 appln EXT TID [facility] Stop: 01/09/24 08:59 Last Admin: 12/18/23 20:34 Dose: 1 appln Montelukast Sodium (Montelukast Sodium 10 Mg Tablet) 10 mg PO HS [facility] Stop: 01/07/24 21:52 Last Admin: 12/18/23 20:29 Dose: 10 mg Nitrofurantoin Macrocrystals (Nitrofurantoin Monohydrate 100 Mg Cap) 100 mg PO BID [facility]; Protocol Stop: 12/21/23 17:59 Last Admin: 12/18/23 20:31 Dose: 100 mg Pantoprazole Sodium (Pantoprazole 40 Mg Tab) 40 mg PO AMHS [facility]; Protocol Stop: 01/07/24 21:59 Last Admin: 12/18/23 20:29 Dose: 40 mg Polyethylene Glycol (Polyethylene (Miralax) 17 Gm Pack) 17 gm PO DAILY PRN PRN Reason: Constipation Stop: 01/07/24 21:52 Sertraline HCl (Sertraline Hcl 100 Mg Tablet) 150 mg PO HS [facility] Stop: 01/14/24 20:59 Last Admin: 12/18/23 20:30 Dose: 150 mg Sodium Chloride (Sodium Chloride 0.65% Na Soln 45 Ml ([place])) 1 sprays NA Q1HWA PRN PRN Reason: Dryness Stop: 01/12/24 17:49 Tramadol HCl (Tramadol Hcl 50 Mg Tablet) 50 mg PO Q6H PRN PRN Reason: Mod-Sev Pain (Scale 4-10) Stop: 01/07/24 21:52 Last Admin: 12/19/23 04:21 Dose: 50 mg Trimethoprim/Sulfamethoxazole (Sulfamethoxazole/Trimethoprim Ds 800/160mg Tab) 1 tab PO BID [facility]; Protocol Stop: 12/21/23 17:59 Last Admin: 12/18/23 20:29 Dose: 1 tab Umeclidinium [place] (Umeclidinium [place] 62.5mcg/Blister 7 Puffs/Inhaler) 1 puffs INH DAILY [facility] Stop: 01/09/24 08:59 Last Admin: 12/18/23 09:54 Dose: 1 puffs
[2023-12-19] MEDS: oxyCODONE HCL IR 5 MG TAB (IMMEDIATE RELEASE) PO STA (11:11)
[2023-12-19 19:32] LABS: Hematocrit (blood only) 31.4 % (37.0-47.0); Hemoglobin 10.1 g/dl (12.0-16.0); Mean Corpuscular Hemoglobin 30.9 pg (25.0-34.0); Mean Corpuscular Hgb Conc 32.2 g/dL (32.0-36.0); Mean Platelet Volume 8.5 fL (9.4-12.4); Nucleated RBC # (auto) 0.04 K/uL (0.00-0.12); Nucleated RBC % (auto) 0.3 %; Platelet Count 564 K/uL (130-400); RDW Coefficient of Variation 22.3 % (11.5-14.5); RDW Standard Deviation 79.6 fL (36.4-46.3); Red Blood Count 3.27 M/uL (4.20-5.40); White Blood Count 15.98 K/ul (4.8-10.8)
[2023-12-19 19:54] LABS: BUN Creatinine Ratio 22.4 (10-20); Calcium 9.2 mg/dl (8.6-10.3); Creatinine Clr Calc Pharmacy 56.4 ml/min; Est GFR (African American) 48.7 ml/min; Est GFR (Non-African American) 42.1 ml/min; Potassium 4.3 mmol/L (3.5-5.1)
[2023-12-19] MEDS: oxyCODONE HCL IR 5 MG TAB (IMMEDIATE RELEASE) PO PRN (23:23)
[2023-12-20 06:25] LABS: Hematocrit (blood only) 33.9 % (37.0-47.0); Hemoglobin 10.5 g/dl (12.0-16.0); Mean Corpuscular Hemoglobin 30.4 pg (25.0-34.0); Mean Corpuscular Volume 98.3 fL (80.0-100.0); Mean Platelet Volume 8.5 fL (9.4-12.4); Nucleated RBC # (auto) 0.03 K/uL (0.00-0.12); Nucleated RBC % (auto) 0.2 %; Platelet Count 591 K/uL (130-400); RDW Coefficient of Variation 22.3 % (11.5-14.5); RDW Standard Deviation 80.7 fL (36.4-46.3); Red Blood Count 3.45 M/uL (4.20-5.40); White Blood Count 14.06 K/ul (4.8-10.8)
[2023-12-20 06:41] LABS: BUN Creatinine Ratio 28.4 (10-20); Calcium 9.2 mg/dl (8.6-10.3); Creatinine Clr Calc Pharmacy 73.8 ml/min; Est GFR (African American) 67.8 ml/min; Est GFR (Non-African American) 58.5 ml/min; Magnesium 2.1 mg/dl (1.7-2.4); Phosphorus 4.5 mg/dl (2.5-4.9)
--- NOTE | 2023-12-20 07:43 | Hospitalist Progress Note ---
Date of Service December 20, 2023 Assessment & Plan (1) COVID-19: (2) COPD exacerbation: (3) Chronic respiratory failure with hypoxia: (4) Acute on chronic diastolic (congestive) heart failure: (5) Hypophosphatemia: (6) PAF (paroxysmal atrial fibrillation): (7) Anxiety and depression: (8) Dementia: (9) Chronic pain: (10) Chronic anemia: Plan Patient is a 63yoF with PMHx significant for COPD, chronic hypoxic respiratory failure on chronic 4-5 L oxygen, paroxysmal atrial fibrillation anticoagulated with Eliquis, chronic diastolic heart failure, anxiety, depression, dementia, chronic pain and chronic anemia who presented to the ER with URI symptoms in the setting of a covid infection. Acute on chronic hypoxic hypercapnic respiratory failure COVID-19 COPD exacerbation In ER T: 37.6 C, P: 82, R: 15, BP 106/65, 99% on 5 L nasal cannula WBC wnl, lactate and procalcitonin WNL vbg: pH: 7.29, pCO2: 73, HCO3: 35 CXR: No acute disease but does note cardiomegaly CT chest PE protocol showing no acute changes, no PE Blood Cx x 2 NGTD Sputum Cx no sig growth In ER empirically treated with cefepime, received hour-long nebulizer, Solu- Medrol 125 mg, IV Tylenol, Mucinex Treated with Solu-Medrol 40 mg Q8H for COPD exacerbation, tapered down as tolerated before switching to dexamethasone per Pulm recs Scheduled duonebs, incentive spirometry, flutter valve, Mucinex and other supportive measures for covid Continued Zithromax 500mg daily for 3 days 12/15 - reports sputum production. will repeat sputum cultx. Breathing not improved per pt. She has rhonchi and wheezes on exam, repeat CXR - negat. for acute disease. Pt requires bipap support based on vbg, states cannot tolerate. Respiratory contacted, pulm consulted- appreciate recs. Continue bipap as tolerated (strongly recommended and pt aware, reiterated by pulm and respiratory), AM VBG 12/10- VBG improved today as pt used bipap overnight. Agreeable to using again tonight. Per pulm, can switch to Dexamethasone for covid-19 support, avoid hyperoxygenation. Continue bipap use. Pulm recommending repeat psych consult to discuss her chronic use of benzos which can suppress respiratory drive as well. Appreciate recs 12/11- VBG a little worse than the day before, pt notes she used the bipap overnight. Agreeable to using during the day today after another lorin discussion. Psychiatry consult placed as chronic benzo use likely playing a factor in her respiratory status but pt remains extremely anxious, appreciate further recs. Continue Dexamethasone, bipap 12/12- VBG improved significantly with use of bipap throughout the day before. Continued with IV Dexamethasone 12/13-Stable symptoms, continue with Dexamethasone 12/14- stable, Encourage bipap use. Nocturnal pulse ox study ordered with AM ABG. Follow in AM. Acute on chronic diastolic (congestive) heart failure Cardiomegaly BNP: 354, trop wnl Chest xray noting cardiomegaly CT chest PE protocol no acute changes, no PE Last echo 08/2023- noted EF 65-70%, mild LVH, Grade 1 diastolic dysfunction, mild tricuspid regurg, no pulm HTN Repeat echo noting LVH, EF 60-65% In ER given 40 mg Lasix IV. Herrera catheter placed and patient starting to diurese Monitor I's and O's, daily weights (Home dose of lasix was 40mg MWF & increased to 40mg BID on 12/06/23) Monitor response of diuresis, likely will need further lasix doses 12/10- pt restarted on home lasix dose 40mg BID 12/11- continue lasix, monitor I&Os, daily weights 12/12 stable, weight down from 146 on admission to 138 today 12/13- stable 12/14- weight stable, continue home lasix Chest Pain Pt stated she was having chest pain on 12/[address] reviewed with no acute changes Pt very anxious at that time, given her Ativan dose Continue to monitor Remains stable UTI Pt reported urinary symptoms and UA/ ucultx were obtained Herrera placed on admission sample questionable however positive for Kleb aerogenes and E. faecium Pt reports suprapubic tenderness Discussed with pt that ideally we would remove herrera at this time, and repeat urine collection, she is very upset and cries at possibility of removing herrera. Also discussed that catheter puts her in risk of infection, however she absolutely does not wish for it to be removed. Started treatment w/ cefepime and dapto - discussed w/ pharmacy and pt's RN in detail Switched to PO abx - bactrim and macrobid 12/19- reports suprapubic and lower abd. pain- agreed to remove Herrera. Herrera now removed. Will repeat UA. Will obtain CT abd/pelvis CT abd./pelvis (12/20) - 1. No acute intra-abdominal or intrapelvic abnormality. 2. No bowel obstruction or bowel wall thickening. UA - negative Iron Deficiency Anemia Chronic anemia History of GI bleed in 07/2023 History of chronic anemia. History iron deficiency anemia H/H: 8.7 on admission, down from 9.6 on 11/26/2023 Iron level of 13, given IV Venofer, continue iron supplement at this time Folate and B12 levels currently wnl Continue to monitor PCP follow up Hypophosphatemia Phosphate: 1.9 on admission Replete as needed PAF (paroxysmal atrial fibrillation) On metoprolol for rate control Anticoagulated on Eliquis Continue Eliquis and metoprolol with holding parameters Anxiety and depression Continue sertraline, buspirone, lorazepam 12/10- consult placed to psych once more for lorazepam reevaluation in setting of respiratory issues noted above. 12/11- awaiting further psych recs, appreciated 12/12- awaiting further psych recs as her scheduled lorazepam is further worsening her respiratory acidosis for which bipap is absolutely needed (vs. a tracheostomy per pulm) and pt struggles to use the bipap. However, with her severe anxiety, alternative treatment is needed . Appreciate recs. 12/13-case discussed with pulm and Psych. Psych recs in chart: increase seroquel to 100mg daily for 2 days then if tolerates increase to 150mg. Increase buspar to 10mg TID. Wean lorazepam by 0.5 mg every 2 days (i.e., 0.5 mg TID x 2 days, 0.25 mg QID x 2 days, 0.25 mg BID x 2 days, then stop). 12/14- day 2 today of increased seroquel at 100mg, tolerating. Day two of lorazepam of 0.5mg TID. 12/15- increased sertraline to 150mg and decrease lorazepam to 0.25mg QID for 2 days per psychiatry recs. In addition, hydroxyzine started by psychiatry as well. 2/3 - increased lorazepam to 0.5 TID after discussing w/ psychiatry Dementia Continue donepezil Chronic pain chronic left hip and left leg pain LLE negative for DVT on doppler US Continue gabapentin, baclofen and tramadol as needed Scheduled Tylenol for now Continue other home meds as ordered. Diet: HH/Low sodium DVT Prophylaxis:On Eliquis Dispo: PT/OT orders placed, CM involved in DC needs Admission and Anticipated Discharge Date Admission Date: December 08, 2023 Subjective Pt was seen in follow up of covid 19 , anxiety (seen by psych), need for poss. bipap (seen by pulm) laying in bed, on suppl. O2. Previously discussed with psychiatry and pulm- decision to wean lorazepam. Pt seen by psychiatry re: anxiety Herrera removed yesterday and as pt reported lower abd. pain - repeated CT abd/pelvis - whcih was negative. Repeated UA - negat. Worked with PT - was able to stand up from bed. [facility] aware - worried about pt's participation, and so not accepting the pt. CM involved. Discussed w/ psychiatry - increased lorazepam to 0.5 tid and cont. to monitor Review of Systems Review of Systems: All systems reviewed & are unremarkable except as noted in Subjective Physical Exam Physical Exam: General: morbidly obese F in NAD, on suppl. O2 Psych: anxious at times Neuro: difficulty with movements in bed HEENT: NC/AT, NC -suppl. O2 CV: RRR Resp: mild rhonchi bilaterally, mild scattered wheezes bilaterally (improved) Abdomen: Soft, obese, nontender, + bowel sounds Extremities: mild Edema in lower extremities bilaterally (improved). Results & Data Results & Data Vital Signs (Past 12 Hours) Vital Signs Temp Pulse Pulse Resp BP Pulse Ox O2 Del Method 12/20/23 07:12 68 16 95 Nasal Cannula 12/20/23 03:43 36.7 C 64 18 111/78 96 Nasal Cannula 12/20/23 02:06 70 20 92 Nasal Cannula 12/20/23 01:39 Nasal Cannula 12/19/23 23:29 36.5 C 68 21 130/79 92 Nasal Cannula 12/19/23 22:43 64 12/19/23 22:27 76 18 93 Nasal Cannula 12/19/23 19:45 Nasal Cannula O2 Flow Rate 12/20/23 07:12 3 12/20/23 03:43 3 12/20/23 02:06 3 12/20/23 01:39 3 12/19/23 23:29 3 12/19/23 22:43 12/19/23 22:27 3 12/19/23 19:45 3 Laboratory Results 12/20/23 12/19/23 Range/Units 05:53 19:13 WBC 14.06 H 15.98 H (4.8-10.8) K/ul RBC 3.45 L 3.27 L (4.20-5.40) M/uL Hgb 10.5 L 10.1 L (12.0-16.0) g/dl Hct 33.9 L 31.4 L (37.0-47.0) % MCV 98.3 96.0 (80.0-100.0) fL MCH 30.4 30.9 (25.0-34.0) pg MCHC 31.0 L 32.2 (32.0-36.0) g/dL RDW Std Deviation 80.7 H 79.6 H (36.4-46.3) fL RDW Coeff of Ursula 22.3 H 22.3 H (11.5-14.5) % Plt Count 591 H 564 H (130-400) K/uL MPV 8.5 L 8.5 L (9.4-12.4) fL Absolute Nucleated RBC 0.03 0.04 (0.00-0.12) K/uL Nucleated RBC % (auto) 0.2 0.3 % Sodium 135 L 133 L (136-145) mmol/L Potassium 4.0 4.3 (3.5-5.1) mmol/L Chloride 88 L 86 L (98-107) mmol/L Carbon Dioxide 41 H* 36 H (21-32) mmol/L Anion Gap 6 11 (3-11) BUN 29 H 30 H (6-23) mg/dl Creatinine 1.02 D 1.34 H D (0.6-1.2) mg/dl Est Cr Clr Drug Dosing 73.8 56.4 ml/min Est GFR ( Amer) 67.8 48.7 ml/min Est GFR (Non-Af Amer) 58.5 42.1 ml/min BUN/Creatinine Ratio 28.4 H 22.4 H (10-20) Glucose 107 H 201 H (70-99(Fasting)) mg/dl Calcium 9.2 9.2 (8.6-10.3) mg/dl Phosphorus 4.5 (2.5-4.9) mg/dl Magnesium 2.1 (1.7-2.4) mg/dl Medications Administered Current Inpatient Medications Acetaminophen (Acetaminophen 500 Mg Tab) 1,000 mg PO Q8H [facility] Stop: 01/09/24 01:59 Last Admin: 12/20/23 01:25 Dose: 1,000 mg Albuterol (Albut/Ipratrop 3mg/0.5mg Neb 3 Ml Vial) 3 ml NEB Q8R [facility]; Protocol Stop: 01/08/24 22:59 Last Admin: 12/20/23 07:12 Dose: 3 ml Apixaban (Apixaban 5 Mg Tablet) 5 mg PO Q12 [facility] Stop: 01/08/24 08:59 Last Admin: 12/19/23 22:01 Dose: 5 mg Ascorbic Acid (Ascorbic Acid 500 Mg Tab) 500 mg PO DAILY [facility] Stop: 01/09/24 08:59 Last Admin: 12/19/23 10:26 Dose: 500 mg Baclofen (Baclofen 10 Mg Tab) 10 mg PO TID PRN PRN Reason: .muscle spasm Stop: 01/07/24 21:52 Last Admin: 12/19/23 22:00 Dose: 10 mg Buspirone HCl (Buspirone 5 Mg Tab) 10 mg PO TID [facility] Stop: 01/12/24 13:59 Last Admin: 12/19/23 22:00 Dose: 10 mg Donepezil HCl (Donepezil Hcl 10 Mg Tab) 10 mg PO QAM [facility] Stop: 01/08/24 08:59 Last Admin: 12/19/23 10:24 Dose: 10 mg Ergocalciferol (Ergocalciferol 1250 Mcg (50,000 Units) Cap) 1,250 mcg PO Q7D@0900 [facility] Stop: 01/22/24 08:59 Ferrous Sulfate (Ferrous Sulfate 325 Mg Tab) 650 mg PO DAILY [facility] Stop: 01/09/24 08:59 Last Admin: 12/16/23 09:17 Dose: 650 mg Furosemide (Furosemide 40 Mg Tab) 40 mg PO BID17 [facility] Stop: 01/10/24 08:59 Last Admin: 12/19/23 15:23 Dose: 40 mg Gabapentin (Gabapentin 300 Mg Cap) 300 mg PO TID [facility] Stop: 01/07/24 21:52 Last Admin: 12/19/23 22:02 Dose: 300 mg Guaifenesin (Guaifenesin 600 Mg Tabcr) 1,200 mg PO Q12 [facility] Stop: 01/08/24 08:59 Last Admin: 12/19/23 21:59 Dose: 1,200 mg Hydroxyzine HCl (Hydroxyzine Hcl 25 Mg Tab) 25 mg PO Q4H PRN PRN Reason: Anxiety Stop: 01/12/24 11:08 Last Admin: 12/17/23 02:04 Dose: 25 mg Lactobacillus Acidophilus (Advanced Probiotic 1250 Mg Capsule) 2 cap PO DAILY [facility] Stop: 01/14/24 10:14 Last Admin: 12/19/23 10:24 Dose: 2 cap Loperamide HCl (Loperamide Hcl 2 Mg Cap) 2 mg PO Q6H PRN PRN Reason: Diarrhea Stop: 01/11/24 10:52 Last Admin: 12/15/23 23:29 Dose: 2 mg Lorazepam (Lorazepam 0.5 Mg Tab) 0.5 mg PO TID [facility] Stop: 01/17/24 20:59 Last Admin: 12/19/23 21:59 Dose: 0.5 mg Melatonin (Melatonin 3 Mg Tab) 3 mg PO HS PRN PRN Reason: Sleep Stop: 01/08/24 20:23 Last Admin: 12/16/23 20:51 Dose: 3 mg Metoprolol Succinate (Metoprolol Succ 25mg Ext Rel Tab) 25 mg PO QAM [facility] Stop: 01/08/24 08:59 Last Admin: 12/19/23 10:26 Dose: 25 mg Miconazole Nitrate (Miconazole Nitrate Powder 85 Gm) 1 appln EXT TID [facility] Stop: 01/09/24 08:59 Last Admin: 12/19/23 22:03 Dose: 1 appln Montelukast Sodium (Montelukast Sodium 10 Mg Tablet) 10 mg PO HS [facility] Stop: 01/07/24 21:52 Last Admin: 12/19/23 22:01 Dose: 10 mg Nitrofurantoin Macrocrystals (Nitrofurantoin Monohydrate 100 Mg Cap) 100 mg PO BID [facility]; Protocol Stop: 12/21/23 17:59 Last Admin: 12/19/23 22:02 Dose: 100 mg Oxycodone HCl (Oxycodone Hcl Ir 5 Mg Tab (Immediate Release)) 5 mg PO Q6H PRN PRN Reason: Pain Stop: 01/02/24 23:00 Last Admin: 12/19/23 23:23 Dose: 5 mg Pantoprazole Sodium (Pantoprazole 40 Mg Tab) 40 mg PO AMHS [facility]ARY; Protocol Stop: 01/07/24 21:59 Last Admin: 12/19/23 22:00 Dose: 40 mg Polyethylene Glycol (Polyethylene (Miralax) 17 Gm Pack) 17 gm PO DAILY PRN PRN Reason: Constipation Stop: 01/07/24 21:52 Sertraline HCl (Sertraline Hcl 100 Mg Tablet) 150 mg PO HS [facility] Stop: 01/14/24 20:59 Last Admin: 12/19/23 22:00 Dose: 150 mg Sodium Chloride (Sodium Chloride 0.65% Na Soln 45 Ml ([place])) 1 sprays NA Q1HWA PRN PRN Reason: Dryness Stop: 01/12/24 17:49 Trimethoprim/Sulfamethoxazole (Sulfamethoxazole/Trimethoprim Ds 800/160mg Tab) 1 tab PO BID [facility]; Protocol Stop: 12/21/23 17:59 Last Admin: 12/19/23 22:03 Dose: 1 tab Umeclidinium [place] (Umeclidinium [place] 62.5mcg/Blister 7 Puffs/Inhaler) 1 puffs INH DAILY [facility] Stop: 01/09/24 08:59 Last Admin: 12/19/23 10:24 Dose: 1 puffs
[2023-12-20] MEDS: OPTIRAY 320 500ml IV ONE (09:40)
--- NOTE | 2023-12-20 10:12 | CT Scan Report ---
ABDOMEN AND PELVIS CT WITH IV CONTRAST CT DOSE: 1394.82 mGy.cm HISTORY: Acute generalized abdominal pain abd. pain TECHNIQUE: Multiaxial CT images of the abdomen and pelvis were performed following the IV administrat ion of 89 cc of Optiray, A dose lowering technique was utilized adhering to the principles of ALARA. COMPARISON STUDY: [facility]UB 12/16/2023, CT abdomen and pelvis 11/16/2023 FINDINGS: Mild bibasilar mucous plugging. No free air. Unremarkable spleen, pancreas and liver with p robable hepatic steatosis. Cholecystectomy. Patent portal vein. Thickening of the left greater than r ight adrenal glands bilateral adrenal gland nodule redemonstrated measuring up to 1.9 cm on the left and 1.7 cm on the right compatible with adenomata. Mild cortical thinning of the kidneys with areas of parenchymal scarring. No hydronephrosis. Decompre ssed urinary bladder with mild wall thickening. Hysterectomy. Atherosclerosis of the aorta without an eurysm. There is no lymphadenopathy. No bowel obstruction or bowel wall thickening. No ascites or mes enteric inflammation. Metallic density focus noted within the hepatic flexure on image 127 is unchang ed from prior suggestive of endoscopy clip. Normal appendix. Unremarkable soft tissues. No acute frac ture. IMPRESSION: 1. No acute intra-abdominal or intrapelvic abnormality. 2. No bowel obstruction or bowel wall thickening. 3. Additional findings as above. ACT 112: Negative or not required by law. The above report was generated using voice recognition software. It may contain grammatical, syntax o r spelling errors. Electronically signed by: Alvarez Peters M.D. 12/20/2023 10:10 AM
[2023-12-20 11:55] LABS: Appearance Urine Clear (Clear); Bacteria Urine Automated Negative (Negative); Bilirubin Urine Negative (Negative); Blood Urine Negative (Negative); Cast Urine Automated 0 /lpf (0-5); Color Urine Dark Yellow; Epithelial Cell Urine Auto >30 /lpf (0-5); Glucose Urine UA Negative (Negative); Ketones Urine Negative (Negative); Leukocyte Esterase Urine Trace (Negative); Nitrite Urine Negative (Negative); Protein Urine Negative (Negative); RBC Urine Automated 0-4 /hpf (0-4); Urobilinogen Urine Negative (Negative); pH Urine 7.5 (4.5-7.5)
[2023-12-21] MEDS ORDERED: ALBUT/IPRATROP 3MG/0.5MG NEB 3 ML VIAL NEB PRN (02:18)
[2023-12-21 06:16] LABS: Basophils # (auto) 0.06 K/uL (0.00-0.20); Basophils % (auto) 0.5 %; Eosinophils # (auto) 0.16 K/uL (0.00-0.50); Eosinophils % (auto) 1.4 %; Hematocrit (blood only) 33.4 % (37.0-47.0); Hemoglobin 10.5 g/dl (12.0-16.0); Immature Granulocytes # (auto) 0.55 K/uL (0.01-0.20); Immature Granulocytes % (auto) 4.8 %; Mean Corpuscular Hemoglobin 30.4 pg (25.0-34.0); Mean Corpuscular Hgb Conc 31.4 g/dL (32.0-36.0); Mean Corpuscular Volume 96.8 fL (80.0-100.0); Mean Platelet Volume 8.5 fL (9.4-12.4); Monocytes # (auto) 1.02 K/uL (0.11-0.59); Monocytes % (auto) 8.9 %; Neutrophils # (auto) 7.41 K/uL (1.40-6.50); Neutrophils % (auto) 64.4 %; Platelet Count 584 K/uL (130-400); RDW Standard Deviation 79.4 fL (36.4-46.3); Red Blood Count 3.45 M/uL (4.20-5.40)
[2023-12-21 06:20] LABS: BUN Creatinine Ratio 25.8 (10-20); Calcium 9.1 mg/dl (8.6-10.3); Creatinine Clr Calc Pharmacy 63.2 ml/min; Est GFR (African American) 55.7 ml/min; Est GFR (Non-African American) 48.1 ml/min; Magnesium 2.1 mg/dl (1.7-2.4); Phosphorus 4.9 mg/dl (2.5-4.9); Potassium 4.2 mmol/L (3.5-5.1)
[2023-12-21 06:40] LABS: Anisocytosis Present; Polychromasia 1+; Stomatocytes 2+
[2023-12-21 11:06] LABS: Base Excess ABG 13.3 mEq/L (-9-1.8); HCO3 ABG 40 mmol/L (19-24); Oxygen Saturation ABG 96.5 % (90-95); PCO2 ABG 59 mmHg (35-46); PO2 ABG 75 mmHg (80-95); pH ABG 7.44 (7.35-7.45)
[2023-12-21 11:26] LABS: Allen Test Pos (Pos)
--- NOTE | 2023-12-21 11:44 | Pulmonary Consultation ---
Date of Consultation December 21, 2023 Assessment & Plan (1) Obesity hypoventilation syndrome: (2) Chronic respiratory failure with hypoxia and hypercapnia: (3) Physical deconditioning: (4) Difficulty with BiPAP use: Plan 63-year-old female with multiple comorbid conditions including severe anxiety, OHS, chronic hypercapnic and hypoxemic respiratory failure and morbid obesity presenting to the hospital due to lethargy. She was identified as having COVID- 19 on admission. Her ABG today is suggestive of compensated chronic hypercapnic respiratory failure. The patient has been intolerant of BiPAP due to severe anxiety. She is hesitant about using BiPAP in the future. Given the patient's inability to tolerate BiPAP due to her severe anxiety disorder and given that she does not have clear documented COPD, I do not think that she would be a good candidate for BiPAP at this time. Additionally, she does not have acute on chronic decompensated hypercapnic respiratory failure presently and does not require rescue BiPAP at this time. She may certainly be a candidate for AVAPS/trilogy in the future due to her chronic hypercapnic and hypoxemic respiratory failure related to OHS. Again, I am not certain that she would tolerate AVAP/Trilogy and it unclear whether therapy would need to be escalated to this level at this point in time. I think the next best step at this time would be to proceed with an outpatient polysomnography which could be ordered by her PCP. I have no further recommendations. Please call with questions. Thank you. History of Present Illness Reason for Consultation: Assistance with BiPAP management Attending Physician: Mohit Singh MD History of Present Illness Patient was admitted 12/08/2023 and also was recently discharged from the hospital earlier in November due to a UTI E. coli infection. Patient woke up with viral symptoms the day of admission and noted that she had more cough and shortness of breath. She is chronically on 4-5 L of oxygen due to OHS and presumptive COPD. No PFTs available for review. She tested positive for COVID- 19 on 12/04/2023. She was evaluated by my colleague on 12/10/2025 due to hypercapnia. It was noted that the patient refuses BiPAP therapy as she cannot tolerate it. Assistance from pulmonary is requested given her chronic hypercapnic respiratory failure. She has had several ABGs this admission all suggestive of chronic hypercapnic respiratory failure with elevated pCO2. ABG this morning reveals a pH of 7.4, pCO2 59 and pO2 of 75 on 3 L of oxygen. I discussed with bedside nursing, respiratory therapy over the phone and the patient regarding her use of BiPAP. The patient has not used BiPAP since Wednesday evening. At that time she used it for roughly 2 hours. Last week she used her BiPAP for an hour and Wednesday for several hours. Patient relates that she has extreme anxiety due to the mask and the positive pressure from the BiPAP. She notes that she is able to tolerate the nasal pillows at times for brief stents. She is hesitant to retrial BiPAP at night. The patient is essentially bedbound. She notes that she is from home, but is unable to leave her bedroom. She does not ambulate due to profound weakness. She has trouble sitting up in her bed. She denies any dyspnea at rest. She does note occasional paroxysmal episodes of dyspnea. She notes minimal relief from her inhalers. Allergies Allergy/AdvReac Type Severity Reaction Status Date / Time aspirin Allergy Unknown TAKES Verified 12/08/23 17:47 COUMADIN salicylates AdvReac Unknown ?DUE TO Verified 12/08/23 17:47 COUMADIN? Home Medications Medication Instructions Recorded Confirmed Type albuterol sulfate 5 mg/mL(0.5 %) 2.5 mg inhalation DIRECTED PRN 08/20/22 12/08/23 History solution for nebulization Shortness Of Breath Or Wheezing albuterol sulfate 90 mcg/actuation 2 puff inhalation QID PRN sob 08/20/22 12/08/23 History aerosol inhaler omeprazole 20 mg capsule,delayed 20 mg PO AMHS 07/15/23 12/08/23 History release montelukast 10 mg tablet 10 mg PO HS #30 tabs 07/23/23 12/08/23 Rx apixaban 5 mg tablet (Eliquis) 5 mg PO Q12 11/16/23 12/08/23 History baclofen 10 mg tablet 10 mg PO TID PRN .muscle spasm 11/16/23 12/08/23 History cholecalciferol (vitamin D3) 1,250 50,000 unit PO WE 11/16/23 12/08/23 History mcg (50,000 unit) capsule furosemide 40 mg tablet 40 mg PO BID 11/16/23 12/08/23 History ipratropium 0.5 mg-albuterol 3 mg 3 ml inhalation QID PRN Shortness 11/16/23 12/08/23 History (2.5 mg base)/3 mL nebulization Of Breath Or Wheezing soln iron,carbonyl 65 mg-vitamin C 125 2 tab PO QAM 11/16/23 12/08/23 History mg tablet,delayed release (Vitron-C) metoprolol succinate 25 mg 25 mg PO QAM 11/16/23 12/08/23 History tablet,extended release 24 hr mirtazapine 30 mg tablet 30 mg PO HS 11/16/23 12/08/23 History nystatin 100,000 unit/gram topical 1 applic topical BID 11/16/23 12/08/23 His tory powder (Nyamy) sertraline 50 mg tablet 50 mg PO HS 11/16/23 12/08/23 History donepezil 10 mg tablet 10 mg PO QAM #30 tabs 11/26/23 12/08/23 Rx lorazepam 0.5 mg tablet 0.5 mg PO QID #28 tabs 11/26/23 12/08/23 Rx tramadol 50 mg tablet 50 mg PO Q6H PRN pain #20 tabs 11/26/23 12/08/23 Rx buspirone 5 mg tablet 5 mg PO TID 12/08/23 12/08/23 History docusate sodium 100 mg capsule 100 mg PO BID 12/08/23 12/08/23 History gabapentin 300 mg capsule 300 mg PO TID 12/08/23 12/08/23 History Patient History Medical History (Updated 12/21/23 @ 12:30 by Narendra Krishnamurthy MD) Difficulty with BiPAP use Physical deconditioning Chronic respiratory failure with hypoxia and hypercapnia Obesity hypoventilation syndrome Swelling of left hand Encounter for pre-operative examination Sleep apnea mild RUFINA (dx in ) no machine currently -- pt to have another sleep study february 2023. Osteoarthritis Degenerative disc disease Urinary incontinence Peripheral neuropathy Anemia Congestive heart failure follows with [facility] cardiology (Patricia banks) Hypertension Dementia "very early stages" Alert and oriented x3. granddaughter is the caregiver of patient. Post traumatic stress disorder On home oxygen therapy continuous 3lpm via n/c. (will increase to 4lpm via n/c if needed) History of COVID-19 Spring 2020. treated at [facility] inpatient. symptoms included: sob, cough, desaturation 84-87%, congestion, headache, fatigue. no ventilator at the time. no current problems. Diarrhea started about 1 year ago -- will come and go. Chronic respiratory failure with hypoxia COPD (chronic obstructive pulmonary disease) Submucosal lesion of stomach Noted on EGD 11/06/20 Anticoagulated on Coumadin Paroxysmal A-fib feels her heart race at times. Chronic pain on daily narcotics (tramadol PRN) Morbid obesity Anxiety and depression History of stroke "embolic stroke, underlying PFO" total of 9 strokes -> last stroke ~6+years ago. damaged urinary nerve and mild left sided weakness. Surgical History (Updated 12/15/23 @ 00:10 by Louisa Daurbano) Hx of lumpectomy left breast (benign) History of cataract surgery bilateral History of cardiac cath [facility] - "long time ago" -- pt unsure of details. H/O colonoscopy H/O esophagogastroduodenoscopy Status post hernia repair Right inguinal Status post hysterectomy MERT with BSO Status post cholecystectomy Family History Grandmother (Maternal) FHx: bladder cancer Father FHx: stroke Other Heart disease No family history of adverse response to anesthesia Social History Smoking Status: Former smoker Tobacco Type: Cigarettes Cigarettes Per Day: 2 ppd; Second Hand Exposure: No; Do You Dip or Chew Tobacco: No; Hx Alcohol Use: No Hx Substance Use: No Preferred Language: Faroese Communication Ability: Effective Temporary Office Assistant Required: No Beliefs That Will Affect Care: None marital status: / Current Living Situation: Alone Current Living Situation Comment: Lives home teddy, granddaughter clarice assist patient Other Information That Helps Us Care for You: No Feels Safe at Home: Yes Safety Concerns: Feels Safe At This Time Assistive Devices: Hospital Bed, Oxygen - Continuous and Walker Review of Systems Review of Systems: All systems reviewed & are unremarkable except as noted in HPI & below Physical Exam Physical Exam: Constitutional: No acute distress HEENT: EOMI, PERRLA Respiratory system: Decreased air entry bilaterally, no wheeze, no rhonchi, mild crackles bilateral lower lobes CVS: S1-S2 positive Abdomen: Soft, nontender, nondistended, positive bowel sounds x4, obese Extremities: +2 pulses bilaterally radialis/ dorsalis pedis, no cyanosis, +1 pitting edema bilateral lower extremity Neuro: Awake alert oriented x3 Psych: Anxious mood and affect Skin: no rashes, warm and dry Lymphatic: no cervical or axillary lymphadenopathy Results & Data Results & Data Vital Signs (Past 12 Hours) Vital Signs Temp Pulse Resp BP BP Pulse Ox O2 Del Method 12/21/23 11:08 36.7 C 65 18 113/64 90 Nasal Cannula 12/21/23 08:04 Nasal Cannula 12/21/23 08:04 Nasal Cannula 12/21/23 07:41 36.5 C 66 17 97/65 L 90 Oxymask 12/21/23 07:27 75 18 90 Nasal Cannula 12/21/23 04:15 36.6 C 65 19 93/55 L 91 Nasal Cannula 12/21/23 02:27 66 20 90 Nasal Cannula O2 Flow Rate 12/21/23 11:08 3 12/21/23 08:04 3 12/21/23 08:04 3 12/21/23 07:41 3 12/21/23 07:27 3 12/21/23 04:15 3 12/21/23 02:27 4 PG Care Time/CCT Total # of Minutes Spent Total Time Spent with Patient: Total time spent is greater than 50% in coordination of care (as documented) at patient's floor/unit and/or counseling patient: Coding Level of Care Code 10244 INT INP/OBS CARE 2/55MIN Diagnoses Obesity hypoventilation syndrome E66.2 Chronic respiratory failure with hypoxia and hypercapnia J96.11; J96.12 Physical deconditioning R53.81 Difficulty with BiPAP use Z78.9
--- NOTE | 2023-12-22 07:34 | Hospitalist Progress Note ---
Date of Service December 21, 2023 Assessment & Plan (1) COVID-19: (2) COPD exacerbation: (3) Chronic respiratory failure with hypoxia: (4) Acute on chronic diastolic (congestive) heart failure: (5) Hypophosphatemia: (6) PAF (paroxysmal atrial fibrillation): (7) Anxiety and depression: (8) Dementia: (9) Chronic pain: (10) Chronic anemia: Plan Patient is a 63yoF with PMHx significant for COPD, chronic hypoxic respiratory failure on chronic 4-5 L oxygen, paroxysmal atrial fibrillation anticoagulated with Eliquis, chronic diastolic heart failure, anxiety, depression, dementia, chronic pain and chronic anemia who presented to the ER with URI symptoms in the setting of a covid infection. Acute on chronic hypoxic hypercapnic respiratory failure COVID-19 COPD exacerbation In ER T: 37.6 C, P: 82, R: 15, BP 106/65, 99% on 5 L nasal cannula WBC wnl, lactate and procalcitonin WNL vbg: pH: 7.29, pCO2: 73, HCO3: 35 CXR: No acute disease but does note cardiomegaly CT chest PE protocol showing no acute changes, no PE Blood Cx x 2 NGTD Sputum Cx no sig growth In ER empirically treated with cefepime, received hour-long nebulizer, Solu- Medrol 125 mg, IV Tylenol, Mucinex Treated with Solu-Medrol 40 mg Q8H for COPD exacerbation, tapered down as tolerated before switching to dexamethasone per Pulm recs Scheduled duonebs, incentive spirometry, flutter valve, Mucinex and other supportive measures for covid Continued Zithromax 500mg daily for 3 days 12/15 - reports sputum production. will repeat sputum cultx. Breathing not improved per pt. She has rhonchi and wheezes on exam, repeat CXR - negat. for acute disease. Pt requires bipap support based on vbg, states cannot tolerate. Respiratory contacted, pulm consulted- appreciate recs. Continue bipap as tolerated (strongly recommended and pt aware, reiterated by pulm and respiratory), AM VBG 12/10- VBG improved today as pt used bipap overnight. Agreeable to using again tonight. Per pulm, can switch to Dexamethasone for covid-19 support, avoid hyperoxygenation. Continue bipap use. Pulm recommending repeat psych consult to discuss her chronic use of benzos which can suppress respiratory drive as well. Appreciate recs 12/11- VBG a little worse than the day before, pt notes she used the bipap overnight. Agreeable to using during the day today after another lorin discussion. Psychiatry consult placed as chronic benzo use likely playing a factor in her respiratory status but pt remains extremely anxious, appreciate further recs. Continue Dexamethasone, bipap 12/12- VBG improved significantly with use of bipap throughout the day before. Continued with IV Dexamethasone 12/13-Stable symptoms, continue with Dexamethasone 12/14- stable, Encourage bipap use. Nocturnal pulse ox study ordered with AM ABG. Follow in AM. 12/21 Pulm. reconsulted for bipap needs - 63-year-old female with multiple comorbid conditions including severe anxiety, OHS, chronic hypercapnic and hypoxemic respiratory failure and morbid obesity presenting to the hospital due to lethargy. She was identified as having COVID- 19 on admission. Her ABG today is suggestive of compensated chronic hypercapnic respiratory failure. The patient has been intolerant of BiPAP due to severe anxiety. She is hesitant about using BiPAP in the future. Given the patient's inability to tolerate BiPAP due to her severe anxiety disorder and given that she does not have clear documented COPD, I do not think that she would be a good candidate for BiPAP at this time. Additionally, she does not have acute on chronic decompensated hypercapnic respiratory failure presently and does not require rescue BiPAP at this time. She may certainly be a candidate for AVAPS/trilogy in the future due to her chronic hypercapnic and hypoxemic respiratory failure related to OHS. Again, I am not certain that she would tolerate AVAP/Trilogy and it unclear whether therapy would need to be escalated to this level at this point in time. I think the next best step at this time would be to proceed with an outpatient polysomnography which could be ordered by her PCP. I have no further recommendations. Acute on chronic diastolic (congestive) heart failure Cardiomegaly BNP: 354, trop wnl Chest xray noting cardiomegaly CT chest PE protocol no acute changes, no PE Last echo 08/2023- noted EF 65-70%, mild LVH, Grade 1 diastolic dysfunction, mild tricuspid regurg, no pulm HTN Repeat echo noting LVH, EF 60-65% In ER given 40 mg Lasix IV. Herrera catheter placed and patient starting to diurese Monitor I's and O's, daily weights (Home dose of lasix was 40mg MWF & increased to 40mg BID on 12/06/23) Monitor response of diuresis, likely will need further lasix doses 12/10- pt restarted on home lasix dose 40mg BID 12/11- continue lasix, monitor I&Os, daily weights 12/12 stable, weight down from 146 on admission to 138 today 12/13- stable 12/14- weight stable, continue home lasix Chest Pain Pt stated she was having chest pain on 12/[address] reviewed with no acute changes Pt very anxious at that time, given her Ativan dose Continue to monitor Remains stable UTI Pt reported urinary symptoms and UA/ ucultx were obtained Herrera placed on admission sample questionable however positive for Kleb aerogenes and E. faecium Pt reports suprapubic tenderness Discussed with pt that ideally we would remove herrera at this time, and repeat urine collection, she is very upset and cries at possibility of removing herrera. Also discussed that catheter puts her in risk of infection, however she absolutely does not wish for it to be removed. Started treatment w/ cefepime and dapto - discussed w/ pharmacy and pt's RN in detail Switched to PO abx - bactrim and macrobid 12/19- reports suprapubic and lower abd. pain- agreed to remove Herrera. Herrera now removed. Will repeat UA. Will obtain CT abd/pelvis CT abd./pelvis (12/20) - 1. No acute intra-abdominal or intrapelvic abnormality. 2. No bowel obstruction or bowel wall thickening. UA - negative Iron Deficiency Anemia Chronic anemia History of GI bleed in 07/2023 History of chronic anemia. History iron deficiency anemia H/H: 8.7 on admission, down from 9.6 on 11/26/2023 Iron level of 13, given IV Venofer, continue iron supplement at this time Folate and B12 levels currently wnl Continue to monitor PCP follow up Hypophosphatemia Phosphate: 1.9 on admission Replete as needed PAF (paroxysmal atrial fibrillation) On metoprolol for rate control Anticoagulated on Eliquis Continue Eliquis and metoprolol with holding parameters Anxiety and depression Continue sertraline, buspirone, lorazepam 12/10- consult placed to psych once more for lorazepam reevaluation in setting of respiratory issues noted above. 12/11- awaiting further psych recs, appreciated 12/12- awaiting further psych recs as her scheduled lorazepam is further worsening her respiratory acidosis for which bipap is absolutely needed (vs. a tracheostomy per pulm) and pt struggles to use the bipap. However, with her severe anxiety, alternative treatment is needed . Appreciate recs. 12/13-case discussed with pulm and Psych. Psych recs in chart: increase seroquel to 100mg daily for 2 days then if tolerates increase to 150mg. Increase buspar to 10mg TID. Wean lorazepam by 0.5 mg every 2 days (i.e., 0.5 mg TID x 2 days, 0.25 mg QID x 2 days, 0.25 mg BID x 2 days, then stop). 12/14- day 2 today of increased seroquel at 100mg, tolerating. Day two of lorazepam of 0.5mg TID. 12/15- increased sertraline to 150mg and decrease lorazepam to 0.25mg QID for 2 days per psychiatry recs. In addition, hydroxyzine started by psychiatry as well. 12/18 - increased lorazepam to 0.5 TID after discussing w/ psychiatry Dementia Continue donepezil Chronic pain chronic left hip and left leg pain LLE negative for DVT on doppler US Continue gabapentin, baclofen and tramadol as needed Scheduled Tylenol for now Continue other home meds as ordered. Diet: HH/Low sodium DVT Prophylaxis:On Eliquis Dispo: PT/OT orders placed, CM involved in DC needs. Plan for [facility] to [facility]. Admission and Anticipated Discharge Date Admission Date: December 08, 2023 Subjective Pt was seen in follow up of covid 19 , anxiety (seen by psych), need for poss. bipap (seen by pulm) laying in bed, on suppl. O2. Previously discussed with psychiatry and pulm- decision to wean lorazepam. Pt seen by psychiatry re: anxiety Herrera removed and as pt reported lower abd. pain - repeated CT abd/pelvis - which is negative. Repeated UA - negat. Worked with PT - was able to stand up from bed. [facility] aware - worried about pt's participation, and so not accepting the pt. CM involved plan for [facility] Discussed w/ psychiatry - increased lorazepam to 0.5 tid and cont. to monitor Review of Systems Review of Systems: All systems reviewed & are unremarkable except as noted in Subjective Physical Exam Physical Exam: General: morbidly obese F in NAD, on suppl. O2 Psych: anxious at times Neuro: difficulty with movements in bed HEENT: NC/AT, NC -suppl. O2 CV: RRR Resp: mild rhonchi bilaterally, mild scattered wheezes bilaterally (improved) Abdomen: Soft, obese, nontender, + bowel sounds Extremities: mild Edema in lower extremities bilaterally (improved). Results & Data Results & Data Vital Signs (Past 12 Hours) Vital Signs Temp Pulse Pulse Resp BP Pulse Ox O2 Del Method 12/21/23 23:38 Nasal Cannula, BiPAP 12/21/23 23:00 36.7 C 80 15 117/68 91 CPAP 12/21/23 22:56 81 15 92 12/21/23 22:39 85 12/21/23 22:30 85 18 92 Nasal Cannula O2 Flow Rate FiO2 12/21/23 23:38 12/21/23 23:00 12/21/23 22:56 35 12/21/23 22:39 12/21/23 22:30 3 Laboratory Results 12/21/23 Range/Units 10:45 ABG pH 7.44 (7.35-7.45) ABG pCO2 59 H (35-46) mmHg ABG pO2 75 L (80-95) mmHg ABG HCO3 40 H (19-24) mmol/L ABG O2 Saturation 96.5 H (90-95) % ABG Base Excess 13.3 H (-9-1.8) mEq/L [place] Test Pos (Pos) Oxygen Given 3 L
--- NOTE | 2023-12-22 13:22 | Discharge Summary ---
Date of Service December 22, 2023 Admission HPI Per Admitting Provider Patient is 63-year-old female with PMH COPD, chronic hypoxic respiratory failure on chronic 4 L oxygen, paroxysmal atrial fibrillation anticoagulated on Eliquis, chronic diastolic heart failure, anxiety, depression, dementia, chronic pain, chronic anemia presented to ER with complaint of cough and shortness of breath x 2 days. History obtained from patient as well as inpatient and outpatient chart review. Patient with history hospitalization 11/16/2023-11/26/2023 E. coli UTI, vomiting diarrhea illness with electrolyte abnormality and was treated with IV Rocephin x 5 days, discharged on cefdinir for 6 more days. Patient was discharged to [facility] for rehab. She reports she returned home on 12/05/2023. States on 12/06/2023 woke up with sore throat, congestion, cough. She also reports has been having wheezing and feeling short of breath. Past 2 days with fatigue and generalized weakness and states that she just been laying in bed. Reports minimal oral intake. States has been using her oxygen at 5 L. She reports she has been having home health come in to see her. Her Lasix was to be increased from 40 mg daily to 40 mg twice daily on 12/06/2023 secondary to increased BLE edema. It is reported Home health was in to see patient today and found that she had been lying in her bed and was soiled and had reported noted BLE edema and noted audible wheezing. EMS was called to transport patient to ER . Patient states did not take her medications yesterday or today. She states yesterday had 3 episodes of vomiting and 1-2 episodes of loose stool. Reports was ambulating with walker upon return home from [facility]. She reports chronic pain to left hip and left leg. Denies any known fever/chills, diaphoresis, hematemesis, hematochezia, melena, CARVALHO, dizziness, CP, palpitations, hemoptysis, otalgia, abdominal pain, paresthesias, rashes, urinary symptoms. Admission Exam Per Admitting Provider General: no acute distress, chronic ill appearing, obese female Head: normocephalic, atraumatic Eyes: conjunctiva non-injected, anicteric ENT: normal inspection external ears, nose, mucous membranes moist Neck: supple, trachea midline Lungs: no respiratory distress on current 5L via NC, +diffuse wheezing throughout CV: RRR, 1+ pretibial edema Abd: Protuberant, normal BS, soft, non-tender Ext: no cyanosis, no calf tenderness Neuro: A&O x 3, no focal deficits noted, flat affect Skin: warm, dry Principal Diagnosis Acute on chronic hypoxic hypercapnic respiratory failure + Covid 19 COPD exacerbation Obesity hypoventilation syndrome Acute on chronic diastolic (congestive) heart failure Cardiomegaly UTI Ambulatory dysfunction Discharge Exam General: morbidly obese F in NAD, on suppl. O2 Psych: anxious at times Neuro: difficulty with movements in bed HEENT: NC/AT, NC - suppl. O2 CV: RRR Resp: mild rhonchi bilaterally, mild scattered wheezes bilaterally (improved) Abdomen: Soft, obese, nontender, + bowel sounds Extremities: mild Edema in lower extremities bilaterally (improved). Discharge Data Allergies Allergy/AdvReac Type Severity Reaction Status Date / Time aspirin Allergy Unknown TAKES Verified 12/08/23 17:47 COUMADIN salicylates AdvReac Unknown ?DUE TO Verified 12/08/23 17:47 COUMADIN? Consultations 12/08/23 18:31 ED Decision to Admit Stat 12/09/23 12:01 Consult Pulmonology Routine 12/11/23 07:03 Consult Psychiatry Routine 12/21/23 08:06 Consult Pulmonology Routine Ordered Studies 12/10/23 08:00 CT angio chest PE protocol Routine FINDINGS: Pulmonary arteries: Unremarkable. No pulmonary embolism. Aorta: Mild atherosclerotic disease throughout the aorta with no aneurysm or dissection. Lungs: The lungs are underexpanded with mild vascular crowding. Mild bilateral lower lobe atelectasis, otherwise remainder of the lung mena are clear. No mass. Pleural space: Unremarkable. No significant effusion. No pneumothorax. Heart: Borderline mild cardiomegaly. No significant pericardial effusion. No evidence of RV dysfunction. Bones/joints: No acute fracture. No dislocation. Soft tissues: Unremarkable. Lymph nodes: Unremarkable. No enlarged lymph nodes. Gallbladder and bile ducts: Abdomen revealed status post cholecystectomy, otherwise unremarkable. Other findings: Mild degenerative disease of the spine. IMPRESSION: 1. No pulmonary embolus or aortic dissection pain 2. Mild bilateral lower lobe atelectasis, otherwise no acute cardiopulmonary disease. 12/10/23 15:22 US venous doppler LE LT Urgent FINDINGS: Deep veins: Unremarkable. No DVT in the visualized common femoral, femoral, proximal deep femoral or popliteal veins. The veins demonstrate normal color flow, are normally compressible, with normal phasic flow and/or augmentation response. Superficial veins: Unremarkable. No thrombus in the visualized great saphenous vein. Soft tissues: Nonspecific edema involving the left calf region. No popliteal cyst. Other findings: Suboptimally seen calf veins. IMPRESSION: No ultrasonographic evidence of deep venous thrombosis involving the left lower extremity. 12/19/23 18:38 CT abd pelvis IV con only Routine FINDINGS: Mild bibasilar mucous plugging. No free air. Unremarkable spleen, pancreas and liver with probable hepatic steatosis. Cholecystectomy. Patent portal vein. Thickening of the left greater than right adrenal glands bilateral adrenal gland nodule redemonstrated measuring up to 1.9 cm on the left and 1.7 cm on the right compatible with adenomata. Mild cortical thinning of the kidneys with areas of parenchymal scarring. No hydronephrosis. Decompressed urinary bladder with mild wall thickening. Hysterectomy. Atherosclerosis of the aorta without aneurysm. There is no lymphadenopathy. No bowel obstruction or bowel wall thickening. No ascites or mesenteric inflammation. Metallic density focus noted within the hepatic flexure on image 127 is unchanged from prior suggestive of endoscopy clip. Normal appendix. Unremarkable soft tissues. No acute fracture. IMPRESSION: 1. No acute intra-abdominal or intrapelvic abnormality. 2. No bowel obstruction or bowel wall thickening. 3. Additional findings as above. Hospital Course (1) COVID-19: (2) COPD exacerbation: (3) Chronic respiratory failure with hypoxia: (4) Acute on chronic diastolic (congestive) heart failure: (5) Hypophosphatemia: (6) PAF (paroxysmal atrial fibrillation): (7) Anxiety and depression: (8) Dementia: (9) Chronic pain: (10) Chronic anemia: Plan Patient is a 63yoF with PMHx significant for COPD, chronic hypoxic respiratory failure on chronic 4-5 L oxygen, paroxysmal atrial fibrillation anticoagulated with Eliquis, chronic diastolic heart failure, anxiety, depression, dementia, chronic pain and chronic anemia who presented to the ER with URI symptoms in the setting of a covid infection. Acute on chronic hypoxic hypercapnic respiratory failure COVID-19 COPD exacerbation In ER T: 37.6 C, P: 82, R: 15, BP 106/65, 99% on 5 L nasal cannula WBC wnl, lactate and procalcitonin WNL vbg: pH: 7.29, pCO2: 73, HCO3: 35 CXR: No acute disease but does note cardiomegaly CT chest PE protocol showing no acute changes, no PE Blood Cx x 2 NGTD Sputum Cx no sig growth In ER empirically treated with cefepime, received hour-long nebulizer, Solu- Medrol 125 mg, IV Tylenol, Mucinex Treated with Solu-Medrol 40 mg Q8H for COPD exacerbation, tapered down as tolerated before switching to dexamethasone per Pulm recs Scheduled duonebs, incentive spirometry, flutter valve, Mucinex and other supportive measures for covid Continued Zithromax 500mg daily for 3 days 12/15 - reports sputum production. will repeat sputum cultx. Breathing not improved per pt. She has rhonchi and wheezes on exam, repeat CXR - negat. for acute disease. Pt requires bipap support based on vbg, states cannot tolerate. Respiratory contacted, pulm consulted- appreciate recs. Continue bipap as tolerated (strongly recommended and pt aware, reiterated by pulm and respiratory), AM VBG 12/10- VBG improved today as pt used bipap overnight. Agreeable to using again tonight. Per pulm, can switch to Dexamethasone for covid-19 support, avoid hyperoxygenation. Continue bipap use. Pulm recommending repeat psych consult to discuss her chronic use of benzos which can suppress respiratory drive as well. Appreciate recs 12/11- VBG a little worse than the day before, pt notes she used the bipap overnight. Agreeable to using during the day today after another lorin discussion. Psychiatry consult placed as chronic benzo use likely playing a factor in her respiratory status but pt remains extremely anxious, appreciate further recs. Continue Dexamethasone, bipap 12/12- VBG improved significantly with use of bipap throughout the day before. Continued with IV Dexamethasone 12/13-Stable symptoms, continue with Dexamethasone 12/14- stable, Encourage bipap use. Nocturnal pulse ox study ordered with AM ABG. 12/21 Pulm. reconsulted for bipap needs - 63-year-old female with multiple comorbid conditions including severe anxiety, OHS, chronic hypercapnic and hypoxemic respiratory failure and morbid obesity presenting to the hospital due to lethargy. She was identified as having COVID- 19 on admission. Her ABG today is suggestive of compensated chronic hypercapnic respiratory failure. The patient has been intolerant of BiPAP due to severe anxiety. She is hesitant about using BiPAP in the future. Given the patient's inability to tolerate BiPAP due to her severe anxiety disorder and given that she does not have clear documented COPD, I do not think that she would be a good candidate for BiPAP at this time. Additionally, she does not have acute on chronic decompensated hypercapnic respiratory failure presently and does not require rescue BiPAP at this time. She may certainly be a candidate for AVAPS/trilogy in the future due to her chronic hypercapnic and hypoxemic respiratory failure related to OHS. Again, I am not certain that she would tolerate AVAP/Trilogy and it unclear whether therapy would need to be escalated to this level at this point in time. I think the next best step at this time would be to proceed with an outpatient polysomnography which could be ordered by her PCP. I have no further recommendations. Also, per previous pulmonary note - pt was started on Incruse inhaler which she should be using daily. Acute on chronic diastolic (congestive) heart failure Cardiomegaly BNP: 354, trop wnl Chest xray noting cardiomegaly CT chest PE protocol no acute changes, no PE Last echo 08/2023- noted EF 65-70%, mild LVH, Grade 1 diastolic dysfunction, mild tricuspid regurg, no pulm HTN Repeat echo noting LVH, EF 60-65% In ER given 40 mg Lasix IV. Herrera catheter placed and patient starting to diurese Monitor I's and O's, daily weights (Home dose of lasix was 40mg MWF & increased to 40mg BID on 12/06/23) Monitor response of diuresis, likely will need further lasix doses 12/10- pt restarted on home lasix dose 40mg BID 12/11- continue lasix, monitor I&Os, daily weights 12/12 stable, weight down from 146 on admission to 138 today 12/13- stable 12/14- weight stable, continue home lasix 12/21 - Cr was little elevated, her weight is down, recommend to continue with 40 mg daily lasix. Low sodium diet. FR 1.5 L/day. Cont. to closely monitor weight and check BMP weekly x3. Monitor for any extra edema however weight would be likely the most accurate way to monitor her fluid status given her body habitus. Chest Pain Pt stated she was having chest pain on 12/[address] reviewed with no acute changes Pt very anxious at that time, given her Ativan dose Continue to monitor Remains stable UTI Pt reported urinary symptoms and UA/ ucultx were obtained Herrera placed on admission sample questionable however positive for Kleb aerogenes and E. faecium Pt reports suprapubic tenderness Discussed with pt that ideally we would remove herrera at this time, and repeat urine collection, she is very upset and cries at possibility of removing ehrrera. Also discussed that catheter puts her in risk of infection, however she absolutely does not wish for it to be removed. Started treatment w/ cefepime and dapto - discussed w/ pharmacy and pt's RN in detail Switched to PO abx - bactrim and macrobid 12/19- reports suprapubic and lower abd. pain- agreed to remove Herrera. Herrera now removed. Will repeat UA. Will obtain CT abd/pelvis CT abd./pelvis (12/20) - 1. No acute intra-abdominal or intrapelvic abnormality. 2. No bowel obstruction or bowel wall thickening. UA - negative Iron Deficiency Anemia Chronic anemia History of GI bleed in 07/2023 History of chronic anemia. History iron deficiency anemia H/H: 8.7 on admission, down from 9.6 on 11/26/2023 Iron level of 13, given IV Venofer, continue iron supplement at this time Folate and B12 levels currently wnl Continue to monitor PCP follow up Hypophosphatemia Phosphate: 1.9 on admission Replete as needed PAF (paroxysmal atrial fibrillation) On metoprolol for rate control Anticoagulated on Eliquis Continue Eliquis and metoprolol with holding parameters Anxiety and depression Continue sertraline, buspirone, lorazepam 12/10- consult placed to psych once more for lorazepam reevaluation in setting of respiratory issues noted above. 12/11- awaiting further psych recs, appreciated 12/12- awaiting further psych recs as her scheduled lorazepam is further worsening her respiratory acidosis for which bipap is absolutely needed (vs. a tracheostomy per pulm) and pt struggles to use the bipap. However, with her severe anxiety, alternative treatment is needed . Appreciate recs. 12/13-case discussed with pulm and Psych. Psych recs in chart: increase seroquel to 100mg daily for 2 days then if tolerates increase to 150mg. Increase buspar to 10mg TID. Wean lorazepam by 0.5 mg every 2 days (i.e., 0.5 mg TID x 2 days, 0.25 mg QID x 2 days, 0.25 mg BID x 2 days, then stop). 12/14- day 2 today of increased seroquel at 100mg, tolerating. Day two of lorazepam of 0.5mg TID. 12/15- increased sertraline to 150mg and decrease lorazepam to 0.25mg QID for 2 days per psychiatry recs. In addition, hydroxyzine started by psychiatry as well. 12/18 - increased lorazepam to 0.5 TID after discussing w/ psychiatry Dementia Continue donepezil Chronic pain chronic left hip and left leg pain LLE negative for DVT on doppler US Continue gabapentin, baclofen and tramadol as needed Scheduled Tylenol for now Continue other home meds as ordered. Diet: HH/Low sodium DVT Prophylaxis:On Eliquis Dispo: PT/OT orders placed, CM involved in DC needs. Plan for DC to [facility]. Total Time Total Time Spent Total Time Spent (In Minutes): 60 Discharge Plan Discharge Items Patient Disposition: Transfer Halfway Fac Reason For Visit: COVID, FLUID OVERLOAD Discharge Diagnosis: Acute on chronic hypoxic hypercapnic respiratory failure + Covid 19 COPD exacerbation Obesity hypoventilation syndrome Acute on chronic diastolic (congestive) heart failure Cardiomegaly UTI Ambulatory dysfunction Activity: Per Instructions section Non-emergency contact: Primary Care Provider Call non-emergency contact if: you have any medication questions and your symptoms worsen Follow-up/Referrals: Roger Alexandra MD [Primary Care Provider] - Diet: Heart Healthy and Low Sodium (2gm) Diet Texture: Easy to Chew Addtl Attending Provider Instructions: Follow up closely with primary care physician. When discharged from Center care you should be seen by primary care doctor within 1 week. Start using Incruse inhaler daily. You were started on this inhaler in the hospital by a lung doctor. Your anxiety medications were changed in the hospital by psychiatrist - zoloft was increased to 150 mg, Buspar was increased to 10 mg 3-times a day. Continue lorazepam 0.5 mg 3-times a day. It is recommended that you have a sleep study done and pulmonary tests to determine your possible COPD. Use bipap at night as tolerated/ as needed. Pending Studies at Discharge: No Stand-Alone Forms: My [facility] Skilled Items Patient informed of condition?: Yes DNR: No Discharge Level of Care: Skilled Communicable Disease: No Discharge Prognosis: Other Lines: None Urinary Catheter: No Medications and DC Order Prescriptions: New Incruse Ellipta 62.5 mcg/actuation Blister With Device 1 inh inhalation DAILY Qty: 30 0RF ferrous sulfate 325 mg (65 mg iron) Tablet,Delayed Release (Dr/Ec) 325 mg PO DAILY Qty: 30 0RF buspirone 5 mg Tablet 10 mg PO TID 30 Days Qty: 180 0RF sertraline 100 mg Tablet 150 mg PO HS 30 Days Qty: 45 0RF acetaminophen [Tylenol Extra Strength] 500 mg Tablet 1,000 mg PO Q8H PRN (Reason: pain) Qty: 20 0RF hydroxyzine HCl 25 mg Tablet 25 mg PO TID PRN (Reason: anxiety) Qty: 14 0RF Saline Mist 0.65 % Aerosol,Largo 1 spray NA TID PRN (Reason: dry nasal passages) Qty: 44 0RF furosemide 40 mg Tablet 40 mg PO DAILY Qty: 30 0RF Advanced Probiotic 625 mg (10 billion cell) Capsule 2 cap PO DAILY Qty: 14 0RF polyethylene glycol 3350 [Miralax] 17 gram Powder In Packet 17 g PO DAILY PRN (Reason: constipation) Qty: 14 0RF melatonin 3 mg Tablet 3 mg PO HS PRN (Reason: sleep) Qty: 10 0RF guaifenesin [Mucinex] 600 mg Tablet Extended Release 12hr 1,200 mg PO Q12 Qty: 10 0RF lorazepam 0.5 mg Tablet 0.5 mg PO TID Qty: 10 0RF oxycodone 5 mg Tablet 5 mg PO Q6H PRN (Reason: pain (8-10)) Qty: 7 0RF Continued albuterol sulfate 90 mcg/actuation HFA aerosol inhaler 2 puff INHALATION QID PRN (Reason: sob) albuterol sulfate 5 mg/mL Solution For Nebulization 2.5 mg INHALATION DIRECTED PRN (Reason: Shortness Of Breath Or Wheezing) omeprazole 20 mg capsule,delayed release(DR/EC) 20 mg PO [facility] montelukast 10 mg Tablet 10 mg PO HS Qty: 30 1RF docusate sodium 100 mg Capsule 100 mg PO BID gabapentin 300 mg capsule 300 mg PO TID cholecalciferol (vitamin D3) 1,250 mcg (50,000 unit) capsule 50,000 unit PO WE Rx Instructions: wed ipratropium-albuterol 0.5 mg-3 mg(2.5 mg base)/3 mL Solution For Nebulization 3 ml INHALATION QID PRN (Reason: Shortness Of Breath Or Wheezing) baclofen 10 mg tablet 10 mg PO TID PRN (Reason: .muscle spasm) nystatin [Nyamyc] 100,000 unit/gram powder 1 applic TOPICAL BID Eliquis 5 mg tablet 5 mg PO Q12 Vitron-C 65 mg iron- 125 mg Tablet,Delayed Release (Dr/Ec) 2 tab PO QAM metoprolol succinate 25 mg tablet extended release 24 hr 25 mg PO QAM tramadol 50 mg Tablet 50 mg PO Q6H PRN (Reason: pain) Qty: 20 0RF donepezil 10 mg Tablet 10 mg PO QAM Qty: 30 0RF Discontinued buspirone 5 mg tablet 5 mg PO TID furosemide 40 mg tablet 40 mg PO BID Rx Instructions: Just increased to BID on 12/06/23 mirtazapine 30 mg tablet 30 mg PO HS sertraline 50 mg tablet 50 mg PO HS lorazepam 0.5 mg Tablet 0.5 mg PO QID Qty: 28 0RF Rx Instructions: For 14 days, started 12/04/23 Discharge Orders: Discharge Order (Routine); Ordered 12/22/23 Ordered By: Mohit Singh Admission Data Admit Date/Time: 12/08/23 19:18 Attending Provider: Mohit Singh Admit Provider: Mar Brand Primary Care Provider: Roger Alexandra Other Providers: Mar Brand; Maria Martino; [facility]; Shaye Sylvester; Ely Romano; Dennis Mcclure; Edison Chappell; [facility]; Narendra Krishnamurthy
[2023-12-23] MEDS ORDERED: ERGOCALCIFEROL 1250 MCG (50,000 UNITS) CAP PO SCH (09:00)
== END 2023-12-22 16:17 | DRG 177 ==
LOC: ED 15:40 → 4W 19:18 → SUATTDRO 19:18 → 4W 21:16